=== PATIENT | male | born 1940 | race Caucasian/White ===

== ENCOUNTER → 2018-04-06 14:17 | Outpatient (CLI) | payer MEDICARE, OTHER, SELFPAY | PROVIDERS: Family Provider Family Medicine; PCP Family Medicine; Visit Provider Urology | DX: R31.9 Hematuria, unspecified (principal) | CPT/HCPCS: 87086 ==

== ENCOUNTER → 2020-08-03 12:08 | Outpatient (CLI) | payer MEDICARE, OTHER, SELFPAY ==
[2020-08-03 15:48] LABS: Ferritin 38 ng/mL (26-388); Iron 24 ug/dL (65-175); Iron Binding Capacity,Total 410 ug/dL (250-450); PERCENT IRON SATURATION 5.9 % (15.0-55.0)
== END ==
PROVIDERS: PCP Family Medicine
DX: D50.9 Iron deficiency anemia, unspecified (principal)
CPT/HCPCS: 36415; 82728; 83540; 83550

== ENCOUNTER → 2020-10-30 09:14 | Outpatient (CLI) | payer MEDICARE, OTHER, SELFPAY ==
[2020-10-30 10:48] LABS: Anion Gap 6 (5-15); BUN 46 mg/dL (7-18); BUN/Creat Ratio 19.5 RATIO (10-20); Calcium,Total 9.2 mg/dL (8.5-10.1); Chloride 98 mmol/L (98-107); Creatinine, Serum 2.36 mg/dL (0.70-1.30); EST Glomerular Filtration Rate 28 mL/min (>60); Est Glom Filt Rate - Afr Amer 34 mL/min (>60); Glucose 87 mg/dL (74-106); Potassium 3.7 mmol/L (3.5-5.1); Sodium Level 137 mmol/L (136-145)
== END ==
PROVIDERS: PCP Family Medicine
DX: I50.22 Chronic systolic (congestive) heart failure (principal); I26.99 Other pulmonary embolism without acute cor pulmonale; Z95.810 Presence of automatic (implantable) cardiac defibrillator
CPT/HCPCS: 36415; 80048

== ENCOUNTER → 2020-11-20 08:33 | Outpatient (CLI) | payer MEDICARE, OTHER, SELFPAY ==
[2020-11-20 10:14] LABS: Anion Gap 10 (5-15); BUN 50 mg/dL (7-18); BUN/Creat Ratio 16.3 RATIO (10-20); Calcium,Total 9.6 mg/dL (8.5-10.1); Chloride 94 mmol/L (98-107); Creatinine, Serum 3.07 mg/dL (0.70-1.30); EST Glomerular Filtration Rate 21 mL/min (>60); Est Glom Filt Rate - Afr Amer 25 mL/min (>60); Glucose 86 mg/dL (74-106); Potassium 3.3 mmol/L (3.5-5.1); Sodium Level 139 mmol/L (136-145)
== END ==
PROVIDERS: PCP Family Medicine
DX: I50.22 Chronic systolic (congestive) heart failure (principal)
CPT/HCPCS: 36415; 80048

== ENCOUNTER → 2020-12-15 13:48 | Outpatient (CLI) | payer MEDICARE, OTHER, SELFPAY ==
[2020-12-15 15:19] LABS: Absolute Lymphocyte Count 1.05 X10^3/uL (0.83-4.51); Absolute Neutrophil Count 2.5 X10^3/uL (2.0-7.7); Basophil# 0.03 X10^3/uL; Basophil% 0.7 % (0-1); Eosinophil# 0.36 X10^3/uL; Eosinophils% 8.4 % (0-5); Hematocrit 36.8 % (40-54); Lymphocyte # 1.05 X10^3/ul (0.83-4.51); Lymphocyte % 24.6 % (19-41); Mean Corp Hgb Conc 32.6 g/dL (32-36); Mean Corpuscular Hgb 29.8 pg (27.0-32.0); Mean Corpuscular Volume 91.3 fL (80-94); Mean Platelet Vol. 10.7 fl (6.2-12.0); Monocyte# 0.33 X10^3/uL; Monocyte% 7.7 % (0-10); NRBC Flagged by Analyzer 0 % (0-5); Neutrophil # 2.49 X10^3/uL (2.7-7.7); Neutrophil % 58.4 % (47-70); Platelet Count 230 K/mm3 (150-450); RBC Distribution Width CV 16.6 % (11.6-14.6); RBC Distribution Width SD 55.8 fl (35.1-43.9); Red Blood Count 4.03 M/mm3 (4.6-6.2); White Blood Count 4.3 K/mm3 (4.4-11.0)
[2020-12-15 15:28] LABS: Ammonia < 10.0 umol/L (11-32)
[2020-12-15 15:39] LABS: AST(SGOT) 19 U/L (15-37); Alanine Aminotransfer ALT/SGPT 22 U/L (16-61); Albumin, Serum 3.7 g/dL (3.2-5.0); Alkaline Phosphatase 158 U/L (45-117); Anion Gap 10 (5-15); BUN 57 mg/dL (7-18); BUN/Creat Ratio 22.1 RATIO (10-20); Calcium,Total 9.4 mg/dL (8.5-10.1); Chloride 97 mmol/L (98-107); Creatinine, Serum 2.58 mg/dL (0.70-1.30); EST Glomerular Filtration Rate 26 mL/min (>60); Est Glom Filt Rate - Afr Amer 31 mL/min (>60); Globulin 3.7 g/dL (2.2-4.2); Glucose 114 mg/dL (74-106); Lipase 185 U/L (73-393); Potassium 3.8 mmol/L (3.5-5.1); Protein, Total 7.4 g/dL (6.4-8.2); Sodium Level 138 mmol/L (136-145)
== END ==
PROVIDERS: PCP Family Medicine; Referring Provider Family Medicine; Visit Provider Family Medicine
DX: K81.9 Cholecystitis, unspecified (principal)
CPT/HCPCS: 36415; 80053; 82140; 83690; 85025

== ENCOUNTER → 2021-01-19 09:59 | Outpatient (CLI) | payer MEDICARE, OTHER, SELFPAY ==
[2021-01-19 12:56] LABS: ALB/GLOB Ratio 1.1 RATIO (0.9-2.4); AST(SGOT) 27 U/L (15-37); Alanine Aminotransfer ALT/SGPT 25 U/L (16-61); Albumin, Serum 3.8 g/dL (3.2-5.0); Alkaline Phosphatase 142 U/L (45-117); Anion Gap 11 (5-15); BUN 52 mg/dL (7-18); BUN/Creat Ratio 19.6 RATIO (10-20); Calcium,Total 8.8 mg/dL (8.5-10.1); Chloride 98 mmol/L (98-107); Creatinine, Serum 2.65 mg/dL (0.70-1.30); EST Glomerular Filtration Rate 25 mL/min (>60); Est Glom Filt Rate - Afr Amer 30 mL/min (>60); Globulin 3.6 g/dL (2.2-4.2); Glucose 119 mg/dL (74-106); Potassium 3.9 mmol/L (3.5-5.1); Protein, Total 7.4 g/dL (6.4-8.2); Sodium Level 138 mmol/L (136-145)
== END ==
PROVIDERS: PCP Family Medicine; Visit Provider Family Medicine
DX: L29.9 Pruritus, unspecified (principal)
CPT/HCPCS: 36415; 80053

== ENCOUNTER → 2021-05-28 15:02 | Outpatient (CLI) | payer MEDICARE, OTHER, SELFPAY ==
[2021-05-28 15:46] LABS: Anion Gap 9 (5-15); BUN 82 mg/dL (7-18); BUN/Creat Ratio 30.8 RATIO (10-20); Calcium,Total 9.2 mg/dL (8.5-10.1); Chloride 97 mmol/L (98-107); Creatinine, Serum 2.66 mg/dL (0.70-1.30); EST Glomerular Filtration Rate 25 mL/min (>60); Est Glom Filt Rate - Afr Amer 30 mL/min (>60); Glucose 96 mg/dL (74-106); Potassium 4.5 mmol/L (3.5-5.1); Sodium Level 136 mmol/L (136-145)
== END ==
PROVIDERS: PCP Family Medicine
DX: I13.0 Hypertensive heart and chronic kidney disease with heart failure and stage 1 through stage 4 chronic kidney disease, or unspecified chronic kidney disease (principal); N18.9 Chronic kidney disease, unspecified
CPT/HCPCS: 80048

== ENCOUNTER → 2021-05-30 18:32 | Outpatient (CLI) | payer MEDICARE, OTHER, SELFPAY ==
[2021-05-30 18:54] LABS: Anion Gap 10 (5-15); BUN 83 mg/dL (7-18); BUN/Creat Ratio 28.4 RATIO (10-20); Calcium,Total 9.4 mg/dL (8.5-10.1); Chloride 99 mmol/L (98-107); Creatinine, Serum 2.92 mg/dL (0.70-1.30); EST Glomerular Filtration Rate 22 mL/min (>60); Est Glom Filt Rate - Afr Amer 27 mL/min (>60); Glucose 114 mg/dL (74-106); Potassium 5.3 mmol/L (3.5-5.1); Sodium Level 136 mmol/L (136-145)
== END ==
PROVIDERS: PCP Family Medicine
DX: R22.43 Localized swelling, mass and lump, lower limb, bilateral (principal); I50.9 Heart failure, unspecified; Z48.812 Encounter for surgical aftercare following surgery on the circulatory system
CPT/HCPCS: 80048

== ENCOUNTER → 2021-06-04 15:15 | Outpatient (CLI) | payer MEDICARE, OTHER, SELFPAY ==
[2021-06-04 17:28] LABS: Hematocrit 29.6 % (40-54); Hemoglobin 9.6 g/dL (13.0-16.5); Mean Corp Hgb Conc 32.4 g/dL (32-36); Mean Corpuscular Hgb 29.7 pg (27.0-32.0); Mean Corpuscular Volume 91.6 fL (80-94); Mean Platelet Vol. 10.6 fl (6.2-12.0); Platelet Count 238 K/mm3 (150-450); RBC Distribution Width CV 18.4 % (11.6-14.6); RBC Distribution Width SD 61.6 fl (35.1-43.9); Red Blood Count 3.23 M/mm3 (4.6-6.2); White Blood Count 3.8 K/mm3 (4.4-11.0)
== END ==
PROVIDERS: PCP Family Medicine
DX: I13.0 Hypertensive heart and chronic kidney disease with heart failure and stage 1 through stage 4 chronic kidney disease, or unspecified chronic kidney disease (principal); I50.23 Acute on chronic systolic (congestive) heart failure; Z79.01 Long term (current) use of anticoagulants
CPT/HCPCS: 85027

== ENCOUNTER → 2021-06-22 11:40 | Outpatient (CLI) | payer MEDICARE, OTHER, SELFPAY ==
[2021-06-22 15:40] LABS: Hemoglobin A1c < 3.8 % (3.8-5.6)
[2021-06-22 15:46] LABS: AST(SGOT) 33 U/L (15-37); Alanine Aminotransfer ALT/SGPT 22 U/L (16-61); Albumin, Serum 3.2 g/dL (3.2-5.0); Alkaline Phosphatase 132 U/L (45-117); Anion Gap 12 (5-15); BUN 124 mg/dL (7-18); BUN/Creat Ratio 43.4 RATIO (10-20); Bilirubin, Direct 0.42 mg/dL (0.00-0.30); Calcium,Total 9.8 mg/dL (8.5-10.1); Chloride 92 mmol/L (98-107); Cholesterol 147 mg/dL (200); Creatinine, Serum 2.86 mg/dL (0.70-1.30); EST Glomerular Filtration Rate 23 mL/min (>60); Est Glom Filt Rate - Afr Amer 27 mL/min (>60); Free T3 1.3 pg/mL (2.18-3.98); Globulin 4.1 g/dL (2.2-4.2); Glucose 93 mg/dL (74-106); High Density Lipoprotein 40 mg/dL; Potassium 3.4 mmol/L (3.5-5.1); Protein, Total 7.3 g/dL (6.4-8.2); Sodium Level 135 mmol/L (136-145); T4 Free Direct 0.67 ng/dL (0.76-1.46); Triglycerides 105 mg/dL; Very Low Density Lipoprotein 21 mg/dL (5-40)
== END ==
PROVIDERS: PCP Family Medicine; Referring Provider Family Medicine; Visit Provider Family Medicine
DX: I10 Essential (primary) hypertension (principal); E78.5 Hyperlipidemia, unspecified; E11.9 Type 2 diabetes mellitus without complications; P61.0 Transient neonatal thrombocytopenia; E03.9 Hypothyroidism, unspecified
CPT/HCPCS: 36415; 80048; 80061; 80076; 83036; 83880; 84439; 84443; 84481

== ENCOUNTER 2021-06-28 09:42 | Inpatient (IN) | payer MEDICARE, OTHER, SELFPAY ==
[2021-06-28] VITALS (18 sets, daily range): BP systolic 82–133; BP diastolic 37–78; PULSE 60–75; RESP 12–20; TEMP 36.2–36.8; O2SAT 100; BMI 24.1; BMI 23.1
--- NOTE | 2021-06-28 10:05 | CT_ITS ---
STUDY: CT BRAIN WITHOUT CONTRAST REASON FOR EXAM: Male, 81 years old. Trauma RADIATION DOSAGE (If Supplied By Facility): CTDIvol = ( 44.99 ) mGy, DLP = ( 829.85 ) mGycm TECHNIQUE: Transaxial CT imaging of the brain was performed without administration of intravenous contrast material. Individualized dose optimization techniques were used for this CT. COMPARISON: None. FINDINGS: There is no acute bleed or infarct. There are chronic ischemic and atrophic changes. The ventricles are normal in configuration. There is no hydrocephalus. The visualized paranasal sinuses are clear. The mastoid air cells are well aerated. There is no skull fracture. CT/Brain/Head without Contrast IMPRESSION: No acute intracranial abnormality. Chronic ischemic and atrophic changes. Electronically Signed: Rogelio Matias MD at 12:05 EST Tel , Service support ,
--- NOTE | 2021-06-28 10:09 | EKG12_ITS ---
Test Reason : FALL Blood Pressure : / mmHG Vent. Rate : 060 BPM Atrial Rate : 060 BPM P-R Int : 260 ms QRS Dur : 190 ms QT Int : 556 ms P-R-T Axes : 000 172 -31 degrees QTc Int : 556 ms AV dual-paced rhythm with prolonged AV conduction Biventricular pacemaker detected Abnormal ECG Confirmed by ABDULLAHI BRYANT, RIGOBERTO ([id number]), web editor LUISA GUNTER ([id number]) on 06/29/2021 1:24:23 PM Referred By: PRADIP Confirmed By:RIGOBERTO FERNANDO MD
--- NOTE | 2021-06-28 10:11 | EDS_ITS ---
HPI History of Present Illness Chief Complaint: Hypotension Informant: patient, spouse/S.O. and other Onset/Context/Timing Onset: Days Context: Sudden Onset Timing: Intermittent Quality: Orthostatic symptoms Location: Generalized Current Severity: Mild Maximum Severity: Severe Worsened by: Upright position Relieved by: Nothing Associated Symptoms Associated Symptoms: Nausea and dizziness Narrative Narrative: Patient is an elderly male with multiple medical problems who went to Dr. Martins's office because of dizziness. He thought he had problems with his ear. states he did remove wax. His blood pressure was noted to be low. He reports dark-colored stool. He is on an anticoagulant. Apparently he fell yesterday. He did hit his head. He denies loss of consciousness. He denies headache. He denies double vision, blurred vision or loss of vision. He denies ringing in his ears. He denies rhinorrhea, congestion postnasal drainage. He denies sore throat. He denies shortness of breath or difficulty breathing. He denies chest discomfort. He denies abdominal pain. He does report dark-colored stools. He denies leg pain or discoloration. He does have swelling due to CHF. He denies increased orthopnea or PND. He denies dysuria, frequency, urgency or hematuria. Patient states he is not on anticoagulant. When arrived she had for me that he is on anticoagulant, Eliquis. Patient is not a good informant. Prior similar symptoms: No Recent Illness/Hospitalization: No [facility] Medical History (Updated 06/28/21 @ 11:[address] Fabiano Decker MD) Benign positional vertigo GI bleed Allergy/AdvReac Type Severity Reaction Status Date / Time No Known Allergies Allergy Verified 06/28/21 09:48 Surgical History unable to obtain unable to obtain Social History (Updated 06/28/21 @ 10:[address] Fabiano Decker MD) household members: spouse Smoking Status: Never smoker substance use type: does not use ROS ROS ED Constitutional Constitutional ED: Denies chills, fever(s), subjective, sweats or weight loss Eyes Eyes: Denies blurry vision, change in vision or diplopia ENT ENT ED: Denies ear pain, rhinorrhea or sore throat Cardiovascular Cardiovascular: Denies chest pain, orthopnea, palpitations, paroxysmal nocturnal dyspnea or racing heartbeat Respiratory/Chest Respiratory/Chest: Denies cough, dyspnea, dyspnea on exertion, orthopnea, paroxysmal nocturnal dyspnea or sputum Gastrointestinal Gastrointestinal: Denies abdominal pain, constipation, diarrhea, melena, nausea or vomiting Genitourinary Genitourinary ED: Denies dysuria, hematuria or urinary frequency Musculoskeletal Musculoskeletal: Denies arthralgias, myalgias or neck pain Integumentary Denies rash Neurologic Neurologic: Reports weakness; Denies headache(s) or paresthesias Endocrine Endocrinology: Denies polydipsia, polyphagia or polyuria Hematologic/Lymphatic Hematologic/Lymphatic: Denies anemia, easy bleeding or easy bruising EXAM Physical Exam Const Vital Signs: 06/28/21 09:43 06/28/21 11:07 06/28/21 12:03 Temperature 97.1 F L Temperature Source Temporal Pulse Rate 60 63 Respiratory Rate 16 15 Respiratory Effort Normal Non-Labored Respiratory Depth Normal Respiratory Pattern Normal Blood Pressure 82/37 L 114/51 L Blood Pressure Mean 52 72 Pulse Ox 100 Oxygen Delivery Method Room Air Nasal Cannula Oxygen Flow Rate (L/min) 2 Positive well nourished and well developed General Appearance ED: well developed, NAD and pallor HEENT Reports TM's clear and dry mucous membranes; Denies moist mucous membranes HEENT Narrative: Nares patent. trauma; Negative for tenderness Tympanic Membrane ED: Yes TM's clear Mouth ED: Yes dry mucous membranes Mouth: dry mucous membranes Eyes PERRL and EOMs intact bilaterally General Eye ED: Yes pale conjunctiva; Negative for scleral icterus Neck no lymphadenopathy, supple and no JVD Chest Wall inspection of chest normal and palpation of chest normal Resp normal respiratory effort and clear to auscultation bilaterally Cardio regular rate, regular rhythm, S1 normal heart sound, S2 normal heart sound and no murmurs GI normal to inspection, nondistended, normoactive bowel sounds, non-tender and non-distended GI Narrative: Rectal exam is unremarkable. There is no fissures, fistulas or hemorrhoids. Prostate normal size nontender with no nodules. Stool is very dark but not black and no blood noted Palpation: soft Back/Spine no CVA tenderness Cervical Spine: Negative for cervical spine tenderness Thoracic Spine / Upper Back: Negative for thoracic spinal tenderness or paraspinal muscle tenderness Lumbar Spine / Lower Back: Negative for lumbar spinal tenderness Extremity normal to inspection General Extremety ED: Yes edema; Negative for tenderness General Extremity: edema Neuro oriented x3 and CN's II-XII intact bilaterally Sensorium / Orientation: alert Psych mental status grossly normal Skin no rashes or lesions noted and No no wounds General Skin Exam: pallor; Negative for jaundice MDM MDM MDM Narrative Medical decision making narrative: Patient presents because of hypotension. Patient appears pale. Will assess for GI bleed. CBC was obtained to assess white count and hemoglobin. Basic metabolic panel was obtained to assess renal function, electrolytes and BUN to creatinine ratio. Clinically he appears dehydrated. Troponin was obtained to rule out atypical presentation for cardiac ischemia. Clinically he appears fluid overloaded. Since he is hypotensive and only 500 cc of normal saline was ordered as a bolus. Because he is on an anticoagulant hit his head will obtain CT of the head to rule out intracranial bleed. Case was discussed with hospitalist. He requested PCU admission. Discussed PCU stepdown versus ICU for intensity of service for nursing care. Since patient is not actively bleeding Lab Data Labs: Laboratory Results - last 24 hr 06/28/21 06/28/21 06/28/21 10:55 10:55 10:55 WBC 4.8 RBC 1.45 L Hgb 4.2 L* Hct 13.2 L MCV 91.0 MCH 29.0 MCHC 31.8 L RDW Std Deviation 56.2 H RDW Coeff of Anuradha 16.8 H Plt Count 236 MPV 10.2 Immature Gran % (Auto) 0.400 Neut % (Auto) 69.3 Lymph % (Auto) 16.1 L [place] % (Auto) 9.4 Eos % (Auto) 4.4 Baso % (Auto) 0.4 Absolute Neuts (auto) 3.3 Absolute Lymphs (auto) 0.77 L Nucleated RBC % 0 Differential Comment COMMENT Diff Path Review May foll Sodium 135 L Potassium 2.5 L* Chloride 88 L Carbon Dioxide 34.0 H Anion Gap 13 BUN 168 H* Creatinine 3.56 H Estim Creat Clear Calc 14.96 Est GFR (MDRD) Af Amer 21 L Est GFR (MDRD) Non-Af 18 L BUN/Creatinine Ratio 47.2 H Glucose 164 H Lactic Acid 2.0 Calcium 8.8 Total Bilirubin 0.50 AST 25 ALT 23 Alkaline Phosphatase 97 Troponin I High Sens 37 Total Protein 6.3 L Albumin 2.8 L Globulin 3.5 Albumin/Globulin Ratio 0.8 L Crossmatch 06/28/21 12:00 WBC RBC Hgb Hct MCV MCH MCHC RDW Std Deviation RDW Coeff of Anuradha Plt Count MPV Immature Gran % (Auto) Neut % (Auto) Lymph % (Auto) [place] % (Auto) Eos % (Auto) Baso % (Auto) Absolute Neuts (auto) Absolute Lymphs (auto) Nucleated RBC % Differential Comment Diff Path Review Sodium Potassium Chloride Carbon Dioxide Anion Gap BUN Creatinine Estim Creat Clear Calc Est GFR (MDRD) Af Amer Est GFR (MDRD) Non-Af BUN/Creatinine Ratio Glucose Lactic Acid Calcium Total Bilirubin AST ALT Alkaline Phosphatase Troponin I High Sens Total Protein Albumin Globulin Albumin/Globulin Ratio Crossmatch See Detail Radiography Chest X-Ray - ED: 1 View (Single view x-ray of the pelvis reveals no evidence of fracture. X-rays interpreted by me at 1154.) Diagnostic Testing: Clinical Impression(s) from Imaging Studies Brain CT 06/28/21 10:05 IMPRESSION: No acute intracranial abnormality. Chronic ischemic and atrophic changes. Electronically Signed: Rogelio Matias MD at 12:05 EST Tel , Service support , Pelvis X-Ray 06/28/21 11:35 IMPRESSION: No fracture or dislocation in the pelvis. Mild degenerative changes in the hips. Electronically Signed: Rogelio Matias MD at 12:07 EST Tel , Service support , EKG Initial EKG: Attestation: I personally reviewed and interpreted this EKG as follows: Interpretation: Paced (AV dual paced rhythm with prolonged AV conduction. Rate is 60. DE interval is 260 ms. QRS duration 90 ms. QT duration 556 ms.) Critical Care Time Critical Care Time: Yes Critical care time (excluding procedures): 30-74 minutes (36 minutes), Including time spent:, Discussing w/Patient &/or Family/It Risk Advisor (Need for blood transfusion and risks. Consent was obtained.), Discussing w/Consultants (Spoke with Dr. Merida cow tester who will see patient in consultation.) and Arranging Admission or Transfer Discharge Plan Dx/Rx/DC Orders Clinical Impression: Acute GI bleeding, Anemia due to acute blood loss, Acute hypotension, Acute on chronic kidney failure, Anticoagulant-induced bleeding, Blood transfusion during current hospitalisation Disposition Disposition: Acute Care Hospital [facility]
[2021-06-28 11:07] LABS: Absolute Lymphocyte Count 0.77 X10^3/uL (0.83-4.51); Absolute Neutrophil Count 3.3 X10^3/uL (2.0-7.7); Basophil# 0.02 X10^3/uL; Basophil% 0.4 % (0-1); Eosinophil# 0.21 X10^3/uL; Eosinophils% 4.4 % (0-5); Hematocrit 13.2 % (40-54); Lymphocyte # 0.77 X10^3/ul (0.83-4.51); Lymphocyte % 16.1 % (19-41); Mean Corp Hgb Conc 31.8 g/dL (32-36); Mean Platelet Vol. 10.2 fl (6.2-12.0); Monocyte# 0.45 X10^3/uL; Monocyte% 9.4 % (0-10); NRBC Flagged by Analyzer 0 % (0-5); Neutrophil # 3.32 X10^3/uL (2.7-7.7); Neutrophil % 69.3 % (47-70); POSITIVE COUNT YES; Platelet Count 236 K/mm3 (150-450); RBC Distribution Width CV 16.8 % (11.6-14.6); RBC Distribution Width SD 56.2 fl (35.1-43.9); Red Blood Count 1.45 M/mm3 (4.6-6.2); White Blood Count 4.8 K/mm3 (4.4-11.0)
[2021-06-28 11:16] LABS: Differential Indicated SCAN CRITERIA MET; Hemoglobin 4.2 g/dL (13.0-16.5)
--- NOTE | 2021-06-28 11:35 | RAD_ITS ---
STUDY: X-RAY - PELVIS REASON FOR EXAM: Male, 81 years old. Fall TECHNIQUE: One view of the pelvis was obtained. COMPARISON: None. FINDINGS: There is no evidence of fracture or dislocation. There are mild degenerative changes in the hips. There are vascular calcifications noted. There are no radiodense foreign bodies. RAD/Pelvis 1 or 2 Views IMPRESSION: No fracture or dislocation in the pelvis. Mild degenerative changes in the hips. Electronically Signed: Rogelio Matias MD at 12:07 EST Tel , Service support ,
[2021-06-28 11:39] LABS: ALB/GLOB Ratio 0.8 RATIO (0.9-2.4); AST(SGOT) 25 U/L (15-37); Alanine Aminotransfer ALT/SGPT 23 U/L (16-61); Albumin, Serum 2.8 g/dL (3.2-5.0); Alkaline Phosphatase 97 U/L (45-117); Anion Gap 13 (5-15); BUN 168 mg/dL (7-18); BUN/Creat Ratio 47.2 RATIO (10-20); Calcium,Total 8.8 mg/dL (8.5-10.1); Chloride 88 mmol/L (98-107); Creatinine, Serum 3.56 mg/dL (0.70-1.30); EST Glomerular Filtration Rate 18 mL/min (>60); Est Glom Filt Rate - Afr Amer 21 mL/min (>60); Estimated Creatinine Clearance 14.96 ml/min; Globulin 3.5 g/dL (2.2-4.2); Glucose 164 mg/dL (74-106); Potassium 2.5 mmol/L (3.5-5.1); Protein, Total 6.3 g/dL (6.4-8.2); Sodium Level 135 mmol/L (136-145); Troponin-I HS 37 pg/mL (3.0-78.0)
[2021-06-28 13:01] LABS: Bacteria 0 SEEN /hpf (None Seen); Mucous, Urine 0 SEEN /hpf (<or=2+); Red Blood Cells-Urine 0 SEEN /hpf (0-5); Squamous Epithelial Cells - UA 0 SEEN /hpf (0-5); White Blood Cells 0 SEEN /hpf (0-5)
[2021-06-28 13:07] LABS: Color, Urine Yellow (Yellow); Glucose, Dipstick Normal (Normal); Ketone-Dipstick Negative (Negative); Leukocyte Esterase-Dipstick Negative /ul (Negative); Nitrite-Dipstick Negative (Negative); Occult Blood-Urine Negative /ul (Negative); Protein-Dipstick Negative (Negative); Urine Bilirubin Dipstick Negative (Negative); Urine Clarity Clear (Clear); Urine Urobilinogen Normal (Normal)
[2021-06-28] MEDS: DiphenhydrAMINE 25 MG Capsule PO (14:19)
[2021-06-28] MEDS: Acetaminophen 325 MG Tablet 650 MG PO (14:19)
--- NOTE | 2021-06-28 14:28 | ED.RN ---
Addendum entered by Jackie Anderson 06/28/21 14:28: * 4 hours Original Note: Dr. Decker and Dr. Sterling in agreement to run each unit of blood over 4 overs.
[2021-06-28 15:03] LABS: Reflex Lactate? Y
--- NOTE | 2021-06-28 15:04 | PCM.HP.STD ---
[facility] - General General Date of Admission: 06/28/21 Date of Service: 06/28/21 Chief Complaint: dizziness. HPI Narrative MEGAN SANDHU, is a 81 M who presents with dizziness. Saw his primary care doctor directed patient to the emergency room. Patient was found to have a hemoglobin of 4.2. Gastroenterology was contacted and I will be seeing the patient in consultation. Patient was ordered from the emergency room 4 units of packed red blood cells. Patient has been noticing, over months, that he is having dark stools. This is changed. Patient is on apixaban for pulmonary embolism. He states that he is also been taking ibuprofen intermittently as well despite this. He states that he just feels dizzy when he stands up. Denies any new shortness of breath but he does have chronic dyspnea. Denies any hematemesis, epistaxis hemoptysis. [facility] Medical History Benign positional vertigo CKD (chronic kidney disease), stage IV GI bleed HFrEF (heart failure with reduced ejection fraction) Pulmonary embolism Home Medications apixaban [Eliquis] 2.5 mg PO BID 06/28/21 [History Last Taken Unknown] gabapentin 600 mg PO BID 06/28/21 [History Last Taken Unknown] levothyroxine 75 mcg PO DAILY 06/28/21 [History Last Taken Unknown] mecobalamin (vitamin B12) [B12 Active] 1,000 mcg PO DAILY 06/28/21 [History Last Taken Unknown] metolazone 5 mg PO MOWEFR 06/28/21 [History Last Taken Unknown] metoprolol succinate 100 mg PO DAILY 06/28/21 [History Last Taken Unknown] btiejnck-ngq-anjsu-vit K-lycop [Men's 50 Plus Multivitamin] 1 tab PO DAILY 06/28/21 [History Last Taken Unknown] pantoprazole 40 mg PO DAILY 06/28/21 [History Last Taken Unknown] potassium chloride [K-Dur] 20 meq PO BID 06/28/21 [History Last Taken Unknown] sacubitril-valsartan [Entresto] 1 tab PO BID 06/28/21 [History Last Taken Unknown] sertraline 25 mg PO DAILY 06/28/21 [History Last Taken Unknown] spironolactone 25 mg PO DAILY 06/28/21 [History Last Taken Unknown] tamsulosin 0.4 mg PO DAILY 06/28/21 [History Last Taken Unknown] torsemide 100 mg PO BID 06/28/21 [History Last Taken Unknown] Allergy/AdvReac Type Severity Reaction Status Date / Time No Known Allergies Allergy Verified 06/28/21 09:48 Surgical History unable to obtain Social History household members: spouse Smoking Status: Never smoker substance use type: does not use ROS ROS Narrative All review of systems were negative except as mentioned above in the history of present illness and the other review of systems. Vital Signs Vital Signs Vital Signs: 06/28/21 09:43 06/28/21 11:07 06/28/21 12:03 Temperature 36.2 C L Temperature Source Temporal Pulse Rate 60 63 Respiratory Rate 16 15 Respiratory Effort Normal Non-Labored Respiratory Depth Normal Respiratory Pattern Normal Blood Pressure 82/37 L 114/51 L Blood Pressure Mean 52 72 Blood Pressure Source Blood Pressure Position Blood Pressure Location Pulse Ox 100 Oxygen Delivery Method Room Air Nasal Cannula Oxygen Flow Rate (L/min) 2 06/28/21 13:35 06/28/21 14:18 06/28/21 14:26 Temperature 36.3 C L 36.3 C L 36.2 C L Temperature Source Oral Oral Temporal Pulse Rate 64 67 70 Respiratory Rate 14 17 12 Respiratory Effort Respiratory Depth Respiratory Pattern Blood Pressure 100/46 L 133/48 H 133/48 H Blood Pressure Mean 64 76 76 Blood Pressure Source Monitor Blood Pressure Position Semi-Fowlers Blood Pressure Location Left Arm Pulse Ox 100 100 100 Oxygen Delivery Method Nasal Cannula Nasal Cannula Nasal Cannula Oxygen Flow Rate (L/min) 2 2 2 06/28/21 14:33 Temperature 36.4 C L Temperature Source Temporal Pulse Rate 65 Respiratory Rate 20 H Respiratory Effort Respiratory Depth Respiratory Pattern Blood Pressure 117/52 L Blood Pressure Mean 73 Blood Pressure Source Monitor Blood Pressure Position Semi-Fowlers Blood Pressure Location Left Arm Pulse Ox 100 Oxygen Delivery Method Nasal Cannula Oxygen Flow Rate (L/min) 2 Weight Weight: 70 kg Body Mass Index (BMI) 24.1 Physical Exam Const alert and oriented x3 General Appearance: cooperative HEENT normocephalic, head/scalp atraumatic and hearing grossly normal bilaterally Resp normal respiratory effort, no retractions and no use of accessory muscles Cardio regular rate, regular rhythm, S1 normal heart sound and S2 normal heart sound GI normal to inspection, nondistended, normoactive bowel sounds, soft to palpation and non-tender Extremity normal to inspection and full ROM Skin no rashes or lesions noted and no wounds Neuro Sensorium / Orientation: awake Results Lab / Micro Data Attestation: I reviewed the patient's lab results. Result Diagrams: 06/28/21 10:55 06/28/21 10:55 Labs: Laboratory Results - last 24 hr 06/28/21 10:55: WBC 4.8, RBC 1.45 L, Hgb 4.2 L*, Hct 13.2 L, MCV 91.0, MCH 29.0, MCHC 31.8 L, RDW Std Deviation 56.2 H, RDW Coeff of Anuradha 16.8 H, Plt Count 236, MPV 10.2, Immature Gran % (Auto) 0.400, Neut % (Auto) 69.3, Lymph % (Auto) 16.1 L, [place] % (Auto) 9.4, Eos % (Auto) 4.4, Baso % (Auto) 0.4, Absolute Neuts (auto) 3.3, Absolute Lymphs (auto) 0.77 L, Nucleated RBC % 0, Differential Comment COMMENT, Diff Path Review November06/28/21 10:55: Sodium 135 L, Potassium 2.5 L*, Chloride 88 L, Carbon Dioxide 34.0 H, Anion Gap 13, BUN 168 H*, Creatinine 3.56 H, Estim Creat Clear Calc 14.96, Est GFR (MDRD) Af Amer 21 L, Est GFR (MDRD) Non-Af 18 L, BUN/Creatinine Ratio 47.2 H, Glucose 164 H, Calcium 8.8, Total Bilirubin 0.50, AST 25, ALT 23, Alkaline Phosphatase 97, Troponin I High Sens 37, Total Protein 6.3 L, Albumin 2.8 L, Globulin 3.5, Albumin/Globulin Ratio 0.8 L 06/28/21 10:55: Lactic Acid 2.0 06/28/21 12:00: Blood Type AB POSITIVE, Antibody Screen NEGATIVE, Crossmatch See Detail 06/28/21 12:45: Urine Color Yellow, Urine Clarity Clear, Urine pH 6.0, Ur Specific Carmi 1.010, Urine Protein Negative, Urine Glucose (UA) Normal, Urine Ketones Negative, Urine Occult Blood Negative, Urine Nitrite Negative, Urine Bilirubin Negative, Urine Urobilinogen Normal, Ur Leukocyte Esterase Negative, Urine RBC 0 SEEN, Urine WBC 0 SEEN, Ur Squamous Epith Cells 0 SEEN, Urine Bacteria 0 SEEN, Urine Mucus 0 SEEN Micro: Microbiology 06/28/21 10:15 Stool Stool Occult Blood (BRAD) - Final Occult Blood Positive Radiology Impression Brain CT 06/28/21 10:05 IMPRESSION: No acute intracranial abnormality. Chronic ischemic and atrophic changes. Electronically Signed: Rogelio Matias MD at 12:05 EST Tel , Service support , Pelvis X-Ray 06/28/21 11:35 IMPRESSION: No fracture or dislocation in the pelvis. Mild degenerative changes in the hips. Electronically Signed: Rogelio Matias MD at 12:07 EST Tel , Service support , Assessment & Plan Assessment/Plan (1) Acute blood loss anemia: (2) Acute GI bleeding: (3) Hypokalemia: PLAN: 1. Acute blood loss anemia Secondary to GI bleed Suspect is probably been chronic but cannot do to pinpoint where the patient became symptomatic with his dizziness Patient has been noticing dark stool over months and has been taking NSAIDs as well. Patient ordered 4 units in the emergency room. Hemoccult only advised 3 units be administered at this time. 2. GI bleed Etiology unclear at this time but could include PUD versus AVM versus other Complicated by the patient's use of apixaban but also NSAIDs GI on consultation Start PPI n.p.o. for now 3. Hypokalemia Replace Check magnesium 4. Heart failure with reduced ejection fraction Discussed with the patient's production corrugator, Dr. Roth, who states patient has an EF of 15% Avoid excess fluids at this time. Patient may need additional diuretics with IV fluids Discussed with his production corrugator, Dr. Roth, and his production corrugator is okay with the undergoing endoscopy if indicated. 5. Acute on Chronic kidney disease stage IV Creatinine was 2.86 back on June 22 now up to 3.56. Hold diuretics Patient will be receiving blood cells so we will monitor. Hold off on additional IV fluids given the patient's history of heart failure 6. History of PE On apixaban which is obviously being held Check records from [facility] 7. VTE prophylaxis: SCDs. Chemical prophylaxis contraindicated in light of the anemia and GI bleed 8. CODE STATUS: Addressed with the patient. Patient is full CODE STATUS 9. Code vaccination status: Patient has been vaccinated for COVID-19. He has received his influenza vaccine recently as well but has yet to receive his booster. LUIS pt's dtr at bedside Charges/Coding Visit Charges Inpatient E&M: 57699 Init Hosp L3
[2021-06-28 16:16] LABS: Lactic Acid 2.2 mmol/L (0.4-1.9)
[2021-06-28] MEDS: 0.9% Saline Lock 10 ML Syringe IV ×2 (16:40→22:09)
[2021-06-28] MEDS: Potassium Chloride Oral Tablet 20 MEQ 60 MEQ PO (17:26)
[2021-06-28] MEDS: Potassium Chloride Oral Tablet 20 MEQ PO (17:26)
[2021-06-28] MEDS: Potassium Chloride 10mEq/100mL 10 MEQ/100 ML IV.SOLN. 100 MEQ IV BOLUS (17:26)
[2021-06-28] MEDS: Potassium Chloride 10mEq/100mL 10 MEQ/100 ML IV.SOLN. 50 MEQ IV BOLUS ×3 (19:12→23:19)
--- NOTE | 2021-06-28 19:21 | CON.PCM.GI_ITS ---
HPI Consult Data Date of Consult: 06/28/21 HPI Narrative HPI Narrative: MEGAN SANDHU, is a 81 M who presents to the ER for the evaluation of dizziness. He has a history of atrial fibrillation with CHF, RVR, CKD, GI bleed secondary to gastric ulcer on Eliquis therapy for atrial fibrillation. Patient is not a good historian and does not give a good history so most of history is taken from patient's chart. Patient is an elderly male with multiple medical problems who went to Dr. Martins's office because of dizziness. He thought he had problems with his ear. states he did remove wax. His blood pressure was noted to be low. He reports dark-colored stool. He is on an anticoagulant. Apparently he fell yesterday. He did hit his head. He denies loss of consciousness. He denies headache. He denies double vision, blurred vision or loss of vision. He denies ringing in his ears. He denies rhinorrhea, congestion postnasal drainage. He denies sore throat. He denies shortness of breath or difficulty breathing. He denies chest discomfort. He denies abdominal pain. He does report dark-colored stools. He denies leg pain or discoloration. He does have swelling due to CHF. He denies increased orthopnea or PND. He denies dysuria, frequency, urgency or hematuria. . [facility] Medical History Benign positional vertigo CKD (chronic kidney disease), stage IV GI bleed HFrEF (heart failure with reduced ejection fraction) Pulmonary embolism Home Medications apixaban [Eliquis] 2.5 mg PO BID 06/28/21 [History Last Taken Unknown] gabapentin 600 mg PO BID 06/28/21 [History Last Taken Unknown] levothyroxine 75 mcg PO DAILY 06/28/21 [History Last Taken Unknown] mecobalamin (vitamin B12) [B12 Active] 1,000 mcg PO DAILY 06/28/21 [History Last Taken Unknown] metolazone 5 mg PO MOWEFR 06/28/21 [History Last Taken Unknown] metoprolol succinate 100 mg PO DAILY 06/28/21 [History Last Taken Unknown] lxvcfxvq-nhc-dsioa-vit K-lycop [Men's 50 Plus Multivitamin] 1 tab PO DAILY 06/28/21 [History Last Taken Unknown] pantoprazole 40 mg PO DAILY 06/28/21 [History Last Taken Unknown] potassium chloride [K-Dur] 20 meq PO BID 06/28/21 [History Last Taken Unknown] sacubitril-valsartan [Entresto] 1 tab PO BID 06/28/21 [History Last Taken Unknown] sertraline 25 mg PO DAILY 06/28/21 [History Last Taken Unknown] spironolactone 25 mg PO DAILY 06/28/21 [History Last Taken Unknown] tamsulosin 0.4 mg PO DAILY 06/28/21 [History Last Taken Unknown] torsemide 100 mg PO BID 06/28/21 [History Last Taken Unknown] Allergy/AdvReac Type Severity Reaction Status Date / Time No Known Allergies Allergy Verified 06/28/21 09:48 Surgical History unable to obtain Social History household members: spouse Smoking Status: Never smoker substance use type: does not use ROS Gastrointestinal Gastrointestinal: Reports hematochezia, loose stools and melena Physical Exam Const alert General Appearance: cooperative Orientation / Consciousness: oriented to person HEENT hearing grossly normal bilaterally Head and Scalp: normal to inspection Face and Sinus: face symmetric Nose: external nose normal Mouth: oral and palatal mucosa normal Eyes conjunctivae normal General Eye: normal appearance of both eyes Neck full ROM General: normal visual inspection Lymph Lymphatic: no lymphadenopathy noted Chest inspection of chest normal and palpation of chest normal Chest: symmetrical chest wall rise Resp normal respiratory effort Effort and Inspection: able to speak in complete sentences Cardio Cardio Narrative: irregularly irregular GI non-distended Percussion: normal to percussion Rectal Exam: deferred Neuro Speech: speech normal Gait (Neuro): normal gait Lab / Micro Data Result Diagrams: 06/28/21 10:55 06/28/21 10:55 Labs: Laboratory Results - last 24 hr 06/28/21 10:55: WBC 4.8, RBC 1.45 L, Hgb 4.2 L*, Hct 13.2 L, MCV 91.0, MCH 29.0, MCHC 31.8 L, RDW Std Deviation 56.2 H, RDW Coeff of Anuradha 16.8 H, Plt Count 236, MPV 10.2, Immature Gran % (Auto) 0.400, Neut % (Auto) 69.3, Lymph % (Auto) 16.1 L, [place] % (Auto) 9.4, Eos % (Auto) 4.4, Baso % (Auto) 0.4, Absolute Neuts (auto) 3.3, Absolute Lymphs (auto) 0.77 L, Nucleated RBC % 0, Differential Comment COMMENT, Diff Path Review November06/28/21 10:55: Sodium 135 L, Potassium 2.5 L*, Chloride 88 L, Carbon Dioxide 34.0 H, Anion Gap 13, BUN 168 H*, Creatinine 3.56 H, Estim Creat Clear Calc 14 .96, Est GFR (MDRD) Af Amer 21 L, Est GFR (MDRD) Non-Af 18 L, BUN/Creatinine Ratio 47.2 H, Glucose 164 H, Calcium 8.8, Total Bilirubin 0.50, AST 25, ALT 23, Alkaline Phosphatase 97, Troponin I High Sens 37, Total Protein 6.3 L, Albumin 2.8 L, Globulin 3.5, Albumin/Globulin Ratio 0.8 L 06/28/21 10:55: Lactic Acid 2.0 06/28/21 12:00: Blood Type AB POSITIVE, Antibody Screen NEGATIVE, Crossmatch See Detail 06/28/21 12:45: Urine Color Yellow, Urine Clarity Clear, Urine pH 6.0, Ur Specific [place] 1.010, Urine Protein Negative, Urine Glucose (UA) Normal, Urine Ketones Negative, Urine Occult Blood Negative, Urine Nitrite Negative, Urine Bilirubin Negative, Urine Urobilinogen Normal, Ur Leukocyte Esterase Negative, Urine RBC 0 SEEN, Urine WBC 0 SEEN, Ur Squamous Epith Cells 0 SEEN, Urine Bacteria 0 SEEN, Urine Mucus 0 SEEN 06/28/21 15:40: Lactic Acid 2.2 H* Micro: Microbiology 06/28/21 10:15 Stool Stool Occult Blood (BRAD) - Final Occult Blood Positive Radiology Impression Brain CT 06/28/21 10:05 IMPRESSION: No acute intracranial abnormality. Chronic ischemic and atrophic changes. Electronically Signed: Rogelio Matias MD at 12:05 EST Tel , Service support , Pelvis X-Ray 06/28/21 11:35 IMPRESSION: No fracture or dislocation in the pelvis. Mild degenerative changes in the hips. Electronically Signed: Rogelio Matias MD at 12:07 EST Tel , Service support , Assessment & Plan Assessment/Plan (1) Hyperuricemia: PLAN: Hyperuricemia in the setting of CKD and acute GI bleed. This would explain his severely low hemoglobin at 4. He will need to be transfused at least 3 units of packed red blood cells probably with Lasix. He will need to undergo an upper endoscopy to evaluate the upper GI tract. Recommend a PPI drip. His kidney function. Patient is very sick at this time. Prognosis is guarded. (2) Acute blood loss anemia: PLAN: I suspect that is secondary to upper GI source. That would be a peptic ulcer, AVM, telangiectasia, portal gastropathy. Hopefully will be able to identify a source in the morning. Charges/Coding Visit Charges Inpatient E&M: 85691 Init Hosp L3
[2021-06-28] MEDS: Gabapentin 600 MG Tablet PO (20:45)
[2021-06-28] MEDS: Furosemide 40 MG/4 ML Vial IV (22:09)
[2021-06-29] VITALS (15 sets, daily range): BP systolic 107–132; BP diastolic 51–70; PULSE 69–83; RESP 14–18; TEMP 36–36.9; O2SAT 96–100
[2021-06-29 02:48] LABS: Absolute Lymphocyte Count 0.88 X10^3/uL (0.83-4.51); Absolute Neutrophil Count 3.9 X10^3/uL (2.0-7.7); Basophil# 0.05 X10^3/uL; Basophil% 0.9 % (0-1); Eosinophil# 0.21 X10^3/uL; Eosinophils% 3.8 % (0-5); Hematocrit 22.4 % (40-54); Hemoglobin 7.5 g/dL (13.0-16.5); Lymphocyte # 0.88 X10^3/ul (0.83-4.51); Lymphocyte % 15.9 % (19-41); Mean Corp Hgb Conc 33.5 g/dL (32-36); Mean Corpuscular Hgb 29.2 pg (27.0-32.0); Mean Corpuscular Volume 87.2 fL (80-94); Monocyte# 0.46 X10^3/uL; Monocyte% 8.3 % (0-10); NRBC Flagged by Analyzer 0 % (0-5); Neutrophil % 70.7 % (47-70); Platelet Count 220 K/mm3 (150-450); RBC Distribution Width CV 15.6 % (11.6-14.6); RBC Distribution Width SD 49.5 fl (35.1-43.9); Red Blood Count 2.57 M/mm3 (4.6-6.2); White Blood Count 5.5 K/mm3 (4.4-11.0)
[2021-06-29 03:00] LABS: International Normalized Ratio 1.3; Prothrombin Time (Protime)PT. 15.9 SECONDS (11.7-14.9)
[2021-06-29 03:01] LABS: Partial Thromboplast Time 40.9 Seconds (24.1-36.2)
[2021-06-29 04:09] LABS: Albumin, Serum 2.8 g/dL (3.2-5.0); BUN 142 mg/dL (7-18); BUN/Creat Ratio 47.3 RATIO (10-20); EST Glomerular Filtration Rate 21 mL/min (>60); Est Glom Filt Rate - Afr Amer 26 mL/min (>60); Estimated Creatinine Clearance 17.75 ml/min; Glucose 118 mg/dL (74-106); Protein, Total 6.6 g/dL (6.4-8.2)
[2021-06-29 04:10] LABS: ALB/GLOB Ratio 0.7 RATIO (0.9-2.4); AST(SGOT) 30 U/L (15-37); Alanine Aminotransfer ALT/SGPT 22 U/L (16-61); Alkaline Phosphatase 82 U/L (45-117); Anion Gap 12 (5-15); Calcium,Total 8.9 mg/dL (8.5-10.1); Chloride 95 mmol/L (98-107); Globulin 3.8 g/dL (2.2-4.2); Magnesium 2.3 mg/dL (1.6-2.6); Potassium 3.3 mmol/L (3.5-5.1); Sodium Level 138 mmol/L (136-145)
[2021-06-29] MEDS: 0.9% Saline Lock 10 ML Syringe IV (05:19)
[2021-06-29] MEDS: Levothyroxine 75 MCG Tablet PO (05:21)
[2021-06-29] MEDS: Potassium Chloride 10mEq/100mL 10 MEQ/100 ML IV.SOLN. 75 MEQ IV BOLUS ×4 (05:51→13:35)
[2021-06-29] MEDS: Potassium Chloride Oral Tablet 20 MEQ PO ×2 (10:16→16:22)
[2021-06-29] MEDS: Tamsulosin HCl 0.4 MG Capsule PO (10:17)
[2021-06-29] MEDS: Gabapentin 600 MG Tablet PO ×2 (10:17→20:26)
[2021-06-29] MEDS: metOLazone 5 MG Tablet PO (10:17)
[2021-06-29] MEDS: Multivitamins,Ther W-Minerals Tablet 1 TABLET PO (10:17)
[2021-06-29] MEDS: Metoprolol(XL)Succ 100 MG Tablet PO (10:17)
[2021-06-29] MEDS: Sertraline 50 MG Tablet 25 MG PO (10:18)
--- NOTE | 2021-06-29 10:47 | CASEMGMT ---
JAIMIE CRENSHAW assessment: Face to face with pt for initial transition planning/care coordination assessment. RN FLOWER introduced self and role at [facility], pt voices understanding and consents to assessment. Pt is sitting up in chair in no distress on room air. Pt is A/Ox4 and answers questions appropriately. Care providers, pharmacy, and demographics verified. Presentation: Pt c/o fall yesterday, c/o dizziness and tailbone pain Admitting dx: GI bleed, anemia, hypotension PCP: [facility] Specialists: library media specialist in [place] Preferred Pharmacy: [facility] Insurance: [employer] A/B, AARP Prescription Benefit: MCR A/B, AARP Living Will/HPOA: Pt does not have LW/HPOA but declines AD info, stating 'I have all that info at home.' LNOK: Shaylee Bundy, daughter; Zuleyka Nascimento, ex- Living Arrangements: Pt lives alone in 1 story home with 1 step in and states no concerns at home. Pt states ex- assists with ADL's. Pt states ex- does not officially live in home but is there 'most of the time.' Transportation: Pt drives self and states no transportation concerns. DME/HHC: Pt states has the following DME: cane, walker, grab bars, bench in shower, and 2L nc at bedtime thru [employer]. Pt states no need for any DME. Pt states no hx of SNF but is active with [facility] for SN/PT/OT. [facility] order placed and clinicals faxed. Per therapy, pt was CGA. Pt states no concerns with going home at discharge. Pt is retired. Pt states does not smoke cigarettes but does occasionally drink ETOH. Pt states no further concerns/needs. CM to to follow for any further discharge planning/needs. Advised pt to ask for CM if any further questions/concerns/needs arise, voices understanding. Pt Goal: Home Plan: Home [place] JAIMIE CRENSHAW
--- NOTE | 2021-06-29 13:07 | PCM.PN.HOSP ---
Documented by User: Adam FORMAN 06/29/21 13:20 Subjective Subjective Patient is an 81-year-old male comfortably resting in a chair, alert and orient x3. Patient reports improvement in his dizziness and weakness from admission. Denies development of any new symptoms overnight. Does not appear in acute distress. Objective Data Objective Data Vital Signs: Vital Signs Temp Pulse Resp BP Pulse Ox 97.8 F 80 16 109/51 L 100 06/29/21 10:00 06/29/21 10:17 06/29/21 10:00 06/29/21 10:00 06/29/21 10:00 Oxygen Flow Rate (L/min) 2 Oxygen Delivery Method Room Air Weight: 147 lb 4.301 oz Body Mass Index (BMI) 23.1 Intake & Output: Intake and Output for Last 24 Hours 06/27/21 06/28/21 06/29/21 23:59 23:59 23:59 Intake Total 941 / 941 Output Total 950 / 950 1000 / 1000 Balance 1065.00 / 1065.00 -59 / -59 Lab / Micro Data Result Diagrams: 06/29/21 02:25 06/29/21 02:25 Labs: Laboratory Results - last 24 hr 06/28/21 12:00: Blood Type AB POSITIVE, Antibody Screen NEGATIVE, Crossmatch See Detail 06/28/21 12:45: Urine Color Yellow, Urine Clarity Clear, Urine pH 6.0, Ur Specific [place] 1.010, Urine Protein Negative, Urine Glucose (UA) Normal, Urine Ketones Negative, Urine Occult Blood Negative, Urine Nitrite Negative, Urine Bilirubin Negative, Urine Urobilinogen Normal, Ur Leukocyte Esterase Negative, Urine RBC 0 SEEN, Urine WBC 0 SEEN, Ur Squamous Epith Cells 0 SEEN, Urine Bacteria 0 SEEN, Urine Mucus 0 SEEN 06/28/21 15:40: Lactic Acid 2.2 H* 06/29/21 02:25: WBC 5.5, RBC 2.57 L, Hgb 7.5 L, Hct 22.4 L, MCV 87.2, MCH 29.2, MCHC 33.5 D, RDW Std Deviation 49.5 H, RDW Coeff of Anuradha 15.6 H, Plt Count 220, MPV 10.0, Immature Gran % (Auto) 0.400, Neut % (Auto) 70.7 H, Lymph % (Auto) 15.9 L, [place] % (Auto) 8.3, Eos % (Auto) 3.8, Baso % (Auto) 0.9, Absolute Neuts (auto) 3.9, Absolute Lymphs (auto) 0.88, Nucleated RBC % 0 06/29/21 02:25: Sodium 138, Potassium 3.3 L, Chloride 95 L, Carbon Dioxide 31.0, Anion Gap 12, BUN 142 H*, Creatinine 3.00 H, Estim Creat Clear Calc 17.75, Est GFR (MDRD) Af Amer 26 L, Est GFR (MDRD) Non-Af 21 L, BUN/Creatinine Ratio 47.3 H, Glucose 118 H, Calcium 8.9, Magnesium 2.3, Total Bilirubin 1.00, AST 30, ALT 22, Alkaline Phosphatase 82, Total Protein 6.6, Albumin 2.8 L, Globulin 3.8, Albumin/Globulin Ratio 0.7 L 06/29/21 02:25: PT 15.9 H, INR 1.3, APTT 40.9 H Micro: Microbiology 06/28/21 10:15 Stool Stool Occult Blood (BRAD) - Final Occult Blood Positive Physical Exam Const alert, oriented x3 and no apparent distress HEENT head/scalp atraumatic and moist oral mucous membranes Head and Scalp: normocephalic Eyes PERRL, EOMs intact bilaterally and conjunctivae normal Neck no lymphadenopathy, supple and no JVD Resp normal respiratory effort, no retractions, no use of accessory muscles and clear to auscultation bilaterally Cardio regular rate, regular rhythm, no murmurs and no JVD GI normal to inspection, nondistended, normoactive bowel sounds, soft to palpation and non-tender Extremity normal to inspection, full ROM and no clubbing, cyanosis or edema Skin no rashes or lesions noted, no wounds, skin turgor normal and no jaundice Neuro CN's II-XII intact bilaterally Psych affect normal Assessment & Plan Assessment/Plan (1) Acute GI bleeding: (2) Anemia due to acute blood loss: (3) Hypokalemia: PLAN: Day 1 Discharge planning: To be determined 1) acute blood loss anemia secondary to GI bleed Patient was transfused 3 units of blood on admission where hemoglobin was found to be 4.2. Currently 7.5 this morning. Suspect source of bleeding is an upper GI bleed that is somewhat chronic in nature, given patient's report of chronic dark stools as well as ingestion of NSAIDs. Patient is also chronically anticoagulated on Eliquis due to prior PE. GI consulted and will perform EGD later on today and assess for peptic ulcer disease, AVM or telangiectasias. We will continue to monitor patient's hemoglobin and continue PPI infusion. 2) hypokalemia Currently 3.3, magnesium within normal limits, will continue to replace potassium daily. Continue to monitor BMP. 3) HFrEF Not in acute exacerbation. It was noted on admission that patient had an EF of 15%. Patient's rehabilitation services counselor, Dr. Roth, was contacted by admitting physician who cleared patient for endoscopy. Continue metoprolol. 4) acute on chronic kidney disease stage IV Currently 3.0, was 3.56 on admission. Given patient's history of heart failure we will not administer fluids at this time, continue to monitor. 5) history of PE Hold home Eliquis due to #1. DVT prophylaxis - not indicated Patient seen by Adam Nicholas PA-C, under the supervision of Dr. Sterling. Documented by User: Dr. Harvinder Sterling, 06/29/21 14:06 Subjective Subjective Feels better overall after transfusions. No shortness of breath. Objective Data Lab / Micro Data Result Diagrams: 06/29/21 02:25 06/29/21 02:25 Physical Exam Const alert and no apparent distress HEENT head/scalp atraumatic Head and Scalp: normocephalic Resp normal respiratory effort, no retractions, no use of accessory muscles and clear to auscultation bilaterally Cardio regular rate, regular rhythm, S1 normal heart sound and S2 normal heart sound GI normal to inspection, nondistended, normoactive bowel sounds, soft to palpation, non-tender and non-distended Extremity normal to inspection Assessment & Plan Assessment/Plan (1) Acute GI bleeding: (2) Acute blood loss anemia: PLAN: Patient seen and examined independently. Data and vitals reviewed. I agree with the above note by the physician occupational therapy assistant. 1. Acute blood loss anemia improved after 3 units Secondary to GI bleed Suspect is probably been chronic but cannot do to pinpoint where the patient became symptomatic with his dizziness Patient has been noticing dark stool over months and has been taking NSAIDs as well. Patient ordered 4 units in the emergency room. Hemoccult only advised 3 units be administered at this time. 2. GI bleed Etiology unclear at this time but could include PUD versus AVM versus other Complicated by the patient's use of apixaban but also NSAIDs GI on consultation PPI gtt endoscopy pending. 3. Hypokalemia Replace Check magnesium 4. Heart failure with reduced ejection fraction Discussed with the patient's rehabilitation services counselor, Dr. Roth, who states patient has an EF of 15% Avoid excess fluids at this time. Patient may need additional diuretics with IV fluids Discussed with his rehabilitation services counselor, Dr. Roth, and his rehabilitation services counselor is okay with the undergoing endoscopy if indicated. 5. Acute on Chronic kidney disease stage IV Creatinine was 2.86 back on June 22 up to 3.56 on admission Hold diuretics Patient will be receiving blood cells so we will monitor. Hold off on additional IV fluids given the patient's history of heart failure 6. History of PE On apixaban which is obviously being held Check records from [facility] 7. VTE prophylaxis: SCDs. Chemical prophylaxis contraindicated in light of the anemia and GI bleed 8. CODE STATUS: Addressed with the patient. Patient is full CODE STATUS 9. Code vaccination status: Patient has been vaccinated for COVID-19. He has received his influenza vaccine recently as well but has yet to receive his booster. Charges/Coding Visit Charges Inpatient E&M: 14713 Subs Hosp L2
--- NOTE | 2021-06-29 13:11 | CASEMGMT ---
Green sheet on chart for [facility]. [place] RN CM
[2021-06-29] MEDS: Lactated Ringers 1,000 ML 15 ML IV (18:22)
--- NOTE | 2021-06-29 19:37 | OP.EGD_ITS ---
Patient Name: Jacques Nascimento Procedure Date: 06/29/2021 6:49 PM Date of : 1940 Age: 81 Procedure: Upper GI endoscopy Indications: Acute post hemorrhagic anemia, Iron deficiency anemia Providers: Saud Merida DO Medicines: See the Anesthesia note for documentation of the administered medications Complications: No immediate complications. Procedure: Pre-Anesthesia Assessment: - Prior to the procedure, a History and Physical was performed, and patient medications and allergies were reviewed. The patient is competent. The risks and benefits of the procedure and the sedation options and risks were discussed with the patient. All questions were answered and informed consent was obtained. Patient identification and proposed procedure were verified by the physician in the pre-procedure area. Mental Status Examination: alert and oriented. Airway Examination: normal oropharyngeal airway and neck mobility. Respiratory Examination: clear to auscultation. CV Examination: normal. Prophylactic Antibiotics: The patient does not require prophylactic antibiotics. Prior Anticoagulants: The patient has taken no previous anticoagulant or antiplatelet agents. After reviewing the risks and benefits, the patient was deemed in satisfactory condition to undergo the procedure. The anesthesia plan was to use moderate sedation / analgesia (conscious sedation). Immediately prior to administration of medications, the patient was re-assessed for adequacy to receive sedatives. The heart rate, respiratory rate, oxygen saturations, blood pressure, adequacy of pulmonary ventilation, and response to care were monitored throughout the procedure. The physical status of the patient was re-assessed after the procedure. After obtaining informed consent, the endoscope was passed under direct vision. Throughout the procedure, the patient's blood pressure, pulse, and oxygen saturations were monitored continuously. The Endoscope was introduced through the mouth, and advanced to the second part of duodenum. The upper GI endoscopy was accomplished without difficulty. The patient tolerated the procedure well. Moderate Sedation: Moderate (conscious) sedation was personally administered by an anesthesia professional. The following parameters were monitored: oxygen saturation, heart rate, blood pressure, respiratory rate, EKG, adequacy of pulmonary ventilation, and response to care. Total physician intraservice time was 15 minutes. Scope In: 7:13:51 PM Scope Out: 7:30:22 PM Total Procedure Duration Time 0 hours 16 minutes 31 seconds Findings: The examined esophagus was normal. A large hiatal hernia was present. Diffuse severe inflammation with hemorrhage characterized by erosions, erythema, friability, granularity, linear erosions and deep ulcerations was found in the entire examined stomach. Multiple 5 mm angiodysplastic lesions with bleeding were found in the second portion of the duodenum. Coagulation for hemostasis using argon beam at 0.3 liters/minute and 20 garcias was successful. To stop active bleeding, five hemostatic clips were successfully placed. There was no bleeding at the end of the procedure. Impression: - Normal esophagus. - Large hiatal hernia. - Mucosal changes suspicious for gastritis with hemorrhage. 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 Treated with argon beam coagulation. Clips were placed. - No specimens collected. Recommendation: - Return patient to [facility] for ongoing care. - NPO today. - Administer an IV bolus of 50 micrograms of octreotide followed by an infusion of 50 micrograms per hour today. - Give Protonix (pantoprazole): initiate therapy with 80 mg IV bolus, then 8 mg/hr IV by continuous infusion today. - The patient has taken no previous anticoagulant or antiplatelet agents. Procedure Code(s): --- Professional --- 47841, Esophagogastroduodenoscopy, flexible, transoral; with control of bleeding, any method CPT copyright 2017 [employer]. All rights reserved. The codes documented in this report are preliminary and upon cloth sander review may be revised to meet current compliance requirements. Saud Merida DO 06/29/2021 7:37:18 PM This report has been signed electronically. Number of Addenda: 1 Note Initiated On: 06/29/2021 6:49 PM Addendum Number: 1 Addendum Date: 03/27/2022 7:06:57 AM MAC was used instead of moderate sedation for the patient. Saud Merida DO 03/27/2022 7:07:03 AM This report has been signed electronically.
--- NOTE | 2021-06-29 19:38 | OP.CCLET_ITS ---
03/27/2022 Joseph Durand MD [address] [place] [address] Re : Upper GI endoscopy procedure for Jacques Nascimento Dear Dr. Durand This procedure was performed on Tuesday, June 29, 2021. My impressions and recommendations are as follows: Impressions : - Normal esophagus. - Large hiatal hernia. - Mucosal changes suspicious for gastritis with hemorrhage. 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 Treated with argon beam coagulation. Clips were placed. - No specimens collected. Recommendations : - Return patient to [facility] for ongoing care. - NPO today. - Administer an IV bolus of 50 micrograms of octreotide followed by an infusion of 50 micrograms per hour today. - Give Protonix (pantoprazole): initiate therapy with 80 mg IV bolus, then 8 mg/hr IV by continuous infusion today. - The patient has taken no previous anticoagulant or antiplatelet agents. My findings are described in the full procedure note, which is enclosed. If I can be of further assistance, please feel free to contact me at . Sincerely, Saud Merida, 06/29/2021 7:37:18 PM This report has been signed electronically.
[2021-06-29] MEDS: Sucralfate 1 GM Tablet PO (20:25)
[2021-06-30] VITALS (11 sets, daily range): BP systolic 95–126; BP diastolic 53–61; PULSE 59–78; RESP 14–18; TEMP 36.6–36.9; O2SAT 98–100
[2021-06-30 06:05] LABS: Absolute Lymphocyte Count 0.77 X10^3/uL (0.83-4.51); Basophil# 0.05 X10^3/uL; Basophil% 0.7 % (0-1); Eosinophil# 0.16 X10^3/uL; Eosinophils% 2.1 % (0-5); Hematocrit 23.8 % (40-54); Hemoglobin 7.7 g/dL (13.0-16.5); Lymphocyte # 0.77 X10^3/ul (0.83-4.51); Lymphocyte % 10.1 % (19-41); Mean Corp Hgb Conc 32.4 g/dL (32-36); Mean Corpuscular Hgb 28.8 pg (27.0-32.0); Mean Corpuscular Volume 89.1 fL (80-94); Mean Platelet Vol. 9.9 fl (6.2-12.0); Monocyte# 0.61 X10^3/uL; NRBC Flagged by Analyzer 0 % (0-5); Neutrophil # 6.04 X10^3/uL (2.7-7.7); Neutrophil % 78.8 % (47-70); Platelet Count 233 K/mm3 (150-450); RBC Distribution Width CV 16.4 % (11.6-14.6); RBC Distribution Width SD 53.8 fl (35.1-43.9); Red Blood Count 2.67 M/mm3 (4.6-6.2); White Blood Count 7.7 K/mm3 (4.4-11.0)
[2021-06-30] MEDS: Sucralfate 1 GM Tablet PO ×4 (06:19→23:00)
[2021-06-30] MEDS: Levothyroxine 75 MCG Tablet PO (06:19)
[2021-06-30] MEDS: 0.9% Saline Lock 10 ML Syringe IV (06:19)
[2021-06-30 06:44] LABS: Anion Gap 8 (5-15); BUN 131 mg/dL (7-18); BUN/Creat Ratio 47.3 RATIO (10-20); Calcium,Total 9.3 mg/dL (8.5-10.1); Chloride 96 mmol/L (98-107); Creatinine, Serum 2.77 mg/dL (0.70-1.30); EST Glomerular Filtration Rate 24 mL/min (>60); Est Glom Filt Rate - Afr Amer 28 mL/min (>60); Estimated Creatinine Clearance 19.22 ml/min; Glucose 191 mg/dL (74-106); Potassium 3.3 mmol/L (3.5-5.1); Sodium Level 136 mmol/L (136-145)
[2021-06-30] MEDS: Acetaminophen 325 MG Tablet 650 MG PO (08:12)
[2021-06-30] MEDS: Multivitamins,Ther W-Minerals Tablet 1 TABLET PO (08:12)
[2021-06-30] MEDS: Gabapentin 600 MG Tablet PO ×2 (08:13→23:00)
[2021-06-30] MEDS: Tamsulosin HCl 0.4 MG Capsule PO (08:13)
[2021-06-30] MEDS: Sertraline 50 MG Tablet 25 MG PO (08:14)
[2021-06-30] MEDS: Metoprolol(XL)Succ 100 MG Tablet PO (08:15)
[2021-06-30] MEDS: Potassium Chloride Oral Tablet 20 MEQ PO ×2 (08:16→16:40)
--- NOTE | 2021-06-30 10:22 | EX.PCM.PN.GI ---
Subjective Subjective Patient is status post EGD for an upper GI bleed. He had no signs of bleeding overnight. He has been maintained on octreotide and PPI drip overnight. Objective Data Objective Data Vital Signs: Vital Signs Temp Pulse Resp BP Pulse Ox 98.1 F 73 14 115/55 L 100 06/30/21 02:55 06/30/21 08:15 06/30/21 02:55 06/30/21 08:15 06/30/21 02:55 Oxygen Flow Rate (L/min) 2 Oxygen Delivery Method Room Air Weight: 147 lb 4.301 oz Body Mass Index (BMI) 23.1 Intake & Output: Intake and Output for Last 24 Hours 06/28/21 06/29/21 06/30/21 23:59 23:59 23:59 Intake Total 1191 / 1191 100 / 100 Output Total 950 / 950 1400 / 1400 400 / 400 Balance 1065.00 / 1065.00 -209 / -209 -300 / -300 Lab / Micro Data Result Diagrams: 06/30/21 05:56 06/30/21 05:56 Labs: Laboratory Results - last 24 hr 06/30/21 05:56: WBC 7.7, RBC 2.67 L, Hgb 7.7 L, Hct 23.8 L, MCV 89.1, MCH 28.8, MCHC 32.4, RDW Std Deviation 53.8 H, RDW Coeff of Anuradha 16.4 H, Plt Count 233, MPV 9.9, Immature Gran % (Auto) 0.300, Neut % (Auto) 78.8 H, Lymph % (Auto) 10.1 L, [place] % (Auto) 8.0, Eos % (Auto) 2.1, Baso % (Auto) 0.7, Absolute Neuts (auto) 6.0, Absolute Lymphs (auto) 0.77 L, Nucleated RBC % 0 06/30/21 05:56: Sodium 136, Potassium 3.3 L, Chloride 96 L, Carbon Dioxide 32.0, Anion Gap 8, BUN 131 H*, Creatinine 2.77 H, Estim Creat Clear Calc 19.22, Est GFR (MDRD) Af Amer 28 L, Est GFR (MDRD) Non-Af 24 L, BUN/Creatinine Ratio 47.3 H, Glucose 191 H, Calcium 9.3 Micro: Microbiology 06/28/21 10:15 Stool Stool Occult Blood (BRAD) - Final Occult Blood Positive Physical Exam Const alert General Appearance: cooperative Orientation / Consciousness: oriented to person HEENT hearing grossly normal bilaterally Head and Scalp: normal to inspection Face and Sinus: face symmetric Nose: external nose normal Mouth: oral and palatal mucosa normal Eyes conjunctivae normal General Eye: normal appearance of both eyes Neck full ROM General: normal visual inspection Lymph Lymphatic: no lymphadenopathy noted Chest inspection of chest normal and palpation of chest normal Chest: symmetrical chest wall rise Resp normal respiratory effort Effort and Inspection: able to speak in complete sentences Cardio regular rate GI non-distended Percussion: normal to percussion Rectal Exam: deferred Neuro Speech: speech normal Assessment & Plan Assessment/Plan (1) Acute blood loss anemia: PLAN: 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 We will continue to hold anticoagulation for the next 2 weeks. (2) Hiatal hernia: PLAN: He is not a candidate for any surgical intervention even though his hiatal hernia is contributing to some blood loss anemia secondary to Stevan's erosions. This may be able to be treated as an outpatient. (3) Acute GI bleeding: PLAN: He will need to be on PPI drip and octreotide for the next 24 hours. Charges/Coding Visit Charges Inpatient E&M: 84878 Subs Hosp L2
--- NOTE | 2021-06-30 11:01 | PCM.PN.HOSP ---
Documented by User: Adam FORMAN 06/30/21 11:19 Subjective Subjective Patient is a 81-year-old male comfortably resting in a chair, alert and orient x3. Patient reports significant improvement in his weakness/fatigue admission, reports being hungry as he is only on a clear liquid diet currently. Denies development of any new symptoms overnight. Does not appear in acute distress. Objective Data Objective Data Vital Signs: Vital Signs Temp Pulse Resp BP Pulse Ox 98.1 F 73 14 115/55 L 100 06/30/21 02:55 06/30/21 08:15 06/30/21 02:55 06/30/21 08:15 06/30/21 02:55 Oxygen Flow Rate (L/min) 2 Oxygen Delivery Method Room Air Weight: 147 lb 4.301 oz Body Mass Index (BMI) 23.1 Intake & Output: Intake and Output for Last 24 Hours 06/28/21 06/29/21 06/30/21 23:59 23:59 23:59 Intake Total 1191 / 1191 100 / 100 Output Total 950 / 950 1400 / 1400 400 / 400 Balance 1065.00 / 1065.00 -209 / -209 -300 / -300 Lab / Micro Data Result Diagrams: 06/30/21 05:56 06/30/21 05:56 Labs: Laboratory Results - last 24 hr 06/30/21 05:56: WBC 7.7, RBC 2.67 L, Hgb 7.7 L, Hct 23.8 L, MCV 89.1, MCH 28.8, MCHC 32.4, RDW Std Deviation 53.8 H, RDW Coeff of Anuradha 16.4 H, Plt Count 233, MPV 9.9, Immature Gran % (Auto) 0.300, Neut % (Auto) 78.8 H, Lymph % (Auto) 10.1 L, [place] % (Auto) 8.0, Eos % (Auto) 2.1, Baso % (Auto) 0.7, Absolute Neuts (auto) 6.0, Absolute Lymphs (auto) 0.77 L, Nucleated RBC % 0 06/30/21 05:56: Sodium 136, Potassium 3.3 L, Chloride 96 L, Carbon Dioxide 32.0, Anion Gap 8, BUN 131 H*, Creatinine 2.77 H, Estim Creat Clear Calc 19.22, Est GFR (MDRD) Af Amer 28 L, Est GFR (MDRD) Non-Af 24 L, BUN/Creatinine Ratio 47.3 H, Glucose 191 H, Calcium 9.3 Micro: Microbiology 06/28/21 10:15 Stool Stool Occult Blood (BRAD) - Final Occult Blood Positive Physical Exam Const alert, oriented x3 and no apparent distress HEENT head/scalp atraumatic and moist oral mucous membranes Head and Scalp: normocephalic Eyes PERRL, EOMs intact bilaterally and conjunctivae normal Neck no lymphadenopathy, supple and no JVD Resp normal respiratory effort, no retractions, no use of accessory muscles and clear to auscultation bilaterally Cardio regular rate, regular rhythm, no murmurs and no JVD GI normal to inspection, nondistended, normoactive bowel sounds, soft to palpation and non-tender Extremity normal to inspection, full ROM and no clubbing, cyanosis or edema Skin no rashes or lesions noted, no wounds, skin turgor normal and no jaundice Neuro CN's II-XII intact bilaterally Psych affect normal Assessment & Plan Assessment/Plan (1) Acute GI bleeding: (2) Anemia due to acute blood loss: (3) Hypokalemia: PLAN: Day 2 Discharge planning: To be determined 1) acute blood loss anemia secondary to GI bleed Hemoglobin stable at 7.7, after transfusion of 3 units of PRBCs on 06/28/2021. Evaluated by EGD yesterday which demonstrated a large hiatal hernia, mucosal changes suggestive of gastritis with hemorrhage, multiple bleeding lesions in the duodenum that were subsequently clipped and treated with argon plasma. Recommendations from GI are as follows: Continue PPI and octreotide for the next 24 hours, hold anticoagulation for the next 2 weeks. 2) hypokalemia Currently 3.3, magnesium within normal limits, will continue to replace potassium daily. Continue to monitor BMP. 3) HFrEF Not in acute exacerbation. It was noted on admission that patient had an EF of 15%. Patient's cat wagon operator, Dr. Roth, was contacted by admitting physician who cleared patient for endoscopy. Continue metoprolol. 4) acute on chronic kidney disease stage IV Currently 2.77, was 3.56 on admission. Given patient's history of heart failure we will not administer fluids at this time, continue to monitor. 5) history of PE Hold home Eliquis due to #1. DVT prophylaxis - not indicated Patient seen by Adam Nicholas PA-C, under the supervision of Dr. Sterling. Documented by User: Dr. Harvinder Sterling, DO 06/30/21 14:35 Subjective Subjective Feels well. Breathing well. Objective Data Lab / Micro Data Result Diagrams: 06/30/21 05:56 06/30/21 05:56 Physical Exam Const alert and no apparent distress Resp normal respiratory effort, no retractions and no use of accessory muscles Cardio regular rate, regular rhythm, S1 normal heart sound and S2 normal heart sound GI normal to inspection, nondistended, normoactive bowel sounds, soft to palpation, non-tender and non-distended Extremity normal to inspection Assessment & Plan Assessment/Plan (1) Acute GI bleeding: (2) Acute blood loss anemia: PLAN: Patient seen and examined independently. Data and vitals reviewed. I agree with the above note by the physician assisted living assistant. 1. Acute blood loss anemia improved after 3 units Secondary to GI bleed Suspect is probably been chronic but cannot do to pinpoint where the patient became symptomatic with his dizziness Patient has been noticing dark stool over months and has been taking NSAIDs as well. Patient ordered 4 units in the emergency room. Hemoccult only advised 3 units be administered at this time. 2. 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 S/P treatment w thermal therapy and clipping. LUIS Merida, no anticoagulation for 2 weeks. No further NSAIDs. Continue pantoprazole gtt 3. Hypokalemia Replace Check magnesium 4. Heart failure with reduced ejection fraction Discussed with the patient's cat wagon operator, Dr. Roth, who states patient has an EF of 15% Avoid excess fluids at this time. Patient may need additional diuretics with IV fluids Discussed with his cat wagon operator, Dr. Roth, and his cat wagon operator is okay with the undergoing endoscopy if indicated. 5. Acute on Chronic kidney disease stage IV Improving Creatinine was 2.86 back on June 22 up to 3.56 on admission Hold diuretics 6. History of PE apixaban on hold for 2 weeks (assuming no further bleeding) 7. VTE prophylaxis: SCDs. Chemical prophylaxis contraindicated in light of the anemia and GI bleed 8. CODE STATUS: Addressed with the patient. Patient is full CODE STATUS 9. Code vaccination status: Patient has been vaccinated for COVID-19. He has received his influenza vaccine recently as well but has yet to receive his booster. Charges/Coding Visit Charges Inpatient E&M: 79680 Subs Hosp L2
--- NOTE | 2021-06-30 17:25 | NURSING ---
MESSAGE WAS PASSED ON FROM IMPREGNATOR CHARGE NURSE THAT WAS TO HAVE PACER CHECK TODAY. CHARGE NURSE TODAY TRIED TO USE [facility] MACHINE TO CHECK IT & IT WOULD NOT CONNECT. THIS NURSE SPOKE TO Shamika CAPPS REGARDING SAME. EXPLAINED TO THAT THIS WAS VERBALLY PASSED ON BUT THERE WAS NO ACTUAL ORDER IN THE COMPUTER. STATES HE HADN'T BEEN TOLD ANY OF THIS & HE ALSO SPOKE TO DR HINDS ABOUT SAME. STATES PACER CHECK NOT NECESSARY.
[2021-07-01] VITALS (12 sets, daily range): BP systolic 95–122; BP diastolic 52–60; PULSE 58–65; RESP 18–20; TEMP 36.1–36.7; O2SAT 97–100
[2021-07-01 05:56] LABS: Absolute Lymphocyte Count 0.85 X10^3/uL (0.83-4.51); Absolute Neutrophil Count 2.3 X10^3/uL (2.0-7.7); Basophil# 0.03 X10^3/uL; Basophil% 0.7 % (0-1); Eosinophil# 0.37 X10^3/uL; Eosinophils% 9.2 % (0-5); Hematocrit 22.1 % (40-54); Hemoglobin 7.2 g/dL (13.0-16.5); Lymphocyte # 0.85 X10^3/ul (0.83-4.51); Mean Corp Hgb Conc 32.6 g/dL (32-36); Mean Corpuscular Hgb 29.3 pg (27.0-32.0); Mean Corpuscular Volume 89.8 fL (80-94); Monocyte# 0.46 X10^3/uL; Monocyte% 11.4 % (0-10); NRBC Flagged by Analyzer 0 % (0-5); Neutrophil # 2.31 X10^3/uL (2.7-7.7); Neutrophil % 57.2 % (47-70); Platelet Count 207 K/mm3 (150-450); RBC Distribution Width CV 16.2 % (11.6-14.6); RBC Distribution Width SD 53.3 fl (35.1-43.9); Red Blood Count 2.46 M/mm3 (4.6-6.2)
[2021-07-01 06:30] LABS: Anion Gap 10 (5-15); BUN 114 mg/dL (7-18); Calcium,Total 8.5 mg/dL (8.5-10.1); Chloride 94 mmol/L (98-107); Creatinine, Serum 2.59 mg/dL (0.70-1.30); EST Glomerular Filtration Rate 25 mL/min (>60); Est Glom Filt Rate - Afr Amer 31 mL/min (>60); Estimated Creatinine Clearance 20.56 ml/min; Glucose 137 mg/dL (74-106); Potassium 3.5 mmol/L (3.5-5.1); Sodium Level 135 mmol/L (136-145)
[2021-07-01] MEDS: Sucralfate 1 GM Tablet PO ×3 (06:45→16:48)
[2021-07-01] MEDS: Levothyroxine 75 MCG Tablet PO (06:45)
[2021-07-01] MEDS: Potassium Chloride Oral Tablet 20 MEQ PO ×2 (08:37→16:48)
[2021-07-01] MEDS: Multivitamins,Ther W-Minerals Tablet 1 TABLET PO (08:37)
--- NOTE | 2021-07-01 10:56 | PN.HOSP_ITS ---
Documented by User: Adam FORMAN 07/01/21 11:08 Subjective Subjective Patient is an 81-year-old male comfortably resting in a chair, alert and orient x3. Patient reports significant improvement in dizziness and lightheadedness from mission. Denies development of any new symptoms overnight. Does not appear in acute distress. Objective Data Objective Data Vital Signs: Vital Signs Temp Pulse Resp BP Pulse Ox 98 F 60 20 H 122/56 H 100 07/01/21 08:40 07/01/21 08:40 07/01/21 08:40 07/01/21 08:40 07/01/21 08:40 Oxygen Flow Rate (L/min) 2 Oxygen Delivery Method Room Air Weight: 147 lb 4.301 oz Body Mass Index (BMI) 23.1 Intake & Output: Intake and Output for Last 24 Hours 06/29/21 06/30/21 07/01/21 23:59 23:59 23:59 Intake Total 1191 / 1191 2227.67 / 2227.67 100 / 100 Output Total 1400 / 1400 400 / 700 400 / 400 Balance -209 / -209 1827.67 / 1527.67 -300 / -300 Lab / Micro Data Result Diagrams: 07/01/21 05:34 07/01/21 05:34 Labs: Laboratory Results - last 24 hr 06/28/21 12:00: Crossmatch See Detail 07/01/21 05:34: WBC 4.0 L, RBC 2.46 L, Hgb 7.2 L, Hct 22.1 L, MCV 89.8, MCH 29.3, MCHC 32.6, RDW Std Deviation 53.3 H, RDW Coeff of Anuradha 16.2 H, Plt Count 207, MPV 10.0, Immature Gran % (Auto) 0.500, Neut % (Auto) 57.2, Lymph % (Auto) 21.0, [place] % (Auto) 11.4 H, Eos % (Auto) 9.2 H, Baso % (Auto) 0.7, Absolute Neuts (auto) 2.3, Absolute Lymphs (auto) 0.85, Nucleated RBC % 0 07/01/21 05:34: Sodium 135 L, Potassium 3.5, Chloride 94 L, Carbon Dioxide 31.0, Anion Gap 10, BUN 114 H*, Creatinine 2.59 H, Estim Creat Clear Calc 20.56, Est GFR (MDRD) Af Amer 31 L, Est GFR (MDRD) Non-Af 25 L, BUN/Creatinine Ratio 44.0 H , Glucose 137 H, Calcium 8.5 Micro: Microbiology 06/28/21 10:15 Stool Stool Occult Blood (BRAD) - Final Occult Blood Positive Physical Exam Const alert, oriented x3 and no apparent distress HEENT head/scalp atraumatic and moist oral mucous membranes Head and Scalp: normocephalic Eyes PERRL, EOMs intact bilaterally and conjunctivae normal Neck no lymphadenopathy, supple and no JVD Resp normal respiratory effort, no retractions, no use of accessory muscles and clear to auscultation bilaterally Cardio regular rate, regular rhythm, no murmurs and no JVD GI normal to inspection, nondistended, normoactive bowel sounds, soft to palpation and non-tender Extremity normal to inspection, full ROM and no clubbing, cyanosis or edema Skin no rashes or lesions noted, no wounds and skin turgor normal Neuro CN's II-XII intact bilaterally Psych affect normal Assessment & Plan Assessment/Plan (1) Acute GI bleeding: (2) Acute blood loss anemia: (3) Hypokalemia: PLAN: Day 3 Discharge planning: Current plan is for home with home health care. 1) acute blood loss anemia secondary to GI bleed Hemoglobin currently 7.2, after transfusion of 3 units of PRBCs on 06/28/2021. Evaluated by EGD yesterday which demonstrated a large hiatal hernia, mucosal changes suggestive of gastritis with hemorrhage, multiple bleeding lesions in the duodenum that were subsequently clipped and treated with argon plasma. Recommendations from GI are as follows: Continue PPI and octreotide, hold anticoagulation for the next 2 weeks, iron supplementation initiated, diet advanced to cardiac diet as tolerated. 2) hypokalemia Currently 3.5, magnesium within normal limits, will continue to replace potassium daily. Continue to monitor BMP. 3) HFrEF Not in acute exacerbation. It was noted on admission that patient had an EF of 15%. Patient's manager of care, Dr. Roth, was contacted by admitting physician who cleared patient for endoscopy. Continue metoprolol. 4) acute on chronic kidney disease stage IV Currently 2.59, was 3.56 on admission. Given patient's history of heart failure we will not administer fluids at this time, continue to monitor. 5) history of PE Hold home Eliquis due to #1. DVT prophylaxis - not indicated Patient seen by Adam Nicholas PA-C, under the supervision of Dr. Sterling. Documented by User: Dr. Harvinder Sterling, DO 07/01/21 16:51 Subjective Subjective Feeling well. Tolerating diet. Objective Data Lab / Micro Data Result Diagrams: 07/01/21 05:34 07/01/21 05:34 Physical Exam Resp normal respiratory effort, no retractions, no use of accessory muscles and clear to auscultation bilaterally Cardio regular rate, regular rhythm, S1 normal heart sound and S2 normal heart sound GI normal to inspection, nondistended, normoactive bowel sounds, soft to palpation, non-tender and non-distended Assessment & Plan Assessment/Plan (1) Acute GI bleeding: (2) Acute blood loss anemia: PLAN: Patient seen and examined independently. Data and vitals reviewed. I agree with the above note by the physician talent assistant. 1. Acute blood loss anemia improved after 3 units Secondary to GI bleed Suspect is probably been chronic but cannot do to pinpoint where the patient became symptomatic with his dizziness Patient has been noticing dark stool over months and has been taking NSAIDs as well. 2. 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 S/P treatment w thermal therapy and clipping. LUIS Merida, no anticoagulation for 2 weeks. No further NSAIDs. Continue pantoprazole gtt 3. Hypokalemia Replace Check magnesium 4. Heart failure with reduced ejection fraction Discussed with the patient's manager of care, Dr. Roth, who states patient has an EF of 15% Previously, discussed with his manager of care, Dr. Roth, and his manager of care is okay with the undergoing endoscopy if indicated. 5. Acute on Chronic kidney disease stage IV Improving Creatinine was 2.86 back on June 22 up to 3.56 on admission Hold diuretics 6. History of PE apixaban on hold for 2 weeks (assuming no further bleeding) 7. VTE prophylaxis: SCDs. Chemical prophylaxis contraindicated in light of the anemia and GI bleed 8. CODE STATUS: Addressed with the patient. Patient is full CODE STATUS 9. Code vaccination status: Patient has been vaccinated for COVID-19. He has received his influenza vaccine recently as well but has yet to receive his booster. Charges/Coding Visit Charges Inpatient E&M: 16666 Subs Hosp L2
[2021-07-01] MEDS: Tamsulosin HCl 0.4 MG Capsule PO (11:40)
[2021-07-01] MEDS: Ferrous Sulfate 325 MG Tablet PO (11:40)
[2021-07-01] MEDS: Sertraline 50 MG Tablet 25 MG PO (11:41)
[2021-07-01] MEDS: Gabapentin 600 MG Tablet PO (11:41)
[2021-07-01] MEDS: Metoprolol(XL)Succ 100 MG Tablet PO (11:42)
--- NOTE | 2021-07-01 15:45 | EX.PCM.PN.GI ---
Subjective Subjective Patient is sitting in chair without any complaints. He denies any abdominal pain. He denies any black stools. He is tolerating a diet. Objective Data Objective Data Vital Signs: Vital Signs Temp Pulse Resp BP Pulse Ox 97.0 F L 58 L 18 116/54 L 97 07/01/21 14:29 07/01/21 14:29 07/01/21 14:29 07/01/21 14:29 07/01/21 14:29 Oxygen Flow Rate (L/min) 2 Oxygen Delivery Method Room Air Weight: 147 lb 4.301 oz Body Mass Index (BMI) 23.1 Intake & Output: Intake and Output for Last 24 Hours 06/29/21 06/30/21 07/01/21 23:59 23:59 23:59 Intake Total 1191 / 1191 2227.67 / 2227.67 851 / 851 Output Total 1400 / 1400 400 / 700 400 / 400 Balance -209 / -209 1827.67 / 1527.67 451 / 451 Lab / Micro Data Result Diagrams: 07/01/21 05:34 07/01/21 05:34 Labs: Laboratory Results - last 24 hr 06/28/21 12:00: Crossmatch See Detail 07/01/21 05:34: WBC 4.0 L, RBC 2.46 L, Hgb 7.2 L, Hct 22.1 L, MCV 89.8, MCH 29.3, MCHC 32.6, RDW Std Deviation 53.3 H, RDW Coeff of Anuradha 16.2 H, Plt Count 207, MPV 10.0, Immature Gran % (Auto) 0.500, Neut % (Auto) 57.2, Lymph % (Auto) 21.0, [place] % (Auto) 11.4 H, Eos % (Auto) 9.2 H, Baso % (Auto) 0.7, Absolute Neuts (auto) 2.3, Absolute Lymphs (auto) 0.85, Nucleated RBC % 0 07/01/21 05:34: Sodium 135 L, Potassium 3.5, Chloride 94 L, Carbon Dioxide 31.0, Anion Gap 10, BUN 114 H*, Creatinine 2.59 H, Estim Creat Clear Calc 20.56, Est GFR (MDRD) Af Amer 31 L, Est GFR (MDRD) Non-Af 25 L, BUN/Creatinine Ratio 44.0 H, Glucose 137 H, Calcium 8.5 Micro: Microbiology 06/28/21 10:15 Stool Stool Occult Blood (BRAD) - Final Occult Blood Positive Physical Exam Const alert General Appearance: cooperative Orientation / Consciousness: oriented to person HEENT hearing grossly normal bilaterally Head and Scalp: normal to inspection Face and Sinus: face symmetric Nose: external nose normal Mouth: oral and palatal mucosa normal Eyes conjunctivae normal General Eye: normal appearance of both eyes Neck full ROM General: normal visual inspection Lymph Lymphatic: no lymphadenopathy noted Chest inspection of chest normal and palpation of chest normal Chest: symmetrical chest wall rise Resp normal respiratory effort Effort and Inspection: able to speak in complete sentences Cardio regular rate GI non-distended Percussion: normal to percussion Rectal Exam: deferred Neuro Speech: speech normal Gait (Neuro): normal gait Assessment & Plan Assessment/Plan (1) Hiatal hernia: PLAN: Hiatal hernia contributing to chronic blood loss anemia secondary to Stevan's erosions. I [place] start in the post office today. He will need to be given IV iron. (2) Hyperuricemia: PLAN: Hyperuricemia possibly secondary to upper GI bleed in the setting of chronic renal failure. 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 This appears to be stable. His hemoglobin is slightly down at 7.2 from 7.7. If he does drift back down below 7 he will need a blood transfusion and in the interim I would recommend iron transfusions to keep his ferritin greater than 250. Charges/Coding Visit Charges Inpatient E&M: 64698 Subs Hosp L3
--- NOTE | 2021-07-01 16:50 | PCM.DC ---
Discharge Instructions Diet Discharge Diet: No restrictions Activity Discharge Activity: Return to Normal Activity Weight Bearing Status: Weight bearing as tolerated Dressing / Incision Call your doctor if you observe: Fever of 101 or Higher, Numbness or Tingling, Shortness of breath, Dizziness, Chest pain, Increased palpitations (irregular heartbeat) and Calf discomfort Follow Up Care Please Follow Up With: Primary care provider When: Within the next two weeks. Test Results: Test results from this visit will be discussed in further detail at your follow-up appointment, if applicable. Discharge Plan Admission Admit Date/Time: 06/28/21 14:55 Attending Provider: Harvinder Sterling Primary Care Provider: Joseph Durand Instructions Additional Instructions / Restrictions: * Hold Eliquis, resume on 07/14/21. * Avoid taking any Aleve, Motrin or other NSAIDs. * Avoid initiating any Aspirin, Plavix or any new blood thinners. Discharge Orders/Prescriptions Prescriptions: New ferrous sulfate 325 mg (65 mg iron) tablet 325 mg PO DAILY Qty: 30 RF: 0 sucralfate [Carafate] 1 gram tablet 1 g PO .QID 30 Days RF: 0 Continued gabapentin 600 mg Tablet 600 mg PO BID RF: 0 metoprolol succinate 100 mg Tablet Extended Release 24 Hr 100 mg PO DAILY RF: 0 metolazone 5 mg Tablet 5 mg PO MOWEFR RF: 0 spironolactone 25 mg Tablet 25 mg PO DAILY RF: 0 levothyroxine 75 mcg Tablet 75 mcg PO DAILY RF: 0 potassium chloride 20 mEq Tablet,Er Particles/Crystals 20 meq PO BID RF: 0 torsemide 100 mg Tablet 100 mg PO BID RF: 0 tamsulosin 0.4 mg Capsule 0.4 mg PO DAILY RF: 0 pantoprazole 40 mg Tablet,Delayed Release (Dr/Ec) 40 mg PO DAILY RF: 0 sertraline 25 mg Tablet 25 mg PO DAILY RF: 0 Men's 50 Plus Multivitamin 400-20-370 mcg Tablet 1 tab PO DAILY RF: 0 B12 Active 1,000 mcg Tablet,Chewable 1,000 mcg PO DAILY RF: 0 Entresto 49-51 mg Tablet 1 tab PO BID RF: 0 Held Eliquis 2.5 mg Tablet 2.5 mg PO BID RF: 0 Hold Instructions: Resume on 07/14/21. Resume Eliquis on 07/14/21. Referrals / Follow Up: Joesph Durand MD [Primary Care Provider] - Within 2 Weeks FriendSaud DO [STAFF PHYSICIAN] - Within 2 Weeks Disposition Disposition (needs filled in before D/C Order can be placed): Home, Self Care
--- NOTE | 2021-07-01 17:08 | PCM.DC.SUM ---
Documented by User: Adam FORMAN 07/01/21 17:14 Providers Date of Admission: 06/28/21 Primary Care Physician: Dr. Joseph Durand MD Consultations 06/28/21 15:29 Consult: Gastroenterology Routine Consulting Provider: [facility] Reason for Consult: GI bleed EMERGENT Consult: No MD Notified: Yes Date Notified: 06/28/21 Time Notified: 15:03 Method of Notification: Verbal Reason For Visit: ANEMIA / GI BLEED Diagnosis Discharge Diagnosis (1) Acute GI bleeding: Status: Acute Code(s): K92.2 - Gastrointestinal hemorrhage, unspecified (2) Acute blood loss anemia: Status: Acute Code(s): D62 - Acute posthemorrhagic anemia Medications at Discharge Home Medications B12 Active 1,000 mcg PO DAILY 06/28/21 Eliquis 2.5 mg PO BID 06/28/21 Entresto 1 tab PO BID 06/28/21 Men's 50 Plus Multivitamin 1 tab PO DAILY 06/28/21 gabapentin 600 mg PO BID 06/28/21 levothyroxine 75 mcg PO DAILY 06/28/21 metolazone 5 mg PO MOWEFR 06/28/21 metoprolol succinate 100 mg PO DAILY 06/28/21 pantoprazole 40 mg PO DAILY 06/28/21 potassium chloride 20 meq PO BID 06/28/21 sertraline 25 mg PO DAILY 06/28/21 spironolactone 25 mg PO DAILY 06/28/21 tamsulosin 0.4 mg PO DAILY 06/28/21 torsemide 100 mg PO BID 06/28/21 ferrous sulfate 325 mg PO DAILY #30 tab 07/01/21 sucralfate [Carafate] 1 g PO .QID 30 Days tab 07/01/21 Hospital Course Procedures EGD Summary of Care Provided Minutes Spent on Discharge: 35 Hospital Course: Disposition: Patient is to discharge home. 1) acute blood loss anemia secondary to GI bleed Hemoglobin currently 7.2, after transfusion of 3 units of PRBCs on 06/28/2021. 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 GI is of the opinion that patient is stable at this time. Recommendations from GI are as follows: Hold anticoagulation for the next 2 weeks, initiate iron supplementation as well as Carafate 4 times daily for 1 month, avoid taking any new blood thinners, avoid any NSAIDs and follow-up with Dr. Merida within the next 2 weeks. 2) hypokalemia Resolved. 3) HFrEF Not in acute exacerbation. It was noted on admission that patient had an EF of 15%. Patient's criminology professor, Dr. Roth, was contacted by admitting physician who cleared patient for endoscopy. Continue metoprolol. 4) acute on chronic kidney disease stage IV Stable, creatinine has continued to trend down since admission. Currently 2.59, was 3.56 on admission. 5) history of PE Hold home Eliquis as above. Resume taking Eliquis on 07/14/2021. Patient seen by Adam Nicholas PA-C, under the supervision of Dr. Sterling. Physical Exam Narrative Patient is an 81-year-old male comfortably resting in a chair, alert and orient x3. Patient reports significant improvement in dizziness and lightheadedness from mission. Denies development of any new symptoms overnight. Does not appear in acute distress. Const alert, oriented x3 and no apparent distress HEENT normocephalic, head/scalp atraumatic, hearing grossly normal bilaterally and moist oral mucous membranes Eyes PERRL, EOMs intact bilaterally and conjunctivae normal Neck no lymphadenopathy, supple and no JVD Resp normal respiratory effort, no retractions, no use of accessory muscles and clear to auscultation bilaterally Cardio regular rate, regular rhythm, no murmurs and no JVD GI normal to inspection, nondistended, normoactive bowel sounds, soft to palpation and non-tender Extremity normal to inspection, full ROM and no clubbing, cyanosis or edema Skin no rashes or lesions noted, no wounds and skin turgor normal Neuro CN's II-XII intact bilaterally Psych affect normal Weight / BMI Weight Weight: 147 lb 4.301 oz Body Mass Index (BMI) 23.1 ABG / Lab / Microbiology Data Result Diagrams: 07/01/21 05:34 07/01/21 05:34 Laboratory: Laboratory Results - last 24 hr 06/28/21 12:00: Crossmatch See Detail 07/01/21 05:34: WBC 4.0 L, RBC 2.46 L, Hgb 7.2 L, Hct 22.1 L, MCV 89.8, MCH 29.3, MCHC 32.6, RDW Std Deviation 53.3 H, RDW Coeff of Anuradha 16.2 H, Plt Count 207, MPV 10.0, Immature Gran % (Auto) 0.500, Neut % (Auto) 57.2, Lymph % (Auto) 21.0, [place] % (Auto) 11.4 H, Eos % (Auto) 9.2 H, Baso % (Auto) 0.7, Absolute Neuts (auto) 2.3, Absolute Lymphs (auto) 0.85, Nucleated RBC % 0 07/01/21 05:34: Sodium 135 L, Potassium 3.5, Chloride 94 L, Carbon Dioxide 31.0, Anion Gap 10, BUN 114 H*, Creatinine 2.59 H, Estim Creat Clear Calc 20.56, Est GFR (MDRD) Af Amer 31 L, Est GFR (MDRD) Non-Af 25 L, BUN/Creatinine Ratio 44.0 H, Glucose 137 H, Calcium 8.5 Microbiology: Microbiology 06/28/21 10:15 Stool Stool Occult Blood (BRAD) - Final Occult Blood Positive D/C Instructions Discharge Diet: No restrictions Weight Bearing Status: Weight bearing as tolerated Call your doctor if you observe: Fever of 101 or Higher, Numbness or Tingling, Shortness of breath, Dizziness, Chest pain, Increased palpitations (irregular heartbeat) and Calf discomfort Please Follow Up With: Primary care provider When: Within the next two weeks. Meaningful Use Info Meaningful Use Diagnoses (Choose all that apply): None applicable Discharge Plan Admission Admit Date/Time: 06/28/21 14:55 Attending Provider: Harvinder Sterling Primary Care Provider: Joseph Durand Instructions Additional Instructions / Restrictions: * Hold Eliquis, resume on 07/14/21. * Avoid taking any Aleve, Motrin or other NSAIDs. * Avoid initiating any Aspirin, Plavix or any new blood thinners. Discharge Orders/Prescriptions Prescriptions: New ferrous sulfate 325 mg (65 mg iron) tablet 325 mg PO DAILY Qty: 30 RF: 0 sucralfate [Carafate] 1 gram tablet 1 g PO .QID 30 Days RF: 0 Continued gabapentin 600 mg Tablet 600 mg PO BID RF: 0 metoprolol succinate 100 mg Tablet Extended Release 24 Hr 100 mg PO DAILY RF: 0 metolazone 5 mg Tablet 5 mg PO MOWEFR RF: 0 spironolactone 25 mg Tablet 25 mg PO DAILY RF: 0 levothyroxine 75 mcg Tablet 75 mcg PO DAILY RF: 0 potassium chloride 20 mEq Tablet,Er Particles/Crystals 20 meq PO BID RF: 0 torsemide 100 mg Tablet 100 mg PO BID RF: 0 tamsulosin 0.4 mg Capsule 0.4 mg PO DAILY RF: 0 pantoprazole 40 mg Tablet,Delayed Release (Dr/Ec) 40 mg PO DAILY RF: 0 sertraline 25 mg Tablet 25 mg PO DAILY RF: 0 Men's 50 Plus Multivitamin 400-20-370 mcg Tablet 1 tab PO DAILY RF: 0 B12 Active 1,000 mcg Tablet,Chewable 1,000 mcg PO DAILY RF: 0 Entresto 49-51 mg Tablet 1 tab PO BID RF: 0 Held Eliquis 2.5 mg Tablet 2.5 mg PO BID RF: 0 Hold Instructions: Resume on 07/14/21. Resume Eliquis on 07/14/21. Referrals / Follow Up: Joseph Durand MD [Primary Care Provider] - Within 2 Weeks FriendSaud DO [STAFF PHYSICIAN] - Within 2 Weeks Disposition Disposition (needs filled in before D/C Order can be placed): Home, Self Care Documented by User: Dr. Harvinder Sterling DO 07/01/21 19:23 Providers Date of Admission: 06/28/21 Reason For Visit: ANEMIA / GI BLEED Medications at Discharge Home Medications B12 Active 1,000 mcg PO DAILY 06/28/21 Eliquis 2.5 mg PO BID 06/28/21 Entresto 1 tab PO BID 06/28/21 Men's 50 Plus Multivitamin 1 tab PO DAILY 06/28/21 gabapentin 600 mg PO BID 06/28/21 levothyroxine 75 mcg PO DAILY 06/28/21 metolazone 5 mg PO MOWEFR 06/28/21 metoprolol succinate 100 mg PO DAILY 06/28/21 pantoprazole 40 mg PO DAILY 06/28/21 potassium chloride 20 meq PO BID 06/28/21 sertraline 25 mg PO DAILY 06/28/21 spironolactone 25 mg PO DAILY 06/28/21 tamsulosin 0.4 mg PO DAILY 06/28/21 torsemide 100 mg PO BID 06/28/21 ferrous sulfate 325 mg PO DAILY #30 tab 07/01/21 sucralfate [Carafate] 1 g PO .QID 30 Days tab 07/01/21 Hospital Course Procedures EGD Summary of Care Provided Minutes Spent on Discharge: 35 Hospital Course: Patient seen and examined independently. Data and vitals reviewed. I agree with the above note by the physician dietetic assistant. 1. Acute blood loss anemia improved after 3 units Secondary to GI bleed Suspect is probably been chronic but cannot do to pinpoint where the patient became symptomatic with his dizziness Patient has been noticing dark stool over months and has been taking NSAIDs as well. Ferrous sulfate. 2. 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 S/P treatment w thermal therapy and clipping. DW Friend, no anticoagulation for 2 weeks. No further NSAIDs. PPI follow up with GI 3. Hypokalemia Replace Check magnesium 4. Heart failure with reduced ejection fraction Discussed with the patient's criminology professor, Dr. Roth, who states patient has an EF of 15% Previously, discussed with his criminology professor, Dr. Roth, and his criminology professor is okay with the undergoing endoscopy if indicated. 5. Acute on Chronic kidney disease stage IV Improving Creatinine was 2.86 back on June 22 up to 3.56 on admission Hold diuretics 6. History of PE apixaban on hold for 2 weeks (assuming no further bleeding) ABG / Lab / Microbiology Data Result Diagrams: 07/01/21 05:34 07/01/21 05:34 Discharge Plan Admission Admit Date/Time: 06/28/21 14:55 Attending Provider: Harvindre Sterling Primary Care Provider: Joseph Durand Instructions Additional Instructions / Restrictions: * Hold Eliquis, resume on 07/14/21. * Avoid taking any Aleve, Motrin or other NSAIDs. * Avoid initiating any Aspirin, Plavix or any new blood thinners. Discharge Orders/Prescriptions Prescriptions: New ferrous sulfate 325 mg (65 mg iron) tablet 325 mg PO DAILY Qty: 30 RF: 0 sucralfate [Carafate] 1 gram tablet 1 g PO .QID 30 Days RF: 0 Continued gabapentin 600 mg Tablet 600 mg PO BID RF: 0 metoprolol succinate 100 mg Tablet Extended Release 24 Hr 100 mg PO DAILY RF: 0 metolazone 5 mg Tablet 5 mg PO MOWEFR RF: 0 spironolactone 25 mg Tablet 25 mg PO DAILY RF: 0 levothyroxine 75 mcg Tablet 75 mcg PO DAILY RF: 0 potassium chloride 20 mEq Tablet,Er Particles/Crystals 20 meq PO BID RF: 0 torsemide 100 mg Tablet 100 mg PO BID RF: 0 tamsulosin 0.4 mg Capsule 0.4 mg PO DAILY RF: 0 pantoprazole 40 mg Tablet,Delayed Release (Dr/Ec) 40 mg PO DAILY RF: 0 sertraline 25 mg Tablet 25 mg PO DAILY RF: 0 Men's 50 Plus Multivitamin 400-20-370 mcg Tablet 1 tab PO DAILY RF: 0 B12 Active 1,000 mcg Tablet,Chewable 1,000 mcg PO DAILY RF: 0 Entresto 49-51 mg Tablet 1 tab PO BID RF: 0 Held Eliquis 2.5 mg Tablet 2.5 mg PO BID RF: 0 Hold Instructions: Resume on 07/14/21. Resume Eliquis on 07/14/21. Referrals / Follow Up: Joseph Durand MD [Primary Care Provider] - Within 2 Weeks Saud Merida DO [STAFF PHYSICIAN] - Within 2 Weeks Disposition Disposition (needs filled in before D/C Order can be placed): Home, Self Care Charges/Coding Visit Charges Inpatient E&M: 17394 Disch Hosp
[2021-07-01] MEDS: miSOPROStol 200 MCG Tablet PO (19:11)
[2021-07-02 10:31] LABS: Pathologist Review Reviewed
== END 2021-07-01 19:29 | disposition home or self-care (01) | DRG 378 ==
LOC: ED 11:59 → PCU 15:20
PROVIDERS: Anesthesiology; Internal Medicine Gastroenterology; Physician Assistant; Emergency Provider Emergency Medicine; PCP Family Medicine
PROC: 0DJ08ZZ Inspection of Upper Intestinal Tract, Via Natural or Artificial Opening Endoscopic (ICD-10-PCS; CPT 43235; principal; 2021-06-29 13:40)
DX: K31.811 Angiodysplasia of stomach and duodenum with bleeding (principal); D62 Acute posthemorrhagic anemia; N18.4 Chronic kidney disease, stage 4 (severe); I50.20 Unspecified systolic (congestive) heart failure; N17.9 Acute kidney failure, unspecified; K25.9 Gastric ulcer, unspecified as acute or chronic, without hemorrhage or perforation; I95.9 Hypotension, unspecified; E87.6 Hypokalemia; D50.9 Iron deficiency anemia, unspecified; Z86.711 Personal history of pulmonary embolism; Z79.01 Long term (current) use of anticoagulants; I48.91 Unspecified atrial fibrillation; K44.9 Diaphragmatic hernia without obstruction or gangrene; W19.XXXA Unspecified fall, initial encounter; Z79.890 Hormone replacement therapy
CPT/HCPCS: 36415; 70450; 72170; 80048; 80053; 81001; 82274; 83605; 83735; 84484; 85025; 85610; 85730; 86850; 86900; 86901; 86920; 86922; 93005; 97110; 97116; 97162; 97166; 97530; 97535; 99285; J7040; J7120; P9016; A4216; J1940; J3490

== ENCOUNTER → 2021-07-09 15:16 | Outpatient (CLI) | payer MEDICARE, OTHER, SELFPAY ==
[2021-07-09 18:14] LABS: Absolute Lymphocyte Count 1.02 X10^3/uL (0.83-4.51); Absolute Neutrophil Count 3.1 X10^3/uL (2.0-7.7); Basophil# 0.05 X10^3/uL; Eosinophil# 0.56 X10^3/uL; Eosinophils% 10.9 % (0-5); Hematocrit 25.5 % (40-54); Lymphocyte # 1.02 X10^3/ul (0.83-4.51); Lymphocyte % 19.8 % (19-41); Mean Corp Hgb Conc 31.4 g/dL (32-36); Mean Corpuscular Hgb 29.1 pg (27.0-32.0); Mean Corpuscular Volume 92.7 fL (80-94); Mean Platelet Vol. 10.3 fl (6.2-12.0); Monocyte# 0.42 X10^3/uL; Monocyte% 8.2 % (0-10); NRBC Flagged by Analyzer 0 % (0-5); Neutrophil # 3.08 X10^3/uL (2.7-7.7); Neutrophil % 59.7 % (47-70); Platelet Count 276 K/mm3 (150-450); RBC Distribution Width CV 15.8 % (11.6-14.6); RBC Distribution Width SD 53.7 fl (35.1-43.9); Red Blood Count 2.75 M/mm3 (4.6-6.2); White Blood Count 5.2 K/mm3 (4.4-11.0)
== END ==
PROVIDERS: PCP Family Medicine; Visit Provider Family Medicine
DX: D64.9 Anemia, unspecified (principal)
CPT/HCPCS: 36415; 85025

== ENCOUNTER → 2021-08-09 07:54 | Outpatient (CLI) | payer MEDICARE, OTHER, SELFPAY ==
[2021-08-09 10:41] LABS: Anion Gap 10 (5-15); BUN 116 mg/dL (7-18); BUN/Creat Ratio 36.8 RATIO (10-20); Calcium,Total 9.6 mg/dL (8.5-10.1); Chloride 90 mmol/L (98-107); Creatinine, Serum 3.15 mg/dL (0.70-1.30); EST Glomerular Filtration Rate 20 mL/min (>60); Est Glom Filt Rate - Afr Amer 25 mL/min (>60); Glucose 120 mg/dL (74-106); Potassium 4.1 mmol/L (3.5-5.1); Sodium Level 131 mmol/L (136-145)
== END ==
PROVIDERS: PCP Family Medicine
DX: I10 Essential (primary) hypertension (principal)
CPT/HCPCS: 36415; 80048

== ENCOUNTER 2021-08-20 17:30 | Inpatient (IN) | payer OTHER, SELFPAY ==
[2021-08-20] VITALS (15 sets, daily range): BP systolic 56–114; BP diastolic 41–66; PULSE 68–83; RESP 13–23; TEMP 35.6–36.1; O2SAT 95–100; BMI 24.3; BMI 24.4
--- NOTE | 2021-08-20 18:35 | EKG12_ITS ---
Test Reason : WEAKNESS Blood Pressure : / mmHG Vent. Rate : 066 BPM Atrial Rate : 066 BPM P-R Int : 302 ms QRS Dur : 114 ms QT Int : 436 ms P-R-T Axes : 023 259 -13 degrees QTc Int : 457 ms Atrial-sensed ventricular-paced rhythm with prolonged AV conduction Abnormal ECG Confirmed by ZENA BRYANT, NANCY ([id number]), restaurant expeditor LUISA GUNTER ([id number]) on 08/21/2021 8:40:58 AM Referred By: GEOFF Confirmed By:NANCY FREITAS MD
--- NOTE | 2021-08-20 18:42 | RAD_ITS ---
HISTORY: weakness EXAMINATION/TECHNIQUE: XR Chest 1 View: Portable upright AP chest x-ray COMPARISON: 10/08/16 FINDINGS: LINES/DEVICES: Transvenous pacemaker. LUNGS: No consolidation, edema or effusion. No pneumothorax. MEDIASTINUM AND CARDIOVASCULAR STRUCTURES: Cardiac silhouette is enlarged. Central airways and mediastinal contour are unremarkable. BONES AND SOFT TISSUES: No acute bony abnormalities. RAD/Chest 1 View (Portable) IMPRESSION: Cardiomegaly without radiographic evidence of acute cardiopulmonary disease. at 1937 Reported and signed by: Benito Cedeño MD Electronically Signed: Benito Cedeño MD at 19:36 EST ,
[2021-08-20 19:05] LABS: Absolute Lymphocyte Count 0.91 X10^3/uL (0.83-4.51); Absolute Neutrophil Count 5.1 X10^3/uL (2.0-7.7); Basophil# 0.02 X10^3/uL; Basophil% 0.3 % (0-1); Eosinophil# 0.48 X10^3/uL; Eosinophils% 6.6 % (0-5); Hematocrit 14.5 % (40-54); Lymphocyte # 0.91 X10^3/ul (0.83-4.51); Lymphocyte % 12.5 % (19-41); Mean Corpuscular Hgb 29.6 pg (27.0-32.0); Mean Corpuscular Volume 95.4 fL (80-94); Mean Platelet Vol. 9.8 fl (6.2-12.0); Monocyte# 0.62 X10^3/uL; Monocyte% 8.5 % (0-10); NRBC Flagged by Analyzer 0 % (0-5); Neutrophil # 5.14 X10^3/uL (2.7-7.7); Neutrophil % 70.9 % (47-70); POSITIVE COUNT YES; Platelet Count 418 K/mm3 (150-450); RBC Distribution Width CV 16.7 % (11.6-14.6); RBC Distribution Width SD 57.2 fl (35.1-43.9); Red Blood Count 1.52 M/mm3 (4.6-6.2); White Blood Count 7.3 K/mm3 (4.4-11.0)
[2021-08-20 19:14] LABS: Bacteria 0 SEEN /hpf (None Seen); Mucous, Urine 0 SEEN /hpf (<or=2+); Red Blood Cells-Urine 0 SEEN /hpf (0-5); Squamous Epithelial Cells - UA 0 SEEN /hpf (0-5)
[2021-08-20 19:16] LABS: International Normalized Ratio 1.5; Prothrombin Time (Protime)PT. 17.6 SECONDS (11.7-14.9)
[2021-08-20 19:22] LABS: Color, Urine Yellow (Yellow); Glucose, Dipstick Normal (Normal); Ketone-Dipstick Negative (Negative); Leukocyte Esterase-Dipstick 25 /ul (Negative); Nitrite-Dipstick Negative (Negative); Occult Blood-Urine Negative /ul (Negative); Protein-Dipstick Negative (Negative); Urine Bilirubin Dipstick Negative (Negative); Urine Clarity Sl. Cloudy (Clear); Urine Urobilinogen Normal (Normal)
[2021-08-20 19:26] LABS: Differential Indicated SCAN CRITERIA MET
--- NOTE | 2021-08-20 19:30 | CON.PCM.GI_ITS ---
HPI Consult Data Date of Consult: 08/21/21 HPI Narrative HPI Narrative: MEGAN SANDHU, is a 81 M who presents with GI bleed. He presented to the ER with dizziness last month. He has a history of atrial fibrillation with CHF, RVR, CKD, GI bleed secondary to gastric ulcer on Eliquis therapy for atrial fibrillation. He underwent upper endoscopy and was discovere d to have a large hiatal hernia with Stevan's erosions, multiple AVMs in the small bowel with active bleeding status post epinephrine, cauterization and clipping. He presented back to the ED today with worsening fatigue, weakness and GI bleeding. He recently was started back on his Eliquis. In the ED, his hemoglobin along with BUN/creatinine ratio is extremely high. Overnight he had multiple episodes of black stools and bloody stools. Hemoglobin dropped all way down to 4.8. He received 2 units of packed red blood cells and scheduled to get 2 more. His latest hemoglobin is at 5.6. His Eliquis has been held. He is maintaining his blood pressure overnight. [facility] Medical History Anticoagulant-induced bleeding Benign positional vertigo Blood transfusion during current hospitalisation CKD (chronic kidney disease), stage IV GI bleed HFrEF (heart failure with reduced ejection fraction) Hiatal hernia MIAU (minor aphthous ulceration) Pulmonary embolism Home Medications B12 Active 1,000 mcg PO DAILY 06/28/21 [History Last Taken Unknown] Eliquis 2.5 mg PO BID 06/28/21 [History Last Taken Unknown] Entresto 1 tab PO BID 06/28/21 [History Last Taken Unknown] Men's 50 Plus Multivitamin 1 tab PO DAILY 06/28/21 [History Last Taken Unknown] gabapentin 600 mg PO BID 06/28/21 [History Last Taken Unknown] levothyroxine 75 mcg PO DAILY 06/28/21 [History Last Taken Unknown] metolazone 5 mg PO MOWEFR 06/28/21 [History Last Taken Unknown] metoprolol succinate 100 mg PO DAILY 06/28/21 [History Last Taken Unknown] pantoprazole 40 mg PO DAILY 06/28/21 [History Last Taken Unknown] potassium chloride 20 meq PO BID 06/28/21 [History Last Taken Unknown] sertraline 25 mg PO DAILY 06/28/21 [History Last Taken Unknown] spironolactone 25 mg PO DAILY 06/28/21 [History Last Taken Unknown] tamsulosin 0.4 mg PO DAILY 06/28/21 [History Last Taken Unknown] torsemide 100 mg PO BID 06/28/21 [History Last Taken Unknown] ferrous sulfate 325 mg PO DAILY #30 tab 07/01/21 [Rx Last Taken Unknown] sucralfate [Carafate] 1 g PO .QID 30 Days tab 07/01/21 [Rx Last Taken Unknown] metformin 500 mg PO DAILY 08/20/21 [History Last Taken Unknown] Allergy/AdvReac Type Severity Reaction Status Date / Time No Known Allergies Allergy Verified 08/20/21 17:30 Family History Other Hypertension Surgical History History of permanent cardiac pacemaker placement Social History household members: spouse Smoking Status: Never smoker substance use type: does not use ROS Gastrointestinal Gastrointestinal: Reports melena Physical Exam Const alert General Appearance: cooperative Orientation / Consciousness: oriented to person HEENT hearing grossly normal bilaterally Head and Scalp: normal to inspection Face and Sinus: face symmetric Nose: external nose normal Mouth: oral and palatal mucosa normal Eyes conjunctivae normal General Eye: normal appearance of both eyes Neck full ROM General: normal visual inspection Lymph Lymphatic: no lymphadenopathy noted Chest inspection of chest normal and palpation of chest normal Chest: symmetrical chest wall rise Resp normal respiratory effort Effort and Inspection: able to speak in complete sentences Cardio regular rate GI non-distended Percussion: normal to percussion Rectal Exam: deferred Neuro Speech: speech normal Gait (Neuro): normal gait Lab / Micro Data Result Diagrams: 08/21/21 03:10 08/21/21 03:10 Labs: Laboratory Results - last 24 hr 08/20/21 18:50: PT 17.6 H, INR 1.5 08/20/21 19:00: Urine Color Yellow, Urine Clarity Sl. Cloudy, Urine pH 5.0, Ur Specific Florien 1.010, Urine Protein Negative, Urine Glucose (UA) Normal, Urine Ketones Negative, Urine Occult Blood Negative, Urine Nitrite Negative, Urine Bilirubin Negative, Urine Urobilinogen Normal, Ur Leukocyte Esterase 25 H Assessment & Plan Assessment/Plan (1) GI bleed: QUALIFIERS: GI bleed type/associated pathology: melena Qualified Code(s): K92.1 - Melena PLAN: The differential diagnosis for his GI bleed could be a recurrent upper GI bleed above the ligament of Treitz secondary to the ministration of Eliquis therapy and renal failure. He however has not had a colonoscopy in multiple years and the fact that he had bright red blood along with melanotic stools indicates that it could be from the small bowel or colon. He should undergo an EGD and colonoscopy to evaluate his upper and lower GI tract. He may also need a capsule endoscopy. Recommend to transfuse 1 unit of packed red blood cells and prep him for colonoscopy. He was explained alternatives, risk, benefits including not withstanding bleeding, infection, sepsis, perforation, need for heart attack and . He will have an ASA of 3. Continue PPI as previously ordered. Charges/Coding Visit Charges Inpatient E&M: 34334 Init Hosp L2
[2021-08-20 19:32] LABS: ALB/GLOB Ratio 0.7 RATIO (0.9-2.4); AST(SGOT) 43 U/L (15-37); Alanine Aminotransfer ALT/SGPT 20 U/L (16-61); Albumin, Serum 2.8 g/dL (3.2-5.0); Alkaline Phosphatase 118 U/L (45-117); Anion Gap 13 (5-15); BUN 158 mg/dL (7-18); BUN/Creat Ratio 40.5 RATIO (10-20); Chloride 91 mmol/L (98-107); EST Glomerular Filtration Rate 16 mL/min (>60); Est Glom Filt Rate - Afr Amer 19 mL/min (>60); Estimated Creatinine Clearance 13.65 ml/min; Globulin 4.2 g/dL (2.2-4.2); Glucose 128 mg/dL (74-106); Hemoglobin 4.5 g/dL (13.0-16.5); Potassium 4.6 mmol/L (3.5-5.1); Sodium Level 130 mmol/L (136-145); Troponin-I HS 31 pg/mL (3.0-78.0)
[2021-08-20 19:34] LABS: Anisocytosis 1+; Burr Cells 1+; Platelet Estimate SLT INC (ADEQ); Polychromasia RARE; Red Cell Morphology N CHROM NORMAL (NORM C&C)
[2021-08-20 19:35] LABS: Hypochromasia 1+; Macrocytosis 1+; Ovalocyte RARE; Target Cells RARE
[2021-08-20 19:41] LABS: White Blood Cells 0-5 SEEN /hpf (0-5)
--- NOTE | 2021-08-20 20:38 | PCM.HP.STD ---
HPI - General General Date of Admission: 08/20/21 HPI Narrative MEGAN SANDHU, is a 81 M with a significant history of heart failure with reduced ejection fraction (reported last EF on September 10 2020 was 14%) ; and with a pacemaker and ICD; a GI bleed; PE on Eliquis who presents to the emergency department with a 5-day history of progressively worsening weakness. Reportedly patient is so weak that he is unable to raise his arms. He reports joint pain and back pain. His pain worsens with movements. He reports lightheadedness. While at emergency department he reported left leg pain and a feeling of swelling in his left leg. Also he reports melena in the setting of taking iron pills. Further, he has had multiple loose stools. ED doc reports black stools. Occult stools obtained at the ED returned positive for [facility] Medical History Anticoagulant-induced bleeding Benign positional vertigo Blood transfusion during current hospitalisation CKD (chronic kidney disease), stage IV GI bleed HFrEF (heart failure with reduced ejection fraction) Hiatal hernia MIAU (minor aphthous ulceration) Pulmonary embolism Home Medications B12 Active 1,000 mcg PO DAILY 06/28/21 [History Last Taken Unknown] Eliquis 2.5 mg PO BID 06/28/21 [History Last Taken Unknown] Entresto 1 tab PO BID 06/28/21 [History Last Taken Unknown] Men's 50 Plus Multivitamin 1 tab PO DAILY 06/28/21 [History Last Taken Unknown] gabapentin 600 mg PO BID 06/28/21 [History Last Taken Unknown] levothyroxine 75 mcg PO DAILY 06/28/21 [History Last Taken Unknown] metolazone 5 mg PO MOWEFR 06/28/21 [History Last Taken Unknown] metoprolol succinate 100 mg PO DAILY 06/28/21 [History Last Taken Unknown] pantoprazole 40 mg PO DAILY 06/28/21 [History Last Taken Unknown] potassium chloride 20 meq PO BID 06/28/21 [History Last Taken Unknown] sertraline 25 mg PO DAILY 06/28/21 [History Last Taken Unknown] spironolactone 25 mg PO DAILY 06/28/21 [History Last Taken Unknown] tamsulosin 0.4 mg PO DAILY 06/28/21 [History Last Taken Unknown] torsemide 100 mg PO BID 06/28/21 [History Last Taken Unknown] ferrous sulfate 325 mg PO DAILY #30 tab 07/01/21 [Rx Last Taken Unknown] sucralfate [Carafate] 1 g PO .QID 30 Days tab 07/01/21 [Rx Last Taken Unknown] metformin 500 mg PO DAILY 08/20/21 [History Last Taken Unknown] Allergy/AdvReac Type Severity Reaction Status Date / Time No Known Allergies Allergy Verified 08/20/21 17:30 Family History Other Hypertension Surgical History History of permanent cardiac pacemaker placement Social History household members: spouse Smoking Status: Never smoker substance use type: does not use ROS ROS Narrative Constitutional: Denies fever, chills, anorexia and change in weight Eyes: Denies blurry vision, change in eye color, change in vision, discharge from eye(s), double vision, erythema, eye pain, loss of vision or other HEENT: Denies abnormal hearing, dysphagia, ear pain, epistaxis, headache(s), hearing loss, nasal congestion, nasal discharge, post nasal drip, sinus pressure, sore throat or other Cardiovascular: Denies chest pain or palpitations. Report dyspnea on exertion Respiratory/Chest: Denies cough, excessive phlegm production. Gastrointestinal: Reports multiple loose stools. Reports melena. Denies constipation or dyspepsia. Denies coffee-ground emesis. Genitourinary: Denies burning urination, difficulty urinating, dysuria, hematuria, nocturia, urinary frequency, urinary hesitancy, urinary incontinence, urinary urgency or other Musculoskeletal: Reports arthralgias, and back pain. Neurologic: Reports lightheadedness. Denies abnormal gait, abnormal speech, confusion, focal weakness, headache(s), numbness, paresthesias, seizure-like activity, seizures, syncope, tingling, tremor(s) or other Psychiatric: Denies anxiety, depression, homicidal ideation, suicidal ideation or other Endocrinology: Denies change in body appearance, cold intolerance, excessive sweating, heat intolerance, polydipsia, polyuria or other Hematologic/Lymphatic: Denies easy bruising, lymphadenopathy or other Integumentary: Denies rashes Allergic/Immunologic: Denies rhinitis, hives, eczema, asthma or other Vital Signs Vital Signs Vital Signs: 08/20/21 17:31 08/20/21 18:23 08/20/21 19:08 Temperature 96.0 F L Temperature Source Temporal Pulse Rate 68 Pulse Rate [Sitting] 71 Pulse Rate [Standing] 79 Respiratory Rate 17 Respiratory Effort Normal Non-Labored Respiratory Pattern Normal Blood Pressure 101/44 L Blood Pressure [Sitting] 98/49 L Blood Pressure [Standing] 56/41 L Blood Pressure Mean 63 Blood Pressure Mean [Sitting] 65 Blood Pressure Mean [Standing] 46 Pulse Ox 100 Oxygen Delivery Method Room Air 08/20/21 19:30 08/20/21 20:03 08/20/21 20:25 Temperature Temperature Source Pulse Rate 68 Pulse Rate [Sitting] Pulse Rate [Standing] Respiratory Rate 15 Respiratory Effort Respiratory Pattern Blood Pressure 103/66 112/54 L 114/57 L Blood Pressure [Sitting] Blood Pressure [Standing] Blood Pressure Mean 78 73 76 Blood Pressure Mean [Sitting] Blood Pressure Mean [Standing] Pulse Ox 95 Oxygen Delivery Method Room Air Weight Weight: 70.307 kg Body Mass Index (BMI) 24.3 Physical Exam Narrative Physical exam: General: Well-nourished, well-developed. Head: Normocephalic, atraumatic, no tenderness Eyes: PERRLA, EOMI ENT, no trauma, moist mucous membranes, no rhinorrhea Neck: Nontender, full range of motion, no spinal tenderness, deformities, step-off CVS: Regular rate and rhythm. S1-S2 present. No murmur, gallop or rub. Respiratory : clear to auscultation bilaterally, chest wall nontender, no wheezing Abdomen: Soft, nontender, nondistended, normal bowel sounds, no masses : Deferred Extremities: Swelling of bilateral lower extremities left worse than right. Skin: Normal color, no trauma, abrasions Neuro: Alert, oriented, cranial nerves II through XII grossly intact. Psychiatry: Normal mood. Normal affect. Not depressed. Not anxious. Results Lab / Micro Data Result Diagrams: 08/20/21 18:50 08/20/21 18:50 Labs: Laboratory Results - last 24 hr 08/20/21 18:50: WBC 7.3, RBC 1.52 L, Hgb 4.5 L*, Hct 14.5 L, MCV 95.4 H, MCH 29.6, MCHC 31.0 L, RDW Std Deviation 57.2 H, RDW Coeff of Anuradha 16.7 H, Plt Count 418, MPV 9.8, Immature Gran % (Auto) 1.200 H, Neut % (Auto) 70.9 H, Lymph % (Auto) 12.5 L, [place] % (Auto) 8.5, Eos % (Auto) 6.6 H, Baso % (Auto) 0.3, Absolute Neuts (auto) 5.1, Absolute Lymphs (auto) 0.91, Nucleated RBC % 0, Diff Path Review May foll, Platelet Estimate SLT INC, RBC Morphology N CHROM, Polychromasia RARE, Hypochromasia 1+, Anisocytosis 1+, Macrocytosis 1+, Target Cells RARE, Ovalocytes RARE, [place] Cells 1+ 08/20/21 18:50: PT 17.6 H, INR 1.5 08/20/21 18:50: Sodium 130 L, Potassium 4.6, Chloride 91 L, Carbon Dioxide 26.0, Anion Gap 13, BUN 158 H*, Creatinine 3.90 H, Estim Creat Clear Calc 13.65, Est GFR (MDRD) Af Amer 19 L, Est GFR (MDRD) Non-Af 16 L, BUN/Creatinine Ratio 40.5 H, Glucose 128 H, Calcium 9.0, Total Bilirubin 0.40, AST 43 H, ALT 20, Alkaline Phosphatase 118 H, Troponin I High Sens 31, Total Protein 7.0, Albumin 2.8 L, Globulin 4.2, Albumin/Globulin Ratio 0.7 L 08/20/21 18:50: Blood Type AB POSITIVE, Antibody Screen NEGATIVE 08/20/21 18:50: Crossmatch See Detail 08/20/21 19:00: Urine Color Yellow, Urine Clarity Sl. Cloudy, Urine pH 5.0, Ur Specific [place] 1.010, Urine Protein Negative, Urine Glucose (UA) Normal, Urine Ketones Negative, Urine Occult Blood Negative, Urine Nitrite Negative, Urine Bilirubin Negative, Urine Urobilinogen Normal, Ur Leukocyte Esterase 25 H, Urine RBC 0 SEEN, Urine WBC 0-5 SEEN, Ur Squamous Epith Cells 0 SEEN, Urine Bacteria 0 SEEN, Urine Mucus 0 SEEN Micro: Microbiology 08/20/21 19:45 Stool Stool Occult Blood (BRAD) - Final Occult Blood Positive Radiology Impression Chest X-Ray 08/20/21 18:42 IMPRESSION: Cardiomegaly without radiographic evidence of acute cardiopulmonary disease. at 1937 Reported and signed by: Benito Cedeño MD Electronically Signed: Benito Cedeño MD at 19:36 EST , Assessment & Plan Assessment/Plan (1) GI bleed: QUALIFIERS: GI bleed type/associated pathology: melena Qualified Code(s): K92.1 - Melena (2) Orthostatic hypotension: PLAN: Acute blood loss anemia with orthostatic hypotension Occult stool returned positive. At the emergency department patient was orthostatic positive with systolic blood pressure in the 50s after positional change Review of labs showed hemoglobin of 4.5. Of note his last hemoglobin on 07/09/2021 was 8.0 and on 07/01/2021 was 7.2. Of note patient had an upper GI endoscopy with Dr. Merida on 06/29/2021. Impression of procedure notes was normal esophagus. Large hiatal hernia. Mucosa changes suspicious for gastritis with hemorrhage. 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 Treated with argon beam coagulation. Clips were placed. No specimen was collected. Normal saline bolus was ordered emergency department and 2 units of packed red blood cells was ordered to be transfused at the emergency department. Protonix drip was started emergency department We will continue Protonix drip. Hold off further normal saline bolus in view of patient's with ejection fraction of 15%. Will trend H&H. If H&H is below 7 transfuse additional PRBC and give Lasix in between transfusions. Of note because of GI bleed patient Eliquis was previously held and resumed recently. We will hold Eliquis at this time. Patient is familiar with scalp treatment specialist, Dr. Merida. Compressor House Operator was consulted at the emergency department. Inpatient gastroenterology consult. Will admit intensive care unit and will consult supervisor plastic sheets. Heart failure with reduced ejection fraction Appears stable. Chest x-ray independently visualized and interpreted showed cardiomegaly with a pacemaker/ICD with no acute cardiopulmonary process and I agree with radiologist interpretation. Bilateral leg edema upon physical examination. Telemetric rhythm reviewed showed a paced rhythm. Per patient's ex- who was at the bedside and patient, last echocardiogram showed ejection fraction of 14%. Per review of previous hospitalist notes patient cardiology is Dr. Roth and ejection fraction is a 15%. This is consistent with history taken from patient and ex-. Would hold off diuretics at this time except to give Lasix in between transfusion if more than 2 units of blood is required. We will continue home metoprolol. Trend blood pressures. 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 Creatinine on presentation was 3.9. Review of record shows creatinine baseline from 2.6-3.15. GABI likely secondary to acute blood loss anemia. Packed red blood cell transfusion as above. Hold home diuretics for now. Trend BMP. Generalized weakness Likely secondary to acute blood loss anemia. Transfuse as above. PT and OT to work with patient. Diabetes mellitus Patient with mild hyperglycemia on presentation Cardiac with calorie controlled diet and n.p.o. after midnight. Hold home Metformin. Accu-Chek QA CHS with correction scale insulin ordered. History of PE Review of records shows that patient Eliquis is for PE. Also seen documentation in chart that Eliquis is full A. fib. Patient is unsure why he takes Eliquis. Eliquis on hold at this time secondary to acute blood loss anemia. DVT prophylaxis: SCD ordered Charges/Coding Visit Charges Inpatient E&M: 41599 Init Hosp L3
--- NOTE | 2021-08-20 20:54 | EDS_ITS ---
HPI HPI - GI History of Present Illness Chief Complaint: Weakness Narrative Narrative: 81-year-old male presenting with generalized weakness and black stools which he states have been going on for a week. Patient has a history of GI bleed and is on Eliquis. He is currently on iron as well. Patient states he is having to walk the counters at his home and having difficulty reaching his microwave. He is having trouble caring for self has not fallen again. Patient denies chest pain or shortness of breath. He denies fever or chills. He denies abdominal pain. [facility] Medical History Anticoagulant-induced bleeding Benign positional vertigo Blood transfusion during current hospitalisation CKD (chronic kidney disease), stage IV GI bleed HFrEF (heart failure with reduced ejection fraction) Hiatal hernia MIAU (minor aphthous ulceration) Pulmonary embolism Home Medications B12 Active 1,000 mcg PO DAILY 06/28/21 [History Last Taken Unknown] Eliquis 2.5 mg PO BID 06/28/21 [History Last Taken Unknown] Entresto 1 tab PO BID 06/28/21 [History Last Taken Unknown] Men's 50 Plus Multivitamin 1 tab PO DAILY 06/28/21 [History Last Taken Unknown] gabapentin 600 mg PO BID 06/28/21 [History Last Taken Unknown] levothyroxine 75 mcg PO DAILY 06/28/21 [History Last Taken Unknown] metolazone 5 mg PO MOWEFR 06/28/21 [History Last Taken Unknown] metoprolol succinate 100 mg PO DAILY 06/28/21 [History Last Taken Unknown] pantoprazole 40 mg PO DAILY 06/28/21 [History Last Taken Unknown] potassium chloride 20 meq PO BID 06/28/21 [History Last Taken Unknown] sertraline 25 mg PO DAILY 06/28/21 [History Last Taken Unknown] spironolactone 25 mg PO DAILY 06/28/21 [History Last Taken Unknown] tamsulosin 0.4 mg PO DAILY 06/28/21 [History Last Taken Unknown] torsemide 100 mg PO BID 06/28/21 [History Last Taken Unknown] ferrous sulfate 325 mg PO DAILY #30 tab 07/01/21 [Rx Last Taken Unknown] sucralfate [Carafate] 1 g PO .QID 30 Days tab 07/01/21 [Rx Last Taken Unknown] metformin 500 mg PO DAILY 08/20/21 [History Last Taken Unknown] Allergy/AdvReac Type Severity Reaction Status Date / Time No Known Allergies Allergy Verified 08/20/21 17:30 Social History household members: spouse Smoking Status: Never smoker substance use type: does not use ROS ROS ED ROS Narrative Generalized weakness Constitutional Constitutional ED: Denies chills or fever(s) ENT ENT ED: Denies rhinorrhea Cardiovascular Cardiovascular: Denies chest pain or palpitations Respiratory/Chest Respiratory/Chest: Denies cough or dyspnea Gastrointestinal Gastrointestinal: Reports melena; Denies abdominal pain, nausea or vomiting Genitourinary Genitourinary ED: Denies dysuria or hematuria Musculoskeletal Musculoskeletal: Denies arthralgias, back pain, myalgias or neck pain Integumentary Denies rash Neurologic Neurologic: Denies headache(s) or paresthesias Psychiatric Psychiatric: Denies anxiety or depression EXAM Physical Exam Const Vital Signs: 08/20/21 17:31 08/20/21 18:23 08/20/21 19:08 Temperature 96.0 F L Temperature Source Temporal Pulse Rate 68 Pulse Rate [Sitting] 71 Pulse Rate [Standing] 79 Respiratory Rate 17 Respiratory Effort Normal Non-Labored Respiratory Pattern Normal Blood Pressure 101/44 L Blood Pressure [Sitting] 98/49 L Blood Pressure [Standing] 56/41 L Blood Pressure Mean 63 Blood Pressure Mean [Sitting] 65 Blood Pressure Mean [Standing] 46 Pulse Ox 100 Oxygen Delivery Method Room Air 08/20/21 19:30 08/20/21 20:03 08/20/21 20:25 Temperature Temperature Source Pulse Rate 68 Pulse Rate [Sitting] Pulse Rate [Standing] Respiratory Rate 15 Respiratory Effort Respiratory Pattern Blood Pressure 103/66 112/54 L 114/57 L Blood Pressure [Sitting] Blood Pressure [Standing] Blood Pressure Mean 78 73 76 Blood Pressure Mean [Sitting] Blood Pressure Mean [Standing] Pulse Ox 95 Oxygen Delivery Method Room Air Positive well nourished General Appearance ED: NAD; Negative for pallor HEENT Reports moist mucous membranes normocephalic and atraumatic Eyes PERRL and EOMs intact bilaterally General Eye ED: Negative for pale conjunctiva or scleral icterus Resp normal respiratory effort and clear to auscultation bilaterally Cardio regular rate and regular rhythm GI non-tender GI Narrative: Black stool on rectal exam. Palpation: soft Neuro Sensorium / Orientation: alert, oriented to person, oriented to place and oriented to time Psych mental status grossly normal and thought process normal Skin General Skin Exam: Negative for jaundice or pallor MDM MDM MDM Narrative Medical decision making narrative: Patient presenting with generalized weakness. He is also stating that he has dark stools. I obtained an EKG as part of the work-up and his EKG shows a paced rhythm with ventricular rate of 66 bpm without sign of ischemic change. Chest x-ray shows no acute cardiopulmonary process on my interpretation the radiologist does agree. Patient white blood count of 7.3. Hemoglobin 4.5. Hematocrit 14.5. PT is slightly prolonged at 17.6. INR is 1.5. Creatinine is elevated over baseline at 3.90. He is given a liter of IV fluids. BUN is also elevated 158. Occult stool came back positive. Patient typed and screened for 2 units of PRBCs. Prior to this I did check orthostatics and the patient does have orthostatic hypotension and drops into the 50s systolically when standing. Patient was discussed with Dr. Merida who recommended a Protonix drip as he recently had an upper endoscopy which showed gastritis and duodenal ulcer. Dr. Merida will see him in consult. Patient was admitted to the hospitalist in stable condition. Impression: 1. Lower GI bleed 2. Blood loss anemia?acute 3. Generalized weakness Lab Data Labs: Laboratory Results - last 24 hr 08/20/21 08/20/21 08/20/21 18:50 18:50 18:50 WBC 7.3 RBC 1.52 L Hgb 4.5 L* Hct 14.5 L MCV 95.4 H MCH 29.6 MCHC 31.0 L RDW Std Deviation 57.2 H RDW Coeff of Anuradha 16.7 H Plt Count 418 MPV 9.8 Immature Gran % (Auto) 1.200 H Neut % (Auto) 70.9 H Lymph % (Auto) 12.[address] [place] % (Auto) 8.5 Eos % (Auto) 6.6 H Baso % (Auto) 0.3 Absolute Neuts (auto) 5.1 Absolute Lymphs (auto) 0.91 Nucleated RBC % 0 Diff Path Review May foll Platelet Estimate SLT INC RBC Morphology N CHROM Polychromasia RARE Hypochromasia 1+ Anisocytosis 1+ Macrocytosis 1+ Target Cells RARE Ovalocytes RARE [place] Cells 1+ PT 17.6 H INR 1.5 Sodium 130 L Potassium 4.6 Chloride 91 L Carbon Dioxide 26.0 Anion Gap 13 BUN 158 H* Creatinine 3.90 H Estim Creat Clear Calc 13.65 Est GFR (MDRD) Af Amer 19 L Est GFR (MDRD) Non-Af 16 L BUN/Creatinine Ratio 40.5 H Glucose 128 H Calcium 9.0 Total Bilirubin 0.40 AST 43 H ALT 20 Alkaline Phosphatase 118 H Troponin I High Sens 31 Total Protein 7.0 Albumin 2.8 L Globulin 4.2 Albumin/Globulin Ratio 0.7 L Urine Color Urine Clarity Urine pH Ur Specific [place] Urine Protein Urine Glucose (UA) Urine Ketones Urine Occult Blood Urine Nitrite Urine Bilirubin Urine Urobilinogen Ur Leukocyte Esterase Urine RBC Urine WBC Ur Squamous Epith Cells Urine Bacteria Urine Mucus Blood Type Antibody Screen Crossmatch 08/20/21 08/20/21 08/20/21 18:50 18:50 18:50 WBC RBC Hgb Hct MCV MCH MCHC RDW Std Deviation RDW Coeff of Anuradha Plt Count MPV Immature Gran % (Auto) Neut % (Auto) Lymph % (Auto) [place] % (Auto) Eos % (Auto) Baso % (Auto) Absolute Neuts (auto) Absolute Lymphs (auto) Nucleated RBC % Diff Path Review Platelet Estimate RBC Morphology Polychromasia Hypochromasia Anisocytosis Macrocytosis Target Cells Ovalocytes [place] Cells PT INR Sodium Potassium Chloride Carbon Dioxide Anion Gap BUN Creatinine Estim Creat Clear Calc Est GFR (MDRD) Af Amer Est GFR (MDRD) Non-Af BUN/Creatinine Ratio Glucose Calcium Total Bilirubin AST ALT Alkaline Phosphatase Troponin I High Sens Total Protein Albumin Globulin Albumin/Globulin Ratio Urine Color Urine Clarity Urine pH Ur Specific [place] Urine Protein Urine Glucose (UA) Urine Ketones Urine Occult Blood Urine Nitrite Urine Bilirubin Urine Urobilinogen Ur Leukocyte Esterase Urine RBC Urine WBC Ur Squamous Epith Cells Urine Bacteria Urine Mucus Blood Type AB POSITIVE Antibody Screen NEGATIVE Crossmatch See Detail See Detail 08/20/21 19:00 WBC RBC Hgb Hct MCV MCH MCHC RDW Std Deviation RDW Coeff of Anuradha Plt Count MPV Immature Gran % (Auto) Neut % (Auto) Lymph % (Auto) [place] % (Auto) Eos % (Auto) Baso % (Auto) Absolute Neuts (auto) Absolute Lymphs (auto) Nucleated RBC % Diff Path Review Platelet Estimate RBC Morphology Polychromasia Hypochromasia Anisocytosis Macrocytosis Target Cells Ovalocytes [place] Cells PT INR Sodium Potassium Chloride Carbon Dioxide Anion Gap BUN Creatinine Estim Creat Clear Calc Est GFR (MDRD) Af Amer Est GFR (MDRD) Non-Af BUN/Creatinine Ratio Glucose Calcium Total Bilirubin AST ALT Alkaline Phosphatase Troponin I High Sens Total Protein Albumin Globulin Albumin/Globulin Ratio Urine Color Yellow Urine Clarity Sl. Cloudy Urine pH 5.0 Ur Specific [place] 1.010 Urine Protein Negative Urine Glucose (UA) Normal Urine Ketones Negative Urine Occult Blood Negative Urine Nitrite Negative Urine Bilirubin Negative Urine Urobilinogen Normal Ur Leukocyte Esterase 25 H Urine RBC 0 SEEN Urine WBC 0-5 SEEN Ur Squamous Epith Cells 0 SEEN Urine Bacteria 0 SEEN Urine Mucus 0 SEEN Blood Type Antibody Screen Crossmatch Radiography Diagnostic Testing: Clinical Impression(s) from Imaging Studies Chest X-Ray 08/20/21 18:42 IMPRESSION: Cardiomegaly without radiographic evidence of acute cardiopulmonary disease. at 1938 Reported and signed by: Benito Cedeño MD Electronically Signed: Benito Cedeño MD at 19:36 EST Reading Location ID and State: [facility] [place] / [place] Tel , Service support , Discharge Plan Triage Chief Complaint: Weakness ED Provider: Enrico Davenport Dx/Rx/DC Orders Prescriptions: No Action gabapentin 600 mg Tablet 600 mg PO BID RF: 0 metoprolol succinate 100 mg Tablet Extended Release 24 Hr 100 mg PO DAILY RF: 0 metolazone 5 mg Tablet 5 mg PO MOWEFR RF: 0 spironolactone 25 mg Tablet 25 mg PO DAILY RF: 0 levothyroxine 75 mcg Tablet 75 mcg PO DAILY RF: 0 potassium chloride 20 mEq Tablet,Er Particles/Crystals 20 meq PO BID RF: 0 torsemide 100 mg Tablet 100 mg PO BID RF: 0 tamsulosin 0.4 mg Capsule 0.4 mg PO DAILY RF: 0 pantoprazole 40 mg Tablet,Delayed Release (Dr/Ec) 40 mg PO DAILY RF: 0 sertraline 25 mg Tablet 25 mg PO DAILY RF: 0 Eliquis 2.5 mg Tablet 2.5 mg PO BID RF: 0 Hold Instructions: Resume on 07/14/21. Resume Eliquis on 07/14/21. Men's 50 Plus Multivitamin 400-20-370 mcg Tablet 1 tab PO DAILY RF: 0 B12 Active 1,000 mcg Tablet,Chewable 1,000 mcg PO DAILY RF: 0 Entresto 49-51 mg Tablet 1 tab PO BID RF: 0 ferrous sulfate 325 mg (65 mg iron) tablet 325 mg PO DAILY Qty: 30 RF: 0 sucralfate [Carafate] 1 gram tablet 1 g PO .QID 30 Days RF: 0 metformin 500 mg tablet extended release 24 hr 500 mg PO DAILY RF: 0 Primary Care Provider: Joseph Durand
[2021-08-20 22:08] LABS: Hematocrit 14.4 % (40-54); POSITIVE COUNT YES
[2021-08-20 22:14] LABS: Hemoglobin 4.3 g/dL (13.0-16.5)
[2021-08-20] MEDS: Acetaminophen 325 MG Tablet 650 MG PO (22:34)
[2021-08-21] VITALS (37 sets, daily range): BP systolic 90–124; BP diastolic 38–94; PULSE 66–82; RESP 13–27; TEMP 35.7–36.8; O2SAT 90–100
[2021-08-21] MEDS: Insulin Lispro 100 UNIT/ML INSULN.PEN SC ×2 (00:31→12:57)
[2021-08-21 02:16] LABS: Bedside Glucose 166 mg/dL (70-110)
[2021-08-21 03:27] LABS: Absolute Lymphocyte Count 0.82 X10^3/uL (0.83-4.51); Basophil# 0.05 X10^3/uL; Basophil% 0.7 % (0-1); Eosinophil# 0.35 X10^3/uL; Eosinophils% 5.2 % (0-5); Hematocrit 18.9 % (40-54); Hemoglobin 5.8 g/dL (13.0-16.5); Lymphocyte # 0.82 X10^3/ul (0.83-4.51); Lymphocyte % 12.1 % (19-41); Mean Corp Hgb Conc 30.7 g/dL (32-36); Mean Corpuscular Volume 94.5 fL (80-94); Mean Platelet Vol. 9.4 fl (6.2-12.0); Monocyte# 0.54 X10^3/uL; NRBC Flagged by Analyzer 0 % (0-5); Neutrophil # 4.98 X10^3/uL (2.7-7.7); Neutrophil % 73.3 % (47-70); POSITIVE COUNT YES; Platelet Count 317 K/mm3 (150-450); RBC Distribution Width CV 15.6 % (11.6-14.6); RBC Distribution Width SD 51.8 fl (35.1-43.9); White Blood Count 6.8 K/mm3 (4.4-11.0)
[2021-08-21 03:52] LABS: Differential Indicated SCAN CRITERIA MET
[2021-08-21 04:21] LABS: Differential Comment SCANNED; Hypochromasia 2+
[2021-08-21 04:24] LABS: Anion Gap 10 (5-15); BUN 146 mg/dL (7-18); BUN/Creat Ratio 40.7 RATIO (10-20); Calcium,Total 8.6 mg/dL (8.5-10.1); Chloride 95 mmol/L (98-107); Creatinine, Serum 3.59 mg/dL (0.70-1.30); EST Glomerular Filtration Rate 17 mL/min (>60); Est Glom Filt Rate - Afr Amer 21 mL/min (>60); Estimated Creatinine Clearance 14.83 ml/min; Glucose 144 mg/dL (74-106); Potassium 3.8 mmol/L (3.5-5.1); Sodium Level 133 mmol/L (136-145)
[2021-08-21] MEDS: Furosemide 40 MG/4 ML Vial IV (04:53)
[2021-08-21] MEDS: Levothyroxine 75 MCG Tablet PO (05:53)
--- NOTE | 2021-08-21 06:55 | CON.PCM.CC_ITS ---
Assessment & Plan Assessment/Plan (1) GI bleed: QUALIFIERS: GI bleed type/associated pathology: melena Qualified Code(s): K92.1 - Melena (2) Orthostatic hypotension: (3) Congestive heart failure: PLAN: RECOMMENDATIONS: 1. Continue transfusions as ordered. Hemoglobin goal of at least 7 2. Await recommendations by Dr. Merida 3. Dose with Lasix as clinically indicated by hypoxia/Rales 4. Continue Protonix drip for now 5. Check orthostatics for discharge IMPRESSIONS: 1. Hypotension secondary to acute blood loss anemia secondary to upper GI bleed Patient with significant anemia on presentation. Patient does have a recent endoscopy showing an ulcer with gastritis. Unclear if patient will have a repeat endoscopy. There is a critical blood shortage at this time, so will shoot for hemoglobin goal of at least 7 instead of 8. Patient is still having black bowel movements. Continue to monitor H&H between blood transfusions. No indication for pressors at this time. 2. Acute on chronic systolic congestive heart failure/history of PE/A. fib Patient with last known ejection fraction of approximately 15%. Patient has been showing signs of fluid overload associated with blood products, but has been responsive to Lasix therapy. Given repeated GI bleed, may need to discuss with cardiology about possible cessation of anticoagulation for short period of time to allow for healing. Defer to hospitalist. We will continue to dose Lasix as necessary during volume expansion. 3. CKD stage IV/diabetes mellitus type 2/advanced age/multiple hospitalizations Complicates care, management, recovery and prognosis. Patient does appear to be doing okay from a glycemic standpoint. Generalized weakness on presentation likely secondary to #1. Patient does have significant uremia, likely secondary to problem #1, but is not having any complications that would indicate renal replacement therapy. HPI Consult Data Date of Consult: 08/21/21 HPI Narrative HPI Narrative: MEGAN SANDHU is an 81 M, with past medical history listed below, who presents to [facility] on 08/20/2021 secondary to generalized weakness and black stools for the past week. Patient states that he was unclear if this was a GI bleed as he is on iron at baseline. Patient does take Eliquis secondary to a history of PE and A. fib. Patient states that he started to develop worsening shortness of breath on exertion and weakness. Tahir patel was concerned that he may have a fall, so came to the ER for evaluation. Patient had not reported any fever, chills or abdominal pain. Patient did not have any breathlessness at rest. In the ER, patient was afebrile and normotensive at rest. Patient was saturating well on room air. Patient was orthostatic positive. Laboratory work-up showed a white blood cell count of 7.3, hemoglobin of 4.5 and a platelet count of 418. INR was slightly elevated at 1.5 and BUN was 158 with a creatini ne of 3.9. Glucose was slightly elevated at 128 along with alkaline phosphatase at 118. UA was unremarkable. Patient was found to be unresponsive to fluid boluses and remained orthostatic, so was ultimately admitted to the intensive care unit for further evaluation. Patient was also initiated on a Protonix drip after phone conversation with Dr. Merida. I was asked to see the patient secondary to hypotension with orthostatic positive results. Patient also has an EF of 15% and chronic kidney disease with a need for anticoagulation. Patient overall feels subjectively slightly improved since admission to the hospital. Patient has not tried to get up, but feels that he has more strength compared to previous. Patient did have some slightly productive cough and rales develop after the second unit, so was given some Lasix overnight. Patient is denying any chest pain, abdominal pain, nausea or vomiting at this time. Patient denies any trauma. Patient is not on any NSAIDs. Patient is not reporting any epistaxis. Patient feels this is very similar to a recent hospitalization where he was found to have gastritis and a duodenal ulcer. Review of systems otherwise negative from a constitutional, HEENT, respiratory, cardiovascular, GI, genitourinary, musculoskeletal, skin, neurologic, psychiatric and hematologic system unless stated above. [facility] Medical History Anticoagulant-induced bleeding Benign positional vertigo Blood transfusion during current hospitalisation CKD (chronic kidney disease), stage IV GI bleed HFrEF (heart failure with reduced ejection fraction) Hiatal hernia MIAU (minor aphthous ulceration) Pulmonary embolism Home Medications B12 Active 1,000 mcg PO DAILY 06/28/21 [History Last Taken Unknown] Eliquis 2.5 mg PO BID 06/28/21 [History Last Taken Unknown] Entresto 1 tab PO BID 06/28/21 [History Last Taken Unknown] Men's 50 Plus Multivitamin 1 tab PO DAILY 06/28/21 [History Last Taken Unknown] gabapentin 600 mg PO BID 06/28/21 [History Last Taken Unknown] levothyroxine 75 mcg PO DAILY 06/28/21 [History Last Taken Unknown] metolazone 5 mg PO MOWEFR 06/28/21 [History Last Taken Unknown] metoprolol succinate 100 mg PO DAILY 06/28/21 [History Last Taken Unknown] pantoprazole 40 mg PO DAILY 06/28/21 [History Last Taken Unknown] potassium chloride 20 meq PO BID 06/28/21 [History Last Taken Unknown] sertraline 25 mg PO DAILY 06/28/21 [History Last Taken Unknown] spironolactone 25 mg PO DAILY 06/28/21 [History Last Taken Unknown] tamsulosin 0.4 mg PO DAILY 06/28/21 [History Last Taken Unknown] torsemide 100 mg PO BID 06/28/21 [History Last Taken Unknown] ferrous sulfate 325 mg PO DAILY #30 tab 07/01/21 [Rx Last Taken Unknown] sucralfate [Carafate] 1 g PO .QID 30 Days tab 07/01/21 [Rx Last Taken Unknown] metformin 500 mg PO DAILY 08/20/21 [History Last Taken Unknown] Allergy/AdvReac Type Severity Reaction Status Date / Time No Known Allergies Allergy Verified 08/20/21 17:30 Family History Other Hypertension Surgical History History of permanent cardiac pacemaker placement Social History household members: spouse Smoking Status: Never smoker substance use type: does not use ROS ROS Narrative See HPI Physical Exam Const alert, oriented x3 and no apparent distress Constitutional Narrative: No conversational dyspnea HEENT head/scalp atraumatic and moist oral mucous membranes HEENT Narrative: No epistaxis noted Head and Scalp: normocephalic Eyes PERRL, EOMs intact bilaterally and conjunctivae normal Neck no lymphadenopathy, supple and no JVD Resp normal respiratory effort, no retractions, no use of accessory muscles and clear to auscultation bilaterally Cardio regular rate, no murmurs, no rub, no gallops and no JVD Rhythm: abnormal rhythm irregularly irregular GI normal to inspection, nondistended, normoactive bowel sounds, soft to palpation and non-tender Extremity normal to inspection, full ROM and no clubbing, cyanosis or edema Skin no rashes or lesions noted, no wounds and skin turgor normal Neuro CN's II-XII intact bilaterally Psych affect normal Lab / Micro Data Result Diagrams: 08/21/21 03:10 08/21/21 03:10 Labs: Laboratory Results - last 24 hr 08/20/21 18:50: WBC 7.3, RBC 1.52 L, Hgb 4.5 L*, Hct 14.5 L, MCV 95.4 H, MCH 29.6, MCHC 31.0 L, RDW Std Deviation 57.2 H, RDW Coeff of Anuradha 16.7 H, Plt Count 418, MPV 9.8, Immature Gran % (Auto) 1.200 H, Neut % (Auto) 70.9 H, Lymph % (Auto) 12.5 L, [place] % (Auto) 8.5, Eos % (Auto) 6.6 H, Baso % (Auto) 0.3, Absolute Neuts (auto) 5.1, Absolute Lymphs (auto) 0.91, Nucleated RBC % 0, Diff Path Review May foll, Platelet Estimate [employer], RBC Morphology N CHROM, Polychromasia RARE, Hypochromasia 1+, Anisocytosis 1+, Macrocytosis 1+, Target Cells RARE, Ovalocytes RARE, Poth Cells 1+ 08/20/21 18:50: PT 17.6 H, INR 1.5 08/20/21 18:50: Sodium 130 L, Potassium 4.6, Chloride 91 L, Carbon Dioxide 26.0, Anion Gap 13, BUN 158 H*, Creatinine 3.90 H, Estim Creat Clear Calc 13.65, Est GFR (MDRD) Af Amer 19 L, Est GFR (MDRD) Non-Af 16 L, BUN/Creatinine Ratio 40.5 H , Glucose 128 H, Calcium 9.0, Total Bilirubin 0.40, AST 43 H, ALT 20, Alkaline Phosphatase 118 H, Troponin I High Sens 31, Total Protein 7.0, Albumin 2.8 L, Globulin 4.2, Albumin/Globulin Ratio 0.7 L 08/20/21 18:50: Blood Type AB POSITIVE, Antibody Screen NEGATIVE 08/20/21 18:50: Crossmatch See Detail 08/20/21 18:50: Crossmatch See Detail 08/20/21 19:00: Urine Color Yellow, Urine Clarity Sl. Cloudy, Urine pH 5.0, Ur Specific [place] 1.010, Urine Protein Negative, Urine Glucose (UA) Normal, Urine Ketones Negative, Urine Occult Blood Negative, Urine Nitrite Negative, Urine Bilirubin Negative, Urine Urobilinogen Normal, Ur Leukocyte Esterase 25 H, Urine RBC 0 SEEN, Urine WBC 0-5 SEEN, Ur Squamous Epith Cells 0 SEEN, Urine Bacteria 0 SEEN, Urine Mucus 0 SEEN 08/20/21 22:00: Hgb 4.3 L*, Hct 14.4 L 08/20/21 23:42: POC Glucose 166 H 08/21/21 03:10: Sodium 133 L, Potassium 3.8, Chloride 95 L, Carbon Dioxide 28.0, Anion Gap 10, BUN 146 H*, Creatinine 3.59 H, Estim Creat Clear Calc 14.83, Est GFR (MDRD) Af Amer 21 L, Est GFR (MDRD) Non-Af 17 L, BUN/Creatinine Ratio 40.7 H , Glucose 144 H, Calcium 8.6 08/21/21 03:10: WBC 6.8, RBC 2.00 L, Hgb 5.8 L*, Hct 18.9 L, MCV 94.5 H, MCH 29.0, MCHC 30.7 L, RDW Std Deviation 51.8 H, RDW Coeff of Anuradha 15.6 H, Plt Count 317, MPV 9.4, Immature Gran % (Auto) 0.700, Neut % (Auto) 73.3 H, Lymph % (Auto) 12.1 L, [place] % (Auto) 8.0, Eos % (Auto) 5.2 H, Baso % (Auto) 0.7, Absolute Neuts (auto) 5.0, Absolute Lymphs (auto) 0.82 L, Nucleated RBC % 0, Differential Comment SCANNED, Diff Path Review May foll, Hypochromasia 2+ Micro: Microbiology 08/20/21 19:45 Stool Stool Occult Blood (BRAD) - Final Occult Blood Positive Radiology Impression Chest X-Ray 08/20/21 18:42 IMPRESSION: Cardiomegaly without radiographic evidence of acute cardiopulmonary disease. at 1937 Reported and signed by: Benito Cedeño MD Electronically Signed: Benito Cedeño MD at 19:36 EST , Charges/Coding Visit Charges Inpatient E&M: 86251 Init Hosp L3
[2021-08-21] MEDS: Bisacodyl 5 MG Tablet 20 MG PO (08:55)
[2021-08-21] MEDS: 0.9% Saline Lock 10 ML Syringe IV (08:57)
[2021-08-21] MEDS: Electrolyte Solution/Peg's 4000 ML PO (10:11)
[2021-08-21] MEDS: Metoprolol(XL)Succ 100 MG Tablet PO (10:11)
[2021-08-21] MEDS: Tamsulosin HCl 0.4 MG Capsule PO (10:11)
[2021-08-21] MEDS: Sertraline 50 MG Tablet 25 MG PO (10:11)
--- NOTE | 2021-08-21 12:00 | CASEMGMT ---
RN FLOWER Face to Face with patient for initial transition planning/care coordination assessment. RN CM introduced self and role at [facility]. Patient lying in bed, alert and oriented. Patient willing to participate in assessment and is able to answer all questions appropriately. Care providers, pharmacy, and demographics verified. Patient wishes to discharge home with resumption of HHC through [facility]. Patient states he has no further needs or concerns at this time. CM to follow for discharge planning needs that may arise. PCP: Zenaida Specialists: Reji, industrial millwright Agueda Preferred Pharmacy: [facility], [facility] retail at discharge. Insurance: [place], [facility], [place] [facility] Prescription Benefit: yes Living Will/HPOA: yes, daughter Shayleesa Bundy LNOK: daughter, ex- Living Arrangements: Patient lives alone in a single story condo with no steps to enter the home. Patient states he is independent at home. Transportation: self, daughter, ex- DME/HHC: patient states he has shower bench, cane, rollator, grab bars, oxygen with portable concentrator through [facility] at 2lpm as needed. Patient states he has [facility] for nursing and therapy. Patient denies previous SNF. Disposition Plan: Patient to discharge home with resumption of HHC, family support, and follow-up plans in place. Marsha MAYER, RN, CM
[2021-08-21 12:41] LABS: Bedside Glucose 293 mg/dL (70-110)
[2021-08-21 14:00] LABS: Hemoglobin 8.2 g/dL (13.0-16.5); Mean Corp Hgb Conc 32.8 g/dL (32-36); Mean Corpuscular Hgb 29.4 pg (27.0-32.0); Mean Corpuscular Volume 89.6 fL (80-94); Mean Platelet Vol. 9.4 fl (6.2-12.0); Platelet Count 348 K/mm3 (150-450); RBC Distribution Width CV 16.8 % (11.6-14.6); RBC Distribution Width SD 54.1 fl (35.1-43.9); Red Blood Count 2.79 M/mm3 (4.6-6.2); White Blood Count 8.7 K/mm3 (4.4-11.0)
[2021-08-21 14:36] LABS: Anion Gap 11 (5-15); BUN 132 mg/dL (7-18); BUN/Creat Ratio 38.7 RATIO (10-20); Calcium,Total 8.3 mg/dL (8.5-10.1); Chloride 96 mmol/L (98-107); Creatinine, Serum 3.41 mg/dL (0.70-1.30); EST Glomerular Filtration Rate 18 mL/min (>60); Est Glom Filt Rate - Afr Amer 22 mL/min (>60); Estimated Creatinine Clearance 15.62 ml/min; Glucose 295 mg/dL (74-106); Potassium 3.3 mmol/L (3.5-5.1); Sodium Level 135 mmol/L (136-145)
[2021-08-21] MEDS: Potassium Chloride 10mEq/100mL 10 MEQ/100 ML IV.SOLN. 100 MEQ IV BOLUS ×2 (15:32→16:34)
--- NOTE | 2021-08-21 16:27 | PN.HOSP_ITS ---
Subjective Subjective Patient was seen and examined today in ICU, he is still having some liquid stools with some blood in them while he is prepping for his colonoscopy and EGD tomorrow. Patient's hemoglobin this afternoon was 8.2. Patient has no complaints of any abdominal pain, nausea or vomiting. Objective Data Objective Data Vital Signs: Vital Signs Temp Pulse Resp BP Pulse Ox 97.8 F 75 15 105/54 L 99 08/21/21 15:22 08/21/21 15:22 08/21/21 15:22 08/21/21 15:22 08/21/21 15:22 Oxygen Flow Rate (L/min) 2 Oxygen Delivery Method Room Air Weight: 71.3 kg Body Mass Index (BMI) 24.4 Intake & Output: Intake and Output for Last 24 Hours 08/19/21 08/20/21 08/21/21 23:59 23:59 23:59 Intake Total 500 / 560 2228 / 2228 Output Total 200 / 500 2000 / 2000 Balance 300 / 60 228 / 228 Lab / Micro Data Result Diagrams: 08/21/21 13:30 08/21/21 13:30 Labs: Laboratory Results - last 24 hr 08/20/21 18:50: WBC 7.3, RBC 1.52 L, Hgb 4.5 L*, Hct 14.5 L, MCV 95.4 H, MCH 29.6, MCHC 31.0 L, RDW Std Deviation 57.2 H, RDW Coeff of Anuradha 16.7 H, Plt Count 418, MPV 9.8, Immature Gran % (Auto) 1.200 H, Neut % (Auto) 70.9 H, Lymph % (Auto) 12.5 L, [place] % (Auto) 8.5, Eos % (Auto) 6.6 H, Baso % (Auto) 0.3, Absolute Neuts (auto) 5.1, Absolute Lymphs (auto) 0.91, Nucleated RBC % 0, Diff Path Review Jossy floyd, Platelet Estimate [facility], RBC Morphology N CHROM, Polychromasia RARE, Hypochromasia 1+, Anisocytosis 1+, Macrocytosis 1+, Target Cells RARE, Ovalocytes RARE, [place]ice Cells 1+ 08/20/21 18:50: PT 17.6 H, INR 1.5 08/20/21 18:50: Sodium 130 L, Potassium 4.6, Chloride 91 L, Carbon Dioxide 26.0, Anion Gap 13, BUN 158 H*, Creatinine 3.90 H, Estim Creat Clear Calc 13.65, Est GFR (MDRD) Af Amer 19 L, Est GFR (MDRD) Non-Af 16 L, BUN/Creatinine Ratio 40.5 H , Glucose 128 H, Calcium 9.0, Total Bilirubin 0.40, AST 43 H, ALT 20, Alkaline Phosphatase 118 H, Troponin I High Sens 31, Total Protein 7.0, Albumin 2.8 L, Globulin 4.2, Albumin/Globulin Ratio 0.7 L 08/20/21 18:50: Blood Type AB POSITIVE, Antibody Screen NEGATIVE 08/20/21 18:50: Crossmatch See Detail 08/20/21 18:50: Crossmatch See Detail 08/20/21 19:00: Urine Color Yellow, Urine Clarity Sl. Cloudy, Urine pH 5.0, Ur Specific [place] 1.010, Urine Protein Negative, Urine Glucose (UA) Normal, Urine Ketones Negative, Urine Occult Blood Negative, Urine Nitrite Negative, Urine Bilirubin Negative, Urine Urobilinogen Normal, Ur Leukocyte Esterase 25 H, Urine RBC 0 SEEN, Urine WBC 0-5 SEEN, Ur Squamous Epith Cells 0 SEEN, Urine Bacteria 0 SEEN, Urine Mucus 0 SEEN 08/20/21 22:00: Hgb 4.3 L*, Hct 14.4 L 08/20/21 23:42: POC Glucose 166 H 08/21/21 03:10: Sodium 133 L, Potassium 3.8, Chloride 95 L, Carbon Dioxide 28.0, Anion Gap 10, BUN 146 H*, Creatinine 3.59 H, Estim Creat Clear Calc 14.83, Est GFR (MDRD) Af Amer 21 L, Est GFR (MDRD) Non-Af 17 L, BUN/Creatinine Ratio 40.7 H , Glucose 144 H, Calcium 8.6 08/21/21 03:10: WBC 6.8, RBC 2.00 L, Hgb 5.8 L*, Hct 18.9 L, MCV 94.5 H, MCH 29.0, MCHC 30.7 L, RDW Std Deviation 51.8 H, RDW Coeff of Anuradha 15.6 H, Plt Count 317, MPV 9.4, Immature Gran % (Auto) 0.700, Neut % (Auto) 73.3 H, Lymph % (Auto) 12.1 L, Mcminn % (Auto) 8.0, Eos % (Auto) 5.2 H, Baso % (Auto) 0.7, Absolute Neuts (auto) 5.0, Absolute Lymphs (auto) 0.82 L, Nucleated RBC % 0, Differential Comment SCANNED, Diff Path Review May foll, Hypochromasia 2+ 08/21/21 12:34: POC Glucose 293 H 08/21/21 13:30: WBC 8.7, RBC 2.79 L, Hgb 8.2 L, Hct 25.0 L, MCV 89.6 D, MCH 29.4, MCHC 32.8 D, RDW Std Deviation 54.1 H, RDW Coeff of Anuradha 16.8 H, Plt Count 348, MPV 9.4 08/21/21 13:30: Sodium 135 L, Potassium 3.3 L, Chloride 96 L, Carbon Dioxide 28.0, Anion Gap 11, BUN 132 H*, Creatinine 3.41 H, Estim Creat Clear Calc 15.62, Est GFR (MDRD) Af Amer 22 L, Est GFR (MDRD) Non-Af 18 L, BUN/Creatinine Ratio 38.7 H, Glucose 295 H, Calcium 8.3 L Micro: Microbiology 08/21/21 10:31 Nasal Secretion SARS-CoV-2 Antigen (Rapid) - Final 08/20/21 19:45 Stool Stool Occult Blood (BRAD) - Final Occult Blood Positive Radiography Diagnostic Testing: Radiology Impression Chest X-Ray 08/20/21 18:42 IMPRESSION: Cardiomegaly without radiographic evidence of acute cardiopulmonary disease. at 1937 Reported and signed by: Benito Cedeño MD Electronically Signed: Benito Cedeño MD at 19:36 EST , Physical Exam Const alert, oriented x3, no apparent distress and healthy appearing General Appearance: cooperative, well kempt and well developed Orientation / Consciousness: awake, oriented to person, oriented to place and oriented to time HEENT normocephalic, head/scalp atraumatic and moist oral mucous membranes Head and Scalp: normocephalic Eyes PERRL, EOMs intact bilaterally and conjunctivae normal Neck nuchal rigidity, supple, no JVD, thyroid normal and no carotid bruits General: trachea midline Resp normal respiratory effort, no retractions, no use of accessory muscles and clear to auscultation bilaterally Auscultation: Negative for rales, rhonchi or wheezes Cardio regular rate, regular rhythm, S1 normal heart sound, S2 normal heart sound, no murmurs, no rub and no gallops GI normal to inspection, nondistended, normoactive bowel sounds, soft to palpation, non-tender and non-distended Extremity normal to inspection and no clubbing, cyanosis or edema Skin no rashes or lesions noted and skin turgor normal General Skin Exam: no breakdown Neuro oriented x3, CN's II-XII intact bilaterally, no focal motor deficits and no sensory deficits noted Sensorium / Orientation: awake and alert Speech: speech normal Psych affect normal Assessment & Plan Assessment/Plan (1) Upper GI bleed: PLAN: 1. Acute upper GI bleed with melanotic stool-patient will undergo an EGD and colonoscopy tomorrow, critical care is participating in his care while he is in the ICU, GI seeing patient #2 acute blood loss anemia secondary to #1-requiring blood transfusion-patient's hemoglobin this afternoon was 8.2, hemoglobin will continue to be monitored #3 chronic kidney disease stage IV-labs will be monitored #4 hypotension secondary to #1-patient was normotensive on his latest blood pressure, he was given blood due to his severe anemia. #5 hypokalemia-patient was given potassium replacement, labs will be monitored #6 Type 2 DM- blood sugars will be monitored, sliding scale insulin given #7 Hypothyroidism- patient on Synthroid #8 Chronic systolic heart failure-meds have been held due to hypotension, continue to monitor Charges/Coding Visit Charges Inpatient E&M: 62114 Subs Hosp L2
[2021-08-21 17:41] LABS: Bedside Glucose 92 mg/dL (70-110)
--- NOTE | 2021-08-21 18:01 | PN_ITS ---
Subjective Subjective Patient finished his prep but his stools were not clear. He is still prepping for a colonoscopy tomorrow. He receive 4 units of packed red blood cells. He has not seen any more bleeding.. His repeat H&H is 8.2 which is up from 4.8 Objective Data Objective Data Vital Signs: Vital Signs Temp Pulse Resp BP Pulse Ox 97.6 F L 73 16 97/53 L 94 08/21/21 16:38 08/21/21 17:07 08/21/21 16:38 08/21/21 16:38 08/21/21 16:38 Oxygen Flow Rate (L/min) 2 Oxygen Delivery Method Room Air Weight: 157 lb 3.033 oz Body Mass Index (BMI) 24.4 Intake & Output: Intake and Output for Last 24 Hours 08/19/21 08/20/21 08/21/21 23:59 23:59 23:59 Intake Total 500 / 560 2428 / 2428 Output Total 200 / 500 2200 / 2200 Balance 300 / 60 228 / 228 Lab / Micro Data Result Diagrams: 08/21/21 13:30 08/21/21 13:30 Labs: Laboratory Results - last 24 hr 08/20/21 18:50: WBC 7.3, RBC 1.52 L, Hgb 4.5 L*, Hct 14.5 L, MCV 95.4 H, MCH 29.6, MCHC 31.0 L, RDW Std Deviation 57.2 H, RDW Coeff of Anuradha 16.7 H, Plt Count 418, MPV 9.8, Immature Gran % (Auto) 1.200 H, Neut % (Auto) 70.9 H, Lymph % (Auto) 12.5 L, [place] % (Auto) 8.5, Eos % (Auto) 6.6 H, Baso % (Auto) 0.3, Absolut e Neuts (auto) 5.1, Absolute Lymphs (auto) 0.91, Nucleated RBC % 0, Diff Path Review Jossy floyd, Platelet Estimate [facility], RBC Morphology N CHROM, Polychromasia RARE, Hypochromasia 1+, Anisocytosis 1+, Macrocytosis 1+, Target Cells RARE, Ovalocytes RARE, [place] Cells 1+ 08/20/21 18:50: PT 17.6 H, INR 1.5 08/20/21 18:50: Sodium 130 L, Potassium 4.6, Chloride 91 L, Carbon Dioxide 26.0, Anion Gap 13, BUN 158 H*, Creatinine 3.90 H, Estim Creat Clear Calc 13.65, Est GFR (MDRD) Af Amer 19 L, Est GFR (MDRD) Non-Af 16 L, BUN/Creatinine Ratio 40.5 H , Glucose 128 H, Calcium 9.0, Total Bilirubin 0.40, AST 43 H, ALT 20, Alkaline Phosphatase 118 H, Troponin I High Sens 31, Total Protein 7.0, Albumin 2.8 L, Globulin 4.2, Albumin/Globulin Ratio 0.7 L 08/20/21 18:50: Blood Type AB POSITIVE, Antibody Screen NEGATIVE 08/20/21 18:50: Crossmatch See Detail 08/20/21 18:50: Crossmatch See Detail 08/20/21 19:00: Urine Color Yellow, Urine Clarity Sl. Cloudy, Urine pH 5.0, Ur Specific [place] 1.010, Urine Protein Negative, Urine Glucose (UA) Normal, Urine Ketones Negative, Urine Occult Blood Negative, Urine Nitrite Negative, Urine Bilirubin Negative, Urine Urobilinogen Normal, Ur Leukocyte Esterase 25 H, Urine RBC 0 SEEN, Urine WBC 0-5 SEEN, Ur Squamous Epith Cells 0 SEEN, Urine Bacteria 0 SEEN, Urine Mucus 0 SEEN 08/20/21 22:00: Hgb 4.3 L*, Hct 14.4 L 08/20/21 23:42: POC Glucose 166 H 08/21/21 03:10: Sodium 133 L, Potassium 3.8, Chloride 95 L, Carbon Dioxide 28.0, Anion Gap 10, BUN 146 H*, Creatinine 3.59 H, Estim Creat Clear Calc 14.83, Est GFR (MDRD) Af Amer 21 L, Est GFR (MDRD) Non-Af 17 L, BUN/Creatinine Ratio 40.7 H , Glucose 144 H, Calcium 8.6 08/21/21 03:10: WBC 6.8, RBC 2.00 L, Hgb 5.8 L*, Hct 18.9 L, MCV 94.5 H, MCH 29.0, MCHC 30.7 L, RDW Std Deviation 51.8 H, RDW Coeff of Anuradha 15.6 H, Plt Count 317, MPV 9.4, Immature Gran % (Auto) 0.700, Neut % (Auto) 73.3 H, Lymph % (Auto) 12.1 L, [place] % (Auto) 8.0, Eos % (Auto) 5.2 H, Baso % (Auto) 0.7, Absolute Neuts (auto) 5.0, Absolute Lymphs (auto) 0.82 L, Nucleated RBC % 0, Differential Comment SCANNED, Diff Path Review May foll, Hypochromasia 2+ 08/21/21 12:34: POC Glucose 293 H 08/21/21 13:30: WBC 8.7, RBC 2.79 L, Hgb 8.2 L, Hct 25.0 L, MCV 89.6 D, MCH 29.4, MCHC 32.8 D, RDW Std Deviation 54.1 H, RDW Coeff of Anuradha 16.8 H, Plt Count 348, MPV 9.4 08/21/21 13:30: Sodium 135 L, Potassium 3.3 L, Chloride 96 L, Carbon Dioxide 28.0, Anion Gap 11, BUN 132 H*, Creatinine 3.41 H, Estim Creat Clear Calc 15.62, Est GFR (MDRD) Af Amer 22 L, Est GFR (MDRD) Non-Af 18 L, BUN/Creatinine Ratio 38.7 H, Glucose 295 H, Calcium 8.3 L 08/21/21 17:36: POC Glucose 92 Micro: Microbiology 08/21/21 10:31 Nasal Secretion SARS-CoV-2 Antigen (Rapid) - Final 08/20/21 19:45 Stool Stool Occult Blood (BRAD) - Final Occult Blood Positive Radiography Diagnostic Testing: Radiology Impression Chest X-Ray 08/20/21 18:42 IMPRESSION: Cardiomegaly without radiographic evidence of acute cardiopulmonary disease. at 1937 Reported and signed by: Benito Cedeño MD Electronically Signed: Benito Cedeño MD at 19:36 EST , Physical Exam Const alert General Appearance: cooperative Orientation / Consciousness: oriented to person HEENT hearing grossly normal bilaterally Head and Scalp: normal to inspection Face and Sinus: face symmetric Nose: external nose normal Mouth: oral and palatal mucosa normal Eyes conjunctivae normal General Eye: normal appearance of both eyes Neck full ROM General: normal visual inspection Lymph Lymphatic: no lymphadenopathy noted Chest inspection of chest normal and palpation of chest normal Chest: symmetrical chest wall rise Resp normal respiratory effort Effort and Inspection: able to speak in complete sentences Cardio regular rate GI non-distended Percussion: normal to percussion Rectal Exam: deferred Neuro Speech: speech normal Gait (Neuro): normal gait Assessment & Plan Assessment/Plan (1) GI bleed: QUALIFIERS: GI bleed type/associated pathology: melena Qualified Code(s): K92.1 - Melena PLAN: Patient will undergo an upper and lower endoscopy tomorrow. Hopefully will be able to find out the etiology of his bleeding. Continue to monitor his hemoglobin. No anticoagulation or antiplatelet therapy. N.p.o. after midnight. Charges/Coding Visit Charges Inpatient E&M: 39724 Subs Hosp L2
--- NOTE | 2021-08-21 20:16 | NURSING ---
PANDEMIC DOCUMENTATION DATE: 08/20/21 TIME: 2100
[2021-08-21 20:44] LABS: Hematocrit 21.4 % (40-54); Hemoglobin 7.1 g/dL (13.0-16.5)
[2021-08-21 21:10] LABS: Bedside Glucose 124 mg/dL (70-110)
[2021-08-22] VITALS (28 sets, daily range): BP systolic 99–132; BP diastolic 47–101; PULSE 69–90; RESP 12–21; TEMP 36.4–36.8; O2SAT 93–100
[2021-08-22 00:35] LABS: Bedside Glucose 120 mg/dL (70-110)
[2021-08-22] MEDS: 0.9% Saline Lock 10 ML Syringe IV ×2 (04:03→13:06)
[2021-08-22] MEDS: Levothyroxine 75 MCG Tablet PO (04:04)
[2021-08-22 04:10] LABS: Absolute Neutrophil Count 6.2 X10^3/uL (2.0-7.7); Basophil# 0.05 X10^3/uL; Basophil% 0.6 % (0-1); Eosinophil# 0.17 X10^3/uL; Eosinophils% 2.1 % (0-5); Hematocrit 27.4 % (40-54); Hemoglobin 9.1 g/dL (13.0-16.5); Lymphocyte % 12.5 % (19-41); Mean Corp Hgb Conc 33.2 g/dL (32-36); Mean Corpuscular Hgb 29.4 pg (27.0-32.0); Mean Corpuscular Volume 88.4 fL (80-94); Mean Platelet Vol. 8.8 fl (6.2-12.0); Monocyte# 0.56 X10^3/uL; NRBC Flagged by Analyzer 0 % (0-5); Neutrophil # 6.16 X10^3/uL (2.7-7.7); Neutrophil % 77.2 % (47-70); Platelet Count 301 K/mm3 (150-450); RBC Distribution Width CV 16.7 % (11.6-14.6); RBC Distribution Width SD 52.3 fl (35.1-43.9)
[2021-08-22 04:48] LABS: Anion Gap 11 (5-15); BUN 122 mg/dL (7-18); BUN/Creat Ratio 40.1 RATIO (10-20); Calcium,Total 8.8 mg/dL (8.5-10.1); Chloride 96 mmol/L (98-107); Creatinine, Serum 3.04 mg/dL (0.70-1.30); EST Glomerular Filtration Rate 21 mL/min (>60); Est Glom Filt Rate - Afr Amer 26 mL/min (>60); Estimated Creatinine Clearance 17.52 ml/min; Glucose 106 mg/dL (74-106); Potassium 3.3 mmol/L (3.5-5.1); Sodium Level 136 mmol/L (136-145)
[2021-08-22] MEDS: Potassium Chloride 10mEq/100mL 10 MEQ/100 ML IV.SOLN. 100 MEQ IV BOLUS ×4 (06:21→09:17)
--- NOTE | 2021-08-22 06:55 | PN.CC_ITS ---
Assessment & Plan Assessment/Plan (1) GI bleed: QUALIFIERS: GI bleed type/associated pathology: melena Qualified Code(s): K92.1 - Melena (2) Orthostatic hypotension: (3) Congestive heart failure: PLAN: RECOMMENDATIONS: 1. Transition to daily H&H. Hemoglobin goal of at least 7 2. Await findings on endoscopies 3. Dose with Lasix as clinically indicated by hypoxia/Rales 4. Likely transition to twice daily Protonix after the current bag 5. Check orthostatics for discharge 6. Potential discharge versus transfer to PCU pending endoscopy findings 7. Will sign off from a critical care perspective if patient leaves the intensive care unit following endoscopy IMPRESSIONS: 1. Hypotension secondary to acute blood loss anemia secondary to upper GI bleed Patient with significant anemia on presentation. Patient does have a recent endoscopy showing an ulcer with gastritis. Unclear if patient will have a repeat endoscopy. There is a critical blood shortage at this time, so will shoot for hemoglobin goal of at least 7 instead of 8. Patient currently had a hemoglobin of 9. Will transition to daily H&H unless has clinical bleeding. No indication for pressors at this time. 2. Acute on chronic systolic congestive heart failure/history of PE/A. fib Patient with last known ejection fraction of approximately 15%. Patient has been showing signs of fluid overload associated with blood products, but has been responsive to Lasix therapy. Given repeated GI bleed, may need to discuss with cardiology about possible cessation of anticoagulation for short period of time to allow for healing. Defer to hospitalist. We will continue to dose Lasix as necessary during volume expansion. Would not schedule given his significant volume sensitivity. 3. CKD stage IV/diabetes mellitus type 2/advanced age/multiple hospitalizations Complicates care, management, recovery and prognosis. Patient does appear to be doing okay from a glycemic standpoint. Generalized weakness on presentation likely secondary to #1. Patient does have significant uremia, likely secondary to problem #1, but is not having any complications that would indicate renal replacement therapy. Subjective Subjective Patient with some hypotension overnight and an H&H on the lower side. Patient was transfused 1 unit of packed red blood cells. Patient has received a colon prep and tolerated this well. Patient is not reporting any abdominal pain, nausea or vomiting at this time. Patient is not reporting orthostatic symptoms, but has not been out of bed outside of bowel movements. Patient reportedly tentatively plan for colonoscopy and EGD at 11:15 AM Objective Data Objective Data Vital Signs: Vital Signs Temp Pulse Resp BP Pulse Ox 36.6 C 74 17 99/47 L 93 08/22/21 04:00 08/22/21 06:00 08/22/21 06:00 08/22/21 06:00 08/22/21 06:00 Oxygen Flow Rate (L/min) 2 Oxygen Delivery Method Room Air Weight: 70.7 kg Body Mass Index (BMI) 24.4 Intake & Output: Intake and Output for Last 24 Hours 08/20/21 08/21/21 08/22/21 23:59 23:59 23:59 Intake Total 500 / 560 2704 / 2704 534.83 / 534.83 Output Total 200 / 500 2425 / 2675 650 / 650 Balance 300 / 60 279 / 29 -115.17 / -115.17 Lab / Micro Data Result Diagrams: 08/22/21 04:00 08/22/21 04:00 Labs: Laboratory Results - last 24 hr 08/20/21 18:50: Crossmatch See Detail 08/21/21 05:51: POC Glucose 124 H 08/21/21 12:34: POC Glucose 293 H 08/21/21 13:30: WBC 8.7, RBC 2.79 L, Hgb 8.2 L, Hct 25.0 L, MCV 89.6 D, MCH 29.4, MCHC 32.8 D, RDW Std Deviation 54.1 H, RDW Coeff of Anuradha 16.8 H, Plt Count 348, MPV 9.4 08/21/21 13:30: Sodium 135 L, Potassium 3.3 L, Chloride 96 L, Carbon Dioxide 28.0, Anion Gap 11, BUN 132 H*, Creatinine 3.41 H, Estim Creat Clear Calc 15.62, Est GFR (MDRD) Af Amer 22 L, Est GFR (MDRD) Non-Af 18 L, BUN/Creatinine Ratio 38.7 H, Glucose 295 H, Calcium 8.3 L 08/21/21 17:36: POC Glucose 92 08/21/21 18:50: Crossmatch See Detail 08/21/21 20:35: Hgb 7.1 L, Hct 21.4 L 08/22/21 00:29: POC Glucose 120 H 08/22/21 04:00: WBC 8.0, RBC 3.10 L, Hgb 9.1 L, Hct 27.4 L, MCV 88.4, MCH 29.4, MCHC 33.2, RDW Std Deviation 52.3 H, RDW Coeff of Anuradha 16.7 H, Plt Count 301, MPV 8.8, Immature Gran % (Auto) 0.600, Neut % (Auto) 77.2 H, Lymph % (Auto) 12.5 L, [place] % (Auto) 7.0, Eos % (Auto) 2.1, Baso % (Auto) 0.6, Absolute Neuts (auto) 6.2, Absolute Lymphs (auto) 1.00, Nucleated RBC % 0 08/22/21 04:00: Sodium 136, Potassium 3.3 L, Chloride 96 L, Carbon Dioxide 29.0, Anion Gap 11, BUN 122 H*, Creatinine 3.04 H, Estim Creat Clear Calc 17.52, Est GFR (MDRD) Af Amer 26 L, Est GFR (MDRD) Non-Af 21 L, BUN/Creatinine Ratio 40.1 H , Glucose 106, Calcium 8.8 Micro: Microbiology 08/21/21 10:31 Nasal Secretion SARS-CoV-2 Antigen (Rapid) - Final 08/20/21 19:45 Stool Stool Occult Blood (BRAD) - Final Occult Blood Positive Physical Exam Const alert, oriented x3 and no apparent distress Constitutional Narrative: No conversational dyspnea HEENT head/scalp atraumatic and moist oral mucous membranes HEENT Narrative: No epistaxis noted Head and Scalp: normocephalic Eyes PERRL, EOMs intact bilaterally and conjunctivae normal Neck no lymphadenopathy, supple and no JVD Resp normal respiratory effort, no retractions, no use of accessory muscles and clear to auscultation bilaterally Cardio regular rate, no murmurs, no rub, no gallops and no JVD Rhythm: abnormal rhythm irregularly irregular GI normal to inspection, nondistended, normoactive bowel sounds, soft to palpation and non-tender Extremity normal to inspection, full ROM and no clubbing, cyanosis or edema Skin no rashes or lesions noted, no wounds and skin turgor normal Neuro CN's II-XII intact bilaterally Psych affect normal Charges/Coding Visit Charges Inpatient E&M: 10157 Subs Hosp L2
[2021-08-22 09:34] LABS: Pathologist Review Reviewed
[2021-08-22 09:47] LABS: Pathologist Review Reviewed
--- NOTE | 2021-08-22 10:30 | NURSING ---
off floor to endo at this time
--- NOTE | 2021-08-22 11:47 | OP.EGD_ITS ---
Patient Name: Jacques Nascimento Procedure Date: 08/22/2021 11:24 AM Date of : 1940 Age: 81 Procedure: Upper GI endoscopy Indications: Melena Providers: Saud Merida DO Medicines: See the Anesthesia note for documentation of the administered medications Patient Profile: This is an 81 year old male. Refer to note in patient chart for documentation of history and physical. Patient has symptoms. He is status post EGD for treatment of bleeding within the past three months. Complications: No immediate complications. Procedure: Pre-Anesthesia Assessment: - Prior to the procedure, a History and Physical was performed, and patient medications and allergies were reviewed. The patient is competent. The risks and benefits of the procedure and the sedation options and risks were discussed with the patient. All questions were answered and informed consent was obtained. Patient identification and proposed procedure were verified by the physician in the pre-procedure area. Mental Status Examination: alert and oriented. Airway Examination: normal oropharyngeal airway and neck mobility. Respiratory Examination: clear to auscultation. CV Examination: normal. Prophylactic Antibiotics: The patient does not require prophylactic antibiotics. Prior Anticoagulants: The patient has taken no previous anticoagulant or antiplatelet agents. ASA Grade Assessment: II - A patient with mild systemic disease. After reviewing the risks and benefits, the patient was deemed in satisfactory condition to undergo the procedure. The anesthesia plan was to use moderate sedation / analgesia (conscious sedation). Immediately prior to administration of medications, the patient was re-assessed for adequacy to receive sedatives. The heart rate, respiratory rate, oxygen saturations, blood pressure, adequacy of pulmonary ventilation, and response to care were monitored throughout the procedure. The physical status of the patient was re-assessed after the procedure. After obtaining informed consent, the endoscope was passed under direct vision. Throughout the procedure, the patient's blood pressure, pulse, and oxygen saturations were monitored continuously. The colonoscope was introduced through the mouth, and advanced to the proximal jejunum. The upper GI endoscopy was accomplished without difficulty. The patient tolerated the procedure well. Moderate Sedation: Moderate (conscious) sedation was administered by the endoscopy nurse and supervised by the endoscopist. The patient's oxygen saturation, heart rate, blood pressure and response to care were monitored. Total physician intraservice time was 15 minutes. Scope In: 11:29:22 AM Scope Out: 11:41:01 AM Total Procedure Duration Time 0 hours 11 minutes 39 seconds Findings: The examined esophagus was normal. A large hiatal hernia with a few Stevan ulcers was found. The proximal extent of the gastric folds (end of tubular esophagus) was 15 cm from the incisors. The hiatal narrowing was 40 cm from the incisors. Coagulation for hemostasis using argon plasma at 0.3 liters/minute and 20 garcias was successful. Estimated blood loss was minimal. Diffuse severely friable mucosa with contact bleeding was found in the entire examined stomach. Two 5 mm angiodysplastic lesions without bleeding were found in the second portion of the duodenum. Coagulation for bleeding prevention using argon plasma at 0.3 liters/minute and 20 garcias was successful. Estimated blood loss was minimal. Impression: - Normal esophagus. - Large hiatal hernia with a few Stevan ulcers. Treated with argon plasma coagulation (APC). - Friable gastric mucosa. 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 Treated with argon plasma coagulation (APC). - No specimens collected. Recommendation: - Return patient to [facility] for ongoing care. - Resume previous diet. - Continue present medications. Procedure Code(s): --- Professional --- 37156, Esophagogastroduodenoscopy, flexible, transoral; with control of bleeding, any method 06200, 59, Moderate sedation services provided by the same physician or other qualified health manager managed care performing the diagnostic or therapeutic service that the sedation supports, requiring the presence of an independent trained observer to assist in the monitoring of the patient's level of consciousness and physiological status; initial 15 minutes of intraservice time, patient age 5 years or older CPT copyright 2017 [employer]. All rights reserved. The codes documented in this report are preliminary and upon medical and scientific illustrator review may be revised to meet current compliance requirements. Saud Merida DO 08/22/2021 11:46:22 AM This report has been signed electronically. Number of Addenda: 1 Note Initiated On: 08/22/2021 11:24 AM Addendum Number: 1 Addendum Date: 04/08/2022 6:56:34 AM MAC was used for sedation during this procedure. Saud Merida DO 04/08/2022 6:56:38 AM This report has been signed electronically.
--- NOTE | 2021-08-22 11:47 | OP.CCLET_ITS ---
04/08/2022 Joseph Durand MD [address] [id number] Re : Upper GI endoscopy procedure for Jacques Nascimento Dear Dr. Durand This procedure was performed on Sunday, August 22, 2021. My impressions and recommendations are as follows: Impressions : - Normal esophagus. - Large hiatal hernia with a few Stevan ulcers. Treated with argon plasma coagulation (APC). - Friable gastric mucosa. 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 Treated with argon plasma coagulation (APC). - No specimens collected. Recommendations : - Return patient to [facility] for ongoing care. - Resume previous diet. - Continue present medications. My findings are described in the full procedure note, which is enclosed. If I can be of further assistance, please feel free to contact me at . Sincerely, Saud Merida, 08/22/2021 11:46:22 AM This report has been signed electronically.
--- NOTE | 2021-08-22 12:11 | OP.COLON_ITS ---
Patient Name: Jacques Nascimento Procedure Date: 08/22/2021 11:41 AM Date of : 1940 Age: 81 Procedure: Colonoscopy Indications: Hematochezia Providers: Saud Merida DO Medicines: See the Anesthesia note for documentation of the administered medications Patient Profile: This is an 81 year old male. Refer to note in patient chart for documentation of history and physical. Patient has symptoms. He is status post EGD for treatment of bleeding within the past three months. Last Colonoscopy: date unknown. Complications: No immediate complications. Procedure: Pre-Anesthesia Assessment: - Prior to the procedure, a History and Physical was performed, and patient medications and allergies were reviewed. The patient is competent. The risks and benefits of the procedure and the sedation options and risks were discussed with the patient. All questions were answered and informed consent was obtained. Patient identification and proposed procedure were verified by the physician in the pre-procedure area. Mental Status Examination: alert and oriented. Airway Examination: normal oropharyngeal airway and neck mobility. Respiratory Examination: clear to auscultation. CV Examination: normal. Prophylactic Antibiotics: The patient does not require prophylactic antibiotics. Prior Anticoagulants: The patient has taken no previous anticoagulant or antiplatelet agents. ASA Grade Assessment: II - A patient with mild systemic disease. After reviewing the risks and benefits, the patient was deemed in satisfactory condition to undergo the procedure. The anesthesia plan was to use moderate sedation / analgesia (conscious sedation). Immediately prior to administration of medications, the patient was re-assessed for adequacy to receive sedatives. The heart rate, respiratory rate, oxygen saturations, blood pressure, adequacy of pulmonary ventilation, and response to care were monitored throughout the procedure. The physical status of the patient was re-assessed after the procedure. After I obtained informed consent, the scope was passed under direct vision. Throughout the procedure, the patient's blood pressure, pulse, and oxygen saturations were monitored continuously. The colonoscope was introduced through the anus and advanced to the terminal ileum. The colonoscopy was performed without difficulty. The patient tolerated the procedure well. The quality of the bowel preparation was fair. Moderate Sedation: Moderate (conscious) sedation was administered by the endoscopy nurse and supervised by the endoscopist. The following parameters were monitored: oxygen saturation, heart rate, blood pressure, and response to care. Total physician intraservice time was 15 minutes. Scope In: 11:48:08 AM Scope Withdrawal Time 0 hours 9 minutes 3 seconds Scope Out: 12:05:46 PM Total Procedure Duration Time 0 hours 17 minutes 38 seconds Findings: The perianal and digital rectal examinations were normal. Multiple small and large-mouthed diverticula were found in the sigmoid colon and descending colon. There was no evidence of diverticular bleeding. A single medium-sized localized angiodysplastic lesion with bleeding was found in the ascending colon. Coagulation for hemostasis using argon plasma at 0.3 liters/minute and 20 garcias was successful. Estimated blood loss was minimal. The terminal ileum appeared normal. Impression: - Preparation of the colon was fair. - Moderate diverticulosis in the sigmoid colon and in the descending colon. There was no evidence of diverticular bleeding. - A single bleeding colonic angiodysplastic lesion. Treated with argon plasma coagulation (APC). - The examined portion of the ileum was normal. - No specimens collected. Recommendation: - Written discharge instructions were provided to the patient. - The signs and symptoms of potential delayed complications were discussed with the patient. - Patient has a contact number available for emergencies. - Return to normal activities tomorrow. - Resume previous diet. - Continue present medications. - No repeat colonoscopy due to age. Procedure Code(s): --- Professional --- 90986, Colonoscopy, flexible; with control of bleeding, any method 35269, 59, Moderate sedation services provided by the same physician or other qualified health morning caregiver performing the diagnostic or therapeutic service that the sedation supports, requiring the presence of an independent trained observer to assist in the monitoring of the patient's level of consciousness and physiological status; initial 15 minutes of intraservice time, patient age 5 years or older CPT copyright 2017 [employer]. All rights reserved. The codes documented in this report are preliminary and upon clerk cashier review may be revised to meet current compliance requirements. Saud Merida DO 08/22/2021 12:10:36 PM This report has been signed electronically. Number of Addenda: 1 Note Initiated On: 08/22/2021 11:41 AM Addendum Number: 1 Addendum Date: 04/08/2022 6:56:47 AM MAC was used for sedation during this procedure. Saud Merida DO 04/08/2022 6:56:51 AM This report has been signed electronically.
--- NOTE | 2021-08-22 12:11 | OP.CCLET_ITS ---
04/08/2022 Joseph Durand MD [address] [phone] Re : Colonoscopy procedure for Jacques Nascimento Dear Dr. Durand This procedure was performed on Sunday, August 22, 2021. My impressions and recommendations are as follows: Impressions : - Preparation of the colon was fair. - Moderate diverticulosis in the sigmoid colon and in the descending colon. There was no evidence of diverticular bleeding. - A single bleeding colonic angiodysplastic lesion. Treated with argon plasma coagulation (APC). - The examined portion of the ileum was normal. - No specimens collected. Recommendations : - Written discharge instructions were provided to the patient. - The signs and symptoms of potential delayed complications were discussed with the patient. - Patient has a contact number available for emergencies. - Return to normal activities tomorrow. - Resume previous diet. - Continue present medications. - No repeat colonoscopy due to age. My findings are described in the full procedure note, which is enclosed. If I can be of further assistance, please feel free to contact me at . Sincerely, Saud Merida, 08/22/2021 12:10:36 PM This report has been signed electronically.
[2021-08-22] MEDS: Metoprolol(XL)Succ 100 MG Tablet PO (13:02)
[2021-08-22] MEDS: Tamsulosin HCl 0.4 MG Capsule PO (13:02)
[2021-08-22] MEDS: Sertraline 50 MG Tablet 25 MG PO (13:02)
[2021-08-22 13:15] LABS: Bedside Glucose 119 mg/dL (70-110)
--- NOTE | 2021-08-22 13:21 | PCM.DC ---
Discharge Instructions Diet Discharge Diet: No restrictions Activity Discharge Activity: Return to Normal Activity Weight Bearing Status: Full weight bearing Follow Up Care Test Results: Test results from this visit will be discussed in further detail at your follow-up appointment, if applicable. Discharge Plan Admission Admit Date/Time: 08/20/21 20:24 Primary Reason for Your Visit: upper gi bleeding Attending Provider: Merlin Chance Primary Care Provider: Joseph Durand Consulting Providers: Carlos Barrientos ; Saud Merida Discharge Orders/Prescriptions Prescriptions: New torsemide 20 mg tablet 40 mg PO BID Qty: 120 RF: 0 pantoprazole [Protonix] 40 mg tablet,delayed release (DR/EC) 40 mg PO BID Qty: 60 RF: 0 Continued metoprolol succinate 100 mg Tablet Extended Release 24 Hr 100 mg PO DAILY RF: 0 spironolactone 25 mg Tablet 25 mg PO DAILY RF: 0 levothyroxine 75 mcg Tablet 75 mcg PO DAILY RF: 0 potassium chloride 20 mEq Tablet,Er Particles/Crystals 20 meq PO BID RF: 0 tamsulosin 0.4 mg Capsule 0.4 mg PO DAILY RF: 0 sertraline 25 mg Tablet 25 mg PO DAILY RF: 0 Men's 50 Plus Multivitamin 400-20-370 mcg Tablet 1 tab PO DAILY RF: 0 B12 Active 1,000 mcg Tablet,Chewable 1,000 mcg PO DAILY RF: 0 ferrous sulfate 325 mg (65 mg iron) tablet 325 mg PO DAILY Qty: 30 RF: 0 sucralfate [Carafate] 1 gram tablet 1 g PO .QID 30 Days RF: 0 gabapentin 600 mg Tablet 600 mg PO BID Qty: 0 RF: 0 Discontinued metolazone 5 mg Tablet 5 mg PO MOWEFR RF: 0 torsemide 100 mg Tablet 100 mg PO BID RF: 0 pantoprazole 40 mg Tablet,Delayed Release (Dr/Ec) 40 mg PO DAILY RF: 0 Eliquis 2.5 mg Tablet 2.5 mg PO BID RF: 0 Hold Instructions: Resume on 07/14/21. Resume Eliquis on 07/14/21. Entresto 49-51 mg Tablet 1 tab PO BID RF: 0 metformin 500 mg tablet extended release 24 hr 500 mg PO DAILY RF: 0 Referrals / Follow Up: Joseph Durand MD [Primary Care Provider] - Within 1 Week Friend,Saud, DO [STAFF PHYSICIAN] - See Referral Note (in two weeks) Disposition Disposition (needs filled in before D/C Order can be placed): Home Health Service
--- NOTE | 2021-08-22 15:00 | PCM.DC.SUM ---
Providers Date of Admission: 08/20/21 Date of Discharge: 08/22/21 Primary Care Physician: Dr. 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 Instructor / Pulmonary Medicine Routine Consulting Provider: Carlos Barrientos Reason for Consult: ABLA EMERGENT Consult: No Notified: Yes Date Notified: 08/20/21 Time Notified: 20:34 Method of Notification: Verbal Method of Consult:: In-Person Reason For Visit: ABLA Diagnosis Discharge Diagnosis (1) GI bleed: Status: Acute Code(s): K92.2 - Gastrointestinal hemorrhage, unspecified Qualifiers: GI bleed type/associated pathology: melena Qualified Code(s): K92.1 - Melena (2) Orthostatic hypotension: Status: Acute Code(s): I95.1 - Orthostatic hypotension (3) Congestive heart failure: Status: Acute Code(s): I50.9 - Heart failure, unspecified Plan: 1. 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 Medications at Discharge Home Medications B12 Active 1,000 mcg PO DAILY 06/28/21 Men's 50 Plus Multivitamin 1 tab PO DAILY 06/28/21 levothyroxine 75 mcg PO DAILY 06/28/21 metoprolol succinate 100 mg PO DAILY 06/28/21 potassium chloride 20 meq PO BID 06/28/21 sertraline 25 mg PO DAILY 06/28/21 spironolactone 25 mg PO DAILY 06/28/21 tamsulosin 0.4 mg PO DAILY 06/28/21 ferrous sulfate 325 mg PO DAILY #30 tab 07/01/21 sucralfate [Carafate] 1 g PO .QID 30 Days tab 07/01/21 gabapentin 600 mg PO BID #0 tab 08/22/21 pantoprazole [Protonix] 40 mg PO BID #60 tab 08/22/21 torsemide 40 mg PO BID #120 tab 08/22/21 Hospital Course Operations None Procedures Colonoscopy and EGD Summary of Care Provided Minutes Spent on Discharge: 32 Hospital Course: This 81-year-old white male was seen in the emergency room at [facility] with generalized weakness and black stools, he stated he had seen black stools for approximately a week. Patient was taking Eliquis as an outpatient. Work-up in the emergency room included labs which showed a hemoglobin of 4.5, patient's creatinine was elevated at 3.9, BUN was 158, sodium was 130. Patient was admitted to ICU, he was transfused packed red blood cells and underwent consultation by GI. Patient's hemoglobin was stabilized, initially he was hypotensive but with the administration of blood and fluids became normotensive. Patient underwent an EGD and a colonoscopy which showed evidence of diverticulosis in the colon without bleeding on his colonoscopy, EGD showed the presence of some ulcers in the distal esophagus, these were treated and there was also noted to be areas in the duodenum which appeared to be areas of angiodysplasia. Patient did well during his hospitalization. He was also seen by critical care during his stay in the ICU. On 08/22/2021, patient was seen and examined: On examination he appeared in good health and spirits. Vital signs as documented. Skin warm and dry and without overt rashes. Neck without JVD, neck was supple, trachea midline, thyroid was normal. Lungs clear bilaterally, normal air movement was noted. Heart exam notable for regular rhythm, normal sounds and absence of murmurs, rubs or gallops. Abdomen unremarkable and without evidence of organomegaly, masses, or abdominal aortic enlargement. Bowel sounds are present, abdomen is not distended. Extremities nonedematous, no cyanosis was noted, no clubbing was noted. Neuro: Cranial nerves II through XII are grossly intact, no focal motor deficits were noted, sensation to light touch and pinprick intact, motor exam 5/5 throughout. Psych: Patient is alert and oriented x3, he does not appear anxious or depressed, he does not appear agitated. On 08/22/2021, patient was seen and examined and felt to be stable for discharge home Weight / BMI Weight Weight: 70.7 kg Body Mass Index (BMI) 24.4 ABG / Lab / Microbiology Data Result Diagrams: 08/22/21 04:00 08/22/21 04:00 Laboratory: Laboratory Results - last 24 hr 08/20/21 18:50: Diff Path Review Reviewed 08/20/21 18:50: Crossmatch See Detail 08/21/21 03:10: Diff Path Review Reviewed 08/21/21 05:51: POC Glucose 124 H 08/21/21 17:36: POC Glucose 92 08/21/21 18:50: Crossmatch See Detail 08/21/21 20:35: Hgb 7.1 L, Hct 21.4 L 08/22/21 00:29: POC Glucose 120 H 08/22/21 04:00: WBC 8.0, RBC 3.10 L, Hgb 9.1 L, Hct 27.4 L, MCV 88.4, MCH 29.4, MCHC 33.2, RDW Std Deviation 52.3 H, RDW Coeff of Anuradha 16.7 H, Plt Count 301, MPV 8.8, Immature Gran % (Auto) 0.600, Neut % (Auto) 77.2 H, Lymph % (Auto) 12.5 L, Rice % (Auto) 7.0, Eos % (Auto) 2.1, Baso % (Auto) 0.6, Absolute Neuts (auto) 6.2, Absolute Lymphs (auto) 1.00, Nucleated RBC % 0 08/22/21 04:00: Sodium 136, Potassium 3.3 L, Chloride 96 L, Carbon Dioxide 29.0, Anion Gap 11, BUN 122 H*, Creatinine 3.04 H, Estim Creat Clear Calc 17.52, Est GFR (MDRD) Af Amer 26 L, Est GFR (MDRD) Non-Af 21 L, BUN/Creatinine Ratio 40.1 H, Glucose 106, Calcium 8.8 08/22/21 13:00: POC Glucose 119 H Microbiology: Microbiology 08/21/21 10:31 Nasal Secretion SARS-CoV-2 Antigen (Rapid) - Final 08/20/21 19:45 Stool Stool Occult Blood (BRAD) - Final Occult Blood Positive D/C Instructions Discharge Diet: No restrictions Weight Bearing Status: Full weight bearing Meaningful Use Info Meaningful Use Diagnoses (Choose all that apply): None applicable Discharge Plan Admission Admit Date/Time: 08/20/21 20:24 Primary Reason for Your Visit: upper gi bleeding Attending Provider: Merlin Chance Primary Care Provider: Joseph Durand Consulting Providers: Carlos Barrientos ; Saud Merida Discharge Orders/Prescriptions Prescriptions: New torsemide 20 mg tablet 40 mg PO BID Qty: 120 RF: 0 pantoprazole [Protonix] 40 mg tablet,delayed release (DR/EC) 40 mg PO BID Qty: 60 RF: 0 Continued metoprolol succinate 100 mg Tablet Extended Release 24 Hr 100 mg PO DAILY RF: 0 spironolactone 25 mg Tablet 25 mg PO DAILY RF: 0 levothyroxine 75 mcg Tablet 75 mcg PO DAILY RF: 0 potassium chloride 20 mEq Tablet,Er Particles/Crystals 20 meq PO BID RF: 0 tamsulosin 0.4 mg Capsule 0.4 mg PO DAILY RF: 0 sertraline 25 mg Tablet 25 mg PO DAILY RF: 0 Men's 50 Plus Multivitamin 400-20-370 mcg Tablet 1 tab PO DAILY RF: 0 B12 Active 1,000 mcg Tablet,Chewable 1,000 mcg PO DAILY RF: 0 ferrous sulfate 325 mg (65 mg iron) tablet 325 mg PO DAILY Qty: 30 RF: 0 sucralfate [Carafate] 1 gram tablet 1 g PO .QID 30 Days RF: 0 gabapentin 600 mg Tablet 600 mg PO BID Qty: 0 RF: 0 Discontinued metolazone 5 mg Tablet 5 mg PO MOWEFR RF: 0 torsemide 100 mg Tablet 100 mg PO BID RF: 0 pantoprazole 40 mg Tablet,Delayed Release (Dr/Ec) 40 mg PO DAILY RF: 0 Eliquis 2.5 mg Tablet 2.5 mg PO BID RF: 0 Hold Instructions: Resume on 07/14/21. Resume Eliquis on 07/14/21. Entresto 49-51 mg Tablet 1 tab PO BID RF: 0 metformin 500 mg tablet extended release 24 hr 500 mg PO DAILY RF: 0 Referrals / Follow Up: Joseph Durand MD [Primary Care Provider] - Within 1 Week Saud Merida DO [STAFF PHYSICIAN] - See Referral Note (in two weeks) Disposition Disposition (needs filled in before D/C Order can be placed): Home Health Service Charges/Coding Visit Charges Inpatient E&M: 81155 Disch Hosp
--- NOTE | 2021-08-22 15:49 | CASEMGMT ---
Addendum entered by Glenroy Elizabeth 08/22/21 15:54: Correction: JAIMIE CRENSHAW spoke w/Madison @ [facility] and informed her pt has been discharged home. Original Note: JAIMIE CRENSHAW NOTE: Pt has been discharged home. TC to [facility]. No answer. VM left to notify that pt has been discharged home today. TC also placed to [facility] main office and spoke w/Jamila to inform her of same. Discharge instructions and summary and GONZALO order faxed to [facility] at this time. Frankie MAYER RN, CM
== END 2021-08-22 14:50 | disposition home health service (06) | DRG 380 ==
LOC: ED 20:37 → ICU 08-21 03:06
PROVIDERS: Internal Medicine Critical Care Medicine; Internal Medicine Gastroenterology; Nurse Practitioner Family; Admitting Provider Hospitalist; Emergency Provider Student in an Organized Health Care Education/Training Program; PCP Family Medicine; Visit Provider Internal Medicine
PROC: 0DJD8ZZ Inspection of Lower Intestinal Tract, Via Natural or Artificial Opening Endoscopic (ICD-10-PCS; CPT 45378; principal; 2021-08-22 11:10)
DX: K22.11 Ulcer of esophagus with bleeding (principal); I50.23 Acute on chronic systolic (congestive) heart failure; N17.9 Acute kidney failure, unspecified; N18.4 Chronic kidney disease, stage 4 (severe); I13.0 Hypertensive heart and chronic kidney disease with heart failure and stage 1 through stage 4 chronic kidney disease, or unspecified chronic kidney disease; D62 Acute posthemorrhagic anemia; K29.71 Gastritis, unspecified, with bleeding; K31.811 Angiodysplasia of stomach and duodenum with bleeding; E11.21 Type 2 diabetes mellitus with diabetic nephropathy; E11.22 Type 2 diabetes mellitus with diabetic chronic kidney disease; I48.91 Unspecified atrial fibrillation; E11.65 Type 2 diabetes mellitus with hyperglycemia; D63.1 Anemia in chronic kidney disease; K44.9 Diaphragmatic hernia without obstruction or gangrene; I95.1 Orthostatic hypotension; E03.9 Hypothyroidism, unspecified; K57.30 Diverticulosis of large intestine without perforation or abscess without bleeding; E87.6 Hypokalemia; Z79.01 Long term (current) use of anticoagulants; Z95.810 Presence of automatic (implantable) cardiac defibrillator
CPT/HCPCS: 71045; 80048; 80053; 81001; 82274; 82962; 84484; 85014; 85018; 85025; 85027; 85610; 86850; 86900; 86901; 86920; 87426; 93005; 97162; 97166; 99285; J7040; P9016; A4216; J1940; J2405

== ENCOUNTER 2021-08-31 12:10 | Outpatient (CLI) | payer OTHER, MEDICARE, SELFPAY ==
[2021-08-31 15:14] LABS: Absolute Lymphocyte Count 1.08 X10^3/uL (0.83-4.51); Absolute Neutrophil Count 3.8 X10^3/uL (2.0-7.7); Basophil# 0.09 X10^3/uL; Basophil% 1.4 % (0-1); Eosinophil# 0.53 X10^3/uL; Eosinophils% 8.4 % (0-5); Hematocrit 31.8 % (40-54); Hemoglobin 10.1 g/dL (13.0-16.5); Lymphocyte # 1.08 X10^3/ul (0.83-4.51); Lymphocyte % 17.2 % (19-41); Mean Corp Hgb Conc 31.8 g/dL (32-36); Mean Corpuscular Hgb 29.4 pg (27.0-32.0); Mean Corpuscular Volume 92.4 fL (80-94); Mean Platelet Vol. 9.8 fl (6.2-12.0); Monocyte# 0.74 X10^3/uL; Monocyte% 11.8 % (0-10); NRBC Flagged by Analyzer 0 % (0-5); Neutrophil # 3.82 X10^3/uL (2.7-7.7); Neutrophil % 60.7 % (47-70); Platelet Count 320 K/mm3 (150-450); RBC Distribution Width CV 14.6 % (11.6-14.6); RBC Distribution Width SD 49.4 fl (35.1-43.9); Red Blood Count 3.44 M/mm3 (4.6-6.2); White Blood Count 6.3 K/mm3 (4.4-11.0)
== END 2021-08-31 23:59 | disposition home or self-care (01) ==
LOC: MFPLAB 12:19
PROVIDERS: PCP Family Medicine; Referring Provider Family Medicine; Visit Provider Family Medicine
DX: D64.9 Anemia, unspecified (principal)
CPT/HCPCS: 36415; 85025

== ENCOUNTER 2021-10-25 16:00 | Outpatient (CLI) | payer MEDICARE, OTHER, SELFPAY ==
[2021-10-25 17:55] LABS: ALB/GLOB Ratio 0.9 RATIO (0.9-2.4); AST(SGOT) 25 U/L (15-37); Alanine Aminotransfer ALT/SGPT 25 U/L (16-61); Albumin, Serum 3.6 g/dL (3.2-5.0); Alkaline Phosphatase 108 U/L (45-117); Anion Gap 6 (5-15); BUN 62 mg/dL (7-18); BUN/Creat Ratio 21.8 RATIO (10-20); Calcium,Total 8.7 mg/dL (8.5-10.1); Chloride 97 mmol/L (98-107); Cholesterol 219 mg/dL (200); Creatinine, Serum 2.84 mg/dL (0.70-1.30); EST Glomerular Filtration Rate 23 mL/min (>60); Est Glom Filt Rate - Afr Amer 28 mL/min (>60); Free T3 1.6 pg/mL (2.18-3.98); Glucose 140 mg/dL (74-106); High Density Lipoprotein 44 mg/dL; Potassium 3.8 mmol/L (3.5-5.1); Protein, Total 7.6 g/dL (6.4-8.2); Sodium Level 137 mmol/L (136-145); T4 Free Direct 0.88 ng/dL (0.76-1.46); Thyroid Stim Hormone (TSH) 2.36 uIU/mL (0.358-3.74); Triglycerides 190 mg/dL; Very Low Density Lipoprotein 38 mg/dL (5-40)
== END 2021-10-25 23:59 | disposition home or self-care (01) ==
LOC: MFPLAB 16:06
PROVIDERS: PCP Family Medicine; Referring Provider Family Medicine; Visit Provider Family Medicine
DX: E78.5 Hyperlipidemia, unspecified (principal); E03.9 Hypothyroidism, unspecified
CPT/HCPCS: 36415; 80053; 80061; 84439; 84443; 84481

== ENCOUNTER → 2022-01-30 | Outpatient (CLI) | payer MEDICARE, OTHER, SELFPAY ==
--- NOTE | 2022-01-30 12:36 | RAD_ITS ---
STUDY: X-RAY - LUMBAR SPINE REASON FOR EXAM: Male, 81 years old. PAIN TECHNIQUE: 3 view(s) of the lumbar spine were obtained. COMPARISON: 06/12/2014 CT abdomen and pelvis FINDINGS: Normal lumbar lordosis. Degenerative moderate levoscoliotic curve of the thoracic O lumbar spine is noted. There is a normal alignment of the vertebrae. There is generalized demineralization of the vertebral bodies. There is a compression deformity along the superior endplate of L4 which is likely chronic though age indeterminate. Multilevel disc degenerative changes are noted. Multilevel facet arthropathy present. There is atherosclerotic calcification of the abdominal aorta without a demonstrated aneurysm. RAD/Lumbar Spine 2 or 3 Views IMPRESSION: Diffuse degenerative changes with age indeterminate compression deformity along the superior endplate of L4, continued back pain recommend MRI imaging for further assessment. Electronically Signed: Tommy Christian DO at 18:13 EDT ,
== END | disposition home or self-care (01) ==
LOC: RAD 12:24
PROVIDERS: PCP Family Medicine; Referring Provider Anesthesiology Pain Medicine; Visit Provider Anesthesiology Pain Medicine
DX: M47.816 Spondylosis without myelopathy or radiculopathy, lumbar region (principal); I70.0 Atherosclerosis of aorta
CPT/HCPCS: 72100

== ENCOUNTER → 2022-03-05 | Outpatient (CLI) | payer MEDICARE, OTHER, SELFPAY ==
[2022-03-05 11:30] VITALS: BP 130/60; PULSE 85; RESP 14; O2SAT 99
--- NOTE | 2022-03-05 11:30 | MRI_ITS ---
STUDY: MRI LUMBAR SPINE WITHOUT CONTRAST REASON FOR EXAM: Male, 81 years old. RADICULOPATHY TECHNIQUE: Standardized fat and water weighted pulse sequences were obtained in the sagittal and axial planes. COMPARISON: None FINDINGS: STUDY: MRI LUMBAR SPINE WITH AND WITHOUT CONTRAST REASON FOR EXAM: Male, 81 years old. RADICULOPATHY TECHNIQUE: Standardized fat and water weighted pulse sequences were obtained in the sagittal and axial planes. was administered for the contrast portion of the examination. COMPARISON: None FINDINGS: Straightening of the normal alignment of the columns of the lumbar spine is visualized. Subtle retrolisthesis of L4 over L5 is seen. Depression of the superior endplate of the L4 vertebral body with linear bands of the low signal visualized in the upper L4 vertebral body. T2 prolongation visualized at this level consistent with acute compression fracture of the L4 vertebral body. Extension of the T2 prolongation is visualized into the left pedicle seen on axial series 4 image 4 and to a lesser extent into the right pedicle seen on sagittal series 4 image 11. The remaining lumbar vertebral bodies demonstrate no evidence of compression deformity, multilevel degenerative endplate changes visualized. No evidence of T2 prolongation is visualized visualized on the STIR sequence to suggest acute fracture, edema or infiltrative process. The cord terminates at the level of the L1-L2 intervertebral disc space, the terminal nerve roots demonstrate no evidence of thickening or clumping to suggest arachnoiditis. Disc desiccation visualized throughout the lumbar vertebral bodies with decreased intervertebral disc height seen most prominent at L5-S1 Normal visualized paraspinous soft tissue structures. Limited evaluation of the abdominal soft tissues is unremarkable. Simple cyst visualized in the anterior aspect of the midpole of the left kidney. L1-2: Degenerative disc changes with hypertrophic changes in the facet joints and ligamentum flavum, no significant narrowing of the spinal canal is visualized at this level, mild narrowing of bilateral neuroforamina seen at this level. L2-3: Right lateral disc bulge with hypertrophic changes in the facet joints and ligamentum flavum visualized at this level, mild narrowing of the spinal canal, moderate narrowing of the right neural foramina and mild narrowing of the left neuroforamina is seen at this level. L3-4: Circumferential disc bulges hypertrophic changes in the facet joints and ligamentum flavum, severe narrowing of the spinal canal with moderate to severe narrowing of the right neural foramina and moderate to severe narrowing of the left neuroforamina seen at this level. L4-5: Circumferential disc bulge with a left lateral component, hypertrophic changes visualized in the facet joints and ligamentum flavum, severe narrowing of the spinal canal with moderate narrowing of the right neural foramina and severe narrowing of the left neuroforamina suggested at this level. L5-S1: Circumferential disc bulges hypertrophic changes in the facet joints and ligamentum flavum visualized. Moderate narrowing of the spinal canal with severe narrowing of the right neural foramina and moderate narrowing of the left neuroforamina seen at this level. MRI/Spine Lumbar (Routine) IMPRESSION: Acute compression fracture of the L4 vertebral body extension of the fracture planes visualized into the left pedicle. Multilevel degenerative intervertebral disc disease visualized most prominent at L4-L5, L3-L4 and L5-S1.. Electronically Signed: Phu Lezama MD at 15:22 EDT ,
[2022-03-05 11:41] VITALS: BP 124/61; PULSE 85; RESP 14; O2SAT 100
[2022-03-05 11:55] VITALS: BP 117/62; PULSE 85; RESP 14; O2SAT 98
== END | disposition home or self-care (01) ==
LOC: MRI 10:54
PROVIDERS: PCP Family Medicine; Visit Provider Anesthesiology Pain Medicine
DX: M54.16 Radiculopathy, lumbar region (principal)
CPT/HCPCS: 72148

== ENCOUNTER → 2022-05-16 | Outpatient (CLI) | payer MEDICARE, OTHER, SELFPAY ==
[2022-05-16 18:27] LABS: Microalbumin:Creatinine Ratio 16.7 mg/g CRE (<30 mg/g CRE)
[2022-05-16 18:30] LABS: Anion Gap 10 (5-15); BUN 69 mg/dL (7-18); BUN/Creat Ratio 22.8 RATIO (10-20); Chloride 98 mmol/L (98-107); Cholesterol 149 mg/dL (200); Creatinine, Serum 3.03 mg/dL (0.70-1.30); EST Glomerular Filtration Rate 21 mL/min (>60); Est Glom Filt Rate - Afr Amer 26 mL/min (>60); Free T3 1.5 pg/mL (2.18-3.98); Glucose 147 mg/dL (74-106); High Density Lipoprotein 33 mg/dL; PSA,Total - Annual Screen 0.33 ng/mL (0.00-4.00); Potassium 3.8 mmol/L (3.5-5.1); Sodium Level 135 mmol/L (136-145); T4 Free Direct 0.98 ng/dL (0.76-1.46); Thyroid Stim Hormone (TSH) 1.79 uIU/mL (0.358-3.74); Triglycerides 271 mg/dL; Very Low Density Lipoprotein 54 mg/dL (5-40)
== END | disposition home or self-care (01) ==
LOC: MFPLAB 15:55
PROVIDERS: PCP Family Medicine; Referring Provider Family Medicine; Visit Provider Family Medicine
DX: E11.9 Type 2 diabetes mellitus without complications (principal); E03.9 Hypothyroidism, unspecified; Z12.5 Encounter for screening for malignant neoplasm of prostate
CPT/HCPCS: 36415; 80048; 80061; 82043; 82570; 84153; 84439; 84443; 84481; G0103

== ENCOUNTER → 2022-08-26 | Outpatient (CLI) | payer MEDICARE, OTHER, SELFPAY ==
[2022-08-26 18:21] LABS: Anion Gap 11 (5-15); BUN 55 mg/dL (7-18); BUN/Creat Ratio 18.5 RATIO (10-20); Calcium,Total 8.9 mg/dL (8.5-10.1); Chloride 99 mmol/L (98-107); Cholesterol 143 mg/dL (200); Creatinine, Serum 2.98 mg/dL (0.70-1.30); EST Glomerular Filtration Rate 22 mL/min (>60); Est Glom Filt Rate - Afr Amer 26 mL/min (>60); Glucose 156 mg/dL (74-106); High Density Lipoprotein 32 mg/dL; Potassium 3.7 mmol/L (3.5-5.1); Sodium Level 138 mmol/L (136-145); T3 Total - Triiodothyronine 0.52 ng/mL (0.6-1.81); T4 Free Direct 0.97 ng/dL (0.76-1.46); Thyroid Stim Hormone (TSH) 2.24 uIU/mL (0.358-3.74); Triglycerides 370 mg/dL; Very Low Density Lipoprotein 74 mg/dL (5-40)
[2022-08-27 16:25] LABS: Free T3 1.5 pg/mL (2.18-3.98)
== END | disposition home or self-care (01) ==
LOC: MFPLAB 16:59
PROVIDERS: PCP Family Medicine; Visit Provider Family Medicine
DX: E03.9 Hypothyroidism, unspecified (principal); I10 Essential (primary) hypertension
CPT/HCPCS: 36415; 80048; 80061; 84439; 84443; 84480; 84481

== ENCOUNTER → 2023-03-04 | Outpatient (CLI) | payer MEDICARE, OTHER, SELFPAY ==
[2023-03-04 10:44] LABS: Anion Gap 7 (5-15); BUN 35 mg/dL (7-18); BUN/Creat Ratio 14.5 RATIO (10-20); Calcium,Total 8.8 mg/dL (8.5-10.1); Chloride 101 mmol/L (98-107); Cholesterol 287 mg/dL (200); Creatinine, Serum 2.41 mg/dL (0.70-1.30); EST Glomerular Filtration Rate 27 mL/min (>60); Est Glom Filt Rate - Afr Amer 33 mL/min (>60); Glucose 173 mg/dL (74-106); High Density Lipoprotein 27 mg/dL; Potassium 3.6 mmol/L (3.5-5.1); Sodium Level 137 mmol/L (136-145); Triglycerides 576 mg/dL
== END | disposition home or self-care (01) ==
LOC: MFPLAB 09:19
PROVIDERS: PCP Family Medicine; Visit Provider Family Medicine
DX: E11.9 Type 2 diabetes mellitus without complications (principal)
CPT/HCPCS: 36415; 80048; 80061

== ENCOUNTER → 2023-06-02 | Outpatient (CLI) | payer MEDICARE, OTHER, SELFPAY ==
[2023-06-02 18:32] LABS: ALB/GLOB Ratio 1.1 RATIO (0.9-2.4); AST(SGOT) 17 U/L (15-37); Alanine Aminotransfer ALT/SGPT 30 U/L (16-61); Albumin, Serum 3.8 g/dL (3.2-5.0); Alkaline Phosphatase 136 U/L (45-117); Anion Gap 10 (5-15); BUN 50 mg/dL (7-18); BUN/Creat Ratio 19.8 RATIO (10-20); Calcium,Total 8.3 mg/dL (8.5-10.1); Chloride 101 mmol/L (98-107); Cholesterol 181 mg/dL (200); Creatinine, Serum 2.53 mg/dL (0.70-1.30); EST Glomerular Filtration Rate 26 mL/min (>60); Est Glom Filt Rate - Afr Amer 31 mL/min (>60); Globulin 3.5 g/dL (2.2-4.2); Glucose 162 mg/dL (74-106); High Density Lipoprotein 37 mg/dL; Potassium 3.8 mmol/L (3.5-5.1); Protein, Total 7.3 g/dL (6.4-8.2); Sodium Level 138 mmol/L (136-145); Triglycerides 265 mg/dL; Very Low Density Lipoprotein 53 mg/dL (5-40)
== END | disposition home or self-care (01) ==
LOC: MFPLAB 14:43
PROVIDERS: PCP Family Medicine; Visit Provider Family Medicine
DX: I10 Essential (primary) hypertension (principal); Z12.5 Encounter for screening for malignant neoplasm of prostate
CPT/HCPCS: 36415; 80053; 80061; 84153; G0103

== ENCOUNTER → 2023-08-29 | Outpatient (CLI) | payer MEDICARE, OTHER, SELFPAY ==
--- NOTE | 2023-08-29 14:09 | RAD_ITS ---
EXAM: XR RIGHT KNEE COMPLETE, 4 OR MORE VIEWS CLINICAL INDICATION: PAIN TECHNIQUE: Four or more views of the right knee. COMPARISON: No relevant prior studies available. FINDINGS: BONES/JOINTS: Tricompartmental marginal osteophytosis and weightbearing compartment joint space narrowing. Patellar enthesophytes. No acute fracture. No subluxation. Normal alignment. No sclerotic or destructive changes observed. SOFT TISSUES: No significant abnormality. No soft tissue swelling or gas. No radiopaque foreign body. VASCULATURE: Vascular calcifications. RAD/Knee 4 or More Views IMPRESSION: Tricompartmental degenerative changes and likely chronic posttraumatic change. No acute osseous findings. Electronically Signed: Sergio Orellana DO at 23:59 EST ,
--- NOTE | 2023-08-29 14:10 | RAD_ITS ---
EXAM: XR LEFT KNEE COMPLETE, 4 OR MORE VIEWS CLINICAL INDICATION: PAIN TECHNIQUE: Four or more views of the left knee. COMPARISON: No relevant prior studies available. FINDINGS: BONES/JOINTS: Tricompartmental marginal osteophytosis. Medial greater than lateral weightbearing compartment joint space narrowing with articular sclerosis. Patellar enthesophytes. No acute fracture. No subluxation. Normal alignment. SOFT TISSUES: No significant abnormality. No soft tissue swelling or gas. No radiopaque foreign body. VASCULATURE: Vascular calcifications. RAD/Knee 4 or More Views IMPRESSION: Tricompartmental degenerative changes. No acute osseous findings. Electronically Signed: Sergio Orellana DO at 23:59 EST ,
[2023-08-29 16:21] LABS: Anion Gap 6 (5-15); BUN 38 mg/dL (7-18); BUN/Creat Ratio 16.7 RATIO (10-20); Calcium,Total 9.1 mg/dL (8.5-10.1); Chloride 100 mmol/L (98-107); Creatinine, Serum 2.27 mg/dL (0.70-1.30); EST Glomerular Filtration Rate 29 mL/min (>60); Est Glom Filt Rate - Afr Amer 36 mL/min (>60); Free T3 1.8 pg/mL (2.18-3.98); Glucose 185 mg/dL (74-106); Potassium 3.6 mmol/L (3.5-5.1); Sodium Level 136 mmol/L (136-145); T4 Free Direct 1.12 ng/dL (0.76-1.46); Thyroid Stim Hormone (TSH) 2.06 uIU/mL (0.358-3.74)
== END | disposition home or self-care (01) ==
PROVIDERS: PCP Family Medicine; Referring Provider Family Medicine; Visit Provider Family Medicine
DX: E03.9 Hypothyroidism, unspecified (principal); N19 Unspecified kidney failure; M25.569 Pain in unspecified knee
CPT/HCPCS: 36415; 73564; 80048; 84439; 84443; 84481

== ENCOUNTER 2023-11-27 04:20 | Inpatient (IN) | payer MEDICARE, OTHER, SELFPAY ==
[2023-11-27] VITALS (11 sets, daily range): BP systolic 98–133; BP diastolic 44–60; PULSE 57–80; RESP 12–18; TEMP 36.1–37.9; O2SAT 94–100; BMI 31.1
--- NOTE | 2023-11-27 05:03 | RAD_ITS ---
INDICATION: weakness EXAMINATION/TECHNIQUE: X-RAY - AP view of chest COMPARISON: No comparison imaging received FINDINGS: LINES/DEVICES: Left AICD in place. LUNGS: Small curvy linear scarlike opacity versus calcification overlying left midlung. Retrocardiac opacity with central lucency compatible with moderate to large hiatal hernia. Mild right basilar atelectatic changes. No sizable pleural effusion. No detectable pneumothorax. MEDIASTINUM AND CARDIOVASCULAR STRUCTURES: Heart size within normal limits for imaging technique. Atherosclerotic calcifications along aorta. BONES AND SOFT TISSUES: Skeletal degenerative changes. RAD/Chest 1 View (Portable) IMPRESSION: Moderate to large hiatal hernia with no acute pulmonary airspace disease. Electronically Signed: Merlin Sumner MD at 5:58 EDT ,
[2023-11-27] MEDS: 0.9% Normal Saline (500mL Bag) 500 ML 999 ML IV (05:37)
[2023-11-27 05:44] LABS: Absolute Lymphocyte Count 0.54 X10^3/uL (0.83-4.51); Absolute Neutrophil Count 23.2 X10^3/uL (2.0-7.7); Basophil# 0.08 X10^3/uL; Basophil% 0.3 % (0-1); Eosinophils% 0.4 % (0-5); Hematocrit 34.6 % (40-54); Hemoglobin 11.1 g/dL (13.0-16.5); Lymphocyte # 0.54 X10^3/ul (0.83-4.51); Lymphocyte % 2.1 % (19-41); Mean Corp Hgb Conc 32.1 g/dL (32-36); Mean Corpuscular Hgb 29.1 pg (27.0-32.0); Mean Corpuscular Volume 90.6 fL (80-94); Mean Platelet Vol. 11.3 fl (6.2-12.0); Monocyte# 1.02 X10^3/uL; NRBC Flagged by Analyzer 0 % (0-5); Neutrophil # 23.19 X10^3/uL (2.7-7.7); Neutrophil % 90.4 % (47-70); POSITIVE DIFFERENTIAL YES; Platelet Count 226 K/mm3 (150-450); RBC Distribution Width CV 13.7 % (11.6-14.6); RBC Distribution Width SD 45.2 fl (35.1-43.9); Red Blood Count 3.82 M/mm3 (4.6-6.2); White Blood Count 25.7 K/mm3 (4.4-11.0)
[2023-11-27 06:05] LABS: Bacteria 0 SEEN /hpf (None Seen); Mucous, Urine 0 SEEN /hpf (<or=2+); Red Blood Cells-Urine 0 SEEN /hpf (0-5); Squamous Epithelial Cells - UA 0 SEEN /hpf (0-5); White Blood Cells 0 SEEN /hpf (0-5)
[2023-11-27 06:09] LABS: Color, Urine Yellow (Yellow); Glucose, Dipstick Normal (Normal); Ketone-Dipstick Negative (Negative); Leukocyte Esterase-Dipstick Negative /ul (Negative); Nitrite-Dipstick Negative (Negative); Occult Blood-Urine Negative /ul (Negative); Protein-Dipstick Negative (Negative); Specific Gravity, Urine 1.015 (1.002-1.030); Urine Bilirubin Dipstick Negative (Negative); Urine Clarity Clear (Clear); Urine Urobilinogen Normal (Normal)
[2023-11-27 06:31] LABS: Anion Gap 14 (5-15); BUN 69 mg/dL (7-18); BUN/Creat Ratio 17.9 RATIO (10-20); Calcium,Total 8.7 mg/dL (8.5-10.1); Chloride 95 mmol/L (98-107); Creatinine, Serum 3.86 mg/dL (0.70-1.30); EST Glomerular Filtration Rate 16 mL/min (>60); Est Glom Filt Rate - Afr Amer 19 mL/min (>60); Estimated Creatinine Clearance 15.27 ml/min; Glucose 214 mg/dL (74-106); Magnesium 1.8 mg/dL (1.6-2.6); Potassium 3.2 mmol/L (3.5-5.1); Sodium Level 132 mmol/L (136-145)
[2023-11-27 07:03] LABS: Differential Comment SCANNED; Differential Indicated SCAN CRITERIA MET
--- NOTE | 2023-11-27 07:21 | CT_ITS ---
STUDY: CT CHEST, ABDOMEN T PELVIS WITHOUT CONTRAST REASON FOR EXAM: Male, 83 years old. cough with abd pain WEAKNESS HX-CKD-4,DIAB,HTN,CHF,PACER RADIATION DOSAGE (If Supplied By Facility): CTDIvol = ( 15.89 ) mGy, DLP = ( 1306.51 ) mGycm TECHNIQUE: Transaxial imaging was performed without the administration of intravenous contrast material. Individualized dose optimization techniques were used for this CT. COMPARISON: Chest x-ray dated November 27, 2023 FINDINGS: CHEST Left chest cardiac device with right heart leads. Fibrotic opacity/scar tissue is present in the right middle lobe as well as the lingula. No consolidation or pleural effusion or pulmonary edema is present. No parenchymal nodules or malignant lesions are present. 3.8 mm nodular focus of fibrosis is present in the right middle lobe as seen on image 66/126 series 6. There is no demonstrated pleural abnormality. Normal trachea and bilateral mainstem bronchi. Unremarkable esophagus. Normal heart and pericardium. There are calcifications of the coronary arteries. Normal mediastinum. Normal hilar regions. Normal unenhanced pulmonary arteries. A 4.97 cm aneurysm of the ascending aorta is present. Atherosclerotic calcifications of the aortic arch and descending aorta are also present. There are multi-level degenerative changes of the thoracic spine. ABDOMEN Normal liver. There are multiple gallstones. Normal spleen. Normal pancreas. Normal bilateral adrenal glands. There is mild cortical atrophy of the right kidney, consistent with chronic medical renal disease. There is mild cortical atrophy of the left kidney, consistent with chronic medical renal disease. A large 7.82 cm anterolateral cortical cyst of the midpole of the left kidney is present. A small to moderate-sized anterior cortical simple cyst is also seen in the midpole of the left kidney measuring 4.49 cm. No hydronephrosis or radiopaque kidney stones are present. Mild chronic perinephric stranding is seen in both kidneys. No additional imaging of the left kidney cyst is required. There is a small hiatal hernia. Normal small intestine. There are multiple colonic diverticula consistent with diverticulosis. There is non-visualization of the appendix. There is diffuse atherosclerotic calcification of the abdominal aorta, without a demonstrated aneurysm. Normal inferior vena cava. Normal retroperitoneum. Normal abdominal wall. Normal osseous structures. PELVIS Normal urinary bladder. Normal visualized small intestine. Normal visualized colon. There is no pelvic fluid. There is no pelvic lymphadenopathy or mass lesion. There is diffuse atherosclerotic calcification of the pelvic arteries with elongation and tortuosity. Normal abdominal wall. There are diffuse degenerative changes of the visualized lumbar spine. Chronic compression deformity of the L4 vertebral body which was previously treated with kyphoplasty material. CT/CT Chest, Abd, Pelvis WO Cont IMPRESSION: 1. Chest: Fibrotic opacity/scar tissue is present in the right middle lobe as well as the lingula. No consolidation or pleural effusion or pulmonary edema is present. No parenchymal nodules or malignant lesions are present. 3.8 mm nodular focus of fibrosis is present in the right middle lobe as seen on image 66/126 series 6. 2. 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 Abdomen and pelvis: Gallstones 4. Colonic diverticulosis Electronically Signed: Alexi Eden MD at 8:32 EDT ,
--- NOTE | 2023-11-27 07:46 | EX.ED.DYSGE1 ---
HPI History of Present Illness Chief Complaint: Weakness Informant: patient, family and EMS Narrative Narrative: Patient is an 83-year-old male with past medical history of congestive heart failure chronic kidney disease hypertension and previous GI bleed requiring hospitalization and blood transfusion. He states that over the last 1 to 2 days he has had generalized malaise and muscle aches and weakness. He states that last night/this morning around 3 or 4 AM he got up to use the bathroom and as he tried to stand up out of bed felt so weak that he slid down from the bed onto the floor and could not stand. He denies striking his head or any loss of consciousness he denies any history of bleeding disorder or blood thinner use. However he lives with his and based on his severe weakness she could not help him up and therefore EMS was called and he was brought to the hospital for evaluation [facility] Medical History Anticoagulant-induced bleeding Benign positional vertigo Blood transfusion during current hospitalisation CKD (chronic kidney disease), stage IV Diabetes GI bleed HFrEF (heart failure with reduced ejection fraction) Hiatal hernia MIAU (minor aphthous ulceration) Pulmonary embolism Home Medications levothyroxine 75 mcg tablet 75 mcg PO DAILY 06/28/21 [History Last Taken Unknown] mecobalamin (vitamin B12) 1,000 mcg chewable tablet (B12 Active) 1,000 mcg PO DAILY 06/28/21 [History Last Taken Unknown] metoprolol succinate 100 mg tablet,extended release 24 hr 100 mg PO DAILY 06/28/21 [History Last Taken Unknown] nkeecwofcvnn-twf-nqfya acid-vit K-lycop 400 mcg-20 mcg-370 mcg tablet (Men's 50 Plus Multivitamin) 1 tab PO DAILY 06/28/21 [History Last Taken Unknown] potassium chloride 20 mEq tablet,extended release(part/cryst) 20 meq PO BID 06/28/21 [History Last Taken Unknown] sertraline 25 mg tablet 25 mg PO DAILY 06/28/21 [History Last Taken Unknown] spironolactone 25 mg tablet 25 mg PO DAILY 06/28/21 [History Last Taken Unknown] tamsulosin 0.4 mg capsule 0.4 mg PO DAILY 06/28/21 [History Last Taken Unknown] ferrous sulfate 325 mg (65 mg iron) tablet 325 mg PO DAILY #30 tabs 07/01/21 [Rx Last Taken Unknown] sucralfate 1 gram tablet (Carafate) 1 g PO .QID 30 days 07/01/21 [Rx Last Taken Unknown] gabapentin 600 mg tablet 600 mg PO BID #0 tabs 08/22/21 [Rx Last Taken Unknown] torsemide 20 mg tablet 40 mg (2 x 20 mg) PO BID #120 tabs 08/22/21 [Rx Last Taken Unknown] pantoprazole 40 mg tablet,delayed release 40 mg PO BID #120 tabs 09/21/21 [Rx Last Taken Unknown] sucralfate 100 mg/mL oral suspension 10 ml PO BID #1,000 mL 09/21/21 [Rx Last Taken Unknown] colestipol 1 gram tablet 0.5 g (1/2 x 1 gram) PO .every other day 30 days #30 tabs 11/19/21 [Rx Last Taken Unknown] Allergy/AdvReac Type Severity Reaction Status Date / Time No Known Allergies Allergy Verified 11/27/23 04:42 Family History Other Cancer Hypertension Surgical History History of permanent cardiac pacemaker placement Social History household members: spouse Smoking Status: Never smoker alcohol intake: never substance use type: does not use ROS ROS ED Constitutional Constitutional ED: Denies chills or fever(s) Eyes Eyes: Denies blurry vision, change in vision or diplopia ENT ENT ED: Denies rhinorrhea or sore throat Cardiovascular Cardiovascular: Denies chest pain Respiratory/Chest Respiratory/Chest: Denies cough or dyspnea Gastrointestinal Gastrointestinal: Denies abdominal pain, diarrhea, nausea or vomiting Genitourinary Genitourinary ED: Denies dysuria or hematuria Musculoskeletal Musculoskeletal: Reports myalgias Integumentary Denies rash Neurologic Neurologic: Reports weakness; Denies headache(s) or paresthesias Hematologic/Lymphatic Hematologic/Lymphatic: Reports easy bleeding and easy bruising EXAM Physical Exam Const Vital Signs: 11/27/23 04:20 11/27/23 06:20 11/27/23 07:59 Temperature 97.2 F L Temperature Source Temporal Pulse Rate 78 77 70 Respiratory Rate 18 18 14 Blood Pressure 124/49 H 126/60 H 122/56 H Blood Pressure Mean 74 82 78 Pulse Ox 95 99 99 Oxygen Delivery Method Room Air Room Air Room Air Positive well nourished and well developed General Appearance ED: well developed and pallor HEENT Reports dry mucous membranes HEENT Narrative: Mucous membranes are dry and tacky without tongue or lip swelling airway edema or compromise No secondary changes in the posterior pharynx to suggest infection Mouth ED: Yes dry mucous membranes Mouth: dry mucous membranes Eyes PERRL and EOMs intact bilaterally Eyes Narrative: Positive subconjunctival pallor noted General Eye ED: Yes pale conjunctiva; Negative for scleral icterus Neck supple and no JVD Neck Narrative: No bony deformity or step-off of the cervical spine no midline tenderness to palpation No nuchal rigidity or meningeal signs noted Chest Wall palpation of chest normal Chest Narrative: No bony deformity or crepitance Resp normal respiratory effort and clear to auscultation bilaterally Resp Narrative: No nasal flaring retractions tachypnea or accessory muscle use Cardio regular rate and regular rhythm Rate: other Other Details: Heart is regular rate and rhythm Radial and carotid pulses are equal and symmetric GI normal to inspection, nondistended, normoactive bowel sounds, non-tender, non-distended and no masses GI Narrative: No voluntary guarding or rigidity or pulsatile mass Auscultation: normoactive bowel sounds Palpation: soft Back/Spine Back/Spine Narrative: No bony deformity or step-off of the thoracic or lumbar spine no midline tenderness to palpation Extremity normal to inspection Extremity Narrative: Pelvis is stable there is no shortening or external rotation of either lower extremity Patient does have full active range of motion of all extremities Neuro oriented x3, CN's II-XII intact bilaterally and no sensory deficits noted Neuro Narrative: Cranial nerves II through XII are grossly intact there are no focal neurologic deficits NIH stroke scale score of 0 Sensorium / Orientation: alert Psych mental status grossly normal Skin no rashes or lesions noted, no wounds and No skin turgor normal Skin Narrative: Skin turgor is increased Skin is pale in color but capillary refills less than 3 seconds No areas of erythema or warmth No abrasions or ecchymosis noted General Skin Exam: pallor; Negative for jaundice MDM MDM MDM Narrative Medical decision making narrative: Patient arrived to the ER with stable vitals and a nonfocal neurologic exam. He reported generalized weakness and myalgias and had a stroke scale score of 0 going against the need to activate a acute stroke team. Differential diagnosis is for acute blood loss anemia versus electrolyte abnormality versus infectious process such as septicemia from pneumonia or UTI. There is also concern for potential acute on chronic kidney disease. There is also concern with his myalgias this could be due to a viral infection such as COVID influenza or RSV. Secondary to this basic labs were obtained. The patient's viral swab was negative chest x-ray revealed no obvious pneumonia urine sample revealed no sign of infection. However his white blood cell count is elevated approximately 26 and his kidney function has elevated from baseline of approximately 2.2-3.8 indicating acute on chronic kidney disease. At this time I do not have an obvious source of infection as his chest x-ray does not show pneumonia and his urine sample was clear as well as his viral swabs being negative. Therefore CTs of the chest abdomen and pelvis will be obtained. Imaging study revealed no obvious cause of infection. It did document gallstones but he does not have any pericholecystic changes or pain on palpation in the right upper quadrant. His CK level is elevated at 2300 consistent with rhabdomyolysis indicating he has been on the ground longer than reported. Therefore based on his generalized weakness acute on chronic kidney injury and now rhabdomyolysis medicine was contacted and they do agree to accept the patient for further care in the hospital History & Record Review Discussion w/independent historian: Patient and Family Lab Data Attestation: I reviewed the patient's lab results. Labs: Laboratory Results - last 24 hr 11/27/23 11/27/23 11/27/23 05:14 06:00 07:25 WBC 25.7 H RBC 3.82 L Hgb 11.1 L Hct 34.6 L MCV 90.6 MCH 29.1 MCHC 32.1 RDW Std Deviation 45.2 H RDW Coeff of Anuradha 13.7 Plt Count 226 MPV 11.3 Immature Gran % (Auto) 2.800 H Neut % (Auto) 90.4 H Lymph % (Auto) 2.1 L [place] % (Auto) 4.0 Eos % (Auto) 0.4 Baso % (Auto) 0.3 Absolute Neuts (auto) 23.2 H Absolute Lymphs (auto) 0.54 L Nucleated RBC % 0 Differential Comment SCANNED Sodium 132 L Potassium 3.2 L Chloride 95 L Carbon Dioxide 23.0 Anion Gap 14 BUN 69 H Creatinine 3.86 H Estim Creat Clear Calc 15.27 Est GFR (MDRD) Af Amer 19 L Est GFR (MDRD) Non-Af 16 L BUN/Creatinine Ratio 17.9 Glucose 214 H Lactic Acid 1.2 Calcium 8.7 Magnesium 1.8 Total Creatine Kinase 2351 H TSH 1.10 Urine Color Yellow Urine Clarity Clear Urine pH 5.0 Ur Specific [place] 1.015 Urine Protein Negative Urine Glucose (UA) Normal Urine Ketones Negative Urine Occult Blood Negative Urine Nitrite Negative Urine Bilirubin Negative Urine Urobilinogen Normal Ur Leukocyte Esterase Negative Urine RBC 0 SEEN Urine WBC 0 SEEN Ur Squamous Epith Cells 0 SEEN Urine Bacteria 0 SEEN Urine Mucus 0 SEEN Radiography Diagnostic Testing: Clinical Impression(s) from Imaging Studies Chest X-Ray 11/27/23 05:03 IMPRESSION: Moderate to large hiatal hernia with no acute pulmonary airspace disease. Electronically Signed: Merlin Sumner MD at 5:58 EDT , Chest/Abdomen/Pelvis CT 11/27/23 07:21 IMPRESSION: 1. Chest: Fibrotic opacity/scar tissue is present in the right middle lobe as well as the lingula. No consolidation or pleural effusion or pulmonary edema is present. No parenchymal nodules or malignant lesions are present. 3.8 mm nodular focus of fibrosis is present in the right middle lobe as seen on image 66/126 series 6. 2. 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 Abdomen and pelvis: Gallstones 4. Colonic diverticulosis Electronically Signed: Alexi Eden MD at 8:32 EDT , Chest x-ray as interpreted by the emergency medicine physician reveals a hiatal hernia which is chronic in nature without acute infiltrate pneumothorax or pleural effusion Management Discussion w/another healthcare provider: Hospitalist Discharge Plan Triage Chief Complaint: Weakness ED Provider: Shaun Taveras Dx/Rx/DC Orders Clinical Impression: Generalized weakness, Leukocytosis, Rhabdomyolysis, [id number] kidney injury Prescriptions: No Action sucralfate 100 mg/mL suspension 10 ml PO BID Qty: 1000 0RF pantoprazole 40 mg tablet,delayed release (DR/EC) 40 mg PO BID Qty: 120 3RF colestipol 1 gram tablet 0.5 g PO .every other day 30 Days Qty: 30 1RF metoprolol succinate 100 mg Tablet Extended Release 24 Hr 100 mg PO DAILY spironolactone 25 mg Tablet 25 mg PO DAILY levothyroxine 75 mcg Tablet 75 mcg PO DAILY potassium chloride 20 mEq Tablet,Er Particles/Crystals 20 meq PO BID tamsulosin 0.4 mg Capsule 0.4 mg PO DAILY sertraline 25 mg Tablet 25 mg PO DAILY Men's 50 Plus Multivitamin 400-20-370 mcg Tablet 1 tab PO DAILY B12 Active 1,000 mcg Tablet,Chewable 1,000 mcg PO DAILY ferrous sulfate 325 mg (65 mg iron) tablet 325 mg PO DAILY Qty: 30 0RF sucralfate [Carafate] 1 gram tablet 1 g PO .QID 30 Days 0RF torsemide 20 mg tablet 40 mg PO BID Qty: 120 0RF gabapentin 600 mg Tablet 600 mg PO BID Qty: 0 0RF Rx Instructions: 1/2 tab twice a day for 5 days, then 600mg twice a day thereafter Primary Care Provider: Joseph Durand Referrals: Joseph Durand MD [Primary Care Provider] - Disposition Disposition: Acute Care [facility]
[2023-11-27 08:33] LABS: Lactic Acid 1.2 mmol/L (0.4-1.9)
[2023-11-27 08:37] LABS: CPK Total, Creatine Kinase 2351 U/L (39-308)
[2023-11-27 09:21] LABS: BNP,B-Type NATRIURETIC PEPTIDE 610.2 pg/mL (0-100)
--- NOTE | 2023-11-27 09:25 | ED.RN ---
vitals late and normal saline not initated in ER d/t this RN with another pt that was a one to one.
[2023-11-27 09:32] LABS: Procalcitonin 18.17 ng/mL (0.00-0.09)
--- NOTE | 2023-11-27 09:36 | NURSING ---
pt arrived to floor. awaiting him to be put in his [id number] bed assignment via registration. vitals: 105/47 bp SUL HR 66 resps 16, spo2 96% on room air temp 98.4
--- NOTE | 2023-11-27 09:49 | NURSING ---
pt states he sees Dr. Walker at [facility] and his office should have an updated and correct med list.
[2023-11-27] MEDS: 0.9% Normal Saline (1000mL) 1,000 ML 150 ML IV (10:38)
[2023-11-27] MEDS: Pantoprazole Sodium 40 MG Tablet PO ×2 (10:38→21:25)
[2023-11-27] MEDS: 0.9% Saline Lock 10 ML Syringe IV (10:38)
[2023-11-27] MEDS: Sertraline 50 MG Tablet 25 MG PO (10:59)
[2023-11-27] MEDS: Tamsulosin HCl 0.4 MG Capsule PO ×2 (10:59→21:25)
[2023-11-27] MEDS: Levothyroxine 75 MCG Tablet PO (11:01)
[2023-11-27] MEDS: Acetaminophen 325 MG Tablet 650 MG PO ×2 (11:21→20:03)
--- NOTE | 2023-11-27 13:52 | PCM.HP.STD ---
HPI - General General Date of Admission: 11/27/23 Date of Service: 11/27/23 Chief Complaint: falls. HPI Narrative MEGAN SANDHU, is a 83 M who presents weakness and falls. He states that he has been sliding onto the floors. This morning, he got up to go to the bathroom, felt weak, then slid down. He was sent to the ED. Creatinine was noted to be 3.86, up from 2.27 on Aug 29. White count was elevated at 25.7. Infectious work up was performed and, thus far, negative. He was found to have rhabdomyolysis 2350. He received IVF in the ED. [facility] Medical History Anticoagulant-induced bleeding Benign positional vertigo Blood transfusion during current hospitalisation CKD (chronic kidney disease), stage IV Diabetes GI bleed HFrEF (heart failure with reduced ejection fraction) Hiatal hernia MIAU (minor aphthous ulceration) Pulmonary embolism Home Medications levothyroxine 75 mcg tablet 75 mcg PO DAILY thyroid 06/28/21 [History Last Taken Unknown] mecobalamin (vitamin B12) 1,000 mcg chewable tablet (B12 Active) 1,000 mcg PO DAILY anemia 06/28/21 [History Last Taken Unknown] metoprolol succinate 100 mg tablet,extended release 24 hr 100 mg PO DAILY heart 06/28/21 [History Last Taken Unknown] dcjjudzkebbx-hpm-ksxxr acid-vit K-lycop 400 mcg-20 mcg-370 mcg tablet (Men's 50 Plus Multivitamin) 1 tab PO DAILY not on pcp med list 06/28/21 [History Last Taken Unknown] potassium chloride 20 mEq tablet,extended release(part/cryst) 20 meq PO BID not on pcp med list 06/28/21 [History Last Taken Unknown] sertraline 25 mg tablet 25 mg PO DAILY mdoffice 06/28/21 [History Last Taken Unknown] spironolactone 25 mg tablet 25 mg PO DAILY not on pcp list 06/28/21 [History Last Taken Unknown] tamsulosin 0.4 mg capsule 0.4 mg PO DAILY per md office list 06/28/21 [History Last Taken Unknown] ferrous sulfate 325 mg (65 mg iron) tablet 325 mg PO DAILY #30 tabs 07/01/21 [Rx Last Taken Unknown] gabapentin 600 mg tablet 600 mg PO BID #0 tabs 08/22/21 [Rx Last Taken Unknown] pantoprazole 40 mg tablet,delayed release 40 mg PO BID #120 tabs 09/21/21 [Rx Last Taken Unknown] sucralfate 100 mg/mL oral suspension 10 ml PO BID md office #1,000 mL 09/21/21 [Rx Last Taken Unknown] colestipol 1 gram tablet 0.5 g (1/2 x 1 gram) PO .every other day 30 days #30 tabs 11/19/21 [Rx Last Taken Unknown] gabapentin 400 mg capsule 400 mg PO TID per md office list 11/27/23 [History Last Taken Unknown] glimepiride 1 mg tablet 1 mg PO DAILY per pcp med list 11/27/23 [History Last Taken Unknown] rosuvastatin 20 mg tablet 20 mg PO DAILY per pcp 11/27/23 [History Last Taken Unknown] sacubitril 24 mg-valsartan 26 mg tablet (Entresto) 1 tab PO BID per pcp med list 11/27/23 [History Last Taken Unknown] sertraline 50 mg tablet 50 mg PO DAILY per md office 11/27/23 [History Last Taken Unknown] sildenafil 100 mg tablet PO per pcp med list 11/27/23 [History Last Taken Unknown] sucralfate 1 gram tablet (Carafate) 1 g PO BID per MD office list 11/27/23 [History Last Taken Unknown] tadalafil 20 mg tablet (Cialis) 20 mg PO DAILY PRN sexual activity 11/27/23 [History Last Taken Unknown] torsemide 20 mg tablet 40 mg PO BID per md of 11/27/23 [History Last Taken Unknown] Allergy/AdvReac Type Severity Reaction Status Date / Time No Known Allergies Allergy Verified 11/27/23 04:42 Family History Other Cancer Hypertension Surgical History History of permanent cardiac pacemaker placement Social History household members: spouse Smoking Status: Never smoker alcohol intake: never substance use type: does not use ROS ROS Narrative Had some subjective chills and rhinitis. All review of systems were negative except as mentioned above in the history of present illness and the other review of systems. Vital Signs Vital Signs Vital Signs: 11/27/23 04:20 11/27/23 06:20 11/27/23 07:59 Temperature 36.2 C L Temperature Source Temporal Pulse Rate 78 77 70 Respiratory Rate 18 18 14 Respiratory Effort Respiratory Depth Respiratory Pattern Blood Pressure 124/49 H 126/60 H 122/56 H Blood Pressure Mean 74 82 78 Blood Pressure Source Blood Pressure Position Blood Pressure Location Pulse Ox 95 99 99 Oxygen Delivery Method Room Air Room Air Room Air 11/27/23 09:23 11/27/23 09:48 11/27/23 09:40 Temperature 36.1 C L 36.9 C Temperature Source Oral Pulse Rate 66 66 Respiratory Rate 12 16 Respiratory Effort Normal Non-Labored Respiratory Depth Normal Respiratory Pattern Normal Blood Pressure 133/59 H 105/47 L Blood Pressure Mean 83 66 Blood Pressure Source Monitor Blood Pressure Position Supine Blood Pressure Location Left Arm Pulse Ox 98 96 Oxygen Delivery Method Room Air Room Air 11/27/23 11:15 11/27/23 11:38 11/27/23 13:06 Temperature 36.7 C 36.8 C Temperature Source Oral Oral Pulse Rate 66 66 57 L Respiratory Rate 16 16 Respiratory Effort Respiratory Depth Respiratory Pattern Blood Pressure 98/44 L 98/44 L 102/48 L Blood Pressure Mean 62 66 Blood Pressure Source Monitor Monitor Blood Pressure Position Semi-Fowlers Semi-Fowlers Blood Pressure Location Left Arm Left Arm Pulse Ox 96 94 Oxygen Delivery Method Room Air Room Air Weight Weight: 90 kg Body Mass Index (BMI) 31.1 Physical Exam Const alert and no apparent distress HEENT normocephalic and head/scalp atraumatic Resp normal respiratory effort and no retractions Cardio regular rate, regular rhythm, S1 normal heart sound and S2 normal heart sound GI normal to inspection, nondistended, normoactive bowel sounds, soft to palpation, non-tender and non-distended Extremity normal to inspection and full ROM Neuro moves all extremities Sensorium / Orientation: awake and alert Psych affect normal Results Lab / Micro Data 11/27/23 05:14 11/27/23 05:14 Labs: Laboratory Results - last 24 hr 11/27/23 05:14: WBC 25.7 H, RBC 3.82 L, Hgb 11.1 L, Hct 34.6 L, MCV 90.6, MCH 29.1, MCHC 32.1, RDW Std Deviation 45.2 H, RDW Coeff of Anuradha 13.7, Plt Count 226, MPV 11.3, Immature Gran % (Auto) 2.800 H, Neut % (Auto) 90.4 H, Lymph % (Auto) 2.1 L, [place] % (Auto) 4.0, Eos % (Auto) 0.4, Baso % (Auto) 0.3, Absolute Neuts (auto) 23.2 H, Absolute Lymphs (auto) 0.54 L, Nucleated RBC % 0, Differential Comment SCANNED, Sodium 132 L, Potassium 3.2 L, Chloride 95 L, Carbon Dioxide 23.0, Anion Gap 14, BUN 69 H, Creatinine 3.86 H, Estim Creat Clear Calc 15.27, Est GFR (MDRD) Af Amer 19 L, Est GFR (MDRD) Non-Af 16 L, BUN/Creatinine Ratio 17.9, Glucose 214 H, Calcium 8.7, Magnesium 1.8, B-Natriuretic Peptide 610.2 H, TSH 1.10 11/27/23 06:00: Urine Color Yellow, Urine Clarity Clear, Urine pH 5.0, Ur Specific [place] 1.015, Urine Protein Negative, Urine Glucose (UA) Normal, Urine Ketones Negative, Urine Occult Blood Negative, Urine Nitrite Negative, Urine Bilirubin Negative, Urine Urobilinogen Normal, Ur Leukocyte Esterase Negative, Urine RBC 0 SEEN, Urine WBC 0 SEEN, Ur Squamous Epith Cells 0 SEEN, Urine Bacteria 0 SEEN, Urine Mucus 0 SEEN 11/27/23 07:25: Lactic Acid 1.2, Total Creatine Kinase 2351 H, Procalcitonin 18.17 H Micro: Microbiology 11/27/23 05:30 Mucosa - Nose SARS-CoV-2, Influenza & RSV (PCR) - Final Imaging Radiology Impression Chest X-Ray 11/27/23 05:03 IMPRESSION: Moderate to large hiatal hernia with no acute pulmonary airspace disease. Electronically Signed: Merlin Sumner MD at 5:58 EDT , Chest/Abdomen/Pelvis CT 11/27/23 07:21 IMPRESSION: 1. Chest: Fibrotic opacity/scar tissue is present in the right middle lobe as well as the lingula. No consolidation or pleural effusion or pulmonary edema is present. No parenchymal nodules or malignant lesions are present. 3.8 mm nodular focus of fibrosis is present in the right middle lobe as seen on image 66/126 series 6. 2. 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 Abdomen and pelvis: Gallstones 4. Colonic diverticulosis Electronically Signed: Alexi Eden MD at 8:32 EDT Reading Location ID and State: [facility] / [place] , Service support , Assessment & Plan Assessment/Plan (1) Uonol-ja-aljuhvd kidney injury: (2) Rhabdomyolysis: (3) Leukocytosis: (4) Generalized weakness: PLAN: Plan GABI On chronic kidney disease stage IV Continue with IV fluids cautiously. Hold diuretics: Holding spironolactone and torsemide. Additionally holding on sacubitril/valsartan. Follow-up. If felt worsening, consider renal ultrasound and or nephrology consult. Rhabdomyolysis Secondary to fall IV fluids Follow-up Leukocytosis Unclear significance. No clear sign infection at this time. Hold off on antibiotics at this point. He did have a hip injection that had steroids, but that was 2-months ago. Therefore, I do not feel that is a contributing factor. Monitor for now. Debility Likely multifactorial given advanced age, multiple medical comorbidities PT OT CM to evaluate for discharge disposition Hold gabapentin. Given advanced age, multiple medical comorbidities, GABI--too high risk at this time. Cannot determine if contributing to debility at this time. Chronic conditions: chronic HFrEF. Compensated at this time. 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 Hold Entresto, furosemide, spironolactone at this time given GABI. Continue metoprolol succinate. DM2: non-insulin dependent. Continue glimepiride. Add SSI. Depression: continue sertraline BPH: continue tamsulosin VTE prophylaxis: continue with enoxaparin. Code status: DW patient. DNRCCA, ok for short-term intubation. Charges/Coding Visit Charges Inpatient E&M: 61090 Init Hosp L3
[2023-11-27] MEDS: Sucralfate 1 GM Tablet PO (16:07)
[2023-11-27 16:41] LABS: Bedside Glucose 143 mg/dL (74-106)
[2023-11-27] MEDS: oxyCODONE 5 MG Tablet PO (20:03)
[2023-11-27 22:32] LABS: Bedside Glucose 174 mg/dL (74-106)
[2023-11-28] VITALS (7 sets, daily range): BP systolic 123–154; BP diastolic 52–62; PULSE 60–86; RESP 16–18; TEMP 36.2–37.9; O2SAT 96–99
[2023-11-28] MEDS: Enoxaparin 30 MG/0.3 ML Syringe SC (06:08)
[2023-11-28] MEDS: Sucralfate 1 GM Tablet PO ×2 (06:08→16:20)
[2023-11-28] MEDS: Levothyroxine 75 MCG Tablet PO (06:08)
[2023-11-28] MEDS: Acetaminophen 325 MG Tablet 650 MG PO ×2 (06:24→20:13)
[2023-11-28] MEDS: oxyCODONE 5 MG Tablet PO ×3 (06:24→20:13)
--- NOTE | 2023-11-28 06:30 | US_ITS ---
STUDY: ABDOMINAL ULTRASOUND - RIGHT UPPER QUADRANT REASON FOR VISIT: Male, 83 years old Cholelithiasic TECHNIQUE: Ultrasound evaluation of the right upper quadrant was performed with real-time and static marin-scale imaging. TECHNICAL QUALITY: Limited. Examination limited by bowel gas. COMPARISON: Comparison is made with prior sonogram dated February 23, 2013. FINDINGS: Liver: The liver measures 16.3 cm. There is increased echogenicity consistent with fatty infiltration. The bile ducts are within normal limits. There is hepatic color flow. The direction of portal flow is hepatopetal. There is no demonstrated mass lesion. Gallbladder: Normal distended gallbladder. The gallbladder wall measures 3.1 mm. There is a negative sonographic Kaplan''s sign. There is no pericholecystic fluid. There are no gallstones. Sludge is seen in the gallbladder lumen. Common Bile Duct (C.B.D.): The common bile duct measures 3.8 mm. Pancreas: Normal size of the head, body of the pancreas. The tail portion is obscured due to overlying bowel gas. There is normal echogenicity of the pancreas. There is no demonstrated pancreatic mass or cyst. Right Kidney: Normal size of the right kidney. The right kidney measures 10.4 cm x 3.8 cm x 5.9 cm. Normal renal cortex. The right cortex measures 1.1 cm. There is no demonstrated renal mass or cyst. There is no right hydronephrosis. US/Gallbladder IMPRESSION: Sludge is seen in the gallbladder lumen. Fatty infiltration of the liver. Electronically Signed: Kartik Gerber MD at 10:24 EDT ,
[2023-11-28 07:12] LABS: Bedside Glucose 140 mg/dL (74-106)
[2023-11-28 07:31] LABS: Absolute Lymphocyte Count 0.84 X10^3/uL (0.83-4.51); Absolute Neutrophil Count 15.6 X10^3/uL (2.0-7.7); Basophil# 0.05 X10^3/uL; Basophil% 0.3 % (0-1); Eosinophil# 0.08 X10^3/uL; Eosinophils% 0.4 % (0-5); Hematocrit 30.9 % (40-54); Hemoglobin 10.3 g/dL (13.0-16.5); Lymphocyte # 0.84 X10^3/ul (0.83-4.51); Lymphocyte % 4.7 % (19-41); Mean Corp Hgb Conc 33.3 g/dL (32-36); Mean Corpuscular Hgb 29.8 pg (27.0-32.0); Mean Corpuscular Volume 89.3 fL (80-94); Mean Platelet Vol. 10.8 fl (6.2-12.0); Monocyte# 0.65 X10^3/uL; Monocyte% 3.6 % (0-10); NRBC Flagged by Analyzer 0 % (0-5); Neutrophil # 15.59 X10^3/uL (2.7-7.7); Neutrophil % 87.5 % (47-70); Platelet Count 231 K/mm3 (150-450); RBC Distribution Width SD 45.5 fl (35.1-43.9); Red Blood Count 3.46 M/mm3 (4.6-6.2); White Blood Count 17.8 K/mm3 (4.4-11.0)
--- NOTE | 2023-11-28 07:42 | PN.HOSP_ITS ---
Reason for Visit Reason for Visit: Diagnoses Elevated white blood cell count, unspecified (11/27/23) Rhabdomyolysis (11/27/23) Acute kidney failure, unspecified (11/27/23) Chronic kidney disease, unspecified (11/27/23) Weakness (11/27/23) Subjective Subjective Complains of pain in his feet since getting his toenails cut. Objective Data Objective Data Vital Signs: Vital Signs Temp Pulse Resp BP Pulse Ox O2 Del Method 36.2 C L 62 16 123/55 H 99 Room Air 11/28/23 03:45 11/28/23 03:45 11/28/23 03:45 11/28/23 03:45 11/28/23 03:45 11/28/23 03:45 Oxygen Delivery Method Room Air Weight: 90 kg Body Mass Index (BMI) 31.1 Intake & Output: Intake and Output for Last 24 Hours 11/26/23 11/27/23 11/28/23 23:59 23:59 23:59 Intake Total 2467.5 / 2667.5 250 / 250 Output Total 250 / 800 750 / 750 Balance 2217.5 / 1867.5 -500 / -500 Lab / Micro Data 11/28/23 07:10 11/28/23 07:10 Labs: Laboratory Results - last 24 hr 11/27/23 05:14: B-Natriuretic Peptide 610.2 H 11/27/23 07:25: Lactic Acid 1.2, Total Creatine Kinase 2351 H, Procalcitonin 18.17 H 11/27/23 15:55: POC Glucose 143 H 11/27/23 21:38: POC Glucose 174 H 11/28/23 06:20: POC Glucose 140 H 11/28/23 07:10: WBC 17.8 H, RBC 3.46 L, Hgb 10.3 L, Hct 30.9 L, MCV 89.3, MCH 29.8, MCHC 33.3, RDW Std Deviation 45.5 H, RDW Coeff of Anuradha 14.0, Plt Count 231, MPV 10.8, Immature Gran % (Auto) 3.500 H, Neut % (Auto) 87.5 H, Lymph % (Auto) 4.7 L, [place] % (Auto) 3.6, Eos % (Auto) 0.4, Baso % (Auto) 0.3, Absolute Neuts (auto) 15.6 H, Absolute Lymphs (auto) 0.84, Nucleated RBC % 0 Micro: Microbiology 11/27/23 05:30 Mucosa - Nose SARS-CoV-2, Influenza & RSV (PCR) - Final Radiography Diagnostic Testing: Radiology Impression Chest/Abdomen/Pelvis CT 11/27/23 07:21 IMPRESSION: 1. Chest: Fibrotic opacity/scar tissue is present in the right middle lobe as well as the lingula. No consolidation or pleural effusion or pulmonary edema is present. No parenchymal nodules or malignant lesions are present. 3.8 mm nodular focus of fibrosis is present in the right middle lobe as seen on image 66/126 series 6. 2. 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 Abdomen and pelvis: Gallstones 4. Colonic diverticulosis Electronically Signed: Alexi Eden MD at 8:32 EDT Reading Location ID and State: [facility] / [place] , Service support , Physical Exam Const alert Constitutional Narrative: Anxious. HEENT head/scalp atraumatic and moist oral mucous membranes Resp normal respiratory effort, no retractions, no use of accessory muscles and clear to auscultation bilaterally Cardio regular rate, regular rhythm, S1 normal heart sound and S2 normal heart sound GI normal to inspection, nondistended, normoactive bowel sounds, soft to palpation, non-tender and non-distended Extremity Extremity Narrative: Toenails look good. Good pulses bilaterally. No cyanosis, no mottling in lower extremities nor on his feet. Neuro Sensorium / Orientation: awake Assessment & Plan Assessment/Plan (1) Gzvwp-ix-ihcumtw kidney injury: (2) Rhabdomyolysis: (3) Leukocytosis: (4) Generalized weakness: PLAN: Plan GABI * Improved * on chronic kidney disease stage IV * Continue with IV fluids cautiously. Hold diuretics: Holding spironolactone and torsemide. Additionally holding on sacubitril/valsartan. * Follow-up. If felt worsening, consider renal ultrasound and or nephrology consult. Rhabdomyolysis * Secondary to fall. I suspect pt was down for longer than he thinks. * No further IV fluids given the patient's history of heart failure * Trending down. Leukocytosis * [place]redning down. * Unclear significance. No clear sign infection at this time. COVID-19, influenza, RSV negative. BCx so far negative. * Contineu to hold off on antibiotics at this point. * He did have a hip injection that had steroids, but that was 2-months ago. Therefore, I do not feel that is a contributing factor. * Monitor for now. Debility * Likely multifactorial given advanced age, multiple medical comorbidities * PT OT * CM to evaluate for discharge disposition * Hold gabapentin. Given advanced age, multiple medical comorbidities, GABI--too high risk at this time. Cannot determine if contributing to debility at this time. Hypokalemia * Replace. Monitor. Check magnesium. Chronic conditions: * chronic HFrEF. Compensated at this time. No available records in [employer], but I spoke with his assistant in nursing in 06/28/21 and it was 15% at that time. Hold Entresto, furosemide, spironolactone at this time given GABI. Continue metoprolol succinate. * DM2: non-insulin dependent. Continue glimepiride. Add SSI. * Depression: continue sertraline * BPH: continue tamsulosin VTE prophylaxis: continue with enoxaparin. Code status: DW patient. DNRCCA, ok for short-term intubation. Disposition: plan on SNF when medically ready. Should be medically ready over the weekend Charges/Coding Visit Charges Inpatient E&M: 62785 Subs Hosp L2
[2023-11-28 08:04] LABS: ALB/GLOB Ratio 0.7 RATIO (0.9-2.4); AST(SGOT) 37 U/L (15-37); Alanine Aminotransfer ALT/SGPT 29 U/L (16-61); Albumin, Serum 2.5 g/dL (3.2-5.0); Alkaline Phosphatase 118 U/L (45-117); Anion Gap 9 (5-15); BUN 69 mg/dL (7-18); BUN/Creat Ratio 22.5 RATIO (10-20); Calcium,Total 8.8 mg/dL (8.5-10.1); Chloride 103 mmol/L (98-107); Creatinine, Serum 3.06 mg/dL (0.70-1.30); EST Glomerular Filtration Rate 21 mL/min (>60); Est Glom Filt Rate - Afr Amer 25 mL/min (>60); Estimated Creatinine Clearance 19.23 ml/min; Globulin 3.8 g/dL (2.2-4.2); Glucose 154 mg/dL (74-106); Potassium 2.9 mmol/L (3.5-5.1); Protein, Total 6.3 g/dL (6.4-8.2); Sodium Level 136 mmol/L (136-145)
[2023-11-28 08:57] LABS: CPK Total, Creatine Kinase 1106 U/L (39-308)
[2023-11-28] MEDS: Atorvastatin Calcium 40 MG Tablet PO (10:19)
[2023-11-28] MEDS: Ferrous Sulfate 325 MG Tablet PO (10:19)
[2023-11-28] MEDS: Glimepiride 1 MG Tablet PO (10:19)
[2023-11-28] MEDS: Metoprolol(XL)Succ 100 MG Tablet PO (10:19)
[2023-11-28] MEDS: Pantoprazole Sodium 40 MG Tablet PO ×2 (10:19→20:13)
[2023-11-28] MEDS: Sertraline 50 MG Tablet PO (10:20)
[2023-11-28] MEDS: Potassium Chloride Oral Tablet 20 MEQ 40 MEQ PO ×2 (11:27→16:22)
[2023-11-28] MEDS: Insulin Lispro 100 UNIT/ML INSULN.PEN SC (11:30)
--- NOTE | 2023-11-28 13:10 | CASEMGMT ---
JAIMIE CRENSHAW assessment: JAIMIE CRENSHAW to room to meet with patient for initial transition planning/care coordination assessment. JAIMIE CRENSHAW introduced self and role at [facility]. Patient sitting up in chair in room, alert and oriented. Patient willing to participate in assessment and is able to answer all questions appropriately. Care providers, pharmacy, and demographics verified. PCP: Zenaida Specialists: Reji, foreign clerk Agueda. Basali-pain mgnt. Pt also sees an EPS doctor in [place]--he does not remember name. Preferred Pharmacy: [facility]: yes Living Will/HPOA: Pt states he is not sure if he has done LW, but states has done HCPOA, who is his dtr, Shaylee LNOK: daughter, ex- Living Arrangements: Patient lives alone in a one-story condo with no steps to enter the home. Patient states he is normally independent at home w/ADL's, IADL's, and manages his own medications and appts. Transportation: self, daughter, ex- DME: patient states he has a built-in shower seat, cane, rollator, grab bars, and pulse ox. He used to have home O2, but has returned it. [facility]: [facility] Patient denies previous SNF. Discussed discharge planning. Pt states d/t left leg swelling and pain, that he was not able to walk today. He wants to discharge home and states that when he is ready for discharge that it will be better and I'll be able to get along alright at home. I'll be able to walk. Discussed possibility that he will be medically ready to discharge from the hospital before swelling and pain goes down enough that he can walk. He states, I'll be okay. I can stay with my ex-. She lives right next to me and she'll be able to help me. He states she also lives in a one-story condo w/no steps to enter. He also stated his kids live close and can assist. Upon further discussion, he states his kids do all work, although his daughter works from home and can help him. JAIMIE CRENSHAW inquired, if he is unable to walk @ discharge, if his ex- or other family would be available/willing/able to assist w/toileting, dressing, bathing, etc. He states that yes, they can help with that, and again stated, I'll be okay. He denies wanting/needing a W/C or BSC or other DME. He did state he would like [facility] again and declines wanting list of other HHC options. Kristyn BHATIA and Chasity, MS3 RN FLOWER, made aware of above. Pt Goal: Home w/HHC. Plan: TBD, by progress w/therapy Frankie MAYER RN, CM
--- NOTE | 2023-11-28 15:15 | CASEMGMT ---
JAIMIE CM into pt room, provided pt with medic alert information. Pt requested this be placed in his homegoing folder. Pt denies further needs at this time.
[2023-11-28 16:30] LABS: Bedside Glucose 175 mg/dL (74-106)
[2023-11-28 16:42] LABS: Bedside Glucose 133 mg/dL (74-106)
--- NOTE | 2023-11-28 16:50 | RAD_ITS ---
INDICATION: Left foot cellulitis EXAMINATION/TECHNIQUE: X-RAY - LEFT XR Foot 3 Views COMPARISON: FINDINGS: SOFT TISSUES: There is subcutaneous edema over the dorsum of the foot. No radiopaque foreign body. BONES/JOINTS: No acute fracture or subluxation.. Normal alignment. Calcaneal spurring. Preservation of the joint space.. No sclerotic or destructive changes observed. RAD/Foot min 3 Views IMPRESSION: Subcutaneous edema. No acute bony pathology. Electronically Signed: Tree Agosto DO at 17:13 EDT ,
[2023-11-28] MEDS: Vancomycin HCl 2,000 MG in 0.9% Normal Saline (500mL Bag) 500 ML 250 MG IV (17:21)
[2023-11-28] MEDS: 0.9% Saline Lock 10 ML Syringe IV (17:22)
--- NOTE | 2023-11-28 17:55 | PCM.RX.CS ---
Consult Antibiotic Management Pharmacy has been consulted to manage selected antibiotic: Vancomycin Type of Intervention Type of Consult: New start Suspected Infection Suspected Infection: Other (UNKNOWN) Prior Doses of Antibiotics Prior Doses of Antibiotics Received/Current Regimen: Vancomycin 2000 mg IV x 1 given 11/28/23 @ 1721 Labs Labs: Sodium 136 mmol/L (136-145) 11/28/23 07:10 Potassium 2.9 mmol/L (3.5-5.1) L 11/28/23 07:10 Chloride 103 mmol/L (98-107) 11/28/23 07:10 Carbon Dioxide 24.0 mmol/L (21.0-32.0) 11/28/23 07:10 Anion Gap 9 (5-15) 11/28/23 07:10 BUN 69 mg/dL (7-18) H 11/28/23 07:10 Creatinine 3.06 mg/dL (0.70-1.30) H 11/28/23 07:10 Est GFR (MDRD) Af Amer 25 mL/min (>60) L 11/28/23 07:10 Est GFR (MDRD) Non-Af 21 mL/min (>60) L 11/28/23 07:10 BUN/Creatinine Ratio 22.5 RATIO (10-20) H 11/28/23 07:10 Glucose 154 mg/dL (74-106) H 11/28/23 07:10 Microbiology Microbiology: Microbiology 11/27/23 05:30 Mucosa - Nose SARS-CoV-2, Influenza & RSV (PCR) - Final Dosing Weight Weight used for dosin kg Estimated Creatinine Clearance Estimated Creatinine Clearance: ~19 Goal Trough Goal Trough: 15-20 mcg/mL Pharmacy Plan for Drug Dosing Pharmacy Plan for Drug Dosing: Vancomycin 2000 mg IV x 1 given, will dose by level, random on 11/29 in the AM. Pharmacy Service will continue to monitor and adjust dosing as required. Follow-Up Labs Follow-Up Labs: Trough: Vancomycin Date/Time Labs Ordered Labs to be done on [date and time ordered]: 11/30/23 @ 0600
[2023-11-28] MEDS: Tamsulosin HCl 0.4 MG Capsule PO (20:13)
[2023-11-28] MEDS: Piperacil/Tazobactam 3.375 GM in 0.9% Normal Saline (50mL MB+) 50 ML IV (21:09)
[2023-11-28 21:35] LABS: Bedside Glucose 171 mg/dL (74-106)
[2023-11-29 02:10] VITALS: BP 129/61; PULSE 65; RESP 16; TEMP 36.8; O2SAT 97
[2023-11-29] MEDS: Sucralfate 1 GM Tablet PO ×2 (05:01→16:45)
[2023-11-29] MEDS: Levothyroxine 75 MCG Tablet PO ×2 (05:01)
[2023-11-29] MEDS: Acetaminophen 325 MG Tablet 650 MG PO ×2 (05:02→20:39)
[2023-11-29] MEDS: oxyCODONE 5 MG Tablet PO ×3 (05:02→20:38)
[2023-11-29] MEDS: Enoxaparin 30 MG/0.3 ML Syringe SC (05:02)
[2023-11-29 06:27] LABS: Bedside Glucose 137 mg/dL (74-106)
[2023-11-29 07:04] LABS: Absolute Lymphocyte Count 0.86 X10^3/uL (0.83-4.51); Absolute Neutrophil Count 14.9 X10^3/uL (2.0-7.7); Basophil# 0.04 X10^3/uL; Basophil% 0.2 % (0-1); Eosinophil# 0.09 X10^3/uL; Eosinophils% 0.5 % (0-5); Hematocrit 29.6 % (40-54); Hemoglobin 9.8 g/dL (13.0-16.5); Lymphocyte # 0.86 X10^3/ul (0.83-4.51); Mean Corp Hgb Conc 33.1 g/dL (32-36); Mean Corpuscular Hgb 29.6 pg (27.0-32.0); Mean Corpuscular Volume 89.4 fL (80-94); Mean Platelet Vol. 10.9 fl (6.2-12.0); Monocyte# 0.73 X10^3/uL; Monocyte% 4.3 % (0-10); NRBC Flagged by Analyzer 0 % (0-5); Neutrophil # 14.88 X10^3/uL (2.7-7.7); Platelet Count 259 K/mm3 (150-450); Red Blood Count 3.31 M/mm3 (4.6-6.2); White Blood Count 17.1 K/mm3 (4.4-11.0)
[2023-11-29 07:26] LABS: ALB/GLOB Ratio 0.6 RATIO (0.9-2.4); AST(SGOT) 22 U/L (15-37); Alanine Aminotransfer ALT/SGPT 26 U/L (16-61); Albumin, Serum 2.3 g/dL (3.2-5.0); Alkaline Phosphatase 129 U/L (45-117); Anion Gap 6 (5-15); BUN 63 mg/dL (7-18); BUN/Creat Ratio 22.2 RATIO (10-20); Calcium,Total 8.5 mg/dL (8.5-10.1); Chloride 106 mmol/L (98-107); Creatinine, Serum 2.84 mg/dL (0.70-1.30); EST Glomerular Filtration Rate 23 mL/min (>60); Est Glom Filt Rate - Afr Amer 27 mL/min (>60); Estimated Creatinine Clearance 20.72 ml/min; Globulin 3.7 g/dL (2.2-4.2); Glucose 133 mg/dL (74-106); Magnesium 1.9 mg/dL (1.6-2.6); Potassium 3.6 mmol/L (3.5-5.1); Sodium Level 137 mmol/L (136-145)
--- NOTE | 2023-11-29 07:43 | PN.HOSP_ITS ---
Reason for Visit Reason for Visit: Diagnoses Elevated white blood cell count, unspecified (11/27/23) Rhabdomyolysis (11/27/23) Acute kidney failure, unspecified (11/27/23) Chronic kidney disease, unspecified (11/27/23) Weakness (11/27/23) Subjective Subjective Still with pain in left foot. Difficulty walking due to pain. Objective Data Objective Data Vital Signs: Vital Signs Temp Pulse Resp BP Pulse Ox O2 Del Method 36.8 C 65 16 129/61 H 97 Room Air 11/29/23 02:10 11/29/23 02:10 11/29/23 02:10 11/29/23 02:10 11/29/23 02:10 11/29/23 02:10 Oxygen Delivery Method Room Air Weight: 90 kg Body Mass Index (BMI) 31.1 Intake & Output: Intake and Output for Last 24 Hours 11/27/23 11/28/23 11/29/23 23:59 23:59 23:59 Intake Total 2467.5 / 2667.5 790 / 790 50 / 50 Output Total 250 / 800 750 / 1000 750 / 750 Balance 2217.5 / 1867.5 40 / -210 -700 / -700 Lab / Micro Data 11/29/23 05:55 11/29/23 05:55 Labs: Laboratory Results - last 24 hr 11/28/23 07:10: Sodium 136, Potassium 2.9 L, Chloride 103, Carbon Dioxide 24.0, Anion Gap 9, BUN 69 H, Creatinine 3.06 H, Estim Creat Clear Calc 19.23, Est GFR (MDRD) Af Amer 25 L, Est GFR (MDRD) Non-Af 21 L, BUN/Creatinine Ratio 22.5 H, Glucose 154 H, Calcium 8.8, Total Bilirubin 0.80, AST 37, ALT 29, Alkaline Phosphatase 118 H, Total Creatine Kinase 1106 H, Total Protein 6.3 L, Albumin 2.5 L, Globulin 3.8, Albumin/Globulin Ratio 0.7 L 11/28/23 11:26: POC Glucose 175 H 11/28/23 16:09: POC Glucose 133 H 11/28/23 21:08: POC Glucose 171 H 11/29/23 05:55: WBC 17.1 H, RBC 3.31 L, Hgb 9.8 L, Hct 29.6 L, MCV 89.4, MCH 29.6, MCHC 33.1, RDW Std Deviation 46.0 H, RDW Coeff of Anuradha 14.0, Plt Count 259, MPV 10.9, Immature Gran % (Auto) 3.000 H, Neut % (Auto) 87.0 H, Lymph % (Auto) 5.0 L, [place] % (Auto) 4.3, Eos % (Auto) 0.5, Baso % (Auto) 0.2, Absolute Neuts (auto) 14.9 H, Absolute Lymphs (auto) 0.86, Nucleated RBC % 0, Sodium 137, Potassium 3.6, Chloride 106, Carbon Dioxide 25.0, Anion Gap 6, BUN 63 H, Creatinine 2.84 H, Estim Creat Clear Calc 20.72, Est GFR (MDRD) Af Amer 27 L, Est GFR (MDRD) Non-Af 23 L, BUN/Creatinine Ratio 22.2 H, Glucose 133 H, Calcium 8.5, Magnesium 1.9, Total Bilirubin 1.00, AST 22, ALT 26, Alkaline Phosphatase 129 H, Total Protein 6.0 L, Albumin 2.3 L, Globulin 3.7, Albumin/Globulin Ratio 0.6 L 11/29/23 06:06: POC Glucose 137 H Micro: Microbiology 11/27/23 05:30 Mucosa - Nose SARS-CoV-2, Influenza & RSV (PCR) - Final Radiography Diagnostic Testing: Radiology Impression Gallbladder Ultrasound 11/28/23 06:30 IMPRESSION: Sludge is seen in the gallbladder lumen. Fatty infiltration of the liver. Electronically Signed: Kartik Gerber MD at 10:24 EDT , Foot X-Ray 11/28/23 16:50 IMPRESSION: Subcutaneous edema. No acute bony pathology. Electronically Signed: Tree Agosto DO at 17:13 EDT , Physical Exam Const alert Constitutional Narrative: appears much more comfortable. Resp normal respiratory effort, no retractions, no use of accessory muscles and clear to auscultation bilaterally Cardio regular rate, regular rhythm, S1 normal heart sound and S2 normal heart sound GI normal to inspection, nondistended, normoactive bowel sounds, soft to palpation, non-tender and non-distended Extremity Extremity Narrative: improved erythema left foot. Neuro Sensorium / Orientation: awake and alert Assessment & Plan Assessment/Plan (1) Ibiwn-gm-qwhroyd kidney injury: (2) Rhabdomyolysis: (3) Leukocytosis: (4) Generalized weakness: PLAN: Plan GABI * Improved * on chronic kidney disease stage IV * Continue with IV fluids cautiously. Hold diuretics: Holding spironolactone and torsemide. Additionally holding on sacubitril/valsartan. Rhabdomyolysis * Secondary to fall. I suspect pt was down for longer than he thinks. * No further IV fluids given the patient's history of heart failure * Trending down. Left foot cellulitis * noted on 11/27 * xray showed SQ edema. * started on vanc and pip/tazo Leukocytosis * Trending down. * Likely due to Left foot cellulitis * COVID-19, influenza, RSV negative. BCx so far negative. * Continue to hold off on antibiotics at this point. * He did have a hip injection that had steroids, but that was 2-months ago. Therefore, I do not feel that is a contributing factor. * Monitor for now. Debility * Likely multifactorial given advanced age, multiple medical comorbidities * PT OT * CM to evaluate for discharge disposition * Hold gabapentin. Given advanced age, multiple medical comorbidities, GABI--too high risk at this time. Cannot determine if contributing to debility at this time. Hypokalemia * Improved after replacement. * Continue to monitor for now. Chronic conditions: * chronic HFrEF. Compensated at this time. No available records in [employer], but I spoke with his framing carpenter in 06/28/21 and it was 15% at that time. Hold Entresto, furosemide, spironolactone at this time given GABI. Continue metoprolol succinate. * DM2: non-insulin dependent. Continue glimepiride. Add SSI. * Depression: continue sertraline * BPH: continue tamsulosin VTE prophylaxis: continue with enoxaparin. Code status: DW patient. DNRCCA, ok for short-term intubation. Disposition: TBD Charges/Coding Visit Charges Inpatient E&M: 81303 Subs Hosp L2
[2023-11-29 07:59] VITALS: BP 121/52; PULSE 60; RESP 16; TEMP 36.7; O2SAT 97
[2023-11-29] MEDS: Glimepiride 1 MG Tablet PO (08:10)
[2023-11-29] MEDS: Ferrous Sulfate 325 MG Tablet PO (08:10)
[2023-11-29] MEDS: Piperacil/Tazobactam 3.375 GM in 0.9% Normal Saline (50mL MB+) 50 ML IV ×2 (09:40→20:38)
[2023-11-29] MEDS: Atorvastatin Calcium 40 MG Tablet PO (09:42)
[2023-11-29] MEDS: Pantoprazole Sodium 40 MG Tablet PO ×2 (09:46→20:40)
[2023-11-29 09:47] VITALS: PULSE 60
[2023-11-29] MEDS: Metoprolol(XL)Succ 100 MG Tablet PO (09:47)
[2023-11-29] MEDS: Colestipol 1 GM TABLET 0.5 GM PO (09:48)
[2023-11-29] MEDS: Sertraline 50 MG Tablet PO (09:48)
[2023-11-29] MEDS: Insulin Lispro 100 UNIT/ML INSULN.PEN SC (12:00)
[2023-11-29 12:39] LABS: Bedside Glucose 153 mg/dL (74-106)
--- NOTE | 2023-11-29 12:42 | CASEMGMT ---
Social Work SW met w/pt in room in regard to discharge plan. Pt states plans to go home from here. His ex- lives next door and is willing to help him. Pt states his foot is starting to feel better. SW spoke w/pt about the option of a senior care facility in the event that he cannot manage at home. Pt was agreeable to SW providing a list of facilities. SW gave pt a list from [facility] of senior care facilities, in network w/pt's insurance, in pt's preferred geographic area, and complete w/quality and resource use data. SW explained will check back on Friday to see how things go with therapy tomorrow. SW explained if going to a senior care facility for rehab is indicated, would ask pt to choose 2-3 facilities off of the list, and then SW will send referrals to see who has beds and who can take pt. Pt states understanding. Plan TBD, home v/SNF, SW/CM will follow up on Friday. JAQUAN Angulo
[2023-11-29 15:07] VITALS: BP 119/54; PULSE 61; RESP 16; TEMP 36.7; O2SAT 99
[2023-11-29 17:04] LABS: Bedside Glucose 82 mg/dL (74-106)
[2023-11-29] MEDS: Tamsulosin HCl 0.4 MG Capsule PO (20:40)
[2023-11-29 21:00] VITALS: BP 124/60; PULSE 68; RESP 18; TEMP 36.7; O2SAT 98
[2023-11-30 05:30] VITALS: BP 147/60; PULSE 68; RESP 18; TEMP 36.8; O2SAT 100
[2023-11-30] MEDS: Enoxaparin 30 MG/0.3 ML Syringe SC (05:42)
[2023-11-30] MEDS: Sucralfate 1 GM Tablet PO ×2 (05:42→16:28)
[2023-11-30 06:20] LABS: Hematocrit 32.4 % (40-54); Hemoglobin 10.8 g/dL (13.0-16.5); Mean Corp Hgb Conc 33.3 g/dL (32-36); Mean Corpuscular Hgb 30.2 pg (27.0-32.0); Mean Corpuscular Volume 90.5 fL (80-94); Mean Platelet Vol. 10.4 fl (6.2-12.0); POSITIVE COUNT YES; POSITIVE MORPHOLOGY YES; Platelet Count 291 K/mm3 (150-450); RBC Distribution Width CV 14.1 % (11.6-14.6); RBC Distribution Width SD 46.6 fl (35.1-43.9); Red Blood Count 3.58 M/mm3 (4.6-6.2); White Blood Count 14.2 K/mm3 (4.4-11.0)
[2023-11-30 06:27] LABS: Differential Indicated MANUAL DIFF
[2023-11-30 06:36] LABS: Anion Gap 8 (5-15); BUN 55 mg/dL (7-18); BUN/Creat Ratio 21.2 RATIO (10-20); Calcium,Total 8.9 mg/dL (8.5-10.1); Chloride 105 mmol/L (98-107); Creatinine, Serum 2.59 mg/dL (0.70-1.30); EST Glomerular Filtration Rate 25 mL/min (>60); Est Glom Filt Rate - Afr Amer 31 mL/min (>60); Estimated Creatinine Clearance 22.72 ml/min; Glucose 93 mg/dL (74-106); Potassium 3.5 mmol/L (3.5-5.1); Sodium Level 136 mmol/L (136-145); Vancomycin, Trough Level 14.7 ug/mL (5.0-15.0)
--- NOTE | 2023-11-30 06:42 | PCM.RX.CS ---
Consult Antibiotic Management Pharmacy has been consulted to manage selected antibiotic: Vancomycin Type of Intervention Type of Consult: Follow-up Suspected Infection Suspected Infection: Skin/Soft tissue Labs Labs: Sodium 136 mmol/L (136-145) 11/30/23 06:12 Potassium 3.5 mmol/L (3.5-5.1) 11/30/23 06:12 Chloride 105 mmol/L (98-107) 11/30/23 06:12 Carbon Dioxide 23.0 mmol/L (21.0-32.0) 11/30/23 06:12 Anion Gap 8 (5-15) 11/30/23 06:12 BUN 55 mg/dL (7-18) H 11/30/23 06:12 Creatinine 2.59 mg/dL (0.70-1.30) H 11/30/23 06:12 Est GFR (MDRD) Af Amer 31 mL/min (>60) L 11/30/23 06:12 Est GFR (MDRD) Non-Af 25 mL/min (>60) L 11/30/23 06:12 BUN/Creatinine Ratio 21.2 RATIO (10-20) H 11/30/23 06:12 Glucose 93 mg/dL (74-106) 11/30/23 06:12 Vancomycin Trough 14.7 ug/mL (5.0-15.0) 11/30/23 06:12 Microbiology Microbiology: Microbiology 11/27/23 07:45 Blood Culture (Wb) - Left Wrist Blood Culture - Preliminary No growth in 48 hours. 11/27/23 07:25 Blood Culture (Wb) - Anticubital Left Blood Culture - Preliminary No growth in 48 hours. 11/27/23 05:30 Mucosa - Nose SARS-CoV-2, Influenza & RSV (PCR) - Final Estimated Creatinine Clearance Estimated Creatinine Clearance: 22 Goal Trough Goal Trough: 15-20 mcg/mL Pharmacy Plan for Drug Dosing Pharmacy Plan for Drug Dosing: VANCOMYCIN LEVEL RECEIVED Current Vancomycin Dose: by drug level Number of Doses Received: 2000mg x1 Vancomycin Level: 14.7 Hours Since Last Dose: 37 Renal Function: sCr 2.59 (CrCl 22 ml/min) Renal Function Trend: stable (CKD) Vancomycin Plan/Comments: Vancomycin 750mg Q24H Pending Level: Vancomycin trough @ 07:00 12/02/23 Pharmacy Service will continue to monitor and adjust dosing as required. Follow-Up Labs Follow-Up Labs: Trough: Vancomycin (07:00 12/02/23)
[2023-11-30 07:02] LABS: Bedside Glucose 65 mg/dL (74-106)
[2023-11-30] MEDS: Vancomycin HCl 750 MG in 0.9% Normal Saline (250mL Bag) 250 ML 250 MG IV (08:21)
[2023-11-30] MEDS: Ferrous Sulfate 325 MG Tablet PO (08:35)
[2023-11-30] MEDS: Ondansetron 4 MG/2 ML Vial IV (08:35)
[2023-11-30] MEDS: Vancomycin Trough/Random Due 1 LAB MC (08:36)
[2023-11-30] MEDS: Glimepiride 1 MG Tablet PO (08:36)
[2023-11-30 08:47] VITALS: BP 140/60; PULSE 71; RESP 16; TEMP 36.6; O2SAT 98
[2023-11-30 09:12] LABS: Lymphocyte 15 % (19-41); Metamyelocyte 2 % (0-1); Monocyte 3 % (0-10); Neutrophil-Segmented 80 % (47-70); Platelet Estimate ADEQUATE (ADEQ); Red Cell Morphology NORM C+C NORMAL (NORM C&C); Total Cells Counted 100 (MANUAL DIFF)
[2023-11-30 09:13] LABS: Absolute Lymphocyte Count 2.13 X10^3/uL (0.83-4.51); Absolute Neutrophil Count 11.4 X10^3/uL (2.0-7.7); Lymphocyte # 2.13 X10^3/ul (0.83-4.51)
[2023-11-30] MEDS: Piperacil/Tazobactam 3.375 GM in 0.9% Normal Saline (50mL MB+) 50 ML IV ×2 (10:59→21:30)
[2023-11-30 11:03] VITALS: PULSE 71
[2023-11-30] MEDS: Atorvastatin Calcium 40 MG Tablet PO (11:03)
[2023-11-30] MEDS: Metoprolol(XL)Succ 100 MG Tablet PO (11:03)
[2023-11-30] MEDS: Pantoprazole Sodium 40 MG Tablet PO ×2 (11:03→21:19)
[2023-11-30] MEDS: Sertraline 50 MG Tablet PO (11:04)
[2023-11-30] MEDS: oxyCODONE 5 MG Tablet PO ×2 (11:08→21:18)
[2023-11-30] MEDS: Acetaminophen 325 MG Tablet 650 MG PO ×2 (12:07→21:18)
[2023-11-30 14:02] VITALS: BP 127/53; PULSE 67; RESP 16; TEMP 36.6; O2SAT 95
--- NOTE | 2023-11-30 15:38 | PN.HOSP_ITS ---
Reason for Visit Reason for Visit: Diagnoses Elevated white blood cell count, unspecified (11/27/23) Rhabdomyolysis (11/27/23) Acute kidney failure, unspecified (11/27/23) Chronic kidney disease, unspecified (11/27/23) Weakness (11/27/23) Objective Data Objective Data Vital Signs: Vital Signs Temp Pulse Resp BP Pulse Ox O2 Del Method 97.8 F 67 16 127/53 H 95 Room Air 11/30/23 14:02 11/30/23 14:02 11/30/23 14:02 11/30/23 14:02 11/30/23 14:02 11/30/23 14:02 Oxygen Delivery Method Room Air Weight: 198 lb 6.656 oz Body Mass Index (BMI) 31.1 Intake & Output: Intake and Output for Last 24 Hours 11/28/23 11/29/23 11/30/23 23:59 23:59 23:59 Intake Total 790 / 790 100 / 100 315 / 315 Output Total 750 / 1000 1350 / 1350 800 / 800 Balance 40 / -210 -1250 / -1250 -485 / -485 Lab / Micro Data 11/30/23 06:12 11/30/23 06:12 Labs: Laboratory Results - last 24 hr 11/29/23 16:43: POC Glucose 82 11/30/23 05:36: POC Glucose 65 L 11/30/23 06:12: WBC 14.2 H, RBC 3.58 L, Hgb 10.8 L, Hct 32.4 L, MCV 90.5, MCH 30.2, MCHC 33.3, RDW Std Deviation 46.6 H, RDW Coeff of Anuradha 14.1, Plt Count 291, MPV 10.4, Neut % (Auto) Not Reportable, Absolute Neuts (auto) 11.4 H, Absolute Lymphs (auto) 2.13, Total Counted 100, Neutrophils % (Manual) 80 H, Lymphocytes % (Manual) 15 L, Monocytes % (Manual) 3, Metamyelocytes % 2 H, Diff Path Review May foll, Platelet Estimate ADEQUATE, RBC Morphology NORM C+C, Sodium 136, Potassium 3.5, Chloride 105, Carbon Dioxide 23.0, Anion Gap 8, BUN 55 H, Creatinine 2.59 H, Estim Creat Clear Calc 22.72, Est GFR (MDRD) Af Amer 31 L, Est GFR (MDRD) Non-Af 25 L, BUN/Creatinine Ratio 21.2 H, Glucose 93, Calcium 8.9, Vancomycin Trough 14.7 Micro: Microbiology 11/27/23 07:45 Blood Culture (Wb) - Left Wrist Blood Culture - Preliminary No growth in 48 hours. 11/27/23 07:25 Blood Culture (Wb) - Anticubital Left Blood Culture - Preliminary No growth in 48 hours. 11/27/23 05:30 Mucosa - Nose SARS-CoV-2, Influenza & RSV (PCR) - Final Physical Exam Narrative Seen and examined. Patient admitted with fall and mild increase in creatinine kinase. Complain of left fifth toe and lateral foot margin painful and tender. Has seen Dr. Isra juarez breaking machine operator in the past as an office patient. No fever Physical exam General: Alert, Oriented x3, Cooperative HEENT: Atraumatic, PERRLA, EOMI, Normocephalic Oral: Oral mucosa moist. No Gingival or Mucosal Lesions/ Ulcerations Neck: Supple, No JVD, Negative Carotid Bruits Chest wall/Lungs: Air entry diminished in bilateral lung bases. No crepitation/rhonchi Cardiovascular: Regular rate, Regular Rhythm, Normal S1, Normal S2, No M/G/R Abdomen: Bowel Sounds Present, Soft, Non Tender, Non-Distended : No dysuria. No renal angle tenderness. No suprapubic tenderness. Extremities: No edema, Capillary Refill Less than 3 Seconds Skin: Erythematous rash over left lateral margin. Left inguinal tender lymphadenopathy. Musculoskeletal: Tenderness present over lateral margin of left foot including fifth toe with redness and swelling. Cellulitis. Neurological: Cranial nerves II-XII grossly intact, DTR 2+/4. No acute focal neurological deficit. Psych/Mental Status: Normal Affect, Appropriate. Assessment & Plan Assessment/Plan (1) Gfcji-ye-hlfzoad kidney injury: (2) Rhabdomyolysis: (3) Leukocytosis: (4) Generalized weakness: PLAN: Plan GABI * Improved * on chronic kidney disease stage IV * Continue with IV fluids cautiously. Hold diuretics: Holding spironolactone and torsemide. Additionally holding on sacubitril/valsartan. 11/29: Creatinine has improved from 3.86 to 2.59. Rhabdomyolysis * Secondary to fall. I suspect pt was down for longer than he thinks. * No further IV fluids given the patient's history of heart failure 11/29: CK improving. Repeat CK tomorrow morning. Left foot cellulitis * noted on 11/27 with subcutaneous edema along left lateral margin of toe, tender to left inguinal adenopathy. * xray showed SQ edema. * started on vanc and pip/tazo 11/29: Will consult breaking machine operator. Leukocytosis * Trending down. * Likely due to Left foot cellulitis * COVID-19, influenza, RSV negative. BCx so far negative. 11/29: Leukocytosis improving. Debility * Likely multifactorial given advanced age, multiple medical comorbidities * PT OT * CM to evaluate for discharge disposition * Hold gabapentin. Given advanced age, multiple medical comorbidities, GABI--too high risk at this time. Cannot determine if contributing to debility at this time. Hypokalemia * Improved after replacement. * Continue to monitor for now. Chronic conditions: * chronic HFrEF. Compensated at this time. No available records in [employer], but I spoke with his pig machine supervisor in 06/28/21 and it was 15% at that time. Hold Entresto, furosemide, spironolactone at this time given GABI. Continue metoprolol succinate. * DM2: non-insulin dependent. Continue glimepiride. Add SSI. * Depression: continue sertraline * BPH: continue tamsulosin VTE prophylaxis: continue with enoxaparin. Code status: DW patient. DNRCCA, ok for short-term intubation. Disposition: TBD Charges/Coding Visit Charges Inpatient E&M: 26691 Subs Hosp L2
[2023-11-30] MEDS: Miconazole Nitrate Cream 1 APPLIC TOPICAL ×2 (16:33→21:19)
[2023-11-30 16:59] LABS: Bedside Glucose 94 mg/dL (74-106)
[2023-11-30] MEDS: Tamsulosin HCl 0.4 MG Capsule PO (21:19)
[2023-11-30 21:28] LABS: Bedside Glucose 119 mg/dL (74-106)
[2023-11-30 21:48] VITALS: BP 148/78; PULSE 68; RESP 18; TEMP 36.7; O2SAT 98
[2023-12-01 05:00] VITALS: BP 152/63; PULSE 64; RESP 16; TEMP 36.7; O2SAT 98
[2023-12-01] MEDS: Levothyroxine 75 MCG Tablet PO (05:53)
[2023-12-01] MEDS: Sucralfate 1 GM Tablet PO ×2 (05:53→16:38)
[2023-12-01] MEDS: oxyCODONE 5 MG Tablet PO ×3 (06:01→20:31)
[2023-12-01] MEDS: Acetaminophen 325 MG Tablet 650 MG PO ×3 (06:01→22:01)
[2023-12-01] MEDS: Enoxaparin 30 MG/0.3 ML Syringe SC (06:04)
[2023-12-01 06:25] LABS: Bedside Glucose 66 mg/dL (74-106)
[2023-12-01] MEDS: Vancomycin HCl 750 MG in 0.9% Normal Saline (250mL Bag) 250 ML 250 MG IV (06:30)
[2023-12-01 06:45] LABS: Absolute Lymphocyte Count 0.81 X10^3/uL (0.83-4.51); Absolute Neutrophil Count 13.3 X10^3/uL (2.0-7.7); Basophil# 0.08 X10^3/uL; Basophil% 0.5 % (0-1); Eosinophil# 0.33 X10^3/uL; Eosinophils% 2.1 % (0-5); Hematocrit 30.4 % (40-54); Lymphocyte # 0.81 X10^3/ul (0.83-4.51); Mean Corp Hgb Conc 32.9 g/dL (32-36); Mean Corpuscular Hgb 29.7 pg (27.0-32.0); Mean Corpuscular Volume 90.2 fL (80-94); Mean Platelet Vol. 10.5 fl (6.2-12.0); Monocyte# 0.73 X10^3/uL; Monocyte% 4.5 % (0-10); NRBC Flagged by Analyzer 0 % (0-5); Neutrophil # 13.32 X10^3/uL (2.7-7.7); Platelet Count 327 K/mm3 (150-450); RBC Distribution Width CV 14.4 % (11.6-14.6); RBC Distribution Width SD 47.5 fl (35.1-43.9); Red Blood Count 3.37 M/mm3 (4.6-6.2); White Blood Count 16.1 K/mm3 (4.4-11.0)
[2023-12-01 07:05] LABS: Anion Gap 6 (5-15); BUN 49 mg/dL (7-18); BUN/Creat Ratio 21.1 RATIO (10-20); Calcium,Total 8.9 mg/dL (8.5-10.1); Chloride 109 mmol/L (98-107); Creatinine, Serum 2.32 mg/dL (0.70-1.30); EST Glomerular Filtration Rate 29 mL/min (>60); Est Glom Filt Rate - Afr Amer 35 mL/min (>60); Estimated Creatinine Clearance 25.36 ml/min; Glucose 66 mg/dL (74-106); Potassium 3.6 mmol/L (3.5-5.1); Sodium Level 139 mmol/L (136-145)
--- NOTE | 2023-12-01 07:43 | CON.PCM_ITS ---
Assessment & Plan Assessment/Plan (1) Displaced fracture of proximal phalanx of left lesser toe(s), initial encounter for closed fracture: (2) Chronic pain of toe of left foot: (3) Rhabdomyolysis: (4) Generalized weakness: (5) Hypertension: (6) Congestive heart failure: PLAN: Plan Patient seen and evaluated Patient stated that he usually sees Dr. Saenz and recently had appointment with him prior to his admission. I reviewed his prior workup for rhabdo and possible infectious ideology. WBC on admission 25.7 has trended down and currently 16; rhabdo is improving Patient has been started on vancomycin IV Patient thought to have cellulitis however there is no evidence of open wound, no evidence of ingrown toenail. On examination patient does have rubor with ecchymosis about the fifth digit with pain to palpation of the base of the proximal phalanx midshaft of the proximal phalanx and range of motion of the fifth metatarsal phalangeal joint. There is deformity/angulation of the fifth digit. Prior radiographs from 11/28/2023 reviewed and interpreted as negative for acute bony pathology. I however disagree with the radiology read and note there is a mildly displaced proximal phalanx fracture of the fifth digit left foot. Discussed with patient that he has a fracture of the fifth digit proximal phalanx of the left foot. Discussed protected ambulation in surgical shoe to the left foot. Discussed fracture healing with the patient today. Discussed he will need to ambulate in the surgical shoe at all times for the next 4 to 6 weeks with return to shoe pending radiographic healing. Discussed continued elevation of the left foot at times of rest for edema control. May take oxycodone-acetaminophen 5/325mg every 6 hours as needed pain. May alternate with Tylenol 650 mg every 4 hours as needed pain. Medicine team currently following for medical management, they are greatly appr eciated. At this time no surgical intervention is needed for mildly displaced fracture of the fifth proximal phalanx digit of the left foot. Will continue the conservative management plan as stated above. Patient will follow-up in office for continued fracture care. Please do not hesitate to reach out with any questions or concerns. Jr. Anson Hutson.P.M. [facility] [phone] HPI Consult Data Date of Consult: 05/13/24 HPI Narrative Reason for Consultation: Cellulitis fifth digit and left foot swelling HPI Narrative: MEGAN SANDHU, is a 83 M who presents to [facility] on 11/27/2023 with weakness and falls. Patient states that he had difficulty getting up from bed and slid down the bed and was unable to get back up. Denies hitting his head. States that he could not get back up from the ground and did roll around shifting positions and is unsure of how long he was down. Upon presentation to the ED WBC was 25.7. He did undergo infectious workup which was negative. CPK noted to be 2351, BNP 610.2, creatinine 3.86. He was admitted for rhabdo and received IVF in the ED. Radiographs were also obtained of the left foot on 11/28/2023 due to left foot pain and were interpreted as negative. Patient was seen in consultation for cellulitis of the left fifth digit. Patient denies N/V/F/chills. Patient does state he has pain in the fifth toe and around the outside of the foot. Denies further complaints. [facility] Medical History Anticoagulant-induced bleeding Benign positional vertigo Blood transfusion during current hospitalisation CKD (chronic kidney disease), stage IV Diabetes GI bleed HFrEF (heart failure with reduced ejection fraction) Hiatal hernia MIAU (minor aphthous ulceration) Pulmonary embolism Home Medications levothyroxine 75 mcg tablet 75 mcg PO DAILY thyroid 06/28/21 [History Last Taken Unknown] mecobalamin (vitamin B12) 1,000 mcg chewable tablet (B12 Active) 1,000 mcg PO DAILY anemia 06/28/21 [History Last Taken Unknown] metoprolol succinate 100 mg tablet,extended release 24 hr 100 mg PO DAILY heart 06/28/21 [History Last Taken Unknown] pwfirnqflszb-zld-xndbe acid-vit K-lycop 400 mcg-20 mcg-370 mcg tablet (Men's 50 Plus Multivitamin) 1 tab PO DAILY not on pcp med list 06/28/21 [History Last Taken Unknown] potassium chloride 20 mEq tablet,extended release(part/cryst) 20 meq PO BID not on pcp med list 06/28/21 [History Last Taken Unknown] sertraline 25 mg tablet 25 mg PO DAILY mdoffice 06/28/21 [History Last Taken Unknown] spironolactone 25 mg tablet 25 mg PO DAILY not on pcp list 06/28/21 [History Last Taken Unknown] tamsulosin 0.4 mg capsule 0.4 mg PO DAILY per md office list 06/28/21 [History Last Taken Unknown] ferrous sulfate 325 mg (65 mg iron) tablet 325 mg PO DAILY #30 tabs 07/01/21 [Rx Last Taken Unknown] gabapentin 600 mg tablet 600 mg PO BID #0 tabs 08/22/21 [Rx Last Taken Unknown] pantoprazole 40 mg tablet,delayed release 40 mg PO BID #120 tabs 09/21/21 [Rx Last Taken Unknown] sucralfate 100 mg/mL oral suspension 10 ml PO BID md office #1,000 mL 09/21/21 [Rx Last Taken Unknown] colestipol 1 gram tablet 0.5 g (1/2 x 1 gram) PO .every other day 30 days #30 tabs 11/19/21 [Rx Last Taken Unknown] gabapentin 400 mg capsule 400 mg PO TID per md office list 11/27/23 [History Last Taken Unknown] glimepiride 1 mg tablet 1 mg PO DAILY per pcp med list 11/27/23 [History Last Taken Unknown] rosuvastatin 20 mg tablet 20 mg PO DAILY per pcp 11/27/23 [History Last Taken Unknown] sacubitril 24 mg-valsartan 26 mg tablet (Entresto) 1 tab PO BID per pcp med list 11/27/23 [History Last Taken Unknown] sertraline 50 mg tablet 50 mg PO DAILY per md office 11/27/23 [History Last Taken Unknown] sildenafil 100 mg tablet PO per pcp med list 11/27/23 [History Last Taken Unknown] sucralfate 1 gram tablet (Carafate) 1 g PO BID per MD office list 11/27/23 [History Last Taken Unknown] tadalafil 20 mg tablet (Cialis) 20 mg PO DAILY PRN sexual activity 11/27/23 [Hi story Last Taken Unknown] torsemide 20 mg tablet 40 mg PO BID per md of 11/27/23 [History Last Taken Unknown] Allergy/AdvReac Type Severity Reaction Status Date / Time No Known Allergies Allergy Verified 11/27/23 04:42 Family History Other Cancer Hypertension Surgical History History of permanent cardiac pacemaker placement Social History household members: spouse Smoking Status: Never smoker alcohol intake: never substance use type: does not use ROS Constitutional Constitutional: Denies anorexia, body ache(s), fatigue or night sweats Eyes Eyes: Denies diplopia, erythema or loss of vision ENT HEENT: Denies dysphagia, rhinorrhea or sore throat Cardiovascular Cardiovascular: Denies chest pain, claudication or palpitations Respiratory/Chest Respiratory/Chest: Denies cough, dyspnea or shortness of breath at rest Gastrointestinal Gastrointestinal: Denies abdominal pain, constipation, diarrhea, dysphagia, nausea or vomiting Genitourinary Genitourinary: Denies dysuria, hematuria or urinary urgency Musculoskeletal Musculoskeletal: Denies joint pain, joint stiffness or joint swelling Integumentary Integumentary: Denies jaundice, lesions, pruritus or rash Neurologic Neurologic: Denies dizziness, numbness or seizures Psychiatric Psychiatric: Denies anxiety or depression Endocrine Endocrinology: Denies cold intolerance or heat intolerance Hematologic/Lymphatic Hematologic/Lymphatic: Denies easy bleeding or easy bruising Allergic/Immunologic Allergic/Immunologic: Denies wheezing Physical Exam Const alert, oriented x3 and no apparent distress General Appearance: cooperative HEENT normocephalic Eyes General Eye: normal appearance of both eyes Neck General: normal visual inspection Lymph Lymphatic: no lymphadenopathy noted and no lymphedema noted Resp normal respiratory effort Cardio regular rate and regular rhythm Extremity Extremity Narrative: Vascular: DP and PT pulses weakly palpable bilateral. Capillary fill time less than 5 seconds to digits bilateral. Normal temperature gradient bilateral. Hair growth is absent to digits bilateral. Neurologic: Gross sensation intact. Light touch sensation is diminished. Protective sensation is diminished to bilateral foot consistent with diabetic peripheral polyneuropathy. Dermatologic: There is rubor about the fifth digit and fifth metatarsal head in addition to ecchymosis plantar fifth digit of the left foot. There is soft tissue swelling about the fifth digit dorsal foot and lateral foot. No evidence of open wounds. Right foot demonstrates normal appearance. Musculoskeletal: Muscle strength 5 of 5 age-appropriate to the right foot and left foot. There is pain to palpation about the base of the fifth digit and fifth metatarsal head of the left foot and pain directly over the proximal phalanx of the fifth digit and pain with range of motion of the fifth metat arsophalangeal joint.. No pain along fifth metatarsal shaft or base. No pain to palpation along peroneal tendons. No pain to palpation along the fourth metatarsal or fourth digit. Skin no rashes or lesions noted, skin turgor normal and no jaundice Neuro moves all extremities Lab / Micro Data 12/01/23 05:41 12/01/23 05:41 Labs: Laboratory Results - last 24 hr 11/30/23 06:12: Absolute Neuts (auto) 11.4 H, Absolute Lymphs (auto) 2.13, Total Counted 100, Neutrophils % (Manual) 80 H, Lymphocytes % (Manual) 15 L, Monocytes % (Manual) 3, Metamyelocytes % 2 H, Diff Path Review November, Platelet Estimate ADEQUATE, RBC Morphology NORM C+C 11/30/23 11:58: POC Glucose 119 H 11/30/23 16:30: POC Glucose 94 12/01/23 05:41: WBC 16.1 H, RBC 3.37 L, Hgb 10.0 L, Hct 30.4 L, MCV 90.2, MCH 29.7, MCHC 32.9, RDW Std Deviation 47.5 H, RDW Coeff of Anuradha 14.4, Plt Count 327, MPV 10.5, Immature Gran % (Auto) 4.900 H, Neut % (Auto) 83.0 H, Lymph % (Auto) 5 .0 L, [place] % (Auto) 4.5, Eos % (Auto) 2.1, Baso % (Auto) 0.5, Absolute Neuts (auto) 13.3 H, Absolute Lymphs (auto) 0.81 L, Nucleated RBC % 0, Sodium 139, Potassium 3.6, Chloride 109 H, Carbon Dioxide 24.0, Anion Gap 6, BUN 49 H, Creatinine 2.32 H, Estim Creat Clear Calc 25.36, Est GFR (MDRD) Af Amer 35 L, Est GFR (MDRD) Non-Af 29 L, BUN/Creatinine Ratio 21.1 H, Glucose 66 L, Calcium 8.9 12/01/23 05:45: POC Glucose 66 L
[2023-12-01 08:11] VITALS: PULSE 60
[2023-12-01] MEDS: Pantoprazole Sodium 40 MG Tablet PO ×2 (08:11→22:03)
[2023-12-01] MEDS: Metoprolol(XL)Succ 100 MG Tablet PO (08:11)
--- NOTE | 2023-12-01 08:11 | WOUNDNOTE ---
Was asked to see patient for redness to the left foot. left foot is painful to touch. Dr Muñiz had been in this am to assess the foot. there are no open areas noted. some redness noted to the left 5th toe and dorsal foot. pt not really able to move the toe. Dr Muñiz states x-ray did not show a fracture but there was not a great visual of the 5th toe. will monitor. pt states the redness appears improved today. see skin photos.
[2023-12-01] MEDS: Ferrous Sulfate 325 MG Tablet PO (08:12)
[2023-12-01] MEDS: Glimepiride 1 MG Tablet PO (08:12)
[2023-12-01] MEDS: Colestipol 1 GM TABLET 0.5 GM PO (08:12)
[2023-12-01] MEDS: Miconazole Nitrate Cream 1 APPLIC TOPICAL ×2 (08:13→22:02)
[2023-12-01] MEDS: Atorvastatin Calcium 40 MG Tablet PO (08:13)
[2023-12-01] MEDS: Sertraline 50 MG Tablet PO (08:15)
--- NOTE | 2023-12-01 08:36 | WOUNDNOTE ---
skin photo: left foot
--- NOTE | 2023-12-01 08:37 | WOUNDNOTE ---
skin photo: left foot
[2023-12-01 09:01] VITALS: BP 130/49; PULSE 60; RESP 16; TEMP 36.7; O2SAT 96
--- NOTE | 2023-12-01 10:10 | CASEMGMT ---
Addendum entered by Chiquita Ochoa 12/01/23 11:52: Social Work Pt's daughter Shaylee called back, SW let her know that there are no beds in [facility]. SW asked her to review the list in pt's room and give SW additional choices once she speaks w/her family. Shaylee states understanding. JAQUAN Angulo Addendum entered by Chiquita Ochoa 12/01/23 11:50: Social Work TCU cannot take pt. SW called pt's daughter Shaylee to update her, message left. SW will continue to follow. JAQUAN Angulo Addendum entered by Chiquita Ochoa 12/01/23 11:10: Social Work Pt's daughter Issac called, she states that TCU is their first choice. SW explained will make referral. SRIRAM inquired who should be the main contact for the pt, she states it can still be Shaylee, but she wanted to call to let SW know that they would like pt to go to TCU. Referral made to TCU, SW will continue to follow. JAQUAN Angulo Original Note: Social Work SW met w/pt this morning in regard to discharge plan. Pt still stating wants to go home. SRIRAM explained that it appears by the PT notes pt would not manage at home, even with the assist of his exwife. Pt agreeable to have SW call his daughter Shaylee listed on the face sheet, he states his daughters do help w/decisions. SRIRAM called Shaylee, spoke w/her in regard to plan. SRIRAM explained to Shaylee that pt wants to go home but at this time does not look to be moving well enough w/PT to go home. Shaylee states they are getting pt's carpets cleaned today so they really do not want pt going home today. SRIRAM again explained that pt is not moving well, and does not seem going home after this hospitalization is the appropriate plan. SRIRAM explained pt has said his exwife Zuleyka can help pt, but he needs more help than she can likely provide. Shaylee states understanding, does seem in agreement w/this. She wants to speak w/pt's two other children about the best plan. SW let her know that there is a list of nursing homes in the room that pt did accept on Friday. SRIRAM asked Shaylee to review the list w/family and let SW know where they would like referrals sent. She states understanding. She will be here some time today,and will speak w/pt about this as well. SW will continue to follow, daughter to let SW know SNF choices after has a chance to speak w/pt and review w/family. JAQUAN Angulo
[2023-12-01] MEDS: Piperacil/Tazobactam 3.375 GM in 0.9% Normal Saline (50mL MB+) 50 ML IV ×2 (10:31→22:02)
[2023-12-01 10:40] VITALS: BP 134/55; PULSE 63; RESP 16; TEMP 36.6; O2SAT 98
[2023-12-01 11:33] LABS: Bedside Glucose 72 mg/dL (74-106)
[2023-12-01 16:19] VITALS: BP 134/49; PULSE 62; RESP 16; TEMP 36.4; O2SAT 96
[2023-12-01 16:33] LABS: Bedside Glucose 58 mg/dL (74-106)
--- NOTE | 2023-12-01 17:09 | PN.HOSP_ITS ---
Reason for Visit Reason for Visit: Diagnoses Elevated white blood cell count, unspecified (11/27/23) Other chronic pain (11/27/23) Essential (primary) hypertension (11/27/23) Heart failure, unspecified (11/27/23) Rhabdomyolysis (11/27/23) Pain in left toe(s) (11/27/23) Acute kidney failure, unspecified (11/27/23) Chronic kidney disease, unspecified (11/27/23) Weakness (11/27/23) Displaced fracture of proximal phalanx of left lesser toe(s), initial encounter for closed fracture (11/27/23) Objective Data Objective Data Vital Signs: Vital Signs Temp Pulse Resp BP Pulse Ox O2 Del Method 97.6 F L 62 16 134/49 H 96 Room Air 12/01/23 16:19 12/01/23 16:19 12/01/23 16:19 12/01/23 16:19 12/01/23 16:19 12/01/23 16:19 Oxygen Delivery Method Room Air Weight: 198 lb 6.656 oz Body Mass Index (BMI) 31.1 Intake & Output: Intake and Output for Last 24 Hours 11/29/23 11/30/23 12/01/23 23:59 23:59 23:59 Intake Total 100 / 100 365 / 365 715 / 715 Output Total 1350 / 1350 800 / 800 550 / 550 Balance -1250 / -1250 -435 / -435 165 / 165 Lab / Micro Data 12/01/23 05:41 12/01/23 05:41 Labs: Laboratory Results - last 24 hr 11/30/23 11:58: POC Glucose 119 H 12/01/23 05:41: WBC 16.1 H, RBC 3.37 L, Hgb 10.0 L, Hct 30.4 L, MCV 90.2, MCH 29.7, MCHC 32.9, RDW Std Deviation 47.5 H, RDW Coeff of Anuradha 14.4, Plt Count 327, MPV 10.5, Immature Gran % (Auto) 4.900 H, Neut % (Auto) 83.0 H, Lymph % (Auto) 5.0 L, [place] % (Auto) 4.5, Eos % (Auto) 2.1, Baso % (Auto) 0.5, Absolute Neuts (auto) 13.3 H, Absolute Lymphs (auto) 0.81 L, Nucleated RBC % 0, Sodium 139, Potassium 3.6, Chloride 109 H, Carbon Dioxide 24.0, Anion Gap 6, BUN 49 H, C reatinine 2.32 H, Estim Creat Clear Calc 25.36, Est GFR (MDRD) Af Amer 35 L, Est GFR (MDRD) Non-Af 29 L, BUN/Creatinine Ratio 21.1 H, Glucose 66 L, Calcium 8.9 12/01/23 05:45: POC Glucose 66 L 12/01/23 10:58: POC Glucose 72 L 12/01/23 15:49: POC Glucose 58 L Micro: Microbiology 11/27/23 07:45 Blood Culture (Wb) - Left Wrist Blood Culture - Preliminary No growth in 48 hours. 11/27/23 07:25 Blood Culture (Wb) - Anticubital Left Blood Culture - Preliminary No growth in 48 hours. 11/27/23 05:30 Mucosa - Nose SARS-CoV-2, Influenza & RSV (PCR) - Final Physical Exam Narrative Seen and examined. Patient admitted with fall and mild increase in creatinine kinase. Complain of left fifth toe and lateral foot margin painful and tender. No fever. Patient was seen by Dr. Muñiz. Physical exam General: Alert, Oriented x3, Cooperative HEENT: Atraumatic, PERRLA, EOMI, Normocephalic Oral: Oral mucosa moist. No Gingival or Mucosal Lesions/ Ulcerations Neck: Supple, No JVD, Negative Carotid Bruits Chest wall/Lungs: Air entry diminished in bilateral lung bases. No crepitation/rhonchi Cardiovascular: Regular rate, Regular Rhythm, Normal S1, Normal S2, No M/G/R Abdomen: Bowel Sounds Present, Soft, Non Tender, Non-Distended : No dysuria. No renal angle tenderness. No suprapubic tenderness. Extremities: No edema, Capillary Refill Less than 3 Seconds Skin: Erythematous rash over left lateral margin. Left inguinal tender lymphadenopathy. Musculoskeletal: Tenderness present over lateral margin of left foot including fifth toe with redness and swelling. Cellulitis. Still very tender and does not allow movement. Neurological: Cranial nerves II-XII grossly intact, DTR 2+/4. No acute focal neurological deficit. Psych/Mental Status: Normal Affect, Appropriate. Assessment & Plan Assessment/Plan (1) [id number] kidney injury: (2) Rhabdomyolysis: (3) Leukocytosis: (4) Generalized weakness: PLAN: Plan GABI * Improved * on chronic kidney disease stage IV * Continue with IV fluids cautiously. Hold diuretics: Holding spironolactone and torsemide. Additionally holding on sacubitril/valsartan. 11/29: Creatinine has improved from 3.86 to 2.59. 11/30: BUNs/creatinine 49/2.32. Creatinine improving. Rhabdomyolysis * Secondary to fall. I suspect pt was down for longer than he thinks. * No further IV fluids given the patient's history of heart failure 11/29: CK improving. Repeat CK tomorrow morning. Left foot cellulitis * noted on 11/27 with subcutaneous edema along left lateral margin of toe, tender to left inguinal adenopathy. * xray showed SQ edema. * started on vanc and pip/tazo 11/29: Will consult veneer splicer. 11/30: X-ray shows fracture of the fifth digit proximal phalanx of left foot. Protected ambulation surgical shoe of the left foot recommended. No surgical intervention by veneer splicer. Pain controlled. Blood cultures negative for more than 48 hours. Leukocytosis * Trending down. * Likely due to Left foot cellulitis * COVID-19, influenza, RSV negative. BCx so far negative. 11/29: Leukocytosis improving. 12/18 labs reviewed. Debility * Likely multifactorial given advanced age, multiple medical comorbidities * PT OT * CM to evaluate for discharge disposition * Hold gabapentin. Given advanced age, multiple medical comorbidities, GABI--too high risk at this time. Cannot determine if contributing to debility at this time. Hypokalemia * Improved after replacement. * Continue to monitor for now. Chronic conditions: * chronic HFrEF. Compensated at this time. No available records in [facility], but I spoke with his eap consultant in 06/28/21 and it was 15% at that time. Hold Entresto, furosemide, spironolactone at this time given GABI. Continue metoprolol succinate. * DM2: non-insulin dependent. Continue glimepiride. Add SSI. 11/30: Patient had hypoglycemic episode therefore is scheduled insulin and oral hypoglycemic agent discontinued. * Depression: continue sertraline * BPH: continue tamsulosin VTE prophylaxis: continue with enoxaparin. Code status: DW patient. DNRCCA, ok for short-term intubation. Disposition: TBD Charges/Coding Visit Charges Inpatient E&M: 80507 Subs Hosp L2
[2023-12-01 19:12] LABS: M R Staph aureus DNA By PCR Negative (Negative); Probe Check PASS; Specimen Processing Control PASS
[2023-12-01 20:18] VITALS: BP 140/52; PULSE 67; RESP 18; TEMP 36.9; O2SAT 97
[2023-12-01] MEDS: Tamsulosin HCl 0.4 MG Capsule PO (22:03)
[2023-12-01 22:26] LABS: Bedside Glucose 77 mg/dL (74-106)
[2023-12-02 03:00] VITALS: BP 151/61; PULSE 63; RESP 16; TEMP 36.6; O2SAT 99
[2023-12-02] MEDS: Acetaminophen 325 MG Tablet 650 MG PO ×2 (03:50→09:52)
[2023-12-02] MEDS: oxyCODONE 5 MG Tablet PO ×2 (03:50→09:51)
[2023-12-02] MEDS: Piperacil/Tazobactam 3.375 GM in 0.9% Normal Saline (50mL MB+) 50 ML IV (07:04)
[2023-12-02] MEDS: Levothyroxine 75 MCG Tablet PO (07:04)
[2023-12-02] MEDS: Enoxaparin 30 MG/0.3 ML Syringe SC (07:04)
[2023-12-02] MEDS: Sucralfate 1 GM Tablet PO (07:04)
--- NOTE | 2023-12-02 07:17 | PN.HOSP_ITS ---
Reason for Visit Reason for Visit: Diagnoses Elevated white blood cell count, unspecified (11/27/23) Other chronic pain (11/27/23) Essential (primary) hypertension (11/27/23) Heart failure, unspecified (11/27/23) Rhabdomyolysis (11/27/23) Pain in left toe(s) (11/27/23) Acute kidney failure, unspecified (11/27/23) Chronic kidney disease, unspecified (11/27/23) Weakness (11/27/23) Displaced fracture of proximal phalanx of left lesser toe(s), initial encounter for closed fracture (11/27/23) Objective Data Objective Data Vital Signs: Vital Signs Temp Pulse Resp BP Pulse Ox O2 Del Method 97.8 F 63 16 151/61 H 99 Room Air 12/02/23 03:00 12/02/23 03:00 12/02/23 03:00 12/02/23 03:00 12/02/23 03:00 12/02/23 03:00 Oxygen Delivery Method Room Air Weight: 198 lb 6.656 oz Body Mass Index (BMI) 31.1 Intake & Output: Intake and Output for Last 24 Hours 11/30/23 12/01/23 12/02/23 23:59 23:59 23:59 Intake Total 365 / 365 1165 / 1165 950 / 950 Output Total 800 / 800 550 / 550 900 / 900 Balance -435 / -435 615 / 615 50 / 50 Lab / Micro Data 12/01/23 05:41 12/01/23 05:41 Labs: Laboratory Results - last 24 hr 12/01/23 10:58: POC Glucose 72 L 12/01/23 15:49: POC Glucose 58 L 12/01/23 17:20: MRSA (PCR) Negative 12/01/23 22:00: POC Glucose 77 Micro: Microbiology 11/27/23 07:45 Blood Culture (Wb) - Left Wrist Blood Culture - Preliminary No growth in 48 hours. 11/27/23 07:25 Blood Culture (Wb) - Anticubital Left Blood Culture - Preliminary No growth in 48 hours. 11/27/23 05:30 Mucosa - Nose SARS-CoV-2, Influenza & RSV (PCR) - Final Physical Exam Narrative Seen and examined. Patient admitted with fall and mild increase in creatinine kinase. Complain of left fifth toe and lateral foot margin painful and tender. No fever. Patient was seen by Dr. Muñiz. Physical exam General: Alert, Oriented x3, Cooperative HEENT: Atraumatic, PERRLA, EOMI, Normocephalic Oral: Oral mucosa moist. No Gingival or Mucosal Lesions/ Ulcerations Neck: Supple, No JVD, Negative Carotid Bruits Chest wall/Lungs: Air entry diminished in bilateral lung bases. No crepitation/rhonchi Cardiovascular: Regular rate, Regular Rhythm, Normal S1, Normal S2, No M/G/R Abdomen: Bowel Sounds Present, Soft, Non Tender, Non-Distended : No dysuria. No renal angle tenderness. No suprapubic tenderness. Extremities: No edema, Capillary Refill Less than 3 Seconds Skin: Erythematous rash over left lateral margin. Left inguinal tender lymphadenopathy. Musculoskeletal: Tenderness present over lateral margin of left foot including fifth toe with redness and swelling. Cellulitis. Still very tender and does not allow movement. Neurological: Cranial nerves II-XII grossly intact, DTR 2+/4. No acute focal neurological deficit. Psych/Mental Status: Normal Affect, Appropriate. Assessment & Plan Assessment/Plan (1) Zhksa-qz-oarepfk kidney injury: (2) Rhabdomyolysis: (3) Leukocytosis: (4) Generalized weakness: PLAN: Plan No sepsis. Does not meet SIRS criteria. 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 Hold diuretics: Holding spironolactone and torsemide. Additionally holding on sacubitril/valsartan. 11/29: Creatinine has improved from 3.86 to 2.59. 11/30: BUNs/creatinine 49/2.32. Creatinine improving. Rhabdomyolysis * Secondary to fall. I suspect pt was down for longer than he thinks. * No further IV fluids given the patient's history of heart failure 11/29: CK improving. Repeat CK tomorrow morning. Left foot cellulitis * noted on 11/27 with subcutaneous edema along left lateral margin of toe, tender to left inguinal adenopathy. * xray showed SQ edema. * started on vanc and pip/tazo 11/29: Will consult machine operator transplanter. 11/30: X-ray shows fracture of the fifth digit proximal phalanx of left foot. Protected ambulation surgical shoe of the left foot recommended. No surgical intervention by machine operator transplanter. Pain controlled. Blood cultures negative for more than 48 hours. Leukocytosis * Trending down. * Likely due to Left foot cellulitis * COVID-19, influenza, RSV negative. BCx so far negative. 11/29: Leukocytosis improving. 12/18 labs reviewed. Debility * Likely multifactorial given advanced age, multiple medical comorbidities * PT OT * CM to evaluate for discharge disposition * Hold gabapentin. Given advanced age, multiple medical comorbidities, GABI--too high risk at this time. Cannot determine if contributing to debility at this time. Hypokalemia * Improved after replacement. * Continue to monitor for now. Chronic conditions: * chronic HFrEF. Compensated at this time. No available records in [employer], but I spoke with his electric blanket wirer in 06/28/21 and it was 15% at that time. Hold Entresto, furosemide, spironolactone at this time given GABI. Continue metoprolol succinate. * DM2: non-insulin dependent. Continue glimepiride. Add SSI. 11/30: Patient had hypoglycemic episode therefore is scheduled insulin and oral hypoglycemic agent discontinued. * Depression: continue sertraline * BPH: continue tamsulosin VTE prophylaxis: continue with enoxaparin. Code status: DW patient. DNRCCA, ok for short-term intubation. Disposition: TBD
[2023-12-02 07:19] LABS: Hematocrit 31.2 % (40-54); Hemoglobin 9.9 g/dL (13.0-16.5); Mean Corp Hgb Conc 31.7 g/dL (32-36); Mean Corpuscular Hgb 28.9 pg (27.0-32.0); Mean Platelet Vol. 10.3 fl (6.2-12.0); POSITIVE COUNT YES; POSITIVE MORPHOLOGY YES; Platelet Count 375 K/mm3 (150-450); RBC Distribution Width CV 14.5 % (11.6-14.6); RBC Distribution Width SD 48.2 fl (35.1-43.9); Red Blood Count 3.43 M/mm3 (4.6-6.2)
[2023-12-02 07:25] LABS: Bedside Glucose 50 mg/dL (74-106)
[2023-12-02 07:25] LABS: Differential Indicated MANUAL DIFF
[2023-12-02 07:45] LABS: Anion Gap 4 (5-15); BUN 39 mg/dL (7-18); BUN/Creat Ratio 16.8 RATIO (10-20); Calcium,Total 8.7 mg/dL (8.5-10.1); Chloride 111 mmol/L (98-107); Creatinine, Serum 2.32 mg/dL (0.70-1.30); EST Glomerular Filtration Rate 29 mL/min (>60); Est Glom Filt Rate - Afr Amer 35 mL/min (>60); Estimated Creatinine Clearance 25.36 ml/min; Glucose 56 mg/dL (74-106); Potassium 3.9 mmol/L (3.5-5.1); Sodium Level 141 mmol/L (136-145)
[2023-12-02 07:53] LABS: Vancomycin, Trough Level 17.2 ug/mL (5.0-15.0)
[2023-12-02 08:05] LABS: Bedside Glucose 72 mg/dL (74-106)
--- NOTE | 2023-12-02 08:11 | PCM.RX.CS ---
Consult Antibiotic Management Pharmacy has been consulted to manage selected antibiotic: Vancomycin Type of Intervention Type of Consult: Follow-up Prior Doses of Antibiotics Prior Doses of Antibiotics Received/Current Regimen: current dose is vanc 750mg IV q24h Labs Labs: Sodium 141 mmol/L (136-145) 12/02/23 07:00 Potassium 3.9 mmol/L (3.5-5.1) 12/02/23 07:00 Chloride 111 mmol/L (98-107) H 12/02/23 07:00 Carbon Dioxide 26.0 mmol/L (21.0-32.0) 12/02/23 07:00 Anion Gap 4 (5-15) L 12/02/23 07:00 BUN 39 mg/dL (7-18) H 12/02/23 07:00 Creatinine 2.32 mg/dL (0.70-1.30) H 12/02/23 07:00 Est GFR (MDRD) Af Amer 35 mL/min (>60) L 12/02/23 07:00 Est GFR (MDRD) Non-Af 29 mL/min (>60) L 12/02/23 07:00 BUN/Creatinine Ratio 16.8 RATIO (10-20) 12/02/23 07:00 Glucose 56 mg/dL (74-106) L 12/02/23 07:00 Vancomycin Trough 17.2 ug/mL (5.0-15.0) H 12/02/23 07:00 Microbiology Microbiology: Microbiology 11/27/23 07:45 Blood Culture (Wb) - Left Wrist Blood Culture - Preliminary No growth in 48 hours. 11/27/23 07:25 Blood Culture (Wb) - Anticubital Left Blood Culture - Preliminary No growth in 48 hours. 11/27/23 05:30 Mucosa - Nose SARS-CoV-2, Influenza & RSV (PCR) - Final Dosing Weight Weight used for dosin lb 6.656 oz Estimated Creatinine Clearance Estimated Creatinine Clearance: 25 ml/min Goal Trough Goal Trough: 15-20 mcg/mL Pharmacy Plan for Drug Dosing Pharmacy Plan for Drug Dosing: The vanc trough drawn at 07:00 today (approx 24.5 hours after the previous dose) was 17.2. This is within goal range so will keep same dose. Will adjust timing of dose to 11:00 per nursing request so that it can be given after the morning dose of Zosyn is completed. Patient only has one IV line. Repeat a trough in 2 days per protocol. Pharmacy Service will continue to monitor and adjust dosing as required. Follow-Up Labs Follow-Up Labs: Trough: Vancomycin Date/Time Labs Ordered Labs to be done on [date and time ordered]: 12/04/23 10:30
[2023-12-02 08:13] LABS: Eosinophil 5 % (0-5); Lymphocyte 11 % (19-41); Metamyelocyte 3 % (0-1); Monocyte 6 % (0-10); Myelocyte 3 % (0-0); Neutrophil-Band 1 % (0-5); Neutrophil-Segmented 71 % (47-70); Total Cells Counted 100 (MANUAL DIFF)
[2023-12-02 08:16] LABS: Red Cell Morphology NORM C+C NORMAL (NORM C&C)
[2023-12-02 08:17] LABS: Platelet Estimate ADEQUATE (ADEQ)
[2023-12-02 08:18] LABS: Absolute Neutrophil Count 10.1 X10^3/uL (2.0-7.7)
[2023-12-02 09:25] VITALS: PULSE 73
[2023-12-02] MEDS: Pantoprazole Sodium 40 MG Tablet PO (09:25)
[2023-12-02] MEDS: Sertraline 50 MG Tablet PO (09:25)
[2023-12-02] MEDS: Atorvastatin Calcium 40 MG Tablet PO (09:25)
[2023-12-02] MEDS: Ferrous Sulfate 325 MG Tablet PO (09:25)
[2023-12-02] MEDS: Metoprolol(XL)Succ 100 MG Tablet PO (09:25)
[2023-12-02] MEDS: Miconazole Nitrate Cream 1 APPLIC TOPICAL (09:29)
[2023-12-02 09:38] VITALS: BP 143/56; PULSE 73; RESP 18; TEMP 36.6; O2SAT 96
--- NOTE | 2023-12-02 10:03 | CASEMGMT ---
Social Work- called Shaylee, pt daughter, to further discuss d/c planning. Shaylee states that the next choice of facility for pt is [facility]. A referral will be started and pt/family updated as referral status is known. NATALYA Limon
--- NOTE | 2023-12-02 10:05 | CASEMGMT ---
Addendum entered by Marcela Huffman 12/02/23 13:13: Patient has been accepted by [facility]. SW updated. Marcela Huffman DC Planning Asst. Original Note: Discharge Planning Referral sent via [facility] to [facility]. Marcela Huffman, Discharge Planning Asst.
[2023-12-02 10:20] LABS: Pathologist Review Reviewed
[2023-12-02] MEDS: Doxycycline 100 MG CAPSULE PO (10:37)
[2023-12-02] MEDS: Amox/Clavulanate 500 MG Tablet PO (10:37)
[2023-12-02 11:56] LABS: Bedside Glucose 90 mg/dL (74-106)
--- NOTE | 2023-12-02 13:10 | TREXTCAR_ITS ---
Diet Diet Order/Speech Therapy: 11/28/23 10:04 Diet: Cardiac - Heart Healthy Is pt able to select menu?: Yes Routine Orders/Code Status Suppository Type: Dulcolax 10mg Suppository Frequency: Daily PRN Problem/Diagnosis (1) Eijok-hy-naptnft kidney injury: Status: Chronic Code(s): N17.9 - Acute kidney failure, unspecified; N18.9 - Chronic kidney disease, unspecified (2) Rhabdomyolysis: Status: Acute Code(s): M62.82 - Rhabdomyolysis (3) Leukocytosis: Status: Acute Code(s): D72.829 - Elevated white blood cell count, unspecified (4) Generalized weakness: Status: Acute Code(s): R53.1 - Weakness Plan No sepsis. Does not meet SIRS criteria. 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 Hold diuretics: Holding spironolactone and torsemide. Additionally holding on sacubitril/valsartan. 11/29: Creatinine has improved from 3.86 to 2.59. 11/30: BUNs/creatinine 49/2.32. Creatinine improving. Rhabdomyolysis * Secondary to fall. I suspect pt was down for longer than he thinks. * No further IV fluids given the patient's history of heart failure 11/29: CK improving. Repeat CK tomorrow morning. Left foot cellulitis * noted on 11/27 with subcutaneous edema along left lateral margin of toe, tender to left inguinal adenopathy. * xray showed SQ edema. * started on vanc and pip/tazo 11/29: Will consult braille coder. 11/30: X-ray shows fracture of the fifth digit proximal phalanx of left foot. Protected ambulation surgical shoe of the left foot recommended. No surgical intervention by braille coder. Pain controlled. Blood cultures negative for more than 48 hours. Leukocytosis * Trending down. * Likely due to Left foot cellulitis * COVID-19, influenza, RSV negative. BCx so far negative. 11/29: Leukocytosis improving. 12/18 labs reviewed. Debility * Likely multifactorial given advanced age, multiple medical comorbidities * PT OT * CM to evaluate for discharge disposition * Hold gabapentin. Given advanced age, multiple medical comorbidities, GABI--too high risk at this time. Cannot determine if contributing to debility at this time. Hypokalemia * Improved after replacement. * Continue to monitor for now. Chronic conditions: * chronic HFrEF. Compensated at this time. No available records in [employer], but I spoke with his reliability technician in 06/28/21 and it was 15% at that time. Hold Entresto, furosemide, spironolactone at this time given GABI. Continue metoprolol succinate. * DM2: non-insulin dependent. Continue glimepiride. Add SSI. 11/30: Patient had hypoglycemic episode therefore is scheduled insulin and oral hypoglycemic agent discontinued. * Depression: continue sertraline * BPH: continue tamsulosin VTE prophylaxis: continue with enoxaparin. Code status: DW patient. DNRCCA, ok for short-term intubation. Disposition: TBD Allergies/Procedures Done in Hospital Allergies No Known Allergies Allergy (Verified 11/27/23 04:42) Dietary and Speech Recommendations Dietitian Recommendations/Changes: continue cardiac diet; will monitor intake and adjust diet/add ONS at time of follow-up as indicated Discharge Plan Admission Admit Date/Time: 11/27/23 08:38 Primary Reason for Your Visit: Right distal fifth toe fracture with cellulitis Attending Provider: Jaden Cedillo Primary Care Provider: Joseph Durand Consulting Providers: Harvinder Sterling; Fausto Muñiz Discharge Orders/Prescriptions Prescriptions: No Action sucralfate 100 mg/mL suspension 10 ml PO BID Qty: 1000 0RF pantoprazole 40 mg tablet,delayed release (DR/EC) 40 mg PO BID Qty: 120 3RF colestipol 1 gram tablet 0.5 g PO .every other day 30 Days Qty: 30 1RF metoprolol succinate 100 mg Tablet Extended Release 24 Hr 100 mg PO DAILY spironolactone 25 mg Tablet 25 mg PO DAILY levothyroxine 75 mcg Tablet 75 mcg PO DAILY potassium chloride 20 mEq Tablet,Er Particles/Crystals 20 meq PO BID tamsulosin 0.4 mg Capsule 0.4 mg PO DAILY Rx Instructions: source is MD office not daughter in law sertraline 25 mg Tablet 25 mg PO DAILY Men's 50 Plus Multivitamin 400-20-370 mcg Tablet 1 tab PO DAILY mecobalamin (vitamin B12) [B12 Active] 1,000 mcg Tablet,Chewable 1,000 mcg PO DAILY ferrous sulfate 325 mg (65 mg iron) tablet 325 mg PO DAILY Qty: 30 0RF gabapentin 600 mg Tablet 600 mg PO BID Qty: 0 0RF Rx Instructions: 1/2 tab twice a day for 5 days, then 600mg twice a day thereafter sertraline 50 mg tablet 50 mg PO DAILY gabapentin 400 mg capsule 400 mg PO TID glimepiride 1 mg tablet 1 mg PO DAILY Rx Instructions: source is per pt PCP med list rosuvastatin 20 mg tablet 20 mg PO DAILY Rx Instructions: source is per pcp med list Entresto 24-26 mg tablet 1 tab PO BID Rx Instructions: source is from pcp office sildenafil 100 mg tablet PO Rx Instructions: source is per pcp med list tadalafil [Cialis] 20 mg tablet 20 mg PO DAILY PRN (Reason: sexual activity) Rx Instructions: administer approximately 30min before sexual activity; do not use more than 1 dose per 24hrs source is from pcp list torsemide 20 mg tablet 40 mg PO BID Rx Instructions: pt takes 40mg po BID sucralfate [Carafate] 1 gram tablet 1 g PO BID Rx Instructions: per md office list: #60 starting 11/04/23 with no refills. (source is not daughter in law however, it wont let me change the source) Referrals / Follow Up: Joseph Durand MD [Primary Care Provider] -
--- NOTE | 2023-12-02 13:10 | PCM.TXEXTCAR ---
Diet Diet Order/Speech Therapy: 11/28/23 10:04 Diet: Cardiac - Heart Healthy Is pt able to select menu?: Yes Routine Orders/Code Status Suppository Type: Dulcolax 10mg Suppository Frequency: Daily PRN Problem/Diagnosis (1) Hgula-zg-yyivwvw kidney injury: Status: Chronic Code(s): N17.9 - Acute kidney failure, unspecified; N18.9 - Chronic kidney disease, unspecified (2) Rhabdomyolysis: Status: Acute Code(s): M62.82 - Rhabdomyolysis (3) Leukocytosis: Status: Acute Code(s): D72.829 - Elevated white blood cell count, unspecified (4) Generalized weakness: Status: Acute Code(s): R53.1 - Weakness Plan No sepsis. Does not meet SIRS criteria. 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 Hold diuretics: Holding spironolactone and torsemide. Additionally holding on sacubitril/valsartan. 11/29: Creatinine has improved from 3.86 to 2.59. 11/30: BUNs/creatinine 49/2.32. Creatinine improving. Rhabdomyolysis Secondary to fall. I suspect pt was down for longer than he thinks. No further IV fluids given the patient's history of heart failure 11/29: CK improving. Repeat CK tomorrow morning. Left foot cellulitis noted on 11/27 with subcutaneous edema along left lateral margin of toe, tender to left inguinal adenopathy. xray showed SQ edema. started on vanc and pip/tazo 11/29: Will consult senior software developer. 11/30: X-ray shows fracture of the fifth digit proximal phalanx of left foot. Protected ambulation surgical shoe of the left foot recommended. No surgical intervention by senior software developer. Pain controlled. Blood cultures negative for more than 48 hours. Leukocytosis Trending down. Likely due to Left foot cellulitis COVID-19, influenza, RSV negative. BCx so far negative. 11/29: Leukocytosis improving. 12/18 labs reviewed. Debility Likely multifactorial given advanced age, multiple medical comorbidities PT OT CM to evaluate for discharge disposition Hold gabapentin. Given advanced age, multiple medical comorbidities, GABI--too high risk at this time. Cannot determine if contributing to debility at this time. Hypokalemia Improved after replacement. Continue to monitor for now. Chronic conditions: chronic HFrEF. Compensated at this time. No available records in [employer], but I spoke with his diesel technician in 06/28/21 and it was 15% at that time. Hold Entresto, furosemide, spironolactone at this time given GABI. Continue metoprolol succinate. DM2: non-insulin dependent. Continue glimepiride. Add SSI. 11/30: Patient had hypoglycemic episode therefore is scheduled insulin and oral hypoglycemic agent discontinued. Depression: continue sertraline BPH: continue tamsulosin VTE prophylaxis: continue with enoxaparin. Code status: DW patient. DNRCCA, ok for short-term intubation. Disposition: TBD Allergies/Procedures Done in Hospital Allergies No Known Allergies Allergy (Verified 11/27/23 04:42) Type of Care/Length of Stay Estimated LOS: Convalescent Care Less Than 30 days Type of Care Needed: Skilled Rehab Potential: Good Prognosis: Good Additional Orders/Day of Discharge Day of Discharge: 12/02/23 Dietary and Speech Recommendations Dietitian Recommendations/Changes: continue cardiac diet; will monitor intake and adjust diet/add ONS at time of follow-up as indicated Discharge Plan Admission Admit Date/Time: 11/27/23 08:38 Primary Reason for Your Visit: Right distal fifth toe fracture with cellulitis Attending Provider: Jaden Cedillo Primary Care Provider: Joseph Durand Consulting Providers: Harvinder Sterling; Fausto Muñiz Discharge Orders/Prescriptions Prescriptions: New doxycycline monohydrate 100 mg Capsule 100 mg PO BID 5 Days Qty: 10 0RF amoxicillin-pot clavulanate 500-125 mg Tablet 1 tab PO BIDCM 5 Days Qty: 10 0RF oxycodone 5 mg Tablet 2.5 - 5 mg PO Q4H PRN PRN (Reason: Pain Score 4-10) 3 Days Qty: 7 0RF miconazole nitrate 2 % Cream 1 applic topical BID Qty: 0 0RF Protocol: *Topical Application Instructions APPLICATION INSTRUCTIONS: left toe web spaces Rx Instructions: In the interdigital webspace in toes insulin lispro [Humalog KwikPen Insulin] 100 unit/mL Insulin Pen See Protocol subcut TIDAC Qty: 0 0RF Protocol: 3. Sliding Scale Insulin Med Dosing Condition: 150-189 mg/dl = 1 unit Condition: 190-229 mg/dl = 2 units Condition: 230-269 mg/dl = 3 units Condition: 270-309 mg/dl = 4 units Condition: 310-349 mg/dl = 5 units Condition: 350-399 mg/dl = 6 units Condition: 400-449 mg/dl = 7 units Condition: Greater than 449 call physician Protocol Text: - Use for Total Daily Dose of Insulin 37-55 units - Obsese, infected, or steroid patients MEDIUM DOSING ALGORITHIM acetaminophen 325 mg Tablet 650 mg PO Q6H PRN PRN (Reason: Pain 1-10 Or Fever >100.7) Qty: 0 0RF Continued sucralfate 100 mg/mL suspension 10 ml PO BID Qty: 1000 0RF pantoprazole 40 mg tablet,delayed release (DR/EC) 40 mg PO BID Qty: 120 3RF colestipol 1 gram tablet 0.5 g PO .every other day 30 Days Qty: 30 1RF metoprolol succinate 100 mg Tablet Extended Release 24 Hr 100 mg PO DAILY levothyroxine 75 mcg Tablet 75 mcg PO DAILY tamsulosin 0.4 mg Capsule 0.4 mg PO DAILY Rx Instructions: source is MD office not daughter in law sertraline 25 mg Tablet 25 mg PO DAILY Men's 50 Plus Multivitamin 400-20-370 mcg Tablet 1 tab PO DAILY mecobalamin (vitamin B12) [B12 Active] 1,000 mcg Tablet,Chewable 1,000 mcg PO DAILY ferrous sulfate 325 mg (65 mg iron) tablet 325 mg PO DAILY Qty: 30 0RF gabapentin 600 mg Tablet 600 mg PO BID Qty: 0 0RF Rx Instructions: 1/2 tab twice a day for 5 days, then 600mg twice a day thereafter sertraline 50 mg tablet 50 mg PO DAILY gabapentin 400 mg capsule 400 mg PO TID glimepiride 1 mg tablet 1 mg PO DAILY Rx Instructions: source is per pt PCP med list rosuvastatin 20 mg tablet 20 mg PO DAILY Rx Instructions: source is per pcp med list sildenafil 100 mg tablet PO Rx Instructions: source is per pcp med list tadalafil [Cialis] 20 mg tablet 20 mg PO DAILY PRN (Reason: sexual activity) Rx Instructions: administer approximately 30min before sexual activity; do not use more than 1 dose per 24hrs source is from pcp list sucralfate [Carafate] 1 gram tablet 1 g PO BID Rx Instructions: per md office list: #60 starting 11/04/23 with no refills. (source is not daughter in law however, it wont let me change the source) spironolactone 25 mg Tablet 25 mg PO DAILY 30 Days Qty: 0 0RF Changed torsemide 20 mg tablet 20 mg PO BID 30 Days Qty: 0 0RF Rx Instructions: pt takes 40mg po BID Held Entresto 24-26 mg tablet 1 tab PO BID Hold Instructions: Hold for at least 1 week. GABI on CKD. Rx Instructions: source is from pcp office Discontinued potassium chloride 20 mEq Tablet,Er Particles/Crystals 20 meq PO BID Referrals / Follow Up: Bushra Woodall MD [Med Staff - Consulting] - Within 2 Weeks (GABI resolved. CKD stage IV.) Fausto Muñiz DPM [Med Staff - Active Staff] - Within 2 Weeks Joseph Durand MD [Primary Care Provider] - Within 1 Week Disposition Disposition (needs filled in before D/C Order can be placed): [facility]
[2023-12-02 13:21] LABS: Pathologist Review Reviewed
--- NOTE | 2023-12-02 13:32 | DS.PCM_ITS ---
Providers Date of Admission: 11/27/23 Date of Discharge: 12/02/23 Primary Care Physician: Dr. Joseph Durand MD Consultations 11/30/23 15:43 Consult: Podiatry Routine Consulting Provider: Fausto Muñiz Reason for Consult: left foot tenderness, vivi little toe EMERGENT Consult: No MD Notified: Yes Date Notified: 11/30/23 Time Notified: 15:43 Method of Notification: Text Reason For Visit: RHABDOMYOLYSIS Diagnosis Discharge Diagnosis (1) Lgudd-hj-lffpman kidney injury: Status: Chronic Code(s): N17.9 - Acute kidney failure, unspecified; N18.9 - Chronic kidney disease, unspecified (2) Rhabdomyolysis: Status: Acute Code(s): M62.82 - Rhabdomyolysis (3) Leukocytosis: Status: Acute Code(s): D72.829 - Elevated white blood cell count, unspecified (4) Generalized weakness: Status: Acute Code(s): R53.1 - Weakness Plan 83-year-old gentleman was admitted with generalized weakness, muscle aches and pain and slid down while he was trying to stand up out of the bed on the floor. After that he could not stand again and therefore was brought to ED by EMS GABI on CKD stage IV * Improved * on chronic kidney disease stage IV * Continue with IV fluids cautiously. Hold diuretics: Holding spironolactone and torsemide. Additionally holding on sacubitril/valsartan. 11/29: Creatinine has improved from 3.86 to 2.59. 11/30: BUNs/creatinine 49/2.32. Creatinine improving. 12/01: GABI resolved. Lower dose of torsemide 20 mg twice daily resumed. Spironolactone continued for mild hypokalemia. Oral supplement potassium discontinued continue holding Entresto. Rhabdomyolysis * Secondary to fall. I suspect pt was down for longer than he thinks. * No further IV fluids given the patient's history of heart failure 11/29: CK improving. 12/01 leg pain has much improved. Left foot cellulitis * noted on 11/27 with subcutaneous edema along left lateral margin of toe, tender to left inguinal adenopathy. * xray showed SQ edema. * started on vanc and pip/tazo 11/29: Will consult gritting machine operator. 11/30: X-ray shows fracture of the fifth digit proximal phalanx of left foot. Protected ambulation surgical shoe of the left foot recommended. No surgical intervention by gritting machine operator. Pain controlled. Blood cultures negative for more than 48 hours. 12/01: Patient discharged on Augmentin and doxycycline for 5 more days. Leukocytosis * Trending down. * Likely due to Left foot cellulitis * COVID-19, influenza, RSV negative. BCx so far negative. 11/29: Leukocytosis improving. 12/01: Leukocytosis improving 14,000. Labs reviewed. Debility * Likely multifactorial given advanced age, multiple medical comorbidities * PT OT * CM to evaluate for discharge disposition * Hold gabapentin. Given advanced age, multiple medical comorbidities, GABI--too high risk at this time. Cannot determine if contributing to debility at this time. Hypokalemia * Improved after replacement. * Continue to monitor for now. 12/01 serum potassium normal range. Hypokalemia resolved. Chronic conditions: * chronic HFrEF. Compensated at this time. No available records in [facility], but I spoke with his transfusion nurse in 06/28/21 and it was 15% at that time. Hold Entresto, furosemide, spironolactone at this time given GABI. Continue metoprolol succinate. * DM2: non-insulin dependent. Continue glimepiride. Add SSI. 11/30: Patient had hypoglycemic episode therefore is scheduled insulin and oral hypoglycemic agent discontinued. 12/01 patient discharged on lower dose of insulin. * Depression: continue sertraline * BPH: continue tamsulosin VTE prophylaxis: continue with enoxaparin. Code status: DW patient. DNRCCA, ok for short-term intubation. Discharge medication reconciliation done. Discharge follow-up instructions completed. Discharge process discussed with the patient and all questions were answered to patient's satisfaction. Follow with PCP in 1 to 2 weeks. Discharged to SNF Total time spent, exact 35 minutes on discharge meds reconciliation, examination, coordination of care with nurses and ancillary staff, review of imaging and blood test and discussion with the patient on follow-up instructions. Medications at Discharge Home Medications levothyroxine 75 mcg tablet 75 mcg PO DAILY thyroid 06/28/21 mecobalamin (vitamin B12) 1,000 mcg chewable tablet (B12 Active) 1,000 mcg PO DAILY anemia 06/28/21 metoprolol succinate 100 mg tablet,extended release 24 hr 100 mg PO DAILY heart 06/28/21 ifepofqclnqb-roj-tipiq acid-vit K-lycop 400 mcg-20 mcg-370 mcg tablet (Men's 50 Plus Multivitamin) 1 tab PO DAILY not on pcp med list 06/28/21 sertraline 25 mg tablet 25 mg PO DAILY mdoffice 06/28/21 tamsulosin 0.4 mg capsule 0.4 mg PO DAILY per md office list 06/28/21 ferrous sulfate 325 mg (65 mg iron) tablet 325 mg PO DAILY #30 tabs 07/01/21 gabapentin 600 mg tablet 600 mg PO BID #0 tabs 08/22/21 pantoprazole 40 mg tablet,delayed release 40 mg PO BID #120 tabs 09/21/21 sucralfate 100 mg/mL oral suspension 10 ml PO BID md office #1,000 mL 09/21/21 colestipol 1 gram tablet 0.5 g (1/2 x 1 gram) PO .every other day 30 days #30 tabs 11/19/21 gabapentin 400 mg capsule 400 mg PO TID per md office list 11/27/23 glimepiride 1 mg tablet 1 mg PO DAILY per pcp med list 11/27/23 rosuvastatin 20 mg tablet 20 mg PO DAILY per pcp 11/27/23 sacubitril 24 mg-valsartan 26 mg tablet (Entresto) 1 tab PO BID per pcp med list 11/27/23 sertraline 50 mg tablet 50 mg PO DAILY per md office 11/27/23 sildenafil 100 mg tablet PO per pcp med list 11/27/23 sucralfate 1 gram tablet (Carafate) 1 g PO BID per MD office list 11/27/23 acetaminophen 325 mg tablet 650 mg (2 x 325 mg) PO Q6H PRN PRN Pain 1-10 Or Fever >100.7 #0 tabs 12/02/23 amoxicillin 500 mg-potassium clavulanate 125 mg tablet 1 tab PO BIDCM 5 days #10 tabs 12/02/23 doxycycline monohydrate 100 mg capsule 100 mg PO BID 5 days #10 caps 12/02/23 insulin lispro 100 unit/mL subcutaneous pen (Humalog KwikPen (U-100) Insulin) See Protocol subcut TIDAC #0 mL 12/02/23 miconazole nitrate 2 % topical cream 1 applic topical BID #0 grams 12/02/23 oxycodone 5 mg tablet 2.5 - 5 mg (0.5 - 1 x 5 mg) PO Q4H PRN PRN Pain Score 4-10 3 days #7 tabs 12/02/23 spironolactone 25 mg tablet 25 mg PO DAILY not on pcp list 30 days #0 tabs 12/02/23 torsemide 20 mg tablet 20 mg PO BID per md of 30 days #0 tabs 12/02/23 Physical Exam Narrative Seen and examined. Complain of left fifth toe and lateral foot margin painful and tender but has improved. No fever. Patient was seen by Dr. Muñiz. Physical exam General: Alert, Oriented x3, Cooperative HEENT: Atraumatic, PERRLA, EOMI, Normocephalic Oral: Oral mucosa moist. No Gingival or Mucosal Lesions/ Ulcerations Neck: Supple, No JVD, Negative Carotid Bruits Chest wall/Lungs: Air entry diminished in bilateral lung bases. No crepitation/rhonchi Cardiovascular: Regular rate, Regular Rhythm, Normal S1, Normal S2, No M/G/R Abdomen: Bowel Sounds Present, Soft, Non Tender, Non-Distended : No dysuria. No renal angle tenderness. No suprapubic tenderness. Extremities: No edema, Capillary Refill Less than 3 Seconds Skin: Erythematous rash over left lateral margin. Left inguinal tender lymphadenopathy. Musculoskeletal: Tenderness present over lateral margin of left foot including fifth toe with redness and swelling. Cellulitis and tenderness is improved Neurological: Cranial nerves II-XII grossly intact, DTR 2+/4. No acute focal neurological deficit. Psych/Mental Status: Normal Affect, Appropriate. Weight / BMI Weight Weight: 198 lb 6.656 oz Body Mass Index (BMI) 31.1 ABG / Lab / Microbiology Data 12/02/23 07:00 12/02/23 07:00 Laboratory: Laboratory Results - last 24 hr 11/30/23 06:12: Diff Path Review Reviewed 12/01/23 15:49: POC Glucose 58 L 12/01/23 17:20: MRSA (PCR) Negative 12/01/23 22:00: POC Glucose 77 12/02/23 06:56: POC Glucose 50 L 12/02/23 07:00: WBC 14.0 H, RBC 3.43 L, Hgb 9.9 L, Hct 31.2 L, MCV 91.0, MCH 28.9, MCHC 31.7 L, RDW Std Deviation 48.2 H, RDW Coeff of Anuradha 14.5, Plt Count 375, MPV 10.3, Neut % (Auto) Not Reportable, Absolute Neuts (auto) 10.1 H, Absolute Lymphs (auto) 1.50, Total Counted 100, Neutrophils % (Manual) 71 H, Band Neutrophils % 1, Lymphocytes % (Manual) 11 L, Monocytes % (Manual) 6, Eosinophils % (Manual) 5, Metamyelocytes % 3 H, Myelocytes % 3 H, Diff Path Review Reviewed, Platelet Estimate ADEQUATE, RBC Morphology NORM C+C, Sodium 141, Potassium 3.9, Chloride 111 H, Carbon Dioxide 26.0, Anion Gap 4 L, BUN 39 H , Creatinine 2.32 H, Estim Creat Clear Calc 25.36, Est GFR (MDRD) Af Amer 35 L, Est GFR (MDRD) Non-Af 29 L, BUN/Creatinine Ratio 16.8, Glucose 56 L, Calcium 8.7, Vancomycin Trough 17.2 H 12/02/23 07:40: POC Glucose 72 L 12/02/23 11:38: POC Glucose 90 Microbiology: Microbiology 11/27/23 07:45 Blood Culture (Wb) - Left Wrist Blood Culture - Final No growth in 5 days. 11/27/23 07:25 Blood Culture (Wb) - Anticubital Left Blood Culture - Final No growth in 5 days. 11/27/23 05:30 Mucosa - Nose SARS-CoV-2, Influenza & RSV (PCR) - Final Meaningful Use Info Meaningful Use Meaningful Use Diagnoses (Choose all that apply): None applicable Ischemic Stroke Statin Dosing Therapy Reference: STATIN DOSE THERAPY REFERENCE: * Patients > 75 years receive moderate or high dose statin therapy. * Patients 75 years or YOUNGER should receive HIGH intensity statin dose unless contraindicated. You will be required to document reason for non-treatment if statin daily dose does not meet guidelines. HIGH DOSE STATIN THERAPY DAILY Atorvastatin > than or = to 40 mg Rosuvastatin > than or = to 20 mg Amlodipine + Atorvastatin > than or = to 2.5/40 mg Ezetimibe + Simvastatin 10/80 mg Simvastatin 80mg Discharge Plan Admission Admit Date/Time: 11/27/23 08:38 Primary Reason for Your Visit: Right distal fifth toe fracture with cellulitis Attending Provider: Jaden Cedillo Primary Care Provider: Joseph Durand Consulting Providers: Harvinder Sterling; Fausto Muñiz Discharge Orders/Prescriptions Prescriptions: New doxycycline monohydrate 100 mg Capsule 100 mg PO BID 5 Days Qty: 10 0RF amoxicillin-pot clavulanate 500-125 mg Tablet 1 tab PO BIDCM 5 Days Qty: 10 0RF oxycodone 5 mg Tablet 2.5 - 5 mg PO Q4H PRN PRN (Reason: Pain Score 4-10) 3 Days Qty: 7 0RF miconazole nitrate 2 % Cream 1 applic topical BID Qty: 0 0RF Protocol: *Topical Application Instructions APPLICATION INSTRUCTIONS: left toe web spaces Rx Instructions: In the interdigital webspace in toes insulin lispro [Humalog KwikPen Insulin] 100 unit/mL Insulin Pen See Protocol subcut TIDAC Qty: 0 0RF Protocol: 3. Sliding Scale Insulin Med Dosing Condition: 150-189 mg/dl = 1 unit Condition: 190-229 mg/dl = 2 units Condition: 230-269 mg/dl = 3 units Condition: 270-309 mg/dl = 4 units Condition: 310-349 mg/dl = 5 units Condition: 350-399 mg/dl = 6 units Condition: 400-449 mg/dl = 7 units Condition: Greater than 449 call physician Protocol Text: - Use for Total Daily Dose of Insulin 37-55 units - Obsese, infected, or steroid patients MEDIUM DOSING ALGORITHIM acetaminophen 325 mg Tablet 650 mg PO Q6H PRN PRN (Reason: Pain 1-10 Or Fever >100.7) Qty: 0 0RF Continued sucralfate 100 mg/mL suspension 10 ml PO BID Qty: 1000 0RF pantoprazole 40 mg tablet,delayed release (DR/EC) 40 mg PO BID Qty: 120 3RF colestipol 1 gram tablet 0.5 g PO .every other day 30 Days Qty: 30 1RF metoprolol succinate 100 mg Tablet Extended Release 24 Hr 100 mg PO DAILY levothyroxine 75 mcg Tablet 75 mcg PO DAILY tamsulosin 0.4 mg Capsule 0.4 mg PO DAILY Rx Instructions: source is MD office not daughter in law sertraline 25 mg Tablet 25 mg PO DAILY Men's 50 Plus Multivitamin 400-20-370 mcg Tablet 1 tab PO DAILY mecobalamin (vitamin B12) [B12 Active] 1,000 mcg Tablet,Chewable 1,000 mcg PO DAILY ferrous sulfate 325 mg (65 mg iron) tablet 325 mg PO DAILY Qty: 30 0RF gabapentin 600 mg Tablet 600 mg PO BID Qty: 0 0RF Rx Instructions: 1/2 tab twice a day for 5 days, then 600mg twice a day thereafter sertraline 50 mg tablet 50 mg PO DAILY gabapentin 400 mg capsule 400 mg PO TID glimepiride 1 mg tablet 1 mg PO DAILY Rx Instructions: source is per pt PCP med list rosuvastatin 20 mg tablet 20 mg PO DAILY Rx Instructions: source is per pcp med list sildenafil 100 mg tablet PO Rx Instructions: source is per pcp med list sucralfate [Carafate] 1 gram tablet 1 g PO BID Rx Instructions: per md office list: #60 starting 11/04/23 with no refills. (source is not daughter in law however, it wont let me change the source) spironolactone 25 mg Tablet 25 mg PO DAILY 30 Days Qty: 0 0RF Changed torsemide 20 mg tablet 20 mg PO BID 30 Days Qty: 0 0RF Rx Instructions: pt takes 40mg po BID Held Entresto 24-26 mg tablet 1 tab PO BID Hold Instructions: Hold for at least 1 week. GABI on CKD. Rx Instructions: source is from pcp office Discontinued potassium chloride 20 mEq Tablet,Er Particles/Crystals 20 meq PO BID tadalafil [Cialis] 20 mg tablet 20 mg PO DAILY PRN (Reason: sexual activity) Rx Instructions: administer approximately 30min before sexual activity; do not use more than 1 dose per 24hrs source is from pcp list Referrals / Follow Up: Bushra Woodall MD [Med Staff - Consulting] - Within 2 Weeks (GABI resolved. CKD stage IV.) Fausto Muñiz DPM [Med Staff - Active Staff] - Within 2 Weeks Joseph Durand MD [Primary Care Provider] - Within 1 Week Disposition Disposition (needs filled in before D/C Order can be placed): [facility] Charges/Coding Visit Charges Inpatient E&M: 35106 Disch Hosp >30min
--- NOTE | 2023-12-02 14:02 | PHA.DC_ITS ---
Pharmacy CT Med Reconciliation Pharmacy Service has performed discharge medication reconciliation for this patient. The patient's discharge medication list was reviewed for discrepancies and discrepancies were resolved. Medications at Discharge Home Medications levothyroxine 75 mcg tablet 75 mcg PO DAILY thyroid 06/28/21 mecobalamin (vitamin B12) 1,000 mcg chewable tablet (B12 Active) 1,000 mcg PO DAILY anemia 06/28/21 metoprolol succinate 100 mg tablet,extended release 24 hr 100 mg PO DAILY heart 06/28/21 iatafarsssvn-yyq-cgwqc acid-vit K-lycop 400 mcg-20 mcg-370 mcg tablet (Men's 50 Plus Multivitamin) 1 tab PO DAILY not on pcp med list 06/28/21 tamsulosin 0.4 mg capsule 0.4 mg PO DAILY per md office list 06/28/21 ferrous sulfate 325 mg (65 mg iron) tablet 325 mg PO DAILY #30 tabs 07/01/21 pantoprazole 40 mg tablet,delayed release 40 mg PO BID #120 tabs 09/21/21 sucralfate 100 mg/mL oral suspension 10 ml PO BID md office #1,000 mL 09/21/21 colestipol 1 gram tablet 0.5 g (1/2 x 1 gram) PO .every other day 30 days #30 tabs 11/19/21 gabapentin 400 mg capsule 400 mg PO TID per md office list 11/27/23 glimepiride 1 mg tablet 1 mg PO DAILY per pcp med list 11/27/23 rosuvastatin 20 mg tablet 20 mg PO DAILY per pcp 11/27/23 sacubitril 24 mg-valsartan 26 mg tablet (Entresto) 1 tab PO BID per pcp med list 11/27/23 sertraline 50 mg tablet 50 mg PO DAILY per md office 11/27/23 sildenafil 100 mg tablet PO per pcp med list 11/27/23 sucralfate 1 gram tablet (Carafate) 1 g PO BID per MD office list 11/27/23 acetaminophen 325 mg tablet 650 mg (2 x 325 mg) PO Q6H PRN PRN Pain 1-10 Or Fever >100.7 #0 tabs 12/02/23 amoxicillin 500 mg-potassium clavulanate 125 mg tablet 1 tab PO BIDCM 5 days #10 tabs 12/02/23 doxycycline monohydrate 100 mg capsule 100 mg PO BID 5 days #10 caps 12/02/23 insulin lispro 100 unit/mL subcutaneous pen (Humalog KwikPen (U-100) Insulin) S ee Protocol subcut TIDAC #0 mL 12/02/23 miconazole nitrate 2 % topical cream 1 applic topical BID #0 grams 12/02/23 oxycodone 5 mg tablet 2.5 - 5 mg (0.5 - 1 x 5 mg) PO Q4H PRN PRN Pain Score 4-10 3 days #7 tabs 12/02/23 spironolactone 25 mg tablet 25 mg PO DAILY not on pcp list 30 days #0 tabs 12/02/23 torsemide 20 mg tablet 20 mg PO BID per md of 30 days #0 tabs 12/02/23
[2023-12-02 14:12] VITALS: BP 143/55; PULSE 65; RESP 18; TEMP 36.6; O2SAT 97
--- NOTE | 2023-12-02 14:37 | CASEMGMT ---
Social Work- Precert has been obtained.? Physician updated and pt is ready for discharge today.? 7000 convalescent form completed in [facility] and sent along with discharge orders to [facility] via [facility].? Transportation arranged with [facility] for 4:30pm pickup via ground ambualnce.? SW called pt daughter, Shaylee, and they are agreeable to discharge plan as stated above.?Pt daughter asked to tell pt. Bedside nurse notified of discharge time. Disposition:? [facility]??, skilled level of care under convalescent stay. NATALYA Limon
--- NOTE | 2023-12-02 14:51 | NURSING ---
Report called to Barbi at [facility] [phone]. Pt to be picked up today at 16:30.
--- NOTE | 2023-12-02 16:31 | CASEMGMT ---
Social Work SW received message that pt's dgt prefer to transport pt to the SNF. SW met with two dgts. Dgts are upset that discharge is happening today and feel pt needs more time to process discharge plan. SW offered support to dgts and explained rehab section at [place]. With dgts permission, SW met with pt and one daughter. SW spent time with pt explaining concerns with returning home at this time and reasoning for SNF. Also discussed reasoning for discharge today. SW explained SNF stay at a nursing facility and insurance coverage. Empathetic listening and emotional support provided to pt regarding need for SNF. SW provided time for pt and dgt to be alone and discuss discharge plan. Nursing made aware. Dgt came to front worker stating pt is now agreeable and ready to discharge to [place]. Dgt's plan to transport. Transportation cancelled with [facility]. [place] updated on dc plan. NATALYA Gilliland
--- NOTE | 2023-12-02 16:46 | NURSING ---
Once discharge order was in and daughters were informed that he was leaving today at 16:30 they both came in and asked to speak with the nurse. This RN went down to the room and spoke with both daughters outside of the room. They proceeded to yell at this nurse about the way he was treated and the condition of how the ER looked when the pt was first brought in here. Then they were asking why their father was not bathed and shaved today? He was not fit to go anywhere looking like that stated the one daughter. This RN informed her that the pt refused to be cleaned up this am. She then informed me that it was all in the way on how it was worded to the pt. I apologized for this and explained that we could not make him do it we could just ask again later. They then went on about how they wanted the ambulance ride canceled and the one sister was just going over to [place] to see if the room was going to be ok for her father. While she left the Soical worker Azul came into the room and talked with pt and the daughter. They decided to go ahead with taking him to [place]. Pt was dressed and this RN and PROTEIN CHEMIST took him down and loaded him into a private car. On the way to car one daughter apologized several times for how they acted they were just upset that it was a short notice to inform the dad that he was going to a long term.
== END 2023-12-02 16:41 | disposition skilled nursing facility (03) | DRG 565 ==
LOC: ED 08:41 → MS3 09:36
PROVIDERS: Emergency Provider Emergency Medicine; PCP Family Medicine; Visit Provider Internal Medicine
DX: T79.6XXA Traumatic ischemia of muscle, initial encounter (principal); N17.9 Acute kidney failure, unspecified; I13.0 Hypertensive heart and chronic kidney disease with heart failure and stage 1 through stage 4 chronic kidney disease, or unspecified chronic kidney disease; I50.22 Chronic systolic (congestive) heart failure; N18.4 Chronic kidney disease, stage 4 (severe); L03.116 Cellulitis of left lower limb; E11.22 Type 2 diabetes mellitus with diabetic chronic kidney disease; F32.A Depression, unspecified; E87.6 Hypokalemia; S92.512A Displaced fracture of proximal phalanx of left lesser toe(s), initial encounter for closed fracture; W19.XXXA Unspecified fall, initial encounter; Z79.01 Long term (current) use of anticoagulants; Z66 Do not resuscitate; R53.81 Other malaise; Z79.84 Long term (current) use of oral hypoglycemic drugs; G89.29 Other chronic pain; N40.0 Benign prostatic hyperplasia without lower urinary tract symptoms
CPT/HCPCS: 36415; 71045; 71250; 73630; 74176; 76705; 80048; 80053; 80202; 81001; 82550; 82962; 83605; 83735; 83880; 84145; 84443; 85025; 87040; 87426; 87631; 87641; 97110; 97162; 97166; 97530; 97802; 99283; J7030; J7040; J7050; A4216; J2405

== ENCOUNTER → 2024-04-16 | Outpatient (CLI) | payer MEDICARE, OTHER, SELFPAY ==
[2024-04-16 18:45] LABS: Anion Gap 10 (5-15); BUN 44 mg/dL (7-18); BUN/Creat Ratio 16.9 RATIO (10-20); Calcium,Total 8.7 mg/dL (8.5-10.1); Chloride 100 mmol/L (98-107); Cholesterol 274 mg/dL (200); Creatinine, Serum 2.61 mg/dL (0.70-1.30); EST Glomerular Filtration Rate 25 mL/min (>60); Est Glom Filt Rate - Afr Amer 30 mL/min (>60); Glucose 161 mg/dL (74-106); High Density Lipoprotein 28 mg/dL; Potassium 3.4 mmol/L (3.5-5.1); Sodium Level 136 mmol/L (136-145); Triglycerides 644 mg/dL
== END | disposition home or self-care (01) ==
LOC: MFPLAB 14:26
PROVIDERS: PCP Family Medicine; Visit Provider Family Medicine
DX: Z00.00 Encounter for general adult medical examination without abnormal findings (principal); E11.9 Type 2 diabetes mellitus without complications
CPT/HCPCS: 36415; 80048; 80061; 84443

== ENCOUNTER → 2024-09-27 | Outpatient (CLI) | payer MEDICARE, OTHER, SELFPAY ==
[2024-09-27 18:08] LABS: Hemoglobin A1c 6.5 % (<=5.6)
[2024-09-27 18:18] LABS: Anion Gap 17 (5-15); BUN 34 mg/dL (4-19); BUN/Creat Ratio 14.3 RATIO (10-20); Calcium,Total 8.9 mg/dL (7.6-11.0); Carbon Dioxide 19.8 mmol/L (21.0-32.0); Chloride 103 mmol/L (98-108); Cholesterol 152 mg/dL (<=200); Creatinine, Serum 2.36 mg/dL (0.70-1.20); EST Glomerular Filtration Rate 26 (>60); Glucose 142 mg/dL (70-99); High Density Lipoprotein 34 mg/dL; Low Density Lipoprotein Calc. 82 mg/dL; PSA,Total - Annual Screen 0.68 ng/mL (0.02-4.00); Sodium Level 140 mmol/L (133-145); Triglycerides 182 mg/dL; Very Low Density Lipoprotein 36 mg/dL (5-40); cholesterol:hdl ratio screen 4.51
[2024-09-27 19:03] LABS: Microalbumin,Random Urine < 12.0 mg/L (NO RANGE EST.); Microalbumin:Creatinine Ratio UNABLE TO CALCULATE mg/g CRE
== END | disposition home or self-care (01) ==
PROVIDERS: PCP Family Medicine; Visit Provider Family Medicine
DX: E11.9 Type 2 diabetes mellitus without complications (principal); Z12.5 Encounter for screening for malignant neoplasm of prostate
CPT/HCPCS: 36415; 80048; 80061; 82043; 82570; 83036; 84153; G0103

== ENCOUNTER 2024-12-12 10:31 | Emergency (ER) | payer OTHER, SELFPAY ==
[2024-12-12 10:32] VITALS: BP 142/85; PULSE 82; RESP 17; TEMP 36.4; O2SAT 100
--- NOTE | 2024-12-12 11:31 | EDS_ITS ---
HPI <DASIA Faye - Last Filed: 12/12/24 15:09> HPI - GI History of Present Illness Chief Complaint: Abd Pain Narrative Narrative: Patient presenting today with epigastric abdominal pain he has had intermittently over the past 2 to 3 weeks. He reports that his pain is worse at night and is somewhat improved when he lays on his left side. He reports that the pain occasionally radiates across his lower abdomen. He has a history of GERD and an upper GI bleed. He denies stool changes, fevers, chills, vomiting, and urinary symptoms. He has no previous history of abdominal surgery. He has a PMH of CHF, HTN, CKD, T2DM, and GERD. PFSH <DASIA Faye - Last Filed: 12/12/24 15:09> [facility] Medical History Chronic pain of toe of left foot Displaced fracture of proximal phalanx of left lesser toe(s), initial encounter for closed fracture Diabetes MIAU (minor aphthous ulceration) Hiatal hernia CKD (chronic kidney disease), stage IV Pulmonary embolism HFrEF (heart failure with reduced ejection fraction) Blood transfusion during current hospitalisation Anticoagulant-induced bleeding GI bleed Benign positional vertigo Home Medications ?Medication ?Instructions ?Recorded ?Last Taken ?Type levothyroxine 75 mcg tablet 75 mcg PO DAILY thyroid Unknown History mecobalamin (vitamin B12) 1,000 1,000 mcg PO DAILY ane erica 06/28/21 Unknown History mcg chewable tablet (B12 Active) metoprolol succinate 100 mg 100 mg PO DAILY heart 04/10 Unknown History tablet,extended release 24 hr vklhnxdolvst-pbc-vvobl acid-vit 1 tab PO DAILY not on pcp med list 06/28/21 Unknown History K-lycop 400 mcg-20 mcg-370 mcg tablet (Men's 50 Plus Multivitamin) tamsulosin 0.4 mg capsule 0.4 mg PO DAILY per md offic e list 06/28/21 Unknown History ferrous sulfate 325 mg (65 mg 325 mg PO DAILY #30 tabs 07/01/21 Unknown Rx iron) tablet pantoprazole 40 mg tablet,delayed 40 mg PO BID #120 ta bs 09/21/21 Unknown Rx release sucralfate 100 mg/mL oral 10 ml PO BID md office #1,00 0 mL 09/21/21 Unknown Rx suspension colestipol 1 gram tablet 0.5 g (1/2 x 1 gram) PO .brad ry 11/19/21 Unknown Rx other day 30 days #30 tabs gabapentin 400 mg capsule 400 mg PO TID per md office list 11/27/23 Unknown History glimepiride 1 mg tablet 1 mg PO DAILY per pcp med [facility] 11/27/23 Unknown History rosuvastatin 20 mg tablet 20 mg PO DAILY per pcp 11/26 Unknown History sacubitril 24 mg-valsartan 26 mg 1 tab PO BID per pcp med list 11/27/23 Unknown History tablet (Entresto) Held on 12/02/23. Instructions: Hold for at least 1 week. GABI on CKD. sertraline 50 mg tablet 50 mg PO DAILY per md office 11/27/23 Unknown History sildenafil 100 mg tablet PO per pcp med list 11/27/23 Unknown History sucralfate 1 gram tablet (Carafate) 1 g PO BID per MD office list 11/27/23 Unknown History acetaminophen 325 mg tablet 650 mg (2 x 325 mg) PO Q6H PRN PRN 12/02/23 Unknown Rx Pain 1-10 Or Fever >100.7 #0 tabs amoxicillin 500 mg-potassium 1 tab PO BIDCM 5 days #10 tabs 12/02/23 Unknown Rx clavulanate 125 mg tablet doxycycline monohydrate 100 mg 100 mg PO BID 5 days #1 0 caps 12/02/23 Unknown Rx capsule insulin lispro 100 unit/mL See Protocol subcut TIDAC # 0 mL 12/02/23 Unknown Rx subcutaneous pen (Humalog KwikPen (U-100) Insulin) miconazole nitrate 2 % topical 1 applic topical BID #0 grams 12/02/23 Unknown Rx cream oxycodone 5 mg tablet 2.5 - 5 mg (0.5 - 1 x 5 mg) PO Q4H 12/02/23 Unknown Rx PRN PRN Pain Score 4-10 3 days #7 tabs spironolactone 25 mg tablet 25 mg PO DAILY not on pcp list 30 12/02/23 Unknown Rx days #0 tabs torsemide 20 mg tablet 20 mg PO BID per md of 30 da ys #0 12/02/23 Unknown Rx tabs amoxicillin 875 mg-potassium 1 tab PO BID 10 days #19 tabs 12/12/24 Unknown Rx clavulanate 125 mg tablet hydrocodone-acetaminophen 5-325mg 1 tab PO Q6H PRN PRN Pain 2 days 12/12/24 Unknown Rx 5mg-325mg #8 TABLETS Allergy/AdvReac Type Severity Reaction Status Date / Time No Known Allergies Allergy Verified 12/12/24 10:32 Family History Other Cancer Hypertension Surgical History History of permanent cardiac pacemaker placement Social History household members: spouse Smoking Status: Never smoker alcohol intake: never substance use type: does not use ROS <DASIA Faye - Last Filed: 12/12/24 15:09> ROS ED Constitutional Constitutional ED: Denies chills or fever(s) Cardiovascular Cardiovascular: Denies chest pain Respiratory/Chest Respiratory/Chest: Denies dyspnea Gastrointestinal Gastrointestinal: Reports abdominal pain and nausea; Denies constipation, diarrhea, hematochezia, melena or vomiting Genitourinary Genitourinary ED: Denies dysuria, hematuria or urinary urgency Musculoskeletal Musculoskeletal: Denies arthralgias or myalgias Integumentary Denies rash Neurologic Neurologic: Denies weakness EXAM <DASIA Faye - Last Filed: 12/12/24 15:09> Physical Exam Const Vital Signs: 12/12/24 10:32 12/12/24 12:31 12/12/24 13:30 Temperature 97.6 F L Temperature Source Temporal Pulse Rate 82 77 Respiratory Rate 17 17 Blood Pressure 142/85 H 139/80 H Blood Pressure Mean 104 99 Pulse Ox 100 97 86 Oxygen Delivery Method Room Air Room Air Room Air 12/12/24 14:00 12/12/24 15:03 Temperature 98 F Temperature Source Pulse Rate 78 71 Respiratory Rate 18 19 H Blood Pressure 138/78 H 138/77 H Blood Pressure Mean 98 97 Pulse Ox 99 95 Oxygen Delivery Method Nasal Cannula Positive well nourished, well developed and no apparent distress General Appearance ED: well developed HEENT Reports normocephalic and head/scalp atraumatic Mouth ED: Yes moist mucous membranes normal Eyes PERRL and EOMs intact bilaterally Neck full ROM and supple Chest Wall inspection of chest normal Resp normal respiratory effort and clear to auscultation bilaterally Cardio regular rate and regular rhythm GI non-distended and no masses GI Narrative: Minimal epigastric tenderness to palpation, no right upper quadrant tenderness, negative McBurney's point tenderness, negative Kaplan sign, no rigidity or guarding Palpation: soft; Negative for pulsatile mass Back/Spine normal ROM and normal to inspection Extremity normal to inspection and full ROM Neuro oriented x3, CN's II-XII intact bilaterally, moves all extremities, no focal motor deficits and no sensory deficits noted Sensorium / Orientation: awake and alert Psych mental status grossly normal and thought process normal Skin no rashes or lesions noted and no wounds <Dr. Harvinder George DO - Last Filed: 12/12/24 15:53> Physical Exam Const Vital Signs: 12/12/24 10:32 12/12/24 12:31 12/12/24 13:30 Temperature 97.6 F L Temperature Source Temporal Pulse Rate 82 77 Respiratory Rate 17 17 Blood Pressure 142/85 H 139/80 H Blood Pressure Mean 104 99 Pulse Ox 100 97 86 Oxygen Delivery Method Room Air Room Air Room Air 12/12/24 14:00 12/12/24 15:03 Temperature 98 F Temperature Source Pulse Rate 78 71 Respiratory Rate 18 19 H Blood Pressure 138/78 H 138/77 H Blood Pressure Mean 98 97 Pulse Ox 99 95 Oxygen Delivery Method Nasal Cannula [facility] <DASIA Faye - Last Filed: 12/12/24 15:09> [employer] Narrative Medical decision making narrative: Patient presenting with epigastric abdominal pain he has had intermittently over the past 2 to 3 weeks. The pain occasionally radiates across his lower abdomen. He has minimal epigastric tenderness on exam. He will be given a GI cocktail and Pepcid and abdominal labs will be obtained. On reexamination he did report improvement of his pain. CT scan of the abdomen pelvis will be obtained. CBC is largely unremarkable. He has CKD, his creatinine is near baseline today. UA negative for UTI, lipase WNL. CT scan of the abdomen and pelvis shows inflammatory changes in the right lower quadrant consistent with diverticulitis. We will start him on a course of Augmentin with first dose here. He will be given a prescription for Ackley for pain. He feels stable going home. Diverticulitis diet discussed. Recommended he have close follow-up with his PCP. He will be discharged home in stable condition. Lab Data Attestation: I reviewed the patient's lab results. Labs: Laboratory Results - last 24 hr 12/12/24 12/12/24 11:30 12:29 WBC 6.3 RBC 4.46 L Hgb 12.9 L Hct 39.7 L MCV 89.0 MCH 28.9 MCHC 32.5 RDW Std Deviation 52.4 H RDW Coeff of Anuradha 16.2 H Plt Count 210 MPV 10.7 Immature Gran % (Auto) 0.500 Neut % (Auto) 72.8 H Lymph % (Auto) 16.7 L [place] % (Auto) 6.3 Eos % (Auto) 2.4 Baso % (Auto) 1.3 H Absolute Neuts (auto) 4.6 Absolute Lymphs (auto) 1.05 Nucleated RBC % 0 Sodium 140 Potassium 3.9 Chloride 104 Carbon Dioxide 19.6 L Anion Gap 17 H BUN 34 H Creatinine 2.39 H Est GFR (MDRD) Non-Af 26 L BUN/Creatinine Ratio 14.4 Glucose 144 H Calcium 9.4 Total Bilirubin 0.83 AST 25 ALT 15 Alkaline Phosphatase 108 Total Protein 7.1 Albumin 4.2 Globulin 2.9 Albumin/Globulin Ratio 1.5 Lipase 36 Urine Color Yellow Urine Clarity Clear Urine pH 6.0 Ur Specific [place] 1.010 Urine Protein 30 H Urine Glucose (UA) Normal Urine Ketones Negative Urine Occult Blood Negative Urine Nitrite Negative Urine Bilirubin Negative Urine Urobilinogen Normal Ur Leukocyte Esterase Negative Urine RBC 0 SEEN Urine WBC 0 SEEN Ur Squamous Epith Cells 0 SEEN Urine Bacteria 0 SEEN Urine Mucus 0 SEEN Radiography Diagnostic Testing: Clinical Impression(s) from Imaging Studies Abdomen/Pelvis CT 12/12/24 12:16 IMPRESSION: OVERALL FINAL ASSESSMENT: . LI-RADS is not meant to be used in patients <18 years or patients with cirrhosis due to congenital hepatic fibrosis or due to vascular disorders, because these patients have a lower chance of developing HCC. Reading Location: [facility] <Dr. Harvinder George, DO - Last Filed: 12/12/24 15:53> [facility] Lab Data Labs: Laboratory Results - last 24 hr 12/12/24 12/12/24 11:30 12:29 WBC 6.3 RBC 4.46 L Hgb 12.9 L Hct 39.7 L MCV 89.0 MCH 28.9 MCHC 32.5 RDW Std Deviation 52.4 H RDW Coeff of Anuradha 16.2 H Plt Count 210 MPV 10.7 Immature Gran % (Auto) 0.500 Neut % (Auto) 72.8 H Lymph % (Auto) 16.7 L [place] % (Auto) 6.3 Eos % (Auto) 2.4 Baso % (Auto) 1.3 H Absolute Neuts (auto) 4.6 Absolute Lymphs (auto) 1.05 Nucleated RBC % 0 Sodium 140 Potassium 3.9 Chloride 104 Carbon Dioxide 19.6 L Anion Gap 17 H BUN 34 H Creatinine 2.39 H Est GFR (MDRD) Non-Af 26 L BUN/Creatinine Ratio 14.4 Glucose 144 H Calcium 9.4 Total Bilirubin 0.83 AST 25 ALT 15 Alkaline Phosphatase 108 Total Protein 7.1 Albumin 4.2 Globulin 2.9 Albumin/Globulin Ratio 1.5 Lipase 36 Urine Color Yellow Urine Clarity Clear Urine pH 6.0 Ur Specific [place] 1.010 Urine Protein 30 H Urine Glucose (UA) Normal Urine Ketones Negative Urine Occult Blood Negative Urine Nitrite Negative Urine Bilirubin Negative Urine Urobilinogen Normal Ur Leukocyte Esterase Negative Urine RBC 0 SEEN Urine WBC 0 SEEN Ur Squamous Epith Cells 0 SEEN Urine Bacteria 0 SEEN Urine Mucus 0 SEEN Radiography Diagnostic Testing: Clinical Impression(s) from Imaging Studies Abdomen/Pelvis CT 12/12/24 12:16 IMPRESSION: OVERALL FINAL ASSESSMENT: . LI-RADS is not meant to be used in patients <18 years or patients with cirrhosis due to congenital hepatic fibrosis or due to vascular disorders, because these patients have a lower chance of developing HCC. Reading [facility] Treatment and Re-Evaluation :: I have personally performed a face to face assessment of the patient and have reviewed the OSCAR Note. I performed a substantive portion of the visit including all aspects of the following. My velazquez findings include: History: Patient with abdominal pain has been constant for the past 2 weeks. Patient states it is mainly over the epigastric area. Patient describes it as aching. Patient states he gets worse throughout the day. Patient states it is worse when he bends forward. Patient admits to some nausea but denies any vomiting. Patient denies any diarrhea, melena, or hematochezia. Patient denies any urinary complaints. Patient denies any fevers or chills. Exam: Vital signs are stable. Patient is afebrile. Patient is in no acute distress. Oral mucosa is pink and moist. Neck is supple. Trachea is midline. There is no JVD. Heart was regular rate and rhythm. Lungs are clear and equal bilaterally. Abdomen is soft bowel sounds are normal. There is epigastric tenderness. There is no rebound or guarding noted. Cranial nerves II through XII are intact. There are no focal motor or sensory deficits. Medical Decision Making: Differential diagnosis includes gastritis, gastroenteritis, pancreatitis, electrolyte abnormality, colitis, urinary tract infection, and pyelonephritis. CBC will be obtained to assess for leukocytosis and anemia. Comprehensive metabolic profile will be obtained to assess for hep atic function, renal function, and electrolyte abnormality. Lipase will be obtained to assess for pancreatitis. Urinalysis will be obtained to assess for urinary tract infection and hematuria. CT scan of the abdomen and pelvis will be obtained to assess for bowel obstruction and perforation. Patient was given IV fluids. Patient was given a dose of Zofran. Patient was given a GI cocktail. Patient was given dose of Pepcid. CBC was reviewed. There is a mild anemia with a hemoglobin of 12.9 and hematocrit 39.7. Comprehensive metabolic profile was reviewed. BUN was 34 and creatinine was 2 .39. These are consistent with previous results. Lipase was reviewed and was normal at 36. Urinalysis was reviewed. There is no evidence of urinary tract infection or hematuria. CT scan of the abdomen and pelvis was obtained. There is no evidence of diverticulitis with redundant sigmoid colon in the right lower quadrant. There is no evidence of any abscess or perforation. Patient was advised of his findings. Patient was given prescription for Augmentin. Patient was instructed to follow-up with his primary care physician in 5 to 7 days. Patient understood and was agreeable with the plan. All questions were answered. Discharge Plan Triage Chief Complaint: Abd Pain ED Midlevel Provider: Rena Franklin ED Provider: Harvinder George Dx/Rx/DC Orders Clinical Impression: Diverticulitis, Hypertension Instructions: ED Diverticulitis Prescriptions: New amoxicillin-pot clavulanate 875-125 mg tablet 1 tab PO BID 10 Days Qty: 19 0RF hydrocodone-acetaminophen 5-325 mg tablet 1 tab PO Q6H PRN PRN (Reason: Pain) 2 Days Qty: 8 0RF No Action sucralfate 100 mg/mL suspension 10 ml PO BID Qty: 1000 0RF pantoprazole 40 mg tablet,delayed release (DR/EC) 40 mg PO BID Qty: 120 3RF colestipol 1 gram tablet 0.5 g PO .every other day 30 Days Qty: 30 1RF metoprolol succinate 100 mg Tablet Extended Release 24 Hr 100 mg PO DAILY levothyroxine 75 mcg Tablet 75 mcg PO DAILY tamsulosin 0.4 mg Capsule 0.4 mg PO DAILY Rx Instructions: source is MD office not daughter in law Men's 50 Plus Multivitamin 400-20-370 mcg Tablet 1 tab PO DAILY mecobalamin (vitamin B12) [B12 Active] 1,000 mcg Tablet,Chewable 1,000 mcg PO DAILY ferrous sulfate 325 mg (65 mg iron) tablet 325 mg PO DAILY Qty: 30 0RF sertraline 50 mg tablet 50 mg PO DAILY gabapentin 400 mg capsule 400 mg PO TID glimepiride 1 mg tablet 1 mg PO DAILY Rx Instructions: source is per pt PCP med list rosuvastatin 20 mg tablet 20 mg PO DAILY Rx Instructions: source is per pcp med list Entresto 24-26 mg tablet 1 tab PO BID Rx Instructions: source is from pcp office sildenafil 100 mg tablet PO Rx Instructions: source is per pcp med list sucralfate [Carafate] 1 gram tablet 1 g PO BID Rx Instructions: per md office list: #60 starting 11/04/23 with no refills. (source is not daughter in law however, it wont let me change the source) doxycycline monohydrate 100 mg Capsule 100 mg PO BID 5 Days Qty: 10 0RF amoxicillin-pot clavulanate 500-125 mg Tablet 1 tab PO BIDCM 5 Days Qty: 10 0RF oxycodone 5 mg Tablet 2.5 - 5 mg PO Q4H PRN PRN (Reason: Pain Score 4-10) 3 Days Qty: 7 0RF miconazole nitrate 2 % Cream 1 applic topical BID Qty: 0 0RF Protocol: *Topical Application Instructions APPLICATION INSTRUCTIONS: left toe web spaces Rx Instructions: In the interdigital webspace in toes insulin lispro [Humalog KwikPen Insulin] 100 unit/mL Insulin Pen See Protocol subcut TIDAC Qty: 0 0RF Protocol: 3. Sliding Scale Insulin Med Dosing Condition: 150-189 mg/dl = 1 unit Condition: 190-229 mg/dl = 2 units Condition: 230-269 mg/dl = 3 units Condition: 270-309 mg/dl = 4 units Condition: 310-349 mg/dl = 5 units Condition: 350-399 mg/dl = 6 units Condition: 400-449 mg/dl = 7 units Condition: Greater than 449 call physician Protocol Text: - Use for Total Daily Dose of Insulin 37-55 units - Obsese, infected, or steroid patients MEDIUM DOSING ALGORITHIM acetaminophen 325 mg Tablet 650 mg PO Q6H PRN PRN (Reason: Pain 1-10 Or Fever >100.7) Qty: 0 0RF torsemide 20 mg tablet 20 mg PO BID 30 Days Qty: 0 0RF Rx Instructions: pt takes 40mg po BID spironolactone 25 mg Tablet 25 mg PO DAILY 30 Days Qty: 0 0RF Primary Care Provider: Joseph Durand Referrals: Joseph Durand MD [Primary Care Provider] - 5-7 Days Activity Restrictions/Additional Instructions: Follow-up with your PCP and return for any other concerns. Print Language: Romanian Disposition Disposition: Home, Self Care Discharge Date/Time: 12/12/24 15:18
[2024-12-12] MEDS: Ondansetron 4 MG/2 ML Vial IV (11:33)
[2024-12-12] MEDS: Famotidine 20 MG Tablet PO (11:34)
[2024-12-12] MEDS: Lidocaine 2% Viscous15 ML UDC 15 ML PO (11:34)
[2024-12-12] MEDS: Mag Hydrox/Al Hydrox/Simeth 30 ML UDC PO (11:34)
[2024-12-12 11:40] LABS: Absolute Lymphocyte Count 1.05 X10^3/uL (0.83-4.51); Absolute Neutrophil Count 4.6 X10^3/uL (2.0-7.7); Basophil# 0.08 X10^3/uL; Basophil% 1.3 % (0-1); Eosinophil# 0.15 X10^3/uL; Eosinophils% 2.4 % (0-5); Hematocrit 39.7 % (40-54); Hemoglobin 12.9 g/dL (13.0-16.5); Lymphocyte # 1.05 X10^3/ul (0.83-4.51); Lymphocyte % 16.7 % (19-41); Mean Corp Hgb Conc 32.5 g/dL (32-36); Mean Corpuscular Hgb 28.9 pg (27.0-32.0); Mean Platelet Vol. 10.7 fl (6.2-12.0); Monocyte% 6.3 % (0-10); NRBC Flagged by Analyzer 0 % (0-5); Neutrophil # 4.59 X10^3/uL (2.7-7.7); Neutrophil % 72.8 % (47-70); Platelet Count 210 K/mm3 (150-450); RBC Distribution Width CV 16.2 % (11.6-14.6); RBC Distribution Width SD 52.4 fl (35.1-43.9); Red Blood Count 4.46 M/mm3 (4.6-6.2); White Blood Count 6.3 K/mm3 (4.4-11.0)
[2024-12-12 12:05] LABS: ALB/GLOB Ratio 1.5 RATIO (0.9-2.4); AST(SGOT) 25 U/L (<=37); Alanine Aminotransfer ALT/SGPT 15 U/L (<=46); Albumin, Serum 4.2 g/dL (3.4-4.8); Alkaline Phosphatase 108 U/L (40-129); Anion Gap 17 (5-15); BUN 34 mg/dL (4-19); BUN/Creat Ratio 14.4 RATIO (10-20); Calcium,Total 9.4 mg/dL (7.6-11.0); Carbon Dioxide 19.6 mmol/L (21.0-32.0); Chloride 104 mmol/L (98-108); Creatinine, Serum 2.39 mg/dL (0.70-1.20); EST Glomerular Filtration Rate 26 (>60); Globulin 2.9 g/dL (2.2-4.2); Glucose 144 mg/dL (70-99); Lipase 36 U/L (13-75); Potassium 3.9 mmol/L (3.3-5.1); Protein, Total 7.1 g/dL (5.9-8.4); Sodium Level 140 mmol/L (133-145); Total Bilirubin 0.83 mg/dL (0.00-1.30)
--- NOTE | 2024-12-12 12:16 | CT_ITS ---
PROCEDURE: ABDOMEN/PELVIS WITHOUT CONT 12/12/2024 REASON FOR EXAM: ABDOMINAL PAIN TECHNIQUE: Abdomen and pelvis CT without intravenous contrast. Noncontrast technique limits evaluation of the abdominal and pelvic viscera. Coronal and Sagittal reconstruction series were provided. One or more dose reduction techniques were used (e.g., Automated exposure control, adjustment of the mA and/or kV according to patient size, use of iterative reconstruction technique). PATIENT PREPARATION: Per protocol ORAL CONTRAST TYPE: None. COMPARISON: None FINDINGS: Lung bases: Moderate right pleural effusion and small left pleural effusion. Lungs are clear. Hiatal hernia is present. Liver: Liver, spleen, pancreas, adrenal glands and right kidney are unremarkable. 2 cysts from the left renal cortex appear simple, Bosniak 1, requiring no follow-up. Gallbladder: Several small gallstones are present. No evidence of inflammatory process involving the gallbladder. Bladder, prostate and seminal vesicles: Unremarkable. Bowel: Possible mural thickening in the cecum. Diverticulosis of the descending and sigmoid colon. Appendix: Trace free fluid adjacent to the cecum. Periappendiceal inflammatory process is not seen, the appendix is not identified Lymph nodes: No lymph nodes that would be considered pathologic by size criteria Vasculature: densely calcified abdominal aorta with normal caliber Peritoneum / Retroperitoneum: Bones: CT/Abdomen/Pelvis without Cont IMPRESSION: OVERALL FINAL ASSESSMENT: . LI-RADS is not meant to be used in patients <18 years or patients with cirrhosi s due to congenital hepatic fibrosis or due to vascular disorders, because these patients have a lower chance of developing HC C. Reading [facility]
--- NOTE | 2024-12-12 12:25 | CM.ED ---
Social Work: Date of referral: 12/12/24 Reason for referral: No ACD's on file Referred by: Social Work identification Patient provided consent to social work visit. Laboratory Veterinarian requested patient to bring a copy of his advanced care directives to the ED next time patient is out and about in the community which patient stated he would do. No additional needs/follow up requested at this time. Sia Kimball, CONTENT ANALYST, SIGNAL PROCESSING ENGINEER
[2024-12-12 12:31] VITALS: BP 139/80; PULSE 77; RESP 17; O2SAT 97
[2024-12-12 12:33] LABS: Bacteria 0 SEEN /hpf (None Seen); Mucous, Urine 0 SEEN /hpf (<or=2+); Red Blood Cells-Urine 0 SEEN /hpf (0-5); Squamous Epithelial Cells - UA 0 SEEN /hpf (0-5); White Blood Cells 0 SEEN /hpf (0-5)
[2024-12-12 12:42] LABS: Color, Urine Yellow (Yellow); Glucose, Dipstick Normal (Normal); Ketone-Dipstick Negative (Negative); Leukocyte Esterase-Dipstick Negative /ul (Negative); Nitrite-Dipstick Negative (Negative); Occult Blood-Urine Negative /ul (Negative); Protein-Dipstick 30 mg/dl (Negative); Urine Bilirubin Dipstick Negative (Negative); Urine Clarity Clear (Clear); Urine Urobilinogen Normal (Normal)
[2024-12-12 13:30] VITALS: O2SAT 86
[2024-12-12 14:00] VITALS: BP 138/78; PULSE 78; RESP 18; O2SAT 99
[2024-12-12 15:03] VITALS: BP 138/77; PULSE 71; RESP 19; TEMP 36.6; O2SAT 95
== END 2024-12-12 15:18 | disposition home or self-care (01) ==
PROVIDERS: Physician Assistant; Emergency Provider Emergency Medicine; PCP Family Medicine; Visit Provider Emergency Medicine
DX: K57.92 Diverticulitis of intestine, part unspecified, without perforation or abscess without bleeding (principal); E11.22 Type 2 diabetes mellitus with diabetic chronic kidney disease; N18.9 Chronic kidney disease, unspecified; K21.9 Gastro-esophageal reflux disease without esophagitis; Z86.711 Personal history of pulmonary embolism; Z95.0 Presence of cardiac pacemaker; I12.9 Hypertensive chronic kidney disease with stage 1 through stage 4 chronic kidney disease, or unspecified chronic kidney disease
CPT/HCPCS: 74176; 80053; 81001; 83690; 85025; 96374; 99283; A4216; J2405

== ENCOUNTER 2025-04-01 12:30 | Emergency (ER) | payer OTHER, SELFPAY ==
[2025-04-01 12:34] VITALS: BP 135/80; PULSE 60; RESP 16; TEMP 36.4; O2SAT 99; BMI 30.7
--- NOTE | 2025-04-01 12:44 | EKG12_ITS ---
Test Reason : Blood Pressure : */* mmHG Vent. Rate : 70 BPM Atrial Rate : 70 BPM P-R Int : * ms QRS Dur : 116 ms QT Int : 494 ms P-R-T Axes : 88 161 63 degrees QTcB Int : 533 ms Ventricular-paced rhythm Biventricular pacemaker detected Abnormal ECG Confirmed by Fausto White ([id number]), art editor HALLE VILLEGAS ([id number]) on 04/04/2025 1:09:22 PM Referred By: LUCILLE Confirmed By: Fausto White
--- NOTE | 2025-04-01 12:45 | CT_ITS ---
PROCEDURE: CT CHEST, ABD, PEL W/CONTRAST 04/01/2025 REASON FOR EXAM: FALL, LEFT RIB PAIN, TECHNIQUE: Chest, abdomen and pelvis CT with intravenous contrast. Coronal and Sagittal reconstruction series were provided. One or more dose reduction techniques were used (e.g., Automated exposure control, adjustment of the mA and/or kV according to patient size, use of iterative reconstruction technique. PATIENT PREPARATION: Per protocol ORAL CONTRAST TYPE: None. CONTRAST: Isovue-300 VOLUME: 100mL Gauge IV RADIATION DOSE SUMMARY: CTDlvol: 16.4 mGy DLP: 2046.56 mGycm COMPARISON: Prior study dated November 27, 2023. FINDINGS: CT CHEST: Hardware: Left-sided pacemaker is seen. Lymph nodes: No enlarged lymph nodes are seen. Heart and Vasculature: Coronary artery calcification. Cardiomegaly. A dual- chamber pacemaker is seen. Lungs and Airways: Bilateral pleural effusions right greater than left with bibasilar compressive atelectasis. Mild increased markings in the posterior aspect of the right upper lobe abutting the right minor fissure suggestive of atelectasis and/or scarring. Bones: Degenerative changes of the thoracic spine. Hiatal hernia. CT ABDOMEN/PELVIS: Liver: Diffuse fatty infiltration.. Small amount of perihepatic fluid. Fluid is also seen in the right paracolic gutter in keeping with ascites. Small amount of fluid in the pelvis. Gallbladder: Unremarkable Spleen: Normal size. Pancreas: Diffuse fatty atrophy. Adrenals: Unremarkable Kidneys: Bilateral renal atrophy. Stable bilateral renal cysts more prominent on the left side. No evidence of hydronephrosis. Bladder: Unremarkable Small hiatal hernia. Bowel: Colonic diverticulosis without diverticulitis. Appendix: The appendix is not identified. There is no inflammatory process identified in the right lower quadrant to suggest appendicitis. Lymph nodes: Unremarkable. Vasculature: Mild diffuse atherosclerotic calcifications are noted. Increased markings in the anterior abdominal wall subcutaneous tissue. Bones: Degenerative changes of the spine. CT/CT Chest, Abd, Pel w/Contrast IMPRESSION: Bilateral pleural effusions right greater than left with bibasilar atelectasis. Ascites. Stable bilateral renal cysts more prominent on the left side. Fatty infiltration of the liver. Sigmoid diverticulosis. Reading Location: [id number]
--- NOTE | 2025-04-01 12:45 | CT_ITS ---
PROCEDURE: SPINE CERVICAL WITHOUT CONTRAS 04/01/2025 REASON FOR EXAM: TRAUMA TECHNIQUE: Procedure Code: CTSPC Modality: CT Procedure: SPINE CERVICAL WITHOUT CONTRAS Coronal and Sagittal reconstruction series were provided. One or more dose reduction techniques were used (e.g., Automated exposure control, adjustment of the mA and/or kV according to patient size, use of iterative reconstruction technique. RADIATION DOSE SUMMARY: CTDlvol: 23.38 mGy DLP: 509.35 mGycm COMPARISON: None FINDINGS: Alignment: Straightening of the normal cervical lordosis. Vertebrae: Multilevel spondylosis. Soft Tissues: No prevertebral soft tissue swelling. Other: C1-2: Degenerative changes at the atlantoaxial joint. C2-3: Mild degree of disc space narrowing. Facet joint osteoarthritis and hypertrophy worse on the right side. No significant stenosis seen. Minimal anterior listhesis of C2 on C3 most likely secondary to the facet joint osteoarthritis. C3-4: Marked degree of disc space narrowing. Spondylosis. Subchondral sclerosis. Moderate degree of bilateral neural foraminal and central canal stenosis. C4-5: Marked degree of disc space narrowing. Spondylosis. Uncovertebral arthrosis. Mild bilateral neural foraminal stenosis. C5-6: Marked degree of disc space narrowing. Spondylosis. Uncovertebral arthrosis. Mild degree of bilateral neural foraminal stenosis. C6-7: Marked degree of disc space narrowing. Facet joint osteoarthritis and hypertrophy. Mild bilateral neural foraminal stenosis. C7-T1: Mild degree of disc space narrowing. Facet joint osteoarthritis. CT/Spine Cervical without Contras IMPRESSION: Multilevel disc space narrowing and degeneration with the multilevel neural for aminal stenosis and facet joint osteoarthritis. Reading Location: [id number]
--- NOTE | 2025-04-01 12:45 | CT_ITS ---
PROCEDURE: BRAIN/HEAD WITHOUT CONTRAST 04/01/2025 REASON FOR EXAM: TRAUMA Laceration to the right side of the skull. TECHNIQUE: Procedure Code: CTBR Modality: CT Procedure: BRAIN/HEAD WITHOUT CONTRAST Coronal and Sagittal reconstruction series were provided. One or more dose reduction techniques were used (e.g., Automated exposure control, adjustment of the mA and/or kV according to patient size, use of iterative reconstruction technique. RADIATION DOSE SUMMARY: CTDlvol: 44.99 mGy DLP: 829.85 mGycm COMPARISON: Prior study dated June 28, 2021. FINDINGS: Brain: Low density in the periventricular white matter suggests mild chronic small vessel ischemic changes. CSF Spaces: Mild generalized cerebral atrophy Sinuses/Mastoids: Partial opacification at the base of the right maxillary sinus. Bones: No fracture is seen. CT/Brain/Head without Contrast IMPRESSION: CHRONIC CHANGES. NO ACUTE FINDINGS. Reading Location: [id number]
--- NOTE | 2025-04-01 12:46 | EDS_ITS ---
HPI History of Present Illness Chief Complaint: Fall Narrative Narrative: Patient is a 84-year-old male with past medical history of chronic kidney disease, heart failure with reduced ejection fraction, BPV, diabetes, PE who presents to the emergency department chief complaint of fall and left rib pain. According to the patient he was taking his morning medication and he dropped one of the pills and bent over to pick this up he states that he lost balance during this episode causing him to fall and hit a bookshelf. He states he did not pass out. He denies any blood thinning medications. 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 He states that over the last month he has had approximately 4 falls and states that ever since he had been diagnosed with diverticulitis. He does live alone. [facility] Medical History Chronic pain of toe of left foot Displaced fracture of proximal phalanx of left lesser toe(s), initial encounter for closed fracture Diabetes MIAU (minor aphthous ulceration) Hiatal hernia CKD (chronic kidney disease), stage IV Pulmonary embolism HFrEF (heart failure with reduced ejection fraction) Blood transfusion during current hospitalisation Anticoagulant-induced bleeding GI bleed Benign positional vertigo Home Medications ?Medication ?Instructions ?Recorded ?Last Taken ?Type levothyroxine 75 mcg tablet 75 mcg PO DAILY thyroid Unknown History mecobalamin (vitamin B12) 1,000 1,000 mcg PO DAILY ane erica 06/28/21 Unknown History mcg chewable tablet (B12 Active) metoprolol succinate 100 mg 100 mg PO DAILY heart 04/10 Unknown History tablet,extended release 24 hr [id number] acid-vit 1 tab PO DAILY not on pcp med list 06/28/21 Unknown History K-lycop 400 mcg-20 mcg-370 mcg tablet (Men's 50 Plus Multivitamin) tamsulosin 0.4 mg capsule 0.4 mg PO DAILY per md offic e list 06/28/21 Unknown History ferrous sulfate 325 mg (65 mg 325 mg PO DAILY #30 tabs 07/01/21 Unknown Rx iron) tablet pantoprazole 40 mg tablet,delayed 40 mg PO BID #120 ta bs 09/21/21 Unknown Rx release sucralfate 100 mg/mL oral 10 ml PO BID md office #1,00 0 mL 09/21/21 Unknown Rx suspension colestipol 1 gram tablet 0.5 g (1/2 x 1 gram) PO .brad ry 11/19/21 Unknown Rx other day 30 days #30 tabs gabapentin 400 mg capsule 400 mg PO TID per md office list 11/27/23 Unknown History glimepiride 1 mg tablet 1 mg PO DAILY per pcp med st 11/27/23 Unknown History rosuvastatin 20 mg tablet 20 mg PO DAILY per pcp 11/26 Unknown History sacubitril 24 mg-valsartan 26 mg 1 tab PO BID per pcp med list 11/27/23 Unknown History tablet (Entresto) Held on 12/02/23. Instructions: Hold for at least 1 week. GABI on CKD. sertraline 50 mg tablet 50 mg PO DAILY per md office 11/27/23 Unknown History sildenafil 100 mg tablet PO per pcp med list 11/27/23 Unknown History sucralfate 1 gram tablet (Carafate) 1 g PO BID per MD office list 11/27/23 Unknown History acetaminophen 325 mg tablet 650 mg (2 x 325 mg) PO Q6H PRN PRN 12/02/23 Unknown Rx Pain 1-10 Or Fever >100.7 #0 tabs amoxicillin 500 mg-potassium 1 tab PO BIDCM 5 days #10 tabs 12/02/23 Unknown Rx clavulanate 125 mg tablet doxycycline monohydrate 100 mg 100 mg PO BID 5 days #1 0 caps 12/02/23 Unknown Rx capsule insulin lispro 100 unit/mL See Protocol subcut TIDAC # 0 mL 12/02/23 Unknown Rx subcutaneous pen (Humalog KwikPen (U-100) Insulin) miconazole nitrate 2 % topical 1 applic topical BID #0 grams 12/02/23 Unknown Rx cream oxycodone 5 mg tablet 2.5 - 5 mg (0.5 - 1 x 5 mg) PO Q4H 12/02/23 Unknown Rx PRN PRN Pain Score 4-10 3 days #7 tabs spironolactone 25 mg tablet 25 mg PO DAILY not on pcp list 30 12/02/23 Unknown Rx days #0 tabs torsemide 20 mg tablet 20 mg PO BID per md of 30 da ys #0 12/02/23 Unknown Rx tabs amoxicillin 875 mg-potassium 1 tab PO BID 10 days #19 tabs 12/12/24 Unknown Rx clavulanate 125 mg tablet hydrocodone-acetaminophen 5-325mg 1 tab PO Q6H PRN PRN Pain 2 days 12/12/24 Unknown Rx 5mg-325mg #8 TABLETS Allergy/AdvReac Type Severity Reaction Status Date / Time No Known Allergies Allergy Verified 04/01/25 12:40 Family History Other Cancer Hypertension Surgical History History of permanent cardiac pacemaker placement Social History household members: spouse Smoking Status: Never smoker alcohol intake: never substance use type: does not use ROS ROS ED ROS Narrative Constitutional: Denies headache, lightness, denies confusion, chills Eyes: Denies double vision Cardiovascular: Denies chest pain Respiratory: Denies coughing wheezing shortness of breath Abdomen: Denies abdominal pain nausea vomit diarrhea : Denies urinary symptoms Neurological: Denies any numbness, weakness, tingling Musculoskeletal: Complains of left rib pain as noted above Skin: Complains to cut to the back of the head EXAM Physical Exam Narrative Exam Narrative: General: Patient was lying in bed rest comfortably did not appear to be in acute distress Head: Patient has a small approximately 1 cm laceration to the back of the right head, normocephalic Eyes: PERRL bilaterally, EOMI bilaterally, no conjunctival injection noted, no nasal septal hematomas noted bilaterally, no raccoon eyes no Cooney sign Neck: Soft, supple, trachea midline, no tenderness palpation midline of the cervical spine Cardiovascular: Regular rate and rhythm no murmurs gallops rubs noted Respiratory: Clear to auscultation bilaterally Abdomen: Soft, nondistended, no tenderness palpation Musculoskeletal: Patient has pain with palpation over the left lateral rib cage all the bony prominences palpated joints taken through full range of motion no pain elicited Extremities: Radial pulses +2/4 in the bilateral extremities, +4/5 strength noted in the bilateral upper and lower extremities Neurological: Patient following commands and that he was at [facility] the year is 2024 Skin: Warm, dry, see head Const Vital Signs: 04/01/25 12:34 04/01/25 13:07 04/01/25 14:31 Temperature 97.5 F L Temperature Source Oral Pulse Rate 60 62 Respiratory Rate 16 27 H Respiratory Effort Normal Non-Labored Respiratory Depth Normal Respiratory Pattern Normal Blood Pressure 135/80 H 138/76 H Blood Pressure Mean 98 96 Pulse Ox 99 98 97 Oxygen Delivery Method Room Air Room Air Room Air MDM MDM MDM Narrative Medical decision making narrative: Patient is a 84-year-old male who presents to the emergency department chief complaint of mechanical fall with a laceration to his head. He also is complaining of left rib pain. On the differential diagnose includes but not limited to rib fracture, pneumothorax, head laceration. Once workup is obtained reviewed he will be reevaluated. Patient states that his tetanus shot is up-to-date within the last 5 years. Patient CBC reviewed which showed no evidence leukocytosis white blood, 5.1, hemoglobin was 16.3, plate count was 203. Patient INR normal 0.6, PT of 19.3. P sodium normal 139, potassium of 3.9, creatinine was 2.19 he has underlying chronic kidney disease and this does appear to be around his baseline. Patient direct bilirubin was 1.42, total bilirubin 2.82, AST of 40.Patient CT head brain without contrast showed chronic changes no acute findings noted. Patient CT cervical spine showed multilevel disc space narrowing degeneration with multile jaswant neuroforaminal stenosis and facet joint osteoarthritis. Patient CT chest abdomen pelvis with IV contrast reviewed and showed bilateral pleural effusions right greater than the left with basilar atelectasis. Ascites noted. Stable bilateral renal cyst more prominent in the left side fatty infiltration of the liver, sigmoid diverticulosis. Patient ambulated here in the emergency department tolerated this well no hypoxia no tachycardia and felt at his baseline and would like to go home. His laceration was stapled see procedure note for separate details. He is advised to have his kota removed in approximately 5 days. He was given a hard copy of the CT result and was advised to take this to his doctor. He was encouraged to return with worsening symptoms or concerns. He is agreeable this plan all course concerns answered is discharged home in stable condition. Procedure note Procedure name: Laceration repair Indication: Reduce risk of infection Location: Head laceration 1 cm no active bleeding simple Preprocedure diagnosis: Laceration Postprocedure diagnosis: Repaired laceration Informed consent was obtained prior to procedure started. Procedure: The appropriate timeout was taken. The area was prepped and draped in usual sterile fashion. Local anesthesia was achieved using 3 cc of lidocaine 1% without epinephrine. Wound was copiously irrigated. 3 kota were placed. Estimated blood loss was less than 0.5 mL. Dressing was applied to the area and anticipatory guidance, as well as standard postprocedure care was explained. Return precautions are given. Patient tolerated procedure well without any complications. Follow-up visit for suture removal and evaluation of laceration. Lab Data Labs: Laboratory Results - last 24 hr 04/01/25 04/01/25 13:04 13:30 WBC 5.1 RBC 5.61 Hgb 16.3 Hct 49.1 MCV 87.5 MCH 29.1 MCHC 33.2 RDW Std Deviation 61.8 H RDW Coeff of Anuradha 20.3 H Plt Count 203 MPV 10.8 Immature Gran % (Auto) 0.800 Neut % (Auto) 66.1 Lymph % (Auto) 18.1 L [place] % (Auto) 10.6 H Eos % (Auto) 2.4 Baso % (Auto) 2.0 H Absolute Neuts (auto) 3.4 Absolute Lymphs (auto) 0.92 Nucleated RBC % 0 Platelet Estimate ADEQUATE Anisocytosis 1+ PT Cancelled 19.3 H INR Cancelled 1.6 APTT Cancelled 47.0 H Sodium 139 Potassium 3.9 Chloride 100 Carbon Dioxide 19.7 L Anion Gap 19 H BUN 38 H Creatinine 2.19 H Estim Creat Clear Calc 26.27 L Est GFR (MDRD) Non-Af 29 L BUN/Creatinine Ratio 17.4 Glucose 91 Calcium 9.2 Total Bilirubin 2.82 H Direct Bilirubin 1.42 H AST 40 H ALT 12 Alkaline Phosphatase 129 Total Protein 6.9 Albumin 3.8 Globulin 3.0 Radiography Diagnostic Testing: Clinical Impression(s) from Imaging Studies Brain CT 04/01/25 12:45 IMPRESSION: CHRONIC CHANGES. NO ACUTE FINDINGS. Reading Location: [id number] Cervical Spine CT 04/01/25 12:45 IMPRESSION: Multilevel disc space narrowing and degeneration with the multilevel neural foraminal stenosis and facet joint osteoarthritis. Reading Location: [id number] Chest/Abdomen/Pelvis CT 04/01/25 12:45 IMPRESSION: Bilateral pleural effusions right greater than left with bibasilar atelectasis. Ascites. Stable bilateral renal cysts more prominent on the left side. Fatty infiltration of the liver. Sigmoid diverticulosis. Reading Location: [id number] Discharge Plan Triage Chief Complaint: Fall ED Provider: Dax Romero Dx/Rx/DC Orders Clinical Impression: Congestive heart failure, Chronic kidney disease, Closed head injury without loss of consciousness, Laceration of head, Fall Prescriptions: No Action sucralfate 100 mg/mL suspension 10 ml PO BID Qty: 1000 0RF pantoprazole 40 mg tablet,delayed release (DR/EC) 40 mg PO BID Qty: 120 3RF colestipol 1 gram tablet 0.5 g PO .every other day 30 Days Qty: 30 1RF metoprolol succinate 100 mg Tablet Extended Release 24 Hr 100 mg PO DAILY levothyroxine 75 mcg Tablet 75 mcg PO DAILY tamsulosin 0.4 mg Capsule 0.4 mg PO DAILY Rx Instructions: source is MD office not daughter in law Men's 50 Plus Multivitamin 400-20-370 mcg Tablet 1 tab PO DAILY mecobalamin (vitamin B12) [B12 Active] 1,000 mcg Tablet,Chewable 1,000 mcg PO DAILY ferrous sulfate 325 mg (65 mg iron) tablet 325 mg PO DAILY Qty: 30 0RF amoxicillin-pot clavulanate 875-125 mg tablet 1 tab PO BID 10 Days Qty: 19 0RF hydrocodone-acetaminophen 5-325 mg tablet 1 tab PO Q6H PRN PRN (Reason: Pain) 2 Days Qty: 8 0RF sertraline 50 mg tablet 50 mg PO DAILY gabapentin 400 mg capsule 400 mg PO TID glimepiride 1 mg tablet 1 mg PO DAILY Rx Instructions: source is per pt PCP med list rosuvastatin 20 mg tablet 20 mg PO DAILY Rx Instructions: source is per pcp med list Entresto 24-26 mg tablet 1 tab PO BID Rx Instructions: source is from pcp office sildenafil 100 mg tablet PO Rx Instructions: source is per pcp med list sucralfate [Carafate] 1 gram tablet 1 g PO BID Rx Instructions: per md office list: #60 starting 11/04/23 with no refills. (source is not daughter in law however, it wont let me change the source) doxycycline monohydrate 100 mg Capsule 100 mg PO BID 5 Days Qty: 10 0RF amoxicillin-pot clavulanate 500-125 mg Tablet 1 tab PO BIDCM 5 Days Qty: 10 0RF oxycodone 5 mg Tablet 2.5 - 5 mg PO Q4H PRN PRN (Reason: Pain Score 4-10) 3 Days Qty: 7 0RF miconazole nitrate 2 % Cream 1 applic topical BID Qty: 0 0RF Protocol: *Topical Application Instructions APPLICATION INSTRUCTIONS: left toe web spaces Rx Instructions: In the interdigital webspace in toes insulin lispro [Humalog KwikPen Insulin] 100 unit/mL Insulin Pen See Protocol subcut TIDAC Qty: 0 0RF Protocol: 3. Sliding Scale Insulin Med Dosing Condition: 150-189 mg/dl = 1 unit Condition: 190-229 mg/dl = 2 units Condition: 230-269 mg/dl = 3 units Condition: 270-309 mg/dl = 4 units Condition: 310-349 mg/dl = 5 units Condition: 350-399 mg/dl = 6 units Condition: 400-449 mg/dl = 7 units Condition: Greater than 449 call physician Protocol Text: - Use for Total Daily Dose of Insulin 37-55 units - Obsese, infected, or steroid patients MEDIUM DOSING ALGORITHIM acetaminophen 325 mg Tablet 650 mg PO Q6H PRN PRN (Reason: Pain 1-10 Or Fever >100.7) Qty: 0 0RF torsemide 20 mg tablet 20 mg PO BID 30 Days Qty: 0 0RF Rx Instructions: pt takes 40mg po BID spironolactone 25 mg Tablet 25 mg PO DAILY 30 Days Qty: 0 0RF Primary Care Provider: Joseph Durand Referrals: Joseph Durand MD [Primary Care Provider] - Activity Restrictions/Additional Instructions: Follow-up with your doctors in outpatient setting. Return with worsening symptoms or any other concerns. Have your kota removed in approximately 5 days by your primary care physician. Showed them the CT results that were printed off for your records. Print Language: Omani Disposition Disposition: Home, Self Care
[2025-04-01] MEDS: 0.9% Normal Saline (1000mL) 1,000 ML 999 ML IV (13:06)
[2025-04-01 13:07] VITALS: O2SAT 98
[2025-04-01 13:15] LABS: Hematocrit 49.1 % (40-54); Hemoglobin 16.3 g/dL (13.0-16.5); Immature Granulocytes Count 0.040 X10^3/uL (0.0-0.0); Mean Corp Hgb Conc 33.2 g/dL (32-36); Mean Corpuscular Volume 87.5 fL (80-94); Mean Platelet Vol. 10.8 fl (6.2-12.0); NRBC Flagged by Analyzer 0 % (0-5); POSITIVE MORPHOLOGY YES; Platelet Count 203 K/mm3 (150-450); RBC Distribution Width CV 20.3 % (11.6-14.6); RBC Distribution Width SD 61.8 fl (35.1-43.9); Red Blood Count 5.61 M/mm3 (4.6-6.2); White Blood Count 5.1 K/mm3 (4.4-11.0)
[2025-04-01 13:18] LABS: Differential Indicated SCAN CRITERIA MET
[2025-04-01 13:52] LABS: AST(SGOT) 40 U/L (<=37); Alanine Aminotransfer ALT/SGPT 12 U/L (<=46); Albumin, Serum 3.8 g/dL (3.4-4.8); Alkaline Phosphatase 129 U/L (40-129); Anion Gap 19 (5-15); BUN 38 mg/dL (4-19); BUN/Creat Ratio 17.4 RATIO (10-20); Bilirubin, Direct 1.42 mg/dL (0.00-0.30); Calcium,Total 9.2 mg/dL (7.6-11.0); Carbon Dioxide 19.7 mmol/L (21.0-32.0); Chloride 100 mmol/L (98-108); Estimated Creatinine Clearance 26.27 ml/min (50-250); Globulin 3.0 g/dL (2.2-4.2); Glucose 91 mg/dL (70-99); Potassium 3.9 mmol/L (3.3-5.1)
[2025-04-01 13:54] LABS: Prothrombin Time (Protime)PT. 19.3 SECONDS (11.7-14.9)
[2025-04-01 13:55] LABS: Partial Thromboplast Time 47.0 Seconds (24.1-36.2)
[2025-04-01 13:58] LABS: Anisocytosis 1+
[2025-04-01 14:31] VITALS: BP 138/76; PULSE 62; RESP 27; O2SAT 97
[2025-04-01] MEDS: Lidocaine 1% (20 ml mdv) 20 ML Vial 10 ML INFILT (15:31)
[2025-04-01 15:32] VITALS: O2SAT 100
[2025-04-01 15:53] VITALS: BP 128/81; PULSE 63; RESP 21; TEMP 36.4; O2SAT 100
[2025-04-01 16:00] VITALS: BP 128/81; PULSE 60; O2SAT 95
--- NOTE | 2025-04-01 16:50 | CM.ED ---
Social work Reason for referral: resources Referral source: ED [place], Meseret Lonnie Carl, patient's daughter, Lisa, called in asking to speak with someone about SNF for patient. This SW called Lisa (ph: [phone]) and Lisa stated being in [place] on vacation with patient's other daughter, Shaylee. Lisa stated belief that patient's son, Samuel, would be helping care for patient while patient's daughters were out of state, but Samuel is reportedly also out of state currently. Lisa stated patient has fallen 4 times this week and Lisa stated the concern that this brings for patient's family members who are out of state. Lisa asked SW if there was anywhere that patient could go until patient's daughters get home on Friday. By the time of this SW call, patient's discharge orders were in, patient had reportedly ambulated well around the ED, patient's O2 was reportedly fine, and patient reportedly asked to discharge home. This information was passed on to Lisa who stated patient returning home was totally fine and Lisa stated patient's ex- would likely be able to help keep an eye on patient until Friday. Lisa expressed intent to reach out to patient's PCP Dr Brandt next week to see what suggestions Rikki had. No other needs identified by Lisa at this time. Darlene Coker, PRODUCT ENGINEERING MANAGER, THERAPEUTIC ACTIVITIES SERVICES WORKER
== END 2025-04-01 17:02 | disposition home or self-care (01) ==
PROVIDERS: Emergency Provider Emergency Medicine; PCP Family Medicine; Visit Provider Emergency Medicine
DX: S01.91XA Laceration without foreign body of unspecified part of head, initial encounter (principal); N18.4 Chronic kidney disease, stage 4 (severe); I50.22 Chronic systolic (congestive) heart failure; E11.22 Type 2 diabetes mellitus with diabetic chronic kidney disease; K57.30 Diverticulosis of large intestine without perforation or abscess without bleeding; K76.0 Fatty (change of) liver, not elsewhere classified; J90 Pleural effusion, not elsewhere classified; R07.81 Pleurodynia; J98.11 Atelectasis; R18.8 Other ascites; W19.XXXA Unspecified fall, initial encounter; Z95.0 Presence of cardiac pacemaker; S09.90XA Unspecified injury of head, initial encounter; Z87.19 Personal history of other diseases of the digestive system; R29.6 Repeated falls
CPT/HCPCS: 12011; 70450; 71260; 72125; 74177; 80048; 80076; 85025; 85610; 85730; 93005; 96360; 99285; Q9967; A4216

== ENCOUNTER 2025-04-04 23:51 | Inpatient (IN) | payer OTHER, SELFPAY ==
[2025-04-04 23:54] VITALS: BP 114/67; PULSE 62; RESP 18; TEMP 36.6; O2SAT 95; BMI 29.7
[2025-04-05] VITALS (10 sets, daily range): BP systolic 104–121; BP diastolic 66–74; PULSE 59–72; RESP 16–19; TEMP 36.4–36.9; O2SAT 92–100; BMI 28.8
--- NOTE | 2025-04-05 00:18 | EX.ED.DYSGE1 ---
HPI History of Present Illness Chief Complaint: Fall Informant: patient, family and EMS Narrative Narrative: Patient is an 84-year-old male with past medical history of congestive heart failure insulin-dependent type 2 diabetes hypothyroidism and hypertension. He lives at home alone. He states that today he fell like he had to use the restroom and therefore he went and sat on the toilet. He states he was there between 2 and 6 PM. He states he finally decided that he should get up and therefore he grabbed his rollator and stood up but then felt extremely weak once again and reportedly slid down onto the floor/shower. He states he did not strike his head or have loss of consciousness. He states he laid there until he was found and EMS was able to help him up and this was approximately another 5 hours or so. He denies any pain at this time but secondary to his persistent weakness inability to care for himself and concern for rhabdomyolysis based on his prolonged downtime he was brought in for evaluation [facility] Medical History Chronic pain of toe of left foot Displaced fracture of proximal phalanx of left lesser toe(s), initial encounter for closed fracture Diabetes MIAU (minor aphthous ulceration) Hiatal hernia CKD (chronic kidney disease), stage IV Pulmonary embolism HFrEF (heart failure with reduced ejection fraction) Blood transfusion during current hospitalisation Anticoagulant-induced bleeding GI bleed Benign positional vertigo Home Medications ?Medication ?Instructions ?Recorded ?Last Taken ?Type levothyroxine 75 mcg tablet 75 mcg PO DAILY thyroid 06/28/21 Unknown History mecobalamin (vitamin B12) 1,000 1,000 mcg PO DAILY anemia 06/28/21 Unknown History mcg chewable tablet (B12 Active) metoprolol succinate 100 mg 100 mg PO DAILY heart 06/28/21 Unknown History tablet,extended release 24 hr rqvopsfvhyfb-juq-kcesw acid-vit 1 tab PO DAILY not on pcp med list 06/28/21 Unknown History K-lycop 400 mcg-20 mcg-370 mcg tablet (Men's 50 Plus Multivitamin) tamsulosin 0.4 mg capsule 0.4 mg PO DAILY per md office list 06/28/21 Unknown History ferrous sulfate 325 mg (65 mg 325 mg PO DAILY #30 tabs 07/01/21 Unknown Rx iron) tablet pantoprazole 40 mg tablet,delayed 40 mg PO BID #120 tabs 09/21/21 Unknown Rx release sucralfate 100 mg/mL oral 10 ml PO BID md office #1,000 mL 09/21/21 Unknown Rx suspension colestipol 1 gram tablet 0.5 g (1/2 x 1 gram) PO .every 11/19/21 Unknown Rx other day 30 days #30 tabs gabapentin 400 mg capsule 400 mg PO TID per md office list 11/27/23 Unknown History glimepiride 1 mg tablet 1 mg PO DAILY per pcp med list 11/27/23 Unknown History rosuvastatin 20 mg tablet 20 mg PO DAILY per pcp 11/27/23 Unknown History sacubitril 24 mg-valsartan 26 mg 1 tab PO BID per pcp med list 11/27/23 Unknown History tablet (Entresto) Held on 12/02/23. Instructions: Hold for at least 1 week. GABI on CKD. sertraline 50 mg tablet 50 mg PO DAILY per md office 11/27/23 Unknown History sildenafil 100 mg tablet PO per pcp med list 11/27/23 Unknown History sucralfate 1 gram tablet (Carafate) 1 g PO BID per MD office list 11/27/23 Unknown History acetaminophen 325 mg tablet 650 mg (2 x 325 mg) PO Q6H PRN PRN 12/02/23 Unknown Rx Pain 1-10 Or Fever >100.7 #0 tabs doxycycline monohydrate 100 mg 100 mg PO BID 5 days #10 caps 12/02/23 Unknown Rx capsule insulin lispro 100 unit/mL See Protocol subcut TIDAC #0 mL 12/02/23 Unknown Rx subcutaneous pen (Humalog KwikPen (U-100) Insulin) miconazole nitrate 2 % topical 1 applic topical BID #0 grams 12/02/23 Unknown Rx cream oxycodone 5 mg tablet 2.5 - 5 mg (0.5 - 1 x 5 mg) PO Q4H 12/02/23 Unknown Rx PRN PRN Pain Score 4-10 3 days #7 tabs spironolactone 25 mg tablet 25 mg PO DAILY not on pcp list 30 12/02/23 Unknown Rx days #0 tabs torsemide 20 mg tablet 20 mg PO BID per md of 30 days #0 12/02/23 Unknown Rx tabs doxycycline hyclate 100 mg tablet 100 mg PO BID 04/05/25 Unknown History Allergy/AdvReac Type Severity Reaction Status Date / Time No Known Allergies Allergy Verified 04/05/25 00:00 Family History Other Cancer Hypertension Surgical History History of permanent cardiac pacemaker placement Social History household members: spouse Smoking Status: Never smoker alcohol intake: never substance use type: does not use ROS ROS ED Constitutional Constitutional ED: Denies chills or fever(s) Eyes Eyes: Denies blurry vision or change in vision ENT ENT ED: Denies sore throat Cardiovascular Cardiovascular: Reports other Details: Negative syncope ; Denies chest pain, palpitations or racing heartbeat Respiratory/Chest Respiratory/Chest: Denies cough or dyspnea Gastrointestinal Gastrointestinal: Denies abdominal pain, diarrhea, nausea or vomiting Genitourinary Genitourinary ED: Denies dysuria Musculoskeletal Musculoskeletal: Reports other Details: Positive leg swelling which is chronic in nature per patient ; Denies arthralgias, back pain or neck pain Integumentary Denies rash Neurologic Neurologic: Reports weakness; Denies headache(s) Hematologic/Lymphatic Hematologic/Lymphatic: Denies easy bleeding or easy bruising EXAM Physical Exam Const Vital Signs: 04/04/25 23:54 04/05/25 00:04 04/05/25 00:04 Temperature 97.9 F Temperature Source Oral Pulse Rate 62 61 Respiratory Rate 18 18 Respiratory Effort Normal Non-Labored Respiratory Depth Normal Respiratory Pattern Normal Blood Pressure 114/67 104/72 Blood Pressure Mean 82 82 Pulse Ox 95 92 Oxygen Delivery Method Room Air Room Air Room Air 04/05/25 01:49 Temperature 97.9 F Temperature Source Pulse Rate 62 Respiratory Rate 19 H Respiratory Effort Respiratory Depth Respiratory Pattern Blood Pressure 113/71 Blood Pressure Mean 85 Pulse Ox 97 Oxygen Delivery Method Positive well nourished and well developed General Appearance ED: well developed HEENT Reports dry mucous membranes HEENT Narrative: No signs of depressed or basilar skull fracture Mouth ED: Yes dry mucous membranes Mouth: dry mucous membranes Eyes PERRL and EOMs intact bilaterally General Eye ED: Negative for scleral icterus Neck supple Neck Narrative: No bony deformity or step-off of the cervical spine; no midline tenderness to palpation Mild JVD noted on the right Chest Wall palpation of chest normal Chest Narrative: No bony deformity or subcutaneous emphysema; no pain with palpation Resp normal respiratory effort Resp Narrative: Breath sounds are diminished throughout with crackles in the bilateral bases Cardio regular rate and regular rhythm GI non-tender, non-distended and no masses GI Narrative: Abdomen soft nontender nondistended with hypoactive bowel sounds. No voluntary guarding or rigidity or pulsatile mass. Auscultation: hypoactive bowel sounds Palpation: soft Back/Spine Back/Spine Narrative: No bony deformity or step-off of the thoracic or lumbar spine; no midline tenderness to palpation Extremity Extremity Narrative: There is +2 pitting edema to the bilateral lower extremities which is equal and symmetric Pelvis is stable there is no shortening or external rotation of either lower extremity No signs of long bone injury such as bony deformity or joint effusion Compartments are soft and compressible going against compartment syndrome Neuro oriented x3 and CN's II-XII intact bilaterally Neuro Narrative: Patient is awake and alert to person place and time Cranial nerves II through XII are grossly intact without focal neurologic deficit Patient is overall generalized weakness but no focal deficit is noted Sensorium / Orientation: alert Psych mental status grossly normal Skin No skin turgor normal Skin Narrative: Chronic stasis changes to the bilateral lower legs No secondary findings to suggest cellulitis or abscess No abrasions or ecchymosis noted Skin turgor is increased MDM MDM MDM Narrative Medical decision making narrative: Patient arrived to the ER with stable vitals. He reported he was sitting on the toilet for multiple hours and then he stood and did not have dizziness or syncope but simply felt too weak to hold himself up and slid down. There is no report of loss of consciousness and there is no signs of head injury or injury to other parts of the body. Therefore I have low concern for internal trauma or a subarachnoid or subdural hemorrhage and do not feel the need for head CT or long bone imaging. With the reported downtime there is high likelihood for rhabdomyolysis so CPK level was obtained. This was elevated at approximately 450 indicating mild rhabdomyolysis. Patient does have chronic kidney disease and his creatinine is at baseline. His TSH is elevated which could be contributing to his swelling and weakness but there is no alteration to his mental status and the value does not correlate with myxedema coma. The chest x-ray shows bilateral pleural effusions but based on patient's history and chart review this is most likely chronic in nature and as he is not in respiratory distress or hypoxic there is no need for BiPAP. At this time the patient is too weak to ambulate. He may need gentle fluid hydration based on his rhabdomyolysis and with his chronic kidney disease and congestive heart failure he would need to be monitored and to in order ensure he does not go into volume overload. Moreover as he is too weak to ambulate and he lives alone he is not able to care for himself. I do feel that his safest option will be admission to the hospital for continued monitoring as well as PT/OT evaluation with potential placement in rehab or [facility]cc. The family states the patient was in a rehab center roughly a year ago and did well. The patient states that he would prefer a rehab placement based on his progressive/recurrent weakness. Secondary to his I contacted the hospitalist who agrees to accept the patient for continued treatment and care with potential [facility]/rehab placement regarding his weakness and inability to care for self. History & Record Review Discussion w/independent historian: Patient and Family Lab Data Attestation: I reviewed the patient's lab results. Labs: Laboratory Results - last 24 hr 04/05/25 00:25 WBC 6.0 RBC 5.46 Hgb 16.2 Hct 46.9 MCV 85.9 MCH 29.7 MCHC 34.5 RDW Std Deviation 60.8 H RDW Coeff of Anuradha 20.6 H Plt Count 194 MPV 11.2 Immature Gran % (Auto) 0.500 Neut % (Auto) 70.4 H Lymph % (Auto) 14.4 L [place] % (Auto) 11.2 H Eos % (Auto) 2.2 Baso % (Auto) 1.3 H Absolute Neuts (auto) 4.2 Absolute Lymphs (auto) 0.86 Nucleated RBC % 0 Differential Comment SCANNED Plt Morphology Comment LARGE Anisocytosis 1+ Ovalocytes RARE Sodium 141 Potassium 3.7 Chloride 103 Carbon Dioxide 19.6 L Anion Gap 18 H BUN 36 H Creatinine 2.38 H Estim Creat Clear Calc 23.30 L Est GFR (MDRD) Non-Af 26 L BUN/Creatinine Ratio 15.0 Glucose 75 Calcium 9.4 Magnesium 2.0 Total Creatine Kinase 449 H NT pro BNP II > 52425 H TSH 13.700 H Radiography Diagnostic Testing: Clinical Impression(s) from Imaging Studies Chest X-Ray 04/05/25 00:36 IMPRESSION: Moderate bilateral pleural effusions. Passive atelectatic airspace disease of the lower lobes. Moderate central pulmonary venous congestion. Moderate interstitial pulmonary congestion. AICD is in good position. Enlarged cardiac silhouette. Reading Location: [place] [id number] Chest x-ray as interpreted by the emergency medicine physician reveals moderate bilateral pleural effusions with atelectasis without obvious infiltrate or pneumothorax Management Discussion w/another healthcare provider: Hospitalist Discharge Plan Triage Chief Complaint: Fall ED Provider: Shaun Taveras Dx/Rx/DC Orders Clinical Impression: Congestive heart failure, Generalized weakness, Rhabdomyolysis, Hypertension, Chronic kidney disease Prescriptions: No Action sucralfate 100 mg/mL suspension 10 ml PO BID Qty: 1000 0RF pantoprazole 40 mg tablet,delayed release (DR/EC) 40 mg PO BID Qty: 120 3RF colestipol 1 gram tablet 0.5 g PO .every other day 30 Days Qty: 30 1RF metoprolol succinate 100 mg Tablet Extended Release 24 Hr 100 mg PO DAILY levothyroxine 75 mcg Tablet 75 mcg PO DAILY tamsulosin 0.4 mg Capsule 0.4 mg PO DAILY Rx Instructions: source is MD office not daughter in law Men's 50 Plus Multivitamin 400-20-370 mcg Tablet 1 tab PO DAILY mecobalamin (vitamin B12) [B12 Active] 1,000 mcg Tablet,Chewable 1,000 mcg PO DAILY ferrous sulfate 325 mg (65 mg iron) tablet 325 mg PO DAILY Qty: 30 0RF sertraline 50 mg tablet 50 mg PO DAILY gabapentin 400 mg capsule 400 mg PO TID glimepiride 1 mg tablet 1 mg PO DAILY Rx Instructions: source is per pt PCP med list rosuvastatin 20 mg tablet 20 mg PO DAILY Rx Instructions: source is per pcp med list sacubitril-valsartan [Entresto] 24-26 mg tablet 1 tab PO BID Rx Instructions: source is from pcp office sildenafil 100 mg tablet PO Rx Instructions: source is per pcp med list sucralfate [Carafate] 1 gram tablet 1 g PO BID Rx Instructions: per md office list: #60 starting 11/04/23 with no refills. (source is not daughter in law however, it wont let me change the source) doxycycline monohydrate 100 mg Capsule 100 mg PO BID 5 Days Qty: 10 0RF oxycodone 5 mg Tablet 2.5 - 5 mg PO Q4H PRN PRN (Reason: Pain Score 4-10) 3 Days Qty: 7 0RF miconazole nitrate 2 % Cream 1 applic topical BID Qty: 0 0RF Protocol: *Topical Application Instructions APPLICATION INSTRUCTIONS: left toe web spaces Rx Instructions: In the interdigital webspace in toes insulin lispro [Humalog KwikPen Insulin] 100 unit/mL Insulin Pen See Protocol subcut TIDAC Qty: 0 0RF Protocol: 3. Sliding Scale Insulin Med Dosing Condition: 150-189 mg/dl = 1 unit Condition: 190-229 mg/dl = 2 units Condition: 230-269 mg/dl = 3 units Condition: 270-309 mg/dl = 4 units Condition: 310-349 mg/dl = 5 units Condition: 350-399 mg/dl = 6 units Condition: 400-449 mg/dl = 7 units Condition: Greater than 449 call physician Protocol Text: - Use for Total Daily Dose of Insulin 37-55 units - Obsese, infected, or steroid patients MEDIUM DOSING ALGORITHIM acetaminophen 325 mg Tablet 650 mg PO Q6H PRN PRN (Reason: Pain 1-10 Or Fever >100.7) Qty: 0 0RF torsemide 20 mg tablet 20 mg PO BID 30 Days Qty: 0 0RF Rx Instructions: pt takes 40mg po BID spironolactone 25 mg Tablet 25 mg PO DAILY 30 Days Qty: 0 0RF doxycycline hyclate 100 mg tablet 100 mg PO BID Primary Care Provider: Joseph Durand Referrals: Joseph Durand MD [Primary Care Provider] - Print Language: Mongolian Disposition Disposition: Acute Care Hospital [facility]
--- OUTSIDE RECORDS SUMMARY | 2025-04-05 00:25 | XMS RPT_ITS | CCD ---
Author Organization [facility] CliniSynv Care Team Providers Care Him Assistant Name Role Phone Rigoberto Durand Primary Care Provider [phone] Rigoberto Durand Primary Care Provider Dr. Rigoberto Durand Referring Provider Dr. Saud Merida Attending Provider [phone] Enrioc Davenport Emergency Provider [phone] Dr. Mauro Gusman Admit Provider Dr. Mauro Gusman Attending Provider Dr. Mauro Gusman Other Provider Dr. Carlos Barrientos Other Provider Dr. Mauro Gusman Referring Provider Dr. Carlos Barrientos Attending Provider Dr. Saud Merida Other Provider Dr. Les Chance Other Provider Dr. Les Chance Attending Provider Dr. Saud Merida Referring Provider [phone] Rigoberto Duradn Primary Care Provider Dr. Rigoberto Durand Referring Provider Dr. Saud Merida Attending Provider Rigoberto Durand MD Primary Care Provider Dr. Rigoberto Durand Primary Care Provider Dr. Rigoberto Durand Referring Provider Dr. Saud Merida Attending Provider Dr. Raphael Quispe Attending Provider [phone] [place], Gibson Primary Care Provider [phone] Rigoberto Durand MD Primary Care Provider Gibson Roth Primary Care Provider [phone] Dr. Rigoberto Durand MD Primary Care Provider Dr. Rigoberto Durand MD Attending Provider Dr. Harvinder George DO Emergency Provider [phone] Chad ETIENNE, Jany Unavailable Unavailable Pawel BRYANT, Brinda Klein Primary Care Provider Chad ETIENNE, Jany Unavailable Unavailable BRENDA, GIBSON Primary Care Unavailable LISA MUNIZ Attending Unavailable LISA MUNIZ Admitting Unavailable BRENDA, GIBSON Primary Care Unavailable ELIAN, MOISES Admitting Unavailable DEE JONES Attending Unavailable PETRA RENTERIA Attending Unavailable BRINDA BOURNE Primary Care Unavailable RALPH ROTH Attending Unavailable BRENDA, GIBSON Primary Care Unavailable RALPH ROTH Attending Unavailable BRENDA, GIBSON Primary Care Unavailable BRENDA, GIBSON Primary Care Unavailable BRENDA, GIBSON Primary Care Unavailable BRENDA, GIBSON Primary Care Unavailable Dr. Rigoberto Durand MD Primary Care Provider [phone] Dr. Harvinder George DO Attending Provider [phone] Dax Romero DO Emergency Provider [phone] Rigoberto Durand Primary Care Unavailable Rigoberto Durand Attending Unavailable Dax Romero Attending Unavailable Rigoberto Durand Primary Care Unavailable Harvinder George Attending Unavailable Rigoberto Durand Primary Care Unavailable Rigoberto Durand Primary Care Unavailable Rigoberto Durand Attending Unavailable Allergies Allergy Classification Reported Allergen(s) Allergy Type Date of Onset Reaction(s) Facility (9 sources) Seasonal allergy Propensity to adverse reactions to substance 10-24-2015 [facility] [place] (20 sources) Other Propensity to adverse reactions 10-24-2015 [facility] (20 sources) atorvastatin Drug Allergy 09-12-2015 [facility] (20 sources) latanoprost Drug Allergy 05-29-2015 [facility] (20 sources) Lovastatin Propensity to adverse reactions 11-25-2012 [facility] Medications Current Medications Medication Drug Class(es) Dates Sig (Normalized) Sig (Original) acetaminophen 325 mg / HYDROcodone bitartrate 5 mg oral tablet (2 sources) Opioid Agonist Start: 12-12-2024 take 1 tablet by mouth every six hours as needed for pain Hydrocodone-Acetamin ophen 5-325 mg tablet Active 1 {tbl} PO EVERY 6 HOURS NEEDED as needed for Pain 8 2 0 December 12, 2024 Diverticulitis albuterol 0.83 mg/ml inhalant solution (2 sources) beta2-Adrenergic Agonist Start: 09-22-2020 albuterol (PROVENTIL) nebulizer solution 1.25 mg Start: 08-15-2020 albuterol (PRO VENTIL) (2.5 MG/3ML) 0.083% nebulizer solution INHALE 1 VIAL VIA NEBULIZER 3-4 TIMES DIALY 0 08/15/2020 Active aluminum hydroxide 40 mg/ml / magnesium hydroxide 40 mg/ml / simethicone 4 mg/ml oral suspension (1 source) Start: 09-23-2020 aluminum & magnesium hydroxide-simethicone (MAALOX) 200-200-20 MG/5ML suspension 30 mL amoxicillin 875 mg / clavulanate 125 mg oral tablet (7 sources) Penicillin-class Antibacterial Start: 12-12-2024 End: 02-16-2025 take 1 tablet by mouth twice daily in the evening amoxicillin-clavulanate (Augmentin) 875-125 MG tablet Take 1 tablet by mouth 2 times daily for 1 day. 2 tablet 02/15/2025 3:28 PM EDT 02/15/2025 02/16/2025 Active Start: 12-02-2023 Amoxicillin-Po t Clavulanate 500-125 mg Tablet Active 1 {tbl} PO TWICE DAILY WITH MEALS 10 5 0 December 02, 2023 12:00am ascorbic acid 60 mg / beta carotene 5000 unt / copper sulfate 40 mg / dl-alpha tocopheryl acetate 30 unt / sodium selenite 0.04 mg / zinc oxide 40 mg oral tablet (2 sources) Vitamin C Start: 09-21-2020 therapeutic mu ltivitamin-minerals 1 tablet Start: 09-11-2020 take 1 tablet by mouth once da darryn 1 tablet, Oral, DAILY, First dose on Fri09/11/20 at 1815 aspirin 81 mg oral tablet (1 source) Platelet Aggregation Inhibitor, Nonsteroidal Anti-inflammatory Drug take 1 tablet by mouth once daily aspirin 81 MG tablet Take 81 mg by mouth daily 0 Active bismuth subsalicylate 17.5 mg/ml oral suspension (1 source) Bismuth Start: bismuth subsalicylate (PEPTO BISMOL) 262 MG/15ML suspension 30 mL coenzyme q10 30 mg oral capsule (1 source) Start: take 1 capsule by mouth once daily Coenzyme Q10 (COQ-10) 30 MG CAPS Take 1 capsule by mouth daily 30 capsule 0 09/26/2020 Active Start: 09-26-2020 take 1 capsule by mo meh once daily Coenzyme Q10 (COQ-10) 30 MG CAPS Take 1 capsule by mouth daily 30 capsule 0 09/26/2020 Active colestipol hydrochloride 1000 mg oral tablet (11 sources) Bile Acid Sequestrant Start: 11-19-2021 Colestip ol 1 gram tablet Active 0.5 g PO .every other day 30 30 November 19, 2021 12:00am Start: 11-19-2021 take 0.5 g by mouth every other day Colestipol Active 0.5 GM PO .every other day November 19, 2021 12:00am doxycycline monohydrate 100 mg oral capsule (3 sources) Tetracycline-class Drug Start: 12-02-2023 take 1 capsule by mouth twice daily Doxycycline Monohydrate 100 mg Capsule Active 100 mg PO TWICE A DAY 10 5 0 December 02, 2023 12:00am glimepiride 1 mg oral tablet (20 sources) Sulfonylurea Start: 11-27-2023 take 1 tablet by mouth once daily Glimepiride 1 mg tablet Active 1 mg PO DAILY November 27, 2023 12:00am per pcp med list source is per pt PCP med list 3 ml insulin lispro 100 unt/ml pen injector (3 sources) Insulin Analog Start: 12-02-2023 Insulin Lispro (Humalog Kwikpen Insulin) 100 unit/mL Insulin Pen Active 0 U SC THREE TIMES DAILY BEFORE MEALS 0 0 December 02, 2023 12:00am Please contact the information source for Protocol details. iopamidol (ISOVUE-370) 76 % injection 75 mL (1 source) Start: 09-05-2020 iopamidol (ISOVUE-370) 76 % injection 75 mL mecobalamin 1 mg chewable tablet (12 sources) Start: 06-28-2021 Mecobalamin (Vitamin B12) (B12 Active) 1,000 mcg Tablet,Chewable Active 1000 ug PO DAILY June 28, 2021 1:00am anemia miconazole nitrate 20 mg/ml topical cream (3 sources) Azole Antifungal Start: 12-02-2023 Miconazole Nitrate 2 % Cream Active 1 NMA TOPICAL TWICE A DAY 0 0 December 02, 2023 12:00am In the interdigital webspace in toes Please contact the information source for Protocol details. Multiple Vitamin (multivitamin) tablet (20 sources) take 1 tablet by mouth once daily Multiple Vitamin (multivitamin) tablet Take 1 tablet by mouth daily. Active take 1 tablet by mouth once leticia y Multiple Vitamin (multivitamin) tablet Take 1 tablet by mouth daily. 0 Active Multiple Vitamins-Minerals ( MULTIVITAMIN ADULTS PO) (9 sources) Multiple Vitamin s-Minerals (MULTIVITAMIN ADULTS PO) Take by mouth daily 0 Suspended Multiple Vitamin s-Minerals (MULTIVITAMIN ADULTS PO) Take by mouth daily 0 Active Kqgkvxsn-Mwp-Hbhzx-Vit K-Lycop (Men's 50 Plus Multivitamin) 400-20-370 mcg Tablet (12 sources) Start: 06-28-2021 take 50-400 tablets by mouth once daily Tdxtxkda-Elo-Ipknm-Vit K-Lycop (Men's 50 Plus Multivitamin) 400-20-370 mcg Tablet Active 1 TABLET PO DAILY June 28, 2021 2:13pm Start: 06-28-2021 take 50-400 tablets by mouth once daily Ptcyhrpb-Soi-Alwtj-Vit K-Lycop (Men's 50 Plus Multivitamin) 400-20-370 mcg Tablet Active 1 {tbl} PO DAILY June 28, 2021 1:00am not on pcp med list Start: 06-28-2021 take 50-400 tablets by mouth once daily Ootcykcu-Tpy-Kfuax-Vit K-Lycop (Men's 50 Plus Multivitamin) 400-20-370 mcg Tablet Active 1 {tbl} PO DAILY June 28, 2021 1:00am Start: 06-28-2021 take 50-400 tablets by mouth once daily Hjdysgjn-Cav-Jpbdt-Vit K-Lycop (Men's 50 Plus Multivitamin) 400-20-370 mcg Tablet Active 1 TABLET PO DAILY June 28, 2021 12:00am Start: 06-28-2021 take 50-400 tablets by mouth once daily Khvzkryp-Otf-Qbfed-Vit K-Lycop (Men's 50 Plus Multivitamin) 400-20-370 mcg Tablet Active 1 TABLET PO DAILY June 28, 2021 1:00am oxyCODONE hydrochloride 5 mg oral tablet (3 sources) Opioid Agonist Start: 12-02-2023 take 2.5-5 mg by mouth every four hours as needed for pain Oxycodone 5 mg Tablet Active 2.5 - 5 mg PO EVERY 4 HOURS NEEDED as needed for Pain Score 4-10 7 3 0 December 02, 2023 Chronic pain of toe of left foot Pain in left toe(s) Other chronic pain rosuvastatin calcium 20 mg oral tablet (20 sources) HMG-CoA Reductase Inhibitor Start: 11-27-2023 End: 03-03-2025 take 1 tablet by mouth once daily Rosuvastatin 20 mg tablet Active 20 mg PO DAILY November 27, 2023 12:00am per pcp source is per pcp med list End: 03-12-2023 take 1 tablet by mouth in the morning rosuvastatin (Crestor) 5 MG tablet Take 5 mg by mouth in the morning. 0 03/12/2023 Discontinued (Ineffective) sacubitril 24 mg / valsartan 26 mg oral tablet (20 sources) Angiotensin 2 Receptor Jody Start: 02-10-2025 End: 02-15-2025 1 tablet, Oral, 2 times daily, First dose on Fri02/10/25 at 0900, Contraindicated in combination with ROLO inhibitors. Ensure a minimum of 36 hours between any ROLO inhibitor dose and sacubitril-valsartan. Start: 11-27-2023 End: 02-01-2025 1 tablet, Oral, 2 times leticia y, First dose on Fri01/28/25 at 0900, Contraindicated in combination with ROLO inhibitors. Ensure a minimum of 36 hours between any ROLO inhibitor dose and sacubitril-valsartan. Start: 06-05-2022 End: 03-03-2025 take 1 tablet by mouth in the morning sacubitril-valsartan (Entresto) 24-26 MG tablet Indications: Acute HFrEF (heart failure with reduced ejection fraction) ([facility]) Take 1 tablet by mouth in the morning and 1 tablet before bedtime. 180 tablet 1 03/03/2025 Active Start: 02-26-2022 take 1 tablet by jm th in the morning, then take 1 tablet by mouth once at bedtime sacubitril-valsartan (ENTRESTO) 24-26 MG per tablet Take 1 tablet by mouth in the morning and 1 tablet before bedtime. 60 tablet 3 02/26/2022 Active Start: 06-28-2021 End: 08-22-2021 Sacubitril-Valsartan (Entres to) 49-51 mg Tablet Discontinued 1 {tbl} PO TWICE A DAY June 28, 2021 1:00am August 22, 2021 2:26pm Start: 09-21-2020 sacubitril-erika sartan (ENTRESTO) 24-26 MG per tablet 1 tablet Start: 09-15-2020 take 24-26 mg by mouth once sa cubitril-valsartan (ENTRESTO) 24-26 MG per tablet Take 1 tablet by mouth 2 times daily 60 tablet 3 09/15/2020 Active Start: 09-12-2020 sacubitril-erika sartan (ENTRESTO) 24-26 MG per tablet 1 tablet Start: 09-11-2020 End: 09-12-2020 take 1 tablet by mouth twice daily 1 tablet, Oral, 2 TIMES DAILY, First dose on Fri09/11/20 at 2100 Start: 08-25-2020 End: 09-15-2020 take 49-51 mg by mouth once sacubitril-valsartan (ENTR ESTO) 49- 51 MG per tablet Take 1 tablet by mouth 2 times daily 60 tablet 5 08/25/2020 09/15/2020 Discontinued (Stop Taking at Discharge) Start: 06-27-2020 take 97-103 mg by mo uth once sacubitril-valsartan (ENTRESTO) 97-103 MG per tablet Take 1 tablet by mouth 2 times daily 180 tablet 3 06/27/2020 Active sildenafil 100 mg oral tablet (20 sources) Phosphodiesterase 5 Inhibitor Start: 11-27-2023 Sildenafil 100 mg tablet Active PO November 27, 2023 12:00am per pcp med list source is per pcp med list Start: 12-19-2021 End: 03-20-2024 sildenafil (Viagra) 100 MG t ablet Indications: Erectile dysfunction, unspecified erectile dysfunction type TAKE 1 TABLET BY MOUTH NEEDED FOR ERECTILE DYSFUNCTION 10 tablet 5 08/21/2022 09/10/2022 Discontinued (Duplicate order) sildenafil (VIAG RA) 100 MG tablet Take 100 mg by mouth as needed for Erectile Dysfunction 0 Active 3 ml sodium chloride 9 mg/ml injection (4 sources) Start: 09-11-2020 sodium chlorid e flush 0.9 % injection 10 mL Start: 08-29-2020 End: 08-30-2020 0.9 % sodium chloride infusi on Start: 08-22-2020 End: 08-22-2020 0.9 % sodium chloride infusi on spironolactone 25 mg oral tablet (20 sources) Aldosterone Antagonist Start: 06-28-2021 End: 01-09-2024 take 1 tablet by mouth once daily Spironolactone 25 mg Tablet Active 25 mg PO DAILY 0 30 0 December 02, 2023 1:30pm not on pcp list tamsulosin hydrochloride 0.4 mg oral capsule (20 sources) alpha-Adrenergic Jody Start: 09-11-2020 End: 02-15-2025 take 1 capsule by mouth once daily in the evening tamsulosin (Flomax) 0.4 MG 24 hr capsule Take 1 capsule (0.4 mg) by mouth daily. 30 capsule 3 02/01/2025 4:02 PM EDT 02/01/2025 Active End: 02-01-2025 take 1 capsule by mouth every twenty-four hours in the morning tamsulosin (Flomax) 0.4 MG 24 hr capsule Take 0.4 mg by mouth in the morning. 02/01/2025 Discontinued torsemide 20 mg oral tablet (20 sources) Loop Diuretic Start: 02-10-2025 End: 02-15-2025 take 40 mg by mouth once daily 40 mg, Oral, Daily, First dose on Fri02/10/25 at 0900, On hold since Fri02/15/2025 at 0814 until manually unheld Start: 02-02-2025 End: 03-03-2026 take 2 tablets by mouth once daily torsemide (Demadex) 20 MG tablet Take 2 tablets (40 mg) by mouth daily. Patient reports that he takes 20mg twice daily (morning and evening). 200 tablet 1 03/03/2025 03/03/2026 Active Start: 02-02-2025 End: 02-01-2025 take 40 mg by mouth once daily 40 mg, Oral, Daily, Fir st dose (after last modification) on Fri02/02/25 at 0900 Start: 02-02-2025 End: 02-01-2025 take 40 mg by mouth once daily 40 mg, Oral, Daily, Fir st dose (after last modification) on Fri02/02/25 at 0900 Start: 03-18-2024 End: 03-18-2025 take 1 tablet by mouth in the morning torsemide (Demadex) 20 MG tablet Indications: Chronic HFrEF (heart failure with reduced ejection fraction) (HCC) Take 1 tablet (20 mg) by mouth in the morning and 1 tablet (20 mg) in the evening. 180 tablet 1 03/07/2025 Active Start: 06-05-2022 End: 12-18-2024 take 1 tablet by mouth twice daily torsemide (Demadex) 100 MG tablet Indications: Acute HFrEF (heart failure with reduced ejection fraction) (HCC) TAKE 1 TABLET BY MOUTH 2 TIMES DAILY 180 tablet 1 12/19/2023 01/09/2024 Discontinued (Dose adjustment) Start: 08-22-2021 End: 12-02-2023 take 2 tablets by mouth twice daily Torsemide 20 mg tablet Discontinued 40 mg PO TWICE A DAY November 27, 2023 12:00am December 02, 2023 1:30pm per md of pt takes 40mg po BID Start: 08-22-2021 take 40 mg by mouth twice leticia y Torsemide Active 40 MG PO TWICE A DAY August 22, 2021 1:00am Start: 05-25-2021 End: 08-22-2021 take 1 tablet by mouth twice daily Torsemide 100 mg Tablet Discontinued 100 mg PO TWICE A DAY June 28, 2021 1:00am August 22, 2021 2:34pm Start: 09-27-2020 take 1 tablet by jm once daily torsemide (DEMADEX) 100 MG tablet Take 1 tablet by mouth daily 30 tablet 3 09/27/2020 Active Start: 09-25-2020 torsemide (DEM ADEX) tablet 100 mg Start: 09-16-2020 End: 09-26-2020 take 4 tablets by mouth once daily torsemide (DEMADEX) 20 MG tablet Take 4 tablets by mouth daily 30 tablet 3 09/16/2020 09/26/2020 Discontinued (Stop Taking at Discharge) Start: 09-16-2020 torsemide (DEM ADEX) tablet 80 mg vitamin b12 1 mg oral tablet (20 sources) Vitamin B12 Start: 09-26-2020 End: 02-15-2025 take 1 tablet by mouth in the morning cyanocobalamin (Vitamin B-12) 1000 MCG tablet Take 1 tablet by mouth in the morning. 09/26/2020 Active Start: 09-21-2020 vitamin B-12 ( CYANOCOBALAMIN) tablet 1,000 mcg Start: 09-11-2020 End: 09-21-2020 take 1000 ug by mouth once daily 1,000 mcg, Oral, DAILY, First dose on Fri09/11/20 at 2100 Completed/Discontinued Medications Medication Drug Class(es) Dates Sig (Normalized) Sig (Original) Acetaminophen (7 sources) Start: 02-10-2025 End: 02-15-2025 take 1 tablet by mouth every six hours as needed for pain and fever acetaminophen (Tylenol) tablet 650 mg Start: 12-02-2023 Acetaminophen 325 mg Tablet Active 650 mg PO EVERY 6 HOURS NEEDED as needed for Pain 1-10 Or Fever >100.7 0 0 December 02, 2023 12:00am Start: 09-24-2020 acetaminophen (TYLENOL) tablet 650 mg Start: 09-12-2020 acetaminophen (TYLENOL) tablet 650 mg amLODIPine 10 mg / benazepril hydrochloride 40 mg oral capsule (2 sources) Dihydropyridine Calcium Channel Jody, Angiotensin Converting Enzyme Inhibitor Start: 03-23-2008 amlodipine besylate/benazepril(LOTREL 10 MG-40 MG CAP) Take one(1) tablet daily. 0 03/23/2008 Active Comment on above: Take one(1) tablet daily. apixaban 2.5 mg oral tablet (20 sources) Factor Xa Inhibitor Start: 06-28-2021 End: 08-22-2021 take 1 tablet by mouth twice daily Apixaban (Eliquis) 2.5 mg Tablet Discontinued 2.5 mg PO TWICE A DAY June 28, 2021 1:00am August 22, 2021 2:22pm On Hold: Resume on 07/14/21. Resume Eliquis on 07/14/21. Start: 08-25-2020 apixaban (ELIQ UIS) tablet 2.5 mg Start: 08-01-2020 take 1 tablet by jm th twice daily apixaban (ELIQUIS) 2.5 MG TABS tablet Take 1 tablet by mouth 2 times daily 180 tablet 3 08/01/2020 Active ascorbic acid 1000 mg oral tablet (2 sources) Vitamin C Start: 06-08-2011 take 1 tablet by mouth once daily Ascorbic Acid (VITAMIN C) 1,000 mg ORAL tablet Take 1 tablet by mouth once daily. 0 06/08/2011 Active Comment on above: Take 1 tablet by jm th once daily. ascorbic acid 100 mg / biotin 0.15 mg / calcium pantothenate 5 mg / folic acid 1 mg / niacin 20 mg / pyridoxine 10 mg / riboflavin 1.7 mg / thiamine mononitrate 1.5 mg / vitamin b12 0.006 mg oral capsule (2 sources) Nicotinic Acid, Vitamin B12, Vitamin C Start: 02-10-2025 End: 02-15-2025 take 1 capsule by mouth once daily 1 capsule, Oral, Daily, First dose on Fri02/10/25 at 0900 100 ml calcium gluconate 20 mg/ml injection (4 sources) Start: 01-31-2025 End: 01-31-2025 2,000 mg, IntraVENous, at 50 mL/hr, Administer over 2 Hours, Once, On Fri01/31/25 at 1400, For 1 dose, premix bag Start: 01-29-2025 End: 01-29-2025 2,000 mg, IntraVENous, at 50 mL/hr, Administer over 2 Hours, Once, On 01/29/25 at 1430, For 1 dose, premix bag carboxymethylcellulose sodiu m 5 mg/ml ophthalmic solution (2 sources) Start: 01-31-2025 End: 02-01-2025 1 drop, Both Eyes, As needed, dry eyes, Starting on Fri01/31/25 at 1227 cefepime (Maxipime) 2,000 mg in sodium chloride 0.9 % 50 mL IVPB Mini-Bag Plus (4 sources) Start: 02-10-2025 End: 02-15-2025 take 2000 mg intravenously every twelve hours 2,000 mg, IntraVENous, at 12.5 mL/hr, Administer over 4 Hours, Every 12 hours, First dose on Fri02/10/25 at 1600, Dose Optimization BRAD Start: 02-10-2025 End: 02-10-2025 take 2000 mg intravenously every eight hours 2,000 mg, IntraVENous, at 100 mL/hr, Administer over 30 Minutes, Every 8 hours, First dose on Fri02/10/25 at 0345, Mini-Bag Plus bag, Suspected Indication (Select all that apply): Skin and Soft Tissue Infection cholecalciferol 0.025 mg oral tablet (20 sources) Vitamin D Start: 02-10-2025 End: 02-15-2025 take 50 ug by mouth once daily 50 mcg, Oral, Daily, First dose on Fri02/10/25 at 0900 Start: 01-28-2025 End: 02-01-2025 take 25 ug by mouth once daily 25 mcg, Oral, Daily, First dose on Fri01/28/25 at 0900 Start: 09-21-2020 Vitamin D (CHO LECALCIFEROL) tablet 1,000 Units Start: 09-11-2020 take 1000 [IU] by mo ut once daily 1,000 Units, Oral, DAILY, First dose on Fri09/11/20 at 1815 cholecalciferol (Vitamin D-3) 25 MCG (1000 UT) capsule Take by mouth. Active Cholecalciferol (VITAMIN D3) 1000 UNITS CAPS Take by mouth 0 Active cholecalciferol 9.52 unt/ml / glucose 357 mg/ml oral gel (4 sources) Vitamin D Start: 02-10-2025 End: 02-15-2025 Start: 01-28-2025 End: 02-01-2025 clotrimazole 10 mg/ml topical cream (2 sources) Azole Antifungal Start: 01-29-2025 End: 02-01-2025 apply 1 dose topically twice daily Topical, 2 times daily, First dose on Fri01/29/25 at 1430, To inguinal folds in the groin Coenzyme Q10 (COQ-10 PO) (7 sources) End: 09-21-2020 Coenzyme Q10 (COQ-10 PO) Take by mouth daily 0 09/21/2020 Discontinued (LIST CLEANUP) Coenzyme Q10 (CO Q-10 PO) Take by mouth daily 0 Active COMPOUNDED PRESCRIPTION (2 sources) Start: 11-10-2008 COMPOUNDED PRESCRIPTION Resveratrol Antioxidant Support Take one(1) tablet daily. 0 11/10/2008 Active Comment on above: Resveratrol Antioxid ant Support Take one(1) tablet daily. 0.4 ml enoxaparin sodium 100 mg/ml prefilled syringe (2 sources) Low Molecular Weight Heparin Start: 02-10-2025 End: 02-15-2025 inject 40 mg by subcutaneous injection every twenty-four hours 40 mg, SubCUTAneous, Every 24 hours scheduled (Daily), First dose on Fri02/10/25 at 0900, Indication of Use: Prophylaxis-DVT/PE, Indications: Prophylaxis of Venous Thromboembolism ferric carboxymaltose (INJECTAFER) 750 mg in sodium chloride 0.9 % 250 mL IVPB (2 sources) Start: 08-29-2020 End: 08-29-2020 ferric carboxymaltose (INJECTAFER) 750 mg in sodium chloride 0.9 % 250 mL IVPB Start: 08-22-2020 End: 08-22-2020 ferric carboxymaltose (INJEC TAFER) 750 mg in sodium chloride 0.9 % 250 mL IVPB ferrous sulfate 325 mg oral tablet (20 sources) Start: 07-01-2021 End: 02-15-2025 take 325 mg by mouth once daily at breakfast 325 mg, Oral, Daily with breakfast, First dose on Fri02/10/25 at 0800 Start: 06-28-2020 ferrous sulfat e (IRON 325) tablet 325 mg 2 ml furosemide 10 mg/ml injection (17 sources) Loop Diuretic Start: 01-28-2025 End: 02-01-2025 80 mg, IntraVENous, 2 times daily, First dose (after last modification) on Fri02/01/25 at 0830 Start: 01-28-2025 End: 01-28-2025 40 mg, IntraVENous, Once, On Fri01/28/25 at 0220, For 1 dose Start: 09-21-2020 End: 09-21-2020 furosemide (LASIX) 10 MG/ML injection Start: 09-21-2020 End: 09-22-2020 furosemide (LASIX) injection 80 mg Start: 09-13-2020 End: 09-13-2020 furosemide (LASIX) injection 80 mg Start: 09-12-2020 End: 09-12-2020 furosemide (LASIX) injection 80 mg Start: 06-27-2020 End: 09-15-2020 take 80 mg by mouth twice daily 80 mg, Oral, 2 TIMES DAILY, First dose on Fri09/11/20 at 1800 furosemide (LASIX) 100 mg in dextrose 5 % 100 mL infusion (1 source) Start: 09-12-2020 End: 09-15-2020 furosemide (LASIX) 100 mg in dextrose 5 % 100 mL infusion furosemide (LASIX) 500 mg in dextrose 5 % 100 mL infusion (1 source) Start: 09-22-2020 End: 09-25-2020 furosemide (LASIX) 500 mg in dextrose 5 % 100 mL infusion gabapentin 100 mg oral capsule (20 sources) Anti-epileptic Agent Start: 02-10-2025 End: 02-15-2025 take 100 mg by mouth twice daily 100 mg, Oral, 2 times daily, First dose on Fri02/10/25 at 0900 Start: 01-28-2025 End: 02-01-2025 take 100 mg by mouth twice daily 100 mg, Oral, 2 times daily, First dose on Fri01/28/25 at 0900 Start: 11-27-2023 take 1 capsule by [facility] three times daily Gabapentin 400 mg capsule Active 400 mg PO THREE TIMES A DAY November 27, 2023 12:00am per md office list Start: 06-28-2021 End: 12-02-2023 take 1 tablet by mouth twice daily Gabapentin 600 mg Tablet Discontinued 600 mg PO TWICE A DAY 0 0 August 22, 2021 2:48pm December 02, 2023 2:02pm 1/2 tab twice a day for 5 days, then 600mg twice a day thereafter Start: 09-14-2020 End: 10-30-2020 take 1 capsule by mouth twice daily gabapentin (NEURONTIN) 400 MG capsule Take 1 capsule by mouth 2 times daily for 45 days. 90 capsule 0 09/15/2020 10/30/2020 Active Start: 09-11-2020 End: 09-14-2020 take 600 mg by mouth twice daily 600 mg, Oral, 2 TIMES DAILY, First dose on 09/11/20 at 2100 take 2 tablets by mo ut once daily at bedtime Gabapentin 300 mg Tab Take 600 mg by mouth daily at bedtime. 0 Active take 2 tablets by mo uth twice daily gabapentin (NEURONTIN) 100 MG capsule Take 100 mg by mouth. 2 tabs twice daily 0 Active End: 09-15-2020 take 1 tablet by mouth twice daily gabapentin (NEURONTIN) 600 MG tablet Take 600 mg by mouth 2 times daily. 0 09/15/2020 Discontinued (Stop Taking at Discharge) Comment on above: Take 600 mg by mouth daily at bedtime. glipiZIDE 5 mg oral tablet (4 sources) Sulfonylurea Start: 02-10-2025 End: 02-15-2025 2.5 mg, Oral, Daily before breakfast, First dose on Tracy 02/10/25 at 0700, Substituted for glimepiride (Amaryl). Start: 01-29-2025 End: 02-01-2025 2.5 mg, Oral, Daily before b reakfast, First dose on 01/29/25 at 0600, Substituted for glimepiride (Amaryl)., On hold since 01/29/2025 at 1333 until manually unheld glucagon (rdna) 1 mg injecti on (4 sources) Antihypoglycemic Agent Start: 02-10-2025 End: 02-15-2025 Start: 01-28-2025 End: 02-01-2025 50 ml glucose 50 mg/ml injec tion (8 sources) Start: 02-10-2025 End: 02-15-2025 Start: 02-10-2025 End: 02-15-2025 Start: 01-28-2025 End: 02-01-2025 Start: 01-28-2025 End: 02-01-2025 0.5 ml heparin sodium, porcine [id number] unt/ml prefilled syringe (2 sources) Unfractionated Heparin, Anti-coagulant Start: 01-29-2025 End: 02-01-2025 inject 1 dose by subcutaneous injection three times daily 5,000 Units, SubCUTAneous, Every 8 hours scheduled (3 times per day), First dose on 01/29/25 at 1400 Insulin Lispro (Humalog) injection 0-12 Units (4 sources) Start: 02-10-2025 End: 02-15-2025 Insulin Lispro (Humalog) injection 0-12 Units Start: 01-28-2025 End: 02-01-2025 Insulin Lispro (Humalog) inj ection 0-12 Units levothyroxine sodium 0.025 mg oral tablet (20 sources) l-Thyroxine Start: 01-28-2025 End: 02-01-2025 take 25 ug by mouth once daily 25 mcg, Oral, Daily, First dose on Fri01/28/25 at 0900, Tube feeding (TF) interaction, obtain physician order to manage, recommend holding TF for 30 minutes before and after dose. Start: 06-28-2021 take 1 tablet by jm th once daily Levothyroxine 75 mcg Tablet Active 75 ug PO DAILY June 28, 2021 1:00am thyroid Start: 12-07-2020 End: 02-15-2025 take 1 tablet by mouth in the morning levothyroxine (Synthroid, Levoxyl) 25 MCG tablet Take 25 mcg by mouth in the morning. 12/07/2020 Active loperamide hydrochloride 2 mg oral capsule (6 sources) Opioid Agonist Start: 02-10-2025 End: 02-15-2025 take 2 mg by mouth four times daily as needed for diarrhea 2 mg, Oral, 4 times daily PRN, diarrhea, Starting on 02/12/25 at 1414, After each loose stool Start: 01-29-2025 End: 02-01-2025 take 2 mg by mouth four times daily as needed for diarrhea 2 mg, Oral, 4 times daily PRN, diarrhea, Starting on 01/29/25 at 1610, After each loose stool lovastatin 40 mg oral tablet (2 sources) HMG-CoA Reductase Inhibitor Start: 03-23-2008 LOVASTATIN 40 MG TAB Take one(1) tablet daily. 0 03/23/2008 Active Comment on above: Take one(1) tablet d aily. 50 ml magnesium sulfate 40 mg/ml injection (7 sources) Start: 01-30-2025 End: 01-30-2025 2,000 mg, IntraVENous, at 25 mL/hr, Administer over 2 Hours, Once, On Fri01/30/25 at 1800, For 1 dose, Recommended infusion rate not to exceed 1,000 mg (milligrams) per hour. Start: 09-25-2020 End: 09-25-2020 magnesium sulfate 2000 mg in 50 mL IVPB premix Start: 09-22-2020 End: 09-22-2020 magnesium sulfate 2000 mg in 50 mL IVPB premix Start: 09-14-2020 End: 09-14-2020 magnesium sulfate 2000 mg in 50 mL IVPB premix magnesium sulfate IVPB premix 2,000 mg (2 sources) Start: 02-12-2025 End: 02-15-2025 magnesium sulfate IVPB premix 2,000 mg melatonin 5 mg disintegrating oral tablet (5 sources) Start: 02-11-2025 End: 02-15-2025 take 10 mg by mouth once daily as needed for sleep 10 mg, Oral, Nightly PRN, sleep, Starting on Fri02/11/25 at 2124 Start: 02-10-2025 End: 02-11-2025 take 5 mg by mouth once daily as needed for sleep 5 mg, Oral, Nightly PRN, sleep, Starting on Fri02/10/25 at 1951 Start: 09-15-2020 melatonin tabl et 3 mg 24 hr metFORMIN hydrochloride 500 mg extended release oral tablet (14 sources) Biguanide Start: 08-20-2021 End: 08-22-2021 take 1 tablet by mouth once daily Metformin 500 mg tablet extended release 24 hr Discontinued 500 mg PO DAILY August 20, 2021 1:00am August 22, 2021 2:26pm Start: 11-10-2008 metformin hcl( GLUCOPHAGE 500 MG TAB) Take one(1) tablet twice daily. 0 11/10/2008 Active Comment on above: Take one(1) tablet t wice daily. metOLazone 5 mg oral tablet (13 sources) Thiazide-like Diuretic Start: 06-28-2021 End: 08-22-2021 Metolazone 5 mg Tablet Discontinued 5 mg PO MOWEFR June 28, 2021 1:00am August 22, 2021 2:26pm Start: 09-22-2020 End: 09-25-2020 metOLazone (ZAROXOLYN) table t 5 mg 24 hr metoprolol succinate 100 mg extended release oral tablet (20 sources) beta-Adrenergic Jody Start: 02-10-2025 End: 02-15-2025 take 100 mg by mouth once daily 100 mg, Oral, Daily, First dose on Tracy 02/10/25 at 0900, Do not crush or chew. Start: 08-21-2015 take 1 tablet by jm th every twenty-four hours in the morning metoprolol succinate XL (Toprol-XL) 100 MG 24 hr tablet Take 100 mg by mouth in the morning. 08/21/2015 Active Start: 03-23-2008 End: 02-01-2025 take 100 mg by mouth once daily 100 mg, Oral, Daily, F irst dose on Fri01/28/25 at 0900, Do not crush or chew. Comment on above: Take one(1) tablet d aily. multivitamins(DAILY VITAMIN TAB) (2 sources) Start: 03-23-20 multivitamins(DAILY VITAMIN TAB) Take one(1) tablet daily. 0 03/23/2008 Active Comment on above: Take one(1) tablet d aily. omeprazole 20 mg delayed release oral capsule (2 sources) Proton Pump Inhibitor Start: 03-29-20 13 take 2 capsules by mouth twice daily omeprazole 20 mg capsule Take 2 capsules by mouth twice daily. 180 capsule 2 03/29/2013 Active Comment on above: Take 2 capsules by m outh twice daily. ondansetron ODT (Zofran-ODT) disintegrating tablet 4 mg (2 sources) Start: 02-11-20 End: 02-16-20 take 1 tablet by mouth every eight hours as needed for nausea and vomiting ondansetron ODT (Zofran-ODT) disintegrating tablet 4 mg pantoprazole 40 mg delayed release oral tablet (20 sources) Proton Pump Inhibitor Start: 08-22-19 End: 09-22-19 take 1 tablet by mouth twice daily Pantoprazole (Protonix) 40 mg tablet,delayed release (DR/EC) Discontinued 40 mg PO TWICE A DAY 60 0 September 21, 2021 11:42am September 21, 2021 11:44am Start: 02-03-2017 End: 03-03-2025 take 1 tablet by mouth once daily Pantoprazole 40 mg Tablet,Delayed Release (Dr/Ec) Discontinued 40 mg PO DAILY June 28, 2021 1:00am August 22, 2021 2:26pm Start: 03-18-2013 take 1 dose by mouth once daily before breakfast pantoprazole 40 mg GrPS Take 1 Packet by mouth daily before breakfast. 0 03/18/2013 Active Comment on above: Take 1 Packet by jm th daily before breakfast. perflutren lipid microspheres (DEFINITY) injection 1.65 mg (2 sources) Start: 03-20-2022 End: 03-20-2022 perflutren lipid microspheres (DEFINITY) injection 1.65 mg Start: 08-23-2020 End: 08-26-2020 perflutren lipid microsphere s (DEFINITY) injection 1.65 mg perflutren protein A microsp here (Optison) 3 mL in sodium chloride (PF) 0.9 % 10 mL IV (2 sources) Start: 01-31-2025 End: 01-31-2025 0-10 mL, IntraVENous, IMG on ce PRN, other, Suboptimal echo image, Starting on Fri01/31/25 at 1153, For 1 dose, CV Procedural Medications, Administer via slow IVP for suboptimal echocardiogram enhancement. May administer as divided doses to reach optimal image enhancement potassium bicarbonate 25 meq effervescent oral tablet (1 source) Start: 09-25-2020 End: 09-25-2020 potassium bicarbonate (K-LYT E) disintegrating tablet 50 mEq microencapsulated potassium chloride 10 meq extended release oral tablet (20 sources) Start: 02-12-2025 End: 02-12-2025 40 mEq, Oral, Once, On 02/12/25 at 2200, For 1 dose, Best given with food and plenty of water to minimize gastric irritation. Do not crush or chew. Start: 02-12-2025 End: 02-12-2025 40 mEq, Oral, Once, On Sat at 2200, For 1 dose, Best given with food and plenty of water to minimize gastric irritation. Do not crush or chew. Start: 02-12-2025 End: 02-13-2025 take 1 [oz_av] by mouth twice daily 40 mEq, Oral, 2 times daily, First dose on 02/12/25 at 0900, For 2 doses, Dissolve each packet in 4 ounces of water = 5 mEq per 1 oz fluid., Indications: Hypokalemia Start: 02-12-2025 End: 02-15-2025 potassium chloride CR (Klor- Con M10) ER tablet 40 mEq Start: 01-31-2025 End: 01-31-2025 40 mEq, Oral, Once, On Mon at 1400, For 1 dose, May give alternative linked oral order (ordered as effervescent, packet, or liquid solution) if patient unable to tolerate tablet. K Lab Replacement Action 3.1 to 3.5 40 mEq ORAL x 1 Under 3.1 Refer to IV replacement protocol Recheck K level in AM. Protocol not for use in patients with CrCl less than 30 mL/min. Do not crush or chew. Start: 01-29-2025 End: 01-30-2025 20 mEq, Oral, Once, On Sat at 1100, For 1 dose, Best given with food and plenty of water to minimize gastric irritation. Do not crush or chew. Start: 09-26-2020 take 1 tablet by jm three times daily at mealtime potassium chloride (KLOR-CON M) 20 MEQ extended release tablet Take 1 tablet by mouth 3 times daily (with meals) 90 tablet 1 09/26/2020 Active Start: 09-26-2020 End: 09-26-2020 take 1 tablet by mouth three times daily at mealtime potassium chloride (KLOR-CON M) 20 MEQ extended release tablet Take 1 tablet by mouth 3 times daily (with meals) 90 tablet 1 09/26/2020 09/26/2020 Discontinued Start: 09-23-2020 End: 01-09-2024 take 1 tablet by mouth twice daily Potassium Chloride 20 mEq Tablet,Er Particles/Crystals Discontinued 20 meq PO TWICE A DAY June 28, 2021 1:00am December 02, 2023 1:28pm not on pcp med list Start: 09-23-2020 potassium chlo ride (KLOR-CON M) extended release tablet 40 mEq Start: 09-15-2020 End: 09-15-2020 potassium chloride (KLOR-CON M) extended release tablet 40 mEq Start: 09-14-2020 End: 09-14-2020 potassium chloride (KLOR-CON M) extended release tablet 40 mEq promethazine hydrochloride 25 mg oral tablet (1 source) Phenothiazine Start: 09-12-2020 End: 09-12-2020 promethazine (PHENERGAN) tablet 12.5 mg Start: 09-12-2020 End: 09-12-2020 promethazine (PHENERGAN) tab let 12.5 mg sertraline 25 mg oral tablet (20 sources) Serotonin Reuptake Inhibitor Start: 02-10-2025 End: 02-15-2025 take 25 mg by mouth once daily 25 mg, Oral, Daily, First dose on Fri02/10/25 at 0900 Start: 01-28-2025 End: 02-01-2025 take 25 mg by mouth once daily 25 mg, Oral, Daily, Fir st dose on Fri01/28/25 at 0900 Start: 11-27-2023 take 1 tablet by jm th once daily Sertraline 50 mg tablet Active 50 mg PO DAILY November 27, 2023 12:00am per md office Start: 06-28-2021 End: 12-02-2023 take 1 tablet by mouth once daily Sertraline 25 mg Tablet Discontinued 25 mg PO DAILY June 28, 2021 1:00am December 02, 2023 2:03pm mdoffice sucralfate 1000 mg oral tablet (20 sources) Aluminum Complex Start: 11-27-2023 End: 02-15-2025 1 g, Oral, 2 times daily before meals, First dose on Fri02/10/25 at 0700, Give on an empty stomach (1 hr before meals, at bedtime). Separate all other meds by at least 2 hours (exception: antacids may be given only 30 minutes apart). Start: 09-21-2021 take 1 mL by mouth twice daily Sucralfate 100 mg/mL suspension Active 10 mL PO TWICE A DAY 1000 0 September 21, 2021 1:00am md office Start: 07-01-2021 End: 11-27-2023 take 1 tablet by mouth four times daily Sucralfate (Carafate) 1 gram tablet Discontinued 1 g PO .QID 30 0 July 01, 2021 1:00am November 27, 2023 11:03am tadalafil 20 mg oral tablet (17 sources) Phosphodiesterase 5 Inhibitor Start: 03-20-2024 End: 02-01-2025 take 1 tablet by mouth every twenty-four hours as needed tadalafil (Cialis) 20 MG tablet Take 1 tablet (20 mg) by mouth Daily as needed for erectile dysfunction. 10 tablet 09/17/2024 3:41 PM EST 07/20/2024 02/01/2025 Discontinued (Stop taking at discharge) Start: 11-27-2023 End: 12-02-2023 take 1 tablet by mouth every twenty-four hours Tadalafil (Cialis) 20 mg tablet Discontinued 20 mg PO DAILY as needed for sexual activity November 27, 2023 12:00am December 02, 2023 1:40pm administer approximately 30min before sexual activity; do not use more than 1 dose per 24hrs source is from pcp list 1250 mg testosterone 0.0162 mg/mg topical gel (20 sources) Androgen End: 09-22-2024 Testosterone 20.25 MG/1.25GM (1.62%) gel Place on the skin. 09/22/2024 Discontinued (Med list cleanup) therapeutic multivitamin-minera ls (Theragran-M) tablet (2 sources) Start: 01-28-2025 End: 02-01-2025 take 1 tablet by mouth once daily 1 tablet, Oral, Daily, First dose on Fri01/28/25 at 0900 Vancomycin (2 sources) Glycopeptide Antibacterial Start: 02-10-2025 End: 02-10-2025 1,500 mg, IntraVENous, at 125 mL/hr, Administer over 120 Minutes, Once, On Tracy 02/10/25 at 0345, For 1 dose, premix bag, Suspected Indication (Select all that apply): Skin and Soft Tissue Infection vancomycin (VANCOCIN) 1,000 mg in dextrose 5 % 250 mL IVPB (1 source) Start: 09-11-2020 End: 09-11-2020 vancomycin (VANCOCIN) 1,000 mg in dextrose 5 % 250 mL IVPB vitamin b6 100 mg oral tablet (2 sources) Start: 11-10-2008 pyridoxine hcl(VITAMIN B-6 100 MG TAB) Take one(1) tablet two(2) times daily. 0 11/10/2008 Active Comment on above: Take one(1) tablet t wo(2) times daily. Problems Active Problems Problem Classification Problem Date Documented Da te Episodic/Chronic Acute and unspecified renal failure (16 sources) [id number] renal failure; Translations: [Acute kidney failure, unspecified] 07-09-2021 Episodic Acute posthemorrhagic anemia (20 sources) Acute posthemorrhagic anemia; Translations: [Acute posthemorrhagic anemia] 07-09-2021 Episodic Cancer of bladder (20 sources) Malignant neoplasm, overlapping lesion of bladder; Translations: [Malignant neoplasm of overlapping sites of bladder] Onset: 6 10-20-2015 Chronic Chronic kidney disease (20 sources) Chronic kidney disease stage 3B ; Translations: [Stage 3b chronic kidney disease] Onset: 1 09-21-2020 Chronic Conduction disorders (20 sources) Left bundle branch block; Translations: [Cardiac defibrillator in situ] Onset: 1 08-24-2020 Chronic Congestive heart failure; nonhypertensive (20 sources) Chronic systolic heart failure; Translations: [Acute on chronic systolic heart failure] Onset: 1 08-24-2020 Chronic Diabetes mellitus without complication (1 source) Type 2 diabetes mellitus without complications; Translations: [Type 2 diabetes mellitus without complications] Onset: 5 Chronic Diseases of mouth; excluding dental (13 sources) Minor oral aphthous ulceration; Translations: [Recurrent oral aphthae] Episodic Diseases of white blood cells (4 sources) Leukocytosis; Translations: [Elevated white blood cell count, unspecified] 11-27-2023 Chronic Disorders of lipid metabolism (20 sources) Hyperlipidemia; Translations: [Hyperlipidemia, unspecified] Onset: 1 08-01-2020 Chronic Diverticulosis and diverticulitis (2 sources) Diverticulitis; Translations: [Diverticulitis of intestine, part unspecified, without perforation or abscess without bleeding] 12-12-2024 Chronic E Codes: Fall (1 source) Fall; Translations: [Unspecified fall, initial encounter] 04-01-2025 Episodic Esophageal disorders (19 sources) Gastroesophageal reflux disease; Translations: [Gastro-esophageal reflux disease without esophagitis] Onset: 3 Chronic Essential hypertension (20 sources) Hypertensive disorder; Translations: [Essential hypertension] Onset: 1 08-01-2020 Chronic Fluid and electrolyte disorders (12 sources) Hypokalemia; Translations: [Hypokalemia] 07-09-2021 Episodic Fracture of lower limb (3 sources) Closed fracture proximal phalanx, toe ; Translations: [Displaced fracture of proximal phalanx of left lesser toe(s), initial encounter for closed fracture] 12-10-2023 Episodic Gastrointestinal hemorrhage (20 sources) Gastrointestinal hemorrhage; Translations: [Gastrointestinal hemorrhage, unspecified] Episodic Malaise and fatigue (4 sources) Asthenia; Translations: [Weakness] 11-27-2023 Episodic Non-Hodgkin`s lymphoma (20 sources) Follicular non-Hodgkin's lymphoma; Translations: [Follicular lymphoma, unspecified, unspecified site] Onset: 8 10-20-2015 Chronic Open wounds of head; neck; and trunk (1 source) Laceration of head; Translations: [Laceration without foreign body of unspecified part of head, initial encounter] 04-01-2025 Episodic Other circulatory disease (12 sources) Low blood pressure; Translations: [Hypotension, unspecified] 07-09-2021 Episodic Other circulatory disease (12 sources) Orthostatic hypotension; Translations: [Orthostatic hypotension] 08-30-2021 Episodic Other circulatory disease (1 source) Orthostatic hypotension; Translations: [Orthostatic hypotension] Episodic Other connective tissue disease (4 sources) Rhabdomyolysis; Translations: [Rhabdomyolysis] 11-27-2023 Episodic Other connective tissue disease (3 sources) Chronic pain of left foot; Translations: [Pain in left toe(s)] 12-10-2023 Episodic Other gastrointestinal disorders (20 sources) Malabsorption - iron; Translations: [Intestinal malabsorption, unspecified] Onset: 1 08-15-2020 Chronic Other gastrointestinal disorders (12 sources) Constipation; Translations: [Constipation, unspecified] 02-18-2022 Episodic Other gastrointestinal disorders (5 sources) Constipation, unspecified; Translations: [Constipation, unspecified] Episodic Other injuries and conditions due to external causes (1 source) Closed injury of head; Translations: [Unspecified injury of head, initial encounter] 04-01-2025 Episodic Other male genital disorders (2 sources) Male erectile dysfunction, unspecified; Translations: [Impotence of organic origin] 12-22-2023 Chronic Other nutritional; endocrine; and metabolic disorders (12 sources) Hyperuricemia; Translations: [Hyperuricemia without signs of inflammatory arthritis and tophaceous disease] 07-09-2021 Episodic Belen-; endo-; and myocarditis; cardiomyopathy (except that caused by tuberculosis or sexually transmitted disease) (20 sources) Cardiomyopathy; Translations: [Other cardiomyopathies] Onset: 1 08-01-2020 Chronic Residual codes; unclassified (2 sources) Bilateral lower limb edema; Translations: [Localized edema] 01-28-2025 Episodic Residual codes; unclassified (2 sources) Localized edema; Translations: [Localized edema] Onset: 5 Episodic Skin and subcutaneous tissue infections (20 sources) Cellulitis of lower limb; Translations: [Cellulitis of unspecified part of limb] Onset: 5 02-10-2025 Episodic Spondylosis; intervertebral disc disorders; other back problems (10 sources) Spinal stenosis of lumbar region; Translations: [Spinal stenosis, lumbar region without neurogenic claudication] Episodic Unclassified (2 sources) 1 Year Follow-up; Translations: [1 Year Follow-up] Onset: 5 Past or Other Problems Problem Classification Problem Date Documented Da te Episodic/Chronic Abdominal pain (20 sources) Right upper quadrant pain; Translations: [Epigastric pain] Onset: 03-11-2013 09-18-2020 Episodic Biliary tract disease (20 sources) Cholelithiasis without obstruction; Translations: [Calculus of gallbladder without cholecystitis without obstruction] Onset: 03-11-2013 09-18-2020 Episodic Deficiency and other anemia (20 sources) Iron deficiency anemia; Translations: [Iron deficiency anemia, unspecified] Onset: 08-15-2020 08-15-2020 Episodic Gastroduodenal ulcer (except hemorrhage) (20 sources) H/O: peptic ulcer; Translations: [Personal history of peptic ulcer disease] Onset: 09-18-2020 09-18-2020 Episodic Lymphadenitis (2 sources) Lymphadenopathy; Translations: [Enlarged lymph nodes, unspecified] Onset: 03-23-2008 03-23-2008 Episodic Other and unspecified benign neoplasm (2 sources) History of polyp of colon; Translations: [Personal history of colonic polyps] Onset: 03-11-2013 03-11-2013 Episodic Other and unspecified benign neoplasm (2 sources) Polyp of colon; Translations: [Polyp of colon] Onset: 03-29-2013 03-29-2013 Episodic Other lower respiratory disease (2 sources) Rib pain; Translations: [Pleurodynia] Onset: 03-11-2013 03-11-2013 Episodic Phlebitis; thrombophlebitis and thromboembolism (20 sources) Deep venous thrombosis; Translations: [Deep venous thrombosis of peroneal vein] Onset: 08-01-2020 08-01-2020 Episodic Pulmonary heart disease (20 sources) Pulmonary embolism; Translations: [Other pulmonary embolism without acute cor pulmonale] Onset: 08-01-2020 08-01-2020 Episodic Results Test Name Value Interpretation Reference Range Facility Absolute lymphocyte countOrd ered By: Dax Romero on 04-01-2025 Lymphocytes Auto (Unsp spec) [#/Vol] 0.92 10*3/uL 0.83-4.51 [facility] Absolute neutrophil countOrd ered By: Dax Romero on 04-01-2025 Neutrophils (Bld) [#/Vol] 3.4 10*3/uL 2.0-7.7 [facility] Activated partial thrombopla stin time (aPTT) in platelet poor plasma by coagulation aOrdered By: Dax Romero on 04-01-2025 aPTT Coag (PPP) [Time] 47.0 s High 24.1-36.2 [facility] Anion gap in Serum or Plasma Ordered By: Dax Romero on 04-01-2025 Anion gap [Moles/Vol] 19 mmol/L High 5-15 [facility] Automated lymphocyte count a s percentage of total leukocytesOrdered By: Dxa Romero on 04-01-2025 Lymphocytes/100 WBC Auto (Unsp spec) 18.1 % Low 19-41 [facility] BUN/creatinine ratioOrdered By: Daxwillam Romero on 04-01-2025 Urea nitrogen/Creatinine [Mass ratio] 17.4 mg/mg 05-09 [facility] Basic Metabolic Profile (BMP )on 04-01-2025 BUN/CRE 17.4 RATIO Normal 05-09 [facility] Comment on above: Performed By: #### L 500.2500, L500.3400, L100.0100 #### [facility] Laboratory [facility] [place], [address] Calcium [Mass/Vol] 9.2 mg/dL Normal 7.6-11.0 [facility] Comment on above: Performed By: #### L 500.2500, [id number], L100.0100 #### [facility] [address] [place], [address] Chloride [Moles/Vol] 100 mmol/L Normal 98-108 [facility] Comment on above: Performed By: #### L 500.2500, [id number], [id number] #### [facility] [address] [place], [address] CO2 [Moles/Vol] 19.7 mmol/L Low 21.0-32.0 [facility] Comment on above: Performed By: #### L 500.2500, [id number], [id number] #### [facility] [address] [place], [address] Creatinine [Mass/Vol] 2.19 mg/dL High 0.70-1.20 [facility] Comment on above: Performed By: #### L 500.2500, [id number], [id number] #### [facility] [address] [place], [address] ECRCL 26.27 ml/min Low 50-250 [facility] Comment on above: Performed By: #### L 500.2500, [id number], [id number] #### [facility] [address] [place], [address] GAP 19 High 5-15 [facility] Comment on above: Performed By: #### L 500.2500, [id number], [id number] #### [facility] [address] [place], [address] GFR/1.73 sq M.predicted among non-blacks MDRD (S/P/Bld) [Vol rate/Area] 29 mL/min/{1.73_m2} Low >60 [facility] Comment on above: Result Comment: mL/m in/1.73m2 CKD-EPI Creatinine Equation (2020) Performed By: #### L 500.2500, [id number], [id number] #### [facility] [address] [place], [address] Glucose [Mass/Vol] 91 mg/dL Normal 70-99 [facility] Comment on above: Performed By: #### L 500.2500, [id number], [id number] #### [facility] [address] [place], [address] Potassium [Moles/Vol] 3.9 mmol/L Normal 3.3-5.1 [facility] Comment on above: Result Comment: Hemo lysis present, Results??could be affected. ?? Performed By: #### L 500.2500, [id number], [id number] #### [facility] [address] [place], [address] Sodium [Moles/Vol] 139 mmol/L Normal 133-145 [facility] Comment on above: Performed By: #### L 500.2500, [id number], [id number] #### [facility] [address] [place], [address] Urea nitrogen [Mass/Vol] 38 mg/dL High 4-19 [facility] Comment on above: Performed By: #### L 500.2500, L500.3400, L100.0100 #### [facility] Laboratory [address] [place], [address] Basophil percentageOrdered B y: Dax Romero on 04-01-2025 Basophils/100 WBC (Bld) 2.0 % High 0-1 [facility] Bilirubin directOrdered By: Dax Romero on 04-01-2025 Bilirubin.direct [Mass/Vol] 1.42 mg/dL High 0.00-0.30 [facility] Comment on above: Hemolysis present, R esults could be affected. Bilirubin, totalOrdered By: Dax Romero on 04-01-2025 Bilirubin [Mass/Vol] 2.82 mg/dL High 0.00-1.30 [facility] Brain/Head without Contrasto n 04-01-2025 Brain/Head without Contrast [facility] Imaging Services [address] [place], [place] [address] Brain/Head without Contrast MR#: [id number] Acct: [id number] Name: MEGAN NASCIMENTO Rep #: [id number] : 1940 M 84 From: Kartik de la rosa MD PCP: Dr. Rigoberto Durand MD Status: REG ER Study: Brain/Head without Contrast Date of Exam: 03/21 09/14 Exam# [id number] Ordering Dr: Dax Romero DO PROCEDURE: BRAIN/HEAD WITHOUT CONTRAST 04/01/2025 REASON FOR EXAM: TRAUMA Laceration to the right side of the skull. TECHNIQUE: Procedure Code: CTBR Modality: CT Procedure: BRAIN/HEAD WITHOUT CONTRAST Coronal and Sagittal reconstruction series were provided. One or more dose reduction techniques were used (e.g., Automated exposure control, adjustment of the mA and/or kV according to patient size, use of iterative reconstruction technique. RADIATION DOSE SUMMARY: CTDlvol: 44.99 mGy DLP: 829.85 mGycm COMPARISON: Prior study dated June 28, 2021. FINDINGS: Brain: Low density in the periventricular white matter suggests mild chronic small vessel ischemic changes. CSF Spaces: Mild generalized cerebral atrophy Sinuses/Mastoids: Partial opacification at the base of the right maxillary sinus. Bones: No fracture is seen. CT/Brain/Head without Contrast IMPRESSION: CHRONIC CHANGES. NO ACUTE FINDINGS. Reading Location: [id number] CC: Dr. Rigoberto Durand MD; Dr. Dax Romero DO Vice President Sales And Marketing: Signed Normal [facility] CBC W/Diff, Automatedon 03-21 Anisocytosis Ql (Bld) 1+ Normal [facility] Comment on above: Performed By: #### L 500.2500, L500.3400, L100.0100 #### [facility] Laboratory [address] [place], [address] PLT EST ADEQUATE Normal ADEQ [facility] Comment on above: Performed By: #### L 500.2500, L500.3400, L100.0100 #### [facility] Laboratory [address] [place], [address] CT Chest, Abd, Pel w/Contras ton 04-01-2025 CT Chest, Abd, Pel w/Contrast [facility] Imaging Services [address] [facility] [place] [address] CT Chest, Abd, Pel w/Contrast MR#: [id number] Acct: [id number] Name: MEGAN NASCIMENTO Rep #: [id number] : 1940 M 84 From: Kartik de la rosa MD PCP: Dr. Rigoberto Durand MD Status: [facility] ER Study: CT Chest, Abd, Pel w/Contrast Date of Exam: Exam# [id number] Ordering Dr: Dax Romero DO PROCEDURE: CT CHEST, ABD, PEL W/CONTRAST 04/01/2025 REASON FOR EXAM: FALL, LEFT RIB PAIN, TECHNIQUE: Chest, abdomen and pelvis CT with intravenous contrast. Coronal and Sagittal reconstruction series were provided. One or more dose reduction techniques were used (e.g., Automated exposure control, adjustment of the mA and/or kV according to patient size, use of iterative reconstruction technique. PATIENT PREPARATION: Per protocol ORAL CONTRAST TYPE: None. CONTRAST: Isovue-300 VOLUME: 100mL Gauge IV RADIATION DOSE SUMMARY: CTDlvol: 16.4 mGy DLP: 2046.56 mGycm COMPARISON: Prior study dated November 27, 2023. FINDINGS: CT CHEST: Hardware: Left-sided pacemaker is seen. Lymph nodes: No enlarged lymph nodes are seen. Heart and Vasculature: Coronary artery calcification. Cardiomegaly. A dual-chamber pacemaker is seen. Lungs and Airways: Bilateral pleural effusions right greater than left with bibasilar compressive atelectasis. Mild increased markings in the posterior aspect of the right upper lobe abutting the right minor fissure suggestive of atelectasis and/or scarring. Bones: Degenerative changes of the thoracic spine. Hiatal hernia. CT ABDOMEN/PELVIS: Liver: Diffuse fatty infiltration.. Small amount of perihepatic fluid. Fluid is also seen in the right paracolic gutter in keeping with ascites. Small amount of fluid in the pelvis. Gallbladder: Unremarkable Spleen: Normal size. Pancreas: Diffuse fatty atrophy. Adrenals: Unremarkable Kidneys: Bilateral renal atrophy. Stable bilateral renal cysts more prominent on the left side. No evidence of hydronephrosis. Bladder: Unremarkable Small hiatal hernia. Bowel: Colonic diverticulosis without diverticulitis. Appendix: The appendix is not identified. There is no inflammatory process identified in the right lower quadrant to suggest appendicitis. Lymph nodes: Unremarkable. Vasculature: Mild diffuse atherosclerotic calcifications are noted. Increased markings in the anterior abdominal wall subcutaneous tissue. Bones: Degenerative changes of the spine. CT/CT Chest, Abd, Pel w/Contrast IMPRESSION: Bilateral pleural effusions right greater than left with bibasilar atelectasis. Ascites. Stable bilateral renal cysts more prominent on the left side. Fatty infiltration of the liver. Sigmoid diverticulosis. Reading Location: [facility] CC: Dr. Rigoberto Durand MD; Dr. Dax Romero DO Vice President Sales And Marketing: Signed Normal [facility] Carbon dioxide, total [Moles /volume] in Central venous bloodOrdered By: Dax Romero on 04-01-2025 CO2 [Moles/Vol] 19.7 mmol/L Low 21.0-32.0 [facility] Chloride assayOrdered By: Presley Romero on 04-01-2025 Chloride [Moles/Vol] 100 mmol/L 98-108 [facility] Emergency Department Summary on 04-01-2025 Emergency Department Summary [facility] Medical Records Department [address] [place] [address] Emergency Department Summary 04/01/25 MR#: [id number] Acct: [id number] Name: AZAMMEGAN VO Rep #: [id number] : 1940 84 From: Dax Romero DO PCP: Dr. Rigoberto Durand MD Status:REG ER Location: ED ADDENDUM by Dr. Dax Romero DO on 04/01/25 at 1555 Patient's EKG reviewed showed ventricular paced rhythm at a rate of 70 bpm no Sgarbossa criteria met. 04/01/25 1555 Cosigner Signature (if applicable): cc: Dr. Rigoberto Durand MD * Signed HPI History of Present Illness Chief Complaint: Fall Narrative Narrative: Patient is a 84-year-old male with past medical history of chronic kidney disease, heart failure with reduced ejection fraction, BPV, diabetes, PE who presents to the emergency department chief complaint of fall and left rib pain. According to the patient he was taking his morning medication and he dropped one of the pills and bent over to pick this up he states that he lost balance during this episode causing him to fall and hit a bookshelf. He states he did not pass out. He denies any blood thinning medications. Patient states that he did not have any chest pain, shortness of breath, lightness, dizziness prior to the fall he simply lost his balance while trying to picker / packer a pill. He states that over the last month he has had approximately 4 falls and states that ever since he had been diagnosed with diverticulitis. He does live alone. [facility] Medical History Chronic pain of toe of left foot Displaced fracture of proximal phalanx of left lesser toe(s), initial encounter for closed fracture Diabetes MIAU (minor aphthous ulceration) Hiatal hernia CKD (chronic kidney disease), stage IV Pulmonary embolism HFrEF (heart failure with reduced ejection fraction) Blood transfusion during current hospitalisation Anticoagulant-induce d bleeding GI bleed Benign positional vertigo Home Medications ???Medication ???Instructions ???Recorded ???Last Taken ???Type levothyroxine 75 mcg tablet 75 mcg PO DAILY thyroid 06/28/21 U nknown History mecobalamin (vitamin B12) 1,000 1,000 mcg PO DAILY anemia 06/28/21 Unknown History mcg chewable tablet (B12 Active) metoprolol succinate 100 mg 100 mg PO DAILY heart 06/28/21 Unk nown History tablet,extended release 24 hr rulcxczxdskb-dar-iex ic acid-vit 1 tab PO DAILY not on pcp med list 06/28/21 Unknown History K-lycop 400 mcg-20 mcg-370 mcg tablet (Men's 50 Plus Multivitamin) tamsulosin 0.4 mg capsule 0.4 mg PO DAILY per md office list 06/28/21 Unknown History ferrous sulfate 325 mg (65 mg 325 mg PO DAILY #30 tabs 07/01/21 Unknown Rx iron) tablet pantoprazole 40 mg tablet,delayed 40 mg PO BID #120 tabs 09/21/21 U nknown Rx release sucralfate 100 mg/mL oral 10 ml PO BID md office #1,000 mL 0 09/21/21 Unknown Rx suspension colestipol 1 gram tablet 0.5 g (1/2 x 1 gram) PO .every 09/11 Unknown Rx other day 30 days #30 tabs gabapentin 400 mg capsule 400 mg PO TID per md office list 0 11/27/23 Unknown History glimepiride 1 mg tablet 1 mg PO DAILY per pcp med list 04/13 Unknown History rosuvastatin 20 mg tablet 20 mg PO DAILY per pcp 11/27/23 Un known History sacubitril 24 mg-valsartan 26 mg 1 tab PO BID per pcp med list 04/13 Unknown History tablet (Entresto) Held on 12/02/23. Instructions: Hold for at least 1 week. GABI on CKD. sertraline 50 mg tablet 50 mg PO DAILY per md office 11/26 Unknown History sildenafil 100 mg tablet PO per pcp med list 11/27/23 Unkno wn History sucralfate 1 gram tablet (Carafate) 1 g PO BID per MD office list 0 11/27/23 Unknown History acetaminophen 325 mg tablet 650 mg (2 x 325 mg) PO Q6H PRN PRN 12/02/23 Unknown Rx Pain 1-10 Or Fever >100.7 #0 tabs amoxicillin 500 mg-potassium 1 tab PO BIDCM 5 days #10 tabs Unknown Rx clavulanate 125 mg tablet doxycycline monohydrate 100 mg 100 mg PO BID 5 days #10 caps 11/18 11/11 Unknown Rx capsule insulin lispro 100 unit/mL See Protocol subcut TIDAC #0 mL Unknown Rx subcutaneous pen (Humalog KwikPen (U-100) Insulin) miconazole nitrate 2 % topical 1 applic topical BID #0 grams 11/18 11/11 Unknown Rx cream oxycodone 5 mg tablet 2.5 - 5 mg (0.5 - 1 x 5 mg) PO Q4H 12/02/23 Unknown Rx PRN PRN Pain Score 4-10 3 days #7 tabs spironolactone 25 mg tablet 25 mg PO DAILY not on pcp list 30 12/02/23 Unknown Rx days #0 tabs torsemide 20 mg tablet 20 mg PO BID per md of 30 days #0 12/02/23 Unknown Rx tabs amoxicillin 875 mg-potassium 1 tab PO BID 10 days #19 tabs 11/19 12/12 Unknown Rx clavulanate 125 mg tablet hydrocodone-acetamin ophen 5-325mg 1 tab PO Q6H PRN PRN P (more content not included)... Normal [facility] Eosinophil percentageOrdered By: Dax Romero on 04-01-2025 Eosinophils/100 WBC (Bld) 2.4 % 0-5 [facility] Erythrocyte distribution wid th ratioOrdered By: Dax Romero on 04-01-2025 Erythrocyte distribution width (RBC) [Ratio] 20.3 % High 11.6-14.6 [facility] Erythrocyte distribution wid th standard deviationOrdered By: Dax Romero on 04-01-2025 Erythrocyte distribution width (RBC) [Ratio] 61.8 fl High 35.1-43.9 [facility] Glomerular filtration rate ( GFR) estimation/1.73 sq m using serum, plasma, or whole bOrdered By: Dax Romero on 04-01-2025 GFR/1.73 sq M.predicted among non-blacks MDRD (S/P/Bld) [Vol rate/Area] 29 mL/min/{1.73_m2} Low >60 [facility] Comment on above: mL/min/1.73m2 CKD-EP I Creatinine Equation (2020) Hematocrit Auto (Bld) [Volum e fraction]Ordered By: Dax Romero on 04-01-2025 Hematocrit (Bld) [Volume fraction] 49.1 % 40-54 [facility] Hemoglobin measurementOrdere d By: Dax Romero on 04-01-2025 Hemoglobin (Bld) [Mass/Vol] 16.3 g/dL 13.0-16.5 [facility] Immature granulocytes/100 WB C Auto (Bld)Ordered By: Dax Romero on 04-01-2025 Immature granulocytes/100 WBC (Bld) 0.800 % 0.0-0.9 [facility] Comment on above: IG% - Immature Granu locytes (promyelocytes, myelocytes and metamyelocytes) > 1% indicates that a LEFT SHIFT is Present. International normalized rat io (INR) calculationOrdered By: Dax Romero on 04-01-2025 INR Coag (Bld) [Relative time] 1.6 {INR} [facility] Laboratory - Chemistry and C hemistry - challengeOrdered By: Dax Romero on 04-01-2025 AST [Catalytic activity/Vol] 40 U/L High <38 [facility] Comment on above: Hemolysis present, R esults could be affected. Laboratory - Hematology and Cell countsOrdered By: Dax Romero on 04-01-2025 Anisocytosis Ql (Bld) 1+ [facility] Liver Profileon 04-01-2025 Albumin [Mass/Vol] 3.8 g/dL Normal 3.4-4.8 [facility] Comment on above: Performed By: #### L 500.2500, L500.3400, L100.0100 #### [facility] Laboratory [address] [place], [address] ALK PHOS 129 U/L Normal 40-129 [facility] Comment on above: Performed By: #### L 500.2500, L500.3400, L100.0100 #### [facility] Laboratory [address] [place], [address] ALT [Catalytic activity/Vol] 12 U/L Normal <=46 [facility] Comment on above: Performed By: #### L 500.2500, L500.3400, L100.0100 #### [facility] Laboratory [address] [place], [address] AST [Catalytic activity/Vol] 40 U/L High <=37 [facility] Comment on above: Result Comment: Hemo lysis present, Results??could be affected. ?? Performed By: #### L 500.2500, L500.3400, L100.0100 #### [facility] Laboratory [address] [place], [address] Bilirubin [Mass/Vol] 2.82 mg/dL High 0.00-1.30 [facility] Comment on above: Performed By: #### L 500.2500, L500.3400, L100.0100 #### [facility] Laboratory [address] [place], [address] Bilirubin.direct [Mass/Vol] 1.42 mg/dL High 0.00-0.30 [facility] Comment on above: Result Comment: Hemo lysis present, Results??could be affected. ?? Performed By: #### L 500.2500, L500.3400, L100.0100 #### [facility] Laboratory [address] [place], [address] Globulin (S) [Mass/Vol] 3.0 g/dL Normal 2.2-4.2 [facility] Comment on above: Performed By: #### L 500.2500, L500.3400, L100.0100 #### [facility] Laboratory [address] [place], [address] T PROT 6.9 g/dL Normal 5.9-8.4 [facility] Comment on above: Performed By: #### L 500.2500, L500.3400, L100.0100 #### [facility] Laboratory [address] [place], [address] MCV (mean corpuscular volume ) determinationOrdered By: Dax Romero on 04-01-2025 MCV (RBC) [Entitic vol] 87.5 fL 80-94 [facility] Mean corpuscular hemoglobin (MCH) determinationOrdered By: Dax Romero on 04-01-2025 MCH (RBC) [Entitic mass] 29.1 pg 27.0-32.0 [facility] Mean corpuscular hemoglobin concentration (MCHC) determinationOrdered By: Dax Romero on 04-01-2025 MCHC (RBC) [Mass/Vol] 33.2 g/dL 32-36 [facility] Mean platelet volume determi nationOrdered By: Dax Romero on 04-01-2025 Platelet mean volume (Bld) [Entitic vol] 10.8 fL 6.2-12.0 [facility] Monocyte percentageOrdered B y: Dax Romero on 04-01-2025 Monocytes/100 WBC (Bld) 10.6 % High 0-10 [facility] Neutrophil percentageOrdered By: Dax Romero on 04-01-2025 Neutrophils/100 WBC (Bld) 66.1 % 47-70 [facility] Nucleated red blood cell per centageOrdered By: Dax Romero on 04-01-2025 Nucleated RBC/100 WBC (Bld) [Ratio] 0 % 0-5 [facility] Partial Thromboplast Timeon 04-01-2025 aPTT Coag (Bld) [Time] 47.0 s High 24.1-36.2 [facility] Comment on above: Performed By: #### L 300.3900, L300.4310 ####[facility] [id number] [place], [address] Platelet countOrdered By: Presley Romero on 04-01-2025 Platelets (Bld) [#/Vol] 203 10*3/uL 150-450 [facility] Platelet estimateOrdered By: Dax Romero on 04-01-2025 Platelets LM Ql (Bld) ADEQUATE ADEQ [facility] Potassium measurement (mass/ volume)Ordered By: Dax Romero on 04-01-2025 Potassium (Unsp spec) [Mass/Vol] 3.9 mmol/L 3.3-5.1 [facility] Comment on above: Hemolysis present, R esults could be affected. Prothrombin Time w/INRon INR Coag (PPP) [Relative time] 1.6 {INR} Normal [facility] Comment on above: Performed By: #### L 300.3900, L300.4310 ####[facility] [address] [place], [address] PT Coag (PPP) [Time] 19.3 s High 11.7-14.9 [facility] Comment on above: Performed By: #### L 300.3900, L300.4310 ####[facility] [address] [place], [address] INR Normal [facility] Comment on above: Result Comment: JAZZMINE, SPOKE WITH MARK Performed By: #### L 300.3900 ####[facility] [address] [place], [address] PROTIME Normal 11.7-14.9 [facility] Comment on above: Result Comment: JAZZMINE, SPOKE WITH MARK Performed By: #### L 300.3900 ####[facility] [address] [place], [address] Prothrombin timeOrdered By: Dax Romero on 04-01-2025 PT Coag (PPP) [Time] 19.3 s High 11.7-14.9 [facility] RBC Auto (Bld) [#/Vol]Ordere d By: Dax Romero on 04-01-2025 RBC (Bld) [#/Vol] 5.61 10*6/uL 4.6-6.2 [facility] Serum creatinine measurement (mass/volume)Ordered By: Dax Romero on 04-01-2025 Creatinine [Mass/Vol] 2.19 mg/dL High 0.70-1.20 [facility] Serum globulin measurementOr dered By: Dax Romero on 04-01-2025 Globulin (S) [Mass/Vol] 3.0 g/dL 2.2-4.2 [facility] Serum glucose measurement (m ass/volume)Ordered By: Dax Romero on 04-01-2025 Glucose [Mass/Vol] 91 mg/dL 70-99 [facility] Serum or plasma alanine clay otransferase (ALT) measurementOrdered By: Dax Romero on 04-01-2025 ALT [Catalytic activity/Vol] 12 U/L <47 [facility] Serum or plasma albumin geena urement (mass/volume)Ordered By: Dax Romero on 04-01-2025 Albumin [Mass/Vol] 3.8 g/dL 3.4-4.8 [facility] Serum or plasma alkaline camila sphatase measurementOrdered By: Dax Romero on 04-01-2025 ALP [Catalytic activity/Vol] 129 U/L 40-129 [facility] Serum or plasma calcium geena urement (mass/volume)Ordered By: Dax Romero on 04-01-2025 Calcium [Mass/Vol] 9.2 mg/dL 7.6-11.0 [facility] Serum or plasma urea nitroge n measurement (mass/volume)Ordered By: Dax Romero on 04-01-2025 Urea nitrogen [Mass/Vol] 38 mg/dL High 4-19 [facility] Sodium levelOrdered By: Darrin Romero on 04-01-2025 Sodium [Moles/Vol] 139 mmol/L 133-145 [facility] Spine Cervical without Contr ason 04-01-2025 Spine Cervical without Contras [facility] Imaging Services [address] [place], [place] [address] Spine Cervical without Contras MR#: [id number] Acct: [id number] Name: MEGAN NASCIMENTO Rep #: [id number] : 1940 M 84 From: Kartik de la rosa MD PCP: Dr. Rigoberto Durand MD Status: REG ER Study: Spine Cervical without Contras Date of Exam: 0 04/01/25 Exam# [id number] Ordering Dr: Dax Romero DO PROCEDURE: SPINE CERVICAL WITHOUT CONTRAS 04/01/2025 REASON FOR EXAM: TRAUMA TECHNIQUE: Procedure Code: CTSPC Modality: CT Procedure: SPINE CERVICAL WITHOUT CONTRAS Coronal and Sagittal reconstruction series were provided. One or more dose reduction techniques were used (e.g., Automated exposure control, adjustment of the mA and/or kV according to patient size, use of iterative reconstruction technique. RADIATION DOSE SUMMARY: CTDlvol: 23.38 mGy DLP: 509.35 mGycm COMPARISON: None FINDINGS: Alignment: Straightening of the normal cervical lordosis. Vertebrae: Multilevel spondylosis. Soft Tissues: No prevertebral soft tissue swelling. Other: C1-2: Degenerative changes at the atlantoaxial joint. C2-3: Mild degree of disc space narrowing. Facet joint osteoarthritis and hypertrophy worse on the right side. No significant stenosis seen. Minimal anterior listhesis of C2 on C3 most likely secondary to the facet joint osteoarthritis. C3-4: Marked degree of disc space narrowing. Spondylosis. Subchondral sclerosis. Moderate degree of bilateral neural foraminal and central canal stenosis. C4-5: Marked degree of disc space narrowing. Spondylosis. Uncovertebral arthrosis. Mild bilateral neural foraminal stenosis. C5-6: Marked degree of disc space narrowing. Spondylosis. Uncovertebral arthrosis. Mild degree of bilateral neural foraminal stenosis. C6-7: Marked degree of disc space narrowing. Facet joint osteoarthritis and hypertrophy. Mild bilateral neural foraminal stenosis. C7-T1: Mild degree of disc space narrowing. Facet joint osteoarthritis. CT/Spine Cervical without Contras IMPRESSION: Multilevel disc space narrowing and degeneration with the multilevel neural foraminal stenosis and facet joint osteoarthritis. Reading Location: [facility] CC: Dr. Rigoberto Durand MD; Dr. Dax Romero DO Vice President Sales And Marketing: Signed Normal [facility] Total proteinOrdered By: Aye Romero on 04-01-2025 Protein [Mass/Vol] 6.9 g/dL 5.9-8.4 [facility] White blood cell (WBC) count Ordered By: Dax Romero on 04-01-2025 WBC (Bld) [#/Vol] 5.1 10*3/uL 4.4-11.0 [facility] Progress Noteon 03-16-2025 Progress Note Chart reviewed. Attempted to contact patient for transitional follow up. No answer. Unable to leave a , as box is full. Patient's 30 day transitional period ends tomorrow. Will plan for transitional program closure tomorrow (03/17). [facility] 36on 03-15-2025 36 Noted. In reviewing pts dispense report. He is filling medication through [facility] retail pharmacy. With current dosing of 20 mg BID. [facility] 36 It is per pt's preference if Demadex taken a total of 40 mg once daily, vs 20 mg twice daily. [facility] 36on 03-11-2025 36 Name of caller: aYnna Contact phone number: [phone] Relationship to Patient: [facility] Pharm[facility] Provider: Petra Renteria Practice: [facility] Chief Complaint/Reason for Call: Delroy is calling for clarification on directions for medication: torsemide (Demadex) 20 MG tablet- directions state: Take 2 tablets (40 mg) by mouth daily. Patient reports that he takes 20mg twice daily (morning and evening). She is wanting to know if patient should take the 40MG at the same time or one in the morning one in the evening. Yanna stated this is not a urgent request as patient should have some medication left. Please advise [facility] 36on 03-04-2025 36 ----- Message from CHLOE Suarez CNP sent at 03/04/2025 1:06 PM EDT ----- Pt has continued renal insuffiencey in the setting of severe LV dysfunction. I would recommend he continue his present diuretics, including Demadex 40 mg daily. Please ask he have a repeat BMP in 1 week to document stability. ----- Message ----- From: Destin Avery [facility] Results In Sent: 03/04/2025 2:06 AM EDT To: CHLOE Ch CNP I attempted to call Megan. His phone went to [facility]. The Mailbox is full. Will try again later. Second attempt. Not available mailbox is full. Third attempt still not available. I also tried the caregiver number and their voice mailbox has not been set up. I finally reached Megan and relayed the above note to him. He verbalized understanding. He asked that the lab order be sent to PCP as he has an appointment with his PCP on 03/10/25. [facility] Progress Noteon 03-04-2025 Progress Note Pt has continued renal insuffiencey in the setting of severe LV dysfunction. I would recommend he continue his present diuretics, including Demadex 40 mg daily. Please ask he have a repeat BMP in 1 week to document stability. [facility] Office Visiton 03-03-2025 Follow-up visit [id number] Megan Nascimento 1940 M Date Provider Department Center 03/03/2025 [id number] RENTERIA SHMG SB[facility] VARUN SHMG CV Susan Family History Problem Relation Age of Onset High Blood Pressure Father High Blood Pressure Mother Family Status - Relation Status Age at Father Mother Level of Service:60774 [place] OFFICE/OUTPATIENT ESTABLISHED MOD MDM 30 MIN Reason for Visit and Comments: Hospital Follow-up [832] [facility] Progress Noteon 03-03-2025 Progress Note [facility] Cardiology Office Note DATE of SERVICE: 03/03/25 TIME of SERVICE: 2:43 PM Reason for Visit: Chief Complaint Patient presents with Hospital Follow-up History ofPresent Illness: Megan Nascimento is a 84 y.o. male who is known to Dr. Roth. He has a history of nonischemic cardiomyopathy with severe LV dysfunction, EF was 20%, increased to 41% after cardiac resynchronization therapy and defibrillator placement. He was recently admitted to [facility] 01/28/2025-02/01/2025 and treated for heart failure exacerbation, diuresed with IV Lasix. Inpatient transthoracic echo 01/31/2025-noted severe LV dysfunction, EF-12%. He was discharged on Demadex 40 mg daily. It was noted after his discharge he had a readmission 02/10/2025-02/15/2025 in which she was treated for lower extremity cellulitis, and was given IV antibiotics. Today in office he states his weight is stable, he is very cognizant of his daily weights at home. He is down 11 pounds compared to his office visit prior to his admission January 26, 2025. He continues to tolerate his guideline directed therapy including metoprolol succinate 100 mg daily, Entresto 24/26 mg twice daily, continues on Demadex 40 mg daily. He states he continues to have mild swelling and redness of his lower extremities, however much improved overall. Denies any significant symptoms of shortness of breath. He is also treated for stage IV chronic kidney disease, with a GFR in the 20s at baseline, baseline creatinine 2.4. Past Medical History: Medical History[1] Past Surgical History Surgical History[2] Family History Family History[3] Social History Social History[4] Allergies: Allergies[5] Medications: Current Medications[6] Review of Systems: Review of Systems Constitutional: Negative for activity change, chills, diaphoresis, fatigue and fever. Pt states feeling well HENT: Negative for nosebleeds and trouble swallowing. Eyes: Negative for discharge and visual disturbance. Respiratory: Negative for apnea, cough, chest tightness, shortness of breath and wheezing. Denies SOB, states breathing improved Cardiovascular: Negative for chest pain, palpitations and leg swelling. Denies chest pain or palpitations Gastrointestinal: Negative for abdominal distention, abdominal pain, blood in stool, diarrhea, nausea and vomiting. Endocrine: Negative for cold intolerance and heat intolerance. Genitourinary: Negative for hematuria. Musculoskeletal: Negative for gait problem and myalgias. Ambulates with a walker Skin: Negative for color change and rash. Neurological: Negative for dizziness, seizures, syncope, facial asymmetry, speech difficulty, weakness, light-headedness, numbness and headaches. Denies dizziness or light headedness Hematological: Does not bruise/bleed easily. Psychiatric/Behavior al: Negative for dysphoric mood. Physical Examination: Vitals: BP 92/64 (BP Location: Right arm, Patient Position: Sitting, BP Cuff Size: Adult) Pulse 60 Ht 5' 7 (1.702 m) Wt 183 lb (83 kg) SpO2 100% BMI 28.66 kg/m? Body mass index is 28.66 kg/m?. Physical Exam Constitutional: Appearance: Normal appearance. Comments: Elderly, somewhat frail appearing HENT: Head: Normocephalic. Eyes: General: Right eye: No discharge. Left eye: No discharge. Neck: Comments: + JVD Cardiovascular: Rate and Rhythm: Normal rate and regular rhythm. Heart sounds: No murmur heard. Comments: Regular, rate controlled, heart tones are distant Pulmonary: Effort: Pulmonary effort is normal. Breath sounds: Normal breath sounds. No wheezing or rales. Comments: clear Abdominal: General: Bowel sounds are normal. There is no distension. Palpations: Abdomen is soft. Musculoskeletal: Cervical back: Neck supple. Right lower leg: No edema. Left lower leg: No edema. Comments: Mild generalized edema, skin red knees/calves down. Pt states improved, weight stable Skin: General: Skin is warm. Findings: No erythema or rash. Neurological: Mental Status: He is alert and oriented to person, place, and time. Psychiatric: Behavior: Behavior normal. Laboratory Tests: Lab Results Component Value Date GLUCOSE 101 02/15/2025 CALCIUM 8.8 02/15/2025 NA 141 02/15/2025 K 3.5 02/15/2025 CO2 22 (L) 02/15/2025 CL 107 02/15/2025 BUN 24 (H) 02/15/2025 CREATININE 1.94 (H) 02/15/2025 @LASTCMP@ Lab Results Component Value Date CHOL 166 05/14/2021 Lab Results Component Value Date TRIG 109 05/14/2021 Lab Results Component Value Date HDL 34 (L) 05/14/2021 No results found for: LDLCALC No results found for: VLDL Lab Results Component Value Date CHOLHDLRATIO 5 05/14/2021 Other Testing: Cardiac Tests: Echo (date: 01/31/2025): Left Ventricle: Left ventricle size is normal. Mildly increased wall thickness. Severely reduced left ventricular systolic function. EF by 2D [employer] is 1 (more content not included)... [facility] Progress Noteon 03-02-2025 Progress Note 03/02/25 1204 Transitions Post-Discharge Call - Follow-Up Were there any changes to medications since previously reviewed/any questions? No Reason for admission is resolving? Yes Are you experiencing any new symptoms? Yes (Patient reports weight gain. See note below. Will route update to cardiology. He is scheduled to see (Everton Renteria CNP) tomorrow.) Was HHC initiated if ordered? Yes ([facility]/PT) Does patient have all necessary follow up appointments scheduled? Yes;Other information (03/03 Cardiology (Everton Renteria CNP)) Other information for follow-up appointments Patient reports that he thought he had a PCP visit with Dr. Bourne tomorrow and a cardiology visit on Friday. Made him aware of cardiology visit tomorrow and reviewed appointment details.He notes that he will contact Dr. Bourne's office to confirm when his appointment is scheduled for and will reschedule if it is tomorrow. He notes that he plans to attend the cardiology visit. Does the patient have any questions/concerns at this time? 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 Re-introduced myself and my role on [facility]'s transitional team. He reports that the [facility] SN was out to see him this morning and all of his vitals were good. He reports that his weight was 185 lbs this morning, but he had already eaten breakfast and had his shoes on. He mentioned that had been running 177.7 lbs and 176 lbs. Inquired when those weights were from. He notes that one was from over the weekend and the other was on Friday. He notes that he normally weighs himself first thing in the morning before he eats and without shoes on, but his routine was thrown off this morning since the [facility] nurse was out. He denies any swelling in his legs. He reports that he is breathing well on room air. He reports some SOB if he exerts himself too much, but he recovers easily with rest. He has not needed to use his home oxygen recently. He notes that he does have a portable oxygen concentrator if needed at home. He mentioned that he has been using his Torsemide 20mg tabs twice daily (morning and evening) rather than 40mg all at once. He plans to discuss during his cardiology visit tomorrow to see if he should begin taking both tablets at the same time. We reviewed s/s of CHF exacerbation to monitor for (weight gain of 2-3+ lbs overnight and/or 5+ lbs in a week, increased swelling, increased SOB), the importance of daily weights, and the importance of contacting cardiology immediately to report any symptoms or concerns. He states understanding. Let him know that I would send a message over to cardiology to report his weight gain and encouraged him to attend his follow up visit with cardiology tomorrow. Patient notes that he plans to attend. Patient reports that his legs are looking and feeling much better. He notes that the redness is clearing up and his legs look almost normal now. He denies any ongoing heat or pain in his legs. He does report some pain in his knees/shoulders d/t arthritis. Reviewed s/s of cellulitis to monitor for (redness, heat, pain, swelling) and the importance of contacting his PCP immediately with any symptoms or concerns. He states understanding. He notes that he lives home alone and his kids and ex- check in on him. He notes that they also provide transportation to appointments if he does not drive himself. He has not driven since discharge home. He looks forward to getting out of the house for his appointment tomorrow, as he reports cabin fever. He denies any other questions, concerns, or needs at this time. Will route to CHW, Jamila, to complete transitional follow up call next week, as well as complete SDOH assessment. Future transitional outreach scheduled (Any s/s of CHF exacerbation? Has he seen his PCP yet? How are his legs looking? Any s/s of cellulitis?). [facility] Progress Noteon 02-24-2025 Progress Note Chart reviewed. Noted that patient is now scheduled to see cardiology (Everton Renteria CNP) on 03/03. Attempted to contact patient for transitional follow up. No answer. Left VM requesting a return call back. Future transitional outreach scheduled. [facility] [id number] 02-22-2025 [id number] Patient Choice Patient Name: MEGAN NASCIMENTO Date of : 1940 [facility] Progress Noteon 02-17-2025 Progress Note 02/17/25 1332 Transitions Post-Discharge Call - Initial Reviewed patients discharge instructions? Yes (AVS from hospital discharge reviewed.) Was patient able to picker / packer new prescriptions? Yes Medication reconciliation complete? Partially Reviewed (Confirmed that patient picked up his Augmentin and completed the full course. He declined to review a complete med rec at this time, as it was just updated.) Does patient have any questions about medications? No Verified that new DME was delivered? N/A - No DME Ordered (Patient reports that he uses a cane when going out and a walker in the house. He notes that he also has home O2 for nightly use if needed, but he has not needed to use it since discharge home.) Was HHC ordered? Yes If yes, which agency? [facility] Was [facility] initiated if ordered? Yes (Patient reports that [facility] PT was out this morning and SN is supposed to call him tonight to schedule.) Does patient have all necessary follow up appointments scheduled? Plans to schedule (Patient missed his cardiology follow up visit this morning. Encouraged him to reschedule JESSI and offered to provide the contact number for cardiology. He notes that he already has cardiology's phone #. Encouraged him to schedule with his PCP as well.) List upcoming appointments: 05/04 Device Check Does patient have transportation to and from appointments? Yes (Patient reports that he normally drives himself, but will have some take him right now d/t his legs.) Does the patient have any questions/concerns at this time? 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 To Be Determined At Next Outreach (No SW/CHW needs identified at this time.) Are you able to complete routine daily activities? Yes Any ED, urgent care, or admissions since D/C? No (None since discharge on 02/15.) Call to patient for transitional outreach. Spoke with patient and his daughter, , on speaker phone. He reports that he is doing okay and getting around as usual. He notes that he lives alone, but his ex- and 2 daughters check in on him. He notes that [facility] was out to see him this morning; therefore, he did not attend his cardiology follow up visit that was scheduled for 9:00 this morning. Encouraged him to reschedule with cardiology as soon as possible. He notes that he will call them to reschedule either later today or tomorrow and confirmed that he has their phone number. Encouraged him to schedule a follow up visit with his PCP as well. Noted that his PCP was listed incorrectly in [employer]. PCP updated in [employer]. Patient reports that he sees Dr. Bourne. Encouraged him to contact Dr. Bourne immediately with any worsening redness, heat, and/or swelling to his BLE. He states understanding. He reports that he completed his course of Augmentin. He denies much swelling in his legs now. He reports that his legs are reddened and daughter notes that they are maybe a smidge warmer than his other skin, but not hot. Daughter reports that his legs are dry and shiny, like a sunburn. Shedenies any open wounds on his legs or drainage. Encouraged them to keep a close eye on his legs and to contact his PCP immediately with any worsening/spreading redness, heat, or other concerns. They state understanding. Reviewed s/s of CHF exacerbation to monitor for (weight gain of 2-3+ lbs overnight and/or 5+ lbs in a week, increased swelling, increased SOB), the importance of monitoring his daily weights, and the importance of contacting cardiology immediately with any symptoms. He notes that he usually weighs himself, but forgot this morning. He notes that his weight has been consistent and is fluctuating within 2-3 lbs. He reports that his breathing has been pretty good. He has home O2 for bedtime if needed, though he has not needed to use it since discharge home. Patient denies any other questions, concerns, or needs at this time. He is agreeable to further transitional follow up next week. Future transitional outreach scheduled (Did he see/schedule with cardiology/PCP?). [facility] BASIC METABOLIC PANELon 07-2 Anion gap [Moles/Vol] 12 mmol/L Normal 3-[address] [facility] Comment on above: Performed By: #### L AB15 ####Volunteer Services Assistant: DIGNA MORALES ([phone])[facility] ([facility])[address] Calcium [Mass/Vol] 8.8 mg/dL Normal 8.8-10.0 [facility] Comment on above: Performed By: #### L AB15 ####Volunteer Services Assistant: DIGNA MORALES ([phone])[facility] ([facility])[address] Chloride [Moles/Vol] 107 mmol/L Normal 98-107 [facility] Comment on above: Performed By: #### L AB15 ####Volunteer Services Assistant: DIGNA MORALES ([phone])[facility] ([facility])[address] [place] [address] [place] CO2 [Moles/Vol] 22 mmol/L Low 23-31 [facility] Comment on above: Performed By: #### L AB15 ####Volunteer Services Assistant: DIGNA MORALES ([phone])[facility] [place] ([facility])[address] Creatinine [Mass/Vol] 1.94 mg/dL High 0.72-1.[address] [facility] Comment on above: Performed By: #### L AB15 ####Volunteer Services Assistant: DIGNA MORALES ([phone])[facility] [place] [address] [place] GLOMERULAR FILTRATION RATE ML/MIN/1.73 SQ M.PREDICTED 33.3 mL/min/1.73m*2 Low >60.0 [facility] Comment on above: Result Comment: Calc ulation based on the Chronic Kidney Disease Epidemiology Collaboration (CKD-EPI) equation refit without adjustment for race Performed By: #### L AB15 ####Volunteer Services Assistant: DIGNA MORALES ([phone])[facility] Glucose [Mass/Vol] 101 mg/dL Normal 82-115 [facility] Comment on above: Performed By: #### L AB15 ####Volunteer Services Assistant: DIGNA MORALES ([id number])[facility] [place] [address] [place] Potassium [Moles/Vol] 3.5 mmol/L Normal 3.5-5.[address] [facility] Comment on above: Result Comment: [facility] potassium values may be up to 0.5 mmol/L lower than serum values. Performed By: #### L AB15 ####Volunteer Services Assistant: DIGNA MORALES ([phone])[facility] Sodium [Moles/Vol] 141 mmol/L Normal 136-145 [facility] Comment on above: Performed By: #### L AB15 ####Volunteer Services Assistant: DIGNA MORALES ([id number])[facility] ([facility])[address] Urea nitrogen [Mass/Vol] 24 mg/dL High 9-23 [facility] Comment on above: Performed By: #### L AB15 ####Volunteer Services Assistant: DIGNA MORALES ([phone])[facility] ([facility])[address] Basic metabolic 1998 panelon 02-15-2025 Anion gap [Moles/Vol] 12 mmol/L 3 - 13 mmol/L [facility] Calcium [Mass/Vol] 8.8 mg/dL 8.8 - 10. 0 mg/dL [facility] Chloride [Moles/Vol] 107 mmol/L 98 - 10 7 mmol/L [facility] CO2 [Moles/Vol] 22 mmol/L Low 23 - 31 mmol/L [facility] Creatinine [Mass/Vol] 1.94 mg/dL High 0.72 - 1.25 mg/dL [facility] GFR/1.73 sq M.predicted (S/P/Bld) [Vol rate/Area] 33.3 mL/min Low - PINF [facility] Comment on above: Calculation based on the Chronic Kidney Disease Epidemiology Collaboration (CKD-EPI) equation refit without adjustment for race Glucose [Mass/Vol] 101 mg/dL 82 - 115 mg/dL [facility] Interpretation and review of laboratory results Abnormal [facility] Potassium [Moles/Vol] 3.5 mmol/L 3.5 - 5.1 mmol/L [facility] Comment on above: Plasma potassium erika ues may be up to 0.5 mmol/L lower than serum values. Sodium [Moles/Vol] 141 mmol/L 136 - 145 mmol/L [facility] Urea nitrogen [Mass/Vol] 24 mg/dL High 9 - 23 mg/d L [facility] CBC (HEMOGRAM)on 02-15-2025 Erythrocyte distribution width (RBC) [Ratio] 19.1 % High 11.5-15.0 [facility] Comment on above: Performed By: #### L AB294 ####Volunteer Services Assistant: DIGNA MORALES ([phone])[facility] ([facility])[address] Hematocrit (Bld) [Volume fraction] 45.9 % Normal 40.0-52.0 [facility] Comment on above: Performed By: #### L AB294 ####Volunteer Services Assistant: DIGNA MORALES ([id number])[facility]AIA[facility] ([facility])[address] Hemoglobin (Bld) [Mass/Vol] 15.2 g/dL Normal 13.0-18.0 [facility] Comment on above: Performed By: #### L AB294 ####Volunteer Services Assistant: DIGNA MORALES ([phone])[facility]ITAL[facility] ([facility])[address] MCH (RBC) [Entitic mass] 28.7 pg Normal 26.0-34.0 [facility] Comment on above: Performed By: #### L AB294 ####Volunteer Services Assistant: DIGNA MORALES ([id number])[facility]ITAL[facility] PILLAIAaron ([facility])[address] MCHC 33.1 % Normal 30.5-36.0 [facility] Comment on above: Performed By: #### L AB294 ####Volunteer Services Assistant: DIGNA MORALES ([id number])[facility] ([facility])[address] MCV (RBC) [Entitic vol] 86.8 fL Normal 77.0-99.0 [facility] Comment on above: Performed By: #### L AB294 ####Volunteer Services Assistant: DIGNA MOARLES ([id number])[facility] ([facility])[address] Platelet mean volume (Bld) [Entitic vol] 11.0 fL Normal 9.0-12.7 [facility] Comment on above: Performed By: #### L AB294 ####Volunteer Services Assistant: DIGNA MORALES ([phone])[facility] AGU[facility]A ([facility])[address] Platelets (Bld) [#/Vol] 205 10*3/uL Normal 140-440 [facility] Comment on above: Performed By: #### L AB294 ####Volunteer Services Assistant: DIGNA MORALES ([id number])[facility] R[facility] ([facility])[address] RBC (Bld) [#/Vol] 5.29 10*6/uL Normal 4.40-5.90 [facility] Comment on above: Performed By: #### L AB294 ####Volunteer Services Assistant: DIGNA MORALES ([phone])[facility] ([facility] [place] [address] WBC (Bld) [#/Vol] 4.0 10*3/uL Normal 3.6-10.7 [facility] Comment on above: Performed By: #### L AB294 ####Volunteer Services Assistant: DIGNA MORALES ([id number])[facility] ([facility] [place] [address] CBC panel Auto (Bld)on 02-15 Erythrocyte distribution width (RBC) [Ratio] 19.1 % High 11.5 - 15.0 % [facility] Hematocrit (Bld) [Volume fraction] 45.9 % 40.0 - 52.0 % [facility] Hemoglobin (Bld) [Mass/Vol] 15.2 g/dL 13.0 - 18.0 g/dL [facility] Interpretation and review of laboratory results Abnormal [facility] MCH (RBC) [Entitic mass] 28.7 pg 26. 0 - 34.0 pg [facility] MCHC (RBC) [Mass/Vol] 33.1 % 30.5 - 36.0 % [facility] MCV (RBC) [Entitic vol] 86.8 fL 77.0 - 99.0 fL [facility] Platelet mean volume (Bld) [Entitic vol] 11 fL 9.0 - 12.7 fL [facility] Platelets (Bld) [#/Vol] 205 10*3/uL 140 - 440 10*3/uL [facility] RBC (Bld) [#/Vol] 5.29 10*6/uL 4.40 - 5.9 0 10*6/uL [facility] WBC (Bld) [#/Vol] 4 10*3/uL 3.6 - 10.7 10*3/uL [facility] Laboratory - Chemistry and C hemistry - challengeon 02-15-2025 Glucose [Mass/Vol] 118 mg/dL High 70 - 100 mg/dL [facility] Glucose [Mass/Vol] 89 mg/dL 70 - 100 mg/dL [facility] Glucose [Mass/Vol] 69 mg/dL Low 70 - 100 mg/dL [facility] No Panel Informationon 02-15 Interpretation and review of laboratory results Abnormal [facility] Performed by: [facility] [address] [place] [id number] CLIA ID: [id number] [facility] Interpretation and review of laboratory results Normal [facility] Performed by: [facility] [address] [place] [id number] CLIA ID: [id number] [facility] Interpretation and review of laboratory results Abnormal [facility] Performed by: [facility], [address] [place] [id number] CLIA ID: [id number] [facility] Nursing Noteon 02-15-2025 Nursing Note Pt ok to discharge home per , juan alberto wnrussell. Pt understood discharge instructions. Son to transport pt home. IV removed prior to pt leaving hospital. Pt received meds to bed. [facility] [id number] 02-14-2025 [id number] SRIRAM met with pt at [facility] to complete the 30 day Readmission questionnaire. SW asked for pt's consent and pt agreed. Pt was cooperative and answered all questions. SW will email questionnaire at the end of the week to [email or web address] [facility] BASIC METABOLIC PANELon 01-19 Anion gap [Moles/Vol] 13 mmol/L Normal 3-[address] [facility] Comment on above: Performed By: #### L AB15 ####Volunteer Services Assistant: DIGNA MORALES ([phone])[facility]ITAL[facility] [place] (SBHLAB)[address] Calcium [Mass/Vol] 8.9 mg/dL Normal 8.8-10.0 [facility] Comment on above: Performed By: #### L AB15 ####Volunteer Services Assistant: DIGNA MORALES ([phone])[facility] [place] (SBHLAB)[address] Chloride [Moles/Vol] 107 mmol/L Normal 98-107 [facility] Comment on above: Performed By: #### L AB15 ####Volunteer Services Assistant: DIGNA MORALES ([phone])[facility] [place] (SBHLAB)[address] CO2 [Moles/Vol] 21 mmol/L Low 23-31 [facility] Comment on above: Performed By: #### L AB15 ####Volunteer Services Assistant: DIGNA MORALES ([phone])[facility] [place] (SBHLAB)[address] Creatinine [Mass/Vol] 1.77 mg/dL High 0.72-1.[address] [facility] Comment on above: Performed By: #### L AB15 ####Volunteer Services Assistant: DIGNA MORALES ([phone])[facility] [place] (SBHLAB)[address] [place] [address] [place] GLOMERULAR FILTRATION RATE ML/MIN/1.73 SQ M.PREDICTED 37.2 mL/min/1.73m*2 Low >60.0 [facility] Comment on above: Result Comment: Calc ulation based on the Chronic Kidney Disease Epidemiology Collaboration (CKD-EPI) equation refit without adjustment for race Performed By: #### L AB15 ####Volunteer Services Assistant: DIGNA MORALES ([phone])[facility] [place] (SBHLAB)[address] [place] [address] [place] Glucose [Mass/Vol] 96 mg/dL Normal 82-115 [facility] Comment on above: Performed By: #### L AB15 ####Volunteer Services Assistant: DIGNA TAPIACER ([phone])[facility]A [facility] (SBHLAB)[address] Potassium [Moles/Vol] 3.5 mmol/L Normal 3.5-5.[address] [facility] Comment on above: Result Comment: [facility] potassium values may be up to 0.5 mmol/L lower than serum values. Performed By: #### L AB15 ####Volunteer Services Assistant: DIGNA MORALES ([phone])[facility]A [facility]BCARRI[facility]ITALN (SBHLAB)[address] Sodium [Moles/Vol] 141 mmol/L Normal 136-145 [facility] Comment on above: Performed By: #### L AB15 ####Volunteer Services Assistant: DIGNA MORALES ([phone])[facility] (SBHLAB)[address] [place] [address] Urea nitrogen [Mass/Vol] 22 mg/dL Normal 9-23 [facility] Comment on above: Performed By: #### L AB15 ####Volunteer Services Assistant: DIGNA MORALES ([phone])[facility] (SBHLAB)[address] [place] [address] Basic metabolic 1998 panelon 02-14-2025 Anion gap [Moles/Vol] 13 mmol/L 3 - 13 mmol/L [facility] Calcium [Mass/Vol] 8.9 mg/dL 8.8 - 10. 0 mg/dL [facility] Chloride [Moles/Vol] 107 mmol/L 98 - 10 7 mmol/L [facility] CO2 [Moles/Vol] 21 mmol/L Low 23 - 31 mmol/L [facility] Creatinine [Mass/Vol] 1.77 mg/dL High 0.72 - 1.25 mg/dL [facility] GFR/1.73 sq M.predicted (S/P/Bld) [Vol rate/Area] 37.2 mL/min Low - PINF [facility] Comment on above: Calculation based on the Chronic Kidney Disease Epidemiology Collaboration (CKD-EPI) equation refit without adjustment for race Glucose [Mass/Vol] 96 mg/dL 82 - 115 mg/dL [facility] Interpretation and review of laboratory results Abnormal [facility] Potassium [Moles/Vol] 3.5 mmol/L 3.5 - 5.1 mmol/L [facility] Comment on above: Plasma potassium erika ues may be up to 0.5 mmol/L lower than serum values. Sodium [Moles/Vol] 141 mmol/L 136 - 145 mmol/L [facility] Urea nitrogen [Mass/Vol] 22 mg/dL 9 - 23 mg/d L [facility] CBC (HEMOGRAM)on 02-14-2025 Erythrocyte distribution width (RBC) [Ratio] 19.2 % High 11.5-15.0 [facility] Comment on above: Performed By: #### L [id number] ####Volunteer Services Assistant: DIGNA MORALES ([phone])[facility] [place] [address] Hematocrit (Bld) [Volume fraction] 46.2 % Normal 40.0-52.0 [facility] Comment on above: Performed By: #### L AB294 ####Volunteer Services Assistant: DIGNA MORALES ([phone])[facility] ([facility])[address] [place] [address] Hemoglobin (Bld) [Mass/Vol] 15.3 g/dL Normal 13.0-18.0 [facility] Comment on above: Performed By: #### L [id number] ####Volunteer Services Assistant: DIGNA MORALES ([phone])[facility] [place] [address] MCH (RBC) [Entitic mass] 28.5 pg Normal 26.0-34.0 [facility] Comment on above: Performed By: #### L AB294 ####Volunteer Services Assistant: DIGNA MORALES ([phone])[facility] [place] [address] MCHC 33.1 % Normal 30.5-36.0 [facility] Comment on above: Performed By: #### L AB294 ####Volunteer Services Assistant: DIGNA TAPIACER ([phone])[facility] (SBHLAB)[address] MCV (RBC) [Entitic vol] 86.2 fL Normal 77.0-99.0 S [facility] Comment on above: Performed By: #### L AB294 ####Volunteer Services Assistant: DIGNA CARMEN ([phone])[facility]ITALCarl[facility] (SBHLAB)[address] Platelet mean volume (Bld) [Entitic vol] 10.9 fL Normal 9.0-12.7 [facility] Comment on above: Performed By: #### L AB294 ####Volunteer Services Assistant: DIGNA ARANAILYA ([phone])[facility]ITALCarlos [facility]ISCARRI[facility] HOSPITALN (SBHLAB)[address] Platelets (Bld) [#/Vol] 209 10*3/uL Normal 140-440 [facility] Comment on above: Performed By: #### L AB294 ####Volunteer Services Assistant: DIGNA ROJASREX ([phone])[facility] (SBHLAB)[address] RBC (Bld) [#/Vol] 5.36 10*6/uL Normal 4.40-5.90 [facility] Comment on above: Performed By: #### L AB294 ####Volunteer Services Assistant: DIGNA MORALES ([phone])[facility]ITALCarl[facility] (SBHLAB)[address] WBC (Bld) [#/Vol] 4.5 10*3/uL Normal 3.6-10.7 [facility] Comment on above: Performed By: #### L AB294 ####Volunteer Services Assistant: DIGNA MORALES ([phone])[facility] (SB[facility]AB)[address] CBC panel Auto (Bld)on 02-14 Erythrocyte distribution width (RBC) [Ratio] 19.2 % High 11.5 - 15.0 % [facility] Hematocrit (Bld) [Volume fraction] 46.2 % 40.0 - 52.0 % [facility] Hemoglobin (Bld) [Mass/Vol] 15.3 g/dL 13.0 - 18.0 g/dL [facility] Interpretation and review of laboratory results Abnormal [facility] MCH (RBC) [Entitic mass] 28.5 pg 26. 0 - 34.0 pg [facility] MCHC (RBC) [Mass/Vol] 33.1 % 30.5 - 36.0 % [facility] MCV (RBC) [Entitic vol] 86.2 fL 77.0 - 99.0 fL [facility] Platelet mean volume (Bld) [Entitic vol] 10.9 fL 9.0 - 12.7 fL [facility] Platelets (Bld) [#/Vol] 209 10*3/uL 140 - 440 10*3/uL [facility] RBC (Bld) [#/Vol] 5.36 10*6/uL 4.40 - 5.9 0 10*6/uL [facility] WBC (Bld) [#/Vol] 4.5 10*3/uL 3.6 - 10.7 10*3/uL [facility] Laboratory - Chemistry and C hemistry - challengeon 02-14-2025 Glucose [Mass/Vol] 103 mg/dL High 70 - 100 mg/dL [facility] Glucose [Mass/Vol] 85 mg/dL 70 - 100 mg/dL [facility] Glucose [Mass/Vol] 94 mg/dL 70 - 100 mg/dL [facility] Glucose [Mass/Vol] 83 mg/dL 70 - 100 mg/dL [facility] No Panel Informationon 02-14 Interpretation and review of laboratory results Abnormal [facility] Performed by: Jacques Lin [facility], [facility] [address] CLIA ID: [id number] [facility] Interpretation and review of laboratory results Normal [facility] Performed by: Jacques Lin [facility], [facility] [address] CLIA ID: [id number] [facility] Interpretation and review of laboratory results Normal [facility] Performed by: Jacques Lin [facility], [facility] [address] CLIA ID: [id number] [facility] Interpretation and review of laboratory results Normal [facility] Performed by: [facility] [place]Daw[place], [address] [address] CLIA ID: [id number] [facility] Nursing Noteon 02-14-2025 Nursing Note Wound Care consulted for Pressure Injury Prevention. Pt's Simon score= 18 on 02/14 Pt's pressure points assessed. Pt turned independently in the bed for posterior assessment. Pt's Heels, Buttocks/coccyx, Back, Elbows, Occiput and ears all intact. [place] and blanchable tissues noted to coccyx. Instructed pt on pressure injury prevention and importance of turning/postioning every 2hrs while in bed and every 15 min while sitting in chair. Verbalized understanding. Prevention Measures in place, including: Pillows/wedges, Heels elevated off bed on pillows, Sacral foam (in place, intact), Zinc/Moisture Barrier ointment, Waffle chair cushion (obtain for pt once getting out of bed to chair). Skin Care precaution order set in place. Dietitian consult in place. PT consult N/A, activity/mobility subscores of 3. D/W nursing staff. Will continue to follow pt. Please secure chat for any questions or concerns. Lavonne Grace RN Normal [facility] BASIC METABOLIC PANELon 01-19 Anion gap [Moles/Vol] 14 mmol/L High 3-[address] [facility] Comment on above: Performed By: #### L AB15 ####Volunteer Services Assistant: DIGNA MORALES ([phone])[facility] (SBHLAB)[address] Calcium [Mass/Vol] 8.8 mg/dL Normal 8.8-10.0 [facility] Comment on above: Performed By: #### L AB15 ####Volunteer Services Assistant: DIGNA MORALES ([phone])[facility] (SBHLAB)[address] Chloride [Moles/Vol] 107 mmol/L Normal 98-107 [facility] Comment on above: Performed By: #### L AB15 ####Volunteer Services Assistant: DIGNA MORALES ([phone])[facility] [place] (SBHLAB)[address] CO2 [Moles/Vol] 21 mmol/L Low 23-31 [facility] Comment on above: Performed By: #### L AB15 ####Volunteer Services Assistant: DIGNA MORALES ([phone])[facility]A BARBCARRI[facility]OSPITALN (SBHLAB)[address] Creatinine [Mass/Vol] 1.85 mg/dL High 0.72-1.[address] [facility] Comment on above: Performed By: #### L AB15 ####Volunteer Services Assistant: DIGNA MORALES ([phone])[facility]A BARBCARRI[facility]OSPITALN (SBHLAB)[address] GLOMERULAR FILTRATION RATE ML/MIN/1.73 SQ M.PREDICTED 35.3 mL/min/1.73m*2 Low >60.0 [facility] Comment on above: Result Comment: Calc ulation based on the Chronic Kidney Disease Epidemiology Collaboration (CKD-EPI) equation refit without adjustment for race Performed By: #### L AB15 ####Volunteer Services Assistant: DIGNA MORALES ([phone])[facility]BCAR[facility]OSPITALN (SBHLAB)[address] Glucose [Mass/Vol] 84 mg/dL Normal 82-115 [facility] Comment on above: Performed By: #### L AB15 ####Volunteer Services Assistant: DIGNA MORALES ([phone])[facility]BCAR[facility]OSPITALN (SBHLAB)[address] Potassium [Moles/Vol] 3.8 mmol/L Normal 3.5-5.[address] [facility] Comment on above: Result Comment: [facility] potassium values may be up to 0.5 mmol/L lower than serum values. Performed By: #### L AB15 ####Volunteer Services Assistant: DIGNA MORALES ([phone])[facility]A [facility] [place] (SBHLAB)[address] Sodium [Moles/Vol] 142 mmol/L Normal 136-145 [facility] Comment on above: Performed By: #### L AB15 ####Volunteer Services Assistant: DIGNAVIRI ARANANicholasREX ([phone])[facility] (SBHLAB)[address] Urea nitrogen [Mass/Vol] 21 mg/dL Normal 9-23 [facility] Comment on above: Performed By: #### L AB15 ####Volunteer Services Assistant: DIGNA CARMEN ([phone])[facility] (SBHLAB)[address] Basic metabolic 1998 panelOr dered By: Shaun Topete on 02-13-2025 Anion gap [Moles/Vol] 14 mmol/L High 3 - 13 mmol/L [facility] Calcium [Mass/Vol] 8.8 mg/dL 8.8 - 10. 0 mg/dL [facility] Chloride [Moles/Vol] 107 mmol/L 98 - 10 7 mmol/L [facility] CO2 [Moles/Vol] 21 mmol/L Low 23 - 31 mmol/L [facility] Creatinine [Mass/Vol] 1.85 mg/dL High 0.72 - 1.25 mg/dL [facility] GFR/1.73 sq M.predicted (S/P/Bld) [Vol rate/Area] 35.3 mL/min Low - PINF [facility] Comment on above: Calculation based on the Chronic Kidney Disease Epidemiology Collaboration (CKD-EPI) equation refit without adjustment for race Glucose [Mass/Vol] 84 mg/dL 82 - 115 mg/dL [facility] Interpretation and review of laboratory results Abnormal [facility] Potassium [Moles/Vol] 3.8 mmol/L 3.5 - 5.1 mmol/L [facility] Comment on above: Plasma potassium erika ues may be up to 0.5 mmol/L lower than serum values. Sodium [Moles/Vol] 142 mmol/L 136 - 145 mmol/L [facility] Urea nitrogen [Mass/Vol] 21 mg/dL 9 - 23 mg/d L [facility] CBC (HEMOGRAM)on 02-13-2025 Erythrocyte distribution width (RBC) [Ratio] 19.2 % High 11.5-15.0 [facility] Comment on above: Performed By: #### L [id number] ####Volunteer Services Assistant: DIGNA MORALES ([phone])[facility]OS[facility]ITALCarlos DAVISCARRIE T[facility]LEY HOSPITALAaron ([facility])[address] [place] [address] Hematocrit (Bld) [Volume fraction] 48.4 % Normal 40.0-52.0 [facility] Comment on above: Performed By: #### L AB294 ####Volunteer Services Assistant: DIGNA MORALES ([phone])[facility] ([facility])[address] [place] [address] Hemoglobin (Bld) [Mass/Vol] 15.6 g/dL Normal 13.0-18.0 [facility] Comment on above: Performed By: #### L AB294 ####Volunteer Services Assistant: DIGNA ROJASREX ([phone])[facility] ([facility])[address] [place] [address] MCH (RBC) [Entitic mass] 28.3 pg Normal 26.0-34.0 [facility] Comment on above: Performed By: #### L [id number] ####Volunteer Services Assistant: DIGNA MORALES ([phone])[facility]ITALCarl[facility] [place] ([facility])[address] [place] [address] MCHC 32.2 % Normal 30.5-36.0 [facility] Comment on above: Performed By: #### L AB294 ####Volunteer Services Assistant: DIGNA MORALES ([phone])[facility] ([facility])[address] [place] [address] MCV (RBC) [Entitic vol] 87.7 fL Normal 77.0-99.0 S [facility] Comment on above: Performed By: #### L AB294 ####Volunteer Services Assistant: DIGNA MORALES ([phone])[facility] ([facility])[address] [place] [address] Platelet mean volume (Bld) [Entitic vol] 10.8 fL Normal 9.0-12.7 [facility] Comment on above: Performed By: #### L AB294 ####Volunteer Services Assistant: DIGNA MORALES ([phone])[facility]ITALCarlos [facility]CAR[facility] HOSPITALAaron (SBHLAB)[address] Platelets (Bld) [#/Vol] 224 10*3/uL Normal 140-440 [facility] Comment on above: Performed By: #### L AB294 ####Volunteer Services Assistant: DIGNA MORALES ([phone])[facility]ITALCarlos [facility] [place] (SBHLAB)[address] RBC (Bld) [#/Vol] 5.52 10*6/uL Normal 4.40-5.90 [facility] Comment on above: Performed By: #### L AB294 ####Volunteer Services Assistant: DIGNA MORALES ([phone])[facility] (SBHLAB)[address] WBC (Bld) [#/Vol] 4.4 10*3/uL Normal 3.6-10.7 [facility] Comment on above: Performed By: #### L [id number] ####Volunteer Services Assistant: DIGNA MORALES ([phone])[facility] ([facility])[address] CBC panel Auto (Bld)on 02-13 Erythrocyte distribution width (RBC) [Ratio] 19.2 % High 11.5 - 15.0 % [facility] Hematocrit (Bld) [Volume fraction] 48.4 % 40.0 - 52.0 % [facility] Hemoglobin (Bld) [Mass/Vol] 15.6 g/dL 13.0 - 18.0 g/dL [facility] Interpretation and review of laboratory results Abnormal [facility] MCH (RBC) [Entitic mass] 28.3 pg 26. 0 - 34.0 pg [facility] MCHC (RBC) [Mass/Vol] 32.2 % 30.5 - 36.0 % [facility] MCV (RBC) [Entitic vol] 87.7 fL 77.0 - 99.0 fL [facility] Platelet mean volume (Bld) [Entitic vol] 10.8 fL 9.0 - 12.7 fL [facility] Platelets (Bld) [#/Vol] 224 10*3/uL 140 - 440 10*3/uL [facility] RBC (Bld) [#/Vol] 5.52 10*6/uL 4.40 - 5.9 0 10*6/uL [facility] WBC (Bld) [#/Vol] 4.4 10*3/uL 3.6 - 10.7 10*3/uL [facility] Laboratory - Chemistry and C hemistry - challengeon 02-13-2025 Glucose [Mass/Vol] 100 mg/dL 70 - 100 mg/dL [facility] Glucose [Mass/Vol] 112 mg/dL High 70 - 100 mg/dL [facility] Glucose [Mass/Vol] 133 mg/dL High 70 - 100 mg/dL [facility] Glucose [Mass/Vol] 85 mg/dL 70 - 100 mg/dL [facility] No Panel Informationon 02-13 Interpretation and review of laboratory results Normal [facility] Performed by: Tutu Romeo [address] [place] [address] CLIA ID: [id number] [facility] Interpretation and review of laboratory results Abnormal [facility] Performed by: Tutu Romeo [address] [place] [address] CLIA ID: [id number] [facility] Interpretation and review of laboratory results Abnormal [facility] Performed by: Tutu Romeo [address] [place] [address] CLIA ID: [id number] [facility] Interpretation and review of laboratory results Normal [facility] Performed by: Tutu Romeo [address] [place] [address] CLIA ID: [id number] [facility] BASIC METABOLIC PANELon 01-19 Anion gap [Moles/Vol] 14 mmol/L High 3-[address] [facility] Comment on above: Performed By: #### L AB15, [id number] ####Volunteer Services Assistant: DIGNA MORALES ([phone])[facility] (SBHLAB)[address] [place] [address] Calcium [Mass/Vol] 8.4 mg/dL Low 8.8-10.0 [facility] Comment on above: Performed By: #### L AB15, [id number] ####Volunteer Services Assistant: DIGNA MORALES ([phone])[facility] (HLAB)[address] Chloride [Moles/Vol] 106 mmol/L Normal 98-107 [facility] Comment on above: Performed By: #### L AB15, [id number] ####Volunteer Services Assistant: DIGNA MORALES ([phone])[facility] ([facility])[address] CO2 [Moles/Vol] 21 mmol/L Low 23-31 [facility] Comment on above: Performed By: #### L AB15, [id number] ####Volunteer Services Assistant: DIGNA MORALES ([phone])[facility] ([facility])[address] Creatinine [Mass/Vol] 1.73 mg/dL High 0.72-1.[address] [facility] Comment on above: Performed By: #### L AB15, [id number] ####Volunteer Services Assistant: DIGNA MORALES ([phone])[facility] ([facility])[address] [place] [address] [place] GLOMERULAR FILTRATION RATE ML/MIN/1.73 SQ M.PREDICTED 38.2 mL/min/1.73m*2 Low >60.0 [facility] Comment on above: Result Comment: Calc ulation based on the Chronic Kidney Disease Epidemiology Collaboration (CKD-EPI) equation refit without adjustment for race Performed By: #### L AB15, [id number] ####Volunteer Services Assistant: DIGNA MORALES ([phone])[facility] ([facility] [place] [address] [place] Glucose [Mass/Vol] 82 mg/dL Normal 82-115 [facility] Comment on above: Performed By: #### L AB15, [id number] ####Volunteer Services Assistant: DIGNA MORALES ([phone])[facility] [place] (SBHLAB)[address] Potassium [Moles/Vol] 2.8 mmol/L Low 3.5-5.[address] [facility] Comment on above: Result Comment: [facility] potassium values may be up to 0.5 mmol/L lower than serum values. Performed By: #### L AB15, [id number] ####Volunteer Services Assistant: DIGNA MORALES ([phone])[facility]OSPITALCarlos [facility]ITALN (SBHLAB)[address] Sodium [Moles/Vol] 141 mmol/L Normal 136-145 [facility] Comment on above: Performed By: #### L AB15, [id number] ####Volunteer Services Assistant: DIGNA MORALES ([phone])[facility]ITALCarl[facility] (SBHLAB)[address] Urea nitrogen [Mass/Vol] 22 mg/dL Normal 9-23 [facility] Comment on above: Performed By: #### L AB15, [id number] ####Volunteer Services Assistant: DIGNA MORALES ([phone])[facility] (SBHLAB)[address] Basic metabolic 1998 panelOr dered By: Jamila Acosta on 02-12-2025 Anion gap [Moles/Vol] 14 mmol/L High 3 - 13 mmol/L [facility] Calcium [Mass/Vol] 8.4 mg/dL Low 8.8 - 10. 0 mg/dL [facility] Chloride [Moles/Vol] 106 mmol/L 98 - 10 7 mmol/L [facility] CO2 [Moles/Vol] 21 mmol/L Low 23 - 31 mmol/L [facility] Creatinine [Mass/Vol] 1.73 mg/dL High 0.72 - 1.25 mg/dL [facility] GFR/1.73 sq M.predicted (S/P/Bld) [Vol rate/Area] 38.2 mL/min Low - PINF [facility] Comment on above: Calculation based on the Chronic Kidney Disease Epidemiology Collaboration (CKD-EPI) equation refit without adjustment for race Glucose [Mass/Vol] 82 mg/dL 82 - 115 mg/dL [facility] Interpretation and review of laboratory results Abnormal [facility] Potassium [Moles/Vol] 2.8 mmol/L Low 3.5 - 5.1 mmol/L [facility] Comment on above: Plasma potassium erika ues may be up to 0.5 mmol/L lower than serum values. Sodium [Moles/Vol] 141 mmol/L 136 - 145 mmol/L [facility] Urea nitrogen [Mass/Vol] 22 mg/dL 9 - 23 mg/d L [facility] CBC (HEMOGRAM)on 02-12-2025 Erythrocyte distribution width (RBC) [Ratio] 18.5 % High 11.5-15.0 [facility] Comment on above: Performed By: #### L [id number] ####Volunteer Services Assistant: DIGNA MORALES ([phone])[facility] ([facility] [place] [address] Hematocrit (Bld) [Volume fraction] 44.7 % Normal 40.0-52.0 [facility] Comment on above: Performed By: #### L AB294 ####Volunteer Services Assistant: DIGNA MORALES ([phone])[facility] ([facility] [place] [address] Hemoglobin (Bld) [Mass/Vol] 15.1 g/dL Normal 13.0-18.0 [facility] Comment on above: Performed By: #### L [id number] ####Volunteer Services Assistant: DIGNA MORALES ([phone])[facility] ([facility])[address] [place] [address] [facility] (RBC) [Entitic mass] 29.3 pg Normal 26.0-34.0 [facility] Comment on above: Performed By: #### L [id number] ####Volunteer Services Assistant: DIGNA MORALES ([phone])[facility] (SB[facility])[address] [place] [address] MCHC 33.8 % Normal 30.5-36.0 [facility] Comment on above: Performed By: #### L [id number] ####Volunteer Services Assistant: DIGNA ROJASERX ([phone])[facility] (SBHLAB)[address] MCV (RBC) [Entitic vol] 86.6 fL Normal 77.0-99.0 S [facility] Comment on above: Performed By: #### L AB294 ####Volunteer Services Assistant: DIGNA CARMEN ([phone])[facility] (SBHLAB)[address] Platelet mean volume (Bld) [Entitic vol] 10.6 fL Normal 9.0-12.7 [facility] Comment on above: Performed By: #### L [id number] ####Volunteer Services Assistant: DIGNA CARMEN ([phone])[facility] (SBHLAB)[address] Platelets (Bld) [#/Vol] 205 10*3/uL Normal 140-440 [facility] Comment on above: Performed By: #### L [id number] ####Volunteer Services Assistant: DIGNA ROJASREX ([phone])[facility] (SBHLAB)[address] RBC (Bld) [#/Vol] 5.16 10*6/uL Normal 4.40-5.90 [facility] Comment on above: Performed By: #### L AB294 ####Volunteer Services Assistant: DIGNA ROJASREX ([phone])[facility]ITAL[facility] (SBHLAB)[address] WBC (Bld) [#/Vol] 3.7 10*3/uL Normal 3.6-10.7 [facility] Comment on above: Performed By: #### L [id number] ####Volunteer Services Assistant: DIGNA ROJASREX ([phone])[facility] (SBHLAB)[address] CBC panel Auto (Bld)on 02-12 Erythrocyte distribution width (RBC) [Ratio] 18.5 % High 11.5 - 15.0 % [facility] Hematocrit (Bld) [Volume fraction] 44.7 % 40.0 - 52.0 % [facility] Hemoglobin (Bld) [Mass/Vol] 15.1 g/dL 13.0 - 18.0 g/dL [facility] Interpretation and review of laboratory results Abnormal [facility] MCH (RBC) [Entitic mass] 29.3 pg 26. 0 - 34.0 pg [facility] MCHC (RBC) [Mass/Vol] 33.8 % 30.5 - 36.0 % [facility] MCV (RBC) [Entitic vol] 86.6 fL 77.0 - 99.0 fL [facility] Platelet mean volume (Bld) [Entitic vol] 10.6 fL 9.0 - 12.7 fL [facility] Platelets (Bld) [#/Vol] 205 10*3/uL 140 - 440 10*3/uL [facility] RBC (Bld) [#/Vol] 5.16 10*6/uL 4.40 - 5.9 0 10*6/uL [facility] WBC (Bld) [#/Vol] 3.7 10*3/uL 3.6 - 10.7 10*3/uL [facility] Laboratory - Chemistry and C hemistry - challengeon 02-12-2025 Glucose [Mass/Vol] 155 mg/dL High 70 - 100 mg/dL [facility] Glucose [Mass/Vol] 135 mg/dL High 70 - 100 mg/dL [facility] Glucose [Mass/Vol] 126 mg/dL High 70 - 100 mg/dL [facility] Glucose [Mass/Vol] 92 mg/dL 70 - 100 mg/dL [facility] Glucose [Mass/Vol] 60 mg/dL Low 70 - 100 mg/dL [facility] Procalcitonin [Mass/Vol] 0.08 ng/mL High LISANDRO F - 0.07 ng/mL [facility] No Panel Informationon 02-12 Interpretation and review of laboratory results Abnormal [facility] Performed by: Tutu Romeo [address] [place] [id number] CLIA ID: [id number] [facility] Interpretation and review of laboratory results Abnormal [facility] Performed by: Jacques Lin [facility] [place] [address] CLIA ID: [id number] [facility] Interpretation and review of laboratory results Abnormal [facility] Performed by: Nelliecarlos [place], [address] [place] [id number] CLIA ID: [id number] [facility] Interpretation and review of laboratory results Normal [facility] Performed by: Nelliecarlos Romeo, [address] [place] [address], [facility] [address] CLIA ID: [id number] [facility] Interpretation and review of laboratory results Abnormal [facility] Performed by: Nelliecarlos Romeo, [address] [place] [address], [facility] [address] CLIA ID: [id number] [facility] PROCALCITONIN TESTon 025 PROCALCITONIN 0.08 ng/mL High <0.07 [facility] h System [facility] Comment on above: Result Comment: MIO Klein COMMENTS: PCT <0.50 = Low risk of severe sepsis and/or septic shock. PCT >2.00 = High risk of severe sepsis and/or septic shock. Performed By: #### L [id number], [id number] ####Volunteer Services Assistant: DIGNA MORALES ([phone])[facility]ITALCarl[facility] [place] (SBHLAB)[address] [place] [address] Procalcitonin [Mass/Vol]on 0 02-12-2025 Interpretation and review of laboratory results Abnormal [facility] PCT <0.50 = Low risk of severe sepsis and/or septic shock. PCT >2.00 = High risk of severe sepsis and/or septic shock. [facility] Progress Noteon 02-12-2025 Progress Note Nutrition Assessment Type and Reason for Visit: Initial, Wound Nutrition Recommendations/Plan : Per MNT protocol, liberalized diet to: Regular; No Added Salt (3-4 gm); 5 carb choices (75 gm/meal) diet Please assist and encourage patient to participate in room service and order well balanced meals Please document all oral intake in EMR for most accurate nutrient intake assessment As able, please obtain weekly standing scale weights for most accurate anthropometric data and calculation of macronutrient and fluid needs RDN to continue to monitor weekly: fluid accumulation, weight, skin integrity, trends in lab values, tolerance of PO, clinical status, discharge planning. Malnutrition Assessment: Malnutrition Status: At risk for malnutrition (Comment) (monitro intake) Context: Chronic Illness Findings of the 6 clinical characteristics of malnutrition: Energy Intake: No significant decrease in energy intake (eats two meals daily at home) Weight Loss: Unable to assess (+CHF and fluid shifts) Body Fat Loss: Mild body fat loss (observed) Buccal region, Orbital Muscle Mass Loss: Unable to assess Fluid Accumulation: Severe Extremities Bag Builder Strength: Not Performed Nutrition Assessment: 84 year old man with PMHx: DMII, CKD stage IIIb, CHF(EF rate ~12% 01/30/25), DVT, bladder cancer, HTN, HLD, PUD. Recent admit 01/28-02/01/25 to [facility] with volume overload and CHF Exacerbation. 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 Treated with IV Lasix and transitioned to 40 mG Torsemide prior to discharge. On day of discharge with weight of 186.6#, and he was discharged home in improved condition. He currently presents to [facility] with worsening swelling, redness, and pain in bilateral lower extremities- presumed cellulitis. Noted weight of 182.4# on evening of 02/09/25. Significant labs on admit: Gap(17), Creatinine(1.94), AST(39), bilirubin(1.8),BNP(> 57246). Negative venous duplex imaging. ID consulted and following with plans to transition form IV cefetpime to PO antibiotics. Pleasant and interactive, resting in bed at time of assessment with bed scale weight of 80.7 kg or 177.9# obtained. Noted patient ate ~75% breakfast tray (observed by this RDN). Cites appetite is ?okay?, +diarrhea and early satiety. 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 While he has used ONS in the past- declined a this time due to loose stooling. Requested A brownie and milk, liberlized diet. Estimated Daily Nutrient Needs: Energy Requirements Based On: Kcal/kg Weight Used for Energy Requirements: [place] Weight for Energy Calculation (kg): 67 kg Total Energy Requirements (kcals/day): 1183-2975 (25-30 kcal/kg IBW) Weight Used for Protein Requirements: [place] Weight in Kg Used for Protein Requirements: 67 kg Estimated Total Protein (g/day): 67-101 (1.0-1.5 g protein/kg IBW) Estimated Daily Total Fluid (ml/day): per MD Nutrition Related Findings: -I/O balance. +3 BLE edema noted. Simon score=18 +cellulitis. Meds reviewed: +insulin, Synthroid. Nephrocaps, maxipime, D3 and B12. Labs: BGL(67->16->131->100 ->111), K+(2.8), creatinine(1.73), Gap(14). Wound Type: (BLE cellulitis) Current Nutrition Therapies: Adult diet Regular; No Added Salt (3-4 gm); 5 carb choices (75 gm/meal) Current Oral Intake Average Meal Intake: 51-75%, 76-100% Average Supplements Intake: None Ordered, Refusing to take Anthropometric Measures: Height: 170.2 cm (5' 7) Current Body Weight: 80.7 kg (177 lb 14.6 oz) Weight Source: Bed Scale Admission Body Weight: 82.7 kg (182 lb 6.4 oz) Usual Body Weight: 84.6 kg (186 lb 9.6 oz) (Per EMR--> 179# 01/09/24; 180# 09/22/24; 194.6# 01/26/25; 186.6# 02/01/25) % Weight Change (Calculated): -4.7 [place] Body Weight (lbs) (Calculated): 148 lbs [place] Body Weight (Kg) (Calculated): 67 kg % [place] Body Weight (Calculated): 120.2 % BMI (kg/m2) (Calculated): 27.9 Weight Adjustment For: No Adjustment BMI Categories: Overweight (BMI 25.0-29.9) Nutrition Diagnosis: Altered nutrition-related lab values related to cardiac dysfunction as evidenced by localized or generalized fluid accumulation, lab values Nutrition Interventions: Nutrition Education/Counseling : Education not indicated Coordination of Nutrition Care: Continue to monitor while inpatient Plan of Care discussed with: patient and [employer]MER Goals: Previous Goal Met: Progressing toward Goal(s) Goals: PO intake 50% or greater Nutrition Monitoring and Evaluation: Behavioral-Environme ntal Outcomes: None Identified Food/Nutrient Intake Outcomes: Food and Nutrient Intake Physical Signs/Symptoms Outcomes: Biochemical Data, Chewing or Swallowing, Diarrhea, Nutrition Focused Physical Findings, Skin, Weight, Meal Time Behavior, Hemodynamic Status, Fluid Status or Edema Discharge Planning: Continue current diet Pari Morales, ADRIAN, LDN, Contact: *[phone] Normal [facility] [id number] 02-11-2025 [id number] Patient is currently active with [employer] [facility]. The patients current certification period will on 04/04/2025. The patient is currently receiving SN, PT services through the agency. [employer] to continue to follow. [facility] Laboratory - Chemistry and C hemistry - challengeon 02-11-2025 Glucose [Mass/Vol] 111 mg/dL High 70 - 100 mg/dL [facility] Glucose [Mass/Vol] 100 mg/dL 70 - 100 mg/dL [facility] Glucose [Mass/Vol] 131 mg/dL High 70 - 100 mg/dL [facility] Glucose [Mass/Vol] 116 mg/dL High 70 - 100 mg/dL [facility] Glucose [Mass/Vol] 67 mg/dL Low 70 - 100 mg/dL [facility] No Panel Informationon 02-11 Interpretation and review of laboratory results Abnormal [facility] Performed by: Tutu Romeo, [address] [place] [address] CLIA ID: [id number] [facility] Interpretation and review of laboratory results Normal [facility] Performed by: Tutu Romeo [address] [place] [address] CLIA ID: [id number] [facility] Interpretation and review of laboratory results Abnormal [facility] Performed by: Tutu Romeo [address] [place] [address] CLIA ID: [id number] [facility] Interpretation and review of laboratory results Abnormal [facility] Performed by: [facility] [address] [place] [address] CLIA ID: [id number] [facility] Interpretation and review of laboratory results Abnormal [facility] Performed by: Tutu Romeo [address] [place] [address] CLIA ID: [id number] [facility] Nursing Noteon 02-11-2025 Nursing Note ROLO wrap applied to both feet. Normal [facility] US Lower extremity vein - bi lateralon 02-11-2025 No evidence of deep vein or superficial vein thrombosis in the right lower extremity. Vessels demonstrate normal compressibility, color filling, and phasic and spontaneous flow. No evidence of deep vein or superficial vein thrombosis in the left lower extremity. Vessels demonstrate normal compressibility, color filling, and phasic and spontaneous flow. Exam performed with the assistance of Tri - C student Ben Rae Study Details A marin scale, color Doppler imaging and spectral Doppler analysis ultrasound was performed. During the study longitudinal and transverse views were obtained. Pulsed wave doppler was performed. The exam was performed with the patient in the supine position. Overall the study quality was good. Study was technically difficult due to: bedside exam and diffuse subcutaneous edema. Right Lower Venous No evidence of deep vein or superficial vein thrombosis. The common femoral, saphenofemoral junction, femoral, popliteal, gastrocnemius, soleal, greater saphenous, posterior tibial, and peroneal veins were imaged in the transverse view and showed normal compressibility. The common femoral, middle femoral, and popliteal veins were imaged in the longitudinal view and showed normal color filling and normal phasic and spontaneous flow. Left Lower Venous No evidence of deep vein or superficial vein thrombosis. The common femoral, saphenofemoral junction, femoral, popliteal, gastrocnemius, soleal, greater saphenous, posterior tibial, and peroneal veins were imaged in the transverse view and showed normal compressibility. The common femoral, middle femoral, and popliteal veins were imaged in the longitudinal view and showed normal color filling and normal phasic and spontaneous flow. CV CPACS CBC (HEMOGRAM)on 02-10-2025 Erythrocyte distribution width (RBC) [Ratio] 18.6 % High 11.5-15.0 [facility] Comment on above: Performed By: #### L [id number] ####Volunteer Services Assistant: DIGNA MORALES ([phone])[facility] ([facility])[address] [place] [address] Hematocrit (Bld) [Volume fraction] 45.8 % Normal 40.0-52.0 [facility] Comment on above: Performed By: #### L AB294 ####Volunteer Services Assistant: DIGNA MORALES ([phone])[facility] [place] [address] Hemoglobin (Bld) [Mass/Vol] 14.8 g/dL Normal 13.0-18.0 [facility] Comment on above: Performed By: #### L AB294 ####Volunteer Services Assistant: DIGNA MORALES ([phone])[facility] SUSANK[facility] (SBHLAB)[address] MCH (RBC) [Entitic mass] 28.1 pg Normal 26.0-34.0 [facility] Comment on above: Performed By: #### L AB294 ####Volunteer Services Assistant: DIGNA MORALES ([phone])[facility]ITAL[facility] [place] (SBHLAB)[address] MCHC 32.3 % Normal 30.5-36.0 [facility] Comment on above: Performed By: #### L AB294 ####Volunteer Services Assistant: DIGNA MORALES ([phone])[facility]ITAL[facility] [place] (SBHLAB)[address] MCV (RBC) [Entitic vol] 87.1 fL Normal 77.0-99.0 S [facility] Comment on above: Performed By: #### L AB294 ####Volunteer Services Assistant: DIGNA MORALES ([phone])[facility]ITAL[facility] [place] (SBHLAB)[address] Platelet mean volume (Bld) [Entitic vol] 10.7 fL Normal 9.0-12.7 [facility] Comment on above: Performed By: #### L AB294 ####Volunteer Services Assistant: DIGNA MORALES ([phone])[facility]ITAL[facility] [place] (SBHLAB)[address] [place] [address] [place] Platelets (Bld) [#/Vol] 198 10*3/uL Normal 140-440 [facility] Comment on above: Performed By: #### L AB294 ####Volunteer Services Assistant: DIGNA MORALES ([phone])[facility]ITALCarl[facility] [place] (SBHLAB)[address] [place] [address] [place] RBC (Bld) [#/Vol] 5.26 10*6/uL Normal 4.40-5.90 [facility] Comment on above: Performed By: #### L AB294 ####Volunteer Services Assistant: DIGNA MORALES ([phone])[facility] (SBHLAB)[address] WBC (Bld) [#/Vol] 5.1 10*3/uL Normal 3.6-10.7 [facility] Comment on above: Performed By: #### L AB294 ####Volunteer Services Assistant: DIGNA MORALES ([phone])[facility] (SBHLAB)[address] CBC panel Auto (Bld)on 02-10 Erythrocyte distribution width (RBC) [Ratio] 18.6 % High 11.5 - 15.0 % [facility] Hematocrit (Bld) [Volume fraction] 45.8 % 40.0 - 52.0 % [facility] Hemoglobin (Bld) [Mass/Vol] 14.8 g/dL 13.0 - 18.0 g/dL [facility] Interpretation and review of laboratory results Abnormal [facility] MCH (RBC) [Entitic mass] 28.1 pg 26. 0 - 34.0 pg [facility] MCHC (RBC) [Mass/Vol] 32.3 % 30.5 - 36.0 % [facility] MCV (RBC) [Entitic vol] 87.1 fL 77.0 - 99.0 fL [facility] Platelet mean volume (Bld) [Entitic vol] 10.7 fL 9.0 - 12.7 fL [facility] Platelets (Bld) [#/Vol] 198 10*3/uL 140 - 440 10*3/uL [facility] RBC (Bld) [#/Vol] 5.26 10*6/uL 4.40 - 5.9 0 10*6/uL [facility] WBC (Bld) [#/Vol] 5.1 10*3/uL 3.6 - 10.7 10*3/uL [facility] COMPREHENSIVE METABOLIC PANE Greg 02-10-2025 Albumin [Mass/Vol] 3.4 g/dL Normal 3.4-4.8 [facility] Comment on above: Performed By: #### L AB106, LAB17 ####Volunteer Services Assistant: DIGNA MORALES ([phone])[facility]ITAL[facility] (SBHLAB)[address] ALP [Catalytic activity/Vol] 94 U/L Normal 40-150 [facility] Comment on above: Performed By: #### L AB106, LAB17 ####Volunteer Services Assistant: DIGNA MORALES ([phone])[facility] (SB[facility]AB)[address] ALT [Catalytic activity/Vol] 10 U/L Normal <40 [facility] Comment on above: Performed By: #### L AB106, LAB17 ####Volunteer Services Assistant: DIGNA MORALES ([phone])[facility] (SBHLAB)[address] Anion gap [Moles/Vol] 17 mmol/L High 3-13 [facility] Comment on above: Performed By: #### L AB106, LAB17 ####Volunteer Services Assistant: DIGNA MORALES ([phone])[facility] (SBHLAB)[address] AST [Catalytic activity/Vol] 39 U/L High <34 [facility] Comment on above: Result Comment: TC Potential interference from hemolysis Performed By: #### L AB106, LAB17 ####Volunteer Services Assistant: DIGNA MORALES ([phone])[facility] (SBHLAB)[address] Bilirubin [Mass/Vol] 1.8 mg/dL High <1.2 [facility] Comment on above: Performed By: #### L AB106, LAB17 ####Volunteer Services Assistant: DIGNA MORALES ([phone])[facility] (SBHLAB)[address] Calcium [Mass/Vol] 8.7 mg/dL Low 8.8-10.0 [facility] Comment on above: Performed By: #### L AB106, LAB17 ####Volunteer Services Assistant: DIGNA MORALES ([phone])[facility] BARBHARSHN (SBHLAB)[address] Chloride [Moles/Vol] 102 mmol/L Normal 98-107 [facility] Comment on above: Performed By: #### L AB106, LAB17 ####Volunteer Services Assistant: DIGNA MORALES ([phone])[facility] [place] (SBHLAB)[address] CO2 [Moles/Vol] 22 mmol/L Low 23-31 [facility] Comment on above: Performed By: #### L AB106, LAB17 ####Volunteer Services Assistant: DIGNA MORALES ([phone])[facility]ITALCarl[facility] [place] (SBHLAB)[address] Creatinine [Mass/Vol] 1.94 mg/dL High 0.72-1.[address] [facility] Comment on above: Performed By: #### L AB106, LAB17 ####Volunteer Services Assistant: DIGNA MORALES ([phone])[facility] [place] (SBHLAB)[address] GLOMERULAR FILTRATION RATE ML/MIN/1.73 SQ M.PREDICTED 33.3 mL/min/1.73m*2 Low >60.0 [facility] Comment on above: Result Comment: Calc ulation based on the Chronic Kidney Disease Epidemiology Collaboration (CKD-EPI) equation refit without adjustment for race Performed By: #### L AB106, LAB17 ####Volunteer Services Assistant: DIGNA MORALES ([phone])[facility] [place] (SBHLAB)[address] [place] [address] [place] Glucose [Mass/Vol] 89 mg/dL Normal 82-115 [facility] Comment on above: Performed By: #### L AB106, LAB17 ####Volunteer Services Assistant: DIGNA MORALES ([phone])[facility] [place] (SBHLAB)[address] [place] [address] [place] Potassium [Moles/Vol] 3.9 mmol/L Normal 3.5-5.[address] [facility] Comment on above: Result Comment: [facility] potassium values may be up to 0.5 mmol/L lower than serum values. Performed By: #### L AB106, LAB17 ####Volunteer Services Assistant: DIGNA MORALES ([phone])[facility] (SBHLAB)[address] Protein [Mass/Vol] 6.6 g/dL Normal 6.4-8.3 [facility] Comment on above: Performed By: #### L AB106, LAB17 ####Volunteer Services Assistant: DIGNA MORALES ([phone])[facility] (SBHLAB)[address] Sodium [Moles/Vol] 141 mmol/L Normal 136-145 [facility] Comment on above: Performed By: #### L AB106, LAB17 ####Volunteer Services Assistant: DIGNA MORALES ([phone])[facility] (SBHLAB)[address] Urea nitrogen [Mass/Vol] 23 mg/dL Normal 9-23 [facility] Comment on above: Performed By: #### L AB106, LAB17 ####Volunteer Services Assistant: DIGNA MORALES ([phone])[facility] ([facility])[address] [place] [address] Comprehensive metabolic 1998 panelon 02-10-2025 Albumin [Mass/Vol] 3.4 g/dL 3.4 - 4.8 g/dL [facility] ALP [Catalytic activity/Vol] 94 U/L 40 - 150 U/L [facility] ALT [Catalytic activity/Vol] 10 U/L NINF - 40 U/L [facility] Anion gap [Moles/Vol] 17 mmol/L High 3 - 13 mmol/L [facility] AST [Catalytic activity/Vol] 39 U/L High NINF - 34 U/L [facility] Comment on above: TC Potential interference from hemolysis Bilirubin [Mass/Vol] 1.8 mg/dL High NINF - 1.2 mg/dL [facility] Calcium [Mass/Vol] 8.7 mg/dL Low 8.8 - 10. 0 mg/dL [facility] Chloride [Moles/Vol] 102 mmol/L 98 - 10 7 mmol/L [facility] CO2 [Moles/Vol] 22 mmol/L Low 23 - 31 mmol/L [facility] Creatinine [Mass/Vol] 1.94 mg/dL High 0.72 - 1.25 mg/dL [facility] GFR/1.73 sq M.predicted (S/P/Bld) [Vol rate/Area] 33.3 mL/min Low - PINF [facility] Comment on above: Calculation based on the Chronic Kidney Disease Epidemiology Collaboration (CKD-EPI) equation refit without adjustment for race Glucose [Mass/Vol] 89 mg/dL 82 - 115 mg/dL [facility] Interpretation and review of laboratory results Abnormal [facility] Potassium [Moles/Vol] 3.9 mmol/L 3.5 - 5.1 mmol/L [facility] Comment on above: Plasma potassium erika ues may be up to 0.5 mmol/L lower than serum values. 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 Tylenold did not help. He was just discharged on 02/01 for CHF exacerbation and diruetics were optimized for homegoing, which he claims he has remained compliant with. He reports less CP/SOB and has lost >10 # already, with overall improvement in swelling to his legs and scrotum. Denies stubbing his toes or any injuries or falls. On intake, afebrile, VSS, and labs WNL, essentially unchanged form 02/01. BNP is still up to 30K. Patient started on broad spectrum antibiotics and ID consulted. 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 Past Medical History: Medical History[1] Past Surgical History: Surgical History[2] Current Medications: Current Medications[3] Allergies: Allergies[4] Social History: Social History Socioeconomic History Marital status: Spouse name: Not on file Number of children: Not on file Years of education: Not on file Highest education level: Not on file Occupational History Not on file Tobacco Use Smoking status: Former Current packs/day: 0.00 Types: Cigarettes Quit date: 11/08/1999 Years since quittin.2 Smokeless tobacco: Never Substance and Sexual Activity Alcohol use: Yes Comment: occasionally Drug use: No Comment: caffeine:1-2 cups of coffee a day Sexual activity: Not on file Other Topics Concern Not on file Social History Narrative Not on file Social Drivers of Health Financial Resource Strain: Not on file Food Insecurity: Not on file Transportation Needs: Not on file Physical Activity: Not on file Stress: Not on file Social Connections: Not on file Intimate Partner Violence: Not At Risk (01/28/2025) Humiliation, Afraid, Rape, and Kick questionnaire Fear of Current or Ex-Partner: No Emotionally Abused: No Physically Abused: No Sexually Abused: No Housing Stability: Not on file Family History: Family History[5] Review of Systems: Review of Systems Constitutional: Negative for chills, fatigue and fever. Respiratory: Negative for cough and shortness of breath (platypnea, but better since treated for CHF 2 weeks ago). Cardiovascular: Positive for leg swelling (chornic, but redness andpain worsened 2 days ago). Negative for chest pain. Gastrointestinal: Negative. Genitourinary: Positive for scrotal swelling (much better form last admission). Skin: Positive for color change (to both pretibia). Negative for rash. Neurological: Negative for weakness and headaches. Hematological: Does not bruise/bleed easily. Psychiatric/Behavior al: Negative for agitation and confusion. Vitals: Patient Vitals for the past 24 hrs: BP Temp Temp src Pulse Resp SpO2 Weight 02/10/25 1206 (!) 157/89 36.6 ?C (97.8 ?F) Temporal 87 20 98 % 82.6 kg (182 lb) 02/10/25 0647 (!) 156/85 -- -- 79 16 98 % -- 02/10/25 0134 133/74 36.6 ?C (97.8 ?F) Temporal 85 17 98 % -- Physical Exam: Physical Exam Labs: Recent Labs 02/10/25223 NA 141 K 3.9 CL 102 CO2 22* BUN 23 CREATININE 1.94* GLUCOSE 89 CALCIUM 8.7* PROT 6.6 BILITOT 1.8* ALKPHOS 94 AST 39* ALT 10 Recent Labs 02/10/25223 WBC 5.1 HGB 14.8 HCT 45.8 PLT 198 LA 2 Micro: No results for input(s): COVID19 in the last 72 hours. No recent studies Lines: PIV Radiography/Echo/Oth er: reviewed No recent US to r/o DVT Antimicrobials,Start /End Dates: Vancomycin Cefepime Impression: 84 M with multiple comorbidities, admitted with bilateral leg edema and erythema, acute on chronic: Presumed cellulitis- but not impressed, on elevation, some blanching happens, and no calor. More like dependent rubor. Recent CHF exacerbation- seems improved form 2 weeks ago. Overall nontoxic. Plan: Check PCT, US LE for DVT. But if labs unrevealing, favor monitoring off antibiotic. Recommend leg elevation and start using compression hose. Nailcare with podiatry. Dr. Muniz assumes coverage tomorrow for ID. Total time of 60 minutes on this day of encounter spent on, but not limited to review of tests, medical records , complex history , counseling and education (patient, family member, caregiver), and ordering medications, tests, and procedures. [1] Past Medical History: Diagnosis Date Acute HFrEF (heart failure with reduced ejection fraction) (HCC) 09/22/2020 Bladder cancer (HCC) CHF (congestive heart failure) (HCC) Chronic HFrEF (heart failure with reduced ejection fraction) (HCC) 09/21/2020 Chronic kidney disease DM (diabetes mellitus) (HCC) DM (diabetes mellitus) (HCC) DVT (deep venous thrombosis) (HCC) ED (erectile d (more content not included)... [facility] ED Provider Noteon 5 ED Provider Note EMERGENCY DEPARTMENT ENCOUNTER Pt Name: Megan Nascimento Birthdate 1940 Date of evaluation: 02/10/2025 ED Provider: Latricia Landa DO CHIEF COMPLAINT Chief Complaint Patient presents with Leg Swelling Pt coming in for BLE swelling & redness since being discharged from inpatient for CHF exacerbation about 1 week ago HISTORY OF PRESENT ILLNESS (Location/Symptom, Timing/Onset, Context/Setting, Quality, Duration, Modifying Factors, Severity) Note limiting factors. I wore appropriate PPE for the entirety of this encounter. HPI Megan Nascimento is a 84 y.o. male CHF (12% ) status post AICD, PE/DVT, CKD 3, hypertension, hyperlipidemia, diabetes who presents to the emergency department complaint of progressively enlarging burning bilateral anterior claros redness over the last several days. Recent admission for CHF exacerbation 01/28 through , discharged on Torsemide 40 mg. Ports compliance with prescribed medications. Reports that lower extremity swelling continues to improve. States that he is losing weight every day when he weighs himself on scale. Weight 182.4 last night. Denies fevers or chills, nausea/vomiting, chest pain, shortness of breath, peripheral numbness/tingling/we akness. Nursing Notes were reviewed. Limitations to history: None Outside historians: None and Family daughter REVIEW OF SYSTEMS Review of Systems Negative except per HPI PAST MEDICAL HISTORY Medical History[1] SURGICAL HISTORY Surgical History[2] CURRENT MEDICATIONS Previous Medications CHOLECALCIFEROL (VITAMIN D-3) 25 MCG (1000 UT) CAPSULE Take by mouth. CYANOCOBALAMIN (VITAMIN B-12) 1000 MCG TABLET Take 1 tablet by mouth in the morning. FERROUS SULFATE 325 (65 FE) MG TABLET Take 325 mg by mouth. GABAPENTIN (NEURONTIN) 100 MG CAPSULE Take 100 mg by mouth. GLIMEPIRIDE (AMARYL) 1 MG TABLET Take 1 mg by mouth daily (with breakfast). LEVOTHYROXINE (SYNTHROID, LEVOXYL) 25 MCG TABLET Take 25 mcg by mouth in the morning. METOPROLOL SUCCINATE XL (TOPROL-XL) 100 MG 24 HR TABLET Take 100 mg by mouth in the morning. MULTIPLE VITAMIN (MULTIVITAMIN) TABLET Take 1 tablet by mouth daily. PANTOPRAZOLE (PROTONIX) 40 MG EC TABLET daily ROSUVASTATIN (CRESTOR) 20 MG TABLET Take 20 mg by mouth daily. SACUBITRIL-VALSARTAN (ENTRESTO) 24-26 MG TABLET Take 1 tablet by mouth in the morning and 1 tablet before bedtime. SERTRALINE (ZOLOFT) 25 MG TABLET Take 25 mg by mouth in the morning. SUCRALFATE (CARAFATE) 1 G TABLET Take 1 g by mouth. TAMSULOSIN (FLOMAX) 0.4 MG 24 HR CAPSULE Take 1 capsule (0.4 mg) by mouth daily. TORSEMIDE (DEMADEX) 20 MG TABLET Take 2 tablets (40 mg) by mouth daily. Do not start before February 02, 2025. ALLERGIES Atorvastatin, Latanoprost, Lovastatin, and Other FAMILY HISTORY Family History[3] SOCIAL HISTORY Social History[4] SCREENINGS PHYSICAL EXAM ED Triage Vitals [02/10/25 0134] Temp Heart Rate Resp BP 36.6 ?C (97.8 ?F) 85 17 133/74 SpO2 Temp Source Heart Rate Source Patient Position 98 % Temporal Monitor -- BP Location FiO2 (%) -- -- Physical Exam BP 133/74 Pulse 85 Temp 36.6 ?C (97.8 ?F) (Temporal) Resp 17 SpO2 98% Lower Extremity Exam: Sharply demarcated ragged bordered warm cellulitic changes noted bilateral anterior shins. No fluctuance to suggest abscess. No crepitus. No obvious deformity. 1+ pitting edema bilateral lower extremities. ROM is intact. 5/5 strength to hip flexors, hip extensors, knee flexion, knee extension, dorsiflexion, plantarflexion, EHL of great toe. Distal capillary refill takes less than 2 seconds. DP, PT pulses are 2+ bilaterally. Distal sensation and motor intact. DIAGNOSTIC RESULTS LABS: Labs Reviewed CBC (HEMOGRAM) - Abnormal Result Value Auto WBC 5.1 RBC 5.26 Hemoglobin 14.8 Hematocrit 45.8 MCV 87.1 MCH 28.1 MCHC 32.3 RDW 18.6 (*) Platelets 198 MPV 10.7 COMPREHENSIVE METABOLIC PANEL - Abnormal SODIUM 141 POTASSIUM 3.9 CHLORIDE 102 CARBON DIOXIDE 22 (*) ANION GAP 17 (*) UREA NITROGEN 23 CREATININE 1.94 (*) GLUCOSE 89 CALCIUM 8.7 (*) AST (SGOT) 39 (*) ALT 10 ALKALINE PHOSPHATASE 94 ALBUMIN 3.4 BILIRUBIN, TOTAL 1.8 (*) TOTAL PROTEIN 6.6 eGFR 33.3 (*) NT PRO BNP - Abnormal NT PRO BNP >30,000 (*) LACTIC ACID WITH REFLEX - Normal LACTIC ACID 2.0 All other labs were within normal range or not returned as of this dictation. EMERGENCY DEPARTMENT COURSE and DIFFERENTIAL DIAGNOSIS/MDM: Vitals: Vitals: 02/10/25 0134 BP: 133/74 Pulse: 85 Resp: 17 Temp: 36.6 ?C (97.8 ?F) TempSrc: Temporal SpO2: 98% 84 y.o. male CHF (12% ) status post AICD, PE/DVT, CKD 3, hypertension, hyperlipidemia, diabetes who presents to the emergency department complaint of progressively enlarging burning bilateral anterior claros redness over the last several days. Recent admission for CHF exacerbation 01/28 through , discharged on Torsemide 40 mg. Repor (more content not included)... Normal [facility] LACTIC ACID WITH REFLEXon Lactate [Moles/Vol] 2.0 mmol/L Normal 0.5-2.2 [facility] Comment on above: Performed By: #### L [id number] ####Volunteer Services Assistant: DIGNA MORALES ([id number])[facility] ([facility])[address] [place] [address] Laboratory - Chemistry and C hemistry - challengeon 02-10-2025 Glucose [Mass/Vol] 98 mg/dL 70 - 100 mg/dL [facility] Glucose [Mass/Vol] 80 mg/dL 70 - 100 mg/dL [facility] Glucose [Mass/Vol] 83 mg/dL 70 - 100 mg/dL [facility] Lactate [Moles/Vol] 2 mmol/L 0.5 - 2. 2 mmol/L [facility] NT PRO BNPon 02-10-2025 NT PRO BNP >55134 High <450 [facility] Comment on above: Performed By: #### L [id number], LAB17 ####Volunteer Services Assistant: DIGNA MORALES ([id number])[facility] ([facility])[address] [place] [address] Natriuretic peptide B [Mass/ Vol]on 02-10-2025 Interpretation and review of laboratory results Abnormal [facility] Natriuretic peptide B (Bld) [Mass/Vol] pg/mL High NINF - 450 pg/mL [facility] No Panel Informationon 02-10 Interpretation and review of laboratory results Normal [facility] Performed by: Tutu Daviserton, [address] [facility], [facility] [address] CLIA ID: [id number] [facility] Interpretation and review of laboratory results Normal [facility] Performed by: Tutu Romeo, [address] [facility], [facility] [address] CLIA ID: [id number] [facility] Interpretation and review of laboratory results Normal [facility] Performed by: Tutu Pillain, [address] [facility], [facility] [address] CLIA ID: [id number] [facility] Interpretation and review of laboratory results Normal [facility] 36on 02-07-2025 36 TC to Pt No answer LVM [facility] 36 Patient left message saying he had a question about meds [facility] 36 Per Marcela Rosado Pt can continue the Dupixent No answer LVM explaining this as VM states full name [place] [id number] 02-04-2025 36 Heart Failure Clinic Discharge Call Discharge Date 02/01/25 Patient was called today as a hospital discharge follow up phone call. The following represents a summary of the call. Do you feel as good as you did when you left the hospital? Are you able to do some activities of daily living? yes, yes Have you had any healthcare appointments since discharge? If yes, did they change any medications? no Have you missed any of your pills since discharge? Medication list reviewed and consistent with discharge EMR. no, consistent Do you have a scale/Are you doing daily weights/Any changes in weight? Yes today Pt #185 yesterday 185.2# Do you have any symptoms of volume overload? (SOB, abdominal bloating/fullness, ankle/leg swelling/orthopnea) or dehydration? A little SOB, a little BLE swelling- comes and goes but has been rushing around. No other s/s How are you doing on your low sodium/salt diet? yes Do you have any questions;concerns? Pt is wondering is he is allow to continue his Dupixent Confirm next OV or when you will call again. RP 02/15/25 1430 Pt verbalizes understanding. [facility] 36 Patient called and was returning your phone call [facility] 36 TC to Pt no answer LVM [facility] 36 Discharged with heart failure. Needs 72 hour post discharge phone call. [facility] [id number] 02-01-2025 [id number] Confirmed with Valerie at PCP's office that patient is active with Dr. Durand for PCP and he will follow for home care orders. [facility] [id number] 02-01-2025 [id number] Home Health Care Services - [facility] [address] [place] [id number] Patient/Family Choice [facility] [phone] Next Site of Care Admission Date: 01/28/2025 01:43 AM Patient Name: MEGAN NASCIMENTO Location: [address] CARDIAC [place] [address] Date of : 1940 Placement Information Referral Type:Home Health Care Services - New Referral ID:[id number] Provider Name:[facility] Address 1:[address] Address 2: City:[place] Selection Factors:Patient/Fami ly Choice State:[place] Normal [facility] CALCIUM, IONIZEDon CALCIUM IONIZED 4.40 mg/dL Normal 4.30-5.20 [facility] Comment on above: Performed By: #### L AB54 ####Volunteer Services Assistant: JORGE A MALDONADO ([phone])[facility])[address] [place] [address] PH, IONIZED CALCIUM 7.33 Normal 7.31-7.46 [facility] Comment on above: Performed By: #### L AB54 ####Volunteer Services Assistant: JORGE A MALDONADO ([phone])[facility])[address] [place] [address] CBC (HEMOGRAM)on 02-01-2025 Erythrocyte distribution width (RBC) [Ratio] 19.1 % High 11.5-15.0 [facility] Comment on above: Performed By: #### L AB294 #### Volunteer Services Assistant: JORGE A MALDONADO ([phone]) [facility]) [address] [place] [address] Hematocrit (Bld) [Volume fraction] 44.6 % Normal 40.0-52.0 [facility] Comment on above: Performed By: #### L AB294 #### Volunteer Services Assistant: JORGE A MALDONADO ([id number]) [facility]) [address] [place] [address] Hemoglobin (Bld) [Mass/Vol] 14.4 g/dL Normal 13.0-18.0 [facility] Comment on above: Performed By: #### L AB294 #### Volunteer Services Assistant: JORGE A MALDONADO ([id number]) [facility] [address] [place] [address] MCH (RBC) [Entitic mass] 28.2 pg Normal 26.0-34.0 [facility] Comment on above: Performed By: #### L [id number] #### Volunteer Services Assistant: JORGE A MALDONADO ([id number]) [facility] ([facility]) [address] [place] [address] MCHC 32.3 % Normal 30.5-36.0 [facility] Comment on above: Performed By: #### L AB294 #### Volunteer Services Assistant: JORGE A MALDONADO ([phone]) [facility] ([facility]) [address] [place] [address] MCV (RBC) [Entitic vol] 87.5 fL Normal 77.0-99.0 [facility] Comment on above: Performed By: #### L AB294 #### Volunteer Services Assistant: JORGE A MALDONADO ([phone]) [facility] ([facility]) [address] [place] [address] Platelet mean volume (Bld) [Entitic vol] 10.3 fL Normal 9.0-12.7 [facility] Comment on above: Performed By: #### L AB294 #### Volunteer Services Assistant: JORGE A MALDONADO ([id number]) [facility] ([facility]) [address] [place] [address] Platelets (Bld) [#/Vol] 194 10*3/uL Normal 140-440 [facility] Comment on above: Performed By: #### L [id number] #### Volunteer Services Assistant: JORGE A MALDONADO ([phone]) [facility] ([facility]) [address] [place] [address] RBC (Bld) [#/Vol] 5.10 10*6/uL Normal 4.40-5.90 [facility] Comment on above: Performed By: #### L AB294 #### Volunteer Services Assistant: JORGE A MALDONADO ([phone]) [facility] ([facility]) [address] [place] [address] WBC (Bld) [#/Vol] 4.2 10*3/uL Normal 3.6-10.7 [facility] Comment on above: Performed By: #### L AB294 #### Volunteer Services Assistant: JORGE A MALDONADO ([id number]) [facility] ([facility]) [address] [place] [address] CBC panel Auto (Bld)on 02-01 Erythrocyte distribution width (RBC) [Ratio] 19.1 % High 11.5 - 15.0 % [facility] Hematocrit (Bld) [Volume fraction] 44.6 % 40.0 - 52.0 % [facility] Hemoglobin (Bld) [Mass/Vol] 14.4 g/dL 13.0 - 18.0 g/dL [facility] Interpretation and review of laboratory results Abnormal [facility] MCH (RBC) [Entitic mass] 28.2 pg 26. 0 - 34.0 pg [facility] MCHC (RBC) [Mass/Vol] 32.3 % 30.5 - 36.0 % [facility] MCV (RBC) [Entitic vol] 87.5 fL 77.0 - 99.0 fL [facility] Platelet mean volume (Bld) [Entitic vol] 10.3 fL 9.0 - 12.7 fL [facility] Platelets (Bld) [#/Vol] 194 10*3/uL 140 - 440 10*3/uL [facility] RBC (Bld) [#/Vol] 5.1 10*6/uL 4.40 - 5.9 0 10*6/uL [facility] WBC (Bld) [#/Vol] 4.2 10*3/uL 3.6 - 10.7 10*3/uL [facility] COMPREHENSIVE METABOLIC PANE Greg 02-01-2025 Albumin [Mass/Vol] 3.7 g/dL Normal 3.4-4.8 [facility] Comment on above: Performed By: #### L AB113, LAB17, [id number] ####Volunteer Services Assistant: JROGE A MALDONADO ([id number])[facility] ([facility])[address] [place] [address] ALP [Catalytic activity/Vol] 106 U/L Normal 40-150 [facility] Comment on above: Performed By: #### L AB113, LAB17, [id number] ####Volunteer Services Assistant: JORGE A MALDONADO ([id number])[facility] ([facility])[address] [place] [address] ALT [Catalytic activity/Vol] 14 U/L Normal <40 [facility] Comment on above: Performed By: #### L AB113, LAB17, [id number] ####Volunteer Services Assistant: JORGE A MALDONADO ([phone])[facility] ([facility])[address] [place] [address] Anion gap [Moles/Vol] 10 mmol/L Normal 3-13 [facility] Comment on above: Performed By: #### Russell AB113, LAB17, [id number] ####Volunteer Services Assistant: JORGE A MALDONADO ([phone])[facility] ([facility])[address] [place] [address] AST [Catalytic activity/Vol] 30 U/L Normal <34 [facility] Comment on above: Performed By: #### L AB113, LAB17, [id number] ####Volunteer Services Assistant: JORGE A MALDONADO ([phone])[facility] ([facility])[address] [place] [address] Bilirubin [Mass/Vol] 1.7 mg/dL High <1.2 [facility] Comment on above: Performed By: #### L ABNakul, LAB17, [id number] ####Volunteer Services Assistant: JORGE A MALDONADO ([id number])[facility] ([facility])[address] [place] [address] Calcium [Mass/Vol] 9.6 mg/dL Normal 8.8-10.0 [facility] Comment on above: Performed By: #### L AB113, LAB17, [id number] ####Volunteer Services Assistant: JORGE A MALDONADO ([id number])[facility])[address] [place] [address] Chloride [Moles/Vol] 104 mmol/L Normal 98-107 [facility] Comment on above: Performed By: #### L AB113, LAB17, [id number] ####Volunteer Services Assistant: JORGEA MALDONADO ([id number])[facility] ([facility])[address] [place] [address] [place] CO2 [Moles/Vol] 25 mmol/L Normal 23-31 [facility] Comment on above: Performed By: #### L AB113, LAB17, [id number] ####Volunteer Services Assistant: JORGE A MALDONADO ([id number])[facility] ([facility])[address] [place] [address] Creatinine [Mass/Vol] 1.90 mg/dL High 0.72-1.[address] [facility] Comment on above: Performed By: #### L ABNakul, LAB17, [id number] ####Volunteer Services Assistant: JORGE A MALDONADO ([phone])[facility])[address] [place] [address] GLOMERULAR FILTRATION RATE ML/MIN/1.73 SQ M.PREDICTED 34.1 mL/min/1.73m*2 Low >60.0 [facility] Comment on above: Result Comment: Calc ulation based on the Chronic Kidney Disease Epidemiology Collaboration (CKD-EPI) equation refit without adjustment for race Performed By: #### Russell ABNakul, LAB17, [id number] ####Volunteer Services Assistant: JORGE A MALDONADO ([id number])[facility] ([facility])[address] [place] [address] Glucose [Mass/Vol] 121 mg/dL High 82-115 [facility] Comment on above: Performed By: #### L AB113, LAB17, [id number] ####Volunteer Services Assistant: JORGE A MALDONADO ([phone])[facility] ([facility])[address] [place] [address] [place] Potassium [Moles/Vol] 3.7 mmol/L Normal 3.5-5.[address] [facility] Comment on above: Result Comment: [facility] potassium values may be up to 0.5 mmol/L lower than serum values. Performed By: #### L AB113, LAB17, [id number] ####Volunteer Services Assistant: JORGE A MALDONADO ([id number])[facility] ([facility])[address] [place] [address] [place] Protein [Mass/Vol] 7.1 g/dL Normal 6.4-8.3 [facility] Comment on above: Performed By: #### L AB113, LAB17, [id number] ####Volunteer Services Assistant: JORGE A MALDONADO ([phone])[facility] ([facility])[address] [place] [address] Sodium [Moles/Vol] 139 mmol/L Normal 136-145 [facility] Comment on above: Performed By: #### L AB113, LAB17, [id number] ####Volunteer Services Assistant: JORGE A MALDONADO ([phone])[facility] ([facility])[address] [place] [address] Urea nitrogen [Mass/Vol] 28 mg/dL High 9-23 [facility] Comment on above: Performed By: #### L AB113, LAB17, [id number] ####Volunteer Services Assistant: JORGE A MALDONADO ([id number])[facility] ([facility])[address] [place] [address] Calcium.ionized [Moles/Vol]O rdered By: Manuel Chow on 02-01-2025 Calcium.ionized (Bld) [Moles/Vol] 4.4 mg/dL 4.30 - 5.20 mg/dL [facility] Interpretation and review of laboratory results Normal [facility] PH, IONIZED CALCIUM 7.33 7.31 - 7.46 [facility] Comprehensive metabolic 1998 panelon 02-01-2025 Albumin [Mass/Vol] 3.7 g/dL 3.4 - 4.8 g/dL [facility] ALP [Catalytic activity/Vol] 106 U/L 40 - 150 U/L [facility] ALT [Catalytic activity/Vol] 14 U/L NINF - 40 U/L [facility] Anion gap [Moles/Vol] 10 mmol/L 3 - 13 mmol/L [facility] AST [Catalytic activity/Vol] 30 U/L NINF - 34 U/L [facility] Bilirubin [Mass/Vol] 1.7 mg/dL High NINF - 1.2 mg/dL [facility] Calcium [Mass/Vol] 9.6 mg/dL 8.8 - 10. 0 mg/dL [facility] Chloride [Moles/Vol] 104 mmol/L 98 - 10 7 mmol/L [facility] CO2 [Moles/Vol] 25 mmol/L 23 - 31 mmol/L [facility] Creatinine [Mass/Vol] 1.9 mg/dL High 0.72 - 1.25 mg/dL [facility] GFR/1.73 sq M.predicted (S/P/Bld) [Vol rate/Area] 34.1 mL/min Low - PINF [facility] Comment on above: Calculation based on the Chronic Kidney Disease Epidemiology Collaboration (CKD-EPI) equation refit without adjustment for race Glucose [Mass/Vol] 121 mg/dL High 82 - 115 mg/dL [facility] Interpretation and review of laboratory results Abnormal [facility] Potassium [Moles/Vol] 3.7 mmol/L 3.5 - 5.1 mmol/L [facility] Comment on above: Plasma potassium erika ues may be up to 0.5 mmol/L lower than serum values. Protein [Mass/Vol] 7.1 g/dL 6.4 - 8.3 g/dL [facility] Sodium [Moles/Vol] 139 mmol/L 136 - 145 mmol/L [facility] Urea nitrogen [Mass/Vol] 28 mg/dL High 9 - 23 mg/d L [facility] Laboratory - Chemistry and C hemistry - challengeon 02-01-2025 Magnesium [Mass/Vol] 2.1 mg/dL 1.6 - 2 .6 mg/dL [facility] Glucose [Mass/Vol] 129 mg/dL High 70 - 100 mg/dL [facility] Glucose [Mass/Vol] 101 mg/dL High 70 - 100 mg/dL [facility] MAGNESIUMon 02-01-2025 Magnesium [Mass/Vol] 2.1 mg/dL Normal 1.6-2.6 [facility] Comment on above: Result Comment: MIO R COMMENTS: Higher values can be expected in females during menses. Performed By: #### L AB113, LAB17, [id number] ####Volunteer Services Assistant: JORGE A MALDONADO ([phone])[facility] ([facility])[address] [place] [address] Magnesium [Mass/Vol]on 02-01 Higher values can be expected in females during menses. [facility] No Panel Informationon 02-01 Interpretation and review of laboratory results Normal [facility] Interpretation and review of laboratory results Abnormal [facility] Performed by: [facility], [address] [place] [id number] CLIA ID: [id number] [facility] Interpretation and review of laboratory results Abnormal [facility] Performed by: [facility], [address] [place] [id number] CLIA ID: [id number] [facility] Nursing Noteon 02-01-2025 Nursing Note AVS instructions given. Meds to bed delivered. IV's removed. awake overnight monitor removed, cleaned and placed at corresponding location nurses station. Patient has no questions or concerns at this time. Returning home via family. Normal [facility] PHOSPHORUSon 02-01-2025 Phosphate [Mass/Vol] 2.3 mg/dL Normal 2.3-4.7 [facility] Comment on above: Performed By: #### L AB113, LAB17, [id number] ####Volunteer Services Assistant: JORGE A MALDONADO ([phone])[facility] ([facility])[address] [place] [address] Phosphate [Moles/Vol]on 01-18 Phosphate [Mass/Vol] 2.3 mg/dL 2.3 - 4 .7 mg/dL [facility] 30on 01-31-2025 30 Problem: Knowledge Deficit Goal: Patient/family/careg iver demonstrates understanding of disease process, treatment plan, medications, and discharge instructions Outcome: Progressing Problem: Hemodynamic Status Goal: Patient's vitals signs are stable Outcome: Progressing Problem: Excessive Fluid Volume Goal: Fluid and electrolyte balance are achieved/maintained Outcome: Progressing Problem: Inadequate Gas Exchange Goal: Patient is adequately oxygenated and ventilation is improved Outcome: Progressing Goal: Nutritional status is improving Outcome: Progressing Problem: Activity Intolerance/Impaired Mobility Goal: Mobility/activity is maintained at optimum level for patient Outcome: Progressing Problem: Nutrition Goal: Nutritional status is improving Outcome: Progressing Problem: Pain - Adult Goal: Verbalizes/displays adequate comfort level or baseline comfort level Outcome: Progressing Problem: Safety - Adult Goal: Free from fall injury Outcome: Progressing Problem: Problem Interventions Goal: Promote nutritional intake Outcome: Progressing Normal [facility] 30 Problem: Knowledge Deficit Goal: Patient/family/careg iver demonstrates understanding of disease process, treatment plan, medications, and discharge instructions Outcome: Progressing Problem: Hemodynamic Status Goal: Patient's vitals signs are stable Outcome: Progressing Problem: Excessive Fluid Volume Goal: Fluid and electrolyte balance are achieved/maintained Outcome: Progressing Problem: Inadequate Gas Exchange Goal: Patient is adequately oxygenated and ventilation is improved Outcome: Progressing Goal: Nutritional status is improving Outcome: Progressing Problem: Activity Intolerance/Impaired Mobility Goal: Mobility/activity is maintained at optimum level for patient Outcome: Progressing Problem: Nutrition Goal: Nutritional status is improving Outcome: Progressing Problem: Pain - Adult Goal: Verbalizes/displays adequate comfort level or baseline comfort level Outcome: Progressing Problem: Safety - Adult Goal: Free from fall injury Outcome: Progressing Problem: Problem Interventions Goal: Promote nutritional intake Outcome: Progressing Normal [facility] [id number] 01-31-2025 [id number] Care Managment Initial Assessment Date: 01/31/2025 Patient Name: Megan Nascimento : 1940 Patient Information Source of Information: Patient Cognition/Language: WFL - Within Functional Limits Permission given to speak with patient food service representative/careg iver as indicated: Yes Confirmation of Payer with patient/family: Yes Payer Name: [employer] Medicare advantage : No Confirmation of Primary Care Physician: Confirmed PCP Name: Dr Adonis Roth Seen in last 2 years?: Yes Primary Caregiver: Self If assistance needed, confirmed caregiver ready, willing and able to care for patient at discharge: Confirmed with: Living Arrangements Current Residence: Apartment Number of Floors 1 Number of Entry Steps: Bed/Bath Levels: Both first floor Facility: Facility Name: Plan to Return: Lives with: Alone Support Systems: Children, Family members, Friends/neighbors, export sales manager/social science teacher, Home care staff Activities of Daily Living Ambulation: Independent Bathing/Dressing: Independent Elimination/Continen ce/Toileting: Independent Feeding: Independent Who Assists with Activities of Daily Living: Instrumental Activities of Daily Living Prescription Coverage: Yes Pharmacy Used: [facility] Medication Management: Independent Transportation/Shopp ing: Independent Transportation Mode: Car Needs Assistance with Transportation at Discharge: No Meal Preparation: Independent Laundry/Cleaning: Independent Finances/Bill Paying: Independent Communication: Independent Types of Care Services/Equipment Utilized Care Services: (n/a) Dialysis Type: NA Durable Medical Equipment: Cane, Walker DME Provider: His daughter is his critical care registered nurse Patient's Goal/Discharge Plan Patient expects to be discharged to: home Discharge Planning Actions: Continue to follow Patient's Choice Rights and [employer] and Collaborative Relationships Disclosed as Indicated for Post-Acute Care: Interdisciplinary Team Engagement: Social Work Referral for: Additional Information: Went into room introduced self an role to pt. He appears to be A 0x 3. He came to ER with c/o retaining fluid. Found to be in CHF. Cardiology consulted. Started on IV lasix. Needs an echo. Wants to go home when stable, will follow for needs. . Nelly Pisano RN Normal [facility] CALCIUM, IONIZEDon CALCIUM IONIZED 4.60 mg/dL Normal 4.30-5.20 [facility] Comment on above: Performed By: #### L AB54 ####Volunteer Services Assistant: JORGE A MALDONADO ([phone])[facility])[address] [place] [address] PH, IONIZED CALCIUM 7.37 Normal 7.31-7.46 [facility] Comment on above: Performed By: #### L AB54 ####Volunteer Services Assistant: JORGE A MALDONADO ([phone])[facility])[address] [place] [address] CALCIUM IONIZED 4.10 mg/dL Low 4.30-5.20 [facility] Comment on above: Performed By: #### L AB54 ####Volunteer Services Assistant: JORGE A MALDONADO ([phone])[facility])[address] [place] [address] PH, IONIZED CALCIUM 7.43 Normal 7.31-7.46 [facility] Comment on above: Performed By: #### L AB54 ####Volunteer Services Assistant: JORGE A MALDONADO ([phone])[facility])[address] [place] [address] CBC (HEMOGRAM)on 01-31-2025 Erythrocyte distribution width (RBC) [Ratio] 19.4 % High 11.5-15.0 [facility] Comment on above: Performed By: #### L AB294 ####Volunteer Services Assistant: JORGE A MALDONADO ([phone])[address] Hematocrit (Bld) [Volume fraction] 45.5 % Normal 40.0-52.0 [facility] Comment on above: Performed By: #### L AB294 ####Volunteer Services Assistant: JORGE A MALDONADO ([phone])[facility])[address] [place] [address] Hemoglobin (Bld) [Mass/Vol] 14.6 g/dL Normal 13.0-18.0 [facility] Comment on above: Performed By: #### L AB294 ####Volunteer Services Assistant: JORGE A MALDONADO ([phone])[address] MCH (RBC) [Entitic mass] 28.5 pg Normal 26.0-34.0 [facility] Comment on above: Performed By: #### L AB294 ####Volunteer Services Assistant: JORGE A MALDONADO ([phone])[facility])[address] [place] [address] MCHC 32.1 % Normal 30.5-36.0 [facility] Comment on above: Performed By: #### L AB294 ####Volunteer Services Assistant: JORGE A MALDONADO ([phone])[address] MCV (RBC) [Entitic vol] 88.9 fL Normal 77.0-99.0 [facility] Comment on above: Performed By: #### L AB294 ####Volunteer Services Assistant: JORGE A MALDONADO ([phone])[address] Platelet mean volume (Bld) [Entitic vol] 9.8 fL Normal 9.0-12.7 [facility] Comment on above: Performed By: #### L AB294 ####Volunteer Services Assistant: JORGE A MALDONADO ([phone])[facility] ([facility])[address] [place] [address] Platelets (Bld) [#/Vol] 180 10*3/uL Normal 140-440 [facility] Comment on above: Performed By: #### L AB294 ####Volunteer Services Assistant: JORGE A MALDONADO ([phone])[facility])[address] [place] [address] RBC (Bld) [#/Vol] 5.12 10*6/uL Normal 4.40-5.90 [facility] Comment on above: Performed By: #### L AB294 ####Volunteer Services Assistant: JORGE A MALDONADO ([phone])[facility])[address] [place] [address] WBC (Bld) [#/Vol] 4.4 10*3/uL Normal 3.6-10.7 [facility] Comment on above: Performed By: #### L AB294 ####Volunteer Services Assistant: JORGE A MALDONADO ([phone])[facility] ([facility])[address] [place] [address] CBC panel Auto (Bld)on 01-31 Erythrocyte distribution width (RBC) [Ratio] 19.4 % High 11.5 - 15.0 % [facility] Hematocrit (Bld) [Volume fraction] 45.5 % 40.0 - 52.0 % [facility] Hemoglobin (Bld) [Mass/Vol] 14.6 g/dL 13.0 - 18.0 g/dL [facility] Interpretation and review of laboratory results Abnormal [facility] MCH (RBC) [Entitic mass] 28.5 pg 26. 0 - 34.0 pg [facility] MCHC (RBC) [Mass/Vol] 32.1 % 30.5 - 36.0 % [facility] MCV (RBC) [Entitic vol] 88.9 fL 77.0 - 99.0 fL [facility] Platelet mean volume (Bld) [Entitic vol] 9.8 fL 9.0 - 12.7 fL [facility] Platelets (Bld) [#/Vol] 180 10*3/uL 140 - 440 10*3/uL [facility] RBC (Bld) [#/Vol] 5.12 10*6/uL 4.40 - 5.9 0 10*6/uL [facility] WBC (Bld) [#/Vol] 4.4 10*3/uL 3.6 - 10.7 10*3/uL [facility] COMPREHENSIVE METABOLIC PANE Greg 01-31-2025 Albumin [Mass/Vol] 3.5 g/dL Normal 3.4-4.8 [facility] Comment on above: Performed By: #### L AB17, [id number], [id number] ####Volunteer Services Assistant: JORGE A MALDONADO ([phone])[facility] ([facility])[address] [place] [address] ALP [Catalytic activity/Vol] 106 U/L Normal 40-150 [facility] Comment on above: Performed By: #### L AB17, [id number], [id number] ####Volunteer Services Assistant: JORGE A MALDONADO ([phone])[facility] ([facility])[address] [place] [address] ALT [Catalytic activity/Vol] 14 U/L Normal <40 [facility] Comment on above: Performed By: #### Russell AB17, QPO040, [id number] ####Volunteer Services Assistant: JORGE A MALDONADO ([phone])[facility] ([facility])[address] [place] [address] Anion gap [Moles/Vol] 14 mmol/L High 3-13 [facility] Comment on above: Performed By: #### L AB17, [id number], VBK169 ####Volunteer Services Assistant: JORGE A MALDONADO ([phone])[facility] ([facility])[address] [place] [address] AST [Catalytic activity/Vol] 28 U/L Normal <34 [facility] Comment on above: Performed By: #### L AB17, GYY534, PER602 ####Volunteer Services Assistant: JORGE A MALDONADO ([phone])[facility] ([facility])[address] [place] [address] Bilirubin [Mass/Vol] 1.6 mg/dL High <1.2 [facility] Comment on above: Performed By: #### L AB17, OFY957, OBM326 ####Volunteer Services Assistant: JORGE A MALDONADO ([phone])[facility])[address] [place] [address] Calcium [Mass/Vol] 9.6 mg/dL Normal 8.8-10.0 [facility] Comment on above: Performed By: #### L AB17, FJX009, QJH786 ####Volunteer Services Assistant: JORGE A MALDONADO ([phone])[facility] ([facility])[address] [place] [address] Chloride [Moles/Vol] 103 mmol/L Normal 98-107 [facility] Comment on above: Performed By: #### Russell AB17, RIQ526, ZGL323 ####Volunteer Services Assistant: JORGE A MALDONADO ([phone])[facility])[address] [place] [address] CO2 [Moles/Vol] 23 mmol/L Normal 23-31 [facility] Comment on above: Performed By: #### Russell AB17, OUD820, QBL745 ####Volunteer Services Assistant: JORGE A MALDONADO ([phone])[facility])[address] [place] [address] Creatinine [Mass/Vol] 1.88 mg/dL High 0.72-1.[address] [facility] Comment on above: Performed By: #### Russell AB17, SYE108, YCY813 ####Volunteer Services Assistant: JORGE A MALDONADO ([phone])[facility])[address] [place] [address] [place] GLOMERULAR FILTRATION RATE ML/MIN/1.73 SQ M.PREDICTED 34.6 mL/min/1.73m*2 Low >60.0 [facility] Comment on above: Result Comment: Calc ulation based on the Chronic Kidney Disease Epidemiology Collaboration (CKD-EPI) equation refit without adjustment for race Performed By: #### L AB17, JEP084, JHQ022 ####Volunteer Services Assistant: JORGE A MALDONADO ([phone])[facility])[address] [place] [address] Glucose [Mass/Vol] 121 mg/dL High 82-115 [facility] Comment on above: Performed By: #### L AB17, ZGY921, PMG793 ####Volunteer Services Assistant: JORGE A MALDONADO ([phone])[facility] [place] [address] Potassium [Moles/Vol] 4.0 mmol/L Normal 3.5-5.[address] [facility] Comment on above: Result Comment: [facility] potassium values may be up to 0.5 mmol/L lower than serum values. Performed By: #### L AB17, GKT763, CHO234 ####Volunteer Services Assistant: JORGE A MALDONADO ([phone])[facility] ([facility])[address] [place] [address] Protein [Mass/Vol] 6.6 g/dL Normal 6.4-8.3 [facility] Comment on above: Performed By: #### L AB17, LEQ522, AID813 ####Volunteer Services Assistant: JORGE A MALDONADO ([phone])[facility] [place] [address] [place] Sodium [Moles/Vol] 140 mmol/L Normal 136-145 [facility] Comment on above: Performed By: #### L AB17, MJN962, [id number] ####Volunteer Services Assistant: JORGE A MALDONADO ([phone])[facility] [place] [address] [place] Urea nitrogen [Mass/Vol] 31 mg/dL High 9-23 [facility] Comment on above: Performed By: #### L AB17, KCL862, WWO651 ####Volunteer Services Assistant: JORGE A MALDONADO ([phone])[facility] ([facility])[address] [place] [address] [place] Albumin [Mass/Vol] 3.3 g/dL Low 3.4-4.8 [facility] Comment on above: Performed By: #### L AB113, LAB17, [id number] ####Volunteer Services Assistant: JORGE A MALDONADO ([phone])[facility])[address] [place] [address] ALP [Catalytic activity/Vol] 97 U/L Normal 40-150 [facility] Comment on above: Performed By: #### Russell ABNakul, LAB17, MHD302 ####Volunteer Services Assistant: JORGE A MALDONADO ([phone])[facility] [place] [address] ALT [Catalytic activity/Vol] 11 U/L Normal <40 [facility] Comment on above: Performed By: #### L AB113, LAB17, QTI328 ####Volunteer Services Assistant: JORGE A MALDONADO ([phone])[facility] ([facility])[address] [place] [address] Anion gap [Moles/Vol] 8 mmol/L Normal 3-13 [facility] Comment on above: Performed By: #### Russell ABNakul, LAB17, YKR202 ####Volunteer Services Assistant: JORGE A MALDONADO ([phone])[facility] ([facility])[address] [place] [address] AST [Catalytic activity/Vol] 30 U/L Normal <34 [facility] Comment on above: Performed By: #### Russell ABNakul, LAB17, FTI633 ####Volunteer Services Assistant: JORGE A MALDONADO ([id number])[facility] ([facility])[address] [place] [address] Bilirubin [Mass/Vol] 1.5 mg/dL High <1.2 [facility] Comment on above: Performed By: #### Russell ABNakul, LAB17, NMF617 ####Volunteer Services Assistant: JORGE A MALDONADO ([phone])[facility] ([facility])[address] [place] [address] [place] Calcium [Mass/Vol] 9.0 mg/dL Normal 8.8-10.0 [facility] Comment on above: Performed By: #### L AB113, LAB17, VNW027 ####Volunteer Services Assistant: JORGE A MALDONADO ([phone])[facility] ([facility])[address] [place] [address] [place] Chloride [Moles/Vol] 105 mmol/L Normal 98-107 [facility] Comment on above: Performed By: #### L AB113, LAB17, KMQ202 ####Volunteer Services Assistant: JORGE A MALDONADO ([phone])[facility])[address] [place] [address] CO2 [Moles/Vol] 27 mmol/L Normal 23-31 [facility] Comment on above: Performed By: #### L AB113, LAB17, KMW640 ####Volunteer Services Assistant: JORGE A MALDONADO ([phone])[facility])[address] [place] [address] Creatinine [Mass/Vol] 1.94 mg/dL High 0.72-1.[address] [facility] Comment on above: Performed By: #### L AB113, LAB17, FWX733 ####Volunteer Services Assistant: JORGE A MALDONADO ([phone])[facility])[address] [place] [address] GLOMERULAR FILTRATION RATE ML/MIN/1.73 SQ M.PREDICTED 33.3 mL/min/1.73m*2 Low >60.0 [facility] Comment on above: Result Comment: Calc ulation based on the Chronic Kidney Disease Epidemiology Collaboration (CKD-EPI) equation refit without adjustment for race Performed By: #### L AB113, LAB17, [id number] ####Volunteer Services Assistant: JORGE A MALDONADO ([phone])[facility])[address] [place] [address] Glucose [Mass/Vol] 130 mg/dL High 82-115 [facility] Comment on above: Performed By: #### L AB113, LAB17, VAN137 ####Volunteer Services Assistant: JORGE A MALDONADO ([phone])[facility])[address] [place] [address] Potassium [Moles/Vol] 3.6 mmol/L Normal 3.5-5.[address] [facility] Comment on above: Result Comment: [facility] potassium values may be up to 0.5 mmol/L lower than serum values. Performed By: #### L AB113, LAB17, [id number] ####Volunteer Services Assistant: JORGE A MALDONADO ([phone])[facility] ([facility])[address] [place] [address] Protein [Mass/Vol] 6.5 g/dL Normal 6.4-8.3 [facility] Comment on above: Performed By: #### L AB113, LAB17, [id number] ####Volunteer Services Assistant: JORGE A MALDONADO ([phone])[facility] ([facility])[address] [place] [address] Sodium [Moles/Vol] 140 mmol/L Normal 136-145 [facility] Comment on above: Performed By: #### L AB113, LAB17, DOF689 ####Volunteer Services Assistant: JORGE A MALDONADO ([phone])[facility] ([facility])[address] [place] [address] Urea nitrogen [Mass/Vol] 30 mg/dL High 9-23 [facility] Comment on above: Performed By: #### L AB113, LAB17, [id number] ####Volunteer Services Assistant: JORGE A MALDONADO ([phone])[facility] ([facility])[address] [place] [address] Calcium.ionized [Moles/Vol]o n 01-31-2025 Calcium.ionized (Bld) [Moles/Vol] 4.6 mg/dL 4.30 - 5.20 mg/dL [facility] Interpretation and review of laboratory results Normal [facility] PH, IONIZED CALCIUM 7.37 7.31 - 7.46 [facility] Calcium.ionized [Moles/Vol]O rdered By: Lev Milian on 01-31-2025 Calcium.ionized (Bld) [Moles/Vol] 4.1 mg/dL Low 4.30 - 5.20 mg/dL [facility] Interpretation and review of laboratory results Abnormal [facility] PH, IONIZED CALCIUM 7.43 7.31 - 7.46 [facility] Comprehensive metabolic 1998 panelon 01-31-2025 Albumin [Mass/Vol] 3.5 g/dL 3.4 - 4.8 g/dL [facility] ALP [Catalytic activity/Vol] 106 U/L 40 - 150 U/L [facility] ALT [Catalytic activity/Vol] 14 U/L NINF - 40 U/L [facility] Anion gap [Moles/Vol] 14 mmol/L High 3 - 13 mmol/L [facility] AST [Catalytic activity/Vol] 28 U/L NINF - 34 U/L [facility] Bilirubin [Mass/Vol] 1.6 mg/dL High NINF - 1.2 mg/dL [facility] Calcium [Mass/Vol] 9.6 mg/dL 8.8 - 10. 0 mg/dL [facility] Chloride [Moles/Vol] 103 mmol/L 98 - 10 7 mmol/L [facility] CO2 [Moles/Vol] 23 mmol/L 23 - 31 mmol/L [facility] Creatinine [Mass/Vol] 1.88 mg/dL High 0.72 - 1.25 mg/dL [facility] GFR/1.73 sq M.predicted (S/P/Bld) [Vol rate/Area] 34.6 mL/min Low - PINF [facility] Comment on above: Calculation based on the Chronic Kidney Disease Epidemiology Collaboration (CKD-EPI) equation refit without adjustment for race Glucose [Mass/Vol] 121 mg/dL High 82 - 115 mg/dL [facility] Interpretation and review of laboratory results Abnormal [facility] Potassium [Moles/Vol] 4 mmol/L 3.5 - 5.1 mmol/L [facility] Comment on above: Plasma potassium erika ues may be up to 0.5 mmol/L lower than serum values. Protein [Mass/Vol] 6.6 g/dL 6.4 - 8.3 g/dL [facility] Sodium [Moles/Vol] 140 mmol/L 136 - 145 mmol/L [facility] Urea nitrogen [Mass/Vol] 31 mg/dL High 9 - 23 mg/d L [facility] Center Albumin [Mass/Vol] 3.3 g/dL Low 3.4 - 4.8 g/dL [facility] ALP [Catalytic activity/Vol] 97 U/L 40 - 150 U/L [facility] ALT [Catalytic activity/Vol] 11 U/L NINF - 40 U/L [facility] Anion gap [Moles/Vol] 8 mmol/L 3 - 13 mmol/L [facility] AST [Catalytic activity/Vol] 30 U/L NINF - 34 U/L [facility] Bilirubin [Mass/Vol] 1.5 mg/dL High NINF - 1.2 mg/dL [facility] Calcium [Mass/Vol] 9 mg/dL 8.8 - 10. 0 mg/dL [facility] Chloride [Moles/Vol] 105 mmol/L 98 - 10 7 mmol/L [facility] CO2 [Moles/Vol] 27 mmol/L 23 - 31 mmol/L [facility] Creatinine [Mass/Vol] 1.94 mg/dL High 0.72 - 1.25 mg/dL [facility] GFR/1.73 sq M.predicted (S/P/Bld) [Vol rate/Area] 33.3 mL/min Low - PINF [facility] Comment on above: Calculation based on the Chronic Kidney Disease Epidemiology Collaboration (CKD-EPI) equation refit without adjustment for race Glucose [Mass/Vol] 130 mg/dL High 82 - 115 mg/dL [facility] Potassium [Moles/Vol] 3.6 mmol/L 3.5 - 5.1 mmol/L [facility] Comment on above: Plasma potassium erika ues may be up to 0.5 mmol/L lower than serum values. Protein [Mass/Vol] 6.5 g/dL 6.4 - 8.3 g/dL [facility] Sodium [Moles/Vol] 140 mmol/L 136 - 145 mmol/L [facility] Urea nitrogen [Mass/Vol] 30 mg/dL High 9 - 23 mg/d L [facility] Laboratory - Chemistry and C hemistry - challengeon 01-31-2025 Glucose [Mass/Vol] 114 mg/dL High 70 - 100 mg/dL [facility] Magnesium [Mass/Vol] 2.2 mg/dL 1.6 - 2 .6 mg/dL [facility] Glucose [Mass/Vol] 121 mg/dL High 70 - 100 mg/dL [facility] Magnesium [Mass/Vol] 2.2 mg/dL 1.6 - 2 .6 mg/dL [facility] Glucose [Mass/Vol] 124 mg/dL High 70 - 100 mg/dL [facility] Glucose [Mass/Vol] 141 mg/dL High 70 - 100 mg/dL [facility] MAGNESIUMon 01-31-2025 Magnesium [Mass/Vol] 2.2 mg/dL Normal 1.6-2.6 [facility] Comment on above: Result Comment: MIO R COMMENTS: Higher values can be expected in females during menses. Performed By: #### L AB17, [id number], [id number] ####Volunteer Services Assistant: JORGE A MALDONADO ([phone])[facility] ([facility])[address] [place] [address] Magnesium [Mass/Vol] 2.2 mg/dL Normal 1.6-2.6 [facility] Comment on above: Result Comment: MIO Klein COMMENTS: Higher values can be expected in females during menses. Performed By: #### L AB113, [id number], [id number] ####Volunteer Services Assistant: JORGE A MALDONADO ([phone])[facility] ([facility])[address] [place] [address] Magnesium [Mass/Vol]on 01-31 Higher values can be expected in females during menses. [facility] Interpretation and review of laboratory results Normal [facility] Higher values can be expected in females during menses. [facility] [employer] No Panel Informationon 01-31 Interpretation and review of laboratory results Abnormal [facility] Performed by: [place] [address] CLIA ID: [id number] [facility] Interpretation and review of laboratory results Normal [facility] Interpretation and review of laboratory results Abnormal [facility] Performed by: [place] [address] CLIA ID: [id number] [facility] Interpretation and review of laboratory results Abnormal [facility] Interpretation and review of laboratory results Abnormal [facility] Performed by: [place] [address] CLIA ID: [id number] [facility] Interpretation and review of laboratory results Abnormal [facility] Performed by: [address] [address] CLIA ID: [id number] [facility] Nursing Noteon 01-31-2025 Nursing Note Wound Care consulted for Pressure Injury Prevention. Pt's Simon score = 21 on 01/30/2025 at this time the pt is no longer at risk per Simon Scale. Pt in bed for assessment, turned for posterior assessment independently. Pt's pressure points assessed: Pt's Heels, Buttocks/Sacrum/Cocc yx, Back, Elbows, Occiput and Ears are all blanching and intact. Bilateral Heels (edema noted) and Coccyx see media image. Pt denies pain. Instructed pt on pressure injury prevention and importance of turning/postioning every 2 hrs while in bed and every 15 min while sitting in chair. Pt verbalized understanding. Assisted pt to restroom with wheeled walker and returned to bed (see below for additional care given). Prevention Measures in place, including: [place] sheet with pillows (in place), Pt declined Bilateral foam heel protectors, off loading heels on pillows, Sacral foam and, Zinc/Moisture Barrier ointment. Moisture absorbant pad (in place), Bed Alarm On. Skin Care precaution order set in place d/t Simon score 18 on 01/28/2025. Dietitian consult in place. PT consult NA Simon > 3. D/W stack yield engineer skin assessment, preventions, and interventions implemented. Will continue to follow pt. Please Voicera for any questions or concerns. Saundra Vinson, RN, BSN Normal [facility] PHOSPHORUSon 01-31-2025 Phosphate [Mass/Vol] 2.3 mg/dL Normal 2.3-4.7 [facility] Comment on above: Performed By: #### L AB17, [id number], [id number] ####Volunteer Services Assistant: JORGE A MALDONADO ([phone])[address] Phosphate [Mass/Vol] 2.2 mg/dL Low 2.3-4.7 [facility] Comment on above: Performed By: #### L AB113, [id number], [id number] ####Volunteer Services Assistant: JORGE A MALDONADO ([phone])[facility])[address] [place] [address] Phosphate [Moles/Vol]on 01-18 Phosphate [Mass/Vol] 2.3 mg/dL 2.3 - 4 .7 mg/dL [facility] Phosphate [Mass/Vol] 2.2 mg/dL Low 2.3 - 4 .7 mg/dL [facility] US Heart TransthoracicOrdere d By: Jarret Weldon on 01-31-2025 Aortic Sinus Valsalva 3.8 cm [facility] Work Phone: Aortic Sinus Valsalva Index 1.93 cm/m2 [facility] Work Phone: Aortic valve Mean systole pressure gradient by US.doppler derived full Bernoulli 3 mmHg [facility] Work Phone: Aortic valve Orifice area by US 4.5 cm2 [facility] Work Phone: Aortic valve Peak systolic flow by US.doppler 0.8 m/s [facility] Work Phone: AR Max Velocity PISA 3.6 m/s [facility] Work Phone: AR PHT 483.6 ms [facility] Work Phone: Ascending Aorta 4.3 cm [facility] Work Phone: Ascending Aorta Index 2.18 cm/m2 [facility] Work Phone: AV Area by Peak Velocity 1.5 cm2 [facility] Work Phone: AV Area by Planimetry 1.7 cm2 [facility] Work Phone: AV Area by VTI 1.4 cm2 [facility] Work Phone: AV Peak Gradient 6 mmHg [facility] Work Phone: AV Peak Velocity 1.2 m/s [facility] Work Phone: AV Velocity Ratio 0.33 [facility] Work Phone: AV VTI 26.1 cm [facility] Work Phone: BRITTA/BSA 0.86 cm2/m2 [facility] Work Phone: BRITTA/BSA Peak Velocity 0.8 cm2/m2 [facility] Work Phone: BRITTA/BSA VTI 0.7 cm2/m2 [facility] Work Phone: E/E' Septal 18.6 [facility] Work Phone: Est. RA Pressure 15 mmHg [facility] Work Phone: [phone] Fractional Shortening 2D 6 % 28 - 44 % [facility] [employer] Work Phone: Interpretation and review of laboratory results Abnormal [facility] Work Phone: IVC Diameter 2.7 cm [facility] Work Phone: [phone] IVSd 1.1 cm Abnormal 0.6 - 1.0 cm [facility] Work Phone: [phone] LA Diameter 5.6 cm [facility] Work Phone: [phone] LA Size Index 2.84 cm/m2 [facility] [employer] Work Phone: [phone] LA Volume 2C 97 mL Abnormal 18 - 58 mL [facility] Work Phone: [phone] LA Volume 4C 110 mL Abnormal 18 - 58 mL [facility] [employer] Phone: LA Volume A/L [address] [facility] Work Phone: LA Volume BP 109 mL Abnormal 18 - 58 mL [facility] [employer] Work Phone: LA Volume Index 2C 49 mL/m2 Abnormal 16 - 34 mL/m2 [facility] [employer] Work Phone: [phone] LA Volume Index 4C 56 mL/m2 Abnormal 16 - 34 mL/m2 [facility] [employer] Work Phone: LA Volume Index A/L 58 mL/m2 16 - 34 mL/m2 [facility] [employer] Phone: LA Volume Index BP 55 ml/m2 Abnormal 16 - 34 ml/m2 [facility] [employer] Work Phone: Left ventricular Ejection fraction by US.2D+Calculated by biplane method of disks 12 % Abnormal 55 - 100 % [facility] Work Phone: [phone] LV E' Septal Velocity 5 cm/s [facility] [employer] Work Phone: [phone] LV EDV A2C 212 mL [facility] [employer] Work Phone: [phone] LV EDV A4C 181 mL [facility] [employer] Work Phone: [phone] LV EDV BP 197 mL Abnormal 67 - 155 mL [facility] [employer] Work Phone: LV EDV Index A2C 108 mL/m2 [facility]th Work Phone: LV EDV Index A4C 92 mL/m2 [facility] Work Phone: LV EDV Index BP 100 mL/m2 [facility] Work Phone: LV Ejection Fraction A2C 16 % [facility] Work Phone: LV Ejection Fraction A4C 9 % [facility] Work Phone: LV ESV A2C 178 mL [facility] Work Phone: LV ESV A4C 165 mL [facility] Work Phone: LV ESV BP 173 mL Abnormal 22 - 58 mL [facility] Work Phone: LV ESV Index A2C 90 mL/m2 [facility] Work Phone: LV ESV Index A4C 84 mL/m2 [facility] Work Phone: LV ESV Index BP 88 mL/m2 [facility] Work Phone: LV Mass 2D 234.8 g Abnormal 88 - 224 g [facility] Work Phone: LV Mass 2D Index 119.2 g/m2 Abnormal 49 - 115 g/m2 [facility] Work Phone: LV RWT Ratio 0.41 [facility] Work Phone: LVIDd 5.4 cm 4.2 - 5.9 cm [facility] Work Phone: LVIDd Index 2.74 cm/m2 [facility] Work Phone: LVIDs 5.1 cm [facility] Work Phone: LVIDs Index 2.59 cm/m2 [facility] Work Phone: LVOT Cardiac Output 2.7 liter/minute [facility] Work Phone: LVOT Diameter 2.[address] [facility] Work Phone: LVOT Mean Gradient 0 mmHg [facility] Work Phone: LVOT Peak Gradient 1 mmHg [facility] [employer] Work Phone: LVOT Peak Velocity 0.4 m/s [facility] Work Phone: LVOT Stroke Volume Index 19.5 mL/m2 [facility] Work Phone: LVOT SV 38.4 ml [facility] Work Phone: LVOT VTI 8.5 cm [facility] Work Phone: LVOT:AV VTI Index 0.33 [facility] ealth Work Phone: LVPWd 1.1 cm Abnormal 0.6 - 1.0 cm [facility] Work Phone: MV A Velocity 0.36 m[facility] Work Phone: MV E Velocity 0.93 m[facility] Work Phone: MV E Wave Deceleration Time 185.6 ms [facility] [employer] Work Phone: MV E/A 2.58 [facility] [employer] Work Phone: RA Area 4C 144.7 mL [facility] [employer] Work Phone: RV Basal Dimension 4.9 cm [facility] [employer] Work Phone: RV Free Wall Peak S' 11 cm/s [facility] [employer] Work Phone: RV Longitudinal Dimension 7.3 cm [facility] Work Phone: RV Mid Dimension 3.2 cm [facility] Work Phone: RVSP 50 mmHg [facility] Work Phone: TAPSE 2 cm 1.7 cm [facility] Work Phone: TR Max Velocity 2.94 m[facility]s [facility] Work Phone: TR Peak Gradient 35 mmHg [facility] Work Phone: TR Peak Velocity PISA 2.5 m/s [facility] Work Phone: TR VTI 82.7 cm [facility] [employer] Work Phone: TV EROA 0.4 cm2 [employer] Work Phone: TV Nyquist Velocity 42 cm/s [employer] Work Phone: [employer] Work Phone: [facility] Transthoracicon Left Ventricle: Left ventricle size is normal. Mildly increased wall thickness. Severely reduced left ventricular systolic function. EF by 2D Simpsons Biplane is 12%. Severe global hypokinesis present. See diagram for wall motion findings. Abnormal dyskinetic wall motion may be due to RV pacing. Septal motion is consistent with pacing. Right Ventricle: Right ventricle is mildly dilated. Lead present in the right ventricle. Low normal systolic function. Aortic Valve: Mild to moderate (1-2+) regurgitation with an eccentrically directed jet. Mild stenosis of the aortic valve. AV mean gradient is 3 mmHg. AV peak velocity is 1.2 m/s. LVOT:AV VTI Index is 0.33. AV area by continuity VTI is 1.4 cm2. AV Area by Planimetry is 1.7 cm2. Mitral Valve: Mildly thickened leaflets. Mild (1+) regurgitation. Tricuspid Valve: Moderate (2+) regurgitation with an eccentrically directed jet. Both central and toward septum. Moderately elevated RVSP. Est RA pressure is 15 mmHg. RVSP is 50 mmHg. Left Atrium: Left atrium is severely dilated. LA Vol Index A/L is 58 mL/m2. Right Atrium: Right atrium is severely dilated. Lead present in the right atrium. Aorta: Normal sized sinuses of Valsalva. Moderately dilated ascending aorta. Ao ascending diameter is 4.3 cm. Compared to report of 02/2022 the LVEF has decreased from 30-35% to about 10%. Left Ventricle Left ventricle size is normal. Mildly increased wall thickness. Severely reduced left ventricular systolic function. EF by 2D Simpsons Biplane is 12%. Severe global hypokinesis present. See diagram for wall motion findings. Abnormal dyskinetic wall motion may be due to RV pacing. Indeterminate diastolic function due to atrial fibrillation. Septal motion is consistent with pacing. Right Ventricle Right ventricle is mildly dilated. Lead present in the right ventricle.Low normal systolic function. Left Atrium Left atrium is severely dilated. LA Vol Index A/L is 58 mL/m2. Right Atrium Right atrium is severely dilated. Lead present in the right atrium. IVC/SVC IVC diameter is dilated and decreases less than 50% during inspiration; therefore the estimated right atrial pressure is elevated (~15 mmHg). Mitral Valve Mildly thickened leaflets. Mild (1+) regurgitation. No stenosis noted. Tricuspid Valve Valve structure is normal. Moderate (2+) regurgitation with an eccentrically directed jet. Both central and toward septum. Moderately elevated RVSP. Est RA pressure is 15 mmHg. RVSP is 50 mmHg. Aortic Valve Trileaflet. Thickened cusps. Calcified cusps. Mild to moderate (1-2+) regurgitation with an eccentrically directed jet. Mild stenosis of the aortic valve. AV mean gradient is 3 mmHg. AV peak velocity is 1.2 m/s. LVOT:AV VTI Index is 0.33. AV area by continuity VTI is 1.4 cm2. AV Area by Planimetry is 1.7 cm2. Restricted opening. Pulmonic Valve Valve structure is normal. Trace regurgitation. Ascending Aorta Normal sized sinuses of Valsalva. Moderately dilated ascending aorta. Ao ascending diameter is 4.3 cm. Pericardium No pericardial effusion. Septum No interatrial shunt visualized on color Doppler. Study Details Image quality: good. Blood pressure: 132/85 mmHg. The underlying ECG rhythm was atrial fibrillation. Cardiac history: PPM/AICD. Ultrasound enhancement agent was given to enhance imaging. Wall Scoring Baseline Score Index: 2.65 The following segments are dyskinetic: basal inferoseptal, mid anteroseptal, mid inferoseptal and apical lateral. The following segments are akinetic: mid inferolateral, mid anterolateral and apex. The following segments are hypokinetic: basal anterior, basal anteroseptal, basal inferior, basal inferolateral, basal anterolateral, mid anterior, mid inferior, apical anterior, apical septal and apical inferior. [facility]-2025 30 Problem: Hemodynamic Status Goal: Patient's vitals signs are stable Flowsheets (Taken 01/30/2025 105) Patient's vital signs are stable: Assess and monitor patient's heart rate, rhythm, respiratory rate, peripheral pulses, capillary refill, color, body temperature, intake and output, labs and physical activity tolerance Observe for signs of chest pain (note location, duration, severity, radiation and associated symptoms such as diaphoresis, nausea, indigestion) Monitor for signs and symptoms of heart failure (e.g. shortness of breath, edema of feet/ankles/legs, rapid irregular heart rate, coughing, wheezing, white/pink blood tinged sputum, sudden weight gain, chest pain) Collaborate with interdisciplinary team and initiate plan and interventions as ordered Position patient for maximum circulation/cardiac output Monitor fluid intake Problem: Safety - Adult Goal: Free from fall injury Outcome: Progressing Note: Side rails upx2, bed low, brakes on, call light in reach. Normal [facility] CALCIUM, IONIZEDon CALCIUM IONIZED 4.30 mg/dL Normal 4.30-5.20 [facility] Comment on above: Performed By: #### L AB54 ####Volunteer Services Assistant: JORGE A MALDONADO ([phone])[address] PH, IONIZED CALCIUM 7.39 Normal 7.31-7.46 [facility] Comment on above: Performed By: #### L AB54 ####Volunteer Services Assistant: JORGE A MALDONADO ([phone])[facility])[address] [place] [address] CALCIUM IONIZED 4.50 mg/dL Normal 4.30-5.20 [facility] Comment on above: Performed By: #### L AB54 ####Volunteer Services Assistant: JORGE A MALDONADO ([phone])[address] PH, IONIZED CALCIUM 7.35 Normal 7.31-7.46 [facility] Comment on above: Performed By: #### L AB54 ####Volunteer Services Assistant: JORGE A MALDONADO ([phone])[address] CBC (HEMOGRAM)on 01-30-2025 Erythrocyte distribution width (RBC) [Ratio] 19.5 % High 11.5-15.0 [facility] Comment on above: Performed By: #### L AB294 ####Volunteer Services Assistant: JORGE A MALDONADO ([phone])[place] [address] [place] Hematocrit (Bld) [Volume fraction] 45.8 % Normal 40.0-52.0 [facility] Comment on above: Performed By: #### L AB294 ####Volunteer Services Assistant: JORGE A MALDONADO ([phone])[facility])[address] [place] [address] Hemoglobin (Bld) [Mass/Vol] 14.9 g/dL Normal 13.0-18.0 [facility] Comment on above: Performed By: #### L AB294 ####Volunteer Services Assistant: JORGE A MALDONADO ([phone])[facility])[address] [place] [address] MCH (RBC) [Entitic mass] 28.9 pg Normal 26.0-34.0 [facility] Comment on above: Performed By: #### L AB294 ####Volunteer Services Assistant: JORGE A MALDONADO ([phone])[facility])[address] [place] [address] MCHC 32.5 % Normal 30.5-36.0 [facility] Comment on above: Performed By: #### L AB294 ####Volunteer Services Assistant: JORGE A MALDONADO ([phone])[facility] ([facility])[address] [place] [address] MCV (RBC) [Entitic vol] 88.8 fL Normal 77.0-99.0 S [facility] Comment on above: Performed By: #### L AB294 ####Volunteer Services Assistant: JORGE A MALDONADO ([phone])[facility])[address] [place] [address] Platelet mean volume (Bld) [Entitic vol] 10.6 fL Normal 9.0-12.7 [facility] Comment on above: Performed By: #### L AB294 ####Volunteer Services Assistant: JORGE A MALDONADO ([id number])[facility])[address] [place] [address] Platelets (Bld) [#/Vol] 205 10*3/uL Normal 140-440 [facility] Comment on above: Performed By: #### L AB294 ####Volunteer Services Assistant: JORGE A MALDONADO ([phone])[address] RBC (Bld) [#/Vol] 5.16 10*6/uL Normal 4.40-5.90 [facility] Comment on above: Performed By: #### L AB294 ####Volunteer Services Assistant: JORGE A MALDONADO ([phone])[facility])[address] [place] [address] WBC (Bld) [#/Vol] 5.0 10*3/uL Normal 3.6-10.7 [facility] Comment on above: Performed By: #### L AB294 ####Volunteer Services Assistant: JORGE A MALDONADO ([phone])[address] CBC panel Auto (Bld)on 01-30 Erythrocyte distribution width (RBC) [Ratio] 19.5 % High 11.5 - 15.0 % [facility] Hematocrit (Bld) [Volume fraction] 45.8 % 40.0 - 52.0 % [facility] Hemoglobin (Bld) [Mass/Vol] 14.9 g/dL 13.0 - 18.0 g/dL [facility] Interpretation and review of laboratory results Abnormal [facility] MCH (RBC) [Entitic mass] 28.9 pg 26. 0 - 34.0 pg [facility] MCHC (RBC) [Mass/Vol] 32.5 % 30.5 - 36.0 % [facility] MCV (RBC) [Entitic vol] 88.8 fL 77.0 - 99.0 fL [facility] Platelet mean volume (Bld) [Entitic vol] 10.6 fL 9.0 - 12.7 fL [facility] Platelets (Bld) [#/Vol] 205 10*3/uL 140 - 440 10*3/uL [facility] RBC (Bld) [#/Vol] 5.16 10*6/uL 4.40 - 5.9 0 10*6/uL [facility] WBC (Bld) [#/Vol] 5 10*3/uL 3.6 - 10.7 10*3/uL [facility] METABOLIC PANE Greg 01-30-2025 Albumin [Mass/Vol] 3.5 g/dL Normal 3.4-4.8 [facility] Comment on above: Performed By: #### L AB17, [id number], [id number] ####Volunteer Services Assistant: JORGE A MALDONADO ([phone])[facility] ([facility])[address] [place] [address] ALP [Catalytic activity/Vol] 103 U/L Normal 40-150 [facility] Comment on above: Performed By: #### L AB17, [id number], [id number] ####Volunteer Services Assistant: JORGE A MALDONADO ([id number])[facility] ([facility])[address] [place] [address] ALT [Catalytic activity/Vol] 12 U/L Normal <40 [facility] Comment on above: Performed By: #### L AB17, [id number], [id number] ####Volunteer Services Assistant: JORGE A MALDONADO ([phone])[facility] ([facility])[address] [place] [address] Anion gap [Moles/Vol] 14 mmol/L High 3-13 [facility] Comment on above: Performed By: #### L AB17, [id number], [id number] ####Volunteer Services Assistant: JORGE A MALDONADO ([id number])[facility] ([facility])[address] [place] [address] AST [Catalytic activity/Vol] 27 U/L Normal <34 [facility] Comment on above: Performed By: #### L AB17, [id number], [id number] ####Volunteer Services Assistant: JORGE A MALDONADO ([phone])[facility] ([facility])[address] [place] [address] Bilirubin [Mass/Vol] 1.5 mg/dL High <1.2 [facility] Comment on above: Performed By: #### L AB17, [id number], [id number] ####Volunteer Services Assistant: JORGE A MALDONADO ([phone])[facility] ([facility])[address] [place] [address] Calcium [Mass/Vol] 9.1 mg/dL Normal 8.8-10.0 [facility] Comment on above: Performed By: #### L AB17, [id number], [id number] ####Volunteer Services Assistant: JORGE A MALDONADO ([id number])[facility] [place] [address] Chloride [Moles/Vol] 106 mmol/L Normal 98-107 [facility] Comment on above: Performed By: #### L AB17, [id number], [id number] ####Volunteer Services Assistant: JORGE A MALDONADO ([phone])[facility] ([facility])[address] [place] [address] CO2 [Moles/Vol] 21 mmol/L Low 23-31 [facility] Comment on above: Performed By: #### Russell AB17, [id number], [id number] ####Volunteer Services Assistant: JORGE A MALDONADO ([phone])[facility] ([facility])[address] [place] [address] Creatinine [Mass/Vol] 1.95 mg/dL High 0.72-1.25 [facility] Comment on above: Performed By: #### Russell AB17, [id number], [id number] ####Volunteer Services Assistant: JORGE A MALDONADO ([phone])[facility] ([facility])[address] [place] [address] [place] GLOMERULAR FILTRATION RATE ML/MIN/1.73 SQ M.PREDICTED 33.1 mL/min/1.73m*2 Low >60.0 [facility] Comment on above: Result Comment: Calc ulation based on the Chronic Kidney Disease Epidemiology Collaboration (CKD-EPI) equation refit without adjustment for race Performed By: #### L AB17, [id number], [id number] ####Volunteer Services Assistant: JORGE A MALDONADO ([phone])[facility] ([facility])[address] [place] [address] [place] Glucose [Mass/Vol] 144 mg/dL High 82-115 [facility] Comment on above: Performed By: #### L AB17, [id number], [id number] ####Volunteer Services Assistant: JORGE A [phone])[facility] ([facility])[address] [place] [address] Potassium [Moles/Vol] 3.6 mmol/L Normal 3.5-5.[address] [facility] Comment on above: Result Comment: [facility] potassium values may be up to 0.5 mmol/L lower than serum values. Performed By: #### L AB17, [id number], [id number] ####Volunteer Services Assistant: JORGE A MALDONADO ([phone])[facility] ([facility])[address] [place] [address] Protein [Mass/Vol] 6.7 g/dL Normal 6.4-8.3 [facility] Comment on above: Performed By: #### L AB17, [id number], [id number] ####Volunteer Services Assistant: JORGE A MALDONADO ([phone])[facility] ([facility])[address] [place] [address] Sodium [Moles/Vol] 141 mmol/L Normal 136-145 [facility] Comment on above: Performed By: #### L AB17, [id number], [id number] ####Volunteer Services Assistant: JORGE A MALDONADO ([phone])[facility] ([facility])[address] [place] [address] Urea nitrogen [Mass/Vol] 32 mg/dL High 9-23 [facility] Comment on above: Performed By: #### L AB17, [id number], [id number] ####Volunteer Services Assistant: JORGE A MALDONADO ([phone])[facility])[address] [place] [address] Albumin [Mass/Vol] 3.6 g/dL Normal 3.4-4.8 [facility] Comment on above: Performed By: #### L AB103, LAB17, [id number] ####Volunteer Services Assistant: JORGE A MALDONADO ([phone])[facility])[address] [place] [address] ALP [Catalytic activity/Vol] 105 U/L Normal 40-150 [facility] Comment on above: Performed By: #### L AB103, LAB17, [id number] ####Volunteer Services Assistant: JORGE A MALDONADO ([phone])[facility] ([facility])[address] [place] [address] ALT [Catalytic activity/Vol] 13 U/L Normal <40 [facility] Comment on above: Performed By: #### L AB103, LAB17, [id number] ####Volunteer Services Assistant: JORGE A MALDONADO ([phone])[facility] ([facility])[address] [place] [address] Anion gap [Moles/Vol] 14 mmol/L High 3-13 [facility] Comment on above: Performed By: #### L AB103, LAB17, [id number] ####Volunteer Services Assistant: JORGE A MALDONADO ([phone])[facility] ([facility])[address] [place] [address] AST [Catalytic activity/Vol] 26 U/L Normal <34 [facility] Comment on above: Performed By: #### Russell AB103, LAB17, [id number] ####Volunteer Services Assistant: JORGE A MALDONADO ([phone])[facility] ([facility])[address] [place] [address] Bilirubin [Mass/Vol] 1.6 mg/dL High <1.2 [facility] Comment on above: Performed By: #### L AB103, LAB17, KWA100 ####Volunteer Services Assistant: JORGE A MALDONADO ([phone])[facility] ([facility])[address] [place] [address] Calcium [Mass/Vol] 9.4 mg/dL Normal 8.8-10.0 [facility] Comment on above: Performed By: #### L AB103, LAB17, KPR350 ####Volunteer Services Assistant: JORGE A MALDONADO ([phone])[facility] ([facility])[address] [place] [address] [place] Chloride [Moles/Vol] 106 mmol/L Normal 98-107 [facility] Comment on above: Performed By: #### L AB103, LAB17, ZCA707 ####Volunteer Services Assistant: JORGE A MALDONADO ([phone])[facility] ([facility])[address] [place] [address] [place] CO2 [Moles/Vol] 21 mmol/L Low 23-31 [facility] Comment on above: Performed By: #### L AB103, LAB17, [id number] ####Volunteer Services Assistant: JORGE A MALDONADO ([phone])[facility])[address] [place] [address] Creatinine [Mass/Vol] 1.78 mg/dL High 0.72-1.[address] [facility] Comment on above: Performed By: #### L AB103, LAB17, [id number] ####Volunteer Services Assistant: JORGE A MALDONADO ([phone])[facility])[address] [place] [address] GLOMERULAR FILTRATION RATE ML/MIN/1.73 SQ M.PREDICTED 36.9 mL/min/1.73m*2 Low >60.0 [facility] Comment on above: Result Comment: Calc ulation based on the Chronic Kidney Disease Epidemiology Collaboration (CKD-EPI) equation refit without adjustment for race Performed By: #### L AB103, LAB17, [id number] ####Volunteer Services Assistant: JORGE A MALDONADO ([phone])[facility])[address] [place] [address] Glucose [Mass/Vol] 128 mg/dL High 82-115 [facility] Comment on above: Performed By: #### L AB103, LAB17, WHH564 ####Volunteer Services Assistant: JORGE A MALDONADO ([phone])[facility])[address] [place] [address] [place] Potassium [Moles/Vol] 3.6 mmol/L Normal 3.5-5.[address] [facility] Comment on above: Result Comment: [facility] potassium values may be up to 0.5 mmol/L lower than serum values. Performed By: #### L AB103, LAB17, NIL924 ####Volunteer Services Assistant: JORGE A MALDONADO ([phone])[facility])[address] [place] [address] Protein [Mass/Vol] 6.9 g/dL Normal 6.4-8.3 [facility] Comment on above: Performed By: #### L AB103, LAB17, [id number] ####Volunteer Services Assistant: JORGE A MALDONADO ([phone])[facility] ([facility])[address] [place] [address] Sodium [Moles/Vol] 141 mmol/L Normal 136-145 [facility] Comment on above: Performed By: #### L AB103, LAB17, IBD733 ####Volunteer Services Assistant: JORGE A MALDONADO ([phone])[facility] ([facility])[address] [place] [address] Urea nitrogen [Mass/Vol] 32 mg/dL High 9-23 [facility] Comment on above: Performed By: #### Russell AB103, LAB17, [id number] ####Volunteer Services Assistant: JORGE A MALDONADO ([phone])[facility] ([facility])[address] [place] [address] Calcium.ionized [Moles/Vol]o n 01-30-2025 Calcium.ionized (Bld) [Moles/Vol] 4.3 mg/dL 4.30 - 5.20 mg/dL [facility] Interpretation and review of laboratory results Normal [facility] PH, IONIZED CALCIUM 7.39 7.31 - 7.46 [facility] Calcium.ionized (Bld) [Moles/Vol] 4.5 mg/dL 4.30 - 5.20 mg/dL [facility] Interpretation and review of laboratory results Normal [facility] PH, IONIZED CALCIUM 7.35 7.31 - 7.46 [facility] Comprehensive metabolic 1998 panelon 01-30-2025 Albumin [Mass/Vol] 3.5 g/dL 3.4 - 4.8 g/dL [facility] ALP [Catalytic activity/Vol] 103 U/L 40 - 150 U/L [facility] ALT [Catalytic activity/Vol] 12 U/L NINF - 40 U/L [facility] Anion gap [Moles/Vol] 14 mmol/L High 3 - 13 mmol/L [facility] AST [Catalytic activity/Vol] 27 U/L NINF - 34 U/L [facility] Bilirubin [Mass/Vol] 1.5 mg/dL High NINF - 1.2 mg/dL [facility] Calcium [Mass/Vol] 9.1 mg/dL 8.8 - 10. 0 mg/dL [facility] Chloride [Moles/Vol] 106 mmol/L 98 - 10 7 mmol/L [facility] CO2 [Moles/Vol] 21 mmol/L Low 23 - 31 mmol/L [facility] Creatinine [Mass/Vol] 1.95 mg/dL High 0.72 - 1.25 mg/dL [facility] GFR/1.73 sq M.predicted (S/P/Bld) [Vol rate/Area] 33.1 mL/min Low - PINF [facility] Comment on above: Calculation based on the Chronic Kidney Disease Epidemiology Collaboration (CKD-EPI) equation refit without adjustment for race Glucose [Mass/Vol] 144 mg/dL High 82 - 115 mg/dL [facility] Interpretation and review of laboratory results Abnormal [facility] Potassium [Moles/Vol] 3.6 mmol/L 3.5 - 5.1 mmol/L [facility] Comment on above: Plasma potassium erika ues may be up to 0.5 mmol/L lower than serum values. Protein [Mass/Vol] 6.7 g/dL 6.4 - 8.3 g/dL [facility] Sodium [Moles/Vol] 141 mmol/L 136 - 145 mmol/L [facility] Urea nitrogen [Mass/Vol] 32 mg/dL High 9 - 23 mg/d L [facility] Albumin [Mass/Vol] 3.6 g/dL 3.4 - 4.8 g/dL [facility] ALP [Catalytic activity/Vol] 105 U/L 40 - 150 U/L [facility] ALT [Catalytic activity/Vol] 13 U/L NINF - 40 U/L [facility] Anion gap [Moles/Vol] 14 mmol/L High 3 - 13 mmol/L [facility] AST [Catalytic activity/Vol] 26 U/L NINF - 34 U/L [facility] Bilirubin [Mass/Vol] 1.6 mg/dL High NINF - 1.2 mg/dL [facility] Calcium [Mass/Vol] 9.4 mg/dL 8.8 - 10. 0 mg/dL [facility] Chloride [Moles/Vol] 106 mmol/L 98 - 10 7 mmol/L [facility] CO2 [Moles/Vol] 21 mmol/L Low 23 - 31 mmol/L [facility] Creatinine [Mass/Vol] 1.78 mg/dL High 0.72 - 1.25 mg/dL [facility] GFR/1.73 sq M.predicted (S/P/Bld) [Vol rate/Area] 36.9 mL/min Low - PINF [facility] Comment on above: Calculation based on the Chronic Kidney Disease Epidemiology Collaboration (CKD-EPI) equation refit without adjustment for race Glucose [Mass/Vol] 128 mg/dL High 82 - 115 mg/dL [facility] Interpretation and review of laboratory results Abnormal [facility] Potassium [Moles/Vol] 3.6 mmol/L 3.5 - 5.1 mmol/L [facility] Comment on above: Plasma potassium erika ues may be up to 0.5 mmol/L lower than serum values. Protein [Mass/Vol] 6.9 g/dL 6.4 - 8.3 g/dL [facility] Sodium [Moles/Vol] 141 mmol/L 136 - 145 mmol/L [facility] Urea nitrogen [Mass/Vol] 32 mg/dL High 9 - 23 mg/d L [facility] Laboratory - Chemistry and C hemistry - challengeon 01-30-2025 Glucose [Mass/Vol] 145 mg/dL High 70 - 100 mg/dL [facility] Glucose [Mass/Vol] 156 mg/dL High 70 - 100 mg/dL [facility] Magnesium [Mass/Vol] 2 mg/dL 1.6 - 2 .6 mg/dL [facility] Magnesium [Mass/Vol] 2.1 mg/dL 1.6 - 2 .6 mg/dL [facility] Glucose [Mass/Vol] 119 mg/dL High 70 - 100 mg/dL [facility] Glucose [Mass/Vol] 92 mg/dL 70 - 100 mg/dL [facility] MAGNESIUMon 01-30-2025 Magnesium [Mass/Vol] 2.0 mg/dL Normal 1.6-2.6 [facility] Comment on above: Result Comment: MIO Klein COMMENTS: Higher values can be expected in females during menses. Performed By: #### L AB17, [id number], [id number] ####Volunteer Services Assistant: JORGE A MALDONADO ([phone])[facility] ([address] Magnesium [Mass/Vol] 2.1 mg/dL Normal 1.6-2.6 [facility] Comment on above: Result Comment: ORDE R COMMENTS: Higher values can be expected in females during menses. Performed By: #### L AB103, LAB17, [id number] ####Volunteer Services Assistant: JORGE A MALDONADO ([phone])[facility] [place] [address] Magnesium [Mass/Vol]on 01-30 Higher values can be expected in females during menses. [facility] Higher values can be expected in females during menses. [facility] No Panel Informationon 01-30 Interpretation and review of laboratory results Abnormal [facility] Performed by: [address] [address] CLIA ID: [id number] [facility] Interpretation and review of laboratory results Abnormal [facility] Performed by: [address] [address] CLIA ID: [id number] [facility] Interpretation and review of laboratory results Normal [facility] Interpretation and review of laboratory results Normal [facility] Interpretation and review of laboratory results Abnormal [facility] Performed by: [address] [address] CLIA ID: [id number] [facility] Interpretation and review of laboratory results Normal [facility] Performed by: [address] [address] CLIA ID: [id number] [facility] PHOSPHORUSon 01-30-2025 Phosphate [Mass/Vol] 2.5 mg/dL Normal 2.3-4.7 [facility] Comment on above: Performed By: #### L AB17, [id number], [id number] ####Volunteer Services Assistant: JORGE A MALDONADO ([phone])[facility] [place] [address] Phosphate [Mass/Vol] 2.5 mg/dL Normal 2.3-4.7 [facility] Comment on above: Performed By: #### L AB103, LAB17, NFS961 ####Volunteer Services Assistant: JORGE A MALDONADO ([phone])[facility] ([facility])[address] [place] [address] Phosphate [Moles/Vol]on 01-18 Phosphate [Mass/Vol] 2.5 mg/dL 2.3 - 4 .7 mg/dL [facility] Phosphate [Mass/Vol] 2.5 mg/dL 2.3 - 4 .7 mg/dL [facility] Progress Noteon 01-30-2025 Progress Note Nutrition Assessment Type and Reason for Visit: Initial, Positive Nutrition Screen (wound) Nutrition Recommendations/Plan : Per MNT: liberalize diet to Regular/5 carb choices/2gm Sodium to allow for add'l meal options and promote po intake. Add Magic Cup daily (4oz, 290kcal, 9gm protein). Recommend record po intake in I/O flowsheet to monitor. RD will follow weekly. Malnutrition Assessment: Malnutrition Status: No malnutrition Nutrition Assessment: 84yo male admitted 01/28 with CHF. PMH includes HF, CKD3, DM, non-Hodgkin's lymphoma, GERD, HTN, HLD, PUD, pulmonary fibrosis. Labs (01/29) K+ low 3.4, BUN elevated 36, Cr elevated 2.08, Glucose elevated 107/138. Medications reviewed. Regular/5 carb choices/Cardiac diet. Per chart, dry target weight is 180#. Pt reports variable appetite/intake. Reports eating half a bagel with cream cheese for bfst today. Denies N/V/abd pain. Denies chew/swallow difficulty. +BM. Pt follow low sodium diet at home: makes most of own food, uses Mrs. Camacho, uses mostly frozen vegetables, rinses occasional canned vegetables. Pt reports UBW to be 180-185# and this has been stable aside from fluid retention recently. RD reviewed/encouraged high protein foods with meals. Pt willing to receive Magic Cup. Estimated Daily Nutrient Needs: Energy Requirements Based On: Kcal/kg Weight Used for Energy Requirements: [place] Weight for Energy Calculation (kg): 67 kg Total Energy Requirements (kcals/day): 25-28 kcal/kg = 3540-8512 kcal Weight Used for Protein Requirements: [place] Weight in Kg Used for Protein Requirements: 67 kg Estimated Total Protein (g/day): 1-1.2 gm/kg = 67-80 gm Estimated Daily Total Fluid (ml/day): per MD recommendations Nutrition Related Findings: -4.4# of fluid since 01/28, -I/O, +3 BLE edema, Simon 21, missing teeth, GI WDL, BM 01/28 Wound Type: Pressure Injury, Wound Consult Pending (coccyx) Current Nutrition Therapies: Adult diet Regular; 5 carb choices (75 gm/meal); Low Fat/Low Chol/High Fiber/2 gm Na Current Oral Intake Average Meal Intake: 51-75%, 76-100% (x 2 recorded meals 01/29) Average Supplements Intake: None Ordered Anthropometric Measures: Height: 170.2 cm (5' 7) Current Body Weight: 85.8 kg (189 lb 3.2 oz) Weight Source: Standing Scale Admission Body Weight: 87.8 kg (193 lb 9.6 oz) (standing 01/28) [place] Body Weight (lbs) (Calculated): 148 lbs [place] Body Weight (Kg) (Calculated): 67 kg % [place] Body Weight (Calculated): 127.8 % BMI (kg/m2) (Calculated): 29.6 Nutrition Diagnosis: Increased nutrient needs related to increase demand for energy/nutrients as evidenced by wounds Nutrition Interventions: Nutrition Education/Counseling : No recommendation at this time Coordination of Nutrition Care: Continue to monitor while inpatient Goals: Goals: PO intake 75% or greater Nutrition Monitoring and Evaluation: Behavioral-Environme ntal Outcomes: None Identified Food/Nutrient Intake Outcomes: Food and Nutrient Intake, Supplement Intake Physical Signs/Symptoms Outcomes: Biochemical Data, GI Status, Fluid Status or Edema, Nutrition Focused Physical Findings, Skin, Weight Discharge Planning: Too soon to determine Aleksandra Pak RD Contact: Actifio chat or *[phone] [facility] 30on 01-29-2025 30 Problem: Knowledge Deficit Goal: Patient/family/careg iver demonstrates understanding of disease process, treatment plan, medications, and discharge instructions Outcome: Progressing Problem: Hemodynamic Status Goal: Patient's vitals signs are stable Outcome: Progressing Problem: Excessive Fluid Volume Goal: Fluid and electrolyte balance are achieved/maintained Outcome: Progressing Problem: Inadequate Gas Exchange Goal: Patient is adequately oxygenated and ventilation is improved Outcome: Progressing Goal: Nutritional status is improving Outcome: Progressing Problem: Activity Intolerance/Impaired Mobility Goal: Mobility/activity is maintained at optimum level for patient Outcome: Progressing Problem: Nutrition Goal: Nutritional status is improving Outcome: Progressing Problem: Pain - Adult Goal: Verbalizes/displays adequate comfort level or baseline comfort level Outcome: Progressing Problem: Safety - Adult Goal: Free from fall injury Outcome: Progressing Normal [facility] 30 Problem: Knowledge Deficit Goal: Patient/family/careg iver demonstrates understanding of disease process, treatment plan, medications, and discharge instructions Outcome: Progressing Problem: Hemodynamic Status Goal: Patient's vitals signs are stable Outcome: Progressing Problem: Excessive Fluid Volume Goal: Fluid and electrolyte balance are achieved/maintained Outcome: Progressing Problem: Inadequate Gas Exchange Goal: Patient is adequately oxygenated and ventilation is improved Outcome: Progressing Goal: Nutritional status is improving Outcome: Progressing Problem: Activity Intolerance/Impaired Mobility Goal: Mobility/activity is maintained at optimum level for patient Outcome: Progressing Problem: Nutrition Goal: Nutritional status is improving Outcome: Progressing Problem: Pain - Adult Goal: Verbalizes/displays adequate comfort level or baseline comfort level Outcome: Progressing Problem: Safety - Adult Goal: Free from fall injury Outcome: Progressing Normal [facility] BASIC METABOLIC PANELon 01-18 Anion gap [Moles/Vol] 10 mmol/L Normal 3-[address] [facility] Comment on above: Performed By: #### L AB113, [id number], LAB15 ####Volunteer Services Assistant: JORGE A MALDONADO ([phone])[facility])[address] [place] [address] Calcium [Mass/Vol] 8.6 mg/dL Low 8.8-10.0 [facility] Comment on above: Performed By: #### L AB113, [id number], LAB15 ####Volunteer Services Assistant: JORGE A MALDONADO ([phone])[facility] ([facility])[address] [place] [address] Chloride [Moles/Vol] 109 mmol/L High 98-107 [facility] Comment on above: Performed By: #### L AB113, [id number], LAB15 ####Volunteer Services Assistant: JORGE A MALDONADO ([phone])[facility])[address] [place] [address] CO2 [Moles/Vol] 22 mmol/L Low 23-31 [facility] Comment on above: Performed By: #### L AB113, [id number], LAB15 ####Volunteer Services Assistant: JORGE A MALDONADO ([phone])[facility])[address] [place] [address] Creatinine [Mass/Vol] 1.84 mg/dL High 0.72-1.[address] [facility] Comment on above: Performed By: #### L AB113, EHC004, LAB15 ####Volunteer Services Assistant: JORGE A MALDONADO ([phone])[facility])[address] [place] [address] GLOMERULAR FILTRATION RATE ML/MIN/1.73 SQ M.PREDICTED 35.5 mL/min/1.73m*2 Low >60.0 [facility] Comment on above: Result Comment: Calc ulation based on the Chronic Kidney Disease Epidemiology Collaboration (CKD-EPI) equation refit without adjustment for race Performed By: #### L AB113, [id number], LAB15 ####Volunteer Services Assistant: JORGE A MALDONADO ([phone])[facility])[address] [place] [address] Glucose [Mass/Vol] 74 mg/dL Low 82-115 [facility] Comment on above: Performed By: #### L AB113, [id number], LAB15 ####Volunteer Services Assistant: JORGE A MALDONADO ([phone])[facility])[address] [place] [address] Potassium [Moles/Vol] 2.8 mmol/L Low 3.5-5.[address] [facility] Comment on above: Result Comment: [facility] potassium values may be up to 0.5 mmol/L lower than serum values. Performed By: #### L AB113, [id number], LAB15 ####Volunteer Services Assistant: JORGE A MALDONADO ([phone])[facility])[address] [place] [address] Sodium [Moles/Vol] 141 mmol/L Normal 136-145 [facility] Comment on above: Performed By: #### L AB113, [id number], LAB15 ####Volunteer Services Assistant: JORGE A MALDONADO ([phone])[facility])[address] [place] [address] Urea nitrogen [Mass/Vol] 36 mg/dL High 9-23 [facility] Comment on above: Performed By: #### L AB113, [id number], LAB15 ####Volunteer Services Assistant: JORGE A MALDONADO ([phone])[facility] ([facility])[address] [place] [address] Basic metabolic 1998 panelOr dered By: Sol Adams on 01-29-2025 Anion gap [Moles/Vol] 10 mmol/L 3 - 13 mmol/L [facility] Calcium [Mass/Vol] 8.6 mg/dL Low 8.8 - 10. 0 mg/dL [facility] Chloride [Moles/Vol] 109 mmol/L High 98 - 10 7 mmol/L [facility] CO2 [Moles/Vol] 22 mmol/L Low 23 - 31 mmol/L [facility] Creatinine [Mass/Vol] 1.84 mg/dL High 0.72 - 1.25 mg/dL [facility] GFR/1.73 sq M.predicted (S/P/Bld) [Vol rate/Area] 35.5 mL/min Low - PINF [facility] Comment on above: Calculation based on the Chronic Kidney Disease Epidemiology Collaboration (CKD-EPI) equation refit without adjustment for race Glucose [Mass/Vol] 74 mg/dL Low 82 - 115 mg/dL [facility] Interpretation and review of laboratory results Abnormal [facility] Potassium [Moles/Vol] 2.8 mmol/L Low 3.5 - 5.1 mmol/L [facility] Comment on above: Plasma potassium erika ues may be up to 0.5 mmol/L lower than serum values. Sodium [Moles/Vol] 141 mmol/L 136 - 145 mmol/L [facility] Urea nitrogen [Mass/Vol] 36 mg/dL High 9 - 23 mg/d L [facility] [facility] CALCIUM, IONIZEDon CALCIUM IONIZED 4.30 mg/dL Normal 4.30-5.20 [facility] Comment on above: Performed By: #### L AB54 ####Volunteer Services Assistant: JORGE A MALDONADO ([phone])[facility] ([facility])[address] [place] [address] PH, IONIZED CALCIUM 7.38 Normal 7.31-7.46 [facility] Comment on above: Performed By: #### L AB54 ####Volunteer Services Assistant: JORGE A MALDONADO ([phone])[facility])[address] [place] [address] CALCIUM IONIZED 4.20 mg/dL Low 4.30-5.20 [facility] Comment on above: Performed By: #### L AB54 ####Volunteer Services Assistant: JORGE A MALDONADO ([phone])[facility])[address] [place] [address] PH, IONIZED CALCIUM 7.38 Normal 7.31-7.46 [facility] Comment on above: Performed By: #### L AB54 ####Volunteer Services Assistant: JORGE A MALDONADO ([phone])[facility])[address] [place] [address] CBC (HEMOGRAM)on 01-29-2025 Erythrocyte distribution width (RBC) [Ratio] 19.6 % High 11.5-15.0 [facility] Comment on above: Performed By: #### L [id number] ####Volunteer Services Assistant: JORGE A MALDONADO ([phone])[address] Hematocrit (Bld) [Volume fraction] 46.3 % Normal 40.0-52.0 [facility] Comment on above: Performed By: #### L [id number] ####Volunteer Services Assistant: JORGE A MALDONADO ([phone])[address] Hemoglobin (Bld) [Mass/Vol] 15.1 g/dL Normal 13.0-18.0 [facility] Comment on above: Performed By: #### L [id number] ####Volunteer Services Assistant: JORGE A MALDONADO ([phone])[address] MCH (RBC) [Entitic mass] 28.7 pg Normal 26.0-34.0 [facility] Comment on above: Performed By: #### L [id number] ####Volunteer Services Assistant: JORGE A MALDONADO ([phone])[facility] ([facility])[address] [place] [address] MCHC 32.6 % Normal 30.5-36.0 [facility] Comment on above: Performed By: #### L [id number] ####Volunteer Services Assistant: JORGE A MALDONADO ([phone])[facility] ([facility])[address] [place] [address] MCV (RBC) [Entitic vol] 87.9 fL Normal 77.0-99.0 [facility] Comment on above: Performed By: #### L [id number] ####Volunteer Services Assistant: JORGE A MALDONADO ([phone])[facility])[address] [place] [address] Platelet mean volume (Bld) [Entitic vol] 10.3 fL Normal 9.0-12.7 [facility] Comment on above: Performed By: #### L [id number] ####Volunteer Services Assistant: JORGE A MALDONADO ([phone])[facility] ([facility])[address] [place] [address] Platelets (Bld) [#/Vol] 199 10*3/uL Normal 140-440 [facility] Comment on above: Performed By: #### L [id number] ####Volunteer Services Assistant: JORGE A MALDONADO ([phone])[facility])[address] [place] [address] RBC (Bld) [#/Vol] 5.27 10*6/uL Normal 4.40-5.90 [facility] Comment on above: Performed By: #### L [id number] ####Volunteer Services Assistant: JORGE A MALDONADO ([phone])[facility])[address] [place] [address] WBC (Bld) [#/Vol] 5.3 10*3/uL Normal 3.6-10.7 [facility] Comment on above: Performed By: #### L [id number] ####Volunteer Services Assistant: JORGE A MALDONADO ([phone])[facility] ([facility])[address] [place] [address] CBC W Auto Differential pane l (Bld)on 01-29-2025 Basophils (Bld) [#/Vol] 0.1 10*3/uL 0.0 - 0.2 10*3/uL [facility] Basophils/100 WBC (Bld) 1.5 % 0.0 - 2.0 % [facility] Eosinophils (Bld) [#/Vol] 0.2 10*3/uL 0.0 - 0.5 10*3/uL [facility] Eosinophils/100 WBC (Bld) 3.2 % 0.0 - 6.0 % [facility] Erythrocyte distribution width (RBC) [Ratio] 19 % High 11.5 - 15.0 % [facility] Hematocrit (Bld) [Volume fraction] 42.1 % 40.0 - 52.0 % [facility] Hemoglobin (Bld) [Mass/Vol] 13.7 g/dL 13.0 - 18.0 g/dL [facility] Immature granulocytes (Bld) [#/Vol] 0 10*3/uL NINF - 0.1 10*3/uL [facility] Immature granulocytes/100 WBC (Bld) 0.2 % 0.0 - 2.0 % [facility] Interpretation and review of laboratory results Abnormal [facility] Lymphocytes (Bld) [#/Vol] 1 10*3/uL 1.0 - 4.3 10*3/uL [facility] Lymphocytes/100 WBC (Bld) 20.6 % 15.0 - 45.0 % [facility] MCH (RBC) [Entitic mass] 28.5 pg 26. 0 - 34.0 pg [facility] MCHC (RBC) [Mass/Vol] 32.5 % 30.5 - 36.0 % [facility] MCV (RBC) [Entitic vol] 87.5 fL 77.0 - 99.0 fL [facility] Monocytes (Bld) [#/Vol] 0.4 10*3/uL 0.0 - 0.9 10*3/uL [facility] Monocytes/100 WBC (Bld) 8 % 5.0 - 13.0 % [facility] Neutrophils (Bld) [#/Vol] 3.2 10*3/uL 1.8 - 7.5 10*3/uL [facility] Neutrophils/100 WBC (Bld) 66.5 % 38.0 - 82.0 % [facility] Nucleated RBC/100 WBC (Bld) [Ratio] 0 % [facility] Platelet mean volume (Bld) [Entitic vol] 10.8 fL 9.0 - 12.7 fL [facility] Platelets (Bld) [#/Vol] 206 10*3/uL 140 - 440 10*3/uL [facility] RBC (Bld) [#/Vol] 4.81 10*6/uL 4.40 - 5.9 0 10*6/uL [facility] WBC (Bld) [#/Vol] 4.8 10*3/uL 3.6 - 10.7 10*3/uL [facility] CBC WITH AUTO DIFFERENTIALon 01-29-2025 Basophils (Bld) [#/Vol] 0.1 10*3/uL Normal 0.0-0.2 [facility] Comment on above: Performed By: #### L [id number] ####Volunteer Services Assistant: JORGE A MALDONADO ([phone])[facility])[address] [place] [address] Basophils/100 WBC (Bld) 1.5 % Normal 0.0-2.0 [facility] Comment on above: Performed By: #### L [id number] ####Volunteer Services Assistant: JORGE A MALDONADO ([phone])[facility])[address] [place] [address] Eosinophils (Bld) [#/Vol] 0.2 10*3/uL Normal 0.0-0.5 [facility] Comment on above: Performed By: #### L [id number] ####Volunteer Services Assistant: JORGE A MALDONADO ([phone])[facility])[address] [place] [address] Eosinophils/100 WBC (Bld) 3.2 % Normal 0.0-6.0 [facility] Comment on above: Performed By: #### L [id number] ####Volunteer Services Assistant: JORGE A [phone])[facility])[address] [place] [address] Erythrocyte distribution width (RBC) [Ratio] 19.0 % High 11.5-15.0 [facility] Comment on above: Performed By: #### L [id number] ####Volunteer Services Assistant: JORGE A MALDONADO ([phone])[facility])[address] [place] [address] Hematocrit (Bld) [Volume fraction] 42.1 % Normal 40.0-52.0 [facility] Comment on above: Performed By: #### L [id number] ####Volunteer Services Assistant: JORGE A MALDONADO ([phone])[facility])[address] [place] [address] Hemoglobin (Bld) [Mass/Vol] 13.7 g/dL Normal 13.0-18.0 [facility] Comment on above: Performed By: #### L [id number] ####Volunteer Services Assistant: JORGE A MALDONADO ([phone])[facility])[address] [place] [address] IMMATURE GRANS % 0.2 % Normal 0.0-2.0 [facility] Comment on above: Performed By: #### L [id number] ####Volunteer Services Assistant: JORGE A MALDONADO ([phone])[facility])[address] [place] [address] IMMATURE GRANS ABSOLUTE 0.0 10*3/uL Normal <0.1 [facility] Comment on above: Performed By: #### L [id number] ####Volunteer Services Assistant: JORGE A MALDONADO ([phone])[facility])[address] [place] [address] Lymphocytes (Bld) [#/Vol] 1.0 10*3/uL Normal 1.0-4.3 [facility] Comment on above: Performed By: #### L [id number] ####Volunteer Services Assistant: JORGE A MALDONADO ([phone])[facility])[address] [place] [address] Lymphocytes/100 WBC (Bld) 20.6 % Normal 15.0-45.0 [facility] Comment on above: Performed By: #### L [id number] ####Volunteer Services Assistant: JORGEA MALDONADO ([phone])[facility])[address] [place] [address] MCH (RBC) [Entitic mass] 28.5 pg Normal 26.0-34.0 [facility] Comment on above: Performed By: #### L [id number] ####Volunteer Services Assistant: JORGE A MALDONADO ([phone])[facility])[address] [place] [address] MCHC 32.5 % Normal 30.5-36.0 [facility] Comment on above: Performed By: #### L [id number] ####Volunteer Services Assistant: JORGE A MALDONADO ([phone])[address] MCV (RBC) [Entitic vol] 87.5 fL Normal 77.0-99.0 [facility] Comment on above: Performed By: #### L [id number] ####Volunteer Services Assistant: JORGE A MALDONADO ([phone])[address] Monocytes (Bld) [#/Vol] 0.4 10*3/uL Normal 0.0-0.9 [facility] Comment on above: Performed By: #### L [id number] ####Volunteer Services Assistant: JORGE A MALDONADO ([phone])[address] Monocytes/100 WBC (Bld) 8.0 % Normal 5.0-13.0 [facility] Comment on above: Performed By: #### L [id number] ####Volunteer Services Assistant: JORGE A MALDONADO ([phone])[address] NEUTROPHILS ABSOLUTE 3.2 10*3/uL Normal 1.8-7.5 [facility] Comment on above: Performed By: #### L [id number] ####Volunteer Services Assistant: JORGE A MALDONADO ([phone])[facility] [place] [address] Neutrophils/100 WBC (Bld) 66.5 % Normal 38.0-82.0 [facility] Comment on above: Performed By: #### L [id number] ####Volunteer Services Assistant: JORGE A MALDONADO ([phone])[facility] ([facility])[address] [place] [address] NRBC 0.0 /100 WBCs Normal 0.0-2.0 [facility] Comment on above: Performed By: #### L [id number] ####Volunteer Services Assistant: JORGE A MALDONADO ([phone])[facility] ([facility])[address] [place] [address] Platelet mean volume (Bld) [Entitic vol] 10.8 fL Normal 9.0-12.7 [facility] Comment on above: Performed By: #### L [id number] ####Volunteer Services Assistant: JORGE A MALDONADO ([phone])[facility] ([facility])[address] [place] [address] Platelets (Bld) [#/Vol] 206 10*3/uL Normal 140-440 [facility] Comment on above: Performed By: #### L [id number] ####Volunteer Services Assistant: JORGE A MALDONADO ([phone])[facility] ([facility])[address] [place] [address] RBC (Bld) [#/Vol] 4.81 10*6/uL Normal 4.40-5.90 [facility] Comment on above: Performed By: #### L [id number] ####Volunteer Services Assistant: JORGE A MALDONADO ([phone])[facility] ([facility])[address] [place] [address] [place] WBC (Bld) [#/Vol] 4.8 10*3/uL Normal 3.6-10.7 [facility] Comment on above: Performed By: #### L [id number] ####Volunteer Services Assistant: JORGE A MALDONADO ([phone])[facility] ([facility])[address] [place] [address] CBC panel Auto (Bld)on 01-29 Erythrocyte distribution width (RBC) [Ratio] 19.6 % High 11.5 - 15.0 % [facility] Hematocrit (Bld) [Volume fraction] 46.3 % 40.0 - 52.0 % [facility] Hemoglobin (Bld) [Mass/Vol] 15.1 g/dL 13.0 - 18.0 g/dL [facility] Interpretation and review of laboratory results Abnormal [facility] MCH (RBC) [Entitic mass] 28.7 pg 26. 0 - 34.0 pg [facility] MCHC (RBC) [Mass/Vol] 32.6 % 30.5 - 36.0 % [facility] MCV (RBC) [Entitic vol] 87.9 fL 77.0 - 99.0 fL [facility] Platelet mean volume (Bld) [Entitic vol] 10.3 fL 9.0 - 12.7 fL [facility] Platelets (Bld) [#/Vol] 199 10*3/uL 140 - 440 10*3/uL [facility] RBC (Bld) [#/Vol] 5.27 10*6/uL 4.40 - 5.9 0 10*6/uL [facility] WBC (Bld) [#/Vol] 5.3 10*3/uL 3.6 - 10.7 10*3/uL [facility] COMPREHENSIVE METABOLIC PANE Greg 01-29-2025 Albumin [Mass/Vol] 3.6 g/dL Normal 3.4-4.8 [facility] Comment on above: Performed By: #### L AB113, LAB17, [id number] ####Volunteer Services Assistant: JORGE A MALDONADO ([phone])[facility] [place] [address] ALP [Catalytic activity/Vol] 118 U/L Normal 40-150 [facility] Comment on above: Performed By: #### L AB113, LAB17, [id number] ####Volunteer Services Assistant: JORGE A MALDONADO ([phone])[facility] [place] [address] ALT [Catalytic activity/Vol] 13 U/L Normal <40 [facility] Comment on above: Performed By: #### L AB113, LAB17, [id number] ####Volunteer Services Assistant: JORGE A MALDONADO ([phone])[facility] ([facility])[address] [place] [address] Anion gap [Moles/Vol] 11 mmol/L Normal 3-13 [facility] Comment on above: Performed By: #### L ABNakul, LAB17, [id number] ####Volunteer Services Assistant: JORGE A MALDONADO ([phone])[facility] ([facility])[address] [place] [address] AST [Catalytic activity/Vol] 27 U/L Normal <34 [facility] Comment on above: Performed By: #### Russell ABNakul, LAB17, [id number] ####Volunteer Services Assistant: JORGE A MALDONADO ([phone])[facility] ([facility])[address] [place] [address] Bilirubin [Mass/Vol] 1.4 mg/dL High <1.2 [facility] Comment on above: Performed By: #### Russell ABNakul, LAB17, [id number] ####Volunteer Services Assistant: JORGE A MALDONADO ([phone])[facility] ([facility])[address] [place] [address] Calcium [Mass/Vol] 9.6 mg/dL Normal 8.8-10.0 [facility] Comment on above: Performed By: #### Russell ABNakul, LAB17, [id number] ####Volunteer Services Assistant: JORGE A MALDONADO ([phone])[facility] ([facility])[address] [place] [address] [place] Chloride [Moles/Vol] 106 mmol/L Normal 98-107 [facility] Comment on above: Performed By: #### L AB113, LAB17, HFH112 ####Volunteer Services Assistant: JORGE A MALDONADO ([phone])[facility])[address] [place] [address] [place] CO2 [Moles/Vol] 24 mmol/L Normal 23-31 [facility] Comment on above: Performed By: #### L AB113, LAB17, DPH126 ####Volunteer Services Assistant: JORGE A MALDONADO ([phone])[facility])[address] [place] [address] Creatinine [Mass/Vol] 2.08 mg/dL High 0.72-1.[address] [facility] Comment on above: Performed By: #### L AB113, LAB17, [id number] ####Volunteer Services Assistant: JORGE A MALDONADO ([phone])[facility])[address] [place] [address] GLOMERULAR FILTRATION RATE ML/MIN/1.73 SQ M.PREDICTED 30.6 mL/min/1.73m*2 Low >60.0 [facility] Comment on above: Result Comment: Calc ulation based on the Chronic Kidney Disease Epidemiology Collaboration (CKD-EPI) equation refit without adjustment for race Performed By: #### L AB113, LAB17, [id number] ####Volunteer Services Assistant: JORGE A MALDONADO ([phone])[facility])[address] [place] [address] Glucose [Mass/Vol] 107 mg/dL Normal 82-115 [facility] Comment on above: Performed By: #### L AB113, LAB17, [id number] ####Volunteer Services Assistant: JORGE A MALDONADO ([phone])[address] Potassium [Moles/Vol] 3.4 mmol/L Low 3.5-5.[address] [facility] Comment on above: Result Comment: [facility] potassium values may be up to 0.5 mmol/L lower than serum values. Performed By: #### L AB113, LAB17, [id number] ####Volunteer Services Assistant: JORGE A MALDONADO ([phone])[facility])[address] [place] [address] Protein [Mass/Vol] 7.1 g/dL Normal 6.4-8.3 [facility] Comment on above: Performed By: #### L AB113, LAB17, [id number] ####Volunteer Services Assistant: JORGE A MALDONADO ([phone])[place] [address] [place] Sodium [Moles/Vol] 141 mmol/L Normal 136-145 [facility] Comment on above: Performed By: #### L AB113, LAB17, [id number] ####Volunteer Services Assistant: JORGE A MALDONADO ([phone])[facility] ([facility])[address] [place] [address] Urea nitrogen [Mass/Vol] 36 mg/dL High 9-23 [facility] Comment on above: Performed By: #### L AB113, LAB17, [id number] ####Volunteer Services Assistant: JORGE A MALDONADO ([phone])[facility] ([facility])[address] [place] [address] Calcium.ionized [Moles/Vol]o n 01-29-2025 Calcium.ionized (Bld) [Moles/Vol] 4.3 mg/dL 4.30 - 5.20 mg/dL [facility] Interpretation and review of laboratory results Normal [facility] PH, IONIZED CALCIUM 7.38 7.31 - 7.46 [facility] Calcium.ionized [Moles/Vol]O rdered By: Katie Huizar on 01-29-2025 Calcium.ionized (Bld) [Moles/Vol] 4.2 mg/dL Low 4.30 - 5.20 mg/dL [facility] Interpretation and review of laboratory results Abnormal [facility] PH, IONIZED CALCIUM 7.38 7.31 - 7.46 [facility] Comprehensive metabolic 1998 panelon 01-29-2025 Albumin [Mass/Vol] 3.6 g/dL 3.4 - 4.8 g/dL [facility] ALP [Catalytic activity/Vol] 118 U/L 40 - 150 U/L [facility] ALT [Catalytic activity/Vol] 13 U/L NINF - 40 U/L [facility] Anion gap [Moles/Vol] 11 mmol/L 3 - 13 mmol/L [facility] AST [Catalytic activity/Vol] 27 U/L NINF - 34 U/L [facility] Bilirubin [Mass/Vol] 1.4 mg/dL High NINF - 1.2 mg/dL [facility] Calcium [Mass/Vol] 9.6 mg/dL 8.8 - 10. 0 mg/dL [facility] Chloride [Moles/Vol] 106 mmol/L 98 - 10 7 mmol/L [facility] CO2 [Moles/Vol] 24 mmol/L 23 - 31 mmol/L [facility] Creatinine [Mass/Vol] 2.08 mg/dL High 0.72 - 1.25 mg/dL [facility] GFR/1.73 sq M.predicted (S/P/Bld) [Vol rate/Area] 30.6 mL/min Low - PINF [facility] Comment on above: Calculation based on the Chronic Kidney Disease Epidemiology Collaboration (CKD-EPI) equation refit without adjustment for race Glucose [Mass/Vol] 107 mg/dL 82 - 115 mg/dL [facility] Interpretation and review of laboratory results Abnormal [facility] Potassium [Moles/Vol] 3.4 mmol/L Low 3.5 - 5.1 mmol/L [facility] Comment on above: Plasma potassium erika ues may be up to 0.5 mmol/L lower than serum values. Protein [Mass/Vol] 7.1 g/dL 6.4 - 8.3 g/dL [facility] Sodium [Moles/Vol] 141 mmol/L 136 - 145 mmol/L [facility] Urea nitrogen [Mass/Vol] 36 mg/dL High 9 - 23 mg/d L [facility] Consulton 01-29-2025 Consult Attestation signed by Donovan Hoffman MD at 01/29/2025 1:12 PM I, Dr. Donovan Hoffman, saw and evaluated the patient in / B. I personally obtained the velazquez and critical portions of the history and physical exam. I reviewed the chart, the fellow's documentation, and discussed the patient with the fellow. I agree with the fellow's medical decision making and have edited the note to reflect my clinical findings and my assessment and plan. In summary, Mr. Nascimento is an 84-year-old man with a history of CKD stage IV, history of PE, heart failure with reduced ejection fraction, hypertension who who presented to [facility] with a chief complaint of shortness of breath and volume overload. He was seen by Dr. Lund yesterday and transferred here to [facility] due to lack of beds. IV diuresis was started. Last transthoracic echocardiogram was from 2021 and showed left ventricular ejection fraction 40%. Urine output is not being collected completely, and creatinine is improved from 2.3-1.8. On exam he remains massively volume overloaded. His current medications include Entresto low-dose twice daily, metoprolol succinate 100 mg/day, and he is receiving furosemide 80 mg IV twice daily. Today we will continue IV diuresis and we will continue to monitor. Donovan Hoffman MD, PhD Advanced Heart Failure Cardiology [facility] [place] 1:12 PM 01/29/25 [facility] Cardiology /Electrophysiology Consult Note Reason for Consult/Chief Complaint: Dyspnea Referring provider: Dr. Hall Established inside technical sales representative: Dr. Roth History of Present Illness: Megan Nascimento is a 84 y.o. 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 He endorses exertional dyspnea and orthopnea as well. When his symptoms initially started, he was seen at Dr. Roth's office where his home torsemide dose was increased from 20 mg twice daily to 60 mg, as it was presumed that he had gained about 20 pounds in this time period. However his symptoms did not significantly improve and he decided to seek medical attention. BNP on admission was 23,000. Initially presented at [facility] but transferred here for further management. This morning, he is doing well, denies any ongoing symptoms except orthopnea and pedal edema. Continues to be hypervolemic on exam. Denies any ongoing chest pain, nausea, vomiting, palpitations, presyncope or syncope symptoms. I's and O's reveal a net negative of -350 mL since admission. Labs, vitals and telemetry reviewed. 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 He was taken off MRA due to worsening renal dysfunction and hyperkalemia. - Home dose torsemide 20 mg twice daily GABI on CKD stage IV - Baseline thought to be around 2.3, however his renal function improved with diuresis. Creatinine at 1.8 this a.m. Hypokalemia - Replete as needed Heart failure team will continue to follow Medications: Scheduled Meds[1] Infusion Medications: Continuous Meds[2] Physical Examination: Vitals: 01/29/25 0054 01/29/25 0300 01/29/25 0447 01/29/25 0808 BP: 115/59 123/67 128/71 BP Location: Right arm Right arm Right arm Patient Position: Lying Lying Lying Pulse: 71 67 76 Resp: 14 14 18 Temp: 36.1 ?C (97 ?F) 36 ?C (96.8 ?F) (!) 35.9 ?C (96.7 ?F) TempSrc: Temporal Temporal Temporal SpO2: 96% 95% 96% Weight: 192 lb 8 oz (87.3 kg) Height: Intake/Output Summary (Last 24 hours) at 01/29/2025 0816 Last data filed at 01/29/2025 0808 Gross per 24 hour Intake 1260 ml Output 950 ml Net 310 ml Wt Readings from Last 3 Encounters: 01/29/25 192 lb 8 oz (87.3 kg) 01/26/25 194 lb 9.6 oz (88.3 kg) 09/22/24 180 lb (81.6 kg) Physical Exam Constitutional: Appearance: Normal appearance. Cardiovascular: Rate and Rhythm: Normal rate and regular rhythm. Pulses: Normal pulses. Heart sounds: Normal heart sounds. Pulmonary: Effort: Pulmonary effort is normal. Breath sounds: Normal breath sounds. Neurological: Mental Status: He is alert and oriented to person, place, and time. Laboratory Tests: TROPONIN I, CONVENTIONAL SENSITIVITY TROPONIN I Date Value Ref Range Status 05/14/2021 0.029 0.000 - 0.034 ng/mL Final Comment: . 05/14/2021 0.029 0.000 - (more content not included)... Normal [facility] - Chemistry and C hemistry - challengeon 01-29-2025 Glucose [Mass/Vol] 138 mg/dL High 70 - 100 mg/dL [facility] Magnesium [Mass/Vol] 1.7 mg/dL 1.6 - 2 .6 mg/dL [facility] Glucose [Mass/Vol] 106 mg/dL High 70 - 100 mg/dL [facility] Glucose [Mass/Vol] 114 mg/dL High 70 - 100 mg/dL [facility] Magnesium [Mass/Vol] 1.7 mg/dL 1.6 - 2 .6 mg/dL [facility] Glucose [Mass/Vol] 139 mg/dL High 70 - 100 mg/dL [facility] MAGNESIUMon 01-29-2025 Magnesium [Mass/Vol] 1.7 mg/dL Normal 1.6-2.6 [facility] Comment on above: Result Comment: MIO Klein COMMENTS: Higher values can be expected in females during menses. Performed By: #### L [id number], LAB17, [id number] ####Volunteer Services Assistant: JORGE A MALDONADO ([phone])[address] Magnesium [Mass/Vol] 1.7 mg/dL Normal 1.6-2.6 [facility] Comment on above: Result Comment: MIO R COMMENTS: Higher values can be expected in females during menses. Performed By: #### L [id number], [id number], LAB15 ####Volunteer Services Assistant: JORGE A MALDONADO ([phone])[facility] ([facility])[address] [place] [address] Magnesium [Mass/Vol]on 01-29 Higher values can be expected in females during menses. [facility] Interpretation and review of laboratory results Normal [facility] Higher values can be expected in females during menses. [facility] No Panel Informationon 01-29 Interpretation and review of laboratory results Abnormal [facility] Performed by: [facility], [address] [place] [address] CLIA ID: [id number] [facility] Interpretation and review of laboratory results Normal [facility] Interpretation and review of laboratory results Abnormal [facility] Performed by: [facility], [address] [place] [address] CLIA ID: [id number] [facility] Interpretation and review of laboratory results Abnormal [facility] Performed by: [facility], [address] [place] [address] CLIA ID: [id number] [facility] Interpretation and review of laboratory results Abnormal [facility] Performed by: [facility], [address] [place] [address] CLIA ID: [id number] [facility] PHOSPHORUSon 01-29-2025 Phosphate [Mass/Vol] 2.4 mg/dL Normal 2.3-4.7 [facility] Comment on above: Performed By: #### L [id number], LAB17, [id number] ####Volunteer Services Assistant: JORGE A MALDONADO ([phone])[facility] ([facility])[address] [place] [address] [place] Phosphate [Mass/Vol] 2.7 mg/dL Normal 2.3-4.7 [facility] Comment on above: Performed By: #### L [id number], [id number], LAB15 ####Volunteer Services Assistant: JORGE A MALDONADO ([phone])[facility] ([facility])[address] [place] [address] [place] Phosphate [Moles/Vol]on 01-18 Phosphate [Mass/Vol] 2.4 mg/dL 2.3 - 4 .7 mg/dL [facility] Interpretation and review of laboratory results Normal [facility] Phosphate [Mass/Vol] 2.7 mg/dL 2.3 - 4 .7 mg/dL [facility] 36on 01-28-2025 36 ----- Message from Ralph Roth MD sent at 01/26/2025 5:16 PM EDT ----- Please call Friday for update, thank you Normal [facility] BASIC METABOLIC PANELon 01-18 Anion gap [Moles/Vol] 14 mmol/L High 3-[address] [facility] Comment on above: Performed By: #### L [id number], LAB15, [id number] ####Volunteer Services Assistant: DIGNA MORALES ([phone])[facility] [place] ([facility])[address] Calcium [Mass/Vol] 8.7 mg/dL Low 8.8-10.0 [facility] Comment on above: Performed By: #### L [id number], LAB15, [id number] ####Volunteer Services Assistant: DIGNA MORALES ([phone])[facility] [place] ([facility])[address] Chloride [Moles/Vol] 106 mmol/L Normal 98-107 [facility] Comment on above: Performed By: #### Russell [id number], LAB15, [id number] ####Volunteer Services Assistant: DIGNA MORALES ([phone])[facility] [place] ([facility])[address] CO2 [Moles/Vol] 21 mmol/L Low 23-31 [facility] Comment on above: Performed By: #### Russell [id number], LAB15, [id number] ####Volunteer Services Assistant: DIGNA MORALES ([phone])[facility] [place] ([facility])[address] Creatinine [Mass/Vol] 2.37 mg/dL High 0.72-1.[address] [facility] Comment on above: Performed By: #### L [id number], LAB15, [id number] ####Volunteer Services Assistant: DIGNA MORALES ([phone])[facility] [place] ([facility])[address] [place] [address] [place] GLOMERULAR FILTRATION RATE ML/MIN/1.73 SQ M.PREDICTED 26.2 mL/min/1.73m*2 Low >60.0 [facility] Comment on above: Result Comment: Calc ulation based on the Chronic Kidney Disease Epidemiology Collaboration (CKD-EPI) equation refit without adjustment for race ORDER COMMENTS: Slightly Hemolyzed Performed By: #### L [id number], LAB15, [id number] ####Volunteer Services Assistant: DIGNA MORALES ([phone])[facility] Glucose [Mass/Vol] 79 mg/dL Low 82-115 [facility] Comment on above: Performed By: #### L [id number], LAB15, [id number] ####Volunteer Services Assistant: DIGNA MORALES ([phone])[facility] ([facility])[address] [place] [address] Potassium [Moles/Vol] 4.2 mmol/L Normal 3.5-5.[address] [facility] Comment on above: Result Comment: TC Significant interference from hemolysis. Result integrity compromised. Interpret with caution. Performed By: #### L [id number], LAB15, [id number] ####Volunteer Services Assistant: DIGNA MORALES ([phone])[facility] ([facility])[address] [place] [address] Sodium [Moles/Vol] 141 mmol/L Normal 136-145 [facility] Comment on above: Performed By: #### L [id number], LAB15, [id number] ####Volunteer Services Assistant: DIGNA MORALES ([phone])[facility] Urea nitrogen [Mass/Vol] 40 mg/dL High 9-23 [facility] Comment on above: Performed By: #### L [id number], LAB15, [id number] ####Volunteer Services Assistant: DIGNA MORALES ([phone])[facility] ([facility])[address] Basic metabolic 1998 panelon 01-28-2025 Anion gap [Moles/Vol] 14 mmol/L High 3 - 13 mmol/L [facility] Calcium [Mass/Vol] 8.7 mg/dL Low 8.8 - 10. 0 mg/dL [facility] Chloride [Moles/Vol] 106 mmol/L 98 - 10 7 mmol/L [facility] CO2 [Moles/Vol] 21 mmol/L Low 23 - 31 mmol/L [facility] Creatinine [Mass/Vol] 2.37 mg/dL High 0.72 - 1.25 mg/dL [facility] GFR/1.73 sq M.predicted (S/P/Bld) [Vol rate/Area] 26.2 mL/min Low - PINF [facility] Comment on above: Calculation based on the Chronic Kidney Disease Epidemiology Collaboration (CKD-EPI) equation refit without adjustment for race Glucose [Mass/Vol] 79 mg/dL Low 82 - 115 mg/dL [facility] Interpretation and review of laboratory results Abnormal [facility] Potassium [Moles/Vol] 4.2 mmol/L 3.5 - 5.1 mmol/L [facility] Comment on above: TC Significant interference from hemolysis. Result integrity compromised. Interpret with caution. Sodium [Moles/Vol] 141 mmol/L 136 - 145 mmol/L [facility] Urea nitrogen [Mass/Vol] 40 mg/dL High 9 - 23 mg/d L [facility] Slightly Hemolyzed [facility] CBC W Auto Differential pane l (Bld)on 01-28-2025 Basophils (Bld) [#/Vol] 0.1 10*3/uL 0.0 - 0.2 10*3/uL [facility] Basophils/100 WBC (Bld) 1.7 % 0.0 - 2.0 % [facility] Eosinophils (Bld) [#/Vol] 0.2 10*3/uL 0.0 - 0.5 10*3/uL [facility] Eosinophils/100 WBC (Bld) 2.9 % 0.0 - 6.0 % [facility] Erythrocyte distribution width (RBC) [Ratio] 19.5 % High 11.5 - 15.0 % [facility] Hematocrit (Bld) [Volume fraction] 46 % 40.0 - 52.0 % [facility] Hemoglobin (Bld) [Mass/Vol] 15.2 g/dL 13.0 - 18.0 g/dL [facility] Immature granulocytes (Bld) [#/Vol] 0 10*3/uL NINF - 0.1 10*3/uL [facility] Immature granulocytes/100 WBC (Bld) 0.3 % 0.0 - 2.0 % [facility] Interpretation and review of laboratory results Abnormal [facility] Lymphocytes (Bld) [#/Vol] 1.3 10*3/uL 1.0 - 4.3 10*3/uL [facility] Lymphocytes/100 WBC (Bld) 22.5 % 15.0 - 45.0 % [facility] MCH (RBC) [Entitic mass] 28.8 pg 26. 0 - 34.0 pg [facility] MCHC (RBC) [Mass/Vol] 33 % 30.5 - 36.0 % [facility] MCV (RBC) [Entitic vol] 87.3 fL 77.0 - 99.0 fL [facility] Monocytes (Bld) [#/Vol] 0.5 10*3/uL 0.0 - 0.9 10*3/uL [facility] Monocytes/100 WBC (Bld) 8.7 % 5.0 - 13.0 % [facility] Neutrophils (Bld) [#/Vol] 3.8 10*3/uL 1.8 - 7.5 10*3/uL [facility] Neutrophils/100 WBC (Bld) 63.9 % 38.0 - 82.0 % [facility] Nucleated RBC/100 WBC (Bld) [Ratio] 0 % [facility] Platelet mean volume (Bld) [Entitic vol] 10.4 fL 9.0 - 12.7 fL [facility] Platelets (Bld) [#/Vol] 230 10*3/uL 140 - 440 10*3/uL [facility] RBC (Bld) [#/Vol] 5.27 10*6/uL 4.40 - 5.9 0 10*6/uL [facility] WBC (Bld) [#/Vol] 5.9 10*3/uL 3.6 - 10.7 10*3/uL [facility] CBC WITH AUTO DIFFERENTIALon 01-28-2025 Basophils (Bld) [#/Vol] 0.1 10*3/uL Normal 0.0-0.2 [facility] Comment on above: Performed By: #### L [id number] ####Volunteer Services Assistant: DIGNA ROJASREX ([phone])[facility] [place] ([facility])[address] Basophils/100 WBC (Bld) 1.7 % Normal 0.0-2.0 [facility] Comment on above: Performed By: #### L [id number] ####Volunteer Services Assistant: DIGNA ROJASREX ([id number])[facility] [place] ([facility])[address] Eosinophils (Bld) [#/Vol] 0.2 10*3/uL Normal 0.0-0.5 [facility] Comment on above: Performed By: #### L [id number] ####Volunteer Services Assistant: DIGNA ARANAILYA ([phone])[facility] [place] ([facility])[address] Eosinophils/100 WBC (Bld) 2.9 % Normal 0.0-6.0 [facility] Comment on above: Performed By: #### L [id number] ####Volunteer Services Assistant: DIGNA ARANAILYA ([phone])[facility] [place] ([facility])[address] Erythrocyte distribution width (RBC) [Ratio] 19.5 % High 11.5-15.0 [facility] Comment on above: Performed By: #### L [id number] ####Volunteer Services Assistant: DIGNA MORALES ([phone])[facility] [place] ([facility])[address] Hematocrit (Bld) [Volume fraction] 46.0 % Normal 40.0-52.0 [facility] Comment on above: Performed By: #### L [id number] ####Volunteer Services Assistant: DIGNA ROJASREX ([id number])[facility] [place] ([facility])[address] Hemoglobin (Bld) [Mass/Vol] 15.2 g/dL Normal 13.0-18.0 [facility] Comment on above: Performed By: #### L [id number] ####Volunteer Services Assistant: DIGNA MORALES ([phone])[facility] ([facility])[address] IMMATURE GRANS % 0.3 % Normal 0.0-2.0 [facility] Comment on above: Performed By: #### L [id number] ####Volunteer Services Assistant: DIGNA MORALES ([phone])[facility] ([facility])[address] IMMATURE GRANS ABSOLUTE 0.0 10*3/uL Normal <0.1 [facility] Comment on above: Performed By: #### L [id number] ####Volunteer Services Assistant: DIGNA MORALES ([phone])[facility] [place] ([facility])[address] [place] [address] Lymphocytes (Bld) [#/Vol] 1.3 10*3/uL Normal 1.0-4.3 [facility] Comment on above: Performed By: #### L [id number] ####Volunteer Services Assistant: DIGNA MORALES ([id number])[facility] ([facility])[address] [place] [address] Lymphocytes/100 WBC (Bld) 22.5 % Normal 15.0-45.0 [facility] Comment on above: Performed By: #### L [id number] ####Volunteer Services Assistant: DIGNA MORALES ([phone])[facility] ([facility])[address] [place] [address] MCH (RBC) [Entitic mass] 28.8 pg Normal 26.0-34.0 [facility] Comment on above: Performed By: #### L [id number] ####Volunteer Services Assistant: DIGNA MORALES ([phone])[facility] ([facility])[address] MCHC 33.0 % Normal 30.5-36.0 [facility] Comment on above: Performed By: #### L [id number] ####Volunteer Services Assistant: DIGNA MORALES ([phone])[facility] [place] ([facility])[address] MCV (RBC) [Entitic vol] 87.3 fL Normal 77.0-99.0 [facility] Comment on above: Performed By: #### L [id number] ####Volunteer Services Assistant: DIGNA MORALES ([phone])[facility] [place] ([facility])[address] Monocytes (Bld) [#/Vol] 0.5 10*3/uL Normal 0.0-0.9 [facility] Comment on above: Performed By: #### L [id number] ####Volunteer Services Assistant: DIGNA MORALES ([phone])[facility] [place] ([facility])[address] Monocytes/100 WBC (Bld) 8.7 % Normal 5.0-13.0 [facility] Comment on above: Performed By: #### L [id number] ####Volunteer Services Assistant: DIGNA MORALES ([phone])[facility] [place] ([facility])[address] NEUTROPHILS ABSOLUTE 3.8 10*3/uL Normal 1.8-7.5 [facility] Comment on above: Performed By: #### L [id number] ####Volunteer Services Assistant: DIGNA MORALES ([phone])[facility] [place] ([facility])[address] Neutrophils/100 WBC (Bld) 63.9 % Normal 38.0-82.0 [facility] Comment on above: Performed By: #### L [id number] ####Volunteer Services Assistant: DIGNA MORALES ([phone])[facility] [place] ([facility])[address] NRBC 0.0 /100 WBCs Normal 0.0-2.0 [facility] Comment on above: Performed By: #### L [id number] ####Volunteer Services Assistant: DIGNA MORALES ([id number])[facility]ITAL[facility] [place] ([facility])[address] Platelet mean volume (Bld) [Entitic vol] 10.4 fL Normal 9.0-12.7 [facility] Comment on above: Performed By: #### L [id number] ####Volunteer Services Assistant: DIGNA MORALES ([phone])[facility]ITALCarl[facility] ([facility])[address] Platelets (Bld) [#/Vol] 230 10*3/uL Normal 140-440 [facility] Comment on above: Performed By: #### L [id number] ####Volunteer Services Assistant: DIGNA MORALES ([phone])[facility]ITAL[facility] ([facility])[address] RBC (Bld) [#/Vol] 5.27 10*6/uL Normal 4.40-5.90 [facility] Comment on above: Performed By: #### L [id number] ####Volunteer Services Assistant: DIGNA MORALES ([phone])[facility]ITAL[facility] ([facility])[address] WBC (Bld) [#/Vol] 5.9 10*3/uL Normal 3.6-10.7 [facility] Comment on above: Performed By: #### L [id number] ####Volunteer Services Assistant: DIGNA MORALES ([phone])[facility] ([facility])[address] ECG 12-LEADon 01-28-2025 ECG 12-LEAD IMPRESSION: Ventricular-paced rhythm No further analysis attempted due to paced rhythm Electronically Signed On 01-28-2025 17:24:48 EDT by Eduardo Feliciano [facility] ED Nursing Noteon 01-28-2025 ED Nursing Note Report given to Amos Crooks for transfer to [facility] ED Nursing Note Report called to Ca Mojica RN Normal [facility] ED Nursing Note 250 cc of urine empted this am, pt wheeled to restroom, voided and stooled. Normal [facility] ED Nursing Note No cardiac monitoring available at this time. Provider aware Normal [facility] ED Provider Noteon ED Provider Note EMERGENCY DEPARTMENT ENCOUNTER Pt Name: Megan Nascimento Birthdate 1940 Date of evaluation: 01/28/2025 ED Provider: Latricia Landa DO CHIEF COMPLAINT Chief Complaint Patient presents with Congestive Heart Failure Retaining fluid, incomplete urination. Increased lasix yesterday at PMD HISTORY OF PRESENT ILLNESS (Location/Symptom, Timing/Onset, Context/Setting, Quality, Duration, Modifying Factors, Severity) Note limiting factors. I wore appropriate PPE for the entirety of this encounter. HPI Megan Nascimento is a 84 y.o. male medical history of CHF with reduced ejection fraction (41% 2021), AICD, CKD 3, history of DVT/PE, hypertension, hyperlipidemia, diabetes, hypothyroidism, non-Hodgkin's lymphoma, bladder cancer who presents to the emergency department with fluid overload/CHF exacerbation. Endorsing progressively worsening lower extremity edema over the last 3 weeks. Endorses scrotal edema over the last few days. Additionally endorsing 100 foot exertional dyspnea and orthopnea. Asymptomatic while at rest. Denies chest pain. 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 Diuretic dosing increased. Despite increased dosing of diuretic and taking 3 doses of increased diuretic, continuing to gain weight. States that he is up 1 pound from yesterday. Nursing Notes were reviewed. Limitations to history: None Outside historians: Family daughters REVIEW OF SYSTEMS Review of Systems Negative except per HPI PAST MEDICAL HISTORY Medical History[1] SURGICAL HISTORY Surgical History[2] CURRENT MEDICATIONS Previous Medications CHOLECALCIFEROL (VITAMIN D-3) 25 MCG (1000 UT) CAPSULE Take by mouth. CYANOCOBALAMIN (VITAMIN B-12) 1000 MCG TABLET Take 1 tablet by mouth in the morning. FERROUS SULFATE 325 (65 FE) MG TABLET Take 325 mg by mouth. GABAPENTIN (NEURONTIN) 100 MG CAPSULE Take 100 mg by mouth. GLIMEPIRIDE (AMARYL) 1 MG TABLET Take 1 mg by mouth daily (with breakfast). LEVOTHYROXINE (SYNTHROID, LEVOXYL) 25 MCG TABLET Take 25 mcg by mouth in the morning. METOPROLOL SUCCINATE XL (TOPROL-XL) 100 MG 24 HR TABLET Take 100 mg by mouth in the morning. MULTIPLE VITAMIN (MULTIVITAMIN) TABLET Take 1 tablet by mouth daily. PANTOPRAZOLE (PROTONIX) 40 MG EC TABLET daily ROSUVASTATIN (CRESTOR) 20 MG TABLET Take 20 mg by mouth daily. SACUBITRIL-VALSARTAN (ENTRESTO) 24-26 MG TABLET Take 1 tablet by mouth in the morning and 1 tablet before bedtime. SERTRALINE (ZOLOFT) 25 MG TABLET Take 25 mg by mouth in the morning. SUCRALFATE (CARAFATE) 1 G TABLET Take 1 g by mouth. TADALAFIL (CIALIS) 20 MG TABLET Take 1 tablet (20 mg) by mouth Daily as needed for erectile dysfunction. TAMSULOSIN (FLOMAX) 0.4 MG 24 HR CAPSULE Take 0.4 mg by mouth in the morning. TORSEMIDE (DEMADEX) 20 MG TABLET Take 1 tablet (20 mg) by mouth in the morning and 1 tablet (20 mg) in the evening. ALLERGIES Atorvastatin, Latanoprost, Lovastatin, and Other FAMILY HISTORY Family History[3] SOCIAL HISTORY Social History[4] SCREENINGS PHYSICAL EXAM ED Triage Vitals [01/28/25 0145] Temp Heart Rate Resp BP 36.6 ?C (97.9 ?F) 76 24 123/73 SpO2 Temp Source Heart Rate Source Patient Position 99 % Temporal Monitor -- BP Location FiO2 (%) -- -- Physical Exam BP 123/73 Pulse 76 Temp 36.6 ?C (97.9 ?F) (Temporal) Resp 24 Ht 1.702 m (5' 7) Wt 88.7 kg (195 lb 8 oz) SpO2 99% BMI 30.62 kg/m? Constitutional: Alert, awake Lungs: CTABL, no wheezing, no rales. Conversational Heart: RRR , no murmurs, equal distal pulses to extremities, 3+ pitting edema bilateral lower extremities : Nonerythematous nontender edema scrotum. No scrotal or penile lesions. Normal testicular lie. No scrotal, testicular or epididymal tenderness or edema. Bilateral inguinal fold Geovanna infection DIAGNOSTIC RESULTS RADIOLOGY (Per Emergency Physician): Chest x-ray Cardiomegaly with pulmonary edema and small pleural effusions Interpretation per the Radiologist below, if available at the time of this note: XR chest 1 view Final Result See findings. Report Dictated on Electronically Signed By: David Preston MD Electronically Signed Date/Time: 01/28/2025 2:33 AM EDT LABS: Labs Reviewed BASIC METABOLIC PANEL - Abnormal Result Value SODIUM 141 POTASSIUM 4.2 CHLORIDE 106 CARBON DIOXIDE 21 (*) UREA NITROGEN 40 (*) CREATININE 2.37 (*) GLUCOSE 79 (*) CALCIUM 8.7 (*) ANION GAP 14 (*) eGFR 26.2 (*) Narrative: Slightly Hemolyzed CBC WITH AUTO DIFFERENTIAL - Abnormal Auto WBC 5.9 RBC 5.27 Hemoglobin 15.2 Hematocrit 46.0 MCV 87.3 MCH 28.8 MCHC 33.0 RDW 19.5 (*) Platelets 230 MPV 10.4 nRBC 0.0 Neutrophils Relative 63.9 Lymphocytes Relative 22.5 Monocytes Relative 8.7 Eosinophils Relative 2.9 Basophils Relative 1.7 Immature Grans % 0.3 Neutrophils Absolute 3.8 Lymphocytes Absolute 1.3 Mon (more content not included)... Normal [facility] HIGH SENSITIVITY TROPONIN, S ERIAL BASELINEon 01-28-2025 TROPONIN HS SERIAL BASELINE 32 ng/L Normal <=35 [facility] Comment on above: Result Comment: In i ndividuals presenting with symptoms > 2h, a baseline troponin <= 5 ng/L suggests acute cardiac injury is unlikely and further serial testing is generally not indicated. Performed By: #### L [id number], LAB15, [id number] ####Volunteer Services Assistant: DIGNA MORALES ([phone])[facility] ([facility])[address] [place] [address] Laboratory - Chemistry and C hemistry - challengeon 01-28-2025 Glucose [Mass/Vol] 167 mg/dL High 70 - 100 mg/dL [facility] Glucose [Mass/Vol] 113 mg/dL High 70 - 100 mg/dL [facility] Glucose [Mass/Vol] 89 mg/dL 70 - 100 mg/dL [facility] Glucose [Mass/Vol] 74 mg/dL 70 - 100 mg/dL [facility] Glucose [Mass/Vol] 124 mg/dL High 70 - 100 mg/dL [facility] NT PRO BNPon 01-28-2025 Natriuretic peptide B (Bld) [Mass/Vol] 50794 pg/mL High <450 [facility] Comment on above: Performed By: #### L [id number], LAB15, [id number] ####Volunteer Services Assistant: DIGNA MORALES ([phone])[facility] ([facility])[address] [place] [address] [place] Natriuretic peptide B [Mass/ Vol]on 01-28-2025 Interpretation and review of laboratory results Abnormal [facility] Natriuretic peptide B (Bld) [Mass/Vol] 49762 pg/mL High NINF - 450 pg/mL [facility] No Panel Informationon 01-28 Interpretation and review of laboratory results Abnormal [facility] Performed by: [address] [address] CLIA ID: [id number] [facility] Interpretation and review of laboratory results Abnormal [facility] Performed by: [address] [address] CLIA ID: [id number] [facility] Ventricular-paced rhythm No further analysis attempted due to paced rhythm Electronically Signed On 01-28-2025 17:24:48 EDT by Eduardo Feliciano CV Eduardo Drake MD - 01/28/2025 IMPRESSION: Ventricular-paced rhythm No further analysis attempted due to paced rhythm Electronically Signed On 01-28-2025 17:24:48 EDT by Eduardo Feliciano [facility] Interpretation and review of laboratory results Normal [facility] Performed by: Tutu Romeo [address] [place] [id number] CLIA ID: [id number] [facility] Interpretation and review of laboratory results Normal [facility] Performed by: Tutu Romeo [address] [place] [id number] CLIA ID: [id number] [facility] Interpretation and review of laboratory results Abnormal [facility] Performed by: Tutu Romeo [address] [place] [address] CLIA ID: [id number] [facility] Interpretation and review of laboratory results Normal [facility] Troponin HS Serial Baseline 32 ng/L NINF - 35 ng/L [employer] Comment on above: In individuals prese nting with symptoms > 2h, a baseline troponin <= 5 ng/L suggests acute cardiac injury is unlikely and further serial testing is generally not indicated. [employer] No Panel InformationOrdered By: Eduardo Feliciano on 01-28-2025 P [place] 55 degrees [employer] Work Phone: TN Interval 264 ms [employer] Work Phone: QRS [place] 223 degrees [employer] Work Phone: QRSD Interval 144 ms [employer] Work Phone: QT Interval 469 ms [employer] Work Phone: QTC Interval 507 ms [employer] Work Phone: T Wave [place] 37 degrees [employer] Phone: [employer] Work Phone: Vital signsOrdered By: Eduardo Feliciano on 01-28-2025 Heart rate 70 /min bpm [employer] Work Phone: XR Chest Single viewon 01-28 See findings. Report Dictated on Electronically Signed By: David Preston MD Electronically Signed Date/Time: 01/28/2025 2:33 AM [facility] RAD[facility]OLOGY [facility] Patient Name: MEGAN NASCIMENTO : 1940 [facility]#: [id number] Exam Date/Time: 01/28/2025 02:17 Procedure: XR CHEST 1 VIEW Ordering Provider: LANDA KATHRYN Reason For Exam: CHEST PAIN; Chest Pain CHEST X-RAY CLINICAL INDICATION: CHEST PAIN; Chest Pain TECHNIQUE: AP COMPARISON: 05/13/2021 FINDINGS: Quality: Unremarkable. Lines: None Cardiomediastinal Silhouette: The cardiac silhouette is enlarged. Calcification of the thoracic aortic is noted. A left sided permanent pacemaker is noted with tips extending to the region of the right atrium and right and left ventricle. Lungs: Perihilar vascular congestion is noted with interstitial opacities, compatible with pulmonary edema.. Blunting of the costophrenic angles corresponds to pleural fluid. Soft tissue: The soft tissue structures appear unremarkable. Bones: Degenerative change of the thoracic spine is noted. [facility] RADIOLOGY SYSTEM David Preston MD - 01/28/2025 [facility] 1940 [id number] Exam Date/Time: 01/28/2025 02:17 Procedure: XR CHEST 1 VIEW Ordering Provider: LANDA KATHRYN Reason For Exam: CHEST PAIN; Chest Pain CHEST X-RAY CLINICAL INDICATION: CHEST PAIN; Chest Pain TECHNIQUE: AP COMPARISON: 05/13/2021 FINDINGS: Quality: Unremarkable. Lines: None Cardiomediastinal Silhouette: The cardiac silhouette is enlarged. Calcification of the thoracic aortic is noted. A left sided permanent pacemaker is noted with tips extending to the region of the right atrium and right and left ventricle. Lungs: Perihilar vascular congestion is noted with interstitial opacities, compatible with pulmonary edema.. Blunting of the costophrenic angles corresponds to pleural fluid. Soft tissue: The soft tissue structures appear unremarkable. Bones: Degenerative change of the thoracic spine is noted. IMPRESSION: See findings. Report Dictated on Electronically Signed By: David Preston MD Electronically Signed Date/Time: 01/28/2025 2:33 AM EDT [facility] Radiology Study observation (narrative) [facility] alth XR Chest Single viewOrdered By: David Preston on 01-28-2025 [facility] [employer] Work Phone: No Panel Informationon 01-26 Sinus Rhythm -First degree A-V block -A sesi, V pacing ABNORMAL [facility] Office Visiton 01-26-2025 Follow-up visit [id number] Megan Nascimento 1940 M Date Provider Department Center 01/26/2025 [id number] ROTH SH[facility] VARUN [facility] CV Susan Family History Problem Relation Age of Onset High Blood Pressure Father High Blood Pressure Mother Family Status - Relation Status Age at Father Mother Level of Service:11288 [place] OFFICE/OUTPATIENT ESTABLISHED MOD MDM 30 MIN Reason for Visit and Comments: Follow-up [392238] Normal [facility] Progress Noteon 01-26-2025 Progress Note [facility] [place] [address] [place] [address] [facility] [address] Dept: [phone] Dept Loc: [phone] DATE of SERVICE:01/26/25 TIME of SERVICE: 3:59 PM : 1940 Chief Complaint: Chief Complaint Patient presents with Follow-up History of PresentIllness: Megan Nascimento is a 84 y.o. male here for a semiurgent visit. His history includes Nonischemic cardiomyopathy, left ventricular ejection fraction 20% increased to 41% after cardiac resynchronization therapy and defibrillator placement. Heart failure with reduced left ventricular ejection fraction Stage IV chronic kidney disease, glomerular filtration rates in the 20s, last 126, creatinine 2.4 History of gastrointestinal bleeding and venous thromboembolic disease with pulmonary embolism. Cholecystitis, status post tube drainage due to his age and medical problems, did not have a cholecystectomy He was in his usual state of pretty good health until about 6 to 8 weeks ago when he had some epigastric discomfort, orthopnea, weight gain, and edema. He is also developed worsening shortness of breath. He thought he might be having gallbladder problems so he went to the hospital in [place]. Before he might have diverticulitis. His creatinine at that time was 2.4, GFR 26, hemoglobin 12.9. He continued to have symptoms and is here today with worsening edema, dyspnea, orthopnea. Past Medical History: Medical History[1] Past Surgical History Surgical History[2] Family History Family History[3] Social History Social History[4] Allergies: Allergies[5] Medications: Current Medications[6] Review of Systems: Review of Systems Constitutional: Negative for activity change, chills, diaphoresis, fatigue and fever. HENT: Negative for nosebleeds and trouble swallowing. Eyes: Negative for discharge and visual disturbance. Respiratory: Positive for shortness of breath. Negative for apnea, cough, chest tightness and wheezing. Cardiovascular: Positive for leg swelling. Negative for chest pain and palpitations. Gastrointestinal: Negative for abdominal distention, abdominal pain, blood in stool, diarrhea, nausea and vomiting. Endocrine: Negative for cold intolerance and heat intolerance. Genitourinary: Negative for hematuria. Musculoskeletal: Negative for gait problem and myalgias. Skin: Negative for color change and rash. Neurological: Negative for dizziness, seizures, syncope, facial asymmetry, speech difficulty, weakness, light-headedness, numbness and headaches. Hematological: Does not bruise/bleed easily. Psychiatric/Behavior al: Negative for dysphoric mood. Physical Examination: Vitals: Vitals: 01/26/25 1546 BP: 124/80 BP Location: Right arm Patient Position: Sitting BP Cuff Size: Large adult Pulse: 79 SpO2: 100% Weight: 194 lb 9.6 oz (88.3 kg) Height: 5' 7 (1.702 m) Body mass index is 30.48 kg/m?. Physical Exam He appears frail but in no acute distress. He has jugular venous distention, soft heart sounds, clear lungs, and severe bilateral pitting pretibial edema. Laboratory Tests: Lab Results Component Value Date WBC 9.4 01/09/2024 HGB 12.6 (L) 01/09/2024 HCT 38.0 (L) 01/09/2024 MCV 88.8 01/09/2024 PLT 258 01/09/2024 Lab Results Component Value Date GLUCOSE 137 (H) 01/09/2024 CALCIUM 9.5 01/09/2024 NA 136 06/05/2022 K 5.1 06/05/2022 CO2 25 01/09/2024 CL 96 (L) 06/05/2022 BUN 51 (H) 01/09/2024 CREATININE 2.34 (H) 01/09/2024 @LASTP@ Lab Results Component Value Date CHOL 166 05/14/2021 Lab Results Component Value Date TRIG 109 05/14/2021 Lab Results Component Value Date HDL 34 (L) 05/14/2021 No results found for: LDLCALC NT PRO BNP Date Value Ref Range Status 05/19/2021 25,350 (H) 0 - 450 pg/mL Final Cardiac Tests: ECG: Sinus rhythm, atrial sensing, first-degree AV block, ventricular pacing Focused cardiac ultrasound: Not done Electrophysiology Tech present for focused cardiac ultrasound: Not applicable Assessment and Plan: 1. Primary hypertension Medical decision making My assessment is that he has acute on chronic systolic heart failure in the setting of advanced renal failure. He has had a history of pulmonary embolism and venous thromboembolic disease (probably not active) and advanced renal failure. Diagnostically, I sent a follow-up CBC, comprehensive metabolic panel therapeutically, increased his torsemide from 20 mg twice a day to 60 mg once a day. Educationally, explained this to him, his daughter, and his ex-. We will call him Friday for progress report. He probably has about 15 to 20 pounds to lose. If we cannot improve things we will bring him in the hospital for IV diuretics. Will also get him back in a month. I, Ralph Roth MD, furnished ongoing care related to heart failure for their management, a serious and complex condition. I assum (more content not included)... Normal [facility] 01-25-2025 36 PC to patient. Reviewed RBC recommendations. Reminded of appt tomorrow. He verbalized understanding. Normal [facility] 36 PC to patient. LMOM to call office Normal [facility] 36 PC to patient. LMOM he can take an extra torsemide 20 mg today. He is to call me back to confirm he received message. Normal [facility] 3601-24-2025 36 PC to patient. Leg swelling started last week after he went on a road trip to [place]. They did stop and get out of the car to walk around but not too often. He denies redness, pain or warmth in his legs. His swelling does go down overnight. He also notes some SOB that comes and goes. He states when that happens, he will put his oxygen on. His weight has been stable at 184 lbs. Denies any abdominal bloating, dizziness or lightheadedness. He also notes he is not urinating as much and that his urine is dark. He is not drinking enough water, he states he will go up to 3 bottles of water a day. I asked him to try to drink about 4. He does check BP at home right around 130/60. He had lab work done in late November that is in [facility]. He is asking if he should take extra torsemide. Will send to [facility]. He is due for appt. Scheduled him for this Friday at 3:20. He verbalized understanding. Normal [facility] 36 Pt stating having sob and leg swelling Normal [facility] Abdomen/Pelvis without Conto n 12-12-2024 Abdomen/Pelvis without Cont [facility] Imaging Services [address] [place] [address] Abdomen/Pelvis without Cont MR#: [id number] Acct: [id number] Name: MEGAN NASCIMENTO Rep #: [id number] : 1940 M 84 From: [place] Mccoy DO PCP: Dr. Rigoberto Durand MD Status: REG ER Study: Abdomen/Pelvis without Cont Date of Exam: 11/19 12/12 Exam# [id number] Ordering Dr: Rena Franklin ADDENDUM by Dr. [place] Mccoy DO on 12/12/24 at 1435 Addendum created to complete C3-4 Bones: L4 compression fracture treated with vertebroplasty. No aggressive lytic or blastic bone lesions Impression Inflammatory process in the right lower quadrant, likely diverticulitis, with small volume free fluid, a bit more than trace, likely in the sigmoid colon which traverses across the pelvis to the right lower quadrant. Reading Location: [facility] 12/12/241434 Date cc: Dr. Rigoberto Durand MD; DASIA Faye * Signed PROCEDURE: ABDOMEN/PELVIS WITHOUT CONT 12/12/2024 REASON FOR EXAM: ABDOMINAL PAIN TECHNIQUE: Abdomen and pelvis CT without intravenous contrast. Noncontrast technique limits evaluation of the abdominal and pelvic viscera. Coronal and Sagittal reconstruction series were provided. One or more dose reduction techniques were used (e.g., Automated exposure control, adjustment of the mA and/or kV according to patient size, use of iterative reconstruction technique). PATIENT PREPARATION: Per protocol ORAL CONTRAST TYPE: None. COMPARISON: None FINDINGS: Lung bases: Moderate right pleural effusion and small left pleural effusion. Lungs are clear. Hiatal hernia is present. Liver: Liver, spleen, pancreas, adrenal glands and right kidney are unremarkable. 2 cysts from the left renal cortex appear simple, Bosniak 1, requiring no follow-up. Gallbladder: Several small gallstones are present. No evidence of inflammatory process involving the gallbladder. Bladder, prostate and seminal vesicles: Unremarkable. Bowel: Possible mural thickening in the cecum. Diverticulosis of the descending and sigmoid colon. Appendix: Trace free fluid adjacent to the cecum. Periappendiceal inflammatory process is not seen, the appendix is not identified Lymph nodes: No lymph nodes that would be considered pathologic by size criteria Vasculature: densely calcified abdominal aorta with normal caliber Peritoneum / Retroperitoneum: Bones: CT/Abdomen/Pelvis without Cont IMPRESSION: OVERALL FINAL ASSESSMENT: . LI-RADS is not meant to be used in patients <18 years or patients with cirrhosis due to congenital hepatic fibrosis or due to vascular disorders, because these patients have a lower chance of developing HCC. Reading Location: [facility] CC: Dr. Rigoberto Durand MD; DASIA Faye Vice President Sales And Marketing: Signed Normal [facility] Absolute lymphocyte countOrd ered By: Rena Franklin on 12-12-2024 Lymphocytes Auto (Unsp spec) [#/Vol] 1.05 10*3/uL 0.83-4.51 [facility] Absolute neutrophil countOrd ered By: Rena Franklin on 12-12-2024 Neutrophils (Bld) [#/Vol] 4.6 10*3/uL 2.0-7.7 [facility] Anion gap in Serum or Plasma Ordered By: Rena Franklin on 12-12-2024 Anion gap [Moles/Vol] 17 mmol/L High 5-15 [facility] Automated lymphocyte count a s percentage of total leukocytesOrdered By: Rena Franklin on 12-12-2024 Lymphocytes/100 WBC Auto (Unsp spec) 16.7 % Low 19-41 [facility] BUN/creatinine ratioOrdered By: Rena Franklin on 12-12-2024 Urea nitrogen/Creatinine [Mass ratio] 14.4 mg/mg 10-20 [facility] Basophil percentageOrdered B y: Rena Franklin on 12-12-2024 Basophils/100 WBC (Bld) 1.3 % High 0-1 [facility] Bilirubin Test strip Ql (U)O rdered By: Rena Franklin on 12-12-2024 Bilirubin Ql (U) Negative Negative [facility] Bilirubin, totalOrdered By: Rena Franklin on 12-12-2024 Bilirubin [Mass/Vol] 0.83 mg/dL 0.00-1.30 [facility] CBC W/Diff, Automatedon 11-19 Absolute Lymph 1.05 X10 3/uL Normal 0.83-4.51 [facility] Comment on above: Performed By: #### L 501.2450, L500.4050, L100.0100 ####[facility] [address] [place], [address] Absolute Neut 4.6 X10 3/uL Normal 2.0-7.7 [facility] Comment on above: Performed By: #### L 501.2450, L500.4050, L100.0100 ####[facility] [address] [place], [address] Basophils/100 WBC (Bld) 1.3 % High 0-1 [facility] Comment on above: Performed By: #### L 501.2450, L500.4050, L100.0100 ####[facility] [address] [place], [address] Eosinophils/100 WBC (Bld) 2.4 % Normal 0-5 [facility] Comment on above: Performed By: #### L 501.2450, L500.4050, L100.0100 ####[facility] [address] [place], [address] Erythrocyte distribution width (RBC) [Ratio] 16.2 % High 11.6-14.6 [facility] Comment on above: Performed By: #### L 501.2450, L500.4050, L100.0100 ####[facility] [address] [place], [address] Hematocrit (Bld) [Volume fraction] 39.7 % Low 40-54 [facility] Comment on above: Performed By: #### L 501.2450, L500.4050, L100.0100 ####[facility] [address] [place], [address] Hemoglobin (Bld) [Mass/Vol] 12.9 g/dL Low 13.0-16.5 [facility] Comment on above: Performed By: #### L 501.2450, L500.4050, L100.0100 ####[facility] [address] [place], [address] IG% 0.500 Normal 0.0-0.9 [facility] Comment on above: Result Comment: IG% - Immature Granulocytes (promyelocytes, myelocytes and metamyelocytes) > 1% indicates that a LEFT SHIFT is Present. Performed By: #### L 501.2450, L500.4050, L100.0100 ####[facility] [address] [place], [address] Lymphocytes/100 WBC (Bld) 16.7 % Low 19-41 [facility] Comment on above: Performed By: #### L 501.2450, L500.4050, L100.0100 ####[facility] [address] [place], [address] MCH (RBC) [Entitic mass] 28.9 pg Normal 27.0-32.0 [facility] Comment on above: Performed By: #### L 501.2450, L500.4050, L100.0100 ####[facility] [address] [place], [address] MCHC (RBC) [Mass/Vol] 32.5 g/dL Normal 32-36 [facility] Comment on above: Performed By: #### L 501.2450, L500.4050, L100.0100 ####[facility] [address] [place], [address] MCV (RBC) [Entitic vol] 89.0 fL Normal 80-94 [facility] Comment on above: Performed By: #### L 501.2450, L500.4050, L100.0100 ####[facility] [address] [place], [address] Monocytes/100 WBC (Bld) 6.3 % Normal 0-10 [facility] Comment on above: Performed By: #### L 501.2450, L500.4050, L100.0100 ####[facility] [address] [place], [address] Neutrophils/100 WBC (Bld) 72.8 % High 47-70 [facility] Comment on above: Performed By: #### L 501.2450, L500.4050, L100.0100 ####[facility] [address] [place], [address] Nucleated RBC (Bld) [#/Vol] 0 10*3/uL Normal 0-5 [facility] Comment on above: Performed By: #### L 501.2450, L500.4050, L100.0100 ####[facility] [address] [place], [address] Platelet mean volume (Bld) [Entitic vol] 10.7 fL Normal 6.2-12.0 [facility] Comment on above: Performed By: #### L 501.2450, L500.4050, L100.0100 ####[facility] [address] [place], [address] Platelets (Bld) [#/Vol] 210 10*3/uL Normal 150-450 [facility] Comment on above: Performed By: #### L 501.2450, L500.4050, L100.0100 ####[facility] [address] [place], [address] RBC (Bld) [#/Vol] 4.46 10*6/uL Low 4.6-6.2 [facility] Comment on above: Performed By: #### L 501.2450, L500.4050, L100.0100 ####[facility] [address] [place], [address] RDW SD 52.4 fl High 35.1-43.9 [facility] Comment on above: Performed By: #### L 501.2450, L500.4050, L100.0100 ####[facility] [address] [place], [address] WBC (Bld) [#/Vol] 6.3 10*3/uL Normal 4.4-11.0 [facility] Comment on above: Performed By: #### L 501.2450, L500.4050, L100.0100 ####[facility] [address] [place], [address] Carbon dioxide, total [Moles /volume] in Central venous bloodOrdered By: Rena Franklin on 12-12-2024 CO2 [Moles/Vol] 19.6 mmol/L Low 21.0-32.0 [facility] Chloride assayOrdered By: Debbie Franklin on 12-12-2024 Chloride [Moles/Vol] 104 mmol/L 98-108 [facility] Comprehensive Metabolic Prof ilon 12-12-2024 Albumin [Mass/Vol] 4.2 g/dL Normal 3.4-4.8 [facility] Comment on above: Performed By: #### L 501.2450, L500.4050, L100.0100 ####[facility] [address] [place], [address] Albumin/Globulin [Mass ratio] 1.5 {ratio} Normal 0.9-2.4 [facility] Comment on above: Performed By: #### L 501.2450, L500.4050, L100.0100 ####[facility] [address] [place], [address] ALK PHOS 108 U/L Normal 40-129 [facility] Comment on above: Performed By: #### L 501.2450, L500.4050, L100.0100 ####[facility] [address] [place], [address] ALT [Catalytic activity/Vol] 15 U/L Normal <=46 [facility] Comment on above: Performed By: #### L 501.2450, L500.4050, L100.0100 ####[facility] [address] [place], [address] AST [Catalytic activity/Vol] 25 U/L Normal <=37 [facility] Comment on above: Performed By: #### L 501.2450, L500.4050, L100.0100 ####[facility] [address] [place], [address] Bilirubin [Mass/Vol] 0.83 mg/dL Normal 0.00-1.30 [facility] Comment on above: Performed By: #### L 501.2450, L500.4050, L100.0100 ####[facility] [address] [place], [address] BUN/CRE 14.4 RATIO Normal 10-20 [facility] Comment on above: Performed By: #### L 501.2450, L500.4050, L100.0100 ####[facility] [address] [place], [address] Calcium [Mass/Vol] 9.4 mg/dL Normal 7.6-11.0 [facility] Comment on above: Performed By: #### L 501.2450, L500.4050, L100.0100 ####[facility] [address] [place], [address] Chloride [Moles/Vol] 104 mmol/L Normal 98-108 [facility] Comment on above: Performed By: #### L 501.2450, L500.4050, L100.0100 ####[facility] [address] [place], [address] CO2 [Moles/Vol] 19.6 mmol/L Low 21.0-32.0 [facility] Comment on above: Performed By: #### L 501.2450, L500.4050, L100.0100 ####[facility] [address] [place], [address] Creatinine [Mass/Vol] 2.39 mg/dL High 0.70-1.20 [facility] Comment on above: Performed By: #### L 501.2450, L500.4050, L100.0100 ####[facility] [address] [place], [address] GAP 17 High 5-15 [facility] Comment on above: Performed By: #### L 501.2450, L500.4050, L100.0100 ####[facility] [address] [place], [address] GFR/1.73 sq M.predicted among non-blacks MDRD (S/P/Bld) [Vol rate/Area] 26 mL/min/{1.73_m2} Low >60 [facility] Comment on above: Result Comment: mL/m in/1.73m2 CKD-EPI Creatinine Equation (2020) Performed By: #### L 501.2450, L500.4050, L100.0100 ####[facility] [address] [place], [address] Globulin (S) [Mass/Vol] 2.9 g/dL Normal 2.2-4.2 [facility] Comment on above: Performed By: #### L 501.2450, L500.4050, L100.0100 ####[facility] [address] [place], [address] Glucose [Mass/Vol] 144 mg/dL High 70-99 [facility] Comment on above: Performed By: #### L 501.2450, L500.4050, L100.0100 ####[facility] [address] [place], [address] Potassium [Moles/Vol] 3.9 mmol/L Normal 3.3-5.1 [facility] Comment on above: Performed By: #### L 501.2450, L500.4050, L100.0100 ####[facility] [address] [place], [address] Sodium [Moles/Vol] 140 mmol/L Normal 133-145 [facility] Comment on above: Performed By: #### L 501.2450, L500.4050, L100.0100 ####[facility] [address] [place], [address] T PROT 7.1 g/dL Normal 5.9-8.4 [facility] Comment on above: Performed By: #### L 501.2450, L500.4050, L100.0100 ####[facility] [address] [place], [address] Urea nitrogen [Mass/Vol] 34 mg/dL High 4-19 [facility] Comment on above: Performed By: #### L 501.2450, L500.4050, L100.0100 ####[facility] [address] [place], [address] Emergency Department Summary on 12-12-2024 Emergency Department Summary [facility] Medical Records Department [address] [place] [address] Emergency Department Summary 12/12/24 MR#: [id number] Acct: [id number] Name: MEGAN NASCIMENTO Rep #: [id number] : 1940 84 From: Rena FORMAN PCP: Dr. Rigoberto Durand MD Status:DEP ER Location: ED HPI HPI - GI History of Present Illness Chief Complaint: Abd Pain Narrative Narrative: Patient presenting today with epigastric abdominal pain he has had intermittently over the past 2 to 3 weeks. He reports that his pain is worse at night and is somewhat improved when he lays on his left side. He reports that the pain occasionally radiates across his lower abdomen. He has a history of GERD and an upper GI bleed. He denies stool changes, fevers, chills, vomiting, and urinary symptoms. He has no previous history of abdominal surgery. He has a PMH of CHF, HTN, CKD, T2DM, and GERD. [facility] Medical History Chronic pain of toe of left foot Displaced fracture of proximal phalanx of left lesser toe(s), initial encounter for closed fracture Diabetes MIAU (minor aphthous ulceration) Hiatal hernia CKD (chronic kidney disease), stage IV Pulmonary embolism HFrEF (heart failure with reduced ejection fraction) Blood transfusion during current hospitalisation Anticoagulant-induce d bleeding GI bleed Benign positional vertigo Home Medications ???Medication ???Instructions ???Recorded ???Last Taken ???Type levothyroxine 75 mcg tablet 75 mcg PO DAILY thyroid 06/28/21 U nknown History mecobalamin (vitamin B12) 1,000 1,000 mcg PO DAILY anemia 06/28/21 Unknown History mcg chewable tablet (B12 Active) metoprolol succinate 100 mg 100 mg PO DAILY heart 06/28/21 Unk nown History tablet,extended release 24 hr jgokocuivypr-vlt-lty ic acid-vit 1 tab PO DAILY not on pcp med list 06/28/21 Unknown History K-lycop 400 mcg-20 mcg-370 mcg tablet (Men's 50 Plus Multivitamin) tamsulosin 0.4 mg capsule 0.4 mg PO DAILY per md office list 06/28/21 Unknown History ferrous sulfate 325 mg (65 mg 325 mg PO DAILY #30 tabs 07/01/21 Unknown Rx iron) tablet pantoprazole 40 mg tablet,delayed 40 mg PO BID #120 tabs 09/21/21 U nknown Rx release sucralfate 100 mg/mL oral 10 ml PO BID md office #1,000 mL 0 09/21/21 Unknown Rx suspension colestipol 1 gram tablet 0.5 g (1/2 x 1 gram) PO .every 09/11 Unknown Rx other day 30 days #30 tabs gabapentin 400 mg capsule 400 mg PO TID per md office list 0 11/27/23 Unknown History glimepiride 1 mg tablet 1 mg PO DAILY per pcp med list 04/13 Unknown History rosuvastatin 20 mg tablet 20 mg PO DAILY per pcp 11/27/23 Un known History sacubitril 24 mg-valsartan 26 mg 1 tab PO BID per pcp med list 04/13 Unknown History tablet (Entresto) Held on 12/02/23. Instructions: Hold for at least 1 week. GABI on CKD. sertraline 50 mg tablet 50 mg PO DAILY per md office 11/26 Unknown History sildenafil 100 mg tablet PO per pcp med list 11/27/23 Unkno wn History sucralfate 1 gram tablet (Carafate) 1 g PO BID per MD office list 0 11/27/23 Unknown History acetaminophen 325 mg tablet 650 mg (2 x 325 mg) PO Q6H PRN PRN 12/02/23 Unknown Rx Pain 1-10 Or Fever >100.7 #0 tabs amoxicillin 500 mg-potassium 1 tab PO BIDCM 5 days #10 tabs Unknown Rx clavulanate 125 mg tablet doxycycline monohydrate 100 mg 100 mg PO BID 5 days #10 caps 11/18 11/11 Unknown Rx capsule insulin lispro 100 unit/mL See Protocol subcut TIDAC #0 mL Unknown Rx subcutaneous pen (Humalog KwikPen (U-100) Insulin) miconazole nitrate 2 % topical 1 applic topical BID #0 grams 11/18 11/11 Unknown Rx cream oxycodone 5 mg tablet 2.5 - 5 mg (0.5 - 1 x 5 mg) PO Q4H 12/02/23 Unknown Rx PRN PRN Pain Score 4-10 3 days #7 tabs spironolactone 25 mg tablet 25 mg PO DAILY not on pcp list 30 12/02/23 Unknown Rx days #0 tabs torsemide 20 mg tablet 20 mg PO BID per md of 30 days #0 12/02/23 Unknown Rx tabs amoxicillin 875 mg-potassium 1 tab PO BID 10 days #19 tabs 11/19 12/12 Unknown Rx clavulanate 125 mg tablet hydrocodone-acetamin ophen 5-325mg 1 tab PO Q6H PRN PRN Pain 2 days 12/12/24 Unknown Rx 5mg-325mg #8 TABLETS Allergy/AdvReac Type Severity Reaction Status Date / Time No Known Allergies Allergy Verified 12/12/24 10:32 Family History Other Cancer Hypertension Surgical History History of permanent cardiac pacemaker placement Social History household members: spouse Smoking Status: Never smoker alcohol intake: never substance use (more content not included)... Normal [facility] Eosinophil percentageOrdered By: Rena Franklin on 12-12-2024 Eosinophils/100 WBC (Bld) 2.4 % 0-5 [facility] Erythrocyte distribution wid th ratioOrdered By: Rena Franklin on 12-12-2024 Erythrocyte distribution width (RBC) [Ratio] 16.2 % High 11.6-14.6 [facility] Erythrocyte distribution wid th standard deviationOrdered By: Rena Franklin on 12-12-2024 Erythrocyte distribution width (RBC) [Ratio] 52.4 fl High 35.1-43.9 [facility] Glomerular filtration rate ( GFR) estimation/1.73 sq m using serum, plasma, or whole bOrdered By: Rena Franklin on 12-12-2024 GFR/1.73 sq M.predicted among non-blacks MDRD (S/P/Bld) [Vol rate/Area] 26 mL/min/{1.73_m2} Low >60 [facility] Comment on above: mL/min/1.73m2 CKD-EP I Creatinine Equation (2020) Hematocrit Auto (Bld) [Volum e fraction]Ordered By: Rena Franklin on 12-12-2024 Hematocrit (Bld) [Volume fraction] 39.7 % Low 40-54 [facility] Hemoglobin measurementOrdere d By: Rena Franklin on 12-12-2024 Hemoglobin (Bld) [Mass/Vol] 12.9 g/dL Low 13.0-16.5 [facility] Immature granulocytes/100 WB C Auto (Bld)Ordered By: Rena Franklin on 12-12-2024 Immature granulocytes/100 WBC (Bld) 0.500 % 0.0-0.9 [facility] Comment on above: IG% - Immature Granu locytes (promyelocytes, myelocytes and metamyelocytes) > 1% indicates that a LEFT SHIFT is Present. Ketones Test strip Ql (U)Ord ered By: Rena Franklin on 12-12-2024 Ketones Ql (U) Negative Negative [facility] Laboratory - Chemistry and C hemistry - challengeOrdered By: Rena Franklin on 12-12-2024 AST [Catalytic activity/Vol] 25 U/L <38 [facility] Lipaseon 12-12-2024 Lipase [Catalytic activity/Vol] 36 U/L Normal 13-75 [facility] Comment on above: Result Comment: Plea se note: LIPASE revised reference range effective 22. New Lipase methodology. Expected to produce lower values than the previous assay method. NEW Reference Range: 13 - 75 U/L Performed By: #### L 501.2450, L500.4050, L100.0100 ####[facility] [address] [place], [address] Lipase measurementOrdered By : Rena Franklin on 12-12-2024 Lipase [Catalytic activity/Vol] 36 U/L 13-75 [facility] Comment on above: Please note:LIPASE r evised reference range effective 22. New Lipase methodology. Expected to produce lower values than the previous assay method. NEW Reference Range: 13 - 75 U/L MCV (mean corpuscular volume ) determinationOrdered By: Rena Franklin on 12-12-2024 MCV (RBC) [Entitic vol] 89.0 fL 80-94 [facility] Mean corpuscular hemoglobin (MCH) determinationOrdered By: Rena Franklin on 12-12-2024 MCH (RBC) [Entitic mass] 28.9 pg 27.0-32.0 [facility] Mean corpuscular hemoglobin concentration (MCHC) determinationOrdered By: Rena Franklin on 12-12-2024 MCHC (RBC) [Mass/Vol] 32.5 g/dL 32-36 [facility] Mean platelet volume determi nationOrdered By: Rena Franklin on 12-12-2024 Platelet mean volume (Bld) [Entitic vol] 10.7 fL 6.2-12.0 [facility] Microscopic analysis of urin e for red blood cells (RBC)Ordered By: Rena Franklin on 12-12-2024 Microscopic analysis of urine for red blood cells (RBC) 0 SEEN /hpf 0-5 [facility] Monocyte percentageOrdered B y: Rena Franklin on 12-12-2024 Monocytes/100 WBC (Bld) 6.3 % 0-10 [facility] Mucus LM Ql (Urine sed)Order ed By: Rena Franklin on 12-12-2024 Mucus Ql (Urine sed) 0 SEEN /hpf [facility] Neutrophil percentageOrdered By: Rena Franklin on 12-12-2024 Neutrophils/100 WBC (Bld) 72.8 % High 47-70 [facility] Nitrite Test strip Ql (U)Ord ered By: Rena [place] on 12-12-2024 Nitrite Ql (U) Negative Negative [facility] Nucleated red blood cell per centageOrdered By: Rena Franklin on 12-12-2024 Nucleated RBC/100 WBC (Bld) [Ratio] 0 % 0-5 [facility] Platelet countOrdered By: Debbie Franklin on 12-12-2024 Platelets (Bld) [#/Vol] 210 10*3/uL 150-450 [facility] Potassium measurement (mass/ volume)Ordered By: Rena Franklin on 12-12-2024 Potassium (Unsp spec) [Mass/Vol] 3.9 mmol/L 3.3-5.1 [facility] Protein Test strip Ql (U)Ord ered By: Rena Franklin on 12-12-2024 Protein Ql (U) 30 mg/dl High Negative [facility] RBC Auto (Bld) [#/Vol]Ordere d By: Rena Franklin on 12-12-2024 RBC (Bld) [#/Vol] 4.46 10*6/uL Low 4.6-6.2 [facility] Serum creatinine measurement (mass/volume)Ordered By: Rena Franklin on 12-12-2024 Creatinine [Mass/Vol] 2.39 mg/dL High 0.70-1.20 [facility] Serum globulin measurementOr dered By: Rena Franklin on 12-12-2024 Globulin (S) [Mass/Vol] 2.9 g/dL 2.2-4.2 [facility] Serum glucose measurement (m ass/volume)Ordered By: Rena Franklin on 12-12-2024 Glucose [Mass/Vol] 144 mg/dL High 70-99 [facility] Serum or plasma alanine clay otransferase (ALT) measurementOrdered By: Rena Franklin on 12-12-2024 ALT [Catalytic activity/Vol] 15 U/L <47 [facility] Serum or plasma albumin geena urement (mass/volume)Ordered By: Rena Franklin on 12-12-2024 Albumin [Mass/Vol] 4.2 g/dL 3.4-4.8 [facility] Serum or plasma albumin/glob ulin mass ratioOrdered By: Rena Franklin on 12-12-2024 Albumin/Globulin [Mass ratio] 1.5 {ratio} 0.9-2.4 [facility] Serum or plasma alkaline camila sphatase measurementOrdered By: Rena Franklin on 12-12-2024 ALP [Catalytic activity/Vol] 108 U/L 40-129 [facility] Serum or plasma calcium geena urement (mass/volume)Ordered By: Rena Franklin on 12-12-2024 Calcium [Mass/Vol] 9.4 mg/dL 7.6-11.0 [facility] Serum or plasma urea nitroge n measurement (mass/volume)Ordered By: Rena Franklin on 12-12-2024 Urea nitrogen [Mass/Vol] 34 mg/dL High 4-19 [facility] Sodium levelOrdered By: Kash Franklin on 12-12-2024 Sodium [Moles/Vol] 140 mmol/L 133-145 [facility] Squamous epithelial cells de tection in urine sediment by light microscopyOrdered By: Rena Franklin on 12-12-2024 Epithelial cells.squamous LM Ql (Urine sed) 0 SEEN /hpf 0-5 [facility] Total proteinOrdered By: Erick Franklin on 12-12-2024 Protein [Mass/Vol] 7.1 g/dL 5.9-8.4 [facility] Urinalysis, Completeon 12-12 BACTERIA 0 SEEN Normal None Seen [facility] Comment on above: Order Comment: CLEAN CATCH Performed By: #### L 400.0001 ####[facility] [address] [place], [address] EPI,SQUAMOUS 0 SEEN Normal 0-5 [facility] Comment on above: Order Comment: CLEAN CATCH Performed By: #### L 400.0001 ####[facility] [address] [place], [address] Mucus Ql (Urine sed) 0 SEEN Normal [facility] Comment on above: Order Comment: CLEAN CATCH Performed By: #### L 400.0001 ####[facility] [address] [place], [address] RBC 0 SEEN Normal 0-5 [facility] Comment on above: Order Comment: CLEAN CATCH Performed By: #### L 400.0001 ####[facility] [address] [place], [address] WBC 0 SEEN Normal 0-5 [facility] Comment on above: Order Comment: CLEAN CATCH Performed By: #### L 400.0001 ####[facility] [address] [place], [address] Urine clarityOrdered By: Erick [place] on 12-12-2024 Clarity (U) Clear Clear [facility] Urine color determinationOrd ered By: Rena Franklin on 12-12-2024 Color (U) Yellow Yellow [facility] Urine glucose detectionOrder ed By: Rena Franklin on 12-12-2024 Glucose Ql (U) Normal mg/dl Normal [facility] Urine leukocyte esterase det ection by dipstickOrdered By: Rena Franklin on 12-12-2024 Leukocyte esterase Test strip Ql (U) Negative Negative [facility] Urine pHOrdered By: Ranjit Franklin on 12-12-2024 pH (U) 6.0 [pH] 5.0 - 8.0 [facility] Urine sediment bacteria coun t by microscopy (number/high power field)Ordered By: Rena Franklin on 12-12-2024 Bacteria LM.HPF (Urine sed) [#/Area] 0 /[HPF] None Seen [facility] Urine specific gravity measu rementOrdered By: Rena Franklin on 12-12-2024 Specific gravity (U) [Rel density] 1.010 1.002-1.030 [facility] Urine urobilinogen measureme ntOrdered By: Rena Franklin on 12-12-2024 Urobilinogen Ql (U) Normal mg/dl Normal [facility] White blood cell (WBC) count Ordered By: Rena Franklin on 12-12-2024 WBC (Bld) [#/Vol] 6.3 10*3/uL 4.4-11.0 [facility] White blood cell countOrdere d By: Rena Franklin on 12-12-2024 White blood cell count 0 SEEN /hpf 0-5 [facility] Albumin DL <= 20 mg/L (U) [M ass/Vol]Ordered By: Rigoberto Durand on 09-27-2024 Urine Random Microalbumin < 12.0 mg/L NO RANGE EST. [facility] Anion gap in Serum or Plasma Ordered By: Rigoberto Durand on 09-27-2024 Anion gap [Moles/Vol] 17 mmol/L High - [facility] BUN/creatinine ratioOrdered By: Rigoberto Durand on 09-27-2024 Urea nitrogen/Creatinine [Mass ratio] 14.3 mg/mg 05-09 [facility] Basic Metabolic Profile (BMP )on 09-27-2024 BUN/CRE 14.3 RATIO Normal 05-09 [facility] Comment on above: Performed By: #### L 501.9985, L501.9910, L500.2500, L502.0250, L500.4100 ####[facility] [address] [place], [address] Calcium [Mass/Vol] 8.9 mg/dL Normal 7.6-11.0 [facility] Comment on above: Performed By: #### L 501.9985, L501.9910, L500.2500, L502.0250, L500.4100 ####[facility] [address] [place], [address] Chloride [Moles/Vol] 103 mmol/L Normal 98-108 [facility] Comment on above: Performed By: #### L 501.9985, L501.9910, L500.2500, L502.0250, L500.4100 ####[facility] [address] [place], [address] CO2 [Moles/Vol] 19.8 mmol/L Low 21.0-32.0 [facility] Comment on above: Performed By: #### L 501.9985, L501.9910, L500.2500, L502.0250, L500.4100 ####[facility] [address] [place], [address] Creatinine [Mass/Vol] 2.36 mg/dL High 0.70-1.20 [facility] Comment on above: Performed By: #### L 501.9985, L501.9910, L500.2500, L502.0250, L500.4100 ####[facility] [address] [place], [address] GAP 17 High 5-15 [facility] Comment on above: Performed By: #### L 501.9985, L501.9910, L500.2500, L502.0250, L500.4100 ####[facility] [address] [place], [address] GFR/1.73 sq M.predicted among non-blacks MDRD (S/P/Bld) [Vol rate/Area] 26 mL/min/{1.73_m2} Low >60 [facility] Comment on above: Result Comment: mL/m in/1.73m2 CKD-EPI Creatinine Equation (2020) Performed By: #### L 501.9985, L501.9910, L500.2500, L502.0250, L500.4100 ####[facility] [address] [place], [address] Glucose [Mass/Vol] 142 mg/dL High 70-99 [facility] Comment on above: Performed By: #### L 501.9985, L501.9910, L500.2500, L502.0250, L500.4100 ####[facility] [address] [place], [address] Potassium [Moles/Vol] 4.0 mmol/L Normal 3.3-5.1 [facility] Comment on above: Performed By: #### L 501.9985, L501.9910, L500.2500, L502.0250, L500.4100 ####[facility] [address] [place], [address] Sodium [Moles/Vol] 140 mmol/L Normal 133-145 [facility] Comment on above: Performed By: #### L 501.9985, L501.9910, L500.2500, L502.0250, L500.4100 ####[facility] [address] [place], [address] Urea nitrogen [Mass/Vol] 34 mg/dL High 4-19 [facility] Comment on above: Performed By: #### L 501.9985, L501.9910, L500.2500, L502.0250, L500.4100 ####[facility] [address] [place], [address] Calculated very low density lipoprotein (VLDL) cholesterol measurementOrdered By: Rigoberto Durand on 09-27-2024 Calculated very low density lipoprotein (VLDL) cholesterol measurement 36 mg/dL 5-40 [facility] VLDL Cholesterol 36 mg/dL 5-40 [facility] Carbon dioxide, total [Moles /volume] in Central venous bloodOrdered By: Rigoberto Durand on 09-27-2024 CO2 [Moles/Vol] 19.8 mmol/L Low 21.0-32.0 [facility] Chloride assayOrdered By: Dasia Durand on 09-27-2024 Chloride [Moles/Vol] 103 mmol/L 98-108 [facility] Creatinine Unsp time (U) [Ma ss/Vol]Ordered By: Rigoberto Durand on 09-27-2024 Creatinine (U) [Mass/Vol] 42.10 mg/dL 39-259 [facility] GFR/1.73 sq M.predicted [place] g non-blacks MDRD (S/P/Bld) [Vol rate/Area]Ordered By: Rigoberto Durand on 09-27-2024 Estimated GFR (MDRD) Non-Af Amer 26 Low >60 [facility] Comment on above: mL/min/1.73m2 CKD-EP I Creatinine Equation (2020) Glomerular filtration rate ( GFR) estimation/1.73 sq m using serum, plasma, or whole bOrdered By: Rigoberto Durand on 09-27-2024 GFR/1.73 sq M.predicted among non-blacks MDRD (S/P/Bld) [Vol rate/Area] 26 mL/min/{1.73_m2} Low >60 [facility] Comment on above: mL/min/1.73m2 CKD-EP I Creatinine Equation (2020) Hemoglobin A1con 09-27-2024 HbA1c (Bld) [Mass fraction] 6.5 % Normal <=5.6 [facility] Comment on above: Performed By: #### L 501.9985, L501.9910, L500.2500, L502.0250, L500.4100 ####[facility] [address] [place], [address] Hemoglobin A1c percentageOrd ered By: Rigoberto Durand on 09-27-2024 HbA1c (Bld) [Mass fraction] 6.5 % >5.7 [facility] LDL calc ser/plasOrdered By: Rigoberto Duradn on 09-27-2024 Cholesterol in LDL [Mass/Vol] 82 mg/dL [facility] Comment on above: Whjhvnjymn=663-380 m g/dL & Higher Lxgl=808 mg/dL or greater LDL Cholesterol, Calculated 82 mg/dL [facility] Comment on above: Pitpzbnyzd=571-345 m g/dL & Higher Gkgm=085 mg/dL or greater Lipid Profileon 09-27-2024 CHOL:HDL 4.51 Normal [facility] Comment on above: Performed By: #### L 501.9985, L501.9910, L500.2500, L502.0250, L500.4100 ####[facility] [address] [place], [address] Cholesterol [Mass/Vol] 152 mg/dL Normal <=200 [facility] Comment on above: Result Comment: Chol esterol level, Desirable <200 mg/dL Borderline high cholesterol 200-239 mg/dL High cholesterol >=240 mg/dL Recommendations of the NCEP Adult Treatment Panel for the following risk-cutoff thresholds for the [place] population. Performed By: #### L 501.9985, L501.9910, L500.2500, L502.0250, L500.4100 ####[facility] [address] [place], [address] Cholesterol in HDL [Mass/Vol] 34 mg/dL Low [facility] Comment on above: Result Comment: [place]y onal Cholesterol Education Program (NCEP) guidelines: <40 mg/dL: Low HDL-cholesterol (major risk factor for CHD) >= 60 mg/dL: High HDL-cholesterol (negative risk factor for CHD) HDL-cholesterol is affected by a number of factors, e.g. smoking, exercise, hormones, sex and age. Performed By: #### L 501.9985, L501.9910, L500.2500, L502.0250, L500.4100 ####[facility] [address] [place], [address] Cholesterol in LDL [Mass/Vol] 82 mg/dL Normal [facility] Comment on above: Result Comment: Bord znriez=777-268 mg/dL Higher Xxey=148 mg/dL or greater Performed By: #### L 501.9985, L501.9910, L500.2500, L502.0250, L500.4100 ####[facility] [address] [place], [place], [id number]) Cholesterol in VLDL [Mass/Vol] 36 mg/dL Normal 5-40 [facility] Comment on above: Performed By: #### L 501.9985, L501.9910, L500.2500, L502.0250, L500.4100 ####[facility] [address] [place], [address] Triglyceride [Mass/Vol] 182 mg/dL Normal [facility] Comment on above: Result Comment: The drugs N-Acetylcysteine and Metamizole may falsely depress this assay. Normal range: <150 mg/dL Borderline High: 150-199 mg/dL High: 200-499 mg/dL Very High: >500 mg/dL Performed By: #### L 501.9985, L501.9910, L500.2500, L502.0250, L500.4100 ####[facility] [facility] [address] [place], [place], [phone]) Microalb:Creat Ratio,Random URon 09-27-2024 Creatinine [Mass/Vol] 42.10 mg/dL Normal 39-259 [facility] Comment on above: Performed By: #### L 501.9985, L501.9910, L500.2500, L502.0250, L500.4100 ####[facility] [address] [place], [address] MALB:CREAT UNABLE TO CALCULATE Normal [facility] Comment on above: Performed By: #### L [id number], L501.9910, L500.2500, L502.0250, L500.4100 ####[facility] [address] [place], [address] MICROALBUMIN,UR < 12.0 Normal NO RANGE EST. [facility] Comment on above: Performed By: #### L [id number], L501.9910, L500.2500, L502.0250, L500.4100 ####[facility] [address] [place], [address] Microalbumin/creat ratio urO rdered By: Rigoberto Durand on 09-27-2024 Urine Microalbumin/Creatinine Ratio UNABLE TO CALCULATE mg/g CRE [facility] Urine microalbumin/creatinine ratio measurement UNABLE TO CALCULATE mg/g CRE [facility] PSA, total screeningOrdered By: Rigoberto Durand on 09-27-2024 Prostate Specific Antigen Screen 0.68 ng/mL 0.02-4.00 [facility] Comment on above: This test was perfor med using the [employer] tPSA method. Measured values of a patient sample can vary depending on the testing procedure used. PSA values determined on patient samples by different testing procedures cannot be used interchangeably. If there is a change in PSA assays while monitoring therapy, sequential testing should be performed to confirm baseline values. PSA,Total - Annual Screenon 09-27-2024 PSA,TOT SCREEN 0.68 ng/mL Normal 0.02-4.00 [facility] Comment on above: Result Comment: This test was performed using the [employer] tPSA method. Measured values of a patient??sample can vary depending on the testing procedure used. PSA values determined on patient samples by different testing procedures cannot be used interchangeably. If there is a change in PSA assays while monitoring therapy, sequential testing should be performed to confirm baseline values. Performed By: #### L 501.9985, L501.9910, L500.2500, L502.0250, L500.4100 ####[facility] [address] [place], [address] Potassium (Unsp spec) [Mass/ Vol]Ordered By: Rigoberto Durand on 09-27-2024 Potassium [Moles/Vol] 4.0 mmol/L 3.3-5.1 [facility] Potassium measurement (mass/ volume)Ordered By: Rigoberto Durand on 09-27-2024 Potassium (Unsp spec) [Mass/Vol] 4.0 mmol/L 3.3-5.1 [facility] Random urine creatinine geena urement (mass/volume)Ordered By: Rigoberto Durand on 09-27-2024 Creatinine Unsp time (U) [Mass/Vol] 42.10 mg/dL 39-259 [facility] Screening total cholesterol/ high density lipoprotein (HDL) cholesterol ratioOrdered By: Rigoberto Durand on 09-27-2024 Cholesterol.total/Choles terol in HDL [Mass ratio] 4.51 {ratio} [facility] Serum creatinine measurement (mass/volume)Ordered By: Rigoberto Durand on 09-27-2024 Creatinine [Mass/Vol] 2.36 mg/dL High 0.70-1.20 [facility] Serum glucose measurement (m ass/volume)Ordered By: Rigoberto Durand on 09-27-2024 Glucose [Mass/Vol] 142 mg/dL High 70-99 [facility] Serum or plasma calcium geena urement (mass/volume)Ordered By: Rigoberto Durand on 09-27-2024 Calcium [Mass/Vol] 8.9 mg/dL 7.6-11.0 [facility] Serum or plasma cholesterol in HDL measurement (mass/volume)Ordered By: Rigoberto Durand on 09-27-2024 Cholesterol in HDL [Mass/Vol] 34 mg/dL Low >40 [facility] Comment on above: National Cholesterol Education Program (NCEP) guidelines:<40 mg/dL: Low HDL-cholesterol (major risk factor for CHD)>= 60 mg/dL: High HDL-cholesterol (negative risk factor for CHD)HDL-cholesterol is affected by a number of factors, e.g. smoking, exercise, hormones, sex and age. Serum or plasma cholesterol measurement (mass/volume)Ordered By: Rigoberto Durand on 09-27-2024 Cholesterol [Mass/Vol] 152 mg/dL <201 [facility] Comment on above: Cholesterol level, D esirable <200 mg/dLBorderline high cholesterol 200-239 mg/dLHigh cholesterol >=240 mg/dLRecommendations of the NCEP Adult Treatment Panel for the following risk-cutoff thresholds for the [place] population. Serum or plasma urea nitroge n measurement (mass/volume)Ordered By: Rigoberto Durand on 09-27-2024 Urea nitrogen [Mass/Vol] 34 mg/dL High 4-19 [facility] Sodium levelOrdered By: Rigoberto Durand on 09-27-2024 Sodium [Moles/Vol] 140 mmol/L 133-145 [facility] Triglycerides measurementOrd ered By: Rigoberto Durand on 09-27-2024 Triglyceride [Mass/Vol] 182 mg/dL <199 [facility] Comment on above: The drugs N-Acetylcy steine and Metamizole may falsely depress this assay. Normal range: <150 mg/dLBorderline High: 150-199 mg/dLHigh: 200-499 mg/dLVery High: >500 mg/dL Urine albumin measurement wi th detection limit of 20 mg/L or less (mass/volume)Ordered By: Rigoberto Durand on 09-27-2024 Albumin DL <= 20 mg/L (U) [Mass/Vol] < 12.0 mg/L NO RANGE EST. [facility] Progress Noteon 09-22-2024 Progress Note [facility] Telehealth Cardiology Note DATE of SERVICE: 09/22/24 TIME of SERVICE: 3:13 PM Chief Complaint: Chief Complaint Patient presents with 1 Year Follow-up History of Present Illness: Megan Nascimento is a 84 y.o. male called for routine follow-up. Did not come in because of subacute shingles or herpes zoster involving his left cheek, left ear, left forehead. His history includes Nonischemic cardiomyopathy, heart failure with reduced ejection fraction, status post cardiac resynchronization therapy and ICD. His left ventricular ejection fraction is about 35 to 40% Chronic kidney disease, glomerular filtration rate in the 20s as of December 2023. His local physician has done follow-up blood test and he tells me that its about the same. Pulmonary embolism, remote Gastrointestinal bleeding, resolved Cholecystitis, status post tube drainage. Interestingly, he says that he is most limited by arthralgias in his knees. He did put himself on coenzyme every 10 and is noted some improvement in some muscle aches. That is not a problem. He is having no shortness of breath or chest pain or palpitations or edema. He has been getting care through a local physician for his zoster and will be seeing him in follow-up on Friday of this week. I met him in February 2020 when he was in severe decompensated heart failure with a very low left ventricular ejection fraction. His initial left ventricular ejection fraction was about 10 to 20%. I was able to find his cardiac catheterization which was done April 21, 2019 which showed minimal luminal narrowing in the left main, minimal luminal narrowing in the LAD, 90% third diagonal lesion, minimal disease in the circumflex and a mid right coronary lesion that is 80% stenosed. At that time his ejection fraction was 35 to 40%. Participants on telehealth call: Megan Nascimento Past Medical History: Past Medical History: Diagnosis Date Acute HFrEF (heart failure with reduced ejection fraction) ([facility]) 09/22/2020 Bladder cancer ([facility]) CHF (congestive heart failure) ([facility]) Chronic HFrEF (heart failure with reduced ejection fraction) ([facility]) 09/21/2020 Chronic kidney disease DM (diabetes mellitus) ([facility]) DM (diabetes mellitus) ([facility]) DVT (deep venous thrombosis) ([facility]) ED (erectile dysfunction) Follicular non-Hodgkin's lymphoma ([facility]) GERD (gastroesophageal reflux disease) GERD (gastroesophageal reflux disease) HTN (hypertension) HTN (hypertension) Hyperlipidemia Left bundle branch block 09/11/2020 Non-ischemic cardiomyopathy (CMS/HCC) ([facility]) Presence of cardiac resynchronization therapy defibrillator (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) 01/17/2022 PUD (peptic ulcer disease) Pulmonary embolism ([facility]) Pulmonary fibrosis ([facility]) Rosacea Stage 3b chronic kidney disease ([facility]) 09/21/2020 Tachycardia Past Surgical History Past Surgical History: Procedure Laterality Date BONE MARROW BIOPSY CARDIAC PACEMAKER PLACEMENT COLONOSCOPY COLONOSCOPY COSMETIC SURGERY face lift, rhinoplasty EYE SURGERY cataract removal FACIAL COSMETIC SURGERY LYMPH NODE BIOPSY SEPTOPLASTY SKIN BIOPSY VENTRICULAR CARDIAC PACEMAKER INSERTION 09/11/2020 Bi-V ICD Family History Family History Problem Relation Name Age of Onset High Blood Pressure Father High Blood Pressure Mother Social History Social History Tobacco Use Smoking status: Former Current packs/day: 0.00 Types: Cigarettes Quit date: 11/08/1999 Years since quittin.8 Smokeless tobacco: Never Substance Use Topics Alcohol use: Yes Comment: occasionally Drug use: No Comment: caffeine:1-2 cups of coffee a day Allergies: Allergies Allergen Reactions Atorvastatin Other reaction(s): Myalgia Latanoprost Other reaction(s): Blurring of visual image, Excessive tear production, Red eye Lovastatin Other reaction(s): Myalgia Other Medications: Current Outpatient Medications: cholecalciferol (Vitamin D-3) 25 MCG (1000 UT) capsule, Take by mouth., Disp: , Rfl: cyanocobalamin (Vitamin B-12) 1000 MCG tablet, Take 1 tablet by mouth in the morning., Disp: , Rfl: ferrous sulfate 325 (65 Fe) MG tablet, Take 325 mg by mouth., Disp: , Rfl: gabapentin (Neurontin) 100 MG capsule, Take 100 mg by mouth., Disp: , Rfl: glimepiride (Amaryl) 1 MG tablet, Take 1 mg by mouth daily (with breakfast)., Disp: , Rfl: levothyroxine (Synthroid, Levoxyl) 25 MCG tablet, Take 25 mcg by mouth in the morning., Disp: , Rfl: metoprolol succinate XL (Toprol-XL) 100 MG 24 hr tablet, Take 100 mg by mouth in the morning., Disp: , Rfl: Multiple Vitamin (multivitamin) tablet, Take 1 tablet by mouth daily., Disp: , Rfl: pantoprazole (ProtoNix) 40 MG EC tablet, daily, Disp: , Rfl: rosuvastatin (Crestor) 20 MG tablet, Take 20 mg by mouth daily., Disp: , Rfl: sacubitril-valsartan (Entresto) 24-26 MG tablet, Take 1 tablet by mouth in the morning and 1 tablet before bedtime., Disp: 180 tablet, Rfl: 1 (more content not included)... [facility] 36on 07-28-2024 36 ----- Message from Gibson Lamb sent at 07/28/2024 8:57 AM EST ----- Regarding: RE: Clinic check Called and spoke with the patient regarding both appointments (dates/time) for 09-22-2024 at the [facility]. ----- Message ----- From: Di Hernández RN Sent: 07/28/2024 8:40 AM EST To: Gibson Moore CMA Subject: RE: Clinic check Thanks Gibson His remote is not due till October . I moved clinic to September 22 at 2:30pm. Before Dr. Roth. If you could let patient know. Thank you ----- Message ----- From: Gibson Moore CMA Sent: 07/28/2024 8:35 AM EST To: Di Hernández RN Subject: Clinic check Hello. Mr. Nascimento called this morning to R/S his in office device check appointment due to the weather, which was scheduled with you this morning. He was also seeing Dr. Roth. He R/S Brenda's appointment for early September 2024. Do you want him to just send a remote? And or I can R/S him with you at the [place] office on 08-04-2024 @ 10:30. [place] [id number] 07-20-2024 36 JAYMIE Everton Renteria [employer] 01/09/24, labs 01/09/24. Rx pended. [place] [id number] 06-16-2024 36 Last OV with Everton Renteria on 01/09/[address] 06-15-2024 36 Patient called [facility] and wanted to see if he could fill his cialis through our pharmacy, He does not have refills at [facility] pharmacy for this and It the last prescription that was sent to [facility] has no refills on it. Patient requested that we ask the cardio provider that prescribed it last time for refills. If appropriate please send prescription to [facility] pharmacy, Rx pended for review, Thank you! [facility] 36 Last OV with Everton Renteria on 01/09/24 BMP 01/09/24 [facility] Basic Metabolic Profile (BMP )on 04-16-2024 BUN/CRE 16.9 RATIO Normal 10- [facility] Comment on above: Performed By: #### L 501.9520, L500.4100, L500.2500 #### [facility] [address] [place], [place], [id number] [place],Total 8.7 mg/dL Normal 8.5-10.1 [facility] Comment on above: Result Comment: Slig ht Lipemia, Result may be falsely increased. Performed By: #### L 501.9520, L500.4100, L500.2500 #### [facility] [address] [place], [address] Chloride [Moles/Vol] 100 mmol/L Normal 98-107 [facility] Comment on above: Performed By: #### L [id number], L500.4100, L500.2500 #### [facility] [address] [place], [address] CO2 [Moles/Vol] 27.0 mmol/L Normal 21.0-32.0 [facility] Comment on above: Result Comment: Slig ht Lipemia, Result may be falsely increased. Performed By: #### L 501.9520, L500.4100, L500.2500 #### [facility] [address] [place], [address] Creatinine [Mass/Vol] 2.61 mg/dL High 0.70-1.30 [facility] Comment on above: Result Comment: Slig ht Lipemia, Result may be falsely increased. The validity of the calculated GFR GFRAA in patients over 70 years has not been determined. Clinical correlation is essential. Performed By: #### L 501.9520, L500.4100, L500.2500 #### [facility] [address] [place], [address] EST GFR - AA 30 mL/min Low >60 [facility] Comment on above: Result Comment: Afri can [place] GFR Calc Performed By: #### L 501.9520, L500.4100, L500.2500 #### [facility] [address] [place], [address] GAP 10 Normal 5-15 [facility] Comment on above: Performed By: #### L 501.9520, L500.4100, L500.2500 #### [facility] [address] [place], [address] GFR/1.73 sq M.predicted among non-blacks MDRD (S/P/Bld) [Vol rate/Area] 25 mL/min/{1.73_m2} Low >60 [facility] Comment on above: Result Comment: Non- GFR Calc Performed By: #### L 501.9520, L500.4100, L500.2500 #### [facility] [address] [place], [address] Glucose [Mass/Vol] 161 mg/dL High 74-106 [facility] Comment on above: Result Comment: Slig ht Lipemia, Result may be falsely increased. Fasting Glucose result greater than or equal to 126 mg/dL suggests DIABETES MELLITUS per A.D.A. criteria. Performed By: #### L 501.9520, L500.4100, L500.2500 #### [facility] [address] [place], [address] Potassium [Moles/Vol] 3.4 mmol/L Low 3.5-5.1 [facility] Comment on above: Result Comment: Slig ht Lipemia, Result may be falsely increased. Performed By: #### L 501.9520, L500.4100, L500.2500 #### [facility] [address] [place], [address] Sodium [Moles/Vol] 136 mmol/L Normal 136-145 [facility] Comment on above: Performed By: #### L 501.9520, L500.4100, L500.2500 #### [facility] [address] [place], [address] Urea nitrogen [Mass/Vol] 44 mg/dL High 7-18 [facility] Comment on above: Result Comment: Slig ht Lipemia, Result may be falsely increased. Performed By: #### L 501.9520, L500.4100, L500.2500 #### [facility] [address] [place], [address] Lipid Profileon 04-16-2024 Cholesterol [Mass/Vol] 274 mg/dL High 200 [facility] Comment on above: Result Comment: Slig ht Lipemia, Result may be falsely increased. <200 mg/dL Desirable 200-240 mg/dL Borderline >240 mg/dL High Risk Performed By: #### L 501.9520, L500.4100, L500.2500 #### [facility] [address] [place], [address] Cholesterol in HDL [Mass/Vol] 28 mg/dL Low [facility] Comment on above: Result Comment: The drugs N-Acetylcysteine and Metamizole may falsely depress this assay. Reference Range HDL <40 mg/dL Low HDL Cholesterol HDL >or= 60 mg/dL High HDL Cholesterol Performed By: #### L 501.9520, L500.4100, L500.2500 #### [facility] [address] [place], [address] LDL TNP Normal 0-130 [facility] Comment on above: Performed By: #### L 501.9520, L500.4100, L500.2500 #### [facility] [address] [place], [address] Triglyceride [Mass/Vol] 644 mg/dL High [facility] Comment on above: Result Comment: The drugs N-Acetylcysteine and Metamizole may falsely depress this assay. Slight Lipemia, Result may be falsely increased. TRIGLYCERIDE IS GREATER THAN 400 mg/dL. LDL RESULT IS INVALID AND WILL NOT BE REPORTED. Serum Triglycerides Reference Interval Normal <150 mg/dL Borderline high 150 - 199 mg/dL High 200 - 499 mg/dL Very High > or = 500 mg/dL Performed By: #### L 501.9520, L500.4100, L500.2500 #### [facility] [address] [place], [address] VLDL TNP Normal 5-40 [facility] Comment on above: Performed By: #### L 501.9520, L500.4100, L500.2500 #### [facility] [address] [place], [address] Thyroid Stim Hormone (TSH)on 04-16-2024 TSH 1.380 uIU/mL Normal 0.358-3.740 [facility] Comment on above: Performed By: #### L 501.9520, L500.4100, L500.2500 ####[facility] [address] [place], [address] 36on 03-20-2024 36 There is very little difference between the vasodilators sildenafil and tadalafil. I will make the switch and discuss it with him at my next visit. [facility] 36on 03-19-2024 36 [facility] spoke with patient today; he stated he would like his sildenafil changed to tadalafil. Sildenafil was last prescribed by Dr. Roth in December. I told the patient I would ask the office but I told him it was likely that the office would need to speak with him first since he would not tell me why he would like it switched. If therapy change appropriate please send prescription to [facility] pharmacy, Thank you so much! [facility] 36on 03-18-2024 36 Last OV with Everton Renteria on 01/09/24 BMP 01/09/24 [facility] 36 Refill requested. RX pended. Thanks! [facility] Absolute lymphocyte countOrd ered By: Shaun Taveras on 11-27-2023 Lymphocytes Auto (Unsp spec) [#/Vol] 0.54 10*3/uL 0.83-4.51 [facility] Automated lymphocyte count a s percentage of total leukocytesOrdered By: Shaun Taveras on 11-27-2023 Lymphocytes/100 WBC Auto (Unsp spec) 2.1 % 19-41 [facility] Basophil percentageOrdered B y: Shaun Taveras on 11-27-2023 Lactate [Moles/Vol] 1.2 mmol/L 0.4-2.0 [facility] Basophil percentage 0 SEEN /hpf 0-5 [facility] Basophils/100 WBC (Bld) 0.3 % 0-1 [facility] Chloride [Moles/Vol] 95 mmol/L 98-107 [facility] Eosinophils/100 WBC (Bld) 0.4 % 0-5 [facility] Glucose [Mass/Vol] 214 mg/dL 74-106 [facility] Comment on above: Glucose result great er than or equal to 200 mg/dLsuggests DIABETES MELLITUS per A.D.A. criteria. Hemoglobin (Bld) [Mass/Vol] 11.1 g/dL 13.0-16.5 [facility] Monocytes/100 WBC (Bld) 4.0 % 0-10 [facility] Neutrophils (Bld) [#/Vol] 23.2 10*3/uL 2.0-7.7 [facility] Neutrophils/100 WBC (Bld) 90.4 % 47-70 [facility] Potassium [Moles/Vol] 3.2 mmol/L 3.5-5.1 [facility] Sodium [Moles/Vol] 132 mmol/L 136-145 [facility] WBC (Bld) [#/Vol] 25.7 10*3/uL 4.4-11.0 [facility] Bilirubin Test strip Ql (U)O rdered By: Shaun Taveras on 11-27-2023 Bilirubin Ql (U) Negative Negative [facility] Blood manual differential co mment interpretation (narrative result)Ordered By: Shaun Taveras on 11-27-2023 Manual differential comment Raymond (Bld) [Interp] SCANNED [facility] Determination of erythrocyte mean corpuscular volume (MCV)Ordered By: Shaun Taveras on 11-27-2023 MCV (RBC) [Entitic vol] 90.6 fL 80-94 [facility] Erythrocyte distribution wid th ratioOrdered By: Shaun Taveras on 11-27-2023 Erythrocyte distribution width (RBC) [Ratio] 13.7 % 11.6-14.6 [facility] Erythrocyte distribution wid th standard deviationOrdered By: Shaun Taveras on 11-27-2023 Erythrocyte distribution width (RBC) [Entitic vol] 45.2 fL 35.1-43.9 [facility] Hematocrit Auto (Bld) [Volum e fraction]Ordered By: Shaun Taveras on 11-27-2023 Hematocrit (Bld) [Volume fraction] 34.6 % 40-54 [facility] Immature granulocytes/100 WB C Auto (Bld)Ordered By: Shaun Taveras on 11-27-2023 Immature granulocytes/100 WBC (Bld) 2.800 % 0.0-0.9 [facility] Comment on above: IG% - Immature Granu locytes (promyelocytes, myelocytes and metamyelocytes) > 1% indicates that a LEFT SHIFT is Present. Ketones Test strip Ql (U)Ord ered By: Shaun Taveras on 11-27-2023 Ketones Ql (U) Negative Negative [facility] Laboratory - Chemistry and C hemistry - challengeOrdered By: Shaun Taveras on 11-27-2023 CK [Catalytic activity/Vol] 2351 U/L 39-308 [facility] CO2 [Moles/Vol] 23.0 mmol/L 21.0-32.0 [facility] Magnesium [Mass/Vol] 1.8 mg/dL 1.6-2.6 [facility] Natriuretic peptide B (Bld) [Mass/Vol] 610.2 pg/mL 0-100 [facility] Urea nitrogen/Creatinine [Mass ratio] 17.9 mg/mg 10-20 [facility] Laboratory - Hematology and Cell countsOrdered By: Shaun Taveras on 11-27-2023 MCH (RBC) [Entitic mass] 29.1 pg 27.0-32.0 [facility] MCHC (RBC) [Mass/Vol] 32.1 g/dL 32-36 [facility] Nucleated RBC/100 WBC (Bld) [Ratio] 0 % 0-5 [facility] Platelet mean volume (Bld) [Entitic vol] 11.3 fL 6.2-12.0 [facility] Platelets (Bld) [#/Vol] 226 10*3/uL 150-450 [facility] - Microbiology an d Antimicrobial susceptibilityOrdered By: Shaun Taveras on 11-27-2023 SARS-CoV-2 (COVID-19) RNA SUDEEP+probe Ql (Unsp spec) [facility] Mucus LM Ql (Urine sed)Order ed By: Shaun Taveras on 11-27-2023 Mucus Ql (Urine sed) 0 SEEN /hpf [facility] Nitrite Test strip Ql (U)Ord ered By: Shaun Taveras on 11-27-2023 Nitrite Ql (U) Negative Negative [facility] No Panel InformationOrdered By: Shaun Taveras on 11-27-2023 Urine RBC 0 SEEN /hpf 0-5 [facility] Estimated Creatinine Clearance Calc 15.27 ml/min [facility] Estimated GFR (MDRD) Amer 19 mL/min >60 [facility] Comment on above: GFR Calc Estimated GFR (MDRD) Non-Af Amer 16 mL/min >60 [facility] Comment on above: Non- GFR Calc Protein Test strip Ql (U)Ord ered By: Shaun Taveras on 11-27-2023 Protein Ql (U) Negative Negative [facility] RBC Auto (Bld) [#/Vol]Ordere d By: Shaun Taveras on 11-27-2023 RBC (Bld) [#/Vol] 3.82 10*6/uL 4.6-6.2 [facility] Serum or plasma calcium geena urement (mass/volume)Ordered By: Shaun Taveras on 11-27-2023 Calcium [Mass/Vol] 8.7 mg/dL 8.5-10.1 [facility] Serum or plasma creatinine m easurement (mass/volume)Ordered By: Shaun Taveras on 11-27-2023 Creatinine [Mass/Vol] 3.86 mg/dL 0.70-1.30 [facility] Comment on above: The validity of the calculated GFR & GFRAA in patients over 70 years has not been determined. Clinical correlation is essential. Serum or plasma thyroid stim ulating hormone (TSH) measurement (units/volume)Ordered By: Shaun Taveras on 11-27-2023 TSH Qn 1.10 uIU/mL 0.358-3.74 [facility] Serum or plasma urea nitroge n measurement (mass/volume)Ordered By: Shaun Taveras on 11-27-2023 Urea nitrogen [Mass/Vol] 69 mg/dL 7-18 [facility] Squamous epithelial cells de tection in urine sediment by light microscopyOrdered By: Shaun Taveras on 11-27-2023 Epithelial cells.squamous LM Ql (Urine sed) 0 SEEN /hpf 0-5 [facility] Thin prep Papanicolaou smear with manual screeningOrdered By: Shaun Taveras on 11-27-2023 Thin prep Papanicolaou smear with manual screening 14 5-15 [facility] Urine blood detectionOrdered By: Shaun Taveras on 11-27-2023 RBC Ql (U) Negative Negative [facility] Urine clarityOrdered By: Doug Taveras on 11-27-2023 Clarity (U) Clear Clear [facility] Urine color determinationOrd ered By: Shaun Taveras on 11-27-2023 Color (U) Yellow Yellow [facility] Urine glucose detectionOrder ed By: Shaun Taveras on 11-27-2023 Glucose Ql (U) Normal mg/dl Normal [facility] Urine leukocyte esterase det ection by dipstickOrdered By: Shaun Taveras on 11-27-2023 Leukocyte esterase Test strip Ql (U) Negative Negative [facility] Urine pHOrdered By: Shaun gregg on 11-27-2023 pH (U) 5.0 [pH] 5.0 - 8.0 [facility] Urine sediment bacteria coun t by microscopy (number/high power field)Ordered By: Shaun Taveras on 11-27-2023 Bacteria LM.HPF (Urine sed) [#/Area] 0 /[HPF] None Seen [facility] Urine specific gravity measu rementOrdered By: Shaun Taveras on 11-27-2023 Specific gravity (U) [Rel density] 1.015 1.002-1.030 [facility] Urine urobilinogen measureme ntOrdered By: Shaun Taveras on 11-27-2023 Urobilinogen Ql (U) Normal mg/dl Normal [facility] Basophil percentageOrdered B y: Rigoberto Durand on 08-29-2023 Chloride [Moles/Vol] 100 mmol/L 98-107 [facility] Glucose [Mass/Vol] 185 mg/dL 74-106 [facility] Comment on above: Fasting Glucose resu lt greater than or equal to 126 mg/dL suggests DIABETES MELLITUS per A.D.A. criteria. Potassium [Moles/Vol] 3.6 mmol/L 3.5-5.1 [facility] Sodium [Moles/Vol] 136 mmol/L 136-145 [facility] Laboratory - Chemistry and C hemistry - challengeOrdered By: Rigoberto Durand on 08-29-2023 CO2 [Moles/Vol] 30.0 mmol/L 21.0-32.0 [facility] Urea nitrogen/Creatinine [Mass ratio] 16.7 mg/mg 10-20 [facility] No Panel InformationOrdered By: Rigoberto Durand on 08-29-2023 Estimated GFR (MDRD) Amer 36 mL/min >60 [facility] Comment on above: GFR Calc Estimated GFR (MDRD) Non-Af Amer 29 mL/min >60 [facility] Comment on above: Non- GFR Calc Free Triiodothyronine (T3) pg/dL 1.8 pg/mL 2.18-3.98 [facility] Serum or plasma calcium geena urement (mass/volume)Ordered By: Rigoberto Durand on 08-29-2023 Calcium [Mass/Vol] 9.1 mg/dL 8.5-10.1 [facility] Serum or plasma creatinine m easurement (mass/volume)Ordered By: Rigoberto Durand on 08-29-2023 Creatinine [Mass/Vol] 2.27 mg/dL 0.70-1.30 [facility] Comment on above: The validity of the calculated GFR & GFRAA in patients over 70 years has not been determined. Clinical correlation is essential. Serum or plasma thyroid stim ulating hormone (TSH) measurement (units/volume)Ordered By: Rigoberto Durand on 08-29-2023 TSH Qn 2.06 uIU/mL 0.358-3.74 [facility] Serum or plasma urea nitroge n measurement (mass/volume)Ordered By: Rigoberto Durand on 08-29-2023 Urea nitrogen [Mass/Vol] 38 mg/dL 7-18 [facility] Thin prep Papanicolaou smear with manual screeningOrdered By: Rigoberto Durand on 08-29-2023 Thin prep Papanicolaou smear with manual screening 6 5-15 [facility] Thin prep Papanicolaou smear with manual screening 1.12 ng/dL 0.76-1.46 [facility] Basophil percentageOrdered B y: Rigobreto Durand on 06-02-2023 Bilirubin [Mass/Vol] 0.70 mg/dL 0.20-1.00 [facility] Comment on above: For patients on eltr ombopag therapy, use of Dimension [place] TBIL is not recommended. Chloride [Moles/Vol] 101 mmol/L 98-107 [facility] Cholesterol [Mass/Vol] 181 mg/dL <200 [facility] Comment on above: <200 mg/dL Desirable 200-240 mg/dL Borderline >240 mg/dL High Risk Glucose [Mass/Vol] 162 mg/dL 74-106 [facility] Comment on above: Fasting Glucose resu lt greater than or equal to 126 mg/dL suggests DIABETES MELLITUS per A.D.A. criteria. Potassium [Moles/Vol] 3.8 mmol/L 3.5-5.1 [facility] Protein [Mass/Vol] 7.3 g/dL 6.4-8.2 [facility] Sodium [Moles/Vol] 138 mmol/L 136-145 [facility] Triglyceride [Mass/Vol] 265 mg/dL <199 [facility] Comment on above: The drugs N-Acetylcy steine and Metamizole may falsely depress this assay.Serum Triglycerides Reference Interval Normal <150 mg/dL Borderline high 150 - 199 mg/dL High 200 - 499 mg/dL Very High > or = 500 mg/dL Laboratory - Chemistry and C hemistry - challengeOrdered By: Rigoberto Durand on 06-02-2023 ALP [Catalytic activity/Vol] 136 U/L 45-117 [facility] ALT [Catalytic activity/Vol] 30 U/L 16-61 [facility] CO2 [Moles/Vol] 27.0 mmol/L 21.0-32.0 [facility] Globulin (S) [Mass/Vol] 3.5 g/dL 2.2-4.2 [facility] Urea nitrogen/Creatinine [Mass ratio] 19.8 mg/mg 10-20 [facility] No Panel InformationOrdered By: Rigoberto Durand on 06-02-2023 Estimated GFR (MDRD) Amer 31 mL/min >60 [facility] Comment on above: GFR Calc Estimated GFR (MDRD) Non-Af Amer 26 mL/min >60 [facility] Comment on above: Non- GFR Calc Prostate Specific Antigen Screen 0.50 ng/mL 0.00-4.00 [facility] Comment on above: This test was perfor med using the TPSA assay method [facility]. Values obtained with differentassay methods cannot be used interchangably.When changing PSA assays in the course of monitoring apatient, additional sequential testing should be carriedout to confirm baseline values. Serum or plasma albumin geena urement (mass/volume)Ordered By: Rigoberto Durand on 06-02-2023 Albumin [Mass/Vol] 3.8 g/dL 3.2-5.0 [facility] Serum or plasma albumin/glob ulin mass ratioOrdered By: Rigoberto Durand on 06-02-2023 Albumin/Globulin [Mass ratio] 1.1 {ratio} 0.9-2.4 [facility] Serum or plasma calcium geena urement (mass/volume)Ordered By: Rigoberto Durand on 06-02-2023 Calcium [Mass/Vol] 8.3 mg/dL 8.5-10.1 [facility] Serum or plasma cholesterol in HDL measurement (mass/volume)Ordered By: Rigoberto Durand on 06-02-2023 Cholesterol in HDL [Mass/Vol] 37 mg/dL >40 [facility] Comment on above: The drugs N-Acetylcy steine and Metamizole may falsely depress this assay. Reference Range HDL <40 mg/dL Low HDL Cholesterol HDL >or= 60 mg/dL High HDL Cholesterol Serum or plasma cholesterol in VLDL measurement (mass/volume)Ordered By: Rigoberto Durand on 06-02-2023 Cholesterol in VLDL [Mass/Vol] 53 mg/dL 5-40 [facility] Serum or plasma creatinine m easurement (mass/volume)Ordered By: Rigoberto Durand on 06-02-2023 Creatinine [Mass/Vol] 2.53 mg/dL 0.70-1.30 [facility] Comment on above: The validity of the calculated GFR & GFRAA in patients over 70 years has not been determined. Clinical correlation is essential. Serum or plasma low density lipoprotein (LDL) cholesterol measurement (mass/volume)Ordered By: Rigoberto Durand on 06-02-2023 Cholesterol in LDL [Mass/Vol] 91 mg/dL 0-130 [facility] Serum or plasma urea nitroge n measurement (mass/volume)Ordered By: Rigoberto Durand on 06-02-2023 Urea nitrogen [Mass/Vol] 50 mg/dL 7-18 [facility] Thin prep Papanicolaou smear with manual screeningOrdered By: Rigoberto Durand on 06-02-2023 Thin prep Papanicolaou smear with manual screening 17 U/L 15-37 [facility] Thin prep Papanicolaou smear with manual screening 10 5-15 [facility] Basophil percentageOrdered B y: Rigoberto Durand on 03-04-2023 Chloride [Moles/Vol] 101 mmol/L 98-107 [facility] Cholesterol [Mass/Vol] 287 mg/dL <200 [facility] Comment on above: <200 mg/dL Desirable 200-240 mg/dL Borderline >240 mg/dL High Risk Glucose [Mass/Vol] 173 mg/dL 74-106 [facility] Comment on above: Fasting Glucose resu lt greater than or equal to 126 mg/dL suggests DIABETES MELLITUS per A.D.A. criteria. Potassium [Moles/Vol] 3.6 mmol/L 3.5-5.1 [facility] Sodium [Moles/Vol] 137 mmol/L 136-145 [facility] Triglyceride [Mass/Vol] 576 mg/dL <199 [facility] Comment on above: The drugs N-Acetylcy steine and Metamizole may falsely depress this assay. TRIGLYCERIDE IS GREATER THAN 400 mg/dL. LDL RESULT IS INVALID AND WILL NOT BE REPORTED.Serum Triglycerides Reference Interval Normal <150 mg/dL Borderline high 150 - 199 mg/dL High 200 - 499 mg/dL Very High > or = 500 mg/dL Laboratory - Chemistry and C hemistry - challengeOrdered By: Rigoberto Durand on 03-04-2023 CO2 [Moles/Vol] 29.0 mmol/L 21.0-32.0 [facility] Urea nitrogen/Creatinine [Mass ratio] 14.5 mg/mg 10-20 [facility] No Panel InformationOrdered By: Rigoberto Durand on 03-04-2023 Estimated GFR (MDRD) Amer 33 mL/min >60 [facility] Comment on above: GFR Calc Estimated GFR (MDRD) Non-Af Amer 27 mL/min >60 [facility] Comment on above: Non- GFR Calc Serum or plasma calcium geena urement (mass/volume)Ordered By: Rigoberto Durand on 03-04-2023 Calcium [Mass/Vol] 8.8 mg/dL 8.5-10.1 [facility] Serum or plasma cholesterol in HDL measurement (mass/volume)Ordered By: Rigoberto Durand on 03-04-2023 Cholesterol in HDL [Mass/Vol] 27 mg/dL >40 [facility] Comment on above: The drugs N-Acetylcy steine and Metamizole may falsely depress this assay. Reference Range HDL <40 mg/dL Low HDL Cholesterol HDL >or= 60 mg/dL High HDL Cholesterol Serum or plasma cholesterol in VLDL measurement (mass/volume)Ordered By: Rigoberto Durand on 03-04-2023 Cholesterol in VLDL [Mass/Vol] [facility] Comment on above: Test not performed Serum or plasma creatinine m easurement (mass/volume)Ordered By: Rigoberto Durand on 03-04-2023 Creatinine [Mass/Vol] 2.41 mg/dL 0.70-1.30 [facility] Comment on above: The validity of the calculated GFR & GFRAA in patients over 70 years has not been determined. Clinical correlation is essential. Serum or plasma low density lipoprotein (LDL) cholesterol measurement (mass/volume)Ordered By: Rigoberto Durand on 03-04-2023 Cholesterol in LDL [Mass/Vol] [facility] Comment on above: Test not performed Serum or plasma urea nitroge n measurement (mass/volume)Ordered By: Rigoberto Durand on 03-04-2023 Urea nitrogen [Mass/Vol] 35 mg/dL 02-04 [facility] Thin prep Papanicolaou smear with manual screeningOrdered By: Rigoberto Durand on 03-04-2023 Thin prep Papanicolaou smear with manual screening 12-02 [facility] Basophil percentageOrdered B y: Dr. Durand on 08-26-2022 Chloride [Moles/Vol] 99 mmol/L 98-107 [facility] Cholesterol [Mass/Vol] 143 mg/dL <200 [facility] Comment on above: <200 mg/dL Desirable 200-240 mg/dL Borderline >240 mg/dL High Risk Glucose [Mass/Vol] 156 mg/dL 74-106 [facility] Comment on above: Fasting Glucose resu lt greater than or equal to 126 mg/dL suggests DIABETES MELLITUS per A.D.A. criteria. Potassium [Moles/Vol] 3.7 mmol/L 3.5-5.1 [facility] Sodium [Moles/Vol] 138 mmol/L 136-145 [facility] Triglyceride [Mass/Vol] 370 mg/dL <199 [facility] Comment on above: The drugs N-Acetylcy steine and Metamizole may falsely depress this assay.Serum Triglycerides Reference Interval Normal <150 mg/dL Borderline high 150 - 199 mg/dL High 200 - 499 mg/dL Very High > or = 500 mg/dL Laboratory - Chemistry and C hemistry - challengeOrdered By: Dr. Duradn on 08-26-2022 CO2 [Moles/Vol] 28.0 mmol/L 21.0-32.0 [facility] Free T4 [Mass/Vol] 0.97 ng/dL 0.76-1.46 [facility] Urea nitrogen/Creatinine [Mass ratio] 18.5 mg/mg 10-20 [facility] No Panel InformationOrdered By: Dr. Durand on 08-26-2022 Estimated GFR (MDRD) Amer 26 mL/min >60 [facility] Comment on above: GFR Calc Estimated GFR (MDRD) Non-Af Amer 22 mL/min >60 [facility] Comment on above: Non- GFR Calc Free Triiodothyronine (T3) pg/dL 1.5 pg/mL 2.18-3.98 [facility] Thyroid Stimulating Hormone (TSH) 2.24 uIU/mL 0.358-3.74 [facility] Total Triiodothyronine 0.52 ng/mL 0.6-1.81 [facility] Serum or plasma calcium geena urement (mass/volume)Ordered By: Dr. Durand on 08-26-2022 Calcium [Mass/Vol] 8.9 mg/dL 8.5-10.1 [facility] Serum or plasma cholesterol in HDL measurement (mass/volume)Ordered By: Dr. Durand on 08-26-2022 Cholesterol in HDL [Mass/Vol] 32 mg/dL >40 [facility] Comment on above: The drugs N-Acetylcy steine and Metamizole may falsely depress this assay. Reference Range HDL <40 mg/dL Low HDL Cholesterol HDL >or= 60 mg/dL High HDL Cholesterol Serum or plasma cholesterol in VLDL measurement (mass/volume)Ordered By: Dr. Durand on 08-26-2022 Cholesterol in VLDL [Mass/Vol] 74 mg/dL 5-40 [facility] Serum or plasma creatinine m easurement (mass/volume)Ordered By: Dr. Durand on 08-26-2022 Creatinine [Mass/Vol] 2.98 mg/dL 0.70-1.30 [facility] Comment on above: The validity of the calculated GFR & GFRAA in patients over 70 years has not been determined. Clinical correlation is essential. Serum or plasma low density lipoprotein (LDL) cholesterol measurement (mass/volume)Ordered By: Dr. Durand on 08-26-2022 Cholesterol in LDL [Mass/Vol] 37 mg/dL 0-130 [facility] Serum or plasma urea nitroge n measurement (mass/volume)Ordered By: Dr. Durand on 08-26-2022 Urea nitrogen [Mass/Vol] 55 mg/dL 7-18 [facility] Thin prep Papanicolaou smear with manual screeningOrdered By: Dr. Durand on 08-26-2022 Thin prep Papanicolaou smear with manual screening 11 5-15 [facility] Basophil percentageOrdered B y: Dr. Durand on 05-16-2022 Chloride [Moles/Vol] 98 mmol/L 98-107 [facility] Cholesterol [Mass/Vol] 149 mg/dL <200 [facility] Comment on above: <200 mg/dL Desirable 200-240 mg/dL Borderline >240 mg/dL High Risk Glucose [Mass/Vol] 147 mg/dL 74-106 [facility] Comment on above: Fasting Glucose resu lt greater than or equal to 126 mg/dL suggests DIABETES MELLITUS per A.D.A. criteria. Potassium [Moles/Vol] 3.8 mmol/L 3.5-5.1 [facility] Sodium [Moles/Vol] 135 mmol/L 136-145 [facility] Triglyceride [Mass/Vol] 271 mg/dL <199 [facility] Comment on above: The drugs N-Acetylcy steine and Metamizole may falsely depress this assay.Serum Triglycerides Reference Interval Normal <150 mg/dL Borderline high 150 - 199 mg/dL High 200 - 499 mg/dL Very High > or = 500 mg/dL Laboratory - Chemistry and C hemistry - challengeOrdered By: Dr. Durand on 05-16-2022 CO2 [Moles/Vol] 27.0 mmol/L 21.0-32.0 [facility] Free T4 [Mass/Vol] 0.98 ng/dL 0.76-1.46 [facility] Urea nitrogen/Creatinine [Mass ratio] 22.8 mg/mg 10-20 [facility] No Panel InformationOrdered By: Dr. Durand on 05-16-2022 Estimated GFR (MDRD) Amer 26 mL/min >60 [facility] Comment on above: GFR Calc Estimated GFR (MDRD) Non-Af Amer 21 mL/min >60 [facility] Comment on above: Non- GFR Calc Free Triiodothyronine (T3) pg/dL 1.5 pg/mL 2.18-3.98 [facility] Prostate Specific Antigen Screen 0.33 ng/mL 0.00-4.00 [facility] Comment on above: This test was perfor med using the TPSA assay method for the[employer] chemistry system. Values obtained with differentassay methods cannot be used interchangably.When changing PSA assays in the course of monitoring apatient, additional sequential testing should be carriedout to confirm baseline values. Thyroid Stimulating Hormone (TSH) 1.79 uIU/mL 0.358-3.74 [facility] Urine Microalbumin/Creatinine Ratio 16.7 mg/g CRE <30 [facility] Serum or plasma calcium geena urement (mass/volume)Ordered By: Dr. Durand on 05-16-2022 Calcium [Mass/Vol] 9.0 mg/dL 8.5-10.1 [facility] Serum or plasma cholesterol in HDL measurement (mass/volume)Ordered By: Dr. Durand on 05-16-2022 Cholesterol in HDL [Mass/Vol] 33 mg/dL >40 [facility] Comment on above: The drugs N-Acetylcy steine and Metamizole may falsely depress this assay. Reference Range HDL <40 mg/dL Low HDL Cholesterol HDL >or= 60 mg/dL High HDL Cholesterol Serum or plasma cholesterol in VLDL measurement (mass/volume)Ordered By: Dr. Durand on 05-16-2022 Cholesterol in VLDL [Mass/Vol] 54 mg/dL 5-40 [facility] Serum or plasma creatinine m easurement (mass/volume)Ordered By: Dr. Durand on 05-16-2022 Creatinine [Mass/Vol] 3.03 mg/dL 0.70-1.30 [facility] Comment on above: The validity of the calculated GFR & GFRAA in patients over 70 years has not been determined. Clinical correlation is essential. Serum or plasma low density lipoprotein (LDL) cholesterol measurement (mass/volume)Ordered By: Dr. Durand on 05-16-2022 Cholesterol in LDL [Mass/Vol] 62 mg/dL 0-130 [facility] Serum or plasma urea nitroge n measurement (mass/volume)Ordered By: Dr. Durand on 05-16-2022 Urea nitrogen [Mass/Vol] 69 mg/dL 7-18 [facility] Thin prep Papanicolaou smear with manual screeningOrdered By: Dr. Durand on 05-16-2022 Thin prep Papanicolaou smear with manual screening 10 5-15 [facility] Thin prep Papanicolaou smear with manual screening 11.0 mg/L NO RANGE EST. [facility] Urine creatinine measurement (mass/volume)Ordered By: Dr. Durand on 05-16-2022 Creatinine (U) [Mass/Vol] 65.70 mg/dL NO RANGE EST. [facility] Echo 2D Doppler Coloron 08-3 TRANSTHORACIC ECHOCARDIOGRAM PATIENT: Megan Nascimento STUDY DATE: 03/20/2022 : 1940 AGE: 81 HT/WT: 170.2 cm (67 77.1 kg in) (169.6 lb) GENDER: M BP: 116 / 64 LOCATION: [facility] STATUS: *ORDERING PHYSICIAN: * Ruddy Gates *READING PHYSICIAN: * Cassia, *INFORMATION TECHNOLOGY ANALYST: * Tena Russo [facility] INDICATIONS: CHF. CONCLUSIONS SUMMARY: 1. Left ventricle: Systolic function is moderately decreased by the biplane method of disks. The estimated ejection fraction is 41%. However visually it seems to be lower more in the range of 30-35%. Features are consistent with a pseudonormal left ventricular filling pattern, with concomitant abnormal relaxation and increased filling pressure (grade 2 diastolic dysfunction). 2. Right ventricle: The cavity size is mildly dilated. Pacer wire noted in the right ventricle. Systolic function is normal. Right ventricular systolic pressure is at the upper limits of normal. The RV pressure during systole by Doppler is 34 mm Hg. 3. Aortic valve: There is mild-moderate, 1-2+ regurgitation. STUDY DATA: Complete transthoracic echocardiogram. Procedure: Image quality was suboptimal. The study was technically limited due to poor acoustic window availability and body habitus. Intravenous imaging enhancement (Definity) was administered to opacify the chamber. Definity lot #: [id number]. M-mode, complete 2D, complete spectral Doppler, and color flow Doppler images were acquired and archived for permanent storage and are available for subsequent review. Study status: Routine. Patient status: Outpatient. FINDINGS LEFT VENTRICLE: The cavity size is moderately dilated. Wall thickness is normal. Systolic function is moderately decreased by the biplane method of disks. The estimated ejection fraction is 41%. However visually it seems to be lower more in the range of 30-35%. LV global hypokinesis, with regional wal motion. Features are consistent with a pseudonormal left ventricular filling pattern, with concomitant abnormal relaxation and increased filling pressure (grade 2 diastolic dysfunction). E/e' average: 17 This value generally correlates with a high (>15) wedge pressure. RIGHT VENTRICLE: The cavity size is mildly dilated. Pacer wire noted in the right ventricle. Systolic function is normal. Right ventricular systolic pressure is at the upper limits of normal. VENTRICULAR SEPTUM: There is no evidence of a ventricular septal defect. LEFT ATRIUM: The atrium is severely dilated. RIGHT ATRIUM: The atrium is mildly dilated. Pacer wire noted in right atrium. ATRIAL SEPTUM: Color Doppler shows no shunt. MITRAL VALVE: Mildly calcified annulus. Doppler: There is trivial, less than 1+ regurgitation. AORTIC VALVE: Trileaflet; mildly thickened, mildly calcified leaflets. Thickening, consistent with sclerosis. Doppler: There is no stenosis. There is mild-moderate, 1-2+ regurgitation. Dimensionless index: 0.45. The valve area by the velocity-time integral method is 1.7 cm^2. The valve area index by the velocity-time integral method is 0.9 cm^2/m^2. The mean systolic gradient is 5 mm Hg. The peak systolic gradient is 11 mm Hg. The peak systolic velocity is 1.7 m/sec. TRICUSPID VALVE: Structurally normal valve. Doppler: There is mild-moderate, 1-2+ regurgitation. PULMONIC VALVE: Not well visualized. Doppler: There is trivial, less than 1+ regurgitation. AORTA: The aorta is well visualized and mildly dilated. PULMONARY ARTERY: Main pulmonary artery: Normal. PERICARDIUM: There is no pericardial effusion. SYSTEMIC VEINS: Well visualized. Inferior vena cava: The vessel is normal. The IVC collapses by greater than 50% with inspiration. Measurements Value Reference Aortic root ID 3.8 cm <4.1 Aortic root ID, STJ, ED 3.2 cm 2.3 - 3.5 Aortic root ID/bsa, STJ, ED 1.7 cm/m^2 1.1 - 1.9 Value Reference Ascending aorta ID (H) 4.2 cm 2.2 - 3.8 Ascending aorta ID/bsa, A-P (H) 2.2 cm/m^2 1.1 - 1.9 Left ventricle Value Reference LV ID, ED 5.4 cm 4.2 (more content not included)... [facility] Karan Antony MD - 03/20/2022 TRANSTHORACIC ECHOCARDIOGRAM PATIENT: Megan Nascimento STUDY DATE: 03/20/2022 : 1940 AGE: 81 HT/WT: 170.2 cm (67 77.1 kg in) (169.6 lb) GENDER: M BP: 116 / 64 LOCATION: [facility] STATUS: *ORDERING PHYSICIAN: * Ruddy Gates *READING PHYSICIAN: * Cassia, *INFORMATION TECHNOLOGY ANALYST: * Tena Russo [facility] INDICATIONS: CHF. CONCLUSIONS SUMMARY: 1. Left ventricle: Systolic function is moderately decreased by the biplane method of disks. The estimated ejection fraction is 41%. However visually it seems to be lower more in the range of 30-35%. Features are consistent with a pseudonormal left ventricular filling pattern, with concomitant abnormal relaxation and increased filling pressure (grade 2 diastolic dysfunction). 2. Right ventricle: The cavity size is mildly dilated. Pacer wire noted in the right ventricle. Systolic function is normal. Right ventricular systolic pressure is at the upper limits of normal. The RV pressure during systole by Doppler is 34 mm Hg. 3. Aortic valve: There is mild-moderate, 1-2+ regurgitation. STUDY DATA: Complete transthoracic echocardiogram. Procedure: Image quality was suboptimal. The study was technically limited due to poor acoustic window availability and body habitus. Intravenous imaging enhancement (Definity) was administered to opacify the chamber. Definity lot #: [id number]. M-mode, complete 2D, complete spectral Doppler, and color flow Doppler images were acquired and archived for permanent storage and are available for subsequent review. Study status: Routine. Patient status: Outpatient. FINDINGS LEFT VENTRICLE: The cavity size is moderately dilated. Wall thickness is normal. Systolic function is moderately decreased by the biplane method of disks. The estimated ejection fraction is 41%. However visually it seems to be lower more in the range of 30-35%. LV global hypokinesis, with regional wal motion. Features are consistent with a pseudonormal left ventricular filling pattern, with concomitant abnormal relaxation and increased filling pressure (grade 2 diastolic dysfunction). E/e' average: 17 This value generally correlates with a high (>15) wedge pressure. RIGHT VENTRICLE: The cavity size is mildly dilated. Pacer wire noted in the right ventricle. Systolic function is normal. Right ventricular systolic pressure is at the upper limits of normal. VENTRICULAR SEPTUM: There is no evidence of a ventricular septal defect. LEFT ATRIUM: The atrium is severely dilated. RIGHT ATRIUM: The atrium is mildly dilated. Pacer wire noted in right atrium. ATRIAL SEPTUM: Color Doppler shows no shunt. MITRAL VALVE: Mildly calcified annulus. Doppler: There is trivial, less than 1+ regurgitation. AORTIC VALVE: Trileaflet; mildly thickened, mildly calcified leaflets. Thickening, consistent with sclerosis. Doppler: There is no stenosis. There is mild-moderate, 1-2+ regurgitation. Dimensionless index: 0.45. The valve area by the velocity-time integral method is 1.7 cm^2. The valve area index by the velocity-time integral method is 0.9 cm^2/m^2. The mean systolic gradient is 5 mm Hg. The peak systolic gradient is 11 mm Hg. The peak systolic velocity is 1.7 m/sec. TRICUSPID VALVE: Structurally normal valve. Doppler: There is mild-moderate, 1-2+ regurgitation. PULMONIC VALVE: Not well visualized. Doppler: There is trivial, less than 1+ regurgitation. AORTA: The aorta is well visualized and mildly dilated. PULMONARY ARTERY: Main pulmonary artery: Normal. PERICARDIUM: There is no pericardial effusion. SYSTEMIC VEINS: Well visualized. Inferior vena cava: The vessel is normal. The IVC collapses by greater than 50% with inspiration. Measurements Value Reference Aortic root ID 3.8 cm <4.1 Aortic root ID, STJ, ED 3.2 cm 2.3 - 3.5 Aortic root ID/bsa, STJ, ED 1.7 cm/m^2 1.1 - 1.9 Value Reference Ascending aorta ID (H) 4.2 cm 2.2 - 3.8 Ascending aorta ID/bsa, A-P (H) 2.2 cm/m^2 1.1 - 1.9 Left ventricle Value Reference LV ID, ED 5.4 cm 4.2 - 5.8 LV ID, ES (H) 5.1 cm 2.5 - 4.0 LV ID/bsa, ED 2.8 cm/m^2 2.2 - 3.0 LV ID/bsa, ES (H) 2.7 cm/m^2 1.3 - 2.1 LV PW thickness, ED 0.9 cm 0.6 - 1.0 LV PW/LV ID ratio, ED 0.16 LV wall mass 177 g 96 - 200 LV wall mass/bsa 92 g/m^2 50 - 102 Stroke volume/bsa, 1-p A2C 30.7 ml/m^2 LV end-diastolic volu (more content not included)... [employer] Work Phone: Echo 2D Doppler ColorOrdered By: Karan Antony on 03-20-2022 [employer] Work Phone: Echo Complete w/wo Contrasto n 03-20-2022 Echo Complete w/wo Contrast Patient Name: MEGAN NASCIMENTO Ultrasound ACCESSION EXAM DATE/TIME PROCEDURE ORDERING PROVIDER [id number] 03/20/2022 11:41 EDT Echo Complete w/wo MD ANNA, RUDDY Gonzalez Contrast Reason For Exam (Echo Complete w/wo Contrast) chf Report TRANSTHORACIC ECHOCARDIOGRAM PATIENT: Megan Nascimento STUDY DATE: 03/20/2022 : 1940 AGE: 81 HT/WT: 170.2 cm (67 77.1 kg in) (169.6 lb) GENDER: M BP: 116 / 64 LOCATION: [facility] PATIENT Outpatient [facility] STATUS: *ORDERING PHYSICIAN: * Ruddy Gates *READING PHYSICIAN: * Cassia, *INFORMATION TECHNOLOGY ANALYST: * Tena MAYORGA INDICATIONS: CHF. CONCLUSIONS SUMMARY: 1. Left ventricle: Systolic function is moderately decreased by the biplane method of disks. The estimated ejection fraction is 41%. However visually it seems to be lower more in the range of 30-35%. Features are consistent with a pseudonormal left ventricular filling pattern, with concomitant abnormal relaxation and increased filling pressure (grade 2 diastolic dysfunction). 2. Right ventricle: The cavity size is mildly dilated. Pacer wire noted in the right ventricle. Systolic function is normal. Right ventricular systolic pressure is at the upper limits of normal. The RV pressure during systole by Doppler is 34 mm Hg. 3. Aortic valve: There is mild-moderate, 1-2+ regurgitation. STUDY DATA: Complete transthoracic echocardiogram. Procedure: Image quality was suboptimal. The study was technically limited due to poor acoustic window availability and body habitus. Intravenous imaging enhancement (Definity) was administered to opacify the chamber. Definity lot #: [id number]. M-mode, complete 2D, complete spectral Doppler, and color flow Doppler images were acquired and archived for permanent storage and are available for subsequent review. Study status: Routine. Patient status: Outpatient. Ultrasound Report FINDINGS LEFT VENTRICLE: The cavity size is moderately dilated. Wall thickness is normal. Systolic function is moderately decreased by the biplane method of disks. The estimated ejection fraction is 41%. However visually it seems to be lower more in the range of 30-35%. LV global hypokinesis, with regional wal motion. Features are consistent with a pseudonormal left ventricular filling pattern, with concomitant abnormal relaxation and increased filling pressure (grade 2 diastolic dysfunction). E/e' average: 17 This value generally correlates with a high (>15) wedge pressure. RIGHT VENTRICLE: The cavity size is mildly dilated. Pacer wire noted in the right ventricle. Systolic function is normal. Right ventricular systolic pressure is at the upper limits of normal. VENTRICULAR SEPTUM: There is no evidence of a ventricular septal defect. LEFT ATRIUM: The atrium is severely dilated. RIGHT ATRIUM: The atrium is mildly dilated. Pacer wire noted in right atrium. ATRIAL SEPTUM: Color Doppler shows no shunt. MITRAL VALVE: Mildly calcified annulus. Doppler: There is trivial, less than 1+ regurgitation. AORTIC VALVE: Trileaflet; mildly thickened, mildly calcified leaflets. Thickening, consistent with sclerosis. Doppler: There is no stenosis. There is mild-moderate, 1-2+ regurgitation. Dimensionless index: 0.45. The valve area by the velocity-time integral method is 1.7 cm^2. The valve area index by the velocity-time integral method is 0.9 cm^2/m^2. The mean systolic gradient is 5 mm Hg. The peak systolic gradient is 11 mm Hg. The peak systolic velocity is 1.7 m/sec. TRICUSPID VALVE: Structurally normal valve. Doppler: There is mild-moderate, 1-2+ regurgitation. PULMONIC VALVE: Not well visualized. Doppler: There is trivial, less than 1+ regurgitation. AORTA: The aorta is well visualized and mildly dilated. PULMONARY ARTERY: Main pulmonary artery: Normal. PERICARDIUM: There is no pericardial effusion. SYSTEMIC VEINS: Well visualized. Inferior vena cava: The vessel is normal. The IVC collapses by greater than 50% with inspiration. Measurements Value Reference Aortic root ID 3.8 cm <4.1 Aortic root ID, STJ, ED 3.2 cm 2.3 - 3.5 Aortic root ID/bsa, STJ, ED 1.7 cm/m^2 1.1 - 1.9 Value Reference Ascending aorta ID (H) 4.2 cm 2.2 - 3.8 Ascending aorta ID/bsa, A-P (H) 2.2 cm/m^2 1.1 - 1.9 Left ventricle Value Reference LV ID, ED 5.4 cm 4.2 - 5.8 LV ID, ES (H) 5.1 cm 2.5 - 4.0 LV ID/bsa, ED 2.8 cm/m^2 2.2 - 3.0 LV ID/bsa, ES (H) 2.7 cm/m^2 1.3 - 2.1 LV PW th (more content not included)... Normal [facility] Basophil percentageon 2021 Bilirubin [Mass/Vol] 0.40 mg/dL 0.20-1.00 [facility] Work Phone: Comment on above: For patients on eltr ombopag therapy, use of Dimension [place] TBIL is not recommended. Chloride [Moles/Vol] 97 mmol/L 98-107 [facility] Work Phone: Cholesterol [Mass/Vol] 219 mg/dL <200 [facility] Work Phone: Comment on above: <200 mg/dL Desirable 200-240 mg/dL Borderline >240 mg/dL High Risk Glucose [Mass/Vol] 140 mg/dL 74-106 [facility] Work Phone: Comment on above: Fasting Glucose resu lt greater than or equal to 126 mg/dL suggests DIABETES MELLITUS per A.D.A. criteria. Potassium [Moles/Vol] 3.8 mmol/L 3.5-5.1 [facility] Work Phone: Protein [Mass/Vol] 7.6 g/dL 6.4-8.2 [facility] Work Phone: Sodium [Moles/Vol] 137 mmol/L 136-145 [facility] Work Phone: Triglyceride [Mass/Vol] 190 mg/dL <199 [facility] Work Phone: Comment on above: The drugs N-Acetylcy steine and Metamizole may falsely depress this assay.Serum Triglycerides Reference Interval Normal <150 mg/dL Borderline high 150 - 199 mg/dL High 200 - 499 mg/dL Very High > or = 500 mg/dL Laboratory - Chemistry and C hemistry - challengeon 10-25-2021 ALP [Catalytic activity/Vol] 108 U/L 45-117 [facility] Work Phone: ALT [Catalytic activity/Vol] 25 U/L 16-61 [facility] Work Phone: CO2 [Moles/Vol] 34.0 mmol/L 21.0-32.0 [facility] Work Phone: Free T4 [Mass/Vol] 0.88 ng/dL 0.76-1.46 [facility] Work Phone: Globulin (S) [Mass/Vol] 4.0 g/dL 2.2-4.2 [facility] Work Phone: Urea nitrogen/Creatinine [Mass ratio] 21.8 mg/mg 10-20 [facility] Work Phone: No Panel Informationon 10-25 Estimated GFR (MDRD) Amer 28 mL/min >60 [facility] Work Phone: Comment on above: GFR Calc Estimated GFR (MDRD) Non-Af Amer 23 mL/min >60 [facility] Work Phone: Comment on above: Non- GFR Calc Free Triiodothyronine (T3) pg/dL 1.6 pg/mL 2.18-3.98 [facility] Work Phone: Thyroid Stimulating Hormone (TSH) 2.36 uIU/mL 0.358-3.74 [facility] Work Phone: Serum or plasma albumin geena urement (mass/volume)on 10-25-2021 Albumin [Mass/Vol] 3.6 g/dL 3.2-5.0 [facility] Work Phone: Serum or plasma albumin/glob ulin mass ratioon 10-25-2021 Albumin/Globulin [Mass ratio] 0.9 {ratio} 0.9-2.4 [facility] Work Phone: Serum or plasma calcium geena urement (mass/volume)on 10-25-2021 Calcium [Mass/Vol] 8.7 mg/dL 8.5-10.1 [facility] Work Phone: Serum or plasma cholesterol in HDL measurement (mass/volume)on 10-25-2021 Cholesterol in HDL [Mass/Vol] 44 mg/dL >40 [facility] Work Phone: Comment on above: The drugs N-Acetylcy steine and Metamizole may falsely depress this assay. Reference Range HDL <40 mg/dL Low HDL Cholesterol HDL >or= 60 mg/dL High HDL Cholesterol Serum or plasma cholesterol in VLDL measurement (mass/volume)on 10-25-2021 Cholesterol in VLDL [Mass/Vol] 38 mg/dL 5-40 [facility] Work Phone: Serum or plasma creatinine m easurement (mass/volume)on 10-25-2021 Creatinine [Mass/Vol] 2.84 mg/dL 0.70-1.30 [facility] Work Phone: Comment on above: The validity of the calculated GFR & GFRAA in patients over 70 years has not been determined. Clinical correlation is essential. Serum or plasma low density lipoprotein (LDL) cholesterol measurement (mass/volume)on 10-25-2021 Cholesterol in LDL [Mass/Vol] 137 mg/dL 0-130 [facility] Work Phone: Serum or plasma urea nitroge n measurement (mass/volume)on 10-25-2021 Urea nitrogen [Mass/Vol] 62 mg/dL 7-18 [facility] Work Phone: Thin prep Papanicolaou smear with manual screeningon 10-25-2021 Thin prep Papanicolaou smear with manual screening 25 U/L 15-37 [facility] Work Phone: Thin prep Papanicolaou smear with manual screening 6 5-15 [facility] Work Phone: Absolute lymphocyte counton 08-31-2021 Lymphocytes Auto (Unsp spec) [#/Vol] 1.08 10*3/uL 0.83-4.51 [facility] Work Phone: Basophil percentageon 2021 Basophils/100 WBC (Bld) 1.4 % 0-1 [facility] Work Phone: Eosinophils/100 WBC (Bld) 8.4 % 0-5 [facility] Work Phone: Neutrophils (Bld) [#/Vol] 3.8 10*3/uL 2.0-7.7 [facility] Work Phone: Neutrophils/100 WBC (Bld) 60.7 % 47-70 [facility] Work Phone: WBC (Bld) [#/Vol] 6.3 10*3/uL 4.4-11.0 [facility] Work Phone: Blood erythrocytes count (nu mber/volume)on 08-31-2021 RBC (Bld) [#/Vol] 3.44 10*6/uL 4.6-6.2 [facility] Work [facility]: Blood hemoglobin measurement (mass/volume)on 08-31-2021 Hemoglobin (Bld) [Mass/Vol] 10.1 g/dL 13.0-16.5 [facility] Work Phone: Blood lymphocytes/100 leukoc yteson 08-31-2021 Lymphocytes/100 WBC (Bld) 17.2 % 19-41 [facility] Work Phone: Blood monocytes/100 leukocyt eson 08-31-2021 Monocytes/100 WBC (Bld) 11.8 % 0-10 [facility] Work Phone: [phone] Blood platelet mean volumeon 08-31-2021 Platelet mean volume (Bld) [Entitic vol] 9.8 fL 6.2-12.0 [facility] Work Phone: Determination of erythrocyte mean corpuscular volume (MCV)on 08-31-2021 MCV (RBC) [Entitic vol] 92.4 fL 80-94 [facility] Work Phone: Hematocrit Auto (Bld) [Volum e fraction]on 08-31-2021 Hematocrit (Bld) [Volume fraction] 31.8 % 40-54 [facility] Work Phone: Laboratory - Hematology and Cell countson 08-31-2021 Erythrocyte distribution width (RBC) [Entitic vol] 49.4 fL 35.1-43.9 [facility] Work Phone: Erythrocyte distribution width (RBC) [Ratio] 14.6 % 11.6-14.6 [facility] Work Phone: Immature granulocytes/100 WBC (Bld) 0.500 % 0.0-0.9 [facility] Work Phone: Comment on above: IG% - Immature Granu locytes (promyelocytes, myelocytes and metamyelocytes) > 1% indicates that a LEFT SHIFT is Present. MCH (RBC) [Entitic mass] 29.4 pg 27.0-32.0 [facility] Work Phone: Nucleated RBC/100 WBC (Bld) [Ratio] 0 % 0-5 [facility] Work Phone: [phone] MCHC Auto (RBC) [Mass/Vol]on 08-31-2021 MCHC (RBC) [Mass/Vol] 31.8 g/dL 32-36 [facility] Work Phone: Platelets bldon 08-31-2021 Platelets (Bld) [#/Vol] 320 10*3/uL 150-450 [facility] Work Phone: Absolute lymphocyte counton 08-22-2021 Lymphocytes Auto (Unsp spec) [#/Vol] 1.00 10*3/uL 0.83-4.51 [facility] Work Phone: Basophil percentageon 2021 Basophils/100 WBC (Bld) 0.6 % 0-1 [facility] Work Phone: [phone] Chloride [Moles/Vol] 96 mmol/L 98-107 [facility] Work Phone: Eosinophils/100 WBC (Bld) 2.1 % 0-5 [facility] Work Phone: Glucose [Mass/Vol] 106 mg/dL 74-106 [facility] Work Phone: [phone] Comment on above: Fasting Glucose resu lt from 100 to 125 mg/dL suggests IMPAIRED HOMEOSTASIS per A.D.A. criteria. Neutrophils (Bld) [#/Vol] 6.2 10*3/uL 2.0-7.7 [facility] Work Phone: Neutrophils/100 WBC (Bld) 77.2 % 47-70 [facility] Work Phone: Potassium [Moles/Vol] 3.3 mmol/L 3.5-5.1 [facility] Work Phone: Sodium [Moles/Vol] 136 mmol/L 136-145 [facility] Work Phone: WBC (Bld) [#/Vol] 8.0 10*3/uL 4.4-11.0 [facility] Work Phone: Blood erythrocytes count (nu mber/volume)on 08-22-2021 RBC (Bld) [#/Vol] 3.10 10*6/uL 4.6-6.2 [facility] Work Phone: Blood hemoglobin measurement (mass/volume)on 08-22-2021 Hemoglobin (Bld) [Mass/Vol] 9.1 g/dL 13.0-16.5 [facility] Work Phone: Blood lymphocytes/100 leukoc yteson 08-22-2021 Lymphocytes/100 WBC (Bld) 12.5 % 19-41 [facility] Work Phone: Blood monocytes/100 leukocyt eson 08-22-2021 Monocytes/100 WBC (Bld) 7.0 % 0-10 [facility] Work Phone: [phone] Blood platelet mean volumeon 08-22-2021 Platelet mean volume (Bld) [Entitic vol] 8.8 fL 6.2-12.0 [facility] Work Phone: Determination of erythrocyte mean corpuscular volume (MCV)on 08-22-2021 MCV (RBC) [Entitic vol] 88.4 fL 80-94 [facility] Work Phone: Glucose Glucometer (BldC) [M ass/Vol]on 08-22-2021 Glucose [Mass/Vol] 119 mg/dL 70-110 [facility] Work [facility]: Comment on above: MANAGEMENT OF PATIEN T CARE PER NURSING PROTOCOL Hematocrit Auto (Bld) [Volum e fraction]on 08-22-2021 Hematocrit (Bld) [Volume fraction] 27.4 % 40-54 [facility] Work Phone: Laboratory - Chemistry and C hemistry - challengeon 08-22-2021 CO2 [Moles/Vol] 29.0 mmol/L 21.0-32.0 [facility] Work Phone: Urea nitrogen/Creatinine [Mass ratio] 40.1 mg/mg 10-20 [facility] Work Phone: Laboratory - Hematology and Cell countson 08-22-2021 Erythrocyte distribution width (RBC) [Entitic vol] 52.3 fL 35.1-43.9 [facility] Work Phone: Erythrocyte distribution width (RBC) [Ratio] 16.7 % 11.6-14.6 [facility] Work Phone: Immature granulocytes/100 WBC (Bld) 0.600 % 0.0-0.9 [facility] Work Phone: Comment on above: IG% - Immature Granu locytes (promyelocytes, myelocytes and metamyelocytes) > 1% indicates that a LEFT SHIFT is Present. MCH (RBC) [Entitic mass] 29.4 pg 27.0-32.0 [facility] Work Phone: Nucleated RBC/100 WBC (Bld) [Ratio] 0 % 0-5 [facility] Work Phone: MCHC Auto (RBC) [Mass/Vol]on 08-22-2021 MCHC (RBC) [Mass/Vol] 33.2 g/dL 32-36 [facility] Work Phone: No Panel Informationon 08-22 Estimated Creatinine Clearance Calc 17.52 ml/min [facility] Work Phone: Estimated GFR (MDRD) Amer 26 mL/min >60 [facility] Work Phone: Comment on above: GFR Calc Estimated GFR (MDRD) Non-Af Amer 21 mL/min >60 [facility] Work Phone: Comment on above: Non- GFR Calc Platelets bldon 08-22-2021 Platelets (Bld) [#/Vol] 301 10*3/uL 150-450 [facility] Work Phone: Serum or plasma calcium geena urement (mass/volume)on 08-22-2021 Calcium [Mass/Vol] 8.8 mg/dL 8.5-10.1 [facility] Work Phone: Serum or plasma creatinine m easurement (mass/volume)on 08-22-2021 Creatinine [Mass/Vol] 3.04 mg/dL 0.70-1.30 [facility] Work Phone: Comment on above: The validity of the calculated GFR & GFRAA in patients over 70 years has not been determined. Clinical correlation is essential. Serum or plasma urea nitroge n measurement (mass/volume)on 08-22-2021 Urea nitrogen [Mass/Vol] 122 mg/dL 7-18 [facility] Work Phone: Comment on above: Critical Result(s) C alled at: 04:54:27 08/22/2021 by: rPem Pitt TO Tabatha ISLAS RN (ICU) Results read back by same. Thin prep Papanicolaou smear with manual screeningon 08-22-2021 Thin prep Papanicolaou smear with manual screening 11 5-15 [facility] Work Phone: Blood manual differential co mment interpretation (narrative result)on 08-21-2021 Manual differential comment Raymond (Bld) [Interp] SCANNED [facility] Work Phone: Hypochromatic red blood cell detectionon 08-21-2021 Hypochromia Ql (Bld) 2+ [facility] Work Phone: No Panel Informationon 08-21 SARS-CoV-2 Antigen (Rapid) [facility] Work Phone: Review by pathologiston Pathologist review Raymond (Unsp spec) [Interp] Reviewed [facility] Work Phone: Comment on above: Previous reported re sult: Jossy floyd Edited by: PILLO on 08/22/21:0934Macrocytic anemia.Lymphopenia, relativeClinical correlation suggested.Art Bal D.O. 08/22/21 AMENDED REPORT 08/22/21 0934 PATH REV previously reported as: Jossy floyd Basophil percentageon 2021 Basophil percentage 0-5 SEEN /hpf [facility] Work Phone: Bilirubin [Mass/Vol] 0.40 mg/dL 0.20-1.00 [facility] Work Phone: Comment on above: For patients on eltr ombopag therapy, use of Dimension [place] TBIL is not recommended. Protein [Mass/Vol] 7.0 g/dL 6.4-8.2 [facility] Work Phone: Bilirubin Test strip Ql (U)o n 08-20-2021 Bilirubin Ql (U) Negative Negative [facility] Work Phone: Blood naomi cells detection b y light microscopyon 08-20-2021 Naomi cells LM Ql (Bld) 1+ [facility] Work Phone: Blood platelet adequacy dete ction by light microscopyon 08-20-2021 Platelets LM Ql (Bld) SLT INC ADEQ [facility] Work Phone: Blood polychromasia detectio n by light microscopyon 08-20-2021 Polychromasia LM Ql (Bld) RARE [facility] Work Phone: INR in Blood by Coagulation assayon 08-20-2021 INR Coag (Bld) [Relative time] 1.5 {INR} [facility] Work Phone: Ketones Test strip Ql (U)on 08-20-2021 Ketones Ql (U) Negative Negative [facility] Work Phone: Laboratory - Chemistry and C hemistry - challengeon 08-20-2021 ALP [Catalytic activity/Vol] 118 U/L 45-117 [facility] Work Phone: ALT [Catalytic activity/Vol] 20 U/L 16-61 [facility] Work Phone: Globulin (S) [Mass/Vol] 4.2 g/dL 2.2-4.2 [facility] Work Phone: Laboratory - Coagulationon 0 08-20-2021 PT Coag (PPP) [Time] 17.6 s 11.7-14.9 [facility] Work Phone: Laboratory - Hematology and Cell countson 08-20-2021 Anisocytosis Ql (Bld) 1+ [facility] Work Phone: Lower GI hemoglobin IA Ql (S tl)on 08-20-2021 Stool Occult Blood (BRAD) Positive [facility] Work Phone: Macrocytes detectionon 08-20 Macrocytes Ql (Bld) 1+ [facility] Work Phone: Mucus LM Ql (Urine sed)on Mucus Ql (Urine sed) 0 SEEN /hpf [facility] Work Phone: Nitrite Test strip Ql (U)on 08-20-2021 Nitrite Ql (U) Negative Negative [facility] Work Phone: No Panel Informationon 08-20 Troponin I High Sensitivity 31 pg/mL 3.0-78.0 [facility] Work Phone: Comment on above: Please Note: [place] t Units and Gender Specific Reference Ranges. For more information see Policy Stat Procedure [place] High Sensitivity Troponin (TNIH) and attachments. Ovalocyte detectionon 2021 Ovalocytes LM Ql (Bld) RARE [facility] Work Phone: Protein Test strip Ql (U)on 08-20-2021 Protein Ql (U) Negative Negative [facility] Work Phone: RBC morphologyon 08-20-2021 RBC morphology finding Nom (Bld) N CHROM NORMAL NORM C&C [facility] Work Phone: Serum or plasma albumin geena urement (mass/volume)on 08-20-2021 Albumin [Mass/Vol] 2.8 g/dL 3.2-5.0 [facility] Work Phone: Serum or plasma albumin/glob ulin mass ratioon 08-20-2021 Albumin/Globulin [Mass ratio] 0.7 {ratio} 0.9-2.4 [facility] Work Phone: Squamous epithelial cells de tection in urine sediment by light microscopyon 08-20-2021 Epithelial cells.squamous LM Ql (Urine sed) 0 SEEN /hpf [facility] Work Phone: Target cell detectionon 07-23 Target cells LM Ql (Bld) RARE [facility] Work Phone: Thin prep Papanicolaou smear with manual screeningon 08-20-2021 Thin prep Papanicolaou smear with manual screening 43 U/L 15-37 [facility] Work Phone: Comment on above: Moderate Hemolysis, Result may be falsely increased. Urine blood detectionon 07-23 RBC Ql (U) Negative Negative [facility] Work Phone: RBC Ql (U) 0 SEEN /hpf [facility] Work Phone: Urine clarityon 08-20-2021 Clarity (U) Sl. Cloudy Clear [facility] Work Phone: Urine color determinationon 08-20-2021 Color (U) Yellow Yellow [facility] Work Phone: Urine glucose detectionon Glucose Ql (U) Normal mg/dl Normal [facility] Work Phone: Urine leukocyte esterase det ection by dipstickon 08-20-2021 Leukocyte esterase Test strip Ql (U) 25 /ul Negative [facility] Work Phone: Urine pHon 08-20-2021 pH (U) 5.0 [pH] [facility] Work Phone: Urine sediment bacteria coun t by microscopy (number/high power field)on 08-20-2021 Bacteria LM.HPF (Urine sed) [#/Area] 0 /[HPF] None Seen [facility] Work Phone: Urine specific gravity measu rementon 08-20-2021 Specific gravity (U) [Rel density] 1.010 [facility] Work Phone: Urobilinogen Auto test strip Ql (U)on 08-20-2021 Urobilinogen Ql (U) Normal mg/dl Normal [facility] Work Phone: Basophil percentageon 2021 Chloride [Moles/Vol] 90 mmol/L 98-107 [facility] Work Phone: Glucose [Mass/Vol] 120 mg/dL 74-106 [facility] Work Phone: Comment on above: Fasting Glucose resu lt from 100 to 125 mg/dL suggests IMPAIRED HOMEOSTASIS per A.D.A. criteria. Potassium [Moles/Vol] 4.1 mmol/L 3.5-5.1 [facility] Work Phone: Sodium [Moles/Vol] 131 mmol/L 136-145 [facility] Work Phone: Laboratory - Chemistry and C hemistry - challengeon 08-09-2021 CO2 [Moles/Vol] 31.0 mmol/L 21.0-32.0 [facility] Work Phone: Urea nitrogen/Creatinine [Mass ratio] 36.8 mg/mg 05-09 [facility] Work Phone: No Panel Informationon 08-09 Estimated GFR (MDRD) Amer 25 mL/min >60 [facility] Work Phone: Comment on above: GFR Calc Estimated GFR (MDRD) Non-Af Amer 20 mL/min >60 [facility] Work Phone: Comment on above: Non- GFR Calc Serum or plasma calcium geena urement (mass/volume)on 08-09-2021 Calcium [Mass/Vol] 9.6 mg/dL 8.5-10.1 [facility] Work Phone: Serum or plasma creatinine m easurement (mass/volume)on 08-09-2021 Creatinine [Mass/Vol] 3.15 mg/dL 0.70-1.30 [facility] Work Phone: Comment on above: The validity of the calculated GFR & GFRAA in patients over 70 years has not been determined. Clinical correlation is essential. Serum or plasma urea nitroge n measurement (mass/volume)on 08-09-2021 Urea nitrogen [Mass/Vol] 116 mg/dL 7-18 [facility] Work Phone: Comment on above: Critical Result(s) C alled at: 10:47:15 08/09/2021 by: Claudine King. Results read back by same. Thin prep Papanicolaou smear with manual screeningon 08-09-2021 Thin prep Papanicolaou smear with manual screening 10 5-15 [facility] Work Phone: Absolute lymphocyte counton 07-09-2021 Lymphocytes Auto (Unsp spec) [#/Vol] 1.02 10*3/uL 0.83-4.51 [facility] Work Phone: Basophil percentageon 2020 Eosinophils/100 WBC (Bld) 10.9 % 0-5 [facility] Work Phone: Neutrophils (Bld) [#/Vol] 3.1 10*3/uL 2.0-7.7 [facility] Work Phone: WBC (Bld) [#/Vol] 5.2 10*3/uL 4.4-11.0 [facility] Blood erythrocytes count (nu mber/volume)on 07-09-2021 RBC (Bld) [#/Vol] 2.75 10*6/uL 4.6-6.2 [facility]: Blood hemoglobin measurement (mass/volume)on 07-09-2021 Hemoglobin (Bld) [Mass/Vol] 8.0 g/dL 13.0-16.5 [facility] Work Phone: Blood lymphocytes/100 leukoc yteson 07-09-2021 Lymphocytes/100 WBC (Bld) 19.8 % 19-41 [facility] Work Phone: Blood monocytes/100 leukocyt eson 07-09-2021 Monocytes/100 WBC (Bld) 8.2 % 0-10 [facility] Work Phone: Blood platelet mean volumeon 07-09-2021 Platelet mean volume (Bld) [Entitic vol] 10.3 fL 6.2-12.0 [facility] Work Phone: Determination of erythrocyte mean corpuscular volume (MCV)on 07-09-2021 MCV (RBC) [Entitic vol] 92.7 fL 80-94 [facility] Work Phone: Hematocrit Auto (Bld) [Volum e fraction]on 07-09-2021 Hematocrit (Bld) [Volume fraction] 25.5 % 40-54 [facility] Work Phone: Laboratory - Hematology and Cell countson 07-09-2021 Basophils/100 WBC (Unsp spec) 1.0 % 0-1 [facility] Work Phone: Erythrocyte distribution width (RBC) [Entitic vol] 53.7 fL 35.1-43.9 [facility] Work Phone: Erythrocyte distribution width (RBC) [Ratio] 15.8 % 11.6-14.6 [facility] Work Phone: Immature granulocytes/100 WBC (Bld) 0.400 % 0.0-0.9 [facility] Work Phone: Comment on above: IG% - Immature Granu locytes (promyelocytes, myelocytes and metamyelocytes) > 1% indicates that a LEFT SHIFT is Present. MCH (RBC) [Entitic mass] 29.1 pg 27.0-32.0 [facility] Work Phone: Neutrophils/100 WBC (Bld) 59.7 % 47-70 [facility] Work Phone: Nucleated RBC/100 WBC (Bld) [Ratio] 0 % 0-5 [facility] Work Phone: MCHC Auto (RBC) [Mass/Vol]on 07-09-2021 MCHC (RBC) [Mass/Vol] 31.4 g/dL 32-36 [facility] Work Phone: Platelets bldon 07-09-2021 Platelets (Bld) [#/Vol] 276 10*3/uL 150-450 [facility] Work Phone: Basic Metabolic Panelon 11-0 -2020 Anion gap [Moles/Vol] 5 mmol/L Normal 3-13 [facility] Comment on above: Order Comment: SLIGH T HEMOLYSIS Performed By: #### L IPD2, BMP3, MG3 #### [facility] [address] [place] [address] Calcium [Mass/Vol] 9.4 mg/dL Normal 8.4-10.4 [facility] Comment on above: Order Comment: SLIGH T HEMOLYSIS Performed By: #### L IPD2, BMP3, MG3 #### [facility] [address] [place] [address] CO2 [Moles/Vol] 36 mmol/L High 22-30 [facility] Comment on above: Order Comment: SLIGH T HEMOLYSIS Performed By: #### L IPD2, BMP3, MG3 #### [facility] [address] [place] [address] Creatinine [Mass/Vol] 2.03 mg/dL High 0.52-1.25 [facility] Comment on above: Order Comment: SLIGH T HEMOLYSIS Performed By: #### L IPD2, BMP3, MG3 #### [facility] [address] [place] [address] GFR/1.73 sq M.predicted among blacks MDRD (S/P/Bld) [Vol rate/Area] 34.4 mL/min/{1.73_m2} Abnormal >60 [facility] Comment on above: Order Comment: SLIGH T HEMOLYSIS Performed By: #### L IPD2, BMP3, MG3 #### [facility] [address] [place] [address] GFR/1.73 sq M.predicted among non-blacks MDRD (S/P/Bld) [Vol rate/Area] 29.7 mL/min/{1.73_m2} Abnormal >60 [facility] Comment on above: Order Comment: SLIGH T HEMOLYSIS Result Comment: KDIG O guidelines provide the following GFR categories: Stage GFR(ml/min/1.73 m2) Terms G1 >=90 Normal or high G2 60-89 Mildly decreased* G3a 45-59 Mildly to moderately decreased G3b 30-44 Moderately to severely decreased G4 15-29 Severely decreased G5 <15 Kidney failure *Relative to young adult level. In the absence of evidence of kidney damage, neither GFR category G1 nor G2 fulfill the criteria for CKD. The CKD-EPI equation is validated in individuals 18 years of age and older. Currently the best equation for estimating glomerular filtration rate (GFR) from serum creatinine in children is the Bedside Robertson equation. It is less accurate in patients with extremes of muscle mass, restriction of dietary protein, ingestion of creatine, extra-renal metabolism of creatinine, or treatment with medications that affect renal tubular creatinine secretion. Performed By: #### L IPD2, BMP3, MG3 #### [facility] [address] [place] [address] Glucose [Mass/Vol] 97 mg/dL Normal 70-100 [facility] Comment on above: Order Comment: SLIGH T HEMOLYSIS Performed By: #### L IPD2, BMP3, MG3 #### [facility] [address] [place] [address] Urea nitrogen [Mass/Vol] 80 mg/dL High 7-17 [facility] Comment on above: Order Comment: SLIGH T HEMOLYSIS Performed By: #### L IPD2, BMP3, MG3 #### [facility] [address] [place] [address] Chloride [Moles/Vol] 98 mmol/L Normal 98-107 [facility] Comment on above: Order Comment: SLIGH T HEMOLYSIS Performed By: #### L IPD2, BMP3, MG3 #### [facility] [address] [place] [address] Potassium [Moles/Vol] 4.0 mmol/L Normal 3.5-5.1 [facility] Comment on above: Order Comment: SLIGH T HEMOLYSIS Performed By: #### L IPD2, BMP3, MG3 #### [facility] [address] [place] [address] Sodium [Moles/Vol] 139 mmol/L Normal 135-145 [facility] Comment on above: Order Comment: SLIGH T HEMOLYSIS Performed By: #### L IPD2, BMP3, MG3 #### [facility] [address] [place] [address] Glucose,Bedsideon 05-21-2021 Glucose [Mass/Vol] 154 mg/dL High 70-100 [facility] Comment on above: Result Comment: Test performed by glucose meter. Results may be 10%-15% lower than serum/plasma values. (CLIA ID [id number]) Performed By: #### L IPD2, BMP3, MG3 #### [facility] [address] [place] [address] Glucose [Mass/Vol] 96 mg/dL Normal 70-100 [facility] Comment on above: Result Comment: Test performed by glucose meter. Results may be 10%-15% lower than serum/plasma values. (CLIA ID [id number]) Performed By: #### B GLU #### [facility] [address] [place] [address] Hemogram w/ Autodiffon 05-21 Abs Baso Cnt 0.0 10*3/uL Normal 0.0-0.2 [facility] Comment on above: Performed By: #### B NP3, TROPN, BMP3, HEMDF #### [facility] [address] [place] [address] Abs Neutrophile Cnt 2.1 10*3/uL Normal 1.8-7.0 [facility] Comment on above: Performed By: #### B NP3, TROPN, BMP3, HEMDF #### [facility] [address] [place] [address] Basophils/100 WBC (Bld) 0.5 % Normal 0.0-2.0 [facility] Comment on above: Performed By: #### B NP3, TROPN, BMP3, HEMDF #### [facility] [address] [place] [address] Eosinophils (Bld) [#/Vol] 0.4 10*3/uL Normal 0.0-0.5 [facility] Comment on above: Performed By: #### B NP3, TROPN, BMP3, HEMDF #### [facility] [address] [place] [address] Eosinophils/100 WBC (Bld) 11.8 % High 1.0-6.0 [facility] Comment on above: Performed By: #### B NP3, TROPN, BMP3, HEMDF #### [facility] [address] [place] [address] Erythrocyte distribution width (RBC) [Ratio] 18.6 % High 11.5-14.5 [facility] Comment on above: Performed By: #### B NP3, TROPN, BMP3, HEMDF #### [facility] [address] [place] [address] Granulocytes/100 WBC (Bld) 57.5 % Normal 40.0-80.0 [facility] Comment on above: Performed By: #### B NP3, TROPN, BMP3, HEMDF #### [facility] [address] [place] [address] Hematocrit (Bld) [Volume fraction] 32.7 % Low 40.0-52.0 [facility] Comment on above: Performed By: #### B NP3, TROPN, BMP3, HEMDF #### [facility] [address] [place] [address] Hemoglobin (Bld) [Mass/Vol] 10.9 g/dL Low 13.0-18.0 [facility] Comment on above: Performed By: #### B NP3, TROPN, BMP3, HEMDF #### [facility] [address] [place] [address] Lymphocytes (Bld) [#/Vol] 0.7 10*3/uL Low 1.0-4.3 [facility] Comment on above: Performed By: #### B NP3, TROPN, BMP3, HEMDF #### [facility] [address] [place] [address] Lymphocytes/100 WBC (Bld) 19.1 % Low 20.0-40.0 [facility] Comment on above: Performed By: #### B NP3, TROPN, BMP3, HEMDF #### [facility] [address] [place] [address] MCH (RBC) [Entitic mass] 30.0 pg Normal 26.0-34.0 [facility] Comment on above: Performed By: #### B NP3, TROPN, BMP3, HEMDF #### [facility] [address] [place] [address] MCHC 33.2 % Normal 32.0-36.0 [facility] Comment on above: Performed By: #### B NP3, TROPN, BMP3, HEMDF #### [facility] [address] [place] [address] MCV (RBC) [Entitic vol] 90.4 fL Normal 80.0-98.0 [facility] Comment on above: Performed By: #### B NP3, TROPN, BMP3, HEMDF #### [facility] [address] [place] [address] Monocytes (Bld) [#/Vol] 0.4 10*3/uL Normal 0.0-0.8 [facility] Comment on above: Performed By: #### B NP3, TROPN, BMP3, HEMDF #### [facility] [address] [place] [address] Monocytes/100 WBC (Bld) 11.1 % High 2.0-10.0 [facility] Comment on above: Performed By: #### B NP3, TROPN, BMP3, HEMDF #### [facility] [address] [place] [address] Platelet mean volume (Bld) [Entitic vol] 10.0 fL Normal 7.4-10.4 [facility] Comment on above: Performed By: #### B NP3, TROPN, BMP3, HEMDF #### [facility] [address] [place] [address] Platelets (Bld) [#/Vol] 295 10*3/uL Normal 140-440 [facility] Comment on above: Performed By: #### B NP3, TROPN, BMP3, HEMDF #### [facility] [address] [place] [address] RBC (Bld) [#/Vol] 3.62 10*6/uL Low 4.40-5.90 [facility] Comment on above: Performed By: #### B NP3, TROPN, BMP3, HEMDF #### [facility] [address] [place] [address] WBC (Bld) [#/Vol] 3.7 10*3/uL Normal 3.6-10.7 [facility] Comment on above: Performed By: #### B NP3, TROPN, BMP3, HEMDF #### [facility] [address] [place] [address] Basic Metabolic Panelon 10-3 Anion gap [Moles/Vol] 9 mmol/L Normal 3-13 [facility] Comment on above: Performed By: #### B GLU #### [facility] [address] [place] [address] Calcium [Mass/Vol] 9.4 mg/dL Normal 8.4-10.4 [facility] Comment on above: Performed By: #### B GLU #### [facility] [address] [place] [address] CO2 [Moles/Vol] 33 mmol/L High 22-30 [facility] Comment on above: Performed By: #### B GLU #### [facility] [address] [place] [address] Creatinine [Mass/Vol] 2.21 mg/dL High 0.52-1.25 [facility] Comment on above: Performed By: #### B GLU #### [facility] [address] [place] [address] GFR/1.73 sq M.predicted among blacks MDRD (S/P/Bld) [Vol rate/Area] 31.0 mL/min/{1.73_m2} Abnormal >60 [facility] Comment on above: Performed By: #### B GLU #### [facility] [address] [place] [address] GFR/1.73 sq M.predicted among non-blacks MDRD (S/P/Bld) [Vol rate/Area] 26.8 mL/min/{1.73_m2} Abnormal >60 [facility] Comment on above: Result Comment: KDIG O guidelines provide the following GFR categories: Stage GFR(ml/min/1.73 m2) Terms G1 >=90 Normal or high G2 60-89 Mildly decreased* G3a 45-59 Mildly to moderately decreased G3b 30-44 Moderately to severely decreased G4 15-29 Severely decreased G5 <15 Kidney failure *Relative to young adult level. In the absence of evidence of kidney damage, neither GFR category G1 nor G2 fulfill the criteria for CKD. The CKD-EPI equation is validated in individuals 18 years of age and older. Currently the best equation for estimating glomerular filtration rate (GFR) from serum creatinine in children is the Bedside Robertson equation. It is less accurate in patients with extremes of muscle mass, restriction of dietary protein, ingestion of creatine, extra-renal metabolism of creatinine, or treatment with medications that affect renal tubular creatinine secretion. Performed By: #### B GLU #### [facility] [address] [place] [address] Glucose [Mass/Vol] 101 mg/dL High 70-100 [facility] Comment on above: Performed By: #### B GLU #### [facility] [address] [place] [address] Urea nitrogen [Mass/Vol] 72 mg/dL High 7-17 [facility] Comment on above: Performed By: #### B GLU #### [facility] [address] [place] [address] Chloride [Moles/Vol] 97 mmol/L Low 98-107 [facility] Comment on above: Performed By: #### B GLU #### [facility] [address] [place] [address] Potassium [Moles/Vol] 3.9 mmol/L Normal 3.5-5.1 [facility] Comment on above: Performed By: #### B GLU #### [facility] [address] [place] [address] Sodium [Moles/Vol] 140 mmol/L Normal 135-145 [facility] Comment on above: Performed By: #### B GLU #### [facility] [address] [place] [address] Glucose,Bedsideon 05-20-2021 Glucose [Mass/Vol] 153 mg/dL High 70-100 [facility] Comment on above: Result Comment: Test performed by glucose meter. Results may be 10%-15% lower than serum/plasma values. (CLIA ID [id number]) Performed By: #### L IPD2, BMP3, MG3 #### [facility] [address] [place] [address] Glucose [Mass/Vol] 148 mg/dL High 70-100 [facility] Comment on above: Result Comment: Test performed by glucose meter. Results may be 10%-15% lower than serum/plasma values. (CLIA ID [id number]) Performed By: #### B GLU #### [facility] [address] [place] [address] Glucose [Mass/Vol] 125 mg/dL High 70-100 [facility] Comment on above: Result Comment: Test performed by glucose meter. Results may be 10%-15% lower than serum/plasma values. (CLIA ID [id number]) Performed By: #### B GLU #### [facility] [address] [place] [address] Glucose [Mass/Vol] 99 mg/dL Normal 70-100 [facility] Comment on above: Result Comment: Test performed by glucose meter. Results may be 10%-15% lower than serum/plasma values. (CLIA ID [id number]) Performed By: #### L IPD2, BMP3, MG3 #### [facility] [address] [place] [address] Hemogram w/ Autodiffon 05-20 Abs Baso Cnt 0.1 10*3/uL Normal 0.0-0.2 [facility] Comment on above: Performed By: #### B GLU #### [facility] [address] [place] [address] Abs Neutrophile Cnt 2.5 10*3/uL Normal 1.8-7.0 [facility] Comment on above: Performed By: #### B GLU #### [facility] [address] [place] [address] Basophils/100 WBC (Bld) 1.7 % Normal 0.0-2.0 [facility] Comment on above: Performed By: #### B GLU #### [facility] [address] [place] [address] Eosinophils (Bld) [#/Vol] 0.5 10*3/uL Normal 0.0-0.5 [facility] Comment on above: Performed By: #### B GLU #### [facility] [address] [place] [address] Eosinophils/100 WBC (Bld) 11.1 % High 1.0-6.0 [facility] Comment on above: Performed By: #### B GLU #### [facility] [address] [place] [address] Erythrocyte distribution width (RBC) [Ratio] 18.1 % High 11.5-14.5 [facility] Comment on above: Performed By: #### B GLU #### [facility] [address] [place] [address] Granulocytes/100 WBC (Bld) 55.7 % Normal 40.0-80.0 [facility] Comment on above: Performed By: #### B GLU #### [facility] [address] [place] [address] Hematocrit (Bld) [Volume fraction] 35.8 % Low 40.0-52.0 [facility] Comment on above: Performed By: #### B GLU #### [facility] [address] [place] [address] Hemoglobin (Bld) [Mass/Vol] 11.5 g/dL Low 13.0-18.0 [facility] Comment on above: Performed By: #### B GLU #### [facility] [address] [place] [address] Lymphocytes (Bld) [#/Vol] 0.9 10*3/uL Low 1.0-4.3 [facility] Comment on above: Performed By: #### B GLU #### [facility] [address] [place] [address] Lymphocytes/100 WBC (Bld) 19.8 % Low 20.0-40.0 [facility] [facility] Comment on above: Performed By: #### B GLU #### [facility] [address] [place] [address] MCH (RBC) [Entitic mass] 29.4 pg Normal 26.0-34.0 [facility] Comment on above: Performed By: #### B GLU #### [facility] [address] [place] [address] MCHC 32.1 % Normal 32.0-36.0 [facility] Comment on above: Performed By: #### B GLU #### [facility] [address] [place] [address] MCV (RBC) [Entitic vol] 91.5 fL Normal 80.0-98.0 [facility] Comment on above: Performed By: #### B GLU #### [facility] [address] [place] [address] Monocytes (Bld) [#/Vol] 0.5 10*3/uL Normal 0.0-0.8 [facility] Comment on above: Performed By: #### B GLU #### [facility] [address] [place] [address] Monocytes/100 WBC (Bld) 11.7 % High 2.0-10.0 [facility] Comment on above: Performed By: #### B GLU #### [facility] [address] [place] [address] Platelet mean volume (Bld) [Entitic vol] 8.5 fL Normal 7.4-10.4 [facility] Comment on above: Performed By: #### B GLU #### [facility] [address] [place] [address] Platelets (Bld) [#/Vol] 221 10*3/uL Normal 140-440 [facility] Comment on above: Performed By: #### B GLU #### [facility] [address] [place] [address] RBC (Bld) [#/Vol] 3.91 10*6/uL Low 4.40-5.90 [facility] Comment on above: Performed By: #### B GLU #### [facility] [address] [place] [address] WBC (Bld) [#/Vol] 4.4 10*3/uL Normal 3.6-10.7 [facility] Comment on above: Performed By: #### B GLU #### [facility] [address] [place] [address] Basic Metabolic Panelon 10-3 0-2020 Calcium [Mass/Vol] 9.6 mg/dL Normal 8.4-10.4 [facility] Comment on above: Performed By: #### B NP3, TROPN, BMP3, HEMDF #### [facility] [address] [place] [address] Glucose [Mass/Vol] 99 mg/dL Normal 70-100 [facility] Comment on above: Performed By: #### B NP3, TROPN, BMP3, HEMDF #### [facility] [address] [place] [address] Anion gap [Moles/Vol] 7 mmol/L Normal 3-13 [facility] Comment on above: Performed By: #### B NP3, TROPN, BMP3, HEMDF #### [facility] [address] [place] [address] CO2 [Moles/Vol] 32 mmol/L High 22-30 [facility] Comment on above: Performed By: #### B NP3, TROPN, BMP3, HEMDF #### [facility] [address] [place] [address] Creatinine [Mass/Vol] 2.35 mg/dL High 0.52-1.25 [facility] Comment on above: Performed By: #### B NP3, TROPN, BMP3, HEMDF #### [facility] [address] [place] [address] GFR/1.73 sq M.predicted among blacks MDRD (S/P/Bld) [Vol rate/Area] 28.8 mL/min/{1.73_m2} Abnormal >60 [facility] Comment on above: Performed By: #### B NP3, TROPN, BMP3, HEMDF #### [facility] [address] [place] [address] GFR/1.73 sq M.predicted among non-blacks MDRD (S/P/Bld) [Vol rate/Area] 24.8 mL/min/{1.73_m2} Abnormal >60 [facility] Comment on above: Result Comment: KDIG O guidelines provide the following GFR categories: Stage GFR(ml/min/1.73 m2) Terms G1 >=90 Normal or high G2 60-89 Mildly decreased* G3a 45-59 Mildly to moderately decreased G3b 30-44 Moderately to severely decreased G4 15-29 Severely decreased G5 <15 Kidney failure *Relative to young adult level. In the absence of evidence of kidney damage, neither GFR category G1 nor G2 fulfill the criteria for CKD. The CKD-EPI equation is validated in individuals 18 years of age and older. Currently the best equation for estimating glomerular filtration rate (GFR) from serum creatinine in children is the Bedside Robertson equation. It is less accurate in patients with extremes of muscle mass, restriction of dietary protein, ingestion of creatine, extra-renal metabolism of creatinine, or treatment with medications that affect renal tubular creatinine secretion. Performed By: #### B NP3, TROPN, BMP3, HEMDF #### [facility] [address] [place] [address] Urea nitrogen [Mass/Vol] 69 mg/dL High 7-17 [facility] Comment on above: Performed By: #### B NP3, TROPN, BMP3, HEMDF #### [facility] [address] [place] [address] Chloride [Moles/Vol] 98 mmol/L Normal 98-107 [facility] Comment on above: Performed By: #### B NP3, TROPN, BMP3, HEMDF #### [facility] [address] [place] [address] Potassium [Moles/Vol] 3.8 mmol/L Normal 3.5-5.1 [facility] Comment on above: Performed By: #### B NP3, TROPN, BMP3, HEMDF #### [facility] [address] [place] [address] Sodium [Moles/Vol] 138 mmol/L Normal 135-145 [facility] Comment on above: Performed By: #### B NP3, TROPN, BMP3, HEMDF #### [facility] [address] [place] [address] Glucose,Bedsideon 05-19-2021 Glucose [Mass/Vol] 124 mg/dL [facility] 70-100 [facility] Comment on above: Result Comment: Test performed by glucose meter. Results may be 10%-15% lower than serum/plasma values. (CLIA ID [id number]) Performed By: #### B GLU #### [facility] [address] [place] [address] Glucose [Mass/Vol] 126 mg/dL High 70-100 [facility] Comment on above: Result Comment: Test performed by glucose meter. Results may be 10%-15% lower than serum/plasma values. (CLIA ID [id number]) Performed By: #### B NP3, TROPN, BMP3, HEMDF #### [facility] [address] [place] [address] Glucose [Mass/Vol] 153 mg/dL [facility] 70-100 [facility] Comment on above: Result Comment: Test performed by glucose meter. Results may be 10%-15% lower than serum/plasma values. (CLIA ID [id number]) Performed By: #### L IPD2, BMP3, MG3 #### [facility] [address] [place] [address] Glucose [Mass/Vol] 87 mg/dL Normal 70-100 [facility] Comment on above: Result Comment: Test performed by glucose meter. Results may be 10%-15% lower than serum/plasma values. (CLIA ID [id number]) Performed By: #### B GLU #### [facility] [address] [place] [address] Hemogram w/ Autodiffon 05-19 Abs Baso Cnt 0.1 10*3/uL Normal 0.0-0.2 [facility] Comment on above: Performed By: #### B NP3, TROPN, BMP3, HEMDF #### [facility] [address] [place] [address] Abs Neutrophile Cnt 2.1 10*3/uL Normal 1.8-7.0 [facility] Comment on above: Performed By: #### B NP3, TROPN, BMP3, HEMDF #### [facility] [address] [place] [address] Basophils/100 WBC (Bld) 1.5 % Normal 0.0-2.0 [facility] Comment on above: Performed By: #### B NP3, TROPN, BMP3, HEMDF #### [facility] [address] [place] [address] Eosinophils (Bld) [#/Vol] 0.4 10*3/uL Normal 0.0-0.5 [facility] Comment on above: Performed By: #### B NP3, TROPN, BMP3, HEMDF #### [facility] [address] [place] [address] Eosinophils/100 WBC (Bld) 10.0 % High 1.0-6.0 [facility] Comment on above: Performed By: #### B NP3, TROPN, BMP3, HEMDF #### [facility] [address] [place] [address] Erythrocyte distribution width (RBC) [Ratio] 18.2 % High 11.5-14.5 [facility] Comment on above: Performed By: #### B NP3, TROPN, BMP3, HEMDF #### [facility] [address] [place] [address] Granulocytes/100 WBC (Bld) 54.0 % Normal 40.0-80.0 [facility] Comment on above: Performed By: #### B NP3, TROPN, BMP3, HEMDF #### [facility] [address] [place] [address] Hematocrit (Bld) [Volume fraction] 34.6 % Low 40.0-52.0 [facility] Comment on above: Performed By: #### B NP3, TROPN, BMP3, HEMDF #### [facility] [address] [place] [address] Hemoglobin (Bld) [Mass/Vol] 11.4 g/dL Low 13.0-18.0 [facility] Comment on above: Performed By: #### B NP3, TROPN, BMP3, HEMDF #### [facility] [address] [place] [address] Lymphocytes (Bld) [#/Vol] 0.9 10*3/uL Low 1.0-4.3 [facility] Comment on above: Performed By: #### B NP3, TROPN, BMP3, HEMDF #### [facility] [address] [place] [address] Lymphocytes/100 WBC (Bld) 23.0 % Normal 20.0-40.0 [facility] Comment on above: Performed By: #### B NP3, TROPN, BMP3, HEMDF #### [facility] [address] [place] [address] MCH (RBC) [Entitic mass] 29.5 pg Normal 26.0-34.0 [facility] Comment on above: Performed By: #### B NP3, TROPN, BMP3, HEMDF #### [facility] [address] [place] [address] MCHC 33.0 % Normal 32.0-36.0 [facility] Comment on above: Performed By: #### B NP3, TROPN, BMP3, HEMDF #### [facility] [address] [place] [address] MCV (RBC) [Entitic vol] 89.5 fL Normal 80.0-98.0 [facility] Comment on above: Performed By: #### B NP3, TROPN, BMP3, HEMDF #### [facility] [address] [place] [address] Monocytes (Bld) [#/Vol] 0.4 10*3/uL Normal 0.0-0.8 [facility] Comment on above: Performed By: #### B NP3, TROPN, BMP3, HEMDF #### [facility] [address] [place] [address] Monocytes/100 WBC (Bld) 11.5 % High 2.0-10.0 [facility] Comment on above: Performed By: #### B NP3, TROPN, BMP3, HEMDF #### [facility] [address] [place] [address] Platelet mean volume (Bld) [Entitic vol] 8.3 fL Normal 7.4-10.4 [facility] Comment on above: Performed By: #### B NP3, TROPN, BMP3, HEMDF #### [facility] [address] [place] [address] Platelets (Bld) [#/Vol] 192 10*3/uL Normal 140-440 [facility] Comment on above: Performed By: #### B NP3, TROPN, BMP3, HEMDF #### [facility] [address] [place] [address] RBC (Bld) [#/Vol] 3.87 10*6/uL Low 4.40-5.90 [facility] Comment on above: Performed By: #### B NP3, TROPN, BMP3, HEMDF #### [facility] [address] [place] [address] WBC (Bld) [#/Vol] 3.8 10*3/uL Normal 3.6-10.7 [facility] Comment on above: Performed By: #### B NP3, TROPN, BMP3, HEMDF #### [facility] [address] [place] [address] Magnesiumon 05-19-2021 Magnesium [Mass/Vol] 1.7 mg/dL Normal 1.6-2.3 [facility] Comment on above: Performed By: #### B NP3, TROPN, BMP3, HEMDF #### [facility] [address] [place] [address] NT pro BNPon 05-19-2021 Natriuretic peptide B (Bld) [Mass/Vol] 286[address] pg/mL High 0-450 [facility] Comment on above: Performed By: #### B NP3, TROPN, BMP3, HEMDF #### [facility] [address] [place] [address] Comp Metabolic Panelon 05-18 ALP [Catalytic activity/Vol] 111 U/L Normal 38-126 [facility] Comment on above: Performed By: #### L IPD2, BMP3, MG3 #### [facility] [address] [place] [address] ALT [Catalytic activity/Vol] 19 U/L Normal 0-49 [facility] Comment on above: Result Comment: The ALT test is performed by an updated assay method. Please note that the reference intervals have been changed and are now sex specific. Performed By: #### L IPD2, BMP3, MG3 #### [facility] [address] [place] [address] Anion gap [Moles/Vol] 9 mmol/L Normal 3-13 [facility] Comment on above: Performed By: #### L IPD2, BMP3, MG3 #### [facility] [address] [place] [address] AST [Catalytic activity/Vol] 45 U/L Normal 15-46 [facility] Comment on above: Performed By: #### L IPD2, BMP3, MG3 #### [facility] [address] [place] [address] Bilirubin [Mass/Vol] 1.2 mg/dL Normal 0.2-1.3 [facility] Comment on above: Performed By: #### L IPD2, BMP3, MG3 #### [facility] [address] [place] [address] Calcium [Mass/Vol] 8.8 mg/dL Normal 8.4-10.4 [facility] Comment on above: Performed By: #### L IPD2, BMP3, MG3 #### [facility] [address] [place] [address] CO2 [Moles/Vol] 29 mmol/L Normal 22-30 [facility] Comment on above: Performed By: #### L IPD2, BMP3, MG3 #### [facility] [address] [place] [address] Glucose [Mass/Vol] 100 mg/dL Normal 70-100 [facility] Comment on above: Performed By: #### L IPD2, BMP3, MG3 #### [facility] [address] [place] [address] Protein [Mass/Vol] 6.5 g/dL Normal 6.3-8.2 [facility] Comment on above: Performed By: #### L IPD2, BMP3, MG3 #### [facility] [address] [place] [address] Urea nitrogen [Mass/Vol] 65 mg/dL High 7-17 [facility] Comment on above: Performed By: #### L IPD2, BMP3, MG3 #### [facility] [address] [place] [address] Creatinine [Mass/Vol] 2.34 mg/dL High 0.52-1.25 [facility] Comment on above: Performed By: #### L IPD2, BMP3, MG3 #### [facility] [address] [place] [address] GFR/1.73 sq M.predicted among blacks MDRD (S/P/Bld) [Vol rate/Area] 28.9 mL/min/{1.73_m2} Abnormal >60 [facility] Comment on above: Performed By: #### L IPD2, BMP3, MG3 #### [facility] [address] [place] [address] GFR/1.73 sq M.predicted among non-blacks MDRD (S/P/Bld) [Vol rate/Area] 25.0 mL/min/{1.73_m2} Abnormal >60 [facility] Comment on above: Result Comment: KDIG O guidelines provide the following GFR categories: Stage GFR(ml/min/1.73 m2) Terms G1 >=90 Normal or high G2 60-89 Mildly decreased* G3a 45-59 Mildly to moderately decreased G3b 30-44 Moderately to severely decreased G4 15-29 Severely decreased G5 <15 Kidney failure *Relative to young adult level. In the absence of evidence of kidney damage, neither GFR category G1 nor G2 fulfill the criteria for CKD. The CKD-EPI equation is validated in individuals 18 years of age and older. Currently the best equation for estimating glomerular filtration rate (GFR) from serum creatinine in children is the Bedside Robertson equation. It is less accurate in patients with extremes of muscle mass, restriction of dietary protein, ingestion of creatine, extra-renal metabolism of creatinine, or treatment with medications that affect renal tubular creatinine secretion. Performed By: #### L IPD2, BMP3, MG3 #### [facility] [address] [place] [address] Albumin [Mass/Vol] 3.6 g/dL Normal 3.5-5.0 [facility] Comment on above: Performed By: #### L IPD2, BMP3, MG3 #### [facility] [address] [place] [address] Chloride [Moles/Vol] 101 mmol/L Normal 98-107 [facility] Comment on above: Performed By: #### L IPD2, BMP3, MG3 #### [facility] [address] [place] [address] Potassium [Moles/Vol] 3.7 mmol/L Normal 3.5-5.1 [facility] Comment on above: Performed By: #### L IPD2, BMP3, MG3 #### [facility] [address] [place] [address] Sodium [Moles/Vol] 140 mmol/L Normal 135-145 [facility] Comment on above: Performed By: #### L IPD2, BMP3, MG3 #### [facility] [address] [place] [address] Glucose,Bedsideon 05-18-2021 Glucose [Mass/Vol] 145 mg/dL [facility] [address] [facility] Comment on above: Result Comment: Test performed by glucose meter. Results may be 10%-15% lower than serum/plasma values. (CLIA ID [id number]) Performed By: #### L IPD2, BMP3, MG3 #### [facility] [address] [place] [address] Glucose [Mass/Vol] 116 mg/dL [address] [facility] Comment on above: Result Comment: Test performed by glucose meter. Results may be 10%-15% lower than serum/plasma values. (CLIA ID [id number]) Performed By: #### L IPD2, BMP3, MG3 #### [facility] [address] [place] [address] Glucose [Mass/Vol] 165 mg/dL [address] Comment on above: Result Comment: Test performed by glucose meter. Results may be 10%-15% lower than serum/plasma values. (CLIA ID [id number]) Performed By: #### B GLU #### [facility] [address] [place] [address] Glucose [Mass/Vol] 155 mg/dL [address] Comment on above: Result Comment: Test performed by glucose meter. Results may be 10%-15% lower than serum/plasma values. (CLIA ID [id number]) Performed By: #### T ROPN, LACT3 #### [facility] [address] [place] [address] Hemogram w/ Autodiffon 05-18 Abs Baso Cnt 0.1 10*3/uL Normal 0.0-0.2 [facility] Comment on above: Performed By: #### L IPD2, BMP3, MG3 #### [facility] [address] [place] [address] Abs Neutrophile Cnt 2.2 10*3/uL Normal 1.8-7.0 [facility] Comment on above: Performed By: #### L IPD2, BMP3, MG3 #### [facility] [address] [place] [address] Basophils/100 WBC (Bld) 1.4 % Normal 0.0-2.0 [facility] Comment on above: Performed By: #### L IPD2, BMP3, MG3 #### [facility] [address] [place] [address] Eosinophils (Bld) [#/Vol] 0.3 10*3/uL Normal 0.0-0.5 [facility] Comment on above: Performed By: #### L IPD2, BMP3, MG3 #### [facility] [address] [place] [address] Eosinophils/100 WBC (Bld) 7.3 % High 1.0-6.0 [facility] Comment on above: Performed By: #### L IPD2, BMP3, MG3 #### [facility] [address] [place] [address] Erythrocyte distribution width (RBC) [Ratio] 18.4 % High 11.5-14.5 [facility] Comment on above: Performed By: #### L IPD2, BMP3, MG3 #### [facility] [address] [place] [address] Granulocytes/100 WBC (Bld) 57.1 % Normal 40.0-80.0 [facility] Comment on above: Performed By: #### L IPD2, BMP3, MG3 #### [facility] [address] [place] [address] Hematocrit (Bld) [Volume fraction] 34.2 % Low 40.0-52.0 [facility] Comment on above: Performed By: #### L IPD2, BMP3, MG3 #### [facility] [address] [place] [address] Hemoglobin (Bld) [Mass/Vol] 10.9 g/dL Low 13.0-18.0 [facility] Comment on above: Performed By: #### L IPD2, BMP3, MG3 #### [facility] [address] [place] [address] Lymphocytes (Bld) [#/Vol] 0.8 10*3/uL Low 1.0-4.3 [facility] Comment on above: Performed By: #### L IPD2, BMP3, MG3 #### [facility] [address] [place] [address] Lymphocytes/100 WBC (Bld) 21.4 % Normal 20.0-40.0 [facility] Comment on above: Performed By: #### L IPD2, BMP3, MG3 #### [facility] [address] [place] [address] MCH (RBC) [Entitic mass] 29.6 pg Normal 26.0-34.0 [facility] Comment on above: Performed By: #### L IPD2, BMP3, MG3 #### [facility] [address] [place] [address] MCHC 31.8 % Low 32.0-36.0 [facility] Comment on above: Performed By: #### L IPD2, BMP3, MG3 #### [facility] [address] [place] [address] MCV (RBC) [Entitic vol] 92.9 fL Normal 80.0-98.0 [facility] Comment on above: Performed By: #### L IPD2, BMP3, MG3 #### [facility] [address] [place] [address] Monocytes (Bld) [#/Vol] 0.5 10*3/uL Normal 0.0-0.8 [facility] Comment on above: Performed By: #### L IPD2, BMP3, MG3 #### [facility] [address] [place] [address] Monocytes/100 WBC (Bld) 12.8 % High 2.0-10.0 [facility] Comment on above: Performed By: #### L IPD2, BMP3, MG3 #### [facility] [address] [place] [address] Platelet mean volume (Bld) [Entitic vol] 8.6 fL Normal 7.4-10.4 [facility] Comment on above: Performed By: #### L IPD2, BMP3, MG3 #### [facility] [address] [place] [address] Platelets (Bld) [#/Vol] 189 10*3/uL Normal 140-440 [facility] Comment on above: Performed By: #### L IPD2, BMP3, MG3 #### [facility] [address] [place] [address] RBC (Bld) [#/Vol] 3.68 10*6/uL Low 4.40-5.90 [facility] Comment on above: Performed By: #### L IPD2, BMP3, MG3 #### [facility] [address] [place] [address] WBC (Bld) [#/Vol] 3.8 10*3/uL Normal 3.6-10.7 [facility] Comment on above: Performed By: #### L IPD2, BMP3, MG3 #### [facility] [address] [place] [address] Magnesiumon 05-18-2021 Magnesium [Mass/Vol] 1.6 mg/dL Normal 1.6-2.3 [facility] Comment on above: Performed By: #### L IPD2, BMP3, MG3 #### [facility] [address] [place] [address] Comp Metabolic Panelon 05-17 ALP [Catalytic activity/Vol] 103 U/L Normal 38-126 [facility] Comment on above: Performed By: #### B NP3, TROPN, BMP3, HEMDF #### [facility] [address] [place] [address] ALT [Catalytic activity/Vol] 18 U/L Normal 0-49 [facility] Comment on above: Result Comment: The ALT test is performed by an updated assay method. Please note that the reference intervals have been changed and are now sex specific. Performed By: #### B NP3, TROPN, BMP3, HEMDF #### [facility] [address] [place] [address] Calcium [Mass/Vol] 9.0 mg/dL Normal 8.4-10.4 [facility] Comment on above: Performed By: #### B NP3, TROPN, BMP3, HEMDF #### [facility] [address] [place] [address] Glucose [Mass/Vol] 105 mg/dL High 70-100 [facility] Comment on above: Performed By: #### B NP3, TROPN, BMP3, HEMDF #### [facility] [address] [place] [address] Urea nitrogen [Mass/Vol] 68 mg/dL High 7-17 [facility] Comment on above: Performed By: #### B NP3, TROPN, BMP3, HEMDF #### [facility] [address] [place] [address] Anion gap [Moles/Vol] 8 mmol/L Normal 3-13 [facility] Comment on above: Performed By: #### B NP3, TROPN, BMP3, HEMDF #### [facility] [address] [place] [address] AST [Catalytic activity/Vol] 44 U/L Normal 15-46 [facility] Comment on above: Performed By: #### B NP3, TROPN, BMP3, HEMDF #### [facility] [address] [place] [address] Bilirubin [Mass/Vol] 1.1 mg/dL Normal 0.2-1.3 [facility] Comment on above: Performed By: #### B NP3, TROPN, BMP3, HEMDF #### [facility] [address] [place] [address] CO2 [Moles/Vol] 29 mmol/L Normal 22-30 [facility] Comment on above: Performed By: #### B NP3, TROPN, BMP3, HEMDF #### [facility] [address] [place] [address] Creatinine [Mass/Vol] 2.50 mg/dL High 0.52-1.25 [facility] Comment on above: Performed By: #### B NP3, TROPN, BMP3, HEMDF #### [facility] [address] [place] [address] GFR/1.73 sq M.predicted among blacks MDRD (S/P/Bld) [Vol rate/Area] 26.7 mL/min/{1.73_m2} Abnormal >60 [facility] Comment on above: Performed By: #### B NP3, TROPN, BMP3, HEMDF #### [facility] [address] [place] [address] GFR/1.73 sq M.predicted among non-blacks MDRD (S/P/Bld) [Vol rate/Area] 23.1 mL/min/{1.73_m2} Abnormal >60 [facility] Comment on above: Result Comment: KDIG O guidelines provide the following GFR categories: Stage GFR(ml/min/1.73 m2) Terms G1 >=90 Normal or high G2 60-89 Mildly decreased* G3a 45-59 Mildly to moderately decreased G3b 30-44 Moderately to severely decreased G4 15-29 Severely decreased G5 <15 Kidney failure *Relative to young adult level. In the absence of evidence of kidney damage, neither GFR category G1 nor G2 fulfill the criteria for CKD. The CKD-EPI equation is validated in individuals 18 years of age and older. Currently the best equation for estimating glomerular filtration rate (GFR) from serum creatinine in children is the Bedside Robertson equation. It is less accurate in patients with extremes of muscle mass, restriction of dietary protein, ingestion of creatine, extra-renal metabolism of creatinine, or treatment with medications that affect renal tubular creatinine secretion. Performed By: #### B NP3, TROPN, BMP3, HEMDF #### [facility] [address] [place] [address] Protein [Mass/Vol] 6.3 g/dL Normal 6.3-8.2 [facility] Comment on above: Performed By: #### B NP3, TROPN, BMP3, HEMDF #### [facility] [address] [place] [address] Chloride [Moles/Vol] 101 mmol/L Normal 98-107 [facility] Comment on above: Performed By: #### B NP3, TROPN, BMP3, HEMDF #### [facility] [address] [place] [address] Potassium [Moles/Vol] 4.0 mmol/L Normal 3.5-5.1 [facility] Comment on above: Performed By: #### B NP3, TROPN, BMP3, HEMDF #### [facility] [address] [place] [address] Sodium [Moles/Vol] 138 mmol/L Normal 135-145 [facility] Comment on above: Performed By: #### B NP3, TROPN, BMP3, HEMDF #### [facility] [address] [place] [address] Albumin [Mass/Vol] 3.4 g/dL Low 3.5-5.0 [facility] Comment on above: Performed By: #### B NP3, TROPN, BMP3, HEMDF #### [facility] [address] [place] [address] Glucose,Bedsideon 05-17-2021 Glucose [Mass/Vol] 157 mg/dL High 70-100 [facility] Comment on above: Result Comment: Test performed by glucose meter. Results may be 10%-15% lower than serum/plasma values. (CLIA ID [id number]) Performed By: #### T ROPN, LACT3 #### [facility] [address] [place] [address] Glucose [Mass/Vol] 103 mg/dL High 70-100 [facility] Comment on above: Result Comment: Test performed by glucose meter. Results may be 10%-15% lower than serum/plasma values. (CLIA ID [id number]) Performed By: #### B GLU #### [facility] [address] [place] [address] Glucose [Mass/Vol] 124 mg/dL High 70-100 [facility] Comment on above: Result Comment: Test performed by glucose meter. Results may be 10%-15% lower than serum/plasma values. (CLIA ID [id number]) Performed By: #### L IPD2, BMP3, MG3 #### [facility] [address] [place] [address] Glucose [Mass/Vol] 112 mg/dL High 70-100 [facility] Comment on above: Result Comment: Test performed by glucose meter. Results may be 10%-15% lower than serum/plasma values. (CLIA ID [id number]) Performed By: #### B NP3, TROPN, BMP3, HEMDF #### [facility] [address] [place] [address] Hemogram w/ Autodiffon 05-17 Erythrocyte distribution width (RBC) [Ratio] 18.7 % High 11.5-14.5 [facility] Comment on above: Performed By: #### B NP3, TROPN, BMP3, HEMDF #### [facility] [address] [place] [address] Hematocrit (Bld) [Volume fraction] 33.4 % Low 40.0-52.0 [facility] Comment on above: Performed By: #### B NP3, TROPN, BMP3, HEMDF #### [facility] [address] [place] [address] Hemoglobin (Bld) [Mass/Vol] 10.8 g/dL Low 13.0-18.0 [facility] Comment on above: Performed By: #### B NP3, TROPN, BMP3, HEMDF #### [facility] [address] [place] [address] MCH (RBC) [Entitic mass] 29.8 pg Normal 26.0-34.0 [facility] Comment on above: Performed By: #### B NP3, TROPN, BMP3, HEMDF #### [facility] [address] [place] [address] MCHC 32.5 % Normal 32.0-36.0 [facility] Comment on above: Performed By: #### B NP3, TROPN, BMP3, HEMDF #### [facility] [address] [place] [address] MCV (RBC) [Entitic vol] 91.7 fL Normal 80.0-98.0 [facility] Comment on above: Performed By: #### B NP3, TROPN, BMP3, HEMDF #### [facility] [address] [place] [address] Platelet mean volume (Bld) [Entitic vol] 9.1 fL Normal 7.4-10.4 [facility] Comment on above: Performed By: #### B NP3, TROPN, BMP3, HEMDF #### [facility] [address] [place] [address] Platelets (Bld) [#/Vol] 206 10*3/uL Normal 140-440 [facility] Comment on above: Performed By: #### B NP3, TROPN, BMP3, HEMDF #### [facility] [address] [place] [address] RBC (Bld) [#/Vol] 3.64 10*6/uL Low 4.40-5.90 [facility] Comment on above: Performed By: #### B NP3, TROPN, BMP3, HEMDF #### [facility] [address] [place] [address] WBC (Bld) [#/Vol] 4.0 10*3/uL Normal 3.6-10.7 [facility] Comment on above: Performed By: #### B NP3, TROPN, BMP3, HEMDF #### [facility] [address] [place] [address] Magnesiumon 05-17-2021 Magnesium [Mass/Vol] 1.7 mg/dL Normal 1.6-2.3 [facility] Comment on above: Performed By: #### B NP3, TROPN, BMP3, HEMDF #### [facility] [address] [place] [address] Manual Diffon 05-17-2021 Abs Baso Cnt 0.1 10*3/uL Normal 0.0-0.2 [facility] Comment on above: Performed By: #### B NP3, TROPN, BMP3, HEMDF #### [facility] [address] [place] [address] Abs Eosin Cnt 0.2 10*3/uL Normal 0.0-0.5 [facility] Comment on above: Performed By: #### B NP3, TROPN, BMP3, HEMDF #### [facility] [address] [place] [address] Abs Lymph Cnt 0.7 10*3/uL Low 1.1-4.5 [facility] Comment on above: Performed By: #### B NP3, TROPN, BMP3, HEMDF #### [facility] [address] [place] [address] Abs Monocyte Cnt 0.1 10*3/uL Low 0.2-1.1 [facility] Comment on above: Performed By: #### B NP3, TROPN, BMP3, HEMDF #### [facility] [address] [place] [address] Abs Neutrophile Cnt 2.9 10*3/uL Normal 2.2-8.2 [facility] Comment on above: Performed By: #### B NP3, TROPN, BMP3, HEMDF #### [facility] [address] [place] [address] Acanthocytes Slight Normal [facility] Comment on above: Performed By: #### B NP3, TROPN, BMP3, HEMDF #### [facility] [address] [place] [address] Anisocytosis Slight Normal [facility] Comment on above: Performed By: #### B NP3, TROPN, BMP3, HEMDF #### [facility] [address] [place] [address] Bands 0 % Normal 0-3 [facility] Comment on above: Performed By: #### B NP3, TROPN, BMP3, HEMDF #### [facility] [address] [place] [address] Basophils 3 % High 0-2 [facility] Comment on above: Performed By: #### B NP3, TROPN, BMP3, HEMDF #### [facility] [address] [place] [address] Pawlet Cells Slight Normal [facility] Comment on above: Performed By: #### B NP3, TROPN, BMP3, HEMDF #### [facility] [address] [place] [address] Cells counted [address] [facility] Comment on above: Performed By: #### B NP3, TROPN, BMP3, HEMDF #### [facility] [address] [place] [address] Eosinophils 5 % Normal 1-6 [facility] Comment on above: Performed By: #### B NP3, TROPN, BMP3, HEMDF #### [facility] [address] [place] [address] Hypochromia Slight Normal [facility] Comment on above: Performed By: #### B NP3, TROPN, BMP3, HEMDF #### [facility] [address] [place] [address] Lymphocytes 17 % Low 20-40 [facility] Comment on above: Performed By: #### B NP3, TROPN, BMP3, HEMDF #### [facility] [address] [place] [address] Monocytes 3 % Normal 2-10 [facility] Comment on above: Performed By: #### B NP3, TROPN, BMP3, HEMDF #### [facility] [address] [place] [address] Ovalocytes Slight Normal [facility] Comment on above: Performed By: #### B NP3, TROPN, BMP3, HEMDF #### [facility] [address] [place] [address] Poikilocytosis Slight Normal [facility] Comment on above: Performed By: #### B NP3, TROPN, BMP3, HEMDF #### [facility] [address] [place] [address] Polychromasia Slight Normal [facility] Comment on above: Performed By: #### B NP3, TROPN, BMP3, HEMDF #### [facility] [address] [place] [address] RBC Morphology ABNORMAL Normal [facility] Comment on above: Performed By: #### B NP3, TROPN, BMP3, HEMDF #### [facility] [address] [place] [address] Seg Neutrophils 72 % Normal 40-80 [facility] Comment on above: Performed By: #### B NP3, TROPN, BMP3, HEMDF #### [facility] [address] [place] [address] Tear Drop Forms Slight Normal [facility] Comment on above: Performed By: #### B NP3, TROPN, BMP3, HEMDF #### [facility] [address] [place] [address] Basic Metabolic Panelon 10-2 Calcium [Mass/Vol] 9.8 mg/dL Normal 8.4-10.4 [facility] Comment on above: Performed By: #### T CHELEN, LACT3 #### [facility] [address] [place] [address] Anion gap [Moles/Vol] 12 mmol/L Normal 3-13 [facility] Comment on above: Performed By: #### T ROPN, LACT3 #### [facility] [address] [place] [address] CO2 [Moles/Vol] 27 mmol/L Normal 22-30 [facility] Comment on above: Performed By: #### T CHELEN, LACT3 #### [facility] [address] [place] [address] Creatinine [Mass/Vol] 2.67 mg/dL High 0.52-1.25 [facility] Comment on above: Performed By: #### T CHELEN, LACT3 #### [facility] [address] [place] [address] GFR/1.73 sq M.predicted among blacks MDRD (S/P/Bld) [Vol rate/Area] 24.7 mL/min/{1.73_m2} Abnormal >60 [facility] Comment on above: Performed By: #### T ROPN, LACT3 #### [facility] [address] [place] [address] GFR/1.73 sq M.predicted among non-blacks MDRD (S/P/Bld) [Vol rate/Area] 21.3 mL/min/{1.73_m2} Abnormal >60 [facility] Comment on above: Result Comment: KDIG O guidelines provide the following GFR categories: Stage GFR(ml/min/1.73 m2) Terms G1 >=90 Normal or high G2 60-89 Mildly decreased* G3a 45-59 Mildly to moderately decreased G3b 30-44 Moderately to severely decreased G4 15-29 Severely decreased G5 <15 Kidney failure *Relative to young adult level. In the absence of evidence of kidney damage, neither GFR category G1 nor G2 fulfill the criteria for CKD. The CKD-EPI equation is validated in individuals 18 years of age and older. Currently the best equation for estimating glomerular filtration rate (GFR) from serum creatinine in children is the Bedside Robertson equation. It is less accurate in patients with extremes of muscle mass, restriction of dietary protein, ingestion of creatine, extra-renal metabolism of creatinine, or treatment with medications that affect renal tubular creatinine secretion. Performed By: #### T CASSY LACT3 #### [facility] [address] [place] [address] Glucose [Mass/Vol] 91 mg/dL Normal 70-100 [facility] Comment on above: Performed By: #### T CASSY, LACT3 #### [facility] [address] [place] [address] Urea nitrogen [Mass/Vol] 70 mg/dL High 7-17 [facility] Comment on above: Performed By: #### T CASSY, LACT3 #### [facility] [address] [place] [address] Chloride [Moles/Vol] 102 mmol/L Normal 98-107 [facility] Comment on above: Performed By: #### T CASSY LACT3 #### [facility] [address] [place] [address] Potassium [Moles/Vol] 4.4 mmol/L Normal 3.5-5.1 [facility] Comment on above: Performed By: #### T CASSY, LACT3 #### [facility] [address] [place] [address] Sodium [Moles/Vol] 140 mmol/L Normal 135-145 [facility] Comment on above: Performed By: #### T CASSY LACT3 #### [facility] [address] [place] [address] Glucose,Bedsideon 05-16-2021 Glucose [Mass/Vol] 88 mg/dL Normal 70-100 [facility] Comment on above: Result Comment: Test performed by glucose meter. Results may be 10%-15% lower than serum/plasma values. (CLIA ID [id number]) Performed By: #### B GLU #### [facility] [address] [place] [address] Glucose [Mass/Vol] 145 mg/dL High 70-100 [facility] Comment on above: Result Comment: Test performed by glucose meter. Results may be 10%-15% lower than serum/plasma values. (CLIA ID [id number]) Performed By: #### Larissa MADERA LACT3 #### [facility] [address] [place] [address] Glucose [Mass/Vol] 83 mg/dL Normal 70-100 [facility] Comment on above: Result Comment: Test performed by glucose meter. Results may be 10%-15% lower than serum/plasma values. (CLIA ID [id number]) Performed By: #### Larissa MADERA LACT3 #### [facility] [address] [place] [address] Hemogram w/ Autodiffon 05-16 Abs Baso Cnt 0.1 10*3/uL Normal 0.0-0.2 [facility] Comment on above: Performed By: #### Larissa MADERA LACT3 #### [facility] [address] [place] [address] Abs Neutrophile Cnt 2.6 10*3/uL Normal 1.8-7.0 [facility] Comment on above: Performed By: #### Larissa MADERA LACT3 #### [facility] [address] [place] [address] Basophils/100 WBC (Bld) 1.8 % Normal 0.0-2.0 [facility] Comment on above: Performed By: #### Larissa MADERA LACT3 #### [facility] [address] [place] [address] Eosinophils (Bld) [#/Vol] 0.3 10*3/uL Normal 0.0-0.5 [facility] Comment on above: Performed By: #### Larissa MADERA LACT3 #### [facility] [address] [place] [address] Eosinophils/100 WBC (Bld) 6.2 % High 1.0-6.0 [facility] Comment on above: Performed By: #### Larissa MADERA LACT3 #### [facility] [address] [place] [address] Erythrocyte distribution width (RBC) [Ratio] 18.8 % High 11.5-14.5 [facility] Comment on above: Performed By: #### T CASSY LACT3 #### [facility] [address] [place] [address] Granulocytes/100 WBC (Bld) 62.7 % Normal 40.0-80.0 [facility] Comment on above: Performed By: #### T CASSY, LACT3 #### [facility] [address] [place] [address] Hematocrit (Bld) [Volume fraction] 38.4 % Low 40.0-52.0 [facility] Comment on above: Performed By: #### Larissa MADERA LACT3 #### [facility] [address] [place] [address] Hemoglobin (Bld) [Mass/Vol] 12.7 g/dL Low 13.0-18.0 [facility] Comment on above: Performed By: #### Larissa MADERA LACT3 #### [facility] [address] [place] [address] Lymphocytes (Bld) [#/Vol] 0.7 10*3/uL Low 1.0-4.3 [facility] Comment on above: Performed By: #### Larissa MADERA LACT3 #### [facility] [address] [place] [address] Lymphocytes/100 WBC (Bld) 17.9 % Low 20.0-40.0 [facility] Comment on above: Performed By: #### T CASSY LACT3 #### [facility] [address] [place] [address] MCH (RBC) [Entitic mass] 30.3 pg Normal 26.0-34.0 [facility] Comment on above: Performed By: #### T CASSY LACT3 #### [facility] [address] [place] [address] MCHC 33.1 % Normal 32.0-36.0 [facility] Comment on above: Performed By: #### T CASSY, LACT3 #### [facility] [address] [place] [address] MCV (RBC) [Entitic vol] 91.5 fL Normal 80.0-98.0 [facility] Comment on above: Performed By: #### Larissa MADERA, LACT3 #### [facility] [address] [place] [address] Monocytes (Bld) [#/Vol] 0.5 10*3/uL Normal 0.0-0.8 [facility] Comment on above: Performed By: #### Larissa MADERA LACT3 #### [facility] [address] [place] [address] Monocytes/100 WBC (Bld) 11.4 % High 2.0-10.0 [facility] Comment on above: Performed By: #### Larissa MADERA LACT3 #### [facility] [address] [place] [address] Platelet mean volume (Bld) [Entitic vol] 8.6 fL Normal 7.4-10.4 [facility] Comment on above: Performed By: #### Larissa MADERA LACT3 #### [facility] [address] [place] [address] Platelets (Bld) [#/Vol] 204 10*3/uL Normal 140-440 [facility] Comment on above: Performed By: #### Larissa MADERA LACT3 #### [facility] [address] [place] [address] RBC (Bld) [#/Vol] 4.20 10*6/uL Low 4.40-5.90 [facility] Comment on above: Performed By: #### Larissa MADERA LACT3 #### [facility] [address] [place] [address] WBC (Bld) [#/Vol] 4.2 10*3/uL Normal 3.6-10.7 [facility] Comment on above: Performed By: #### Larissa MADERA LACT3 #### [facility] [address] [place] [address] Magnesiumon 05-16-2021 Magnesium [Mass/Vol] 1.7 mg/dL Normal 1.6-2.3 [facility] Comment on above: Performed By: #### Larissa MADERA LACT3 #### [facility] [address] [place] [address] NT pro BNPon 05-16-2021 Natriuretic peptide B (Bld) [Mass/Vol] 88605 pg/mL High 0-450 [facility] Comment on above: Performed By: #### T ROPN, LACT3 #### [facility] [address] [place] [address] Basic Metabolic Panelon 04-21 Calcium [Mass/Vol] 9.7 mg/dL Normal 8.4-10.4 [facility] Comment on above: Performed By: #### B GLU #### [facility] [address] [place] [address] Glucose [Mass/Vol] 84 mg/dL Normal 70-100 [facility] Comment on above: Performed By: #### B GLU #### [facility] [address] [place] [address] Urea nitrogen [Mass/Vol] 67 mg/dL High 7-17 [facility] Comment on above: Performed By: #### B GLU #### [facility] [address] [place] [address] Anion gap [Moles/Vol] 15 mmol/L High 3-13 [facility] Comment on above: Performed By: #### B GLU #### [facility] [address] [place] [address] CO2 [Moles/Vol] 25 mmol/L Normal 22-30 [facility] Comment on above: Performed By: #### B GLU #### [facility] [address] [place] [address] Creatinine [Mass/Vol] 2.84 mg/dL High 0.52-1.25 [facility] Comment on above: Performed By: #### B GLU #### [facility] [address] [place] [address] GFR/1.73 sq M.predicted among blacks MDRD (S/P/Bld) [Vol rate/Area] 22.9 mL/min/{1.73_m2} Abnormal >60 [facility] Comment on above: Performed By: #### B GLU #### [facility] [address] [place] [address] GFR/1.73 sq M.predicted among non-blacks MDRD (S/P/Bld) [Vol rate/Area] 19.8 mL/min/{1.73_m2} Abnormal >60 [facility] Comment on above: Result Comment: KDIG O guidelines provide the following GFR categories: Stage GFR(ml/min/1.73 m2) Terms G1 >=90 Normal or high G2 60-89 Mildly decreased* G3a 45-59 Mildly to moderately decreased G3b 30-44 Moderately to severely decreased G4 15-29 Severely decreased G5 <15 Kidney failure *Relative to young adult level. In the absence of evidence of kidney damage, neither GFR category G1 nor G2 fulfill the criteria for CKD. The CKD-EPI equation is validated in individuals 18 years of age and older. Currently the best equation for estimating glomerular filtration rate (GFR) from serum creatinine in children is the Bedside Robertson equation. It is less accurate in patients with extremes of muscle mass, restriction of dietary protein, ingestion of creatine, extra-renal metabolism of creatinine, or treatment with medications that affect renal tubular creatinine secretion. Performed By: #### B GLU #### [facility] [address] [place] [address] Potassium [Moles/Vol] 4.6 mmol/L Normal 3.5-5.1 [facility] Comment on above: Performed By: #### B GLU #### [facility] [address] [facility] [place] [address] Chloride [Moles/Vol] 99 mmol/L Normal 98-107 [facility] Comment on above: Performed By: #### B GLU #### [facility] [address] [facility] [place] [address] Sodium [Moles/Vol] 139 mmol/L Normal 135-145 [facility] Comment on above: Performed By: #### B GLU #### [facility] [address] [place] [address] Glucose,Bedsideon 05-15-2021 Glucose [Mass/Vol] 81 mg/dL Normal 70-100 [facility] Comment on above: Result Comment: Test performed by glucose meter. Results may be 10%-15% lower than serum/plasma values. (CLIA ID [id number]) Performed By: #### B GLU #### [facility] [address] [place] [address] Glucose [Mass/Vol] 83 mg/dL Normal 70-100 [facility] Comment on above: Result Comment: Test performed by glucose meter. Results may be 10%-15% lower than serum/plasma values. (CLIA ID [id number]) Performed By: #### L IPD2, BMP3, MG3 #### [facility] [address] [place] [address] Glucose [Mass/Vol] 88 mg/dL Normal 70-100 [facility] Comment on above: Result Comment: Test performed by glucose meter. Results may be 10%-15% lower than serum/plasma values. (CLIA ID [id number]) Performed By: #### T ROPN, LACT3 #### [facility] [address] [place] [address] Glucose [Mass/Vol] 70 mg/dL Normal 70-100 [facility] Comment on above: Result Comment: Test performed by glucose meter. Results may be 10%-15% lower than serum/plasma values. (CLIA ID [id number]) Performed By: #### T ROPN, LACT3 #### [facility] [address] [place] [address] Hemogram w/ Autodiffon 05-15 Abs Baso Cnt 0.1 10*3/uL Normal 0.0-0.2 [facility] Comment on above: Performed By: #### B GLU #### [facility] [address] [place] [address] Abs Neutrophile Cnt 2.7 10*3/uL Normal 1.8-7.0 [facility] Comment on above: Performed By: #### B GLU #### [facility] [address] [place] [address] Basophils/100 WBC (Bld) 1.7 % Normal 0.0-2.0 [facility] Comment on above: Performed By: #### B GLU #### [facility] [address] [place] [address] Eosinophils (Bld) [#/Vol] 0.2 10*3/uL Normal 0.0-0.5 [facility] Comment on above: Performed By: #### B GLU #### [facility] [address] [place] [address] Eosinophils/100 WBC (Bld) 3.5 % Normal 1.0-6.0 [facility] Comment on above: Performed By: #### B GLU #### [facility] [address] [place] [address] Erythrocyte distribution width (RBC) [Ratio] 18.8 % High 11.5-14.5 [facility] Comment on above: Performed By: #### B GLU #### [facility] [address] [place] [address] Granulocytes/100 WBC (Bld) 59.1 % Normal 40.0-80.0 [facility] Comment on above: Performed By: #### B GLU #### [facility] [address] [place] [address] Hematocrit (Bld) [Volume fraction] 40.7 % Normal 40.0-52.0 [facility] Comment on above: Performed By: #### B GLU #### [facility] [address] [place] [place] [address] Hemoglobin (Bld) [Mass/Vol] 13.0 g/dL Normal 13.0-18.0 [facility] Comment on above: Performed By: #### B GLU #### [facility] [address] [place] [address] Lymphocytes (Bld) [#/Vol] 1.0 10*3/uL Normal 1.0-4.3 [facility] Comment on above: Performed By: #### B GLU #### [facility] [address] [place] [address] Lymphocytes/100 WBC (Bld) 21.9 % Normal 20.0-40.0 [facility] Comment on above: Performed By: #### B GLU #### [facility] [address] [place] [address] MCH (RBC) [Entitic mass] 29.8 pg Normal 26.0-34.0 [facility] Comment on above: Performed By: #### B GLU #### [facility] [address] [place] [address] MCHC 31.9 % Low 32.0-36.0 [facility] Comment on above: Performed By: #### B GLU #### [facility] [address] [place] [address] MCV (RBC) [Entitic vol] 93.2 fL Normal 80.0-98.0 [facility] Comment on above: Performed By: #### B GLU #### [facility] [address] [place] [address] Monocytes (Bld) [#/Vol] 0.6 10*3/uL Normal 0.0-0.8 [facility] Comment on above: Performed By: #### B GLU #### [facility] [address] [place] [address] Monocytes/100 WBC (Bld) 13.8 % High 2.0-10.0 [facility] Comment on above: Performed By: #### B GLU #### [facility] [address] [place] [address] Platelet mean volume (Bld) [Entitic vol] 8.7 fL Normal 7.4-10.4 [facility] Comment on above: Performed By: #### B GLU #### [facility] [address] [place] [address] Platelets (Bld) [#/Vol] 227 10*3/uL Normal 140-440 [facility] Comment on above: Performed By: #### B GLU #### [facility] [address] [place] [address] RBC (Bld) [#/Vol] 4.37 10*6/uL Low 4.40-5.90 [facility] Comment on above: Performed By: #### B GLU #### [facility] [address] [place] [address] WBC (Bld) [#/Vol] 4.6 10*3/uL Normal 3.6-10.7 [facility] Comment on above: Performed By: #### B GLU #### [facility] [address] [place] [address] Magnesiumon 05-15-2021 Magnesium [Mass/Vol] 1.6 mg/dL Normal 1.6-2.3 [facility] Comment on above: Performed By: #### B GLU #### [facility] [address] [place] [address] Basic Metabolic Panelon 10-2 Calcium [Mass/Vol] 9.7 mg/dL Normal 8.4-10.4 [facility] Comment on above: Performed By: #### L IPD2, BMP3, MG3 #### [facility] [address] [place] [address] Glucose [Mass/Vol] 111 mg/dL High 70-100 [facility] Comment on above: Performed By: #### L IPD2, BMP3, MG3 #### [facility] [address] [place] [address] Urea nitrogen [Mass/Vol] 64 mg/dL High 7-17 [facility] Comment on above: Performed By: #### L IPD2, BMP3, MG3 #### [facility] [address] [place] [address] Anion gap [Moles/Vol] 14 mmol/L High 3-13 [facility] Comment on above: Performed By: #### L IPD2, BMP3, MG3 #### [facility] [address] [place] [address] CO2 [Moles/Vol] 25 mmol/L Normal 22-30 [facility] Comment on above: Performed By: #### L IPD2, BMP3, MG3 #### [facility] [address] [place] [address] Creatinine [Mass/Vol] 2.95 mg/dL High 0.52-1.25 [facility] Comment on above: Performed By: #### L IPD2, BMP3, MG3 #### [facility] [address] [place] [address] GFR/1.73 sq M.predicted among blacks MDRD (S/P/Bld) [Vol rate/Area] 21.9 mL/min/{1.73_m2} Abnormal >60 [facility] Comment on above: Performed By: #### L IPD2, BMP3, MG3 #### [facility] [address] [place] [address] GFR/1.73 sq M.predicted among non-blacks MDRD (S/P/Bld) [Vol rate/Area] 18.9 mL/min/{1.73_m2} Abnormal >60 [facility] Comment on above: Result Comment: KDIG O guidelines provide the following GFR categories: Stage GFR(ml/min/1.73 m2) Terms G1 >=90 Normal or high G2 60-89 Mildly decreased* G3a 45-59 Mildly to moderately decreased G3b 30-44 Moderately to severely decreased G4 15-29 Severely decreased G5 <15 Kidney failure *Relative to young adult level. In the absence of evidence of kidney damage, neither GFR category G1 nor G2 fulfill the criteria for CKD. The CKD-EPI equation is validated in individuals 18 years of age and older. Currently the best equation for estimating glomerular filtration rate (GFR) from serum creatinine in children is the Bedside Robertson equation. It is less accurate in patients with extremes of muscle mass, restriction of dietary protein, ingestion of creatine, extra-renal metabolism of creatinine, or treatment with medications that affect renal tubular creatinine secretion. Performed By: #### L IPD2, BMP3, MG3 #### [facility] [address] [place] [address] Potassium [Moles/Vol] 4.1 mmol/L Normal 3.5-5.1 [facility] Comment on above: Performed By: #### L IPD2, BMP3, MG3 #### [facility] [address] [place] [address] Chloride [Moles/Vol] 103 mmol/L Normal 98-107 [facility] Comment on above: Performed By: #### L IPD2, BMP3, MG3 #### [facility] [address] [place], [place] [address] Sodium [Moles/Vol] 142 mmol/L Normal 135-145 [facility] Comment on above: Performed By: #### L IPD2, BMP3, MG3 #### [facility] [address] [place] [address] Glucose,Bedsideon 05-14-2021 Glucose [Mass/Vol] 115 mg/dL High 70-100 [facility] Comment on above: Result Comment: Test performed by glucose meter. Results may be 10%-15% lower than serum/plasma values. (CLIA ID [id number]) Performed By: #### B GLU #### [facility] [address] [place] [address] Glucose [Mass/Vol] 93 mg/dL Normal 70-100 [facility] Comment on above: Result Comment: Test performed by glucose meter. Results may be 10%-15% lower than serum/plasma values. (CLIA ID [id number]) Performed By: #### L IPD2, BMP3, MG3 #### [facility] [address] [place] [address] Glucose [Mass/Vol] 141 mg/dL High 70-100 [facility] Comment on above: Result Comment: Test performed by glucose meter. Results may be 10%-15% lower than serum/plasma values. (CLIA ID [id number]) Performed By: #### B GLU #### [facility] [address] [place] [address] Glucose [Mass/Vol] 114 mg/dL High 70-100 [facility] Comment on above: Result Comment: Test performed by glucose meter. Results may be 10%-15% lower than serum/plasma values. (CLIA ID [id number]) Performed By: #### B GLU #### [facility] [address] [place] [address] Glucose [Mass/Vol] 96 mg/dL Normal 70-100 [facility] Comment on above: Result Comment: Test performed by glucose meter. Results may be 10%-15% lower than serum/plasma values. (CLIA ID [id number]) Performed By: #### B NP3, TROPN, BMP3, HEMDF #### [facility] [address] [place] [address] Glucose [Mass/Vol] 62 mg/dL Low 70-100 [facility] Comment on above: Result Comment: Test performed by glucose meter. Results may be 10%-15% lower than serum/plasma values. (CLIA ID [id number]) Performed By: #### L IPD2, BMP3, MG3 #### [facility] [address] [place] [address] Lipid Panelon 05-14-2021 Chol/HDL 5 Normal [facility] Comment on above: Result Comment: Ref Range: < 3 Low Risk for CHD 3-6 Mod Risk for CHD > 6 High Risk for CHD Performed By: #### L IPD2, BMP3, MG3 #### [facility] [address] [place] [address] Cholesterol in HDL [Mass/Vol] 34 mg/dL Low 40-60 [facility] Comment on above: Performed By: #### L IPD2, BMP3, MG3 #### [facility] [address] [place] [address] Low Density Lipoprotein 110 mg/dL Abnormal <100 [facility] Comment on above: Performed By: #### L IPD2, BMP3, MG3 #### [facility] [address] [place] [address] Triglyceride [Mass/Vol] 109 mg/dL Normal <150 [facility] Comment on above: Performed By: #### L IPD2, BMP3, MG3 #### [facility] [address] [place] [address] Cholesterol [Mass/Vol] 166 mg/dL Normal < 200 [facility] Comment on above: Performed By: #### L IPD2, BMP3, MG3 #### [facility] [address] [place] [address] Magnesiumon 05-14-2021 Magnesium [Mass/Vol] 1.5 mg/dL Low 1.6-2.3 [facility] Comment on above: Performed By: #### L IPD2, BMP3, MG3 #### [facility] [address] [place] [address] Troponin Ion 05-14-2021 Troponin I.cardiac [Mass/Vol] 0.029 ng/mL Normal 0.000-0.034 [facility] Comment on above: Result Comment: . Performed By: #### B GLU #### [facility] [address] [place] [address] Troponin I.cardiac [Mass/Vol] 0.029 ng/mL Normal 0.000-0.034 [facility] Comment on above: Result Comment: . Performed By: #### L IPD2, BMP3, MG3 #### [facility] [address] [place] [address] Troponin I.cardiac [Mass/Vol] 0.033 ng/mL Normal 0.000-0.034 [facility] Comment on above: Result Comment: . Performed By: #### B NP3, TROPN, BMP3, HEMDF #### [facility] [address] [place] [address] VL Venous Duplex US Lower Ex t Bilateralon 05-14-2021 VL Venous Duplex US Lower Ext Bilateral Patient Name: MEGAN NASCIMENTO Ultrasound ACCESSION EXAM DATE/TIME PROCEDURE ORDERING PROVIDER [id number] 05/14/2021 09:25 EDT VL Venous Duplex US MD HARLEY PRAMOD Lower Ext Bilateral CPT code 66380 Reason For Exam (VL Venous Duplex US Lower Ext Bilateral) LE edema Report [facility] Lower Extremity Venous Duplex Report Patient Azam : 1940 Study 05/14/2021 Name: Megan Higuera (80yrs) Date: Patient [id number] Age: 80 Account: [id number] ID: Gender: M Loc: 444 BP: Ordering Physician: Gregg Harley Retail Office Manager: Nohemi Davenport RDMS, RVT Interpreting Physician: Paz Nielson MD Location: [facility] Indications: Edema of the bilateral lower legs. Conclusions 1. There is no evidence of acute deep or superficial venous thrombosis noted in the right lower extremity. 2. There is no evidence of acute deep or superficial venous thrombosis noted in the left lower extremity. History: Risk factors: Hypercoagulable state. Immobility. Age over 75 years. Study data: Complete lower extremity venous duplex evaluation. Grayscale 2D imaging, color Doppler imaging, and spectral Doppler analysis. Location: Bedside. Procedure: A vascular evaluation was performed with the patient in the supine position. Images were obtained using a [employer]rate E9 vascular ultrasound machine. Ultrasound Report Venous flow and imaging: + ------+-------+----- + +Location +Overall+Properties + + ------+-------+----- + +R CFV +Patent +Normal phasicity; spontaneous; + + + +normal augmentation; compressible + + ------+-------+----- + +R saphenofemoral junction+Patent +Compressible + + ------+-------+----- + +R profunda femoral +Patent +Normal phasicity; spontaneous; + + + +normal augmentation + + ------+-------+----- + +R FV - prox. +Patent +Compressible + + ------+-------+----- + +R FV - mid +Patent +Normal phasicity; spontaneous; + + + +normal augmentation; compressible + + ------+-------+----- + +R FV - distal +Patent +Compressible + + ------+-------+----- + +R popliteal +Patent +Normal phasicity; spontaneous; + + + +normal augmentation; compressible + + ------+-------+----- + +R gastrocnemius +Patent +Compressible + + ------+-------+----- + +R PTV +Patent +Compressible + + ------+-------+----- + +R peroneal +Patent +Compressible + + ------+-------+----- + +R soleal +Patent +Compressible + + ------+-------+----- + +R GSV +Patent +Compressible + + ------+-------+----- + +L CFV +Patent +Normal phasicity; spontaneous; + + + +normal augmentation; compressible + + ------+-------+----- + +L saphenofemoral junction+Patent +Compressible + + ------+-------+----- + +L profunda femoral +Patent +Normal phasicity; spontaneous; + + + +normal augmentation + + ------+-------+----- + +L FV - prox. +Patent +Compressible + + ------+-------+----- + +L FV - mid +Patent +Normal phasicity; spontaneous; + + + +normal augmentation; compressible + + ------+-------+----- + +L FV - distal +Patent +Compressible + + ------+-------+----- + +L popliteal +Patent +Normal phasicity; spontaneous; + + + +normal augmentation; compressible + + ------+-------+----- + +L gastrocnemius +Patent +Compressible + + ------+-------+----- + +L PTV +Patent +Compressible + + (more content not included)... Normal [facility] Basic Metabolic Panelon 10-2 Anion gap [Moles/Vol] 14 mmol/L High 3-13 [facility] Comment on above: Performed By: #### B NP3, TROPN, BMP3, HEMDF #### [facility] [employer] [address] [place] [address] Calcium [Mass/Vol] 9.6 mg/dL Normal 8.4-10.4 [facility] Comment on above: Performed By: #### B NP3, TROPN, BMP3, HEMDF #### [facility] [address] [place] [address] CO2 [Moles/Vol] 27 mmol/L Normal 22-30 [facility] Comment on above: Performed By: #### B NP3, TROPN, BMP3, HEMDF #### [facility] [address] [place] [address] Glucose [Mass/Vol] 105 mg/dL High 70-100 [facility] Comment on above: Performed By: #### B NP3, TROPN, BMP3, HEMDF #### [facility] [address] [place] [address] Urea nitrogen [Mass/Vol] 65 mg/dL High 7-17 [facility] Comment on above: Performed By: #### B NP3, TROPN, BMP3, HEMDF #### [facility] [address] [place] [address] Creatinine [Mass/Vol] 2.93 mg/dL High 0.52-1.25 [facility] Comment on above: Performed By: #### B NP3, TROPN, BMP3, HEMDF #### [facility] [address] [place] [address] GFR/1.73 sq M.predicted among blacks MDRD (S/P/Bld) [Vol rate/Area] 22.1 mL/min/{1.73_m2} Abnormal >60 [facility] Comment on above: Performed By: #### B NP3, TROPN, BMP3, HEMDF #### [facility] [address] [place] [address] GFR/1.73 sq M.predicted among non-blacks MDRD (S/P/Bld) [Vol rate/Area] 19.0 mL/min/{1.73_m2} Abnormal >60 [facility] Comment on above: Result Comment: KDIG O guidelines provide the following GFR categories: Stage GFR(ml/min/1.73 m2) Terms G1 >=90 Normal or high G2 60-89 Mildly decreased* G3a 45-59 Mildly to moderately decreased G3b 30-44 Moderately to severely decreased G4 15-29 Severely decreased G5 <15 Kidney failure *Relative to young adult level. In the absence of evidence of kidney damage, neither GFR category G1 nor G2 fulfill the criteria for CKD. The CKD-EPI equation is validated in individuals 18 years of age and older. Currently the best equation for estimating glomerular filtration rate (GFR) from serum creatinine in children is the Bedside Robertson equation. It is less accurate in patients with extremes of muscle mass, restriction of dietary protein, ingestion of creatine, extra-renal metabolism of creatinine, or treatment with medications that affect renal tubular creatinine secretion. Performed By: #### B NP3, TROPN, BMP3, HEMDF #### [facility] [address] [place] [address] Potassium [Moles/Vol] 4.2 mmol/L Normal 3.5-5.1 [facility] Comment on above: Performed By: #### B NP3, TROPN, BMP3, HEMDF #### [facility] [address] [place] [address] Chloride [Moles/Vol] 102 mmol/L Normal 98-107 [facility] Comment on above: Performed By: #### B NP3, TROPN, BMP3, HEMDF #### [facility] [address] [place] [address] Sodium [Moles/Vol] 144 mmol/L Normal 135-145 [facility] Comment on above: Performed By: #### B NP3, TROPN, BMP3, HEMDF #### [facility] [address] [place] [address] CR Chest Portableon 05-13-20 21 CR Chest Portable Patient Name: MEGAN NASCIMENOT Diagnostic Radiology ACCESSION EXAM DATE/TIME PROCEDURE ORDERING PROVIDER [id number] 05/13/2021 18:14 EDT CR Chest Portable [id number] PEREZ CPT code 66249 Reason For Exam (CR Chest Portable) SOB Report Portable chest 05/13/2021: Clinical Information: Shortness of breath. Findings: A single AP portable view of the chest was obtained at 1814 hours. Comparison was made to the prior study 01/30/2021. 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 The trachea is midline. The heart is not enlarged. There is atelectasis in the right lung base and a probable right pleural effusion. The lung liu are otherwise clear. Report Dictated on Final Dictating Physician: MD LAN RISA Signed Date and Time: 05/13/2021 6:41 pm Signed by: MD LAN RISA Transcribed Date and Time: 05/13/2021 6:42 Normal [facility] Complete Urinalysison 2020 Appearance (U) Clear Normal Clear [facility] Comment on above: Result Comment: . Performed By: #### B NP3, TROPN, BMP3, HEMDF #### [facility] [address] [place] [address] Bilirubin,Urine Negative Normal Negative [facility] Comment on above: Result Comment: . Performed By: #### B NP3, TROPN, BMP3, HEMDF #### [facility] [address] [place] [address] Color (U) Yellow Normal Lt. Yellow [facility] Comment on above: Result Comment: . Performed By: #### B NP3, TROPN, BMP3, HEMDF #### [facility] [address] [place] [address] Glucose Ql (U) Normal Normal Normal (<70) [facility] Comment on above: Result Comment: . Performed By: #### B NP3, TROPN, BMP3, HEMDF #### [facility] [address] [place] [address] Ketone,Urine Negative Normal Negative [facility] Comment on above: Result Comment: . Performed By: #### B NP3, TROPN, BMP3, HEMDF #### [facility] [address] [place] [address] Leukocytes,Urine Negative Normal Negative [facility] Comment on above: Result Comment: . Performed By: #### B NP3, TROPN, BMP3, HEMDF #### [facility] [address] [place] [address] Nitrites,Urine Negative Normal Negative [facility] Comment on above: Result Comment: . Performed By: #### B NP3, TROPN, BMP3, HEMDF #### [facility] [address] [place] [address] Occult Blood,Urine Negative Normal Negative [facility] Comment on above: Result Comment: . Performed By: #### B NP3, TROPN, BMP3, HEMDF #### [facility] [address] [place] [address] pH,Urine 5.0 Normal 5.0-8.0 [facility] Comment on above: Result Comment: . Performed By: #### B NP3, TROPN, BMP3, HEMDF #### [facility] [address] [place] [address] Specific [place],Urine 1.012 Normal 1.005 - 1.030 [facility] Comment on above: Result Comment: . Performed By: #### B NP3, TROPN, BMP3, HEMDF #### [facility] [address] [place] [address] Total Protein,Urine Negative Normal Negative [facility] Comment on above: Result Comment: . Performed By: #### B NP3, TROPN, BMP3, HEMDF #### [facility] [address] [place] [address] Urobilinogen,Urine Normal Normal Normal (0-1) [facility] Comment on above: Result Comment: . Performed By: #### B NP3, TROPN, BMP3, HEMDF #### [facility] [address] [place] [address] ED Provider Noteon 1 ED Provider Note Patient, Megan Nascimento, is seen and examined in conjunction with advanced practice practitioner. I independently performed history, physical exam, admitted all diagnostic treatment and disposition decisions. I wore a surgical mask for the entirety of this encounter. In brief their history revealed 80-year-old male with history of CHF, CKD presenting for fluid retention, shortness of breath. He has been having worsening CHF symptoms despite taking torsemide at home. Today noticed that his legs are swelling up. He has moved to a recliner because he cannot lie flat at night. He intermittently uses oxygen at home and has been using it more frequently. He does have shortness of breath when he lays flat or when he tries to walk around. Denies any chest pain.. Their focused exam: GENERAL: Awake, alert, no apparent distress HEENT: Atraumatic, normocephalic. PERRL. EOMI. NECK: Trachea midline. Supple. CV: Regular rate and rhythm, no murmurs, rubs or gallops RESPIRATORY: Clear breath sounds bilaterally. No respiratory distress. No accessory muscle use. GI: Distended abdomen. Abdomen soft, nontender throughout. No rigidity, rebound or guarding. NEURO: Alert and oriented x 3. Follows commands. Normal motor and sensation throughout. No focal deficits. EXTREMITIES: Bilateral lower extremity pitting edema to the mid thigh. 2+. SKIN: Warm, dry, no lesions noted PSYCH: Normal mood and affect ED course: 80-year-old male presenting for worsening shortness of breath, leg swelling. Vital signs within normal limits. Patient saturating well on nasal cannula. He does have lower extremity edema to the mid thigh. He also complains of abdominal distention and has been sleeping in recliner with nocturnal dyspnea and orthopnea. Plan order cardiac work-up and will admit for diuresis of CHF exacerbation EKG: Atrially sensed ventricularly paced rhythm at 74 bpm. Appropriately widened QRS with an otherwise normal intervals. No T wave inversions. No ST elevations or depressions. No STEMI. All diagnostic, treatment, and disposition decisions were made by myself in conjunction with the mid-level provider. For all further details of the patient's emergency department visit, please see the advance practice provider's documentation. Jadon Lora DO 05/15/21 0410 [facility] ED Provider Note Emergency Department Encounter [facility] ED Patient: Megan Nascimento : 1940 Date of Evaluation: 05/13/2021 ED Provider: DASIA Droado EDcare was supervised by Dr. Lora who independently examined and evaluated the patient. Please see their attestation note for further details. Chief Complaint Chief Complaint Patient presents with ? Urinary Retention ? Leg Swelling [place] (Location/Symptom, Timing/Onset, Context/Setting, Quality, Duration, Modifying Factors, Severity) Note limiting factors. Megan Nascimento is a 80 y.o. male who presents to the emergency department complaining of lower extremity swelling has been going on for the last 2 weeks, as well as difficulty urinating. And shortness of breath. Patient states that he has chronic kidney disease, as well as heart failure is on a water pill, saw his inside technical sales representative 2 weeks ago, and he was 15 pounds up, but his inside technical sales representative Dr. Lucas was okay with that because of his kidney disease. Since then, patient has gained even more weight, and is now extremely short of breath when laying on any incline, has been having to sleep in a chair upright. Patient states that he feels like whenever he urinates is not urinating everything out, patient is been taking all his medications as prescribed, has not missed any doses of his torsemide. Patient denies any chest pain, lightheadedness, dizziness, abdominal pain, dysuria, hematuria, diarrhea, fevers or chills. ROS: Review of Systems 14 systems reviewed and otherwise acutely negative except as in the [place]. Past History Past Medical History: Diagnosis Date ? Bladder cancer (HCC) ? CHF (congestive heart failure) (HCC) ? Chronic kidney disease ? DM (diabetes mellitus) (HCC) ? DM (diabetes mellitus) (HCC) ? DVT (deep venous thrombosis) (HCC) ? ED (erectile dysfunction) ? Follicular non-Hodgkin's lymphoma (HCC) ? GERD (gastroesophageal reflux disease) ? GERD (gastroesophageal reflux disease) ? HTN (hypertension) ? HTN (hypertension) ? Hyperlipidemia ? Non-ischemic cardiomyopathy (HCC) ? PUD (peptic ulcer disease) ? Pulmonary embolism (HCC) ? Pulmonary fibrosis (HCC) ? Rosacea ? Tachycardia Past Surgical History: Procedure Laterality Date ? BONE MARROW BIOPSY ? COLONOSCOPY ? COSMETIC SURGERY face lift, rhinoplasty ? ENDOSCOPY, COLON, DIAGNOSTIC ? EYE SURGERY cataract removal ? FACIAL COSMETIC SURGERY ? LYMPH NODE BIOPSY ? PACEMAKER PLACEMENT ? SEPTOPLASTY ? SKIN BIOPSY ? VENTRICULAR CARDIAC PACEMAKER INSERTION 09/11/2020 Bi-V ICD Social History Socioeconomic History ? Marital status: Spouse name: None ? Number of children: None ? Years of education: None ? Highest education level: None Occupational History ? None Tobacco Use ? Smoking status: Former Smoker Packs/day: 1.00 Years: 40.00 Pack years: 40.00 Quit date: 11/08/1999 Years since quittin.5 ? Smokeless tobacco: Never Used Vaping Use ? Vaping Use: Never used Substance and Sexual Activity ? Alcohol use: Yes Comment: occasional ? Drug use: No Comment: 1 cup of coffee 1/2 bottle of cola ? Sexual activity: None Other Topics Concern ? None Social History Narrative ? None Social Determinants of Health Financial Resource Strain: ? Difficulty of Paying Living Expenses: Food Insecurity: ? Worried About Running Out of Food in the Last Year: ? Ran Out of Food in the Last Year: Transportation Needs: ? Lack of Transportation (Medical): ? Lack of Transportation (Non-Medical): Physical Activity: ? Days of Exercise per Week: ? Minutes of Exercise per Session: Stress: ? Feeling of Stress : Social Connections: ? Frequency of Communication with Friends and Family: ? Frequency of Social Gatherings with Friends and Family: ? Attends Sikh Services: ? Active Member of Clubs or Organizations: ? Attends Club or Organization Meetings: ? Marital Status: Intimate Partner Violence: ? Fear of Current or Ex-Partner: ? Emotionally Abused: ? Physically Abused: ? Sexually Abused: Medications/Allergie s Previous Medications ALBUTEROL (PROVENTIL) (2.5 MG/3ML) 0.083% NEBULIZER SOLUTION INHALE 1 VIAL VIA NEBULIZER 3-4 TIMES DIALY APIXABAN (ELIQUIS) 2.5 MG TABS TABLET Take 1 tablet by mouth 2 times daily CHOLECALCIFEROL (VITAMIN D3) 1000 UNITS CAPS Take by mouth ENTRESTO 24-26 MG PER TABLET TAKE 1 TABLET BY MOUTH 2 TIMES DAILY FERROUS SULFATE (IRON 325) 325 (65 FE) MG TABLET Take 1 tablet by mouth 2 times daily GABAPENTIN (NEURONTIN) 600 MG TABLET Take 600 mg by mouth 2 times daily. LEVOTHYROXINE (SYNTHROID) 25 MCG TABLET Take 25 mcg by mouth daily METFORMIN (GLUCOPHAGE-XR) 500 MG EXTENDED RELEASE TABLET Take 500 mg by mouth 2 times daily METOPROLOL (TOPROL-XL) 100 MG XL TABLET Take 100 mg by mouth daily MULTIPLE VITAMINS-MINERALS (MULTIVITAMIN ADULTS PO) Take by mouth daily OXYGEN Inhale 2 (more content not included)... Normal [facility] Hemogram w/ Autodiffon 05-13 Abs Baso Cnt 0.0 10*3/uL Normal 0.0-0.2 [facility] Comment on above: Performed By: #### B NP3, TROPN, BMP3, HEMDF #### [facility] [address] [place] [address] Abs Neutrophile Cnt 3.5 10*3/uL Normal 1.8-7.0 [facility] Comment on above: Performed By: #### B NP3, TROPN, BMP3, HEMDF #### [facility] [address] [place] [address] Basophils/100 WBC (Bld) 0.8 % Normal 0.0-2.0 [facility] Comment on above: Performed By: #### B NP3, TROPN, BMP3, HEMDF #### [facility] [address] [place] [address] Eosinophils (Bld) [#/Vol] 0.3 10*3/uL Normal 0.0-0.5 [facility] Comment on above: Performed By: #### B NP3, TROPN, BMP3, HEMDF #### [facility] [address] [place] [address] Eosinophils/100 WBC (Bld) 5.9 % Normal 1.0-6.0 [facility] Comment on above: Performed By: #### B NP3, TROPN, BMP3, HEMDF #### [facility] [address] [place] [address] Erythrocyte distribution width (RBC) [Ratio] 18.3 % High 11.5-14.5 [facility] Comment on above: Performed By: #### B NP3, TROPN, BMP3, HEMDF #### [facility] [address] [place] [address] Granulocytes/100 WBC (Bld) 69.0 % Normal 40.0-80.0 [facility] Comment on above: Performed By: #### B NP3, TROPN, BMP3, HEMDF #### [facility] [address] [place] [address] Hematocrit (Bld) [Volume fraction] 37.8 % Low 40.0-52.0 [facility] Comment on above: Performed By: #### B NP3, TROPN, BMP3, HEMDF #### [facility] [address] [place] [address] Hemoglobin (Bld) [Mass/Vol] 12.2 g/dL Low 13.0-18.0 [facility] Comment on above: Performed By: #### B NP3, TROPN, BMP3, HEMDF #### [facility] [address] [place] [address] Lymphocytes (Bld) [#/Vol] 0.8 10*3/uL Low 1.0-4.3 [facility] Comment on above: Performed By: #### B NP3, TROPN, BMP3, HEMDF #### [facility] [address] [place] [address] Lymphocytes/100 WBC (Bld) 14.9 % Low 20.0-40.0 [facility] Comment on above: Performed By: #### B NP3, TROPN, BMP3, HEMDF #### [facility] [address] [place] [address] MCH (RBC) [Entitic mass] 29.7 pg Normal 26.0-34.0 [facility] Comment on above: Performed By: #### B NP3, TROPN, BMP3, HEMDF #### [facility] [address] [place] [address] MCHC 32.3 % Normal 32.0-36.0 [facility] Comment on above: Performed By: #### B NP3, TROPN, BMP3, HEMDF #### [facility] [address] [place] [address] MCV (RBC) [Entitic vol] 92.1 fL Normal 80.0-98.0 [facility] Comment on above: Performed By: #### B NP3, TROPN, BMP3, HEMDF #### [facility] [address] [place] [address] Monocytes (Bld) [#/Vol] 0.5 10*3/uL Normal 0.0-0.8 [facility] Comment on above: Performed By: #### B NP3, TROPN, BMP3, HEMDF #### [facility] [address] [place] [address] Monocytes/100 WBC (Bld) 9.4 % Normal 2.0-10.0 [facility] Comment on above: Performed By: #### B NP3, TROPN, BMP3, HEMDF #### [facility] [address] [place] [address] Platelet mean volume (Bld) [Entitic vol] 9.1 fL Normal 7.4-10.4 [facility] Comment on above: Performed By: #### B NP3, TROPN, BMP3, HEMDF #### [facility] [address] [place] [address] Platelets (Bld) [#/Vol] 252 10*3/uL Normal 140-440 [facility] Comment on above: Performed By: #### B NP3, TROPN, BMP3, HEMDF #### [facility] [address] [place] [address] RBC (Bld) [#/Vol] 4.11 10*6/uL Low 4.40-5.90 [facility] Comment on above: Performed By: #### B NP3, TROPN, BMP3, HEMDF #### [facility] [address] [place] [address] WBC (Bld) [#/Vol] 5.1 10*3/uL Normal 3.6-10.7 [facility] Comment on above: Performed By: #### B NP3, TROPN, BMP3, HEMDF #### [facility] [address] [place] [address] NT pro BNPon 05-13-2021 Natriuretic peptide B (Bld) [Mass/Vol] 96747 pg/mL High 0-450 [facility] Comment on above: Performed By: #### B NP3, TROPN, BMP3, HEMDF #### [facility] [address] [place] [address] Troponin Ion 05-13-2021 Troponin I.cardiac [Mass/Vol] 0.035 ng/mL High 0.000-0.034 [facility] Comment on above: Result Comment: . Performed By: #### B NP3, TROPN, BMP3, HEMDF #### [facility] [address] [place] [address] CULTURE BLOODon 02-04-2021 Microscopic examination of blood, culture CULTURE BLOOD --> Status: F No growth at 5 days. Normal [facility] Comment on above: Performed By: #### B NP3, TROPN, BMP3, HEMDF #### [facility] [address] [place] [address] CULTURE BLOOD (Two)on 2020 Microscopic examination of blood, culture CULTURE BLOOD (Two) --> Status: F No growth at 5 days. Normal [facility] Comment on above: Performed By: #### B GLU #### [facility] [address] [place] [address] Basic Metabolic Panelon 01-18 Anion gap [Moles/Vol] 6 mmol/L Normal 3-13 [facility] Comment on above: Performed By: #### B GLU #### [facility] [address] [place] [address] Calcium [Mass/Vol] 9.2 mg/dL Normal 8.4-10.4 [facility] Comment on above: Performed By: #### B GLU #### [facility] [address] [place] [address] CO2 [Moles/Vol] 34 mmol/L High 22-30 [facility] Comment on above: Performed By: #### B GLU #### [facility] [address] [place] [address] Glucose [Mass/Vol] 84 mg/dL Normal 70-100 [facility] Comment on above: Performed By: #### B GLU #### [facility] [address] [place] [address] Urea nitrogen [Mass/Vol] 49 mg/dL High 7-20 [facility] Comment on above: Performed By: #### B GLU #### [facility] [address] [place] [address] Creatinine [Mass/Vol] 2.60 mg/dL High 0.52-1.25 [facility] Comment on above: Performed By: #### B GLU #### [facility] [address] [place] [address] GFR/1.73 sq M.predicted among blacks MDRD (S/P/Bld) [Vol rate/Area] 25.5 mL/min/{1.73_m2} Abnormal >60 [facility] Comment on above: Performed By: #### B GLU #### [facility] [address] [place] [address] GFR/1.73 sq M.predicted among non-blacks MDRD (S/P/Bld) [Vol rate/Area] 22.0 mL/min/{1.73_m2} Abnormal >60 [facility] Comment on above: Result Comment: KDIG O guidelines provide the following GFR categories: Stage GFR(ml/min/1.73 m2) Terms G1 >=90 Normal or high G2 60-89 Mildly decreased* G3a 45-59 Mildly to moderately decreased G3b 30-44 Moderately to severely decreased G4 15-29 Severely decreased G5 <15 Kidney failure *Relative to young adult level. In the absence of evidence of kidney damage, neither GFR category G1 nor G2 fulfill the criteria for CKD. The CKD-EPI equation is validated in individuals 18 years of age and older. Currently the best equation for estimating glomerular filtration rate (GFR) from serum creatinine in children is the Bedside Robertson equation. It is less accurate in patients with extremes of muscle mass, restriction of dietary protein, ingestion of creatine, extra-renal metabolism of creatinine, or treatment with medications that affect renal tubular creatinine secretion. Performed By: #### B GLU #### [facility] [address] [place] [address] Potassium [Moles/Vol] 3.1 mmol/L Low 3.5-5.1 [facility] Comment on above: Performed By: #### B GLU #### [facility] [address] [place] [address] Sodium [Moles/Vol] 135 mmol/L Normal 135-145 [facility] Comment on above: Performed By: #### B GLU #### [facility] [address] [place] [address] Chloride [Moles/Vol] 95 mmol/L Low 98-107 [facility] Comment on above: Performed By: #### B GLU #### [facility] [address] [place] [address] Hemogram w/ Autodiffon 02-01 Abs Baso Cnt 0.1 10*3/uL Normal 0.0-0.2 [facility] Comment on above: Performed By: #### B GLU #### [facility] [address] [place] [address] Abs Neutrophile Cnt 2.8 10*3/uL Normal 1.8-7.0 [facility] Comment on above: Performed By: #### B GLU #### [facility] [address] [place] [address] Basophils/100 WBC (Bld) 2.0 % Normal 0.0-2.0 [facility] Comment on above: Performed By: #### B GLU #### [facility] [address] [place] [address] Eosinophils (Bld) [#/Vol] 0.4 10*3/uL Normal 0.0-0.5 [facility] Comment on above: Performed By: #### B GLU #### [facility] [address] [place] [address] Eosinophils/100 WBC (Bld) 9.1 % High 1.0-6.0 [facility] Comment on above: Performed By: #### B GLU #### [facility] [address] [place] [address] Erythrocyte distribution width (RBC) [Ratio] 17.4 % High 11.5-14.5 [facility] Comment on above: Performed By: #### B GLU #### [facility] [address] [place] [address] Granulocytes/100 WBC (Bld) 61.3 % Normal 40.0-80.0 [facility] Comment on above: Performed By: #### B GLU #### [facility] [address] [place] [address] Hematocrit (Bld) [Volume fraction] 35.8 % Low 40.0-52.0 [facility] Comment on above: Performed By: #### B GLU #### [facility] [address] [place] [address] Hemoglobin (Bld) [Mass/Vol] 12.1 g/dL Low 13.0-18.0 [facility] Comment on above: Performed By: #### B GLU #### [place] [address] [place] [address] Lymphocytes (Bld) [#/Vol] 0.8 10*3/uL Low 1.0-4.3 [facility] Comment on above: Performed By: #### B GLU #### [facility] [address] [place] [address] Lymphocytes/100 WBC (Bld) 18.4 % Low 20.0-40.0 [facility] Comment on above: Performed By: #### B GLU #### [facility] [address] [place] [address] MCH (RBC) [Entitic mass] 30.9 pg Normal 26.0-34.0 [facility] Comment on above: Performed By: #### B GLU #### [facility] [address] [place] [address] MCHC 33.8 % Normal 32.0-36.0 [facility] Comment on above: Performed By: #### B GLU #### [facility] [address] [place] [address] MCV (RBC) [Entitic vol] 91.6 fL Normal 80.0-98.0 [facility] Comment on above: Performed By: #### B GLU #### [facility] [address] [place] [address] Monocytes (Bld) [#/Vol] 0.4 10*3/uL Normal 0.0-0.8 [facility] Comment on above: Performed By: #### B GLU #### [facility] [address] [place] [address] Monocytes/100 WBC (Bld) 9.2 % Normal 2.0-10.0 [facility] Comment on above: Performed By: #### B GLU #### [facility] [address] [place] [address] Platelet mean volume (Bld) [Entitic vol] 8.9 fL Normal 7.4-10.4 [facility] Comment on above: Performed By: #### B GLU #### [facility] [address] [place] [address] Platelets (Bld) [#/Vol] 193 10*3/uL Normal 140-440 [facility] Comment on above: Performed By: #### B GLU #### [facility] [address] [place] [address] RBC (Bld) [#/Vol] 3.91 10*6/uL Low 4.40-5.90 [facility] Comment on above: Performed By: #### B GLU #### [facility] [address] [place] [address] WBC (Bld) [#/Vol] 4.5 10*3/uL Normal 3.6-10.7 [facility] Comment on above: Performed By: #### B GLU #### [facility] [address] [place] [address] Basic Metabolic Panelon 01-18-2020 Calcium [Mass/Vol] 9.4 mg/dL Normal 8.4-10.4 [facility] Comment on above: Performed By: #### B NP3, TROPN, BMP3, HEMDF #### [facility] [address] [place] [address] Glucose [Mass/Vol] 95 mg/dL Normal 70-100 [facility] Comment on above: Performed By: #### B NP3, TROPN, BMP3, HEMDF #### [facility] [address] [place] [address] Urea nitrogen [Mass/Vol] 51 mg/dL High 7-20 [facility] Comment on above: Performed By: #### B NP3, TROPN, BMP3, HEMDF #### [facility] [address] [place] [address] Anion gap [Moles/Vol] 9 mmol/L Normal 3-13 [facility] Comment on above: Performed By: #### B NP3, TROPN, BMP3, HEMDF #### [facility] [address] [place] [address] CO2 [Moles/Vol] 30 mmol/L Normal 22-30 [facility] Comment on above: Performed By: #### B NP3, TROPN, BMP3, HEMDF #### [facility] [address] [place] [address] Creatinine [Mass/Vol] 2.58 mg/dL High 0.52-1.25 [facility] Comment on above: Performed By: #### B NP3, TROPN, BMP3, HEMDF #### [facility] [address] [place] [address] GFR/1.73 sq M.predicted among blacks MDRD (S/P/Bld) [Vol rate/Area] 25.8 mL/min/{1.73_m2} Abnormal >60 [facility] Comment on above: Performed By: #### B NP3, TROPN, BMP3, HEMDF #### [facility] [address] [place] [address] GFR/1.73 sq M.predicted among non-blacks MDRD (S/P/Bld) [Vol rate/Area] 22.2 mL/min/{1.73_m2} Abnormal >60 [facility] Comment on above: Result Comment: KDIG O guidelines provide the following GFR categories: Stage GFR(ml/min/1.73 m2) Terms G1 >=90 Normal or high G2 60-89 Mildly decreased* G3a 45-59 Mildly to moderately decreased G3b 30-44 Moderately to severely decreased G4 15-29 Severely decreased G5 <15 Kidney failure *Relative to young adult level. In the absence of evidence of kidney damage, neither GFR category G1 nor G2 fulfill the criteria for CKD. The CKD-EPI equation is validated in individuals 18 years of age and older. Currently the best equation for estimating glomerular filtration rate (GFR) from serum creatinine in children is the Bedside Robertson equation. It is less accurate in patients with extremes of muscle mass, restriction of dietary protein, ingestion of creatine, extra-renal metabolism of creatinine, or treatment with medications that affect renal tubular creatinine secretion. Performed By: #### B NP3, TROPN, BMP3, HEMDF #### [facility] [address] [place] [address] Chloride [Moles/Vol] 99 mmol/L Normal 98-107 [facility] Comment on above: Performed By: #### B NP3, TROPN, BMP3, HEMDF #### [facility] [address] [place] [address] Potassium [Moles/Vol] 4.0 mmol/L Normal 3.5-5.1 [facility] Comment on above: Performed By: #### B NP3, TROPN, BMP3, HEMDF #### [facility] [address] [place] [address] Sodium [Moles/Vol] 138 mmol/L Normal 135-145 [facility] Comment on above: Performed By: #### B NP3, TROPN, BMP3, HEMDF #### [facility] [address] [place] [address] Hemogram w/ Autodiffon 01-31 Abs Baso Cnt 0.0 10*3/uL Normal 0.0-0.2 [facility] Comment on above: Performed By: #### B NP3, TROPN, BMP3, HEMDF #### [facility] [address] [place] [address] Abs Neutrophile Cnt 2.5 10*3/uL Normal 1.8-7.0 [facility] Comment on above: Performed By: #### B NP3, TROPN, BMP3, HEMDF #### [facility] [address] [place] [address] Basophils/100 WBC (Bld) 0.7 % Normal 0.0-2.0 [facility] Comment on above: Performed By: #### B NP3, TROPN, BMP3, HEMDF #### [facility] [address] [place] [address] Eosinophils (Bld) [#/Vol] 0.3 10*3/uL Normal 0.0-0.5 [facility] Comment on above: Performed By: #### B NP3, TROPN, BMP3, HEMDF #### [facility] [address] [place] [address] Eosinophils/100 WBC (Bld) 6.5 % High 1.0-6.0 [facility] Comment on above: Performed By: #### B NP3, TROPN, BMP3, HEMDF #### [facility] [address] [place] [address] Erythrocyte distribution width (RBC) [Ratio] 17.8 % High 11.5-14.5 [facility] Comment on above: Performed By: #### B NP3, TROPN, BMP3, HEMDF #### [facility] [address] [place] [address] Granulocytes/100 WBC (Bld) 63.7 % Normal 40.0-80.0 [facility] Comment on above: Performed By: #### B NP3, TROPN, BMP3, HEMDF #### [facility] [address] [place] [address] Hematocrit (Bld) [Volume fraction] 37.5 % Low 40.0-52.0 [facility] Comment on above: Performed By: #### B NP3, TROPN, BMP3, HEMDF #### [facility] [address] [place] [address] Hemoglobin (Bld) [Mass/Vol] 12.7 g/dL Low 13.0-18.0 [facility] Comment on above: Performed By: #### B NP3, TROPN, BMP3, HEMDF #### [facility] [address] [place] [address] Lymphocytes (Bld) [#/Vol] 0.7 10*3/uL Low 1.0-4.3 [facility] Comment on above: Performed By: #### B NP3, TROPN, BMP3, HEMDF #### [facility] [address] [place] [address] Lymphocytes/100 WBC (Bld) 18.0 % Low 20.0-40.0 [facility] Comment on above: Performed By: #### B NP3, TROPN, BMP3, HEMDF #### [facility] [address] [place] [address] MCH (RBC) [Entitic mass] 31.3 pg Normal 26.0-34.0 [facility] Comment on above: Performed By: #### B NP3, TROPN, BMP3, HEMDF #### [facility] [address] [place] [address] MCHC 33.8 % Normal 32.0-36.0 [facility] Comment on above: Performed By: #### B NP3, TROPN, BMP3, HEMDF #### [facility] [address] [place] [address] MCV (RBC) [Entitic vol] 92.7 fL Normal 80.0-98.0 [facility] Comment on above: Performed By: #### B NP3, TROPN, BMP3, HEMDF #### [facility] [address] [place] [address] Monocytes (Bld) [#/Vol] 0.4 10*3/uL Normal 0.0-0.8 [facility] Comment on above: Performed By: #### B NP3, TROPN, BMP3, HEMDF #### [facility] [address] [place] [address] Monocytes/100 WBC (Bld) 11.1 % High 2.0-10.0 [facility] Comment on above: Performed By: #### B NP3, TROPN, BMP3, HEMDF #### [facility] [address] [place] [address] Platelet mean volume (Bld) [Entitic vol] 8.9 fL Normal 7.4-10.4 [facility] Comment on above: Performed By: #### B NP3, TROPN, BMP3, HEMDF #### [facility] [address] [place] [address] Platelets (Bld) [#/Vol] 182 10*3/uL Normal 140-440 [facility] Comment on above: Performed By: #### B NP3, TROPN, BMP3, HEMDF #### [facility] [address] [place] [address] RBC (Bld) [#/Vol] 4.04 10*6/uL Low 4.40-5.90 [facility] Comment on above: Performed By: #### B NP3, TROPN, BMP3, HEMDF #### [facility] [address] [place] [address] WBC (Bld) [#/Vol] 3.9 10*3/uL Normal 3.6-10.7 [facility] Comment on above: Performed By: #### B NP3, TROPN, BMP3, HEMDF #### [facility] [address] [place] [address] Hepatic Functionon 1 ALP [Catalytic activity/Vol] 85 U/L Normal 38-126 [facility] Comment on above: Performed By: #### B NP3, TROPN, BMP3, HEMDF #### [facility] [address] [place] [address] ALT [Catalytic activity/Vol] 16 U/L Normal 0-49 [facility] Comment on above: Result Comment: The ALT test is performed by an updated assay method. Please note that the reference intervals have been changed and are now sex specific. Performed By: #### B NP3, TROPN, BMP3, HEMDF #### [facility] [address] [place] [address] AST [Catalytic activity/Vol] 29 U/L Normal 15-46 [facility] Comment on above: Performed By: #### B NP3, TROPN, BMP3, HEMDF #### [facility] [address] [place] [address] Bilirubin [Mass/Vol] 2.0 mg/dL High 0.2-1.3 [facility] Comment on above: Performed By: #### B NP3, TROPN, BMP3, HEMDF #### [facility] [address] [place] [address] Bilirubin.indirect [Mass/Vol] 0.0 mg/dL Normal 0.0-0.3 [facility] Comment on above: Performed By: #### B NP3, TROPN, BMP3, HEMDF #### [facility] [address] [place] [address] Protein [Mass/Vol] 6.9 g/dL Normal 6.3-8.2 [facility] Comment on above: Performed By: #### B NP3, TROPN, BMP3, HEMDF #### [facility] [address] [place] [address] Albumin [Mass/Vol] 3.9 g/dL Normal 3.5-5.0 [facility] Comment on above: Performed By: #### B NP3, TROPN, BMP3, HEMDF #### [facility] [address] [place] [address] Lactic Acidon 01-31-2021 Lactate [Moles/Vol] 2.2 mmol/L Critically high 0.7-2.0 [facility] Comment on above: Performed By: #### T ROPN, LACT3 #### [facility] [address] [place] [address] Troponin Ion 01-31-2021 Troponin I.cardiac [Mass/Vol] 0.027 ng/mL Normal 0.000-0.034 [facility] Comment on above: Result Comment: . Performed By: #### B GLU #### [facility] [address] [place] [address] CR Chest Portableon 01-31-20 CR Chest Portable Patient Name: MEGAN NASCIMENTO Diagnostic Radiology ACCESSION EXAM DATE/TIME PROCEDURE ORDERING PROVIDER [id number] 01/30/2021 07:12 EDT CR Chest Portable MD CHRIS, FRANCI [place] CPT code 65035 Reason For Exam (CR Chest Portable) n/v Report Indication: Nausea and vomiting. A frontal view of the chest timed 06 is compared to the study dated 09/22/2020. Again identified is a left-sided ICD. There is stable mild cardiomegaly. Atherosclerotic calcifications of the thoracic aorta are again visualized. The mediastinum is unchanged. There is mild pulmonary vascular congestion and bilateral pulmonary interstitial edema. Right basilar infiltrate or atelectatic changes visualized. There is a right pleural effusion. The left lung is clear. There are degenerative changes of the spine and shoulders. IMPRESSION: 1. Mild CHF. 2. Right basilar infiltrate/atelectat ic change and right pleural effusion. Report Dictated on Final Dictating Physician: DO WING ANTHONY Signed Date and Time: 01/30/2021 7:20 am Signed by: DO WING ANTHONY Transcribed Date and Time: 01/30/2021 7:21 Normal [facility] CT Abdomen/Pelvis w/o Contra ston 01-30-2021 CT Abdomen/Pelvis w/o Contrast Patient Name: MEGAN NASCIMENTO Computed Tomography ACCESSION EXAM DATE/TIME PROCEDURE ORDERING PROVIDER [id number] 01/30/2021 06:[address] Abdomen/Pelvis (Dinora MENDOZA MD, [facility] [place] PO, No IV) CPT code 20323 Reason For Exam (CT Abdomen/Pelvis (No PO, No IV)) abdominal pain Report EXAM: CT Abdomen and pelvis INDICATION: Abdominal pain COMPARISON: 09/05/2020 TECHNIQUE: CT of the abdomen and pelvis was performed without intravenous contrast. Coronal and sagittal reformats were obtained. FINDINGS: LOWER CHEST: Large right pleural effusion right basilar atelectasis. Trace pericardial effusion. ABDOMEN: LIVER: There is atrophy of the medial segment of the left hepatic lobe with prominent fissure for the falciform ligament and a mildly nodular contour, consistent with cirrhosis. BILE DUCTS: normal caliber. GALLBLADDER: Few layering calcified gallstones. No gallbladder wall thickening. PANCREAS: within normal limits. SPLEEN: within normal limits. ADRENALS: within normal limits. KIDNEYS: Large left exophytic cyst measuring up to 8.6 cm. Additional cyst noted anteriorly measuring up to 2.9 cm. Punctate right renal calculi. No hydronephrosis. PELVIS: REPRODUCTIVE ORGANS: no pelvic masses. URETERS: within normal limits. BLADDER: within normal limits. BOWEL: Normal caliber. Sigmoid colonic diverticulosis. No evidence of acute diverticulitis. No enlarged mesenteric lymph nodes. PERITONEUM: Small volume ascites. VESSELS: Atherosclerotic changes in the aortoiliac vessels. LYMPH NODES: No enlarged nodes. RETROPERITONEUM: within normal limits. ABDOMINAL WALL: within normal limits. BONES: Multilevel degenerative changes of the imaged spine. IMPRESSION: Computed Tomography Report 1. Findings suggesting cirrhosis with small volume ascites. 2. Large right pleural effusion with right basilar atelectasis, partially imaged. 3. Sigmoid colonic diverticulosis. No evidence of acute diverticulitis. 4. Cholelithiasis. 5. Large left renal cysts measuring up to 3.4 cm. Likely benign cyst. No routine follow-up is required. 6. Punctate right renal calculi. No hydronephrosis. Recommendations based on Management of the Incidental Renal Mass on CT: A White Paper of the ACR Incidental Findings Committee. J Am Vivienne Radiol 2018;15(2):264-273 Report Dictated on Workstation: [facility] Final Dictating Physician: MD JO KEVIN Signed Date and Time: 01/30/2021 6:58 am Signed by: MD JO KEVIN Transcribed Date and Time: 01/30/2021 6:59 Normal [facility] Comp Metabolic Panelon 01-30 Calcium [Mass/Vol] 10.5 mg/dL High 8.4-10.4 [facility] Comment on above: Performed By: #### B GLU #### [facility] [address] [place] [address] ALP [Catalytic activity/Vol] 137 U/L High 38-126 [facility] Comment on above: Performed By: #### B GLU #### [facility] [address] [place] [address] ALT [Catalytic activity/Vol] 21 U/L Normal 0-49 [facility] Comment on above: Result Comment: The ALT test is performed by an updated assay method. Please note that the reference intervals have been changed and are now sex specific. Performed By: #### B GLU #### [facility] [address] [place] [address] Anion gap [Moles/Vol] 16 mmol/L High 3-13 [facility] Comment on above: Performed By: #### B GLU #### [facility] [address] [place] [address] AST [Catalytic activity/Vol] 46 U/L Normal 15-46 [facility] Comment on above: Performed By: #### B GLU #### [facility] [address] [place] [address] Bilirubin [Mass/Vol] 3.1 mg/dL High 0.2-1.3 [facility] Comment on above: Performed By: #### B GLU #### [facility] [address] [place] [address] CO2 [Moles/Vol] 26 mmol/L Normal 22-30 [facility] Comment on above: Performed By: #### B GLU #### [facility] [address] [place] [address] Creatinine [Mass/Vol] 2.52 mg/dL High 0.52-1.25 [facility] Comment on above: Performed By: #### B GLU #### [facility] [address] [place] [address] GFR/1.73 sq M.predicted among blacks MDRD (S/P/Bld) [Vol rate/Area] 26.5 mL/min/{1.73_m2} Abnormal >60 [facility] Comment on above: Performed By: #### B GLU #### [facility] [address] [place] [address] GFR/1.73 sq M.predicted among non-blacks MDRD (S/P/Bld) [Vol rate/Area] 22.9 mL/min/{1.73_m2} Abnormal >60 [facility] Comment on above: Result Comment: KDIG O guidelines provide the following GFR categories: Stage GFR(ml/min/1.73 m2) Terms G1 >=90 Normal or high G2 60-89 Mildly decreased* G3a 45-59 Mildly to moderately decreased G3b 30-44 Moderately to severely decreased G4 15-29 Severely decreased G5 <15 Kidney failure *Relative to young adult level. In the absence of evidence of kidney damage, neither GFR category G1 nor G2 fulfill the criteria for CKD. The CKD-EPI equation is validated in individuals 18 years of age and older. Currently the best equation for estimating glomerular filtration rate (GFR) from serum creatinine in children is the Bedside Robertson equation. It is less accurate in patients with extremes of muscle mass, restriction of dietary protein, ingestion of creatine, extra-renal metabolism of creatinine, or treatment with medications that affect renal tubular creatinine secretion. Performed By: #### B GLU #### [facility] [address] [place] [address] Glucose [Mass/Vol] 99 mg/dL Normal 70-100 [facility] Comment on above: Performed By: #### B GLU #### [facility] [address] [place] [address] Protein [Mass/Vol] 8.9 g/dL High 6.3-8.2 [facility] Comment on above: Performed By: #### B GLU #### [facility] [address] [place] [address] Urea nitrogen [Mass/Vol] 50 mg/dL High 7-20 [facility] Comment on above: Performed By: #### B GLU #### [facility] [address] [place] [address] Albumin [Mass/Vol] 4.9 g/dL Normal 3.5-5.0 [facility] Comment on above: Performed By: #### B GLU #### [facility] [address] [place] [address] Chloride [Moles/Vol] 96 mmol/L Low 98-107 [facility] Comment on above: Performed By: #### B GLU #### [facility] [address] [place] [address] Potassium [Moles/Vol] 4.6 mmol/L Normal 3.5-5.1 [facility] Comment on above: Performed By: #### B GLU #### [facility] [address] [place] [address] Sodium [Moles/Vol] 138 mmol/L Normal 135-145 [facility] Comment on above: Performed By: #### B GLU #### [facility] [address] [place] [address] ED Provider Noteon 1 ED Provider Note Emergency Department Encounter [facility] [place] [facility] Patient Identification Pt Name: Megan Nascimento Birthdate: 1940 Age: 80 y.o. Sex: male Date of evaluation: 01/30/2021 Provider: Franci Mendoza MD PCP: RIGOBERTO DURAND MD Chief Complaint Abdominal Pain History of Present Illness: Patient presents for evaluation abdominal pain. Is been ongoing and more and more severe since Friday. Describes a lower abdominal aching and sharp pain. There is now associated nausea vomiting overnight. Vomit is yellow in appearance. There is no associated fevers, chest pain, sick contact, dysuria, rash or swelling. With the pain is severe he has difficulty breathing. Patient has had some similar pains before in the past and was told that he had a bad gallbladder. The gallbladder was not taking care of because he had some cardiac issues at the time and it was put off to a later date. Review of Systems: Constitutional: Denies fever Eyes: Denies loss of vision Ears, Nose, Mouth, Throat: Denies difficulty swallowing Cardiovascular: Denies chest pain Respiratory: difficulty breathing Gastroinestinal: Abdominal pain nausea vomiting Genitourinary: Denies dysuria Musculoskeletal: Denies extremity swelling Integumentary: Denies rash Neurologic: Denies headache History: I have reviewed the following nursing documentation: Past Medical History: Diagnosis Date ? Bladder cancer (HCC) ? DM (diabetes mellitus) (HCC) ? DM (diabetes mellitus) (HCC) ? DVT (deep venous thrombosis) (HCC) ? ED (erectile dysfunction) ? Follicular non-Hodgkin's lymphoma (HCC) ? GERD (gastroesophageal reflux disease) ? GERD (gastroesophageal reflux disease) ? HTN (hypertension) ? HTN (hypertension) ? Hyperlipidemia ? Non-ischemic cardiomyopathy (HCC) ? PUD (peptic ulcer disease) ? Pulmonary embolism (HCC) ? Pulmonary fibrosis (HCC) ? Rosacea ? Tachycardia Past Surgical History: Procedure Laterality Date ? BONE MARROW BIOPSY ? FACIAL COSMETIC SURGERY ? LYMPH NODE BIOPSY ? SEPTOPLASTY ? VENTRICULAR CARDIAC PACEMAKER INSERTION 09/11/2020 Bi-V ICD Previous Medications ALBUTEROL (PROVENTIL) (2.5 MG/3ML) 0.083% NEBULIZER SOLUTION INHALE 1 VIAL VIA NEBULIZER 3-4 TIMES DIALY APIXABAN (ELIQUIS) 2.5 MG TABS TABLET Take 1 tablet by mouth 2 times daily CHOLECALCIFEROL (VITAMIN D3) 1000 UNITS CAPS Take by mouth FERROUS SULFATE (IRON 325) 325 (65 FE) MG TABLET Take 1 tablet by mouth 2 times daily GABAPENTIN (NEURONTIN) 600 MG TABLET Take 600 mg by mouth 2 times daily. METOLAZONE (ZAROXOLYN) 5 MG TABLET Take 1 tablet by mouth daily X 3 days METOPROLOL (TOPROL-XL) 100 MG XL TABLET Take 100 mg by mouth daily MULTIPLE VITAMINS-MINERALS (MULTIVITAMIN ADULTS PO) Take by mouth daily OXYGEN Inhale 2 L into the lungs nightly as needed PANTOPRAZOLE (PROTONIX) 40 MG TABLET daily POTASSIUM CHLORIDE (KLOR-CON M) 20 MEQ EXTENDED RELEASE TABLET Take 1 tablet by mouth 2 times daily SACUBITRIL-VALSARTAN (ENTRESTO) 24-26 MG PER TABLET Take 1 tablet by mouth 2 times daily SERTRALINE (ZOLOFT) 25 MG TABLET Take 25 mg by mouth daily SILDENAFIL (VIAGRA) 100 MG TABLET Take 100 mg by mouth as needed for Erectile Dysfunction TAMSULOSIN (FLOMAX) 0.4 MG CAPSULE Take 0.4 mg by mouth daily TESTOSTERONE 20.25 MG/1.25GM (1.62%) GEL Place onto the skin TORSEMIDE (DEMADEX) 100 MG TABLET Take 1 tablet by mouth 2 times daily VITAMIN B-12 (CYANOCOBALAMIN) 1000 MCG TABLET Take 1 tablet by mouth daily Seasonal Family History Problem Relation Age of Onset ? High Blood Pressure Mother ? High Blood Pressure Father Social History Socioeconomic History ? Marital status: Spouse name: None ? Number of children: None ? Years of education: None ? Highest education level: None Occupational History ? None Tobacco Use ? Smoking status: Former Smoker Packs/day: 1.00 Years: 40.00 Pack years: 40.00 Quit date: 11/08/1999 Years since quittin.2 ? Smokeless tobacco: Never Used Substance and Sexual Activity ? Alcohol use: Not Currently Comment: occasional ? Drug use: No Comment: 1 cup of coffee 1/2 bottle of cola ? Sexual activity: None Other Topics Concern ? None Social History Narrative ? None Social Determinants of Health Financial Resource Strain: ? Difficulty of Paying Living Expenses: Food Insecurity: ? Worried About Running Out of Food in the Last Year: ? Ran Out of Food in the Last Year: Transportation Needs: ? Lack of Transportation (Medical): ? Lack of Transportation (Non-Medical): Physical Activity: ? Days of Exercise per Week: ? Minutes of Exercise per Session: Stress: ? Feeling of Stress : Social Connections: ? Frequency of Communication with Friends and Family: ? Frequency of Social Gatherings with Friends and Family: ? Attends Sikh Services: ? Active Member of Clubs or Organizations: ? Attends Club or Organization Meetings: (more content not included)... Normal [facility] Hemogram w/ Autodiffon 01-30 Abs Baso Cnt 0.1 10*3/uL Normal 0.0-0.2 [facility] Comment on above: Performed By: #### B GLU #### [facility] [address] [place] [address] Abs Neutrophile Cnt 3.6 10*3/uL Normal 1.8-7.0 [facility] Comment on above: Performed By: #### B GLU #### [facility] [address] [place] [address] Basophils/100 WBC (Bld) 1.4 % Normal 0.0-2.0 [facility] Comment on above: Performed By: #### B GLU #### [facility] [address] [place] [address] Eosinophils (Bld) [#/Vol] 0.2 10*3/uL Normal 0.0-0.5 [facility] Comment on above: Performed By: #### B GLU #### [facility] [address] [place] [address] Eosinophils/100 WBC (Bld) 3.7 % Normal 1.0-6.0 [facility] Comment on above: Performed By: #### B GLU #### [facility] [address] [place] [address] Erythrocyte distribution width (RBC) [Ratio] 17.8 % High 11.5-14.5 [facility] Comment on above: Performed By: #### B GLU #### [facility] [address] [place] [address] Granulocytes/100 WBC (Bld) 65.9 % Normal 40.0-80.0 [facility] Comment on above: Performed By: #### B GLU #### [facility] [address] [place] [address] Hematocrit (Bld) [Volume fraction] 43.9 % Normal 40.0-52.0 [facility] Comment on above: Performed By: #### B GLU #### [facility] [address] [place] [address] Hemoglobin (Bld) [Mass/Vol] 14.6 g/dL Normal 13.0-18.0 [facility] Comment on above: Performed By: #### B GLU #### [facility] [address] [place] [address] Lymphocytes (Bld) [#/Vol] 1.0 10*3/uL Normal 1.0-4.3 [facility] Comment on above: Performed By: #### B GLU #### [facility] [address] [place] [address] Lymphocytes/100 WBC (Bld) 19.2 % Low 20.0-40.0 [facility] Comment on above: Performed By: #### B GLU #### [facility] [address] [place] [address] MCH (RBC) [Entitic mass] 30.6 pg Normal 26.0-34.0 [facility] Comment on above: Performed By: #### B GLU #### [facility] [address] [place] [address] MCHC 33.2 % Normal 32.0-36.0 [facility] Comment on above: Performed By: #### B GLU #### [facility] [address] [place] [address] MCV (RBC) [Entitic vol] 92.2 fL Normal 80.0-98.0 [facility] Comment on above: Performed By: #### B GLU #### [facility] [address] [place] [address] Monocytes (Bld) [#/Vol] 0.5 10*3/uL Normal 0.0-0.8 [facility] Comment on above: Performed By: #### B GLU #### [facility] [address] [place] [address] Monocytes/100 WBC (Bld) 9.8 % Normal 2.0-10.0 [facility] Comment on above: Performed By: #### B GLU #### [facility] [address] [place] [address] Platelet mean volume (Bld) [Entitic vol] 9.1 fL Normal 7.4-10.4 [facility] Comment on above: Performed By: #### B GLU #### [facility] [address] [place] [address] Platelets (Bld) [#/Vol] 226 10*3/uL Normal 140-440 [facility] Comment on above: Performed By: #### B GLU #### [facility] [address] [place] [address] RBC (Bld) [#/Vol] 4.77 10*6/uL Normal 4.40-5.90 [facility] Comment on above: Performed By: #### B GLU #### [facility] [address] [place] [address] WBC (Bld) [#/Vol] 5.4 10*3/uL Normal 3.6-10.7 [facility] Comment on above: Performed By: #### B GLU #### [facility] [address] [place] [address] Lactic Acidon 01-30-2021 Lactate [Moles/Vol] 3.3 mmol/L Critically high 0.7-2.0 [facility] Comment on above: Performed By: #### B GLU #### [facility] [address] [place] [address] Lactic Acid, Sepsison 2020 Lactate [Moles/Vol] 2.4 mmol/L Critically high 0.7-2.0 [facility] Comment on above: Performed By: #### L IPD2, BMP3, MG3 #### [facility] [address] [place] [address] Lactate [Moles/Vol] 2.8 mmol/L Critically high 0.7-2.0 [facility] Comment on above: Performed By: #### B GLU #### [facility] [address] [place] [address] Lipaseon 01-30-2021 Lipase [Catalytic activity/Vol] 179 U/L Normal 23-300 [facility] Comment on above: Performed By: #### B GLU #### [facility] [address] [place] [address] Troponin Ion 01-30-2021 Troponin I.cardiac [Mass/Vol] 0.039 ng/mL High 0.000-0.034 [facility] Comment on above: Result Comment: . Performed By: #### B GLU #### [facility] [address] [place] [address] US Abdomen Limitedon 021 US Abdomen Limited Patient Name: MEGAN NASCIMENTO Ultrasound ACCESSION EXAM DATE/TIME PROCEDURE ORDERING PROVIDER [id number] 01/30/2021 07:25 EDT US Abdomen Limited MD MENDOZA KEVIN G CPT code 43383 Reason For Exam (US Abdomen Limited) right sided ab pain Report Indication: Right-sided abdominal pain.. Ultrasound of the right upper quadrant was performed. The study was correlated with the CT scans of the abdomen and pelvis performed earlier today. The liver is decreased in size. There is mild heterogeneity of the hepatic echotexture. A moderate amount of perihepatic ascites is visualized. There are no focal intrahepatic masses. The gallbladder is visualized and contains a 1.2 cm shadowing stone. There is nonspecific mild diffuse gallbladder wall thickening. There is no intra or extrahepatic biliary ductal dilatation. The common bile duct measures 4.6 mm. The pancreas is nonvisualized due to overlying bowel gas. Cursory evaluation of the right kidney shows no evidence of hydronephrosis. A 2.4 x 1.5 x 2.1 cm simple cyst is identified within the right kidney. Note is made of a large right pleural effusion. Impression: 1. Probable cirrhotic changes of the liver. No evidence of an intrahepatic mass or biliary ductal dilatation. 2. Cholelithiasis. Nonspecific mild diffuse gallbladder wall thickening. 3. 2.4 cm right renal cyst. 4. Nonvisualization of pancreas due to overlying bowel gas. 5. Moderate amount of perihepatic ascites. 6. Large right pleural effusion. Report Dictated on Final Dictating Physician: DO WING ANTHONY Signed Date and Time: 01/30/2021 7:37 am Signed by: DO WING ANTHONY Transcribed Date and Time: 01/30/2021 7:38 Normal [facility] Basic Metabolic Panelon 03-0 Calcium [Mass/Vol] 9.5 mg/dL Normal 8.4-10.4 [facility] Comment on above: Performed By: #### L IPD2, BMP3, MG3 #### [facility] [address] [place] [address] Anion gap [Moles/Vol] 11 mmol/L Normal 3-13 [facility] Comment on above: Performed By: #### L IPD2, BMP3, MG3 #### [facility] [address] [place] [address] CO2 [Moles/Vol] 35 mmol/L High 22-30 [facility] Comment on above: Performed By: #### L IPD2, BMP3, MG3 #### [facility] [address] [place] [address] Creatinine [Mass/Vol] 2.14 mg/dL High 0.52-1.25 [facility] Comment on above: Performed By: #### L IPD2, BMP3, MG3 #### [facility] [employer] [address] [place] [address] GFR/1.73 sq M.predicted among blacks MDRD (S/P/Bld) [Vol rate/Area] 32.4 mL/min/{1.73_m2} Abnormal >60 [facility] Comment on above: Performed By: #### L IPD2, BMP3, MG3 #### [facility] [employer] [facility] [address] [place] [address] GFR/1.73 sq M.predicted among non-blacks MDRD (S/P/Bld) [Vol rate/Area] 27.9 mL/min/{1.73_m2} Abnormal >60 [facility] Comment on above: Result Comment: KDIG O guidelines provide the following GFR categories: Stage GFR(ml/min/1.73 m2) Terms G1 >=90 Normal or high G2 60-89 Mildly decreased* G3a 45-59 Mildly to moderately decreased G3b 30-44 Moderately to severely decreased G4 15-29 Severely decreased G5 <15 Kidney failure *Relative to young adult level. In the absence of evidence of kidney damage, neither GFR category G1 nor G2 fulfill the criteria for CKD. The CKD-EPI equation is validated in individuals 18 years of age and older. Currently the best equation for estimating glomerular filtration rate (GFR) from serum creatinine in children is the Bedside Robertson equation. It is less accurate in patients with extremes of muscle mass, restriction of dietary protein, ingestion of creatine, extra-renal metabolism of creatinine, or treatment with medications that affect renal tubular creatinine secretion. Performed By: #### L IPD2, BMP3, MG3 #### [facility] [employer] [facility] [address] [place] [address] Glucose [Mass/Vol] 115 mg/dL High 70-100 [facility] Comment on above: Performed By: #### L IPD2, BMP3, MG3 #### [facility] [address] [place] [address] Urea nitrogen [Mass/Vol] 41 mg/dL High 7-20 [facility] Comment on above: Performed By: #### L IPD2, BMP3, MG3 #### [facility] [employer] [facility] [address] [place] [address] Chloride [Moles/Vol] 94 mmol/L Low 98-107 [facility] Comment on above: Performed By: #### L IPD2, BMP3, MG3 #### [facility] [address] [place] [address] Potassium [Moles/Vol] 4.3 mmol/L Normal 3.5-5.1 [facility] Comment on above: Performed By: #### L IPD2, BMP3, MG3 #### [facility] [address] [place] [address] Sodium [Moles/Vol] 139 mmol/L Normal 135-145 [facility] Comment on above: Performed By: #### L IPD2, BMP3, MG3 #### [facility] [address] [place] [address] Anion gap [Moles/Vol] 11 mmol/L 3 - 13 mmol/L [facility] Work Phone: Calcium [Mass/Vol] 9.5 mg/dL 8.4 - 10. 4 mg/dL [facility] Work Phone: Chloride [Moles/Vol] 94 mmol/L Low 98 - 10 7 mmol/L [facility] Work Phone: CO2 [Moles/Vol] 35 mmol/L High 22 - 30 mmol/L [facility] Work Phone: Creatinine [Mass/Vol] 2.14 mg/dL High 0.52 - 1.25 mg/dL [facility] Work Phone: EGFR IF NonAfrican Greenlandic 27.9 mL/min Abnormal >60 [facility] Work Phone: Comment on above: KDIGO guidelines pro vide the following GFR categories: Stage GFR(ml/min/1.73 m2) Terms G1 >=90 Normal or high G2 60-89 Mildly decreased* G3a 45-59 Mildly to moderately decreased G3b 30-44 Moderately to severely decreased G4 15-29 Severely decreased G5 <15 Kidney failure *Relative to young adult level. In the absence of evidence of kidney damage, neither GFR category G1 nor G2 fulfill the criteria for CKD. The CKD-EPI equation is validated in individuals 18 years of age and older. Currently the best equation for estimating glomerular filtration rate (GFR) from serum creatinine in children is the Bedside Robertson equation. It is less accurate in patients with extremes of muscle mass, restriction of dietary protein, ingestion of creatine, extra-renal metabolism of creatinine, or treatment with medications that affect renal tubular creatinine secretion. GFR/1.73 sq M predicted among blacks MDRD (S/P/Bld) [Vol rate/Area] 32.4 mL/min/{1.73_m2} Abnormal >60 [facility] Work Phone: Glucose [Mass/Vol] 115 mg/dL High 70 - 100 mg/dL [facility] Work Phone: Interpretation and review of laboratory results Abnormal [facility] Work Phone: Potassium [Moles/Vol] 4.3 mmol/L 3.5 - 5.1 mmol/L [facility] Work Phone: Sodium [Moles/Vol] 139 mmol/L 135 - 145 mmol/L [facility] Work Phone: Urea nitrogen [Mass/Vol] 41 mg/dL High 7 - 20 mg/d L [facility] Work Phone: CBC Auto Differentialon 03-0 Absolute Baso # 0.1 10*3/uL 0.0 - 0.2 10*3/uL [facility] Work Phone: Absolute Neut # 4.2 10*3/uL 1.8 - 7.0 10*3/uL [facility] Work Phone: Basophils/100 WBC (Bld) 0.8 % 0.0 - 2.0 % [facility] Work Phone: Eosinophils (Bld) [#/Vol] 0.3 10*3/uL 0.0 - 0.5 10*3/uL [facility] Work Phone: Eosinophils/100 WBC (Bld) 5.5 % 1.0 - 6.0 % [facility] Work Phone: Erythrocyte distribution width (RBC) [Ratio] 33.6 % High 11.5 - 14.5 % [facility] Work Phone: Granulocytes/100 WBC (Bld) 67.3 % 40.0 - 80.0 % [employer] Work Phone: Hematocrit (Bld) [Volume fraction] 36.4 % Low 40.0 - 52.0 % [employer] Work Phone: Hemoglobin (Bld) [Mass/Vol] 11.6 g/dL Low 13.0 - 18.0 g/dL [employer] Work Phone: Interpretation and review of laboratory results Abnormal [employer] Work Phone: Lymphocytes (Bld) [#/Vol] 1.2 10*3/uL 1.0 - 4.3 10*3/uL [employer] Work Phone: Lymphocytes/100 WBC (Bld) 19.9 % Low 20.0 - 40.0 % [employer] Work Phone: MCH (RBC) [Entitic mass] 26.7 pg 26. 0 - 34.0 pg [employer] Work Phone: MCHC (RBC) [Mass/Vol] 31.9 % Low 32.0 - 36.0 % [employer] Work Phone: MCV (RBC) [Entitic vol] 83.5 fL 80.0 - 98.0 fL [employer] Work Phone: Monocytes (Bld) [#/Vol] 0.4 10*3/uL 0.0 - 0.8 10*3/uL [employer] Work Phone: Monocytes/100 WBC (Bld) 6.5 % 2.0 - 10.0 % [employer] Work Phone: Platelet mean volume (Bld) [Entitic vol] 8.6 fL 7.4 - 10.4 fL [employer] Work Phone: Platelets (Bld) [#/Vol] 261 10*3/uL 140 - 440 10*3/uL [employer] Work Phone: RBC (Bld) [#/Vol] 4.36 10*6/uL Low 4.40 - 5.9 0 10*6/uL [employer] Work Phone: WBC (Bld) [#/Vol] 6.2 10*3/uL 3.6 - 10.7 10*3/uL [facility] Work Phone: Test Performed by [facility] [employer], [address] [place] [address] [facility] Work Phone: Hemogram w/ Autodiffon 09-26 Abs Baso Cnt 0.1 10*3/uL Normal 0.0-0.2 [facility] Comment on above: Performed By: #### L IPD2, BMP3, MG3 #### [facility] [employer] [address] [place] [address] Abs Neutrophile Cnt 4.2 10*3/uL Normal 1.8-7.0 [facility] Comment on above: Performed By: #### L IPD2, BMP3, MG3 #### [facility] [employer] [address] [place] [address] Basophils/100 WBC (Bld) 0.8 % Normal 0.0-2.0 [facility] Comment on above: Performed By: #### L IPD2, BMP3, MG3 #### [facility] [employer] [address] [place] [address] Eosinophils (Bld) [#/Vol] 0.3 10*3/uL Normal 0.0-0.5 [facility] Comment on above: Performed By: #### L IPD2, BMP3, MG3 #### [facility] [employer] [address] [place] [address] Eosinophils/100 WBC (Bld) 5.5 % Normal 1.0-6.0 [facility] Comment on above: Performed By: #### L IPD2, BMP3, MG3 #### [facility] [employer] [address] [place] [address] Erythrocyte distribution width (RBC) [Ratio] 33.6 % High 11.5-14.5 [facility] Comment on above: Performed By: #### L IPD2, BMP3, MG3 #### [facility] [employer] [facility] [address] [place] [address] Granulocytes/100 WBC (Bld) 67.3 % Normal 40.0-80.0 [facility] Comment on above: Performed By: #### L IPD2, BMP3, MG3 #### [facility] [address] [place] [address] Hematocrit (Bld) [Volume fraction] 36.4 % Low 40.0-52.0 [facility] Comment on above: Performed By: #### L IPD2, BMP3, MG3 #### [facility] [address] [place] [address] Hemoglobin (Bld) [Mass/Vol] 11.6 g/dL Low 13.0-18.0 [facility] Comment on above: Performed By: #### L IPD2, BMP3, MG3 #### [facility] [address] [place] [address] Lymphocytes (Bld) [#/Vol] 1.2 10*3/uL Normal 1.0-4.3 [facility] Comment on above: Performed By: #### L IPD2, BMP3, MG3 #### [facility] [address] [place] [address] Lymphocytes/100 WBC (Bld) 19.9 % Low 20.0-40.0 [facility] Comment on above: Performed By: #### L IPD2, BMP3, MG3 #### [facility] [address] [place] [address] MCH (RBC) [Entitic mass] 26.7 pg Normal 26.0-34.0 [facility] Comment on above: Performed By: #### L IPD2, BMP3, MG3 #### [facility] [address] [place] [address] MCHC 31.9 % Low 32.0-36.0 [facility] Comment on above: Performed By: #### L IPD2, BMP3, MG3 #### [facility] [address] [place] [address] MCV (RBC) [Entitic vol] 83.5 fL Normal 80.0-98.0 [facility] Comment on above: Performed By: #### L IPD2, BMP3, MG3 #### [facility] [address] [place] [address] Monocytes (Bld) [#/Vol] 0.4 10*3/uL Normal 0.0-0.8 [facility] Comment on above: Performed By: #### L IPD2, BMP3, MG3 #### [facility] [address] [place] [address] Monocytes/100 WBC (Bld) 6.5 % Normal 2.0-10.0 [facility] Comment on above: Performed By: #### L IPD2, BMP3, MG3 #### [facility] [address] [place] [address] Platelet mean volume (Bld) [Entitic vol] 8.6 fL Normal 7.4-10.4 [facility] Comment on above: Performed By: #### L IPD2, BMP3, MG3 #### [facility] [address] [place] [address] Platelets (Bld) [#/Vol] 261 10*3/uL Normal 140-440 [facility] Comment on above: Performed By: #### L IPD2, BMP3, MG3 #### [facility] [address] [place] [address] RBC (Bld) [#/Vol] 4.36 10*6/uL Low 4.40-5.90 [facility] Comment on above: Performed By: #### L IPD2, BMP3, MG3 #### [facility] [address] [place] [address] WBC (Bld) [#/Vol] 6.2 10*3/uL Normal 3.6-10.7 [facility] Comment on above: Performed By: #### L IPD2, BMP3, MG3 #### [facility] [address] [place] [address] Magnesiumon 09-26-2020 Magnesium [Mass/Vol] 1.9 mg/dL Normal 1.6-2.3 [facility] Comment on above: Performed By: #### L IPD2, BMP3, MG3 #### [facility] [address] [place] [address] Magnesium [Mass/Vol] 1.9 mg/dL 1.6 - 2 .3 mg/dL [facility] Work Phone: Metabolic Panelon 09-26-2020 Sodium [Moles/Vol] Slight [facility] Work Phone: Otheron 09-26-2020 Test Performed by [employer], [address] [place] [address] [facility] Work Phone: RBC MORPHOLOGYon 09-26-2020 Anisocytosis Ql (Bld) Marked [facility] Work Phone: RBC morphology finding Nom (Bld) ABNORMAL [facility] Work Phone: Sodium [Moles/Vol] Moderate [facility] Work Phone: Test Performed by [employer], [address] [place], [place] [address] [facility] Work Phone: RBC Morphologyon 09-26-2020 Anisocytosis Ql (Bld) Marked Normal [facility] Comment on above: Performed By: #### L IPD2, BMP3, MG3 #### [employer] [address] [place] [address] Elliptocytes Slight Normal [facility] Comment on above: Performed By: #### L IPD2, BMP3, MG3 #### [facility] [facility] [address] [place] [address] Hypochromia Slight Normal [facility] Comment on above: Performed By: #### L IPD2, BMP3, MG3 #### [facility] [facility] [address] [place] [address] Ovalocytes Slight Normal [facility] Comment on above: Performed By: #### L IPD2, BMP3, MG3 #### [facility] [facility] [address] [place] [address] Poikilocytosis Moderate Normal [facility] Comment on above: Performed By: #### L IPD2, BMP3, MG3 #### [facility] [facility] [address] [place] [address] Polychromasia Slight Normal [facility] Comment on above: Performed By: #### L IPD2, BMP3, MG3 #### [facility] [address] [place] [address] RBC morphology finding Nom (Bld) ABNORMAL Normal [facility] Comment on above: Performed By: #### L IPD2, BMP3, MG3 #### [facility] [address] [place] [address] Schistocytes Slight Normal [facility] Comment on above: Performed By: #### L IPD2, BMP3, MG3 #### [facility] [address] [place] [address] Target Cells Slight Normal [facility] Comment on above: Performed By: #### L IPD2, BMP3, MG3 #### [facility] [address] [place] [address] Basic Metabolic Panelon 03-0 -2020 Calcium [Mass/Vol] 9.0 mg/dL Normal 8.4-10.4 [facility] Comment on above: Performed By: #### L IPD2, BMP3, MG3 #### [facility] [address] [place] [address] Anion gap [Moles/Vol] 7 mmol/L Normal 3-13 [facility] Comment on above: Performed By: #### L IPD2, BMP3, MG3 #### [facility] [address] [place] [address] CO2 [Moles/Vol] 34 mmol/L High 22-30 [facility] Comment on above: Performed By: #### L IPD2, BMP3, MG3 #### [facility] [address] [place] [address] Creatinine [Mass/Vol] 2.12 mg/dL High 0.52-1.25 [facility] Comment on above: Performed By: #### L IPD2, BMP3, MG3 #### [facility] [address] [place] [address] GFR/1.73 sq M.predicted among blacks MDRD (S/P/Bld) [Vol rate/Area] 32.8 mL/min/{1.73_m2} Abnormal >60 [facility] Comment on above: Performed By: #### L IPD2, BMP3, MG3 #### [facility] [address] [place] [address] GFR/1.73 sq M.predicted among non-blacks MDRD (S/P/Bld) [Vol rate/Area] 28.3 mL/min/{1.73_m2} Abnormal >60 [facility] Comment on above: Result Comment: KDIG O guidelines provide the following GFR categories: Stage GFR(ml/min/1.73 m2) Terms G1 >=90 Normal or high G2 60-89 Mildly decreased* G3a 45-59 Mildly to moderately decreased G3b 30-44 Moderately to severely decreased G4 15-29 Severely decreased G5 <15 Kidney failure *Relative to young adult level. In the absence of evidence of kidney damage, neither GFR category G1 nor G2 fulfill the criteria for CKD. The CKD-EPI equation is validated in individuals 18 years of age and older. Currently the best equation for estimating glomerular filtration rate (GFR) from serum creatinine in children is the Bedside Robertson equation. It is less accurate in patients with extremes of muscle mass, restriction of dietary protein, ingestion of creatine, extra-renal metabolism of creatinine, or treatment with medications that affect renal tubular creatinine secretion. Performed By: #### L IPD2, BMP3, MG3 #### [facility] [address] [place] [address] Glucose [Mass/Vol] 126 mg/dL High 70-100 [facility] Comment on above: Performed By: #### L IPD2, BMP3, MG3 #### [facility] [address] [place] [address] Urea nitrogen [Mass/Vol] 38 mg/dL High 7-20 [facility] Comment on above: Performed By: #### L IPD2, BMP3, MG3 #### [facility] [address] [place] [address] Chloride [Moles/Vol] 95 mmol/L Low 98-107 [facility] Comment on above: Performed By: #### L IPD2, BMP3, MG3 #### [facility] [address] [place] [address] Potassium [Moles/Vol] 3.2 mmol/L Low 3.5-5.1 [facility] Comment on above: Performed By: #### L IPD2, BMP3, MG3 #### [facility] [address] [place] [address] Sodium [Moles/Vol] 136 mmol/L Normal 135-145 [facility] Comment on above: Performed By: #### L IPD2, BMP3, MG3 #### [facility] [address] [place] [address] Anion gap [Moles/Vol] 7 mmol/L 3 - 13 mmol/L [facility] Work Phone: Calcium [Mass/Vol] 9.0 mg/dL 8.4 - 10. 4 mg/dL [facility] Work Phone: Chloride [Moles/Vol] 95 mmol/L Low 98 - 10 7 mmol/L [facility] Work Phone: CO2 [Moles/Vol] 34 mmol/L High 22 - 30 mmol/L [facility] Work Phone: Creatinine [Mass/Vol] 2.12 mg/dL High 0.52 - 1.25 mg/dL [facility] Work Phone: EGFR IF NonAfrican Greenlandic 28.3 mL/min Abnormal >60 [facility] Work Phone: Comment on above: KDIGO guidelines pro vide the following GFR categories: Stage GFR(ml/min/1.73 m2) Terms G1 >=90 Normal or high G2 60-89 Mildly decreased* G3a 45-59 Mildly to moderately decreased G3b 30-44 Moderately to severely decreased G4 15-29 Severely decreased G5 <15 Kidney failure *Relative to young adult level. In the absence of evidence of kidney damage, neither GFR category G1 nor G2 fulfill the criteria for CKD. The CKD-EPI equation is validated in individuals 18 years of age and older. Currently the best equation for estimating glomerular filtration rate (GFR) from serum creatinine in children is the Bedside Robertson equation. It is less accurate in patients with extremes of muscle mass, restriction of dietary protein, ingestion of creatine, extra-renal metabolism of creatinine, or treatment with medications that affect renal tubular creatinine secretion. GFR/1.73 sq M predicted among blacks MDRD (S/P/Bld) [Vol rate/Area] 32.8 mL/min/{1.73_m2} Abnormal >60 [facility] Work Phone: Glucose [Mass/Vol] 126 mg/dL High 70 - 100 mg/dL [employer] Work Phone: Interpretation and review of laboratory results Abnormal [employer] Work Phone: Potassium [Moles/Vol] 3.2 mmol/L Low 3.5 - 5.1 mmol/L [facility] Work Phone: Sodium [Moles/Vol] 136 mmol/L 135 - 145 mmol/L [facility] Work Phone: Urea nitrogen [Mass/Vol] 38 mg/dL High 7 - 20 mg/d L [employer] Work Phone: CBC Auto Differentialon 03-0 Absolute Baso # 0.1 10*3/uL 0.0 - 0.2 10*3/uL [employer] Work Phone: Absolute Neut # 3.6 10*3/uL 1.8 - 7.0 10*3/uL [employer] Work Phone: Basophils/100 WBC (Bld) 2.4 % High 0.0 - 2.0 % [employer] Work Phone: Eosinophils (Bld) [#/Vol] 0.3 10*3/uL 0.0 - 0.5 10*3/uL [employer] Work Phone: Eosinophils/100 WBC (Bld) 4.9 % 1.0 - 6.0 % [employer] Work Phone: Erythrocyte distribution width (RBC) [Ratio] 33.5 % High 11.5 - 14.5 % [employer] Work Phone: Granulocytes/100 WBC (Bld) 67.9 % 40.0 - 80.0 % [employer] Work Phone: Hematocrit (Bld) [Volume fraction] 35.0 % Low 40.0 - 52.0 % [employer] Work Phone: Hemoglobin (Bld) [Mass/Vol] 11.1 g/dL Low 13.0 - 18.0 g/dL [employer] Work Phone: Interpretation and review of laboratory results Abnormal [employer] Work Phone: [phone] Lymphocytes (Bld) [#/Vol] 1.0 10*3/uL 1.0 - 4.3 10*3/uL [employer] Work Phone: [phone] Lymphocytes/100 WBC (Bld) 18.0 % Low 20.0 - 40.0 % [employer] Work Phone: MCH (RBC) [Entitic mass] 26.7 pg 26. 0 - 34.0 pg [employer] Work Phone: MCHC (RBC) [Mass/Vol] 31.7 % Low 32.0 - 36.0 % [employer] Work Phone: MCV (RBC) [Entitic vol] 84.2 fL 80.0 - 98.0 fL [employer] Work Phone: [phone] Monocytes (Bld) [#/Vol] 0.4 10*3/uL 0.0 - 0.8 10*3/uL [employer] Work Phone: Monocytes/100 WBC (Bld) 6.8 % 2.0 - 10.0 % [employer] Work Phone: Platelet mean volume (Bld) [Entitic vol] 8.9 fL 7.4 - 10.4 fL [employer] Work Phone: [phone] Platelets (Bld) [#/Vol] 223 10*3/uL 140 - 440 10*3/uL [employer] Work Phone: RBC (Bld) [#/Vol] 4.16 10*6/uL Low 4.40 - 5.9 0 10*6/uL [employer] Work Phone: WBC (Bld) [#/Vol] 5.3 10*3/uL 3.6 - 10.7 10*3/uL [employer] Work Phone: Test Performed by [employer] [facility], [address] [place] [address] [facility] Work Phone: Hemogram w/ Autodiffon 09-25 Abs Baso Cnt 0.1 10*3/uL Normal 0.0-0.2 [facility] Comment on above: Performed By: #### L IPD2, BMP3, MG3 #### [facility] [address] [place] [address] Abs Neutrophile Cnt 3.6 10*3/uL Normal 1.8-7.0 [facility] Comment on above: Performed By: #### L IPD2, BMP3, MG3 #### [facility] [address] [place] [address] Basophils/100 WBC (Bld) 2.4 % High 0.0-2.0 [facility] Comment on above: Performed By: #### L IPD2, BMP3, MG3 #### [facility] [address] [place] [address] Eosinophils (Bld) [#/Vol] 0.3 10*3/uL Normal 0.0-0.5 [facility] Comment on above: Performed By: #### L IPD2, BMP3, MG3 #### [facility] [employer] [facility] [address] [place] [address] Eosinophils/100 WBC (Bld) 4.9 % Normal 1.0-6.0 [facility] Comment on above: Performed By: #### L IPD2, BMP3, MG3 #### [facility] [address] [place] [address] Erythrocyte distribution width (RBC) [Ratio] 33.5 % High 11.5-14.5 [facility] Comment on above: Performed By: #### L IPD2, BMP3, MG3 #### [facility] [employer] [facility] [address] [place] [address] Granulocytes/100 WBC (Bld) 67.9 % Normal 40.0-80.0 [facility] Comment on above: Performed By: #### L IPD2, BMP3, MG3 #### [facility] [employer] [facility] [address] [place] [address] Hematocrit (Bld) [Volume fraction] 35.0 % Low 40.0-52.0 [facility] Comment on above: Performed By: #### L IPD2, BMP3, MG3 #### [facility] [address] [place] [address] Hemoglobin (Bld) [Mass/Vol] 11.1 g/dL Low 13.0-18.0 [facility] Comment on above: Performed By: #### L IPD2, BMP3, MG3 #### [facility] [address] [place] [address] Lymphocytes (Bld) [#/Vol] 1.0 10*3/uL Normal 1.0-4.3 [facility] Comment on above: Performed By: #### L IPD2, BMP3, MG3 #### [facility] [address] [place] [address] Lymphocytes/100 WBC (Bld) 18.0 % Low 20.0-40.0 [facility] Comment on above: Performed By: #### L IPD2, BMP3, MG3 #### [facility] [address] [place] [address] MCH (RBC) [Entitic mass] 26.7 pg Normal 26.0-34.0 [facility] Comment on above: Performed By: #### L IPD2, BMP3, MG3 #### [facility] [address] [place] [address] MCHC 31.7 % Low 32.0-36.0 [facility] Comment on above: Performed By: #### L IPD2, BMP3, MG3 #### [facility] [address] [place] [address] MCV (RBC) [Entitic vol] 84.2 fL Normal 80.0-98.0 [facility] Comment on above: Performed By: #### L IPD2, BMP3, MG3 #### [facility] [address] [place] [address] Monocytes (Bld) [#/Vol] 0.4 10*3/uL Normal 0.0-0.8 [facility] Comment on above: Performed By: #### L IPD2, BMP3, MG3 #### [facility] [address] [place] [address] Monocytes/100 WBC (Bld) 6.8 % Normal 2.0-10.0 [facility] Comment on above: Performed By: #### L IPD2, BMP3, MG3 #### [facility] [address] [place] [address] Platelet mean volume (Bld) [Entitic vol] 8.9 fL Normal 7.4-10.4 [facility] Comment on above: Performed By: #### L IPD2, BMP3, MG3 #### [facility] [address] [place] [address] Platelets (Bld) [#/Vol] 223 10*3/uL Normal 140-440 [facility] Comment on above: Performed By: #### L IPD2, BMP3, MG3 #### [facility] [address] [place] [address] RBC (Bld) [#/Vol] 4.16 10*6/uL Low 4.40-5.90 [facility] Comment on above: Performed By: #### L IPD2, BMP3, MG3 #### [facility] [address] [place] [address] WBC (Bld) [#/Vol] 5.3 10*3/uL Normal 3.6-10.7 [facility] Comment on above: Performed By: #### L IPD2, BMP3, MG3 #### [facility] [address] [place] [address] Magnesiumon 09-25-2020 Magnesium [Mass/Vol] 1.7 mg/dL Normal 1.6-2.3 [facility] Comment on above: Performed By: #### L IPD2, BMP3, MG3 #### [facility] [address] [place] [address] Magnesium [Mass/Vol] 1.7 mg/dL 1.6 - 2 .3 mg/dL [facility] Work Phone: Metabolic Panelon 09-25-2020 Sodium [Moles/Vol] Slight [facility] Work Phone: Sodium [Moles/Vol] Moderate [facility] Work Phone: Otheron 09-25-2020 Test Performed by [employer], [address] [place], [place] [address] [facility] Work Phone: RBC MORPHOLOGYon 09-25-2020 Anisocytosis Ql (Bld) Marked [facility] Work Phone: RBC morphology finding Nom (Bld) ABNORMAL [facility] Work Phone: Test Performed by [employer], [address] [place], [place] [address] [facility] Work Phone: RBC Morphologyon 09-25-2020 Anisocytosis Ql (Bld) Marked Normal [facility] Comment on above: Performed By: #### L IPD2, BMP3, MG3 #### [employer] [facility] [address] [place] [address] Elliptocytes Slight Normal [facility] Comment on above: Performed By: #### L IPD2, BMP3, MG3 #### [employer] [facility] [address] [place] [address] Hypochromia Moderate Normal [facility] Comment on above: Performed By: #### L IPD2, BMP3, MG3 #### [employer] [facility] [address] [place] [address] Microcytosis Slight Normal [facility] Comment on above: Performed By: #### L IPD2, BMP3, MG3 #### [employer] [facility] [address] [place] [address] Ovalocytes Slight Normal [facility] Comment on above: Performed By: #### L IPD2, BMP3, MG3 #### [employer] [facility] [address] [place] [address] Poikilocytosis Moderate Normal [facility] Comment on above: Performed By: #### L IPD2, BMP3, MG3 #### [employer] [facility] [address] [place] [address] Polychromasia Slight Normal [facility] Comment on above: Performed By: #### L IPD2, BMP3, MG3 #### [facility] [address] [place] [address] RBC morphology finding Nom (Bld) ABNORMAL Normal [facility] Comment on above: Performed By: #### L IPD2, BMP3, MG3 #### [facility] [address] [place] [address] Target Cells Slight Normal [facility] Comment on above: Performed By: #### L IPD2, BMP3, MG3 #### [facility] [address] [place] [address] Tear Drop Forms Slight Normal [facility] Comment on above: Performed By: #### L IPD2, BMP3, MG3 #### [facility] [address] [place] [address] Basic Metabolic Panelon 03-0 -2020 Anion gap [Moles/Vol] 8 mmol/L Normal 3-13 [facility] Comment on above: Performed By: #### B GLU #### [facility] [address] [place] [address] Calcium [Mass/Vol] 8.9 mg/dL Normal 8.4-10.4 [facility] Comment on above: Performed By: #### B GLU #### [facility] [address] [place] [address] CO2 [Moles/Vol] 34 mmol/L High 22-30 [facility] Comment on above: Performed By: #### B GLU #### [facility] [address] [place] [address] Glucose [Mass/Vol] 111 mg/dL High 70-100 [facility] Comment on above: Performed By: #### B GLU #### [facility] [address] [place] [address] Urea nitrogen [Mass/Vol] 42 mg/dL High 7-20 [facility] Comment on above: Performed By: #### B GLU #### [facility] [address] [place] [address] Creatinine [Mass/Vol] 2.23 mg/dL High 0.52-1.25 [facility] Comment on above: Performed By: #### B GLU #### [facility] [address] [place] [address] GFR/1.73 sq M.predicted among blacks MDRD (S/P/Bld) [Vol rate/Area] 30.8 mL/min/{1.73_m2} Abnormal >60 [facility] Comment on above: Performed By: #### B GLU #### [facility] [address] [place] [address] GFR/1.73 sq M.predicted among non-blacks MDRD (S/P/Bld) [Vol rate/Area] 26.6 mL/min/{1.73_m2} Abnormal >60 [facility] Comment on above: Result Comment: KDIG O guidelines provide the following GFR categories: Stage GFR(ml/min/1.73 m2) Terms G1 >=90 Normal or high G2 60-89 Mildly decreased* G3a 45-59 Mildly to moderately decreased G3b 30-44 Moderately to severely decreased G4 15-29 Severely decreased G5 <15 Kidney failure *Relative to young adult level. In the absence of evidence of kidney damage, neither GFR category G1 nor G2 fulfill the criteria for CKD. The CKD-EPI equation is validated in individuals 18 years of age and older. Currently the best equation for estimating glomerular filtration rate (GFR) from serum creatinine in children is the Bedside Robertson equation. It is less accurate in patients with extremes of muscle mass, restriction of dietary protein, ingestion of creatine, extra-renal metabolism of creatinine, or treatment with medications that affect renal tubular creatinine secretion. Performed By: #### B GLU #### [facility] [address] [place] [address] Chloride [Moles/Vol] 94 mmol/L Low 98-107 [facility] Comment on above: Performed By: #### B GLU #### [facility] [address] [place] [address] Potassium [Moles/Vol] 3.2 mmol/L Low 3.5-5.1 [facility] Comment on above: Performed By: #### B GLU #### [facility] [address] [place] [address] Sodium [Moles/Vol] 136 mmol/L Normal 135-145 [facility] Comment on above: Performed By: #### B GLU #### [facility] [address] [place] [address] Anion gap [Moles/Vol] 8 mmol/L 3 - 13 mmol/L [facility] Work Phone: Calcium [Mass/Vol] 8.9 mg/dL 8.4 - 10. 4 mg/dL [facility] Work Phone: Chloride [Moles/Vol] 94 mmol/L Low 98 - 10 7 mmol/L [facility] Work Phone: CO2 [Moles/Vol] 34 mmol/L High 22 - 30 mmol/L [facility] Work Phone: Creatinine [Mass/Vol] 2.23 mg/dL High 0.52 - 1.25 mg/dL [facility] Work Phone: EGFR IF NonAfrican Greenlandic 26.6 mL/min Abnormal >60 [facility] Work Phone: Comment on above: KDIGO guidelines pro vide the following GFR categories: Stage GFR(ml/min/1.73 m2) Terms G1 >=90 Normal or high G2 60-89 Mildly decreased* G3a 45-59 Mildly to moderately decreased G3b 30-44 Moderately to severely decreased G4 15-29 Severely decreased G5 <15 Kidney failure *Relative to young adult level. In the absence of evidence of kidney damage, neither GFR category G1 nor G2 fulfill the criteria for CKD. The CKD-EPI equation is validated in individuals 18 years of age and older. Currently the best equation for estimating glomerular filtration rate (GFR) from serum creatinine in children is the Bedside Robertson equation. It is less accurate in patients with extremes of muscle mass, restriction of dietary protein, ingestion of creatine, extra-renal metabolism of creatinine, or treatment with medications that affect renal tubular creatinine secretion. GFR/1.73 sq M predicted among blacks MDRD (S/P/Bld) [Vol rate/Area] 30.8 mL/min/{1.73_m2} Abnormal >60 [facility] Work Phone: Glucose [Mass/Vol] 111 mg/dL High 70 - 100 mg/dL [facility] Work Phone: Interpretation and review of laboratory results Abnormal [facility] Work Phone: Potassium [Moles/Vol] 3.2 mmol/L Low 3.5 - 5.1 mmol/L [employer] Work Phone: Sodium [Moles/Vol] 136 mmol/L 135 - 145 mmol/L [employer] Work Phone: Urea nitrogen [Mass/Vol] 42 mg/dL High 7 - 20 mg/d L [employer] Work Phone: Brain Natriuretic Peptideon 09-24-2020 Interpretation and review of laboratory results Abnormal [employer] Work Phone: Natriuretic peptide B (Bld) [Mass/Vol] 62506 pg/mL High 0 - 450 pg/mL [employer] Work Phone: Test Performed by [employer], [address] [place] [id number] [employer] Work Phone: CBC Auto Differentialon 03-0 Absolute Baso # 0.2 10*3/uL 0.0 - 0.2 10*3/uL [employer] Work Phone: Absolute Neut # 3.9 10*3/uL 1.8 - 7.0 10*3/uL [employer] Work Phone: Basophils/100 WBC (Bld) 3.1 % High 0.0 - 2.0 % [employer] Work Phone: Eosinophils (Bld) [#/Vol] 0.3 10*3/uL 0.0 - 0.5 10*3/uL [employer] Work Phone: Eosinophils/100 WBC (Bld) 4.9 % 1.0 - 6.0 % [employer] Work Phone: Erythrocyte distribution width (RBC) [Ratio] 33.7 % High 11.5 - 14.5 % [employer] Work Phone: Granulocytes/100 WBC (Bld) 68.1 % 40.0 - 80.0 % [employer] Work Phone: Hematocrit (Bld) [Volume fraction] 32.6 % Low 40.0 - 52.0 % [employer] Work Phone: Hemoglobin (Bld) [Mass/Vol] 10.3 g/dL Low 13.0 - 18.0 g/dL [employer] Work Phone: Interpretation and review of laboratory results Abnormal [employer] Work Phone: Lymphocytes (Bld) [#/Vol] 1.0 10*3/uL 1.0 - 4.3 10*3/uL [employer] Work Phone: Lymphocytes/100 WBC (Bld) 17.7 % Low 20.0 - 40.0 % [employer] Work Phone: MCH (RBC) [Entitic mass] 26.4 pg 26. 0 - 34.0 pg [employer] Work Phone: MCHC (RBC) [Mass/Vol] 31.7 % Low 32.0 - 36.0 % [employer] Work Phone: MCV (RBC) [Entitic vol] 83.4 fL 80.0 - 98.0 fL [employer] Work Phone: Monocytes (Bld) [#/Vol] 0.4 10*3/uL 0.0 - 0.8 10*3/uL [employer] Work Phone: Monocytes/100 WBC (Bld) 6.2 % 2.0 - 10.0 % [employer] Work Phone: Platelet mean volume (Bld) [Entitic vol] 9.0 fL 7.4 - 10.4 fL [employer] Work Phone: Platelets (Bld) [#/Vol] 230 10*3/uL 140 - 440 10*3/uL [employer] Work Phone: RBC (Bld) [#/Vol] 3.91 10*6/uL Low 4.40 - 5.9 0 10*6/uL [employer] Work Phone: WBC (Bld) [#/Vol] 5.7 10*3/uL 3.6 - 10.7 10*3/uL [employer] Work Phone: Test Performed by [facility], [address] [place] [address] [facility] Work Phone: Hemogram w/ Autodiffon 09-24 Abs Baso Cnt 0.2 10*3/uL Normal 0.0-0.2 [facility] Comment on above: Performed By: #### B GLU #### [facility] [address] [place] [address] Abs Neutrophile Cnt 3.9 10*3/uL Normal 1.8-7.0 [facility] Comment on above: Performed By: #### B GLU #### [facility] [address] [place] [address] Basophils/100 WBC (Bld) 3.1 % High 0.0-2.0 [facility] Comment on above: Performed By: #### B GLU #### [facility] [address] [place] [address] Eosinophils (Bld) [#/Vol] 0.3 10*3/uL Normal 0.0-0.5 [facility] Comment on above: Performed By: #### B GLU #### [facility] [address] [place] [address] Eosinophils/100 WBC (Bld) 4.9 % Normal 1.0-6.0 [facility] Comment on above: Performed By: #### B GLU #### [facility] [address] [place] [address] Erythrocyte distribution width (RBC) [Ratio] 33.7 % High 11.5-14.5 [facility] Comment on above: Performed By: #### B GLU #### [facility] [address] [place] [address] Granulocytes/100 WBC (Bld) 68.1 % Normal 40.0-80.0 [facility] Comment on above: Performed By: #### B GLU #### [facility] [address] [place] [address] Hematocrit (Bld) [Volume fraction] 32.6 % Low 40.0-52.0 [facility] Comment on above: Performed By: #### B GLU #### [facility] [address] [place] [address] Hemoglobin (Bld) [Mass/Vol] 10.3 g/dL Low 13.0-18.0 [facility] Comment on above: Performed By: #### B GLU #### [facility] [address] [place] [address] Lymphocytes (Bld) [#/Vol] 1.0 10*3/uL Normal 1.0-4.3 [facility] Comment on above: Performed By: #### B GLU #### [facility] [address] [place] [address] Lymphocytes/100 WBC (Bld) 17.7 % Low 20.0-40.0 [facility] Comment on above: Performed By: #### B GLU #### [facility] [address] [place] [address] MCH (RBC) [Entitic mass] 26.4 pg Normal 26.0-34.0 [facility] Comment on above: Performed By: #### B GLU #### [facility] [address] [place] [address] MCHC 31.7 % Low 32.0-36.0 [facility] Comment on above: Performed By: #### B GLU #### [facility] [address] [place] [address] MCV (RBC) [Entitic vol] 83.4 fL Normal 80.0-98.0 [facility] Comment on above: Performed By: #### B GLU #### [facility] [address] [place] [address] Monocytes (Bld) [#/Vol] 0.4 10*3/uL Normal 0.0-0.8 [facility] Comment on above: Performed By: #### B GLU #### [facility] [address] [place] [address] Monocytes/100 WBC (Bld) 6.2 % Normal 2.0-10.0 [facility] Comment on above: Performed By: #### B GLU #### [facility] [address] [place] [address] Platelet mean volume (Bld) [Entitic vol] 9.0 fL Normal 7.4-10.4 [facility] Comment on above: Performed By: #### B GLU #### [facility] [address] [place] [address] Platelets (Bld) [#/Vol] 230 10*3/uL Normal 140-440 [facility] Comment on above: Performed By: #### B GLU #### [facility] [address] [place] [address] RBC (Bld) [#/Vol] 3.91 10*6/uL Low 4.40-5.90 [facility] Comment on above: Performed By: #### B GLU #### [facility] [address] [place] [address] WBC (Bld) [#/Vol] 5.7 10*3/uL Normal 3.6-10.7 [facility] Comment on above: Performed By: #### B GLU #### [facility] [address] [place] [address] Magnesiumon 09-24-2020 Magnesium [Mass/Vol] 1.8 mg/dL Normal 1.6-2.3 [facility] Comment on above: Performed By: #### B GLU #### [facility] [address] [place] [address] Magnesium [Mass/Vol] 1.8 mg/dL 1.6 - 2 .3 mg/dL [facility] Work Phone: Metabolic Panelon 09-24-2020 Sodium [Moles/Vol] Slight [facility] Work Phone: NT pro BNPon 09-24-2020 Natriuretic peptide B (Bld) [Mass/Vol] 37746 pg/mL High 0-450 [facility] Comment on above: Performed By: #### B GLU #### [facility] [address] [place] [address] Otheron 09-24-2020 Test Performed by [facility], [address] [place] [address] [facility] Work Phone: RBC MORPHOLOGYon 09-24-2020 Anisocytosis Ql (Bld) Slight [facility] Work Phone: RBC morphology finding Nom (Bld) ABNORMAL [facility] Work Phone: Sodium [Moles/Vol] Moderate [facility] Work Phone: Test Performed by [facility] [employer] [facility], [address] [place] [address] [facility] Work Phone: RBC Morphologyon 09-24-2020 Acanthocytes Slight Normal [facility] Comment on above: Performed By: #### B GLU #### [facility] [address] [place] [address] Anisocytosis Ql (Bld) Slight Normal [facility] Comment on above: Performed By: #### B GLU #### [facility] [address] [place] [address] Elliptocytes Slight Normal [facility] Comment on above: Performed By: #### B GLU #### [facility] [address] [place] [address] Hypochromia Moderate Normal [facility] Comment on above: Performed By: #### B GLU #### [facility] [address] [place] [address] Macrocytosis Slight Normal [facility] Comment on above: Performed By: #### B GLU #### [facility] [address] [place] [address] Poikilocytosis Slight Normal [facility] Comment on above: Performed By: #### B GLU #### [facility] [address] [place] [address] [facility] Comment on above: Performed By: #### B GLU #### [facility] [address] [place] [address] RBC morphology finding Nom (Bld) ABNORMAL Normal [facility] Comment on above: Performed By: #### B GLU #### [facility] [address] [place] [address] Basic Metabolic Panelon Anion gap [Moles/Vol] 10 mmol/L Normal 3-13 [facility] Comment on above: Performed By: #### L IPD2, BMP3, MG3 #### [facility] [address] [place] [address] Calcium [Mass/Vol] 9.0 mg/dL Normal 8.4-10.4 [facility] Comment on above: Performed By: #### L IPD2, BMP3, MG3 #### [facility] [address] [place] [address] CO2 [Moles/Vol] 30 mmol/L Normal 22-30 [facility] Comment on above: Performed By: #### L IPD2, BMP3, MG3 #### [facility] [address] [place] [address] Glucose [Mass/Vol] 110 mg/dL High 70-100 [facility] Comment on above: Performed By: #### L IPD2, BMP3, MG3 #### [facility] [address] [place] [address] Urea nitrogen [Mass/Vol] 42 mg/dL High 7-20 [facility] Comment on above: Performed By: #### L IPD2, BMP3, MG3 #### [facility] [address] [place] [address] Creatinine [Mass/Vol] 2.38 mg/dL High 0.52-1.25 [facility] Comment on above: Performed By: #### L IPD2, BMP3, MG3 #### [facility] [address] [place] [address] GFR/1.73 sq M.predicted among blacks MDRD (S/P/Bld) [Vol rate/Area] 28.5 mL/min/{1.73_m2} Abnormal >60 [facility] Comment on above: Performed By: #### L IPD2, BMP3, MG3 #### [facility] [address] [place] [address] GFR/1.73 sq M.predicted among non-blacks MDRD (S/P/Bld) [Vol rate/Area] 24.6 mL/min/{1.73_m2} Abnormal >60 [facility] Comment on above: Result Comment: KDIG O guidelines provide the following GFR categories: Stage GFR(ml/min/1.73 m2) Terms G1 >=90 Normal or high G2 60-89 Mildly decreased* G3a 45-59 Mildly to moderately decreased G3b 30-44 Moderately to severely decreased G4 15-29 Severely decreased G5 <15 Kidney failure *Relative to young adult level. In the absence of evidence of kidney damage, neither GFR category G1 nor G2 fulfill the criteria for CKD. The CKD-EPI equation is validated in individuals 18 years of age and older. Currently the best equation for estimating glomerular filtration rate (GFR) from serum creatinine in children is the Bedside Robertson equation. It is less accurate in patients with extremes of muscle mass, restriction of dietary protein, ingestion of creatine, extra-renal metabolism of creatinine, or treatment with medications that affect renal tubular creatinine secretion. Performed By: #### L IPD2, BMP3, MG3 #### [facility] [address] [place] [address] Potassium [Moles/Vol] 3.5 mmol/L Normal 3.5-5.1 [facility] Comment on above: Result Comment: Slig htly hemolysed, interpret with caution. Performed By: #### L IPD2, BMP3, MG3 #### [facility] [address] [place] [address] Sodium [Moles/Vol] 137 mmol/L Normal 135-145 [facility] Comment on above: Performed By: #### L IPD2, BMP3, MG3 #### [facility] [address] [place] [address] Chloride [Moles/Vol] 97 mmol/L Low 98-107 [facility] Comment on above: Performed By: #### L IPD2, BMP3, MG3 #### [facility] [address] [place] [address] Anion gap [Moles/Vol] 10 mmol/L 3 - 13 mmol/L [facility] Work Phone: Calcium [Mass/Vol] 9.0 mg/dL 8.4 - 10. 4 mg/dL [employer] Work Phone: Chloride [Moles/Vol] 97 mmol/L Low 98 - 10 7 mmol/L [facility] Work Phone: CO2 [Moles/Vol] 30 mmol/L 22 - 30 mmol/L [facility] Work Phone: Creatinine [Mass/Vol] 2.38 mg/dL High 0.52 - 1.25 mg/dL [employer] Work Phone: EGFR IF NonAfrican Green[place]ic 24.6 mL/min Abnormal >60 [employer] Work Phone: Comment on above: KDIGO guidelines pro vide the following GFR categories: Stage GFR(ml/min/1.73 m2) Terms G1 >=90 Normal or high G2 60-89 Mildly decreased* G3a 45-59 Mildly to moderately decreased G3b 30-44 Moderately to severely decreased G4 15-29 Severely decreased G5 <15 Kidney failure *Relative to young adult level. In the absence of evidence of kidney damage, neither GFR category G1 nor G2 fulfill the criteria for CKD. The CKD-EPI equation is validated in individuals 18 years of age and older. Currently the best equation for estimating glomerular filtration rate (GFR) from serum creatinine in children is the Bedside Robertson equation. It is less accurate in patients with extremes of muscle mass, restriction of dietary protein, ingestion of creatine, extra-renal metabolism of creatinine, or treatment with medications that affect renal tubular creatinine secretion. GFR/1.73 sq M predicted among blacks MDRD (S/P/Bld) [Vol rate/Area] 28.5 mL/min/{1.73_m2} Abnormal >60 [facility] Work Phone: Glucose [Mass/Vol] 110 mg/dL High 70 - 100 mg/dL [employer] Work Phone: Interpretation and review of laboratory results Abnormal [employer] Work Phone: Potassium [Moles/Vol] 3.5 mmol/L 3.5 - 5.1 mmol/L [employer] Work Phone: Comment on above: Slightly hemolysed, interpret with caution. Sodium [Moles/Vol] 137 mmol/L 135 - 145 mmol/L [employer] Work Phone: Urea nitrogen [Mass/Vol] 42 mg/dL High 7 - 20 mg/d L [employer] Work Phone: CBC Auto Differentialon 03-0 Absolute Baso # 0.2 10*3/uL 0.0 - 0.2 10*3/uL [employer] Work Phone: Absolute Neut # 4.0 10*3/uL 1.8 - 7.0 10*3/uL [facility] Work Phone: Basophils/100 WBC (Bld) 2.6 % High 0.0 - 2.0 % [employer] Work Phone: Eosinophils (Bld) [#/Vol] 0.2 10*3/uL 0.0 - 0.5 10*3/uL [facility] Work Phone: Eosinophils/100 WBC (Bld) 3.5 % 1.0 - 6.0 % [employer] Work Phone: Erythrocyte distribution width (RBC) [Ratio] 33.2 % High 11.5 - 14.5 % [employer] Work Phone: Granulocytes/100 WBC (Bld) 67.9 % 40.0 - 80.0 % [employer] Work Phone: Hematocrit (Bld) [Volume fraction] 34.2 % Low 40.0 - 52.0 % [employer] Work Phone: Hemoglobin (Bld) [Mass/Vol] 11.0 g/dL Low 13.0 - 18.0 g/dL [employer] Work Phone: Interpretation and review of laboratory results Abnormal [employer] Work Phone: Lymphocytes (Bld) [#/Vol] 1.2 10*3/uL 1.0 - 4.3 10*3/uL [facility] Work Phone: Lymphocytes/100 WBC (Bld) 19.7 % Low 20.0 - 40.0 % [employer] Work Phone: MCH (RBC) [Entitic mass] 26.6 pg 26. 0 - 34.0 pg [facility] Work Phone: MCHC (RBC) [Mass/Vol] 32.1 % 32.0 - 36.0 % [employer] Work Phone: MCV (RBC) [Entitic vol] 82.6 fL 80.0 - 98.0 fL [facility] Work Phone: Monocytes (Bld) [#/Vol] 0.4 10*3/uL 0.0 - 0.8 10*3/uL [employer] Work Phone: Monocytes/100 WBC (Bld) 6.3 % 2.0 - 10.0 % [employer] Work Phone: Platelet mean volume (Bld) [Entitic vol] 8.5 fL 7.4 - 10.4 fL [employer] Work Phone: Platelets (Bld) [#/Vol] 245 10*3/uL 140 - 440 10*3/uL [employer] Work Phone: Comment on above: Clumped Platelets Revised: Comment was added, verified by TNM at 05:20 on 09/23/20 RBC (Bld) [#/Vol] 4.14 10*6/uL Low 4.40 - 5.9 0 10*6/uL [employer] Work Phone: WBC (Bld) [#/Vol] 5.9 10*3/uL 3.6 - 10.7 10*3/uL [employer] Work Phone: Test Performed by [employer], [address] [place], [place] [address] [employer] Work Phone: Hemogram w/ Autodiffon 09-23 Platelets (Bld) [#/Vol] 245 10*3/uL Normal 140-440 [facility] Comment on above: Result Comment: Clum ped Platelets Revised: Comment was added, verified by TNM at 05:20 on 09/23/20 Performed By: #### B NP3, TROPN, BMP3, HEMDF #### [employer] [address] [place] [address] Abs Baso Cnt 0.2 10*3/uL Normal 0.0-0.2 [email or web address] Comment on above: Performed By: #### B NP3, TROPN, BMP3, HEMDF #### [employer] [address] [place] [address] Abs Neutrophile Cnt 4.0 10*3/uL Normal 1.8-7.0 [facility] Comment on above: Performed By: #### B NP3, TROPN, BMP3, HEMDF #### [facility] [address] [place] [address] Basophils/100 WBC (Bld) 2.6 % High 0.0-2.0 [facility] Comment on above: Performed By: #### B NP3, TROPN, BMP3, HEMDF #### [facility] [address] [place] [address] Eosinophils (Bld) [#/Vol] 0.2 10*3/uL Normal 0.0-0.5 [facility] Comment on above: Performed By: #### B NP3, TROPN, BMP3, HEMDF #### [facility] [address] [place] [address] Eosinophils/100 WBC (Bld) 3.5 % Normal 1.0-6.0 [facility] Comment on above: Performed By: #### B NP3, TROPN, BMP3, HEMDF #### [facility] [address] [place] [address] Erythrocyte distribution width (RBC) [Ratio] 33.2 % High 11.5-14.5 [facility] Comment on above: Performed By: #### B NP3, TROPN, BMP3, HEMDF #### [facility] [address] [place] [address] Granulocytes/100 WBC (Bld) 67.9 % Normal 40.0-80.0 [facility] Comment on above: Performed By: #### B NP3, TROPN, BMP3, HEMDF #### [facility] [address] [place] [address] Hematocrit (Bld) [Volume fraction] 34.2 % Low 40.0-52.0 [facility] Comment on above: Performed By: #### B NP3, TROPN, BMP3, HEMDF #### [facility] [address] [place] [address] Hemoglobin (Bld) [Mass/Vol] 11.0 g/dL Low 13.0-18.0 [facility] Comment on above: Performed By: #### B NP3, TROPN, BMP3, HEMDF #### [facility] [address] [place] [address] Lymphocytes (Bld) [#/Vol] 1.2 10*3/uL Normal 1.0-4.3 [facility] Comment on above: Performed By: #### B NP3, TROPN, BMP3, HEMDF #### [facility] [address] [place] [address] Lymphocytes/100 WBC (Bld) 19.7 % Low 20.0-40.0 [facility] Comment on above: Performed By: #### B NP3, TROPN, BMP3, HEMDF #### [facility] [address] [place] [address] MCH (RBC) [Entitic mass] 26.6 pg Normal 26.0-34.0 [facility] Comment on above: Performed By: #### B NP3, TROPN, BMP3, HEMDF #### [facility] [address] [place] [address] MCHC 32.1 % Normal 32.0-36.0 [facility] Comment on above: Performed By: #### B NP3, TROPN, BMP3, HEMDF #### [facility] [address] [place] [address] MCV (RBC) [Entitic vol] 82.6 fL Normal 80.0-98.0 [facility] Comment on above: Performed By: #### B NP3, TROPN, BMP3, HEMDF #### [facility] [address] [place] [address] Monocytes (Bld) [#/Vol] 0.4 10*3/uL Normal 0.0-0.8 [facility] Comment on above: Performed By: #### B NP3, TROPN, BMP3, HEMDF #### [facility] [address] [place] [address] Monocytes/100 WBC (Bld) 6.3 % Normal 2.0-10.0 [facility] Comment on above: Performed By: #### B NP3, TROPN, BMP3, HEMDF #### [facility] [address] [place] [address] Platelet mean volume (Bld) [Entitic vol] 8.5 fL Normal 7.4-10.4 [facility] Comment on above: Performed By: #### B NP3, TROPN, BMP3, HEMDF #### [facility] [address] [place] [address] RBC (Bld) [#/Vol] 4.14 10*6/uL Low 4.40-5.90 [facility] Comment on above: Performed By: #### B NP3, TROPN, BMP3, HEMDF #### [facility] [address] [place] [address] WBC (Bld) [#/Vol] 5.9 10*3/uL Normal 3.6-10.7 [facility] Comment on above: Performed By: #### B NP3, TROPN, BMP3, HEMDF #### [facility] [address] [place] [address] Hepatic Functionon 1 ALP [Catalytic activity/Vol] 104 U/L Normal 38-126 [facility] Comment on above: Result Comment: Slig htly hemolysed, interpret with caution. Performed By: #### B NP3, TROPN, BMP3, HEMDF #### [facility] [address] [place] [address] ALT [Catalytic activity/Vol] 27 U/L Normal 0-49 [facility] Comment on above: Result Comment: The ALT test is performed by an updated assay method. Please note that the reference intervals have been changed and are now sex specific. Performed By: #### B NP3, TROPN, BMP3, HEMDF #### [facility] [address] [place] [address] AST [Catalytic activity/Vol] 56 U/L High 15-46 [facility] Comment on above: Performed By: #### B NP3, TROPN, BMP3, HEMDF #### [facility] [address] [place] [address] Bilirubin [Mass/Vol] 1.9 mg/dL High 0.2-1.3 [facility] Comment on above: Performed By: #### B NP3, TROPN, BMP3, HEMDF #### [facility] [address] [place] [address] Bilirubin.indirect [Mass/Vol] 0.0 mg/dL Normal 0.0-0.3 [facility] Comment on above: Performed By: #### B NP3, TROPN, BMP3, HEMDF #### [facility] [address] [place] [address] Protein [Mass/Vol] 6.6 g/dL Normal 6.3-8.2 [facility] Comment on above: Performed By: #### B NP3, TROPN, BMP3, HEMDF #### [facility] [address] [place] [address] Albumin [Mass/Vol] 3.6 g/dL Normal 3.5-5.0 [facility] Comment on above: Performed By: #### B NP3, TROPN, BMP3, HEMDF #### [facility] [address] [place] [address] Hepatic Function Panelon Albumin [Mass/Vol] 3.6 g/dL 3.5 - 5.0 g/dL [facility] Work Phone: ALP [Catalytic activity/Vol] 104 U/L 38 - 126 U/L [facility] Work Phone: Comment on above: Slightly hemolysed, interpret with caution. ALT [Catalytic activity/Vol] 27 U/L 0 - 49 U/L [facility] Work Phone: Comment on above: The ALT test is perf ormed by an updated assay method. Please note that the reference intervals have been changed and are now sex specific. AST [Catalytic activity/Vol] 56 U/L High 15 - 46 U/L [facility] Work Phone: Bilirubin Ql (U) 1.9 mg/dL High 0.2 - 1.3 mg/dL [facility] Work Phone: Bilirubin.direct [Mass/Vol] 0.0 mg/dL 0.0 - 0.3 mg/dL [facility] Work Phone: Interpretation and review of laboratory results Abnormal [facility] Work Phone: [phone] Protein [Mass/Vol] 6.6 g/dL 6.3 - 8.2 g/dL [facility] Work Phone: [phone] Test Performed by [employer], [address] [place], [place] [address] [facility] Work Phone: [phone] Magnesiumon 09-23-2020 Magnesium [Mass/Vol] 2.0 mg/dL Normal 1.6-2.3 [facility] [employer] Comment on above: Performed By: #### L IPD2, BMP3, MG3 #### [employer] [address] [place] [address] Magnesium [Mass/Vol] 2.0 mg/dL 1.6 - 2 .3 mg/dL [facility] Work Phone: [phone] Metabolic Panelon 09-23-2020 Sodium [Moles/Vol] Slight [facility] Work Phone: [phone] Sodium [Moles/Vol] Moderate [facility] Work Phone: [phone] Otheron 09-23-2020 Test Performed by [employer], [address] [place], [place] [address] [facility] Work Phone: [phone] RBC MORPHOLOGYon 09-23-2020 Anisocytosis Ql (Bld) Marked [facility] Work Phone: [phone] RBC morphology finding Nom (Bld) ABNORMAL [facility] Work Phone: [phone] Sodium [Moles/Vol] Present [facility] Work Phone: [phone] Test Performed by [employer], [address] [place], [place] [address] [facility] Work Phone: [phone] RBC Morphologyon 09-23-2020 Acanthocytes Slight Normal [facility] [employer] Comment on above: Performed By: #### B NP3, TROPN, BMP3, HEMDF #### [employer] [address] [place] [address] Anisocytosis Ql (Bld) Marked Normal [facility] Comment on above: Performed By: #### B NP3, TROPN, BMP3, HEMDF #### [facility] [address] [place] [address] Pawlet Cells Slight Normal [facility] Comment on above: Performed By: #### B NP3, TROPN, BMP3, HEMDF #### [facility] [address] [place] [address] Dimorphic RBCs Present Normal [facility] Comment on above: Performed By: #### B NP3, TROPN, BMP3, HEMDF #### [facility] [address] [place] [address] Elliptocytes Slight Normal [facility] Comment on above: Performed By: #### B NP3, TROPN, BMP3, HEMDF #### [facility] [address] [place] [address] Hypochromia Moderate Normal [facility] Comment on above: Performed By: #### B NP3, TROPN, BMP3, HEMDF #### [facility] [address] [place] [address] Ovalocytes Slight Normal [facility] Comment on above: Performed By: #### B NP3, TROPN, BMP3, HEMDF #### [facility] [address] [place] [address] Poikilocytosis Moderate Normal [facility] Comment on above: Performed By: #### B NP3, TROPN, BMP3, HEMDF #### [facility] [address] [place] [address] Polychromasia Slight Normal [facility] Comment on above: Performed By: #### B NP3, TROPN, BMP3, HEMDF #### [facility] [address] [place] [address] RBC morphology finding Nom (Bld) ABNORMAL Normal [facility] Comment on above: Performed By: #### B NP3, TROPN, BMP3, HEMDF #### [facility] [address] [place] [address] Schistocytes Slight Normal [facility] Comment on above: Performed By: #### B NP3, TROPN, BMP3, HEMDF #### [facility] [address] [place] [address] Target Cells Slight Normal [facility] Comment on above: Performed By: #### B NP3, TROPN, BMP3, HEMDF #### [facility] [address] [place] [address] Add On Lab Teston 09-22-2020 Sodium [Moles/Vol] Accepted [facility] Work Phone: Comment on above: Specimen available & acceptable for analysis. Test Performed by [facility], [address] [place] [address] [facility] Work Phone: Add on test from HISon 09-22 Add on test from HIS Accepted Normal [facility] Comment on above: Result Comment: Spec imen available & acceptable for analysis. Performed By: #### B NP3, TROPN, BMP3, HEMDF #### [facility] [address] [place] [address] Basic Metabolic Panelon Anion gap [Moles/Vol] 10 mmol/L Normal 3-13 [facility] Comment on above: Order Comment: SLIGH T HEMOLYSIS Performed By: #### B GLU #### [facility] [address] [place] [address] Calcium [Mass/Vol] 8.1 mg/dL Low 8.4-10.4 [facility] Comment on above: Order Comment: SLIGH T HEMOLYSIS Performed By: #### B GLU #### [facility] [address] [place] [address] CO2 [Moles/Vol] 26 mmol/L Normal 22-30 [facility] Comment on above: Order Comment: SLIGH T HEMOLYSIS Performed By: #### B GLU #### [facility] [address] [place] [address] Glucose [Mass/Vol] 99 mg/dL Normal 70-100 [facility] Comment on above: Order Comment: SLIGH T HEMOLYSIS Performed By: #### B GLU #### [facility] [address] [place] [address] Urea nitrogen [Mass/Vol] 38 mg/dL High 7-20 [facility] Comment on above: Order Comment: SLIGH T HEMOLYSIS Performed By: #### B GLU #### [facility] [employer] [facility] [address] [place] [address] Creatinine [Mass/Vol] 2.24 mg/dL High 0.52-1.25 [facility] Comment on above: Order Comment: SLIGH T HEMOLYSIS Performed By: #### B GLU #### [facility] [address] [place] [address] GFR/1.73 sq M.predicted among blacks MDRD (S/P/Bld) [Vol rate/Area] 30.7 mL/min/{1.73_m2} Abnormal >60 [facility] Comment on above: Order Comment: SLIGH T HEMOLYSIS Performed By: #### B GLU #### [facility] [address] [place] [address] GFR/1.73 sq M.predicted among non-blacks MDRD (S/P/Bld) [Vol rate/Area] 26.4 mL/min/{1.73_m2} Abnormal >60 [facility] Comment on above: Order Comment: SLIGH T HEMOLYSIS Result Comment: KDIG O guidelines provide the following GFR categories: Stage GFR(ml/min/1.73 m2) Terms G1 >=90 Normal or high G2 60-89 Mildly decreased* G3a 45-59 Mildly to moderately decreased G3b 30-44 Moderately to severely decreased G4 15-29 Severely decreased G5 <15 Kidney failure *Relative to young adult level. In the absence of evidence of kidney damage, neither GFR category G1 nor G2 fulfill the criteria for CKD. The CKD-EPI equation is validated in individuals 18 years of age and older. Currently the best equation for estimating glomerular filtration rate (GFR) from serum creatinine in children is the Bedside Robertson equation. It is less accurate in patients with extremes of muscle mass, restriction of dietary protein, ingestion of creatine, extra-renal metabolism of creatinine, or treatment with medications that affect renal tubular creatinine secretion. Performed By: #### B GLU #### [facility] [employer] [facility] [address] [place] [address] Potassium [Moles/Vol] 3.8 mmol/L Normal 3.5-5.1 [facility] Comment on above: Order Comment: SLIGH T HEMOLYSIS Performed By: #### B GLU #### [facility] [address] [place] [address] Chloride [Moles/Vol] 102 mmol/L Normal 98-107 [facility] Comment on above: Order Comment: SLIGH T HEMOLYSIS Performed By: #### B GLU #### [facility] [address] [place] [address] Sodium [Moles/Vol] 139 mmol/L Normal 135-145 [facility] Comment on above: Order Comment: SLIGH T HEMOLYSIS Performed By: #### B GLU #### [facility] [address] [place] [address] Anion gap [Moles/Vol] 10 mmol/L 3 - 13 mmol/L [facility] Work Phone: Calcium [Mass/Vol] 8.1 mg/dL Low 8.4 - 10. 4 mg/dL [facility] Work Phone: Chloride [Moles/Vol] 102 mmol/L 98 - 10 7 mmol/L [facility] Work Phone: CO2 [Moles/Vol] 26 mmol/L 22 - 30 mmol/L [facility] Work Phone: Creatinine [Mass/Vol] 2.24 mg/dL High 0.52 - 1.25 mg/dL [facility] Work Phone: EGFR IF NonAfrican Greenlandic 26.4 mL/min Abnormal >60 [facility] Work Phone: Comment on above: KDIGO guidelines pro vide the following GFR categories: Stage GFR(ml/min/1.73 m2) Terms G1 >=90 Normal or high G2 60-89 Mildly decreased* G3a 45-59 Mildly to moderately decreased G3b 30-44 Moderately to severely decreased G4 15-29 Severely decreased G5 <15 Kidney failure *Relative to young adult level. In the absence of evidence of kidney damage, neither GFR category G1 nor G2 fulfill the criteria for CKD. The CKD-EPI equation is validated in individuals 18 years of age and older. Currently the best equation for estimating glomerular filtration rate (GFR) from serum creatinine in children is the Bedside Robertson equation. It is less accurate in patients with extremes of muscle mass, restriction of dietary protein, ingestion of creatine, extra-renal metabolism of creatinine, or treatment with medications that affect renal tubular creatinine secretion. GFR/1.73 sq M predicted among blacks MDRD (S/P/Bld) [Vol rate/Area] 30.7 mL/min/{1.73_m2} Abnormal >60 [employer] Work Phone: Glucose [Mass/Vol] 99 mg/dL 70 - 100 mg/dL [employer] Work Phone: Potassium [Moles/Vol] 3.8 mmol/L 3.5 - 5.1 mmol/L [employer] Work Phone: Sodium [Moles/Vol] 139 mmol/L 135 - 145 mmol/L [employer] Work Phone: Urea nitrogen [Mass/Vol] 38 mg/dL High 7 - 20 mg/d L [employer] Work Phone: CBCon 09-22-2020 Erythrocyte distribution width (RBC) [Ratio] 34.1 % High 11.5 - 14.5 % [employer] Work Phone: Hematocrit (Bld) [Volume fraction] 33.6 % Low 40.0 - 52.0 % [employer] Work Phone: Hemoglobin (Bld) [Mass/Vol] 10.6 g/dL Low 13.0 - 18.0 g/dL [employer] Work Phone: Interpretation and review of laboratory results Abnormal [employer] Work Phone: MCH (RBC) [Entitic mass] 26.2 pg 26. 0 - 34.0 pg [employer] Work Phone: MCHC (RBC) [Mass/Vol] 31.6 % Low 32.0 - 36.0 % [employer] Work Phone: MCV (RBC) [Entitic vol] 82.9 fL 80.0 - 98.0 fL [employer] Work Phone: Platelet mean volume (Bld) [Entitic vol] 8.5 fL 7.4 - 10.4 fL [employer] Work Phone: Platelets (Bld) [#/Vol] 207 10*3/uL 140 - 440 10*3/uL [employer] Work Phone: RBC (Bld) [#/Vol] 4.05 10*6/uL Low 4.40 - 5.9 0 10*6/uL [employer] Work Phone: WBC (Bld) [#/Vol] 4.8 10*3/uL 3.6 - 10.7 10*3/uL [employer] Work Phone: Test Performed by [employer], [address] [place] [address] [employer] Work Phone: CR Chest Portableon 09-23-19 21 CR Chest Portable Patient Name: MEGAN NASCIMENTO Diagnostic Radiology ACCESSION EXAM DATE/TIME PROCEDURE ORDERING PROVIDER [id number] 09/22/2020 09:20 EST CR Chest Portable MAURO PADGETT CPT code 97588 Reason For Exam (CR Chest Portable) chf Report PORTABLE CHEST (Frontal View) History: CHF, cough, dyspnea Comparison: 09/12/2020 Findings: Frontal portable chest view shows diminished lung volume with CHF and mild interstitial edema. There is right basilar atelectasis/infiltra te and probably small bilateral pleural effusion. 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 There is no mediastinal widening or other significant interval change. 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 : 1940 Requested By: MAURO PADGETT Order Number: [id number] Reading MD: Camden Pepper Measurements Intervals [place] Rate: 109 P: 0 TN: QRS: -72 QRSD: 122 T: 124 QT: 388 QTc: 523 Interpretive Statements SINUS TACHYCARDIA VENTRICULAR-PACED COMPLEXES Ventricular premature beats NO FURTHER RHYTHM ANALYSIS ATTEMPTED DUE TO PACED RHYTHM NONSPECIFIC IVCD WITH LAD BASELINE WANDER IN LEAD(S) I,aVR Compared to ECG 09/05/2020 19:19:45 Intraventricular conduction delay now present Sinus tachycardia no longer present Myocardial infarct finding no longer present Electronically Signed On 09-22-2020 10:23:20 EST by Camden Pepper [employer] Work Phone: [facility] Test Date: 2020-09-21 Pat Name: Megan Nascimento [facility]: [facility] Gender: M Glass Artist: DONATO : 1940 Requested By: MAURO PADGETT Order Number: [id number] Reading MD: Camden Pepper Measurements Intervals [place] Rate: 109 P: 0 TN: QRS: -72 QRSD: 122 T: 124 QT: 388 QTc: 523 Interpretive Statements SINUS TACHYCARDIA VENTRICULAR-PACED COMPLEXES Ventricular premature beats NO FURTHER RHYTHM ANALYSIS ATTEMPTED DUE TO PACED RHYTHM NONSPECIFIC IVCD WITH LAD BASELINE WANDER IN LEAD(S) I,aVR Compared to ECG 09/05/2020 19:19:45 Intraventricular conduction delay now present Sinus tachycardia no longer present Myocardial infarct finding no longer present Electronically Signed On 09-22-2020 10:23:20 EST by Camdennargis [facility] Work Phone: Hemogramon 09-22-2020 Erythrocyte distribution width (RBC) [Ratio] 34.1 % High 11.5-14.5 [facility] Comment on above: Performed By: #### B GLU #### [employer] [address] [place] [address] Hematocrit (Bld) [Volume fraction] 33.6 % Low 40.0-52.0 [facility] Comment on above: Performed By: #### B GLU #### [facility] [address] [place] [address] Hemoglobin (Bld) [Mass/Vol] 10.6 g/dL Low 13.0-18.0 [facility] Comment on above: Performed By: #### B GLU #### [facility] [address] [place] [address] MCH (RBC) [Entitic mass] 26.2 pg Normal 26.0-34.0 [facility] Comment on above: Performed By: #### B GLU #### [facility] [address] [place] [address] MCHC 31.6 % Low 32.0-36.0 [facility] Comment on above: Performed By: #### B GLU #### [facility] [address] [place] [address] MCV (RBC) [Entitic vol] 82.9 fL Normal 80.0-98.0 [facility] Comment on above: Performed By: #### B GLU #### [facility] [address] [place] [address] Platelet mean volume (Bld) [Entitic vol] 8.5 fL Normal 7.4-10.4 [facility] Comment on above: Performed By: #### B GLU #### [facility] [address] [place] [address] Platelets (Bld) [#/Vol] 207 10*3/uL Normal 140-440 [facility] Comment on above: Performed By: #### B GLU #### [facility] [address] [place] [address] RBC (Bld) [#/Vol] 4.05 10*6/uL Low 4.40-5.90 [facility] Comment on above: Performed By: #### B GLU #### [facility] [address] [place] [address] WBC (Bld) [#/Vol] 4.8 10*3/uL Normal 3.6-10.7 [facility] Comment on above: Performed By: #### B GLU #### [facility] [address] [place] [address] Hepatic Functionon 1 ALP [Catalytic activity/Vol] 100 U/L Normal 38-126 [facility] Comment on above: Order Comment: SLIGH T HEMOLYSIS Performed By: #### B GLU #### [facility] [address] [place] [address] ALT [Catalytic activity/Vol] 25 U/L Normal 0-49 [facility] Comment on above: Order Comment: SLIGH T HEMOLYSIS Result Comment: The ALT test is performed by an updated assay method. Please note that the reference intervals have been changed and are now sex specific. Performed By: #### B GLU #### [facility] [address] [place] [address] AST [Catalytic activity/Vol] 66 U/L High 15-46 [facility] Comment on above: Order Comment: SLIGH T HEMOLYSIS Performed By: #### B GLU #### [facility] [address] [place] [address] Bilirubin [Mass/Vol] 1.9 mg/dL High 0.2-1.3 [facility] Comment on above: Order Comment: SLIGH T HEMOLYSIS Performed By: #### B GLU #### [facility] [address] [place] [address] Protein [Mass/Vol] 6.0 g/dL Low 6.3-8.2 [facility] Comment on above: Order Comment: SLIGH T HEMOLYSIS Performed By: #### B GLU #### [facility] [address] [place] [address] Bilirubin.indirect [Mass/Vol] 0.0 mg/dL Normal 0.0-0.3 [facility] Comment on above: Order Comment: SLIGH T HEMOLYSIS Performed By: #### B GLU #### [facility] [address] [place] [address] Albumin [Mass/Vol] 3.2 g/dL Low 3.5-5.0 [facility] Comment on above: Order Comment: SLIGH T HEMOLYSIS Performed By: #### B GLU #### [facility] [employer] [facility] [address] [place] [address] Hepatic Function Panelon Albumin [Mass/Vol] 3.2 g/dL Low 3.5 - 5.0 g/dL [facility] Work Phone: ALP [Catalytic activity/Vol] 100 U/L 38 - 126 U/L [facility] Work Phone: ALT [Catalytic activity/Vol] 25 U/L 0 - 49 U/L [employer] Work Phone: Comment on above: The ALT test is perf ormed by an updated assay method. Please note that the reference intervals have been changed and are now sex specific. AST [Catalytic activity/Vol] 66 U/L High 15 - 46 U/L [facility] Work Phone: Bilirubin Ql (U) 1.9 mg/dL High 0.2 - 1.3 mg/dL [facility] Work Phone: Bilirubin.direct [Mass/Vol] 0.0 mg/dL 0.0 - 0.3 mg/dL [facility] Work Phone: Interpretation and review of laboratory results Abnormal [facility] Work Phone: Protein [Mass/Vol] 6.0 g/dL Low 6.3 - 8.2 g/dL [facility] Work Phone: Test Performed by [employer], [address] [place], [place] [address] SLIGHT HEMOLYSIS [facility] Work Phone: Magnesiumon 09-22-2020 Magnesium [Mass/Vol] 1.5 mg/dL Low 1.6-2.3 [facility] [employer] Comment on above: Order Comment: SLIGH T HEMOLYSIS Performed By: #### B GLU #### [employer] [facility] [address] [place] [address] Magnesium [Mass/Vol] 1.5 mg/dL Low 1.6 - 2 .3 mg/dL [facility] Work Phone: Otheron 09-22-2020 Interpretation and review of laboratory results Abnormal [facility] Work Phone: Test Performed by [employer], [address] [place], [place] [address] SLIGHT HEMOLYSIS [facility] Work Phone: XR CHEST PORTABLEon 09-23-19 21 Chaim, [facility] Incoming Radiology Results From [facility] - 09/22/2020 9:32 AM EST Patient Name: MEGAN NASCIMENTO Diagnostic Radiology ACCESSION EXAM DATE/TIME PROCEDURE ORDERING PROVIDER [id number] 09/22/2020 09:20 EST CR Chest Portable MAURO PADGETT CPT code 56866 Reason For Exam (CR Chest Portable) chf Report PORTABLE CHEST (Frontal View) History: CHF, cough, dyspnea Comparison: 09/12/2020 Findings: Frontal portable chest view shows diminished lung volume with CHF and mild interstitial edema. There is right basilar atelectasis/infiltra te and probably small bilateral pleural effusion. 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 There is no mediastinal widening or other significant interval change. Report Dictated on --- Final --- Dictating Physician: MD PENA AHMAD Signed Date and Time: 09/22/2020 9:30 am Signed by: MD PENA AHMAD Transcribed Date and Time: 09/22/2020 9:31 [employer] Work Phone: Patient Name: MEGAN NASCIMENTO Diagnostic Radiology ACCESSION EXAM DATE/TIME PROCEDURE ORDERING PROVIDER [id number] 09/22/2020 09:20 EST CR Chest Portable MAURO PADGETT CPT code 23126 Reason For Exam (CR Chest Portable) chf Report PORTABLE CHEST (Frontal View) History: CHF, cough, dyspnea Comparison: 09/12/2020 Findings: Frontal portable chest view shows diminished lung volume with CHF and mild interstitial edema. There is right basilar atelectasis/infiltra te and probably small bilateral pleural effusion. 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 There is no mediastinal widening or other significant interval change. Report Dictated on --- Final --- Dictating Physician: MD PENA AHMAD Signed Date and Time: 09/22/2020 9:30 am Signed by: MD PENA AHMAD Transcribed Date and Time: 09/22/2020 9:31 [employer] Work Phone: Basic Metabolic Panelon -0 Calcium [Mass/Vol] 9.3 mg/dL Normal 8.4-10.4 [facility] [employer] [facility] Comment on above: Performed By: #### L IPD2, BMP3, MG3 #### [facility] [address] [place] [address] Anion gap [Moles/Vol] 13 mmol/L Normal 3-13 [facility] Comment on above: Performed By: #### L IPD2, BMP3, MG3 #### [facility] [address] [place] [address] CO2 [Moles/Vol] 30 mmol/L Normal 22-30 [facility] Comment on above: Performed By: #### L IPD2, BMP3, MG3 #### [facility] [address] [place] [address] Glucose [Mass/Vol] 127 mg/dL High 70-100 [facility] Comment on above: Performed By: #### L IPD2, BMP3, MG3 #### [facility] [address] [place] [address] Urea nitrogen [Mass/Vol] 41 mg/dL High 7-20 [facility] Comment on above: Performed By: #### L IPD2, BMP3, MG3 #### [facility] [address] [place] [address] Creatinine [Mass/Vol] 2.57 mg/dL High 0.52-1.25 [facility] Comment on above: Performed By: #### L IPD2, BMP3, MG3 #### [facility] [address] [place] [address] GFR/1.73 sq M.predicted among blacks MDRD (S/P/Bld) [Vol rate/Area] 26.0 mL/min/{1.73_m2} Abnormal >60 [facility] Comment on above: Performed By: #### L IPD2, BMP3, MG3 #### [facility] [address] [place] [address] GFR/1.73 sq M.predicted among non-blacks MDRD (S/P/Bld) [Vol rate/Area] 22.4 mL/min/{1.73_m2} Abnormal >60 [facility] Comment on above: Result Comment: KDIG O guidelines provide the following GFR categories: Stage GFR(ml/min/1.73 m2) Terms G1 >=90 Normal or high G2 60-89 Mildly decreased* G3a 45-59 Mildly to moderately decreased G3b 30-44 Moderately to severely decreased G4 15-29 Severely decreased G5 <15 Kidney failure *Relative to young adult level. In the absence of evidence of kidney damage, neither GFR category G1 nor G2 fulfill the criteria for CKD. The CKD-EPI equation is validated in individuals 18 years of age and older. Currently the best equation for estimating glomerular filtration rate (GFR) from serum creatinine in children is the Bedside Robertson equation. It is less accurate in patients with extremes of muscle mass, restriction of dietary protein, ingestion of creatine, extra-renal metabolism of creatinine, or treatment with medications that affect renal tubular creatinine secretion. Performed By: #### L IPD2, BMP3, MG3 #### [facility] [address] [place] [address] Chloride [Moles/Vol] 97 mmol/L Low 98-107 [facility] Comment on above: Performed By: #### L IPD2, BMP3, MG3 #### [facility] [address] [place] [address] Potassium [Moles/Vol] 3.8 mmol/L Normal 3.5-5.1 [facility] Comment on above: Performed By: #### L IPD2, BMP3, MG3 #### [facility] [address] [place] [address] Sodium [Moles/Vol] 141 mmol/L Normal 135-145 [facility] Comment on above: Performed By: #### L IPD2, BMP3, MG3 #### [facility] [address] [place] [address] Anion gap [Moles/Vol] 13 mmol/L 3 - 13 mmol/L [facility] Work Phone: Calcium [Mass/Vol] 9.3 mg/dL 8.4 - 10. 4 mg/dL [facility] Work Phone: Chloride [Moles/Vol] 97 mmol/L Low 98 - 10 7 mmol/L [facility] Work Phone: CO2 [Moles/Vol] 30 mmol/L 22 - 30 mmol/L [facility] Work Phone: Creatinine [Mass/Vol] 2.57 mg/dL High 0.52 - 1.25 mg/dL [employer] Work Phone: EGFR IF NonAfrican Greenlandic 22.4 mL/min Abnormal >60 [employer] Work Phone: Comment on above: KDIGO guidelines pro vide the following GFR categories: Stage GFR(ml/min/1.73 m2) Terms G1 >=90 Normal or high G2 60-89 Mildly decreased* G3a 45-59 Mildly to moderately decreased G3b 30-44 Moderately to severely decreased G4 15-29 Severely decreased G5 <15 Kidney failure *Relative to young adult level. In the absence of evidence of kidney damage, neither GFR category G1 nor G2 fulfill the criteria for CKD. The CKD-EPI equation is validated in individuals 18 years of age and older. Currently the best equation for estimating glomerular filtration rate (GFR) from serum creatinine in children is the Bedside Robertson equation. It is less accurate in patients with extremes of muscle mass, restriction of dietary protein, ingestion of creatine, extra-renal metabolism of creatinine, or treatment with medications that affect renal tubular creatinine secretion. GFR/1.73 sq M predicted among blacks MDRD (S/P/Bld) [Vol rate/Area] 26.0 mL/min/{1.73_m2} Abnormal >60 [employer] Work Phone: Glucose [Mass/Vol] 127 mg/dL High 70 - 100 mg/dL [employer] Work Phone: Interpretation and review of laboratory results Abnormal [employer] Work Phone: Potassium [Moles/Vol] 3.8 mmol/L 3.5 - 5.1 mmol/L [employer] Work Phone: Sodium [Moles/Vol] 141 mmol/L 135 - 145 mmol/L [employer] Work Phone: Urea nitrogen [Mass/Vol] 41 mg/dL High 7 - 20 mg/d L [employer] Work Phone: Test Performed by [employer], [address] [place] [address] [employer] Work Phone: Anion gap [Moles/Vol] 15 mmol/L High 3 - 13 mmol/L [facility] Work Phone: Calcium [Mass/Vol] 9.2 mg/dL 8.4 - 10. 4 mg/dL [facility] Work Phone: Chloride [Moles/Vol] 96 mmol/L Low 98 - 10 7 mmol/L [facility] Work Phone: CO2 [Moles/Vol] 29 mmol/L 22 - 30 mmol/L [facility] Work Phone: Creatinine [Mass/Vol] 2.48 mg/dL High 0.52 - 1.25 mg/dL [facility] Work Phone: EGFR IF NonAfrican Greenlandic 23.4 mL/min Abnormal >60 [facility] Work Phone: Comment on above: KDIGO guidelines pro vide the following GFR categories: Stage GFR(ml/min/1.73 m2) Terms G1 >=90 Normal or high G2 60-89 Mildly decreased* G3a 45-59 Mildly to moderately decreased G3b 30-44 Moderately to severely decreased G4 15-29 Severely decreased G5 <15 Kidney failure *Relative to young adult level. In the absence of evidence of kidney damage, neither GFR category G1 nor G2 fulfill the criteria for CKD. The CKD-EPI equation is validated in individuals 18 years of age and older. Currently the best equation for estimating glomerular filtration rate (GFR) from serum creatinine in children is the Bedside Robertson equation. It is less accurate in patients with extremes of muscle mass, restriction of dietary protein, ingestion of creatine, extra-renal metabolism of creatinine, or treatment with medications that affect renal tubular creatinine secretion. GFR/1.73 sq M predicted among blacks MDRD (S/P/Bld) [Vol rate/Area] 27.1 mL/min/{1.73_m2} Abnormal >60 [facility] Work Phone: Glucose [Mass/Vol] 128 mg/dL High 70 - 100 mg/dL [facility] Work Phone: Interpretation and review of laboratory results Abnormal [facility] Work Phone: Potassium [Moles/Vol] 4.1 mmol/L 3.5 - 5.1 mmol/L [facility] Work Phone: Sodium [Moles/Vol] 140 mmol/L 135 - 145 mmol/L [employer] Work Phone: Urea nitrogen [Mass/Vol] 38 mg/dL High 7 - 20 mg/d L [facility] Work Phone: Test Performed by [employer], [facility] [employer] [employer] [place] [address] [employer] Work Phone: Brain Natriuretic Peptideon 09-21-2020 Interpretation and review of laboratory results Abnormal [employer] Work Phone: Natriuretic peptide B (Bld) [Mass/Vol] 65291 pg/mL High 0 - 450 pg/mL [employer] Work Phone: Test Performed by [employer], [address] [place] [address] [employer] Work Phone: Interpretation and review of laboratory results Abnormal [employer] Work Phone: Natriuretic peptide B (Bld) [Mass/Vol] 63695 pg/mL High 0 - 450 pg/mL [employer] Work Phone: Test Performed by [employer], [facility] [place] [address] [employer] Work Phone: CBC Auto Differentialon 03-0 Absolute Baso # 0.1 10*3/uL 0.0 - 0.2 10*3/uL [employer] Work Phone: Absolute Neut # 3.9 10*3/uL 1.8 - 7.0 10*3/uL [employer] Work Phone: Basophils/100 WBC (Bld) 1.7 % 0.0 - 2.0 % [employer] Work Phone: Eosinophils (Bld) [#/Vol] 0.1 10*3/uL 0.0 - 0.5 10*3/uL [employer] Work Phone: Eosinophils/100 WBC (Bld) 2.0 % 1.0 - 6.0 % [employer] Work Phone: Erythrocyte distribution width (RBC) [Ratio] 34.0 % High 11.5 - 14.5 % [employer] Work Phone: Granulocytes/100 WBC (Bld) 71.9 % 40.0 - 80.0 % [employer] Work Phone: Hematocrit (Bld) [Volume fraction] 37.4 % Low 40.0 - 52.0 % [employer] Work Phone: Hemoglobin (Bld) [Mass/Vol] 11.7 g/dL Low 13.0 - 18.0 g/dL [employer] Work Phone: Interpretation and review of laboratory results Abnormal [employer] Work Phone: Lymphocytes (Bld) [#/Vol] 1.0 10*3/uL 1.0 - 4.3 10*3/uL [employer] Work Phone: Lymphocytes/100 WBC (Bld) 17.5 % Low 20.0 - 40.0 % [employer] Work Phone: MCH (RBC) [Entitic mass] 26.2 pg 26. 0 - 34.0 pg [employer] Work Phone: MCHC (RBC) [Mass/Vol] 31.4 % Low 32.0 - 36.0 % [employer] Work Phone: MCV (RBC) [Entitic vol] 83.6 fL 80.0 - 98.0 fL [employer] Work Phone: Monocytes (Bld) [#/Vol] 0.4 10*3/uL 0.0 - 0.8 10*3/uL [employer] Work Phone: Monocytes/100 WBC (Bld) 6.9 % 2.0 - 10.0 % [employer] Work Phone: Platelet mean volume (Bld) [Entitic vol] 8.9 fL 7.4 - 10.4 fL [employer] Work Phone: Platelets (Bld) [#/Vol] 237 10*3/uL 140 - 440 10*3/uL [facility] Work Phone: RBC (Bld) [#/Vol] 4.48 10*6/uL 4.40 - 5.9 0 10*6/uL [employer] Work Phone: WBC (Bld) [#/Vol] 5.5 10*3/uL 3.6 - 10.7 10*3/uL [facility] Work Phone: Test Performed by [facility], [address] [place] [address] [facility] Work Phone: Hemogram w/ Autodiffon 09-21 Abs Baso Cnt 0.1 10*3/uL Normal 0.0-0.2 [facility] Comment on above: Performed By: #### L IPD2, BMP3, MG3 #### [facility] [address] [place] [address] Abs Neutrophile Cnt 3.9 10*3/uL Normal 1.8-7.0 [facility] [employer] Comment on above: Performed By: #### L IPD2, BMP3, MG3 #### [employer] [address] [place] [address] Basophils/100 WBC (Bld) 1.7 % Normal 0.0-2.0 [facility] Comment on above: Performed By: #### L IPD2, BMP3, MG3 #### [facility] [address] [place] [address] Eosinophils (Bld) [#/Vol] 0.1 10*3/uL Normal 0.0-0.5 [facility] Comment on above: Performed By: #### L IPD2, BMP3, MG3 #### [employer] [address] [place] [address] Eosinophils/100 WBC (Bld) 2.0 % Normal 1.0-6.0 [facility] Comment on above: Performed By: #### L IPD2, BMP3, MG3 #### [facility] [address] [place] [address] Erythrocyte distribution width (RBC) [Ratio] 34.0 % High 11.5-14.5 [facility] Comment on above: Performed By: #### L IPD2, BMP3, MG3 #### [facility] [address] [place] [address] Granulocytes/100 WBC (Bld) 71.9 % Normal 40.0-80.0 [facility] Comment on above: Performed By: #### L IPD2, BMP3, MG3 #### [facility] [address] [place] [address] Hematocrit (Bld) [Volume fraction] 37.4 % Low 40.0-52.0 [facility] Comment on above: Performed By: #### L IPD2, BMP3, MG3 #### [facility] [address] [place] [address] Hemoglobin (Bld) [Mass/Vol] 11.7 g/dL Low 13.0-18.0 [facility] Comment on above: Performed By: #### L IPD2, BMP3, MG3 #### [facility] [address] [place] [address] Lymphocytes (Bld) [#/Vol] 1.0 10*3/uL Normal 1.0-4.3 [facility] Comment on above: Performed By: #### L IPD2, BMP3, MG3 #### [facility] [address] [place] [address] Lymphocytes/100 WBC (Bld) 17.5 % Low 20.0-40.0 [facility] Comment on above: Performed By: #### L IPD2, BMP3, MG3 #### [facility] [address] [place] [address] MCH (RBC) [Entitic mass] 26.2 pg Normal 26.0-34.0 [facility] Comment on above: Performed By: #### L IPD2, BMP3, MG3 #### [facility] [address] [place] [address] MCHC 31.4 % Low 32.0-36.0 [facility] Comment on above: Performed By: #### L IPD2, BMP3, MG3 #### [facility] [address] [place] [address] MCV (RBC) [Entitic vol] 83.6 fL Normal 80.0-98.0 [facility] Comment on above: Performed By: #### L IPD2, BMP3, MG3 #### [facility] [address] [place] [address] Monocytes (Bld) [#/Vol] 0.4 10*3/uL Normal 0.0-0.8 [facility] Comment on above: Performed By: #### L IPD2, BMP3, MG3 #### [facility] [address] [place] [address] Monocytes/100 WBC (Bld) 6.9 % Normal 2.0-10.0 [facility] Comment on above: Performed By: #### L IPD2, BMP3, MG3 #### [facility] [address] [place] [address] Platelet mean volume (Bld) [Entitic vol] 8.9 fL Normal 7.4-10.4 [facility] Comment on above: Performed By: #### L IPD2, BMP3, MG3 #### [facility] [address] [place] [address] Platelets (Bld) [#/Vol] 237 10*3/uL Normal 140-440 [facility] Comment on above: Performed By: #### L IPD2, BMP3, MG3 #### [facility] [address] [place] [address] RBC (Bld) [#/Vol] 4.48 10*6/uL Normal 4.40-5.90 [facility] Comment on above: Performed By: #### L IPD2, BMP3, MG3 #### [facility] [address] [place] [address] WBC (Bld) [#/Vol] 5.5 10*3/uL Normal 3.6-10.7 [facility] Comment on above: Performed By: #### L IPD2, BMP3, MG3 #### [facility] [address] [place] [address] Metabolic Panelon 09-21-2020 Sodium [Moles/Vol] Slight [facility] Work Phone: NT pro BNPon 09-21-2020 Natriuretic peptide B (Bld) [Mass/Vol] 76265 pg/mL High 0-450 [facility] Comment on above: Performed By: #### L IPD2, BMP3, MG3 #### [facility] [address] [place] [address] RBC MORPHOLOGYon 09-21-2020 Anisocytosis Ql (Bld) Moderate [facility] Work Phone: RBC morphology finding Nom (Bld) ABNORMAL [facility] Work Phone: Test Performed by [facility], [address] [place] [address] [facility] Work Phone: RBC Morphologyon 09-21-2020 Acanthocytes Slight Normal [facility] Comment on above: Performed By: #### L IPD2, BMP3, MG3 #### [facility] [address] [place] [address] Anisocytosis Ql (Bld) Moderate Normal [facility] Comment on above: Performed By: #### L IPD2, BMP3, MG3 #### [facility] [address] [place] [address] Pawlet Cells Slight Normal [facility] Comment on above: Performed By: #### L IPD2, BMP3, MG3 #### [facility] [address] [place] [address] Hypochromia Slight Normal [facility] Comment on above: Performed By: #### L IPD2, BMP3, MG3 #### [facility] [address] [place] [address] Poikilocytosis Slight Normal [facility] Comment on above: Performed By: #### L IPD2, BMP3, MG3 #### [facility] [address] [place] [address] RBC morphology finding Nom (Bld) ABNORMAL Normal [facility] Comment on above: Performed By: #### L IPD2, BMP3, MG3 #### [facility] [address] [place] [address] Schistocytes Slight Normal [facility] Comment on above: Performed By: #### L IPD2, BMP3, MG3 #### [facility] [address] [place] [address] Basic Metabolic Panel w/ Ref taz to MG 09-15-2020 Anion gap [Moles/Vol] 12 mmol/L 3 - 13 mmol/L [employer] Work Phone: Calcium [Mass/Vol] 8.7 mg/dL 8.4 - 10. 4 mg/dL [facility] Work Phone: Chloride [Moles/Vol] 96 mmol/L Low 98 - 10 7 mmol/L [facility] Work Phone: CO2 [Moles/Vol] 29 mmol/L 22 - 30 mmol/L [facility] Work Phone: Creatinine [Mass/Vol] 2.21 mg/dL High 0.52 - 1.25 mg/dL [employer] Work Phone: EGFR IF NonAfrican Greenlandic 26.9 mL/min Abnormal >60 [facility] Work Phone: Comment on above: KDIGO guidelines pro vide the following GFR categories: Stage GFR(ml/min/1.73 m2) Terms G1 >=90 Normal or high G2 60-89 Mildly decreased* G3a 45-59 Mildly to moderately decreased G3b 30-44 Moderately to severely decreased G4 15-29 Severely decreased G5 <15 Kidney failure *Relative to young adult level. In the absence of evidence of kidney damage, neither GFR category G1 nor G2 fulfill the criteria for CKD. The CKD-EPI equation is validated in individuals 18 years of age and older. Currently the best equation for estimating glomerular filtration rate (GFR) from serum creatinine in children is the Bedside Robertson equation. It is less accurate in patients with extremes of muscle mass, restriction of dietary protein, ingestion of creatine, extra-renal metabolism of creatinine, or treatment with medications that affect renal tubular creatinine secretion. GFR/1.73 sq M predicted among blacks MDRD (S/P/Bld) [Vol rate/Area] 31.2 mL/min/{1.73_m2} Abnormal >60 [facility] Work Phone: Glucose [Mass/Vol] 116 mg/dL High 70 - 100 mg/dL [facility] Work Phone: Interpretation and review of laboratory results Abnormal [facility] Work Phone: Potassium [Moles/Vol] 3.1 mmol/L Low 3.5 - 5.1 mmol/L [facility] Work Phone: Sodium [Moles/Vol] 138 mmol/L 135 - 145 mmol/L [facility] Work Phone: Urea nitrogen [Mass/Vol] 41 mg/dL High 7 - 20 mg/d L [facility] Work Phone: Test Performed by [employer], [facility] [place] [address] [facility] Work Phone: Magnesiumon 09-15-2020 Magnesium [Mass/Vol] 1.7 mg/dL 1.6 - 2 .3 mg/dL [employer] Work Phone: Test Performed by [employer], [facility] [employer] [place] [address] [facility] Work Phone: Basic Metabolic Panel w/ Ref taz to MGon 09-14-2020 Anion gap [Moles/Vol] 11 mmol/L 3 - 13 mmol/L [facility] Work Phone: Calcium [Mass/Vol] 8.5 mg/dL 8.4 - 10. 4 mg/dL [facility] Work Phone: Chloride [Moles/Vol] 95 mmol/L Low 98 - 10 7 mmol/L [facility] Work Phone: CO2 [Moles/Vol] 29 mmol/L 22 - 30 mmol/L [facility] Work Phone: Creatinine [Mass/Vol] 2.12 mg/dL High 0.52 - 1.25 mg/dL [facility] Work Phone: EGFR IF NonAfrican [place]ic 28.3 mL/min Abnormal >60 [facility] Work Phone: Comment on above: KDIGO guidelines pro vide the following GFR categories: Stage GFR(ml/min/1.73 m2) Terms G1 >=90 Normal or high G2 60-89 Mildly decreased* G3a 45-59 Mildly to moderately decreased G3b 30-44 Moderately to severely decreased G4 15-29 Severely decreased G5 <15 Kidney failure *Relative to young adult level. In the absence of evidence of kidney damage, neither GFR category G1 nor G2 fulfill the criteria for CKD. The CKD-EPI equation is validated in individuals 18 years of age and older. Currently the best equation for estimating glomerular filtration rate (GFR) from serum creatinine in children is the Bedside Robertson equation. It is less accurate in patients with extremes of muscle mass, restriction of dietary protein, ingestion of creatine, extra-renal metabolism of creatinine, or treatment with medications that affect renal tubular creatinine secretion. GFR/1.73 sq M predicted among blacks MDRD (S/P/Bld) [Vol rate/Area] 32.8 mL/min/{1.73_m2} Abnormal >60 [employer] Work Phone: Glucose [Mass/Vol] 120 mg/dL High 70 - 100 mg/dL [employer] Work Phone: Interpretation and review of laboratory results Abnormal [employer] Work Phone: Potassium [Moles/Vol] 5.0 mmol/L 3.5 - 5.1 mmol/L [employer] Work Phone: Comment on above: Moderately hemolysed , interpret with caution. Sodium [Moles/Vol] 135 mmol/L 135 - 145 mmol/L [employer] Work Phone: Urea nitrogen [Mass/Vol] 43 mg/dL High 7 - 20 mg/d L [employer] Work Phone: Test Performed by [employer], [address] [place] [address] [employer] Work Phone: Anion gap [Moles/Vol] 9 mmol/L 3 - 13 mmol/L [employer] Work Phone: Calcium [Mass/Vol] 8.6 mg/dL 8.4 - 10. 4 mg/dL [employer] Work Phone: Chloride [Moles/Vol] 96 mmol/L Low 98 - 10 7 mmol/L [employer] Work Phone: CO2 [Moles/Vol] 29 mmol/L 22 - 30 mmol/L [employer] Work Phone: Creatinine [Mass/Vol] 2.53 mg/dL High 0.52 - 1.25 mg/dL [employer] Work Phone: EGFR IF NonAfrican [place]ic 22.8 mL/min Abnormal >60 [employer] Work Phone: Comment on above: KDIGO guidelines pro vide the following GFR categories: Stage GFR(ml/min/1.73 m2) Terms G1 >=90 Normal or high G2 60-89 Mildly decreased* G3a 45-59 Mildly to moderately decreased G3b 30-44 Moderately to severely decreased G4 15-29 Severely decreased G5 <15 Kidney failure *Relative to young adult level. In the absence of evidence of kidney damage, neither GFR category G1 nor G2 fulfill the criteria for CKD. The CKD-EPI equation is validated in individuals 18 years of age and older. Currently the best equation for estimating glomerular filtration rate (GFR) from serum creatinine in children is the Bedside Robertson equation. It is less accurate in patients with extremes of muscle mass, restriction of dietary protein, ingestion of creatine, extra-renal metabolism of creatinine, or treatment with medications that affect renal tubular creatinine secretion. GFR/1.73 sq M predicted among blacks MDRD (S/P/Bld) [Vol rate/Area] 26.5 mL/min/{1.73_m2} Abnormal >60 [employer] Work Phone: Glucose [Mass/Vol] 130 mg/dL High 70 - 100 mg/dL [employer] Work Phone: Interpretation and review of laboratory results Abnormal [employer] Work Phone: Potassium [Moles/Vol] 3.3 mmol/L Low 3.5 - 5.1 mmol/L [employer] Work Phone: Sodium [Moles/Vol] 135 mmol/L 135 - 145 mmol/L [employer] Work Phone: Urea nitrogen [Mass/Vol] 48 mg/dL High 7 - 20 mg/d L [employer] Work Phone: Test Performed by [employer], [address] [place] [address] [employer] Work Phone: CBCon 09-14-2020 Erythrocyte distribution width (RBC) [Ratio] 34.1 % High 11.5 - 14.5 % [facility] Work Phone: Hematocrit (Bld) [Volume fraction] 33.9 % Low 40 - 52 % [facility] Work Phone: Hemoglobin (Bld) [Mass/Vol] 10.6 g/dL Low 13 - 18 g/dL [facility] Work Phone: Interpretation and review of laboratory results Abnormal [facility] Work Phone: MCH (RBC) [Entitic mass] 25.0 pg Low 26 - 34 pg [facility] Work Phone: MCHC (RBC) [Mass/Vol] 31.4 % Low 32 - 36 % [facility] Work Phone: MCV (RBC) [Entitic vol] 79.8 fL Low 80 - 98 fL [facility] Work Phone: Platelet mean volume (Bld) [Entitic vol] 8.3 fL 7.4 - 10.4 fL [facility] Work Phone: Platelets (Bld) [#/Vol] 225 10*3/uL 140 - 440 10*3/uL [facility] Work Phone: RBC (Bld) [#/Vol] 4.24 10*6/uL Low 4.4 - 5.9 10*6/uL [facility] Work Phone: WBC (Bld) [#/Vol] 5.4 10*3/uL 3.6 - 10.7 10*3/uL [facility] Work Phone: Test Performed by [employer] [address] [facility] Work Phone: Erythrocyte distribution width (RBC) [Ratio] 34.2 % High 11.5 - 14.5 % [facility] Work Phone: Hematocrit (Bld) [Volume fraction] 32.3 % Low 40 - 52 % [facility] Work Phone: Hemoglobin (Bld) [Mass/Vol] 10.1 g/dL Low 13 - 18 g/dL [facility] Work Phone: Interpretation and review of laboratory results Abnormal [facility] Work Phone: MCH (RBC) [Entitic mass] 25.1 pg Low 26 - 34 pg [facility] Work Phone: MCHC (RBC) [Mass/Vol] 31.1 % Low 32 - 36 % [facility] Work Phone: MCV (RBC) [Entitic vol] 80.7 fL 80 - 98 fL [facility] Work Phone: Platelet mean volume (Bld) [Entitic vol] 8.8 fL 7.4 - 10.4 fL [facility] Work Phone: Platelets (Bld) [#/Vol] 230 10*3/uL 140 - 440 10*3/uL [facility] Work Phone: RBC (Bld) [#/Vol] 4.00 10*6/uL Low 4.4 - 5.9 10*6/uL [facility] Work Phone: WBC (Bld) [#/Vol] 6.0 10*3/uL 3.6 - 10.7 10*3/uL [facility] Work Phone: Test Performed by [employer], [facility] [employer] [place] [address] [facility] Work Phone: Magnesiumon 09-14-2020 Magnesium [Mass/Vol] 1.9 mg/dL 1.6 - 2 .3 mg/dL [facility] Work Phone: Comment on above: Moderately hemolysed , interpret with caution. Test Performed by [employer], [place] [address] [facility] Work Phone: Magnesium [Mass/Vol] 1.6 mg/dL 1.6 - 2 .3 mg/dL [facility] Work Phone: Test Performed by [facility], [address] [place] [address] [facility] Work Phone: US RETROPERITONEAL COMPLETEo n 09-14-2020 [place], [facility] Incoming Radiology Results From [employer] - 09/14/2020 2:49 PM EST Patient Name: MEGAN NASCIMENTO Ultrasound ACCESSION EXAM DATE/TIME PROCEDURE ORDERING PROVIDER [id number] 09/14/2020 12:50 EST US Retroperitoneal LENKA, CROWNING INSPECTOR, CINDY LEIJA CPT code 77194 Reason For Exam (US Retroperitoneal Complete) r/o hydronephrosis Report Renal ultrasound: 09/14/2020. CLINICAL INFORMATION: Decreased urine output. FINDINGS: Sonographic examination of the kidneys was performed. No prior studies for comparison. The echogenicity of the kidney cortices is within normal limits. There is no evidence of hydronephrosis on either side. Both kidneys are within normal limits in size. The right kidney measures approximately 9.8 x 5.4 x 6.1 cm. The left kidney measures approximately 10.3 x 5.6 x 5.9 cm. There are cysts from each kidney. No other contour abnormalities are identified. There is a punctate high-level echo from the right kidney with acoustic shadowing consistent with a nonobstructing pelvicalyceal calculus. Cursory examination of the urinary bladder reveals the bladder to be collapsed around a Cortés catheter. Of incidental note is a moderate amount of ascites. IMPRESSION: No acute process. Ascites. Report Dictated on --- Final --- Dictated: 09/14/2020 2:45 pm Dictating Physician: MD LAN RISA Signed Date and Time: 09/14/2020 2:48 pm Signed by: MD LAN RISA Transcribed Date and Time: 09/14/2020 2:45 [facility] Work Phone: Patient Name: MEGAN NASCIMENTO Ultrasound ACCESSION EXAM DATE/TIME PROCEDURE ORDERING PROVIDER [id number] 09/14/2020 12:50 EST US Retroperitoneal LENKA, DIANA, CINDY LEIJA CPT code 96391 Reason For Exam (US Retroperitoneal Complete) r/o hydronephrosis Report Renal ultrasound: 09/14/2020. CLINICAL INFORMATION: Decreased urine output. FINDINGS: Sonographic examination of the kidneys was performed. No prior studies for comparison. The echogenicity of the kidney cortices is within normal limits. There is no evidence of hydronephrosis on either side. Both kidneys are within normal limits in size. The right kidney measures approximately 9.8 x 5.4 x 6.1 cm. The left kidney measures approximately 10.3 x 5.6 x 5.9 cm. There are cysts from each kidney. No other contour abnormalities are identified. There is a punctate high-level echo from the right kidney with acoustic shadowing consistent with a nonobstructing pelvicalyceal calculus. Cursory examination of the urinary bladder reveals the bladder to be collapsed around a Cortés catheter. Of incidental note is a moderate amount of ascites. IMPRESSION: No acute process. Ascites. Report Dictated on --- Final --- Dictated: 09/14/2020 2:45 pm Dictating Physician: MD LAN RISA Signed Date and Time: 09/14/2020 2:48 pm Signed by: MD LAN RISA Transcribed Date and Time: 09/14/2020 2:45 [employer] Work Phone: BASIC METABOLIC PANELon - Anion gap [Moles/Vol] 13 mmol/L 3 - 13 mmol/L [employer] Work Phone: Calcium [Mass/Vol] 8.7 mg/dL 8.4 - 10. 4 mg/dL [facility] Work Phone: Chloride [Moles/Vol] 95 mmol/L Low 98 - 10 7 mmol/L [facility] Work Phone: CO2 [Moles/Vol] 27 mmol/L 22 - 30 mmol/L [employer] Work Phone: Creatinine [Mass/Vol] 3.08 mg/dL High 0.52 - 1.25 mg/dL [employer] Work Phone: EGFR IF NonAfrican Greenlandic 18.0 mL/min Abnormal >60 [facility] Work Phone: Comment on above: KDIGO guidelines pro vide the following GFR categories: Stage GFR(ml/min/1.73 m2) Terms G1 >=90 Normal or high G2 60-89 Mildly decreased* G3a 45-59 Mildly to moderately decreased G3b 30-44 Moderately to severely decreased G4 15-29 Severely decreased G5 <15 Kidney failure *Relative to young adult level. In the absence of evidence of kidney damage, neither GFR category G1 nor G2 fulfill the criteria for CKD. The CKD-EPI equation is validated in individuals 18 years of age and older. Currently the best equation for estimating glomerular filtration rate (GFR) from serum creatinine in children is the Bedside Robertson equation. It is less accurate in patients with extremes of muscle mass, restriction of dietary protein, ingestion of creatine, extra-renal metabolism of creatinine, or treatment with medications that affect renal tubular creatinine secretion. GFR/1.73 sq M predicted among blacks MDRD (S/P/Bld) [Vol rate/Area] 20.9 mL/min/{1.73_m2} Abnormal >60 [employer] Work Phone: Glucose [Mass/Vol] 146 mg/dL High 70 - 100 mg/dL [employer] Work Phone: Interpretation and review of laboratory results Abnormal [employer] Work Phone: Potassium [Moles/Vol] 4.1 mmol/L 3.5 - 5.1 mmol/L [employer] Work Phone: Sodium [Moles/Vol] 134 mmol/L Low 135 - 145 mmol/L [employer] Work Phone: Urea nitrogen [Mass/Vol] 47 mg/dL High 7 - 20 mg/d L [employer] Work Phone: EKG 12 Leadon 09-13-2020 [place], [facility] Incoming Cardiology Results From [facility] - 09/13/2020 10:50 AM EST [facility] Date: 2020-09-12 Pat Name: Megan Nascimento Department: 1A1C Room: [facility] Gender: M 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 : 1940 Requested By: GIBSON DUGAN Order Number: [id number] Reading MD: Judith Diaz Measurements Intervals [place] Rate: 79 P: 18 TN: 167 QRS: 171 QRSD: 130 T: -23 QT: 470 QTc: 539 Interpretive Statements Atrial-sensed ventricular-paced rhythm Electronically Signed On 09-13-2020 10:49:15 EST by Judith Diaz [employer] Work Phone: [employer] Test Date: 2020-09-12 Pat Name: Megan Nascimento Department: [facility] Room: [facility] Gender: M 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 : 1940 Requested By: GIBSON DUGAN Order Number: [id number] Reading MD: Judith Diaz Measurements Intervals [place] Rate: 79 P: 18 TN: 167 QRS: 171 QRSD: 130 T: -23 QT: 470 QTc: 539 Interpretive Statements Atrial-sensed ventricular-paced rhythm Electronically Signed On 09-13-2020 10:49:15 EST by Judith Emily [employer] Work Phone: Magnesiumon 09-13-2020 Magnesium [Mass/Vol] 1.6 mg/dL 1.6 - 2 .3 mg/dL [employer] Work Phone: Otheron 09-13-2020 Test Performed by [employer] [place] [address] [employer] Work Phone: Add On Lab Teston 09-12-2020 Sodium [Moles/Vol] Accepted [employer] Work Phone: Comment on above: Specimen available & acceptable for analysis. Test Performed by [employer], [place] [address] [employer] Work Phone: BASIC METABOLIC PANELon 08-22 Anion gap [Moles/Vol] 14 mmol/L High 3 - 13 mmol/L [employer] Work Phone: Calcium [Mass/Vol] 8.4 mg/dL 8.4 - 10. 4 mg/dL [employer] Work Phone: Chloride [Moles/Vol] 97 mmol/L Low 98 - 10 7 mmol/L [employer] Work Phone: CO2 [Moles/Vol] 26 mmol/L 22 - 30 mmol/L [employer] Work Phone: Creatinine [Mass/Vol] 2.56 mg/dL High 0.52 - 1.25 mg/dL [employer] Work Phone: EGFR IF NonAfrican Greenlandic 22.5 mL/min Abnormal >60 [employer] Work Phone: Comment on above: KDIGO guidelines pro vide the following GFR categories: Stage GFR(ml/min/1.73 m2) Terms G1 >=90 Normal or high G2 60-89 Mildly decreased* G3a 45-59 Mildly to moderately decreased G3b 30-44 Moderately to severely decreased G4 15-29 Severely decreased G5 <15 Kidney failure *Relative to young adult level. In the absence of evidence of kidney damage, neither GFR category G1 nor G2 fulfill the criteria for CKD. The CKD-EPI equation is validated in individuals 18 years of age and older. Currently the best equation for estimating glomerular filtration rate (GFR) from serum creatinine in children is the Bedside Robertson equation. It is less accurate in patients with extremes of muscle mass, restriction of dietary protein, ingestion of creatine, extra-renal metabolism of creatinine, or treatment with medications that affect renal tubular creatinine secretion. GFR/1.73 sq M predicted among blacks MDRD (S/P/Bld) [Vol rate/Area] 26.1 mL/min/{1.73_m2} Abnormal >60 [employer] Work Phone: Glucose [Mass/Vol] 160 mg/dL High 70 - 100 mg/dL [employer] Work Phone: Interpretation and review of laboratory results Abnormal [employer] Work Phone: Potassium [Moles/Vol] 3.6 mmol/L 3.5 - 5.1 mmol/L [employer] Work Phone: Sodium [Moles/Vol] 137 mmol/L 135 - 145 mmol/L [employer] Work Phone: Urea nitrogen [Mass/Vol] 40 mg/dL High 7 - 20 mg/d L [employer] Work Phone: Test Performed by [employer] [address] [employer] Work Phone: Brain Natriuretic Peptideon 09-12-2020 Interpretation and review of laboratory results Abnormal [employer] Work Phone: Natriuretic peptide B (Bld) [Mass/Vol] 91542 pg/mL High 0 - 450 pg/mL [employer] Work Phone: Test Performed by [employer], [place] [address] [employer] Work Phone: CBC Auto Differentialon 08-22 Absolute Baso # 0.0 10*3/uL 0 - 0.2 10*3/uL [employer] Work Phone: Absolute Neut # 3.0 10*3/uL 1.8 - 7 10*3/uL [employer] Work Phone: Basophils/100 WBC (Bld) 0.5 % 0 - 2 % [facility] Work Phone: Eosinophils (Bld) [#/Vol] 0.0 10*3/uL 0 - 0.5 10*3/uL [employer] Work Phone: Eosinophils/100 WBC (Bld) 0.0 % Low 1 - 6 % [employer] Work Phone: Erythrocyte distribution width (RBC) [Ratio] 34.0 % High 11.5 - 14.5 % [employer] Work Phone: Granulocytes/100 WBC (Bld) 77.3 % 40 - 80 % [employer] Work Phone: Hematocrit (Bld) [Volume fraction] 33.1 % Low 40 - 52 % [employer] Work Phone: Hemoglobin (Bld) [Mass/Vol] 10.2 g/dL Low 13 - 18 g/dL [employer] Work Phone: Interpretation and review of laboratory results Abnormal [employer] Work Phone: Lymphocytes (Bld) [#/Vol] 0.7 10*3/uL Low 1 - 4.3 10*3/uL [facility] Work Phone: Lymphocytes/100 WBC (Bld) 17.3 % Low 20 - 40 % [facility] Work Phone: [phone] MCH (RBC) [Entitic mass] 24.8 pg Low 26 - 34 pg [facility] Work Phone: [phone] MCHC (RBC) [Mass/Vol] 30.8 % Low 32 - 36 % [facility] Work Phone: [phone] MCV (RBC) [Entitic vol] 80.5 fL 80 - 98 fL [facility] Work Phone: [phone] Monocytes (Bld) [#/Vol] 0.2 10*3/uL 0 - 0.8 10*3/uL [facility] Work Phone: [phone] Monocytes/100 WBC (Bld) 4.9 % 2 - 10 % [facility] Work Phone: [phone] Platelet mean volume (Bld) [Entitic vol] 8.9 fL 7.4 - 10.4 fL [facility] Work Phone: [phone] Platelets (Bld) [#/Vol] 276 10*3/uL 140 - 440 10*3/uL [facility] Work Phone: [phone] RBC (Bld) [#/Vol] 4.11 10*6/uL Low 4.4 - 5.9 10*6/uL [facility] Work Phone: [phone] WBC (Bld) [#/Vol] 3.9 10*3/uL 3.6 - 10.7 10*3/uL [facility] Work Phone: [phone] Test Performed by [employer], [facility] [employer] [place] [address] [facility] Work Phone: [phone] Lactic Acid, Plasmaon 2020 Lactate [Moles/Vol] 1.8 mmol/L 0.7 - 2 mmol/L [facility] Work Phone: Test Performed by [employer], [facility] [employer] [place] [address] [facility] Work Phone: [phone] Interpretation and review of laboratory results Abnormal [facility] Work Phone: Lactate [Moles/Vol] 2.6 mmol/L Critically high 0.7 - 2 mmol/L [facility] Work Phone: Test Performed by [employer], [facility] [place] [address] [facility] Work Phone: Interpretation and review of laboratory results Abnormal [facility] Work Phone: Lactate [Moles/Vol] 2.8 mmol/L Critically high 0.7 - 2 mmol/L [facility] Work Phone: Test Performed by [employer], [facility] [place] [address] [facility] Work Phone: Metabolic Panelon 09-12-2020 Sodium [Moles/Vol] Slight [facility] Work Phone: RBC MORPHOLOGYon 09-12-2020 Anisocytosis Ql (Bld) Slight [facility] Work Phone: RBC morphology finding Nom (Bld) ABNORMAL [facility] Work Phone: Test Performed by [employer], [place] [address] [facility] Work Phone: XR CHEST (2 VW)on 09-12-2020 Patient Name: MEGAN NASCIMENTO Diagnostic Radiology ACCESSION EXAM DATE/TIME PROCEDURE ORDERING PROVIDER [id number] 09/12/2020 09:53 EST CR Chest PA & LAT MD LUIS, MARCELA CPT code 05487 Reason For Exam (CR Chest PA & LAT) new device implant, please overpenetrate films Report CLINICAL INDICATION: New cardiac device Frontal and lateral plain films of the chest were obtained. COMPARISON: None FINDINGS: One findings are shallow. Bipolar cardiac pacemaker/ACD leads in satisfactory position. No pneumothorax. Mild right lower lung atelectasis. Heart size appears borderline to mildly prominent, although is accentuated by the shallow lung volumes. IMPRESSION: Placement of a ACD/pacemaker leads in satisfactory position. No pneumothorax. Mild right lower lung atelectasis. Report Dictated on --- Final --- Dictated: 09/12/2020 10:00 am Dictating Physician: MD BETTS LAURA Signed Date and Time: 09/12/2020 10:02 am Signed by: MD BETTS LAURA Transcribed Date and Time: 09/12/2020 10:00 [employer] Work Phone: [place], [facility] Incoming Radiology Results From [facility] - 09/12/2020 10:03 AM EST Patient Name: MEGAN NASCIMENTO Diagnostic Radiology ACCESSION EXAM DATE/TIME PROCEDURE ORDERING PROVIDER [id number] 09/12/2020 09:53 EST CR Chest PA & LAT MD LUIS, MARCELA CPT code 28141 Reason For Exam (CR Chest PA & LAT) new device implant, please overpenetrate films Report CLINICAL INDICATION: New cardiac device Frontal and lateral plain films of the chest were obtained. COMPARISON: None FINDINGS: One findings are shallow. Bipolar cardiac pacemaker/ACD leads in satisfactory position. No pneumothorax. Mild right lower lung atelectasis. Heart size appears borderline to mildly prominent, although is accentuated by the shallow lung volumes. IMPRESSION: Placement of a ACD/pacemaker leads in satisfactory position. No pneumothorax. Mild right lower lung atelectasis. Report Dictated on --- Final --- Dictated: 09/12/2020 10:00 am Dictating Physician: MD BETTS LAURA Signed Date and Time: 09/12/2020 10:02 am Signed by: MD BETTS LAURA Transcribed Date and Time: 09/12/2020 10:00 [employer] Work Phone: CT Abdomen Pelvis Wo Contras ton 09-05-2020 Patient Name: MEGAN NASCIMENTO Computed Tomography ACCESSION EXAM DATE/TIME PROCEDURE ORDERING PROVIDER [id number] 09/05/2020 22:[address] Abdomen/Pelvis (No [id number] -MORAH, J PO, No IV) CPT code 21308 Reason For Exam (CT Abdomen/Pelvis (No PO, No IV)) ruq abd pain Report CT ABDOMEN AND PELVIS WITHOUT CONTRAST CLINICAL INDICATION: ruq abd pain TECHNIQUE: CT scan of the abdomen and pelvis without IV/oral contrast. Multiplanar reformations. COMPARISON: None FINDINGS: Solid organ evaluation limited from lack of IV contrast. Large right and small left pleural effusions. Moderate sized hiatal hernia. Minor infiltrates or edema left lower lobe. No focal hepatic lesion seen. Several small gallstones noted. Spleen shows no significant abnormality. Adrenal glands show no significant abnormality. Large renal cyst on the left along lateral margin of left kidney measures about 8 cm in size. Smaller bilateral cysts. Several tiny right renal calculi. Pancreas shows no significant abnormality. Abdominal aorta is nonaneurysmal. Moderate ascites. Extensive sigmoid diverticulosis. Extensive descending colon diverticulosis. Appendix not seen with certainty. No bowel obstruction or free air seen. IMPRESSION: 1. Pleural effusions, right much larger than left. Minor infiltrates or edema left lower lobe. 2. Gallstones. A few tiny right renal calculi. Bilateral renal cysts. 3. Diverticulosis. 4. Moderate ascites. 5. Hiatal hernia. Computed Tomography Report Report Dictated on --- Final --- Dictating Physician: MD RAMIREZ JOHN R Signed Date and Time: 09/05/2020 10:41 pm Signed by: MD RAMIREZ JOHN R Transcribed Date and Time: 09/05/2020 10:43 [facility] Work Phone: [facility], [facility] Incoming Radiology Results From [facility] - 09/05/2020 10:43 PM EST [facility]: [id number] Tomography ACCESSION EXAM DATE/TIME PROCEDURE ORDERING PROVIDER [id number] 09/05/2020 22:[address] Abdomen/Pelvis (No [id number] -Shamika GLASGOW PO, No IV) CPT code 66852 Reason For Exam (CT Abdomen/Pelvis (No PO, No IV)) ruq abd pain Report CT ABDOMEN AND PELVIS WITHOUT CONTRAST CLINICAL INDICATION: ruq abd pain TECHNIQUE: CT scan of the abdomen and pelvis without IV/oral contrast. Multiplanar reformations. COMPARISON: None FINDINGS: Solid organ evaluation limited from lack of IV contrast. Large right and small left pleural effusions. Moderate sized hiatal hernia. Minor infiltrates or edema left lower lobe. No focal hepatic lesion seen. Several small gallstones noted. Spleen shows no significant abnormality. Adrenal glands show no significant abnormality. Large renal cyst on the left along lateral margin of left kidney measures about 8 cm in size. Smaller bilateral cysts. Several tiny right renal calculi. Pancreas shows no significant abnormality. Abdominal aorta is nonaneurysmal. Moderate ascites. Extensive sigmoid diverticulosis. Extensive descending colon diverticulosis. Appendix not seen with certainty. No bowel obstruction or free air seen. IMPRESSION: 1. Pleural effusions, right much larger than left. Minor infiltrates or edema left lower lobe. 2. Gallstones. A few tiny right renal calculi. Bilateral renal cysts. 3. Diverticulosis. 4. Moderate ascites. 5. Hiatal hernia. Computed Tomography Report Report Dictated on --- Final --- Dictating Physician: MD RAMIREZ JOHN R Signed Date and Time: 09/05/2020 10:41 pm Signed by: MD RAMIREZ JOHN R Transcribed Date and Time: 09/05/2020 10:43 [facility] Work Phone: CT Abdomen/Pelvis w/o Contra ston 09-05-2020 CT Abdomen/Pelvis w/o Contrast Patient Name: MEGAN NASCIMENTO Computed Tomography ACCESSION EXAM DATE/TIME PROCEDURE ORDERING PROVIDER [id number] 09/05/2020 22:[address] Abdomen/Pelvis (No [id number] -Shamika GLASGOW PO, No IV) CPT code 01116 Reason For Exam (CT Abdomen/Pelvis (No PO, No IV)) ruq abd pain Report CT ABDOMEN AND PELVIS WITHOUT CONTRAST CLINICAL INDICATION: ruq abd pain TECHNIQUE: CT scan of the abdomen and pelvis without IV/oral contrast. Multiplanar reformations. COMPARISON: None FINDINGS: Solid organ evaluation limited from lack of IV contrast. Large right and small left pleural effusions. Moderate sized hiatal hernia. Minor infiltrates or edema left lower lobe. No focal hepatic lesion seen. Several small gallstones noted. Spleen shows no significant abnormality. Adrenal glands show no significant abnormality. Large renal cyst on the left along lateral margin of left kidney measures about 8 cm in size. Smaller bilateral cysts. Several tiny right renal calculi. Pancreas shows no significant abnormality. Abdominal aorta is nonaneurysmal. Moderate ascites. Extensive sigmoid diverticulosis. Extensive descending colon diverticulosis. Appendix not seen with certainty. No bowel obstruction or free air seen. IMPRESSION: 1. Pleural effusions, right much larger than left. Minor infiltrates or edema left lower lobe. 2. Gallstones. A few tiny right renal calculi. Bilateral renal cysts. 3. Diverticulosis. 4. Moderate ascites. 5. Hiatal hernia. Computed Tomography Report Report Dictated on Final Dictating Physician: MD JAMES, DAGMAR Klein Signed Date and Time: 09/05/2020 10:41 pm Signed by: MD RAMIREZ JOHN R Transcribed Date and Time: 09/05/2020 10:43 Normal [facility] Comp Metabolic Panelon 09-05 ALP [Catalytic activity/Vol] 107 U/L Normal 38-126 [facility] Comment on above: Performed By: #### B NP3, TROPN, BMP3, HEMDF #### [facility] [address] [place] [address] ALT [Catalytic activity/Vol] 43 U/L Normal 0-49 [facility] Comment on above: Result Comment: The ALT test is performed by an updated assay method. Please note that the reference intervals have been changed and are now sex specific. Performed By: #### B NP3, TROPN, BMP3, HEMDF #### [facility] [address] [place] [address] Calcium [Mass/Vol] 8.9 mg/dL Normal 8.4-10.4 [facility] Comment on above: Performed By: #### B NP3, TROPN, BMP3, HEMDF #### [facility] [address] [place] [address] Glucose [Mass/Vol] 130 mg/dL High 70-100 [facility] Comment on above: Performed By: #### B NP3, TROPN, BMP3, HEMDF #### [facility] [address] [place] [address] Protein [Mass/Vol] 7.1 g/dL Normal 6.3-8.2 [facility] Comment on above: Performed By: #### B NP3, TROPN, BMP3, HEMDF #### [facility] [address] [place] [address] Urea nitrogen [Mass/Vol] 39 mg/dL High 7-20 [facility] Comment on above: Performed By: #### B NP3, TROPN, BMP3, HEMDF #### [facility] [address] [place] [address] Anion gap [Moles/Vol] 15 mmol/L High 3-13 [facility] Comment on above: Performed By: #### B NP3, TROPN, BMP3, HEMDF #### [facility] [address] [place] [address] AST [Catalytic activity/Vol] 84 U/L High 15-46 [facility] Comment on above: Performed By: #### B NP3, TROPN, BMP3, HEMDF #### [facility] [address] [place] [address] Bilirubin [Mass/Vol] 1.9 mg/dL High 0.2-1.3 [facility] Comment on above: Performed By: #### B NP3, TROPN, BMP3, HEMDF #### [facility] [address] [place] [address] CO2 [Moles/Vol] 30 mmol/L Normal 22-30 [facility] Comment on above: Performed By: #### B NP3, TROPN, BMP3, HEMDF #### [facility] [address] [place] [address] Creatinine [Mass/Vol] 2.73 mg/dL High 0.52-1.25 [facility] Comment on above: Performed By: #### B NP3, TROPN, BMP3, HEMDF #### [facility] [address] [place] [address] GFR/1.73 sq M.predicted among blacks MDRD (S/P/Bld) [Vol rate/Area] 24.1 mL/min/{1.73_m2} Abnormal >60 [facility] Comment on above: Performed By: #### B NP3, TROPN, BMP3, HEMDF #### [facility] [address] [place] [address] GFR/1.73 sq M.predicted among non-blacks MDRD (S/P/Bld) [Vol rate/Area] 20.8 mL/min/{1.73_m2} Abnormal >60 [facility] Comment on above: Result Comment: KDIG O guidelines provide the following GFR categories: Stage GFR(ml/min/1.73 m2) Terms G1 >=90 Normal or high G2 60-89 Mildly decreased* G3a 45-59 Mildly to moderately decreased G3b 30-44 Moderately to severely decreased G4 15-29 Severely decreased G5 <15 Kidney failure *Relative to young adult level. In the absence of evidence of kidney damage, neither GFR category G1 nor G2 fulfill the criteria for CKD. The CKD-EPI equation is validated in individuals 18 years of age and older. Currently the best equation for estimating glomerular filtration rate (GFR) from serum creatinine in children is the Bedside Robertson equation. It is less accurate in patients with extremes of muscle mass, restriction of dietary protein, ingestion of creatine, extra-renal metabolism of creatinine, or treatment with medications that affect renal tubular creatinine secretion. Performed By: #### B NP3, TROPN, BMP3, HEMDF #### [facility] [address] [place] [address] Chloride [Moles/Vol] 97 mmol/L Low 98-107 [facility] Comment on above: Performed By: #### B NP3, TROPN, BMP3, HEMDF #### [facility] [address] [place] [address] Potassium [Moles/Vol] 3.9 mmol/L Normal 3.5-5.1 [facility] Comment on above: Performed By: #### B NP3, TROPN, BMP3, HEMDF #### [facility] [address] [place] [address] Sodium [Moles/Vol] 141 mmol/L Normal 135-145 [facility] Comment on above: Performed By: #### B NP3, TROPN, BMP3, HEMDF #### [facility] [address] [place] [address] Albumin [Mass/Vol] 4.3 g/dL Normal 3.5-5.0 [facility] Comment on above: Performed By: #### B NP3, TROPN, BMP3, HEMDF #### [facility] [address] [place] [address] Complete Urinalysison 2020 Appearance (U) Clear Normal Clear [facility] Comment on above: Result Comment: . Performed By: #### B NP3, TROPN, BMP3, HEMDF #### [facility] [address] [place] [address] Bacteria Few Abnormal Negative [facility] Comment on above: Result Comment: . Performed By: #### B NP3, TROPN, BMP3, HEMDF #### [facility] [address] [place] [address] Bilirubin,Urine Negative Normal Negative [facility] Comment on above: Result Comment: . Performed By: #### B NP3, TROPN, BMP3, HEMDF #### [facility] [address] [place] [address] Cast, Hyaline 26 - [address] [facility] Comment on above: Result Comment: . Performed By: #### B NP3, TROPN, BMP3, HEMDF #### [facility] [address] [place] [address] Color (U) Dark-Yellow Abnormal Lt. Yellow [facility] Comment on above: Result Comment: . Performed By: #### B NP3, TROPN, BMP3, HEMDF #### [facility] [address] [place] [address] Glucose Ql (U) Normal Normal Normal (<70) [facility] Comment on above: Result Comment: . Performed By: #### B NP3, TROPN, BMP3, HEMDF #### [facility] [address] [place] [address] Ketone,Urine Negative Normal Negative [facility] Comment on above: Result Comment: . Performed By: #### B NP3, TROPN, BMP3, HEMDF #### [facility] [address] [place] [address] Leukocytes,Urine Negative Normal Negative [facility] Comment on above: Result Comment: . Performed By: #### B NP3, TROPN, BMP3, HEMDF #### [facility] [address] [place] [address] Mucous Threads Few Normal Negative [facility] Comment on above: Result Comment: . Performed By: #### B NP3, TROPN, BMP3, HEMDF #### [facility] [address] [place] [address] Nitrites,Urine Negative Normal Negative [facility] Comment on above: Result Comment: . Performed By: #### B NP3, TROPN, BMP3, HEMDF #### [facility] [address] [place] [address] Non-Squamous Epithelial < 1 Abnormal Negative [facility] Comment on above: Result Comment: . Performed By: #### B NP3, TROPN, BMP3, HEMDF #### [facility] [address] [place] [address] Occult Blood,Urine Negative Normal Negative [facility] Comment on above: Result Comment: . Performed By: #### B NP3, TROPN, BMP3, HEMDF #### [facility] [address] [place] [address] pH,Urine 5.0 Normal 5.0-8.0 [facility] Comment on above: Result Comment: . Performed By: #### B NP3, TROPN, BMP3, HEMDF #### [facility] [address] [place] [address] Protein (U) [Mass/Vol] 30 mg/dL Abnormal Negative [facility] Comment on above: Result Comment: . Performed By: #### B NP3, TROPN, BMP3, HEMDF #### [facility] [address] [place] [address] RBC, Urine 0 - 2 Normal 0-2 [facility] Comment on above: Result Comment: . Performed By: #### B NP3, TROPN, BMP3, HEMDF #### [facility] [address] [place] [address] Specific [place],Urine 1.018 Normal 1.005 - 1.030 [facility] Comment on above: Result Comment: . Performed By: #### B NP3, TROPN, BMP3, HEMDF #### [facility] [address] [place] [address] Squamous Epithelial 0 - 2 Normal 3-5 [facility] Comment on above: Result Comment: . Performed By: #### B NP3, TROPN, BMP3, HEMDF #### [facility] [address] [place] [address] Urobilinogen,Urine 2 mg/dL Abnormal Normal (0-1) [facility] Comment on above: Result Comment: . Performed By: #### B NP3, TROPN, BMP3, HEMDF #### [facility] [address] [place] [address] WBC, Urine 3 - 5 Normal 0-5 [facility] Comment on above: Result Comment: Conf irmed by light microscopy. . Performed By: #### B NP3, TROPN, BMP3, HEMDF #### [facility] [address] [place] [address] Comprehensive Metabolic Pane greg 09-05-2020 Albumin [Mass/Vol] 4.3 g/dL 3.5 - 5 g/dL [facility] Work Phone: ALP [Catalytic activity/Vol] 107 U/L 38 - 126 U/L [facility] Work Phone: ALT [Catalytic activity/Vol] 43 U/L 0 - 49 U/L [facility] Work Phone: Comment on above: The ALT test is perf ormed by an updated assay method. Please note that the reference intervals have been changed and are now sex specific. Anion gap [Moles/Vol] 15 mmol/L High 3 - 13 mmol/L [facility] Work Phone: AST [Catalytic activity/Vol] 84 U/L High 15 - 46 U/L [facility] Work Phone: Bilirubin Ql (U) 1.9 mg/dL High 0.2 - 1.3 mg/dL [facility] Work Phone: Calcium [Mass/Vol] 8.9 mg/dL 8.4 - 10. 4 mg/dL [facility] Work Phone: Chloride [Moles/Vol] 97 mmol/L Low 98 - 10 7 mmol/L [facility] Work Phone: CO2 [Moles/Vol] 30 mmol/L 22 - 30 mmol/L [facility] Work Phone: Creatinine [Mass/Vol] 2.73 mg/dL High 0.52 - 1.25 mg/dL [facility] Work Phone: EGFR IF NonAfrican Greenlandic 20.8 mL/min Abnormal >60 [facility] Work Phone: Comment on above: KDIGO guidelines pro vide the following GFR categories: Stage GFR(ml/min/1.73 m2) Terms G1 >=90 Normal or high G2 60-89 Mildly decreased* G3a 45-59 Mildly to moderately decreased G3b 30-44 Moderately to severely decreased G4 15-29 Severely decreased G5 <15 Kidney failure *Relative to young adult level. In the absence of evidence of kidney damage, neither GFR category G1 nor G2 fulfill the criteria for CKD. The CKD-EPI equation is validated in individuals 18 years of age and older. Currently the best equation for estimating glomerular filtration rate (GFR) from serum creatinine in children is the Bedside Robertson equation. It is less accurate in patients with extremes of muscle mass, restriction of dietary protein, ingestion of creatine, extra-renal metabolism of creatinine, or treatment with medications that affect renal tubular creatinine secretion. GFR/1.73 sq M predicted among blacks MDRD (S/P/Bld) [Vol rate/Area] 24.1 mL/min/{1.73_m2} Abnormal >60 [facility] Work Phone: Glucose [Mass/Vol] 130 mg/dL High 70 - 100 mg/dL [facility] Work Phone: Interpretation and review of laboratory results Abnormal [facility] Work Phone: Potassium [Moles/Vol] 3.9 mmol/L 3.5 - 5.1 mmol/L [facility] Work Phone: Protein [Mass/Vol] 7.1 g/dL 6.3 - 8.2 g/dL [facility] Work Phone: Sodium [Moles/Vol] 141 mmol/L 135 - 145 mmol/L [facility] Work Phone: Urea nitrogen [Mass/Vol] 39 mg/dL High 7 - 20 mg/d L [facility] Work Phone: ED Provider Noteon 1 ED Provider Note [facility] ENCOUNTER Pt Name: Megan Nascimento Birthdate 1940 Date of evaluation: 09/05/2020 Provider: Shamika Glasgow MD CHIEF COMPLAINT Chief Complaint Patient presents with ? Fatigue ? Abdominal Pain HISTORY OF PRESENT ILLNESS (Location/Symptom, Timing/Onset, Context/Setting, Quality, Duration, Modifying Factors, Severity) Note limiting factors. I wore an N95 mask for the entirety of this encounter. Does this patient come from an ECF, SNF, Rehab, Long-Term or other Congregate setting: no (If yes to above patient needs a Covid-19 test) HPI Megan Nascimento is a 80 y.o. male who presents to the emergency department with a past medical history of cholecystitis who states that he has been delaying his cholecystectomy secondary to need for pacemaker placement early next week, presenting with worsening generalize weakness, fatigue, and right upper quadrant abdominal pain. Denies chest pain. States that he has been short of breath for the past one year. Nursing Notes were reviewed. REVIEW OF SYSTEMS (2+ for level 4; 10+ for level 5) Review of Systems Pertinent positives and negatives as per history of present illness. All other systems have been reviewed and are negative. PAST MEDICAL HISTORY Past Medical History: Diagnosis Date ? Bladder cancer (HCC) ? DM (diabetes mellitus) (HCC) ? DM (diabetes mellitus) (HCC) ? DVT (deep venous thrombosis) (HCC) ? ED (erectile dysfunction) ? Follicular non-Hodgkin's lymphoma (HCC) ? GERD (gastroesophageal reflux disease) ? GERD (gastroesophageal reflux disease) ? HTN (hypertension) ? HTN (hypertension) ? Hyperlipidemia ? Non-ischemic cardiomyopathy (HCC) ? PUD (peptic ulcer disease) ? Pulmonary embolism (HCC) ? Pulmonary fibrosis (HCC) ? Rosacea ? Tachycardia SURGICAL HISTORY Past Surgical History: Procedure Laterality Date ? BONE MARROW BIOPSY ? FACIAL COSMETIC SURGERY ? LYMPH NODE BIOPSY ? SEPTOPLASTY CURRENT MEDICATIONS Discharge Medication List as of 09/05/2020 10:54 PM CONTINUE these medications which have NOT CHANGED Details sacubitril-valsartan (ENTRESTO) 49-51 MG per tablet Take 1 tablet by mouth 2 times daily, Disp-60 tablet, R-5Normal apixaban (ELIQUIS) 2.5 MG TABS tablet Take 1 tablet by mouth 2 times daily, Disp-60 tablet, R-5Normal ferrous sulfate (IRON 325) 325 (65 Fe) MG tablet Take 1 tablet by mouth 2 times daily, Disp-180 tablet,R-1Normal furosemide (LASIX) 80 MG tablet Take 1 tablet by mouth 2 times daily, Disp-180 tablet,R-3Normal gabapentin (NEURONTIN) 600 MG tablet Take 600 mg by mouth 2 times daily.Historical Med tamsulosin (FLOMAX) 0.4 MG capsule Take 0.4 mg by mouth dailyHistorical Med sildenafil (VIAGRA) 100 MG tablet Take 100 mg by mouth as needed for Erectile DysfunctionHistorica l Med pantoprazole (PROTONIX) 40 MG tablet dailyHistorical Med Multiple Vitamins-Minerals (MULTIVITAMIN ADULTS PO) Take by mouth dailyHistorical Med vitamin B-12 (CYANOCOBALAMIN) 1000 MCG tablet Take 1,000 mcg by mouth dailyHistorical Med metoprolol (TOPROL-XL) 100 MG XL tablet Take 100 mg by mouth daily Historical Med Testosterone 20.25 MG/1.25GM (1.62%) GEL Place onto the skin Coenzyme Q10 (COQ-10 PO) Take by mouth daily Cholecalciferol (VITAMIN D3) 1000 UNITS CAPS Take by mouth ALLERGIES Seasonal FAMILY HISTORY Family History Problem Relation Age of Onset ? High Blood Pressure Mother ? High Blood Pressure Father SOCIAL HISTORY Social History Socioeconomic History ? Marital status: Spouse name: None ? Number of children: None ? Years of education: None ? Highest education level: None Occupational History ? None Social Needs ? Financial resource strain: None ? Food insecurity Worry: None Inability: None ? Transportation needs Medical: None Non-medical: None Tobacco Use ? Smoking status: Former Smoker Packs/day: 1.00 Years: 40.00 Pack years: 40.00 Quit date: 11/08/1999 Years since quittin.8 ? Smokeless tobacco: Never Used Substance and Sexual Activity ? Alcohol use: Yes Comment: occationally ? Drug use: No Comment: caffeine ? Sexual activity: None Lifestyle ? Physical activity Days per week: None Minutes per session: None ? Stress: None Relationships ? Social connections Talks on phone: None Gets together: None Attends mandaeism service: None Active member of club or organization: None Attends meetings of clubs or organizations: None Relationship status: None ? Intimate partner violence Fear of current or ex partner: None Emotionally abused: None Physically abused: None Forced sexual activity: None Other Topics Concern ? None Social History Narrative ? None SCREENINGS PHYSICAL EXAM (up to 7 for level 4, 8 or more for level 5) ED Triage Vitals [09/05/20 1905] BP Temp Temp Source Pulse Resp SpO2 Height Weight 114/75 97.3 (more content not included)... Normal [facility] Hemogramon 09-05-2020 Erythrocyte distribution width (RBC) [Ratio] 32.9 % High 11.5-14.5 [facility] Comment on above: Performed By: #### B NP3, TROPN, BMP3, HEMDF #### [facility] [address] [place] [address] Hematocrit (Bld) [Volume fraction] 34.6 % Low 40.0-52.0 [facility] Comment on above: Performed By: #### B NP3, TROPN, BMP3, HEMDF #### [facility] [address] [place] [address] Hemoglobin (Bld) [Mass/Vol] 10.8 g/dL Low 13.0-18.0 [facility] Comment on above: Performed By: #### B NP3, TROPN, BMP3, HEMDF #### [facility] [address] [place] [address] MCH (RBC) [Entitic mass] 23.7 pg Low 26.0-34.0 [facility] Comment on above: Performed By: #### B NP3, TROPN, BMP3, HEMDF #### [facility] [address] [place] [address] MCHC 31.1 % Low 32.0-36.0 [facility] Comment on above: Performed By: #### B NP3, TROPN, BMP3, HEMDF #### [facility] [address] [place] [address] MCV (RBC) [Entitic vol] 76.2 fL Low 80.0-98.0 [facility] Comment on above: Performed By: #### B NP3, TROPN, BMP3, HEMDF #### [facility] [address] [place] [address] Platelet mean volume (Bld) [Entitic vol] 8.5 fL Normal 7.4-10.4 [facility] Comment on above: Performed By: #### B NP3, TROPN, BMP3, HEMDF #### [facility] [address] [place] [address] Platelets (Bld) [#/Vol] 359 10*3/uL Normal 140-440 [facility] Comment on above: Performed By: #### B NP3, TROPN, BMP3, HEMDF #### [facility] [address] [place] [address] RBC (Bld) [#/Vol] 4.54 10*6/uL Normal 4.40-5.90 [facility] Comment on above: Performed By: #### B NP3, TROPN, BMP3, HEMDF #### [facility] [address] [place] [address] WBC (Bld) [#/Vol] 6.5 10*3/uL Normal 3.6-10.7 [facility] Comment on above: Performed By: #### B NP3, TROPN, BMP3, HEMDF #### [facility] [address] [place] [address] Hemogram (CBC)on 09-05-2020 Erythrocyte distribution width (RBC) [Ratio] 32.9 % High 11.5 - 14.5 % [facility] Work Phone: Hematocrit (Bld) [Volume fraction] 34.6 % Low 40 - 52 % [facility] Work Phone: Hemoglobin (Bld) [Mass/Vol] 10.8 g/dL Low 13 - 18 g/dL [facility] Work Phone: Interpretation and review of laboratory results Abnormal [facility] Work Phone: MCH (RBC) [Entitic mass] 23.7 pg Low 26 - 34 pg [facility] Work Phone: MCHC (RBC) [Mass/Vol] 31.1 % Low 32 - 36 % [facility] Work Phone: MCV (RBC) [Entitic vol] 76.2 fL Low 80 - 98 fL [facility] Work Phone: Platelet mean volume (Bld) [Entitic vol] 8.5 fL 7.4 - 10.4 fL [facility] Work Phone: Platelets (Bld) [#/Vol] 359 10*3/uL 140 - 440 10*3/uL [facility] Work Phone: RBC (Bld) [#/Vol] 4.54 10*6/uL 4.4 - 5.9 10*6/uL [facility] Work Phone: WBC (Bld) [#/Vol] 6.5 10*3/uL 3.6 - 10.7 10*3/uL [facility] Work Phone: Test Performed by [employer], [address] [place], [place] [address] [facility] Work Phone: Lipaseon 09-05-2020 Lipase [Catalytic activity/Vol] 117 U/L Normal 23-300 [facility] [employer] Comment on above: Performed By: #### B NP3, TROPN, BMP3, HEMDF #### [facility] [address] [place] [address] Lipase [Catalytic activity/Vol] 117 U/L 23 - 300 U/L [facility] Work Phone: Otheron 09-05-2020 Test Performed by [employer], [address] [place], [place] [address] [facility] Work Phone: US ABDOMEN LIMITED Specify o rgan? GALLBLADDERon 09-05-2020 Patient Name: MEGAN NASCIMENTO Ultrasound ACCESSION EXAM DATE/TIME PROCEDURE ORDERING PROVIDER [id number] 09/05/2020 22:05 EST US Abdomen Limited [id number] SANDOVAL CPT code 54172 Reason For Exam (US Abdomen Limited) RUQ abdomen Report ULTRASOUND OF THE RIGHT UPPER QUADRANT CLINICAL INDICATION: RUQ abdomen TECHNIQUE: Real-time ultrasound of the right upper quadrant of the abdomen. COMPARISON: CT scan from the same day FINDINGS: Liver shows coarse echotexture which could be related to intrinsic hepatocellular disease, and given some marginal nodularity cirrhosis is likely. No focal lesion seen. No biliary tree dilatation. Gallbladder wall slightly thickened at 4 mm, sludge and stones noted. Positive sonographic Kaplan sign. Common bile duct is 4 mm. Pancreas cannot be seen. Right kidney measures 9.8 x 6.1 x 5.7 cm with no evidence of hydronephrosis. Tiny right renal calculus measures 6 mm. Several right renal cysts. Segments visualized of aorta and IVC appear unremarkable, overlying bowel gas limits evaluation. Small amount of ascites. Large right pleural effusion. IMPRESSION: 1. Slight gallbladder wall thickening, stones and sludge in the gallbladder. Positive sonographic Kaplan sign raises possibility of acute cholecystitis. 2. Coarse hepatic echotexture with nodular hepatic contour likely related to cirrhosis. 3. Right renal calculus. Ascites. Right pleural effusion. Report Dictated on --- Final --- Dictating Physician: MD RAMIREZ JOHN R Signed Date and Time: 09/05/2020 10:45 pm Signed by: MD RAMIREZ JOHN R Transcribed Date and Time: 09/05/2020 10:46 [facility] Work Phone: [facility] From [facility] - 09/05/2020 10:46 PM EST [facility]: [id number] Ul[facility]ound ACCESSION EXAM DATE/TIME PROCEDURE ORDERING PROVIDER [id number] 09/05/2020 22:05 EST US Abdomen Limited [id number] -Shamika GLASGOW CPT code 60373 Reason For Exam (US Abdomen Limited) RUQ abdomen Report ULTRASOUND OF THE RIGHT UPPER QUADRANT CLINICAL INDICATION: RUQ abdomen TECHNIQUE: Real-time ultrasound of the right upper quadrant of the abdomen. COMPARISON: CT scan from the same day FINDINGS: Liver shows coarse echotexture which could be related to intrinsic hepatocellular disease, and given some marginal nodularity cirrhosis is likely. No focal lesion seen. No biliary tree dilatation. Gallbladder wall slightly thickened at 4 mm, sludge and stones noted. Positive sonographic Kaplan sign. Common bile duct is 4 mm. Pancreas cannot be seen. Right kidney measures 9.8 x 6.1 x 5.7 cm with no evidence of hydronephrosis. Tiny right renal calculus measures 6 mm. Several right renal cysts. Segments visualized of aorta and IVC appear unremarkable, overlying bowel gas limits evaluation. Small amount of ascites. Large right pleural effusion. IMPRESSION: 1. Slight gallbladder wall thickening, stones and sludge in the gallbladder. Positive sonographic Kaplan sign raises possibility of acute cholecystitis. 2. Coarse hepatic echotexture with nodular hepatic contour likely related to cirrhosis. 3. Right renal calculus. Ascites. Right pleural effusion. Report Dictated on --- Final --- Dictating Physician: MD RAMIREZ JOHN R Signed Date and Time: 09/05/2020 10:45 pm Signed by: MD RAMIREZ JOHN R Transcribed Date and Time: 09/05/2020 10:46 [facility] Work Phone: US Abdomen Limitedon 021 US Abdomen Limited Patient Name: MEGAN NASCIMENTO Ultrasound ACCESSION EXAM DATE/TIME PROCEDURE ORDERING PROVIDER [id number] 09/05/2020 22:05 EST US Abdomen Limited [id number] Shamika NAGY CPT code 57039 Reason For Exam (US Abdomen Limited) RUQ abdomen Report ULTRASOUND OF THE RIGHT UPPER QUADRANT CLINICAL INDICATION: RUQ abdomen TECHNIQUE: Real-time ultrasound of the right upper quadrant of the abdomen. COMPARISON: CT scan from the same day FINDINGS: Liver shows coarse echotexture which could be related to intrinsic hepatocellular disease, and given some marginal nodularity cirrhosis is likely. No focal lesion seen. No biliary tree dilatation. Gallbladder wall slightly thickened at 4 mm, sludge and stones noted. Positive sonographic Kaplan sign. Common bile duct is 4 mm. Pancreas cannot be seen. Right kidney measures 9.8 x 6.1 x 5.7 cm with no evidence of hydronephrosis. Tiny right renal calculus measures 6 mm. Several right renal cysts. Segments visualized of aorta and IVC appear unremarkable, overlying bowel gas limits evaluation. Small amount of ascites. Large right pleural effusion. IMPRESSION: 1. Slight gallbladder wall thickening, stones and sludge in the gallbladder. Positive sonographic Kaplan sign raises possibility of acute cholecystitis. 2. Coarse hepatic echotexture with nodular hepatic contour likely related to cirrhosis. 3. Right renal calculus. Ascites. Right pleural effusion. Report Dictated on Final Dictating Physician: MD RAMIREZ JOHN R Signed Date and Time: 09/05/2020 10:45 pm Signed by: MD RAMIREZ JOHN R Transcribed Date and Time: 09/05/2020 10:46 Normal [facility] [facility] Urinalysison 09-05-2020 Appearance (U) Clear Clear NA [employer] Work Phone: Comment on above: . Bacteria, UA Few Abnormal Negative /[HPF] [facility] Work Phone: Comment on above: . Bilirubin Urine Negative Negative mg/dL [facility] Work Phone: Comment on above: . Color (U) Dark-Yellow Abnormal Lt. Yellow NA [employer] Work Phone: Comment on above: . Glucose, Ur Normal Normal (<70) mg/dL [employer] Work Phone: Comment on above: . Hyaline Casts, UA 26-50 Abnormal Negative /[LPF] [facility] Work Phone: Comment on above: . Interpretation and review of laboratory results Abnormal [facility] Work Phone: Ketones Ql (U) Negative Negative mg/dL [facility] Work Phone: Comment on above: . LEUKOCYTES, UA Negative Negative Sp/uL [facility] Work Phone: Comment on above: . Mucous Threads Few Negative /[LPF] [facility] Work Phone: Comment on above: . Nitrite, Urine Negative Negative NA [facility] Work Phone: Comment on above: . Non-Squamous Epithelial <1 Abnormal Nega tive /[HPF] [employer] Work Phone: Comment on above: . Occult Blood,Urine Negative Negative mg/dL [facility] Work Phone: Comment on above: . pH (U) 5.0 [pH] [facility] Work Phone: Comment on above: . Protein (U) [Mass/Vol] 30 mg/dL Abnormal Negative [facility] Work Phone: Comment on above: . RBC (U) [#/Vol] 0-2 0 - 2 /[HPF] [facility] Work Phone: Comment on above: . Specific [place], Urine 1.018 [facility] Work Phone: Comment on above: . Squam Epithel, UA 0-2 3 - 5 /[HPF] [facility] Work Phone: Comment on above: . Urobilinogen, Urine 2 mg/dL Abnormal Normal (0-1) [facility] Work Phone: Comment on above: . WBC, UA 3-5 0 - 5 /[HPF] [facility] Work Phone: Comment on above: Confirmed by light m icroscopy. . Test Performed by [employer], [address] [place] [id number] [place] [address] Work Phone: Echo 2D Doppler Coloron 02-0 TRANSTHORACIC ECHOCARDIOGRAM PATIENT: Megan Nascimento STUDY DATE: 08/23/2020 : 1940 AGE: 80 HT/WT: 172.7 cm (68 85.7 kg in) (188.6 lb) GENDER: M BP: 103 / 48 LOCATION: [facility] PATIENT Outpatient [facility] STATUS: *ORDERING PHYSICIAN: * Ralph Roth MD *READING PHYSICIAN: * Zoë, *INFORMATION TECHNOLOGY ANALYST: * Shirin Sim RDCS,AE, PE, RVT INDICATIONS: SOB. CONCLUSIONS SUMMARY: 1. Left ventricle: Systolic function is by the biplane method of disks. The estimated ejection fraction is 14%. Severe diffuse hypokinesis with regional variations. Unable to assess LV diastolic function due to severe mitral regurgitation 2. Right ventricle: The cavity size is moderately dilated. Systolic function is mildly decreased by visual assessment. 3. Left atrium: The atrium is severely dilated. 4. Right atrium: The atrium is severely dilated. 5. Mitral valve: There is moderate-severe, 3+ regurgitation, directed eccentrically and toward the septum. ERO: 0.06 cm^2. 6. Aortic valve: Mildly thickened, mildly calcified leaflets. There is mild-moderate, 1-2+ regurgitation. 7. Tricuspid valve: There is moderate-severe, 3+ regurgitation. The effective regurgitant orifice (PISA) is 0.2 cm^2. 8. Aorta: The aorta is poorly visualized and moderately dilated. The ascending aorta maximal dimension is 4.2 cm. 9. Pericardium, extracardiac: There is no pericardial effusion. There is a right pleural effusion. 10. Pulmonary arteries: Systolic pressure is moderately increased, estimated to be 55 mm Hg. 11. Inferior vena cava: The vessel is dilated. The IVC collapses by less than 50% with inspiration. STUDY DATA: Complete transthoracic echocardiogram. Procedure: Image quality was adequate. Intravenous imaging enhancement (Definity) was administered to opacify the chamber. Definity lot #: [id number]. M-mode, complete 2D, complete spectral Doppler, and color flow Doppler images were acquired and archived for permanent storage and are available for subsequent review. Study status: Routine. Patient status: Outpatient. FINDINGS LEFT VENTRICLE: The cavity size is normal. Wall thickness is normal. Systolic function is by the biplane method of disks. The estimated ejection fraction is 14%. Severe diffuse hypokinesis with regional variations. Unable to assess LV diastolic function due to severe mitral regurgitation RIGHT VENTRICLE: The cavity size is moderately dilated. Systolic function is mildly decreased by visual assessment. VENTRICULAR SEPTUM: There is no evidence of a ventricular septal defect. LEFT ATRIUM: The atrium is severely dilated. RIGHT ATRIUM: The atrium is severely dilated. ATRIAL SEPTUM: Color Doppler shows no shunt. MITRAL VALVE: Structurally normal valve. Doppler: There is moderate-severe, 3+ regurgitation, directed eccentrically and toward the septum. ERO: 0.06 cm^2. AORTIC VALVE: Mildly thickened, mildly calcified leaflets. Doppler: There is mild-moderate, 1-2+ regurgitation. TRICUSPID VALVE: Structurally normal valve. Doppler: There is moderate-severe, 3+ regurgitation. The effective regurgitant orifice (PISA) is 0.2 cm^2. PULMONIC VALVE: Structurally normal valve. Doppler: There is trivial, less than 1+ regurgitation. AORTA: The aorta is poorly visualized and moderately dilated. PULMONARY ARTERY: Systolic pressure is moderately increased, estimated to be 55 mm Hg. Main pulmonary artery: Normal. PERICARDIUM: There is no pericardial effusion. There is a right pleural effusion. SYSTEMIC VEINS: Inferior vena cava: The vessel is dilated. The IVC collapses by less than 50% with inspiration. Measurements Value Reference Ascending aorta ID, max (H) 4.2 cm 2.2 - 3.8 Ascending aorta ID/bsa, max (H) 2.0 cm/m^2 1.1 - 1.9 Ascending aorta ID, A-P, S 4.2 cm Ascending aorta ID/bsa, A-P, S 2.1 cm/m^2 Left ventricle Value Reference LV ID, ED 5.4 cm 4.2 - 5.8 LV ID, ES (H) 5.1 cm 2.5 - 4.0 LV ID/bsa, ED 2.6 cm/m^2 2.2 - 3.0 LV ID/bsa, ES (H) 2.5 cm/m^2 1.3 - 2.1 LV PW thickness, ED 1.0 cm 0.6 - 1.0 LV PW/LV ID ratio, ED 0.19 LV wall mass 184 g 96 - 200 LV wall mass/bsa 90 g/m^2 50 - 102 Stroke volume/bsa, 1-p A2C 19.9 ml/m^2 LV end-diastolic volume, 1-p A4C (H) 249 ml 69 - 185 LV end-systolic volume, 1-p A4C (H) 213 ml 22 - 78 LV end-diastolic volume, 2-p (H) 267 ml 62 - 150 LV end-systolic volume, 2-p (H) 229 ml 21 - 61 LV ejection fraction, 2-p (L) 14 % 52 - 72 Ventricular septum Value Reference IVS thickness, ED 0.8 cm 0.6 - 1.0 LVOT Value Reference LVOT ID, A-P 2.0 cm LVOT mean velocity, S 0.3 m/sec LVOT peak gradient, S 1 mm Hg Stroke volume (SV), LVOT DP 20 ml Stroke index (SV/bsa), LVOT DP 10 ml/m^2 Aortic valve Value Reference Aortic regurg pressure half-time 265 ms Left atrium Value Reference LA volume/bsa, ES, 2-p (H) 65 ml/m^2 16 - 34 Mitral valve Value Reference ERO 0.0 cm^2 Tricuspid valve Value Reference Tricuspid regurg peak velocity (H) 3.2 m/sec <=2.8 Tricuspid peak RV-RA gradient 40 mm Hg Tricuspid ERO, PISA 0.2 cm^2 Right atrium Value Reference RA area, ES, A4C (H) 35 cm^2 10 - 18 Right ventricle Value Reference RV ID, minor axis, ED, A4C base (H) 4.2 cm 2.5 - 4.1 RV ID, minor axis, ED, A4C mid (H) 4.0 cm 1.9 - 3.5 TAPSE, 2D 2.0 cm 1.7 - 3.1 RV s', lateral 12.9 cm/sec 6.0 - 13.4 Legend: (L) and (H) les values outside specified reference range. Electronically signed by Chiquis Camp 08/23/2020 17:30 Prior Signatures: [facility] Incoming Cardiology Results From [facility] - 08/23/2020 5:31 PM EST TRANSTHORACIC ECHOCARDIOGRAM PATIENT: Megan Nascimento STUDY DATE: 08/23/2020 : 1940 AGE: 80 HT/WT: 172.7 cm (68 85.7 kg in) (188.6 lb) GENDER: M BP: 103 / 48 LOCATION: [facility] PATIENT Outpatient [facility] STATUS: *ORDERING PHYSICIAN: * Ralph Roth MD *READING PHYSICIAN: * Zoë, *INFORMATION TECHNOLOGY ANALYST: * Shirin Sim RDCS,AE, PE, RVT INDICATIONS: SOB. CONCLUSIONS SUMMARY: 1. Left ventricle: Systolic function is by the biplane method of disks. The estimated ejection fraction is 14%. Severe diffuse hypokinesis with regional variations. Unable to assess LV diastolic function due to severe mitral regurgitation 2. Right ventricle: The cavity size is moderately dilated. Systolic function is mildly decreased by visual assessment. 3. Left atrium: The atrium is severely dilated. 4. Right atrium: The atrium is severely dilated. 5. Mitral valve: There is moderate-severe, 3+ regurgitation, directed eccentrically and toward the septum. ERO: 0.06 cm^2. 6. Aortic valve: Mildly thickened, mildly calcified leaflets. There is mild-moderate, 1-2+ regurgitation. 7. Tricuspid valve: There is moderate-severe, 3+ regurgitation. The effective regurgitant orifice (PISA) is 0.2 cm^2. 8. Aorta: The aorta is poorly visualized and moderately dilated. The ascending aorta maximal dimension is 4.2 cm. 9. Pericardium, extracardiac: There is no pericardial effusion. There is a right pleural effusion. 10. Pulmonary arteries: Systolic pressure is moderately increased, estimated to be 55 mm Hg. 11. Inferior vena cava: The vessel is dilated. The IVC collapses by less than 50% with inspiration. STUDY DATA: Complete transthoracic echocardiogram. Procedure: Image quality was adequate. Intravenous imaging enhancement (Definity) was administered to opacify the chamber. Definity lot #: [id number]. M-mode, complete 2D, complete spectral Doppler, and color flow Doppler images were acquired and archived for permanent storage and are available for subsequent review. Study status: Routine. Patient status: Outpatient. FINDINGS LEFT VENTRICLE: The cavity size is normal. Wall thickness is normal. Systolic function is by the biplane method of disks. The estimated ejection fraction is 14%. Severe diffuse hypokinesis with regional variations. Unable to assess LV diastolic function due to severe mitral regurgitation RIGHT VENTRICLE: The cavity size is moderately dilated. Systolic function is mildly decreased by visual assessment. VENTRICULAR SEPTUM: There is no evidence of a ventricular septal defect. LEFT ATRIUM: The atrium is severely dilated. RIGHT ATRIUM: The atrium is severely dilated. ATRIAL SEPTUM: Color Doppler shows no shunt. MITRAL VALVE: Structurally normal valve. Doppler: There is moderate-severe, 3+ regurgitation, directed eccentrically and toward the septum. ERO: 0.06 cm^2. AORTIC VALVE: Mildly thickened, mildly calcified leaflets. Doppler: There is mild-moderate, 1-2+ regurgitation. TRICUSPID VALVE: Structurally normal valve. Doppler: There is moderate-severe, 3+ regurgitation. The effective regurgitant orifice (PISA) is 0.2 cm^2. PULMONIC VALVE: Structurally normal valve. Doppler: There is trivial, less than 1+ regurgitation. AORTA: The aorta is poorly visualized and moderately dilated. PULMONARY ARTERY: Systolic pressure is moderately increased, estimated to be 55 mm Hg. Main pulmonary artery: Normal. PERICARDIUM: There is no pericardial effusion. There is a right pleural effusion. SYSTEMIC VEINS: Inferior vena cava: The vessel is dilated. The IVC collapses by less than 50% with inspiration. Measurements Value Reference Ascending aorta ID, max (H) 4.2 cm 2.2 - 3.8 Ascending aorta ID/bsa, max (H) 2.0 cm/m^2 1.1 - 1.9 Ascending aorta ID, A-P, S 4.2 cm Ascending aorta ID/bsa, A-P, S 2.1 cm/m^2 Left ventricle Value Reference LV ID, ED 5.4 cm 4.2 - 5.8 LV ID, ES (H) 5.1 cm 2.5 - 4.0 LV ID/bsa, ED 2.6 cm/m^2 2.2 - 3.0 LV ID/bsa, ES (H) 2.5 cm/m^2 1.3 - 2.1 LV PW thickness, ED 1.0 cm 0.6 - 1.0 LV PW/LV ID ratio, ED 0.19 LV wall mass 184 g 96 - 200 LV wall mass/bsa 90 g/m^2 50 - 102 Stroke volume/bsa, 1-p A2C 19.9 ml/m^2 LV end-diastolic volume, 1-p A4C (H) 249 ml 69 - 185 LV end-systolic volume, 1-p A4C (H) 213 ml 22 - 78 LV end-diastolic volume, 2-p (H) 267 ml 62 - 150 LV end-systolic volume, 2-p (H) 229 ml 21 - 61 LV ejection fraction, 2-p (L) 14 % 52 - 72 Ventricular septum Value Reference IVS thickness, ED 0.8 cm 0.6 - 1.0 LVOT Value Reference LVOT ID, A-P 2.0 cm LVOT mean velocity, S 0.3 m/sec LVOT peak gradient, S 1 mm Hg Stroke volume (SV), LVOT DP 20 ml Stroke index (SV/bsa), LVOT DP 10 ml/m^2 Aortic valve Value Reference Aortic regurg pressure half-time 265 ms Left atrium Value Reference LA volume/bsa, ES, 2-p (H) 65 ml/m^2 16 - 34 Mitral valve Value Reference ERO 0.0 cm^2 Tricuspid valve Value Reference Tricuspid regurg peak velocity (H) 3.2 m/sec <=2.8 Tricuspid peak RV-RA gradient 40 mm Hg Tricuspid ERO, PISA 0.2 cm^2 Right atrium Value Reference RA area, ES, A4C (H) 35 cm^2 10 - 18 Right ventricle Value Reference RV ID, minor axis, ED, A4C base (H) 4.2 cm 2.5 - 4.1 RV ID, minor axis, ED, A4C mid (H) 4.0 cm 1.9 - 3.5 TAPSE, 2D 2.0 cm 1.7 - 3.1 RV s', lateral 12.9 cm/sec 6.0 - 13.4 Legend: (L) and (H) les values outside specified reference range. Electronically signed by Chiquis Camp 08/23/2020 17:30 Prior Signatures[facility] Echo Complete w/wo Contrasto n 08-23-2020 Echo Complete w/wo Contrast Patient Name: MEGAN NASCIMENTO Ultrasound ACCESSION EXAM DATE/TIME PROCEDURE ORDERING PROVIDER [id number] 08/23/2020 15:09 EST Echo Complete w/wo RALPH ROTH Reason For Exam (Echo Complete w/wo Contrast) sob Report TRANSTHORACIC ECHOCARDIOGRAM PATIENT: Megan Nascimento STUDY DATE: 08/23/2020 : 1940 AGE: 80 HT/WT: 172.7 cm (68 85.7 kg in) (188.6 lb) GENDER: M BP: 103 / 48 LOCATION: [facility] PATIENT Outpatient [facility] STATUS: *ORDERING PHYSICIAN: * Ralph Roth MD *READING PHYSICIAN: * Zoë, *INFORMATION TECHNOLOGY ANALYST: * Shirin Sim RDCS,AE, PE, RVT INDICATIONS: SOB. CONCLUSIONS SUMMARY: 1. Left ventricle: Systolic function is by the biplane method of disks. The estimated ejection fraction is 14%. Severe diffuse hypokinesis with regional variations. Unable to assess LV diastolic function due to severe mitral regurgitation 2. Right ventricle: The cavity size is moderately dilated. Systolic function is mildly decreased by visual assessment. 3. Left atrium: The atrium is severely dilated. 4. Right atrium: The atrium is severely dilated. 5. Mitral valve: There is moderate-severe, 3+ regurgitation, directed eccentrically and toward the septum. ERO: 0.06 cm^2. 6. Aortic valve: Mildly thickened, mildly calcified leaflets. There is mild-moderate, 1-2+ regurgitation. 7. Tricuspid valve: There is moderate-severe, 3+ regurgitation. The effective regurgitant orifice (PISA) is 0.2 cm^2. 8. Aorta: The aorta is poorly visualized and moderately dilated. The ascending aorta maximal dimension is 4.2 cm. 9. Pericardium, extracardiac: There is no pericardial effusion. There is a right pleural effusion. 10. Pulmonary arteries: Systolic pressure is moderately increased, estimated to be 55 mm Hg. 11. Inferior vena cava: The vessel is dilated. The IVC collapses by less than 50% with inspiration. Ultrasound Report STUDY DATA: Complete transthoracic echocardiogram. Procedure: Image quality was adequate. Intravenous imaging enhancement (Definity) was administered to opacify the chamber. Definity lot #: [id number]. M-mode, complete 2D, complete spectral Doppler, and color flow Doppler images were acquired and archived for permanent storage and are available for subsequent review. Study status: Routine. Patient status: Outpatient. FINDINGS LEFT VENTRICLE: The cavity size is normal. Wall thickness is normal. Systolic function is by the biplane method of disks. The estimated ejection fraction is 14%. Severe diffuse hypokinesis with regional variations. Unable to assess LV diastolic function due to severe mitral regurgitation RIGHT VENTRICLE: The cavity size is moderately dilated. Systolic function is mildly decreased by visual assessment. VENTRICULAR SEPTUM: There is no evidence of a ventricular septal defect. LEFT ATRIUM: The atrium is severely dilated. RIGHT ATRIUM: The atrium is severely dilated. ATRIAL SEPTUM: Color Doppler shows no shunt. MITRAL VALVE: Structurally normal valve. Doppler: There is moderate-severe, 3+ regurgitation, directed eccentrically and toward the septum. ERO: 0.06 cm^2. AORTIC VALVE: Mildly thickened, mildly calcified leaflets. Doppler: There is mild-moderate, 1-2+ regurgitation. TRICUSPID VALVE: Structurally normal valve. Doppler: There is moderate-severe, 3+ regurgitation. The effective regurgitant orifice (PISA) is 0.2 cm^2. PULMONIC VALVE: Structurally normal valve. Doppler: There is trivial, less than 1+ regurgitation. AORTA: The aorta is poorly visualized and moderately dilated. PULMONARY ARTERY: Systolic pressure is moderately increased, estimated to be 55 mm Hg. Main pulmonary artery: Normal. PERICARDIUM: There is no pericardial effusion. There is a right pleural effusion. SYSTEMIC VEINS: Inferior vena cava: The vessel is dilated. The IVC collapses by less than 50% with inspiration. Measurements Value Reference Ascending aorta ID, max (H) 4.2 cm 2.2 - 3.8 Ascending aorta ID/bsa, max (H) 2.0 cm/m^2 1.1 - 1.9 Ascending aorta ID, A-P, S 4.2 cm Ascending aorta ID/bsa, A-P, S 2.1 cm/m^2 Left ventricle Value Reference LV ID, ED 5.4 cm 4.2 - 5.8 LV ID, ES (H) 5.1 cm 2.5 - 4.0 LV ID/bsa, ED 2.6 cm/m^2 2.2 - 3.0 LV ID/bsa, ES (H) 2.5 cm/m^2 1.3 - 2.1 LV PW thickness, ED 1.0 cm 0.6 - 1.0 LV PW/LV ID ratio, ED 0.19 LV wall mass 184 g 96 - 200 LV wall mass/bsa 90 g/m^2 50 - 102 St (more content not included)... Normal [email or web address] Basic Metabolic Panelon 12-0 Anion gap [Moles/Vol] 10 mmol/L [place], [place] Calcium [Mass/Vol] 8.9 mg/dL 8.4 - 10. 4 mg/dL [place] Chloride [Moles/Vol] 96 mmol/L Low 98 - 10 7 mmol/L [place] CO2 [Moles/Vol] 30 mmol/L 22 - 30 mmol/L [place] Creatinine [Mass/Vol] 1.51 mg/dL High 0.52 - 1.25 mg/dL [place] EGFR IF NonAfrican [place]ic 42.7 mL/min Abnormal >60 [place] Comment on above: KDIGO guidelines pro vide the following GFR categories: Stage GFR(ml/min/1.73 m2) Terms G1 >=90 Normal or high G2 60-89 Mildly decreased* G3a 45-59 Mildly to moderately decreased G3b 30-44 Moderately to severely decreased G4 15-29 Severely decreased G5 <15 Kidney failure *Relative to young adult level. In the absence of evidence of kidney damage, neither GFR category G1 nor G2 fulfill the criteria for CKD. The CKD-EPI equation is validated in individuals 18 years of age and older. Currently the best equation for estimating glomerular filtration rate (GFR) from serum creatinine in children is the Bedside Robertson equation. It is less accurate in patients with extremes of muscle mass, restriction of dietary protein, ingestion of creatine, extra-renal metabolism of creatinine, or treatment with medications that affect renal tubular creatinine secretion. GFR/1.73 sq M predicted among blacks MDRD (S/P/Bld) [Vol rate/Area] 49.5 mL/min/{1.73_m2} Abnormal >60 [place] Glucose [Mass/Vol] 111 mg/dL High 70 - 100 mg/dL [place] Interpretation and review of laboratory results Abnormal [place] Potassium [Moles/Vol] 3.7 mmol/L 3.5 - 5.1 mmol/L [place] Sodium [Moles/Vol] 136 mmol/L 135 - 145 mmol/L [place] Urea nitrogen [Mass/Vol] 39 mg/dL High 7 - 20 mg/d L [place] Test Performed by [facility], [address] [place] [id number] [place] [facility]Con 06-27-2020 Erythrocyte distribution width (RBC) [Ratio] 18.5 % High 11.5 - 14.5 % [place] Hematocrit (Bld) [Volume fraction] 31.1 % Low 40 - 52 % [place] Hemoglobin (Bld) [Mass/Vol] 9.6 g/dL Low 13 - 18 g/dL [place] Interpretation and review of laboratory results Abnormal [place] MCH (RBC) [Entitic mass] 23.2 pg Low 26 - 34 pg [place] MCHC (RBC) [Mass/Vol] 30.7 % Low 32 - 36 % [place] MCV (RBC) [Entitic vol] 75.4 fL Low 80 - 98 fL M [place], [place] Platelet mean volume (Bld) [Entitic vol] 8.1 fL 7.4 - 10.4 fL [place] Platelets (Bld) [#/Vol] 317 10*3/uL 140 - 440 10*3/uL [place] RBC (Bld) [#/Vol] 4.13 10*6/uL Low 4.4 - 5.9 10*6/uL [place] WBC (Bld) [#/Vol] 8.0 10*3/uL 3.6 - 10.7 10*3/uL [place] Test Performed by [address] [address] [place] Vital Signs Date Time Vital Sign Value Performing Clinician Facility 04-01-2025 16:00-0400 Diastolic blood pressure 81 mm[Hg] Dr. Rigoberto Durand MD Work Phone: [facility] 04-01-2025 16:00-0400 Heart rate 60 /min Dr. Rigoberto Durand MD Work Phone: [phone] [address] 04-01-2025 16:00-0400 SaO2% (BldA) [Mass fraction] 95 % Dr. Rigoberto Durand MD Work Phone: [phone] [address] 04-01-2025 16:00-0400 Systolic blood pressure 128 mm[Hg] Dr. Rigoberto Durand MD Work Phone: [facility] 04-01-2025 15:53-0400 Body temperature 97.5 [degF] Dr. Rigoberto Durand MD Work Phone: [phone] [address] 04-01-2025 15:53-0400 Respiratory rate 21 /min Dr. Rigoberto Durand MD Work Phone: [phone] [address] 04-01-2025 12:34-0400 Body height 170.[address] Rigoberto Durand MD Work Phone: [phone] [address] 04-01-2025 12:34-0400 Body mass index (BMI) [Ratio] 30.7 kg/m2 Dr. Rigoberto Durand MD Work Phone: [phone])[phone] [place] [address] 04-01-2025 12:34-0400 Body weight 89.[address] Rigoberto Durand MD Work Phone: [facility] 03-03-2025 14:19-0400 Body height 170.2 cm Petra Peterson CNP Work Phone: [facility] 03-03-2025 14:19-0400 Body mass index (BMI) [Ratio] 28.66 kg/m2 Petra Renteria [employer]S ENGINEER - [employer] Work Phone: [email or web address] 03-03-2025 14:19-0400 Body weight 83.01 kg Petra Renteria [employer] SEC[employer]ITY SYSTEMS ENGINEER - [employer] Work Phone: [email or web address] 03-03-2025 14:19-0400 Diastolic blood pressure 64 mm[Hg] Petra Renteria [employer] SEC[employer]ITY SYSTEMS ENGINEER - [employer] Work Phone: [email or web address] 03-03-2025 14:19-0400 Heart rate 60 /min Petra Renteria [employer] SEC[employer]ITY SYSTEMS ENGINEER - [employer] Work Phone: [email or web address] 03-03-2025 14:19-0400 SaO2% (BldA) [Mass fraction] 100 % Petra Renteria [employer]ITY SYSTEMS ENGINEER - [employer] Work Phone: [email or web address] 03-03-2025 14:19-0400 Systolic blood pressure 92 mm[Hg] Petra Renteria APRN - [employer] Work Phone: [email or web address] 02-15-2025 08:08-0400 Body temperature 96.3 [degF] Latricia Landa DO Work Phone: [email or web address] 02-15-2025 08:08-0400 Diastolic blood pressure 76 mm[Hg] Latricia Landa DO Work Phone: [email or web address] 02-15-2025 08:08-0400 Heart rate 83 /min Latricia Landa DO Work Phone: [facility] 02-15-2025 08:08-0400 Respiratory rate 18 /min Latricia Landa DO Work Phone: [facility] 02-15-2025 08:08-0400 SaO2% (BldA) [Mass fraction] 97 % Latricia Landa DO Work Phone: [email or web address] 02-15-2025 08:08-0400 Systolic blood pressure 137 mm[Hg] Latricia Landa DO Work Phone: [email or web address] 02-12-2025 08:18-0400 Body height 170.2 cm Latricia Landa DO Work Phone: [email or web address] 02-10-2025 12:06-0400 Body mass index (BMI) [Ratio] 28.51 kg/m2 Latricia Landa DO Work Phone: [facility] 02-10-2025 12:06-0400 Body weight 82.56 kg Latricia Landa DO Work Phone: [facility] 02-01-2025 15:24-0400 Body temperature 97 [degF] Latricia Landa DO Work Phone: [facility] 02-01-2025 15:24-0400 Diastolic blood pressure 75 mm[Hg] Latricia Landa DO Work Phone: [facility] 02-01-2025 15:24-0400 Heart rate 79 /min Latricia Landa DO Work Phone: [facility] 02-01-2025 15:24-0400 Respiratory rate 18 /min Latricia Landa DO Work Phone: [facility] 02-01-2025 15:24-0400 SaO2% (BldA) [Mass fraction] 97 % Latricia Landa DO Work Phone: [facility] 02-01-2025 15:24-0400 Systolic blood pressure 122 mm[Hg] Latricia Landa DO Work Phone: [email or web address] 02-01-2025 02:16-0400 Body mass index (BMI) [Ratio] 29.23 kg/m2 Latricia Landa DO Work Phone: [facility] 02-01-2025 02:16-0400 Body weight 84.64 kg Latricia Landa DO Work Phone: [email or web address] 01-31-2025 11:14-0400 Body height 170.2 cm Latricia Landa DO Work Phone: [facility] 01-26-2025 15:46-0400 Body height 170.2 cm Ralph Roth MD Work Phone: [facility] 01-26-2025 15:46-0400 Body mass index (BMI) [Ratio] 30.48 kg/m2 Ralph Roth MD Work Phone: [facility] 01-26-2025 15:46-0400 Body weight 88.27 kg Ralph Roth MD Work Phone: [facility] 01-26-2025 15:46-0400 Diastolic blood pressure 80 mm[Hg] Ralph Roth MD Work Phone: [facility] 01-26-2025 15:46-0400 Heart rate 79 /min Ralph Roth MD Work Phone: [facility] 01-26-2025 15:46-0400 SaO2% (BldA) [Mass fraction] 100 % Ralph Roth MD Work Phone: [facility] 01-26-2025 15:46-0400 Systolic blood pressure 124 mm[Hg] Ralph Roth MD Work Phone: [facility] 12-12-2024 15:03-0400 Body temperature 98 [degF] Dr. Rigoberto Durand MD Work Phone: [facility] 12-12-2024 15:03-0400 Diastolic blood pressure 77 mm[Hg] Dr. Rigoberto Durand MD Work Phone: [facility] 12-12-2024 15:03-0400 Heart rate 71 /min Dr. Rigoberto Durand MD Work Phone: [facility] 12-12-2024 15:03-0400 Respiratory rate 19 /min Dr. Rigoberto Durand MD Work Phone: [facility] 12-12-2024 15:03-0400 SaO2% (BldA) [Mass fraction] 95 % Dr. Rigoberto Durand MD Work Phone: [facility] 12-12-2024 15:03-0400 Systolic blood pressure 138 mm[Hg] Dr. Rigoberto Durand MD Work Phone: [facility] 12-12-2024 10:32-0400 Body height 170.[address] Rigoberto Durand MD Work Phone: [facility] 09-22-2024 15:10-0500 Body height 170.2 cm Ralph Roth MD Work Phone: [facility] 09-22-2024 15:10-0500 Body mass index (BMI) [Ratio] 28.19 kg/m2 Ralph Roth MD Work Phone: [facility] 09-22-2024 15:10-0500 Body weight 81.65 kg Ralph Roth MD Work Phone: [facility] 09-22-2024 15:10-0500 Diastolic blood pressure 68 mm[Hg] Ralph Roth MD Work Phone: [facility] 09-22-2024 15:10-0500 Systolic blood pressure 136 mm[Hg] Ralph Roth MD Work Phone: [facility] 01-09-2024 11:03-0400 Body height 170.2 cm Petra Dexter [employer]S ENGINEER - [employer] Work Phone: [email or web address] 01-09-2024 11:03-0400 Body mass index (BMI) [Ratio] 28.04 kg/m2 Petra Dexter [employer] SYSTEMS ENGINEER - [employer] Work Phone: [email or web address] 01-09-2024 11:03-0400 Body weight 81.19 kg Petra Dexter [employer] SYSTEMS ENGINEER - [employer] Work Phone: [email or web address] 01-09-2024 11:03-0400 Diastolic blood pressure 78 mm[Hg] Petra Dexter [employer] SYSTEMS ENGINEER - [employer] Work Phone: [email or web address] 01-09-2024 11:03-0400 Heart rate 88 /min Petra Friedmanlak [employer] SYSTEMS ENGINEER - [employer] Work Phone: [email or web address] 01-09-2024 11:03-0400 SaO2% (BldA) [Mass fraction] 97 % Petra Renteria [employer] SYSTEMS ENGINEER - [employer] Work Phone: [facility] 01-09-2024 11:03-0400 Systolic blood pressure 120 mm[Hg] Petra Renteria [employer] SYSTEMS ENGINEER - [employer] Work Phone: [facility] 11-27-2023 09:23-0400 Body temperature 97 [degF] [facility] 11-27-2023 09:23-0400 Diastolic blood pressure 59 mm[Hg] [facility] 11-27-2023 09:23-0400 Heart rate 66 /min [facility] 11-27-2023 09:23-0400 Respiratory rate 12 /min [facility] 11-27-2023 09:23-0400 SaO2% (BldA) [Mass fraction] 98 % [facility] 11-27-2023 09:23-0400 Systolic blood pressure 133 mm[Hg] [facility] [facility] 11-27-2023 04:20-0400 Body height 170.18 cm [facility] 11-27-2023 04:20-0400 Body mass index (BMI) [Ratio] 31.1 kg/m2 [facility] 11-27-2023 04:20-0400 Body weight 90.3 kg [facility] 03-12-2023 08:32-0400 Body height 170.2 cm Ralph Roth MD Work Phone: [facility] 03-12-2023 08:32-0400 Body mass index (BMI) [Ratio] 28.66 kg/m2 Ralph Roth MD Work Phone: [facility] 03-12-2023 08:32-0400 Body weight 83.01 kg Ralph Roth MD Work Phone: [facility] 03-12-2023 08:32-0400 Diastolic blood pressure 76 mm[Hg] Ralph Roth MD Work Phone: [facility] 03-12-2023 08:32-0400 Heart rate 77 /min Ralph Roth MD Work Phone: [facility] 03-12-2023 08:32-0400 Respiratory rate 16 /min Ralph Roth MD Work Phone: [facility] [email or web address] 03-12-2023 08:32-0400 SaO2% (BldA) [Mass fraction] 96 % Ralph Roth MD Work Phone: [facility] [email or web address] 03-12-2023 08:32-0400 Systolic blood pressure 120 mm[Hg] Ralph Roth MD Work Phone: [facility] [email or web address] 09-10-2022 09:10-0500 Body height 170.2 cm Petra Dexter [employer]ITY SYSTEMS ENGINEER - MARINE OILER Work Phone: [email or web address] 09-10-2022 09:10-0500 Body mass index (BMI) [Ratio] 28.85 kg/m2 Petra Dexter [employer] SEC[employer]ITY SYSTEMS ENGINEER - MARINE OILER Work Phone: [email or web address] 09-10-2022 09:10-0500 Body weight 83.55 kg Petra Dexter [employer] SEC[employer]ITY SYSTEMS ENGINEER - MARINE OILER Work Phone: [email or web address] 09-10-2022 09:10-0500 Diastolic blood pressure 52 mm[Hg] Petra Dexter [employer]BER SEC[employer]ITY SYSTEMS ENGINEER - MARINE OILER Work Phone: [email or web address] 09-10-2022 09:10-0500 Heart rate 91 /min Petra Dexter [employer] SEC[employer]ITY SYSTEMS ENGINEER - MARINE OILER Work Phone: [email or web address] 09-10-2022 09:10-0500 Respiratory rate 16 /min Petra Dexter [employer] SEC[employer]ITY SYSTEMS ENGINEER - MARINE OILER Work Phone: [email or web address] 09-10-2022 09:10-0500 SaO2% (BldA) [Mass fraction] 96 % Petra Dexter [employer] SEC[employer]ITY SYSTEMS ENGINEER - MARINE OILER Work Phone: [email or web address] 09-10-2022 09:10-0500 Systolic blood pressure 102 mm[Hg] Petra Dexter [employer] SEC[employer]ITY SYSTEMS ENGINEER - MARINE OILER Work Phone: [facility] [email or web address] 03-27-2022 13:36-0400 Body height 170.[address] Rigoberto Durand Work Phone: [facility] Work Phone: 03-27-2022 13:36-0400 Body mass index (BMI) [Ratio] 26.6 kg/m2 Dr. Rigoberto Durand Work Phone: [facility] Work Phone: 03-27-2022 13:36-0400 Body weight 77.[address] Rigoberto Durand Work Phone: [facility] Work Phone: 03-05-2022 11:55-0400 Diastolic blood pressure 62 mm[Hg] Dr. Rigoberto Durand Work Phone: [facility] Work Phone: 03-05-2022 11:55-0400 Heart rate 85 /min Dr. Rigoberto Durand Work Phone: [facility] Work Phone: 03-05-2022 11:55-0400 Respiratory rate 14 /min Dr. Rigoberto Durand Work Phone: [facility] Work Phone: 03-05-2022 11:55-0400 SaO2% (BldA) [Mass fraction] 98 % Dr. Rigoberto Durand Work Phone: [facility] Work Phone: 03-05-2022 11:55-0400 Systolic blood pressure 117 mm[Hg] Dr. Rigoberto Durand Work Phone: [facility] Work Phone: 08-22-2021 13:00-0500 Body temperature 97.8 [degF] Dr. Rigoberto Durand Work Phone: [facility] Work Phone: 08-22-2021 13:00-0500 Diastolic blood pressure 62 mm[Hg] Dr. Rigoberto Durand Work Phone: [facility] Work Phone: 08-22-2021 13:00-0500 Heart rate 76 /min Dr. Rigoberto Durand Work Phone: [facility] Work Phone: 08-22-2021 13:00-0500 Respiratory rate 20 /min Dr. Rigoberto Durand Work Phone: [facility] Work Phone: 08-22-2021 13:00-0500 SaO2% (BldA) [Mass fraction] 97 % Dr. Rigoberto Durand Work Phone: [facility] Work Phone: 08-22-2021 13:00-0500 Systolic blood pressure 120 mm[Hg] Dr. Rigoberto Durand Work Phone: [facility] Work Phone: 08-22-2021 09:02-0500 Body height 170.[address] Rigoberto Durand Work Phone: [facility] Work Phone: 08-22-2021 09:02-0500 Body weight 70.[address] Rigoberto Durand Work Phone: [facility] Work Phone: 08-21-2021 03:00-0500 Inhaled oxygen concentration 100 % Dr. Rigoberto Durand Work Phone: [facility] Work Phone: 08-20-2021 20:36-0500 Body mass index (BMI) [Ratio] 24.4 kg/m2 Dr. Rigoberto Durand Work Phone: [facility] Work Phone: 09-26-2020 07:04-0500 Body Temperature 98.01 [degF] Mauro CAM Work Phone: 09-26-2020 07:04-0500 BP Diastolic 55 mm[Hg] Mauro TAYLORA Work Phone: 09-26-2020 07:04-0500 BP Systolic 116 mm[Hg] Mauro TAYLORA Work Phone: 09-26-2020 07:04-0500 Pulse (Heart Rate) 99 /min Mauro CAM Work Phone: 09-26-2020 07:04-0500 Pulse Oximetry 99 % Mauro CAM Work Phone: 09-26-2020 07:04-0500 Respiratory Rate 18 /min Mauro CAM Work Phone: 09-26-2020 03:56-0500 BMI (Body Mass Index) 27.06 kg/m2 Mauro CAM Work Phone: 09-26-2020 03:56-0500 Body weight 78.38 kg Mauro CAM Work Phone: 09-25-2020 15:26-0500 Height 170.2 cm Mauro CAM Work Phone: 09-15-2020 11:45-0500 Body Temperature 96.21 [degF] Ruddy CAM Work Phone: 09-15-2020 11:45-0500 BP Diastolic 80 mm[Hg] Ruddy CAM Work Phone: 09-15-2020 11:45-0500 BP Systolic 113 mm[Hg] Ruddy CAM Work Phone: 09-15-2020 11:45-0500 Pulse (Heart Rate) 94 /min Ruddy CAM Work Phone: 09-15-2020 11:45-0500 Pulse Oximetry 99 % Ruddy CAM Work Phone: 09-15-2020 11:45-0500 Respiratory Rate 16 /min Ruddy CAM Work Phone: 09-15-2020 06:00-0500 BMI (Body Mass Index) 29.35 kg/m2 Ruddy CAM Work Phone: 09-15-2020 06:00-0500 Body weight 85 kg Ruddy CAM Work Phone: 09-15-2020 06:00-0500 Height 170.2 cm Ruddy CAM Work Phone: 09-05-2020 22:30-0500 BP Diastolic 79 mm[Hg] RON CAM Work Phone: 09-05-2020 22:30-0500 BP Systolic 119 mm[Hg] RON CAM Work Phone: 09-05-2020 22:30-0500 Pulse (Heart Rate) 105 /min RON CAM Work Phone: 09-05-2020 22:30-0500 Pulse Oximetry 100 % RON CAM Work Phone: 09-05-2020 22:30-0500 Respiratory Rate 18 /min RON CAM Work Phone: 09-05-2020 19:05-0500 BMI (Body Mass Index) 29.29 kg/m2 RON CAM Work Phone: 09-05-2020 19:05-0500 Body Temperature 97.3 [degF] RON CAM Work Phone: 09-05-2020 19:05-0500 Body weight 84.82 kg RON CAM Work Phone: 08-29-2020 14:51-0500 BMI (Body Mass Index) 29.49 kg/m2 Ralphwillam NassarEbro [facility], [place] 08-29-2020 14:51-0500 Body Temperature 97.2 [degF] [facility] [place] 08-29-2020 14:51-0500 Body weight 85.41 kg [facility] [place] 08-29-2020 14:51-0500 BP Diastolic 72 mm[Hg] Ralph [facility] , [place] 08-29-2020 14:51-0500 BP Systolic 115 mm[Hg[facility] [place] 08-29-2020 14:51-0500 Height 170.2 cm Ralph [facility] , [place] 08-29-2020 14:51-0500 Pulse (Heart Rate) 98 /min Ralph Roth [facility], [place] 08-29-2020 14:51-0500 Respiratory Rate 18 /min [facility] [place] 08-22-2020 12:24-0500 BP Diastolic 78 mm[Hg] Ralph Roth [facility] , [place] 08-22-2020 12:24-0500 BP Systolic 122 mm[Hg] Ralph Roth [facility] , [place] 08-22-2020 12:24-0500 Pulse (Heart Rate) 86 /min Ralph Roth [facility], [place] 08-22-2020 10:53-0500 BMI (Body Mass Index) 28.98 kg/m2 Ralph Cabrera [facility], [place] 08-22-2020 10:53-0500 Body Temperature 97.11 [degF] Ralph Roth [facility], [place] 08-22-2020 10:53-0500 Body weight 83.92 kg Ralph Roth [facility] , [place] 08-22-2020 10:53-0500 Respiratory Rate 18 /min Ralph Roth [place], [place] Encounters Encounter Date Encounter Type Care Provider Facility Start: 04-01-2025 End: 04-01-2025 Emergency department patient visit Dr. Rigoberto Durand MD Work Phone: -Emergency Department Work Phone: Start: 03-07-2025 End: 03-07-2025 Refill Petra Renteria APRN [email or web address] Work Phone: [facility] Comment on above: Chronic HFrEF (heart failure with reduced ejection fraction) (HCC) Start: 03-03-2025 End: 03-03-2025 Office outpatient visit 25 minutes Petra Renteria APRN - Niko Niko Work Phone: [facility] Comment on above: Non-ischemic cardiom yopathy (CMS/HCC) (HCC) (Primary Dx); Acute HFrEF (heart failure with reduced ejection fraction) (HCC); ICD (implantable cardioverter-defibrillator), biventricular, in situ Start: 03-03-2025 End: 03-03-2025 ambulatory PETRA RENTERIA [facility] Start: 03-02-2025 End: 03-02-2025 ambulatory Jany Bonilla RN [facility] Start: 02-17-2025 End: 02-17-2025 ambulatory [facility] Start: 02-10-2025 End: 02-15-2025 ambulatory GIBSON ROTH [facility] Start: 02-10-2025 End: 02-15-2025 Evaluation and management of inpatient Latricia Landa DO Work Phone: [facility] 4S Comment on above: Cellulitis of lower extremity, unspecified laterality (Primary Dx); Acute HFrEF (heart failure with reduced ejection fraction) (HCC) Start: 02-04-2025 End: 02-04-2025 Telephone encounter Cindy Peterson CNP Work Phone: [facility] Comment on above: Other (HFdEF) Start: 01-28-2025 End: 01-28-2025 Telephone encounter Ralph Roth MD Work Phone: [facility] Start: 01-28-2025 End: 02-01-2025 Evaluation and management of inpatient Latricia Landa DO Work Phone: [facility] Cardiac Progressive Care Unit PCU 5W Comment on above: Acute systolic conge stive heart failure (HCC) (Primary Dx); Bilateral leg edema; Chronic kidney disease, unspecified CKD stage; AICD (automatic cardioverter/defibrillator) present Start: 01-26-2025 End: 01-26-2025 ambulatory RALPH ROTH [facility] Start: 01-26-2025 End: 01-26-2025 Office outpatient visit 25 minutes Ralph Roth MD Work Phone: [facility] Comment on above: Primary hypertension (Primary Dx); Acute systolic heart failure (HCC); Acute on chronic clinical systolic heart failure (HCC) Start: 01-12-2025 End: 01-12-2025 ambulatory GIBSON [facility] Start: 12-12-2024 End: 12-12-2024 Emergency department patient visit Dr. Rigoberto Durand MD Work Phone: -Emergency Department Work Phone: Start: 12-08-2024 End: 12-08-2024 Refill Petra Renteria [employer]ITY SYSTEMS ENGINEER - [employer]INE O[employer]ER Work Phone: [facility] Comment on above: Acute HFrEF (heart f ailure with reduced ejection fraction) (HCC) Start: 10-06-2024 End: 10-06-2024 [facility] Start: 09-27-2024 End: 09-27-[address] Rigoberto Durand MD Work Phone: [facility] Work Phone: Start: 09-27-2024 End: 09-27-[address] Rigoberto Durand MD -Laboratory, [facility] Start: 09-27-2024 End: 09-27-2024 ambulatory Rigoberto Durand Facility:[facility] Start: 09-22-2024 End: 09-22-2024 Office outpatient visit 15 minutes Ralph Roth MD Work Phone: [facility] Comment on above: Chronic HFrEF (heart failure with reduced ejection fraction) (HCC) (Primary Dx) Start: 09-22-2024 End: 09-22-2024 ambulatory RALPH ROTH [facility] Start: 07-28-2024 End: 07-28-2024 Telephone encounter Di Hernández RN [facility] Start: 07-20-2024 End: 07-20-2024 Refmonica Roth MD Work Phone: [facility] Start: 06-15-2024 End: 06-16-2024 Refill Radha Delgado [employer]ITY SYSTEMS ENGINEER - [employer]INE O[employer]ER Work Phone: [facility] Comment on above: Acute HFrEF (heart f ailure with reduced ejection fraction) ([facility]) Start: 05-26-2024 End: 05-26-2024 ambulatory GIBSONJACOB ROTH [facility] Start: 05-10-2024 Encounter for vanesa l adult medical examination without abnormal findings Rigoberto Durand [facility] Start: 04-16-2024 End: 04-16-2024 ambulatory [facility] Facility:[facility] Start: 03-19-2024 End: 04-21-2024 Telephone encounter Ralph Roth MD Work Phone: [facility] Comment on above: Med Management Start: 03-18-2024 End: 03-18-2024 Refill Petra Renteria [employer] SECURITY SYSTEMS ENGINEER - MARINE OILER Work Phone: [facility] Comment on above: Chronic HFrEF (heart failure with reduced ejection fraction) ([facility]) Start: 01-09-2024 End: 01-09-2024 Office outpatient visit 25 minutes Petra Renteria [employer] SEC[employer]ITY SYSTEMS ENGINEER - MARINE OILER Work Phone: [facility] Comment on above: Non-ischemic cardiom yopathy (CMS/HCC) ([facility]) (Primary Dx); Primary hypertension; Acute HFrEF (heart failure with reduced ejection fraction) ([facility]); ICD (implantable cardioverter-defibrillator), biventricular, in situ; Other iron deficiency anemia Start: 12-22-2023 Refill Ralph ravi MD Work Phone: [facility] Comment on above: Erectile dysfunction , unspecified erectile dysfunction type Start: 12-18-2023 Refill Lance martinez CY[employer] SECURITY SYSTEMS ENGINEER - MARINE OILER Work Phone: [facility] Comment on above: Acute HFrEF (heart f ailure with reduced ejection fraction) ([facility]) Start: 11-27-2023 End: 11-27-2023 Emergency department patient visit [facility]-Emergency Department Work Phone: Start: 08-29-2023 End: 08-29-2023 ambulatory [facility] Work Phone: Start: 08-29-2023 End: 08-29-2023 Patient encounter procedure [facility] Start: 06-11-2023 Refill Ralph ravi MD Work Phone: [facility] Comment on above: Acute HFrEF (heart f ailure with reduced ejection fraction) (HCC) Start: 06-02-2023 End: 06-02-2023 ambulatory [facility] Work Phone: Start: 06-02-2023 End: 06-02-2023 Patient encounter procedure [facility] Start: 05-12-2023 Refill Brinda Bourne APRN.MARINE [employer] Work Phone: [facility] Comment on above: Refill Request Start: 03-12-2023 End: 03-12-2023 Office outpatient visit 25 minutes Ralph Roth MD Work Phone: [facility] Comment on above: Hyperlipidemia, unsp ecified hyperlipidemia type Start: 03-08-2023 Refill Birnda Bourne CY[employer] SECURITY SYSTEMS ENGINEER.MARINE OILER Work Phone: [facility] Comment on above: Refill Request (Sucr alfate ) Start: 03-04-2023 End: 03-04-[address] [facility] Work Phone: Start: 03-04-2023 End: 03-04-2023 Patient encounter procedure [facility] Start: 09-10-2022 End: 09-10-2022 Office outpatient visit 25 minutes Petra Renteria [employer] SEC[employer]ITY SYSTEMS ENGINEER - [employer]INE OILER Work Phone: [facility] Comment on above: Acute HFrEF (heart f ailure with reduced ejection fraction) (CMS/HCC) (HCC) (Primary Dx); Presence of cardiac resynchronization therapy defibrillator (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); Non-ischemic cardiomyopathy (CMS/HCC) (HCC) Start: 08-26-2022 End: 08-26-[address] [facility] Work Phone: Start: 08-26-2022 End: 08-26-2022 Patient encounter procedure [facility] Start: 08-21-2022 Telephone encounter Ralph lloyd MD Work Phone: [facility] Comment on above: Med Management Erectile dysfunction , unspecified erectile dysfunction type Start: 07-11-2022 Telephone encounter Ralph lloyd MD Work Phone: [facility] Comment on above: Med Management Start: 05-16-2022 End: 05-16-[address] Rigoberto Durand Work Phone: [facility] Work Phone: Start: 05-16-2022 End: 05-16-[address] Rigoberto Durand Work Phone: [facility] Start: 03-27-2022 End: 03-27-[address] Rigoberto Durand Work Phone: [facility] Start: 03-20-2022 End: 03-20-2022 Subsequent hospital visit by physician Ruddy Gates MD Work Phone: [facility] Comment on above: Chronic systolic (co ngestive) heart failure (HCC); Chronic HFrEF (heart failure with reduced ejection fraction) (HCC) Start: 03-05-2022 End: 03-05-[address] Rigoberto Durand Work Phone: [facility]-MRI - [facility] Start: 02-18-2022 End: 02-18-[address] Rigoberto Durand Work Phone: [facility] Start: 01-30-2022 End: 01-30-[address] Rigoberto Durand Work Phone: [facility]-Radiology, [facility] Start: 11-19-2021 End: 11-19-[address] Rigoberto Durand Work Phone: [facility] Start: 10-25-2021 End: 10-25-[address] Rigoberto Durand Work Phone: [facility] Start: 09-21-2021 End: 09-21-[address] Rigoberto Durand Work Phone: [facility] Start: 08-31-2021 End: 08-31-[address] Rigoberto Durand Work Phone: [facility] Start: 08-22-2021 Non-patient / Non-visit Dr. Dasia Durand Work Phone: [facility] Start: 08-22-2021 Non-patient / Non-visit Dr. Dasia Durand Work Phone: [facility] Start: 08-22-2021 Non-patient / Non-visit Dr. Dasia Durand Work Phone: [facility] Start: 08-21-2021 Non-patient / Non-visit Dr. Dasia Durand Work Phone: [facility] Start: 08-21-2021 Non-patient / Non-visit Dr. Dasia Durand Work Phone: [facility] Start: 08-21-2021 Non-patient / Non-[facility] Start: 08-20-2021 Non-patient / Non-visit Dr. Dasia Durand Work Phone: [facility] Start: 08-20-2021 End: 08-22-2021 Evaluation and management of inpatient Dr. Rigoberto Durand Work Phone: [facility]-Intensive Care Unit Start: 08-09-[address] Rigoberto Durand Work Phone: [facility] Start: 07-23-2021 End: 07-23-[address] Rigoberto Durand Work Phone: [facility] Start: 07-09-[address] Rigoberto Durand Work Phone: [facility] Start: 09-21-2020 End: 09-26-2020 Evaluation and management of inpatient Mauro Padgett Work Phone: [facility] Start: 09-21-2020 End: 09-21-2020 Subsequent hospital visit by physician Cindy Recinos Work Phone: [address] [facility] Comment on above: Acute on chronic HFr EF (heart failure with reduced ejection fraction) (HCC) Start: 09-11-2020 End: 09-15-2020 Evaluation and management of inpatient Ruddy Gates Work Phone: [facility] 3W TELEMETRY Comment on above: Acute on chronic HFr EF (heart failure with reduced ejection fraction) (HCC) (Primary Dx) Start: 09-05-2020 End: 09-05-2020 Emergency department patient visit Shamika Glasgow Work Phone: [facility] Comment on above: Abdominal pain, righ t upper quadrant (Primary Dx) Start: 08-29-2020 End: 08-29-2020 Subsequent hospital visit by physician Ralph Roth Work Phone: [facility] Comment on above: Iron deficiency anem ia, unspecified iron deficiency anemia type (Primary Dx); Iron malabsorption Start: 08-23-2020 End: 08-23-2020 Subsequent hospital visit by physician Ralph Roth Work Phone: [facility] Comment on above: Chronic systolic (co ngestive) heart failure (HCC); Other pulmonary embolism without acute cor pulmonale (HCC); Chronic systolic heart failure (HCC); Pulmonary embolism, unspecified chronicity, unspecified pulmonary embolism type, unspecified whether acute cor pulmonale present (HCC); Deep venous thrombosis (DVT) of right peroneal vein, unspecified chronicity (HCC); Essential hypertension; Hyperlipidemia, unspecified hyperlipidemia type; Non-ischemic cardiomyopathy (HCC) Start: 08-22-2020 End: 08-22-2020 Subsequent hospital visit by physician Ralph Roth Work Phone: [facility] Comment on above: Iron deficiency anem ia, unspecified iron deficiency anemia type (Primary Dx); Iron malabsorption Start: 06-27-2020 End: 06-27-2020 Subsequent hospital visit by physician Ralph Roth Work Phone: [facility] [address] [facility] Comment on above: Chronic systolic hea rt failure (HCC) Procedures Date Procedure Procedure Detail Performing Clinician Start: 04-01-[address] Rigoberto Durand MD Work Phone: Start: 04-01-2025 CT cervical spine wi thout contrast Dr. Rigoberto Durand MD Work Phone: Start: 04-01-2025 CT of head without contrast Dr. Rigoberto Durand MD Work Phone: Start: 04-01-2025 CT of thorax, abdome n and pelvis with contrast Dr. Rigoberto Durand MD Work Phone: Start: 02-15-2025 Glucose quantitative blood xcpt reagent strip Lisa Muniz DO Work Phone: Start: 02-15-2025 End: 02-15-2025 Glucose quantitative blood xcpt reagent strip Lisa Muniz DO Work Phone: Start: 02-15-2025 Basic metabolic pane l calcium total Melvin Mei MD Work Phone: Start: 02-14-2025 Glucose quantitative blood xcpt reagent strip Melvin Mei MD Work Phone: Start: 02-14-2025 Glucose quantitative blood xcpt reagent strip Melvin Mei MD Work Phone: Start: 02-14-2025 Glucose quantitative blood xcpt reagent strip Melvin Mei MD Work Phone: Start: 02-14-2025 Glucose quantitative blood xcpt reagent strip Melvin Mei MD Work Phone: Start: 02-14-2025 Basic metabolic pane l calcium total Melvin Mei MD Work Phone: Start: 02-13-2025 Glucose quantitative blood xcpt reagent strip Melvin Mei MD Work Phone: Start: 02-13-2025 Glucose quantitative blood xcpt reagent strip Melvin Mei MD Work Phone: Start: 02-13-2025 Glucose quantitative blood xcpt reagent strip Melvin Mei MD Work Phone: Start: 02-13-2025 Glucose quantitative blood xcpt reagent strip Melvin Mei MD Work Phone: Start: 02-13-2025 Basic metabolic pane l calcium total Melvin Mei MD Work Phone: Start: 02-12-2025 Glucose quantitative blood xcpt reagent strip Melvin Mei MD Work Phone: Start: 02-12-2025 Glucose quantitative blood xcpt reagent strip Melvin Mei MD Work Phone: Start: 02-12-2025 Glucose quantitative blood xcpt reagent strip Melvin Mei MD Work Phone: Start: 02-12-2025 End: 02-12-2025 Glucose quantitative blood xcpt reagent strip Melvin Mei MD Work Phone: Start: 02-12-2025 Basic metabolic pane l calcium total Melvin Mei MD Work Phone: Start: 02-11-2025 Glucose quantitative blood xcpt reagent strip Melvin Mei MD Work Phone: Start: 02-11-2025 Glucose quantitative blood xcpt reagent strip Melvin Mei MD Work Phone: Start: 02-11-2025 Glucose quantitative blood xcpt reagent strip Melvin Mei MD Work Phone: Start: 02-11-2025 Glucose quantitative blood xcpt reagent strip Melvin Mei MD Work Phone: Start: 02-11-2025 Glucose quantitative blood xcpt reagent strip Melvin Mei MD Work Phone: Start: 02-11-2025 Dup-scan xtr veins c omplete bilateral study Mannie Samuel MD Work Phone: Start: 02-10-2025 Glucose quantitative blood xcpt reagent strip Melvin Mei MD Work Phone: Start: 02-10-2025 Glucose quantitative blood xcpt reagent strip Latricia Landa DO Work Phone: Start: 02-10-2025 End: 02-10-2025 Comprehensive metabolic panel Latricia Landa DO Work Phone: Start: 02-01-2025 Comprehensive metabo lic panel Dena Curtis [employer] SYSTEMS ENGINEER - [employer] Work Phone: Start: 02-01-2025 Glucose quantitative blood xcpt reagent strip Dee Jones MD Work Phone: Start: 02-01-2025 Glucose quantitative blood xcpt reagent strip Dee Jones MD Work Phone: Start: 02-01-2025 Blood count complete automated Reeya Laura DO Work Phone: Start: 01-31-2025 Glucose quantitative blood xcpt reagent strip Marco Antonio Hall DO Work Phone: Start: 01-31-2025 End: 01-31-2025 Comprehensive metabolic panel Dena Curtis [employer] SYSTEMS ENGINEER - [employer] Work Phone: Start: 01-31-2025 End: 01-31-2025 Comprehensive metabolic panel Reeya Laura DO Work Phone: Start: 01-31-2025 TTE w or wo fol wcon,Doppler Jabari Jacqui PA-C Work Phone: Start: 01-31-2025 Glucose quantitative blood xcpt reagent strip Marco Antonio Hall DO Work Phone: Start: 01-30-2025 Glucose quantitative blood xcpt reagent strip Marco Antonio Hall DO Work Phone: Start: 01-30-2025 Glucose quantitative blood xcpt reagent strip Marco Antonio Hall DO Work Phone: Start: 01-30-2025 Comprehensive metabo lic panel Reeya Laura DO Work Phone: Start: 01-30-2025 End: 01-30-2025 Comprehensive metabolic panel Reeya Laura DO Work Phone: Start: 01-30-2025 Glucose quantitative blood xcpt reagent strip Marco Antonio Hall DO Work Phone: Start: 01-29-2025 Glucose quantitative blood xcpt reagent strip Marco Antonio Hall DO Work Phone: Start: 01-29-2025 End: 01-29-2025 Basic metabolic panel calcium total Reeya Laura DO Work Phone: Start: 01-29-2025 Glucose quantitative blood xcpt reagent strip Marco Antonio Hall DO Work Phone: Start: 01-29-2025 End: 01-29-2025 Calcium ionized Reeya Laura DO Work Phone: Start: 01-29-2025 Comprehensive metabo lic panel Moises Adan MD Work Phone: Start: 01-28-2025 Glucose quantitative blood xcpt reagent strip Rogelio Adams MD Work Phone: Start: 01-28-2025 Glucose quantitative blood xcpt reagent strip Rogelio Adams MD Work Phone: Start: 01-28-2025 Glucose quantitative blood xcpt reagent strip Latricia Landa DO Work Phone: Start: 01-28-2025 Glucose quantitative blood xcpt reagent strip Latricia Landa DO Work Phone: Start: 01-28-2025 Glucose quantitative blood xcpt reagent strip Latricia Landa DO Work Phone: Start: 01-28-2025 Basic metabolic pane l calcium total Latricia Landa DO Work Phone: Start: 01-28-2025 Radiologic exam ches t single view Latricia Landa DO Work Phone: Start: 01-28-2025 Ecg routine ecg w/le ast 12 lds trcg only w/o i&r Latricia Landa DO Work Phone: Start: 01-26-2025 Ecg routine ecg w/le ast 12 lds w/i&r Ralph Roth MD Work Phone: Start: 12-12-2024 Urnls dip stick/tabl et reagent auto microscopy Dr. Rigoberto Durand MD Work Phone: Start: 12-12-2024 CT of abdomen and pe lvis without contrast Dr. Rigoberto Durand MD Work Phone: Start: 09-27-2024 Prostate specific an tigen measurement Dr. Rigoberto Durand MD Work Phone: Comment on above: This test was perfor med using the [employer] tPSA method. Measured values of a patient sample can vary depending on the testing procedure used. PSA values determined on patient samples by different testing procedures cannot be used interchangeably. If there is a change in PSA assays while monitoring therapy, sequential testing should be performed to confirm baseline values. Start: 11-27-2023 SARS-CoV-2, Influenz a & RSV (PCR) Start: 11-27-2023 CT of chest, abdomen and pelvis without contrast Start: 11-27-2023 Plain chest X-ray Start: 08-29-2023 End: 08-29-2023 Radiologic examination of knee Start: 03-20-2022 Echo tthrc r-t 2d w/ wom-mode compl spec&colr d Ruddy Gates MD Work Phone: Start: 03-05-2022 MRI of lumbar spine Dr. Rigoberto Durand Work Phone: Start: 01-30-2022 X-ray of lumbar spin e, two or three views Dr. Rigoberto Durand Work Phone: Start: 08-22-[address] Rigoberto rodriguez Work Phone: Start: 08-21-2021 SARS-CoV-2 Antigen (Rapid) Dr. Rigoberto Durand Work Phone: Start: 08-20-2021 Plain chest X-ray Dr. Fabiana Durand Work Phone: Start: 08-20-2021 Measurement of occul t blood in stool specimen using immunoassay Dr. Rigoberto Durand Work Phone: Start: 05-14-2021 Lipid 1996 panel - S randa or Plasma Ralph Roth MD Work Phone: Start: 09-26-2020 Assay of magnesium Tram nely J Dexter Work Phone: Start: 09-26-2020 Basic metabolic pane l calcium total Petra J Dexter Work Phone: Start: 09-26-2020 Blood count complete auto&auto difrntl wbc aDt [employer] Work Phone: Start: 09-26-2020 RBC morphology findi ng Nom (Bld) Petra J Dexter Work Phone: Start: 09-25-2020 Assay of magnesium Tram nely J Dexter Work Phone: Start: 09-25-2020 Basic metabolic pane l calcium total Petra J Dexter Work Phone: Start: 09-25-2020 Blood count complete auto&auto difrntl wbc Dat [employer] Work Phone: Start: 09-25-2020 RBC morphology findi ng Nom (Bld) Petra J Dexter Work Phone: Start: 09-24-2020 PULSE OXIMETRY, NOCT URNAL SATURATION STUDY Aftab Anna Work Phone: Start: 09-24-2020 Assay of magnesium Tram nely J Dexter Work Phone: Start: 09-24-2020 Basic metabolic pane l calcium total Petra J Dexter Work Phone: Start: 09-24-2020 Blood count complete auto&auto difrntl wbc [employer] Work Phone: Start: 09-24-2020 Natriuretic peptide Ros vasiliy Renteria Work Phone: Start: 09-24-2020 RBC morphology findi ng Nom (Bld) Petra Renteria Work Phone: Start: 09-23-2020 Assay of magnesium Tram nely Shamika Renteria Work Phone: Start: 09-23-2020 Basic metabolic pane l calcium total Petra Renteria Work Phone: Start: 09-23-2020 Blood count complete auto&auto difrntl wbc [employer] Work Phone: Start: 09-23-2020 Hepatic function panel Perta Renteria Work Phone: Start: 09-23-2020 RBC morphology findi ng Nom (Bld) Petra Renteria Work Phone: Start: 09-22-2020 ADD ON LAB TEST Mauro Padgett Work Phone: Start: 09-22-2020 Radiologic exam ches t single view Mauro Griggs Redtommy Work Phone: Start: 09-22-2020 Assay of magnesium Tram nely Shamika Renteria Work Phone: Start: 09-22-2020 Basic metabolic pane l calcium total Petra Renteria Work Phone: Start: 09-22-2020 Blood count complete automated Petra Shamika Renteria Work Phone: Start: 09-22-2020 Hepatic function panel Petra Shamika Durank Work Phone: Start: 09-21-2020 Ecg routine ecg w/le ast 12 lds w/i&r Mauro Griggs [employer] Work Phone: Start: 09-21-2020 Basic metabolic pane l calcium total Mauro aPdgett Work Phone: Start: 09-21-2020 Blood count complete auto&auto difrntl wbc Mauro Padgett Work Phone: Start: 09-21-2020 Natriuretic peptide Héctor sarwat Padgett Work Phone: Start: 09-21-2020 RBC morphology findi ng Nom (Bld) Mauro Padgett Work Phone: Start: 09-21-2020 Basic metabolic pane l calcium total Cindy Recinos Work Phone: Start: 09-21-2020 Natriuretic peptide Bentley Recinos Work Phone: Start: 09-15-2020 Assay of magnesium Sema an Cyrus Work Phone: Start: 09-15-2020 BASIC METABOLIC PANE L W/ REFLEX TO MG FOR LOW K Mackenzie Gregoryi Work Phone: Start: 09-14-2020 Assay of magnesium Sema an Verorossi Work Phone: Start: 09-14-2020 BASIC METABOLIC PANE L W/ REFLEX TO MG FOR LOW K Mackenzie Kobrossi Work Phone: Start: 09-14-2020 Blood count complete automated Mackenzie Verorossi Work Phone: Start: 09-14-2020 Us retroperitoneal r eal time w/image complete Cindy Recinos Work Phone: Start: 09-14-2020 Assay of magnesium Sema an Verorossi Work Phone: Start: 09-14-2020 BASIC METABOLIC PANE L W/ REFLEX TO MG FOR LOW K Mackenzie Kobrossi Work Phone: Start: 09-14-2020 Blood count complete automated Mackenzie Vreorossi Work Phone: Start: 09-13-2020 Assay of magnesium Violette v Gura Work Phone: Start: 09-13-2020 Basic metabolic pane l calcium total Natan Gura Work Phone: Start: 09-12-2020 Ecg routine ecg w/le ast 12 lds w/i&r Gibson Austin Flaquitocorby Work Phone: Start: 09-12-2020 ADD ON LAB TEST Natan rodriguez Work Phone: Start: 09-12-2020 Radiologic exam ches t 2 views Marcela O'Shell Work Phone: Start: 09-12-2020 Assay of lactate Mackenzie Bridges Work Phone: Start: 09-12-2020 Assay of lactate Mackenzie Bridges Work Phone: Start: 09-12-2020 Assay of lactate Mackenzie Bridges Work Phone: Start: 09-12-2020 Basic metabolic pane l calcium total Mackenzie Bridges Work Phone: Start: 09-12-2020 Blood count complete auto&auto difrntl wbc Mackenzie Bridges Work Phone: Start: 09-12-2020 Natriuretic peptide Anjelica aan Cyrus Work Phone: Start: 09-12-2020 RBC morphology findi ng Nom (Bld) Mackenzie Bridges Work Phone: Start: 09-11-2020 OPERATIVE REPORT 3m Sca nning Start: 09-11-2020 EP NURSE PROCEDURE REPORT 3m Scanning Start: 09-11-2020 ELECTROPHYSIOLOGY DEVICE Ruddy Gates Work Phone: Start: 09-05-2020 Ct abdomen & pelvis w/o contrast material Shamika Glasgow Work Phone: Start: 09-05-2020 Us abdominal real ti me w/image limited Shamika Glasgow Work Phone: Start: 09-05-2020 Assay of lipase Shamika Glasgow Work Phone: Start: 09-05-2020 Blood count complete automated Shamika Glasgow Work Phone: Start: 09-05-2020 Comprehensive metabo lic panel J Tammi Glasgow Work Phone: Start: 09-05-2020 Urnls dip stick/tabl et rgnt auto w/o microscopy J Tammi Glasgow Work Phone: Start: 09-05-2020 Ecg routine ecg w/le ast 12 lds w/i&r J Tammi Glasgow Work Phone: Start: 08-23-2020 Echo tthrc r-t 2d w/ wom-mode compl spec&colr d Ralph Roth Work Phone: Start: 06-27-2020 Basic metabolic pane l calcium total Ralph Roth Work Phone: Start: 06-27-2020 Blood count complete automated Ralph Roth Work Phone: Start: 03-16-2013 Colonoscopy Brinda Santoyo on [employer] ENGINEER.[employer] Work Phone: Plan of Treatment Date Care Activity Detail Author Start: 08-24-2030 DTaP/Tdap/Td vaccine (2 - Td or Tdap) DTaP/Tdap/Td vaccine (2 - Td or Tdap) [facility] Start: 08-24-2030 DTaP/Tdap/Td vaccine (2 - Td) DTaP/Tdap/Td vaccine (2 - Td) [place] Start: 08-24-2030 DTaP/Tdap/Td Vaccines (2 - Td or Tdap) DTaP/Tdap/Td Vaccines (2 - Td or Tdap) [facility] Start: 03-03-2026 Creatinine measurement Creatinine Level [facility] Start: 03-03-2026 Diabetes: Estimated Glomerular Filtration Rate for Kidney Health Diabetes: Estimated Glomerular Filtration Rate for Kidney Health [facility] Start: 03-03-2026 Potassium measurement Potassium Level [facility] Start: 02-15-2026 Creatinine measurement Creatinine Level [facility] Start: 02-15-2026 Diabetes: Estimated Glomerular Filtration Rate for Kidney Health Diabetes: Estimated Glomerular Filtration Rate for Kidney Health [facility] Start: 02-15-2026 Potassium measurement Potassium Level [facility] Start: 02-01-2026 Creatinine measurement Creatinine Level [facility] Start: 02-01-2026 Diabetes: Estimated Glomerular Filtration Rate for Kidney Health Diabetes: Estimated Glomerular Filtration Rate for Kidney Health [facility] Start: 02-01-2026 Potassium measurement Potassium Level [facility] Start: 01-31-2026 Echocardiography Echocardiogram [facility] Start: 2025 End: 2025 Patient encounter procedure 2025 3:00 PM EST Office Visit [facility] [address] [facility] [address] [place] [phone] Petra Renteria, [employer] SYSTEMS ENGINEER - [employer]INE [employer]ER [address] [facility], [address] [place] [address] [facility] Start: 05-04-2025 End: 05-04-2025 Professional / ancillary services management 05/04/2025 2:30 PM EDT Ancillary Procedure [facility] [address] [facility] [address] [place] [phone] [facility] Start: 04-01-2025 [facility] Start: 03-21-2025 Influenza vaccination [facility] Start: 03-10-2025 End: 03-03-2026 CBC panel - Blood by Automated count CBC Lab Routine Non-ischemic cardiomyopathy (CMS/HCC) (HCC) Expected: 03/10/2025 (Approximate), Expires: 03/03/2026 [facility] Comment on above: Expected: 03/10/2025 (Approximate), Expi res: 03/03/2026 Start: 03-04-2025 End: 03-04-2025 Patient encounter procedure 03/04/2025 8:00 AM EDT Office Visit [facility] [address] [facility] [address] [place] [phone] Petra Renteria, [employer] SYSTEMS ENGINEER - [employer]INE [employer]ER [address], [address] [place] [address] [facility] Start: 03-03-2025 End: 03-03-2026 Basic metabolic 1998 panel - Serum or Plasma Basic metabolic panel Lab Routine Non-ischemic cardiomyopathy (CMS/HCC) (HCC) Expected: 03/03/2025 (Approximate), Expires: 03/03/2026 [facility] Work Phone: Comment on above: Expected: 03/03/2025 (Approximate), Expi res: 03/03/2026 Start: 02-17-2025 End: 02-17-2025 Patient encounter procedure 02/17/2025 9:00 AM EDT Office Visit [facility] [address] [phone] Petra Renteria, [employer] SYSTEMS ENGINEER - [employer]ER [address] [facility], [address] [phone] [facility] Start: 02-15-2025 End: 02-15-2025 Patient encounter procedure 02/15/2025 2:30 PM EDT Office Visit [facility] [address] [phone] Petra Renteria, [employer] SYSTEMS ENGINEER - [employer]ER [address] [facility], [address] [place] [phone] [facility] Start: 01-26-2025 End: 01-26-2026 CBC panel - Blood by Automated count CBC Lab Routine Primary hypertension Acute systolic heart failure (HCC) Expected: 01/26/2025 (Approximate), Expires: 01/26/2026 [facility] Comment on above: Expected: 01/26/2025 (Approximate), Expi res: 01/26/2026 Start: 01-26-2025 End: 01-26-2026 Comprehensive metabolic 1998 panel - Serum or Plasma Comprehensive metabolic panel Lab Routine Primary hypertension Acute systolic heart failure (HCC) Expected: 01/26/2025 (Approximate), Expires: 01/26/2026 [facility] Work Phone: Comment on above: Expected: 01/26/2025 (Approximate), Expi res: 01/26/2026 Start: 01-12-2025 End: 01-12-2025 Professional / ancillary services management 01/12/2025 3:00 PM EDT Ancillary Procedure [facility] [address] [facility] [place] [address] [facility] Start: 01-08-2025 Creatinine measurement Creatinine Level [facility] Start: 01-08-2025 Diabetes: Estimated Glomerular Filtration Rate for Kidney Health Diabetes: Estimated Glomerular Filtration Rate for Kidney Health [facility] Start: 01-08-2025 Potassium measurement Potassium Level [facility] Start: 12-12-2024 [facility] Start: 12-12-2024 [facility] Start: 10-06-2024 End: 10-06-2024 Professional / ancillary services management 10/06/2024 7:30 AM EDT Ancillary Procedure [facility] [address] [place] [address] [facility] Start: 09-22-2024 End: 09-22-2024 Patient encounter procedure 09/22/2024 3:00 PM EST Office Visit [facility] [address] [place] [address] Ralph Roth MD [address] [place] [id number] [facility] Start: 09-22-2024 End: 09-22-2024 Professional / ancillary services management 09/22/2024 2:30 PM EST Ancillary Procedure [facility] [address] [place] [address] [facility] Start: 07-28-2024 End: 07-28-2024 Patient encounter procedure [facility] Start: 07-28-2024 End: 07-28-2024 Professional / ancillary services management [facility] Start: 07-21-2024 Medicare Advantage Annual Wellness Visit Medicare Advantage Annual Wellness Visit [facility] Start: 05-26-2024 End: 05-26-2024 Professional / ancillary services management [facility] Start: 03-21-2024 COVID-19 Vaccine () COVID-19 Vaccine () [facility] Start: 03-21-2024 COVID-19 Vaccine () COVID-19 Vaccine () [facility] Start: 03-21-2024 Influenza vaccination [facility] Start: 02-11-2024 End: 02-11-2024 Professional / ancillary services management [facility] Start: 01-09-2024 End: 01-08-2025 Basic metabolic 1998 panel - Serum or Plasma Basic metabolic panel Lab Routine Non-ischemic cardiomyopathy (CMS/HCC) (HCC) Primary hypertension Expected: 01/09/2024 (Approximate), Expires: 01/08/2025 [facility] Work Phone: Comment on above: Expected: 01/09/2024 (Approximate), Expi res: 01/08/2025 Start: 01-09-2024 End: 01-08-2025 CBC panel - Blood by Automated count CBC Lab Routine Non-ischemic cardiomyopathy (CMS/HCC) (HCC) Primary hypertension Expected: 01/09/2024 (Approximate), Expires: 01/08/2025 [facility] Comment on above: Expected: 01/09/2024 (Approximate), Expi res: 01/08/2025 Start: 01-09-2024 End: 01-09-2024 Patient encounter procedure 01/09/2024 10:30 AM EDT Office Visit [facility] [address] [facility] [address] [place] [phone] Petra Renteria, [employer] SYSTEMS ENGINEER - [employer]INE O[employer]ER [address] [facility], [address] [place] [address] [facility] Start: 11-27-2023 Bacteria identified in Blood by Culture Blood Culture [facility] Start: 11-27-2023 Hospital admission, emergency, from emergency room, medical nature [facility] Start: 11-27-2023 Admission procedure [facility] Start: 11-27-2023 US scan of gallbladder Gallbladder [facility] Start: 11-27-2023 End: 11-27-2023 Blood culture [facility] Start: 09-10-2023 Creatinine measurement Creatinine Level [facility] Start: 09-10-2023 Potassium measurement Potassium Level [facility] Start: 06-25-2023 End: 06-25-2023 Professional / ancillary services management 06/25/2023 7:00 AM EST Ancillary Procedure [facility] [address] [place] [phone] [facility] Start: 06-05-2023 Creatinine measurement Creatinine Level [facility] Start: 06-05-2023 Potassium measurement Potassium Level [facility] Start: 03-21-2023 COVID-19 Vaccine () COVID-19 Vaccine () [facility] Start: 03-21-2023 Influenza vaccination [facility] Start: 03-12-2023 End: 03-12-2023 Patient encounter procedure [facility] Start: 03-12-2023 End: 03-12-2023 Professional / ancillary services management 03/12/2023 8:30 AM EDT Ancillary Procedure [facility] [address] [place] [address] [facility] Start: 11-20-2022 End: 11-20-2022 Professional / ancillary services management 11/20/2022 Ancillary Procedure Cardiology [facility] Start: 09-10-2022 End: 09-10-2023 Basic metabolic 1998 panel - Serum or Plasma Basic metabolic panel Lab Routine Acute HFrEF (heart failure with reduced ejection fraction) (CMS/HCC) (HCC) Expected: 09/10/2022 (Approximate), Expires: 09/10/2023 [facility] [employer] Work Phone: Comment on above: Expected: 09/10/2022 (Approximate), Expi res: 09/10/2023 Start: 09-10-2022 End: 09-10-2023 CBC panel - Blood by Automated count CBC Lab Routine Acute HFrEF (heart failure with reduced ejection fraction) (CMS/HCC) (HCC) Expected: 09/10/2022 (Approximate), Expires: 09/10/2023 [facility] [email or web address] Comment on above: Expected: 09/10/2022 (Approximate), Expi res: 09/10/2023 Start: 09-10-2022 End: 09-10-2022 Patient encounter procedure 09/10/2022 Office Visit Cardiology Petra Renteria, [employer]S ENGINEER - [employer]ER [address] [facility], [address] [place], [place] [id number] [facility] Start: 07-21-2022 ADVANCE DIRECTIVE DISCUSSION ADVANCE DIRECTIVE DISCUSSION [facility] Start: 07-21-2022 DEPRESSION ASSESSMENT DEPRESSION ASSESSMENT [facility] Start: 05-14-2022 Lipid panel [facility] Start: 05-08-2022 End: 05-08-2022 Nursing evaluation of patient and report 05/08/2022 Nurse Only Cardiology Leslie Gloria RN [facility] Start: 03-21-2022 Influenza vaccination Flu vaccine (#1) [facility] Start: 09-26-2021 Creatinine measurement Creatinine monitoring [employer] Work Phone: Start: 09-26-2021 Potassium monitoring Potassium monitoring [employer] Work Phone: Start: 09-21-2021 Creatinine measurement Creatinine monitoring [employer] Work Phone: Start: 09-21-2021 Potassium monitoring Potassium monitoring [employer] Work Phone: Start: 09-15-2021 Creatinine measurement Creatinine monitoring [employer] Work Phone: Start: 09-15-2021 Potassium monitoring Potassium monitoring [employer] Work Phone: Start: 09-05-2021 Creatinine measurement Creatinine monitoring [employer] Work Phone: Start: 09-05-2021 Potassium monitoring [facility] Work Phone: Start: 08-01-2021 Creatinine measurement Creatinine monitoring [facility] [place] Start: 08-01-2021 Potassium monitoring Potassium monitoring [facility] [place] Start: 05-01-2021 Creatinine measurement Creatinine monitoring [facility] [place] Start: 05-01-2021 Potassium monitoring Potassium monitoring [facility] [place], [place] Start: 04-21-2021 Medicare Annual Wellness (AWV) Medicare Annual Wellness (AWV) [facility] [email or web address] Start: 12-21-2020 End: 12-21-2020 Office Visit 12/21/2020 Office Visit Cardiology Ruddy Gates MD [address] [place] [address] [phone] [facility] Start: 10-24-2020 End: 10-24-2020 Office Visit 10/24/2020 Office Visit Cardiology Ralph Roth MD [address] [place], [place] [id number] [facility] Start: 10-05-2020 End: 10-05-2020 Office Visit 10/05/2020 Office Visit Cardiology Petra Renteria [employer] SYSTEMS ENGINEER - [employer]ER [address] [facility], [address] [place] [address] [phone] [facility] Start: 10-02-2020 End: 10-02-2020 Nurse Only 10/02/2020 Nurse Only Cardiology Leslie Gloria, JAIMIE [facility] Start: 09-21-2020 End: 09-21-2020 Office Visit 09/21/2020 Office Visit Cardiology Shawna Sethi APRN - NP [address] [place] [address] [phone] [facility] Start: 09-21-2020 End: 09-15-2021 Basic metabolic 2000 panel Basic Metabolic Panel Lab Routine Acute on chronic HFrEF (heart failure with reduced ejection fraction) ([facility]) Expected: 09/21/2020, Expires: 09/15/2021 [facility] Work Phone: Comment on above: Expected: 09/21/2020, Expires: Start: 09-18-2020 End: 09-18-2020 Virtual Visit 09/18/2020 Virtual Visit Gastroenterology Sia Daniels [employer]S ENGINEER - [employer] [address] [place] [address] [phone] [facility] Start: 09-11-2020 End: 09-11-2020 Appointment 09/11/2020 Appointment Stress Lab Ruddy Gates MD [address] [place] [address] [phone] [facility] Start: 08-29-2020 End: 08-29-2020 Appointment 08/29/2020 Appointment Infusion Therapy [facility] Start: 08-24-2020 End: 08-24-2020 Office Visit 08/24/2020 Office Visit Cardiology Ruddy Gates MD [address] [place] [address] [phone] [facility] Start: 08-23-2020 End: 08-23-2020 Appointment 08/23/2020 Appointment Echocardiography Ralph Roth MD [address] [place] [address] [phone] [facility] Start: 08-01-2020 End: 08-01-2020 Office Visit 08/01/2020 Office Visit Cardiology Ralph Roth MD [address] [place] [address] [phone] [facility] Start: 03-21-2020 Influenza vaccination Flu vaccine (#1) [place] Start: 01-10-2019 Annual Wellness Visit (AWV) Annual Wellness Visit (AWV) [place] Start: 2014 RSV Immunization for Adults (1 - 1-dose 75+ series) RSV Immunization for Adults (1 - 1-dose 75+ series) [facility] Start: 03-16-2014 Colonoscopy COLONOSCOPY [facility] Start: 06-08-2013 Pneumococcal Vaccine: 65+ Years (2 - PCV) Pneumococcal Vaccine: 65+ Years (2 - PCV) [facility] Start: 2004 Pneumococcal Vaccine: 65+ (1 - PCV) Pneumococcal Vaccine: 65+ (1 - PCV) [facility] Start: 2004 PNEUMOCOCCAL: 65+ (1 - PCV) PNEUMOCOCCAL: 65+ (1 - PCV) [facility] Start: 1999 RSV Immunization aged 60 or older (1 - 1-dose 60+ series) RSV Immunization aged 60 or older (1 - 1-dose 60+ series) [facility] Start: 1999 RSV Vaccine (1 - 1-dose 60+ series) RSV Vaccine (1 - 1-dose 60+ series) [facility] Start: 1989 Shingles Vaccine (1 of 2) Shingles Vaccine (1 of 2) [place] Start: 1989 SHINGRIX VACCINE (1 of 2) SHINGRIX VACCINE (1 of 2) [facility] Start: 1984 DIABETES SCREEN DIABETES SCREEN [facility] Start: 1984 Diabetes Screening Diabetes Screening [facility] Start: 1958 DTaP/Tdap/Td vaccine (1 - Tdap) DTaP/Tdap/Td vaccine (1 - Tdap) [place] Start: 1958 Shingles vaccine (1 of 2) Shingles vaccine (1 of 2) [facility] Start: 1958 Urine microalbumin profile [facility] Start: 1958 Urine screening for protein Diabetes: Urine Protein Screening [facility] Start: 1958 Zoster Vaccines (1 of 2) Zoster Vaccines (1 of 2) [facility] Start: 1957 Diabetes: Urine Albumin-Creatinine Ratio for Kidney Health Diabetes: Urine Albumin-Creatinine Ratio for Kidney Health [facility] Start: 1955 COVID-19 Vaccine (1 of 2) COVID-19 Vaccine (1 of 2) [place] Start: 1951 Depression Screen Depression Screen [facility] Start: 1951 Depression Screening Depression Screening [facility] Start: 1949 Diabetic foot examination Diabetes: Foot Exam [facility] Start: 1949 Glaucoma screening Diabetes: Retinopathy Screening [facility] Start: 1949 Preventive dental service Diabetes: Dental Exam [facility] Start: 1939 COVID-19 VACCINE (#1) COVID-19 VACCINE (#1) [facility] Start: 1939 Annual Wellness Visit (AWV) Annual Wellness Visit (AWV) [facility] Start: 1939 Echocardiography Echocardiogram [facility] Start: 1939 Hemoglobin A1c measurement Diabetes: Hemoglobin A1C [facility] Start: 1939 Hepatitis B Vaccines (1 of 3 - 3-dose series) Hepatitis B Vaccines (1 of 3 - 3-dose series) [facility] Start: 1939 Medicare Annual Wellness (AWV) Medicare Annual Wellness (AWV) [facility] Start: 1939 Thyroid stimulating hormone measurement TSH Level [facility] Basic Metabolic Pane l w/ Reflex to MG [employer] Work Phone: Comment on above: Daily until discontinued starting 2020, 2 completed End: 09-30-2020 Brain Natriuretic Peptide Brain Natriuretic Peptide Lab Routine Every Third Day for 3 Occurrences starting 09/24/2020 until 09/30/2020, 1 completed [employer] Work Phone: Comment on above: Every Third Day for 3 Occurrences starti ng 09/24/2020 until 09/30/2020, 1 completed End: 09-11-2020 Catheterization and angiography procedure details panel Diagnostic Cardiac Bakelite Molder Procedure Cardiac Cath Routine One Time for 1 Occurrences starting 09/11/2020 until 09/11/2020 [employer] Work Phone: Comment on above: One Time for 1 Occurrences starting 08/22 until 09/11/2020 CBC Auto Differential CBC Auto D ifferential Lab Routine Daily until discontinued starting 09/23/2020, 4 completed [employer] Work Phone: Comment on above: Daily until discontinued starting 2020, 4 completed EKG 12 Lead EKG 12 Lead ECG Routine 09/05/2020 7:19 PM EST [employer] Work Phone: End: 09-26-2020 Home O2 eval (desaturation screen) Home O2 eval (desaturation screen) Respiratory Care Routine One Time for 1 Occurrences starting 09/26/2020 until 09/26/2020 [facility] Phone: Comment on above: One Time for 1 Occurrences starting 03/2021 until 09/26/2020 End: 09-14-2020 Magnesium [Mass/Vol] Magnesium Lab Add-On One Time for 1 Occurrences starting 09/14/2020 until 09/14/2020 [facility] Work Phone: Comment on above: One Time for 1 Occurrences starting 08/22 until 09/14/2020 Oxygen therapy [[facility] Data Set] Initiate Oxygen Therapy Protocol Respiratory Care Routine Daily until discontinued starting 09/11/2020 [facility] Work Phone: Comment on above: Daily until discontinued starting 2020 Patient Education ED Diverticulitis [facility] Work Phone: Patient referral [facility] Work Phone: Procalcitonin [Mass/volume] in Serum or Plasma [facility] Immunizations Immunization Date Immunization Notes Care Provider Fa [facility] 05-16-2022 influenza virus vaccine, unspecified formulation Ralph Roth MD Work Phone: [facility] [employer] 06-22-[address] Rigoberto Durand Work Phone: [facility] 11-10-2020 Covid (Moderna) Dr. Rigoberto shaver Work Phone: [facility] 10-13-2020 Covid (Moderna) Dr. Rigoberto shaver Work Phone: [facility] 08-24-2020 tetanus toxoid, redu fernando diphtheria toxoid, and acellular pertussis vaccine, adsorbed Ralph Roth [facility] Work Phone: Payers Date Payer Category Payer Self-pay [id number] 2024 Unknown [id number] 2024 Medicare HMO [employer] MEDICARE [id number] 2024 Private Health Insurance [id number] 2024 Self-pay [id number] 2021 Medicare supplementa l policy (as second payer) AARP [id number] 2021 Unknown AARP AARP xxxxxx [id number] 2021-Present [address] [place] [address] Supplement [id number] 2015 Private Health Insurance [facility] [id number] 2004 Medicare [id number] 2004 Medicare [id number] Unknown [id number] Unknown [id number] Unknown [id number] Unknown [id number] Social History Date Type Detail Facility Start: 08-01-2020 End: 02-11-2025 Tobacco smoking status NHIS Former smoker [place] End: 11-08-1999 History of tobacco use Current smoker [place] Start: 08-01-2020 End: 02-15-2025 Cigarettes smoked current (pack per day) - Reported [facility] Start: 08-01-2020 End: 02-11-2025 Tobacco use and exposure Never used [place] Start: 08-01-2020 End: 02-11-2025 Alcohol intake Current drinker of alcohol (finding) [place] Start: 1940 Sex Assigned At Not on file M [place] Start: 08-31-2022 End: 03-12-2023 Exposure to SARS-CoV-2 (event) Not sure [place] Start: 09-05-2020 Alcohol Comment occationally [employer] Work Phone: Start: 09-21-2020 Alcohol Comment occasional [employer] Work Phone: Start: 09-21-2021 End: 11-27-2023 Tobacco smoking status NHIS Unknown if ever smoked [facility] Start: 1940 Sex Assigned At Male [facility] End: 11-08-1999 History of tobacco use Cigarette Smoker [employer] Work Phone: Start: 12-19-2021 History SDOH Alcohol Comment occasional wine [employer] Work Phone: Start: 09-10-2022 End: 02-15-2025 Tobacco use panel [facility] Start: 06-08-2011 End: 04-01-2025 Tobacco smoking status NHIS Never smoked tobacco [facility] Work Phone: Start: 03-16-2013 Alcohol intake 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 No [facility] How often to you hav e a drink containing alcohol? Monthly or less [facility] How many standard drinks containing alcohol do you have on a typical day? 1 or 2 [facility] How often do you hav e 6 or more drinks on 1 occasion? Never [facility] History of tobacco use Passive smoker [facility] How many standard drinks containing alcohol do you have on a typical day? Patient does not drink [facility] The food that (I/we) bought just didn't last, and (I/we) didn't have money to get more. Never true [facility] Start: 02-11-2025 Tobacco Comment Patient states he quit smoking in 1999, no history of vaping or smokeless tobacco. Smoking cessation counseling no indicated. [facility] Medical Equipment Procedure Code Equipment Code Equipment Origin al Text Equipment Identifier Dates EGD, with monitored anesthesia care RESOLUTION 360 CLIP 235 CM FDA Start: 06-29-2021 EGD, with monitored anesthesia care RESOLUTION 360 CLIP 235 CM FDA Start: 06-29-2021 EGD, with monitored anesthesia care RESOLUTION 360 CLIP 235 CM FDA Start: 06-29-2021 EGD, with monitored anesthesia care RESOLUTION 360 CLIP 235 CM FDA Start: 06-29-2021 EGD, with monitored anesthesia care RESOLUTION 360 CLIP 235 CM FDA Start: 06-29-2021 EGD, with monitored anesthesia care RESOLUTION 360 CLIP 235 CM FDA Start: 06-29-2021 EGD, with monitored anesthesia care RESOLUTION 360 CLIP 235 CM FDA Start: 06-29-2021 EGD, with monitored anesthesia care RESOLUTION 360 CLIP 235 CM FDA Start: 06-29-2021 EGD, with monitored anesthesia care RESOLUTION 360 CLIP 235 CM FDA Start: 06-29-2021 EGD, with monitored anesthesia care RESOLUTION 360 CLIP 235 CM FDA Start: 06-29-2021 EGD, with monitored anesthesia care RESOLUTION 360 CLIP 235 CM FDA Start: 06-29-2021 EGD, with monitored anesthesia care RESOLUTION 360 CLIP 235 CM FDA Start: 06-29-2021 EGD, with monitored anesthesia care RESOLUTION 360 CLIP 235 CM FDA Start: 06-29-2021 EGD, with monitored anesthesia care RESOLUTION 360 CLIP 235 CM FDA Start: 06-29-2021 EGD, with monitored anesthesia care RESOLUTION 360 CLIP 235 CM FDA Start: 06-29-2021 EGD, with monitored anesthesia care RESOLUTION 360 CLIP 235 CM FDA Start: 06-29-2021 EGD, with monitored anesthesia care RESOLUTION 360 CLIP 235 CM FDA Start: 06-29-2021 EGD, with monitored anesthesia care RESOLUTION 360 CLIP 235 CM FDA Start: 06-29-2021 EGD, with monitored anesthesia care RESOLUTION 360 CLIP 235 CM FDA Start: 06-29-2021 EGD, with monitored anesthesia care RESOLUTION 360 CLIP 235 CM FDA Start: 06-29-2021 EGD, with monitored anesthesia care RESOLUTION 360 CLIP 235 CM FDA Start: 06-29-2021 EGD, with monitored anesthesia care RESOLUTION 360 CLIP 235 CM FDA Start: 06-29-2021 EGD, with monitored anesthesia care RESOLUTION 360 CLIP 235 CM FDA Start: 06-29-2021 EGD, with monitored anesthesia care RESOLUTION 360 CLIP 235 CM FDA Start: 06-29-2021 EGD, with monitored anesthesia care RESOLUTION 360 CLIP 235 CM FDA Start: 06-29-2021 EGD, with monitored anesthesia care RESOLUTION 360 CLIP 235 CM FDA Start: 06-29-2021 EGD, with monitored anesthesia care RESOLUTION 360 CLIP 235 CM FDA Start: 06-29-2021 EGD, with monitored anesthesia care RESOLUTION 360 CLIP 235 CM FDA Start: 06-29-2021 EGD, with monitored anesthesia care RESOLUTION 360 CLIP 235 CM FDA Start: 06-29-2021 EGD, with monitored anesthesia care RESOLUTION 360 CLIP 235 CM FDA Start: 06-29-2021 EGD, with monitored anesthesia care RESOLUTION 360 CLIP 235 CM FDA Start: 06-29-2021 EGD, with monitored anesthesia care RESOLUTION 360 CLIP 235 CM FDA Start: 06-29-2021 EGD, with monitored anesthesia care RESOLUTION 360 CLIP 235 CM FDA Start: 06-29-2021 EGD, with monitored anesthesia care RESOLUTION 360 CLIP 235 CM FDA Start: 06-29-2021 EGD, with monitored anesthesia care RESOLUTION 360 CLIP 235 CM FDA Start: 06-29-2021 EGD, with monitored anesthesia care RESOLUTION 360 CLIP 235 CM FDA Start: 06-29-2021 EGD, with monitored anesthesia care RESOLUTION 360 CLIP 235 CM FDA Start: 06-29-2021 EGD, with monitored anesthesia care RESOLUTION 360 CLIP 235 CM FDA Start: 06-29-2021 EGD, with monitored anesthesia care RESOLUTION 360 CLIP 235 CM FDA Start: 06-29-2021 EGD, with monitored anesthesia care RESOLUTION 360 CLIP 235 CM FDA Start: 06-29-2021 EGD, with monitored anesthesia care RESOLUTION 360 CLIP 235 CM FDA Start: 06-29-2021 EGD, with monitored anesthesia care RESOLUTION 360 CLIP 235 CM FDA Start: 06-29-2021 EGD, with monitored anesthesia care RESOLUTION 360 CLIP 235 CM FDA Start: 06-29-2021 EGD, with monitored anesthesia care RESOLUTION 360 CLIP 235 CM FDA Start: 06-29-2021 EGD, with monitored anesthesia care RESOLUTION 360 CLIP 235 CM FDA Start: 06-29-2021 EGD, with monitored anesthesia care RESOLUTION 360 CLIP 235 CM FDA Start: 06-29-2021 EGD, with monitored anesthesia care RESOLUTION 360 CLIP 235 CM FDA Start: 06-29-2021 EGD, with monitored anesthesia care RESOLUTION 360 CLIP 235 CM FDA Start: 06-29-2021 ST MATT/NGUYEN Q UADRA ASSURA MP DEFIBRILLATOR (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) FDA Start: 09-11-2020 ST MATT/NGUYEN Q UADRA ASSURA MP DEFIBRILLATOR (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) FDA Start: 09-11-2020 ST MATT/NGUYEN Q UADRA ASSURA MP DEFIBRILLATOR (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) FDA Start: 09-11-2020 ST MATT/NGUYEN Q UADRA ASSURA MP DEFIBRILLATOR (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) FDA Start: 09-11-2020 ST MATT/NGUYEN Q UADRA ASSURA MP DEFIBRILLATOR (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) FDA Start: 09-11-2020 ST MATT/NGUYEN Q UADRA ASSURA MP DEFIBRILLATOR (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) FDA Start: 09-11-2020 ST MATT/NGUYEN Q UADRA ASSURA MP DEFIBRILLATOR (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) FDA Start: 09-11-2020 ST MATT/NGUYEN Q UADRA ASSURA MP DEFIBRILLATOR (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) FDA Start: 09-11-2020 ST MATT/NGUYEN Q UADRA ASSURA MP DEFIBRILLATOR (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) FDA Start: 09-11-2020 ST MATT/NGUYEN Q UADRA ASSURA MP DEFIBRILLATOR (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) FDA Start: 09-11-2020 ST MATT/NGUYEN Q UADRA ASSURA MP DEFIBRILLATOR (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) FDA Start: 09-11-2020 ST MATT/NGUYEN Q UADRA ASSURA MP DEFIBRILLATOR (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) FDA Start: 09-11-2020 [employer] 3369-4 0q Quadra Assura Mp [id number] Start: 09-10-2020 [employer] 7122 D urata [id number] Start: 09-10-2020 ST MATT/NGUYEN Q UADRA ASSURA MP DEFIBRILLATOR (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) FDA Start: 09-11-2020 ST MATT/NGUYEN Q UADRA ASSURA MP DEFIBRILLATOR (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) FDA Start: 09-11-2020 ST MATT/NGUYEN Q UADRA ASSURA MP DEFIBRILLATOR (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) FDA Start: 09-11-2020 ST MATT/NGUYEN Q UADRA ASSURA MP DEFIBRILLATOR (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) FDA Start: 09-11-2020 ST MATT/NGUYEN Q UADRA ASSURA MP DEFIBRILLATOR (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) FDA Start: 09-11-2020 ST MATT/NGUYEN Q UADRA ASSURA MP DEFIBRILLATOR (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) FDA Start: 09-11-2020 ST MATT/NGUYEN Q UADRA ASSURA MP DEFIBRILLATOR (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) FDA Start: 09-11-2020 ST MATT/NGUYEN Q UADRA ASSURA MP DEFIBRILLATOR (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) FDA Start: 09-11-2020 ST MATT/NGUYEN Q UADRA ASSURA MP DEFIBRILLATOR (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) FDA Start: 09-11-2020 ST MATT/NGUYEN Q UADRA ASSURA MP DEFIBRILLATOR (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) FDA Start: 09-11-2020 ST MATT/NGUYEN Q UADRA ASSURA MP DEFIBRILLATOR (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) FDA Start: 09-11-2020 ST MATT/NGUYEN Q UADRA ASSURA MP DEFIBRILLATOR (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) FDA Start: 09-11-2020 ST MATT/NGUYEN Q UADRA ASSURA MP DEFIBRILLATOR (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) FDA Start: 09-11-2020 ST MATT/NGUYEN Q UADRA ASSURA MP DEFIBRILLATOR (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) FDA Start: 09-11-2020 ST MATT/NGUYEN Q UADRA ASSURA MP DEFIBRILLATOR (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) FDA Start: 09-11-2020 ST MATT/NGUYEN Q UADRA ASSURA MP DEFIBRILLATOR (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) FDA Start: 09-11-2020 [employer] 1457q Quartet [id number] Start: 09-10-2020 [employer] 2088tc Tendril Sts [id number] Start: 09-10-2020 ST MATT/NGUYEN Q UADRA ASSURA MP DEFIBRILLATOR (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) FDA Start: 09-11-2020 ST MATT/NGUYEN Q UADRA ASSURA MP DEFIBRILLATOR (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) FDA Start: 09-11-2020 ST MATT/NGUYEN Q UADRA ASSURA MP DEFIBRILLATOR (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) FDA Start: 09-11-2020 ST MATT/NGUYEN Q UADRA ASSURA MP DEFIBRILLATOR (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) FDA Start: 09-11-2020 ST MATT/NGUYEN Q UADRA ASSURA MP DEFIBRILLATOR (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) FDA Start: 09-11-2020 ST MATT/NGUYEN Q UADRA ASSURA MP DEFIBRILLATOR (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) FDA Start: 09-11-2020 ST MATT/NGUYEN Q UADRA ASSURA MP DEFIBRILLATOR (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) FDA Start: 09-11-2020 ST MATT/NGUYEN Q UADRA ASSURA MP DEFIBRILLATOR (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) FDA Start: 09-11-2020 ST MATT/NGUYEN Q UADRA ASSURA MP DEFIBRILLATOR (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) FDA Start: 09-11-2020 ST MATT/NGUYEN Q UADRA ASSURA MP DEFIBRILLATOR (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) FDA Start: 09-11-2020 ST MATT/NGUYEN Q UADRA ASSURA MP DEFIBRILLATOR (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) FDA Start: 09-11-2020 ST MATT/NGUYEN Q UADRA ASSURA MP DEFIBRILLATOR (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) FDA Start: 09-11-2020 Functional Status Date Assessment Result Facility 02-15-2025 Are you deaf, or do you have serious difficulty hearing Yes 02/15/2025 3:03 PM EDT Micah Devries, JAIMIE Yes [facility] 02-15-2025 Are you blind, or do you have serious difficulty seeing, even when wearing glasses No 02/15/2025 3:03 PM EDT Micah Devries, JAIMIE No [facility] 02-15-2025 Do you have serious difficulty walking or climbing stairs Yes 02/15/2025 3:03 PM EDT Micah Devries, JAIMIE Yes [facility] 02-15-2025 Do you have difficul ty dressing or bathing No 02/15/2025 3:03 PM EDT Micah Devries, JAIMIE No [facility] 02-15-2025 Because of a physica l, mental, or emotional condition, do you have difficulty doing errands alone such as visiting a physician's office or shopping Yes 02/15/2025 3:03 PM EDT Micah Devries, JAIMIE Yes [facility] 02-10-2025 Total score [AUDIT-C] 0 02/11/20 25 6:44 PM EDT Katie Hernández RN [facility] 08-22-2021 Functional status Dangle Feet;Chair [facility] Work Phone: [facility] Mental Status Date Assessment Result Facility 02-15-2025 Because of a physica l, mental, or emotional condition, do you have serious difficulty concentrating, remembering, or making decisions No 02/15/2025 3:03 PM EDT Micah Devries, JAIMIE No [facility] 11-27-2023 Cognitive function Level Of Cons ciousness Awake;Alert;Appropriate [facility] Work Phone: 08-22-2021 Cognitive function Voice/Name [facility] Work Phone: Clinical Notes 09-26-2020 to 04-01-2025 Note Date & Type Note Facility 04-01-2025 Discharge summary [facility] 04-01-2025 Radiology Diagnostic study note [facility] Imaging Services [address] [place] [address] CT Chest, Abd, Pel w/Contrast MR#: [id number] Acct: [id number] Name: MEGAN NASCIMENTO Rep #: [id number] : 1940 M 84 From: Can Gerber MD PCP: Dr. Rigoberto Durand MD Status: REG E R Study:CT Chest, Abd, Pel w/Contrast Date of E xam: 04/01/25 Exam# [id number] Ordering Dr: Larissa Romero DO PROCEDURE: CT CHEST, ABD, PEL W/CONTRAST 04/01/2025 REASON FOR EXAM: FALL, LEFT RIB PAIN, TECHNIQUE: Chest, abdomen and pelvis CT with intravenous contrast. Coronal and Sagittal reconstruction series were provided. One or more dose reduction techniques were used (e.g., Automated exposure control, adjustment of the mA and/or kV according to patient size, use of iterative reconstruction technique. PATIENT PREPARATION: Per protocol ORAL CONTRAST TYPE: None. CONTRAST: Isovue-300 VOLUME: 100mL Gauge IV RADIATION DOSE SUMMARY: CTDlvol: 16.4 mGy DLP: 2046.56 mGycm COMPARISON: Prior study dated November 27, 2023. FINDINGS: CT CHEST: Hardware: Left-sided pacemaker is seen. Lymph nodes: No enlarged lymph nodes are seen. Heart and Vasculature: Coronary artery calcification. Cardiomegaly. A dual-chamber pacemaker is seen. Lungs and Airways: Bilateral pleural effusions right greater than left with bibasilar compressive atelectasis. Mild increased markings in the posterior aspect of the right upper lobe abutting the right minor fissure suggestive of atelectasis and/or scarring. Bones: Degenerative changes of the thoracic spine. Hiatal hernia. CT ABDOMEN/PELVIS: Liver: Diffuse fatty infiltration.. Small amount of perihepatic fluid. Fluid is also seen in the right paracolic gutter in keeping with ascites. Small amount of fluid in the pelvis. Gallbladder: Unremarkable Spleen: Normal size. Pancreas: Diffuse fatty atrophy. Adrenals: Unremarkable Kidneys: Bilateral renal atrophy. Stable bilateral renal cysts more prominent on the left side. No evidence of hydronephrosis. Bladder: Unremarkable Small hiatal hernia. Bowel: Colonic diverticulosis without diverticulitis. Appendix: The appendix is not identified. There is no inflammatory process identified in the right lower quadrant to suggest appendicitis. Lymph nodes: Unremarkable. Vasculature: Mild diffuse atherosclerotic calcifications are noted. Increased markings in the anterior abdominal wall subcutaneous tissue. Bones: Degenerative changes of the spine. CT/CT Chest, Abd, Pel w/Contrast IMPRESSION: Bilateral pleural effusions right greater than left with bibasilar atelectasis. Ascites. Stable bilateral renal cysts more prominent on the left side. Fatty infiltration of the liver. Sigmoid diverticulosis. Reading Location: [id number] CC: Dr. Rigoberto Durand MD; Dr. Dax Romero DO ~ Vice President Sales And Marketing: Signed [facility] 04-01-2025 Discharge summary Note Date/Time April 01, 2025 3:55pm [facility] Medical Records Department [address] [place] [address] Emergency Department Summary 04/01/25 MR#: [id number] Acct: [id number] Name: MEGAN NASCIMENTO Rep #:[id number] : 1940 84 From: Dax Romero DO PCP: Dr. Rigoberto Durand MD Status:REG E R Location: ED ADDENDUM by Dr. Dax Romero DO on 04/01/25 at 1555 Patient's EKG reviewed showed ventricular paced rhythm at a rate of 70 bpm no Sgarbossa criteria met. 04/01/25 1555<Electronically signed by Dax Romero DO> Cosigner Signature (if applicable): cc: Dr. Rigoberto Durand MD ~* Signed HPI History of Present Illness Chief Complaint: Fall Narrative Narrative: Patient is a 84-year-old male with past medical history of chronic kidney disease, heart failure with reduced ejection fraction, BPV, diabetes, PE who presents to the emergency department chief complaint of fall and left rib pain. According to the patient he was taking his morning medication and he dropped oneof the pills and bent over to pick this up he states that he lost balance duringthis episode causing him to fall and hit a bookshelf. He states he did not passout. He denies any blood thinning medications. 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 He states that over the last month he has had approximately 4 falls and states that ever since he had been diagnosed with diverticulitis. He does live alone. [facility] Medical History Chronic pain of toe of left foot Displaced fracture of proximal phalanx of left lesser toe(s), initial encounter for closed fracture Diabetes MIAU (minor aphthous ulceration) Hiatal hernia CKD (chronic kidney disease), stage IV Pulmonary embolism HFrEF (heart failure with reduced ejection fraction) Blood transfusion during current hospitalisation Anticoagulant-induced bleeding GI bleed Benign positional vertigo Home Medications ?Medication ?Instructions ?Recorded ?Last Taken ?Type levothyroxine 75 mcg tablet 75 mcg PO DAILY thyroid Unknown History mecobalamin (vitamin B12) 1,000 1,000 mcg PO DAILY ane erica 06/28/21 Unknown History mcg chewable tablet (B12 Active) metoprolol succinate 100 mg 100 mg PO DAILY heart 04/10 Unknown History tablet,extended release 24 hr fexiebcqseti-ukr-hsaae acid-vit 1 tab PO DAILY not on pcp med list 06/28/21 Unknown History K-lycop 400 mcg-20 mcg-370 mcg tablet (Men's 50 Plus Multivitamin) tamsulosin 0.4 mg capsule 0.4 mg PO DAILY per md offic e list 06/28/21 Unknown History ferrous sulfate 325 mg (65 mg 325 mg PO DAILY #30 tabs 07/01/21 Unknown Rx iron) tablet pantoprazole 40 mg tablet,delayed 40 mg PO BID #120 ta bs 09/21/21 Unknown Rx release sucralfate 100 mg/mL oral 10 ml PO BID md office #1,00 0 mL 09/21/21 Unknown Rx suspension colestipol 1 gram tablet 0.5 g (1/2 x 1 gram) PO .brad ry 11/19/21 Unknown Rx other day 30 days #30 tabs gabapentin 400 mg capsule 400 mg PO TID per md office list 11/27/23 Unknown History glimepiride 1 mg tablet 1 mg PO DAILY per pcp med [facility] 11/27/23 Unknown History rosuvastatin 20 mg tablet 20 mg PO DAILY per pcp 11/26 Unknown History sacubitril 24 mg-valsartan 26 mg 1 tab PO BID per pcp med list 11/27/23 Unknown History tablet (Entresto) Held on 12/02/23. Instructions: Hold for at least 1 week. GABI on CKD. sertraline 50 mg tablet 50 mg PO DAILY per md office 11/27/23 Unknown History sildenafil 100 mg tablet PO per pcp med list 11/27/23 Unknown History sucralfate 1 gram tablet (Carafate) 1 g PO BID per MD office list 11/27/23 Unknown History acetaminophen 325 mg tablet 650 mg (2 x 325 mg) PO Q6H PRN PRN 12/02/23 Unknown Rx Pain 1-10 Or Fever >100.7 #0 tabs amoxicillin 500 mg-potassium 1 tab PO BIDCM 5 days #10 tabs 12/02/23 Unknown Rx clavulanate 125 mg tablet doxycycline monohydrate 100 mg 100 mg PO BID 5 days #1 0 caps 12/02/23 Unknown Rx capsule insulin lispro 100 unit/mL See Protocol subcut TIDAC # 0 mL 12/02/23 Unknown Rx subcutaneous pen (Humalog KwikPen (U-100) Insulin) miconazole nitrate 2 % topical 1 applic topical BID #0 grams 12/02/23 Unknown Rx cream oxycodone 5 mg tablet 2.5 - 5 mg (0.5 - 1 x 5 mg) PO Q4H 12/02/23 Unknown Rx PRN PRN Pain Score 4-10 3 days #7 tabs spironolactone 25 mg tablet 25 mg PO DAILY not on pcp list 30 12/02/23 Unknown Rx days #0 tabs torsemide 20 mg tablet 20 mg PO BID per md of 30 da ys #0 12/02/23 Unknown Rx tabs amoxicillin 875 mg-potassium 1 tab PO BID 10 days #19 tabs 12/12/24 Unknown Rx clavulanate 125 mg tablet hydrocodone-acetaminophen 5-325mg 1 tab PO Q6H PRN PRN Pain 2 days 12/12/24 Unknown Rx 5mg-325mg #8 TABLETS Allergy/AdvReac Type Severity Reaction Status Date / Time No Known Allergies Allergy Verified 04/01/25 12:40 Family History Other Cancer Hypertension Surgical History History of permanent cardiac pacemaker placement Social History household members: spouse Smoking Status: Never smoker alcohol intake: never substance use type: does not use ROS ROS ED ROS Narrative Constitutional: Denies headache, lightness, denies confusion, chills Eyes: Denies double vision Cardiovascular: Denies chest pain Respiratory: Denies coughing wheezing shortness of breath Abdomen: Denies abdominal pain nausea vomit diarrhea : Denies urinary symptoms Neurological: Denies any numbness, weakness, tingling Musculoskeletal: Complains of left rib pain as noted above Skin: Complains to cut to the back of the head EXAM Physical Exam Narrative Exam Narrative: General: Patient was lying in bed rest comfortably did not appear to be in acutedistress Head: Patient has a small approximately 1 cm laceration to the back of the righthead, normocephalic Eyes: PERRL bilaterally, EOMI bilaterally, no conjunctival injection noted, no nasal septal hematomas noted bilaterally, no raccoon eyes no Cooney sign Neck: Soft, supple, trachea midline, no tenderness palpation midline of the cervical spine Cardiovascular: Regular rate and rhythm no murmurs gallops rubs noted Respiratory: Clear to auscultation bilaterally Abdomen: Soft, nondistended, no tenderness palpation Musculoskeletal: Patient has pain with palpation over the left lateral rib cage all the bony prominences palpated joints taken through full range of motion no pain elicited Extremities: Radial pulses +2/4 in the bilateral extremities, +4/5 strength noted in the bilateral upper and lower extremities Neurological: Patient following commands and that he was at [facility] theyear is 2024 Skin: Warm, dry, see head Const Vital Signs: 04/01/25 12:34 04/01/25 13:07 04/01/25 14:31 Temperature 97.5 F L Temperature Source Oral Pulse Rate 60 62 Respiratory Rate 16 27 H Respiratory Effort Normal Non-Labored Respiratory Depth Normal Respiratory Pattern Normal Blood Pressure 135/80 H 138/76 H Blood Pressure Mean 98 96 Pulse Ox 99 98 97 Oxygen Delivery Method Room Air Room Air Room Air MDM MDM MDM Narrative Medical decision making narrative: Patient is a 84-year-old male who presents to the emergency department chief complaint of mechanical fall with a laceration to his head. He also is complaining of left rib pain. On the differential diagnose includes but not limited to rib fracture, pneumothorax, head laceration. Once workup is obtainedreviewed he will be reevaluated. Patient states that his tetanus shot is up-to-date within the last 5 years. Patient CBC reviewed which showed no evidence leukocytosis white blood, 5.1, hemoglobin was 16.3, plate count was 203. Patient INR normal 0.6, PT of 19.3. P sodium normal 139, potassium of 3.9, creatinine was 2.19 he has underlying chronic kidney disease and this does appear to be around his baseline. Patient direct bilirubin was 1.42, total bilirubin 2.82, AST of 40.Patient CT head brainwithout contrast showed chronic changes no acute findings noted. Patient CT cervical spine showed multilevel disc space narrowing degeneration with multilevel neuroforaminal stenosis and facet joint osteoarthritis. Patient CT chest abdomen pelvis with IV contrast reviewed and showed bilateral pleural effusions right greater than the left with basilar atelectasis. Ascites noted. Stable bilateral renal cyst more prominent in the left side fatty infiltration of the liver, sigmoid diverticulosis. Patient ambulated here in the emergency department tolerated this well no hypoxia no tachycardia and felt at his baseline and would like to go home. His laceration was stapled see procedure note for separate details. He is advised to have his kota removed in approximately 5 days. He was given a hard copy of the CT result and was advised to take this to his doctor. He was encouraged to return with worsening symptoms or concerns. He is agreeable this plan all course concerns answered is discharged home in stable condition. Procedure note Procedure name: Laceration repair Indication: Reduce risk of infection Location: Head laceration 1 cm no active bleeding simple Preprocedure diagnosis: Laceration Postprocedure diagnosis: Repaired laceration Informed consent was obtained prior to procedure started. Procedure: The appropriate timeout was taken. The area was prepped and draped in usual sterile fashion. Local anesthesia was achieved using 3 cc of lidocaine 1% without epinephrine. Wound was copiously irrigated. 3 kota were placed. Estimated blood loss was less than 0.5 mL. Dressing was applied to the area andanticipatory guidance, as well as standard postprocedure care was explained. Return precautions are given. Patient tolerated procedure well without any complications. Follow-up visit for suture removal and evaluation of laceration. Lab Data Labs: Laboratory Results - last 24 hr 04/01/25 04/01/25 13:04 13:30 WBC 5.1 RBC 5.61 Hgb 16.3 Hct 49.1 MCV 87.5 MCH 29.1 MCHC 33.2 RDW Std Deviation 61.8 H RDW Coeff of Anuradha 20.3 H Plt Count 203 MPV 10.8 Immature Gran % (Auto) 0.800 Neut % (Auto) 66.1 Lymph % (Auto) 18.1 L Haskell % (Auto) 10.6 H Eos % (Auto) 2.4 Baso % (Auto) 2.0 H Absolute Neuts (auto) 3.4 Absolute Lymphs (auto) 0.92 Nucleated RBC % 0 Platelet Estimate ADEQUATE Anisocytosis 1+ PT Cancelled 19.3 H INR Cancelled 1.6 APTT Cancelled 47.0 H Sodium 139 Potassium 3.9 Chloride 100 Carbon Dioxide 19.7 L Anion Gap 19 H BUN 38 H Creatinine 2.19 H Estim Creat Clear Calc 26.27 L Est GFR (MDRD) Non-Af 29 L BUN/Creatinine Ratio 17.4 Glucose 91 Calcium 9.2 Total Bilirubin 2.82 H Direct Bilirubin 1.42 H AST 40 H ALT 12 Alkaline Phosphatase 129 Total Protein 6.9 Albumin 3.8 Globulin 3.0 Radiography Diagnostic Testing: Clinical Impression(s) from Imaging Studies Brain CT 04/01/25 12:45 IMPRESSION: CHRONIC CHANGES. NO ACUTE FINDINGS. Reading Location: [id number] Cervical Spine CT 04/01/25 12:45 IMPRESSION: Multilevel disc space narrowing and degeneration with the multilevel neural foraminal stenosis and facet joint osteoarthritis. Reading Location: [id number] Chest/Abdomen/Pelvis CT 04/01/25 12:45 IMPRESSION: Bilateral pleural effusions right greater than left with bibasilar atelectasis. Ascites. Stable bilateral renal cysts more prominent on the left side. Fatty infiltration of the liver. Sigmoid diverticulosis. Reading Location: [facility] Discharge Plan Triage Chief Complaint: Fall ED Provider: Dax Romero Dx/Rx/DC Orders Clinical Impression: Congestive heart failure, Chronic kidney disease, Closed head injury without loss of consciousness, Laceration of head, Fall Prescriptions: No Action sucralfate 100 mg/mL suspension 10 ml PO BID Qty: 1000 0RF pantoprazole 40 mg tablet,delayed release (DR/EC) 40 mg PO BID Qty: 120 3RF colestipol 1 gram tablet 0.5 g PO .every other day 30 Days Qty: 30 1RF metoprolol succinate 100 mg Tablet Extended Release 24 Hr 100 mg PO DAILY levothyroxine 75 mcg Tablet 75 mcg PO DAILY tamsulosin 0.4 mg Capsule 0.4 mg PO DAILY Rx Instructions: source is MD office not daughter in law Men's 50 Plus Multivitamin 400-20-370 mcg Tablet 1 tab PO DAILY mecobalamin (vitamin B12) [B12 Active] 1,000 mcg Tablet,Chewable 1,000 mcg PO DAILY ferrous sulfate 325 mg (65 mg iron) tablet 325 mg PO DAILY Qty: 30 0RF amoxicillin-pot clavulanate 875-125 mg tablet 1 tab PO BID 10 Days Qty: 19 0RF hydrocodone-acetaminophen 5-325 mg tablet 1 tab PO Q6H PRN PRN (Reason: Pain) 2 Days Qty: 8 0RF sertraline 50 mg tablet 50 mg PO DAILY gabapentin 400 mg capsule 400 mg PO TID glimepiride 1 mg tablet 1 mg PO DAILY Rx Instructions: source is per pt PCP med list rosuvastatin 20 mg tablet 20 mg PO DAILY Rx Instructions: source is per pcp med list Entresto 24-26 mg tablet 1 tab PO BID Rx Instructions: source is from pcp office sildenafil 100 mg tablet PO Rx Instructions: source is per pcp med list sucralfate [Carafate] 1 gram tablet 1 g PO BID Rx Instructions: per md office list: #60 starting 11/04/23 with no refills. (source is not daughter in law however, it wont let me change the source) doxycycline monohydrate 100 mg Capsule 100 mg PO BID 5 Days Qty: 10 0RF amoxicillin-pot clavulanate 500-125 mg Tablet 1 tab PO BIDCM 5 Days Qty: 10 0RF oxycodone 5 mg Tablet 2.5 - 5 mg PO Q4H PRN PRN (Reason: Pain Score 4-10) 3 Days Qty: 7 0RF miconazole nitrate 2 % Cream 1 applic topical BID Qty: 0 0RF Protocol: *Topical Application Instructions APPLICATION INSTRUCTIONS: left toe web spaces Rx Instructions: In the interdigital webspace in toes insulin lispro [Humalog KwikPen Insulin] 100 unit/mL Insulin Pen See Protocol subcut TIDAC Qty: 0 0RF Protocol: 3. Sliding Scale Insulin Med Dosing Condition: 150-189 mg/dl = 1 unit Condition: 190-229 mg/dl = 2 units Condition: 230-269 mg/dl = 3 units Condition: 270-309 mg/dl = 4 units Condition: 310-349 mg/dl = 5 units Condition: 350-399 mg/dl = 6 units Condition: 400-449 mg/dl = 7 units Condition: Greater than 449 call physician Protocol Text: - Use for Total Daily Dose of Insulin 37-55 units - Obsese, infected, or steroid patients MEDIUM DOSING ALGORITHIM acetaminophen 325 mg Tablet 650 mg PO Q6H PRN PRN (Reason: Pain 1-10 Or Fever >100.7) Qty: 0 0RF torsemide 20 mg tablet 20 mg PO BID 30 Days Qty: 0 0RF Rx Instructions: pt takes 40mg po BID spironolactone 25 mg Tablet 25 mg PO DAILY 30 Days Qty: 0 0RF Primary Care Provider: Rigoberto Durand Referrals: Rigoberto Durand MD [Primary Care Provider] - Activity Restrictions/Additional Instructions: Follow-up with your doctors in outpatient setting. Return with worsening symptoms or any other concerns. Have your kota removed in approximately 5 days by your primary care physician. Showed them the CT results that were printed off for your records. Print Language: Macedonian Disposition Disposition: Home, Self Care What to do if you have Problems For any increased pain, shortness of breath, bleeding, nausea or vomiting, chestpain, or any unexpected problems, contact your Primary Care Provider. Call [facility] ([phone]) or report to the closest Emergency Room. Call 911 if necessary. 04/01/25 [id number] <Electronically signed by Dax Romero DO> Cosigner Signature (if applicable): CC: Dr. Rigoberto Durand MD ~ Signed [facility] Work Phone: [phone]) 795-701409-12-2025 Radiology Diagnostic study note [facility] Imaging Services [address] [place] [address] [id number] Spine Cervical without Contras MR#: [id number] Acct: [id number] Name: MEGAN NASCIMENTO Rep #: [id number] : 1940 M 84 From: Can Gerber MD PCP: Dr. Rigoberto Durand MD Status: REG E R Study:Spine Cervical without Contras Date of Exam: 04/01/25 Exam# [id number] Ordering Dr: Larissa Romero DO PROCEDURE: SPINE CERVICAL WITHOUT CONTRAS 04/01/2025 REASON FOR EXAM: TRAUMA TECHNIQUE: Procedure Code: CTSPC Modality: CT Procedure: SPINE CERVICAL WITHOUT CONTRAS Coronal and Sagittal reconstruction series were provided. One or more dose reduction techniques were used (e.g., Automated exposure control, adjustment of the mA and/or kV according to patient size, use of iterative reconstruction technique. RADIATION DOSE SUMMARY: CTDlvol: 23.38 mGy DLP: 509.35 mGycm COMPARISON: None FINDINGS: Alignment: Straightening of the normal cervical lordosis. Vertebrae: Multilevel spondylosis. Soft Tissues: No prevertebral soft tissue swelling. Other: C1-2: Degenerative changes at the atlantoaxial joint. C2-3: Mild degree of disc space narrowing. Facet joint osteoarthritis and hypertrophy worse on the right side. No significant stenosis seen. Minimal anterior listhesis of C2 on C3 most likely secondary to the facet joint osteoarthritis. C3-4: Marked degree of disc space narrowing. Spondylosis. Subchondral sclerosis. Moderate degree ofbilateral neural foraminal and central canal stenosis. C4-5: Marked degree of disc space narrowing. Spondylosis. Uncovertebral arthrosis. Mild bilateral neural foraminal stenosis. C5-6: Marked degree of disc space narrowing. Spondylosis. Uncovertebral arthrosis. Mild degree of bilateral neural foraminal stenosis. C6-7: Marked degree of disc space narrowing. Facet joint osteoarthritis and hypertrophy. Mild bilateral neural foraminal stenosis. C7-T1: Mild degree of disc space narrowing. Facet joint osteoarthritis. CT/Spine Cervical without Contras IMPRESSION: Multilevel disc space narrowing and degeneration with the multilevel neural foraminal stenosis and facet joint osteoarthritis. Reading Location: [facility] CC: Dr. Rigoberto Durand MD; Dr. Dax Romero DO ~ Vice President Sales And Marketing: Signed [facility]09-12-2025 Radiology Diagnostic study note [facility] Imaging Services [address] [place] [address] Brain/Head without Contrast MR#: [id number] Acct: [id number] Name: MEGAN NASCIMENTO Rep #: [id number] : 1940 M 84 From: Can Gerber MD PCP: Dr. Rigoberto Durand MD Status: REG E R Study:Brain/Head without Contrast Date of Exa m: 04/01/25 Exam# [id number] Ordering Dr: Larissa Romero DO PROCEDURE: BRAIN/HEAD WITHOUT CONTRAST 04/01/2025 REASON FOR EXAM: TRAUMA Laceration to the right side of the skull. TECHNIQUE: Procedure Code: CTBR Modality: CT Procedure: BRAIN/HEAD WITHOUT CONTRAST Coronal and Sagittal reconstruction series were provided. One or more dose reduction techniques were used (e.g., Automated exposure control, adjustment of the mA and/or kV according to patient size, use of iterative reconstruction technique. RADIATION DOSE SUMMARY: CTDlvol: 44.99 mGy DLP: 829.85 mGycm COMPARISON: Prior study dated June 28, 2021. FINDINGS: Brain: Low density in the periventricular white matter suggests mild chronic small vessel ischemic changes. CSF Spaces: Mild generalized cerebral atrophy Sinuses/Mastoids: Partial opacification at the base of the right maxillary sinus. Bones: No fracture is seen. CT/Brain/Head without Contrast IMPRESSION: CHRONIC CHANGES. NO ACUTE FINDINGS. Reading Location: [facility] CC: Dr. Rigoberto Durand MD; Dr. Dax Romero DO ~ Vice President Sales And Marketing: Signed [facility]08-20-2025 Note03/09/25 CHW Transitions Outreach in regards to 02/10/2025 ED Visit. Community Health Worker Note: -Patient active with Transitions CM RN EPIC review completed. Per CHW: -Patient outreach due to leg swelling. Per Patient: 03/09/25 1032 Physical Activity On average, how many days per week do you engage in moderate to strenuous exercise (like a brisk walk)? 0 days On average, how many minutes do you engage in exercise at this level? 0 min Financial Resource Strain How hard is it for you to pay for the very basics like food, housing, medical care, and heating? Not hard Housing Stability In the last 12 months, was there a time when you were not able to pay the mortgage or rent on time? N In the past 12 months, how many times have you moved where you were living? 0 At any time in the past 12 months, were you homeless or living in a detention (including now)? N Transportation Needs In the past 12 months, has lack of transportation kept you from medical appointments or from getting medications? no In the past 12 months, has lack of transportation kept you from meetings, work, or from getting things needed for daily living? No Food Insecurity Within the past 12 months, you worried that your food would run out before you got the money to buy more. Never true Within the past 12 months, the food you bought just didn't last and you didn't have money to get more. Never true Stress Do you feel stress - tense, restless, nervous, or anxious, or unable to sleep at night because your mind is troubled all the time - these days? Not at all Social Connections In a typical week, how many times do you talk on the phone with family, friends, or neighbors? More than 3 How often do you get together with friends or relatives? More than 3 How often do you attend gnosticism or mandaeism services? Pt Declined Do you belong to any clubs or organizations such as gnosticism groups, unions, fraternal or athletic groups, or school groups? Pt Declined How often do you attend meetings of the clubs or organizations you belong to? Pt Declined Are you , , , , never , or living with a partner? Intimate Partner Violence Within the last year, have you been afraid of your partner or ex-partner? No Within the last year, have you been humiliated or emotionally abused in other ways by your partner or ex-partner? No Within the last year, have you been kicked, hit, slapped, or otherwise physically hurt by your partner or ex-partner? No Within the last year, have you been raped or forced to have any kind of sexual activity by your partner or ex-partner? No Alcohol Use Q1: How often do you have a drink containing alcohol? Never Q2: How many drinks containing alcohol do you have on a typical day when you are drinking? None Q3: How often do you have six or more drinks on one occasion? Never Utilities In the past 12 months has the [employer], [employer], [employer], or [employer] threatened to shut off services in your home? No Health Literacy How often do you need to have someone help you when you read instructions, pamphlets, or other written material from your doctor or pharmacy? Patient declines to respond --- -Feeling very good. -[facility] PT/OT was supposed to be out a day or so ago but hasn't come. -Weight is good, down to 177 lb. Reports on leg swelling or SOB. -Aware of upcoming [facility] appointments. -Taking all medications as prescribed. -Does not need any financial, transportation, or food assistance, he's doing just fine. -Community health worker assistance is not needed at this time. Transitions Follow-up: -CHW avail for follow up calls. -RN continue to follow. -#3 transition outreach call complete. [facility] upcoming appointments: -05/04 Cardiology -06/03 Cardiology JANKI Tian [phone]08-14-2025 History of Present illness Narrative* Petra Renteria, CHLOE - [facility]ER - 03/03/2025 2:30 PM EDT Images from the original note were not included. [facility] Cardiology Office Note DATE of SERVICE: 03/03/25 TIME of SERVICE: 2:43 PM Reason for Visit: Chief Complaint Patient presents with Hospital Follow-up History ofPresent Illness: Megan Nascimento is a 84 y.o. male who is known to Dr. Roth. He has a history of nonischemic cardiomyopathy with severe LV dysfunction, EF was 20%, increased to 41% after cardiac resynchronizationtherapy and defibrillator placement. He was recently admitted to [facility] 01/28/2025-02/01/2025 and treated for heart failure exacerbation, diuresed with IV Lasix. Inpatient transthoracic echo 01/31/2025-noted severe LV dysfunction, EF-12%. He was discharged on Demadex 40 mg daily. It was noted after his discharge he had a readmission 02/10/2025- 02/15/2025 in which she was treated for lower extremity cellulitis, and was given IV antibiotics. Today in office he states his weight is stable, he is very cognizant of his daily weights at home. He is down 11 pounds compared to his office visit prior to his admission January 26, 2025. He continues to tolerate his guideline directed therapy including metoprolol succinate 100 mg daily, Entresto 24/26 mg twice daily, continues on Demadex 40 mg daily. He states he continues to have mild swelling and redness of his lower extremities, however much improved overall. Denies any significant symptoms of shortness of breath. He is also treated for stage IV chronic kidney disease, with a GFR in the 20s at baseline, baselinecreatinine 2.4. Past Medical History: Medical History[1] Past Surgical History Surgical History[2] Family History Family History[3] Social History Social History[4] Allergies: Allergies[5] Medications: Current Medications[6] Review of Systems: Review of Systems Constitutional: Negative for activity change, chills, diaphoresis, fatigue and fever. Pt states feeling well HENT: Negative for nosebleeds and trouble swallowing. Eyes: Negative for discharge and visual disturbance. Respiratory: Negative for apnea, cough, chest tightness, shortness of breath and wheezing. Denies SOB, states breathing improved Cardiovascular: Negative for chest pain, palpitations and leg swelling. Denies chest pain or palpitations Gastrointestinal: Negative for abdominal distention, abdominal pain, blood in stool, diarrhea, nausea and vomiting. Endocrine: Negative for cold intolerance and heat intolerance. Genitourinary: Negative for hematuria. Musculoskeletal: Negative for gait problem and myalgias. Ambulates with a walker Skin: Negative for color change and rash. Neurological: Negative for dizziness, seizures, syncope, facial asymmetry, speech difficulty, weakness, light-headedness, numbness and headaches. Denies dizziness or light headedness Hematological: Does not bruise/bleed easily. Psychiatric/Behavioral: Negative for dysphoric mood. Physical Examination: Vitals: BP 92/64 (BP Location: Right arm, Patient Position: Sitting, BP Cuff Size: Adult) Pulse 60 Ht 5' 7 (1.702 m) Wt 183 lb (83 kg) SpO2 100% BMI 28.66 kg/m Body mass index is 28.66 kg/m . Physical Exam Constitutional: Appearance: Normal appearance. Comments: Elderly, somewhat frail appearing HENT: Head: Normocephalic. Eyes: General: Right eye: No discharge. Left eye: No discharge. Neck: Comments: + JVD Cardiovascular: Rate and Rhythm: Normal rate and regular rhythm. Heart sounds: No murmur heard. Comments: Regular, rate controlled, heart tones are distant Pulmonary: Effort: Pulmonary effort is normal. Breath sounds: Normal breath sounds. No wheezing or rales. Comments: clear Abdominal: General: Bowel sounds are normal. There is no distension. Palpations: Abdomen is soft. Musculoskeletal: Cervical back: Neck supple. Right lower leg: No edema. Left lower leg: No edema. Comments: Mild generalized edema, skin red knees/calves down. Pt states improved, weight stable Skin: General: Skin is warm. Findings: No erythema or rash. Neurological: Mental Status: He is alert and oriented to person, place, and time. Psychiatric: Behavior: Behavior normal. Laboratory Tests: Lab Results Component Value Date GLUCOSE 101 02/15/2025 CALCIUM 8.8 02/15/2025 NA 141 02/15/2025 K 3.5 02/15/2025 CO2 22 (L) 02/15/2025 CL 107 02/15/2025 BUN 24 (H) 02/15/2025 CREATININE 1.94 (H) 02/15/2025 @LASTCMP@ Lab Results Component Value Date CHOL 166 05/14/2021 Lab Results Component Value Date TRIG 109 05/14/2021 Lab Results Component Value Date HDL 34 (L) 05/14/2021 No results found for: LDLCALC No results found for: VLDL Lab Results Component Value Date CHOLHDLRATIO 5 05/14/2021 Other Testing: Cardiac Tests: Echo (date: 01/31/2025): Left Ventricle: Left ventricle size is normal. Mildly increased wall thickness. Severely reduced left ventricular systolic function. EF by 2D Simpsons Biplane is 12%. Severe global hypokinesis present. See diagram for wall motion findings. Abnormal dyskinetic wall motion may be due to RV pacing. Septal motion is consistent with pacing. Right Ventricle: Right ventricle is mildly dilated. Lead present in the right ventricle. Low normalsystolic function. Aortic Valve: Mild to moderate (1-2+) regurgitation with an eccentrically directed jet. Mild stenosis of the aortic valve. AV mean gradient is 3 mmHg. AV peak velocity is 1.2 m/s. LVOT:AV VTI Index is 0.33. AV area by continuity VTI is 1.4 cm2. AV Area by Planimetry is 1.7 cm2. Mitral Valve: Mildly thickened leaflets. Mild (1+) regurgitation. Tricuspid Valve: Moderate (2+) regurgitation with an eccentrically directed jet. Both central and toward septum. Moderately elevated RVSP. Est RA pressure is 15 mmHg. RVSP is 50 mmHg. Left Atrium: Left atrium is severely dilated. LA Vol Index A/L is 58 mL/m2. Right Atrium: Right atrium is severely dilated. Lead present in the right atrium. Aorta: Normal sized sinuses of Valsalva. Moderately dilated ascending aorta. Ao ascending diameter is 4.3 cm. Compared to report of 02/2022 the LVEF has decreased from 30-35% to about 10%. Assessment and Plan: 1. Nonischemic cardiomyopathy with severe LV dysfunction-EF found to be worse per most recent transthoracic echo January 31, 2025-EF 12% -Overall patient appears compensated, breathing and swelling stable -Continues on Demadex 40 mg daily, Entresto 24/26 mg twice daily, metoprolol succinate 100 mg daily. -He is very cognizant of his daily weights, he understands how to recognize early signs symptoms ofheart failure, and when it is important to call the office. 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 History of stage IV chronic kidney disease-GFR baseline in the 20s, creatinine approximately 2.4. I did provide orders for repeat BMP and CBC to document stability. 4. History of chronic anemia-history of prior PE with no recurrence. He has been off oral anticoagulation due to history of GI bleed and chronic anemia since February 2023 5. Follow-up-3 months and as needed, I will be looking for results of his blood work and be back incontact with Megan once available. 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 [1] Past Medical History: Diagnosis Date Acute HFrEF (heart failure with reduced ejection fraction) ([facility]) 09/22/2020 Bladder cancer (HCC) CHF (congestive heart failure) (HCC) Chronic HFrEF (heart failure with reduced ejection fraction) ([facility]) 09/21/2020 Chronic kidney disease DM (diabetes mellitus) (HCC) DM (diabetes mellitus) (HCC) DVT (deep venous thrombosis) (HCC) ED (erectile dysfunction) Follicular non-Hodgkin's lymphoma (HCC) GERD (gastroesophageal reflux disease) GERD (gastroesophageal reflux disease) HTN (hypertension) HTN (hypertension) Hyperlipidemia Left bundle branch block 09/11/2020 Non-ischemic cardiomyopathy (CMS/HCC) ([facility]) Presence of cardiac resynchronization therapy defibrillator (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) 01/17/2022 PUD (peptic ulcer disease) Pulmonary embolism (HCC) Pulmonary fibrosis (HCC) Rosacea Stage 3b chronic kidney disease ([facility]) 09/21/2020 Tachycardia [2] Past Surgical History: Procedure Laterality Date BONE MARROW BIOPSY CARDIAC PACEMAKER PLACEMENT COLONOSCOPY COLONOSCOPY COSMETIC SURGERY face lift, rhinoplasty EYE SURGERY cataract removal FACIAL COSMETIC SURGERY LYMPH NODE BIOPSY SEPTOPLASTY SKIN BIOPSY VENTRICULAR CARDIAC PACEMAKER INSERTION 09/11/2020 Bi-V ICD [3] Family History Problem Relation Name Age of Onset High Blood Pressure Father High Blood Pressure Mother [4] Social History Tobacco Use Smoking status: Former Current packs/day: 0.00 Types: Cigarettes Quit date: 11/08/1999 Years since quittin.3 Passive exposure: Past Smokeless tobacco: Never Tobacco comments: Patient states he quit smoking in 1999, no history of vaping or smokeless tobacco. Smoking cessation counseling no indicated. Vaping Use Vaping status: Never Used Substance Use Topics Alcohol use: Yes Comment: occasionally Drug use: No Comment: caffeine:1-2 cups of coffee a day [5] Allergies Allergen Reactions Atorvastatin Other reaction(s): Myalgia Latanoprost Other reaction(s): Blurring of visual image, Excessive tear production, Red eye Lovastatin Other reaction(s): Myalgia [6] Current Outpatient Medications: cholecalciferol (Vitamin D-3) 25 MCG (1000 UT) capsule, Take by mouth., Disp: , Rfl: cyanocobalamin (Vitamin B-12) 1000 MCG tablet, Take 1 tablet by mouth in the morning., Disp: , Rfl: ferrous sulfate 325 (65 Fe) MG tablet, Take 325 mg by mouth., Disp: , Rfl: gabapentin (Neurontin) 100 MG capsule, Take 100 mg by mouth., Disp: , Rfl: glimepiride (Amaryl) 1 MG tablet, Take 1 mg by mouth daily (with breakfast)., Disp: , Rfl: levothyroxine (Synthroid, Levoxyl) 25 MCG tablet, Take 25 mcg by mouth in the morning., Disp: , Rfl: metoprolol succinate XL (Toprol-XL) 100 MG 24 hr tablet, Take 100 mg by mouth in the morning., Disp: , Rfl: Multiple Vitamin (multivitamin) tablet, Take 1 tablet by mouth daily., Disp: , Rfl: sertraline (Zoloft) 25 MG tablet, Take 25 mg by mouth in the morning., Disp: , Rfl: sucralfate (Carafate) 1 g tablet, Take 1 g by mouth., Disp: , Rfl: tamsulosin (Flomax) 0.4 MG 24 hr capsule, Take 1 capsule (0.4 mg) by mouth daily., Disp: 30 capsule, Rfl: 3 pantoprazole (ProtoNix) 40 MG EC tablet, Take 1 tablet (40 mg) by mouth every morning (before breakfast). Do not crush, chew, or split., Disp: 90 tablet, Rfl: 3 rosuvastatin (Crestor) 20 MG tablet, Take 1 tablet (20 mg) by mouth daily., Disp: 90 tablet, Rfl: 3 sacubitril-valsartan (Entresto) 24-26 MG tablet, Take 1 tablet by mouth in the morning and 1 tabletbefore bedtime., Disp: 180 tablet, Rfl: 1 torsemide (Demadex) 20 MG tablet, Take 2 tablets (40 mg) by mouth daily. Patient reports that he takes 20mg twice daily (morning and evening)., Disp: 200 tablet, Rfl: 1 documented in this [facility]08-13-2025 History of Present illness Narrative* Jany Bonilla RN - 03/02/2025 12:24 PM EDT 03/02/25 1204 Transitions Post-Discharge Call - Follow-Up Were there any changes to medications since previously reviewed/any questions? No Reason for admission is resolving? Yes Are you experiencing any new symptoms? Yes (Patient reports weight gain. See note below. Will route update to cardiology. He is scheduled to see (Everton Renteria CNP) tomorrow.) Was [facility] initiated if ordered? Yes (MIRI-/PT) Does patient have all necessary follow up appointments scheduled? Yes;Other information (03/03 Cardiology (Everton Renteria CNP)) Other information for follow-up appointments Patient reports that he thought he had a PCP visit with Dr. Bourne tomorrow and a cardiology visit on Friday. Made him aware of cardiology visit tomorrow and reviewed appointment details.He notes that he will contact Dr. Bourne's office to confirm when his appointment is scheduled for and will reschedule if it is tomorrow. He notes that he plans to attend the cardiology visit. Does the patient have any questions/concerns at this time? 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 Re-introduced myself and my role on [facility]'s transitional team. He reports that the MIRI JALLOH was out to see him this morning and all of his vitals were good. He reports that his weight was 185 lbs this morning, but he had already eaten breakfast and had his shoes on. He mentioned that had been running 177.7 lbs and 176 lbs. Inquired when those weights were from. He notes that one was from over the weekend and the other was on Friday. He notes that he normally weighs himself first thing in the morning before he eats and without shoes on, but his routine was thrown off this morning since the [facility] nurse was out. He denies any swelling in his legs. He reports that he is breathing well on room air. He reports some SOB if he exerts himself too much, but he recovers easily with rest. He has not needed to use his home oxygen recently. He notes that he does have a portable oxygen concentrator if needed at home. He mentioned that he has been using his Torsemide 20mg tabs twice daily (morning and evening) rather than 40mg all at once. He plans to discuss during his cardiology visit tomorrow to see if he should begin taking both tablets at the same time. We reviewed s/s of CHF exacerbation to monitor for (weight gain of 2-3+ lbs overnight and/or 5+ lbs in a week, increased swelling, increased SOB), the importance of daily weights, and the importance of contacting cardiology immediately to report any symptoms or concerns. He states understanding. Let him know that I would send a message over to cardiology to report his weight gain and encouraged him to attend his follow up visit with cardiology tomorrow. Patient notes that he plans to attend. Patient reports that his legs are looking and feeling much better. He notes that the redness is clearing up and his legs look almost normal now. He denies any ongoing heat or pain in his legs. He does report some pain in his knees/shoulders d/t arthritis. Reviewed s/s of cellulitis to monitor for (r edness, heat, pain, swelling) and the importance of contacting his PCP immediately with any symptoms or concerns. He states understanding. He notes that he lives home alone and his kids and ex- check in on him. He notes that they alsoprovide transportation to appointments if he does not drive himself. He has not driven since discharge home. He looks forward to getting out of the house for his appointment tomorrow, as he reports cabin fever. He denies any other questions, concerns, or needs at this time. Will route to W, Jamila, to complete transitional follow up call next week, as well as complete SDOH assessment. Future transitionaloutreach scheduled (Any s/s of CHF exacerbation? Has he seen his PCP yet? How are his legs looking?Any s/s of cellulitis?). documented in this [facility]07-31-2025 History of Present illness Narrative* Jany Bonilla RN - 02/17/2025 1:44 PM EDT 02/17/25 1332 Transitions Post-Discharge Call - Initial Reviewed patients discharge instructions? Yes (AVS from hospital discharge reviewed.) Was patient able to picker / packer new prescriptions? Yes Medication reconciliation complete? Partially Reviewed (Confirmed that patient picked up his Augmentin and completed the full course. He declined to review a complete med rec at this time, as it was just updated.) Does patient have any questions about medications? No Verified that new DME was delivered? N/A - No DME Ordered (Patient reports that he uses a cane when going out and a walker in the house. He notes that he also has home O2 for nightly use if needed, but he has not needed to use it since discharge home.) Was HHC ordered? Yes If yes, which agency? [facility] Was HHC initiated if ordered? Yes (Patient reports that MIRI MOORE was out this morning and SN is supposed to call him tonight to schedule.) Does patient have all necessary follow up appointments scheduled? Plans to schedule (Patient missed his cardiology follow up visit this morning. Encouraged him to reschedule JESSI and offered to provide the contact number for cardiology. He notes that he already has cardiology's phone #. Encouraged him to schedule with his PCP as well.) List upcoming appointments: 05/04 Device Check Does patient have transportation to and from appointments? Yes (Patient reports that he normally drives himself, but will have some take him right now d/t his legs.) Does the patient have any questions/concerns at this time? 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 To Be Determined At Next Outreach (No SW/CHW needs identified at this time.) Are you able to complete routine daily activities? Yes Any ED, urgent care, or admissions since D/C? No (None since discharge on 02/15.) Call to patient for transitional outreach. Spoke with patient and his daughter, , on speaker phone. He reports that he is doing okay and getting around as usual. He notes that he lives alone, but his ex- and 2 daughters check in on him. He notes that MIRI MOORE was out to see him this morning; therefore, he did not attend his cardiology follow up visit that was scheduled for 9:00 this morning. Encouraged him to reschedule with cardiology as soon as possible. He notes that he will call them to reschedule either later today or tomorrow and confirmed that he has their phone number. Encouraged him to schedule a follow up visit with his PCP as well. Noted that his PCP was listed incorrectly in Epic. PCP updated in [facility]. Patient reports that he sees Dr. Bourne. Encouraged him to contact Dr. Bourne immediately with any worsening redness, heat, and/or swelling to his BLE. He states understanding. He reports that he completed his course of Augmentin. He denies much swelling in his legs now. He reports that his legs are reddened and daughter notes that they are maybe a smidge warmer than his other skin, but not hot. Daughter reports that his legs are dry and shiny, like a sunburn. She denies any open wounds on his legs or drainage. Encouraged them to keep a close eye on his legs and to contact his PCP immediately with any worsening/spreading redness, heat, or other concerns. They state understanding. Reviewed s/s of CHF exacerbation to monitor for (weight gain of 2-3+ lbs overnight and/or 5+ lbs jaron week, increased swelling, increased SOB), the importance of monitoring his daily weights, and theimportance of contacting cardiology immediately with any symptoms. He notes that he usually weighs h imself, but forgot this morning. He notes that his weight has been consistent and is fluctuating within 2-3 lbs. He reports that his breathing has been pretty good. He has home O2 for bedtime if needed, though he has not needed to use it since discharge home. Patient denies any other questions, concerns, or needs at this time. He is agreeable to further transitional follow up next week. Future transitional outreach scheduled (Did he see/schedule with cardiology/PCP?). documented in this [facility]07-29-2025 NoteStart PACC Note Home Health Referral Educated patient and son on Home Care and services available. Patient offered choice of available HHC and agreeable to SN, PT services with [facility]. Care Types: None Isolation Precautions: No active isolations Social Determinates of Health: Tobacco Use: Medium Risk (02/11/2025) Patient History Smoking Tobacco Use: Former Smokeless Tobacco Use: Never Passive Exposure: Past Social History Substance and Sexual Activity Alcohol Use Yes Comment: occasionally Social History Substance and Sexual Activity Drug Use No Comment: caffeine:1-2 cups of coffee a day Does the patient have any financial resource strain? No Does the patient have any food insecurities? No Does the patient have any housing instabilities? No If any of the above is noted as yes - consider a MATERIAL SPREADER evaluation once the patient returns home. START PATIENT REGISTRATION INFORMATION Order Information Order Signing Physician: Lisa Muniz, DO Service Ordered RN ?: Yes Service Ordered PT ?: Yes Service Ordered OT ?: No Service Ordered ST ?: No Service Ordered MATERIAL SPREADER?:No Service Ordered RATE SUPERVISOR?: No Following Physician: Dr Rigoberto Durand Following Physician Overseeing Physician: Dr Rigoberto Durand (Required for Residents only) Agreeable to Follow? Yes Date/Time of Call 02/15/25 4:05 PM, Spoke with: GONZALO Care Coordination Same Day SOC?: No Primary Care Physician: Dr Rigoberto Durand Primary Care Physician Primary Care Physician Address: [address] [place] [id number] Visit Instructions: N/A Service Discharge Location Type: Home with Home Care Service Facility Name: N/A Service Floor Facility: N/A Service Room No: N/A Demographics Patient Last Name: Azam Patient First Name: Megan Language/Communication Barrier: NA Service Address: [address] [place] [address] Service City: [facility] [place] ST: [place] Service ZIP: [address] [facility] (home) Other phone numbers: Telephone Information: Emergency Contact: Extended Emergency Contact Information Primary Emergency Contact: AzamZuleyka Mobile Relation: Meter/Relay Craftsman Secondary Emergency Contact: Negrito Nascimentosa Relation: Child Admission Information Admit Date: 02/10/2025 Patient status at discharge: Observation Admitting Diagnosis: Cellulitis [L03.90] Cellulitis of lower extremity, unspecified laterality [L03.119] Caregiver Information Caregiver First Name: Zuleyka Caregiver Last Name: Azam Caregiver Relationship to Patient CG Caregiver Caregiver Notes: N/A [employer] List No END PATIENT REGISTRATION INFORMATION Pt Home Health goal home COVID Status 1. Do you have any upper respiratory symptoms (cough, SOB, Fever)? No 2. Have you been exposed to anyone with COVID-19 Virus? No Answer only if pending or positive for COVID-19? 1. Agreeable to wear PPE at each visit? NA 2. Is the hospital supplying them with PPE upon Discharge? NA Start PACC Summary General Report/ Additional Comments GONZALO Discharge Date: 02/15/25 Referral Source-PACC: (Hospital/Unit): [facility] / [id number] B End PACC [facility]07-29-2025 Patient's home Note* Home Care - Maria Antonia Mcmullen RN - 02/15/2025 4:05 PM EDT Start PACC Note Home Health Referral Educated patient and son on Home Care and services available. Patient offered choice of available HHC and agreeable to SN, PT services with [facility]. Care Types: None Isolation Precautions: No active isolations Social Determinates of Health: Tobacco Use: Medium Risk (02/11/2025) Patient History Smoking Tobacco Use: Former Smokeless Tobacco Use: Never Passive Exposure: Past Social History Substance and Sexual Activity Alcohol Use Yes Comment: occasionally Social History Substance and Sexual Activity Drug Use No Comment: caffeine:1-2 cups of coffee a day Does the patient have any financial resource strain? No Does the patient have any food insecurities? No Does the patient have any housing instabilities? No If any of the above is noted as yes - consider a MATERIAL SPREADER evaluation once the patient returns home. START PATIENT REGISTRATION INFORMATION Order Information Order Signing Physician: Lisa Muniz, DO Service Ordered RN ?: Yes Service Ordered PT ?: Yes Service Ordered OT ?: No Service Ordered ST ?: No Service Ordered MATERIAL SPREADER?:No Service Ordered RATE SUPERVISOR?: No Following Physician: Dr Rigoberto Durand Following Physician Overseeing Physician: Dr Rigoberto Durand (Required for Residents only) Agreeable to Follow? Yes Date/Time of Call 02/15/25 4:05 PM, Spoke with: GONZALO Care Coordination Same Day SOC?: No Primary Care Physician: Dr Rigoberto Durand Primary Care Physician Primary Care Physician Address: [address] [place], [place] [id number] Visit Instructions: N/A Service Discharge Location Type: Home with Home Care Service Facility Name: N/A Service Floor Facility: N/A Service Room No: N/A Demographics Patient Last Name: Azam Patient First Name: Megan Language/Communication Barrier: RON Service Address: [address] Service City: [facility] [place] ST: [place] Service ZIP: [address] Service (home) Other phone numbers: Telephone Information: Emergency Contact: Extended Emergency Contact Information Primary Emergency Contact: Zuleyka Nascimento Mobile Relation: Meter/Relay Craftsman Secondary Emergency Contact: Shaylee Nascimento Relation: Child Admission Information Admit Date: 02/10/2025 Patient status at discharge: Observation Admitting Diagnosis: Cellulitis [L03.90] Cellulitis of lower extremity, unspecified laterality [L03.119] Caregiver Information Caregiver First Name: Zuleyka Caregiver Last Name: Azam Caregiver Relationship to Patient CG Caregiver Caregiver Notes: N/A [employer] List No END PATIENT REGISTRATION INFORMATION Pt Home Health goal home COVID Status 1. Do you have any upper respiratory symptoms (cough, SOB, Fever)? No 2. Have you been exposed to anyone with COVID-19 Virus? No Answer only if pending or positive for COVID-19? 1. Agreeable to wear PPE at each visit? NA 2. Is the hospital supplying them with PPE upon Discharge? NA Start PACC Summary General Report/ Additional Comments GONZALO Discharge Date: 02/15/25 Referral Source-PACC: (Hospital/Unit): [facility] / [id number] B [id number]* Home Care - Maria Antonia Mcmullen RN - 02/15/2025 4:05 PM EDT Start PACC Note Home Health Referral Educated patient and son on Home Care and services available. Patient offered choice of available HHC and agreeable to SN[facility] [facility] Care Types: None Isolation Precautions: No active isolations Social Determinates of Health: Tobacco Use: Medium Risk (02/11/2025) Patient History Smoking Tobacco Use: Former Smokeless Tobacco Use: Never Passive Exposure: Past Social History Substance and Sexual Activity Alcohol Use Yes Comment: occasionally Social History Substance and Sexual Activity Drug Use No Comment: caffeine:1-2 cups of coffee a day Does the patient have any financial resource strain? No Does the patient have any food insecurities? No Does the patient have any housing instabilities? No If any of the above is noted as yes - consider a MATERIAL SPREADER evaluation once the patient returns home. START PATIENT REGISTRATION INFORMATION Order Information Order Signing Physician: Lisa Muniz, DO Service Ordered RN ?: Yes Service Ordered PT ?: Yes Service Ordered OT ?: No Service Ordered ST ?: No Service Ordered MATERIAL SPREADER?:No Service Ordered RATE SUPERVISOR?: No Following Physician: Dr Rigoberto Durand Following Physician Overseeing Physician: Dr Rigoberto Durand (Required for Residents only) Agreeable to Follow? Yes Date/Time of Call 02/15/25 4:05 PM, Spoke with: GONZALO Care Coordination Same Day SOC?: No Primary Care Physician: Dr Rigoberto Durand Primary Care Physician Primary Care Physician Address: [address] [place] [id number] Visit Instructions: N/A Service Discharge Location Type: Home with Home Care Service Facility Name: N/A Service Floor Facility: N/A Service Room No: N/A Demographics Patient Last Name: Azam Patient First Name: Megan Language/Communication Barrier: NA Service Address: [address] [place] [address] Apt Service City: [facility] [place] ST: [place] Service ZIP: [address] Service (home) Other phone numbers: Telephone Information: Emergency Contact: Extended Emergency Contact Information Primary Emergency Contact: AzamZuleyka Mobile Relation: Meter/Relay Craftsman Secondary Emergency Contact: AzamShaylee Relation: Child Admission Information Admit Date: 02/10/2025 Patient status at discharge: Observation Admitting Diagnosis: Cellulitis [L03.90] Cellulitis of lower extremity, unspecified laterality [L03.119] Caregiver Information Caregiver First Name: Zuleyka Caregiver Last Name: Azam Caregiver Relationship to Patient CG Caregiver Caregiver Notes: N/A [employer] List No END PATIENT REGISTRATION INFORMATION Pt Home Health goal home COVID Status 1. Do you have any upper respiratory symptoms (cough, SOB, Fever)? No 2. Have you been exposed to anyone with COVID-19 Virus? No Answer only if pending or positive for COVID-19? 1. Agreeable to wear PPE at each visit? NA 2. Is the hospital supplying them with PPE upon Discharge? NA Start PACC Summary General Report/ Additional Comments GONZALO Discharge Date: 02/15/25 Referral Source-PACC: (Hospital/Unit): [facility] / [id number]/B4-454 B End PACC Note * Care Coordination - NATALYA Petersen - 02/14/2025 4:08 PM EDT SRIRAM met with pt at [facility] to complete the 30 day Readmission questionnaire. SW asked for pt's consent and pt agreed. Pt was cooperative and answered all questions. SRIRAM will email questionnaire at the end of the week to [email or web address] Trove * Care Coordination - Jewels Ortiz RN - 02/14/2025 2:16 PM EDT Care Management Progress Note Short Medical why still here: Patient remains on 4S today for BLE cellulitis. IV ATBX coverage continued. Complaints of continued lower extremity pain/erythema. Pain control prn. CHF, diuresis continued po. ID following. Monitoring labs/lytes. VSS, on RA. Planned Discharge Disposition: Home Health Services, active with [facility] through 04/04. Barriers/Today we still Wait: Clinical stability, Seismology Teacher recommendations (ID), Symptomatic control Length of Stay (Days): 4 GMLOS: 3.1 * Care Coordination - Jewels Ortiz RN - 02/11/2025 2:51 PM EDT Care Management Progress Note Short Medical why still here: Patient remains on 4S today for BLE cellulitis, IV ATBX through the weekend. CHF, diuresis continued. ID consulted and seen. Wound following. Monitoring labs/lytes. No indications for therapy at this time. Planned Discharge Disposition: From home, possible need for therapy to eval. [facility] to follow. Barriers/Today we still Wait: IV ATBX, ID final recs. Clinical stability. Length of Stay (Days): 1 GMLOS: No GMLOS Documented * Home Care - Maria Antonia Mcmullen RN - 02/11/2025 8:39 AM EDT Patient is currently active with [facility]. The patients current certification period will on 04/04/2025. The patient is currently receiving SN, PT services through the agency. [employer] to continue to follow. documented in this [facility]07-29-2025 Nurse Note* Micah Devries RN - 02/15/2025 3:25 PM EDT Pt ok to discharge home per , vs wnl. Pt understood discharge instructions. Son to transport pt home. IV removed prior to pt leaving hospital. Pt received meds to bed. [id number]* Micah Devries RN - 02/15/2025 3:25 PM EDT Pt ok to discharge home per MD, vs wnl. Pt understood discharge instructions. Son to transport pt home. IV removed prior to pt leaving hospital. Pt received meds to bed. * Lavonne Grace RN - 02/14/2025 8:45 AM EDT Wound Care consulted for Pressure Injury Prevention. Pt's Simon score= 18 on 02/14 Pt's pressure points assessed. Pt turned independently in the bed for posterior assessment. Pt's Heels, Buttocks/coccyx, Back, Elbows, Occiput and ears all intact. [place] and blanchable tissues noted to coccyx. Instructed pt on pressure injury prevention and importance of turning/postioning every 2hrs while in bed and every 15 min while sitting in chair. Verbalized understanding. Prevention Measures in place, including: Pillows/wedges, Heels elevated off bed on pillows, Sacral foam (in place, intact), Zinc/Moisture Barrier ointment, Waffle chair cushion (obtain for pt once getting out of bed to chair). Skin Care precaution order set in place. Dietitian consult in place. PT consult N/A, activity/mobility subscores of 3. D/W nursing staff. Will continue to follow pt. Please secure chat for any questions or concerns. Lavonne Grace RN * Carmen Kraft RN - 02/11/2025 7:45 PM EDT ROLO wrap applied to both feet. documented in this [facility]07-29-2025 NoteHospitalist Discharge Summary Megan Nascimento : 1940 Admit date: 02/10/2025 Discharge date: 02/15/2025 Admitting Physician: Lisa Muniz DO Primary Care Physician: Gibson Roth (Inactive) Visit Status: admission. Code Status: Full Code Discharge Diagnoses: Acute BL LE cellulitis Bilateral LE edema and redness CKD Stage 3 HFrEF, chronic, no acute exacerbation IDDM type 2 HTN HLD Follicular non-hodgkin's lymphoma Hypothyroidism Bladder cancer GERD BPH Anxiety and depression Hospital Course: recent admission for acute CHF exacerbation. Had worsening redness in BL LE at home, treated with IV abx per ID recommendations on consult. Swelling and redness improved, patient euvolemic, resumed on home cardiac medications. Cr near baseline during hospital course. Negative for DVT on BL LE doppler. Gradual improvement. He is to follow up with PCP and primary cardiology outpatient in 1-2 weeks. He is discharged to home in improved and stable condition on 02/15/25. Consults: IP CONSULT TO INFECTIOUS DISEASES IP CONSULT TO WOUND PREVENTION Discharge Instructions: Diet: Adult diet Regular; No Added Salt (3-4 gm); 5 carb choices (75 gm/meal) Activity: as tolerated Recommended Outpatient Tests: Disposition: Patient discharged in stable condition to home. LABS: CBC: Recent Labs 02/13/25 0531 02/14/250 02/15/25 0018 WBC 4.4 4.5 4.0 RBC 5.52 5.36 5.29 HGB 15.6 15.3 15.2 HCT 48.4 46.2 45.9 MCV 87.7 86.2 86.8 RDW 19.2* 19.2* 19.1* PLT 224 209 205 BMP: Recent Labs 02/13/25 0531 02/14/25 0220 02/15/25 0018 NA 142 141 141 K 3.8 3.5 3.5 CL 107 107 107 CO2 21* 21* 22* BUN 21 22 24* CREATININE 1.85* 1.77* 1.94* GLUCOSE 84 96 101 CALCIUM 8.8 8.9 8.8 ANIONGAP 14* 13 12 LIVER PROFILE:No results for input(s): AST, ALT, BILITOT, ALKPHOS, PROT in the last 72 hours. No lab exists for component: LABALBU PT/INR: No results for input(s): PROTIME, INR in the last 72 hours. CARDIAC ENZYMES: No results for input(s): TROPONINI in the last 72 hours. Procalcitonin: No results found for: PROCAL COVID-19 PCR: No results for input(s): COVID19 in the last 72 hours. Vitals: BP 137/76 (BP Location: Left arm, Patient Position: Lying) Pulse 83 Temp (!) 35.7 ?C (96.3 ?F) (Temporal) Resp 18 Ht 5' 7 (1.702 m) Wt 182 lb (82.6 kg) SpO2 97% BMI 28.51 kg/m? Pulse Ox: SpO2 Av % Min: 93 % Max: 97 % Supplemental O2: General appearance: No apparent distress, appears stated age and cooperative with exam, elderly male in NAD Respiratory: CTA BL Cardiovascular: Regular rate and rhythm with no murmur Abdomen: Soft, non-tender, non-distended Skin: BL LE edema 1+ with Redness improving. Distal pulses intact in BL LE. Neurologic: grossly non-focal. Discharge Medications: Medication List START taking these medications amoxicillin-clavulanate 875-125 MG tablet Commonly known as: Augmentin Take 1 tablet by mouth 2 times daily for 1 day. CONTINUE taking these medications cholecalciferol 25 MCG (1000 UT) capsule Commonly known as: Vitamin D-3 cyanocobalamin 1000 MCG tablet Commonly known as: Vitamin B-12 Entresto 24-26 MG tablet Generic drug: sacubitril-valsartan Take 1 tablet by mouth in the morning and 1 tablet before bedtime. ferrous sulfate 325 (65 Fe) MG tablet gabapentin 100 MG capsule Commonly known as: Neurontin glimepiride 1 MG tablet Commonly known as: Amaryl levothyroxine 25 MCG tablet Commonly known as: Synthroid, Levoxyl metoprolol succinate XL 100 MG 24 hr tablet Commonly known as: Toprol-XL multivitamin tablet pantoprazole 40 MG EC tablet Commonly known as: ProtoNix rosuvastatin 20 MG tablet Commonly known as: Crestor sertraline 25 MG tablet Commonly known as: Zoloft sucralfate 1 g tablet Commonly known as: Carafate tamsulosin 0.4 MG 24 hr capsule Commonly known as: Flomax Take 1 capsule (0.4 mg) by mouth daily. torsemide 20 MG tablet Commonly known as: Demadex Take 2 tablets (40 mg) by mouth daily. Do not start before February 02, 2025. Where to Get Your Medications These medications were sent to [facility] [address] [facility] [place] [address] Hours: Friday to Friday 10 am to 6 pm amoxicillin-clavulanate 875-125 MG tablet Recommended Follow-up: PCP outpatient in 1-2 weeks. @[email or web address]@ Complexity of Follow up: [] Moderate Complexity: follow up within 7-14 calendar days (76800) [x] Severe Complexity: follow up within 7 calendar days (26093) Follow up Testing, Pending results or Referrals at Transitional Care Visit: [x] yes [] no Instructions to MA: Please call patient on day after discharge (must document patient contacted within 2 business days of discharge). Follow up questions for MA: 1. Did you get medications filled and taking them as instructed from discharge? 2. Are you following your d (more content not included)...[facility]07-29-2025 Hospital course Narrative* Lisa Muniz DO - 02/15/2025 2:51 PM EDT Hospitalist Discharge Summary Megan Nascimento : 1940 Admit date: 02/10/2025 Discharge date: 02/15/2025 Admitting Physician: Lisa Muniz DO Primary Care Physician: Gibson Roth (Inactive) Visit Status: admission. Code Status: Full Code Discharge Diagnoses: Acute BL LE cellulitis Bilateral LE edema and redness CKD Stage 3 HFrEF, chronic, no acute exacerbation IDDM type 2 HTN HLD Follicular non-hodgkin's lymphoma Hypothyroidism Bladder cancer GERD BPH Anxiety and depression Hospital Course: recent admission for acute CHF exacerbation. Had worsening redness in BL LE at home, treated with IV abx per ID recommendations on consult. Swelling and redness improved, patient euvolemic, resumed on home cardiac medications. Cr near baseline during hospital course. Negative for DVT on BL LE doppler. Gradual improvement. He is to follow up with PCP and primary cardiology outpatient in 1-2 weeks. He is discharged to home in improved and stable condition on 02/15/25. Consults: IP CONSULT TO INFECTIOUS DISEASES IP CONSULT TO WOUND PREVENTION Discharge Instructions: Diet: Adult diet Regular; No Added Salt (3-4 gm); 5 carb choices (75 gm/meal) Activity: as tolerated Recommended Outpatient Tests: Disposition: Patient discharged in stable condition to home. LABS: CBC: Recent Labs 02/13/25 0531 02/14/2521902/15/25 0018 WBC 4.4 4.5 4.0 RBC 5.52 5.36 5.29 HGB 15.6 15.3 15.2 HCT 48.4 46.2 45.9 MCV 87.7 86.2 86.8 RDW 19.2* 19.2* 19.1* PLT 224 209 205 BMP: Recent Labs 02/13/2553002/14/2521902/15/2517 NA 142 141 141 K 3.8 3.5 3.5 CL 107 107 107 CO2 21* 21* 22* BUN 21 22 24* CREATININE 1.85* 1.77* 1.94* GLUCOSE 84 96 101 CALCIUM 8.8 8.9 8.8 ANIONGAP 14* 13 12 LIVER PROFILE:No results for input(s): AST, ALT, BILITOT, ALKPHOS, PROT in the last 72 hours. No lab exists for component: LABALBU PT/INR: No results for input(s): PROTIME, INR in the last 72 hours. CARDIAC ENZYMES: No results for input(s): TROPONINI in the last 72 hours. Procalcitonin: No results found for: PROCAL COVID-19 PCR: No results for input(s): COVID19 in the last 72 hours. Vitals: BP 137/76 (BP Location: Left arm, Patient Position: Lying) Pulse 83 Temp (!) 35.7 C (96.3 F) (Temporal) Resp 18 Ht 5' 7 (1.702 m) Wt 182 lb (82.6 kg) SpO2 97% BMI 28.51 kg/m Pulse Ox: SpO2 Av % Min: 93 % Max: 97 % Supplemental O2: General appearance: No apparent distress, appears stated age and cooperative with exam, elderly male in NAD Respiratory: CTA BL Cardiovascular: Regular rate and rhythm with no murmur Abdomen: Soft, non-tender, non-distended Skin: BL LE edema 1+ with Redness improving. Distal pulses intact in BL LE. Neurologic: grossly non-focal. Discharge Medications: Medication List START taking these medications amoxicillin-clavulanate 875-125 MG tablet Commonly known as: Augmentin Take 1 tablet by mouth 2 times daily for 1 day. CONTINUE taking these medications cholecalciferol 25 MCG (1000 UT) capsule Commonly known as: Vitamin D-3 cyanocobalamin 1000 MCG tablet Commonly known as: Vitamin B-12 Entresto 24-26 MG tablet Generic drug: sacubitril-valsartan Take 1 tablet by mouth in the morning and 1 tablet before bedtime. ferrous sulfate 325 (65 Fe) MG tablet gabapentin 100 MG capsule Commonly known as: Neurontin glimepiride 1 MG tablet Commonly known as: Amaryl levothyroxine 25 MCG tablet Commonly known as: Synthroid, Levoxyl metoprolol succinate XL 100 MG 24 hr tablet Commonly known as: Toprol-XL multivitamin tablet pantoprazole 40 MG EC tablet Commonly known as: ProtoNix rosuvastatin 20 MG tablet Commonly known as: Crestor sertraline 25 MG tablet Commonly known as: Zoloft sucralfate 1 g tablet Commonly known as: Carafate tamsulosin 0.4 MG 24 hr capsule Commonly known as: Flomax Take 1 capsule (0.4 mg) by mouth daily. torsemide 20 MG tablet Commonly known as: Demadex Take 2 tablets (40 mg) by mouth daily. Do not start before February 02, 2025. Where to Get Your Medications These medications were sent to [facility] [address] [place] [address] Hours: Friday to Friday 10 am to 6 pm amoxicillin-clavulanate 875-125 MG tablet Recommended Follow-up: PCP outpatient in 1-2 weeks. @[email or web address]@ Complexity of Follow up: [] Moderate Complexity: follow up within 7-14 calendar days (28054) [x] Severe Complexity: follow up within 7 calendar days (83488) Follow up Testing, Pending results or Referrals at Transitional Care Visit: [x] yes [] no Instructions to MA: Please call patient on day after discharge (must document patient contacted within 2 business days of discharge). Follow up questions for MA: 1. Did you get medications filled and taking them as instructed from discharge? 2. Are you following your discharge instructions from your hospital stay? 3. Please confirm patient is scheduled for a follow up appointment within the above time frame. Signed: Lisa Muniz DO Division of Hospitalist Medicine Inpatient Medical Services[place] 02/15/2025, 2:51 PM Total time Spent on Discharge: 32 minutes documented in this [facility]07-28-2025 Progress note* Care Coordination - NATALYA Petersen - 02/14/2025 4:08 PM EDT SRIRAM met with pt at [facility] to complete the 30 day Readmission questionnaire. SW asked for pt's consent and pt agreed. Pt was cooperative and answered all questions. SRIRAM will email questionnaire at the end of the week to [email or web address] [facility] CenterPgppmo11-19-3296 NoteCare Management Progress Note Short Medical why still here: Patient remains on 4S today for BLE cellulitis. IV ATBX coverage continued. Complaints of continued lower extremity pain/erythema. Pain control prn. CHF, diuresis continued po. ID following. Monitoring labs/lytes. VSS, on RA. Planned Discharge Disposition: Home Health Services, active with [facility] through 04/04. Barriers/Today we still Wait: Clinical stability, Seismology Teacher recommendations (ID), Symptomatic control Length of Stay (Days): 4 GMLOS: 3.1 [facility]07-28-2025 Progress note* Care Coordination - Jewels Ortiz RN - 02/14/2025 2:16 PM EDT Care Management Progress Note Short Medical why still here: Patient remains on 4S today for BLE cellulitis. IV ATBX coverage continued. Complaints of continued lower extremity pain/erythema. Pain control prn. CHF, diuresis continued po. ID following. Monitoring labs/lytes. VSS, on RA. Planned Discharge Disposition: Home Health Services, active with [facility] through 04/04. Barriers/Today we still Wait: Clinical stability, Seismology Teacher recommendations (ID), Symptomatic control Length of Stay (Days): 4 GMLOS: 3.1 [facility] [id number] [facility] - Infectious Diseases Attending Progress Note Subjective: Alina cute events-a febrile and feels much improved, able to ambulat now and noted redness and pin >50 % better too. Mild diarrhea now. Objective: Vitals: Patient Vitals for the past 24 hrs: BP Temp Temp src Pulse Resp SpO2 02/14/25725 144/83 36.5 ?C (97.7 ?F) Temporal 82 18 98 % 02/13/252036 133/85 36 ?C (96.8 ?F) Temporal 85 18 97 % Physical Exam Vitals reviewed. Constitutional: General: He is not in acute distress. Appearance: Normal appearance. He is not ill-appearing or toxic-appearing. Pulmonary: Effort: Pulmonary effort is normal. Musculoskeletal: General: No tenderness. Right lower leg: Edema present. Left lower leg: Edema present. Skin: Findings: Erythema (less than demarcation, restricted to pretibia now, <50% distribution) present. Neurological: Mental Status: He is oriented to person, place, and time. Psychiatric: Thought Content: Thought content normal. Labs: Lab Results Component Value Date/Time NA 141 02/14/2025219 K 3.5 02/14/2025219 CL 107 02/14/2025 022 CO2 21 (L) 02/14/2025 022 CO2 25 01/09/2024 1206 BUN 22 02/14/2025 022 BUN 51 (H) 01/09/2024 1206 CREATININE 1.77 (H) 02/14/2025219 CREATININE 2.34 (H) 01/09/2024 1206 GLUCOSE 96 02/14/2025 0220 GLUCOSE 137 (H) 01/09/2024 1206 CALCIUM 8.9 02/14/2025 0220 CALCIUM 9.5 01/09/2024 1206 PROT 6.6 02/10/2025 0224 BILITOT 1.8 (H) 02/10/2025 022 ALKPHOS 94 02/10/2025 0224 AST 39 (H) 02/10/2025223 ALT 10 02/10/2025 022 PROCAL 0.08 (H) 02/12/2025 0519 Lab Results Component Value Date/Time WBC 4.5 02/14/2025 022 WBC 9.4 01/09/2024 1206 HGB 15.3 02/14/2025 0220 HGB 12.6 (L) 01/09/2024 1206 HCT 46.2 02/14/2025 0220 HCT 38.0 (L) 01/09/2024 1206 PLT 209 02/14/2025 0220 GRANULOCYTES 57.5 05/21/2021 0523 LYMPHOPCT 20.6 01/29/2025 0606 MONOPCT 8.0 01/29/2025 0606 LABEOS 11.8 (H) 05/21/2021 0523 BASOPCT 1.5 01/29/2025 0606 NEUTROABS 3.2 01/29/2025 0606 PCT 0.08 Micro: reviewed Lines: PIV Radiography/Echo/Other: Reviewed US LE neg for DVT Antimicrobials, Start/End Dates: Vancomycin x1 Cefepime02/09 Impression: 84 M with multiple comorbidities, admitted with bilateral leg edema and erythema, acute on chronic: Presumed cellulitis- but not impressed, on elevation, some blanching happens, and no calor. More like dependent rubor. Recent CHF exacerbation- seems improved form 2 weeks ago. Overall nontoxic. Plan: Reasonable to complete course on 02/16. IF DC tomorrow, can empirically switch to amox-clav bid. Compression hose. Podiatry in outpt for nail care.[facility]07-28-2025 History of Present illness Narrative* Mannie Samuel MD - 02/14/2025 11:14 AM EDT [facility] - Infectious Diseases Attending Progress Note Subjective: Alina cute events-a febrile and feels much improved, able to ambulat now and noted redness and pin >50 % better too. Mild diarrhea now. Objective: Vitals: Patient Vitals for the past 24 hrs: BP Temp Temp src Pulse Resp SpO2 02/14/25725 144/83 36.5 C (97.7 F) Temporal 82 18 98 % 02/13/252036 133/85 36 C (96.8 F) Temporal 85 18 97 % Physical Exam Vitals reviewed. Constitutional: General: He is not in acute distress. Appearance: Normal appearance. He is not ill-appearing or toxic-appearing. Pulmonary: Effort: Pulmonary effort is normal. Musculoskeletal: General: No tenderness. Right lower leg: Edema present. Left lower leg: Edema present. Skin: Findings: Erythema (less than demarcation, restricted to pretibia now, <50% distribution) present. Neurological: Mental Status: He is oriented to person, place, and time. Psychiatric: Thought Content: Thought content normal. Labs: Lab Results Component Value Date/Time NA 141 02/14/2025219 K 3.5 02/14/2025219 CL 107 02/14/2025219 CO2 21 (L) 02/14/2025 022 CO2 25 01/09/2024 1206 BUN 22 02/14/2025219 BUN 51 (H) 01/09/2024 1206 CREATININE 1.77 (H) 02/14/2025219 CREATININE 2.34 (H) 01/09/2024 1206 GLUCOSE 96 02/14/2025219 GLUCOSE 137 (H) 01/09/2024 1206 CALCIUM 8.9 02/14/2025219 CALCIUM 9.5 01/09/2024 1206 PROT 6.6 02/10/2025223 BILITOT 1.8 (H) 02/10/2025223 ALKPHOS 94 02/10/2025223 AST 39 (H) 02/10/2025223 ALT 10 02/10/2025223 PROCAL 0.08 (H) 02/12/2025 0519 Lab Results Component Value Date/Time WBC 4.5 02/14/2025 0220 WBC 9.4 01/09/2024 1206 HGB 15.3 02/14/2025 0220 HGB 12.6 (L) 01/09/2024 1206 HCT 46.2 02/14/2025 0220 HCT 38.0 (L) 01/09/2024 1206 PLT 209 02/14/2025 0220 GRANULOCYTES 57.5 05/21/2021 0523 LYMPHOPCT 20.6 01/29/2025 0606 MONOPCT 8.0 01/29/2025 0606 LABEOS 11.8 (H) 05/21/2021 0523 BASOPCT 1.5 01/29/2025 0606 NEUTROABS 3.2 01/29/2025 0606 PCT 0.08 Micro: reviewed Lines: PIV Radiography/Echo/Other: Reviewed US LE neg for DVT Antimicrobials, Start/End Dates: Vancomycin x1 Cefepime02/09 Impression: 84 M with multiple comorbidities, admitted with bilateral leg edema and erythema, acute on chronic: Presumed cellulitis- but not impressed, on elevation, some blanching happens, and no calor. More like dependent rubor. Recent CHF exacerbation- seems improved form 2 weeks ago. Overall nontoxic. Plan: Reasonable to complete course on 02/16. IF DC tomorrow, can empirically switch to amox-clav bid. Compression hose. Podiatry in outpt for nail care. * Melvin Mei MD - 02/14/2025 10:39 AM EDT Images from the original note were not included. Hospitalist Progress Note 02/14/[phone]: Please page me ([phone]) for patient care issues. [phone]: Please page IMS night Hospitalist for any issues. Subjective: Admit Date: 02/10/2025 PCP: Gibson Roth (Inactive) Room#: V0-155/U4-402 B Interval History: Patient is sitting on the bed, lower extremity pain improving. Denies any chest pain shortness of breath or palpitations. Adult diet Regular; No Added Salt (3-4 gm); 5 carb choices (75 gm/meal) @[id number]@ 24HR INTAKE/OUTPUT: Intake/Output Summary (Last 24 hours) at 02/14/2025 1039 Last data filed at 02/14/2025 0500 Gross per 24 hour Intake 480 ml Output 1100 ml Net -620 ml Past Medical History: Medical History[1] LABS: CBC: Recent Labs 02/12/2551802/13/25 0502/14/25 0220 WBC 3.7 4.4 4.5 RBC 5.16 5.52 5.36 HGB 15.1 15.6 15.3 HCT 44.7 48.4 46.2 MCV 86.6 87.7 86.2 RDW 18.5* 19.2* 19.2* PLT 205 224 209 BMP: Recent Labs 02/12/2551802/13/25 0502/14/25219 NA 141 142 141 K 2.8* 3.8 3.5 CL 106 107 107 CO2 21* 21* 21* BUN 22 21 22 CREATININE 1.73* 1.85* 1.77* GLUCOSE 82 84 96 CALCIUM 8.4* 8.8 8.9 ANIONGAP 14* 14* 13 LIVER PROFILE: No results for input(s): AST, ALT, BILITOT, ALKPHOS, PROT in the last 72 hours. No lab exists for component: LABALBU PT/INR: No results for input(s): PROTIME, INR in the last 72 hours. CARDIAC ENZYMES: No results for input(s): TROPONINI in the last 72 hours. Procalcitonin: Lab Results Component Value Date PROCAL 0.08 (H) 02/12/2025 COVID-19 PCR: No results for input(s): COVID19 in the last 72 hours. Objective: Vitals: BP 144/83 (BP Location: Left arm, Patient Position: Lying) Pulse 82 Temp 36.5 C (97.7 F) (Temporal) Resp 18 Ht 5' 7 (1.702 m) Wt 182 lb (82.6 kg) SpO2 98% BMI 28.51 kg/m Pulse Ox: SpO2 Av.5 % Min: 97 % Max: 98 % Supplemental O2: General appearance: No apparent distress, appears stated age and cooperative with exam HEENT: Normal cephalic, atraumatic without obvious deformity. Pupils equal, round, and reactive to light. Extra ocular muscles intact. Conjunctivae/corneas clear. Neck: Supple, with full range of motion. No jugular venous distention. Trachea midline. No lymphadenopathy. Respiratory: Normal respiratory effort. Clear to auscultation, bilaterally without Rales/Wheezes/Rhonchi. Cardiovascular: Regular rate and rhythm with normal S1/S2 without murmurs, rubs or gallops. Abdomen: Soft, non-tender, non-distended with normal bowel sounds. No rebound or guarding. Musculoskeletal: Medications: Continuous Meds[2] Scheduled Meds[3] Assessment Acute on chronic bilateral lower extremity cellulitis. Bilateral lower extremity edema, redness Acute on chronic kidney disease Chronic congestive heart failure with reduced ejection fraction-euvolemic History of: Recently discharged on 02/01 after treating for congestive heart failure exacerbation Insulin-dependent diabetes mellitus Hypertension Hyperlipidemia. 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 Hypothyroidism. Bladder cancer Gastroesophageal reflux disease BPH-on tamsulosin Anxiety/depression-on Zoloft. Plan: Significant redness and swelling noticed bilateral lower extremities concern for cellulitis Continue IV antibiotics with cefepime, infectious disease evaluated the patient recommended to continue antibiotics. Creatinine is close to baseline-continue to monitor. Patient looks euvolemic, resumed CHF medications, tolerating well. Bilateral lower extremity venous Dopplers-ruled out DVT Other home medications reviewed and resumed appropriately Follow-up CBC BMP ordered PT OT evaluation. DVT prophylaxis: Lovenox subcu daily. Disposition: Pending transition to oral antibiotics Pending ID clearance Possible discharge in next 2 to 3 days. -am labs, replace lytes prn -increase activity -DVT prophylaxis: [] Lovenox [] Heparin [] SCDs [x] Encourage ambulation [] Already on Anticoagulation Advance Directive: Full Code Discharge planning: GRADY Mei MD Division of Hospitalist Medicine Inpatient Medical Services/[facility]: [phone] [1] Past Medical History: Diagnosis Date Acute HFrEF (heart failure with reduced ejection fraction) ([facility]) 09/22/2020 Bladder cancer (HCC) CHF (congestive heart failure) ([facility]) Chronic HFrEF (heart failure with reduced ejection fraction) ([facility]) 09/21/2020 Chronic kidney disease DM (diabetes mellitus) (HCC) DM (diabetes mellitus) (HCC) DVT (deep venous thrombosis) (HCC) ED (erectile dysfunction) Follicular non-Hodgkin's lymphoma (HCC) GERD (gastroesophageal reflux disease) GERD (gastroesophageal reflux disease) HTN (hypertension) HTN (hypertension) Hyperlipidemia Left bundle branch block 09/11/2020 Non-ischemic cardiomyopathy (CMS/HCC) (HCC) Presence of cardiac resynchronization therapy defibrillator (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) 01/17/2022 PUD (peptic ulcer disease) Pulmonary embolism (HCC) Pulmonary fibrosis (HCC) Rosacea Stage 3b chronic kidney disease (HCC) 09/21/2020 Tachycardia [2] [3] B complex-vitamin C-folic acid, 1 capsule, Oral, Daily cefepime, 2,000 mg, IntraVENous, q12h cholecalciferol, 50 mcg, Oral, Daily cyanocobalamin, 1,000 mcg, Oral, Daily enoxaparin, 40 mg, SubCUTAneous, Daily ferrous sulfate, 325 mg, Oral, Daily with breakfast gabapentin, 100 mg, Oral, BID glipiZIDE, 2.5 mg, Oral, qAM AC insulin lispro, 0-12 Units, SubCUTAneous, TID WC And insulin lispro, 0-12 Units, SubCUTAneous, Nightly levothyroxine, 25 mcg, Oral, Daily metoprolol succinate XL, 100 mg, Oral, Daily pantoprazole, 40 mg, Oral, qAM AC rosuvastatin, 20 mg, Oral, Daily sacubitril-valsartan, 1 tablet, Oral, BID sertraline, 25 mg, Oral, Daily sucralfate, 1 g, Oral, BID AC tamsulosin, 0.4 mg, Oral, Daily torsemide, 40 mg, Oral, Daily * Melvin Mei MD - 02/13/2025 3:10 PM EDT Images from the original note were not included. Hospitalist Progress Note 02/13/[id number]: Please page me ([phone]) for patient care issues. [phone]: Please page [facility] night Hospitalist for any issues. Subjective: Admit Date: 02/10/2025 PCP: Gibson Roth (Inactive) Room#: B4-454/[id number] B Interval History: Patient is lying on the bed, complaining of pain in the lower extremities Denies any chest pain shortness of breath or palpitations No other significant overnight issues. Adult diet Regular; No Added Salt (3-4 gm); 5 carb choices (75 gm/meal) @[id number]@ 24HR INTAKE/OUTPUT: Intake/Output Summary (Last 24 hours) at 02/13/2025 1510 Last data filed at 02/12/2025 195 Gross per 24 hour Intake 240 ml Output 600 ml Net -360 ml Past Medical History: Medical History[1] LABS: CBC: Recent Labs 02/12/2551802/13/25 05 WBC 3.7 4.4 RBC 5.16 5.52 HGB 15.1 15.6 HCT 44.7 48.4 MCV 86.6 87.7 RDW 18.5* 19.2* PLT 205 224 BMP: Recent Labs 02/12/2551802/13/25 0531 NA 141 142 K 2.8* 3.8 CL 106 107 CO2 21* 21* BUN 22 21 CREATININE 1.73* 1.85* GLUCOSE 82 84 CALCIUM 8.4* 8.8 ANIONGAP 14* 14* LIVER PROFILE: No results for input(s): AST, ALT, BILITOT, ALKPHOS, PROT in the last 72 hours. No lab exists for component: LABALBU PT/INR: No results for input(s): PROTIME, INR in the last 72 hours. CARDIAC ENZYMES: No results for input(s): TROPONINI in the last 72 hours. Procalcitonin: Lab Results Component Value Date PROCAL 0.08 (H) 02/12/2025 COVID-19 PCR: No results for input(s): COVID19 in the last 72 hours. Objective: Vitals: BP 138/74 (BP Location: Left arm, Patient Position: Lying) Pulse 66 Temp (!) 35.7 C (96.3 F) (Temporal) Resp 18 Ht 5' 7 (1.702 m) Wt 182 lb (82.6 kg) SpO2 95% BMI 28.51 kg/m Pulse Ox: SpO2 Av % Min: 95 % Max: 97 % Supplemental O2: General appearance: No apparent distress, appears stated age and cooperative with exam HEENT: Normal cephalic, atraumatic without obvious deformity. Pupils equal, round, and reactive to light. Extra ocular muscles intact. Conjunctivae/corneas clear. Neck: Supple, with full range of motion. No jugular venous distention. Trachea midline. No lymphadenopathy. Respiratory: Normal respiratory effort. Clear to auscultation, bilaterally without Rales/Wheezes/Rhonchi. Cardiovascular: Regular rate and rhythm with normal S1/S2 without murmurs, rubs or gallops. Abdomen: Soft, non-tender, non-distended with normal bowel sounds. No rebound or guarding. Musculoskeletal: Medications: Continuous Meds[2] Scheduled Meds[3] Assessment Acute on chronic bilateral lower extremity cellulitis. Bilateral lower extremity edema, redness Acute on chronic kidney disease Chronic congestive heart failure with reduced ejection fraction-euvolemic History of: Recently discharged on 02/01 after treating for congestive heart failure exacerbation Insulin-dependent diabetes mellitus Hypertension Hyperlipidemia. 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 Hypothyroidism. Bladder cancer Gastroesophageal reflux disease BPH-on tamsulosin Anxiety/depression-on Zoloft. Plan: Significant redness and swelling noticed bilateral lower extremities concern for cellulitis Continue IV antibiotics with cefepime, infectious disease evaluated the patient recommended to continue antibiotics. Creatinine is close to baseline-continue to monitor. Patient looks euvolemic, resumed CHF medications, tolerating well. Bilateral lower extremity venous Dopplers-ruled out DVT Other home medications reviewed and resumed appropriately Follow-up CBC BMP ordered PT OT evaluation. DVT prophylaxis: Lovenox subcu daily. Disposition: Pending transition to oral antibiotics Pending ID clearance Possible discharge in next 2 to 3 days. -am labs, replace lytes prn -increase activity -DVT prophylaxis: [] Lovenox [] Heparin [] SCDs [x] Encourage ambulation [] Already on Anticoagulation Advance Directive: Full Code Discharge planning: TBD Melvin Mei MD Division of Hospitalist Medicine Inpatient Medical Services/[facility]: [phone] [1] Past Medical History: Diagnosis Date Acute HFrEF (heart failure with reduced ejection fraction) ([facility]) 09/22/2020 Bladder cancer (HCC) CHF (congestive heart failure) (HCC) Chronic HFrEF (heart failure with reduced ejection fraction) (HCC) 09/21/2020 Chronic kidney disease DM (diabetes mellitus) (HCC) DM (diabetes mellitus) (HCC) DVT (deep venous thrombosis) (HCC) ED (erectile dysfunction) Follicular non-Hodgkin's lymphoma (HCC) GERD (gastroesophageal reflux disease) GERD (gastroesophageal reflux disease) HTN (hypertension) HTN (hypertension) Hyperlipidemia Left bundle branch block 09/11/2020 Non-ischemic cardiomyopathy (CMS/HCC) (HCC) Presence of cardiac resynchronization therapy defibrillator (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) 01/17/2022 PUD (peptic ulcer disease) Pulmonary embolism (HCC) Pulmonary fibrosis (HCC) Rosacea Stage 3b chronic kidney disease (HCC) 09/21/2020 Tachycardia [2] [3] B complex-vitamin C-folic acid, 1 capsule, Oral, Daily cefepime, 2,000 mg, IntraVENous, q12h cholecalciferol, 50 mcg, Oral, Daily cyanocobalamin, 1,000 mcg, Oral, Daily enoxaparin, 40 mg, SubCUTAneous, Daily ferrous sulfate, 325 mg, Oral, Daily with breakfast gabapentin, 100 mg, Oral, BID glipiZIDE, 2.5 mg, Oral, qAM AC insulin lispro, 0-12 Units, SubCUTAneous, TID WC And insulin lispro, 0-12 Units, SubCUTAneous, Nightly levothyroxine, 25 mcg, Oral, Daily metoprolol succinate XL, 100 mg, Oral, Daily pantoprazole, 40 mg, Oral, qAM AC rosuvastatin, 20 mg, Oral, Daily sacubitril-valsartan, 1 tablet, Oral, BID sertraline, 25 mg, Oral, Daily sucralfate, 1 g, Oral, BID AC tamsulosin, 0.4 mg, Oral, Daily torsemide, 40 mg, Oral, Daily * Pari Morales RD - 02/12/2025 11:32 AM EDT Nutrition Assessment Type and Reason for Visit: Initial, Wound Nutrition Recommendations/Plan: Per MNT protocol, liberalized diet to: Regular; No Added Salt (3-4 gm); 5 carb choices (75 gm/meal)diet Please assist and encourage patient to participate in room service and order well balanced meals Please document all oral intake in EMR for most accurate nutrient intake assessment As able, please obtain weekly standing scale weights for most accurate anthropometric data and calculation of macronutrient and fluid needs RDN to continue to monitor weekly: fluid accumulation, weight, skin integrity, trends in lab values, tolerance of PO, clinical status, discharge planning. Malnutrition Assessment: Malnutrition Status: At risk for malnutrition (Comment) (monitro intake) Context: Chronic Illness Findings of the 6 clinical characteristics of malnutrition: Energy Intake: No significant decrease in energy intake (eats two meals daily at home) Weight Loss: Unable to assess (+CHF and fluid shifts) Body Fat Loss: Mild body fat loss (observed) Buccal region, Orbital Muscle Mass Loss: Unable to assess Fluid Accumulation: Severe Extremities Bag Builder Strength: Not Performed Nutrition Assessment: 84 year old man with PMHx: DMII, CKD stage IIIb, CHF(EF rate ~12% 01/30/25), DVT, bladder cancer, HTN, HLD, PUD. Recent admit 01/28-02/01/25 to [facility] with volume overload and CHF Exacerbation. 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 Treated with IV Lasix and transitioned to 40 mG Torsemide prior to discharge. On day of discharge with weight of 186.6#, and he was discharged home in improved condition. He currently presents to [facility] with worsening swelling, redness, and pain in bilaterallower extremities- presumed cellulitis. Noted weight of 182.4# on evening of 02/09/25. Significant labs on admit: Gap(17), Creatinine(1.94), AST(39), bilirubin(1.8),BNP(>48655). Negative venous duplex imaging. ID consulted and following with plans to transition form IV cefetpime to PO antibiotics. Pleasant and interactive, resting in bed at time of assessment with bed scale weight of 80.7 kg or177.9# obtained. Noted patient ate ~75% breakfast tray (observed by this RDN). Cites appetite is okay , +diarrhea and early satiety. 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 While he has used ONS in thepast- declined a this time due to loose stooling. Requested A brownie and milk, liberlized diet. Estimated Daily Nutrient Needs: Energy Requirements Based On: Kcal/kg Weight Used for Energy Requirements: [place] Weight for Energy Calculation (kg): 67 kg Total Energy Requirements (kcals/day): 7048-8327 (25-30 kcal/kg IBW) Weight Used for Protein Requirements: [place] Weight in Kg Used for Protein Requirements: 67 kg Estimated Total Protein (g/day): 67-101 (1.0-1.5 g protein/kg IBW) Estimated Daily Total Fluid (ml/day): per MD Nutrition Related Findings: -I/O balance. +3 BLE edema noted. Simon score=18 +cellulitis. Meds reviewed: +insulin, Synthroid. Nephrocaps, maxipime, D3 and B12. Labs: BGL(67->16->131->100->111), K+(2.8), creatinine(1.73), Gap(14). Wound Type: (BLE cellulitis) Current Nutrition Therapies: Adult diet Regular; No Added Salt (3-4 gm); 5 carb choices (75 gm/meal) Current Oral Intake Average Meal Intake: 51-75%, 76-100% Average Supplements Intake: None Ordered, Refusing to take Anthropometric Measures: Height: 170.2 cm (5' 7) Current Body Weight: 80.7 kg (177 lb 14.6 oz) Weight Source: Bed Scale Admission Body Weight: 82.7 kg (182 lb 6.4 oz) Usual Body Weight: 84.6 kg (186 lb 9.6 oz) (Per EMR--> 179# 01/09/24; 180# 09/22/24; 194.6# 01/26/25;186.6# 02/01/25) % Weight Change (Calculated): -4.7 [place] Body Weight (lbs) (Calculated): 148 lbs [place] Body Weight (Kg) (Calculated): 67 kg % [place] Body Weight (Calculated): 120.2 % BMI (kg/m2) (Calculated): 27.9 Weight Adjustment For: No Adjustment BMI Categories: Overweight (BMI 25.0-29.9) Nutrition Diagnosis: Altered nutrition-related lab values related to cardiac dysfunction as evidenced by localized or generalized fluid accumulation, lab values Nutrition Interventions: Nutrition Education/Counseling: Education not indicated Coordination of Nutrition Care: Continue to monitor while inpatient Plan of Care discussed with: patient and [employer] FORMER Goals: Previous Goal Met: Progressing toward Goal(s) Goals: PO intake 50% or greater Nutrition Monitoring and Evaluation: Behavioral-Environmental Outcomes: None Identified Food/Nutrient Intake Outcomes: Food and Nutrient Intake Physical Signs/Symptoms Outcomes: Biochemical Data, Chewing or Swallowing, Diarrhea, Nutrition Focused Physical Findings, Skin, Weight, Meal Time Behavior, Hemodynamic Status, Fluid Status or Edema Discharge Planning: Continue current diet Pari Morales RDN, LDN, Contact: *[phone] * Melvin Mei MD - 02/12/2025 10:20 AM EDT Images from the original note were not included. Hospitalist Progress Note 02/12/[id number]: Please page me ([phone]) for patient care issues. [phone]: Please page [facility] night Hospitalist for any issues. Subjective: Admit Date: 02/10/2025 PCP: Gibson Roth (Inactive) Room#: B4-467/B4-540 B Interval History: Patient is lying on the bed, complaining of pain in the lower extremities Denies any chest pain shortness of breath or palpitations No other significant overnight issues. Adult diet Regular; 4 carb choices (60 gm/meal); Low Fat/Low Chol/High Fiber/2 gm Na @[id number]@ 24HR INTAKE/OUTPUT: Intake/Output Summary (Last 24 hours) at 02/12/2025 1020 Last data filed at 02/11/2025 1747 Gross per 24 hour Intake -- Output 500 ml Net -500 ml Past Medical History: Medical History[1] LABS: CBC: Recent Labs 02/10/25 0224 02/12/25 0519 WBC 5.1 3.7 RBC 5.26 5.16 HGB 14.8 15.1 HCT 45.8 44.7 MCV 87.1 86.6 RDW 18.6* 18.5* PLT 198 205 BMP: Recent Labs 02/10/25 0224 02/12/25 0519 NA 141 141 K 3.9 2.8* CL 102 106 CO2 22* 21* BUN 23 22 CREATININE 1.94* 1.73* GLUCOSE 89 82 CALCIUM 8.7* 8.4* ANIONGAP 17* 14* LIVER PROFILE: Recent Labs 02/10/25 0224 AST 39* ALT 10 BILITOT 1.8* ALKPHOS 94 PROT 6.6 PT/INR: No results for input(s): PROTIME, INR in the last 72 hours. CARDIAC ENZYMES: No results for input(s): TROPONINI in the last 72 hours. Procalcitonin: Lab Results Component Value Date PROCAL 0.08 (H) 02/12/2025 COVID-19 PCR: No results for input(s): COVID19 in the last 72 hours. Objective: Vitals: BP 132/80 (BP Location: Left arm, Patient Position: Lying) Pulse 73 Temp (!) 35.8 C (96.5 F) (Temporal) Resp 17 Ht 5' 7 (1.702 m) Wt 182 lb (82.6 kg) SpO2 97% BMI 28.51 kg/m Pulse Ox: SpO2 Av.5 % Min: 94 % Max: 97 % Supplemental O2: General appearance: No apparent distress, appears stated age and cooperative with exam HEENT: Normal cephalic, atraumatic without obvious deformity. Pupils equal, round, and reactive to light. Extra ocular muscles intact. Conjunctivae/corneas clear. Neck: Supple, with full range of motion. No jugular venous distention. Trachea midline. No lymphadenopathy. Respiratory: Normal respiratory effort. Clear to auscultation, bilaterally without Rales/Wheezes/Rhonchi. Cardiovascular: Regular rate and rhythm with normal S1/S2 without murmurs, rubs or gallops. Abdomen: Soft, non-tender, non-distended with normal bowel sounds. No rebound or guarding. Musculoskeletal: Medications: Continuous Meds[2] Scheduled Meds[3] Assessment Acute on chronic bilateral lower extremity cellulitis. Bilateral lower extremity edema, redness Acute on chronic kidney disease Chronic congestive heart failure with reduced ejection fraction-euvolemic History of: Recently discharged on 02/01 after treating for congestive heart failure exacerbation Insulin-dependent diabetes mellitus Hypertension Hyperlipidemia. 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 Hypothyroidism. Bladder cancer Gastroesophageal reflux disease BPH-on tamsulosin Anxiety/depression-on Zoloft. Plan: Significant redness and swelling noticed bilateral lower extremities concern for cellulitis Continue IV antibiotics with cefepime, infectious disease evaluated the patient recommended to continue antibiotics. Creatinine is close to baseline-continue to monitor. Patient looks euvolemic, resumed CHF medications, tolerating well. Bilateral lower extremity venous Dopplers-ruled out DVT Other home medications reviewed and resumed appropriately Follow-up CBC BMP ordered PT OT evaluation. DVT prophylaxis: Lovenox subcu daily. Disposition: Pending transition to oral antibiotics Pending ID clearance Possible discharge in next 2 to 3 days. -am labs, replace lytes prn -increase activity -DVT prophylaxis: [] Lovenox [] Heparin [] SCDs [x] Encourage ambulation [] Already on Anticoagulation Advance Directive: Full Code Discharge planning: TBD Melvin Mei MD Division of Hospitalist Medicine Inpatient Medical Services/[facility]: [phone] [1] Past Medical History: Diagnosis Date Acute HFrEF (heart failure with reduced ejection fraction) ([facility]) 09/22/2020 Bladder cancer ([facility]) CHF (congestive heart failure) ([facility]) Chronic HFrEF (heart failure with reduced ejection fraction) ([facility]) 09/21/2020 Chronic kidney disease DM (diabetes mellitus) (HCC) DM (diabetes mellitus) (HCC) DVT (deep venous thrombosis) ([facility]) ED (erectile dysfunction) Follicular non-Hodgkin's lymphoma (HCC) GERD (gastroesophageal reflux disease) GERD (gastroesophageal reflux disease) HTN (hypertension) HTN (hypertension) Hyperlipidemia Left bundle branch block 09/11/2020 Non-ischemic cardiomyopathy (CMS/HCC) ([facility]) Presence of cardiac resynchronization therapy defibrillator (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) 01/17/2022 PUD (peptic ulcer disease) Pulmonary embolism (HCC) Pulmonary fibrosis ([facility]) Rosacea Stage 3b chronic kidney disease ([facility]) 09/21/2020 Tachycardia [2] [3] B complex-vitamin C-folic acid, 1 capsule, Oral, Daily cefepime, 2,000 mg, IntraVENous, q12h cholecalciferol, 50 mcg, Oral, Daily cyanocobalamin, 1,000 mcg, Oral, Daily enoxaparin, 40 mg, SubCUTAneous, Daily ferrous sulfate, 325 mg, Oral, Daily with breakfast gabapentin, 100 mg, Oral, BID glipiZIDE, 2.5 mg, Oral, qAM AC insulin lispro, 0-12 Units, SubCUTAneous, TID WC And insulin lispro, 0-12 Units, SubCUTAneous, Nightly levothyroxine, 25 mcg, Oral, Daily metoprolol succinate XL, 100 mg, Oral, Daily pantoprazole, 40 mg, Oral, qAM AC potassium chloride, 40 mEq, Oral, BID rosuvastatin, 20 mg, Oral, Daily sacubitril-valsartan, 1 tablet, Oral, BID sertraline, 25 mg, Oral, Daily sucralfate, 1 g, Oral, BID AC tamsulosin, 0.4 mg, Oral, Daily torsemide, 40 mg, Oral, Daily * Melvin Mei MD - 02/11/2025 5:28 PM EDT Images from the original note were not included. Hospitalist Progress Note 02/11/[id number]: Please page me ([phone]) for patient care issues. [phone]: Please page [facility] night Hospitalist for any issues. Subjective: Admit Date: 02/10/2025 PCP: Gibson Roth (Inactive) Room#: I4-011/[id number] B Interval History: Patient is lying on the bed, complaining of pain in the lower extremities Denies any chest pain shortness of breath or palpitations No other significant overnight issues. Adult diet Regular; 4 carb choices (60 gm/meal); Low Fat/Low Chol/High Fiber/2 gm Na @[id number]@ 24HR INTAKE/OUTPUT: Intake/Output Summary (Last 24 hours) at 02/11/2025 1729 Last data filed at 02/11/2025 0840 Gross per 24 hour Intake 240 ml Output 300 ml Net -60 ml Past Medical History: Medical History[1] LABS: CBC: Recent Labs 02/10/25223 WBC 5.1 RBC 5.26 HGB 14.8 HCT 45.8 MCV 87.1 RDW 18.6* PLT 198 BMP: Recent Labs 02/10/25223 NA 141 K 3.9 CL 102 CO2 22* BUN 23 CREATININE 1.94* GLUCOSE 89 CALCIUM 8.7* ANIONGAP 17* LIVER PROFILE: Recent Labs 02/10/25 0224 AST 39* ALT 10 BILITOT 1.8* ALKPHOS 94 PROT 6.6 PT/INR: No results for input(s): PROTIME, INR in the last 72 hours. CARDIAC ENZYMES: No results for input(s): TROPONINI in the last 72 hours. Procalcitonin: No results found for: PROCAL COVID-19 PCR: No results for input(s): COVID19 in the last 72 hours. Objective: Vitals: BP 138/69 (BP Location: Left arm, Patient Position: Lying) Pulse 69 Temp 36 C (96.8 F) (Temporal) Resp 16 Wt 182 lb (82.6 kg) SpO2 97% BMI 28.51 kg/m Pulse Ox: SpO2 Av.7 % Min: 96 % Max: 97 % Supplemental O2: General appearance: No apparent distress, appears stated age and cooperative with exam HEENT: Normal cephalic, atraumatic without obvious deformity. Pupils equal, round, and reactive to light. Extra ocular muscles intact. Conjunctivae/corneas clear. Neck: Supple, with full range of motion. No jugular venous distention. Trachea midline. No lymphadenopathy. Respiratory: Normal respiratory effort. Clear to auscultation, bilaterally without Rales/Wheezes/Rhonchi. Cardiovascular: Regular rate and rhythm with normal S1/S2 without murmurs, rubs or gallops. Abdomen: Soft, non-tender, non-distended with normal bowel sounds. No rebound or guarding. Musculoskeletal: Medications: Continuous Meds[2] Scheduled Meds[3] Assessment Acute on chronic bilateral lower extremity cellulitis. Bilateral lower extremity edema, redness Acute on chronic kidney disease Chronic congestive heart failure with reduced ejection fraction-euvolemic History of: Recently discharged on 02/01 after treating for congestive heart failure exacerbation Insulin-dependent diabetes mellitus Hypertension Hyperlipidemia. 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 Hypothyroidism. Bladder cancer Gastroesophageal reflux disease BPH-on tamsulosin Anxiety/depression-on Zoloft. Plan: Significant redness and swelling noticed bilateral lower extremities concern for cellulitis Continue IV antibiotics with cefepime, infectious disease evaluated the patient recommended to continue antibiotics. Creatinine is close to baseline-continue to monitor. Patient looks euvolemic, resumed CHF medications, tolerating well. Bilateral lower extremity venous Dopplers-ruled out DVT Other home medications reviewed and resumed appropriately Follow-up CBC BMP ordered PT OT evaluation. DVT prophylaxis: Lovenox subcu daily. Disposition: Pending transition to oral antibiotics Pending ID clearance Possible discharge in next 2 to 3 days. -am labs, replace lytes prn -increase activity -DVT prophylaxis: [] Lovenox [] Heparin [] SCDs [x] Encourage ambulation [] Already on Anticoagulation Advance Directive: Full Code Discharge planning: TBD Melvin Mei MD Division of Hospitalist Medicine Inpatient Medical Services/[facility]: [phone] [1] Past Medical History: Diagnosis Date Acute HFrEF (heart failure with reduced ejection fraction) (HCC) 09/22/2020 Bladder cancer (HCC) CHF (congestive heart failure) (HCC) Chronic HFrEF (heart failure with reduced ejection fraction) (HCC) 09/21/2020 Chronic kidney disease DM (diabetes mellitus) (HCC) DM (diabetes mellitus) (HCC) DVT (deep venous thrombosis) (HCC) ED (erectile dysfunction) Follicular non-Hodgkin's lymphoma (HCC) GERD (gastroesophageal reflux disease) GERD (gastroesophageal reflux disease) HTN (hypertension) HTN (hypertension) Hyperlipidemia Left bundle branch block 09/11/2020 Non-ischemic cardiomyopathy (CMS/HCC) (HCC) Presence of cardiac resynchronization therapy defibrillator (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) 01/17/2022 PUD (peptic ulcer disease) Pulmonary embolism (HCC) Pulmonary fibrosis (HCC) Rosacea Stage 3b chronic kidney disease (HCC) 09/21/2020 Tachycardia [2] [3] B complex-vitamin C-folic acid, 1 capsule, Oral, Daily cefepime, 2,000 mg, IntraVENous, q12h cholecalciferol, 50 mcg, Oral, Daily cyanocobalamin, 1,000 mcg, Oral, Daily enoxaparin, 40 mg, SubCUTAneous, Daily ferrous sulfate, 325 mg, Oral, Daily with breakfast gabapentin, 100 mg, Oral, BID glipiZIDE, 2.5 mg, Oral, qAM AC insulin lispro, 0-12 Units, SubCUTAneous, TID WC And insulin lispro, 0-12 Units, SubCUTAneous, Nightly levothyroxine, 25 mcg, Oral, Daily metoprolol succinate XL, 100 mg, Oral, Daily pantoprazole, 40 mg, Oral, qAM AC rosuvastatin, 20 mg, Oral, Daily sacubitril-valsartan, 1 tablet, Oral, BID sertraline, 25 mg, Oral, Daily sucralfate, 1 g, Oral, BID AC tamsulosin, 0.4 mg, Oral, Daily torsemide, 40 mg, Oral, Daily * Buzz Herrera RRT - 02/11/2025 12:58 PM EDT Patient states he quit smoking in 1999, no history of vaping or smokeless tobacco. Smoking cessation counseling no indicated. * Carolin Muniz MD - 02/11/2025 12:25 PM EDT Images from the original note were not included. [facility] - Infectious Diseases Attending Progress Note Patient seen and examined Chart reviewed Following for bilateral LE edema/redness, here for CHF exacerbation No fevers noted overnight Redness of bilateral LE slightly improved. Past Medical History: Medical History[1] Past Surgical History: Surgical History[2] Current Medications: Current Medications[3] Allergies: Allergies[4] Social History: Social History Socioeconomic History Marital status: Spouse name: Not on file Number of children: Not on file Years of education: Not on file Highest education level: Not on file Occupational History Not on file Tobacco Use Smoking status: Former Current packs/day: 0.00 Types: Cigarettes Quit date: 11/08/1999 Years since quittin.2 Smokeless tobacco: Never Substance and Sexual Activity Alcohol use: Yes Comment: occasionally Drug use: No Comment: caffeine:1-2 cups of coffee a day Sexual activity: Not on file Other Topics Concern Not on file Social History Narrative Not on file Social Drivers of Health Financial Resource Strain: Not on file Food Insecurity: Unknown (02/10/2025) Hunger Vital Sign Worried About Running Out of Food in the Last Year: Not on file Ran Out of Food in the Last Year: Never true Transportation Needs: No Transportation Needs (02/10/2025) PRAPARE - Transportation Lack of Transportation (Medical): No Lack of Transportation (Non-Medical): No Physical Activity: Not on file Stress: Not on file Social Connections: Not on file Intimate Partner Violence: Not At Risk (02/10/2025) Humiliation, Afraid, Rape, and Kick questionnaire Fear of Current or Ex-Partner: No Emotionally Abused: No Physically Abused: No Sexually Abused: No Housing Stability: Low Risk (02/10/2025) Housing Stability Vital Sign Unable to Pay for Housing in the Last Year: No Number of Times Moved in the Last Year: 0 Homeless in the Last Year: No Family History: Family History[5] Vitals: Patient Vitals for the past 24 hrs: BP Temp Temp src Pulse Resp SpO2 02/11/25 0818 138/69 36 C (96.8 F) Temporal 69 16 97 % 02/10/25 1935 136/79 36.3 C (97.3 F) Temporal 77 17 97 % 02/10/25 1739 140/81 36.2 C (97.2 F) Temporal 78 18 96 % 02/10/25 1542 (!) 141/81 -- -- 71 18 97 % Physical Exam: Physical Exam Patient lying in bed NAD, pleasant male EOMI, PERRLA CV - RRR + murmur noted Abdomen - soft positive BS, nontender nondistended Bilateral LE with rubra +/- superimposed cellulitis, bilateral edema noted as well. Labs: Recent Labs 02/10/25 0224 NA 141 K 3.9 CL 102 CO2 22* BUN 23 CREATININE 1.94* GLUCOSE 89 CALCIUM 8.7* PROT 6.6 BILITOT 1.8* ALKPHOS 94 AST 39* ALT 10 Recent Labs 02/10/25 0224 WBC 5.1 HGB 14.8 HCT 45.8 PLT 198 LA 2 Micro: None Lines: PIV Radiography/Echo/Other: reviewed No recent US to r/o DVT Antimicrobials,Start/End Dates: Cefepime IV Impression: 84 M with multiple comorbidities, admitted with bilateral leg edema and erythema, acute on chronic: Presumed cellulitis- but not impressed, on elevation, some blanching happens, and no calor. More like dependent rubor. Recent CHF exacerbation- seems improved form 2 weeks ago. Overall nontoxic. Plan: Ordered duplex ultrasound Recommend leg elevation and start using compression hose. Nailcare with podiatry. Continue IV cefepime thru weekend, needs aggressive leg elevation Total time of 35 minutes on this day of encounter spent on, but not limited to review of tests, medical records , complex history , counseling and education (patient, family member, caregiver), and ordering medications, tests, and procedures. [1] Past Medical History: Diagnosis Date Acute HFrEF (heart failure with reduced ejection fraction) ([facility]) 09/22/2020 Bladder cancer (HCC) CHF (congestive heart failure) (HCC) Chronic HFrEF (heart failure with reduced ejection fraction) ([facility]) 09/21/2020 Chronic kidney disease DM (diabetes mellitus) (HCC) DM (diabetes mellitus) (HCC) DVT (deep venous thrombosis) ([facility]) ED (erectile dysfunction) Follicular non-Hodgkin's lymphoma (HCC) GERD (gastroesophageal reflux disease) GERD (gastroesophageal reflux disease) HTN (hypertension) HTN (hypertension) Hyperlipidemia Left bundle branch block 09/11/2020 Non-ischemic cardiomyopathy (CMS/HCC) ([facility]) Presence of cardiac resynchronization therapy defibrillator (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) 01/17/2022 PUD (peptic ulcer disease) Pulmonary embolism ([facility]) Pulmonary fibrosis ([facility]) Rosacea Stage 3b chronic kidney disease ([facility]) 09/21/2020 Tachycardia [2] Past Surgical History: Procedure Laterality Date BONE MARROW BIOPSY CARDIAC PACEMAKER PLACEMENT COLONOSCOPY COLONOSCOPY COSMETIC SURGERY face lift, rhinoplasty EYE SURGERY cataract removal FACIAL COSMETIC SURGERY LYMPH NODE BIOPSY SEPTOPLASTY SKIN BIOPSY VENTRICULAR CARDIAC PACEMAKER INSERTION 09/11/2020 Bi-V ICD [3] Current Facility-Administered Medications Medication Dose Route Frequency Provider Last Rate Last Admin acetaminophen (Tylenol) tablet 650 mg 650 mg Oral q6h PRN Moises Adan MD Or acetaminophen (Tylenol) suppository 650 mg 650 mg Rectal q6h PRN Moises Adan MD B complex-vitamin C-folic acid (Nephrocaps) capsule 1 capsule 1 capsule Oral Daily Moises Adan MD 1 capsule at 02/11/25 0935 cefepime (Maxipime) 2,000 mg in sodium chloride 0.9 % 50 mL IVPB Mini-Bag Plus 2,000 mg [id number] Moises Adan MD Stopped at 02/11/25 0937 cholecalciferol (Vitamin D-3) tablet 50 mcg 50 mcg Oral Daily Moises Adan MD 50 mcg at 02/11/25934 cyanocobalamin (Vitamin B-12) tablet 1,000 mcg 1,000 mcg Oral Daily Moises Adan MD 1,000 mcg at 02/11/25933 dextrose 5 % infusion 100 mL/hr IntraVENous PRN Moises Adan MD dextrose 50 % solution 12.5 g 12.5 g IntraVENous PRN Moises Adan MD enoxaparin (Lovenox) syringe 40 mg 40 mg SubCUTAneous Daily Moises Adan MD 40 mg at 02/11/25934 ferrous sulfate tablet 325 mg 325 mg Oral Daily with breakfast Moises Adan MD 325 mg at 02/11/25933 gabapentin (Neurontin) capsule 100 mg 100 mg Oral BID Moises Adan MD 100 mg at 02/11/25934 glipiZIDE (Glucotrol) tablet 2.5 mg 2.5 mg Oral qAM AC Moises Adan MD 2.5 mg at 02/11/25 05 glucagon (human recombinant) injection 1 mg 1 mg IntraMUSCular PRN Moises Adan MD glucose oral gel 15 g 15 g Oral PRN Moises Adan MD Insulin Lispro (Humalog) injection 0-12 Units 0-12 Units SubCUTAneous TID WC Moises Adan MD And Insulin Lispro (Humalog) injection 0-12 Units 0-12 Units SubCUTAneous Nightly Moises Adan MD levothyroxine (Synthroid, Levoxyl) tablet 25 mcg 25 mcg Oral Daily Moises Adan MD 25 mcg at loperamide (Imodium) capsule 2 mg 2 mg Oral 4x daily PRN Melvin Mei MD 2 mg at 02/10/25 154 Melatonin disintegrating tablet 5 mg 5 mg Oral Nightly PRN Moises Adan MD 5 mg at 02/10/252103 metoprolol succinate XL (Toprol-XL) 24 hr tablet 100 mg 100 mg Oral Daily Moises Adan MD 100 mg at 02/11/25934 ondansetron ODT (Zofran-ODT) disintegrating tablet 4 mg 4 mg Oral q8h PRN Moises Adan MD Or ondansetron (Zofran) injection 4 mg 4 mg IntraVENous q6h PRN Moises Adan MD pantoprazole (ProtoNix) EC tablet 40 mg 40 mg Oral qAM AC Moises Adan MD 40 mg at 02/11/25 0522 rosuvastatin (Crestor) tablet 20 mg 20 mg Oral Daily Moises Adan MD 20 mg at 02/11/25 0935 sacubitril-valsartan (Entresto) 24-26 MG per tablet 1 tablet 1 tablet Oral BID Moises Adan MD 1 tablet at 02/11/25 0935 sertraline (Zoloft) tablet 25 mg 25 mg Oral Daily Moises Adan MD 25 mg at 02/11/25 0935 sucralfate (Carafate) tablet 1 g 1 g Oral BID AC Moises Adan MD 1 g at 02/11/25 0523 tamsulosin (Flomax) 24 hr capsule 0.4 mg 0.4 mg Oral Daily Moises Adan MD 0.4 mg at 02/11/25 0935 torsemide (Demadex) tablet 40 mg 40 mg Oral Daily Moises Adan MD 40 mg at 02/11/25 0935 [4] Allergies Allergen Reactions Atorvastatin Other reaction(s): Myalgia Latanoprost Other reaction(s): Blurring of visual image, Excessive tear production, Red eye Lovastatin Other reaction(s): Myalgia Other [5] Family History Problem Relation Name Age of Onset High Blood Pressure Father High Blood Pressure Mother documented in this [facility]07-28-2025 NoteHospitalist Progress Note 02/14/2025 [phone]: Please page nh ([phone]) for patient care issues. [phone]: Please page [facility] night Hospitalist for any issues. Subjective: Admit Date: 02/10/2025 PCP: Gibson Roth (Inactive) Room#: [id number] B Interval History: Patient is sitting on the bed, lower extremity pain improving. Denies any chest pain shortness of breath or palpitations. Adult diet Regular; No Added Salt (3-4 gm); 5 carb choices (75 gm/meal) @[id number]@ 24HR INTAKE/OUTPUT: Intake/Output Summary (Last 24 hours) at 02/14/2025 1039 Last data filed at 02/14/2025 0500 Gross per 24 hour Intake 480 ml Output 1100 ml Net -620 ml Past Medical History: Medical History[1] LABS: CBC: Recent Labs 02/12/25 0519 02/13/25 0531 02/14/25 0220 WBC 3.7 4.4 4.5 RBC 5.16 5.52 5.36 HGB 15.1 15.6 15.3 HCT 44.7 48.4 46.2 MCV 86.6 87.7 86.2 RDW 18.5* 19.2* 19.2* PLT 205 224 209 BMP: Recent Labs 02/12/25 0519 02/13/25 0531 02/14/25 0220 NA 141 142 141 K 2.8* 3.8 3.5 CL 106 107 107 CO2 21* 21* 21* BUN 22 21 22 CREATININE 1.73* 1.85* 1.77* GLUCOSE 82 84 96 CALCIUM 8.4* 8.8 8.9 ANIONGAP 14* 14* 13 LIVER PROFILE: No results for input(s): AST, ALT, BILITOT, ALKPHOS, PROT in the last 72 hours. No lab exists for component: LABALBU PT/INR: No results for input(s): PROTIME, INR in the last 72 hours. CARDIAC ENZYMES: No results for input(s): TROPONINI in the last 72 hours. Procalcitonin: Lab Results Component Value Date PROCAL 0.08 (H) 02/12/2025 COVID-19 PCR: No results for input(s): COVID19 in the last 72 hours. Objective: Vitals: BP 144/83 (BP Location: Left arm, Patient Position: Lying) Pulse 82 Temp 36.5 ?C (97.7 ?F) (Temporal) Resp 18 Ht 5' 7 (1.702 m) Wt 182 lb (82.6 kg) SpO2 98% BMI 28.51 kg/m? Pulse Ox: SpO2 Av.5 % Min: 97 % Max: 98 % Supplemental O2: General appearance: No apparent distress, appears stated age and cooperative with exam HEENT: Normal cephalic, atraumatic without obvious deformity. Pupils equal, round, and reactive to light. Extra ocular muscles intact. Conjunctivae/corneas clear. Neck: Supple, with full range of motion. No jugular venous distention. Trachea midline. No lymphadenopathy. Respiratory: Normal respiratory effort. Clear to auscultation, bilaterally without Rales/Wheezes/Rhonchi. Cardiovascular: Regular rate and rhythm with normal S1/S2 without murmurs, rubs or gallops. Abdomen: Soft, non-tender, non-distended with normal bowel sounds. No rebound or guarding. Musculoskeletal: Medications: Continuous Meds[2] Scheduled Meds[3] Assessment Acute on chronic bilateral lower extremity cellulitis. Bilateral lower extremity edema, redness Acute on chronic kidney disease Chronic congestive heart failure with reduced ejection fraction-euvolemic History of: Recently discharged on 02/01 after treating for congestive heart failure exacerbation Insulin-dependent diabetes mellitus Hypertension Hyperlipidemia. 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 Hypothyroidism. Bladder cancer Gastroesophageal reflux disease BPH-on tamsulosin Anxiety/depression-on Zoloft. Plan: Significant redness and swelling noticed bilateral lower extremities concern for cellulitis Continue IV antibiotics with cefepime, infectious disease evaluated the patient recommended to continue antibiotics. Creatinine is close to baseline-continue to monitor. Patient looks euvolemic, resumed CHF medications, tolerating well. Bilateral lower extremity venous Dopplers-ruled out DVT Other home medications reviewed and resumed appropriately Follow-up CBC BMP ordered PT OT evaluation. DVT prophylaxis: Lovenox subcu daily. Disposition: Pending transition to oral antibiotics Pending ID clearance Possible discharge in next 2 to 3 days. -am labs, replace lytes prn -increase activity -DVT prophylaxis: [] Lovenox [] Heparin [] SCDs [x] Encourage ambulation [] Already on Anticoagulation Advance Directive: Full Code Discharge planning: TBAnson Mei MD Division of Hospitalist Medicine Inpatient Medical Services/[facility]: [phone] [1] Past Medical History: Diagnosis Date Acute HFrEF (heart failure with reduced ejection fraction) ([facility]) 09/22/2020 Bladder cancer (HCC) CHF (congestive heart failure) (HCC) Chronic HFrEF (heart failure with reduced ejection fraction) (HCC) 09/21/2020 Chronic kidney disease DM (diabetes mellitus) (HCC) DM (diabetes mellitus) (HCC) DVT (deep venous thrombosis) (HCC) ED (erectile dysfunction) Follicular non-Hodgkin's lymphoma (HCC) GERD (gastroesophageal reflux disease) GERD (gastroesophageal reflux disease) HTN (hypertension) HTN (hypertension) Hyperlipidemia Left bundle branch block 09/11/2020 No (more content not included)...[facility]07-28-2025 Nurse Note* Lavonne Grace RN - 02/14/2025 8:45 AM EDT Wound Care consulted for Pressure Injury Prevention. Pt's Simon score= 18 on 02/14 Pt's pressure points assessed. Pt turned independently in the bed for posterior assessment. Pt's Heels, Buttocks/coccyx, Back, Elbows, Occiput and ears all intact. [place] and blanchable tissues noted to coccyx. Instructed pt on pressure injury prevention and importance of turning/postioning every 2hrs while in bed and every 15 min while sitting in chair. Verbalized understanding. Prevention Measures in place, including: Pillows/wedges, Heels elevated off bed on pillows, Sacral foam (in place, intact), Zinc/Moisture Barrier ointment, Waffle chair cushion (obtain for pt once getting out of bed to chair). Skin Care precaution order set in place. Dietitian consult in place. PT consult N/A, activity/mobility subscores of 3. D/W nursing staff. Will continue to follow pt. Please secure chat for any questions or concerns. Lavonne Grace RN [id number] NoteHospitalist Progress Note 02/13/2025 [phone]: Please page me ([phone]) for patient care issues. [phone]: Please page [facility] night Hospitalist for any issues. Subjective: Admit Date: 02/10/2025 PCP: Gibson Roth (Inactive) Room#: [id number] B Interval History: Patient is lying on the bed, complaining of pain in the lower extremities Denies any chest pain shortness of breath or palpitations No other significant overnight issues. Adult diet Regular; No Added Salt (3-4 gm); 5 carb choices (75 gm/meal) @[id number]@ 24HR INTAKE/OUTPUT: Intake/Output Summary (Last 24 hours) at 02/13/2025 1510 Last data filed at 02/12/2025 1958 Gross per 24 hour Intake 240 ml Output 600 ml Net -360 ml Past Medical History: Medical History[1] LABS: CBC: Recent Labs 02/12/25 0519 02/13/25 05 WBC 3.7 4.4 RBC 5.16 5.52 HGB 15.1 15.6 HCT 44.7 48.4 MCV 86.6 87.7 RDW 18.5* 19.2* PLT 205 224 BMP: Recent Labs 02/12/2519 02/13/25 05 NA 141 142 K 2.8* 3.8 CL 106 107 CO2 21* 21* BUN 22 21 CREATININE 1.73* 1.85* GLUCOSE 82 84 CALCIUM 8.4* 8.8 ANIONGAP 14* 14* LIVER PROFILE: No results for input(s): AST, ALT, BILITOT, ALKPHOS, PROT in the last 72 hours. No lab exists for component: LABALBU PT/INR: No results for input(s): PROTIME, INR in the last 72 hours. CARDIAC ENZYMES: No results for input(s): TROPONINI in the last 72 hours. Procalcitonin: Lab Results Component Value Date PROCAL 0.08 (H) 02/12/2025 COVID-19 PCR: No results for input(s): COVID19 in the last 72 hours. Objective: Vitals: BP 138/74 (BP Location: Left arm, Patient Position: Lying) Pulse 66 Temp (!) 35.7 ?C (96.3 ?F) (Temporal) Resp 18 Ht 5' 7 (1.702 m) Wt 182 lb (82.6 kg) SpO2 95% BMI 28.51 kg/m? Pulse Ox: SpO2 Av % Min: 95 % Max: 97 % Supplemental O2: General appearance: No apparent distress, appears stated age and cooperative with exam HEENT: Normal cephalic, atraumatic without obvious deformity. Pupils equal, round, and reactive to light. Extra ocular muscles intact. Conjunctivae/corneas clear. Neck: Supple, with full range of motion. No jugular venous distention. Trachea midline. No lymphadenopathy. Respiratory: Normal respiratory effort. Clear to auscultation, bilaterally without Rales/Wheezes/Rhonchi. Cardiovascular: Regular rate and rhythm with normal S1/S2 without murmurs, rubs or gallops. Abdomen: Soft, non-tender, non-distended with normal bowel sounds. No rebound or guarding. Musculoskeletal: Medications: Continuous Meds[2] Scheduled Meds[3] Assessment Acute on chronic bilateral lower extremity cellulitis. Bilateral lower extremity edema, redness Acute on chronic kidney disease Chronic congestive heart failure with reduced ejection fraction-euvolemic History of: Recently discharged on 02/01 after treating for congestive heart failure exacerbation Insulin-dependent diabetes mellitus Hypertension Hyperlipidemia. 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 Hypothyroidism. Bladder cancer Gastroesophageal reflux disease BPH-on tamsulosin Anxiety/depression-on Zoloft. Plan: Significant redness and swelling noticed bilateral lower extremities concern for cellulitis Continue IV antibiotics with cefepime, infectious disease evaluated the patient recommended to continue antibiotics. Creatinine is close to baseline-continue to monitor. Patient looks euvolemic, resumed CHF medications, tolerating well. Bilateral lower extremity venous Dopplers-ruled out DVT Other home medications reviewed and resumed appropriately Follow-up CBC BMP ordered PT OT evaluation. DVT prophylaxis: Lovenox subcu daily. Disposition: Pending transition to oral antibiotics Pending ID clearance Possible discharge in next 2 to 3 days. -am labs, replace lytes prn -increase activity -DVT prophylaxis: [] Lovenox [] Heparin [] SCDs [x] Encourage ambulation [] Already on Anticoagulation Advance Directive: Full Code Discharge planning: GRADY Mei MD Division of Hospitalist Medicine Inpatient Medical Services/[facility]: [phone] [1] Past Medical History: Diagnosis Date Acute HFrEF (heart failure with reduced ejection fraction) ([facility]) 09/22/2020 Bladder cancer (HCC) CHF (congestive heart failure) (HCC) Chronic HFrEF (heart failure with reduced ejection fraction) (HCC) 09/21/2020 Chronic kidney disease DM (diabetes mellitus) (HCC) DM (diabetes mellitus) (HCC) DVT (deep venous thrombosis) (HCC) ED (erectile dysfunction) Follicular non-Hodgkin's lymphoma (HCC) GERD (gastroesophageal reflux disease) GERD (gastroesophageal reflux disease) HTN (hypertension) HTN (hypertension) Hyperlipidemia Left bundle branch block 09/11/2020 Non-ischemic cardiomyopathy (CMS/HCC) (HCC) Prese (more content not included)...[facility]07-26-2025 Note Hospitalist Progress Note 02/12/[id number]: Please page me ([phone]) for patient care issues. [phone]: Please page [facility] night Hospitalist for any issues. Subjective: Admit Date: 02/10/2025 PCP: Gibson Roth (Inactive) Room#: [id number] B Interval History: Patient is lying on the bed, complaining of pain in the lower extremities Denies any chest pain shortness of breath or palpitations No other significant overnight issues. Adult diet Regular; 4 carb choices (60 gm/meal); Low Fat/Low Chol/High Fiber/2 gm Na @[id number]@ 24HR INTAKE/OUTPUT: Intake/Output Summary (Last 24 hours) at 02/12/2025 1020 Last data filed at 02/11/2025 1747 Gross per 24 hour Intake -- Output 500 ml Net -500 ml Past Medical History: Medical History[1] LABS: CBC: Recent Labs 02/10/25 0224 02/12/25 0519 WBC 5.1 3.7 RBC 5.26 5.16 HGB 14.8 15.1 HCT 45.8 44.7 MCV 87.1 86.6 RDW 18.6* 18.5* PLT 198 205 BMP: Recent Labs 02/10/25 0224 02/12/25 0519 NA 141 141 K 3.9 2.8* CL 102 106 CO2 22* 21* BUN 23 22 CREATININE 1.94* 1.73* GLUCOSE 89 82 CALCIUM 8.7* 8.4* ANIONGAP 17* 14* LIVER PROFILE: Recent Labs 02/10/25 0224 AST 39* ALT 10 BILITOT 1.8* ALKPHOS 94 PROT 6.6 PT/INR: No results for input(s): PROTIME, INR in the last 72 hours. CARDIAC ENZYMES: No results for input(s): TROPONINI in the last 72 hours. Procalcitonin: Lab Results Component Value Date PROCAL 0.08 (H) 02/12/2025 COVID-19 PCR: No results for input(s): COVID19 in the last 72 hours. Objective: Vitals: BP 132/80 (BP Location: Left arm, Patient Position: Lying) Pulse 73 Temp (!) 35.8 ?C (96.5 ?F) (Temporal) Resp 17 Ht 5' 7 (1.702 m) Wt 182 lb (82.6 kg) SpO2 97% BMI 28.51 kg/m? Pulse Ox: SpO2 Av.5 % Min: 94 % Max: 97 % Supplemental O2: General appearance: No apparent distress, appears stated age and cooperative with exam HEENT: Normal cephalic, atraumatic without obvious deformity. Pupils equal, round, and reactive to light. Extra ocular muscles intact. Conjunctivae/corneas clear. Neck: Supple, with full range of motion. No jugular venous distention. Trachea midline. No lymphadenopathy. Respiratory: Normal respiratory effort. Clear to auscultation, bilaterally without Rales/Wheezes/Rhonchi. Cardiovascular: Regular rate and rhythm with normal S1/S2 without murmurs, rubs or gallops. Abdomen: Soft, non-tender, non-distended with normal bowel sounds. No rebound or guarding. Musculoskeletal: Medications: Continuous Meds[2] Scheduled Meds[3] Assessment Acute on chronic bilateral lower extremity cellulitis. Bilateral lower extremity edema, redness Acute on chronic kidney disease Chronic congestive heart failure with reduced ejection fraction-euvolemic History of: Recently discharged on 02/01 after treating for congestive heart failure exacerbation Insulin-dependent diabetes mellitus Hypertension Hyperlipidemia. 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 Hypothyroidism. Bladder cancer Gastroesophageal reflux disease BPH-on tamsulosin Anxiety/depression-on Zoloft. Plan: Significant redness and swelling noticed bilateral lower extremities concern for cellulitis Continue IV antibiotics with cefepime, infectious disease evaluated the patient recommended to continue antibiotics. Creatinine is close to baseline-continue to monitor. Patient looks euvolemic, resumed CHF medications, tolerating well. Bilateral lower extremity venous Dopplers-ruled out DVT Other home medications reviewed and resumed appropriately Follow-up CBC BMP ordered PT OT evaluation. DVT prophylaxis: Lovenox subcu daily. Disposition: Pending transition to oral antibiotics Pending ID clearance Possible discharge in next 2 to 3 days. -am labs, replace lytes prn -increase activity -DVT prophylaxis: [] Lovenox [] Heparin [] SCDs [x] Encourage ambulation [] Already on Anticoagulation Advance Directive: Full Code Discharge planning: TBD Melvin Mei MD Division of Hospitalist Medicine Inpatient Medical Services/[facility]: [phone] [1] Past Medical History: Diagnosis Date Acute HFrEF (heart failure with reduced ejection fraction) (HCC) 09/22/2020 Bladder cancer (HCC) CHF (congestive heart failure) (HCC) Chronic HFrEF (heart failure with reduced ejection fraction) (HCC) 09/21/2020 Chronic kidney disease DM (diabetes mellitus) (HCC) DM (diabetes mellitus) (HCC) DVT (deep venous thrombosis) (HCC) ED (erectile dysfunction) Follicular non-Hodgkin's lymphoma (HCC) GERD (gastroesophageal reflux disease) GERD (gastroesophageal reflux disease) HTN (hypertension) HTN (hypertension) Hyperlipidemia Left bundle branch block 09/11/2020 Non-ischemic cardiomyopathy (CMS/HCC) (HCC) Presence of cardiac resynchronizatio (more content not included)...[facility]07-25-2025 Nurse Note* Carmen Kraft RN - 02/11/2025 7:45 PM EDT ROLO wrap applied to both feet. [id number] NoteHospitalist Progress Note 02/11/2025 [phone]: Please page me ([phone]) for patient care issues. [phone]: Please page [facility] night Hospitalist for any issues. Subjective: Admit Date: 02/10/2025 PCP: Gibson Roth (Inactive) Room#: K6-472/[id number] B Interval History: Patient is lying on the bed, complaining of pain in the lower extremities Denies any chest pain shortness of breath or palpitations No other significant overnight issues. Adult diet Regular; 4 carb choices (60 gm/meal); Low Fat/Low Chol/High Fiber/2 gm Na @BTFY0VEOMAT@ 24HR INTAKE/OUTPUT: Intake/Output Summary (Last 24 hours) at 02/11/2025 1729 Last data filed at 02/11/2025 0840 Gross per 24 hour Intake 240 ml Output 300 ml Net -60 ml Past Medical History: Medical History[1] LABS: CBC: Recent Labs 02/10/25223 WBC 5.1 RBC 5.26 HGB 14.8 HCT 45.8 MCV 87.1 RDW 18.6* PLT 198 BMP: Recent Labs 02/10/25223 NA 141 K 3.9 CL 102 CO2 22* BUN 23 CREATININE 1.94* GLUCOSE 89 CALCIUM 8.7* ANIONGAP 17* LIVER PROFILE: Recent Labs 02/10/25223 AST 39* ALT 10 BILITOT 1.8* ALKPHOS 94 PROT 6.6 PT/INR: No results for input(s): PROTIME, INR in the last 72 hours. CARDIAC ENZYMES: No results for input(s): TROPONINI in the last 72 hours. Procalcitonin: No results found for: PROCAL COVID-19 PCR: No results for input(s): COVID19 in the last 72 hours. Objective: Vitals: BP 138/69 (BP Location: Left arm, Patient Position: Lying) Pulse 69 Temp 36 ?C (96.8 ?F) (Temporal) Resp 16 Wt 182 lb (82.6 kg) SpO2 97% BMI 28.51 kg/m? Pulse Ox: SpO2 Av.7 % Min: 96 % Max: 97 % Supplemental O2: General appearance: No apparent distress, appears stated age and cooperative with exam HEENT: Normal cephalic, atraumatic without obvious deformity. Pupils equal, round, and reactive to light. Extra ocular muscles intact. Conjunctivae/corneas clear. Neck: Supple, with full range of motion. No jugular venous distention. Trachea midline. No lymphadenopathy. Respiratory: Normal respiratory effort. Clear to auscultation, bilaterally without Rales/Wheezes/Rhonchi. Cardiovascular: Regular rate and rhythm with normal S1/S2 without murmurs, rubs or gallops. Abdomen: Soft, non-tender, non-distended with normal bowel sounds. No rebound or guarding. Musculoskeletal: Medications: Continuous Meds[2] Scheduled Meds[3] Assessment Acute on chronic bilateral lower extremity cellulitis. Bilateral lower extremity edema, redness Acute on chronic kidney disease Chronic congestive heart failure with reduced ejection fraction-euvolemic History of: Recently discharged on 02/01 after treating for congestive heart failure exacerbation Insulin-dependent diabetes mellitus Hypertension Hyperlipidemia. 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 Hypothyroidism. Bladder cancer Gastroesophageal reflux disease BPH-on tamsulosin Anxiety/depression-on Zoloft. Plan: Significant redness and swelling noticed bilateral lower extremities concern for cellulitis Continue IV antibiotics with cefepime, infectious disease evaluated the patient recommended to continue antibiotics. Creatinine is close to baseline-continue to monitor. Patient looks euvolemic, resumed CHF medications, tolerating well. Bilateral lower extremity venous Dopplers-ruled out DVT Other home medications reviewed and resumed appropriately Follow-up CBC BMP ordered PT OT evaluation. DVT prophylaxis: Lovenox subcu daily. Disposition: Pending transition to oral antibiotics Pending ID clearance Possible discharge in next 2 to 3 days. -am labs, replace lytes prn -increase activity -DVT prophylaxis: [] Lovenox [] Heparin [] SCDs [x] Encourage ambulation [] Already on Anticoagulation Advance Directive: Full Code Discharge planning: TBAnson Mei MD Division of Hospitalist Medicine Inpatient Medical Services/[facility]: [phone] [1] Past Medical History: Diagnosis Date Acute HFrEF (heart failure with reduced ejection fraction) ([facility]) 09/22/2020 Bladder cancer (HCC) CHF (congestive heart failure) (HCC) Chronic HFrEF (heart failure with reduced ejection fraction) ([facility]) 09/21/2020 Chronic kidney disease DM (diabetes mellitus) (HCC) DM (diabetes mellitus) (HCC) DVT (deep venous thrombosis) (HCC) ED (erectile dysfunction) Follicular non-Hodgkin's lymphoma (HCC) GERD (gastroesophageal reflux disease) GERD (gastroesophageal reflux disease) HTN (hypertension) HTN (hypertension) Hyperlipidemia Left bundle branch block 09/11/2020 Non-ischemic cardiomyopathy (CMS/HCC) (HCC) Presence of cardiac resynchronization therapy defibrillator (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) 01/17/2022 PUD (peptic ulcer disease) Pulmonary embolism (HCC) Pulmonary fibrosis (HCC) Rosacea Stage 3b chronic kidney di (more content not included)...[facility] 02-11-2025 NoteCare Management Progress Note Short Medical why still here: Patient remains on 4S today for BLE cellulitis, IV ATBX through the weekend. CHF, diuresis continued. ID consulted and seen. Wound following. Monitoring labs/lytes. No indications for therapy at this time. Planned Discharge Disposition: From home, possible need for therapy to eval. [facility] to follow. Barriers/Today we still Wait: IV ATBX, ID final recs. Clinical stability. Length of Stay (Days): 1 GMLOS: No GMLOS Documented [facility]07-25-2025 Progress note* Care Coordination - Jewels Ortiz RN - 02/11/2025 2:51 PM EDT Care Management Progress Note Short Medical why still here: Patient remains on 4S today for BLE cellulitis, IV ATBX through the weekend. CHF, diuresis continued. ID consulted and seen. Wound following. Monitoring labs/lytes. No indications for therapy at this time. Planned Discharge Disposition: From home, possible need for therapy to eval. [facility] to follow. Barriers/Today we still Wait: IV ATBX, ID final recs. Clinical stability. Length of Stay (Days): 1 GMLOS: No GMLOS Documented [id number] Discharge instructions* Discharge Instr - MICHELE* Maria Antonia Mcmullen RN - 02/11/2025 1:56 PM EDT Images from the original note were not included. 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 Secondary Emergency Contact: Shaylee Nascimento Relation: Child Past Surgical History: Past Surgical History: Procedure Laterality Date BONE MARROW BIOPSY CARDIAC PACEMAKER PLACEMENT COLONOSCOPY COLONOSCOPY COSMETIC SURGERY face lift, rhinoplasty EYE SURGERY cataract removal FACIAL COSMETIC SURGERY LYMPH NODE BIOPSY SEPTOPLASTY SKIN BIOPSY VENTRICULAR CARDIAC PACEMAKER INSERTION 09/11/2020 Bi-V ICD Immunization History: Immunization History Administered Date(s) Administered Moderna SARS-CoV-2 Vaccination 10/13/2020, 11/10/2020, 09/11/2021 Tdap 08/24/2020 Active Problems: Medical Problems Problem List * (Principal) Cellulitis Acute HFrEF (heart failure with reduced ejection fraction) (HCC) Presence of cardiac resynchronization therapy defibrillator (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) Acute systolic congestive heart failure (HCC) Cellulitis of lower extremity, unspecified laterality Pulmonary embolism (HCC) Left bundle branch block Iron deficiency anemia, unspecified ICD (implantable cardioverter-defibrillator), biventricular, 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) DVT (deep venous thrombosis) (HCC) Iron malabsorption Chronic HFrEF (heart failure with reduced ejection fraction) (HCC) HTN (hypertension) Hyperlipidemia Acute on chronic clinical systolic heart failure (HCC) History of peptic ulcer disease Epigastric pain Calculus of gallbladder without cholecystitis without obstruction Non-ischemic cardiomyopathy (CMS/HCC) (HCC) CHF (congestive heart failure) (HCC) 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) Abdominal pain Isolation/Infection: No active isolations No active infections Nurse Assessment: Last Vital Signs: BP 138/69 (BP Location: Left arm, Patient Position: Lying) Pulse 69 Temp 36 C(96.8 F) (Temporal) Resp 16 Wt 82.6 kg (182 lb) SpO2 97% BMI 28.51 kg/m Last documented pain score (0-10 scale): Last Weight: Wt Readings from Last 1 Encounters: 02/10/25 82.6 kg (182 lb) Mental Status: {MICHELE Patient Mental Status:44863} IV Access: {MICHELE IV Access:15021} Nursing Mobility/ADLs: Walking {SUDHAKAR ADL:95358::Independent} Transfer {SUDHAKAR ADL:18835::Independent} Bathing {SUDHAKAR ADL:81809::Independent} Dressing {SUDHAKAR ADL:::Independent} Toileting {SUDHAKAR ADL:::Independent} Feeding {SUDHAKAR ADL:::Independent} Market Survey Representative {SUDHAKAR ADL:::Independent} Med Delivery {yes/no:39994} Wound Care Documentation and Therapy: Elimination: Continence: Bowel: {yes/no:93745} Bladder: {yes/no:38726} Urinary Catheter: {MICHELE Urinary Catheter:47035} Colostomy/Ileostomy/Ileal Conduit: {YES / NO:} Date of Last BM: Intake/Output Summary (Last 24 hours) at 02/11/2025 1356 Last data filed at 02/11/2025 0840 Gross per 24 hour Intake 240 ml Output 300 ml Net -60 ml I/O last 3 completed shifts: In: 50 (0.6 mL/kg) [IV Piggyback:50] Out: - (0 mL/kg) Weight: 82.6 kg Safety Concerns: {MICHELE Safety Concerns:93520} Impairments/Disabilities: {MICHELE Impairments/Disabilities:73051} Nutrition Therapy: Current Nutrition Therapy: {MICHELE Diet List:65820} Routes of Feeding: {routes of feedin} Liquids: {liquid consistency:62494} Daily Fluid Restriction: {daily fluid restriction:43209} Last Modified Barium Swallow with Video (Video Swallowing Test): {done not done:44499} Treatments at the Time of Hospital Discharge: Respiratory Treatments: Oxygen Therapy: {Therapy; copd oxygen:38511} Ventilator: {MICHELE Ventilator:59140} Rehab Therapies: {GEN THERAPY DISCIPLINE SCAL:7315003} Weight Bearing Status/Restrictions: {POD WEIGHT BEARIN} Other Medical Equipment (for information only, NOT a DME order): {Assistive Devices DME:76540} Other Treatments: Patient's personal belongings (please select all that are sent with patient): {MICHELE Patient Belongings:04382} RN SIGNATURE: {E-signature:55589} CASE MANAGEMENT/SOCIAL WORK SECTION Inpatient Status Date: Discharging to Facility/ Agency Name: [facility] Address: [address] [place] [address] Dialysis Facility (if applicable) Name: Address: Dialysis Schedule: Phone: Fax: Business Solutions Architect/Balance Bridge Inspector signature: {E-signature:89446} PHYSICIAN SECTION Name: Megan Nascimento Prognosis: {Rehab Prognosis:81443} Condition at Discharge: {Patient Condition:36702} Rehab Potential (if transferring to Rehab): {Rehab Prognosis:39366} Recommended Labs or Other Treatments After Discharge: The individual is being admitted to a nursing facility directly from an [facility] or a unit of a [facility] that is not operated by or licensed by [facility] under section 5119.14 or 5160-3-15.1 5 The individual requires the level of services provided by a nursing facility for the condition for which he or she was treated in the hospital and, Physician Certification: I certify the above information and transfer of Megan Nascimento is necessary for the continuing treatment of the diagnosis listed and that he requires {MICHELE Level of Care:58708} for {greater less than:80572} 30 days. Update Admission H&P: {MICHELE Changes in H&P:50916} PHYSICIAN SIGNATURE: {E-signature:12029} documented in this [facility]07-25-2025 NotePatient states he quit smoking in 1999, no history of vaping or smokeless tobacco. Smoking cessation counseling no indicated.[facility] 02-11-2025 [facility] - Infectious Diseases Attending Progress Note Patient seen and examined Chart reviewed Following for bilateral LE edema/redness, here for CHF exacerbation No fevers noted overnight Redness of bilateral LE slightly improved. Past Medical History: Medical History[1] Past Surgical History: Surgical History[2] Current Medications: Current Medications[3] Allergies: Allergies[4] Social History: Social History Socioeconomic History Marital status: Spouse name: Not on file Number of children: Not on file Years of education: Not on file Highest education level: Not on file Occupational History Not on file Tobacco Use Smoking status: Former Current packs/day: 0.00 Types: Cigarettes Quit date: 11/08/1999 Years since quittin.2 Smokeless tobacco: Never Substance and Sexual Activity Alcohol use: Yes Comment: occasionally Drug use: No Comment: caffeine:1-2 cups of coffee a day Sexual activity: Not on file Other Topics Concern Not on file Social History Narrative Not on file Social Drivers of Health Financial Resource Strain: Not on file Food Insecurity: Unknown (02/10/2025) Hunger Vital Sign Worried About Running Out of Food in the Last Year: Not on file Ran Out of Food in the Last Year: Never true Transportation Needs: No Transportation Needs (02/10/2025) PRAPARE - Transportation Lack of Transportation (Medical): No Lack of Transportation (Non-Medical): No Physical Activity: Not on file Stress: Not on file Social Connections: Not on file Intimate Partner Violence: Not At Risk (02/10/2025) Humiliation, Afraid, Rape, and Kick questionnaire Fear of Current or Ex-Partner: No Emotionally Abused: No Physically Abused: No Sexually Abused: No Housing Stability: Low Risk (02/10/2025) Housing Stability Vital Sign Unable to Pay for Housing in the Last Year: No Number of Times Moved in the Last Year: 0 Homeless in the Last Year: No Family History: Family History[5] Vitals: Patient Vitals for the past 24 hrs: BP Temp Temp src Pulse Resp SpO2 02/11/25 0818 138/69 36 ?C (96.8 ?F) Temporal 69 16 97 % 02/10/25 1935 136/79 36.3 ?C (97.3 ?F) Temporal 77 17 97 % 02/10/25 1739 140/81 36.2 ?C (97.2 ?F) Temporal 78 18 96 % 02/10/25 1542 (!) 141/81 -- -- 71 18 97 % Physical Exam: Physical Exam Patient lying in bed NAD, pleasant male EOMI, PERRLA CV - RRR + murmur noted Abdomen - soft positive BS, nontender nondistended Bilateral LE with rubra +/- superimposed cellulitis, bilateral edema noted as well. Labs: Recent Labs 02/10/25223 NA 141 K 3.9 CL 102 CO2 22* BUN 23 CREATININE 1.94* GLUCOSE 89 CALCIUM 8.7* PROT 6.6 BILITOT 1.8* ALKPHOS 94 AST 39* ALT 10 Recent Labs 02/10/25223 WBC 5.1 HGB 14.8 HCT 45.8 PLT 198 LA 2 Micro: None Lines: PIV Radiography/Echo/Other: reviewed No recent US to r/o DVT Antimicrobials,Start/End Dates: Cefepime IV Impression: 84 M with multiple comorbidities, admitted with bilateral leg edema and erythema, acute on chronic: Presumed cellulitis- but not impressed, on elevation, some blanching happens, and no calor. More like dependent rubor. Recent CHF exacerbation- seems improved form 2 weeks ago. Overall nontoxic. Plan: Ordered duplex ultrasound Recommend leg elevation and start using compression hose. Nailcare with podiatry. Continue IV cefepime thru weekend, needs aggressive leg elevation Total time of 35 minutes on this day of encounter spent on, but not limited to review of tests, medical records , complex history , counseling and education (patient, family member, caregiver), and ordering medications, tests, and procedures. [1] Past Medical History: Diagnosis Date Acute HFrEF (heart failure with reduced ejection fraction) ([facility]) 09/22/2020 Bladder cancer ([facility]) CHF (congestive heart failure) ([facility]) Chronic HFrEF (heart failure with reduced ejection fraction) ([facility]) 09/21/2020 Chronic kidney disease DM (diabetes mellitus) (HCC) DM (diabetes mellitus) (HCC) DVT (deep venous thrombosis) ([facility]) ED (erectile dysfunction) Follicular non-Hodgkin's lymphoma (HCC) GERD (gastroesophageal reflux disease) GERD (gastroesophageal reflux disease) HTN (hypertension) HTN (hypertension) Hyperlipidemia Left bundle branch block 09/11/2020 Non-ischemic cardiomyopathy (CMS/HCC) ([facility]) Presence of cardiac resynchronization therapy defibrillator (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) 01/17/2022 PUD (peptic ulcer disease) Pulmonary embolism (HCC) Pulmonary fibrosis ([facility]) Rosacea Stage 3b chronic kidney disease ([facility]) 09/21/2020 Tachycardia [2] Past Surgical History: Procedure Laterality Date BONE MARROW BIOPSY CARDIAC PACEMAKER PLACEMENT COLONOSCOPY COLONOSCOPY COSMETIC SURGERY face lift, rhinoplasty EYE SURGERY cataract removal FACIAL COSMETIC SURGERY LYMPH NODE BIOPSY SEPTOPLASTY SKIN BIOPSY VENTRICULA (more content not included)...[facility] [id number] Patient's home Note* Home Care - Maria Antonia Mcmullen RN - 02/11/2025 8:39 AM EDT Patient is currently active with [facility]. The patients current certification period will on 04/04/2025. The patient is currently receiving SN, PT services through the agency. [employer] to continue to follow. [facility] [id number] Consult note* Mannie Samuel MD - 02/10/2025 2:43 PM EDT Associated Order(s): IP CONSULT TO INFECTIOUS DISEASES Images from the original note were not included. [facility] - Infectious Diseases Attending Consult Note Reason for Consult: Bilateral leg cellulitis, recent admission for CHF exacerbation History of Present Illness: 84 M with DM , CHF, GERD, DVT/PE, HTN Bladder CA, NHL(in remission 15 years), presented with acute on chornic leg edema with sharp pain to both legs along with worse erythema for past 2 days. Tylenold did not help. He was just discharged on 02/01 for CHF exacerbation and diruetics were optimized for homegoing, which he claims he has remained compliant with. He reports less CP/SOB and has lost >10 # already, with overall improvement in swelling to his legs and scrotum. Denies stubbing his toesor any injuries or falls. On intake, afebrile, VSS, and labs WNL, essentially unchanged form 02/01. BNP is still up to 30K. Patient started on broad spectrum antibiotics and ID consulted. 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 Past Medical History: Medical History[1] Past Surgical History: Surgical History[2] Current Medications: Current Medications[3] Allergies: Allergies[4] Social History: Social History Socioeconomic History Marital status: Spouse name: Not on file Number of children: Not on file Years of education: Not on file Highest education level: Not on file Occupational History Not on file Tobacco Use Smoking status: Former Current packs/day: 0.00 Types: Cigarettes Quit date: 11/08/1999 Years since quittin.2 Smokeless tobacco: Never Substance and Sexual Activity Alcohol use: Yes Comment: occasionally Drug use: No Comment: caffeine:1-2 cups of coffee a day Sexual activity: Not on file Other Topics Concern Not on file Social History Narrative Not on file Social Drivers of Health Financial Resource Strain: Not on file Food Insecurity: Not on file Transportation Needs: Not on file Physical Activity: Not on file Stress: Not on file Social Connections: Not on file Intimate Partner Violence: Not At Risk (01/28/2025) Humiliation, Afraid, Rape, and Kick questionnaire Fear of Current or Ex-Partner: No Emotionally Abused: No Physically Abused: No Sexually Abused: No Housing Stability: Not on file Family History: Family History[5] Review of Systems: Review of Systems Constitutional: Negative for chills, fatigue and fever. Respiratory: Negative for cough and shortness of breath (platypnea, but better since treated for CHF 2 weeks ago). Cardiovascular: Positive for leg swelling (chornic, but redness andpain worsened 2 days ago). Negative for chest pain. Gastrointestinal: Negative. Genitourinary: Positive for scrotal swelling (much better form last admission). Skin: Positive for color change (to both pretibia). Negative for rash. Neurological: Negative for weakness and headaches. Hematological: Does not bruise/bleed easily. Psychiatric/Behavioral: Negative for agitation and confusion. Vitals: Patient Vitals for the past 24 hrs: BP Temp Temp src Pulse Resp SpO2 Weight 02/10/25 1206 (!) 157/89 36.6 C (97.8 F) Temporal 87 20 98 % 82.6 kg (182 lb) 02/10/25 0647 (!) 156/85 -- -- 79 16 98 % -- 02/10/25 0134 133/74 36.6 C (97.8 F) Temporal 85 17 98 % -- Physical Exam: Physical Exam Labs: Recent Labs 02/10/25223 NA 141 K 3.9 CL 102 CO2 22* BUN 23 CREATININE 1.94* GLUCOSE 89 CALCIUM 8.7* PROT 6.6 BILITOT 1.8* ALKPHOS 94 AST 39* ALT 10 Recent Labs 02/10/25223 WBC 5.1 HGB 14.8 HCT 45.8 PLT 198 LA 2 Micro: No results for input(s): COVID19 in the last 72 hours. No recent studies Lines: PIV Radiography/Echo/Other: reviewed No recent US to r/o DVT Antimicrobials,Start/End Dates: Vancomycin Cefepime Impression: 84 M with multiple comorbidities, admitted with bilateral leg edema and erythema, acute on chronic: Presumed cellulitis- but not impressed, on elevation, some blanching happens, and no calor. More like dependent rubor. Recent CHF exacerbation- seems improved form 2 weeks ago. Overall nontoxic. Plan: Check PCT, US LE for DVT. But if labs unrevealing, favor monitoring off antibiotic. Recommend leg elevation and start using compression hose. Nailcare with podiatry. Dr. Muniz assumes coverage tomorrow for ID. Total time of 60 minutes on this day of encounter spent on, but not limited to review of tests, medical records , complex history , counseling and education (patient, family member, caregiver), and ordering medications, tests, and procedures. [1] Past Medical History: Diagnosis Date Acute HFrEF (heart failure with reduced ejection fraction) ([facility]) 09/22/2020 Bladder cancer ([facility]) CHF (congestive heart failure) ([facility]) Chronic HFrEF (heart failure with reduced ejection fraction) ([facility]) 09/21/2020 Chronic kidney disease DM (diabetes mellitus) (HCC) DM (diabetes mellitus) (HCC) DVT (deep venous thrombosis) ([facility]) ED (erectile dysfunction) Follicular non-Hodgkin's lymphoma (HCC) GERD (gastroesophageal reflux disease) GERD (gastroesophageal reflux disease) HTN (hypertension) HTN (hypertension) Hyperlipidemia Left bundle branch block 09/11/2020 Non-ischemic cardiomyopathy (CMS/HCC) ([facility]) Presence of cardiac resynchronization therapy defibrillator (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) 01/17/2022 PUD (peptic ulcer disease) Pulmonary embolism ([facility]) Pulmonary fibrosis ([facility]) Rosacea Stage 3b chronic kidney disease ([facility]) 09/21/2020 Tachycardia [2] Past Surgical History: Procedure Laterality Date BONE MARROW BIOPSY CARDIAC PACEMAKER PLACEMENT COLONOSCOPY COLONOSCOPY COSMETIC SURGERY face lift, rhinoplasty EYE SURGERY cataract removal FACIAL COSMETIC SURGERY LYMPH NODE BIOPSY SEPTOPLASTY SKIN BIOPSY VENTRICULAR CARDIAC PACEMAKER INSERTION 09/11/2020 Bi-V ICD [3] Current Facility-Administered Medications Medication Dose Route Frequency Provider Last Rate Last Admin acetaminophen (Tylenol) tablet 650 mg 650 mg Oral q6h PRN Moises Adan MD Or acetaminophen (Tylenol) suppository 650 mg 650 mg Rectal q6h PRN Moises Adan MD B complex-vitamin C-folic acid (Nephrocaps) capsule 1 capsule 1 capsule Oral Daily Moises Adan MD cefepime (Maxipime) 2,000 mg in sodium chloride 0.9 % 50 mL IVPB Mini-Bag Plus 2,000 mg [id number] Moises Adan MD cholecalciferol (Vitamin D-3) tablet 50 mcg 50 mcg Oral Daily Moiess Adan MD 50 mcg at 02/10/25 1213 cyanocobalamin (Vitamin B-12) tablet 1,000 mcg 1,000 mcg Oral Daily Moises Adan MD dextrose 5 % infusion 100 mL/hr IntraVENous PRN Moises Adan MD dextrose 50 % solution 12.5 g 12.5 g IntraVENous PRN Moises Adan MD enoxaparin (Lovenox) syringe 40 mg 40 mg SubCUTAneous Daily Moises Adan MD ferrous sulfate tablet 325 mg 325 mg Oral Daily with breakfast Moises Adan MD gabapentin (Neurontin) capsule 100 mg 100 mg Oral BID Moises Adan MD 100 mg at 02/10/25 1213 glipiZIDE (Glucotrol) tablet 2.5 mg 2.5 mg Oral qAM AC Moises Adan MD glucagon (human recombinant) injection 1 mg 1 mg IntraMUSCular PRN Moises Adan MD glucose oral gel 15 g 15 g Oral PRN Moises Adan MD Insulin Lispro (Humalog) injection 0-12 Units 0-12 Units SubCUTAneous TID WC Moises Adan MD And Insulin Lispro (Humalog) injection 0-12 Units 0-12 Units SubCUTAneous Nightly Moises Adan MD levothyroxine (Synthroid, Levoxyl) tablet 25 mcg 25 mcg Oral Daily Moises Adan MD metoprolol succinate XL (Toprol-XL) 24 hr tablet 100 mg 100 mg Oral Daily Moises Adan MD 100 mg at 02/10/25 1213 ondansetron ODT (Zofran-ODT) disintegrating tablet 4 mg 4 mg Oral q8h PRN Moises Adan MD Or ondansetron (Zofran) injection 4 mg 4 mg IntraVENous q6h PRN Moises Adan MD pantoprazole (ProtoNix) EC tablet 40 mg 40 mg Oral qAM AC Moises Adan MD rosuvastatin (Crestor) tablet 20 mg 20 mg Oral Daily Moises Adan MD 20 mg at 02/10/25 1213 sacubitril-valsartan (Entresto) 24-26 MG per tablet 1 tablet 1 tablet Oral BID Moises Adan MD 1 tablet at 02/10/25 1213 sertraline (Zoloft) tablet 25 mg 25 mg Oral Daily Moises Adan MD sucralfate (Carafate) tablet 1 g 1 g Oral BID AC Moises Adan MD tamsulosin (Flomax) 24 hr capsule 0.4 mg 0.4 mg Oral Daily Moises Adan MD 0.4 mg at 02/10/25 1225 torsemide (Demadex) tablet 40 mg 40 mg Oral Daily Moises Adan MD 40 mg at 02/10/25 1212 Current Outpatient Medications Medication Sig Dispense Refill cholecalciferol (Vitamin D-3) 25 MCG (1000 UT) capsule Take by mouth. cyanocobalamin (Vitamin B-12) 1000 MCG tablet Take 1 tablet by mouth in the morning. ferrous sulfate 325 (65 Fe) MG tablet Take 325 mg by mouth. gabapentin (Neurontin) 100 MG capsule Take 100 mg by mouth. glimepiride (Amaryl) 1 MG tablet Take 1 mg by mouth daily (with breakfast). levothyroxine (Synthroid, Levoxyl) 25 MCG tablet Take 25 mcg by mouth in the morning. metoprolol succinate XL (Toprol-XL) 100 MG 24 hr tablet Take 100 mg by mouth in the morning. Multiple Vitamin (multivitamin) tablet Take 1 tablet by mouth daily. pantoprazole (ProtoNix) 40 MG EC tablet daily rosuvastatin (Crestor) 20 MG tablet Take 20 mg by mouth daily. sacubitril-valsartan (Entresto) 24-26 MG tablet Take 1 tablet by mouth in the morning and 1 tablet before bedtime. 180 tablet 1 sertraline (Zoloft) 25 MG tablet Take 25 mg by mouth in the morning. sucralfate (Carafate) 1 g tablet Take 1 g by mouth. tamsulosin (Flomax) 0.4 MG 24 hr capsule Take 1 capsule (0.4 mg) by mouth daily. 30 capsule 3 torsemide (Demadex) 20 MG tablet Take 2 tablets (40 mg) by mouth daily. Do not start before February 02, 2025. 60 tablet 3 [4] Allergies Allergen Reactions Atorvastatin Other reaction(s): Myalgia Latanoprost Other reaction(s): Blurring of visual image, Excessive tear production, Red eye Lovastatin Other reaction(s): Myalgia Other [5] Family History Problem Relation Name Age of Onset High Blood Pressure Father High Blood Pressure [id number]* Mannie Samuel MD - 02/10/2025 2:43 PM EDT Associated Order(s): IP CONSULT TO INFECTIOUS DISEASES Images from the original note were not included. [facility] - Infectious Diseases Attending Consult Note Reason for Consult: Bilateral leg cellulitis, recent admission for CHF exacerbation History of Present Illness: 84 M with DM , CHF, GERD, DVT/PE, HTN Bladder CA, NHL(in remission 15 years), presented with acute on chornic leg edema with sharp pain to both legs along with worse erythema for past 2 days. Tylenold did not help. He was just discharged on 02/01 for CHF exacerbation and diruetics were optimized for homegoing, which he claims he has remained compliant with. He reports less CP/SOB and has lost >10 # already, with overall improvement in swelling to his legs and scrotum. Denies stubbing his toesor any injuries or falls. On intake, afebrile, VSS, and labs WNL, essentially unchanged form 02/01. BNP is still up to 30K. Patient started on broad spectrum antibiotics and ID consulted. 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 Past Medical History: Medical History[1] Past Surgical History: Surgical History[2] Current Medications: Current Medications[3] Allergies: Allergies[4] Social History: Social History Socioeconomic History Marital status: Spouse name: Not on file Number of children: Not on file Years of education: Not on file Highest education level: Not on file Occupational History Not on file Tobacco Use Smoking status: Former Current packs/day: 0.00 Types: Cigarettes Quit date: 11/08/1999 Years since quittin.2 Smokeless tobacco: Never Substance and Sexual Activity Alcohol use: Yes Comment: occasionally Drug use: No Comment: caffeine:1-2 cups of coffee a day Sexual activity: Not on file Other Topics Concern Not on file Social History Narrative Not on file Social Drivers of Health Financial Resource Strain: Not on file Food Insecurity: Not on file Transportation Needs: Not on file Physical Activity: Not on file Stress: Not on file Social Connections: Not on file Intimate Partner Violence: Not At Risk (01/28/2025) Humiliation, Afraid, Rape, and Kick questionnaire Fear of Current or Ex-Partner: No Emotionally Abused: No Physically Abused: No Sexually Abused: No Housing Stability: Not on file Family History: Family History[5] Review of Systems: Review of Systems Constitutional: Negative for chills, fatigue and fever. Respiratory: Negative for cough and shortness of breath (platypnea, but better since treated for CHF 2 weeks ago). Cardiovascular: Positive for leg swelling (chornic, but redness andpain worsened 2 days ago). Negative for chest pain. Gastrointestinal: Negative. Genitourinary: Positive for scrotal swelling (much better form last admission). Skin: Positive for color change (to both pretibia). Negative for rash. Neurological: Negative for weakness and headaches. Hematological: Does not bruise/bleed easily. Psychiatric/Behavioral: Negative for agitation and confusion. Vitals: Patient Vitals for the past 24 hrs: BP Temp Temp src Pulse Resp SpO2 Weight 02/10/25 1206 (!) 157/89 36.6 C (97.8 F) Temporal 87 20 98 % 82.6 kg (182 lb) 02/10/25 0647 (!) 156/85 -- -- 79 16 98 % -- 02/10/25 0134 133/74 36.6 C (97.8 F) Temporal 85 17 98 % -- Physical Exam: Physical Exam Labs: Recent Labs 02/10/25223 NA 141 K 3.9 CL 102 CO2 22* BUN 23 CREATININE 1.94* GLUCOSE 89 CALCIUM 8.7* PROT 6.6 BILITOT 1.8* ALKPHOS 94 AST 39* ALT 10 Recent Labs 02/10/25223 WBC 5.1 HGB 14.8 HCT 45.8 PLT 198 LA 2 Micro: No results for input(s): COVID19 in the last 72 hours. No recent studies Lines: PIV Radiography/Echo/Other: reviewed No recent US to r/o DVT Antimicrobials,Start/End Dates: Vancomycin Cefepime Impression: 84 M with multiple comorbidities, admitted with bilateral leg edema and erythema, acute on chronic: Presumed cellulitis- but not impressed, on elevation, some blanching happens, and no calor. More like dependent rubor. Recent CHF exacerbation- seems improved form 2 weeks ago. Overall nontoxic. Plan: Check PCT, US LE for DVT. But if labs unrevealing, favor monitoring off antibiotic. Recommend leg elevation and start using compression hose. Nailcare with podiatry. Dr. Muniz assumes coverage tomorrow for ID. Total time of 60 minutes on this day of encounter spent on, but not limited to review of tests, medical records , complex history , counseling and education (patient, family member, caregiver), and ordering medications, tests, and procedures. [1] Past Medical History: Diagnosis Date Acute HFrEF (heart failure with reduced ejection fraction) ([facility]) 09/22/2020 Bladder cancer (HCC) CHF (congestive heart failure) ([facility]) Chronic HFrEF (heart failure with reduced ejection fraction) ([facility]) 09/21/2020 Chronic kidney disease DM (diabetes mellitus) (HCC) DM (diabetes mellitus) (HCC) DVT (deep venous thrombosis) ([facility]) ED (erectile dysfunction) Follicular non-Hodgkin's lymphoma (HCC) GERD (gastroesophageal reflux disease) GERD (gastroesophageal reflux disease) HTN (hypertension) HTN (hypertension) Hyperlipidemia Left bundle branch block 09/11/2020 Non-ischemic cardiomyopathy (CMS/HCC) ([facility]) Presence of cardiac resynchronization therapy defibrillator (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) 01/17/2022 PUD (peptic ulcer disease) Pulmonary embolism (HCC) Pulmonary fibrosis (HCC) Rosacea Stage 3b chronic kidney disease ([facility]) 09/21/2020 Tachycardia [2] Past Surgical History: Procedure Laterality Date BONE MARROW BIOPSY CARDIAC PACEMAKER PLACEMENT COLONOSCOPY COLONOSCOPY COSMETIC SURGERY face lift, rhinoplasty EYE SURGERY cataract removal FACIAL COSMETIC SURGERY LYMPH NODE BIOPSY SEPTOPLASTY SKIN BIOPSY VENTRICULAR CARDIAC PACEMAKER INSERTION 09/11/2020 Bi-V ICD [3] Current Facility-Administered Medications Medication Dose Route Frequency Provider Last Rate Last Admin acetaminophen (Tylenol) tablet 650 mg 650 mg Oral q6h PRN Moises Adan MD Or acetaminophen (Tylenol) suppository 650 mg 650 mg Rectal q6h PRN Moises Adan MD B complex-vitamin C-folic acid (Nephrocaps) capsule 1 capsule 1 capsule Oral Daily Moises Adan MD cefepime (Maxipime) 2,000 mg in sodium chloride 0.9 % 50 mL IVPB Mini-Bag Plus 2,000 mg [id number] Moises Adan MD cholecalciferol (Vitamin D-3) tablet 50 mcg 50 mcg Oral Daily Moises Adan MD 50 mcg at 02/10/25 1213 cyanocobalamin (Vitamin B-12) tablet 1,000 mcg 1,000 mcg Oral Daily Moises Adan MD dextrose 5 % infusion 100 mL/hr IntraVENous PRN Moises Adan MD dextrose 50 % solution 12.5 g 12.5 g IntraVENous PRN Moises Adan MD enoxaparin (Lovenox) syringe 40 mg 40 mg SubCUTAneous Daily Moises Adan MD ferrous sulfate tablet 325 mg 325 mg Oral Daily with breakfast Moises Adan MD gabapentin (Neurontin) capsule 100 mg 100 mg Oral BID Moises Adan MD 100 mg at 02/10/25 1213 glipiZIDE (Glucotrol) tablet 2.5 mg 2.5 mg Oral qAM AC Moises Adan MD glucagon (human recombinant) injection 1 mg 1 mg IntraMUSCular PRN Moises Adan MD glucose oral gel 15 g 15 g Oral PRN Moises Adan MD Insulin Lispro (Humalog) injection 0-12 Units 0-12 Units SubCUTAneous TID WC Moises Adan MD And Insulin Lispro (Humalog) injection 0-12 Units 0-12 Units SubCUTAneous Nightly Moises Adan MD levothyroxine (Synthroid, Levoxyl) tablet 25 mcg 25 mcg Oral Daily Moises Adan MD metoprolol succinate XL (Toprol-XL) 24 hr tablet 100 mg 100 mg Oral Daily Moises Adan MD 100 mg at 02/10/25 1213 ondansetron ODT (Zofran-ODT) disintegrating tablet 4 mg 4 mg Oral q8h PRN Moisse Adan MD Or ondansetron (Zofran) injection 4 mg 4 mg IntraVENous q6h PRN Moises Adan MD pantoprazole (ProtoNix) EC tablet 40 mg 40 mg Oral qAM AC Moises Adan MD rosuvastatin (Crestor) tablet 20 mg 20 mg Oral Daily Moises Adan MD 20 mg at 02/10/25 1213 sacubitril-valsartan (Entresto) 24-26 MG per tablet 1 tablet 1 tablet Oral BID Moises Adan MD 1 tablet at 02/10/25 1213 sertraline (Zoloft) tablet 25 mg 25 mg Oral Daily Moises Adan MD sucralfate (Carafate) tablet 1 g 1 g Oral BID AC Moises Adan MD tamsulosin (Flomax) 24 hr capsule 0.4 mg 0.4 mg Oral Daily Moises Adan MD 0.4 mg at 02/10/25 1225 torsemide (Demadex) tablet 40 mg 40 mg Oral Daily Moises Adan MD 40 mg at 02/10/25 1212 Current Outpatient Medications Medication Sig Dispense Refill cholecalciferol (Vitamin D-3) 25 MCG (1000 UT) capsule Take by mouth. cyanocobalamin (Vitamin B-12) 1000 MCG tablet Take 1 tablet by mouth in the morning. ferrous sulfate 325 (65 Fe) MG tablet Take 325 mg by mouth. gabapentin (Neurontin) 100 MG capsule Take 100 mg by mouth. glimepiride (Amaryl) 1 MG tablet Take 1 mg by mouth daily (with breakfast). levothyroxine (Synthroid, Levoxyl) 25 MCG tablet Take 25 mcg by mouth in the morning. metoprolol succinate XL (Toprol-XL) 100 MG 24 hr tablet Take 100 mg by mouth in the morning. Multiple Vitamin (multivitamin) tablet Take 1 tablet by mouth daily. pantoprazole (ProtoNix) 40 MG EC tablet daily rosuvastatin (Crestor) 20 MG tablet Take 20 mg by mouth daily. sacubitril-valsartan (Entresto) 24-26 MG tablet Take 1 tablet by mouth in the morning and 1 tablet before bedtime. 180 tablet 1 sertraline (Zoloft) 25 MG tablet Take 25 mg by mouth in the morning. sucralfate (Carafate) 1 g tablet Take 1 g by mouth. tamsulosin (Flomax) 0.4 MG 24 hr capsule Take 1 capsule (0.4 mg) by mouth daily. 30 capsule 3 torsemide (Demadex) 20 MG tablet Take 2 tablets (40 mg) by mouth daily. Do not start before February 02, 2025. 60 tablet 3 [4] Allergies Allergen Reactions Atorvastatin Other reaction(s): Myalgia Latanoprost Other reaction(s): Blurring of visual image, Excessive tear production, Red eye Lovastatin Other reaction(s): Myalgia Other [5] Family History Problem Relation Name Age of Onset High Blood Pressure Father High Blood Pressure Mother documented in this [id number] History and physical note* Moises Adan MD - 02/10/2025 6:14 AM EDT Attending History and Physical Admit Date: 02/10/2025 PCP: Gibson Roth (Inactive) CHIEF COMPLAINT: Leg swelling Reason for Admission: Cellulitis lower extremity History Obtained From: patient, ER provider HISTORY OF PRESENT ILLNESS: Megan is a 84 y.o. male with past medical history significant for chronic congestive heart failure, diabetes, chronic kidney disease, GERD. Patient presented to the emergency room with complaint ofswelling and pain of the lower extremities. Patient has been noticing worsening redness over the course of the last several days. Patient denies any fever or chills. Patient recently was discharged from the hospital after he had treated for CHF exacerbation. Patient has been taking torsemide regularly. He denies any recent fall or injury. No fever no chills. Patient does have difficulty ambulating. Past Medical History: Medical History[1] Past Surgical History: Surgical History[2] Social History: Social History Socioeconomic History Marital status: Spouse name: Not on file Number of children: Not on file Years of education: Not on file Highest education level: Not on file Occupational History Not on file Tobacco Use Smoking status: Former Current packs/day: 0.00 Types: Cigarettes Quit date: 11/08/1999 Years since quittin.2 Smokeless tobacco: Never Substance and Sexual Activity Alcohol use: Yes Comment: occasionally Drug use: No Comment: caffeine:1-2 cups of coffee a day Sexual activity: Not on file Other Topics Concern Not on file Social History Narrative Not on file Social Drivers of Health Financial Resource Strain: Not on file Food Insecurity: Not on file Transportation Needs: Not on file Physical Activity: Not on file Stress: Not on file Social Connections: Not on file Intimate Partner Violence: Not At Risk (01/28/2025) Humiliation, Afraid, Rape, and Kick questionnaire Fear of Current or Ex-Partner: No Emotionally Abused: No Physically Abused: No Sexually Abused: No Housing Stability: Not on file Family History: Family History[3] Medications Prior to Admission: Current Medications[4] - Medications Reconciliation: Medication were reviewed and verified as accurate with patient. Allergies: Allergies[5] REVIEW OF SYSTEMS: Constitutional: Negative for fever, chills, activity change and unexpected weight change. HEENT: Negative for congestion, postnasal drip and sneezing. Eyes: Negative for itching and visual disturbance. Respiratory: Negative for apnea, cough, choking, chest tightness, shortness of breath, wheezing andstridor. Cardiovascular: Negative for chest pain. Gastrointestinal: Negative for nausea, vomiting, abdominal pain, diarrhea and blood in stool. Genitourinary: Negative for dysuria, frequency and flank pain. Musculoskeletal: Positive for pain and swelling of the legs Skin: Positive for redness in the lower extremities Neurological: Negative for dizziness, tremors, seizures, syncope, facial asymmetry, speech difficulty, weakness, numbness and headaches. Hematological: Negative for adenopathy. Psychiatric/Behavioral: Negative for suicidal ideas, behavioral problems, self- injury and dysphoricmood. Vitals: BP 133/74 Pulse 85 Temp 36.6 C (97.8 F) (Temporal) Resp 17 SpO2 98% BMI Classification: Pulse Ox: SpO2 Av % Min: 98 % Max: 98 % Supplemental O2: PHYSICAL EXAM: Constitutional: General: Patient is not in acute distress. Appearance: Normal appearance. HENT: Head: Normocephalic and atraumatic. Right Ear: External ear normal. Left Ear: External ear normal. Mouth/Throat: Mouth: Mucous membranes are moist. Pharynx: Oropharynx is clear. Eyes: Extraocular Movements: Extraocular movements intact. Conjunctiva/sclera: Conjunctivae normal. Pupils: Pupils are equal, round, and reactive to light. Cardiovascular: Comments: Regular rate and rhythm, normal S1-S2, no murmurs noted. Radial pulses 2+ and symmetric. Pulmonary: Effort: Pulmonary effort is normal. No respiratory distress. Breath sounds: Normal breath sounds. No stridor. No wheezing or rhonchi. Abdominal: Comments: The abdomen is soft, nondistended and nontender. There is no rebound tenderness or guarding. Bowel sounds are normal. Skin: General: Skin is warm and dry. Capillary Refill: Capillary refill takes less than 2 seconds. Coloration: Skin is not jaundiced or pale. Findings: Diffuse erythema anterolateral area bilateral lower extremity. Warmth is felt no crepitus Neurological: General: No focal deficit present. Mental Status: Patient is alert and oriented to person, place, and time. Mental status is at baseline. Cranial Nerves: No cranial nerve deficit. Sensory: No sensory deficit. Motor: No weakness. Coordination: Coordination normal. Psychiatric: Mood and Affect: Mood normal. Musculoskeletal: 1-2+ pitting edema bilateral lower extremities DATA: CBC: Recent Labs 02/10/25223 WBC 5.1 RBC 5.26 HGB 14.8 HCT 45.8 MCV 87.1 RDW 18.6* PLT 198 BMP: Recent Labs 02/10/25223 NA 141 K 3.9 CL 102 CO2 22* BUN 23 CREATININE 1.94* GLUCOSE 89 CALCIUM 8.7* ANIONGAP 17* LIVER PROFILE: Recent Labs 02/10/25223 AST 39* ALT 10 BILITOT 1.8* ALKPHOS 94 PROT 6.6 PT/INR: No results for input(s): PROTIME, INR in the last 72 hours. CARDIAC ENZYMES: No results for input(s): TROPONINI in the last 72 hours. Procalcitonin: No results found for: PROCAL Urine Culture: No results found for this or any previous visit. COVID-19 PCR: No results for input(s): COVID19 in the last 72 hours. I reviewed: [x] laboratory results [x] radiographic results At the time of today's encounter. Pt was advised of the results. Data: (CAT1) Reviewed 3 or more labs/studies ordered by another provider not previously counted (each=1, panels count as 1). (LOW: 2x CAT1 or independent historian MOD: 3x CAT1 or 1x CAT3 EXTENSIVE: 3x CAT1 and 1x CAT3) Assessment Discussed management with the ED provider and agree with hospitalization. Acute, acute on chronic, unstable/uncontrolled chronic problems/diagnoses: Cellulitis bilateral lower extremity Leg edema Leg pain Stable chronic problems affecting care, new non-acute diagnoses: Chronic congestive heart failure Chronic kidney disease Diabetes Gait disturbance Plan As a result of the above findings & factors, the following mgmt was pursued: - Plan to admit the patient to the medical floor Start the patient on cefepime 1 g IV every 8 Consult infectious disease specialist Resume medications from home Will do Rolo bandage wrap to the lower extremity which will help compression and hopefully elevate the leg swelling and promote the blood flow - am labs, replace lytes prn - PT/OT/CM/SW - delirium precautions: increase activity and limit nighttime disturbances - DVT prophylaxis: enoxaparin and encourage ambulation Complexity: Acute illness with systemic symptoms (MOD). Risk: Admission to hospital-level care was considered or occurred (HIGH). Advance Directive: Prior Anticipated Discharge - Date - 02/11/2025 - Location - Home - Pending the following -treatment for leg cellulitis Total time spent (which include face to face and non face to face encounters) : 60 minutes. Toxic drug monitoring/narrow therapeutic index drug monitoring : # Drug name : Lovenox # Route administered : Subcutaneous # Method of monitoring : CBC Extended Emergency Contact Information Primary Emergency Contact: AzamZuleyka Mobile Relation: Meter/Relay Craftsman Secondary Emergency Contact: Shaylee Nascimento Relation: Child [employer] Megan Nascimento : 1940 Primary Care Physician: Gibson Roth (Inactive) The patient and/or family/surrogate voluntarily agreed to participate in ACP services. Patient s cognitive capacity: Alert, Orientedx3 Code Status: [x_] [FULL CODE - Continue all advanced life support: CPR,intubation,invasive procedures] [_] [DNR-CCA - DO NOT do CPR, intubation] [_] [DNR-DATA CENTER SOLUTIONS ARCHITECT - Comfort care only] [_] DNR form [was/was not] signed Moises Adan MD Division of Hospitalist Medicine [facility] [1] Past Medical History: Diagnosis Date Acute HFrEF (heart failure with reduced ejection fraction) ([facility]) 09/22/2020 Bladder cancer (HCC) CHF (congestive heart failure) ([facility]) Chronic HFrEF (heart failure with reduced ejection fraction) ([facility]) 09/21/2020 Chronic kidney disease DM (diabetes mellitus) ([facility]) DM (diabetes mellitus) ([facility]) DVT (deep venous thrombosis) (HCC) ED (erectile dysfunction) Follicular non-Hodgkin's lymphoma (HCC) GERD (gastroesophageal reflux disease) GERD (gastroesophageal reflux disease) HTN (hypertension) HTN (hypertension) Hyperlipidemia Left bundle branch block 09/11/2020 Non-ischemic cardiomyopathy (CMS/HCC) (HCC) Presence of cardiac resynchronization therapy defibrillator (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) 01/17/2022 PUD (peptic ulcer disease) Pulmonary embolism (HCC) Pulmonary fibrosis (HCC) Rosacea Stage 3b chronic kidney disease (HCC) 09/21/2020 Tachycardia [2] Past Surgical History: Procedure Laterality Date BONE MARROW BIOPSY CARDIAC PACEMAKER PLACEMENT COLONOSCOPY COLONOSCOPY COSMETIC SURGERY face lift, rhinoplasty EYE SURGERY cataract removal FACIAL COSMETIC SURGERY LYMPH NODE BIOPSY SEPTOPLASTY SKIN BIOPSY VENTRICULAR CARDIAC PACEMAKER INSERTION 09/11/2020 Bi-V ICD [3] Family History Problem Relation Name Age of Onset High Blood Pressure Father High Blood Pressure Mother [4] Current Facility-Administered Medications: cefepime (Maxipime) 2,000 mg in sodium chloride 0.9 % 50 mL IVPB Mini-Bag Plus, 2,000 mg, IntraVENous, q8h, Latricia Landa DO, Stopped at 02/10/25 0421 vancomycin IVPB 1500 mg in 250 mL NS (premix), 1,500 mg, IntraVENous, Once, Latricia Landa DO, LastRate: 125 mL/hr at 02/10/25 0442, 1,500 mg at 02/10/25 0442 Current Outpatient Medications: cholecalciferol (Vitamin D-3) 25 MCG (1000 UT) capsule, Take by mouth., Disp: , Rfl: cyanocobalamin (Vitamin B-12) 1000 MCG tablet, Take 1 tablet by mouth in the morning., Disp: , Rfl: ferrous sulfate 325 (65 Fe) MG tablet, Take 325 mg by mouth., Disp: , Rfl: gabapentin (Neurontin) 100 MG capsule, Take 100 mg by mouth., Disp: , Rfl: glimepiride (Amaryl) 1 MG tablet, Take 1 mg by mouth daily (with breakfast)., Disp: , Rfl: levothyroxine (Synthroid, Levoxyl) 25 MCG tablet, Take 25 mcg by mouth in the morning., Disp: , Rfl: metoprolol succinate XL (Toprol-XL) 100 MG 24 hr tablet, Take 100 mg by mouth in the morning., Disp: , Rfl: Multiple Vitamin (multivitamin) tablet, Take 1 tablet by mouth daily., Disp: , Rfl: pantoprazole (ProtoNix) 40 MG EC tablet, daily, Disp: , Rfl: rosuvastatin (Crestor) 20 MG tablet, Take 20 mg by mouth daily., Disp: , Rfl: sacubitril-valsartan (Entresto) 24-26 MG tablet, Take 1 tablet by mouth in the morning and 1 tabletbefore bedtime., Disp: 180 tablet, Rfl: 1 sertraline (Zoloft) 25 MG tablet, Take 25 mg by mouth in the morning., Disp: , Rfl: sucralfate (Carafate) 1 g tablet, Take 1 g by mouth., Disp: , Rfl: tamsulosin (Flomax) 0.4 MG 24 hr capsule, Take 1 capsule (0.4 mg) by mouth daily., Disp: 30 capsule, Rfl: 3 torsemide (Demadex) 20 MG tablet, Take 2 tablets (40 mg) by mouth daily. Do not start before February 02, 2025., Disp: 60 tablet, Rfl: 3 [5] Allergies Allergen Reactions Atorvastatin Other reaction(s): Myalgia Latanoprost Other reaction(s): Blurring of visual image, Excessive tear production, Red eye Lovastatin Other reaction(s): Myalgia [id number] NoteAttending History and Physical Admit Date: 02/10/2025 PCP: Gibson Roth (Inactive) CHIEF COMPLAINT: Leg swelling Reason for Admission: Cellulitis lower extremity History Obtained From: patient, ER provider HISTORY OF PRESENT ILLNESS: Megan is a 84 y.o. male with past medical history significant for chronic congestive heart failure, diabetes, chronic kidney disease, GERD. Patient presented to the emergency room with complaint of swelling and pain of the lower extremities. Patient has been noticing worsening redness over the course of the last several days. Patient denies any fever or chills. Patient recently was discharged from the hospital after he had treated for CHF exacerbation. Patient has been taking torsemide regularly. He denies any recent fall or injury. No fever no chills. Patient does have difficulty ambulating. Past Medical History: Medical History[1] Past Surgical History: Surgical History[2] Social History: Social History Socioeconomic History Marital status: Spouse name: Not on file Number of children: Not on file Years of education: Not on file Highest education level: Not on file Occupational History Not on file Tobacco Use Smoking status: Former Current packs/day: 0.00 Types: Cigarettes Quit date: 11/08/1999 Years since quittin.2 Smokeless tobacco: Never Substance and Sexual Activity Alcohol use: Yes Comment: occasionally Drug use: No Comment: caffeine:1-2 cups of coffee a day Sexual activity: Not on file Other Topics Concern Not on file Social History Narrative Not on file Social Drivers of Health Financial Resource Strain: Not on file Food Insecurity: Not on file Transportation Needs: Not on file Physical Activity: Not on file Stress: Not on file Social Connections: Not on file Intimate Partner Violence: Not At Risk (01/28/2025) Humiliation, Afraid, Rape, and Kick questionnaire Fear of Current or Ex-Partner: No Emotionally Abused: No Physically Abused: No Sexually Abused: No Housing Stability: Not on file Family History: Family History[3] Medications Prior to Admission: Current Medications[4] - Medications Reconciliation: Medication were reviewed and verified as accurate with patient. Allergies: Allergies[5] REVIEW OF SYSTEMS: Constitutional: Negative for fever, chills, activity change and unexpected weight change. HEENT: Negative for congestion, postnasal drip and sneezing. Eyes: Negative for itching and visual disturbance. Respiratory: Negative for apnea, cough, choking, chest tightness, shortness of breath, wheezing and stridor. Cardiovascular: Negative for chest pain. Gastrointestinal: Negative for nausea, vomiting, abdominal pain, diarrhea and blood in stool. Genitourinary: Negative for dysuria, frequency and flank pain. Musculoskeletal: Positive for pain and swelling of the legs Skin: Positive for redness in the lower extremities Neurological: Negative for dizziness, tremors, seizures, syncope, facial asymmetry, speech difficulty, weakness, numbness and headaches. Hematological: Negative for adenopathy. Psychiatric/Behavioral: Negative for suicidal ideas, behavioral problems, self-injury and dysphoric mood. Vitals: BP 133/74 Pulse 85 Temp 36.6 ?C (97.8 ?F) (Temporal) Resp 17 SpO2 98% BMI Classification: Pulse Ox: SpO2 Av % Min: 98 % Max: 98 % Supplemental O2: PHYSICAL EXAM: Constitutional: General: Patient is not in acute distress. Appearance: Normal appearance. HENT: Head: Normocephalic and atraumatic. Right Ear: External ear normal. Left Ear: External ear normal. Mouth/Throat: Mouth: Mucous membranes are moist. Pharynx: Oropharynx is clear. Eyes: Extraocular Movements: Extraocular movements intact. Conjunctiva/sclera: Conjunctivae normal. Pupils: Pupils are equal, round, and reactive to light. Cardiovascular: Comments: Regular rate and rhythm, normal S1-S2, no murmurs noted. Radial pulses 2+ and symmetric. Pulmonary: Effort: Pulmonary effort is normal. No respiratory distress. Breath sounds: Normal breath sounds. No stridor. No wheezing or rhonchi. Abdominal: Comments: The abdomen is soft, nondistended and nontender. There is no rebound tenderness or guarding. Bowel sounds are normal. Skin: General: Skin is warm and dry. Capillary Refill: Capillary refill takes less than 2 seconds. Coloration: Skin is not jaundiced or pale. Findings: Diffuse erythema anterolateral area bilateral lower extremity. Warmth is felt no crepitus Neurological: General: No focal deficit present. Mental Status: Patient is alert and oriented to person, place, and time. Mental status is at baseline. Cranial Nerves: No cranial nerve deficit. Sensory: No sensory deficit. Motor: No weakness. Coordination: Coordination normal. Psychiatric: Mood and Affect: Mood normal. Musculoskeletal: 1-2+ pitting edema bilateral lower extremit (more content not included)...[facility]07-24-2025 History and physical note* Moises Adan MD - 02/10/2025 6:14 AM EDT Attending History and Physical Admit Date: 02/10/2025 PCP: Gibson Roth (Inactive) CHIEF COMPLAINT: Leg swelling Reason for Admission: Cellulitis lower extremity History Obtained From: patient, ER provider HISTORY OF PRESENT ILLNESS: Megan is a 84 y.o. male with past medical history significant for chronic congestive heart failure, diabetes, chronic kidney disease, GERD. Patient presented to the emergency room with complaint ofswelling and pain of the lower extremities. Patient has been noticing worsening redness over the course of the last several days. Patient denies any fever or chills. Patient recently was discharged from the hospital after he had treated for CHF exacerbation. Patient has been taking torsemide regularly. He denies any recent fall or injury. No fever no chills. Patient does have difficulty ambulating. Past Medical History: Medical History[1] Past Surgical History: Surgical History[2] Social History: Social History Socioeconomic History Marital status: Spouse name: Not on file Number of children: Not on file Years of education: Not on file Highest education level: Not on file Occupational History Not on file Tobacco Use Smoking status: Former Current packs/day: 0.00 Types: Cigarettes Quit date: 11/08/1999 Years since quittin.2 Smokeless tobacco: Never Substance and Sexual Activity Alcohol use: Yes Comment: occasionally Drug use: No Comment: caffeine:1-2 cups of coffee a day Sexual activity: Not on file Other Topics Concern Not on file Social History Narrative Not on file Social Drivers of Health Financial Resource Strain: Not on file Food Insecurity: Not on file Transportation Needs: Not on file Physical Activity: Not on file Stress: Not on file Social Connections: Not on file Intimate Partner Violence: Not At Risk (01/28/2025) Humiliation, Afraid, Rape, and Kick questionnaire Fear of Current or Ex-Partner: No Emotionally Abused: No Physically Abused: No Sexually Abused: No Housing Stability: Not on file Family History: Family History[3] Medications Prior to Admission: Current Medications[4] - Medications Reconciliation: Medication were reviewed and verified as accurate with patient. Allergies: Allergies[5] REVIEW OF SYSTEMS: Constitutional: Negative for fever, chills, activity change and unexpected weight change. HEENT: Negative for congestion, postnasal drip and sneezing. Eyes: Negative for itching and visual disturbance. Respiratory: Negative for apnea, cough, choking, chest tightness, shortness of breath, wheezing andstridor. Cardiovascular: Negative for chest pain. Gastrointestinal: Negative for nausea, vomiting, abdominal pain, diarrhea and blood in stool. Genitourinary: Negative for dysuria, frequency and flank pain. Musculoskeletal: Positive for pain and swelling of the legs Skin: Positive for redness in the lower extremities Neurological: Negative for dizziness, tremors, seizures, syncope, facial asymmetry, speech difficulty, weakness, numbness and headaches. Hematological: Negative for adenopathy. Psychiatric/Behavioral: Negative for suicidal ideas, behavioral problems, self- injury and dysphoricmood. Vitals: BP 133/74 Pulse 85 Temp 36.6 C (97.8 F) (Temporal) Resp 17 SpO2 98% BMI Classification: Pulse Ox: SpO2 Av % Min: 98 % Max: 98 % Supplemental O2: PHYSICAL EXAM: Constitutional: General: Patient is not in acute distress. Appearance: Normal appearance. HENT: Head: Normocephalic and atraumatic. Right Ear: External ear normal. Left Ear: External ear normal. Mouth/Throat: Mouth: Mucous membranes are moist. Pharynx: Oropharynx is clear. Eyes: Extraocular Movements: Extraocular movements intact. Conjunctiva/sclera: Conjunctivae normal. Pupils: Pupils are equal, round, and reactive to light. Cardiovascular: Comments: Regular rate and rhythm, normal S1-S2, no murmurs noted. Radial pulses 2+ and symmetric. Pulmonary: Effort: Pulmonary effort is normal. No respiratory distress. Breath sounds: Normal breath sounds. No stridor. No wheezing or rhonchi. Abdominal: Comments: The abdomen is soft, nondistended and nontender. There is no rebound tenderness or guarding. Bowel sounds are normal. Skin: General: Skin is warm and dry. Capillary Refill: Capillary refill takes less than 2 seconds. Coloration: Skin is not jaundiced or pale. Findings: Diffuse erythema anterolateral area bilateral lower extremity. Warmth is felt no crepitus Neurological: General: No focal deficit present. Mental Status: Patient is alert and oriented to person, place, and time. Mental status is at baseline. Cranial Nerves: No cranial nerve deficit. Sensory: No sensory deficit. Motor: No weakness. Coordination: Coordination normal. Psychiatric: Mood and Affect: Mood normal. Musculoskeletal: 1-2+ pitting edema bilateral lower extremities DATA: CBC: Recent Labs 02/10/25223 WBC 5.1 RBC 5.26 HGB 14.8 HCT 45.8 MCV 87.1 RDW 18.6* PLT 198 BMP: Recent Labs 02/10/25223 NA 141 K 3.9 CL 102 CO2 22* BUN 23 CREATININE 1.94* GLUCOSE 89 CALCIUM 8.7* ANIONGAP 17* LIVER PROFILE: Recent Labs 07/24/25 0224 AST 39* ALT 10 BILITOT 1.8* ALKPHOS 94 PROT 6.6 PT/INR: No results for input(s): PROTIME, INR in the last 72 hours. CARDIAC ENZYMES: No results for input(s): TROPONINI in the last 72 hours. Procalcitonin: No results found for: PROCAL Urine Culture: No results found for this or any previous visit. COVID-19 PCR: No results for input(s): COVID19 in the last 72 hours. I reviewed: [x] laboratory results [x] radiographic results At the time of today's encounter. Pt was advised of the results. Data: (CAT1) Reviewed 3 or more labs/studies ordered by another provider not previously counted (each=1, panels count as 1). (LOW: 2x CAT1 or independent historian MOD: 3x CAT1 or 1x CAT3 EXTENSIVE: 3x CAT1 and 1x CAT3) Assessment Discussed management with the ED provider and agree with hospitalization. Acute, acute on chronic, unstable/uncontrolled chronic problems/diagnoses: Cellulitis bilateral lower extremity Leg edema Leg pain Stable chronic problems affecting care, new non-acute diagnoses: Chronic congestive heart failure Chronic kidney disease Diabetes Gait disturbance Plan As a result of the above findings & factors, the following mgmt was pursued: - Plan to admit the patient to the medical floor Start the patient on cefepime 1 g IV every 8 Consult infectious disease specialist Resume medications from home Will do Rolo bandage wrap to the lower extremity which will help compression and hopefully elevate the leg swelling and promote the blood flow - am labs, replace lytes prn - PT/OT/CM/SW - delirium precautions: increase activity and limit nighttime disturbances - DVT prophylaxis: enoxaparin and encourage ambulation Complexity: Acute illness with systemic symptoms (MOD). Risk: Admission to hospital-level care was considered or occurred (HIGH). Advance Directive: Prior Anticipated Discharge - Date - 02/11/2025 - Location - Home - Pending the following -treatment for leg cellulitis Total time spent (which include face to face and non face to face encounters) : 60 minutes. Toxic drug monitoring/narrow therapeutic index drug monitoring : # Drug name : Lovenox # Route administered : Subcutaneous # Method of monitoring : CBC Extended Emergency Contact Information Primary Emergency Contact: AzamZuleyka Mobile Relation: Meter/Relay Craftsman Secondary Emergency Contact: Shaylee Nascimento Relation: Child [employer] Megan Nascimento : 1940 Primary Care Physician: Gibson Roth (Inactive) The patient and/or family/surrogate voluntarily agreed to participate in ACP services. Patient s cognitive capacity: Alert, Orientedx3 Code Status: [x_] [FULL CODE - Continue all advanced life support: CPR,intubation,invasive procedures] [_] [DNR-CCA - DO NOT do CPR, intubation] [_] [DNR-DATA CENTER SOLUTIONS ARCHITECT - Comfort care only] [_] DNR form [was/was not] signed Moises Adan MD [facility] Medicine [facility] [1] Past Medical History: Diagnosis Date Acute HFrEF (heart failure with reduced ejection fraction) (HCC) 09/22/2020 Bladder cancer (HCC) CHF (congestive heart failure) (HCC) Chronic HFrEF (heart failure with reduced ejection fraction) ([facility]) 09/21/2020 Chronic kidney disease DM (diabetes mellitus) (HCC) DM (diabetes mellitus) (HCC) DVT (deep venous thrombosis) (HCC) ED (erectile dysfunction) Follicular non-Hodgkin's lymphoma (HCC) GERD (gastroesophageal reflux disease) GERD (gastroesophageal reflux disease) HTN (hypertension) HTN (hypertension) Hyperlipidemia Left bundle branch block 09/11/2020 Non-ischemic cardiomyopathy (CMS/HCC) (HCC) Presence of cardiac resynchronization therapy defibrillator (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) 01/17/2022 PUD (peptic ulcer disease) Pulmonary embolism (HCC) Pulmonary fibrosis (HCC) Rosacea Stage 3b chronic kidney disease (HCC) 09/21/2020 Tachycardia [2] Past Surgical History: Procedure Laterality Date BONE MARROW BIOPSY CARDIAC PACEMAKER PLACEMENT COLONOSCOPY COLONOSCOPY COSMETIC SURGERY face lift, rhinoplasty EYE SURGERY cataract removal FACIAL COSMETIC SURGERY LYMPH NODE BIOPSY SEPTOPLASTY SKIN BIOPSY VENTRICULAR CARDIAC PACEMAKER INSERTION 09/11/2020 Bi-V ICD [3] Family History Problem Relation Name Age of Onset High Blood Pressure Father High Blood Pressure Mother [4] Current Facility-Administered Medications: cefepime (Maxipime) 2,000 mg in sodium chloride 0.9 % 50 mL IVPB Mini-Bag Plus, 2,000 mg, IntraVENous, q8h, Latricia Landa DO, Stopped at 02/10/25 042 vancomycin IVPB 1500 mg in 250 mL NS (premix), 1,500 mg, IntraVENous, Once, Latricia Landa DO, LastRate: 125 mL/hr at 02/10/25441, 1,500 mg at 02/10/25441 Current Outpatient Medications: cholecalciferol (Vitamin D-3) 25 MCG (1000 UT) capsule, Take by mouth., Disp: , Rfl: cyanocobalamin (Vitamin B-12) 1000 MCG tablet, Take 1 tablet by mouth in the morning., Disp: , Rfl: ferrous sulfate 325 (65 Fe) MG tablet, Take 325 mg by mouth., Disp: , Rfl: gabapentin (Neurontin) 100 MG capsule, Take 100 mg by mouth., Disp: , Rfl: glimepiride (Amaryl) 1 MG tablet, Take 1 mg by mouth daily (with breakfast)., Disp: , Rfl: levothyroxine (Synthroid, Levoxyl) 25 MCG tablet, Take 25 mcg by mouth in the morning., Disp: , Rfl: metoprolol succinate XL (Toprol-XL) 100 MG 24 hr tablet, Take 100 mg by mouth in the morning., Disp: , Rfl: Multiple Vitamin (multivitamin) tablet, Take 1 tablet by mouth daily., Disp: , Rfl: pantoprazole (ProtoNix) 40 MG EC tablet, daily, Disp: , Rfl: rosuvastatin (Crestor) 20 MG tablet, Take 20 mg by mouth daily., Disp: , Rfl: sacubitril-valsartan (Entresto) 24-26 MG tablet, Take 1 tablet by mouth in the morning and 1 tabletbefore bedtime., Disp: 180 tablet, Rfl: 1 sertraline (Zoloft) 25 MG tablet, Take 25 mg by mouth in the morning., Disp: , Rfl: sucralfate (Carafate) 1 g tablet, Take 1 g by mouth., Disp: , Rfl: tamsulosin (Flomax) 0.4 MG 24 hr capsule, Take 1 capsule (0.4 mg) by mouth daily., Disp: 30 capsule, Rfl: 3 torsemide (Demadex) 20 MG tablet, Take 2 tablets (40 mg) by mouth daily. Do not start before February 02, 2025., Disp: 60 tablet, Rfl: 3 [5] Allergies Allergen Reactions Atorvastatin Other reaction(s): Myalgia Latanoprost Other reaction(s): Blurring of visual image, Excessive tear production, Red eye Lovastatin Other reaction(s): Myalgia Other documented in this [facility]07-24-2025 Emergency department Note* Latricia Landa DO - 02/10/2025 1:31 AM EDT EMERGENCY DEPARTMENT ENCOUNTER Pt Name: Megan Nascimento Birthdate 1940 Date of evaluation: 02/10/2025 ED Provider: Latricia Landa DO CHIEF COMPLAINT Chief Complaint Patient presents with Leg Swelling Pt coming in for BLE swelling & redness since being discharged from inpatient for CHF exacerbation about 1 week ago HISTORY OF PRESENT ILLNESS (Location/Symptom, Timing/Onset, Context/Setting, Quality, Duration, Modifying Factors, Severity) Note limiting factors. I wore appropriate PPE for the entirety of this encounter. HPI Megan Nascimento is a 84 y.o. male CHF (12% ) status post AICD, PE/DVT, CKD 3, hypertension, hyperlipidemia, diabetes who presents to the emergency department complaint of progressively enlarging burning bilateral anterior claros redness over the last several days. Recent admission for CHF exacerbation 01/28 through , discharged on Torsemide 40 mg. Ports compliance with prescribed medications. Reports that lower extremity swelling continues to improve. States that he is losing weight every day when he weighs himself on scale. Weight 182.4 last night. Denies fevers or chills, nausea/vomiting, chest pain, shortness of breath, peripheral numbness /tingling/weakness. Nursing Notes were reviewed. Limitations to history: None Outside historians: None and Family daughter REVIEW OF SYSTEMS Review of Systems Negative except per HPI PAST MEDICAL HISTORY Medical History[1] SURGICAL HISTORY Surgical History[2] CURRENT MEDICATIONS Previous Medications CHOLECALCIFEROL (VITAMIN D-3) 25 MCG (1000 UT) CAPSULE Take by mouth. CYANOCOBALAMIN (VITAMIN B-12) 1000 MCG TABLET Take 1 tablet by mouth in the morning. FERROUS SULFATE 325 (65 FE) MG TABLET Take 325 mg by mouth. GABAPENTIN (NEURONTIN) 100 MG CAPSULE Take 100 mg by mouth. GLIMEPIRIDE (AMARYL) 1 MG TABLET Take 1 mg by mouth daily (with breakfast). LEVOTHYROXINE (SYNTHROID, LEVOXYL) 25 MCG TABLET Take 25 mcg by mouth in the morning. METOPROLOL SUCCINATE XL (TOPROL-XL) 100 MG 24 HR TABLET Take 100 mg by mouth in the morning. MULTIPLE VITAMIN (MULTIVITAMIN) TABLET Take 1 tablet by mouth daily. PANTOPRAZOLE (PROTONIX) 40 MG EC TABLET daily ROSUVASTATIN (CRESTOR) 20 MG TABLET Take 20 mg by mouth daily. SACUBITRIL-VALSARTAN (ENTRESTO) 24-26 MG TABLET Take 1 tablet by mouth in the morning and 1 tablet before bedtime. SERTRALINE (ZOLOFT) 25 MG TABLET Take 25 mg by mouth in the morning. SUCRALFATE (CARAFATE) 1 G TABLET Take 1 g by mouth. TAMSULOSIN (FLOMAX) 0.4 MG 24 HR CAPSULE Take 1 capsule (0.4 mg) by mouth daily. TORSEMIDE (DEMADEX) 20 MG TABLET Take 2 tablets (40 mg) by mouth daily. Do not start before February 02, 2025. ALLERGIES Atorvastatin, Latanoprost, Lovastatin, and Other FAMILY HISTORY Family History[3] SOCIAL HISTORY Social History[4] SCREENINGS PHYSICAL EXAM ED Triage Vitals [02/10/25 0134] Temp Heart Rate Resp BP 36.6 C (97.8 F) 85 17 133/74 SpO2 Temp Source Heart Rate Source Patient Position 98 % Temporal Monitor -- BP Location FiO2 (%) -- -- Physical Exam BP 133/74 Pulse 85 Temp 36.6 C (97.8 F) (Temporal) Resp 17 SpO2 98% Lower Extremity Exam: Sharply demarcated ragged bordered warm cellulitic changes noted bilateral anterior shins. No fluctuance to suggest abscess. No crepitus. No obvious deformity. 1+ pitting edema bilateral lower extremities. ROM is intact. 5/5 strength to hip flexors, hip extensors, knee flexion, knee extension, dorsiflexion, plantarflexion, EHL of great toe. Distal capillary refill takes lessthan 2 seconds. DP, PT pulses are 2+ bilaterally. Distal sensation and motor intact. DIAGNOSTIC RESULTS LABS: Labs Reviewed CBC (HEMOGRAM) - Abnormal Result Value Auto WBC 5.1 RBC 5.26 Hemoglobin 14.8 Hematocrit 45.8 MCV 87.1 MCH 28.1 MCHC 32.3 RDW 18.6 (*) Platelets 198 MPV 10.7 COMPREHENSIVE METABOLIC PANEL - Abnormal SODIUM 141 POTASSIUM 3.9 CHLORIDE 102 CARBON DIOXIDE 22 (*) ANION GAP 17 (*) UREA NITROGEN 23 CREATININE 1.94 (*) GLUCOSE 89 CALCIUM 8.7 (*) AST (SGOT) 39 (*) ALT 10 ALKALINE PHOSPHATASE 94 ALBUMIN 3.4 BILIRUBIN, TOTAL 1.8 (*) TOTAL PROTEIN 6.6 eGFR 33.3 (*) NT PRO BNP - Abnormal NT PRO BNP >30,000 (*) LACTIC ACID WITH REFLEX - Normal LACTIC ACID 2.0 All other labs were within normal range or not returned as of this dictation. EMERGENCY DEPARTMENT COURSE and DIFFERENTIAL DIAGNOSIS/MDM: Vitals: Vitals: 02/10/25 0134 BP: 133/74 Pulse: 85 Resp: 17 Temp: 36.6 C (97.8 F) TempSrc: Temporal SpO2: 98% 84 y.o. male CHF (12% ) status post AICD, PE/DVT, CKD 3, hypertension, hyperlipidemia, diabetes whopresents to the emergency department complaint of progressively enlarging burning bilateral anterior claros redness over the last several days. Recent admission for CHF exacerbation 01/28 through , discharged on Torsemide 40 mg. Reports compliance with prescribed medications. Reports that lower extremity swelling continues to improve. States that he is losing weight every day when he weighs himself on scale. Weight 182.4 last night. Denies fevers or chills, nausea/vomiting, chest pain, shortness of breath, peripheral numbne ss/tingling/weakness. Lower extremity exam consistent with cellulitis. Sharply demarcated indurated ragged bordered erythema bilateral anterior shins without extension into posterior lower leg. Cellulitic changes do not overlie joint. No joint swelling or redness to suggest septic arthritis. Bilateral lower extremities n eurovascularly intact. Labs without leukocytosis but lactic acid mildly elevated (2). BNP elevated at hospital discharge despite patient reporting fluid overload symptoms improved. Vancomycin and cefepime ordered for cellulitis. Patient admitted for continued IV antibiotics. ED Medications managed: Medications vancomycin IVPB 1500 mg in 250 mL NS (premix) (1,500 mg IntraVENous New Bag 02/10/25 5892) cefepime (Maxipime) 2,000 mg in sodium chloride 0.9 % 50 mL IVPB Mini-Bag Plus (0 mg IntraVENous Stopped 02/10/25 0421) FINAL IMPRESSION 1. Cellulitis of lower extremity, unspecified laterality DISPOSITION Observation 02/10/2025 03:50:47 AM PATIENT REFERRED TO: No follow-up provider specified. DISCHARGE MEDICATIONS: New Prescriptions No medications on file (Comment: Please note this report has been produced using speech recognition software and may contain errors related to that system including errors in grammar, punctuation, and spelling, as well as words and phrases that may be inappropriate. If there are any questions or concerns please feel freeto contact the dictating provider for clarification.) Latricia Landa DO (electronically signed) Emergency Medicine Provider [1] Past Medical History: Diagnosis Date Acute HFrEF (heart failure with reduced ejection fraction) ([facility]) 09/22/2020 Bladder cancer ([facility]) CHF (congestive heart failure) ([facility]) Chronic HFrEF (heart failure with reduced ejection fraction) ([facility]) 09/21/2020 Chronic kidney disease DM (diabetes mellitus) ([facility]) DM (diabetes mellitus) ([facility]) DVT (deep venous thrombosis) ([facility]) ED (erectile dysfunction) Follicular non-Hodgkin's lymphoma ([facility]) GERD (gastroesophageal reflux disease) GERD (gastroesophageal reflux disease) HTN (hypertension) HTN (hypertension) Hyperlipidemia Left bundle branch block 09/11/2020 Non-ischemic cardiomyopathy (CMS/HCC) ([facility]) Presence of cardiac resynchronization therapy defibrillator (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) 01/17/2022 PUD (peptic ulcer disease) Pulmonary embolism ([facility]) Pulmonary fibrosis ([facility]) Rosacea Stage 3b chronic kidney disease ([facility]) 09/21/2020 Tachycardia [2] Past Surgical History: Procedure Laterality Date BONE MARROW BIOPSY CARDIAC PACEMAKER PLACEMENT COLONOSCOPY COLONOSCOPY COSMETIC SURGERY face lift, rhinoplasty EYE SURGERY cataract removal FACIAL COSMETIC SURGERY LYMPH NODE BIOPSY SEPTOPLASTY SKIN BIOPSY VENTRICULAR CARDIAC PACEMAKER INSERTION 09/11/2020 Bi-V ICD [3] Family History Problem Relation Name Age of Onset High Blood Pressure Father High Blood Pressure Mother [4] Social History Socioeconomic History Marital status: Tobacco Use Smoking status: Former Current packs/day: 0.00 Types: Cigarettes Quit date: 11/08/1999 Years since quittin.2 Smokeless tobacco: Never Substance and Sexual Activity Alcohol use: Yes Comment: occasionally Drug use: No Comment: caffeine:1-2 cups of coffee a day Social Drivers of Health Intimate Partner Violence: Not At Risk (01/28/2025) Humiliation, Afraid, Rape, and Kick questionnaire Fear of Current or Ex-Partner: No Emotionally Abused: No Physically Abused: No Sexually Abused: No Latricia Landa DO 02/10/25 0551 documented in this [facility]07-24-2025 Physician Emergency department Note* Latricia Landa DO - 02/10/2025 1:31 AM EDT EMERGENCY DEPARTMENT ENCOUNTER Pt Name: Megan Nascimento Birthdate 1940 Date of evaluation: 02/10/2025 ED Provider: Latricia Landa DO CHIEF COMPLAINT Chief Complaint Patient presents with Leg Swelling Pt coming in for BLE swelling & redness since being discharged from inpatient for CHF exacerbation about 1 week ago HISTORY OF PRESENT ILLNESS (Location/Symptom, Timing/Onset, Context/Setting, Quality, Duration, Modifying Factors, Severity) Note limiting factors. I wore appropriate PPE for the entirety of this encounter. HPI Megan Nascimento is a 84 y.o. male CHF (12% ) status post AICD, PE/DVT, CKD 3, hypertension, hyperlipidemia, diabetes who presents to the emergency department complaint of progressively enlarging burning bilateral anterior claros redness over the last several days. Recent admission for CHF exacerbation 01/28 through , discharged on Torsemide 40 mg. Ports compliance with prescribed medications. Reports that lower extremity swelling continues to improve. States that he is losing weight every day when he weighs himself on scale. Weight 182.4 last night. Denies fevers or chills, nausea/vomiting, chest pain, shortness of breath, peripheral numbness /tingling/weakness. Nursing Notes were reviewed. Limitations to history: None Outside historians: None and Family daughter REVIEW OF SYSTEMS Review of Systems Negative except per HPI PAST MEDICAL HISTORY Medical History[1] SURGICAL HISTORY Surgical History[2] CURRENT MEDICATIONS Previous Medications CHOLECALCIFEROL (VITAMIN D-3) 25 MCG (1000 UT) CAPSULE Take by mouth. CYANOCOBALAMIN (VITAMIN B-12) 1000 MCG TABLET Take 1 tablet by mouth in the morning. FERROUS SULFATE 325 (65 FE) MG TABLET Take 325 mg by mouth. GABAPENTIN (NEURONTIN) 100 MG CAPSULE Take 100 mg by mouth. GLIMEPIRIDE (AMARYL) 1 MG TABLET Take 1 mg by mouth daily (with breakfast). LEVOTHYROXINE (SYNTHROID, LEVOXYL) 25 MCG TABLET Take 25 mcg by mouth in the morning. METOPROLOL SUCCINATE XL (TOPROL-XL) 100 MG 24 HR TABLET Take 100 mg by mouth in the morning. MULTIPLE VITAMIN (MULTIVITAMIN) TABLET Take 1 tablet by mouth daily. PANTOPRAZOLE (PROTONIX) 40 MG EC TABLET daily ROSUVASTATIN (CRESTOR) 20 MG TABLET Take 20 mg by mouth daily. SACUBITRIL-VALSARTAN (ENTRESTO) 24-26 MG TABLET Take 1 tablet by mouth in the morning and 1 tablet before bedtime. SERTRALINE (ZOLOFT) 25 MG TABLET Take 25 mg by mouth in the morning. SUCRALFATE (CARAFATE) 1 G TABLET Take 1 g by mouth. TAMSULOSIN (FLOMAX) 0.4 MG 24 HR CAPSULE Take 1 capsule (0.4 mg) by mouth daily. TORSEMIDE (DEMADEX) 20 MG TABLET Take 2 tablets (40 mg) by mouth daily. Do not start before February 02, 2025. ALLERGIES Atorvastatin, Latanoprost, Lovastatin, and Other FAMILY HISTORY Family History[3] SOCIAL HISTORY Social History[4] SCREENINGS PHYSICAL EXAM ED Triage Vitals [02/10/25 0134] Temp Heart Rate Resp BP 36.6 C (97.8 F) 85 17 133/74 SpO2 Temp Source Heart Rate Source Patient Position 98 % Temporal Monitor -- BP Location FiO2 (%) -- -- Physical Exam BP 133/74 Pulse 85 Temp 36.6 C (97.8 F) (Temporal) Resp 17 SpO2 98% Lower Extremity Exam: Sharply demarcated ragged bordered warm cellulitic changes noted bilateral anterior shins. No fluctuance to suggest abscess. No crepitus. No obvious deformity. 1+ pitting edema bilateral lower extremities. ROM is intact. 5/5 strength to hip flexors, hip extensors, knee flexion, knee extension, dorsiflexion, plantarflexion, EHL of great toe. Distal capillary refill takes lessthan 2 seconds. DP, PT pulses are 2+ bilaterally. Distal sensation and motor intact. DIAGNOSTIC RESULTS LABS: Labs Reviewed CBC (HEMOGRAM) - Abnormal Result Value Auto WBC 5.1 RBC 5.26 Hemoglobin 14.8 Hematocrit 45.8 MCV 87.1 MCH 28.1 MCHC 32.3 RDW 18.6 (*) Platelets 198 MPV 10.7 COMPREHENSIVE METABOLIC PANEL - Abnormal SODIUM 141 POTASSIUM 3.9 CHLORIDE 102 CARBON DIOXIDE 22 (*) ANION GAP 17 (*) UREA NITROGEN 23 CREATININE 1.94 (*) GLUCOSE 89 CALCIUM 8.7 (*) AST (SGOT) 39 (*) ALT 10 ALKALINE PHOSPHATASE 94 ALBUMIN 3.4 BILIRUBIN, TOTAL 1.8 (*) TOTAL PROTEIN 6.6 eGFR 33.3 (*) NT PRO BNP - Abnormal NT PRO BNP >30,000 (*) LACTIC ACID WITH REFLEX - Normal LACTIC ACID 2.0 All other labs were within normal range or not returned as of this dictation. EMERGENCY DEPARTMENT COURSE and DIFFERENTIAL DIAGNOSIS/MDM: Vitals: Vitals: 02/10/25 0134 BP: 133/74 Pulse: 85 Resp: 17 Temp: 36.6 C (97.8 F) TempSrc: Temporal SpO2: 98% 84 y.o. male CHF (12% ) status post AICD, PE/DVT, CKD 3, hypertension, hyperlipidemia, diabetes whopresents to the emergency department complaint of progressively enlarging burning bilateral anterior claros redness over the last several days. Recent admission for CHF exacerbation 01/28 through , discharged on Torsemide 40 mg. Reports compliance with prescribed medications. Reports that lower extremity swelling continues to improve. States that he is losing weight every day when he weighs himself on scale. Weight 182.4 last night. Denies fevers or chills, nausea/vomiting, chest pain, shortness of breath, peripheral numbne ss/tingling/weakness. Lower extremity exam consistent with cellulitis. Sharply demarcated indurated ragged bordered erythema bilateral anterior shins without extension into posterior lower leg. Cellulitic changes do not overlie joint. No joint swelling or redness to suggest septic arthritis. Bilateral lower extremities n eurovascularly intact. Labs without leukocytosis but lactic acid mildly elevated (2). BNP elevated at hospital discharge despite patient reporting fluid overload symptoms improved. Vancomycin and cefepime ordered for cellulitis. Patient admitted for continued IV antibiotics. ED Medications managed: Medications vancomycin IVPB 1500 mg in 250 mL NS (premix) (1,500 mg IntraVENous New Bag 02/10/25 4892) cefepime (Maxipime) 2,000 mg in sodium chloride 0.9 % 50 mL IVPB Mini-Bag Plus (0 mg IntraVENous Stopped 02/10/25 0421) FINAL IMPRESSION 1. Cellulitis of lower extremity, unspecified laterality DISPOSITION Observation 02/10/2025 03:50:47 AM PATIENT REFERRED TO: No follow-up provider specified. DISCHARGE MEDICATIONS: New Prescriptions No medications on file (Comment: Please note this report has been produced using speech recognition software and may contain errors related to that system including errors in grammar, punctuation, and spelling, as well as words and phrases that may be inappropriate. If there are any questions or concerns please feel freeto contact the dictating provider for clarification.) Latricia Landa DO (electronically signed) Emergency Medicine Provider [1] Past Medical History: Diagnosis Date Acute HFrEF (heart failure with reduced ejection fraction) ([facility]) 09/22/2020 Bladder cancer ([facility]) CHF (congestive heart failure) ([facility]) Chronic HFrEF (heart failure with reduced ejection fraction) ([facility]) 09/21/2020 Chronic kidney disease DM (diabetes mellitus) ([facility]) DM (diabetes mellitus) ([facility]) DVT (deep venous thrombosis) ([facility]) ED (erectile dysfunction) Follicular non-Hodgkin's lymphoma ([facility]) GERD (gastroesophageal reflux disease) GERD (gastroesophageal reflux disease) HTN (hypertension) HTN (hypertension) Hyperlipidemia Left bundle branch block 09/11/2020 Non-ischemic cardiomyopathy (CMS/HCC) ([facility]) Presence of cardiac resynchronization therapy defibrillator (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) 01/17/2022 PUD (peptic ulcer disease) Pulmonary embolism ([facility]) Pulmonary fibrosis ([facility]) Rosacea Stage 3b chronic kidney disease ([facility]) 09/21/2020 Tachycardia [2] Past Surgical History: Procedure Laterality Date BONE MARROW BIOPSY CARDIAC PACEMAKER PLACEMENT COLONOSCOPY COLONOSCOPY COSMETIC SURGERY face lift, rhinoplasty EYE SURGERY cataract removal FACIAL COSMETIC SURGERY LYMPH NODE BIOPSY SEPTOPLASTY SKIN BIOPSY VENTRICULAR CARDIAC PACEMAKER INSERTION 09/11/2020 Bi-V ICD [3] Family History Problem Relation Name Age of Onset High Blood Pressure Father High Blood Pressure Mother [4] Social History Socioeconomic History Marital status: Tobacco Use Smoking status: Former Current packs/day: 0.00 Types: Cigarettes Quit date: 11/08/1999 Years since quittin.2 Smokeless tobacco: Never Substance and Sexual Activity Alcohol use: Yes Comment: occasionally Drug use: No Comment: caffeine:1-2 cups of coffee a day Social Drivers of Health Intimate Partner Violence: Not At Risk (01/28/2025) Humiliation, Afraid, Rape, and Kick questionnaire Fear of Current or Ex-Partner: No Emotionally Abused: No Physically Abused: No Sexually Abused: No Latricia Landa DO 02/10/25 0551 [id number] Telephone encounter Note* Telephone Encounter - Bipin Givens RN - 02/07/2025 1:50 PM EDT TC to Pt No answer LVM [facility] [id number] Miscellaneous Notes* Telephone Encounter - Bipin Givens RN - 02/07/2025 1:50 PM EDT TC to Pt No answer LVM * Telephone Encounter - Marisol Kim - 02/07/2025 1:32 PM EDT Patient left message saying he had a question about meds * Telephone Encounter - Bipin Givens RN - 02/07/2025 8:35 AM EDT Per Marcela Rosado Pt can continue the Dupixent No answer LVM explaining this as VM states full name * Telephone Encounter - Bipin Givens RN - 02/04/2025 2:28 PM EDT Heart Failure Clinic Discharge Call Discharge Date 02/01/25 Patient was called today as a hospital discharge follow up phone call. The following represents a summary of the call. Do you feel as good as you did when you left the hospital? Are you able to do some activities of daily living? yes, yes Have you had any healthcare appointments since discharge? If yes, did they change any medications? no Have you missed any of your pills since discharge? Medication list reviewed and consistent with discharge EMR. no, consistent Do you have a scale/Are you doing daily weights/Any changes in weight? Yes today Pt #185 yesterday 185.2# Do you have any symptoms of volume overload? (SOB, abdominal bloating/fullness, ankle/leg swelling/orthopnea) or dehydration? A little SOB, a little BLE swelling- comes and goes but has been rushing around. No other s/s How are you doing on your low sodium/salt diet? yes Do you have any questions;concerns? Pt is wondering is he is allow to continue his Dupixent Confirm next OV or when you will call again. RP 02/15/25 1430 Pt verbalizes understanding. * Telephone Encounter - Nidia Garcia - 02/04/2025 2:14 PM EDT Patient called and was returning your phone call * Telephone Encounter - Bipin Givens RN - 02/04/2025 2:02 PM EDT TC to Pt no answer LVM * Telephone Encounter - CHLOE Manuel CNP - 02/04/2025 8:35 AM EDT Discharged with heart failure. Needs 72 hour post discharge phone call. documented in this [facility]07-21-2025 Telephone encounter Note* Telephone Encounter - Marisol Kim - 02/07/2025 1:32 PM EDT Patient left message saying he had a question about meds [facility] [id number] Telephone encounter Note* Telephone Encounter - Bipin Givens RN - 02/07/2025 8:35 AM EDT Per Marcela Rosado Pt can continue the Dupixent No answer LVM explaining this as VM states full name [facility] [id number] Telephone encounter Note* Telephone Encounter - Bipin Givens RN - 02/04/2025 2:28 PM EDT Heart Failure Clinic Discharge Call Discharge Date 02/01/25 Patient was called today as a hospital discharge follow up phone call. The following represents a summary of the call. Do you feel as good as you did when you left the hospital? Are you able to do some activities of daily living? yes, yes Have you had any healthcare appointments since discharge? If yes, did they change any medications? no Have you missed any of your pills since discharge? Medication list reviewed and consistent with discharge EMR. no, consistent Do you have a scale/Are you doing daily weights/Any changes in weight? Yes today Pt #185 yesterday 185.2# Do you have any symptoms of volume overload? (SOB, abdominal bloating/fullness, ankle/leg swelling/orthopnea) or dehydration? A little SOB, a little BLE swelling- comes and goes but has been rushing around. No other s/s How are you doing on your low sodium/salt diet? yes Do you have any questions;concerns? Pt is wondering is he is allow to continue his Dupixent Confirm next OV or when you will call again. 02/15/25 1430 Pt verbalizes understanding. [place] [id number] Miscellaneous Notes* Telephone Encounter - Bipin Givens RN - 02/04/2025 2:28 PM EDT Heart Failure Clinic Discharge Call Discharge Date 02/01/25 Patient was called today as a hospital discharge follow up phone call. The following represents a summary of the call. Do you feel as good as you did when you left the hospital? Are you able to do some activities of daily living? yes, yes Have you had any healthcare appointments since discharge? If yes, did they change any medications? no Have you missed any of your pills since discharge? Medication list reviewed and consistent with discharge EMR. no, consistent Do you have a scale/Are you doing daily weights/Any changes in weight? Yes today Pt #185 yesterday 185.2# Do you have any symptoms of volume overload? (SOB, abdominal bloating/fullness, ankle/leg swelling/orthopnea) or dehydration? A little SOB, a little BLE swelling- comes and goes but has been rushing around. No other s/s How are you doing on your low sodium/salt diet? yes Do you have any questions;concerns? Pt is wondering is he is allow to continue his Dupixent Confirm next OV or when you will call again. RP 02/15/25 1430 Pt verbalizes understanding. * Telephone Encounter - Nidia Garcia - 02/04/2025 2:14 PM EDT Patient called and was returning your phone call * Telephone Encounter - Bipin Givens RN - 02/04/2025 2:02 PM EDT TC to Pt no answer LVM * Telephone Encounter - CHLOE Manuel CNP - 02/04/2025 8:35 AM EDT Discharged with heart failure. Needs 72 hour post discharge phone call. documented in this [facility]SK[facility] [id number] Telephone encounter Note* Telephone Encounter - Nidia Garcia - 02/04/2025 2:14 PM EDT Patient called and was returning your phone call [id number] Telephone encounter Note* Telephone Encounter - Bipin Givens RN - 02/04/2025 2:02 PM EDT TC to Pt no answer LVM [address] [id number] NoteChart reviewed. Attempted to contact patient for transitional outreach. No answer. Left VM requesting a return call back. Future outreach scheduled.[facility]07-18-2025 Telephone encounter Note* Telephone Encounter - CHLOE Manuel CNP - 02/04/2025 8:35 AM EDT Discharged with heart failure. Needs 72 hour post discharge phone call. [facility] [employer] Phone: [phone] 723-656807-16-2025 NoteFollowing patient for transitions. Received notification of patient's discharge home on 02/01 with MIRI via discharge report in [facility]. Future transitional outreach scheduled.[facility]07-15-2025 Nurse Note* Randy Cornelius RN - 02/01/2025 6:15 PM EDT AVS instructions given. Meds to bed delivered. IV's removed. awake overnight monitor removed, cleaned and placed at corresponding location nurses station. Patient has no questions or concerns at this time. Returning home via family. [id number] Nurse Note* Randy Corenlius RN - 02/01/2025 6:15 PM EDT AVS instructions given. Meds to bed delivered. IV's removed. awake overnight monitor removed, cleaned and placed at corresponding location nurses station. Patient has no questions or concerns at this time. Returning home via family. * Saundra Vinson RN - 01/31/2025 10:00 AM EDT Wound Care consulted for Pressure Injury Prevention. Pt's Simon score = 21 on 01/30/2025 at this time the pt is no longer at risk per Simon Scale. Pt in bed for assessment, turned for posterior assessment independently. Pt's pressure points assessed: Pt's Heels, Buttocks/Sacrum/Coccyx, Back, Elbows, Occiput and Ears are all blanching and intact. Bilateral Heels (edema noted) and Coccyx see media image. Pt denies pain. Instructed pt on pressure injury prevention and importance of turning/postioning every 2 hrs while in bed and every 15 min while sitting in chair. Pt verbalized understanding. Assisted pt to restroom with wheeled walker and returned to bed (see below for additional care given). Prevention Measures in place, including: [place] sheet with pillows (in place), Pt declined Bilateralfoam heel protectors, off loading heels on pillows, Sacral foam and, Zinc/Moisture Barrier ointment. Moisture absorbant pad (in place), Bed Alarm On. Skin Care precaution order set in place d/t Simon score 18 on 01/28/2025. Dietitian consult in place. PT consult NA Simon > 3. D/W stack yield engineer skin assessment, preventions, and interventions implemented. Will continue to follow pt. Please Voicera for any questions or concerns. Saundra Vinson RN, BSN documented in this [facility]07-15-2025 Miscellaneous Notes* Care Coordination - Unknown Case Management - 02/01/2025 4:05 PM EDT Patient Choice Patient Name: MEGAN NASCIMENTO Date of : 1940 All Providers Sent Referral Name: [facility] Phone: [phone] Address: [address] [place] [address] * Home Care - Rachid Mc RN - 02/01/2025 2:05 PM EDT Confirmed with Valerie at PCP's office that patient is active with Dr. Durand for PCP and he will follow for home care orders. * Care Coordination - Nelly Pisano RN - 02/01/2025 10:59 AM EDT Care Management Progress Note Short Medical why still here: Echo complete, EF 12%. Cardiology following, going to treat medically. Meds being changed Planned Discharge Disposition: Home or Self Care Barriers/Today we still Wait: Administering IV medications, Clinical stability Length of Stay (Days): 4 GMLOS: 3.9 * Home Care - Rachid Mc RN - 02/01/2025 10:21 AM EDT Start PACC Note Home Health Referral Educated patient on Home Care and services available. Patient offered choice of available HHC and agreeable to SN services with [facility]. Care Types: None Isolation Precautions: No active isolations Social Determinates of Health: Tobacco Use: Medium Risk (01/30/2025) Patient History Smoking Tobacco Use: Former Smokeless Tobacco Use: Never Passive Exposure: Not on file Social History Substance and Sexual Activity Alcohol Use Yes Comment: occasionally Social History Substance and Sexual Activity Drug Use No Comment: caffeine:1-2 cups of coffee a day Does the patient have any financial resource strain? No Does the patient have any food insecurities? No Does the patient have any housing instabilities? No If any of the above is noted as yes - consider a MATERIAL SPREADER evaluation once the patient returns home. START PATIENT REGISTRATION INFORMATION Order Information Order Signing Physician: Dee Jones MD Service Ordered RN ?: Yes Service Ordered PT ?: No Service Ordered OT ?: No Service Ordered ST ?: No Service Ordered MATERIAL SPREADER?:No Service Ordered RATE SUPERVISOR?: No Following Physician: Dr. Rigoberto Durand Following Physician Overseeing Physician: Dr. Durand (Required for Residents only) Agreeable to Follow? Yes Date/Time of Call 02/01/25 10:23 AM, Spoke with: pending response from PCP Care Coordination Same Day SOC?: No Primary Care Physician: Dr. Rigoberto Durand Primary Care Physician Primary Care Physician Address: [address] [place] [address] [address], [place] [address] Visit Instructions: N/A Service Discharge Location Type: Home with Home Care Service Facility Name: N/A Service Floor Facility: N/A Service Room No: N/A Demographics Patient Last Name: Azam Patient First Name: Megan Language/Communication Barrier: none Service Address: [address] [place] [address] [address] Service City: [facility] [place] ST: [place] Service ZIP: [address] Service (home) Other phone numbers: Telephone Information: Emergency Contact: Extended Emergency Contact Information Primary Emergency Contact: AzamZuleyka Mobile Relation: Meter/Relay Craftsman Secondary Emergency Contact: Negrito Nascimentosa Relation: Child Admission Information Admit Date: 01/28/2025 Patient status at discharge: Inpatient Admitting Diagnosis: AICD (automatic cardioverter/defibrillator) present [Z95.810] Bilateral leg edema [R60.0] Acute systolic congestive heart failure (HCC) [I50.21] Chronic kidney disease, unspecified CKD stage [N18.9] Caregiver Information Caregiver First Name: ron Caregiver Last Name: na Caregiver Relationship to Patient na Caregiver Phone Number: na Caregiver Notes: N/A [employer] List HIGHTECH: HI TECH - NEXT DAY REQUEST Requests Next Available SOC/GONZALO END PATIENT REGISTRATION INFORMATION Pt Home Health goal return home and prevent readmission COVID Status 1. Do you have any upper respiratory symptoms (cough, SOB, Fever)? No 2. Have you been exposed to anyone with COVID-19 Virus? No Answer only if pending or positive for COVID-19? 1. Agreeable to wear PPE at each visit? No 2. Is the hospital supplying them with PPE upon Discharge? 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 NT Pro BNP 23,300, troponin negative, CXR with pulmonary vascular congestion, bilateral pleural effusions, EKG paced. Cardiology consulted and Pt found to be massively hypervolemic, started on IV diuresis. Discharge Date: pending Referral Source-PACC: (Hospital/Unit): [facility] / [id number] B End PACC Note * Care Plan - Marshall Glez RN - 01/31/2025 9:20 PM EDT Problem: Knowledge Deficit Goal: Patient/family/caregiver demonstrates understanding of disease process, treatment plan, medications, and discharge instructions Outcome: Progressing Problem: Hemodynamic Status Goal: Patient's vitals signs are stable Outcome: Progressing Problem: Excessive Fluid Volume Goal: Fluid and electrolyte balance are achieved/maintained Outcome: Progressing Problem: Inadequate Gas Exchange Goal: Patient is adequately oxygenated and ventilation is improved Outcome: Progressing Goal: Nutritional status is improving Outcome: Progressing Problem: Activity Intolerance/Impaired Mobility Goal: Mobility/activity is maintained at optimum level for patient Outcome: Progressing Problem: Nutrition Goal: Nutritional status is improving Outcome: Progressing Problem: Pain - Adult Goal: Verbalizes/displays adequate comfort level or baseline comfort level Outcome: Progressing Problem: Safety - Adult Goal: Free from fall injury Outcome: Progressing Problem: Problem Interventions Goal: Promote nutritional intake Outcome: Progressing * Care Coordination - Nelly Pisano RN - 01/31/2025 11:55 AM EDT Care Managment Initial Assessment Date: 01/31/2025 Patient Name: Megan Nascimento : 1940 Patient Information Source of Information: Patient Cognition/Language: WFL - Within Functional Limits Permission given to speak with patient food service representative/caregiver as indicated: Yes Confirmation of Payer with patient/family: Yes Payer Name: [employer] Medicare advantage : No Confirmation of Primary Care Physician: Confirmed PCP Name: Dr Adonis Roth Seen in last 2 years?: Yes Primary Caregiver: Self If assistance needed, confirmed caregiver ready, willing and able to care for patient at discharge: Confirmed with: Living Arrangements Current Residence: Apartment Number of Floors 1 Number of Entry Steps: Bed/Bath Levels: Both first floor Facility: Facility Name: Plan to Return: Lives with: Alone Support Systems: Children, Family members, Friends/neighbors, export sales manager/social science teacher, Home carestaff Activities of Daily Living Ambulation: Independent Bathing/Dressing: Independent Elimination/Continence/Toileting: Independent Feeding: Independent Who Assists with Activities of Daily Living: Instrumental Activities of Daily Living Prescription Coverage: Yes Pharmacy Used: [facility] Medication Management: Independent Transportation/Shopping: Independent Transportation Mode: Car Needs Assistance with Transportation at Discharge: No Meal Preparation: Independent Laundry/Cleaning: Independent Finances/Bill Paying: Independent Communication: Independent Types of Care Services/Equipment Utilized Care Services: (n/a) Dialysis Type: NA Durable Medical Equipment: Cane, Walker DME Provider: His daughter is his critical care registered nurse Patient's Goal/Discharge Plan Patient expects to be discharged to: home Discharge Planning Actions: Continue to follow Patient's Choice Rights and [employer] and Collaborative Relationships Disclosed as Indicated for Post-Acute Care: Interdisciplinary Team Engagement: Social Work Referral for: Additional Information: Went into room introduced self an role to pt. He appears to be A 0x 3. He came to ER with c/o retaining fluid. Found to be in CHF. Cardiology consulted. Started on IV lasix. Needs an echo. Wants to go home when stable, will follow for needs. . Nelly Pisano RN * Care Plan - Charisma Kaminski RN - 01/31/2025 4:19 AM EDT Problem: Knowledge Deficit Goal: Patient/family/caregiver demonstrates understanding of disease process, treatment plan, medications, and discharge instructions Outcome: Progressing Problem: Hemodynamic Status Goal: Patient's vitals signs are stable Outcome: Progressing Problem: Excessive Fluid Volume Goal: Fluid and electrolyte balance are achieved/maintained Outcome: Progressing Problem: Inadequate Gas Exchange Goal: Patient is adequately oxygenated and ventilation is improved Outcome: Progressing Goal: Nutritional status is improving Outcome: Progressing Problem: Activity Intolerance/Impaired Mobility Goal: Mobility/activity is maintained at optimum level for patient Outcome: Progressing Problem: Nutrition Goal: Nutritional status is improving Outcome: Progressing Problem: Pain - Adult Goal: Verbalizes/displays adequate comfort level or baseline comfort level Outcome: Progressing Problem: Safety - Adult Goal: Free from fall injury Outcome: Progressing Problem: Problem Interventions Goal: Promote nutritional intake Outcome: Progressing * Care Plan - Dania Ledesma RN - 01/30/2025 10:59 AM EDT Problem: Hemodynamic Status Goal: Patient's vitals signs are stable Flowsheets (Taken 01/30/2025 1059) Patient's vital signs are stable: Assess and monitor patient's heart rate, rhythm, respiratory rate, peripheral pulses, capillary refill, color, body temperature, intake and output, labs and physical activity tolerance Observe for signs of chest pain (note location, duration, severity, radiation and associated symptoms such as diaphoresis, nausea, indigestion) Monitor for signs and symptoms of heart failure (e.g. shortness of breath, edema of feet/ankles/legs, rapid irregular heart rate, coughing, wheezing, white/pink blood tinged sputum, sudden weight gain, chest pain) Collaborate with interdisciplinary team and initiate plan and interventions as ordered Position patient for maximum circulation/cardiac output Monitor fluid intake Problem: Safety - Adult Goal: Free from fall injury Outcome: Progressing Note: Side rails upx2, bed low, brakes on, call light in reach. * Care Plan - Jesse Foster RN - 01/29/2025 10:38 AM EDT Problem: Knowledge Deficit Goal: Patient/family/caregiver demonstrates understanding of disease process, treatment plan, medications, and discharge instructions Outcome: Progressing Problem: Hemodynamic Status Goal: Patient's vitals signs are stable Outcome: Progressing Problem: Excessive Fluid Volume Goal: Fluid and electrolyte balance are achieved/maintained Outcome: Progressing Problem: Inadequate Gas Exchange Goal: Patient is adequately oxygenated and ventilation is improved Outcome: Progressing Goal: Nutritional status is improving Outcome: Progressing Problem: Activity Intolerance/Impaired Mobility Goal: Mobility/activity is maintained at optimum level for patient Outcome: Progressing Problem: Nutrition Goal: Nutritional status is improving Outcome: Progressing Problem: Pain - Adult Goal: Verbalizes/displays adequate comfort level or baseline comfort level Outcome: Progressing Problem: Safety - Adult Goal: Free from fall injury Outcome: Progressing * Care Plan - Ana M Flores RN - 01/29/2025 4:19 AM EDT Problem: Knowledge Deficit Goal: Patient/family/caregiver demonstrates understanding of disease process, treatment plan, medications, and discharge instructions Outcome: Progressing Problem: Hemodynamic Status Goal: Patient's vitals signs are stable Outcome: Progressing Problem: Excessive Fluid Volume Goal: Fluid and electrolyte balance are achieved/maintained Outcome: Progressing Problem: Inadequate Gas Exchange Goal: Patient is adequately oxygenated and ventilation is improved Outcome: Progressing Goal: Nutritional status is improving Outcome: Progressing Problem: Activity Intolerance/Impaired Mobility Goal: Mobility/activity is maintained at optimum level for patient Outcome: Progressing Problem: Nutrition Goal: Nutritional status is improving Outcome: Progressing Problem: Pain - Adult Goal: Verbalizes/displays adequate comfort level or baseline comfort level Outcome: Progressing Problem: Safety - Adult Goal: Free from fall injury Outcome: Progressing documented in this [facility]07-15-2025 Note* Care Coordination - Unknown Case Management - 02/01/2025 4:05 PM EDT Patient Choice Patient Name: MEGAN NASCIMENTO Date of : 1940 All Providers Sent Referral Name: [facility] Phone: [phone] Address: [address] [place] [address] [id number] Note* Care Coordination - Unknown Case Management - 02/01/2025 4:05 PM EDT Patient Choice Patient Name: MEGAN NASCIMENTO Date of : 1940 All Providers Sent Referral Name: [facility] Phone: [phone] Address: [address] [place] [address] [id number] Note* Home Care - Rachid Mc RN - 02/01/2025 2:05 PM EDT Confirmed with Valerie at PCP's office that patient is active with Dr. Durand for PCP and he will follow for home care orders. [facility] [id number] Note* Home Care - Rachid Mc RN - 02/01/2025 2:05 PM EDT Confirmed with Valerie at PCP's office that patient is active with Dr. Durand for PCP and he will follow for home care orders. [facility] [id number] NoteDischarge Summary Megan Nascimento : 1940 ADMIT DATE: 01/28/2025 DISCHARGE DATE: 02/01/2025 PRIMARY CARE PHYSICIAN: Gibson Roth (Inactive) VISIT STATUS: Admission CODE STATUS: Full Code DISCHARGE DIAGNOSES: Principal Problem: Acute systolic congestive heart failure (HCC) Active Problems: Presence of cardiac resynchronization therapy defibrillator (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) HTN (hypertension) Follicular non-Hodgkin's lymphoma (HCC) HOSPITAL COURSE: Megan Nascimento is a 84 y.o. male medical history of CHF with reduced ejection fraction (41% 2021), AICD, CKD 3, history of DVT/PE, hypertension, hyperlipidemia, diabetes, hypothyroidism, non-Hodgkin's lymphoma, bladder cancer who presents to the emergency department with fluid overload/CHF exacerbation. Endorsed progressively worsening lower extremity edema over the last 3 weeks. Endorses scrotal edema over the last few days. Seen in Ed by cardiology and diuresed. The following is a summary of his diagnosis/management during his stay here at [facility]: Acute, acute on chronic, unstable/uncontrolled chronic problems/diagnoses: Acute on chronic HFrEF EF now 12% 2/2 NICM. 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 Stage C - Presented decompensated with volume overload. Repeat ECHO now shows worsening LVEF to 12% from 41%. - He is s/p 9 doses of IV lasix. On exam today he is close to euvolemic. He is down to 186lbs today which he states is close to his good wt. Cardiology discontinued IV lasix and started torsemide 40mg daily (previously on 20mg BID) - He is an NYHA class III per cardiology - For GDMT: continue LD entresto, Toprol Xl 100mg daily per cardiology - No MRA or SGLT-2 d/t CKD per cardiology - Cardiology reviewed the ECHO findings with Megan. Otherwise they cleared him for discharge today. Stable chronic problems affecting care, new non-acute diagnoses: CKD IV history of DVT/PE, not on anticoagulation Chronic hypertension, hyperlipidemia, Diabetes type 2 Gabapentin 100 twice daily Glipizide 2.5 oral daily before breakfast Low-dose sliding scale Hypothyroidism -Synthroid 25 mcg daily non-Hodgkin's lymphoma, bladder cancer GERD-on sucralfate 1 g twice daily, Protonix 40 daily BPH-tamsulosin 0.4 mg oral Hx of Anxiety/depression-Zoloft 25 daily Physical exam: Heart S1 S2 heard RRR Lungs: CTAB Abdomen: soft NT ND BS+ Skin: no visible rashes Addendum: The patient is documented to have the diagnosis of GABI on CKD4 with baseline creatinine thought to be around 2.3 documented. The patient's creatinine was 2.37 - 1.78 during admit. After study, I do NOT feel the diagnosis of GABI was diagnostically supported during this admission and patient had CKD4 only, GABI ruled out Addendum: ICD-10 classification presumes a causal relationship between hypertension and heart involvement unless the provider documents that the conditions are unrelated. Patient documented to have acute on chronic HFrEF 2/2 NICM, Per [facility], echo done 01-31-25 shows left ventricle with mildly increased wall thickness. After study, the etiology of the heart failure can be further specified as: Related to hypertension and NICM SIGNIFICANT DIAGNOSTIC STUDIES: As above CONSULTANTS: Cardiology RECOMMENDED NEXT STEPS: DISCHARGE MEDICATIONS: Medication List CHANGE how you take these medications Torsemide 40 MG tablet Take 40 mg by mouth daily. Do not start before February 02, 2025. Start taking on: February 02, 2025 What changed: medication strength how much to take when to take this CONTINUE taking these medications cholecalciferol 25 MCG (1000 UT) capsule Commonly known as: Vitamin D-3 cyanocobalamin 1000 MCG tablet Commonly known as: Vitamin B-12 Entresto 24-26 MG tablet Generic drug: sacubitril-valsartan Take 1 tablet by mouth in the morning and 1 tablet before bedtime. ferrous sulfate 325 (65 Fe) MG tablet gabapentin 100 MG capsule Commonly known as: Neurontin glimepiride 1 MG tablet Commonly known as: Amaryl levothyroxine 25 MCG tablet Commonly known as: Synthroid, Levoxyl metoprolol succinate XL 100 MG 24 hr tablet Commonly known as: Toprol-XL multivitamin tablet pantoprazole 40 MG EC tablet Commonly known as: ProtoNix rosuvastatin 20 MG tablet Commonly known as: Crestor sertraline 25 MG tablet Commonly known as: Zoloft sucralfate 1 g tablet Commonly known as: Carafate tamsulosin 0.4 MG 24 hr capsule Commonly known as: Flomax Take 1 capsule (0.4 mg) by mouth daily. STOP taking these medications tadalafil 20 MG tablet Commonly known as: Cialis Where to Get Your Medications These medications were sent to [facility] [address] [place] [address] [place] [id number] Hours: Friday to Friday 10 am to 6 pm tamsulosin 0.4 MG 24 hr capsule Torsemide 40 MG tablet DIET: Adult diet Regular; Low Sodium (2 gm); 5 carb choices (75 gm/meal) ACTIVITY: No restriction. (more content not included)...[facility]07-15-2025 Hospital course Narrative* Dee Jones MD - 02/01/2025 11:58 AM EDT Discharge Summary Megan Nascimento : 1940 ADMIT DATE: 01/28/2025 DISCHARGE DATE: 02/01/2025 PRIMARY CARE PHYSICIAN: Gibson Roth (Inactive) VISIT STATUS: Admission CODE STATUS: Full Code DISCHARGE DIAGNOSES: Principal Problem: Acute systolic congestive heart failure (HCC) Active Problems: Presence of cardiac resynchronization therapy defibrillator (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) HTN (hypertension) Follicular non-Hodgkin's lymphoma (HCC) HOSPITAL COURSE: Megan Nascimento is a 84 y.o. male medical history of CHF with reduced ejection fraction (41% 2021), AICD, CKD 3, history of DVT/PE, hypertension, hyperlipidemia, diabetes, hypothyroidism, non-Hodgkin's lymphoma, bladder cancer who presents to the emergency department with fluid overload/CHF exacerbation. Endorsed progressively worsening lower extremity edema over the last 3 weeks. Endorses scrotal edema over the last few days. Seen in Ed by cardiology and diuresed. The following is a summary of his diagnosis/management during his stay here at [facility]: Acute, acute on chronic, unstable/uncontrolled chronic problems/diagnoses: Acute on chronic HFrEF EF now 12% 2/2 NICM. 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 Stage C - Presented decompensated with volume overload. Repeat ECHO now shows worsening LVEF to 12% from 41%. - He is s/p 9 doses of IV lasix. On exam today he is close to euvolemic. He is down to 186lbs todaywhich he states is close to his good wt. Cardiology discontinued IV lasix and started torsemide 40mg daily (previously on 20mg BID) - He is an NYHA class III per cardiology - For GDMT: continue LD entresto, Toprol Xl 100mg daily per cardiology - No MRA or SGLT-2 d/t CKD per cardiology - Cardiology reviewed the ECHO findings with Megan. Otherwise they cleared him for discharge today. Stable chronic problems affecting care, new non-acute diagnoses: CKD IV history of DVT/PE, not on anticoagulation Chronic hypertension, hyperlipidemia, Diabetes type 2 Gabapentin 100 twice daily Glipizide 2.5 oral daily before breakfast Low-dose sliding scale Hypothyroidism -Synthroid 25 mcg daily non-Hodgkin's lymphoma, bladder cancer GERD-on sucralfate 1 g twice daily, Protonix 40 daily BPH-tamsulosin 0.4 mg oral Hx of Anxiety/depression-Zoloft 25 daily Physical exam: Heart S1 S2 heard RRR Lungs: CTAB Abdomen: soft NT ND BS+ Skin: no visible rashes SIGNIFICANT DIAGNOSTIC STUDIES: As above CONSULTANTS: Cardiology RECOMMENDED NEXT STEPS: DISCHARGE MEDICATIONS: Medication List CHANGE how you take these medications Torsemide 40 MG tablet Take 40 mg by mouth daily. Do not start before February 02, 2025. Start taking on: February 02, 2025 What changed: medication strength how much to take when to take this CONTINUE taking these medications cholecalciferol 25 MCG (1000 UT) capsule Commonly known as: Vitamin D-3 cyanocobalamin 1000 MCG tablet Commonly known as: Vitamin B-12 Entresto 24-26 MG tablet Generic drug: sacubitril-valsartan Take 1 tablet by mouth in the morning and 1 tablet before bedtime. ferrous sulfate 325 (65 Fe) MG tablet gabapentin 100 MG capsule Commonly known as: Neurontin glimepiride 1 MG tablet Commonly known as: Amaryl levothyroxine 25 MCG tablet Commonly known as: Synthroid, Levoxyl metoprolol succinate XL 100 MG 24 hr tablet Commonly known as: Toprol-XL multivitamin tablet pantoprazole 40 MG EC tablet Commonly known as: ProtoNix rosuvastatin 20 MG tablet Commonly known as: Crestor sertraline 25 MG tablet Commonly known as: Zoloft sucralfate 1 g tablet Commonly known as: Carafate tamsulosin 0.4 MG 24 hr capsule Commonly known as: Flomax Take 1 capsule (0.4 mg) by mouth daily. STOP taking these medications tadalafil 20 MG tablet Commonly known as: Cialis Where to Get Your Medications These medications were sent to [facility] [address] [place] [id number] Hours: Friday to Friday 10 am to 6 pm tamsulosin 0.4 MG 24 hr capsule Torsemide 40 MG tablet DIET: Adult diet Regular; Low Sodium (2 gm); 5 carb choices (75 gm/meal) ACTIVITY: No restriction. COMPLEXITY OF FOLLOW UP: [] Moderate Complexity: follow up within 7-14 calendar days (61312) [] Severe Complexity: follow up within 7 calendar days (08495) FOLLOW UP TESTING, PENDING RESULTS OR REFERRALS AT TRANSITIONAL CARE VISIT: [] Yes [] No PENDING STUDIES: DISPOSITION: Home with Home Health Care FACILITY/HOME CARE AGENCY NAME: Follow up with Petra Renteria APRN - [address], [address] [facility] [address] Go on 02/15/2025 appointment time 2:30pm INSTRUCTIONS TO MA/SW: Please call patient on day after discharge (must document patient contacted within 2 business days of discharge). FOLLOW UP QUESTIONS FOR MA/SW: 1. Did you get medications filled and taking them as instructed from discharge? 2. Are you following your discharge instructions from your hospital stay? 3. Please confirm patient is scheduled for a follow up appointment within the above time frame. DISCHARGE TIME: > 31 minutes SIGNED: Dee Jones MD 02/01/2025, 11:58 AM documented in this [facility]07-15-2025 Note* Care Coordination - Nelly Pisano RN - 02/01/2025 10:59 AM EDT Care Management Progress Note Short Medical why still here: Echo complete, EF 12%. Cardiology following, going to treat medically. Meds being changed Planned Discharge Disposition: Home or Self Care Barriers/Today we still Wait: Administering IV medications, Clinical stability Length of Stay (Days): 4 GMLOS: 3.9 [id number] Note* Care Coordination - Nelly Pisano RN - 02/01/2025 10:59 AM EDT Care Management Progress Note Short Medical why still here: Echo complete, EF 12%. Cardiology following, going to treat medically. Meds being changed Planned Discharge Disposition: Home or Self Care Barriers/Today we still Wait: Administering IV medications, Clinical stability Length of Stay (Days): 4 GMLOS: 3.9 [place] [id number] NoteCare Management Progress Note Short Medical why still here: Echo complete, EF 12%. Cardiology following, going to treat medically. Meds being changed Planned Discharge Disposition: Home or Self Care Barriers/Today we still Wait: Administering IV medications, Clinical stability Length of Stay (Days): 4 GMLOS: 3.9 [facility] [id number] Note* Home Care - Rachid Mc RN - 02/01/2025 10:21 AM EDT Start PACC Note Home Health Referral Educated patient on Home Care and services available. Patient offered choice of available HHC and agreeable to SN services with [facility]. Care Types: None Isolation Precautions: No active isolations Social Determinates of Health: Tobacco Use: Medium Risk (01/30/2025) Patient History Smoking Tobacco Use: Former Smokeless Tobacco Use: Never Passive Exposure: Not on file Social History Substance and Sexual Activity Alcohol Use Yes Comment: occasionally Social History Substance and Sexual Activity Drug Use No Comment: caffeine:1-2 cups of coffee a day Does the patient have any financial resource strain? No Does the patient have any food insecurities? No Does the patient have any housing instabilities? No If any of the above is noted as yes - consider a MATERIAL SPREADER evaluation once the patient returns home. START PATIENT REGISTRATION INFORMATION Order Information Order Signing Physician: Dee Jones MD Service Ordered RN ?: Yes Service Ordered PT ?: No Service Ordered OT ?: No Service Ordered ST ?: No Service Ordered MATERIAL SPREADER?:No Service Ordered RATE SUPERVISOR?: No Following Physician: Dr. Rigoberto Durand Following Physician Overseeing Physician: Dr. Durand (Required for Residents only) Agreeable to Follow? Yes Date/Time of Call 02/01/25 10:23 AM, Spoke with: pending response from PCP Care Coordination Same Day SOC?: No Primary Care Physician: Dr. Rigoberto Durand Primary Care Physician Primary Care Physician Address: [address] [place] [address] [address], [place] [address] Visit Instructions: N/A Service Discharge Location Type: Home with Home Care Service Facility Name: N/A Service Floor Facility: N/A Service Room No: N/A Demographics Patient Last Name: Azam Patient First Name: Megan Language/Communication Barrier: none Service Address: [address] [place] [address] [address] Service City: [place] Service ST: [place] Service ZIP: [address] Service (home) Other phone numbers: Telephone Information: Emergency Contact: Extended Emergency Contact Information Primary Emergency Contact: Zuleyka Nascimento Mobile Relation: Meter/Relay Craftsman Secondary Emergency Contact: Shaylee Nascimento Relation: Child Admission Information Admit Date: 01/28/2025 Patient status at discharge: Inpatient Admitting Diagnosis: AICD (automatic cardioverter/defibrillator) present [Z95.810] Bilateral leg edema [R60.0] Acute systolic congestive heart failure (HCC) [I50.21] Chronic kidney disease, unspecified CKD stage [N18.9] Caregiver Information Caregiver First Name: na Caregiver Last Name: na Caregiver Relationship to Patient na Caregiver Phone Number: na Caregiver Notes: N/A [employer] List HIGHTECH: [facility] - NEXT DAY REQUEST Requests Next Available SOC/GONZALO END PATIENT REGISTRATION INFORMATION Pt Home Health goal return home and prevent readmission COVID Status 1. Do you have any upper respiratory symptoms (cough, SOB, Fever)? No 2. Have you been exposed to anyone with COVID-19 Virus? No Answer only if pending or positive for COVID-19? 1. Agreeable to wear PPE at each visit? No 2. Is the hospital supplying them with PPE upon Discharge? 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 NT Pro BNP 23,300, troponin negative, CXR with pulmonary vascular congestion, bilateral pleural effusions, EKG paced. Cardiology consulted and Pt found to be massively hypervolemic, started on IV diuresis. Discharge Date: pending Referral Source-PACC: (Hospital/Unit): [facility] / [id number]/[id number] B End [id number] Care - Rachid Mc RN - 02/01/2025 10:21 AM EDT Start PACC Note Home Health Referral Educated patient on Home Care and services available. Patient offered choice of available HHC and agreeable to SN services with [facility]. Care Types: None Isolation Precautions: No active isolations Social Determinates of Health: Tobacco Use: Medium Risk (01/30/2025) Patient History Smoking Tobacco Use: Former Smokeless Tobacco Use: Never Passive Exposure: Not on file Social History Substance and Sexual Activity Alcohol Use Yes Comment: occasionally Social History Substance and Sexual Activity Drug Use No Comment: caffeine:1-2 cups of coffee a day Does the patient have any financial resource strain? No Does the patient have any food insecurities? No Does the patient have any housing instabilities? No If any of the above is noted as yes - consider a MATERIAL SPREADER evaluation once the patient returns home. [place] PATIENT REGISTRATION INFORMATION Order Information Order Signing Physician: Dee Jones MD Service Ordered RN ?: Yes Service Ordered PT ?: No Service Ordered OT ?: No Service Ordered ST ?: No Service Ordered MATERIAL SPREADER?:No Service Ordered RATE SUPERVISOR?: No Following Physician: Dr. Rigoberto Durand Following Physician Overseeing Physician: Dr. Durand (Required for Residents only) Agreeable to Follow? Yes Date/Time of Call 02/01/25 10:23 AM, Spoke with: pending response from PCP Care Coordination Same Day SOC?: No Primary Care Physician: Dr. Rigoberto Durand Primary Care Physician Primary Care Physician Address: [address] [place] [address] [address], [place] [address] Visit Instructions: N/A Service Discharge Location Type: Home with Home Care Service Facility Name: N/A Service Floor Facility: N/A Service Room No: N/A Demographics Patient Last Name: Azam Patient First Name: Megan Language/Communication Barrier: none Service Address: [address] [place] [address] [address] Service City: [facility] [place] ST: [place] Service ZIP: [address] Service (home) Other phone numbers: Telephone Information: Emergency Contact: Extended Emergency Contact Information Primary Emergency Contact: AzamZuleyka Mobile Relation: Meter/Relay Craftsman Secondary Emergency Contact: Shaylee Nascimento Relation: Child Admission Information Admit Date: 01/28/2025 Patient status at discharge: Inpatient Admitting Diagnosis: AICD (automatic cardioverter/defibrillator) present [Z95.810] Bilateral leg edema [R60.0] Acute systolic congestive heart failure (HCC) [I50.21] Chronic kidney disease, unspecified CKD stage [N18.9] Caregiver Information Caregiver First Name: na Caregiver Last Name: na Caregiver Relationship to Patient na Caregiver Phone Number: na Caregiver Notes: N/A [employer] List HIGHTECH: [facility] TECH - NEXT DAY REQUEST Requests Next Available SOC/GONZALO END PATIENT REGISTRATION INFORMATION Pt Home Health goal return home and prevent readmission COVID Status 1. Do you have any upper respiratory symptoms (cough, SOB, Fever)? No 2. Have you been exposed to anyone with COVID-19 Virus? No Answer only if pending or positive for COVID-19? 1. Agreeable to wear PPE at each visit? No 2. Is the hospital supplying them with PPE upon Discharge? 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 NT Pro BNP 23,300, troponin negative, CXR with pulmonary vascular congestion, bilateral pleural effusions, EKG paced. Cardiology consulted and Pt found to be massively hypervolemic, started on IV diuresis. Discharge Date: pending Referral Source-PACC: (Hospital/Unit): [facility] / W5-541/W5-541 B End PACC [id number] NoteStart PACC Note Home Health Referral Educated patient on Home Care and services available. Patient offered choice of available HHC and agreeable to SN services with [facility]. Care Types: None Isolation Precautions: No active isolations Social Determinates of Health: Tobacco Use: Medium Risk (01/30/2025) Patient History Smoking Tobacco Use: Former Smokeless Tobacco Use: Never Passive Exposure: Not on file Social History Substance and Sexual Activity Alcohol Use Yes Comment: occasionally Social History Substance and Sexual Activity Drug Use No Comment: caffeine:1-2 cups of coffee a day Does the patient have any financial resource strain? No Does the patient have any food insecurities? No Does the patient have any housing instabilities? No If any of the above is noted as yes - consider a MATERIAL SPREADER evaluation once the patient returns home. START PATIENT REGISTRATION INFORMATION Order Information Order Signing Physician: Dee Jones MD Service Ordered RN ?: Yes Service Ordered PT ?: No Service Ordered OT ?: No Service Ordered ST ?: No Service Ordered MATERIAL SPREADER?:No Service Ordered RATE SUPERVISOR?: No Following Physician: Dr. Rigoberto Durand Following Physician Overseeing Physician: Dr. Durand (Required for Residents only) Agreeable to Follow? Yes Date/Time of Call 02/01/25 10:23 AM, Spoke with: pending response from PCP Care Coordination Same Day SOC?: No Primary Care Physician: Dr. Rigoberto Durand Primary Care Physician Primary Care Physician Address: [address] [place] [address] [address], [place] [address] Visit Instructions: N/A Service Discharge Location Type: Home with Home Care Service Facility Name: N/A Service Floor Facility: N/A Service Room No: N/A Demographics Patient Last Name: Azam Patient First Name: Megan Language/Communication Barrier: none Service Address: [address] [place] [address] [address] Service City: [facility] [place] ST: [place] Service ZIP: [address] Service (home) Other phone numbers: Telephone Information: Emergency Contact: Extended Emergency Contact Information Primary Emergency Contact: AzamZuleyka Mobile Relation: Meter/Relay Craftsman Secondary Emergency Contact: AzamShaylee Relation: Child Admission Information Admit Date: 01/28/2025 Patient status at discharge: Inpatient Admitting Diagnosis: AICD (automatic cardioverter/defibrillator) present [Z95.810] Bilateral leg edema [R60.0] Acute systolic congestive heart failure (HCC) [I50.21] Chronic kidney disease, unspecified CKD stage [N18.9] Caregiver Information Caregiver First Name: ron Caregiver Last Name: na Caregiver Relationship to Patient na Caregiver Phone Number: na Caregiver Notes: N/A [employer] List HIGHTECH: [place] TECH - NEXT DAY REQUEST Requests Next Available SOC/GONZALO END PATIENT REGISTRATION INFORMATION Pt Home Health goal return home and prevent readmission COVID Status 1. Do you have any upper respiratory symptoms (cough, SOB, Fever)? No 2. Have you been exposed to anyone with COVID-19 Virus? No Answer only if pending or positive for COVID-19? 1. Agreeable to wear PPE at each visit? No 2. Is the hospital supplying them with PPE upon Discharge? 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 NT Pro BNP 23,300, troponin negative, CXR with pulmonary vascular congestion, bilateral pleural effusions, EKG paced. Cardiology consulted and Pt found to be massively hypervolemic, started on IV diuresis. Discharge Date: pending Referral Source-PACC: (Hospital/Unit): [facility] / [id number]/W5-541 B End PACC [facility]07-15-2025 Hospital Discharge instructions* Discharge Instr - Other Orders* Rachid Mc RN - 02/01/2025 10:18 AM EDT Discharging to Facility/ Agency Name: [facility] Address: [address] [place] [address] * Attachments The following attachments cannot be sent through Care Everywhere. * [facility] documented in this [facility]07-15-2025 [place] and [facility] Cardiology /Electrophysiology Progress Note HPI / Interval History: Megan Nascimento is a 84 year old male with a PMH of chronic HFrEF, NICM, 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 NT Pro BNP 23,300, troponin negative, CXR with pulmonary vascular congestion, bilateral pleural effusions, EKG paced. Cardiology consulted and Pt found to be massively hypervolemic, started on IV diuresis. Repeat ECHO this admission showed LVEF 12%, down from 30-35%. Low normal RV function, +2 TR, RVSP 50mmHg. Last Device check showed 98% BiV paced Today, Megan states he's feeling much better and asking if he can go home. He denies any SOB at rest, HILLMAN, dizziness or feeling lightheaded. Notes his scrotal swelling has gone down. Assessment/Plan Acute on chronic HFrEF EF now 12% 2/2 NICM. 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 Stage C - Presented decompensated with volume overload. Repeat ECHO now shows worsening LVEF to 12% from 41%. - He is s/p 9 doses of IV lasix. On exam today he is close to euvolemic. He is down to 186lbs today which he states is close to his good wt. I will discontinue IV lasix and start torsemide 40mg daily (previously on 20mg BID) - He is an NYHA class III - For GDMT: continue LD entresto, Toprol Xl 100mg daily - No MRA or SGLT-2 d/t CKD - I reviewed the ECHO findings with Megan. - I reviewed importance of daily weights, 2L fluid restriction and low sodium diet. - It would be appropriate to review [facility] at first follow up considering worsening LVEF. He is currently a Full code CKDIV - Appears baseline is mid 2.0's. on arrival he was 2.3 now improved to 1.8 with IV diuresis. HTN - Controlled on above GDMT History of PE/DVT - Not on anticoagulation HF ok with discharge. Cardiology Discharge/Sign-off Recommendations Cardiology medications to continue: [x] All cardiac medications as ordered currently Followup testing recommended as an outpatient: [x] Will be arranged by Cardiology NA Cardiology followup: [x] Arranged as follows: Everton Renteria, 02/15 at 2:30pm If there are any questions/concerns, please contact the covering provider. If no answer by Secure Chat, please call the cardiology office to obtain appropriate covering PHARMACY AIDE/physician. Medications: Scheduled Meds[1] Infusion Medications: Continuous Meds[2] Physical Examination: Vitals: 02/01/25 0216 02/01/25 0358 02/01/25 0754 02/01/25 1122 BP: 138/89 138/84 137/86 BP Location: Right arm Right arm Right arm Patient Position: Lying Sitting Lying Pulse: 78 80 77 Resp: 16 18 16 Temp: 36.6 ?C (97.8 ?F) 36.1 ?C (97 ?F) 36.1 ?C (97 ?F) TempSrc: Temporal Temporal Temporal SpO2: 95% 93% 95% Weight: 186 lb 9.6 oz (84.6 kg) Height: Intake/Output Summary (Last 24 hours) at 02/01/2025 1204 Last data filed at 02/01/2025 0941 Gross per 24 hour Intake 534.17 ml Output 800 ml Net -265.83 ml Patient Vitals for the past 168 hrs: Weight Weight Method 02/01/25 0216 186 lb 9.6 oz (84.6 kg) Standing scale 01/31/25 1114 188 lb (85.3 kg) -- 01/31/25 0522 188 lb (85.3 kg) Standing scale 01/30/25 0143 189 lb 3.2 oz (85.8 kg) Standing scale 01/29/25 0300 192 lb 8 oz (87.3 kg) Bed scale 01/28/25 1719 193 lb 9.6 oz (87.8 kg) Standing scale 01/28/25 0157 195 lb 8 oz (88.7 kg) Bed scale Physical Exam Constitutional: Appearance: Normal appearance. Neck: Vascular: No JVD. Cardiovascular: Pulses: Normal pulses. Heart sounds: Normal heart sounds. Comments: paced Pulmonary: Effort: Pulmonary effort is normal. Breath sounds: Normal breath sounds. Abdominal: General: Bowel sounds are normal. Palpations: Abdomen is soft. Musculoskeletal: Right lower leg: Edema present. Left lower leg: Edema present. Skin: General: Skin is cool and dry. Neurological: General: No focal deficit present. Mental Status: He is alert and oriented to person, place, and time. Laboratory Tests: TROPONIN I, CONVENTIONAL SENSITIVITY TROPONIN I Date Value Ref Range Status 05/14/2021 0.029 0.000 - 0.034 ng/mL Final Comment: . 05/14/2021 0.029 0.000 - 0.034 ng/mL Final Comment: . 05/13/2021 0.033 0.000 - 0.034 ng/mL Final Comment: . 05/13/2021 0.035 (H) 0.000 - 0.034 ng/mL Final Comment: . 01/31/2021 0.027 0.000 - 0.034 ng/mL Final Comment: . TROPONIN I, HIGH SENSITIVITY Troponin HS Serial Baseline Date Value Ref Range Status 01/28/2025 32 <=35 ng/L Final Comment: In individuals presenting with symptoms > 2h, a baseline troponin <= 5 ng/L suggests acute cardiac injury is unlikely and further serial testing is generally not indicated. No results found for: TROPHS2 No results found for: TROPDELTBASE No results found for: TROPHS3 No results found for: TROPDELTSEC Recent Labs 01/29/25 1710 01/30/25 1130 01/30/25 1539 01/31/25 1211 01/31/25 1728 NA 141 141 141 140 140 K 3 (more content not included)...[facility]07-15-2025 History of Present illness Narrative* Cindy Recinos, CHLOE - MARINE OILER - 02/01/2025 8:15 AM EDT [facility] Cardiology /Electrophysiology Progress Note HPI / Interval History: Megan Nascimento is a 84 year old male with a PMH of chronic HFrEF, NICM, 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 NT Pro BNP 23,300, troponin negative, CXR with pulmonary vascular congestion, bilateral pleural effusions, EKG paced. Cardiology consulted and Pt found to be massively hypervolemic, started on IV diuresis. Repeat ECHO this admission showed LVEF 12%, down from 30-35%. Low normal RV function, +2 TR, RVSP 50mmHg. Last Device check showed 98% BiV paced Today, Megan states he's feeling much better and asking if he can go home. He denies any SOB at rest, HILLMAN, dizziness or feeling lightheaded. Notes his scrotal swelling has gone down. Assessment/Plan Acute on chronic HFrEF EF now 12% 2/2 NICM. 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 Stage C - Presented decompensated with volume overload. Repeat ECHO now shows worsening LVEF to 12% from 41%. - He is s/p 9 doses of IV lasix. On exam today he is close to euvolemic. He is down to 186lbs todaywhich he states is close to his good wt. I will discontinue IV lasix and start torsemide 40mg daily(previously on 20mg BID) - He is an NYHA class III - For GDMT: continue LD entresto, Toprol Xl 100mg daily - No MRA or SGLT-2 d/t CKD - I reviewed the ECHO findings with Megan. - I reviewed importance of daily weights, 2L fluid restriction and low sodium diet. - It would be appropriate to review [facility] at first follow up considering worsening LVEF. He is currently a Full code CKDIV - Appears baseline is mid 2.0's. on arrival he was 2.3 now improved to 1.8 with IV diuresis. HTN - Controlled on above GDMT History of PE/DVT - Not on anticoagulation HF ok with discharge. Cardiology Discharge/Sign-off Recommendations Cardiology medications to continue: [x] All cardiac medications as ordered currently Followup testing recommended as an outpatient: [x] Will be arranged by Cardiology NA Cardiology followup: [x] Arranged as follows: Everton Renteria, 02/15 at 2:30pm If there are any questions/concerns, please contact the covering provider. If no answer by Secure Chat, please call the cardiology office to obtain appropriate covering PHARMACY AIDE/physician. Medications: Scheduled Meds[1] Infusion Medications: Continuous Meds[2] Physical Examination: Vitals: 02/01/25 0216 02/01/25 0358 02/01/25 0754 02/01/25 1122 BP: 138/89 138/84 137/86 BP Location: Right arm Right arm Right arm Patient Position: Lying Sitting Lying Pulse: 78 80 77 Resp: 16 18 16 Temp: 36.6 C (97.8 F) 36.1 C (97 F) 36.1 C (97 F) TempSrc: Temporal Temporal Temporal SpO2: 95% 93% 95% Weight: 186 lb 9.6 oz (84.6 kg) Height: Intake/Output Summary (Last 24 hours) at 02/01/2025 1204 Last data filed at 02/01/2025 0941 Gross per 24 hour Intake 534.17 ml Output 800 ml Net -265.83 ml Patient Vitals for the past 168 hrs: Weight Weight Method 02/01/25 0216 186 lb 9.6 oz (84.6 kg) Standing scale 01/31/25 1114 188 lb (85.3 kg) -- 01/31/25 0522 188 lb (85.3 kg) Standing scale 01/30/25 0143 189 lb 3.2 oz (85.8 kg) Standing scale 01/29/25 0300 192 lb 8 oz (87.3 kg) Bed scale 01/28/25 1719 193 lb 9.6 oz (87.8 kg) Standing scale 01/28/25 0157 195 lb 8 oz (88.7 kg) Bed scale Physical Exam Constitutional: Appearance: Normal appearance. Neck: Vascular: No JVD. Cardiovascular: Pulses: Normal pulses. Heart sounds: Normal heart sounds. Comments: paced Pulmonary: Effort: Pulmonary effort is normal. Breath sounds: Normal breath sounds. Abdominal: General: Bowel sounds are normal. Palpations: Abdomen is soft. Musculoskeletal: Right lower leg: Edema present. Left lower leg: Edema present. Skin: General: Skin is cool and dry. Neurological: General: No focal deficit present. Mental Status: He is alert and oriented to person, place, and time. Laboratory Tests: TROPONIN I, CONVENTIONAL SENSITIVITY TROPONIN I Date Value Ref Range Status 05/14/2021 0.029 0.000 - 0.034 ng/mL Final Comment: . 05/14/2021 0.029 0.000 - 0.034 ng/mL Final Comment: . 05/13/2021 0.033 0.000 - 0.034 ng/mL Final Comment: . 05/13/2021 0.035 (H) 0.000 - 0.034 ng/mL Final Comment: . 01/31/2021 0.027 0.000 - 0.034 ng/mL Final Comment: . TROPONIN I, HIGH SENSITIVITY Troponin HS Serial Baseline Date Value Ref Range Status 01/28/2025 32 <=35 ng/L Final Comment: In individuals presenting with symptoms > 2h, a baseline troponin <= 5 ng/L suggests acute cardiac injury is unlikely and further serial testing is generally not indicated. No results found for: TROPHS2 No results found for: TROPDELTBASE No results found for: TROPHS3 No results found for: TROPDELTSEC Recent Labs 01/29/25 1710 01/30/25 1130 01/30/25 1539 01/31/25 1211 01/31/25 1728 NA 141 141 141 140 140 K 3.4* 3.6 3.6 3.6 4.0 CL 106 106 106 105 103 CO2 24 21* 21* 27 23 BUN 36* 32* 32* 30* 31* CREATININE 2.08* 1.78* 1.95* 1.94* 1.88* Recent Labs 01/29/25 1710 01/30/25 1539 01/31/25 12102/01/25 0326 WBC 5.3 5.0 4.4 4.2 HGB 15.1 14.9 14.6 14.4 HCT 46.3 45.8 45.5 44.6 MCV 87.9 88.8 88.9 87.5 PLT 199 205 180 194 No results for input(s): BNP in the last 72 hours. No results for input(s): TRIG, HDL, LDLCALC, CHOL in the last 72 hours. No results found for: LDLCHOLESTER No results found for: TSH EF BP Date Value Ref Range Status 01/31/2025 12 (A) 55 - 100 % Final 01/28/25 TRANSTHORACIC ECHOCARDIOGRAM (TTE) COMPLETE (CONTRAST/BUBBLE/3D PRN) 01/31/2025 4:10 PM (Final) Interpretation Summary Left Ventricle: Left ventricle size is normal. Mildly increased wall thickness. Severely reduced left ventricular systolic function. EF by 2D Simpsons Biplane is 12%. Severe global hypokinesis present. See diagram for wall motion findings. Abnormal dyskinetic wall motion may be due to RV pacing. Septal motion is consistent with pacing. Right Ventricle: Right ventricle is mildly dilated. Lead present in the right ventricle. Low normalsystolic function. Aortic Valve: Mild to moderate (1-2+) regurgitation with an eccentrically directed jet. Mild stenosis of the aortic valve. AV mean gradient is 3 mmHg. AV peak velocity is 1.2 m/s. LVOT:AV VTI Index is 0.33. AV area by continuity VTI is 1.4 cm2. AV Area by Planimetry is 1.7 cm2. Mitral Valve: Mildly thickened leaflets. Mild (1+) regurgitation. Tricuspid Valve: Moderate (2+) regurgitation with an eccentrically directed jet. Both central and toward septum. Moderately elevated RVSP. Est RA pressure is 15 mmHg. RVSP is 50 mmHg. Left Atrium: Left atrium is severely dilated. LA Vol Index A/L is 58 mL/m2. Right Atrium: Right atrium is severely dilated. Lead present in the right atrium. Aorta: Normal sized sinuses of Valsalva. Moderately dilated ascending aorta. Ao ascending diameter is 4.3 cm. Compared to report of 02/2022 the LVEF has decreased from 30-35% to about 10%. Signed by: Jarret Weldon MD on 01/31/2025 4:10 PM Other reports reviewed: Cardiac Tests: Telemetry findings reviewed: BiV paced EF BP Date Value Ref Range Status 01/31/2025 12 (A) 55 - 100 % Final CHLOE Boudreaux CNP Date Of Service 02/01/2025 [1] cholecalciferol, 25 mcg, Oral, Daily clotrimazole, , Topical, BID cyanocobalamin, 1,000 mcg, Oral, Daily ferrous sulfate, 325 mg, Oral, Daily with breakfast gabapentin, 100 mg, Oral, BID [Held by provider] glipiZIDE, 2.5 mg, Oral, qAM AC heparin, 5,000 Units, SubCUTAneous, 3 times per day insulin lispro, 0-12 Units, SubCUTAneous, TID WC And insulin lispro, 0-12 Units, SubCUTAneous, Nightly levothyroxine, 25 mcg, Oral, Daily metoprolol succinate XL, 100 mg, Oral, Daily pantoprazole, 40 mg, Oral, qAM AC sacubitril-valsartan, 1 tablet, Oral, BID sertraline, 25 mg, Oral, Daily sucralfate, 1 g, Oral, BID AC tamsulosin, 0.4 mg, Oral, Daily therapeutic multivitamin-minerals, 1 tablet, Oral, Daily [START ON 02/02/2025] torsemide, 40 mg, Oral, Daily [2] * CHLOE dHz CNP - 01/31/2025 9:34 AM EDT [facility] Cardiology /Electrophysiology Progress Note HPI / Interval History: Pt is a 84 year old male with a PMH significant for chronic HFrEF, NICM, 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 NT Pro BNP 23,300, troponin negative, CXR with pulmonary vascular congestion, bilateral pleural effusions, EKG paced. Cardiology consulted and Pt found to be massively hypervolemic, started on IV diuresis. Last echocardiogram in 2021 with LVEF=41%, normal RV systolic function Today, Mr. Nascimento states he is feeling much better. He no longer feels as bloated in his abdomen, still has alessio lower extremity edema but not as tight. Continues to urinate briskly. He just ambulatedto the restroom and did not feel SOB. Denies any orthopnea or chest pain overnight. Assessment/Plan #Acute on chronic HFrEF, NICM, stage C. NYHA - unable to assess as Pt not OOB -He remains warm and hypervolemic with JVP to at least mid neck. UOP 2L ovenrihgt with great improvement in symptoms. Will continue Lasix 80mg IV BID. -He is on low dose Entresto, Toprol-XL 100 mg daily-> continue - labs need competed today. Will monitor for results, and replace electrolytes as needed -No MRA/SGL2i 2/2 CKD IV -TTE pending -Strict I&Os, daily standing weights, 1.8 g Na diet, and 64 oz fluid restriction #HTN -SBP 120-130s. Continue GDMT #S/p 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 -Following in our device clinic, last cardiac device check with SUBWAY TRAIN DRIVER=98%, no events Addendum 1350: labs reviewed for stable renal function (scr 1.9) on IV diuresis. K+ repleted Medications: Scheduled Meds[1] Infusion Medications: Continuous Meds[2] Physical Examination: Vitals: 01/30/25 2325 01/31/25 0348 01/31/25 0522 01/31/25 0816 BP: 118/64 134/80 125/68 BP Location: Left arm Patient Position: Lying Pulse: 74 84 76 Resp: 16 20 18 Temp: 36 C (96.8 F) 36.1 C (97 F) 36.1 C (97 F) TempSrc: Temporal Temporal Temporal SpO2: 98% 95% 95% Weight: 188 lb (85.3 kg) Height: Intake/Output Summary (Last 24 hours) at 01/31/2025 0934 Last data filed at 01/31/2025 0816 Gross per 24 hour Intake 1120 ml Output 1250 ml Net -130 ml Patient Vitals for the past 168 hrs: Weight Weight Method 01/31/25 0522 188 lb (85.3 kg) Standing scale 01/30/25 0143 189 lb 3.2 oz (85.8 kg) Standing scale 01/29/25 0300 192 lb 8 oz (87.3 kg) Bed scale 01/28/25 1719 193 lb 9.6 oz (87.8 kg) Standing scale 01/28/25 0157 195 lb 8 oz (88.7 kg) Bed scale Physical Exam Vitals reviewed. Constitutional: Appearance: He is obese. Neck: Vascular: JVD present. Cardiovascular: Rate and Rhythm: Normal rate and regular rhythm. Heart sounds: No murmur heard. Pulmonary: Effort: Pulmonary effort is normal. Breath sounds: Normal breath sounds. No wheezing or rales. Abdominal: General: There is no distension. Musculoskeletal: Right lower le+ Pitting Edema present. Left lower le+ Pitting Edema present. Skin: General: Skin is warm and dry. Neurological: Mental Status: He is alert. Laboratory Tests: TROPONIN I, CONVENTIONAL SENSITIVITY TROPONIN I Date Value Ref Range Status 05/14/2021 0.029 0.000 - 0.034 ng/mL Final Comment: . 05/14/2021 0.029 0.000 - 0.034 ng/mL Final Comment: . 05/13/2021 0.033 0.000 - 0.034 ng/mL Final Comment: . 05/13/2021 0.035 (H) 0.000 - 0.034 ng/mL Final Comment: . 01/31/2021 0.027 0.000 - 0.034 ng/mL Final Comment: . TROPONIN I, HIGH SENSITIVITY Troponin HS Serial Baseline Date Value Ref Range Status 01/28/2025 32 <=35 ng/L Final Comment: In individuals presenting with symptoms > 2h, a baseline troponin <= 5 ng/L suggests acute cardiac injury is unlikely and further serial testing is generally not indicated. No results found for: TROPHS2 No results found for: TROPDELTBASE No results found for: TROPHS3 No results found for: TROPDELTSEC Recent Labs 01/29/25 0606 01/29/25 1710 01/30/25 1130 01/30/25 1539 NA 141 141 141 141 K 2.8* 3.4* 3.6 3.6 CL 109* 106 106 106 CO2 22* 24 21* 21* BUN 36* 36* 32* 32* CREATININE 1.84* 2.08* 1.78* 1.95* Recent Labs 01/29/25 0606 01/29/25 1710 01/30/25 1539 WBC 4.8 5.3 5.0 HGB 13.7 15.1 14.9 HCT 42.1 46.3 45.8 MCV 87.5 87.9 88.8 PLT 206 199 205 No results for input(s): BNP in the last 72 hours. No results for input(s): TRIG, HDL, LDLCALC, CHOL in the last 72 hours. No results found for: LDLCHOLESTER No results found for: TSH No results found for: EFBP, PLVEF, LVEFPHYS, LVEF2D, EF 03/20/22 (Final) Narrative Ordered by an unspecified provider. Other reports reviewed: Cardiac Tests: ECG: Tracing reviewed. Telemetry findings reviewed: paced No results found for: EFBP, PLVEF, LVEFPHYS, LVEF2D, EF Dena Curtis APRN - [facility] Date Of Service 01/31/2025 [1] cholecalciferol, 25 mcg, Oral, Daily clotrimazole, , Topical, BID cyanocobalamin, 1,000 mcg, Oral, Daily ferrous sulfate, 325 mg, Oral, Daily with breakfast furosemide, 80 mg, IntraVENous, BID gabapentin, 100 mg, Oral, BID [Held by provider] glipiZIDE, 2.5 mg, Oral, qAM AC heparin, 5,000 Units, SubCUTAneous, 3 times per day insulin lispro, 0-12 Units, SubCUTAneous, TID WC And insulin lispro, 0-12 Units, SubCUTAneous, Nightly levothyroxine, 25 mcg, Oral, Daily metoprolol succinate XL, 100 mg, Oral, Daily pantoprazole, 40 mg, Oral, qAM AC sacubitril-valsartan, 1 tablet, Oral, BID sertraline, 25 mg, Oral, Daily sucralfate, 1 g, Oral, BID AC tamsulosin, 0.4 mg, Oral, Daily therapeutic multivitamin-minerals, 1 tablet, Oral, Daily [Held by provider] torsemide, 20 mg, Oral, BID [2] * Marco Antonio Hall Jr., DO - 01/31/2025 6:56 AM EDT Attending Supervising Physician's Attestation Statement for Progress Note I have discussed the care of Megan Nascimento with the medical student and/or resident. I have personally taken a history, examined the patient, and performed the associated medical decision making activities. I have reviewed & verified the attested documentation. Unless otherwise noted below, this documentation reflects the history, physical exam, and medical decision making that I performedmyself. Please see below for my personal highlights or additions to the note in BOLD. Hospitalist Progress Note 01/31/2025 Subjective: Admit Date: 01/28/2025 PCP: Gibson Roth (Inactive) Room#: [id number] B BRIEF HOSPITAL COURSE: 84-year-old male presented worsening lower extremity edema over the last 3 weeks, scrotal edema in the last few days. Failed outpatient trial of increased oral diuretics. Admitted for CHF exacerbation. Seen by cardiology in the ED, received IV diuresis. Of note patient has had issues with urinary retention lately. Past medical history of HFrEF EF 41% 2021, AICD, CKD 3, history of DVT/PE, hypertension, hyperlipidemia, diabetes, hypothyroidism, non-Hodgkin's lymphoma, bladder cancer. Interval History: Overnight events - none Nursing concerns - none Subjectively, no physical complaints. Questions about general course of therapy answered. Objectively, Vitals stable, on room air K 2.8 - 3.4 - 3.6 BUN - 36-36 - 32 Cr 1.84 - 2.08 - 1.78 - 1.95 Ical 4.30 Mag 1.7 - 2.0 Phos - 2.4 CBC stable Urine 1.3 L last 2h Stool 1x Adult diet Regular; Low Sodium (2 gm); 5 carb choices (75 gm/meal) 24HR INTAKE/OUTPUT: Intake/Output Summary (Last 24 hours) at 01/31/2025 0656 Last data filed at 01/31/2025 0535 Gross per 24 hour Intake 1240 ml Output 1350 ml Net -110 ml Past Medical History: Medical History[1] LABS: CBC: Recent Labs 01/29/25 0601/29/25 17101/30/25 1539 WBC 4.8 5.3 5.0 RBC 4.81 5.27 5.16 HGB 13.7 15.1 14.9 HCT 42.1 46.3 45.8 MCV 87.5 87.9 88.8 RDW 19.0* 19.6* 19.5* PLT 206 199 205 BMP: Recent Labs 01/29/25 1710 01/30/25 1130 01/30/25 1539 NA 141 141 141 K 3.4* 3.6 3.6 CL 106 106 106 CO2 24 21* 21* BUN 36* 32* 32* CREATININE 2.08* 1.78* 1.95* GLUCOSE 107 128* 144* CALCIUM 9.6 9.4 9.1 ANIONGAP 11 14* 14* Objective: Vitals: BP 134/80 Pulse 84 Temp 36.1 C (97 F) (Temporal) Resp 20 Ht 5' 7 (1.702 m) Wt 188 lb (85.3 kg) SpO2 95% BMI 29.44 kg/m Pulse Ox: SpO2 Av.6 % Min: 95 % Max: 98 % Supplemental O2: Physical Exam Vitals reviewed. Constitutional: General: He is not in acute distress. Appearance: Normal appearance. He is not toxic-appearing. Eyes: Extraocular Movements: Extraocular movements intact. Cardiovascular: Rate and Rhythm: Normal rate and regular rhythm. Heart sounds: No murmur heard. No gallop. Pulmonary: Effort: Pulmonary effort is normal. No respiratory distress. Breath sounds: Normal breath sounds. No wheezing or rales. Comments: Mild crackles mid and lower lung liu, sounds more open than yesterday Abdominal: Palpations: Abdomen is soft. Tenderness: There is no abdominal tenderness. There is no guarding. Musculoskeletal: Right lower leg: Edema present. Left lower leg: Edema present. Comments: Piting edema upto the thighs Skin: General: Skin is warm and dry. Neurological: Mental Status: He is alert and oriented to person, place, and time. Psychiatric: Mood and Affect: Mood normal. Behavior: Behavior normal. Thought Content: Thought content normal. Judgment: Judgment normal. Medications: Scheduled PRN Scheduled Meds[2] PRN Meds[3] Continuous Continuous Meds[4] Assessment Data: (CAT1) Reviewed 3 or more notes from different specialty or health system (each=1). (LOW: 2x CAT1 or independent historian MOD: 3x CAT1 or 1x CAT3 EXTENSIVE: 3x CAT1 and 1x CAT3) Acute, acute on chronic, unstable/uncontrolled chronic problems/diagnoses: Acute exacerbation of HFrEF Metoprolol 100 twice daily Entresto low-dose twice daily IV lasix 80 BID per cards Stable chronic problems affecting care, new non-acute diagnoses: CKD 3, history of DVT/PE, not on anticoagulation hypertension, hyperlipidemia, Diabetes Gabapentin 100 twice daily Glipizide 2.5 oral daily before breakfast Low-dose sliding scale Hypothyroidism -Synthroid 25 mcg daily non-Hodgkin's lymphoma, bladder cancer GERD-on sucralfate 1 g twice daily, Protonix 40 daily BPH-tamsulosin 0.4 mg oral Anxiety/depression-Zoloft 25 daily Plan As a result of the above findings & factors, the following mgmt was pursued: Acute exacerbation of HFrEF HF following Current diuresis IV furosemide 80 mg twice daily, continue BID labs Rest meds as above Previously taken off Spirolactone due to renal dysfunction and potassium abnormalities 2. Inguinal rash Clotrimazole, bid - am labs, replace lytes prn - PT/OT/CM/SW - delirium precautions: increase activity - DVT prophylaxis: heparin Complexity: Chronic illness with severe exacerbation, progression, or side effect of tx (HIGH). Risk: Prescription drug/IVF/colloid was initiated, discontinued, adjusted; or reviewed with decision to maintain current orders (MOD). Advance Directive: Full Code Anticipated Discharge - Date - 3- 4 days - Location - Home - Pending the following - resolution of volume overload and clinical stability Total time spent (which include face to face and non face to face encounters) : 41 minutes Toxic drug monitoring/narrow therapeutic index drug monitoring : # Drug name : lasix 80 BID # Route administered : IV # Method of monitoring : BID labs Extended Emergency Contact Information Primary Emergency Contact: Zuleyka Nascimento Mobile Relation: Meter/Relay Craftsman Secondary Emergency Contact: Shaylee Nascimento Relation: Child Elarl Sanchez DO Division of Hospitalist Medicine [facility] [1] Past Medical History: Diagnosis Date Acute HFrEF (heart failure with reduced ejection fraction) ([facility]) 09/22/2020 Bladder cancer ([facility]) CHF (congestive heart failure) ([facility]) Chronic HFrEF (heart failure with reduced ejection fraction) ([facility]) 09/21/2020 Chronic kidney disease DM (diabetes mellitus) (HCC) DM (diabetes mellitus) ([facility]) DVT (deep venous thrombosis) ([facility]) ED (erectile dysfunction) Follicular non-Hodgkin's lymphoma ([facility]) GERD (gastroesophageal reflux disease) GERD (gastroesophageal reflux disease) HTN (hypertension) HTN (hypertension) Hyperlipidemia Left bundle branch block 09/11/2020 Non-ischemic cardiomyopathy (CMS/HCC) ([facility]) Presence of cardiac resynchronization therapy defibrillator (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) 01/17/2022 PUD (peptic ulcer disease) Pulmonary embolism ([facility]) Pulmonary fibrosis ([facility]) Rosacea Stage 3b chronic kidney disease ([facility]) 09/21/2020 Tachycardia [2] cholecalciferol, 25 mcg, Oral, Daily clotrimazole, , Topical, BID cyanocobalamin, 1,000 mcg, Oral, Daily ferrous sulfate, 325 mg, Oral, Daily with breakfast furosemide, 80 mg, IntraVENous, BID gabapentin, 100 mg, Oral, BID [Held by provider] glipiZIDE, 2.5 mg, Oral, qAM AC heparin, 5,000 Units, SubCUTAneous, 3 times per day insulin lispro, 0-12 Units, SubCUTAneous, TID WC And insulin lispro, 0-12 Units, SubCUTAneous, Nightly levothyroxine, 25 mcg, Oral, Daily metoprolol succinate XL, 100 mg, Oral, Daily pantoprazole, 40 mg, Oral, qAM AC sacubitril-valsartan, 1 tablet, Oral, BID sertraline, 25 mg, Oral, Daily sucralfate, 1 g, Oral, BID AC tamsulosin, 0.4 mg, Oral, Daily therapeutic multivitamin-minerals, 1 tablet, Oral, Daily [Held by provider] torsemide, 20 mg, Oral, BID [3] PRN medications: dextrose, dextrose, glucagon (rDNA), glucose, loperamide [4] * Aleksandra Pak RD - 01/30/2025 10:10 AM EDT Nutrition Assessment Type and Reason for Visit: Initial, Positive Nutrition Screen (wound) Nutrition Recommendations/Plan: Per MNT: liberalize diet to Regular/5 carb choices/2gm Sodium to allow for add'l meal options and promote po intake. Add Magic Cup daily (4oz, 290kcal, 9gm protein). Recommend record po intake in I/O flowsheet to monitor. RD will follow weekly. Malnutrition Assessment: Malnutrition Status: No malnutrition Nutrition Assessment: 84yo male admitted 01/28 with CHF. PMH includes HF, CKD3, DM, non-Hodgkin's lymphoma, GERD, HTN, HLD, PUD, pulmonary fibrosis. Labs (01/29) K+ low 3.4, BUN elevated 36, Cr elevated 2.08, Glucose elevated 107/138. Medications reviewed. Regular/5 carb choices/Cardiac diet. Per chart, dry target weight is 180#. Pt reports variable appetite/intake. Reports eating half a bagel with cream cheese for bfst today. Denies N/V/abd pain. Denies chew/swallow difficulty. +BM. Pt follow low sodium diet at home: makes most of own food, uses Mrs. Camacho, uses mostly frozen vegetables, rinses occasional canned vegetables.Pt reports UBW to be 180-185# and this has been stable aside from fluid retention recently. RD reviewed/encouraged high protein foods with meals. Pt willing to receive Magic Cup. Estimated Daily Nutrient Needs: Energy Requirements Based On: Kcal/kg Weight Used for Energy Requirements: [place] Weight for Energy Calculation (kg): 67 kg Total Energy Requirements (kcals/day): 25-28 kcal/kg = 3886-9253 kcal Weight Used for Protein Requirements: [place] Weight in Kg Used for Protein Requirements: 67 kg Estimated Total Protein (g/day): 1-1.2 gm/kg = 67-80 gm Estimated Daily Total Fluid (ml/day): per MD recommendations Nutrition Related Findings: -4.4# of fluid since 01/28, -I/O, +3 BLE edema, Simon 21, missing teeth, GI WDL, BM 01/28 Wound Type: Pressure Injury, Wound Consult Pending (coccyx) Current Nutrition Therapies: Adult diet Regular; 5 carb choices (75 gm/meal); Low Fat/Low Chol/High Fiber/2 gm Na Current Oral Intake Average Meal Intake: 51-75%, 76-100% (x 2 recorded meals 01/29) Average Supplements Intake: None Ordered Anthropometric Measures: Height: 170.2 cm (5' 7) Current Body Weight: 85.8 kg (189 lb 3.2 oz) Weight Source: Standing Scale Admission Body Weight: 87.8 kg (193 lb 9.6 oz) (standing 01/28) [place] Body Weight (lbs) (Calculated): 148 lbs [place] Body Weight (Kg) (Calculated): 67 kg % [place] Body Weight (Calculated): 127.8 % BMI (kg/m2) (Calculated): 29.6 Nutrition Diagnosis: Increased nutrient needs related to increase demand for energy/nutrients as evidenced by wounds Nutrition Interventions: Nutrition Education/Counseling: No recommendation at this time Coordination of Nutrition Care: Continue to monitor while inpatient Goals: Goals: PO intake 75% or greater Nutrition Monitoring and Evaluation: Behavioral-Environmental Outcomes: None Identified Food/Nutrient Intake Outcomes: Food and Nutrient Intake, Supplement Intake Physical Signs/Symptoms Outcomes: Biochemical Data, GI Status, Fluid Status or Edema, Nutrition Focused Physical Findings, Skin, Weight Discharge Planning: Too soon to determine Aleksandra Pak RD Contact: Actif[employer] chat or *[phone] * Jabrai Osman PA-C - 01/30/2025 8:05 AM EDT [facility] Cardiology /Electrophysiology Progress Note HPI / Interval History: Pt is a 84 year old male with a PMH significant for chronic HFrEF, NICM, 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 NT Pro BNP 23,300, troponin negative, CXR with pulmonary vascular congestion, bilateral pleural effusions, EKG paced. Cardiology consulted and Pt found to be massively hypervolemic, started on IV diuresis. Last echocardiogram in 2021 with LVEF=41%, normal RV systolic function. Today he reports he had a lot of UOP yesterday. He has ongoing leg swelling but states this is improved from previous. He denies chest pain, light-headedness, dizziness, syncope. Assessment/Plan HF NYHA Class [] I [] II [] III [] IV []Unable to assess [] N/A #Acute on chronic HFrEF, NICM, stage C. NYHA - unable to assess as Pt not OOB -VSS. He is warm and massively hypervolemic on exam, + JVD, he is currently on furosemide 80 mg IV BID with good response, -3.4 L UOP yesterday, continue for now -He is on low dose Entresto, Toprol-XL 100 mg daily-> continue -Repeat labs remain pending, this should be completed today, closely monitor K+/Mg on IV diuretic and replace electrolytes as needed -No MRA/SGL2i 2/2 CKD IV -Update echocardiogram given Pt presenting with ADHF -Strict I&Os, daily standing weights, 1.8 g Na diet, and 64 oz fluid restriction #HTN -BP at goal on low dose Entresto, pending renal function/ electrolytes consider increase in dose tomorrow #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 Medications: Scheduled Meds[1] Infusion Medications: Continuous Meds[2] Physical Examination: Vitals: 01/30/25 0143 01/30/25 0612 01/30/25 1000 01/30/25 1038 BP: 129/66 144/73 120/68 BP Location: Right arm Right arm Patient Position: Lying Pulse: 79 77 69 Resp: 16 18 Temp: (!) 35.8 C (96.5 F) (!) 35.7 C (96.2 F) 36.2 C (97.2 F) TempSrc: Temporal Temporal Temporal SpO2: 98% 98% 95% Weight: 189 lb 3.2 oz (85.8 kg) Height: 5' 7 (1.702 m) Intake/Output Summary (Last 24 hours) at 01/30/2025 1059 Last data filed at 01/30/2025 0900 Gross per 24 hour Intake 240 ml Output 2850 ml Net -2610 ml Patient Vitals for the past 168 hrs: Weight Weight Method 01/30/25 0143 189 lb 3.2 oz (85.8 kg) Standing scale 01/29/25 0300 192 lb 8 oz (87.3 kg) Bed scale 01/28/25 1719 193 lb 9.6 oz (87.8 kg) Standing scale 01/28/25 0157 195 lb 8 oz (88.7 kg) Bed scale Physical Exam Vitals reviewed. Constitutional: General: He is not in acute distress. Appearance: He is not ill-appearing. Neck: Vascular: JVD present. Comments: + JVD Cardiovascular: Rate and Rhythm: Normal rate and regular rhythm. Pulmonary: Breath sounds: Rales (bilateral lower lobes) present. No wheezing or rhonchi. Musculoskeletal: Right lower leg: Edema (2+ edema) present. Left lower leg: Edema (2+ edema) present. Skin: General: Skin is warm. Neurological: Mental Status: He is alert. Mental status is at baseline. Psychiatric: Mood and Affect: Mood normal. Laboratory Tests: TROPONIN I, CONVENTIONAL SENSITIVITY TROPONIN I Date Value Ref Range Status 05/14/2021 0.029 0.000 - 0.034 ng/mL Final Comment: . 05/14/2021 0.029 0.000 - 0.034 ng/mL Final Comment: . 05/13/2021 0.033 0.000 - 0.034 ng/mL Final Comment: . 05/13/2021 0.035 (H) 0.000 - 0.034 ng/mL Final Comment: . 01/31/2021 0.027 0.000 - 0.034 ng/mL Final Comment: . TROPONIN I, HIGH SENSITIVITY Troponin HS Serial Baseline Date Value Ref Range Status 01/28/2025 32 <=35 ng/L Final Comment: In individuals presenting with symptoms > 2h, a baseline troponin <= 5 ng/L suggests acute cardiac injury is unlikely and further serial testing is generally not indicated. No results found for: TROPHS2 No results found for: TROPDELTBASE No results found for: TROPHS3 No results found for: TROPDELTSEC Recent Labs 01/28/25 0238 01/29/25 0606 01/29/25 1710 NA 141 141 141 K 4.2 2.8* 3.4* CL 106 109* 106 CO2 21* 22* 24 BUN 40* 36* 36* CREATININE 2.37* 1.84* 2.08* Recent Labs 01/28/25 0238 01/29/25 0601/29/25 1710 WBC 5.9 4.8 5.3 HGB 15.2 13.7 15.1 HCT 46.0 42.1 46.3 MCV 87.3 87.5 87.9 PLT 230 206 199 Recent Labs 01/28/25237 BNP 23,300* No results for input(s): TRIG, HDL, LDLCALC, CHOL in the last 72 hours. No results found for: LDLCHOLESTER No results found for: TSH No results found for: EFBP, PLVEF, LVEFPHYS, LVEF2D, EF 03/20/22 (Final) Narrative Ordered by an unspecified provider. Other reports reviewed: Cardiac Tests: Telemetry findings reviewed: Paced No results found for: EFBP, PLVEF, LVEFPHYS, LVEF2D, EF Jabari Osman PA-C Date Of Service 01/30/2025 [1] cholecalciferol, 25 mcg, Oral, Daily clotrimazole, , Topical, BID cyanocobalamin, 1,000 mcg, Oral, Daily ferrous sulfate, 325 mg, Oral, Daily with breakfast furosemide, 80 mg, IntraVENous, BID gabapentin, 100 mg, Oral, BID [Held by provider] glipiZIDE, 2.5 mg, Oral, qAM AC heparin, 5,000 Units, SubCUTAneous, 3 times per day insulin lispro, 0-12 Units, SubCUTAneous, TID WC And insulin lispro, 0-12 Units, SubCUTAneous, Nightly levothyroxine, 25 mcg, Oral, Daily metoprolol succinate XL, 100 mg, Oral, Daily pantoprazole, 40 mg, Oral, qAM AC sacubitril-valsartan, 1 tablet, Oral, BID sertraline, 25 mg, Oral, Daily sucralfate, 1 g, Oral, BID AC tamsulosin, 0.4 mg, Oral, Daily therapeutic multivitamin-minerals, 1 tablet, Oral, Daily [Held by provider] torsemide, 20 mg, Oral, BID [2] * Marco Antonio Hall Jr., DO - 01/30/2025 7:14 AM EDT Attending Supervising Physician's Attestation Statement for Progress Note I have discussed the care of Megan Nascimento with the medical student and/or resident. I have personally taken a history, examined the patient, and performed the associated medical decision making activities. I have reviewed & verified the attested documentation. Unless otherwise noted below, this documentation reflects the history, physical exam, and medical decision making that I performedmyself. Please see below for my personal highlights or additions to the note in BOLD. Hospitalist Progress Note 01/30/2025 Subjective: Admit Date: 01/28/2025 PCP: Gibson Roth (Inactive) Room#: [id number] B BRIEF HOSPITAL COURSE: 84-year-old male presented worsening lower extremity edema over the last 3 weeks, scrotal edema in the last few days. Failed outpatient trial of increased oral diuretics. Admitted for CHF exacerbation. Seen by cardiology in the ED, received IV diuresis. Of note patient has had issues with urinary retention lately. Past medical history of HFrEF EF 41% 2021, AICD, CKD 3, history of DVT/PE, hypertension, hyperlipidemia, diabetes, hypothyroidism, non-Hodgkin's lymphoma, bladder cancer. Interval History: Overnight events Nursing concerns Subjectively, no questions or concerns. In general feels better. Objectively, Vitals stable, on room air, no acute distress. Piting edema upto thigh. K 2.8 - 3.4 (rep) BUN - 36-36 Cr 1.84 - 2.08 Ical 4.30 Mag 1.7 rep Phos - 2.4 Bili 1.? CBC stable Urine 2. L last 24h Adult diet Regular; 5 carb choices (75 gm/meal); Low Fat/Low Chol/High Fiber/2 gm Na 24HR INTAKE/OUTPUT: Intake/Output Summary (Last 24 hours) at 01/30/2025 0714 Last data filed at 01/30/2025 0612 Gross per 24 hour Intake 660 ml Output 3450 ml Net -2790 ml Past Medical History: Medical History[1] LABS: CBC: Recent Labs 01/28/2523701/29/25 0601/29/25 1710 WBC 5.9 4.8 5.3 RBC 5.27 4.81 5.27 HGB 15.2 13.7 15.1 HCT 46.0 42.1 46.3 MCV 87.3 87.5 87.9 RDW 19.5* 19.0* 19.6* PLT 230 206 199 BMP: Recent Labs 01/28/2523701/29/25 0601/29/25 1710 NA 141 141 141 K 4.2 2.8* 3.4* CL 106 109* 106 CO2 21* 22* 24 BUN 40* 36* 36* CREATININE 2.37* 1.84* 2.08* GLUCOSE 79* 74* 107 CALCIUM 8.7* 8.6* 9.6 ANIONGAP 14* 10 11 Objective: Vitals: BP 144/73 (BP Location: Right arm) Pulse 77 Temp (!) 35.7 C (96.2 F) (Temporal) Resp 16 Ht 5' 7 (1.702 m) Wt 189 lb 3.2 oz (85.8 kg) SpO2 98% BMI 29.63 kg/m Pulse Ox: SpO2 Av.5 % Min: 94 % Max: 98 % Supplemental O2: Physical Exam Vitals reviewed. Constitutional: General: He is not in acute distress. Appearance: Normal appearance. He is not toxic-appearing. Eyes: Extraocular Movements: Extraocular movements intact. Cardiovascular: Rate and Rhythm: Normal rate and regular rhythm. Heart sounds: No murmur heard. No gallop. Pulmonary: Effort: Pulmonary effort is normal. No respiratory distress. Breath sounds: Normal breath sounds. No wheezing or rales. Comments: Crackles throughout all lung liu No wheezes Abdominal: Palpations: Abdomen is soft. Tenderness: There is no abdominal tenderness. There is no guarding. Musculoskeletal: Right lower leg: Edema present. Left lower leg: Edema present. Comments: Piting edema upto the thighs Skin: General: Skin is warm and dry. Neurological: Mental Status: He is alert and oriented to person, place, and time. Psychiatric: Mood and Affect: Mood normal. Behavior: Behavior normal. Thought Content: Thought content normal. Judgment: Judgment normal. Medications: Scheduled PRN Scheduled Meds[2] PRN Meds[3] Continuous Continuous Meds[4] Assessment Data: (CAT1) Reviewed 3 or more notes from different specialty or health system (each=1). (LOW: 2x CAT1 or independent historian MOD: 3x CAT1 or 1x CAT3 EXTENSIVE: 3x CAT1 and 1x CAT3) Acute, acute on chronic, unstable/uncontrolled chronic problems/diagnoses: Acute exacerbation of HFrEF Metoprolol 100 twice daily Entresto low-dose twice daily IV lasix 80 BID per cards Stable chronic problems affecting care, new non-acute diagnoses: CKD 3, history of DVT/PE, not on anticoagulation hypertension, hyperlipidemia, Diabetes Gabapentin 100 twice daily Glipizide 2.5 oral daily before breakfast Low-dose sliding scale Hypothyroidism -Synthroid 25 mcg daily non-Hodgkin's lymphoma, bladder cancer GERD-on sucralfate 1 g twice daily, Protonix 40 daily BPH-tamsulosin 0.4 mg oral Anxiety/depression-Zoloft 25 daily Plan As a result of the above findings & factors, the following mgmt was pursued: Acute exacerbation of HFrEF HF following Current diuresis IV furosemide 80 mg twice daily, continue BID labs Rest meds as above Previously taken off Spirolactone due to renal dysfunction and potassium abnormalities 2. Inguinal rash Clotrimazole, bid - am labs, replace lytes prn - PT/OT/CM/SW - delirium precautions: increase activity - DVT prophylaxis: heparin Complexity: Chronic illness with severe exacerbation, progression, or side effect of tx (HIGH). Risk: Prescription drug/IVF/colloid was initiated, discontinued, adjusted; or reviewed with decision to maintain current orders (MOD). Advance Directive: Full Code Anticipated Discharge - Date - 3- 4 days - Location - Home - Pending the following - resolution of volume overload and clinical stability Total time spent (which include face to face and non face to face encounters) : 40 minutes Toxic drug monitoring/narrow therapeutic index drug monitoring : # Drug name : lasix 80 BID # Route administered : IV # Method of monitoring : BID labs Extended Emergency Contact Information Primary Emergency Contact: Zuleyka Nascimento Mobile Relation: Meter/Relay Craftsman Secondary Emergency Contact: Shaylee Nascimento Relation: Child Jeremy Sanchez DO Division of Hospitalist Medicine [facility] [1] Past Medical History: Diagnosis Date Acute HFrEF (heart failure with reduced ejection fraction) ([facility]) 09/22/2020 Bladder cancer (HCC) CHF (congestive heart failure) (HCC) Chronic HFrEF (heart failure with reduced ejection fraction) ([facility]) 09/21/2020 Chronic kidney disease DM (diabetes mellitus) (HCC) DM (diabetes mellitus) (HCC) DVT (deep venous thrombosis) ([facility]) ED (erectile dysfunction) Follicular non-Hodgkin's lymphoma (HCC) GERD (gastroesophageal reflux disease) GERD (gastroesophageal reflux disease) HTN (hypertension) HTN (hypertension) Hyperlipidemia Left bundle branch block 09/11/2020 Non-ischemic cardiomyopathy (CMS/HCC) ([facility]) Presence of cardiac resynchronization therapy defibrillator (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) 01/17/2022 PUD (peptic ulcer disease) Pulmonary embolism (HCC) Pulmonary fibrosis ([facility]) Rosacea Stage 3b chronic kidney disease ([facility]) 09/21/2020 Tachycardia [2] cholecalciferol, 25 mcg, Oral, Daily clotrimazole, , Topical, BID cyanocobalamin, 1,000 mcg, Oral, Daily ferrous sulfate, 325 mg, Oral, Daily with breakfast furosemide, 80 mg, IntraVENous, BID gabapentin, 100 mg, Oral, BID [Held by provider] glipiZIDE, 2.5 mg, Oral, qAM AC heparin, 5,000 Units, SubCUTAneous, 3 times per day insulin lispro, 0-12 Units, SubCUTAneous, TID WC And insulin lispro, 0-12 Units, SubCUTAneous, Nightly levothyroxine, 25 mcg, Oral, Daily metoprolol succinate XL, 100 mg, Oral, Daily pantoprazole, 40 mg, Oral, qAM AC sacubitril-valsartan, 1 tablet, Oral, BID sertraline, 25 mg, Oral, Daily sucralfate, 1 g, Oral, BID AC tamsulosin, 0.4 mg, Oral, Daily therapeutic multivitamin-minerals, 1 tablet, Oral, Daily [Held by provider] torsemide, 20 mg, Oral, BID [3] PRN medications: dextrose, dextrose, glucagon (rDNA), glucose, loperamide [4] * Marco Antonio Hall Jr., DO - 01/29/2025 7:45 AM EDT Attending Supervising Physician's Attestation Statement for Progress Note I have discussed the care of Megan Nascimento with the medical student and/or resident. I have personally taken a history, examined the patient, and performed the associated medical decision making activities. I have reviewed & verified the attested documentation. Unless otherwise noted below, this documentation reflects the history, physical exam, and medical decision making that I performedmyself. Please see below for my personal highlights or additions to the note in BOLD. Hospitalist Progress Note 01/29/2025 Subjective: Admit Date: 01/28/2025 PCP: Gibson Roth (Inactive) Room#: W5-351/W5-096 B BRIEF HOSPITAL COURSE: 84-year-old male presented worsening lower extremity edema over the last 3 weeks, scrotal edema in the last few days. Failed outpatient trial of increased oral diuretics. Admitted for CHF exacerbation. Seen by cardiology in the ED, received IV diuresis. Of note patient has had issues with urinary retention lately. Past medical history of HFrEF EF 41% 2021, AICD, CKD 3, history of DVT/PE, hypertension, hyperlipidemia, diabetes, hypothyroidism, non-Hodgkin's lymphoma, bladder cancer. Interval History: No overnight issues. Case and plan discussed with patient and bedside nurse. All questions answered. Seen and examined bedside. Awake, alert, oriented x4. Daugther bedside. States he had a trip to [place] couple days ago. Denies any cough, congestion, GI, issues. Cannot tell why he thinks he may be accumulating fluid in the last few weeks. Does tell me that he feels much better. Sob is better, has no more orthopnea, weakess, he feels like he has more energy, and his abdominal pain is gone. Agree. Adult diet Regular; 5 carb choices (75 gm/meal); Low Fat/Low Chol/High Fiber/2 gm Na 24HR INTAKE/OUTPUT: Intake/Output Summary (Last 24 hours) at 01/29/2025 0745 Last data filed at 01/29/2025 0054 Gross per 24 hour Intake 600 ml Output 950 ml Net -350 ml Past Medical History: Medical History[1] LABS: CBC: Recent Labs 01/28/25 0238 01/29/25 0606 WBC 5.9 4.8 RBC 5.27 4.81 HGB 15.2 13.7 HCT 46.0 42.1 MCV 87.3 87.5 RDW 19.5* 19.0* PLT 230 206 BMP: Recent Labs 01/28/258 01/29/25 0606 NA 141 141 K 4.2 2.8* CL 106 109* CO2 21* 22* BUN 40* 36* CREATININE 2.37* 1.84* GLUCOSE 79* 74* CALCIUM 8.7* 8.6* ANIONGAP 14* 10 Objective: Vitals: BP 123/67 (BP Location: Right arm, Patient Position: Lying) Pulse 67 Temp 36 C (96.8 F)(Temporal) Resp 14 Ht 5' 7 (1.702 m) Wt 192 lb 8 oz (87.3 kg) SpO2 95% BMI 30.15 kg/m Pulse Ox: SpO2 Av.6 % Min: 95 % Max: 99 % Supplemental O2: Physical Exam Vitals reviewed. Constitutional: General: He is not in acute distress. Appearance: Normal appearance. He is not toxic-appearing. Eyes: Extraocular Movements: Extraocular movements intact. Cardiovascular: Rate and Rhythm: Normal rate and regular rhythm. Heart sounds: No murmur heard. No gallop. Pulmonary: Effort: Pulmonary effort is normal. No respiratory distress. Breath sounds: Normal breath sounds. No wheezing or rales. Comments: Crackles throughout all lung liu No wheezes Abdominal: Palpations: Abdomen is soft. Tenderness: There is no abdominal tenderness. There is no guarding. Musculoskeletal: Right lower leg: Edema present. Left lower leg: Edema present. Comments: Piting edema upto the thighs Skin: General: Skin is warm and dry. Neurological: Mental Status: He is alert and oriented to person, place, and time. Psychiatric: Mood and Affect: Mood normal. Behavior: Behavior normal. Thought Content: Thought content normal. Judgment: Judgment normal. Medications: Scheduled PRN Scheduled Meds[2] PRN Meds[3] Continuous Continuous Meds[4] Assessment Data: (CAT1) Reviewed 3 or more notes from different specialty or health system (each=1). (LOW: 2x CAT1 or independent historian MOD: 3x CAT1 or 1x CAT3 EXTENSIVE: 3x CAT1 and 1x CAT3) Acute, acute on chronic, unstable/uncontrolled chronic problems/diagnoses: Acute exacerbation of HFrEF Metoprolol 100 twice daily Entresto low-dose twice daily IV lasix 80 BID per cards Stable chronic problems affecting care, new non-acute diagnoses: CKD 3, history of DVT/PE, not on anticoagulation hypertension, hyperlipidemia, Diabetes Gabapentin 100 twice daily Glipizide 2.5 oral daily before breakfast Low-dose sliding scale Hypothyroidism -Synthroid 25 mcg daily non-Hodgkin's lymphoma, bladder cancer GERD-on sucralfate 1 g twice daily, Protonix 40 daily BPH-tamsulosin 0.4 mg oral Anxiety/depression-Zoloft 25 daily Plan As a result of the above findings & factors, the following mgmt was pursued: Acute exacerbation of HFrEF HF following Current diuresis IV furosemide 80 mg twice daily, continue BID labs Rest meds as above Previously taken off Spirolactone due to renal dysfunction and potassium abnormalities - am labs, replace lytes prn - PT/OT/CM/SW - delirium precautions: increase activity - DVT prophylaxis: heparin Complexity: Chronic illness with severe exacerbation, progression, or side effect of tx (HIGH). Risk: Prescription drug/IVF/colloid was initiated, discontinued, adjusted; or reviewed with decision to maintain current orders (MOD). Advance Directive: No Order Anticipated Discharge - Date - 3- 4 days - Location - Home - Pending the following - resolution of volume overload and clinical stability Total time spent (which include face to face and non face to face encounters) : 43 minutes Toxic drug monitoring/narrow therapeutic index drug monitoring : # Drug name : lasix 80 BID # Route administered : IV # Method of monitoring : BID labs Extended Emergency Contact Information Primary Emergency Contact: Zuleyka Nascimento Mobile Relation: Meter/Relay Craftsman Secondary Emergency Contact: Shaylee Nascimento Relation: Child Jeremy Sanchez DO Division of Hospitalist Medicine [facility] [1] Past Medical History: Diagnosis Date Acute HFrEF (heart failure with reduced ejection fraction) ([facility]) 09/22/2020 Bladder cancer (HCC) CHF (congestive heart failure) (HCC) Chronic HFrEF (heart failure with reduced ejection fraction) ([facility]) 09/21/2020 Chronic kidney disease DM (diabetes mellitus) (HCC) DM (diabetes mellitus) (HCC) DVT (deep venous thrombosis) (HCC) ED (erectile dysfunction) Follicular non-Hodgkin's lymphoma (HCC) GERD (gastroesophageal reflux disease) GERD (gastroesophageal reflux disease) HTN (hypertension) HTN (hypertension) Hyperlipidemia Left bundle branch block 09/11/2020 Non-ischemic cardiomyopathy (CMS/HCC) ([facility]) Presence of cardiac resynchronization therapy defibrillator (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) 01/17/2022 PUD (peptic ulcer disease) Pulmonary embolism (HCC) Pulmonary fibrosis (HCC) Rosacea Stage 3b chronic kidney disease ([facility]) 09/21/2020 Tachycardia [2] cholecalciferol, 25 mcg, Oral, Daily cyanocobalamin, 1,000 mcg, Oral, Daily ferrous sulfate, 325 mg, Oral, Daily with breakfast furosemide, 80 mg, IntraVENous, BID gabapentin, 100 mg, Oral, BID glipiZIDE, 2.5 mg, Oral, qAM AC insulin lispro, 0-12 Units, SubCUTAneous, TID WC And insulin lispro, 0-12 Units, SubCUTAneous, Nightly levothyroxine, 25 mcg, Oral, Daily metoprolol succinate XL, 100 mg, Oral, Daily pantoprazole, 40 mg, Oral, qAM AC sacubitril-valsartan, 1 tablet, Oral, BID sertraline, 25 mg, Oral, Daily sucralfate, 1 g, Oral, BID AC tamsulosin, 0.4 mg, Oral, Daily therapeutic multivitamin-minerals, 1 tablet, Oral, Daily [Held by provider] torsemide, 20 mg, Oral, BID [3] PRN medications: dextrose, dextrose, glucagon (rDNA), glucose [4] * CHLOE Tan CNP - 01/28/2025 12:50 PM EDT CARE PROGRESSION NOTE Diet order placed while pending transfer to [facility]. This patient was seen as a hospital courtesy for improved patient care and care progression. Thank you for allowing me to participate in the medical care of your patient. OSCAR INTERVENTIONS [x] Care Coordination & Progression [] Nursing Function [x] Orders Placed [] Symptom Assessment [] Patient Experience [] Patient / Caregiver Conversation documented in this [facility]07-14-2025 Plan of care note* Care Plan - Marshall Glez RN - 01/31/2025 9:20 PM EDT Problem: Knowledge Deficit Goal: Patient/family/caregiver demonstrates understanding of disease process, treatment plan, medications, and discharge instructions Outcome: Progressing Problem: Hemodynamic Status Goal: Patient's vitals signs are stable Outcome: Progressing Problem: Excessive Fluid Volume Goal: Fluid and electrolyte balance are achieved/maintained Outcome: Progressing Problem: Inadequate Gas Exchange Goal: Patient is adequately oxygenated and ventilation is improved Outcome: Progressing Goal: Nutritional status is improving Outcome: Progressing Problem: Activity Intolerance/Impaired Mobility Goal: Mobility/activity is maintained at optimum level for patient Outcome: Progressing Problem: Nutrition Goal: Nutritional status is improving Outcome: Progressing Problem: Pain - Adult Goal: Verbalizes/displays adequate comfort level or baseline comfort level Outcome: Progressing Problem: Safety - Adult Goal: Free from fall injury Outcome: Progressing Problem: Problem Interventions Goal: Promote nutritional intake Outcome: Progressing [id number]* Care Coordination - Nelly Pisano RN - 01/31/2025 11:55 AM EDT Care Managment Initial Assessment Date: 01/31/2025 Patient Name: Megan Nascimento : 1940 Patient Information Source of Information: Patient Cognition/Language: WFL - Within Functional Limits Permission given to speak with patient food service representative/caregiver as indicated: Yes Confirmation of Payer with patient/family: Yes Payer Name: [facility] Medicare advantage : No Confirmation of Primary Care Physician: Confirmed PCP Name: Dr Adonis Roth Seen in last 2 years?: Yes Primary Caregiver: Self If assistance needed, confirmed caregiver ready, willing and able to care for patient at discharge: Confirmed with: Living Arrangements Current Residence: Apartment Number of Floors 1 Number of Entry Steps: Bed/Bath Levels: Both first floor Facility: Facility Name: Plan to Return: Lives with: Alone Support Systems: Children, Family members, Friends/neighbors, export sales manager/social science teacher, Home carestaff Activities of Daily Living Ambulation: Independent Bathing/Dressing: Independent Elimination/Continence/Toileting: Independent Feeding: Independent Who Assists with Activities of Daily Living: Instrumental Activities of Daily Living Prescription Coverage: Yes Pharmacy Used: [facility] Medication Management: Independent Transportation/Shopping: Independent Transportation Mode: Car Needs Assistance with Transportation at Discharge: No Meal Preparation: Independent Laundry/Cleaning: Independent Finances/Bill Paying: Independent Communication: Independent Types of Care Services/Equipment Utilized Care Services: (n/a) Dialysis Type: NA Durable Medical Equipment: Cane, Walker DME Provider: His daughter is his critical care registered nurse Patient's Goal/Discharge Plan Patient expects to be discharged to: home Discharge Planning Actions: Continue to follow Patient's Choice Rights and [employer] and Collaborative Relationships Disclosed as Indicated for Post-Acute Care: Interdisciplinary Team Engagement: Social Work Referral for: Additional Information: Went into room introduced self an role to pt. He appears to be A 0x 3. He came to ER with c/o retaining fluid. Found to be in CHF. Cardiology consulted. Started on IV lasix. Needs an echo. Wants to go home when stable, will follow for needs. . Nelly Pisano RN [facility]07-14-2025 Note* Care Coordination - Nelly Pisano RN - 01/31/2025 11:55 AM EDT Care Managment Initial Assessment Date: 01/31/2025 Patient Name: Megan Nascimento : 1940 Patient Information Source of Information: Patient Cognition/Language: WFL - Within Functional Limits Permission given to speak with patient food service representative/caregiver as indicated: Yes Confirmation of Payer with patient/family: Yes Payer Name: [employer] Medicare advantage [place]: No Confirmation of Primary Care Physician: Confirmed PCP Name: Dr Adonis Roth Seen in last 2 years?: Yes Primary Caregiver: Self If assistance needed, confirmed caregiver ready, willing and able to care for patient at discharge: Confirmed with: Living Arrangements Current Residence: Apartment Number of Floors 1 Number of Entry Steps: Bed/Bath Levels: Both first floor Facility: Facility Name: Plan to Return: Lives with: Alone Support Systems: Children, Family members, Friends/neighbors, export sales manager/social science teacher, Home carestaff Activities of Daily Living Ambulation: Independent Bathing/Dressing: Independent Elimination/Continence/Toileting: Independent Feeding: Independent Who Assists with Activities of Daily Living: Instrumental Activities of Daily Living Prescription Coverage: Yes Pharmacy Used: [facility] Medication Management: Independent Transportation/Shopping: Independent Transportation Mode: Car Needs Assistance with Transportation at Discharge: No Meal Preparation: Independent Laundry/Cleaning: Independent Finances/Bill Paying: Independent Communication: Independent Types of Care Services/Equipment Utilized Care Services: (n/a) Dialysis Type: NA Durable Medical Equipment: Cane, Walker DME Provider: His daughter is his critical care registered nurse Patient's Goal/Discharge Plan Patient expects to be discharged to: home Discharge Planning Actions: Continue to follow Patient's Choice Rights and [employer] and Collaborative Relationships Disclosed as Indicated for Post-Acute Care: Interdisciplinary Team Engagement: Social Work Referral for: Additional Information: Went into room introduced self an role to pt. He appears to be A 0x 3. He came to ER with c/o retaining fluid. Found to be in CHF. Cardiology consulted. Started on IV lasix. Needs an echo. Wants to go home when stable, will follow for needs. . Nelly Pisano RN [id number] Nurse Note* Saundra Vinson RN - 01/31/2025 10:00 AM EDT Wound Care consulted for Pressure Injury Prevention. Pt's Simon score = 21 on 01/30/2025 at this time the pt is no longer at risk per Simon Scale. Pt in bed for assessment, turned for posterior assessment independently. Pt's pressure points assessed: Pt's Heels, Buttocks/Sacrum/Coccyx, Back, Elbows, Occiput and Ears are all blanching and intact. Bilateral Heels (edema noted) and Coccyx see media image. Pt denies pain. Instructed pt on pressure injury prevention and importance of turning/postioning every 2 hrs while in bed and every 15 min while sitting in chair. Pt verbalized understanding. Assisted pt to restroom with wheeled walker and returned to bed (see below for additional care given). Prevention Measures in place, including: [place] sheet with pillows (in place), Pt declined Bilateralfoam heel protectors, off loading heels on pillows, Sacral foam and, Zinc/Moisture Barrier ointment. Moisture absorbant pad (in place), Bed Alarm On. Skin Care precaution order set in place d/t Simon score 18 on 01/28/2025. Dietitian consult in place. PT consult NA Simon > 3. D/W stack yield engineer skin assessment, preventions, and interventions implemented. Will continue to follow pt. Please Voicera for any questions or concerns. 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 NT Pro BNP 23,300, troponin negative, CXR with pulmonary vascular congestion, bilateral pleural effusions, EKG paced. Cardiology consulted and Pt found to be massively hypervolemic, started on IV diuresis. Last echocardiogram in 2021 with LVEF=41%, normal RV systolic function Today, Mr. Nascimento states he is feeling much better. He no longer feels as bloated in his abdomen, still has alessio lower extremity edema but not as tight. Continues to urinate briskly. He just ambulated to the restroom and did not feel SOB. Denies any orthopnea or chest pain overnight. Assessment/Plan #Acute on chronic HFrEF, NICM, stage C. NYHA - unable to assess as Pt not OOB -He remains warm and hypervolemic with JVP to at least mid neck. UOP 2L ovenrihgt with great improvement in symptoms. Will continue Lasix 80mg IV BID. -He is on low dose Entresto, Toprol-XL 100 mg daily-> continue - labs need competed today. Will monitor for results, and replace electrolytes as needed -No MRA/SGL2i 2/2 CKD IV -TTE pending -Strict I&Os, daily standing weights, 1.8 g Na diet, and 64 oz fluid restriction #HTN -SBP 120-130s. Continue GDMT #S/p 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 -Following in our device clinic, last cardiac device check with SUBWAY TRAIN DRIVER=98%, no events Addendum 1350: labs reviewed for stable renal function (scr 1.9) on IV diuresis. K+ repleted Medications: Scheduled Meds[1] Infusion Medications: Continuous Meds[2] Physical Examination: Vitals: 01/30/25 2325 01/31/25 0348 01/31/25 0522 01/31/25 0816 BP: 118/64 134/80 125/68 BP Location: Left arm Patient Position: Lying Pulse: 74 84 76 Resp: 16 20 18 Temp: 36 ?C (96.8 ?F) 36.1 ?C (97 ?F) 36.1 ?C (97 ?F) TempSrc: Temporal Temporal Temporal SpO2: 98% 95% 95% Weight: 188 lb (85.3 kg) Height: Intake/Output Summary (Last 24 hours) at 01/31/2025 0934 Last data filed at 01/31/2025 0816 Gross per 24 hour Intake 1120 ml Output 1250 ml Net -130 ml Patient Vitals for the past 168 hrs: Weight Weight Method 01/31/25 0522 188 lb (85.3 kg) Standing scale 01/30/25 0143 189 lb 3.2 oz (85.8 kg) Standing scale 01/29/25 0300 192 lb 8 oz (87.3 kg) Bed scale 01/28/25 1719 193 lb 9.6 oz (87.8 kg) Standing scale 01/28/25 0157 195 lb 8 oz (88.7 kg) Bed scale Physical Exam Vitals reviewed. Constitutional: Appearance: He is obese. Neck: Vascular: JVD present. Cardiovascular: Rate and Rhythm: Normal rate and regular rhythm. Heart sounds: No murmur heard. Pulmonary: Effort: Pulmonary effort is normal. Breath sounds: Normal breath sounds. No wheezing or rales. Abdominal: General: There is no distension. Musculoskeletal: Right lower le+ Pitting Edema present. Left lower le+ Pitting Edema present. Skin: General: Skin is warm and dry. Neurological: Mental Status: He is alert. Laboratory Tests: TROPONIN I, CONVENTIONAL SENSITIVITY TROPONIN I Date Value Ref Range Status 05/14/2021 0.029 0.000 - 0.034 ng/mL Final Comment: . 05/14/2021 0.029 0.000 - 0.034 ng/mL Final Comment: . 05/13/2021 0.033 0.000 - 0.034 ng/mL Final Comment: . 05/13/2021 0.035 (H) 0.000 - 0.034 ng/mL Final Comment: . 01/31/2021 0.027 0.000 - 0.034 ng/mL Final Comment: . TROPONIN I, HIGH SENSITIVITY Troponin HS Serial Baseline Date Value Ref Range Status 01/28/2025 32 <=35 ng/L Final Comment: In individuals presenting with symptoms > 2h, a baseline troponin <= 5 ng/L suggests acute cardiac injury is unlikely and further serial testing is generally not indicated. No results found for: TROPHS2 No results found for: TROPDELTBASE No results found for: TROPHS3 No results found for: TROPDELTSEC Recent Labs 01/29/25 0606 01/29/25 1710 01/30/25 1130 01/30/25 1539 NA 141 141 141 141 K 2.8* 3.4* 3.6 3.6 CL 109* 106 106 106 CO2 22* 24 21* 21* BUN 36* 36* 32* 32* CREATININE 1.84* 2.08* 1.78* 1.95* Recent Labs 01/29/25 0606 01/29/25 1710 01/30/25 1539 WBC 4.8 5.3 5.0 HGB 13.7 15.1 14.9 HCT 42.1 46.3 45.8 MCV 87.5 87.9 88.8 PLT 206 199 205 No results for input(s): BNP in the last 72 hours. No results for input(s): TRIG, HDL, LDLCALC, CHOL in the last 72 hours. No results found for: LDLCHOLESTER No results found for: TSH No results found for: EFBP, PLVEF, LVEFPHYS, LVEF2D, EF 03/20/22 (Final) Narrative Ordered by an unspecified provider. Other reports reviewed: Cardiac Tests: ECG: Tracing reviewed. Telemetry findings reviewed: paced No results found for: EFBP, PLVEF, LVEFPHYS, LVEF2D, EF Dena Curtis, [employer] ENGINEER - [employer] Date Of Service 01/31/2025 [1] cholecalciferol, 25 mcg, Oral, Ngoc (more content not included)...[facility] [id number] NoteAttending Supervising Physician's Attestation Statement for Progress Note I have discussed the care of Megan Nascimento with the medical student and/or resident. I have personally taken a history, examined the patient, and performed the associated medical decision making activities. I have reviewed & verified the attested documentation. Unless otherwise noted below, this documentation reflects the history, physical exam, and medical decision making that I performed myself. Please see below for my personal highlights or additions to the note in BOLD. Hospitalist Progress Note 01/31/2025 Subjective: Admit Date: 01/28/2025 PCP: Gibson Roth (Inactive) Room#: [id number] B BRIEF HOSPITAL COURSE: 84-year-old male presented worsening lower extremity edema over the last 3 weeks, scrotal edema in the last few days. Failed outpatient trial of increased oral diuretics. Admitted for CHF exacerbation. Seen by cardiology in the ED, received IV diuresis. Of note patient has had issues with urinary retention lately. Past medical history of HFrEF EF 41% 2021, AICD, CKD 3, history of DVT/PE, hypertension, hyperlipidemia, diabetes, hypothyroidism, non-Hodgkin's lymphoma, bladder cancer. Interval History: Overnight events - none Nursing concerns - none Subjectively, no physical complaints. Questions about general course of therapy answered. Objectively, Vitals stable, on room air K 2.8 - 3.4 - 3.6 BUN - 36-36 - 32 Cr 1.84 - 2.08 - 1.78 - 1.95 Ical 4.30 Mag 1.7 - 2.0 Phos - 2.4 CBC stable Urine 1.3 L last 2h Stool 1x Adult diet Regular; Low Sodium (2 gm); 5 carb choices (75 gm/meal) 24HR INTAKE/OUTPUT: Intake/Output Summary (Last 24 hours) at 01/31/2025 0656 Last data filed at 01/31/2025 0535 Gross per 24 hour Intake 1240 ml Output 1350 ml Net -110 ml Past Medical History: Medical History[1] LABS: CBC: Recent Labs 01/29/25 0606 01/29/25 1710 01/30/25 1539 WBC 4.8 5.3 5.0 RBC 4.81 5.27 5.16 HGB 13.7 15.1 14.9 HCT 42.1 46.3 45.8 MCV 87.5 87.9 88.8 RDW 19.0* 19.6* 19.5* PLT 206 199 205 BMP: Recent Labs 01/29/25 1710 01/30/25 1130 01/30/25 1539 NA 141 141 141 K 3.4* 3.6 3.6 CL 106 106 106 CO2 24 21* 21* BUN 36* 32* 32* CREATININE 2.08* 1.78* 1.95* GLUCOSE 107 128* 144* CALCIUM 9.6 9.4 9.1 ANIONGAP 11 14* 14* Objective: Vitals: BP 134/80 Pulse 84 Temp 36.1 ?C (97 ?F) (Temporal) Resp 20 Ht 5' 7 (1.702 m) Wt 188 lb (85.3 kg) SpO2 95% BMI 29.44 kg/m? Pulse Ox: SpO2 Av.6 % Min: 95 % Max: 98 % Supplemental O2: Physical Exam Vitals reviewed. Constitutional: General: He is not in acute distress. Appearance: Normal appearance. He is not toxic-appearing. Eyes: Extraocular Movements: Extraocular movements intact. Cardiovascular: Rate and Rhythm: Normal rate and regular rhythm. Heart sounds: No murmur heard. No gallop. Pulmonary: Effort: Pulmonary effort is normal. No respiratory distress. Breath sounds: Normal breath sounds. No wheezing or rales. Comments: Mild crackles mid and lower lung liu, sounds more open than yesterday Abdominal: Palpations: Abdomen is soft. Tenderness: There is no abdominal tenderness. There is no guarding. Musculoskeletal: Right lower leg: Edema present. Left lower leg: Edema present. Comments: Piting edema upto the thighs Skin: General: Skin is warm and dry. Neurological: Mental Status: He is alert and oriented to person, place, and time. Psychiatric: Mood and Affect: Mood normal. Behavior: Behavior normal. Thought Content: Thought content normal. Judgment: Judgment normal. Medications: Scheduled PRN Scheduled Meds[2] PRN Meds[3] Continuous Continuous Meds[4] Assessment Data: (CAT1) Reviewed 3 or more notes from different specialty or health system (each=1). (LOW: 2x CAT1 or independent historian MOD: 3x CAT1 or 1x CAT3 EXTENSIVE: 3x CAT1 and 1x CAT3) Acute, acute on chronic, unstable/uncontrolled chronic problems/diagnoses: Acute exacerbation of HFrEF Metoprolol 100 twice daily Entresto low-dose twice daily IV lasix 80 BID per cards Stable chronic problems affecting care, new non-acute diagnoses: CKD 3, history of DVT/PE, not on anticoagulation hypertension, hyperlipidemia, Diabetes Gabapentin 100 twice daily Glipizide 2.5 oral daily before breakfast Low-dose sliding scale Hypothyroidism -Synthroid 25 mcg daily non-Hodgkin's lymphoma, bladder cancer GERD-on sucralfate 1 g twice daily, Protonix 40 daily BPH-tamsulosin 0.4 mg oral Anxiety/depression-Zoloft 25 daily Plan As a result of the above findings & factors, the following mgmt was pursued: Acute exacerbation of HFrEF HF following Current diuresis IV furosemide 80 mg twice daily, continue BID labs Rest meds as above Previously taken off Spirolactone due to renal dysfun (more content not included)...[facility]07-14-2025 Plan of care note* Care Plan - Charisma Kaminski RN - 01/31/2025 4:19 AM EDT Problem: Knowledge Deficit Goal: Patient/family/caregiver demonstrates understanding of disease process, treatment plan, medications, and discharge instructions Outcome: Progressing Problem: Hemodynamic Status Goal: Patient's vitals signs are stable Outcome: Progressing Problem: Excessive Fluid Volume Goal: Fluid and electrolyte balance are achieved/maintained Outcome: Progressing Problem: Inadequate Gas Exchange Goal: Patient is adequately oxygenated and ventilation is improved Outcome: Progressing Goal: Nutritional status is improving Outcome: Progressing Problem: Activity Intolerance/Impaired Mobility Goal: Mobility/activity is maintained at optimum level for patient Outcome: Progressing Problem: Nutrition Goal: Nutritional status is improving Outcome: Progressing Problem: Pain - Adult Goal: Verbalizes/displays adequate comfort level or baseline comfort level Outcome: Progressing Problem: Safety - Adult Goal: Free from fall injury Outcome: Progressing Problem: Problem Interventions Goal: Promote nutritional intake Outcome: Progressing T [id number] Plan of care note* Care Plan - Dania Ledesma RN - 01/30/2025 10:59 AM EDT Problem: Hemodynamic Status Goal: Patient's vitals signs are stable Flowsheets (Taken 01/30/2025 1059) Patient's vital signs are stable: Assess and monitor patient's heart rate, rhythm, respiratory rate, peripheral pulses, capillary refill, color, body temperature, intake and output, labs and physical activity tolerance Observe for signs of chest pain (note location, duration, severity, radiation and associated symptoms such as diaphoresis, nausea, indigestion) Monitor for signs and symptoms of heart failure (e.g. shortness of breath, edema of feet/ankles/legs, rapid irregular heart rate, coughing, wheezing, white/pink blood tinged sputum, sudden weight gain, chest pain) Collaborate with interdisciplinary team and initiate plan and interventions as ordered Position patient for maximum circulation/cardiac output Monitor fluid intake Problem: Safety - Adult Goal: Free from fall injury Outcome: Progressing Note: Side rails upx2, bed low, brakes on, call light in reach. [facility] [id number] [place] [facility] Cardiology /Electrophysiology Progress Note HPI / Interval History: Pt is a 84 year old male with a PMH significant for chronic HFrEF, NICM, 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 NT Pro BNP 23,300, troponin negative, CXR with pulmonary vascular congestion, bilateral pleural effusions, EKG paced. Cardiology consulted and Pt found to be massively hypervolemic, started on IV diuresis. Last echocardiogram in 2021 with LVEF=41%, normal RV systolic function. Today he reports he had a lot of UOP yesterday. He has ongoing leg swelling but states this is improved from previous. He denies chest pain, light-headedness, dizziness, syncope. Assessment/Plan HF NYHA Class [] I [] II [] III [] IV []Unable to assess [] N/A #Acute on chronic HFrEF, NICM, stage C. NYHA - unable to assess as Pt not OOB -VSS. He is warm and massively hypervolemic on exam, + JVD, he is currently on furosemide 80 mg IV BID with good response, -3.4 L UOP yesterday, continue for now -He is on low dose Entresto, Toprol-XL 100 mg daily-> continue -Repeat labs remain pending, this should be completed today, closely monitor K+/Mg on IV diuretic and replace electrolytes as needed -No MRA/SGL2i 2/2 CKD IV -Update echocardiogram given Pt presenting with ADHF -Strict I&Os, daily standing weights, 1.8 g Na diet, and 64 oz fluid restriction #HTN -BP at goal on low dose Entresto, pending renal function/ electrolytes consider increase in dose tomorrow #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 Medications: Scheduled Meds[1] Infusion Medications: Continuous Meds[2] Physical Examination: Vitals: 01/30/25 0143 01/30/25 0612 01/30/25 1000 01/30/25 1038 BP: 129/66 144/73 120/68 BP Location: Right arm Right arm Patient Position: Lying Pulse: 79 77 69 Resp: 16 18 Temp: (!) 35.8 ?C (96.5 ?F) (!) 35.7 ?C (96.2 ?F) 36.2 ?C (97.2 ?F) TempSrc: Temporal Temporal Temporal SpO2: 98% 98% 95% Weight: 189 lb 3.2 oz (85.8 kg) Height: 5' 7 (1.702 m) Intake/Output Summary (Last 24 hours) at 01/30/2025 1059 Last data filed at 01/30/2025 0900 Gross per 24 hour Intake 240 ml Output 2850 ml Net -2610 ml Patient Vitals for the past 168 hrs: Weight Weight Method 01/30/25 0143 189 lb 3.2 oz (85.8 kg) Standing scale 01/29/25 0300 192 lb 8 oz (87.3 kg) Bed scale 01/28/25 1719 193 lb 9.6 oz (87.8 kg) Standing scale 01/28/25 0157 195 lb 8 oz (88.7 kg) Bed scale Physical Exam Vitals reviewed. Constitutional: General: He is not in acute distress. Appearance: He is not ill-appearing. Neck: Vascular: JVD present. Comments: + JVD Cardiovascular: Rate and Rhythm: Normal rate and regular rhythm. Pulmonary: Breath sounds: Rales (bilateral lower lobes) present. No wheezing or rhonchi. Musculoskeletal: Right lower leg: Edema (2+ edema) present. Left lower leg: Edema (2+ edema) present. Skin: General: Skin is warm. Neurological: Mental Status: He is alert. Mental status is at baseline. Psychiatric: Mood and Affect: Mood normal. Laboratory Tests: TROPONIN I, CONVENTIONAL SENSITIVITY TROPONIN I Date Value Ref Range Status 05/14/2021 0.029 0.000 - 0.034 ng/mL Final Comment: . 05/14/2021 0.029 0.000 - 0.034 ng/mL Final Comment: . 05/13/2021 0.033 0.000 - 0.034 ng/mL Final Comment: . 05/13/2021 0.035 (H) 0.000 - 0.034 ng/mL Final Comment: . 01/31/2021 0.027 0.000 - 0.034 ng/mL Final Comment: . TROPONIN I, HIGH SENSITIVITY Troponin HS Serial Baseline Date Value Ref Range Status 01/28/2025 32 <=35 ng/L Final Comment: In individuals presenting with symptoms > 2h, a baseline troponin <= 5 ng/L suggests acute cardiac injury is unlikely and further serial testing is generally not indicated. No results found for: TROPHS2 No results found for: TROPDELTBASE No results found for: TROPHS3 No results found for: TROPDELTSEC Recent Labs 01/28/258 01/29/2560501/29/25 1710 NA 141 141 141 K 4.2 2.8* 3.4* CL 106 109* 106 CO2 21* 22* 24 BUN 40* 36* 36* CREATININE 2.37* 1.84* 2.08* Recent Labs 01/28/25 0238 01/29/25 0601/29/25 1710 WBC 5.9 4.8 5.3 HGB 15.2 13.7 15.1 HCT 46.0 42.1 46.3 MCV 87.3 87.5 87.9 PLT 230 206 199 Recent Labs 01/28/25237 BNP 23,300* No results for input(s): TRIG, HDL, LDLCALC, CHOL in the last 72 hours. No results found for: LDLCHOLESTER No results found for: TSH No results found for: EFBP, PLVEF, LVEFPHYS, LVEF2D, EF 03/20/22 (Final) Narrative Ordered by an unspecified provider. Other reports reviewed: Cardiac Tests: Telemetry findings reviewed: Paced No results found for: EFBP, PLVEF, LVEFPHYS, LVEF2D, EF Jabari Osman PA-C Date Of Service 01/30/2025 [1 (more content not included)...[facility] [id number] NoteAttending Supervising Physician's Attestation Statement for Progress Note I have discussed the care of Megan Kalen Nascimento with the medical student and/or resident. I have personally taken a history, examined the patient, and performed the associated medical decision making activities. I have reviewed & verified the attested documentation. Unless otherwise noted below, this documentation reflects the history, physical exam, and medical decision making that I performed myself. Please see below for my personal highlights or additions to the note in BOLD. Hospitalist Progress Note 01/30/2025 Subjective: Admit Date: 01/28/2025 PCP: Gibson Roth (Inactive) Room#: [id number]/[id number] B BRIEF HOSPITAL COURSE: 84-year-old male presented worsening lower extremity edema over the last 3 weeks, scrotal edema in the last few days. Failed outpatient trial of increased oral diuretics. Admitted for CHF exacerbation. Seen by cardiology in the ED, received IV diuresis. Of note patient has had issues with urinary retention lately. Past medical history of HFrEF EF 41% 2021, AICD, CKD 3, history of DVT/PE, hypertension, hyperlipidemia, diabetes, hypothyroidism, non-Hodgkin's lymphoma, bladder cancer. Interval History: Overnight events Nursing concerns Subjectively, no questions or concerns. In general feels better. Objectively, Vitals stable, on room air, no acute distress. Piting edema upto thigh. K 2.8 - 3.4 (rep) BUN - 36-36 Cr 1.84 - 2.08 Ical 4.30 Mag 1.7 rep Phos - 2.4 Bili 1.? CBC stable Urine 2. L last 24h Adult diet Regular; 5 carb choices (75 gm/meal); Low Fat/Low Chol/High Fiber/2 gm Na 24HR INTAKE/OUTPUT: Intake/Output Summary (Last 24 hours) at 01/30/2025 0714 Last data filed at 01/30/2025 0612 Gross per 24 hour Intake 660 ml Output 3450 ml Net -2790 ml Past Medical History: Medical History[1] LABS: CBC: Recent Labs 01/28/25 0238 01/29/25 0606 01/29/25 1710 WBC 5.9 4.8 5.3 RBC 5.27 4.81 5.27 HGB 15.2 13.7 15.1 HCT 46.0 42.1 46.3 MCV 87.3 87.5 87.9 RDW 19.5* 19.0* 19.6* PLT 230 206 199 BMP: Recent Labs 01/28/25 0238 01/29/25 0606 01/29/25 1710 NA 141 141 141 K 4.2 2.8* 3.4* CL 106 109* 106 CO2 21* 22* 24 BUN 40* 36* 36* CREATININE 2.37* 1.84* 2.08* GLUCOSE 79* 74* 107 CALCIUM 8.7* 8.6* 9.6 ANIONGAP 14* 10 11 Objective: Vitals: BP 144/73 (BP Location: Right arm) Pulse 77 Temp (!) 35.7 ?C (96.2 ?F) (Temporal) Resp 16 Ht 5' 7 (1.702 m) Wt 189 lb 3.2 oz (85.8 kg) SpO2 98% BMI 29.63 kg/m? Pulse Ox: SpO2 Av.5 % Min: 94 % Max: 98 % Supplemental O2: Physical Exam Vitals reviewed. Constitutional: General: He is not in acute distress. Appearance: Normal appearance. He is not toxic-appearing. Eyes: Extraocular Movements: Extraocular movements intact. Cardiovascular: Rate and Rhythm: Normal rate and regular rhythm. Heart sounds: No murmur heard. No gallop. Pulmonary: Effort: Pulmonary effort is normal. No respiratory distress. Breath sounds: Normal breath sounds. No wheezing or rales. Comments: Crackles throughout all lung liu No wheezes Abdominal: Palpations: Abdomen is soft. Tenderness: There is no abdominal tenderness. There is no guarding. Musculoskeletal: Right lower leg: Edema present. Left lower leg: Edema present. Comments: Piting edema upto the thighs Skin: General: Skin is warm and dry. Neurological: Mental Status: He is alert and oriented to person, place, and time. Psychiatric: Mood and Affect: Mood normal. Behavior: Behavior normal. Thought Content: Thought content normal. Judgment: Judgment normal. Medications: Scheduled PRN Scheduled Meds[2] PRN Meds[3] Continuous Continuous Meds[4] Assessment Data: (CAT1) Reviewed 3 or more notes from different specialty or health system (each=1). (LOW: 2x CAT1 or independent historian MOD: 3x CAT1 or 1x CAT3 EXTENSIVE: 3x CAT1 and 1x CAT3) Acute, acute on chronic, unstable/uncontrolled chronic problems/diagnoses: Acute exacerbation of HFrEF Metoprolol 100 twice daily Entresto low-dose twice daily IV lasix 80 BID per cards Stable chronic problems affecting care, new non-acute diagnoses: CKD 3, history of DVT/PE, not on anticoagulation hypertension, hyperlipidemia, Diabetes Gabapentin 100 twice daily Glipizide 2.5 oral daily before breakfast Low-dose sliding scale Hypothyroidism -Synthroid 25 mcg daily non-Hodgkin's lymphoma, bladder cancer GERD-on sucralfate 1 g twice daily, Protonix 40 daily BPH-tamsulosin 0.4 mg oral Anxiety/depression-Zoloft 25 daily Plan As a result of the above findings & factors, the following mgmt was pursued: Acute exacerbation of HFrEF HF following Current diuresis IV furosemide 80 mg twice daily, continue BID labs Rest meds as above Previously taken off Spirolactone d (more content not included)...[facility]07-12-2025 Plan of care note* Care Plan - Jesse Foster RN - 01/29/2025 10:38 AM EDT Problem: Knowledge Deficit Goal: Patient/family/caregiver demonstrates understanding of disease process, treatment plan, medications, and discharge instructions Outcome: Progressing Problem: Hemodynamic Status Goal: Patient's vitals signs are stable Outcome: Progressing Problem: Excessive Fluid Volume Goal: Fluid and electrolyte balance are achieved/maintained Outcome: Progressing Problem: Inadequate Gas Exchange Goal: Patient is adequately oxygenated and ventilation is improved Outcome: Progressing Goal: Nutritional status is improving Outcome: Progressing Problem: Activity Intolerance/Impaired Mobility Goal: Mobility/activity is maintained at optimum level for patient Outcome: Progressing Problem: Nutrition Goal: Nutritional status is improving Outcome: Progressing Problem: Pain - Adult Goal: Verbalizes/displays adequate comfort level or baseline comfort level Outcome: Progressing Problem: Safety - Adult Goal: Free from fall injury Outcome: Progressing [facility] [id number] Consult note* Triston Garduno MD - 01/29/2025 8:15 AM EDTAssociated Order(s): IP CONSULT TO CARDIOLOGY [facility] Cardiology /Electrophysiology Consult Note Reason for Consult/Chief Complaint: Dyspnea Referring provider: Dr. Hall Established inside technical sales representative: Dr. Roth History of Present Illness: Megan Nascimento is a 84 y.o. 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 He endorses exe rtional dyspnea and orthopnea as well. When his symptoms initially started, he was seen at Dr. Roth's office where his home torsemide dose was increased from 20 mg twice daily to 60 mg, as it was presumed that he had gained about 20 pounds in this time period. However his symptoms did not significantly improve and he decided to seek medical attention. BNP on admission was 23,000. Initially presented at [facility] but transferred here for further management. This morning, he is doing well, denies any ongoing symptoms except orthopnea and pedal edema. Continues to be hypervolemic on exam. Denies any ongoing chest pain, nausea, vomiting, palpitations, presyncope or syncope symptoms. I's and O's reveal a net negative of -350 mL since admission. Labs, vitals and telemetry reviewed. 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 He was taken off MRA due to worsening renal dysfunction and hyperkalemia. - Home dose torsemide 20 mg twice daily GABI on CKD stage IV - Baseline thought to be around 2.3, however his renal function improved with diuresis. Creatinine at 1.8 this a.m. Hypokalemia - Replete as needed Heart failure team will continue to follow Medications: Scheduled Meds[1] Infusion Medications: Continuous Meds[2] Physical Examination: Vitals: 01/29/25 0054 01/29/25 0300 01/29/25 0447 01/29/25 0808 BP: 115/59 123/67 128/71 BP Location: Right arm Right arm Right arm Patient Position: Lying Lying Lying Pulse: 71 67 76 Resp: 14 14 18 Temp: 36.1 C (97 F) 36 C (96.8 F) (!) 35.9 C (96.7 F) TempSrc: Temporal Temporal Temporal SpO2: 96% 95% 96% Weight: 192 lb 8 oz (87.3 kg) Height: Intake/Output Summary (Last 24 hours) at 01/29/2025 0816 Last data filed at 01/29/2025 0808 Gross per 24 hour Intake 1260 ml Output 950 ml Net 310 ml Wt Readings from Last 3 Encounters: 01/29/25 192 lb 8 oz (87.3 kg) 01/26/25 194 lb 9.6 oz (88.3 kg) 09/22/24 180 lb (81.6 kg) Physical Exam Constitutional: Appearance: Normal appearance. Cardiovascular: Rate and Rhythm: Normal rate and regular rhythm. Pulses: Normal pulses. Heart sounds: Normal heart sounds. Pulmonary: Effort: Pulmonary effort is normal. Breath sounds: Normal breath sounds. Neurological: Mental Status: He is alert and oriented to person, place, and time. Laboratory Tests: TROPONIN I, CONVENTIONAL SENSITIVITY TROPONIN I Date Value Ref Range Status 05/14/2021 0.029 0.000 - 0.034 ng/mL Final Comment: . 05/14/2021 0.029 0.000 - 0.034 ng/mL Final Comment: . 05/13/2021 0.033 0.000 - 0.034 ng/mL Final Comment: . 05/13/2021 0.035 (H) 0.000 - 0.034 ng/mL Final Comment: . 01/31/2021 0.027 0.000 - 0.034 ng/mL Final Comment: . TROPONIN I, HIGH SENSITIVITY Troponin HS Serial Baseline Date Value Ref Range Status 01/28/2025 32 <=35 ng/L Final Comment: In individuals presenting with symptoms > 2h, a baseline troponin <= 5 ng/L suggests acute cardiac injury is unlikely and further serial testing is generally not indicated. No results found for: TROPHS2 No results found for: TROPDELTBASE No results found for: TROPHS3 No results found for: TROPDELTSEC Recent Labs 01/28/2523701/29/25605 NA 141 141 K 4.2 2.8* CL 106 109* CO2 21* 22* BUN 40* 36* CREATININE 2.37* 1.84* EGFR 26.2* 35.5* Recent Labs 01/28/2523701/29/25605 WBC 5.9 4.8 HGB 15.2 13.7 HCT 46.0 42.1 MCV 87.3 87.5 PLT 230 206 No results found for: HGBA1C No results found for: TSH Lab Results Component Value Date CHOL 166 05/14/2021 Lab Results Component Value Date HDL 34 (L) 05/14/2021 No results found for: LDLCALC Lab Results Component Value Date TRIG 109 05/14/2021 No results found for: CHOLHDL No results found for: LDLCHOLESTER Recent Labs 01/28/25237 BNP 23,300* No results for input(s): INR in the last 72 hours. Lab Results Component Value Date FERRITIN 27 07/25/2020 Radiology: CXR: personally reviewed: Cardiac Tests Personally Reviewed: Last EKG 01/28/25 ECG 12-LEAD 01/28/2025 5:24 PM (Final) Impression Ventricular-paced rhythm No further analysis attempted due to paced rhythm Electronically Signed On 01-28-2025 17:24:48 EDT by Eduardo Feliciano Signed by: Eduardo Feliciano MD on 01/28/2025 5:24 PM Telemetry findings: V paced rhythm Reports reviewed: Last Echo 03/20/22 (Final) Narrative Ordered by an unspecified provider. Last Cath No results found for this or any previous visit. Last Stress Test No results found for this or any previous visit. Last EP study No results found for this or any previous visit. No results found for: EFBP, PLVEF, LVEFPHYS, LVEF2D, EF Triston Garduno MD DATE of SERVICE: 01/29/2025 [1] cholecalciferol, 25 mcg, Oral, Daily cyanocobalamin, 1,000 mcg, Oral, Daily ferrous sulfate, 325 mg, Oral, Daily with breakfast furosemide, 80 mg, IntraVENous, BID gabapentin, 100 mg, Oral, BID glipiZIDE, 2.5 mg, Oral, qAM AC insulin lispro, 0-12 Units, SubCUTAneous, TID WC And insulin lispro, 0-12 Units, SubCUTAneous, Nightly levothyroxine, 25 mcg, Oral, Daily metoprolol succinate XL, 100 mg, Oral, Daily pantoprazole, 40 mg, Oral, qAM AC potassium chloride CR, 20 mEq, Oral, Once potassium chloride CR, 40 mEq, Oral, Once sacubitril-valsartan, 1 tablet, Oral, BID sertraline, 25 mg, Oral, Daily sucralfate, 1 g, Oral, BID AC tamsulosin, 0.4 mg, Oral, Daily therapeutic multivitamin-minerals, 1 tablet, Oral, Daily [Held by provider] torsemide, 20 mg, Oral, BID [2] Cosigned by Donovan Hoffman MD at 01/29/2025 1:12 PM EDT Associated attestation - Donovan Hoffman MD - 01/29/2025 1:12 PM EDT I, Dr. Donovan Hoffman, saw and evaluated the patient in 5-1/W5 B. I personally obtained the velazquez and critical portions of the history and physical exam. I reviewed the chart, the fellow's documentation, and discussed the patient with the fellow. I agree with the fellow's medical decision making and have edited the note to reflect my clinical findings and my assessment and plan. In summary, Mr. Nascimento is an 84-year-old man with a history of CKD stage IV, history of PE, heart failure with reduced ejection fraction, hypertension who who presented to [facility] with a chief complaint of shortness of breath and volume overload. He was seen by Dr. Lund yesterday and transferred here to [facility] due to lack of beds. IV diuresis was started. Last transthoracic echocardiogram was from 2021 and showed left ventricular ejection fraction 40%. Urine output is not being collected completely, and creatinine is improved from 2.3-1.8. On exam he remains massively volume overloaded. His current medications include Entresto low-dose twice daily, metoprolol succinate 100 mg/day, andhe is receiving furosemide 80 mg IV twice daily. Today we will continue IV diuresis and we will continue to monitor. Donovan Hoffman MD, PhD Advanced Heart Failure Cardiology [facility]. [facility] [place] 1:12 PM 01/29/25 [facility] [employer] Work Phone: [phone] 360-575007-12-2025 Consult note* Triston Garduno MD - 01/29/2025 8:15 AM EDTAssociated Order(s): IP CONSULT TO CARDIOLOGY [facility] Cardiology /Electrophysiology Consult Note Reason for Consult/Chief Complaint: Dyspnea Referring provider: Dr. Hall Established inside technical sales representative: Dr. Roth History of Present Illness: Megan Nascimento is a 84 y.o. 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 He endorses exe rtional dyspnea and orthopnea as well. When his symptoms initially started, he was seen at Dr. Roth's office where his home torsemide dose was increased from 20 mg twice daily to 60 mg, as it was presumed that he had gained about 20 pounds in this time period. However his symptoms did not significantly improve and he decided to seek medical attention. BNP on admission was 23,000. Initially presented at [facility] but transferred here for further management. This morning, he is doing well, denies any ongoing symptoms except orthopnea and pedal edema. Continues to be hypervolemic on exam. Denies any ongoing chest pain, nausea, vomiting, palpitations, presyncope or syncope symptoms. I's and O's reveal a net negative of -350 mL since admission. Labs, vitals and telemetry reviewed. 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 He was taken off MRA due to worsening renal dysfunction and hyperkalemia. - Home dose torsemide 20 mg twice daily GABI on CKD stage IV - Baseline thought to be around 2.3, however his renal function improved with diuresis. Creatinine at 1.8 this a.m. Hypokalemia - Replete as needed Heart failure team will continue to follow Medications: Scheduled Meds[1] Infusion Medications: Continuous Meds[2] Physical Examination: Vitals: 01/29/25 0054 01/29/25 0300 01/29/25 0447 01/29/25 0808 BP: 115/59 123/67 128/71 BP Location: Right arm Right arm Right arm Patient Position: Lying Lying Lying Pulse: 71 67 76 Resp: 14 14 18 Temp: 36.1 C (97 F) 36 C (96.8 F) (!) 35.9 C (96.7 F) TempSrc: Temporal Temporal Temporal SpO2: 96% 95% 96% Weight: 192 lb 8 oz (87.3 kg) Height: Intake/Output Summary (Last 24 hours) at 01/29/2025 0816 Last data filed at 01/29/2025 0808 Gross per 24 hour Intake 1260 ml Output 950 ml Net 310 ml Wt Readings from Last 3 Encounters: 01/29/25 192 lb 8 oz (87.3 kg) 01/26/25 194 lb 9.6 oz (88.3 kg) 09/22/24 180 lb (81.6 kg) Physical Exam Constitutional: Appearance: Normal appearance. Cardiovascular: Rate and Rhythm: Normal rate and regular rhythm. Pulses: Normal pulses. Heart sounds: Normal heart sounds. Pulmonary: Effort: Pulmonary effort is normal. Breath sounds: Normal breath sounds. Neurological: Mental Status: He is alert and oriented to person, place, and time. Laboratory Tests: TROPONIN I, CONVENTIONAL SENSITIVITY TROPONIN I Date Value Ref Range Status 05/14/2021 0.029 0.000 - 0.034 ng/mL Final Comment: . 05/14/2021 0.029 0.000 - 0.034 ng/mL Final Comment: . 05/13/2021 0.033 0.000 - 0.034 ng/mL Final Comment: . 05/13/2021 0.035 (H) 0.000 - 0.034 ng/mL Final Comment: . 01/31/2021 0.027 0.000 - 0.034 ng/mL Final Comment: . TROPONIN I, HIGH SENSITIVITY Troponin HS Serial Baseline Date Value Ref Range Status 01/28/2025 32 <=35 ng/L Final Comment: In individuals presenting with symptoms > 2h, a baseline troponin <= 5 ng/L suggests acute cardiac injury is unlikely and further serial testing is generally not indicated. No results found for: TROPHS2 No results found for: TROPDELTBASE No results found for: TROPHS3 No results found for: TROPDELTSEC Recent Labs 01/28/25 0238 01/29/25 0606 NA 141 141 K 4.2 2.8* CL 106 109* CO2 21* 22* BUN 40* 36* CREATININE 2.37* 1.84* EGFR 26.2* 35.5* Recent Labs 01/28/25 0238 01/29/25 0606 WBC 5.9 4.8 HGB 15.2 13.7 HCT 46.0 42.1 MCV 87.3 87.5 PLT 230 206 No results found for: HGBA1C No results found for: TSH Lab Results Component Value Date CHOL 166 05/14/2021 Lab Results Component Value Date HDL 34 (L) 05/14/2021 No results found for: LDLCALC Lab Results Component Value Date TRIG 109 05/14/2021 No results found for: CHOLHDL No results found for: LDLCHOLESTER Recent Labs 01/28/25 0238 BNP 23,300* No results for input(s): INR in the last 72 hours. Lab Results Component Value Date FERRITIN 27 07/25/2020 Radiology: CXR: personally reviewed: Cardiac Tests Personally Reviewed: Last EKG 01/28/25 ECG 12-LEAD 01/28/2025 5:24 PM (Final) Impression Ventricular-paced rhythm No further analysis attempted due to paced rhythm Electronically Signed On 01-28-2025 17:24:48 EDT by Eduardo Feliciano Signed by: Eduardo Feliciano MD on 01/28/2025 5:24 PM Telemetry findings: V paced rhythm Reports reviewed: Last Echo 03/20/22 (Final) Narrative Ordered by an unspecified provider. Last Cath No results found for this or any previous visit. Last Stress Test No results found for this or any previous visit. Last EP study No results found for this or any previous visit. No results found for: EFBP, PLVEF, LVEFPHYS, LVEF2D, EF Triston Garduno MD DATE of SERVICE: 01/29/2025 [1] cholecalciferol, 25 mcg, Oral, Daily cyanocobalamin, 1,000 mcg, Oral, Daily ferrous sulfate, 325 mg, Oral, Daily with breakfast furosemide, 80 mg, IntraVENous, BID gabapentin, 100 mg, Oral, BID glipiZIDE, 2.5 mg, Oral, qAM AC insulin lispro, 0-12 Units, SubCUTAneous, TID WC And insulin lispro, 0-12 Units, SubCUTAneous, Nightly levothyroxine, 25 mcg, Oral, Daily metoprolol succinate XL, 100 mg, Oral, Daily pantoprazole, 40 mg, Oral, qAM AC potassium chloride CR, 20 mEq, Oral, Once potassium chloride CR, 40 mEq, Oral, Once sacubitril-valsartan, 1 tablet, Oral, BID sertraline, 25 mg, Oral, Daily sucralfate, 1 g, Oral, BID AC tamsulosin, 0.4 mg, Oral, Daily therapeutic multivitamin-minerals, 1 tablet, Oral, Daily [Held by provider] torsemide, 20 mg, Oral, BID [2] Cosigned by Donovan Hoffman MD at 01/29/2025 1:12 PM EDT Associated attestation - Donovan Hoffman MD - 01/29/2025 1:12 PM EDT I, Dr. Donovan Hoffman, saw and evaluated the patient in / B. I personally obtained the velazquez and critical portions of the history and physical exam. I reviewed the chart, the fellow's documentation, and discussed the patient with the fellow. I agree with the fellow's medical decision making and have edited the note to reflect my clinical findings and my assessment and plan. In summary, Mr. Nascimento is an 84-year-old man with a history of CKD stage IV, history of PE, heart failure with reduced ejection fraction, hypertension who who presented to [facility] with a chief complaint of shortness of breath and volume overload. He was seen by Dr. Lund yesterday and transferred here to [facility] due to lack of beds. IV diuresis was started. Last transthoracic echocardiogram was from 2021 and showed left ventricular ejection fraction 40%. Urine output is not being collected completely, and creatinine is improved from 2.3-1.8. On exam he remains massively volume overloaded. His current medications include Entresto low-dose twice daily, metoprolol succinate 100 mg/day, andhe is receiving furosemide 80 mg IV twice daily. Today we will continue IV diuresis and we will continue to monitor. Donovan Hoffman MD, PhD Advanced Heart Failure Cardiology [facility]. [facility] [place] 1:12 PM 01/29/25 * Wm Lund MD - 01/28/2025 9:09 AM EDTAssociated Order(s): IP CONSULT TO CARDIOLOGY CARDIOLOGY CONSULTATION Assessment/Plan: Cardiovascular Diagnoses # Acute on chronic heart failure with reduced ejection fraction: Nonischemic cardiomyopathy. BNP 23.3k. Dry weight in chart review is roughly 180lbs, presenting at 195lbs, target for diuresis is thus15 lbs. S/p 40mg IV furosemide at 0257. Cath 2018 with no significant disease, thus felt NICM. LastEF 41% from 2021. He is warm and mentating well. # Stage 4 CKD: Renal function is at baseline # History of PE: Not chronically maintained on OAC Recommendations: - IV furosemide 80mg BID - Strict I/O and BID BMP while IV diuresing - Dry weight target is 180lbs - Patient will be transferring to [facility], will put on the follow-up HF list - Continue home mteoprolol, entresto - Previously taken of spironolactone due to renal dysfunction and potassium abnormalities History of Present Illness: Megan Nascimento is an 84 year old man presenting to the hospital with fluid overload. Mr. Nascimento reports exertional dyspnea, and progressive swelling over the past several weeks. This has been going for some time he reports, and he did try to ignore it for awhile but this kept building up. This progressed to the point that he was having more orthopnea, significant bilateral lower extremity swelling. He called Dr. Lane office and was seen for an urgent visit earlier this week and did increase oral diuretic for a few days, this did not get in front of the problem. CV History: Patient of Dr. Ralph Roth, with cardiovascular history of NICM with EF 20%, increased to 41% following CRTD. He had an urgent visit with Dr. Roth on 01/26 and torsemide increasd from20 to 60mg daily given his symptoms of acute on chronic heart failure--presumed 15-20lbs of volume overloaded. CV Meds (ambulatory): Metoprolol succinate 100mg BID, rosuvastatin 20mg, entresto 24-26mg, trosemide 20mg BID (recently increased to 60) Tests Reviewed: Chest X-Ray: From 01/28 shows vascular congestion, pulmonary edema EKG: Reviewed from 01/28/2025, a-sensed v-paced Telemetry: Sinus rhythm Echo: 02/2022 1. Left ventricle: Systolic function is moderately decreased by the biplane method of disks. The estimated ejection fraction is 41%. However visually it seems to be lower more in the range of 30-35%. Features are consistent with a pseudonormal left ventricular filling pattern, with concomitant abnormal relaxation and increased filling pressure (grade 2 diastolic dysfunction). 2. Right ventricle: The cavity size is mildly dilated. Pacer wire noted in the right ventricle. Systolic function is normal. Right ventricular systolic pressure is at the upper limits of normal. The RV pressure during systole by Doppler is 34 mm Hg. 3. Aortic valve: There is mild-moderate, 1-2+ regurgitation Cath : 2019, nonobstructive Physical Exam: VS: Vitals: 01/28/25 0145 01/28/25 0147 01/28/25 0157 01/28/25 0642 BP: 123/73 132/70 Pulse: 76 60 Resp: 24 17 Temp: 36.6 C (97.9 F) TempSrc: Temporal SpO2: 99% 99% Weight: 195 lb 8 oz (88.7 kg) Height: 5' 7 (1.702 m) No intake or output data in the 24 hours ending 01/28/25 0910 @[id number]@ Gen: Comfortable, pleasant, on room air Neck: JVP up to angle of mandible CV: Regular, soft systolic murmur Pulm: Bilateral crackles Abd: Soft/NT Neuro: Nonfocal Extrem: Bilateral pitting edema up to above the knees Pertinent Labs: ABGs: No results found for: PHART, PO2ART, [id number] INR: No results for input(s): INR in the last 72 hours. Cardiac Injury Profile: No results for input(s): CKTOTAL, CKMB, CKMBINDEX, TROPONINI in thelast 72 hours. Lipid Profile:No results found for: TRIG, HDL, LDLCALC, CHOL Hemoglobin A1C: No results found for: HGBA1C Wm Lund MD Cardiology [facility]. [facility] [place] 9:10 AM 01/28/25 documented in this [facility]07-12-2025 NoteAttending Supervising Physician's Attestation Statement for Progress Note I have discussed the care of Megan Nascimento with the medical student and/or resident. I have personally taken a history, examined the patient, and performed the associated medical decision making activities. I have reviewed & verified the attested documentation. Unless otherwise noted below, this documentation reflects the history, physical exam, and medical decision making that I performed myself. Please see below for my personal highlights or additions to the note in BOLD. Hospitalist Progress Note 01/29/2025 Subjective: Admit Date: 01/28/2025 PCP: Gibson Roth (Inactive) Room#: [id number] B BRIEF HOSPITAL COURSE: 84-year-old male presented worsening lower extremity edema over the last 3 weeks, scrotal edema in the last few days. Failed outpatient trial of increased oral diuretics. Admitted for CHF exacerbation. Seen by cardiology in the ED, received IV diuresis. Of note patient has had issues with urinary retention lately. Past medical history of HFrEF EF 41% 2021, AICD, CKD 3, history of DVT/PE, hypertension, hyperlipidemia, diabetes, hypothyroidism, non-Hodgkin's lymphoma, bladder cancer. Interval History: No overnight issues. Case and plan discussed with patient and bedside nurse. All questions answered. Seen and examined bedside. Awake, alert, oriented x4. Daugther bedside. States he had a trip to [place] couple days ago. Denies any cough, congestion, GI, issues. Cannot tell why he thinks he may be accumulating fluid in the last few weeks. Does tell me that he feels much better. Sob is better, has no more orthopnea, weakess, he feels like he has more energy, and his abdominal pain is gone. Agree. Adult diet Regular; 5 carb choices (75 gm/meal); Low Fat/Low Chol/High Fiber/2 gm Na 24HR INTAKE/OUTPUT: Intake/Output Summary (Last 24 hours) at 01/29/2025 0745 Last data filed at 01/29/2025 0054 Gross per 24 hour Intake 600 ml Output 950 ml Net -350 ml Past Medical History: Medical History[1] LABS: CBC: Recent Labs 01/28/25 0238 01/29/25 0606 WBC 5.9 4.8 RBC 5.27 4.81 HGB 15.2 13.7 HCT 46.0 42.1 MCV 87.3 87.5 RDW 19.5* 19.0* PLT 230 206 BMP: Recent Labs 01/28/25 0238 01/29/25 0606 NA 141 141 K 4.2 2.8* CL 106 109* CO2 21* 22* BUN 40* 36* CREATININE 2.37* 1.84* GLUCOSE 79* 74* CALCIUM 8.7* 8.6* ANIONGAP 14* 10 Objective: Vitals: BP 123/67 (BP Location: Right arm, Patient Position: Lying) Pulse 67 Temp 36 ?C (96.8 ?F) (Temporal) Resp 14 Ht 5' 7 (1.702 m) Wt 192 lb 8 oz (87.3 kg) SpO2 95% BMI 30.15 kg/m? Pulse Ox: SpO2 Av.6 % Min: 95 % Max: 99 % Supplemental O2: Physical Exam Vitals reviewed. Constitutional: General: He is not in acute distress. Appearance: Normal appearance. He is not toxic-appearing. Eyes: Extraocular Movements: Extraocular movements intact. Cardiovascular: Rate and Rhythm: Normal rate and regular rhythm. Heart sounds: No murmur heard. No gallop. Pulmonary: Effort: Pulmonary effort is normal. No respiratory distress. Breath sounds: Normal breath sounds. No wheezing or rales. Comments: Crackles throughout all lung liu No wheezes Abdominal: Palpations: Abdomen is soft. Tenderness: There is no abdominal tenderness. There is no guarding. Musculoskeletal: Right lower leg: Edema present. Left lower leg: Edema present. Comments: Piting edema upto the thighs Skin: General: Skin is warm and dry. Neurological: Mental Status: He is alert and oriented to person, place, and time. Psychiatric: Mood and Affect: Mood normal. Behavior: Behavior normal. Thought Content: Thought content normal. Judgment: Judgment normal. Medications: Scheduled PRN Scheduled Meds[2] PRN Meds[3] Continuous Continuous Meds[4] Assessment Data: (CAT1) Reviewed 3 or more notes from different specialty or health system (each=1). (LOW: 2x CAT1 or independent historian MOD: 3x CAT1 or 1x CAT3 EXTENSIVE: 3x CAT1 and 1x CAT3) Acute, acute on chronic, unstable/uncontrolled chronic problems/diagnoses: Acute exacerbation of HFrEF Metoprolol 100 twice daily Entresto low-dose twice daily IV lasix 80 BID per cards Stable chronic problems affecting care, new non-acute diagnoses: CKD 3, history of DVT/PE, not on anticoagulation hypertension, hyperlipidemia, Diabetes Gabapentin 100 twice daily Glipizide 2.5 oral daily before breakfast Low-dose sliding scale Hypothyroidism -Synthroid 25 mcg daily non-Hodgkin's lymphoma, bladder cancer GERD-on sucralfate 1 g twice daily, Protonix 40 daily BPH-tamsulosin 0.4 mg oral Anxiety/depression-Zoloft 25 daily Plan As a result of the above findings & factors, the following mgmt was pursued: Acute exacerbation of HFrEF HF following Current diuresi (more content not included)...[facility] [id number] Plan of care note* Care Plan - Ana M Flores RN - 01/29/2025 4:19 AM EDT Problem: Knowledge Deficit Goal: Patient/family/caregiver demonstrates understanding of disease process, treatment plan, medications, and discharge instructions Outcome: Progressing Problem: Hemodynamic Status Goal: Patient's vitals signs are stable Outcome: Progressing Problem: Excessive Fluid Volume Goal: Fluid and electrolyte balance are achieved/maintained Outcome: Progressing Problem: Inadequate Gas Exchange Goal: Patient is adequately oxygenated and ventilation is improved Outcome: Progressing Goal: Nutritional status is improving Outcome: Progressing Problem: Activity Intolerance/Impaired Mobility Goal: Mobility/activity is maintained at optimum level for patient Outcome: Progressing Problem: Nutrition Goal: Nutritional status is improving Outcome: Progressing Problem: Pain - Adult Goal: Verbalizes/displays adequate comfort level or baseline comfort level Outcome: Progressing Problem: Safety - Adult Goal: Free from fall injury Outcome: Progressing [facility] [id number] History and physical note* Rogelio Adams MD - 01/28/2025 5:44 PM EDT History and Physical Admit Date: 01/28/2025 PCP: Gibson Roth (Inactive) CHIEF COMPLAINT: sob HISTORY OF PRESENT ILLNESS: Megan Nascimento is a 84 y.o. male medical history of CHF with reduced ejection fraction (41% 2021), AICD, CKD 3, history of DVT/PE, hypertension, hyperlipidemia, diabetes, hypothyroidism, non-Hodgkin's lymphoma, bladder cancer who presents to the emergency department with fluid overload/CHF exacerbation. Endorsing progressively worsening lower extremity edema over the last 3 weeks. Endorses scrotal edema over the last few days. Seen in Ed by cardiology and diuresed-- now somewhat improved Also with some ? Issues with urine retention lately Denies chest pain, Past Medical History: Medical History[1] Past Surgical History: Surgical History[2] Social History: Social History Socioeconomic History Marital status: Spouse name: Not on file Number of children: Not on file Years of education: Not on file Highest education level: Not on file Occupational History Not on file Tobacco Use Smoking status: Former Current packs/day: 0.00 Types: Cigarettes Quit date: 11/08/1999 Years since quittin.2 Smokeless tobacco: Never Substance and Sexual Activity Alcohol use: Yes Comment: occasionally Drug use: No Comment: caffeine:1-2 cups of coffee a day Sexual activity: Not on file Other Topics Concern Not on file Social History Narrative Not on file Social Drivers of Health Financial Resource Strain: Not on file Food Insecurity: Not on file Transportation Needs: Not on file Physical Activity: Not on file Stress: Not on file Social Connections: Not on file Intimate Partner Violence: Not At Risk (01/28/2025) Humiliation, Afraid, Rape, and Kick questionnaire Fear of Current or Ex-Partner: No Emotionally Abused: No Physically Abused: No Sexually Abused: No Housing Stability: Not on file Family History: Family History[3] Medications Prior to Admission: Current Medications[4] Allergies: Atorvastatin, Latanoprost, Lovastatin, and Other REVIEW OF SYSTEMS: Constitutional: Negative for fever, chills, Respiratory: pos for shortness of breath, Cardiovascular: Negative for chest pain. Gastrointestinal: Negative for nausea, vomiting, abdominal pain, diarrhea Genitourinary: Negative for dysuria, frequency and flank pain. Musculoskeletal: Negative for myalgias and joint swelling. Skin: Negative for rash. Neurological: Negative for dizziness, tremors, Psychiatric/Behavioral: Negative for suicidal ideas, , self-injury and dysphoric mood. Vitals: BP 125/77 (BP Location: Right arm, Patient Position: Sitting) Pulse 70 Temp 36.3 C (97.3 F) (Temporal) Resp 20 Ht 5' 7 (1.702 m) Wt 193 lb 9.6 oz (87.8 kg) SpO2 98% BMI 30.32 kg/m Pulse Ox: SpO2 Av.6 % Min: 97 % Max: 99 % Supplemental O2: PHYSICAL EXAM: CONSTITUTIONAL: awake, alert, cooperative, no apparent distress, and appears stated age HEART: RRR, LUNGS: fine crackle at base ABDOMEN: soft/NT/ND, positive BS MUSCULOSKELETAL: pos for edema, +2 pulses SKIN: intact Neuro: No obvious focal deficits DATA: Recent Results (from the past 24 hours) ECG 12 lead (Now) Collection Time: 01/28/25 2:24 AM Result Value Ref Range Heart Rate 70 bpm QRSD Interval 144 ms QT Interval 469 ms QTC Interval 507 ms P [place] 55 degrees QRS [place] 223 degrees T Wave [place] 37 degrees TN Interval 264 ms Basic metabolic panel Collection Time: 01/28/25 2:38 AM Result Value Ref Range SODIUM 141 136 - 145 mmol/L POTASSIUM 4.2 3.5 - 5.1 mmol/L CHLORIDE 106 98 - 107 mmol/L CARBON DIOXIDE 21 (L) 23 - 31 mmol/L UREA NITROGEN 40 (H) 9 - 23 mg/dL CREATININE 2.37 (H) 0.72 - 1.25 mg/dL GLUCOSE 79 (L) 82 - 115 mg/dL CALCIUM 8.7 (L) 8.8 - 10.0 mg/dL ANION GAP 14 (H) 3 - 13 mmol/L eGFR 26.2 (L) >60.0 mL/min/1.73m*2 CBC auto differential Collection Time: 01/28/25 2:38 AM Result Value Ref Range Auto WBC 5.9 3.6 - 10.7 10*3/uL RBC 5.27 4.40 - 5.90 10*6/uL Hemoglobin 15.2 13.0 - 18.0 g/dL Hematocrit 46.0 40.0 - 52.0 % MCV 87.3 77.0 - 99.0 fL MCH 28.8 26.0 - 34.0 pg MCHC 33.0 30.5 - 36.0 % RDW 19.5 (H) 11.5 - 15.0 % Platelets 230 140 - 440 10*3/uL MPV 10.4 9.0 - 12.7 fL nRBC 0.0 0.0 - 2.0 /100 WBCs Neutrophils Relative 63.9 38.0 - 82.0 % Lymphocytes Relative 22.5 15.0 - 45.0 % Monocytes Relative 8.7 5.0 - 13.0 % Eosinophils Relative 2.9 0.0 - 6.0 % Basophils Relative 1.7 0.0 - 2.0 % Immature Grans % 0.3 0.0 - 2.0 % Neutrophils Absolute 3.8 1.8 - 7.5 10*3/uL Lymphocytes Absolute 1.3 1.0 - 4.3 10*3/uL Monocytes Absolute 0.5 0.0 - 0.9 10*3/uL Eosinophils Absolute 0.2 0.0 - 0.5 10*3/uL Basophils Absolute 0.1 0.0 - 0.2 10*3/uL Immature Grans Absolute 0.0 <0.1 10*3/uL Serial Troponin, High Sensitivity Collection Time: 01/28/25 2:38 AM Result Value Ref Range Troponin HS Serial Baseline 32 <=35 ng/L NT PRO BNP Collection Time: 01/28/25 2:38 AM Result Value Ref Range NT PRO BNP 23,300 (H) <450 pg/mL POCT glucose meter Collection Time: 01/28/25 3:49 AM Result Value Ref Range Glucose 124 (H) 70 - 100 mg/dL POCT glucose meter Collection Time: 01/28/25 9:32 AM Result Value Ref Range Glucose 74 70 - 100 mg/dL POCT glucose meter Collection Time: 01/28/25 11:50 AM Result Value Ref Range Glucose 89 70 - 100 mg/dL I reviewed: [x] laboratory results [x] radiographic results At the time of today's encounter. Discussed management with the ED provider and agree with hospitalization. 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) HTN (hypertension) Follicular non-Hodgkin's lymphoma (HCC) CKD 4 Hx PE Following with HF team Diuresis as able Following BMP Will check PVR Cont supportive senior care medications otherwise Due to the review of above complex data and the acute illness and/or undiagnosed new problem which may pose significant morbidity, The complexity of this case is: High Orders Placed This Encounter Procedures XR chest 1 view Basic metabolic panel CBC auto differential Serial Troponin, High Sensitivity NT PRO BNP Basic metabolic panel CBC auto differential Adult diet Regular; 5 carb choices (75 gm/meal); Low Fat/Low Chol/High Fiber/2 gm Na Vital Signs Nursing communication Apple juice > repeat POC glucose HYPOGLYCEMIA TREATMENT: blood glucose less than 50 mg/dL and patient ALERT and TOLERATING PO HYPOGLYCEMIA TREATMENT: blood glucose less than 70 mg/dL and patient NOT ALERT or NPO OK to remove per nurse driven telemetry protocol- Begin review at 48 hours Telemetry monitoring for Other Indication; gi bleed Daily weights Strict intake and output Inpatient consult to Cardiology--[facility]; CHF exacerbation Inpatient consult to Wound Prevention POCT glucose meter POCT glucose meter POCT glucose meter ECG 12 lead (Now) Insert peripheral IV Admit to inpatient Transfer patient to new unit Code status: No Order Please forward a copy of this H&P to the patient's PCP. Thank you. Rogelio Adams MD Medications Reconciliation: Medications were reviewed in chart but unable to verify accurate with patient [1] Past Medical History: Diagnosis Date Acute HFrEF (heart failure with reduced ejection fraction) ([facility]) 09/22/2020 Bladder cancer (HCC) CHF (congestive heart failure) (HCC) Chronic HFrEF (heart failure with reduced ejection fraction) ([facility]) 09/21/2020 Chronic kidney disease DM (diabetes mellitus) (HCC) DM (diabetes mellitus) (HCC) DVT (deep venous thrombosis) (HCC) ED (erectile dysfunction) Follicular non-Hodgkin's lymphoma (HCC) GERD (gastroesophageal reflux disease) GERD (gastroesophageal reflux disease) HTN (hypertension) HTN (hypertension) Hyperlipidemia Left bundle branch block 09/11/2020 Non-ischemic cardiomyopathy (CMS/HCC) ([facility]) Presence of cardiac resynchronization therapy defibrillator (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) 01/17/2022 PUD (peptic ulcer disease) Pulmonary embolism (HCC) Pulmonary fibrosis (HCC) Rosacea Stage 3b chronic kidney disease (HCC) 09/21/2020 Tachycardia [2] Past Surgical History: Procedure Laterality Date BONE MARROW BIOPSY CARDIAC PACEMAKER PLACEMENT COLONOSCOPY COLONOSCOPY COSMETIC SURGERY face lift, rhinoplasty EYE SURGERY cataract removal FACIAL COSMETIC SURGERY LYMPH NODE BIOPSY SEPTOPLASTY SKIN BIOPSY VENTRICULAR CARDIAC PACEMAKER INSERTION 09/11/2020 Bi-V ICD [3] Family History Problem Relation Name Age of Onset High Blood Pressure Father High Blood Pressure Mother [4] Current Facility-Administered Medications: cholecalciferol (Vitamin D-3) tablet 25 mcg, 25 mcg, Oral, Daily, Moises Adan MD, 25 mcg at cyanocobalamin (Vitamin B-12) tablet 1,000 mcg, 1,000 mcg, Oral, Daily, Moises Adan MD dextrose 5 % infusion, 100 mL/hr, IntraVENous, PRN, Moises Adan MD dextrose 50 % solution 12.5 g, 12.5 g, IntraVENous, PRN, Moises Adan MD ferrous sulfate tablet 325 mg, 325 mg, Oral, Daily with breakfast, Moises Adan MD, 325 mg at 01/28/25935 furosemide (Lasix) injection 80 mg, 80 mg, IntraVENous, BID, Wm Lund MD gabapentin (Neurontin) capsule 100 mg, 100 mg, Oral, BID, Moises Adan MD, 100 mg at 01/28/25935 [START ON 01/29/2025] glipiZIDE (Glucotrol) tablet 2.5 mg, 2.5 mg, Oral, qAM AC, Moises Adan MD glucagon (human recombinant) injection 1 mg, 1 mg, IntraMUSCular, PRN, Moises Adan MD glucose oral gel 15 g, 15 g, Oral, PRN, Moises Adan MD Insulin Lispro (Humalog) injection 0-12 Units, 0-12 Units, SubCUTAneous, TID WC AND Insulin Lispro (Humalog) injection 0-12 Units, 0-12 Units, SubCUTAneous, Nightly, Moises Adan MD levothyroxine (Synthroid, Levoxyl) tablet 25 mcg, 25 mcg, Oral, Daily, Moises Adan MD, 25 mcg at 01/28/25935 metoprolol succinate XL (Toprol-XL) 24 hr tablet 100 mg, 100 mg, Oral, Daily, Moises Adan MD, 100 mgat 01/28/25935 [START ON 01/29/2025] pantoprazole (ProtoNix) EC tablet 40 mg, 40 mg, Oral, qAM CAITLIN, Moises Adan MD sacubitril-valsartan (Entresto) 24-26 MG per tablet 1 tablet, 1 tablet, Oral, BID, Moises Adan MD, 1tablet at 01/28/25934 sertraline (Zoloft) tablet 25 mg, 25 mg, Oral, Daily, Moises Adan MD, 25 mg at 01/28/25 1212 sucralfate (Carafate) tablet 1 g, 1 g, Oral, BID AC, Moises Adan MD, 1 g at 01/28/25 1552 tamsulosin (Flomax) 24 hr capsule 0.4 mg, 0.4 mg, Oral, Daily, Moises Adan MD, 0.4 mg at 01/28/2535 therapeutic multivitamin-minerals (Theragran-M) tablet, 1 tablet, Oral, Daily, Moises Adan MD, 1 tablet at 01/28/25935 [Held by provider] torsemide (Demadex) tablet 20 mg, 20 mg, Oral, BID, Moises Adan MD, 20 mg at 01/28/25 0934 [id number] NoteHistory and Physical Admit Date: 01/28/2025 PCP: Gibson Roth (Inactive) CHIEF COMPLAINT: sob HISTORY OF PRESENT ILLNESS: Megan Nascimento is a 84 y.o. male medical history of CHF with reduced ejection fraction (41% 2021), AICD, CKD 3, history of DVT/PE, hypertension, hyperlipidemia, diabetes, hypothyroidism, non-Hodgkin's lymphoma, bladder cancer who presents to the emergency department with fluid overload/CHF exacerbation. Endorsing progressively worsening lower extremity edema over the last 3 weeks. Endorses scrotal edema over the last few days. Seen in Ed by cardiology and diuresed-- now somewhat improved Also with some ? Issues with urine retention lately Denies chest pain, Past Medical History: Medical History[1] Past Surgical History: Surgical History[2] Social History: Social History Socioeconomic History Marital status: Spouse name: Not on file Number of children: Not on file Years of education: Not on file Highest education level: Not on file Occupational History Not on file Tobacco Use Smoking status: Former Current packs/day: 0.00 Types: Cigarettes Quit date: 11/08/1999 Years since quittin.2 Smokeless tobacco: Never Substance and Sexual Activity Alcohol use: Yes Comment: occasionally Drug use: No Comment: caffeine:1-2 cups of coffee a day Sexual activity: Not on file Other Topics Concern Not on file Social History Narrative Not on file Social Drivers of Health Financial Resource Strain: Not on file Food Insecurity: Not on file Transportation Needs: Not on file Physical Activity: Not on file Stress: Not on file Social Connections: Not on file Intimate Partner Violence: Not At Risk (01/28/2025) Humiliation, Afraid, Rape, and Kick questionnaire Fear of Current or Ex-Partner: No Emotionally Abused: No Physically Abused: No Sexually Abused: No Housing Stability: Not on file Family History: Family History[3] Medications Prior to Admission: Current Medications[4] Allergies: Atorvastatin, Latanoprost, Lovastatin, and Other REVIEW OF SYSTEMS: Constitutional: Negative for fever, chills, Respiratory: pos for shortness of breath, Cardiovascular: Negative for chest pain. Gastrointestinal: Negative for nausea, vomiting, abdominal pain, diarrhea Genitourinary: Negative for dysuria, frequency and flank pain. Musculoskeletal: Negative for myalgias and joint swelling. Skin: Negative for rash. Neurological: Negative for dizziness, tremors, Psychiatric/Behavioral: Negative for suicidal ideas, , self-injury and dysphoric mood. Vitals: BP 125/77 (BP Location: Right arm, Patient Position: Sitting) Pulse 70 Temp 36.3 ?C (97.3 ?F) (Temporal) Resp 20 Ht 5' 7 (1.702 m) Wt 193 lb 9.6 oz (87.8 kg) SpO2 98% BMI 30.32 kg/m? Pulse Ox: SpO2 Av.6 % Min: 97 % Max: 99 % Supplemental O2: PHYSICAL EXAM: CONSTITUTIONAL: awake, alert, cooperative, no apparent distress, and appears stated age HEART: RRR, LUNGS: fine crackle at base ABDOMEN: soft/NT/ND, positive BS MUSCULOSKELETAL: pos for edema, +2 pulses SKIN: intact Neuro: No obvious focal deficits DATA: Recent Results (from the past 24 hours) ECG 12 lead (Now) Collection Time: 01/28/25 2:24 AM Result Value Ref Range Heart Rate 70 bpm QRSD Interval 144 ms QT Interval 469 ms QTC Interval 507 ms P [place] 55 degrees QRS [place] 223 degrees T Wave [place] 37 degrees TN Interval 264 ms Basic metabolic panel Collection Time: 01/28/25 2:38 AM Result Value Ref Range SODIUM 141 136 - 145 mmol/L POTASSIUM 4.2 3.5 - 5.1 mmol/L CHLORIDE 106 98 - 107 mmol/L CARBON DIOXIDE 21 (L) 23 - 31 mmol/L UREA NITROGEN 40 (H) 9 - 23 mg/dL CREATININE 2.37 (H) 0.72 - 1.25 mg/dL GLUCOSE 79 (L) 82 - 115 mg/dL CALCIUM 8.7 (L) 8.8 - 10.0 mg/dL ANION GAP 14 (H) 3 - 13 mmol/L eGFR 26.2 (L) >60.0 mL/min/1.73m*2 CBC auto differential Collection Time: 01/28/25 2:38 AM Result Value Ref Range Auto WBC 5.9 3.6 - 10.7 10*3/uL RBC 5.27 4.40 - 5.90 10*6/uL Hemoglobin 15.2 13.0 - 18.0 g/dL Hematocrit 46.0 40.0 - 52.0 % MCV 87.3 77.0 - 99.0 fL MCH 28.8 26.0 - 34.0 pg MCHC 33.0 30.5 - 36.0 % RDW 19.5 (H) 11.5 - 15.0 % Platelets 230 140 - 440 10*3/uL MPV 10.4 9.0 - 12.7 fL nRBC 0.0 0.0 - 2.0 /100 WBCs Neutrophils Relative 63.9 38.0 - 82.0 % Lymphocytes Relative 22.5 15.0 - 45.0 % Monocytes Relative 8.7 5.0 - 13.0 % Eosinophils Relative 2.9 0.0 - 6.0 % Basophils Relative 1.7 0.0 - 2.0 % Immature Grans % 0.3 0.0 - 2.0 % Neutrophils Absolute 3.8 1.8 - 7.5 10*3/uL Lymphocytes Absolute 1.3 1.0 - 4.3 10*3/uL Monocytes Absolute 0.5 0.0 - 0.9 10*3/uL Eosinophils Absolute 0.2 0.0 - 0.5 10*3/uL Basophils Absolute 0.1 0.0 - 0.2 10*3/uL Immature Grans Absolute 0.0 <0.1 10*3/uL Serial Troponin, High Sensitivity Collection Time: 01/28/25 2:38 AM Result Value Ref Range Troponin HS Serial Baseline 32 <=35 ng/L NT PRO BNP Collection T (more content not included)...[facility] [id number] History and physical note* Rogelio Adams MD - 01/28/2025 5:44 PM EDT History and Physical Admit Date: 01/28/2025 PCP: Gibson Roth (Inactive) CHIEF COMPLAINT: sob HISTORY OF PRESENT ILLNESS: Megan Nascimento is a 84 y.o. male medical history of CHF with reduced ejection fraction (41% 2021), AICD, CKD 3, history of DVT/PE, hypertension, hyperlipidemia, diabetes, hypothyroidism, non-Hodgkin's lymphoma, bladder cancer who presents to the emergency department with fluid overload/CHF exacerbation. Endorsing progressively worsening lower extremity edema over the last 3 weeks. Endorses scrotal edema over the last few days. Seen in Ed by cardiology and diuresed-- now somewhat improved Also with some ? Issues with urine retention lately Denies chest pain, Past Medical History: Medical History[1] Past Surgical History: Surgical History[2] Social History: Social History Socioeconomic History Marital status: Spouse name: Not on file Number of children: Not on file Years of education: Not on file Highest education level: Not on file Occupational History Not on file Tobacco Use Smoking status: Former Current packs/day: 0.00 Types: Cigarettes Quit date: 11/08/1999 Years since quittin.2 Smokeless tobacco: Never Substance and Sexual Activity Alcohol use: Yes Comment: occasionally Drug use: No Comment: caffeine:1-2 cups of coffee a day Sexual activity: Not on file Other Topics Concern Not on file Social History Narrative Not on file Social Drivers of Health Financial Resource Strain: Not on file Food Insecurity: Not on file Transportation Needs: Not on file Physical Activity: Not on file Stress: Not on file Social Connections: Not on file Intimate Partner Violence: Not At Risk (01/28/2025) Humiliation, Afraid, Rape, and Kick questionnaire Fear of Current or Ex-Partner: No Emotionally Abused: No Physically Abused: No Sexually Abused: No Housing Stability: Not on file Family History: Family History[3] Medications Prior to Admission: Current Medications[4] Allergies: Atorvastatin, Latanoprost, Lovastatin, and Other REVIEW OF SYSTEMS: Constitutional: Negative for fever, chills, Respiratory: pos for shortness of breath, Cardiovascular: Negative for chest pain. Gastrointestinal: Negative for nausea, vomiting, abdominal pain, diarrhea Genitourinary: Negative for dysuria, frequency and flank pain. Musculoskeletal: Negative for myalgias and joint swelling. Skin: Negative for rash. Neurological: Negative for dizziness, tremors, Psychiatric/Behavioral: Negative for suicidal ideas, , self-injury and dysphoric mood. Vitals: BP 125/77 (BP Location: Right arm, Patient Position: Sitting) Pulse 70 Temp 36.3 C (97.3 F) (Temporal) Resp 20 Ht 5' 7 (1.702 m) Wt 193 lb 9.6 oz (87.8 kg) SpO2 98% BMI 30.32 kg/m Pulse Ox: SpO2 Av.6 % Min: 97 % Max: 99 % Supplemental O2: PHYSICAL EXAM: CONSTITUTIONAL: awake, alert, cooperative, no apparent distress, and appears stated age HEART: RRR, LUNGS: fine crackle at base ABDOMEN: soft/NT/ND, positive BS MUSCULOSKELETAL: pos for edema, +2 pulses SKIN: intact Neuro: No obvious focal deficits DATA: Recent Results (from the past 24 hours) ECG 12 lead (Now) Collection Time: 01/28/25 2:24 AM Result Value Ref Range Heart Rate 70 bpm QRSD Interval 144 ms QT Interval 469 ms QTC Interval 507 ms P [place] 55 degrees QRS [place] 223 degrees T Wave [place] 37 degrees TN Interval 264 ms Basic metabolic panel Collection Time: 01/28/25 2:38 AM Result Value Ref Range SODIUM 141 136 - 145 mmol/L POTASSIUM 4.2 3.5 - 5.1 mmol/L CHLORIDE 106 98 - 107 mmol/L CARBON DIOXIDE 21 (L) 23 - 31 mmol/L UREA NITROGEN 40 (H) 9 - 23 mg/dL CREATININE 2.37 (H) 0.72 - 1.25 mg/dL GLUCOSE 79 (L) 82 - 115 mg/dL CALCIUM 8.7 (L) 8.8 - 10.0 mg/dL ANION GAP 14 (H) 3 - 13 mmol/L eGFR 26.2 (L) >60.0 mL/min/1.73m*2 CBC auto differential Collection Time: 01/28/25 2:38 AM Result Value Ref Range Auto WBC 5.9 3.6 - 10.7 10*3/uL RBC 5.27 4.40 - 5.90 10*6/uL Hemoglobin 15.2 13.0 - 18.0 g/dL Hematocrit 46.0 40.0 - 52.0 % MCV 87.3 77.0 - 99.0 fL MCH 28.8 26.0 - 34.0 pg MCHC 33.0 30.5 - 36.0 % RDW 19.5 (H) 11.5 - 15.0 % Platelets 230 140 - 440 10*3/uL MPV 10.4 9.0 - 12.7 fL nRBC 0.0 0.0 - 2.0 /100 WBCs Neutrophils Relative 63.9 38.0 - 82.0 % Lymphocytes Relative 22.5 15.0 - 45.0 % Monocytes Relative 8.7 5.0 - 13.0 % Eosinophils Relative 2.9 0.0 - 6.0 % Basophils Relative 1.7 0.0 - 2.0 % Immature Grans % 0.3 0.0 - 2.0 % Neutrophils Absolute 3.8 1.8 - 7.5 10*3/uL Lymphocytes Absolute 1.3 1.0 - 4.3 10*3/uL Monocytes Absolute 0.5 0.0 - 0.9 10*3/uL Eosinophils Absolute 0.2 0.0 - 0.5 10*3/uL Basophils Absolute 0.1 0.0 - 0.2 10*3/uL Immature Grans Absolute 0.0 <0.1 10*3/uL Serial Troponin, High Sensitivity Collection Time: 01/28/25 2:38 AM Result Value Ref Range Troponin HS Serial Baseline 32 <=35 ng/L NT PRO BNP Collection Time: 01/28/25 2:38 AM Result Value Ref Range NT PRO BNP 23,300 (H) <450 pg/mL POCT glucose meter Collection Time: 01/28/25 3:49 AM Result Value Ref Range Glucose 124 (H) 70 - 100 mg/dL POCT glucose meter Collection Time: 01/28/25 9:32 AM Result Value Ref Range Glucose 74 70 - 100 mg/dL POCT glucose meter Collection Time: 01/28/25 11:50 AM Result Value Ref Range Glucose 89 70 - 100 mg/dL I reviewed: [x] laboratory results [x] radiographic results At the time of today's encounter. Discussed management with the ED provider and agree with hospitalization. 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) HTN (hypertension) Follicular non-Hodgkin's lymphoma (HCC) CKD 4 Hx PE Following with HF team Diuresis as able Following BMP Will check PVR Cont supportive senior care medications otherwise Due to the review of above complex data and the acute illness and/or undiagnosed new problem which may pose significant morbidity, The complexity of this case is: High Orders Placed This Encounter Procedures XR chest 1 view Basic metabolic panel CBC auto differential Serial Troponin, High Sensitivity NT PRO BNP Basic metabolic panel CBC auto differential Adult diet Regular; 5 carb choices (75 gm/meal); Low Fat/Low Chol/High Fiber/2 gm Na Vital Signs Nursing communication Apple juice > repeat POC glucose HYPOGLYCEMIA TREATMENT: blood glucose less than 50 mg/dL and patient ALERT and TOLERATING PO HYPOGLYCEMIA TREATMENT: blood glucose less than 70 mg/dL and patient NOT ALERT or NPO OK to remove per nurse driven telemetry protocol- Begin review at 48 hours Telemetry monitoring for Other Indication; gi bleed Daily weights Strict intake and output Inpatient consult to Cardiology--[facility]; CHF exacerbation Inpatient consult to Wound Prevention POCT glucose meter POCT glucose meter POCT glucose meter ECG 12 lead (Now) Insert peripheral IV Admit to inpatient Transfer patient to new unit Code status: No Order Please forward a copy of this H&P to the patient's PCP. Thank you. Rogelio Adams MD Medications Reconciliation: Medications were reviewed in chart but unable to verify accurate with patient [1] Past Medical History: Diagnosis Date Acute HFrEF (heart failure with reduced ejection fraction) ([facility]) 09/22/2020 Bladder cancer ([facility]) CHF (congestive heart failure) ([facility]) Chronic HFrEF (heart failure with reduced ejection fraction) ([facility]) 09/21/2020 Chronic kidney disease DM (diabetes mellitus) ([facility]) DM (diabetes mellitus) ([facility]) DVT (deep venous thrombosis) ([facility]) ED (erectile dysfunction) Follicular non-Hodgkin's lymphoma ([facility]) GERD (gastroesophageal reflux disease) GERD (gastroesophageal reflux disease) HTN (hypertension) HTN (hypertension) Hyperlipidemia Left bundle branch block 09/11/2020 Non-ischemic cardiomyopathy (CMS/HCC) ([facility]) Presence of cardiac resynchronization therapy defibrillator (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) 01/17/2022 PUD (peptic ulcer disease) Pulmonary embolism ([facility]) Pulmonary fibrosis ([facility]) Rosacea Stage 3b chronic kidney disease ([facility]) 09/21/2020 Tachycardia [2] Past Surgical History: Procedure Laterality Date BONE MARROW BIOPSY CARDIAC PACEMAKER PLACEMENT COLONOSCOPY COLONOSCOPY COSMETIC SURGERY face lift, rhinoplasty EYE SURGERY cataract removal FACIAL COSMETIC SURGERY LYMPH NODE BIOPSY SEPTOPLASTY SKIN BIOPSY VENTRICULAR CARDIAC PACEMAKER INSERTION 09/11/2020 Bi-V ICD [3] Family History Problem Relation Name Age of Onset High Blood Pressure Father High Blood Pressure Mother [4] Current Facility-Administered Medications: cholecalciferol (Vitamin D-3) tablet 25 mcg, 25 mcg, Oral, Daily, Moises Adan MD, 25 mcg at [id number] cyanocobalamin (Vitamin B-12) tablet 1,000 mcg, 1,000 mcg, Oral, Daily, Moises Adan MD dextrose 5 % infusion, 100 mL/hr, IntraVENous, PRN, Moises Adan MD dextrose 50 % solution 12.5 g, 12.5 g, IntraVENous, PRN, Moises Adan MD ferrous sulfate tablet 325 mg, 325 mg, Oral, Daily with breakfast, Moises Adan MD, 325 mg at 01/28/25935 furosemide (Lasix) injection 80 mg, 80 mg, IntraVENous, BID, Wm Lund MD gabapentin (Neurontin) capsule 100 mg, 100 mg, Oral, BID, Moises Adan MD, 100 mg at 01/28/25935 [START ON 01/29/2025] glipiZIDE (Glucotrol) tablet 2.5 mg, 2.5 mg, Oral, qAM AC, Moises Adan MD glucagon (human recombinant) injection 1 mg, 1 mg, IntraMUSCular, PRN, Moises Adan MD glucose oral gel 15 g, 15 g, Oral, PRN, Moises Adan MD Insulin Lispro (Humalog) injection 0-12 Units, 0-12 Units, SubCUTAneous, TID WC AND Insulin Lispro (Humalog) injection 0-12 Units, 0-12 Units, SubCUTAneous, Nightly, Moises Adan MD levothyroxine (Synthroid, Levoxyl) tablet 25 mcg, 25 mcg, Oral, Daily, Moises Adan MD, 25 mcg at 01/28/25935 metoprolol succinate XL (Toprol-XL) 24 hr tablet 100 mg, 100 mg, Oral, Daily, Moises Adan MD, 100 mgat 01/28/25935 [START ON 01/29/2025] pantoprazole (ProtoNix) EC tablet 40 mg, 40 mg, Oral, [facility] sacubitril-valsartan (Entresto) 24-26 MG per tablet 1 tablet, 1 tablet, Oral, BID, Moises Adan MD, 1tablet at 01/28/25934 sertraline (Zoloft) tablet 25 mg, 25 mg, Oral, Daily, Moises Adan MD, 25 mg at 01/28/25 1212 sucralfate (Carafate) tablet 1 g, 1 g, Oral, BID AC, Moises Adan MD, 1 g at 01/28/25 1552 tamsulosin (Flomax) 24 hr capsule 0.4 mg, 0.4 mg, Oral, Daily, Moises Adan MD, 0.4 mg at 01/28/25 0935 therapeutic multivitamin-minerals (Theragran-M) tablet, 1 tablet, Oral, Daily, Moises Adan MD, 1 tablet at 01/28/25 0936 [Held by provider] torsemide (Demadex) tablet 20 mg, 20 mg, Oral, BID, Moises Adan MD, 20 mg at 01/28/25 0934 documented in this [facility]07-11-2025 Emergency department Note* Aleksandra York RN - 01/28/2025 4:08 PM EDT Report given to [facility] for transfer [facility] [place] [id number] Emergency department Note* Aleksandra York RN - 01/28/2025 4:08 PM EDT Report given to [facility] for transfer to [facility] [place] * Aleksandra York RN - 01/28/2025 4:06 PM EDT Report called to Ca Mojica RN * Aleksandra York RN - 01/28/2025 12:30 PM EDT 250 cc of urine empted this am, pt wheeled to restroom, voided and stooled. * Lucas Fernandez RN - 01/28/2025 2:17 AM EDT No cardiac monitoring available at this time. Provider aware * Latricia Landa DO - 01/28/2025 1:43 AM EDT EMERGENCY DEPARTMENT ENCOUNTER Pt Name: Megan Nascimento Birthdate 1940 Date of evaluation: 01/28/2025 ED Provider: Latricia Landa DO CHIEF COMPLAINT Chief Complaint Patient presents with Congestive Heart Failure Retaining fluid, incomplete urination. Increased lasix yesterday at PMD HISTORY OF PRESENT ILLNESS (Location/Symptom, Timing/Onset, Context/Setting, Quality, Duration, Modifying Factors, Severity) Note limiting factors. I wore appropriate PPE for the entirety of this encounter. HPI Megan Nascimento is a 84 y.o. male medical history of CHF with reduced ejection fraction (41% 2021), AICD, CKD 3, history of DVT/PE, hypertension, hyperlipidemia, diabetes, hypothyroidism, non-Hodgkin's lymphoma, bladder cancer who presents to the emergency department with fluid overload/CHF exacerbation. Endorsing progressively worsening lower extremity edema over the last 3 weeks. Endorses scrotal edema over the last few days. Additionally endorsing 100 foot exertional dyspnea and orthopnea. Asymptomatic while at rest. Denies chest pain. 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 Diuretic dosing increased. Despite increased dosing of diuretic and taking 3 doses of increased diuretic, continuing to gain weight. States that he is up 1 pound from yesterday. Nursing Notes were reviewed. Limitations to history: None Outside historians: Family daughters REVIEW OF SYSTEMS Review of Systems Negative except per HPI PAST MEDICAL HISTORY Medical History[1] SURGICAL HISTORY Surgical History[2] CURRENT MEDICATIONS Previous Medications CHOLECALCIFEROL (VITAMIN D-3) 25 MCG (1000 UT) CAPSULE Take by mouth. CYANOCOBALAMIN (VITAMIN B-12) 1000 MCG TABLET Take 1 tablet by mouth in the morning. FERROUS SULFATE 325 (65 FE) MG TABLET Take 325 mg by mouth. GABAPENTIN (NEURONTIN) 100 MG CAPSULE Take 100 mg by mouth. GLIMEPIRIDE (AMARYL) 1 MG TABLET Take 1 mg by mouth daily (with breakfast). LEVOTHYROXINE (SYNTHROID, LEVOXYL) 25 MCG TABLET Take 25 mcg by mouth in the morning. METOPROLOL SUCCINATE XL (TOPROL-XL) 100 MG 24 HR TABLET Take 100 mg by mouth in the morning. MULTIPLE VITAMIN (MULTIVITAMIN) TABLET Take 1 tablet by mouth daily. PANTOPRAZOLE (PROTONIX) 40 MG EC TABLET daily ROSUVASTATIN (CRESTOR) 20 MG TABLET Take 20 mg by mouth daily. SACUBITRIL-VALSARTAN (ENTRESTO) 24-26 MG TABLET Take 1 tablet by mouth in the morning and 1 tablet before bedtime. SERTRALINE (ZOLOFT) 25 MG TABLET Take 25 mg by mouth in the morning. SUCRALFATE (CARAFATE) 1 G TABLET Take 1 g by mouth. TADALAFIL (CIALIS) 20 MG TABLET Take 1 tablet (20 mg) by mouth Daily as needed for erectile dysfunction. TAMSULOSIN (FLOMAX) 0.4 MG 24 HR CAPSULE Take 0.4 mg by mouth in the morning. TORSEMIDE (DEMADEX) 20 MG TABLET Take 1 tablet (20 mg) by mouth in the morning and 1 tablet (20 mg)in the evening. ALLERGIES Atorvastatin, Latanoprost, Lovastatin, and Other FAMILY HISTORY Family History[3] SOCIAL HISTORY Social History[4] SCREENINGS PHYSICAL EXAM ED Triage Vitals [01/28/25 0145] Temp Heart Rate Resp BP 36.6 C (97.9 F) 76 24 123/73 SpO2 Temp Source Heart Rate Source Patient Position 99 % Temporal Monitor -- BP Location FiO2 (%) -- -- Physical Exam BP 123/73 Pulse 76 Temp 36.6 C (97.9 F) (Temporal) Resp 24 Ht 1.702 m (5' 7) Wt 88.7 kg (195 lb 8 oz) SpO2 99% BMI 30.62 kg/m Constitutional: Alert, awake Lungs: CTABL, no wheezing, no rales. Conversational Heart: RRR , no murmurs, equal distal pulses to extremities, 3+ pitting edema bilateral lower extremities : Nonerythematous nontender edema scrotum. No scrotal or penile lesions. Normal testicular lie. No scrotal, testicular or epididymal tenderness or edema. Bilateral inguinal fold Geovanna infection DIAGNOSTIC RESULTS RADIOLOGY (Per Emergency Physician): Chest x-ray Cardiomegaly with pulmonary edema and small pleural effusions Interpretation per the Radiologist below, if available at the time of this note: XR chest 1 view Final Result See findings. Report Dictated on Electronically Signed By: David Preston MD Electronically Signed Date/Time: 01/28/2025 2:33 AM EDT LABS: Labs Reviewed BASIC METABOLIC PANEL - Abnormal Result Value SODIUM 141 POTASSIUM 4.2 CHLORIDE 106 CARBON DIOXIDE 21 (*) UREA NITROGEN 40 (*) CREATININE 2.37 (*) GLUCOSE 79 (*) CALCIUM 8.7 (*) ANION GAP 14 (*) eGFR 26.2 (*) Narrative: Slightly Hemolyzed CBC WITH AUTO DIFFERENTIAL - Abnormal Auto WBC 5.9 RBC 5.27 Hemoglobin 15.2 Hematocrit 46.0 MCV 87.3 MCH 28.8 MCHC 33.0 RDW 19.5 (*) Platelets 230 MPV 10.4 nRBC 0.0 Neutrophils Relative 63.9 Lymphocytes Relative 22.5 Monocytes Relative 8.7 Eosinophils Relative 2.9 Basophils Relative 1.7 Immature Grans % 0.3 Neutrophils Absolute 3.8 Lymphocytes Absolute 1.3 Monocytes Absolute 0.5 Eosinophils Absolute 0.2 Basophils Absolute 0.1 Immature Grans Absolute 0.0 NT PRO BNP - Abnormal NT PRO BNP 23,300 (*) HIGH SENSITIVITY TROPONIN, SERIAL BASELINE - Normal Troponin HS Serial Baseline 32 HIGH SENSITIVITY TROPONIN, SERIAL, SECOND TEST All other labs were within normal range or not returned as of this dictation. EMERGENCY DEPARTMENT COURSE and DIFFERENTIAL DIAGNOSIS/MDM: Vitals: Vitals: 01/28/25 0145 01/28/25 0147 01/28/25 0157 BP: 123/73 Pulse: 76 Resp: 24 Temp: 36.6 C (97.9 F) TempSrc: Temporal SpO2: 99% Weight: 88.7 kg (195 lb 8 oz) Height: 1.702 m (5' 7) 84 y.o. male medical history of CHF with reduced ejection fraction (41% 2021), AICD, CKD 3, historyof DVT/PE, hypertension, hyperlipidemia, diabetes, hypothyroidism, non-Hodgkin's lymphoma, bladder cancer who presents to the emergency department with fluid overload/CHF exacerbation. Endorsing progr essively worsening lower extremity edema over the last 3 weeks. Endorses scrotal edema over the last few days. Additionally endorsing 100 foot exertional dyspnea and orthopnea. Asymptomatic while at rest. Denies chest pain. 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 Diuretic dosing increased. Despite increased dosing of diuretic and taking 3 doses of increased diuretic, continuing to gain weight. States that he is up 1 pound from yesterday. Considered CHF exacerbation, ACS, GABI on CKD. Exam with nontoxic-appearing patient without respiratory distress. 3+ pitting edema bilateral lowerextremities. Scrotal edema without erythema or lesions. Lungs clear to auscultation. EKG ventricularly paced without ischemic changes by Sgarbossa's criteria Chest x-ray as interpreted by myself with cardiomegaly and pulmonary edema/pleural effusions consistent with volume overload Labs with elevated BNP (23,000), GABI on CKD. Troponin within normal limits. Glucose low (79). Patient asymptomatic. Given apple juice and repeat glucose check improved. Given IV Lasix 40 mg. Admitted medically for continued diuresis. ED Medications managed: Medications furosemide (Lasix) injection 40 mg (40 mg IntraVENous Given 01/28/25 0257) FINAL IMPRESSION 1. Acute systolic congestive heart failure (HCC) 2. Bilateral leg edema 3. Chronic kidney disease, unspecified CKD stage 4. AICD (automatic cardioverter/defibrillator) present DISPOSITION PATIENT REFERRED TO: No follow-up provider specified. DISCHARGE MEDICATIONS: New Prescriptions No medications on file (Comment: Please note this report has been produced using speech recognition software and may contain errors related to that system including errors in grammar, punctuation, and spelling, as well as words and phrases that may be inappropriate. If there are any questions or concerns please feel freeto contact the dictating provider for clarification.) Latrciia Landa DO (electronically signed) Emergency Medicine Provider [1] Past Medical History: Diagnosis Date Acute HFrEF (heart failure with reduced ejection fraction) ([facility]) 09/22/2020 Bladder cancer (HCC) CHF (congestive heart failure) ([facility]) Chronic HFrEF (heart failure with reduced ejection fraction) ([facility]) 09/21/2020 Chronic kidney disease DM (diabetes mellitus) (HCC) DM (diabetes mellitus) (HCC) DVT (deep venous thrombosis) (HCC) ED (erectile dysfunction) Follicular non-Hodgkin's lymphoma (HCC) GERD (gastroesophageal reflux disease) GERD (gastroesophageal reflux disease) HTN (hypertension) HTN (hypertension) Hyperlipidemia Left bundle branch block 09/11/2020 Non-ischemic cardiomyopathy (CMS/HCC) ([facility]) Presence of cardiac resynchronization therapy defibrillator (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) 01/17/2022 PUD (peptic ulcer disease) Pulmonary embolism (HCC) Pulmonary fibrosis (HCC) Rosacea Stage 3b chronic kidney disease (HCC) 09/21/2020 Tachycardia [2] Past Surgical History: Procedure Laterality Date BONE MARROW BIOPSY CARDIAC PACEMAKER PLACEMENT COLONOSCOPY COLONOSCOPY COSMETIC SURGERY face lift, rhinoplasty EYE SURGERY cataract removal FACIAL COSMETIC SURGERY LYMPH NODE BIOPSY SEPTOPLASTY SKIN BIOPSY VENTRICULAR CARDIAC PACEMAKER INSERTION 09/11/2020 Bi-V ICD [3] Family History Problem Relation Name Age of Onset High Blood Pressure Father High Blood Pressure Mother [4] Social History Socioeconomic History Marital status: Tobacco Use Smoking status: Former Current packs/day: 0.00 Types: Cigarettes Quit date: 11/08/1999 Years since quittin.2 Smokeless tobacco: Never Substance and Sexual Activity Alcohol use: Yes Comment: occasionally Drug use: No Comment: caffeine:1-2 cups of coffee a day Latricia Landa DO 01/28/25 0317 documented in this [facility]07-11-2025 Emergency department Note* Aleksandra York RN - 01/28/2025 4:06 PM EDT Report called to Ca Mojica RN [facility] [id number] NoteCARE PROGRESSION NOTE Diet order placed while pending transfer to [facility]. This patient was seen as a hospital courtesy for improved patient care and care progression. Thank you for allowing me to participate in the medical care of your patient. OSCAR INTERVENTIONS [x] Care Coordination & Progression [] Nursing Function [x] Orders Placed [] Symptom Assessment [] Patient Experience [] [facility]* Aleksandra York RN - 01/28/2025 12:30 PM EDT 250 cc of urine empted this am, pt wheeled to restroom, voided and stooled. [facility] [id number] Telephone encounter Note* Telephone Encounter - Dania Mcknight RN - 01/28/2025 9:40 AM EDT ----- Message from Ralph Roth MD sent at 01/26/2025 5:16 PM EDT ----- Please call Friday for update, thank you [facility] [id number] Miscellaneous Notes* Telephone Encounter - Dania Mcknight RN - 01/28/2025 9:40 AM EDT ----- Message from Ralph Roth MD sent at 01/26/2025 5:16 PM EDT ----- Please call Friday for update, thank you documented in this [facility]07-11-2025 Consult note* Wm Lund MD - 01/28/2025 9:09 AM EDTAssociated Order(s): IP CONSULT TO CARDIOLOGY CARDIOLOGY CONSULTATION Assessment/Plan: Cardiovascular Diagnoses # Acute on chronic heart failure with reduced ejection fraction: Nonischemic cardiomyopathy. BNP 23.3k. Dry weight in chart review is roughly 180lbs, presenting at 195lbs, target for diuresis is thus15 lbs. S/p 40mg IV furosemide at 0257. Cath 2018 with no significant disease, thus felt NICM. LastEF 41% from 2021. He is warm and mentating well. # Stage 4 CKD: Renal function is at baseline # History of PE: Not chronically maintained on OAC Recommendations: - IV furosemide 80mg BID - Strict I/O and BID BMP while IV diuresing - Dry weight target is 180lbs - Patient will be transferring to [facility], will put on the follow-up HF list - Continue home mteoprolol, entresto - Previously taken of spironolactone due to renal dysfunction and potassium abnormalities History of Present Illness: eMgan Nascimento is an 84 year old man presenting to the hospital with fluid overload. Mr. Nascimento reports exertional dyspnea, and progressive swelling over the past several weeks. This has been going for some time he reports, and he did try to ignore it for awhile but this kept building up. This progressed to the point that he was having more orthopnea, significant bilateral lower extremity swelling. He called Dr. Lane office and was seen for an urgent visit earlier this week and did increase oral diuretic for a few days, this did not get in front of the problem. CV History: Patient of Dr. Ralph Roth, with cardiovascular history of NICM with EF 20%, increased to 41% following CRTD. He had an urgent visit with Dr. Roth on 01/26 and torsemide increasd from20 to 60mg daily given his symptoms of acute on chronic heart failure--presumed 15-20lbs of volume overloaded. CV Meds (ambulatory): Metoprolol succinate 100mg BID, rosuvastatin 20mg, entresto 24-26mg, trosemide 20mg BID (recently increased to 60) Tests Reviewed: Chest X-Ray: From 01/28 shows vascular congestion, pulmonary edema EKG: Reviewed from 01/28/2025, a-sensed v-paced Telemetry: Sinus rhythm Echo: 02/2022 1. Left ventricle: Systolic function is moderately decreased by the biplane method of disks. The estimated ejection fraction is 41%. However visually it seems to be lower more in the range of 30-35%. Features are consistent with a pseudonormal left ventricular filling pattern, with concomitant abnormal relaxation and increased filling pressure (grade 2 diastolic dysfunction). 2. Right ventricle: The cavity size is mildly dilated. Pacer wire noted in the right ventricle. Systolic function is normal. Right ventricular systolic pressure is at the upper limits of normal. The RV pressure during systole by Doppler is 34 mm Hg. 3. Aortic valve: There is mild-moderate, 1-2+ regurgitation Cath : 2019, nonobstructive Physical Exam: VS: Vitals: 01/28/25 0145 01/28/25 0147 01/28/25 0157 01/28/25 0642 BP: 123/73 132/70 Pulse: 76 60 Resp: 24 17 Temp: 36.6 C (97.9 F) TempSrc: Temporal SpO2: 99% 99% Weight: 195 lb 8 oz (88.7 kg) Height: 5' 7 (1.702 m) No intake or output data in the 24 hours ending 01/28/25 0910 @[id number]@ Gen: Comfortable, pleasant, on room air Neck: JVP up to angle of mandible CV: Regular, soft systolic murmur Pulm: Bilateral crackles Abd: Soft/NT Neuro: Nonfocal Extrem: Bilateral pitting edema up to above the knees Pertinent Labs: ABGs: No results found for: PHART, PO2ART, [id number] INR: No results for input(s): INR in the last 72 hours. Cardiac Injury Profile: No results for input(s): CKTOTAL, CKMB, CKMBINDEX, TROPONINI in thelast 72 hours. Lipid Profile:No results found for: TRIG, HDL, LDLCALC, CHOL Hemoglobin A1C: No results found for: HGBA1C Wm Lund MD Cardiology [facility] [place] 9:10 AM 01/28/25 [employer] Work Phone: [phone] NoteCARDIOLOGY CONSULTATION Assessment/Plan: Cardiovascular Diagnoses # Acute on chronic heart failure with reduced ejection fraction: Nonischemic cardiomyopathy. BNP 23.3k. Dry weight in chart review is roughly 180lbs, presenting at 195lbs, target for diuresis is thus 15 lbs. S/p 40mg IV furosemide at 0257. Cath 2018 with no significant disease, thus felt NICM. Last EF 41% from 2021. He is warm and mentating well. # Stage 4 CKD: Renal function is at baseline # History of PE: Not chronically maintained on OAC Recommendations: - IV furosemide 80mg BID - Strict I/O and BID BMP while IV diuresing - Dry weight target is 180lbs - Patient will be transferring to [facility], will put on the follow-up HF list - Continue home mteoprolol, entresto - Previously taken of spironolactone due to renal dysfunction and potassium abnormalities History of Present Illness: Megan Nascimento is an 84 year old man presenting to the hospital with fluid overload. Mr. Nascimento reports exertional dyspnea, and progressive swelling over the past several weeks. This has been going for some time he reports, and he did try to ignore it for awhile but this kept building up. This progressed to the point that he was having more orthopnea, significant bilateral lower extremity swelling. He called Dr. Lane office and was seen for an urgent visit earlier this week and did increase oral diuretic for a few days, this did not get in front of the problem. CV History: Patient of Dr. Ralph Roth, with cardiovascular history of NICM with EF 20%, increased to 41% following CRTD. He had an urgent visit with Dr. Roth on 01/26 and torsemide increasd from 20 to 60mg daily given his symptoms of acute on chronic heart failure--presumed 15-20lbs of volume overloaded. CV Meds (ambulatory): Metoprolol succinate 100mg BID, rosuvastatin 20mg, entresto 24-26mg, trosemide 20mg BID (recently increased to 60) Tests Reviewed: Chest X-Ray: From 01/28 shows vascular congestion, pulmonary edema EKG: Reviewed from 01/28/2025, a-sensed v-paced Telemetry: Sinus rhythm Echo: 02/2022 1. Left ventricle: Systolic function is moderately decreased by the biplane method of disks. The estimated ejection fraction is 41%. However visually it seems to be lower more in the range of 30-35%. Features are consistent with a pseudonormal left ventricular filling pattern, with concomitant abnormal relaxation and increased filling pressure (grade 2 diastolic dysfunction). 2. Right ventricle: The cavity size is mildly dilated. Pacer wire noted in the right ventricle. Systolic function is normal. Right ventricular systolic pressure is at the upper limits of normal. The RV pressure during systole by Doppler is 34 mm Hg. 3. Aortic valve: There is mild-moderate, 1-2+ regurgitation Cath : 2019, nonobstructive Physical Exam: VS: Vitals: 01/28/25 0145 01/28/25 0147 01/28/25 0157 01/28/25 0642 BP: 123/73 132/70 Pulse: 76 60 Resp: 24 17 Temp: 36.6 ?C (97.9 ?F) TempSrc: Temporal SpO2: 99% 99% Weight: 195 lb 8 oz (88.7 kg) Height: 5' 7 (1.702 m) No intake or output data in the 24 hours ending 01/28/25 0910 @[id number]@ Gen: Comfortable, pleasant, on room air Neck: JVP up to angle of mandible CV: Regular, soft systolic murmur Pulm: Bilateral crackles Abd: Soft/NT Neuro: Nonfocal Extrem: Bilateral pitting edema up to above the knees Pertinent Labs: ABGs: No results found for: PHART, PO2ART, [id number] INR: No results for input(s): INR in the last 72 hours. Cardiac Injury Profile: No results for input(s): CKTOTAL, CKMB, CKMBINDEX, TROPONINI in the last 72 hours. Lipid Profile:No results found for: TRIG, HDL, LDLCALC, CHOL Hemoglobin A1C: No results found for: HGBA1C Wm Lund MD Cardiology [facility] [place] 9:10 AM 01/28/25[facility]07-11-2025 Emergency department Note* Lucas Fernandez RN - 01/28/2025 2:17 AM EDT No cardiac monitoring available at this time. Provider aware [facility] [id number] Physician Emergency department Note* Latricia Landa DO - 01/28/2025 1:43 AM EDT EMERGENCY DEPARTMENT ENCOUNTER Pt Name: Megan Nascimento Birthdate 1940 Date of evaluation: 01/28/2025 ED Provider: Latricia Landa DO CHIEF COMPLAINT Chief Complaint Patient presents with Congestive Heart Failure Retaining fluid, incomplete urination. Increased lasix yesterday at PMD HISTORY OF PRESENT ILLNESS (Location/Symptom, Timing/Onset, Context/Setting, Quality, Duration, Modifying Factors, Severity) Note limiting factors. I wore appropriate PPE for the entirety of this encounter. HPI Megan Nascimento is a 84 y.o. male medical history of CHF with reduced ejection fraction (41% 2021), AICD, CKD 3, history of DVT/PE, hypertension, hyperlipidemia, diabetes, hypothyroidism, non-Hodgkin's lymphoma, bladder cancer who presents to the emergency department with fluid overload/CHF exacerbation. Endorsing progressively worsening lower extremity edema over the last 3 weeks. Endorses scrotal edema over the last few days. Additionally endorsing 100 foot exertional dyspnea and orthopnea. Asymptomatic while at rest. Denies chest pain. 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 Diuretic dosing increased. Despite increased dosing of diuretic and taking 3 doses of increased diuretic, continuing to gain weight. States that he is up 1 pound from yesterday. Nursing Notes were reviewed. Limitations to history: None Outside historians: Family daughters REVIEW OF SYSTEMS Review of Systems Negative except per HPI PAST MEDICAL HISTORY Medical History[1] SURGICAL HISTORY Surgical History[2] CURRENT MEDICATIONS Previous Medications CHOLECALCIFEROL (VITAMIN D-3) 25 MCG (1000 UT) CAPSULE Take by mouth. CYANOCOBALAMIN (VITAMIN B-12) 1000 MCG TABLET Take 1 tablet by mouth in the morning. FERROUS SULFATE 325 (65 FE) MG TABLET Take 325 mg by mouth. GABAPENTIN (NEURONTIN) 100 MG CAPSULE Take 100 mg by mouth. GLIMEPIRIDE (AMARYL) 1 MG TABLET Take 1 mg by mouth daily (with breakfast). LEVOTHYROXINE (SYNTHROID, LEVOXYL) 25 MCG TABLET Take 25 mcg by mouth in the morning. METOPROLOL SUCCINATE XL (TOPROL-XL) 100 MG 24 HR TABLET Take 100 mg by mouth in the morning. MULTIPLE VITAMIN (MULTIVITAMIN) TABLET Take 1 tablet by mouth daily. PANTOPRAZOLE (PROTONIX) 40 MG EC TABLET daily ROSUVASTATIN (CRESTOR) 20 MG TABLET Take 20 mg by mouth daily. SACUBITRIL-VALSARTAN (ENTRESTO) 24-26 MG TABLET Take 1 tablet by mouth in the morning and 1 tablet before bedtime. SERTRALINE (ZOLOFT) 25 MG TABLET Take 25 mg by mouth in the morning. SUCRALFATE (CARAFATE) 1 G TABLET Take 1 g by mouth. TADALAFIL (CIALIS) 20 MG TABLET Take 1 tablet (20 mg) by mouth Daily as needed for erectile dysfunction. TAMSULOSIN (FLOMAX) 0.4 MG 24 HR CAPSULE Take 0.4 mg by mouth in the morning. TORSEMIDE (DEMADEX) 20 MG TABLET Take 1 tablet (20 mg) by mouth in the morning and 1 tablet (20 mg)in the evening. ALLERGIES Atorvastatin, Latanoprost, Lovastatin, and Other FAMILY HISTORY Family History[3] SOCIAL HISTORY Social History[4] SCREENINGS PHYSICAL EXAM ED Triage Vitals [01/28/25 0145] Temp Heart Rate Resp BP 36.6 C (97.9 F) 76 24 123/73 SpO2 Temp Source Heart Rate Source Patient Position 99 % Temporal Monitor -- BP Location FiO2 (%) -- -- Physical Exam BP 123/73 Pulse 76 Temp 36.6 C (97.9 F) (Temporal) Resp 24 Ht 1.702 m (5' 7) Wt 88.7 kg (195 lb 8 oz) SpO2 99% BMI 30.62 kg/m Constitutional: Alert, awake Lungs: CTABL, no wheezing, no rales. Conversational Heart: RRR , no murmurs, equal distal pulses to extremities, 3+ pitting edema bilateral lower extremities : Nonerythematous nontender edema scrotum. No scrotal or penile lesions. Normal testicular lie. No scrotal, testicular or epididymal tenderness or edema. Bilateral inguinal fold Geovanna infection DIAGNOSTIC RESULTS RADIOLOGY (Per Emergency Physician): Chest x-ray Cardiomegaly with pulmonary edema and small pleural effusions Interpretation per the Radiologist below, if available at the time of this note: XR chest 1 view Final Result See findings. Report Dictated on Electronically Signed By: David Preston MD Electronically Signed Date/Time: 01/28/2025 2:33 AM EDT LABS: Labs Reviewed BASIC METABOLIC PANEL - Abnormal Result Value SODIUM 141 POTASSIUM 4.2 CHLORIDE 106 CARBON DIOXIDE 21 (*) UREA NITROGEN 40 (*) CREATININE 2.37 (*) GLUCOSE 79 (*) CALCIUM 8.7 (*) ANION GAP 14 (*) eGFR 26.2 (*) Narrative: Slightly Hemolyzed CBC WITH AUTO DIFFERENTIAL - Abnormal Auto WBC 5.9 RBC 5.27 Hemoglobin 15.2 Hematocrit 46.0 MCV 87.3 MCH 28.8 MCHC 33.0 RDW 19.5 (*) Platelets 230 MPV 10.4 nRBC 0.0 Neutrophils Relative 63.9 Lymphocytes Relative 22.5 Monocytes Relative 8.7 Eosinophils Relative 2.9 Basophils Relative 1.7 Immature Grans % 0.3 Neutrophils Absolute 3.8 Lymphocytes Absolute 1.3 Monocytes Absolute 0.5 Eosinophils Absolute 0.2 Basophils Absolute 0.1 Immature Grans Absolute 0.0 NT PRO BNP - Abnormal NT PRO BNP 23,300 (*) HIGH SENSITIVITY TROPONIN, SERIAL BASELINE - Normal Troponin HS Serial Baseline 32 HIGH SENSITIVITY TROPONIN, SERIAL, SECOND TEST All other labs were within normal range or not returned as of this dictation. EMERGENCY DEPARTMENT COURSE and DIFFERENTIAL DIAGNOSIS/MDM: Vitals: Vitals: 01/28/25 0145 01/28/25 0147 01/28/25 0157 BP: 123/73 Pulse: 76 Resp: 24 Temp: 36.6 C (97.9 F) TempSrc: Temporal SpO2: 99% Weight: 88.7 kg (195 lb 8 oz) Height: 1.702 m (5' 7) 84 y.o. male medical history of CHF with reduced ejection fraction (41% 2021), AICD, CKD 3, historyof DVT/PE, hypertension, hyperlipidemia, diabetes, hypothyroidism, non-Hodgkin's lymphoma, bladder cancer who presents to the emergency department with fluid overload/CHF exacerbation. Endorsing progr essively worsening lower extremity edema over the last 3 weeks. Endorses scrotal edema over the last few days. Additionally endorsing 100 foot exertional dyspnea and orthopnea. Asymptomatic while at rest. Denies chest pain. 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 Diuretic dosing increased. Despite increased dosing of diuretic and taking 3 doses of increased diuretic, continuing to gain weight. States that he is up 1 pound from yesterday. Considered CHF exacerbation, ACS, GABI on CKD. Exam with nontoxic-appearing patient without respiratory distress. 3+ pitting edema bilateral lowerextremities. Scrotal edema without erythema or lesions. Lungs clear to auscultation. EKG ventricularly paced without ischemic changes by Sgarbossa's criteria Chest x-ray as interpreted by myself with cardiomegaly and pulmonary edema/pleural effusions consistent with volume overload Labs with elevated BNP (23,000), GABI on CKD. Troponin within normal limits. Glucose low (79). Patient asymptomatic. Given apple juice and repeat glucose check improved. Given IV Lasix 40 mg. Admitted medically for continued diuresis. ED Medications managed: Medications furosemide (Lasix) injection 40 mg (40 mg IntraVENous Given 01/28/25 0257) FINAL IMPRESSION 1. Acute systolic congestive heart failure (HCC) 2. Bilateral leg edema 3. Chronic kidney disease, unspecified CKD stage 4. AICD (automatic cardioverter/defibrillator) present DISPOSITION PATIENT REFERRED TO: No follow-up provider specified. DISCHARGE MEDICATIONS: New Prescriptions No medications on file (Comment: Please note this report has been produced using speech recognition software and may contain errors related to that system including errors in grammar, punctuation, and spelling, as well as words and phrases that may be inappropriate. If there are any questions or concerns please feel freeto contact the dictating provider for clarification.) Latricia Landa DO (electronically signed) Emergency Medicine Provider [1] Past Medical History: Diagnosis Date Acute HFrEF (heart failure with reduced ejection fraction) (HCC) 09/22/2020 Bladder cancer (HCC) CHF (congestive heart failure) (HCC) Chronic HFrEF (heart failure with reduced ejection fraction) (HCC) 09/21/2020 Chronic kidney disease DM (diabetes mellitus) (HCC) DM (diabetes mellitus) (HCC) DVT (deep venous thrombosis) (HCC) ED (erectile dysfunction) Follicular non-Hodgkin's lymphoma (HCC) GERD (gastroesophageal reflux disease) GERD (gastroesophageal reflux disease) HTN (hypertension) HTN (hypertension) Hyperlipidemia Left bundle branch block 09/11/2020 Non-ischemic cardiomyopathy (CMS/HCC) (HCC) Presence of cardiac resynchronization therapy defibrillator (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) 01/17/2022 PUD (peptic ulcer disease) Pulmonary embolism (HCC) Pulmonary fibrosis (HCC) Rosacea Stage 3b chronic kidney disease (HCC) 09/21/2020 Tachycardia [2] Past Surgical History: Procedure Laterality Date BONE MARROW BIOPSY CARDIAC PACEMAKER PLACEMENT COLONOSCOPY COLONOSCOPY COSMETIC SURGERY face lift, rhinoplasty EYE SURGERY cataract removal FACIAL COSMETIC SURGERY LYMPH NODE BIOPSY SEPTOPLASTY SKIN BIOPSY VENTRICULAR CARDIAC PACEMAKER INSERTION 09/11/2020 Bi-V ICD [3] Family History Problem Relation Name Age of Onset High Blood Pressure Father High Blood Pressure Mother [4] Social History Socioeconomic History Marital status: Tobacco Use Smoking status: Former Current packs/day: 0.00 Types: Cigarettes Quit date: 11/08/1999 Years since quittin.2 Smokeless tobacco: Never Substance and Sexual Activity Alcohol use: Yes Comment: occasionally Drug use: No Comment: caffeine:1-2 cups of coffee a day Latricia Landa DO 01/28/25 0317 [id number] History of Present illness Narrative* Ralph Roth MD - 01/26/2025 3:20 PM EDT Images from the original note were not included. [facility] [place] [address] [place] [address] [facility] [address] Dept: [phone] Dept Loc: [phone] DATE of SERVICE:01/26/25 TIME of SERVICE: 3:59 PM : 1940 Chief Complaint: Chief Complaint Patient presents with Follow-up History of PresentIllness: Megan Nascimento is a 84 y.o. male here for a semiurgent visit. His history includes Nonischemic cardiomyopathy, left ventricular ejection fraction 20% increased to 41% after cardiac resynchronization therapy and defibrillator placement. Heart failure with reduced left ventricular ejection fraction Stage IV chronic kidney disease, glomerular filtration rates in the 20s, last 126, creatinine 2.4 History of gastrointestinal bleeding and venous thromboembolic disease with pulmonary embolism. Cholecystitis, status post tube drainage due to his age and medical problems, did not have a cholecystectomy He was in his usual state of pretty good health until about 6 to 8 weeks ago when he had some epigastric discomfort, orthopnea, weight gain, and edema. He is also developed worsening shortness of breath. He thought he might be having gallbladder problems so he went to the hospital in [place]. Before he might have diverticulitis. His creatinine at that time was 2.4, GFR 26, hemoglobin 12.9. He continued to have symptoms and is here today with worsening edema, dyspnea, orthopnea. Past Medical History: Medical History[1] Past Surgical History Surgical History[2] Family History Family History[3] Social History Social History[4] Allergies: Allergies[5] Medications: Current Medications[6] Review of Systems: Review of Systems Constitutional: Negative for activity change, chills, diaphoresis, fatigue and fever. HENT: Negative for nosebleeds and trouble swallowing. Eyes: Negative for discharge and visual disturbance. Respiratory: Positive for shortness of breath. Negative for apnea, cough, chest tightness and wheezing. Cardiovascular: Positive for leg swelling. Negative for chest pain and palpitations. Gastrointestinal: Negative for abdominal distention, abdominal pain, blood in stool, diarrhea, nausea and vomiting. Endocrine: Negative for cold intolerance and heat intolerance. Genitourinary: Negative for hematuria. Musculoskeletal: Negative for gait problem and myalgias. Skin: Negative for color change and rash. Neurological: Negative for dizziness, seizures, syncope, facial asymmetry, speech difficulty, weakness, light-headedness, numbness and headaches. Hematological: Does not bruise/bleed easily. Psychiatric/Behavioral: Negative for dysphoric mood. Physical Examination: Vitals: Vitals: 01/26/25 1546 BP: 124/80 BP Location: Right arm Patient Position: Sitting BP Cuff Size: Large adult Pulse: 79 SpO2: 100% Weight: 194 lb 9.6 oz (88.3 kg) Height: 5' 7 (1.702 m) Body mass index is 30.48 kg/m . Physical Exam He appears frail but in no acute distress. He has jugular venous distention, soft heart sounds, clear lungs, and severe bilateral pitting pretibial edema. Laboratory Tests: Lab Results Component Value Date WBC 9.4 01/09/2024 HGB 12.6 (L) 01/09/2024 HCT 38.0 (L) 01/09/2024 MCV 88.8 01/09/2024 PLT 258 01/09/2024 Lab Results Component Value Date GLUCOSE 137 (H) 01/09/2024 CALCIUM 9.5 01/09/2024 NA 136 06/05/2022 K 5.1 06/05/2022 CO2 25 01/09/2024 CL 96 (L) 06/05/2022 BUN 51 (H) 01/09/2024 CREATININE 2.34 (H) 01/09/2024 @LASTCMP@ Lab Results Component Value Date CHOL 166 05/14/2021 Lab Results Component Value Date TRIG 109 05/14/2021 Lab Results Component Value Date HDL 34 (L) 05/14/2021 No results found for: LDLCALC NT PRO BNP Date Value Ref Range Status 05/19/2021 25,350 (H) 0 - 450 pg/mL Final Cardiac Tests: ECG: Sinus rhythm, atrial sensing, first-degree AV block, ventricular pacing Focused cardiac ultrasound: Not done Electrophysiology Tech present for focused cardiac ultrasound: Not applicable Assessment and Plan: 1. Primary hypertension Medical decision making My assessment is that he has acute on chronic systolic heart failure in the setting of advanced renal failure. He has had a history of pulmonary embolism and venous thromboembolic disease (probably not active) and advanced renal failure. Diagnostically, I sent a follow-up CBC, comprehensive metabolic panel therapeutically, increased his torsemide from 20 mg twice a day to 60 mg once a day. Educationally, explained this to him, his daughter, and his ex-. We will call him Friday for progress report. He probably has about 15 to 20pounds to lose. If we cannot improve things we will bring him in the hospital for IV diuretics. Will also get him back in a month. I, Ralph Roth MD, furnished ongoing care related to heart failure for their management, a serious and complex condition. I assume responsibility for the patient's ongoing medical care for this condition. [1] Past Medical History: Diagnosis Date Acute HFrEF (heart failure with reduced ejection fraction) ([facility]) 09/22/2020 Bladder cancer ([facility]) CHF (congestive heart failure) ([facility]) Chronic HFrEF (heart failure with reduced ejection fraction) ([facility]) 09/21/2020 Chronic kidney disease DM (diabetes mellitus) ([facility]) DM (diabetes mellitus) ([facility]) DVT (deep venous thrombosis) ([facility]) ED (erectile dysfunction) Follicular non-Hodgkin's lymphoma ([facility]) GERD (gastroesophageal reflux disease) GERD (gastroesophageal reflux disease) HTN (hypertension) HTN (hypertension) Hyperlipidemia Left bundle branch block 09/11/2020 Non-ischemic cardiomyopathy (CMS/HCC) ([facility]) Presence of cardiac resynchronization therapy defibrillator (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) 01/17/2022 PUD (peptic ulcer disease) Pulmonary embolism ([facility]) Pulmonary fibrosis ([facility]) Rosacea Stage 3b chronic kidney disease ([facility]) 09/21/2020 Tachycardia [2] Past Surgical History: Procedure Laterality Date BONE MARROW BIOPSY CARDIAC PACEMAKER PLACEMENT COLONOSCOPY COLONOSCOPY COSMETIC SURGERY face lift, rhinoplasty EYE SURGERY cataract removal FACIAL COSMETIC SURGERY LYMPH NODE BIOPSY SEPTOPLASTY SKIN BIOPSY VENTRICULAR CARDIAC PACEMAKER INSERTION 09/11/2020 Bi-V ICD [3] Family History Problem Relation Name Age of Onset High Blood Pressure Father High Blood Pressure Mother [4] Social History Tobacco Use Smoking status: Former Current packs/day: 0.00 Types: Cigarettes Quit date: 11/08/1999 Years since quittin.2 Smokeless tobacco: Never Substance Use Topics Alcohol use: Yes Comment: occasionally Drug use: No Comment: caffeine:1-2 cups of coffee a day [5] Allergies Allergen Reactions Atorvastatin Other reaction(s): Myalgia Latanoprost Other reaction(s): Blurring of visual image, Excessive tear production, Red eye Lovastatin Other reaction(s): Myalgia Other [6] Current Outpatient Medications: cholecalciferol (Vitamin D-3) 25 MCG (1000 UT) capsule, Take by mouth., Disp: , Rfl: cyanocobalamin (Vitamin B-12) 1000 MCG tablet, Take 1 tablet by mouth in the morning., Disp: , Rfl: ferrous sulfate 325 (65 Fe) MG tablet, Take 325 mg by mouth., Disp: , Rfl: gabapentin (Neurontin) 100 MG capsule, Take 100 mg by mouth., Disp: , Rfl: glimepiride (Amaryl) 1 MG tablet, Take 1 mg by mouth daily (with breakfast)., Disp: , Rfl: levothyroxine (Synthroid, Levoxyl) 25 MCG tablet, Take 25 mcg by mouth in the morning., Disp: , Rfl: metoprolol succinate XL (Toprol-XL) 100 MG 24 hr tablet, Take 100 mg by mouth in the morning., Disp: , Rfl: Multiple Vitamin (multivitamin) tablet, Take 1 tablet by mouth daily., Disp: , Rfl: pantoprazole (ProtoNix) 40 MG EC tablet, daily, Disp: , Rfl: rosuvastatin (Crestor) 20 MG tablet, Take 20 mg by mouth daily., Disp: , Rfl: sacubitril-valsartan (Entresto) 24-26 MG tablet, Take 1 tablet by mouth in the morning and 1 tabletbefore bedtime., Disp: 180 tablet, Rfl: 1 sertraline (Zoloft) 25 MG tablet, Take 25 mg by mouth in the morning., Disp: , Rfl: sucralfate (Carafate) 1 g tablet, Take 1 g by mouth., Disp: , Rfl: tadalafil (Cialis) 20 MG tablet, Take 1 tablet (20 mg) by mouth Daily as needed for erectile dysfunction., Disp: 10 tablet, Rfl: 0 tamsulosin (Flomax) 0.4 MG 24 hr capsule, Take 0.4 mg by mouth in the morning., Disp: , Rfl: torsemide (Demadex) 20 MG tablet, Take 1 tablet (20 mg) by mouth in the morning and 1 tablet (20 mg) in the evening., Disp: 180 tablet, Rfl: 3 documented in this [facility]05-25-2025 Radiology Diagnostic study note [facility] Imaging Services [address] [place] [address] Abdomen/Pelvis without Cont MR#: [id number] Acct: [id number] Name: MEGAN NASCIMENTO Rep #: [id number] : 1940 M 84 From: Pet er Darius MULLINS PCP: Dr. Rigoberto Durand MD Status: REG E R Study:Abdomen/Pelvis without Cont Date of Exa m: 12/12/24 Exam# [id number] Ordering Dr: Rena Lorenz ADDENDUM by Dr. Modesto Mccoy DO on 12/12/24 at 1435 Addendum created to complete C3-4 Bones: L4 compression fracture treated with vertebroplasty. No aggressive lyticor blastic bone lesions Impression Inflammatory process in the right lower quadrant, likely diverticulitis, with small volume free fluid, a bit more than trace, likely in the sigmoid colon which traverses across the pelvis to the right lower quadrant. Reading Location: [facility] 12/12/241434 Date cc: Dr. Rigoberto Durand MD; DASIA Faye ~* Signed PROCEDURE: ABDOMEN/PELVIS WITHOUT CONT 12/12/2024 REASON FOR EXAM: ABDOMINAL PAIN TECHNIQUE: Abdomen and pelvis CT without intravenous contrast. Noncontrast technique limits evaluation of the abdominal and pelvic viscera. Coronal and Sagittal reconstruction series were provided. One or more dose reduction techniques were used (e.g., Automated exposure control, adjustment of the mA and/or kV according to patient size, use of iterative reconstruction technique). PATIENT PREPARATION: Per protocol ORAL CONTRAST TYPE: None. COMPARISON: None FINDINGS: Lung bases: Moderate right pleural effusion and small left pleural effusion. Lungs are clear. Hiatal hernia is present. Liver: Liver, spleen, pancreas, adrenal glands and right kidney are unremarkable. 2 cysts from the left renal cortex appear simple, Bosniak 1, requiring no follow-up. Gallbladder: Several small gallstones are present. No evidence of inflammatory process involving the gallbladder. Bladder, prostate and seminal vesicles: Unremarkable. Bowel: Possible mural thickening in the cecum. Diverticulosis of the descendingand sigmoid colon. Appendix: Trace free fluid adjacent to the cecum. Periappendiceal inflammatory process is not seen,the appendix is not identified Lymph nodes: No lymph nodes that would be considered pathologic by size criteria Vasculature: densely calcified abdominal aorta with normal caliber Peritoneum / Retroperitoneum: Bones: CT/Abdomen/Pelvis without Cont IMPRESSION: OVERALL FINAL ASSESSMENT: . LI-RADS is not meant to be used in patients <18 years or patients with cirrhosisdue to congenital hepatic fibrosis or due to vascular disorders, because these patients have a lower chance of developing HCC. Reading Location[facility] CC: Dr. Rigoberto Durand MD; DASIA Faye ~ Vice President Sales And Marketing: Signed [facility]03-05-2025 History of Present illness Narrative* Ralph Roth MD - 09/22/2024 3:00 PM EST [facility] Telehealth Cardiology Note DATE of SERVICE: 09/22/24 TIME of SERVICE: 3:13 PM Chief Complaint: Chief Complaint Patient presents with 1 Year Follow-up History of Present Illness: Megan Nascimento is a 84 y.o. male called for routine follow-up. Did not come in because of subacute shingles or herpes zoster involving his left cheek, left ear, left forehead. His history includes Nonischemic cardiomyopathy, heart failure with reduced ejection fraction, status post cardiac resynchronization therapy and ICD. His left ventricular ejection fraction is about 35 to 40% Chronic kidney disease, glomerular filtration rate in the 20s as of December 2023. His local physician has done follow-up blood test and he tells me that its about the same. Pulmonary embolism, remote Gastrointestinal bleeding, resolved Cholecystitis, status post tube drainage. Interestingly, he says that he is most limited by arthralgias in his knees. He did put himself on coenzyme every 10 and is noted some improvement in some muscle aches. That is not a problem. He is having no shortness of breath or chest pain or palpitations or edema. He has been getting care througha local physician for his zoster and will be seeing him in follow-up on Friday of this week. I met him in February 2020 when he was in severe decompensated heart failure with a very low left ventricular ejection fraction. His initial left ventricular ejection fraction was about 10 to 20%. I was able to find his cardiac catheterization which was done April 21, 2019 which showed minimal luminal narrowing in the left main, minimal luminal narrowing in the LAD, 90% third diagonal lesion,minimal disease in the circumflex and a mid right coronary lesion that is 80% stenosed. At that time his ejection fraction was 35 to 40%. Participants on telehealth call: Megan Nascimento Past Medical History: Past Medical History: Diagnosis Date Acute HFrEF (heart failure with reduced ejection fraction) ([facility]) 09/22/2020 Bladder cancer ([facility]) CHF (congestive heart failure) ([facility]) Chronic HFrEF (heart failure with reduced ejection fraction) ([facility]) 09/21/2020 Chronic kidney disease DM (diabetes mellitus) ([facility]) DM (diabetes mellitus) ([facility]) DVT (deep venous thrombosis) ([facility]) ED (erectile dysfunction) Follicular non-Hodgkin's lymphoma ([facility]) GERD (gastroesophageal reflux disease) GERD (gastroesophageal reflux disease) HTN (hypertension) HTN (hypertension) Hyperlipidemia Left bundle branch block 09/11/2020 Non-ischemic cardiomyopathy (CMS/HCC) ([facility]) Presence of cardiac resynchronization therapy defibrillator (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) 01/17/2022 PUD (peptic ulcer disease) Pulmonary embolism ([facility]) Pulmonary fibrosis ([facility]) Rosacea Stage 3b chronic kidney disease ([facility]) 09/21/2020 Tachycardia Past Surgical History Past Surgical History: Procedure Laterality Date BONE MARROW BIOPSY CARDIAC PACEMAKER PLACEMENT COLONOSCOPY COLONOSCOPY COSMETIC SURGERY face lift, rhinoplasty EYE SURGERY cataract removal FACIAL COSMETIC SURGERY LYMPH NODE BIOPSY SEPTOPLASTY SKIN BIOPSY VENTRICULAR CARDIAC PACEMAKER INSERTION 09/11/2020 Bi-V ICD Family History Family History Problem Relation Name Age of Onset High Blood Pressure Father High Blood Pressure Mother Social History Social History Tobacco Use Smoking status: Former Current packs/day: 0.00 Types: Cigarettes Quit date: 11/08/1999 Years since quittin.8 Smokeless tobacco: Never Substance Use Topics Alcohol use: Yes Comment: occasionally Drug use: No Comment: caffeine:1-2 cups of coffee a day Allergies: Allergies Allergen Reactions Atorvastatin Other reaction(s): Myalgia Latanoprost Other reaction(s): Blurring of visual image, Excessive tear production, Red eye Lovastatin Other reaction(s): Myalgia Other Medications: Current Outpatient Medications: cholecalciferol (Vitamin D-3) 25 MCG (1000 UT) capsule, Take by mouth., Disp: , Rfl: cyanocobalamin (Vitamin B-12) 1000 MCG tablet, Take 1 tablet by mouth in the morning., Disp: , Rfl: ferrous sulfate 325 (65 Fe) MG tablet, Take 325 mg by mouth., Disp: , Rfl: gabapentin (Neurontin) 100 MG capsule, Take 100 mg by mouth., Disp: , Rfl: glimepiride (Amaryl) 1 MG tablet, Take 1 mg by mouth daily (with breakfast)., Disp: , Rfl: levothyroxine (Synthroid, Levoxyl) 25 MCG tablet, Take 25 mcg by mouth in the morning., Disp: , Rfl: metoprolol succinate XL (Toprol-XL) 100 MG 24 hr tablet, Take 100 mg by mouth in the morning., Disp: , Rfl: Multiple Vitamin (multivitamin) tablet, Take 1 tablet by mouth daily., Disp: , Rfl: pantoprazole (ProtoNix) 40 MG EC tablet, daily, Disp: , Rfl: rosuvastatin (Crestor) 20 MG tablet, Take 20 mg by mouth daily., Disp: , Rfl: sacubitril-valsartan (Entresto) 24-26 MG tablet, Take 1 tablet by mouth in the morning and 1 tabletbefore bedtime., Disp: 180 tablet, Rfl: 1 sertraline (Zoloft) 25 MG tablet, Take 25 mg by mouth in the morning., Disp: , Rfl: sucralfate (Carafate) 1 g tablet, Take 1 g by mouth., Disp: , Rfl: tadalafil (Cialis) 20 MG tablet, Take 1 tablet (20 mg) by mouth Daily as needed for erectile dysfunction., Disp: 10 tablet, Rfl: 0 tamsulosin (Flomax) 0.4 MG 24 hr capsule, Take 0.4 mg by mouth in the morning., Disp: , Rfl: torsemide (Demadex) 20 MG tablet, Take 1 tablet (20 mg) by mouth in the morning and 1 tablet (20 mg) in the evening., Disp: 180 tablet, Rfl: 3 Testosterone 20.25 MG/1.25GM (1.62%) gel, Place on the skin., Disp: , Rfl: Review of Systems: Review of Systems Constitutional: Negative for activity change, chills, diaphoresis, fatigue and fever. HENT: Negative for nosebleeds and trouble swallowing. Eyes: Negative for discharge and visual disturbance. Respiratory: Negative for apnea, cough, chest tightness, shortness of breath and wheezing. Cardiovascular: Negative for chest pain, palpitations and leg swelling. Gastrointestinal: Negative for abdominal distention, abdominal pain, blood in stool, diarrhea, nausea and vomiting. Endocrine: Negative for cold intolerance and heat intolerance. Genitourinary: Negative for hematuria. Musculoskeletal: Positive for arthralgias and gait problem. Negative for myalgias. Skin: Negative for color change and rash. Neurological: Negative for dizziness, seizures, syncope, facial asymmetry, speech difficulty, weakness, light-headedness, numbness and headaches. Hematological: Does not bruise/bleed easily. Psychiatric/Behavioral: Negative for dysphoric mood. Vital Signs (self reported) Failed to redirect to the Timeline version of the [facility]. Limited Telehealth exam Constitutional: [x]Alert []Oriented Appearance: []Healthy []Chronically ill []Acutely ill []Disheveled [x]NA (audio only) Medical Insight: []Good [x]Adequate []Limited []Poor Laboratory Tests: Lab Results Component Value Date WBC 9.4 01/09/2024 HGB 12.6 (L) 01/09/2024 HCT 38.0 (L) 01/09/2024 MCV 88.8 01/09/2024 PLT 258 01/09/2024 Lab Results Component Value Date GLUCOSE 137 (H) 01/09/2024 CALCIUM 9.5 01/09/2024 NA 136 06/05/2022 K 5.1 06/05/2022 CO2 25 01/09/2024 CL 96 (L) 06/05/2022 BUN 51 (H) 01/09/2024 CREATININE 2.34 (H) 01/09/2024 @LASTCMP@ Lab Results Component Value Date CHOL 166 05/14/2021 Lab Results Component Value Date TRIG 109 05/14/2021 Lab Results Component Value Date HDL 34 (L) 05/14/2021 No results found for: LDLCALC Cardiac Tests: ECG: Not able Last Echo: Estimated at 41%, visually estimated at 30 to 35% on echocardiogram February 2022 Last stress test: None Last cardiac catheterization: Mentioned No components found for: LVEF, LVEFMODE Assessment and Plan: @DIAGREFRESH@ My assessment is that his heart failure is compensated, basically asymptomatic. He is doing well. He is getting treatment for his herpes zoster. He is had no ICD shocks. His kidney function is poor but stable and amazingly well-tolerated. Diagnostically, sent no tests. Therapeutically, he will stay on his metoprolol succinate, rosuvastatin, sacubitril/valsartan and, torsemide for his heart failure and coronary disease. Educationally, reviewed all this with him. Will get him in for a [id number] visit in about 3 months. Patient was seen today via Telehealth by agreement and consent. I used the following Telehealth technology: Audio capability only. Total length of call 15 minutes minutes. The patient was offered andadvised video for a more comprehensive evaluation, but the patient declined or was unable to use video. Patient location: Patient Location: Home. This patient encounter is appropriate and reasonable under the circumstances: too sick to leave home . The patient has been advised of the potential risks and limitations of this mode of treatment (including but not limited to the absence of in-person examination) and has agreed to be treated in a remote fashion in spite of them. Any and all of thepatient's/patient's family's questions on this issue have been answered and I have made no promisesor guarantees to the patient. The patient has also been advised to contact this office for worsening conditions or problems, and seek emergency medical treatment and/or call 911 if the patient deems either necessary. The patient stated that they are currently in the state [facility]. If the patient dominick minor, permission has been obtained by the parent or guardian for the patient to receive medical care at this visit. documented in this [place] [id number] Telephone encounter Note* Telephone Encounter - Di Hernández RN - 07/28/2024 9:25 AM EST ----- Message from Gibson Lamb sent at 07/28/2024 8:57 AM EST ----- Regarding: RE: Clinic check Called and spoke with the patient regarding both appointments (dates/time) for 09-22-2024 at the [facility]. ----- Message ----- From: Di Hernández RN Sent: 07/28/2024 8:40 AM EST To: Gibson Moore CMA Subject: RE: Clinic check Thanks Gibson His remote is not due till October . I moved clinic to September 22 at 2:30pm. Before Dr. Roth. If you could let patient know. Thank you ----- Message ----- From: Gibson Moore CMA Sent: 07/28/2024 8:35 AM EST To: Di Hernández RN Subject: Clinic check Hello. Mr. Nascimento called this morning to R/S his in office device check appointment due to the weather, which was scheduled with you this morning. He was also seeing Dr. Roth. He R/S Brenda's appointment for early September 2024. Do you want him to just send a remote? And or I can R/S him with you at the [facility] on 08-04-2024 @ 10:30. [facility] [id number] Miscellaneous Notes* Telephone Encounter - Di Hernández RN - 07/28/2024 9:25 AM EST ----- Message from Gibson Lamb sent at 07/28/2024 8:57 AM EST ----- Regarding: RE: Clinic check Called and spoke with the patient regarding both appointments (dates/time) for 09-22-2024 at the [facility]. ----- Message ----- From: Di Hernández RN Sent: 07/28/2024 8:40 AM EST To: Gibson Moore CMA Subject: RE: Clinic check Thanks Gibson His remote is not due till October . I moved clinic to September 22 at 2:30pm. Before Dr. Roth. If you could let patient know. Thank you ----- Message ----- From: Gibson CHANDNI Moore Sent: 07/28/2024 8:35 AM EST To: Di Hernández RN Subject: Clinic check Marii. Mr. Nascimento called this morning to R/S his in office device check appointment due to the weather, which was scheduled with you this morning. He was also seeing Dr. Roth. He R/S Brenda's appointment for early September 2024. Do you want him to just send a remote? And or I can R/S him with you at the [facility] on 08-04-2024 @ 10:30. documented in this [facility]12-31-2024 Telephone encounter Note* Telephone Encounter - Bhargavi Pena RN - 07/20/2024 10:48 AM EST JAYMIE Renteria [employer] ENG[employer]-MARINE OILER 01/09/24, labs 01/09/24. Rx pended. [facility] [id number] Miscellaneous Notes* Telephone Encounter - Bhargavi Pena RN - 07/20/2024 10:48 AM EST JAYMIE Renteria [employer] ENGINEER-MARINE OILER 01/09/24, labs 01/09/24. Rx pended. documented in this [facility]11-27-2024 Telephone encounter Note* Telephone Encounter - Katie Glass RN - 06/16/2024 8:49 AM EST Last OV with Everton Renteria on 01/09/24 [place] [id number] Miscellaneous Notes* Telephone Encounter - Katie Glass RN - 06/16/2024 8:49 AM EST Last OV with Everton Renteria on 01/09/24 * Telephone Encounter - Shannan Mccartney - 06/15/2024 3:41 PM EST Patient called [facility] and wanted to see if he could fill his cialis through our pharmacy, He does nothave refills at [facility] pharmacy for this and It the last prescription that was sent to [facility] has[facility] refills on it. Patient requested that we ask the cardio provider that prescribed it last time for refills. If appropriate please send prescription to [facility] pharmacy, Rx pended for review, Thank you! documented in this encounterSK[facility] [id number] Telephone encounter Note* Telephone Encounter - Shannan Mccartney - 06/15/2024 3:41 PM EST Patient called [facility] and wanted to see if he could fill his cialis through our pharmacy, He does nothave refills at [facility] pharmacy for this and It the last prescription that was sent to [facility] hasno refills on it. Patient requested that we ask the cardio provider that prescribed it last time for refills. If appropriate please send prescription to [facility] pharmacy, Rx pended for review, Thank you! [place] [id number] Telephone encounter Note* Telephone Encounter - Katie Glass RN - 06/15/2024 12:14 PM EST Last OV with Everton Renteria on 01/09/24 BMP 01/09/24 [id number] Miscellaneous Notes* Telephone Encounter - Katie Glass RN - 06/15/2024 12:14 PM EST Last OV with Everton Renteria on 01/09/24 BMP 01/09/24 documented in this [facility]08-31-2024 Telephone encounter Note* Telephone Encounter - Ralph Roth MD - 03/20/2024 8:43 AM EDT There is very little difference between the vasodilators sildenafil and tadalafil. I will make the switch and discuss it with him at my next visit. [facility] [id number] Miscellaneous Notes* Telephone Encounter - Ralph Roth MD - 03/20/2024 8:43 AM EDT There is very little difference between the vasodilators sildenafil and tadalafil. I will make the switch and discuss it with him at my next visit. * Telephone Encounter - Shannan Mccartney - 03/19/2024 12:44 PM EDT [facility] spoke with patient today; he stated he would like his sildenafil changed to tadalafil. Sildenafil was last prescribed by Dr. Roth in December. I told the patient I would ask the office but I toldhim it was likely that the office would need to speak with him first since he would not tell me whyhe would like it switched. If therapy change appropriate please send prescription to [facility] pharmacy, Thank you so much! documented in this [facility]08-30-2024 Telephone encounter Note* Telephone Encounter - Shannan Mccartney - 03/19/2024 12:44 PM EDT [facility] spoke with patient today; he stated he would like his sildenafil changed to tadalafil. Sildenafil was last prescribed by Dr. Roth in December. I told the patient I would ask the office but I toldhim it was likely that the office would need to speak with him first since he would not tell me whyhe would like it switched. If therapy change appropriate please send prescription to [facility] pharmacy, Thank you so much! [facility] [id number] Telephone encounter Note* Telephone Encounter - Katie Glass RN - 03/18/2024 2:50 PM EDT Last OV with Everton Renteria on 01/09/24 BMP 01/09/24 [id number] Miscellaneous Notes* Telephone Encounter - Katie Glass RN - 03/18/2024 2:50 PM EDT Last OV with Everton Renteria on 01/09/24 BMP 01/09/24 * Telephone Encounter - Inna Kaur - 03/18/2024 12:25 PM EDT Refill requested. RX pended. Thanks! documented in this encounterSKettering Health [facility] So[facility] Medical [id number] Telephone encounter Note* Telephone Encounter - Inna Kaur - 03/18/2024 12:25 PM EDT Refill requested. RX pended. Thanks! [facility] [id number] History of Present illness Narrative* Petra Renteria, CHLOE - MARINE OILER - 01/09/2024 10:30 AM EDT Images from the original note were not included. [facility] Note DATE of SERVICE: 01/09/24 TIME of SERVICE: 11:53 AM Reason for Visit: Chief Complaint Patient presents with Follow-up History ofPresent Illness: Megan Nascimento is a 83 y.o. male who is known to Dr. Roth. He has a history of nonischemic cardiomyopathy, severe LV dysfunction, as low as 10 to 20%, he has had improvement of continue guideline directed therapy, most recent EF measured 41% per transthoracic echo February 2022. He has a 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 in place, monitored regularly by the device clinic with normal function. He has a history of stage IVchronic kidney disease, cholecystitis requiring percutaneous tube drainage, history of pulmonary embolism, GI bleed, and a tendency of chronic anemia. At his last office visit February 2023 he was recommended to remain off all blood thinners and antiplatelet agents. Today in office he states he is feeling well. He tells me he had a recent admission to [facility]. He tells me he had gone to his rug dyer, had toenails clipped, and then developed an infection in his foot requiring IV antibiotic therapy while admitted. I do not have records available, upontalking to him it does not appear he had decompensation in regards to his heart failure. He was then discharged to rehab for a few weeks, he has now been back home for about 2 weeks. He is getting along well, states he is almost completely recovered. He remains very well compensated. I have ordered a BMP and CBC to document stability. On his med list, he states while at rehab, he was given Aldactone and potassium supplementation which she is no longer taking. Aldactone and potassium are not typically on his medication list. I will await results. I advise he does not take potassium and Aldactone unless he has notified by our office. Blood pressure and heart rate are well-controlled. Past Medical History: Past Medical History: Diagnosis Date Acute HFrEF (heart failure with reduced ejection fraction) ([facility]) 09/22/2020 Bladder cancer ([facility]) CHF (congestive heart failure) ([facility]) Chronic HFrEF (heart failure with reduced ejection fraction) ([facility]) 09/21/2020 Chronic kidney disease DM (diabetes mellitus) ([facility]) DM (diabetes mellitus) ([facility]) DVT (deep venous thrombosis) ([facility]) ED (erectile dysfunction) Follicular non-Hodgkin's lymphoma ([facility]) GERD (gastroesophageal reflux disease) GERD (gastroesophageal reflux disease) HTN (hypertension) HTN (hypertension) Hyperlipidemia Left bundle branch block 09/11/2020 Non-ischemic cardiomyopathy (CMS/HCC) (HCC) Presence of cardiac resynchronization therapy defibrillator (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) 01/17/2022 PUD (peptic ulcer disease) Pulmonary embolism (HCC) Pulmonary fibrosis (HCC) Rosacea Stage 3b chronic kidney disease (HCC) 09/21/2020 Tachycardia Past Surgical History Past Surgical History: Procedure Laterality Date BONE MARROW BIOPSY CARDIAC PACEMAKER PLACEMENT COLONOSCOPY COLONOSCOPY COSMETIC SURGERY face lift, rhinoplasty EYE SURGERY cataract removal FACIAL COSMETIC SURGERY LYMPH NODE BIOPSY SEPTOPLASTY SKIN BIOPSY VENTRICULAR CARDIAC PACEMAKER INSERTION 09/11/2020 Bi-V ICD Family History Family History Problem Relation Name Age of Onset High Blood Pressure Father High Blood Pressure Mother Social History Social History Tobacco Use Smoking status: Former Current packs/day: 0.00 Types: Cigarettes Quit date: 11/08/1999 Years since quittin.1 Smokeless tobacco: Never Substance Use Topics Alcohol use: Yes Comment: occasionally Drug use: No Comment: caffeine:1-2 cups of coffee a day Allergies: Allergies Allergen Reactions Atorvastatin Other reaction(s): Myalgia Latanoprost Other reaction(s): Blurring of visual image, Excessive tear production, Red eye Lovastatin Other reaction(s): Myalgia Other Medications: Current Outpatient Medications: cholecalciferol (Vitamin D-3) 25 MCG (1000 UT) capsule, Take by mouth., Disp: , Rfl: cyanocobalamin (Vitamin B-12) 1000 MCG tablet, Take 1 tablet by mouth in the morning., Disp: , Rfl: ferrous sulfate 325 (65 Fe) MG tablet, Take 325 mg by mouth., Disp: , Rfl: gabapentin (Neurontin) 100 MG capsule, Take 100 mg by mouth., Disp: , Rfl: glimepiride (Amaryl) 1 MG tablet, Take 1 mg by mouth daily (with breakfast)., Disp: , Rfl: levothyroxine (Synthroid, Levoxyl) 25 MCG tablet, Take 25 mcg by mouth in the morning., Disp: , Rfl: metoprolol succinate XL (Toprol-XL) 100 MG 24 hr tablet, Take 100 mg by mouth in the morning., Disp: , Rfl: Multiple Vitamin (multivitamin) tablet, Take 1 tablet by mouth daily., Disp: , Rfl: pantoprazole (ProtoNix) 40 MG EC tablet, daily, Disp: , Rfl: sacubitril-valsartan (Entresto) 24-26 MG tablet, Take 1 tablet by mouth in the morning and 1 tabletbefore bedtime., Disp: 180 tablet, Rfl: 1 sertraline (Zoloft) 25 MG tablet, Take 25 mg by mouth in the morning., Disp: , Rfl: sildenafil (Viagra) 100 MG tablet, Take 1 tablet by mouth if needed., Disp: , Rfl: sucralfate (Carafate) 1 g tablet, Take 1 g by mouth., Disp: , Rfl: tamsulosin (Flomax) 0.4 MG 24 hr capsule, Take 0.4 mg by mouth in the morning., Disp: , Rfl: Testosterone 20.25 MG/1.25GM (1.62%) gel, Place on the skin., Disp: , Rfl: torsemide (Demadex) 20 MG tablet, Take 20 mg by mouth in the morning and 20 mg in the evening., Disp: , Rfl: rosuvastatin (Crestor) 20 MG tablet, Take 20 mg by mouth daily., Disp: , Rfl: Review of Systems: Review of Systems Constitutional: Negative for activity change, chills, diaphoresis, fatigue and fever. Pt states feeling well HENT: Negative for nosebleeds and trouble swallowing. Eyes: Negative for discharge and visual disturbance. Respiratory: Negative for apnea, cough, chest tightness, shortness of breath and wheezing. Denies SOB Cardiovascular: Negative for chest pain, palpitations and leg swelling. Denies chest pain or palpitations Gastrointestinal: Negative for abdominal distention, abdominal pain, blood in stool, diarrhea, nausea and vomiting. Endocrine: Negative for cold intolerance and heat intolerance. Genitourinary: Negative for hematuria. Musculoskeletal: Negative for gait problem and myalgias. Skin: Negative for color change and rash. Neurological: Negative for dizziness, seizures, syncope, facial asymmetry, speech difficulty, weakness, light-headedness, numbness and headaches. Denies dizziness or light headedness Hematological: Does not bruise/bleed easily. Psychiatric/Behavioral: Negative for dysphoric mood. Physical Examination: Vitals: BP 120/78 (BP Location: Left arm, Patient Position: Sitting, BP Cuff Size: Adult) Pulse 88 Ht 5' 7 (1.702 m) Wt 179 lb (81.2 kg) SpO2 97% BMI 28.04 kg/m Body mass index is 28.04 kg/m . Physical Exam Constitutional: Appearance: Normal appearance. Comments: Well compensated HENT: Head: Normocephalic. Eyes: General: Right eye: No discharge. Left eye: No discharge. Neck: Comments: No JVD Cardiovascular: Rate and Rhythm: Normal rate and regular rhythm. Heart sounds: No murmur heard. Comments: Regular, rate controlled Pulmonary: Effort: Pulmonary effort is normal. Breath sounds: Normal breath sounds. No wheezing or rales. Comments: Clear t/o Abdominal: General: Bowel sounds are normal. There is no distension. Palpations: Abdomen is soft. Musculoskeletal: Cervical back: Neck supple. Right lower leg: No edema. Left lower leg: No edema. Comments: BLE are nonedematous Skin: General: Skin is warm. Findings: No erythema or rash. Neurological: Mental Status: He is alert and oriented to person, place, and time. Psychiatric: Behavior: Behavior normal. Laboratory Tests: Lab Results Component Value Date GLUCOSE 230 (H) 09/10/2022 CALCIUM 9.4 09/10/2022 NA 136 06/05/2022 K 5.1 06/05/2022 CO2 28 09/10/2022 CL 96 (L) 06/05/2022 BUN 39 (H) 09/10/2022 CREATININE 2.65 (H) 09/10/2022 @LASTCMP@ Lab Results Component Value Date CHOL 166 05/14/2021 Lab Results Component Value Date TRIG 109 05/14/2021 Lab Results Component Value Date HDL 34 (L) 05/14/2021 No results found for: LDLCALC No results found for: VLDL Lab Results Component Value Date CHOLHDLRATIO 5 05/14/2021 Other Testing: Cardiac Tests: Echo (date: 03/20/2022): SUMMARY: 1. Left ventricle: Systolic function is moderately decreased by the biplane method of disks. The estimated ejection fraction is 41%. However visually it seems to be lower more in the range of 30-35%. Features are consistent with a pseudonormal left ventricular filling pattern, with concomitant abnormal relaxation and increased filling pressure (grade 2 diastolic dysfunction). 2. Right ventricle: The cavity size is mildly dilated. Pacer wire noted in the right ventricle. Systolic function is normal. Right ventricular systolic pressure is at the upper limits of normal. The RV pressure during systole by Doppler is 34 mm Hg. 3. Aortic valve: There is mild-moderate, 1-2+ regurgitation. Assessment and Plan: 1. Nonischemic cardiomyopathy with improved EF-last measured 41% per transthoracic echo February 2022-has remained well compensated -Will continue present guideline directed therapy including Toprol-XL 100 mg daily, Entresto 24/26 mg twice daily. He also utilizes Demadex 20 mg twice daily. -I recommended he remain off Aldactone and potassium. I will await results of his BMP and CBC before giving any additional recommendations. -He is presently [place] [employer] functional class II, stage C. 2. 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 D device in place, monitored regularly by the device clinic with normal function 3. History of stage IV chronic kidney disease-followed regularly by his primary care physician and nephrology 4. Prior history of pulmonary embolism-no recent recurrence. At his last office visit February 2023 he was recommended to remain off all blood thinners and antiplatelet agents due to a history of GI bleed and chronic anemia 5. Follow-up-6 months and as needed. Of course we are always available urgent or expedient basis. Petra Renteria APRN/MARIIA documented in this [facility]2024 Telephone encounter Note* Telephone Encounter - Coby Martínez RN - 12/22/2023 3:58 PM EDT OV 03/12/23 [facility] [id number] Miscellaneous Notes* Telephone Encounter - Coby Martínez RN - 12/22/2023 3:58 PM EDT OV 03/12/23 documented in this [facility]05-31-2024 Telephone encounter Note* Telephone Encounter - Dania Mcknight RN - 12/19/2023 1:52 PM EDT RBC 03/12/23 Results Test Name Value Interpretation Reference Range Facility Basic Metabolic Profile (BMP) on 12-02-2023 BUN/CRE 16.8 RATIO Normal 10-20 [facility] Comment on above: Performed By: #### L501.080 #### [facility] [address] [place], [address] CA,Total 8.7 mg/dL Normal 8.5-10.1 [facility] Comment on above: Performed By: #### L501.080 #### [facility] [address] [place], [address] Chloride [Moles/Vol] 111 mmol/L High 98-107 [facility] Comment on above: Performed By: #### L501.080 #### [facility] [address] [place], [address] CO2 [Moles/Vol] 26.0 mmol/L Normal 21.0-32.0 [facility] Comment on above: Performed By: #### L501.080 #### [facility] [address] [place], [address] Creatinine [Mass/Vol] 2.32 mg/dL High 0.70-1.30 [facility] Comment on above: Result Comment: The validity of the calculated GFR GFRAA in patients over 70 years has not been determined. Clinical correlation is essential. Performed By: #### L501.080 #### [facility] [address] [place], [address] ECRCL 25.36 ml/min Normal [facility] Comment on above: Performed By: #### L501.080 #### [facility] [address] [place], [address] EST GFR - AA 35 mL/min Low >60 [facility] Comment on above: Result Comment: GFR Calc Performed By: #### L501.080 #### [facility] [address] [place], [address] GAP 4 Low 5-15 [facility] Comment on above: Performed By: #### L501.080 #### [facility] [address] [place], [address] GFR/1.73 sq M.predicted among non-blacks MDRD (S/P/Bld) [Vol rate/Area] 29 mL/min/ Low >60 [facility] Comment on above: Result Comment: Non- GFR Calc Performed By: #### L501.080 #### [facility] [address] [place], [address] Glucose [Mass/Vol] 56 mg/dL Low 74-106 [facility] Comment on above: Performed By: #### L501.080 #### [facility] [address] [place], [address] Potassium [Moles/Vol] 3.9 mmol/L Normal 3.5-5.1 [facility] Comment on above: Performed By: #### L501.080 #### [facility] [address] [place], [address] Sodium [Moles/Vol] 141 mmol/L Normal 136-145 [facility] Comment on above: Performed By: #### L501.080 #### [facility] [address] [place], [address] Urea nitrogen [Mass/Vol] 39 mg/dL High 7-18 [facility] Comment on above: Performed By: #### [id number] #### [facility] [address] [place], [address] [facility] [id number] Miscellaneous Notes* Telephone Encounter - Dania Mcknight RN - 12/19/2023 1:52 PM EDT RBC 03/12/23 Results Test Name Value Interpretation Reference Range Facility Basic Metabolic Profile (BMP) on 12-02-2023 BUN/CRE 16.8 RATIO Normal 10-20 [facility] Comment on above: Performed By: #### L501.080 #### [facility] [address] [place], [address] CA,Total 8.7 mg/dL Normal 8.5-10.1 [facility] Comment on above: Performed By: #### [id number] #### [facility] [address] [place], [address] Chloride [Moles/Vol] 111 mmol/L High 98-107 [facility] Comment on above: Performed By: #### [id number] #### [facility] [address] [place], [address] CO2 [Moles/Vol] 26.0 mmol/L Normal 21.0-32.0 [facility] Comment on above: Performed By: #### L501.080 #### [facility] [address] [place], [address] Creatinine [Mass/Vol] 2.32 mg/dL High 0.70-1.30 [facility] Comment on above: Result Comment: The validity of the calculated GFR GFRAA in patients over 70 years has not been determined. Clinical correlation is essential. Performed By: #### [id number] #### [facility] [address] [place], [address] ECRCL 25.36 ml/min Normal [facility] Comment on above: Performed By: #### [id number] #### [facility] [address] [place], [address] EST GFR - AA 35 mL/min Low >60 [facility] Comment on above: Result Comment: GFR Calc Performed By: #### [id number] #### [facility] [address] [place], [address] GAP 4 Low 5-15 [facility] Comment on above: Performed By: #### [id number] #### [facility] [address] [place], [address] GFR/1.73 sq M.predicted among non-blacks MDRD (S/P/Bld) [Vol rate/Area] 29 mL/min/ Low >60 [facility] Comment on above: Result Comment: Non- GFR Calc Performed By: #### [id number] #### [facility] [address] [place], [address] Glucose [Mass/Vol] 56 mg/dL Low 74-106 [facility] Comment on above: Performed By: #### [id number] #### [facility] [address] [place], [address] Potassium [Moles/Vol] 3.9 mmol/L Normal 3.5-5.1 [facility] [facility] Comment on above: Performed By: #### L501.080 #### [facility] [address] [place], [address] Sodium [Moles/Vol] 141 mmol/L Normal 136-145 [facility] Comment on above: Performed By: #### L501.080 #### [facility] [address] [place], [address] Urea nitrogen [Mass/Vol] 39 mg/dL High 7-18 [facility] Comment on above: Performed By: #### L501.080 #### [facility] [address] [place], [address] documented in this [facility]11-22-2023 Telephone encounter Note* Telephone Encounter - Dania Mcknight RN - 06/11/2023 3:30 PM EST PC to patient. LMOM with OSCAR recommendations. I asked for a call back to further discuss. [facility] [id number] Miscellaneous Notes* Telephone Encounter - Dania Mcknight RN - 06/11/2023 3:30 PM EST PC to patient. LMOM with OSCAR recommendations. I asked for a call back to further discuss. * Telephone Encounter - Dania Mcknight RN - 06/11/2023 2:35 PM EST RBC 03/12/23 BMP 09/10/22 documented in this encounterSKettering [facility] Medical [id number] Telephone encounter Note* Telephone Encounter - Dania Mcknight RN - 06/11/2023 2:35 PM EST RBC 03/12/23 BMP 09/10/22 [facility] [id number] Miscellaneous Notes* Telephone Encounter - Anali Moore - 05/12/2023 2:49 PM EDT Not our pt please refuse and close. Anali Moore documented in this encounterMary [facility] History of Present illness Narrative* Ralph Roth MD - 03/12/2023 9:00 AM EDT Images from the original note were not included. [facility] [address] [facility] [address] Dept: [phone] Dept Loc: [phone] DATE of SERVICE:03/12/23 TIME of SERVICE: 8:47 AM : 1940 Chief Complaint: Chief Complaint Patient presents with 6 Month Follow-up History of PresentIllness: Megan Nascimento is a 82 y.o. male here for routine follow-up. He has a history of heart failure with reduced ejection fraction, cardiac resynchronization therapy, stage IV chronic kidney disease, cholecystitis requiring percutaneous tube drainage, history of pulmonary embolism, gastrointestinal bleed and a tendency to chronic anemia. His cardiomyopathy is nonischemic. His left ventricular ejection fractions were as low as 10 to 20%. However, with time and guideline directed therapy his left ventricular function has improved. The cardiac resynchronization therapy probably helped as well. His last left ventricular ejection fraction was somewhere between 30 and 40%. Remarkably, he comes in today asymptomatic from a cardiovascular point of view. He has no edema or chest pain or shortness of breath. He is limited mostly by orthopedic problems, right shoulder, leftknee, and back. He was asking what was safe for him to use from a pain point of view. He has had noICD shocks. The last filtration rate that I have was 23, creatinine 2.6, BUN 39, hemoglobin 12.0, pl atelets 290. He says he has had blood test done more recently. He was off rosuvastatin because of some myalgias but is back on it now, trying to take it again. Past Medical History: Past Medical History: Diagnosis Date Acute HFrEF (heart failure with reduced ejection fraction) (CMS/HCC) ([facility]) 09/22/2020 Bladder cancer (HCC) CHF (congestive heart failure) (CMS/HCC) ([facility]) Chronic HFrEF (heart failure with reduced ejection fraction) (CMS/HCC) ([facility]) 09/21/2020 Chronic kidney disease DM (diabetes mellitus) (HCC) DM (diabetes mellitus) ([facility]) DVT (deep venous thrombosis) ([facility]) ED (erectile dysfunction) Follicular non-Hodgkin's lymphoma (HCC) GERD (gastroesophageal reflux disease) GERD (gastroesophageal reflux disease) HTN (hypertension) HTN (hypertension) Hyperlipidemia Left bundle branch block 09/11/2020 Non-ischemic cardiomyopathy (CMS/HCC) (HCC) Presence of cardiac resynchronization therapy defibrillator (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) 01/17/2022 PUD (peptic ulcer disease) Pulmonary embolism (HCC) Pulmonary fibrosis (HCC) Rosacea Stage 3b chronic kidney disease (HCC) 09/21/2020 Tachycardia Past Surgical History Past Surgical History: Procedure Laterality Date BONE MARROW BIOPSY CARDIAC PACEMAKER PLACEMENT COLONOSCOPY COLONOSCOPY COSMETIC SURGERY face lift, rhinoplasty EYE SURGERY cataract removal FACIAL COSMETIC SURGERY LYMPH NODE BIOPSY SEPTOPLASTY SKIN BIOPSY VENTRICULAR CARDIAC PACEMAKER INSERTION 09/11/2020 Bi-V ICD Family History Family History Problem Relation Name Age of Onset High Blood Pressure Father High Blood Pressure Mother Social History Social History Tobacco Use Smoking status: Former Packs/day: 1.00 Types: Cigarettes Quit date: 11/08/1999 Years since quittin.3 Smokeless tobacco: Never Substance Use Topics Alcohol use: Yes Comment: soc Drug use: No Allergies: Allergies Allergen Reactions Atorvastatin Other reaction(s): Myalgia Latanoprost Other reaction(s): Blurring of visual image, Excessive tear production, Red eye Lovastatin Other reaction(s): Myalgia Other Medications: Current Outpatient Medications: cholecalciferol (Vitamin D-3) 25 MCG (1000 UT) capsule, Take by mouth., Disp: , Rfl: cyanocobalamin (Vitamin B-12) 1000 MCG tablet, Take 1 tablet by mouth in the morning., Disp: , Rfl: ferrous sulfate 325 (65 Fe) MG tablet, Take 325 mg by mouth., Disp: , Rfl: gabapentin (Neurontin) 100 MG capsule, Take 100 mg by mouth., Disp: , Rfl: levothyroxine (Synthroid, Levoxyl) 25 MCG tablet, Take 25 mcg by mouth in the morning., Disp: , Rfl: metoprolol succinate XL (Toprol-XL) 100 MG 24 hr tablet, Take 100 mg by mouth in the morning., Disp: , Rfl: Multiple Vitamin (multivitamin) tablet, Take 1 tablet by mouth daily., Disp: , Rfl: pantoprazole (ProtoNix) 40 MG EC tablet, daily, Disp: , Rfl: rosuvastatin (Crestor) 20 MG tablet, Take 20 mg by mouth daily., Disp: , Rfl: sacubitril-valsartan (Entresto) 24-26 MG tablet, Take 1 tablet by mouth in the morning and 1 tabletbefore bedtime., Disp: 180 tablet, Rfl: 3 sertraline (Zoloft) 25 MG tablet, Take 25 mg by mouth in the morning., Disp: , Rfl: sildenafil (Viagra) 100 MG tablet, Take 1 tablet by mouth if needed., Disp: , Rfl: sildenafil (Viagra) 100 MG tablet, TAKE 1 TABLET BY MOUTH NEEDED FOR ERECTILE DYSFUNCTION, Disp:10 tablet, Rfl: 5 sucralfate (Carafate) 1 g tablet, Take 1 g by mouth., Disp: , Rfl: tamsulosin (Flomax) 0.4 MG 24 hr capsule, Take 0.4 mg by mouth in the morning., Disp: , Rfl: torsemide (Demadex) 100 MG tablet, TAKE 1 TABLET BY MOUTH 2 TIMES DAILY, Disp: 180 tablet, Rfl: 3 Testosterone 20.25 MG/1.25GM (1.62%) gel, Place on the skin., Disp: , Rfl: Review of Systems: Review of Systems Constitutional: Negative for activity change, chills, diaphoresis, fatigue and fever. HENT: Negative for nosebleeds and trouble swallowing. Eyes: Negative for discharge and visual disturbance. Respiratory: Negative for apnea, cough, chest tightness, shortness of breath and wheezing. Cardiovascular: Negative for chest pain, palpitations and leg swelling. Gastrointestinal: Negative for abdominal distention, abdominal pain, blood in stool, diarrhea, nausea and vomiting. Endocrine: Negative for cold intolerance and heat intolerance. Genitourinary: Negative for hematuria. Musculoskeletal: Positive for arthralgias and gait problem. Negative for myalgias. Skin: Negative for color change and rash. Neurological: Negative for dizziness, seizures, syncope, facial asymmetry, speech difficulty, weakness, light-headedness, numbness and headaches. Hematological: Does not bruise/bleed easily. Psychiatric/Behavioral: Negative for dysphoric mood. Physical Examination: Vitals: Vitals: 03/12/23 0832 BP: 120/76 BP Location: Left arm Patient Position: Sitting BP Cuff Size: Large adult Pulse: 77 Resp: 16 SpO2: 96% Weight: 183 lb (83 kg) Height: 5' 7 (1.702 m) Body mass index is 28.66 kg/m . Physical Exam He appears well. I have never seen him look this good. His neck veins are normal, lungs clear, heart sounds normal, abdomen soft palpable liver edge. He has trivial pretibial edema. Laboratory Tests: Lab Results Component Value Date WBC 9.6 09/10/2022 HGB 12.0 (L) 09/10/2022 HCT 35.6 (L) 09/10/2022 MCV 89.9 09/10/2022 PLT 290 09/10/2022 Lab Results Component Value Date GLUCOSE 230 (H) 09/10/2022 CALCIUM 9.4 09/10/2022 NA 136 06/05/2022 K 5.1 06/05/2022 CO2 28 09/10/2022 CL 96 (L) 06/05/2022 BUN 39 (H) 09/10/2022 CREATININE 2.65 (H) 09/10/2022 @LASTCMP@ Lab Results Component Value Date CHOL 166 05/14/2021 Lab Results Component Value Date TRIG 109 05/14/2021 Lab Results Component Value Date HDL 34 (L) 05/14/2021 No results found for: LDLCALC, LDLDIRECT No components found for: LVEF, LVEFMODE Focused cardiac ultrasound shows no dyssynchrony, visually estimated left ventricular ejection fraction 35 to 40%, mild aortic regurgitation and no mitral regurgitation. Assessment and Plan: @DIAGREFRESH@ Medical decision making His heart failure is compensated, I would estimate [place] Heart Association class II, stage C, warm and dry clinically. He has had no symptoms of recurrent pulmonary embolism. We have struggled in the past with significant gastrointestinal bleeding and anemia. Given how well he is doing and the lack of coronary disease, I think I will avoid any antiplatelet or anticoagulant therapy. Currently, my biggest concern is his chronic kidney disease. We need to avoid anything that would lower his glomerular filtration rate because that could precipitate the need for renal replacement. His arthralgias are chronic, over a year in duration. We need to be careful to avoid any pain medicine that mightcause some decompensation, particularly anemia or renal dysfunction. Diagnostically, sent no test. He has had recent blood test. Therapeutically, I told him he could use acetaminophen, glucosamine/chondroitin, and topical Voltaren for pain. I also told him that some people do get relief of pain from home care manager rn or acupuncture. If he wants to pursue those, thatis reasonable. We need to avoid opioids and NSAIDs. Educationally, reviewed all this with him and we will see him back in 6 months with one of our nurse practitioners or physician assistants and withme in a year. documented in this encounterSKettering Health – Soin Medical [id number] Miscellaneous Notes* Telephone Encounter - Brinda Bourne APRN.CNP - 03/10/2023 10:19 AM EDT I do not know this patient. Perhaps refill was for PCP Dr. Estevez? Brinda Ravi. CHLOE Bourne.MARIIA * Telephone Encounter - Anali Moore - 03/10/2023 9:29 AM EDT Jaymie None at this time Nov None at this time Pharmacy electronically requesting refills as follows: Requested Prescriptions Pending Prescriptions Disp Refills sucralfate (CARAFATE) 1 gram tablet [Pharmacy Med Name: SUCRALFATE 1 GM TABLET] 180 tablet Sig: take 1 tablet by mouth twice a day Please review and advise. Anali Moore documented in this encounterMary [facility]08-16-2023 Telephone encounter Note * Telephone Encounter - Dania Mcknight RN - 03/05/2023 11:52 AM EDT PC to patient. He states he just had labs drawn through PCP office. PCP would like him to restart statin. Labs below. Could not calculate LDL as Triglycerides over 500. Patient confirms he was fasting for labs. PCP would like him to start rosuvastatin 10 mg instead of 5 mg. Symptoms did not improveoff statin. I told patient ok to resume per PCP receommendations and will FYI RBC. Reminded him of appt next week. He verbalized understanding. Lipid Profile on 03-04-2023 Cholesterol [Mass/Vol] 287 mg/dL High 200 [facility] Comment on above: Result Comment: <200 mg/dL Desirable 200-240 mg/dL Borderline >240 mg/dL High Risk Performed By: #### L500.2500, L500.4100 #### [facility] [address] [place], [address] Cholesterol in HDL [Mass/Vol] 27 mg/dL Low [facility] Comment on above: Result Comment: The drugs N-Acetylcysteine and Metamizole may falsely depress this assay. Reference Range HDL <40 mg/dL Low HDL Cholesterol HDL >or= 60 mg/dL High HDL Cholesterol Performed By: #### L500.2500, L500.4100 #### [facility] [address] [place], [address] LDL TNP Normal 0-130 [facility] Comment on above: Performed By: #### L500.2500, L500.4100 #### [facility] [address] [place], [address] Triglyceride [Mass/Vol] 576 mg/dL High [facility] Comment on above: Result Comment: The drugs N-Acetylcysteine and Metamizole may falsely depress this assay. TRIGLYCERIDE IS GREATER THAN 400 mg/dL. LDL RESULT IS INVALID AND WILL NOT BE REPORTED. Serum Triglycerides Reference Interval Normal <150 mg/dL Borderline high 150 - 199 mg/dL High 200 - 499 mg/dL Very High > or = 500 mg/dL Performed By: #### L500.2500, L500.4100 #### [facility] [address] [place], [address] VLDL TNP Normal 5-40 [facility] Comment on above: Performed By: #### L500.2500, L500.4100 #### [facility] [address] [place], [address] [facility] [id number] Miscellaneous Notes* Telephone Encounter - Dania Mcknight RN - 03/05/2023 11:52 AM EDT PC to patient. He states he just had labs drawn through PCP office. PCP would like him to restart statin. Labs below. Could not calculate LDL as Triglycerides over 500. Patient confirms he was fasting for labs. PCP would like him to start rosuvastatin 10 mg instead of 5 mg. Symptoms did not improveoff statin. I told patient ok to resume per PCP receommendations and will FYI RBC. Reminded him of appt next week. He verbalized understanding. Lipid Profile on 03-04-2023 Cholesterol [Mass/Vol] 287 mg/dL High 200 [facility] Comment on above: Result Comment: <200 mg/dL Desirable 200-240 mg/dL Borderline >240 mg/dL High Risk Performed By: #### L500.2500, L500.4100 #### [facility] [address] [place], [address] Cholesterol in HDL [Mass/Vol] 27 mg/dL Low [facility] Comment on above: Result Comment: The drugs N-Acetylcysteine and Metamizole may falsely depress this assay. Reference Range HDL <40 mg/dL Low HDL Cholesterol HDL >or= 60 mg/dL High HDL Cholesterol Performed By: #### L500.2500, L500.4100 #### [facility] [address] [place], [address] LDL TNP Normal 0-130 [facility] Comment on above: Performed By: #### L500.2500, L500.4100 #### [facility] [address] [place], [address] Triglyceride [Mass/Vol] 576 mg/dL High [facility] Comment on above: Result Comment: The drugs N-Acetylcysteine and Metamizole may falsely depress this assay. TRIGLYCERIDE IS GREATER THAN 400 mg/dL. LDL RESULT IS INVALID AND WILL NOT BE REPORTED. Serum Triglycerides Reference Interval Normal <150 mg/dL Borderline high 150 - 199 mg/dL High 200 - 499 mg/dL Very High > or = 500 mg/dL Performed By: #### L500.2500, L500.4100 #### [facility] [address] [place], [address] VLDL TNP Normal 5-40 [facility] Comment on above: Performed By: #### L500.2500, L500.4100 #### [facility] [address] [place], [address] * Telephone Encounter - Marley Kc - 03/05/2023 11:39 AM EDT PT has questions regarding restarting Rosuvastatin * Telephone Encounter - Dania Mcknight RN - 08/23/2022 1:23 PM EST Images from the original note were not included. Ralph Roth MD You 18 hours ago (7:14 PM) RC Please give trial off statin, thank you; till next visit PC to patient. Reviewed recommendations. He would like me to call back and leave a VM with recommendations. I will do so. He verbalized understanding. I called and LM on VM with recommendations and reminder about f/u appt 09/10. * Telephone Encounter - Dania Mcknight RN - 08/22/2022 9:24 AM EST PC to pt. He has been taking spironolactone but he will stop taking. He called in the end of June asking if any of his medications could be causing leg weakness. He did not return calls to the office. I asked if he still had questions about this and he said yes. He states he rolled out out bed and cracked a disc in his back. He is currently undergoing steroid injections through pain management. He is currently using a walker but trying to build up his strength without one. He states he is having myalgias possibly related to his statin. He also describes aches as maybe sciatic pain. Will D/W RBC about trial off statin. * Telephone Encounter - Ralph Roth MD - 08/21/2022 7:02 PM EST Please call and see if he is still on spironolactone. If he is, please have him stop it, thank you documented in this [facility]08-16-2023 Telephone encounter Note* Telephone Encounter - Marley Kc - 03/05/2023 11:39 AM EDT PT has questions regarding restarting Rosuvastatin [facility] [id number] History of Present illness Narrative* Petra Renteria APRN - MARIIA - 09/10/2022 9:00 AM EST Images from the original note were not included. [facility] Office Note DATE of SERVICE: 09/10/22 TIME of SERVICE: 9:42 AM Reason for Visit: Chief Complaint Patient presents with Congestive Heart Failure History ofPresent Illness: Megan Nascimento is a 82 y.o. male who is known to Dr. Roth. He has a history of heart failure with reduced ejection fraction in the setting of nonischemic cardiomyopathy, his EF has been as low as 10 to 20%, he underwent cardiac resynchronization therapy, most recent EF measured 41%, visually 30 to 35% per echo February 2022. From a heart failure standpoint, he is remained stable. He is in goodspirits today, and remains well compensated. He follows regularly with the device clinic, with normal function. His main limiting symptoms presently are due to chronic back pain. He tells me that he is to start undergoing massage and is optimistic that it will help with his chronic sciatic back pain. He is very cognizant of his daily weights which have remained stable, he continues on twice daily Demadex. Since his last office visit rosuvastatin 5 mg daily was discontinued due to proposed side effects of leg weakness, Aldactone is also been discontinued due to renal dysfunction. He has known history of stage IV chronic kidney disease. I have ordered a repeat BMP and CBC today to document stability. Past Medical History: Past Medical History: Diagnosis Date Acute HFrEF (heart failure with reduced ejection fraction) (CMS/HCC) ([facility]) 09/22/2020 Bladder cancer (CMS/HCC) ([facility]) CHF (congestive heart failure) (CMS/HCC) ([facility]) Chronic HFrEF (heart failure with reduced ejection fraction) (CMS/HCC) ([facility]) 09/21/2020 Chronic kidney disease DM (diabetes mellitus) ([facility]) DM (diabetes mellitus) ([facility]) DVT (deep venous thrombosis) ([facility]) ED (erectile dysfunction) Follicular non-Hodgkin's lymphoma (CMS/HCC) ([facility]) GERD (gastroesophageal reflux disease) GERD (gastroesophageal reflux disease) HTN (hypertension) HTN (hypertension) Hyperlipidemia Left bundle branch block 09/11/2020 Non-ischemic cardiomyopathy (CMS/HCC) ([facility]) Presence of cardiac resynchronization therapy defibrillator (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) 01/17/2022 PUD (peptic ulcer disease) Pulmonary embolism ([facility]) Pulmonary fibrosis ([facility]) Rosacea Stage 3b chronic kidney disease ([facility]) 09/21/2020 Tachycardia Past Surgical History Past Surgical History: Procedure Laterality Date BONE MARROW BIOPSY CARDIAC PACEMAKER PLACEMENT COLONOSCOPY COLONOSCOPY COSMETIC SURGERY face lift, rhinoplasty EYE SURGERY cataract removal FACIAL COSMETIC SURGERY LYMPH NODE BIOPSY SEPTOPLASTY SKIN BIOPSY VENTRICULAR CARDIAC PACEMAKER INSERTION 09/11/2020 Bi-V ICD Family History Family History Problem Relation Name Age of Onset High Blood Pressure Father High Blood Pressure Mother Social History Social History Tobacco Use Smoking status: Former Packs/day: 1.00 Types: Cigarettes Quit date: 11/08/1999 Years since quittin.8 Smokeless tobacco: Never Substance Use Topics Alcohol use: Yes Comment: soc Drug use: No Allergies: Allergies Allergen Reactions Other Medications: Current Outpatient Medications: cholecalciferol (Vitamin D-3) 25 MCG (1000 UT) capsule, Take by mouth., Disp: , Rfl: cyanocobalamin (Vitamin B-12) 1000 MCG tablet, Take 1 tablet by mouth in the morning., Disp: , Rfl: ferrous sulfate 325 (65 Fe) MG tablet, Take 325 mg by mouth., Disp: , Rfl: gabapentin (Neurontin) 100 MG capsule, Take 100 mg by mouth., Disp: , Rfl: levothyroxine (Synthroid, Levoxyl) 25 MCG tablet, Take 25 mcg by mouth in the morning., Disp: , Rfl: metoprolol succinate XL (Toprol-XL) 100 MG 24 hr tablet, Take 100 mg by mouth in the morning., Disp: , Rfl: pantoprazole (ProtoNix) 40 MG EC tablet, daily, Disp: , Rfl: sacubitril-valsartan (Entresto) 24-26 MG tablet, Take 1 tablet by mouth in the morning and 1 tabletbefore bedtime., Disp: 180 tablet, Rfl: 3 sertraline (Zoloft) 25 MG tablet, Take 25 mg by mouth in the morning., Disp: , Rfl: sildenafil (Viagra) 100 MG tablet, Take 1 tablet by mouth if needed., Disp: , Rfl: sucralfate (Carafate) 1 g tablet, Take 1 g by mouth., Disp: , Rfl: tamsulosin (Flomax) 0.4 MG 24 hr capsule, Take 0.4 mg by mouth in the morning., Disp: , Rfl: Testosterone 20.25 MG/1.25GM (1.62%) gel, Place on the skin., Disp: , Rfl: torsemide (Demadex) 100 MG tablet, TAKE 1 TABLET BY MOUTH 2 TIMES DAILY, Disp: 180 tablet, Rfl: 3 rosuvastatin (Crestor) 5 MG tablet, Take 5 mg by mouth in the morning., Disp: , Rfl: Review of Systems: Review of Systems Constitutional: Negative for activity change, chills, diaphoresis, fatigue and fever. Pt appears well compensated HENT: Negative for nosebleeds and trouble swallowing. Eyes: Negative for discharge and visual disturbance. Respiratory: Negative for apnea, cough, chest tightness, shortness of breath and wheezing. Denies SOB, states sleeping well, denies PND/orthopnea Cardiovascular: Negative for chest pain, palpitations and leg swelling. Denies chest pain or palpitations Gastrointestinal: Negative for abdominal distention, abdominal pain, blood in stool, diarrhea, nausea and vomiting. Endocrine: Negative for cold intolerance and heat intolerance. Genitourinary: Negative for hematuria. Musculoskeletal: Negative for gait problem and myalgias. Complains of chronic back pain that limits his mobility, using a rolling walker with a seat Skin: Negative for color change and rash. Neurological: Negative for dizziness, seizures, syncope, facial asymmetry, speech difficulty, weakness, light-headedness, numbness and headaches. Hematological: Does not bruise/bleed easily. Psychiatric/Behavioral: Negative for dysphoric mood. Physical Examination: Vitals: BP 102/52 (BP Location: Left arm, Patient Position: Sitting, BP Cuff Size: Adult) Pulse 91 Resp 16 Ht 5' 7 (1.702 m) Wt 184 lb 3.2 oz (83.6 kg) SpO2 96% BMI 28.85 kg/m Body mass index is 28.85 kg/m . Physical Exam Constitutional: Appearance: Normal appearance. Comments: Appears compensated HENT: Head: Normocephalic. Eyes: General: Right eye: No discharge. Left eye: No discharge. Neck: Comments: No JVD Cardiovascular: Rate and Rhythm: Normal rate and regular rhythm. Heart sounds: No murmur heard. Comments: Regular, rate controlled, soft systolic murmer present Pulmonary: Effort: Pulmonary effort is normal. Breath sounds: Normal breath sounds. No wheezing or rales. Comments: Clear t/o Abdominal: General: Bowel sounds are normal. There is no distension. Palpations: Abdomen is soft. Musculoskeletal: Cervical back: Neck supple. Right lower leg: No edema. Left lower leg: No edema. Comments: Trace non pitting BLE edema Skin: General: Skin is warm. Findings: No erythema or rash. Neurological: Mental Status: He is alert and oriented to person, place, and time. Psychiatric: Behavior: Behavior normal. Laboratory Tests: Lab Results Component Value Date GLUCOSE 144 (H) 06/05/2022 CALCIUM 9.1 06/05/2022 NA 136 06/05/2022 K 5.1 06/05/2022 CO2 25 06/05/2022 CL 96 (L) 06/05/2022 BUN 95 (H) 06/05/2022 CREATININE 3.23 (H) 06/05/2022 @LASTCMP@ Lab Results Component Value Date CHOL 166 05/14/2021 Lab Results Component Value Date TRIG 109 05/14/2021 Lab Results Component Value Date HDL 34 (L) 05/14/2021 No results found for: LDLCALC No results found for: VLDL Lab Results Component Value Date CHOLHDLRATIO 5 05/14/2021 Other Testing: Cardiac Tests: Echo (date: 03/20/2022): CONCLUSIONS SUMMARY: 1. Left ventricle: Systolic function is moderately decreased by the biplane method of disks. The estimated ejection fraction is 41%. However visually it seems to be lower more in the range of 30-35%. Features are consistent with a pseudonormal left ventricular filling pattern, with concomitant abnormal relaxation and increased filling pressure (grade 2 diastolic dysfunction). 2. Right ventricle: The cavity size is mildly dilated. Pacer wire noted in the right ventricle. Systolic function is normal. Right ventricular systolic pressure is at the upper limits of normal. The RV pressure during systole by Doppler is 34 mm Hg. 3. Aortic valve: There is mild-moderate, 1-2+ regurgitation. Assessment and Plan: 1. Nonischemic cardiomyopathy-presently well compensated, [place] [employer] functional class II, stage C -We will continue present doses of metoprolol succinate 100 mg daily, Entresto 24/26 mg 1 tab twicedaily, and Demadex 100 mg twice daily. -Aldactone 25 mg daily discontinued approximately 1 month ago due to stage IV chronic kidney disease -Repeat BMP and CBC ordered today to document stability. 2. ICD-stable, follows regularly in the device clinic with normal function 3. Chronic back pain-under the care of his primary care physician, he is optimistic about starting massage therapy. -He is felt to be a poor surgical candidate and recommended for conservative measures, per last visit with Dr. Roth June 05, 2022 4. History of DVT, anemia, and GI bleeding-he is not felt to be an oral anticoagulation candidate. 5. Follow-up-6 months and as needed. Petra Renteria APRN/MARIIA documented in this [facility]02-03-2023 Telephone encounter Note* Telephone Encounter - Dania Mcknight RN - 08/23/2022 1:23 PM EST Images from the original note were not included. Ralph Roth MD You 18 hours ago (7:14 PM) RC Please give trial off statin, thank you; till next visit PC to patient. Reviewed recommendations. He would like me to call back and leave a VM with recommendations. I will do so. He verbalized understanding. I called and LM on VM with recommendations and reminder about f/u appt 09/10. [email or web address] Telephone encounter Note* Telephone Encounter - Dania Mcknight RN - 08/22/2022 9:24 AM EST PC to pt. He has been taking spironolactone but he will stop taking. He called in the end of June asking if any of his medications could be causing leg weakness. He did not return calls to the office. I asked if he still had questions about this and he said yes. He states he rolled out out bed and cracked a disc in his back. He is currently undergoing steroid injections through pain management. He is currently using a walker but trying to build up his strength without one. He states he is having myalgias possibly related to his statin. He also describes aches as maybe sciatic pain. Will D/W RBC about trial off statin. [email or web address] Telephone encounter Note* Telephone Encounter - Ralph Roth MD - 08/21/2022 7:02 PM EST Please call and see if he is still on spironolactone. If he is, please have him stop it, thank you [email or web address] Telephone encounter Note* Telephone Encounter - Dania Mcknight RN - 07/16/2022 11:04 AM EST PC to patient. LMOM to call office. [email or web address] Miscellaneous Notes* Telephone Encounter - Dania Mcknight RN - 07/16/2022 11:04 AM EST PC to patient. LMOM to call office. * Telephone Encounter - Dania Mcknight RN - 07/11/2022 2:42 PM EST PC to pt. LMOM to call office. * Telephone Encounter - Marley Kc - 07/11/2022 1:03 PM EST Patient asking if any of his medications would cause his legs to be weak? documented in this [facility]SK[facility] [id number] Telephone encounter Note* Telephone Encounter - Dania Mcknight RN - 07/11/2022 2:42 PM EST PC to pt. LMOM to call office. [id number] Telephone encounter Note* Telephone Encounter - Marley Kc - 07/11/2022 1:03 PM EST Patient asking if any of his medications would cause his legs to be weak? [facility] [id number] NoteHospitalist Discharge Summary Megan Nascimento : 1940 Admit date: 05/13/2021 Discharge date: 05/21/2021 Admitting Physician: Gregg Harley MD Primary Care Physician: RIGOBERTO DURAND MD Visit Status: Admission Code Status: Full Code Discharge Diagnoses: 1. Acute HFrEF exacerbation related to HTN 2. Nonischemic cardiomyopathy 3. GABI/CKD stage 4 4. Anemia 5. HTN 6. DM2 with neuropathy 7. Chronic DVT/PE 8. NHL Diagnosis Date ? Bladder cancer (HCC) ? CHF (congestive heart failure) (HCC) ? Chronic kidney disease ? DM (diabetes mellitus) (HCC) ? DM (diabetes mellitus) (HCC) ? DVT (deep venous thrombosis) (HCC) ? ED (erectile dysfunction) ? Follicular non-Hodgkin's lymphoma (HCC) ? GERD (gastroesophageal reflux disease) ? GERD (gastroesophageal reflux disease) ? HTN (hypertension) ? HTN (hypertension) ? Hyperlipidemia ? Non-ischemic cardiomyopathy (HCC) ? PUD (peptic ulcer disease) ? Pulmonary embolism (HCC) ? Pulmonary fibrosis (HCC) ? Rosacea ? Tachycardia Procedures: labs, LE US Hospital Course: See discharge diagnoses list above and medication adjustments below in med rec.The patient is discharged in improved and stable condition. Consults: IP CONSULT TO HEART FAILURE NURSE/COORDINATOR IP CONSULT TO DIETITIAN IP CONSULT TO CARDIOLOGY IP CONSULT TO HOME CARE NEEDS Discharge Instructions: Diet: ADULT DIET; Regular; 4 carb choices (60 gm/meal); Low Sodium (2 gm); 2000 ml ADULT ORAL NUTRITION SUPPLEMENT; Breakfast, Dinner; Standard 4 oz Oral Supplement Activity: as tolerated Recommended Outpatient Tests: BMP in 1 week Disposition: Patient discharged in stable condition to Home. Greater than 30 minutes spent discharging the patient and coming up with patient discharge plan. Vitals: BP (!) 104/57 Pulse 60 Temp 96.2 ?F (35.7 ?C) (Temporal) Resp 16 Ht 5' 7 (1.702 m) Wt 176 lb 9.6 oz (80.1 kg) SpO2 95% BMI 27.66 kg/m? Pulse Ox: SpO2 Av.6 % Min: 92 % Max: 100 % Supplemental O2: O2 Flow Rate (L/min): 2 L/min General appearance: No apparent distress, appears stated age and cooperative with exam HEENT: Normal cephalic, atraumatic without obvious deformity. Pupils equal, round, and reactive to light. Extra ocular muscles intact. Conjunctivae/corneas clear. Neck: Supple, with full range of motion. No jugular venous distention. Trachea midline. No lymphadenopathy. Respiratory: Normal respiratory effort. Clear to auscultation, bilaterally without Rales/Wheezes/Rhonchi. Cardiovascular: Regular rate and rhythm with normal S1/S2 without murmurs, rubs or gallops. Abdomen: Soft, non-tender, non-distended with normal bowel sounds. No rebound or guarding. Musculoskeletal: Bilateral LE pitting edema noted. Skin: Skin color, texture, turgor normal. No rashes or lesions. Neurologic: Neurovascularly intact without any focal sensory/motor deficits. Cranial nerves: II-XII intact, grossly non-focal. Discharge Medications: Azam Megan Higuera Home Medication Instructions APOORVA:[id number] Printed on:05/21/21 8667 Medication Information albuterol (PROVENTIL) (2.5 MG/3ML) 0.083% nebulizer solution INHALE 1 VIAL VIA NEBULIZER 3-4 TIMES DIALY apixaban (ELIQUIS) 2.5 MG TABS tablet Take 1 tablet by mouth 2 times daily Cholecalciferol (VITAMIN D3) 1000 UNITS CAPS Take by mouth ferrous sulfate (IRON 325) 325 (65 Fe) MG tablet Take 1 tablet by mouth 2 times daily gabapentin (NEURONTIN) 600 MG tablet Take 600 mg by mouth 2 times daily. levothyroxine (SYNTHROID) 25 MCG tablet Take 25 mcg by mouth daily metFORMIN (GLUCOPHAGE-XR) 500 MG extended release tablet Take 500 mg by mouth 2 times daily metOLazone (ZAROXOLYN) 5 MG tablet Take 1 tablet by mouth three times a week metoprolol (TOPROL-XL) 100 MG XL tablet Take 100 mg by mouth daily Multiple Vitamins-Minerals (MULTIVITAMIN ADULTS PO) Take by mouth daily OXYGEN Inhale 2 L into the lungs nightly as needed pantoprazole (PROTONIX) 40 MG tablet daily potassium chloride (KLOR-CON M) 20 MEQ extended release tablet Take 1 tablet by mouth 2 times daily rosuvastatin (CRESTOR) 5 MG tablet Take 5 mg by mouth daily sacubitril-valsartan (ENTRESTO) 49-51 MG per tablet Take 1 tablet by mouth 2 times daily sertraline (ZOLOFT) 25 MG tablet Take 25 mg by mouth daily sildenafil (VIAGRA) 100 MG tablet Take 100 mg by mouth as needed for Erectile Dysfunction tamsulosin (FLOMAX) 0.4 MG capsule Take 0.4 mg by mouth daily Testosterone 20.25 MG/1.25GM (1.62%) GEL Place onto the skin. torsemide (DEMADEX) 100 MG tablet Take 1 tablet by mouth daily vitamin B-12 (CYANOCOBALAMIN) 1000 MCG tablet Take 1 tablet by mouth daily Recommended Follow-up: MD [address]la [address] [facility] [address] [facility] [id number] In 1 week post hospital fu appt inside technical sales representative In 2 weeks post hospital fu appt Readmission Risk Risk of Unplanned (more content not included)...[facility]07-15-2021 NoteHospitalist Discharge Summary Megan Nascimento : 1940 Admit date: 01/30/2021 Discharge date: 02/01/2021 Admitting Physician: Dat Angel DO Primary Care Physician: RIGOBERTO DURAND MD Visit Status: Admission Code Status: Full Code Discharge Diagnoses: 1. Acute/chronic cholecystitis 2. Cholelithiasis 3. Right pleural effusion 4. GABI 5. CKD stage 3/4 6. Mildly elevated troponin 7. Hypothyroidism 8. HFrEF-compensated 9. Non-ischemic cardiomyopathy 10. DM2 11. HTN 12. HLD 13. GERD 14. NHL 15. Pulm fibrosis 16. Chronic PE Diagnosis Date ? Bladder cancer (HCC) ? CHF (congestive heart failure) (HCC) ? Chronic kidney disease ? DM (diabetes mellitus) (HCC) ? DM (diabetes mellitus) (HCC) ? DVT (deep venous thrombosis) (HCC) ? ED (erectile dysfunction) ? Follicular non-Hodgkin's lymphoma (HCC) ? GERD (gastroesophageal reflux disease) ? GERD (gastroesophageal reflux disease) ? HTN (hypertension) ? HTN (hypertension) ? Hyperlipidemia ? Non-ischemic cardiomyopathy (HCC) ? PUD (peptic ulcer disease) ? Pulmonary embolism (HCC) ? Pulmonary fibrosis (HCC) ? Rosacea ? Tachycardia Procedures: CT(abd,pelvis) Hospital Course: Presented with abd pain. Admitted for acute/chronic cholecystitis. Seen by gen surgery and inside technical sales representative and not candidate for lap/dinah given cardiac history. Managed conservatively. Abdominal pain resolved and clinically better with IV abx. De-escalated to PO abx to finish course at home. will be managed medically for now. If recurs in future, may need perc drain. See medication adjustments below in med rec.The patient is discharged in improved and stable condition. Consults: IP CONSULT TO GENERAL SURGERY IP CONSULT TO CARDIOLOGY Discharge Instructions: Diet: ADULT DIET; Regular; 3 carb choices (45 gm/meal) Activity: as tolerated Recommended Outpatient Tests: Disposition: Patient discharged in stable condition to Home. Greater than 30 minutes spent discharging the patient and coming up with patient discharge plan. Vitals: BP (!) 142/79 Pulse 66 Temp 97.5 ?F (36.4 ?C) (Temporal) Resp 16 Ht 5' 7 (1.702 m) Wt 173 lb (78.5 kg) SpO2 95% BMI 27.10 kg/m? Pulse Ox: SpO2 Av.6 % Min: 92 % Max: 100 % Supplemental O2: O2 Flow Rate (L/min): 2 L/min General appearance: No apparent distress, appears stated age and cooperative with exam HEENT: Normal cephalic, atraumatic without obvious deformity. Pupils equal, round, and reactive to light. Extra ocular muscles intact. Conjunctivae/corneas clear. Neck: Supple, with full range of motion. +JVD, Trachea midline. No lymphadenopathy. Respiratory: Normal respiratory effort. Clear to auscultation, bilaterally without Rales/Wheezes/Rhonchi. Cardiovascular: Regular rate and rhythm with normal S1/S2 without murmurs, rubs or gallops. Abdomen: Soft, non-tender, non-distended with normal bowel sounds. No rebound or guarding. Musculoskeletal: Bilateral LE edema Skin: Skin color, texture, turgor normal. No rashes or lesions. Neurologic: Neurovascularly intact without any focal sensory/motor deficits. Cranial nerves: II-XII intact, grossly non-focal. Discharge Medications: Megan Nascimento Home Medication Instructions APOORVA:[id number] Printed on:02/01/21 1235 Medication Information albuterol (PROVENTIL) (2.5 MG/3ML) 0.083% nebulizer solution INHALE 1 VIAL VIA NEBULIZER 3-4 TIMES DIALY amoxicillin-clavulanate (AUGMENTIN) 500-125 MG per tablet Take 1 tablet by mouth 2 times daily for 7 days apixaban (ELIQUIS) 2.5 MG TABS tablet Take 1 tablet by mouth 2 times daily Cholecalciferol (VITAMIN D3) 1000 UNITS CAPS Take by mouth ferrous sulfate (IRON 325) 325 (65 Fe) MG tablet Take 1 tablet by mouth 2 times daily gabapentin (NEURONTIN) 600 MG tablet Take 600 mg by mouth 2 times daily. levothyroxine (SYNTHROID) 25 MCG tablet Take 25 mcg by mouth daily metFORMIN (GLUCOPHAGE-XR) 500 MG extended release tablet Take 500 mg by mouth 2 times daily metoprolol (TOPROL-XL) 100 MG XL tablet Take 100 mg by mouth daily Multiple Vitamins-Minerals (MULTIVITAMIN ADULTS PO) Take by mouth daily OXYGEN Inhale 2 L into the lungs nightly as needed pantoprazole (PROTONIX) 40 MG tablet daily potassium chloride (KLOR-CON M) 20 MEQ extended release tablet Take 1 tablet by mouth 2 times daily sacubitril-valsartan (ENTRESTO) 24-26 MG per tablet Take 1 tablet by mouth 2 times daily sertraline (ZOLOFT) 25 MG tablet Take 25 mg by mouth daily sildenafil (VIAGRA) 100 MG tablet Take 100 mg by mouth as needed for Erectile Dysfunction spironolactone (ALDACTONE) 25 MG tablet Take 25 mg by mouth daily (with breakfast) tamsulosin (FLOMAX) 0.4 MG capsule Take 0.4 mg by mouth daily Testosterone 20.25 MG/1.25GM (1.62%) GEL Place onto the skin. torsemide (DEMADEX) 100 MG tablet Take 1 tablet by mouth 2 times daily vitamin B-12 (CYANOCOBALAMIN) 10 (more content not included)...[facility]03-09-2021 NoteName: Megan Nascimento Date of : 1940 Date of Admission: 09/21/2020 Date of Discharge: 09/26/2020 Admitting physician: Mauro Padgett MD Discharge Attending: Marcela Rosado, Primary Care Physician: RIGOBERTO DURAND MD Review of Systems: Review of Systems Constitutional: Negative for chills, diaphoresis and fever. Pt states feeling improved Respiratory: Negative for cough, shortness of breath and wheezing. SOB is improved Cardiovascular: Negative for chest pain, palpitations and leg swelling. Denies CP or palpitations Gastrointestinal: Negative for abdominal distention, abdominal pain, blood in stool, constipation, diarrhea, nausea and vomiting. Genitourinary: Negative for hematuria. Neurological: Negative for dizziness and syncope. Physical Exam: Physical Exam Vitals: 09/26/20 0356 09/26/20 0502 09/26/20 0601 09/26/20 0704 BP: 130/78 128/77 (!) 116/55 Pulse: 92 91 99 Resp: 18 Temp: 98.1 ?F (36.7 ?C) 98 ?F (36.7 ?C) TempSrc: Oral Oral SpO2: (!) 77% 99% 99% Weight: 172 lb 12.8 oz (78.4 kg) Height: Reason for Admission: acute on chronic heart failure with reduced ejection fraction Consultants: Internal Medicine, nephrology HOSPITAL ADMISSION PROBLEM LIST: Patient Active Problem List Diagnosis ? Malignant neoplasm of overlapping sites of bladder (HCC) ? Follicular non-Hodgkin's lymphoma (HCC) ? Pulmonary embolism (HCC) ? DVT (deep venous thrombosis) (HCC) ? HTN (hypertension) ? Hyperlipidemia ? Non-ischemic cardiomyopathy (HCC) ? Iron deficiency anemia, unspecified ? Iron malabsorption ? Left bundle branch block ? Chronic HFrEF (heart failure with reduced ejection fraction) (HCC) ? ICD (implantable cardioverter-defibrillator), biventricular, in situ ? Calculus of gallbladder without cholecystitis without obstruction ? History of peptic ulcer disease ? Epigastric pain ? Stage 3b chronic kidney disease ? Acute on chronic clinical systolic heart failure (HCC) ? Acute HFrEF (heart failure with reduced ejection fraction) (HCC) Personal history of DVT Procedures: HOSPITAL COURSE : Mr. Nascimento was admitted from the office to [facility] for increasing weakness, fatigue, exertional dyspnea and a wet cough. He had 3-4+ bilateral lower extremity edema up to his hips and an 8 lb weight gain since his recent hospital discharge for elective 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. He was IV diuresed and transitioned back to oral diuretic by the time of his discharge (going home on increased Torsemide). His admit weight was 195 lbs and discharge weight is 172 lbs. He is down almost 7.5 L throughout his stay. He was seen today and without much improved and felt stable to discharge to home with close outpatient follow up arranged. He will need close follow up of outpatient labs. Last Labs: Lab Results Component Value Date WBC 6.2 09/26/2020 HGB 11.6 (L) 09/26/2020 HCT 36.4 (L) 09/26/2020 MCV 83.5 09/26/2020 PLT 261 09/26/2020 Lab Results Component Value Date NA 139 09/26/2020 K 4.3 09/26/2020 CL 94 09/26/2020 CO2 35 09/26/2020 BUN 41 09/26/2020 CREATININE 2.14 09/26/2020 GLUCOSE 115 09/26/2020 CALCIUM 9.5 09/26/2020 No results found for: CHOL No results found for: TRIG No results found for: HDL No results found for: LDLCALC, LDLCHOLESTEROL Final Principle Discharge Diagnosis: Acute on chronic heart failure with reduced ejection fraction His cardiomyopathy is thought due to chemotherapy but hypertension is probably also playing a role. Because we did not follow him longitudinally and see where his blood pressures have been, it's impossible for us to determine how much his hypertension contributed to his cardiomyopathy. Secondary Discharge diagnosis: GABI/CKD Discharge Medications: Megan Nascimento Home Medication Instructions APOORVA:[id number] Printed on:09/26/20 1012 Medication Information albuterol (PROVENTIL) (2.5 MG/3ML) 0.083% nebulizer solution INHALE 1 VIAL VIA NEBULIZER 3-4 TIMES DIALY apixaban (ELIQUIS) 2.5 MG TABS tablet Take 1 tablet by mouth 2 times daily Cholecalciferol (VITAMIN D3) 1000 UNITS CAPS Take by mouth Coenzyme Q10 (COQ-10) 30 MG CAPS Take 1 capsule by mouth daily ferrous sulfate (IRON 325) 325 (65 Fe) MG tablet Take 1 tablet by mouth 2 times daily gabapentin (NEURONTIN) 400 MG capsule Take 1 capsule by mouth 2 times daily for 45 days. metoprolol (TOPROL-XL) 100 MG XL tablet Take 100 mg by mouth daily Multiple Vitamins-Minerals (MULTIVITAMIN ADULTS PO) Take by mouth daily pantoprazole (PROTONIX) 40 MG tablet daily potassium chloride (KLOR-CON M) 20 MEQ extended release tablet Take 1 tablet by mouth 3 times daily (with meals) sacubitril-valsartan (ENTRESTO) 24-26 MG per tablet Take 1 tablet by mouth 2 times daily sildenafil (VIAGRA) 100 MG tablet Take 100 mg by mouth as needed for Erectile Dysfunction tamsulosin (FLOMAX) 0.4 MG capsule Take 0.4 mg by mouth ngoc (more content not included)...[facility] Discharge summary Author Shaun Taveras [facility] November 27, 2023 8:41am Note Date/Time November 27, 2023 7:55am [facility] Medical Records Department [address] [place] [address] Emergency Department Summary 11/27/23 MR#: [id number] Acct: [id number] Name: MEGAN NASCIMENTO Rep #:[id number] : 1940 83 From: Shaun Taveras DO PCP: Dr. Rigoberto Durand MD Status:REG E R Location: ED HPI History of Present Illness Chief Complaint: Weakness Informant: patient, family and EMS Narrative Narrative: Patient is an 83-year-old male with past medical history of congestive heart failure chronic kidney disease hypertension and previous GI bleed requiring hospitalization and blood transfusion. He states that over the last 1 to 2 dayshe has had generalized malaise and muscle aches and weakness. He states that last night/this morning around 3 or 4 AM he got up to use the bathroom and as hetried to stand up out of bed felt so weak that he slid down from the bed onto the floor and could not stand. He denies striking his head or any loss of consciousness he denies any history of bleeding disorder or blood thinner use. However he lives with his and based on his severe weakness she could not help him up and therefore EMS was called and he was brought to the hospital for evaluation [facility] Medical History Anticoagulant-induced bleeding Benign positional vertigo Blood transfusion during current hospitalisation CKD (chronic kidney disease), stage IV Diabetes GI bleed HFrEF (heart failure with reduced ejection fraction) Hiatal hernia MIAU (minor aphthous ulceration) Pulmonary embolism Home Medications levothyroxine 75 mcg tablet 75 mcg PO DAILY 06/28/21 [History Last Taken Unknown] mecobalamin (vitamin B12) 1,000 mcg chewable tablet (B12 Active) 1,000 mcg PO DAILY 06/28/21 [History Last Taken Unknown] metoprolol succinate 100 mg tablet,extended release 24 hr 100 mg PO DAILY 06/28/21 [History Last Taken Unknown] fuzzaqcgqeyo-ywa-hilvk acid-vit K-lycop 400 mcg-20 mcg-370 mcg tablet (Men's 50 Plus Multivitamin) 1 tab PO DAILY 06/28/21 [History Last Taken Unknown] potassium chloride 20 mEq tablet,extended release(part/cryst) 20 meq PO BID 06/28/21 [History Last Taken Unknown] sertraline 25 mg tablet 25 mg PO DAILY 06/28/21 [History Last Taken Unknown] spironolactone 25 mg tablet 25 mg PO DAILY 06/28/21 [History Last Taken Unknown] tamsulosin 0.4 mg capsule 0.4 mg PO DAILY 06/28/21 [History Last Taken Unknown] ferrous sulfate 325 mg (65 mg iron) tablet 325 mg PO DAILY #30 tabs 07/01/21 [Rx Last Taken Unknown] sucralfate 1 gram tablet (Carafate) 1 g PO .QID 30 days 07/01/21 [Rx Last Taken Unknown] gabapentin 600 mg tablet 600 mg PO BID #0 tabs 08/22/21 [Rx Last Taken Unknown] torsemide 20 mg tablet 40 mg (2 x 20 mg) PO BID #120 tabs 08/22/21 [Rx Last Taken Unknown] pantoprazole 40 mg tablet,delayed release 40 mg PO BID #120 tabs 09/21/21 [Rx Last Taken Unknown] sucralfate 100 mg/mL oral suspension 10 ml PO BID #1,000 mL 09/21/21 [Rx Last Taken Unknown] colestipol 1 gram tablet 0.5 g (1/2 x 1 gram) PO .every other day 30 days #30 tabs 11/19/21 [Rx Last Taken Unknown] Allergy/AdvReac Type Severity Reaction Status Date / Time No Known Allergies Allergy Verified 11/27/23 04:42 Family History Other Cancer Hypertension Surgical History History of permanent cardiac pacemaker placement Social History household members: spouse Smoking Status: Never smoker alcohol intake: never substance use type: does not use ROS ROS ED Constitutional Constitutional ED: Denies chills or fever(s) Eyes Eyes: Denies blurry vision, change in vision or diplopia ENT ENT ED: Denies rhinorrhea or sore throat Cardiovascular Cardiovascular: Denies chest pain Respiratory/Chest Respiratory/Chest: Denies cough or dyspnea Gastrointestinal Gastrointestinal: Denies abdominal pain, diarrhea, nausea or vomiting Genitourinary Genitourinary ED: Denies dysuria or hematuria Musculoskeletal Musculoskeletal: Reports myalgias Integumentary Denies rash Neurologic Neurologic: Reports weakness; Denies headache(s) or paresthesias Hematologic/Lymphatic Hematologic/Lymphatic: Reports easy bleeding and easy bruising EXAM Physical Exam Const Vital Signs: 11/27/23 04:20 11/27/23 06:20 11/27/23 07:59 Temperature 97.2 F L Temperature Source Temporal Pulse Rate 78 77 70 Respiratory Rate 18 18 14 Blood Pressure 124/49 H 126/60 H 122/56 H Blood Pressure Mean 74 82 78 Pulse Ox 95 99 99 Oxygen Delivery Method Room Air Room Air Room Air Positive well nourished and well developed General Appearance ED: well developed and pallor HEENT Reports dry mucous membranes HEENT Narrative: Mucous membranes are dry and tacky without tongue or lip swelling airway edema or compromise No secondary changes in the posterior pharynx to suggest infection Mouth ED: Yes dry mucous membranes Mouth: dry mucous membranes Eyes PERRL and EOMs intact bilaterally Eyes Narrative: Positive subconjunctival pallor noted General Eye ED: Yes pale conjunctiva; Negative for scleral icterus Neck supple and no JVD Neck Narrative: No bony deformity or step-off of the cervical spine no midline tenderness to palpation No nuchal rigidity or meningeal signs noted Chest Wall palpation of chest normal Chest Narrative: No bony deformity or crepitance Resp normal respiratory effort and clear to auscultation bilaterally Resp Narrative: No nasal flaring retractions tachypnea or accessory muscle use Cardio regular rate and regular rhythm Rate: other Other Details: Heart is regular rate and rhythm Radial and carotid pulses are equal and symmetric GI normal to inspection, nondistended, normoactive bowel sounds, non-tender, non-distended and no masses GI Narrative: No voluntary guarding or rigidity or pulsatile mass Auscultation: normoactive bowel sounds Palpation: soft Back/Spine Back/Spine Narrative: No bony deformity or step-off of the thoracic or lumbar spine no midline tenderness to palpation Extremity normal to inspection Extremity Narrative: Pelvis is stable there is no shortening or external rotation of either lower extremity Patient does have full active range of motion of all extremities Neuro oriented x3, CN's II-XII intact bilaterally and no sensory deficits noted Neuro Narrative: Cranial nerves II through XII are grossly intact there are no focal neurologic deficits NIH stroke scale score of 0 Sensorium / Orientation: alert Psych mental status grossly normal Skin no rashes or lesions noted, no wounds and No skin turgor normal Skin Narrative: Skin turgor is increased Skin is pale in color but capillary refills less than 3 seconds No areas of erythema or warmth No abrasions or ecchymosis noted General Skin Exam: pallor; Negative for jaundice MDM MDM MDM Narrative Medical decision making narrative: Patient arrived to the ER with stable vitals and a nonfocal neurologic exam. Hereported generalized weakness and myalgias and had a stroke scale score of 0 going against the need to activate a acute stroke team. Differential diagnosis is for acute blood loss anemia versus electrolyte abnormality versus infectious process such as septicemia from pneumonia or UTI. There is also concern for potential acute on chronic kidney disease. There is also concern with his myalgias this could be due to a viral infection such as COVID influenza or RSV. Secondary to this basic labs were obtained. The patient's viral swab was negative chest x-ray revealed no obvious pneumonia urine sample revealed no signof infection. However his white blood cell count is elevated approximately 26 and his kidney function has elevated from baseline of approximately 2.2-3.8 indicating acute on chronic kidney disease. At this time I do not have an obvious source of infection as his chest x-ray does not show pneumonia and his urine sample was clear as well as his viral swabs being negative. Therefore CTsof the chest abdomen and pelvis will be obtained. Imaging study revealed no obvious cause of infection. It did document gallstones but he does not have anypericholecystic changes or pain on palpation in the right upper quadrant. His CK level is elevated at 2300 consistent with rhabdomyolysis indicating he has been on the ground longer than reported. Therefore based on his generalized weakness acute on chronic kidney injury and now rhabdomyolysis medicine was contacted and they do agree to accept the patient for further care in the hospital History & Record Review Discussion w/independent historian: Patient and Family Lab Data Attestation: I reviewed the patient's lab results. Labs: Laboratory Results - last 24 hr 11/27/23 11/27/23 11/27/23 05:14 06:00 07:25 WBC 25.7 H RBC 3.82 L Hgb 11.1 L Hct 34.6 L MCV 90.6 MCH 29.1 MCHC 32.1 RDW Std Deviation 45.2 H RDW Coeff of Anuradha 13.7 Plt Count 226 MPV 11.3 Immature Gran % (Auto) 2.800 H Neut % (Auto) 90.4 H Lymph % (Auto) 2.1 L Haskell % (Auto) 4.0 Eos % (Auto) 0.4 Baso % (Auto) 0.3 Absolute Neuts (auto) 23.2 H Absolute Lymphs (auto) 0.54 L Nucleated RBC % 0 Differential Comment SCANNED Sodium 132 L Potassium 3.2 L Chloride 95 L Carbon Dioxide 23.0 Anion Gap 14 BUN 69 H Creatinine 3.86 H Estim Creat Clear Calc 15.27 Est GFR (MDRD) Af Amer 19 L Est GFR (MDRD) Non-Af 16 L BUN/Creatinine Ratio 17.9 Glucose 214 H Lactic Acid 1.2 Calcium 8.7 Magnesium 1.8 Total Creatine Kinase 2351 H TSH 1.10 Urine Color Yellow Urine Clarity Clear Urine pH 5.0 Ur Specific [place] 1.015 Urine Protein Negative Urine Glucose (UA) Normal Urine Ketones Negative Urine Occult Blood Negative Urine Nitrite Negative Urine Bilirubin Negative Urine Urobilinogen Normal Ur Leukocyte Esterase Negative Urine RBC 0 SEEN Urine WBC 0 SEEN Ur Squamous Epith Cells 0 SEEN Urine Bacteria 0 SEEN Urine Mucus 0 SEEN Radiography Diagnostic Testing: Clinical Impression(s) from Imaging Studies Chest X-Ray 11/27/23 05:03 IMPRESSION: Moderate to large hiatal hernia with no acute pulmonary airspace disease. Electronically Signed: Les Sumner MD at 5:58 EDT , Chest/Abdomen/Pelvis CT 11/27/23 07:21 IMPRESSION: 1. Chest: Fibrotic opacity/scar tissue is present in the right middle lobe as well as the lingula. No consolidation or pleural effusion or pulmonary edema is present. No parenchymal nodules or malignant lesions are present. 3.8 mm nodular focus of fibrosis is present in the right middle lobe as seen on image 66/126 series 6. 2. 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 Abdomen and pelvis: Gallstones 4. Colonic diverticulosis Electronically Signed: Alexi Eden MD at 8:32 EDT , Chest x-ray as interpreted by the emergency medicine physician reveals a hiatal hernia which is chronic in nature without acute infiltrate pneumothorax or pleural effusion Management Discussion w/another healthcare provider: Hospitalist Discharge Plan Triage Chief Complaint: Weakness ED Provider: Shaun Taveras Dx/Rx/DC Orders Clinical Impression: Generalized weakness, Leukocytosis, Rhabdomyolysis, [id number] kidney injury Prescriptions: No Action sucralfate 100 mg/mL suspension 10 ml PO BID Qty: 1000 0RF pantoprazole 40 mg tablet,delayed release (DR/EC) 40 mg PO BID Qty: 120 3RF colestipol 1 gram tablet 0.5 g PO .every other day 30 Days Qty: 30 1RF metoprolol succinate 100 mg Tablet Extended Release 24 Hr 100 mg PO DAILY spironolactone 25 mg Tablet 25 mg PO DAILY levothyroxine 75 mcg Tablet 75 mcg PO DAILY potassium chloride 20 mEq Tablet,Er Particles/Crystals 20 meq PO BID tamsulosin 0.4 mg Capsule 0.4 mg PO DAILY sertraline 25 mg Tablet 25 mg PO DAILY Men's 50 Plus Multivitamin 400-20-370 mcg Tablet 1 tab PO DAILY B12 Active 1,000 mcg Tablet,Chewable 1,000 mcg PO DAILY ferrous sulfate 325 mg (65 mg iron) tablet 325 mg PO DAILY Qty: 30 0RF sucralfate [Carafate] 1 gram tablet 1 g PO .QID 30 Days 0RF torsemide 20 mg tablet 40 mg PO BID Qty: 120 0RF gabapentin 600 mg Tablet 600 mg PO BID Qty: 0 0RF Rx Instructions: 1/2 tab twice a day for 5 days, then 600mg twice a day thereafter Primary Care Provider: Rigoberto Durand Referrals: Rigoberto Durand MD [Primary Care Provider] - Disposition Disposition: Acute Care Hospital [facility] What to do if you have Problems For any increased pain, shortness of breath, bleeding, nausea or vomiting, chestpain, or any unexpected problems, contact your Primary Care Provider. Call [facility] ([phone]) or report to the closest Emergency Room. Call 911 if necessary. 11/27/23 0841 <Electronically signed by Shaun Taveras DO> Cosigner Signature (if applicable): CC: Dr. Rigoberto Durand MD ~ Signed [facility] Work Phone: Evaluation note* Diagnosis Onset Date Resolution Status GI bleed acute MIAU (minor aphthous ulceration) acute Congestive heart failure acu te GI bleed acute Orthostatic hypotension reso lved Upper GI bleed resolved Acid reflux acute Constipation acute GI bleed acute [facility] Work Phone: Evaluation note* Diagnosis Onset Date Resolution Status Acid reflux acute Constipation acute [facility] Work Phone: Evaluation note* Diagnosis Onset Date Resolution Status Acid reflux chronic Constipation chronic Acid reflux chronic Constipation chronic GI bleed resolved [facility] Work Phone: Evaluation note* Diagnosis Chronic systolic (congestive) heart failure (HCC) Chronic HFrEF (heart failure with reduced ejection fraction) ([facility]) documented in this encounter [facility] Work Phone: Evaluation note* Diagnosis Onset Date Resolution Status Acid reflux chronic Constipation chronic GI bleed resolved Spinal stenosis of lumbar region with radiculopathy acute [facility] Work Phone: Evaluation noteNo assessment information available [facility] Work Phone: Evaluation note* Diagnosis Hyperlipidemia, unspecified hyperlipidemia type Encounter for adjustment or management of cardiac device documented in this encounter [facility]* Diagnosis Acute HFrEF (heart failure with reduced ejection fraction) ([facility]) Encounter for adjustment or management of cardiac device documented in this encounter [facility]* Diagnosis Acute HFrEF (heart failure with reduced ejection fraction) ([facility]) documented in this encounter [facility]* Diagnosis Erectile dysfunction, unspecified erectile dysfunction type documented in this encounter [facility]* Diagnosis Non-ischemic cardiomyopathy (CMS/HCC) ([facility])- Primary Other primary cardiomyopathies Primary hypertension Unspecified essential hypertension Acute HFrEF (heart failure with reduced ejection fraction) ([facility]) ICD (implantable cardioverter-defibrillator), biventricular, in situ Other iron deficiency anemia documented in this encounter [facility]* Diagnosis Chronic HFrEF (heart failure with reduced ejection fraction) ([facility]) Encounter for adjustment or management of cardiac device Encounter for adjustment or management of cardiac device documented in this encounter [facility]* Diagnosis Acute HFrEF (heart failure with reduced ejection fraction) ([facility]) Encounter for adjustment or management of cardiac device documented in this encounter [facility]* Diagnosis Erectile dysfunction, unspecified erectile dysfunction type Encounter for adjustment or management of cardiac device [facility]* Diagnosis Acute HFrEF (heart failure with reduced ejection fraction) (CMS/HCC) (HCC)- Primary Presence of cardiac resynchronization therapy defibrillator (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) Non-ischemic cardiomyopathy (CMS/HCC) (HCC) Other primary cardiomyopathies Encounter for adjustment or management of cardiac device [facility] Diagnosis Chronic HFrEF (heart failure with reduced ejection fraction) (HCC)- Primary Encounter for adjustment or management of cardiac device [facility]* Diagnosis Acute HFrEF (heart failure with reduced ejection fraction) (HCC) Encounter for adjustment or management of cardiac device [facility] Diagnosis Primary hypertension- Primary Unspecified essential hypertension Acute systolic heart failure (HCC) Acute systolic heart failure Acute on chronic clinical systolic heart failure (HCC) Encounter for adjustment or management of cardiac device [facility]* Diagnosis Acute systolic congestive heart failure (HCC)- Primary Bilateral leg edema Edema Acute systolic congestive heart failure (HCC) Chronic kidney disease, unspecified CKD stage AICD (automatic cardioverter/defibrillator) present Automatic implantable cardiac defibrillator in situ Presence of cardiac resynchronization therapy defibrillator (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) HTN (hypertension) Unspecified essential hypertension Follicular non-Hodgkin's lymphoma (HCC) Encounter for adjustment or management of cardiac device [facility]* Diagnosis Cellulitis- Primary Cellulitis and abscess of unspecified site Cellulitis of lower extremity, unspecified laterality Acute HFrEF (heart failure with reduced ejection fraction) (HCC) Cellulitis of lower extremity, unspecified laterality Encounter for adjustment or management of cardiac device [facility]* Diagnosis Non-ischemic cardiomyopathy (CMS/HCC) (HCC)- Primary Other primary cardiomyopathies Acute HFrEF (heart failure with reduced ejection fraction) (HCC) ICD (implantable cardioverter-defibrillator), biventricular, in situ Encounter for adjustment or management of cardiac device [facility]* Diagnosis Chronic HFrEF (heart failure with reduced ejection fraction) (HCC) Encounter for adjustment or management of cardiac device [facility] Discharge instructions Additional Instructions Follow-up with your PCP and return for any other concerns.[facility] Work Phone: Hospital Discharge instructionsAdditional Instructions Follow-up with your doctors in outpatient setting. Return with worsening symptoms or any other concerns. Have your kota removed in approximately 5 days by your primary care physician. Showed them the CT results that were printed off for your records.[facility] Work Phone: Reason for referral (narrative)No reason for referral information availableW[facility] Work Phone: History of Present Illness * Saira Husain RN - 08/22/2020 11:00 AM EST Arrival Note Patient is here for iron. Labs were not ordered. 1226 Ordered treatment completed. Patient discharged without any issues. Patient has a copy of next infusion appointment and verbalizes understanding. All questions answered. documented in this encounter* Ivy Hooks RN - 08/29/2020 3:00 PM EST Arrival Note Patient is here for iron. Labs were not ordered. 1540-Ordered treatment completed. Patient discharged without any issues. Patient has a copy of nextinfusion appointment and verbalizes understanding. All questions answered. documented in this encounter* Cindy Recinos APRN - CNP - 09/14/2020 7:57 AM EST Heart Failure Daily Progress Note Follow up for: HFrEF, volume overload SUBJECTIVE: Today, Megan Nascimento states he is feeling less bladder pressure after cortés placed as well as improvements in his BLE swelling. He denies chest pain/pressure but does still has some tenderness around 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-P site. Denies dizziness or feeling lightheaded. SCHEDULED MEDICATIONS: magnesium sulfate 2,000 mg Intravenous Once sacubitril-valsartan 1 tablet Oral BID [MAR Hold] sodium chloride flush 10 mL Intravenous 2 times per day sodium chloride flush 10 mL Intravenous 2 times per day Vitamin D 1,000 Units Oral Daily ferrous sulfate 325 mg Oral BID gabapentin 600 mg Oral BID metoprolol succinate 100 mg Oral Daily therapeutic multivitamin-minerals 1 tablet Oral Daily pantoprazole 40 mg Oral Daily tamsulosin 0.4 mg Oral Daily vitamin B-12 1,000 mcg Oral Daily REVIEW OF SYSTEMS: Review of Systems Constitutional: Negative for activity change, appetite change, diaphoresis, fatigue and unexpected weight change. HENT: Negative for facial swelling, hearing loss and trouble swallowing. Eyes: Negative for photophobia, discharge and visual disturbance. Respiratory: Positive for shortness of breath (mild orthopnea). Negative for cough, chest tightness, wheezing and stridor. Denies orthopnea Denies PND Cardiovascular: Positive for leg swelling (improving). Negative for chest pain and palpitations. Gastrointestinal: Negative for abdominal distention, abdominal pain, blood in stool, constipation, diarrhea, nausea and vomiting. Endocrine: Negative for polydipsia, polyphagia and polyuria. Genitourinary: Negative for difficulty urinating, frequency and urgency. Musculoskeletal: Negative for arthralgias, gait problem and myalgias. Skin: Negative for pallor, rash and wound. Neurological: Negative for dizziness, syncope, weakness, light-headedness and numbness. Hematological: Negative for adenopathy. Does not bruise/bleed easily. Psychiatric/Behavioral: Negative for confusion and sleep disturbance. The patient is not nervous/anxious. VITAL SIGNS:BP (!) 146/113 Pulse 88 Temp 97.5 F (36.4 C) (Temporal) Resp 16 Ht 5' 7 (1.702m) Wt 192 lb 8 oz (87.3 kg) SpO2 92% BMI 30.15 kg/m Admission weight: 187 lb (84.8 kg) Patient Vitals for the past 96 hrs (Last 3 readings): Weight 09/14/20 0512 192 lb 8 oz (87.3 kg) 09/13/20 0600 194 lb 12.8 oz (88.4 kg) 09/12/20 1645 187 lb (84.8 kg) PHYSICAL EXAMINATION: Physical Exam Constitutional: Appearance: Normal appearance. He is obese. HENT: Head: Normocephalic and atraumatic. Right Ear: External ear normal. Left Ear: External ear normal. Nose: Nose normal. Mouth/Throat: Mouth: Mucous membranes are moist. Pharynx: Oropharynx is clear. Eyes: Conjunctiva/sclera: Conjunctivae normal. Pupils: Pupils are equal, round, and reactive to light. Neck: Musculoskeletal: Normal range of motion. Vascular: JVD present. Cardiovascular: Rate and Rhythm: Normal rate and regular rhythm. Pulses: Normal pulses. Heart sounds: Normal heart sounds. Comments: BiV paced Pulmonary: Effort: Pulmonary effort is normal. Breath sounds: Normal breath sounds. Abdominal: General: Abdomen is flat. Bowel sounds are normal. Palpations: Abdomen is soft. Musculoskeletal: Normal range of motion. Right lower le+ Edema present. Left lower le+ Edema present. Skin: General: Skin is warm and dry. Capillary Refill: Capillary refill takes less than 2 seconds. Neurological: General: No focal deficit present. Mental Status: He is alert and oriented to person, place, and time. Psychiatric: Mood and Affect: Mood normal. Behavior: Behavior normal. Thought Content: Thought content normal. Data: Scheduled Meds: Reviewed Continuous Infusions: furosemide (LASIX) 1mg/ml infusion 10 mg/hr (09/14/20 0633) Intake/Output Summary (Last 24 hours) at 09/14/2020 0757 Last data filed at 09/14/2020 0452 Gross per 24 hour Intake 617.33 ml Output 2260 ml Net -1642.67 ml CBC: Recent Labs 09/12/20 0030 09/14/20 0020 WBC 3.9 6.0 HGB 10.2* 10.1* HCT 33.1* 32.3* PLT 276 230 BMP: Recent Labs 09/13/20 0351 09/14/20 0020 NA 134* 135 K 4.1 3.3* CL 95* 96* CO2 27 29 BUN 47* 48* CREATININE 3.08* 2.53* Liver: No results for input(s): AST, ALT, ALKPHOS, PROT, LABALBU, BILITOT in the last 72 hours. Invalid input(s): BILDIR ABGs: No results found for: PH, PO2, PCO2 : No results for input(s): INR in the last 72 hours. PRO-BNP: NT Pro-BNP Date Value Ref Range Status 09/12/2020 29,835 (H) 0 - 450 pg/mL Final TROPONIN: No results found for: TROPONINI TSH: No results found for: TSH Cardiac Injury Profile: No results for input(s): CKTOTAL, CKMB, TROPONINI in the last 72 hours. Profile: No results found for: TRIG, HDL, LDLCALC, CHOL Hemoglobin A1C: No components found for: HGBA1C ANATITER: No results for input(s): ANATITER in the last 72 hours. HIV:No results for input(s): HIV1X2 in the last 72 hours. Ferritin:No results for input(s): FERRITIN in the last 72 hours. Digoxin levelNo results for input(s): DIGOXIN in the last 72 hours. EKG: See Report Tele: BiV paced Last Echo: 08/23/2020 1. Left ventricle: Systolic function is by the biplane method of disks. The estimated ejection fraction is 14%. Severe diffuse hypokinesis with regional variations. Unable to assess LV diastolic function due to severe mitral regurgitation 2. Right ventricle: The cavity size is moderately dilated. Systolic function is mildly decreased by visual assessment. 3. Left atrium: The atrium is severely dilated. 4. Right atrium: The atrium is severely dilated. 5. Mitral valve: There is moderate-severe, 3+ regurgitation, directed eccentrically and toward the septum. ERO: 0.06 cm^2. 6. Aortic valve: Mildly thickened, mildly calcified leaflets. There is mild-moderate, 1-2+ regurgitation. 7. Tricuspid valve: There is moderate-severe, 3+ regurgitation. The effective regurgitant orifice (PISA) is 0.2 cm^2. 8. Aorta: The aorta is poorly visualized and moderately dilated. The ascending aorta maximal dimension is 4.2 cm. 9. Pericardium, extracardiac: There is no pericardial effusion. There is a right pleural effusion. 10. Pulmonary arteries: Systolic pressure is moderately increased, estimated to be 55 mm Hg. 11. Inferior vena cava: The vessel is dilated. The IVC collapses by less than 50% with inspiration. Last cardiac catheterization: 04/2019 No significant disease IMPRESSIONS and RECOMMENDATIONS: #Acute on chronic HFrEF 14%, NICM, complicated by mod to severe MR/TR. Stage C - Found to be in ADHF with volume overload after 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 placement - Diuresing with lasix gtt at 10mg/hr and net -500ml in the last 24hrs. On exam he appears warm with elevated JVD. Continue Lasix gtt with hopeful d/c tomorrow. - Continue Entresto low dose (noted to have transient hypotension thought to be d/t higher doses ofEntresto) - Toprol XL 100mg daily - Strict I/Os, daily standing weights, 1.8L fluid restriction, 2gm Na diet #LBBB POD#3 s/p 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 by Dr. Gates - Placed 09/11/20 - Follow up two weeks device clinic and three months with Dr Gates. 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 Since 03/2020 has been 1.0 -2.7 - GABI this admit is likely 2/2 obstructive uropathy vs volume overload now s/p cortés and improvement in cr today. #Urinary retention - Follows with Dr. Anirudh Arshad with [facility] - Continue flomax - Renal u/s to r/o hydro #Iron def anemia - PO iron Attempted to call Zuleyka Nascimento per patient's request to update on plan of care. Left VM and will try again tomorrow. Seen and discussed with Dr. Lindsey [facility] Heart Failure Program [address] [place] [address] Office: [phone] * Mackenzie Bridges MD - 09/14/2020 5:42 AM EST I was called for abdominal itching overnight without obvious rash. That spontaneously improved towards the early hours of the morning. Also got called on abnormal labs (K of 3.3 and Mg of 1.6 in the setting of CKD/Cr 2.3). 2 g of IV Mg sulfate and 40 meq of K chloride given. BMP recheck at noon. Car Unloader, PGY-6 Pager [phone] * Natan Vicente MD - 09/13/2020 2:12 PM EST CARDIOLOGY PROGRESS NOTE Chart and interval events reviewed. Reason for Visit Megan Nascimento is a 80 y.o. male with a PMHx of HFrEF/NI-DCM (EF 14%), non-Hodgkins lymphoma (s/p chemotherapy), PE/DVT (dx in [place], on Eliquis), LBBB, CKD who underwent 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 placement yesterday and heart failure service is consulted for transient hypotension post-op, found to be in decompensated HF. SUBJECTIVE: Megan Nascimento states he feels at baseline, denying SOB, orthopnea, CP, palpitations. Note, IV lasix gtt was stopped from 4am to about 11am. Also with urinary retention overnight with 400cc on bladder scan, no intervention at that time. SCHEDULED MEDICATIONS: sacubitril-valsartan 1 tablet Oral BID [MAR Hold] sodium chloride flush 10 mL Intravenous 2 times per day sodium chloride flush 10 mL Intravenous 2 times per day Vitamin D 1,000 Units Oral Daily ferrous sulfate 325 mg Oral BID gabapentin 600 mg Oral BID metoprolol succinate 100 mg Oral Daily therapeutic multivitamin-minerals 1 tablet Oral Daily pantoprazole 40 mg Oral Daily tamsulosin 0.4 mg Oral Daily vitamin B-12 1,000 mcg Oral Daily Active Problems: Left bundle branch block Chronic systolic heart failure (HCC) Resolved Problems: * No resolved hospital problems. * Review of Systems: Review of Systems 10 point ROS negative except as per subjective VITAL SIGNS: Vitals: 09/13/20 0340 09/13/20 0600 09/13/20 0931 09/13/20 1109 BP: 108/82 108/65 107/71 Pulse: 86 87 81 Resp: 16 14 18 Temp: 96.4 F (35.8 C) 97 F (36.1 C) 97.9 F (36.6 C) TempSrc: Temporal Temporal Temporal SpO2: 93% 90% 95% Weight: 194 lb 12.8 oz (88.4 kg) Height: Intake/Output Summary (Last 24 hours) at 09/13/2020 1420 Last data filed at 09/13/2020 0931 Gross per 24 hour Intake Output 665 ml Net -665 ml Patient Vitals for the past 96 hrs (Last 3 readings): Weight 09/13/20 0600 194 lb 12.8 oz (88.4 kg) 09/12/20 1645 187 lb (84.8 kg) 09/11/20 1121 187 lb (84.8 kg) Physical Exam: Physical Exam Constitutional: No acute distress. Well-nourished. Well hydrated. Psychiatric: A &O x 3. Mood is good. Affect is appropriate. Eyes: Pupils are equal and round; Conjunctiva are not injected; Sclera are non-icteric. ENMT: Ears/nose without external abnormalities. Oral mucosa is pink and moist. Neck: + JVD, markedly elevated still. No carotid bruits; No thyromegaly. Respiratory: Lungs with sparse rhonchi. No rales or wheezes. Respiratory effort is normal and symmetrical bilaterally Heart: RRR ; Normal S1 and S2. no murmur; No rub; no gallop. Vasc: Peripheral pulses 1+. Abdomen: Normal BS, soft, non-tender, non-distended; no hepatomegaly. Extremities/Skin: 2+ LE edema; Skin warm to touch and well perfused Musculoskeletal: Head - normocephalic. Neck - supple Data: Scheduled Meds: Reviewed Continuous Infusions: furosemide (LASIX) 1mg/ml infusion 10 mg/hr (09/13/20 1118) [MAR Hold] sodium chloride CBC: Recent Labs 09/12/20 0030 WBC 3.9 HGB 10.2* HCT 33.1* PLT 276 BMP: Recent Labs 09/12/20 0030 09/13/20 0351 NA 137 134* K 3.6 4.1 CL 97* 95* CO2 26 27 BUN 40* 47* CREATININE 2.56* 3.08* INR:No results for input(s): INR in the last 72 hours. No results for input(s): BNP in the last 72 hours. TSH: No results found for: TSH Cardiac Injury Profile: No results for input(s): CKTOTAL, CKMB, TROPONINI in the last 72 hours. Lipid Profile: No results found for: TRIG, HDL, LDLCALC, CHOL EKG: See Report Telemetry Reviewed: A sensed, V paced Echo: See Report IMPRESSIONS/RECOMMENDATIONS: Megan Nascimento is a 80 y.o. male with a PMHx of HFrEF/NI-DCM (EF 14%), non- Hodgkins lymphoma (s/pchemotherapy), PE/DVT (dx in [place], on [facility]), LBBB, CKD who underwent 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 placement yesterday and heart failure service is consulted for transient hypotension post-op, found to be in decompensated HF. // HFrEF/NI-DCM (EF 14%), Stage C, FC III with decompensation - s/p 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 for LBBB // Transient hypotension - possibly on too high of a dose of Entresto - Will re-bolus with IV lasix 80mg bolus followed by gtt at 10mg/hr (gtt was accidentally held overnight) - GDMT: Decreased home Entresto to low dose yday, continue home Toprol 100mg QD - Strict I/Os, daily weights - Daily BMP, Mg - Keep K>4, Mg>2 // GABI on CKD - likely obstructive uropathy - Creatinine continues to rise with overnight bladder scan showing severe retention - Cortés catheter for now - Continue home Flomax for BPH Natan Vicente Cardiovascular Disease Fellow PGY-IV Electronicallysigned by Natan Vicente MD on 09/13/2020 at 2:20 PM Associated attestation - Lisa Lindsye MD - 09/13/2020 3:53 PM EST I, Dr. Lisa Lindsey, saw and evaluated the patient on 09/13/2020. I personally obtained the velazquez and critical portions of the history and physical exam. I reviewed the chart, the fellow's documentation, and discussed the patient with the fellow. I agree with the fellow's medical decision making and have edited the note to reflect my clinical findings and my assessment and plan. In summary, Megan Nascimento is an 80 yo M s/p 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 for HFrEF (LVEF 14%), LBBB, had transient hypotension with briefly elevated lactate. Unclear precipitant. He does report that he has bene having lower BP since increasing his dose of Entresto. On exam he appears volume up with significant JVP of >15 mmHg and LE edema. - Continue decreased Entresto back to low dose, 24/26 mmHg - Continue Lasix gtt at 10 mg/hr - Strict I/Os --> patient with urinary retention of >500 mL today, placed cortés catheter. Will need voiding trials vs. Going home with cortés and and follow up in clinic. Continue Flomax - Follow up Cr trend tomorrow now that urine is not obstructed HF will follow up response tomorrow. Lisa Lindsey MD Department of Cardiovascular Disease, Division of Heart Failure [facility] [place] 3:48 PM 09/13/20 * Jaylin Irvin DTR - 09/13/2020 10:01 AM EST Nutrition rescreen completed. Chart reviewed. Patient to be monitored and followed by the diet paintless dent repair technician. \ * Gibson Dugan APRN - MARINE OILER - 09/13/2020 7:50 AM EST CARDIOLOGY PROGRESS NOTE Chart and interval events reviewed. Reason for Visit s/p 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 SUBJECTIVE: Megan Nascimento states left shoulder pain and resolved with tylenol. He slept well overnight. Denies chest pain, dizziness, lightheadedness, fevers or chills. SCHEDULED MEDICATIONS: sacubitril-valsartan 1 tablet Oral BID [MAR Hold] sodium chloride flush 10 mL Intravenous 2 times per day sodium chloride flush 10 mL Intravenous 2 times per day Vitamin D 1,000 Units Oral Daily ferrous sulfate 325 mg Oral BID gabapentin 600 mg Oral BID metoprolol succinate 100 mg Oral Daily therapeutic multivitamin-minerals 1 tablet Oral Daily pantoprazole 40 mg Oral Daily tamsulosin 0.4 mg Oral Daily vitamin B-12 1,000 mcg Oral Daily Active Problems: Left bundle branch block Chronic systolic heart failure (HCC) Resolved Problems: * No resolved hospital problems. * Review of Systems: Review of Systems Constitutional: Negative for chills, fatigue and fever. Eyes: Negative for visual disturbance. Respiratory: Negative for shortness of breath. Cardiovascular: Positive for leg swelling. Negative for chest pain and palpitations. Gastrointestinal: Negative for abdominal distention and abdominal pain. Neurological: Negative for dizziness, syncope and light-headedness. Psychiatric/Behavioral: Negative for agitation, confusion and sleep disturbance. VITAL SIGNS: Vitals: 09/12/20 1550 09/12/20 1645 09/12/20 2345 09/13/20 0340 BP: 108/70 (!) 99/51 108/82 Pulse: 94 84 86 Resp: 14 14 16 Temp: 96.9 F (36.1 C) 97.8 F (36.6 C) 96.4 F (35.8 C) TempSrc: Temporal Temporal Temporal SpO2: 97% 94% 93% Weight: 187 lb (84.8 kg) Height: 5' 7 (1.702 m) Intake/Output Summary (Last 24 hours) at 09/13/2020 0750 Last data filed at 09/12/2020 2137 Gross per 24 hour Intake Output 365 ml Net -365 ml Patient Vitals for the past 96 hrs (Last 3 readings): Weight 09/12/20 1645 187 lb (84.8 kg) 09/11/20 1121 187 lb (84.8 kg) Physical Exam: Physical Exam Constitutional: General: He is not in acute distress. Appearance: Normal appearance. He is obese. He is not ill-appearing. Eyes: General: No scleral icterus. Right eye: No discharge. Left eye: No discharge. Neck: Musculoskeletal: Normal range of motion and neck supple. Vascular: JVD present. Cardiovascular: Rate and Rhythm: Normal rate and regular rhythm. Heart sounds: No murmur. Abdominal: General: Bowel sounds are normal. There is no distension. Palpations: Abdomen is soft. Tenderness: There is no abdominal tenderness. Musculoskeletal: Right lower leg: Edema present. Left lower leg: Edema present. Neurological: Mental Status: He is alert and oriented to person, place, and time. Psychiatric: Mood and Affect: Mood normal. Behavior: Behavior normal. Thought Content: Thought content normal. Data: Scheduled Meds: Reviewed Continuous Infusions: furosemide (LASIX) 1mg/ml infusion 10 mg/hr (09/12/201856) [MAR Hold] sodium chloride CBC: Recent Labs 09/12/20 0030 WBC 3.9 HGB 10.2* HCT 33.1* PLT 276 BMP: Recent Labs 09/12/20 0030 09/13/20 0351 NA 137 134* K 3.6 4.1 CL 97* 95* CO2 26 27 BUN 40* 47* CREATININE 2.56* 3.08* INR:No results for input(s): INR in the last 72 hours. No results for input(s): BNP in the last 72 hours. TSH: No results found for: TSH Cardiac Injury Profile: No results for input(s): CKTOTAL, CKMB, TROPONINI in the last 72 hours. Lipid Profile: No results found for: TRIG, HDL, LDLCALC, CHOL EKG: See Report Telemetry Reviewed: V- Paced 80s No events X 24 hours Echo: See Report Last Echo: 08/23/2020 1. Left ventricle: Systolic function is by the biplane method of disks. The estimated ejection fraction is 14%. Severe diffuse hypokinesis with regional variations. Unable to assess LV diastolic function due to severe mitral regurgitation 2. Right ventricle: The cavity size is moderately dilated. Systolic function is mildly decreased by visual assessment. 3. Left atrium: The atrium is severely dilated. 4. Right atrium: The atrium is severely dilated. 5. Mitral valve: There is moderate-severe, 3+ regurgitation, directed eccentrically and toward the septum. ERO: 0.06 cm^2. 6. Aortic valve: Mildly thickened, mildly calcified leaflets. There is mild-moderate, 1-2+ regurgitation. 7. Tricuspid valve: There is moderate-severe, 3+ regurgitation. The effective regurgitant orifice (PISA) is 0.2 cm^2. 8. Aorta: The aorta is poorly visualized and moderately dilated. The ascending aorta maximal dimension is 4.2 cm. 9. Pericardium, extracardiac: There is no pericardial effusion. There is a right pleural effusion. 10. Pulmonary arteries: Systolic pressure is moderately increased, estimated to be 55 mm Hg. 11. Inferior vena cava: The vessel is dilated. The IVC collapses by less than 50% with inspiration. Last cardiac catheterization: 04/2019 No significant disease IMPRESSIONS/RECOMMENDATIONS: Chronic Systolic Heart Failure: LBBB: Status post 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 implant 09/11/[address] Gates[address] HF team following and was on lasix gtt overnight. Continue daily weights and I&Os. I&Os inaccurate. Will discharge once HF team agrees. Appreciate their input. Follow up two weeks device clinic and three months with Dr Gates. Electronicallysigned by CHLOE Cain CNP on 09/13/2020 at 7:50 AM * Gibson Dugan APRN - CNP - 09/12/2020 10:00 AM EST CARDIOLOGY PROGRESS NOTE Chart and interval events reviewed. Reason for Visit s/p 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 SUBJECTIVE: Megan Higuera Azam states soreness at device site, LE edema ongoing for two months and dry cough. Denies chest pain, sob or palpitations. SCHEDULED MEDICATIONS: [SEP Hold] sodium chloride flush 10 mL Intravenous 2 times per day sodium chloride flush 10 mL Intravenous 2 times per day Vitamin D 1,000 Units Oral Daily ferrous sulfate 325 mg Oral BID furosemide 80 mg Oral BID gabapentin 600 mg Oral BID metoprolol succinate 100 mg Oral Daily therapeutic multivitamin-minerals 1 tablet Oral Daily pantoprazole 40 mg Oral Daily sacubitril-valsartan 1 tablet Oral BID tamsulosin 0.4 mg Oral Daily vitamin B-12 1,000 mcg Oral Daily Active Problems: Left bundle branch block Chronic systolic heart failure (HCC) Resolved Problems: * No resolved hospital problems. * Review of Systems: Review of Systems Constitutional: Negative for chills, fatigue and fever. Respiratory: Positive for cough (Dry). Negative for wheezing. Cardiovascular: Positive for leg swelling. Negative for chest pain. Gastrointestinal: Negative for abdominal distention and abdominal pain. Musculoskeletal: Positive for arthralgias. Neurological: Negative for dizziness, syncope and light-headedness. Psychiatric/Behavioral: Negative for agitation and confusion. VITAL SIGNS: Vitals: 09/12/20 0700 09/12/20 0705 09/12/20 0800 09/12/20 0900 BP: 124/85 124/85 102/61 96/60 Pulse: 89 90 82 84 Resp: 19 16 15 19 Temp: 97.2 F (36.2 C) TempSrc: Temporal SpO2: 98% 100% 96% 100% Weight: Height: Intake/Output Summary (Last 24 hours) at 09/12/2020 1001 Last data filed at 09/12/2020 0619 Gross per 24 hour Intake 950 ml Output 50 ml Net 900 ml Patient Vitals for the past 96 hrs (Last 3 readings): Weight 09/11/20 1121 187 lb (84.8 kg) Physical Exam: Physical Exam Constitutional: General: He is not in acute distress. Appearance: Normal appearance. He is not ill-appearing. HENT: Head: Normocephalic. Eyes: General: No scleral icterus. Right eye: No discharge. Left eye: No discharge. Neck: Vascular: JVD present. Cardiovascular: Rate and Rhythm: Normal rate and regular rhythm. Pulmonary: Effort: Pulmonary effort is normal. No respiratory distress. Breath sounds: No wheezing. Abdominal: General: There is no distension. Tenderness: There is no abdominal tenderness. Musculoskeletal: Right lower leg: Edema (+2 Pitting ) present. Left lower leg: Edema (2 Pitting ) present. Skin: Neurological: Mental Status: He is alert and oriented to person, place, and time. Psychiatric: Mood and Affect: Mood normal. Behavior: Behavior normal. Data: Scheduled Meds: Reviewed Continuous Infusions: [MAR Hold] sodium chloride CBC: Recent Labs 09/12/2029 WBC 3.9 HGB 10.2* HCT 33.1* PLT 276 BMP: Recent Labs 09/12/2029 NA 137 K 3.6 CL 97* CO2 26 BUN 40* CREATININE 2.56* INR:No results for input(s): INR in the last 72 hours. No results for input(s): BNP in the last 72 hours. TSH: No results found for: TSH Cardiac Injury Profile: No results for input(s): CKTOTAL, CKMB, TROPONINI in the last 72 hours. Lipid Profile: No results found for: TRIG, HDL, LDLCALC, CHOL EKG: See Report Telemetry Reviewed: V Paced 70-90s Echo: See Report IMPRESSIONS/RECOMMENDATIONS: Chronic Systolic Heart Failure: NYHA Class III. S/p [facility] [employer] Compatible 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 Implant. Device teaching done and booklet given. Device check normal Function. CXR Good lead placement and no pneumothorax. HF Consult today. Electronicallysigned by CHLOE Cain CNP on 09/12/2020 at 10:01 AM * Mackenzie Bridges MD - 09/12/2020 4:29 AM EST I was asked by the nurse to assess Mr. Nascimento for hypotension 76/42 (52) mmHg. I saw and examined the patient at bedside and at that time, his BP had improved to 99/66 mmHg on its own. He denies chest pain, shortness of breath, lighteadedness or palpitations.Physical exam revealed elevated JVD's, bilateral pitting LE edema, intact pacemajer pocket with dressing on top and no hematoma. Patient is warm and wet. Labs obtained showed stable hemoglobin at 10 g/dL, elevated creatinine at 2.5, and elevated lactic acid of 2.8. Bedside echo revealed no pericardial effusion, severely decreased LV function EF < 20%, moderate-severe MR, moderate-severe TR, dilated non-collapsible IVC. Pacer wire in RV. A/P: 80 year old with HFrEF, BiV failure, sp 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 yesterday had transient hypotension overnight. - Patient's blood pressure has normalized. He is asymptomatic. He is warm and well perfused. - Lactic acid has been improving. I suspect this increase is due to transient hypotension and its clearance is affected by poor kidney function. Continue trending until normal - No pericardial effusion to suggest acute procedure complication - Patient is warm and wet. Recommend HF consult for management of volume status and possible IV Lasix. Will hold off IV Lasix tonight in the setting of hypotension. - Will relay these concerns to EP team in AM. Patient was discussed with the attending, Dr. Les Kinney who is in agreement. Car Unloader, PGY-6 Pager [phone] * Rena Lagos RPH - 09/11/2020 5:56 PM EST Megan Nascimento was ordered CoQ-10. Per [facility] Policy #4005, herbals and certain dietary supplements are automatically discontinued for the duration of the hospital stay. The product remains on the Home Medication List for resumption at discharge unless specifically discontinued by the prescriber. If there is a need for acute treatment using this agent, please contact the pharmacy for further assistance. Rena Lagos RPh documented in this encounter* Saira Espinoza, BOOK TRIMMER - 09/26/2020 11:19 AM EST [facility] Respiratory Care Department Progress Note SpO2 at rest on RA = 96 HR at rest = 101 SpO2 with ambulation on RA = 88 Peak HR = 106 Distance Walked = 100 feet Recovery SpO2 with ambulation = 96 Recovery HR = 100 Recovery SpO2 with lpm with ambulation (if needed) = 2 Qualify for home O2 Y/N = Yes Patient mobile at home Y/N = Yes * Saira Mark, ADRIA, LD - 09/25/2020 3:43 PM EST Comprehensive Nutrition Assessment Type and Reason for Visit: Reassess(pt sleeping very soundly- unable to awaken. per nursing records- eatintg well) Nutrition Recommendations/Plan: 1)suggest to continue cardiac diet Per medical condition- pt very fatiqued- was unable to awaken him from sleep to Interview. 2)will review cardiac - low sodium diet upon request as needed. Has written information. 3)Please document PO intakes consistently in the flowsheet to better assess intake adequacy. Intakes appear adequate at this time 4)Monitor labs, status, intakes, weights to reassess. Follow up at least weekly Nutrition Assessment: PER MD-80 y.o. male with a past medical history significant for NICM HFrEF 14%, 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, LBBB, +3 MR/TR, non-Hodgkins lymphoma (s/p chemotherapy), bladder cancer, BPH, [facility] [place] and CKD. PT HAD on [id number]+ BLLE up to his hips. He is up 8lbs s george discharge. He states that he does abide by a low sodium diet, and the 64 ounce fluid restriction. His main concern is getting his gallbladder out as he has a lot of pain and diarrhea(ef 14%) Malnutrition Assessment: Malnutrition Status: Insufficient data Context: Acute Illness Estimated Daily Nutrient Needs: Energy (kcal): 4926-9658; Weight Used for Energy Requirements: [place] Protein (g): 54- 67; Weight Used for Protein Requirements: [place](.8-1) Fluid (ml/day): Per MD recommendations; Method Used for Fluid Requirements: Nutrition Related Findings: on fe, lasix, k, mvi,b12, vit d- neg 6.6 liters since admissionLoss of 19 lbs),+1 pitting edema ble, +1 general edema- gfr 28.3, glu 126, 3.2 being replaced- still with diarrhea- related to gb issue Wounds: None(simon 17) Current Nutrition Therapies: DIET CARDIAC; Low Sodium (2 GM) Anthropometric Measures: Height: 5' 7 (170.2 cm) Current Body Weight: 176 lb (79.8 kg) Admission Body Weight: 195 lb (88.5 kg)(standing scale) Usual Body Weight: [place] Body Weight: 148 lbs; % [place] Body Weight 118.9 % BMI: 27.6 Adjusted Body Weight: ; No Adjustment Adjusted BMI: BMI Categories: Overweight (BMI 25.0-29.9) Nutrition Diagnosis: Altered nutrition-related lab values related to acute injury/trauma, renal dysfunction as evidencedby lab values (Unintentional weight gain) related to cardiac dysfunction as evidenced by (+8 pounds since discharge (09/15/20); +2 BLE pitting edema; increased SOB) Nutrition Interventions: Food and/or Nutrient Delivery: Continue Current Diet Nutrition Education/Counseling: Education initiated(on admission-review as needed- pt very fatigued) Coordination of Nutrition Care: Continue to monitor while inpatient, Feeding Assistance/EnvironmentChange Goals: Pt will meet 80-100% of estimated energy/protein needs through meals. Pt's labs will trend toward baseline Nutrition Monitoring and Evaluation: Behavioral-Environmental Outcomes: None Identified Food/Nutrient Intake Outcomes: Food and Nutrient Intake Physical Signs/Symptoms Outcomes: Biochemical Data, Diarrhea, GI Status, Fluid Status or Edema, Hemodynamic Status, Meal Time Behavior, Nutrition Focused Physical Findings, Skin, Weight Discharge Planning: Continue current diet Contact: [phone] * Renée Moreira OT - 09/25/2020 10:43 AM EST Occupational Therapy Facility/Department: [facility] Daily Treatment Note NAME: Megan Nascimento : 1940 Date of Service: 09/25/2020 Pt's chart reviewed. Per RN, pt ok to see. Pt in bed on arrival, declining to participate in OOB OTtx at this time d/t current upset stomach, requesting to remain in bed but agreeable to participateat a later time once feeling improved. Will continue to follow and re-attempt as schedule permits. Returned back in PM. Pt continues to decline OOB tx at this time d/t just recently ordering lunch, requesting to eat prior to OOB activity. Will continue to follow and re-attempt as schedule permits. Renée Moreira OT * Dat Angel, DO - 09/25/2020 10:36 AM EST Images from the original note were not included. Hospitalist Progress Note 09/25/2020 10:36 AM [phone]: Please page me ([phone]) for patient care issues. [phone]: Please page [facility] night Hospitalist for any issues. Subjective: Admit Date: 09/21/2020 PCP: RIGOBERTO DURAND MD Room#: 232/2324 Interval History: No overnight issues. Feeling better. Denies chest pain, sob, abdominal pain, nausea, vomiting, diarrhea, constipation, fevers, or chills. DIET CARDIAC; Low Sodium (2 GM) Patient Vitals for the past 96 hrs (Last 3 readings): Weight 09/25/20 0515 176 lb (79.8 kg) 09/24/20 0500 182 lb 6.4 oz (82.7 kg) 09/22/20 0700 191 lb (86.6 kg) 24HR INTAKE/OUTPUT: Intake/Output Summary (Last 24 hours) at 09/25/2020 1036 Last data filed at 09/25/2020 0803 Gross per 24 hour Intake 1107 ml Output 3450 ml Net -2343 ml Past Medical History: Diagnosis Date Bladder cancer (HCC) DM (diabetes mellitus) (HCC) DM (diabetes mellitus) (HCC) DVT (deep venous thrombosis) (HCC) ED (erectile dysfunction) Follicular non-Hodgkin's lymphoma (HCC) GERD (gastroesophageal reflux disease) GERD (gastroesophageal reflux disease) HTN (hypertension) HTN (hypertension) Hyperlipidemia Non-ischemic cardiomyopathy (HCC) PUD (peptic ulcer disease) Pulmonary embolism (HCC) Pulmonary fibrosis (HCC) Rosacea Tachycardia Medications: torsemide 100 mg Oral Daily potassium chloride 20 mEq Oral TID WC sacubitril-valsartan 1 tablet Oral BID apixaban 2.5 mg Oral BID ferrous sulfate 325 mg Oral BID WC metoprolol succinate 100 mg Oral Daily gabapentin 400 mg Oral BID tamsulosin 0.4 mg Oral Daily pantoprazole 40 mg Oral QAM AC therapeutic multivitamin-minerals 1 tablet Oral Daily vitamin B-12 1,000 mcg Oral Daily vitamin D3 1,000 Units Oral Daily LABS: CBC: Recent Labs 09/23/2041309/24/2032709/25/20 0340 WBC 5.9 5.7 5.3 RBC 4.14* 3.91* 4.16* HGB 11.0* 10.3* 11.1* HCT 34.2* 32.6* 35.0* MCV 82.6 83.4 84.2 RDW 33.2* 33.7* 33.5* PLT 245 230 223 BMP: Recent Labs 09/23/2041309/24/2032709/25/20 0340 NA 137 136 136 K 3.5 3.2* 3.2* CL 97* 94* 95* CO2 30 34* 34* BUN 42* 42* 38* CREATININE 2.38* 2.23* 2.12* GLUCOSE 110* 111* 126* CALCIUM 9.0 8.9 9.0 ANIONGAP 10 8 7 LIVER PROFILE: Recent Labs 09/23/20413 AST 56* ALT 27 BILITOT 1.9* ALKPHOS 104 LABALBU 3.6 PROT 6.6 PT/INR: No results for input(s): PROTIME, INR in the last 72 hours. CARDIAC ENZYMES: No results for input(s): TROPONINI in the last 72 hours. Procalcitonin: No results found for: PROCAL COVID-19 PCR: No results for input(s): COVID19 in the last 72 hours. Objective: Vitals: BP (!) 126/91 Pulse 99 Temp 97.5 F (36.4 C) (Oral) Resp 16 Ht 5' 7 (1.702 m) Wt 176 lb (79.8 kg) SpO2 100% BMI 27.57 kg/m Pulse Ox: SpO2 Av.9 % Min: 84 % Max: 100 % Supplemental O2: O2 Flow Rate (L/min): 3 L/min General appearance: No apparent distress, appears stated age and cooperative with exam HEENT: Normal cephalic, atraumatic without obvious deformity. Pupils equal, round, and reactive to light. Extra ocular muscles intact. Conjunctivae/corneas clear. Neck: Supple, with full range of motion. No jugular venous distention. Trachea midline. No lymphadenopathy. Respiratory: Normal respiratory effort. Clear to auscultation, bilaterally without Rales/Wheezes/Rhonchi. Cardiovascular: Regular rate and rhythm with normal S1/S2 without murmurs, rubs or gallops. Abdomen: Soft, non-tender, non-distended with normal bowel sounds. No rebound or guarding. Musculoskeletal: Trace bilateral LE edema Skin: Skin color, texture, turgor normal. No rashes or lesions. Neurologic: Neurovascularly intact without any focal sensory/motor deficits. Cranial nerves: II-XIIintact, grossly non-focal. Assessment 1. HFrEF exacerbation 2. S/p 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 placement 09/11/20 3. 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 HTN 5. 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 Hypokalemia 8. BPH 9. Anemia 10. Obesity Plan -telemetry monitoring, daily weights, I&Os, changed to PO diuresis today per cards -nephrology following -dc cortés -am labs, replace lytes prn -increase activity/PT/OT -DVT prophylaxis: [x] Lovenox [] Heparin [] SCDs [x] Encourage ambulation [] Already on Anticoagulation Advance Directive: Prior Discharge planning: TBD Dat Angel DO Division of Hospitalist Medicine Inpatient Medical Services PAGER: [phone] * Ralph Roth MD - 09/25/2020 9:42 AM EST CARDIOLOGY PROGRESS NOTE Chart and interval events reviewed. SUBJECTIVE: Megan Nascimento states that he is much better, no symptoms at rest other than loose stool SCHEDULED MEDICATIONS: potassium chloride 20 mEq Oral TID WC metOLazone 5 mg Oral Daily sacubitril-valsartan 1 tablet Oral BID apixaban 2.5 mg Oral BID ferrous sulfate 325 mg Oral BID WC metoprolol succinate 100 mg Oral Daily gabapentin 400 mg Oral BID tamsulosin 0.4 mg Oral Daily pantoprazole 40 mg Oral QAM AC therapeutic multivitamin-minerals 1 tablet Oral Daily vitamin B-12 1,000 mcg Oral Daily vitamin D3 1,000 Units Oral Daily REVIEW OF SYSTEMS: General ROS:no fever Respiratory ROS: no - shortness of breath Cardiovascular ROS: no chest pain Gastrointestinal ROS: no abdominal pain, loose stool VITAL SIGNS: BP (!) 126/91 Pulse 99 Temp 97.5 F (36.4 C) (Oral) Resp 16 Ht 5' 7 (1.702 m) Wt 176 lb (79.8 kg) SpO2 100% BMI 27.57 kg/m Patient Vitals for the past 96 hrs (Last 3 readings): Weight 09/25/20 0515 176 lb (79.8 kg) 09/24/20 0500 182 lb 6.4 oz (82.7 kg) 09/22/20 0700 191 lb (86.6 kg) PHYSICAL EXAMINATION: General appearance: well nourished, alert, no acute distress HENT: Mucous membranes moist. Neck supple, no bruits, no JVD Lungs: Lungs to auscultation bilaterally. No retractions or use of accessory muscles. No ronchi, rales. Heart: normal S1 and S2, no S3, no murmur, gallop or rub Extremities: mild pretibial edema. No cyanosis or clubbing noted to the nails. Neuro: Alert and oriented to person, place and time. Data: Scheduled Meds: Reviewed Continuous Infusions: furosemide (LASIX) infusion 10 mg/hr (09/24/20 0552) Intake/Output Summary (Last 24 hours) at 09/25/2020 0943 Last data filed at 09/25/2020 0803 Gross per 24 hour Intake 1107 ml Output 3450 ml Net -2343 ml CBC: Recent Labs 09/24/20 0328 09/25/20 0340 WBC 5.7 5.3 HGB 10.3* 11.1* HCT 32.6* 35.0* PLT 230 223 BMP: Recent Labs 09/24/20 0328 09/25/20 0340 NA 136 136 K 3.2* 3.2* CL 94* 95* CO2 34* 34* BUN 42* 38* CREATININE 2.23* 2.12* ABGs: No results found for: PH, PO2, PCO2 INR: No results for input(s): INR in the last 72 hours. TSH: No results found for: TSH Hemoglobin A1C: No components found for: HGBA1C Lipid Profile: No results found for: TRIG, HDL, LDLCALC, CHOL Lab Results Component Value Date NTPROBNP 30,786 (H) 09/24/2020 NTPROBNP 33,240 (H) 09/21/2020 Cardiac Injury Profile: No results found for: CKTOTAL, CKMB, CKMBINDEX TROPONIN: No results found for: TROPONINI EKG: Done , personally reviewed:Sinus, atrial sensing ventricular pacing TELE. Personally reviewed: Echo: See Report IMPRESSIONS: Active Problems: Acute HFrEF (heart failure with reduced ejection fraction) (HCC) Acute on chronic clinical systolic heart failure (HCC) Resolved Problems: * No resolved hospital problems. * RECOMMENDATIONS: His HFrEF is improved, marked diuresis without a significant change in renal failure; hopefully CRTis starting to improve LV function. We will switch to oral diuretics today and home tomorrow or Friday if all goes well. Ralph Roth MD * Kashmir Nunez MD - 09/25/2020 5:24 AM EST [facility] Progress Note Subjective/ 80 y.o. year old male who we are seeing in consultation for GABI on CKD. PO intake okay. BP stable. Good urine output. Breathing stable. Weights declining with diuresis as expected. ROS otherwise negative. No change in pfsh. Objective/ Vitals: 09/25/20 0301 09/25/20 0401 09/25/20 0515 09/25/20 0516 BP: 135/83 130/86 124/77 Pulse: 90 86 95 Resp: 16 Temp: 97.5 F (36.4 C) TempSrc: Oral SpO2: 100% 99% Weight: 176 lb (79.8 kg) Height: 24HR INTAKE/OUTPUT: Intake/Output Summary (Last 24 hours) at 09/25/2020 0524 Last data filed at 09/25/2020 0350 Gross per 24 hour Intake 1817 ml Output 3400 ml Net -1583 ml Constitutional: Alert, awake, no apparent distress Head: AT NC Neck: No JVD, no thyromegaly Cardiovascular: S1, S2 without m/r/g Respiratory: Right side crackles, without w/r/r Abdomen: soft, nt Ext: 1+ B/L pitting LE edema most above knee, no tremor. Current Facility-Administered Medications Medication Dose Route Frequency Provider Last Rate Last Admin potassium bicarbonate (K-LYTE) disintegrating tablet 50 mEq 50 mEq Oral Once Aftab Anna MD potassium chloride (KLOR-CON M) extended release tablet 20 mEq 20 mEq Oral TID Les Jama MD 20 mEq at 09/24/20 1739 acetaminophen (TYLENOL) tablet 650 mg 650 mg Oral Q4H PRN Dat Angel DO 650 mg at 09/24/20 1323 aluminum & magnesium hydroxide-simethicone (MAALOX) 200-200-20 MG/5ML suspension 30 mL 30 mL Oral Q6H PRN Chiquis Camp MD 30 mL at 09/24/20 1542 metOLazone (ZAROXOLYN) tablet 5 mg 5 mg Oral Daily Mauro Padgett MD 5 mg at 09/24/20 0757 furosemide (LASIX) 500 mg in dextrose 5 % 100 mL infusion 10 mg/hr Intravenous Continuous CHLOE Disla CNP 2 mL/hr at 09/24/20 0552 10 mg/hr at 09/24/20 0552 albuterol (PROVENTIL) nebulizer solution 1.25 mg 1.25 mg Nebulization Q6H PRN Mauro Padgett MD 1.25 mg at 09/24/20 0518 sacubitril-valsartan (ENTRESTO) 24-26 MG per tablet 1 tablet 1 tablet Oral BID CHLOE Ch CNP 1 tablet at 09/24/202000 apixaban (ELIQUIS) tablet 2.5 mg 2.5 mg Oral BID CHLOE Ch CNP 2.5 mg at 09/24/202000 ferrous sulfate (IRON 325) tablet 325 mg 325 mg Oral BID CHLOE Ch CNP 325 mg at 09/24/20 1739 metoprolol succinate (TOPROL XL) extended release tablet 100 mg 100 mg Oral Daily CHLOE Ch CNP 100 mg at 09/24/20 0757 gabapentin (NEURONTIN) capsule 400 mg 400 mg Oral BID CHLOE Ch CNP 400 mg at 09/24/202000 tamsulosin (FLOMAX) capsule 0.4 mg 0.4 mg Oral Daily CHLOE Ch CNP 0.4 mg at 09/24/20 075 pantoprazole (PROTONIX) tablet 40 mg 40 mg Oral QAM AC Petra Renteria APRN - MARIIA 40 mg at 09/25/20 0518 therapeutic multivitamin-minerals 1 tablet 1 tablet Oral Daily Petra Renteria APRN - [employer] 1 tablet at 09/24/20 075 vitamin B-12 (CYANOCOBALAMIN) tablet 1,000 mcg 1,000 mcg Oral Daily CHLOE Ch CNP 1,000 mcg at 09/24/20 075 Vitamin D (CHOLECALCIFEROL) tablet 1,000 Units 1,000 Units Oral Daily Petra Renteria APRN - [employer] 1,000 Units at 09/24/20 0758 furosemide (LASIX) infusion 10 mg/hr (09/24/20 0552) Data/ Recent Labs 09/23/20 0414 09/24/20 0328 WBC 5.9 5.7 HGB 11.0* 10.3* HCT 34.2* 32.6* MCV 82.6 83.4 PLT 245 230 Recent Labs 09/23/20 0414 09/24/20 0328 09/25/20 0340 NA 137 136 136 K 3.5 3.2* 3.2* CL 97* 94* 95* CO2 30 34* 34* GLUCOSE 110* 111* 126* MG 2.0 1.8 1.7 BUN 42* 42* 38* CREATININE 2.38* 2.23* 2.12* Assessment/ 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 BPH Plan/ Volume status is improving. Diuresis changed to po per cardiology. Defer diuresis to them. Renal function has tolerated heavy diuresis well. Noted the bicarb level Daily standing weights to continue. Wt is 176# today Hb at goal Can d/c cortés catheter from my side. Avoid I/V contrast. Will follow. D/w RN. * Kashmir Nunez MD - 09/24/2020 5:36 PM EST [facility] Progress Note Subjective/ 80 y.o. year old male who we are seeing in consultation for GABI on CKD. PO intake okay. BP stable. Good urine output. Breathing stable. Weights declining with diuresis as expected. ROS otherwise negative. No change in pfsh. Objective/ Vitals: 09/24/20 1340 09/24/20 1400 09/24/20 1500 09/24/20 1600 BP: 117/68 117/81 112/68 127/80 Pulse: 89 81 84 80 Resp: 18 Temp: 98.1 F (36.7 C) TempSrc: Oral SpO2: 100% 100% Weight: Height: 24HR INTAKE/OUTPUT: Intake/Output Summary (Last 24 hours) at 09/24/2020 1736 Last data filed at 09/24/2020 1400 Gross per 24 hour Intake 2224 ml Output 3765 ml Net -1541 ml Constitutional: Alert, awake, no apparent distress Head: AT NC Neck: No JVD, no thyromegaly Cardiovascular: S1, S2 without m/r/g Respiratory: CTA B without w/r/r Abdomen: soft, nt Ext: 1+ B/L pitting LE edema, no tremor. Current Facility-Administered Medications Medication Dose Route Frequency Provider Last Rate Last Admin potassium chloride (KLOR-CON M) extended release tablet 20 mEq 20 mEq Oral TID WC Les Jama MD acetaminophen (TYLENOL) tablet 650 mg 650 mg Oral Q4H PRN Dat Angel DO 650 mg at 09/24/20 1323 aluminum & magnesium hydroxide-simethicone (MAALOX) 200-200-20 MG/5ML suspension 30 mL 30 mL Oral Q6H PRN Chiquis Camp MD 30 mL at 09/24/20 1542 metOLazone (ZAROXOLYN) tablet 5 mg 5 mg Oral Daily Mauro Padgett MD 5 mg at 09/24/20 075 furosemide (LASIX) 500 mg in dextrose 5 % 100 mL infusion 10 mg/hr Intravenous Continuous CHLOE Disla CNP 2 mL/hr at 09/24/20 0552 10 mg/hr at 09/24/20 0552 albuterol (PROVENTIL) nebulizer solution 1.25 mg 1.25 mg Nebulization Q6H PRN Mauro Padgett MD 1.25 mg at 09/24/20 0518 sacubitril-valsartan (ENTRESTO) 24-26 MG per tablet 1 tablet 1 tablet Oral BID CHLOE Ch CNP 1 tablet at 09/24/20 075 apixaban (ELIQUIS) tablet 2.5 mg 2.5 mg Oral BID CHLOE Ch CNP 2.5 mg at 09/24/20 075 ferrous sulfate (IRON 325) tablet 325 mg 325 mg Oral BID WC CHLOE Ch CNP 325 mg at 09/24/20 075 metoprolol succinate (TOPROL XL) extended release tablet 100 mg 100 mg Oral Daily CHLOE Ch CNP 100 mg at 09/24/20 075 gabapentin (NEURONTIN) capsule 400 mg 400 mg Oral BID CHLOE Ch CNP 400 mg at 09/24/20 075 tamsulosin (FLOMAX) capsule 0.4 mg 0.4 mg Oral Daily CHLOE Ch CNP 0.4 mg at 09/24/20 075 pantoprazole (PROTONIX) tablet 40 mg 40 mg Oral QAM AC CHLOE Ch CNP 40 mg at 09/24/20 0501 therapeutic multivitamin-minerals 1 tablet 1 tablet Oral Daily CHLOE Ch CNP 1 tablet at 09/24/20 075 vitamin B-12 (CYANOCOBALAMIN) tablet 1,000 mcg 1,000 mcg Oral Daily CHLOE Ch CNP 1,000 mcg at 09/24/20 075 Vitamin D (CHOLECALCIFEROL) tablet 1,000 Units 1,000 Units Oral Daily Petra Renteria, [employer] ENGINEER - [employer] 1,000 Units at 09/24/20 0758 furosemide (LASIX) infusion 10 mg/hr (09/24/20 0552) Data/ Recent Labs 09/22/20 0506 09/23/204 09/24/20 0328 WBC 4.8 5.9 5.7 HGB 10.6* 11.0* 10.3* HCT 33.6* 34.2* 32.6* MCV 82.9 82.6 83.4 PLT 207 245 230 Recent Labs 09/22/20 0506 09/23/20 0414 09/24/20 0328 NA 139 137 136 K 3.8 3.5 3.2* CL 102 97* 94* CO2 26 30 34* GLUCOSE 99 110* 111* MG 1.5* 2.0 1.8 BUN 38* 42* 42* CREATININE 2.24* 2.38* 2.23* Assessment/ 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 BPH Plan/ C/W IV diuresis at this point. Some cr spike will have to be tolerated to keep out of CHF. Noted cardiology recs. Volume status is improving. Defer diuresis to cardiology at this point. Daily standing weights to continue. Hb at goal Keep cortés catheter. Avoid I/V contrast. Will follow. D/w RN. Kashmir Nunez MD [facility] * Griselda Villatoro, PT - 09/24/2020 11:57 AM EST Physical Therapy Facility/Department: [facility] Initial Assessment NAME: Megan Nascimento : 1940 Date of Service: 09/24/2020 Discharge Recommendations: Home independently PT Equipment Recommendations Equipment Needed: No Assessment Assessment: Independent for bed mobility transfers and MOD I for sit <-> stand and to ambulate 300' with a FWW. Able to ascend/descend 2 steps holding onto bilat HR. No acute PT needs identified. Pt has no concerns for home going. Prognosis: Excellent Decision Making: Low Complexity History: Pt admitted with weakness, fatigue and SOB, found to have HFrEF exacerbation. 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 Exam: AM-PAC PT Education: PT Role;Plan of Care;General Safety Barriers to Learning: none REQUIRES PT FOLLOW UP: No Activity Tolerance Activity Tolerance: Patient Tolerated treatment well Patient Diagnosis(es): There were no encounter diagnoses. has a past medical history of Bladder cancer (HCC), DM (diabetes mellitus) (HCC), DM (diabetes mellitus) (HCC), DVT (deep venous thrombosis) (HCC), ED (erectile dysfunction), Follicular non-Hodgkin'slymphoma (HCC), GERD (gastroesophageal reflux disease), GERD (gastroesophageal reflux disease), HTN (hypertension), HTN (hypertension), Hyperlipidemia, Non-ischemic cardiomyopathy (HCC), PUD (peptic ulcer disease), Pulmonary embolism (HCC), Pulmonary fibrosis (HCC), Rosacea, and Tachycardia. has a past surgical history that includes Septoplasty; Facial cosmetic surgery; bone marrow biopsy;lymph node biopsy; and Ventricular cardiac pacer insertion (09/11/2020). Restrictions Restrictions/Precautions Restrictions/Precautions: General Precautions Required Braces or Orthoses?: No Vision/Hearing Vision: Within Functional Limits Vision Exceptions: Wears glasses for reading Hearing: Within functional limits Subjective General Chart Reviewed: Yes Patient assessed for rehabilitation services?: Yes Family / Caregiver Present: No Follows Commands: Within Functional Limits General Comment Comments: Per RN pt ok for therapy. Subjective Subjective: Pt found in chair and agreeable to therapy. Pain Screening Patient Currently in Pain: Denies Vital Signs Patient Currently in Pain: Denies Orientation Orientation Overall Orientation Status: Within Normal Limits Social/Functional History Social/Functional History Lives With: (ex-) Type of Home: House Home Layout: One level, Laundry in basement Home Access: Stairs to enter with rails Entrance Stairs - Number of Steps: 2 Bathroom Shower/Tub: Tub/Shower unit, Shower chair with back Bathroom Toilet: Standard Bathroom Equipment: Grab bars in shower, Shower chair Bathroom Accessibility: Walker accessible Home Equipment: Cane, 4 wheeled walker(6-wheeled walker) Receives Help From: Family ADL Assistance: Independent Homemaking Assistance: Independent Homemaking Responsibilities: Yes Ambulation Assistance: Independent(typically with no device, sometimes with cane or walker) Transfer Assistance: Independent Active Manager Cancer: Yes Mode of Transportation: SUV Cognition Cognition Overall Cognitive Status: WNL Objective Observation/Palpation Posture: Good Observation: cortés and IV intact AROM LLE (degrees) LLE AROM : WFL Strength RLE Strength RLE: WFL Strength LLE Strength LLE: WFL Sensation Overall Sensation Status: WNL Bed mobility Supine to Sit: Unable to assess;Independent(lying supine in chair) Sit to Supine: Independent Scooting: Independent Transfers Sit to Stand: Modified independent Stand to sit: Modified independent Comment: with FWW Ambulation More Ambulation?: No Ambulation 1 Surface: level tile Device: Rolling Walker Assistance: Modified Independent Gait Deviations: None Distance: 300' Comments: no acute LOB or unsteadiness Stairs/Curb Stairs?: Yes Stairs # Steps : 2 Stairs Height: 6 Rails: Bilateral Assistance: Modified independent Balance Posture: Good Sitting - Static: Good Sitting - Dynamic: Good Standing - Static: Good;- Standing - Dynamic: Good;- Plan Plan Times per week: eval only Plan Comment: Goals and/or treatment plan established in collaboration with patient Safety Devices Type of devices: All fall risk precautions in place, Left in bed, Call light within reach, Gait belt Restraints Initially in place: No OutComes Score AM-PAC Mobility Inpatient How much difficulty turning over in bed?: None How much difficulty sitting down on / standing up from a chair with arms?: None How much difficulty moving from lying on back to sitting on side of bed?: None How much help from another person moving to and from a bed to a chair?: None How much help from another person needed to walk in hospital room?: None How much help from another person for climbing 3-5 steps with a railing?: Total(not assessed) AM-PAC Inpatient Mobility Raw Score : 21 AM-PAC Inpatient T-Scale Score : 50.25 Mobility Inpatient CMS 0-100% Score: 28.97 Mobility Inpatient CMS G-Code Modifier : CJ AM-PAC Score AM-PAC Inpatient Mobility Raw Score : 21 (09/24/201156) AM-PAC Inpatient T-Scale Score : 50.25 (09/24/201156) Mobility Inpatient CMS 0-100% Score: 28.97 (09/24/201156) Mobility Inpatient CMS G-Code Modifier : CJ (03/07/21 1157) Therapy Time Individual Concurrent Group Co-treatment Time In 1014 Time Out 1037 Minutes 23 Timed Code Treatment Minutes: 8 Minutes(1 gait) Patient's physical therapy plan of care supervision is transferred to Inpatient Therapy Services Department physical therapist. Griselda Villatoro PT * Les Jama MD - 09/24/2020 7:59 AM EST CARDIOLOGY PROGRESS NOTE Chart and interval events reviewed. Reason for Visit CHF f/u SUBJECTIVE: Megan Nascimento states he feels less SOB and his legs feel less swollen this am. Complains that his legs feel itchy this am. Denies chest discomfort or palpitations. SCHEDULED MEDICATIONS: potassium chloride 20 mEq Oral BID WC metOLazone 5 mg Oral Daily sacubitril-valsartan 1 tablet Oral BID apixaban 2.5 mg Oral BID ferrous sulfate 325 mg Oral BID WC metoprolol succinate 100 mg Oral Daily gabapentin 400 mg Oral BID tamsulosin 0.4 mg Oral Daily pantoprazole 40 mg Oral QAM AC therapeutic multivitamin-minerals 1 tablet Oral Daily vitamin B-12 1,000 mcg Oral Daily vitamin D3 1,000 Units Oral Daily Active Problems: Acute HFrEF (heart failure with reduced ejection fraction) (HCC) Acute on chronic clinical systolic heart failure (HCC) Resolved Problems: * No resolved hospital problems. * Review of Systems: Review of Systems Constitutional: Negative for chills, diaphoresis and fever. Pt states feeling improved Respiratory: Negative for cough, shortness of breath and wheezing. SOB is improved Cardiovascular: Negative for chest pain, palpitations and leg swelling. Denies CP or palpitations Gastrointestinal: Negative for abdominal distention, abdominal pain, blood in stool, constipation, diarrhea, nausea and vomiting. Genitourinary: Negative for hematuria. Neurological: Negative for dizziness and syncope. VITAL SIGNS: Vitals: 09/24/20 0502 09/24/20 0518 09/24/20 0700 09/24/20 0745 BP: 113/64 107/73 Pulse: 83 85 89 Resp: 16 21 29 19 Temp: 98.6 F (37 C) TempSrc: Oral SpO2: 96% 98% 95% 96% Weight: Height: Intake/Output Summary (Last 24 hours) at 09/24/2020 0759 Last data filed at 09/24/2020 0748 Gross per 24 hour Intake 2570.57 ml Output 4515 ml Net -1944.43 ml Patient Vitals for the past 96 hrs (Last 3 readings): Weight 09/24/20 0500 182 lb 6.4 oz (82.7 kg) 09/22/20 0700 191 lb (86.6 kg) 09/21/202000 195 lb 6.4 oz (88.6 kg) Physical Exam: Physical Exam Constitutional: General: He is not in acute distress. Appearance: Normal appearance. He is well-developed. He is not diaphoretic. HENT: Mouth/Throat: Pharynx: No oropharyngeal exudate. Eyes: General: No scleral icterus. Right eye: No discharge. Left eye: No discharge. Neck: Thyroid: No thyromegaly. Vascular: No JVD. Cardiovascular: Rate and Rhythm: Normal rate and regular rhythm. Chest Wall: PMI is not displaced. Pulses: Normal pulses. Heart sounds: Normal heart sounds. No murmur. No gallop. Comments: Regular, heart tones distant Pulmonary: Effort: No accessory muscle usage or respiratory distress. Breath sounds: Normal breath sounds. Comments: Scattered rhonchi present Abdominal: General: Bowel sounds are normal. There is no distension or abdominal bruit. Palpations: Abdomen is soft. There is no shifting dullness or hepatomegaly. Tenderness: There is no abdominal tenderness. Musculoskeletal: Normal range of motion. Comments: Trace edema present BLE Skin: General: Skin is warm and dry. Neurological: Mental Status: He is alert and oriented to person, place, and time. Data: Scheduled Meds: Reviewed Continuous Infusions: furosemide (LASIX) infusion 10 mg/hr (09/24/20 0552) CBC: Recent Labs 09/23/20 0414 09/24/20 0328 WBC 5.9 5.7 HGB 11.0* 10.3* HCT 34.2* 32.6* PLT 245 230 BMP: Recent Labs 09/23/20 0414 09/24/20 0328 NA 137 136 K 3.5 3.2* CL 97* 94* CO2 30 34* BUN 42* 42* CREATININE 2.38* 2.23* Telemetry Reviewed: V-pacing 80's Last Echo: 08/23/2020- SUMMARY: 1. Left ventricle: Systolic function is by the biplane method of disks. The estimated ejection fraction is 14%. Severe diffuse hypokinesis with regional variations. Unable to assess LV diastolic function due to severe mitral regurgitation 2. Right ventricle: The cavity size is moderately dilated. Systolic function is mildly decreased byvisual assessment. 3. Left atrium: The atrium is severely dilated. 4. Right atrium: The atrium is severely dilated. 5. Mitral valve: There is moderate-severe, 3+ regurgitation, directed eccentrically and toward the septum. ERO: 0.06 cm^2. 6. Aortic valve: Mildly thickened, mildly calcified leaflets. There is mild- moderate, 1-2+ regurgitation. 7. Tricuspid valve: There is moderate-severe, 3+ regurgitation. The effective regurgitant orifice (PISA) is 0.2 cm^2. 8. Aorta: The aorta is poorly visualized and moderately dilated. The ascending aorta maximal dimension is 4.2 cm. 9. Pericardium, extracardiac: There is no pericardial effusion. There is a right pleural effusion. 10. Pulmonary arteries: Systolic pressure is moderately increased, estimated to be 55 mm Hg. 11. Inferior vena cava: The vessel is dilated. The IVC collapses by less than 50% with inspiration. Last cardiac catheterization: 04/2019 No significant disease 09/11/2020-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 implant IMPRESSIONS/RECOMMENDATIONS: 1. Heart failure with severely reduced EF exacerbation- good diuresis overnight - neg 2 liters last 24 hours and down 13 lbs today since admission - Less SOB and leg swelling improved - Lasix drip continues, metolazone 5 mg daily - Toprol 100 mg daily and Entresto 24/26 mg 1 tab twice daily. Pt has a hx of hypotension with increased doses of Entresto. 2. 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 Hypertension- stable/controlled 4. Renal insuffiencey- stable, will continue to closely monitor during IV diuresis. - also followed by Nephrology Electronicallysigned by Petra Renteria APRN - [employer]INE OILER on 09/24/2020 at 7:59 AM I, Dr. Jama, personally performed a face to face diagnostic evaluation. I have reviewed the PHARMACY AIDE's documentation and edited the clinical findings, assessment, and plan to reflect my own evaluation andmedical decision making. In addition to above, history and exam by me shows pt alert nad rrr lungs clear, edema decreased. The plan is to likely transition off lasix gtt and metolazone in a.m. Replete K+. * Kashmir Nunez MD - 09/23/2020 4:38 PM EST [facility] Progress Note Subjective/ 80 y.o. year old male who we are seeing in consultation for GABI on CKD. PO intake okay. BP stable. Good urine output. Breathing stable. ROS otherwise negative. No change in pfsh. Objective/ Vitals: 09/23/20 1300 09/23/20 1400 09/23/20 1426 09/23/20 1502 BP: 116/74 112/71 121/74 Pulse: 81 91 96 Resp: 16 28 Temp: 97.6 F (36.4 C) TempSrc: Oral SpO2: 100% 94% 98% Weight: Height: 24HR INTAKE/OUTPUT: Intake/Output Summary (Last 24 hours) at 09/23/2020 1638 Last data filed at 09/23/2020 1502 Gross per 24 hour Intake 746.57 ml Output 3000 ml Net -2253.43 ml Constitutional: Alert, awake, no apparent distress Head: AT NC Neck: No JVD, no thyromegaly Cardiovascular: S1, S2 without m/r/g Respiratory: CTA B without w/r/r Abdomen: soft, nt Ext: 2+ B/L pitting LE edema, no tremor. Current Facility-Administered Medications Medication Dose Route Frequency Provider Last Rate Last Admin potassium chloride (KLOR-CON M) extended release tablet 20 mEq 20 mEq Oral BID WC Les Jama MD metOLazone (ZAROXOLYN) tablet 5 mg 5 mg Oral Daily Mauro Padgett MD 5 mg at 09/23/20 0909 furosemide (LASIX) 500 mg in dextrose 5 % 100 mL infusion 10 mg/hr Intravenous Continuous Petra Gong APRN - [facility] 2 mL/hr at 09/22/20 1545 10 mg/hr at 09/22/20 1545 albuterol (PROVENTIL) nebulizer solution 1.25 mg 1.25 mg Nebulization Q6H PRN Mauro Padgett MD 1.25 mg at 09/23/20 1426 sacubitril-valsartan (ENTRESTO) 24-26 MG per tablet 1 tablet 1 tablet Oral BID Petra Renteria APRN - [facility] 1 tablet at 09/23/20 0906 apixaban (ELIQUIS) tablet 2.5 mg 2.5 mg Oral BID Petra Renteria APRN - [facility] 2.5 mg at 09/23/20 0908 ferrous sulfate (IRON 325) tablet 325 mg 325 mg Oral BID WC Petra Renteria APRN - MARIIA 325 mg at 09/23/20 0909 metoprolol succinate (TOPROL XL) extended release tablet 100 mg 100 mg Oral Daily Petra Renteria APRN - [employer] 100 mg at 09/23/20 0906 gabapentin (NEURONTIN) capsule 400 mg 400 mg Oral BID Petra Renteria APRN - [employer] [employer] 400 mg at 09/23/20 0906 tamsulosin (FLOMAX) capsule 0.4 mg 0.4 mg Oral Daily Petra Renteria APRN - [employer] 0.4 mg at 09/23/20 0909 pantoprazole (PROTONIX) tablet 40 mg 40 mg Oral QAM AC Petra Renteria APRN - [employer] [employer] 40 mg at 09/23/20 0909 therapeutic multivitamin-minerals 1 tablet 1 tablet Oral Daily Petra Renteria APRN - [employer] [employer] 1 tablet at 09/23/20 0907 vitamin B-12 (CYANOCOBALAMIN) tablet 1,000 mcg 1,000 mcg Oral Daily Petra Renteria APRN - [employer] [employer] 1,000 mcg at 09/23/20 0907 Vitamin D (CHOLECALCIFEROL) tablet 1,000 Units 1,000 Units Oral Daily Petra Renteria APRN - [employer] 1,000 Units at 09/23/20 0908 furosemide (LASIX) infusion 10 mg/hr (09/22/20 1545) Data/ Recent Labs 09/21/20 2018 09/22/20 0506 09/23/20 0414 WBC 5.5 4.8 5.9 HGB 11.7* 10.6* 11.0* HCT 37.4* 33.6* 34.2* MCV 83.6 82.9 82.6 PLT 237 207 245 Recent Labs 09/21/20201709/22/20 0506 09/23/20 0414 NA 141 139 137 K 3.8 3.8 3.5 CL 97* 102 97* CO2 30 26 30 GLUCOSE 127* 99 110* MG -- 1.5* 2.0 BUN 41* 38* 42* CREATININE 2.57* 2.24* 2.38* Assessment/ 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 BPH Plan/ C/W IV diuresis at this point. Some cr spike will have to be tolerated to keep out of CHF. Daily standing weights to continue. Hb at goal Keep cortés catheter. Avoid I/V contrast. Will follow. Kashmir Nunez MD [facility] * Ana M Iverson, OT - 09/23/2020 1:02 PM EST Occupational Therapy Occupational Therapy Initial Assessment Date: 09/23/2020 Patient Name: Megan Nascimento : 1940 Date of Service: 09/23/2020 Discharge Recommendations: Home with Home health OT, Home with assist PRN Assessment Performance deficits / Impairments: Decreased functional mobility ;Decreased ADL status;Decreased endurance;Decreased balance;Decreased high-level IADLs Assessment: Pt was previously independent in ADLs, functional transfers and mobility; pt now requires min A for LB ADLs, and SBA for functional transfers and mobility. Pt is limited by lines on this date as well as slightly impaired balance/endurance. Pt should benefit from skilled OT services in order to increase safety and independence in occupational participation. Prognosis: Good Decision Making: Medium Complexity History: Pt admitted with weakness, fatigue and SOB, found to have HFrEF exacerbation. 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 Exam: [facility] Assistance / Modification: SBA OT Education: OT Role;Plan of Care;Transfer Training Barriers to Learning: none REQUIRES OT FOLLOW UP: Yes Activity Tolerance Activity Tolerance: Patient Tolerated treatment well Safety Devices Safety Devices in place: Yes Type of devices: All fall risk precautions in place;Call light within reach;Gait belt;Patient at risk for falls;Nurse notified;Left in bed Patient Diagnosis(es): There were no encounter diagnoses. has a past medical history of Bladder cancer (HCC), DM (diabetes mellitus) (HCC), DM (diabetes mellitus) (HCC), DVT (deep venous thrombosis) (HCC), ED (erectile dysfunction), Follicular non-Hodgkin'slymphoma (HCC), GERD (gastroesophageal reflux disease), GERD (gastroesophageal reflux disease), HTN (hypertension), HTN (hypertension), Hyperlipidemia, Non-ischemic cardiomyopathy (HCC), PUD (peptic ulcer disease), Pulmonary embolism (HCC), Pulmonary fibrosis (HCC), Rosacea, and Tachycardia. has a past surgical history that includes Septoplasty; Facial cosmetic surgery; bone marrow biopsy;lymph node biopsy; and Ventricular cardiac pacer insertion (09/11/2020). Restrictions Restrictions/Precautions Restrictions/Precautions: General Precautions, Fall Risk(HICU tele, continuous O2 monitoring, cortés, PIV) Required Braces or Orthoses?: No Subjective General Chart Reviewed: Yes Patient assessed for rehabilitation services?: Yes Family / Caregiver Present: No Subjective Subjective: Pt pleasant and cooperative. General Comment Comments: Per RNesther for pt to participate in OT eval. Patient Currently in Pain: Denies Pain Assessment Pain Assessment: 0-10 Pain Level: 0 Patient's Stated Pain Goal: No pain Vital Signs Pulse: 89 Resp: 23 BP: 120/75 MAP (mmHg): 85 Patient Currently in Pain: Denies Oxygen Therapy SpO2: 98 % Pulse Oximeter Device Mode: Continuous Pulse Oximeter Device Location: Finger O2 Device: None (Room air) Social/Functional History Social/Functional History Lives With: (ex-) Type of Home: House Home Layout: One level, Laundry in basement Home Access: Stairs to enter with rails Entrance Stairs - Number of Steps: 2 Bathroom Shower/Tub: Tub/Shower unit, Shower chair with back Bathroom Toilet: Standard Bathroom Equipment: Grab bars in shower, Shower chair Bathroom Accessibility: Walker accessible Home Equipment: Cane, 4 wheeled walker(6-wheeled walker) Receives Help From: Family ADL Assistance: Independent Homemaking Assistance: Independent Homemaking Responsibilities: Yes Ambulation Assistance: Independent(typically with no device, sometimes with cane or walker) Transfer Assistance: Independent Active Manager Cancer: Yes Mode of Transportation: [facility] Objective Vision: Within Functional Limits Vision Exceptions: Wears glasses for reading Hearing: Exceptions to WFL Hearing Exceptions: Hard of hearing/hearing concerns Observation/Palpation Posture: Good Observation: all lines intact Edema: BLE Balance Sitting Balance: Independent Standing Balance: Stand by assistance(static/dynamic standing at fww) Functional Mobility Functional - Mobility Device: Rolling Walker Activity: Other(functional distance in room) Assist Level: Stand by assistance Functional Mobility Comments: Pt ambulated with SBA with a steady gait and no LOB noted. Pt required assist for line management, distance limited by lines. ADL Feeding: Independent Grooming: Modified independent UE Bathing: Modified independent LE Bathing: Minimal assistance UE Dressing: Modified independent LE Dressing: Minimal assistance Toileting: Stand by assistance Bed mobility Supine to Sit: Supervision Sit to Supine: Supervision Scooting: Supervision Comment: Pt required SUP for line management. Denied dizziness with changes in positioning. Transfers Sit to stand: Stand by assistance Stand to sit: Stand by assistance Transfer Comments: at fww- pt required VC for safe hand placement as pt attempted to hold onto fww during transfers Cognition Overall Cognitive Status: WFL Sensation Overall Sensation Status: WFL LUE AROM (degrees) LUE AROM : WFL RUE AROM (degrees) RUE AROM : WFL LUE Strength Gross LUE Strength: WFL RUE Strength Gross RUE Strength: WFL Plan Plan Times per week: 5 visits Current Treatment Recommendations: Balance Training, Functional Mobility Training, Endurance Training, Safety Education & Training, Self-Care / ADL, Positioning, Equipment Evaluation, Education, & procurement, Patient/Caregiver Education & Training, Home Management Training Plan Comment: POC and goals were made in collaboration with the pt. AM-PAC Score AM-PAC Inpatient Daily Activity Raw Score: 21 (09/23/20 1303) AM-PAC Inpatient ADL T-Scale Score : 44.27 (09/23/20 1303) ADL Inpatient CMS 0-100% Score: 32.79 (09/23/20 1303) ADL Inpatient CMS G-Code Modifier : CJ (09/23/20 1303) Goals Short term goals Time Frame for Short term goals: 5 visits Short term goal 1: Pt will complete functional transfers and mobility with mod I. Short term goal 2: Pt will complete LB ADLs with mod I. Short term goal 3: Pt will complete toileting including toilet transfer with mod I. Short term goal 4: Pt will complete functional standing >3 minutes with mod I in order to increase occupational participation. Therapy Time Individual Concurrent Group Co-treatment Time In 1155 Time Out 1208 Minutes 13 Ana M Iverson OT * Les Jama MD - 09/23/2020 7:47 AM EST CARDIOLOGY PROGRESS NOTE Chart and interval events reviewed. Reason for Visit CHF-f/u SUBJECTIVE: Megan Higuera Azam states feeling OK. Denies any present symptoms of SOB. Denies chest pain or palpitations. Pt had increased urin output overnight. SCHEDULED MEDICATIONS: metOLazone 5 mg Oral Daily sacubitril-valsartan 1 tablet Oral BID apixaban 2.5 mg Oral BID ferrous sulfate 325 mg Oral BID WC metoprolol succinate 100 mg Oral Daily gabapentin 400 mg Oral BID tamsulosin 0.4 mg Oral Daily pantoprazole 40 mg Oral QAM AC therapeutic multivitamin-minerals 1 tablet Oral Daily vitamin B-12 1,000 mcg Oral Daily vitamin D3 1,000 Units Oral Daily Active Problems: Acute HFrEF (heart failure with reduced ejection fraction) (HCC) Acute on chronic clinical systolic heart failure (HCC) Resolved Problems: * No resolved hospital problems. * Review of Systems: Review of Systems Constitutional: Negative for chills, diaphoresis and fever. Pt sleepy, but answers questions appropriately Respiratory: Negative for cough, shortness of breath and wheezing. Denies present symptoms of SOB Cardiovascular: Negative for chest pain, palpitations and leg swelling. Denies CP or palpitations Gastrointestinal: Positive for abdominal distention (softly distended). Negative for abdominal pain, blood in stool, constipation, diarrhea, nausea and vomiting. Genitourinary: Negative for hematuria. Neurological: Negative for dizziness and syncope. VITAL SIGNS: Vitals: 09/23/20 0402 09/23/20 0502 09/23/20 0552 09/23/20 0603 BP: 114/60 123/60 123/60 129/72 Pulse: 82 83 91 Resp: Temp: TempSrc: SpO2: 100% 100% 100% Weight: Height: Intake/Output Summary (Last 24 hours) at 09/23/2020 0747 Last data filed at 09/23/2020 0630 Gross per 24 hour Intake 800 ml Output 2450 ml Net -1650 ml Patient Vitals for the past 96 hrs (Last 3 readings): Weight 09/22/20 07 191 lb (86.6 kg) 09/21/202000 195 lb 6.4 oz (88.6 kg) Physical Exam: Physical Exam Constitutional: General: He is not in acute distress. Appearance: He is well-developed. He is not diaphoretic. Comments: Elderly, frail HENT: Mouth/Throat: Pharynx: No oropharyngeal exudate. Eyes: General: No scleral icterus. Right eye: No discharge. Left eye: No discharge. Neck: Thyroid: No thyromegaly. Vascular: No JVD. Cardiovascular: Rate and Rhythm: Normal rate and regular rhythm. Chest Wall: PMI is not displaced. Pulses: Normal pulses. Heart sounds: Normal heart sounds. No murmur. No gallop. Comments: regular Pulmonary: Effort: No accessory muscle usage or respiratory distress. Breath sounds: Normal breath sounds. Comments: Diminished anteriorly Abdominal: General: Bowel sounds are normal. There is no distension or abdominal bruit. Palpations: Abdomen is soft. There is no shifting dullness or hepatomegaly. Tenderness: There is no abdominal tenderness. Musculoskeletal: Normal range of motion. Comments: Trace edema BLE Skin: General: Skin is warm and dry. Neurological: Mental Status: He is alert and oriented to person, place, and time. Data: Scheduled Meds: Reviewed Continuous Infusions: furosemide (LASIX) infusion 10 mg/hr (09/22/20 1545) CBC: Recent Labs 09/22/20 0506 09/23/20 0414 WBC 4.8 5.9 HGB 10.6* 11.0* HCT 33.6* 34.2* PLT 207 245 BMP: Recent Labs 09/22/20 0506 09/23/20 0414 NA 139 137 K 3.8 3.5 CL 102 97* CO2 26 30 BUN 38* 42* CREATININE 2.24* 2.38* Telemetry Reviewed: V-pacing 84 Last Echo: 08/23/2020- SUMMARY: 1. Left ventricle: Systolic function is by the biplane method of disks. The estimated ejection fraction is 14%. Severe diffuse hypokinesis with regional variations. Unable to assess LV diastolic function due to severe mitral regurgitation 2. Right ventricle: The cavity size is moderately dilated. Systolic function is mildly decreased byvisual assessment. 3. Left atrium: The atrium is severely dilated. 4. Right atrium: The atrium is severely dilated. 5. Mitral valve: There is moderate-severe, 3+ regurgitation, directed eccentrically and toward the septum. ERO: 0.06 cm^2. 6. Aortic valve: Mildly thickened, mildly calcified leaflets. There is mild- moderate, 1-2+ regurgitation. 7. Tricuspid valve: There is moderate-severe, 3+ regurgitation. The effective regurgitant orifice (PISA) is 0.2 cm^2. 8. Aorta: The aorta is poorly visualized and moderately dilated. The ascending aorta maximal dimension is 4.2 cm. 9. Pericardium, extracardiac: There is no pericardial effusion. There is a right pleural effusion. 10. Pulmonary arteries: Systolic pressure is moderately increased, estimated to be 55 mm Hg. 11. Inferior vena cava: The vessel is dilated. The IVC collapses by less than 50% with inspiration. Last cardiac catheterization: 04/2019 No significant disease 09/11/2020-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 implant IMPRESSIONS/RECOMMENDATIONS: 1. Heart failure with reduced EF exacerbation- good diuresis overnight - neg 1,650 overnight - Lasix drip continues, metolazone 5 mg daily - Toprol 100 mg daily and Entresto 24/26 mg 1 tab twice daily. Pt has a hx of hypotension with increased doses of Entresto. 2. 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 Hypertension- stable/controlled 4. Renal insuffiencey- Creatinine is mildly elevated compared to baseline. Continue to monitor during IV diuresis -Nephrology also consulted Electronicallysigned by Petra Renteria APRN - [facility] on 09/23/2020 at 7:47 AM I, Dr. Jama, personally performed a face to face diagnostic evaluation. I have reviewed the PHARMACY AIDE's documentation and edited the clinical findings, assessment, and plan to reflect my own evaluation andmedical decision making. In addition to above, history and exam by me shows pt alert NAD lungs mildly diminished, +JVD, abd soft, 2+ BLE soft pitting edema. The plan is to continue diuresis. Replete lytes, anticipate further drop in K+ with metolazone and lasix. * Bianca Rehman, RD, LD - 09/22/2020 10:12 AM EST Comprehensive Nutrition Assessment Type and Reason for Visit: Initial, Consult(HF Guidelines) Nutrition Recommendations/Plan: 1. Continue Cardiac/ Low Sodium (2gm) diet as ordered. Cardiac includes fat restriction which may aide in gallbladder symptoms - noted pt awaiting surgery. Fluid allowance per MD discretion, per chart review, pt limited to 64 ounces/day PSYCHIATRIC REGISTERED NURSE. 2. RD provided written diet education (Cardiac TLC Diet & Heart Failure Nutrition Therapy). Attempted to verbally review, however, pt very fatigued, falling asleep multiple times during instruction. RD to re-attempt diet education closer to discharge date if appropriate. 3. Please document pt's PO intakes via flowsheet to accurately assess PO intake adequacy. 4. RD to monitor adequacy of oral intake, wt changes, labs, I/O's & overall nutrition status. Will follow up weekly. Nutrition Assessment: Pt resting in bed, sleeping, easily awakened to stated name at time of interview. Pt reports SOB after eating and upon exertion, however, overall he feels this is improving. Pt also reports BLE swelling improving, however, edema still observed. Pt reports he remains with good appetite, reporting heate a good breakfast this AM (grits, [employer], bagel). Pt reports he does attempt to follow a lower sodium diet at home. RD provided written diet education (Cardiac TLC Diet & Heart Failure Nutrition Therapy from [facility]). Attempted to verbally review, however, pt very fatigued, falling asleep multiple times during instruction. RD to re-attempt diet education closer to discharge date if a ppropriate. Malnutrition Assessment: Malnutrition Status: Insufficient data Context: Acute Illness Estimated Daily Nutrient Needs: Energy (kcal): 0867-0004; Weight Used for Energy Requirements: [place] Protein (g): 67-80; Weight Used for Protein Requirements: [place](1.0-1.2 g/kg) Fluid (ml/day): Per MD recommendations Nutrition Related Findings: +BS; Abdomen: WDL; +2 BLE edema; Skin intact Wounds: None(Simon=20 (3/5)) Medications: PPI, Iron, MVI, Vit B12, Vit D, Lasix Labs: BUN 38; Cr 2.24^; BGT - 128, 127, 99 Current Nutrition Therapies: DIET CARDIAC; Low Sodium (2 GM) Anthropometric Measures: Height: 5' 7 (170.2 cm) Current Body Weight: 195 lb (88.5 kg) Usual Body Weight: Appears around 182#-187# [place] Body Weight: 148 lbs; % [place] Body Weight 131.8 % BMI: 30.5 Adjusted Body Weight: ; No Adjustment BMI Categories: Obese Class 1 (BMI 30.0-34.9) Nutrition Diagnosis: Altered nutrition-related lab values related to acute injury/trauma, renal dysfunction as evidencedby lab values (Unintentional weight gain) related to cardiac dysfunction as evidenced by (+8 pounds since discharge (09/15/20); +2 BLE pitting edema; increased SOB) Nutrition Interventions: Food and/or Nutrient Delivery: Continue Current Diet Nutrition Education/Counseling: Education initiated(Written diet education provided; Attempted to review with pt, however, pt frequently falling asleep) Coordination of Nutrition Care: No recommendation at this time Goals: Pt will meet 80-100% of estimated energy/protein needs through meals. Pt's labs will trend toward baseline Nutrition Monitoring and Evaluation: Behavioral-Environmental Outcomes: None Identified Food/Nutrient Intake Outcomes: Diet Advancement/Tolerance, Food and Nutrient Intake Physical Signs/Symptoms Outcomes: Biochemical Data, Nutrition Focused Physical Findings, Skin, Weight, GI Status, Fluid Status or Edema Discharge Planning: Too soon to determine Contact: [phone] * Petra Renteria APRN - [employer] [employer] - 09/22/2020 8:06 AM EST CARDIOLOGY PROGRESS NOTE Chart and interval events reviewed. Reason for Visit HFrEF- exacerbation-f/u SUBJECTIVE: Megan Higuera Bright states feels a little less SOB and legs feel a little less swollen this am. Layingin bed with 30 degrees. Denies PND/orthopnea presently. Denies chest pain or palpitations. SCHEDULED MEDICATIONS: magnesium sulfate 2,000 mg Intravenous Once furosemide 80 mg Intravenous BID sacubitril-valsartan 1 tablet Oral BID apixaban 2.5 mg Oral BID ferrous sulfate 325 mg Oral BID WC metoprolol succinate 100 mg Oral Daily gabapentin 400 mg Oral BID tamsulosin 0.4 mg Oral Daily pantoprazole 40 mg Oral QAM AC therapeutic multivitamin-minerals 1 tablet Oral Daily vitamin B-12 1,000 mcg Oral Daily vitamin D3 1,000 Units Oral Daily Active Problems: Acute HFrEF (heart failure with reduced ejection fraction) (HCC) Acute on chronic clinical systolic heart failure (HCC) Resolved Problems: * No resolved hospital problems. * Review of Systems: Review of Systems Constitutional: Negative for chills, diaphoresis and fever. Pt states feeling OK Respiratory: Negative for cough, shortness of breath and wheezing. Feels his breathing is a little better today compared to yesterday Cardiovascular: Positive for leg swelling (he states his legs a little less swollent his am). Negative for chest pain and palpitations. Denies chest pain or palpitations Gastrointestinal: Positive for abdominal distention (softly). Negative for abdominal pain, blood instool, constipation, diarrhea, nausea and vomiting. Genitourinary: Negative for hematuria. Neurological: Negative for dizziness and syncope. VITAL SIGNS: Vitals: 09/21/20 2100 09/22/20 0301 09/22/20 0402 09/22/20 0501 BP: 130/77 118/89 133/78 Pulse: 96 95 83 Resp: Temp: 97.4 F (36.3 C) TempSrc: Oral SpO2: 97% 96% 100% 100% Weight: Height: Intake/Output Summary (Last 24 hours) at 09/22/2020 0806 Last data filed at 09/22/2020 0517 Gross per 24 hour Intake 450 ml Output 495 ml Net -45 ml Patient Vitals for the past 96 hrs (Last 3 readings): Weight 09/21/202000 195 lb 6.4 oz (88.6 kg) Physical Exam: Physical Exam Constitutional: General: He is not in acute distress. Appearance: He is well-developed. He is not diaphoretic. Comments: Appears volume overloaded HENT: Mouth/Throat: Pharynx: No oropharyngeal exudate. Eyes: General: No scleral icterus. Right eye: No discharge. Left eye: No discharge. Neck: Thyroid: No thyromegaly. Vascular: No JVD. Comments: + JVD Cardiovascular: Rate and Rhythm: Normal rate and regular rhythm. Chest Wall: PMI is not displaced. Pulses: Normal pulses. Heart sounds: Normal heart sounds. No murmur. No gallop. Pulmonary: Effort: No accessory muscle usage or respiratory distress. Breath sounds: Normal breath sounds. Comments: Diminished in bilateral bases Abdominal: General: Bowel sounds are normal. There is no distension or abdominal bruit. Palpations: Abdomen is soft. There is no shifting dullness or hepatomegaly. Tenderness: There is no abdominal tenderness. Musculoskeletal: Normal range of motion. Right lower leg: Edema present. Left lower leg: Edema present. Comments: 2+ pitting edema BLE hips down Skin: General: Skin is warm and dry. Neurological: Mental Status: He is alert and oriented to person, place, and time. Data: Scheduled Meds: Reviewed Continuous Infusions: CBC: Recent Labs 09/21/20201709/22/20 0506 WBC 5.5 4.8 HGB 11.7* 10.6* HCT 37.4* 33.6* PLT 237 207 BMP: Recent Labs 09/21/20 2018 09/22/20 0506 NA 141 139 K 3.8 3.8 CL 97* 102 CO2 30 26 BUN 41* 38* CREATININE 2.57* 2.24* INR:No results for input(s): INR in the last 72 hours. No results for input(s): BNP in the last 72 hours. TSH: No results found for: TSH Cardiac Injury Profile: No results for input(s): CKTOTAL, CKMB, TROPONINI in the last 72 hours. Lipid Profile: No results found for: TRIG, HDL, LDLCALC, CHOL EKG: See Report Telemetry Reviewed: V-pacing 90 bpm Last Echo: 08/23/2020- SUMMARY: 1. Left ventricle: Systolic function is by the biplane method of disks. The estimated ejection fraction is 14%. Severe diffuse hypokinesis with regional variations. Unable to assess LV diastolic function due to severe mitral regurgitation 2. Right ventricle: The cavity size is moderately dilated. Systolic function is mildly decreased by visual assessment. 3. Left atrium: The atrium is severely dilated. 4. Right atrium: The atrium is severely dilated. 5. Mitral valve: There is moderate-severe, 3+ regurgitation, directed eccentrically and toward the septum. ERO: 0.06 cm^2. 6. Aortic valve: Mildly thickened, mildly calcified leaflets. There is mild-moderate, 1-2+ regurgitation. 7. Tricuspid valve: There is moderate-severe, 3+ regurgitation. The effective regurgitant orifice (PISA) is 0.2 cm^2. 8. Aorta: The aorta is poorly visualized and moderately dilated. The ascending aorta maximal dimension is 4.2 cm. 9. Pericardium, extracardiac: There is no pericardial effusion. There is a right pleural effusion. 10. Pulmonary arteries: Systolic pressure is moderately increased, estimated to be 55 mm Hg. 11. Inferior vena cava: The vessel is dilated. The IVC collapses by less than 50% with inspiration. Last cardiac catheterization: 04/2019 No significant disease 09/11/2020-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 implant IMPRESSIONS/RECOMMENDATIONS: 1. Heart failure with reduced EF exacerbation- decompensated - [place] [employer] Functional Class - 3, stage D - IV lasix 80 mg twice daily continues- will monitor daily weights, intake and output - Entresto 24/26 mg 1 tab twice daily and Toprol XL 100 mg daily continues. 2. Recent 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 implant 09/11/2020 -noted first device check scheduled 10/02/2020 3. Hypertension- well controlled 4. Renal insuff- will monitor daily BMP with IV diuresis 5. Hypo magnesium- supplemented Electronicallysigned by CHLOE Ch CNP on 09/22/2020 at 8:06 AM documented in this encounter Assessments Diagnosis Iron deficiency anemia, unspecified iron deficiency anemia type- Primary Iron malabsorption Other specified intestinal malabsorption Chronic systolic (congestive) heart failure (HCC) Other pulmonary embolism without acute cor pulmonale (HCC) Diagnosis Chronic systolic (congestive) heart failure (HCC) Pulmonary embolism, unspecified chronicity, unspecified pulmonary embolism type, unspecified whether acute cor pulmonale present (HCC) Chronic systolic heart failure (HCC) Chronic systolic heart failure Deep venous thrombosis (DVT) of right peroneal vein, unspecified chronicity (HCC) Essential hypertension Unspecified essential hypertension Hyperlipidemia, unspecified hyperlipidemia type Non-ischemic cardiomyopathy (HCC) Other primary cardiomyopathies Diagnosis Chronic systolic heart failure (HCC) Chronic systolic heart failure Diagnosis Iron deficiency anemia, unspecified iron deficiency anemia type- Primary Iron malabsorption Other specified intestinal malabsorption Diagnosis Abdominal pain, right upper quadrant- Primary Diagnosis Chronic systolic heart failure (HCC)- Primary Chronic systolic heart failure Acute on chronic HFrEF (heart failure with reduced ejection fraction) (HCC) Left bundle branch block Other left bundle branch block Diagnosis Acute on chronic HFrEF (heart failure with reduced ejection fraction) (HCC) Diagnosis Acute on chronic clinical systolic heart failure (HCC) Acute HFrEF (heart failure with reduced ejection fraction) (HCC) Advance Directives No Advanced Directives Records FoundDocuments on File Type Date Recorded Patient Software Installer Expl anation ACP-Advance Directive ACP-Power of Ict Project Manager Documents on File Type Date Recorded Patient Software Installer Expl anation ACP-Advance Directive ACP-Power of Ict Project Manager Latest Code Status on File Code Status Date Activated Date Inactivated Comments Full Code 09/11/2020 5:51 PM Full Code 09/11/2020 11:11 AM 09/11/2020 5:51 PM Latest Code Status on File Code Status Date Activated Date Inactivated Comments Full Code 09/11/2020 5:51 PM 09/15/2020 7:16 PM Advance Directive Response Recorded Date/ Time Living Will No August 20 10:36pm Power of Ict Project Manager Yes August 20, 2021 10:36pm Latest Code Status on File Code Status Date Activated Date Inactivated Comments Full Code 05/13/2021 10:55 PM 05/21/2021 5:56 PM Full Code 01/30/2021 4:10 PM 02/01/2021 4:49 PM Full Code 09/11/2020 5:51 PM 09/15/2020 7:16 PM Full Code 09/11/2020 11:11 AM 09/11/2020 5:51 PM Advance Directive Response Recorded Date/ Time Living Will No August 20 9:36pm Power of Ict Project Manager Yes August 20, 2021 9:36pm Advance Directive Response Recorded Date/ Time Living Will No November 27, 2023 4: 43am Power of Ict Project Manager No November 27, 2023 4:43am Advance Directive Response Recorded Date/ Time Do you have a Healthcare Power of Ict Project Manager? Yes December 12, 2024 11:46am Date Activated Date Inactivated Comments 01/29/2025 2:17 PM 02/01/2025 8:33 PM Date Activated Date Inactivated Comments 02/10/2025 6:22 AM 02/15/2025 6:29 PM Date Activated Date Inactivated Comments 01/29/2025 2:17 PM 02/01/2025 8:33 PM Advance Directive Response Recorded Date/ Time Do you have a Healthcare Power of Ict Project Manager? Yes December 12, 2024 11:46am Do you have a Healthcare Power of Ict Project Manager? No April 01, 2025 12:38pm Reason for Referral Status Reason Specialty Diagnoses / Procedures Re ferred By Contact Referred To Contact Closed Cardiology Diagnoses Chronic systolic heart failure (HCC) Pulmonary embolism, unspecified chronicity, unspecified pulmonary embolism type, unspecified whether acute cor pulmonale present (HCC) Deep venous thrombosis (DVT) of right peroneal vein, unspecified chronicity (HCC) Essential hypertension Hyperlipidemia, unspecified hyperlipidemia type Non-ischemic cardiomyopathy (HCC) Procedures Echo 2D Doppler Color Ralph Roth MD [address] [place] [address] Specialty Diagnoses / Procedures Referred By Juan t Referred To Contact Cardiology Diagnoses Chronic HFrEF (heart failure with reduced ejection fraction) (HCC) Procedures Echo 2D Doppler Color Ruddy Gates MD [address] [place] [id number] Referral ID Status Reason Start Date Expiration Date Visits Re quested Visits Authorized [id number] Closed 02/16/2022 07/21/2022 1 1 Discharge Instructions * Instructions* Shamika Glasgow MD - 09/05/2020 Please return to the emergency department if your symptoms change or worsen. There is a chance that you may be early in the course of a disease process that did not reveal itself today. For this reason you should follow up in 24 hours for re-evaluation with either your primary care physician or if necessary, return here to the Emergency Department. You should return to the Emergency Department immediately if your symptoms worsen or new symptoms develop. * Attachments The following attachments cannot be sent through Care Everywhere. * Abdominal Pain (Macedonian) documented in this encounter* Discharge Instr - Lab* Maria Antonia Mcmullen RN - 09/15/2020 1:12 PM EST Your physician has ordered skilled home care services for you. Your home care will be provided by: [facility] [phone] * Additional Instructions* Marcela Henson, CYBER SECURITY SYSTEMS ENGINEER - MARINE OILER - 09/11/2020 Internal Cardioverter Defibrillator May Bath On: 09/13/20 May Remove Bandage On: 09/16/20 Come to the Emergency Room for bleeding that does not stop, increased swelling, or if your arm becomes cold. Call your doctor if you experience redness, swelling or drainage at incision site. Call your doctor if you experience fever or chills. Call your doctor if the incision site becomes increasingly painful to touch. Call your doctor if you experience chest pain, shortness of breath, dizziness, fainting spells, swelling in the ankles, or prolonged hiccoughing. You may take a sponge bath for the next 48 hours then ok to shower. No swimming or tub bathing for 6 weeks. Keep original bandage on until directed. Do NOT remove steri-strips (tape) from incision line if present. Once bandage is removed leave incision open to air. Do not apply lotions, ointments or creamsto incision site. Carry your ID card with you at all times. No driving until your doctor has given you permission to drive. You may resume sexual activity in 3 weeks Keep affected arm below shoulder level for 4 weeks. Do not raise affected arm over your head. Refer to your information booklet for additional information It is recommended that all family members be certified in CPR. Call the Device Clinic at [phone] if you have any questions regarding your incision, defibrillator, or follow-up appointments. Call the Device Clinic at [phone] if you have signs of a rapid heart rhythm, if you hear a beeping tone or vibration from your defibrillator. Call the Device Clinic at [phone] or your physician if you experience a shock. Be calm and liedown if you are alone. If you feel as though you are going to pass out call 911. No lifting, pulling, pushing more than 5 pounds with your affected arm for 4 weeks (a gallon of milk weighs 8 pounds) Keep affected arm below shoulder level for 4 weeks. Do not raise affected arm over your head. Avoid strong magnetic liu such as power plants, arc welding, and large magnets. If someone is touching you when a shock is delivered, they will not be harmed but may experience a sensation similar to a bee sting. Procedure Sedation Instructions 1. If you have received sedation: you must have someone drive you home 2. You should not drive a car, operate machinery, drink alcohol or perform any activity that requires alertness for the rest of the day. The effects of the sedative should be gone by tomorrow. documented in this encounter* Instructions* Tanya Syed RN - 09/26/2020 Images from the original note were not included. [facility]FERENCE TOOL Discharge Date: 09/26/20 Patient Name: Megan Nascimento Support Person/ Primary Emergency Contact: Azam Zuleyka Diagnosis: Acute on chronic clinical systolic heart failure ([facility]) [I50.23] Acute HFrEF (heart failure with reduced ejection fraction) ([facility]) [I50.21] Self monitoring: Weigh yourself daily. Perform after waking and using the toilet. Keep clothing consistent and record. Check Blood Pressure twice a day (morning and late afternoon) and record. Weight Management: If your BMI (Body Mass Index) is greater than 25, you can enroll in a weight management program to improve your health. BMI: Body mass index is 27.06 kg/m . Diet: HEART HEALTHY DIET Low Salt/Sodium 1500 - 2000mg/day No table salt, avoid processed/prepackaged foods (hot dogs, canned soups, salted snacks, pickles, olives.) Low Cholesterol (Saturated fats) Choose Skim and Low Fat dairy products, lean meats - poultry and fish, venison. Look at nutrition labels and serving sizes. Special Instructions or Labwork: Heart Failure: Care Instructions Your Care Instructions Heart failure occurs when your heart does not pump as much blood as the body needs. Failure does not mean that the heart has stopped pumping but rather that it is not pumping as well as it should. Over time, this causes fluid buildup in your lungs and other parts of your body. Fluid buildup can cause shortness of breath, fatigue, swollen ankles, and other problems. By taking medicines regularly, reducing sodium (salt) in your diet, checking your weight every day, and making lifestyle changes, you can feel better and live longer. Follow-up care is a velazquez part of your treatment and safety. Be sure to make and go to all appointments, and call your doctor if you are having problems. It's also a good idea to know your test resultsand keep a list of the medicines you take. How can you care for yourself at home? Medicines Be safe with medicines. Take your medicines exactly as prescribed. Call your doctor if you think you are having a problem with your medicine. Do not take any vitamins, hdam-ecd-oqrxsoi medicine, or herbal products without talking to your doctor first. Do not take ibuprofen (Advil or Motrin) and naproxen (Aleve) without talking to your doctor first. They could make your heart failure worse. You may take some of the following medicine. Angiotensin-converting enzyme inhibitors (ACEIs) or angiotensin II receptor blockers (ARBs) reduce the heart's workload, lower blood pressure, and reduce swelling. Taking an ACEI or ARB may lower your chance of needing to be hospitalized. Beta-blockers can slow heart rate, decrease blood pressure, and improve your condition. Taking a beta-jody may lower your chance of needing to be hospitalized. Diuretics, also called water pills, reduce swelling. You will get more details on the specific medicines your doctor prescribes. Diet Your doctor may suggest that you limit sodium. Your doctor can tell you how much sodium is right for you. An example is less than 2,000 mg a day. This includes all the salt you eat in cooking or in packaged foods. People get most of their sodium from processed foods. Fast food and restaurant meals also tend to be very high in sodium. Ask your doctor how much liquid you can drink each day. You may have to limit liquids. Weight Weigh yourself without clothing at the same time each day. Record your weight. Call your doctor if you have a sudden weight gain, such as more than 2 to 3 pounds in a day or 5 pounds in a week. (Yourdoctor may suggest a different range of weight gain.) A sudden weight gain may mean that your heartfailure is getting worse. Activity level Start light exercise (if your doctor says it is okay). Even if you can only do a small amount, exercise will help you get stronger, have more energy, and manage your weight and your stress. Walking is an easy way to get exercise. Start out by walking a little more than you did before. Bit by bit, increase the amount you walk. When you exercise, watch for signs that your heart is working too hard. You are pushing yourself too hard if you cannot talk while you are exercising. If you become short of breath or dizzy or have chest pain, stop, sit down, and rest. If you feel wiped out the day after you exercise, walk slower or for a shorter distance until youcan work up to a better pace. Get enough rest at night. Sleeping with 1 or 2 pillows under your upper body and head may help you breathe easier. Lifestyle changes Do not smoke. Smoking can make a heart condition worse. If you need help quitting, talk to your doctor about stop-smoking programs and medicines. These can increase your chances of quitting for good.Quitting smoking may be the most important step you can take to protect your heart. Limit alcohol to 2 drinks a day for men and 1 drink a day for women. Too much alcohol can cause health problems. Avoid getting sick from colds and the flu. Get a pneumococcal vaccine shot. If you have had one before, ask your doctor whether you need another dose. Get a flu shot each year. If you must be around people with colds or the flu, wash your hands often. When should you call for help? Call 911 if you have symptoms of sudden heart failure such as: You have severe trouble breathing. You cough up pink, foamy mucus. You have a new irregular or rapid heartbeat. Call your doctor now or seek immediate medical care if: You have new or increased shortness of breath. You are dizzy or lightheaded, or you feel like you may faint. You have sudden weight gain, such as more than 2 to 3 pounds in a day or 5 pounds in a week. (Your doctor may suggest a different range of weight gain.) You have increased swelling in your legs, ankles, or feet. You are suddenly so tired or weak that you cannot do your usual activities. Watch closely for changes in your health, and be sure to contact your doctor if you develop new symptoms. Where can you learn more? Go to https://[employer]pepicewkym.[employer].org and sign in to your [employer] account. Enter E597 in the Search Health Information box to learn more about Heart Failure: Care Instructions. If you do not have an account, please click on the Sign Up Now link. Current as of: July 05, 2019 Content Version: 12.6 [employer]. Care instructions adapted under license by [employer]. If you have questions about a medical condition or this instruction, always ask your healthcare professional. [employer] disclaims any warranty or liability for your use of this information. Activity and Exercise: Walk every day. Start with 5 minutes a day. Slowly increase to a goal (ie. 10-30 minutes a day). Remember to rest when tired. Follow Up Appointments: Please bring Photo ID, Insurance Cards, and a Current List of Medications to your appointments. Rate Clerk: Petra PALMERMARINE OILER @ [address] [place] [address], [address] [address] Appointment: 10/05/2020 9AM Primary Care: RIGOBERTO DURAND MD Appointment: 10/05/2020 @ 10:10 AM Address: [address] , [address] [place] [address] 24 - 72 HR Post Discharge Call: Date and time range: 09/27/2020 - 09/29/2020 between 9am-9pm Patient Pledge: [X} I have or am at risk for developing heart failure and I understand that I need to be aware of the following information: [X] Weigh yourself each morning and record (after emptying bladder but before meal) [X] Limit your salt intake, no more than 2000mg sodium per day [X] Call your doctor if you have: Increase shortness of breath, Swelling of ankles/feet [X] Call your doctor if your pants are fitting tighter [X] Call your doctor if you have a weight gain of 3 lbs overnight or 3-5 lbs over 5-7 days [X] Cannot sleep laying flat or waking up short of breath IF YOU HAVE ANY QUESTIONS, CALL THE UNIT (HICU) AT [phone] documented in this encounter Hospital Course * Lisa Lindsey MD - 09/15/2020 10:56 AM EST [facility] Cardiology Service--Heart Failure Discharge Note Name: Megan Nascimento Date of : 1940 Date of Service: 09/15/20 Time of Service: 2:45 PM Date of Admission: 09/11/2020 Date of Discharge: 09/15/2020 Admitting Physician: Ruddy Gates MD Discharge Attending: Lisa Lindsey MD Primary Care Provider: RIGOBERTO DURAND MD Consultants: RON Reason for Admission 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 placement Hospital Admission ProblemList: Patient Active Problem List Diagnosis Malignant neoplasm of overlapping sites of bladder (HCC) Follicular non-Hodgkin's lymphoma (HCC) Pulmonary embolism (HCC) DVT (deep venous thrombosis) (HCC) HTN (hypertension) Hyperlipidemia Non-ischemic cardiomyopathy (HCC) Iron deficiency anemia, unspecified Iron malabsorption Left bundle branch block Acute on chronic HFrEF (heart failure with reduced ejection fraction) (HCC) ICD (implantable cardioverter-defibrillator), biventricular, in situ Discharge Diagnoses: #Acute on chronic HFrEF 14%, NICM, complicated by mod to severe MR/TR. Stage C - Found to be in ADHF with volume overload after 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 placement - Diuresed well with lasix gtt. loss of 7lbs (standing weight 187lbs at discharge) with improvements in his JVD assessment. Continued to have BLE swelling but again improved compared to admit. Encouraged elevation and compression stockings. Previously on lasix 80mg PO BID but will d/c on torsemide 80mg daily as pt c/o urinating at night with BID dosing. - Continue Entresto low dose (noted to have transient hypotension thought to be d/t higher doses ofEntresto) - Toprol XL 100mg daily - Educated on daily standing weights, 1.8L fluid restriction, 2gm Na diet #LBBB POD#3 s/p 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 by Dr. Gates - Placed 09/11/20 - Follow up two weeks device clinic and three months with Dr Gates. 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 Since 03/2020 has been 1.0 -2.7 - 2.5 on admit with bump to 3.0, now 2.1 on discharge with plan for f/u labs at first f/u appointment with cardiology. - GABI this admit is likely 2/2 obstructive uropathy vs volume overload s/p cortés and improvement incr #Urinary retention/ ?enlarged prostate - Follows with Dr. Anirudh Arshad with [facility] - Continue flomax - Renal u/s negative for hydronephrosis #Iron def anemia - PO iron Hospital Course Megan Nascimento is a 80 y.o. male (Patient of Dr. Roth) with PMH of HFrEF 14%, NICM, LBBB, non-Hodgkins lymphoma (s/p chemotherapy), bladder cancer, BPH, PE/DVT (dx in [place], on Eliquis),and CKD who presented to [facility] for elective 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 placement. After the procedure he was found to be in ADHF with transient hypotension and volume overloaded and Heart failure was consulted. He was aggressively diureised with Lasix gtt and his home Entresto was decreased to low dose with improvement in his BP. During his stay he had a GABI on CKD likely in the setting of volume overload as well as obstructive uropathy. A cortés was placed after he was found to have severe retention on bladder scan. A renal u/s showed no hydronephrosis. His gabapentin was decreased in the setting of his renal dysfunction. On day of discharge his cortés was removed and he was able to void successfully prior to leaving. Procedures: S/p 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 implant on 09/11/[address] Gates Review of Systems: Review of Systems Constitutional: Negative for activity change, appetite change, diaphoresis, fatigue and unexpected weight change. HENT: Negative for facial swelling, hearing loss and trouble swallowing. Eyes: Negative for photophobia, discharge and visual disturbance. Respiratory: Negative for cough, chest tightness, shortness of breath, wheezing and stridor. Denies orthopnea Denies PND Cardiovascular: Positive for leg swelling (improving). Negative for chest pain and palpitations. Gastrointestinal: Negative for abdominal distention, abdominal pain, blood in stool, constipation, diarrhea, nausea and vomiting. Endocrine: Negative for polydipsia, polyphagia and polyuria. Genitourinary: Negative for difficulty urinating, frequency and urgency. Musculoskeletal: Negative for arthralgias, gait problem and myalgias. Skin: Negative for pallor, rash and wound. Neurological: Negative for dizziness, syncope, weakness, light-headedness and numbness. Hematological: Negative for adenopathy. Does not bruise/bleed easily. Psychiatric/Behavioral: Negative for confusion and sleep disturbance. The patient is not nervous/anxious. Physical Exam: Vitals:BP 113/80 Pulse 94 Temp 96.2 F (35.7 C) (Temporal) Resp 16 Ht 5' 7 (1.702 m) Wt 187 lb 6.3 oz (85 kg) SpO2 99% BMI 29.35 kg/m Intake/Output Summary (Last 24 hours) at 09/15/2020 1445 Last data filed at 09/15/2020 0845 Gross per 24 hour Intake 720 ml Output 1425 ml Net -705 ml Admission weight: 187 lb (84.8 kg) Patient Vitals for the past 96 hrs (Last 3 readings): Weight 09/15/20 0600 187 lb 6.3 oz (85 kg) 09/14/20 0512 192 lb 8 oz (87.3 kg) 09/13/20 0600 194 lb 12.8 oz (88.4 kg) Physical Exam Constitutional: Appearance: Normal appearance. He is normal weight. HENT: Head: Normocephalic and atraumatic. Right Ear: External ear normal. Left Ear: External ear normal. Nose: Nose normal. Mouth/Throat: Mouth: Mucous membranes are moist. Pharynx: Oropharynx is clear. Eyes: Extraocular Movements: Extraocular movements intact. Pupils: Pupils are equal, round, and reactive to light. Neck: Musculoskeletal: Normal range of motion. Vascular: JVD (slightly above clavicle at 90 deg) present. Cardiovascular: Rate and Rhythm: Normal rate and regular rhythm. Pulses: Normal pulses. Heart sounds: Normal heart sounds. Comments: BiV paced Pulmonary: Effort: Pulmonary effort is normal. Breath sounds: Normal breath sounds. Abdominal: General: Abdomen is flat. Bowel sounds are normal. Palpations: Abdomen is soft. Musculoskeletal: Normal range of motion. Right lower le+ Edema present. Left lower le+ Edema present. Skin: General: Skin is warm and dry. Capillary Refill: Capillary refill takes less than 2 seconds. Neurological: General: No focal deficit present. Mental Status: He is alert and oriented to person, place, and time. Psychiatric: Behavior: Behavior normal. Thought Content: Thought content normal. Judgment: Judgment normal. Laboratory Tests: Lab Results Component Value Date BNP 4,099 07/04/2020 Lab Results Component Value Date WBC 5.4 09/14/2020 HGB 10.6 (L) 09/14/2020 HCT 33.9 (L) 09/14/2020 MCV 79.8 (L) 09/14/2020 PLT 225 09/14/2020 Lab Results Component Value Date NA 138 09/15/2020 K 3.1 09/15/2020 CL 96 09/15/2020 CO2 29 09/15/2020 BUN 41 09/15/2020 CREATININE 2.21 09/15/2020 GLUCOSE 116 09/15/2020 CALCIUM 8.7 09/15/2020 Lab Results Component Value Date NA 138 09/15/2020 K 3.1 (L) 09/15/2020 CL 96 (L) 09/15/2020 CO2 29 09/15/2020 BUN 41 (H) 09/15/2020 CREATININE 2.21 (H) 09/15/2020 GLUCOSE 116 (H) 09/15/2020 CALCIUM 8.7 09/15/2020 PROT 7.1 09/05/2020 LABALBU 4.3 09/05/2020 BILITOT 1.9 (H) 09/05/2020 ALKPHOS 107 09/05/2020 AST 84 (H) 09/05/2020 ALT 43 09/05/2020 LABGLOM 30 07/12/2020 Discharge Plan Disposition: Home Condition at Discharge: good Programs/services Recommendations following discharge- [facility] Facility/Home Care Agency: [facility] Patient Discharge Instructions Discharge Medications Megan Nascimento Home Medication Instructions APOORVA:[id number] Printed on:09/15/20 3947 Medication Information apixaban (ELIQUIS) 2.5 MG TABS tablet Take 1 tablet by mouth 2 times daily Cholecalciferol (VITAMIN D3) 1000 UNITS CAPS Take by mouth Coenzyme Q10 (COQ-10 PO) Take by mouth daily ferrous sulfate (IRON 325) 325 (65 Fe) MG tablet Take 1 tablet by mouth 2 times daily gabapentin (NEURONTIN) 400 MG capsule Take 1 capsule by mouth 2 times daily for 45 days. metoprolol (TOPROL-XL) 100 MG XL tablet Take 100 mg by mouth daily Multiple Vitamins-Minerals (MULTIVITAMIN ADULTS PO) Take by mouth daily pantoprazole (PROTONIX) 40 MG tablet daily sacubitril-valsartan (ENTRESTO) 24-26 MG per tablet Take 1 tablet by mouth 2 times daily sildenafil (VIAGRA) 100 MG tablet Take 100 mg by mouth as needed for Erectile Dysfunction tamsulosin (FLOMAX) 0.4 MG capsule Take 0.4 mg by mouth daily Testosterone 20.25 MG/1.25GM (1.62%) GEL Place onto the skin torsemide (DEMADEX) 20 MG tablet Take 4 tablets by mouth daily vitamin B-12 (CYANOCOBALAMIN) 1000 MCG tablet Take 1,000 mcg by mouth daily Diet Diet during hospitalization:DIET CARDIAC; Recommended at discharge: 2 gramsodium, cardiac diet was discussed with the patient. Activity No restriction. up with assist Patient and family counseling: Patient was counseled on diet, activity, medications and signs and symptoms of heart failure to report. The patient has been requested to complete daily weights and record. Follow-uphas been arranged and Written discharge instructions were provided by the heart failure clinic. Future Orders include BMP on 09/21 Appointments Future Appointments Date Time Provider Department Center 09/18/2020 9:30 AM Sia Daniels APRN - [facility] 09/21/2020 2:30 PM CHLOE Skinner NP [facility] 10/02/2020 9:00 AM Leslie Gloria RN [facility] 10/24/2020 11:15 AM Ralph Roth MD [facility] 12/21/2020 3:00 PM Ruddy Gates MD [facility] Quality Indicators NYHA Functional Classification: Class II MedicalTherapy Aspirin: No ROLO/ARB: Yes Statin:No Beta Jody:Yes P2Y12 Inhibitors :No Aldosterone inhibitor :No Smoking cessatoin counseling completed :Yes Cardiac Rehab referral completed :Yes If NO reason for omission not indicated Total time spent for Discharge time greater than 35 minutes I have spent more than 35 minutes face to face with Megan Nascimento,and reviewing notes and laboratory data with greater than 51% of this time was associated with education, counseling, support and coordination of care and I have answered all questions as posed tome by Mr. Nascimento. If any questions call [facility] or [phone] CHLOE Palma CNP [facility] Heart Failure Program [address] [place] [address] [phone] [phone] This note was generated using a voice recognition software program. Please excuse any transcriptionerrors that may have occurred. This note was electronically signed by CHLOE Palma CNP on 09/15/20 ATTENDING ADDENDUM: I, Dr. Lisa Lindsey, have personally performed a face to face diagnostic evaluation on this patient on 09/15/2020. I have reviewed and agree with the care plan. My assessment/plan are as follows In summary, Megan Nascimento 80 yo M s/p 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 for HFrEF (LVEF 14%), LBBB, had transient hypotension with briefly elevated lactate. Unclear precipitant. He does report that he has bene having lower BP since increasing his dose of Entresto. On exam he appeared volume up with significant JVP of >15 mmHg and LE edema. He diuresed fairly well for ~2 days after cortés catheter placed due to urinary obstruction. He feels well on day of discharge Continue on DECREASED dose of Entresto - Continue home diuretics - Symptomatically feels well, but unable to completely decongest, hopefully will have some improvement in comoing weeks with 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 Lisa Lindsey MD Department of Cardiovascular Disease, Division of Heart Failure [facility] [place] 4:53 PM 09/15/20 documented in this encounter* Marcela Rosado APRN - CNP - 09/26/2020 9:53 AM EST Name: Megan Nascimento Date of : 1940 Date of Admission: 09/21/2020 Date of Discharge: 09/26/2020 Admitting physician: Mauro Padgett MD Discharge Attending: Marcela Rosado, Primary Care Physician: RIGOBERTO DURAND MD Review of Systems: Review of Systems Constitutional: Negative for chills, diaphoresis and fever. Pt states feeling improved Respiratory: Negative for cough, shortness of breath and wheezing. SOB is improved Cardiovascular: Negative for chest pain, palpitations and leg swelling. Denies CP or palpitations Gastrointestinal: Negative for abdominal distention, abdominal pain, blood in stool, constipation, diarrhea, nausea and vomiting. Genitourinary: Negative for hematuria. Neurological: Negative for dizziness and syncope. Physical Exam: Physical Exam Vitals: 09/26/20 0356 09/26/20 0502 09/26/20 0601 09/26/20 0704 BP: 130/78 128/77 (!) 116/55 Pulse: 92 91 99 Resp: 18 Temp: 98.1 F (36.7 C) 98 F (36.7 C) TempSrc: Oral Oral SpO2: (!) 77% 99% 99% Weight: 172 lb 12.8 oz (78.4 kg) Height: Reason for Admission: acute on chronic heart failure with reduced ejection fraction Consultants: Internal Medicine, nephrology HOSPITAL ADMISSION PROBLEM LIST: Patient Active Problem List Diagnosis Malignant neoplasm of overlapping sites of bladder (HCC) Follicular non-Hodgkin's lymphoma (HCC) Pulmonary embolism (HCC) DVT (deep venous thrombosis) (HCC) HTN (hypertension) Hyperlipidemia Non-ischemic cardiomyopathy (HCC) Iron deficiency anemia, unspecified Iron malabsorption Left bundle branch block Chronic HFrEF (heart failure with reduced ejection fraction) ([facility]) ICD (implantable cardioverter-defibrillator), biventricular, in situ Calculus of gallbladder without cholecystitis without obstruction History of peptic ulcer disease Epigastric pain Stage 3b chronic kidney disease Acute on chronic clinical systolic heart failure (HCC) Acute HFrEF (heart failure with reduced ejection fraction) ([facility]) Procedures: HOSPITAL COURSE : Mr. Nascimento was admitted from the office to [facility] for increasing weakness, fatigue, exertional dyspneaand a wet cough. He had 3-4+ bilateral lower extremity edema up to his hips and an 8 lb weight gainsince his recent hospital discharge for elective 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. He was IV diuresed and transitioned back tooral diuretic by the time of his discharge (going home on increased Torsemide). His admit weight was 195 lbs and discharge weight is 172 lbs. He is down almost 7.5 L throughout his stay. He was seen today and without much improved and felt stable to discharge to home with close outpatient follow uparranged. He will need close follow up of outpatient labs. Last Labs: Lab Results Component Value Date WBC 6.2 09/26/2020 HGB 11.6 (L) 09/26/2020 HCT 36.4 (L) 09/26/2020 MCV 83.5 09/26/2020 PLT 261 09/26/2020 Lab Results Component Value Date NA 139 09/26/2020 K 4.3 09/26/2020 CL 94 09/26/2020 CO2 35 09/26/2020 BUN 41 09/26/2020 CREATININE 2.14 09/26/2020 GLUCOSE 115 09/26/2020 CALCIUM 9.5 09/26/2020 No results found for: CHOL No results found for: TRIG No results found for: HDL No results found for: LDLCALC, LDLCHOLESTEROL Final Principle Discharge Diagnosis: Acute on chronic heart failure with reduced ejection fraction Secondary Discharge diagnosis: GABI/CKD Discharge Medications: Megan Nascimento Home Medication Instructions APOORVA:[id number] Printed on:09/26/20 1012 Medication Information albuterol (PROVENTIL) (2.5 MG/3ML) 0.083% nebulizer solution INHALE 1 VIAL VIA NEBULIZER 3-4 TIMES DIALY apixaban (ELIQUIS) 2.5 MG TABS tablet Take 1 tablet by mouth 2 times daily Cholecalciferol (VITAMIN D3) 1000 UNITS CAPS Take by mouth Coenzyme Q10 (COQ-10) 30 MG CAPS Take 1 capsule by mouth daily ferrous sulfate (IRON 325) 325 (65 Fe) MG tablet Take 1 tablet by mouth 2 times daily gabapentin (NEURONTIN) 400 MG capsule Take 1 capsule by mouth 2 times daily for 45 days. metoprolol (TOPROL-XL) 100 MG XL tablet Take 100 mg by mouth daily Multiple Vitamins-Minerals (MULTIVITAMIN ADULTS PO) Take by mouth daily pantoprazole (PROTONIX) 40 MG tablet daily potassium chloride (KLOR-CON M) 20 MEQ extended release tablet Take 1 tablet by mouth 3 times daily (with meals) sacubitril-valsartan (ENTRESTO) 24-26 MG per tablet Take 1 tablet by mouth 2 times daily sildenafil (VIAGRA) 100 MG tablet Take 100 mg by mouth as needed for Erectile Dysfunction tamsulosin (FLOMAX) 0.4 MG capsule Take 0.4 mg by mouth daily Testosterone 20.25 MG/1.25GM (1.62%) GEL Place onto the skin torsemide (DEMADEX) 100 MG tablet Take 1 tablet by mouth daily vitamin B-12 (CYANOCOBALAMIN) 1000 MCG tablet Take 1 tablet by mouth daily ICD Registry Information/AMI Registry Information NYHA Functional Classification: Class 2-3 Medical Therapy Aspirin: No If NO reason for omission NA ROLO/ARB: Yes If NO reason for omission Statin:No If NO reason for omission NA Beta Jody:Yes If NO reason for omission NA P2Y12 Inhibitors :No If NO reason for omission NA Aldosterone inhibitor :No If NO reason for omission NA, GABI/CKD Cardiac rehab No If NO reason for omission NA BMI Classification: Overweight (BMI 25.0-29.9) DIET: Heart failure diet. Discharge to Home Condition at Discharge: good Follow up with cardiology with Petra Renteria CNP 10/05/2020 @ 9am If any questions call [facility] office [phone] Total time spent for Discharge time greater than 36 minutes Associated attestation - Ralph Roth MD - 09/26/2020 11:36 AM EST The patient was seen and examined with our nurse practitioner. We assessed the patient independently and discussed his care. We made decisions today together. His physical exam reveals jugular venousdistention, trivial edema, lower pulmonary rales, but no S3 gallop. His dry weight is probably 170 to 175 pounds. We at least need to keep his weight below 180 pounds. He has stable chronic kidney disease with a glomerular filtration rate of about 30. Were using a high dose torsemide at 100 mg daily. He is on guideline directed medical therapy with an oral anticoagulant for venous thromboembolic disease, pulmonary embolism, metoprolol succinate, Entresto. He is not on a statin due to heart failure and the lack of significant obstructive coronary disease. He has a nonischemic cardiomyopathy. He had a cardiac catheterization in April 2019 that showed no significant coronary artery disease. His cardiomyopathy may in part be due to his Hodgkin's lymphoma and chemotherapy that he received [id number]. He is not on Farxiga at this time due to his glomerular filtration rate. I've asked him to make sure he is medically compliant, gets 30 minutes a day of physical activity, and weighs himself daily. We are arranging for home oxygen. I will see him in follow-up within a week. In cardiac resynchronization therapy. documented in this encounter Summary Purpose Family History No Family History Records Found Relationship Condition Age at Onset Recorded Date/T wendy Not Specified Hypertension Unknown Relationship Condition Age at Onset Recorded Date/T wendy Not Specified Malignant neoplasm Unknown Hypertension Unknown Chief Complaint and Reason for Visit Chief Complaint 2 WK S/P WC ABLA ABLA ABLA ABLA ABLA ABLA ABLA FU Reason for Visit GI bleed MIAU (minor aphthous ulceration) Congestive heart failure GI bleed Orthostatic hypotension Upper GI bleed Acid reflux Constipation GI bleed Chief Complaint 2 MO Reason for Visit Acid reflux Constipation Chief Complaint 2 MO 3 MO FU Radiculopathy, lumbar region Reason for Visit Acid reflux Constipation Acid reflux Constipation GI bleed Chief Complaint 3 MO FU Radiculopathy, lumbar region LUMBAR SPINE Reason for Visit Acid reflux Constipation GI bleed Spinal stenosis of lumbar region with radiculopathy Chief Complaint ADD KNEE XRAYS Chief Complaint ADD KNEE XRAYS fall Chief Complaint Admit Date abd December 12, 2024 10:31 am Chief Complaint Admit Date December 12, 2024 10:31 am fall April 01, 2025 12:30pm Additional Source Comments Reason for Visit (unrecogniz ed section and content) Status Reason Specialty Diagnoses / Procedures Re ferred By Contact Referred To Contact Authorized Diagnoses Iron deficiency anemia, unspecified iron deficiency anemia type Iron malabsorption Ralph Roth MD [address] [facility] [address] [place] [address] [facility] [address] [place] [address] Reason Comments Fatigue Abdominal Pain Reason Onset Date Comments Med Management 08/21/2022 Reason Comments Refill Request Sucralfate Reason Comments 6 Month Follow-up Reason Comments Refill Request Reason Comments Med Refill Reason Comments Follow-up Reason Onset Date Comments Med Refill 03/18/2024 Reason Onset Date Comments Med Management 03/19/2024 Reason Comments Congestive Heart Failure Reason Onset Date Comments Med Management 07/11/2022 Reason Comments 1 Year Follow-up Reason Comments Congestive Heart Failure Retaining fluid , incomplete urination. Increased lasix yesterday at PMD Specialty Diagnoses / Procedures Referred By Juan t Referred To Contact Diagnoses AICD (automatic cardioverter/defibrillator ) present Bilateral leg edema Acute systolic congestive heart failure (HCC) Chronic kidney disease, unspecified CKD stage Procedures .. Moises Adan MD [address] [place] [address] Phone: tel: fax: [facility] Cardiac Progressive Care Unit PCU [address] [place] [phone] Phone: tel: Referral ID Status Reason Start Date Expiration Date Visits Re quested Visits Authorized 1 Reason Onset Date Comments Other 02/04/2025 HFdEF Reason Comments Leg Swelling Pt coming in for BLE swelling & redness since being discharged from inpatient for CHF exacerbation about 1 week ago Specialty Diagnoses / Procedures Referred By Juan t Referred To Contact Diagnoses Cellulitis Cellulitis of lower extremity, unspecified laterality Procedures .. Moises Adan MD [address] [place] [address] Phone: tel: fax: [facility] Medical Surgical Unit MSU [address] [place] [address] Phone: tel: Referral ID Status Reason Start Date Expiration Date Visits Re quested Visits Authorized 1 1 Reason Onset Date Comments Transitional Care Management Outreach 02/17/2025 Cellulitis 02/17/2025 Congestive Heart Failure 02/17/2025 Reason Comments Hospital Follow-up Reason Onset Date Comments Transitional Care Management Outreach 03/02/2025 Cellulitis 03/02/2025 BLE Congestive Heart Failure 03/02/2025 Ordered Prescriptions (unrec ognized section and content) Prescription Sig Dispensed Refills Start Date End Da te torsemide (DEMADEX) 20 MG tablet Take 4 tablets by mouth daily 30 tablet 3 09/16/2020 sacubitril-valsartan (ENTRESTO) 24-26 MG per tablet Take 1 tablet by mouth 2 times daily 60 tablet 3 09/15/2020 gabapentin (NEURONTIN) 400 MG capsule Take 1 capsule by mouth 2 times daily for 45 days. 90 capsule 0 09/15/2020 10/30/2020 Prescription Sig Dispensed Refills Start Date End Da te potassium chloride (KLOR-CON M) 20 MEQ extended release tablet Take 1 tablet by mouth 3 times daily (with meals) 90 tablet 1 09/26/2020 Coenzyme Q10 (COQ-10) 30 MG CAPS Take 1 capsule by mouth daily 30 capsule 0 09/26/2020 vitamin B-12 (CYANOCOBALAMIN) 1000 MCG tablet Take 1 tablet by mouth daily 30 tablet 3 09/26/2020 torsemide (DEMADEX) 100 MG tablet Take 1 tablet by mouth daily 30 tablet 3 09/27/2020 potassium chloride (KLOR-CON M) 20 MEQ extended release tablet Take 1 tablet by mouth 3 times daily (with meals) 90 tablet 1 09/26/2020 09/26/2020 (unrecognized sect ion and content) No Status Records FoundNo Status Records FoundNo Status Records FoundNo Status Records Found INFORMATION SOURCE (unrecogn ized section and content) DATE CREATED AUTHOR 06/04/2021 [facility] DATE CREATED AUTHOR AUTHOR'S ORGANIZ ATION 03/22/2022 [facility] DATE CREATED AUTHOR AUTHOR'S ORGANIZ ATION 03/16/2025 [facility] DATE CREATED AUTHOR AUTHOR'S ORGANIZ ATION 04/03/2025 [facility] Goals (unrecognized section and content) Goals may be documented in a n alternate sectionGoals may be documented in an alternate sectionGoals may be documented in an alternate sectionGoals may be documented in an alternate sectionGoals may be documented in an alternate sectionGoals may be documented in an alternate sectionGoals may be documented in an alternate sectionGoals may be documented in an alternate sectionGoals may be documented in an alternate sectionGoals may be documented in an alternate sectionGoals may be documented in an alternate sectionGoals may be documented in an alternate section Care Teams (unrecognized sec tion and content) Him Assistant Relationship Specialty Start Date End Date Rigoberto Durand MD PCP - General Family Medicine 04/07/18 Team Status: Active Member Role Status Dates Dr. Rigoberto Durand MD Family Provider Active Dr. Rigoberto Durand MD Primary Care Provider Active Team Status: Inactive Member Role Status Dates Dr. Rigoberto Durand MD Primary Care Provi eder, Attending Provider, Referring Provider Active Team Status: Inactive Member Role Status Dates Dr. Rigoberto Durand MD Primary Care Provider, Attending Provider Active Him Assistant Relationship Specialty Start Date End Date [place] Roth [address] [place] [phone] PCP - General 09/05/20 Him Assistant Relationship Specialty Start Date End Date Rigoberto Durand MD PCP - General Family Medicine 03/11/13 Him Assistant Relationship Specialty Start Date End Date BrendaGibson raygoza [address] [place] [phone] PCP - General 09/05/20 Team Status: Inactive Member Role Status Dates Dr. Rigoberto Durand MD Primary Care Provider Active Dr. Shaun Taveras DO Emergency Provider Active Him Assistant Relationship Specialty Start Date End Date Gibson Roth [address] [place] [address] PCP - General 09/05/20 Him Assistant Relationship Specialty Start Date End Date Gibson Roth [address] [place] [phone] PCP - General 09/05/20 Him Assistant Relationship Specialty Start Date End Date Gibson Roth [address] [place] [phone] PCP - General 09/05/20 Him Assistant Relationship Specialty Start Date End Date Gibson Roth [address] [place] [phone] PCP - General 09/05/20 Him Assistant Relationship Specialty Start Date End Date Gibson Roth [address] [place] [phone] PCP - General 09/05/20 Him Assistant Relationship Specialty Start Date End Date Gibson Roth [address] [place] [phone] PCP - General 09/05/20 Him Assistant Relationship Specialty Start Date End Date Gibson Roth [address] [place] [phone] PCP - General 09/05/20 Team Status: Inactive Member Role Status Dates Dr. Rigoberto Durand MD Primary Care Provider Active Start: September 27, 2024 End: September 27, 2024 Dr. Rigoberto Durand MD Attending Provider Active Start: September 27, 2024 End: September 27, 2024 Team Status: Active Member Role Status Dates Dr. Rigoberto Durand MD Primary Care Provider Active Team Status: Inactive Member Role Status Dates Dr. Rigoberto Durand MD Primary Care Provider Active Start: December 12, 2024 End: December 12, 2024 Dr. Harvinder George DO Emergency Provider Active Start: December 12, 2024 End: December 12, 2024 Him Assistant Relationship Specialty Start Date End Date [place] Roth [address] [place] [phone] PCP - General 09/05/20 Him Assistant Relationship Specialty Start Date End Date [place] Roth [address] [place] [phone] PCP - General 09/05/20 Him Assistant Relationship Specialty Start Date End Date [place] Roth [address] [place] [phone] PCP - General 09/05/20 Jany Bonilla, RN Registered Nurse Manager Port Manager 02/02/25 Him Assistant Relationship Specialty Start Date End Date [place] Roth [address] [place] [phone] PCP - General 09/05/20 Jany Bonilla, RN Registered Nurse Manager Port Manager 02/02/25 Him Assistant Relationship Specialty Start Date End Date Gibson Roth [address] [place] [phone] PCP - General 09/05/20 Jany Bonilla, RN Registered Nurse Manager Port Manager 02/02/25 Him Assistant Relationship Specialty Start Date End Date Brinda Bourne MD [address] [place] [address] [address] [place] [id number] PCP - General Family Medicine 02/17/25 Jany Bonilla, RN Registered Nurse Manager Port Manager 02/02/25 Him Assistant Relationship Specialty Start Date End Date Brinda Borune MD [address] [place] [address] [address] [place] [id number] PCP - General Family Medicine 02/17/25 Jany Bonilla, RN Registered Nurse Manager Port Manager 02/02/25 Him Assistant Relationship Specialty Start Date End Date Brinda Bourne MD [address] [place] [address] [address] [place] [id number] PCP - General Family Medicine 02/17/25 Jany Bonilla, RN Registered Nurse Manager Port Manager 02/02/25 Team Status: Active Member Role/Relationship Status Dates Dr. Rigoberto Durand MD Primary Care Provider Active Team Status: Inactive Member Role/Relationship Status Dates Dr. Rigoberto Durand MD Primary Care Provider Active Start: December 12, 2024 End: December 12, 2024 Dr. Harvinder George DO Attending Provider Active Start: December 12, 2024 End: December 12, 2024 Dr. Harvinder George DO Emergency Provider Active Start: December 12, 2024 End: December 12, 2024 Team Status: Inactive Member Role/Relationship Status Dates Dr. Rigoberto Durand MD Primary Care Provider Active Start: April 01, 2025 End: April 01, 2025 Dr. Dax Romero DO Emergency Provider Active Start: April 01, 2025 End: April 01, 2025 Source Comments (unrecognize d section and content) In the event this informatio n is protected by the Federal Confidentiality of Alcohol and Drug Abuse Patient Records regulations: The Federal rules restrict any use of the information to criminally investigate or prosecute any alcohol or drug abuse patient.[facility] Hospital[facility] the event this information is protected by the Federal Confidentiality of Alcohol and Drug Abuse Patient Records regulations: The Federal rules restrict any use of the information to criminally investigate or prosecute any alcohol or drug abuse patient.[facility] Scheduled Active and Recently Administ ered Medications (unrecognized section and content) Medication Order 01/30/2025 01/31/2025 02/01/2025 calcium gluconate 2000 mg in 100 mL IVPB premix (COMPLETED) 2,000 mg, IntraVENous, at 50 mL/hr, Administer over 2 Hours, Once, On Fri01/31/25 at 1400, For 1 dose, premix bag 1440 (New Bag - Provider: Aleksandra Adams RN)1713 (Stopped - Provider: Aleksandra Adams RN)1729 (Stopped - Provider: Aleksandra Adams RN) cholecalciferol (Vitamin D-3) tablet 25 mcg 25 mcg, Oral, Daily, First dose on Fri01/28/25 at 0900 0837 (Given - Provider: Dania Ledesma RN) 0930 (Given - Provider: Aleksandra Adams RN) 1000 (Given - Provider: Randy Cornelius, JAIMIE) clotrimazole (Lotrimin) 1 % cream Topical, 2 times daily, First dose on Fri01/29/25 at 1430, To inguinal folds in the groin 0843 (Given - Provider: Dania Ledesma RN)2001 (Given - Provider: Charisma Kaminski RN) 931 (Given - Provider: Aleksandra Adams RN)2020 (Given - Provider: Marshall Glez, RN) 100 (Given - Provider: Randy Cornelius, RN) cyanocobalamin (Vitamin B-12) tablet 1,000 mcg 1,000 mcg, Oral, Daily, First dose on Fri01/28/25 at 0900 0838 (Given - Provider: Dania Ledesma RN) 0930 (Given - Provider: Aleksandra Adams RN) 1000 (Given - Provider: Randy Cornelius, RN) ferrous sulfate tablet 325 mg 325 mg, Oral, Daily with breakfast, First dose on Fri01/28/25 at 0835 0837 (Given - Provider: Daina Ledesma RN) 0930 (Given - Provider: Aleksandra Adams RN) 1000 (Given - Provider: Randy Cornelius, JAIMIE) furosemide (Lasix) injection 80 mg (CANCELED) 80 mg, IntraVENous, 2 times daily, First dose (after last modification) on Fri01/28/25 at 2100 0837 (Given - Provider: Dania Ledesma, JAIMIE)2000 (Given - Provider: Charisma Kaminski RN) 930 (Given - Provider: Aleksandra Adams RN)2020 (Given - Provider: Marshall Glez RN) furosemide (Lasix) injection 80 mg (CANCELED) 80 mg, IntraVENous, 2 times daily, First dose (after last modification) on Fri02/01/25 at 0830 0959 (Given - Provider: Randy Cornelius, JAIMIE) gabapentin (Neurontin) capsule 100 mg 100 mg, Oral, 2 times daily, First dose on Fri01/28/25 at 0900 0837 (Given - Provider: Dania Ledesma RN)2000 (Given - Provider: Charisma Kaminski RN) 0930 (Given - Provider: Aleksandra Adams, RN)2020 (Given - Provider: Marshall Glez RN) 1000 (Given - Provider: Randy Cornelius, JAIMIE) glipiZIDE (Glucotrol) tablet 2.5 mg 2.5 mg, Oral, Daily before breakfast, First dose on Fri01/29/25 at 0600, Substituted for glimepiride (Amaryl)., On hold since Fri01/29/2025 at 1333 until manually unheld 0600 (Dose Auto Held - Provider: Jeremy Sanchez DO) 0600 (Dose Auto Held - Provider: Jeremy Sanchez DO) 0600 (Dose Auto Held - Provider: Jeremy Sanchez DO)2021 (Unheld by provider - Provider: Automatic Discharge Provider) heparin injection 5,000 Units 5,000 Units, SubCUTAneous, Every 8 hours scheduled (3 times per day), First dose on Fri01/29/25 at 1400 0838 (Given - Provider: Dania Ledesma RN)1638 (Given - Provider: Dania Ledesma RN) 0000 (Given - Provider: Charisma Kaminski RN)0930 (Given - Provider: Aleksandra Adams, RN)1711 (Given - Provider: Aleksandra Adams, RN)2342 (Given - Provider: Marshall Glez RN) 1000 (Given - Provider: Randy Cornelius, JAIMIE)1600 (Not Given - Provider: Randy Cornelius RN - Reason: Patient/family refused - Comment: d/c home today and would like to not take at this time) Insulin Lispro (Humalog) injection 0-12 Units(Linked Group 1) 0-12 Units, SubCUTAneous, 3 times daily with meals, First dose on Fri01/28/25 at 0835, Medium Dose Correction Algorithm Glucose: Dose: LESS than 150 No Insulin 150-199 2 Units 200-249 4 Units 250-299 6 Units 300-349 8 Units 350-400 10 Units Above 400 12 Units 0840 (Not Given - Provider: Dania Ledesma RN - Reason: Order parameters not met)1200 (Not Given - Provider: Dania Ledesma RN - Reason: Order parameters not met)1715 (Not Given - Provider: Dania Ledesma RN - Reason: Patient/family refused) 0932 (Not Given - Provider: Aleksandra Adams RN - Reason: Order parameters not met)1149 (Not Given - Provider: Aleksandra Adams RN - Reason: Order parameters not met)1654 (Not Given - Provider: Aleksandra Adams RN - Reason: Order parameters not met) 0820 (Not Given - Provider: Randy Cornelius RN - Reason: Order parameters not met)1235 (Not Given - Provider: Randy Cornelius RN - Reason: Order parameters not met)1756 (Not Given - Provider: Randy Cornelius RN - Reason: Other - Comment: pt d/c home want to wait and take at home before dinner) Insulin Lispro (Humalog) injection 0-12 Units(Linked Group 1) 0-12 Units, SubCUTAneous, Nightly, First dose on Fri01/28/25 at 2100, If eating or bolus tube feeding: Medium Dose Correction Algorithm Glucose: Dose: LESS than 150 No Insulin 150-199 2 Units 200-249 4 Units 250-299 6 Units 300-349 8 Units 350-400 10 Units Above 400 12 Units 2001 (Not Given - Provider: Charisma Kaminski RN - Reason: Order parameters not met) 2032 (Not Given - Provider: Marshall Glez RN - Reason: Contraindicated) levothyroxine (Synthroid, Levoxyl) tablet 25 mcg 25 mcg, Oral, Daily, First dose on Fri01/28/25 at 0900, Tube feeding (TF) interaction, obtain physician order to manage, recommend holding TF for 30 minutes before and after dose. 0838 (Given - Provider: Dania Ledesma RN) 0930 (Given - Provider: Aleksandra Bryan, RN) 1000 (Given - Provider: Randy Cornelius RN) magnesium sulfate IVPB premix 2,000 mg (COMPLETED) 2,000 mg, IntraVENous, at 25 mL/hr, Administer over 2 Hours, Once, On Fri01/30/25 at 0730, For 1 dose, Recommended infusion rate not to exceed 1,000 mg (milligrams) per hour. 0837 (New Bag - Provider: Dania Ledesma RN)1144 (Stopped - Provider: Dania Ledesma RN) magnesium sulfate IVPB premix 2,000 mg (COMPLETED) 2,000 mg, IntraVENous, at 25 mL/hr, Administer over 2 Hours, Once, On Fri01/30/25 at 1800, For 1 dose, Recommended infusion rate not to exceed 1,000 mg (milligrams) per hour. 182 (New Bag - Provider: Dania Ledesma RN)2031 (Stopped - Provider: Charisma Kaminski RN) metoprolol succinate XL (Toprol-XL) 24 hr tablet 100 mg 100 mg, Oral, Daily, First dose on Fri01/28/25 at 0900, Do not crush or chew. 0838 (Given - Provider: Dania Ledesma RN) 0930 (Given - Provider: Aleksandra Adams RN) 1000 (Given - Provider: Randy Cornelius RN) pantoprazole (ProtoNix) EC tablet 40 mg 40 mg, Oral, Daily before breakfast, First dose on Fri01/29/25 at 0600, Do not crush, chew, or split. 0838 (Given - Provider: Dania Ledesma RN) 0529 (Given - Provider: Charisma Kaminski RN) 0534 (Given - Provider: Marshall Glez RN) potassium chloride CR (Klor-Con M10) ER tablet 40 mEq (COMPLETED) 40 mEq, Oral, Once, On Fri01/30/25 at 0730, For 1 dose, Best given with food and plenty of water to minimize gastric irritation. Do not crush or chew. 0837 (Given - Provider: Dania Ledesma RN) potassium chloride CR (Klor-Con M10) ER tablet 40 mEq (COMPLETED) 40 mEq, Oral, Once, On 7/14/25 at 1400, For 1 dose, May give alternative linked oral order (ordered as effervescent, packet, or liquid solution) if patient unable to tolerate tablet. K Lab Replacement Action 3.1 to 3.5 40 mEq ORAL x 1 Under 3.1 Refer to IV replacement protocol Recheck K level in AM. Protocol not for use in patients with CrCl less than 30 mL/min. Do not crush or chew. 1442 (Given - Provider: Aleksandra Adams, JAIMIE) sacubitril-valsartan (Entresto) 24-26 MG per tablet 1 tablet 1 tablet, Oral, 2 times daily, First dose on Fri01/28/25 at 0900, Contraindicated in combination with ROLO inhibitors. Ensure a minimum of 36 hours between any ROLO inhibitor dose and sacubitril-valsartan. 0924 (Given - Provider: Dania Ledesma RN)2000 (Given - Provider: Charisma Kaminski, JAIMIE) 09 (Given - Provider: Aleksandra Adams, RN)2020 (Given - Provider: Marshall Glez RN) 100 (Given - Provider: Randy Cornelius, JAIMIE) sertraline (Zoloft) tablet 25 mg 25 mg, Oral, Daily, First dose on Fri01/28/25 at 0900 0838 (Given - Provider: Dania Ledesma RN) 0930 (Given - Provider: Aleksandra Adams RN) 1001 (Given - Provider: Randy Cornelius, JAIMIE) sucralfate (Carafate) tablet 1 g 1 g, Oral, 2 times daily before meals, First dose on Fri01/28/25 at 0835, Give on an empty stomach (1 hr before meals, at bedtime). Separate all other meds by at least 2 hours (exception: antacids may be given only 30 minutes apart). 0843 (Given - Provider: Dania Ledesma RN)1638 (Given - Provider: Dania Ledesma RN) 0529 (Given - Provider: Charisma Kaminski, JAIMIE)1711 (Given - Provider: Aleksandra Adams RN) 1000 (Given - Provider: Randy Cornelius, JAIMIE - Comment: group meds with care)1755 (Not Given - Provider: Randy Cornelius RN - Reason: Other - Comment: pt d/c home want to wait and take at home before dinner) tamsulosin (Flomax) 24 hr capsule 0.4 mg 0.4 mg, Oral, Daily, First dose on Fri01/28/25 at 0900, Do not crush, chew, or split. 0837 (Given - Provider: Dania Ledesma, RN) 0931 (Given - Provider: Aleksandra Adams, RN) 1000 (Given - Provider: Randy Cornelius, RN) therapeutic multivitamin-minerals (Theragran-M) tablet 1 tablet, Oral, Daily, First dose on Fri01/28/25 at 0900 0837 (Given - Provider: Dania Ledesma, JAIMIE) 0930 (Given - Provider: Aleksandra Adams, JAIMIE) 1000 (Given - Provider: Randy Cornelius, JAIMIE) torsemide (Demadex) tablet 40 mg 40 mg, Oral, Daily, First dose (after last modification) on Fri02/02/25 at 0900 PRN Medication Order 01/30/2025 01/31/2025 02/01/2025 carboxymethylcellulose PF (Refresh Plus) 0.5 % ophthalmic solution 1 drop 1 drop, Both Eyes, As needed, dry eyes, Starting on Fri01/31/25 at 1227 1442 (Given - Provider: Aleksandra Adams, JAIMIE) dextrose 5 % infusion 100 mL/hr, IntraVENous, PRN, Blood sugar less than 70mg/dL, Starting on Fri01/28/25 at 0831, Start infusion following administration of dextrose 50% or glucagon. dextrose 50 % solution 12.5 g 12.5 g, IntraVENous, PRN, low blood sugar, Blood glucose less than 70 mg/dL and patient NOT ALERT or NPO., Starting on Fri01/28/25 at 0831, If patient does not respond within 5 minutes, repeat dose x1. Start D5W at 100 mL/hour until ordering provider can be reached. Repeat blood glucose in 15 minutes. If blood glucose is less than 70 mg/dL, repeat treatment and recheck blood glucose in 15 minutes x2. If using Glucostabilizer, dose as instructed per system. glucagon (human recombinant) injection 1 mg 1 mg, IntraMUSCular, PRN, low blood sugar, Blood glucose less than 70 mg/dL and patient NOT ALERT or NPO and does not have IV access., Starting on Fri01/28/25 at 0831, After administration, attempt intravenous access and start D5W at 100 mL/hr. Repeat blood glucose in 15 minutes x2 and notify provider. glucose oral gel 15 g 15 g, Oral, As needed, low blood sugar, Starting on Fri01/28/25 at 0831, If blood glucose less than 50 mg/dL and patient ALERT and NOT NPO, give 2 tubes glucose gel. If blood glucose less than 70 mg/dL and patient ALERT and NOT NPO, give 1 tube glucose gel. Repeat blood glucose in 15 minutes. If blood glucose is less than 70 mg/dL, repeat treatment and recheck blood glucose in 15 minutes x2 and notify provider. loperamide (Imodium) capsule 2 mg 2 mg, Oral, 4 times daily PRN, diarrhea, Starting on Fri01/29/25 at 1610, After each loose stool perflutren protein A microsphere (Optison) 3 mL in sodium chloride (PF) 0.9 % 10 mL IV (COMPLETED) 0-10 mL, IntraVENous, IMG once PRN, other, Suboptimal echo image, Starting on Fri01/31/25 at 1153, For 1 dose, CV Procedural Medications, Administer via slow IVP for suboptimal echocardiogram enhancement. May administer as divided doses to reach optimal image enhancement 1154 (Given - Provider: Adenike Robledo RN) Linked Groups Order Group 1: Insulin Lispro (Humalog) injection 0-12 UnitsJump to med 0-12 Units, SubCUTAneous, 3 times daily with meals, First dose on Fri01/28/25 at 0835, Medium Dose Correction Algorithm Glucose: Dose: LESS than 150 No Insulin 150-199 2 Units 200-249 4 Units 250-299 6 Units 300-349 8 Units 350-400 10 Units Above 400 12 Units And Insulin Lispro (Humalog) injection 0-12 UnitsJump to med 0-12 Units, SubCUTAneous, Nightly, First dose on Fri01/28/25 at 2100, If eating or bolus tube feeding: Medium Dose Correction Algorithm Glucose: Dose: LESS than 150 No Insulin 150-199 2 Units 200-249 4 Units 250-299 6 Units 300-349 8 Units 350- 400 10 Units Above 400 12 Units Scheduled Medication Order 02/13/2025 02/14/2025 02/15/2025 B complex-vitamin C-folic acid (Nephrocaps) capsule 1 capsule 1 capsule, Oral, Daily, First dose on [place] 02/10/25 at 0900 0909 (Given - Provider: Amelia Adams RN) 0833 (Given - Provider: Micah Devries RN) 0936 (Given - Provider: Micah Devries RN) cefepime (Maxipime) 2,000 mg in sodium chloride 0.9 % 50 mL IVPB Mini-Bag Plus 2,000 mg, IntraVENous, at 12.5 mL/hr, Administer over 4 Hours, Every 12 hours, First dose on [place] 02/10/25 at 1600, Dose Optimization BRAD <= 2 mcg/ml Mini-Bag Plus bag, Suspected Indication (Select all that apply): Skin and Soft Tissue Infection 0525 (New Bag - Provider: Irene Abraham RN)0935 (Stopped - Provider: Amelia Adams RN)1601 (New Bag - Provider: Amelia Adams RN)2050 (Stopped - Provider: Shawna Montalvo RN) 0413 (New Bag - Provider: Shawna Montalvo RN)0834 (Stopped - Provider: Micah Devries RN)1542 (New Bag - Provider: Micah Devries RN)1942 (Stopped - Provider: Geri Parson RN) 0349 (New Bag - Provider: Geri Parson RN)0811 (Stopped - Provider: Micah Devries RN)1600 (Canceled Entry - Provider: Automatic Discharge Provider - Comment: Automatically canceled at discontinue of medication order) cholecalciferol (Vitamin D-3) tablet 50 mcg 50 mcg, Oral, Daily, First dose on [place] 02/10/25 at 0900 0910 (Given - Provider: Amelia Adams RN) 0833 (Given - Provider: Micah Devries RN) 0935 (Given - Provider: Micah Devries RN) cyanocobalamin (Vitamin B-12) tablet 1,000 mcg 1,000 mcg, Oral, Daily, First dose on [place] 02/10/25 at 0900 0909 (Given - Provider: Amelia Adams RN) 0833 (Given - Provider: Micah Devries RN) 0939 (Given - Provider: Micah Devries RN) enoxaparin (Lovenox) syringe 40 mg 40 mg, SubCUTAneous, Every 24 hours scheduled (Daily), First dose on Fri02/10/25 at 0900, Indication of Use: Prophylaxis-DVT/PE, Indications: Prophylaxis of Venous Thromboembolism 0910 (Given - Provider: Amelia Adams RN) 0834 (Given - Provider: Micah Devries RN - Comment: abd) 0937 (Given - Provider: Micah Devries RN) ferrous sulfate tablet 325 mg 325 mg, Oral, Daily with breakfast, First dose on Fri02/10/25 at 0800 0909 (Given - Provider: Amelia Adams RN) 0833 (Given - Provider: Micah Devries RN) 0943 (Given - Provider: Micah Devries RN) gabapentin (Neurontin) capsule 100 mg 100 mg, Oral, 2 times daily, First dose on Fri02/10/25 at 0900 0910 (Given - Provider: Amelia Adams RN)210 (Given - Provider: Shawna Montalvo RN) 08 (Given - Provider: Micah Devries RN)204 (Given - Provider: Geri Parson RN) 0937 (Given - Provider: Micah Devries RN) glipiZIDE (Glucotrol) tablet 2.5 mg 2.5 mg, Oral, Daily before breakfast, First dose on Fri02/10/25 at 0700, Substituted for glimepiride (Amaryl). 0534 (Given - Provider: Irene Abraham RN) 0606 (Given - Provider: Shawna Montalvo, JAIMIE) 0624 (Given - Provider: Geri Parson, JAIMIE) Insulin Lispro (Humalog) injection 0-12 Units(Linked Group 1) 0-12 Units, SubCUTAneous, 3 times daily with meals, First dose on Fri02/10/25 at 0800, Medium Dose Correction Algorithm Glucose: Dose: LESS than 150 No Insulin 150-199 2 Units 200-249 4 Units 250-299 6 Units 300-349 8 Units 350-400 10 Units Above 400 12 Units 0807 (Not Given - Provider: Amelia Adams RN - Reason: Order parameters not met)1206 (Not Given - Provider: Amelia Adams RN - Reason: Order parameters not met)1745 (Not Given - Provider: Amelia Adams RN - Reason: Order parameters not met) 0752 (Not Given - Provider: Micah Devries RN - Reason: Other - Comment: bs [phone] (Not Given - Provider: Micah Devries RN - Reason: Other - Comment: bs [phone] (Not Given - Provider: iMcah Devries RN - Reason: Other - Comment: bs 85) 0811 (Not Given - Provider: Micah Devries RN - Reason: Other - Comment: BS 69 no hypoglycemic symtoms noted pt eating will recheck)1136 (Not Given - Provider: Micah Devries RN - Reason: Other - Comment: bs 118)1700 (Canceled Entry - Provider: Automatic Discharge Provider - Comment: Automatically canceled at discontinue of medication order) Insulin Lispro (Humalog) injection 0-12 Units(Linked Group 1) 0-12 Units, SubCUTAneous, Nightly, First dose on [place] 02/10/25 at 2100, If eating or bolus tube feeding: Medium Dose Correction Algorithm Glucose: Dose: LESS than 150 No Insulin 150-199 2 Units 200-249 4 Units 250-299 6 Units 300-349 8 Units 350-400 10 Units Above 400 12 Units 2236 (Not Given - Provider: Shawna Montalvo RN - Reason: Order parameters not met) 2033 (Not Given - Provider: Geri Parson RN - Reason: Order parameters not met) levothyroxine (Synthroid, Levoxyl) tablet 25 mcg 25 mcg, Oral, Daily, First dose on Fri02/10/25 at 0900, Tube feeding (TF) interaction, obtain physician order to manage, recommend holding TF for 30 minutes before and after dose. 0531 (Given - Provider: Irene Abraham RN) 0607 (Given - Provider: Shawna Montalvo RN) 0624 (Given - Provider: Geri Parson RN) metoprolol succinate XL (Toprol-XL) 24 hr tablet 100 mg 100 mg, Oral, Daily, First dose on Fri02/10/25 at 0900, Do not crush or chew. 0909 (Given - Provider: Amelia Adams RN) 0834 (Given - Provider: Micah Devries RN) 0937 (Given - Provider: Micah Devries RN) pantoprazole (ProtoNix) EC tablet 40 mg 40 mg, Oral, Daily before breakfast, First dose on Fri02/10/25 at 0700, Do not crush, chew, or split. 0531 (Given - Provider: Irene Abraham RN) 0607 (Given - Provider: Shawna Montalvo RN) 0624 (Given - Provider: Geri Parson RN) rosuvastatin (Crestor) tablet 20 mg 20 mg, Oral, Daily, First dose on Fri02/10/25 at 0900 0909 (Given - Provider: Amelia Adams RN) 0833 (Given - Provider: Micah Devries RN) 0937 (Given - Provider: Micah Devries RN) sacubitril-valsartan (Entresto) 24-26 MG per tablet 1 tablet 1 tablet, Oral, 2 times daily, First dose on Fri02/10/25 at 0900, Contraindicated in combination with ROLO inhibitors. Ensure a minimum of 36 hours between any ROLO inhibitor dose and sacubitril-valsartan. 0909 (Given - Provider: Amelia Adams RN)2105 (Given - Provider: Shawna Montalvo RN) 0833 (Given - Provider: Micah Devries RN)2041 (Given - Provider: Geri Parson, JAIMIE) 0935 (Given - Provider: Micah Devries RN) sertraline (Zoloft) tablet 25 mg 25 mg, Oral, Daily, First dose on Fri02/10/25 at 0900 0910 (Given - Provider: Amelia Adams RN) 0833 (Given - Provider: Micah Devries RN) 0937 (Given - Provider: Micah Devries RN) sucralfate (Carafate) tablet 1 g 1 g, Oral, 2 times daily before meals, First dose on Fri02/10/25 at 0700, Give on an empty stomach (1 hr before meals, at bedtime). Separate all other meds by at least 2 hours (exception: antacids may be given only 30 minutes apart). 0531 (Given - Provider: Irene Abraham, JAIMIE)1601 (Given - Provider: Amelia Adams RN) 0606 (Given - Provider: Shawna Montalvo, JAIMIE)1542 (Given - Provider: Micah Devries, JAIMIE) 0624 (Given - Provider: Geri Parson RN)1600 (Canceled Entry - Provider: Automatic Discharge Provider - Comment: Automatically canceled at discontinue of medication order) tamsulosin (Flomax) 24 hr capsule 0.4 mg 0.4 mg, Oral, Daily, First dose on [place] 02/10/25 at 0900, Do not crush, chew, or split. 0910 (Given - Provider: Amelia Adams RN) 0834 (Given - Provider: Micah Devries RN) 0937 (Given - Provider: Micah Devries RN) torsemide (Demadex) tablet 40 mg 40 mg, Oral, Daily, First dose on [place] 02/10/25 at 0900, On hold since Fri02/15/2025 at 0814 until manually unheld 0909 (Given - Provider: Amelia Adams RN) 0833 (Given - Provider: Micah Devries, JAIMIE) 0814 (Held by provider - Provider: Lisa Muniz DO - Reason: Fluid imbalance)0900 (Dose Auto Held - Provider: Lisa Muniz DO)1824 (Unheld by provider - Provider: Automatic Discharge Provider) PRN Medication Order 02/13/2025 02/14/2025 02/15/2025 acetaminophen (Tylenol) suppository 650 mg(Linked Group 2) 650 mg, Rectal, Every 6 hours PRN, fever, For temp greater than 100.4 F (38 C), Starting on Tracy 02/10/25 at 0621, Administer if oral route cannot be used. Maximum dose of acetaminophen is 4000 mg from all sources in 24 hours. acetaminophen (Tylenol) tablet 650 mg(Linked Group 2) 650 mg, Oral, Every 6 hours PRN, mild pain (1-3), fever, For temp greater than 100.4 F (38 C), Starting on [place] 02/10/25 at 0621, Maximum dose of acetaminophen is 4000 mg from all sources in 24 hours. dextrose 5 % infusion 100 mL/hr, IntraVENous, PRN, Blood sugar less than 70mg/dL, Starting on [place] 02/10/25 at 0621, Start infusion following administration of dextrose 50% or glucagon. dextrose 50 % solution 12.5 g 12.5 g, IntraVENous, PRN, low blood sugar, Blood glucose less than 70 mg/dL and patient NOT ALERT or NPO., Starting on [place] 02/10/25 at 0621, If patient does not respond within 5 minutes, repeat dose x1. Start D5W at 100 mL/hour until ordering provider can be reached. Repeat blood glucose in 15 minutes. If blood glucose is less than 70 mg/dL, repeat treatment and recheck blood glucose in 15 minutes x2. If using Glucostabilizer, dose as instructed per system. glucagon (human recombinant) injection 1 mg 1 mg, IntraMUSCular, PRN, low blood sugar, Blood glucose less than 70 mg/dL and patient NOT ALERT or NPO and does not have IV access., Starting on [place] 02/10/25 at 0621, After administration, attempt intravenous access and start D5W at 100 mL/hr. Repeat blood glucose in 15 minutes x2 and notify provider. glucose oral gel 15 g 15 g, Oral, As needed, low blood sugar, Starting on [place] 02/10/25 at 0621, If blood glucose less than 50 mg/dL and patient ALERT and NOT NPO, give 2 tubes glucose gel. If blood glucose less than 70 mg/dL and patient ALERT and NOT NPO, give 1 tube glucose gel. Repeat blood glucose in 15 minutes. If blood glucose is less than 70 mg/dL, repeat treatment and recheck blood glucose in 15 minutes x2 and notify provider. loperamide (Imodium) capsule 2 mg 2 mg, Oral, 4 times daily PRN, diarrhea, Starting on 02/12/25 at 1414, After each loose stool 1013 (Given - Provider: Amelia Adams RN) magnesium sulfate IVPB 4,000 mg(Linked Group 3) 4,000 mg, IntraVENous, at 25 mL/hr, Administer over 4 Hours, PRN, Magnesium Replacement, Starting on 02/12/25 at 0615, Mg Lab Replacement Action 1.4-1.6 2 gram IVPB x 1 doses (2 grams total) 1.0-1.3 4 gram IVPB x 1 doses (4 grams total) Less than 1.0 CALL PHYSICIAN and 4 gram IVPB x 1 doses (4 grams total) Infuse at 1 gram/hr. Repeat Mag level next AM. Not for use in Patients with CrCl less than 30 mL/min. magnesium sulfate IVPB premix 2,000 mg(Linked Group 3) 2,000 mg, IntraVENous, at 25 mL/hr, Administer over 2 Hours, PRN, Magnesium Replacement, Starting on 02/12/25 at 0615, Mg Lab Replacement Action 1.4-1.6 2 gram IVPB x 1 doses (2 grams total) 1.0-1.3 4 gram IVPB x 1 doses (4 grams total) Less than 1.0 CALL PHYSICIAN and 4 gram IVPB x 1 doses (4 grams total) Infuse at 1 gram/hr. Repeat Mag level next AM. Not for use in Patients with CrCl less than 30 mL/min. Melatonin disintegrating tablet 10 mg 10 mg, Oral, Nightly PRN, sleep, Starting on Fri02/11/25 at 4 2041 (Given - Provider: Geri Parson RN) ondansetron (Zofran) injection 4 mg(Linked Group 4) 4 mg, IntraVENous, Every 6 hours PRN, nausea, vomiting, Starting on [place] 02/10/25 at 0621, 1st Line. Give IV if patient is unable to take orally. If inadequate response within 60 minutes, proceed to next-line agent or contact provider if no further options ordered. 0943 (See Alternative - Provider: Micah Devries, JAIMIE) ondansetron ODT (Zofran-ODT) disintegrating tablet 4 mg(Linked Group 4) 4 mg, Oral, Every 8 hours PRN, nausea, vomiting, Starting on [place] 02/10/25 at 0621, 1st Line. If inadequate response within 60 minutes, proceed to next-line agent or contact provider if no further options ordered. Patient should allow tablet to dissolve on tongue. Do not remove from blister pack until just before administering. 0943 (Given - Provider: Micah Devries, JAIMIE) potassium chloride (Klor-Con) packet 40 mEq(Linked Group 5) 40 mEq, Oral, PRN, Per Potassium Replacement Protocol, Starting on 02/12/25 at 0615, Administer as alternative if patient unable to tolerate oral tablet. K Lab Replacement Action 3.1 to 3.5 40 mEq ORAL x 1 Under 3.1 Refer to IV replacement protocol Recheck K level in AM. Protocol not for use in patients with CrCl less than 30 mL/min. Dissolve each packet in 4 ounces of water = 5 mEq per 1 oz fluid. potassium chloride 40 mEq in sodium chloride 0.9 % 500 mL IVPB(Linked Group 5) 40 mEq, IntraVENous, at 130 mL/hr, Administer over 4 Hours, PRN, Per Potassium Replacement Protocol, Starting on 02/12/25 at 0615, K Lab Replacement Action 2.7 to 3.0 40 mEq in 500 mL IVPB Under 2.7 CALL PROVIDER and administer 40 mEq in 500 mL IVPB Infuse at 10 mEq/hr. Repeat Potassium lab 1 hour after final administration. Protocol not for use in patients with CrCl less than 30 mL/min. potassium chloride CR (Klor-Con M10) ER tablet 40 mEq(Linked Group 5) 40 mEq, Oral, PRN, Per Potassium Replacement Protocol, Starting on 02/12/25 at 0615, May give alternative linked oral order (ordered as effervescent, packet, or liquid solution) if patient unable to tolerate tablet. K Lab Replacement Action 3.1 to 3.5 40 mEq ORAL x 1 Under 3.1 Refer to IV replacement protocol Recheck K level in AM. Protocol not for use in patients with CrCl less than 30 mL/min. Do not crush or chew. Linked Groups Order Group 1: Insulin Lispro (Humalog) injection 0-12 UnitsJump to med 0-12 Units, SubCUTAneous, 3 times daily with meals, First dose on [place] 02/10/25 at 0800, Medium Dose Correction Algorithm Glucose: Dose: LESS than 150 No Insulin 150-199 2 Units 200-249 4 Units 250-299 6 Units 300-349 8 Units 350-400 10 Units Above 400 12 Units And Insulin Lispro (Humalog) injection 0-12 UnitsJump to med 0-12 Units, SubCUTAneous, Nightly, First dose on Tracy 02/10/25 at 2100, If eating or bolus tube feeding: Medium Dose Correction Algorithm Glucose: Dose: LESS than 150 No Insulin 150-199 2 Units 200-249 4 Units 250-299 6 Units 300-349 8 Units 350- 400 10 Units Above 400 12 Units Group 2: acetaminophen (Tylenol) tablet 650 mgJump to med 650 mg, Oral, Every 6 hours PRN, mild pain (1-3), fever, For temp greater than 100.4 F (38 C), Starting on Tracy 02/10/25 at 0621, Maximum dose of acetaminophen is 4000 mg from all sources in 24 hours. Or acetaminophen (Tylenol) suppository 650 mgJump to med 650 mg, Rectal, Every 6 hours PRN, fever, For temp greater than 100.4 F (38 C), Starting on Tracy 02/10/25 at 0621, Administer if oral route cannot be used. Maximum dose of acetaminophen is 4000 mg from all sources in 24 hours. Group 3: magnesium sulfate IVPB premix 2,000 mgJump to med 2,000 mg, IntraVENous, at 25 mL/hr, Administer over 2 Hours, PRN, Magnesium Replacement, Starting on 02/12/25 at 0615, Mg Lab Replacement Action 1.4-1.6 2 gram IVPB x 1 doses (2 grams total) 1.0-1.3 4 gram IVPB x 1 doses (4 grams total) Less than 1.0 CALL PHYSICIAN and 4 gram IVPB x 1 doses (4 grams total) Infuse at 1 gram/hr. Repeat Mag level next AM. Not for use in Patients with CrCl less than 30 mL/min. Or magnesium sulfate IVPB 4,000 mgJump to med 4,000 mg, IntraVENous, at 25 mL/hr, Administer over 4 Hours, PRN, Magnesium Replacement, Starting on 02/12/25 at 0615, Mg Lab Replacement Action 1.4-1.6 2 gram IVPB x 1 doses (2 grams total) 1.0-1.3 4 gram IVPB x 1 doses (4 grams total) Less than 1.0 CALL PHYSICIAN and 4 gram IVPB x 1 doses (4 grams total) Infuse at 1 gram/hr. Repeat Mag level next AM. Not for use in Patients with CrCl less than 30 mL/min. Group 4: ondansetron ODT (Zofran-ODT) disintegrating tablet 4 mgJump to med 4 mg, Oral, Every 8 hours PRN, nausea, vomiting, Starting on Tracy 02/10/25 at 0621, 1st Line. If inadequate response within 60 minutes, proceed to next-line agent or contact provider if no further options ordered. Patient should allow tablet to dissolve on tongue. Do not remove from blister pack until just before administering. Or ondansetron (Zofran) injection 4 mgJump to med 4 mg, IntraVENous, Every 6 hours PRN, nausea, vomiting, Starting on Tracy 02/10/25 at 0621, 1st Line. Give IV if patient is unable to take orally. If inadequate response within 60 minutes, proceed to next-line agent or contact provider if no further options ordered. Group 5: potassium chloride CR (Klor-Con M10) ER tablet 40 mEqJump to med 40 mEq, Oral, PRN, Per Potassium Replacement Protocol, Starting on 02/12/25 at 0615, May give alternative linked oral order (ordered as effervescent, packet, or liquid solution) if patient unable to tolerate tablet. K Lab Replacement Action 3.1 to 3.5 40 mEq ORAL x 1 Under 3.1 Refer to IV replacement protocol Recheck K level in AM. Protocol not for use in patients with CrCl less than 30 mL/min. Do not crush or chew. Or potassium chloride (Klor-Con) packet 40 mEqJump to med 40 mEq, Oral, PRN, Per Potassium Replacement Protocol, Starting on 02/12/25 at 0615, Administer as alternative if patient unable to tolerate oral tablet. K Lab Replacement Action 3.1 to 3.5 40 mEq ORAL x 1 Under 3.1 Refer to IV replacement protocol Recheck K level in AM. Protocol not for use in patients with CrCl less than 30 mL/min. Dissolve each packet in 4 ounces of water = 5 mEq per 1 oz fluid. Or potassium chloride 40 mEq in sodium chloride 0.9 % 500 mL IVPBJump to med 40 mEq, IntraVENous, at 130 mL/hr, Administer over 4 Hours, PRN, Per Potassium Replacement Protocol, Starting on 02/12/25 at 0615, K Lab Replacement Action 2.7 to 3.0 40 mEq in 500 mL IVPB Under 2.7 CALL PROVIDER and administer 40 mEq in 500 mL IVPB Infuse at 10 mEq/hr. Repeat Potassium lab 1 hour after final administration. Protocol not for use in patients with CrCl less than 30 mL/min. FOR RECORDS PERTAINING TO PATIENTS WHO ARE OR HAVE BEEN ENROLLED IN A CHEMICAL DEPENDENCY/SUBSTANCEABUSE PROGRAM, SOME INFORMATION MAY BE OMITTED. This clinical summary was aggregated from multiple sources. Caution should be exercised in using it in the provision of clinical care. This summary normalizes information from multiple sources, and as a consequence, information in this document may materially change the coding, format and clinical context of patient data. In addition, data may be omitted in some cases. CLINICAL DECISIONS SHOULD BE BASED ON THE PRIMARY CLINICAL RECORDS. [email or web address] [email or web address], [facility]. provides no warranty or guarantee of the accuracy or completeness of information in this document.
--- NOTE | 2025-04-05 00:36 | RAD_ITS ---
PROCEDURE: CHEST 1 VIEW (PORTABLE) 04/05/2025 REASON FOR EXAM: CHF TECHNIQUE: Frontal view of the chest. COMPARISON: CT scan of the chest on 04/01/2025. FINDINGS: Moderate bilateral pleural effusions. Passive atelectatic airspace disease of the lower lobes. Moderate central pulmonary venous congestion. Moderate interstitial pulmonary congestion. AICD is in good position. Enlarged cardiac silhouette. Normal mediastinum and antonio. Normal visualized pulmonary arteries. Atheromatous plaques of the visualized aortic arch and descending thoracic aorta. Diffuse spondylosis of the visualized thoracic spine. Normal visualized ribs, clavicles. Degenerative joint disease. There is no demonstrated abnormality of the visualized soft tissue structures of the upper abdomen. RAD/Chest 1 View (Portable) IMPRESSION: Moderate bilateral pleural effusions. Passive atelectatic airspace disease of the lower lobes. Moderate central pulmonary venous congestion. Moderate interstitial pulmonary congestion. AICD is in good position. Enlarged cardiac silhouette. [facility]
[2025-04-05 00:52] LABS: Hematocrit 46.9 % (40-54); Hemoglobin 16.2 g/dL (13.0-16.5); Immature Granulocytes Count 0.030 X10^3/uL (0.0-0.0); Mean Corp Hgb Conc 34.5 g/dL (32-36); Mean Corpuscular Volume 85.9 fL (80-94); Mean Platelet Vol. 11.2 fl (6.2-12.0); NRBC Flagged by Analyzer 0 % (0-5); POSITIVE MORPHOLOGY YES; Platelet Count 194 K/mm3 (150-450); RBC Distribution Width CV 20.6 % (11.6-14.6); RBC Distribution Width SD 60.8 fl (35.1-43.9); Red Blood Count 5.46 M/mm3 (4.6-6.2); White Blood Count 6.0 K/mm3 (4.4-11.0)
[2025-04-05 00:54] LABS: Differential Indicated SCAN CRITERIA MET
[2025-04-05 01:15] LABS: Magnesium 2.0 mg/dL (1.5-2.2)
[2025-04-05 01:29] LABS: Anion Gap 18 (5-15); BUN 36 mg/dL (4-19); BUN/Creat Ratio 15.0 RATIO (10-20); CPK Total, Creatine Kinase 449 U/L (24-195); Calcium,Total 9.4 mg/dL (7.6-11.0); Carbon Dioxide 19.6 mmol/L (21.0-32.0); Chloride 103 mmol/L (98-108); Estimated Creatinine Clearance 23.30 ml/min (50-250); Glucose 75 mg/dL (70-99); Potassium 3.7 mmol/L (3.3-5.1); Pro- Brain NATRIURETIC PEPTIDE > 70000 pg/mL (<=1800)
[2025-04-05 01:53] LABS: Anisocytosis 1+; Differential Comment SCANNED
--- NOTE | 2025-04-05 02:29 | HP.PCM_ITS ---
HPI - General General Date of Admission: 04/05/25 Date of Service: 04/05/25 Chief Complaint: Fall/generalized weakness HPI Narrative MEGAN SANDHU, is a 84 M who presents to the emergency room by squad after falling at home and remaining on the ground for more than 4 hours. Patient has a significant past medical history of congestive heart failure, insulin- dependent diabetes type 2, hypothyroidism and hypertension and lives at home alone. After using the restroom at home at approximately 2:00 this afternoon the patient remained in the restroom until approximately 6 PM but was unable to get up on his own and use the rollator to slide down to the floor shower area where he remained until help arrived. He states he did not strike his head or lose consciousness. He laid there until he was found and EMS was able to help him up after approximately 5 more hours. He denied any chest pain, shortness of breath, fevers or chills but due to concern for generalized weakness and inability to care for himself adequately there was concern as well for rhabdomyolysis he was brought in for further evaluation. Laboratory studies reveal white blood cell count of 6.0, hemoglobin 16.2, hematocrit 46.9, platelets 194, sodium 141, potassium 3.7, chloride 103, bicarb 19.6, BUN 36, creatinine 2.38, creatinine kinase 449, BN TP 70,000, TSH 13.7, chest x-ray shows moderate pleural effusions and moderate vascular congestion with an enlarged cardiac silhouette. Patient is well-known to me as he has been my patient in the outpatient setting for many years and we did discuss his CODE STATUS at this visit and he wishes to remain full code at present time. He will be admitted for generalized weakness, CHF and likely will need placement in rehab facility for strength and rehab. COUNTS INCLUDE 234 BEDS AT THE [facility] Medical History (Updated 04/05/25 @ 02:[address] Joseph Durand MD) Chronic pain of toe of left foot Displaced fracture of proximal phalanx of left lesser toe(s), initial encounter for closed fracture Diabetes MIAU (minor aphthous ulceration) Hiatal hernia CKD (chronic kidney disease), stage IV Pulmonary embolism HFrEF (heart failure with reduced ejection fraction) Blood transfusion during current hospitalisation Anticoagulant-induced bleeding GI bleed Benign positional vertigo Home Medications ?Medication ?Instructions ?Recorded ?Last Taken ?Type levothyroxine 75 mcg tablet 75 mcg PO DAILY thyroid 12 /09/21 Unknown History mecobalamin (vitamin B12) 1,000 1,000 mcg PO DAILY ane erica 06/28/21 Unknown History mcg chewable tablet (B12 Active) metoprolol succinate 100 mg 100 mg PO DAILY heart 04/10 Unknown History tablet,extended release 24 hr mnbunwpbsfkl-fun-wwqci acid-vit 1 tab PO DAILY not on pcp med list 06/28/21 Unknown History K-lycop 400 mcg-20 mcg-370 mcg tablet (Men's 50 Plus Multivitamin) tamsulosin 0.4 mg capsule 0.4 mg PO DAILY per md offic e list 06/28/21 Unknown History ferrous sulfate 325 mg (65 mg 325 mg PO DAILY #30 tabs 07/01/21 Unknown Rx iron) tablet pantoprazole 40 mg tablet,delayed 40 mg PO BID #120 ta bs 09/21/21 Unknown Rx release sucralfate 100 mg/mL oral 10 ml PO BID md office #1,00 0 mL 09/21/21 Unknown Rx suspension colestipol 1 gram tablet 0.5 g (1/2 x 1 gram) PO .brad ry 11/19/21 Unknown Rx other day 30 days #30 tabs gabapentin 400 mg capsule 400 mg PO TID per md office list 11/27/23 Unknown History glimepiride 1 mg tablet 1 mg PO DAILY per pcp med [facility] 11/27/23 Unknown History rosuvastatin 20 mg tablet 20 mg PO DAILY per pcp 11/26 Unknown History sacubitril 24 mg-valsartan 26 mg 1 tab PO BID per pcp med list 11/27/23 Unknown History tablet (Entresto) Held on 12/02/23. Instructions: Hold for at least 1 week. GABI on CKD. sertraline 50 mg tablet 50 mg PO DAILY per md office 11/27/23 Unknown History sildenafil 100 mg tablet PO per pcp med list 11/27/23 Unknown History sucralfate 1 gram tablet (Carafate) 1 g PO BID per MD office list 11/27/23 Unknown History acetaminophen 325 mg tablet 650 mg (2 x 325 mg) PO Q6H PRN PRN 12/02/23 Unknown Rx Pain 1-10 Or Fever >100.7 #0 tabs doxycycline monohydrate 100 mg 100 mg PO BID 5 days #1 0 caps 12/02/23 Unknown Rx capsule insulin lispro 100 unit/mL See Protocol subcut TIDAC # 0 mL 12/02/23 Unknown Rx subcutaneous pen (Humalog KwikPen (U-100) Insulin) miconazole nitrate 2 % topical 1 applic topical BID #0 grams 12/02/23 Unknown Rx cream oxycodone 5 mg tablet 2.5 - 5 mg (0.5 - 1 x 5 mg) PO Q4H 12/02/23 Unknown Rx PRN PRN Pain Score 4-10 3 days #7 tabs spironolactone 25 mg tablet 25 mg PO DAILY not on pcp list 30 12/02/23 Unknown Rx days #0 tabs torsemide 20 mg tablet 20 mg PO BID per md of 30 da ys #0 12/02/23 Unknown Rx tabs doxycycline hyclate 100 mg tablet 100 mg PO BID Unknown History Allergy/AdvReac Type Severity Reaction Status Date / Time No Known Allergies Allergy Verified 04/05/25 00:00 Family History Other Cancer Hypertension Surgical History History of permanent cardiac pacemaker placement Social History household members: spouse Smoking Status: Never smoker alcohol intake: never substance use type: does not use ROS Constitutional Constitutional: Reports weakness; Denies chills or fever(s) Eyes Eyes: Denies blurry vision ENT HEENT: Denies abnormal hearing Cardiovascular Cardiovascular: Denies chest pain Respiratory/Chest Respiratory/Chest: Reports shortness of breath with exertion; Denies cough Gastrointestinal Gastrointestinal: Denies abdominal pain Genitourinary Genitourinary: Denies dysuria Musculoskeletal Musculoskeletal: Denies back pain Integumentary Integumentary: Reports wounds; Denies dry skin Neurologic Neurologic: Reports weakness Psychiatric Psychiatric: Denies anxiety Vital Signs Vital Signs Vital Signs: 04/04/25 23:54 04/05/25 00:04 04/05/25 00:04 Temperature 97.9 F Temperature Source Oral Pulse Rate 62 61 Respiratory Rate 18 18 Respiratory Effort Normal Non-Labored Respiratory Depth Normal Respiratory Pattern Normal Blood Pressure 114/67 104/72 Blood Pressure Mean 82 82 Pulse Ox 95 92 Oxygen Delivery Method Room Air Room Air Room Air 04/05/25 01:49 Temperature 97.9 F Temperature Source Pulse Rate 62 Respiratory Rate 19 H Respiratory Effort Respiratory Depth Respiratory Pattern Blood Pressure 113/71 Blood Pressure Mean 85 Pulse Ox 97 Oxygen Delivery Method Weight Weight: 189 lb 2.506 oz Body Mass Index (BMI) 29.7 Physical Exam Const alert, oriented x3 and no apparent distress General Appearance: cooperative and well developed HEENT normocephalic and head/scalp atraumatic Eyes PERRL and EOMs intact bilaterally Neck no lymphadenopathy Lymph Lymphatic: no lymphadenopathy noted Resp normal respiratory effort, normal air movement and clear to auscultation bilaterally Cardio regular rate, regular rhythm, S1 normal heart sound and S2 normal heart sound GI normal to inspection, nondistended, normoactive bowel sounds Extremity normal capillary refill Skin Wound Narrative: [place] present Neuro no focal motor deficits and no sensory deficits noted Motor Exam: general weakness Psych thought process normal, cooperative and affect normal Results Lab / Micro Data 04/05/25 00:25 04/05/25 00:25 Labs: Laboratory Results - last 24 hr 04/05/25 00:25: WBC 6.0, RBC 5.46, Hgb 16.2, Hct 46.9, MCV 85.9, MCH 29.7, MCHC 34.5, RDW Std Deviation 60.8 H, RDW Coeff of Anuradha 20.6 H, Plt Count 194, MPV 11.2, Immature Gran % (Auto) 0.500, Neut % (Auto) 70.4 H, Lymph % (Auto) 14.4 L, [place] % (Auto) 11.2 H, Eos % (Auto) 2.2, Baso % (Auto) 1.3 H, Absolute Neuts (auto) 4.2, Absolute Lymphs (auto) 0.86, Nucleated RBC % 0, Differential Comment SCANNED, Plt Morphology Comment LARGE, Anisocytosis 1+, Ovalocytes RARE, Sodium 141, Potassium 3.7, Chloride 103, Carbon Dioxide 19.6 L, Anion Gap 18 H, BUN 36 H, Creatinine 2.38 H, Estim Creat Clear Calc 23.30 L, Est GFR (MDRD) Non-Af 26 L , BUN/Creatinine Ratio 15.0, Glucose 75, Calcium 9.4, Magnesium 2.0, Total Creatine Kinase 449 H, [place] B[place] II > [address]95 H, TSH 13.700 H Imaging Radiology Impression Chest X-Ray 04/05/25 00:36 IMPRESSION: Moderate bilateral pleural effusions. Passive atelectatic airspace disease of the lower lobes. Moderate central pulmonary venous congestion. Moderate interstitial pulmonary congestion. AICD is in good position. Enlarged cardiac silhouette. Reading Location: [place] [id number] Assessment & Plan Assessment/Plan (1) Fall: (2) Rhabdomyolysis: (3) Generalized weakness: (4) Congestive heart failure: (5) Diabetes: PLAN: Plan 1 generalized weakness with gentle fall at home?admit patient to progressive care unit, consult physical therapy for evaluation and treatment, consult case management for discharge planning to possible rehab facility post discharge from hospital setting to help with strength and rehabilitation. 2. Congestive heart failure?monitor oxygen and maintain oxygen saturation greater than 90%, continue routine home medications to manage congestive heart failure will add echocardiogram if 1 has not been done in the calendar year 3. Diabetes?continue routine insulin therapy, get CBC BMP, A1c and FLP in a.m. 4. Abnormal TSH?patient is in the acute care setting will follow-up as outpatient in my office and discuss and retest and decide if necessary to treat with Synthroid 5. DVT prophylaxis?SCDs 6. Chronic kidney disease encourage fluids as tolerated 7. CODE STATUS?full code verified Charges/Coding Visit Charges Inpatient E&M: 65499 Init Hosp L2
--- OUTSIDE RECORDS SUMMARY | 2025-04-05 03:33 | XMS RPT_ITS | CCD ---
Author Organization [facility] CliniSyil Care Team Providers Care Engine Research Engineer Name Role Phone Rigoberto Durand Primary Care Provider [phone] Rigoberto Durand Primary Care Provider Dr. Rigoberto Durand Referring Provider Dr. Saud Merida Attending Provider [phone] Enrico Davenport Emergency Provider Dr. Mauro Gusman Admit Provider Dr. Mauro Gusman Attending Provider Dr. Mauro Gusman Other Provider Dr. Carlos Barrientos Other Provider Dr. Mauro Gusman Referring Provider Dr. Carlos Barrientos Attending Provider Dr. Saud Merida Other Provider Dr. Les Chance Other Provider Dr. Les Chance Attending Provider Dr. Saud Merida Referring Provider [phone] Rigoberto Durand Primary Care Provider Dr. Rigoberto Durand Referring Provider Dr. Saud Merida Attending Provider Rigoberto Durand MD Primary Care Provider Dr. Rigoberto Durand Primary Care Provider Dr. Rigoberto Durand Referring Provider Dr. Saud Merida Attending Provider Dr. Raphael Quispe Attending Provider [phone] [place], [place] Primary Care Provider Rigoberto Durand MD Primary Care Provider [place] Roth Primary Care Provider Dr. Rigoberto Durand MD Primary Care Provider [...] Rigoberto Durand MD Primary Care Provider [phone] Dr. Harvinder George DO Attending Provider [phone] [...] Propensity to adverse reactions to substance 10-24-2015 [facility] [place] (20 sources) Other Propensity to adverse reactions 10-24-2015 [facility] (20 sources) atorvastatin Drug Allergy 09-12-2015 [facility] (20 sources) latanoprost Drug Allergy 05-29-2015 [facility] (20 sources) Lovastatin Propensity to adverse reactions 11-25-2012 [facility] [email or web address] Medications Current Medications Medication Drug Class(es) Dates [...] Start: 09-26-2020 take 1 capsule by mo okh once daily Coenzyme Q10 (COQ-10) 30 MG [...] PO) Take by mouth daily 0 Active Vhbpruop-Drc-Ywtaj-Vit K-Lycop (Men's 50 Plus Multivitamin) 400-20-370 mcg Tablet (12 sources) Start: 06-28-2021 take 50-400 tablets by mouth once daily Apydufpa-Rko-Qlkuo-Vit K-Lycop (Men's 50 Plus Multivitamin) 400-20-370 mcg Tablet Active 1 TABLET PO DAILY June 28, 2021 2:13pm Start: 06-28-2021 take 50-400 tablets by mouth once daily Cidosebh-Rxd-Cufov-Vit K-Lycop (Men's 50 Plus Multivitamin) 400-20-370 mcg Tablet Active 1 {tbl} PO DAILY June 28, 2021 1:00am not on pcp med list Start: 06-28-2021 take 50-400 tablets by mouth once daily Ynrxcmdb-Wmd-Fmqaa-Vit K-Lycop (Men's 50 Plus Multivitamin) 400-20-370 mcg Tablet Active 1 {tbl} PO DAILY June 28, 2021 1:00am Start: 06-28-2021 take 50-400 tablets by mouth once daily Cnncmmhw-Kpp-Nhwbh-Vit K-Lycop (Men's 50 Plus Multivitamin) 400-20-370 mcg Tablet Active 1 TABLET PO DAILY June 28, 2021 12:00am Start: 06-28-2021 take 50-400 tablets by mouth once daily Gslhadya-Ema-Pswjs-Vit K-Lycop (Men's 50 Plus Multivitamin) 400-20-370 mcg [...] HFrEF (heart failure with reduced ejection fraction) ([facility]) Take 1 tablet by mouth in the [...] 0900 Start: 11-27-2023 take 1 capsule by [facility] three times daily Gabapentin 400 mg capsule [...] End: 02-01-2025 0.5 ml heparin sodium, porcine 14065 unt/ml prefilled syringe (2 sources) Unfractionated Heparin, [...] Acute and unspecified renal failure (16 sources) Axidb-qj-tzgeqze renal failure; Translations: [Acute kidney failure, unspecified] [...] Auto (Unsp spec) [#/Vol] 0.92 10*3/uL 0.83-4.51 [facility] Absolute neutrophil countOrd ered By: Dax Romero on 04-01-2025 Neutrophils (Bld) [#/Vol] 3.4 10*3/uL 2.0-7.7 [facility] Activated partial thrombopla stin time (aPTT) in platelet poor plasma by coagulation aOrdered By: Dax Romero on 04-01-2025 aPTT Coag (PPP) [Time] 47.0 s High 24.1-36.2 [facility] Anion gap in Serum or Plasma Ordered By: Dax Romero on 04-01-2025 Anion gap [Moles/Vol] 19 mmol/L High 5-15 [facility] Automated lymphocyte count a s percentage of total leukocytesOrdered By: Dax Romero on 04-01-2025 Lymphocytes/100 WBC Auto (Unsp spec) 18.1 % Low 19-41 [facility] BUN/creatinine ratioOrdered By: Daxwillam Romero on 04-01-2025 Urea nitrogen/Creatinine [Mass ratio] 17.4 mg/mg 05-09 [facility] Basic Metabolic Profile (BMP )on 04-01-2025 BUN/CRE 17.4 RATIO Normal 05-09 [facility] Comment on above: Performed By: #### L 500.2500, L500.3400, L100.0100 #### [facility] Laboratory [facility] [place] [address], [address] Calcium [Mass/Vol] 9.2 mg/dL Normal 7.6-11.0 [facility] Comment on above: Performed By: #### L 500.2500, L500.3400, L100.0100 #### [facility] [address] [place], [address] Chloride [Moles/Vol] 100 mmol/L Normal 98-108 [facility] Comment on above: Performed By: #### L 500.2500, L500.3400, L100.0100 #### [facility] [address] [place], [address] CO2 [Moles/Vol] 19.7 mmol/L Low 21.0-32.0 [facility] Comment on above: Performed By: #### L 500.2500, L500.3400, L100.0100 #### [facility] [address] [place], [address] Creatinine [Mass/Vol] 2.19 mg/dL High 0.70-1.20 [facility] Comment on above: Performed By: #### L 500.2500, L500.3400, L100.0100 #### [facility] [address] [place], [address] ECRCL 26.27 ml/min Low 50-250 [facility] Comment on above: Performed By: #### L 500.2500, L500.3400, L100.0100 #### [facility] [address] [place], [address] GAP 19 High 5-15 [facility] Comment on above: Performed By: #### L 500.2500, L500.3400, L100.0100 #### [facility] [address] [place], [address] GFR/1.73 sq M.predicted among non-blacks MDRD (S/P/Bld) [Vol rate/Area] 29 mL/min/{1.73_m2} Low >60 [facility] Comment on above: Result Comment: mL/m in/1.73m2 CKD-EPI Creatinine Equation (2020) Performed By: #### L 500.2500, L500.3400, L100.0100 #### [facility] [address] [place], [address] Glucose [Mass/Vol] 91 mg/dL Normal 70-99 [facility] Comment on above: Performed By: #### L 500.2500, L500.3400, L100.0100 #### [facility] [address] [place], [address] Potassium [Moles/Vol] 3.9 mmol/L Normal 3.3-5.1 [facility] Comment on above: Result Comment: Hemo lysis present, Results??could be affected. ?? Performed By: #### L 500.2500, L500.3400, L100.0100 #### [facility] [address] [place], [address] Sodium [Moles/Vol] 139 mmol/L Normal 133-145 [facility] Comment on above: Performed By: #### L 500.2500, L500.3400, L100.0100 #### [facility] [address] [place], [address] Urea nitrogen [Mass/Vol] 38 mg/dL High 4-19 [facility] Comment on above: Performed By: #### L 500.2500, L500.3400, L100.0100 #### [facility] [address] [place], [address] Basophil percentageOrdered B y: Dax Romero on 04-01-2025 Basophils/100 WBC (Bld) 2.0 % High 0-1 [facility] Bilirubin directOrdered By: Dax Romero on 04-01-2025 Bilirubin.direct [Mass/Vol] 1.42 mg/dL High 0.00-0.30 [facility] Comment on above: Hemolysis present, R esults could be affected. Bilirubin, totalOrdered By: Dax Romero on 04-01-2025 Bilirubin [Mass/Vol] 2.82 mg/dL High 0.00-1.30 [facility] Brain/Head without Contrasto n 04-01-2025 Brain/Head without Contrast [facility] Imaging Services [address] [place], [place] [address] Brain/Head without Contrast MR#: [id number] Acct: [id number] Name: MEGAN NASCIMENTO Rep #: [id number] : 1940 M 84 From: Kartik de la rosa MD PCP: Dr. Rigoberto Durand MD Status: REG ER Study: Brain/Head without Contrast Date of Exam: 03/21 09/14 Exam# [id number] Ordering Dr: Dax Romero DO PROCEDURE: BRAIN/HEAD [...] CHRONIC CHANGES. NO ACUTE FINDINGS. Reading Location: [id number] CC: Dr. Rigoberto Durand MD; Dr. Dax Romero DO Paint Dipper: Signed Normal [facility] CBC W/Diff, Automatedon 03-21 Anisocytosis Ql (Bld) 1+ Normal [facility] Comment on above: Performed By: #### L 500.2500, L500.3400, L100.0100 #### [facility] [address] [place], [address] PLT EST ADEQUATE Normal ADEQ [facility] Comment on above: Performed By: #### L 500.2500, L500.3400, L100.0100 #### [facility] [address] [place], [address] CT Chest, Abd, Pel w/Contras ton 04-01-2025 CT Chest, Abd, Pel w/Contrast [facility] Imaging Services [address] [facility] [address] CT Chest, Abd, Pel w/Contrast MR#: [id number] Acct: [id number] Name: MEGAN NASCIMENTO Rep #: [id number] : 1940 M 84 From: Kartik de la rosa MD PCP: Dr. Rigoberto Durand MD Status: [facility] ER Study: CT Chest, Abd, Pel w/Contrast Date of Exam: Exam# [id number] Ordering Dr: Dax Romero DO PROCEDURE: CT [...] of the liver. Sigmoid diverticulosis. Reading Location: [facility] CC: Dr. Rigoberto Durand MD; Dr. Dax Romero DO Paint Dipper: Signed Normal [facility] Carbon dioxide, total [Moles /volume] in Central venous bloodOrdered By: Dax Romero on 04-01-2025 CO2 [Moles/Vol] 19.7 mmol/L Low 21.0-32.0 [facility] Chloride assayOrdered By: Presley Romero on 04-01-2025 Chloride [Moles/Vol] 100 mmol/L 98-108 [facility] Emergency Department Summary on 04-01-2025 Emergency Department Summary [facility] Medical Records Department [address] [place] [address] Emergency Department Summary 04/01/25 MR#: [id number] Acct: [id number] Name: AZAMMEGAN VO Rep #: [id number] : 1940 84 From: Dax Romero DO [...] simply lost 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 He states that over the last month he has had approximately 4 falls and states that ever since he had been diagnosed with diverticulitis. He does live alone. [facility] Medical History Chronic pain of toe [...] Unk nown History tablet,extended release 24 hr typvkfdhdksk-slq-luj ic acid-vit 1 tab PO DAILY not [...] PRN P (more content not included)... Normal [facility] Eosinophil percentageOrdered By: Dax Romero on 04-01-2025 Eosinophils/100 WBC (Bld) 2.4 % 0-5 [facility] Erythrocyte distribution wid th ratioOrdered By: Dax Romero on 04-01-2025 Erythrocyte distribution width (RBC) [Ratio] 20.3 % High 11.6-14.6 [facility] Erythrocyte distribution wid th standard deviationOrdered By: Dax Romero on 04-01-2025 Erythrocyte distribution width (RBC) [Ratio] 61.8 fl High 35.1-43.9 [facility] Glomerular filtration rate ( GFR) estimation/1.73 sq m using serum, plasma, or whole bOrdered By: Dax Romero on 04-01-2025 GFR/1.73 sq M.predicted among non-blacks MDRD (S/P/Bld) [Vol rate/Area] 29 mL/min/{1.73_m2} Low >60 [facility] Comment on above: mL/min/1.73m2 CKD-EP I Creatinine Equation (2020) Hematocrit Auto (Bld) [Volum e fraction]Ordered By: Dax Romero on 04-01-2025 Hematocrit (Bld) [Volume fraction] 49.1 % 40-54 [facility] Hemoglobin measurementOrdere d By: Dax Romero on 04-01-2025 Hemoglobin (Bld) [Mass/Vol] 16.3 g/dL 13.0-16.5 [facility] Immature granulocytes/100 WB C Auto (Bld)Ordered By: aDx Romero on 04-01-2025 Immature granulocytes/100 WBC (Bld) 0.800 % 0.0-0.9 [facility] Comment on above: IG% - Immature Granu locytes (promyelocytes, myelocytes and metamyelocytes) > 1% indicates that a LEFT SHIFT is Present. International normalized rat io (INR) calculationOrdered By: Dax Romero on 04-01-2025 INR Coag (Bld) [Relative time] 1.6 {INR} [facility] Laboratory - Chemistry and C hemistry - challengeOrdered By: Dax Romero on 04-01-2025 AST [Catalytic activity/Vol] 40 U/L High <38 [facility] Comment on above: Hemolysis present, R esults could be affected. Laboratory - Hematology and Cell countsOrdered By: Dax Romero on 04-01-2025 Anisocytosis Ql (Bld) 1+ [facility] Liver Profileon 04-01-2025 Albumin [Mass/Vol] 3.8 g/dL Normal 3.4-4.8 [facility] Comment on above: Performed By: #### L 500.2500, L500.3400, L100.0100 #### [facility] [address] [place], [address] ALK PHOS 129 U/L Normal 40-129 [facility] Comment on above: Performed By: #### L 500.2500, L500.3400, L100.0100 #### [facility] [address] [place], [address] ALT [Catalytic activity/Vol] 12 U/L Normal <=46 [facility] Comment on above: Performed By: #### L 500.2500, L500.3400, L100.0100 #### [facility] [address] [place], [address] AST [Catalytic activity/Vol] 40 U/L High <=37 [facility] Comment on above: Result Comment: Hemo lysis present, Results??could be affected. ?? Performed By: #### L 500.2500, L500.3400, L100.0100 #### [facility] [address] [place], [address] Bilirubin [Mass/Vol] 2.82 mg/dL High 0.00-1.30 [facility] Comment on above: Performed By: #### L 500.2500, L500.3400, L100.0100 #### [facility] [address] [place], [address] Bilirubin.direct [Mass/Vol] 1.42 mg/dL High 0.00-0.30 [facility] Comment on above: Result Comment: Hemo lysis present, Results??could be affected. ?? Performed By: #### L 500.2500, L500.3400, L100.0100 #### [facility] [address] [place], [address] Globulin (S) [Mass/Vol] 3.0 g/dL Normal 2.2-4.2 [facility] Comment on above: Performed By: #### L 500.2500, L500.3400, L100.0100 #### [facility] [address] [place], [address] T PROT 6.9 g/dL Normal 5.9-8.4 [facility] Comment on above: Performed By: #### L 500.2500, L500.3400, L100.0100 #### [facility] [address] [place], [address] MCV (mean corpuscular volume ) determinationOrdered By: Dax Romero on 04-01-2025 MCV (RBC) [Entitic vol] 87.5 fL 80-94 [facility] Mean corpuscular hemoglobin (MCH) determinationOrdered By: Dax Romero on 04-01-2025 MCH (RBC) [Entitic mass] 29.1 pg 27.0-32.0 [facility] Mean corpuscular hemoglobin concentration (MCHC) determinationOrdered By: Dax Romero on 04-01-2025 MCHC (RBC) [Mass/Vol] 33.2 g/dL 32-36 [facility] Mean platelet volume determi nationOrdered By: Dax Romero on 04-01-2025 Platelet mean volume (Bld) [Entitic vol] 10.8 fL 6.2-12.0 [facility] Monocyte percentageOrdered B y: Dax Romero on 04-01-2025 Monocytes/100 WBC (Bld) 10.6 % High 0-10 [facility] Neutrophil percentageOrdered By: Dax Romero on 04-01-2025 Neutrophils/100 WBC (Bld) 66.1 % 47-70 [facility] Nucleated red blood cell per centageOrdered By: Dax Romero on 04-01-2025 Nucleated RBC/100 WBC (Bld) [Ratio] 0 % 0-5 [facility] Partial Thromboplast Timeon 04-01-2025 aPTT Coag (Bld) [Time] 47.0 s High 24.1-36.2 [facility] Comment on above: Performed By: #### L 300.3900, L300.4310 ####[facility] [address] [place], [address] Platelet countOrdered By: Presley Romero on 04-01-2025 Platelets (Bld) [#/Vol] 203 10*3/uL 150-450 [facility] Platelet estimateOrdered By: Dax Romero on 04-01-2025 Platelets LM Ql (Bld) ADEQUATE ADEQ [facility] Potassium measurement (mass/ volume)Ordered By: Dax Romero on 04-01-2025 Potassium (Unsp spec) [Mass/Vol] 3.9 mmol/L 3.3-5.1 [facility] Comment on above: Hemolysis present, R esults could be affected. Prothrombin Time w/INRon INR Coag (PPP) [Relative time] 1.6 {INR} Normal [facility] Comment on above: Performed By: #### L 300.3900, L300.4310 ####[facility] [address] [place], [address] PT Coag (PPP) [Time] 19.3 s High 11.7-14.9 [facility] Comment on above: Performed By: #### L 300.3900, L300.4310 ####[facility] [address] [place], [address] INR Normal [facility] Comment on above: Result Comment: JAZZMINE, SPOKE WITH MARK Performed By: #### L 300.3900 ####[facility] [address] [place], [address] PROTIME Normal 11.7-14.9 [facility] Comment on above: Result Comment: JAZZMINE, SPOKE WITH MARK Performed By: #### L 300.3900 ####[facility] [address] [place], [address] Prothrombin timeOrdered By: Dax Romero on 04-01-2025 PT Coag (PPP) [Time] 19.3 s High 11.7-14.9 [facility] RBC Auto (Bld) [#/Vol]Ordere d By: Dax Romero on 04-01-2025 RBC (Bld) [#/Vol] 5.61 10*6/uL 4.6-6.2 [facility] Serum creatinine measurement (mass/volume)Ordered By: Dax Romero on 04-01-2025 Creatinine [Mass/Vol] 2.19 mg/dL High 0.70-1.20 [facility] Serum globulin measurementOr dered By: Dax Romero on 04-01-2025 Globulin (S) [Mass/Vol] 3.0 g/dL 2.2-4.2 [facility] Serum glucose measurement (m ass/volume)Ordered By: Dax Romero on 04-01-2025 Glucose [Mass/Vol] 91 mg/dL 70-99 [facility] Serum or plasma alanine clay otransferase (ALT) measurementOrdered By: Dax Romero on 04-01-2025 ALT [Catalytic activity/Vol] 12 U/L <47 [facility] Serum or plasma albumin geena urement (mass/volume)Ordered By: Dax Romero on 04-01-2025 Albumin [Mass/Vol] 3.8 g/dL 3.4-4.8 [facility] Serum or plasma alkaline camila sphatase measurementOrdered By: Dax Romero on 04-01-2025 ALP [Catalytic activity/Vol] 129 U/L 40-129 [facility] Serum or plasma calcium geena urement (mass/volume)Ordered By: Dax Romero on 04-01-2025 Calcium [Mass/Vol] 9.2 mg/dL 7.6-11.0 [facility] Serum or plasma urea nitroge n measurement (mass/volume)Ordered By: Dax Romero on 04-01-2025 Urea nitrogen [Mass/Vol] 38 mg/dL High 4-19 [facility] Sodium levelOrdered By: Darrin Romero on 04-01-2025 Sodium [Moles/Vol] 139 mmol/L 133-145 [facility] Spine Cervical without Contr ason 04-01-2025 Spine Cervical without Contras [facility] Imaging Services [address] [place], [place] [address] Spine Cervical without Contras MR#: [id number] Acct: [id number] Name: MEGAN NASCIMENTO Rep #: [id number] : 1940 M 84 From: Kartik de la rosa MD PCP: Dr. Rigoberto Durand MD Status: REG ER Study: Spine Cervical without Contras Date of Exam: 0 04/01/25 Exam# [id number] Ordering Dr: Dax Romero DO PROCEDURE: SPINE [...] stenosis and facet joint osteoarthritis. Reading Location: [facility] CC: Dr. Rigoberto Durand MD; Dr. Dax Romero DO Paint Dipper: Signed Normal [facility] Total proteinOrdered By: Aye Romero on 04-01-2025 Protein [Mass/Vol] 6.9 g/dL 5.9-8.4 [facility] White blood cell (WBC) count Ordered By: Dax Romero on 04-01-2025 WBC (Bld) [#/Vol] 5.1 10*3/uL 4.4-11.0 [facility] Progress Noteon 03-16-2025 Progress Note Chart reviewed. Attempted to contact patient for transitional follow up. No answer. Unable to leave a , as box is full. Patient's 30 day transitional period ends tomorrow. Will plan for transitional program closure tomorrow (03/17). [facility] 36on 03-15-2025 36 Noted. In reviewing pts dispense report. He is filling medication through [facility] retail pharmacy. With current dosing of 20 mg BID. [facility] 36 It is per pt's preference if Demadex taken a total of 40 mg once daily, vs 20 mg twice daily. [facility] 36on 03-11-2025 36 Name of caller: Yanna Contact phone number: [phone] Relationship to Patient: [facility] Provider: Petra Renteria Practice: [facility] Chief Complaint/Reason for Call: Delroy is calling [...] should have some medication left. Please advise [facility] 36on 03-04-2025 36 ----- Message from [...] to call Megan. His phone went to [employer]. The Mailbox is full. Will try again [...] an appointment with his PCP on 03/10/25. [facility] Progress Noteon 03-04-2025 Progress Note Pt has continued renal insuffiencey in the setting of severe LV dysfunction. I would recommend he continue his present diuretics, including Demadex 40 mg daily. Please ask he have a repeat BMP in 1 week to document stability. Normal [facility] Office Visiton 03-03-2025 Follow-up visit [id number] Megan Nascimento 1940 M Date Provider Department Center 03/03/2025 29344-AFEHTUPETRA RENTERIA [facility] VARUN [facility] CV Susan Family History Problem Relation Age of Onset High Blood Pressure Father High Blood Pressure Mother Family Status - Relation Status Age at Father Mother Level of Service:29917 [place] OFFICE/OUTPATIENT ESTABLISHED MOD MDM 30 MIN Reason for Visit and Comments: Hospital Follow-up [832] Normal [facility] Progress Noteon 03-03-2025 Progress Note [facility] Cardiology Office Note DATE of SERVICE: 03/03/25 [...] defibrillator placement. He was recently admitted to [facility] 01/28/2025-02/01/2025 and treated for heart failure exacerbation, [...] is 1 (more content not included)... 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 Yes (Will route to CHWJamila, to complete SDOH and follow up with patient next week.) Spoke with patient. Re-introduced myself and my role on [facility]'s transitional team. He reports that the [...] was thrown off this morning since the [facility] nurse was out. He denies any [...] legs looking? Any s/s of cellulitis?). Normal [facility] Progress Noteon 02-24-2025 Progress Note Chart reviewed. Noted that patient is now scheduled to see cardiology (Everton Renteria CNP) on 03/03. Attempted to contact patient for transitional follow up. No answer. Left VM requesting a return call back. Future transitional outreach scheduled. [facility] [phone] [phone] Patient Choice Patient Name: MEGAN NASCIMENTO Date of : 1940 [facility] Progress Noteon 02-17-2025 Progress Note 02/17/25 1332 Transitions Post-Discharge Call - Initial Reviewed patients discharge instructions? Yes (AVS from hospital discharge reviewed.) Was patient able to bead picker new prescriptions? Yes Medication reconciliation complete? Partially [...] HHC ordered? Yes If yes, which agency? [facility] [place] Was [facility] initiated if ordered? 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 To Be Determined At Next Outreach [...] that his PCP was listed incorrectly in [employer]. PCP updated in [employer]. Patient reports that he sees Dr. Bourne. [...] scheduled (Did he see/schedule with cardiology/PCP?). Normal [facility] BASIC METABOLIC PANELon 07-2 Anion gap [Moles/Vol] 12 mmol/L Normal 3-13 [facility] Comment on above: Performed By: #### L AB15 ####[employer] Revenue Officer: DIGNA MORALES ([phone])[facility] [facility] ([facility])[address] Calcium [Mass/Vol] 8.8 mg/dL Normal 8.8-10.0 [facility] Comment on above: Performed By: #### L AB15 ####U.S. Revenue Officer: DIGNA MORALES ([id number])[facility] ([facility])[address] Chloride [Moles/Vol] 107 mmol/L Normal 98-107 [facility] Comment on above: Performed By: #### L AB15 ####U.S. Revenue Officer: DIGNA MORALES ([id number])[facility] (SB[facility])[address] [place] [address] [place] CO2 [Moles/Vol] 22 mmol/L Low 23-31 [facility] Comment on above: Performed By: #### L AB15 ####U.S. Revenue Officer: DIGNA MORALES ([id number])[facility] (SBHLAB)[address] Creatinine [Mass/Vol] 1.94 mg/dL High 0.72-1.25 [facility] Comment on above: Performed By: #### L AB15 ####U.S. Revenue Officer: DIGNA MORALES ([id number])[facility] [place] [address] [place] GLOMERULAR FILTRATION RATE ML/MIN/1.73 SQ M.PREDICTED 33.3 mL/min/1.73m*2 Low >60.0 [facility] Comment on above: Result Comment: Calc ulation based on the Chronic Kidney Disease Epidemiology Collaboration (CKD-EPI) equation refit without adjustment for race Performed By: #### L AB15 ####U.S. Revenue Officer: DIGNA MORALES ([id number])[facility])[address] Glucose [Mass/Vol] 101 mg/dL Normal 82-115 [facility] Comment on above: Performed By: #### L AB15 ####U.S. Revenue Officer: DIGNA MORALES ([id number])[facility] [place] [address] [place] Potassium [Moles/Vol] 3.5 mmol/L Normal 3.5-5.1 [facility] Comment on above: Result Comment: [facility] potassium values may be up to 0.5 mmol/L lower than serum values. Performed By: #### L AB15 ####U.S. Revenue Officer: DIGNA MORALES ([id number])[facility])[address] Sodium [Moles/Vol] 141 mmol/L Normal 136-145 [facility] Comment on above: Performed By: #### L AB15 ####U.S. Revenue Officer: DIGNA MORALES ([id number])[facility] ([facility])[address] Urea nitrogen [Mass/Vol] 24 mg/dL High 9-23 [facility] Comment on above: Performed By: #### L AB15 ####U.S. Revenue Officer: DIGNA MORALES ([id number])[facility] ([facility])[address] Basic metabolic 1998 panelon 02-15-2025 Anion gap [Moles/Vol] 12 mmol/L 3 - 13 mmol/L [facility] Calcium [Mass/Vol] 8.8 mg/dL 8.8 - 10. 0 mg/dL [facility] Chloride [Moles/Vol] 107 mmol/L 98 - 10 7 mmol/L [facility] CO2 [Moles/Vol] 22 mmol/L Low 23 - 31 mmol/L [facility] Creatinine [Mass/Vol] 1.94 mg/dL High 0.72 - 1.25 mg/dL [facility] GFR/1.73 sq M.predicted (S/P/Bld) [Vol rate/Area] 33.3 mL/min Low - PINF [facility] Comment on above: Calculation based on the Chronic Kidney Disease Epidemiology Collaboration (CKD-EPI) equation refit without adjustment for race Glucose [Mass/Vol] 101 mg/dL 82 - 115 mg/dL [facility] Interpretation and review of laboratory results Abnormal [facility] Potassium [Moles/Vol] 3.5 mmol/L 3.5 - 5.1 mmol/L [facility] Comment on above: Plasma potassium erika ues may be up to 0.5 mmol/L lower than serum values. Sodium [Moles/Vol] 141 mmol/L 136 - 145 mmol/L [facility] Urea nitrogen [Mass/Vol] 24 mg/dL High 9 - 23 mg/d L [facility] CBC (HEMOGRAM)on 02-15-2025 Erythrocyte distribution width (RBC) [Ratio] 19.1 % High 11.5-15.0 [facility] Comment on above: Performed By: #### L [id number] ####U.S. Revenue Officer: DIGNA MORALES ([id number])[facility] ([facility])[address] Hematocrit (Bld) [Volume fraction] 45.9 % Normal 40.0-52.0 [facility] Comment on above: Performed By: #### L [id number] ####U.S. Revenue Officer: DIGNA MORALES ([id number])[facility] PILALIAaron (SBHLAB)[address] Hemoglobin (Bld) [Mass/Vol] 15.2 g/dL Normal 13.0-18.0 [facility] Comment on above: Performed By: #### L [id number] ####U.S. Revenue Officer: DIGNA MORALES ([id number])[facility]ITAL[facility] DAVISKENDALL (SBHLAB)[address] MCH (RBC) [Entitic mass] 28.7 pg Normal 26.0-34.0 [facility] Comment on above: Performed By: #### L AB294 ####U.S. Revenue Officer: DIGNA MORALES ([id number])[facility]ITALCarlos PILLAIAaron (SBHLAB)[address] MCHC 33.1 % Normal 30.5-36.0 [facility] Comment on above: Performed By: #### L AB294 ####U.S. Revenue Officer: DIGNA MORALES ([id number])T[facility]U DAVISKENDALL (SBHLAB)[address] MCV (RBC) [Entitic vol] 86.8 fL Normal 77.0-99.0 [facility] Comment on above: Performed By: #### L [id number] ####U.S. Revenue Officer: DIGNA MORALES ([id number])[facility]ITALCarl[facility] DAVISKENDALL (SBHLAB)[address] Platelet mean volume (Bld) [Entitic vol] 11.0 fL Normal 9.0-12.7 [facility] Comment on above: Performed By: #### L [id number] ####U.S. Revenue Officer: DIGNA MORALES ([id number])[facility]ITALA [place] (SBHLAB)[address] Platelets (Bld) [#/Vol] 205 10*3/uL Normal 140-440 [facility] Comment on above: Performed By: #### L [id number] ####U.S. Revenue Officer: DIGNA MORALES ([id number])[facility]ITALCarl[facility] ROMEO (SB[facility]AB)[address] RBC (Bld) [#/Vol] 5.29 10*6/uL Normal 4.40-5.90 [facility] Comment on above: Performed By: #### L AB294 ####U.S. Revenue Officer: DIGNA MORALES ([id number])[facility]ITAL[facility] ROMEO ([facility])[address] [place] [address] WBC (Bld) [#/Vol] 4.0 10*3/uL Normal 3.6-10.7 [facility] Comment on above: Performed By: #### L [id number] ####U.S. Revenue Officer: DIGNA MORALES ([id number])[facility]ITAL[facility] ROMEO ([facility])[address] [place] [address] CBC panel Auto (Bld)on 02-15 Erythrocyte distribution width (RBC) [Ratio] 19.1 % High 11.5 - 15.0 % [facility] Hematocrit (Bld) [Volume fraction] 45.9 % 40.0 - 52.0 % [facility] Hemoglobin (Bld) [Mass/Vol] 15.2 g/dL 13.0 - 18.0 g/dL [facility] Interpretation and review of laboratory results Abnormal [facility] MCH (RBC) [Entitic mass] 28.7 pg 26. 0 - 34.0 pg [facility] MCHC (RBC) [Mass/Vol] 33.1 % 30.5 - 36.0 % [facility] MCV (RBC) [Entitic vol] 86.8 fL 77.0 - 99.0 fL [facility] Platelet mean volume (Bld) [Entitic vol] 11 fL 9.0 - 12.7 fL [facility] Platelets (Bld) [#/Vol] 205 10*3/uL 140 - 440 10*3/uL [facility] RBC (Bld) [#/Vol] 5.29 10*6/uL 4.40 - 5.9 0 10*6/uL [facility] WBC (Bld) [#/Vol] 4 10*3/uL 3.6 - 10.7 10*3/uL [facility] Laboratory - Chemistry and C hemistry - challengeon 02-15-2025 Glucose [Mass/Vol] 118 mg/dL High 70 - 100 mg/dL [facility] Glucose [Mass/Vol] 89 mg/dL 70 - 100 mg/dL [facility] Glucose [Mass/Vol] 69 mg/dL Low 70 - 100 mg/dL [facility] No Panel Informationon 02-15 Interpretation and review of laboratory results Abnormal [facility] Performed by: [facility] Romeo [address] [place] [address] CLIA ID: [id number] [facility] Interpretation and review of laboratory results Normal [facility] Performed by: [facility] Romeo [address] [place] [address] CLIA ID: [id number] [facility] Interpretation and review of laboratory results Abnormal [facility] Performed by: [facility] Romeo, [address] [place] [address] CLIA ID: [id number] [facility] Nursing Noteon 02-15-2025 Nursing Note Pt ok to discharge home per , juan alberto wnrussell. Pt understood discharge instructions. Son to transport pt home. IV removed prior to pt leaving hospital. Pt received meds to bed. [facility] [id number] 02-14-2025 [id number] SRIRAM met with pt at [facility] to complete the 30 day Readmission questionnaire. SW asked for pt's consent and pt agreed. Pt was cooperative and answered all questions. SW will email questionnaire at the end of the week to [email or web address] [facility] BASIC METABOLIC PANELon 01-19 Anion gap [Moles/Vol] 13 mmol/L Normal 3-13 [facility] Comment on above: Performed By: #### L AB15 ####U.S. Revenue Officer: DIGNA MORALES ([id number])[facility]ITALCarlos BARBHARSHN (SBHLAB)[address] Calcium [Mass/Vol] 8.9 mg/dL Normal 8.8-10.0 [facility] Comment on above: Performed By: #### L AB15 ####U.S. Revenue Officer: DIGNA MORALES ([id number])[facility]ITALA [place] (SBHLAB)[address] Chloride [Moles/Vol] 107 mmol/L Normal 98-107 [facility] Comment on above: Performed By: #### L AB15 ####U.S. Revenue Officer: DIGNA MORALES ([id number])[facility]ITALA [place] (SBHLAB)[address] CO2 [Moles/Vol] 21 mmol/L Low 23-31 [facility] Comment on above: Performed By: #### L AB15 ####U.S. Revenue Officer: DIGNA MORALES ([id number])[facility]ITALA [place] (SB[facility]AB)[address] Creatinine [Mass/Vol] 1.77 mg/dL High 0.72-1.25 [facility] Comment on above: Performed By: #### L AB15 ####U.S. Revenue Officer: DIGNA MORALES ([id number])[facility]ITALA BARBHARSHN (SBHLAB)[address] [place] [address] [place] GLOMERULAR FILTRATION RATE ML/MIN/1.73 SQ M.PREDICTED 37.2 mL/min/1.73m*2 Low >60.0 [facility] Comment on above: Result Comment: Calc ulation based on the Chronic Kidney Disease Epidemiology Collaboration (CKD-EPI) equation refit without adjustment for race Performed By: #### L AB15 ####U.S. Revenue Officer: DIGNA MORALES ([id number])[facility]ITALA [place] ([facility])[address] [place] [address] [place] Glucose [Mass/Vol] 96 mg/dL Normal 82-115 [facility] Comment on above: Performed By: #### L AB15 ####U.S. Revenue Officer: DIGNA TAPIACER ([id number])[facility]A [facility]N (SB[facility]AB)[address] Potassium [Moles/Vol] 3.5 mmol/L Normal 3.5-5.1 [facility] Comment on above: Result Comment: [facility] potassium values may be up to 0.5 mmol/L lower than serum values. Performed By: #### L AB15 ####U.S. Revenue Officer: DIGNA MORALES ([id number])[facility]ITALA [facility]PITALN (SBHLAB)[address] Sodium [Moles/Vol] 141 mmol/L Normal 136-145 [facility] Comment on above: Performed By: #### L AB15 ####U.S. Revenue Officer: DIGNA MORALES ([id number])[facility] (SB[facility])[address] [place] [address] Urea nitrogen [Mass/Vol] 22 mg/dL Normal 9-23 [facility] Comment on above: Performed By: #### L AB15 ####U.S. Revenue Officer: DIGNA MORALES ([id number])[facility] ([facility])[address] [place] [address] Basic metabolic 1998 panelon 02-14-2025 Anion gap [Moles/Vol] 13 mmol/L 3 - 13 mmol/L [facility] Calcium [Mass/Vol] 8.9 mg/dL 8.8 - 10. 0 mg/dL [facility] Chloride [Moles/Vol] 107 mmol/L 98 - 10 7 mmol/L [facility] CO2 [Moles/Vol] 21 mmol/L Low 23 - 31 mmol/L [facility] Creatinine [Mass/Vol] 1.77 mg/dL High 0.72 - 1.25 mg/dL [facility] GFR/1.73 sq M.predicted (S/P/Bld) [Vol rate/Area] 37.2 mL/min Low - PINF [facility] Comment on above: Calculation based on the Chronic Kidney Disease Epidemiology Collaboration (CKD-EPI) equation refit without adjustment for race Glucose [Mass/Vol] 96 mg/dL 82 - 115 mg/dL [facility] Interpretation and review of laboratory results Abnormal [facility] Potassium [Moles/Vol] 3.5 mmol/L 3.5 - 5.1 mmol/L [facility] Comment on above: Plasma potassium erika ues may be up to 0.5 mmol/L lower than serum values. Sodium [Moles/Vol] 141 mmol/L 136 - 145 mmol/L [facility] Urea nitrogen [Mass/Vol] 22 mg/dL 9 - 23 mg/d L [facility] CBC (HEMOGRAM)on 02-14-2025 Erythrocyte distribution width (RBC) [Ratio] 19.2 % High 11.5-15.0 [facility] Comment on above: Performed By: #### L [id number] ####U.S. Revenue Officer: DIGNA MORALES ([id number])[facility] ([facility])[address] [place] [address] Hematocrit (Bld) [Volume fraction] 46.2 % Normal 40.0-52.0 [facility] Comment on above: Performed By: #### L [id number] ####U.S. Revenue Officer: DIGNA MORALES ([id number])[facility] ([facility])[address] [place] [address] Hemoglobin (Bld) [Mass/Vol] 15.3 g/dL Normal 13.0-18.0 [facility] Comment on above: Performed By: #### L [id number] ####U.S. Revenue Officer: DIGNA MORALES ([id number])[facility] ([facility])[address] [place] [address] MCH (RBC) [Entitic mass] 28.5 pg Normal 26.0-34.0 [facility] Comment on above: Performed By: #### L [id number] ####U.S. Revenue Officer: DIGNA MORALES ([id number])[facility] ([facility])[address] [place] [address] MCHC 33.1 % Normal 30.5-36.0 [facility] Comment on above: Performed By: #### L [id number] ####U.S. Revenue Officer: DIGNA TAPIACER ([id number])[facility] [place] (SBHLAB)[address] MCV (RBC) [Entitic vol] 86.2 fL Normal 77.0-99.0 [facility] Comment on above: Performed By: #### L [id number] ####U.S. Revenue Officer: DIGNA CARMEN ([id number])[facility]ITALCarlos [facility]N (SB[facility]AB)[address] Platelet mean volume (Bld) [Entitic vol] 10.9 fL Normal 9.0-12.7 [facility] Comment on above: Performed By: #### L [id number] ####U.S. Revenue Officer: DIGNA ARANAILYA ([id number])[facility]PITALCarlos DAVISUNM HOSPITALN (SBHLAB)[address] Platelets (Bld) [#/Vol] 209 10*3/uL Normal 140-440 [facility] Comment on above: Performed By: #### L [id number] ####U.S. Revenue Officer: DIGNA ROJASREX ([id number])[facility] ([facility])[address] RBC (Bld) [#/Vol] 5.36 10*6/uL Normal 4.40-5.90 [facility] Comment on above: Performed By: #### L [id number] ####U.S. Revenue Officer: DIGNA MORALES ([id number])[facility]ITALCarl[facility]OSPITALN (SB[facility]AB)[address] WBC (Bld) [#/Vol] 4.5 10*3/uL Normal 3.6-10.7 [facility] Comment on above: Performed By: #### L [id number] ####U.S. Revenue Officer: DIGNA MORALES ([id number])[facility] ([facility])[address] CBC panel Auto (Bld)on 02-14 Erythrocyte distribution width (RBC) [Ratio] 19.2 % High 11.5 - 15.0 % [facility] Hematocrit (Bld) [Volume fraction] 46.2 % 40.0 - 52.0 % [facility] Hemoglobin (Bld) [Mass/Vol] 15.3 g/dL 13.0 - 18.0 g/dL [facility] Interpretation and review of laboratory results Abnormal [facility] MCH (RBC) [Entitic mass] 28.5 pg 26. 0 - 34.0 pg [facility] MCHC (RBC) [Mass/Vol] 33.1 % 30.5 - 36.0 % [facility] MCV (RBC) [Entitic vol] 86.2 fL 77.0 - 99.0 fL [facility] Platelet mean volume (Bld) [Entitic vol] 10.9 fL 9.0 - 12.7 fL [facility] Platelets (Bld) [#/Vol] 209 10*3/uL 140 - 440 10*3/uL [facility] RBC (Bld) [#/Vol] 5.36 10*6/uL 4.40 - 5.9 0 10*6/uL [facility] WBC (Bld) [#/Vol] 4.5 10*3/uL 3.6 - 10.7 10*3/uL [facility] Laboratory - Chemistry and C hemistry - challengeon 02-14-2025 Glucose [Mass/Vol] 103 mg/dL High 70 - 100 mg/dL [facility] Glucose [Mass/Vol] 85 mg/dL 70 - 100 mg/dL [facility] Glucose [Mass/Vol] 94 mg/dL 70 - 100 mg/dL [facility] Glucose [Mass/Vol] 83 mg/dL 70 - 100 mg/dL [facility] No Panel Informationon 02-14 Interpretation and review of laboratory results Abnormal [facility] Performed by: Jacques Lin [facility], [facility] [address] CLIA ID: [id number] [facility] Interpretation and review of laboratory results Normal [facility] Performed by: Jacques Lin [facility], [facility] [address] CLIA ID: [id number] [facility] Interpretation and review of laboratory results Normal [facility] Performed by: Jacques Lin [facility], [facility] [address] CLIA ID: [id number] [facility] Interpretation and review of laboratory results Normal [facility] Performed by: [facility] DavisHampton, [address] [address] CLIA ID: [id number] [facility] Nursing Noteon 02-14-2025 Nursing Note Wound Care consulted for Pressure Injury Prevention. Pt's Simon score= 18 on 02/14 Pt's pressure points assessed. Pt turned independently in the bed for posterior assessment. Pt's Heels, Buttocks/coccyx, Back, Elbows, Occiput and ears all intact. [place] and blanchable tissues noted to coccyx. Instructed [...] questions or concerns. Lavonne Grace RN Normal [facility] BASIC METABOLIC PANELon 01-19 Anion gap [Moles/Vol] 14 mmol/L High 3-13 [facility] Comment on above: Performed By: #### L AB15 ####U.S. Revenue Officer: DIGNA MORALES ([id number])[facility] (SB[facility])[address] Calcium [Mass/Vol] 8.8 mg/dL Normal 8.8-10.0 [facility] Comment on above: Performed By: #### L AB15 ####U.S. Revenue Officer: DIGNA MORALES ([id number])[facility] ([facility])[address] Chloride [Moles/Vol] 107 mmol/L Normal 98-107 [facility] Comment on above: Performed By: #### L AB15 ####U.S. Revenue Officer: DIGNA MORALES ([id number])[facility] [place] (SB[facility])[address] CO2 [Moles/Vol] 21 mmol/L Low 23-31 [facility] Comment on above: Performed By: #### L AB15 ####U.S. Revenue Officer: DIGNA MORALES ([id number])[facility] (SBHLAB)[address] Creatinine [Mass/Vol] 1.85 mg/dL High 0.72-1.25 [facility] Comment on above: Performed By: #### L AB15 ####U.S. Revenue Officer: DIGNA MORALES ([id number])[facility] (SBHLAB)[address] GLOMERULAR FILTRATION RATE ML/MIN/1.73 SQ M.PREDICTED 35.3 mL/min/1.73m*2 Low >60.0 [facility] Comment on above: Result Comment: Calc ulation based on the Chronic Kidney Disease Epidemiology Collaboration (CKD-EPI) equation refit without adjustment for race Performed By: #### L AB15 ####U.S. Revenue Officer: DIGNA MORALES ([id number])[facility] (SB[facility]AB)[address] Glucose [Mass/Vol] 84 mg/dL Normal 82-115 [facility] Comment on above: Performed By: #### L AB15 ####U.S. Revenue Officer: DIGNA MORALES ([id number])[facility] (SB[facility]AB)[address] Potassium [Moles/Vol] 3.8 mmol/L Normal 3.5-5.1 [facility] Comment on above: Result Comment: [facility] potassium values may be up to 0.5 mmol/L lower than serum values. Performed By: #### L AB15 ####U.S. Revenue Officer: DIGNA MORALES ([id number])[facility] [place] (SBHLAB)[address] Sodium [Moles/Vol] 142 mmol/L Normal 136-145 [facility] Comment on above: Performed By: #### L AB15 ####U.S. Revenue Officer: DIGNAVIRI ARANANicholasREX ([id number])[facility] (SB[facility]AB)[address] Urea nitrogen [Mass/Vol] 21 mg/dL Normal 9-23 [facility] Comment on above: Performed By: #### L AB15 ####U.S. Revenue Officer: DIGNA CARMEN ([id number])[facility] ([facility])[address] Basic metabolic 1998 panelOr dered By: Shaun Topete on 02-13-2025 Anion gap [Moles/Vol] 14 mmol/L High 3 - 13 mmol/L [facility] Calcium [Mass/Vol] 8.8 mg/dL 8.8 - 10. 0 mg/dL [facility] Chloride [Moles/Vol] 107 mmol/L 98 - 10 7 mmol/L [facility] CO2 [Moles/Vol] 21 mmol/L Low 23 - 31 mmol/L [facility] Creatinine [Mass/Vol] 1.85 mg/dL High 0.72 - 1.25 mg/dL [facility] GFR/1.73 sq M.predicted (S/P/Bld) [Vol rate/Area] 35.3 mL/min Low - PINF [facility] Comment on above: Calculation based on the Chronic Kidney Disease Epidemiology Collaboration (CKD-EPI) equation refit without adjustment for race Glucose [Mass/Vol] 84 mg/dL 82 - 115 mg/dL [facility] Interpretation and review of laboratory results Abnormal [facility] Potassium [Moles/Vol] 3.8 mmol/L 3.5 - 5.1 mmol/L [facility] Comment on above: Plasma potassium erika ues may be up to 0.5 mmol/L lower than serum values. Sodium [Moles/Vol] 142 mmol/L 136 - 145 mmol/L [facility] Urea nitrogen [Mass/Vol] 21 mg/dL 9 - 23 mg/d L [facility] CBC (HEMOGRAM)on 02-13-2025 Erythrocyte distribution width (RBC) [Ratio] 19.2 % High 11.5-15.0 [facility] Comment on above: Performed By: #### L [id number] ####U.S. Revenue Officer: DIGNA MORALES ([id number])[facility]OSPITALCarlos DAVISUNM HOSPITALAaron ([facility])[address] [place] [address] Hematocrit (Bld) [Volume fraction] 48.4 % Normal 40.0-52.0 [facility] Comment on above: Performed By: #### L [id number] ####U.S. Revenue Officer: DIGNA MORALES ([id number])[facility] ([facility])[address] [place] [address] Hemoglobin (Bld) [Mass/Vol] 15.6 g/dL Normal 13.0-18.0 [facility] Comment on above: Performed By: #### L AB294 ####U.S. Revenue Officer: DIGNA ROJASREX ([id number])[facility] ([facility])[address] [place] [address] MCH (RBC) [Entitic mass] 28.3 pg Normal 26.0-34.0 [facility] Comment on above: Performed By: #### L AB294 ####U.S. Revenue Officer: DIGNA MORALES ([id number])[facility]ITALCarlos [place] ([facility])[address] [place] [address] MCHC 32.2 % Normal 30.5-36.0 [facility] Comment on above: Performed By: #### L AB294 ####U.S. Revenue Officer: DIGNA MORALES ([id number])[facility]ITALA[facility] ([facility])[address] [place] [address] MCV (RBC) [Entitic vol] 87.7 fL Normal 77.0-99.0 [facility] Comment on above: Performed By: #### L [id number] ####U.S. Revenue Officer: DIGNA MORALES ([id number])[facility] [facility] [place] [address] Platelet mean volume (Bld) [Entitic vol] 10.8 fL Normal 9.0-12.7 [facility] Comment on above: Performed By: #### L [id number] ####U.S. Revenue Officer: DIGNA MORALES ([id number])[facility]ITAL[facility] DAVISUNM HOSPITALAaron (SBHLAB)[address] Platelets (Bld) [#/Vol] 224 10*3/uL Normal 140-440 [facility] Comment on above: Performed By: #### L [id number] ####U.S. Revenue Officer: DIGNA MORALES ([id number])[facility]ITAL[facility] DAVISBANNER (SBHLAB)[address] RBC (Bld) [#/Vol] 5.52 10*6/uL Normal 4.40-5.90 [facility] Comment on above: Performed By: #### L [id number] ####U.S. Revenue Officer: DIGNA MORALES ([id number])[facility] (SBHLAB)[address] WBC (Bld) [#/Vol] 4.4 10*3/uL Normal 3.6-10.7 [facility] Comment on above: Performed By: #### L [id number] ####U.S. Revenue Officer: DIGNA MORALES ([id number])[facility] ([facility])[address] CBC panel Auto (Bld)on 02-13 Erythrocyte distribution width (RBC) [Ratio] 19.2 % High 11.5 - 15.0 % [facility] Hematocrit (Bld) [Volume fraction] 48.4 % 40.0 - 52.0 % [facility] Hemoglobin (Bld) [Mass/Vol] 15.6 g/dL 13.0 - 18.0 g/dL [facility] Interpretation and review of laboratory results Abnormal [facility] MCH (RBC) [Entitic mass] 28.3 pg 26. 0 - 34.0 pg [facility] MCHC (RBC) [Mass/Vol] 32.2 % 30.5 - 36.0 % [facility] MCV (RBC) [Entitic vol] 87.7 fL 77.0 - 99.0 fL [facility] Platelet mean volume (Bld) [Entitic vol] 10.8 fL 9.0 - 12.7 fL [facility] Platelets (Bld) [#/Vol] 224 10*3/uL 140 - 440 10*3/uL [facility] RBC (Bld) [#/Vol] 5.52 10*6/uL 4.40 - 5.9 0 10*6/uL [facility] WBC (Bld) [#/Vol] 4.4 10*3/uL 3.6 - 10.7 10*3/uL [facility] Laboratory - Chemistry and C hemistry - challengeon 02-13-2025 Glucose [Mass/Vol] 100 mg/dL 70 - 100 mg/dL [facility] Glucose [Mass/Vol] 112 mg/dL High 70 - 100 mg/dL [facility] Glucose [Mass/Vol] 133 mg/dL High 70 - 100 mg/dL [facility] Glucose [Mass/Vol] 85 mg/dL 70 - 100 mg/dL [facility] No Panel Informationon 02-13 Interpretation and review of laboratory results Normal [facility] Performed by: Tutu Romeo [address] [place] [address] CLIA ID: [id number] [facility] Interpretation and review of laboratory results Abnormal [facility] Performed by: Tutu Romeo [address] [place] [address] 23484 CLIA ID: [id number] [facility] [place] Interpretation and review of laboratory results Abnormal [facility] Performed by: Tutu Romeo [address] [place] [address] 02014 CLIA ID: [id number] [facility] [place] Interpretation and review of laboratory results Normal [facility] Performed by: Tutu Romeo [address] [place] [address] 13416 CLIA ID: [id number] [facility] [place] [facility] BASIC METABOLIC PANELon 01-19 Anion gap [Moles/Vol] 14 mmol/L High 3-13 [facility] Comment on above: Performed By: #### L AB15, [id number] ####U.S. Revenue Officer: DIGNA MORALES ([id number])TUTU ROMEO (SBHLAB)[address] [place] [address] Calcium [Mass/Vol] 8.4 mg/dL Low 8.8-10.0 [facility] Comment on above: Performed By: #### L AB15, [id number] ####U.S. Revenue Officer: DIGNA MORALES ([id number])[facility] (HLAB)[address] Chloride [Moles/Vol] 106 mmol/L Normal 98-107 [facility] Comment on above: Performed By: #### L AB15, [id number] ####U.S. Revenue Officer: DIGNA MORALES ([id number])[facility] ([facility])[address] CO2 [Moles/Vol] 21 mmol/L Low 23-31 [facility] Comment on above: Performed By: #### L AB15, [id number] ####U.S. Revenue Officer: DIGNA MORALES ([id number])[facility] ([facility])[address] Creatinine [Mass/Vol] 1.73 mg/dL High 0.72-1.25 [facility] Comment on above: Performed By: #### L AB15, [id number] ####U.S. Revenue Officer: DIGNA MORALES ([id number])[facility] ([facility])[address] [place] [address] [place] GLOMERULAR FILTRATION RATE ML/MIN/1.73 SQ M.PREDICTED 38.2 mL/min/1.73m*2 Low >60.0 [facility] Comment on above: Result Comment: Calc ulation based on the Chronic Kidney Disease Epidemiology Collaboration (CKD-EPI) equation refit without adjustment for race Performed By: #### L AB15, [id number] ####U.S. Revenue Officer: DIGNA MORALES ([id number])[facility] ([facility])[address] [place] [address] [place] Glucose [Mass/Vol] 82 mg/dL Normal 82-115 [facility] Comment on above: Performed By: #### L AB15, [id number] ####U.S. Revenue Officer: DIGNA MORALES ([id number])[facility] [place] (SBHLAB)[address] Potassium [Moles/Vol] 2.8 mmol/L Low 3.5-5.1 [facility] Comment on above: Result Comment: [facility] potassium values may be up to 0.5 mmol/L lower than serum values. Performed By: #### L AB15, [id number] ####U.S. Revenue Officer: DIGNA MORALES ([id number])[facility]ITALCarl[facility] BARBUNM HOSPITALN (SBHLAB)[address] Sodium [Moles/Vol] 141 mmol/L Normal 136-145 [facility] Comment on above: Performed By: #### L AB15, [id number] ####U.S. Revenue Officer: DIGNA MORALES ([id number])[facility]ITALCarl[facility] DAVISUNM HOSPITALN (SBHLAB)[address] Urea nitrogen [Mass/Vol] 22 mg/dL Normal 9-23 [facility] Comment on above: Performed By: #### L AB15, [id number] ####U.S. Revenue Officer: DIGNA MORALES ([id number])[facility] (SBHLAB)[address] Basic metabolic 1998 panelOr dered By: Jamila Acosta on 02-12-2025 Anion gap [Moles/Vol] 14 mmol/L High 3 - 13 mmol/L [facility] [email or web address] Calcium [Mass/Vol] 8.4 mg/dL Low 8.8 - 10. 0 mg/dL [facility] [email or web address] Chloride [Moles/Vol] 106 mmol/L 98 - 10 7 mmol/L [facility] CO2 [Moles/Vol] 21 mmol/L Low 23 - 31 mmol/L [facility] Creatinine [Mass/Vol] 1.73 mg/dL High 0.72 - 1.25 mg/dL [facility] GFR/1.73 sq M.predicted (S/P/Bld) [Vol rate/Area] 38.2 mL/min Low - PINF [facility] Comment on above: Calculation based on the Chronic Kidney Disease Epidemiology Collaboration (CKD-EPI) equation refit without adjustment for race Glucose [Mass/Vol] 82 mg/dL 82 - 115 mg/dL [facility] Interpretation and review of laboratory results Abnormal [facility] Potassium [Moles/Vol] 2.8 mmol/L Low 3.5 - 5.1 mmol/L [facility] Comment on above: Plasma potassium erika ues may be up to 0.5 mmol/L lower than serum values. Sodium [Moles/Vol] 141 mmol/L 136 - 145 mmol/L [facility] Urea nitrogen [Mass/Vol] 22 mg/dL 9 - 23 mg/d L [facility] [place] CBC (HEMOGRAM)on 02-12-2025 Erythrocyte distribution width (RBC) [Ratio] 18.5 % High 11.5-15.0 [facility] Comment on above: Performed By: #### L [id number] ####U.S. Revenue Officer: DIGNA MORALES ([id number])[facility] ([facility])[address] [place] [address] Hematocrit (Bld) [Volume fraction] 44.7 % Normal 40.0-52.0 [facility] Comment on above: Performed By: #### L [id number] ####U.S. Revenue Officer: DIGNA MORALES ([id number])[facility] ([facility])[address] [place] [address] Hemoglobin (Bld) [Mass/Vol] 15.1 g/dL Normal 13.0-18.0 [facility] Comment on above: Performed By: #### L [id number] ####U.S. Revenue Officer: DIGNA MORALES ([id number])[facility] (SBHLAB)[address] [place] [address] MCH (RBC) [Entitic mass] 29.3 pg Normal 26.0-34.0 [facility] Comment on above: Performed By: #### L [id number] ####U.S. Revenue Officer: DIGNA MORALES ([id number])[facility] (SBAB)[address] [place] [address] MCHC 33.8 % Normal 30.5-36.0 [facility] Comment on above: Performed By: #### L [id number] ####U.S. Revenue Officer: DIGNA ROJASREX ([id number])[facility]U PILLAIN (SBHLAB)[address] MCV (RBC) [Entitic vol] 86.6 fL Normal 77.0-99.0 [facility] Comment on above: Performed By: #### L [id number] ####U.S. Revenue Officer: DIGNA CARMEN ([id number])[facility]ITALCarl[facility] DAVISUNM HOSPITALN (SBHLAB)[address] Platelet mean volume (Bld) [Entitic vol] 10.6 fL Normal 9.0-12.7 [facility] Comment on above: Performed By: #### L [id number] ####U.S. Revenue Officer: DIGNA CARMEN ([id number])[facility]ITALCarl[facility] DAV[facility]UNM [facility]OSPITALN (SBHLAB)[address] Platelets (Bld) [#/Vol] 205 10*3/uL Normal 140-440 [facility] Comment on above: Performed By: #### L [id number] ####U.S. Revenue Officer: DIGNA ROJASREX ([id number])[facility]ITAL[facility] (SBHLAB)[address] RBC (Bld) [#/Vol] 5.16 10*6/uL Normal 4.40-5.90 [facility] Comment on above: Performed By: #### L [id number] ####U.S. Revenue Officer: DIGNA ROJASREX ([id number])[facility]ITAL[facility]N (SBHLAB)[address] WBC (Bld) [#/Vol] 3.7 10*3/uL Normal 3.6-10.7 [facility] Comment on above: Performed By: #### L [id number] ####U.S. Revenue Officer: DIGNA ROJASREX ([id number])[facility]ITAL[facility]ITALN (SBHLAB)[address] CBC panel Auto (Bld)on 02-12 Erythrocyte distribution width (RBC) [Ratio] 18.5 % High 11.5 - 15.0 % [facility] Hematocrit (Bld) [Volume fraction] 44.7 % 40.0 - 52.0 % [facility] Hemoglobin (Bld) [Mass/Vol] 15.1 g/dL 13.0 - 18.0 g/dL [facility] Interpretation and review of laboratory results Abnormal [facility] MCH (RBC) [Entitic mass] 29.3 pg 26. 0 - 34.0 pg [facility] MCHC (RBC) [Mass/Vol] 33.8 % 30.5 - 36.0 % [facility] MCV (RBC) [Entitic vol] 86.6 fL 77.0 - 99.0 fL [facility] Platelet mean volume (Bld) [Entitic vol] 10.6 fL 9.0 - 12.7 fL [facility] Platelets (Bld) [#/Vol] 205 10*3/uL 140 - 440 10*3/uL [facility] RBC (Bld) [#/Vol] 5.16 10*6/uL 4.40 - 5.9 0 10*6/uL [facility] WBC (Bld) [#/Vol] 3.7 10*3/uL 3.6 - 10.7 10*3/uL [facility] Laboratory - Chemistry and C hemistry - challengeon 02-12-2025 Glucose [Mass/Vol] 155 mg/dL High 70 - 100 mg/dL [facility] Glucose [Mass/Vol] 135 mg/dL High 70 - 100 mg/dL [facility] Glucose [Mass/Vol] 126 mg/dL High 70 - 100 mg/dL [facility] Glucose [Mass/Vol] 92 mg/dL 70 - 100 mg/dL [facility] Glucose [Mass/Vol] 60 mg/dL Low 70 - 100 mg/dL [facility] Procalcitonin [Mass/Vol] 0.08 ng/mL High LISANDRO F - 0.07 ng/mL [facility] No Panel Informationon 02-12 Interpretation and review of laboratory results Abnormal [facility] Performed by: Tutu Romeo [address] [place] [address]007 CLIA ID: [id number] [facility] Interpretation and review of laboratory results Abnormal [facility] Performed by: Jacques Lin [facility] [address] CLIA ID: [id number] [facility] Interpretation and review of laboratory results Abnormal [facility] Performed by: Nelliecarlos Hampton, [address] [place] [address] CLIA ID: [id number] [facility] Interpretation and review of laboratory results Normal [facility] Performed by: Nelliecarlos Romoe, [address] [place] [address], [facility] [address] CLIA ID: [id number] [facility] Interpretation and review of laboratory results Abnormal [facility] Performed by: Nelliecarlos Romeo, [address] [place] [address], [facility] [address] CLIA ID: [id number] [facility] PROCALCITONIN TESTon 025 PROCALCITONIN 0.08 ng/mL High <0.07 [facility] Comment on above: Result Comment: MIO Klein COMMENTS: PCT <0.50 = Low risk of severe sepsis and/or septic shock. PCT >2.00 = High risk of severe sepsis and/or septic shock. Performed By: #### L AB15, [id number] ####U.S. Revenue Officer: DIGNA MORALES ([id number])[facility]ITALCarl[facility] PILLAI (SBHLAB)[address] [place] [address] Procalcitonin [Mass/Vol]on 0 02-12-2025 Interpretation and review of laboratory results Abnormal [facility] PCT <0.50 = Low risk of severe sepsis and/or septic shock. PCT >2.00 = High risk of severe sepsis and/or septic shock. [facility] Progress Noteon 02-12-2025 Progress Note Nutrition Assessment [...] Unable to assess Fluid Accumulation: Severe Extremities Extracorporeal Technician Strength: Not Performed Nutrition Assessment: 84 year old man with PMHx: DMII, CKD stage IIIb, CHF(EF rate ~12% 01/30/25), DVT, bladder cancer, HTN, HLD, PUD. Recent admit 01/28-02/01/25 to [facility] with volume overload and CHF Exacerbation. +scrotal and lower extremity edema for three weeks PVC MONITOR. Treated with IV Lasix and transitioned to 40 mG Torsemide prior to discharge. On day of discharge with weight of 186.6#, and he was discharged home in improved condition. He currently presents to [facility] with worsening swelling, redness, and pain in bilateral lower extremities- presumed cellulitis. Noted weight of 182.4# on evening of 02/09/25. Significant labs on admit: Gap(17), Creatinine(1.94), AST(39), bilirubin(1.8),BNP(> 10865). Negative venous duplex imaging. ID consulted and following with plans to transition form IV cefetpime to PO antibiotics. Pleasant and interactive, resting in bed at time of assessment with bed scale weight of 80.7 kg or 177.9# obtained. Noted patient ate ~75% breakfast tray (observed by this RDN). Cites appetite is ?okay?, +diarrhea and early satiety. Estimates eating two meals daily PVC MONITOR. While he has used ONS in the past- declined a this time due to loose stooling. Requested A brownie and milk, liberlized diet. Estimated Daily Nutrient Needs: Energy Requirements Based On: Kcal/kg Weight Used for Energy Requirements: [place] Weight for Energy Calculation (kg): 67 kg Total Energy Requirements (kcals/day): 9988-9811 (25-30 kcal/kg IBW) Weight Used for Protein Requirements: [place] Weight in Kg Used for Protein Requirements: [...] 186.6# 02/01/25) % Weight Change (Calculated): -4.7 [place] Body Weight (lbs) (Calculated): 148 lbs [place] Body Weight (Kg) (Calculated): 67 kg % [place] Body Weight (Calculated): 120.2 % BMI (kg/m2) (Calculated): 27.9 Weight Adjustment For: No Adjustment BMI Categories: Overweight (BMI 25.0-29.9) Nutrition Diagnosis: Altered nutrition-related lab values related to cardiac dysfunction as evidenced by localized or generalized fluid accumulation, lab values Nutrition Interventions: Nutrition Education/Counseling : Education not indicated Coordination of Nutrition Care: Continue to monitor while inpatient Plan of Care discussed with: patient and RIVER RAFTING GUIDE Goals: Previous Goal Met: Progressing toward Goal(s) Goals: PO intake 50% or greater Nutrition Monitoring and Evaluation: Behavioral-Environme ntal Outcomes: None Identified Food/Nutrient Intake Outcomes: Food and Nutrient Intake Physical Signs/Symptoms Outcomes: Biochemical Data, Chewing or Swallowing, Diarrhea, Nutrition Focused Physical Findings, Skin, Weight, Meal Time Behavior, Hemodynamic Status, Fluid Status or Edema Discharge Planning: Continue current diet Pari Morales, ADRIAN, LDN, Contact: *[phone] Normal [facility] [id number] [phone] Patient is currently active with [email or web address]. The patients current certification period will on 04/04/2025. The patient is currently receiving SN, PT services through the agency. Hospitality Team Member to continue to follow. [facility] Laboratory - Chemistry and C hemistry - challengeon 02-11-2025 Glucose [Mass/Vol] 111 mg/dL High 70 - 100 mg/dL [facility] Glucose [Mass/Vol] 100 mg/dL 70 - 100 mg/dL [facility] [email or web address] Glucose [Mass/Vol] 131 mg/dL High 70 - 100 mg/dL [facility] [email or web address] Glucose [Mass/Vol] 116 mg/dL High 70 - 100 mg/dL [facility] [email or web address] Glucose [Mass/Vol] 67 mg/dL Low 70 - 100 mg/dL [facility] [email or web address] No Panel Informationon 02-11 Interpretation and review of laboratory results Abnormal [facility] [email or web address] Performed by: Tutu Romeo, [address] [place] [address] CLIA ID: [id number] [facility] [email or web address] [facility] Interpretation and review of laboratory results Normal [facility] Performed by: Tutu Romeo [address] [place] [address] CLIA ID: [id number] [facility] Interpretation and review of laboratory results Abnormal [facility] Performed by: Tutu Romeo [address] [place] [address] 21820 CLIA ID: [id number] [facility] Interpretation and review of laboratory results Abnormal [facility] Performed by: [facility] [address] [place] [address] CLIA ID: [id number] [facility] [email or web address] Interpretation and review of laboratory results Abnormal [facility] Performed by: Tutu Romeo [address] [place] [address] CLIA ID: [id number] [facility] Nursing Noteon 02-11-2025 Nursing Note ROLO wrap applied to both feet. Normal [facility] US Lower extremity vein - bi [...] width (RBC) [Ratio] 18.6 % High 11.5-15.0 [facility] Comment on above: Performed By: #### L [id number] ####U.S. Revenue Officer: DIGNA MORALES ([id number])[facility] ([facility])[address] [place] [address] Hematocrit (Bld) [Volume fraction] 45.8 % Normal 40.0-52.0 [facility] Comment on above: Performed By: #### L AB294 ####U.S. Revenue Officer: DIGNA MORALES ([id number])[facility] [place] ([facility])[address] [place] [address] Hemoglobin (Bld) [Mass/Vol] 14.8 g/dL Normal 13.0-18.0 [facility] Comment on above: Performed By: #### L AB294 ####U.S. Revenue Officer: DIGNA MORALES ([id number])[facility] SUSANKENDALL (SBHLAB)[address] MCH (RBC) [Entitic mass] 28.1 pg Normal 26.0-34.0 [facility] Comment on above: Performed By: #### L AB294 ####U.S. Revenue Officer: DIGNA MORALES ([id number])[facility]ITAL[facility] DAVISKENDALL (SBHLAB)[address] MCHC 32.3 % Normal 30.5-36.0 [facility] Comment on above: Performed By: #### L AB294 ####U.S. Revenue Officer: DIGNA MORALES ([id number])[facility]ITAL[facility] SUSANKEND[facility] (SBHLAB)[address] MCV (RBC) [Entitic vol] 87.1 fL Normal 77.0-99.0 [facility] Comment on above: Performed By: #### L AB294 ####U.S. Revenue Officer: DIGNA MORALES ([id number])[facility]ITAL[facility]END[facility] (SBHLAB)[address] Platelet mean volume (Bld) [Entitic vol] 10.7 fL Normal 9.0-12.7 [facility] Comment on above: Performed By: #### L AB294 ####U.S. Revenue Officer: DIGNA MORALES ([id number])[facility]ITAL[facility] SUSANKENDALL (SBHLAB)[address] [place] [address] [place] Platelets (Bld) [#/Vol] 198 10*3/uL Normal 140-440 [facility] Comment on above: Performed By: #### L AB294 ####U.S. Revenue Officer: DIGNA MORALES ([id number])[facility]ITALCarl[facility] BARBKENDALL (SBHLAB)[address] [place] [address] [place] RBC (Bld) [#/Vol] 5.26 10*6/uL Normal 4.40-5.90 [facility] Comment on above: Performed By: #### L AB294 ####U.S. Revenue Officer: DIGNA MORALES ([id number])[facility] SUSANBANNER (SBHLAB)[address] WBC (Bld) [#/Vol] 5.1 10*3/uL Normal 3.6-10.7 [facility] Comment on above: Performed By: #### L AB294 ####U.S. Revenue Officer: DIGNA MORALES ([id number])[facility] (SBHLAB)[address] CBC panel Auto (Bld)on 02-10 Erythrocyte distribution width (RBC) [Ratio] 18.6 % High 11.5 - 15.0 % [facility] Hematocrit (Bld) [Volume fraction] 45.8 % 40.0 - 52.0 % [facility] Hemoglobin (Bld) [Mass/Vol] 14.8 g/dL 13.0 - 18.0 g/dL [facility] Interpretation and review of laboratory results Abnormal [facility] MCH (RBC) [Entitic mass] 28.1 pg 26. 0 - 34.0 pg [facility] MCHC (RBC) [Mass/Vol] 32.3 % 30.5 - 36.0 % [facility] MCV (RBC) [Entitic vol] 87.1 fL 77.0 - 99.0 fL [facility] Platelet mean volume (Bld) [Entitic vol] 10.7 fL 9.0 - 12.7 fL [facility] Platelets (Bld) [#/Vol] 198 10*3/uL 140 - 440 10*3/uL [facility] RBC (Bld) [#/Vol] 5.26 10*6/uL 4.40 - 5.9 0 10*6/uL [facility] WBC (Bld) [#/Vol] 5.1 10*3/uL 3.6 - 10.7 10*3/uL [facility] COMPREHENSIVE METABOLIC PANE Greg 02-10-2025 Albumin [Mass/Vol] 3.4 g/dL Normal 3.4-4.8 [facility] Comment on above: Performed By: #### L AB106, [id number] ####U.S. Revenue Officer: DIGNA MORALES ([id number])[facility] (SBHLAB)[address] ALP [Catalytic activity/Vol] 94 U/L Normal 40-150 [facility] Comment on above: Performed By: #### L AB106, LAB17 ####U.S. Revenue Officer: DIGNA MORALES ([id number])[facility] (SB[facility]AB)[address] ALT [Catalytic activity/Vol] 10 U/L Normal <40 [facility] Comment on above: Performed By: #### L AB106, LAB17 ####U.S. Revenue Officer: DIGNA MORALES ([id number])[facility] (SBHLAB)[address] Anion gap [Moles/Vol] 17 mmol/L High 3-13 [facility] Comment on above: Performed By: #### L AB106, LAB17 ####U.S. Revenue Officer: DIGNA MORALES ([id number])[facility] (SBHLAB)[address] AST [Catalytic activity/Vol] 39 U/L High <34 [facility] Comment on above: Result Comment: TC Potential interference from hemolysis Performed By: #### L AB106, LAB17 ####U.S. Revenue Officer: DIGNA MORLAES ([id number])[facility] (SB[facility]AB)[address] Bilirubin [Mass/Vol] 1.8 mg/dL High <1.2 [facility] Comment on above: Performed By: #### L AB106, LAB17 ####U.S. Revenue Officer: DIGNA MORALES ([id number])[facility] (SBHLAB)[address] Calcium [Mass/Vol] 8.7 mg/dL Low 8.8-10.0 [facility] Comment on above: Performed By: #### L AB106, LAB17 ####U.S. Revenue Officer: DIGNA MORALES ([id number])[facility] [place] (SB[facility]AB)[address] Chloride [Moles/Vol] 102 mmol/L Normal 98-107 [facility] Comment on above: Performed By: #### L AB106, LAB17 ####U.S. Revenue Officer: DIGNA MORALES ([id number])[facility] [place] (SBHLAB)[address] CO2 [Moles/Vol] 22 mmol/L Low 23-31 [facility] Comment on above: Performed By: #### L AB106, LAB17 ####U.S. Revenue Officer: DIGNA MORALES ([id number])[facility] [place] (SBHLAB)[address] Creatinine [Mass/Vol] 1.94 mg/dL High 0.72-1.25 [facility] Comment on above: Performed By: #### L AB106, LAB17 ####U.S. Revenue Officer: DIGNA MORALES ([id number])[facility] [place] (SBHLAB)[address] GLOMERULAR FILTRATION RATE ML/MIN/1.73 SQ M.PREDICTED 33.3 mL/min/1.73m*2 Low >60.0 [facility] Comment on above: Result Comment: Calc ulation based on the Chronic Kidney Disease Epidemiology Collaboration (CKD-EPI) equation refit without adjustment for race Performed By: #### L AB106, LAB17 ####U.S. Revenue Officer: DIGNA MORALES ([id number])[facility] [place] (SBHLAB)155 [place] [address] [place] Glucose [Mass/Vol] 89 mg/dL Normal 82-115 [facility] Comment on above: Performed By: #### L AB106, LAB17 ####U.S. Revenue Officer: DIGNA MORALES ([id number])[facility] [place] (SBHLAB)155 [place] [address] [place] Potassium [Moles/Vol] 3.9 mmol/L Normal 3.5-5.1 [facility] Comment on above: Result Comment: [facility] potassium values may be up to 0.5 mmol/L lower than serum values. Performed By: #### L AB106, LAB17 ####U.S. Revenue Officer: DIGNA MORALES ([id number])[facility] (SBHLAB)[address] Protein [Mass/Vol] 6.6 g/dL Normal 6.4-8.3 [facility] Comment on above: Performed By: #### L AB106, LAB17 ####U.S. Revenue Officer: DIGNA MORALES ([id number])[facility] (SBHLAB)[address] Sodium [Moles/Vol] 141 mmol/L Normal 136-145 [facility] Comment on above: Performed By: #### L AB106, LAB17 ####U.S. Revenue Officer: DIGNA MORALES ([id number])[facility] (SBHLAB)[address] Urea nitrogen [Mass/Vol] 23 mg/dL Normal 9-23 [facility] Comment on above: Performed By: #### L AB106, LAB17 ####U.S. Revenue Officer: DIGNA MORALES ([id number])[facility] (SBHLAB)[address] [place] [address] Comprehensive metabolic 1998 panelon 02-10-2025 Albumin [Mass/Vol] 3.4 g/dL 3.4 - 4.8 g/dL [facility] ALP [Catalytic activity/Vol] 94 U/L 40 - 150 U/L [facility] ALT [Catalytic activity/Vol] 10 U/L NINF - 40 U/L [facility] Anion gap [Moles/Vol] 17 mmol/L High 3 - 13 mmol/L [facility] AST [Catalytic activity/Vol] 39 U/L High NINF - 34 U/L [facility] Comment on above: TC Potential interference from hemolysis Bilirubin [Mass/Vol] 1.8 mg/dL High NINF - 1.2 mg/dL [facility] Calcium [Mass/Vol] 8.7 mg/dL Low 8.8 - 10. 0 mg/dL [facility] Chloride [Moles/Vol] 102 mmol/L 98 - 10 7 mmol/L [facility] CO2 [Moles/Vol] 22 mmol/L Low 23 - 31 mmol/L [facility] Creatinine [Mass/Vol] 1.94 mg/dL High 0.72 - 1.25 mg/dL [facility] GFR/1.73 sq M.predicted (S/P/Bld) [Vol rate/Area] 33.3 mL/min Low - PINF [facility] Comment on above: Calculation based on the Chronic Kidney Disease Epidemiology Collaboration (CKD-EPI) equation refit without adjustment for race Glucose [Mass/Vol] 89 mg/dL 82 - 115 mg/dL [facility] Interpretation and review of laboratory results Abnormal [facility] Potassium [Moles/Vol] 3.9 mmol/L 3.5 - 5.1 mmol/L [facility] Comment on above: Plasma potassium erika ues may be up to 0.5 mmol/L lower than serum values. Protein [Mass/Vol] 6.6 g/dL 6.4 - 8.3 g/dL [facility] Sodium [Moles/Vol] 141 mmol/L 136 - 145 mmol/L [facility] Urea nitrogen [Mass/Vol] 23 mg/dL 9 - 23 mg/d L [facility] Consulton 02-10-2025 Consult [facility] - Infectious Diseases Attending Consult [...] ED (erectile d (more content not included)... [facility] ED Provider Noteon 5 ED Provider [...] mg. Repor (more content not included)... Normal [facility] LACTIC ACID WITH REFLEXon Lactate [Moles/Vol] 2.0 mmol/L Normal 0.5-2.2 [facility] Comment on above: Performed By: #### L [id number] ####U.S. Revenue Officer: DIGNA MORALES ([id number])[facility] ([facility])[address] [place] [address] Laboratory - Chemistry and C hemistry - challengeon 02-10-2025 Glucose [Mass/Vol] 98 mg/dL 70 - 100 mg/dL [facility] Glucose [Mass/Vol] 80 mg/dL 70 - 100 mg/dL [facility] Glucose [Mass/Vol] 83 mg/dL 70 - 100 mg/dL [facility] Lactate [Moles/Vol] 2 mmol/L 0.5 - 2. 2 mmol/L [facility] NT PRO BNPon 02-10-2025 NT PRO BNP >64230 High <450 [facility] Comment on above: Performed By: #### L AB106, LAB17 ####U.S. Revenue Officer: DIGNA MORALES ([id number])[facility] ([facility])[address] [place] [address] Natriuretic peptide B [Mass/ Vol]on 02-10-2025 Interpretation and review of laboratory results Abnormal [facility] Natriuretic peptide B (Bld) [Mass/Vol] pg/mL High NINF - 450 pg/mL [facility] No Panel Informationon 02-10 Interpretation and review of laboratory results Normal [facility] Performed by: Tutu Daviserton, [address] [facility], [facility] [address] CLIA ID: [id number] [facility] Interpretation and review of laboratory results Normal [facility] Performed by: Tutu Romeo, [address] [facility], [facility] [address] CLIA ID: [id number] [facility] Interpretation and review of laboratory results Normal [facility] Performed by: Tutu Pillain, [address] [facility], [facility] [address] CLIA ID: [id number] [facility] Interpretation and review of laboratory results Normal [facility] 36on 02-07-2025 36 TC to Pt No answer LVM [facility] 36 Patient left message saying he had a question about meds [facility] 36 Per Marcela Rosado Pt can continue the Dupixent No answer LVM explaining this as VM states full name [place] [address]on 02-04-2025 36 Heart Failure Clinic Discharge Call [...] again. RP 02/15/25 1430 Pt verbalizes understanding. [facility] 36 Patient called and was returning your phone call [facility] 36 TC to Pt no answer LVM [facility] 36 Discharged with heart failure. Needs 72 hour post discharge phone call. [facility] [phone] 02-01-2025 [id number] Confirmed with Valerie at PCP's office that patient is active with Dr. Durand for PCP and he will follow for home care orders. [facility] [phone] 02-01-2025 [id number] Home Health Care Services - [facility] [address] [place] [phone] Patient/Family Choice [facility] [phone] Next Site of Care Admission Date: 01/28/2025 01:43 AM Patient Name: MEGAN NASCIMENTO Location: [address] [place]ARDIAC [place] [address] Date of : 1940 Placement Information Referral Type:Home Health Care Services - New Referral ID:[id number] Provider Name:[facility] Address 1:Dimit[address] A[address] Address 2: City:[place] Selection Factors:Patient/Fami ly Choice State:[place] Normal [facility] CALCIUM, IONIZEDon CALCIUM IONIZED 4.40 mg/dL Normal 4.30-5.20 [facility] Comment on above: Performed By: #### L AB54 ####U.S. Revenue Officer: JORGE A MALDONADO ([id number])[facility])[address] [place] [address] PH, IONIZED CALCIUM 7.33 Normal 7.31-7.46 [facility] Comment on above: Performed By: #### L AB54 ####U.S. Revenue Officer: JORGE A MALDONADO ([id number])[facility])[address] [place] [address] CBC (HEMOGRAM)on 02-01-2025 Erythrocyte distribution width (RBC) [Ratio] 19.1 % High 11.5-15.0 [facility] Comment on above: Performed By: #### L AB294 #### U.S. Revenue Officer: JORGE A MALDONADO ([id number]) [facility]) [address] [place] [address] Hematocrit (Bld) [Volume fraction] 44.6 % Normal 40.0-52.0 [facility] Comment on above: Performed By: #### L AB294 #### U.S. Revenue Officer: JORGE A MALDONADO ([id number]) [facility]) [address] [place] [address] Hemoglobin (Bld) [Mass/Vol] 14.4 g/dL Normal 13.0-18.0 [facility] Comment on above: Performed By: #### L AB294 #### U.S. Revenue Officer: JORGE A MALDONADO ([id number]) [facility] [address] [place] [address] MCH (RBC) [Entitic mass] 28.2 pg Normal 26.0-34.0 [facility] Comment on above: Performed By: #### L AB294 #### U.S. Revenue Officer: JORGE A MALDONADO ([id number]) [facility] ([facility]) [address] [place] [address] MCHC 32.3 % Normal 30.5-36.0 [facility] Comment on above: Performed By: #### L AB294 #### U.S. Revenue Officer: JORGE A MALDONADO ([id number]) [facility] ([facility]) [address] [place] [address] MCV (RBC) [Entitic vol] 87.5 fL Normal 77.0-99.0 S [facility] Comment on above: Performed By: #### L AB294 #### U.S. Revenue Officer: JORGE A MALDONADO ([id number]) [facility] ([facility]) [address] [place] [address] Platelet mean volume (Bld) [Entitic vol] 10.3 fL Normal 9.0-12.7 [facility] Comment on above: Performed By: #### L AB294 #### U.S. Revenue Officer: JORGE A MALDONADO ([id number]) [facility] ([facility]) [address] [place] [address] Platelets (Bld) [#/Vol] 194 10*3/uL Normal 140-440 [facility] Comment on above: Performed By: #### L AB294 #### U.S. Revenue Officer: JORGE A MALDONADO ([id number]) [facility] ([facility]) [address] [place] [address] RBC (Bld) [#/Vol] 5.10 10*6/uL Normal 4.40-5.90 [facility] Comment on above: Performed By: #### L AB294 #### U.S. Revenue Officer: JORGE A MALDONADO ([id number]) [facility] ([facility]) [address] [place] [address] WBC (Bld) [#/Vol] 4.2 10*3/uL Normal 3.6-10.7 [facility] Comment on above: Performed By: #### L AB294 #### U.S. Revenue Officer: JORGE A MALDONADO ([id number]) [facility] ([facility]) [address] [place] [address] CBC panel Auto (Bld)on 02-01 Erythrocyte distribution width (RBC) [Ratio] 19.1 % High 11.5 - 15.0 % [facility] Hematocrit (Bld) [Volume fraction] 44.6 % 40.0 - 52.0 % [facility] Hemoglobin (Bld) [Mass/Vol] 14.4 g/dL 13.0 - 18.0 g/dL [facility] Interpretation and review of laboratory results Abnormal [facility] MCH (RBC) [Entitic mass] 28.2 pg 26. 0 - 34.0 pg [facility] MCHC (RBC) [Mass/Vol] 32.3 % 30.5 - 36.0 % [facility] MCV (RBC) [Entitic vol] 87.5 fL 77.0 - 99.0 fL [facility] Platelet mean volume (Bld) [Entitic vol] 10.3 fL 9.0 - 12.7 fL [facility] Platelets (Bld) [#/Vol] 194 10*3/uL 140 - 440 10*3/uL [facility] RBC (Bld) [#/Vol] 5.1 10*6/uL 4.40 - 5.9 0 10*6/uL [facility] WBC (Bld) [#/Vol] 4.2 10*3/uL 3.6 - 10.7 10*3/uL [facility] COMPREHENSIVE METABOLIC PANE Greg 02-01-2025 Albumin [Mass/Vol] 3.7 g/dL Normal 3.4-4.8 [facility] Comment on above: Performed By: #### L AB113, LAB17, [id number] ####U.S. Revenue Officer: JORGE A MALDONADO ([id number])[facility] ([facility])[address] [place] [address] ALP [Catalytic activity/Vol] 106 U/L Normal 40-150 [facility] Comment on above: Performed By: #### L AB113, LAB17, [id number] ####U.S. Revenue Officer: JORGE A MALDONADO ([id number])[facility] ([facility])[address] [place] [address] ALT [Catalytic activity/Vol] 14 U/L Normal <40 [facility] Comment on above: Performed By: #### L AB113, LAB17, [id number] ####U.S. Revenue Officer: JORGE A MALDONADO ([id number])[facility] ([facility])[address] [place] [address] Anion gap [Moles/Vol] 10 mmol/L Normal 3-13 [facility] Comment on above: Performed By: #### Russell AB113, LAB17, [id number] ####U.S. Revenue Officer: JORGE A MALDONADO ([id number])[facility] ([facility])[address] [place] [address] AST [Catalytic activity/Vol] 30 U/L Normal <34 [facility] Comment on above: Performed By: #### L AB113, LAB17, [id number] ####U.S. Revenue Officer: JORGE A MALDONADO ([id number])[facility] ([facility])[address] [place] [address] Bilirubin [Mass/Vol] 1.7 mg/dL High <1.2 [facility] Comment on above: Performed By: #### L ABNakul, LAB17, [id number] ####U.S. Revenue Officer: JORGE A MALDONADO ([id number])[facility] ([facility])[address] [place] [address] Calcium [Mass/Vol] 9.6 mg/dL Normal 8.8-10.0 [facility] Comment on above: Performed By: #### L AB113, LAB17, [id number] ####U.S. Revenue Officer: JORGE A MALDONADO ([id number])[facility])[address] [place] [address] Chloride [Moles/Vol] 104 mmol/L Normal 98-107 [facility] Comment on above: Performed By: #### L AB113, LAB17, [id number] ####U.S. Revenue Officer: JORGE A MALDONADO ([id number])[facility] ([facility])[address] [place] [address] [place] CO2 [Moles/Vol] 25 mmol/L Normal 23-31 [facility] Comment on above: Performed By: #### L AB113, LAB17, [id number] ####U.S. Revenue Officer: JORGE A MALDONADO ([id number])[facility] ([facility])[address] [place] [address] Creatinine [Mass/Vol] 1.90 mg/dL High 0.72-1.25 [facility] Comment on above: Performed By: #### L ABNakul, LAB17, [id number] ####U.S. Revenue Officer: JORGE A MALDONADO ([id number])[facility])[address] [place] [address] GLOMERULAR FILTRATION RATE ML/MIN/1.73 SQ M.PREDICTED 34.1 mL/min/1.73m*2 Low >60.0 [facility] Comment on above: Result Comment: Calc ulation based on the Chronic Kidney Disease Epidemiology Collaboration (CKD-EPI) equation refit without adjustment for race Performed By: #### Russell ABNakul, LAB17, [id number] ####U.S. Revenue Officer: JORGE A MALDONADO ([id number])[facility] ([facility])[address] [place] [address] Glucose [Mass/Vol] 121 mg/dL High 82-115 [facility] Comment on above: Performed By: #### L AB113, LAB17, [id number] ####U.S. Revenue Officer: JORGE A MALDONADO ([id number])[facility] ([facility])[address] [place] [address] [place] Potassium [Moles/Vol] 3.7 mmol/L Normal 3.5-5.1 [facility] Comment on above: Result Comment: [facility] potassium values may be up to 0.5 mmol/L lower than serum values. Performed By: #### L AB113, LAB17, [id number] ####U.S. Revenue Officer: JORGE A MALDONADO ([id number])[facility] ([facility])[address] [place] [address] [place] Protein [Mass/Vol] 7.1 g/dL Normal 6.4-8.3 [facility] Comment on above: Performed By: #### L AB113, LAB17, [id number] ####U.S. Revenue Officer: JORGE A MALDONADO ([id number])[facility] ([facility])[address] [place] [address] Sodium [Moles/Vol] 139 mmol/L Normal 136-145 [facility] Comment on above: Performed By: #### L AB113, LAB17, [id number] ####U.S. Revenue Officer: JORGE A MALDONADO ([id number])[facility] ([facility])[address] [place] [address] Urea nitrogen [Mass/Vol] 28 mg/dL High 9-23 [facility] Comment on above: Performed By: #### L AB113, LAB17, [id number] ####U.S. Revenue Officer: JORGE A MALDONADO ([id number])[facility] ([facility])[address] [place] [address] Calcium.ionized [Moles/Vol]O rdered By: Manuel Chow on 02-01-2025 Calcium.ionized (Bld) [Moles/Vol] 4.4 mg/dL 4.30 - 5.20 mg/dL [facility] Interpretation and review of laboratory results Normal [facility] PH, IONIZED CALCIUM 7.33 7.31 - 7.46 [facility] Comprehensive metabolic 1998 panelon 02-01-2025 Albumin [Mass/Vol] 3.7 g/dL 3.4 - 4.8 g/dL [facility] ALP [Catalytic activity/Vol] 106 U/L 40 - 150 U/L [facility] ALT [Catalytic activity/Vol] 14 U/L NINF - 40 U/L [facility] Anion gap [Moles/Vol] 10 mmol/L 3 - 13 mmol/L [facility] AST [Catalytic activity/Vol] 30 U/L NINF - 34 U/L [facility] Bilirubin [Mass/Vol] 1.7 mg/dL High NINF - 1.2 mg/dL [facility] Calcium [Mass/Vol] 9.6 mg/dL 8.8 - 10. 0 mg/dL [facility] Chloride [Moles/Vol] 104 mmol/L 98 - 10 7 mmol/L [facility] CO2 [Moles/Vol] 25 mmol/L 23 - 31 mmol/L [facility] Creatinine [Mass/Vol] 1.9 mg/dL High 0.72 - 1.25 mg/dL [facility] GFR/1.73 sq M.predicted (S/P/Bld) [Vol rate/Area] 34.1 mL/min Low - PINF [facility] Comment on above: Calculation based on the Chronic Kidney Disease Epidemiology Collaboration (CKD-EPI) equation refit without adjustment for race Glucose [Mass/Vol] 121 mg/dL High 82 - 115 mg/dL [facility] Interpretation and review of laboratory results Abnormal [facility] Potassium [Moles/Vol] 3.7 mmol/L 3.5 - 5.1 mmol/L [facility] Comment on above: Plasma potassium erika ues may be up to 0.5 mmol/L lower than serum values. Protein [Mass/Vol] 7.1 g/dL 6.4 - 8.3 g/dL [facility] Sodium [Moles/Vol] 139 mmol/L 136 - 145 mmol/L [facility] Urea nitrogen [Mass/Vol] 28 mg/dL High 9 - 23 mg/d L [facility] Laboratory - Chemistry and C hemistry - challengeon 02-01-2025 Magnesium [Mass/Vol] 2.1 mg/dL 1.6 - 2 .6 mg/dL [facility] Glucose [Mass/Vol] 129 mg/dL High 70 - 100 mg/dL [facility] Glucose [Mass/Vol] 101 mg/dL High 70 - 100 mg/dL [facility] MAGNESIUMon 02-01-2025 Magnesium [Mass/Vol] 2.1 mg/dL Normal 1.6-2.6 [facility] Comment on above: Result Comment: MIO R COMMENTS: Higher values can be expected in females during menses. Performed By: #### L AB113, LAB17, [id number] ####U.S. Revenue Officer: JORGE A MALDONADO ([id number])[facility] ([facility])[address] [place] [address] Magnesium [Mass/Vol]on 02-01 Higher values can be expected in females during menses. [facility] No Panel Informationon 02-01 Interpretation and review of laboratory results Normal [facility] Interpretation and review of laboratory results Abnormal [facility] Performed by: [facility], [address] [place] [address] CLIA ID: [id number] [facility] Interpretation and review of laboratory results Abnormal [facility] Performed by: [facility], [address] [place] [address] CLIA ID: [id number] [facility] Nursing Noteon 02-01-2025 Nursing Note AVS instructions given. Meds to bed delivered. IV's removed. monitor car operator removed, cleaned and placed at corresponding location nurses station. Patient has no questions or concerns at this time. Returning home via family. Normal [facility] PHOSPHORUSon 02-01-2025 Phosphate [Mass/Vol] 2.3 mg/dL Normal 2.3-4.7 [facility] Comment on above: Performed By: #### L AB113, LAB17, [id number] ####U.S. Revenue Officer: JORGE A MALDONADO ([id number])[facility] ([facility])[address] [place] [address] Phosphate [Moles/Vol]on 01-18 Phosphate [Mass/Vol] 2.3 mg/dL 2.3 - 4 .7 mg/dL [facility] 30on 01-31-2025 30 Problem: Knowledge Deficit Goal: [...] Goal: Promote nutritional intake Outcome: Progressing Normal [facility] 30 Problem: Knowledge Deficit Goal: Patient/family/careg [...] Goal: Promote nutritional intake Outcome: Progressing Normal [facility] [id number] 01-31-2025 [id number] Care Managment Initial Assessment Date: 01/31/2025 Patient Name: Megan Nascimento : 1940 Patient Information Source of Information: Patient Cognition/Language: WFL - Within Functional Limits Permission given to speak with patient sales representatives/careg iver as indicated: Yes Confirmation of Payer [...] Alone Support Systems: Children, Family members, Friends/neighbors, investment fund manager/web content & social media manager, Home care staff Activities of Daily Living [...] Walker DME Provider: His daughter is his skin care instructor Patient's Goal/Discharge Plan Patient expects to be [...] for needs. . Nelly Pisano RN Normal [facility] CALCIUM, IONIZEDon CALCIUM IONIZED 4.60 mg/dL Normal 4.30-5.20 [facility] Comment on above: Performed By: #### L AB54 ####U.S. Revenue Officer: JORGE A MALDONADO ([id number])[facility])[address] [place] [address] PH, IONIZED CALCIUM 7.37 Normal 7.31-7.46 [facility] Comment on above: Performed By: #### L AB54 ####U.S. Revenue Officer: JORGE A MALDONADO ([id number])[facility])[address] [place] [address] CALCIUM IONIZED 4.10 mg/dL Low 4.30-5.20 [facility] Comment on above: Performed By: #### L AB54 ####U.S. Revenue Officer: JORGE A MALDONADO ([id number])[facility])[address] [place] [address] PH, IONIZED CALCIUM 7.43 Normal 7.31-7.46 [facility] Comment on above: Performed By: #### L AB54 ####U.S. Revenue Officer: OJRGE A MALDONADO ([id number])[facility])[address] [place] [address] CBC (HEMOGRAM)on 01-31-2025 Erythrocyte distribution width (RBC) [Ratio] 19.4 % High 11.5-15.0 [facility] Comment on above: Performed By: #### L AB294 ####U.S. Revenue Officer: JORGE A MALDONADO ([id number])[address] Hematocrit (Bld) [Volume fraction] 45.5 % Normal 40.0-52.0 [facility] Comment on above: Performed By: #### L AB294 ####U.S. Revenue Officer: JORGE A MALDONADO ([id number])[facility])[address] [place] [address] Hemoglobin (Bld) [Mass/Vol] 14.6 g/dL Normal 13.0-18.0 [facility] Comment on above: Performed By: #### L AB294 ####U.S. Revenue Officer: JORGE A MALDONADO ([id number])[address] MCH (RBC) [Entitic mass] 28.5 pg Normal 26.0-34.0 [facility] Comment on above: Performed By: #### L AB294 ####U.S. Revenue Officer: JORGE A MALDONADO ([id number])[facility])[address] [place] [address] MCHC 32.1 % Normal 30.5-36.0 [facility] Comment on above: Performed By: #### L AB294 ####U.S. Revenue Officer: JORGE A MALDONADO ([id number])[address] MCV (RBC) [Entitic vol] 88.9 fL Normal 77.0-99.0 [facility] Comment on above: Performed By: #### L AB294 ####U.S. Revenue Officer: JORGE A MALDONADO ([id number])[address] Platelet mean volume (Bld) [Entitic vol] 9.8 fL Normal 9.0-12.7 [facility] Comment on above: Performed By: #### L AB294 ####U.S. Revenue Officer: JORGE A MALDONADO ([id number])[facility] ([facility])[address] [place] [address] Platelets (Bld) [#/Vol] 180 10*3/uL Normal 140-440 [facility] Comment on above: Performed By: #### L AB294 ####U.S. Revenue Officer: JORGE A MALDONADO ([id number])[facility])[address] [place] [address] RBC (Bld) [#/Vol] 5.12 10*6/uL Normal 4.40-5.90 [facility] Comment on above: Performed By: #### L AB294 ####U.S. Revenue Officer: JORGE A MALDONADO ([id number])[facility])[address] [place] [address] WBC (Bld) [#/Vol] 4.4 10*3/uL Normal 3.6-10.7 [facility] Comment on above: Performed By: #### L AB294 ####U.S. Revenue Officer: JORGE A MALDONADO ([id number])[facility] ([facility])[address] [place] [address] CBC panel Auto (Bld)on 01-31 Erythrocyte distribution width (RBC) [Ratio] 19.4 % High 11.5 - 15.0 % [facility] Hematocrit (Bld) [Volume fraction] 45.5 % 40.0 - 52.0 % [facility] Hemoglobin (Bld) [Mass/Vol] 14.6 g/dL 13.0 - 18.0 g/dL [facility] Interpretation and review of laboratory results Abnormal [facility] MCH (RBC) [Entitic mass] 28.5 pg 26. 0 - 34.0 pg [facility] MCHC (RBC) [Mass/Vol] 32.1 % 30.5 - 36.0 % [facility] MCV (RBC) [Entitic vol] 88.9 fL 77.0 - 99.0 fL [facility] Platelet mean volume (Bld) [Entitic vol] 9.8 fL 9.0 - 12.7 fL [facility] Platelets (Bld) [#/Vol] 180 10*3/uL 140 - 440 10*3/uL [facility] RBC (Bld) [#/Vol] 5.12 10*6/uL 4.40 - 5.9 0 10*6/uL [facility] WBC (Bld) [#/Vol] 4.4 10*3/uL 3.6 - 10.7 10*3/uL [facility] COMPREHENSIVE METABOLIC PANE Greg 01-31-2025 Albumin [Mass/Vol] 3.5 g/dL Normal 3.4-4.8 [facility] Comment on above: Performed By: #### L AB17, [id number], [id number] ####U.S. Revenue Officer: JORGE A MALDONADO ([id number])[facility] ([facility])[address] [place] [address] ALP [Catalytic activity/Vol] 106 U/L Normal 40-150 [facility] Comment on above: Performed By: #### L AB17, [id number], [id number] ####U.S. Revenue Officer: JORGE A MALDONADO ([id number])[facility] ([facility])[address] [place] [address] ALT [Catalytic activity/Vol] 14 U/L Normal <40 [facility] Comment on above: Performed By: #### Russell AB17, [id number], SIS853 ####U.S. Revenue Officer: JORGE A MALDONADO ([id number])[facility] ([facility])[address] [place] [address] Anion gap [Moles/Vol] 14 mmol/L High 3-13 [facility] Comment on above: Performed By: #### L AB17, [id number], ZNR169 ####U.S. Revenue Officer: JORGE A MALDONADO ([id number])[facility] ([facility])[address] [place] [address] AST [Catalytic activity/Vol] 28 U/L Normal <34 [facility] Comment on above: Performed By: #### L AB17, DGB792, IGR104 ####U.S. Revenue Officer: JORGE A MALDONADO ([id number])[facility] ([facility])[address] [place] [address] Bilirubin [Mass/Vol] 1.6 mg/dL High <1.2 [facility] Comment on above: Performed By: #### L AB17, EYU014, SKR973 ####U.S. Revenue Officer: JORGE A MALDONADO ([id number])[facility])[address] [place] [address] Calcium [Mass/Vol] 9.6 mg/dL Normal 8.8-10.0 [facility] Comment on above: Performed By: #### L AB17, OKI757, LMY773 ####U.S. Revenue Officer: JORGE A MALDONADO ([id number])[facility] ([facility])[address] [place] [address] Chloride [Moles/Vol] 103 mmol/L Normal 98-107 [facility] Comment on above: Performed By: #### Russell AB17, NZY837, LSQ321 ####U.S. Revenue Officer: JORGE A MALDONADO ([id number])[facility])[address] [place] [address] CO2 [Moles/Vol] 23 mmol/L Normal 23-31 [facility] Comment on above: Performed By: #### Russell AB17, HTW195, FAJ874 ####U.S. Revenue Officer: JORGE A MALDONADO ([id number])[facility])[address] [place] [address] Creatinine [Mass/Vol] 1.88 mg/dL High 0.72-1.25 [facility] Comment on above: Performed By: #### Russell AB17, PVO096, IUY255 ####U.S. Revenue Officer: JORGE A MALDONADO ([id number])[facility])[address] [place] [address] [place] GLOMERULAR FILTRATION RATE ML/MIN/1.73 SQ M.PREDICTED 34.6 mL/min/1.73m*2 Low >60.0 [facility] Comment on above: Result Comment: Calc ulation based on the Chronic Kidney Disease Epidemiology Collaboration (CKD-EPI) equation refit without adjustment for race Performed By: #### L AB17, PUB325, RZQ038 ####U.S. Revenue Officer: JORGE A MALDONADO ([id number])[facility])[address] [place] [address] Glucose [Mass/Vol] 121 mg/dL High 82-115 [facility] Comment on above: Performed By: #### L AB17, XPB759, FCL326 ####U.S. Revenue Officer: JORGE A MALDONADO ([id number])[facility])[address] [place] [address] Potassium [Moles/Vol] 4.0 mmol/L Normal 3.5-5.1 [facility] Comment on above: Result Comment: [facility] potassium values may be up to 0.5 mmol/L lower than serum values. Performed By: #### L AB17, KWU082, EPM932 ####U.S. Revenue Officer: JORGE A MALDONADO ([id number])[facility] ([facility])[address] [place] [address] Protein [Mass/Vol] 6.6 g/dL Normal 6.4-8.3 [facility] Comment on above: Performed By: #### L AB17, BXS005, JLX242 ####U.S. Revenue Officer: JORGE A MALDONADO ([id number])[facility])[address] [place] [address] [place] Sodium [Moles/Vol] 140 mmol/L Normal 136-145 [facility] Comment on above: Performed By: #### L AB17, VXS528, HMT050 ####U.S. Revenue Officer: JORGE A MALDONADO ([id number])[facility] [place] [address] [place] Urea nitrogen [Mass/Vol] 31 mg/dL High 9-23 [facility] Comment on above: Performed By: #### L AB17, EIY301, XUW757 ####U.S. Revenue Officer: JORGE A MALDONADO ([id number])[facility] ([facility])[address] [place] [address] [place] Albumin [Mass/Vol] 3.3 g/dL Low 3.4-4.8 [facility] Comment on above: Performed By: #### L AB113, LAB17, JUQ516 ####U.S. Revenue Officer: JORGE A MALDONADO ([id number])[facility])[address] [place] [address] ALP [Catalytic activity/Vol] 97 U/L Normal 40-150 [facility] Comment on above: Performed By: #### Russell ABNakul, LAB17, IBH492 ####U.S. Revenue Officer: JORGE A MALDONADO ([id number])[facility] [place] [address] ALT [Catalytic activity/Vol] 11 U/L Normal <40 [facility] Comment on above: Performed By: #### L AB113, LAB17, RAM454 ####U.S. Revenue Officer: JORGE A MALDONADO ([id number])[facility] ([facility])[address] [place] [address] Anion gap [Moles/Vol] 8 mmol/L Normal 3-13 [facility] Comment on above: Performed By: #### Russell ABNakul, LAB17, [id number] ####U.S. Revenue Officer: JORGE A MALDONADO ([id number])[facility] ([facility])[address] [place] [address] AST [Catalytic activity/Vol] 30 U/L Normal <34 [facility] Comment on above: Performed By: #### Russell ABNakul, LAB17, KUW306 ####U.S. Revenue Officer: JORGE A MALDONADO ([id number])[facility] ([facility])[address] [place] [address] Bilirubin [Mass/Vol] 1.5 mg/dL High <1.2 [facility] Comment on above: Performed By: #### Russell ABNakul, LAB17, QJJ307 ####U.S. Revenue Officer: JORGE A MALDONADO ([id number])[facility] ([facility])[address] [place] [address] [place] Calcium [Mass/Vol] 9.0 mg/dL Normal 8.8-10.0 [facility] Comment on above: Performed By: #### L AB113, LAB17, HHF894 ####U.S. Revenue Officer: JORGE A MALDONADO ([id number])[facility] ([facility])[address] [place] [address] [place] Chloride [Moles/Vol] 105 mmol/L Normal 98-107 [facility] Comment on above: Performed By: #### L AB113, LAB17, SEM456 ####U.S. Revenue Officer: JORGE A MALDONADO ([id number])[facility])[address] [place] [address] CO2 [Moles/Vol] 27 mmol/L Normal 23-31 [facility] Comment on above: Performed By: #### L AB113, LAB17, RWE888 ####U.S. Revenue Officer: JORGE A MALDONADO ([id number])[facility])[address] [place] [address] Creatinine [Mass/Vol] 1.94 mg/dL High 0.72-1.25 [facility] Comment on above: Performed By: #### L AB113, LAB17, HGE588 ####U.S. Revenue Officer: JORGE A MALDONADO ([id number])[facility])[address] [place] [address] GLOMERULAR FILTRATION RATE ML/MIN/1.73 SQ M.PREDICTED 33.3 mL/min/1.73m*2 Low >60.0 [facility] Comment on above: Result Comment: Calc ulation based on the Chronic Kidney Disease Epidemiology Collaboration (CKD-EPI) equation refit without adjustment for race Performed By: #### L AB113, LAB17, WLR944 ####U.S. Revenue Officer: JORGE A MALDONADO ([id number])[facility])[address] [place] [address] Glucose [Mass/Vol] 130 mg/dL High 82-115 [facility] Comment on above: Performed By: #### L AB113, LAB17, HPK095 ####U.S. Revenue Officer: JORGE A MALDONADO ([id number])[facility])[address] [place] [address] Potassium [Moles/Vol] 3.6 mmol/L Normal 3.5-5.1 [facility] Comment on above: Result Comment: [facility] potassium values may be up to 0.5 mmol/L lower than serum values. Performed By: #### L AB113, LAB17, KCP889 ####U.S. Revenue Officer: JORGE A MALDONADO ([id number])[facility] ([facility])[address] [place] [address] Protein [Mass/Vol] 6.5 g/dL Normal 6.4-8.3 [facility] Comment on above: Performed By: #### L AB113, LAB17, KHR721 ####U.S. Revenue Officer: JORGE A MALDONADO ([id number])[facility] ([facility])[address] [place] [address] Sodium [Moles/Vol] 140 mmol/L Normal 136-145 [facility] Comment on above: Performed By: #### L AB113, LAB17, OAT223 ####U.S. Revenue Officer: JORGE A MALDONADO ([id number])[facility] ([facility])[address] [place] [address] Urea nitrogen [Mass/Vol] 30 mg/dL High 9-23 [facility] Comment on above: Performed By: #### L AB113, LAB17, RQS396 ####U.S. Revenue Officer: JORGE A MALDONADO ([id number])[facility] ([facility])[address] [place] [address] Calcium.ionized [Moles/Vol]o n 01-31-2025 Calcium.ionized (Bld) [Moles/Vol] 4.6 mg/dL 4.30 - 5.20 mg/dL [facility] Interpretation and review of laboratory results Normal [facility] PH, IONIZED CALCIUM 7.37 7.31 - 7.46 [facility] Calcium.ionized [Moles/Vol]O rdered By: Lev Milian on 01-31-2025 Calcium.ionized (Bld) [Moles/Vol] 4.1 mg/dL Low 4.30 - 5.20 mg/dL [facility] Interpretation and review of laboratory results Abnormal [facility] PH, IONIZED CALCIUM 7.43 7.31 - 7.46 [facility] Comprehensive metabolic 1998 panelon 01-31-2025 Albumin [Mass/Vol] 3.5 g/dL 3.4 - 4.8 g/dL [facility] ALP [Catalytic activity/Vol] 106 U/L 40 - 150 U/L [facility] ALT [Catalytic activity/Vol] 14 U/L NINF - 40 U/L [facility] Anion gap [Moles/Vol] 14 mmol/L High 3 - 13 mmol/L [facility] AST [Catalytic activity/Vol] 28 U/L NINF - 34 U/L [facility] Bilirubin [Mass/Vol] 1.6 mg/dL High NINF - 1.2 mg/dL [facility] Calcium [Mass/Vol] 9.6 mg/dL 8.8 - 10. 0 mg/dL [facility] Chloride [Moles/Vol] 103 mmol/L 98 - 10 7 mmol/L [facility] CO2 [Moles/Vol] 23 mmol/L 23 - 31 mmol/L [facility] Creatinine [Mass/Vol] 1.88 mg/dL High 0.72 - 1.25 mg/dL [facility] GFR/1.73 sq M.predicted (S/P/Bld) [Vol rate/Area] 34.6 mL/min Low - PINF [facility] Comment on above: Calculation based on the Chronic Kidney Disease Epidemiology Collaboration (CKD-EPI) equation refit without adjustment for race Glucose [Mass/Vol] 121 mg/dL High 82 - 115 mg/dL [facility] Interpretation and review of laboratory results Abnormal [facility] Potassium [Moles/Vol] 4 mmol/L 3.5 - 5.1 mmol/L [facility] Comment on above: Plasma potassium erika ues may be up to 0.5 mmol/L lower than serum values. Protein [Mass/Vol] 6.6 g/dL 6.4 - 8.3 g/dL [facility] Sodium [Moles/Vol] 140 mmol/L 136 - 145 mmol/L [facility] Urea nitrogen [Mass/Vol] 31 mg/dL High 9 - 23 mg/d L [facility] Albumin [Mass/Vol] 3.3 g/dL Low 3.4 - 4.8 g/dL [facility] ALP [Catalytic activity/Vol] 97 U/L 40 - 150 U/L [facility] ALT [Catalytic activity/Vol] 11 U/L NINF - 40 U/L [facility] Anion gap [Moles/Vol] 8 mmol/L 3 - 13 mmol/L [facility] AST [Catalytic activity/Vol] 30 U/L NINF - 34 U/L [facility] Bilirubin [Mass/Vol] 1.5 mg/dL High NINF - 1.2 mg/dL [facility] Calcium [Mass/Vol] 9 mg/dL 8.8 - 10. 0 mg/dL [facility] Chloride [Moles/Vol] 105 mmol/L 98 - 10 7 mmol/L [facility] CO2 [Moles/Vol] 27 mmol/L 23 - 31 mmol/L [facility] Creatinine [Mass/Vol] 1.94 mg/dL High 0.72 - 1.25 mg/dL [facility] GFR/1.73 sq M.predicted (S/P/Bld) [Vol rate/Area] 33.3 mL/min Low - PINF [facility] Comment on above: Calculation based on the Chronic Kidney Disease Epidemiology Collaboration (CKD-EPI) equation refit without adjustment for race Glucose [Mass/Vol] 130 mg/dL High 82 - 115 mg/dL [facility] Potassium [Moles/Vol] 3.6 mmol/L 3.5 - 5.1 mmol/L [facility] Comment on above: Plasma potassium erika ues may be up to 0.5 mmol/L lower than serum values. Protein [Mass/Vol] 6.5 g/dL 6.4 - 8.3 g/dL [facility] Sodium [Moles/Vol] 140 mmol/L 136 - 145 mmol/L [facility] Urea nitrogen [Mass/Vol] 30 mg/dL High 9 - 23 mg/d L [facility] Laboratory - Chemistry and C hemistry - challengeon 01-31-2025 Glucose [Mass/Vol] 114 mg/dL High 70 - 100 mg/dL [facility] Magnesium [Mass/Vol] 2.2 mg/dL 1.6 - 2 .6 mg/dL [facility] Glucose [Mass/Vol] 121 mg/dL High 70 - 100 mg/dL [facility] Magnesium [Mass/Vol] 2.2 mg/dL 1.6 - 2 .6 mg/dL [facility] Glucose [Mass/Vol] 124 mg/dL High 70 - 100 mg/dL [facility] Glucose [Mass/Vol] 141 mg/dL High 70 - 100 mg/dL [facility] MAGNESIUMon 01-31-2025 Magnesium [Mass/Vol] 2.2 mg/dL Normal 1.6-2.6 [facility] Comment on above: Result Comment: MIO R COMMENTS: Higher values can be expected in females during menses. Performed By: #### L AB17, [id number], [id number] ####U.S. Revenue Officer: JORGE A MALDONADO ([id number])[facility] ([facility])[address] [place] [address] Magnesium [Mass/Vol] 2.2 mg/dL Normal 1.6-2.6 [facility] Comment on above: Result Comment: MIO Klein COMMENTS: Higher values can be expected in females during menses. Performed By: #### L AB113, LAB17, EYU452 ####U.S. Revenue Officer: JORGE A MALDONADO ([id number])[facility] ([facility])[address] [place] [address] Magnesium [Mass/Vol]on 01-31 Higher values can be expected in females during menses. [facility] Interpretation and review of laboratory results Normal [facility] Higher values can be expected in females during menses. [facility] [email or web address] No Panel Informationon 01-31 Interpretation and review of laboratory results Abnormal [facility] Performed by: [place] [address] CLIA ID: [id number] [facility] Interpretation and review of laboratory results Normal [facility] Interpretation and review of laboratory results Abnormal [facility] Performed by: [place] [address] CLIA ID: [id number] [facility] Interpretation and review of laboratory results Abnormal [facility] Interpretation and review of laboratory results Abnormal [facility] Performed by: [place] [address] CLIA ID: [id number] [facility] Interpretation and review of laboratory results Abnormal [facility] Performed by: [address] [address] CLIA ID: [id number] [facility] Nursing Noteon 01-31-2025 Nursing Note Wound Care [...] care given). Prevention Measures in place, including: [place] sheet with pillows (in place), Pt declined Bilateral foam heel protectors, off loading heels on pillows, Sacral foam and, Zinc/Moisture Barrier ointment. Moisture absorbant pad (in place), Bed Alarm On. Skin Care precaution order set in place d/t Simon score 18 on 01/28/2025. Dietitian consult in place. PT consult NA Simon > 3. D/W citrus picker skin assessment, preventions, and interventions implemented. Will continue to follow pt. Please Voicera for any questions or concerns. Saundra Vinson, RN, BSN Normal [facility] PHOSPHORUSon 01-31-2025 Phosphate [Mass/Vol] 2.3 mg/dL Normal 2.3-4.7 [facility] Comment on above: Performed By: #### L AB17, [id number], [id number] ####U.S. Revenue Officer: JORGE A MALDONADO ([id number])[address] Phosphate [Mass/Vol] 2.2 mg/dL Low 2.3-4.7 [facility] Comment on above: Performed By: #### L AB113, LAB17, EQS531 ####U.S. Revenue Officer: JORGE A MALDONADO ([id number])[facility])[address] [place] [address] Phosphate [Moles/Vol]on 01-18 Phosphate [Mass/Vol] 2.3 mg/dL 2.3 - 4 .7 mg/dL [facility] Phosphate [Mass/Vol] 2.2 mg/dL Low 2.3 - 4 .7 mg/dL [facility] US Heart TransthoracicOrdere d By: Jarret Weldon on 01-31-2025 Aortic Sinus Valsalva 3.8 cm [facility] Work Phone: Aortic Sinus Valsalva Index 1.93 cm/m2 [facility] Work Phone: Aortic valve Mean systole pressure gradient by US.doppler derived full Bernoulli 3 mmHg [facility] Work Phone: Aortic valve Orifice area by US 4.5 cm2 [facility] Work Phone: Aortic valve Peak systolic flow by US.doppler 0.8 m/s [facility] Work Phone: AR Max Velocity PISA 3.6 m/s [facility] Work Phone: AR PHT 483.6 ms [facility] Work Phone: Ascending Aorta 4.3 cm [facility] Work Phone: Ascending Aorta Index 2.18 cm/m2 [facility] Work Phone: AV Area by Peak Velocity 1.5 cm2 [facility] Work Phone: AV Area by Planimetry 1.7 cm2 [facility] Work Phone: AV Area by VTI 1.4 cm2 [facility] Work Phone: AV Peak Gradient 6 mmHg [facility] Work Phone: AV Peak Velocity 1.2 m/s [facility] Work Phone: AV Velocity Ratio 0.33 [facility] Work Phone: AV VTI 26.1 cm [facility] Work Phone: BRITTA/BSA 0.86 cm2/m2 [facility] Work Phone: BRITTA/BSA Peak Velocity 0.8 cm2/m2 [facility] Work Phone: BRITTA/BSA VTI 0.7 cm2/m2 [facility] Work Phone: E/E' Septal 18.6 [facility] Work Phone: Est. RA Pressure 15 mmHg [facility] Work Phone: [phone] Fractional Shortening 2D 6 % 28 - 44 % [facility] [email or web address] Work Phone: Interpretation and review of laboratory results Abnormal [facility] [email or web address] Work Phone: IVC Diameter 2.7 cm [facility] [email or web address] Work Phone: [phone] IVSd 1.1 cm Abnormal 0.6 - 1.0 cm [facility] [email or web address] Work Phone: [phone] LA Diameter 5.6 cm [facility] [email or web address] Work Phone: [phone] LA Size Index 2.84 cm/m2 [facility] [employer] Work Phone: [phone] LA Volume 2C 97 mL Abnormal 18 - 58 mL [facility] [email or web address] Work Phone: [phone] LA Volume 4C 110 mL Abnormal 18 - 58 mL [facility] [employer] Phone: LA Volume A/L 114 mL [facility] Work Phone: LA Volume BP 109 mL Abnormal 18 - 58 mL [facility] [email or web address] Work Phone: LA Volume Index 2C 49 mL/m2 Abnormal 16 - 34 mL/m2 [facility] [email or web address] Work Phone: [phone] LA Volume Index 4C 56 mL/m2 Abnormal 16 - 34 mL/m2 [facility] [email or web address] Work Phone: LA Volume Index A/L 58 mL/m2 16 - 34 mL/m2 [facility] [employer] Phone: LA Volume Index BP 55 ml/m2 Abnormal 16 - 34 ml/m2 [facility] [email or web address] Work Phone: Left ventricular Ejection fraction by US.2D+Calculated by biplane method of disks 12 % Abnormal 55 - 100 % [facility] Work Phone: [phone] LV E' Septal Velocity 5 cm/s [facility] [email or web address] Work Phone: [phone] LV EDV A2C 212 mL [facility] [email or web address] Work Phone: [phone] LV EDV A4C 181 mL [facility] [email or web address] Work Phone: [phone] LV EDV BP 197 mL Abnormal 67 - 155 mL [facility] [email or web address] Work Phone: LV EDV Index A2C 108 mL/m2 [facility] Work Phone: LV EDV Index A4C 92 mL/m2 [facility] Work Phone: LV EDV Index BP 100 mL/m2 [facility] Work Phone: LV Ejection Fraction A2C 16 % [facility] Work Phone: LV Ejection Fraction A4C 9 % [facility] Work Phone: LV ESV A2C 178 mL [facility] Work Phone: LV ESV A4C 165 mL [facility] Work Phone: LV ESV BP 173 mL Abnormal 22 - 58 mL [facility] Work Phone: LV ESV Index A2C 90 mL/m2 [facility] Work Phone: LV ESV Index A4C 84 mL/m2 [facility] Work Phone: LV ESV Index BP 88 mL/m2 [facility] Work Phone: LV Mass 2D 234.8 g Abnormal 88 - 224 g [facility] Work Phone: LV Mass 2D Index 119.2 g/m2 Abnormal 49 - 115 g/m2 [facility] Work Phone: LV RWT Ratio 0.41 [facility] Work Phone: LVIDd 5.4 cm 4.2 - 5.9 cm [facility] Work Phone: LVIDd Index 2.74 cm/m2 [facility] Work Phone: LVIDs 5.1 cm [facility] Work Phone: LVIDs Index 2.59 cm/m2 [facility] Work Phone: LVOT Cardiac Output 2.7 liter/minute [facility] Work Phone: LVOT Diameter 2.4 cm [facility] Work Phone: LVOT Mean Gradient 0 mmHg [facility] Work Phone: LVOT Peak Gradient 1 mmHg [facility] [email or web address] Work Phone: LVOT Peak Velocity 0.4 m/s [facility] Work Phone: LVOT Stroke Volume Index 19.5 mL/m2 [facility] Work Phone: LVOT SV 38.4 ml [facility] Work Phone: LVOT VTI 8.5 cm [facility] Work Phone: LVOT:AV VTI Index 0.33 [facility] Work Phone: LVPWd 1.1 cm Abnormal 0.6 - 1.0 cm [facility] Work Phone: MV A Velocity 0.36 [facility]: [facility] E Velocity 0.93 [facility] Work Phone: MV E Wave Deceleration Time 185.6 ms [facility] [email or web address] Work Phone: MV E/A 2.58 [facility] [email or web address] Work Phone: RA Area 4C 144.7 mL [facility] [email or web address] Work Phone: RV Basal Dimension 4.9 cm [facility] [email or web address] Work Phone: RV Free Wall Peak S' 11 cm/s [facility] [email or web address] Work Phone: RV Longitudinal Dimension 7.3 cm [facility] Work Phone: RV Mid Dimension 3.2 cm [facility] Work Phone: RVSP 50 mmHg [facility] Work Phone: TAPSE 2 cm 1.7 cm [facility] Work Phone: TR Max Velocity 2.94 [facility] Work Phone: TR Peak Gradient 35 mmHg [facility] Work Phone: TR Peak Velocity PISA 2.5 m/s [facility] Work Phone: TR VTI 82.7 cm [facility] [email or web address] Work Phone: TV EROA 0.4 cm2 [employer] Work Phone: TV Nyquist Velocity 42 cm/s [employer] Work Phone: [employer] Work Phone: [facility] Transthor[employer]icon Left Ventricle: Left ventricle size is [...] anterior, apical septal and apical inferior. [facility]-2025 30 Problem: Hemodynamic Status Goal: Patient's [...] brakes on, call light in reach. Normal [facility] CALCIUM, IONIZEDon CALCIUM IONIZED 4.30 mg/dL Normal 4.30-5.20 [facility] Comment on above: Performed By: #### L AB54 ####U.[employer]. Revenue Officer: JORGE A MALDONADO ([id number])[address] PH, IONIZED CALCIUM 7.39 Normal 7.31-7.46 [facility] Comment on above: Performed By: #### L AB54 ####U.[employer]. Revenue Officer: JORGE A MALDONADO ([id number])[facility])[address] [place] [address] CALCIUM IONIZED 4.50 mg/dL Normal 4.30-5.20 [facility] Comment on above: Performed By: #### L AB54 ####U.[employer]. Revenue Officer: JORGE A MALDONADO ([id number])[address] PH, IONIZED CALCIUM 7.35 Normal 7.31-7.46 [facility] Comment on above: Performed By: #### L AB54 ####U.[employer]. Revenue Officer: JORGE A MALDONADO ([id number])[address] CBC (HEMOGRAM)on 01-30-2025 Erythrocyte distribution width (RBC) [Ratio] 19.5 % High 11.5-15.0 [facility] Comment on above: Performed By: #### L AB294 ####U.[employer]. Revenue Officer: JORGE A MALDONADO ([id number])[place] [address] [place] Hematocrit (Bld) [Volume fraction] 45.8 % Normal 40.0-52.0 [facility] Comment on above: Performed By: #### L AB294 ####U.[employer]. Revenue Officer: JORGE A MALDONADO ([id number])[facility])[address] [place] [address] Hemoglobin (Bld) [Mass/Vol] 14.9 g/dL Normal 13.0-18.0 [facility] Comment on above: Performed By: #### L AB294 ####U.S. Revenue Officer: JORGE A MALDONADO ([id number])[facility])[address] [place] [address] MCH (RBC) [Entitic mass] 28.9 pg Normal 26.0-34.0 [facility] Comment on above: Performed By: #### L AB294 ####U.S. Revenue Officer: JORGE A MALDONADO ([id number])[facility])[address] [place] [address] MCHC 32.5 % Normal 30.5-36.0 [facility] Comment on above: Performed By: #### L AB294 ####U.S. Revenue Officer: JORGE A MALDONADO ([id number])[facility] ([facility])[address] [place] [address] MCV (RBC) [Entitic vol] 88.8 fL Normal 77.0-99.0 [facility] Comment on above: Performed By: #### L AB294 ####U.S. Revenue Officer: JORGE A MALDONADO ([id number])[facility])[address] [place] [address] Platelet mean volume (Bld) [Entitic vol] 10.6 fL Normal 9.0-12.7 [facility] Comment on above: Performed By: #### L AB294 ####U.S. Revenue Officer: JORGE A MALDONADO ([id number])[facility])[address] [place] [address] Platelets (Bld) [#/Vol] 205 10*3/uL Normal 140-440 [facility] Comment on above: Performed By: #### L AB294 ####U.S. Revenue Officer: JORGE A MALDONADO ([id number])[address] RBC (Bld) [#/Vol] 5.16 10*6/uL Normal 4.40-5.90 [facility] Comment on above: Performed By: #### L AB294 ####U.S. Revenue Officer: JORGE A MALDONADO ([id number])[facility])[address] [place] [address] WBC (Bld) [#/Vol] 5.0 10*3/uL Normal 3.6-10.7 [facility] Comment on above: Performed By: #### L AB294 ####U.S. Revenue Officer: JORGE A MALDONADO ([id number])[address] CBC panel Auto (Bld)on 01-30 Erythrocyte distribution width (RBC) [Ratio] 19.5 % High 11.5 - 15.0 % [facility] Hematocrit (Bld) [Volume fraction] 45.8 % 40.0 - 52.0 % [facility] Hemoglobin (Bld) [Mass/Vol] 14.9 g/dL 13.0 - 18.0 g/dL [facility] Interpretation and review of laboratory results Abnormal [facility] MCH (RBC) [Entitic mass] 28.9 pg 26. 0 - 34.0 pg [facility] MCHC (RBC) [Mass/Vol] 32.5 % 30.5 - 36.0 % [facility] MCV (RBC) [Entitic vol] 88.8 fL 77.0 - 99.0 fL [facility] Platelet mean volume (Bld) [Entitic vol] 10.6 fL 9.0 - 12.7 fL [facility] Platelets (Bld) [#/Vol] 205 10*3/uL 140 - 440 10*3/uL [facility] RBC (Bld) [#/Vol] 5.16 10*6/uL 4.40 - 5.9 0 10*6/uL [facility] WBC (Bld) [#/Vol] 5 10*3/uL 3.6 - 10.7 10*3/uL [facility] METABOLIC PANE Greg 01-30-2025 Albumin [Mass/Vol] 3.5 g/dL Normal 3.4-4.8 [facility] Comment on above: Performed By: #### L AB17, [id number], [id number] ####U.S. Revenue Officer: JORGE A MALDONADO ([id number])[facility] ([facility])[address] [place] [address] ALP [Catalytic activity/Vol] 103 U/L Normal 40-150 [facility] Comment on above: Performed By: #### L AB17, [id number], [id number] ####U.S. Revenue Officer: JORGE A MALDONADO ([id number])[facility] ([facility])[address] [place] [address] ALT [Catalytic activity/Vol] 12 U/L Normal <40 [facility] Comment on above: Performed By: #### L AB17, [id number], [id number] ####U.S. Revenue Officer: JORGE A MALDONADO ([id number])[facility] ([facility])[address] [place] [address] Anion gap [Moles/Vol] 14 mmol/L High 3-13 [facility] Comment on above: Performed By: #### L AB17, [id number], [id number] ####U.S. Revenue Officer: JORGE A MALDONADO ([id number])[facility] ([facility])[address] [place] [address] AST [Catalytic activity/Vol] 27 U/L Normal <34 [facility] Comment on above: Performed By: #### L AB17, [id number], ORV545 ####U.[employer]. Revenue Officer: JORGE A MALDONADO ([id number])[facility] ([facility])[address] [place] [address] Bilirubin [Mass/Vol] 1.5 mg/dL High <1.2 [facility] Comment on above: Performed By: #### L AB17, [id number], ZQV606 ####U.[employer]. Revenue Officer: JORGE A MALDONADO ([id number])[facility] ([facility])[address] [place] [address] Calcium [Mass/Vol] 9.1 mg/dL Normal 8.8-10.0 [facility] Comment on above: Performed By: #### L AB17, OGV066, YTH635 ####U.[employer]. Revenue Officer: JORGE A MALDONADO ([id number])[facility] [place] [address] Chloride [Moles/Vol] 106 mmol/L Normal 98-107 [facility] Comment on above: Performed By: #### L AB17, IFA666, PRD109 ####U.S. Revenue Officer: JORGE A MALDONADO ([id number])[facility] ([facility])[address] [place] [address] CO2 [Moles/Vol] 21 mmol/L Low 23-31 [facility] Comment on above: Performed By: #### Russell AB17, SXY901, ZJP686 ####U.[employer]. Revenue Officer: JORGE A MALDONADO ([id number])[facility] ([facility])[address] [place] [address] Creatinine [Mass/Vol] 1.95 mg/dL High 0.72-1.25 [facility] Comment on above: Performed By: #### Russell AB17, ZFO509, [id number] ####U.S. Revenue Officer: JORGE A MALDONADO ([id number])[facility] ([facility])[address] [place] [address] [place] GLOMERULAR FILTRATION RATE ML/MIN/1.73 SQ M.PREDICTED 33.1 mL/min/1.73m*2 Low >60.0 [facility] Comment on above: Result Comment: Calc ulation based on the Chronic Kidney Disease Epidemiology Collaboration (CKD-EPI) equation refit without adjustment for race Performed By: #### L AB17, [id number], NFA527 ####U.[employer]. Revenue Officer: JORGE A MALDONADO ([id number])[facility] ([facility])[address] [place] [address] [place] Glucose [Mass/Vol] 144 mg/dL High 82-115 [facility] Comment on above: Performed By: #### L AB17, [id number], ZZK181 ####U.S. Revenue Officer: JORGE A [id number])[facility] ([facility])[address] [place] [address] Potassium [Moles/Vol] 3.6 mmol/L Normal 3.5-5.1 [facility] Comment on above: Result Comment: [facility] potassium values may be up to 0.5 mmol/L lower than serum values. Performed By: #### L AB17, PLJ079, HLI959 ####U.[employer]. Revenue Officer: JORGE A MALDONADO ([id number])[facility] ([facility])[address] [place] [address] Protein [Mass/Vol] 6.7 g/dL Normal 6.4-8.3 [facility] Comment on above: Performed By: #### L AB17, [id number], TRN792 ####U.[employer]. Revenue Officer: JORGE A MALDONADO ([id number])[facility] ([facility])[address] [place] [address] Sodium [Moles/Vol] 141 mmol/L Normal 136-145 [facility] Comment on above: Performed By: #### L AB17, DMN981, ZED342 ####U.[employer]. Revenue Officer: JORGE A MALDONADO ([id number])[facility] ([facility])[address] [place] [address] Urea nitrogen [Mass/Vol] 32 mg/dL High 9-23 [facility] Comment on above: Performed By: #### L AB17, SJJ066, VEE234 ####U.S. Revenue Officer: JORGE A MALDONADO ([id number])[facility])[address] [place] [address] Albumin [Mass/Vol] 3.6 g/dL Normal 3.4-4.8 [facility] Comment on above: Performed By: #### L AB103, LAB17, YFB572 ####U.S. Revenue Officer: JORGE A MALDONADO ([id number])[facility])[address] [place] [address] ALP [Catalytic activity/Vol] 105 U/L Normal 40-150 [facility] Comment on above: Performed By: #### L AB103, LAB17, DVD499 ####U.S. Revenue Officer: JORGE A MALDONADO ([id number])[facility] ([facility])[address] [place] [address] ALT [Catalytic activity/Vol] 13 U/L Normal <40 [facility] Comment on above: Performed By: #### L AB103, LAB17, EJF427 ####U.[employer]. Revenue Officer: JORGE A MALDONADO ([id number])[facility] ([facility])[address] [place] [address] Anion gap [Moles/Vol] 14 mmol/L High 3-13 [facility] Comment on above: Performed By: #### L AB103, LAB17, NIK439 ####U.[employer]. Revenue Officer: JORGE A MALDONADO ([id number])[facility] ([facility])[address] [place] [address] AST [Catalytic activity/Vol] 26 U/L Normal <34 [facility] Comment on above: Performed By: #### Russell AB103, LAB17, URM230 ####U.[employer]. Revenue Officer: JORGE A MALDONADO ([id number])[facility] ([facility])[address] [place] [address] Bilirubin [Mass/Vol] 1.6 mg/dL High <1.2 [facility] Comment on above: Performed By: #### L AB103, LAB17, EVV429 ####U.[employer]. Revenue Officer: JORGE A MALDONADO ([id number])[facility] ([facility])[address] [place] [address] Calcium [Mass/Vol] 9.4 mg/dL Normal 8.8-10.0 [facility] Comment on above: Performed By: #### L AB103, LAB17, NEZ130 ####U.[employer]. Revenue Officer: JORGE A MALDONADO ([id number])[facility] ([facility])[address] [place] [address] [place] Chloride [Moles/Vol] 106 mmol/L Normal 98-107 [facility] Comment on above: Performed By: #### L AB103, LAB17, TLA799 ####U.S. Revenue Officer: JORGE A MALDONADO ([id number])[facility] ([facility])[address] [place] [address] [place] CO2 [Moles/Vol] 21 mmol/L Low 23-31 [facility] Comment on above: Performed By: #### L AB103, LAB17, HIS499 ####U.S. Revenue Officer: JORGE A MALDONADO ([id number])[facility])[address] [place] [address] Creatinine [Mass/Vol] 1.78 mg/dL High 0.72-1.25 [facility] Comment on above: Performed By: #### L AB103, LAB17, VYG600 ####U.S. Revenue Officer: JORGE A MALDONADO ([id number])[facility])[address] [place] [address] GLOMERULAR FILTRATION RATE ML/MIN/1.73 SQ M.PREDICTED 36.9 mL/min/1.73m*2 Low >60.0 [facility] Comment on above: Result Comment: Calc ulation based on the Chronic Kidney Disease Epidemiology Collaboration (CKD-EPI) equation refit without adjustment for race Performed By: #### L AB103, LAB17, WPK052 ####U.S. Revenue Officer: JORGE A MALDONADO ([id number])[facility])[address] [place] [address] Glucose [Mass/Vol] 128 mg/dL High 82-115 [facility] Comment on above: Performed By: #### L AB103, LAB17, KEN320 ####U.S. Revenue Officer: JORGE A MALDONADO ([id number])[facility])[address] [place] [address] [place] Potassium [Moles/Vol] 3.6 mmol/L Normal 3.5-5.1 [facility] Comment on above: Result Comment: [facility] potassium values may be up to 0.5 mmol/L lower than serum values. Performed By: #### L AB103, LAB17, YAX264 ####U.[employer]. Revenue Officer: JORGE A MALDONADO ([id number])[facility])[address] [place] [address] Protein [Mass/Vol] 6.9 g/dL Normal 6.4-8.3 [facility] Comment on above: Performed By: #### L AB103, LAB17, MTL815 ####U.[employer]. Revenue Officer: JORGE A MALDONADO ([id number])[facility] ([facility])[address] [place] [address] Sodium [Moles/Vol] 141 mmol/L Normal 136-145 [facility] Comment on above: Performed By: #### L AB103, LAB17, [id number] ####U.[employer]. Revenue Officer: JORGE A MALDONADO ([id number])[facility] ([facility])[address] [place] [address] Urea nitrogen [Mass/Vol] 32 mg/dL High 9-23 [facility] Comment on above: Performed By: #### Russell AB103, LAB17, [id number] ####U.[employer]. Revenue Officer: JORGE A MALDONADO ([id number])[facility] ([facility])[address] [place] [address] Calcium.ionized [Moles/Vol]o n 01-30-2025 Calcium.ionized (Bld) [Moles/Vol] 4.3 mg/dL 4.30 - 5.20 mg/dL [facility] Interpretation and review of laboratory results Normal [facility] PH, IONIZED CALCIUM 7.39 7.31 - 7.46 [facility] Calcium.ionized (Bld) [Moles/Vol] 4.5 mg/dL 4.30 - 5.20 mg/dL [facility] Interpretation and review of laboratory results Normal [facility] PH, IONIZED CALCIUM 7.35 7.31 - 7.46 [facility] Comprehensive metabolic 1998 panelon 01-30-2025 Albumin [Mass/Vol] 3.5 g/dL 3.4 - 4.8 g/dL [facility] ALP [Catalytic activity/Vol] 103 U/L 40 - 150 U/L [facility] ALT [Catalytic activity/Vol] 12 U/L NINF - 40 U/L [facility] Anion gap [Moles/Vol] 14 mmol/L High 3 - 13 mmol/L [facility] AST [Catalytic activity/Vol] 27 U/L NINF - 34 U/L [facility] Bilirubin [Mass/Vol] 1.5 mg/dL High NINF - 1.2 mg/dL [facility] Calcium [Mass/Vol] 9.1 mg/dL 8.8 - 10. 0 mg/dL [facility] Chloride [Moles/Vol] 106 mmol/L 98 - 10 7 mmol/L [facility] CO2 [Moles/Vol] 21 mmol/L Low 23 - 31 mmol/L [facility] Creatinine [Mass/Vol] 1.95 mg/dL High 0.72 - 1.25 mg/dL [facility] GFR/1.73 sq M.predicted (S/P/Bld) [Vol rate/Area] 33.1 mL/min Low - PINF [facility] Comment on above: Calculation based on the Chronic Kidney Disease Epidemiology Collaboration (CKD-EPI) equation refit without adjustment for race Glucose [Mass/Vol] 144 mg/dL High 82 - 115 mg/dL [facility] Interpretation and review of laboratory results Abnormal [facility] Potassium [Moles/Vol] 3.6 mmol/L 3.5 - 5.1 mmol/L [facility] Comment on above: Plasma potassium erika ues may be up to 0.5 mmol/L lower than serum values. Protein [Mass/Vol] 6.7 g/dL 6.4 - 8.3 g/dL [facility] Sodium [Moles/Vol] 141 mmol/L 136 - 145 mmol/L [facility] Urea nitrogen [Mass/Vol] 32 mg/dL High 9 - 23 mg/d L [facility] Albumin [Mass/Vol] 3.6 g/dL 3.4 - 4.8 g/dL [facility] ALP [Catalytic activity/Vol] 105 U/L 40 - 150 U/L [facility] ALT [Catalytic activity/Vol] 13 U/L NINF - 40 U/L [facility] Anion gap [Moles/Vol] 14 mmol/L High 3 - 13 mmol/L [facility] AST [Catalytic activity/Vol] 26 U/L NINF - 34 U/L [facility] Bilirubin [Mass/Vol] 1.6 mg/dL High NINF - 1.2 mg/dL [facility] Calcium [Mass/Vol] 9.4 mg/dL 8.8 - 10. 0 mg/dL [facility] Chloride [Moles/Vol] 106 mmol/L 98 - 10 7 mmol/L [facility] CO2 [Moles/Vol] 21 mmol/L Low 23 - 31 mmol/L [facility] Creatinine [Mass/Vol] 1.78 mg/dL High 0.72 - 1.25 mg/dL [facility] GFR/1.73 sq M.predicted (S/P/Bld) [Vol rate/Area] 36.9 mL/min Low - PINF [facility] Comment on above: Calculation based on the Chronic Kidney Disease Epidemiology Collaboration (CKD-EPI) equation refit without adjustment for race Glucose [Mass/Vol] 128 mg/dL High 82 - 115 mg/dL [facility] Interpretation and review of laboratory results Abnormal [facility] Potassium [Moles/Vol] 3.6 mmol/L 3.5 - 5.1 mmol/L [facility] Comment on above: Plasma potassium erika ues may be up to 0.5 mmol/L lower than serum values. Protein [Mass/Vol] 6.9 g/dL 6.4 - 8.3 g/dL [facility] Sodium [Moles/Vol] 141 mmol/L 136 - 145 mmol/L [facility] Urea nitrogen [Mass/Vol] 32 mg/dL High 9 - 23 mg/d L [facility] Laboratory - Chemistry and C hemistry - challengeon 01-30-2025 Glucose [Mass/Vol] 145 mg/dL High 70 - 100 mg/dL [facility] Glucose [Mass/Vol] 156 mg/dL High 70 - 100 mg/dL [facility] Magnesium [Mass/Vol] 2 mg/dL 1.6 - 2 .6 mg/dL [facility] Magnesium [Mass/Vol] 2.1 mg/dL 1.6 - 2 .6 mg/dL [facility] Glucose [Mass/Vol] 119 mg/dL High 70 - 100 mg/dL [facility] Glucose [Mass/Vol] 92 mg/dL 70 - 100 mg/dL [facility] MAGNESIUMon 01-30-2025 Magnesium [Mass/Vol] 2.0 mg/dL Normal 1.6-2.6 [facility] Comment on above: Result Comment: MIO Klein COMMENTS: Higher values can be expected in females during menses. Performed By: #### L AB17, [id number], [id number] ####[employer] Revenue Officer: JORGE A MALDONADO ([id number])[facility] ([address] Magnesium [Mass/Vol] 2.1 mg/dL Normal 1.6-2.6 [facility] Comment on above: Result Comment: ORDE R COMMENTS: Higher values can be expected in females during menses. Performed By: #### L AB103, LAB17, [id number] ####U.[employer]. Revenue Officer: JORGE A MALDONADO ([id number])[facility] [place] [address] Magnesium [Mass/Vol]on 01-30 Higher values can be expected in females during menses. [facility] Higher values can be expected in females during menses. [facility] [email or web address] No Panel Informationon 01-30 Interpretation and review of laboratory results Abnormal [facility] [email or web address] Performed by: [address] [address] CLIA ID: [id number] [facility] Interpretation and review of laboratory results Abnormal [facility] Performed by: [address] [address] CLIA ID: [id number] [facility] Interpretation and review of laboratory results Normal [facility] Interpretation and review of laboratory results Normal [facility] Interpretation and review of laboratory results Abnormal [facility] Performed by: [address] [address] CLIA ID: [id number] [facility] Interpretation and review of laboratory results Normal [facility] Performed by: [address] [address] CLIA ID: [id number] [facility] PHOSPHORUSon 01-30-2025 Phosphate [Mass/Vol] 2.5 mg/dL Normal 2.3-4.7 [facility] Comment on above: Performed By: #### L AB17, EDH130, [id number] ####[employer]. Revenue Officer: JORGE A MALDONADO ([id number])[facility] [place] [address] Phosphate [Mass/Vol] 2.5 mg/dL Normal 2.3-4.7 [facility] Comment on above: Performed By: #### L AB103, LAB17, VHT586 ####[employer]. Revenue Officer: JORGE A MALDONADO ([id number])[facility] ([facility])[address] [place] [address] Phosphate [Moles/Vol]on 01-18 Phosphate [Mass/Vol] 2.5 mg/dL 2.3 - 4 .7 mg/dL [facility] Phosphate [Mass/Vol] 2.5 mg/dL 2.3 - 4 .7 mg/dL [facility] Progress Noteon 01-30-2025 Progress Note Nutrition Assessment [...] On: Kcal/kg Weight Used for Energy Requirements: [place] Weight for Energy Calculation (kg): 67 kg Total Energy Requirements (kcals/day): 25-28 kcal/kg = 5788-8624 kcal Weight Used for Protein Requirements: [place] Weight in Kg Used for Protein Requirements: [...] kg (193 lb 9.6 oz) (standing 01/28) [place] Body Weight (lbs) (Calculated): 148 lbs [place] Body Weight (Kg) (Calculated): 67 kg % [place] Body Weight (Calculated): 127.8 % BMI (kg/m2) [...] soon to determine Aleksandra Pak RD Contact: [employer] chat [place] *[id number] [facility] 30on 01-29-2025 30 Problem: Knowledge Deficit [...] Free from fall injury Outcome: Progressing Normal [facility] 30 Problem: Knowledge Deficit Goal: Patient/family/careg [...] Free from fall injury Outcome: Progressing Normal [facility] [facility] BASIC METABOLIC PANELon 01-18 Anion gap [Moles/Vol] 10 mmol/L Normal 3-13 [facility] Comment on above: Performed By: #### L AB113, [id number], LAB15 ####[employer]. Revenue Officer: JORGE A MALDONADO ([id number])[facility])[address] [place] [address] Calcium [Mass/Vol] 8.6 mg/dL Low 8.8-10.0 [facility] Comment on above: Performed By: #### L AB113, [id number], LAB15 ####U.S. Revenue Officer: JORGE A MALDONADO ([id number])[facility] ([facility])[address] [place] [address] Chloride [Moles/Vol] 109 mmol/L High 98-107 [facility] Comment on above: Performed By: #### L AB113, [id number], LAB15 ####U.S. Revenue Officer: JORGE A MALDONADO ([id number])[facility])[address] [place] [address] CO2 [Moles/Vol] 22 mmol/L Low 23-31 [facility] Comment on above: Performed By: #### L AB113, [id number], LAB15 ####U.S. Revenue Officer: JORGE A MALDONADO ([id number])[facility])[address] [place] [address] Creatinine [Mass/Vol] 1.84 mg/dL High 0.72-1.25 [facility] Comment on above: Performed By: #### L AB113, [id number], LAB15 ####U.[employer]. Revenue Officer: JORGE A MALDONADO ([id number])[facility])[address] [place] [address] GLOMERULAR FILTRATION RATE ML/MIN/1.73 SQ M.PREDICTED 35.5 mL/min/1.73m*2 Low >60.0 [facility] Comment on above: Result Comment: Calc ulation based on the Chronic Kidney Disease Epidemiology Collaboration (CKD-EPI) equation refit without adjustment for race Performed By: #### L AB113, [id number], LAB15 ####U.S. Revenue Officer: JORGE A MALDONADO ([id number])[facility])[address] [place] [address] Glucose [Mass/Vol] 74 mg/dL Low 82-115 [facility] Comment on above: Performed By: #### L AB113, [id number], LAB15 ####U.S. Revenue Officer: JORGE A MALDONADO ([id number])[facility])[address] [place] [address] Potassium [Moles/Vol] 2.8 mmol/L Low 3.5-5.1 [facility] Comment on above: Result Comment: [facility] potassium values may be up to 0.5 mmol/L lower than serum values. Performed By: #### L AB113, [id number], LAB15 ####U.S. Revenue Officer: JORGE A MALDONADO ([id number])[facility])[address] [place] [address] Sodium [Moles/Vol] 141 mmol/L Normal 136-145 [facility] Comment on above: Performed By: #### L AB113, [id number], LAB15 ####U.S. Revenue Officer: JORGE A MALDONADO ([id number])[facility])[address] [place] [address] Urea nitrogen [Mass/Vol] 36 mg/dL High 9-23 [facility] Comment on above: Performed By: #### L AB113, [id number], LAB15 ####U.S. Revenue Officer: JORGE A MALDONADO ([id number])[facility] ([facility])[address] [place] [address] Basic metabolic 1998 panelOr dered By: Sol Adams on 01-29-2025 Anion gap [Moles/Vol] 10 mmol/L 3 - 13 mmol/L [facility] Calcium [Mass/Vol] 8.6 mg/dL Low 8.8 - 10. 0 mg/dL [facility] Chloride [Moles/Vol] 109 mmol/L High 98 - 10 7 mmol/L [facility] CO2 [Moles/Vol] 22 mmol/L Low 23 - 31 mmol/L [facility] Creatinine [Mass/Vol] 1.84 mg/dL High 0.72 - 1.25 mg/dL [facility] GFR/1.73 sq M.predicted (S/P/Bld) [Vol rate/Area] 35.5 mL/min Low - PINF [facility] Comment on above: Calculation based on the Chronic Kidney Disease Epidemiology Collaboration (CKD-EPI) equation refit without adjustment for race Glucose [Mass/Vol] 74 mg/dL Low 82 - 115 mg/dL [facility] Interpretation and review of laboratory results Abnormal [facility] Potassium [Moles/Vol] 2.8 mmol/L Low 3.5 - 5.1 mmol/L [facility] Comment on above: Plasma potassium erika ues may be up to 0.5 mmol/L lower than serum values. Sodium [Moles/Vol] 141 mmol/L 136 - 145 mmol/L [facility] Urea nitrogen [Mass/Vol] 36 mg/dL High 9 - 23 mg/d L [facility] CALCIUM, IONIZEDon CALCIUM IONIZED 4.30 mg/dL Normal 4.30-5.20 [facility] Comment on above: Performed By: #### L AB54 ####U.S. Revenue Officer: JORGE A MALDONADO ([id number])[facility] ([facility])[address] [place] [address] PH, IONIZED CALCIUM 7.38 Normal 7.31-7.46 [facility] Comment on above: Performed By: #### L AB54 ####U.S. Revenue Officer: JORGE A MALDONADO ([id number])[facility])[address] [place] [address] CALCIUM IONIZED 4.20 mg/dL Low 4.30-5.20 [facility] Comment on above: Performed By: #### L AB54 ####U.S. Revenue Officer: JORGE A MALDONADO ([id number])[facility])[address] [place] [address] PH, IONIZED CALCIUM 7.38 Normal 7.31-7.46 [facility] Comment on above: Performed By: #### L AB54 ####U.S. Revenue Officer: JORGE A MALDONADO ([id number])[facility])[address] [place] [address] CBC (HEMOGRAM)on 01-29-2025 Erythrocyte distribution width (RBC) [Ratio] 19.6 % High 11.5-15.0 [facility] Comment on above: Performed By: #### L AB294 ####U.S. Revenue Officer: JORGE A MALDONADO ([id number])[address] Hematocrit (Bld) [Volume fraction] 46.3 % Normal 40.0-52.0 [facility] Comment on above: Performed By: #### L AB294 ####U.S. Revenue Officer: JORGE A MALDONADO ([id number])[address] Hemoglobin (Bld) [Mass/Vol] 15.1 g/dL Normal 13.0-18.0 [facility] Comment on above: Performed By: #### L AB294 ####U.S. Revenue Officer: JORGE A MALDONADO ([id number])[address] MCH (RBC) [Entitic mass] 28.7 pg Normal 26.0-34.0 [facility] Comment on above: Performed By: #### L AB294 ####U.S. Revenue Officer: JORGE A MALDONADO ([id number])[facility] ([facility])[address] [place] [address] MCHC 32.6 % Normal 30.5-36.0 [facility] Comment on above: Performed By: #### L AB294 ####U.S. Revenue Officer: JORGE A MALDONADO ([id number])[facility] ([facility])[address] [place] [address] MCV (RBC) [Entitic vol] 87.9 fL Normal 77.0-99.0 [facility] Comment on above: Performed By: #### L AB294 ####U.S. Revenue Officer: JORGE A MALDONADO ([id number])[facility])[address] [place] [address] Platelet mean volume (Bld) [Entitic vol] 10.3 fL Normal 9.0-12.7 [facility] Comment on above: Performed By: #### L AB294 ####U.S. Revenue Officer: JORGE A MALDONADO ([id number])[facility] ([facility])[address] [place] [address] Platelets (Bld) [#/Vol] 199 10*3/uL Normal 140-440 [facility] Comment on above: Performed By: #### L AB294 ####U.S. Revenue Officer: JORGE A MALDONADO ([id number])[facility])[address] [place] [address] RBC (Bld) [#/Vol] 5.27 10*6/uL Normal 4.40-5.90 [facility] Comment on above: Performed By: #### L AB294 ####U.S. Revenue Officer: JORGE A MALDONADO ([id number])[facility])[address] [place] [address] WBC (Bld) [#/Vol] 5.3 10*3/uL Normal 3.6-10.7 [facility] Comment on above: Performed By: #### L [id number] ####U.S. Revenue Officer: JORGE A MALDONADO ([id number])[facility] ([facility])[address] [place] [address] CBC W Auto Differential pane l (Bld)on 01-29-2025 Basophils (Bld) [#/Vol] 0.1 10*3/uL 0.0 - 0.2 10*3/uL [facility] Basophils/100 WBC (Bld) 1.5 % 0.0 - 2.0 % [facility] Eosinophils (Bld) [#/Vol] 0.2 10*3/uL 0.0 - 0.5 10*3/uL [facility] Eosinophils/100 WBC (Bld) 3.2 % 0.0 - 6.0 % [facility] Erythrocyte distribution width (RBC) [Ratio] 19 % High 11.5 - 15.0 % [facility] Hematocrit (Bld) [Volume fraction] 42.1 % 40.0 - 52.0 % [facility] Hemoglobin (Bld) [Mass/Vol] 13.7 g/dL 13.0 - 18.0 g/dL [facility] Immature granulocytes (Bld) [#/Vol] 0 10*3/uL NINF - 0.1 10*3/uL [facility] Immature granulocytes/100 WBC (Bld) 0.2 % 0.0 - 2.0 % [facility] Interpretation and review of laboratory results Abnormal [facility] Lymphocytes (Bld) [#/Vol] 1 10*3/uL 1.0 - 4.3 10*3/uL [facility] Lymphocytes/100 WBC (Bld) 20.6 % 15.0 - 45.0 % [facility] MCH (RBC) [Entitic mass] 28.5 pg 26. 0 - 34.0 pg [facility] MCHC (RBC) [Mass/Vol] 32.5 % 30.5 - 36.0 % [facility] MCV (RBC) [Entitic vol] 87.5 fL 77.0 - 99.0 fL [facility] Monocytes (Bld) [#/Vol] 0.4 10*3/uL 0.0 - 0.9 10*3/uL [facility] Monocytes/100 WBC (Bld) 8 % 5.0 - 13.0 % [facility] Neutrophils (Bld) [#/Vol] 3.2 10*3/uL 1.8 - 7.5 10*3/uL [facility] Neutrophils/100 WBC (Bld) 66.5 % 38.0 - 82.0 % [facility] Nucleated RBC/100 WBC (Bld) [Ratio] 0 % [facility] Platelet mean volume (Bld) [Entitic vol] 10.8 fL 9.0 - 12.7 fL [facility] Platelets (Bld) [#/Vol] 206 10*3/uL 140 - 440 10*3/uL [facility] RBC (Bld) [#/Vol] 4.81 10*6/uL 4.40 - 5.9 0 10*6/uL [facility] WBC (Bld) [#/Vol] 4.8 10*3/uL 3.6 - 10.7 10*3/uL [facility] CBC WITH AUTO DIFFERENTIALon 01-29-2025 Basophils (Bld) [#/Vol] 0.1 10*3/uL Normal 0.0-0.2 [facility] Comment on above: Performed By: #### L [id number] ####U.[employer]. Revenue Officer: JORGE A MALDONADO ([id number])[facility])[address] [place] [address] Basophils/100 WBC (Bld) 1.5 % Normal 0.0-2.0 [facility] Comment on above: Performed By: #### L [id number] ####U.S. Revenue Officer: JORGE A MALDONADO ([id number])[facility])[address] [place] [address] Eosinophils (Bld) [#/Vol] 0.2 10*3/uL Normal 0.0-0.5 [facility] Comment on above: Performed By: #### L [id number] ####U.S. Revenue Officer: JORGE A MALDONADO ([id number])[facility])[address] [place] [address] Eosinophils/100 WBC (Bld) 3.2 % Normal 0.0-6.0 [facility] Comment on above: Performed By: #### L [id number] ####U.S. Revenue Officer: JORGE A [id number])[facility])[address] [place] [address] Erythrocyte distribution width (RBC) [Ratio] 19.0 % High 11.5-15.0 [facility] Comment on above: Performed By: #### L [id number] ####U.S. Revenue Officer: JORGE A MALDONADO ([id number])[facility])[address] [place] [address] Hematocrit (Bld) [Volume fraction] 42.1 % Normal 40.0-52.0 [facility] Comment on above: Performed By: #### L [id number] ####U.S. Revenue Officer: JORGE A MALDONADO ([id number])[facility])[address] [place] [address] Hemoglobin (Bld) [Mass/Vol] 13.7 g/dL Normal 13.0-18.0 [facility] Comment on above: Performed By: #### L [id number] ####U.S. Revenue Officer: JORGE A MALDONADO ([id number])[facility])[address] [place] [address] IMMATURE GRANS % 0.2 % Normal 0.0-2.0 [facility] Comment on above: Performed By: #### L [id number] ####U.S. Revenue Officer: JORGE A MALDONADO ([id number])[facility])[address] [place] [address] IMMATURE GRANS ABSOLUTE 0.0 10*3/uL Normal <0.1 [facility] Comment on above: Performed By: #### L [id number] ####U.S. Revenue Officer: JORGE A MALDONADO ([id number])[facility])[address] [place] [address] Lymphocytes (Bld) [#/Vol] 1.0 10*3/uL Normal 1.0-4.3 [facility] Comment on above: Performed By: #### L [id number] ####U.S. Revenue Officer: JORGE A MALDONADO ([id number])[facility])[address] [place] [address] Lymphocytes/100 WBC (Bld) 20.6 % Normal 15.0-45.0 [facility] Comment on above: Performed By: #### L [id number] ####U.S. Revenue Officer: JORGE A MALDONADO ([id number])[facility])[address] [place] [address] MCH (RBC) [Entitic mass] 28.5 pg Normal 26.0-34.0 [facility] Comment on above: Performed By: #### L [id number] ####U.S. Revenue Officer: JORGE A MALDONADO ([id number])[facility])[address] [place] [address] MCHC 32.5 % Normal 30.5-36.0 [facility] Comment on above: Performed By: #### L [id number] ####U.S. Revenue Officer: JORGE A MALDONADO ([id number])[address] MCV (RBC) [Entitic vol] 87.5 fL Normal 77.0-99.0 [facility] Comment on above: Performed By: #### L [id number] ####U.S. Revenue Officer: JORGE A MALDONADO ([id number])[address] Monocytes (Bld) [#/Vol] 0.4 10*3/uL Normal 0.0-0.9 [facility] Comment on above: Performed By: #### L [id number] ####U.S. Revenue Officer: JORGE A MALDONADO ([id number])[address] Monocytes/100 WBC (Bld) 8.0 % Normal 5.0-13.0 [facility] Comment on above: Performed By: #### L [id number] ####U.S. Revenue Officer: JORGE A MALDONADO ([id number])[address] NEUTROPHILS ABSOLUTE 3.2 10*3/uL Normal 1.8-7.5 [facility] Comment on above: Performed By: #### L [id number] ####U.S. Revenue Officer: JORGE A MALDONADO ([id number])[facility] [place] [address] Neutrophils/100 WBC (Bld) 66.5 % Normal 38.0-82.0 [facility] Comment on above: Performed By: #### L [id number] ####U.S. Revenue Officer: JORGE A MALDONADO ([id number])[facility] ([facility])[address] [place] [address] NRBC 0.0 /100 WBCs Normal 0.0-2.0 [facility] Comment on above: Performed By: #### L [id number] ####U.S. Revenue Officer: JORGE A MALDONADO ([id number])[facility] ([facility])[address] [place] [address] Platelet mean volume (Bld) [Entitic vol] 10.8 fL Normal 9.0-12.7 [facility] Comment on above: Performed By: #### L [id number] ####U.S. Revenue Officer: JORGE A MALDONADO ([id number])[facility] ([facility])[address] [place] [address] Platelets (Bld) [#/Vol] 206 10*3/uL Normal 140-440 [facility] Comment on above: Performed By: #### L [id number] ####U.S. Revenue Officer: JORGE A MALDONADO ([id number])[facility] ([facility])[address] [place] [address] RBC (Bld) [#/Vol] 4.81 10*6/uL Normal 4.40-5.90 [facility] Comment on above: Performed By: #### L [id number] ####U.[employer]. Revenue Officer: JORGE A MALDONADO ([id number])[facility] ([facility])[address] [place] [address] [place] WBC (Bld) [#/Vol] 4.8 10*3/uL Normal 3.6-10.7 [facility] Comment on above: Performed By: #### L [id number] ####U.S. Revenue Officer: JORGE A MALDONADO ([id number])[facility] ([facility])[address] [place] [address] CBC panel Auto (Bld)on 01-29 Erythrocyte distribution width (RBC) [Ratio] 19.6 % High 11.5 - 15.0 % [facility] Hematocrit (Bld) [Volume fraction] 46.3 % 40.0 - 52.0 % [facility] Hemoglobin (Bld) [Mass/Vol] 15.1 g/dL 13.0 - 18.0 g/dL [facility] Interpretation and review of laboratory results Abnormal [facility] MCH (RBC) [Entitic mass] 28.7 pg 26. 0 - 34.0 pg [facility] MCHC (RBC) [Mass/Vol] 32.6 % 30.5 - 36.0 % [facility] MCV (RBC) [Entitic vol] 87.9 fL 77.0 - 99.0 fL [facility] Platelet mean volume (Bld) [Entitic vol] 10.3 fL 9.0 - 12.7 fL [facility] Platelets (Bld) [#/Vol] 199 10*3/uL 140 - 440 10*3/uL [facility] RBC (Bld) [#/Vol] 5.27 10*6/uL 4.40 - 5.9 0 10*6/uL [facility] WBC (Bld) [#/Vol] 5.3 10*3/uL 3.6 - 10.7 10*3/uL [facility] COMPREHENSIVE METABOLIC PANE Greg 01-29-2025 Albumin [Mass/Vol] 3.6 g/dL Normal 3.4-4.8 [facility] Comment on above: Performed By: #### L AB113, LAB17, [id number] ####[employer]. Revenue Officer: JORGE A MALDONADO ([id number])[facility] [place] [address] ALP [Catalytic activity/Vol] 118 U/L Normal 40-150 [facility] Comment on above: Performed By: #### L AB113, LAB17, [id number] ####U.S. Revenue Officer: JORGE A MALDONADO ([id number])[facility] [place] [address] ALT [Catalytic activity/Vol] 13 U/L Normal <40 [facility] Comment on above: Performed By: #### L AB113, LAB17, ZAR112 ####U.S. Revenue Officer: JORGE A MALDONADO ([id number])[facility] ([facility])[address] [place] [address] Anion gap [Moles/Vol] 11 mmol/L Normal 3-13 [facility] Comment on above: Performed By: #### L ABNakul, LAB17, [id number] ####U.[employer]. Revenue Officer: JORGE A MALDONADO ([id number])[facility] ([facility])[address] [place] [address] AST [Catalytic activity/Vol] 27 U/L Normal <34 [facility] Comment on above: Performed By: #### Russell ABNakul, LAB17, [id number] ####U.S. Revenue Officer: JORGE A MALDONADO ([id number])[facility] ([facility])[address] [place] [address] Bilirubin [Mass/Vol] 1.4 mg/dL High <1.2 [facility] Comment on above: Performed By: #### Russell ABNakul, LAB17, [id number] ####U.[employer]. Revenue Officer: JORGE A MALDONADO ([id number])[facility] ([facility])[address] [place] [address] Calcium [Mass/Vol] 9.6 mg/dL Normal 8.8-10.0 [facility] Comment on above: Performed By: #### Russell ABNakul, LAB17, [id number] ####[employer]. Revenue Officer: JORGE A MALDONADO ([id number])[facility] ([facility])[address] [place] [address] [place] Chloride [Moles/Vol] 106 mmol/L Normal 98-107 [facility] Comment on above: Performed By: #### L AB113, LAB17, [id number] ####U.S. Revenue Officer: JORGE A MALDONADO ([id number])[facility])[address] [place] [address] [place] CO2 [Moles/Vol] 24 mmol/L Normal 23-31 [facility] Comment on above: Performed By: #### L AB113, LAB17, [id number] ####U.[employer]. Revenue Officer: JORGE A MALDONADO ([id number])[facility])[address] [place] [address] Creatinine [Mass/Vol] 2.08 mg/dL High 0.72-1.25 [facility] Comment on above: Performed By: #### L AB113, LAB17, [id number] ####U.S. Revenue Officer: JORGE A MALDONADO ([id number])[facility])[address] [place] [address] GLOMERULAR FILTRATION RATE ML/MIN/1.73 SQ M.PREDICTED 30.6 mL/min/1.73m*2 Low >60.0 [facility] Comment on above: Result Comment: Calc ulation based on the Chronic Kidney Disease Epidemiology Collaboration (CKD-EPI) equation refit without adjustment for race Performed By: #### L AB113, LAB17, [id number] ####U.[employer]. Revenue Officer: JORGE A MALDONADO ([id number])[facility])[address] [place] [address] Glucose [Mass/Vol] 107 mg/dL Normal 82-115 [facility] Comment on above: Performed By: #### L AB113, LAB17, [id number] ####[employer]. Revenue Officer: JORGE A MALDONADO ([id number])[address] Potassium [Moles/Vol] 3.4 mmol/L Low 3.5-5.1 [facility] Comment on above: Result Comment: [facility] potassium values may be up to 0.5 mmol/L lower than serum values. Performed By: #### L AB113, LAB17, [id number] ####U.[employer]. Revenue Officer: JORGE A MALDONADO ([id number])[facility])[address] [place] [address] Protein [Mass/Vol] 7.1 g/dL Normal 6.4-8.3 [facility] Comment on above: Performed By: #### L AB113, LAB17, [id number] ####U.S. Revenue Officer: JORGE A MALDONADO ([id number])[place] [address] [place] Sodium [Moles/Vol] 141 mmol/L Normal 136-145 [facility] Comment on above: Performed By: #### L AB113, LAB17, [id number] ####U.[employer]. Revenue Officer: JORGE A MALDONADO ([id number])[facility] ([facility])[address] [place] [address] Urea nitrogen [Mass/Vol] 36 mg/dL High 9-23 [facility] Comment on above: Performed By: #### L AB113, LAB17, [id number] ####[employer]. Revenue Officer: JORGE A MALDONADO ([id number])[facility] ([facility])[address] [place] [address] Calcium.ionized [Moles/Vol]o n 01-29-2025 Calcium.ionized (Bld) [Moles/Vol] 4.3 mg/dL 4.30 - 5.20 mg/dL [facility] Interpretation and review of laboratory results Normal [facility] PH, IONIZED CALCIUM 7.38 7.31 - 7.46 [facility] Calcium.ionized [Moles/Vol]O rdered By: Katie Huizar on 01-29-2025 Calcium.ionized (Bld) [Moles/Vol] 4.2 mg/dL Low 4.30 - 5.20 mg/dL [facility] Interpretation and review of laboratory results Abnormal [facility] PH, IONIZED CALCIUM 7.38 7.31 - 7.46 [facility] Comprehensive metabolic 1998 panelon 01-29-2025 Albumin [Mass/Vol] 3.6 g/dL 3.4 - 4.8 g/dL [facility] ALP [Catalytic activity/Vol] 118 U/L 40 - 150 U/L [facility] ALT [Catalytic activity/Vol] 13 U/L NINF - 40 U/L [facility] Anion gap [Moles/Vol] 11 mmol/L 3 - 13 mmol/L [facility] AST [Catalytic activity/Vol] 27 U/L NINF - 34 U/L [facility] Bilirubin [Mass/Vol] 1.4 mg/dL High NINF - 1.2 mg/dL [facility] Calcium [Mass/Vol] 9.6 mg/dL 8.8 - 10. 0 mg/dL [facility] Chloride [Moles/Vol] 106 mmol/L 98 - 10 7 mmol/L [facility] [email or web address] CO2 [Moles/Vol] 24 mmol/L 23 - 31 mmol/L [facility] [email or web address] Creatinine [Mass/Vol] 2.08 mg/dL High 0.72 - 1.25 mg/dL [facility] GFR/1.73 sq M.predicted (S/P/Bld) [Vol rate/Area] 30.6 mL/min Low - PINF [facility] Comment on above: Calculation based on the Chronic Kidney Disease Epidemiology Collaboration (CKD-EPI) equation refit without adjustment for race Glucose [Mass/Vol] 107 mg/dL 82 - 115 mg/dL [facility] Interpretation and review of laboratory results Abnormal [facility] Potassium [Moles/Vol] 3.4 mmol/L Low 3.5 - 5.1 mmol/L [facility] Comment on above: Plasma potassium erika ues may be up to 0.5 mmol/L lower than serum values. Protein [Mass/Vol] 7.1 g/dL 6.4 - 8.3 g/dL [facility] [email or web address] Sodium [Moles/Vol] 141 mmol/L 136 - 145 mmol/L [facility] [email or web address] Urea nitrogen [Mass/Vol] 36 mg/dL High 9 - 23 mg/d L [facility] [email or web address] Consulton 01-29-2025 Consult Attestation signed by Donovan [...] ejection fraction, hypertension who who presented to [facility] with a chief complaint of shortness of breath and volume overload. He was seen by Dr. Lund yesterday and transferred here to [facility] due to lack of beds. IV diuresis [...] Hoffman MD, PhD Advanced Heart Failure Cardiology [facility]. [facility] [place] 1:12 PM 01/29/25 [facility] Cardiology /Electrophysiology Consult Note Reason for Consult/Chief Complaint: Dyspnea Referring provider: Dr. Hall Established heel pricker: Dr. Roth History of Present Illness: Megan Nascimento is a 84 y.o. 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 Initially presented at [facility] [facility] but transferred here for further management. 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 Normal [facility] Laboratory - Chemistry and C hemistry - challengeon 01-29-2025 Glucose [Mass/Vol] 138 mg/dL High 70 - 100 mg/dL [facility] Magnesium [Mass/Vol] 1.7 mg/dL 1.6 - 2 .6 mg/dL [facility] Glucose [Mass/Vol] 106 mg/dL High 70 - 100 mg/dL [facility] Glucose [Mass/Vol] 114 mg/dL High 70 - 100 mg/dL [facility] Magnesium [Mass/Vol] 1.7 mg/dL 1.6 - 2 .6 mg/dL [facility] Glucose [Mass/Vol] 139 mg/dL High 70 - 100 mg/dL [facility] MAGNESIUMon 01-29-2025 Magnesium [Mass/Vol] 1.7 mg/dL Normal 1.6-2.6 [facility] Comment on above: Result Comment: MIO Klein COMMENTS: Higher values can be expected in females during menses. Performed By: #### L AB113, LAB17, [id number] ####U.S. Revenue Officer: JORGE A MALDONADO ([id number])[address] Magnesium [Mass/Vol] 1.7 mg/dL Normal 1.6-2.6 [facility] Comment on above: Result Comment: MIO R COMMENTS: Higher values can be expected in females during menses. Performed By: #### L AB113, [id number], LAB15 ####U.S. Revenue Officer: JORGE A MALDONADO ([id number])[facility] ([facility])[address] [place] [address] Magnesium [Mass/Vol]on 01-29 Higher values can be expected in females during menses. [facility] Interpretation and review of laboratory results Normal [facility] Higher values can be expected in females during menses. [facility] No Panel Informationon 01-29 Interpretation and review of laboratory results Abnormal [facility] Performed by: [facility], [address] [place] [address] CLIA ID: [id number] [facility] Interpretation and review of laboratory results Normal [facility] Interpretation and review of laboratory results Abnormal [facility] Performed by: [facility], [address] [place] [address] CLIA ID: [id number] [facility] Interpretation and review of laboratory results Abnormal [facility] Performed by: [facility], [address] [place] [address] CLIA ID: [id number] [facility] Interpretation and review of laboratory results Abnormal [facility] Performed by: [facility], [address] [place] [address] CLIA ID: [id number] [facility] PHOSPHORUSon 01-29-2025 Phosphate [Mass/Vol] 2.4 mg/dL Normal 2.3-4.7 [facility] Comment on above: Performed By: #### L AB113, LAB17, [id number] ####U.S. Revenue Officer: JORGE A MALDONADO ([id number])[facility] ([facility])[address] [place] [address] [place] Phosphate [Mass/Vol] 2.7 mg/dL Normal 2.3-4.7 [facility] Comment on above: Performed By: #### L AB113, [id number], LAB15 ####U.S. Revenue Officer: JORGE A MALDONADO ([id number])[facility] ([facility])[address] [place] [address] [place] Phosphate [Moles/Vol]on 01-18 Phosphate [Mass/Vol] 2.4 mg/dL 2.3 - 4 .7 mg/dL [facility] Interpretation and review of laboratory results Normal [facility] Phosphate [Mass/Vol] 2.7 mg/dL 2.3 - 4 .7 mg/dL [facility] 36on 01-28-2025 36 ----- Message from Ralph Roth MD sent at 01/26/2025 5:16 PM EDT ----- Please call Friday for update, thank you Normal [facility] BASIC METABOLIC PANELon 01-18 Anion gap [Moles/Vol] 14 mmol/L High 3-13 [facility] Comment on above: Performed By: #### L [id number], LAB15, [id number] ####U.S. Revenue Officer: DIGNA MORALES ([id number])[facility] [place] ([facility])[address] Calcium [Mass/Vol] 8.7 mg/dL Low 8.8-10.0 [facility] Comment on above: Performed By: #### L [id number], LAB15, [id number] ####U.S. Revenue Officer: DIGNA MORALES ([id number])[facility] [place] ([facility])[address] Chloride [Moles/Vol] 106 mmol/L Normal 98-107 [facility] Comment on above: Performed By: #### Russell [id number], LAB15, [id number] ####U.S. Revenue Officer: DIGNA MORALES ([id number])[facility] [place] ([facility])[address] CO2 [Moles/Vol] 21 mmol/L Low 23-31 [facility] Comment on above: Performed By: #### Russell [id number], LAB15, [id number] ####U.S. Revenue Officer: DIGNA MORALES ([id number])[facility] [place] ([facility])[address] Creatinine [Mass/Vol] 2.37 mg/dL High 0.72-1.25 [facility] Comment on above: Performed By: #### L [id number], LAB15, [id number] ####U.S. Revenue Officer: DIGNA MORALES ([id number])[facility] [place] ([facility])[address] [place] [address] [place] GLOMERULAR FILTRATION RATE ML/MIN/1.73 SQ M.PREDICTED 26.2 mL/min/1.73m*2 Low >60.0 [facility] Comment on above: Result Comment: Calc ulation based on the Chronic Kidney Disease Epidemiology Collaboration (CKD-EPI) equation refit without adjustment for race ORDER COMMENTS: Slightly Hemolyzed Performed By: #### L [id number], LAB15, [id number] ####U.S. Revenue Officer: DIGNA MORALES ([id number])[facility] Glucose [Mass/Vol] 79 mg/dL Low 82-115 [facility] Comment on above: Performed By: #### L [id number], LAB15, [id number] ####U.S. Revenue Officer: DIGNA MORALES ([id number])[facility] ([facility])[address] [place] [address] Potassium [Moles/Vol] 4.2 mmol/L Normal 3.5-5.1 [facility] Comment on above: Result Comment: TC Significant interference from hemolysis. Result integrity compromised. Interpret with caution. Performed By: #### L [id number], LAB15, [id number] ####U.S. Revenue Officer: DIGNA MORALES ([id number])[facility] ([facility])[address] [place] [address] Sodium [Moles/Vol] 141 mmol/L Normal 136-145 [facility] Comment on above: Performed By: #### L [id number], LAB15, [id number] ####U.S. Revenue Officer: DIGNA MORALES ([id number])[facility])[address] Urea nitrogen [Mass/Vol] 40 mg/dL High 9-23 [facility] Comment on above: Performed By: #### L [id number], LAB15, [id number] ####U.S. Revenue Officer: DIGNA MORALES ([id number])[facility] ([facility])[address] Basic metabolic 1998 panelon 01-28-2025 Anion gap [Moles/Vol] 14 mmol/L High 3 - 13 mmol/L [facility] Calcium [Mass/Vol] 8.7 mg/dL Low 8.8 - 10. 0 mg/dL [facility] Chloride [Moles/Vol] 106 mmol/L 98 - 10 7 mmol/L [facility] CO2 [Moles/Vol] 21 mmol/L Low 23 - 31 mmol/L [facility] Creatinine [Mass/Vol] 2.37 mg/dL High 0.72 - 1.25 mg/dL [facility] GFR/1.73 sq M.predicted (S/P/Bld) [Vol rate/Area] 26.2 mL/min Low - PINF [facility] Comment on above: Calculation based on the Chronic Kidney Disease Epidemiology Collaboration (CKD-EPI) equation refit without adjustment for race Glucose [Mass/Vol] 79 mg/dL Low 82 - 115 mg/dL [facility] Interpretation and review of laboratory results Abnormal [facility] Potassium [Moles/Vol] 4.2 mmol/L 3.5 - 5.1 mmol/L [facility] Comment on above: TC Significant interference from hemolysis. Result integrity compromised. Interpret with caution. Sodium [Moles/Vol] 141 mmol/L 136 - 145 mmol/L [facility] Urea nitrogen [Mass/Vol] 40 mg/dL High 9 - 23 mg/d L [facility] Slightly Hemolyzed [facility] CBC W Auto Differential pane l (Bld)on 01-28-2025 Basophils (Bld) [#/Vol] 0.1 10*3/uL 0.0 - 0.2 10*3/uL [facility] Basophils/100 WBC (Bld) 1.7 % 0.0 - 2.0 % [facility] Eosinophils (Bld) [#/Vol] 0.2 10*3/uL 0.0 - 0.5 10*3/uL [facility] Eosinophils/100 WBC (Bld) 2.9 % 0.0 - 6.0 % [facility] Erythrocyte distribution width (RBC) [Ratio] 19.5 % High 11.5 - 15.0 % [facility] Hematocrit (Bld) [Volume fraction] 46 % 40.0 - 52.0 % [facility] Hemoglobin (Bld) [Mass/Vol] 15.2 g/dL 13.0 - 18.0 g/dL [facility] Immature granulocytes (Bld) [#/Vol] 0 10*3/uL NINF - 0.1 10*3/uL [facility] [email or web address] Immature granulocytes/100 WBC (Bld) 0.3 % 0.0 - 2.0 % [facility] Interpretation and review of laboratory results Abnormal [facility] Lymphocytes (Bld) [#/Vol] 1.3 10*3/uL 1.0 - 4.3 10*3/uL [facility] Lymphocytes/100 WBC (Bld) 22.5 % 15.0 - 45.0 % [facility] MCH (RBC) [Entitic mass] 28.8 pg 26. 0 - 34.0 pg [facility] MCHC (RBC) [Mass/Vol] 33 % 30.5 - 36.0 % [facility] MCV (RBC) [Entitic vol] 87.3 fL 77.0 - 99.0 fL [facility] Monocytes (Bld) [#/Vol] 0.5 10*3/uL 0.0 - 0.9 10*3/uL [facility] Monocytes/100 WBC (Bld) 8.7 % 5.0 - 13.0 % [facility] Neutrophils (Bld) [#/Vol] 3.8 10*3/uL 1.8 - 7.5 10*3/uL [facility] Neutrophils/100 WBC (Bld) 63.9 % 38.0 - 82.0 % [facility] Nucleated RBC/100 WBC (Bld) [Ratio] 0 % [facility] Platelet mean volume (Bld) [Entitic vol] 10.4 fL 9.0 - 12.7 fL [facility] Platelets (Bld) [#/Vol] 230 10*3/uL 140 - 440 10*3/uL [facility] RBC (Bld) [#/Vol] 5.27 10*6/uL 4.40 - 5.9 0 10*6/uL [facility] WBC (Bld) [#/Vol] 5.9 10*3/uL 3.6 - 10.7 10*3/uL [facility] CBC WITH AUTO DIFFERENTIALon 01-28-2025 Basophils (Bld) [#/Vol] 0.1 10*3/uL Normal 0.0-0.2 [facility] Comment on above: Performed By: #### L [id number] ####U.S. Revenue Officer: DIGNA ROJASREX ([id number])[facility] [place] ([facility])[address] Basophils/100 WBC (Bld) 1.7 % Normal 0.0-2.0 [facility] Comment on above: Performed By: #### L [id number] ####U.S. Revenue Officer: DIGNA ROJASREX ([id number])[facility] [place] ([facility])[address] Eosinophils (Bld) [#/Vol] 0.2 10*3/uL Normal 0.0-0.5 [facility] Comment on above: Performed By: #### L [id number] ####U.S. Revenue Officer: DIGNA ARANAILYA ([id number])[facility] [place] ([facility])[address] Eosinophils/100 WBC (Bld) 2.9 % Normal 0.0-6.0 [facility] Comment on above: Performed By: #### L [id number] ####U.S. Revenue Officer: DIGNA ARANAILYA ([id number])[facility] [place] ([facility])[address] Erythrocyte distribution width (RBC) [Ratio] 19.5 % High 11.5-15.0 [facility] Comment on above: Performed By: #### L [id number] ####U.S. Revenue Officer: DIGNA MORALES ([id number])[facility] [place] ([facility])[address] Hematocrit (Bld) [Volume fraction] 46.0 % Normal 40.0-52.0 [facility] Comment on above: Performed By: #### L [id number] ####U.S. Revenue Officer: DIGNA ROJASREX ([id number])[facility] [place] ([facility])[address] Hemoglobin (Bld) [Mass/Vol] 15.2 g/dL Normal 13.0-18.0 [facility] Comment on above: Performed By: #### L [id number] ####U.S. Revenue Officer: DIGNA MORALES ([id number])[facility] ([facility])[address] IMMATURE GRANS % 0.3 % Normal 0.0-2.0 [facility] Comment on above: Performed By: #### L [id number] ####U.S. Revenue Officer: DIGNA MORALES ([id number])[facility] ([facility])[address] IMMATURE GRANS ABSOLUTE 0.0 10*3/uL Normal <0.1 [facility] Comment on above: Performed By: #### L [id number] ####U.S. Revenue Officer: DIGNA MORALES ([id number])[facility] [place] ([facility])[address] [place] [address] Lymphocytes (Bld) [#/Vol] 1.3 10*3/uL Normal 1.0-4.3 [facility] Comment on above: Performed By: #### L [id number] ####U.S. Revenue Officer: DIGNA MORALES ([id number])[facility] ([facility])[address] [place] [address] Lymphocytes/100 WBC (Bld) 22.5 % Normal 15.0-45.0 [facility] Comment on above: Performed By: #### L [id number] ####U.S. Revenue Officer: DIGNA MORALES ([id number])[facility] ([facility])[address] [place] [address] MCH (RBC) [Entitic mass] 28.8 pg Normal 26.0-34.0 [facility] Comment on above: Performed By: #### L [id number] ####U.S. Revenue Officer: DIGNA MORALES ([id number])[facility] ([facility])[address] MCHC 33.0 % Normal 30.5-36.0 [facility] Comment on above: Performed By: #### L [id number] ####U.S. Revenue Officer: DIGNA MORALES ([id number])[facility] [place] ([facility])[address] MCV (RBC) [Entitic vol] 87.3 fL Normal 77.0-99.0 [facility] Comment on above: Performed By: #### L [id number] ####U.S. Revenue Officer: DIGNA MORALES ([id number])[facility] [place] ([facility])[address] Monocytes (Bld) [#/Vol] 0.5 10*3/uL Normal 0.0-0.9 [facility] Comment on above: Performed By: #### L [id number] ####U.S. Revenue Officer: DIGNA MORALES ([id number])[facility] [place] ([facility])[address] Monocytes/100 WBC (Bld) 8.7 % Normal 5.0-13.0 [facility] Comment on above: Performed By: #### L [id number] ####U.S. Revenue Officer: DIGNA MORALES ([id number])[facility] [place] ([facility])[address] NEUTROPHILS ABSOLUTE 3.8 10*3/uL Normal 1.8-7.5 [facility] Comment on above: Performed By: #### L [id number] ####U.S. Revenue Officer: DIGNA MORALES ([id number])[facility] [place] ([facility])[address] Neutrophils/100 WBC (Bld) 63.9 % Normal 38.0-82.0 [facility] Comment on above: Performed By: #### L [id number] ####U.S. Revenue Officer: DIGNA MORALES ([id number])[facility] [place] ([facility])[address] NRBC 0.0 /100 WBCs Normal 0.0-2.0 [facility] Comment on above: Performed By: #### L [id number] ####U.S. Revenue Officer: DIGNA MORALES ([id number])[facility] [place] ([facility])[address] Platelet mean volume (Bld) [Entitic vol] 10.4 fL Normal 9.0-12.7 [facility] Comment on above: Performed By: #### L [id number] ####U.S. Revenue Officer: DIGNA MORALES ([id number])[facility] ([facility])[address] Platelets (Bld) [#/Vol] 230 10*3/uL Normal 140-440 [facility] Comment on above: Performed By: #### L [id number] ####U.S. Revenue Officer: DIGNA MORALES ([id number])[facility] ([facility])[address] RBC (Bld) [#/Vol] 5.27 10*6/uL Normal 4.40-5.90 [facility] Comment on above: Performed By: #### L [id number] ####U.S. Revenue Officer: DIGNA MORALES ([id number])[facility] ([facility])[address] WBC (Bld) [#/Vol] 5.9 10*3/uL Normal 3.6-10.7 [facility] Comment on above: Performed By: #### L [id number] ####U.S. Revenue Officer: DIGNA MORALES ([id number])[facility] ([facility])[address] ECG 12-LEADon 01-28-2025 ECG 12-LEAD IMPRESSION: Ventricular-paced rhythm No further analysis attempted due to paced rhythm Electronically Signed On 01-28-2025 17:24:48 EDT by Eduardo Feliciano [facility] ED Nursing Noteon 01-28-2025 ED Nursing Note Report given to Amos Crooks for transfer to [facility] ED Nursing Note Report called to Ca Mojica RN Normal [facility] ED Nursing Note 250 cc of urine empted this am, pt wheeled to restroom, voided and stooled. Normal [facility] ED Nursing Note No cardiac monitoring available at this time. Provider aware Normal [facility] ED Provider Noteon ED Provider Note [...] at rest. Denies chest pain. Seen at heel pricker office yesterday and was noted to be [...] 1.3 Mon (more content not included)... Normal [facility] HIGH SENSITIVITY TROPONIN, S ERIAL BASELINEon 01-28-2025 TROPONIN HS SERIAL BASELINE 32 ng/L Normal <=35 [facility] Comment on above: Result Comment: In i ndividuals presenting with symptoms > 2h, a baseline troponin <= 5 ng/L suggests acute cardiac injury is unlikely and further serial testing is generally not indicated. Performed By: #### L [id number], LAB15, [id number] ####U.S. Revenue Officer: DIGNA MORALES ([id number])[facility] [place] ([facility])[address] [place] [address] Laboratory - Chemistry and C hemistry - challengeon 01-28-2025 Glucose [Mass/Vol] 167 mg/dL High 70 - 100 mg/dL [facility] [email or web address] Glucose [Mass/Vol] 113 mg/dL High 70 - 100 mg/dL [facility] [email or web address] Glucose [Mass/Vol] 89 mg/dL 70 - 100 mg/dL [facility] [email or web address] Glucose [Mass/Vol] 74 mg/dL 70 - 100 mg/dL [facility] [email or web address] Glucose [Mass/Vol] 124 mg/dL High 70 - 100 mg/dL [facility] [email or web address] NT PRO BNPon 01-28-2025 Natriuretic peptide B (Bld) [Mass/Vol] 57236 pg/mL High <450 [facility] Comment on above: Performed By: #### L [id number], LAB15, [id number] ####U.S. Revenue Officer: DGINA MORALES ([id number])[facility] ([facility])[address] [place] [address] [place] Natriuretic peptide B [Mass/ Vol]on 01-28-2025 Interpretation and review of laboratory results Abnormal [facility] Natriuretic peptide B (Bld) [Mass/Vol] 82157 pg/mL High NINF - 450 pg/mL [facility] No Panel Informationon 01-28 Interpretation and review of laboratory results Abnormal [facility] Performed by: [address] [address] CLIA ID: [id number] [facility] Interpretation and review of laboratory results Abnormal [facility] Performed by: [address] [address] CLIA ID: [id number] [facility] Ventricular-paced rhythm No further analysis attempted due to paced rhythm Electronically Signed On 01-28-2025 17:24:48 EDT by Eduardo Feliciano CV Eduardo Drake MD - 01/28/2025 IMPRESSION: Ventricular-paced rhythm No further analysis attempted due to paced rhythm Electronically Signed On 01-28-2025 17:24:48 EDT by Eduardo Feliciano [facility] Interpretation and review of laboratory results Normal [facility] Performed by: Tutu Romeo [address] [place] [address] CLIA ID: [id number] [facility] Interpretation and review of laboratory results Normal [facility] Performed by: Tutu Romeo [address] [place] [address] CLIA ID: [id number] [facility] Interpretation and review of laboratory results Abnormal [facility] Performed by: Tutu Romeo [address] [place] [address] CLIA ID: [id number] [facility] Interpretation and review of laboratory results Normal [facility] Troponin HS Serial Baseline 32 ng/L NINF - 35 ng/L [employer] Comment on above: In individuals prese nting with symptoms > 2h, a baseline troponin <= 5 ng/L suggests acute cardiac injury is unlikely and further serial testing is generally not indicated. [facility] No Panel InformationOrdered By: Eduardo Feliciano on 01-28-2025 P [place] 55 degrees [employer] Work Phone: [place] Interval 264 ms [employer] Work Phone: QRS [place] 223 degrees [employer] Work Phone: QRSD Interval 144 ms [employer] Work Phone: QT Interval 469 ms [employer] Work Phone: QTC Interval 507 ms [employer] Work Phone: T Wave [place] 37 degrees [employer] Phone: [employer] Work Phone: Vital signsOrdered By: Eduardo Feliciano on 01-28-2025 Heart rate 70 /min bpm [employer] Work Phone: XR Chest Single viewon 01-28 See findings. Report Dictated on Electronically Signed By: David Preston MD Electronically Signed Date/Time: 01/28/2025 2:33 AM [facility] RADIOLOGY SYSTEM Patient Name: MEGAN NASCIMENTO : 1940 [facility]#: [id number] Exam Date/Time: 01/28/2025 02:17 Procedure: XR CHEST [...] change of the thoracic spine is noted. [facility] RADIOLOGY SYSTEM David Preston MD - 01/28/2025 [facility] Name: ME[facility] 1940 [id number] Exam Date/Time: 01/28/2025 02:17 Procedure: XR CHEST [...] Electronically Signed Date/Time: 01/28/2025 2:33 AM EDT [facility] Radiology Study observation (narrative) [facility] alth XR Chest Single viewOrdered By: David Preston on 01-28-2025 [facility] [email or web address] Work Phone: No Panel Informationon 01-26 Sinus Rhythm -First degree A-V block -A sesi, V pacing ABNORMAL [facility] Office Visiton 01-26-2025 Follow-up visit [id number] Megan Nascimento 1940 M Date Provider Department Center 01/26/2025 [id number] [facility]OTH [facility] CV Susan Family History Problem Relation Age of Onset High Blood Pressure Father High Blood Pressure Mother Family Status - Relation Status Age at Father Mother Level of Service:54269 [place] OFFICE/OUTPATIENT ESTABLISHED MOD MDM 30 MIN Reason for Visit and Comments: Follow-up [[id number]] Normal [facility] Progress Noteon 01-26-2025 Progress Note [facility] [place] [address] [place] [address] [facility] [address] Dept: [phone] Dept Loc: [phone] DATE of SERVICE:01/26/25 TIME of SERVICE: 3:59 [...] so he went to the hospital in [place]. Before he might have diverticulitis. His creatinine [...] ventricular pacing Focused cardiac ultrasound: Not done Interior Decorator present for focused cardiac ultrasound: Not applicable [...] I assum (more content not included)... Normal [facility] 01-25-2025 36 PC to patient. Reviewed RBC recommendations. Reminded of appt tomorrow. He verbalized understanding. Normal [facility] 36 PC to patient. LMOM to call office Normal [facility] 36 PC to patient. LMOM he can take an extra torsemide 20 mg today. He is to call me back to confirm he received message. Normal [facility] 3601-24-2025 36 PC to patient. Leg swelling started last week after he went on a road trip to [place]. They did stop and get out of [...] Friday at 3:20. He verbalized understanding. Normal [facility] 36 Pt stating having sob and leg swelling Normal [facility] Abdomen/Pelvis without Conto n 12-12-2024 Abdomen/Pelvis without Cont [facility] Imaging Services [address] [place] [address] Abdomen/Pelvis without Cont MR#: [id number] Acct: [id number] Name: MEGAN NASCIMENTO Rep #: [id number] : 1940 M 84 From: [place]esto Mccoy DO PCP: Dr. Rigoberto Durand MD Status: REG ER Study: Abdomen/Pelvis without Cont Date of Exam: 11/19 12/12 Exam# [id number] Ordering Dr: Rena Franklin ADDENDUM by Dr. [...] to the right lower quadrant. Reading Location: [facility] 12/12/241434 Date cc: Dr. Rigoberto [...] lower chance of developing HCC. [facility] CC: Dr. Rigoberto Durand MD; DASIA [employer]aye [employer]: Signed Normal [facility] Absolute lymphocyte countOrd ered By: Rena Franklin on 12-12-2024 Lymphocytes Auto (Unsp spec) [#/Vol] 1.05 10*3/uL 0.83-4.51 [facility] Absolute neutrophil countOrd ered By: Rena Franklin on 12-12-2024 Neutrophils (Bld) [#/Vol] 4.6 10*3/uL 2.0-7.7 [facility] Anion gap in Serum or Plasma Ordered By: Rena Franklin on 12-12-2024 Anion gap [Moles/Vol] 17 mmol/L High 5-15 [facility] Automated lymphocyte count a s percentage of total leukocytesOrdered By: Rena Franklin on 12-12-2024 Lymphocytes/100 WBC Auto (Unsp spec) 16.7 % Low 19-41 [facility] BUN/creatinine ratioOrdered By: Rena Franklin on 12-12-2024 Urea nitrogen/Creatinine [Mass ratio] 14.4 mg/mg 10-20 [facility] Basophil percentageOrdered B y: Rena Franklin on 12-12-2024 Basophils/100 WBC (Bld) 1.3 % High 0-1 [facility] Bilirubin Test strip Ql (U)O rdered By: Rena Franklin on 12-12-2024 Bilirubin Ql (U) Negative Negative [facility] Bilirubin, totalOrdered By: Rena Franklin on 12-12-2024 Bilirubin [Mass/Vol] 0.83 mg/dL 0.00-1.30 [facility] CBC W/Diff, Automatedon 11-19 Absolute Lymph 1.05 X10 3/uL Normal 0.83-4.51 [facility] Comment on above: Performed By: #### L 501.2450, L500.4050, L100.0100 ####[facility] [address] [place], [address] Absolute Neut 4.6 X10 3/uL Normal 2.0-7.7 [facility] Comment on above: Performed By: #### L 501.2450, L500.4050, L100.0100 ####[facility] [address] [place], [address] Basophils/100 WBC (Bld) 1.3 % High 0-1 [facility] Comment on above: Performed By: #### L 501.2450, L500.4050, L100.0100 ####[facility] [address] [place], [address] Eosinophils/100 WBC (Bld) 2.4 % Normal 0-5 [facility] Comment on above: Performed By: #### L 501.2450, L500.4050, L100.0100 ####[facility] [address] [place], [address] Erythrocyte distribution width (RBC) [Ratio] 16.2 % High 11.6-14.6 [facility] Comment on above: Performed By: #### L 501.2450, L500.4050, L100.0100 ####[facility] [address] [place], [address] Hematocrit (Bld) [Volume fraction] 39.7 % Low 40-54 [facility] Comment on above: Performed By: #### L 501.2450, L500.4050, L100.0100 ####[facility] [address] [place], [address] Hemoglobin (Bld) [Mass/Vol] 12.9 g/dL Low 13.0-16.5 [facility] Comment on above: Performed By: #### L 501.2450, L500.4050, L100.0100 ####[facility] [address] [place], [address] IG% 0.500 Normal 0.0-0.9 [facility] Comment on above: Result Comment: IG% - Immature Granulocytes (promyelocytes, myelocytes and metamyelocytes) > 1% indicates that a LEFT SHIFT is Present. Performed By: #### L 501.2450, L500.4050, L100.0100 ####[facility] [address] [place], [address] Lymphocytes/100 WBC (Bld) 16.7 % Low 19-41 [facility] Comment on above: Performed By: #### L 501.2450, L500.4050, L100.0100 ####[facility] [address] [place], [address] MCH (RBC) [Entitic mass] 28.9 pg Normal 27.0-32.0 [facility] Comment on above: Performed By: #### L 501.2450, L500.4050, L100.0100 ####[facility] [address] [place], [address] MCHC (RBC) [Mass/Vol] 32.5 g/dL Normal 32-36 [facility] Comment on above: Performed By: #### L 501.2450, L500.4050, L100.0100 ####[facility] [address] [place], [address] MCV (RBC) [Entitic vol] 89.0 fL Normal 80-94 [facility] Comment on above: Performed By: #### L 501.2450, L500.4050, L100.0100 ####[facility] [address] [place], [address] Monocytes/100 WBC (Bld) 6.3 % Normal 0-10 [facility] Comment on above: Performed By: #### L 501.2450, L500.4050, L100.0100 ####[facility] [address] [place], [address] Neutrophils/100 WBC (Bld) 72.8 % High 47-70 [facility] Comment on above: Performed By: #### L 501.2450, L500.4050, L100.0100 ####[facility] [address] [place], [address] Nucleated RBC (Bld) [#/Vol] 0 10*3/uL Normal 0-5 [facility] Comment on above: Performed By: #### L 501.2450, L500.4050, L100.0100 ####[facility] [address] [place], [address] Platelet mean volume (Bld) [Entitic vol] 10.7 fL Normal 6.2-12.0 [facility] Comment on above: Performed By: #### L 501.2450, L500.4050, L100.0100 ####[facility] [address] [place], [address] Platelets (Bld) [#/Vol] 210 10*3/uL Normal 150-450 [facility] Comment on above: Performed By: #### L 501.2450, L500.4050, L100.0100 ####[facility] [address] [place], [address] RBC (Bld) [#/Vol] 4.46 10*6/uL Low 4.6-6.2 [facility] Comment on above: Performed By: #### L 501.2450, L500.4050, L100.0100 ####[facility] [address] [place], [address] RDW SD 52.4 fl High 35.1-43.9 [facility] Comment on above: Performed By: #### L 501.2450, L500.4050, L100.0100 ####[facility] [address] [place], [address] WBC (Bld) [#/Vol] 6.3 10*3/uL Normal 4.4-11.0 [facility] Comment on above: Performed By: #### L 501.2450, L500.4050, L100.0100 ####[facility] [address] [place], [address] Carbon dioxide, total [Moles /volume] in Central venous bloodOrdered By: Rena Franklin on 12-12-2024 CO2 [Moles/Vol] 19.6 mmol/L Low 21.0-32.0 [facility] Chloride assayOrdered By: Debbie Franklin on 12-12-2024 Chloride [Moles/Vol] 104 mmol/L 98-108 [facility] Comprehensive Metabolic Prof ilon 12-12-2024 Albumin [Mass/Vol] 4.2 g/dL Normal 3.4-4.8 [facility] Comment on above: Performed By: #### L 501.2450, L500.4050, L100.0100 ####[facility] [address] [place], [address] Albumin/Globulin [Mass ratio] 1.5 {ratio} Normal 0.9-2.4 [facility] Comment on above: Performed By: #### L 501.2450, L500.4050, L100.0100 ####[facility] [address] [place], [address] ALK PHOS 108 U/L Normal 40-129 [facility] Comment on above: Performed By: #### L 501.2450, L500.4050, L100.0100 ####[facility] [address] [place], [address] ALT [Catalytic activity/Vol] 15 U/L Normal <=46 [facility] Comment on above: Performed By: #### L 501.2450, L500.4050, L100.0100 ####[facility] [address] [place], [address] AST [Catalytic activity/Vol] 25 U/L Normal <=37 [facility] Comment on above: Performed By: #### L 501.2450, L500.4050, L100.0100 ####[facility] [address] [place], [address] Bilirubin [Mass/Vol] 0.83 mg/dL Normal 0.00-1.30 [facility] Comment on above: Performed By: #### L 501.2450, L500.4050, L100.0100 ####[facility] [address] [place], [address] BUN/CRE 14.4 RATIO Normal 10-20 [facility] Comment on above: Performed By: #### L 501.2450, L500.4050, L100.0100 ####[facility] [address] [place], [address] Calcium [Mass/Vol] 9.4 mg/dL Normal 7.6-11.0 [facility] Comment on above: Performed By: #### L 501.2450, L500.4050, L100.0100 ####[facility] [address] [place], [address] Chloride [Moles/Vol] 104 mmol/L Normal 98-108 [facility] Comment on above: Performed By: #### L 501.2450, L500.4050, L100.0100 ####[facility] [address] [place], [address] CO2 [Moles/Vol] 19.6 mmol/L Low 21.0-32.0 [facility] Comment on above: Performed By: #### L 501.2450, L500.4050, L100.0100 ####[facility] [address] [place], [address] Creatinine [Mass/Vol] 2.39 mg/dL High 0.70-1.20 [facility] Comment on above: Performed By: #### L 501.2450, L500.4050, L100.0100 ####[facility] [address] [place], [address] GAP 17 High 5-15 [facility] Comment on above: Performed By: #### L 501.2450, L500.4050, L100.0100 ####[facility] [address] [place], [address] GFR/1.73 sq M.predicted among non-blacks MDRD (S/P/Bld) [Vol rate/Area] 26 mL/min/{1.73_m2} Low >60 [facility] Comment on above: Result Comment: mL/m in/1.73m2 CKD-EPI Creatinine Equation (2020) Performed By: #### L 501.2450, L500.4050, L100.0100 ####[facility] [address] [place], [address] Globulin (S) [Mass/Vol] 2.9 g/dL Normal 2.2-4.2 [facility] Comment on above: Performed By: #### L 501.2450, L500.4050, L100.0100 ####[facility] [address] [place], [address] Glucose [Mass/Vol] 144 mg/dL High 70-99 [facility] Comment on above: Performed By: #### L 501.2450, L500.4050, L100.0100 ####[facility] [address] [place], [address] Potassium [Moles/Vol] 3.9 mmol/L Normal 3.3-5.1 [facility] Comment on above: Performed By: #### L 501.2450, L500.4050, L100.0100 ####[facility] [address] [place], [address] Sodium [Moles/Vol] 140 mmol/L Normal 133-145 [facility] Comment on above: Performed By: #### L 501.2450, L500.4050, L100.0100 ####[facility] [address] [place], [address] T PROT 7.1 g/dL Normal 5.9-8.4 [facility] Comment on above: Performed By: #### L 501.2450, L500.4050, L100.0100 ####[facility] [address] [place], [address] Urea nitrogen [Mass/Vol] 34 mg/dL High 4-19 [facility] Comment on above: Performed By: #### L 501.2450, L500.4050, L100.0100 ####[facility] [address] [place], [address] Emergency Department Summary on 12-12-2024 Emergency Department Summary [facility] Medical Records Department [address] [place] [address] Emergency Department Summary 12/12/24 MR#: [id number] Acct: [id number] Name: MEGAN NASCIMENTO Rep #: [id number] : 1940 84 From: Rena FORMAN PCP: [...] of CHF, HTN, CKD, T2DM, and GERD. [facility] Medical History Chronic pain of toe [...] Unk nown History tablet,extended release 24 hr tqkjcvdzgpzg-fii-spg ic acid-vit 1 tab PO DAILY not [...] substance use (more content not included)... Normal [facility] Eosinophil percentageOrdered By: Rena Franklin on 12-12-2024 Eosinophils/100 WBC (Bld) 2.4 % 0-5 [facility] Erythrocyte distribution wid th ratioOrdered By: Rena Franklin on 12-12-2024 Erythrocyte distribution width (RBC) [Ratio] 16.2 % High 11.6-14.6 [facility] Erythrocyte distribution wid th standard deviationOrdered By: Rena Franklin on 12-12-2024 Erythrocyte distribution width (RBC) [Ratio] 52.4 fl High 35.1-43.9 [facility] Glomerular filtration rate ( GFR) estimation/1.73 sq m using serum, plasma, or whole bOrdered By: Rena Franklin on 12-12-2024 GFR/1.73 sq M.predicted among non-blacks MDRD (S/P/Bld) [Vol rate/Area] 26 mL/min/{1.73_m2} Low >60 [facility] Comment on above: mL/min/1.73m2 CKD-EP I Creatinine Equation (2020) Hematocrit Auto (Bld) [Volum e fraction]Ordered By: Rena Franklin on 12-12-2024 Hematocrit (Bld) [Volume fraction] 39.7 % Low 40-54 [facility] Hemoglobin measurementOrdere d By: Rena Franklin on 12-12-2024 Hemoglobin (Bld) [Mass/Vol] 12.9 g/dL Low 13.0-16.5 [facility] Immature granulocytes/100 WB C Auto (Bld)Ordered By: Rena Franklin on 12-12-2024 Immature granulocytes/100 WBC (Bld) 0.500 % 0.0-0.9 [facility] Comment on above: IG% - Immature Granu locytes (promyelocytes, myelocytes and metamyelocytes) > 1% indicates that a LEFT SHIFT is Present. Ketones Test strip Ql (U)Ord ered By: Rnea Franklin on 12-12-2024 Ketones Ql (U) Negative Negative [facility] Laboratory - Chemistry and C hemistry - challengeOrdered By: Rena Franklin on 12-12-2024 AST [Catalytic activity/Vol] 25 U/L <38 [facility] Lipaseon 12-12-2024 Lipase [Catalytic activity/Vol] 36 U/L Normal 13-75 [facility] Comment on above: Result Comment: Plea se note: LIPASE revised reference range effective 22. New Lipase methodology. Expected to produce lower values than the previous assay method. NEW Reference Range: 13 - 75 U/L Performed By: #### L 501.2450, L500.4050, L100.0100 ####[facility] [address] [place], [address] Lipase measurementOrdered By : Rena Franklin on 12-12-2024 Lipase [Catalytic activity/Vol] 36 U/L 13-75 [facility] Comment on above: Please note:LIPASE r evised reference range effective 22. New Lipase methodology. Expected to produce lower values than the previous assay method. NEW Reference Range: 13 - 75 U/L MCV (mean corpuscular volume ) determinationOrdered By: Rena Franklin on 12-12-2024 MCV (RBC) [Entitic vol] 89.0 fL 80-94 [facility] Mean corpuscular hemoglobin (MCH) determinationOrdered By: Rena Franklin on 12-12-2024 MCH (RBC) [Entitic mass] 28.9 pg 27.0-32.0 [facility] Mean corpuscular hemoglobin concentration (MCHC) determinationOrdered By: Rena Franklin on 12-12-2024 MCHC (RBC) [Mass/Vol] 32.5 g/dL 32-36 [facility] Mean platelet volume determi nationOrdered By: Rena Franklin on 12-12-2024 Platelet mean volume (Bld) [Entitic vol] 10.7 fL 6.2-12.0 [facility] Microscopic analysis of urin e for red blood cells (RBC)Ordered By: Rena Franklin on 12-12-2024 Microscopic analysis of urine for red blood cells (RBC) 0 SEEN /hpf 0-5 [facility] Monocyte percentageOrdered B y: Rena Franklin on 12-12-2024 Monocytes/100 WBC (Bld) 6.3 % 0-10 [facility] Mucus LM Ql (Urine sed)Order ed By: Rena Franklin on 12-12-2024 Mucus Ql (Urine sed) 0 SEEN /hpf [facility] Neutrophil percentageOrdered By: Rena Franklin on 12-12-2024 Neutrophils/100 WBC (Bld) 72.8 % High 47-70 [facility] Nitrite Test strip Ql (U)Ord ered By: Rena Franklin on 12-12-2024 Nitrite Ql (U) Negative Negative [facility] Nucleated red blood cell per centageOrdered By: Rena Franklin on 12-12-2024 Nucleated RBC/100 WBC (Bld) [Ratio] 0 % 0-5 [facility] Platelet countOrdered By: Debbie Franklin on 12-12-2024 Platelets (Bld) [#/Vol] 210 10*3/uL 150-450 [facility] Potassium measurement (mass/ volume)Ordered By: Rena Franklin on 12-12-2024 Potassium (Unsp spec) [Mass/Vol] 3.9 mmol/L 3.3-5.1 [facility] Protein Test strip Ql (U)Ord ered By: Rena Franklin on 12-12-2024 Protein Ql (U) 30 mg/dl High Negative [facility] RBC Auto (Bld) [#/Vol]Ordere d By: Rena Franklin on 12-12-2024 RBC (Bld) [#/Vol] 4.46 10*6/uL Low 4.6-6.2 [facility] Serum creatinine measurement (mass/volume)Ordered By: Rena Franklin on 12-12-2024 Creatinine [Mass/Vol] 2.39 mg/dL High 0.70-1.20 [facility] Serum globulin measurementOr dered By: Rena Franklin on 12-12-2024 Globulin (S) [Mass/Vol] 2.9 g/dL 2.2-4.2 [facility] Serum glucose measurement (m ass/volume)Ordered By: Rena Franklin on 12-12-2024 Glucose [Mass/Vol] 144 mg/dL High 70-99 [facility] Serum or plasma alanine clay otransferase (ALT) measurementOrdered By: Rena Franklin on 12-12-2024 ALT [Catalytic activity/Vol] 15 U/L <47 [facility] Serum or plasma albumin geena urement (mass/volume)Ordered By: Rena Franklin on 12-12-2024 Albumin [Mass/Vol] 4.2 g/dL 3.4-4.8 [facility] Serum or plasma albumin/glob ulin mass ratioOrdered By: Rena Franklin on 12-12-2024 Albumin/Globulin [Mass ratio] 1.5 {ratio} 0.9-2.4 [facility] Serum or plasma alkaline camila sphatase measurementOrdered By: Rena Franklin on 12-12-2024 ALP [Catalytic activity/Vol] 108 U/L 40-129 [facility] Serum or plasma calcium geena urement (mass/volume)Ordered By: Rena Franklin on 12-12-2024 Calcium [Mass/Vol] 9.4 mg/dL 7.6-11.0 [facility] Serum or plasma urea nitroge n measurement (mass/volume)Ordered By: Rena Franklin on 12-12-2024 Urea nitrogen [Mass/Vol] 34 mg/dL High 4-19 [facility] Sodium levelOrdered By: Kash Franklin on 12-12-2024 Sodium [Moles/Vol] 140 mmol/L 133-145 [facility] Squamous epithelial cells de tection in urine sediment by light microscopyOrdered By: Rena Franklin on 12-12-2024 Epithelial cells.squamous LM Ql (Urine sed) 0 SEEN /hpf 0-5 [facility] Total proteinOrdered By: Erick Franklin on 12-12-2024 Protein [Mass/Vol] 7.1 g/dL 5.9-8.4 [facility] Urinalysis, Completeon 12-12 BACTERIA 0 SEEN Normal None Seen [facility] Comment on above: Order Comment: CLEAN CATCH Performed By: #### L 400.0001 ####[facility] [address] [place], [address] EPI,SQUAMOUS 0 SEEN Normal 0-5 [facility] Comment on above: Order Comment: CLEAN CATCH Performed By: #### L 400.0001 ####[facility] [address] [place], [address] Mucus Ql (Urine sed) 0 SEEN Normal [facility] Comment on above: Order Comment: CLEAN CATCH Performed By: #### L 400.0001 ####[facility] [address] [place], [address] RBC 0 SEEN Normal 0-5 [facility] Comment on above: Order Comment: CLEAN CATCH Performed By: #### L 400.0001 ####[facility] [address] [place], [address] WBC 0 SEEN Normal 0-5 [facility] Comment on above: Order Comment: CLEAN CATCH Performed By: #### L 400.0001 ####[facility] [address] [place], [address] Urine clarityOrdered By: Erick Franklin on 12-12-2024 Clarity (U) Clear Clear [facility] Urine color determinationOrd ered By: Rena Franklin on 12-12-2024 Color (U) Yellow Yellow [facility] Urine glucose detectionOrder ed By: Rena Franklin on 12-12-2024 Glucose Ql (U) Normal mg/dl Normal [facility] Urine leukocyte esterase det ection by dipstickOrdered By: Rena Franklin on 12-12-2024 Leukocyte esterase Test strip Ql (U) Negative Negative [facility] Urine pHOrdered By: Ranjit Franklin on 12-12-2024 pH (U) 6.0 [pH] 5.0 - 8.0 [facility] Urine sediment bacteria coun t by microscopy (number/high power field)Ordered By: Rena Franklin on 12-12-2024 Bacteria LM.HPF (Urine sed) [#/Area] 0 /[HPF] None Seen [facility] Urine specific gravity measu rementOrdered By: Rena Franklin on 12-12-2024 Specific gravity (U) [Rel density] 1.010 1.002-1.030 [facility] Urine urobilinogen measureme ntOrdered By: Rena Franklin on 12-12-2024 Urobilinogen Ql (U) Normal mg/dl Normal [facility] White blood cell (WBC) count Ordered By: Rena Franklin on 12-12-2024 WBC (Bld) [#/Vol] 6.3 10*3/uL 4.4-11.0 [facility] White blood cell countOrdere d By: Rena Franklin on 12-12-2024 White blood cell count 0 SEEN /hpf 0-5 [facility] Albumin DL <= 20 mg/L (U) [M ass/Vol]Ordered By: Rigoberto Durand on 09-27-2024 Urine Random Microalbumin < 12.0 mg/L NO RANGE EST. [facility] Anion gap in Serum or Plasma Ordered By: Rigoberto Durand on 09-27-2024 Anion gap [Moles/Vol] 17 mmol/L High - [facility] BUN/creatinine ratioOrdered By: Rigoberto Durand on 09-27-2024 Urea nitrogen/Creatinine [Mass ratio] 14.3 mg/mg 05-09 [facility] Basic Metabolic Profile (BMP )on 09-27-2024 BUN/CRE 14.3 RATIO Normal 05-09 [facility] Comment on above: Performed By: #### L 501.9985, L501.9910, L500.2500, L502.0250, L500.4100 ####[facility] [address] [place], [address] Calcium [Mass/Vol] 8.9 mg/dL Normal 7.6-11.0 [facility] Comment on above: Performed By: #### L 501.9985, L501.9910, L500.2500, L502.0250, L500.4100 ####[facility] [address] [place], [address] Chloride [Moles/Vol] 103 mmol/L Normal 98-108 [facility] Comment on above: Performed By: #### L 501.9985, L501.9910, L500.2500, L502.0250, L500.4100 ####[facility] [address] [place], [address] CO2 [Moles/Vol] 19.8 mmol/L Low 21.0-32.0 [facility] Comment on above: Performed By: #### L 501.9985, L501.9910, L500.2500, L502.0250, L500.4100 ####[facility] [address] [place], [address] Creatinine [Mass/Vol] 2.36 mg/dL High 0.70-1.20 [facility] Comment on above: Performed By: #### L 501.9985, L501.9910, L500.2500, L502.0250, L500.4100 ####[facility] [address] [place], [address] GAP 17 High 5-15 [facility] Comment on above: Performed By: #### L 501.9985, L501.9910, L500.2500, L502.0250, L500.4100 ####[facility] [address] [place], [address] GFR/1.73 sq M.predicted among non-blacks MDRD (S/P/Bld) [Vol rate/Area] 26 mL/min/{1.73_m2} Low >60 [facility] Comment on above: Result Comment: mL/m in/1.73m2 CKD-EPI Creatinine Equation (2020) Performed By: #### L 501.9985, L501.9910, L500.2500, L502.0250, L500.4100 ####[facility] [address] [place], [address] Glucose [Mass/Vol] 142 mg/dL High 70-99 [facility] Comment on above: Performed By: #### L 501.9985, L501.9910, L500.2500, L502.0250, L500.4100 ####[facility] [address] [place], [address] Potassium [Moles/Vol] 4.0 mmol/L Normal 3.3-5.1 [facility] Comment on above: Performed By: #### L 501.9985, L501.9910, L500.2500, L502.0250, L500.4100 ####[facility] [address] [place], [address] Sodium [Moles/Vol] 140 mmol/L Normal 133-145 [facility] Comment on above: Performed By: #### L 501.9985, L501.9910, L500.2500, L502.0250, L500.4100 ####[facility] [address] [place], [address] Urea nitrogen [Mass/Vol] 34 mg/dL High 4-19 [facility] Comment on above: Performed By: #### L 501.9985, L501.9910, L500.2500, L502.0250, L500.4100 ####[facility] [address] [place], [address] Calculated very low density lipoprotein (VLDL) cholesterol measurementOrdered By: Rigoberto Durand on 09-27-2024 Calculated very low density lipoprotein (VLDL) cholesterol measurement 36 mg/dL 5-40 [facility] VLDL Cholesterol 36 mg/dL 5-40 [facility] Carbon dioxide, total [Moles /volume] in Central venous bloodOrdered By: Rigoberto Durand on 09-27-2024 CO2 [Moles/Vol] 19.8 mmol/L Low 21.0-32.0 [facility] Chloride assayOrdered By: Dasia Durand on 09-27-2024 Chloride [Moles/Vol] 103 mmol/L 98-108 [facility] Creatinine Unsp time (U) [Ma ss/Vol]Ordered By: Rigoberto Durand on 09-27-2024 Creatinine (U) [Mass/Vol] 42.10 mg/dL 39-259 [facility] GFR/1.73 sq M.predicted [place] g non-blacks MDRD (S/P/Bld) [Vol rate/Area]Ordered By: Rigoberto Durand on 09-27-2024 Estimated GFR (MDRD) Non-Af Amer 26 Low >60 [facility] Comment on above: mL/min/1.73m2 CKD-EP I Creatinine Equation (2020) Glomerular filtration rate ( GFR) estimation/1.73 sq m using serum, plasma, or whole bOrdered By: Rigoberto Durand on 09-27-2024 GFR/1.73 sq M.predicted among non-blacks MDRD (S/P/Bld) [Vol rate/Area] 26 mL/min/{1.73_m2} Low >60 [facility] Comment on above: mL/min/1.73m2 CKD-EP I Creatinine Equation (2020) Hemoglobin A1con 09-27-2024 HbA1c (Bld) [Mass fraction] 6.5 % Normal <=5.6 [facility] Comment on above: Performed By: #### L 501.9985, L501.9910, L500.2500, L502.0250, L500.4100 ####[facility] [address] [place], [address] Hemoglobin A1c percentageOrd ered By: Rigoberto Durand on 09-27-2024 HbA1c (Bld) [Mass fraction] 6.5 % >5.7 [facility] LDL calc ser/plasOrdered By: Rigoberto Durand on 09-27-2024 Cholesterol in LDL [Mass/Vol] 82 mg/dL [facility] Comment on above: Wukwaiznou=341-743 m g/dL & Higher Hvqs=873 mg/dL or greater LDL Cholesterol, Calculated 82 mg/dL [facility] Comment on above: Qeuppbmohc=201-353 m g/dL & Higher Zucv=718 mg/dL or greater Lipid Profileon 09-27-2024 CHOL:HDL 4.51 Normal [facility] Comment on above: Performed By: #### L 501.9985, L501.9910, L500.2500, L502.0250, L500.4100 ####[facility] [address] [place], [address] Cholesterol [Mass/Vol] 152 mg/dL Normal <=200 [facility] Comment on above: Result Comment: Chol esterol level, Desirable <200 mg/dL Borderline high cholesterol 200-239 mg/dL High cholesterol >=240 mg/dL Recommendations of the NCEP Adult Treatment Panel for the following risk-cutoff thresholds for the [place] population. Performed By: #### L 501.9985, L501.9910, L500.2500, L502.0250, L500.4100 ####[facility] [address] [place], [address] Cholesterol in HDL [Mass/Vol] 34 mg/dL Low [facility] Comment on above: Result Comment: Buffy onal Cholesterol Education Program (NCEP) guidelines: <40 mg/dL: Low HDL-cholesterol (major risk factor for CHD) >= 60 mg/dL: High HDL-cholesterol (negative risk factor for CHD) HDL-cholesterol is affected by a number of factors, e.g. smoking, exercise, hormones, sex and age. Performed By: #### L 501.9985, L501.9910, L500.2500, L502.0250, L500.4100 ####[facility] [address] [place], [address] Cholesterol in LDL [Mass/Vol] 82 mg/dL Normal [facility] Comment on above: Result Comment: Bord hftusc=643-398 mg/dL Higher Ozpt=002 mg/dL or greater Performed By: #### L 501.9985, L501.9910, L500.2500, L502.0250, L500.4100 ####[facility] [address] [place], [place], [phone] Cholesterol in VLDL [Mass/Vol] 36 mg/dL Normal 5-40 [facility] Comment on above: Performed By: #### L 501.9985, L501.9910, L500.2500, L502.0250, L500.4100 ####[facility] [address] [place], [address] Triglyceride [Mass/Vol] 182 mg/dL Normal [facility] Comment on above: Result Comment: The drugs N-Acetylcysteine and Metamizole may falsely depress this assay. Normal range: <150 mg/dL Borderline High: 150-199 mg/dL High: 200-499 mg/dL Very High: >500 mg/dL Performed By: #### L 501.9985, L501.9910, L500.2500, L502.0250, L500.4100 ####[facility] [address] [place], [place], [phone] Microalb:Creat Ratio,Random URon 09-27-2024 Creatinine [Mass/Vol] 42.10 mg/dL Normal 39-259 [facility] Comment on above: Performed By: #### L 501.9985, L501.9910, L500.2500, L502.0250, L500.4100 ####[facility] [address] [place], [address] MALB:CREAT UNABLE TO CALCULATE Normal [facility] Comment on above: Performed By: #### L 501.9985, L501.9910, L500.2500, L502.0250, L500.4100 ####[facility] [address] [place], [address] MICROALBUMIN,UR < 12.0 Normal NO RANGE EST. [facility] Comment on above: Performed By: #### L 501.9985, L501.9910, L500.2500, L502.0250, L500.4100 ####[facility] [address] [place], [address] Microalbumin/creat ratio urO rdered By: Rigoberto Durand on 09-27-2024 Urine Microalbumin/Creatinine Ratio UNABLE TO CALCULATE mg/g CRE [facility] Urine microalbumin/creatinine ratio measurement UNABLE TO CALCULATE mg/g CRE [facility] PSA, total screeningOrdered By: Rigoberto Durand on 09-27-2024 Prostate Specific Antigen Screen 0.68 ng/mL 0.02-4.00 [facility] Comment on above: This test [...] 09-27-2024 PSA,TOT SCREEN 0.68 ng/mL Normal 0.02-4.00 [facility] Comment on above: Result Comment: This test was performed using the [employer] tPSA method. Measured values of a patient??sample can vary depending on the testing procedure used. PSA values determined on patient samples by different testing procedures cannot be used interchangeably. If there is a change in PSA assays while monitoring therapy, sequential testing should be performed to confirm baseline values. Performed By: #### L 501.9985, L501.9910, L500.2500, L502.0250, L500.4100 ####[facility] [address] [place], [address] Potassium (Unsp spec) [Mass/ Vol]Ordered By: Rigoberto Durand on 09-27-2024 Potassium [Moles/Vol] 4.0 mmol/L 3.3-5.1 [facility] Potassium measurement (mass/ volume)Ordered By: Rigoberto Durand on 09-27-2024 Potassium (Unsp spec) [Mass/Vol] 4.0 mmol/L 3.3-5.1 [facility] Random urine creatinine geena urement (mass/volume)Ordered By: Rigoberto Durand on 09-27-2024 Creatinine Unsp time (U) [Mass/Vol] 42.10 mg/dL 39-259 [facility] Screening total cholesterol/ high density lipoprotein (HDL) cholesterol ratioOrdered By: Rigoberto Durand on 09-27-2024 Cholesterol.total/Choles terol in HDL [Mass ratio] 4.51 {ratio} [facility] Serum creatinine measurement (mass/volume)Ordered By: Rigoberto Durand on 09-27-2024 Creatinine [Mass/Vol] 2.36 mg/dL High 0.70-1.20 [facility] Serum glucose measurement (m ass/volume)Ordered By: Rigoberto Durand on 09-27-2024 Glucose [Mass/Vol] 142 mg/dL High 70-99 [facility] Serum or plasma calcium geena urement (mass/volume)Ordered By: Rigoberto Durand on 09-27-2024 Calcium [Mass/Vol] 8.9 mg/dL 7.6-11.0 [facility] Serum or plasma cholesterol in HDL measurement (mass/volume)Ordered By: Rigoberto Durand on 09-27-2024 Cholesterol in HDL [Mass/Vol] 34 mg/dL Low >40 [facility] Comment on above: National Cholesterol Education Program (NCEP) guidelines:<40 mg/dL: Low HDL-cholesterol (major risk factor for CHD)>= 60 mg/dL: High HDL-cholesterol (negative risk factor for CHD)HDL-cholesterol is affected by a number of factors, e.g. smoking, exercise, hormones, sex and age. Serum or plasma cholesterol measurement (mass/volume)Ordered By: Rigoberto Durand on 09-27-2024 Cholesterol [Mass/Vol] 152 mg/dL <201 [facility] Comment on above: Cholesterol level, D esirable <200 mg/dLBorderline high cholesterol 200-239 mg/dLHigh cholesterol >=240 mg/dLRecommendations of the NCEP Adult Treatment Panel for the following risk-cutoff thresholds for the [place] population. Serum or plasma urea nitroge n measurement (mass/volume)Ordered By: Rigoberto Durand on 09-27-2024 Urea nitrogen [Mass/Vol] 34 mg/dL High 4-19 [facility] Sodium levelOrdered By: Rigoberto Durand on 09-27-2024 Sodium [Moles/Vol] 140 mmol/L 133-145 [facility] Triglycerides measurementOrd ered By: Rigoberto Durand on 09-27-2024 Triglyceride [Mass/Vol] 182 mg/dL <199 [facility] Comment on above: The drugs N-Acetylcy steine and Metamizole may falsely depress this assay. Normal range: <150 mg/dLBorderline High: 150-199 mg/dLHigh: 200-499 mg/dLVery High: >500 mg/dL Urine albumin measurement wi th detection limit of 20 mg/L or less (mass/volume)Ordered By: Rigoberto Durand on 09-27-2024 Albumin DL <= 20 mg/L (U) [Mass/Vol] < 12.0 mg/L NO RANGE EST. [facility] Progress Noteon 09-22-2024 Progress Note [facility] Telehealth Cardiology Note DATE of [...] HFrEF (heart failure with reduced ejection fraction) ([facility]) 09/22/2020 Bladder cancer ([facility]) CHF (congestive heart failure) ([facility]) Chronic HFrEF (heart failure with reduced ejection fraction) ([facility]) 09/21/2020 Chronic kidney disease DM (diabetes mellitus) ([facility]) DM (diabetes mellitus) ([facility]) DVT (deep venous thrombosis) ([facility]) ED (erectile dysfunction) Follicular non-Hodgkin's lymphoma ([facility]) GERD (gastroesophageal reflux disease) GERD (gastroesophageal reflux disease) HTN (hypertension) HTN (hypertension) Hyperlipidemia Left bundle branch block 09/11/2020 Non-ischemic cardiomyopathy (CMS/HCC) ([facility]) Presence of cardiac resynchronization therapy defibrillator ([employer]) 01/17/2022 PUD (peptic ulcer disease) Pulmonary embolism ([facility]) Pulmonary fibrosis ([facility]) Rosacea Stage 3b chronic kidney disease ([facility]) 09/21/2020 Tachycardia Past Surgical History Past Surgical [...] tablet, Rfl: 1 (more content not included)... [facility] 36on 07-28-2024 36 ----- Message from Gibson Lamb sent at 07/28/2024 8:57 AM EST ----- Regarding: RE: Clinic check Called and spoke with the patient regarding both appointments (dates/time) for 09-22-2024 at the [facility]. ----- Message ----- From: Di Hernández RN [...] can R/S him with you at the [place] office on 08-04-2024 @ 10:30. [place] [address] 07-20-2024 36 JAYMIE Everton Renteria [employer] 01/09/24, labs 01/09/24. Rx pended. [place] [address]on 06-16-2024 36 Last OV with Everton Renteria on 01/09/[address] 06-15-2024 36 Patient called [facility] and wanted to see if he could fill his cialis through our pharmacy, He does not have refills at [facility] pharmacy for this and It the last prescription that was sent to [facility] has no refills on it. Patient requested that we ask the cardio provider that prescribed it last time for refills. If appropriate please send prescription to [facility] pharmacy, Rx pended for review, Thank you! [facility] 36 Last OV with Everton Renteria on 01/09/24 BMP 01/09/24 [facility] Basic Metabolic Profile (BMP )on 04-16-2024 BUN/CRE 16.9 RATIO Normal 10- [facility] Comment on above: Performed By: #### L 501.9520, L500.4100, L500.2500 #### [facility] [address] [place], [place], [id number] [place],Total 8.7 mg/dL Normal 8.5-10.1 [facility] Comment on above: Result Comment: Slig ht Lipemia, Result may be falsely increased. Performed By: #### L 501.9520, L500.4100, L500.2500 #### [facility] [address] [place], [address] Chloride [Moles/Vol] 100 mmol/L Normal 98-107 [facility] Comment on above: Performed By: #### L 501.9520, L500.4100, L500.2500 #### [facility] [address] [place], [address] CO2 [Moles/Vol] 27.0 mmol/L Normal 21.0-32.0 [facility] Comment on above: Result Comment: Slig ht Lipemia, Result may be falsely increased. Performed By: #### L 501.9520, L500.4100, L500.2500 #### [facility] [address] [place], [address] Creatinine [Mass/Vol] 2.61 mg/dL High 0.70-1.30 [facility] Comment on above: Result Comment: Slig ht Lipemia, Result may be falsely increased. The validity of the calculated GFR GFRAA in patients over 70 years has not been determined. Clinical correlation is essential. Performed By: #### L 501.9520, L500.4100, L500.2500 #### [facility] [address] [place], [address] EST GFR - AA 30 mL/min Low >60 [facility] Comment on above: Result Comment: Afri can Samoan GFR Calc Performed By: #### L 501.9520, L500.4100, L500.2500 #### [facility] [address] [place], [address] GAP 10 Normal 5-15 [facility] Comment on above: Performed By: #### L 501.9520, L500.4100, L500.2500 #### [facility] [address] [place], [address] GFR/1.73 sq M.predicted among non-blacks MDRD (S/P/Bld) [Vol rate/Area] 25 mL/min/{1.73_m2} Low >60 [facility] Comment on above: Result Comment: Non- GFR Calc Performed By: #### L 501.9520, L500.4100, L500.2500 #### [facility] [address] [place], [address] Glucose [Mass/Vol] 161 mg/dL High 74-106 [facility] Comment on above: Result Comment: Slig ht Lipemia, Result may be falsely increased. Fasting Glucose result greater than or equal to 126 mg/dL suggests DIABETES MELLITUS per A.D.A. criteria. Performed By: #### L 501.9520, L500.4100, L500.2500 #### [facility] [address] [place], [address] Potassium [Moles/Vol] 3.4 mmol/L Low 3.5-5.1 [facility] Comment on above: Result Comment: Slig ht Lipemia, Result may be falsely increased. Performed By: #### L 501.9520, L500.4100, L500.2500 #### [facility] [address] [place], [address] Sodium [Moles/Vol] 136 mmol/L Normal 136-145 [facility] Comment on above: Performed By: #### L 501.9520, L500.4100, L500.2500 #### [facility] [address] [place], [address] Urea nitrogen [Mass/Vol] 44 mg/dL High 7-18 [facility] Comment on above: Result Comment: Slig ht Lipemia, Result may be falsely increased. Performed By: #### L 501.9520, L500.4100, L500.2500 #### [facility] [address] [place], [address] Lipid Profileon 04-16-2024 Cholesterol [Mass/Vol] 274 mg/dL High 200 [facility] Comment on above: Result Comment: Slig ht Lipemia, Result may be falsely increased. <200 mg/dL Desirable 200-240 mg/dL Borderline >240 mg/dL High Risk Performed By: #### L 501.9520, L500.4100, L500.2500 #### [facility] [address] [place], [address] Cholesterol in HDL [Mass/Vol] 28 mg/dL Low [facility] Comment on above: Result Comment: The drugs N-Acetylcysteine and Metamizole may falsely depress this assay. Reference Range HDL <40 mg/dL Low HDL Cholesterol HDL >or= 60 mg/dL High HDL Cholesterol Performed By: #### L 501.9520, L500.4100, L500.2500 #### [facility] [address] [place], [address] LDL TNP Normal 0-130 [facility] Comment on above: Performed By: #### L 501.9520, L500.4100, L500.2500 #### [facility] [address] [place], [address] Triglyceride [Mass/Vol] 644 mg/dL High [facility] Comment on above: Result Comment: [...] By: #### L 501.9520, L500.4100, L500.2500 #### [facility] [address] [place], [address] VLDL TNP Normal 5-40 [facility] Comment on above: Performed By: #### L 501.9520, L500.4100, L500.2500 #### [facility] [address] [place], [address] Thyroid Stim Hormone (TSH)on 04-16-2024 TSH 1.380 uIU/mL Normal 0.358-3.740 [facility] Comment on above: Performed By: #### L 501.9520, L500.4100, L500.2500 ####[facility] [address] [place], [address] 36on 03-20-2024 36 There is very little difference between the vasodilators sildenafil and tadalafil. I will make the switch and discuss it with him at my next visit. [facility] 36on 03-19-2024 36 [facility] spoke with patient today; he stated he [...] therapy change appropriate please send prescription to [facility] pharmacy, Thank you so much! [facility] 36on 03-18-2024 36 Last OV with Everton Renteria on 01/09/24 BMP 01/09/24 [facility] 36 Refill requested. RX pended. Thanks! [facility] Absolute lymphocyte countOrd ered By: Shaun Taveras on 11-27-2023 Lymphocytes Auto (Unsp spec) [#/Vol] 0.54 10*3/uL 0.83-4.51 [facility] Automated lymphocyte count a s percentage of total leukocytesOrdered By: Shaun Taveras on 11-27-2023 Lymphocytes/100 WBC Auto (Unsp spec) 2.1 % 19-41 [facility] Basophil percentageOrdered B y: Shaun Taveras on 11-27-2023 Lactate [Moles/Vol] 1.2 mmol/L 0.4-2.0 [facility] Basophil percentage 0 SEEN /hpf 0-5 [facility] Basophils/100 WBC (Bld) 0.3 % 0-1 [facility] Chloride [Moles/Vol] 95 mmol/L 98-107 [facility] Eosinophils/100 WBC (Bld) 0.4 % 0-5 [facility] Glucose [Mass/Vol] 214 mg/dL 74-106 [facility] Comment on above: Glucose result great er than or equal to 200 mg/dLsuggests DIABETES MELLITUS per A.D.A. criteria. Hemoglobin (Bld) [Mass/Vol] 11.1 g/dL 13.0-16.5 [facility] Monocytes/100 WBC (Bld) 4.0 % 0-10 [facility] Neutrophils (Bld) [#/Vol] 23.2 10*3/uL 2.0-7.7 [facility] Neutrophils/100 WBC (Bld) 90.4 % 47-70 [facility] Potassium [Moles/Vol] 3.2 mmol/L 3.5-5.1 [facility] Sodium [Moles/Vol] 132 mmol/L 136-145 [facility] WBC (Bld) [#/Vol] 25.7 10*3/uL 4.4-11.0 [facility] Bilirubin Test strip Ql (U)O rdered By: Shaun Taveras on 11-27-2023 Bilirubin Ql (U) Negative Negative [facility] Blood manual differential co mment interpretation (narrative result)Ordered By: Shaun Taveras on 11-27-2023 Manual differential comment Raymond (Bld) [Interp] SCANNED [facility] Determination of erythrocyte mean corpuscular volume (MCV)Ordered By: Shaun Taveras on 11-27-2023 MCV (RBC) [Entitic vol] 90.6 fL 80-94 [facility] Erythrocyte distribution wid th ratioOrdered By: Shaun Taveras on 11-27-2023 Erythrocyte distribution width (RBC) [Ratio] 13.7 % 11.6-14.6 [facility] Erythrocyte distribution wid th standard deviationOrdered By: Shaun Taveras on 11-27-2023 Erythrocyte distribution width (RBC) [Entitic vol] 45.2 fL 35.1-43.9 [facility] Hematocrit Auto (Bld) [Volum e fraction]Ordered By: Shaun Taveras on 11-27-2023 Hematocrit (Bld) [Volume fraction] 34.6 % 40-54 [facility] Immature granulocytes/100 WB C Auto (Bld)Ordered By: Shaun Taveras on 11-27-2023 Immature granulocytes/100 WBC (Bld) 2.800 % 0.0-0.9 [facility] Comment on above: IG% - Immature Granu locytes (promyelocytes, myelocytes and metamyelocytes) > 1% indicates that a LEFT SHIFT is Present. Ketones Test strip Ql (U)Ord ered By: Shaun Taveras on 11-27-2023 Ketones Ql (U) Negative Negative [facility] - Chemistry and C hemistry - challengeOrdered By: Shaun Taveras on 11-27-2023 CK [Catalytic activity/Vol] 2351 U/L 39-308 [facility] CO2 [Moles/Vol] 23.0 mmol/L 21.0-32.0 [facility] Magnesium [Mass/Vol] 1.8 mg/dL 1.6-2.6 [facility] Natriuretic peptide B (Bld) [Mass/Vol] 610.2 pg/mL 0-100 [facility] Urea nitrogen/Creatinine [Mass ratio] 17.9 mg/mg 10-20 [facility] - Hematology and Cell countsOrdered By: Shaun Taveras on 11-27-2023 MCH (RBC) [Entitic mass] 29.1 pg 27.0-32.0 [facility] MCHC (RBC) [Mass/Vol] 32.1 g/dL 32-36 [facility] Nucleated RBC/100 WBC (Bld) [Ratio] 0 % 0-5 [facility] Platelet mean volume (Bld) [Entitic vol] 11.3 fL 6.2-12.0 [facility] Platelets (Bld) [#/Vol] 226 10*3/uL 150-450 [facility] - Microbiology an d Antimicrobial susceptibilityOrdered By: Shaun Taveras on 11-27-2023 SARS-CoV-2 (COVID-19) RNA SUDEEP+probe Ql (Unsp spec) [facility] Mucus LM Ql (Urine sed)Order ed By: Shaun Taveras on 11-27-2023 Mucus Ql (Urine sed) 0 SEEN /hpf [facility] Nitrite Test strip Ql (U)Ord ered By: Shaun Taveras on 11-27-2023 Nitrite Ql (U) Negative Negative [facility] No Panel InformationOrdered By: Shaun Taveras on 11-27-2023 Urine RBC 0 SEEN /hpf 0-5 [facility] Estimated Creatinine Clearance Calc 15.27 ml/min [facility] Estimated GFR (MDRD) Amer 19 mL/min >60 [facility] Comment on above: GFR Calc Estimated GFR (MDRD) Non-Af Amer 16 mL/min >60 [facility] Comment on above: Non- GFR Calc Protein Test strip Ql (U)Ord ered By: Shaun Taveras on 11-27-2023 Protein Ql (U) Negative Negative [facility] RBC Auto (Bld) [#/Vol]Ordere d By: Shaun Taveras on 11-27-2023 RBC (Bld) [#/Vol] 3.82 10*6/uL 4.6-6.2 [facility] Serum or plasma calcium geena urement (mass/volume)Ordered By: Shaun Taveras on 11-27-2023 Calcium [Mass/Vol] 8.7 mg/dL 8.5-10.1 [facility] Serum or plasma creatinine m easurement (mass/volume)Ordered By: Shaun Taveras on 11-27-2023 Creatinine [Mass/Vol] 3.86 mg/dL 0.70-1.30 [facility] Comment on above: The validity of the calculated GFR & GFRAA in patients over 70 years has not been determined. Clinical correlation is essential. Serum or plasma thyroid stim ulating hormone (TSH) measurement (units/volume)Ordered By: Shaun Taveras on 11-27-2023 TSH Qn 1.10 uIU/mL 0.358-3.74 [facility] Serum or plasma urea nitroge n measurement (mass/volume)Ordered By: Shaun Taveras on 11-27-2023 Urea nitrogen [Mass/Vol] 69 mg/dL 7-18 [facility] Squamous epithelial cells de tection in urine sediment by light microscopyOrdered By: Shaun Taveras on 11-27-2023 Epithelial cells.squamous LM Ql (Urine sed) 0 SEEN /hpf 0-5 [facility] Thin prep Papanicolaou smear with manual screeningOrdered By: Shaun Taveras on 11-27-2023 Thin prep Papanicolaou smear with manual screening 14 5-15 [facility] Urine blood detectionOrdered By: Shaun Taveras on 11-27-2023 RBC Ql (U) Negative Negative [facility] Urine clarityOrdered By: Doug Taveras on 11-27-2023 Clarity (U) Clear Clear [facility] Urine color determinationOrd ered By: Shaun Taveras on 11-27-2023 Color (U) Yellow Yellow [facility] Urine glucose detectionOrder ed By: Shaun Taveras on 11-27-2023 Glucose Ql (U) Normal mg/dl Normal [facility] Urine leukocyte esterase det ection by dipstickOrdered By: Shaun Taveras on 11-27-2023 Leukocyte esterase Test strip Ql (U) Negative Negative [facility] Urine pHOrdered By: Shaun gregg on 11-27-2023 pH (U) 5.0 [pH] 5.0 - 8.0 [facility] Urine sediment bacteria coun t by microscopy (number/high power field)Ordered By: Shaun Taveras on 11-27-2023 Bacteria LM.HPF (Urine sed) [#/Area] 0 /[HPF] None Seen [facility] Urine specific gravity measu rementOrdered By: Shaun Taveras on 11-27-2023 Specific gravity (U) [Rel density] 1.015 1.002-1.030 [facility] Urine urobilinogen measureme ntOrdered By: Shaun Taveras on 11-27-2023 Urobilinogen Ql (U) Normal mg/dl Normal [facility] Basophil percentageOrdered B y: Rigoberto Durand on 08-29-2023 Chloride [Moles/Vol] 100 mmol/L 98-107 [facility] Glucose [Mass/Vol] 185 mg/dL 74-106 [facility] Comment on above: Fasting Glucose resu lt greater than or equal to 126 mg/dL suggests DIABETES MELLITUS per A.D.A. criteria. Potassium [Moles/Vol] 3.6 mmol/L 3.5-5.1 [facility] Sodium [Moles/Vol] 136 mmol/L 136-145 [facility] Laboratory - Chemistry and C hemistry - challengeOrdered By: Rigoberto Durand on 08-29-2023 CO2 [Moles/Vol] 30.0 mmol/L 21.0-32.0 [facility] Urea nitrogen/Creatinine [Mass ratio] 16.7 mg/mg 10-20 [facility] No Panel InformationOrdered By: Rigoberto Durand on 08-29-2023 Estimated GFR (MDRD) Amer 36 mL/min >60 [facility] Comment on above: GFR Calc Estimated GFR (MDRD) Non-Af Amer 29 mL/min >60 [facility] Comment on above: Non- GFR Calc Free Triiodothyronine (T3) pg/dL 1.8 pg/mL 2.18-3.98 [facility] Serum or plasma calcium geena urement (mass/volume)Ordered By: Rigoberto Durand on 08-29-2023 Calcium [Mass/Vol] 9.1 mg/dL 8.5-10.1 [facility] Serum or plasma creatinine m easurement (mass/volume)Ordered By: Rigoberto Durand on 08-29-2023 Creatinine [Mass/Vol] 2.27 mg/dL 0.70-1.30 [facility] Comment on above: The validity of the calculated GFR & GFRAA in patients over 70 years has not been determined. Clinical correlation is essential. Serum or plasma thyroid stim ulating hormone (TSH) measurement (units/volume)Ordered By: Rigoberto Durand on 08-29-2023 TSH Qn 2.06 uIU/mL 0.358-3.74 [facility] Serum or plasma urea nitroge n measurement (mass/volume)Ordered By: Rigoberto Durand on 08-29-2023 Urea nitrogen [Mass/Vol] 38 mg/dL 7-18 [facility] Thin prep Papanicolaou smear with manual screeningOrdered By: Rigoberto Durand on 08-29-2023 Thin prep Papanicolaou smear with manual screening 6 5-15 [facility] Thin prep Papanicolaou smear with manual screening 1.12 ng/dL 0.76-1.46 [facility] Basophil percentageOrdered B y: Rigoberto Durand on 06-02-2023 Bilirubin [Mass/Vol] 0.70 mg/dL 0.20-1.00 [facility] Comment on above: For patients on eltr ombopag therapy, use of Dimension [place] TBIL is not recommended. Chloride [Moles/Vol] 101 mmol/L 98-107 [facility] Cholesterol [Mass/Vol] 181 mg/dL <200 [facility] Comment on above: <200 mg/dL Desirable 200-240 mg/dL Borderline >240 mg/dL High Risk Glucose [Mass/Vol] 162 mg/dL 74-106 [facility] Comment on above: Fasting Glucose resu lt greater than or equal to 126 mg/dL suggests DIABETES MELLITUS per A.D.A. criteria. Potassium [Moles/Vol] 3.8 mmol/L 3.5-5.1 [facility] Protein [Mass/Vol] 7.3 g/dL 6.4-8.2 [facility] Sodium [Moles/Vol] 138 mmol/L 136-145 [facility] Triglyceride [Mass/Vol] 265 mg/dL <199 [facility] Comment on above: The drugs N-Acetylcy steine and Metamizole may falsely depress this assay.Serum Triglycerides Reference Interval Normal <150 mg/dL Borderline high 150 - 199 mg/dL High 200 - 499 mg/dL Very High > or = 500 mg/dL Laboratory - Chemistry and C hemistry - challengeOrdered By: Rigoberto Durand on 06-02-2023 ALP [Catalytic activity/Vol] 136 U/L 45-117 [facility] ALT [Catalytic activity/Vol] 30 U/L 16-61 [facility] CO2 [Moles/Vol] 27.0 mmol/L 21.0-32.0 [facility] Globulin (S) [Mass/Vol] 3.5 g/dL 2.2-4.2 [facility] Urea nitrogen/Creatinine [Mass ratio] 19.8 mg/mg 10-20 [facility] No Panel InformationOrdered By: Rigoberto Durand on 06-02-2023 Estimated GFR (MDRD) Amer 31 mL/min >60 [facility] Comment on above: GFR Calc Estimated GFR (MDRD) Non-Af Amer 26 mL/min >60 [facility] Comment on above: Non- GFR Calc Prostate Specific Antigen Screen 0.50 ng/mL 0.00-4.00 [facility] Comment on above: This test was perfor med using the TPSA assay method [facility]. Values obtained with differentassay methods cannot be used interchangably.When changing PSA assays in the course of monitoring apatient, additional sequential testing should be carriedout to confirm baseline values. Serum or plasma albumin geena urement (mass/volume)Ordered By: Rigoberto Durand on 06-02-2023 Albumin [Mass/Vol] 3.8 g/dL 3.2-5.0 [facility] Serum or plasma albumin/glob ulin mass ratioOrdered By: Rigoberto Durand on 06-02-2023 Albumin/Globulin [Mass ratio] 1.1 {ratio} 0.9-2.4 [facility] Serum or plasma calcium geena urement (mass/volume)Ordered By: Rigoberto Durand on 06-02-2023 Calcium [Mass/Vol] 8.3 mg/dL 8.5-10.1 [facility] Serum or plasma cholesterol in HDL measurement (mass/volume)Ordered By: Rigoberto Durand on 06-02-2023 Cholesterol in HDL [Mass/Vol] 37 mg/dL >40 [facility] Comment on above: The drugs N-Acetylcy steine and Metamizole may falsely depress this assay. Reference Range HDL <40 mg/dL Low HDL Cholesterol HDL >or= 60 mg/dL High HDL Cholesterol Serum or plasma cholesterol in VLDL measurement (mass/volume)Ordered By: Rigoberto Durand on 06-02-2023 Cholesterol in VLDL [Mass/Vol] 53 mg/dL 5-40 [facility] Serum or plasma creatinine m easurement (mass/volume)Ordered By: Rigoberto Durand on 06-02-2023 Creatinine [Mass/Vol] 2.53 mg/dL 0.70-1.30 [facility] Comment on above: The validity of the calculated GFR & GFRAA in patients over 70 years has not been determined. Clinical correlation is essential. Serum or plasma low density lipoprotein (LDL) cholesterol measurement (mass/volume)Ordered By: Rigoberto Durand on 06-02-2023 Cholesterol in LDL [Mass/Vol] 91 mg/dL 0-130 [facility] Serum or plasma urea nitroge n measurement (mass/volume)Ordered By: Rigoberto Durand on 06-02-2023 Urea nitrogen [Mass/Vol] 50 mg/dL 7-18 [facility] Thin prep Papanicolaou smear with manual screeningOrdered By: Rigoberto Durand on 06-02-2023 Thin prep Papanicolaou smear with manual screening 17 U/L 15-37 [facility] Thin prep Papanicolaou smear with manual screening 10 5-15 [facility] Basophil percentageOrdered B y: Rigoberto Durand on 03-04-2023 Chloride [Moles/Vol] 101 mmol/L 98-107 [facility] Cholesterol [Mass/Vol] 287 mg/dL <200 [facility] Comment on above: <200 mg/dL Desirable 200-240 mg/dL Borderline >240 mg/dL High Risk Glucose [Mass/Vol] 173 mg/dL 74-106 [facility] Comment on above: Fasting Glucose resu lt greater than or equal to 126 mg/dL suggests DIABETES MELLITUS per A.D.A. criteria. Potassium [Moles/Vol] 3.6 mmol/L 3.5-5.1 [facility] Sodium [Moles/Vol] 137 mmol/L 136-145 [facility] Triglyceride [Mass/Vol] 576 mg/dL <199 [facility] Comment on above: The drugs [...] on 03-04-2023 CO2 [Moles/Vol] 29.0 mmol/L 21.0-32.0 [facility] Urea nitrogen/Creatinine [Mass ratio] 14.5 mg/mg 10-20 [facility] No Panel InformationOrdered By: Rigoberto Durand on 03-04-2023 Estimated GFR (MDRD) Amer 33 mL/min >60 [facility] Comment on above: GFR Calc Estimated GFR (MDRD) Non-Af Amer 27 mL/min >60 [facility] Comment on above: Non- GFR Calc Serum or plasma calcium geena urement (mass/volume)Ordered By: Rigoberto Durand on 03-04-2023 Calcium [Mass/Vol] 8.8 mg/dL 8.5-10.1 [facility] Serum or plasma cholesterol in HDL measurement (mass/volume)Ordered By: Rigoberto Durand on 03-04-2023 Cholesterol in HDL [Mass/Vol] 27 mg/dL >40 [facility] Comment on above: The drugs N-Acetylcy steine and Metamizole may falsely depress this assay. Reference Range HDL <40 mg/dL Low HDL Cholesterol HDL >or= 60 mg/dL High HDL Cholesterol Serum or plasma cholesterol in VLDL measurement (mass/volume)Ordered By: Rigoberto Durand on 03-04-2023 Cholesterol in VLDL [Mass/Vol] [facility] Comment on above: Test not performed Serum or plasma creatinine m easurement (mass/volume)Ordered By: Rigoberto Durand on 03-04-2023 Creatinine [Mass/Vol] 2.41 mg/dL 0.70-1.30 [facility] Comment on above: The validity of the calculated GFR & GFRAA in patients over 70 years has not been determined. Clinical correlation is essential. Serum or plasma low density lipoprotein (LDL) cholesterol measurement (mass/volume)Ordered By: Rigoberto Durand on 03-04-2023 Cholesterol in LDL [Mass/Vol] [facility] Comment on above: Test not performed Serum or plasma urea nitroge n measurement (mass/volume)Ordered By: Rigoberto Durand on 03-04-2023 Urea nitrogen [Mass/Vol] 35 mg/dL 02-04 [facility] Thin prep Papanicolaou smear with manual screeningOrdered By: Rigoberto Durand on 03-04-2023 Thin prep Papanicolaou smear with manual screening 12-02 [facility] Basophil percentageOrdered B y: Dr. Durand on 08-26-2022 Chloride [Moles/Vol] 99 mmol/L 98-107 [facility] Cholesterol [Mass/Vol] 143 mg/dL <200 [facility] Comment on above: <200 mg/dL Desirable 200-240 mg/dL Borderline >240 mg/dL High Risk Glucose [Mass/Vol] 156 mg/dL 74-106 [facility] Comment on above: Fasting Glucose resu lt greater than or equal to 126 mg/dL suggests DIABETES MELLITUS per A.D.A. criteria. Potassium [Moles/Vol] 3.7 mmol/L 3.5-5.1 [facility] Sodium [Moles/Vol] 138 mmol/L 136-145 [facility] Triglyceride [Mass/Vol] 370 mg/dL <199 [facility] Comment on above: The drugs N-Acetylcy steine and Metamizole may falsely depress this assay.Serum Triglycerides Reference Interval Normal <150 mg/dL Borderline high 150 - 199 mg/dL High 200 - 499 mg/dL Very High > or = 500 mg/dL Laboratory - Chemistry and C hemistry - challengeOrdered By: Dr. Durand on 08-26-2022 CO2 [Moles/Vol] 28.0 mmol/L 21.0-32.0 [facility] Free T4 [Mass/Vol] 0.97 ng/dL 0.76-1.46 [facility] Urea nitrogen/Creatinine [Mass ratio] 18.5 mg/mg 10-20 [facility] No Panel InformationOrdered By: Dr. Durand on 08-26-2022 Estimated GFR (MDRD) Amer 26 mL/min >60 [facility] Comment on above: GFR Calc Estimated GFR (MDRD) Non-Af Amer 22 mL/min >60 [facility] Comment on above: Non- GFR Calc Free Triiodothyronine (T3) pg/dL 1.5 pg/mL 2.18-3.98 [facility] Thyroid Stimulating Hormone (TSH) 2.24 uIU/mL 0.358-3.74 [facility] Total Triiodothyronine 0.52 ng/mL 0.6-1.81 [facility] Serum or plasma calcium geena urement (mass/volume)Ordered By: Dr. Durand on 08-26-2022 Calcium [Mass/Vol] 8.9 mg/dL 8.5-10.1 [facility] Serum or plasma cholesterol in HDL measurement (mass/volume)Ordered By: Dr. Durand on 08-26-2022 Cholesterol in HDL [Mass/Vol] 32 mg/dL >40 [facility] Comment on above: The drugs N-Acetylcy steine and Metamizole may falsely depress this assay. Reference Range HDL <40 mg/dL Low HDL Cholesterol HDL >or= 60 mg/dL High HDL Cholesterol Serum or plasma cholesterol in VLDL measurement (mass/volume)Ordered By: Dr. Durand on 08-26-2022 Cholesterol in VLDL [Mass/Vol] 74 mg/dL 5-40 [facility] Serum or plasma creatinine m easurement (mass/volume)Ordered By: Dr. Durand on 08-26-2022 Creatinine [Mass/Vol] 2.98 mg/dL 0.70-1.30 [facility] Comment on above: The validity of the calculated GFR & GFRAA in patients over 70 years has not been determined. Clinical correlation is essential. Serum or plasma low density lipoprotein (LDL) cholesterol measurement (mass/volume)Ordered By: Dr. Durand on 08-26-2022 Cholesterol in LDL [Mass/Vol] 37 mg/dL 0-130 [facility] Serum or plasma urea nitroge n measurement (mass/volume)Ordered By: Dr. Durand on 08-26-2022 Urea nitrogen [Mass/Vol] 55 mg/dL 7-18 [facility] Thin prep Papanicolaou smear with manual screeningOrdered By: Dr. Durand on 08-26-2022 Thin prep Papanicolaou smear with manual screening 11 5-15 [facility] Basophil percentageOrdered B y: Dr. Durand on 05-16-2022 Chloride [Moles/Vol] 98 mmol/L 98-107 [facility] Cholesterol [Mass/Vol] 149 mg/dL <200 [facility] Comment on above: <200 mg/dL Desirable 200-240 mg/dL Borderline >240 mg/dL High Risk Glucose [Mass/Vol] 147 mg/dL 74-106 [facility] Comment on above: Fasting Glucose resu lt greater than or equal to 126 mg/dL suggests DIABETES MELLITUS per A.D.A. criteria. Potassium [Moles/Vol] 3.8 mmol/L 3.5-5.1 [facility] Sodium [Moles/Vol] 135 mmol/L 136-145 [facility] Triglyceride [Mass/Vol] 271 mg/dL <199 [facility] Comment on above: The drugs N-Acetylcy steine and Metamizole may falsely depress this assay.Serum Triglycerides Reference Interval Normal <150 mg/dL Borderline high 150 - 199 mg/dL High 200 - 499 mg/dL Very High > or = 500 mg/dL Laboratory - Chemistry and C hemistry - challengeOrdered By: Dr. Durand on 05-16-2022 CO2 [Moles/Vol] 27.0 mmol/L 21.0-32.0 [facility] Free T4 [Mass/Vol] 0.98 ng/dL 0.76-1.46 [facility] Urea nitrogen/Creatinine [Mass ratio] 22.8 mg/mg 10-20 [facility] No Panel InformationOrdered By: Dr. Durand on 05-16-2022 Estimated GFR (MDRD) Amer 26 mL/min >60 [facility] Comment on above: GFR Calc Estimated GFR (MDRD) Non-Af Amer 21 mL/min >60 [facility] Comment on above: Non- GFR Calc Free Triiodothyronine (T3) pg/dL 1.5 pg/mL 2.18-3.98 [facility] Prostate Specific Antigen Screen 0.33 ng/mL 0.00-4.00 [facility] Comment on above: This test was perfor med using the TPSA assay method for the[employer] chemistry system. Values obtained with differentassay methods cannot be used interchangably.When changing PSA assays in the course of monitoring apatient, additional sequential testing should be carriedout to confirm baseline values. Thyroid Stimulating Hormone (TSH) 1.79 uIU/mL 0.358-3.74 [facility] Urine Microalbumin/Creatinine Ratio 16.7 mg/g CRE <30 [facility] Serum or plasma calcium geena urement (mass/volume)Ordered By: Dr. Durand on 05-16-2022 Calcium [Mass/Vol] 9.0 mg/dL 8.5-10.1 [facility] Serum or plasma cholesterol in HDL measurement (mass/volume)Ordered By: Dr. Durand on 05-16-2022 Cholesterol in HDL [Mass/Vol] 33 mg/dL >40 [facility] Comment on above: The drugs N-Acetylcy steine and Metamizole may falsely depress this assay. Reference Range HDL <40 mg/dL Low HDL Cholesterol HDL >or= 60 mg/dL High HDL Cholesterol Serum or plasma cholesterol in VLDL measurement (mass/volume)Ordered By: Dr. Durand on 05-16-2022 Cholesterol in VLDL [Mass/Vol] 54 mg/dL 5-40 [facility] Serum or plasma creatinine m easurement (mass/volume)Ordered By: Dr. Durand on 05-16-2022 Creatinine [Mass/Vol] 3.03 mg/dL 0.70-1.30 [facility] Comment on above: The validity of the calculated GFR & GFRAA in patients over 70 years has not been determined. Clinical correlation is essential. Serum or plasma low density lipoprotein (LDL) cholesterol measurement (mass/volume)Ordered By: Dr. Durand on 05-16-2022 Cholesterol in LDL [Mass/Vol] 62 mg/dL 0-130 [facility] Serum or plasma urea nitroge n measurement (mass/volume)Ordered By: Dr. Durand on 05-16-2022 Urea nitrogen [Mass/Vol] 69 mg/dL 7-18 [facility] Thin prep Papanicolaou smear with manual screeningOrdered By: Dr. Durand on 05-16-2022 Thin prep Papanicolaou smear with manual screening 10 5-15 [facility] Thin prep Papanicolaou smear with manual screening 11.0 mg/L NO RANGE EST. [facility] Urine creatinine measurement (mass/volume)Ordered By: Dr. Durand on 05-16-2022 Creatinine (U) [Mass/Vol] 65.70 mg/dL NO RANGE EST. [facility] Echo 2D Doppler Coloron 08-3 TRANSTHORACIC ECHOCARDIOGRAM PATIENT: Megan Nascimento STUDY DATE: 03/20/2022 : 1940 AGE: 81 HT/WT: 170.2 cm (67 77.1 kg in) (169.6 lb) GENDER: M BP: 116 / 64 LOCATION: [facility] Outpatient [facility] STATUS: *ORDERING PHYSICIAN: * Ruddy Gates *READING PHYSICIAN: * Cassia, *BACCARAT DEALER: * Tena Russo [facility] INDICATIONS: CHF. CONCLUSIONS SUMMARY: 1. Left [...] 5.4 cm 4.2 (more content not included)... [facility] CARDIOLOGY Karan Antony MD - 03/20/2022 TRANSTHORACIC ECHOCARDIOGRAM PATIENT: Megan Nascimento STUDY DATE: 03/20/2022 : 1940 AGE: 81 HT/WT: 170.2 cm (67 77.1 kg in) (169.6 lb) GENDER: M BP: 116 / 64 LOCATION: [facility] STATUS: *ORDERING PHYSICIAN: * Ruddy Gates *READING PHYSICIAN: * Cassia, *BACCARAT DEALER: * eTna Russo [facility] INDICATIONS: CHF. CONCLUSIONS SUMMARY: 1. Left [...] LV end-diastolic volu (more content not included)... [employer] Work Phone: Echo 2D Doppler ColorOrdered By: Karan Antony on 03-20-2022 [employer] Work Phone: Echo Complete w/wo Contrasto n 03-20-2022 Echo Complete w/wo Contrast Patient Name: MEGAN NASCIMENTO Ultrasound ACCESSION EXAM DATE/TIME PROCEDURE ORDERING PROVIDER [id number] 03/20/2022 11:41 EDT Echo Complete w/wo MD ANNA, RUDDY Gonzalez Contrast Reason For Exam (Echo Complete w/wo Contrast) chf Report TRANSTHORACIC ECHOCARDIOGRAM PATIENT: Megan Nascimento STUDY DATE: 03/20/2022 : 1940 AGE: 81 HT/WT: 170.2 cm (67 77.1 kg in) (169.6 lb) GENDER: M BP: 116 / 64 LOCATION: [facility] PATIENT Outpatient [facility] STATUS: *ORDERING PHYSICIAN: * Ruddy Gates *READING PHYSICIAN: * Cassia, *BACCARAT DEALER: * Tena MAYORGA INDICATIONS: CHF. CONCLUSIONS SUMMARY: [...] PW th (more content not included)... Normal [facility] Basophil percentageon 2021 Bilirubin [Mass/Vol] 0.40 mg/dL 0.20-1.00 [facility] Work Phone: Comment on above: For patients on eltr ombopag therapy, use of Dimension [place] TBIL is not recommended. Chloride [Moles/Vol] 97 mmol/L 98-107 [facility] Work Phone: Cholesterol [Mass/Vol] 219 mg/dL <200 [facility] Work Phone: Comment on above: <200 mg/dL Desirable 200-240 mg/dL Borderline >240 mg/dL High Risk Glucose [Mass/Vol] 140 mg/dL 74-106 [facility] Work Phone: Comment on above: Fasting Glucose resu lt greater than or equal to 126 mg/dL suggests DIABETES MELLITUS per A.D.A. criteria. Potassium [Moles/Vol] 3.8 mmol/L 3.5-5.1 [facility] Work Phone: Protein [Mass/Vol] 7.6 g/dL 6.4-8.2 [facility] Work Phone: Sodium [Moles/Vol] 137 mmol/L 136-145 [facility] Work Phone: Triglyceride [Mass/Vol] 190 mg/dL <199 [facility] Work Phone: Comment on above: The drugs N-Acetylcy steine and Metamizole may falsely depress this assay.Serum Triglycerides Reference Interval Normal <150 mg/dL Borderline high 150 - 199 mg/dL High 200 - 499 mg/dL Very High > or = 500 mg/dL Laboratory - Chemistry and C hemistry - challengeon 10-25-2021 ALP [Catalytic activity/Vol] 108 U/L 45-117 [facility] Work Phone: ALT [Catalytic activity/Vol] 25 U/L 16-61 [facility] Work Phone: CO2 [Moles/Vol] 34.0 mmol/L 21.0-32.0 [facility] Work Phone: Free T4 [Mass/Vol] 0.88 ng/dL 0.76-1.46 [facility] Work Phone: Globulin (S) [Mass/Vol] 4.0 g/dL 2.2-4.2 [facility] Work Phone: Urea nitrogen/Creatinine [Mass ratio] 21.8 mg/mg 10-20 [facility] Work Phone: No Panel Informationon 10-25 Estimated GFR (MDRD) Amer 28 mL/min >60 [facility] Work Phone: Comment on above: GFR Calc Estimated GFR (MDRD) Non-Af Amer 23 mL/min >60 [facility] Work Phone: Comment on above: Non- GFR Calc Free Triiodothyronine (T3) pg/dL 1.6 pg/mL 2.18-3.98 [facility] Work Phone: Thyroid Stimulating Hormone (TSH) 2.36 uIU/mL 0.358-3.74 [facility] Work Phone: Serum or plasma albumin geena urement (mass/volume)on 10-25-2021 Albumin [Mass/Vol] 3.6 g/dL 3.2-5.0 [facility] Work Phone: Serum or plasma albumin/glob ulin mass ratioon 10-25-2021 Albumin/Globulin [Mass ratio] 0.9 {ratio} 0.9-2.4 [facility] Work Phone: Serum or plasma calcium geena urement (mass/volume)on 10-25-2021 Calcium [Mass/Vol] 8.7 mg/dL 8.5-10.1 [facility] Work Phone: Serum or plasma cholesterol in HDL measurement (mass/volume)on 10-25-2021 Cholesterol in HDL [Mass/Vol] 44 mg/dL >40 [facility] Work Phone: Comment on above: The drugs N-Acetylcy steine and Metamizole may falsely depress this assay. Reference Range HDL <40 mg/dL Low HDL Cholesterol HDL >or= 60 mg/dL High HDL Cholesterol Serum or plasma cholesterol in VLDL measurement (mass/volume)on 10-25-2021 Cholesterol in VLDL [Mass/Vol] 38 mg/dL 5-40 [facility] Work Phone: Serum or plasma creatinine m easurement (mass/volume)on 10-25-2021 Creatinine [Mass/Vol] 2.84 mg/dL 0.70-1.30 [facility] Work Phone: Comment on above: The validity of the calculated GFR & GFRAA in patients over 70 years has not been determined. Clinical correlation is essential. Serum or plasma low density lipoprotein (LDL) cholesterol measurement (mass/volume)on 10-25-2021 Cholesterol in LDL [Mass/Vol] 137 mg/dL 0-130 [facility] Work Phone: Serum or plasma urea nitroge n measurement (mass/volume)on 10-25-2021 Urea nitrogen [Mass/Vol] 62 mg/dL 7-18 [facility] Work Phone: Thin prep Papanicolaou smear with manual screeningon 10-25-2021 Thin prep Papanicolaou smear with manual screening 25 U/L 15-37 [facility] Work Phone: Thin prep Papanicolaou smear with manual screening 6 5-15 [facility] Work Phone: Absolute lymphocyte counton 08-31-2021 Lymphocytes Auto (Unsp spec) [#/Vol] 1.08 10*3/uL 0.83-4.51 [facility] Work Phone: Basophil percentageon 2021 Basophils/100 WBC (Bld) 1.4 % 0-1 [facility] Work Phone: Eosinophils/100 WBC (Bld) 8.4 % 0-5 [facility] Work Phone: Neutrophils (Bld) [#/Vol] 3.8 10*3/uL 2.0-7.7 [facility] Work Phone: Neutrophils/100 WBC (Bld) 60.7 % 47-70 [facility] Work Phone: WBC (Bld) [#/Vol] 6.3 10*3/uL 4.4-11.0 [facility] Work Phone: Blood erythrocytes count (nu mber/volume)on 08-31-2021 RBC (Bld) [#/Vol] 3.44 10*6/uL 4.6-6.2 [facility] Work [facility]: Blood hemoglobin measurement (mass/volume)on 08-31-2021 Hemoglobin (Bld) [Mass/Vol] 10.1 g/dL 13.0-16.5 [facility] Work Phone: [phone] Blood lymphocytes/100 leukoc yteson 08-31-2021 Lymphocytes/100 WBC (Bld) 17.2 % 19-41 [facility] Work Phone: Blood monocytes/100 leukocyt eson 08-31-2021 Monocytes/100 WBC (Bld) 11.8 % 0-10 [facility] Work Phone: Blood platelet mean volumeon 08-31-2021 Platelet mean volume (Bld) [Entitic vol] 9.8 fL 6.2-12.0 [facility] Work Phone: Determination of erythrocyte mean corpuscular volume (MCV)on 08-31-2021 MCV (RBC) [Entitic vol] 92.4 fL 80-94 [facility] Work Phone: Hematocrit Auto (Bld) [Volum e fraction]on 08-31-2021 Hematocrit (Bld) [Volume fraction] 31.8 % 40-54 [facility] Work Phone: Laboratory - Hematology and Cell countson 08-31-2021 Erythrocyte distribution width (RBC) [Entitic vol] 49.4 fL 35.1-43.9 [facility] Work Phone: Erythrocyte distribution width (RBC) [Ratio] 14.6 % 11.6-14.6 [facility] Work Phone: Immature granulocytes/100 WBC (Bld) 0.500 % 0.0-0.9 [facility] Work Phone: Comment on above: IG% - Immature Granu locytes (promyelocytes, myelocytes and metamyelocytes) > 1% indicates that a LEFT SHIFT is Present. MCH (RBC) [Entitic mass] 29.4 pg 27.0-32.0 [facility] Work Phone: Nucleated RBC/100 WBC (Bld) [Ratio] 0 % 0-5 [facility] Work Phone: MCHC Auto (RBC) [Mass/Vol]on 08-31-2021 MCHC (RBC) [Mass/Vol] 31.8 g/dL 32-36 [facility] Work Phone: Platelets bldon 08-31-2021 Platelets (Bld) [#/Vol] 320 10*3/uL 150-450 [facility] Work Phone: Absolute lymphocyte counton 08-22-2021 Lymphocytes Auto (Unsp spec) [#/Vol] 1.00 10*3/uL 0.83-4.51 [facility] Work Phone: Basophil percentageon 2021 Basophils/100 WBC (Bld) 0.6 % 0-1 [facility] Work Phone: [phone] Chloride [Moles/Vol] 96 mmol/L 98-107 [facility] Work Phone: Eosinophils/100 WBC (Bld) 2.1 % 0-5 [facility] Work Phone: Glucose [Mass/Vol] 106 mg/dL 74-106 [facility] Work Phone: Comment on above: Fasting Glucose resu lt from 100 to 125 mg/dL suggests IMPAIRED HOMEOSTASIS per A.D.A. criteria. Neutrophils (Bld) [#/Vol] 6.2 10*3/uL 2.0-7.7 [facility] Work Phone: Neutrophils/100 WBC (Bld) 77.2 % 47-70 [facility] Work Phone: Potassium [Moles/Vol] 3.3 mmol/L 3.5-5.1 [facility] Work Phone: Sodium [Moles/Vol] 136 mmol/L 136-145 [facility] Work Phone: WBC (Bld) [#/Vol] 8.0 10*3/uL 4.4-11.0 [facility] Work Phone: Blood erythrocytes count (nu mber/volume)on 08-22-2021 RBC (Bld) [#/Vol] 3.10 10*6/uL 4.6-6.2 [facility] Work Phone: Blood hemoglobin measurement (mass/volume)on 08-22-2021 Hemoglobin (Bld) [Mass/Vol] 9.1 g/dL 13.0-16.5 [facility] Work Phone: Blood lymphocytes/100 leukoc yteson 08-22-2021 Lymphocytes/100 WBC (Bld) 12.5 % 19-41 [facility] Work Phone: Blood monocytes/100 leukocyt eson 08-22-2021 Monocytes/100 WBC (Bld) 7.0 % 0-10 [facility] Work Phone: Blood platelet mean volumeon 08-22-2021 Platelet mean volume (Bld) [Entitic vol] 8.8 fL 6.2-12.0 [facility] Work Phone: Determination of erythrocyte mean corpuscular volume (MCV)on 08-22-2021 MCV (RBC) [Entitic vol] 88.4 fL 80-94 [facility] Work Phone: Glucose Glucometer (BldC) [M ass/Vol]on 08-22-2021 Glucose [Mass/Vol] 119 mg/dL 70-110 [facility] Work Phone: Comment on above: MANAGEMENT OF PATIEN T CARE PER NURSING PROTOCOL Hematocrit Auto (Bld) [Volum e fraction]on 08-22-2021 Hematocrit (Bld) [Volume fraction] 27.4 % 40-54 [facility] Work Phone: Laboratory - Chemistry and C hemistry - challengeon 08-22-2021 CO2 [Moles/Vol] 29.0 mmol/L 21.0-32.0 [facility] Work Phone: Urea nitrogen/Creatinine [Mass ratio] 40.1 mg/mg 10-20 [facility] Work Phone: Laboratory - Hematology and Cell countson 08-22-2021 Erythrocyte distribution width (RBC) [Entitic vol] 52.3 fL 35.1-43.9 [facility] Work Phone: Erythrocyte distribution width (RBC) [Ratio] 16.7 % 11.6-14.6 [facility] Work Phone: Immature granulocytes/100 WBC (Bld) 0.600 % 0.0-0.9 [facility] Work Phone: Comment on above: IG% - Immature Granu locytes (promyelocytes, myelocytes and metamyelocytes) > 1% indicates that a LEFT SHIFT is Present. MCH (RBC) [Entitic mass] 29.4 pg 27.0-32.0 [facility] Work Phone: Nucleated RBC/100 WBC (Bld) [Ratio] 0 % 0-5 [facility] Work Phone: MCHC Auto (RBC) [Mass/Vol]on 08-22-2021 MCHC (RBC) [Mass/Vol] 33.2 g/dL 32-36 [facility] Work Phone: No Panel Informationon 08-22 Estimated Creatinine Clearance Calc 17.52 ml/min [facility] Work Phone: Estimated GFR (MDRD) Amer 26 mL/min >60 [facility] Work Phone: Comment on above: GFR Calc Estimated GFR (MDRD) Non-Af Amer 21 mL/min >60 [facility] Work Phone: Comment on above: Non- GFR Calc Platelets bldon 08-22-2021 Platelets (Bld) [#/Vol] 301 10*3/uL 150-450 [facility] Work Phone: Serum or plasma calcium geena urement (mass/volume)on 08-22-2021 Calcium [Mass/Vol] 8.8 mg/dL 8.5-10.1 [facility] Work Phone: Serum or plasma creatinine m easurement (mass/volume)on 08-22-2021 Creatinine [Mass/Vol] 3.04 mg/dL 0.70-1.30 [facility] Work Phone: Comment on above: The validity of the calculated GFR & GFRAA in patients over 70 years has not been determined. Clinical correlation is essential. Serum or plasma urea nitroge n measurement (mass/volume)on 08-22-2021 Urea nitrogen [Mass/Vol] 122 mg/dL 7-18 [facility] Work Phone: Comment on above: Critical Result(s) C alled at: 04:54:27 08/22/2021 by: Prem Pitt TO Tabatha ISLAS RN (ICU) Results read back by same. Thin prep Papanicolaou smear with manual screeningon 08-22-2021 Thin prep Papanicolaou smear with manual screening 11 5-15 [facility] Work Phone: Blood manual differential co mment interpretation (narrative result)on 08-21-2021 Manual differential comment Raymond (Bld) [Interp] SCANNED [facility] Work Phone: Hypochromatic red blood cell detectionon 08-21-2021 Hypochromia Ql (Bld) 2+ [facility] Work Phone: No Panel Informationon 08-21 SARS-CoV-2 Antigen (Rapid) [facility] Work Phone: Review by pathologiston Pathologist review Raymond (Unsp spec) [Interp] Reviewed [facility] Work Phone: Comment on above: Previous reported re sult: Jossy floyd Edited by: PILLO on 08/22/21:0934Macrocytic anemia.Lymphopenia, relativeClinical correlation suggested.Art Bal D.O. 08/22/21 AMENDED REPORT 08/22/21 0934 PATH REV previously reported as: Jossy floyd Basophil percentageon 2021 Basophil percentage 0-5 SEEN /hpf [facility] Work Phone: Bilirubin [Mass/Vol] 0.40 mg/dL 0.20-1.00 [facility] Work Phone: Comment on above: For patients on eltr ombopag therapy, use of Dimension [place] TBIL is not recommended. Protein [Mass/Vol] 7.0 g/dL 6.4-8.2 [facility] Work Phone: Bilirubin Test strip Ql (U)o n 08-20-2021 Bilirubin Ql (U) Negative Negative [facility] Work Phone: Blood naomi cells detection b y light microscopyon 08-20-2021 Naomi cells LM Ql (Bld) 1+ [facility] Work Phone: Blood platelet adequacy dete ction by light microscopyon 08-20-2021 Platelets LM Ql (Bld) SLT INC ADEQ [facility] Work Phone: Blood polychromasia detectio n by light microscopyon 08-20-2021 Polychromasia LM Ql (Bld) RARE [facility] Work Phone: INR in Blood by Coagulation assayon 08-20-2021 INR Coag (Bld) [Relative time] 1.5 {INR} [facility] Work Phone: Ketones Test strip Ql (U)on 08-20-2021 Ketones Ql (U) Negative Negative [facility] Work Phone: Laboratory - Chemistry and C hemistry - challengeon 08-20-2021 ALP [Catalytic activity/Vol] 118 U/L 45-117 [facility] Work Phone: ALT [Catalytic activity/Vol] 20 U/L 16-61 [facility] Work Phone: Globulin (S) [Mass/Vol] 4.2 g/dL 2.2-4.2 [facility] Work Phone: Laboratory - Coagulationon 0 08-20-2021 PT Coag (PPP) [Time] 17.6 s 11.7-14.9 [facility] Work Phone: Laboratory - Hematology and Cell countson 08-20-2021 Anisocytosis Ql (Bld) 1+ [facility] Work Phone: Lower GI hemoglobin IA Ql (S tl)on 08-20-2021 Stool Occult Blood (BRAD) Positive [facility] Work Phone: Macrocytes detectionon 08-20 Macrocytes Ql (Bld) 1+ [facility] Work Phone: Mucus LM Ql (Urine sed)on Mucus Ql (Urine sed) 0 SEEN /hpf [facility] Work Phone: Nitrite Test strip Ql (U)on 08-20-2021 Nitrite Ql (U) Negative Negative [facility] Work Phone: No Panel Informationon 08-20 Troponin I High Sensitivity 31 pg/mL 3.0-78.0 [facility] Work Phone: Comment on above: Please Note: [place] t Units and Gender Specific Reference Ranges. For more information see Policy Stat Procedure [place] High Sensitivity Troponin (TNIH) and attachments. Ovalocyte detectionon 2021 Ovalocytes LM Ql (Bld) RARE [facility] Work Phone: Protein Test strip Ql (U)on 08-20-2021 Protein Ql (U) Negative Negative [facility] Work Phone: RBC morphologyon 08-20-2021 RBC morphology finding Nom (Bld) N CHROM NORMAL NORM C&C [facility] Work Phone: Serum or plasma albumin geena urement (mass/volume)on 08-20-2021 Albumin [Mass/Vol] 2.8 g/dL 3.2-5.0 [facility] Work Phone: Serum or plasma albumin/glob ulin mass ratioon 08-20-2021 Albumin/Globulin [Mass ratio] 0.7 {ratio} 0.9-2.4 [facility] Work Phone: Squamous epithelial cells de tection in urine sediment by light microscopyon 08-20-2021 Epithelial cells.squamous LM Ql (Urine sed) 0 SEEN /hpf [facility] Work Phone: Target cell detectionon 07-23 Target cells LM Ql (Bld) RARE [facility] Work Phone: Thin prep Papanicolaou smear with manual screeningon 08-20-2021 Thin prep Papanicolaou smear with manual screening 43 U/L 15-37 [facility] Work Phone: Comment on above: Moderate Hemolysis, Result may be falsely increased. Urine blood detectionon 07-23 RBC Ql (U) Negative Negative [facility] Work Phone: RBC Ql (U) 0 SEEN /hpf [facility] Work Phone: Urine clarityon 08-20-2021 Clarity (U) Sl. Cloudy Clear [facility] Work Phone: Urine color determinationon 08-20-2021 Color (U) Yellow Yellow [facility] Work Phone: Urine glucose detectionon Glucose Ql (U) Normal mg/dl Normal [facility] Work Phone: Urine leukocyte esterase det ection by dipstickon 08-20-2021 Leukocyte esterase Test strip Ql (U) 25 /ul Negative [facility] Work Phone: Urine pHon 08-20-2021 pH (U) 5.0 [pH] [facility] Work Phone: Urine sediment bacteria coun t by microscopy (number/high power field)on 08-20-2021 Bacteria LM.HPF (Urine sed) [#/Area] 0 /[HPF] None Seen [facility] Work Phone: Urine specific gravity measu rementon 08-20-2021 Specific gravity (U) [Rel density] 1.010 [facility] Work Phone: Urobilinogen Auto test strip Ql (U)on 08-20-2021 Urobilinogen Ql (U) Normal mg/dl Normal [facility] Work Phone: Basophil percentageon 2021 Chloride [Moles/Vol] 90 mmol/L 98-107 [facility] Work Phone: Glucose [Mass/Vol] 120 mg/dL 74-106 [facility] Work Phone: Comment on above: Fasting Glucose resu lt from 100 to 125 mg/dL suggests IMPAIRED HOMEOSTASIS per A.D.A. criteria. Potassium [Moles/Vol] 4.1 mmol/L 3.5-5.1 [facility] Work Phone: Sodium [Moles/Vol] 131 mmol/L 136-145 [facility] Work Phone: Laboratory - Chemistry and C hemistry - challengeon 08-09-2021 CO2 [Moles/Vol] 31.0 mmol/L 21.0-32.0 [facility] Work Phone: Urea nitrogen/Creatinine [Mass ratio] 36.8 mg/mg 05-09 [facility] Work Phone: No Panel Informationon 08-09 Estimated GFR (MDRD) Amer 25 mL/min >60 [facility] Work Phone: Comment on above: GFR Calc Estimated GFR (MDRD) Non-Af Amer 20 mL/min >60 [facility] Work Phone: Comment on above: Non- GFR Calc Serum or plasma calcium geena urement (mass/volume)on 08-09-2021 Calcium [Mass/Vol] 9.6 mg/dL 8.5-10.1 [facility] Work Phone: Serum or plasma creatinine m easurement (mass/volume)on 08-09-2021 Creatinine [Mass/Vol] 3.15 mg/dL 0.70-1.30 [facility] Work Phone: Comment on above: The validity of the calculated GFR & GFRAA in patients over 70 years has not been determined. Clinical correlation is essential. Serum or plasma urea nitroge n measurement (mass/volume)on 08-09-2021 Urea nitrogen [Mass/Vol] 116 mg/dL 7-18 [facility] Work Phone: Comment on above: Critical Result(s) C alled at: 10:47:15 08/09/2021 by: Claudine King. Results read back by same. Thin prep Papanicolaou smear with manual screeningon 08-09-2021 Thin prep Papanicolaou smear with manual screening 10 5-15 [facility] Work Phone: Absolute lymphocyte counton 07-09-2021 Lymphocytes Auto (Unsp spec) [#/Vol] 1.02 10*3/uL 0.83-4.51 [facility] Work Phone: Basophil percentageon 2020 Eosinophils/100 WBC (Bld) 10.9 % 0-5 [facility] Work Phone: Neutrophils (Bld) [#/Vol] 3.1 10*3/uL 2.0-7.7 [facility] Work Phone: [phone] WBC (Bld) [#/Vol] 5.2 10*3/uL 4.4-11.0 [facility] Work Phone: Blood erythrocytes count (nu mber/volume)on 07-09-2021 RBC (Bld) [#/Vol] 2.75 10*6/uL 4.6-6.2 [facility]: Blood hemoglobin measurement (mass/volume)on 07-09-2021 Hemoglobin (Bld) [Mass/Vol] 8.0 g/dL 13.0-16.5 [facility] Work Phone: Blood lymphocytes/100 leukoc yteson 07-09-2021 Lymphocytes/100 WBC (Bld) 19.8 % 19-41 [facility] Work Phone: [phone] Blood monocytes/100 leukocyt eson 07-09-2021 Monocytes/100 WBC (Bld) 8.2 % 0-10 [facility] Work Phone: Blood platelet mean volumeon 07-09-2021 Platelet mean volume (Bld) [Entitic vol] 10.3 fL 6.2-12.0 [facility] Work Phone: Determination of erythrocyte mean corpuscular volume (MCV)on 07-09-2021 MCV (RBC) [Entitic vol] 92.7 fL 80-94 [facility] Work Phone: Hematocrit Auto (Bld) [Volum e fraction]on 07-09-2021 Hematocrit (Bld) [Volume fraction] 25.5 % 40-54 [facility] Work Phone: Laboratory - Hematology and Cell countson 07-09-2021 Basophils/100 WBC (Unsp spec) 1.0 % 0-1 [facility] Work Phone: Erythrocyte distribution width (RBC) [Entitic vol] 53.7 fL 35.1-43.9 [facility] Work Phone: Erythrocyte distribution width (RBC) [Ratio] 15.8 % 11.6-14.6 [facility] Work Phone: Immature granulocytes/100 WBC (Bld) 0.400 % 0.0-0.9 [facility] Work Phone: Comment on above: IG% - Immature Granu locytes (promyelocytes, myelocytes and metamyelocytes) > 1% indicates that a LEFT SHIFT is Present. MCH (RBC) [Entitic mass] 29.1 pg 27.0-32.0 [facility] Work Phone: Neutrophils/100 WBC (Bld) 59.7 % 47-70 [facility] Work Phone: Nucleated RBC/100 WBC (Bld) [Ratio] 0 % 0-5 [facility] Work Phone: MCHC Auto (RBC) [Mass/Vol]on 07-09-2021 MCHC (RBC) [Mass/Vol] 31.4 g/dL 32-36 [facility] Work Phone: Platelets bldon 07-09-2021 Platelets (Bld) [#/Vol] 276 10*3/uL 150-450 [facility] Work Phone: Basic Metabolic Panelon 11-0 -2020 Anion gap [Moles/Vol] 5 mmol/L Normal 3-13 [facility] Comment on above: Order Comment: SLIGH T HEMOLYSIS Performed By: #### L IPD2, BMP3, MG3 #### [facility] [address] [place] [address] Calcium [Mass/Vol] 9.4 mg/dL Normal 8.4-10.4 [facility] Comment on above: Order Comment: SLIGH T HEMOLYSIS Performed By: #### L IPD2, BMP3, MG3 #### [facility] [address] [place] [address] CO2 [Moles/Vol] 36 mmol/L High 22-30 [facility] Comment on above: Order Comment: SLIGH T HEMOLYSIS Performed By: #### L IPD2, BMP3, MG3 #### [facility] [address] [place] [address] Creatinine [Mass/Vol] 2.03 mg/dL High 0.52-1.25 [facility] Comment on above: Order Comment: SLIGH T HEMOLYSIS Performed By: #### L IPD2, BMP3, MG3 #### [facility] [address] [place] [address] GFR/1.73 sq M.predicted among blacks MDRD (S/P/Bld) [Vol rate/Area] 34.4 mL/min/{1.73_m2} Abnormal >60 [facility] Comment on above: Order Comment: SLIGH T HEMOLYSIS Performed By: #### L IPD2, BMP3, MG3 #### [facility] [address] [place] [address] GFR/1.73 sq M.predicted among non-blacks MDRD (S/P/Bld) [Vol rate/Area] 29.7 mL/min/{1.73_m2} Abnormal >60 [facility] Comment on above: Order Comment: SLIGH [...] By: #### L IPD2, BMP3, MG3 #### [facility] [address] [place] [address] Glucose [Mass/Vol] 97 mg/dL Normal 70-100 [facility] Comment on above: Order Comment: SLIGH T HEMOLYSIS Performed By: #### L IPD2, BMP3, MG3 #### [facility] [address] [place] [address] Urea nitrogen [Mass/Vol] 80 mg/dL High 7-17 [facility] Comment on above: Order Comment: SLIGH T HEMOLYSIS Performed By: #### L IPD2, BMP3, MG3 #### [facility] [address] [place] [address] Chloride [Moles/Vol] 98 mmol/L Normal 98-107 [facility] Comment on above: Order Comment: SLIGH T HEMOLYSIS Performed By: #### L IPD2, BMP3, MG3 #### [facility] [address] [place] [address] Potassium [Moles/Vol] 4.0 mmol/L Normal 3.5-5.1 [facility] Comment on above: Order Comment: SLIGH T HEMOLYSIS Performed By: #### L IPD2, BMP3, MG3 #### [facility] [address] [place] [address] Sodium [Moles/Vol] 139 mmol/L Normal 135-145 [facility] Comment on above: Order Comment: SLIGH T HEMOLYSIS Performed By: #### L IPD2, BMP3, MG3 #### [facility] [address] [place] [address] Glucose,Bedsideon 05-21-2021 Glucose [Mass/Vol] 154 mg/dL High 70-100 [facility] Comment on above: Result Comment: Test performed by glucose meter. Results may be 10%-15% lower than serum/plasma values. (CLIA ID [id number]) Performed By: #### L IPD2, BMP3, MG3 #### [facility] [address] [place] [address] Glucose [Mass/Vol] 96 mg/dL Normal 70-100 [facility] Comment on above: Result Comment: Test performed by glucose meter. Results may be 10%-15% lower than serum/plasma values. (CLIA ID [id number]) Performed By: #### B GLU #### [facility] [address] [place] [address] Hemogram w/ Autodiffon 05-21 Abs Baso Cnt 0.0 10*3/uL Normal 0.0-0.2 [facility] Comment on above: Performed By: #### B NP3, TROPN, BMP3, HEMDF #### [facility] [address] [place] [address] Abs Neutrophile Cnt 2.1 10*3/uL Normal 1.8-7.0 [facility] Comment on above: Performed By: #### B NP3, TROPN, BMP3, HEMDF #### [facility] [address] [place] [address] Basophils/100 WBC (Bld) 0.5 % Normal 0.0-2.0 [facility] Comment on above: Performed By: #### B NP3, TROPN, BMP3, HEMDF #### [facility] [address] [place] [address] Eosinophils (Bld) [#/Vol] 0.4 10*3/uL Normal 0.0-0.5 [facility] Comment on above: Performed By: #### B NP3, TROPN, BMP3, HEMDF #### [facility] [address] [place] [address] Eosinophils/100 WBC (Bld) 11.8 % High 1.0-6.0 [facility] Comment on above: Performed By: #### B NP3, TROPN, BMP3, HEMDF #### [facility] [address] [place] [address] Erythrocyte distribution width (RBC) [Ratio] 18.6 % High 11.5-14.5 [facility] Comment on above: Performed By: #### B NP3, TROPN, BMP3, HEMDF #### [facility] [address] [place] [address] Granulocytes/100 WBC (Bld) 57.5 % Normal 40.0-80.0 [facility] Comment on above: Performed By: #### B NP3, TROPN, BMP3, HEMDF #### [facility] [address] [place] [address] Hematocrit (Bld) [Volume fraction] 32.7 % Low 40.0-52.0 [facility] Comment on above: Performed By: #### B NP3, TROPN, BMP3, HEMDF #### [facility] [address] [place] [address] Hemoglobin (Bld) [Mass/Vol] 10.9 g/dL Low 13.0-18.0 [facility] Comment on above: Performed By: #### B NP3, TROPN, BMP3, HEMDF #### [facility] [address] [place] [address] Lymphocytes (Bld) [#/Vol] 0.7 10*3/uL Low 1.0-4.3 [facility] Comment on above: Performed By: #### B NP3, TROPN, BMP3, HEMDF #### [facility] [address] [place] [address] Lymphocytes/100 WBC (Bld) 19.1 % Low 20.0-40.0 [facility] Comment on above: Performed By: #### B NP3, TROPN, BMP3, HEMDF #### [facility] [address] [place] [address] MCH (RBC) [Entitic mass] 30.0 pg Normal 26.0-34.0 [facility] Comment on above: Performed By: #### B NP3, TROPN, BMP3, HEMDF #### [facility] [address] [place] [address] MCHC 33.2 % Normal 32.0-36.0 [facility] Comment on above: Performed By: #### B NP3, TROPN, BMP3, HEMDF #### [facility] [address] [place] [address] MCV (RBC) [Entitic vol] 90.4 fL Normal 80.0-98.0 [facility] Comment on above: Performed By: #### B NP3, TROPN, BMP3, HEMDF #### [facility] [address] [place] [address] Monocytes (Bld) [#/Vol] 0.4 10*3/uL Normal 0.0-0.8 [facility] Comment on above: Performed By: #### B NP3, TROPN, BMP3, HEMDF #### [facility] [address] [place] [address] Monocytes/100 WBC (Bld) 11.1 % High 2.0-10.0 [facility] Comment on above: Performed By: #### B NP3, TROPN, BMP3, HEMDF #### [facility] [address] [place] [address] Platelet mean volume (Bld) [Entitic vol] 10.0 fL Normal 7.4-10.4 [facility] Comment on above: Performed By: #### B NP3, TROPN, BMP3, HEMDF #### [facility] [address] [place] [address] Platelets (Bld) [#/Vol] 295 10*3/uL Normal 140-440 [facility] Comment on above: Performed By: #### B NP3, TROPN, BMP3, HEMDF #### [facility] [address] [place] [address] RBC (Bld) [#/Vol] 3.62 10*6/uL Low 4.40-5.90 [facility] Comment on above: Performed By: #### B NP3, TROPN, BMP3, HEMDF #### [facility] [address] [place] [address] WBC (Bld) [#/Vol] 3.7 10*3/uL Normal 3.6-10.7 [facility] Comment on above: Performed By: #### B NP3, TROPN, BMP3, HEMDF #### [facility] [address] [place] [address] Basic Metabolic Panelon 10-3 Anion gap [Moles/Vol] 9 mmol/L Normal 3-13 [facility] Comment on above: Performed By: #### B GLU #### [facility] [address] [place] [address] Calcium [Mass/Vol] 9.4 mg/dL Normal 8.4-10.4 [facility] Comment on above: Performed By: #### B GLU #### [facility] [address] [place] [address] CO2 [Moles/Vol] 33 mmol/L High 22-30 [facility] Comment on above: Performed By: #### B GLU #### [facility] [address] [place] [address] Creatinine [Mass/Vol] 2.21 mg/dL High 0.52-1.25 [facility] Comment on above: Performed By: #### B GLU #### [facility] [address] [place] [address] GFR/1.73 sq M.predicted among blacks MDRD (S/P/Bld) [Vol rate/Area] 31.0 mL/min/{1.73_m2} Abnormal >60 [facility] Comment on above: Performed By: #### B GLU #### [facility] [address] [place] [address] GFR/1.73 sq M.predicted among non-blacks MDRD (S/P/Bld) [Vol rate/Area] 26.8 mL/min/{1.73_m2} Abnormal >60 [facility] Comment on above: Result Comment: KDIG [...] secretion. Performed By: #### B GLU #### [facility] [address] [place] [address] Glucose [Mass/Vol] 101 mg/dL High 70-100 [facility] Comment on above: Performed By: #### B GLU #### [facility] [address] [place] [address] Urea nitrogen [Mass/Vol] 72 mg/dL High 7-17 [facility] Comment on above: Performed By: #### B GLU #### [facility] [address] [place] [address] Chloride [Moles/Vol] 97 mmol/L Low 98-107 [facility] Comment on above: Performed By: #### B GLU #### [facility] [address] [place] [address] Potassium [Moles/Vol] 3.9 mmol/L Normal 3.5-5.1 [facility] Comment on above: Performed By: #### B GLU #### [facility] [address] [place] [address] Sodium [Moles/Vol] 140 mmol/L Normal 135-145 [facility] Comment on above: Performed By: #### B GLU #### [facility] [address] [place] [address] Glucose,Bedsideon 05-20-2021 Glucose [Mass/Vol] 153 mg/dL High 70-100 [facility] Comment on above: Result Comment: Test performed by glucose meter. Results may be 10%-15% lower than serum/plasma values. (CLIA ID [id number]) Performed By: #### L IPD2, BMP3, MG3 #### [facility] [address] [place] [address] Glucose [Mass/Vol] 148 mg/dL High 70-100 [facility] Comment on above: Result Comment: Test performed by glucose meter. Results may be 10%-15% lower than serum/plasma values. (CLIA ID [id number]) Performed By: #### B GLU #### [facility] [address] [place] [address] Glucose [Mass/Vol] 125 mg/dL High 70-100 [facility] Comment on above: Result Comment: Test performed by glucose meter. Results may be 10%-15% lower than serum/plasma values. (CLIA ID [id number]) Performed By: #### B GLU #### [facility] [address] [place] [address] Glucose [Mass/Vol] 99 mg/dL Normal 70-100 [facility] Comment on above: Result Comment: Test performed by glucose meter. Results may be 10%-15% lower than serum/plasma values. (CLIA ID [id number]) Performed By: #### L IPD2, BMP3, MG3 #### [facility] [address] [place] [address] Hemogram w/ Autodiffon 05-20 Abs Baso Cnt 0.1 10*3/uL Normal 0.0-0.2 [facility] Comment on above: Performed By: #### B GLU #### [facility] [address] [place] [address] Abs Neutrophile Cnt 2.5 10*3/uL Normal 1.8-7.0 [facility] Comment on above: Performed By: #### B GLU #### [facility] [address] [place] [address] Basophils/100 WBC (Bld) 1.7 % Normal 0.0-2.0 [facility] Comment on above: Performed By: #### B GLU #### [facility] [address] [place] [address] Eosinophils (Bld) [#/Vol] 0.5 10*3/uL Normal 0.0-0.5 [facility] Comment on above: Performed By: #### B GLU #### [facility] [address] [place] [address] Eosinophils/100 WBC (Bld) 11.1 % High 1.0-6.0 [facility] Comment on above: Performed By: #### B GLU #### [facility] [address] [place] [address] Erythrocyte distribution width (RBC) [Ratio] 18.1 % High 11.5-14.5 [facility] Comment on above: Performed By: #### B GLU #### [facility] [address] [place] [address] Granulocytes/100 WBC (Bld) 55.7 % Normal 40.0-80.0 [facility] Comment on above: Performed By: #### B GLU #### [facility] [address] [place] [address] Hematocrit (Bld) [Volume fraction] 35.8 % Low 40.0-52.0 [facility] Comment on above: Performed By: #### B GLU #### [facility] [address] [place] [address] Hemoglobin (Bld) [Mass/Vol] 11.5 g/dL Low 13.0-18.0 [facility] Comment on above: Performed By: #### B GLU #### [facility] [address] [place] [address] Lymphocytes (Bld) [#/Vol] 0.9 10*3/uL Low 1.0-4.3 [facility] Comment on above: Performed By: #### B GLU #### [facility] [address] [place] [address] Lymphocytes/100 WBC (Bld) 19.8 % Low 20.0-40.0 [facility] Comment on above: Performed By: #### B GLU #### [facility] [address] [place] [address] MCH (RBC) [Entitic mass] 29.4 pg Normal 26.0-34.0 [facility] Comment on above: Performed By: #### B GLU #### [facility] [address] [place] [address] MCHC 32.1 % Normal 32.0-36.0 [facility] Comment on above: Performed By: #### B GLU #### [facility] [address] [place] [address] MCV (RBC) [Entitic vol] 91.5 fL Normal 80.0-98.0 [facility] Comment on above: Performed By: #### B GLU #### [facility] [address] [place] [address] Monocytes (Bld) [#/Vol] 0.5 10*3/uL Normal 0.0-0.8 [facility] Comment on above: Performed By: #### B GLU #### [facility] [address] [place] [address] Monocytes/100 WBC (Bld) 11.7 % High 2.0-10.0 [facility] Comment on above: Performed By: #### B GLU #### [facility] [address] [place] [address] Platelet mean volume (Bld) [Entitic vol] 8.5 fL Normal 7.4-10.4 [facility] Comment on above: Performed By: #### B GLU #### [facility] [address] [place] [address] Platelets (Bld) [#/Vol] 221 10*3/uL Normal 140-440 [facility] Comment on above: Performed By: #### B GLU #### [facility] [address] [place] [address] RBC (Bld) [#/Vol] 3.91 10*6/uL Low 4.40-5.90 [facility] Comment on above: Performed By: #### B GLU #### [facility] [address] [place] [address] WBC (Bld) [#/Vol] 4.4 10*3/uL Normal 3.6-10.7 [facility] Comment on above: Performed By: #### B GLU #### [facility] [address] [place] [address] Basic Metabolic Panelon 10-3 0-2020 Calcium [Mass/Vol] 9.6 mg/dL Normal 8.4-10.4 [facility] Comment on above: Performed By: #### B NP3, TROPN, BMP3, HEMDF #### [facility] [address] [place] [address] Glucose [Mass/Vol] 99 mg/dL Normal 70-100 [facility] Comment on above: Performed By: #### B NP3, TROPN, BMP3, HEMDF #### [facility] [address] [place] [address] Anion gap [Moles/Vol] 7 mmol/L Normal 3-13 [facility] Comment on above: Performed By: #### B NP3, TROPN, BMP3, HEMDF #### [facility] [address] [place] [address] CO2 [Moles/Vol] 32 mmol/L High 22-30 [facility] Comment on above: Performed By: #### B NP3, TROPN, BMP3, HEMDF #### [facility] [address] [place] [address] Creatinine [Mass/Vol] 2.35 mg/dL High 0.52-1.25 [facility] Comment on above: Performed By: #### B NP3, TROPN, BMP3, HEMDF #### [facility] [address] [place] [address] GFR/1.73 sq M.predicted among blacks MDRD (S/P/Bld) [Vol rate/Area] 28.8 mL/min/{1.73_m2} Abnormal >60 [facility] Comment on above: Performed By: #### B NP3, TROPN, BMP3, HEMDF #### [facility] [address] [place] [address] GFR/1.73 sq M.predicted among non-blacks MDRD (S/P/Bld) [Vol rate/Area] 24.8 mL/min/{1.73_m2} Abnormal >60 [facility] Comment on above: Result Comment: KDIG [...] #### B NP3, TROPN, BMP3, HEMDF #### [facility] [address] [place] [address] Urea nitrogen [Mass/Vol] 69 mg/dL High 7-17 [facility] Comment on above: Performed By: #### B NP3, TROPN, BMP3, HEMDF #### [facility] [address] [place] [address] Chloride [Moles/Vol] 98 mmol/L Normal 98-107 [facility] Comment on above: Performed By: #### B NP3, TROPN, BMP3, HEMDF #### [facility] [address] [place] [address] Potassium [Moles/Vol] 3.8 mmol/L Normal 3.5-5.1 [facility] Comment on above: Performed By: #### B NP3, TROPN, BMP3, HEMDF #### [facility] [address] [place] [address] Sodium [Moles/Vol] 138 mmol/L Normal 135-145 [facility] Comment on above: Performed By: #### B NP3, TROPN, BMP3, HEMDF #### [facility] [address] [place] [address] Glucose,Bedsideon 05-19-2021 Glucose [Mass/Vol] 124 mg/dL [facility] 70-100 [facility] Comment on above: Result Comment: Test performed by glucose meter. Results may be 10%-15% lower than serum/plasma values. (CLIA ID [id number]) Performed By: #### B GLU #### [facility] [address] [place] [address] Glucose [Mass/Vol] 126 mg/dL High 70-100 [facility] Comment on above: Result Comment: Test performed by glucose meter. Results may be 10%-15% lower than serum/plasma values. (CLIA ID [id number]) Performed By: #### B NP3, TROPN, BMP3, HEMDF #### [facility] [address] [place] [address] Glucose [Mass/Vol] 153 mg/dL [facility] 70-100 [facility] Comment on above: Result Comment: Test performed by glucose meter. Results may be 10%-15% lower than serum/plasma values. (CLIA ID [id number]) Performed By: #### L IPD2, BMP3, MG3 #### [facility] [address] [place] [address] Glucose [Mass/Vol] 87 mg/dL Normal 70-100 [facility] Comment on above: Result Comment: Test performed by glucose meter. Results may be 10%-15% lower than serum/plasma values. (CLIA ID [id number]) Performed By: #### B GLU #### [facility] [address] [place] [address] Hemogram w/ Autodiffon 05-19 Abs Baso Cnt 0.1 10*3/uL Normal 0.0-0.2 [facility] Comment on above: Performed By: #### B NP3, TROPN, BMP3, HEMDF #### [facility] [address] [place] [address] Abs Neutrophile Cnt 2.1 10*3/uL Normal 1.8-7.0 [facility] Comment on above: Performed By: #### B NP3, TROPN, BMP3, HEMDF #### [facility] [address] [place] [address] Basophils/100 WBC (Bld) 1.5 % Normal 0.0-2.0 [facility] Comment on above: Performed By: #### B NP3, TROPN, BMP3, HEMDF #### [facility] [address] [place] [address] Eosinophils (Bld) [#/Vol] 0.4 10*3/uL Normal 0.0-0.5 [facility] Comment on above: Performed By: #### B NP3, TROPN, BMP3, HEMDF #### [facility] [address] [place] [address] Eosinophils/100 WBC (Bld) 10.0 % High 1.0-6.0 [facility] Comment on above: Performed By: #### B NP3, TROPN, BMP3, HEMDF #### [facility] [address] [place] [address] Erythrocyte distribution width (RBC) [Ratio] 18.2 % High 11.5-14.5 [facility] Comment on above: Performed By: #### B NP3, TROPN, BMP3, HEMDF #### [facility] [address] [place] [address] Granulocytes/100 WBC (Bld) 54.0 % Normal 40.0-80.0 [facility] Comment on above: Performed By: #### B NP3, TROPN, BMP3, HEMDF #### [facility] [address] [place] [address] Hematocrit (Bld) [Volume fraction] 34.6 % Low 40.0-52.0 [facility] Comment on above: Performed By: #### B NP3, TROPN, BMP3, HEMDF #### [facility] [address] [place] [address] Hemoglobin (Bld) [Mass/Vol] 11.4 g/dL Low 13.0-18.0 [facility] Comment on above: Performed By: #### B NP3, TROPN, BMP3, HEMDF #### [facility] [address] [place] [address] Lymphocytes (Bld) [#/Vol] 0.9 10*3/uL Low 1.0-4.3 [facility] Comment on above: Performed By: #### B NP3, TROPN, BMP3, HEMDF #### [facility] [address] [place] [address] Lymphocytes/100 WBC (Bld) 23.0 % Normal 20.0-40.0 [facility] Comment on above: Performed By: #### B NP3, TROPN, BMP3, HEMDF #### [facility] [address] [place] [address] MCH (RBC) [Entitic mass] 29.5 pg Normal 26.0-34.0 [facility] Comment on above: Performed By: #### B NP3, TROPN, BMP3, HEMDF #### [facility] [address] [place] [address] MCHC 33.0 % Normal 32.0-36.0 [facility] Comment on above: Performed By: #### B NP3, TROPN, BMP3, HEMDF #### [facility] [address] [place] [address] MCV (RBC) [Entitic vol] 89.5 fL Normal 80.0-98.0 [facility] Comment on above: Performed By: #### B NP3, TROPN, BMP3, HEMDF #### [facility] [address] [place] [address] Monocytes (Bld) [#/Vol] 0.4 10*3/uL Normal 0.0-0.8 [facility] Comment on above: Performed By: #### B NP3, TROPN, BMP3, HEMDF #### [facility] [address] [place] [address] Monocytes/100 WBC (Bld) 11.5 % High 2.0-10.0 [facility] Comment on above: Performed By: #### B NP3, TROPN, BMP3, HEMDF #### [facility] [address] [place] [address] Platelet mean volume (Bld) [Entitic vol] 8.3 fL Normal 7.4-10.4 [facility] Comment on above: Performed By: #### B NP3, TROPN, BMP3, HEMDF #### [facility] [address] [place] [address] Platelets (Bld) [#/Vol] 192 10*3/uL Normal 140-440 [facility] Comment on above: Performed By: #### B NP3, TROPN, BMP3, HEMDF #### [facility] [address] [place] [address] RBC (Bld) [#/Vol] 3.87 10*6/uL Low 4.40-5.90 [facility] Comment on above: Performed By: #### B NP3, TROPN, BMP3, HEMDF #### [facility] [address] [place] [address] WBC (Bld) [#/Vol] 3.8 10*3/uL Normal 3.6-10.7 [facility] Comment on above: Performed By: #### B NP3, TROPN, BMP3, HEMDF #### [facility] [address] [place] [address] Magnesiumon 05-19-2021 Magnesium [Mass/Vol] 1.7 mg/dL Normal 1.6-2.3 [facility] Comment on above: Performed By: #### B NP3, TROPN, BMP3, HEMDF #### [facility] [address] [place] [address] NT pro BNPon 05-19-2021 Natriuretic peptide B (Bld) [Mass/Vol] 03920 pg/mL High 0-450 [facility] Comment on above: Performed By: #### B NP3, TROPN, BMP3, HEMDF #### [facility] [address] [place] [address] Comp Metabolic Panelon 05-18 ALP [Catalytic activity/Vol] 111 U/L Normal 38-126 [facility] Comment on above: Performed By: #### L IPD2, BMP3, MG3 #### [facility] [address] [place] [address] ALT [Catalytic activity/Vol] 19 U/L Normal 0-49 [facility] Comment on above: Result Comment: The ALT test is performed by an updated assay method. Please note that the reference intervals have been changed and are now sex specific. Performed By: #### L IPD2, BMP3, MG3 #### [facility] [address] [place] [address] Anion gap [Moles/Vol] 9 mmol/L Normal 3-13 [facility] Comment on above: Performed By: #### L IPD2, BMP3, MG3 #### [facility] [address] [place] [address] AST [Catalytic activity/Vol] 45 U/L Normal 15-46 [facility] Comment on above: Performed By: #### L IPD2, BMP3, MG3 #### [facility] [address] [place] [address] Bilirubin [Mass/Vol] 1.2 mg/dL Normal 0.2-1.3 [facility] Comment on above: Performed By: #### L IPD2, BMP3, MG3 #### [facility] [address] [place] [address] Calcium [Mass/Vol] 8.8 mg/dL Normal 8.4-10.4 [facility] Comment on above: Performed By: #### L IPD2, BMP3, MG3 #### [facility] [address] [place] [address] CO2 [Moles/Vol] 29 mmol/L Normal 22-30 [facility] Comment on above: Performed By: #### L IPD2, BMP3, MG3 #### [facility] [address] [place] [address] Glucose [Mass/Vol] 100 mg/dL Normal 70-100 [facility] Comment on above: Performed By: #### L IPD2, BMP3, MG3 #### [facility] [address] [place] [address] Protein [Mass/Vol] 6.5 g/dL Normal 6.3-8.2 [facility] Comment on above: Performed By: #### L IPD2, BMP3, MG3 #### [facility] [address] [place] [address] Urea nitrogen [Mass/Vol] 65 mg/dL High 7-17 [facility] Comment on above: Performed By: #### L IPD2, BMP3, MG3 #### [facility] [address] [place] [address] Creatinine [Mass/Vol] 2.34 mg/dL High 0.52-1.25 [facility] Comment on above: Performed By: #### L IPD2, BMP3, MG3 #### [facility] [address] [place] [address] GFR/1.73 sq M.predicted among blacks MDRD (S/P/Bld) [Vol rate/Area] 28.9 mL/min/{1.73_m2} Abnormal >60 [facility] Comment on above: Performed By: #### L IPD2, BMP3, MG3 #### [facility] [address] [place] [address] GFR/1.73 sq M.predicted among non-blacks MDRD (S/P/Bld) [Vol rate/Area] 25.0 mL/min/{1.73_m2} Abnormal >60 [facility] Comment on above: Result Comment: KDIG [...] By: #### L IPD2, BMP3, MG3 #### [facility] [address] [place] [address] Albumin [Mass/Vol] 3.6 g/dL Normal 3.5-5.0 [facility] Comment on above: Performed By: #### L IPD2, BMP3, MG3 #### [facility] [address] [place] [address] Chloride [Moles/Vol] 101 mmol/L Normal 98-107 [facility] Comment on above: Performed By: #### L IPD2, BMP3, MG3 #### [facility] [address] [place] [address] Potassium [Moles/Vol] 3.7 mmol/L Normal 3.5-5.1 [facility] Comment on above: Performed By: #### L IPD2, BMP3, MG3 #### [facility] [address] [place] [address] Sodium [Moles/Vol] 140 mmol/L Normal 135-145 [facility] Comment on above: Performed By: #### L IPD2, BMP3, MG3 #### [facility] [address] [place] [address] Glucose,Bedsideon 05-18-2021 Glucose [Mass/Vol] 145 mg/dL [facility] [address] [facility] Comment on above: Result Comment: Test performed by glucose meter. Results may be 10%-15% lower than serum/plasma values. (CLIA ID [id number]) Performed By: #### L IPD2, BMP3, MG3 #### [facility] [address] [place] [address] Glucose [Mass/Vol] 116 mg/dL [address] [facility] Comment on above: Result Comment: Test performed by glucose meter. Results may be 10%-15% lower than serum/plasma values. (CLIA ID [id number]) Performed By: #### L IPD2, BMP3, MG3 #### [facility] [address] [place] [address] Glucose [Mass/Vol] 165 mg/dL [address] Comment on above: Result Comment: Test performed by glucose meter. Results may be 10%-15% lower than serum/plasma values. (CLIA ID [id number]) Performed By: #### B GLU #### [facility] [address] [place] [address] Glucose [Mass/Vol] 155 mg/dL [address] Comment on above: Result Comment: Test performed by glucose meter. Results may be 10%-15% lower than serum/plasma values. (CLIA ID [id number]) Performed By: #### T ROPN, LACT3 #### [facility] [address] [place] [address] Hemogram w/ Autodiffon 05-18 Abs Baso Cnt 0.1 10*3/uL Normal 0.0-0.2 [facility] Comment on above: Performed By: #### L IPD2, BMP3, MG3 #### [facility] [address] [place] [address] Abs Neutrophile Cnt 2.2 10*3/uL Normal 1.8-7.0 [facility] Comment on above: Performed By: #### L IPD2, BMP3, MG3 #### [facility] [address] [place] [address] Basophils/100 WBC (Bld) 1.4 % Normal 0.0-2.0 [facility] Comment on above: Performed By: #### L IPD2, BMP3, MG3 #### [facility] [address] [place] [address] Eosinophils (Bld) [#/Vol] 0.3 10*3/uL Normal 0.0-0.5 [facility] Comment on above: Performed By: #### L IPD2, BMP3, MG3 #### [facility] [address] [place] [address] Eosinophils/100 WBC (Bld) 7.3 % High 1.0-6.0 [facility] Comment on above: Performed By: #### L IPD2, BMP3, MG3 #### [facility] [address] [place] [address] Erythrocyte distribution width (RBC) [Ratio] 18.4 % High 11.5-14.5 [facility] Comment on above: Performed By: #### L IPD2, BMP3, MG3 #### [facility] [address] [place] [address] Granulocytes/100 WBC (Bld) 57.1 % Normal 40.0-80.0 [facility] Comment on above: Performed By: #### L IPD2, BMP3, MG3 #### [facility] [address] [place] [address] Hematocrit (Bld) [Volume fraction] 34.2 % Low 40.0-52.0 [facility] Comment on above: Performed By: #### L IPD2, BMP3, MG3 #### [facility] [address] [place] [address] Hemoglobin (Bld) [Mass/Vol] 10.9 g/dL Low 13.0-18.0 [facility] Comment on above: Performed By: #### L IPD2, BMP3, MG3 #### [facility] [address] [place] [address] Lymphocytes (Bld) [#/Vol] 0.8 10*3/uL Low 1.0-4.3 [facility] Comment on above: Performed By: #### L IPD2, BMP3, MG3 #### [facility] [facility] [address] [place] [address] Lymphocytes/100 WBC (Bld) 21.4 % Normal 20.0-40.0 [facility] Comment on above: Performed By: #### L IPD2, BMP3, MG3 #### [facility] [address] [place] [address] MCH (RBC) [Entitic mass] 29.6 pg Normal 26.0-34.0 [facility] Comment on above: Performed By: #### L IPD2, BMP3, MG3 #### [facility] [address] [place] [address] MCHC 31.8 % Low 32.0-36.0 [facility] Comment on above: Performed By: #### L IPD2, BMP3, MG3 #### [facility] [address] [place] [address] MCV (RBC) [Entitic vol] 92.9 fL Normal 80.0-98.0 [facility] Comment on above: Performed By: #### L IPD2, BMP3, MG3 #### [facility] [address] [place] [address] Monocytes (Bld) [#/Vol] 0.5 10*3/uL Normal 0.0-0.8 [facility] Comment on above: Performed By: #### L IPD2, BMP3, MG3 #### [facility] [address] [place] [address] Monocytes/100 WBC (Bld) 12.8 % High 2.0-10.0 [facility] Comment on above: Performed By: #### L IPD2, BMP3, MG3 #### [facility] [address] [place] [address] Platelet mean volume (Bld) [Entitic vol] 8.6 fL Normal 7.4-10.4 [facility] Comment on above: Performed By: #### L IPD2, BMP3, MG3 #### [facility] [address] [place] [address] Platelets (Bld) [#/Vol] 189 10*3/uL Normal 140-440 [facility] Comment on above: Performed By: #### L IPD2, BMP3, MG3 #### [facility] [address] [place] [address] RBC (Bld) [#/Vol] 3.68 10*6/uL Low 4.40-5.90 [facility] Comment on above: Performed By: #### L IPD2, BMP3, MG3 #### [facility] [address] [place] [address] WBC (Bld) [#/Vol] 3.8 10*3/uL Normal 3.6-10.7 [facility] Comment on above: Performed By: #### L IPD2, BMP3, MG3 #### [facility] [address] [place] [address] Magnesiumon 05-18-2021 Magnesium [Mass/Vol] 1.6 mg/dL Normal 1.6-2.3 [facility] Comment on above: Performed By: #### L IPD2, BMP3, MG3 #### [facility] [address] [place] [address] Comp Metabolic Panelon 05-17 ALP [Catalytic activity/Vol] 103 U/L Normal 38-126 [facility] Comment on above: Performed By: #### B NP3, TROPN, BMP3, HEMDF #### [facility] [address] [place] [address] ALT [Catalytic activity/Vol] 18 U/L Normal 0-49 [facility] Comment on above: Result Comment: The ALT test is performed by an updated assay method. Please note that the reference intervals have been changed and are now sex specific. Performed By: #### B NP3, TROPN, BMP3, HEMDF #### [facility] [address] [place] [address] Calcium [Mass/Vol] 9.0 mg/dL Normal 8.4-10.4 [facility] Comment on above: Performed By: #### B NP3, TROPN, BMP3, HEMDF #### [facility] [address] [place] [address] Glucose [Mass/Vol] 105 mg/dL High 70-100 [facility] Comment on above: Performed By: #### B NP3, TROPN, BMP3, HEMDF #### [facility] [address] [place] [address] Urea nitrogen [Mass/Vol] 68 mg/dL High 7-17 [facility] Comment on above: Performed By: #### B NP3, TROPN, BMP3, HEMDF #### [facility] [address] [place] [address] Anion gap [Moles/Vol] 8 mmol/L Normal 3-13 [facility] Comment on above: Performed By: #### B NP3, TROPN, BMP3, HEMDF #### [facility] [address] [place] [address] AST [Catalytic activity/Vol] 44 U/L Normal 15-46 [facility] Comment on above: Performed By: #### B NP3, TROPN, BMP3, HEMDF #### [facility] [address] [place] [address] Bilirubin [Mass/Vol] 1.1 mg/dL Normal 0.2-1.3 [facility] Comment on above: Performed By: #### B NP3, TROPN, BMP3, HEMDF #### [facility] [address] [place] [address] CO2 [Moles/Vol] 29 mmol/L Normal 22-30 [facility] Comment on above: Performed By: #### B NP3, TROPN, BMP3, HEMDF #### [facility] [address] [place] [address] Creatinine [Mass/Vol] 2.50 mg/dL High 0.52-1.25 [facility] Comment on above: Performed By: #### B NP3, TROPN, BMP3, HEMDF #### [facility] [address] [place] [address] GFR/1.73 sq M.predicted among blacks MDRD (S/P/Bld) [Vol rate/Area] 26.7 mL/min/{1.73_m2} Abnormal >60 [facility] Comment on above: Performed By: #### B NP3, TROPN, BMP3, HEMDF #### [facility] [address] [place] [address] GFR/1.73 sq M.predicted among non-blacks MDRD (S/P/Bld) [Vol rate/Area] 23.1 mL/min/{1.73_m2} Abnormal >60 [facility] Comment on above: Result Comment: KDIG [...] #### B NP3, TROPN, BMP3, HEMDF #### [facility] [address] [place] [address] Protein [Mass/Vol] 6.3 g/dL Normal 6.3-8.2 [facility] Comment on above: Performed By: #### B NP3, TROPN, BMP3, HEMDF #### [facility] [address] [place] [address] Chloride [Moles/Vol] 101 mmol/L Normal 98-107 [facility] Comment on above: Performed By: #### B NP3, TROPN, BMP3, HEMDF #### [facility] [address] [place] [address] Potassium [Moles/Vol] 4.0 mmol/L Normal 3.5-5.1 [facility] Comment on above: Performed By: #### B NP3, TROPN, BMP3, HEMDF #### [facility] [address] [place] [address] Sodium [Moles/Vol] 138 mmol/L Normal 135-145 [facility] Comment on above: Performed By: #### B NP3, TROPN, BMP3, HEMDF #### [facility] [address] [place] [address] Albumin [Mass/Vol] 3.4 g/dL Low 3.5-5.0 [facility] Comment on above: Performed By: #### B NP3, TROPN, BMP3, HEMDF #### [facility] [address] [place] [address] Glucose,Bedsideon 05-17-2021 Glucose [Mass/Vol] 157 mg/dL High 70-100 [facility] Comment on above: Result Comment: Test performed by glucose meter. Results may be 10%-15% lower than serum/plasma values. (CLIA ID [id number]) Performed By: #### T ROPN, LACT3 #### [facility] [address] [place] [address] Glucose [Mass/Vol] 103 mg/dL High 70-100 [facility] Comment on above: Result Comment: Test performed by glucose meter. Results may be 10%-15% lower than serum/plasma values. (CLIA ID [id number]) Performed By: #### B GLU #### [facility] [address] [place] [address] Glucose [Mass/Vol] 124 mg/dL High 70-100 [facility] Comment on above: Result Comment: Test performed by glucose meter. Results may be 10%-15% lower than serum/plasma values. (CLIA ID [id number]) Performed By: #### L IPD2, BMP3, MG3 #### [facility] [address] [place] [address] Glucose [Mass/Vol] 112 mg/dL High 70-100 [facility] Comment on above: Result Comment: Test performed by glucose meter. Results may be 10%-15% lower than serum/plasma values. (CLIA ID [id number]) Performed By: #### B NP3, TROPN, BMP3, HEMDF #### [facility] [address] [place] [address] Hemogram w/ Autodiffon 05-17 Erythrocyte distribution width (RBC) [Ratio] 18.7 % High 11.5-14.5 [facility] Comment on above: Performed By: #### B NP3, TROPN, BMP3, HEMDF #### [facility] [address] [place] [address] Hematocrit (Bld) [Volume fraction] 33.4 % Low 40.0-52.0 [facility] Comment on above: Performed By: #### B NP3, TROPN, BMP3, HEMDF #### [facility] [address] [place] [address] Hemoglobin (Bld) [Mass/Vol] 10.8 g/dL Low 13.0-18.0 [facility] Comment on above: Performed By: #### B NP3, TROPN, BMP3, HEMDF #### [facility] [address] [place] [address] MCH (RBC) [Entitic mass] 29.8 pg Normal 26.0-34.0 [facility] Comment on above: Performed By: #### B NP3, TROPN, BMP3, HEMDF #### [facility] [address] [place] [address] MCHC 32.5 % Normal 32.0-36.0 [facility] Comment on above: Performed By: #### B NP3, TROPN, BMP3, HEMDF #### [facility] [address] [place] [address] MCV (RBC) [Entitic vol] 91.7 fL Normal 80.0-98.0 [facility] Comment on above: Performed By: #### B NP3, TROPN, BMP3, HEMDF #### [facility] [address] [place] [address] Platelet mean volume (Bld) [Entitic vol] 9.1 fL Normal 7.4-10.4 [facility] Comment on above: Performed By: #### B NP3, TROPN, BMP3, HEMDF #### [facility] [address] [place] [address] Platelets (Bld) [#/Vol] 206 10*3/uL Normal 140-440 [facility] Comment on above: Performed By: #### B NP3, TROPN, BMP3, HEMDF #### [facility] [address] [place] [address] RBC (Bld) [#/Vol] 3.64 10*6/uL Low 4.40-5.90 [facility] Comment on above: Performed By: #### B NP3, TROPN, BMP3, HEMDF #### [facility] [address] [place] [address] WBC (Bld) [#/Vol] 4.0 10*3/uL Normal 3.6-10.7 [facility] Comment on above: Performed By: #### B NP3, TROPN, BMP3, HEMDF #### [facility] [address] [place] [address] Magnesiumon 05-17-2021 Magnesium [Mass/Vol] 1.7 mg/dL Normal 1.6-2.3 [facility] Comment on above: Performed By: #### B NP3, TROPN, BMP3, HEMDF #### [facility] [address] [place] [address] Manual Diffon 05-17-2021 Abs Baso Cnt 0.1 10*3/uL Normal 0.0-0.2 [facility] Comment on above: Performed By: #### B NP3, TROPN, BMP3, HEMDF #### [facility] [address] [place] [address] Abs Eosin Cnt 0.2 10*3/uL Normal 0.0-0.[address] [facility] Comment on above: Performed By: #### B NP3, TROPN, BMP3, HEMDF #### [facility] [address] [place] [address] Abs Lymph Cnt 0.7 10*3/uL Low 1.1-4.[address] [facility] Comment on above: Performed By: #### B NP3, TROPN, BMP3, HEMDF #### [facility] [address] [place] [address] Abs Monocyte Cnt 0.1 10*3/uL Low 0.2-1.1 [facility] Comment on above: Performed By: #### B NP3, TROPN, BMP3, HEMDF #### [facility] [address] [place] [address] Abs Neutrophile Cnt 2.9 10*3/uL Normal 2.2-8.2 [facility] Comment on above: Performed By: #### B NP3, TROPN, BMP3, HEMDF #### [facility] [address] [place] [address] Acanthocytes Slight Normal [facility] Comment on above: Performed By: #### B NP3, TROPN, BMP3, HEMDF #### [facility] [address] [place] [address] Anisocytosis Slight Normal [facility] Comment on above: Performed By: #### B NP3, TROPN, BMP3, HEMDF #### [facility] [address] [place] [address] Bands 0 % Normal 0-3 [facility] Comment on above: Performed By: #### B NP3, TROPN, BMP3, HEMDF #### [facility] [address] [place] [address] Basophils 3 % High 0-2 [facility] Comment on above: Performed By: #### B NP3, TROPN, BMP3, HEMDF #### [facility] [address] [place] [address] Canute Cells Slight Normal [facility] Comment on above: Performed By: #### B NP3, TROPN, BMP3, HEMDF #### [facility] [address] [place] [address] Cells counted 100 Normal [facility] Comment on above: Performed By: #### B NP3, TROPN, BMP3, HEMDF #### [facility] [address] [place] [address] Eosinophils 5 % Normal 1-6 [facility] Comment on above: Performed By: #### B NP3, TROPN, BMP3, HEMDF #### [facility] [address] [place] [address] Hypochromia Slight Normal [facility] Comment on above: Performed By: #### B NP3, TROPN, BMP3, HEMDF #### [facility] [address] [place] [address] Lymphocytes 17 % Low 20-40 [facility] Comment on above: Performed By: #### B NP3, TROPN, BMP3, HEMDF #### [facility] [address] [place] [address] Monocytes 3 % Normal 2-10 [facility] Comment on above: Performed By: #### B NP3, TROPN, BMP3, HEMDF #### [facility] [address] [place] [address] Ovalocytes Slight Normal [facility] Comment on above: Performed By: #### B NP3, TROPN, BMP3, HEMDF #### [facility] [address] [place] [address] Poikilocytosis Slight Normal [facility] Comment on above: Performed By: #### B NP3, TROPN, BMP3, HEMDF #### [facility] [address] [place] [address] Polychromasia Slight Normal [facility] Comment on above: Performed By: #### B NP3, TROPN, BMP3, HEMDF #### [facility] [address] [place] [address] RBC Morphology ABNORMAL Normal [facility] Comment on above: Performed By: #### B NP3, TROPN, BMP3, HEMDF #### [facility] [address] [place] [address] Seg Neutrophils 72 % Normal 40-80 [facility] Comment on above: Performed By: #### B NP3, TROPN, BMP3, HEMDF #### [facility] [address] [place] [address] Tear Drop Forms Slight Normal [facility] Comment on above: Performed By: #### B NP3, TROPN, BMP3, HEMDF #### [facility] [address] [place] [address] Basic Metabolic Panelon 10-2 Calcium [Mass/Vol] 9.8 mg/dL Normal 8.4-10.4 [facility] Comment on above: Performed By: #### T CHELEN, LACT3 #### [facility] [address] [place] [address] Anion gap [Moles/Vol] 12 mmol/L Normal 3-13 [facility] Comment on above: Performed By: #### T ROPN, LACT3 #### [facility] [address] [place] [address] CO2 [Moles/Vol] 27 mmol/L Normal 22-30 [facility] Comment on above: Performed By: #### T CHELEN, LACT3 #### [facility] [address] [place] [address] Creatinine [Mass/Vol] 2.67 mg/dL High 0.52-1.25 [facility] Comment on above: Performed By: #### T CHELEN, LACT3 #### [facility] [address] [place] [address] GFR/1.73 sq M.predicted among blacks MDRD (S/P/Bld) [Vol rate/Area] 24.7 mL/min/{1.73_m2} Abnormal >60 [facility] Comment on above: Performed By: #### T ROPN, LACT3 #### [facility] [address] [place] [address] GFR/1.73 sq M.predicted among non-blacks MDRD (S/P/Bld) [Vol rate/Area] 21.3 mL/min/{1.73_m2} Abnormal >60 [facility] Comment on above: Result Comment: KDIG [...] Performed By: #### T CASSY LACT3 #### [facility] [address] [place] [address] Glucose [Mass/Vol] 91 mg/dL Normal 70-100 [facility] Comment on above: Performed By: #### T CASSY, LACT3 #### [facility] [address] [place] [address] Urea nitrogen [Mass/Vol] 70 mg/dL High 7-17 [facility] Comment on above: Performed By: #### T CASSY, LACT3 #### [facility] [address] [place] [address] Chloride [Moles/Vol] 102 mmol/L Normal 98-107 [facility] Comment on above: Performed By: #### T CASSY LACT3 #### [facility] [address] [place] [address] Potassium [Moles/Vol] 4.4 mmol/L Normal 3.5-5.1 [facility] Comment on above: Performed By: #### T CASSY, LACT3 #### [facility] [address] [place] [address] Sodium [Moles/Vol] 140 mmol/L Normal 135-145 [facility] Comment on above: Performed By: #### T CASSY LACT3 #### [facility] [address] [place] [address] Glucose,Bedsideon 05-16-2021 Glucose [Mass/Vol] 88 mg/dL Normal 70-100 [facility] Comment on above: Result Comment: Test performed by glucose meter. Results may be 10%-15% lower than serum/plasma values. (CLIA ID [id number]) Performed By: #### B GLU #### [facility] [address] [place] [address] Glucose [Mass/Vol] 145 mg/dL High 70-100 [facility] Comment on above: Result Comment: Test performed by glucose meter. Results may be 10%-15% lower than serum/plasma values. (CLIA ID [id number]) Performed By: #### Larissa MADERA LACT3 #### [facility] [address] [place] [address] Glucose [Mass/Vol] 83 mg/dL Normal 70-100 [facility] Comment on above: Result Comment: Test performed by glucose meter. Results may be 10%-15% lower than serum/plasma values. (CLIA ID [id number]) Performed By: #### Larissa MADERA LACT3 #### [facility] [address] [place] [address] Hemogram w/ Autodiffon 05-16 Abs Baso Cnt 0.1 10*3/uL Normal 0.0-0.2 [facility] Comment on above: Performed By: #### Larissa MADERA LACT3 #### [facility] [address] [place] [address] Abs Neutrophile Cnt 2.6 10*3/uL Normal 1.8-7.0 [facility] Comment on above: Performed By: #### Larissa MADERA LACT3 #### [facility] [address] [place] [address] Basophils/100 WBC (Bld) 1.8 % Normal 0.0-2.0 [facility] Comment on above: Performed By: #### Larissa MADERA LACT3 #### [facility] [address] [place] [address] Eosinophils (Bld) [#/Vol] 0.3 10*3/uL Normal 0.0-0.5 [facility] Comment on above: Performed By: #### Larissa MADERA LACT3 #### [facility] [address] [place] [address] Eosinophils/100 WBC (Bld) 6.2 % High 1.0-6.0 [facility] Comment on above: Performed By: #### Larissa MADERA LACT3 #### [facility] [address] [place] [address] Erythrocyte distribution width (RBC) [Ratio] 18.8 % High 11.5-14.5 [facility] Comment on above: Performed By: #### T CASSY LACT3 #### [facility] [address] [place] [address] Granulocytes/100 WBC (Bld) 62.7 % Normal 40.0-80.0 [facility] Comment on above: Performed By: #### T CASSY, LACT3 #### [facility] [address] [place] [address] Hematocrit (Bld) [Volume fraction] 38.4 % Low 40.0-52.0 [facility] Comment on above: Performed By: #### Larissa MADERA LACT3 #### [facility] [address] [place] [address] Hemoglobin (Bld) [Mass/Vol] 12.7 g/dL Low 13.0-18.0 [facility] Comment on above: Performed By: #### Larissa MADERA LACT3 #### [facility] [address] [place] [address] Lymphocytes (Bld) [#/Vol] 0.7 10*3/uL Low 1.0-4.3 [facility] Comment on above: Performed By: #### Larissa MADERA LACT3 #### [facility] [address] [place] [address] Lymphocytes/100 WBC (Bld) 17.9 % Low 20.0-40.0 [facility] Comment on above: Performed By: #### T CASSY LACT3 #### [facility] [address] [place] [address] MCH (RBC) [Entitic mass] 30.3 pg Normal 26.0-34.0 [facility] Comment on above: Performed By: #### T CASSY LACT3 #### [facility] [address] [place] [address] MCHC 33.1 % Normal 32.0-36.0 [facility] Comment on above: Performed By: #### T CASSY, LACT3 #### [facility] [address] [place] [address] MCV (RBC) [Entitic vol] 91.5 fL Normal 80.0-98.0 [facility] Comment on above: Performed By: #### Larissa MADERA, LACT3 #### [facility] [address] [place] [address] Monocytes (Bld) [#/Vol] 0.5 10*3/uL Normal 0.0-0.8 [facility] Comment on above: Performed By: #### Larissa MADERA LACT3 #### [facility] [address] [place] [address] Monocytes/100 WBC (Bld) 11.4 % High 2.0-10.0 [facility] Comment on above: Performed By: #### Larissa MADERA LACT3 #### [facility] [address] [place] [address] Platelet mean volume (Bld) [Entitic vol] 8.6 fL Normal 7.4-10.4 [facility] Comment on above: Performed By: #### Larissa MADERA LACT3 #### [facility] [address] [place] [address] Platelets (Bld) [#/Vol] 204 10*3/uL Normal 140-440 [facility] Comment on above: Performed By: #### Larissa MADERA LACT3 #### [facility] [address] [place] [address] RBC (Bld) [#/Vol] 4.20 10*6/uL Low 4.40-5.90 [facility] Comment on above: Performed By: #### Larissa MADERA LACT3 #### [facility] [address] [place] [address] WBC (Bld) [#/Vol] 4.2 10*3/uL Normal 3.6-10.7 [facility] Comment on above: Performed By: #### Larissa MADERA LACT3 #### [facility] [address] [place] [address] Magnesiumon 05-16-2021 Magnesium [Mass/Vol] 1.7 mg/dL Normal 1.6-2.3 [facility] Comment on above: Performed By: #### Larissa MADERA LACT3 #### [facility] [address] [place] [address] NT pro BNPon 05-16-2021 Natriuretic peptide B (Bld) [Mass/Vol] 080[address] pg/mL High 0-450 [facility] Comment on above: Performed By: #### T ROPN, LACT3 #### [facility] [address] [place] [address] Basic Metabolic Panelon 04-21 Calcium [Mass/Vol] 9.7 mg/dL Normal 8.4-10.4 [facility] Comment on above: Performed By: #### B GLU #### [facility] [address] [place] [address] Glucose [Mass/Vol] 84 mg/dL Normal 70-100 [facility] Comment on above: Performed By: #### B GLU #### [facility] [address] [place] [address] Urea nitrogen [Mass/Vol] 67 mg/dL High 7-17 [facility] Comment on above: Performed By: #### B GLU #### [facility] [address] [place] [address] Anion gap [Moles/Vol] 15 mmol/L High 3-13 [facility] Comment on above: Performed By: #### B GLU #### [facility] [address] [place] [address] CO2 [Moles/Vol] 25 mmol/L Normal 22-30 [facility] Comment on above: Performed By: #### B GLU #### [facility] [address] [place] [address] Creatinine [Mass/Vol] 2.84 mg/dL High 0.52-1.25 [facility] Comment on above: Performed By: #### B GLU #### [facility] [address] [place] [address] GFR/1.73 sq M.predicted among blacks MDRD (S/P/Bld) [Vol rate/Area] 22.9 mL/min/{1.73_m2} Abnormal >60 [facility] Comment on above: Performed By: #### B GLU #### [facility] [address] [place] [address] GFR/1.73 sq M.predicted among non-blacks MDRD (S/P/Bld) [Vol rate/Area] 19.8 mL/min/{1.73_m2} Abnormal >60 [facility] Comment on above: Result Comment: KDIG [...] secretion. Performed By: #### B GLU #### [facility] [address] [place] [address] Potassium [Moles/Vol] 4.6 mmol/L Normal 3.5-5.1 [facility] Comment on above: Performed By: #### B GLU #### [facility] [address] [facility] [place] [address] Chloride [Moles/Vol] 99 mmol/L Normal 98-107 [facility] Comment on above: Performed By: #### B GLU #### [facility] [address] [facility] [place] [address] Sodium [Moles/Vol] 139 mmol/L Normal 135-145 [facility] Comment on above: Performed By: #### B GLU #### [facility] [address] [place] [address] Glucose,Bedsideon 05-15-2021 Glucose [Mass/Vol] 81 mg/dL Normal 70-100 [facility] Comment on above: Result Comment: Test performed by glucose meter. Results may be 10%-15% lower than serum/plasma values. (CLIA ID [id number]) Performed By: #### B GLU #### [facility] [address] [place] [address] Glucose [Mass/Vol] 83 mg/dL Normal 70-100 [facility] Comment on above: Result Comment: Test performed by glucose meter. Results may be 10%-15% lower than serum/plasma values. (CLIA ID [id number]) Performed By: #### L IPD2, BMP3, MG3 #### [facility] [address] [place] [address] Glucose [Mass/Vol] 88 mg/dL Normal 70-100 [facility] Comment on above: Result Comment: Test performed by glucose meter. Results may be 10%-15% lower than serum/plasma values. (CLIA ID [id number]) Performed By: #### T ROPN, LACT3 #### [facility] [address] [place] [address] Glucose [Mass/Vol] 70 mg/dL Normal 70-100 [facility] Comment on above: Result Comment: Test performed by glucose meter. Results may be 10%-15% lower than serum/plasma values. (CLIA ID [id number]) Performed By: #### T ROPN, LACT3 #### [facility] [address] [place] [address] Hemogram w/ Autodiffon 05-15 Abs Baso Cnt 0.1 10*3/uL Normal 0.0-0.2 [facility] Comment on above: Performed By: #### B GLU #### [facility] [address] [place] [address] Abs Neutrophile Cnt 2.7 10*3/uL Normal 1.8-7.0 [facility] Comment on above: Performed By: #### B GLU #### [facility] [address] [place] [address] Basophils/100 WBC (Bld) 1.7 % Normal 0.0-2.0 [facility] Comment on above: Performed By: #### B GLU #### [facility] [address] [place] [address] Eosinophils (Bld) [#/Vol] 0.2 10*3/uL Normal 0.0-0.5 [facility] Comment on above: Performed By: #### B GLU #### [facility] [address] [place] [address] Eosinophils/100 WBC (Bld) 3.5 % Normal 1.0-6.0 [facility] Comment on above: Performed By: #### B GLU #### [facility] [address] [place] [address] Erythrocyte distribution width (RBC) [Ratio] 18.8 % High 11.5-14.5 [facility] Comment on above: Performed By: #### B GLU #### [facility] [address] [place] [address] Granulocytes/100 WBC (Bld) 59.1 % Normal 40.0-80.0 [facility] Comment on above: Performed By: #### B GLU #### [facility] [address] [place] [address] Hematocrit (Bld) [Volume fraction] 40.7 % Normal 40.0-52.0 [facility] Comment on above: Performed By: #### B GLU #### [facility] [address] [place] [address] Hemoglobin (Bld) [Mass/Vol] 13.0 g/dL Normal 13.0-18.0 [facility] Comment on above: Performed By: #### B GLU #### [facility] [address] [place] [address] Lymphocytes (Bld) [#/Vol] 1.0 10*3/uL Normal 1.0-4.3 [facility] Comment on above: Performed By: #### B GLU #### [facility] [address] [place] [address] Lymphocytes/100 WBC (Bld) 21.9 % Normal 20.0-40.0 [facility] Comment on above: Performed By: #### B GLU #### [facility] [address] [place] [address] MCH (RBC) [Entitic mass] 29.8 pg Normal 26.0-34.0 [facility] Comment on above: Performed By: #### B GLU #### [facility] [address] [place] [address] MCHC 31.9 % Low 32.0-36.0 [facility] Comment on above: Performed By: #### B GLU #### [facility] [address] [place] [address] MCV (RBC) [Entitic vol] 93.2 fL Normal 80.0-98.0 [facility] Comment on above: Performed By: #### B GLU #### [facility] [address] [place] [address] Monocytes (Bld) [#/Vol] 0.6 10*3/uL Normal 0.0-0.8 [facility] Comment on above: Performed By: #### B GLU #### [facility] [address] [place] [address] Monocytes/100 WBC (Bld) 13.8 % High 2.0-10.0 [facility] Comment on above: Performed By: #### B GLU #### [facility] [address] [place] [address] Platelet mean volume (Bld) [Entitic vol] 8.7 fL Normal 7.4-10.4 [facility] Comment on above: Performed By: #### B GLU #### [facility] [address] [place] [address] Platelets (Bld) [#/Vol] 227 10*3/uL Normal 140-440 [facility] Comment on above: Performed By: #### B GLU #### [facility] [address] [place] [address] RBC (Bld) [#/Vol] 4.37 10*6/uL Low 4.40-5.90 [facility] Comment on above: Performed By: #### B GLU #### [facility] [address] [place] [address] WBC (Bld) [#/Vol] 4.6 10*3/uL Normal 3.6-10.7 [facility] Comment on above: Performed By: #### B GLU #### [facility] [address] [place] [address] Magnesiumon 05-15-2021 Magnesium [Mass/Vol] 1.6 mg/dL Normal 1.6-2.3 [facility] Comment on above: Performed By: #### B GLU #### [facility] [address] [place] [address] Basic Metabolic Panelon 10-2 Calcium [Mass/Vol] 9.7 mg/dL Normal 8.4-10.4 [facility] Comment on above: Performed By: #### L IPD2, BMP3, MG3 #### [facility] [address] [place] [address] Glucose [Mass/Vol] 111 mg/dL High 70-100 [facility] Comment on above: Performed By: #### L IPD2, BMP3, MG3 #### [facility] [address] [place] [address] Urea nitrogen [Mass/Vol] 64 mg/dL High 7-17 [facility] Comment on above: Performed By: #### L IPD2, BMP3, MG3 #### [facility] [address] [place] [address] Anion gap [Moles/Vol] 14 mmol/L High 3-13 [facility] Comment on above: Performed By: #### L IPD2, BMP3, MG3 #### [facility] [address] [place] [address] CO2 [Moles/Vol] 25 mmol/L Normal 22-30 [facility] Comment on above: Performed By: #### L IPD2, BMP3, MG3 #### [facility] [address] [place] [address] Creatinine [Mass/Vol] 2.95 mg/dL High 0.52-1.25 [facility] Comment on above: Performed By: #### L IPD2, BMP3, MG3 #### [facility] [address] [place] [address] GFR/1.73 sq M.predicted among blacks MDRD (S/P/Bld) [Vol rate/Area] 21.9 mL/min/{1.73_m2} Abnormal >60 [facility] Comment on above: Performed By: #### L IPD2, BMP3, MG3 #### [facility] [address] [place] [address] GFR/1.73 sq M.predicted among non-blacks MDRD (S/P/Bld) [Vol rate/Area] 18.9 mL/min/{1.73_m2} Abnormal >60 [facility] Comment on above: Result Comment: KDIG [...] By: #### L IPD2, BMP3, MG3 #### [facility] [address] [place] [address] Potassium [Moles/Vol] 4.1 mmol/L Normal 3.5-5.1 [facility] Comment on above: Performed By: #### L IPD2, BMP3, MG3 #### [facility] [address] [place] [address] Chloride [Moles/Vol] 103 mmol/L Normal 98-107 [facility] Comment on above: Performed By: #### L IPD2, BMP3, MG3 #### [facility] [address] [place], [place] [address] Sodium [Moles/Vol] 142 mmol/L Normal 135-145 [facility] Comment on above: Performed By: #### L IPD2, BMP3, MG3 #### [facility] [address] [place] [address] Glucose,Bedsideon 05-14-2021 Glucose [Mass/Vol] 115 mg/dL High 70-100 [facility] Comment on above: Result Comment: Test performed by glucose meter. Results may be 10%-15% lower than serum/plasma values. (CLIA ID [id number]) Performed By: #### B GLU #### [facility] [address] [place] [address] Glucose [Mass/Vol] 93 mg/dL Normal 70-100 [facility] Comment on above: Result Comment: Test performed by glucose meter. Results may be 10%-15% lower than serum/plasma values. (CLIA ID [id number]) Performed By: #### L IPD2, BMP3, MG3 #### [facility] [address] [place] [address] Glucose [Mass/Vol] 141 mg/dL High 70-100 [facility] Comment on above: Result Comment: Test performed by glucose meter. Results may be 10%-15% lower than serum/plasma values. (CLIA ID [id number]) Performed By: #### B GLU #### [facility] [address] [place] [address] Glucose [Mass/Vol] 114 mg/dL High 70-100 [facility] Comment on above: Result Comment: Test performed by glucose meter. Results may be 10%-15% lower than serum/plasma values. (CLIA ID [id number]) Performed By: #### B GLU #### [facility] [address] [place] [address] Glucose [Mass/Vol] 96 mg/dL Normal 70-100 [facility] Comment on above: Result Comment: Test performed by glucose meter. Results may be 10%-15% lower than serum/plasma values. (CLIA ID [id number]) Performed By: #### B NP3, TROPN, BMP3, HEMDF #### [facility] [address] [place] [address] Glucose [Mass/Vol] 62 mg/dL Low 70-100 [facility] Comment on above: Result Comment: Test performed by glucose meter. Results may be 10%-15% lower than serum/plasma values. (CLIA ID [id number]) Performed By: #### L IPD2, BMP3, MG3 #### [facility] [address] [place] [address] Lipid Panelon 05-14-2021 Chol/HDL 5 Normal [facility] Comment on above: Result Comment: Ref Range: < 3 Low Risk for CHD 3-6 Mod Risk for CHD > 6 High Risk for CHD Performed By: #### L IPD2, BMP3, MG3 #### [facility] [address] [place] [address] Cholesterol in HDL [Mass/Vol] 34 mg/dL Low 40-60 [facility] Comment on above: Performed By: #### L IPD2, BMP3, MG3 #### [facility] [address] [place] [address] Low Density Lipoprotein 110 mg/dL Abnormal <100 [facility] Comment on above: Performed By: #### L IPD2, BMP3, MG3 #### [facility] [address] [place] [address] Triglyceride [Mass/Vol] 109 mg/dL Normal <150 [facility] Comment on above: Performed By: #### L IPD2, BMP3, MG3 #### [facility] [address] [place] [address] Cholesterol [Mass/Vol] 166 mg/dL Normal < 200 [facility] Comment on above: Performed By: #### L IPD2, BMP3, MG3 #### [facility] [address] [place] [address] Magnesiumon 05-14-2021 Magnesium [Mass/Vol] 1.5 mg/dL Low 1.6-2.3 [facility] Comment on above: Performed By: #### L IPD2, BMP3, MG3 #### [facility] [address] [place] [address] Troponin Ion 05-14-2021 Troponin I.cardiac [Mass/Vol] 0.029 ng/mL Normal 0.000-0.034 [facility] Comment on above: Result Comment: . Performed By: #### B GLU #### [facility] [address] [place] [address] Troponin I.cardiac [Mass/Vol] 0.029 ng/mL Normal 0.000-0.034 [facility] Comment on above: Result Comment: . Performed By: #### L IPD2, BMP3, MG3 #### [facility] [address] [place] [address] Troponin I.cardiac [Mass/Vol] 0.033 ng/mL Normal 0.000-0.034 [facility] Comment on above: Result Comment: . Performed By: #### B NP3, TROPN, BMP3, HEMDF #### [facility] [address] [place] [address] VL Venous Duplex US Lower Ex t Bilateralon 05-14-2021 VL Venous Duplex US Lower Ext Bilateral Patient Name: MEGAN NASCIMENTO Ultrasound ACCESSION EXAM DATE/TIME PROCEDURE ORDERING PROVIDER [id number] 05/14/2021 09:25 EDT VL Venous Duplex US MD HARLEY PRAMOD Lower Ext Bilateral CPT code 75921 Reason For Exam (VL Venous Duplex US Lower Ext Bilateral) LE edema Report [facility] Lower Extremity Venous Duplex Report Patient Azam : 1940 Study 05/14/2021 Name: Megan Higuera (80yrs) Date: Patient [id number] Age: 80 Account: [id number] ID: Gender: M Loc: 444 BP: Ordering Physician: Gregg Harley Organ Assembler: Nohemi Davenport RDMS, RVT Interpreting Physician: Paz Nielson MD Location: [facility] Indications: Edema of the bilateral lower legs. [...] supine position. Images were obtained using a [employer] E9 vascular ultrasound machine. Ultrasound Report Venous [...] + + (more content not included)... Normal [facility] [email or web address] [facility] Basic Metabolic Panelon 10-2 Anion gap [Moles/Vol] 14 mmol/L High 3-13 [facility] Comment on above: Performed By: #### B NP3, TROPN, BMP3, HEMDF #### [facility] [employer] [address] [place] [address] Calcium [Mass/Vol] 9.6 mg/dL Normal 8.4-10.4 [facility] [email or web address] [facility] Comment on above: Performed By: #### B NP3, TROPN, BMP3, HEMDF #### [facility] [address] [place] [address] CO2 [Moles/Vol] 27 mmol/L Normal 22-30 [facility] Comment on above: Performed By: #### B NP3, TROPN, BMP3, HEMDF #### [facility] [address] [place] [address] Glucose [Mass/Vol] 105 mg/dL High 70-100 [facility] Comment on above: Performed By: #### B NP3, TROPN, BMP3, HEMDF #### [facility] [address] [place] [address] Urea nitrogen [Mass/Vol] 65 mg/dL High 7-17 [facility] Comment on above: Performed By: #### B NP3, TROPN, BMP3, HEMDF #### [facility] [address] [place] [address] Creatinine [Mass/Vol] 2.93 mg/dL High 0.52-1.25 [facility] Comment on above: Performed By: #### B NP3, TROPN, BMP3, HEMDF #### [facility] [address] [place] [address] GFR/1.73 sq M.predicted among blacks MDRD (S/P/Bld) [Vol rate/Area] 22.1 mL/min/{1.73_m2} Abnormal >60 [facility] Comment on above: Performed By: #### B NP3, TROPN, BMP3, HEMDF #### [facility] [address] [place] [address] GFR/1.73 sq M.predicted among non-blacks MDRD (S/P/Bld) [Vol rate/Area] 19.0 mL/min/{1.73_m2} Abnormal >60 [facility] Comment on above: Result Comment: KDIG [...] #### B NP3, TROPN, BMP3, HEMDF #### [facility] [address] [place] [address] Potassium [Moles/Vol] 4.2 mmol/L Normal 3.5-5.1 [facility] Comment on above: Performed By: #### B NP3, TROPN, BMP3, HEMDF #### [facility] [address] [place] [address] Chloride [Moles/Vol] 102 mmol/L Normal 98-107 [facility] Comment on above: Performed By: #### B NP3, TROPN, BMP3, HEMDF #### [facility] [address] [place] [address] Sodium [Moles/Vol] 144 mmol/L Normal 135-145 [facility] Comment on above: Performed By: #### B NP3, TROPN, BMP3, HEMDF #### [facility] [address] [place] [address] CR Chest Portableon 05-13-20 21 CR Chest Portable Patient Name: MEGAN NASCIMENTO Diagnostic Radiology ACCESSION EXAM DATE/TIME PROCEDURE ORDERING PROVIDER [id number] 05/13/2021 18:14 EDT CR Chest Portable [id number] PEREZ CPT code 33840 Reason For Exam (CR Chest Portable) SOB [...] Transcribed Date and Time: 05/13/2021 6:42 Normal [facility] Complete Urinalysison 2020 Appearance (U) Clear Normal Clear [facility] Comment on above: Result Comment: . Performed By: #### B NP3, TROPN, BMP3, HEMDF #### [facility] [address] [place] [address] Bilirubin,Urine Negative Normal Negative [facility] Comment on above: Result Comment: . Performed By: #### B NP3, TROPN, BMP3, HEMDF #### [facility] [address] [place] [address] Color (U) Yellow Normal Lt. Yellow [facility] Comment on above: Result Comment: . Performed By: #### B NP3, TROPN, BMP3, HEMDF #### [facility] [address] [place] [address] Glucose Ql (U) Normal Normal Normal (<70) [facility] Comment on above: Result Comment: . Performed By: #### B NP3, TROPN, BMP3, HEMDF #### [facility] [address] [place] [address] Ketone,Urine Negative Normal Negative [facility] Comment on above: Result Comment: . Performed By: #### B NP3, TROPN, BMP3, HEMDF #### [facility] [address] [place] [address] Leukocytes,Urine Negative Normal Negative [facility] Comment on above: Result Comment: . Performed By: #### B NP3, TROPN, BMP3, HEMDF #### [facility] [address] [place] [address] Nitrites,Urine Negative Normal Negative [facility] Comment on above: Result Comment: . Performed By: #### B NP3, TROPN, BMP3, HEMDF #### [facility] [address] [place] [address] Occult Blood,Urine Negative Normal Negative [facility] Comment on above: Result Comment: . Performed By: #### B NP3, TROPN, BMP3, HEMDF #### [facility] [address] [place] [address] pH,Urine 5.0 Normal 5.0-8.0 [facility] Comment on above: Result Comment: . Performed By: #### B NP3, TROPN, BMP3, HEMDF #### [facility] [address] [place] [address] Specific [place],Urine 1.012 Normal 1.005 - 1.030 [facility] Comment on above: Result Comment: . Performed By: #### B NP3, TROPN, BMP3, HEMDF #### [facility] [address] [place] [address] Total Protein,Urine Negative Normal Negative [facility] Comment on above: Result Comment: . Performed By: #### B NP3, TROPN, BMP3, HEMDF #### [facility] [address] [place] [address] Urobilinogen,Urine Normal Normal Normal (0-1) [facility] Comment on above: Result Comment: . Performed By: #### B NP3, TROPN, BMP3, HEMDF #### [facility] [address] [place] [address] ED Provider Noteon 1 ED Provider Note [...] provider's documentation. Jadon Lora DO 05/15/21 0410 [facility] ED Provider Note Emergency Department Encounter [facility] ED Patient: Megan Nascimento : 1940 Date of Evaluation: 05/13/2021 ED Provider: DASIA Dorado EDcare was supervised by Dr. Loar who independently examined and evaluated the patient. Please see their attestation note for further details. Chief Complaint Chief Complaint Patient presents with ? Urinary Retention ? Leg Swelling SITKA (Location/Symptom, Timing/Onset, Context/Setting, Quality, Duration, Modifying Factors, [...] is on a water pill, saw his heel pricker 2 weeks ago, and he was 15 pounds up, but his heel pricker Dr. Lucas was okay with that because [...] otherwise acutely negative except as in the SITKA. Past History Past Medical History: Diagnosis Date [...] Gatherings with Friends and Family: ? Attends Evangelical Services: ? Active Member of Clubs or [...] Inhale 2 (more content not included)... Normal [facility] Hemogram w/ Autodiffon 05-13 Abs Baso Cnt 0.0 10*3/uL Normal 0.0-0.2 [facility] Comment on above: Performed By: #### B NP3, TROPN, BMP3, HEMDF #### [facility] [address] [place] [address] Abs Neutrophile Cnt 3.5 10*3/uL Normal 1.8-7.0 [facility] Comment on above: Performed By: #### B NP3, TROPN, BMP3, HEMDF #### [facility] [address] [place] [address] Basophils/100 WBC (Bld) 0.8 % Normal 0.0-2.0 [facility] Comment on above: Performed By: #### B NP3, TROPN, BMP3, HEMDF #### [facility] [address] [place] [address] Eosinophils (Bld) [#/Vol] 0.3 10*3/uL Normal 0.0-0.5 [facility] Comment on above: Performed By: #### B NP3, TROPN, BMP3, HEMDF #### [facility] [address] [place] [address] Eosinophils/100 WBC (Bld) 5.9 % Normal 1.0-6.0 [facility] Comment on above: Performed By: #### B NP3, TROPN, BMP3, HEMDF #### [facility] [address] [place] [address] Erythrocyte distribution width (RBC) [Ratio] 18.3 % High 11.5-14.5 [facility] Comment on above: Performed By: #### B NP3, TROPN, BMP3, HEMDF #### [facility] [address] [place] [address] Granulocytes/100 WBC (Bld) 69.0 % Normal 40.0-80.0 [facility] Comment on above: Performed By: #### B NP3, TROPN, BMP3, HEMDF #### [facility] [address] [place] [address] Hematocrit (Bld) [Volume fraction] 37.8 % Low 40.0-52.0 [facility] Comment on above: Performed By: #### B NP3, TROPN, BMP3, HEMDF #### [facility] [address] [place] [address] Hemoglobin (Bld) [Mass/Vol] 12.2 g/dL Low 13.0-18.0 [facility] Comment on above: Performed By: #### B NP3, TROPN, BMP3, HEMDF #### [facility] [address] [place] [address] Lymphocytes (Bld) [#/Vol] 0.8 10*3/uL Low 1.0-4.3 [facility] Comment on above: Performed By: #### B NP3, TROPN, BMP3, HEMDF #### [facility] [address] [place] [address] Lymphocytes/100 WBC (Bld) 14.9 % Low 20.0-40.0 [facility] Comment on above: Performed By: #### B NP3, TROPN, BMP3, HEMDF #### [facility] [address] [place] [address] MCH (RBC) [Entitic mass] 29.7 pg Normal 26.0-34.0 [facility] Comment on above: Performed By: #### B NP3, TROPN, BMP3, HEMDF #### [facility] [address] [place] [address] MCHC 32.3 % Normal 32.0-36.0 [facility] Comment on above: Performed By: #### B NP3, TROPN, BMP3, HEMDF #### [facility] [address] [place] [address] MCV (RBC) [Entitic vol] 92.1 fL Normal 80.0-98.0 [facility] Comment on above: Performed By: #### B NP3, TROPN, BMP3, HEMDF #### [facility] [address] [place] [address] Monocytes (Bld) [#/Vol] 0.5 10*3/uL Normal 0.0-0.8 [facility] Comment on above: Performed By: #### B NP3, TROPN, BMP3, HEMDF #### [facility] [address] [place] [address] Monocytes/100 WBC (Bld) 9.4 % Normal 2.0-10.0 [facility] Comment on above: Performed By: #### B NP3, TROPN, BMP3, HEMDF #### [facility] [address] [place] [address] Platelet mean volume (Bld) [Entitic vol] 9.1 fL Normal 7.4-10.4 [facility] Comment on above: Performed By: #### B NP3, TROPN, BMP3, HEMDF #### [facility] [address] [place] [address] Platelets (Bld) [#/Vol] 252 10*3/uL Normal 140-440 [facility] Comment on above: Performed By: #### B NP3, TROPN, BMP3, HEMDF #### [facility] [address] [place] [address] RBC (Bld) [#/Vol] 4.11 10*6/uL Low 4.40-5.90 [facility] Comment on above: Performed By: #### B NP3, TROPN, BMP3, HEMDF #### [facility] [address] [place] [address] WBC (Bld) [#/Vol] 5.1 10*3/uL Normal 3.6-10.7 [facility] Comment on above: Performed By: #### B NP3, TROPN, BMP3, HEMDF #### [facility] [address] [place] [address] NT pro BNPon 05-13-2021 Natriuretic peptide B (Bld) [Mass/Vol] 69953 pg/mL High 0-450 [facility] Comment on above: Performed By: #### B NP3, TROPN, BMP3, HEMDF #### [facility] [address] [place] [address] Troponin Ion 05-13-2021 Troponin I.cardiac [Mass/Vol] 0.035 ng/mL High 0.000-0.034 [facility] Comment on above: Result Comment: . Performed By: #### B NP3, TROPN, BMP3, HEMDF #### [facility] [address] [place] [address] CULTURE BLOODon 02-04-2021 Microscopic examination of blood, culture CULTURE BLOOD --> Status: F No growth at 5 days. Normal [facility] Comment on above: Performed By: #### B NP3, TROPN, BMP3, HEMDF #### [facility] [address] [place] [address] CULTURE BLOOD (Two)on 2020 Microscopic examination of blood, culture CULTURE BLOOD (Two) --> Status: F No growth at 5 days. Normal [facility] Comment on above: Performed By: #### B GLU #### [facility] [address] [place] [address] Basic Metabolic Panelon 01-18 Anion gap [Moles/Vol] 6 mmol/L Normal 3-13 [facility] Comment on above: Performed By: #### B GLU #### [facility] [address] [place] [address] Calcium [Mass/Vol] 9.2 mg/dL Normal 8.4-10.4 [facility] Comment on above: Performed By: #### B GLU #### [facility] [address] [place] [address] CO2 [Moles/Vol] 34 mmol/L High 22-30 [facility] Comment on above: Performed By: #### B GLU #### [facility] [address] [place] [address] Glucose [Mass/Vol] 84 mg/dL Normal 70-100 [facility] Comment on above: Performed By: #### B GLU #### [facility] [address] [place] [address] Urea nitrogen [Mass/Vol] 49 mg/dL High 7-20 [facility] Comment on above: Performed By: #### B GLU #### [facility] [address] [place] [address] Creatinine [Mass/Vol] 2.60 mg/dL High 0.52-1.25 [facility] Comment on above: Performed By: #### B GLU #### [facility] [address] [place] [address] GFR/1.73 sq M.predicted among blacks MDRD (S/P/Bld) [Vol rate/Area] 25.5 mL/min/{1.73_m2} Abnormal >60 [facility] Comment on above: Performed By: #### B GLU #### [facility] [address] [place] [address] GFR/1.73 sq M.predicted among non-blacks MDRD (S/P/Bld) [Vol rate/Area] 22.0 mL/min/{1.73_m2} Abnormal >60 [facility] Comment on above: Result Comment: KDIG [...] secretion. Performed By: #### B GLU #### [facility] [address] [place] [address] Potassium [Moles/Vol] 3.1 mmol/L Low 3.5-5.1 [facility] Comment on above: Performed By: #### B GLU #### [facility] [address] [place] [address] Sodium [Moles/Vol] 135 mmol/L Normal 135-145 [facility] Comment on above: Performed By: #### B GLU #### [facility] [address] [place] [address] Chloride [Moles/Vol] 95 mmol/L Low 98-107 [facility] Comment on above: Performed By: #### B GLU #### [facility] [address] [place] [address] Hemogram w/ Autodiffon 02-01 Abs Baso Cnt 0.1 10*3/uL Normal 0.0-0.2 [facility] Comment on above: Performed By: #### B GLU #### [facility] [address] [place] [address] Abs Neutrophile Cnt 2.8 10*3/uL Normal 1.8-7.0 [facility] Comment on above: Performed By: #### B GLU #### [facility] [address] [place] [address] Basophils/100 WBC (Bld) 2.0 % Normal 0.0-2.0 [facility] Comment on above: Performed By: #### B GLU #### [facility] [address] [place] [address] Eosinophils (Bld) [#/Vol] 0.4 10*3/uL Normal 0.0-0.5 [facility] Comment on above: Performed By: #### B GLU #### [facility] [address] [place] [address] Eosinophils/100 WBC (Bld) 9.1 % High 1.0-6.0 [facility] Comment on above: Performed By: #### B GLU #### [facility] [address] [place] [address] Erythrocyte distribution width (RBC) [Ratio] 17.4 % High 11.5-14.5 [facility] Comment on above: Performed By: #### B GLU #### [facility] [address] [place] [address] Granulocytes/100 WBC (Bld) 61.3 % Normal 40.0-80.0 [facility] Comment on above: Performed By: #### B GLU #### [facility] [address] [place] [address] Hematocrit (Bld) [Volume fraction] 35.8 % Low 40.0-52.0 [facility] Comment on above: Performed By: #### B GLU #### [facility] [address] [place] [address] Hemoglobin (Bld) [Mass/Vol] 12.1 g/dL Low 13.0-18.0 [facility] Comment on above: Performed By: #### B GLU #### [place] [address] [place] [address] Lymphocytes (Bld) [#/Vol] 0.8 10*3/uL Low 1.0-4.3 [facility] Comment on above: Performed By: #### B GLU #### [facility] [address] [place] [address] Lymphocytes/100 WBC (Bld) 18.4 % Low 20.0-40.0 [facility] Comment on above: Performed By: #### B GLU #### [facility] [address] [place] [address] MCH (RBC) [Entitic mass] 30.9 pg Normal 26.0-34.0 [facility] Comment on above: Performed By: #### B GLU #### [facility] [address] [place] [address] MCHC 33.8 % Normal 32.0-36.0 [facility] Comment on above: Performed By: #### B GLU #### [facility] [address] [place] [address] MCV (RBC) [Entitic vol] 91.6 fL Normal 80.0-98.0 [facility] Comment on above: Performed By: #### B GLU #### [facility] [address] [place] [address] Monocytes (Bld) [#/Vol] 0.4 10*3/uL Normal 0.0-0.8 [facility] Comment on above: Performed By: #### B GLU #### [facility] [address] [place] [address] Monocytes/100 WBC (Bld) 9.2 % Normal 2.0-10.0 [facility] Comment on above: Performed By: #### B GLU #### [facility] [address] [place] [address] Platelet mean volume (Bld) [Entitic vol] 8.9 fL Normal 7.4-10.4 [facility] Comment on above: Performed By: #### B GLU #### [facility] [address] [place] [address] Platelets (Bld) [#/Vol] 193 10*3/uL Normal 140-440 [facility] Comment on above: Performed By: #### B GLU #### [facility] [address] [place] [address] RBC (Bld) [#/Vol] 3.91 10*6/uL Low 4.40-5.90 [facility] Comment on above: Performed By: #### B GLU #### [facility] [address] [place] [address] WBC (Bld) [#/Vol] 4.5 10*3/uL Normal 3.6-10.7 [facility] Comment on above: Performed By: #### B GLU #### [facility] [address] [place] [address] Basic Metabolic Panelon 01-18-2020 Calcium [Mass/Vol] 9.4 mg/dL Normal 8.4-10.4 [facility] Comment on above: Performed By: #### B NP3, TROPN, BMP3, HEMDF #### [facility] [address] [place] [address] Glucose [Mass/Vol] 95 mg/dL Normal 70-100 [facility] Comment on above: Performed By: #### B NP3, TROPN, BMP3, HEMDF #### [facility] [address] [place] [address] Urea nitrogen [Mass/Vol] 51 mg/dL High 7-20 [facility] Comment on above: Performed By: #### B NP3, TROPN, BMP3, HEMDF #### [facility] [address] [place] [address] Anion gap [Moles/Vol] 9 mmol/L Normal 3-13 [facility] Comment on above: Performed By: #### B NP3, TROPN, BMP3, HEMDF #### [facility] [address] [place] [address] CO2 [Moles/Vol] 30 mmol/L Normal 22-30 [facility] Comment on above: Performed By: #### B NP3, TROPN, BMP3, HEMDF #### [facility] [address] [place] [address] Creatinine [Mass/Vol] 2.58 mg/dL High 0.52-1.25 [facility] Comment on above: Performed By: #### B NP3, TROPN, BMP3, HEMDF #### [facility] [address] [place] [address] GFR/1.73 sq M.predicted among blacks MDRD (S/P/Bld) [Vol rate/Area] 25.8 mL/min/{1.73_m2} Abnormal >60 [facility] Comment on above: Performed By: #### B NP3, TROPN, BMP3, HEMDF #### [facility] [address] [place] [address] GFR/1.73 sq M.predicted among non-blacks MDRD (S/P/Bld) [Vol rate/Area] 22.2 mL/min/{1.73_m2} Abnormal >60 [facility] Comment on above: Result Comment: KDIG [...] #### B NP3, TROPN, BMP3, HEMDF #### [facility] [address] [place] [address] Chloride [Moles/Vol] 99 mmol/L Normal 98-107 [facility] Comment on above: Performed By: #### B NP3, TROPN, BMP3, HEMDF #### [facility] [address] [place] [address] Potassium [Moles/Vol] 4.0 mmol/L Normal 3.5-5.1 [facility] Comment on above: Performed By: #### B NP3, TROPN, BMP3, HEMDF #### [facility] [address] [place] [address] Sodium [Moles/Vol] 138 mmol/L Normal 135-145 [facility] Comment on above: Performed By: #### B NP3, TROPN, BMP3, HEMDF #### [facility] [address] [place] [address] Hemogram w/ Autodiffon 01-31 Abs Baso Cnt 0.0 10*3/uL Normal 0.0-0.2 [facility] Comment on above: Performed By: #### B NP3, TROPN, BMP3, HEMDF #### [facility] [address] [place] [address] Abs Neutrophile Cnt 2.5 10*3/uL Normal 1.8-7.0 [facility] Comment on above: Performed By: #### B NP3, TROPN, BMP3, HEMDF #### [facility] [address] [place] [address] Basophils/100 WBC (Bld) 0.7 % Normal 0.0-2.0 [facility] Comment on above: Performed By: #### B NP3, TROPN, BMP3, HEMDF #### [facility] [address] [place] [address] Eosinophils (Bld) [#/Vol] 0.3 10*3/uL Normal 0.0-0.5 [facility] Comment on above: Performed By: #### B NP3, TROPN, BMP3, HEMDF #### [facility] [address] [place] [address] Eosinophils/100 WBC (Bld) 6.5 % High 1.0-6.0 [facility] Comment on above: Performed By: #### B NP3, TROPN, BMP3, HEMDF #### [facility] [address] [place] [address] Erythrocyte distribution width (RBC) [Ratio] 17.8 % High 11.5-14.5 [facility] Comment on above: Performed By: #### B NP3, TROPN, BMP3, HEMDF #### [facility] [address] [place] [address] Granulocytes/100 WBC (Bld) 63.7 % Normal 40.0-80.0 [facility] Comment on above: Performed By: #### B NP3, TROPN, BMP3, HEMDF #### [facility] [address] [place] [address] Hematocrit (Bld) [Volume fraction] 37.5 % Low 40.0-52.0 [facility] Comment on above: Performed By: #### B NP3, TROPN, BMP3, HEMDF #### [facility] [address] [place] [address] Hemoglobin (Bld) [Mass/Vol] 12.7 g/dL Low 13.0-18.0 [facility] Comment on above: Performed By: #### B NP3, TROPN, BMP3, HEMDF #### [facility] [address] [place] [address] Lymphocytes (Bld) [#/Vol] 0.7 10*3/uL Low 1.0-4.3 [facility] Comment on above: Performed By: #### B NP3, TROPN, BMP3, HEMDF #### [facility] [address] [place] [address] Lymphocytes/100 WBC (Bld) 18.0 % Low 20.0-40.0 [facility] Comment on above: Performed By: #### B NP3, TROPN, BMP3, HEMDF #### [facility] [address] [place] [address] MCH (RBC) [Entitic mass] 31.3 pg Normal 26.0-34.0 [facility] Comment on above: Performed By: #### B NP3, TROPN, BMP3, HEMDF #### [facility] [address] [place] [address] MCHC 33.8 % Normal 32.0-36.0 [facility] Comment on above: Performed By: #### B NP3, TROPN, BMP3, HEMDF #### [facility] [address] [place] [address] MCV (RBC) [Entitic vol] 92.7 fL Normal 80.0-98.0 [facility] Comment on above: Performed By: #### B NP3, TROPN, BMP3, HEMDF #### [facility] [address] [place] [address] Monocytes (Bld) [#/Vol] 0.4 10*3/uL Normal 0.0-0.8 [facility] Comment on above: Performed By: #### B NP3, TROPN, BMP3, HEMDF #### [facility] [address] [place] [address] Monocytes/100 WBC (Bld) 11.1 % High 2.0-10.0 [facility] Comment on above: Performed By: #### B NP3, TROPN, BMP3, HEMDF #### [facility] [address] [place] [address] Platelet mean volume (Bld) [Entitic vol] 8.9 fL Normal 7.4-10.4 [facility] Comment on above: Performed By: #### B NP3, TROPN, BMP3, HEMDF #### [facility] [address] [place] [address] Platelets (Bld) [#/Vol] 182 10*3/uL Normal 140-440 [facility] Comment on above: Performed By: #### B NP3, TROPN, BMP3, HEMDF #### [facility] [address] [place] [address] RBC (Bld) [#/Vol] 4.04 10*6/uL Low 4.40-5.90 [facility] Comment on above: Performed By: #### B NP3, TROPN, BMP3, HEMDF #### [facility] [address] [place] [address] WBC (Bld) [#/Vol] 3.9 10*3/uL Normal 3.6-10.7 [facility] Comment on above: Performed By: #### B NP3, TROPN, BMP3, HEMDF #### [facility] [address] [place] [address] Hepatic Functionon 1 ALP [Catalytic activity/Vol] 85 U/L Normal 38-126 [facility] Comment on above: Performed By: #### B NP3, TROPN, BMP3, HEMDF #### [facility] [address] [place] [address] ALT [Catalytic activity/Vol] 16 U/L Normal 0-49 [facility] Comment on above: Result Comment: The ALT test is performed by an updated assay method. Please note that the reference intervals have been changed and are now sex specific. Performed By: #### B NP3, TROPN, BMP3, HEMDF #### [facility] [address] [place] [address] AST [Catalytic activity/Vol] 29 U/L Normal 15-46 [facility] Comment on above: Performed By: #### B NP3, TROPN, BMP3, HEMDF #### [facility] [address] [place] [address] Bilirubin [Mass/Vol] 2.0 mg/dL High 0.2-1.3 [facility] Comment on above: Performed By: #### B NP3, TROPN, BMP3, HEMDF #### [facility] [address] [place] [address] Bilirubin.indirect [Mass/Vol] 0.0 mg/dL Normal 0.0-0.3 [facility] Comment on above: Performed By: #### B NP3, TROPN, BMP3, HEMDF #### [facility] [address] [place] [address] Protein [Mass/Vol] 6.9 g/dL Normal 6.3-8.2 [facility] Comment on above: Performed By: #### B NP3, TROPN, BMP3, HEMDF #### [facility] [address] [place] [address] Albumin [Mass/Vol] 3.9 g/dL Normal 3.5-5.0 [facility] Comment on above: Performed By: #### B NP3, TROPN, BMP3, HEMDF #### [facility] [address] [place] [address] Lactic Acidon 01-31-2021 Lactate [Moles/Vol] 2.2 mmol/L Critically high 0.7-2.0 [facility] Comment on above: Performed By: #### T ROPN, LACT3 #### [facility] [address] [place] [address] Troponin Ion 01-31-2021 Troponin I.cardiac [Mass/Vol] 0.027 ng/mL Normal 0.000-0.034 [facility] Comment on above: Result Comment: . Performed By: #### B GLU #### [facility] [address] [place] [address] CR Chest Portableon 01-31-20 CR Chest Portable Patient Name: MEGAN NASCIMENTO Diagnostic Radiology ACCESSION EXAM DATE/TIME PROCEDURE ORDERING PROVIDER [id number] 01/30/2021 07:12 EDT CR Chest Portable MD CHRIS, FRANCI [place] CPT code 59960 Reason For Exam (CR Chest Portable) n/v [...] Transcribed Date and Time: 01/30/2021 7:21 Normal [facility] CT Abdomen/Pelvis w/o Contra ston 01-30-2021 CT Abdomen/Pelvis w/o Contrast Patient Name: MEGAN NASCIMENTO Computed Tomography ACCESSION EXAM DATE/TIME PROCEDURE ORDERING PROVIDER [id number] 01/30/2021 06:[address] Abdomen/Pelvis (Dinora MENDOZA MD, FRANCI [place] PO, No IV) CPT code 81878 Reason For Exam (CT Abdomen/Pelvis (No PO, [...] Vivienne Radiol 2018;15([id number] Report Dictated on Workstation: [id number] Final Dictating Physician: MD JO KEVIN Signed Date and Time: 01/30/2021 6:58 am Signed by: MD JO KEVIN Transcribed Date and Time: 01/30/2021 6:59 Normal [facility] Comp Metabolic Panelon 01-30 Calcium [Mass/Vol] 10.5 mg/dL High 8.4-10.4 [facility] Comment on above: Performed By: #### B GLU #### [facility] [address] [place] [address] ALP [Catalytic activity/Vol] 137 U/L High 38-126 [facility] Comment on above: Performed By: #### B GLU #### [facility] [address] [place] [address] ALT [Catalytic activity/Vol] 21 U/L Normal 0-49 [facility] Comment on above: Result Comment: The ALT test is performed by an updated assay method. Please note that the reference intervals have been changed and are now sex specific. Performed By: #### B GLU #### [facility] [address] [place] [address] Anion gap [Moles/Vol] 16 mmol/L High 3-13 [facility] Comment on above: Performed By: #### B GLU #### [facility] [address] [place] [address] AST [Catalytic activity/Vol] 46 U/L Normal 15-46 [facility] Comment on above: Performed By: #### B GLU #### [facility] [address] [place] [address] Bilirubin [Mass/Vol] 3.1 mg/dL High 0.2-1.3 [facility] Comment on above: Performed By: #### B GLU #### [facility] [address] [place] [address] CO2 [Moles/Vol] 26 mmol/L Normal 22-30 [facility] Comment on above: Performed By: #### B GLU #### [facility] [address] [place] [address] Creatinine [Mass/Vol] 2.52 mg/dL High 0.52-1.25 [facility] Comment on above: Performed By: #### B GLU #### [facility] [address] [place] [address] GFR/1.73 sq M.predicted among blacks MDRD (S/P/Bld) [Vol rate/Area] 26.5 mL/min/{1.73_m2} Abnormal >60 [facility] Comment on above: Performed By: #### B GLU #### [facility] [address] [place] [address] GFR/1.73 sq M.predicted among non-blacks MDRD (S/P/Bld) [Vol rate/Area] 22.9 mL/min/{1.73_m2} Abnormal >60 [facility] Comment on above: Result Comment: KDIG [...] secretion. Performed By: #### B GLU #### [facility] [address] [place] [address] Glucose [Mass/Vol] 99 mg/dL Normal 70-100 [facility] Comment on above: Performed By: #### B GLU #### [facility] [address] [place] [address] Protein [Mass/Vol] 8.9 g/dL High 6.3-8.2 [facility] Comment on above: Performed By: #### B GLU #### [facility] [address] [place] [address] Urea nitrogen [Mass/Vol] 50 mg/dL High 7-20 [facility] Comment on above: Performed By: #### B GLU #### [facility] [address] [place] [address] Albumin [Mass/Vol] 4.9 g/dL Normal 3.5-5.0 [facility] Comment on above: Performed By: #### B GLU #### [facility] [address] [place] [address] Chloride [Moles/Vol] 96 mmol/L Low 98-107 [facility] Comment on above: Performed By: #### B GLU #### [facility] [address] [place] [address] Potassium [Moles/Vol] 4.6 mmol/L Normal 3.5-5.1 [facility] Comment on above: Performed By: #### B GLU #### [facility] [address] [place] [address] Sodium [Moles/Vol] 138 mmol/L Normal 135-145 [facility] Comment on above: Performed By: #### B GLU #### [facility] [address] [place] [address] ED Provider Noteon 1 ED Provider Note [...] Gatherings with Friends and Family: ? Attends Evangelical Services: ? Active Member of Clubs or Organizations: ? Attends Club or Organization Meetings: (more content not included)... Normal [facility] Hemogram w/ Autodiffon 01-30 Abs Baso Cnt 0.1 10*3/uL Normal 0.0-0.2 [facility] Comment on above: Performed By: #### B GLU #### [facility] [address] [place] [address] Abs Neutrophile Cnt 3.6 10*3/uL Normal 1.8-7.0 [facility] Comment on above: Performed By: #### B GLU #### [facility] [address] [place] [address] Basophils/100 WBC (Bld) 1.4 % Normal 0.0-2.0 [facility] Comment on above: Performed By: #### B GLU #### [facility] [address] [place] [address] Eosinophils (Bld) [#/Vol] 0.2 10*3/uL Normal 0.0-0.5 [facility] Comment on above: Performed By: #### B GLU #### [facility] [address] [place] [address] Eosinophils/100 WBC (Bld) 3.7 % Normal 1.0-6.0 [facility] Comment on above: Performed By: #### B GLU #### [facility] [address] [place] [address] Erythrocyte distribution width (RBC) [Ratio] 17.8 % High 11.5-14.5 [facility] Comment on above: Performed By: #### B GLU #### [facility] [address] [place] [address] Granulocytes/100 WBC (Bld) 65.9 % Normal 40.0-80.0 [facility] Comment on above: Performed By: #### B GLU #### [facility] [address] [place] [address] Hematocrit (Bld) [Volume fraction] 43.9 % Normal 40.0-52.0 [facility] Comment on above: Performed By: #### B GLU #### [facility] [address] [place] [address] Hemoglobin (Bld) [Mass/Vol] 14.6 g/dL Normal 13.0-18.0 [facility] Comment on above: Performed By: #### B GLU #### [facility] [address] [place] [address] Lymphocytes (Bld) [#/Vol] 1.0 10*3/uL Normal 1.0-4.3 [facility] Comment on above: Performed By: #### B GLU #### [facility] [address] [place] [address] Lymphocytes/100 WBC (Bld) 19.2 % Low 20.0-40.0 [facility] Comment on above: Performed By: #### B GLU #### [facility] [address] [place] [address] MCH (RBC) [Entitic mass] 30.6 pg Normal 26.0-34.0 [facility] Comment on above: Performed By: #### B GLU #### [facility] [address] [place] [address] MCHC 33.2 % Normal 32.0-36.0 [facility] Comment on above: Performed By: #### B GLU #### [facility] [address] [place] [address] MCV (RBC) [Entitic vol] 92.2 fL Normal 80.0-98.0 [facility] Comment on above: Performed By: #### B GLU #### [facility] [address] [place] [address] Monocytes (Bld) [#/Vol] 0.5 10*3/uL Normal 0.0-0.8 [facility] Comment on above: Performed By: #### B GLU #### [facility] [address] [place] [address] Monocytes/100 WBC (Bld) 9.8 % Normal 2.0-10.0 [facility] Comment on above: Performed By: #### B GLU #### [facility] [address] [place] [address] Platelet mean volume (Bld) [Entitic vol] 9.1 fL Normal 7.4-10.4 [facility] Comment on above: Performed By: #### B GLU #### [facility] [address] [place] [address] Platelets (Bld) [#/Vol] 226 10*3/uL Normal 140-440 [facility] Comment on above: Performed By: #### B GLU #### [facility] [address] [place] [address] RBC (Bld) [#/Vol] 4.77 10*6/uL Normal 4.40-5.90 [facility] Comment on above: Performed By: #### B GLU #### [facility] [address] [place] [address] WBC (Bld) [#/Vol] 5.4 10*3/uL Normal 3.6-10.7 [facility] Comment on above: Performed By: #### B GLU #### [facility] [address] [place] [address] Lactic Acidon 01-30-2021 Lactate [Moles/Vol] 3.3 mmol/L Critically high 0.7-2.0 [facility] Comment on above: Performed By: #### B GLU #### [facility] [address] [place] [address] Lactic Acid, Sepsison 2020 Lactate [Moles/Vol] 2.4 mmol/L Critically high 0.7-2.0 [facility] Comment on above: Performed By: #### L IPD2, BMP3, MG3 #### [facility] [address] [place] [address] Lactate [Moles/Vol] 2.8 mmol/L Critically high 0.7-2.0 [facility] Comment on above: Performed By: #### B GLU #### [facility] [address] [place] [address] Lipaseon 01-30-2021 Lipase [Catalytic activity/Vol] 179 U/L Normal 23-300 [facility] Comment on above: Performed By: #### B GLU #### [facility] [address] [place] [address] Troponin Ion 01-30-2021 Troponin I.cardiac [Mass/Vol] 0.039 ng/mL High 0.000-0.034 [facility] Comment on above: Result Comment: . Performed By: #### B GLU #### [facility] [address] [place] [address] US Abdomen Limitedon 021 US Abdomen Limited Patient Name: MEGAN NASCIMENTO Ultrasound ACCESSION EXAM DATE/TIME PROCEDURE ORDERING PROVIDER [id number] 01/30/2021 07:25 EDT US Abdomen Limited MD MENDOZA KEVIN G CPT code 23132 Reason For Exam (US Abdomen Limited) right [...] Transcribed Date and Time: 01/30/2021 7:38 Normal [facility] Basic Metabolic Panelon 03-0 Calcium [Mass/Vol] 9.5 mg/dL Normal 8.4-10.4 [facility] Comment on above: Performed By: #### L IPD2, BMP3, MG3 #### [facility] [address] [place] [address] Anion gap [Moles/Vol] 11 mmol/L Normal 3-13 [facility] Comment on above: Performed By: #### L IPD2, BMP3, MG3 #### [facility] [address] [place] [address] CO2 [Moles/Vol] 35 mmol/L High 22-30 [facility] Comment on above: Performed By: #### L IPD2, BMP3, MG3 #### [facility] [address] [place] [address] Creatinine [Mass/Vol] 2.14 mg/dL High 0.52-1.25 [facility] Comment on above: Performed By: #### L IPD2, BMP3, MG3 #### [facility] [email or web address] [facility] [address] [place] [address] GFR/1.73 sq M.predicted among blacks MDRD (S/P/Bld) [Vol rate/Area] 32.4 mL/min/{1.73_m2} Abnormal >60 [facility] Comment on above: Performed By: #### L IPD2, BMP3, MG3 #### [facility] [email or web address] [facility] [address] [place] [address] GFR/1.73 sq M.predicted among non-blacks MDRD (S/P/Bld) [Vol rate/Area] 27.9 mL/min/{1.73_m2} Abnormal >60 [facility] Comment on above: Result Comment: KDIG [...] By: #### L IPD2, BMP3, MG3 #### [facility] [email or web address] [facility] [address] [place] [address] Glucose [Mass/Vol] 115 mg/dL High 70-100 [facility] Comment on above: Performed By: #### L IPD2, BMP3, MG3 #### [facility] [address] [place] [address] Urea nitrogen [Mass/Vol] 41 mg/dL High 7-20 [facility] Comment on above: Performed By: #### L IPD2, BMP3, MG3 #### [facility] [email or web address] [facility] [address] [place] [address] Chloride [Moles/Vol] 94 mmol/L Low 98-107 [facility] Comment on above: Performed By: #### L IPD2, BMP3, MG3 #### [facility] [address] [place] [address] Potassium [Moles/Vol] 4.3 mmol/L Normal 3.5-5.1 [facility] Comment on above: Performed By: #### L IPD2, BMP3, MG3 #### [facility] [address] [place] [address] Sodium [Moles/Vol] 139 mmol/L Normal 135-145 [facility] Comment on above: Performed By: #### L IPD2, BMP3, MG3 #### [facility] [address] [place] [address] Anion gap [Moles/Vol] 11 mmol/L 3 - 13 mmol/L [facility] Work Phone: Calcium [Mass/Vol] 9.5 mg/dL 8.4 - 10. 4 mg/dL [facility] Work Phone: Chloride [Moles/Vol] 94 mmol/L Low 98 - 10 7 mmol/L [facility] Work Phone: CO2 [Moles/Vol] 35 mmol/L High 22 - 30 mmol/L [facility] Work Phone: Creatinine [Mass/Vol] 2.14 mg/dL High 0.52 - 1.25 mg/dL [facility] Work Phone: EGFR IF NonAfrican [place]oan 27.9 mL/min Abnormal >60 [facility] Work Phone: Comment on above: KDIGO guidelines [...] (Bld) 67.3 % 40.0 - 80.0 % [employer] Work Phone: Hematocrit (Bld) [Volume fraction] 36.4 % Low 40.0 - 52.0 % [employer] Work Phone: Hemoglobin (Bld) [Mass/Vol] 11.6 g/dL Low 13.0 - 18.0 g/dL [employer] Work Phone: Interpretation and review of laboratory results Abnormal [employer] Work Phone: Lymphocytes (Bld) [#/Vol] 1.2 10*3/uL 1.0 - 4.3 10*3/uL [employer] Work Phone: Lymphocytes/100 WBC (Bld) 19.9 % Low 20.0 - 40.0 % [employer] Work Phone: MCH (RBC) [Entitic mass] 26.7 pg 26. 0 - 34.0 pg [employer] Work Phone: MCHC (RBC) [Mass/Vol] 31.9 % Low 32.0 - 36.0 % [employer] Work Phone: MCV (RBC) [Entitic vol] 83.5 fL 80.0 - 98.0 fL [employer] Work Phone: Monocytes (Bld) [#/Vol] 0.4 10*3/uL 0.0 - 0.8 10*3/uL [employer] Work Phone: Monocytes/100 WBC (Bld) 6.5 % 2.0 - 10.0 % [employer] Work Phone: Platelet mean volume (Bld) [Entitic vol] 8.6 fL 7.4 - 10.4 fL [employer] Work Phone: Platelets (Bld) [#/Vol] 261 10*3/uL 140 - 440 10*3/uL [employer] Work Phone: RBC (Bld) [#/Vol] 4.36 10*6/uL Low 4.40 - 5.9 0 10*6/uL [employer] Work Phone: WBC (Bld) [#/Vol] 6.2 10*3/uL 3.6 - 10.7 10*3/uL [facility] Work Phone: Test Performed by [facility] [employer], [address] [place] [address] [facility] Work Phone: Hemogram w/ Autodiffon 09-26 Abs Baso Cnt 0.1 10*3/uL Normal 0.0-0.2 [facility] Comment on above: Performed By: #### L IPD2, BMP3, MG3 #### [facility] [employer] [address] [place] [address] Abs Neutrophile Cnt 4.2 10*3/uL Normal 1.8-7.0 [facility] Comment on above: Performed By: #### L IPD2, BMP3, MG3 #### [facility] [employer] [address] [place] [address] Basophils/100 WBC (Bld) 0.8 % Normal 0.0-2.0 [facility] Comment on above: Performed By: #### L IPD2, BMP3, MG3 #### [facility] [employer] [address] [place] [address] Eosinophils (Bld) [#/Vol] 0.3 10*3/uL Normal 0.0-0.5 [facility] Comment on above: Performed By: #### L IPD2, BMP3, MG3 #### [facility] [employer] [address] [place] [address] Eosinophils/100 WBC (Bld) 5.5 % Normal 1.0-6.0 [facility] Comment on above: Performed By: #### L IPD2, BMP3, MG3 #### [facility] [employer] [address] [place] [address] Erythrocyte distribution width (RBC) [Ratio] 33.6 % High 11.5-14.5 [facility] Comment on above: Performed By: #### L IPD2, BMP3, MG3 #### [facility] [email or web address] [facility] [address] [place] [address] Granulocytes/100 WBC (Bld) 67.3 % Normal 40.0-80.0 [facility] Comment on above: Performed By: #### L IPD2, BMP3, MG3 #### [facility] [address] [place] [address] Hematocrit (Bld) [Volume fraction] 36.4 % Low 40.0-52.0 [facility] Comment on above: Performed By: #### L IPD2, BMP3, MG3 #### [facility] [address] [place] [address] Hemoglobin (Bld) [Mass/Vol] 11.6 g/dL Low 13.0-18.0 [facility] Comment on above: Performed By: #### L IPD2, BMP3, MG3 #### [facility] [address] [place] [address] Lymphocytes (Bld) [#/Vol] 1.2 10*3/uL Normal 1.0-4.3 [facility] Comment on above: Performed By: #### L IPD2, BMP3, MG3 #### [facility] [address] [place] [address] Lymphocytes/100 WBC (Bld) 19.9 % Low 20.0-40.0 [facility] Comment on above: Performed By: #### L IPD2, BMP3, MG3 #### [facility] [address] [place] [address] MCH (RBC) [Entitic mass] 26.7 pg Normal 26.0-34.0 [facility] Comment on above: Performed By: #### L IPD2, BMP3, MG3 #### [facility] [address] [place] [address] MCHC 31.9 % Low 32.0-36.0 [facility] Comment on above: Performed By: #### L IPD2, BMP3, MG3 #### [facility] [address] [place] [address] MCV (RBC) [Entitic vol] 83.5 fL Normal 80.0-98.0 [facility] Comment on above: Performed By: #### L IPD2, BMP3, MG3 #### [facility] [address] [place] [address] Monocytes (Bld) [#/Vol] 0.4 10*3/uL Normal 0.0-0.8 [facility] Comment on above: Performed By: #### L IPD2, BMP3, MG3 #### [facility] [address] [place] [address] Monocytes/100 WBC (Bld) 6.5 % Normal 2.0-10.0 [facility] Comment on above: Performed By: #### L IPD2, BMP3, MG3 #### [facility] [address] [place] [address] Platelet mean volume (Bld) [Entitic vol] 8.6 fL Normal 7.4-10.4 [facility] Comment on above: Performed By: #### L IPD2, BMP3, MG3 #### [facility] [address] [place] [address] Platelets (Bld) [#/Vol] 261 10*3/uL Normal 140-440 [facility] Comment on above: Performed By: #### L IPD2, BMP3, MG3 #### [facility] [address] [place] [address] RBC (Bld) [#/Vol] 4.36 10*6/uL Low 4.40-5.90 [facility] Comment on above: Performed By: #### L IPD2, BMP3, MG3 #### [facility] [address] [place] [address] WBC (Bld) [#/Vol] 6.2 10*3/uL Normal 3.6-10.7 [facility] Comment on above: Performed By: #### L IPD2, BMP3, MG3 #### [facility] [address] [place] [address] Magnesiumon 09-26-2020 Magnesium [Mass/Vol] 1.9 mg/dL Normal 1.6-2.3 [facility] Comment on above: Performed By: #### L IPD2, BMP3, MG3 #### [facility] [address] [place] [address] Magnesium [Mass/Vol] 1.9 mg/dL 1.6 - 2 .3 mg/dL [facility] Work Phone: Metabolic Panelon 09-26-2020 Sodium [Moles/Vol] Slight [facility] Work Phone: Otheron 09-26-2020 Test Performed by [employer], [address] [place] [address] [facility] Work Phone: RBC MORPHOLOGYon 09-26-2020 Anisocytosis Ql (Bld) Marked [facility] Work Phone: RBC morphology finding Nom (Bld) ABNORMAL [facility] Work Phone: Sodium [Moles/Vol] Moderate [facility] Work Phone: Test Performed by [employer], [address] [place], [place] [address] [facility] Work Phone: RBC Morphologyon 09-26-2020 Anisocytosis Ql (Bld) Marked Normal [facility] Comment on above: Performed By: #### L IPD2, BMP3, MG3 #### [employer] [address] [place] [address] Elliptocytes Slight Normal [facility] Comment on above: Performed By: #### L IPD2, BMP3, MG3 #### [employer] [facility] [address] [place] [address] Hypochromia Slight Normal [facility] Comment on above: Performed By: #### L IPD2, BMP3, MG3 #### [employer] [facility] [address] [place] [address] Ovalocytes Slight Normal [facility] Comment on above: Performed By: #### L IPD2, BMP3, MG3 #### [employer] [facility] [address] [place] [address] Poikilocytosis Moderate [facility] Comment on above: Performed By: #### L IPD2, BMP3, MG3 #### [employer] [facility] [address] [place] [address] Polychromasia Slight Normal [facility] Comment on above: Performed By: #### L IPD2, BMP3, MG3 #### [facility] [address] [place] [address] RBC morphology finding Nom (Bld) ABNORMAL Normal [facility] Comment on above: Performed By: #### L IPD2, BMP3, MG3 #### [facility] [address] [place] [address] Schistocytes Slight Normal [facility] Comment on above: Performed By: #### L IPD2, BMP3, MG3 #### [facility] [address] [place] [address] Target Cells Slight Normal [facility] Comment on above: Performed By: #### L IPD2, BMP3, MG3 #### [facility] [address] [place] [address] Basic Metabolic Panelon 03-0 -2020 Calcium [Mass/Vol] 9.0 mg/dL Normal 8.4-10.4 [facility] Comment on above: Performed By: #### L IPD2, BMP3, MG3 #### [facility] [address] [place] [address] Anion gap [Moles/Vol] 7 mmol/L Normal 3-13 [facility] Comment on above: Performed By: #### L IPD2, BMP3, MG3 #### [facility] [address] [place] [address] CO2 [Moles/Vol] 34 mmol/L High 22-30 [facility] Comment on above: Performed By: #### L IPD2, BMP3, MG3 #### [facility] [address] [place] [address] Creatinine [Mass/Vol] 2.12 mg/dL High 0.52-1.25 [facility] Comment on above: Performed By: #### L IPD2, BMP3, MG3 #### [facility] [address] [place] [address] GFR/1.73 sq M.predicted among blacks MDRD (S/P/Bld) [Vol rate/Area] 32.8 mL/min/{1.73_m2} Abnormal >60 [facility] Comment on above: Performed By: #### L IPD2, BMP3, MG3 #### [facility] [address] [place] [address] GFR/1.73 sq M.predicted among non-blacks MDRD (S/P/Bld) [Vol rate/Area] 28.3 mL/min/{1.73_m2} Abnormal >60 [facility] Comment on above: Result Comment: KDIG [...] By: #### L IPD2, BMP3, MG3 #### [facility] [address] [place] [address] Glucose [Mass/Vol] 126 mg/dL High 70-100 [facility] Comment on above: Performed By: #### L IPD2, BMP3, MG3 #### [facility] [address] [place] [address] Urea nitrogen [Mass/Vol] 38 mg/dL High 7-20 [facility] Comment on above: Performed By: #### L IPD2, BMP3, MG3 #### [facility] [address] [place] [address] Chloride [Moles/Vol] 95 mmol/L Low 98-107 [facility] Comment on above: Performed By: #### L IPD2, BMP3, MG3 #### [facility] [address] [place] [address] Potassium [Moles/Vol] 3.2 mmol/L Low 3.5-5.1 [facility] Comment on above: Performed By: #### L IPD2, BMP3, MG3 #### [facility] [address] [place] [address] Sodium [Moles/Vol] 136 mmol/L Normal 135-145 [facility] Comment on above: Performed By: #### L IPD2, BMP3, MG3 #### [facility] [address] [place] [address] Anion gap [Moles/Vol] 7 mmol/L 3 - 13 mmol/L [facility] Work Phone: Calcium [Mass/Vol] 9.0 mg/dL 8.4 - 10. 4 mg/dL [facility] Work Phone: Chloride [Moles/Vol] 95 mmol/L Low 98 - 10 7 mmol/L [facility] Work Phone: CO2 [Moles/Vol] 34 mmol/L High 22 - 30 mmol/L [facility] Work Phone: Creatinine [Mass/Vol] 2.12 mg/dL High 0.52 - 1.25 mg/dL [facility] Work Phone: EGFR IF NonAfrican [place]oan 28.3 mL/min Abnormal >60 [facility] Work Phone: Comment on above: KDIGO [...] 126 mg/dL High 70 - 100 mg/dL [employer] Work Phone: Interpretation and review of laboratory results Abnormal [employer] Work Phone: Potassium [Moles/Vol] 3.2 mmol/L Low 3.5 - 5.1 mmol/L [facility] Work Phone: Sodium [Moles/Vol] 136 mmol/L 135 - 145 mmol/L [facility] Work Phone: Urea nitrogen [Mass/Vol] 38 mg/dL High 7 - 20 mg/d L [employer] Work Phone: CBC Auto Differentialon 03-0 Absolute Baso # 0.1 10*3/uL 0.0 - 0.2 10*3/uL [employer] Work Phone: Absolute Neut # 3.6 10*3/uL 1.8 - 7.0 10*3/uL [employer] Work Phone: Basophils/100 WBC (Bld) 2.4 % High 0.0 - 2.0 % [employer] Work Phone: Eosinophils (Bld) [#/Vol] 0.3 10*3/uL 0.0 - 0.5 10*3/uL [employer] Work Phone: Eosinophils/100 WBC (Bld) 4.9 % 1.0 - 6.0 % [employer] Work Phone: Erythrocyte distribution width (RBC) [Ratio] 33.5 % High 11.5 - 14.5 % [employer] Work Phone: Granulocytes/100 WBC (Bld) 67.9 % 40.0 - 80.0 % [employer] Work Phone: Hematocrit (Bld) [Volume fraction] 35.0 % Low 40.0 - 52.0 % [employer] Work Phone: Hemoglobin (Bld) [Mass/Vol] 11.1 g/dL Low 13.0 - 18.0 g/dL [employer] Work Phone: Interpretation and review of laboratory results Abnormal [employer] Work Phone: [phone] Lymphocytes (Bld) [#/Vol] 1.0 10*3/uL 1.0 - 4.3 10*3/uL [employer] Work Phone: [phone] Lymphocytes/100 WBC (Bld) 18.0 % Low 20.0 - 40.0 % [employer] Work Phone: MCH (RBC) [Entitic mass] 26.7 pg 26. 0 - 34.0 pg [employer] Work Phone: MCHC (RBC) [Mass/Vol] 31.7 % Low 32.0 - 36.0 % [employer] Work Phone: MCV (RBC) [Entitic vol] 84.2 fL 80.0 - 98.0 fL [employer] Work Phone: [phone] Monocytes (Bld) [#/Vol] 0.4 10*3/uL 0.0 - 0.8 10*3/uL [employer] Work Phone: Monocytes/100 WBC (Bld) 6.8 % 2.0 - 10.0 % [employer] Work Phone: Platelet mean volume (Bld) [Entitic vol] 8.9 fL 7.4 - 10.4 fL [employer] Work Phone: [phone] Platelets (Bld) [#/Vol] 223 10*3/uL 140 - 440 10*3/uL [employer] Work Phone: RBC (Bld) [#/Vol] 4.16 10*6/uL Low 4.40 - 5.9 0 10*6/uL [employer] Work Phone: WBC (Bld) [#/Vol] 5.3 10*3/uL 3.6 - 10.7 10*3/uL [employer] Work Phone: Test Performed by [employer] [facility], [address] [place] [id number] [facility] Work Phone: Hemogram w/ Autodiffon 09-25 Abs Baso Cnt 0.1 10*3/uL Normal 0.0-0.2 [facility] Comment on above: Performed By: #### L IPD2, BMP3, MG3 #### [facility] [address] [place] [address] Abs Neutrophile Cnt 3.6 10*3/uL Normal 1.8-7.0 [facility] Comment on above: Performed By: #### L IPD2, BMP3, MG3 #### [facility] [address] [place] [address] Basophils/100 WBC (Bld) 2.4 % High 0.0-2.0 [facility] Comment on above: Performed By: #### L IPD2, BMP3, MG3 #### [facility] [address] [place] [address] Eosinophils (Bld) [#/Vol] 0.3 10*3/uL Normal 0.0-0.5 [facility] Comment on above: Performed By: #### L IPD2, BMP3, MG3 #### [facility] [email or web address] [facility] [address] [place] [address] Eosinophils/100 WBC (Bld) 4.9 % Normal 1.0-6.0 [facility] Comment on above: Performed By: #### L IPD2, BMP3, MG3 #### [facility] [address] [place] [address] Erythrocyte distribution width (RBC) [Ratio] 33.5 % High 11.5-14.5 [facility] Comment on above: Performed By: #### L IPD2, BMP3, MG3 #### [facility] [email or web address] [facility] [address] [place] [address] Granulocytes/100 WBC (Bld) 67.9 % Normal 40.0-80.0 [facility] Comment on above: Performed By: #### L IPD2, BMP3, MG3 #### [facility] [email or web address] [facility] [address] [place] [address] Hematocrit (Bld) [Volume fraction] 35.0 % Low 40.0-52.0 [facility] Comment on above: Performed By: #### L IPD2, BMP3, MG3 #### [facility] [address] [place] [address] Hemoglobin (Bld) [Mass/Vol] 11.1 g/dL Low 13.0-18.0 [facility] Comment on above: Performed By: #### L IPD2, BMP3, MG3 #### [facility] [address] [place] [address] Lymphocytes (Bld) [#/Vol] 1.0 10*3/uL Normal 1.0-4.3 [facility] Comment on above: Performed By: #### L IPD2, BMP3, MG3 #### [facility] [address] [place] [address] Lymphocytes/100 WBC (Bld) 18.0 % Low 20.0-40.0 [facility] Comment on above: Performed By: #### L IPD2, BMP3, MG3 #### [facility] [address] [place] [address] MCH (RBC) [Entitic mass] 26.7 pg Normal 26.0-34.0 [facility] Comment on above: Performed By: #### L IPD2, BMP3, MG3 #### [facility] [address] [place] [address] MCHC 31.7 % Low 32.0-36.0 [facility] Comment on above: Performed By: #### L IPD2, BMP3, MG3 #### [facility] [address] [place] [address] MCV (RBC) [Entitic vol] 84.2 fL Normal 80.0-98.0 [facility] Comment on above: Performed By: #### L IPD2, BMP3, MG3 #### [facility] [address] [place] [address] Monocytes (Bld) [#/Vol] 0.4 10*3/uL Normal 0.0-0.8 [facility] Comment on above: Performed By: #### L IPD2, BMP3, MG3 #### [facility] [address] [place] [address] Monocytes/100 WBC (Bld) 6.8 % Normal 2.0-10.0 [facility] Comment on above: Performed By: #### L IPD2, BMP3, MG3 #### [facility] [address] [place] [address] Platelet mean volume (Bld) [Entitic vol] 8.9 fL Normal 7.4-10.4 [facility] Comment on above: Performed By: #### L IPD2, BMP3, MG3 #### [facility] [address] [place] [address] Platelets (Bld) [#/Vol] 223 10*3/uL Normal 140-440 [facility] Comment on above: Performed By: #### L IPD2, BMP3, MG3 #### [facility] [address] [place] [address] RBC (Bld) [#/Vol] 4.16 10*6/uL Low 4.40-5.90 [facility] Comment on above: Performed By: #### L IPD2, BMP3, MG3 #### [facility] [address] [place] [address] WBC (Bld) [#/Vol] 5.3 10*3/uL Normal 3.6-10.7 [facility] Comment on above: Performed By: #### L IPD2, BMP3, MG3 #### [facility] [address] [place] [address] Magnesiumon 09-25-2020 Magnesium [Mass/Vol] 1.7 mg/dL Normal 1.6-2.3 [facility] Comment on above: Performed By: #### L IPD2, BMP3, MG3 #### [facility] [address] [place] [address] Magnesium [Mass/Vol] 1.7 mg/dL 1.6 - 2 .3 mg/dL [facility] Work Phone: Metabolic Panelon 09-25-2020 Sodium [Moles/Vol] Slight [facility] Work Phone: Sodium [Moles/Vol] Moderate [facility] Work Phone: Otheron 09-25-2020 Test Performed by [facility], [address] [place], [place] [address] [facility] Work Phone: RBC MORPHOLOGYon 09-25-2020 Anisocytosis Ql (Bld) Marked [facility] Work Phone: RBC morphology finding Nom (Bld) ABNORMAL [facility] Work Phone: Test Performed by [facility], [address] [place], [place] [address] [facility] Work Phone: RBC Morphologyon 09-25-2020 Anisocytosis Ql (Bld) Marked Normal [facility] Comment on above: Performed By: #### L IPD2, BMP3, MG3 #### [email or web address] [facility] [address] [place] [address] Elliptocytes Slight Normal [facility] Comment on above: Performed By: #### L IPD2, BMP3, MG3 #### [email or web address] [facility] [address] [place] [address] Hypochromia Moderate Normal [facility] Comment on above: Performed By: #### L IPD2, BMP3, MG3 #### [email or web address] [facility] [address] [place] [address] Microcytosis Slight Normal [facility] Comment on above: Performed By: #### L IPD2, BMP3, MG3 #### [email or web address] [facility] [address] [place] [address] Ovalocytes Slight Normal [facility] Comment on above: Performed By: #### L IPD2, BMP3, MG3 #### [email or web address] [facility] [address] [place] [address] Poikilocytosis Moderate Normal [facility] [place] [facility] Comment on above: Performed By: #### L IPD2, BMP3, MG3 #### [email or web address] [facility] [address] [place] [address] Polychromasia Slight Normal [facility] Comment on above: Performed By: #### L IPD2, BMP3, MG3 #### [facility] [address] [place] [address] RBC morphology finding Nom (Bld) ABNORMAL Normal [facility] Comment on above: Performed By: #### L IPD2, BMP3, MG3 #### [facility] [address] [place] [address] Target Cells Slight Normal [facility] Comment on above: Performed By: #### L IPD2, BMP3, MG3 #### [facility] [address] [place] [address] Tear Drop Forms Slight Normal [facility] Comment on above: Performed By: #### L IPD2, BMP3, MG3 #### [facility] [address] [place] [address] Basic Metabolic Panelon 03-0 -2020 Anion gap [Moles/Vol] 8 mmol/L Normal 3-13 [facility] Comment on above: Performed By: #### B GLU #### [facility] [address] [place] [address] Calcium [Mass/Vol] 8.9 mg/dL Normal 8.4-10.4 [facility] Comment on above: Performed By: #### B GLU #### [facility] [address] [place] [address] CO2 [Moles/Vol] 34 mmol/L High 22-30 [facility] Comment on above: Performed By: #### B GLU #### [facility] [address] [place] [address] Glucose [Mass/Vol] 111 mg/dL High 70-100 [facility] Comment on above: Performed By: #### B GLU #### [facility] [address] [place] [address] Urea nitrogen [Mass/Vol] 42 mg/dL High 7-20 [facility] Comment on above: Performed By: #### B GLU #### [facility] [address] [place] [address] Creatinine [Mass/Vol] 2.23 mg/dL High 0.52-1.25 [facility] Comment on above: Performed By: #### B GLU #### [facility] [address] [place] [address] GFR/1.73 sq M.predicted among blacks MDRD (S/P/Bld) [Vol rate/Area] 30.8 mL/min/{1.73_m2} Abnormal >60 [facility] Comment on above: Performed By: #### B GLU #### [facility] [address] [place] [address] GFR/1.73 sq M.predicted among non-blacks MDRD (S/P/Bld) [Vol rate/Area] 26.6 mL/min/{1.73_m2} Abnormal >60 [facility] Comment on above: Result Comment: KDIG [...] secretion. Performed By: #### B GLU #### [facility] [address] [place] [address] Chloride [Moles/Vol] 94 mmol/L Low 98-107 [facility] Comment on above: Performed By: #### B GLU #### [facility] [address] [place] [address] Potassium [Moles/Vol] 3.2 mmol/L Low 3.5-5.1 [facility] Comment on above: Performed By: #### B GLU #### [facility] [address] [place] [address] Sodium [Moles/Vol] 136 mmol/L Normal 135-145 [facility] Comment on above: Performed By: #### B GLU #### [facility] [address] [place] [address] Anion gap [Moles/Vol] 8 mmol/L 3 - [...] mg/dL [facility] Work Phone: EGFR IF NonAfrican [place] 26.6 mL/min Abnormal >60 [facility] Work Phone: [...] 3.2 mmol/L Low 3.5 - 5.1 mmol/L [employer] Work Phone: Sodium [Moles/Vol] 136 mmol/L 135 - 145 mmol/L [employer] Work Phone: Urea nitrogen [Mass/Vol] 42 mg/dL High 7 - 20 mg/d L [employer] Work Phone: Brain Natriuretic Peptideon 09-24-2020 Interpretation and review of laboratory results Abnormal [employer] Work Phone: Natriuretic peptide B (Bld) [Mass/Vol] [address] pg/mL High 0 - 450 pg/mL [employer] Work Phone: Test Performed by [facility], [address] [place] [address] [employer] Work Phone: CBC Auto Differentialon 03-0 Absolute Baso # 0.2 10*3/uL 0.0 - 0.2 10*3/uL [employer] Work Phone: Absolute Neut # 3.9 10*3/uL 1.8 - 7.0 10*3/uL [employer] Work Phone: Basophils/100 WBC (Bld) 3.1 % High 0.0 - 2.0 % [employer] Work Phone: Eosinophils (Bld) [#/Vol] 0.3 10*3/uL 0.0 - 0.5 10*3/uL [employer] Work Phone: Eosinophils/100 WBC (Bld) 4.9 % 1.0 - 6.0 % [employer] Work Phone: Erythrocyte distribution width (RBC) [Ratio] 33.7 % High 11.5 - 14.5 % [employer] Work Phone: Granulocytes/100 WBC (Bld) 68.1 % 40.0 - 80.0 % [employer] Work Phone: Hematocrit (Bld) [Volume fraction] 32.6 % Low 40.0 - 52.0 % [employer] Work Phone: Hemoglobin (Bld) [Mass/Vol] 10.3 g/dL Low 13.0 - 18.0 g/dL [employer] Work Phone: Interpretation and review of laboratory results Abnormal [employer] Work Phone: Lymphocytes (Bld) [#/Vol] 1.0 10*3/uL 1.0 - 4.3 10*3/uL [employer] Work Phone: Lymphocytes/100 WBC (Bld) 17.7 % Low 20.0 - 40.0 % [employer] Work Phone: MCH (RBC) [Entitic mass] 26.4 pg 26. 0 - 34.0 pg [employer] Work Phone: MCHC (RBC) [Mass/Vol] 31.7 % Low 32.0 - 36.0 % [employer] Work Phone: MCV (RBC) [Entitic vol] 83.4 fL 80.0 - 98.0 fL [employer] Work Phone: Monocytes (Bld) [#/Vol] 0.4 10*3/uL 0.0 - 0.8 10*3/uL [employer] Work Phone: Monocytes/100 WBC (Bld) 6.2 % 2.0 - 10.0 % [employer] Work Phone: Platelet mean volume (Bld) [Entitic vol] 9.0 fL 7.4 - 10.4 fL [employer] Work Phone: Platelets (Bld) [#/Vol] 230 10*3/uL 140 - 440 10*3/uL [employer] Work Phone: RBC (Bld) [#/Vol] 3.91 10*6/uL Low 4.40 - 5.9 0 10*6/uL [employer] Work Phone: WBC (Bld) [#/Vol] 5.7 10*3/uL 3.6 - 10.7 10*3/uL [employer] Work Phone: Test Performed by [facility], [address] [place] [address] [facility] Work Phone: Hemogram w/ Autodiffon 09-24 Abs Baso Cnt 0.2 10*3/uL Normal 0.0-0.2 [facility] Comment on above: Performed By: #### B GLU #### [facility] [address] [place] [address] Abs Neutrophile Cnt 3.9 10*3/uL Normal 1.8-7.0 [facility] Comment on above: Performed By: #### B GLU #### [facility] [address] [place] [address] Basophils/100 WBC (Bld) 3.1 % High 0.0-2.0 [facility] Comment on above: Performed By: #### B GLU #### [facility] [address] [place] [address] Eosinophils (Bld) [#/Vol] 0.3 10*3/uL Normal 0.0-0.5 [facility] Comment on above: Performed By: #### B GLU #### [facility] [address] [place] [address] Eosinophils/100 WBC (Bld) 4.9 % Normal 1.0-6.0 [facility] Comment on above: Performed By: #### B GLU #### [facility] [address] [place] [address] Erythrocyte distribution width (RBC) [Ratio] 33.7 % High 11.5-14.5 [facility] Comment on above: Performed By: #### B GLU #### [facility] [address] [place] [address] Granulocytes/100 WBC (Bld) 68.1 % Normal 40.0-80.0 [facility] Comment on above: Performed By: #### B GLU #### [facility] [address] [place] [address] Hematocrit (Bld) [Volume fraction] 32.6 % Low 40.0-52.0 [facility] Comment on above: Performed By: #### B GLU #### [facility] [address] [place] [address] Hemoglobin (Bld) [Mass/Vol] 10.3 g/dL Low 13.0-18.0 [facility] Comment on above: Performed By: #### B GLU #### [facility] [address] [place] [address] Lymphocytes (Bld) [#/Vol] 1.0 10*3/uL Normal 1.0-4.3 [facility] Comment on above: Performed By: #### B GLU #### [facility] [address] [place] [address] Lymphocytes/100 WBC (Bld) 17.7 % Low 20.0-40.0 [facility] Comment on above: Performed By: #### B GLU #### [facility] [address] [place] [address] MCH (RBC) [Entitic mass] 26.4 pg Normal 26.0-34.0 [facility] Comment on above: Performed By: #### B GLU #### [facility] [address] [place] [address] MCHC 31.7 % Low 32.0-36.0 [facility] Comment on above: Performed By: #### B GLU #### [facility] [address] [place] [address] MCV (RBC) [Entitic vol] 83.4 fL Normal 80.0-98.0 [facility] Comment on above: Performed By: #### B GLU #### [facility] [address] [place] [address] Monocytes (Bld) [#/Vol] 0.4 10*3/uL Normal 0.0-0.8 [facility] Comment on above: Performed By: #### B GLU #### [facility] [address] [place] [address] Monocytes/100 WBC (Bld) 6.2 % Normal 2.0-10.0 [facility] Comment on above: Performed By: #### B GLU #### [facility] [address] [place] [address] Platelet mean volume (Bld) [Entitic vol] 9.0 fL Normal 7.4-10.4 [facility] Comment on above: Performed By: #### B GLU #### [facility] [address] [place] [address] Platelets (Bld) [#/Vol] 230 10*3/uL Normal 140-440 [facility] Comment on above: Performed By: #### B GLU #### [facility] [address] [place] [address] RBC (Bld) [#/Vol] 3.91 10*6/uL Low 4.40-5.90 [facility] Comment on above: Performed By: #### B GLU #### [facility] [address] [place] [address] WBC (Bld) [#/Vol] 5.7 10*3/uL Normal 3.6-10.7 [facility] Comment on above: Performed By: #### B GLU #### [facility] [address] [place] [address] Magnesiumon 09-24-2020 Magnesium [Mass/Vol] 1.8 mg/dL Normal 1.6-2.3 [facility] Comment on above: Performed By: #### B GLU #### [facility] [address] [place] [address] Magnesium [Mass/Vol] 1.8 mg/dL 1.6 - 2 .3 mg/dL [facility] Work Phone: Metabolic Panelon 09-24-2020 Sodium [Moles/Vol] Slight [facility] Work Phone: NT pro BNPon 09-24-2020 Natriuretic peptide B (Bld) [Mass/Vol] 21994 pg/mL High 0-450 [facility] Comment on above: Performed By: #### B GLU #### [facility] [address] [place] [address] Otheron 09-24-2020 Test Performed by [facility], [address] [place] [address] [facility] Work Phone: RBC MORPHOLOGYon 09-24-2020 Anisocytosis Ql (Bld) Slight [facility] Work Phone: RBC morphology finding Nom (Bld) ABNORMAL [facility] Work Phone: Sodium [Moles/Vol] Moderate [facility] Work Phone: Test Performed by [facility] [email or web address] [facility], [address] [place] [address] [facility] Work Phone: RBC Morphologyon 09-24-2020 Acanthocytes Slight Normal [facility] Comment on above: Performed By: #### B GLU #### [facility] [address] [place] [address] Anisocytosis Ql (Bld) Slight Normal [facility] Comment on above: Performed By: #### B GLU #### [facility] [address] [place] [address] Elliptocytes Slight Normal [facility] Comment on above: Performed By: #### B GLU #### [facility] [address] [place] [address] Hypochromia Moderate Normal [facility] Comment on above: Performed By: #### B GLU #### [facility] [address] [place] [address] Macrocytosis Slight Normal [facility] Comment on above: Performed By: #### B GLU #### [facility] [address] [place] [address] Poikilocytosis Slight Normal [facility] [place] [facility] Comment on above: Performed By: #### B GLU #### [facility] [address] [place] [address] Polychromasia Slight Normal [facility] Comment on above: Performed By: #### B GLU #### [facility] [address] [place] [address] RBC morphology finding Nom (Bld) ABNORMAL Normal [facility] Comment on above: Performed By: #### B GLU #### [facility] [address] [place] [address] Basic Metabolic Panelon Anion gap [Moles/Vol] 10 mmol/L Normal 3-13 [facility] Comment on above: Performed By: #### L IPD2, BMP3, MG3 #### [facility] [address] [place] [address] Calcium [Mass/Vol] 9.0 mg/dL Normal 8.4-10.4 [facility] Comment on above: Performed By: #### L IPD2, BMP3, MG3 #### [facility] [address] [place] [address] CO2 [Moles/Vol] 30 mmol/L Normal 22-30 [facility] Comment on above: Performed By: #### L IPD2, BMP3, MG3 #### [facility] [address] [place] [address] Glucose [Mass/Vol] 110 mg/dL High 70-100 [facility] Comment on above: Performed By: #### L IPD2, BMP3, MG3 #### [facility] [address] [place] [address] Urea nitrogen [Mass/Vol] 42 mg/dL High 7-20 [facility] Comment on above: Performed By: #### L IPD2, BMP3, MG3 #### [facility] [address] [place] [address] Creatinine [Mass/Vol] 2.38 mg/dL High 0.52-1.25 [facility] Comment on above: Performed By: #### L IPD2, BMP3, MG3 #### [facility] [address] [place] [address] GFR/1.73 sq M.predicted among blacks MDRD (S/P/Bld) [Vol rate/Area] 28.5 mL/min/{1.73_m2} Abnormal >60 [facility] Comment on above: Performed By: #### L IPD2, BMP3, MG3 #### [facility] [address] [place] [address] GFR/1.73 sq M.predicted among non-blacks MDRD (S/P/Bld) [Vol rate/Area] 24.6 mL/min/{1.73_m2} Abnormal >60 [facility] Comment on above: Result Comment: KDIG [...] By: #### L IPD2, BMP3, MG3 #### [facility] [address] [place] [address] Potassium [Moles/Vol] 3.5 mmol/L Normal 3.5-5.1 [facility] Comment on above: Result Comment: Slig htly hemolysed, interpret with caution. Performed By: #### L IPD2, BMP3, MG3 #### [facility] [address] [place] [address] Sodium [Moles/Vol] 137 mmol/L Normal 135-145 [facility] Comment on above: Performed By: #### L IPD2, BMP3, MG3 #### [facility] [address] [place] [address] Chloride [Moles/Vol] 97 mmol/L Low 98-107 [facility] Comment on above: Performed By: #### L IPD2, BMP3, MG3 #### [facility] [address] [place] [address] Anion gap [Moles/Vol] 10 mmol/L 3 - 13 mmol/L [facility] Work Phone: Calcium [Mass/Vol] 9.0 mg/dL 8.4 - 10. 4 mg/dL [employer] Work Phone: Chloride [Moles/Vol] 97 mmol/L Low 98 - 10 7 mmol/L [facility] Work Phone: CO2 [Moles/Vol] 30 mmol/L 22 - 30 mmol/L [facility] Work Phone: Creatinine [Mass/Vol] 2.38 mg/dL High 0.52 - 1.25 mg/dL [employer] Work Phone: EGFR IF NonAfrican [place] 24.6 mL/min Abnormal >60 [employer] Work Phone: Comment on above: KDIGO guidelines [...] 110 mg/dL High 70 - 100 mg/dL [employer] Work Phone: Interpretation and review of laboratory results Abnormal [employer] Work Phone: Potassium [Moles/Vol] 3.5 mmol/L 3.5 - 5.1 mmol/L [employer] Work Phone: Comment on above: Slightly hemolysed, interpret with caution. Sodium [Moles/Vol] 137 mmol/L 135 - 145 mmol/L [employer] Work Phone: Urea nitrogen [Mass/Vol] 42 mg/dL High 7 - 20 mg/d L [employer] Work Phone: CBC Auto Differentialon 03-0 Absolute Baso # 0.2 10*3/uL 0.0 - 0.2 10*3/uL [employer] Work Phone: Absolute Neut # 4.0 10*3/uL 1.8 - 7.0 10*3/uL [facility] Work Phone: Basophils/100 WBC (Bld) 2.6 % High 0.0 - 2.0 % [employer] Work Phone: Eosinophils (Bld) [#/Vol] 0.2 10*3/uL 0.0 - 0.5 10*3/uL [facility] Work Phone: Eosinophils/100 WBC (Bld) 3.5 % 1.0 - 6.0 % [employer] Work Phone: Erythrocyte distribution width (RBC) [Ratio] 33.2 % High 11.5 - 14.5 % [employer] Work Phone: Granulocytes/100 WBC (Bld) 67.9 % 40.0 - 80.0 % [employer] Work Phone: Hematocrit (Bld) [Volume fraction] 34.2 % Low 40.0 - 52.0 % [employer] Work Phone: Hemoglobin (Bld) [Mass/Vol] 11.0 g/dL Low 13.0 - 18.0 g/dL [employer] Work Phone: Interpretation and review of laboratory results Abnormal [employer] Work Phone: Lymphocytes (Bld) [#/Vol] 1.2 10*3/uL 1.0 - 4.3 10*3/uL [facility] Work Phone: Lymphocytes/100 WBC (Bld) 19.7 % Low 20.0 - 40.0 % [employer] Work Phone: MCH (RBC) [Entitic mass] 26.6 pg 26. 0 - 34.0 pg [facility] Work Phone: MCHC (RBC) [Mass/Vol] 32.1 % 32.0 - 36.0 % [employer] Work Phone: MCV (RBC) [Entitic vol] 82.6 fL 80.0 - 98.0 fL [facility] Work Phone: Monocytes (Bld) [#/Vol] 0.4 10*3/uL 0.0 - 0.8 10*3/uL [employer] Work Phone: Monocytes/100 WBC (Bld) 6.3 % 2.0 - 10.0 % [employer] Work Phone: Platelet mean volume (Bld) [Entitic vol] 8.5 fL 7.4 - 10.4 fL [employer] Work Phone: Platelets (Bld) [#/Vol] 245 10*3/uL 140 - 440 10*3/uL [employer] Work Phone: Comment on above: Clumped Platelets Revised: Comment was added, verified by TNM at 05:20 on 09/23/20 RBC (Bld) [#/Vol] 4.14 10*6/uL Low 4.40 - 5.9 0 10*6/uL [employer] Work Phone: WBC (Bld) [#/Vol] 5.9 10*3/uL 3.6 - 10.7 10*3/uL [employer] Work Phone: Test Performed by [facility], [address] [place], [place] [address] [employer] Work Phone: Hemogram w/ [employer]od[employer] 09-23 Platelets (Bld) [#/Vol] 245 10*3/uL Normal 140-440 [facility] Comment on above: Result Comment: Clum ped Platelets Revised: Comment was added, verified by TNM at 05:20 on 09/23/20 Performed By: #### B NP3, TROPN, BMP3, HEMDF #### [facility] [address] [place] [address] Abs Baso Cnt 0.2 10*3/uL Normal 0.0-0.2 [facility] Comment on above: Performed By: #### B NP3, TROPN, BMP3, HEMDF #### [facility] [address] [place] [address] Abs Neutrophile Cnt 4.0 10*3/uL Normal 1.8-7.0 [facility] Comment on above: Performed By: #### B NP3, TROPN, BMP3, HEMDF #### [facility] [address] [place] [address] Basophils/100 WBC (Bld) 2.6 % High 0.0-2.0 [facility] Comment on above: Performed By: #### B NP3, TROPN, BMP3, HEMDF #### [facility] [address] [place] [address] Eosinophils (Bld) [#/Vol] 0.2 10*3/uL Normal 0.0-0.5 [facility] Comment on above: Performed By: #### B NP3, TROPN, BMP3, HEMDF #### [facility] [address] [place] [address] Eosinophils/100 WBC (Bld) 3.5 % Normal 1.0-6.0 [facility] Comment on above: Performed By: #### B NP3, TROPN, BMP3, HEMDF #### [facility] [address] [place] [address] Erythrocyte distribution width (RBC) [Ratio] 33.2 % High 11.5-14.5 [facility] Comment on above: Performed By: #### B NP3, TROPN, BMP3, HEMDF #### [facility] [address] [place] [address] Granulocytes/100 WBC (Bld) 67.9 % Normal 40.0-80.0 [facility] Comment on above: Performed By: #### B NP3, TROPN, BMP3, HEMDF #### [facility] [address] [place] [address] Hematocrit (Bld) [Volume fraction] 34.2 % Low 40.0-52.0 [facility] Comment on above: Performed By: #### B NP3, TROPN, BMP3, HEMDF #### [facility] [address] [place] [address] Hemoglobin (Bld) [Mass/Vol] 11.0 g/dL Low 13.0-18.0 [facility] Comment on above: Performed By: #### B NP3, TROPN, BMP3, HEMDF #### [facility] [address] [place] [address] Lymphocytes (Bld) [#/Vol] 1.2 10*3/uL Normal 1.0-4.3 [facility] Comment on above: Performed By: #### B NP3, TROPN, BMP3, HEMDF #### [facility] [address] [place] [address] Lymphocytes/100 WBC (Bld) 19.7 % Low 20.0-40.0 [facility] Comment on above: Performed By: #### B NP3, TROPN, BMP3, HEMDF #### [facility] [address] [place] [address] MCH (RBC) [Entitic mass] 26.6 pg Normal 26.0-34.0 [facility] Comment on above: Performed By: #### B NP3, TROPN, BMP3, HEMDF #### [facility] [address] [place] [address] MCHC 32.1 % Normal 32.0-36.0 [facility] Comment on above: Performed By: #### B NP3, TROPN, BMP3, HEMDF #### [facility] [address] [place] [address] MCV (RBC) [Entitic vol] 82.6 fL Normal 80.0-98.0 [facility] Comment on above: Performed By: #### B NP3, TROPN, BMP3, HEMDF #### [facility] [address] [place] [address] Monocytes (Bld) [#/Vol] 0.4 10*3/uL Normal 0.0-0.8 [facility] Comment on above: Performed By: #### B NP3, TROPN, BMP3, HEMDF #### [facility] [address] [place] [address] Monocytes/100 WBC (Bld) 6.3 % Normal 2.0-10.0 [facility] Comment on above: Performed By: #### B NP3, TROPN, BMP3, HEMDF #### [facility] [address] [place] [address] Platelet mean volume (Bld) [Entitic vol] 8.5 fL Normal 7.4-10.4 [facility] Comment on above: Performed By: #### B NP3, TROPN, BMP3, HEMDF #### [facility] [address] [place] [address] RBC (Bld) [#/Vol] 4.14 10*6/uL Low 4.40-5.90 [facility] Comment on above: Performed By: #### B NP3, TROPN, BMP3, HEMDF #### [facility] [address] [place] [address] WBC (Bld) [#/Vol] 5.9 10*3/uL Normal 3.6-10.7 [facility] Comment on above: Performed By: #### B NP3, TROPN, BMP3, HEMDF #### [facility] [address] [place] [address] Hepatic Functionon 1 ALP [Catalytic activity/Vol] 104 U/L Normal 38-126 [facility] Comment on above: Result Comment: Slig htly hemolysed, interpret with caution. Performed By: #### B NP3, TROPN, BMP3, HEMDF #### [facility] [address] [place] [address] ALT [Catalytic activity/Vol] 27 U/L Normal 0-49 [facility] Comment on above: Result Comment: The ALT test is performed by an updated assay method. Please note that the reference intervals have been changed and are now sex specific. Performed By: #### B NP3, TROPN, BMP3, HEMDF #### [facility] [address] [place] [address] AST [Catalytic activity/Vol] 56 U/L High 15-46 [facility] Comment on above: Performed By: #### B NP3, TROPN, BMP3, HEMDF #### [facility] [address] [place] [address] Bilirubin [Mass/Vol] 1.9 mg/dL High 0.2-1.3 [facility] Comment on above: Performed By: #### B NP3, TROPN, BMP3, HEMDF #### [facility] [address] [place] [address] Bilirubin.indirect [Mass/Vol] 0.0 mg/dL Normal 0.0-0.3 [facility] Comment on above: Performed By: #### B NP3, TROPN, BMP3, HEMDF #### [facility] [address] [place] [address] Protein [Mass/Vol] 6.6 g/dL Normal 6.3-8.2 [facility] Comment on above: Performed By: #### B NP3, TROPN, BMP3, HEMDF #### [facility] [address] [place] [address] Albumin [Mass/Vol] 3.6 g/dL Normal 3.5-5.0 [facility] Comment on above: Performed By: #### B NP3, TROPN, BMP3, HEMDF #### [facility] [address] [place] [address] Hepatic Function Panelon Albumin [Mass/Vol] 3.6 g/dL 3.5 - 5.0 g/dL [facility] Work Phone: ALP [Catalytic activity/Vol] 104 U/L 38 - 126 U/L [facility] Work Phone: Comment on above: Slightly hemolysed, interpret with caution. ALT [Catalytic activity/Vol] 27 U/L 0 - 49 U/L [facility] Work Phone: Comment on above: The ALT test is perf ormed by an updated assay method. Please note that the reference intervals have been changed and are now sex specific. AST [Catalytic activity/Vol] 56 U/L High 15 - 46 U/L [facility] Work Phone: Bilirubin Ql (U) 1.9 mg/dL High 0.2 - 1.3 mg/dL [facility] Work Phone: Bilirubin.direct [Mass/Vol] 0.0 mg/dL 0.0 - 0.3 mg/dL [facility] Work Phone: Interpretation and review of laboratory results Abnormal [facility] Work Phone: [phone] Protein [Mass/Vol] 6.6 g/dL 6.3 - 8.2 g/dL [facility] Work Phone: [phone] Test Performed by [facility], [address] [place], [place] [address] [facility] Work Phone: [phone] Magnesiumon 09-23-2020 Magnesium [Mass/Vol] 2.0 mg/dL Normal 1.6-2.3 [facility] [employer] Comment on above: Performed By: #### L IPD2, BMP3, MG3 #### [facility] [address] [place] [address] Magnesium [Mass/Vol] 2.0 mg/dL 1.6 - 2 .3 mg/dL [facility] Work Phone: [phone] Metabolic Panelon 09-23-2020 Sodium [Moles/Vol] Slight [facility] Work Phone: [phone] Sodium [Moles/Vol] Moderate [facility] Work Phone: [phone] Otheron 09-23-2020 Test Performed by [facility], [address] [place], [place] [address] [facility] Work Phone: [phone] RBC MORPHOLOGYon 09-23-2020 Anisocytosis Ql (Bld) Marked [facility] Work Phone: [phone] RBC morphology finding Nom (Bld) ABNORMAL [facility] Work Phone: [phone] Sodium [Moles/Vol] Present [facility] Work Phone: [phone] Test Performed by [facility], [address] [place], [place] [address] [facility] Work Phone: [phone] RBC Morphologyon 09-23-2020 Acanthocytes Slight Normal [facility] [employer] Comment on above: Performed By: #### B NP3, TROPN, BMP3, HEMDF #### [facility] [address] [place] [address] Anisocytosis Ql (Bld) Marked Normal [facility] Comment on above: Performed By: #### B NP3, TROPN, BMP3, HEMDF #### [facility] [address] [place] [address] Canute Cells Slight Normal [facility] Comment on above: Performed By: #### B NP3, TROPN, BMP3, HEMDF #### [facility] [address] [place] [address] Dimorphic RBCs Present Normal [facility] Comment on above: Performed By: #### B NP3, TROPN, BMP3, HEMDF #### [facility] [address] [place] [address] Elliptocytes Slight Normal [facility] Comment on above: Performed By: #### B NP3, TROPN, BMP3, HEMDF #### [facility] [address] [place] [address] Hypochromia Moderate Normal [facility] Comment on above: Performed By: #### B NP3, TROPN, BMP3, HEMDF #### [facility] [address] [place] [address] Ovalocytes Slight Normal [facility] Comment on above: Performed By: #### B NP3, TROPN, BMP3, HEMDF #### [facility] [address] [place] [address] Poikilocytosis Moderate Normal [facility] Comment on above: Performed By: #### B NP3, TROPN, BMP3, HEMDF #### [facility] [address] [place] [address] Polychromasia Slight Normal [facility] Comment on above: Performed By: #### B NP3, TROPN, BMP3, HEMDF #### [facility] [address] [place] [address] RBC morphology finding Nom (Bld) ABNORMAL Normal [facility] Comment on above: Performed By: #### B NP3, TROPN, BMP3, HEMDF #### [facility] [address] [place] [address] Schistocytes Slight Normal [facility] Comment on above: Performed By: #### B NP3, TROPN, BMP3, HEMDF #### [facility] [address] [place] [address] Target Cells Slight Normal [facility] Comment on above: Performed By: #### B NP3, TROPN, BMP3, HEMDF #### [facility] [address] [place] [address] Add On Lab Teston 09-22-2020 Sodium [Moles/Vol] Accepted [facility] Work Phone: Comment on above: Specimen available & acceptable for analysis. Test Performed by [facility], [address] [place] [address] [facility] Work Phone: Add on test from HISon 09-22 Add on test from HIS Accepted Normal [facility] Comment on above: Result Comment: Spec imen available & acceptable for analysis. Performed By: #### B NP3, TROPN, BMP3, HEMDF #### [facility] [address] [place] [address] Basic Metabolic Panelon Anion gap [Moles/Vol] 10 mmol/L Normal 3-13 [facility] Comment on above: Order Comment: SLIGH T HEMOLYSIS Performed By: #### B GLU #### [facility] [address] [place] [address] Calcium [Mass/Vol] 8.1 mg/dL Low 8.4-10.4 [facility] Comment on above: Order Comment: SLIGH T HEMOLYSIS Performed By: #### B GLU #### [facility] [address] [place] [address] CO2 [Moles/Vol] 26 mmol/L Normal 22-30 [facility] Comment on above: Order Comment: SLIGH T HEMOLYSIS Performed By: #### B GLU #### [facility] [address] [place] [address] Glucose [Mass/Vol] 99 mg/dL Normal 70-100 [facility] Comment on above: Order Comment: SLIGH T HEMOLYSIS Performed By: #### B GLU #### [facility] [address] [place] [address] Urea nitrogen [Mass/Vol] 38 mg/dL High 7-20 [facility] Comment on above: Order Comment: SLIGH T HEMOLYSIS Performed By: #### B GLU #### [facility] [email or web address] [facility] [address] [place] [address] Creatinine [Mass/Vol] 2.24 mg/dL High 0.52-1.25 [facility] Comment on above: Order Comment: SLIGH T HEMOLYSIS Performed By: #### B GLU #### [facility] [address] [place] [address] GFR/1.73 sq M.predicted among blacks MDRD (S/P/Bld) [Vol rate/Area] 30.7 mL/min/{1.73_m2} Abnormal >60 [facility] Comment on above: Order Comment: SLIGH T HEMOLYSIS Performed By: #### B GLU #### [facility] [address] [place] [address] GFR/1.73 sq M.predicted among non-blacks MDRD (S/P/Bld) [Vol rate/Area] 26.4 mL/min/{1.73_m2} Abnormal >60 [facility] Comment on above: Order Comment: SLIGH [...] secretion. Performed By: #### B GLU #### [facility] [email or web address] [facility] [address] [place] [address] Potassium [Moles/Vol] 3.8 mmol/L Normal 3.5-5.1 [facility] Comment on above: Order Comment: SLIGH T HEMOLYSIS Performed By: #### B GLU #### [facility] [address] [place] [address] Chloride [Moles/Vol] 102 mmol/L Normal 98-107 [facility] Comment on above: Order Comment: SLIGH T HEMOLYSIS Performed By: #### B GLU #### [facility] [address] [place] [address] Sodium [Moles/Vol] 139 mmol/L Normal 135-145 [facility] Comment on above: Order Comment: SLIGH T HEMOLYSIS Performed By: #### B GLU #### [facility] [address] [place] [address] Anion gap [Moles/Vol] 10 mmol/L 3 - 13 mmol/L [facility] Work Phone: Calcium [Mass/Vol] 8.1 mg/dL Low 8.4 - 10. 4 mg/dL [facility] Work Phone: Chloride [Moles/Vol] 102 mmol/L 98 - 10 7 mmol/L [facility] Work Phone: CO2 [Moles/Vol] 26 mmol/L 22 - 30 mmol/L [facility] Work Phone: Creatinine [Mass/Vol] 2.24 mg/dL High 0.52 - 1.25 mg/dL [facility] Work Phone: EGFR IF NonAfrican [place] 26.4 mL/min Abnormal >60 [facility] Work Phone: Comment on above: KDIGO [...] (S/P/Bld) [Vol rate/Area] 30.7 mL/min/{1.73_m2} Abnormal >60 [employer] Work Phone: Glucose [Mass/Vol] 99 mg/dL 70 - 100 mg/dL [employer] Work Phone: Potassium [Moles/Vol] 3.8 mmol/L 3.5 - 5.1 mmol/L [employer] Work Phone: Sodium [Moles/Vol] 139 mmol/L 135 - 145 mmol/L [employer] Work Phone: Urea nitrogen [Mass/Vol] 38 mg/dL High 7 - 20 mg/d L [employer] Work Phone: CBCon 09-22-2020 Erythrocyte distribution width (RBC) [Ratio] 34.1 % High 11.5 - 14.5 % [employer] Work Phone: Hematocrit (Bld) [Volume fraction] 33.6 % Low 40.0 - 52.0 % [employer] Work Phone: Hemoglobin (Bld) [Mass/Vol] 10.6 g/dL Low 13.0 - 18.0 g/dL [employer] Work Phone: Interpretation and review of laboratory results Abnormal [employer] Work Phone: MCH (RBC) [Entitic mass] 26.2 pg 26. 0 - 34.0 pg [employer] Work Phone: MCHC (RBC) [Mass/Vol] 31.6 % Low 32.0 - 36.0 % [employer] Work Phone: MCV (RBC) [Entitic vol] 82.9 fL 80.0 - 98.0 fL [employer] Work Phone: Platelet mean volume (Bld) [Entitic vol] 8.5 fL 7.4 - 10.4 fL [employer] Work Phone: Platelets (Bld) [#/Vol] 207 10*3/uL 140 - 440 10*3/uL [employer] Work Phone: RBC (Bld) [#/Vol] 4.05 10*6/uL Low 4.40 - 5.9 0 10*6/uL [employer] Work Phone: WBC (Bld) [#/Vol] 4.8 10*3/uL 3.6 - 10.7 10*3/uL [employer] Work Phone: Test Performed by [facility], [address] [place] [address] [employer] Work Phone: CR Chest Portableon 09-23-19 21 CR Chest Portable Patient Name: MEGAN NASCIMENTO Diagnostic Radiology ACCESSION EXAM DATE/TIME PROCEDURE ORDERING PROVIDER [id number] 09/22/2020 09:20 EST CR Chest Portable MAURO PADGETT CPT code 97525 Reason For Exam (CR Chest Portable) chf [...] Transcribed Date and Time: 09/22/2020 9:31 Normal [facility] [email or web address] [facility] EKG 12 Leadon 09-22-2020 Chaim, [facility] Incoming Cardiology Results From [facility] - 09/22/2020 10:24 AM EST [facility] Test Date: 2020-09-21 Pat Name: Megan Nascimento Department: 2AHICU Room: 232 Gender: M Mems Engineer: DONATO : 1940 Requested By: MAURO PADGETT Order Number: [id number] Reading MD: Camden Pepper Measurements Intervals [place] Rate: 109 P: 0 [place]: QRS: -72 QRSD: 122 T: 124 QT: [...] On 09-22-2020 10:23:20 EST by Camden Pepper [facility] Work Phone: [facility] Test Date: 2020-09-21 Pat Name: Megan Nascimento Department: [facility] Room: [facility] Gender: M Mems Engineer: DONATO : 1940 Requested By: MAURO PADGETT Order Number: [id number] Reading MD: Camden Pepper Measurements Intervals [place] Rate: 109 P: 0 [place]: QRS: -72 QRSD: 122 T: 124 QT: [...] width (RBC) [Ratio] 34.1 % High 11.5-14.5 [facility] Comment on above: Performed By: #### B GLU #### [facility] [address] [place] [address] Hematocrit (Bld) [Volume fraction] 33.6 % Low 40.0-52.0 [facility] Comment on above: Performed By: #### B GLU #### [facility] [address] [place] [address] Hemoglobin (Bld) [Mass/Vol] 10.6 g/dL Low 13.0-18.0 [facility] Comment on above: Performed By: #### B GLU #### [facility] [address] [place] [address] MCH (RBC) [Entitic mass] 26.2 pg Normal 26.0-34.0 [facility] Comment on above: Performed By: #### B GLU #### [facility] [address] [place] [address] MCHC 31.6 % Low 32.0-36.0 [facility] Comment on above: Performed By: #### B GLU #### [facility] [address] [place] [address] MCV (RBC) [Entitic vol] 82.9 fL Normal 80.0-98.0 [facility] Comment on above: Performed By: #### B GLU #### [facility] [address] [place] [address] Platelet mean volume (Bld) [Entitic vol] 8.5 fL Normal 7.4-10.4 [facility] Comment on above: Performed By: #### B GLU #### [facility] [address] [place] [address] Platelets (Bld) [#/Vol] 207 10*3/uL Normal 140-440 [facility] Comment on above: Performed By: #### B GLU #### [facility] [address] [place] [address] RBC (Bld) [#/Vol] 4.05 10*6/uL Low 4.40-5.90 [facility] Comment on above: Performed By: #### B GLU #### [facility] [address] [place] [address] WBC (Bld) [#/Vol] 4.8 10*3/uL Normal 3.6-10.7 [facility] Comment on above: Performed By: #### B GLU #### [facility] [address] [place] [address] Hepatic Functionon 1 ALP [Catalytic activity/Vol] 100 U/L Normal 38-126 [facility] Comment on above: Order Comment: SLIGH T HEMOLYSIS Performed By: #### B GLU #### [facility] [address] [place] [address] ALT [Catalytic activity/Vol] 25 U/L Normal 0-49 [facility] Comment on above: Order Comment: SLIGH T HEMOLYSIS Result Comment: The ALT test is performed by an updated assay method. Please note that the reference intervals have been changed and are now sex specific. Performed By: #### B GLU #### [facility] [address] [place] [address] AST [Catalytic activity/Vol] 66 U/L High 15-46 [facility] Comment on above: Order Comment: SLIGH T HEMOLYSIS Performed By: #### B GLU #### [facility] [address] [place] [address] Bilirubin [Mass/Vol] 1.9 mg/dL High 0.2-1.3 [facility] Comment on above: Order Comment: SLIGH T HEMOLYSIS Performed By: #### B GLU #### [facility] [address] [place] [address] Protein [Mass/Vol] 6.0 g/dL Low 6.3-8.2 [facility] Comment on above: Order Comment: SLIGH T HEMOLYSIS Performed By: #### B GLU #### [facility] [address] [place] [address] Bilirubin.indirect [Mass/Vol] 0.0 mg/dL Normal 0.0-0.3 [facility] Comment on above: Order Comment: SLIGH T HEMOLYSIS Performed By: #### B GLU #### [facility] [address] [place] [address] Albumin [Mass/Vol] 3.2 g/dL Low 3.5-5.0 [facility] Comment on above: Order Comment: SLIGH T HEMOLYSIS Performed By: #### B GLU #### [facility] [email or web address] [facility] [address] [place] [address] Hepatic Function Panelon Albumin [Mass/Vol] 3.2 g/dL Low 3.5 - 5.0 g/dL [facility] Work Phone: ALP [Catalytic activity/Vol] 100 U/L 38 - 126 U/L [facility] Work Phone: ALT [Catalytic activity/Vol] 25 U/L 0 - 49 U/L [employer] Work Phone: Comment on above: The ALT [...] g/dL [facility] Work Phone: Test Performed by [facility], [address] [place], [place] [address] SLIGHT HEMOLYSIS [facility] Work Phone: Magnesiumon 09-22-2020 Magnesium [Mass/Vol] 1.5 mg/dL Low 1.6-2.3 [facility] [employer] Comment on above: Order Comment: SLIGH T HEMOLYSIS Performed By: #### B GLU #### [facility] [address] [place] [address] Magnesium [Mass/Vol] 1.5 mg/dL Low 1.6 - 2 .3 mg/dL [facility] Work Phone: Otheron 09-22-2020 Interpretation and review of laboratory results Abnormal [facility] Work Phone: Test Performed by [facility], [address] [place], [place] [address] SLIGHT HEMOLYSIS [facility] Work Phone: XR CHEST PORTABLEon 09-23-19 21 [place], [facility] Incoming [facility] - 09/22/2020 9:32 AM EST Patient Name: MEGAN NASCIMENTO Diagnostic Radiology ACCESSION EXAM DATE/TIME PROCEDURE ORDERING PROVIDER [id number] 09/22/2020 09:20 EST CR Chest Portable MAURO PADGETT CPT code 94477 Reason For Exam (CR Chest Portable) chf [...] AHMAD Transcribed Date and Time: 09/22/2020 9:31 [employer] Work Phone: Patient Name: MEGAN NASCIMENTO Diagnostic Radiology ACCESSION EXAM DATE/TIME PROCEDURE ORDERING PROVIDER [id number] 09/22/2020 09:20 EST CR Chest Portable MAURO PADGETT CPT code 45225 Reason For Exam (CR Chest Portable) chf [...] AHMAD Transcribed Date and Time: 09/22/2020 9:31 [employer] Work Phone: Basic Metabolic Panelon -0 Calcium [Mass/Vol] 9.3 mg/dL Normal 8.4-10.4 [facility] [email or web address] [facility] Comment on above: Performed By: #### L IPD2, BMP3, MG3 #### [facility] [address] [place] [address] Anion gap [Moles/Vol] 13 mmol/L Normal 3-13 [facility] Comment on above: Performed By: #### L IPD2, BMP3, MG3 #### [facility] [address] [place] [address] CO2 [Moles/Vol] 30 mmol/L Normal 22-30 [facility] Comment on above: Performed By: #### L IPD2, BMP3, MG3 #### [facility] [address] [place] [address] Glucose [Mass/Vol] 127 mg/dL High 70-100 [facility] Comment on above: Performed By: #### L IPD2, BMP3, MG3 #### [facility] [address] [place] [address] Urea nitrogen [Mass/Vol] 41 mg/dL High 7-20 [facility] Comment on above: Performed By: #### L IPD2, BMP3, MG3 #### [facility] [address] [place] [address] Creatinine [Mass/Vol] 2.57 mg/dL High 0.52-1.25 [facility] Comment on above: Performed By: #### L IPD2, BMP3, MG3 #### [facility] [address] [place] [address] GFR/1.73 sq M.predicted among blacks MDRD (S/P/Bld) [Vol rate/Area] 26.0 mL/min/{1.73_m2} Abnormal >60 [facility] Comment on above: Performed By: #### L IPD2, BMP3, MG3 #### [facility] [address] [place] [address] GFR/1.73 sq M.predicted among non-blacks MDRD (S/P/Bld) [Vol rate/Area] 22.4 mL/min/{1.73_m2} Abnormal >60 [facility] Comment on above: Result Comment: KDIG [...] By: #### L IPD2, BMP3, MG3 #### [facility] [address] [place] [address] Chloride [Moles/Vol] 97 mmol/L Low 98-107 [facility] Comment on above: Performed By: #### L IPD2, BMP3, MG3 #### [facility] [address] [place] [address] Potassium [Moles/Vol] 3.8 mmol/L Normal 3.5-5.1 [facility] Comment on above: Performed By: #### L IPD2, BMP3, MG3 #### [facility] [address] [place] [address] Sodium [Moles/Vol] 141 mmol/L Normal 135-145 [facility] Comment on above: Performed By: #### L IPD2, BMP3, MG3 #### [facility] [address] [place] [address] Anion gap [Moles/Vol] 13 mmol/L 3 - 13 mmol/L [facility] Work Phone: Calcium [Mass/Vol] 9.3 mg/dL 8.4 - 10. 4 mg/dL [facility] Work Phone: Chloride [Moles/Vol] 97 mmol/L Low 98 - 10 7 mmol/L [facility] Work Phone: CO2 [Moles/Vol] 30 mmol/L 22 - 30 mmol/L [facility] Work Phone: Creatinine [Mass/Vol] 2.57 mg/dL High 0.52 - 1.25 mg/dL [employer] Work Phone: EGFR IF NonAfrican Samoan 22.4 mL/min Abnormal >60 [employer] Work Phone: Comment on above: KDIGO guidelines [...] (S/P/Bld) [Vol rate/Area] 26.0 mL/min/{1.73_m2} Abnormal >60 [employer] Work Phone: Glucose [Mass/Vol] 127 mg/dL High 70 - 100 mg/dL [employer] Work Phone: Interpretation and review of laboratory results Abnormal [employer] Work Phone: Potassium [Moles/Vol] 3.8 mmol/L 3.5 - 5.1 mmol/L [employer] Work Phone: Sodium [Moles/Vol] 141 mmol/L 135 - 145 mmol/L [employer] Work Phone: Urea nitrogen [Mass/Vol] 41 mg/dL High 7 - 20 mg/d L [employer] Work Phone: Test Performed by [facility], [address] [place] [address] [employer] Work Phone: Anion gap [Moles/Vol] 15 mmol/L [...] mg/dL [facility] Work Phone: EGFR IF NonAfrican Samoan 23.4 mL/min Abnormal >60 [facility] Work Phone: [...] [Moles/Vol] 140 mmol/L 135 - 145 mmol/L [facility] Work Phone: Urea nitrogen [Mass/Vol] 38 mg/dL High 7 - 20 mg/d L [facility] Work Phone: Test Performed by [facility], [facility] [place] [address] [employer] Work Phone: Brain Natriuretic Peptideon 09-21-2020 Interpretation and review of laboratory results Abnormal [facility] Work Phone: Natriuretic peptide B (Bld) [Mass/Vol] 19149 pg/mL High 0 - 450 pg/mL [facility] Work Phone: Test Performed by [facility], [address] [place] [address] [employer] Work Phone: Interpretation and review of laboratory results Abnormal [employer] Work Phone: Natriuretic peptide B (Bld) [Mass/Vol] 96775 pg/mL High 0 - 450 pg/mL [facility] Work Phone: Test Performed by [facility], [facility] [employer] [place] [address] [employer] Work Phone: CBC Auto Differentialon 03-0 Absolute Baso # 0.1 10*3/uL 0.0 - 0.2 10*3/uL [facility] Work Phone: Absolute Neut # 3.9 10*3/uL 1.8 - 7.0 10*3/uL [facility] Work Phone: Basophils/100 WBC (Bld) 1.7 % 0.0 - 2.0 % [employer] Work Phone: Eosinophils (Bld) [#/Vol] 0.1 10*3/uL 0.0 - 0.5 10*3/uL [employer] Work Phone: Eosinophils/100 WBC (Bld) 2.0 % 1.0 - 6.0 % [employer] Work Phone: Erythrocyte distribution width (RBC) [Ratio] 34.0 % High 11.5 - 14.5 % [employer] Work Phone: Granulocytes/100 WBC (Bld) 71.9 % 40.0 - 80.0 % [employer] Work Phone: Hematocrit (Bld) [Volume fraction] 37.4 % Low 40.0 - 52.0 % [employer] Work Phone: Hemoglobin (Bld) [Mass/Vol] 11.7 g/dL Low 13.0 - 18.0 g/dL [employer] Work Phone: Interpretation and review of laboratory results Abnormal [employer] Work Phone: Lymphocytes (Bld) [#/Vol] 1.0 10*3/uL 1.0 - 4.3 10*3/uL [employer] Work Phone: Lymphocytes/100 WBC (Bld) 17.5 % Low 20.0 - 40.0 % [employer] Work Phone: MCH (RBC) [Entitic mass] 26.2 pg 26. 0 - 34.0 pg [facility] Work Phone: MCHC (RBC) [Mass/Vol] 31.4 % Low 32.0 - 36.0 % [employer] Work Phone: MCV (RBC) [Entitic vol] 83.6 fL 80.0 - 98.0 fL [employer] Work Phone: Monocytes (Bld) [#/Vol] 0.4 10*3/uL 0.0 - 0.8 10*3/uL [employer] Work Phone: Monocytes/100 WBC (Bld) 6.9 % 2.0 - 10.0 % [employer] Work Phone: Platelet mean volume (Bld) [Entitic vol] 8.9 fL 7.4 - 10.4 fL [employer] Work Phone: Platelets (Bld) [#/Vol] 237 10*3/uL 140 - 440 10*3/uL [facility] Work Phone: RBC (Bld) [#/Vol] 4.48 10*6/uL 4.40 - 5.9 0 10*6/uL [employer] Work Phone: WBC (Bld) [#/Vol] 5.5 10*3/uL 3.6 - 10.7 10*3/uL [facility] Work Phone: [facility], [address] [place] [address] [facility] Work Phone: Hemogram w/ Autodiffon 09-21 Abs Baso Cnt 0.1 10*3/uL Normal 0.0-0.2 [facility] Comment on above: Performed By: #### L IPD2, BMP3, MG3 #### [facility] [address] [place] [address] Abs Neutrophile Cnt 3.9 10*3/uL Normal 1.8-7.0 [facility] [employer] Comment on above: Performed By: #### L IPD2, BMP3, MG3 #### [facility] [address] [place] [address] Basophils/100 WBC (Bld) 1.7 % Normal 0.0-2.0 [facility] Comment on above: Performed By: #### L IPD2, BMP3, MG3 #### [facility] [address] [place] [address] Eosinophils (Bld) [#/Vol] 0.1 10*3/uL Normal 0.0-0.5 [facility] Comment on above: Performed By: #### L IPD2, BMP3, MG3 #### [facility] [address] [place] [address] Eosinophils/100 WBC (Bld) 2.0 % Normal 1.0-6.0 [facility] Comment on above: Performed By: #### L IPD2, BMP3, MG3 #### [facility] [address] [place] [address] Erythrocyte distribution width (RBC) [Ratio] 34.0 % High 11.5-14.5 [facility] Comment on above: Performed By: #### L IPD2, BMP3, MG3 #### [facility] [address] [place] [address] Granulocytes/100 WBC (Bld) 71.9 % Normal 40.0-80.0 [facility] Comment on above: Performed By: #### L IPD2, BMP3, MG3 #### [facility] [address] [place] [address] Hematocrit (Bld) [Volume fraction] 37.4 % Low 40.0-52.0 [facility] Comment on above: Performed By: #### L IPD2, BMP3, MG3 #### [facility] [address] [place] [address] Hemoglobin (Bld) [Mass/Vol] 11.7 g/dL Low 13.0-18.0 [facility] Comment on above: Performed By: #### L IPD2, BMP3, MG3 #### [facility] [address] [place] [address] Lymphocytes (Bld) [#/Vol] 1.0 10*3/uL Normal 1.0-4.3 [facility] Comment on above: Performed By: #### L IPD2, BMP3, MG3 #### [facility] [address] [place] [address] Lymphocytes/100 WBC (Bld) 17.5 % Low 20.0-40.0 [facility] Comment on above: Performed By: #### L IPD2, BMP3, MG3 #### [facility] [address] [place] [address] MCH (RBC) [Entitic mass] 26.2 pg Normal 26.0-34.0 [facility] Comment on above: Performed By: #### L IPD2, BMP3, MG3 #### [facility] [address] [place] [address] MCHC 31.4 % Low 32.0-36.0 [facility] Comment on above: Performed By: #### L IPD2, BMP3, MG3 #### [facility] [address] [place] [address] MCV (RBC) [Entitic vol] 83.6 fL Normal 80.0-98.0 [facility] Comment on above: Performed By: #### L IPD2, BMP3, MG3 #### [facility] [address] [place] [address] Monocytes (Bld) [#/Vol] 0.4 10*3/uL Normal 0.0-0.8 [facility] Comment on above: Performed By: #### L IPD2, BMP3, MG3 #### [facility] [address] [place] [address] Monocytes/100 WBC (Bld) 6.9 % Normal 2.0-10.0 [facility] Comment on above: Performed By: #### L IPD2, BMP3, MG3 #### [facility] [address] [place] [address] Platelet mean volume (Bld) [Entitic vol] 8.9 fL Normal 7.4-10.4 [facility] Comment on above: Performed By: #### L IPD2, BMP3, MG3 #### [facility] [address] [place] [address] Platelets (Bld) [#/Vol] 237 10*3/uL Normal 140-440 [facility] Comment on above: Performed By: #### L IPD2, BMP3, MG3 #### [facility] [address] [place] [address] RBC (Bld) [#/Vol] 4.48 10*6/uL Normal 4.40-5.90 [facility] Comment on above: Performed By: #### L IPD2, BMP3, MG3 #### [facility] [address] [place] [address] WBC (Bld) [#/Vol] 5.5 10*3/uL Normal 3.6-10.7 [facility] Comment on above: Performed By: #### L IPD2, BMP3, MG3 #### [facility] [address] [place] [address] Metabolic Panelon 09-21-2020 Sodium [Moles/Vol] Slight [facility] Work Phone: NT pro BNPon 09-21-2020 Natriuretic peptide B (Bld) [Mass/Vol] 64004 pg/mL High 0-450 [facility] Comment on above: Performed By: #### L IPD2, BMP3, MG3 #### [facility] [address] [place] [address] RBC MORPHOLOGYon 09-21-2020 Anisocytosis Ql (Bld) Moderate [facility] Work Phone: RBC morphology finding Nom (Bld) ABNORMAL [facility] Work Phone: Test Performed by [facility], [address] [place] [address] [facility] Work Phone: RBC Morphologyon 09-21-2020 Acanthocytes Slight Normal [facility] Comment on above: Performed By: #### L IPD2, BMP3, MG3 #### [facility] [address] [place] [address] Anisocytosis Ql (Bld) Moderate Normal [facility] Comment on above: Performed By: #### L IPD2, BMP3, MG3 #### [facility] [address] [place] [address] Canute Cells Slight Normal [facility] Comment on above: Performed By: #### L IPD2, BMP3, MG3 #### [facility] [address] [place] [address] Hypochromia Slight Normal [facility] Comment on above: Performed By: #### L IPD2, BMP3, MG3 #### [facility] [address] [place] [address] Poikilocytosis Slight Normal [facility] Comment on above: Performed By: #### L IPD2, BMP3, MG3 #### [facility] [address] [place] [address] RBC morphology finding Nom (Bld) ABNORMAL Normal [facility] Comment on above: Performed By: #### L IPD2, BMP3, MG3 #### [facility] [address] [place] [address] Schistocytes Slight Normal [facility] Comment on above: Performed By: #### L IPD2, BMP3, MG3 #### [facility] [address] [place] [address] Basic Metabolic Panel w/ Ref taz to MG 09-15-2020 Anion gap [Moles/Vol] 12 mmol/L 3 - 13 mmol/L [employer] Work Phone: Calcium [Mass/Vol] 8.7 mg/dL 8.4 - 10. 4 mg/dL [facility] Work Phone: Chloride [Moles/Vol] 96 mmol/L Low 98 - 10 7 mmol/L [facility] Work Phone: CO2 [Moles/Vol] 29 mmol/L 22 - 30 mmol/L [facility] Work Phone: Creatinine [Mass/Vol] 2.21 mg/dL High 0.52 - 1.25 mg/dL [employer] Work Phone: EGFR IF NonAfrican Samoan 26.9 mL/min Abnormal >60 [facility] Work Phone: [...] L [facility] Work Phone: Test Performed by [facility], [facility] [place] [address] [facility] Work Phone: Magnesiumon 09-15-2020 Magnesium [Mass/Vol] 1.7 mg/dL 1.6 - 2 .3 mg/dL [employer] Work Phone: Test Performed by [facility], [facility] [place] [address] [facility] Work Phone: Basic Metabolic Panel w/ [...] mg/dL [facility] Work Phone: EGFR IF NonAfrican Samoan 28.3 mL/min Abnormal >60 [facility] Work Phone: [...] (S/P/Bld) [Vol rate/Area] 32.8 mL/min/{1.73_m2} Abnormal >60 [employer] Work Phone: Glucose [Mass/Vol] 120 mg/dL High 70 - 100 mg/dL [employer] Work Phone: Interpretation and review of laboratory results Abnormal [employer] Work Phone: Potassium [Moles/Vol] 5.0 mmol/L 3.5 - 5.1 mmol/L [employer] Work Phone: Comment on above: Moderately hemolysed , interpret with caution. Sodium [Moles/Vol] 135 mmol/L 135 - 145 mmol/L [employer] Work Phone: Urea nitrogen [Mass/Vol] 43 mg/dL High 7 - 20 mg/d L [employer] Work Phone: Test Performed by [facility], [address] [place] [address] [employer] Work Phone: Anion gap [Moles/Vol] 9 mmol/L 3 - 13 mmol/L [employer] Work Phone: Calcium [Mass/Vol] 8.6 mg/dL 8.4 - 10. 4 mg/dL [employer] Work Phone: Chloride [Moles/Vol] 96 mmol/L Low 98 - 10 7 mmol/L [employer] Work Phone: CO2 [Moles/Vol] 29 mmol/L 22 - 30 mmol/L [employer] Work Phone: Creatinine [Mass/Vol] 2.53 mg/dL High 0.52 - 1.25 mg/dL [employer] Work Phone: EGFR IF NonAfrican Samoan 22.8 mL/min Abnormal >60 [employer] Work Phone: Comment on above: KDIGO guidelines [...] (S/P/Bld) [Vol rate/Area] 26.5 mL/min/{1.73_m2} Abnormal >60 [employer] Work Phone: Glucose [Mass/Vol] 130 mg/dL High 70 - 100 mg/dL [employer] Work Phone: Interpretation and review of laboratory results Abnormal [employer] Work Phone: Potassium [Moles/Vol] 3.3 mmol/L Low 3.5 - 5.1 mmol/L [employer] Work Phone: Sodium [Moles/Vol] 135 mmol/L 135 - 145 mmol/L [employer] Work Phone: Urea nitrogen [Mass/Vol] 48 mg/dL High 7 - 20 mg/d L [employer] Work Phone: Test Performed by [facility], [address] [place] [address] [employer] Work Phone: CBCon 09-14-2020 Erythrocyte distribution width (RBC) [Ratio] 34.1 % High 11.5 - 14.5 % [facility] Work Phone: Hematocrit (Bld) [Volume fraction] 33.9 % Low 40 - 52 % [facility] Work Phone: Hemoglobin (Bld) [Mass/Vol] 10.6 g/dL Low 13 - 18 g/dL [facility] Work Phone: Interpretation and review of laboratory results Abnormal [facility] Work Phone: MCH (RBC) [Entitic mass] 25.0 pg Low 26 - 34 pg [facility] Work Phone: MCHC (RBC) [Mass/Vol] 31.4 % Low 32 - 36 % [facility] Work Phone: MCV (RBC) [Entitic vol] 79.8 fL Low 80 - 98 fL [facility] Work Phone: Platelet mean volume (Bld) [Entitic vol] 8.3 fL 7.4 - 10.4 fL [facility] Work Phone: Platelets (Bld) [#/Vol] 225 10*3/uL 140 - 440 10*3/uL [facility] Work Phone: RBC (Bld) [#/Vol] 4.24 10*6/uL Low 4.4 - 5.9 10*6/uL [facility] Work Phone: WBC (Bld) [#/Vol] 5.4 10*3/uL 3.6 - 10.7 10*3/uL [facility] Work Phone: Test Performed by [facility] [address] [facility] Work Phone: Erythrocyte distribution width (RBC) [Ratio] 34.2 % High 11.5 - 14.5 % [facility] Work Phone: Hematocrit (Bld) [Volume fraction] 32.3 % Low 40 - 52 % [facility] Work Phone: Hemoglobin (Bld) [Mass/Vol] 10.1 g/dL Low 13 - 18 g/dL [facility] Work Phone: Interpretation and review of laboratory results Abnormal [facility] Work Phone: MCH (RBC) [Entitic mass] 25.1 pg Low 26 - 34 pg [facility] Work Phone: MCHC (RBC) [Mass/Vol] 31.1 % Low 32 - 36 % [facility] Work Phone: MCV (RBC) [Entitic vol] 80.7 fL 80 - 98 fL S [facility] Work Phone: Platelet mean volume (Bld) [Entitic vol] 8.8 fL 7.4 - 10.4 fL [facility] Work Phone: Platelets (Bld) [#/Vol] 230 10*3/uL 140 - 440 10*3/uL [facility] Work Phone: RBC (Bld) [#/Vol] 4.00 10*6/uL Low 4.4 - 5.9 10*6/uL [facility] Work Phone: WBC (Bld) [#/Vol] 6.0 10*3/uL 3.6 - 10.7 10*3/uL [facility] Work Phone: Test Performed by [facility], [facility] [place] [address] [facility] Work Phone: Magnesiumon 09-14-2020 Magnesium [Mass/Vol] 1.9 mg/dL 1.6 - 2 .3 mg/dL [facility] Work Phone: Comment on above: Moderately hemolysed , interpret with caution. Test Performed by [facility], [place] [address] [facility] Work Phone: Magnesium [Mass/Vol] 1.6 mg/dL 1.6 - 2 .3 mg/dL [facility] Work Phone: Test Performed by [facility], [address] [place] [address] [facility] Work Phone: US RETROPERITONEAL COMPLETEo n 09-14-2020 Chaim, [facility] Incoming Radiology Results From [employer] - 09/14/2020 2:49 PM EST Patient Name: MEGAN NASCIMENTO Ultrasound ACCESSION EXAM DATE/TIME PROCEDURE ORDERING PROVIDER [id number] 09/14/2020 12:50 EST US Retroperitoneal LENKA, BUTTON SEWER HAND, CINDY LEIJA CPT code 34330 Reason For Exam (US Retroperitoneal Complete) r/o [...] RISA Transcribed Date and Time: 09/14/2020 2:45 [facility] Work Phone: Patient Name: MEGAN NASCIMENTO Ultrasound ACCESSION EXAM DATE/TIME PROCEDURE ORDERING PROVIDER [id number] 09/14/2020 12:50 EST US Retroperitoneal LENKA, DIANA, CINDY LEIJA CPT code 21646 Reason For Exam (US Retroperitoneal Complete) r/o [...] RISA Transcribed Date and Time: 09/14/2020 2:45 [facility] Work Phone: BASIC METABOLIC PANELon - Anion gap [Moles/Vol] 13 mmol/L 3 - 13 mmol/L [facility] Work Phone: Calcium [Mass/Vol] 8.7 mg/dL 8.4 - 10. 4 mg/dL [facility] Work Phone: Chloride [Moles/Vol] 95 mmol/L Low 98 - 10 7 mmol/L [facility] Work Phone: CO2 [Moles/Vol] 27 mmol/L 22 - 30 mmol/L [facility] Work Phone: Creatinine [Mass/Vol] 3.08 mg/dL High 0.52 - 1.25 mg/dL [facility] Work Phone: EGFR IF NonAfrican Samoan 18.0 mL/min Abnormal >60 [facility] Work Phone: [...] (S/P/Bld) [Vol rate/Area] 20.9 mL/min/{1.73_m2} Abnormal >60 [facility] Work Phone: Glucose [Mass/Vol] 146 mg/dL High 70 - 100 mg/dL [facility] Work Phone: Interpretation and review of laboratory results Abnormal [facility] Work Phone: Potassium [Moles/Vol] 4.1 mmol/L 3.5 - 5.1 mmol/L [facility] Work Phone: Sodium [Moles/Vol] 134 mmol/L Low 135 - 145 mmol/L [facility] Work Phone: Urea nitrogen [Mass/Vol] 47 mg/dL High 7 - 20 mg/d L [employer] Work Phone: EKG 12 Leadon 09-13-2020 Chaim, [facility] Incoming Cardiology Results From [employer] - 09/13/2020 10:50 AM EST [facility] Test Date: 2020-09-12 Pat Name: Megan Nascimento Department: 1A1C Room: [facility] Gender: M 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 : 1940 Requested By: GIBSON DUGAN Order Number: [id number] Reading MD: Judith Diaz Measurements Intervals [place] Rate: 79 P: 18 [place]: 167 QRS: 171 QRSD: 130 T: -23 QT: 470 QTc: 539 Interpretive Statements Atrial-sensed ventricular-paced rhythm Electronically Signed On 09-13-2020 10:49:15 EST by Judith Diaz [facility] Work Phone: [facility] Test Date: 2020-09-12 Pat Name: Megan Nascimento Department: [facility] Room: [facility] Gender: M 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 : 1940 Requested By: GIBSON DUGAN Order Number: [id number] Reading MD: Judith Diaz Measurements Intervals [place] Rate: 79 P: 18 [place]: 167 QRS: 171 QRSD: 130 T: -23 QT: 470 QTc: 539 Interpretive Statements Atrial-sensed ventricular-paced rhythm Electronically Signed On 09-13-2020 10:49:15 EST by Judith Emily [facility] Work Phone: Magnesiumon 09-13-2020 Magnesium [Mass/Vol] 1.6 mg/dL 1.6 - 2 .3 mg/dL [facility] Work Phone: Otheron 09-13-2020 Test Performed [place] [address] [employer] Work Phone: Add On Lab Teston 09-12-2020 Sodium [Moles/Vol] Accepted [facility] Work Phone: Comment on above: Specimen available & acceptable for analysis. Test Performed by [facility], [place] [address] [employer] Work Phone: BASIC METABOLIC PANELon 08-22 Anion gap [Moles/Vol] 14 mmol/L High 3 - 13 mmol/L [facility] Work Phone: Calcium [Mass/Vol] 8.4 mg/dL 8.4 - 10. 4 mg/dL [facility] Work Phone: Chloride [Moles/Vol] 97 mmol/L Low 98 - 10 7 mmol/L [facility] Work Phone: CO2 [Moles/Vol] 26 mmol/L 22 - 30 mmol/L [facility] Work Phone: Creatinine [Mass/Vol] 2.56 mg/dL High 0.52 - 1.25 mg/dL [facility] Work Phone: EGFR IF NonAfrican Samoan 22.5 mL/min Abnormal >60 [facility] Work Phone: Comment on above: KDIGO guidelines [...] (S/P/Bld) [Vol rate/Area] 26.1 mL/min/{1.73_m2} Abnormal >60 [facility] Work Phone: Glucose [Mass/Vol] 160 mg/dL High 70 - 100 mg/dL [facility] Work Phone: Interpretation and review of laboratory results Abnormal [employer] Work Phone: Potassium [Moles/Vol] 3.6 mmol/L 3.5 - 5.1 mmol/L [employer] Work Phone: Sodium [Moles/Vol] 137 mmol/L 135 - 145 mmol/L [facility] Work Phone: Urea nitrogen [Mass/Vol] 40 mg/dL High 7 - 20 mg/d L [facility] Work Phone: Test Performed by [facility] [address] [employer] Work Phone: Brain Natriuretic Peptideon 09-12-2020 Interpretation and review of laboratory results Abnormal [facility] Work Phone: Natriuretic peptide B (Bld) [Mass/Vol] 14827 pg/mL High 0 - 450 pg/mL [facility] Work Phone: Test Performed by [facility], [facility] [place] [address] [employer] Work Phone: CBC Auto Differentialon 08-22 Absolute Baso # 0.0 10*3/uL 0 - 0.2 10*3/uL [facility] Work Phone: Absolute Neut # 3.0 10*3/uL 1.8 - 7 10*3/uL [employer] Work Phone: Basophils/100 WBC (Bld) 0.5 % 0 - 2 % [facility] Work Phone: Eosinophils (Bld) [#/Vol] 0.0 10*3/uL 0 - 0.5 10*3/uL [employer] Work Phone: Eosinophils/100 WBC (Bld) 0.0 % Low 1 - 6 % [employer] Work Phone: Erythrocyte distribution width (RBC) [Ratio] 34.0 % High 11.5 - 14.5 % [employer] Work Phone: Granulocytes/100 WBC (Bld) 77.3 % 40 - 80 % [employer] Work Phone: Hematocrit (Bld) [Volume fraction] 33.1 % Low 40 - 52 % [employer] Work Phone: Hemoglobin (Bld) [Mass/Vol] 10.2 g/dL Low 13 - 18 g/dL [employer] Work Phone: Interpretation and review of laboratory results Abnormal [employer] Work Phone: Lymphocytes (Bld) [#/Vol] 0.7 10*3/uL Low 1 - 4.3 10*3/uL [facility] Work Phone: Lymphocytes/100 WBC (Bld) 17.3 % Low 20 - 40 % [facility] Work Phone: [phone] MCH (RBC) [Entitic mass] 24.8 pg Low 26 - 34 pg [facility] Work Phone: [phone] MCHC (RBC) [Mass/Vol] 30.8 % Low 32 - 36 % [facility] Work Phone: [phone] MCV (RBC) [Entitic vol] 80.5 fL 80 - 98 fL [facility] Work Phone: [phone] Monocytes (Bld) [#/Vol] 0.2 10*3/uL 0 - 0.8 10*3/uL [facility] Work Phone: [phone] Monocytes/100 WBC (Bld) 4.9 % 2 - 10 % [facility] Work Phone: [phone] Platelet mean volume (Bld) [Entitic vol] 8.9 fL 7.4 - 10.4 fL [facility] Work Phone: [phone] Platelets (Bld) [#/Vol] 276 10*3/uL 140 - 440 10*3/uL [facility] Work Phone: [phone] RBC (Bld) [#/Vol] 4.11 10*6/uL Low 4.4 - 5.9 10*6/uL [facility] Work Phone: [phone] WBC (Bld) [#/Vol] 3.9 10*3/uL 3.6 - 10.7 10*3/uL [facility] Work Phone: [phone] Test Performed by [facility], [facility] [place] [address] [facility] Work Phone: [phone] Lactic Acid, Plasmaon 2020 Lactate [Moles/Vol] 1.8 mmol/L 0.7 - 2 mmol/L [facility] Work Phone: Test Performed by [facility], [facility] [place] [address] [facility] Work Phone: [phone] Interpretation and review of laboratory results Abnormal [facility] Work Phone: Lactate [Moles/Vol] 2.6 mmol/L Critically high 0.7 - 2 mmol/L [facility] Work Phone: Test Performed by [facility], [facility] [place] [address] [facility] Work Phone: Interpretation and review of laboratory results Abnormal [facility] Work Phone: Lactate [Moles/Vol] 2.8 mmol/L Critically high 0.7 - 2 mmol/L [facility] Work Phone: Test Performed by [facility], [facility] [place] [address] [facility] Work Phone: Metabolic Panelon 09-12-2020 Sodium [Moles/Vol] Slight [facility] Work Phone: RBC MORPHOLOGYon 09-12-2020 Anisocytosis Ql (Bld) Slight [facility] Work Phone: RBC morphology finding Nom (Bld) ABNORMAL [facility] Work Phone: Test Performed by [facility], [facility] [place] [address] [facility] Work Phone: XR CHEST (2 VW)on 09-12-2020 Patient Name: MEGAN NASCIMENTO Diagnostic Radiology ACCESSION EXAM DATE/TIME PROCEDURE ORDERING PROVIDER [id number] 09/12/2020 09:53 EST CR Chest PA & LAT MD LUIS, MARCELA CPT code 82517 Reason For Exam (CR Chest PA & [...] LAURA Transcribed Date and Time: 09/12/2020 10:00 [employer] Work Phone: Chaim, [facility] Incoming [facility] - 09/12/2020 10:03 AM EST Patient Name: MEGAN NASCIMENTO Diagnostic Radiology ACCESSION EXAM DATE/TIME PROCEDURE ORDERING PROVIDER [id number] 09/12/2020 09:53 EST CR Chest PA & LAT MD LUIS, MARCELA CPT code 01829 Reason For Exam (CR Chest PA & [...] LAURA Transcribed Date and Time: 09/12/2020 10:00 [employer] Work Phone: CT Abdomen Pelvis Wo Contras ton 09-05-2020 Patient Name: MEGAN NASCIMENTO Computed Tomography ACCESSION EXAM DATE/TIME PROCEDURE ORDERING PROVIDER [id number] 09/05/2020 22:[address] Abdomen/Pelvis (No [id number] -MORAH, J PO, No IV) CPT code 34141 Reason For Exam (CT Abdomen/Pelvis (No PO, [...] Phone: [facility], [facility] - 09/05/2020 10:43 PM EST Patient Name: [id number] Tomography ACCESSION EXAM DATE/TIME PROCEDURE ORDERING PROVIDER [id number] 09/05/2020 22:[address] Abdomen/Pelvis (No [id number] -Shamika GLASGOW PO, No IV) CPT code 89501 Reason For Exam (CT Abdomen/Pelvis (No PO, [...] Tomography ACCESSION EXAM DATE/TIME PROCEDURE ORDERING PROVIDER [id number] 09/05/2020 22:[address] Abdomen/Pelvis (No [id number] -Shamika GLASGOW PO, No IV) CPT code 95843 Reason For Exam (CT Abdomen/Pelvis (No PO, [...] Transcribed Date and Time: 09/05/2020 10:43 Normal [facility] Comp Metabolic Panelon 09-05 ALP [Catalytic activity/Vol] 107 U/L Normal 38-126 [facility] Comment on above: Performed By: #### B NP3, TROPN, BMP3, HEMDF #### [facility] [address] [place] [address] ALT [Catalytic activity/Vol] 43 U/L Normal 0-49 [facility] Comment on above: Result Comment: The ALT test is performed by an updated assay method. Please note that the reference intervals have been changed and are now sex specific. Performed By: #### B NP3, TROPN, BMP3, HEMDF #### [facility] [address] [place] [address] Calcium [Mass/Vol] 8.9 mg/dL Normal 8.4-10.4 [facility] Comment on above: Performed By: #### B NP3, TROPN, BMP3, HEMDF #### [facility] [address] [place] [address] Glucose [Mass/Vol] 130 mg/dL High 70-100 [facility] Comment on above: Performed By: #### B NP3, TROPN, BMP3, HEMDF #### [facility] [address] [place] [address] Protein [Mass/Vol] 7.1 g/dL Normal 6.3-8.2 [facility] Comment on above: Performed By: #### B NP3, TROPN, BMP3, HEMDF #### [facility] [address] [place] [address] Urea nitrogen [Mass/Vol] 39 mg/dL High 7-20 [facility] Comment on above: Performed By: #### B NP3, TROPN, BMP3, HEMDF #### [facility] [address] [place] [address] Anion gap [Moles/Vol] 15 mmol/L High 3-13 [facility] Comment on above: Performed By: #### B NP3, TROPN, BMP3, HEMDF #### [facility] [address] [place] [address] AST [Catalytic activity/Vol] 84 U/L High 15-46 [facility] Comment on above: Performed By: #### B NP3, TROPN, BMP3, HEMDF #### [facility] [address] [place] [address] Bilirubin [Mass/Vol] 1.9 mg/dL High 0.2-1.3 [facility] Comment on above: Performed By: #### B NP3, TROPN, BMP3, HEMDF #### [facility] [address] [place] [address] CO2 [Moles/Vol] 30 mmol/L Normal 22-30 [facility] Comment on above: Performed By: #### B NP3, TROPN, BMP3, HEMDF #### [facility] [address] [place] [address] Creatinine [Mass/Vol] 2.73 mg/dL High 0.52-1.25 [facility] Comment on above: Performed By: #### B NP3, TROPN, BMP3, HEMDF #### [facility] [address] [place] [address] GFR/1.73 sq M.predicted among blacks MDRD (S/P/Bld) [Vol rate/Area] 24.1 mL/min/{1.73_m2} Abnormal >60 [facility] Comment on above: Performed By: #### B NP3, TROPN, BMP3, HEMDF #### [facility] [address] [place] [address] GFR/1.73 sq M.predicted among non-blacks MDRD (S/P/Bld) [Vol rate/Area] 20.8 mL/min/{1.73_m2} Abnormal >60 [facility] Comment on above: Result Comment: KDIG [...] #### B NP3, TROPN, BMP3, HEMDF #### [facility] [address] [place] [address] Chloride [Moles/Vol] 97 mmol/L Low 98-107 [facility] Comment on above: Performed By: #### B NP3, TROPN, BMP3, HEMDF #### [facility] [address] [place] [address] Potassium [Moles/Vol] 3.9 mmol/L Normal 3.5-5.1 [facility] Comment on above: Performed By: #### B NP3, TROPN, BMP3, HEMDF #### [facility] [address] [place] [address] Sodium [Moles/Vol] 141 mmol/L Normal 135-145 [facility] Comment on above: Performed By: #### B NP3, TROPN, BMP3, HEMDF #### [facility] [address] [place] [address] Albumin [Mass/Vol] 4.3 g/dL Normal 3.5-5.0 [facility] Comment on above: Performed By: #### B NP3, TROPN, BMP3, HEMDF #### [facility] [address] [place] [address] Complete Urinalysison 2020 Appearance (U) Clear Normal Clear [facility] Comment on above: Result Comment: . Performed By: #### B NP3, TROPN, BMP3, HEMDF #### [facility] [address] [place] [address] Bacteria Few Abnormal Negative [facility] Comment on above: Result Comment: . Performed By: #### B NP3, TROPN, BMP3, HEMDF #### [facility] [address] [place] [address] Bilirubin,Urine Negative Normal Negative [facility] Comment on above: Result Comment: . Performed By: #### B NP3, TROPN, BMP3, HEMDF #### [facility] [address] [place] [address] Cast, Hyaline 26 - 50 Abnormal Negative [facility] Comment on above: Result Comment: . Performed By: #### B NP3, TROPN, BMP3, HEMDF #### [facility] [address] [place] [address] Color (U) Dark-Yellow Abnormal Lt. Yellow [facility] Comment on above: Result Comment: . Performed By: #### B NP3, TROPN, BMP3, HEMDF #### [facility] [address] [place] [address] Glucose Ql (U) Normal Normal Normal (<70) [facility] Comment on above: Result Comment: . Performed By: #### B NP3, TROPN, BMP3, HEMDF #### [facility] [address] [place] [address] Ketone,Urine Negative Normal Negative [facility] Comment on above: Result Comment: . Performed By: #### B NP3, TROPN, BMP3, HEMDF #### [facility] [address] [place] [address] Leukocytes,Urine Negative Normal Negative [facility] Comment on above: Result Comment: . Performed By: #### B NP3, TROPN, BMP3, HEMDF #### [facility] [address] [place] [address] Mucous Threads Few Normal Negative [facility] Comment on above: Result Comment: . Performed By: #### B NP3, TROPN, BMP3, HEMDF #### [facility] [address] [place] [address] Nitrites,Urine Negative Normal Negative [facility] Comment on above: Result Comment: . Performed By: #### B NP3, TROPN, BMP3, HEMDF #### [facility] [address] [place] [address] Non-Squamous Epithelial < 1 Abnormal Negative [facility] Comment on above: Result Comment: . Performed By: #### B NP3, TROPN, BMP3, HEMDF #### [facility] [address] [place] [address] Occult Blood,Urine Negative Normal Negative [facility] Comment on above: Result Comment: . Performed By: #### B NP3, TROPN, BMP3, HEMDF #### [facility] [address] [place] [address] pH,Urine 5.0 Normal 5.0-8.0 [facility] Comment on above: Result Comment: . Performed By: #### B NP3, TROPN, BMP3, HEMDF #### [facility] [address] [place] [address] Protein (U) [Mass/Vol] 30 mg/dL Abnormal Negative [facility] Comment on above: Result Comment: . Performed By: #### B NP3, TROPN, BMP3, HEMDF #### [facility] [address] [place] [address] RBC, Urine 0 - 2 Normal 0-2 [facility] Comment on above: Result Comment: . Performed By: #### B NP3, TROPN, BMP3, HEMDF #### [facility] [address] [place] [address] Specific [place],Urine 1.018 Normal 1.005 - 1.030 [facility] Comment on above: Result Comment: . Performed By: #### B NP3, TROPN, BMP3, HEMDF #### [facility] [address] [place] [address] Squamous Epithelial 0 - 2 Normal 3-5 [facility] Comment on above: Result Comment: . Performed By: #### B NP3, TROPN, BMP3, HEMDF #### [facility] [address] [place] [address] Urobilinogen,Urine 2 mg/dL Abnormal Normal (0-1) [facility] Comment on above: Result Comment: . Performed By: #### B NP3, TROPN, BMP3, HEMDF #### [facility] [address] [place] [address] WBC, Urine 3 - 5 Normal 0-5 [facility] Comment on above: Result Comment: Conf irmed by light microscopy. . Performed By: #### B NP3, TROPN, BMP3, HEMDF #### [facility] [address] [place] [address] Comprehensive Metabolic Pane greg 09-05-2020 Albumin [Mass/Vol] 4.3 g/dL 3.5 - 5 g/dL [facility] Work Phone: ALP [Catalytic activity/Vol] 107 U/L 38 - 126 U/L [facility] Work Phone: ALT [Catalytic activity/Vol] 43 U/L 0 - 49 U/L [facility] Work Phone: Comment on above: The ALT test is perf ormed by an updated assay method. Please note that the reference intervals have been changed and are now sex specific. Anion gap [Moles/Vol] 15 mmol/L High 3 - 13 mmol/L [facility] Work Phone: AST [Catalytic activity/Vol] 84 U/L High 15 - 46 U/L [facility] Work Phone: Bilirubin Ql (U) 1.9 mg/dL High 0.2 - 1.3 mg/dL [facility] Work Phone: Calcium [Mass/Vol] 8.9 mg/dL 8.4 - 10. 4 mg/dL [facility] Work Phone: Chloride [Moles/Vol] 97 mmol/L Low 98 - 10 7 mmol/L [facility] Work Phone: CO2 [Moles/Vol] 30 mmol/L 22 - 30 mmol/L [facility] Work Phone: Creatinine [Mass/Vol] 2.73 mg/dL High 0.52 - 1.25 mg/dL [facility] Work Phone: EGFR IF NonAfrican [place] 20.8 mL/min Abnormal >60 [facility] Work Phone: [...] Interpretation and review of laboratory results Abnormal [employer] Work Phone: Potassium [Moles/Vol] 3.9 mmol/L 3.5 - 5.1 mmol/L [facility] Work Phone: Protein [Mass/Vol] 7.1 g/dL 6.3 - 8.2 g/dL [facility] Work Phone: Sodium [Moles/Vol] 141 mmol/L 135 - 145 mmol/L [facility] Work Phone: Urea nitrogen [Mass/Vol] 39 mg/dL High 7 - 20 mg/d L [facility] Work Phone: ED Provider Noteon 1 ED [...] patient come from an ECF, SNF, Rehab, Half-Way or other Congregate setting: no (If yes [...] on phone: None Gets together: None Attends sabianist service: None Active member of club or [...] 114/75 97.3 (more content not included)... Normal [facility] Hemogramon 09-05-2020 Erythrocyte distribution width (RBC) [Ratio] 32.9 % High 11.5-14.5 [facility] Comment on above: Performed By: #### B NP3, TROPN, BMP3, HEMDF #### [facility] [address] [place] [address] Hematocrit (Bld) [Volume fraction] 34.6 % Low 40.0-52.0 [facility] Comment on above: Performed By: #### B NP3, TROPN, BMP3, HEMDF #### [facility] [address] [place] [address] Hemoglobin (Bld) [Mass/Vol] 10.8 g/dL Low 13.0-18.0 [facility] Comment on above: Performed By: #### B NP3, TROPN, BMP3, HEMDF #### [facility] [address] [place] [address] MCH (RBC) [Entitic mass] 23.7 pg Low 26.0-34.0 [facility] Comment on above: Performed By: #### B NP3, TROPN, BMP3, HEMDF #### [facility] [address] [place] [address] MCHC 31.1 % Low 32.0-36.0 [facility] Comment on above: Performed By: #### B NP3, TROPN, BMP3, HEMDF #### [facility] [address] [place] [address] MCV (RBC) [Entitic vol] 76.2 fL Low 80.0-98.0 [facility] Comment on above: Performed By: #### B NP3, TROPN, BMP3, HEMDF #### [facility] [address] [place] [address] Platelet mean volume (Bld) [Entitic vol] 8.5 fL Normal 7.4-10.4 [facility] Comment on above: Performed By: #### B NP3, TROPN, BMP3, HEMDF #### [facility] [address] [place] [address] Platelets (Bld) [#/Vol] 359 10*3/uL Normal 140-440 [facility] Comment on above: Performed By: #### B NP3, TROPN, BMP3, HEMDF #### [facility] [address] [place] [address] RBC (Bld) [#/Vol] 4.54 10*6/uL Normal 4.40-5.90 [facility] Comment on above: Performed By: #### B NP3, TROPN, BMP3, HEMDF #### [facility] [address] [place] [address] WBC (Bld) [#/Vol] 6.5 10*3/uL Normal 3.6-10.7 [facility] Comment on above: Performed By: #### B NP3, TROPN, BMP3, HEMDF #### [facility] [address] [place] [address] Hemogram (CBC)on 09-05-2020 Erythrocyte distribution width (RBC) [Ratio] 32.9 % High 11.5 - 14.5 % [facility] Work Phone: Hematocrit (Bld) [Volume fraction] 34.6 % Low 40 - 52 % [facility] Work Phone: Hemoglobin (Bld) [Mass/Vol] 10.8 g/dL Low 13 - 18 g/dL [facility] Work Phone: Interpretation and review of laboratory results Abnormal [facility] Work Phone: MCH (RBC) [Entitic mass] 23.7 pg Low 26 - 34 pg [facility] Work Phone: MCHC (RBC) [Mass/Vol] 31.1 % Low 32 - 36 % [facility] Work Phone: MCV (RBC) [Entitic vol] 76.2 fL Low 80 - 98 fL [facility] Work Phone: Platelet mean volume (Bld) [Entitic vol] 8.5 fL 7.4 - 10.4 fL [facility] Work Phone: Platelets (Bld) [#/Vol] 359 10*3/uL 140 - 440 10*3/uL [facility] Work Phone: RBC (Bld) [#/Vol] 4.54 10*6/uL 4.4 - 5.9 10*6/uL [facility] Work Phone: WBC (Bld) [#/Vol] 6.5 10*3/uL 3.6 - 10.7 10*3/uL [facility] Work Phone: Test Performed by [facility], [address] [place], [place] [address] [facility] Work Phone: Lipaseon 09-05-2020 Lipase [Catalytic activity/Vol] 117 U/L Normal 23-300 [facility] Comment on above: Performed By: #### B NP3, TROPN, BMP3, HEMDF #### [facility] [address] [place] [address] Lipase [Catalytic activity/Vol] 117 U/L 23 - 300 U/L [facility] Work Phone: Otheron 09-05-2020 Test Performed by [facility], [address] [place], [place] [address] [facility] Work Phone: US ABDOMEN LIMITED Specify o rgan? GALLBLADDERon 09-05-2020 Patient Name: MEGAN NASCIMENTO Ultrasound ACCESSION EXAM DATE/TIME PROCEDURE ORDERING PROVIDER [id number] 09/05/2020 22:05 EST US Abdomen Limited [id number] SANDOVAL CPT code 84559 Reason For Exam (US Abdomen Limited) RUQ [...] Time: 09/05/2020 10:46 [facility] Work Phone: [facility], [facility] - 09/05/2020 10:46 PM EST Patient Name: [id number] Ultrasound ACCESSION EXAM DATE/TIME PROCEDURE ORDERING PROVIDER [id number] 09/05/2020 22:05 EST US Abdomen Limited [id number] -Shamika GLASGOW CPT code 26374 Reason For Exam (US Abdomen Limited) RUQ [...] Ultrasound ACCESSION EXAM DATE/TIME PROCEDURE ORDERING PROVIDER [id number] 09/05/2020 22:05 EST US Abdomen Limited [id number] Shamika NAGY CPT code 60870 Reason For Exam (US Abdomen Limited) RUQ [...] Transcribed Date and Time: 09/05/2020 10:46 Normal [facility] [email or web address] [facility] Urinalysison 09-05-2020 Appearance (U) Clear Clear NA [employer] Work Phone: Comment on above: . Bacteria, UA Few Abnormal Negative /[HPF] [facility] Work Phone: Comment on above: . Bilirubin Urine Negative Negative mg/dL [facility] Work Phone: Comment on above: . Color (U) Dark-Yellow Abnormal Lt. Yellow NA [facility] Work Phone: Comment on above: . Glucose, Ur Normal Normal (<70) mg/dL [employer] Work Phone: Comment on above: . Hyaline Casts, UA 26-50 Abnormal Negative /[LPF] [facility] Work Phone: Comment on above: . Interpretation and review of laboratory results Abnormal [facility] Work Phone: Ketones Ql (U) Negative Negative mg/dL [facility] Work Phone: Comment on above: . LEUKOCYTES, UA Negative Negative Sp/uL [facility] Work Phone: Comment on above: . Mucous Threads Few Negative /[LPF] [facility] Work Phone: Comment on above: . Nitrite, Urine Negative Negative NA [facility] Work Phone: Comment on above: . Non-Squamous Epithelial <1 Abnormal Nega tive /[HPF] [employer] Work Phone: Comment on above: . Occult Blood,Urine Negative Negative mg/dL [facility] Work Phone: Comment on above: . pH (U) 5.0 [pH] [facility] Work Phone: Comment on above: . Protein (U) [Mass/Vol] 30 mg/dL Abnormal Negative [facility] Work Phone: Comment on above: . RBC (U) [#/Vol] 0-2 0 - 2 /[HPF] [facility] Work Phone: Comment on above: . Specific [place], Urine 1.018 [facility] Work Phone: Comment on above: . Squam Epithel, UA 0-2 3 - 5 /[HPF] [facility] Work Phone: Comment on above: . Urobilinogen, Urine 2 mg/dL Abnormal Normal (0-1) [facility] Work Phone: Comment on above: . WBC, UA 3-5 0 - 5 /[HPF] [facility] Work Phone: Comment on above: Confirmed by light m icroscopy. . Test Performed by [facility], [address] [place] [id number] [place] [address] Work Phone: Echo 2D Doppler Coloron 02-0 TRANSTHORACIC ECHOCARDIOGRAM PATIENT: Megan Nascimento STUDY DATE: 08/23/2020 : 1940 AGE: 80 HT/WT: 172.7 cm (68 85.7 kg in) (188.6 lb) GENDER: M BP: 103 / 48 LOCATION: [facility] PATIENT Outpatient [facility] STATUS: *ORDERING PHYSICIAN: * Ralph Roth MD *READING PHYSICIAN: * Zoë, *BACCARAT DEALER: * Shirin Sim RDCS,AE, PE, RVT INDICATIONS: [...] by Chiquis Camp 08/23/2020 17:30 Prior Signatures: [facility] Incoming Cardiology Results From [facility] - 08/23/2020 5:31 PM EST TRANSTHORACIC ECHOCARDIOGRAM PATIENT: Megan Nascimento STUDY DATE: 08/23/2020 : 1940 AGE: 80 HT/WT: 172.7 cm (68 85.7 kg in) (188.6 lb) GENDER: M BP: 103 / 48 LOCATION: [facility] PATIENT Outpatient [facility] STATUS: *ORDERING PHYSICIAN: * Ralph Roth MD *READING PHYSICIAN: * Zoë, *BACCARAT DEALER: * Shirin Sim RDCS,AE, PE, RVT INDICATIONS: [...] by Chiquis Camp 08/23/2020 17:30 Prior Signatures: [facility] [employer] [facility] Echo Complete w/wo Contrasto n 08-23-2020 Echo Complete w/wo Contrast Patient Name: MEGAN NASCIMENTO Ultrasound ACCESSION EXAM DATE/TIME PROCEDURE ORDERING PROVIDER [id number] 08/23/2020 15:09 EST Echo Complete w/wo RALPH ROTH Reason For Exam (Echo Complete w/wo Contrast) sob Report TRANSTHORACIC ECHOCARDIOGRAM PATIENT: Megan Nascimento STUDY DATE: 08/23/2020 : 1940 AGE: 80 HT/WT: 172.7 cm (68 85.7 kg in) (188.6 lb) GENDER: M BP: 103 / 48 LOCATION: [facility] PATIENT Outpatient [facility] STATUS: *ORDERING PHYSICIAN: * Ralph Roth MD *READING PHYSICIAN: * Zoë, *BACCARAT DEALER: * Shirin Sim RDCS,AE, PE, RVT INDICATIONS: [...] [address] St (more content not included)... Normal [facility] [email or web address] [facility] Basic Metabolic Panelon 12-0 Anion gap [Moles/Vol] 10 mmol/L [place], [place] Calcium [Mass/Vol] 8.9 mg/dL 8.4 - 10. 4 mg/dL [place] Chloride [Moles/Vol] 96 mmol/L Low 98 - 10 7 mmol/L [place] CO2 [Moles/Vol] 30 mmol/L 22 - 30 mmol/L [place] Creatinine [Mass/Vol] 1.51 mg/dL High 0.52 - 1.25 mg/dL [place] EGFR IF NonAfrican Samoan 42.7 mL/min Abnormal >60 [place] Comment on above: KDIGO guidelines pro [...] (S/P/Bld) [Vol rate/Area] 49.5 mL/min/{1.73_m2} Abnormal >60 [place] Glucose [Mass/Vol] 111 mg/dL High 70 - 100 mg/dL [place] Interpretation and review of laboratory results Abnormal [place] Potassium [Moles/Vol] 3.7 mmol/L 3.5 - 5.1 mmol/L [place] Sodium [Moles/Vol] 136 mmol/L 135 - 145 mmol/L [place] Urea nitrogen [Mass/Vol] 39 mg/dL High 7 - 20 mg/d L [place] Test Performed by [facility], [address] [place] [id number] [place], [place] CBCon 06-27-2020 Erythrocyte distribution width (RBC) [Ratio] 18.5 % High 11.5 - 14.5 % [place] Hematocrit (Bld) [Volume fraction] 31.1 % Low 40 - 52 % [place] Hemoglobin (Bld) [Mass/Vol] 9.6 g/dL Low 13 - 18 g/dL [place] Interpretation and review of laboratory results Abnormal [place] MCH (RBC) [Entitic mass] 23.2 pg Low 26 - 34 pg [place] MCHC (RBC) [Mass/Vol] 30.7 % Low 32 - 36 % [place] MCV (RBC) [Entitic vol] 75.4 fL Low 80 - 98 fL M [place], [place] Platelet mean volume (Bld) [Entitic vol] 8.1 fL 7.4 - 10.4 fL [place] Platelets (Bld) [#/Vol] 317 10*3/uL 140 - 440 10*3/uL [place] RBC (Bld) [#/Vol] 4.13 10*6/uL Low 4.4 - 5.9 10*6/uL [place] WBC (Bld) [#/Vol] 8.0 10*3/uL 3.6 - 10.7 10*3/uL [place] Test Performed by [address] [address] [place] Vital Signs Date Time Vital Sign Value Performing Clinician Facility 04-01-2025 16:00-0400 Diastolic blood pressure 81 mm[Hg] Dr. Rigoberto Durand MD Work Phone: [facility] 04-01-2025 16:00-0400 Heart rate 60 /min Dr. Rigoberto Durand MD Work Phone: [phone])[phone] [address] 04-01-2025 16:00-0400 SaO2% (BldA) [Mass fraction] 95 % Dr. Rigoberto Durand MD Work Phone: 5(503)[phone] [address] 04-01-2025 16:00-0400 Systolic blood pressure 128 mm[Hg] Dr. Rigoberto Durand MD Work Phone: [facility] 04-01-2025 15:53-0400 Body temperature 97.5 [degF] Dr. Rigoberto Durand MD Work Phone: 8(759)[phone] [address] 04-01-2025 15:53-0400 Respiratory rate 21 /min Dr. Rigoberto Durand MD Work Phone: 2(860)[phone] [address] 04-01-2025 12:34-0400 Body height 170.[address] Rigoberto Durand MD Work Phone: 1(510)[phone] [address] 04-01-2025 12:34-0400 Body mass index (BMI) [Ratio] 30.7 kg/m2 Dr. Rigoberto Durand MD Work Phone: 0(074)[phone] [place] [address] 04-01-2025 12:34-0400 Body weight 89.[address] Rigoberto Durand MD Work Phone: [facility] 03-03-2025 14:19-0400 Body height 170.2 cm Petra Peterson CNP Work Phone: [facility] 03-03-2025 14:19-0400 Body mass index (BMI) [Ratio] 28.66 kg/m2 Petra Renteria FORESTRY AND WILDLIFE MANAGER [employer] Work Phone: [facility] [email or web address] 03-03-2025 14:19-0400 Body weight 83.01 kg Petra Renteria [employer]ESTRY AND WILDLIFE MANAGER [employer] Work Phone: [facility] [email or web address] 03-03-2025 14:19-0400 Diastolic blood pressure 64 mm[Hg] Petra Renteria [employer] WILDLIFE MANAGER [employer] Work Phone: [facility] [email or web address] 03-03-2025 14:19-0400 Heart rate 60 /min Petra Renteria [employer]ESTRY AND WILDLIFE MANAGER [employer] Work Phone: [facility] [email or web address] 03-03-2025 14:19-0400 SaO2% (BldA) [Mass fraction] 100 % Petra Renteria [employer] AND WILDLIFE MANAGER [employer] Work Phone: [facility] [email or web address] 03-03-2025 14:19-0400 Systolic blood pressure 92 mm[Hg] Petra Renteria APRN - [employer] Work Phone: [facility] [email or web address] 02-15-2025 08:08-0400 Body temperature 96.3 [degF] Latricia Landa DO Work Phone: [facility] [email or web address] 02-15-2025 08:08-0400 Diastolic blood pressure 76 mm[Hg] Latricia Landa DO Work Phone: [facility] [email or web address] 02-15-2025 08:08-0400 Heart rate 83 /min Latricia Ladna DO Work Phone: [facility] [email or web address] 02-15-2025 08:08-0400 Respiratory rate 18 /min Latricia Landa DO Work Phone: [facility] [email or web address] 02-15-2025 08:08-0400 SaO2% (BldA) [Mass fraction] 97 % Latricia Landa DO Work Phone: [facility] [email or web address] 02-15-2025 08:08-0400 Systolic blood pressure 137 mm[Hg] Latricia Landa DO Work Phone: [facility] [email or web address] 02-12-2025 08:18-0400 Body height 170.2 cm Latricia Landa DO Work Phone: [facility] [email or web address] 02-10-2025 12:06-0400 Body mass index (BMI) [Ratio] 28.51 kg/m2 Latricia Landa DO Work Phone: [facility] [email or web address] 02-10-2025 12:06-0400 Body weight 82.56 kg Latricia Landa DO Work Phone: [facility] [email or web address] 02-01-2025 15:24-0400 Body temperature 97 [degF] Latricia Landa DO Work Phone: [facility] [email or web address] 02-01-2025 15:24-0400 Diastolic blood pressure 75 mm[Hg] Latricia Landa DO Work Phone: [facility] [email or web address] 02-01-2025 15:24-0400 Heart rate 79 /min Latricia Landa DO Work Phone: [facility] [email or web address] 02-01-2025 15:24-0400 Respiratory rate 18 /min Latricia Landa DO Work Phone: [facility] [email or web address] 02-01-2025 15:24-0400 SaO2% (BldA) [Mass fraction] 97 % Latricia Landa DO Work Phone: [facility] [email or web address] 02-01-2025 15:24-0400 Systolic blood pressure 122 mm[Hg] Latricia Landa DO Work Phone: [facility] [email or web address] 02-01-2025 02:16-0400 Body mass index (BMI) [Ratio] 29.23 kg/m2 Latricia Landa DO Work Phone: [facility] [email or web address] 02-01-2025 02:16-0400 Body weight 84.64 kg Latricia Landa DO Work Phone: [facility] [email or web address] 01-31-2025 11:14-0400 Body height 170.2 cm Latricia Landa DO Work Phone: [facility] [email or web address] 01-26-2025 15:46-0400 Body height 170.2 cm Ralph Roth MD Work Phone: [facility] 01-26-2025 15:46-0400 Body mass index (BMI) [Ratio] 30.48 kg/m2 Ralph Roth MD Work Phone: [facility] 01-26-2025 15:46-0400 Body weight 88.27 kg Ralph Roth MD Work Phone: [facility] 01-26-2025 15:46-0400 Diastolic blood pressure 80 mm[Hg] Ralph Roth MD Work Phone: [facility] 01-26-2025 15:46-0400 Heart rate 79 /min Ralph Roth MD Work Phone: [facility] 01-26-2025 15:46-0400 SaO2% (BldA) [Mass fraction] 100 % Ralph Roth MD Work Phone: [facility] 01-26-2025 15:46-0400 Systolic blood pressure 124 mm[Hg] Ralph Roth MD Work Phone: [facility] 12-12-2024 15:03-0400 Body temperature 98 [degF] Dr. Rigoberto Durand MD Work Phone: [facility] 12-12-2024 15:03-0400 Diastolic blood pressure 77 mm[Hg] Dr. Rigoberto Durand MD Work Phone: [facility] 12-12-2024 15:03-0400 Heart rate 71 /min Dr. Rigoberto Durand MD Work Phone: [facility] 12-12-2024 15:03-0400 Respiratory rate 19 /min Dr. Rigoberto Durand MD Work Phone: [facility] 12-12-2024 15:03-0400 SaO2% (BldA) [Mass fraction] 95 % Dr. Rigoberto Durand MD Work Phone: [facility] 12-12-2024 15:03-0400 Systolic blood pressure 138 mm[Hg] Dr. Rigoberto Durand MD Work Phone: [facility] 12-12-2024 10:32-0400 Body height 170.[address] Rigoberto Durand MD Work Phone: [facility] 09-22-2024 15:10-0500 Body height 170.2 cm Ralph Roth MD Work Phone: [facility] 09-22-2024 15:10-0500 Body mass index (BMI) [Ratio] 28.19 kg/m2 Ralph Roth MD Work Phone: [facility] 09-22-2024 15:10-0500 Body weight 81.65 kg Ralph Roth MD Work Phone: [facility] 09-22-2024 15:10-0500 Diastolic blood pressure 68 mm[Hg] Ralph Roth MD Work Phone: [facility] 09-22-2024 15:10-0500 Systolic blood pressure 136 mm[Hg] Ralph Roth MD Work Phone: [facility] 01-09-2024 11:03-0400 Body height 170.2 cm Petra Dexter FORESTRY AND WILDLIFE MANAGER [employer] Work Phone: [facility] [email or web address] 01-09-2024 11:03-0400 Body mass index (BMI) [Ratio] 28.04 kg/m2 Petra Dexter [employer]ESTR[employer] WILDLIFE MANAGER [employer] Work Phone: [facility] [email or web address] 01-09-2024 11:03-0400 Body weight 81.19 kg Petra Dexter [employer] WILDLIFE MANAGER [employer] Work Phone: [facility] [email or web address] 01-09-2024 11:03-0400 Diastolic blood pressure 78 mm[Hg] Petra Dexter [employer] WILDLIFE MANAGER [employer] Work Phone: [facility] [email or web address] 01-09-2024 11:03-0400 Heart rate 88 /min Petra Friedmanlak [employer]ESTRY AND WILDLIFE MANAGER [employer] Work Phone: [facility] [email or web address] 01-09-2024 11:03-0400 SaO2% (BldA) [Mass fraction] 97 % Petra Renteria [employer] AND WILDLIFE MANAGER [employer] Work Phone: [facility] 01-09-2024 11:03-0400 Systolic blood pressure 120 mm[Hg] Petra Renteria [employer] AND WILDLIFE MANAGER [employer] Work Phone: [facility] 11-27-2023 09:23-0400 Body temperature 97 [degF] [facility] 11-27-2023 09:23-0400 Diastolic blood pressure 59 mm[Hg] [facility] 11-27-2023 09:23-0400 Heart rate 66 /min [facility] 11-27-2023 09:23-0400 Respiratory rate 12 /min [facility] 11-27-2023 09:23-0400 SaO2% (BldA) [Mass fraction] 98 % [facility] 11-27-2023 09:23-0400 Systolic blood pressure 133 mm[Hg] [facility] 11-27-2023 04:20-0400 Body height 170.18 cm [facility] 11-27-2023 04:20-0400 Body mass index (BMI) [Ratio] 31.1 kg/m2 [facility] 11-27-2023 04:20-0400 Body weight 90.3 kg [facility] 03-12-2023 08:32-0400 Body height 170.2 cm Ralph Roth MD Work Phone: [facility] 03-12-2023 08:32-0400 Body mass index (BMI) [Ratio] 28.66 kg/m2 Ralph Roth MD Work Phone: [facility] 03-12-2023 08:32-0400 Body weight 83.01 kg Ralph Roth MD Work Phone: [facility] 03-12-2023 08:32-0400 Diastolic blood pressure 76 mm[Hg] Ralph Roth MD Work Phone: [facility] 03-12-2023 08:32-0400 Heart rate 77 /min Ralph Roth MD Work Phone: [facility] 03-12-2023 08:32-0400 Respiratory rate 16 /min Ralph Roth MD Work Phone: [facility] [email or web address] 03-12-2023 08:32-0400 SaO2% (BldA) [Mass fraction] 96 % Ralph Roth MD Work Phone: [facility] [email or web address] 03-12-2023 08:32-0400 Systolic blood pressure 120 mm[Hg] Ralph Roth MD Work Phone: [facility] [email or web address] 09-10-2022 09:10-0500 Body height 170.2 cm Petra Dexter FORESTRY AND WILDLIFE MANAGER - [employer] Work Phone: [email or web address] 09-10-2022 09:10-0500 Body mass index (BMI) [Ratio] 28.85 kg/m2 Petra Dexter FORESTRY [employer] WILDLIFE MANAGER [employer] Work Phone: [email or web address] 09-10-2022 09:10-0500 Body weight 83.55 kg Petra Dexter FORESTR[employer] WILDLIFE MANAGER [employer] Work Phone: [email or web address] 09-10-2022 09:10-0500 Diastolic blood pressure 52 mm[Hg] Petra Dexter [employer] WILDLIFE MANAGER [employer] Work Phone: [email or web address] 09-10-2022 09:10-0500 Heart rate 91 /min Petra Dexter FORE[employer] AND WILDLIFE MANAGER [employer] Work Phone: [email or web address] 09-10-2022 09:10-0500 Respiratory rate 16 /min Petra Dexter FORESTRY AND WILDLIFE MANAGER [employer] Work Phone: [email or web address] 09-10-2022 09:10-0500 SaO2% (BldA) [Mass fraction] 96 % Petra Dexter [employer] WILDLIFE MANAGER [employer] Work Phone: [email or web address] 09-10-2022 09:10-0500 Systolic blood pressure 102 mm[Hg] Petra Dexter FORESTRY AND WILDLIFE MANAGER [employer] Work Phone: [facility] [email or web address] 03-27-2022 13:36-0400 Body height 170.[address] Rigoberto Durand Work Phone: [facility] Work Phone: 03-27-2022 13:36-0400 Body mass index (BMI) [Ratio] 26.6 kg/m2 Dr. Rigoberto Durand Work Phone: [facility] Work Phone: 03-27-2022 13:36-0400 Body weight 77.[address] Rigoberto Durand Work Phone: [facility] Work Phone: 03-05-2022 11:55-0400 Diastolic blood pressure 62 mm[Hg] Dr. Rigoberto Durand Work Phone: [facility] Work Phone: 03-05-2022 11:55-0400 Heart rate 85 /min Dr. Rigoberto Durand Work Phone: [facility] Work Phone: 03-05-2022 11:55-0400 Respiratory rate 14 /min Dr. Rigoberto Durand Work Phone: [facility] Work Phone: 03-05-2022 11:55-0400 SaO2% (BldA) [Mass fraction] 98 % Dr. Rigoberto Durand Work Phone: [facility] Work Phone: 03-05-2022 11:55-0400 Systolic blood pressure 117 mm[Hg] Dr. Rigoberto Durand Work Phone: [facility] Work Phone: 08-22-2021 13:00-0500 Body temperature 97.8 [degF] Dr. Rigoberto Durand Work Phone: [facility] Work Phone: 08-22-2021 13:00-0500 Diastolic blood pressure 62 mm[Hg] Dr. Rigoberto Durand Work Phone: [facility] Work Phone: 08-22-2021 13:00-0500 Heart rate 76 /min Dr. Rigoberto Durand Work Phone: [facility] Work Phone: 08-22-2021 13:00-0500 Respiratory rate 20 /min Dr. Rigoberto Durand Work Phone: [facility] Work Phone: 08-22-2021 13:00-0500 SaO2% (BldA) [Mass fraction] 97 % Dr. Rigoberto Durand Work Phone: [facility] Work Phone: 08-22-2021 13:00-0500 Systolic blood pressure 120 mm[Hg] Dr. Rigoberto Durand Work Phone: [facility] Work Phone: 08-22-2021 09:02-0500 Body height 170.[address] Rigoberto Durand Work Phone: [facility] Work Phone: 08-22-2021 09:02-0500 Body weight 70.[address] Rigobetro Durand Work Phone: [facility] Work Phone: 08-21-2021 03:00-0500 Inhaled oxygen concentration 100 % Dr. Rigoberto Durand Work Phone: [facility] Work Phone: 08-20-2021 20:36-0500 Body mass index (BMI) [Ratio] 24.4 kg/m2 Dr. Rigoberto Durand Work Phone: [facility] Work Phone: 09-26-2020 07:04-0500 Body [...] BMI (Body Mass Index) 29.49 kg/m2 [facility] [place] 08-29-2020 14:51-0500 Body Temperature 97.2 [degF] [facility] [place] 08-29-2020 14:51-0500 Body weight 85.41 kg [facility] [place] 08-29-2020 14:51-0500 BP Diastolic 72 mm[Hg] Ralph [facility] , [place] 08-29-2020 14:51-0500 BP Systolic 115 mm[Hg] [facility] [place] 08-29-2020 14:51-0500 Height 170.2 cm Ralph [facility] , [place] 08-29-2020 14:51-0500 Pulse (Heart Rate) 98 /min Ralph Roth [facility], [place] 08-29-2020 14:51-0500 Respiratory Rate 18 /min [facility] [place] 08-22-2020 12:24-0500 BP Diastolic 78 mm[Hg] Ralph Roth [facility] , [place] 08-22-2020 12:24-0500 BP Systolic 122 mm[Hg] Ralph Roth [facility] , [place] 08-22-2020 12:24-0500 Pulse (Heart Rate) 86 /min Ralph Roth [facility], [place] 08-22-2020 10:53-0500 BMI (Body Mass Index) 28.98 kg/m2 Ralph Cabrera [facility], [place] 08-22-2020 10:53-0500 Body Temperature 97.11 [degF] Ralph Roth [facility], [place] 08-22-2020 10:53-0500 Body weight 83.92 kg Ralph Roth [facility] , [place] 08-22-2020 10:53-0500 Respiratory Rate 18 /min Ralph Roth [place], [place] Encounters Encounter Date Encounter Type Care Provider Facility Start: 04-01-2025 End: 04-01-2025 Emergency department patient visit Dr. Rigoberto Durand MD Work Phone: -Emergency Department Work Phone: Start: 03-07-2025 End: 03-07-2025 Refill Petra Renteria APRN [employer] Work Phone: [facility] Comment on above: Chronic HFrEF (heart failure with reduced ejection fraction) (HCC) Start: 03-03-2025 End: 03-03-2025 Office outpatient visit 25 minutes Petra Renteria APRN - [employer] Work Phone: [facility] Comment on above: Non-ischemic cardiom yopathy (CMS/HCC) (HCC) (Primary Dx); Acute HFrEF (heart failure with reduced ejection fraction) (HCC); ICD (implantable cardioverter-defibrillator), biventricular, in situ Start: 03-03-2025 End: 03-03-2025 ambulatory PETRA RENTERIA [facility] Start: 03-02-2025 End: 03-02-2025 ambulatory Jany Bonilla RN [facility] Start: 02-17-2025 End: 02-17-2025 amb[facility] Start: 02-10-2025 End: 02-15-2025 ambulatory GIBSON ROTH [facility] Start: 02-10-2025 End: 02-15-2025 Evaluation and management of inpatient Latricia Landa DO Work Phone: [facility] Medical Surgical Unit MSU 4S Comment on above: Cellulitis of lower extremity, unspecified laterality (Primary Dx); Acute HFrEF (heart failure with reduced ejection fraction) (HCC) Start: 02-04-2025 End: 02-04-2025 Telephone encounter Cindy Peterson CNP Work Phone: [facility] Comment on above: Other (HFdEF) Start: 01-28-2025 End: 01-28-2025 Telephone encounter Ralph Roth MD Work Phone: [facility] [employer] [facility] Start: 01-28-2025 End: 02-01-2025 Evaluation and management of inpatient Latricia Landa DO Work Phone: [facility] Cardiac Progressive Care Unit PCU 5W Comment on above: Acute systolic conge stive heart failure (HCC) (Primary Dx); Bilateral leg edema; Chronic kidney disease, unspecified CKD stage; AICD (automatic cardioverter/defibrillator) present Start: 01-26-2025 End: 01-26-2025 ambulatory RALPH ROTH [facility] Start: 01-26-2025 End: 01-26-2025 Office outpatient visit 25 minutes [facility] MD [facility] Comment on above: Primary hypertension (Primary Dx); Acute systolic heart failure (HCC); Acute on chronic clinical systolic heart failure (HCC) Start: 01-12-2025 End: 01-12-2025 ambulatory GIBSON [facility] Start: 12-12-2024 End: 12-12-2024 Emergency department patient visit Dr. Rigoberto Durand MD Work Phone: -Emergency Department Work Phone: Start: 12-08-2024 End: 12-08-2024 Refill Petra Renteria [employer] WILDLIFE MANAGER [employer] Work Phone: [facility] Comment on above: Acute HFrEF (heart f ailure with reduced ejection fraction) (HCC) Start: 10-06-2024 End: 10-06-2024 [facility] Start: 09-27-2024 End: 09-27-[address] Rigoberto Durand MD Work Phone: [facility] Work Phone: Start: 09-27-2024 End: 09-27-[address] Rigoberto Durand MD -Laboratory, [facility] Start: 09-27-2024 End: 09-27-2024 ambulatory Rigoberto Durand Facility:[facility] Start: 09-22-2024 End: 09-22-2024 Office outpatient visit 15 minutes Ralph Roth MD Work Phone: [facility] Comment on above: Chronic HFrEF (heart failure with reduced ejection fraction) (HCC) (Primary Dx) Start: 09-22-2024 End: 09-22-2024 ambulatory RALPH ROTH [facility] Start: 07-28-2024 End: 07-28-2024 Telephone encounter Di Hernández RN [facility] Start: 07-20-2024 End: 07-20-2024 Refmonica Roth MD Work Phone: [facility] Start: 06-15-2024 End: 06-16-2024 Refill Radha Delgado FORESTRY AND WILDLIFE MANAGER - [employer] Work Phone: [facility] Comment on above: Acute HFrEF (heart f ailure with reduced ejection fraction) ([facility]) Start: 05-26-2024 End: 05-26-2024 ambulatory GIBSONJACOB ROTH [facility] Start: 05-10-2024 Encounter for vanesa l adult medical examination without abnormal findings Rigoberto Durand [facility] Start: 04-16-2024 End: 04-16-2024 ambulatory [facility] Facility:[facility] Start: 03-19-2024 End: 04-21-2024 Telephone encounter Ralph Roth MD Work Phone: [facility] Comment on above: Med Management Start: 03-18-2024 End: 03-18-2024 Refill Petra Renteria FORESTRY AND WILDLIFE MANAGER - [employer] Work Phone: [facility] Comment on above: Chronic HFrEF (heart failure with reduced ejection fraction) ([facility]) Start: 01-09-2024 End: 01-09-2024 Office outpatient visit 25 minutes Petra Renteria FORESTRY AND WILDLIFE MANAGER [employer] Work Phone: [facility] Comment on above: Non-ischemic cardiom yopathy (CMS/HCC) ([facility]) (Primary Dx); Primary hypertension; Acute HFrEF (heart failure with reduced ejection fraction) ([facility]); ICD (implantable cardioverter-defibrillator), biventricular, in situ; Other iron deficiency anemia Start: 12-22-2023 Refill Ralph ravi MD Work Phone: [facility] Comment on above: Erectile dysfunction , unspecified erectile dysfunction type Start: 12-18-2023 Refill Lance martinez FORESTRY AND WILDLIFE MANAGER - [employer] Work Phone: [facility] Comment on above: Acute HFrEF (heart f ailure with reduced ejection fraction) ([facility]) Start: 11-27-2023 End: 11-27-2023 Emergency department patient visit [facility]-Emergency Department Work Phone: Start: 08-29-2023 End: 08-29-2023 ambulatory [facility] Work Phone: Start: 08-29-2023 End: 08-29-2023 Patient encounter procedure [facility] Start: 06-11-2023 Refill Ralph ravi MD Work Phone: [facility] Comment on above: Acute HFrEF (heart f ailure with reduced ejection fraction) (HCC) Start: 06-02-2023 End: 06-02-2023 ambulatory [facility] Work Phone: Start: 06-02-2023 End: 06-02-2023 Patient encounter procedure [facility] Start: 05-12-2023 Refill Brinda Bourne APRN.[employer] Work Phone: [facility] Comment on above: Refill Request Start: 03-12-2023 End: 03-12-2023 Office outpatient visit 25 minutes Ralph Roth MD Work Phone: [facility] Comment on above: Hyperlipidemia, unsp ecified hyperlipidemia type Start: 03-08-2023 Refill Brinda Bourne FORESTRY AND WILDLIFE MANAGER.[employer] Work Phone: [facility] Comment on above: Refill Request (Sucr alfate ) Start: 03-04-2023 End: 03-04-2023 [facility] Work Phone: Start: 03-04-2023 End: 03-04-2023 Patient encounter procedure [facility] Start: 09-10-2022 End: 09-10-2022 Office outpatient visit 25 minutes Petra Renteria FORESTRY AND WILDLIFE MANAGER [employer] Work Phone: [facility] Comment on above: Acute HFrEF (heart f ailure with reduced ejection fraction) (CMS/HCC) (HCC) (Primary Dx); Presence of cardiac resynchronization therapy defibrillator ([employer]END[employer]-D); Non-ischemic cardiomyopathy (CMS/HCC) (HCC) Start: 08-26-2022 End: 08-26-2022 [facility] Work Phone: Start: 08-26-2022 End: 08-26-2022 Patient encounter procedure [facility] Start: 08-21-2022 Telephone encounter Ralph lloyd MD Work Phone: [facility] Comment on above: Med Management Erectile dysfunction , unspecified erectile dysfunction type Start: 07-11-2022 Telephone encounter Ralph lloyd MD Work Phone: [facility] Comment on above: Med Management Start: 05-16-2022 End: 05-16-[address] Rigoberto Durand Work Phone: [facility] Work Phone: Start: 05-16-2022 End: 05-16-[address] Rigoberto Durand Work Phone: [facility] Start: 03-27-2022 End: 03-27-[address] Rigoberto Durand Work Phone: [facility] Start: 03-20-2022 End: 03-20-2022 Subsequent hospital visit by physician Ruddy Gates MD Work Phone: [facility] 1 [facility] Comment on above: Chronic systolic (co ngestive) heart failure (HCC); Chronic HFrEF (heart failure with reduced ejection fraction) (HCC) Start: 03-05-2022 End: 03-05-[address] Rigoberto Durand Work Phone: [facility]-MRI - [facility] Start: 02-18-2022 End: 02-18-[address] Rigoberto Durand Work Phone: [facility] Gastroenterology Start: 01-30-2022 End: 01-30-[address] Rigoberto Durand Work Phone: [facility]-Radiology, [facility] Start: 11-19-2021 End: 11-19-[address] Rigoberto Durand Work Phone: [facility] Start: 10-25-2021 End: 10-25-[address] Rigoberto Durand Work Phone: [facility] Start: 09-21-2021 End: 09-21-[address] Rigoberto Durand Work Phone: [facility]enter[facility] Start: 08-31-2021 End: 08-31-[address] Rigoberto Durand Work Phone: [facility] Start: 08-22-2021 Non-patient / Non-visit Dr. Dasia Durand Work Phone: [facility] Inpatient Physicians Start: 08-22-2021 Non-patient / Non-visit Dr. Dasia Durand Work Phone: [facility] Start: 08-22-2021 Non-patient / Non-visit Dr. Dasia Durand Work Phone: [facility] Start: 08-21-2021 Non-patient / Non-visit Dr. Dasia Durand Work Phone: [facility] Start: 08-21-2021 Non-patient / Non-visit Dr. Dasia Durand Work Phone: [facility] Start: 08-21-2021 Non-patient / Non-[facility] Start: 08-20-2021 Non-patient / Non-visit Dr. Dasia Durand Work Phone: [facility] Start: 08-20-2021 End: 08-22-2021 Evaluation and management of inpatient Dr. Rigoberto Durand Work Phone: [facility]-Intensive Care Unit Start: 08-09-[address] Rigoberto Durand Work Phone: [facility] Start: 07-23-2021 End: 07-23-[address] Rigoberto Durand Work Phone: [facility] Gastroenterology Start: 07-09-[address] Rigoberto Durand Work Phone: [facility] Start: 09-21-2020 End: 09-26-2020 Evaluation and management of inpatient Mauro Padgett Work Phone: [facility] H[facility] Start: 09-21-2020 End: 09-21-2020 Subsequent hospital visit by physician Cindy Recinos Work Phone: [address] Laboratory Comment on above: Acute on chronic HFr EF (heart failure with reduced ejection fraction) (HCC) Start: 09-11-2020 End: 09-15-2020 Evaluation and management of inpatient Ruddy Gates Work Phone: [facility] 3W TELEMETRY Comment on above: Acute on chronic HFr EF (heart failure with reduced ejection fraction) (HCC) (Primary Dx) Start: 09-05-2020 End: 09-05-2020 Emergency department patient visit Shamika Glasgow Work Phone: [facility] ED Comment on above: Abdominal pain, righ t upper quadrant (Primary Dx) Start: 08-29-2020 End: 08-29-2020 Subsequent hospital visit by physician Ralph Roth Work Phone: [facility] Comment on above: Iron deficiency anem ia, unspecified iron deficiency anemia type (Primary Dx); Iron malabsorption Start: 08-23-2020 End: 08-23-2020 Subsequent hospital visit by physician Ralph Roth Work Phone: [facility] ECHO Comment on above: Chronic systolic (co [...] visit by physician Ralph Roth Work Phone: [facility] Comment on above: Iron deficiency anem ia, unspecified iron deficiency anemia type (Primary Dx); Iron malabsorption Start: 06-27-2020 End: 06-27-2020 Subsequent hospital visit by physician Ralph Roth Work Phone: [facility] [address] [facility] Comment on above: Chronic [...] 02-01-2025 Comprehensive metabo lic panel Dena Curtis [employer] Work Phone: Start: 02-01-2025 Glucose quantitative blood xcpt reagent strip Dee Jones MD Work Phone: Start: 02-01-2025 Glucose quantitative blood xcpt reagent strip Dee Jones MD Work Phone: Start: 02-01-2025 Blood count complete automated Reeya Laura DO Work Phone: Start: 01-31-2025 Glucose quantitative blood xcpt reagent strip Marco Antonio Hall DO Work Phone: Start: 01-31-2025 End: 01-31-2025 Comprehensive metabolic panel Dena Curtis [employer] Work Phone: Start: 01-31-2025 End: 01-31-2025 Comprehensive [...] 09-26-2020 Blood count complete auto&auto difrntl wbc Dat [employer]. Work Phone: Start: 09-26-2020 RBC morphology findi [...] Phone: Start: 09-23-2020 Assay of magnesium Tram neyl Shamika Renteria Work Phone: Start: 09-23-2020 Basic metabolic pane l calcium total ePtra Renteria Work Phone: Start: 09-23-2020 Blood count complete auto&auto difrntl wbc Dat Angel Work Phone: Start: 09-23-2020 Hepatic function panel Petra Renteria Work Phone: Start: 09-23-2020 RBC morphology [...] Basic metabolic pane l calcium total Mauro Padgett Work Phone: Start: 09-21-2020 Blood count complete [...] Phone: Start: 09-14-2020 Blood count complete automated Mcakenzie Verorossi Work Phone: Start: 09-14-2020 Us retroperitoneal r eal time w/image complete Cindy Recinos Work Phone: Start: 09-14-2020 Assay of magnesium Sema an Verorossi Work Phone: Start: 09-14-2020 BASIC METABOLIC PANE L W/ REFLEX TO MG FOR LOW K Mackenzie Kobrossi Work Phone: Start: 09-14-2020 Blood count complete automated Mackenzie Verorossi Work Phone: Start: 09-13-2020 Assay of magnesium [...] et rgnt auto w/o microscopy J Tammi Glasogw Work Phone: Start: 09-05-2020 Ecg routine ecg w/le ast 12 lds w/i&r J Tammi Glasgow Work Phone: Start: 08-23-2020 Echo tthrc r-t 2d w/ wom-mode compl spec&colr d Ralph Roth Work Phone: Start: 06-27-2020 Basic metabolic pane l calcium total Ralph Roth Work Phone: Start: 06-27-2020 Blood count complete automated Ralph Roth Work Phone: Start: 03-16-2013 Colonoscopy Brinda Santoyo on [employer] Work Phone: Plan of Treatment Date Care Activity Detail Author Start: 08-24-2030 DTaP/Tdap/Td vaccine (2 - Td or Tdap) DTaP/Tdap/Td vaccine (2 - Td or Tdap) [facility] Start: 08-24-2030 DTaP/Tdap/Td vaccine (2 - Td) DTaP/Tdap/Td vaccine (2 - Td) [place] Start: 08-24-2030 DTaP/Tdap/Td Vaccines (2 - Td or Tdap) DTaP/Tdap/Td Vaccines (2 - Td or Tdap) [facility] Start: 03-03-2026 Creatinine measurement Creatinine Level [facility] Start: 03-03-2026 Diabetes: Estimated Glomerular Filtration Rate for Kidney Health Diabetes: Estimated Glomerular Filtration Rate for Kidney Health [facility] Start: 03-03-2026 Potassium measurement Potassium Level [facility] Start: 02-15-2026 Creatinine measurement Creatinine Level [facility] Start: 02-15-2026 Diabetes: Estimated Glomerular Filtration Rate for Kidney Health Diabetes: Estimated Glomerular Filtration Rate for Kidney Health [facility] Start: 02-15-2026 Potassium measurement Potassium Level [facility] Start: 02-01-2026 Creatinine measurement Creatinine Level [facility] Start: 02-01-2026 Diabetes: Estimated Glomerular Filtration Rate for Kidney Health Diabetes: Estimated Glomerular Filtration Rate for Kidney Health [facility] Start: 02-01-2026 Potassium measurement Potassium Level [facility] Start: 01-31-2026 Echocardiography Echocardiogram [facility] Start: 2025 End: 2025 Patient encounter procedure 2025 3:00 PM EST Office Visit [facility] [address] [facility] [address] [place] [phone] Petra Renteria, [employer]NAGER [employer] [address] [facility], [address] [place] [address] [facility] Start: 05-04-2025 End: 05-04-2025 Professional / ancillary services management 05/04/2025 2:30 PM EDT Ancillary Procedure [facility] [address] [facility] [address] [place] [id number] [facility] Start: 04-01-2025 [facility] Start: 03-21-2025 Influenza vaccination [facility] Start: 03-10-2025 End: 03-03-2026 CBC panel - Blood by Automated count CBC Lab Routine Non-ischemic cardiomyopathy (CMS/HCC) (HCC) Expected: 03/10/2025 (Approximate), Expires: 03/03/2026 [facility] Comment on above: Expected: 03/10/2025 (Approximate), Expi res: 03/03/2026 Start: 03-04-2025 End: 03-04-2025 Patient encounter procedure 03/04/2025 8:00 AM EDT Office Visit [facility] [address] [facility] [address] [place] [phone] Petra Renteria, [employer] WILDL[employer] MANAGER [employer] [address], [address] [place] [address] [facility] Start: 03-03-2025 End: 03-03-2026 Basic metabolic 1998 panel - Serum or Plasma Basic metabolic panel Lab Routine Non-ischemic cardiomyopathy (CMS/HCC) (HCC) Expected: 03/03/2025 (Approximate), Expires: 03/03/2026 [facility] Work Phone: Comment on above: Expected: 03/03/2025 (Approximate), Expi res: 03/03/2026 Start: 02-17-2025 End: 02-17-2025 Patient encounter procedure 02/17/2025 9:00 AM EDT Office Visit [facility] [address] [phone] Petra Renteria, [employer] WILDL[employer] MANAGER [employer] [address] [facility], [address] [id number] [facility] Start: 02-15-2025 End: 02-15-2025 Patient encounter procedure 02/15/2025 2:30 PM EDT Office Visit [facility] [address] [phone] Petra Renteria, [employer] WILDLIFE MANAGER [employer] [address] [facility], [address] [place] [phone] [facility] Start: 01-26-2025 End: 01-26-2026 CBC panel - Blood by Automated count CBC Lab Routine Primary hypertension Acute systolic heart failure (HCC) Expected: 01/26/2025 (Approximate), Expires: 01/26/2026 [facility] Comment on above: Expected: 01/26/2025 (Approximate), Expi res: 01/26/2026 Start: 01-26-2025 End: 01-26-2026 Comprehensive metabolic 1998 panel - Serum or Plasma Comprehensive metabolic panel Lab Routine Primary hypertension Acute systolic heart failure (HCC) Expected: 01/26/2025 (Approximate), Expires: 01/26/2026 [facility] Work Phone: Comment on above: Expected: 01/26/2025 (Approximate), Expi res: 01/26/2026 Start: 01-12-2025 End: 01-12-2025 Professional / ancillary services management 01/12/2025 3:00 PM EDT Ancillary Procedure [facility] [address] [place] [address] [facility] Start: 01-08-2025 Creatinine measurement Creatinine Level [facility] Start: 01-08-2025 Diabetes: Estimated Glomerular Filtration Rate for Kidney Health Diabetes: Estimated Glomerular Filtration Rate for Kidney Health [facility] Start: 01-08-2025 Potassium measurement Potassium Level [facility] Start: 12-12-2024 [facility] Start: 12-12-2024 [facility] Start: 10-06-2024 End: 10-06-2024 Professional / ancillary services management 10/06/2024 7:30 AM EDT Ancillary Procedure [facility] [address] [place] [address] [facility] Start: 09-22-2024 End: 09-22-2024 Patient encounter procedure 09/22/2024 3:00 PM EST Office Visit [facility] [address] [place] [address] Ralph Roth MD [address] [place] [id number] [facility] Start: 09-22-2024 End: 09-22-2024 Professional / ancillary services management 09/22/2024 2:30 PM EST Ancillary Procedure [facility] [address] [place] [address] [facility] Start: 07-28-2024 End: 07-28-2024 Patient encounter procedure [facility] Start: 07-28-2024 End: 07-28-2024 Professional / ancillary services management [facility] Start: 07-21-2024 Medicare Advantage Annual Wellness Visit Medicare Advantage Annual Wellness Visit [facility] Start: 05-26-2024 End: 05-26-2024 Professional / ancillary services management [facility] Start: 03-21-2024 COVID-19 Vaccine () COVID-19 Vaccine () [facility] Start: 03-21-2024 COVID-19 Vaccine () COVID-19 Vaccine () [facility] Start: 03-21-2024 Influenza vaccination [facility] Start: 02-11-2024 End: 02-11-2024 Professional / ancillary services management [facility] Start: 01-09-2024 End: 01-08-2025 Basic metabolic 1998 panel - Serum or Plasma Basic metabolic panel Lab Routine Non-ischemic cardiomyopathy (CMS/HCC) (HCC) Primary hypertension Expected: 01/09/2024 (Approximate), Expires: 01/08/2025 [facility] Work Phone: Comment on above: Expected: 01/09/2024 (Approximate), Expi res: 01/08/2025 Start: 01-09-2024 End: 01-08-2025 CBC panel - Blood by Automated count CBC Lab Routine Non-ischemic cardiomyopathy (CMS/HCC) (HCC) Primary hypertension Expected: 01/09/2024 (Approximate), Expires: 01/08/2025 [facility] Comment on above: Expected: 01/09/2024 (Approximate), Expi res: 01/08/2025 Start: 01-09-2024 End: 01-09-2024 Patient encounter procedure 01/09/2024 10:30 AM EDT Office Visit [facility] [address] [facility] [address] [place] [id number] Petra Renteria, [employer] WILDLIFE MANAGER - [employer] [address] [facility], [address] [place] [address] [facility] Start: 11-27-2023 Bacteria identified in Blood by Culture Blood Culture [facility] Start: 11-27-2023 Hospital admission, emergency, from emergency room, medical nature [facility] Start: 11-27-2023 Admission procedure [facility] Start: 11-27-2023 US scan of gallbladder Gallbladder [facility] Start: 11-27-2023 End: 11-27-2023 Blood culture [facility] Start: 09-10-2023 Creatinine measurement Creatinine Level [facility] Start: 09-10-2023 Potassium measurement Potassium Level [facility] Start: 06-25-2023 End: 06-25-2023 Professional / ancillary services management 06/25/2023 7:00 AM EST Ancillary Procedure [facility] [address] [place] [phone] [facility] Start: 06-05-2023 Creatinine measurement Creatinine Level [facility] Start: 06-05-2023 Potassium measurement Potassium Level [facility] Start: 03-21-2023 COVID-19 Vaccine () COVID-19 Vaccine () [facility] Start: 03-21-2023 Influenza vaccination [facility] Start: 03-12-2023 End: 03-12-2023 Patient encounter procedure [facility] Start: 03-12-2023 End: 03-12-2023 Professional / ancillary services management 03/12/2023 8:30 AM EDT Ancillary Procedure [facility] [address] [place] [address] [facility] Start: 11-20-2022 End: 11-20-2022 Professional / ancillary services management 11/20/2022 Ancillary Procedure Cardiology [facility] Start: 09-10-2022 End: 09-10-2023 Basic metabolic 1998 panel - Serum or Plasma Basic metabolic panel Lab Routine Acute HFrEF (heart failure with reduced ejection fraction) (CMS/HCC) (HCC) Expected: 09/10/2022 (Approximate), Expires: 09/10/2023 [facility] [employer] Work Phone: Comment on above: Expected: 09/10/2022 (Approximate), Expi res: 09/10/2023 Start: 09-10-2022 End: 09-10-2023 CBC panel - Blood by Automated count CBC Lab Routine Acute HFrEF (heart failure with reduced ejection fraction) (CMS/HCC) (HCC) Expected: 09/10/2022 (Approximate), Expires: 09/10/2023 [facility] [email or web address] Comment on above: Expected: 09/10/2022 (Approximate), Expi res: 09/10/2023 Start: 09-10-2022 End: 09-10-2022 Patient encounter procedure 09/10/2022 Office Visit Cardiology Petra Renteria, [employer] WILDLIFE MANAGER - [employer] [address] [facility], [address] [place], [place] [id number] [facility] Start: 07-21-2022 ADVANCE DIRECTIVE DISCUSSION ADVANCE DIRECTIVE DISCUSSION [facility] Start: 07-21-2022 DEPRESSION ASSESSMENT DEPRESSION ASSESSMENT [facility] Start: 05-14-2022 Lipid panel [facility] Start: 05-08-2022 End: 05-08-2022 Nursing evaluation of patient and report 05/08/2022 Nurse Only Cardiology Leslie Gloria RN [facility] Start: 03-21-2022 Influenza vaccination Flu vaccine (#1) [facility] Start: 09-26-2021 Creatinine measurement Creatinine monitoring [employer] Work Phone: Start: 09-26-2021 Potassium monitoring Potassium monitoring [employer] Work Phone: Start: 09-21-2021 Creatinine measurement Creatinine monitoring [employer] Work Phone: Start: 09-21-2021 Potassium monitoring Potassium monitoring [employer] Work Phone: Start: 09-15-2021 Creatinine measurement Creatinine monitoring [employer] Work Phone: Start: 09-15-2021 Potassium monitoring Potassium monitoring [employer] Work Phone: Start: 09-05-2021 Creatinine measurement Creatinine monitoring [employer] Work Phone: Start: 09-05-2021 Potassium monitoring [facility] Work Phone: Start: 08-01-2021 Creatinine measurement Creatinine monitoring [facility] [place] Start: 08-01-2021 Potassium monitoring Potassium monitoring [facility] [place] Start: 05-01-2021 Creatinine measurement Creatinine monitoring [facility] [place] Start: 05-01-2021 Potassium monitoring Potassium monitoring [facility] [place] Start: 04-21-2021 Medicare Annual Wellness (AWV) Medicare Annual Wellness (AWV) [facility] [email or web address] Start: 12-21-2020 End: 12-21-2020 Office Visit 12/21/2020 Office Visit Cardiology Ruddy Gates MD [address] [place] [address] [phone] [facility] Start: 10-24-2020 End: 10-24-2020 Office Visit 10/24/2020 Office Visit Cardiology Ralph Roth MD [address] [place], [place] [id number] [facility] Start: 10-05-2020 End: 10-05-2020 Office Visit 10/05/2020 Office Visit Cardiology Petra Renteria [employer]GER [employer] [address] [facility], [address] [place] [address] [phone] [facility] Start: 10-02-2020 End: 10-02-2020 Nurse Only 10/02/2020 Nurse Only Cardiology Leslie Gloria, JAIMIE [facility] Start: 09-21-2020 End: 09-21-2020 Office Visit 09/21/2020 Office Visit Cardiology Shawna Sethi APRN - NP [address] [facility] [address] [place] [address] [phone] [facility] Start: 09-21-2020 End: 09-15-2021 Basic metabolic 2000 panel Basic Metabolic Panel Lab Routine Acute on chronic HFrEF (heart failure with reduced ejection fraction) ([facility]) Expected: 09/21/2020, Expires: 09/15/2021 [facility] Work Phone: Comment on above: Expected: 09/21/2020, Expires: Start: 09-18-2020 End: 09-18-2020 Virtual Visit 09/18/2020 Virtual Visit Gastroenterology Sia Daniels [employer] [address] [place] [address] [phone] [facility] Start: 09-11-2020 End: 09-11-2020 Appointment 09/11/2020 Appointment Stress Lab Ruddy Gates MD [address] [place] [address] [phone] [facility] Start: 08-29-2020 End: 08-29-2020 Appointment 08/29/2020 Appointment Infusion Therapy [facility] Start: 08-24-2020 End: 08-24-2020 Office Visit 08/24/2020 Office Visit Cardiology Ruddy Gates MD [address] [place] [address] [phone] [facility] Start: 08-23-2020 End: 08-23-2020 Appointment 08/23/2020 Appointment Echocardiography Ralph Roth MD [address] [place] [address] [phone] [facility] Start: 08-01-2020 End: 08-01-2020 Office Visit 08/01/2020 Office Visit Cardiology Ralph Roth MD [address] [place] [address] [phone] [facility] Start: 03-21-2020 Influenza vaccination Flu vaccine (#1) [place] Start: 01-10-2019 Annual Wellness Visit (AWV) Annual Wellness Visit (AWV) [place] Start: 2014 RSV Immunization for Adults (1 - 1-dose 75+ series) RSV Immunization for Adults (1 - 1-dose 75+ series) [facility] Start: 03-16-2014 Colonoscopy COLONOSCOPY [facility] Start: 06-08-2013 Pneumococcal Vaccine: 65+ Years (2 - PCV) Pneumococcal Vaccine: 65+ Years (2 - PCV) [facility] Start: 2004 Pneumococcal Vaccine: 65+ (1 - PCV) Pneumococcal Vaccine: 65+ (1 - PCV) [facility] Start: 2004 PNEUMOCOCCAL: 65+ (1 - PCV) PNEUMOCOCCAL: 65+ (1 - PCV) [facility] Start: 1999 RSV Immunization aged 60 or older (1 - 1-dose 60+ series) RSV Immunization aged 60 or older (1 - 1-dose 60+ series) [facility] Start: 1999 RSV Vaccine (1 - 1-dose 60+ series) RSV Vaccine (1 - 1-dose 60+ series) [facility] Start: 1989 Shingles Vaccine (1 of 2) Shingles Vaccine (1 of 2) [place] Start: 1989 SHINGRIX VACCINE (1 of 2) SHINGRIX VACCINE (1 of 2) [facility] Start: 1984 DIABETES SCREEN DIABETES SCREEN [facility] Start: 1984 Diabetes Screening Diabetes Screening [facility] Start: 1958 DTaP/Tdap/Td vaccine (1 - Tdap) DTaP/Tdap/Td vaccine (1 - Tdap) [place] Start: 1958 Shingles vaccine (1 of 2) Shingles vaccine (1 of 2) [facility] Start: 1958 Urine microalbumin profile [facility] Start: 1958 Urine screening for protein Diabetes: Urine Protein Screening [facility] Start: 1958 Zoster Vaccines (1 of 2) Zoster Vaccines (1 of 2) [facility] Start: 1957 Diabetes: Urine Albumin-Creatinine Ratio for Kidney Health Diabetes: Urine Albumin-Creatinine Ratio for Kidney Health [facility] Start: 1955 COVID-19 Vaccine (1 of 2) COVID-19 Vaccine (1 of 2) [place] Start: 1951 Depression Screen Depression Screen [facility] Start: 1951 Depression Screening Depression Screening [facility] Start: 1949 Diabetic foot examination Diabetes: Foot Exam [facility] Start: 1949 Glaucoma screening Diabetes: Retinopathy Screening [facility] Start: 1949 Preventive dental service Diabetes: Dental Exam [facility] Start: 1940 COVID-19 VACCINE (#1) COVID-19 VACCINE (#1) [facility] Start: 1940 Annual Wellness Visit (AWV) Annual Wellness Visit (AWV) [facility] Start: 1940 Echocardiography Echocardiogram [facility] [email or web address] Start: 1940 Hemoglobin A1c measurement Diabetes: Hemoglobin A1C [facility] [email or web address] Start: 1940 Hepatitis B Vaccines (1 of 3 - 3-dose series) Hepatitis B Vaccines (1 of 3 - 3-dose series) [facility] [email or web address] Start: 1940 Medicare Annual Wellness (AWV) Medicare Annual Wellness (AWV) [facility] [email or web address] Start: 1940 Thyroid stimulating hormone measurement TSH Level [facility] [email or web address] Basic Metabolic Pane l w/ Reflex to MG [employer] Work Phone: Comment on above: Daily until discontinued starting 2020, 2 completed End: 09-30-2020 Brain Natriuretic Peptide Brain Natriuretic Peptide Lab Routine Every Third Day for 3 Occurrences starting 09/24/2020 until 09/30/2020, 1 completed [employer] Work Phone: Comment on above: Every Third Day for 3 Occurrences starti ng 09/24/2020 until 09/30/2020, 1 completed End: 09-11-2020 Catheterization and angiography procedure details panel Diagnostic Cardiac Information Technology Specialist Procedure Cardiac Cath Routine One Time for 1 Occurrences starting 09/11/2020 until 09/11/2020 [employer] Work Phone: Comment on above: One Time for 1 Occurrences starting 08/22 until 09/11/2020 CBC Auto Differential CBC Auto D ifferential Lab Routine Daily until discontinued starting 09/23/2020, 4 completed [employer] Work Phone: Comment on above: Daily until discontinued starting 2020, 4 completed EKG 12 Lead EKG 12 Lead ECG Routine 09/05/2020 7:19 PM EST [employer] Work Phone: End: 09-26-2020 Home O2 eval (desaturation screen) Home O2 eval (desaturation screen) Respiratory Care Routine One Time for 1 Occurrences starting 09/26/2020 until 09/26/2020 [employer] Phone: Comment on above: One Time for 1 Occurrences starting 03/2021 until 09/26/2020 End: 09-14-2020 Magnesium [Mass/Vol] Magnesium Lab Add-On One Time for 1 Occurrences starting 09/14/2020 until 09/14/2020 [facility] Work Phone: Comment on above: One Time for 1 Occurrences starting 08/22 until 09/14/2020 Oxygen therapy [[facility] Data Set] Initiate Oxygen Therapy Protocol Respiratory Care Routine Daily until discontinued starting 09/11/2020 [facility] Work Phone: Comment on above: Daily until discontinued starting 2020 Patient Education ED Diverticulitis [facility] Work Phone: Patient referral [facility] Work Phone: Procalcitonin [Mass/volume] in Serum or Plasma [facility] Immunizations Immunization Date Immunization Notes Care Provider [facility] 05-16-2022 influenza virus vaccine, unspecified formulation Ralph Roth MD Work Phone: [facility] [email or web address] 06-22-[address] Rigoberto Durand Work Phone: [facility] 11-10-2020 Covid (Moderna) Dr. Rigoberto shaver Work Phone: [facility] 10-13-2020 Covid (Moderna) Dr. Rigoberto shaver Work Phone: [facility] 08-24-2020 tetanus toxoid, redu fernando diphtheria toxoid, and acellular pertussis vaccine, adsorbed Ralph Roth [facility] Work Phone: Payers Date Payer Category Payer Self-pay [id number] 2024 Unknown [id number] 2024 Medicare HMO [employer] MEDICARE [id number] 2024 Private Health Insurance [id number] 2024 Self-pay [id number] 2021 Medicare supplementa l policy (as second payer) AARP [id number] 2021 Unknown AARP AARP xxxxxx [id number]-Present [address] [place] [address] Supplement [id number] 2015 Private Health Insurance [facility] [id number] 2004 Medicare [id number] 2004 Medicare [id number] Unknown [id number] Unknown [id number] Unknown [id number] Unknown [id number] Social History Date Type Detail Facility Start: 08-01-2020 End: 02-11-2025 Tobacco smoking status NHIS Former smoker [place] End: 11-08-1999 History of tobacco use Current smoker [place] Start: 08-01-2020 End: 02-15-2025 Cigarettes smoked current (pack per day) - Reported [facility] Start: 08-01-2020 End: 02-11-2025 Tobacco use and exposure Never used [place] Start: 08-01-2020 End: 02-11-2025 Alcohol intake Current drinker of alcohol (finding) [place] Start: 1940 Sex Assigned At Not on file M [place], [place] Start: 08-31-2022 End: 03-12-2023 Exposure to SARS-CoV-2 (event) Not sure [place] Start: 09-05-2020 Alcohol Comment occationally [employer] Work Phone: Start: 09-21-2020 Alcohol Comment occasional [employer] Work Phone: Start: 09-21-2021 End: 11-27-2023 Tobacco smoking status NHIS Unknown if ever smoked [facility] Start: 1940 Sex Assigned At Male [facility] End: 11-08-1999 History of tobacco use Cigarette Smoker [employer] Work Phone: Start: 12-19-2021 History SDOH Alcohol Comment occasional wine [employer] Work Phone: Start: 09-10-2022 End: 02-15-2025 Tobacco use panel [facility] Start: 06-08-2011 End: 04-01-2025 Tobacco smoking status NHIS Never smoked tobacco [facility] Work Phone: Start: 03-16-2013 Alcohol intake 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 No [facility] How often to you hav e a drink containing alcohol? Monthly or less [facility] How many standard drinks containing alcohol do you have on a typical day? 1 or 2 [facility] How often do you hav e 6 or more drinks on 1 occasion? Never [facility] History of tobacco use Passive smoker [facility] How many standard drinks containing alcohol do you have on a typical day? Patient does not drink [facility] The food that (I/we) bought just didn't last, and (I/we) didn't have money to get more. Never true [facility] Start: 02-11-2025 Tobacco Comment Patient states he quit smoking in 1999, no history of vaping or smokeless tobacco. Smoking cessation counseling no indicated. [facility] Medical Equipment Procedure Code Equipment Code Equipment [...] ST MATT/NGUYEN Q UADRA ASSURA MP DEFIBRILLATOR (VALET PARKING ATTENDANT-D) FDA Start: 09-11-2020 ST MATT/NGUEYN Q UADRA ASSURA MP DEFIBRILLATOR (VALET PARKING ATTENDANT-D) FDA Start: 09-11-2020 ST MATT/NGUYEN Q UADRA ASSURA MP DEFIBRILLATOR (VALET PARKING ATTENDANT-D) FDA Start: 09-11-2020 ST MATT/NGUYEN Q UADRA ASSURA MP DEFIBRILLATOR (VALET PARKING ATTENDANT-D) FDA Start: 09-11-2020 ST MATT/NGUYEN Q UADRA ASSURA MP DEFIBRILLATOR (VALET PARKING ATTENDANT-D) FDA Start: 09-11-2020 ST MATT/NGUYEN Q UADRA ASSURA MP DEFIBRILLATOR (VALET PARKING ATTENDANT-D) FDA Start: 09-11-2020 ST MATT/NGUYEN Q UADRA ASSURA MP DEFIBRILLATOR (VALET PARKING ATTENDANT-D) FDA Start: 09-11-2020 ST MATT/NGUYEN Q UADRA ASSURA MP DEFIBRILLATOR (VALET PARKING ATTENDANT-D) FDA Start: 09-11-2020 ST MATT/NGUYEN Q UADRA ASSURA MP DEFIBRILLATOR (VALET PARKING ATTENDANT-D) FDA Start: 09-11-2020 ST MATT/NGUYEN Q UADRA ASSURA MP DEFIBRILLATOR (VALET PARKING ATTENDANT-D) FDA Start: 09-11-2020 ST MATT/NGUYEN Q UADRA ASSURA MP DEFIBRILLATOR (VALET PARKING ATTENDANT-D) FDA Start: 09-11-2020 ST MATT/NGUYEN Q UADRA ASSURA MP DEFIBRILLATOR (VALET PARKING ATTENDANT-D) FDA Start: 09-11-2020 [facility] 3369-4 0q Quadra Assura Mp [id number] Start: 09-10-2020 [employer] 7122 D urata [id number] Start: 09-10-2020 ST MATT/NGUYEN Q UADRA ASSURA MP DEFIBRILLATOR (VALET PARKING ATTENDANT-D) FDA Start: 09-11-2020 ST MATT/NGUYEN Q UADRA ASSURA MP DEFIBRILLATOR (VALET PARKING ATTENDANT-D) FDA Start: 09-11-2020 ST MATT/NGUYEN Q UADRA ASSURA MP DEFIBRILLATOR (VALET PARKING ATTENDANT-D) FDA Start: 09-11-2020 ST MATT/NGUYEN Q UADRA ASSURA MP DEFIBRILLATOR (VALET PARKING ATTENDANT-D) FDA Start: 09-11-2020 ST MATT/NGUYEN Q UADRA ASSURA MP DEFIBRILLATOR (VALET PARKING ATTENDANT-D) FDA Start: 09-11-2020 ST MATT/NGUYEN Q UADRA ASSURA MP DEFIBRILLATOR (VALET PARKING ATTENDANT-D) FDA Start: 09-11-2020 ST MATT/NGUYEN Q UADRA ASSURA MP DEFIBRILLATOR (VALET PARKING ATTENDANT-D) FDA Start: 09-11-2020 ST MATT/NGUYEN Q UADRA ASSURA MP DEFIBRILLATOR (VALET PARKING ATTENDANT-D) FDA Start: 09-11-2020 ST MATT/NGUYEN Q UADRA ASSURA MP DEFIBRILLATOR (VALET PARKING ATTENDANT-D) FDA Start: 09-11-2020 ST MATT/NGUYEN Q UADRA ASSURA MP DEFIBRILLATOR (VALET PARKING ATTENDANT-D) FDA Start: 09-11-2020 ST MATT/NGUYEN Q UADRA ASSURA MP DEFIBRILLATOR (VALET PARKING ATTENDANT-D) FDA Start: 09-11-2020 ST MATT/NGUYEN Q UADRA ASSURA MP DEFIBRILLATOR (VALET PARKING ATTENDANT-D) FDA Start: 09-11-2020 ST MATT/NGUYEN Q UADRA ASSURA MP DEFIBRILLATOR (VALET PARKING ATTENDANT-D) FDA Start: 09-11-2020 ST MATT/NGUYEN Q UADRA ASSURA MP DEFIBRILLATOR (VALET PARKING ATTENDANT-D) FDA Start: 09-11-2020 ST MATT/NGUYEN Q UADRA ASSURA MP DEFIBRILLATOR (VALET PARKING ATTENDANT-D) FDA Start: 09-11-2020 ST MATT/NGUYEN Q UADRA ASSURA MP DEFIBRILLATOR (VALET PARKING ATTENDANT-D) FDA Start: 09-11-2020 [employer] 1457q Quartet [id number] Start: 09-10-2020 [employer] [id number] Tendril Sts [id number] Start: 09-10-2020 ST MATT/NGUYEN Q UADRA ASSURA MP DEFIBRILLATOR (VALET PARKING ATTENDANT-D) FDA Start: 09-11-2020 ST MATT/NGUYEN Q UADRA ASSURA MP DEFIBRILLATOR (VALET PARKING ATTENDANT-D) FDA Start: 09-11-2020 ST MATT/NGUYEN Q UADRA ASSURA MP DEFIBRILLATOR (VALET PARKING ATTENDANT-D) FDA Start: 09-11-2020 ST MATT/NGUYEN Q UADRA ASSURA MP DEFIBRILLATOR (VALET PARKING ATTENDANT-D) FDA Start: 09-11-2020 ST MATT/NGUYEN Q UADRA ASSURA MP DEFIBRILLATOR (VALET PARKING ATTENDANT-D) FDA Start: 09-11-2020 ST MATT/NGUYEN Q UADRA ASSURA MP DEFIBRILLATOR (VALET PARKING ATTENDANT-D) FDA Start: 09-11-2020 ST MATT/NGUYEN Q UADRA ASSURA MP DEFIBRILLATOR (VALET PARKING ATTENDANT-D) FDA Start: 09-11-2020 ST MATT/NGUYEN Q UADRA ASSURA MP DEFIBRILLATOR (VALET PARKING ATTENDANT-D) FDA Start: 09-11-2020 ST MATT/NGUYEN Q UADRA ASSURA MP DEFIBRILLATOR (VALET PARKING ATTENDANT-D) FDA Start: 09-11-2020 ST MATT/NGUYEN Q UADRA ASSURA MP DEFIBRILLATOR (VALET PARKING ATTENDANT-D) FDA Start: 09-11-2020 ST MATT/NGUYEN Q UADRA ASSURA MP DEFIBRILLATOR (VALET PARKING ATTENDANT-D) FDA Start: 09-11-2020 ST MATT/NGUYEN Q UADRA ASSURA MP DEFIBRILLATOR (VALET PARKING ATTENDANT-D) FDA Start: 09-11-2020 Functional Status Date Assessment Result Facility 02-15-2025 Are you deaf, or do you have serious difficulty hearing Yes 02/15/2025 3:03 PM EDT Micah Devries, JAIMIE Yes [facility] 02-15-2025 Are you blind, or do you have serious difficulty seeing, even when wearing glasses No 02/15/2025 3:03 PM EDT Micah Devries, JAIMIE No [facility] 02-15-2025 Do you have serious difficulty walking or climbing stairs Yes 02/15/2025 3:03 PM EDT Micah Devries, JAIMIE Yes [facility] 02-15-2025 Do you have difficul ty dressing or bathing No 02/15/2025 3:03 PM EDT Micah Devries, JAIMIE No [facility] 02-15-2025 Because of a physica l, mental, or emotional condition, do you have difficulty doing errands alone such as visiting a physician's office or shopping Yes 02/15/2025 3:03 PM EDT Micah Devries, JAIMIE Yes [facility] 02-10-2025 Total score [AUDIT-C] 0 02/11/20 25 6:44 PM EDT Katie Hernández RN [facility] 08-22-2021 Functional status Dangle Feet;Chair [facility] Work Phone: [facility] Mental Status Date Assessment Result Facility 02-15-2025 Because of a physica l, mental, or emotional condition, do you have serious difficulty concentrating, remembering, or making decisions No 02/15/2025 3:03 PM EDT Micah Devries, JAIMIE No [facility] 11-27-2023 Cognitive function Level Of Cons ciousness Awake;Alert;Appropriate [facility] Work Phone: 08-22-2021 Cognitive function Voice/Name [facility] Work Phone: Clinical Notes 09-26-2020 to 04-01-2025 Note Date & Type Note Facility 04-01-2025 Discharge summary [facility] 04-01-2025 Radiology Diagnostic study note [facility] Imaging Services [address] [place] [address] CT Chest, Abd, Pel w/Contrast MR#: [id number] Acct: [id number] Name: MEGAN NASCIMENTO Rep #: [id number] : 1940 M 84 From: Can Gerber MD PCP: Dr. Rigoberto Durand MD Status: REG E R Study:CT Chest, Abd, Pel w/Contrast Date of E xam: 04/01/25 Exam# [id number] Ordering Dr: Larissa Romero DO PROCEDURE: CT [...] of the liver. Sigmoid diverticulosis. Reading Location: [id number] CC: Dr. Rigoberto Durand MD; Dr. Dax Romero DO ~ Paint Dipper: Signed [facility] 04-01-2025 Discharge summary Note Date/Time April 01, 2025 3:55pm [facility] Records Department [address] [place] [address] Emergency Department Summary 04/01/25 MR#: [id number] Acct: [id number] Name: MEGAN NASCIMENTO Rep #:[id number] : [...] simply lost 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 He states that over the last month he has had approximately 4 falls and states that ever since he had been diagnosed with diverticulitis. He does live alone. [facility] Medical History Chronic pain of toe [...] 04/10 Unknown History tablet,extended release 24 hr vkppwzejuhvl-vmv-ijxsf acid-vit 1 tab PO DAILY not on [...] (Auto) 66.1 Lymph % (Auto) 18.1 L Hudson % (Auto) 10.6 H Eos % (Auto) [...] CHRONIC CHANGES. NO ACUTE FINDINGS. Reading Location: [id number] Cervical Spine CT 04/01/25 12:45 IMPRESSION: Multilevel disc space narrowing and degeneration with the multilevel neural foraminal stenosis and facet joint osteoarthritis. Reading Location: [id number] Chest/Abdomen/Pelvis CT 04/01/25 12:45 IMPRESSION: Bilateral pleural effusions right greater than left with bibasilar atelectasis. Ascites. Stable bilateral renal cysts more prominent on the left side. Fatty infiltration of the liver. Sigmoid diverticulosis. Reading Location: [facility] Discharge Plan Triage Chief Complaint: Fall ED [...] printed off for your records. Print Language: Georgian Disposition Disposition: Home, Self Care What to do if you have Problems For any increased pain, shortness of breath, bleeding, nausea or vomiting, chestpain, or any unexpected problems, contact your Primary Care Provider. Call [facility] ([phone]) or report to the closest Emergency Room. Call 911 if necessary. 04/01/25 9242 <Electronically signed by Dax Romero DO> Cosigner Signature (if applicable): CC: Dr. Rigoberto Durand MD ~ Signed [facility] Work Phone: [phone] Radiology Diagnostic study note [facility] Imaging Services [address] [place] [address] [id number] Spine Cervical without Contras MR#: [id number] Acct: [id number] Name: MEGAN NASCIMENTO Rep #: [id number] : 1940 M 84 From: Can Gerber MD PCP: Dr. Rigoberto Durand MD Status: REG E R Study:Spine Cervical without Contras Date of Exam: 04/01/25 Exam# [id number] Ordering Dr: Larissa Romero DO PROCEDURE: SPINE [...] Durand MD; Dr. Dax Romero DO ~ Paint Dipper: Signed [facility]09-12-2025 Radiology Diagnostic study note [facility] Imaging Services [address] [place] [address] Brain/Head without Contrast MR#: [id number] Acct: [id number] Name: MEGAN NASCIMENTO Rep #: [id number] : 1940 M 84 From: Can Gerber MD PCP: Dr. Rigoberto Durand MD Status: REG E R Study:Brain/Head without Contrast Date of Exa m: 04/01/25 Exam# [id number] Ordering Dr: Larissa Romero DO PROCEDURE: BRAIN/HEAD [...] Durand MD; Dr. Dax Romero DO ~ Paint Dipper: Signed [facility]08-20-2025 Note03/09/25 CHW Transitions Outreach in [...] were you homeless or living in a fpc (including now)? N Transportation Needs In the [...] than 3 How often do you attend pentecostalism or sabianist services? Pt Declined Do you belong to any clubs or organizations such as pentecostalism groups, unions, fraternal or athletic groups, or [...] In the past 12 months has the [employer], [employer], [employer], or [employer] threatened to shut off services in your home? No Health Literacy How often do you need to have someone help you when you read instructions, pamphlets, or other written material from your doctor or pharmacy? Patient declines to respond --- -Feeling very good. -[facility] PT/OT was supposed to be out a day or so ago but hasn't come. -Weight is good, down to 177 lb. Reports on leg swelling or SOB. -Aware of upcoming [facility] appointments. -Taking all medications as prescribed. -Does not need any financial, transportation, or food assistance, he's doing just fine. -Community health worker assistance is not needed at this time. Transitions Follow-up: -CHW avail for follow up calls. -RN continue to follow. -#3 transition outreach call complete. [facility] upcoming appointments: -05/04 Cardiology -06/03 Cardiology JANKI Tian [phone]08-14-2025 History of Present illness Narrative* Petra Renteria, CHLOE - PEARLER - 03/03/2025 2:30 PM EDT Images from the original note were not included. [facility] Cardiology Office Note DATE of SERVICE: 03/03/25 [...] defibrillator placement. He was recently admitted to [facility] 01/28/2025-02/01/2025 and treated for heart failure exacerbation, [...] is important to call the office. 2. VALET PARKING ATTENDANT D-monitored regularly by the device clinic 3. [...] incontact with Megan once available. Petra Renteria FORESTRY AND WILDLIFE MANAGER/PEARLER [1] Past Medical History: Diagnosis Date Acute HFrEF (heart failure with reduced ejection fraction) ([facility]) 09/22/2020 Bladder cancer (HCC) CHF (congestive heart failure) (HCC) Chronic HFrEF (heart failure with reduced ejection fraction) ([facility]) 09/21/2020 Chronic kidney disease DM (diabetes mellitus) (HCC) DM (diabetes mellitus) (HCC) DVT (deep venous thrombosis) (HCC) ED (erectile dysfunction) Follicular non-Hodgkin's lymphoma (HCC) GERD (gastroesophageal reflux disease) GERD (gastroesophageal reflux disease) HTN (hypertension) HTN (hypertension) Hyperlipidemia Left bundle branch block 09/11/2020 Non-ischemic cardiomyopathy (CMS/HCC) ([facility]) Presence of cardiac resynchronization therapy defibrillator (VALET PARKING ATTENDANT-D) 01/17/2022 PUD (peptic ulcer disease) Pulmonary embolism (HCC) Pulmonary fibrosis (HCC) Rosacea Stage 3b chronic kidney disease ([facility]) 09/21/2020 Tachycardia [2] Past Surgical History: Procedure [...] 200 tablet, Rfl: 1 documented in this [facility]08-13-2025 History of Present illness Narrative* Jany Bonilla [...] to see (Everton Renteria CNP) tomorrow.) Was [facility] initiated if ordered? Yes (MIRI-/PT) Does [...] this patient been identified for ongoing CM/SW/Health agile scrum coach needs? Yes (Will route to CHWJamila, to complete SDOH and follow up with patient next week.) Spoke with patient. Re-introduced myself and my role on [facility]'s transitional team. He reports that the [...] was thrown off this morning since the [facility] nurse was out. He denies any [...] looking?Any s/s of cellulitis?). documented in this [facility]07-31-2025 History of Present illness Narrative* Jany Bonilla RN - 02/17/2025 1:44 PM EDT 02/17/25 1332 Transitions Post-Discharge Call - Initial Reviewed patients discharge instructions? Yes (AVS from hospital discharge reviewed.) Was patient able to bead picker new prescriptions? Yes Medication reconciliation complete? Partially [...] HHC ordered? Yes If yes, which agency? [facility] Was HHC initiated if ordered? Yes (Patient [...] this patient been identified for ongoing CM/SW/Health agile scrum coach needs? To Be Determined At Next Outreach [...] listed incorrectly in Epic. PCP updated in [facility]. Patient reports that he sees Dr. [...] he see/schedule with cardiology/PCP?). documented in this [facility]07-29-2025 NoteStart PACC Note Home Health Referral Educated patient and son on Home Care and services available. Patient offered choice of available HHC and agreeable to SN, PT services with [facility] at Home - Home Care. Care Types: [...] is noted as yes - consider a SUPERVISOR MARBLE evaluation once the patient returns home. START PATIENT REGISTRATION INFORMATION Order Information Order Signing Physician: Lisa Muniz, DO Service Ordered RN ?: Yes Service Ordered PT ?: Yes Service Ordered OT ?: No Service Ordered ST ?: No Service Ordered SUPERVISOR MARBLE?:No Service Ordered DATA WAREHOUSE SPECIALIST?: No Following Physician: Dr Rigoberto Durand Following Physician Overseeing Physician: Dr Rigoberto Durand (Required for Residents only) Agreeable to Follow? Yes Date/Time of Call 02/15/25 4:05 PM, Spoke with: GONZALO Care Coordination Same Day SOC?: No Primary Care Physician: Dr Rigoberto Durand Primary Care Physician Primary Care Physician Address: [address] [place] [address] Visit Instructions: N/A Service Discharge Location Type: Home with Home Care Service Facility Name: N/A Service Floor Facility: N/A Service Room No: N/A Demographics Patient Last Name: Azam Patient First Name: Megan Language/Communication Barrier: NA Service Address: [address] [place] [address] Service City: [facility] ST: [place] Service ZIP: [address] [facility] (home) Other phone numbers: Telephone Information: Emergency Contact: Extended Emergency Contact Information Primary Emergency Contact: AzamZuleyka Mobile Relation: Program Assistant Secondary Emergency Contact: Negrito Nascimentosa Relation: Child [...] GONZALO Discharge Date: 02/15/25 Referral Source-PACC: (Hospital/Unit): [facility] / [id number] B End PACC [facility]07-29-2025 Patient's home Note* Home Care - Maria Antonia Mcmullen RN - 02/15/2025 4:05 PM EDT Start PACC Note Home Health Referral Educated patient and son on Home Care and services available. Patient offered choice of available HHC and agreeable to SN, PT services with [facility] at [facility] - Home Care. Care Types: [...] is noted as yes - consider a SUPERVISOR MARBLE evaluation once the patient returns home. START PATIENT REGISTRATION INFORMATION Order Information Order Signing Physician: Lisa Muniz, DO Service Ordered RN ?: Yes Service Ordered PT ?: Yes Service Ordered OT ?: No Service Ordered ST ?: No Service Ordered SUPERVISOR MARBLE?:No Service Ordered DATA WAREHOUSE SPECIALIST?: No Following Physician: Dr Rigoberto Durand Following Physician Overseeing Physician: Dr Rigoberto Durand (Required for Residents only) Agreeable to Follow? Yes Date/Time of Call 02/15/25 4:05 PM, Spoke with: GONZALO Care Coordination Same Day SOC?: No Primary Care Physician: Dr Rigoberto Durand Primary Care Physician Primary Care Physician Address: [address] [place], [place] [id number] Visit Instructions: N/A Service Discharge Location Type: Home with Home Care Service Facility Name: N/A Service Floor Facility: N/A Service Room No: N/A Demographics Patient Last Name: Azam Patient First Name: Megan Language/Communication Barrier: RON Service Address: [address] Service City: [facility] ST: [place] Service ZIP: [address] Service (home) Other phone numbers: Telephone Information: Emergency Contact: Extended Emergency Contact Information Primary Emergency Contact: Zuleyka Nascimento Mobile Relation: Program Assistant Secondary Emergency Contact: Shaylee Nascmiento Relation: Child Admission Information Admit Date: 02/10/2025 Patient status at discharge: Observation Admitting Diagnosis: Cellulitis [L03.90] Cellulitis of lower extremity, unspecified laterality [L03.119] Caregiver Information Caregiver First Name: Zuleyka Caregiver Last Name: Azam Caregiver Relationship to Patient CG Caregiver Caregiver Notes: N/A [employer] List No END PATIENT REGISTRATION INFORMATION Pt [...] GONZALO Discharge Date: 02/15/25 Referral Source-PACC: (Hospital/Unit): [facility] / B4-454/B4-454 B [id number] Misc[facility] Notes* Home Care - Maria Antonia Mcmullen RN - 02/15/2025 4:05 PM EDT Start PACC Note Home Health Referral Educated patient and son on Home Care and services available. Patient offered choice of available HHC and agreeable to SN, PT services with [facility]. Care Types: [...] is noted as yes - consider a SUPERVISOR MARBLE evaluation once the patient returns home. START PATIENT REGISTRATION INFORMATION Order Information Order Signing Physician: Lisa Muniz, DO Service Ordered RN ?: Yes Service Ordered PT ?: Yes Service Ordered OT ?: No Service Ordered ST ?: No Service Ordered SUPERVISOR MARBLE?:No Service Ordered DATA WAREHOUSE SPECIALIST?: No Following Physician: Dr Rigoberto Durand Following Physician Overseeing Physician: Dr Rigoberto Durand (Required for Residents only) Agreeable to Follow? Yes Date/Time of Call 02/15/25 4:05 PM, Spoke with: GONZALO Care Coordination Same Day SOC?: No Primary Care Physician: Dr Rigoberto Durand Primary Care Physician Primary Care Physician Address: [address] [place] [id number] Visit Instructions: N/A Service Discharge Location Type: Home with Home Care Service Facility Name: N/A Service Floor Facility: N/A Service Room No: N/A Demographics Patient Last Name: Azam Patient First Name: Megan Language/Communication Barrier: NA Service Address: [address] [place] [address] Apt Service City: [facility] ST: [place] Service ZIP: [address] Service (home) Other phone numbers: Telephone Information: Emergency Contact: Extended Emergency Contact Information Primary Emergency Contact: AzamZuleyka Mobile Relation: Program Assistant Secondary Emergency Contact: AzamShaylee Relation: Child Admission Information Admit Date: 02/10/2025 Patient status at discharge: Observation Admitting Diagnosis: Cellulitis [L03.90] Cellulitis of lower extremity, unspecified laterality [L03.119] Caregiver Information Caregiver First Name: Zuleyka Caregiver Last Name: Azam Caregiver Relationship to Patient CG Caregiver Caregiver Notes: N/A [employer] List No END PATIENT REGISTRATION INFORMATION Pt [...] GONZALO Discharge Date: 02/15/25 Referral Source-PACC: (Hospital/Unit): [facility] / B4-454/B4-454 B End PACC Note * Care Coordination - NATALYA Petersen - 02/14/2025 4:08 PM EDT SRIRAM met with pt at [facility] to complete the 30 day Readmission questionnaire. SW asked for pt's consent and pt agreed. Pt was cooperative and answered all questions. SRIRAM will email questionnaire at the end of the week to [email or web address] Free * Care Coordination - Jewels Ortiz RN [...] 04/04. Barriers/Today we still Wait: Clinical stability, Emergency Technician recommendations (ID), Symptomatic control Length of Stay [...] home, possible need for therapy to eval. [facility] to follow. Barriers/Today we still Wait: IV ATBX, ID final recs. Clinical stability. Length of Stay (Days): 1 GMLOS: No GMLOS Documented * Home Care - Maria Antonia Mcmullen RN - 02/11/2025 8:39 AM EDT Patient is currently active with [facility]. The patients current certification period will on 04/04/2025. The patient is currently receiving SN, PT services through the agency. Hospitality Team Member to continue to follow. documented in this [facility]07-29-2025 Nurse Note* Micah Devries RN - 02/15/2025 3:25 PM EDT Pt ok to discharge home per , vs wnl. Pt understood discharge instructions. Son to transport pt home. IV removed prior to pt leaving hospital. Pt received meds to bed. [id number] Nurse Note* Micah Devries RN - 02/15/2025 [...] Back, Elbows, Occiput and ears all intact. [place] and blanchable tissues noted to coccyx. Instructed [...] applied to both feet. documented in this [facility]07-29-2025 NoteHospitalist Discharge Summary Megan Nascimento : 1940 [...] Your Medications These medications were sent to [facility] [address] [place] [address] Hours: Friday to Friday 10 am to 6 pm amoxicillin-clavulanate 875-125 MG tablet Recommended Follow-up: PCP outpatient in 1-2 weeks. @READMISSIONRISK@ Complexity of Follow up: [] Moderate Complexity: follow up within 7-14 calendar days (75979) [x] Severe Complexity: follow up within 7 calendar days (16411) Follow up Testing, Pending results or Referrals at Transitional Care Visit: [x] yes [] no Instructions to MA: Please call patient on day after discharge (must document patient contacted within 2 business days of discharge). Follow up questions for MA: 1. Did you get medications filled and taking them as instructed from discharge? 2. Are you following your d (more content not included)...[facility]07-29-2025 Hospital course Narrative* Lisa Muniz DO [...] Your Medications These medications were sent to [facility] [address] [place] [id number] Hours: Friday to Friday 10 am to 6 pm amoxicillin-clavulanate 875-125 MG tablet Recommended Follow-up: PCP outpatient in 1-2 weeks. @READMISSIONRISK@ Complexity of Follow up: [] Moderate Complexity: follow up within 7-14 calendar days (56201) [x] Severe Complexity: follow up within 7 calendar days (17728) Follow up Testing, Pending results or Referrals [...] DO Division of Hospitalist Medicine Inpatient Medical Services/[facility] 02/15/2025, 2:51 PM Total time Spent on Discharge: 32 minutes documented in this [facility]07-28-2025 Progress note* Care Coordination - NATALYA Petersen - 02/14/2025 4:08 PM EDT SRIRAM met with pt at [facility] to complete the 30 day Readmission questionnaire. SW asked for pt's consent and pt agreed. Pt was cooperative and answered all questions. SRIRAM will email questionnaire at the end of the week to [email or web address] [facility] [id number] NoteCare Management Progress Note Short Medical why still here: Patient remains on 4S today for BLE cellulitis. IV ATBX coverage continued. Complaints of continued lower extremity pain/erythema. Pain control prn. CHF, diuresis continued po. ID following. Monitoring labs/lytes. VSS, on RA. Planned Discharge Disposition: Home Health Services, active with [facility] through 04/04. Barriers/Today we still Wait: Clinical stability, Emergency Technician recommendations (ID), Symptomatic control Length of Stay (Days): 4 GMLOS: 3.1 [facility]07-28-2025 Progress note* Care Coordination - Jewels Ortiz [...] 04/04. Barriers/Today we still Wait: Clinical stability, Emergency Technician recommendations (ID), Symptomatic control Length of Stay (Days): 4 GMLOS: 3.1 [facility] [id number] [facility] - Infectious Diseases Attending Progress Note [...] Compression hose. Podiatry in outpt for nail care.[facility]07-28-2025 History of Present illness Narrative* Mannie Samuel MD - 02/14/2025 11:14 AM EDT [facility] - Infectious Diseases Attending Progress Note Subjective: [...] were not included. Hospitalist Progress Note 02/14/2025 [phone]: Please page me ([phone]) for patient care issues. [phone]: Please page IMS night Hospitalist for any issues. Subjective: Admit Date: 02/10/2025 PCP: Gibson Roth (Inactive) Room#: L7-459/J4-566 B Interval History: Patient is sitting on the bed, lower extremity pain improving. Denies any chest pain shortness of breath or palpitations. Adult diet Regular; No Added Salt (3-4 gm); 5 carb choices (75 gm/meal) @[id number]@ 24HR INTAKE/OUTPUT: Intake/Output Summary (Last 24 hours) [...] ejection fraction of 41% on echocardiogram 01/31/2025-s/p VALET PARKING ATTENDANT-D Follicular non-Hodgkin's lymphoma. Hypothyroidism. Bladder cancer Gastroesophageal [...] MD Division of Hospitalist Medicine Inpatient Medical Services/[facility] PAGER: [phone] [1] Past Medical History: Diagnosis Date Acute HFrEF (heart failure with reduced ejection fraction) ([facility]) 09/22/2020 Bladder cancer (HCC) CHF (congestive heart failure) ([facility]) Chronic HFrEF (heart failure with reduced ejection fraction) ([facility]) 09/21/2020 Chronic kidney disease DM (diabetes mellitus) (HCC) DM (diabetes mellitus) (HCC) DVT (deep venous thrombosis) (HCC) ED (erectile dysfunction) Follicular non-Hodgkin's lymphoma (HCC) GERD (gastroesophageal reflux disease) GERD (gastroesophageal reflux disease) HTN (hypertension) HTN (hypertension) Hyperlipidemia Left bundle branch block 09/11/2020 Non-ischemic cardiomyopathy (CMS/HCC) (HCC) Presence of cardiac resynchronization therapy defibrillator (VALET PARKING ATTENDANT-D) 01/17/2022 PUD (peptic ulcer disease) Pulmonary embolism [...] note were not included. Hospitalist Progress Note 02/13/[id number]: Please page me ([phone]) for patient care issues. [phone]: Please page IMS night Hospitalist for any issues. Subjective: Admit Date: 02/10/2025 PCP: Gibson Roth (Inactive) Room#: B4-454/B4454 B Interval History: Patient is lying on the bed, complaining of pain in the lower extremities Denies any chest pain shortness of breath or palpitations No other significant overnight issues. Adult diet Regular; No Added Salt (3-4 gm); 5 carb choices (75 gm/meal) @[id number]@ 24HR INTAKE/OUTPUT: Intake/Output Summary (Last 24 hours) [...] ejection fraction of 41% on echocardiogram 01/31/2025-s/p VALET PARKING ATTENDANT-D Follicular non-Hodgkin's lymphoma. Hypothyroidism. Bladder cancer Gastroesophageal [...] MD Division of Hospitalist Medicine Inpatient Medical Services/[facility] PAGER: [phone] [1] Past Medical History: Diagnosis Date Acute HFrEF (heart failure with reduced ejection fraction) ([facility]) 09/22/2020 Bladder cancer (HCC) CHF (congestive heart [...] (HCC) Presence of cardiac resynchronization therapy defibrillator (VALET PARKING ATTENDANT-D) 01/17/2022 PUD (peptic ulcer disease) Pulmonary embolism [...] Unable to assess Fluid Accumulation: Severe Extremities Extracorporeal Technician Strength: Not Performed Nutrition Assessment: 84 year old man with PMHx: DMII, CKD stage IIIb, CHF(EF rate ~12% 01/30/25), DVT, bladder cancer, HTN, HLD, PUD. Recent admit 01/28-02/01/25 to [facility] with volume overload and CHF Exacerbation. +scrotal and lower extremity edema for three weeks PVC MONITOR. Treated with IV Lasix and transitioned to 40 mG Torsemide prior to discharge. On day of discharge with weight of 186.6#, and he was discharged home in improved condition. He currently presents to [facility] with worsening swelling, redness, and pain in bilaterallower extremities- presumed cellulitis. Noted weight of 182.4# on evening of 02/09/25. Significant labs on admit: Gap(17), Creatinine(1.94), AST(39), bilirubin(1.8),BNP(>46385). Negative venous duplex imaging. ID consulted and following with plans to transition form IV cefetpime to PO antibiotics. Pleasant and interactive, resting in bed at time of assessment with bed scale weight of 80.7 kg or177.9# obtained. Noted patient ate ~75% breakfast tray (observed by this RDN). Cites appetite is okay , +diarrhea and early satiety. Estimates eating two meals daily PVC MONITOR. While he has used ONS in thepast- declined a this time due to loose stooling. Requested A brownie and milk, liberlized diet. Estimated Daily Nutrient Needs: Energy Requirements Based On: Kcal/kg Weight Used for Energy Requirements: [place] Weight for Energy Calculation (kg): 67 kg Total Energy Requirements (kcals/day): 4495-7109 (25-30 kcal/kg IBW) Weight Used for Protein Requirements: [place] Weight in Kg Used for Protein Requirements: [...] 01/26/25;186.6# 02/01/25) % Weight Change (Calculated): -4.7 [place] Body Weight (lbs) (Calculated): 148 lbs [place] Body Weight (Kg) (Calculated): 67 kg % [place] Body Weight (Calculated): 120.2 % BMI (kg/m2) (Calculated): 27.9 Weight Adjustment For: No Adjustment BMI Categories: Overweight (BMI 25.0-29.9) Nutrition Diagnosis: Altered nutrition-related lab values related to cardiac dysfunction as evidenced by localized or generalized fluid accumulation, lab values Nutrition Interventions: Nutrition Education/Counseling: Education not indicated Coordination of Nutrition Care: Continue to monitor while inpatient Plan of Care discussed with: patient and RIVER RAFTING GUIDE Goals: Previous Goal Met: Progressing toward Goal(s) Goals: PO intake 50% or greater Nutrition Monitoring and Evaluation: Behavioral-Environmental Outcomes: None Identified Food/Nutrient Intake Outcomes: Food and Nutrient Intake Physical Signs/Symptoms Outcomes: Biochemical Data, Chewing or Swallowing, Diarrhea, Nutrition Focused Physical Findings, Skin, Weight, Meal Time Behavior, Hemodynamic Status, Fluid Status or Edema Discharge Planning: Continue current diet Pari Morales RDN, LDN, Contact: *[phone] * Melvin Mei MD - 02/12/2025 10:20 AM EDT Images from the original note were not included. Hospitalist Progress Note 02/12/20256990798-3637: Please page me ([phone]) for patient care issues. [phone]: Please page IMS night Hospitalist for any issues. Subjective: Admit Date: 02/10/2025 PCP: Gibson Roth (Inactive) Room#: B4-039/B4-987 B Interval History: Patient is lying on the bed, complaining of pain in the lower extremities Denies any chest pain shortness of breath or palpitations No other significant overnight issues. Adult diet Regular; 4 carb choices (60 gm/meal); Low Fat/Low Chol/High Fiber/2 gm Na @[id number]@ 24HR INTAKE/OUTPUT: Intake/Output Summary (Last 24 hours) [...] ejection fraction of 41% on echocardiogram 01/31/2025-s/p VALET PARKING ATTENDANT-D Follicular non-Hodgkin's lymphoma. Hypothyroidism. Bladder cancer Gastroesophageal [...] MD Division of Hospitalist Medicine Inpatient Medical Services/[facility] PAGER: [phone] [1] Past Medical History: Diagnosis Date Acute HFrEF (heart failure with reduced ejection fraction) ([facility]) 09/22/2020 Bladder cancer ([facility]) CHF (congestive heart failure) ([facility]) Chronic HFrEF (heart failure with reduced ejection fraction) ([facility]) 09/21/2020 Chronic kidney disease DM (diabetes mellitus) (HCC) DM (diabetes mellitus) (HCC) DVT (deep venous thrombosis) ([facility]) ED (erectile dysfunction) Follicular non-Hodgkin's lymphoma (HCC) GERD (gastroesophageal reflux disease) GERD (gastroesophageal reflux disease) HTN (hypertension) HTN (hypertension) Hyperlipidemia Left bundle branch block 09/11/2020 Non-ischemic cardiomyopathy (CMS/HCC) ([facility]) Presence of cardiac resynchronization therapy defibrillator (VALET PARKING ATTENDANT-D) 01/17/2022 PUD (peptic ulcer disease) Pulmonary embolism (HCC) Pulmonary fibrosis ([facility]) Rosacea Stage 3b chronic kidney disease ([facility]) 09/21/2020 Tachycardia [2] [3] B complex-vitamin C-folic [...] note were not included. Hospitalist Progress Note 02/11/[id number]: Please page me ([phone]) for patient care issues. [phone]: Please page [facility] night Hospitalist for any issues. Subjective: Admit Date: 02/10/2025 PCP: Gibson Roth (Inactive) Room#: Q1-388/L5-063 B Interval History: Patient is lying on the bed, complaining of pain in the lower extremities Denies any chest pain shortness of breath or palpitations No other significant overnight issues. Adult diet Regular; 4 carb choices (60 gm/meal); Low Fat/Low Chol/High Fiber/2 gm Na @[id number]@ 24HR INTAKE/OUTPUT: Intake/Output Summary (Last 24 hours) [...] ejection fraction of 41% on echocardiogram 01/31/2025-s/p VALET PARKING ATTENDANT-D Follicular non-Hodgkin's lymphoma. Hypothyroidism. Bladder cancer Gastroesophageal [...] MD Division of Hospitalist Medicine Inpatient Medical Services/[facility] P[facility]ER: [phone] [1] Past Medical History: Diagnosis Date Acute [...] (HCC) Presence of cardiac resynchronization therapy defibrillator (VALET PARKING ATTENDANT-D) 01/17/2022 PUD (peptic ulcer disease) Pulmonary embolism [...] from the original note were not included. [facility] - Infectious Diseases Attending Progress [...] HFrEF (heart failure with reduced ejection fraction) ([facility]) 09/22/2020 Bladder cancer (HCC) CHF (congestive heart failure) (HCC) Chronic HFrEF (heart failure with reduced ejection fraction) ([facility]) 09/21/2020 Chronic kidney disease DM (diabetes mellitus) (HCC) DM (diabetes mellitus) (HCC) DVT (deep venous thrombosis) ([facility]) ED (erectile dysfunction) Follicular non-Hodgkin's lymphoma (HCC) GERD (gastroesophageal reflux disease) GERD (gastroesophageal reflux disease) HTN (hypertension) HTN (hypertension) Hyperlipidemia Left bundle branch block 09/11/2020 Non-ischemic cardiomyopathy (CMS/HCC) ([facility]) Presence of cardiac resynchronization therapy defibrillator (VALET PARKING ATTENDANT-D) 01/17/2022 PUD (peptic ulcer disease) Pulmonary embolism ([facility]) Pulmonary fibrosis ([facility]) Rosacea Stage 3b chronic kidney disease ([facility]) 09/21/2020 Tachycardia [2] Past Surgical History: Procedure [...] 50 mL IVPB Mini-Bag Plus 2,000 mg [id number] Moises Adan MD Stopped at 02/11/25 0937 [...] High Blood Pressure Mother documented in this [facility]07-28-2025 NoteHospitalist Progress Note 02/14/2025 [phone]: Please page wv ([phone]) for patient care issues. [phone]: Please page [facility] night Hospitalist for any issues. Subjective: Admit Date: 02/10/2025 PCP: Gibson Roth (Inactive) Room#: P6-101/L8-273 B Interval History: Patient is sitting on the bed, lower extremity pain improving. Denies any chest pain shortness of breath or palpitations. Adult diet Regular; No Added Salt (3-4 gm); 5 carb choices (75 gm/meal) @[id number]@ 24HR INTAKE/OUTPUT: Intake/Output Summary (Last 24 hours) [...] ejection fraction of 41% on echocardiogram 01/31/2025-s/p VALET PARKING ATTENDANT-D Follicular non-Hodgkin's lymphoma. Hypothyroidism. Bladder cancer Gastroesophageal [...] MD Division of Hospitalist Medicine Inpatient Medical Services/[facility] PAGER: [phone] [1] Past Medical History: Diagnosis Date Acute HFrEF (heart failure with reduced ejection fraction) ([facility]) 09/22/2020 Bladder cancer (HCC) CHF (congestive heart [...] branch block 09/11/2020 No (more content not included)...[facility]07-28-2025 Nurse Note* Lavonne Grace RN - 02/14/2025 8:45 AM EDT Wound Care consulted for Pressure Injury Prevention. Pt's Simon score= 18 on 02/14 Pt's pressure points assessed. Pt turned independently in the bed for posterior assessment. Pt's Heels, Buttocks/coccyx, Back, Elbows, Occiput and ears all intact. [place] and blanchable tissues noted to coccyx. Instructed [...] any questions or concerns. Lavonne Grace RN [facility] [id number] NoteHospitalist Progress Note 02/13/2025 [phone]: Please page me ([phone]) for patient care issues. [phone]: Please page [facility] night Hospitalist for any issues. Subjective: Admit Date: 02/10/2025 PCP: Gibson Roth (Inactive) Room#: T3-138/B7-496 B Interval History: Patient is lying on the bed, complaining of pain in the lower extremities Denies any chest pain shortness of breath or palpitations No other significant overnight issues. Adult diet Regular; No Added Salt (3-4 gm); 5 carb choices (75 gm/meal) @[id number]@ 24HR INTAKE/OUTPUT: Intake/Output Summary (Last 24 hours) [...] ejection fraction of 41% on echocardiogram 01/31/2025-s/p VALET PARKING ATTENDANT-D Follicular non-Hodgkin's lymphoma. Hypothyroidism. Bladder cancer Gastroesophageal [...] MD Division of Hospitalist Medicine Inpatient Medical Services/[facility] PAGER: [phone] [1] Past Medical History: Diagnosis Date Acute HFrEF (heart failure with reduced ejection fraction) ([facility]) 09/22/2020 Bladder cancer (HCC) CHF (congestive heart [...] cardiomyopathy (CMS/HCC) (HCC) Prese (more content not included)...[facility]07-26-2025 Note Hospitalist Progress Note 02/12/20256996011-9863: Please page me ([phone]) for patient care issues. [phone]: Please page I[facility] night Hospitalist for any issues. Subjective: Admit Date: 02/10/2025 PCP: Gibson Roth (Inactive) Room#: B4-454/B4454 B Interval History: Patient is lying on the bed, complaining of pain in the lower extremities Denies any chest pain shortness of breath or palpitations No other significant overnight issues. Adult diet Regular; 4 carb choices (60 gm/meal); Low Fat/Low Chol/High Fiber/2 gm Na @[id number]@ 24HR INTAKE/OUTPUT: Intake/Output Summary (Last 24 hours) [...] ejection fraction of 41% on echocardiogram 01/31/2025-s/p VALET PARKING ATTENDANT-D Follicular non-Hodgkin's lymphoma. Hypothyroidism. Bladder cancer Gastroesophageal [...] MD Division of Hospitalist Medicine Inpatient Medical Services/[facility] PAGER: [phone] [1] Past Medical History: Diagnosis Date Acute [...] Presence of cardiac resynchronizatio (more content not included)...[facility]07-25-2025 Nurse Note* Carmen Kraft RN - 02/11/2025 7:45 PM EDT ROLO wrap applied to both feet. [facility] [id number] NoteHospitalist Progress Note 02/11/2025 [phone]: Please page me ([phone]) for patient care issues. [phone]: Please page [facility] night Hospitalist for any issues. Subjective: Admit Date: 02/10/2025 PCP: Gibson Roth (Inactive) Room#: I8-231/W2-492 B Interval History: Patient is lying on the bed, complaining of pain in the lower extremities Denies any chest pain shortness of breath or palpitations No other significant overnight issues. Adult diet Regular; 4 carb choices (60 gm/meal); Low Fat/Low Chol/High Fiber/2 gm Na @[id number]@ 24HR INTAKE/OUTPUT: Intake/Output Summary (Last 24 hours) [...] ejection fraction of 41% on echocardiogram 01/31/2025-s/p VALET PARKING ATTENDANT-D Follicular non-Hodgkin's lymphoma. Hypothyroidism. Bladder cancer Gastroesophageal [...] MD Division of Hospitalist Medicine Inpatient Medical Services/[facility] PAGER: [phone] [1] Past Medical History: Diagnosis Date Acute HFrEF (heart failure with reduced ejection fraction) ([facility]) 09/22/2020 Bladder cancer (HCC) CHF (congestive heart failure) (HCC) Chronic HFrEF (heart failure with reduced ejection fraction) ([facility]) 09/21/2020 Chronic kidney disease DM (diabetes mellitus) (HCC) DM (diabetes mellitus) (HCC) DVT (deep venous thrombosis) (HCC) ED (erectile dysfunction) Follicular non-Hodgkin's lymphoma (HCC) GERD (gastroesophageal reflux disease) GERD (gastroesophageal reflux disease) HTN (hypertension) HTN (hypertension) Hyperlipidemia Left bundle branch block 09/11/2020 Non-ischemic cardiomyopathy (CMS/HCC) (HCC) Presence of cardiac resynchronization therapy defibrillator (VALET PARKING ATTENDANT-D) 01/17/2022 PUD (peptic ulcer disease) Pulmonary embolism (HCC) Pulmonary fibrosis (HCC) Rosacea Stage 3b chronic kidney di (more content not included)...[facility] 02-11-2025 NoteCare Management Progress Note Short Medical why still here: Patient remains on 4S today for BLE cellulitis, IV ATBX through the weekend. CHF, diuresis continued. ID consulted and seen. Wound following. Monitoring labs/lytes. No indications for therapy at this time. Planned Discharge Disposition: From home, possible need for therapy to eval. [facility] to follow. Barriers/Today we still Wait: IV ATBX, ID final recs. Clinical stability. Length of Stay (Days): 1 GMLOS: No GMLOS Documented [facility]07-25-2025 Progress note* Care Coordination - Jewels Ortiz [...] home, possible need for therapy to eval. [facility] to follow. Barriers/Today we still Wait: IV ATBX, ID final recs. Clinical stability. Length of Stay (Days): 1 GMLOS: No GMLOS Documented [id number] [facility] Discharge instructions* Discharge Instr - MICHELE* [...] Primary Emergency Contact: Zuleyka Nascimento Mobile Relation: Program Assistant Secondary Emergency Contact: Shaylee Nascimento Relation: Child [...] (HCC) Presence of cardiac resynchronization therapy defibrillator (VALET PARKING ATTENDANT-D) Acute systolic congestive heart failure (HCC) Cellulitis [...] (182 lb) Mental Status: {MICHELE Patient Mental Status:94540} IV Access: {MICHELE IV Access:11328} Nursing Mobility/ADLs: Walking {SUDHAKAR ADL:81264::Independent} Transfer {SUDHAKAR ADL:25064::Independent} Bathing {SUDHAKAR ADL:00813::Independent} Dressing {SUDHAKAR ADL:::Independent} Toileting {SUDHAKAR ADL:::Independent} Feeding {SUDHAKAR ADL:::Independent} Gravity Meter Observer {SUDHAKAR ADL:::Independent} Med Delivery {yes/no:48208} Wound Care Documentation and Therapy: Elimination: Continence: Bowel: {yes/no:09952} Bladder: {yes/no:26286} Urinary Catheter: {MICHELE Urinary Catheter:04876} Colostomy/Ileostomy/Ileal Conduit: {YES / NO:} Date of Last BM: Intake/Output Summary (Last 24 hours) at 02/11/2025 1356 Last data filed at 02/11/2025 0840 Gross per 24 hour Intake 240 ml Output 300 ml Net -60 ml I/O last 3 completed shifts: In: 50 (0.6 mL/kg) [IV Piggyback:50] Out: - (0 mL/kg) Weight: 82.6 kg Safety Concerns: {MICHELE Safety Concerns:98070} Impairments/Disabilities: {MICHELE Impairments/Disabilities:08674} Nutrition Therapy: Current Nutrition Therapy: {MICHELE Diet List:93135} Routes of Feeding: {routes of feedin} Liquids: {liquid consistency:90429} Daily Fluid Restriction: {daily fluid restriction:71563} Last Modified Barium Swallow with Video (Video Swallowing Test): {done not done:03364} Treatments at the Time of Hospital Discharge: Respiratory Treatments: Oxygen Therapy: {Therapy; copd oxygen:41811} Ventilator: {MICHELE Ventilator:74236} Rehab Therapies: {GEN THERAPY DISCIPLINE SCAL:7569370} Weight Bearing Status/Restrictions: {POD WEIGHT BEARIN} Other Medical Equipment (for information only, NOT a DME order): {Assistive Devices DME:77184} Other Treatments: Patient's personal belongings (please select all that are sent with patient): {MICHELE Patient Belongings:71339} RN SIGNATURE: {E-signature:12042} CASE MANAGEMENT/SOCIAL WORK SECTION Inpatient Status Date: Discharging to Facility/ Agency Name: [facility] Address: [address] [place] [address] Dialysis Facility (if applicable) Name: Address: Dialysis Schedule: Phone: Fax: Dynamics Ax Solution Architect/Rn Circulating signature: {E-signature:50336} PHYSICIAN SECTION Name: Megan Nascimento Prognosis: {Rehab Prognosis:98109} Condition at Discharge: {Patient Condition:72952} Rehab Potential (if transferring to Rehab): {Rehab Prognosis:24521} Recommended Labs or Other Treatments After Discharge: The individual is being admitted to a nursing facility directly from an [facility] or a unit of a [facility] that is not operated by or licensed by [facility] under section 5119.14 or 5160-3-15.1 5 The individual requires the level of services provided by a nursing facility for the condition for which he or she was treated in the hospital and, Physician Certification: I certify the above information and transfer of Megan Nascimento is necessary for the continuing treatment of the diagnosis listed and that he requires {MICHELE Level of Care:07670} for {greater less than:87273} 30 days. Update Admission H&P: {MICHELE Changes in H&P:56759} PHYSICIAN SIGNATURE: {E-signature:17806} documented in this [facility]07-25-2025 NotePatient states he quit smoking in 1999, no history of vaping or smokeless tobacco. Smoking cessation counseling no indicated.[facility] 02-11-2025 [facility] - Infectious Diseases Attending [...] HFrEF (heart failure with reduced ejection fraction) ([facility]) 09/22/2020 Bladder cancer ([facility]) CHF (congestive heart failure) ([facility]) Chronic HFrEF (heart failure with reduced ejection fraction) ([facility]) 09/21/2020 Chronic kidney disease DM (diabetes mellitus) (HCC) DM (diabetes mellitus) (HCC) DVT (deep venous thrombosis) ([facility]) ED (erectile dysfunction) Follicular non-Hodgkin's lymphoma (HCC) GERD (gastroesophageal reflux disease) GERD (gastroesophageal reflux disease) HTN (hypertension) HTN (hypertension) Hyperlipidemia Left bundle branch block 09/11/2020 Non-ischemic cardiomyopathy (CMS/HCC) ([facility]) Presence of cardiac resynchronization therapy defibrillator (VALET PARKING ATTENDANT-D) 01/17/2022 PUD (peptic ulcer disease) Pulmonary embolism (HCC) Pulmonary fibrosis ([facility]) Rosacea Stage 3b chronic kidney disease ([facility]) 09/21/2020 Tachycardia [2] Past Surgical History: Procedure Laterality Date BONE MARROW BIOPSY CARDIAC PACEMAKER PLACEMENT COLONOSCOPY COLONOSCOPY COSMETIC SURGERY face lift, rhinoplasty EYE SURGERY cataract removal FACIAL COSMETIC SURGERY LYMPH NODE BIOPSY SEPTOPLASTY SKIN BIOPSY VENTRICULA (more content not included)...[facility] [id number] Patient's home Note* Home Care - Maria Antonia Mcmullen RN - 02/11/2025 8:39 AM EDT Patient is currently active with [facility]. The patients current certification period will on 04/04/2025. The patient is currently receiving SN, PT services through the agency. Hospitality Team Member to continue to follow. [facility] [id number] Consult note* Mannie Samuel MD - 02/10/2025 2:43 PM EDT Associated Order(s): IP CONSULT TO INFECTIOUS DISEASES Images from the original note were not included. [facility] - Infectious Diseases Attending Consult [...] HFrEF (heart failure with reduced ejection fraction) ([facility]) 09/22/2020 Bladder cancer ([facility]) CHF (congestive heart failure) ([facility]) Chronic HFrEF (heart failure with reduced ejection fraction) ([facility]) 09/21/2020 Chronic kidney disease DM (diabetes mellitus) (HCC) DM (diabetes mellitus) (HCC) DVT (deep venous thrombosis) ([facility]) ED (erectile dysfunction) Follicular non-Hodgkin's lymphoma (HCC) GERD (gastroesophageal reflux disease) GERD (gastroesophageal reflux disease) HTN (hypertension) HTN (hypertension) Hyperlipidemia Left bundle branch block 09/11/2020 Non-ischemic cardiomyopathy (CMS/HCC) ([facility]) Presence of cardiac resynchronization therapy defibrillator (VALET PARKING ATTENDANT-D) 01/17/2022 PUD (peptic ulcer disease) Pulmonary embolism ([facility]) Pulmonary fibrosis ([facility]) Rosacea Stage 3b chronic kidney disease ([facility]) 09/21/2020 Tachycardia [2] Past Surgical History: Procedure [...] 50 mL IVPB Mini-Bag Plus 2,000 mg [id number] Moises Adan MD cholecalciferol (Vitamin D-3) tablet [...] Blood Pressure Father High Blood Pressure Mother [facility] [id number] Consult note* Mannie Samuel MD - 02/10/2025 2:43 PM EDT Associated Order(s): IP CONSULT TO INFECTIOUS DISEASES Images from the original note were not included. [facility] - Infectious Diseases Attending Consult [...] HFrEF (heart failure with reduced ejection fraction) ([facility]) 09/22/2020 Bladder cancer (HCC) CHF (congestive heart failure) ([facility]) Chronic HFrEF (heart failure with reduced ejection fraction) ([facility]) 09/21/2020 Chronic kidney disease DM (diabetes mellitus) (HCC) DM (diabetes mellitus) (HCC) DVT (deep venous thrombosis) ([facility]) ED (erectile dysfunction) Follicular non-Hodgkin's lymphoma (HCC) GERD (gastroesophageal reflux disease) GERD (gastroesophageal reflux disease) HTN (hypertension) HTN (hypertension) Hyperlipidemia Left bundle branch block 09/11/2020 Non-ischemic cardiomyopathy (CMS/HCC) ([facility]) Presence of cardiac resynchronization therapy defibrillator (VALET PARKING ATTENDANT-D) 01/17/2022 PUD (peptic ulcer disease) Pulmonary embolism (HCC) Pulmonary fibrosis (HCC) Rosacea Stage 3b chronic kidney disease ([facility]) 09/21/2020 Tachycardia [2] Past Surgical History: Procedure [...] 50 mL IVPB Mini-Bag Plus 2,000 mg [id number] Moises Adan MD cholecalciferol (Vitamin D-3) tablet [...] High Blood Pressure Mother documented in this [facility]07-24-2025 History and physical note* Moises Adan [...] Information Primary Emergency Contact: AzamZuleyka Mobile Relation: Program Assistant Secondary Emergency Contact: Shaylee Nascimento Relation: Child ADVANCED CARE PLANNING Megan Nascimento : 1940 Primary Care Physician: Gibson Roth (Inactive) The patient and/or family/surrogate voluntarily agreed to participate in ACP services. Patient s cognitive capacity: Alert, Orientedx3 Code Status: [x_] [FULL CODE - Continue all advanced life support: CPR,intubation,invasive procedures] [_] [DNR-CCA - DO NOT do CPR, intubation] [_] [DNR-BUTADIENE CONVERTER HELPER - Comfort care only] [_] DNR form [was/was not] signed Moises Adan MD Division of Hospitalist Medicine [employer] [facility] [1] Past Medical History: Diagnosis Date Acute HFrEF (heart failure with reduced ejection fraction) ([facility]) 09/22/2020 Bladder cancer (HCC) CHF (congestive heart failure) ([facility]) Chronic HFrEF (heart failure with reduced ejection fraction) ([facility]) 09/21/2020 Chronic kidney disease DM (diabetes mellitus) ([facility]) DM (diabetes mellitus) ([facility]) DVT (deep venous thrombosis) (HCC) ED (erectile dysfunction) Follicular non-Hodgkin's lymphoma (HCC) GERD (gastroesophageal reflux disease) GERD (gastroesophageal reflux disease) HTN (hypertension) HTN (hypertension) Hyperlipidemia Left bundle branch block 09/11/2020 Non-ischemic cardiomyopathy (CMS/HCC) (HCC) Presence of cardiac resynchronization therapy defibrillator (VALET PARKING ATTENDANT-D) 01/17/2022 PUD (peptic ulcer disease) Pulmonary embolism [...] eye Lovastatin Other reaction(s): Myalgia Other T [facility] HospitalNmvmrm09-08-0838 NoteAttending History and Physical Admit Date: 02/10/2025 [...] edema bilateral lower extremit (more content not included)...[facility]07-24-2025 History and physical note* Moises Adan [...] Information Primary Emergency Contact: AzamZuleyka Mobile Relation: Program Assistant Secondary Emergency Contact: Shaylee Nascimento Relation: Child ADVANCED CARE PLANNING Megan Nascimento : 1940 Primary Care Physician: Gibson Roth (Inactive) The patient and/or family/surrogate voluntarily agreed to participate in ACP services. Patient s cognitive capacity: Alert, Orientedx3 Code Status: [x_] [FULL CODE - Continue all advanced life support: CPR,intubation,invasive procedures] [_] [DNR-CCA - DO NOT do CPR, intubation] [_] [DNR-BUTADIENE CONVERTER HELPER - Comfort care only] [_] DNR form [was/was not] signed Moises Adan MD [facility] [1] Past Medical History: Diagnosis Date Acute HFrEF (heart failure with reduced ejection fraction) (HCC) 09/22/2020 Bladder cancer (HCC) CHF (congestive heart failure) (HCC) Chronic HFrEF (heart failure with reduced ejection fraction) ([facility]) 09/21/2020 Chronic kidney disease DM (diabetes mellitus) (HCC) DM (diabetes mellitus) (HCC) DVT (deep venous thrombosis) (HCC) ED (erectile dysfunction) Follicular non-Hodgkin's lymphoma (HCC) GERD (gastroesophageal reflux disease) GERD (gastroesophageal reflux disease) HTN (hypertension) HTN (hypertension) Hyperlipidemia Left bundle branch block 09/11/2020 Non-ischemic cardiomyopathy (CMS/HCC) (HCC) Presence of cardiac resynchronization therapy defibrillator (VALET PARKING ATTENDANT-D) 01/17/2022 PUD (peptic ulcer disease) Pulmonary embolism [...] Other reaction(s): Myalgia Other documented in this [facility]07-24-2025 Emergency department Note* Latricia Landa DO - [...] (premix) (1,500 mg IntraVENous New Bag 02/10/25 6312) cefepime (Maxipime) 2,000 mg in sodium chloride [...] HFrEF (heart failure with reduced ejection fraction) ([facility]) 09/22/2020 Bladder cancer ([facility]) CHF (congestive heart failure) ([facility]) Chronic HFrEF (heart failure with reduced ejection fraction) ([facility]) 09/21/2020 Chronic kidney disease DM (diabetes mellitus) ([facility]) DM (diabetes mellitus) ([facility]) DVT (deep venous thrombosis) ([facility]) ED (erectile dysfunction) Follicular non-Hodgkin's lymphoma ([facility]) GERD (gastroesophageal reflux disease) GERD (gastroesophageal reflux disease) HTN (hypertension) HTN (hypertension) Hyperlipidemia Left bundle branch block 09/11/2020 Non-ischemic cardiomyopathy (CMS/HCC) ([facility]) Presence of cardiac resynchronization therapy defibrillator (VALET PARKING ATTENDANT-D) 01/17/2022 PUD (peptic ulcer disease) Pulmonary embolism ([facility]) Pulmonary fibrosis ([facility]) Rosacea Stage 3b chronic kidney disease ([facility]) 09/21/2020 Tachycardia [2] Past Surgical History: Procedure [...] Landa DO 02/10/25 0551 documented in this [facility]07-24-2025 Physician Emergency department Note* Latricia Landa DO [...] for the entirety of this encounter. HPI Megna Nascimento is a 84 y.o. male CHF [...] (premix) (1,500 mg IntraVENous New Bag 02/10/25 1322) cefepime (Maxipime) 2,000 mg in sodium chloride [...] HFrEF (heart failure with reduced ejection fraction) ([facility]) 09/22/2020 Bladder cancer ([facility]) CHF (congestive heart failure) ([facility]) Chronic HFrEF (heart failure with reduced ejection fraction) ([facility]) 09/21/2020 Chronic kidney disease DM (diabetes mellitus) (HCC) DM (diabetes mellitus) ([facility]) DVT (deep venous thrombosis) ([facility]) ED (erectile dysfunction) Follicular non-Hodgkin's lymphoma ([facility]) GERD (gastroesophageal reflux disease) GERD (gastroesophageal reflux disease) HTN (hypertension) HTN (hypertension) Hyperlipidemia Left bundle branch block 09/11/2020 Non-ischemic cardiomyopathy (CMS/HCC) ([facility]) Presence of cardiac resynchronization therapy defibrillator (VALET PARKING ATTENDANT-D) 01/17/2022 PUD (peptic ulcer disease) Pulmonary embolism ([facility]) Pulmonary fibrosis ([facility]) Rosacea Stage 3b chronic kidney disease ([facility]) 09/21/2020 Tachycardia [2] Past Surgical History: Procedure [...] Abused: No Latricia Landa DO 02/10/25 0551 [facility] [id number] Telephone encounter Note* Telephone Encounter - Bipin Givens RN - 02/07/2025 1:50 PM EDT TC to Pt No answer LVM [facility] [id number] Miscellaneous Notes* Telephone Encounter - Bipin Givens [...] post discharge phone call. documented in this [facility]07-21-2025 Telephone encounter Note* Telephone Encounter - Marisol Kim - 02/07/2025 1:32 PM EDT Patient left message saying he had a question about meds [facility] HospitalEomwuh13-47-2299 Telephone encounter Note* Telephone Encounter - Bipin Givens RN - 02/07/2025 8:35 AM EDT Per Marcela Rosado Pt can continue the Dupixent No answer LVM explaining this as VM states full name [facility] [id number] Telephone encounter Note* Telephone Encounter - Bipin [...] call again. 02/15/25 1430 Pt verbalizes understanding. [place] [id number] Miscellaneous Notes* Telephone Encounter - Bipin Givens [...] post discharge phone call. documented in this [facility]SMer[facility] HospitalNfhosm25-33-2587 Telephone encounter Note* Telephone Encounter - Nidia Garcia - 02/04/2025 2:14 PM EDT Patient called and was returning your phone call [id number] Telephone encounter Note* Telephone Encounter - Bipin Givens RN - 02/04/2025 2:02 PM EDT TC to Pt no answer LVM [address]Zipwgm93-03-1984 NoteChart reviewed. Attempted to contact patient for transitional outreach. No answer. Left VM requesting a return call back. Future outreach scheduled.[facility]07-18-2025 Telephone encounter Note* Telephone Encounter - CHLOE Manuel CNP - 02/04/2025 8:35 AM EDT Discharged with heart failure. Needs 72 hour post discharge phone call. [facility] [email or web address] Work Phone: [phone] 463-545107-16-2025 NoteFollowing patient for transitions. Received notification of patient's discharge home on 02/01 with MIRI via discharge report in [facility]. Future transitional outreach scheduled.[facility]07-15-2025 Nurse Note* Randy Cornelius RN - 02/01/2025 6:15 PM EDT AVS instructions given. Meds to bed delivered. IV's removed. monitor car operator removed, cleaned and placed at corresponding location nurses station. Patient has no questions or concerns at this time. Returning home via family. [address]Giqidp80-12-2022 Nurse Note* Randy Cornelius RN - 02/01/2025 6:15 PM EDT AVS instructions given. Meds to bed delivered. IV's removed. monitor car operator removed, cleaned and placed at corresponding location [...] care given). Prevention Measures in place, including: [place] sheet with pillows (in place), Pt declined Bilateralfoam heel protectors, off loading heels on pillows, Sacral foam and, Zinc/Moisture Barrier ointment. Moisture absorbant pad (in place), Bed Alarm On. Skin Care precaution order set in place d/t Simon score 18 on 01/28/2025. Dietitian consult in place. PT consult NA Simon > 3. D/W citrus picker skin assessment, preventions, and interventions implemented. Will continue to follow pt. Please Voicera for any questions or concerns. Saundra Vinson RN, BSN documented in this [facility]07-15-2025 Miscellaneous Notes* Care Coordination - Unknown Case Management - 02/01/2025 4:05 PM EDT Patient Choice Patient Name: MEGAN NASCIMENTO Date of : 1940 All Providers Sent Referral Name: [facility] Phone: [phone] Address: [address] [place] [address] * Home Care - Rachid Mc RN [...] HHC and agreeable to SN services with [facility] - Home Care. Care Types: [...] is noted as yes - consider a SUPERVISOR MARBLE evaluation once the patient returns home. START PATIENT REGISTRATION INFORMATION Order Information Order Signing Physician: Dee Jones MD Service Ordered RN ?: Yes Service Ordered PT ?: No Service Ordered OT ?: No Service Ordered ST ?: No Service Ordered SUPERVISOR MARBLE?:No Service Ordered DATA WAREHOUSE SPECIALIST?: No Following Physician: Dr. Rigoberto Durand Following Physician Overseeing Physician: Dr. Durand (Required for Residents only) Agreeable to Follow? Yes Date/Time of Call 02/01/25 10:23 AM, Spoke with: pending response from PCP Care Coordination Same Day SOC?: No Primary Care Physician: Dr. Rigoberto Durand Primary Care Physician Primary Care Physician Address: [address] [place] [address] [address], [place] [address] Visit Instructions: N/A Service Discharge Location Type: Home with Home Care Service Facility Name: N/A Service Floor Facility: N/A Service Room No: N/A Demographics Patient Last Name: Azam Patient First Name: Megan Language/Communication Barrier: none Service Address: [address] [place] [address] [address] Service City: [facility] ST: [place] Service ZIP: [address] Service (home) Other phone numbers: Telephone Information: Emergency Contact: Extended Emergency Contact Information Primary Emergency Contact: AzamZuleyka Mobile Relation: Program Assistant Secondary Emergency Contact: Negrito Nascimentosa Relation: Child [...] Caregiver Phone Number: na Caregiver Notes: N/A [employer] HIGHTECH: HI TECH - NEXT DAY [...] PMH significant for chronic HFrEF, NICM, s/p VALET PARKING ATTENDANT-D, CKD IV, HTN, DVT/PE, diabetes who presented to [facility] on 01/28/25 secondary to concern for ADHF. NT Pro BNP 23,300, troponin negative, CXR with pulmonary vascular congestion, bilateral pleural effusions, EKG paced. Cardiology consulted and Pt found to be massively hypervolemic, started on IV diuresis. Discharge Date: pending Referral Source-PACC: (Hospital/Unit): [facility] / [id number] B End PACC Note [...] Limits Permission given to speak with patient sales representatives/caregiver as indicated: Yes Confirmation of Payer with patient/family: Yes Payer Name: [employer] Medicare advantage : No Confirmation of Primary [...] Alone Support Systems: Children, Family members, Friends/neighbors, investment fund manager/web content & social media manager, Home carestaff Activities of Daily Living Ambulation: [...] Walker DME Provider: His daughter is his skin care instructor Patient's Goal/Discharge Plan Patient expects to be [...] fall injury Outcome: Progressing documented in this [facility]07-15-2025 Note* Care Coordination - Unknown Case Management - 02/01/2025 4:05 PM EDT Patient Choice Patient Name: MEGAN NASCIMENTO Date of : 1940 All Providers Sent Referral Name: [facility] Phone: [phone] Address: [address] [place] [address] [facility] HospitalImzfhw21-39-3968 Note* Care Coordination - Unknown Case Management - 02/01/2025 4:05 PM EDT Patient Choice Patient Name: MEGAN NASCIMENTO Date of : 1940 All Providers Sent Referral Name: [facility] Phone: [phone] Address: [address] [place] [address] [facility] HospitalDegrng71-15-6456 Note* Home Care - Rachid Mc RN - 02/01/2025 2:05 PM EDT Confirmed with Valerie at PCP's office that patient is active with Dr. Durand for PCP and he will follow for home care orders. [facility] HospitalJwifhr17-28-7566 Note* Home Care - Rachid Mc RN - 02/01/2025 2:05 PM EDT Confirmed with Valerie at PCP's office that patient is active with Dr. Durand for PCP and he will follow for home care orders. [facility] HospitalTbxbvb06-70-3625 NoteDischarge Summary Megan Nascimento : 1940 ADMIT DATE: 01/28/2025 DISCHARGE DATE: 02/01/2025 PRIMARY CARE PHYSICIAN: Gibson Roth (Inactive) VISIT STATUS: Admission CODE STATUS: Full Code DISCHARGE DIAGNOSES: Principal Problem: Acute systolic congestive heart failure (HCC) Active Problems: Presence of cardiac resynchronization therapy defibrillator (VALET PARKING ATTENDANT-D) HTN (hypertension) Follicular non-Hodgkin's lymphoma (HCC) HOSPITAL [...] his diagnosis/management during his stay here at [facility]: Acute, acute on chronic, unstable/uncontrolled chronic problems/diagnoses: Acute on chronic HFrEF EF now 12% 2/2 NICM. S/p VALET PARKING ATTENDANT-D. Stage C - Presented decompensated with volume [...] acute on chronic HFrEF 2/2 NICM, Per [facility], echo done 01-31-25 shows left ventricle with [...] Your Medications These medications were sent to [facility] [address] [place] [address] [place] [address] Hours: Friday to Friday 10 am to 6 pm tamsulosin 0.4 MG 24 hr capsule Torsemide 40 MG tablet DIET: Adult diet Regular; Low Sodium (2 gm); 5 carb choices (75 gm/meal) ACTIVITY: No restriction. (more content not included)...[facility]07-15-2025 Hospital course Narrative* Dee Jones MD - 02/01/2025 11:58 AM EDT Discharge Summary Megan Nascimento : 1940 ADMIT DATE: 01/28/2025 DISCHARGE DATE: 02/01/2025 PRIMARY CARE PHYSICIAN: Gibson Roth (Inactive) VISIT STATUS: Admission CODE STATUS: Full Code DISCHARGE DIAGNOSES: Principal Problem: Acute systolic congestive heart failure (HCC) Active Problems: Presence of cardiac resynchronization therapy defibrillator (VALET PARKING ATTENDANT-D) HTN (hypertension) Follicular non-Hodgkin's lymphoma (HCC) HOSPITAL [...] his diagnosis/management during his stay here at [facility]: Acute, acute on chronic, unstable/uncontrolled chronic problems/diagnoses: Acute on chronic HFrEF EF now 12% 2/2 NICM. S/p VALET PARKING ATTENDANT-D. Stage C - Presented decompensated with volume [...] Your Medications These medications were sent to [facility] [address] [place] [address] Hours: Friday to Friday 10 am to 6 pm tamsulosin 0.4 MG 24 hr capsule Torsemide 40 MG tablet DIET: Adult diet Regular; Low Sodium (2 gm); 5 carb choices (75 gm/meal) ACTIVITY: No restriction. COMPLEXITY OF FOLLOW UP: [] Moderate Complexity: follow up within 7-14 calendar days (82512) [] Severe Complexity: follow up within 7 calendar days (56135) FOLLOW UP TESTING, PENDING RESULTS OR REFERRALS AT TRANSITIONAL CARE VISIT: [] Yes [] No PENDING STUDIES: DISPOSITION: Home with Home Health Care FACILITY/HOME CARE AGENCY NAME: Follow up with Petra Renteria APRN - [address], [address] [facility] [address] Go on 02/15/2025 appointment time 2:30pm INSTRUCTIONS [...] MD 02/01/2025, 11:58 AM documented in this [facility]07-15-2025 Note* Care Coordination - Nelly Pisano RN - 02/01/2025 10:59 AM EDT Care Management Progress Note Short Medical why still here: Echo complete, EF 12%. Cardiology following, going to treat medically. Meds being changed Planned Discharge Disposition: Home or Self Care Barriers/Today we still Wait: Administering IV medications, Clinical stability Length of Stay (Days): 4 GMLOS: 3.9 [id number] [facility]* Care Coordination - Nelly Pisano RN - 02/01/2025 10:59 AM EDT Care Management Progress Note Short Medical why still here: Echo complete, EF 12%. Cardiology following, going to treat medically. Meds being changed Planned Discharge Disposition: Home or Self Care Barriers/Today we still Wait: Administering IV medications, Clinical stability Length of Stay (Days): 4 GMLOS: 3.9 [place] [id number] NoteCare Management Progress Note Short Medical why still here: Echo complete, EF 12%. Cardiology following, going to treat medically. Meds being changed Planned Discharge Disposition: Home or Self Care Barriers/Today we still Wait: Administering IV medications, Clinical stability Length of Stay (Days): 4 GMLOS: 3.9 [facility] [id number] Note* Home Care - Rachid Mc RN - 02/01/2025 10:21 AM EDT Start PACC Note Home Health Referral Educated patient on Home Care and services available. Patient offered choice of available HHC and agreeable to SN services with [facility]. Care Types: [...] is noted as yes - consider a SUPERVISOR MARBLE evaluation once the patient returns home. START PATIENT REGISTRATION INFORMATION Order Information Order Signing Physician: Dee Jones MD Service Ordered RN ?: Yes Service Ordered PT ?: No Service Ordered OT ?: No Service Ordered ST ?: No Service Ordered SUPERVISOR MARBLE?:No Service Ordered DATA WAREHOUSE SPECIALIST?: No Following Physician: Dr. Rigoberto Durand Following Physician Overseeing Physician: Dr. Durand (Required for Residents only) Agreeable to Follow? Yes Date/Time of Call 02/01/25 10:23 AM, Spoke with: pending response from PCP Care Coordination Same Day SOC?: No Primary Care Physician: Dr. Rigoberto Durand Primary Care Physician Primary Care Physician Address: [address] [place] [address] [address], [place] [address] Visit Instructions: N/A Service Discharge Location Type: Home with Home Care Service Facility Name: N/A Service Floor Facility: N/A Service Room No: N/A Demographics Patient Last Name: Azam Patient First Name: Megan Language/Communication Barrier: none Service Address: [address] [place] [address] [address] Service City: [place] Service ST: [place] Service ZIP: [address] Service (home) Other phone numbers: Telephone Information: Emergency Contact: Extended Emergency Contact Information Primary Emergency Contact: Zuleyka Nascimento Mobile Relation: Program Assistant Secondary Emergency Contact: Shaylee Nascimento Relation: Child [...] Caregiver Phone Number: na Caregiver Notes: N/A [employer]-Se[employer] Games List HIGHTECH: PlaySpan - NEXT DAY REQUEST Requests Next Available [...] PMH significant for chronic HFrEF, NICM, s/p VALET PARKING ATTENDANT-D, CKD IV, HTN, DVT/PE, diabetes who presented to [facility] on 01/28/25 secondary to concern for ADHF. NT Pro BNP 23,300, troponin negative, CXR with pulmonary vascular congestion, bilateral pleural effusions, EKG paced. Cardiology consulted and Pt found to be massively hypervolemic, started on IV diuresis. Discharge Date: pending Referral Source-PACC: (Hospital/Unit): [facility] / W5-541/W5-541 B End PACC Note [id number] [facility]* Home Care - Rachid Mc RN - 02/01/2025 10:21 AM EDT Start PACC Note Home Health Referral Educated patient on Home Care and services available. Patient offered choice of available HHC and agreeable to SN services with [facility]. Care Types: [...] is noted as yes - consider a SUPERVISOR MARBLE evaluation once the patient returns home. [place] PATIENT REGISTRATION INFORMATION Order Information Order Signing Physician: Dee Jones MD Service Ordered RN ?: Yes Service Ordered PT ?: No Service Ordered OT ?: No Service Ordered ST ?: No Service Ordered SUPERVISOR MARBLE?:No Service Ordered DATA WAREHOUSE SPECIALIST?: No Following Physician: Dr. Rigoberto Durand Following Physician Overseeing Physician: Dr. Durand (Required for Residents only) Agreeable to Follow? Yes Date/Time of Call 02/01/25 10:23 AM, Spoke with: pending response from PCP Care Coordination Same Day SOC?: No Primary Care Physician: Dr. Rigoberto Durand Primary Care Physician Primary Care Physician Address: [address] [place] [address] [address], [place] [address] Visit Instructions: N/A Service Discharge Location Type: Home with Home Care Service Facility Name: N/A Service Floor Facility: N/A Service Room No: N/A Demographics Patient Last Name: Azam Patient First Name: Megan Language/Communication Barrier: none Service Address: [address] [place] [address] [address] Service City: [facility] ST: [place] Service ZIP: [address] Service (home) Other phone numbers: Telephone Information: Emergency Contact: Extended Emergency Contact Information Primary Emergency Contact: AzamZuleyka Mobile Relation: Program Assistant Secondary Emergency Contact: Shaylee Nascimento Relation: Child [...] Caregiver Phone Number: na Caregiver Notes: N/A PhoRent List HIGHTECH: 1Rebel TECH - NEXT DAY REQUEST Requests Next [...] PMH significant for chronic HFrEF, NICM, s/p VALET PARKING ATTENDANT-D, CKD IV, HTN, DVT/PE, diabetes who presented to [facility] on 01/28/25 secondary to concern for ADHF. NT Pro BNP 23,300, troponin negative, CXR with pulmonary vascular congestion, bilateral pleural effusions, EKG paced. Cardiology consulted and Pt found to be massively hypervolemic, started on IV diuresis. Discharge Date: pending Referral Source-PACC: (Hospital/Unit): [facility] / W5-541/W5-541 B End PACC Note [facility] [id number] NoteStart PACC Note Home Health Referral Educated patient on Home Care and services available. Patient offered choice of available HHC and agreeable to SN services with [facility]. Care Types: [...] is noted as yes - consider a SUPERVISOR MARBLE evaluation once the patient returns home. START PATIENT REGISTRATION INFORMATION Order Information Order Signing Physician: Dee Jones MD Service Ordered RN ?: Yes Service Ordered PT ?: No Service Ordered OT ?: No Service Ordered ST ?: No Service Ordered SUPERVISOR MARBLE?:No Service Ordered DATA WAREHOUSE SPECIALIST?: No Following Physician: Dr. Rigoberto Durand Following Physician Overseeing Physician: Dr. Durand (Required for Residents only) Agreeable to Follow? Yes Date/Time of Call 02/01/25 10:23 AM, Spoke with: pending response from PCP Care Coordination Same Day SOC?: No Primary Care Physician: Dr. Rigoberto Durand Primary Care Physician Primary Care Physician Address: [address] [place] [address] [address], [place] [address] Visit Instructions: N/A Service Discharge Location Type: Home with Home Care Service Facility Name: N/A Service Floor Facility: N/A Service Room No: N/A Demographics Patient Last Name: Azam Patient First Name: Megan Language/Communication Barrier: none Service Address: [address] [place] [address] [address] Service City: [facility] ST: [place] Service ZIP: [phone] Service (home) Other phone numbers: Telephone Information: Emergency Contact: Extended Emergency Contact Information Primary Emergency Contact: AzamZuleyka Mobile Relation: Program Assistant Secondary Emergency Contact: AzamShaylee Relation: Child Admission Information Admit Date: 01/28/2025 Patient status at discharge: Inpatient Admitting Diagnosis: AICD (automatic cardioverter/defibrillator) present [Z95.810] Bilateral leg edema [R60.0] Acute systolic congestive heart failure (HCC) [I50.21] Chronic kidney disease, unspecified CKD stage [N18.9] Caregiver Information Caregiver First Name: ron Caregiver Last Name: na Caregiver Relationship to Patient na Caregiver Phone Number: na Caregiver Notes: N/A Qu[employer]De[employer]-Seast[employer] Games List HIGHTECH: HI TECH - NEXT DAY [...] PMH significant for chronic HFrEF, NICM, s/p VALET PARKING ATTENDANT-D, CKD IV, HTN, DVT/PE, diabetes who presented to [facility] on 01/28/25 secondary to concern for ADHF. NT Pro BNP 23,300, troponin negative, CXR with pulmonary vascular congestion, bilateral pleural effusions, EKG paced. Cardiology consulted and Pt found to be massively hypervolemic, started on IV diuresis. Discharge Date: pending Referral Source-PACC: (Hospital/Unit): [facility] / W5-541/W5-541 B End PACC [facility]07-15-2025 Hospital Discharge instructions* Discharge Instr - Other Orders* Rachid Mc RN - 02/01/2025 10:18 AM EDT Discharging to Facility/ Agency Name: [facility] Address: [address] [place] [address] * Attachments The following attachments cannot be sent through Care Everywhere. * [facility] HEART MANAGEMENT ZONES documented in this [facility]07-15-2025 [facility] [place] [facility] Cardiology /Electrophysiology Progress Note HPI / Interval History: Megan Nascimento is a 84 year old male with a PMH of chronic HFrEF, NICM, s/p VALET PARKING ATTENDANT-D, CKD IV, HTN, DVT/PE, diabetes who presented to [facility] on 01/28/25 secondary to concern for ADHF. [...] HFrEF EF now 12% 2/2 NICM. S/p VALET PARKING ATTENDANT-D. Stage C - Presented decompensated with volume [...] - It would be appropriate to review [facility] at first follow up considering worsening LVEF. [...] the cardiology office to obtain appropriate covering ASSISTANT MERCHANDISER/physician. Medications: Scheduled Meds[1] Infusion Medications: Continuous Meds[2] [...] 140 140 K 3 (more content not included)...[facility]07-15-2025 History of Present illness Narrative* Cindy Recinos, CHLOE - PEARLER - 02/01/2025 8:15 AM EDT [facility] [place] [facility] Cardiology /Electrophysiology Progress Note HPI / Interval History: Megan Nascimento is a 84 year old male with a PMH of chronic HFrEF, NICM, s/p VALET PARKING ATTENDANT-D, CKD IV, HTN, DVT/PE, diabetes who presented to [facility] on 01/28/25 secondary to concern for ADHF. [...] HFrEF EF now 12% 2/2 NICM. S/p VALET PARKING ATTENDANT-D. Stage C - Presented decompensated with volume [...] the cardiology office to obtain appropriate covering ASSISTANT MERCHANDISER/physician. Medications: Scheduled Meds[1] Infusion Medications: Continuous Meds[2] [...] 40 mg, Oral, Daily [2] * CHLOE Hdz CNP - 01/31/2025 9:34 AM EDT [facility] [place] [facility] Cardiology /Electrophysiology Progress Note HPI / Interval History: Pt is a 84 year old male with a PMH significant for chronic HFrEF, NICM, s/p VALET PARKING ATTENDANT-D, CKD IV, HTN, DVT/PE, diabetes who presented to [facility] on 01/28/25 secondary to concern for ADHF. [...] restriction #HTN -SBP 120-130s. Continue GDMT #S/p VALET PARKING ATTENDANT-D -Following in our device clinic, last cardiac device check with STEAM TRAIN DRIVER=98%, no events Addendum 1350: labs [...] LVEFPHYS, LVEF2D, EF Dena Curtis APRN - [facility] Date Of Service 01/31/2025 [1] cholecalciferol, [...] Primary Emergency Contact: Zuleyka Nascimento Mobile Relation: Program Assistant Secondary Emergency Contact: Shaylee Nascimento Relation: Child Elarl Sanchez DO Division of Hospitalist Medicine [facility] [1] Past Medical History: Diagnosis Date Acute HFrEF (heart failure with reduced ejection fraction) ([facility]) 09/22/2020 Bladder cancer ([facility]) CHF (congestive heart failure) ([facility]) Chronic HFrEF (heart failure with reduced ejection fraction) ([facility]) 09/21/2020 Chronic kidney disease DM (diabetes mellitus) (HCC) DM (diabetes mellitus) ([facility]) DVT (deep venous thrombosis) ([facility]) ED (erectile dysfunction) Follicular non-Hodgkin's lymphoma ([facility]) GERD (gastroesophageal reflux disease) GERD (gastroesophageal reflux disease) HTN (hypertension) HTN (hypertension) Hyperlipidemia Left bundle branch block 09/11/2020 Non-ischemic cardiomyopathy (CMS/HCC) ([facility]) Presence of cardiac resynchronization therapy defibrillator (VALET PARKING ATTENDANT-D) 01/17/2022 PUD (peptic ulcer disease) Pulmonary embolism ([facility]) Pulmonary fibrosis ([facility]) Rosacea Stage 3b chronic kidney disease ([facility]) 09/21/2020 Tachycardia [2] cholecalciferol, 25 mcg, Oral, [...] On: Kcal/kg Weight Used for Energy Requirements: [place] Weight for Energy Calculation (kg): 67 kg Total Energy Requirements (kcals/day): 25-28 kcal/kg = 3435-2378 kcal Weight Used for Protein Requirements: [place] Weight in Kg Used for Protein Requirements: [...] kg (193 lb 9.6 oz) (standing 01/28) [place] Body Weight (lbs) (Calculated): 148 lbs [place] Body Weight (Kg) (Calculated): 67 kg % [place] Body Weight (Calculated): 127.8 % BMI (kg/m2) [...] soon to determine Aleksandra Pak RD Contact: [employer] Mobile chat or *[phone] * Jabari Osman PA-C - 01/30/2025 8:05 AM EDT [facility] [place] [facility] Cardiology /Electrophysiology Progress Note HPI / Interval History: Pt is a 84 year old male with a PMH significant for chronic HFrEF, NICM, s/p VALET PARKING ATTENDANT-D, CKD IV, HTN, DVT/PE, diabetes who presented to [facility] on 01/28/25 secondary to concern for ADHF. [...] electrolytes consider increase in dose tomorrow #S/p VALET PARKING ATTENDANT-D -Following in our device clinic, last cardiac device check with STEAM TRAIN DRIVER=98%, no events Cardiology will continue [...] Date: 01/28/2025 PCP: Gibson Roth (Inactive) Room#: W5-961/W5-187 B BRIEF HOSPITAL COURSE: 84-year-old male presented [...] Primary Emergency Contact: Zuleyka Nascimento Mobile Relation: Program Assistant Secondary Emergency Contact: Shaylee Nascimento Relation: Child Jeremy Sanchez DO Division of Hospitalist Medicine [facility] [1] Past Medical History: Diagnosis Date Acute HFrEF (heart failure with reduced ejection fraction) ([facility]) 09/22/2020 Bladder cancer (HCC) CHF (congestive heart failure) (HCC) Chronic HFrEF (heart failure with reduced ejection fraction) ([facility]) 09/21/2020 Chronic kidney disease DM (diabetes mellitus) (HCC) DM (diabetes mellitus) (HCC) DVT (deep venous thrombosis) ([facility]) ED (erectile dysfunction) Follicular non-Hodgkin's lymphoma (HCC) GERD (gastroesophageal reflux disease) GERD (gastroesophageal reflux disease) HTN (hypertension) HTN (hypertension) Hyperlipidemia Left bundle branch block 09/11/2020 Non-ischemic cardiomyopathy (CMS/HCC) ([facility]) Presence of cardiac resynchronization therapy defibrillator (VALET PARKING ATTENDANT-D) 01/17/2022 PUD (peptic ulcer disease) Pulmonary embolism (HCC) Pulmonary fibrosis ([facility]) Rosacea Stage 3b chronic kidney disease ([facility]) 09/21/2020 Tachycardia [2] cholecalciferol, 25 mcg, Oral, [...] Date: 01/28/2025 PCP: Gibson Roth (Inactive) Room#: W5-871/W5-618 B BRIEF HOSPITAL COURSE: 84-year-old male presented [...] bedside. States he had a trip to [place] couple days ago. Denies any cough, congestion, [...] Primary Emergency Contact: Zuleyka Nascimento Mobile Relation: Program Assistant Secondary Emergency Contact: Shaylee Nascimento Relation: Child Jeremy Sanchez DO Division of Hospitalist Medicine [facility] [1] Past Medical History: Diagnosis Date Acute HFrEF (heart failure with reduced ejection fraction) ([facility]) 09/22/2020 Bladder cancer (HCC) CHF (congestive heart failure) (HCC) Chronic HFrEF (heart failure with reduced ejection fraction) ([facility]) 09/21/2020 Chronic kidney disease DM (diabetes mellitus) (HCC) DM (diabetes mellitus) (HCC) DVT (deep venous thrombosis) (HCC) ED (erectile dysfunction) Follicular non-Hodgkin's lymphoma (HCC) GERD (gastroesophageal reflux disease) GERD (gastroesophageal reflux disease) HTN (hypertension) HTN (hypertension) Hyperlipidemia Left bundle branch block 09/11/2020 Non-ischemic cardiomyopathy (CMS/HCC) ([facility]) Presence of cardiac resynchronization therapy defibrillator (VALET PARKING ATTENDANT-D) 01/17/2022 PUD (peptic ulcer disease) Pulmonary embolism (HCC) Pulmonary fibrosis (HCC) Rosacea Stage 3b chronic kidney disease ([facility]) 09/21/2020 Tachycardia [2] cholecalciferol, 25 mcg, Oral, [...] Diet order placed while pending transfer to [facility]. This patient was seen as a hospital courtesy for improved patient care and care progression. Thank you for allowing me to participate in the medical care of your patient. OSCAR INTERVENTIONS [x] Care Coordination & Progression [] Nursing Function [x] Orders Placed [] Symptom Assessment [] Patient Experience [] Patient / Caregiver Conversation documented in this [facility]07-14-2025 Plan of care note* Care Plan [...] Interventions Goal: Promote nutritional intake Outcome: Progressing [id number] Note* Care Coordination - Nelly Pisano RN - 01/31/2025 11:55 AM EDT Care Managment Initial Assessment Date: 01/31/2025 Patient Name: Megan Nascimento : 1940 Patient Information Source of Information: Patient Cognition/Language: WFL - Within Functional Limits Permission given to speak with patient sales representatives/caregiver as indicated: Yes Confirmation of Payer with patient/family: Yes Payer Name: [facility] Medicare advantage : No Confirmation of Primary Care Physician: Confirmed PCP Name: Dr Adonis oRth Seen in last 2 years?: Yes Primary Caregiver: Self If assistance needed, confirmed caregiver ready, willing and able to care for patient at discharge: Confirmed with: Living Arrangements Current Residence: Apartment Number of Floors 1 Number of Entry Steps: Bed/Bath Levels: Both first floor Facility: Facility Name: Plan to Return: Lives with: Alone Support Systems: Children, Family members, Friends/neighbors, investment fund manager/web content & social media manager, Home carestaff Activities of Daily Living Ambulation: [...] Walker DME Provider: His daughter is his skin care instructor Patient's Goal/Discharge Plan Patient expects to be [...] follow for needs. . Nelly Pisano RN [facility]07-14-2025 Note* Care Coordination - Nelly Pisano RN - 01/31/2025 11:55 AM EDT Care Managment Initial Assessment Date: 01/31/2025 Patient Name: Megan Nascimento : 1940 Patient Information Source of Information: Patient Cognition/Language: WFL - Within Functional Limits Permission given to speak with patient sales representatives/caregiver as indicated: Yes Confirmation of Payer with patient/family: Yes Payer Name: [employer] Medicare advantage [place]: No Confirmation of Primary Care Physician: Confirmed [...] Alone Support Systems: Children, Family members, Friends/neighbors, investment fund manager/web content & social media manager, Home carestaff Activities of Daily Living Ambulation: [...] Walker DME Provider: His daughter is his skin care instructor Patient's Goal/Discharge Plan Patient expects to be [...] follow for needs. . Nelly Pisano RN [facility] [id number] Nurse Note* Saundra Vinson RN - 01/31/2025 [...] care given). Prevention Measures in place, including: [place] sheet with pillows (in place), Pt declined Bilateralfoam heel protectors, off loading heels on pillows, Sacral foam and, Zinc/Moisture Barrier ointment. Moisture absorbant pad (in place), Bed Alarm On. Skin Care precaution order set in place d/t Simon score 18 on 01/28/2025. Dietitian consult in place. PT consult NA Simon > 3. D/W citrus picker skin assessment, preventions, and interventions implemented. Will continue to follow pt. Please Voicera for any questions or concerns. Saundra Vinson RN, BSN [facility] [id number] [facility] [place] [facility] Cardiology /Electrophysiology Progress Note HPI / Interval History: Pt is a 84 year old male with a PMH significant for chronic HFrEF, NICM, s/p VALET PARKING ATTENDANT-D, CKD IV, HTN, DVT/PE, diabetes who presented to [facility] on 01/28/25 secondary to concern for ADHF. [...] restriction #HTN -SBP 120-130s. Continue GDMT #S/p VALET PARKING ATTENDANT-D -Following in our device clinic, last cardiac device check with STEAM TRAIN DRIVER=98%, no events Addendum 1350: labs [...] EFBP, PLVEF, LVEFPHYS, LVEF2D, EF Dena Curtis, FORESTRY AND WILDLIFE MANAGER - [employer] Date Of Service 01/31/2025 [1] cholecalciferol, 25 mcg, Oral, Ngoc (more content not included)...[facility] [id number] NoteAttending Supervising Physician's Attestation Statement for Progress [...] due to renal dysfun (more content not included)...[facility]07-14-2025 Plan of care note* Care Plan [...] Goal: Promote nutritional intake Outcome: Progressing T [facility] HospitalKkggmr24-29-1022 Plan of care note* Care Plan - [...] low, brakes on, call light in reach. [facility] HospitalUiacjd06-23-1560 [facility] and [facility] Cardiology /Electrophysiology Progress Note HPI / Interval History: Pt is a 84 year old male with a PMH significant for chronic HFrEF, NICM, s/p VALET PARKING ATTENDANT-D, CKD IV, HTN, DVT/PE, diabetes who presented to [facility] on 01/28/25 secondary to concern for ADHF. [...] electrolytes consider increase in dose tomorrow #S/p VALET PARKING ATTENDANT-D -Following in our device clinic, last cardiac device check with STEAM TRAIN DRIVER=98%, no events Cardiology will continue [...] Of Service 01/30/2025 [1 (more content not included)...[facility] [id number] NoteAttending Supervising Physician's Attestation Statement for Progress [...] Date: 01/28/2025 PCP: Gibson Roth (Inactive) Room#: W5-541/W5-600 B BRIEF HOSPITAL COURSE: 84-year-old male presented [...] taken off Spirolactone d (more content not included)...[facility]07-12-2025 Plan of care note* Care Plan [...] Goal: Free from fall injury Outcome: Progressing [facility] [id number] Consult note* Triston Garduno MD - 01/29/2025 8:15 AM EDTAssociated Order(s): IP CONSULT TO CARDIOLOGY [facility] Cardiology /Electrophysiology Consult Note Reason for Consult/Chief Complaint: Dyspnea Referring provider: Dr. Hall Established heel pricker: Dr. Roth History of Present Illness: Megan Nascimento is a 84 y.o. 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 Initially presented at [facility] but transferred here for further management. This [...] NICM HFimpEF (EF 20%--41% 2021), status post VALET PARKING ATTENDANT-D placement - Continue diuresis with IV furosemide [...] ejection fraction, hypertension who who presented to [facility] with a chief complaint of shortness of breath and volume overload. He was seen by Dr. Lund yesterday and transferred here to [facility] due to lack of beds. IV diuresis [...] Hoffman MD, PhD Advanced Heart Failure Cardiology [facility]. [facility] [place] 1:12 PM 01/29/25 [facility] [email or web address] Work Phone: 1(474) 992-425007-12-2025 Consult note* Triston Garduno MD - 01/29/2025 8:15 AM EDTAssociated Order(s): IP CONSULT TO CARDIOLOGY [facility] Cardiology /Electrophysiology Consult Note Reason for Consult/Chief Complaint: Dyspnea Referring provider: Dr. Hall Established heel pricker: Dr. Roth History of Present Illness: Megan Nascimento is a 84 y.o. 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 Initially presented at [facility] but transferred here for further management. This [...] NICM HFimpEF (EF 20%--41% 2021), status post VALET PARKING ATTENDANT-D placement - Continue diuresis with IV furosemide [...] ejection fraction, hypertension who who presented to [facility] with a chief complaint of shortness of breath and volume overload. He was seen by Dr. Lund yesterday and transferred here to [facility] due to lack of beds. IV diuresis [...] Hoffman MD, PhD Advanced Heart Failure Cardiology [facility]. [facility] [place] 1:12 PM 01/29/25 * Wm Lund MD [...] 180lbs - Patient will be transferring to [facility], will put on the follow-up HF list [...] in the 24 hours ending 01/28/25 0910 @[id number]@ Gen: Comfortable, pleasant, on room air Neck: JVP up to angle of mandible CV: Regular, soft systolic murmur Pulm: Bilateral crackles Abd: Soft/NT Neuro: Nonfocal Extrem: Bilateral pitting edema up to above the knees Pertinent Labs: ABGs: No results found for: PHART, PO2ART, YFV2TBD INR: No results for input(s): INR in the last 72 hours. Cardiac Injury Profile: No results for input(s): CKTOTAL, CKMB, CKMBINDEX, TROPONINI in thelast 72 hours. Lipid Profile:No results found for: TRIG, HDL, LDLCALC, CHOL Hemoglobin A1C: No results found for: HGBA1C Wm Lund MD Cardiology [facility]. [facility] [place] 9:10 AM 01/28/25 documented in this [facility]07-12-2025 NoteAttending Supervising Physician's Attestation Statement for Progress [...] Date: 01/28/2025 PCP: Gibson Roth (Inactive) Room#: W5-541/W5-545 B BRIEF HOSPITAL COURSE: 84-year-old male presented [...] bedside. States he had a trip to [place] couple days ago. Denies any cough, congestion, [...] HF following Current diuresi (more content not included)...[facility] [id number] Plan of care note* Care Plan - [...] Goal: Free from fall injury Outcome: Progressing [facility] [id number] History and physical note* Rogelio Adams MD [...] 469 ms QTC Interval 507 ms P [place] 55 degrees QRS [place] 223 degrees T Wave [place] 37 degrees [place] Interval 264 ms Basic metabolic panel Collection [...] Problems: Presence of cardiac resynchronization therapy defibrillator (VALET PARKING ATTENDANT-D) HTN (hypertension) Follicular non-Hodgkin's lymphoma (HCC) CKD 4 Hx PE Following with HF team Diuresis as able Following BMP Will check PVR Cont supportive snf medications otherwise Due to the review of [...] Strict intake and output Inpatient consult to Cardiology--[facility]; CHF exacerbation Inpatient consult to Wound [...] HFrEF (heart failure with reduced ejection fraction) ([facility]) 09/22/2020 Bladder cancer (HCC) CHF (congestive heart failure) (HCC) Chronic HFrEF (heart failure with reduced ejection fraction) ([facility]) 09/21/2020 Chronic kidney disease DM (diabetes mellitus) (HCC) DM (diabetes mellitus) (HCC) DVT (deep venous thrombosis) (HCC) ED (erectile dysfunction) Follicular non-Hodgkin's lymphoma (HCC) GERD (gastroesophageal reflux disease) GERD (gastroesophageal reflux disease) HTN (hypertension) HTN (hypertension) Hyperlipidemia Left bundle branch block 09/11/2020 Non-ischemic cardiomyopathy (CMS/HCC) ([facility]) Presence of cardiac resynchronization therapy defibrillator (VALET PARKING ATTENDANT-D) 01/17/2022 PUD (peptic ulcer disease) Pulmonary embolism [...] tablet 25 mcg, 25 mcg, Oral, Daily, Moiess Adan MD, 25 mcg at cyanocobalamin (Vitamin [...] Adan MD, 20 mg at 01/28/25 0934 [facility] [id number] NoteHistory and Physical Admit Date: 01/28/2025 PCP: [...] 469 ms QTC Interval 507 ms P [place] 55 degrees QRS [place] 223 degrees T Wave [place] 37 degrees [place] Interval 264 ms Basic metabolic panel Collection [...] PRO BNP Collection T (more content not included)...[facility] [id number] History and physical note* Rogelio Adams MD [...] 469 ms QTC Interval 507 ms P [place] 55 degrees QRS [place] 223 degrees T Wave [place] 37 degrees [place] Interval 264 ms Basic metabolic panel Collection [...] Problems: Presence of cardiac resynchronization therapy defibrillator (VALET PARKING ATTENDANT-D) HTN (hypertension) Follicular non-Hodgkin's lymphoma (HCC) CKD 4 Hx PE Following with HF team Diuresis as able Following BMP Will check PVR Cont supportive snf medications otherwise Due to the review of [...] Strict intake and output Inpatient consult to Cardiology--[facility]; CHF exacerbation Inpatient consult to Wound [...] HFrEF (heart failure with reduced ejection fraction) ([facility]) 09/22/2020 Bladder cancer ([facility]) CHF (congestive heart failure) ([facility]) Chronic HFrEF (heart failure with reduced ejection fraction) ([facility]) 09/21/2020 Chronic kidney disease DM (diabetes mellitus) ([facility]) DM (diabetes mellitus) ([facility]) DVT (deep venous thrombosis) ([facility]) ED (erectile dysfunction) Follicular non-Hodgkin's lymphoma ([facility]) GERD (gastroesophageal reflux disease) GERD (gastroesophageal reflux disease) HTN (hypertension) HTN (hypertension) Hyperlipidemia Left bundle branch block 09/11/2020 Non-ischemic cardiomyopathy (CMS/HCC) ([facility]) Presence of cardiac resynchronization therapy defibrillator (VALET PARKING ATTENDANT-D) 01/17/2022 PUD (peptic ulcer disease) Pulmonary embolism ([facility]) Pulmonary fibrosis ([facility]) Rosacea Stage 3b chronic kidney disease ([facility]) 09/21/2020 Tachycardia [2] Past Surgical History: Procedure [...] Daily, Moises Adan MD, 25 mcg at [id number] cyanocobalamin (Vitamin B-12) tablet 1,000 mcg, 1,000 [...] EC tablet 40 mg, 40 mg, Oral, [facility] Hospital[facility] sacubitril-valsartan (Entresto) 24-26 MG per tablet [...] mg at 01/28/25 0934 documented in this [facility]07-11-2025 Emergency department Note* Aleksandra York RN - 01/28/2025 4:08 PM EDT Report given to [facility] for transfer to [facility] [id number] Emergency department Note* Aleksandra York RN - 01/28/2025 4:08 PM EDT Report given to [facility] for transfer to [facility] * Aleksandra York RN - 01/28/2025 4:06 [...] at rest. Denies chest pain. Seen at heel pricker office yesterday and was noted to be [...] at rest. Denies chest pain. Seen at heel pricker office yesterday and was noted to be [...] HFrEF (heart failure with reduced ejection fraction) ([facility]) 09/22/2020 Bladder cancer (HCC) CHF (congestive heart failure) ([facility]) Chronic HFrEF (heart failure with reduced ejection fraction) ([facility]) 09/21/2020 Chronic kidney disease DM (diabetes mellitus) (HCC) DM (diabetes mellitus) (HCC) DVT (deep venous thrombosis) (HCC) ED (erectile dysfunction) Follicular non-Hodgkin's lymphoma (HCC) GERD (gastroesophageal reflux disease) GERD (gastroesophageal reflux disease) HTN (hypertension) HTN (hypertension) Hyperlipidemia Left bundle branch block 09/11/2020 Non-ischemic cardiomyopathy (CMS/HCC) ([facility]) Presence of cardiac resynchronization therapy defibrillator (VALET PARKING ATTENDANT-D) 01/17/2022 PUD (peptic ulcer disease) Pulmonary embolism [...] Landa DO 01/28/25 0317 documented in this [facility]07-11-2025 Emergency department Note* Aleksandra York RN - 01/28/2025 4:06 PM EDT Report called to Ca Mojica RN [facility] [id number] NoteCARE PROGRESSION NOTE Diet order placed while pending transfer to [facility]. This patient was seen as a hospital courtesy for improved patient care and care progression. Thank you for allowing me to participate in the medical care of your patient. OSCAR INTERVENTIONS [x] Care Coordination & Progression [] Nursing Function [x] Orders Placed [] Symptom Assessment [] Patient Experience [] [facility] / Caregiver [facility] Emergency department Note* Aleksandra York RN - 01/28/2025 12:30 PM EDT 250 cc of urine empted this am, pt wheeled to restroom, voided and stooled. [facility] [id number] Telephone encounter Note* Telephone Encounter - Dania Mcknight RN - 01/28/2025 9:40 AM EDT ----- Message from Ralph Roth MD sent at 01/26/2025 5:16 PM EDT ----- Please call Friday for update, thank you [facility] [id number] Miscellaneous Notes* Telephone Encounter - Dania Mcknight RN - 01/28/2025 9:40 AM EDT ----- Message from Ralph Roth MD sent at 01/26/2025 5:16 PM EDT ----- Please call Friday for update, thank you documented in this [facility]07-11-2025 Consult note* Wm Lund MD - 01/28/2025 [...] 180lbs - Patient will be transferring to [facility], will put on the follow-up HF list [...] in the 24 hours ending 01/28/25 0910 @[id number]@ Gen: Comfortable, pleasant, on room air Neck: JVP up to angle of mandible CV: Regular, soft systolic murmur Pulm: Bilateral crackles Abd: Soft/NT Neuro: Nonfocal Extrem: Bilateral pitting edema up to above the knees Pertinent Labs: ABGs: No results found for: PHART, PO2ART, MRC4TTY INR: No results for input(s): INR in the last 72 hours. Cardiac Injury Profile: No results for input(s): CKTOTAL, CKMB, CKMBINDEX, TROPONINI in thelast 72 hours. Lipid Profile:No results found for: TRIG, HDL, LDLCALC, CHOL Hemoglobin A1C: No results found for: HGBA1C Wm Lund MD Cardiology [employer]. Heart [facility] [place] 9:10 AM 01/28/25 [employer] Work Phone: [phone]) 959-773907-11-2025 NoteCARDIOLOGY CONSULTATION Assessment/Plan: Cardiovascular Diagnoses # Acute [...] 180lbs - Patient will be transferring to [facility], will put on the follow-up HF list [...] in the 24 hours ending 01/28/25 0910 @[id number]@ Gen: Comfortable, pleasant, on room air Neck: JVP up to angle of mandible CV: Regular, soft systolic murmur Pulm: Bilateral crackles Abd: Soft/NT Neuro: Nonfocal Extrem: Bilateral pitting edema up to above the knees Pertinent Labs: ABGs: No results found for: PHART, PO2ART, GSD4MIY INR: No results for input(s): INR in the last 72 hours. Cardiac Injury Profile: No results for input(s): CKTOTAL, CKMB, CKMBINDEX, TROPONINI in the last 72 hours. Lipid Profile:No results found for: TRIG, HDL, LDLCALC, CHOL Hemoglobin A1C: No results found for: HGBA1C Wm Lund MD Cardiology [facility]. Heart [facility] [place] 9:10 AM 01/28/25[facility]07-11-2025 Emergency department Note* Lucas Fernandez RN - 01/28/2025 2:17 AM EDT No cardiac monitoring available at this time. Provider aware [facility] HospitalAwgagc07-94-1270 Physician Emergency department Note* Latricia Landa DO [...] at rest. Denies chest pain. Seen at heel pricker office yesterday and was noted to be [...] at rest. Denies chest pain. Seen at heel pricker office yesterday and was noted to be [...] (HCC) Presence of cardiac resynchronization therapy defibrillator (VALET PARKING ATTENDANT-D) 01/17/2022 PUD (peptic ulcer disease) Pulmonary embolism [...] a day Latricia Landa DO 01/28/25 0317 [facility] [id number] History of Present illness Narrative* Ralph Roth MD - 01/26/2025 3:20 PM EDT Images from the original note were not included. [facility] [place] [address] [place] [address] [facility] [address] Dept: [phone] Dept Loc: [phone] DATE of SERVICE:01/26/25 TIME of SERVICE: 3:59 [...] so he went to the hospital in [place]. Before he might have diverticulitis. His creatinine [...] ventricular pacing Focused cardiac ultrasound: Not done Interior Decorator present for focused cardiac ultrasound: Not applicable [...] HFrEF (heart failure with reduced ejection fraction) ([facility]) 09/22/2020 Bladder cancer ([facility]) CHF (congestive heart failure) ([facility]) Chronic HFrEF (heart failure with reduced ejection fraction) ([facility]) 09/21/2020 Chronic kidney disease DM (diabetes mellitus) ([facility]) DM (diabetes mellitus) ([facility]) DVT (deep venous thrombosis) ([facility]) ED (erectile dysfunction) Follicular non-Hodgkin's lymphoma ([facility]) GERD (gastroesophageal reflux disease) GERD (gastroesophageal reflux disease) HTN (hypertension) HTN (hypertension) Hyperlipidemia Left bundle branch block 09/11/2020 Non-ischemic cardiomyopathy (CMS/HCC) ([facility]) Presence of cardiac resynchronization therapy defibrillator (VALET PARKING ATTENDANT-D) 01/17/2022 PUD (peptic ulcer disease) Pulmonary embolism ([facility]) Pulmonary fibrosis ([facility]) Rosacea Stage 3b chronic kidney disease ([facility]) 09/21/2020 Tachycardia [2] Past Surgical History: Procedure [...] 180 tablet, Rfl: 3 documented in this [facility]05-25-2025 Radiology Diagnostic study note [facility] Imaging Services [address] [address] Abdomen/Pelvis without Cont MR#: [id number] Acct: [id number] Name: MEGAN NASCIMENTO Rep #: [id number] : 1940 M 84 From: Pet er Darius MULLINS PCP: Dr. Rigoberto Durand MD Status: REG E R Study:Abdomen/Pelvis without Cont Date of Exa m: 12/12/24 Exam# [id number] Ordering Dr: Rena Lorenz ADDENDUM by Dr. [...] to the right lower quadrant. Reading Location: [facility] 12/12/241434 Date cc: Dr. Rigoberto [...] lower chance of developing HCC. Reading [facility] CC: Dr. Rigoberto Durand MD; DASIA Faye ~ Paint Dipper: Signed [facility]03-05-2025 History of Present illness Narrative* Ralph Roth MD - 09/22/2024 3:00 PM EST [facility] Telehealth Cardiology Note DATE of [...] HFrEF (heart failure with reduced ejection fraction) ([facility]) 09/22/2020 Bladder cancer ([facility]) CHF (congestive heart failure) ([facility]) Chronic HFrEF (heart failure with reduced ejection fraction) ([facility]) 09/21/2020 Chronic kidney disease DM (diabetes mellitus) ([facility]) DM (diabetes mellitus) ([facility]) DVT (deep venous thrombosis) ([facility]) ED (erectile dysfunction) Follicular non-Hodgkin's lymphoma ([facility]) GERD (gastroesophageal reflux disease) GERD (gastroesophageal reflux disease) HTN (hypertension) HTN (hypertension) Hyperlipidemia Left bundle branch block 09/11/2020 Non-ischemic cardiomyopathy (CMS/HCC) ([facility]) Presence of cardiac resynchronization therapy defibrillator (VALET PARKING ATTENDANT-D) 01/17/2022 PUD (peptic ulcer disease) Pulmonary embolism ([facility]) Pulmonary fibrosis ([facility]) Rosacea Stage 3b chronic kidney disease ([facility]) 09/21/2020 Tachycardia Past Surgical History Past Surgical [...] redirect to the Timeline version of the [facility]ITAL[facility] [employer]. Limited Telehealth exam Constitutional: [x]Alert []Oriented [...] him. Will get him in for a tmac-ql-gtgs visit in about 3 months. Patient was [...] that they are currently in the state [facility]. If the patient dominick minor, permission has been obtained by the parent or guardian for the patient to receive medical care at this visit. documented in this [place] [address]-08-2025 Telephone encounter Note* Telephone Encounter - Di Hernández RN - 07/28/2024 9:25 AM EST ----- Message from Gibson Lamb sent at 07/28/2024 8:57 AM EST ----- Regarding: RE: Clinic check Called and spoke with the patient regarding both appointments (dates/time) for 09-22-2024 at the [facility]. ----- Message ----- From: Di Hernández RN [...] can R/S him with you at the [facility] on 08-04-2024 @ 10:30. [facility] HospitalBqprej80-49-1188 Miscellaneous Notes* Telephone Encounter - Di Hernández RN - 07/28/2024 9:25 AM EST ----- Message from Gibson Lamb sent at 07/28/2024 8:57 AM EST ----- Regarding: RE: Clinic check Called and spoke with the patient regarding both appointments (dates/time) for 09-22-2024 at the [facility]. ----- Message ----- From: Di Hernández RN Sent: 07/28/2024 8:40 AM EST To: Gibson Moore CMA Subject: RE: Clinic check Thanks Gibson His remote is not due till October . I moved clinic to September 22 at 2:30pm. Before Dr. Roth. If you could let patient know. Thank you ----- Message ----- From: Gbison CHANDNI Moore Sent: 07/28/2024 8:35 AM EST [...] can R/S him with you at the [facility] on 08-04-2024 @ 10:30. documented in this [facility]12-31-2024 Telephone encounter Note* Telephone Encounter - Bhargavi Pena RN - 07/20/2024 10:48 AM EST JAYMIE Renteria FORESTRY AND WILDLIFE MANAGER-PEARLER 01/09/24, labs 01/09/24. Rx pended. [facility] [id number] Miscellaneous Notes* Telephone Encounter - Bhargavi Pena RN - 07/20/2024 10:48 AM EST JAYMIE Renteria FORESTRY AND WILDLIFE MANAGER-PEARLER 01/09/24, labs 01/09/24. Rx pended. documented in this [facility]11-27-2024 Telephone encounter Note* Telephone Encounter - Katie Glass RN - 06/16/2024 8:49 AM EST Last OV with Everton Renteria on 01/09/24 [place] [id number] Miscellaneous Notes* Telephone Encounter - Katie Glass RN - 06/16/2024 8:49 AM EST Last OV with Everton Renteria on 01/09/24 * Telephone Encounter - Shannan Mccartney - 06/15/2024 3:41 PM EST Patient called [facility] and wanted to see if he could fill his cialis through our pharmacy, He does nothave refills at [facility] pharmacy for this and It the last prescription that was sent to [facility] refills on it. Patient requested that we ask the cardio provider that prescribed it last time for refills. If appropriate please send prescription to [facility] pharmacy, Rx pended for review, Thank you! documented in this encounterSMercy Health [facility]sburg HospitalRbusxz52-01-6297 Telephone encounter Note* Telephone Encounter - Shannan Mccartney - 06/15/2024 3:41 PM EST Patient called [facility] and wanted to see if he could fill his cialis through our pharmacy, He does nothave refills at [facility] pharmacy for this and It the last prescription that was sent to [facility] refills on it. Patient requested that we ask the cardio provider that prescribed it last time for refills. If appropriate please send prescription to [facility] pharmacy, Rx pended for review, Thank you! [place] [id number] Telephone encounter Note* Telephone Encounter - Katie Glass RN - 06/15/2024 12:14 PM EST Last OV with Everton Renteria on 01/09/24 BMP 01/09/[id number] Miscellaneous Notes* Telephone Encounter - Katie Glass RN - 06/15/2024 12:14 PM EST Last OV with Everton Renteria on 01/09/24 BMP 01/09/24 documented in this [facility]08-31-2024 Telephone encounter Note* Telephone Encounter - Ralph Roth MD - 03/20/2024 8:43 AM EDT There is very little difference between the vasodilators sildenafil and tadalafil. I will make the switch and discuss it with him at my next visit. [facility] HospitalDfmvbk69-85-9200 Miscellaneous Notes* Telephone Encounter - Ralph Roth MD - 03/20/2024 8:43 AM EDT There is very little difference between the vasodilators sildenafil and tadalafil. I will make the switch and discuss it with him at my next visit. * Telephone Encounter - Shannan Mccartney - 03/19/2024 12:44 PM EDT [facility] spoke with patient today; he stated he [...] therapy change appropriate please send prescription to [facility] pharmacy, Thank you so much! documented in this [facility]08-30-2024 Telephone encounter Note* Telephone Encounter - Shannan Mccartney - 03/19/2024 12:44 PM EDT [facility] spoke with patient today; he stated he [...] therapy change appropriate please send prescription to [facility] pharmacy, Thank you so much! [facility] [id number] Telephone encounter Note* Telephone Encounter - Katie Glass RN - 03/18/2024 2:50 PM EDT Last OV with Everton Renteria on 01/09/24 BMP 01/09/24 [id number] Miscellaneous Notes* Telephone Encounter - Katie Glass RN - 03/18/2024 2:50 PM EDT Last OV with Everton Renteria on 01/09/24 BMP 01/09/24 * Telephone Encounter - Inna Kaur - 03/18/2024 12:25 PM EDT Refill requested. RX pended. Thanks! documented in this encounterSMercy [facility] [id number] Telephone encounter Note* Telephone Encounter - Inna Kaur - 03/18/2024 12:25 PM EDT Refill requested. RX pended. Thanks! [facility] [id number] History of Present illness Narrative* Petra Renteria, CHLOE - PEARLER - 01/09/2024 10:30 AM EDT Images from the original note were not included. [facility] Cardiology Office Note DATE of SERVICE: 01/09/24 [...] transthoracic echo February 2022. 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, had toenails clipped, and then developed an [...] HFrEF (heart failure with reduced ejection fraction) ([facility]) 09/22/2020 Bladder cancer ([facility]) CHF (congestive heart failure) ([facility]) Chronic HFrEF (heart failure with reduced ejection fraction) ([facility]) 09/21/2020 Chronic kidney disease DM (diabetes mellitus) ([facility]) DM (diabetes mellitus) ([facility]) DVT (deep venous thrombosis) ([facility]) ED (erectile dysfunction) Follicular non-Hodgkin's lymphoma ([facility]) GERD (gastroesophageal reflux disease) GERD (gastroesophageal reflux disease) HTN (hypertension) HTN (hypertension) Hyperlipidemia Left bundle branch block 09/11/2020 Non-ischemic cardiomyopathy (CMS/HCC) (HCC) Presence of cardiac resynchronization therapy defibrillator (VALET PARKING ATTENDANT-D) 01/17/2022 PUD (peptic ulcer disease) Pulmonary embolism [...] giving any additional recommendations. -He is presently [place] Heart Association functional class II, stage C. 2. VALET PARKING ATTENDANT D device in place, monitored regularly by [...] always available urgent or expedient basis. Petra Renetria APRN/MARIIA documented in this [facility]2024 Telephone encounter Note* Telephone Encounter - Coby Martínez RN - 12/22/2023 3:58 PM EDT OV 03/12/23 [facility] [id number] Miscellaneous Notes* Telephone Encounter - Coby Martínez RN - 12/22/2023 3:58 PM EDT OV 03/12/23 documented in this [facility]05-31-2024 Telephone encounter Note* Telephone Encounter - Dnaia Mcknight RN - 12/19/2023 1:52 PM EDT RBC 03/12/23 Results Test Name Value Interpretation Reference Range Facility Basic Metabolic Profile (BMP) on 12-02-2023 BUN/CRE 16.8 RATIO Normal 10-20 [facility] Comment on above: Performed By: #### L501.080 #### [facility] [address] [place], [address] CA,Total 8.7 mg/dL Normal 8.5-10.1 [facility] Comment on above: Performed By: #### L501.080 #### [facility] [address] [place], [address] Chloride [Moles/Vol] 111 mmol/L High 98-107 [facility] Comment on above: Performed By: #### L501.080 #### [facility] [address] [place], [address] CO2 [Moles/Vol] 26.0 mmol/L Normal 21.0-32.0 [facility] Comment on above: Performed By: #### L501.080 #### [facility] [address] [place], [address] Creatinine [Mass/Vol] 2.32 mg/dL High 0.70-1.30 [facility] Comment on above: Result Comment: The validity of the calculated GFR GFRAA in patients over 70 years has not been determined. Clinical correlation is essential. Performed By: #### L501.080 #### [facility] [address] [place], [address] ECRCL 25.36 ml/min Normal [facility] Comment on above: Performed By: #### L501.080 #### [facility] [address] [place], [address] EST GFR - AA 35 mL/min Low >60 [facility] Comment on above: Result Comment: GFR Calc Performed By: #### L501.080 #### [facility] [address] [place], [address] GAP 4 Low 5-15 [facility] Comment on above: Performed By: #### L501.080 #### [facility] [address] [place], [address] GFR/1.73 sq M.predicted among non-blacks MDRD (S/P/Bld) [Vol rate/Area] 29 mL/min/ Low >60 [facility] Comment on above: Result Comment: Non- GFR Calc Performed By: #### L501.080 #### [facility] [address] [place], [address] Glucose [Mass/Vol] 56 mg/dL Low 74-106 [facility] Comment on above: Performed By: #### L501.080 #### [facility] [address] [place], [address] Potassium [Moles/Vol] 3.9 mmol/L Normal 3.5-5.1 [facility] Comment on above: Performed By: #### L501.080 #### [facility] [address] [place], [address] Sodium [Moles/Vol] 141 mmol/L Normal 136-145 [facility] Comment on above: Performed By: #### L501.080 #### [facility] [address] [place], [address] Urea nitrogen [Mass/Vol] 39 mg/dL High 7-18 [facility] Comment on above: Performed By: #### L501.080 #### [facility] [address] [place], [address] [facility] [id number] Miscellaneous Notes* Telephone Encounter - Dania Mcknight RN - 12/19/2023 1:52 PM EDT RBC 03/12/23 Results Test Name Value Interpretation Reference Range Facility Basic Metabolic Profile (BMP) on 12-02-2023 BUN/CRE 16.8 RATIO Normal 10-20 [facility] Comment on above: Performed By: #### L501.080 #### [facility] [address] [place], [address] CA,Total 8.7 mg/dL Normal 8.5-10.1 [facility] Comment on above: Performed By: #### L501.080 #### [facility] [address] [place], [address] Chloride [Moles/Vol] 111 mmol/L High 98-107 [facility] Comment on above: Performed By: #### L501.080 #### [facility] [address] [place], [address] CO2 [Moles/Vol] 26.0 mmol/L Normal 21.0-32.0 [facility] Comment on above: Performed By: #### L501.080 #### [facility] [address] [place], [address] Creatinine [Mass/Vol] 2.32 mg/dL High 0.70-1.30 [facility] Comment on above: Result Comment: The validity of the calculated GFR GFRAA in patients over 70 years has not been determined. Clinical correlation is essential. Performed By: #### L501.080 #### [facility] [address] [place], [address] ECRCL 25.36 ml/min Normal [facility] Comment on above: Performed By: #### L501.080 #### [facility] [address] [place], [address] EST GFR - AA 35 mL/min Low >60 [facility] Comment on above: Result Comment: GFR Calc Performed By: #### L501.080 #### [facility] [address] [place], [address] GAP 4 Low 5-15 [facility] Comment on above: Performed By: #### L501.080 #### [facility] [address] [place], [address] GFR/1.73 sq M.predicted among non-blacks MDRD (S/P/Bld) [Vol rate/Area] 29 mL/min/ Low >60 [facility] Comment on above: Result Comment: Non- GFR Calc Performed By: #### L501.080 #### [facility] [address] [place], [address] Glucose [Mass/Vol] 56 mg/dL Low 74-106 [facility] Comment on above: Performed By: #### L501.080 #### [facility] [address] [place], [address] Potassium [Moles/Vol] 3.9 mmol/L Normal 3.5-5.1 [facility] Comment on above: Performed By: #### L501.080 #### [facility] [address] [place], [address] Sodium [Moles/Vol] 141 mmol/L Normal 136-145 [facility] Comment on above: Performed By: #### L501.080 #### [facility] [address] [place], [address] Urea nitrogen [Mass/Vol] 39 mg/dL High 7-18 [facility] Comment on above: Performed By: #### L501.080 #### [facility] [address] [place], [address] documented in this [facility]11-22-2023 Telephone encounter Note* Telephone Encounter - Dania Mcknight RN - 06/11/2023 3:30 PM EST PC to patient. LMOM with OSCAR recommendations. I asked for a call back to further discuss. [facility] [id number] Miscellaneous Notes* Telephone Encounter - Dania Mcknight RN - 06/11/2023 3:30 PM EST PC to patient. LMOM with OSCAR recommendations. I asked for a call back to further discuss. * Telephone Encounter - Dania Mcknight RN - 06/11/2023 2:35 PM EST RBC 03/12/23 BMP 09/10/22 documented in this encounterSMercy Health [facility] [id number] Telephone encounter Note* Telephone Encounter - Dania Mcknight RN - 06/11/2023 2:35 PM EST RBC 03/12/23 BMP 09/10/22 [facility] [id number] Miscellaneous Notes* Telephone Encounter - Anali Moore - 05/12/2023 2:49 PM EDT Not our pt please refuse and close. Anali Moore documented in [facility]Prem[facility] History of Present illness Narrative* Ralph Roth MD - 03/12/2023 9:00 AM EDT Images from the original note were not included. [facility] [address] [facility] [address] Dept: [phone] Dept Loc: [phone] DATE of SERVICE:03/12/23 TIME of SERVICE: 8:47 [...] (heart failure with reduced ejection fraction) (CMS/HCC) ([facility]) 09/22/2020 Bladder cancer (HCC) CHF (congestive heart failure) (CMS/HCC) ([facility]) Chronic HFrEF (heart failure with reduced ejection fraction) (CMS/HCC) ([facility]) 09/21/2020 Chronic kidney disease DM (diabetes mellitus) (HCC) DM (diabetes mellitus) ([facility]) DVT (deep venous thrombosis) ([facility]) ED (erectile dysfunction) Follicular non-Hodgkin's lymphoma (HCC) GERD (gastroesophageal reflux disease) GERD (gastroesophageal reflux disease) HTN (hypertension) HTN (hypertension) Hyperlipidemia Left bundle branch block 09/11/2020 Non-ischemic cardiomyopathy (CMS/HCC) (HCC) Presence of cardiac resynchronization therapy defibrillator ([employer]ARKING ATTENDANT-D) 01/17/2022 PUD (peptic ulcer disease) Pulmonary embolism [...] heart failure is compensated, I would estimate [place] Heart Association class II, stage C, warm [...] get relief of pain from home care physical therapist or acupuncture. If he wants to pursue those, thatis reasonable. We need to avoid opioids and NSAIDs. Educationally, reviewed all this with him and we will see him back in 6 months with one of our nurse practitioners or physician assistants and withme in a year. documented in this encounterSMercy Health [facility] HospitalKwkxff01-27-0108 Miscellaneous Notes* Telephone Encounter - Brinda Bourne [...] and advise. Anali Moore documented in this [facility]Prem[facility]08-16-2023 Telephone encounter Note * Telephone Encounter - [...] 03-04-2023 Cholesterol [Mass/Vol] 287 mg/dL High 200 [facility] Comment on above: Result Comment: <200 mg/dL Desirable 200-240 mg/dL Borderline >240 mg/dL High Risk Performed By: #### L500.2500, L500.4100 #### [facility] [address] [place], [address] Cholesterol in HDL [Mass/Vol] 27 mg/dL Low [facility] Comment on above: Result Comment: The drugs N-Acetylcysteine and Metamizole may falsely depress this assay. Reference Range HDL <40 mg/dL Low HDL Cholesterol HDL >or= 60 mg/dL High HDL Cholesterol Performed By: #### L500.2500, L500.4100 #### [facility] [address] [place], [address] LDL TNP Normal 0-130 [facility] Comment on above: Performed By: #### L500.2500, L500.4100 #### [facility] [address] [place], [address] Triglyceride [Mass/Vol] 576 mg/dL High [facility] Comment on above: Result Comment: The drugs N-Acetylcysteine and Metamizole may falsely depress this assay. TRIGLYCERIDE IS GREATER THAN 400 mg/dL. LDL RESULT IS INVALID AND WILL NOT BE REPORTED. Serum Triglycerides Reference Interval Normal <150 mg/dL Borderline high 150 - 199 mg/dL High 200 - 499 mg/dL Very High > or = 500 mg/dL Performed By: #### L500.2500, L500.4100 #### [facility] [address] [place], [address] VLDL TNP Normal 5-40 [facility] Comment on above: Performed By: #### L500.2500, L500.4100 #### [facility] [address] [place], [address] [facility] [id number] Miscellaneous Notes* Telephone Encounter - Dania Mcknight [...] 03-04-2023 Cholesterol [Mass/Vol] 287 mg/dL High 200 [facility] Comment on above: Result Comment: <200 mg/dL Desirable 200-240 mg/dL Borderline >240 mg/dL High Risk Performed By: #### L500.2500, L500.4100 #### [facility] [address] [place], [address] Cholesterol in HDL [Mass/Vol] 27 mg/dL Low [facility] Comment on above: Result Comment: The drugs N-Acetylcysteine and Metamizole may falsely depress this assay. Reference Range HDL <40 mg/dL Low HDL Cholesterol HDL >or= 60 mg/dL High HDL Cholesterol Performed By: #### L500.2500, L500.4100 #### [facility] [address] [place], [address] LDL TNP Normal 0-130 [facility] Comment on above: Performed By: #### L500.2500, L500.4100 #### [facility] [address] [place], [address] Triglyceride [Mass/Vol] 576 mg/dL High [facility] Comment on above: Result Comment: The drugs N-Acetylcysteine and Metamizole may falsely depress this assay. TRIGLYCERIDE IS GREATER THAN 400 mg/dL. LDL RESULT IS INVALID AND WILL NOT BE REPORTED. Serum Triglycerides Reference Interval Normal <150 mg/dL Borderline high 150 - 199 mg/dL High 200 - 499 mg/dL Very High > or = 500 mg/dL Performed By: #### L500.2500, L500.4100 #### [facility] [address] [facility] [place], [address] VLDL TNP Normal 5-40 [facility] Comment on above: Performed By: #### L500.2500, L500.4100 #### [facility] [address] [place], [address] * Telephone Encounter - Marley Kc - [...] stop it, thank you documented in this [facility]08-16-2023 Telephone encounter Note* Telephone Encounter - Marley Kc - 03/05/2023 11:39 AM EDT PT has questions regarding restarting Rosuvastatin [facility] [id number] History of Present illness Narrative* Petra Renteria APRN - MARIIA - 09/10/2022 9:00 AM EST Images from the original note were not included. [facility] Cardiology Office Note DATE of SERVICE: 09/10/22 [...] (heart failure with reduced ejection fraction) (CMS/HCC) ([facility]) 09/22/2020 Bladder cancer (CMS/HCC) ([facility]) CHF (congestive heart failure) (CMS/HCC) ([facility]) Chronic HFrEF (heart failure with reduced ejection fraction) (CMS/HCC) ([facility]) 09/21/2020 Chronic kidney disease DM (diabetes mellitus) ([facility]) DM (diabetes mellitus) ([facility]) DVT (deep venous thrombosis) ([facility]) ED (erectile dysfunction) Follicular non-Hodgkin's lymphoma (CMS/HCC) ([facility]) GERD (gastroesophageal reflux disease) GERD (gastroesophageal reflux disease) HTN (hypertension) HTN (hypertension) Hyperlipidemia Left bundle branch block 09/11/2020 Non-ischemic cardiomyopathy (CMS/HCC) ([facility]) Presence of cardiac resynchronization therapy defibrillator ([employer]ARKING ATTENDANT-D) 01/17/2022 PUD (peptic ulcer disease) Pulmonary embolism ([facility]) Pulmonary fibrosis ([facility]) Rosacea Stage 3b chronic kidney disease ([facility]) 09/21/2020 Tachycardia Past Surgical History Past Surgical [...] and Plan: 1. Nonischemic cardiomyopathy-presently well compensated, [place] Heart Association functional class II, stage C [...] needed. Petra Renteria APRN/MARIIA documented in this [facility]02-03-2023 Telephone encounter Note* Telephone Encounter - Dania [...] recommendations and reminder about f/u appt 09/10. [facility]02-02-2023 Telephone encounter Note* Telephone Encounter - Dania [...] Will D/W RBC about trial off statin. [facility]02-01-2023 Telephone encounter Note* Telephone Encounter - Ralph Roth MD - 08/21/2022 7:02 PM EST Please call and see if he is still on spironolactone. If he is, please have him stop it, thank you [facility]12-27-2022 Telephone encounter Note* Telephone Encounter - Dania Mcknight RN - 07/16/2022 11:04 AM EST PC to patient. LMOM to call office. [facility]12-27-2022 Miscellaneous Notes* Telephone Encounter - Dania Mcknight [...] legs to be weak? documented in this encounterSMercy [facility] HospitalJegavn91-45-0403 Telephone encounter Note* Telephone Encounter - Dania Mcknight RN - 07/11/2022 2:42 PM EST PC to pt. LMOM to call office. [facility] HospitalBevgbs70-68-1599 Telephone encounter Note* Telephone Encounter - Marley Kc - 07/11/2022 1:03 PM EST Patient asking if any of his medications would cause his legs to be weak? [facility] HospitalAldbxs62-02-1027 NoteHospitalist Discharge Summary Megan Nascimento : 1940 [...] Medications: Azam Megan Higuera Home Medication Instructions APOORVA:[id number] Printed on:05/21/21 2503 Medication Information albuterol (PROVENTIL) (2.5 MG/3ML) 0.083% [...] daily Recommended Follow-up: MD [address] [facility] [address] [facility] [id number] In 1 week post hospital fu appt heel pricker In 2 weeks post hospital fu appt Readmission Risk Risk of Unplanned (more content not included)...[facility]07-15-2021 NoteHospitalist Discharge Summary Megan Nascimento : [...] acute/chronic cholecystitis. Seen by gen surgery and heel pricker and not candidate for lap/dinah given cardiac [...] Discharge Medications: Megan Nascimento Home Medication Instructions APOORVA:[id number] Printed on:02/01/21 1235 Medication Information albuterol (PROVENTIL) [...] vitamin B-12 (CYANOCOBALAMIN) 10 (more content not included)...[facility]03-09-2021 NoteName: Megan Nascimento Date of : [...] Nascimento was admitted from the office to [facility] for increasing weakness, fatigue, exertional dyspnea and a wet cough. He had 3-4+ bilateral lower extremity edema up to his hips and an 8 lb weight gain since his recent hospital discharge for elective [employer] PARKING ATTENDANT-D. He was IV diuresed and transitioned back [...] Discharge Medications: Megan Nascimento Home Medication Instructions APOORVA:[id number] Printed on:09/26/20 1012 Medication Information albuterol (PROVENTIL) [...] mg by mouth ngoc (more content not included)...[facility] Discharge summary Author Shaun Taveras [facility] November 27, 2023 8:41am Note Date/Time November 27, 2023 7:55am [facility] Department [address] [place] [address] Emergency Department Summary 11/27/23 MR#: [id number] Acct: [id number] Name: MEGAN NASCIMENTO Rep #:[id number] : [...] was brought to the hospital for evaluation [facility] Medical History Anticoagulant-induced bleeding Benign positional [...] PO DAILY 06/28/21 [History Last Taken Unknown] gbjfzhpsnidk-imm-cvdrd acid-vit K-lycop 400 mcg-20 mcg-370 mcg tablet [...] 90.4 H Lymph % (Auto) 2.1 L [place] % (Auto) 4.0 Eos % (Auto) 0.4 [...] Clarity Clear Urine pH 5.0 Ur Specific [place] 1.015 Urine Protein Negative Urine Glucose (UA) [...] Orders Clinical Impression: Generalized weakness, Leukocytosis, Rhabdomyolysis, Iyhca-tw-lijgiag kidney injury Prescriptions: No Action sucralfate 100 [...] Provider] - Disposition Disposition: Acute Care Hospital [facility] What to do if you have Problems For any increased pain, shortness of breath, bleeding, nausea or vomiting, chestpain, or any unexpected problems, contact your Primary Care Provider. Call [facility] ([phone]) or report to the closest Emergency Room. Call 911 if necessary. 11/27/23 0841 <Electronically signed by Shaun Taveras DO> Cosigner Signature (if applicable): CC: Dr. Rigoberto Durand MD ~ Signed [facility] Work Phone: Evaluation note* Diagnosis Onset Date Resolution Status GI bleed acute MIAU (minor aphthous ulceration) acute Congestive heart failure acu te GI bleed acute Orthostatic hypotension reso lved Upper GI bleed resolved Acid reflux acute Constipation acute GI bleed acute [facility] Work Phone: Evaluation note* Diagnosis Onset Date Resolution Status Acid reflux acute Constipation acute [facility] Work Phone: Evaluation note* Diagnosis Onset Date Resolution Status Acid reflux chronic Constipation chronic Acid reflux chronic Constipation chronic GI bleed resolved [facility] Work Phone: Evaluation note* Diagnosis Chronic systolic (congestive) heart failure (HCC) Chronic HFrEF (heart failure with reduced ejection fraction) ([facility]) documented in this encounter [facility] Work Phone: Evaluation note* Diagnosis Onset Date Resolution Status Acid reflux chronic Constipation chronic GI bleed resolved Spinal stenosis of lumbar region with radiculopathy acute [facility] Work Phone: Evaluation noteNo assessment information available [facility] Work Phone: Evaluation note* Diagnosis Hyperlipidemia, unspecified hyperlipidemia type Encounter for adjustment or management of cardiac device documented in this encounter [facility] [employer] note* Diagnosis Acute HFrEF (heart failure with reduced ejection fraction) ([facility]) Encounter for adjustment or management of cardiac device documented in this encounter [facility] [employer] note* Diagnosis Acute HFrEF (heart failure with reduced ejection fraction) ([facility]) documented in this encounter [facility] [employer] note* Diagnosis Erectile dysfunction, unspecified erectile dysfunction type documented in this encounter [facility] [employer] note* Diagnosis Non-ischemic cardiomyopathy (CMS/HCC) ([facility])- Primary Other primary cardiomyopathies Primary hypertension Unspecified essential hypertension Acute HFrEF (heart failure with reduced ejection fraction) ([facility]) ICD (implantable cardioverter-defibrillator), biventricular, in situ Other iron deficiency anemia documented in this encounter [facility] [employer] note* Diagnosis Chronic HFrEF (heart failure with reduced ejection fraction) ([facility]) Encounter for adjustment or management of cardiac device Encounter for adjustment or management of cardiac device documented in this encounter [facility] note* Diagnosis Acute HFrEF (heart failure with reduced ejection fraction) ([facility]) Encounter for adjustment or management of cardiac device documented in this encounter [facility] note* Diagnosis Erectile dysfunction, unspecified erectile dysfunction type Encounter for adjustment or management of cardiac device [facility] Diagnosis Acute HFrEF (heart failure with reduced ejection fraction) (CMS/HCC) (HCC)- Primary Presence of cardiac resynchronization therapy defibrillator (VALET PARKING ATTENDANT-D) Non-ischemic cardiomyopathy (CMS/HCC) (HCC) Other primary cardiomyopathies Encounter for adjustment or management of cardiac device [facility] Diagnosis Chronic HFrEF (heart failure with reduced ejection fraction) (HCC)- Primary Encounter for adjustment or management of cardiac device [facility] Diagnosis Acute HFrEF (heart failure with reduced ejection fraction) (HCC) Encounter for adjustment or management of cardiac device [facility] Diagnosis Primary hypertension- Primary Unspecified essential hypertension Acute systolic heart failure (HCC) Acute systolic heart failure Acute on chronic clinical systolic heart failure (HCC) Encounter for adjustment or management of cardiac device [facility]* Diagnosis Acute systolic congestive heart failure (HCC)- Primary Bilateral leg edema Edema Acute systolic congestive heart failure (HCC) Chronic kidney disease, unspecified CKD stage AICD (automatic cardioverter/defibrillator) present Automatic implantable cardiac defibrillator in situ Presence of cardiac resynchronization therapy defibrillator (VALET PARKING ATTENDANT-D) HTN (hypertension) Unspecified essential hypertension Follicular non-Hodgkin's lymphoma (HCC) Encounter for adjustment or management of cardiac device [facility]* Diagnosis Cellulitis- Primary Cellulitis and abscess of unspecified site Cellulitis of lower extremity, unspecified laterality Acute HFrEF (heart failure with reduced ejection fraction) (HCC) Cellulitis of lower extremity, unspecified laterality Encounter for adjustment or management of cardiac device [facility]* Diagnosis Non-ischemic cardiomyopathy (CMS/HCC) (HCC)- Primary Other primary cardiomyopathies Acute HFrEF (heart failure with reduced ejection fraction) (HCC) ICD (implantable cardioverter-defibrillator), biventricular, in situ Encounter for adjustment or management of cardiac device [facility]* Diagnosis Chronic HFrEF (heart failure with reduced ejection fraction) (HCC) Encounter for adjustment or management of cardiac device documented in this encounter [facility] Discharge instructions Additional Instructions Follow-up with your PCP and return for any other concerns.[facility] Work Phone: Hospital Discharge instructionsAdditional Instructions Follow-up with your doctors in outpatient setting. Return with worsening symptoms or any other concerns. Have your kota removed in approximately 5 days by your primary care physician. Showed them the CT results that were printed off for your records.[facility] Work Phone: Reason for referral (narrative)No reason for referral information availableWCrystal Clinic [facility] Work Phone: History of Present Illness * [...] but does still has some tenderness around VALET PARKING ATTENDANT-P site. Denies dizziness or feeling lightheaded. SCHEDULED [...] be in ADHF with volume overload after VALET PARKING ATTENDANT-D placement - Diuresing with lasix gtt at [...] restriction, 2gm Na diet #LBBB POD#3 s/p VALET PARKING ATTENDANT-D by Dr. Gates - Placed 09/11/20 - [...] - Follows with Dr. Anirudh Arshad with [facility] - Continue flomax - Renal u/s to r/o hydro #Iron def anemia - PO iron Attempted to call Zuleyka Nascimento per patient's request to update on plan of care. Left VM and will try again tomorrow. Seen and discussed with Dr. Lindsey [facility] Heart Failure Program [address] [place] [address] Office: [phone] * Mackenzie Bridges MD - 09/14/2020 5:42 [...] K chloride given. BMP recheck at noon. Inter Com Installer, PGY-6 Pager [phone] * Natan Vicente MD - 09/13/2020 2:12 PM EST CARDIOLOGY PROGRESS NOTE Chart and interval events reviewed. Reason for Visit Megan Nascimento is a 80 y.o. 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 // HFrEF/NI-DCM (EF 14%), Stage C, FC III with decompensation - s/p VALET PARKING ATTENDANT-D for LBBB // Transient hypotension - possibly [...] at 2:20 PM Associated attestation - Lisa Lindsey MD - 09/13/2020 3:53 PM EST I, [...] Nascimento is an 80 yo M s/p VALET PARKING ATTENDANT-D for HFrEF (LVEF 14%), LBBB, had transient [...] of Cardiovascular Disease, Division of Heart Failure [facility] [place] 3:48 PM 09/13/20 * Jaylin Irvin DTR - 09/13/2020 10:01 AM EST Nutrition rescreen completed. Chart reviewed. Patient to be monitored and followed by the diet hvac maintenance technician. \ * Gibson Dugan APRN - PEARLER - 09/13/2020 7:50 AM EST CARDIOLOGY PROGRESS NOTE Chart and interval events reviewed. Reason for Visit s/p VALET PARKING ATTENDANT-D SUBJECTIVE: Megan Nascimento states left shoulder pain [...] Chronic Systolic Heart Failure: LBBB: Status post VALET PARKING ATTENDANT-D implant 09/11/[address] Gates. HF team [...] interval events reviewed. Reason for Visit s/p VALET PARKING ATTENDANT-D SUBJECTIVE: Megan Higuera Azam states soreness at [...] Class III. S/p [facility] Compatible VALET PARKING ATTENDANT-D Implant. Device teaching done and booklet given. [...] year old with HFrEF, BiV failure, sp VALET PARKING ATTENDANT-D yesterday had transient hypotension overnight. - Patient's [...] Dr. Les Kinney who is in agreement. Inter Com Installer, PGY-6 Pager [phone] * Rena Lagos RPH - 09/11/2020 5:56 PM EST Megan Nascimento was ordered CoQ-10. Per [facility] Policy #4005, herbals and certain dietary supplements are automatically discontinued for the duration of the hospital stay. The product remains on the Home Medication List for resumption at discharge unless specifically discontinued by the prescriber. If there is a need for acute treatment using this agent, please contact the pharmacy for further assistance. Rena Lagos RPh documented in this encounter* Saira Espinoza, LABORER YARD - 09/26/2020 11:19 AM EST [facility] Respiratory Care Department Progress Note SpO2 [...] medical history significant for NICM HFrEF 14%, VALET PARKING ATTENDANT-D, LBBB, +3 MR/TR, non-Hodgkins lymphoma (s/p chemotherapy), bladder cancer, BPH, PE[facility] ([facility] [place] and CKD. PT HAD on ahtmqdzlo-1-8+ BLLE up to his hips. He is up 8lbs s george discharge. He states that he does abide by a low sodium diet, and the 64 ounce fluid restriction. His main concern is getting his gallbladder out as he has a lot of pain and diarrhea(ef 14%) Malnutrition Assessment: Malnutrition Status: Insufficient data Context: Acute Illness Estimated Daily Nutrient Needs: Energy (kcal): 9904-2115; Weight Used for Energy Requirements: [place] Protein (g): 54- 67; Weight Used for Protein Requirements: [place](.8-1) Fluid (ml/day): Per MD recommendations; Method Used [...] lb (88.5 kg)(standing scale) Usual Body Weight: [place] Body Weight: 148 lbs; % [place] Body Weight 118.9 % BMI: 27.6 Adjusted [...] 10:43 AM EST Occupational Therapy Facility/Department: [facility] Daily Treatment Note NAME: Megan Nascimento [...] included. Hospitalist Progress Note 09/25/2020 10:36 AM [phone]: Please page me ([phone]) for patient care issues. [phone]: Please page IMS night Hospitalist for any [...] non-focal. Assessment 1. HFrEF exacerbation 2. S/p VALET PARKING ATTENDANT-D placement 09/11/20 3. 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 HTN [...] of Hospitalist Medicine Inpatient Medical Services PAGER: [phone] * Ralph Roth MD - 09/25/2020 9:42 [...] Nunez MD - 09/25/2020 5:24 AM EST [facility] Progress Note Subjective/ 80 [...] tablet Oral Daily Petra Renteria APRN - PEARLER 1 tablet at 09/24/20 075 vitamin B-12 (CYANOCOBALAMIN) tablet 1,000 mcg 1,000 mcg Oral Daily CHLOE Ch CNP 1,000 mcg at 09/24/20 075 Vitamin D (CHOLECALCIFEROL) tablet 1,000 Units 1,000 Units Oral Daily Petra Renteria APRN - PEARLER 1,000 Units at 09/24/20 0758 furosemide (LASIX) [...] Nunez MD - 09/24/2020 5:36 PM EST [facility] Progress Note Subjective/ 80 [...] Units 1,000 Units Oral Daily Petra Renteria, FORESTRY AND WILDLIFE MANAGER - [place]ER 1,000 Units at 09/24/20 0758 furosemide (LASIX) [...] 11:57 AM EST Physical Therapy Facility/Department: [facility] Initial Assessment NAME: Megan Nascimento : [...] lymphoma and bladder CA as well as VALET PARKING ATTENDANT-D placement 09/11. Exam: AM-PAC PT Education: PT [...] cane or walker) Transfer Assistance: Independent Active Care Coordination Manager: Yes Mode of Transportation: SUV Cognition Cognition [...] Last cardiac catheterization: 04/2019 No significant disease 09/11/2020-VALET PARKING ATTENDANT-D implant IMPRESSIONS/RECOMMENDATIONS: 1. Heart failure with severely [...] with increased doses of Entresto. 2. Recent VALET PARKING ATTENDANT-D implant 09/11/2020- stable, V-pacing 3. Hypertension- stable/controlled 4. Renal insuffiencey- stable, will continue to closely monitor during IV diuresis. - also followed by Nephrology Electronicallysigned by Petra Renteria APRN - PEARLER on 09/24/2020 at 7:59 AM I, Dr. Jama, personally performed a face to face diagnostic evaluation. I have reviewed the ASSISTANT MERCHANDISER's documentation and edited the clinical findings, assessment, and plan to reflect my own evaluation andmedical decision making. In addition to above, history and exam by me shows pt alert nad rrr lungs clear, edema decreased. The plan is to likely transition off lasix gtt and metolazone in a.m. Replete K+. * Kashmir Nunez MD - 09/23/2020 4:38 PM EST [facility] Progress Note Subjective/ 80 [...] mg/hr Intravenous Continuous Petra Gong APRN - PEARLER 2 mL/hr at 09/22/20 1545 10 mg/hr at 09/22/20 1545 albuterol (PROVENTIL) nebulizer solution 1.25 mg 1.25 mg Nebulization Q6H PRN Mauro Padgett MD 1.25 mg at 09/23/20 1426 sacubitril-valsartan (ENTRESTO) 24-26 MG per tablet 1 tablet 1 tablet Oral BID Petra Renteria APRN - PEARLER 1 tablet at 09/23/20 0906 apixaban (ELIQUIS) tablet 2.5 mg 2.5 mg Oral BID Petra Renteria APRN - PEARLER 2.5 mg at 09/23/20 0908 ferrous sulfate (IRON 325) tablet 325 mg 325 mg Oral BID WC Petra Renteria APRN - MARIIA 325 mg at 09/23/20 0909 metoprolol succinate (TOPROL XL) extended release tablet 100 mg 100 mg Oral Daily Petra Renteria APRN - PEARLER 100 mg at 09/23/20 0906 gabapentin (NEURONTIN) capsule 400 mg 400 mg Oral BID Petra Renteria APRN - PEARLER 400 mg at 09/23/20 0906 tamsulosin (FLOMAX) capsule 0.4 mg 0.4 mg Oral Daily Petra Renteria APRN - PEARLER 0.4 mg at 09/23/20 0909 pantoprazole (PROTONIX) tablet 40 mg 40 mg Oral QAM AC Petra Renteria APRN - PEARLER 40 mg at 09/23/20 0909 therapeutic multivitamin-minerals 1 tablet 1 tablet Oral Daily Petra Renteria APRN - PEARLER 1 tablet at 09/23/20 0907 vitamin B-12 (CYANOCOBALAMIN) tablet 1,000 mcg 1,000 mcg Oral Daily Petra Renteria APRN - PEARLER 1,000 mcg at 09/23/20 0907 Vitamin D (CHOLECALCIFEROL) tablet 1,000 Units 1,000 Units Oral Daily Petra Renteria APRN - PEARLER 1,000 Units at 09/23/20 0908 furosemide (LASIX) [...] lymphoma and bladder CA as well as VALET PARKING ATTENDANT-D placement 09/11. Exam: [facility] Assistance / Modification: SBA OT Education: OT [...] cane or walker) Transfer Assistance: Independent Active Care Coordination Manager: Yes Mode of Transportation: [facility] Objective Vision: Within Functional Limits Vision Exceptions: [...] Last cardiac catheterization: 04/2019 No significant disease 09/11/2020-VALET PARKING ATTENDANT-D implant IMPRESSIONS/RECOMMENDATIONS: 1. Heart failure with reduced EF exacerbation- good diuresis overnight - neg 1,650 overnight - Lasix drip continues, metolazone 5 mg daily - Toprol 100 mg daily and Entresto 24/26 mg 1 tab twice daily. Pt has a hx of hypotension with increased doses of Entresto. 2. Recent VALET PARKING ATTENDANT-D implant 09/11/2020- stable, V-pacing 3. Hypertension- stable/controlled 4. Renal insuffiencey- Creatinine is mildly elevated compared to baseline. Continue to monitor during IV diuresis -Nephrology also consulted Electronicallysigned by Petra Renteria APRN - PEAR[place]ER on 09/23/2020 at 7:47 AM I, Dr. Jama, personally performed a face to face diagnostic evaluation. I have reviewed the ASSISTANT MERCHANDISER's documentation and edited the clinical findings, assessment, [...] chart review, pt limited to 64 ounces/day PVC MONITOR. 2. RD provided written diet education (Cardiac [...] Diet & Heart Failure Nutrition Therapy from [facility]). Attempted to verbally review, however, pt very fatigued, falling asleep multiple times during instruction. RD to re-attempt diet education closer to discharge date if a ppropriate. Malnutrition Assessment: Malnutrition Status: Insufficient data Context: Acute Illness Estimated Daily Nutrient Needs: Energy (kcal): 4410-7368; Weight Used for Energy Requirements: [place] Protein (g): 67-80; Weight Used for Protein Requirements: [place](1.0-1.2 g/kg) Fluid (ml/day): Per MD recommendations Nutrition [...] kg) Usual Body Weight: Appears around 182#-187# [place] Body Weight: 148 lbs; % [place] Body Weight 131.8 % BMI: 30.5 Adjusted [...] Contact: [phone] * Petra Renteria APRN - PEARLER - 09/22/2020 8:06 AM EST CARDIOLOGY PROGRESS [...] Last cardiac catheterization: 04/2019 No significant disease 09/11/2020-VALET PARKING ATTENDANT-D implant IMPRESSIONS/RECOMMENDATIONS: 1. Heart failure with reduced EF exacerbation- decompensated - [place] [employer] Functional Class - 3, stage D - IV lasix 80 mg twice daily continues- will monitor daily weights, intake and output - Entresto 24/26 mg 1 tab twice daily and Toprol XL 100 mg daily continues. 2. Recent VALET PARKING ATTENDANT-D implant 09/11/2020 -noted first device check scheduled [...] FoundDocuments on File Type Date Recorded Patient Oxyhydrogen Welder Expl anation ACP-Advance Directive ACP-Power of Life Scientist Documents on File Type Date Recorded Patient Oxyhydrogen Welder Expl anation ACP-Advance Directive ACP-Power of Life Scientist Latest Code Status on File Code Status Date Activated Date Inactivated Comments Full Code 09/11/2020 5:51 PM Full Code 09/11/2020 11:11 AM 09/11/2020 5:51 PM Latest Code Status on File Code Status Date Activated Date Inactivated Comments Full Code 09/11/2020 5:51 PM 09/15/2020 7:16 PM Advance Directive Response Recorded Date/ Time Living Will No August 20 10:36pm Power of Life Scientist Yes August 20, 2021 10:36pm Latest Code Status on File Code Status Date Activated Date Inactivated Comments Full Code 05/13/2021 10:55 PM 05/21/2021 5:56 PM Full Code 01/30/2021 4:10 PM 02/01/2021 4:49 PM Full Code 09/11/2020 5:51 PM 09/15/2020 7:16 PM Full Code 09/11/2020 11:11 AM 09/11/2020 5:51 PM Advance Directive Response Recorded Date/ Time Living Will No August 20 9:36pm Power of Life Scientist Yes August 20, 2021 9:36pm Advance Directive Response Recorded Date/ Time Living Will No November 27, 2023 4: 43am Power of Life Scientist No November 27, 2023 4:43am Advance Directive Response Recorded Date/ Time Do you have a Healthcare Power of Life Scientist? Yes December 12, 2024 11:46am Date Activated Date Inactivated Comments 01/29/2025 2:17 PM 02/01/2025 8:33 PM Date Activated Date Inactivated Comments 02/10/2025 6:22 AM 02/15/2025 6:29 PM Date Activated Date Inactivated Comments 01/29/2025 2:17 PM 02/01/2025 8:33 PM Advance Directive Response Recorded Date/ Time Do you have a Healthcare Power of Life Scientist? Yes December 12, 2024 11:46am Do you have a Healthcare Power of Life Scientist? No April 01, 2025 12:38pm Reason for [...] Echo 2D Doppler Color Ralph Roth MD [address] [place] [id number] Specialty Diagnoses / Procedures Referred By Juan t Referred To Contact Cardiology Diagnoses Chronic HFrEF (heart failure with reduced ejection fraction) (HCC) Procedures Echo 2D Doppler Color Ruddy Gates MD [address] [place] [id number] Referral ID Status Reason Start Date Expiration Date Visits Re quested Visits Authorized [id number] Closed 02/16/2022 07/21/2022 1 1 Discharge Instructions [...] sent through Care Everywhere. * Abdominal Pain (Georgian) documented in this encounter* Discharge Instr - Lab* Maria Antonia Mcmullen RN - 09/15/2020 1:12 PM EST Your physician has ordered skilled home care services for you. Your home care will be provided by: [facility] [phone] * Additional Instructions* Marcela Henson, FORESTRY AND WILDLIFE MANAGER - PEARLER - 09/11/2020 Internal Cardioverter Defibrillator [place] [...] in CPR. Call the Device Clinic at [phone] if you have any questions regarding your incision, defibrillator, or follow-up appointments. Call the Device Clinic at [phone] if you have signs of a rapid heart rhythm, if you hear a beeping tone or vibration from your defibrillator. Call the Device Clinic at [phone] or your physician if you experience a [...] from the original note were not included. [facility]FERENCE TOOL Discharge Date: 09/26/20 Patient Name: Megan Nascimento Support Person/ Primary Emergency Contact: Azam Zuleyka Diagnosis: Acute on chronic clinical systolic heart failure ([facility]) [I50.23] Acute HFrEF (heart failure with reduced ejection fraction) ([facility]) [I50.21] Self monitoring: Weigh yourself daily. Perform [...] your medicine. Do not take any vitamins, ggec-vpr-fyroqkb medicine, or herbal products without talking to [...] Where can you learn more? Go to [email or web address] and sign in to your Bluenote account. Enter E597 in the Search Health Information box to learn more about Heart Failure: Care Instructions. If you do not have an account, please click on the Sign Up Now link. Current as of: July 05, 2019 Content Version: 12.6 [employer]. Care instructions adapted under license by [employer]. If you have questions about a medical condition or this instruction, always ask your healthcare professional. [employer] disclaims any warranty or liability for your use of this information. Activity and Exercise: Walk every day. Start with 5 minutes a day. Slowly increase to a goal (ie. 10-30 minutes a day). Remember to rest when tired. Follow Up Appointments: Please bring Photo ID, Insurance Cards, and a Current List of Medications to your appointments. Wood Engraver: Petra PALMERPEARLER @ [address] [place] [address], [address], [place] [address] Appointment: 10/05/2020 9AM Primary Care: RIGOBERTO DURAND MD Appointment: 10/05/2020 @ 10:10 AM Address: [address] , [address] [place] [address] 24 - 72 HR Post Discharge Call: [...] ANY QUESTIONS, CALL THE UNIT (HICU) AT [phone] documented in this encounter Hospital Course * Lisa Lindsey MD - 09/15/2020 10:56 AM EST [facility] Cardiology Service--Heart Failure Discharge Note Name: Megan Nascimento Date of : 1940 Date of Service: 09/15/20 Time of Service: 2:45 PM Date of Admission: 09/11/2020 Date of Discharge: 09/15/2020 Admitting Physician: Ruddy Gates MD Discharge Attending: Lisa Lindsey MD Primary Care Provider: RIGOBERTO DURAND MD Consultants: RON Reason for Admission VALET PARKING ATTENDANT-D placement Hospital Admission ProblemList: Patient Active Problem [...] be in ADHF with volume overload after VALET PARKING ATTENDANT-D placement - Diuresed well with lasix gtt. [...] restriction, 2gm Na diet #LBBB POD#3 s/p VALET PARKING ATTENDANT-D by Dr. Gates - Placed 09/11/20 - [...] - Follows with Dr. Anirudh Arshad with [facility] - Continue flomax - Renal u/s negative for hydronephrosis #Iron def anemia - PO iron Hospital Course Megan Nascimento is a 80 y.o. male (Patient of Dr. 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 After the procedure he was found [...] void successfully prior to leaving. Procedures: S/p VALET PARKING ATTENDANT-D implant on 09/11/[address] Gates Review [...] Discharge Medications Megan Nascimento Home Medication Instructions APOORVA:[id number] Printed on:09/15/20 5704 Medication Information apixaban (ELIQUIS) 2.5 MG TABS [...] 9:30 AM Sia Daniels APRN - MARIIA [facility] 09/21/2020 2:30 PM CHLOE Skinnre NP [facility] 10/02/2020 9:00 AM Leslie Gloria RN [facility] 10/24/2020 11:15 AM Ralph Roth MD [facility] 12/21/2020 3:00 PM Ruddy Gates MD [facility] Quality Indicators NYHA Functional Classification: Class [...] by Mr. Nascimento. If any questions call [facility] Heart Failure Program Clinic or [phone] CHLOE Palma CNP [facility] Heart Failure Program [address] [place] [address] [phone] This note was generated using a voice [...] summary, Megan Nascimento 80 yo M s/p VALET PARKING ATTENDANT-D for HFrEF (LVEF 14%), LBBB, had transient [...] have some improvement in comoing weeks with VALET PARKING ATTENDANT Lisa Lindsey MD Department of Cardiovascular Disease, Division of Heart Failure [facility] [place] 4:53 PM 09/15/20 documented in this encounter* [...] HFrEF (heart failure with reduced ejection fraction) ([facility]) ICD (implantable cardioverter-defibrillator), biventricular, in situ Calculus of gallbladder without cholecystitis without obstruction History of peptic ulcer disease Epigastric pain Stage 3b chronic kidney disease Acute on chronic clinical systolic heart failure (HCC) Acute HFrEF (heart failure with reduced ejection fraction) ([facility]) Procedures: HOSPITAL COURSE : Mr. Nascimento was admitted from the office to [facility] for increasing weakness, fatigue, exertional dyspneaand a wet cough. 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 He was IV diuresed and transitioned back [...] Discharge Medications: Megan Nascimento Home Medication Instructions APOORVA:[id number] Printed on:09/26/20 1012 Medication Information albuterol (PROVENTIL) [...] 10/05/2020 @ 9am If any questions call [facility] office [phone] Total time spent for Discharge time greater [...] Hodgkin's lymphoma and chemotherapy that he received [id number]. He is not on Farxiga at this [...] type Iron malabsorption Ralph Roth MD [address] [facility] [address] [facility] [address] [place] [address] [facility] [address] [place] [address] Reason Comments Fatigue Abdominal Pain Reason Onset [...] .. Moises Adan MD [address] [place] [address] Phone: tel: fax: [facility] Cardiac Progressive Care Unit PCU [address] [place] [phone] Phone: tel: Referral ID Status Reason Start [...] .. Moises Adan MD [address] [place] [address] Phone: tel: fax: [facility] Medical Surgical Unit MSU [address] [place] [address] Phone: tel: Referral ID Status Reason Start [...] section and content) DATE CREATED AUTHOR 06/04/2021 [employer] DATE CREATED AUTHOR AUTHOR'S ORGANIZ ATION 03/22/2022 [facility] [email or web address] DATE CREATED AUTHOR AUTHOR'S ORGANIZ ATION 03/16/2025 [facility] [email or web address] SHS DATE CREATED AUTHOR AUTHOR'S ORGANIZ ATION 04/03/2025 [facility] Goals (unrecognized section and content) Goals [...] Care Teams (unrecognized sec tion and content) Engine Research Engineer Relationship Specialty Start Date End Date Rigoberto [...] MD Primary Care Provider, Attending Provider Active Engine Research Engineer Relationship Specialty Start Date End Date Gibson Roth [address] [place] [phone] PCP - General 09/05/20 Engine Research Engineer Relationship Specialty Start Date End Date Rigoberto Durand MD PCP - General Family Medicine 03/11/13 Engine Research Engineer Relationship Specialty Start Date End Date BrendaGibson raygoza [address] [place] [phone] PCP - General 09/05/20 Team Status: Inactive Member Role Status Dates Dr. Rigoberto Durand MD Primary Care Provider Active Dr. Shaun Taveras DO Emergency Provider Active Engine Research Engineer Relationship Specialty Start Date End Date Gibson Roth [address] [place] [phone] PCP - General 09/05/20 Engine Research Engineer Relationship Specialty Start Date End Date Gibson Roth [address] [place] [address] PCP - General 09/05/20 Engine Research Engineer Relationship Specialty Start Date End Date Gibson Roth [address] [place] [address] PCP - General 09/05/20 Engine Research Engineer Relationship Specialty Start Date End Date Gibson Roth [address] [place] [phone] PCP - General 09/05/20 Engine Research Engineer Relationship Specialty Start Date End Date Gibson Roth [address] [place] [phone] PCP - General 09/05/20 Engine Research Engineer Relationship Specialty Start Date End Date Gibson Roth [address] [place] [phone] PCP - General 09/05/20 Engine Research Engineer Relationship Specialty Start Date End Date Gibson Roth [address] [place] [phone] PCP - General 09/05/20 Team Status: Inactive [...] December 12, 2024 End: December 12, 2024 Engine Research Engineer Relationship Specialty Start Date End Date Gibson Roth [address] [place] [phone] PCP - General 09/05/20 Engine Research Engineer Relationship Specialty Start Date End Date Gibson Roth [address] [place] [phone] PCP - General 09/05/20 Engine Research Engineer Relationship Specialty Start Date End Date Gibson Roth [address] [place] [phone] PCP - General 09/05/20 Jany Bonilla, RN Registered Nurse Sql Server Developer Manager 02/02/25 Engine Research Engineer Relationship Specialty Start Date End Date Gibson Roth [address] [place] [phone] PCP - General 09/05/20 Jany Bonilla, RN Registered Nurse Sql Server Developer Manager 02/02/25 Engine Research Engineer Relationship Specialty Start Date End Date Gibson Roth [address] [place] [phone] PCP - General 09/05/20 Jany Bonilla, RN Registered Nurse Sql Server Developer Manager 02/02/25 Engine Research Engineer Relationship Specialty Start Date End Date Brinda Bourne MD [address] [place] [address] [address] [place] [address] PCP - General Family Medicine 02/17/25 Jany Bonilla, RN Registered Nurse Sql Server Developer Manager 02/02/25 Engine Research Engineer Relationship Specialty Start Date End Date Brinda Bourne MD [address] [place] [address] [address] [place] [address] PCP - General Family Medicine 02/17/25 Jany Bonilla, RN Registered Nurse Sql Server Developer Manager 02/02/25 Engine Research Engineer Relationship Specialty Start Date End Date Brinda Bourne MD [address] [place] [address] [address] [place] [address] PCP - General Family Medicine 02/17/25 Jany Bonilla, RN Registered Nurse Sql Server Developer Manager 02/02/25 Team Status: Active Member Role/Relationship [...] or prosecute any alcohol or drug abuse patient.[facility] the event this information is protected by the Federal Confidentiality of Alcohol and Drug Abuse Patient Records regulations: The Federal rules restrict any use of the information to criminally investigate or prosecute any alcohol or drug abuse patient.[facility] Scheduled Active and Recently Administ ered Medications [...] Fri01/28/25 at 0835 0837 (Given - Provider: Dania Ledesma RN) 0930 (Given - Provider: Aleksandra Adams RN) 1000 (Given - Provider: Randy Cornelius, JAIMIE) furosemide (Lasix) injection 80 mg (CANCELED) 80 mg, IntraVENous, 2 times daily, First dose (after last modification) on Fri01/28/25 at 2100 0837 (Given - Provider: Daina Ledesma, JAIMIE)2000 (Given - Provider: Charisma Kaminski [...] Fri01/28/25 at 0900 0838 (Given - Provider: Danai Ledesma RN) 0930 (Given - Provider: Aleksandra [...] Comment: [phone] (Not Given - Provider: Micah Devries RN [...] Amelia Adams RN)2105 (Given - Provider: Shawna Monatlvo RN) 0833 (Given - Provider: Micah Devries [...] BE BASED ON THE PRIMARY CLINICAL RECORDS. [facility] [email or web address], [facility]. provides no warranty or guarantee of the accuracy or completeness of information in this document.
--- NOTE | 2025-04-05 05:55 | ECHOD_ITS ---
Reason For Study Reason For Study: CHF Procedure This was a 2D Doppler, Color Flow transthoracic echocardiogram. Exam performed portable in patient room. Left Ventricle Normal size and thickness. Severe global LV systolic dysfunction. Estimated LVEF 10%. Stage I diastolic dysfunction. Right Ventricle Normal right ventricle. ICD or pacer leads identified within the right ventricle. Atria There is severe biatrial dilatation. Mitral Valve Mild (1+) mitral valve insufficiency. Tricuspid Valve Severe (4+) tricuspid valve insufficiency. 35. Aortic Valve Mildly calcified aortic valve. Mild aortic valve stenosis. Mild aortic valve regurgitation. Pulmonic Valve The pulmonic valve is not well visualized. Trivial pulmonic valve insufficiency. Great Vessels Mildly dilated aortic root. Pericardium/Pleural No pericardial effusion. Moderate left pleural effusion. MMode/2D Measurements & Calculations LVIDd: 5.3 cm IVSd: 1.1 cm LVOT diam: 2.1 cm LVIDs: 4.8 cm LVPWd: 0.88 cm LVOT area: 3.3 cm2 RVDd: 5.2 cm FS: 10.0 % Ao root diam: 4.2 cm LAV(MOD-bp): 62.4 ml LVAd ap4: 39.3 cm2 LA dimension: 4.9 cm LAV(MOD-bp) Indexed: 32.4 ml/m2 LVLd ap4: 8.4 cm LAV(MOD-sp2): 65.4 ml EDV(MOD-sp4): 148.0 ml LAV(MOD-sp4): 61.1 ml EDV(sp4-el): 155.6 ml LVAs ap4: 33.2 cm2 LVLs ap4: 7.7 cm ESV(MOD-sp4): 117.0 ml ESV(sp4-el): 121.2 ml EF(MOD-sp4): 20.9 % EF(sp4-el): 22.1 % SV(MOD-sp4): 30.9 ml SV(sp4-el): 34.4 ml LA A4 area: 22.6 cm2 SI(MOD-sp4): 16.1 ml/m2 LA dimension(2D): 4.8 cm RA A4 area: 32.0 cm2 TAPSE: 1.3 cm Time Measurements MV dec time: 0.27 sec Doppler Measurements & Calculations MV E max martin: 51.1 cm/sec Lat Peak E' Martin: 7.2 cm/sec Med Peak E' Martin: 2.9 cm/sec MV A max martin: 63.7 cm/sec E/E' lat: 7.1 E/E' med: 17.5 MV E/A: 0.80 Ao V2 max: 139.6 cm/sec AI max martin: 296.8 cm/sec MV dec slope: 192.3 cm/sec2 Ao max P.8 mmHg AI max P.2 mmHg Ao V2 mean: 92.7 cm/sec Ao mean P.1 mmHg AI dec slope: 155.3 cm/sec2 Ao V2 VTI: 30.5 cm AI P1/2t: 559.6 msec AV (velocity ratio): 0.69 BRITTA(I,D): 2.3 cm2 BRITTA(V,D): 2.4 cm2 LV V1 max: 100.3 cm/sec SV(LVOT): 70.3 ml PA V2 max: 60.8 cm/sec LV V1 max P.0 mmHg LV V1 mean P.5 mmHg LV V1 mean: 76.0 cm/sec LV V1 VTI: 21.1 cm PI end-d martin: 70.1 cm/sec TR max martin: 221.8 cm/sec TR max P.0 mmHg ECHO/Echo Complete Interpretation Summary Severe global LV systolic dysfunction. Estimated LVEF 10%. Stage I diastolic dy sfunction. There is severe biatrial dilatation. Mild (1+) mitral valve insufficiency. Severe (4+) tricuspid valve insufficiency. Mildly calcified aortic valve. Mild aortic valve stenosis. Mild aortic valve re gurgitation. Mildly dilated aortic root. Moderate left pleural effusion. Ordering Physician: Joseph Durand Referring Physician: Joseph Brandt Performed By: Julia Cordova RDCS, RVT
[2025-04-05 07:12] LABS: Hematocrit 46.3 % (40-54); Hemoglobin 15.5 g/dL (13.0-16.5); Immature Granulocytes Count 0.020 X10^3/uL (0.0-0.0); Mean Corp Hgb Conc 33.5 g/dL (32-36); Mean Corpuscular Volume 86.7 fL (80-94); Mean Platelet Vol. 10.6 fl (6.2-12.0); NRBC Flagged by Analyzer 0 % (0-5); POSITIVE MORPHOLOGY YES; Platelet Count 159 K/mm3 (150-450); RBC Distribution Width CV 20.6 % (11.6-14.6); RBC Distribution Width SD 62.0 fl (35.1-43.9); Red Blood Count 5.34 M/mm3 (4.6-6.2); White Blood Count 5.8 K/mm3 (4.4-11.0)
--- NOTE | 2025-04-05 07:33 | PN.HOSP_ITS ---
Reason for Visit Chief Complaint: Fall/generalized weakness Objective Data Objective Data Vital Signs: Vital Signs Temp Pulse Resp BP Pulse Ox O2 Del Method 97.5 F L 60 16 111/67 98 Room Air 04/05/25 03:40 04/05/25 04:50 04/05/25 03:40 04/05/25 03:40 04/05/25 05:00 04/05/25 05:00 Oxygen Delivery Method Room Air Weight: 183 lb 13.848 oz Body Mass Index (BMI) 28.8 Intake & Output: Intake and Output for Last 24 Hours 04/03/25 04/04/25 04/05/25 23:59 23:59 23:59 Intake Total 120 / 120 Balance 120 / 120 Lab / Micro Data 04/05/25 06:07 04/05/25 06:07 Labs: Laboratory Results - last 24 hr 04/05/25 00:25: WBC 6.0, RBC 5.46, Hgb 16.2, Hct 46.9, MCV 85.9, MCH 29.7, MCHC 34.5, RDW Std Deviation 60.8 H, RDW Coeff of Anuradha 20.6 H, Plt Count 194, MPV 11.2, Immature Gran % (Auto) 0.500, Neut % (Auto) 70.4 H, Lymph % (Auto) 14.4 L, [place] % (Auto) 11.2 H, Eos % (Auto) 2.2, Baso % (Auto) 1.3 H, Absolute Neuts (auto) 4.2, Absolute Lymphs (auto) 0.86, Nucleated RBC % 0, Differential Comment SCANNED, Plt Morphology Comment LARGE, Anisocytosis 1+, Ovalocytes RARE, Sodium 141, Potassium 3.7, Chloride 103, Carbon Dioxide 19.6 L, Anion Gap 18 H, BUN 36 H, Creatinine 2.38 H, Estim Creat Clear Calc 23.30 L, Est GFR (MDRD) Non- Af 26 L, BUN/Creatinine Ratio 15.0, Glucose 75, Calcium 9.4, Magnesium 2.0, T otal Creatine Kinase 449 H, [place] II > [address] H, TSH 13.700 H 04/05/25 06:59: POC Glucose 91 Radiography Diagnostic Testing: Radiology Impression Chest X-Ray 04/05/25 00:36 IMPRESSION: Moderate bilateral pleural effusions. Passive atelectatic airspace disease of the lower lobes. Moderate central pulmonary venous congestion. Moderate interstitial pulmonary congestion. AICD is in good position. Enlarged cardiac silhouette. Reading Location: [place] [address] Physical Exam Narrative Seen and examined Patient is getting edematous and dyspnea on exertion for 1-1/2 weeks. Denies chest pain. Physical exam General: Alert, Oriented x3, Cooperative. BMI 28.8 kg/m? HEENT: Atraumatic, PERRLA, EOMI, Normocephalic. Oral: Oral mucosa dry. No Gingival or Mucosal Lesions/ Ulcerations Neck: Supple, No JVD, Negative Carotid Bruits Chest wall/Lungs: Air entry diminished in bilateral lung bases. Bilateral fine crepitations Cardiovascular: systolic murmur. Paced rhythm. AICD present. Abdomen: Bowel Sounds Present, Soft, Non Tender, Non-Distended. No ascites : No dysuria. No renal angle tenderness. No suprapubic tenderness. Extremities: 3+ pedal edema. Capillary Refill Less than 3 Seconds Skin: No rashes, No breakdown Musculoskeletal: No Tenderness to Palpation of Joints or Extremities Neurological: Cranial nerves II-XII grossly intact, DTR 2+/4. No acute focal neurological deficit. Psych/Mental Status: Flat affect Assessment & Plan Assessment/Plan (1) Fall: (2) Rhabdomyolysis: (3) Generalized weakness: (4) Congestive heart failure: (5) Diabetes: PLAN: Plan 84-year-old gentleman was admitted with generalized weakness, slid down from rollator to the floor while using bathroom. Denies hitting head or LOC. Patient has a long laying on the floor for approximately more than 5 hours. Inability to take care of himself. 1. Generalized weakness with gentle fall at home?patient is being admitted in PCU. PT and OT. Probably, patient fell due to CHF exacerbation feeling weak and dyspnea on exertion consult case management for discharge planning. 2. Acute on chronic HFrEF:. BNP very high. Chest x-ray individually reviewed shows moderate bilateral effusion with bibasilar atelectasis. Central pulmonary congestion and interstitial congestion. Change furosemide 40 mg p.o. twice daily to IV. Heart failure core measures including intake and output, fluid restriction less than 1500 mL, daily weight monitoring, kidney and electrolytes monitoring. 3. Diabetes mellitus type 2: Discontinue Amaryl. Serum glucose is in 80s. Continue routine insulin therapy, 4. Hypothyroidism: TSH is elevated 13.7. Levothyroxine dose increased to 100 mcg daily. Free T4 thyroxine ordered tomorrow a.m. 5. DVT prophylaxis, high risk?heparin 5000 subcutaneous every 12 hourly. Bilateral SCDs. Patient also high risk of bleeding due to CKD stage IV 6. Chronic kidney disease stage IV: Baseline creatinine clearance about 20- 25 mL/min. Creatinine around 2.3. UA benign., No significant proteinuria. CT abdomen with IV contrast on 04/01 without any hydronephrosis. Bilateral renal atrophy. Bladder unremarkable sink maker consulted. Consult reviewed and appreciated 7. CODE STATUS?full code verified Charges/Coding Visit Charges Inpatient E&M: 78249 Subs Hosp L2
[2025-04-05 07:37] LABS: Anion Gap 19 (5-15); BUN 36 mg/dL (4-19); BUN/Creat Ratio 15.1 RATIO (10-20); CPK Total, Creatine Kinase 491 U/L (24-195); Calcium,Total 9.3 mg/dL (7.6-11.0); Carbon Dioxide 17.4 mmol/L (21.0-32.0); Chloride 103 mmol/L (98-108); Estimated Creatinine Clearance 23.64 ml/min (50-250); Glucose 86 mg/dL (70-99); Potassium 3.9 mmol/L (3.3-5.1)
[2025-04-05 07:48] LABS: Differential Indicated SCAN CRITERIA MET
[2025-04-05 09:01] LABS: AST(SGOT) 54 U/L (<=37); Alanine Aminotransfer ALT/SGPT 15 U/L (<=46); Albumin, Serum 3.4 g/dL (3.4-4.8); Alkaline Phosphatase 118 U/L (40-129); Bilirubin, Direct 1.03 mg/dL (0.00-0.30); Globulin 2.9 g/dL (2.2-4.2)
--- NOTE | 2025-04-05 10:35 | CASEMGMT ---
JAIMIE CRENSHAW Face to Face with patient for initial transition planning/care coordination assessment. JAIMIE CRENSHAW introduced self and role at [facility]. Patient lying in bed, alert and oriented. Patient willing to participate in assessment and is able to answer all questions appropriately. Care providers, pharmacy, and demographics verified. Strata: 3 PCP: [place] Specialists: none Preferred Pharmacy: [facility] Insurance: [employer], [employer] [facility] Prescription Benefit: yes Living Will/HPOA: yes, daughter Shaylee Bundy LNOK: daughters, son, ex Living Arrangements: Patient lives alone in first floor apartment with one step to enter. Patient states he is independent at home. Transportation: self, children DME/HHC: Patient has shower chair, cane, walker, grab bars. Patient has been to [facility] in the past. Patient has had [facility] in the past. Patient wishes to [facility] for additional rehab, denied SNF list at this time. Patient states he thinks his daughter may have already talked with [facility]. Patient gave permission to speak with daughter Shaylee. Patient states he has no further needs or concerns at this time. CM to follow for discharge planning needs that may arise. JAIMIE CRENSHAW called daughter Shaylee and confirmed that they do want their father to go to [facility] for additional rehab. JAIMIE CRENSHAW updated Shaylee that CM will send referral [facility] to inquire if they are able to accept patient. Daughter had no further questions or concerns. JAIMIE CRENSHAW update DC sales planning analyst to send referral to [facility] Disposition Plan: Patient to discharge to SNF pending acceptance and precert. Marsha MAYER, RN, CM
[2025-04-05] MEDS: Metoprolol(XL)Succ 100 MG Tablet PO (10:59)
[2025-04-05] MEDS: 0.9% Saline Lock 10 ML Syringe IV ×2 (10:59→17:19)
--- NOTE | 2025-04-05 11:57 | CASEMGMT ---
Discharge Planning A list of?SNF providers including quality and resource use data and consistent with the patient's preferred geographic region, medical needs, and insurance network was created in [employer] Guide.? This list was provided to pts daughter () via text msg. Marcela Huffman, Discharge Planning Asst.
--- NOTE | 2025-04-05 12:06 | CASEMGMT ---
Addendum entered by Quinton Troy 04/05/25 12:30: This typewriter repairer to the pts room now and provided the pt with the SNF list. Pt denies further questions or concerns at this time. Addendum entered by Quinton Troy 04/05/25 12:14: [facility]'s #: [phone] Original Note: OK calls this RN FLOWER for pt status update. OK also states that the pt is not VA service connected and that the VA will not help pay for a SNF stay and the pt will have to use his secondary insurance. Update and plan of care provided to the [facility] at this time. JAIMIE CM to the pt's room at this time to provide the pt with the list of SNF's provided by the [facility]. Pt is currently working with therapy. FLOWER to follow.
--- NOTE | 2025-04-05 12:08 | PCM.CONS.R ---
Assessment & Plan Assessment/Plan (1) CKD (chronic kidney disease), stage IV: PLAN: Reviewed prior records, his creatinine has fluctuated between 2.1-2.3 over the last several months. Urine analysis was fairly benign, no significant proteinuria. CT abdomen without any hydronephrosis. Clinically volume overloaded. Lasix IV 40 mg twice daily for now. HPI Consult Data Date of Consult: 04/05/25 HPI Narrative Reason for Consultation: CKD 4 HPI Narrative: MEGAN SANDHU, is a 84 M who presents To the hospital with fall, dizziness. Nephrology on consultation in view of CKD, CHF. He has no history of congestive heart failure with low ejection fraction. Imaging consistent with pulmonary edema. [facility] Medical History (Updated 04/05/25 @ 12:[address] Bushra Woodall MD) Hypothyroidism Chronic pain of toe of left foot Displaced fracture of proximal phalanx of left lesser toe(s), initial encounter for closed fracture Diabetes MIAU (minor aphthous ulceration) Hiatal hernia CKD (chronic kidney disease), stage IV Pulmonary embolism HFrEF (heart failure with reduced ejection fraction) Blood transfusion during current hospitalisation Anticoagulant-induced bleeding GI bleed Benign positional vertigo Home Medications ?Medication ?Instructions ?Recorded ?Last Taken ?Type levothyroxine 75 mcg tablet 75 mcg PO DAILY thyroid 06/28/21 Unknown History mecobalamin (vitamin B12) 1,000 1,000 mcg PO DAILY anemia 06/28/21 Unknown History mcg chewable tablet (B12 Active) metoprolol succinate 100 mg 100 mg PO DAILY heart 06/28/21 Unknown History tablet,extended release 24 hr vszgavcleula-atr-ljpdc acid-vit 1 tab PO DAILY not on pcp med list 06/28/21 Unknown History K-lycop 400 mcg-20 mcg-370 mcg tablet (Men's 50 Plus Multivitamin) tamsulosin 0.4 mg capsule 0.4 mg PO DAILY per md office list 06/28/21 Unknown History ferrous sulfate 325 mg (65 mg 325 mg PO DAILY #30 tabs 07/01/21 Unknown Rx iron) tablet pantoprazole 40 mg tablet,delayed 40 mg PO BID #120 tabs 09/21/21 Unknown Rx release sucralfate 100 mg/mL oral 10 ml PO BID md office #1,000 mL 09/21/21 Unknown Rx suspension colestipol 1 gram tablet 0.5 g (1/2 x 1 gram) PO .every 11/19/21 Unknown Rx other day 30 days #30 tabs gabapentin 400 mg capsule 400 mg PO TID per md office list 11/27/23 Unknown History glimepiride 1 mg tablet 1 mg PO DAILY per pcp med list 11/27/23 Unknown History rosuvastatin 20 mg tablet 20 mg PO DAILY per pcp 11/27/23 Unknown History sacubitril 24 mg-valsartan 26 mg 1 tab PO BID per pcp med list 11/27/23 Unknown History tablet (Entresto) Held on 12/02/23. Instructions: Hold for at least 1 week. GABI on CKD. sertraline 50 mg tablet 50 mg PO DAILY per md office 11/27/23 Unknown History sildenafil 100 mg tablet PO per pcp med list 11/27/23 Unknown History sucralfate 1 gram tablet (Carafate) 1 g PO BID per MD office list 11/27/23 Unknown History acetaminophen 325 mg tablet 650 mg (2 x 325 mg) PO Q6H PRN PRN 12/02/23 Unknown Rx Pain 1-10 Or Fever >100.7 #0 tabs doxycycline monohydrate 100 mg 100 mg PO BID 5 days #10 caps 12/02/23 Unknown Rx capsule insulin lispro 100 unit/mL See Protocol subcut TIDAC #0 mL 12/02/23 Unknown Rx subcutaneous pen (Humalog KwikPen (U-100) Insulin) miconazole nitrate 2 % topical 1 applic topical BID #0 grams 12/02/23 Unknown Rx cream oxycodone 5 mg tablet 2.5 - 5 mg (0.5 - 1 x 5 mg) PO Q4H 12/02/23 Unknown Rx PRN PRN Pain Score 4-10 3 days #7 tabs spironolactone 25 mg tablet 25 mg PO DAILY not on pcp list 30 12/02/23 Unknown Rx days #0 tabs torsemide 20 mg tablet 20 mg PO BID per md of 30 days #0 12/02/23 Unknown Rx tabs doxycycline hyclate 100 mg tablet 100 mg PO BID 04/05/25 Unknown History Allergy/AdvReac Type Severity Reaction Status Date / Time No Known Allergies Allergy Verified 04/05/25 00:00 Family History Other Cancer Hypertension Surgical History History of permanent cardiac pacemaker placement Social History household members: spouse Smoking Status: Never smoker alcohol intake: never substance use type: does not use ROS ROS Narrative negative except above Physical Exam Narrative Alert awake oriented x 3 no obvious distress no pallor no icterus no JVD s1s2 no murmurs lungs clear abdomen soft no organomegaly ++ edema Lab / Micro Data 04/05/25 06:07 04/05/25 06:07 Labs: Laboratory Results - last 24 hr 04/05/25 00:25: WBC 6.0, RBC 5.46, Hgb 16.2, Hct 46.9, MCV 85.9, MCH 29.7, MCHC 34.5, RDW Std Deviation 60.8 H, RDW Coeff of Anuradha 20.6 H, Plt Count 194, MPV 11.2, Immature Gran % (Auto) 0.500, Neut % (Auto) 70.4 H, Lymph % (Auto) 14.4 L, [place] % (Auto) 11.2 H, Eos % (Auto) 2.2, Baso % (Auto) 1.3 H, Absolute Neuts (auto) 4.2, Absolute Lymphs (auto) 0.86, Nucleated RBC % 0, Differential Comment SCANNED, Plt Morphology Comment LARGE, Anisocytosis 1+, Ovalocytes RARE, Sodium 141, Potassium 3.7, Chloride 103, Carbon Dioxide 19.6 L, Anion Gap 18 H, BUN 36 H, Creatinine 2.38 H, Estim Creat Clear Calc 23.30 L, Est GFR (MDRD) Non-Af 26 L, BUN/Creatinine Ratio 15.0, Glucose 75, Calcium 9.4, Magnesium 2.0, Total Creatine Kinase 449 H, [place]NP II > [address]6827 H, TSH 13.700 H 04/05/25 06:07: WBC 5.8, RBC 5.34, Hgb 15.5, Hct 46.3, MCV 86.7, MCH 29.0, MCHC 33.5, RDW Std Deviation 62.0 H, RDW Coeff of Anuradha 20.6 H, Plt Count 159, MPV 10.6, Immature Gran % (Auto) 0.300, Neut % (Auto) 62.1, Lymph % (Auto) 21.0, [place] % (Auto) 13.6 H, Eos % (Auto) 1.4, Baso % (Auto) 1.6 H, Absolute Neuts (auto) 3.6, Absolute Lymphs (auto) 1.22, Nucleated RBC % 0, Sodium 139, Potassium 3.9, Chloride 103, Carbon Dioxide 17.4 L, Anion Gap 19 H, BUN 36 H, Creatinine 2.36 H, Estim Creat Clear Calc 23.64 L, Est GFR (MDRD) Non-Af 26 L, BUN/Creatinine Ratio 15.1, Glucose 86, Calcium 9.3, Total Bilirubin 2.01 H, Direct Bilirubin 1.03 H, AST 54 H, ALT 15, Alkaline Phosphatase 118, Total Creatine Kinase 491 H, Total Protein 6.3, Albumin 3.4, Globulin 2.9 04/05/25 06:59: POC Glucose 91 Imaging Radiology Impression Chest X-Ray 04/05/25 00:36 IMPRESSION: Moderate bilateral pleural effusions. Passive atelectatic airspace disease of the lower lobes. Moderate central pulmonary venous congestion. Moderate interstitial pulmonary congestion. AICD is in good position. Enlarged cardiac silhouette. Reading Location: [place] [address] Echocardiogram 04/05/25 05:55 Interpretation Summary Severe global LV systolic dysfunction. Estimated LVEF 10%. Stage I diastolic dysfunction. There is severe biatrial dilatation. Mild (1+) mitral valve insufficiency. Severe (4+) tricuspid valve insufficiency. Mildly calcified aortic valve. Mild aortic valve stenosis. Mild aortic valve regurgitation. Mildly dilated aortic root. Moderate left pleural effusion. Ordering Physician: Joseph Durand Referring Physician: Joseph Brandt Performed By: Julia Cordova, RDCS, RVT
--- NOTE | 2025-04-05 13:38 | CASEMGMT ---
Discharge Planning Pts daughters requested snf referral to [place]. [facility] is not in network with pts [employer] O plan. Daughters and RN CM updated. Marcela Huffman DC Planning Asst.
[2025-04-05] MEDS: Heparin Injection (Vial) 5,000 UNIT/ML VIAL 5000 UNIT SC (22:14)
[2025-04-06] VITALS (8 sets, daily range): BP systolic 97–109; BP diastolic 60–66; PULSE 60–65; RESP 16; TEMP 36.4; O2SAT 95–99
[2025-04-06 05:19] LABS: Mucous, Urine 0 SEEN /hpf (<or=2+); Red Blood Cells-Urine 0 SEEN /hpf (0-5); Squamous Epithelial Cells - UA 0 SEEN /hpf (0-5)
[2025-04-06 05:24] LABS: Color, Urine Yellow (Yellow); Glucose, Dipstick Normal (Normal); Ketone-Dipstick Negative (Negative); Leukocyte Esterase-Dipstick Negative /ul (Negative); Nitrite-Dipstick Negative (Negative); Occult Blood-Urine Negative /ul (Negative); Protein-Dipstick 15 mg/dl (Negative); Specific Gravity, Urine 1.015 (1.002-1.030); Urine Bilirubin Dipstick Negative (Negative)
[2025-04-06 05:54] LABS: AST(SGOT) 40 U/L (<=37); Alanine Aminotransfer ALT/SGPT 12 U/L (<=46); Albumin, Serum 3.1 g/dL (3.4-4.8); Alkaline Phosphatase 104 U/L (40-129); Anion Gap 15 (5-15); BUN 34 mg/dL (4-19); BUN/Creat Ratio 16.3 RATIO (10-20); Bilirubin, Direct 1.13 mg/dL (0.00-0.30); Calcium,Total 8.6 mg/dL (7.6-11.0); Carbon Dioxide 19.4 mmol/L (21.0-32.0); Chloride 106 mmol/L (98-108); Estimated Creatinine Clearance 26.44 ml/min (50-250); Globulin 2.2 g/dL (2.2-4.2); Glucose 77 mg/dL (70-99); Potassium 2.9 mmol/L (3.3-5.1)
[2025-04-06 05:57] LABS: Hematocrit 42.9 % (40-54); Hemoglobin 14.6 g/dL (13.0-16.5); Immature Granulocytes Count 0.020 X10^3/uL (0.0-0.0); Mean Corp Hgb Conc 34.0 g/dL (32-36); Mean Corpuscular Volume 85.8 fL (80-94); Mean Platelet Vol. 10.4 fl (6.2-12.0); NRBC Flagged by Analyzer 0 % (0-5); Platelet Count 155 K/mm3 (150-450); RBC Distribution Width CV 19.9 % (11.6-14.6); RBC Distribution Width SD 60.6 fl (35.1-43.9); Red Blood Count 5.00 M/mm3 (4.6-6.2); White Blood Count 3.8 K/mm3 (4.4-11.0)
--- NOTE | 2025-04-06 08:34 | PN.HOSP_ITS ---
Reason for Visit Chief Complaint: Fall/generalized weakness Objective Data Objective Data Vital Signs: Vital Signs Temp Pulse Resp BP Pulse Ox O2 Del Method 97.6 F L 60 16 100/60 97 Room Air 04/06/25 04:00 04/06/25 04:00 04/06/25 04:00 04/06/25 04:00 04/06/25 04:00 04/06/25 04:00 Oxygen Delivery Method Room Air Weight: 183 lb 13.848 oz Body Mass Index (BMI) 28.8 Intake & Output: Intake and Output for Last 24 Hours 04/04/25 04/05/25 04/06/25 23:59 23:59 23:59 Intake Total 895 / 895 Output Total 300 / 300 Balance 895 / 895 -300 / -300 Lab / Micro Data 04/06/25 04:44 04/06/25 04:44 Labs: Laboratory Results - last 24 hr 04/05/25 06:07: Total Bilirubin 2.01 H, Direct Bilirubin 1.03 H, AST 54 H, ALT 15, Alkaline Phosphatase 118, Total Protein 6.3, Albumin 3.4, Globulin 2.9 04/05/25 11:09: POC Glucose 99 04/05/25 17:18: POC Glucose 113 H 04/06/25 02:20: Urine Color Yellow, Urine Clarity Clear, Urine pH 6.0, Ur Specific [place] 1.015, Urine Protein 15 H, Urine Glucose (UA) Normal, Urine Ketones Negative, Urine Occult Blood Negative, Urine Nitrite Negative, Urine Bilirubin Negative, Urine Urobilinogen Normal, Ur Leukocyte Esterase Negative, Urine RBC 0 SEEN, Urine WBC 0 SEEN, Ur Squamous Epith Cells 0 SEEN, Urine Bacteria 0 SEEN, Urine Mucus 0 SEEN 04/06/25 04:44: WBC 3.8 L, RBC 5.00, Hgb 14.6, Hct 42.9, MCV 85.8, MCH 29.2, MCHC 34.0, RDW Std Deviation 60.6 H, RDW Coeff of Anuradha 19.9 H, Plt Count 155, MPV 10.4, Immature Gran % (Auto) 0.500, Neut % (Auto) 56.4, Lymph % (Auto) 21.7, M reg % (Auto) 12.8 H, Eos % (Auto) 6.8 H, Baso % (Auto) 1.8 H, Absolute Neuts (auto) 2.2, Absolute Lymphs (auto) 0.83, Nucleated RBC % 0, Sodium 141, P otassium 2.9 L, Chloride 106, Carbon Dioxide 19.4 L, Anion Gap 15, BUN 34 H, C reatinine 2.11 H, Estim Creat Clear Calc 26.44 L, Est GFR (MDRD) Non-Af 30 L, BUN/Creatinine Ratio 16.3, Glucose 77, Calcium 8.6, Total Bilirubin 1.81 H, D irect Bilirubin 1.13 H, AST 40 H, ALT 12, Alkaline Phosphatase 104, Total Protein 5.3 L, Albumin 3.1 L, Globulin 2.2, Free T4 1.20 04/06/25 06:51: POC Glucose 71 L Radiography Diagnostic Testing: Radiology Impression Echocardiogram 04/05/25 05:55 Interpretation Summary Severe global LV systolic dysfunction. Estimated LVEF 10%. Stage I diastolic dysfunction. There is severe biatrial dilatation. Mild (1+) mitral valve insufficiency. Severe (4+) tricuspid valve insufficiency. Mildly calcified aortic valve. Mild aortic valve stenosis. Mild aortic valve regurgitation. Mildly dilated aortic root. Moderate left pleural effusion. Ordering Physician: Joseph Durand Referring Physician: Joseph Brandt Performed By: Julia Cordova, DONTA, RVT Physical Exam Narrative Seen and examined Shortness of breath is better. Patient was admitted with generalized edema and dyspnea on exertion for 1-1/2 weeks. Denies chest pain. Physical exam General: Alert, Oriented x3, Cooperative. BMI 28.8 kg/m? HEENT: Atraumatic, PERRLA, EOMI, Normocephalic. Oral: Oral mucosa dry. No Gingival or Mucosal Lesions/ Ulcerations Neck: Supple, No JVD, Negative Carotid Bruits Chest wall/Lungs: Air entry diminished in bilateral lung bases. Mild bilateral crepitations Cardiovascular: systolic murmur. Paced rhythm. AICD present. Abdomen: Bowel Sounds Present, Soft, Non Tender, Non-Distended. No ascites : No dysuria. No renal angle tenderness. No suprapubic tenderness. Extremities: 2+ pedal edema. Capillary Refill Less than 3 Seconds Skin: No rashes, No breakdown Musculoskeletal: No Tenderness to Palpation of Joints or Extremities Neurological: Cranial nerves II-XII grossly intact, DTR 2+/4. No acute focal neurological deficit. Psych/Mental Status: Flat affect Assessment & Plan Assessment/Plan (1) Fall: (2) Rhabdomyolysis: (3) Generalized weakness: (4) Congestive heart failure: (5) Diabetes: PLAN: Plan 84-year-old gentleman was admitted with generalized weakness, slid down from rollator to the floor while using bathroom. Denies hitting head or LOC. Patient has a long laying on the floor for approximately more than 5 hours. Inability to take care of himself. 1. Generalized weakness with gentle fall at home?patient is being admitted in PCU. PT and OT. Probably, patient fell due to CHF exacerbation feeling weak and dyspnea on exertion consult case management for discharge planning. 04/06: Patient is too weak. Probably will need SNF. 2. Acute on chronic HFrEF:. BNP very high. Chest x-ray individually reviewed shows moderate bilateral effusion with bibasilar atelectasis. Central pulmonary congestion and interstitial congestion. Change furosemide 40 mg p.o. twice daily to IV. Heart failure core measures including intake and output, fluid restriction less than 1500 mL, daily weight monitoring, kidney and electrolytes monitoring. 04/06 patient pulse ox 99% on room air. Continue furosemide 3. Diabetes mellitus type 2: Discontinue Amaryl. Serum glucose is in 80s. Continue routine insulin therapy, 04/06 glucose 71, 123 and 113 4. Hypothyroidism: TSH is elevated 13.7. Levothyroxine dose increased to 100 mcg daily. Free T4 thyroxine 1.20. 5. DVT prophylaxis, high risk?heparin 5000 subcutaneous every 12 hourly. Bilateral SCDs. Patient also high risk of bleeding due to CKD stage IV 6. Chronic kidney disease stage IV: Baseline creatinine clearance about 20- 25 mL/min. Creatinine around 2.3. UA benign., No significant proteinuria. CT abdomen with IV contrast on 04/01 without any hydronephrosis. Bilateral renal atrophy. Bladder unremarkable storm window installer consulted. Consult reviewed and appreciated 04/06: Creatinine improving, 2.11 at baseline. 7. CODE STATUS?full code verified. Laboratory Results 04/05/25 17:18: POC Glucose 113 H 04/06/25 02:20: Urine Color Yellow, Urine Clarity Clear, Urine pH 6.0, Ur Specific [place] 1.015, Urine Protein 15 H, Urine Glucose (UA) Normal, Urine Ketones Negative, Urine Occult Blood Negative, Urine Nitrite Negative, Urine Bilirubin Negative, Urine Urobilinogen Normal, Ur Leukocyte Esterase Negative, Urine RBC 0 SEEN, Urine WBC 0 SEEN, Ur Squamous Epith Cells 0 SEEN, Urine Bacteria 0 SEEN, Urine Mucus 0 SEEN 04/06/25 04:44: WBC 3.8 L, RBC 5.00, Hgb 14.6, Hct 42.9, MCV 85.8, MCH 29.2, MCHC 34.0, RDW Std Deviation 60.6 H, RDW Coeff of Anuradha 19.9 H, Plt Count 155, MPV 10.4, Immature Gran % (Auto) 0.500, Neut % (Auto) 56.4, Lymph % (Auto) 21.7, M reg % (Auto) 12.8 H, Eos % (Auto) 6.8 H, Baso % (Auto) 1.8 H, Absolute Neuts (auto) 2.2, Absolute Lymphs (auto) 0.83, Nucleated RBC % 0, Sodium 141, P otassium 2.9 L, Chloride 106, Carbon Dioxide 19.4 L, Anion Gap 15, BUN 34 H, C reatinine 2.11 H, Estim Creat Clear Calc 26.44 L, Est GFR (MDRD) Non-Af 30 L, BUN/Creatinine Ratio 16.3, Glucose 77, Calcium 8.6, Total Bilirubin 1.81 H, D irect Bilirubin 1.13 H, AST 40 H, ALT 12, Alkaline Phosphatase 104, Total Protein 5.3 L, Albumin 3.1 L, Globulin 2.2, Free T4 1.20 04/06/25 06:51: POC Glucose 71 L 04/06/25 11:32: POC Glucose 123 H Clinical Impression(s) from Imaging Studies Chest X-Ray 04/05/25 00:36 IMPRESSION: Moderate bilateral pleural effusions. Passive atelectatic airspace disease of the lower lobes. Moderate central pulmonary venous congestion. Moderate interstitial pulmonary congestion. AICD is in good position. Enlarged cardiac silhouette. Echocardiogram 04/05/25 05:55 Interpretation Summary Severe global LV systolic dysfunction. Estimated LVEF 10%. Stage I diastolic dysfunction. There is severe biatrial dilatation. Mild (1+) mitral valve insufficiency. Severe (4+) tricuspid valve insufficiency. Mildly calcified aortic valve. Mild aortic valve stenosis. Mild aortic valve regurgitation. Mildly dilated aortic root. Moderate left pleural effusion. Charges/Coding Visit Charges Inpatient E&M: 42013 Subs Hosp L2
--- NOTE | 2025-04-06 11:23 | PCM.PN.REN ---
Subjective Subjective Following for GABI on CKD Patient sitting in chair. Denies any complaints. No overnight events. States feeling better, breathing better. Objective Data Objective Data Vital Signs: Vital Signs Temp Pulse Resp BP Pulse Ox O2 Del Method 97.6 F L 60 16 109/66 95 Room Air 04/06/25 09:00 04/06/25 09:00 04/06/25 09:00 04/06/25 09:00 04/06/25 09:00 04/06/25 09:35 Oxygen Delivery Method Room Air Weight: 83.4 kg Body Mass Index (BMI) 28.8 Intake & Output: Intake and Output for Last 24 Hours 04/04/25 04/05/25 04/06/25 23:59 23:59 23:59 Intake Total 895 / 895 Output Total 300 / 300 Balance 895 / 895 -300 / -300 Lab / Micro Data 04/06/25 04:44 04/06/25 04:44 Labs: Laboratory Results - last 24 hr 04/05/25 11:09: POC Glucose 99 04/05/25 17:18: POC Glucose 113 H 04/06/25 02:20: Urine Color Yellow, Urine Clarity Clear, Urine pH 6.0, Ur Specific [place] 1.015, Urine Protein 15 H, Urine Glucose (UA) Normal, Urine Ketones Negative, Urine Occult Blood Negative, Urine Nitrite Negative, Urine Bilirubin Negative, Urine Urobilinogen Normal, Ur Leukocyte Esterase Negative, Urine RBC 0 SEEN, Urine WBC 0 SEEN, Ur Squamous Epith Cells 0 SEEN, Urine Bacteria 0 SEEN, Urine Mucus 0 SEEN 04/06/25 04:44: WBC 3.8 L, RBC 5.00, Hgb 14.6, Hct 42.9, MCV 85.8, MCH 29.2, MCHC 34.0, RDW Std Deviation 60.6 H, RDW Coeff of Anuradha 19.9 H, Plt Count 155, MPV 10.4, Immature Gran % (Auto) 0.500, Neut % (Auto) 56.4, Lymph % (Auto) 21.7, [place] % (Auto) 12.8 H, Eos % (Auto) 6.8 H, Baso % (Auto) 1.8 H, Absolute Neuts (auto) 2.2, Absolute Lymphs (auto) 0.83, Nucleated RBC % 0, Sodium 141, Potassium 2.9 L, Chloride 106, Carbon Dioxide 19.4 L, Anion Gap 15, BUN 34 H, Creatinine 2.11 H, Estim Creat Clear Calc 26.44 L, Est GFR (MDRD) Non-Af 30 L, BUN/Creatinine Ratio 16.3, Glucose 77, Calcium 8.6, Total Bilirubin 1.81 H, Direct Bilirubin 1.13 H, AST 40 H, ALT 12, Alkaline Phosphatase 104, Total Protein 5.3 L, Albumin 3.1 L, Globulin 2.2, Free T4 1.20 04/06/25 06:51: POC Glucose 71 L Physical Exam Narrative Alert awake oriented x 3 no obvious distress no JVD s1s2 no murmurs lungs clear abdomen soft ++ edema lower legs External Cortés catheter with straw-colored urine in canister Assessment & Plan Assessment/Plan (1) CKD (chronic kidney disease), stage IV: PLAN: - GABI superimposed on CKD stage IV; reviewed prior records, his creatinine has fluctuated between 2.1-2.3 over the last several months. Urine analysis was fairly benign, no significant proteinuria. CT abdomen without any hydronephrosis. Clinically volume overloaded, on Lasix 40 mg IV twice daily. Echo: EF 10%, stage I diastolic dysfunction, severe tricuspid valve insufficiency, severe biatrial dilatation, severe global LV systolic dysfunction. Today patient is on room air. Has urine output. SCr 2.36 yesterday --> 2.11 mg/dL today. Will continue Lasix again for today. Potassium 2.9 today, replace potassium. Discharge plans in progress possibly to rehab facility. Assessment and plan reviewed with Dr. Woodall.
[2025-04-06] MEDS: Metoprolol(XL)Succ 100 MG Tablet PO (11:27)
[2025-04-06] MEDS: Heparin Injection (Vial) 5,000 UNIT/ML VIAL 5000 UNIT SC ×2 (11:28→22:06)
[2025-04-06] MEDS: SACUBITRIL/VALSARTAN 24/26 MG TABLET 0.5 EACH PO ×2 (11:39→22:06)
[2025-04-06] MEDS: Potassium Chloride Oral Tablet 20 MEQ 60 MEQ PO (11:41)
--- NOTE | 2025-04-06 12:39 | CASEMGMT ---
Addendum entered by Marcela Huffman 04/07/25 08:43: Call placed to pts daughter () to confirm that she had rec'd vm. VM was rec'd and she is pleased that her dad is able to discharge to TCU. Marcela Huffman DC Planning Asst. 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 JAIMIE CRENSHAW updated. VM left for pts daughter () with this information and that a referral has been made to TCU. Marcela Huffman DC Planning Asst. Original Note: Discharge Planning This manual writer followed up with pt on snf choices. He asked me to call his daughter (). Per , she would like referral to TCU if [facility] can confirm that pt has no out of network benefits. CONCHITA left for Dasia @ [facility] and JAIMIE CRENSHAW updated. Marcela Huffman DC Planning Asst.
[2025-04-06] MEDS: 0.9% Saline Lock 10 ML Syringe IV (22:08)
[2025-04-07 03:00] VITALS: PULSE 62
[2025-04-07 04:04] VITALS: BP 94/51; PULSE 62; RESP 16; TEMP 36.5; O2SAT 97
[2025-04-07 05:50] LABS: Hematocrit 44.2 % (40-54); Hemoglobin 15.0 g/dL (13.0-16.5); Immature Granulocytes Count 0.020 X10^3/uL (0.0-0.0); Mean Corp Hgb Conc 33.9 g/dL (32-36); Mean Corpuscular Volume 86.3 fL (80-94); Mean Platelet Vol. 11.5 fl (6.2-12.0); NRBC Flagged by Analyzer 0 % (0-5); POSITIVE MORPHOLOGY YES; Platelet Count 164 K/mm3 (150-450); RBC Distribution Width CV 20.3 % (11.6-14.6); RBC Distribution Width SD 61.7 fl (35.1-43.9); Red Blood Count 5.12 M/mm3 (4.6-6.2); White Blood Count 4.8 K/mm3 (4.4-11.0)
[2025-04-07 05:52] LABS: Differential Indicated SCAN CRITERIA MET
[2025-04-07 06:10] LABS: Anion Gap 15 (5-15); BUN 34 mg/dL (4-19); BUN/Creat Ratio 16.3 RATIO (10-20); Calcium,Total 8.8 mg/dL (7.6-11.0); Carbon Dioxide 22.1 mmol/L (21.0-32.0); Chloride 103 mmol/L (98-108); Estimated Creatinine Clearance 26.44 ml/min (50-250); Glucose 93 mg/dL (70-99); Potassium 3.7 mmol/L (3.3-5.1)
[2025-04-07 06:41] LABS: Acanthocytes 1+; Anisocytosis 2+; Differential Comment SCANNED; Schistocytes RARE
--- NOTE | 2025-04-07 08:12 | PN.HOSP_ITS ---
Reason for Visit Chief Complaint: Fall/generalized weakness Objective Data Objective Data Vital Signs: Vital Signs Temp Pulse Resp BP Pulse Ox O2 Del Method 97.7 F L 62 16 94/51 L 97 Room Air 04/07/25 04:04 04/07/25 04:04 04/07/25 04:04 04/07/25 04:04 04/07/25 04:04 04/07/25 04:05 Oxygen Delivery Method Room Air Weight: 183 lb 13.848 oz Body Mass Index (BMI) 28.8 Intake & Output: Intake and Output for Last 24 Hours 04/05/25 04/06/25 04/07/25 23:59 23:59 23:59 Intake Total 895 / 895 150 / 150 Output Total 800 / 800 Balance 895 / 895 -650 / -650 Lab / Micro Data 04/07/25 04:49 04/07/25 04:49 Labs: Laboratory Results - last 24 hr 04/06/25 11:32: POC Glucose 123 H 04/06/25 16:34: POC Glucose 139 H 04/06/25 22:00: POC Glucose 128 H 04/07/25 04:49: WBC 4.8, RBC 5.12, Hgb 15.0, Hct 44.2, MCV 86.3, MCH 29.3, MCHC 33.9, RDW Std Deviation 61.7 H, RDW Coeff of Anuradha 20.3 H, Plt Count 164, MPV 11.5, Immature Gran % (Auto) 0.400, Neut % (Auto) 63.5, Lymph % (Auto) 18.1 L, M reg % (Auto) 11.2 H, Eos % (Auto) 5.8 H, Baso % (Auto) 1.0, Absolute Neuts (auto) 3.1, Absolute Lymphs (auto) 0.87, Nucleated RBC % 0, Differential Comment SCANNED, Platelet Estimate ADEQUATE, Anisocytosis 2+, Ovalocytes 1+, Acanthocytes (Spur) 1+, Schistocytes RARE, Sodium 140, Potassium 3.7, Chloride 103, Carbon Dioxide 22.1, Anion Gap 15, BUN 34 H, Creatinine 2.11 H, Estim Creat Clear Calc 26.44 L, Est GFR (MDRD) Non-Af 30 L, BUN/Creatinine Ratio 16.3, Glucose 93, Calcium 8.8 04/07/25 05:59: POC Glucose 92 Physical Exam Narrative Seen and examined Shortness of breath is better. Patient was admitted with generalized edema and dyspnea on exertion for 1-1/2 weeks. Denies chest pain. Physical exam General: Alert, Oriented x3, Cooperative. BMI 28.8 kg/m? HEENT: Atraumatic, PERRLA, EOMI, Normocephalic. Oral: Oral mucosa dry. No Gingival or Mucosal Lesions/ Ulcerations Neck: Supple, No JVD, Negative Carotid Bruits Chest wall/Lungs: Air entry diminished in bilateral lung bases. Mild bilateral crepitations Cardiovascular: systolic murmur. Paced rhythm. AICD present. Abdomen: Bowel Sounds Present, Soft, Non Tender, Non-Distended. No ascites : No dysuria. No renal angle tenderness. No suprapubic tenderness. Extremities: 2+ pedal edema. Capillary Refill Less than 3 Seconds Skin: No rashes, No breakdown Musculoskeletal: No Tenderness to Palpation of Joints or Extremities Neurological: Cranial nerves II-XII grossly intact, DTR 2+/4. No acute focal neurological deficit. Psych/Mental Status: Flat affect Assessment & Plan Assessment/Plan (1) Fall: (2) Rhabdomyolysis: (3) Generalized weakness: (4) Congestive heart failure: (5) Diabetes: PLAN: Plan 84-year-old gentleman was admitted with generalized weakness, slid down from rollator to the floor while using bathroom. Denies hitting head or LOC. Patient has a long laying on the floor for approximately more than 5 hours. Inability to take care of himself. 1. Generalized weakness with gentle fall at home?patient is being admitted in PCU. PT and OT. Probably, patient fell due to CHF exacerbation feeling weak and dyspnea on exertion consult case management for discharge planning. 04/06: Patient is too weak. Probably will need SNF. 2. Acute on chronic HFrEF:. BNP very high. Chest x-ray individually reviewed shows moderate bilateral effusion with bibasilar atelectasis. Central pulmonary congestion and interstitial congestion. Change furosemide 40 mg p.o. twice daily to IV. Heart failure core measures including intake and output, fluid restriction less than 1500 mL, daily weight monitoring, kidney and electrolytes monitoring. 04/06 patient pulse ox 99% on room air. Continue furosemide 3. Diabetes mellitus type 2: Discontinue Amaryl. Serum glucose is in 80s. Continue routine insulin therapy, 04/06 glucose 71, 123 and 113 4. Hypothyroidism: TSH is elevated 13.7. Levothyroxine dose increased to 100 mcg daily. Free T4 thyroxine 1.20. 5. DVT prophylaxis, high risk?heparin 5000 subcutaneous every 12 hourly. Bilateral SCDs. Patient also high risk of bleeding due to CKD stage IV 6. Chronic kidney disease stage IV: Baseline creatinine clearance about 20- 25 mL/min. Creatinine around 2.3. UA benign., No significant proteinuria. CT abdomen with IV contrast on 04/01 without any hydronephrosis. Bilateral renal atrophy. Bladder unremarkable industrial retrofit designer consulted. Consult reviewed and appreciated 04/06: Creatinine improving, 2.11 at baseline. 7. CODE STATUS?full code verified. Laboratory Results 04/05/25 17:18: POC Glucose 113 H 04/06/25 02:20: Urine Color Yellow, Urine Clarity Clear, Urine pH 6.0, Ur Specific [place] 1.015, Urine Protein 15 H, Urine Glucose (UA) Normal, Urine Ketones Negative, Urine Occult Blood Negative, Urine Nitrite Negative, Urine Bilirubin Negative, Urine Urobilinogen Normal, Ur Leukocyte Esterase Negative, Urine RBC 0 SEEN, Urine WBC 0 SEEN, Ur Squamous Epith Cells 0 SEEN, Urine Bacteria 0 SEEN, Urine Mucus 0 SEEN 04/06/25 04:44: WBC 3.8 L, RBC 5.00, Hgb 14.6, Hct 42.9, MCV 85.8, MCH 29.2, MCHC 34.0, RDW Std Deviation 60.6 H, RDW Coeff of Anuradha 19.9 H, Plt Count 155, MPV 10.4, Immature Gran % (Auto) 0.500, Neut % (Auto) 56.4, Lymph % (Auto) 21.7, M reg % (Auto) 12.8 H, Eos % (Auto) 6.8 H, Baso % (Auto) 1.8 H, Absolute Neuts (auto) 2.2, Absolute Lymphs (auto) 0.83, Nucleated RBC % 0, Sodium 141, P otassium 2.9 L, Chloride 106, Carbon Dioxide 19.4 L, Anion Gap 15, BUN 34 H, C reatinine 2.11 H, Estim Creat Clear Calc 26.44 L, Est GFR (MDRD) Non-Af 30 L, BUN/Creatinine Ratio 16.3, Glucose 77, Calcium 8.6, Total Bilirubin 1.81 H, D irect Bilirubin 1.13 H, AST 40 H, ALT 12, Alkaline Phosphatase 104, Total Protein 5.3 L, Albumin 3.1 L, Globulin 2.2, Free T4 1.20 04/06/25 06:51: POC Glucose 71 L 04/06/25 11:32: POC Glucose 123 H Clinical Impression(s) from Imaging Studies Chest X-Ray 04/05/25 00:36 IMPRESSION: Moderate bilateral pleural effusions. Passive atelectatic airspace disease of the lower lobes. Moderate central pulmonary venous congestion. Moderate interstitial pulmonary congestion. AICD is in good position. Enlarged cardiac silhouette. Echocardiogram 04/05/25 05:55 Interpretation Summary Severe global LV systolic dysfunction. Estimated LVEF 10%. Stage I diastolic dysfunction. There is severe biatrial dilatation. Mild (1+) mitral valve insufficiency. Severe (4+) tricuspid valve insufficiency. Mildly calcified aortic valve. Mild aortic valve stenosis. Mild aortic valve regurgitation. Mildly dilated aortic root. Moderate left pleural effusion.
--- NOTE | 2025-04-07 09:55 | PCM.PN.REN ---
Subjective Subjective Sitting in chair. No overnight events. States feeling well today. States breathing is good. Objective Data Objective Data Vital Signs: Vital Signs Temp Pulse Resp BP Pulse Ox O2 Del Method 97.7 F L 62 16 94/51 L 97 Room Air 04/07/25 04:04 04/07/25 04:04 04/07/25 04:04 04/07/25 04:04 04/07/25 04:04 04/07/25 09:02 Oxygen Delivery Method Room Air Weight: 83.4 kg Body Mass Index (BMI) 28.8 Intake & Output: Intake and Output for Last 24 Hours 04/05/25 04/06/25 04/07/25 23:59 23:59 23:59 Intake Total 895 / 895 150 / 150 Output Total 800 / 800 Balance 895 / 895 -650 / -650 Lab / Micro Data 04/07/25 04:49 04/07/25 04:49 Labs: Laboratory Results - last 24 hr 04/06/25 11:32: POC Glucose 123 H 04/06/25 16:34: POC Glucose 139 H 04/06/25 22:00: POC Glucose 128 H 04/07/25 04:49: WBC 4.8, RBC 5.12, Hgb 15.0, Hct 44.2, MCV 86.3, MCH 29.3, MCHC 33.9, RDW Std Deviation 61.7 H, RDW Coeff of Anuradha 20.3 H, Plt Count 164, MPV 11.5, Immature Gran % (Auto) 0.400, Neut % (Auto) 63.5, Lymph % (Auto) 18.1 L, [place] % (Auto) 11.2 H, Eos % (Auto) 5.8 H, Baso % (Auto) 1.0, Absolute Neuts (auto) 3.1, Absolute Lymphs (auto) 0.87, Nucleated RBC % 0, Differential Comment SCANNED, Platelet Estimate ADEQUATE, Anisocytosis 2+, Ovalocytes 1+, Acanthocytes (Spur) 1+, Schistocytes RARE, Sodium 140, Potassium 3.7, Chloride 103, Carbon Dioxide 22.1, Anion Gap 15, BUN 34 H, Creatinine 2.11 H, Estim Creat Clear Calc 26.44 L, Est GFR (MDRD) Non-Af 30 L, BUN/Creatinine Ratio 16.3, Glucose 93, Calcium 8.8 04/07/25 05:59: POC Glucose 92 Physical Exam Narrative Alert awake oriented x 3 no obvious distress no JVD s1s2 no murmurs lungs clear, no wheezes, rhonchi or rales. On room air abdomen soft +edema lower legs Assessment & Plan Assessment/Plan (1) CKD (chronic kidney disease), stage IV: PLAN: - GABI superimposed on CKD stage IV; reviewed prior records, his creatinine has fluctuated between 2.1-2.3 over the last several months. Urine analysis was fairly benign, no significant proteinuria. CT abdomen without any hydronephrosis. Clinically volume overloaded, was on Lasix 40 mg IV twice daily with good response, now on oral Lasix. Echo: EF 10%, stage I diastolic dysfunction, severe tricuspid valve insufficiency, severe biatrial dilatation, severe global LV systolic dysfunction. Patient is on room air. Has good urine output. 04/05 SCr 2.36 --> 2.11 mg/dL --> SCr 2.11mg/dL again today. Potassium normal today. Discharge plans in progress possibly to rehab facility. Discussed with Dr. Cedillo. Assessment and plan reviewed with Dr. Woodall.
--- NOTE | 2025-04-07 10:04 | CASEMGMT ---
Addendum entered by Quinton Troy 04/07/25 11:53: Hospitalist requests this RN CM to set up P2P discussion. TC to the number mentioned below and TC appt established for [id number] Cedillo notified. Addendum entered by Quinton Troy 04/07/25 10:51: TCU coordinator of library services reports that a Peer to Peer has been offered & needs to be completed by 240pm. [phone] option 1. Notified hospitalist. Addendum entered by Quinton Troy 04/07/25 10:20: Pt's daughter () calls this RN CM requesting update on pt status. Updated the pt's daughter on pt's status and plan of care. Pt's daughter thanks this RN CM and denies further questions, concerns, or needs now. Original Note: TCU athletic coordinator reports that TCU has accepted the pt and that precert is currently pending. CM to follow.
[2025-04-07 10:36] VITALS: BP 98/62; PULSE 62; RESP 16; TEMP 36.4; O2SAT 97
[2025-04-07] MEDS: Heparin Injection (Vial) 5,000 UNIT/ML VIAL 5000 UNIT SC (10:37)
[2025-04-07 11:40] VITALS: PULSE 62
[2025-04-07] MEDS: Metoprolol(XL)Succ 100 MG Tablet PO (11:40)
--- NOTE | 2025-04-07 13:14 | PCM.TXEXTCAR ---
Diet Diet Order/Speech Therapy: INPATIENT Hospital Diet / Speech Therapy Order(s) 04/05/25 04:03 Diet: Regular - General Food consistency:: Regular Liquid Consistency:: Regular/Thin Routine Orders/Code Status Suppository Type: Dulcolax 10mg Suppository Frequency: Daily PRN Routine Lab Work: BMP (BMP in 3 days, CKD stage IV) DC O2, CPAP, BIPAP needs Home O2 Discharge instructions: No Wound(s) top of right head: Wound Type: Laceration Therapies Extremity Affected:: Bilateral Lower Physical Therapy: Eval and Treat Occupational Therapy: Eval and Treat Speech Therapy: Eval and Treat Problem/Diagnosis (1) CKD (chronic kidney disease), stage IV: Status: Chronic Code(s): N18.4 - Chronic kidney disease, stage 4 (severe) Plan 84-year-old gentleman was admitted with generalized weakness, slid down from rollator to the floor while using bathroom. Denies hitting head or LOC. Patient has a long laying on the floor for approximately more than 5 hours. Inability to take care of himself. 1. Generalized weakness with gentle fall at home?patient is being admitted in PCU. PT and OT. Probably, patient fell due to CHF exacerbation feeling weak and dyspnea on exertion consult case management for discharge planning. 04/06: Patient is too weak. Probably will need SNF. 2. Acute on chronic HFrEF:. BNP very high. Chest x-ray individually reviewed shows moderate bilateral effusion with bibasilar atelectasis. Central pulmonary congestion and interstitial congestion. Change furosemide 40 mg p.o. twice daily to IV. Heart failure core measures including intake and output, fluid restriction less than 1500 mL, daily weight monitoring, kidney and electrolytes monitoring. 04/06 patient pulse ox 99% on room air. Continue furosemide 3. Diabetes mellitus type 2: Discontinue Amaryl. Serum glucose is in 80s. Continue routine insulin therapy, 04/06 glucose 71, 123 and 113 4. Hypothyroidism: TSH is elevated 13.7. Levothyroxine dose increased to 100 mcg daily. Free T4 thyroxine 1.20. 5. DVT prophylaxis, high risk?heparin 5000 subcutaneous every 12 hourly. Bilateral SCDs. Patient also high risk of bleeding due to CKD stage IV 6. Chronic kidney disease stage IV: Baseline creatinine clearance about 20- 25 mL/min. Creatinine around 2.3. UA benign., No significant proteinuria. CT abdomen with IV contrast on 04/01 without any hydronephrosis. Bilateral renal atrophy. Bladder unremarkable factory hand consulted. Consult reviewed and appreciated 04/06: Creatinine improving, 2.11 at baseline. 7. CODE STATUS?full code verified. Laboratory Results 04/05/25 17:18: POC Glucose 113 H 04/06/25 02:20: Urine Color Yellow, Urine Clarity Clear, Urine pH 6.0, Ur Specific [place] 1.015, Urine Protein 15 H, Urine Glucose (UA) Normal, Urine Ketones Negative, Urine Occult Blood Negative, Urine Nitrite Negative, Urine Bilirubin Negative, Urine Urobilinogen Normal, Ur Leukocyte Esterase Negative, Urine RBC 0 SEEN, Urine WBC 0 SEEN, Ur Squamous Epith Cells 0 SEEN, Urine Bacteria 0 SEEN, Urine Mucus 0 SEEN 04/06/25 04:44: WBC 3.8 L, RBC 5.00, Hgb 14.6, Hct 42.9, MCV 85.8, MCH 29.2, MCHC 34.0, RDW Std Deviation 60.6 H, RDW Coeff of Anuradha 19.9 H, Plt Count 155, MPV 10.4, Immature Gran % (Auto) 0.500, Neut % (Auto) 56.4, Lymph % (Auto) 21.7, [place] % (Auto) 12.8 H, Eos % (Auto) 6.8 H, Baso % (Auto) 1.8 H, Absolute Neuts (auto) 2.2, Absolute Lymphs (auto) 0.83, Nucleated RBC % 0, Sodium 141, Potassium 2.9 L, Chloride 106, Carbon Dioxide 19.4 L, Anion Gap 15, BUN 34 H, Creatinine 2.11 H, Estim Creat Clear Calc 26.44 L, Est GFR (MDRD) Non-Af 30 L, BUN/Creatinine Ratio 16.3, Glucose 77, Calcium 8.6, Total Bilirubin 1.81 H, Direct Bilirubin 1.13 H, AST 40 H, ALT 12, Alkaline Phosphatase 104, Total Protein 5.3 L, Albumin 3.1 L, Globulin 2.2, Free T4 1.20 04/06/25 06:51: POC Glucose 71 L 04/06/25 11:32: POC Glucose 123 H Clinical Impression(s) from Imaging Studies Chest X-Ray 04/05/25 00:36 IMPRESSION: Moderate bilateral pleural effusions. Passive atelectatic airspace disease of the lower lobes. Moderate central pulmonary venous congestion. Moderate interstitial pulmonary congestion. AICD is in good position. Enlarged cardiac silhouette. Echocardiogram 04/05/25 05:55 Interpretation Summary Severe global LV systolic dysfunction. Estimated LVEF 10%. Stage I diastolic dysfunction. There is severe biatrial dilatation. Mild (1+) mitral valve insufficiency. Severe (4+) tricuspid valve insufficiency. Mildly calcified aortic valve. Mild aortic valve stenosis. Mild aortic valve regurgitation. Mildly dilated aortic root. Moderate left pleural effusion. Allergies/Procedures Done in Hospital Allergies No Known Allergies Allergy (Verified 04/05/25 00:00) Type of Care/Length of Stay Estimated LOS: Convalescent Care Less Than 30 days Type of Care Needed: Skilled Rehab Potential: Good Prognosis: Good Additional Orders/Day of Discharge Day of Discharge: 04/07/25 Dietary and Speech Recommendations Dietitian Recommendations/Changes: Will adjust diet to Regular - no added salt to manage medical conditions. Will continue to monitor blood sugars and will adjusted diet if they become elevated. Discharge Plan Admission Admit Date/Time: 04/05/25 02:38 Primary Reason for Your Visit: CHF exacerbation Attending Provider: Jaden Cedillo Primary Care Provider: Joseph Durand Consulting Providers: Joseph Durand; Bushra Woodall Discharge Orders/Prescriptions Prescriptions: New spironolactone 25 mg Tablet 12.5 mg PO DAILY Qty: 0 0RF Rx Instructions: Hold for serum potassium more than 5.0 sertraline 50 mg Tablet 50 mg PO DAILY Qty: 0 0RF sacubitril-valsartan 24-26 mg Tablet 0.5 tab PO BID Qty: 0 0RF Rx Instructions: Hold for SBP less than 110 mmHg furosemide 40 mg Tablet 40 mg PO BIDLX Qty: 0 0RF insulin lispro [Humalog KwikPen Insulin] 100 unit/mL Insulin Pen See Protocol subcut TIDAC Qty: 0 0RF Protocol: 3. Sliding Scale Insulin Med Dosing Condition: 150-189 mg/dl = 1 unit Condition: 190-229 mg/dl = 2 units Condition: 230-269 mg/dl = 3 units Condition: 270-309 mg/dl = 4 units Condition: 310-349 mg/dl = 5 units Condition: 350-399 mg/dl = 6 units Condition: 400-449 mg/dl = 7 units Condition: Greater than 449 call physician Protocol Text: - Use for Total Daily Dose of Insulin 37-55 units - Obsese, infected, or steroid patients MEDIUM DOSING ALGORITHIM Continued pantoprazole 40 mg tablet,delayed release (DR/EC) 40 mg PO BID Qty: 120 3RF metoprolol succinate 100 mg Tablet Extended Release 24 Hr 100 mg PO DAILY levothyroxine 75 mcg Tablet 75 mcg PO DAILY tamsulosin 0.4 mg Capsule 0.4 mg PO DAILY Men's 50 Plus Multivitamin 400-20-370 mcg Tablet 1 tab PO DAILY mecobalamin (vitamin B12) [B12 Active] 1,000 mcg Tablet,Chewable 1,000 mcg PO DAILY gabapentin 400 mg capsule 400 mg PO TID glimepiride 1 mg tablet 1 mg PO DAILY rosuvastatin 20 mg tablet 20 mg PO DAILY Rx Instructions: source is per pcp med list acetaminophen 325 mg Tablet 650 mg PO Q6H PRN PRN (Reason: Pain 1-10 Or Fever >100.7) Qty: 0 0RF Changed ferrous sulfate 325 mg (65 mg iron) tablet 325 mg PO QODAY Qty: 30 0RF Discontinued sacubitril-valsartan [Entresto] 24-26 mg tablet 1 tab PO BID Patient Comments: Currently taking sucralfate [Carafate] 1 gram tablet 1 g PO BID doxycycline hyclate 100 mg tablet 100 mg PO BID sertraline 100 mg tablet 100 mg PO DAILY torsemide 20 mg tablet 40 mg PO .Daily Referrals / Follow Up: Bushra Woodall MD [Med Staff - Consulting, Nephrology] - Within 1 Week Referral Note: On Lasix spironolactone and Entresto for heart failure Fausto White MD [Med Staff - Active Staff, Cardiology] - Within 2 Weeks Joseph Durand MD [Primary Care Provider, Family Practice] - Within 2 Weeks Disposition Disposition (needs filled in before D/C Order can be placed): Assisted Facility
--- NOTE | 2025-04-07 13:21 | CASEMGMT ---
[facility] notified [facility] to [facility] under pt's secondary insurance
--- NOTE | 2025-04-07 13:26 | DS.PCM_ITS ---
Providers Date of Admission: 04/05/25 Date of Discharge: 04/07/25 Primary Care Physician: Dr. Joseph Durand MD Consultations 04/05/25 07:42 Consult: Nephrology Routine Consulting Provider: Bushra Woodall Reason for Consult: CKD4, HF exa, incr CPK EMERGENT Consult: No MD Notified: Yes Date Notified: 04/05/25 Time Notified: 07:42 Method of Notification: Text Reason For Visit: GENERALIZED WEAKNESS, FALL, RHABDOMYOLYSIS Diagnosis Discharge Diagnosis (1) CKD (chronic kidney disease), stage IV: Status: Chronic Code(s): N18.4 - Chronic kidney disease, stage 4 (severe) Plan 84-year-old gentleman was admitted with generalized weakness, slid down from rollator to the floor while using bathroom. Denies hitting head or LOC. Patient has a long laying on the floor for approximately more than 5 hours. Inability to take care of himself. 1. Generalized weakness with gentle fall at home?patient is being admitted in PCU. PT and OT. Probably, patient fell due to CHF exacerbation feeling weak and dyspnea on exertion consult case management for discharge planning. 04/06: Patient is too weak. Probably will need SNF. 04/07: [id number] prior authorization for SNF was done. Patient approved for SNF/TCU. 2. Acute on chronic HFrEF:. BNP very high. Chest x-ray individually reviewed shows moderate bilateral effusion with bibasilar atelectasis. Central pulmonary congestion and interstitial congestion. Change furosemide 40 mg p.o. twice daily to IV. Heart failure core measures including intake and output, fluid restriction less than 1500 mL, daily weight monitoring, kidney and electrolytes monitoring. 04/06 patient pulse ox 99% on room air. Continue furosemide 04/07: Nurse asked me to see leg. There is venous hypertension with chronic congestion of lower legs probably from chronic scarring of lower legs from bound. Patient might have damage of lymphatics and superficial veins. He is a diabetic. No pain tenderness or induration therefore does not seem cellulitis. Patient was also on doxycycline. Patient discharged on furosemide 40 mg p.o. twice daily, spironolactone 12.5 mg twice daily, Entresto, metoprolol succinate and atorvastatin. Follow-up in cardiology office. 3. Diabetes mellitus type 2: Discontinue Amaryl. Serum glucose is in 80s. Continue routine insulin therapy, 04/06 glucose 71, 123 and 113 4. Hypothyroidism: TSH is elevated 13.7. Levothyroxine dose increased to 100 mcg daily. Free T4 thyroxine 1.20. 5. DVT prophylaxis, high risk?heparin 5000 subcutaneous every 12 hourly. Bilateral SCDs. Patient also high risk of bleeding due to CKD stage IV 6. Chronic kidney disease stage IV: Baseline creatinine clearance about 20- 25 mL/min. Creatinine around 2.3. UA benign., No significant proteinuria. CT abdomen with IV contrast on 04/01 without any hydronephrosis. Bilateral renal atrophy. Bladder unremarkable grain origination specialist consulted. Consult reviewed and appreciated 04/06: Creatinine improving, 2.11 at baseline. 04/07: Creatinine is same 2.11. Follow-up with nephrology. Patient might be benefited by SGL 2 inhibitor empagliflozin to reduce the risk of sustained eGFR decline/ESKD/CV in view of HFrEF 7. CODE STATUS?full code verified. Discharge medication reconciliation done. Discharge follow-up instructions completed. Discharge process discussed with the patient and all questions were answered to patient's satisfaction. Follow with PCP in 1 to 2 weeks Total time spent, exact 35 minutes on discharge meds reconciliation, examination, coordination of care with nurses and ancillary staff, review of imaging and blood test and discussion with the patient on follow-up instructions. Laboratory Results 04/06/25 02:20: Urine Color Yellow, Urine Clarity Clear, Urine pH 6.0, Ur Specific [place] 1.015, Urine Protein 15 H, Urine Glucose (UA) Normal, Urine Ketones Negative, Urine Occult Blood Negative, Urine Nitrite Negative, Urine Bilirubin Negative, Urine Urobilinogen Normal, Ur Leukocyte Esterase Negative, Urine RBC 0 SEEN, Urine WBC 0 SEEN, Ur Squamous Epith Cells 0 SEEN, Urine Bacteria 0 SEEN, Urine Mucus 0 SEEN 04/06/25 04:44: WBC 3.8 L, RBC 5.00, Hgb 14.6, Hct 42.9, MCV 85.8, MCH 29.2, MCHC 34.0, RDW Std Deviation 60.6 H, RDW Coeff of Anuradha 19.9 H, Plt Count 155, MPV 10.4, Immature Gran % (Auto) 0.500, Neut % (Auto) 56.4, Lymph % (Auto) 21.7, M reg % (Auto) 12.8 H, Eos % (Auto) 6.8 H, Baso % (Auto) 1.8 H, Absolute Neuts (auto) 2.2, Absolute Lymphs (auto) 0.83, Nucleated RBC % 0, Sodium 141, P otassium 2.9 L, Chloride 106, Carbon Dioxide 19.4 L, Anion Gap 15, BUN 34 H, C reatinine 2.11 H, Estim Creat Clear Calc 26.44 L, Est GFR (MDRD) Non-Af 30 L, BUN/Creatinine Ratio 16.3, Glucose 77, Calcium 8.6, Total Bilirubin 1.81 H, D irect Bilirubin 1.13 H, AST 40 H, ALT 12, Alkaline Phosphatase 104, Total Protein 5.3 L, Albumin 3.1 L, Globulin 2.2, Free T4 1.20 04/06/25 16:34: POC Glucose 139 H 04/06/25 22:00: POC Glucose 128 H 04/07/25 04:49: WBC 4.8, RBC 5.12, Hgb 15.0, Hct 44.2, MCV 86.3, MCH 29.3, MCHC 33.9, RDW Std Deviation 61.7 H, RDW Coeff of Anuradha 20.3 H, Plt Count 164, MPV 11.5, Immature Gran % (Auto) 0.400, Neut % (Auto) 63.5, Lymph % (Auto) 18.1 L, M reg % (Auto) 11.2 H, Eos % (Auto) 5.8 H, Baso % (Auto) 1.0, Absolute Neuts (auto) 3.1, Absolute Lymphs (auto) 0.87, Nucleated RBC % 0, Differential Comment SCANNED, Platelet Estimate ADEQUATE, Anisocytosis 2+, Ovalocytes 1+, Acanthocytes (Spur) 1+, Schistocytes RARE, Sodium 140, Potassium 3.7, Chloride 103, Carbon Dioxide 22.1, Anion Gap 15, BUN 34 H, Creatinine 2.11 H, Estim Creat Clear Calc 26.44 L, Est GFR (MDRD) Non-Af 30 L, BUN/Creatinine Ratio 16.3, Glucose 93, Calcium 8.8 04/07/25 05:59: POC Glucose 92 04/07/25 11:28: POC Glucose 144 H Clinical Impression(s) from Imaging Studies Chest X-Ray 04/05/25 00:36 IMPRESSION: Moderate bilateral pleural effusions. Passive atelectatic airspace disease of the lower lobes. Moderate central pulmonary venous congestion. Moderate interstitial pulmonary congestion. AICD is in good position. Enlarged cardiac silhouette. Echocardiogram 04/05/25 05:55 Interpretation Summary Severe global LV systolic dysfunction. Estimated LVEF 10%. Stage I diastolic dysfunction. There is severe biatrial dilatation. Mild (1+) mitral valve insufficiency. Severe (4+) tricuspid valve insufficiency. Mildly calcified aortic valve. Mild aortic valve stenosis. Mild aortic valve regurgitation. Mildly dilated aortic root. Moderate left pleural effusion. Medications at Discharge Home Medications levothyroxine 75 mcg tablet 75 mcg PO DAILY thyroid 06/28/21 mecobalamin (vitamin B12) 1,000 mcg chewable tablet (B12 Active) 1,000 mcg PO DAILY anemia 06/28/21 metoprolol succinate 100 mg tablet,extended release 24 hr 100 mg PO DAILY heart 06/28/21 [id number] acid-vit K-lycop 400 mcg-20 mcg-370 mcg tablet (Men's 50 Plus Multivitamin) 1 tab PO DAILY not on pcp med list 06/28/21 tamsulosin 0.4 mg capsule 0.4 mg PO DAILY . 06/28/21 pantoprazole 40 mg tablet,delayed release 40 mg PO BID #120 tabs 09/21/21 gabapentin 400 mg capsule 400 mg PO TID per md office list 11/27/23 glimepiride 1 mg tablet 1 mg PO DAILY . 11/27/23 rosuvastatin 20 mg tablet 20 mg PO DAILY per pcp 11/27/23 acetaminophen 325 mg tablet 650 mg (2 x 325 mg) PO Q6H PRN PRN Pain 1-10 Or Fever >100.7 #0 tabs 12/02/23 ferrous sulfate 325 mg (65 mg iron) tablet 325 mg PO QODAY #30 tabs 04/07/25 furosemide 40 mg tablet 40 mg PO BIDLX #0 tabs 04/07/25 insulin lispro 100 unit/mL subcutaneous pen (Humalog KwikPen (U-100) Insulin) See Protocol subcut TIDAC #0 mL 04/07/25 sacubitril 24 mg-valsartan 26 mg tablet 0.5 tab PO BID #0 tabs 04/07/25 sertraline 50 mg tablet 50 mg PO DAILY #0 tabs 04/07/25 spironolactone 25 mg tablet 12.5 mg (1/2 x 25 mg) PO DAILY #0 tabs 04/07/25 Physical Exam Narrative Seen and examined Shortness of breath is better. Lower legs, no tenderness or no pain Patient was admitted with generalized edema and dyspnea on exertion for 1-1/2 weeks. Denies chest pain. Physical exam General: Alert, Oriented x3, Cooperative. BMI 28.8 kg/m? HEENT: Atraumatic, PERRLA, EOMI, Normocephalic. Oral: Oral mucosa dry. No Gingival or Mucosal Lesions/ Ulcerations Neck: Supple, No JVD, Negative Carotid Bruits Chest wall/Lungs: Air entry diminished in bilateral lung bases. Lungs clear. Cardiovascular: systolic murmur. Paced rhythm. AICD present. Abdomen: Bowel Sounds Present, Soft, Non Tender, Non-Distended. No ascites : No dysuria. No renal angle tenderness. No suprapubic tenderness. Extremities: 2+ pedal edema. Capillary Refill Less than 3 Seconds Skin: Mild redness in both lower legs., Chronic venous congestion. No acute tenderness or induration. Not consistent with cellulitis Musculoskeletal: No Tenderness to Palpation of Joints or Extremities Neurological: Cranial nerves II-XII grossly intact, DTR 2+/4. No acute focal neurological deficit. Psych/Mental Status: Flat affect Weight / BMI Weight Weight: 183 lb 13.848 oz Body Mass Index (BMI) 28.8 ABG / Lab / Microbiology Data 04/07/25 04:49 04/07/25 04:49 Laboratory: Laboratory Results - last 24 hr 04/06/25 16:34: POC Glucose 139 H 04/06/25 22:00: POC Glucose 128 H 04/07/25 04:49: WBC 4.8, RBC 5.12, Hgb 15.0, Hct 44.2, MCV 86.3, MCH 29.3, MCHC 33.9, RDW Std Deviation 61.7 H, RDW Coeff of Anuradha 20.3 H, Plt Count 164, MPV 11.5, Immature Gran % (Auto) 0.400, Neut % (Auto) 63.5, Lymph % (Auto) 18.1 L, M reg % (Auto) 11.2 H, Eos % (Auto) 5.8 H, Baso % (Auto) 1.0, Absolute Neuts (auto) 3.1, Absolute Lymphs (auto) 0.87, Nucleated RBC % 0, Differential Comment SCANNED, Platelet Estimate ADEQUATE, Anisocytosis 2+, Ovalocytes 1+, Acanthocytes (Spur) 1+, Schistocytes RARE, Sodium 140, Potassium 3.7, Chloride 103, Carbon Dioxide 22.1, Anion Gap 15, BUN 34 H, Creatinine 2.11 H, Estim Creat Clear Calc 26.44 L, Est GFR (MDRD) Non-Af 30 L, BUN/Creatinine Ratio 16.3, Glucose 93, Calcium 8.8 04/07/25 05:59: POC Glucose 92 04/07/25 11:28: POC Glucose 144 H D/C Instructions DC O2, CPAP, BIPAP Needs Home O2 Discharge instructions: No Meaningful Use Info Meaningful Use Meaningful Use Diagnoses (Choose all that apply): None applicable Discharge Plan Admission Admit Date/Time: 04/05/25 02:38 Primary Reason for Your Visit: CHF exacerbation Attending Provider: Jaden Cedillo Primary Care Provider: Joseph Durand Consulting Providers: Joseph Durand; Bushra Woodall Discharge Orders/Prescriptions Prescriptions: New spironolactone 25 mg Tablet 12.5 mg PO DAILY Qty: 0 0RF Rx Instructions: Hold for serum potassium more than 5.0 sertraline 50 mg Tablet 50 mg PO DAILY Qty: 0 0RF sacubitril-valsartan 24-26 mg Tablet 0.5 tab PO BID Qty: 0 0RF Rx Instructions: Hold for SBP less than 110 mmHg furosemide 40 mg Tablet 40 mg PO BIDLX Qty: 0 0RF insulin lispro [Humalog KwikPen Insulin] 100 unit/mL Insulin Pen See Protocol subcut TIDAC Qty: 0 0RF Protocol: 3. Sliding Scale Insulin Med Dosing Condition: 150-189 mg/dl = 1 unit Condition: 190-229 mg/dl = 2 units Condition: 230-269 mg/dl = 3 units Condition: 270-309 mg/dl = 4 units Condition: 310-349 mg/dl = 5 units Condition: 350-399 mg/dl = 6 units Condition: 400-449 mg/dl = 7 units Condition: Greater than 449 call physician Protocol Text: - Use for Total Daily Dose of Insulin 37-55 units - Obsese, infected, or steroid patients MEDIUM DOSING ALGORITHIM Continued pantoprazole 40 mg tablet,delayed release (DR/EC) 40 mg PO BID Qty: 120 3RF metoprolol succinate 100 mg Tablet Extended Release 24 Hr 100 mg PO DAILY levothyroxine 75 mcg Tablet 75 mcg PO DAILY tamsulosin 0.4 mg Capsule 0.4 mg PO DAILY Men's 50 Plus Multivitamin 400-20-370 mcg Tablet 1 tab PO DAILY mecobalamin (vitamin B12) [B12 Active] 1,000 mcg Tablet,Chewable 1,000 mcg PO DAILY gabapentin 400 mg capsule 400 mg PO TID glimepiride 1 mg tablet 1 mg PO DAILY rosuvastatin 20 mg tablet 20 mg PO DAILY Rx Instructions: source is per pcp med list acetaminophen 325 mg Tablet 650 mg PO Q6H PRN PRN (Reason: Pain 1-10 Or Fever >100.7) Qty: 0 0RF Changed ferrous sulfate 325 mg (65 mg iron) tablet 325 mg PO QODAY Qty: 30 0RF Discontinued sacubitril-valsartan [Entresto] 24-26 mg tablet 1 tab PO BID Patient Comments: Currently taking sucralfate [Carafate] 1 gram tablet 1 g PO BID doxycycline hyclate 100 mg tablet 100 mg PO BID sertraline 100 mg tablet 100 mg PO DAILY torsemide 20 mg tablet 40 mg PO .Daily Referrals / Follow Up: Bushra Woodall MD [Med Staff - Consulting, Nephrology] - Within 1 Week Referral Note: On Lasix spironolactone and Entresto for heart failure Fausto White MD [Med Staff - Active Staff, Cardiology] - Within 2 Weeks Joseph Durand MD [Primary Care Provider, Family Practice] - Within 2 Weeks Disposition Disposition (needs filled in before D/C Order can be placed): [facility] Facility Charges/Coding Visit Charges Inpatient E&M: 11359 Disch Hosp >30min
--- NOTE | 2025-04-07 13:39 | PHA.DC.MR.R ---
Pharmacy [place] Med Reconciliation Pharmacy Service has performed discharge medication reconciliation for this patient. The patient's discharge medication list was reviewed for discrepancies and discrepancies were resolved. Medications at Discharge Home Medications levothyroxine 75 mcg tablet 75 mcg PO DAILY thyroid 06/28/21 mecobalamin (vitamin B12) 1,000 mcg chewable tablet (B12 Active) 1,000 mcg PO DAILY anemia 06/28/21 metoprolol succinate 100 mg tablet,extended release 24 hr 100 mg PO DAILY heart 06/28/21 [id number] acid-vit K-lycop 400 mcg-20 mcg-370 mcg tablet (Men's 50 Plus Multivitamin) 1 tab PO DAILY not on pcp med list 06/28/21 tamsulosin 0.4 mg capsule 0.4 mg PO DAILY . 06/28/21 pantoprazole 40 mg tablet,delayed release 40 mg PO BID #120 tabs 09/21/21 gabapentin 400 mg capsule 400 mg PO TID per md office list 11/27/23 glimepiride 1 mg tablet 1 mg PO DAILY . 11/27/23 rosuvastatin 20 mg tablet 20 mg PO DAILY per pcp 11/27/23 acetaminophen 325 mg tablet 650 mg (2 x 325 mg) PO Q6H PRN PRN Pain 1-10 Or Fever >100.7 #0 tabs 12/02/23 ferrous sulfate 325 mg (65 mg iron) tablet 325 mg PO QODAY #30 tabs 04/07/25 furosemide 40 mg tablet 40 mg PO BIDLX #0 tabs 04/07/25 insulin lispro 100 unit/mL subcutaneous pen (Humalog KwikPen (U-100) Insulin) See Protocol subcut TIDAC #0 mL 04/07/25 sacubitril 24 mg-valsartan 26 mg tablet 0.5 tab PO BID #0 tabs 04/07/25 sertraline 50 mg tablet 50 mg PO DAILY #0 tabs 04/07/25 spironolactone 25 mg tablet 12.5 mg (1/2 x 25 mg) PO DAILY #0 tabs 04/07/25
--- NOTE | 2025-04-07 14:04 | CASEMGMT ---
Addendum entered by Quinton Troy 04/07/25 14:39: TCU production coordinator reports that precert has been approved and finalized. Pt notified. Copies of med list and transfer orders placed in chart. This RN CM sent the original signed med list and transfer orders to TCU via the tube system at this time and notified TCU production coordinator. TC to pt's daughters, and , to notify pt will be transferring to the TCU today. Notified pt's RN that N2N can be called. No further needs identified at this time. Original Note: Dr Cedillo reports that p2p has been accepted and that the pt is approved for SNF placement. Hospitalist provides this creative services writer with transfer orders and signed med list. Notified TCU production coordinator who states that precert has not processed on their end. Pt cannot DC to TCU until they have precert finalized. TCU community coordinator for [employer] school states that she is working on this. CM to follow.
[2025-04-07 14:50] VITALS: BP 103/64; PULSE 60; RESP 16; TEMP 36.6; O2SAT 94
== END 2025-04-07 15:53 | disposition skilled nursing facility (03) | DRG 291 ==
LOC: ED 04-05 02:31 → PCU 04-05 03:09
PROVIDERS: Admitting Provider Family Medicine; Emergency Provider Emergency Medicine; PCP Family Medicine; Visit Provider Internal Medicine
DX: I13.0 Hypertensive heart and chronic kidney disease with heart failure and stage 1 through stage 4 chronic kidney disease, or unspecified chronic kidney disease (principal); I50.23 Acute on chronic systolic (congestive) heart failure; M62.82 Rhabdomyolysis; N18.4 Chronic kidney disease, stage 4 (severe); N17.9 Acute kidney failure, unspecified; E11.22 Type 2 diabetes mellitus with diabetic chronic kidney disease; E03.9 Hypothyroidism, unspecified; Z79.4 Long term (current) use of insulin; W18.39XA Other fall on same level, initial encounter; R53.1 Weakness; Z79.84 Long term (current) use of oral hypoglycemic drugs; Z79.890 Hormone replacement therapy; Z79.899 Other long term (current) drug therapy; Z95.0 Presence of cardiac pacemaker; R94.6 Abnormal results of thyroid function studies; Y92.002 Bathroom of unspecified non-institutional (private) residence as the place of occurrence of the external cause
CPT/HCPCS: 36415; 71045; 80048; 80076; 81001; 82550; 82962; 83735; 83880; 84439; 84443; 85025; 93306; 97162; 97166; 97530; 97535; 99285; A4216; J1938

== ENCOUNTER 2025-04-07 16:05 | Inpatient (IN) | payer MEDICARE, SELFPAY ==
[2025-04-07 16:23] VITALS: BP 110/65; PULSE 61; RESP 18; TEMP 35.7; O2SAT 100; BMI 29.0
--- NOTE | 2025-04-07 20:27 | HP.PCM_ITS ---
HPI - General General Date of Admission: 04/07/25 Date of Service: 04/07/25 Chief Complaint: Here for rehabilitation. HPI Narrative MEGAN SANDHU, is a 84 Male who presents with followin04/05/2025 [facility] ED fall. Sat on toilet for 4 hours, stood up, slid down. No head injury, no loss of consciousness, EMS found him 5 hours later. Weak, CPK 450, Chest x-ray bilateral pleural effusions. Too weak to walk, admit for placement. 04/05/2025 Admit [facility]. PT/OT/CM for weakness/discharge planning. Treat CHF. 04/05/2025 Echo severe global LV dysfunction. LVEF 10%. 04/06/2025 Shortness of breath better. PT/OT SNF. BNP high, Furosemide 40mg iv bid, fluid restriction, daily weights for acute on chronic HFrEF. Nephrology for acute kidney injury. 04/07/2025 Peer to Peer done for TCU. Furosemide 40mg po bid, Aldactone 12.5mg bid, Entresto 24/26mg 1/2 tablet bid, Metoprolol for acute on chronic HFrEF. Levothyroxine increased to 100mcg daily, for TSH 13.7. Creatinine 2.11. 04/07/2025 Admit to TCU with debility, here for rehabilitation, strengthening prior to discharge home alone. [facility] Medical History (Updated 04/07/25 @ 20:[address] Lv Moreno MD) Hypothyroidism Chronic pain of toe of left foot Displaced fracture of proximal phalanx of left lesser toe(s), initial encounter for closed fracture Diabetes MIAU (minor aphthous ulceration) Hiatal hernia CKD (chronic kidney disease), stage IV Pulmonary embolism HFrEF (heart failure with reduced ejection fraction) Blood transfusion during current hospitalisation Anticoagulant-induced bleeding GI bleed Benign positional vertigo Home Medications ?Medication ?Instructions ?Recorded ?Last Taken ?Type levothyroxine 75 mcg tablet 75 mcg PO DAILY thyroid Unknown History mecobalamin (vitamin B12) 1,000 1,000 mcg PO DAILY ane erica 06/28/21 Unknown History mcg chewable tablet (B12 Active) metoprolol succinate 100 mg 100 mg PO DAILY heart 04/10 Unknown History tablet,extended release 24 hr xtjteoxclfoa-[id number] acid-vit 1 tab PO DAILY not on pcp med list 06/28/21 Unknown History K-lycop 400 mcg-20 mcg-370 mcg tablet (Men's 50 Plus Multivitamin) tamsulosin 0.4 mg capsule 0.4 mg PO DAILY . 06/28/21 U nknown History pantoprazole 40 mg tablet,delayed 40 mg PO BID #120 ta bs 09/21/21 Unknown Rx release gabapentin 400 mg capsule 400 mg PO TID per md office list 11/27/23 Unknown History glimepiride 1 mg tablet 1 mg PO DAILY . 11/27/23 Unk nown History rosuvastatin 20 mg tablet 20 mg PO DAILY per pcp 11/26 Unknown History acetaminophen 325 mg tablet 650 mg (2 x 325 mg) PO Q6H PRN PRN 12/02/23 Unknown Rx Pain 1-10 Or Fever >100.7 #0 tabs ferrous sulfate 325 mg (65 mg 325 mg PO QODAY #30 tabs 04/07/25 Unknown Rx iron) tablet furosemide 40 mg tablet 40 mg PO BIDLX #0 tabs 04/07 Unknown Rx insulin lispro 100 unit/mL See Protocol subcut TIDAC # 0 mL 04/07/25 Unknown Rx subcutaneous pen (Humalog KwikPen (U-100) Insulin) sacubitril 24 mg-valsartan 26 mg 0.5 tab PO BID #0 tab s 04/07/25 Unknown Rx tablet sertraline 50 mg tablet 50 mg PO DAILY #0 tabs 04/07 Unknown Rx spironolactone 25 mg tablet 12.5 mg (1/2 x 25 mg) PO D AILY #0 04/07/25 Unknown Rx tabs Allergy/AdvReac Type Severity Reaction Status Date / Time No Known Allergies Allergy Verified 04/05/25 00:00 Family History Other Cancer Hypertension Surgical History History of permanent cardiac pacemaker placement Social History (Updated 04/07/25 @ 20:[address] Lv Moreno MD) household members: none and other details: Ex lives next door, she has back door entrance into his house. Smoking Status: Never smoker alcohol intake: never substance use type: does not use ROS Constitutional Constitutional: Reports weakness; Denies chills, fever(s) or weight gain ENT HEENT: Denies headache(s), nasal congestion or nasal discharge Cardiovascular Cardiovascular: Denies chest pain or palpitations Respiratory/Chest Respiratory/Chest: Denies cough, excessive phlegm production or shortness of breath with exertion Gastrointestinal Gastrointestinal: Denies abdominal pain, nausea or vomiting Genitourinary Genitourinary: Denies dysuria Musculoskeletal Musculoskeletal: Denies joint pain or joint swelling Integumentary Integumentary: Denies rash or wounds Neurologic Neurologic: Denies focal weakness, numbness or tingling Psychiatric Psychiatric: Denies anxiety, auditory hallucinations, depression, homicidal ideation or suicidal ideation Vital Signs Vital Signs Vital Signs: 04/07/25 16:23 04/07/25 16:23 Temperature 96.3 F L Temperature Source Temporal Pulse Rate 61 Pulse Rhythm Regular Pulse Strength Weak (1+) Respiratory Rate 18 Respiratory Effort Normal Non-Labored Respiratory Depth Normal Respiratory Pattern Normal Blood Pressure 110/65 Blood Pressure Mean 80 Blood Pressure Source Monitor Blood Pressure Position Semi-Fowlers Blood Pressure Location Left Arm Pulse Ox 100 Oxygen Delivery Method Room Air Room Air Weight Weight: 84.141 kg Body Mass Index (BMI) 29.0 Physical Exam Const alert General Appearance: cooperative HEENT normocephalic Eyes PERRL and EOMs intact bilaterally Neck supple, no JVD and no carotid bruits Resp normal respiratory effort, normal air movement and clear to auscultation bilaterally Cardio regular rate and regular rhythm GI normal to inspection, nondistended, normoactive bowel sounds, non-tender and non-distended Extremity normal capillary refill Extremity Narrative: Redness/tenderness bilateral lower extremities. General Extremity: edema bilateral lower extremity Details: moderate Skin no rashes or lesions noted General Skin Exam: no breakdown Psych affect normal Appearance: appropriate Results Lab / Micro Data Labs: Laboratory Results - last 24 hr 04/07/25 16:21: POC Glucose 108 H Assessment & Plan Assessment/Plan (1) Debility: (2) Acute on chronic HFrEF (heart failure with reduced ejection fraction): (3) Acute kidney injury: (4) Rhabdomyolysis: (5) Type 2 diabetes mellitus with hyperglycemia: (6) Essential (primary) hypertension: (7) Hypothyroidism: (8) BPH (benign prostatic hyperplasia): (9) Iron deficiency anemia: (10) Acid reflux: (11) Diabetic polyneuropathy: PLAN: Plan 84 year old male with below past medical history hospitalized for weakness 2/2 acute on chronic HFrEF, acute kidney injury, rhabdomyolysis, complicated by bilateral lower extremity cellulitis, admitted to TCU with debility, here for rehabilitation, strengthening, prior to discharge home alone. * Debility - PT/OT. * Pain - Tylenol 1000mg q6 prn pain (1-10). * Bowel - senna/colace 1 tablet bid, Magnesium citrate 300mL daily prn. * Adult immunization - Administer pneumonia vaccine, covid vaccine, flu vaccine as appropriate. * DVT prophylaxis - Lovenox 30mg sc daily. * Hyperlipidemia - Atorvastatin 40mg qhs. * Bilateral lower extremity cellulitis - Keflex 250mg q8 x 7 days, Doxycycilne 100mg bid x 7 days. * Vitamin B12 deficiency - B12 1000mcg daily. * Iron deficiency anemia - Ferrous sulfate 325mg every other day. * Chronic HFrEF - Metoprolol XL 100m daily, Entresto 24/26mg 1/2 tablet bid, Aldactone 12.5mg daily, Furosemide 40mg bidlx. * Diabetic polyneuropathy - Gabapentin 400mg tid. * Diabetes Mellitus II - Glimepiride 1mg daily. * Hypothyroidism - Levothyroxine 75mcg daily. * Nutrition - MVI 1 tablet daily. * GERD - Pantoprazole 40mg bid. * BPH - Tamsulosin 0.4mg daily. The following psychotropic medication was present on admission: Sertraline 50mg daily. Psychotropic medication therapy is indicated for a diagnosis of: Major Depression. Based on my clinical evaluation, continuation of the medication is necessary at this time. Gradual dose reduction plan (select one): ____ GDR will be attempted. Will monitor patient symptoms and behaviors in response to GDR. __x__ GRD contraindicated. Reason contraindicated: stable chronic custodial use.
[2025-04-07] MEDS: SACUBITRIL/VALSARTAN 24/26 MG TABLET 0.5 EACH PO (20:37)
[2025-04-08 07:05] LABS: Hematocrit 44.5 % (40-54); Hemoglobin 15.1 g/dL (13.0-16.5); Immature Granulocytes Count 0.030 X10^3/uL (0.0-0.0); Mean Corp Hgb Conc 33.9 g/dL (32-36); Mean Corpuscular Volume 85.9 fL (80-94); Mean Platelet Vol. 10.8 fl (6.2-12.0); NRBC Flagged by Analyzer 0 % (0-5); POSITIVE MORPHOLOGY YES; Platelet Count 170 K/mm3 (150-450); RBC Distribution Width CV 20.1 % (11.6-14.6); RBC Distribution Width SD 60.8 fl (35.1-43.9); Red Blood Count 5.18 M/mm3 (4.6-6.2); White Blood Count 4.5 K/mm3 (4.4-11.0)
[2025-04-08 07:18] LABS: Differential Indicated SCAN CRITERIA MET
[2025-04-08 07:26] LABS: Anion Gap 15 (5-15); BUN 36 mg/dL (4-19); BUN/Creat Ratio 16.5 RATIO (10-20); Calcium,Total 8.7 mg/dL (7.6-11.0); Carbon Dioxide 18.6 mmol/L (21.0-32.0); Chloride 102 mmol/L (98-108); Estimated Creatinine Clearance 26.05 ml/min (50-250); Glucose 74 mg/dL (70-99); Potassium 4.0 mmol/L (3.3-5.1)
[2025-04-08 08:11] LABS: Anisocytosis 1+
[2025-04-08 08:57] VITALS: BP 99/54; PULSE 60; RESP 17; TEMP 36.4; O2SAT 94
[2025-04-08] MEDS: 0.9% Saline Lock 10 ML Syringe IV (09:00)
[2025-04-08] MEDS: SACUBITRIL/VALSARTAN 24/26 MG TABLET 0.5 EACH PO ×2 (09:01→20:19)
[2025-04-08 09:02] VITALS: BP 99/54; PULSE 60
--- NOTE | 2025-04-08 10:20 | PHA.CONS_ITS ---
Documented by User: Peterson Fuentes 04/08/25 10:53 TCU RX Drug Regimen Review Subjective/Objective Subjective/Objective Subjective: TCU admission note. 84 year old male with below past medical history hospitalized for weakness 2/2 acute on chronic HFrEF, acute kidney injury, rhabdomyolysis, complicated by bilateral lower extremity cellulitis, admitted to TCU with debility, here for rehabilitation, strengthening, prior to discharge home alone. Objective: Allergies No Known Allergies Allergy (Verified 04/05/25 00:00) Current Medications Generic Name Dose Route Start Last Admin Trade Name Freq PRN Reason Stop Dose Admin Acetaminophen 1,000 mg 04/07/25 20:26 Acetaminophen 500 Mg Tablet PO Q6H PRN PRN Pain Score 1-10 Atorvastatin Calcium 40 mg 04/07/25 22:00 04/07/25 20:38 Atorvastatin Calcium 40 Mg Tablet PO 40 mg QHS MARINE Administration Cephalexin 250 mg 04/07/25 22:00 04/08/25 05:14 Cephalexin 250 Mg Capsule PO 04/14/25 22:01 250 mg Q8 MARINE Administration Cyanocobalamin 1,000 mcg 04/08/25 08:00 04/08/25 09:00 Cyanocobalamin 500 Mcg Tablet PO 1,000 mcg DAILYCM MARINE Administration Doxycycline Monohydrate 100 mg 04/07/25 22:00 04/08/25 09:01 Doxycycline 100 Mg Capsule PO 04/14/25 22:01 100 mg BID MARINE Administration Enoxaparin Sodium 30 mg 04/08/25 06:00 04/08/25 05:10 Enoxaparin 30 Mg/0.3 Ml Syringe SC 30 mg DAILY@0600 MARINE Administration Ferrous Sulfate 325 mg 04/09/25 08:00 Ferrous Sulfate 325 Mg Tablet PO QODAY@0800 MARINE Furosemide 40 mg 04/08/25 06:00 04/08/25 05:14 Furosemide 40 Mg Tablet PO 40 mg BIDLX MARINE Administration Protocol Gabapentin 400 mg 04/07/25 22:00 04/08/25 05:13 Gabapentin 400 Mg Capsule PO 400 mg TID MARINE Administration Glimepiride 1 mg 04/08/25 08:00 04/08/25 09:00 Glimepiride 1 Mg Tablet PO 1 mg DAILYCM MARINE Administration Levothyroxine Sodium 75 mcg 04/08/25 06:00 04/08/25 05:14 Levothyroxine 75 Mcg Tablet PO 75 mcg DAILY@0600 MARINE Administration Magnesium Citrate 300 ml 04/07/25 20:25 Magnesium Citrate 300 Ml PO DAILY PRN Constipation Metoprolol Succinate 100 mg 04/08/25 10:00 04/08/25 09:02 Metoprolol(Xl)Succ 100 Mg Tablet PO Not Given DAILY MARINE Protocol Multivitamins/Minerals 1 tablet 04/08/25 08:00 04/08/25 09:00 Multivitamins,Ther W-Minerals Tablet PO 1 tablet DAILYCM MARINE Administration Pantoprazole Sodium 40 mg 04/07/25 22:00 04/08/25 09:01 Pantoprazole Sodium 40 Mg Tablet PO 40 mg BID MARINE Administration Sacubitril/Valsartan 0.5 each 04/07/25 22:00 04/08/25 09:01 Sacubitril/Valsartan 24/26 Mg Tablet PO 0.5 each BID MARINE Administration Senna/Docusate Sodium 1 tablet 04/07/25 22:00 04/08/25 09:02 Senna/Docusate Sodium 1 Tablet PO Not Given BID MARINE Sertraline HCl 50 mg 04/08/25 10:00 04/08/25 09:02 Sertraline 50 Mg Tablet PO 50 mg DAILY MARINE Administration Sodium Chloride 10 - 40 ml 04/07/25 16:35 04/08/25 09:00 0.9% Saline Lock 10 Ml Syringe IV 10 ml UD PRN Administration SALINE FLUSH Spironolactone 12.5 mg 04/08/25 10:00 04/08/25 09:01 Spironolactone 25 Mg Tablet PO 12.5 mg DAILY MARINE Administration Protocol Tamsulosin HCl 0.4 mg 04/08/25 10:00 04/08/25 09:01 Tamsulosin Hcl 0.4 Mg Capsule PO 0.4 mg DAILY MARINE Administration Tuberculin PPD 0.1 ml 04/15/25 10:00 Tuberculin,Purif.Prot.Deriv. 50 Tu/Ml Vial ID 04/15/25 10:01 X1 ONE Problem List Diabetic polyneuropathy (Acute) Iron deficiency anemia (Acute) BPH (benign prostatic hyperplasia) (Acute) Hypothyroidism (Acute) Essential (primary) hypertension (Acute) Type 2 diabetes mellitus with hyperglycemia (Acute) Acute kidney injury (Acute) Acute on chronic HFrEF (heart failure with reduced ejection fraction) (Chronic) Debility (Acute) Rhabdomyolysis (Acute) Acid reflux (Chronic) Vital Signs Temp Pulse Resp BP Pulse Ox O2 Del Method 97.6 F L 60 17 99/54 L 94 Room Air 04/08/25 08:57 04/08/25 09:02 04/08/25 08:57 04/08/25 09:02 04/08/25 08:57 04/08/25 08:57 Oxygen Delivery Method Room Air Weight: 84.141 kg Body Mass Index (BMI) 29.0 Sodium 136 mmol/L (133-145) 04/08/25 06:40 Potassium 4.0 mmol/L (3.3-5.1) 04/08/25 06:40 Chloride 102 mmol/L (98-108) 04/08/25 06:40 Carbon Dioxide 18.6 mmol/L (21.0-32.0) L 04/08/25 06:40 Anion Gap 15 (5-15) 04/08/25 06:40 BUN 36 mg/dL (4-19) H 04/08/25 06:40 Creatinine 2.15 mg/dL (0.70-1.20) H 04/08/25 06:40 Est GFR (MDRD) Non-Af 29 (>60) L 04/08/25 06:40 BUN/Creatinine Ratio 16.5 RATIO (10-20) 04/08/25 06:40 Glucose 74 mg/dL (70-99) 04/08/25 06:40 Assessment/Plan: 1. Pain: acetaminophen 1000 mg PO Q6H PRN pain (1-10). The patient has not required any PRN doses of acetaminophen so far this admission. Please continue to monitor pain levels, PRN medication usage, and LFTs (AST/ALT = 40/12 U/L on 04/06/25). 2. Bowel: senna/docusate 1 tablet Po BID, magnesium citrate 300 mL PO daily PRN constipation. The patient has not required any PRN doses of magnesium citrate so far this admission, and the patient's last documented bowel movement was on 04/07/25. Please continue to monitor for bowel movements, PRN medication usage, constipation and diarrhea. 3. DVT prophylaxis: enoxaparin 30 mg SC daily. Please continue to monitor for s/s of a DVT such as pain/erythema/swelling in an extremity, for s/s of bleeding/excessive bruising, hemoglobin (Hgb = 15.1 g/dL on 04/08/25), platelet counts (Plt = 170 K/mm3 on 04/08/25), and renal function (serum creatinine = 2.15 mg/dL with creatinine clearance ~ 26 mL/min on 04/08/25). 4. Bilateral lower extremity cellulitis: cephalexin 250 mg PO Q8 through 04/14/25, doxycycline 100 mg PO BID through 04/14/25. Please continue to monitor for s/s of lower extremity infection including redness, purulent discharge, fever (Temp = 97.6 F on 04/08/25), chills, WBC counts (WBC = 4.5 K/mm3 on 04/08/25), as well as renal function (serum creatinine = 2.15 mg/dL with creatinine clearance ~ 26 mL/min on 04/08/25), for diarrhea, and for photosensitivity as well as for GI distress with doxycycline administration. 5. Diabetic polyneuropathy: gabapentin 400 mg PO TID. Please continue to monitor for nerve pain, renal function (serum creatinine = 2.15 mg/dL with creatinine clearance ~ 26 mL/min on 04/08/25), for lower extremity edema, for drowsiness/dizziness, and for syncope/ataxia/falls. 6. Hyperlipidemia: atorvastatin 40 mg PO QHS. Please continue to monitor lipid levels (cholesterol = 152 mg/dL with LDL = 82 mg/dL on 09/27/24), LFTs (AST/ALT = 40/12 U/L on 04/06/25), and for myalgias. 7. Chronic HFrEF: metoprolol succinate 100 mg PO daily, furosemide 40 mg PO BID, Entresto 0.5 tablets PO BID, spironolactone 12.5 mg PO daily. Please continue to monitor for s/s of heart failures such as shortness of breath, pulmonary congestion, JVD, lower extremity edema, as well as heart rates (recent range = 60-65 beats/min), blood pressures (recent range = 94-117/51-72 mmHg), for fatigue, for s/s of dehydration, sodium levels (Na = 136 mmol/L on 04/08/25), potassium levels (K = 4.0 mmol/L on 04/08/25), calcium levels (Ca = 8.7 mg/dL on 04/08/25), for s/s of angioedema, and renal function (serum creatinine = 2.15 mg/dL with creatinine clearance ~ 26 mL/min on 04/08/25). 8. Diabetes Mellitus II: glimepiride 1 mg PO daily with meals. Please continue to monitor blood glucose levels (BG = 69-144 mg/dL), hemoglobin A1C levels (A1C = 6.5% on 09/27/24), for s/s of hypoglycemia, and renal function (serum creatinine = 2.15 mg/dL with creatinine clearance ~ 26 mL/min on 04/08/25). With the patient's current level of renal impairment it would be reasonable to consider avoiding sulfonylureas/glimepiride (recent hypoglycemic event with BG = 69) as well as metformin, and placing the patient on an alternate glycemic lowering regimen. Due to his risk of heart failure would avoid DPP-4 inhibitors, and would recommend perhaps 5-10 units of insulin glargine daily, and titrate to lowest effective dose. 9. Hypothyroidism: levothyroxine 75 mcg PO daily. Please continue to monitor thyroid hormone levels (TSH = 13.7 uIU/mL on 04/05/25), free T4 (T4 = 1.20 ng/dL on 04/06/25), as well as for s/s of hypo/hyperthyroidism. 10. GERD: pantoprazole 40 mg PO BID. Please continue to monitor for s/s of GERD, diarrhea that could indicate clostridium difficile infection, and for s/s of bone resorption such as fractures. 11. BPH: tamsulosin 0.4 mg PO daily. Please continue to monitor for urinary retention and for s/s of orthostasis. 12. Iron deficiency anemia: ferrous sulfate 325 mg PO daily with a meal. Please continue to monitor hemoglobin levels (Hgb = 15.1 g/dL on 04/08/25), as well as iron levels (no recent iron level documented), and for GI distress with iron administration. 13. Vitamin B12 deficiency: cyanocobalamin 1000 mcg PO daily with a meal. Please continue to monitor vitamin B12 levels (B12 = 1777 pg/mL on 12/04/23), and for s/s of vitamin B12 deficiency. 14. Nutrition: multivitamin 1 tablet PO daily. Please continue to monitor overall nutritional status. Assessment/Plan for indications treated with psychotropic medications: 1. Major depression: sertraline 50 mg PO daily. Please see provider note regarding stable chronic long-term therapy GDR not recommended. Monitor for efficacy including resident symptoms, behaviors and indications of distress. Monitor for s/s of depression and for SI. Monitor for tolerability including mental status, cognition, excessive sleepiness, withdrawal or decreased participation in activities and decline in physical functioning. Maximize use of nonpharmacologic/behavioral interventions to facilitate dose reduction or discontinuation as appropriate. Please evaluate the appropriateness of GDR unless contraindicated. If appropriate, GDR should be attempted in 2 separate quarters within the first year of use or admission to TCU. If GDR attempted, monitor resident symptoms/behaviors. Monitor for diarrhea, nausea, headache, anxiety or drowsiness, suicidal thoughts or behaviors (Boxed Warning), symptoms of bleeding, symptoms of serotonin syndrome (including agitation, confusion, hyperreflexia, rigidity/myoclonus, tremor, tachycardia, tachypnea), sodium levels (last Na = 136 mmol/L on 04/08/25). Medical chart and medication regimen reviewed. The following medication irregularities or issues were identified: 1. Diabetes Mellitus II: glimepiride 1 mg PO daily with meals. With the patient's current level of renal impairment it would be reasonable to consider avoiding sulfonylureas/glimepiride (recent hypoglycemic event with BG = 69) as well as metformin, and placing the patient on an alternate glycemic lowering regimen. Due to his risk of heart failure would avoid DPP-4 inhibitors, and would recommend perhaps 5-10 units of insulin glargine daily, and titrate to lowest effective dose. Date Date of Note: 04/08/25 Documented by User: Dr. Lv Moreno MD 04/08/25 13:10 TCU RX Drug Regimen Review Provider Comments Provider responsibility Provider Comments to Recommendations by Pharmacy Disagree: Define (Continue senior living diabetic regimen, defer to PCP.)
--- NOTE | 2025-04-08 10:53 | NURSING ---
Insurance Counsel Note; Activity Asset: Sulaiman Hanna is independent in his choice of daily activities. He prefers to be called Bill. Josh has a smartphone to talk w/family and friends on. watches tv, welcomes visits from others, furnace converter and therapy dog. His family will visits daily and bring him items hey may need. At this time he prefers independent activities over group. Staff will remind him of weekly activities and respect his right to say no.
--- NOTE | 2025-04-08 12:19 | CASEMGMT ---
Social Work Met with pt to complete initial assessment. Introduced self and role. Verified contacts. Discussed code status and pt confirms full code. Educated to [facility] insurance with [employer] 04/11 and continued stay is not guaranteed with each review. Pt's goal is to return home alone in apartment with family support. SW will continue to follow for DC planning. Jayleen Briscoe MENTAL HEALTH PROGRAM MANAGER [employer]
[2025-04-08] MEDS: Tuberculin,Purif.prot.deriv. 50 TU/ML Vial 0.1 ML ID (14:54)
--- NOTE | 2025-04-08 17:40 | NURSING ---
3 kota removed from scalp without incident
[2025-04-08 22:00] VITALS: BP 105/61; PULSE 60
--- NOTE | 2025-04-09 06:45 | NURSING ---
Patient's blood sugar 54 this AM. Patient asymptomatic. Peanut butter, leyla crackers, orange juice given. Rechecked after 15 minutes, blood sugar at 73. Will continue to monitor.
[2025-04-09 06:57] VITALS: BP 117/56; PULSE 62
[2025-04-09 08:20] VITALS: BP 109/63; PULSE 68
[2025-04-09] MEDS: SACUBITRIL/VALSARTAN 24/26 MG TABLET 0.5 EACH PO (08:20)
[2025-04-09] MEDS: Metoprolol(XL)Succ 100 MG Tablet PO (08:20)
[2025-04-09 08:28] VITALS: BP 110/63; PULSE 68; RESP 16; TEMP 36.2; O2SAT 98
[2025-04-09] MEDS: 0.9% Saline Lock 10 ML Syringe IV ×2 (11:48→21:11)
[2025-04-09 14:14] VITALS: BP 104/59; PULSE 64
--- NOTE | 2025-04-09 17:23 | NURSING ---
Addendum entered by Earl Marrero 04/09/25 17:50: PT Nabila.S NOW 77 AND HAS HIS SUPPER. WILL CONTINUE TO MONITOR AND RECHECK. Original Note: PT BLOOD SUGAR 71, OJ GIVEN, WILL RECHECK.
--- NOTE | 2025-04-09 18:40 | NURSING ---
AFTER PT ATE SUPPER BLOOD SUGAR 82. D/C AMARYL. TOLD CLIENT COORDINATOR TO OFFER A SNACK AT BED TIME. CONTINUE TO MONITOR. RN AWARE
[2025-04-09 21:00] VITALS: PULSE 60; RESP 18; O2SAT 98
[2025-04-09] MEDS: Senna/Docusate Sodium 1 Tablet PO (21:10)
[2025-04-09 21:17] VITALS: BP 101/54; PULSE 65
[2025-04-10 04:14] VITALS: PULSE 59; RESP 18; O2SAT 100
[2025-04-10 05:20] VITALS: BP 106/58; PULSE 60
[2025-04-10 09:17] VITALS: BP 105/55; PULSE 61
[2025-04-10] MEDS: Metoprolol(XL)Succ 100 MG Tablet PO (09:17)
[2025-04-10 09:29] VITALS: BP 105/55; PULSE 61; RESP 18; TEMP 36.2; O2SAT 95
[2025-04-10] MEDS: 0.9% Saline Lock 10 ML Syringe IV ×2 (13:37→22:09)
[2025-04-10 13:57] VITALS: BP 100/60; PULSE 58
--- NOTE | 2025-04-10 18:47 | NURSING ---
PT CONTINUES TO HAVE LOW BLOOD SUGARS AND LOW BP. NOTIFIED AND NEW ORDERS TO D/C 100 MG METOPROLOL AND START 50 MG OF METOPROLOL AND D/C ENTRESTO. JAIMIE AWARE
--- NOTE | 2025-04-10 23:59 | NURSING ---
Zuleyka Nascimento, person to notify, called the nurses station wanting updates on patient's plan of care. This nurse provided her with patient updates and answered her questions/concerns regarding changes to medications.
[2025-04-11 05:24] VITALS: BP 121/58; PULSE 69
[2025-04-11 07:42] LABS: Anion Gap 13 (5-15); BUN 40 mg/dL (4-19); BUN/Creat Ratio 18.2 RATIO (10-20); Calcium,Total 8.8 mg/dL (7.6-11.0); Carbon Dioxide 23.2 mmol/L (21.0-32.0); Chloride 101 mmol/L (98-108); Estimated Creatinine Clearance 25.66 ml/min (50-250); Glucose 68 mg/dL (70-99); Potassium 4.1 mmol/L (3.3-5.1)
[2025-04-11 09:27] VITALS: BP 105/64; PULSE 70
[2025-04-11] MEDS: Metoprolol(XL)Succ 50 MG Tablet PO (09:27)
[2025-04-11 15:13] VITALS: BP 107/63; PULSE 66; RESP 16; TEMP 36; O2SAT 97
--- NOTE | 2025-04-11 15:31 | PCA ---
pt told two human relations manager's he was cleaned up this morning but unsure if its true
--- NOTE | 2025-04-11 16:07 | NURSING ---
Daughter spoke with this nurse concerned that patient is no longer on Entresto. This nurse sees that medication was stopped for low BP's and made daughter aware. Daughter stated she would like it to be restarted if possible or that we speak with instant potato processor to make sure it is okay to stop. This nurse provided reassurance that I would talk to Dr. Moreno about matter and daughter denied further needs. Patient also expressed concern about increased swelling to left arm and and wanted to talk to Dr. Moreno about it. Dr. Moreno made aware and Entresto was restarted and Doppler ordered for left arm. Patient is aware.
--- NOTE | 2025-04-11 16:31 | CHAPLAIN ---
Type of Pastoral Visit _x__ Initial Visit ___ Follow-up Visit ___ On-call Visit ___ General Patient Visit ___ Spiritual Assessment ___ Family Conference ___ Bereavement ___ Rapid Response ___ Code Blue ___ Other (describe below) Pastoral Care Referral From ___ Patient _x__ Family ___ Nurse ___ Physician ___ Aoc Plans Intelligence Officer ___ Home Mortgage Disclosure Act Specialist ___ Other (describe below) Sacrament/Intervention _x__ Active listening ___ Anointing ___ Roman Catholic ___ Bereavement ___ Communion ___ Nisa exploration ___ ___ Life review _x__ Prayer ___ Reconciliation ___ Sacrament of Sick _x__ Supportive presence ___ Wedding ___ Other (describe below) Pastoral Comments patient is resting but willing to have a visit; pt says that his back hurts but that is being attended to by the medical people; pt is pleased with TCU and hopeful; pt declares that he has no concerns at this time; pt does engage in some casual conversation; pt willing to have prayers given for his healing
[2025-04-11] MEDS: SACUBITRIL/VALSARTAN 24/26 MG TABLET 0.5 EACH PO ×2 (17:03→21:56)
[2025-04-11] MEDS: 0.9% Saline Lock 10 ML Syringe IV (17:11)
--- NOTE | 2025-04-11 18:23 | NURSING ---
BGL 43 before dinner. Patient requested ice cream and Vera-dunes. 15 min recheck 47. Peanut butter crackers provided and recheck 55. Patient denies more snacks and states he will wait for dinner. 15 min check before dinner 63. After dinner BGL 72. Patient encouraged to have snack before bed.
[2025-04-11 21:50] VITALS: PULSE 68
[2025-04-12 00:18] VITALS: BMI 29.0
[2025-04-12 06:50] VITALS: BP 121/65
[2025-04-12] MEDS: SACUBITRIL/VALSARTAN 24/26 MG TABLET 0.5 EACH PO ×2 (08:18→21:06)
[2025-04-12 08:19] VITALS: BP 100/56; PULSE 61
[2025-04-12] MEDS: Metoprolol(XL)Succ 50 MG Tablet PO (08:19)
--- NOTE | 2025-04-12 08:30 | NURSING ---
TALKED TO ABOUT PT BLOOD SUGARS STAYING TO LOW. NEW ORDER FOR GLUCAGON 1MG PRN. UPDATED PT ON NEW MED ORDER AND PT STATED HE WAS GETTING SOME THING FOR LOW BLOOD SUGARS AT OTHER HOSPITAL. ALSO ASKED PT ABOUT SCD MAKING HIS LEGS HURT PER PURCHASE ANALYST. PT STATED THEY WERE ITCHING HIM. ASKED PT IF WE COULD TRY ROLO WRAPS DURING THE DAY FOR HIS SWELLING,PT STATED WE COULD GIVE THEM A TRY. RN AWARE
[2025-04-12 08:41] VITALS: BP 100/56; PULSE 61; RESP 18; TEMP 36.4; O2SAT 96
[2025-04-12] MEDS: 0.9% Saline Lock 10 ML Syringe IV ×2 (14:04→21:07)
[2025-04-12 14:09] VITALS: BP 102/56; PULSE 59
--- NOTE | 2025-04-12 17:56 | NURSING ---
PT AND DAUGHTER UPDATED ON NEW ORDERS AND DOPPLERS.
[2025-04-12 21:05] VITALS: BP 133/66; PULSE 67
[2025-04-12] MEDS: Lactobacillis Acidophilus 1 CAP PO (21:06)
[2025-04-13] VITALS (7 sets, daily range): BP systolic 94–130; BP diastolic 57–73; PULSE 61–76; RESP 18; TEMP 36.3–36.4; O2SAT 93–98
[2025-04-13] MEDS: Glucagon 1 MG/ML Syringe SC (03:31)
--- NOTE | 2025-04-13 03:47 | NURSING ---
At 0259 patient observed laying face down on floor in front of bed in his room. Last rounded on patient around 0240. Patient observed with bleeding from right eyelid and right hand, hematoma to right cheek. Change in mental status post-fall. Patient normally A/O x3, currently A/O x1 to self. Asked patient what he was trying to do before the fall. Patient answered, I was going to the bathroom. Vitals stable- BP 130/73 Left arm supine, HR 76 bpm, 97% on RA, temp 97.4 temporal, RR 18. Sugar 54, patient is diabetic. New injuries include hematoma to right cheek, cut to right eyelid, skin tears to right hand and right knee. No other new injuries observed. PRN glucagon administered at 0334 in left arm. Patient returned back to bed by TCU staff using Juan lift. Alarms placed to bed and chair, on and functioning. Consulted Dr. Moreno via telephone, send patient ER. Telephone order read-back and verified. Attempted to contact, Zuleyka, person to notify, went to voicemail. Called report to Joce in ER.
--- NOTE | 2025-04-13 03:57 | NURSING ---
Patient off floor to be evaluated in ER, left at 0340 with TCU staff assistance.
--- NOTE | 2025-04-13 04:00 | NURSING ---
Able to contact Sunde, primary contact and daughter of patient, and updated her of patient's fall and transfer to ER to be evaluated d/t injuries.
--- NOTE | 2025-04-13 05:18 | NURSING ---
Spoke with Zuleyka, ex , and updated her on patient's status postfall.
--- NOTE | 2025-04-13 06:33 | NURSING ---
Patient returned to floor around 0600.
[2025-04-13] MEDS: Lactobacillis Acidophilus 1 CAP PO ×2 (08:01→22:19)
[2025-04-13] MEDS: SACUBITRIL/VALSARTAN 24/26 MG TABLET 0.5 EACH PO ×2 (08:03→22:22)
[2025-04-13] MEDS: Metoprolol(XL)Succ 50 MG Tablet PO (08:06)
--- NOTE | 2025-04-13 09:06 | CASEMGMT ---
Addendum entered by Jayleen Briscoe 04/13/25 14:43: SW also discussed in the meeting pt being a candidate for palliative care. SW educated to palliative care services. Family interested. SW provided written explanation of palliative care and list of agencies. SW offered to make referral to [facility] prior to DC. Original Note: Social Work IDT met with dtrShaylee, son in person, and dtr, Sully, participated via conference call. Pt was in the ED until about 0200 and pt sleeping. Family opted not to wake pt for meeting. Discussed patient's progress in PT/OT/SN/RDN. Pt has fluctuated with level of assistance and progress. Family aware. Educated to [facility] insurance with NRD 04/14 and continued stay is not guaranteed with each review. Educated that insurance issues LCD when the pt does not meet criteria to remain on the unit, not when pt returns to PLOF or when pt is ready to DC home alone. Family expressed understanding. SW provided medical alert resources, per SW and pt discussion upon admission. Family also inquired about home delivered meals. SW provided resources. Therapy noted currently, pt is unable to return home alone, but the goal is to improve with therapy and nursing prior to DC. SW discussed having additional support daily if pt returns home. Briefly explained the options are for hiring DIRECTOR OF APPLICATION DEVELOPMENT or AL/SNF, if needed. Family agreed and Shaylee myrick, stated she and Sully has offered for pt to stay with them. Sully spoke directly to this worker with a goldberg tone stating that any DC decisions are to be made with the family prior and this worker is to not be making any DC decisions, and referenced an experience with a past pt that was not a favorable outcome. Sully stated, I want to make that clear, Jayleen. SRIRAM replied with appreciation for clarity, but this worker does not make decisions regarding DC date - the insurance does; this worker does not make DC decisions. The pt is able to make his own decisions and he will be the one making those decisions. Family is also involved in those conversations and decisions. SRIRAM stated this worker's role is to advocate for the pt, share IDT recommendations, and coordinate DC plans even if pt does not follow IDT's recommendations. Sully continued with noting past experience, though stated that's neither here nor there. SW agreed as the focus is on this pt. SW asked family if there were additional questions - family denied. After terminated the phone call, dtr and son apologized for ee's tone and behavior but commended this worker for professionally handling that situation. SW appreciative and offered ongoing assistance with pt's DC planning. Jayleen Briscoe MSW PATIENT RELATIONS MANAGER
--- NOTE | 2025-04-13 16:14 | CASEMGMT ---
Social Work SW completed BIMS () and PHQ-2 () for MDS assessment. Pt also inquiring about the contents of POC meeting since he was asleep. Dtr, , presented to room. SW explained therapy report summary and explained [employer] and review process. Explained the goal is for pt to return home, but additional supports may be needed, such as meals, EMR, or ENVIRONMENTAL ADVISOR/family. Pt expressed understanding. SW will continue to follow. Jayleen Briscoe CPHT WHITE SHOE RAGGER
[2025-04-13] MEDS: Ensure Plus High Protein 120 ML LIQUID PO ×2 (16:41→22:21)
[2025-04-13] MEDS: 0.9% Saline Lock 10 ML Syringe IV ×2 (16:41→22:30)
[2025-04-14 06:15] VITALS: BP 96/52; PULSE 71; RESP 17; O2SAT 91
[2025-04-14] MEDS: Ensure Plus High Protein 120 ML LIQUID PO ×3 (06:15→22:03)
[2025-04-14] MEDS: Lactobacillis Acidophilus 1 CAP PO ×2 (07:33→22:05)
[2025-04-14 07:34] VITALS: BP 103/60; PULSE 70
[2025-04-14] MEDS: Metoprolol(XL)Succ 50 MG Tablet PO (07:34)
[2025-04-14] MEDS: SACUBITRIL/VALSARTAN 24/26 MG TABLET 0.5 EACH PO ×2 (07:34→22:06)
[2025-04-14 08:53] VITALS: PULSE 70; RESP 18; O2SAT 95
[2025-04-14 16:00] VITALS: BP 103/60; PULSE 70; RESP 17; TEMP 36.4; O2SAT 95
[2025-04-14] MEDS: 0.9% Saline Lock 10 ML Syringe IV (22:12)
--- NOTE | 2025-04-14 22:53 | NURSING ---
This HS, pt's BG 84. Pt has order for scheduled glucagon 1 mg/1mL SQ. Ordered clarified with Dr. Moreno via phone. Per Dr. Moreno, glucagon to be given QHS as ordered d/t pt having consistently low BG in mornings.
[2025-04-14] MEDS: Glucagon 1 MG/ML Syringe SC (23:24)
[2025-04-15] MEDS: Cosyntropin 0.25 MG in 0.9% Normal Saline (Pres. free 4 ML 150 MG IV (05:38)
[2025-04-15] MEDS: 0.9% Saline Lock 10 ML Syringe IV (05:39)
[2025-04-15 05:44] LABS: Hematocrit 39.4 % (40-54); Hemoglobin 14.0 g/dL (13.0-16.5); Immature Granulocytes Count 0.020 X10^3/uL (0.0-0.0); Mean Corp Hgb Conc 35.5 g/dL (32-36); Mean Corpuscular Volume 85.7 fL (80-94); Mean Platelet Vol. 10.1 fl (6.2-12.0); NRBC Flagged by Analyzer 0 % (0-5); Platelet Count 143 K/mm3 (150-450); RBC Distribution Width CV 19.0 % (11.6-14.6); RBC Distribution Width SD 58.2 fl (35.1-43.9); Red Blood Count 4.60 M/mm3 (4.6-6.2); White Blood Count 4.1 K/mm3 (4.4-11.0)
[2025-04-15 05:55] VITALS: BP 98/56; PULSE 62; RESP 16; O2SAT 94
[2025-04-15] MEDS: Ensure Plus High Protein 120 ML LIQUID PO ×3 (05:55→17:51)
[2025-04-15 06:14] LABS: Anion Gap 13 (5-15); BUN 45 mg/dL (4-19); BUN/Creat Ratio 21.2 RATIO (10-20); Calcium,Total 8.5 mg/dL (7.6-11.0); Carbon Dioxide 22.0 mmol/L (21.0-32.0); Chloride 103 mmol/L (98-108); Estimated Creatinine Clearance 26.52 ml/min (50-250); Glucose 103 mg/dL (70-99); Potassium 3.5 mmol/L (3.3-5.1)
[2025-04-15 06:24] LABS: CORTISOL AM 8.86 ug/dL (6.02-18.40)
[2025-04-15 08:02] LABS: CORTISOL AM 19.20 ug/dL (6.02-18.40)
--- NOTE | 2025-04-15 08:52 | NURSING ---
Hvac Commercial Salesperson Note; MDS for 09/15/2024 Complete
[2025-04-15] MEDS: SACUBITRIL/VALSARTAN 24/26 MG TABLET 0.5 EACH PO ×2 (09:16→20:22)
[2025-04-15] MEDS: Lactobacillis Acidophilus 1 CAP PO ×2 (09:17→20:22)
[2025-04-15 09:36] VITALS: BP 107/60; PULSE 80
[2025-04-15] MEDS: Metoprolol(XL)Succ 50 MG Tablet PO (09:36)
[2025-04-15 10:25] VITALS: PULSE 79; RESP 16; O2SAT 95
[2025-04-15] MEDS: Tuberculin,Purif.prot.deriv. 50 TU/ML Vial 0.1 ML ID (11:47)
[2025-04-15 13:32] VITALS: BP 107/60; PULSE 79; RESP 16; TEMP 36.4; O2SAT 95
[2025-04-16] MEDS: Ensure Plus High Protein 120 ML LIQUID PO ×3 (05:17→17:09)
[2025-04-16 09:14] VITALS: BP 115/62; PULSE 71; RESP 18; TEMP 36.4; O2SAT 96
[2025-04-16] MEDS: Lactobacillis Acidophilus 1 CAP PO ×2 (09:18→19:38)
[2025-04-16] MEDS: SACUBITRIL/VALSARTAN 24/26 MG TABLET 0.5 EACH PO ×2 (09:19→19:38)
[2025-04-16 09:20] VITALS: BP 115/62; PULSE 71
[2025-04-16] MEDS: Metoprolol(XL)Succ 50 MG Tablet PO (09:20)
[2025-04-16] MEDS: 0.9% Saline Lock 10 ML Syringe IV (12:20)
[2025-04-17 07:57] VITALS: BP 108/68; PULSE 79; RESP 18; TEMP 36.3; O2SAT 97
[2025-04-17] MEDS: Lactobacillis Acidophilus 1 CAP PO ×2 (07:59→19:57)
[2025-04-17 08:00] VITALS: BP 108/68; PULSE 79
[2025-04-17] MEDS: Metoprolol(XL)Succ 50 MG Tablet PO (08:00)
[2025-04-17] MEDS: SACUBITRIL/VALSARTAN 24/26 MG TABLET 0.5 EACH PO ×2 (08:01→19:58)
[2025-04-17 10:00] VITALS: PULSE 75; RESP 17; O2SAT 97
[2025-04-17] MEDS: CARBOXYMETHYLCELLULOSE SODIUM 1 DRP DROPS 2 DRP OPHTHALMIC (14:17)
[2025-04-17] MEDS: 0.9% Saline Lock 10 ML Syringe IV ×2 (14:18→20:02)
[2025-04-17] MEDS: Ensure Plus High Protein 120 ML LIQUID PO ×2 (16:52→19:57)
[2025-04-18 05:35] VITALS: BP 111/56; PULSE 78; RESP 16; O2SAT 95
[2025-04-18] MEDS: Ensure Plus High Protein 120 ML LIQUID PO (05:36)
[2025-04-18 05:53] VITALS: PULSE 78; RESP 16; O2SAT 95
[2025-04-18] MEDS: Lactobacillis Acidophilus 1 CAP PO ×2 (07:56→19:54)
[2025-04-18] MEDS: SACUBITRIL/VALSARTAN 24/26 MG TABLET 0.5 EACH PO ×2 (07:57→19:53)
[2025-04-18 07:59] VITALS: BP 102/58; PULSE 70
[2025-04-18] MEDS: Metoprolol(XL)Succ 50 MG Tablet PO (07:59)
[2025-04-18 08:06] VITALS: BP 102/58; PULSE 70; RESP 18; TEMP 36.4; O2SAT 95
--- NOTE | 2025-04-18 08:07 | NURSING ---
PT STATED TO THIS NURSE THAT HES NOT HUNGRY IN MORNING AFTER HE GETS HIS ENSURE. PT ALSO GETS ENSURE ON HIS TRAYS. WILL NOTIFY DIETARY.
[2025-04-18] MEDS: 0.9% Saline Lock 10 ML Syringe IV (13:56)
[2025-04-18 14:00] VITALS: BP 104/57; PULSE 76; O2SAT 95
--- NOTE | 2025-04-18 14:27 | MDS.RN ---
Information for the MDS was obtained from review of the clinical record, interview of resident, staff, and direct observation of resident?s care.
[2025-04-19] MEDS: Lactobacillis Acidophilus 1 CAP PO ×2 (08:13→19:32)
[2025-04-19 08:48] VITALS: BP 99/56; PULSE 62; RESP 17; TEMP 36.5
--- NOTE | 2025-04-19 14:20 | RAD_ITS ---
PROCEDURE: CHEST PA AND LATERAL 04/19/2025 REASON FOR EXAM: PRODUCTIVE COUGH, SOB TECHNIQUE: Procedure Code: RADCXR Modality: DX Procedure: CHEST PA AND LATERAL COMPARISON: April 01, 2025 FINDINGS: Hardware: A biventricular AICD is in place with leads over the right atrium, right ventricular apex as well as a pacing lead overlying the coronary sinus. Heart: Enlarged. Mediastinum: Aorta is atherosclerotic. Lungs: Central congestion is present. Small volume pleural fluid or pleural thickening left lung base. Bones: The bones are unremarkable. RAD/Chest PA and Lateral IMPRESSION: Cardiac enlargement, congestion. Small volume left pleural fluid. Reading Location: [id number]
--- NOTE | 2025-04-19 14:20 | RAD_ITS ---
PROCEDURE: ABDOMEN SINGLE VIEW 04/19/2025 REASON FOR EXAM: NAUSEA TECHNIQUE: Procedure Code: RADABD Modality: DX Procedure: ABDOMEN SINGLE VIEW COMPARISON: None FINDINGS: Bowel gas: Nondistended air-filled loops of bowel throughout all 4 quadrants of the abdomen suggest ileus. Calcifications: Peripheral calcifications in the abdominal aorta without aneurysm. There is a 3 mm calcification overlying the left renal shadow. Bones: Degenerative bony changes Other: RAD/Abdomen Single View IMPRESSION: Ileus Likely left nephrolithiasis Peripheral calcifications in the abdominal aorta without aneurysm Reading Location: [id number]
--- NOTE | 2025-04-19 15:16 | NURSING ---
Addendum entered by Sonia Troy 04/19/25 15:20: Dr. Moreno updated on chest x-ray and KUB. N.O. received for Soap Suds Enema. Okay to hold Lasix d/t low BP. Orders read back. Original Note: Pt C/O of nausea/vomiting, SOB, and a new productive cough Vitals BP 88/37 SpO2 91% RA Temp 98.[address] Moreno updated. N.O. for Chest X-ray and KUB. Orders read back
[2025-04-19 15:44] VITALS: O2SAT 92
--- NOTE | 2025-04-19 15:44 | CASEMGMT ---
Social Work Insurance issued LCD 04/22, DC 04/23 SW phoned dtr, Gema, to notify of DC date. Educated to IDT's recommendation for not home alone - pt needs CGA for ambulating, CGA-Adrian for tx, min-max for ADLs, thus pt needs physical assistance and cannot be home alone. Family does not want SNF. SW educated to options of hiring KELLER MACHINE OPERATOR in the home, having family assist in his home or pt DC to family's home. Discussed toileting is the biggest barrier for needing assistance. SW explained appeal rights. Dtr electing to appeal and will talk with pt and siblings after appeal for DC planning. - SW spoke with pt at bedside to notify of DC date. Provided NOMNC. Pt agreeable to appeal. Pt is understanding of needing assistance and remaining for further therapy and medical care is most beneficial. - SW received return call from dtr with appeal Updated IDT and HIM. Plan: DC 04/23, pending appeal, destination and needs GRADY HOANG
[2025-04-19] MEDS: 0.9% Saline Lock 10 ML Syringe IV (16:01)
--- NOTE | 2025-04-19 17:00 | DS.PCM_ITS ---
Providers Date of Admission: 04/07/25 Primary Care Physician: Dr. Joseph Durand MD Reason For Visit: FALLS, RHABDO Diagnosis Discharge Diagnosis (1) Debility: Status: Acute Code(s): R53.81 - Other malaise (2) Acute on chronic HFrEF (heart failure with reduced ejection fraction): Status: Chronic Code(s): I50.23 - Acute on chronic systolic (congestive) heart failure (3) Acute kidney injury: Status: Acute Code(s): N17.9 - Acute kidney failure, unspecified (4) Rhabdomyolysis: Status: Acute Code(s): M62.82 - Rhabdomyolysis (5) Type 2 diabetes mellitus with hyperglycemia: Status: Acute Code(s): E11.65 - Type 2 diabetes mellitus with hyperglycemia (6) Essential (primary) hypertension: Status: Acute Code(s): I10 - Essential (primary) hypertension (7) Hypothyroidism: Status: Acute Code(s): E03.9 - Hypothyroidism, unspecified (8) BPH (benign prostatic hyperplasia): Status: Acute Code(s): N40.0 - Benign prostatic hyperplasia without lower urinary tract symptoms (9) Iron deficiency anemia: Status: Acute Code(s): D50.9 - Iron deficiency anemia, unspecified (10) Acid reflux: Status: Chronic Code(s): K21.9 - Gastro-esophageal reflux disease without esophagitis (11) Diabetic polyneuropathy: Status: Acute Code(s): E11.42 - Type 2 diabetes mellitus with diabetic polyneuropathy Plan 84 year old male with below past medical history hospitalized for weakness 2/2 acute on chronic HFrEF, acute kidney injury, rhabdomyolysis, complicated by bilateral lower extremity cellulitis, admitted to TCU with debility, here for rehabilitation, strengthening, prior to discharge home alone. * Debility - PT/OT. * Pain - Tylenol 1000mg q6 prn pain (1-10). * Bowel - senna/colace 1 tablet bid, Magnesium citrate 300mL daily prn. * Adult immunization - Administer pneumonia vaccine, covid vaccine, flu vaccine as appropriate. * DVT prophylaxis - Lovenox 30mg sc daily. * Hyperlipidemia - Atorvastatin 40mg qhs. * Bilateral lower extremity cellulitis - Keflex 250mg q8 x 7 days, Doxycycilne 100mg bid x 7 days. * Vitamin B12 deficiency - B12 1000mcg daily. * Iron deficiency anemia - Ferrous sulfate 325mg every other day. * Chronic HFrEF - Metoprolol XL 100m daily, Entresto 24/26mg 1/2 tablet bid, Aldactone 12.5mg daily, Furosemide 40mg bidlx. * Diabetic polyneuropathy - Gabapentin 400mg tid. * Diabetes Mellitus II - Glimepiride 1mg daily. * Hypothyroidism - Levothyroxine 75mcg daily. * Nutrition - MVI 1 tablet daily. * GERD - Pantoprazole 40mg bid. * BPH - Tamsulosin 0.4mg daily. The following psychotropic medication was present on admission: Sertraline 50mg daily. Psychotropic medication therapy is indicated for a diagnosis of: Major Depression. Based on my clinical evaluation, continuation of the medication is necessary at this time. Gradual dose reduction plan (select one): ____ GDR will be attempted. Will monitor patient symptoms and behaviors in response to GDR. __x__ GRD contraindicated. 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 Medications at Discharge Home Medications levothyroxine 75 mcg tablet 75 mcg PO DAILY thyroid 06/28/21 mecobalamin (vitamin B12) 1,000 mcg chewable tablet (B12 Active) 1,000 mcg PO DAILY anemia 06/28/21 mvwszvhhytzt-ias-msump acid-vit K-lycop 400 mcg-20 mcg-370 mcg tablet (Men's 50 Plus Multivitamin) 1 tab PO DAILY not on pcp med list 06/28/21 tamsulosin 0.4 mg capsule 0.4 mg PO DAILY . 06/28/21 pantoprazole 40 mg tablet,delayed release 40 mg PO BID #120 tabs 09/21/21 gabapentin 400 mg capsule 400 mg PO TID per md office list 11/27/23 ferrous sulfate 325 mg (65 mg iron) tablet 325 mg PO QODAY #30 tabs 04/07/25 sacubitril 24 mg-valsartan 26 mg tablet 0.5 tab PO BID #0 tabs 04/07/25 sertraline 50 mg tablet 50 mg PO DAILY #0 tabs 04/07/25 spironolactone 25 mg tablet 12.5 mg (1/2 x 25 mg) PO DAILY #0 tabs 04/07/25 acetaminophen 500 mg tablet 1,000 mg (2 x 500 mg) PO Q6H PRN PRN Pain Score 1-3 #0 tabs 04/19/25 furosemide 40 mg tablet 40 mg PO BIDLX 30 days #60 tabs 04/19/25 metoprolol succinate 50 mg tablet,extended release 24 hr 50 mg PO DAILY 30 days #30 tabs 04/19/25 tramadol 50 mg tablet 50 mg PO Q6H PRN PRN Pain Score 4-10 Or Pre Pt/Ot 7 days #28 tabs 04/19/25 Hospital Course Operations None Procedures None Summary of Care Provided Minutes Spent on Discharge: 35 Hospital Course: 84 year old male with below past medical history hospitalized for weakness 2/2 acute on chronic HFrEF, acute kidney injury, rhabdomyolysis, complicated by bilateral lower extremity cellulitis, admitted to TCU with debility, here for rehabilitation, strengthening, prior to discharge home alone. Discharge 04/23/2025, pending appeal, destination and needs TBD. Physical Exam Const alert General Appearance: cooperative HEENT normocephalic Eyes PERRL and EOMs intact bilaterally Neck supple, no JVD and no carotid bruits Resp normal respiratory effort, normal air movement and clear to auscultation bilaterally Cardio regular rate and regular rhythm GI normal to inspection, nondistended, normoactive bowel sounds, non-tender and non-distended Extremity normal capillary refill General Extremity: Negative for edema Skin no rashes or lesions noted General Skin Exam: no breakdown Psych affect normal Appearance: appropriate Weight / BMI Weight Weight: 84 kg Body Mass Index (BMI) 29.0 ABG / Lab / Microbiology Data 04/15/25 05:36 04/15/25 05:36 Laboratory: Laboratory Results - last 24 hr 04/18/25 16:48: POC Glucose 148 H 04/18/25 21:26: POC Glucose 145 H 04/19/25 06:11: POC Glucose 87 04/19/25 11:41: POC Glucose 90 04/19/25 16:29: POC Glucose 77 Radiography Diagnostic Testing: Radiology Impression Chest X-Ray 04/19/25 14:20 IMPRESSION: Cardiac enlargement, congestion. Small volume left pleural fluid. Reading Location: [id number] X-Ray 04/19/25 14:20 IMPRESSION: Ileus Likely left nephrolithiasis Peripheral calcifications in the abdominal aorta without aneurysm Reading Location: [id number] D/C Instructions Weight Bearing Status: Weight bearing as tolerated Call your doctor if you observe: Fever of 101 or Higher, Inability to urinate, Inability to have a bowel movement, Shortness of breath, Dizziness, Fainting spells, Swelling in the ankles, Chest pain and Uncontrolled pain DC O2, CPAP, BIPAP Needs Home O2 Discharge instructions: No Additional Instructions: Discharge 04/23/2025, pending appeal, destination and needs TBD. Please Follow Up With: Bushra Woodall MD Meaningful Use Info Meaningful Use Meaningful Use Diagnoses (Choose all that apply): None applicable Discharge Plan Admission Admit Date/Time: 04/07/25 16:05 Primary Reason for Your Visit: Debility. Attending Provider: Lv Moreno Chi Primary Care Provider: Joseph Durand Instructions Additional Instructions / Restrictions: Discharge 04/23/2025, pending appeal, destination and needs TBD. Discharge Orders/Prescriptions Prescriptions: New furosemide 40 mg Tablet 40 mg PO BIDLX 30 Days Qty: 60 0RF metoprolol succinate 50 mg Tablet Extended Release 24 Hr 50 mg PO DAILY 30 Days Qty: 30 0RF tramadol 50 mg Tablet 50 mg PO Q6H PRN PRN (Reason: Pain Score 4-10 Or Pre Pt/Ot) 7 Days Qty: 28 0RF acetaminophen 500 mg Tablet 1,000 mg PO Q6H PRN PRN (Reason: Pain Score 1-3) Qty: 0 0RF Continued pantoprazole 40 mg tablet,delayed release (DR/EC) 40 mg PO BID Qty: 120 3RF levothyroxine 75 mcg Tablet 75 mcg PO DAILY tamsulosin 0.4 mg Capsule 0.4 mg PO DAILY Men's 50 Plus Multivitamin 400-20-370 mcg Tablet 1 tab PO DAILY mecobalamin (vitamin B12) [B12 Active] 1,000 mcg Tablet,Chewable 1,000 mcg PO DAILY gabapentin 400 mg capsule 400 mg PO TID spironolactone 25 mg Tablet 12.5 mg PO DAILY Qty: 0 0RF Rx Instructions: Hold for serum potassium more than 5.0 sertraline 50 mg Tablet 50 mg PO DAILY Qty: 0 0RF sacubitril-valsartan 24-26 mg Tablet 0.5 tab PO BID Qty: 0 0RF Rx Instructions: Hold for SBP less than 110 mmHg ferrous sulfate 325 mg (65 mg iron) tablet 325 mg PO QODAY Qty: 30 0RF Discontinued metoprolol succinate 100 mg Tablet Extended Release 24 Hr 100 mg PO DAILY glimepiride 1 mg tablet 1 mg PO DAILY rosuvastatin 20 mg tablet 20 mg PO DAILY Rx Instructions: source is per pcp med list acetaminophen 325 mg Tablet 650 mg PO Q6H PRN PRN (Reason: Pain 1-10 Or Fever >100.7) Qty: 0 0RF furosemide 40 mg Tablet 40 mg PO BIDLX Qty: 0 0RF insulin lispro [Humalog KwikPen Insulin] 100 unit/mL Insulin Pen See Protocol subcut TIDAC Qty: 0 0RF Protocol: 3. Sliding Scale Insulin Med Dosing Condition: 150-189 mg/dl = 1 unit Condition: 190-229 mg/dl = 2 units Condition: 230-269 mg/dl = 3 units Condition: 270-309 mg/dl = 4 units Condition: 310-349 mg/dl = 5 units Condition: 350-399 mg/dl = 6 units Condition: 400-449 mg/dl = 7 units Condition: Greater than 449 call physician Protocol Text: - Use for Total Daily Dose of Insulin 37-55 units - Obsese, infected, or steroid patients MEDIUM DOSING ALGORITHIM Referrals / Follow Up: Joseph Durand MD [Primary Care Provider, Family Practice] Disposition Disposition (needs filled in before D/C Order can be placed): Home, Self Care
[2025-04-19 19:15] VITALS: BP 94/60; PULSE 64
[2025-04-20 05:30] VITALS: BP 100/61; PULSE 74; RESP 24; TEMP 37.6; O2SAT 87
[2025-04-20 05:32] VITALS: RESP 20; O2SAT 95
[2025-04-20 06:51] LABS: Hematocrit 41.9 % (40-54); Hemoglobin 14.1 g/dL (13.0-16.5); Immature Granulocytes Count 0.050 X10^3/uL (0.0-0.0); Mean Corp Hgb Conc 33.7 g/dL (32-36); Mean Corpuscular Volume 86.7 fL (80-94); Mean Platelet Vol. 10.3 fl (6.2-12.0); NRBC Flagged by Analyzer 0 % (0-5); Platelet Count 155 K/mm3 (150-450); RBC Distribution Width CV 19.9 % (11.6-14.6); RBC Distribution Width SD 59.5 fl (35.1-43.9); Red Blood Count 4.83 M/mm3 (4.6-6.2); White Blood Count 4.8 K/mm3 (4.4-11.0)
[2025-04-20 07:10] LABS: Anion Gap 13 (5-15); BUN 44 mg/dL (4-19); BUN/Creat Ratio 21.3 RATIO (10-20); Calcium,Total 8.8 mg/dL (7.6-11.0); Carbon Dioxide 23.8 mmol/L (21.0-32.0); Chloride 103 mmol/L (98-108); Estimated Creatinine Clearance 26.91 ml/min (50-250); Glucose 95 mg/dL (70-99); Potassium 4.4 mmol/L (3.3-5.1)
[2025-04-20] MEDS: levoFLOXacin IV 750 MG/150 ML BAG 100 MG IV (07:16)
--- NOTE | 2025-04-20 08:24 | CASEMGMT ---
Social Work HIM processed the medical records and [facility], along with updated labs and med list d/t new dx of COVID and start of IV ATB. - SW phoned dtr to ensure she was aware. Dtr tearful and emotional but voiced being realistic to understanding pt's comorbidities may alter his prognosis. SW offered at any time pt wants to elect comfort measures, this worker can assist with coordination. Until then, therapy will treat pt in his room, and family can visit with proper PPE. SW provided support. Dtr appreciative. SW noted pt's code status is full code and this worker will speak with pt about his wishes. Dtr stated if he doesn't change it, and something happens, she will stop treatment as HCPOA. SW voiced understanding. SW will continue to follow. Jayleen Briscoe MSW BELT MACHINE OPERATOR
[2025-04-20] MEDS: Lactobacillis Acidophilus 1 CAP PO ×2 (09:22→21:57)
[2025-04-20] MEDS: Remdesivir 200 MG in 0.9% Normal Saline (250mL Bag) 210 ML 250 MG IV (09:25)
[2025-04-20 09:39] VITALS: BP 97/53; PULSE 64
[2025-04-20 13:37] VITALS: BP 95/51
--- NOTE | 2025-04-20 15:16 | CASEMGMT ---
Social Work SW completed advance directives with patient. original and copies for each child provided to pt. Copies placed on chart and for HIM Jayleen Briscoe MSW RN SOCIAL SERVICES
[2025-04-20 15:31] VITALS: O2SAT 94
[2025-04-20] MEDS: SACUBITRIL/VALSARTAN 24/26 MG TABLET 0.5 EACH PO (21:57)
[2025-04-20] MEDS: 0.9% Saline Lock 10 ML Syringe IV (21:59)
[2025-04-20] MEDS: Senna/Docusate Sodium 1 Tablet PO (21:59)
[2025-04-21 06:00] VITALS: BP 112/70; PULSE 85; RESP 16; O2SAT 95
[2025-04-21 07:41] LABS: Hematocrit 44.7 % (40-54); Hemoglobin 15.1 g/dL (13.0-16.5); Mean Corp Hgb Conc 33.8 g/dL (32-36); Mean Corpuscular Volume 87.5 fL (80-94); Mean Platelet Vol. 11.1 fl (6.2-12.0); POSITIVE MORPHOLOGY YES; Platelet Count 169 K/mm3 (150-450); RBC Distribution Width CV 20.3 % (11.6-14.6); RBC Distribution Width SD 62.3 fl (35.1-43.9); Red Blood Count 5.11 M/mm3 (4.6-6.2); White Blood Count 5.7 K/mm3 (4.4-11.0)
[2025-04-21 07:52] LABS: AST(SGOT) 59 U/L (<=37); Alanine Aminotransfer ALT/SGPT 33 U/L (<=46); Albumin, Serum 3.5 g/dL (3.4-4.8); Alkaline Phosphatase 246 U/L (40-129); Anion Gap 15 (5-15); BUN 46 mg/dL (4-19); BUN/Creat Ratio 22.1 RATIO (10-20); Calcium,Total 8.8 mg/dL (7.6-11.0); Carbon Dioxide 23.4 mmol/L (21.0-32.0); Chloride 99 mmol/L (98-108); Estimated Creatinine Clearance 26.91 ml/min (50-250); Globulin 3.0 g/dL (2.2-4.2); Glucose 96 mg/dL (70-99); Potassium 4.3 mmol/L (3.3-5.1)
[2025-04-21 07:58] LABS: Scan Indicated on CBC? Y/N YES- FLAGS NOTED
--- NOTE | 2025-04-21 08:46 | MDS.RN ---
Information for the MDS was obtained from review of the clinical record, interview of resident, staff, and direct observation of resident?s care.
[2025-04-21] MEDS: SACUBITRIL/VALSARTAN 24/26 MG TABLET 0.5 EACH PO ×2 (08:56→22:12)
[2025-04-21] MEDS: Lactobacillis Acidophilus 1 CAP PO ×2 (08:58→22:13)
[2025-04-21] MEDS: Remdesivir 100 MG in 0.9% Normal Saline (250mL Bag) 230 ML 250 MG IV (09:04)
[2025-04-21] MEDS: 0.9% Normal Saline (250mL Bag) 250 ML 15 ML IV (09:04)
[2025-04-21 09:12] VITALS: BP 105/51; PULSE 68; RESP 18; TEMP 36.5; O2SAT 95
[2025-04-21] MEDS: Metoprolol(XL)Succ 50 MG Tablet PO (09:12)
[2025-04-21 14:49] VITALS: BP 102/62; PULSE 66
--- NOTE | 2025-04-21 15:27 | CASEMGMT ---
Social Work SW received fax notification that pt won his appeal. SW phoned dtr to ensure she was aware. Dtr confirmed. Dtr stated well does that even matter? SW explained insurance still is the one deciding his coverage/DC date, and COVID is not necessarily a reason for insurance to approve the stay. Pt has to still present skilled need - which was the IV ATB. SW stressed family still needs to be planning for DC because the outcome will not be changing that pt cannot return home alone. Dtr expressed understanding and will update the family. SW will continue to follow. Jayleen Briscoe GENERAL CONTRACTOR RAIL TECHNICIAN
[2025-04-21] MEDS: 0.9% Saline Lock 10 ML Syringe IV (22:10)
[2025-04-22 06:06] LABS: Hematocrit 38.4 % (40-54); Hemoglobin 13.4 g/dL (13.0-16.5); Immature Granulocytes Count 0.020 X10^3/uL (0.0-0.0); Mean Corp Hgb Conc 34.9 g/dL (32-36); Mean Corpuscular Volume 85.1 fL (80-94); Mean Platelet Vol. 10.6 fl (6.2-12.0); NRBC Flagged by Analyzer 0 % (0-5); Platelet Count 144 K/mm3 (150-450); RBC Distribution Width CV 19.9 % (11.6-14.6); RBC Distribution Width SD 60.4 fl (35.1-43.9); Red Blood Count 4.51 M/mm3 (4.6-6.2); White Blood Count 3.4 K/mm3 (4.4-11.0)
[2025-04-22 06:24] LABS: Anion Gap 14 (5-15); BUN 47 mg/dL (4-19); BUN/Creat Ratio 24.0 RATIO (10-20); Calcium,Total 7.9 mg/dL (7.6-11.0); Carbon Dioxide 20.5 mmol/L (21.0-32.0); Chloride 100 mmol/L (98-108); Estimated Creatinine Clearance 28.85 ml/min (50-250); Glucose 85 mg/dL (70-99); Potassium 3.9 mmol/L (3.3-5.1)
[2025-04-22 06:44] VITALS: BP 112/56; PULSE 61; RESP 18; O2SAT 97
[2025-04-22] MEDS: Lactobacillis Acidophilus 1 CAP PO ×2 (10:13→20:58)
[2025-04-22] MEDS: SACUBITRIL/VALSARTAN 24/26 MG TABLET 0.5 EACH PO ×2 (10:16→20:57)
[2025-04-22] MEDS: Remdesivir 100 MG in 0.9% Normal Saline (250mL Bag) 230 ML 250 MG IV (10:17)
[2025-04-22 10:18] VITALS: PULSE 61
[2025-04-22] MEDS: Metoprolol(XL)Succ 50 MG Tablet PO (10:18)
[2025-04-22 16:30] VITALS: BP 108/58; PULSE 68; RESP 17; TEMP 36.4; O2SAT 97
[2025-04-23 10:45] VITALS: BP 112/65; PULSE 63; RESP 17; TEMP 36.5
[2025-04-23] MEDS: Lactobacillis Acidophilus 1 CAP PO ×2 (10:51→22:47)
[2025-04-23] MEDS: SACUBITRIL/VALSARTAN 24/26 MG TABLET 0.5 EACH PO ×2 (10:52→22:45)
[2025-04-23] MEDS: Senna/Docusate Sodium 1 Tablet PO ×2 (10:53→22:46)
[2025-04-23] MEDS: Remdesivir 100 MG in 0.9% Normal Saline (250mL Bag) 230 ML 250 MG IV (10:53)
[2025-04-23 11:12] VITALS: BP 112/65; PULSE 63
[2025-04-23] MEDS: Metoprolol(XL)Succ 50 MG Tablet PO (11:12)
[2025-04-23] MEDS: 0.9% Saline Lock 10 ML Syringe IV (22:48)
[2025-04-23 22:54] VITALS: PULSE 72; RESP 18; O2SAT 97
[2025-04-24 05:58] VITALS: PULSE 64; RESP 18; O2SAT 95
[2025-04-24] MEDS: Lactobacillis Acidophilus 1 CAP PO ×2 (10:29→21:36)
[2025-04-24] MEDS: Remdesivir 100 MG in 0.9% Normal Saline (250mL Bag) 230 ML 250 MG IV (10:32)
[2025-04-24] MEDS: SACUBITRIL/VALSARTAN 24/26 MG TABLET 0.5 EACH PO ×2 (10:32→21:37)
[2025-04-24] MEDS: Senna/Docusate Sodium 1 Tablet PO ×2 (10:33→21:37)
[2025-04-24 11:01] VITALS: BP 108/68; PULSE 60
[2025-04-24] MEDS: Metoprolol(XL)Succ 50 MG Tablet PO (11:01)
[2025-04-24 11:55] VITALS: BP 108/68; PULSE 60; RESP 17; TEMP 36.3; O2SAT 94
[2025-04-24] MEDS: 0.9% Saline Lock 10 ML Syringe IV (21:38)
[2025-04-25] MEDS: SACUBITRIL/VALSARTAN 24/26 MG TABLET 0.5 EACH PO ×2 (11:08→20:49)
[2025-04-25] MEDS: Lactobacillis Acidophilus 1 CAP PO ×2 (11:09→20:48)
[2025-04-25] MEDS: Senna/Docusate Sodium 1 Tablet PO (11:10)
[2025-04-25 11:26] VITALS: PULSE 61
[2025-04-25] MEDS: Metoprolol(XL)Succ 50 MG Tablet PO (11:26)
[2025-04-25 11:27] VITALS: BP 109/64; PULSE 61; RESP 18; TEMP 36.3; O2SAT 96
[2025-04-25 11:44] VITALS: BP 105/69; BP 111/66; BP 115/66; PULSE 56; PULSE 59; PULSE 66
[2025-04-25 12:20] VITALS: BMI 29.0
[2025-04-25 13:01] LABS: Anion Gap 15 (5-15); BUN 48 mg/dL (4-19); BUN/Creat Ratio 22.0 RATIO (10-20); Calcium,Total 8.7 mg/dL (7.6-11.0); Carbon Dioxide 21.5 mmol/L (21.0-32.0); Chloride 100 mmol/L (98-108); Estimated Creatinine Clearance 25.69 ml/min (50-250); Glucose 117 mg/dL (70-99); Potassium 4.3 mmol/L (3.3-5.1)
[2025-04-25] MEDS: CARBOXYMETHYLCELLULOSE SODIUM 1 DRP DROPS 2 DRP OPHTHALMIC (14:46)
[2025-04-25] MEDS: 0.9% Saline Lock 10 ML Syringe IV (20:51)
[2025-04-26] MEDS: SACUBITRIL/VALSARTAN 24/26 MG TABLET 0.5 EACH PO ×2 (09:46→20:53)
[2025-04-26 09:50] VITALS: PULSE 64
[2025-04-26] MEDS: Lactobacillis Acidophilus 1 CAP PO ×2 (09:50→20:53)
[2025-04-26] MEDS: Metoprolol(XL)Succ 50 MG Tablet PO (09:50)
[2025-04-26] MEDS: Senna/Docusate Sodium 1 Tablet PO (09:51)
[2025-04-26 12:00] VITALS: BMI 29.1
[2025-04-26 16:00] VITALS: BP 109/57; PULSE 65; RESP 18; TEMP 36.4; O2SAT 96
--- NOTE | 2025-04-26 18:00 | NURSING ---
Patient remains in isolation precautions due to covid and all treatment is provided in room.
[2025-04-26] MEDS: 0.9% Saline Lock 10 ML Syringe IV (20:54)
[2025-04-26 21:10] VITALS: BP 142/82; PULSE 60; O2SAT 99
--- NOTE | 2025-04-26 22:27 | NURSING ---
All patient care completed in patient's room per COVID precautions.
[2025-04-27 05:31] VITALS: PULSE 60; RESP 18; O2SAT 99
[2025-04-27] MEDS: Lactobacillis Acidophilus 1 CAP PO ×2 (09:24→21:56)
[2025-04-27] MEDS: SACUBITRIL/VALSARTAN 24/26 MG TABLET 0.5 EACH PO ×2 (09:24→21:57)
[2025-04-27 09:25] VITALS: PULSE 65
[2025-04-27] MEDS: Metoprolol(XL)Succ 50 MG Tablet PO (09:25)
[2025-04-27] MEDS: CARBOXYMETHYLCELLULOSE SODIUM 1 DRP DROPS 2 DRP OPHTHALMIC (09:30)
[2025-04-27 09:37] VITALS: BP 117/65; PULSE 60; RESP 18; TEMP 36.4; O2SAT 91
--- NOTE | 2025-04-27 09:47 | NURSING ---
All care provided in room due to isolation for Covid.
--- NOTE | 2025-04-27 10:03 | CASEMGMT ---
Addendum entered by Jayleen Briscoe 04/27/25 13:39: Received faxed medical records request and sent to HIM to process. - DENC provided to pt. Sent to HIM. Addendum entered by Jayleen Briscoe 04/27/25 11:24: SW received call from other dtr, , stating she is going to file the appeal. SW will await notification from [facility]. Original Note: Social Work Insurance issued LCD /, DC / SW phoned Gema dtr, to inform of NOMNC. Explained appeal rights. Dtr was in the middle of a work meeting and unsure of appealing or DC plans. SW provided appeal information again in case she decides to appeal after speaking with pt and siblings. Dtr to notify this worker of plan. - SRIRAM donned proper PPE and spoke with pt at bedside. Provided NOMNC and explained conversation with dtr. SRIRAM discussed pt DC to a dtr's house for care temporarily before being able to return home with ongoing therapy. Pt agreeable if that is the plan. SW will notify of plans. Plan: DC 04/30, appeal and destination/needs TBD Jayleen Briscoe TRAVERSE ROD ASSEMBLER MIXER LEVER OPERATOR
[2025-04-27] MEDS: 0.9% Saline Lock 10 ML Syringe IV ×2 (14:12→21:55)
--- NOTE | 2025-04-27 17:01 | NURSING ---
Records faxed to [facility], plan is to meet with family at 330 pm tomorrow
--- NOTE | 2025-04-27 19:42 | DS.PCM_ITS ---
Providers Date of Admission: 04/07/25 Primary Care Physician: Dr. Joseph Durand MD Reason For Visit: FALLS, RHABDO Diagnosis Discharge Diagnosis (1) Debility: Status: Acute Code(s): R53.81 - Other malaise (2) Acute on chronic HFrEF (heart failure with reduced ejection fraction): Status: Resolved Code(s): I50.23 - Acute on chronic systolic (congestive) heart failure (3) Acute kidney injury: Status: Resolved Code(s): N17.9 - Acute kidney failure, unspecified (4) Rhabdomyolysis: Status: Resolved Code(s): M62.82 - Rhabdomyolysis (5) Type 2 diabetes mellitus with hyperglycemia: Status: Acute Code(s): E11.65 - Type 2 diabetes mellitus with hyperglycemia (6) Essential (primary) hypertension: Status: Acute Code(s): I10 - Essential (primary) hypertension (7) Hypothyroidism: Status: Acute Code(s): E03.9 - Hypothyroidism, unspecified (8) BPH (benign prostatic hyperplasia): Status: Acute Code(s): N40.0 - Benign prostatic hyperplasia without lower urinary tract symptoms (9) Iron deficiency anemia: Status: Acute Code(s): D50.9 - Iron deficiency anemia, unspecified (10) Acid reflux: Status: Chronic Code(s): K21.9 - Gastro-esophageal reflux disease without esophagitis (11) Diabetic polyneuropathy: Status: Acute Code(s): E11.42 - Type 2 diabetes mellitus with diabetic polyneuropathy Plan 84 year old male with below past medical history hospitalized for weakness 2/2 acute on chronic HFrEF, acute kidney injury, rhabdomyolysis, complicated by bilateral lower extremity cellulitis, admitted to TCU with debility, here for rehabilitation, strengthening, prior to discharge home alone. * Debility - PT/OT. * Pain - Tylenol 1000mg q6 prn pain (1-10). * Bowel - senna/colace 1 tablet bid, Magnesium citrate 300mL daily prn. * Adult immunization - Administer pneumonia vaccine, covid vaccine, flu vaccine as appropriate. * DVT prophylaxis - Lovenox 30mg sc daily. * Hyperlipidemia - Atorvastatin 40mg qhs. * Bilateral lower extremity cellulitis - Keflex 250mg q8 x 7 days, Doxycycilne 100mg bid x 7 days. * Vitamin B12 deficiency - B12 1000mcg daily. * Iron deficiency anemia - Ferrous sulfate 325mg every other day. * Chronic HFrEF - Metoprolol XL 100m daily, Entresto 24/26mg 1/2 tablet bid, Aldactone 12.5mg daily, Furosemide 40mg bidlx. * Diabetic polyneuropathy - Gabapentin 400mg tid. * Diabetes Mellitus II - Glimepiride 1mg daily. * Hypothyroidism - Levothyroxine 75mcg daily. * Nutrition - MVI 1 tablet daily. * GERD - Pantoprazole 40mg bid. * BPH - Tamsulosin 0.4mg daily. The following psychotropic medication was present on admission: Sertraline 50mg daily. Psychotropic medication therapy is indicated for a diagnosis of: Major Depression. Based on my clinical evaluation, continuation of the medication is necessary at this time. Gradual dose reduction plan (select one): ____ GDR will be attempted. Will monitor patient symptoms and behaviors in response to GDR. __x__ GRD contraindicated. Reason contraindicated: stable chronic senior living use. Medications at Discharge Home Medications levothyroxine 75 mcg tablet 75 mcg PO DAILY thyroid 06/28/21 mecobalamin (vitamin B12) 1,000 mcg chewable tablet (B12 Active) 1,000 mcg PO DAILY anemia 06/28/21 ufxjgraxnyth-oqi-ilxlk acid-vit K-lycop 400 mcg-20 mcg-370 mcg tablet (Men's 50 Plus Multivitamin) 1 tab PO DAILY not on pcp med list 06/28/21 tamsulosin 0.4 mg capsule 0.4 mg PO DAILY . 06/28/21 pantoprazole 40 mg tablet,delayed release 40 mg PO BID #120 tabs 09/21/21 gabapentin 400 mg capsule 400 mg PO TID per md office list 11/27/23 ferrous sulfate 325 mg (65 mg iron) tablet 325 mg PO QODAY #30 tabs 04/07/25 sacubitril 24 mg-valsartan 26 mg tablet 0.5 tab PO BID #0 tabs 04/07/25 sertraline 50 mg tablet 50 mg PO DAILY #0 tabs 04/07/25 spironolactone 25 mg tablet 12.5 mg (1/2 x 25 mg) PO DAILY #0 tabs 04/07/25 acetaminophen 500 mg tablet 1,000 mg (2 x 500 mg) PO Q6H PRN PRN Pain Score 1-3 #0 tabs 04/19/25 furosemide 40 mg tablet 40 mg PO BIDLX 30 days #60 tabs 04/19/25 metoprolol succinate 50 mg tablet,extended release 24 hr 50 mg PO DAILY 30 days #30 tabs 04/19/25 tramadol 50 mg tablet 50 mg PO Q6H PRN PRN Pain Score 4-10 Or Pre Pt/Ot 7 days #28 tabs 04/19/25 Hospital Course Operations None Procedures None Summary of Care Provided Minutes Spent on Discharge: 35 Hospital Course: 84 year old male with below past medical history hospitalized for weakness 2/2 acute on chronic HFrEF, acute kidney injury, rhabdomyolysis, complicated by bilateral lower extremity cellulitis, admitted to TCU with debility, here for rehabilitation, strengthening, prior to discharge home alone. 04/20/2025 covid19 - Treated with Remdesivir, Dexamethasone, resolved. 04/28/2025 Patient/family meeting with [facility]. Plan: DC 04/30, appeal and destination/needs TBD Physical Exam Const alert General Appearance: cooperative HEENT normocephalic Eyes PERRL and EOMs intact bilaterally Neck supple, no JVD and no carotid bruits Resp normal respiratory effort, normal air movement and clear to auscultation bilaterally Cardio regular rate and regular rhythm GI normal to inspection, nondistended, normoactive bowel sounds, non-tender and non-distended Extremity normal capillary refill General Extremity: Negative for edema Skin no rashes or lesions noted General Skin Exam: no breakdown Psych affect normal Appearance: appropriate Weight / BMI Weight Weight: 84.323 kg Body Mass Index (BMI) 29.1 ABG / Lab / Microbiology Data 04/22/25 05:27 04/25/25 12:22 Laboratory: Laboratory Results - last 24 hr 04/26/25 21:11: POC Glucose 179 H 04/27/25 06:19: POC Glucose 120 H 04/27/25 12:00: POC Glucose 129 H 04/27/25 16:20: POC Glucose 209 H Microbiology: Microbiology 04/20/25 09:30 Mucosa - Nasopharyngeal Respiratory Panel (PCR) - Final 04/20/25 04:00 Nasal Secretion SARS-CoV-2 Antigen (Rapid) - Final SARS-CoV-2 (COVID 19) D/C Instructions Discharge Activity: Return to Normal Activity, May Shower and Use Walker Weight Bearing Status: Weight bearing as tolerated Call your doctor if you observe: Fever of 101 or Higher, Inability to urinate, Inability to have a bowel movement, Shortness of breath, Dizziness, Fainting spells, Swelling in the ankles, Chest pain and Uncontrolled pain DC O2, CPAP, BIPAP Needs Home O2 Discharge instructions: No Additional Instructions: Plan: DC 04/30, appeal and destination/needs TBD Please Follow Up With: Bushra Woodall MD When: TBD. Meaningful Use Info Meaningful Use Meaningful Use Diagnoses (Choose all that apply): None applicable Discharge Plan Admission Admit Date/Time: 04/07/25 16:05 Primary Reason for Your Visit: Debility. Attending Provider: Lv Moreno Chi Primary Care Provider: Joseph Durand Instructions Additional Instructions / Restrictions: Plan: DC 04/30, appeal and destination/needs TBD Discharge Orders/Prescriptions Prescriptions: New furosemide 40 mg Tablet 40 mg PO BIDLX 30 Days Qty: 60 0RF metoprolol succinate 50 mg Tablet Extended Release 24 Hr 50 mg PO DAILY 30 Days Qty: 30 0RF tramadol 50 mg Tablet 50 mg PO Q6H PRN PRN (Reason: Pain Score 4-10 Or Pre Pt/Ot) 7 Days Qty: 28 0RF acetaminophen 500 mg Tablet 1,000 mg PO Q6H PRN PRN (Reason: Pain Score 1-3) Qty: 0 0RF Continued pantoprazole 40 mg tablet,delayed release (DR/EC) 40 mg PO BID Qty: 120 3RF levothyroxine 75 mcg Tablet 75 mcg PO DAILY tamsulosin 0.4 mg Capsule 0.4 mg PO DAILY Men's 50 Plus Multivitamin 400-20-370 mcg Tablet 1 tab PO DAILY mecobalamin (vitamin B12) [B12 Active] 1,000 mcg Tablet,Chewable 1,000 mcg PO DAILY gabapentin 400 mg capsule 400 mg PO TID spironolactone 25 mg Tablet 12.5 mg PO DAILY Qty: 0 0RF Rx Instructions: Hold for serum potassium more than 5.0 sertraline 50 mg Tablet 50 mg PO DAILY Qty: 0 0RF sacubitril-valsartan 24-26 mg Tablet 0.5 tab PO BID Qty: 0 0RF Rx Instructions: Hold for SBP less than 110 mmHg ferrous sulfate 325 mg (65 mg iron) tablet 325 mg PO QODAY Qty: 30 0RF Discontinued metoprolol succinate 100 mg Tablet Extended Release 24 Hr 100 mg PO DAILY glimepiride 1 mg tablet 1 mg PO DAILY rosuvastatin 20 mg tablet 20 mg PO DAILY Rx Instructions: source is per pcp med list acetaminophen 325 mg Tablet 650 mg PO Q6H PRN PRN (Reason: Pain 1-10 Or Fever >100.7) Qty: 0 0RF furosemide 40 mg Tablet 40 mg PO BIDLX Qty: 0 0RF insulin lispro [Humalog KwikPen Insulin] 100 unit/mL Insulin Pen See Protocol subcut TIDAC Qty: 0 0RF Protocol: 3. Sliding Scale Insulin Med Dosing Condition: 150-189 mg/dl = 1 unit Condition: 190-229 mg/dl = 2 units Condition: 230-269 mg/dl = 3 units Condition: 270-309 mg/dl = 4 units Condition: 310-349 mg/dl = 5 units Condition: 350-399 mg/dl = 6 units Condition: 400-449 mg/dl = 7 units Condition: Greater than 449 call physician Protocol Text: - Use for Total Daily Dose of Insulin 37-55 units - Obsese, infected, or steroid patients MEDIUM DOSING ALGORITHIM Referrals / Follow Up: Joseph Durand MD [Primary Care Provider, Family Practice] Disposition Disposition (needs filled in before D/C Order can be placed): Home, Self Care
[2025-04-27] MEDS: Senna/Docusate Sodium 1 Tablet PO (21:55)
[2025-04-27 22:17] VITALS: BP 124/73; PULSE 60
--- NOTE | 2025-04-28 02:10 | NURSING ---
All patient care provided in patient's room d/t COVID precautions.
[2025-04-28 05:15] VITALS: PULSE 65; RESP 18; O2SAT 97
[2025-04-28 07:14] VITALS: O2SAT 97
[2025-04-28] MEDS: Lactobacillis Acidophilus 1 CAP PO ×2 (10:04→21:06)
[2025-04-28] MEDS: SACUBITRIL/VALSARTAN 24/26 MG TABLET 0.5 EACH PO ×2 (10:05→21:06)
[2025-04-28] MEDS: Senna/Docusate Sodium 1 Tablet PO (10:06)
[2025-04-28 10:20] VITALS: BP 114/84; PULSE 63; RESP 17; TEMP 36.3; O2SAT 99
[2025-04-28 10:30] VITALS: BP 114/84; PULSE 63
[2025-04-28] MEDS: Metoprolol(XL)Succ 50 MG Tablet PO (10:30)
--- NOTE | 2025-04-28 11:01 | CASEMGMT ---
Social Work SW received fax notification from [facility] that pt lost his appeal. SW phoned dtr, Gema, to inform her. Gema had not received notification yet. SW inquired if family has discussed the DC plan. Gema replied, yes, but we aren't ready to share it with you. Sorry. But we are just besides ourselves right now. We feel a bit short-changed with [pt] falling under the hospital's watch, getting COVID under the hospital's watch and we feel he would be much better off right now if he hadn't had those setbacks. We are taking him home, let's just put it that way, that's all you need to know. SRIRAM replied that once dtr is ready to share, this worker can assist with coordinating HHC and will need to know the address where pt is discharging to, and if he needs any DME. Gema replied, well we [referring to and ] are both trying to work right now because we had to take off a lot of work for [the pt] and we had the flu, so I will get you an answer when we have time. SRIRAM thanked dtr. Plan: DC 04/30 to community, needs and location to be shared by family Jayleen Briscoe SOFTWARE MAINTENANCE ENGINEER ULTRASOUND SUPERVISOR
--- NOTE | 2025-04-28 14:00 | NURSING ---
continued isolation for covid- all care performed in room
[2025-04-28] MEDS: 0.9% Saline Lock 10 ML Syringe IV (21:09)
[2025-04-29 04:58] LABS: Hematocrit 41.9 % (40-54); Hemoglobin 14.4 g/dL (13.0-16.5); Immature Granulocytes Count 0.050 X10^3/uL (0.0-0.0); Mean Corp Hgb Conc 34.4 g/dL (32-36); Mean Corpuscular Volume 86.2 fL (80-94); Mean Platelet Vol. 11.1 fl (6.2-12.0); NRBC Flagged by Analyzer 0 % (0-5); POSITIVE DIFFERENTIAL YES; Platelet Count 171 K/mm3 (150-450); RBC Distribution Width CV 19.9 % (11.6-14.6); RBC Distribution Width SD 60.5 fl (35.1-43.9); Red Blood Count 4.86 M/mm3 (4.6-6.2); White Blood Count 4.4 K/mm3 (4.4-11.0)
[2025-04-29 05:35] LABS: Anion Gap 11 (5-15); BUN 46 mg/dL (4-19); BUN/Creat Ratio 23.5 RATIO (10-20); Calcium,Total 8.2 mg/dL (7.6-11.0); Carbon Dioxide 22.5 mmol/L (21.0-32.0); Chloride 100 mmol/L (98-108); Estimated Creatinine Clearance 28.90 ml/min (50-250); Glucose 126 mg/dL (70-99); Potassium 3.8 mmol/L (3.3-5.1)
--- NOTE | 2025-04-29 05:41 | NURSING ---
Continued isolation precautions for COVID this shift. All care performed in room.
[2025-04-29 07:15] VITALS: O2SAT 95
[2025-04-29] MEDS: SACUBITRIL/VALSARTAN 24/26 MG TABLET 0.5 EACH PO ×2 (07:51→21:20)
[2025-04-29] MEDS: Lactobacillis Acidophilus 1 CAP PO ×2 (07:52→21:19)
[2025-04-29 08:13] VITALS: PULSE 60
[2025-04-29] MEDS: Metoprolol(XL)Succ 50 MG Tablet PO (08:13)
--- NOTE | 2025-04-29 10:06 | NURSING ---
All pt care being provided in room due to Covid isolation precautions.
--- NOTE | 2025-04-29 12:27 | CASEMGMT ---
Social Work SRIRAM received an email from dtr, , requesting a call from this worker to discuss DC plans, along with a list of DME. In the email, the dtr stated the family has spoken to [facility] and they suggested the list of DME. SW phoned dtr and inquired about [facility] involvement - palliative or hospice, the list of DME and what insurance will cover, and the DC plan. Dtr stated the family declined using [facility]' services, as palliative care only comes once a month and we need more than that. Reviewed the DME list and concluded this worker will coordinate through [employer] a BSC, hospital bed and FWW. SW also emailed list of medical alert resources. Dtr stated pt will return to his home and the dtr's will take turns staying with him. was explicit about not having pt in a SNF, but if home is not successful, the only option would be [facility]. Dtr stated she spoke with [facility] insurance and they stated pt is eligible for 4-5 hours a week, 3-4 times a week of home health care. SW asked clarifying questions to what 'home health care' insurance was reporting to. was not certain. SW educated that skilled HHC is an insurance covered service, which is therapy, nurse, SRIRAM, but not the personal care aides dtr was alluding to. SW explained the insurance rep is reading the plan coverage, not applying the information. SW educated this worker will make the referral to a skilled HHC agency, as a Drs order and clinical information is needed. Dtr expressed understanding but that changes the plan. Dtr stated she will plan to contact the [facility] for any assistance as well. SW offered list of skilled HHC agencies within geographical area, INN with insurance, that include quality and resource data via CarePort guide. Dtr declined stating insurance provided her with 3 agencies. SW requested for dtr to share the names of the agencies to ensure it was skilled. Dtr stated [facility] (uncertain), [facility], [facility]. SRIRAM stated [facility] and [facility] are skilled agencies. Dtr requested referral to [facility]. SW agreed and will complete. SW inquired who [employer] should contact for DME delivery and dtr stated either dtr - SW will list as she initiated the DC plans. SRIRAM educated HHC agency will contact the pt for SOC date date, but typically 2-3 days after DC, pending PCP signing orders. Dtr stated the children are continuing to work at the pt's house today to clean out the spare bedroom and will grain picker the pt tomorrow afternoon. Dtr appreciative. - SRIRAM phoned referral to [facility] PT/OT/SN/GAMBOA/SW SRIRAM sent referral to [facility] via [employer]Port for FWW, BSC, hospital bed. Plan: DC home 04/30, [facility] PT/OT/SN/GAMBOA/SW, FWW, BSC, hospital bed. Jayleen BUSTOS SOCK MENDER
--- NOTE | 2025-04-29 16:42 | NURSING ---
[facility] worker dropped off FWW and bsc to unit for pt, states he will notify family.
--- NOTE | 2025-04-29 17:02 | CASEMGMT ---
Social Work SW received notification from [facility] that dtr, Gema, called in very upset and requested to speak with this worker. [facility] Liaison also notified this worker that when he spoke with Gema she too was expressing extreme frustration with [facility]. [employer] is unable to deliver hospital bed until 05/02, but the BSC and FWW were delivered to the pt's room. - SW phoned Gema to inquire. Gema stated that pt lost his appeal because TCU is stating the pt walked 50ft. SW inquired further with the issue. Gema stated, well he's been locked up for 8 days so I don't know how he's been able to walk 50 ft. SW offered to review PT notes - explained on 04/28 it was documented that pt was walking 90 ft, but noted the decline from 120 ft; 04/29 documented pt walked 90 ft again. SW explained pt is walking around in his room and that is totaling the 90 ft. Gema replied sarcastically, well I am excited to see him do that. Thank you, and terminated the phone call. Jayleen Briscoe ANIMAL ASSISTANT ASSISTANT EDUCATION DIRECTOR
--- NOTE | 2025-04-29 17:37 | CASEMGMT ---
Social Work SW completed BIMS () and PHQ-9 (03/16) for MDS assessment in room d/t COVID isolation. Jayleen Briscoe IMPREGNATING HELPER OUTREACH ANALYST
[2025-04-29 21:37] VITALS: PULSE 60; RESP 16; O2SAT 97
--- NOTE | 2025-04-29 22:08 | NURSING ---
Patient's IV in left hand removed. Patient tolerated well.
[2025-04-30 06:39] VITALS: PULSE 68; RESP 16; O2SAT 95
[2025-04-30] MEDS: Lactobacillis Acidophilus 1 CAP PO (09:19)
[2025-04-30] MEDS: SACUBITRIL/VALSARTAN 24/26 MG TABLET 0.5 EACH PO (09:22)
[2025-04-30 09:29] VITALS: BP 126/63; PULSE 59
[2025-04-30] MEDS: Metoprolol(XL)Succ 50 MG Tablet PO (09:29)
[2025-04-30 09:45] VITALS: BP 126/63; PULSE 59; RESP 18; TEMP 36.1; O2SAT 96
--- NOTE | 2025-04-30 11:21 | NURSING ---
ALL CARE GIVEN IN ROOM DUE TO PT IN PRECAUTIONS FOR COVID.
--- NOTE | 2025-04-30 16:23 | NURSING ---
HOME MEDS/BELONGINGS AND D/C INSTRUCTIONS GAVE TO ,DAUGHTER AND ,DAUGHTER. PT TRANSPORTED BY WHEELCHAIR BY AID TO CAR. AT 1610. NO PROBLEMS OR CONCERNS. RN AWARE
== END 2025-04-30 16:10 | disposition home health service (06) | DRG 291 ==
PROVIDERS: Internal Medicine; Admitting Provider Family Medicine Geriatric Medicine; PCP Family Medicine; Referring Provider Family Medicine Geriatric Medicine; Visit Provider Family Medicine Geriatric Medicine
DX: I13.0 Hypertensive heart and chronic kidney disease with heart failure and stage 1 through stage 4 chronic kidney disease, or unspecified chronic kidney disease (principal); U07.1 COVID-19; J12.82 Pneumonia due to coronavirus disease 2019; I50.23 Acute on chronic systolic (congestive) heart failure; L03.115 Cellulitis of right lower limb; L03.116 Cellulitis of left lower limb; N18.4 Chronic kidney disease, stage 4 (severe); E11.22 Type 2 diabetes mellitus with diabetic chronic kidney disease; D50.9 Iron deficiency anemia, unspecified; E03.9 Hypothyroidism, unspecified; F32.9 Major depressive disorder, single episode, unspecified; E11.42 Type 2 diabetes mellitus with diabetic polyneuropathy; E53.8 Deficiency of other specified B group vitamins; E11.65 Type 2 diabetes mellitus with hyperglycemia; K21.9 Gastro-esophageal reflux disease without esophagitis; E78.5 Hyperlipidemia, unspecified; Z79.4 Long term (current) use of insulin; W19.XXXD Unspecified fall, subsequent encounter; Z86.711 Personal history of pulmonary embolism; Z79.899 Other long term (current) drug therapy; N40.0 Benign prostatic hyperplasia without lower urinary tract symptoms; Z79.890 Hormone replacement therapy; Z79.84 Long term (current) use of oral hypoglycemic drugs; Z95.0 Presence of cardiac pacemaker; T79.6XXD Traumatic ischemia of muscle, subsequent encounter
CPT/HCPCS: 36415; 71046; 74018; 80048; 80053; 82533; 82962; 85025; 85027; 87633; 87811; 97110; 97116; 97162; 97166; 97530; 97535; 97802; A4216; J0248; J0834; J1610

== ENCOUNTER → 2025-04-12 | Outpatient (CLI) | payer MEDICARE, SELFPAY ==
--- NOTE | 2025-04-12 08:35 | VDLE_ITS ---
Reason For Study Reason For Study: Bilateral leg swelling RIGHT LEFT GSV is normal. GSV is normal. CFV is compressible, spontaneous, competent and CFV is compressible, spontaneous, competent, and demonstrates pulsatile venous flow. demonstrates pulsatile venous flow. FV is compressible, spontaneous, competent and FV is compressible, spontaneous, competent and demonstrates pulsatile venous flow. demonstrates pulsatile venous flow. POP V is compressible, spontaneous, competent and POP V is compressible, spontaneous, competent and demonstrates pulsatile venous flow. demonstrates pulsatile venous flow. T/P Trunk is compressible. T/P Trunk is compressible. PTV is compressible. PTV is compressible. RT PerV is compressible. LT PerV is compressible. Procedure This is a venous duplex using B-mode, color flow and spectral Doppler. Exam performed portable in patient room. The study was technically difficult. A preliminary report was called and/or faxed to TCU RN. VL/Venous Duplex US - Eleno Extrem Interpretation Summary Deep veins of the lower extremities are bilaterally patent and compressible seg mentally. There is no evidence of deep vein thrombosis on either side. Valvular competence appears intact within the p roximal deep venous systems bilaterally. The great saphenous veins appear bilaterally patent and compressible segmentall y. Pulsatile flow is noted in the deep venous system bilaterally, which may be indicative of elevated central venous p ressure (i.e. congestive heart failure, pulmonary hypertension, etc.). Clinical correlation is advised. Ordering Physician: Lv Moreno Chi Referring Physician: Joseph Durand Performed By: Catrachito Pedraza RVT
--- NOTE | 2025-04-12 08:36 | VDUE_ITS ---
Reason For Study Reason For Study: Left arm swelling Left Proximal Left jugular vein is spontaneous, widely patent, phasic, with no intraluminal echogenicity noted. Left subclavian vein is spontaneous, widely patent, phasic, with no intraluminal echogenicity noted. Left Arm Left axillary vein is spontaneous, patent, phasic, competent, compressible and demonstrates augmentation. Left brachial vein is compressible. Left cephalic vein is compressible. Left basilic vein is compressible. Left Lower Arm Left radial vein is compressible. Left ulnar vein is compressible. Procedure This was a unilateral left upper extremity venous doppler examination. Exam performed portable in patient room. A preliminary report was called and/or faxed to TCU RN. VL/Venous Duplex US, Unilateral Interpretation Summary Deep veins of the left upper extremity are patent and compressible segmentally. There is no evidence of deep vein thrombosis. The superficial veins of the left upper extremity, the basilic and cephalic veins, are patent and compressible. There is no evidence of left upper extremity superficial thrombop hlebitis involving the veins imaged. Ordering Physician: Lv Moreno Chi Referring Physician: Joseph Durand Performed By: Catrachito Pedraza RVT ???
== END | disposition home or self-care (01) ==
LOC: CVS 08:35
PROVIDERS: PCP Family Medicine; Referring Provider Family Medicine Geriatric Medicine; Visit Provider Family Medicine Geriatric Medicine
DX: M79.89 Other specified soft tissue disorders (principal)
CPT/HCPCS: 93970; 93971

== ENCOUNTER 2025-04-13 03:53 | Emergency (ER) | payer MEDICARE, SELFPAY ==
[2025-04-13 03:54] VITALS: BP 105/78; PULSE 67; RESP 16; TEMP 36.4; O2SAT 97; BMI 30.3
--- NOTE | 2025-04-13 03:58 | EDS_ITS ---
HPI HPI - Fall History of Present Illness Chief Complaint: Fall PFSH PFSH Medical History Hypothyroidism Chronic pain of toe of left foot Displaced fracture of proximal phalanx of left lesser toe(s), initial encounter for closed fracture Diabetes MIAU (minor aphthous ulceration) Hiatal hernia CKD (chronic kidney disease), stage IV Pulmonary embolism HFrEF (heart failure with reduced ejection fraction) Blood transfusion during current hospitalisation Anticoagulant-induced bleeding GI bleed Benign positional vertigo Home Medications ?Medication ?Instructions ?Recorded ?Last Taken ?Type levothyroxine 75 mcg tablet 75 mcg PO DAILY thyroid Unknown History mecobalamin (vitamin B12) 1,000 1,000 mcg PO DAILY ane erica 06/28/21 Unknown History mcg chewable tablet (B12 Active) metoprolol succinate 100 mg 100 mg PO DAILY heart 04/10 Unknown History tablet,extended release 24 hr [id number] acid-vit 1 tab PO DAILY not on pcp med list 06/28/21 Unknown History K-lycop 400 mcg-20 mcg-370 mcg tablet (Men's 50 Plus Multivitamin) tamsulosin 0.4 mg capsule 0.4 mg PO DAILY . 06/28/21 U nknown History pantoprazole 40 mg tablet,delayed 40 mg PO BID #120 ta bs 09/21/21 Unknown Rx release gabapentin 400 mg capsule 400 mg PO TID per md office list 11/27/23 Unknown History glimepiride 1 mg tablet 1 mg PO DAILY . 11/27/23 Unk nown History rosuvastatin 20 mg tablet 20 mg PO DAILY per pcp 11/26 Unknown History acetaminophen 325 mg tablet 650 mg (2 x 325 mg) PO Q6H PRN PRN 12/02/23 Unknown Rx Pain 1-10 Or Fever >100.7 #0 tabs ferrous sulfate 325 mg (65 mg 325 mg PO QODAY #30 tabs 04/07/25 Unknown Rx iron) tablet furosemide 40 mg tablet 40 mg PO BIDLX #0 tabs 04/07 Unknown Rx insulin lispro 100 unit/mL See Protocol subcut TIDAC # 0 mL 04/07/25 Unknown Rx subcutaneous pen (Humalog KwikPen (U-100) Insulin) sacubitril 24 mg-valsartan 26 mg 0.5 tab PO BID #0 tab s 04/07/25 Unknown Rx tablet sertraline 50 mg tablet 50 mg PO DAILY #0 tabs 04/07 Unknown Rx spironolactone 25 mg tablet 12.5 mg (1/2 x 25 mg) PO D AILY #0 04/07/25 Unknown Rx tabs Allergy/AdvReac Type Severity Reaction Status Date / Time No Known Allergies Allergy Verified 04/13/25 03:54 Family History Other Cancer Hypertension Surgical History History of permanent cardiac pacemaker placement Social History (Updated 04/07/25 @ 20:[address] Lv Moreno MD) household members: none and other details: Ex lives next door, she has back door entrance into his house. Smoking Status: Never smoker alcohol intake: never substance use type: does not use EXAM Physical Exam Const Vital Signs: 04/13/25 03:54 Temperature 97.6 F L Temperature Source Oral Pulse Rate 67 Respiratory Rate 16 Blood Pressure 105/78 Blood Pressure Mean 87 Pulse Ox 97 MDM [facility] MDM Narrative Medical decision making narrative: HISTORY OF PRESENT ILLNESS: Chief complaint: Fall, head trauma 84-year-old male history of type 2 diabetes, diabetic polyneuropathy, BPH, thyroidism, hypertension, heart failure, GI bleed presents with unwitnessed fall. There is a contusion noted to the right cheek and a skin tear noted to right hand. Per the transitional care unit patient also had hypoglycemia with a glucose in the 60s. REVIEW OF SYSTEMS: Pertinent positives: Fall, head trauma, hypoglycemia, shoulder pain Pertinent negatives: Chest pain, abdominal pain hip pain PHYSICAL EXAM: Nursing triage notes reviewed, Vital signs reviewed Constitutional: please see mdm Primary Survey Airway: Intact Breathing: Bilateral breath sounds Circulation: Palpable bilateral femorals, Palpable bilateral radial, Palpable bilateral DP and Palpable bilateral PT Disability / Spine precautions GCS Score: Eye Openin Verbal Response: 5 Motor Response: 6 Secondary Survey Constitutional: Please see MDM Head: Atraumatic, Midface stable, NO jaw malocclusion, No Cephalohematoma, and No Lacerations noted Eye: Pupils equal round and reactive to light, Extraocular muscles intact and No periorbital ecchymosis or stepoff, no evidence of entrapment ENT: Oropharynx clear, no lacerations, no hemotympanum, no raccoon eyes or stafford sign Cervical spine / Neck: No cervical spine bony tenderness, crepitance, or stepoff deformity Trachea midline Lungs: Clear to auscultation, No asymmetric rise and No crepitus, no flail chest Cardiac: Regular rate and rhythm and No murmurs Abdomen: Soft, Nontender and No rebound Pelvis: Pelvis stable to compression : No evidence of genital injury Back: No midline bony tenderness to thoracic/lumbar/sacral spines Neuro: At baseline, intact strength and sensation in bilateral upper and lower extremities. 2+ patellar reflexes bilaterally. Extremities: NO gross Deformities. TTP of right shoulder. Otherwise no obvious abnormalities to the left upper extremity or bilateral lower extremities. Psych: Normal affect Skin: Small skin tear noted to the dorsum of the right hand near the first metacarpal phalangeal junction. No obvious laceration noted. No obvious bleeding or foreign bodies noted Nursing triage notes reviewed, Vital signs reviewed MEDICAL DECISION MAKING: Chief Complaint: please see HPI External records reviewed: Reviewed recent admission. Patient was just admitted to a [facility] secondary to need for rehabilitation after a fall being found to have mild rhabdomyolysis. Factors affecting care: as per HPI Social determinants of health: none History obtained from others: none Consults: none [facility] Narrative: Patient was initially hemodynamically stable, afebrile and nontoxic-appearing. Primary secondary surveys concerning for the following differential I considered the following differential diagnosis: ICH, cervical spine injury, facial bone injury, right shoulder injury I obtained CT scans of the head, face and cervical spine as well as x-ray of the right shoulder to further determine if the patient was suffering from a life- threatening etiology. Gave Tylenol for initial pain control ALL IMAGES (IF OBTAINED) HAVE BEEN PERSONALLY REVIEWED AND INTERPRETED BY MYSELF. X-ray of the right shoulder was read to me personally myself showed no evidence of obvious bony abnormality. Radiology agreed my to interpretation CT scan of the head, cervical spine and face were negative for acute traumatic injury The patient and/or family, caregivers express understanding. The patient and/or family, caregivers agrees with the plan. Shared decision making: I will have a discussion with the patient and or visitors regarding risk/benefits of further testing or admission. They will be made aware of of the risk/benefits inherent in this decision they will be given the opportunity to voice understanding. Total critical care time today provided was at least 0 minutes. This excludes separately billable procedures. Critical care time (if documented) is secondary to the patient having high probability of clinically significant/life threatening deterioration in the patient's condition which required my urgent intervention. Impression: 1. Fall 2. Acute face contusion 3. Acute right shoulder contusion Dispo: Discharge home This note was generated with [employer] dictation software. It may contain incorrect words, spelling, and punctuation that were not noted in review of the chart prior to signing. Lab Data Labs: Laboratory Results - last 24 hr 04/13/25 04/13/25 04:00 05:24 POC Glucose 70 L 117 H Radiography Diagnostic Testing: Clinical Impression(s) from Imaging Studies Brain CT 04/13/25 04:18 IMPRESSION: No CT evidence for acute brain abnormality. [facility] Cervical Spine CT 04/13/25 04:18 IMPRESSION: No CT evidence of an acute abnormality. Reading [facility] Facial/Sinus 04/13/25 04:18 IMPRESSION: Right preseptal/anterior facial soft tissue hematoma extending to the right cheek. No associated acute fracture. Reading [facility] Shoulder X-Ray 04/13/25 04:40 IMPRESSION: No radiographic evidence for acute abnormality. Reading [facility] Discharge Plan Triage Chief Complaint: Fall ED Provider: Kian Simons Dx/Rx/DC Orders Instructions: ED Skin Tear (Skin Avulsion) Prescriptions: No Action pantoprazole 40 mg tablet,delayed release (DR/EC) 40 mg PO BID Qty: 120 3RF metoprolol succinate 100 mg Tablet Extended Release 24 Hr 100 mg PO DAILY levothyroxine 75 mcg Tablet 75 mcg PO DAILY tamsulosin 0.4 mg Capsule 0.4 mg PO DAILY Men's 50 Plus Multivitamin 400-20-370 mcg Tablet 1 tab PO DAILY mecobalamin (vitamin B12) [B12 Active] 1,000 mcg Tablet,Chewable 1,000 mcg PO DAILY gabapentin 400 mg capsule 400 mg PO TID glimepiride 1 mg tablet 1 mg PO DAILY rosuvastatin 20 mg tablet 20 mg PO DAILY Rx Instructions: source is per pcp med list acetaminophen 325 mg Tablet 650 mg PO Q6H PRN PRN (Reason: Pain 1-10 Or Fever >100.7) Qty: 0 0RF spironolactone 25 mg Tablet 12.5 mg PO DAILY Qty: 0 0RF Rx Instructions: Hold for serum potassium more than 5.0 sertraline 50 mg Tablet 50 mg PO DAILY Qty: 0 0RF sacubitril-valsartan 24-26 mg Tablet 0.5 tab PO BID Qty: 0 0RF Rx Instructions: Hold for SBP less than 110 mmHg furosemide 40 mg Tablet 40 mg PO BIDLX Qty: 0 0RF insulin lispro [Humalog KwikPen Insulin] 100 unit/mL Insulin Pen See Protocol subcut TIDAC Qty: 0 0RF Protocol: 3. Sliding Scale Insulin Med Dosing Condition: 150-189 mg/dl = 1 unit Condition: 190-229 mg/dl = 2 units Condition: 230-269 mg/dl = 3 units Condition: 270-309 mg/dl = 4 units Condition: 310-349 mg/dl = 5 units Condition: 350-399 mg/dl = 6 units Condition: 400-449 mg/dl = 7 units Condition: Greater than 449 call physician Protocol Text: - Use for Total Daily Dose of Insulin 37-55 units - Obsese, infected, or steroid patients MEDIUM DOSING ALGORITHIM ferrous sulfate 325 mg (65 mg iron) tablet 325 mg PO QODAY Qty: 30 0RF Primary Care Provider: Joseph Durand Referrals: Joseph Durand MD [Primary Care Provider, Family Practice] Activity Restrictions/Additional Instructions: Thank you for trusting us with your care today! Imaging of your brain, cervical spine and face were negative for acute traumatic injuries. X-ray of your right shoulder was negative as well. To TCU: Patient would need frequent blood sugar monitoring given initial complaint of hypoglycemia. Please take Tylenol (2 pills, 650 mg), ibuprofen (2 pills, 400 mg) every 6 hours as needed for pain and fever control. Please return to the emergency department if your symptoms change or worsen. Please follow with your primary care physician for further outpatient evaluation and management. Print Language: Argentine Disposition Disposition: Home, Self Care
--- OUTSIDE RECORDS SUMMARY | 2025-04-13 04:08 | XMS RPT_ITS | CCD ---
Author Organization [facility] CliniSyny Care Team Providers Care Inspector And Sorter Name Role Phone Rigoberto Durand Primary Care Provider [phone] Rigoberto Durand Primary Care Provider Dr. Rigoberto Durand Referring Provider Dr. Saud Merida Attending Provider [phone] Enrico Davenport Emergency Provider Dr. Mauro Gusman Admit Provider Dr. Mauro Gusman Attending Provider Dr. Mauro Gusman Other Provider Dr. Carlos Barrientos Other Provider Dr. Mauro Gusman Referring Provider Dr. Carlos Barrientos Attending Provider Dr. Saud Merida Other Provider Dr. Les Chance Other Provider Dr. Les Chance Attending Provider Dr. Saud Merida Referring Provider Dr. Rigoberto Durand Primary Care Provider Dr. Rigoberto Durand Referring Provider Dr. Saud Merida Attending Provider Rigoberto Durand MD Primary Care Provider Dr. Rigoberto Durand Primary Care Provider Dr. Rigoberto Durand Referring Provider Dr. Saud Merida Attending Provider Dr. Raphael Quispe Attending Provider Brenda, Gibson Primary Care Provider Ladarius BRYANT, Rigoberto Klein Primary Care Provider BrendaKvngon Primary Care Provider [phone] Ladarius BRYANT, Dr. Ruiz Primary Care Provider [phone] Dr. Rigoberto Durand MD Attending Provider Dr. Harvinder George DO Emergency Provider Chad ETIENNE, Jany Unavailable Unavailable Pawel BRYANT, Brinda Klein Primary Care Provider Chad ETIENNE, Jany Unavailable Unavailable BRENDA, GIBSON Primary Care Unavailable LISA MUNIZ Attending Unavailable LISA MUNIZ Admitting Unavailable BRENDA, GIBSON Primary Care Unavailable ELIAN, MOISES Admitting Unavailable DEE JONES Attending Unavailable PETRA RENTERIA Attending Unavailable BRINDA BOURNE Primary Care Unavailable RALPH ROTH Attending Unavailable BRENDA, GIBSON Primary Care Unavailable BRENDARALPH Attending Unavailable BRENDA, GIBSON Primary Care Unavailable BRENDA, GIBSON Primary Care Unavailable BRENDA, GIBSON Primary Care Unavailable BRENDA, GIBSON Primary Care Unavailable Ladarius BRYANT, Dr. Ruiz Primary Care Provider [phone] Dr. Harvinder George DO Attending Provider Dr. Dax Romero DO Emergency Provider Dr. Dax Roemro DO Attending Provider Dr. Rigoberto Durand MD Attending Provider Dr. Shaun Taveras DO Emergency Provider Ladarius BRYANT, Dr. Ruiz Admit Provider Rigoberto Durand Primary Care Unavailable Josh, Lv Chi Attending Unavailable Josh, Lv Chi Referring Unavailable Rigoberto Durand Attending Unavailable Ladarius, Rigoberto Primary Care Unavailable Ladarius, Rigoberto Attending Unavailable Ladarius, Rigoberto Primary Care Unavailable Ladarius, Rigoberto Primary Care Unavailable Harvinder George Attending Unavailable Ladarius, Rigoberto Consulting Unavailable Jaden Cedillo Attending Unavailable Ladarius, Rigoberto Admitting Unavailable Rigoberto Durand Primary Care Unavailable Bushra Woodall Consulting Unavailable Rigoberto Durand Primary Care Unavailable Josh, Lv Chi Admitting Unavailable Josh, Lv Chi Attending Unavailable Josh, Lv Chi Referring Unavailable Rigoberto Durand Primary Care Unavailable Dax Romero Attending Unavailable Rigoberto Durand Primary Care Unavailable Esther Hutchins Attending Unavailable Rigoberto Durand Consulting Unavailable Jaden Cedillo Attending Unavailable Rigoberto Durand Admitting Unavailable Rigoberto Durand Primary Care Unavailable Bushra Woodall Consulting Unavailable Jaden Cedillo Consulting Unavailable Rigoberto Durand Attending Unavailable Ladarius, Rigoberto Primary Care Unavailable Allergies Allergy Classification Reported Allergen(s) Allergy Type Date of Onset Reaction(s) Facility (9 sources) Seasonal allergy Propensity to adverse reactions to substance 10-24-2015 [place], [place] (20 sources) Other Propensity to adverse reactions 10-24-2015 [facility] (20 sources) atorvastatin Drug Allergy 09-12-2015 [facility] (20 sources) latanoprost Drug Allergy 05-29-2015 [facility] (20 sources) Lovastatin Propensity to adverse reactions 11-25-2012 [facility] Medications Current Medications Medication Drug Class(es) Dates Sig (Normalized) Sig (Original) albuterol 0.83 mg/ml inhalant solution (2 sources) beta2-Adrenergic Agonist Start: 09-22-2020 albuterol (PROVENTIL) nebulizer solution 1.25 mg Start: 08-15-2020 albuterol (PRO VENTIL) (2.5 MG/3ML) 0.083% nebulizer solution INHALE 1 VIAL VIA NEBULIZER 3-4 TIMES DIALY 0 08/15/2020 Active aluminum hydroxide 40 mg/ml / magnesium hydroxide 40 mg/ml / simethicone 4 mg/ml oral suspension (1 source) Start: 09-23-2020 aluminum & mag nesium hydroxide-simethicone (MAALOX) 200-200-20 MG/5ML suspension 30 mL ascorbic acid 60 mg / beta carotene 5000 unt / copper sulfate 40 mg / dl-alpha tocopheryl acetate 30 unt / sodium selenite 0.04 mg / zinc oxide 40 mg oral tablet (2 sources) Vitamin C Start: 09-21-2020 therapeutic multivitamin-minerals 1 tablet Start: 09-11-2020 take 1 tablet [...] Active Start: 09-26-2020 take 1 capsule by [facility] once daily Coenzyme Q10 (COQ-10) 30 MG CAPS Take 1 capsule by mouth daily 30 capsule 0 09/26/2020 Active colestipol hydrochloride 1000 mg oral tablet (12 sources) Bile Acid Sequestrant Start: 11-19-2021 Colestip ol 1 gram tablet Active 0.5 g PO .every other day November 19, 2021 12:00am Start: 11-19-2021 take 0.5 g by mouth every other day Colestipol Active 0.5 GM PO .every other day November 19, 2021 12:00am doxycycline hyclate 100 mg oral tablet (5 sources) Tetracycline-class Drug Start: 04-05-2025 take 1 tablet by mouth twice daily Doxycycline Hyclate 100 mg tablet Active 100 mg PO TWICE A DAY April 05, 2025 12:00am Start: 12-02-2023 take [address] [facility] twice daily Doxycycline Monohydrate 100 mg Capsule Active 100 mg PO TWICE A DAY 10 5 December 02, 2023 12:00am ferrous sulfate 325 mg oral tablet (20 sources) Start: 07-01-2021 End: 02-15-2025 take 1 tablet by mouth once daily Ferrous Sulfate 325 mg (65 mg iron) tablet Active 325 mg PO DAILY 30 July 01, 2021 1:00am Start: 06-28-2020 ferrous sulfat e (IRON 325) tablet 325 mg glimepiride 1 mg oral tablet (20 sources) Sulfonylurea Start: 11-27-2023 take 1 tablet by mouth once daily Glimepiride 1 mg tablet Active 1 mg PO DAILY November 27, 2023 12:00am per pcp med list source is per pt PCP med list 3 ml insulin lispro 100 unt/ml pen injector (4 sources) Insulin Analog Start: 12-02-2023 Insulin Lispro (Humalog Kwikpen Insulin) 100 unit/mL Insulin Pen Active 0 U SC THREE TIMES DAILY BEFORE MEALS 0 0 December 02, 2023 12:00am Please contact the information source for Protocol details. iopamidol (ISOVUE-370) 76 % injection 75 mL (1 source) Start: 09-05-2020 iopamidol (ISOVUE-370) 76 % injection 75 mL mecobalamin 1 mg chewable tablet (13 sources) Start: 06-28-2021 Mecobalamin (Vitamin B12) (B12 Active) 1,000 mcg Tablet,Chewable Active 1000 ug PO DAILY June 28, 2021 1:00am anemia miconazole nitrate 20 mg/ml topical cream (4 sources) Azole Antifungal Start: 12-02-2023 Miconazole Ni trate 2 % Cream Active 1 NMA TOPICAL [...] PO) Take by mouth daily 0 Active Okxhexxv-Abd-Sykef-Vit K-Lycop (Men's 50 Plus Multivitamin) 400-20-370 mcg Tablet (13 sources) Start: 06-28-2021 take 50-400 tablets by mouth once daily Qguhycvy-Xur-Pprrf-Vit K-Lycop (Men's 50 Plus Multivitamin) 400-20-370 mcg Tablet Active 1 TABLET PO DAILY June 28, 2021 2:13pm Start: 06-28-2021 take 50-400 tablets by mouth once daily Llvwwejx-Rkz-Xtgvl-Vit K-Lycop (Men's 50 Plus Multivitamin) 400-20-370 mcg Tablet Active 1 {tbl} PO DAILY June 28, 2021 1:00am not on pcp med list Start: 06-28-2021 take 50-400 tablets by mouth once daily Dxhjcxkh-Kmf-Rbdps-Vit K-Lycop (Men's 50 Plus Multivitamin) 400-20-370 mcg Tablet Active 1 {tbl} PO DAILY June 28, 2021 1:00am Start: 06-28-2021 take 50-400 tablets by mouth once daily Engjgjqq-Prk-Gygea-Vit K-Lycop (Men's 50 Plus Multivitamin) 400-20-370 mcg Tablet Active 1 TABLET PO DAILY June 28, 2021 12:00am Start: 06-28-2021 take 50-400 tablets by mouth once daily Szsalcqt-Bvt-Fddzn-Vit K-Lycop (Men's 50 Plus Multivitamin) 400-20-370 mcg Tablet Active 1 TABLET PO DAILY June 28, 2021 1:00am oxyCODONE hydrochloride 5 mg oral tablet (4 sources) Opioid Agonist Start: 12-02-2023 take 2.5-5 [...] Oral, 2 times daily, First dose on [place] 02/10/25 at 0900, Contraindicated in combination with ROLO inhibitors. Ensure a minimum of 36 hours between any ROLO inhibitor dose and sacubitril-valsartan. Start: 11-27-2023 Sacubitril-Erika sartan (Entresto) 24-26 mg tablet Active 1 {tbl} PO TWICE A DAY November 27, 2023 12:00am per pcp med list On Hold: Hold for at least 1 week. GABI on CKD. source is from pcp office Start: 11-27-2023 End: 02-01-2025 1 tablet, Oral, [...] reduced ejection fraction) (HCC) Take 1 tablet by mouth in the [...] 02, 2023 1:30pm not on pcp list sucralfate 1000 mg oral tablet (20 sources) Aluminum Complex Start: 11-27-2023 End: 02-15-2025 take 1 tablet by mouth twice daily Sucralfate (Carafate) 1 gram tablet Active 1 g PO TWICE A DAY November 27, 2023 12:00am per MD office list per md office list: #60 starting 11/04/23 with no refills. (source is not daughter in law however, it wont let me change the source) Start: 09-21-2021 take 1 mL by mouth twice daily Sucralfate 100 mg/mL suspension Active 10 mL PO TWICE A DAY 1000 0 September 21, 2021 1:00am md office Start: 07-01-2021 End: 11-27-2023 take 1 tablet by mouth four times daily Sucralfate (Carafate) 1 gram tablet Discontinued 1 g PO .QID 30 0 July 01, 2021 1:00am November 27, 2023 11:03am tamsulosin hydrochloride 0.4 mg oral capsule (20 sources) alpha-Adrenergic Jody Start: 09-11-2020 End: 02-15-2025 take 1 capsule by mouth once daily Tamsulosin 0.4 mg Capsule Active 0.4 mg PO DAILY June 28, 2021 1:00am per md office list source is MD office not daughter in law End: 02-01-2025 take 1 capsule by mouth [...] Start: 09-27-2020 take 1 tablet by jm th once daily torsemide (DEMADEX) 100 MG tablet [...] Class(es) Dates Sig (Normalized) Sig (Original) Acetaminophen (8 sources) Start: 02-10-2025 End: 02-15-2025 take 1 [...] Start: 09-12-2020 acetaminophen (TYLENOL) tablet 650 mg acetaminophen 325 mg / HYDROcodone bitartrate 5 mg oral tablet (3 sources) Opioid Agonist Start: 12-12-2024 End: 04-05-2025 Hydrocodone-Acetaminophen 5-325 mg tablet Discontinued 1 {tbl} PO EVERY 6 HOURS NEEDED as needed for Pain 8 2 0 December 12, 2024 April 05, 2025 12:01am Diverticulitis amLODIPine 10 mg / benazepril hydrochloride 40 mg oral capsule (2 sources) Dihydropyridine Calcium Channel Jody, Angiotensin Converting Enzyme Inhibitor Start: 03-23-2008 amlodipine besylate/benazepril(LOTREL 10 MG-40 MG CAP) Take one(1) tablet daily. 0 03/23/2008 Active Comment on above: Take one(1) tablet d aily. amoxicillin 875 mg / clavulanate 125 mg oral tablet (9 sources) Penicillin-class Antibacterial Start: 12-12-2024 End: 04-05-2025 Amoxicillin-Pot Clavulanate 875-125 mg tablet Discontinued 1 {tbl} PO TWICE A DAY 19 10 0 December 12, 2024 12:00am April 05, 2025 12:00am Start: 12-02-2023 End: 04-05-2025 Amoxicillin-Pot Clavulanate 500-125 mg Tablet Discontinued 1 {tbl} PO TWICE DAILY WITH MEALS 10 5 0 December 02, 2023 12:00am April 05, 2025 12:00am apixaban 2.5 mg oral tablet (20 sources) [...] mL/hr, Administer over 2 Hours, Once, On Fri01/29/25 at 1430, For 1 dose, premix bag [...] Topical, 2 times daily, First dose on 01/29/25 at 1430, To inguinal folds in the [...] sodium chloride 0.9 % 250 mL IVPB 2 ml furosemide 10 mg/ml injection (17 [...] 0900 Start: 11-27-2023 take [address] [facility] three times daily Gabapentin 400 mg capsule Active 400 mg PO THREE TIMES A DAY November 27, 2023 12:00am per md office list Start: 06-28-2021 End: 12-02-2023 take 1 tablet by mouth twice daily Gabapentin 600 mg Tablet Discontinued 600 mg PO TWICE A DAY 0 August 22, 2021 2:48pm December 02, [...] End: 02-01-2025 0.5 ml heparin sodium, porcine 66623 unt/ml prefilled syringe (2 sources) Unfractionated Heparin, Anti-coagulant Start: 01-29-2025 End: 02-01-2025 inject 1 dose by subcutaneous injection three times daily 5,000 Units, SubCUTAneous, Every 8 hours scheduled (3 times per day), First dose on Fri01/29/25 at 1400 Insulin Lispro (Humalog) injection 0-12 [...] mL/hr, Administer over 2 Hours, Once, On 01/30/25 at 1800, For 1 dose, Recommended infusion [...] hydrochloride 500 mg extended release oral tablet (15 sources) Biguanide Start: 08-20-2021 End: 08-22-2021 take [...] wice daily. metOLazone 5 mg oral tablet (14 sources) Thiazide-like Diuretic Start: 06-28-2021 End: 08-22-2021 Metolazone 5 mg Tablet Discontinued 5 mg PO MOWEFR June 28, 2021 1:00am August 22, 2021 2:26pm Start: 09-22-2020 End: 09-25-2020 metOLazone (ZAROXOLYN) table t 5 mg 24 hr metoprolol succinate 100 mg extended release oral tablet (20 sources) beta-Adrenergic Jody Start: 08-21-2015 take 1 tablet by mouth every twenty-four hours in the morning metoprolol succinate XL (Toprol-XL) 100 MG 24 hr tablet Take 100 mg by mouth in the morning. 08/21/2015 Active Start: 03-23-2008 End: 02-15-2025 take 100 mg by mouth once daily 100 mg, Oral, Daily, F irst dose on [facility] 02/10/25 at 0900, Do not crush or chew. Comment on above: Take one(1) tablet d aily. multivitamins(DAILY VITAMIN TAB) (2 sources) Start: 03-23-20 08 multivitamins(DAILY VITAMIN TAB) Take one(1) tablet daily. [...] End: 01-30-2025 20 mEq, Oral, Once, On Fri at 1100, For 1 dose, Best given with food and plenty of water to minimize gastric irritation. Do not crush or chew. Start: 09-26-2020 take 1 tablet by jm th three times daily at mealtime potassium chloride [...] 2021 1:00am December 02, 2023 2:03pm mdoffice tadalafil 20 mg oral tablet (18 sources) Phosphodiesterase 5 Inhibitor Start: 03-20-2024 End: [...] mL/hr, Administer over 120 Minutes, Once, On Fri02/10/25 at 0345, For 1 dose, premix bag, [...] te Episodic/Chronic Acute and unspecified renal failure (18 sources) Ijmui-hr-gznvjng renal failure; Translations: [Acute kidney failure, unspecified] [...] 1 08-24-2020 Chronic Diabetes mellitus without complication (4 sources) Diabetes mellitus; Translations: [Type 2 diabetes mellitus without complications] Onset: 5 04-05-2025 Chronic Diseases of mouth; excluding dental (14 sources) Minor oral aphthous ulceration; Translations: [Recurrent oral aphthae] Episodic Diseases of white blood cells (5 sources) Leukocytosis; Translations: [Elevated white blood cell count, unspecified] 11-27-2023 Chronic Disorders of lipid metabolism (20 sources) Hyperlipidemia; Translations: [Hyperlipidemia, unspecified] Onset: 1 08-01-2020 Chronic Diverticulosis and diverticulitis (3 sources) Diverticulitis; Translations: [Diverticulitis of intestine, part unspecified, without perforation or abscess without bleeding] 12-12-2024 Chronic E Codes: Fall (5 sources) Fall; Translations: [Unspecified fall, initial encounter] Onset: 5 04-01-2025 Episodic Esophageal disorders (20 sources) Gastroesophageal reflux disease; Translations: [Gastro-esophageal reflux disease without esophagitis] Onset: 3 Chronic Essential hypertension (20 sources) Hypertensive disorder; Translations: [Essential hypertension] Onset: 1 08-01-2020 Chronic Fluid and electrolyte disorders (13 sources) Hypokalemia; Translations: [Hypokalemia] 07-09-2021 Episodic Fracture of lower limb (4 sources) Closed fracture proximal phalanx, toe ; Translations: [Displaced fracture of proximal phalanx of left lesser toe(s), initial encounter for closed fracture] 12-10-2023 Episodic Gastrointestinal hemorrhage (20 sources) Gastrointestinal hemorrhage; Translations: [Gastrointestinal hemorrhage, unspecified] Episodic Hypertension with complications and secondary hypertension (1 source) Hypertensive heart and chronic kidney disease with heart failure and stage 1 through stage 4 chronic kidney disease, or unspecified chronic kidney disease; Translations: [Hypertensive heart and chronic kidney disease with heart failure and stage 1 through stage 4 chronic kidney disease, or unspecified chronic kidney disease] Onset: 5 Chronic Malaise and fatigue (8 sources) Asthenia; Translations: [Weakness] Onset: 5 11-27-2023 Episodic Non-Hodgkin`s lymphoma (20 sources) Follicular non-Hodgkin's lymphoma; Translations: [Follicular lymphoma, unspecified, unspecified site] Onset: 8 10-20-2015 Chronic Open wounds of head; neck; and trunk (2 sources) Laceration of head; Translations: [Laceration without foreign body of unspecified part of head, initial encounter] 04-01-2025 Episodic Other circulatory disease (13 sources) Low blood pressure; Translations: [Hypotension, unspecified] 07-09-2021 Episodic Other circulatory disease (13 sources) Orthostatic hypotension; Translations: [Orthostatic hypotension] 08-30-2021 Episodic Other circulatory disease (1 source) Orthostatic hypotension; Translations: [Orthostatic hypotension] Episodic Other connective tissue disease (6 sources) Rhabdomyolysis; Translations: [Rhabdomyolysis] 11-27-2023 Episodic Other connective tissue disease (4 sources) Chronic pain of left foot; Translations: [Pain in left toe(s)] 12-10-2023 Episodic Other connective tissue disease (2 sources) Rhabdomyolysis; Translations: [Rhabdomyolysis] Onset: 5 Episodic Other gastrointestinal disorders (20 sources) Malabsorption - iron; Translations: [Intestinal malabsorption, unspecified] Onset: 1 08-15-2020 Chronic Other gastrointestinal disorders (13 sources) Constipation; Translations: [Constipation, unspecified] 02-18-2022 Episodic Other gastrointestinal disorders (5 sources) Constipation, unspecified; Translations: [Constipation, unspecified] Episodic Other injuries and conditions due to external causes (2 sources) Closed injury of head; Translations: [Unspecified injury of head, initial encounter] 04-01-2025 Episodic Other lower respiratory disease (1 source) Pleurodynia; Translations: [Pleurodynia] Onset: 5 Episodic Other male genital disorders (2 sources) Male erectile dysfunction, unspecified; Translations: [Impotence of organic origin] 12-22-2023 Chronic Other nutritional; endocrine; and metabolic disorders (13 sources) Hyperuricemia; Translations: [Hyperuricemia without signs of inflammatory arthritis and tophaceous disease] 07-09-2021 Episodic Other skin disorders (1 source) Localized swelling, mass and lump, left upper limb; Translations: [Localized swelling, mass and lump, left upper limb] Onset: 5 Episodic Belen-; endo-; and myocarditis; cardiomyopathy (except that caused by tuberculosis or sexually transmitted disease) (20 sources) Cardiomyopathy; Translations: [Other cardiomyopathies] Onset: 1 08-01-2020 Chronic Residual codes; unclassified (2 sources) Bilateral lower limb edema; Translations: [Localized edema] 01-28-2025 Episodic Residual codes; unclassified (3 sources) Localized edema; Translations: [Localized edema] Onset: 5 Episodic Skin and subcutaneous tissue infections (20 sources) Cellulitis of lower limb; Translations: [Cellulitis of unspecified part of limb] Onset: 5 02-10-2025 Episodic Spondylosis; intervertebral disc disorders; other back problems (11 sources) Spinal stenosis of lumbar region; Translations: [...] Test Name Value Interpretation Reference Range Facility Bedside Glucoseon 04-12-2025 FINGERSTICK GLU 72 mg/dL Low 74-106 [facility] Comment on above: Result Comment: JOHNNY GEMENT OF PATIENT CARE PER NURSING PROTOCOL Performed By: #### L [id number], L500.4050, L100.0100 #### [facility] [address] [place], [address] FINGERSTICK GLU 81 mg/dL Normal 74-106 [facility] Comment on above: Result Comment: JOHNNY GEMENT OF PATIENT CARE PER NURSING PROTOCOL Performed By: #### L 501.2450, L500.4050, L100.0100 #### [facility] [address] [place], [address] FINGERSTICK GLU 96 mg/dL Normal 74-106 [facility] Comment on above: Result Comment: JOHNNY GEMENT OF PATIENT CARE PER NURSING PROTOCOL Performed By: #### L 501.2450, L500.4050, L100.0100 #### [facility] [address] [place], [address] FINGERSTICK GLU 85 mg/dL Normal 74-106 [facility] Comment on above: Result Comment: JOHNNY GEMENT OF PATIENT CARE PER NURSING PROTOCOL Performed By: #### L 501.080 #### [facility] [address] [place], [address] FINGERSTICK GLU 58 mg/dL Low 74-106 [facility] Comment on above: Result Comment: JOHNNY GEMENT OF PATIENT CARE PER NURSING PROTOCOL Performed By: #### L 501.080 #### [facility] [address] [place], [address] Venous Duplex US - Alessio Extre [facility] 04-12-2025 Venous Duplex US - Alessio Extrem [facility] [address] [place] [address] Venous Duplex US - Alessio Extrem 04/12/25 1126 MR#: [id number] Acct: [id number] Name: MEGAN NASCIMENTO Rep #: [id number] : 1940 [id number] From: Stephon Ferguson MD Attending Dr: Dr. Lv Moreno MD Status: REG CLI Ordering Dr: Lv Moreno MD Date: 04/12/25 Location: CVS Sex: M C Admitted: Reason For Study Reason For Study: Bilateral leg swelling RIGHT LEFT GSV is normal. GSV is normal. CFV is compressible, spontaneous, competent and CFV is compressible, spontaneous, competent, and demonstrates pulsatile venous flow. demonstrates pulsatile venous flow. FV is compressible, spontaneous, competent and FV is compressible, spontaneous, competent and demonstrates pulsatile venous flow. demonstrates pulsatile venous flow. POP V is compressible, spontaneous, competent and POP V is compressible, spontaneous, competent and demonstrates pulsatile venous flow. demonstrates pulsatile venous flow. T/P Trunk is compressible. T/P Trunk is compressible. PTV is compressible. PTV is compressible. RT PerV is compressible. LT PerV is compressible. Procedure This is a venous duplex using B-mode, color flow and spectral Doppler. Exam performed portable in patient room. The study was technically difficult. A preliminary report was called and/or faxed to TCU RN. VL/Venous Duplex US - Alessio Extrem Interpretation Summary Deep veins of the lower extremities are bilaterally patent and compressible segmentally. There is no evidence of deep vein thrombosis on either side. Valvular competence appears intact within the proximal deep venous systems bilaterally. The great saphenous veins appear bilaterally patent and compressible segmentally. Pulsatile flow is noted in the deep venous system bilaterally, which may be indicative of elevated central venous pressure (i.e. congestive heart failure, pulmonary hypertension, etc.). Clinical correlation is advised. Ordering Physician: Lv Moreno Chi Referring Physician: Rigoberto Durand Performed By: Catrachito Pedraza, T 04/12/25 1455 Date Stephon Ferguson MD CC: Dr. Rigoberto Durand MD; Dr. Lv Moreno MD Date Dictated: 04/12/25 1126 Date Transcribed: 04/12/251454 Stockroom Clerk: Signed Normal [facility] Venous Duplex US, Unilateral on 04-12-2025 Venous Duplex US, Unilateral [facility] [address] [place] [address] Venous Duplex US, Unilateral 04/12/25 1111 MR#: [id number] Acct: [id number] Name: MEGAN NASCIMENTO Rep #: [id number] : 1940 84 From: Stephon Ferguson MD Attending Dr: Dr. Lv Moreno MD Status: REG CLI Ordering Dr: Lv Moreno MD Date: 04/12/25 Location: CVS Sex: M C Admitted: Reason For Study Reason For Study: Left arm swelling Left Proximal Left jugular vein is spontaneous, widely patent, phasic, with no intraluminal echogenicity noted. Left subclavian vein is spontaneous, widely patent, phasic, with no intraluminal echogenicity noted. Left Arm Left axillary vein is spontaneous, patent, phasic, competent, compressible and demonstrates augmentation. Left brachial vein is compressible. Left cephalic vein is compressible. Left basilic vein is compressible. Left Lower Arm Left radial vein is compressible. Left ulnar vein is compressible. Procedure This was a unilateral left upper extremity venous doppler examination. Exam performed portable in patient room. A preliminary report was called and/or faxed to TCU RN. VL/Venous Duplex US, Unilateral Interpretation Summary Deep veins of the left upper extremity are patent and compressible segmentally. There is no evidence of deep vein thrombosis. The superficial veins of the left upper extremity, the basilic and cephalic veins, are patent and compressible. There is no evidence of left upper extremity superficial thrombophlebitis involving the veins imaged. Ordering Physician: Lv Moreno Chi Referring Physician: Rigoberto Durand Performed By: Catrachito Pedraza, Larissa ??? 04/12/25 1451 Date Stephon Ferguson MD CC: Dr. Rigoberto Durand MD; Dr. Lv Moreno MD Date Dictated: 04/12/25 1111 Date Transcribed: 04/12/251450 Stockroom Clerk: Signed Normal [facility] Basic Metabolic Profile (BMP )on 04-11-2025 BUN/CRE 18.2 RATIO Normal 10-20 [facility] Comment on above: Performed By: #### L 501.080 #### [facility] [address] [place], [place], [address] Calcium [Mass/Vol] 8.8 mg/dL Normal 7.6-11.0 [facility] Comment on above: Performed By: #### L 501.080 #### [facility] [address] [place], [address] Chloride [Moles/Vol] 101 mmol/L Normal 98-108 [facility] Comment on above: Performed By: #### L 501.080 #### [facility] [address] [place], [address] CO2 [Moles/Vol] 23.2 mmol/L Normal 21.0-32.0 [facility] Comment on above: Performed By: #### L 501.080 #### [facility] [address] [place], [address] Creatinine [Mass/Vol] 2.18 mg/dL High 0.70-1.20 [facility] Comment on above: Performed By: #### L 501.080 #### [facility] [address] [place], [address] ECRCL 25.66 ml/min Low 50-250 [facility] Comment on above: Performed By: #### L 501.080 #### [facility] [address] [place], [address] GAP 13 Normal 5-15 [facility] Comment on above: Performed By: #### L 501.080 #### [facility] [address] [place], [address] GFR/1.73 sq M.predicted among non-blacks MDRD (S/P/Bld) [Vol rate/Area] 29 mL/min/{1.73_m2} Low >60 [facility] Comment on above: Result Comment: mL/m in/1.73m2 CKD-EPI Creatinine Equation (2020) Performed By: #### L 501.080 #### [facility] [address] [place], [address] Glucose [Mass/Vol] 68 mg/dL Low 70-99 [facility] Comment on above: Performed By: #### L 501.080 #### [facility] [address] [place], [address] Potassium [Moles/Vol] 4.1 mmol/L Normal 3.3-5.1 [facility] Comment on above: Performed By: #### L 501.080 #### [facility] [address] [place], [address] Sodium [Moles/Vol] 138 mmol/L Normal 133-145 [facility] Comment on above: Performed By: #### L 501.080 #### [facility] [address] [place], [address] Urea nitrogen [Mass/Vol] 40 mg/dL High 4-19 [facility] Comment on above: Performed By: #### L 501.080 #### [facility] [address] [place], [address] Bedside Glucoseon 04-11-2025 FINGERSTICK GLU 88 mg/dL Normal 74-106 [facility] Comment on above: Result Comment: JOHNNY GEMENT OF PATIENT CARE PER NURSING PROTOCOL Performed By: #### L 501.080 #### [facility] [address] [place], [address] FINGERSTICK GLU 43 mg/dL Invalid Interpretation Code 74-106 [facility] Comment on above: Result Comment: [facility] k Given MANAGEMENT OF PATIENT CARE PER NURSING PROTOCOL Performed By: #### L 501.2450, L500.4050, L100.0100 #### [facility] [address] [place], [address] FINGERSTICK GLU 72 mg/dL Low 74-106 [facility] Comment on above: Result Comment: JOHNNY GEMENT OF PATIENT CARE PER NURSING PROTOCOL Performed By: #### L 501.080 #### [facility] [address] [place], [address] FINGERSTICK GLU 63 mg/dL Low 74-106 [facility] Comment on above: Result Comment: JOHNNY GEMENT OF PATIENT CARE PER NURSING PROTOCOL Performed By: #### L 501.080 #### [facility] [address] [place], [address] FINGERSTICK GLU 55 mg/dL Low 74-106 [facility] Comment on above: Result Comment: JOHNNY GEMENT OF PATIENT CARE PER NURSING PROTOCOL Performed By: #### L 501.080 #### [facility] [address] [place], [address] FINGERSTICK GLU 47 mg/dL Low 74-106 [facility] Comment on above: Result Comment: JOHNNY GEMENT OF PATIENT CARE PER NURSING PROTOCOL Performed By: #### L 501.080 #### [facility] [address] [place], [address] FINGERSTICK GLU 86 mg/dL Normal 74-106 [facility] Comment on above: Result Comment: JOHNNY GEMENT OF PATIENT CARE PER NURSING PROTOCOL Performed By: #### L 501.080 #### [facility] [address] [place], [address] FINGERSTICK GLU 71 mg/dL Low 74-106 [facility] Comment on above: Result Comment: JOHNNY GEMENT OF PATIENT CARE PER NURSING PROTOCOL Performed By: #### L 501.080 #### [facility] [address] [place], [address] Bedside Glucoseon 04-10-2025 FINGERSTICK GLU 105 mg/dL Normal 74-106 [facility] Comment on above: Result Comment: JOHNNY GEMENT OF PATIENT CARE PER NURSING PROTOCOL Performed By: #### L 501.080 #### [facility] [address] [place], [address] FINGERSTICK GLU 68 mg/dL Low 74-106 [facility] Comment on above: Result Comment: JOHNNY GEMENT OF PATIENT CARE PER NURSING PROTOCOL Performed By: #### L 501.2450, L500.4050, L100.0100 #### [facility] [address] [place], [address] FINGERSTICK GLU 56 mg/dL Low 74-106 [facility] Comment on above: Result Comment: JOHNNY GEMENT OF PATIENT CARE PER NURSING PROTOCOL Performed By: #### L 501.2450, L500.4050, L100.0100 #### [facility] [address] [place], [address] FINGERSTICK GLU 81 mg/dL Normal 74-106 [facility] Comment on above: Result Comment: JOHNNY GEMENT OF PATIENT CARE PER NURSING PROTOCOL Performed By: #### L 501.080 #### [facility] [address] [place], [address] FINGERSTICK GLU 72 mg/dL Low 74-106 [facility] Comment on above: Result Comment: JOHNNY GEMENT OF PATIENT CARE PER NURSING PROTOCOL Performed By: #### L 501.080 #### [facility] [address] [place], [address] Bedside Glucoseon 04-09-2025 FINGERSTICK GLU 79 mg/dL Normal 74-106 [facility] Comment on above: Result Comment: JOHNNY GEMENT OF PATIENT CARE PER NURSING PROTOCOL Performed By: #### L 501.2450, L500.4050, L100.0100 #### [facility] [address] [place], [address] FINGERSTICK GLU 69 mg/dL Low 74-106 [facility] Comment on above: Result Comment: JOHNNY GEMENT OF PATIENT CARE PER NURSING PROTOCOL Performed By: #### L 501.080 #### [facility] [address] [place], [address] FINGERSTICK GLU 78 mg/dL Normal 74-106 [facility] Comment on above: Result Comment: JOHNNY GEMENT OF PATIENT CARE PER NURSING PROTOCOL Performed By: #### L 501.080 #### [facility] [address] [place], [address] FINGERSTICK GLU 82 mg/dL Normal 74-106 [facility] Comment on above: Result Comment: JOHNNY GEMENT OF PATIENT CARE PER NURSING PROTOCOL Performed By: #### L 501.080 #### [facility] [address] [place], [address] FINGERSTICK GLU 71 mg/dL Low 74-106 [facility] Comment on above: Result Comment: JOHNNY GEMENT OF PATIENT CARE PER NURSING PROTOCOL Performed By: #### L 501.080 #### [facility] [address] [place], [address] FINGERSTICK GLU 106 mg/dL Normal 74-106 [facility] Comment on above: Result Comment: JOHNNY GEMENT OF PATIENT CARE PER NURSING PROTOCOL Performed By: #### L 501.080 #### [facility] [address] [place], [address] FINGERSTICK GLU 73 mg/dL Low 74-106 [facility] Comment on above: Result Comment: JOHNNY GEMENT OF PATIENT CARE PER NURSING PROTOCOL Performed By: #### L 501.2450, L500.4050, L100.0100 #### [facility] [address] [place], [address] FINGERSTICK GLU 54 mg/dL Low 74-106 [facility] Comment on above: Result Comment: JOHNNY GEMENT OF PATIENT CARE PER NURSING PROTOCOL Performed By: #### L 501.2450, L500.4050, L100.0100 #### [facility] [address] [place], [address] Basic Metabolic Profile (BMP )on 04-08-2025 BUN/CRE 16.5 RATIO Normal -20 [facility] Comment on above: Performed By: #### L 501.2450, L500.4050, L100.0100 #### [facility] [address] [place], [address] Calcium [Mass/Vol] 8.7 mg/dL Normal 7.6-11.0 [facility] Comment on above: Performed By: #### L 501.2450, L500.4050, L100.0100 #### [facility] [address] [place], [address] Chloride [Moles/Vol] 102 mmol/L Normal 98-108 [facility] Comment on above: Performed By: #### L 501.2450, L500.4050, L100.0100 #### [facility] [address] [place], [address] CO2 [Moles/Vol] 18.6 mmol/L Low 21.0-32.0 [facility] Comment on above: Performed By: #### L 501.2450, L500.4050, L100.0100 #### [facility] [address] [place], [address] Creatinine [Mass/Vol] 2.15 mg/dL High 0.70-1.20 [facility] Comment on above: Performed By: #### L 501.2450, L500.4050, L100.0100 #### [facility] [address] [place], [address] ECRCL 26.05 ml/min Low 50-250 [facility] Comment on above: Performed By: #### L 501.2450, L500.4050, L100.0100 #### [facility] [address] [place], [address] GAP 15 Normal 5-15 [facility] Comment on above: Performed By: #### L 501.2450, L500.4050, L100.0100 #### [facility] [address] [place], [address] GFR/1.73 sq M.predicted among non-blacks MDRD (S/P/Bld) [Vol rate/Area] 29 mL/min/{1.73_m2} Low >60 [facility] Comment on above: Result Comment: mL/m in/1.73m2 CKD-EPI Creatinine Equation (2020) Performed By: #### L 501.2450, L500.4050, L100.0100 #### [facility] [address] [place], [address] Glucose [Mass/Vol] 74 mg/dL Normal 70-99 [facility] Comment on above: Performed By: #### L 501.2450, L500.4050, L100.0100 #### [facility] [address] [place], [address] Potassium [Moles/Vol] 4.0 mmol/L Normal 3.3-5.1 [facility] Comment on above: Result Comment: Hemo lysis present, Results??could be affected. ?? Performed By: #### L 501.2450, L500.4050, L100.0100 #### [facility] [address] [place], [address] Sodium [Moles/Vol] 136 mmol/L Normal 133-145 [facility] Comment on above: Performed By: #### L 501.2450, L500.4050, L100.0100 #### [facility] [address] [place], [address] Urea nitrogen [Mass/Vol] 36 mg/dL High -19 [facility] Comment on above: Performed By: #### L 501.2450, L500.4050, L100.0100 #### [facility] [address] [place], [address] Bedside Glucoseon 04-08-2025 FINGERSTICK GLU 107 mg/dL High 74-106 [facility] Comment on above: Result Comment: JOHNNY GEMENT OF PATIENT CARE PER NURSING PROTOCOL Performed By: #### L 501.2450, L500.4050, L100.0100 #### [facility] [address] [place], [address] FINGERSTICK GLU 92 mg/dL Normal 74-106 [facility] Comment on above: Result Comment: JOHNNY GEMENT OF PATIENT CARE PER NURSING PROTOCOL Performed By: #### L 501.080 #### [facility] [address] [place], [address] FINGERSTICK GLU 101 mg/dL Normal 74-106 [facility] Comment on above: Result Comment: JOHNNY GEMENT OF PATIENT CARE PER NURSING PROTOCOL Performed By: #### L 501.080 #### [facility] [address] [place], [address] FINGERSTICK GLU 69 mg/dL Low 74-106 [facility] Comment on above: Result Comment: JOHNNY GEMENT OF PATIENT CARE PER NURSING PROTOCOL Performed By: #### L 501.2450, L500.4050, L100.0100 #### [facility] [address] [place], [address] CBC W/Diff, Automatedon 03-21 Anisocytosis Ql (Bld) 1+ Normal [facility] Comment on above: Performed By: #### L 501.2450, L500.4050, L100.0100 #### [facility] [address] [place], [address] Basic Metabolic Profile (BMP )on 04-07-2025 BUN/CRE 16.3 RATIO Normal 10-20 [facility] Comment on above: Performed By: #### L 501.080 #### [facility] [address] [place], [address] Calcium [Mass/Vol] 8.8 mg/dL Normal 7.6-11.0 [facility] Comment on above: Performed By: #### L 501.080 #### [facility] [address] [place], [address] Chloride [Moles/Vol] 103 mmol/L Normal 98-108 [facility] Comment on above: Performed By: #### L 501.080 #### [facility] [address] [place], [address] CO2 [Moles/Vol] 22.1 mmol/L Normal 21.0-32.0 [facility] Comment on above: Performed By: #### L 501.080 #### [facility] [address] [place], [address] Creatinine [Mass/Vol] 2.11 mg/dL High 0.70-1.20 [facility] Comment on above: Performed By: #### L 501.080 #### [facility] [address] [place], [address] ECRCL 26.44 ml/min Low 50-250 [facility] Comment on above: Performed By: #### L 501.080 #### [facility] [address] [place], [address] GAP 15 Normal 5-15 [facility] Comment on above: Performed By: #### L 501.080 #### [facility] [address] [place], [address] GFR/1.73 sq M.predicted among non-blacks MDRD (S/P/Bld) [Vol rate/Area] 30 mL/min/{1.73_m2} Low >60 [facility] Comment on above: Result Comment: mL/m in/1.73m2 CKD-EPI Creatinine Equation (2020) Performed By: #### L 501.080 #### [facility] [address] [place], [address] Glucose [Mass/Vol] 93 mg/dL Normal 70-99 [facility] Comment on above: Performed By: #### L 501.080 #### [facility] [address] [place], [address] Potassium [Moles/Vol] 3.7 mmol/L Normal 3.3-5.1 [facility] Comment on above: Performed By: #### L 501.080 #### [facility] [address] [place], [address] Sodium [Moles/Vol] 140 mmol/L Normal 133-145 [facility] Comment on above: Performed By: #### L 501.080 #### [facility] [address] [place], [address] Urea nitrogen [Mass/Vol] 34 mg/dL High 4-19 [facility] Comment on above: Performed By: #### L 501.080 #### [facility] [address] [place], [address] Bedside Glucoseon 04-07-2025 FINGERSTICK GLU 144 mg/dL High 74-106 [facility] Comment on above: Result Comment: JOHNNY GEMENT OF PATIENT CARE PER NURSING PROTOCOL Performed By: #### L 501.080 #### [facility] [address] [place], [address] FINGERSTICK GLU 108 mg/dL High 74-106 [facility] Comment on above: Result Comment: JOHNNY GEMENT OF PATIENT CARE PER NURSING PROTOCOL Performed By: #### L 501.080 #### [facility] [address] [place], [address] FINGERSTICK GLU 144 mg/dL High 74-106 [facility] Comment on above: Result Comment: JOHNNY GEMENT OF PATIENT CARE PER NURSING PROTOCOL Performed By: #### L 501.080 #### [facility] [address] [place], [address] FINGERSTICK GLU 92 mg/dL Normal 74-106 [facility] Comment on above: Result Comment: JOHNNY GEMENT OF PATIENT CARE PER NURSING PROTOCOL Performed By: #### L 501.080 #### [facility] [address] [place], [address] CBC W/Diff, Automatedon 03-21 ACANTHOCYTE 1+ Normal [facility] Comment on above: Performed By: #### L 501.080 #### [facility] [address] [place], [address] Anisocytosis Ql (Bld) 2+ Normal [facility] Comment on above: Performed By: #### L 501.080 #### [facility] [address] [place], [address] OVALOCYTE 1+ Normal [facility] Comment on above: Performed By: #### L 501.080 #### [facility] [address] [place], [address] PLT EST ADEQUATE Normal ADEQ [facility] Comment on above: Performed By: #### L 501.080 #### [facility] [address] [place], [address] SCHISTOCYTES RARE Normal [facility] Comment on above: Performed By: #### L 501.080 #### [facility] [address] [place], [address] SMEAR COMMENT SCANNED Normal [facility] Comment on above: Performed By: #### L 501.080 #### [facility] [address] [place], [address] Basic Metabolic Profile (BMP )on 04-06-2025 BUN/CRE 16.3 RATIO Normal 10-20 [facility] Comment on above: Performed By: #### L 501.2450, L500.4050, L100.0100 #### [facility] [address] [place], [address] Calcium [Mass/Vol] 8.6 mg/dL Normal 7.6-11.0 [facility] Comment on above: Performed By: #### L 501.2450, L500.4050, L100.0100 #### [facility] [address] [place], [address] Chloride [Moles/Vol] 106 mmol/L Normal 98-108 [facility] Comment on above: Performed By: #### L 501.2450, L500.4050, L100.0100 #### [facility] [address] [place], [address] CO2 [Moles/Vol] 19.4 mmol/L Low 21.0-32.0 [facility] Comment on above: Performed By: #### L 501.2450, L500.4050, L100.0100 #### [facility] [address] [place], [address] Creatinine [Mass/Vol] 2.11 mg/dL High 0.70-1.20 [facility] Comment on above: Performed By: #### L 501.2450, L500.4050, L100.0100 #### [facility] [address] [place], [address] ECRCL 26.44 ml/min Low 50-250 [facility] Comment on above: Performed By: #### L 501.2450, L500.4050, L100.0100 #### [facility] [address] [place], [address] GAP 15 Normal 5-15 [facility] Comment on above: Performed By: #### L 501.2450, L500.4050, L100.0100 #### [facility] [address] [place], [address] GFR/1.73 sq M.predicted among non-blacks MDRD (S/P/Bld) [Vol rate/Area] 30 mL/min/{1.73_m2} Low >60 [facility] Comment on above: Result Comment: mL/m in/1.73m2 CKD-EPI Creatinine Equation (2020) Performed By: #### L 501.2450, L500.4050, L100.0100 #### [facility] [address] [place], [address] Glucose [Mass/Vol] 77 mg/dL Normal 70-99 [facility] Comment on above: Performed By: #### L 501.2450, L500.4050, L100.0100 #### [facility] [address] [place], [address] Potassium [Moles/Vol] 2.9 mmol/L Low 3.3-5.1 [facility] Comment on above: Performed By: #### L 501.2450, L500.4050, L100.0100 #### [facility] [address] [place], [address] Sodium [Moles/Vol] 141 mmol/L Normal 133-145 [facility] Comment on above: Performed By: #### L 501.2450, L500.4050, L100.0100 #### [facility] [address] [place], [address] Urea nitrogen [Mass/Vol] 34 mg/dL High 4-19 [facility] Comment on above: Performed By: #### L 501.2450, L500.4050, L100.0100 #### [facility] [address] [place], [address] Bedside Glucoseon 04-06-2025 FINGERSTICK GLU 128 mg/dL High 74-106 [facility] Comment on above: Result Comment: JOHNNY JAUREGUI OF PATIENT CARE PER NURSING PROTOCOL Performed By: #### L 501.080 #### [facility] [address] [place], [address] FINGERSTICK GLU 139 mg/dL High 74-106 [facility] Comment on above: Result Comment: JOHNNY GEMENT OF PATIENT CARE PER NURSING PROTOCOL Performed By: #### L 501.080 #### [facility] [address] [place], [address] FINGERSTICK GLU 123 mg/dL High 74-106 [facility] Comment on above: Result Comment: JOHNNY GEMENT OF PATIENT CARE PER NURSING PROTOCOL Performed By: #### L 501.080 #### [facility] [address] [place], [address] FINGERSTICK GLU 71 mg/dL Low 74-106 [facility] Comment on above: Result Comment: JOHNNY GEMENT OF PATIENT CARE PER NURSING PROTOCOL Performed By: #### L 501.080 #### [facility] [address] [place], [address] CBC W/Diff, Automatedon 09 Absolute Lymph 0.83 X10 3/uL Normal 0.83-4.51 [facility] Comment on above: Performed By: #### L 501.2450, L500.4050, L100.0100 #### [facility] [address] [place], [address] Absolute Neut 2.2 X10 3/uL Normal 2.0-7.7 [facility] Comment on above: Performed By: #### L 501.2450, L500.4050, L100.0100 #### [facility] [address] [place], [address] Basophils/100 WBC (Bld) 1.8 % High 0-1 [facility] Comment on above: Performed By: #### L 501.2450, L500.4050, L100.0100 #### [facility] [address] [place], [address] Eosinophils/100 WBC (Bld) 6.8 % High 0-5 [facility] Comment on above: Performed By: #### L 501.2450, L500.4050, L100.0100 #### [facility] [address] [place], [address] Erythrocyte distribution width (RBC) [Ratio] 19.9 % High 11.6-14.6 [facility] Comment on above: Performed By: #### L 501.2450, L500.4050, L100.0100 #### [facility] [address] [place], [address] Hematocrit (Bld) [Volume fraction] 42.9 % Normal 40-54 [facility] Comment on above: Performed By: #### L 501.2450, L500.4050, L100.0100 #### [facility] [address] [place], [address] Hemoglobin (Bld) [Mass/Vol] 14.6 g/dL Normal 13.0-16.5 [facility] Comment on above: Performed By: #### L 501.2450, L500.4050, L100.0100 #### [facility] [address] [place], [address] IG% 0.500 Normal 0.0-0.9 [facility] Comment on above: Result Comment: IG% - Immature Granulocytes (promyelocytes, myelocytes and metamyelocytes) > 1% indicates that a LEFT SHIFT is Present. Performed By: #### L 501.2450, L500.4050, L100.0100 #### [facility] [address] [place], [address] Lymphocytes/100 WBC (Bld) 21.7 % Normal 19-41 [facility] Comment on above: Performed By: #### L 501.2450, L500.4050, L100.0100 #### [facility] [address] [place], [address] MCH (RBC) [Entitic mass] 29.2 pg Normal 27.0-32.0 [facility] Comment on above: Performed By: #### L 501.2450, L500.4050, L100.0100 #### [facility] [address] [place], [address] MCHC (RBC) [Mass/Vol] 34.0 g/dL Normal 32-36 [facility] Comment on above: Performed By: #### L 501.2450, L500.4050, L100.0100 #### [facility] [address] [place], [address] MCV (RBC) [Entitic vol] 85.8 fL Normal 80-94 [facility] Comment on above: Performed By: #### L 501.2450, L500.4050, L100.0100 #### [facility] [address] [place], [address] Monocytes/100 WBC (Bld) 12.8 % High 0-10 [facility] Comment on above: Performed By: #### L 501.2450, L500.4050, L100.0100 #### [facility] [address] [place], [address] Neutrophils/100 WBC (Bld) 56.4 % Normal 47-70 [facility] Comment on above: Performed By: #### L 501.2450, L500.4050, L100.0100 #### [facility] [address] [place], [address] Nucleated RBC (Bld) [#/Vol] 0 10*3/uL Normal 0-5 [facility] Comment on above: Performed By: #### L 501.2450, L500.4050, L100.0100 #### [facility] [address] [place], [address] Platelet mean volume (Bld) [Entitic vol] 10.4 fL Normal 6.2-12.0 [facility] Comment on above: Performed By: #### L 501.2450, L500.4050, L100.0100 #### [facility] [address] [place], [address] Platelets (Bld) [#/Vol] 155 10*3/uL Normal 150-450 [facility] Comment on above: Performed By: #### L 501.2450, L500.4050, L100.0100 #### [facility] [address] [place], [address] RBC (Bld) [#/Vol] 5.00 10*6/uL Normal 4.6-6.[address] [facility] Comment on above: Performed By: #### L 501.2450, L500.4050, L100.0100 #### [facility] [address] [place], [address] RDW SD 60.6 fl High 35.1-43.9 [facility] Comment on above: Performed By: #### L 501.2450, L500.4050, L100.0100 #### [facility] [address] [place], [address] WBC (Bld) [#/Vol] 3.8 10*3/uL Low 4.4-11.0 [facility] Comment on above: Performed By: #### L 501.2450, L500.4050, L100.0100 #### [facility] [address] [place], [address] Liver Profileon 04-06-2025 Albumin [Mass/Vol] 3.1 g/dL Low 3.4-4.8 [facility] Comment on above: Performed By: #### L 501.2450, L500.4050, L100.0100 #### [facility] [address] [place], [address] ALK PHOS 104 U/L Normal 40-129 [facility] Comment on above: Performed By: #### L 501.2450, L500.4050, L100.0100 #### [facility] [address] [place], [address] ALT [Catalytic activity/Vol] 12 U/L Normal <=46 [facility] Comment on above: Performed By: #### L 501.2450, L500.4050, L100.0100 #### [facility] [address] [place], [address] AST [Catalytic activity/Vol] 40 U/L High <=37 [facility] Comment on above: Performed By: #### L 501.2450, L500.4050, L100.0100 #### [facility] [address] [place], [address] Bilirubin [Mass/Vol] 1.81 mg/dL High 0.00-1.30 [facility] Comment on above: Performed By: #### L 501.2450, L500.4050, L100.0100 #### [facility] [address] [place], [address] Bilirubin.direct [Mass/Vol] 1.13 mg/dL High 0.00-0.30 [facility] Comment on above: Performed By: #### L 501.2450, L500.4050, L100.0100 #### [facility] [address] [place], [address] Globulin (S) [Mass/Vol] 2.2 g/dL Normal 2.2-4.2 [facility] Comment on above: Performed By: #### L 501.2450, L500.4050, L100.0100 #### [facility] [address] [place], [address] T PROT 5.3 g/dL Low 5.9-8.4 [facility] Comment on above: Performed By: #### L 501.2450, L500.4050, L100.0100 #### [facility] [address] [place], [address] T4 Free Directon 04-06-2025 T4 FREE DIRECT 1.20 ng/dL Normal 0.76-1.46 [facility] Comment on above: Performed By: #### L 501.2450, L500.4050, L100.0100 #### [facility] [address] [place], [address] Urinalysis, Completeon 04-06 BACTERIA 0 SEEN Normal None Seen [facility] Comment on above: Order Comment: need of a specimen 04-05-25 07:46CLEAN CATCH Performed By: #### L 501.080 #### [facility] [address] [place], [address] EPI,SQUAMOUS 0 SEEN Normal 0-[address] [place] [address] Comment on above: Order Comment: need of a specimen 04-05-25 07:46CLEAN CATCH Performed By: #### L 501.080 #### [facility] [address] [place], [address] Mucus Ql (Urine sed) 0 SEEN Normal [facility] Comment on above: Order Comment: need of a specimen 04-05-25 07:46CLEAN CATCH Performed By: #### L 501.080 #### [facility] [address] [place], [address] RBC 0 SEEN Normal 0-[address] [place] [address] Comment on above: Order Comment: need of a specimen 04-05-25 07:46CLEAN CATCH Performed By: #### L 501.080 #### [facility] [address] [place], [address] WBC 0 SEEN Normal 0-[address] [place] [address] Comment on above: Order Comment: need of a specimen 04-05-25 07:46CLEAN CATCH Performed By: #### L 501.080 #### [facility] [address] [place], [address] Absolute lymphocyte countOrd ered By: Shaun Taveras on 04-05-2025 Lymphocytes Auto (Unsp spec) [#/Vol] 0.86 10*3/uL 0.83-4.51 [facility] Absolute neutrophil countOrd ered By: Shaun Taveras on 04-05-2025 Neutrophils (Bld) [#/Vol] 4.2 10*3/uL 2.0-7.7 [facility] Anion gap in Serum or Plasma Ordered By: Shaun Taveras on 04-05-2025 Anion gap [Moles/Vol] 18 mmol/L High 5-15 [facility] Automated lymphocyte count a s percentage of total leukocytesOrdered By: Shaun Taveras on 04-05-2025 Lymphocytes/100 WBC Auto (Unsp spec) 14.4 % Low 19-41 [facility] BUN/creatinine ratioOrdered By: Shaun Taveras on 04-05-2025 Urea nitrogen/Creatinine [Mass ratio] 15.0 mg/mg 10- [facility] Basic Metabolic Profile (BMP )on 04-05-2025 BUN/CRE 15.1 RATIO Normal -20 [facility] Comment on above: Performed By: #### L 501.2450, L500.4050, L100.0100 #### [facility] [address] [place], [address] Calcium [Mass/Vol] 9.3 mg/dL Normal 7.6-11.0 [facility] Comment on above: Performed By: #### L 501.2450, L500.4050, L100.0100 #### [facility] [address] [place], [address] Chloride [Moles/Vol] 103 mmol/L Normal 98-108 [facility] Comment on above: Performed By: #### L 501.2450, L500.4050, L100.0100 #### [facility] [address] [place], [address] CO2 [Moles/Vol] 17.4 mmol/L Low 21.0-32.0 [facility] Comment on above: Performed By: #### L 501.2450, L500.4050, L100.0100 #### [facility] [address] [place], [address] Creatinine [Mass/Vol] 2.36 mg/dL High 0.70-1.20 [facility] Comment on above: Performed By: #### L 501.2450, L500.4050, L100.0100 #### [facility] [address] [place], [address] ECRCL 23.64 ml/min Low 50-250 [facility] Comment on above: Performed By: #### L 501.2450, L500.4050, L100.0100 #### [facility] [address] [place], [address] GAP 19 High 5-15 [facility] Comment on above: Performed By: #### L 501.2450, L500.4050, L100.0100 #### [facility] [address] [place], [address] GFR/1.73 sq M.predicted among non-blacks MDRD (S/P/Bld) [Vol rate/Area] 26 mL/min/{1.73_m2} Low >60 [facility] Comment on above: Result Comment: mL/m in/1.73m2 CKD-EPI Creatinine Equation (2020) Performed By: #### L 501.2450, L500.4050, L100.0100 #### [facility] [address] [place], [address] Glucose [Mass/Vol] 86 mg/dL Normal 70-99 [facility] Comment on above: Performed By: #### L 501.2450, L500.4050, L100.0100 #### [facility] [address] [place], [address] Potassium [Moles/Vol] 3.9 mmol/L Normal 3.3-5.1 [facility] Comment on above: Result Comment: Hemo lysis present, Results??could be affected. ?? Performed By: #### L 501.2450, L500.4050, L100.0100 #### [facility] [address] [place], [address] Sodium [Moles/Vol] 139 mmol/L Normal 133-145 [facility] Comment on above: Performed By: #### L 501.2450, L500.4050, L100.0100 #### [facility] [address] [place], [address] Urea nitrogen [Mass/Vol] 36 mg/dL High 4-19 [facility] Comment on above: Performed By: #### L 501.2450, L500.4050, L100.0100 #### [facility] [address] [place], [address] BUN/CRE 15.0 RATIO Normal 10-20 [facility] Comment on above: Performed By: #### L 501.080 #### [facility] [address] [place], [address] Calcium [Mass/Vol] 9.4 mg/dL Normal 7.6-11.0 [facility] Comment on above: Performed By: #### L 501.080 #### [facility] [address] [place], [address] Chloride [Moles/Vol] 103 mmol/L Normal 98-108 [facility] Comment on above: Performed By: #### L 501.080 #### [facility] [address] [place], [address] CO2 [Moles/Vol] 19.6 mmol/L Low 21.0-32.0 [facility] Comment on above: Performed By: #### L 501.080 #### [facility] [address] [place], [address] Creatinine [Mass/Vol] 2.38 mg/dL High 0.70-1.20 [facility] Comment on above: Performed By: #### L 501.080 #### [facility] [address] [place], [address] ECRCL 23.30 ml/min Low 50-250 [facility] Comment on above: Performed By: #### L 501.080 #### [facility] [address] [place], [address] GAP 18 High 5-15 [facility] Comment on above: Performed By: #### L 501.080 #### [facility] [address] [place], [address] GFR/1.73 sq M.predicted among non-blacks MDRD (S/P/Bld) [Vol rate/Area] 26 mL/min/{1.73_m2} Low >60 [facility] Comment on above: Result Comment: mL/m in/1.73m2 CKD-EPI Creatinine Equation (2020) Performed By: #### L 501.080 #### [facility] [address] [place], [address] Glucose [Mass/Vol] 75 mg/dL Normal 70-99 [facility] Comment on above: Performed By: #### L 501.080 #### [facility] [address] [place], [address] Potassium [Moles/Vol] 3.7 mmol/L Normal 3.3-5.1 [facility] Comment on above: Result Comment: Hemo lysis present, Results??could be affected. ?? Performed By: #### L 501.080 #### [facility] [address] [place], [address] Sodium [Moles/Vol] 141 mmol/L Normal 133-145 [facility] Comment on above: Performed By: #### L 501.080 #### [facility] [address] [place], [address] Urea nitrogen [Mass/Vol] 36 mg/dL High 4-19 [facility] Comment on above: Performed By: #### L 501.080 #### [facility] [address] [place], [address] Basophil percentageOrdered B y: Shaun Taveras on 04-05-2025 Basophils/100 WBC (Bld) 1.3 % High 0-1 [facility] Bedside Glucoseon 04-05-2025 FINGERSTICK GLU 113 mg/dL High 74-106 [facility] Comment on above: Result Comment: JOHNNY GEMENT OF PATIENT CARE PER NURSING PROTOCOL Performed By: #### L 501.080 #### [facility] [address] [place], [address] FINGERSTICK GLU 99 mg/dL Normal 74-106 [facility] Comment on above: Result Comment: JOHNNY GEMENT OF PATIENT CARE PER NURSING PROTOCOL Performed By: #### L 501.2450, L500.4050, L100.0100 #### [facility] [address] [place], [address] FINGERSTICK GLU 91 mg/dL Normal 74-106 [facility] Comment on above: Result Comment: JOHNNY GEMENT OF PATIENT CARE PER NURSING PROTOCOL Performed By: #### L 501.080 #### [facility] [address] [place], [address] Blood manual differential co mment interpretation (narrative result)Ordered By: Shaun Taveras on 04-05-2025 Manual differential comment Raymond (Bld) [Interp] SCANNED [facility] Comment on above: ANISOCYTOSIS 1+ CBC W/Diff, Automatedon 09-1 -2024 Absolute Lymph 1.22 X10 3/uL Normal 0.83-4.51 [facility] Comment on above: Performed By: #### L 501.2450, L500.4050, L100.0100 #### [facility] [address] [place], [address] Absolute Neut 3.6 X10 3/uL Normal 2.0-7.7 [facility] Comment on above: Performed By: #### L 501.2450, L500.4050, L100.0100 #### [facility] [address] [place], [address] Basophils/100 WBC (Bld) 1.6 % High 0-1 [facility] Comment on above: Performed By: #### L 501.2450, L500.4050, L100.0100 #### [facility] [address] [place], [address] Eosinophils/100 WBC (Bld) 1.4 % Normal 0-5 [facility] Comment on above: Performed By: #### L 501.2450, L500.4050, L100.0100 #### [facility] [address] [place], [address] Erythrocyte distribution width (RBC) [Ratio] 20.6 % High 11.6-14.6 [facility] Comment on above: Performed By: #### L 501.2450, L500.4050, L100.0100 #### [facility] [address] [place], [address] Hematocrit (Bld) [Volume fraction] 46.3 % Normal 40-54 [facility] Comment on above: Performed By: #### L 501.2450, L500.4050, L100.0100 #### [facility] [address] [place], [address] Hemoglobin (Bld) [Mass/Vol] 15.5 g/dL Normal 13.0-16.5 [facility] Comment on above: Performed By: #### L 501.2450, L500.4050, L100.0100 #### [facility] [address] [place], [address] IG% 0.300 Normal 0.0-0.9 [facility] Comment on above: Result Comment: IG% - Immature Granulocytes (promyelocytes, myelocytes and metamyelocytes) > 1% indicates that a LEFT SHIFT is Present. Performed By: #### L 501.2450, L500.4050, L100.0100 #### [facility] [address] [place], [address] Lymphocytes/100 WBC (Bld) 21.0 % Normal 19-41 [facility] Comment on above: Performed By: #### L 501.2450, L500.4050, L100.0100 #### [facility] [address] [place], [address] MCH (RBC) [Entitic mass] 29.0 pg Normal 27.0-32.0 [facility] Comment on above: Performed By: #### L 501.2450, L500.4050, L100.0100 #### [facility] [address] [place], [address] MCHC (RBC) [Mass/Vol] 33.5 g/dL Normal 32-36 [facility] Comment on above: Performed By: #### L 501.2450, L500.4050, L100.0100 #### [facility] [address] [place], [address] MCV (RBC) [Entitic vol] 86.7 fL Normal 80-94 [facility] Comment on above: Performed By: #### L 501.2450, L500.4050, L100.0100 #### [facility] [address] [place], [address] Monocytes/100 WBC (Bld) 13.6 % High 0-10 [facility] Comment on above: Performed By: #### L 501.2450, L500.4050, L100.0100 #### [facility] [address] [place], [address] Neutrophils/100 WBC (Bld) 62.1 % Normal 47-70 [facility] Comment on above: Performed By: #### L 501.2450, L500.4050, L100.0100 #### [facility] [address] [place], [address] Nucleated RBC (Bld) [#/Vol] 0 10*3/uL Normal 0-5 [facility] Comment on above: Performed By: #### L 501.2450, L500.4050, L100.0100 #### [facility] [address] [place], [address] Platelet mean volume (Bld) [Entitic vol] 10.6 fL Normal 6.2-12.0 [facility] Comment on above: Performed By: #### L 501.2450, L500.4050, L100.0100 #### [facility] [address] [place], [address] Platelets (Bld) [#/Vol] 159 10*3/uL Normal 150-450 [facility] Comment on above: Performed By: #### L 501.2450, L500.4050, L100.0100 #### [facility] [address] [place], [address] RBC (Bld) [#/Vol] 5.34 10*6/uL Normal 4.6-6.[address] [facility] Comment on above: Performed By: #### L 501.2450, L500.4050, L100.0100 #### [facility] [address] [place], [address] RDW SD 62.0 fl High 35.1-43.9 [facility] Comment on above: Performed By: #### L 501.2450, L500.4050, L100.0100 #### [facility] [address] [place], [address] WBC (Bld) [#/Vol] 5.8 10*3/uL Normal 4.4-11.0 [facility] Comment on above: Performed By: #### L 501.2450, L500.4050, L100.0100 #### [facility] [address] [place], [address] OVALOCYTE RARE Normal [facility] Comment on above: Performed By: #### L 501.080 #### [facility] [address] [place], [address] Anisocytosis Ql (Bld) 1+ Normal [facility] Comment on above: Performed By: #### L 501.080 #### [facility] [address] [place], [address] PLT MORPH LARGE Normal [facility] Comment on above: Performed By: #### L 501.080 #### [facility] [address] [place], [address] SMEAR COMMENT SCANNED Normal [facility] Comment on above: Result Comment: ANIS OCYTOSIS 1+ Performed By: #### L 501.080 #### [facility] [address] [place], [address] CPK Total, Creatine Kinaseon 04-05-2025 CPK TOTAL 491 U/L High 24-195 [facility] Comment on above: Performed By: #### L 501.2450, L500.4050, L100.0100 #### [facility] [address] [place], [place], [address] CPK TOTAL 449 U/L High 24-195 [facility] Comment on above: Performed By: #### L 501.080 #### [facility] [address] [place], [place], [address] Carbon dioxide, total [Moles /volume] in Central venous bloodOrdered By: Shaun Taveras on 04-05-2025 CO2 [Moles/Vol] 19.6 mmol/L Low 21.0-32.0 [facility] Chest 1 View (Portable)on Chest 1 View (Portable) [facility] Imaging Services [address] [place], [place] [address] Chest 1 View (Portable) MR#: [id number] Acct: [id number] Name: MEGAN NASCIMENTO Rep #: [id number] : 1940 M 84 From: Rossi walker MD PCP: Dr. Rigoberto Durand MD Status: REG ER Study: Chest 1 View (Portable) Date of Exam: 04/05/25 Exam# [id number] Ordering Dr: Shaun Taveras DO PROCEDURE: CHEST 1 VIEW (PORTABLE) 04/05/2025 REASON FOR EXAM: CHF TECHNIQUE: Frontal view of the chest. COMPARISON: CT scan of the chest on 04/01/2025. FINDINGS: Moderate bilateral pleural effusions. Passive atelectatic airspace disease of the lower lobes. Moderate central pulmonary venous congestion. Moderate interstitial pulmonary congestion. AICD is in good position. Enlarged cardiac silhouette. Normal mediastinum and antonio. Normal visualized pulmonary arteries. Atheromatous plaques of the visualized aortic arch and descending thoracic aorta. Diffuse spondylosis of the visualized thoracic spine. Normal visualized ribs, clavicles. Degenerative joint disease. There is no demonstrated abnormality of the visualized soft tissue structures of the upper abdomen. RAD/Chest 1 View (Portable) IMPRESSION: Moderate bilateral pleural effusions. Passive atelectatic airspace disease of the lower lobes. Moderate central pulmonary venous congestion. Moderate interstitial pulmonary congestion. AICD is in good position. Enlarged cardiac silhouette. Reading Location: [place] [address] CC: Dr. Rigoberto Durand MD; Shaun Taveras DO Stockroom Clerk: Signed Normal [facility] Chloride assayOrdered By: Emily Taveras on 04-05-2025 Chloride [Moles/Vol] 103 mmol/L 98-108 [facility] Consultation - Nephrologyon 04-05-2025 Consultation - Nephrology [facility] Medical Records Department [address] [place] [address] Consultation - Nephrology 04/05/25 1208 MR#: [id number] Acct: [id number] Name: MEGAN NASCIMENTO Rep #: [id number] : 1940 84 From: Bushra Woodall MD PCP: Dr. Rigoberto Durand MD Status:ADM IN Location: [place] [address] Assessment Plan Assessment/Plan (1) CKD (chronic kidney disease), stage IV: PLAN: Reviewed prior records, his creatinine has fluctuated between 2.1-2.3 over the last several months. Urine analysis was fairly benign, no significant proteinuria. CT abdomen without any hydronephrosis. Clinically volume overloaded. Lasix IV 40 mg twice daily for now. HPI Consult Data Date of Consult: 04/05/25 HPI Narrative Reason for Consultation: CKD 4 HPI Narrative: MEGAN NASCIMENTO, is a 84 M who presents To the hospital with fall, dizziness. Nephrology on consultation in view of CKD, CHF. He has no history of congestive heart failure with low ejection fraction. Imaging consistent with pulmonary edema. [facility] Medical History (Updated 04/05/25 @ 12:[address] Bushra Woodall MD) Hypothyroidism Chronic pain of toe of left foot [...] Unk nown History tablet,extended release 24 hr [id number] ic acid-vit 1 tab PO DAILY not [...] Pain 1-10 Or Fever >100.7 #0 tabs doxycycline monohydrate 100 mg 100 mg PO [...] 30 days #0 12/02/23 Unknown Rx tabs doxycycline hyclate 100 mg tablet 100 mg PO BID 04/05/25 Unknown Hi story Allergy/AdvReac Type Severity Reaction Status Date / Time No Known Allergies Allergy Verified 04/05/25 00:00 Family History Other Cancer Hypertension Surgical History History of permanent cardiac pacemaker placement Social History household members: spouse Smoking Status: Never smoker alcohol intake: never substance use type: does not use ROS ROS Narrative negative except above Physical Exam Narrative Alert awake oriented x 3 no obvious distress no p (more content not included)... Normal [facility] Echo Completeon 04-05-2025 Echo [facility] Cardiovascular Services [address] [place] [address] Echo Complete 04/05/25 0843 MR#: [id number] Acct: [id number] Name: MEGAN NASCIMENTO Rep #: [id number] : 1940 84 From: Esther Hutchins MD Attending Dr: Dr. Jaden Cedillo MD Status: ADM IN Ordering Dr: Rigoberto Durand MD Date: 04/05/25 Location: U Sex: M C Admitted: 04/05/25 Reason For Study Reason For Study: CHF Procedure This was a 2D Doppler, Color Flow transthoracic echocardiogram. Exam performed portable in patient room. Left Ventricle Normal size and thickness. Severe global LV systolic dysfunction. Estimated LVEF 10%. Stage I diastolic dysfunction. Right Ventricle Normal right ventricle. ICD or pacer leads identified within the right ventricle. Atria There is severe biatrial dilatation. Mitral Valve Mild (1+) mitral valve insufficiency. Tricuspid Valve Severe (4+) tricuspid valve insufficiency. 35. Aortic Valve Mildly calcified aortic valve. Mild aortic valve stenosis. Mild aortic valve regurgitation. Pulmonic Valve The pulmonic valve is not well visualized. Trivial pulmonic valve insufficiency. Great Vessels Mildly dilated aortic root. Pericardium/Pleural No pericardial effusion. Moderate left pleural effusion. MMode/2D Measurements Calculations LVIDd: 5.3 cm IVSd: 1.1 cm LVOT diam: 2.1 cm LVIDs: 4.8 cm LVPWd: 0.88 cm LVOT area: 3.3 cm2 RVDd: 5.2 cm FS: 10.0 % Ao root diam: 4.2 cm LAV(MOD-bp): 62.4 ml LVAd ap4: 39.3 cm2 LA dimension: 4.9 cm LAV(MOD-bp) Indexed: 32.4 ml/m2 LVLd ap4: 8.4 cm LAV(MOD-sp2): 65.4 ml EDV(MOD-sp4): 148.0 ml LAV(MOD-sp4): 61.1 ml EDV(sp4-el): 155.6 ml LVAs ap4: 33.2 cm2 LVLs ap4: 7.7 cm ESV(MOD-sp4): 117.0 ml ESV(sp4-el): 121.2 ml EF(MOD-sp4): 20.9 % EF(sp4-el): 22.1 % SV(MOD-sp4): 30.9 ml SV(sp4-el): 34.4 ml LA A4 area: 22.6 cm2 SI(MOD-sp4): 16.1 ml/m2 LA dimension(2D): 4.8 cm RA A4 area: 32.0 cm2 TAPSE: 1.3 cm Time Measurements MV dec time: 0.27 sec Doppler Measurements Calculations MV E max jaswant: 51.1 cm/sec Lat Peak E' Jaswant: 7.2 cm/sec Med Peak E' Jaswant: 2.9 cm/sec MV A max jaswant: 63.7 cm/sec E/E' lat: 7.1 E/E' med: 17.5 MV E/A: 0.80 Ao V2 max: 139.6 cm/sec AI max jaswant: 296.8 cm/sec MV dec slope: 192.3 cm/sec2 Ao max P.8 mmHg AI max P.2 mmHg Ao V2 mean: 92.7 cm/sec Ao mean P.1 mmHg AI dec slope: 155.3 cm/sec2 Ao V2 VTI: 30.5 cm AI P1/2t: 559.6 msec AV (velocity ratio): 0.69 BRITTA(I,D): 2.3 cm2 BRITTA(V,D): 2.4 cm2 LV V1 max: 100.3 cm/sec SV(LVOT): 70.3 ml PA V2 max: 60.8 cm/sec LV V1 max P.0 mmHg LV V1 mean P.5 mmHg LV V1 mean: 76.0 cm/sec LV V1 VTI: 21.1 cm PI end-d jaswant: 70.1 cm/sec TR max jaswant: 221.8 cm/sec TR max P.0 mmHg ECHO/Echo Complete Interpretation Summary Severe global LV systolic dysfunction. Estimated LVEF 10%. Stage I diastolic dysfunction. There is severe biatrial dilatation. Mild (1+) mitral valve insufficiency. Severe (4+) tricuspid valve insufficiency. Mildly calcified aortic valve. Mild aortic valve stenosis. Mild aortic valve regurgitation. Mildly dilated aortic root. Moderate left pleural effusion. Ordering Physician: Rigoberto Durand Referring Physician: Rigoberto Brandt Performed By: Julia Cordova, RDCS, RVT 04/05/25 1111 Date Esther Hutchins MD CC: Dr. Rigoberto Durand MD; Dr. Jaden Cedillo MD Date Dictated: 04/05/25 0843 Date Transcribed: 04/05/25 1111 Stockroom Clerk: Signed Normal [facility] Emergency Department Summary on 04-05-2025 Emergency Department Summary [facility] Medical Records Department [address] [place] [address] Emergency Department Summary 04/05/25 MR#: [id number] Acct: [id number] Name: MEGAN NASCIMENTO Rep #: [id number] : 1940 84 From: Shaun Taveras DO PCP: Dr. Rigoberto Durand MD Status:REG ER Location: ED HPI History of Present Illness Chief Complaint: Fall Informant: patient, family and EMS Narrative Narrative: Patient is an 84-year-old male with past medical history of congestive heart failure insulin- dependent type 2 diabetes hypothyroidism and hypertension. He lives at home alone. He states that today he fell like he had to use the restroom and therefore he went and sat on the toilet. He states he was there between 2 and 6 PM. He states he finally decided that he should get up and therefore he grabbed his rollator and stood up but then felt extremely weak once again and reportedly slid down onto the floor/shower. He states he did not strike his head or have loss of consciousness. He states he laid there until he was found and EMS was able to help him up and this was approximately another 5 hours or so. He denies any pain at this time but secondary to his persistent weakness inability to care for himself and concern for rhabdomyolysis based on his prolonged downtime he was brought in for evaluation [facility] Medical History Chronic pain of toe of [...] Unk nown History tablet,extended release 24 hr vxepkluwfuuu-oay-eev ic acid-vit 1 tab PO DAILY not [...] Pain 1-10 Or Fever >100.7 #0 tabs doxycycline monohydrate 100 mg 100 mg PO [...] 30 days #0 12/02/23 Unknown Rx tabs doxycycline hyclate 100 mg tablet 100 mg PO BID 04/05/25 Unknown Hi story Allergy/AdvReac Type Severity Reaction Status Date / Time No Known Allergies Allergy Verified 04/05/25 00:00 Family History Other Cancer Hypertension Surgical History History of permanent cardiac pacemaker placement Social History (Revi (more content not included)... Normal [facility] Eosinophil percentageOrdered By: Sahun Taveras on 04-05-2025 Eosinophils/100 WBC (Bld) 2.2 % 0-5 [facility] Erythrocyte distribution wid th ratioOrdered By: Shaun Taveras on 04-05-2025 Erythrocyte distribution width (RBC) [Ratio] 20.6 % High 11.6-14.6 [facility] Erythrocyte distribution wid th standard deviationOrdered By: Shaun Taveras on 04-05-2025 Erythrocyte distribution width (RBC) [Ratio] 60.8 fl High 35.1-43.9 [facility] Glomerular filtration rate ( GFR) estimation/1.73 sq m using serum, plasma, or whole bOrdered By: Shaun Taveras on 04-05-2025 GFR/1.73 sq M.predicted among non-blacks MDRD (S/P/Bld) [Vol rate/Area] 26 mL/min/{1.73_m2} Low >60 [facility] Comment on above: mL/min/1.73m2 CKD-EP I Creatinine Equation (2020) Hematocrit Auto (Bld) [Volum e fraction]Ordered By: Shaun Taveras on 04-05-2025 Hematocrit (Bld) [Volume fraction] 46.9 % 40-54 [facility] Hemoglobin measurementOrdere d By: Shaun Taveras on 04-05-2025 Hemoglobin (Bld) [Mass/Vol] 16.2 g/dL 13.0-16.5 [facility] Immature granulocytes/100 WB C Auto (Bld)Ordered By: Shaun Taveras on 04-05-2025 Immature granulocytes/100 WBC (Bld) 0.500 % 0.0-0.9 [facility] Comment on above: IG% - Immature Granu locytes (promyelocytes, myelocytes and metamyelocytes) > 1% indicates that a LEFT SHIFT is Present. Laboratory - Hematology and Cell countsOrdered By: Shaun Taveras on 04-05-2025 Anisocytosis Ql (Bld) 1+ [facility] Liver Profileon 04-05-2025 Albumin [Mass/Vol] 3.4 g/dL Normal 3.4-4.8 [facility] Comment on above: Performed By: #### L 501.080 #### [facility] Laboratory [address] [place], [place], [id number] ALK PHOS 118 U/L Normal 40-129 [facility] Comment on above: Performed By: #### L 501.080 #### [facility] Laboratory [address] [place], [address] ALT [Catalytic activity/Vol] 15 U/L Normal <=46 [facility] Comment on above: Performed By: #### L 501.080 #### [facility] Laboratory [address] [place], [address] AST [Catalytic activity/Vol] 54 U/L High <=37 [facility] Comment on above: Result Comment: Hemo lysis present, Results??could be affected. ?? Performed By: #### L 501.080 #### [facility] Laboratory [address] [place], [address] Bilirubin [Mass/Vol] 2.01 mg/dL High 0.00-1.30 [facility] Comment on above: Performed By: #### L 501.080 #### [facility] Laboratory [address] [place], [address] Bilirubin.direct [Mass/Vol] 1.03 mg/dL High 0.00-0.30 [facility] Comment on above: Result Comment: Hemo lysis present, Results??could be affected. ?? Performed By: #### L 501.080 #### [facility] Laboratory [address] [place], [address] Globulin (S) [Mass/Vol] 2.9 g/dL Normal 2.2-4.2 [facility] Comment on above: Performed By: #### L 501.080 #### [facility] Laboratory [address] [place], [address] T PROT 6.3 g/dL Normal 5.9-8.4 [facility] Comment on above: Performed By: #### L 501.080 #### [facility] Laboratory [address] [place], [address] MCV (mean corpuscular volume ) determinationOrdered By: Shaun Taveras on 04-05-2025 MCV (RBC) [Entitic vol] 85.9 fL 80-94 [facility] Magnesiumon 04-05-2025 Magnesium [Mass/Vol] 2.0 mg/dL Normal 1.5-2.2 [facility] Comment on above: Performed By: #### L 501.080 #### [facility] Laboratory [address] [place], [address] Magnesium measurement (mass/ volume)Ordered By: Shaun Taveras on 04-05-2025 Magnesium (Unsp spec) [Mass/Vol] 2.0 mg/dL 1.5-2.2 [facility] Mean corpuscular hemoglobin (MCH) determinationOrdered By: Shaun Taveras on 04-05-2025 MCH (RBC) [Entitic mass] 29.7 pg 27.0-32.0 [facility] Mean corpuscular hemoglobin concentration (MCHC) determinationOrdered By: Shaun Taveras on 04-05-2025 MCHC (RBC) [Mass/Vol] 34.5 g/dL 32-36 [facility] Mean platelet volume determi nationOrdered By: Shaun Taveras on 04-05-2025 Platelet mean volume (Bld) [Entitic vol] 11.2 fL 6.2-12.0 [facility] Monocyte percentageOrdered B y: Shaun Taveras on 04-05-2025 Monocytes/100 WBC (Bld) 11.2 % High 0-10 [facility] Natriuretic peptide.B prohor nancy N-Terminal [Mass/volume] in Serum or PlasmaOrdered By: Shaun Taveras on 04-05-2025 Natriuretic peptide.B prohormone N-Terminal [Mass/Vol] > 13584 pg/mL High <1800 [facility] Comment on above: Heart Failure Unlike ly: < 300 pg/mLHeart Failure Likely< 50 Years: > 450 pg/mL50-75 Years: > 900 pg/mL>75 Years: > 1800 pg/mL Neutrophil percentageOrdered By: Shaun Taveras on 04-05-2025 Neutrophils/100 WBC (Bld) 70.4 % High 47-70 [facility] Nucleated red blood cell per centageOrdered By: Shaun Taveras on 04-05-2025 Nucleated RBC/100 WBC (Bld) [Ratio] 0 % 0-5 [facility] Ovalocyte detectionOrdered B y: Shaun Taveras on 04-05-2025 Ovalocytes LM Ql (Bld) RARE [facility] Platelet countOrdered By: Emily Taveras on 04-05-2025 Platelets (Bld) [#/Vol] 194 10*3/uL 150-450 [facility] Platelet morphologyOrdered B y: Shaun Taveras on 04-05-2025 Platelet morphology finding Nom (Bld) LARGE [facility] Potassium measurement (mass/ volume)Ordered By: Shaun Taveras on 04-05-2025 Potassium (Unsp spec) [Mass/Vol] 3.7 mmol/L 3.3-5.1 [facility] Comment on above: Hemolysis present, R esults could be affected. Pro- Brain NATRIURETIC PEPTI Davis 04-05-2025 proBNP > 67910 High <=1800 [facility] Comment on above: Result Comment: Hear t Failure Unlikely: < 300 pg/mL Heart Failure Likely < 50 Years: > 450 pg/mL 50-75 Years: > 900 pg/mL >75 Years: > 1800 pg/mL Performed By: #### L 501.080 #### [facility] Laboratory [address] [place], [place], [id number] RBC Auto (Bld) [#/Vol]Ordere d By: Shaun Taveras on 04-05-2025 RBC (Bld) [#/Vol] 5.46 10*6/uL 4.6-6.[address] [facility] Serum creatinine measurement (mass/volume)Ordered By: Shaun Taveras on 04-05-2025 Creatinine [Mass/Vol] 2.38 mg/dL High 0.70-1.20 [facility] Serum glucose measurement (m ass/volume)Ordered By: Shaun Taveras on 04-05-2025 Glucose [Mass/Vol] 75 mg/dL 70-99 [facility] Serum or plasma calcium geena urement (mass/volume)Ordered By: Shaun Taveras on 04-05-2025 Calcium [Mass/Vol] 9.4 mg/dL 7.6-11.0 [facility] Serum or plasma creatine kin ase activityOrdered By: Shaun Taveras on 04-05-2025 CK [Catalytic activity/Vol] 449 U/L High 24-195 [facility] Serum or plasma urea nitroge n measurement (mass/volume)Ordered By: Shaun Taveras on 04-05-2025 Urea nitrogen [Mass/Vol] 36 mg/dL High 4-19 [facility] Sodium levelOrdered By: Naren Taveras on 04-05-2025 Sodium [Moles/Vol] 141 mmol/L 133-145 [facility] TSH DL <= 0.005 mIU/L QnOrde red By: Shaun Taveras on 04-05-2025 TSH Qn 13.700 uIU/mL High 0.300-4.200 [facility] Thyroid Stim Hormone (TSH)on 04-05-2025 TSH 13.700 uIU/mL High 0.300-4.200 [facility] Comment on above: Performed By: #### L 501.080 #### [facility] Laboratory [address] [place], [place], [address] White blood cell (WBC) count Ordered By: Shaun Taveras on 04-05-2025 WBC (Bld) [#/Vol] 6.0 10*3/uL 4.4-11.0 [facility] 12 Lead EKGon 04-01-2025 12 Lead EKG [facility] Cardiovascular Services [address] [place] [address] 12 Lead EKG 04/01/25 1257 MR#: [id number] Acct: [id number] Name: MEGAN NASCIMENTO Rep #: [id number] : 1940 84 From: Ruddy White MD Attending Dr: Status: DEP ER Ordering Dr: Dax Romero DO Date: 04/01/25 Location: ED Sex: M C Admitted: Test Reason : Blood Pressure : */* mmHG Vent. Rate : 70 BPM Atrial Rate : 70 BPM P-R Int : * ms QRS Dur : 116 ms QT Int : 494 ms P-R-T Axes : 88 161 63 degrees QTcB Int : 533 ms Ventricular-paced rhythm Biventricular pacemaker detected Abnormal ECG Confirmed by Ruddy White ([id number]), editorial intern HALLE VILLEGAS ([id number]) on 04/04/2025 1:09:22 PM Referred By: LUCILLE Confirmed By: Ruddy White 04/04/25 1309 Date Ruddy White MD CC: Dr. Rigoberto Durand MD; Dr. Dax Romero, DO Signed Normal [facility] Absolute lymphocyte countOrd ered By: Dax Romero on 04-01-2025 Lymphocytes Auto (Unsp spec) [#/Vol] 0.92 10*3/uL 0.83-4.51 [facility] Absolute neutrophil countOrd ered By: Dax Romero on 04-01-2025 Neutrophils (Bld) [#/Vol] 3.4 10*3/uL 2.0-7.7 [facility] Activated partial thrombopla stin time (aPTT) in platelet poor plasma by coagulation aOrdered By: Dax Romero on 04-01-2025 aPTT Coag (PPP) [Time] 47.0 s High 24.1-36.2 [facility] Anion gap in Serum or Plasma Ordered By: Dax Romero on 04-01-2025 Anion gap [Moles/Vol] 19 mmol/L High 5-15 [facility] Automated lymphocyte count a s percentage of total leukocytesOrdered By: Dax Romero on 04-01-2025 Lymphocytes/100 WBC Auto (Unsp spec) 18.1 % Low 19-41 [facility] BUN/creatinine ratioOrdered By: Dax Romero on 04-01-2025 Urea nitrogen/Creatinine [Mass ratio] 17.4 mg/mg 10-20 [facility] Basic Metabolic Profile (BMP )on 04-01-2025 BUN/CRE 17.4 RATIO Normal - [facility] Comment on above: Performed By: #### L 501.2450, L500.4050, L100.0100 #### [facility] Laboratory [address] [place], [address] Calcium [Mass/Vol] 9.2 mg/dL Normal 7.6-11.0 [facility] Comment on above: Performed By: #### L 501.2450, L500.4050, L100.0100 #### [facility] Laboratory [address] [place], [address] Chloride [Moles/Vol] 100 mmol/L Normal 98-108 [facility] Comment on above: Performed By: #### L 501.2450, L500.4050, L100.0100 #### [facility] Laboratory [address] [place], [address] CO2 [Moles/Vol] 19.7 mmol/L Low 21.0-32.0 [facility] Comment on above: Performed By: #### L 501.2450, L500.4050, L100.0100 #### [facility] Laboratory [address] [place], [address] Creatinine [Mass/Vol] 2.19 mg/dL High 0.70-1.20 [facility] Comment on above: Performed By: #### L 501.2450, L500.4050, L100.0100 #### [facility] Laboratory [address] [place], [address] ECRCL 26.27 ml/min Low 50-250 [facility] Comment on above: Performed By: #### L 501.2450, L500.4050, L100.0100 #### [facility] Laboratory [address] [place], [address] GAP 19 High 5-15 [facility] Comment on above: Performed By: #### L 501.2450, L500.4050, L100.0100 #### [facility] Laboratory [address] [place], [address] GFR/1.73 sq M.predicted among non-blacks MDRD (S/P/Bld) [Vol rate/Area] 29 mL/min/{1.73_m2} Low >60 [facility] Comment on above: Result Comment: mL/m in/1.73m2 CKD-EPI Creatinine Equation (2020) Performed By: #### L 501.2450, L500.4050, L100.0100 #### [facility] Laboratory [address] [place], [address] Glucose [Mass/Vol] 91 mg/dL Normal 70-99 [facility] Comment on above: Performed By: #### L 501.2450, L500.4050, L100.0100 #### [facility] Laboratory [address] [place], [address] Potassium [Moles/Vol] 3.9 mmol/L Normal 3.3-5.1 [facility] Comment on above: Result Comment: Hemo lysis present, Results??could be affected. ?? Performed By: #### L 501.2450, L500.4050, L100.0100 #### [facility] Laboratory [address] [place], [address] Sodium [Moles/Vol] 139 mmol/L Normal 133-145 [facility] Comment on above: Performed By: #### L 501.2450, L500.4050, L100.0100 #### [facility] Laboratory [address] [place], [address] Urea nitrogen [Mass/Vol] 38 mg/dL High 4-19 [facility] Comment on above: Performed By: #### L 501.2450, L500.4050, L100.0100 #### [facility] Laboratory [address] [place], [address] Basophil percentageOrdered B y: Dax Romero on 04-01-2025 Basophils/100 WBC (Bld) 2.0 % High 0-1 [facility] Bilirubin directOrdered By: Dax Romero on 04-01-2025 Bilirubin.direct [Mass/Vol] 1.42 mg/dL High 0.00-0.30 [facility] Comment on above: Hemolysis present, R esults could be affected. Bilirubin, totalOrdered By: Dax Romero on 04-01-2025 Bilirubin [Mass/Vol] 2.82 mg/dL High 0.00-1.30 [facility] Brain/Head without Contrasto n 04-01-2025 Brain/Head without Contrast [facility] Imaging Services [address] [place] [address] Brain/Head without Contrast MR#: [id number] Acct: [id number] Name: MEGAN NASCIMENTO Rep #: [id number] : 1940 M 84 From: Kartik de la rosa MD PCP: Dr. Rigoberto Durand MD Status: REG ER Study: Brain/Head without Contrast Date of Exam: 03/21 09/14 Exam# [id number] Ordering Dr: Dax Romero DO PROCEDURE: BRAIN/HEAD [...] CHRONIC CHANGES. NO ACUTE FINDINGS. Reading Location: [id number] CC: Dr. Rigoberto Durand MD; Dr. Dax Romero DO Stockroom Clerk: Signed Normal [facility] CBC W/Diff, Automatedon 03-21 Anisocytosis Ql (Bld) 1+ Normal [facility] Comment on above: Performed By: #### L 501.2450, L500.4050, L100.0100 #### [facility] Laboratory [address] [place], [address] PLT EST ADEQUATE Normal ADEQ [facility] Comment on above: Performed By: #### L 501.2450, L500.4050, L100.0100 #### [facility] Laboratory [address] [place], [address] CT Chest, Abd, Pel w/Contras ton 04-01-2025 CT Chest, Abd, Pel w/Contrast [facility] Imaging Services [address] [place] [address] CT Chest, Abd, Pel w/Contrast MR#: [id number] Acct: [id number] Name: MEGAN NASCIMENTO Rep #: [id number] : 1940 M 84 From: Kartik de la rosa MD PCP: Dr. Rigoberto Durand MD Status: REG ER Study: CT Chest, Abd, Pel w/Contrast Date of Exam: Exam# [id number] Ordering Dr: Dax Romero DO PROCEDURE: CT [...] of the liver. Sigmoid diverticulosis. Reading Location: [id number] CC: Dr. Rigoberto Durand MD; Dr. Dax Romero DO Stockroom Clerk: Signed Normal [facility] Carbon dioxide, total [Moles /volume] in Central venous bloodOrdered By: Dax Romero on 04-01-2025 CO2 [Moles/Vol] 19.7 mmol/L Low 21.0-32.0 [facility] Chloride assayOrdered By: Presley Romero on 04-01-2025 Chloride [Moles/Vol] 100 mmol/L 98-108 [facility] Emergency Department Summary on 04-01-2025 Emergency Department Summary [facility] Medical Records Department [address] [place] [address] Emergency Department Summary 04/01/25 MR#: [id number] Acct: [id number] Name: AZAMMEGAN VO Rep #: [id number] : 1940 84 From: Dax Romero DO [...] 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 He states that over the last month he has had approximately 4 falls and states that ever since he had been diagnosed with diverticulitis. He does live alone. [facility] Medical History Chronic pain of toe of [...] Unk nown History tablet,extended release 24 hr pcbrychsgsot-xdt-vdc ic acid-vit 1 tab PO DAILY not [...] PRN P (more content not included)... Normal [facility] Eosinophil percentageOrdered By: Dax Romero on 04-01-2025 Eosinophils/100 WBC (Bld) 2.4 % 0-5 [facility] Erythrocyte distribution wid th ratioOrdered By: Dax Romero on 04-01-2025 Erythrocyte distribution width (RBC) [Ratio] 20.3 % High 11.6-14.6 [facility] Erythrocyte distribution wid th standard deviationOrdered By: Dax Romero on 04-01-2025 Erythrocyte distribution width (RBC) [Ratio] 61.8 fl High 35.1-43.9 [facility] Glomerular filtration rate ( GFR) estimation/1.73 sq m using serum, plasma, or whole bOrdered By: Dax Romero on 04-01-2025 GFR/1.73 sq M.predicted among non-blacks MDRD (S/P/Bld) [Vol rate/Area] 29 mL/min/{1.73_m2} Low >60 [facility] Comment on above: mL/min/1.73m2 CKD-EP I Creatinine Equation (2020) Hematocrit Auto (Bld) [Volum e fraction]Ordered By: Dax Romero on 04-01-2025 Hematocrit (Bld) [Volume fraction] 49.1 % 40-54 [facility] Hemoglobin measurementOrdere d By: Dax Romero on 04-01-2025 Hemoglobin (Bld) [Mass/Vol] 16.3 g/dL 13.0-16.5 [facility] Immature granulocytes/100 WB C Auto (Bld)Ordered By: Dax Romero on 04-01-2025 Immature granulocytes/100 WBC (Bld) 0.800 % 0.0-0.9 [facility] Comment on above: IG% - Immature Granu locytes (promyelocytes, myelocytes and metamyelocytes) > 1% indicates that a LEFT SHIFT is Present. International normalized rat io (INR) calculationOrdered By: Dax Romero on 04-01-2025 INR Coag (Bld) [Relative time] 1.6 {INR} [facility] Laboratory - Chemistry and C hemistry - challengeOrdered By: Dax Romero on 04-01-2025 AST [Catalytic activity/Vol] 40 U/L High <38 [facility] Comment on above: Hemolysis present, R esults could be affected. Laboratory - Hematology and Cell countsOrdered By: Dax Romero on 04-01-2025 Anisocytosis Ql (Bld) 1+ [facility] Liver Profileon 04-01-2025 Albumin [Mass/Vol] 3.8 g/dL Normal 3.4-4.8 [facility] Comment on above: Performed By: #### L 501.2450, L500.4050, L100.0100 #### [facility] Laboratory [address] [place], [address] ALK PHOS 129 U/L Normal 40-129 [facility] Comment on above: Performed By: #### L 501.2450, L500.4050, L100.0100 #### [facility] [address] [place], [address] ALT [Catalytic activity/Vol] 12 U/L Normal <=46 [facility] Comment on above: Performed By: #### L 501.2450, L500.4050, L100.0100 #### [facility] [address] [place], [address] AST [Catalytic activity/Vol] 40 U/L High <=37 [facility] Comment on above: Result Comment: Hemo lysis present, Results??could be affected. ?? Performed By: #### L 501.2450, L500.4050, L100.0100 #### [facility] [address] [place], [address] Bilirubin [Mass/Vol] 2.82 mg/dL High 0.00-1.30 [facility] Comment on above: Performed By: #### L 501.2450, L500.4050, L100.0100 #### [facility] [address] [place], [address] Bilirubin.direct [Mass/Vol] 1.42 mg/dL High 0.00-0.30 [facility] Comment on above: Result Comment: Hemo lysis present, Results??could be affected. ?? Performed By: #### L 501.2450, L500.4050, L100.0100 #### [facility] [address] [place], [address] Globulin (S) [Mass/Vol] 3.0 g/dL Normal 2.2-4.2 [facility] Comment on above: Performed By: #### L 501.2450, L500.4050, L100.0100 #### [facility] [address] [place], [address] T PROT 6.9 g/dL Normal 5.9-8.4 [facility] Comment on above: Performed By: #### L 501.2450, L500.4050, L100.0100 #### [facility] [address] [place], [address] MCV (mean corpuscular volume ) determinationOrdered By: Dax Romero on 04-01-2025 MCV (RBC) [Entitic vol] 87.5 fL 80-94 [facility] Mean corpuscular hemoglobin (MCH) determinationOrdered By: Dax Romero on 04-01-2025 MCH (RBC) [Entitic mass] 29.1 pg 27.0-32.0 [facility] Mean corpuscular hemoglobin concentration (MCHC) determinationOrdered By: Dax Romero on 04-01-2025 MCHC (RBC) [Mass/Vol] 33.2 g/dL 32-36 [facility] Mean platelet volume determi nationOrdered By: Dax Romero on 04-01-2025 Platelet mean volume (Bld) [Entitic vol] 10.8 fL 6.2-12.0 [facility] Monocyte percentageOrdered B y: Dax Romero on 04-01-2025 Monocytes/100 WBC (Bld) 10.6 % High 0-10 [facility] Neutrophil percentageOrdered By: Dax Romero on 04-01-2025 Neutrophils/100 WBC (Bld) 66.1 % 47-70 [facility] Nucleated red blood cell per centageOrdered By: Dax Romero on 04-01-2025 Nucleated RBC/100 WBC (Bld) [Ratio] 0 % 0-5 [facility] Partial Thromboplast Timeon 04-01-2025 aPTT Coag (Bld) [Time] 47.0 s High 24.1-36.2 [facility] Comment on above: Performed By: #### L 501.080 #### [facility] [address] [place], [place] [address], [address] Platelet countOrdered By: Presley Romero on 04-01-2025 Platelets (Bld) [#/Vol] 203 10*3/uL 150-450 [facility] Platelet estimateOrdered By: Dax Romero on 04-01-2025 Platelets LM Ql (Bld) ADEQUATE ADEQ [facility] Potassium measurement (mass/ volume)Ordered By: Dax Romero on 04-01-2025 Potassium (Unsp spec) [Mass/Vol] 3.9 mmol/L 3.3-5.1 [facility] Comment on above: Hemolysis present, R esults could be affected. Prothrombin Time w/INRon INR Coag (PPP) [Relative time] 1.6 {INR} Normal [facility] Comment on above: Performed By: #### L 501.080 #### [facility] [address] [place], [address] PT Coag (PPP) [Time] 19.3 s High 11.7-14.9 [facility] Comment on above: Performed By: #### L 501.080 #### [facility] [address] [place], [address] INR Normal [facility] Comment on above: Result Comment: QNS, SPOKE WITH MARK Performed By: #### L 501.2450, L500.4050, L100.0100 #### [facility] [address] [place], [address] PROTIME Normal 11.7-14.9 [facility] Comment on above: Result Comment: QNS, SPOKE WITH MARK Performed By: #### L 501.2450, L500.4050, L100.0100 #### [facility] [address] [place], [address] Prothrombin timeOrdered By: Dax Romero on 04-01-2025 PT Coag (PPP) [Time] 19.3 s High 11.7-14.9 [facility] RBC Auto (Bld) [#/Vol]Ordere d By: Dax Romero on 04-01-2025 RBC (Bld) [#/Vol] 5.61 10*6/uL 4.6-6.[address] [facility] Serum creatinine measurement (mass/volume)Ordered By: Dax Romero on 04-01-2025 Creatinine [Mass/Vol] 2.19 mg/dL High 0.70-1.20 [facility] Serum globulin measurementOr dered By: Dax Romero on 04-01-2025 Globulin (S) [Mass/Vol] 3.0 g/dL 2.2-4.2 [facility] Serum glucose measurement (m ass/volume)Ordered By: Dax Romero on 04-01-2025 Glucose [Mass/Vol] 91 mg/dL 70-99 [facility] Serum or plasma alanine clay otransferase (ALT) measurementOrdered By: Dax Romero on 04-01-2025 ALT [Catalytic activity/Vol] 12 U/L <47 [facility] Serum or plasma albumin geena urement (mass/volume)Ordered By: Dax Romero on 04-01-2025 Albumin [Mass/Vol] 3.8 g/dL 3.4-4.8 [facility] Serum or plasma alkaline camila sphatase measurementOrdered By: Dax Romero on 04-01-2025 ALP [Catalytic activity/Vol] 129 U/L 40-129 [facility] Serum or plasma calcium geena urement (mass/volume)Ordered By: Dax Romero on 04-01-2025 Calcium [Mass/Vol] 9.2 mg/dL 7.6-11.0 [facility] Serum or plasma urea nitroge n measurement (mass/volume)Ordered By: Dax Romero on 04-01-2025 Urea nitrogen [Mass/Vol] 38 mg/dL High 4-19 [facility] Sodium levelOrdered By: Darrin Romero on 04-01-2025 Sodium [Moles/Vol] 139 mmol/L 133-145 [facility] Spine Cervical without Contr ason 04-01-2025 Spine Cervical without Contras [facility] [address] [place], [place] [address] Spine Cervical without Contras MR#: [id number] Acct: [id number] Name: MEGAN NASCIMENTO Rep #: [id number] : 1940 M 84 From: Kartik de la rosa MD PCP: Dr. Rigoberto Durand MD Status: REG ER Study: Spine Cervical without Contras Date of Exam: 0 04/01/25 Exam# [id number] Ordering Dr: Dax Romero DO PROCEDURE: SPINE [...] stenosis and facet joint osteoarthritis. Reading Location: [facility] CC: Dr. Rigoberto Durand MD; Dr. Dax Romero DO Stockroom Clerk: Signed Normal [facility] Total proteinOrdered By: Aye Romero on 04-01-2025 Protein [Mass/Vol] 6.9 g/dL 5.9-8.4 [facility] White blood cell (WBC) count Ordered By: Dax Romero on 04-01-2025 WBC (Bld) [#/Vol] 5.1 10*3/uL 4.4-11.0 [facility] Progress Noteon 03-16-2025 Progress Note Chart reviewed. Attempted to contact patient for transitional follow up. No answer. Unable to leave a , as box is full. Patient's 30 day transitional period ends tomorrow. Will plan for transitional program closure tomorrow (03/17). [facility] 36on 03-15-2025 36 Noted. In reviewing pts dispense report. He is filling medication through [facility] retail pharmacy. With current dosing of 20 mg BID. [facility] 36 It is per pt's preference if Demadex taken a total of 40 mg once daily, vs 20 mg twice daily. [facility] 36on 03-11-2025 36 Name of caller: Yanna Contact phone number: [phone] Relationship to Patient: [facility] Provider: Petra Renteria Practice: [facility] Chief Complaint/Reason for Call: Delroy is calling [...] should have some medication left. Please advise [facility] 36on 03-04-2025 36 ----- Message from CHLOE [...] to call Megan. His phone went to [email or web address]. The Mailbox is full. Will try again [...] an appointment with his PCP on 03/10/25. [facility] Progress Noteon 03-04-2025 Progress Note Pt has continued renal insuffiencey in the setting of severe LV dysfunction. I would recommend he continue his present diuretics, including Demadex 40 mg daily. Please ask he have a repeat BMP in 1 week to document stability. Normal [facility] Office Visiton 03-03-2025 Follow-up visit [id number] Megan Nascimento 1940 M Date Provider Department Center 03/03/2025 [id number] RENTERIA SH[facility] VARUN [facility] CV Susan Family History Problem Relation Age of Onset High Blood Pressure Father High Blood Pressure Mother Family Status - Relation Status Age at Father Mother Level of Service:09986 NC OFFICE/OUTPATIENT ESTABLISHED MOD MDM 30 MIN Reason for Visit and Comments: Hospital Follow-up [832] Normal [facility] Progress Noteon 03-03-2025 Progress Note [facility] Cardiology Office Note DATE of SERVICE: 03/03/25 [...] defibrillator placement. He was recently admitted to [facility] 01/28/2025-02/01/2025 and treated for heart failure [...] is 1 (more content not included)... Normal [facility] Progress Noteon 03-02-2025 Progress Note 03/02/25 1204 [...] patient. Re-introduced myself and my role on [facility]'s transitional team. He reports that the [...] was thrown off this morning since the [facility] nurse was out. He denies any swelling [...] legs looking? Any s/s of cellulitis?). Normal [facility] Progress Noteon 02-24-2025 Progress Note Chart reviewed. Noted that patient is now scheduled to see cardiology (Everton Renteria CNP) on 03/03. Attempted to contact patient for transitional follow up. No answer. Left VM requesting a return call back. Future transitional outreach scheduled. [facility] [id number] 02-22-2025 [id number] Patient Choice Patient Name: MEGAN NASCIMENTO Date of : 1940 [facility] Progress Noteon 02-17-2025 Progress Note 02/17/25 1332 Transitions Post-Discharge Call - Initial Reviewed patients discharge instructions? 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 Yes Medication reconciliation complete? Partially [...] HHC ordered? Yes If yes, which agency? [facility] [place] Was [facility] initiated if ordered? Yes (Patient reports that [...] that his PCP was listed incorrectly in [employer]. PCP updated in [employer]. Patient reports that he sees Dr. Bourne. [...] scheduled (Did he see/schedule with cardiology/PCP?). Normal [facility] BASIC METABOLIC PANELon 07-2 Anion gap [Moles/Vol] 12 mmol/L Normal 3-13 [facility] Comment on above: Performed By: #### L AB15 ####Diving Supervisor: DIGNA MORALES ([phone])[facility] ([facility])[address] Calcium [Mass/Vol] 8.8 mg/dL Normal 8.8-10.0 [facility] Comment on above: Performed By: #### L AB15 ####Diving Supervisor: DIGNA MORALES ([phone])[facility] ([facility])[address] Chloride [Moles/Vol] 107 mmol/L Normal 98-107 [facility] Comment on above: Performed By: #### L AB15 ####Diving Supervisor: DIGNA MORALES ([phone])[facility] ([facility])[address] [place] [address] [place] CO2 [Moles/Vol] 22 mmol/L Low 23-31 [facility] Comment on above: Performed By: #### L AB15 ####Diving Supervisor: DIGNA MORALES ([phone])[facility]ENTERCarl[facility]ISBAN[facility] ([facility])[address] Creatinine [Mass/Vol] 1.94 mg/dL High 0.72-1.25 [facility] Comment on above: Performed By: #### L AB15 ####Diving Supervisor: DIGNA MORALES ([phone])[facility] ([facility])[address] [place] [address] [place] GLOMERULAR FILTRATION RATE ML/MIN/1.73 SQ M.PREDICTED 33.3 mL/min/1.73m*2 Low >60.0 [facility] Comment on above: Result Comment: Calc ulation based on the Chronic Kidney Disease Epidemiology Collaboration (CKD-EPI) equation refit without adjustment for race Performed By: #### L AB15 ####Diving Supervisor: DIGNA MORALES ([phone])[facility] ([facility])[address] Glucose [Mass/Vol] 101 mg/dL Normal 82-115 [facility] Comment on above: Performed By: #### L AB15 ####Diving Supervisor: DIGNA MORALES ([phone])[facility] ([facility])[address] [place] [address] [place] Potassium [Moles/Vol] 3.5 mmol/L Normal 3.5-5.1 [facility] Comment on above: Result Comment: [facility] potassium values may be up to 0.5 mmol/L lower than serum values. Performed By: #### L AB15 ####Diving Supervisor: DIGNA MORALES ([phone])[facility] ([facility])[address] Sodium [Moles/Vol] 141 mmol/L Normal 136-145 [facility] Comment on above: Performed By: #### L AB15 ####Diving Supervisor: DIGNA MORALES ([phone])[facility] ([facility])[address] Urea nitrogen [Mass/Vol] 24 mg/dL High 9-23 [facility] Comment on above: Performed By: #### L AB15 ####Diving Supervisor: DIGNA MORALES ([phone])[facility] ([facility])[address] Basic metabolic 1998 panelon 02-15-2025 Anion gap [Moles/Vol] 12 mmol/L 3 - 13 mmol/L [facility] Calcium [Mass/Vol] 8.8 mg/dL 8.8 - 10. 0 mg/dL [facility] Chloride [Moles/Vol] 107 mmol/L 98 - 10 7 mmol/L [facility] CO2 [Moles/Vol] 22 mmol/L Low 23 - 31 mmol/L [facility] Creatinine [Mass/Vol] 1.94 mg/dL High 0.72 - 1.25 mg/dL [facility] GFR/1.73 sq M.predicted (S/P/Bld) [Vol rate/Area] 33.3 mL/min Low - PINF [facility] Comment on above: Calculation based on the Chronic Kidney Disease Epidemiology Collaboration (CKD-EPI) equation refit without adjustment for race Glucose [Mass/Vol] 101 mg/dL 82 - 115 mg/dL [facility] Interpretation and review of laboratory results Abnormal [facility] Potassium [Moles/Vol] 3.5 mmol/L 3.5 - 5.1 mmol/L [facility] Comment on above: Plasma potassium erika ues may be up to 0.5 mmol/L lower than serum values. Sodium [Moles/Vol] 141 mmol/L 136 - 145 mmol/L [facility] Urea nitrogen [Mass/Vol] 24 mg/dL High 9 - 23 mg/d L [facility] CBC (HEMOGRAM)on 02-15-2025 Erythrocyte distribution width (RBC) [Ratio] 19.1 % High 11.5-15.0 [facility] Comment on above: Performed By: #### L AB294 ####Diving Supervisor: DIGNA MORALES ([phone])[facility] ([facility])[address] Hematocrit (Bld) [Volume fraction] 45.9 % Normal 40.0-52.0 [facility] Comment on above: Performed By: #### L AB294 ####Diving Supervisor: DIGNA MORALES ([phone])[facility]ILLAIAaron ([facility])[address] Hemoglobin (Bld) [Mass/Vol] 15.2 g/dL Normal 13.0-18.0 [facility] Comment on above: Performed By: #### L AB294 ####Diving Supervisor: DIGNA MORALES ([phone])[facility]ENTERCarlos DAVISKENDALL ([facility])[address] MCH (RBC) [Entitic mass] 28.7 pg Normal 26.0-34.0 [facility] Comment on above: Performed By: #### L AB294 ####Diving Supervisor: DIGNA MORALES ([phone])[facility]ENTERCarlos PILLAIAaron ([facility])[address] MCHC 33.1 % Normal 30.5-36.0 [facility] Comment on above: Performed By: #### L AB294 ####Diving Supervisor: DIGNA MORALES ([phone])T[facility]U DAVISKENDALL ([facility])[address] MCV (RBC) [Entitic vol] 86.8 fL Normal 77.0-99.0 [facility] Comment on above: Performed By: #### L AB294 ####Diving Supervisor: DIGNA MORALES ([phone])[facility]ENTERCarl[facility] DAVISKENDALL ([facility])[address] Platelet mean volume (Bld) [Entitic vol] 11.0 fL Normal 9.0-12.7 [facility] Comment on above: Performed By: #### L AB294 ####Diving Supervisor: DIGNA MORALES ([phone])[facility] [place] ([facility])[address] Platelets (Bld) [#/Vol] 205 10*3/uL Normal 140-440 [facility] Comment on above: Performed By: #### L AB294 ####Diving Supervisor: DIGNA MORALES ([phone])[facility]ENTERCarl[facility] ROMEO ([facility])[address] RBC (Bld) [#/Vol] 5.29 10*6/uL Normal 4.40-5.90 [facility] Comment on above: Performed By: #### L AB294 ####Diving Supervisor: DIGNA MORALES ([phone])[facility]ENTERCarl[facility] ROMEO ([facility])[address] [place] [address] WBC (Bld) [#/Vol] 4.0 10*3/uL Normal 3.6-10.7 [facility] Comment on above: Performed By: #### L AB294 ####Diving Supervisor: DIGNA MORALES ([phone])[facility]ENTERCarl[facility] ROMEO ([facility])[address] [place] [address] CBC panel Auto (Bld)on 02-15 Erythrocyte distribution width (RBC) [Ratio] 19.1 % High 11.5 - 15.0 % [facility] Hematocrit (Bld) [Volume fraction] 45.9 % 40.0 - 52.0 % [facility] Hemoglobin (Bld) [Mass/Vol] 15.2 g/dL 13.0 - 18.0 g/dL [facility] Interpretation and review of laboratory results Abnormal [facility] MCH (RBC) [Entitic mass] 28.7 pg 26. 0 - 34.0 pg [facility] MCHC (RBC) [Mass/Vol] 33.1 % 30.5 - 36.0 % [facility] MCV (RBC) [Entitic vol] 86.8 fL 77.0 - 99.0 fL [facility] Platelet mean volume (Bld) [Entitic vol] 11 fL 9.0 - 12.7 fL [facility] Platelets (Bld) [#/Vol] 205 10*3/uL 140 - 440 10*3/uL [facility] RBC (Bld) [#/Vol] 5.29 10*6/uL 4.40 - 5.9 0 10*6/uL [facility] WBC (Bld) [#/Vol] 4 10*3/uL 3.6 - 10.7 10*3/uL [facility] Laboratory - Chemistry and C hemistry - challengeon 02-15-2025 Glucose [Mass/Vol] 118 mg/dL High 70 - 100 mg/dL [facility] Glucose [Mass/Vol] 89 mg/dL 70 - 100 mg/dL [facility] Glucose [Mass/Vol] 69 mg/dL Low 70 - 100 mg/dL [facility] No Panel Informationon 02-15 Interpretation and review of laboratory results Abnormal [facility] Performed by: [facility] Rome[facility] [address] [place] [address] CLIA ID: [id number] [facility] Interpretation and review of laboratory results Normal [facility] Performed by: [facility] Romeo [address] [place] [address] CLIA ID: [id number] [facility] Interpretation and review of laboratory results Abnormal [facility] Performed by: [facility] Romeo, [address] [place] [address] CLIA ID: [id number] [facility] Nursing Noteon 02-15-2025 Nursing Note Pt ok to discharge home per , juan alberto wnrussell. Pt understood discharge instructions. Son to transport pt home. IV removed prior to pt leaving hospital. Pt received meds to bed. [facility] [id number] 02-14-2025 [id number] SRIRAM met with pt at [facility] to complete the 30 day Readmission questionnaire. SW asked for pt's consent and pt agreed. Pt was cooperative and answered all questions. SW will email questionnaire at the end of the week to [email or web address] [facility] BASIC METABOLIC PANELon 01-19 Anion gap [Moles/Vol] 13 mmol/L Normal 3-13 [facility] Comment on above: Performed By: #### L AB15 ####Diving Supervisor: DIGNA MORALES ([phone])[facility]ENTERCarlos BARBHARSHN ([facility])[address] Calcium [Mass/Vol] 8.9 mg/dL Normal 8.8-10.0 [facility] Comment on above: Performed By: #### L AB15 ####Diving Supervisor: DIGNA MORALES ([phone])[facility] [place] ([facility])[address] Chloride [Moles/Vol] 107 mmol/L Normal 98-107 [facility] Comment on above: Performed By: #### L AB15 ####Diving Supervisor: DIGNA MORALES ([phone])[facility] [place] ([facility])[address] CO2 [Moles/Vol] 21 mmol/L Low 23-31 [facility] Comment on above: Performed By: #### L AB15 ####Diving Supervisor: DIGNA MORALES ([phone])[facility] [place] ([facility])[address] Creatinine [Mass/Vol] 1.77 mg/dL High 0.72-1.25 [facility] Comment on above: Performed By: #### L AB15 ####Diving Supervisor: DIGNA MORALES ([phone])[facility]A BARBHARSHN ([facility])[address] [place] [address] [place] GLOMERULAR FILTRATION RATE ML/MIN/1.73 SQ M.PREDICTED 37.2 mL/min/1.73m*2 Low >60.0 [facility] Comment on above: Result Comment: Calc ulation based on the Chronic Kidney Disease Epidemiology Collaboration (CKD-EPI) equation refit without adjustment for race Performed By: #### L AB15 ####Diving Supervisor: DIGNA MORALES ([phone])[facility] [place] ([facility])[address] [place] [address] [place] Glucose [Mass/Vol] 96 mg/dL Normal 82-115 [facility] Comment on above: Performed By: #### L AB15 ####Diving Supervisor: DIGNA TAPIACER ([phone])[facility] ([facility])[address] Potassium [Moles/Vol] 3.5 mmol/L Normal 3.5-5.1 [facility] Comment on above: Result Comment: [facility] potassium values may be up to 0.5 mmol/L lower than serum values. Performed By: #### L AB15 ####Diving Supervisor: DIGNA MORALES ([phone])[facility]BL[facility]ACE [facility] HOSPITALN ([facility])[address] Sodium [Moles/Vol] 141 mmol/L Normal 136-145 [facility] Comment on above: Performed By: #### L AB15 ####Diving Supervisor: DIGNA MORALES ([phone])[facility] ([facility])[address] [place] [address] Urea nitrogen [Mass/Vol] 22 mg/dL Normal 9-23 [facility] Comment on above: Performed By: #### L AB15 ####Diving Supervisor: DIGNA MORALES ([phone])[facility] ([facility])[address] [place] [address] Basic metabolic 1998 panelon 02-14-2025 Anion gap [Moles/Vol] 13 mmol/L 3 - 13 mmol/L [facility] Calcium [Mass/Vol] 8.9 mg/dL 8.8 - 10. 0 mg/dL [facility] Chloride [Moles/Vol] 107 mmol/L 98 - 10 7 mmol/L [facility] CO2 [Moles/Vol] 21 mmol/L Low 23 - 31 mmol/L [facility] Creatinine [Mass/Vol] 1.77 mg/dL High 0.72 - 1.25 mg/dL [facility] GFR/1.73 sq M.predicted (S/P/Bld) [Vol rate/Area] 37.2 mL/min Low - PINF [facility] Comment on above: Calculation based on the Chronic Kidney Disease Epidemiology Collaboration (CKD-EPI) equation refit without adjustment for race Glucose [Mass/Vol] 96 mg/dL 82 - 115 mg/dL [facility] Interpretation and review of laboratory results Abnormal [facility] Potassium [Moles/Vol] 3.5 mmol/L 3.5 - 5.1 mmol/L [facility] Comment on above: Plasma potassium erika ues may be up to 0.5 mmol/L lower than serum values. Sodium [Moles/Vol] 141 mmol/L 136 - 145 mmol/L [facility] Urea nitrogen [Mass/Vol] 22 mg/dL 9 - 23 mg/d L [facility] CBC (HEMOGRAM)on 02-14-2025 Erythrocyte distribution width (RBC) [Ratio] 19.2 % High 11.5-15.0 [facility] Comment on above: Performed By: #### L [id number] ####Diving Supervisor: DIGNA MORALES ([phone])[facility] ([facility])[address] [place] [address] Hematocrit (Bld) [Volume fraction] 46.2 % Normal 40.0-52.0 [facility] Comment on above: Performed By: #### L [id number] ####Diving Supervisor: DIGNA MORALES ([phone])[facility] ([facility])[address] [place] [address] Hemoglobin (Bld) [Mass/Vol] 15.3 g/dL Normal 13.0-18.0 [facility] Comment on above: Performed By: #### L [id number] ####Diving Supervisor: DIGNA MORALES ([phone])[facility] ([facility])[address] [place] [address] MCH (RBC) [Entitic mass] 28.5 pg Normal 26.0-34.0 [facility] Comment on above: Performed By: #### L [id number] ####Diving Supervisor: DIGNA MORALES ([phone])[facility] ([facility])[address] [place] [address] MCHC 33.1 % Normal 30.5-36.0 [facility] Comment on above: Performed By: #### L [id number] ####Diving Supervisor: DIGNA TAPIACER ([phone])[facility] [place] ([facility])[address] MCV (RBC) [Entitic vol] 86.2 fL Normal 77.0-99.0 [facility] Comment on above: Performed By: #### L [id number] ####Diving Supervisor: DIGNA CARMEN ([phone])[facility] ([facility])[address] Platelet mean volume (Bld) [Entitic vol] 10.9 fL Normal 9.0-12.7 [facility] Comment on above: Performed By: #### L [id number] ####Diving Supervisor: DIGNA ARANAILYA ([phone])[facility]Carl[facility]LOVELACE [facility]N ([facility])[address] Platelets (Bld) [#/Vol] 209 10*3/uL Normal 140-440 [facility] Comment on above: Performed By: #### L [id number] ####Diving Supervisor: DIGNA ROJASREX ([phone])[facility] ([facility])[address] RBC (Bld) [#/Vol] 5.36 10*6/uL Normal 4.40-5.90 [facility] Comment on above: Performed By: #### L [id number] ####Diving Supervisor: DIGNA MORALES ([phone])[facility] ([facility])[address] WBC (Bld) [#/Vol] 4.5 10*3/uL Normal 3.6-10.7 [facility] Comment on above: Performed By: #### L AB294 ####Diving Supervisor: DIGNA MORALES ([phone])[facility] ([facility])[address] CBC panel Auto (Bld)on 02-14 Erythrocyte distribution width (RBC) [Ratio] 19.2 % High 11.5 - 15.0 % [facility] Hematocrit (Bld) [Volume fraction] 46.2 % 40.0 - 52.0 % [facility] Hemoglobin (Bld) [Mass/Vol] 15.3 g/dL 13.0 - 18.0 g/dL [facility] Interpretation and review of laboratory results Abnormal [facility] MCH (RBC) [Entitic mass] 28.5 pg 26. 0 - 34.0 pg [facility] MCHC (RBC) [Mass/Vol] 33.1 % 30.5 - 36.0 % [facility] MCV (RBC) [Entitic vol] 86.2 fL 77.0 - 99.0 fL [facility] Platelet mean volume (Bld) [Entitic vol] 10.9 fL 9.0 - 12.7 fL [facility] Platelets (Bld) [#/Vol] 209 10*3/uL 140 - 440 10*3/uL [facility] RBC (Bld) [#/Vol] 5.36 10*6/uL 4.40 - 5.9 0 10*6/uL [facility] WBC (Bld) [#/Vol] 4.5 10*3/uL 3.6 - 10.7 10*3/uL [facility] Laboratory - Chemistry and C hemistry - challengeon 02-14-2025 Glucose [Mass/Vol] 103 mg/dL High 70 - 100 mg/dL [facility] Glucose [Mass/Vol] 85 mg/dL 70 - 100 mg/dL [facility] Glucose [Mass/Vol] 94 mg/dL 70 - 100 mg/dL [facility] Glucose [Mass/Vol] 83 mg/dL 70 - 100 mg/dL [facility] No Panel Informationon 02-14 Interpretation and review of laboratory results Abnormal [facility] Performed by: Jacques Lin [facility], [facility] [address] CLIA ID: [id number] [facility] Interpretation and review of laboratory results Normal [facility] Performed by: Jacques Lin [facility], [facility] [address] CLIA ID: [id number] [facility] Interpretation and review of laboratory results Normal [facility] Performed by: Jacques Lin [facility], [facility] [address] CLIA ID: [id number] [facility] Interpretation and review of laboratory results Normal [facility] Performed by: [facility] [place]Atl[place], [address] [address] CLIA ID: [id number] [facility] Nursing Noteon 02-14-2025 Nursing Note Wound Care consulted for Pressure Injury Prevention. Pt's Simon score= 18 on 02/14 Pt's pressure points assessed. Pt turned independently in the bed for posterior assessment. Pt's Heels, Buttocks/coccyx, Back, Elbows, Occiput and ears all intact. [place] and blanchable tissues noted to coccyx. Instructed [...] questions or concerns. Lavonne Grace RN Normal [facility] BASIC METABOLIC PANELon 01-19 Anion gap [Moles/Vol] 14 mmol/L High 3-13 [facility] Comment on above: Performed By: #### L AB15 ####Diving Supervisor: DIGNA MORALES ([phone])[facility] ([facility])[address] Calcium [Mass/Vol] 8.8 mg/dL Normal 8.8-10.0 [facility] Comment on above: Performed By: #### L AB15 ####Diving Supervisor: DIGNA MORALES ([phone])[facility] ([facility])[address] Chloride [Moles/Vol] 107 mmol/L Normal 98-107 [facility] Comment on above: Performed By: #### L AB15 ####Diving Supervisor: DIGNA MORALES ([phone])[facility] [place] ([facility])[address] CO2 [Moles/Vol] 21 mmol/L Low 23-31 [facility] Comment on above: Performed By: #### L AB15 ####Diving Supervisor: DIGNA MORALES ([phone])[facility]A [facility]N ([facility])[address] Creatinine [Mass/Vol] 1.85 mg/dL High 0.72-1.25 [facility] Comment on above: Performed By: #### L AB15 ####Diving Supervisor: DIGNA MORALES ([phone])[facility]A [facility]N ([facility])[address] GLOMERULAR FILTRATION RATE ML/MIN/1.73 SQ M.PREDICTED 35.3 mL/min/1.73m*2 Low >60.0 [facility] Comment on above: Result Comment: Calc ulation based on the Chronic Kidney Disease Epidemiology Collaboration (CKD-EPI) equation refit without adjustment for race Performed By: #### L AB15 ####Diving Supervisor: DIGNA MORALES ([phone])[facility] ([facility])[address] Glucose [Mass/Vol] 84 mg/dL Normal 82-115 [facility] Comment on above: Performed By: #### L AB15 ####Diving Supervisor: DIGNA MORALES ([phone])[facility]A [facility] ([facility])[address] Potassium [Moles/Vol] 3.8 mmol/L Normal 3.5-5.1 [facility] Comment on above: Result Comment: [facility] potassium values may be up to 0.5 mmol/L lower than serum values. Performed By: #### L AB15 ####Diving Supervisor: DIGNA MORALES ([phone])[facility]A [facility] ([facility])[address] Sodium [Moles/Vol] 142 mmol/L Normal 136-145 [facility] Comment on above: Performed By: #### L AB15 ####Diving Supervisor: DIGNAVIRI ARANANicholasREX ([phone])[facility] ([facility])[address] Urea nitrogen [Mass/Vol] 21 mg/dL Normal 9-23 [facility] Comment on above: Performed By: #### L AB15 ####Diving Supervisor: DIGNA CARMEN ([phone])[facility] ([facility])[address] Basic metabolic 1998 panelOr dered By: Shaun Topete on 02-13-2025 Anion gap [Moles/Vol] 14 mmol/L High 3 - 13 mmol/L [facility] Calcium [Mass/Vol] 8.8 mg/dL 8.8 - 10. 0 mg/dL [facility] Chloride [Moles/Vol] 107 mmol/L 98 - 10 7 mmol/L [facility] CO2 [Moles/Vol] 21 mmol/L Low 23 - 31 mmol/L [facility] Creatinine [Mass/Vol] 1.85 mg/dL High 0.72 - 1.25 mg/dL [facility] GFR/1.73 sq M.predicted (S/P/Bld) [Vol rate/Area] 35.3 mL/min Low - PINF [facility] Comment on above: Calculation based on the Chronic Kidney Disease Epidemiology Collaboration (CKD-EPI) equation refit without adjustment for race Glucose [Mass/Vol] 84 mg/dL 82 - 115 mg/dL [facility] Interpretation and review of laboratory results Abnormal [facility] Potassium [Moles/Vol] 3.8 mmol/L 3.5 - 5.1 mmol/L [facility] Comment on above: Plasma potassium erika ues may be up to 0.5 mmol/L lower than serum values. Sodium [Moles/Vol] 142 mmol/L 136 - 145 mmol/L [facility] Urea nitrogen [Mass/Vol] 21 mg/dL 9 - 23 mg/d L [facility] CBC (HEMOGRAM)on 02-13-2025 Erythrocyte distribution width (RBC) [Ratio] 19.2 % High 11.5-15.0 [facility] Comment on above: Performed By: #### L [id number] ####Diving Supervisor: DIGNA MORALES ([phone])[facility]ENTERCarlos DAVISLOVELACE WOMEN'S HOSPITALAaron ([facility])[address] [place] [address] Hematocrit (Bld) [Volume fraction] 48.4 % Normal 40.0-52.0 [facility] Comment on above: Performed By: #### L AB294 ####Diving Supervisor: DIGNA MORALES ([phone])[facility] ([facility])[address] [place] [address] Hemoglobin (Bld) [Mass/Vol] 15.6 g/dL Normal 13.0-18.0 [facility] Comment on above: Performed By: #### L AB294 ####Diving Supervisor: DIGNA ROJASREX ([phone])[facility] ([facility])[address] [place] [address] MCH (RBC) [Entitic mass] 28.3 pg Normal 26.0-34.0 [facility] Comment on above: Performed By: #### L AB294 ####Diving Supervisor: DIGNA MORALES ([phone])[facility]ENTERCarlos [place] ([facility])[address] [place] [address] MCHC 32.2 % Normal 30.5-36.0 [facility] Comment on above: Performed By: #### L AB294 ####Diving Supervisor: DIGNA MORALES ([phone])[facility] ([facility])[address] [place] [address] MCV (RBC) [Entitic vol] 87.7 fL Normal 77.0-99.0 [facility] Comment on above: Performed By: #### L AB294 ####Diving Supervisor: DIGNA MORALES ([phone])[facility] ([facility])[address] [place] [address] Platelet mean volume (Bld) [Entitic vol] 10.8 fL Normal 9.0-12.7 [facility] Comment on above: Performed By: #### L AB294 ####Diving Supervisor: DIGNA MORALES ([phone])[facility]ENTERCarlos DAVISLOVELACE WOM[facility] HOSPITALAaron ([facility])[address] Platelets (Bld) [#/Vol] 224 10*3/uL Normal 140-440 [facility] Comment on above: Performed By: #### L AB294 ####Diving Supervisor: DIGNA MORALES ([phone])[facility]ENTERCarlos [facility]BAN[facility] ([facility])[address] RBC (Bld) [#/Vol] 5.52 10*6/uL Normal 4.40-5.90 [facility] Comment on above: Performed By: #### L [id number] ####Diving Supervisor: DIGNA MORALES ([phone])[facility] ([facility])[address] WBC (Bld) [#/Vol] 4.4 10*3/uL Normal 3.6-10.7 [facility] Comment on above: Performed By: #### L [id number] ####Diving Supervisor: DIGNA MORALES ([phone])[facility] ([facility])[address] CBC panel Auto (Bld)on 02-13 Erythrocyte distribution width (RBC) [Ratio] 19.2 % High 11.5 - 15.0 % [facility] Hematocrit (Bld) [Volume fraction] 48.4 % 40.0 - 52.0 % [facility] Hemoglobin (Bld) [Mass/Vol] 15.6 g/dL 13.0 - 18.0 g/dL [facility] Interpretation and review of laboratory results Abnormal [facility] MCH (RBC) [Entitic mass] 28.3 pg 26. 0 - 34.0 pg [facility] MCHC (RBC) [Mass/Vol] 32.2 % 30.5 - 36.0 % [facility] MCV (RBC) [Entitic vol] 87.7 fL 77.0 - 99.0 fL [facility] Platelet mean volume (Bld) [Entitic vol] 10.8 fL 9.0 - 12.7 fL [facility] Platelets (Bld) [#/Vol] 224 10*3/uL 140 - 440 10*3/uL [facility] RBC (Bld) [#/Vol] 5.52 10*6/uL 4.40 - 5.9 0 10*6/uL [facility] WBC (Bld) [#/Vol] 4.4 10*3/uL 3.6 - 10.7 10*3/uL [facility] Laboratory - Chemistry and C hemistry - challengeon 02-13-2025 Glucose [Mass/Vol] 100 mg/dL 70 - 100 mg/dL [facility] Glucose [Mass/Vol] 112 mg/dL High 70 - 100 mg/dL [facility] Glucose [Mass/Vol] 133 mg/dL High 70 - 100 mg/dL [facility] Glucose [Mass/Vol] 85 mg/dL 70 - 100 mg/dL [facility] No Panel Informationon 02-13 Interpretation and review of laboratory results Normal [facility] Performed by: Tutu Romeo [address] [place] [address] CLIA ID: [id number] [facility] Interpretation and review of laboratory results Abnormal [facility] Performed by: Tutu Romeo [address] [place] [address] CLIA ID: [id number] [facility] Interpretation and review of laboratory results Abnormal [facility] Performed by: Tutu Romeo [address] [place] [address] CLIA ID: [id number] [facility] Interpretation and review of laboratory results Normal [facility] Performed by: Tutu Romeo [address] [place] [address] CLIA ID: [id number] [facility] BASIC METABOLIC PANELon 01-19 Anion gap [Moles/Vol] 14 mmol/L High 3-13 [facility] Comment on above: Performed By: #### L AB15, [id number] ####Diving Supervisor: DIGNA MORALES ([phone])[facility] ([facility])[address] [place] [address] Calcium [Mass/Vol] 8.4 mg/dL Low 8.8-10.0 [facility] Comment on above: Performed By: #### L AB15, [id number] ####Diving Supervisor: DIGNA MORALES ([phone])[facility] (HLAB)[address] Chloride [Moles/Vol] 106 mmol/L Normal 98-107 [facility] Comment on above: Performed By: #### L AB15, [id number] ####Diving Supervisor: DIGNA MORALES ([phone])[facility] ([facility])[address] CO2 [Moles/Vol] 21 mmol/L Low 23-31 [facility] Comment on above: Performed By: #### L AB15, [id number] ####Diving Supervisor: DIGNA MORALES ([phone])[facility] ([facility])[address] Creatinine [Mass/Vol] 1.73 mg/dL High 0.72-1.25 [facility] Comment on above: Performed By: #### L AB15, [id number] ####Diving Supervisor: DIGNA MORALES ([phone])[facility] ([facility])[address] [place] [address] [place] GLOMERULAR FILTRATION RATE ML/MIN/1.73 SQ M.PREDICTED 38.2 mL/min/1.73m*2 Low >60.0 [facility] Comment on above: Result Comment: Calc ulation based on the Chronic Kidney Disease Epidemiology Collaboration (CKD-EPI) equation refit without adjustment for race Performed By: #### L AB15, [id number] ####Diving Supervisor: DIGNA MORALES ([phone])[facility] ([facility])[address] [place] [address] [place] Glucose [Mass/Vol] 82 mg/dL Normal 82-115 [facility] Comment on above: Performed By: #### L AB15, [id number] ####Diving Supervisor: DIGNA MORALES ([phone])[facility] [place] ([facility])[address] Potassium [Moles/Vol] 2.8 mmol/L Low 3.5-5.1 [facility] Comment on above: Result Comment: [facility] potassium values may be up to 0.5 mmol/L lower than serum values. Performed By: #### L AB15, [id number] ####Diving Supervisor: DIGNA MORALES ([phone])[facility]ENTERCarlos [facility]N ([facility])[address] Sodium [Moles/Vol] 141 mmol/L Normal 136-145 [facility] Comment on above: Performed By: #### L AB15, [id number] ####Diving Supervisor: DIGNA MORALES ([phone])[facility]ENTERCarlos DAV[facility]LOVELACE [facility]OS[facility]ITALN ([facility])[address] Urea nitrogen [Mass/Vol] 22 mg/dL Normal 9-23 [facility] Comment on above: Performed By: #### L AB15, [id number] ####Diving Supervisor: DIGNA MORALES ([phone])[facility] ([facility])[address] Basic metabolic 1998 panelOr dered By: Jamila Acosta on 02-12-2025 Anion gap [Moles/Vol] 14 mmol/L High 3 - 13 mmol/L [facility] Calcium [Mass/Vol] 8.4 mg/dL Low 8.8 - 10. 0 mg/dL [facility] Chloride [Moles/Vol] 106 mmol/L 98 - 10 7 mmol/L [facility] CO2 [Moles/Vol] 21 mmol/L Low 23 - 31 mmol/L [facility] Creatinine [Mass/Vol] 1.73 mg/dL High 0.72 - 1.25 mg/dL [facility] GFR/1.73 sq M.predicted (S/P/Bld) [Vol rate/Area] 38.2 mL/min Low - PINF [facility] Comment on above: Calculation based on the Chronic Kidney Disease Epidemiology Collaboration (CKD-EPI) equation refit without adjustment for race Glucose [Mass/Vol] 82 mg/dL 82 - 115 mg/dL [facility] Interpretation and review of laboratory results Abnormal [facility] Potassium [Moles/Vol] 2.8 mmol/L Low 3.5 - 5.1 mmol/L [facility] Comment on above: Plasma potassium erika ues may be up to 0.5 mmol/L lower than serum values. Sodium [Moles/Vol] 141 mmol/L 136 - 145 mmol/L [facility] Urea nitrogen [Mass/Vol] 22 mg/dL 9 - 23 mg/d L [facility] CBC (HEMOGRAM)on 02-12-2025 Erythrocyte distribution width (RBC) [Ratio] 18.5 % High 11.5-15.0 [facility] Comment on above: Performed By: #### L [id number] ####Diving Supervisor: DIGNA MORALES ([phone])[facility] ([facility])[address] [place] [address] Hematocrit (Bld) [Volume fraction] 44.7 % Normal 40.0-52.0 [facility] Comment on above: Performed By: #### L AB294 ####Diving Supervisor: DIGNA MORALES ([phone])[facility] ([facility])[address] [place] [address] Hemoglobin (Bld) [Mass/Vol] 15.1 g/dL Normal 13.0-18.0 [facility] Comment on above: Performed By: #### L AB294 ####Diving Supervisor: DIGNA MORALES ([phone])[facility] ([facility])[address] [place] [address] MCH (RBC) [Entitic mass] 29.3 pg Normal 26.0-34.0 [facility] Comment on above: Performed By: #### L AB294 ####Diving Supervisor: DIGNA MORALES ([phone])[facility] (SB[facility])[address] [place] [address] MCHC 33.8 % Normal 30.5-36.0 [facility] Comment on above: Performed By: #### L AB294 ####Diving Supervisor: DIGNA ROJASREX ([phone])[facility] [place] ([facility])[address] MCV (RBC) [Entitic vol] 86.6 fL Normal 77.0-99.0 [facility] Comment on above: Performed By: #### L [id number] ####Diving Supervisor: DIGNA CARMEN ([phone])[facility]ENTERCarlos DAV[facility]LOVELACE [facility]OSPITALN ([facility])[address] Platelet mean volume (Bld) [Entitic vol] 10.6 fL Normal 9.0-12.7 [facility] Comment on above: Performed By: #### L [id number] ####Diving Supervisor: DIGNA CARMEN ([phone])[facility]ENTERCarlos [facility]LOVELACE [facility]ITALN ([facility])[address] Platelets (Bld) [#/Vol] 205 10*3/uL Normal 140-440 [facility] Comment on above: Performed By: #### L [id number] ####Diving Supervisor: DIGNA ROJASREX ([phone])[facility]ENTERCarlos [facility] ([facility])[address] RBC (Bld) [#/Vol] 5.16 10*6/uL Normal 4.40-5.90 [facility] Comment on above: Performed By: #### L [id number] ####Diving Supervisor: DIGNA ROJASREX ([phone])[facility]ENTERCarlos [facility]ITALN ([facility])[address] WBC (Bld) [#/Vol] 3.7 10*3/uL Normal 3.6-10.7 [facility] Comment on above: Performed By: #### L [id number] ####Diving Supervisor: DIGNA ROJASREX ([phone])[facility]A [facility]N ([facility])[address] CBC panel Auto (Bld)on 02-12 Erythrocyte distribution width (RBC) [Ratio] 18.5 % High 11.5 - 15.0 % [facility] Hematocrit (Bld) [Volume fraction] 44.7 % 40.0 - 52.0 % [facility] Hemoglobin (Bld) [Mass/Vol] 15.1 g/dL 13.0 - 18.0 g/dL [facility] Interpretation and review of laboratory results Abnormal [facility] MCH (RBC) [Entitic mass] 29.3 pg 26. 0 - 34.0 pg [facility] MCHC (RBC) [Mass/Vol] 33.8 % 30.5 - 36.0 % [facility] MCV (RBC) [Entitic vol] 86.6 fL 77.0 - 99.0 fL [facility] Platelet mean volume (Bld) [Entitic vol] 10.6 fL 9.0 - 12.7 fL [facility] Platelets (Bld) [#/Vol] 205 10*3/uL 140 - 440 10*3/uL [facility] RBC (Bld) [#/Vol] 5.16 10*6/uL 4.40 - 5.9 0 10*6/uL [facility] WBC (Bld) [#/Vol] 3.7 10*3/uL 3.6 - 10.7 10*3/uL [facility] - Chemistry and C hemistry - challengeon 02-12-2025 Glucose [Mass/Vol] 155 mg/dL High 70 - 100 mg/dL [facility] Glucose [Mass/Vol] 135 mg/dL High 70 - 100 mg/dL [facility] Glucose [Mass/Vol] 126 mg/dL High 70 - 100 mg/dL [facility] Glucose [Mass/Vol] 92 mg/dL 70 - 100 mg/dL [facility] Glucose [Mass/Vol] 60 mg/dL Low 70 - 100 mg/dL [facility] Procalcitonin [Mass/Vol] 0.08 ng/mL High LISANDRO F - 0.07 ng/mL [facility] No Panel Informationon 02-12 Interpretation and review of laboratory results Abnormal [facility] Performed by: Tutu Romeo [address] [place] [address] CLIA ID: [id number] [facility] Interpretation and review of laboratory results Abnormal [facility] Performed by: Jacques Lin [facility] [address] CLIA ID: [id number] [facility] Interpretation and review of laboratory results Abnormal [facility] Performed by: Nelliecarlos [place], [address] [place] [address] CLIA ID: [id number] [facility] Interpretation and review of laboratory results Normal [facility] Performed by: Nelliecarlos Romeo, [address] [place] [address], [facility] [address] CLIA ID: [id number] [facility] Interpretation and review of laboratory results Abnormal [facility] Performed by: Nelliecarlos Romeo, [address] [place] [address], [facility] [address] CLIA ID: [id number] [facility] PROCALCITONIN TESTon 025 PROCALCITONIN 0.08 ng/mL High <0.07 [facility] h System [facility] Comment on above: Result Comment: MIO Klein COMMENTS: PCT <0.50 = Low risk of severe sepsis and/or septic shock. PCT >2.00 = High risk of severe sepsis and/or septic shock. Performed By: #### L AB15, [id number] ####Diving Supervisor: DIGNA MORALES ([phone])[facility] PILLAI (SB[facility])[address] [place] [address] Procalcitonin [Mass/Vol]on 0 02-12-2025 Interpretation and review of laboratory results Abnormal [facility] PCT <0.50 = Low risk of severe sepsis and/or septic shock. PCT >2.00 = High risk of severe sepsis and/or septic shock. 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 Recent admit 01/28-02/01/[address] [facility] with volume overload and CHF Exacerbation. 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 Treated with IV Lasix and transitioned to [...] labs on admit: Gap(17), Creatinine(1.94), AST(39), bilirubin(1.8),BNP(> 54133). Negative venous duplex imaging. ID consulted and following with plans to transition form IV cefetpime to PO antibiotics. Pleasant and interactive, resting in bed at time of assessment with bed scale weight of 80.7 kg or 177.9# obtained. Noted patient ate ~75% breakfast tray (observed by this RDN). Cites appetite is ?okay?, +diarrhea and early satiety. 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 While he has used ONS in the past- declined a this time due to loose stooling. Requested A brownie and milk, liberlized diet. Estimated Daily Nutrient Needs: Energy Requirements Based On: Kcal/kg Weight Used for Energy Requirements: Yolyn Weight for Energy Calculation (kg): 67 kg Total Energy Requirements (kcals/day): 0239-0084 (25-30 kcal/kg IBW) Weight Used for Protein Requirements: Yolyn Weight in Kg Used for Protein Requirements: [...] 186.6# 02/01/25) % Weight Change (Calculated): -4.7 Yolyn Body Weight (lbs) (Calculated): 148 lbs Yolyn Body Weight (Kg) (Calculated): 67 kg % Yolyn Body Weight (Calculated): 120.2 % BMI (kg/m2) (Calculated): 27.9 Weight Adjustment For: No Adjustment BMI Categories: Overweight (BMI 25.0-29.9) Nutrition Diagnosis: Altered nutrition-related lab values related to cardiac dysfunction as evidenced by localized or generalized fluid accumulation, lab values Nutrition Interventions: Nutrition Education/Counseling : Education not indicated Coordination of Nutrition Care: Continue to monitor while inpatient Plan of Care discussed with: patient and INFORMATION SYSTEMS PROJECT MANAGER Goals: Previous Goal Met: Progressing toward Goal(s) Goals: PO intake 50% or greater Nutrition Monitoring and Evaluation: Behavioral-Environme ntal Outcomes: None Identified Food/Nutrient Intake Outcomes: Food and Nutrient Intake Physical Signs/Symptoms Outcomes: Biochemical Data, Chewing or Swallowing, Diarrhea, Nutrition Focused Physical Findings, Skin, Weight, Meal Time Behavior, Hemodynamic Status, Fluid Status or Edema Discharge Planning: Continue current diet Pari Morales, ADRIAN, LDN, Contact: *[phone] Normal [facility] [id number] 02-11-2025 [id number] Patient is currently active with [facility]. The patients current certification period will on 04/04/2025. The patient is currently receiving SN, PT services through the agency. Safety Physician to continue to follow. [facility] - Chemistry and C hemistry - challengeon 02-11-2025 Glucose [Mass/Vol] 111 mg/dL High 70 - 100 mg/dL [facility] Glucose [Mass/Vol] 100 mg/dL 70 - 100 mg/dL [facility] Glucose [Mass/Vol] 131 mg/dL High 70 - 100 mg/dL [facility] Glucose [Mass/Vol] 116 mg/dL High 70 - 100 mg/dL [facility] Glucose [Mass/Vol] 67 mg/dL Low 70 - 100 mg/dL [facility] No Panel Informationon 02-11 Interpretation and review of laboratory results Abnormal [facility] Performed by: Tutu Romeo, [address] [place] [address] CLIA ID: [id number] [facility] Interpretation and review of laboratory results Normal [facility] Performed by: Tutu Romeo [address] [place] [address] CLIA ID: [id number] [facility] Interpretation and review of laboratory results Abnormal [facility] Performed by: Tutu Romeo [address] [place] [address] CLIA ID: [id number] [facility] Interpretation and review of laboratory results Abnormal [facility] Performed by: [facility] [address] [place] [address] CLIA ID: [id number] [facility] Interpretation and review of laboratory results Abnormal [facility] Performed by: Tutu Romeo [address] [place] [address] CLIA ID: [id number] [facility] Nursing Noteon 02-11-2025 Nursing Note ROLO wrap applied to both feet. Normal [facility] US Lower extremity vein - bi lateralon [...] width (RBC) [Ratio] 18.6 % High 11.5-15.0 [facility] Comment on above: Performed By: #### L AB294 ####Diving Supervisor: DIGNA MORALES ([phone])[facility] ([facility])[address] [place] [address] Hematocrit (Bld) [Volume fraction] 45.8 % Normal 40.0-52.0 [facility] Comment on above: Performed By: #### L AB294 ####Diving Supervisor: DIGNA MORALES ([phone])[facility] NESHANIC STATION ([facility])[address] [place] [address] Hemoglobin (Bld) [Mass/Vol] 14.8 g/dL Normal 13.0-18.0 [facility] Comment on above: Performed By: #### L AB294 ####Diving Supervisor: DIGNA MORALES ([phone])[place]USANKENDALL (SB[facility])[address] MCH (RBC) [Entitic mass] 28.1 pg Normal 26.0-34.0 [facility] Comment on above: Performed By: #### L AB294 ####Diving Supervisor: DIGNA MORALES ([phone])[facility] DAVISKENDALL (SBHLAB)[address] MCHC 32.3 % Normal 30.5-36.0 [facility] Comment on above: Performed By: #### L AB294 ####Diving Supervisor: DIGNA MORALES ([phone])[facility]Carl[facility] SUSANKENDALL (SBHLAB)[address] MCV (RBC) [Entitic vol] 87.1 fL Normal 77.0-99.0 [facility] Comment on above: Performed By: #### L AB294 ####Diving Supervisor: DIGNA MORALES ([phone])[facility] DAVISKENDALL (SBHLAB)[address] Platelet mean volume (Bld) [Entitic vol] 10.7 fL Normal 9.0-12.7 [facility] Comment on above: Performed By: #### L AB294 ####Diving Supervisor: DIGNA MORAELS ([phone])[facility]Carlos SUSANKENDALL (SBHLAB)[address] [place] [address] [place] Platelets (Bld) [#/Vol] 198 10*3/uL Normal 140-440 [facility] Comment on above: Performed By: #### L AB294 ####Diving Supervisor: DIGNA MORALES ([phone])[facility]ENTERCarlos BARBKENDALL (SBHLAB)[address] [place] [address] [place] RBC (Bld) [#/Vol] 5.26 10*6/uL Normal 4.40-5.90 [facility] Comment on above: Performed By: #### L AB294 ####Diving Supervisor: DIGNA MORALES ([phone])[facility] (SBHLAB)[address] WBC (Bld) [#/Vol] 5.1 10*3/uL Normal 3.6-10.7 [facility] Comment on above: Performed By: #### L AB294 ####Diving Supervisor: DIGNA MORALES ([phone])[facility] ([facility])[address] CBC panel Auto (Bld)on 02-10 Erythrocyte distribution width (RBC) [Ratio] 18.6 % High 11.5 - 15.0 % [facility] Hematocrit (Bld) [Volume fraction] 45.8 % 40.0 - 52.0 % [facility] Hemoglobin (Bld) [Mass/Vol] 14.8 g/dL 13.0 - 18.0 g/dL [facility] Interpretation and review of laboratory results Abnormal [facility] MCH (RBC) [Entitic mass] 28.1 pg 26. 0 - 34.0 pg [facility] MCHC (RBC) [Mass/Vol] 32.3 % 30.5 - 36.0 % [facility] MCV (RBC) [Entitic vol] 87.1 fL 77.0 - 99.0 fL [facility] Platelet mean volume (Bld) [Entitic vol] 10.7 fL 9.0 - 12.7 fL [facility] Platelets (Bld) [#/Vol] 198 10*3/uL 140 - 440 10*3/uL [facility] RBC (Bld) [#/Vol] 5.26 10*6/uL 4.40 - 5.9 0 10*6/uL [facility] WBC (Bld) [#/Vol] 5.1 10*3/uL 3.6 - 10.7 10*3/uL [facility] COMPREHENSIVE METABOLIC PANE Greg 02-10-2025 Albumin [Mass/Vol] 3.4 g/dL Normal 3.4-4.8 [facility] Comment on above: Performed By: #### L AB106, LAB17 ####Diving Supervisor: DIGNA MORALES ([phone])[facility]ENTERA [facility] (SB[facility])[address] ALP [Catalytic activity/Vol] 94 U/L Normal 40-150 [facility] Comment on above: Performed By: #### L AB106, LAB17 ####Diving Supervisor: DIGNA MORALES ([phone])[facility] ([facility])[address] ALT [Catalytic activity/Vol] 10 U/L Normal <40 [facility] Comment on above: Performed By: #### L AB106, LAB17 ####Diving Supervisor: DIGNA MORALES ([phone])[facility] ([facility])[address] Anion gap [Moles/Vol] 17 mmol/L High 3-13 [facility] Comment on above: Performed By: #### L AB106, LAB17 ####Diving Supervisor: DIGNA MORALES ([phone])[facility] ([facility])[address] AST [Catalytic activity/Vol] 39 U/L High <34 [facility] Comment on above: Result Comment: TC Potential interference from hemolysis Performed By: #### L AB106, LAB17 ####Diving Supervisor: DIGNA MORALES ([phone])[facility]A [facility] ([facility])[address] Bilirubin [Mass/Vol] 1.8 mg/dL High <1.2 [facility] Comment on above: Performed By: #### L AB106, LAB17 ####Diving Supervisor: DIGNA MORALES ([phone])[facility] ([facility])[address] Calcium [Mass/Vol] 8.7 mg/dL Low 8.8-10.0 [facility] Comment on above: Performed By: #### L AB106, LAB17 ####Diving Supervisor: DIGNA MORALES ([phone])[facility]A BARBHARSHN (SBHLAB)[address] Chloride [Moles/Vol] 102 mmol/L Normal 98-107 [facility] Comment on above: Performed By: #### L AB106, LAB17 ####Diving Supervisor: DIGNA MORALES ([phone])[facility] [place] (SB[facility]AB)[address] CO2 [Moles/Vol] 22 mmol/L Low 23-31 [facility] Comment on above: Performed By: #### L AB106, LAB17 ####Diving Supervisor: DIGNA MORALES ([phone])[facility]ENTERCarlos DAVISERTON (SBHLAB)[address] Creatinine [Mass/Vol] 1.94 mg/dL High 0.72-1.25 [facility] Comment on above: Performed By: #### L AB106, LAB17 ####Diving Supervisor: DIGNA MORALES ([phone])[facility]A [place] (SB[facility]AB)[address] GLOMERULAR FILTRATION RATE ML/MIN/1.73 SQ M.PREDICTED 33.3 mL/min/1.73m*2 Low >60.0 [facility] Comment on above: Result Comment: Calc ulation based on the Chronic Kidney Disease Epidemiology Collaboration (CKD-EPI) equation refit without adjustment for race Performed By: #### L AB106, LAB17 ####Diving Supervisor: DIGNA MORALES ([phone])[facility] [place] (SB[facility])[address] [place] [address] [place] Glucose [Mass/Vol] 89 mg/dL Normal 82-115 [facility] Comment on above: Performed By: #### L AB106, LAB17 ####Diving Supervisor: DIGNA MORALES ([phone])[facility] [place] (SB[facility])[address] [place] [address] [place] Potassium [Moles/Vol] 3.9 mmol/L Normal 3.5-5.1 [facility] Comment on above: Result Comment: [facility] potassium values may be up to 0.5 mmol/L lower than serum values. Performed By: #### L AB106, LAB17 ####Diving Supervisor: DIGNA MORALES ([phone])[facility] ([facility])[address] Protein [Mass/Vol] 6.6 g/dL Normal 6.4-8.3 [facility] Comment on above: Performed By: #### L AB106, LAB17 ####Diving Supervisor: DIGNA MORALES ([phone])[facility] ([facility])[address] Sodium [Moles/Vol] 141 mmol/L Normal 136-145 [facility] Comment on above: Performed By: #### L AB106, LAB17 ####Diving Supervisor: DIGNA MORALES ([phone])[facility] ([facility])[address] Urea nitrogen [Mass/Vol] 23 mg/dL Normal 9-23 [facility] Comment on above: Performed By: #### L AB106, LAB17 ####Diving Supervisor: DIGNA MORALES ([phone])[facility] ([facility])[address] [place] [address] Comprehensive metabolic 1998 panelon 02-10-2025 Albumin [Mass/Vol] 3.4 g/dL 3.4 - 4.8 g/dL [facility] ALP [Catalytic activity/Vol] 94 U/L 40 - 150 U/L [facility] ALT [Catalytic activity/Vol] 10 U/L NINF - 40 U/L [facility] Anion gap [Moles/Vol] 17 mmol/L High 3 - 13 mmol/L [facility] AST [Catalytic activity/Vol] 39 U/L High NINF - 34 U/L [facility] Comment on above: TC Potential interference from hemolysis Bilirubin [Mass/Vol] 1.8 mg/dL High NINF - 1.2 mg/dL [facility] Calcium [Mass/Vol] 8.7 mg/dL Low 8.8 - 10. 0 mg/dL [facility] Chloride [Moles/Vol] 102 mmol/L 98 - 10 7 mmol/L [facility] CO2 [Moles/Vol] 22 mmol/L Low 23 - 31 mmol/L [facility] Creatinine [Mass/Vol] 1.94 mg/dL High 0.72 - 1.25 mg/dL [facility] GFR/1.73 sq M.predicted (S/P/Bld) [Vol rate/Area] 33.3 mL/min Low - PINF [facility] Comment on above: Calculation based on the Chronic Kidney Disease Epidemiology Collaboration (CKD-EPI) equation refit without adjustment for race Glucose [Mass/Vol] 89 mg/dL 82 - 115 mg/dL [facility] Interpretation and review of laboratory results Abnormal [facility] Potassium [Moles/Vol] 3.9 mmol/L 3.5 - 5.1 mmol/L [facility] Comment on above: Plasma potassium erika ues may be up to 0.5 mmol/L lower than serum values. Protein [Mass/Vol] 6.6 g/dL 6.4 - 8.3 g/dL [facility] Sodium [Moles/Vol] 141 mmol/L 136 - 145 mmol/L [facility] Urea nitrogen [Mass/Vol] 23 mg/dL 9 - 23 mg/d L [facility] Consulton 02-10-2025 Consult [facility] - Infectious Diseases Attending Consult [...] ED (erectile d (more content not included)... [facility] ED Provider Noteon 5 ED Provider Note [...] mg. Repor (more content not included)... Normal [facility] LACTIC ACID WITH REFLEXon Lactate [Moles/Vol] 2.0 mmol/L Normal 0.5-2.2 [facility] Comment on above: Performed By: #### L [id number] ####Diving Supervisor: DIGNA MORALES ([phone])[facility] ([facility])[address] [place] [address] Laboratory - Chemistry and C hemistry - challengeon 02-10-2025 Glucose [Mass/Vol] 98 mg/dL 70 - 100 mg/dL [facility] Glucose [Mass/Vol] 80 mg/dL 70 - 100 mg/dL [facility] Glucose [Mass/Vol] 83 mg/dL 70 - 100 mg/dL [facility] Lactate [Moles/Vol] 2 mmol/L 0.5 - 2. 2 mmol/L [facility] NT PRO BNPon 02-10-2025 NT PRO BNP >82145 High <450 [facility] Comment on above: Performed By: #### L AB106, LAB17 ####Diving Supervisor: DIGNA MORALES ([phone])[facility] ([facility])[address] [place] [address] Natriuretic peptide B [Mass/ Vol]on 02-10-2025 Interpretation and review of laboratory results Abnormal [facility] Natriuretic peptide B (Bld) [Mass/Vol] pg/mL High NINF - 450 pg/mL [facility] No Panel Informationon 02-10 Interpretation and review of laboratory results Normal [facility] Performed by: Tutu Daviserton, [address] [facility], [facility] [address] CLIA ID: [id number] [facility] Interpretation and review of laboratory results Normal [facility] Performed by: Tutu Romeo, [address] [facility], [facility] [address] CLIA ID: [id number] [facility] Interpretation and review of laboratory results Normal [facility] Performed by: Tutu Pillain, [address] [facility], [facility] [address] CLIA ID: [id number] [facility] Interpretation and review of laboratory results Normal [facility] 36on 02-07-2025 36 TC to Pt No answer LVM [facility] 36 Patient left message saying he had a question about meds [facility] 36 Per Marcela Rosado Pt can continue the Dupixent No answer LVM explaining this as VM states full name [place] [address]on 02-04-2025 36 Heart Failure Clinic Discharge Call [...] again. RP 02/15/25 1430 Pt verbalizes understanding. [facility] 36 Patient called and was returning your phone call [facility] 36 TC to Pt no answer LVM [facility] 36 Discharged with heart failure. Needs 72 hour post discharge phone call. [facility] [id number] 02-01-2025 [id number] Confirmed with Valerie at PCP's office that patient is active with Dr. Durand for PCP and he will follow for home care orders. [facility] [id number] 02-01-2025 [id number] Home Health Care Services - [facility] [address] [place] [place] [id number] Patient/Family Choice [facility] [id number] Next Site of Care Admission Date: 01/28/2025 01:43 AM Patient Name: MEGAN NASCIMENTO Location: [address] CARDIAC [place] [address] Date of : 1940 Placement Information Referral Type:Home Health Care Services - New Referral ID:[id number] Provider Name:[facility] Address 1:Dimitris Mitchell A[address] Address 2: City:[place] Selection Factors:Patient/Fami ly Choice State:[place] Normal [facility] CALCIUM, IONIZEDon CALCIUM IONIZED 4.40 mg/dL Normal 4.30-5.20 [facility] Comment on above: Performed By: #### L AB54 ####Diving Supervisor: JORGE A MALDONADO ([phone])[facility])[address] [place] [address] PH, IONIZED CALCIUM 7.33 Normal 7.31-7.46 [facility] Comment on above: Performed By: #### L AB54 ####Diving Supervisor: JORGE A MALDONADO ([phone])[facility])[address] [place] [address] CBC (HEMOGRAM)on 02-01-2025 Erythrocyte distribution width (RBC) [Ratio] 19.1 % High 11.5-15.0 [facility] Comment on above: Performed By: #### L AB294 #### Diving Supervisor: JORGE A MALDONADO ([phone]) [facility]) [address] [place] [address] Hematocrit (Bld) [Volume fraction] 44.6 % Normal 40.0-52.0 [facility] Comment on above: Performed By: #### L AB294 #### Diving Supervisor: JORGE A MALDONADO ([phone]) [facility]) [address] [place] [address] Hemoglobin (Bld) [Mass/Vol] 14.4 g/dL Normal 13.0-18.0 [facility] Comment on above: Performed By: #### L AB294 #### Diving Supervisor: JORGE A MALDONADO ([phone]) [facility] [address] [place] [address] MCH (RBC) [Entitic mass] 28.2 pg Normal 26.0-34.0 [facility] Comment on above: Performed By: #### L AB294 #### Diving Supervisor: JORGE A MALDONADO ([phone]) [facility] ([facility]) [address] [place] [address] MCHC 32.3 % Normal 30.5-36.0 [facility] Comment on above: Performed By: #### L AB294 #### Diving Supervisor: JORGE A MALDONADO ([phone]) [facility] ([facility]) [address] [place] [address] MCV (RBC) [Entitic vol] 87.5 fL Normal 77.0-99.0 S [facility] Comment on above: Performed By: #### L AB294 #### Diving Supervisor: JORGE A MALDONADO ([phone]) [facility] ([facility]) [address] [place] [address] Platelet mean volume (Bld) [Entitic vol] 10.3 fL Normal 9.0-12.7 [facility] Comment on above: Performed By: #### L AB294 #### Diving Supervisor: JORGE A MALDONADO ([phone]) [facility] ([facility]) [address] [place] [address] Platelets (Bld) [#/Vol] 194 10*3/uL Normal 140-440 [facility] Comment on above: Performed By: #### L AB294 #### Diving Supervisor: JORGE A MALDONADO ([phone]) [facility] ([facility]) [address] [place] [address] RBC (Bld) [#/Vol] 5.10 10*6/uL Normal 4.40-5.90 [facility] Comment on above: Performed By: #### L AB294 #### Diving Supervisor: JORGE A MALDONADO ([phone]) [facility] ([facility]) [address] [place] [address] WBC (Bld) [#/Vol] 4.2 10*3/uL Normal 3.6-10.7 [facility] Comment on above: Performed By: #### L AB294 #### Diving Supervisor: JORGE A MALDONADO ([phone]) [facility] ([facility]) [address] [place] [address] CBC panel Auto (Bld)on 02-01 Erythrocyte distribution width (RBC) [Ratio] 19.1 % High 11.5 - 15.0 % [facility] Hematocrit (Bld) [Volume fraction] 44.6 % 40.0 - 52.0 % [facility] Hemoglobin (Bld) [Mass/Vol] 14.4 g/dL 13.0 - 18.0 g/dL [facility] Interpretation and review of laboratory results Abnormal [facility] MCH (RBC) [Entitic mass] 28.2 pg 26. 0 - 34.0 pg [facility] MCHC (RBC) [Mass/Vol] 32.3 % 30.5 - 36.0 % [facility] MCV (RBC) [Entitic vol] 87.5 fL 77.0 - 99.0 fL [facility] Platelet mean volume (Bld) [Entitic vol] 10.3 fL 9.0 - 12.7 fL [facility] Platelets (Bld) [#/Vol] 194 10*3/uL 140 - 440 10*3/uL [facility] RBC (Bld) [#/Vol] 5.1 10*6/uL 4.40 - 5.9 0 10*6/uL [facility] WBC (Bld) [#/Vol] 4.2 10*3/uL 3.6 - 10.7 10*3/uL [facility] COMPREHENSIVE METABOLIC PANE Greg 02-01-2025 Albumin [Mass/Vol] 3.7 g/dL Normal 3.4-4.8 [facility] Comment on above: Performed By: #### L AB113, LAB17, [id number] ####Diving Supervisor: JORGE A MALDONADO ([phone])[facility] ([facility])[address] [place] [address] ALP [Catalytic activity/Vol] 106 U/L Normal 40-150 [facility] Comment on above: Performed By: #### L AB113, LAB17, [id number] ####Diving Supervisor: JORGE A MALDONADO ([phone])[facility] ([facility])[address] [place] [address] ALT [Catalytic activity/Vol] 14 U/L Normal <40 [facility] Comment on above: Performed By: #### L AB113, LAB17, [id number] ####Diving Supervisor: JORGE A MALDONADO ([phone])[facility] ([facility])[address] [place] [address] Anion gap [Moles/Vol] 10 mmol/L Normal 3-13 [facility] Comment on above: Performed By: #### Russell AB113, LAB17, [id number] ####Diving Supervisor: JORGE A MALDONADO ([phone])[facility] ([facility])[address] [place] [address] AST [Catalytic activity/Vol] 30 U/L Normal <34 [facility] Comment on above: Performed By: #### L AB113, LAB17, [id number] ####Diving Supervisor: JORGE A MALDONADO ([phone])[facility] ([facility])[address] [place] [address] Bilirubin [Mass/Vol] 1.7 mg/dL High <1.2 [facility] Comment on above: Performed By: #### L ABNakul, LAB17, [id number] ####Diving Supervisor: JORGE A MALDONADO ([phone])[facility] ([facility])[address] [place] [address] Calcium [Mass/Vol] 9.6 mg/dL Normal 8.8-10.0 [facility] Comment on above: Performed By: #### L AB113, LAB17, [id number] ####Diving Supervisor: JORGE A MALDONADO ([phone])[facility])[address] [place] [address] Chloride [Moles/Vol] 104 mmol/L Normal 98-107 [facility] Comment on above: Performed By: #### L AB113, LAB17, [id number] ####Diving Supervisor: JORGE A MALDONADO ([phone])[facility] ([facility])[address] [place] [address] [place] CO2 [Moles/Vol] 25 mmol/L Normal 23-31 [facility] Comment on above: Performed By: #### L AB113, LAB17, [id number] ####Diving Supervisor: JORGE A MALDONADO ([phone])[facility] ([facility])[address] [place] [address] Creatinine [Mass/Vol] 1.90 mg/dL High 0.72-1.25 [facility] Comment on above: Performed By: #### L ABNakul, LAB17, [id number] ####Diving Supervisor: JORGE A MALDONADO ([phone])[facility])[address] [place] [address] GLOMERULAR FILTRATION RATE ML/MIN/1.73 SQ M.PREDICTED 34.1 mL/min/1.73m*2 Low >60.0 [facility] Comment on above: Result Comment: Calc ulation based on the Chronic Kidney Disease Epidemiology Collaboration (CKD-EPI) equation refit without adjustment for race Performed By: #### Russell ABNakul, LAB17, [id number] ####Diving Supervisor: JORGE A MALDONADO ([phone])[facility] ([facility])[address] [place] [address] Glucose [Mass/Vol] 121 mg/dL High 82-115 [facility] Comment on above: Performed By: #### L AB113, LAB17, VFT666 ####Diving Supervisor: JORGE A MALDONADO ([phone])[facility] ([facility])[address] [place] [address] [place] Potassium [Moles/Vol] 3.7 mmol/L Normal 3.5-5.1 [facility] Comment on above: Result Comment: [facility] potassium values may be up to 0.5 mmol/L lower than serum values. Performed By: #### L AB113, LAB17, [id number] ####Diving Supervisor: JORGE A MALDONADO ([phone])[facility] ([facility])[address] [place] [address] [place] Protein [Mass/Vol] 7.1 g/dL Normal 6.4-8.3 [facility] Comment on above: Performed By: #### L AB113, LAB17, [id number] ####Diving Supervisor: JORGE A MALDONADO ([phone])[facility] ([facility])[address] [place] [address] Sodium [Moles/Vol] 139 mmol/L Normal 136-145 [facility] Comment on above: Performed By: #### L AB113, LAB17, [id number] ####Diving Supervisor: JORGE A MALDONADO ([phone])[facility] ([facility])[address] [place] [address] Urea nitrogen [Mass/Vol] 28 mg/dL High 9-23 [facility] Comment on above: Performed By: #### L AB113, LAB17, ITQ174 ####Diving Supervisor: JORGE A MALDONADO ([phone])[facility] ([facility])[address] [place] [address] Calcium.ionized [Moles/Vol]O rdered By: Manuel Chow on 02-01-2025 Calcium.ionized (Bld) [Moles/Vol] 4.4 mg/dL 4.30 - 5.20 mg/dL [facility] Interpretation and review of laboratory results Normal [facility] PH, IONIZED CALCIUM 7.33 7.31 - 7.46 [facility] Comprehensive metabolic 1998 panelon 02-01-2025 Albumin [Mass/Vol] 3.7 g/dL 3.4 - 4.8 g/dL [facility] ALP [Catalytic activity/Vol] 106 U/L 40 - 150 U/L [facility] ALT [Catalytic activity/Vol] 14 U/L NINF - 40 U/L [facility] Anion gap [Moles/Vol] 10 mmol/L 3 - 13 mmol/L [facility] AST [Catalytic activity/Vol] 30 U/L NINF - 34 U/L [facility] Bilirubin [Mass/Vol] 1.7 mg/dL High NINF - 1.2 mg/dL [facility] Calcium [Mass/Vol] 9.6 mg/dL 8.8 - 10. 0 mg/dL [facility] Chloride [Moles/Vol] 104 mmol/L 98 - 10 7 mmol/L [facility] CO2 [Moles/Vol] 25 mmol/L 23 - 31 mmol/L [facility] Creatinine [Mass/Vol] 1.9 mg/dL High 0.72 - 1.25 mg/dL [facility] GFR/1.73 sq M.predicted (S/P/Bld) [Vol rate/Area] 34.1 mL/min Low - PINF [facility] Comment on above: Calculation based on the Chronic Kidney Disease Epidemiology Collaboration (CKD-EPI) equation refit without adjustment for race Glucose [Mass/Vol] 121 mg/dL High 82 - 115 mg/dL [facility] Interpretation and review of laboratory results Abnormal [facility] Potassium [Moles/Vol] 3.7 mmol/L 3.5 - 5.1 mmol/L [facility] Comment on above: Plasma potassium erika ues may be up to 0.5 mmol/L lower than serum values. Protein [Mass/Vol] 7.1 g/dL 6.4 - 8.3 g/dL [facility] Sodium [Moles/Vol] 139 mmol/L 136 - 145 mmol/L [facility] Urea nitrogen [Mass/Vol] 28 mg/dL High 9 - 23 mg/d L [facility] Laboratory - Chemistry and C hemistry - challengeon 02-01-2025 Magnesium [Mass/Vol] 2.1 mg/dL 1.6 - 2 .6 mg/dL [facility] Glucose [Mass/Vol] 129 mg/dL High 70 - 100 mg/dL [facility] Glucose [Mass/Vol] 101 mg/dL High 70 - 100 mg/dL [facility] MAGNESIUMon 02-01-2025 Magnesium [Mass/Vol] 2.1 mg/dL Normal 1.6-2.6 [facility] Comment on above: Result Comment: MIO R COMMENTS: Higher values can be expected in females during menses. Performed By: #### L AB113, LAB17, [id number] ####Diving Supervisor: JORGE A MALDONADO ([phone])[facility] ([facility])[address] [place] [address] Magnesium [Mass/Vol]on 02-01 Higher values can be expected in females during menses. [facility] No Panel Informationon 02-01 Interpretation and review of laboratory results Normal [facility] Interpretation and review of laboratory results Abnormal [facility] Performed by: [facility], [address] [place] [address] CLIA ID: [id number] [facility] Interpretation and review of laboratory results Abnormal [facility] Performed by: [facility], [address] [place] [address] CLIA ID: [id number] [facility] Nursing Noteon 02-01-2025 Nursing Note AVS instructions given. Meds to bed delivered. IV's removed. residential monitor removed, cleaned and placed at corresponding location nurses station. Patient has no questions or concerns at this time. Returning home via family. Normal [facility] PHOSPHORUSon 02-01-2025 Phosphate [Mass/Vol] 2.3 mg/dL Normal 2.3-4.7 [facility] Comment on above: Performed By: #### L AB113, LAB17, [id number] ####Diving Supervisor: JORGE A MALDONADO ([phone])[facility] ([facility])[address] [place] [address] Phosphate [Moles/Vol]on 01-18 Phosphate [Mass/Vol] 2.3 mg/dL 2.3 - 4 .7 mg/dL [facility] 30on 01-31-2025 30 Problem: Knowledge Deficit Goal: [...] Goal: Promote nutritional intake Outcome: Progressing Normal [facility] 30 Problem: Knowledge Deficit Goal: Patient/family/careg iver [...] Goal: Promote nutritional intake Outcome: Progressing Normal [facility] [id number] 01-31-2025 [id number] Care Managment Initial Assessment Date: 01/31/2025 Patient Name: Megan Nascimento : 1940 Patient Information Source of Information: Patient Cognition/Language: WFL - Within Functional Limits Permission given to speak with patient sales promotion representative/careg iver as indicated: Yes Confirmation of Payer with patient/family: Yes Payer Name: [employer] Medicare advantage [place]: No Confirmation of Primary Care Physician: Confirmed [...] Alone Support Systems: Children, Family members, Friends/neighbors, international trade manager/social studies teacher, Home care staff Activities of Daily [...] Walker DME Provider: His daughter is his career services officer Patient's Goal/Discharge Plan Patient expects to be [...] for needs. . Nelly Pisano RN Normal [facility] CALCIUM, IONIZEDon CALCIUM IONIZED 4.60 mg/dL Normal 4.30-5.20 [facility] Comment on above: Performed By: #### L AB54 ####Diving Supervisor: JORGE A MALDONADO ([phone])[facility])[address] [place] [address] PH, IONIZED CALCIUM 7.37 Normal 7.31-7.46 [facility] Comment on above: Performed By: #### L AB54 ####Diving Supervisor: JORGE A MALDONADO ([phone])[facility])[address] [place] [address] CALCIUM IONIZED 4.10 mg/dL Low 4.30-5.20 [facility] Comment on above: Performed By: #### L AB54 ####Diving Supervisor: JORGE A MALDONADO ([phone])[facility])[address] [place] [address] PH, IONIZED CALCIUM 7.43 Normal 7.31-7.46 [facility] Comment on above: Performed By: #### L AB54 ####Diving Supervisor: JORGE A MALDONADO ([phone])[facility])[address] [place] [address] CBC (HEMOGRAM)on 01-31-2025 Erythrocyte distribution width (RBC) [Ratio] 19.4 % High 11.5-15.0 [facility] Comment on above: Performed By: #### L AB294 ####Diving Supervisor: JORGE A MALDONADO ([phone])[address] Hematocrit (Bld) [Volume fraction] 45.5 % Normal 40.0-52.0 [facility] Comment on above: Performed By: #### L AB294 ####Diving Supervisor: JORGE A MALDONADO ([phone])[facility])[address] [place] [address] Hemoglobin (Bld) [Mass/Vol] 14.6 g/dL Normal 13.0-18.0 [facility] Comment on above: Performed By: #### L AB294 ####Diving Supervisor: JORGE A MALDONADO ([phone])[address] MCH (RBC) [Entitic mass] 28.5 pg Normal 26.0-34.0 [facility] Comment on above: Performed By: #### L AB294 ####Diving Supervisor: JORGE A MALDONADO ([phone])[facility])[address] [place] [address] MCHC 32.1 % Normal 30.5-36.0 [facility] Comment on above: Performed By: #### L AB294 ####Diving Supervisor: JORGE A MALDONADO ([phone])[address] MCV (RBC) [Entitic vol] 88.9 fL Normal 77.0-99.0 S [facility] Comment on above: Performed By: #### L AB294 ####Diving Supervisor: JORGE A MALDONADO ([phone])[address] Platelet mean volume (Bld) [Entitic vol] 9.8 fL Normal 9.0-12.7 [facility] Comment on above: Performed By: #### L AB294 ####Diving Supervisor: JORGE A MALDONADO ([phone])[facility] ([facility])[address] [place] [address] Platelets (Bld) [#/Vol] 180 10*3/uL Normal 140-440 [facility] Comment on above: Performed By: #### L AB294 ####Diving Supervisor: JORGE A MALDONADO ([phone])[facility])[address] [place] [address] RBC (Bld) [#/Vol] 5.12 10*6/uL Normal 4.40-5.90 [facility] Comment on above: Performed By: #### L AB294 ####Diving Supervisor: JORGE A MALDONADO ([phone])[facility])[address] [place] [address] WBC (Bld) [#/Vol] 4.4 10*3/uL Normal 3.6-10.7 [facility] Comment on above: Performed By: #### L AB294 ####Diving Supervisor: JORGE A MALDONADO ([phone])[facility] ([facility])[address] [place] [address] CBC panel Auto (Bld)on 01-31 Erythrocyte distribution width (RBC) [Ratio] 19.4 % High 11.5 - 15.0 % [facility] Hematocrit (Bld) [Volume fraction] 45.5 % 40.0 - 52.0 % [facility] Hemoglobin (Bld) [Mass/Vol] 14.6 g/dL 13.0 - 18.0 g/dL [facility] Interpretation and review of laboratory results Abnormal [facility] MCH (RBC) [Entitic mass] 28.5 pg 26. 0 - 34.0 pg [facility] MCHC (RBC) [Mass/Vol] 32.1 % 30.5 - 36.0 % [facility] MCV (RBC) [Entitic vol] 88.9 fL 77.0 - 99.0 fL [facility] Platelet mean volume (Bld) [Entitic vol] 9.8 fL 9.0 - 12.7 fL [facility] Platelets (Bld) [#/Vol] 180 10*3/uL 140 - 440 10*3/uL [facility] RBC (Bld) [#/Vol] 5.12 10*6/uL 4.40 - 5.9 0 10*6/uL [facility] WBC (Bld) [#/Vol] 4.4 10*3/uL 3.6 - 10.7 10*3/uL [facility] COMPREHENSIVE METABOLIC PANE Greg 01-31-2025 Albumin [Mass/Vol] 3.5 g/dL Normal 3.4-4.8 [facility] Comment on above: Performed By: #### L AB17, YIZ891, IAA967 ####Diving Supervisor: JORGE A MALDONADO ([phone])[facility] ([facility])[address] [place] [address] ALP [Catalytic activity/Vol] 106 U/L Normal 40-150 [facility] Comment on above: Performed By: #### L AB17, ZRG606, [id number] ####Diving Supervisor: JORGE A MALDONADO ([phone])[facility] ([facility])[address] [place] [address] ALT [Catalytic activity/Vol] 14 U/L Normal <40 [facility] Comment on above: Performed By: #### Russell AB17, JJX922, FSA707 ####Diving Supervisor: JORGE A MALDONADO ([phone])[facility] ([facility])[address] [place] [address] Anion gap [Moles/Vol] 14 mmol/L High 3-13 [facility] Comment on above: Performed By: #### L AB17, [id number], [id number] ####Diving Supervisor: JORGE A MALDONADO ([phone])[facility] ([facility])[address] [place] [address] AST [Catalytic activity/Vol] 28 U/L Normal <34 [facility] Comment on above: Performed By: #### L AB17, FCX728, HAA932 ####Diving Supervisor: JORGE A MALDONADO ([phone])[facility] ([facility])[address] [place] [address] Bilirubin [Mass/Vol] 1.6 mg/dL High <1.2 [facility] Comment on above: Performed By: #### L AB17, MUZ874, IUR885 ####Diving Supervisor: JORGE A MALDONADO ([phone])[facility])[address] [place] [address] Calcium [Mass/Vol] 9.6 mg/dL Normal 8.8-10.0 [facility] Comment on above: Performed By: #### L AB17, GPU613, MLI333 ####Diving Supervisor: JORGE A MALDONADO ([phone])[facility] ([facility])[address] [place] [address] Chloride [Moles/Vol] 103 mmol/L Normal 98-107 [facility] Comment on above: Performed By: #### Russell AB17, HCI348, KTP748 ####Diving Supervisor: JORGE A MALDONADO ([phone])[facility])[address] [place] [address] CO2 [Moles/Vol] 23 mmol/L Normal 23-31 [facility] Comment on above: Performed By: #### Russell AB17, BHT434, APE825 ####Diving Supervisor: JORGE A MALDONADO ([phone])[facility])[address] [place] [address] Creatinine [Mass/Vol] 1.88 mg/dL High 0.72-1.25 [facility] Comment on above: Performed By: #### Russell AB17, PTK168, GOI723 ####Diving Supervisor: JORGE A MALDONADO ([phone])[facility])[address] [place] [address] [place] GLOMERULAR FILTRATION RATE ML/MIN/1.73 SQ M.PREDICTED 34.6 mL/min/1.73m*2 Low >60.0 [facility] Comment on above: Result Comment: Calc ulation based on the Chronic Kidney Disease Epidemiology Collaboration (CKD-EPI) equation refit without adjustment for race Performed By: #### L AB17, PVD524, ZMQ909 ####Diving Supervisor: JORGE A MALDONADO ([phone])[facility])[address] [place] [address] Glucose [Mass/Vol] 121 mg/dL High 82-115 [facility] Comment on above: Performed By: #### L AB17, DAE116, DKI823 ####Diving Supervisor: JORGE A MALDONADO ([phone])[facility] [place] [address] Potassium [Moles/Vol] 4.0 mmol/L Normal 3.5-5.1 [facility] Comment on above: Result Comment: [facility] potassium values may be up to 0.5 mmol/L lower than serum values. Performed By: #### L AB17, TQT769, NIA835 ####Diving Supervisor: JORGE A MALDONADO ([phone])[facility] ([facility])[address] [place] [address] Protein [Mass/Vol] 6.6 g/dL Normal 6.4-8.3 [facility] Comment on above: Performed By: #### L AB17, LOB312, [id number] ####Diving Supervisor: JORGE A MALDONADO ([phone])[facility] [place] [address] [place] Sodium [Moles/Vol] 140 mmol/L Normal 136-145 [facility] Comment on above: Performed By: #### L AB17, ZVX577, DUQ617 ####Diving Supervisor: JORGE A MALDONADO ([phone])[facility] [place] [address] [place] Urea nitrogen [Mass/Vol] 31 mg/dL High 9-23 [facility] Comment on above: Performed By: #### L AB17, SLY751, [id number] ####Diving Supervisor: JORGE A MALDONADO ([phone])[facility] ([facility])[address] [place] [address] [place] Albumin [Mass/Vol] 3.3 g/dL Low 3.4-4.8 [facility] Comment on above: Performed By: #### L AB113, LAB17, PGF150 ####Diving Supervisor: JORGE A MALDONADO ([phone])[facility])[address] [place] [address] ALP [Catalytic activity/Vol] 97 U/L Normal 40-150 [facility] Comment on above: Performed By: #### Russell ABNakul, LAB17, MPH055 ####Diving Supervisor: JORGE A MALDONADO ([phone])[facility] [place] [address] ALT [Catalytic activity/Vol] 11 U/L Normal <40 [facility] Comment on above: Performed By: #### L AB113, LAB17, UPV109 ####Diving Supervisor: JORGE A MALDONADO ([phone])[facility] ([facility])[address] [place] [address] Anion gap [Moles/Vol] 8 mmol/L Normal 3-13 [facility] Comment on above: Performed By: #### Russell ABNakul, LAB17, QAA144 ####Diving Supervisor: JORGE A MALDONADO ([phone])[facility] ([facility])[address] [place] [address] AST [Catalytic activity/Vol] 30 U/L Normal <34 [facility] Comment on above: Performed By: #### Russell ABNakul, LAB17, FFE961 ####Diving Supervisor: JORGE A MALDONADO ([phone])[facility] ([facility])[address] [place] [address] Bilirubin [Mass/Vol] 1.5 mg/dL High <1.2 [facility] Comment on above: Performed By: #### Russell ABNakul, LAB17, CHU546 ####Diving Supervisor: JORGE A MALDONADO ([phone])[facility] ([facility])[address] [place] [address] [place] Calcium [Mass/Vol] 9.0 mg/dL Normal 8.8-10.0 [facility] Comment on above: Performed By: #### L AB113, LAB17, [id number] ####Diving Supervisor: JORGE A MALDONADO ([phone])[facility] ([facility])[address] [place] [address] [place] Chloride [Moles/Vol] 105 mmol/L Normal 98-107 [facility] Comment on above: Performed By: #### L AB113, LAB17, YED971 ####Diving Supervisor: JORGE A MALDONADO ([phone])[facility])[address] [place] [address] CO2 [Moles/Vol] 27 mmol/L Normal 23-31 [facility] Comment on above: Performed By: #### L AB113, LAB17, LMC882 ####Diving Supervisor: JORGE A MALDONADO ([phone])[facility])[address] [place] [address] Creatinine [Mass/Vol] 1.94 mg/dL High 0.72-1.25 [facility] Comment on above: Performed By: #### L AB113, LAB17, ASY930 ####Diving Supervisor: JORGE A MALDONADO ([phone])[facility])[address] [place] [address] GLOMERULAR FILTRATION RATE ML/MIN/1.73 SQ M.PREDICTED 33.3 mL/min/1.73m*2 Low >60.0 [facility] Comment on above: Result Comment: Calc ulation based on the Chronic Kidney Disease Epidemiology Collaboration (CKD-EPI) equation refit without adjustment for race Performed By: #### L AB113, LAB17, AMX954 ####Diving Supervisor: JORGE A MALDONADO ([phone])[facility])[address] [place] [address] Glucose [Mass/Vol] 130 mg/dL High 82-115 [facility] Comment on above: Performed By: #### L AB113, LAB17, [id number] ####Diving Supervisor: JORGE A MALDONADO ([phone])[facility])[address] [place] [address] Potassium [Moles/Vol] 3.6 mmol/L Normal 3.5-5.1 [facility] Comment on above: Result Comment: [facility] potassium values may be up to 0.5 mmol/L lower than serum values. Performed By: #### L AB113, LAB17, [id number] ####Diving Supervisor: JORGE A MALDONADO ([phone])[facility] ([facility])[address] [place] [address] Protein [Mass/Vol] 6.5 g/dL Normal 6.4-8.3 [facility] Comment on above: Performed By: #### L AB113, LAB17, [id number] ####Diving Supervisor: JORGE A MALDONADO ([phone])[facility] ([facility])[address] [place] [address] Sodium [Moles/Vol] 140 mmol/L Normal 136-145 [facility] Comment on above: Performed By: #### L AB113, LAB17, [id number] ####Diving Supervisor: JORGE A MALDONADO ([phone])[facility] ([facility])[address] [place] [address] Urea nitrogen [Mass/Vol] 30 mg/dL High 9-23 [facility] Comment on above: Performed By: #### L AB113, LAB17, [id number] ####Diving Supervisor: JORGE A MALDONADO ([phone])[facility] ([facility])[address] [place] [address] Calcium.ionized [Moles/Vol]o n 01-31-2025 Calcium.ionized (Bld) [Moles/Vol] 4.6 mg/dL 4.30 - 5.20 mg/dL [facility] Interpretation and review of laboratory results Normal [facility] PH, IONIZED CALCIUM 7.37 7.31 - 7.46 [facility] Calcium.ionized [Moles/Vol]O rdered By: Lev Milian on 01-31-2025 Calcium.ionized (Bld) [Moles/Vol] 4.1 mg/dL Low 4.30 - 5.20 mg/dL [facility] Interpretation and review of laboratory results Abnormal [facility] PH, IONIZED CALCIUM 7.43 7.31 - 7.46 [facility] Comprehensive metabolic 1998 panelon 01-31-2025 Albumin [Mass/Vol] 3.5 g/dL 3.4 - 4.8 g/dL [facility] ALP [Catalytic activity/Vol] 106 U/L 40 - 150 U/L [facility] ALT [Catalytic activity/Vol] 14 U/L NINF - 40 U/L [facility] Anion gap [Moles/Vol] 14 mmol/L High 3 - 13 mmol/L [facility] AST [Catalytic activity/Vol] 28 U/L NINF - 34 U/L [facility] Bilirubin [Mass/Vol] 1.6 mg/dL High NINF - 1.2 mg/dL [facility] Calcium [Mass/Vol] 9.6 mg/dL 8.8 - 10. 0 mg/dL [facility] Chloride [Moles/Vol] 103 mmol/L 98 - 10 7 mmol/L [facility] CO2 [Moles/Vol] 23 mmol/L 23 - 31 mmol/L [facility] Creatinine [Mass/Vol] 1.88 mg/dL High 0.72 - 1.25 mg/dL [facility] GFR/1.73 sq M.predicted (S/P/Bld) [Vol rate/Area] 34.6 mL/min Low - PINF [facility] Comment on above: Calculation based on the Chronic Kidney Disease Epidemiology Collaboration (CKD-EPI) equation refit without adjustment for race Glucose [Mass/Vol] 121 mg/dL High 82 - 115 mg/dL [facility] Interpretation and review of laboratory results Abnormal [facility] Potassium [Moles/Vol] 4 mmol/L 3.5 - 5.1 mmol/L [facility] Comment on above: Plasma potassium erika ues may be up to 0.5 mmol/L lower than serum values. Protein [Mass/Vol] 6.6 g/dL 6.4 - 8.3 g/dL [facility] Sodium [Moles/Vol] 140 mmol/L 136 - 145 mmol/L [facility] Urea nitrogen [Mass/Vol] 31 mg/dL High 9 - 23 mg/d L [facility] Albumin [Mass/Vol] 3.3 g/dL Low 3.4 - 4.8 g/dL [facility] ALP [Catalytic activity/Vol] 97 U/L 40 - 150 U/L [facility] ALT [Catalytic activity/Vol] 11 U/L NINF - 40 U/L [facility] Anion gap [Moles/Vol] 8 mmol/L 3 - 13 mmol/L [facility] AST [Catalytic activity/Vol] 30 U/L NINF - 34 U/L [facility] Bilirubin [Mass/Vol] 1.5 mg/dL High NINF - 1.2 mg/dL [facility] Calcium [Mass/Vol] 9 mg/dL 8.8 - 10. 0 mg/dL [facility] Chloride [Moles/Vol] 105 mmol/L 98 - 10 7 mmol/L [facility] CO2 [Moles/Vol] 27 mmol/L 23 - 31 mmol/L [facility] Creatinine [Mass/Vol] 1.94 mg/dL High 0.72 - 1.25 mg/dL [facility] GFR/1.73 sq M.predicted (S/P/Bld) [Vol rate/Area] 33.3 mL/min Low - PINF [facility] Comment on above: Calculation based on the Chronic Kidney Disease Epidemiology Collaboration (CKD-EPI) equation refit without adjustment for race Glucose [Mass/Vol] 130 mg/dL High 82 - 115 mg/dL [facility] Potassium [Moles/Vol] 3.6 mmol/L 3.5 - 5.1 mmol/L [facility] Comment on above: Plasma potassium erika ues may be up to 0.5 mmol/L lower than serum values. Protein [Mass/Vol] 6.5 g/dL 6.4 - 8.3 g/dL [facility] Sodium [Moles/Vol] 140 mmol/L 136 - 145 mmol/L [facility] Urea nitrogen [Mass/Vol] 30 mg/dL High 9 - 23 mg/d L [facility] Laboratory - Chemistry and C hemistry - challengeon 01-31-2025 Glucose [Mass/Vol] 114 mg/dL High 70 - 100 mg/dL [facility] Magnesium [Mass/Vol] 2.2 mg/dL 1.6 - 2 .6 mg/dL [facility] Glucose [Mass/Vol] 121 mg/dL High 70 - 100 mg/dL [facility] Magnesium [Mass/Vol] 2.2 mg/dL 1.6 - 2 .6 mg/dL [facility] Glucose [Mass/Vol] 124 mg/dL High 70 - 100 mg/dL [facility] Glucose [Mass/Vol] 141 mg/dL High 70 - 100 mg/dL [facility] MAGNESIUMon 01-31-2025 Magnesium [Mass/Vol] 2.2 mg/dL Normal 1.6-2.6 [facility] Comment on above: Result Comment: MIO R COMMENTS: Higher values can be expected in females during menses. Performed By: #### L AB17, [id number], [id number] ####Diving Supervisor: JORGE A MALDONADO ([phone])[facility] ([facility])[address] [place] [address] Magnesium [Mass/Vol] 2.2 mg/dL Normal 1.6-2.6 [facility] Comment on above: Result Comment: MIO Klein COMMENTS: Higher values can be expected in females during menses. Performed By: #### L AB113, LAB17, [id number] ####Diving Supervisor: JORGE A MALDONADO ([phone])[facility] ([facility])[address] [place] [address] Magnesium [Mass/Vol]on 01-31 Higher values can be expected in females during menses. [facility] Interpretation and review of laboratory results Normal [facility] Higher values can be expected in females during menses. [facility] No Panel Informationon 01-31 Interpretation and review of laboratory results Abnormal [facility] Performed by: [place] [address] CLIA ID: [id number] [facility] Interpretation and review of laboratory results Normal [facility] Interpretation and review of laboratory results Abnormal [facility] Performed by: [place] [address] CLIA ID: [id number] [facility] Interpretation and review of laboratory results Abnormal [facility] Interpretation and review of laboratory results Abnormal [facility] Performed by: [place] [address] CLIA ID: [id number] [facility] Interpretation and review of laboratory results Abnormal [facility] Performed by: [address] [address] CLIA ID: [id number] [facility] Nursing Noteon 01-31-2025 Nursing Note Wound Care [...] care given). Prevention Measures in place, including: Apex sheet with pillows (in place), Pt declined Bilateral foam heel protectors, off loading heels on pillows, Sacral foam and, Zinc/Moisture Barrier ointment. Moisture absorbant pad (in place), Bed Alarm On. Skin Care precaution order set in place d/t Simon score 18 on 01/28/2025. Dietitian consult in place. PT consult NA Simon > 3. D/W sandwich peddler skin assessment, preventions, and interventions implemented. Will continue to follow pt. Please Voicera for any questions or concerns. Saundra Vinson, RN, BSN Normal [facility] PHOSPHORUSon 01-31-2025 Phosphate [Mass/Vol] 2.3 mg/dL Normal 2.3-4.7 [facility] Comment on above: Performed By: #### L AB17, [id number], [id number] ####Diving Supervisor: JORGE A MALDONADO ([phone])[address] Phosphate [Mass/Vol] 2.2 mg/dL Low 2.3-4.7 [facility] Comment on above: Performed By: #### L AB113, LAB17, [id number] ####Diving Supervisor: JORGE A MALDONADO ([phone])[facility])[address] [place] [address] Phosphate [Moles/Vol]on 01-18 Phosphate [Mass/Vol] 2.3 mg/dL 2.3 - 4 .7 mg/dL [facility] Phosphate [Mass/Vol] 2.2 mg/dL Low 2.3 - 4 .7 mg/dL [facility] US Heart TransthoracicOrdere d By: Jarret Weldon on 01-31-2025 Aortic Sinus Valsalva 3.8 cm [facility] Work Phone: [phone] Aortic Sinus Valsalva Index 1.93 cm/m2 [facility] Work Phone: Aortic valve Mean systole pressure gradient by US.doppler derived full Bernoulli 3 mmHg [facility] Work Phone: Aortic valve Orifice area by US 4.5 cm2 [facility] Work Phone: Aortic valve Peak systolic flow by US.doppler 0.8 m/s [facility] Work Phone: AR Max Velocity PISA 3.6 m/s [facility] Work Phone: [phone] AR PHT 483.6 ms [facility] Work Phone: Ascending Aorta 4.3 cm [facility] Work Phone: Ascending Aorta Index 2.18 cm/m2 [facility] Work Phone: AV Area by Peak Velocity 1.5 cm2 [facility] Work Phone: AV Area by Planimetry 1.7 cm2 [facility] Work Phone: [phone] AV Area by VTI 1.4 cm2 [facility] Work Phone: AV Peak Gradient 6 mmHg [facility] Work Phone: AV Peak Velocity 1.2 m/s [facility] Work Phone: AV Velocity Ratio 0.33 [facility] Work Phone: AV VTI 26.1 cm [facility] Work Phone: BRITTA/BSA 0.86 cm2/m2 [facility] Work Phone: BRITTA/BSA Peak Velocity 0.8 cm2/m2 [facility] Work Phone: BRITTA/BSA VTI 0.7 cm2/m2 [facility] Work Phone: E/E' Septal 18.6 [facility] Work Phone: Est. RA Pressure 15 mmHg [facility] Work Phone: [phone] Fractional Shortening 2D 6 % 28 - 44 % [facility] Work Phone: [phone] Interpretation and review of laboratory results Abnormal [facility] Work Phone: [phone] IVC Diameter 2.7 cm [facility] [employer] Phone: [phone] IVSd 1.1 cm Abnormal 0.6 - 1.0 cm [facility] Work Phone: [phone] LA Diameter 5.6 cm [facility] Work Phone: [phone] LA Size Index 2.84 cm/m2 [facility] Work Phone: [phone] LA Volume 2C 97 mL Abnormal 18 - 58 mL [facility] [employer] Phone: LA Volume 4C 110 mL Abnormal 18 - 58 mL [facility] [employer] Phone: [phone] LA Volume A/L [address] [facility] Work Phone: [phone] LA Volume BP 109 mL Abnormal 18 - 58 mL [facility] [employer] Phone: [phone] LA Volume Index 2C 49 mL/m2 Abnormal 16 - 34 mL/m2 [facility] [employer] Phone: [phone] LA Volume Index 4C 56 mL/m2 Abnormal 16 - 34 mL/m2 [facility] [employer] Phone: [phone] LA Volume Index A/L 58 mL/m2 16 - 34 mL/m2 [facility] [employer] Phone: [phone] LA Volume Index BP 55 ml/m2 Abnormal 16 - 34 ml/m2 [facility] [employer] Phone: [phone] Left ventricular Ejection fraction by US.2D+Calculated by biplane method of disks 12 % Abnormal 55 - 100 % [facility] Work Phone: [phone] LV E' Septal Velocity 5 cm/s [facility] Work Phone: [phone] LV EDV A2C 212 mL [facility] Work Phone: [phone] LV EDV A4C 181 mL [facility] [employer] Phone: [phone] LV EDV BP 197 mL Abnormal 67 - 155 mL [facility] Work Phone: LV EDV Index A2C 108 mL/m2 [facility] Work Phone: LV EDV Index A4C 92 mL/m2 [facility] Work Phone: LV EDV Index BP 100 mL/m2 [facility] Work Phone: LV Ejection Fraction A2C 16 % [facility] Work Phone: LV Ejection Fraction A4C 9 % [facility] Work Phone: LV ESV A2C 178 mL [facility] Work Phone: LV ESV A4C 165 mL [facility] Work Phone: LV ESV BP 173 mL Abnormal 22 - 58 mL [facility] Work Phone: LV ESV Index A2C 90 mL/m2 [facility] Work Phone: LV ESV Index A4C 84 mL/m2 [facility] Work Phone: LV ESV Index BP 88 mL/m2 [facility] Work Phone: LV Mass 2D 234.8 g Abnormal 88 - 224 g [facility] Work Phone: LV Mass 2D Index 119.2 g/m2 Abnormal 49 - 115 g/m2 [facility] Work Phone: LV RWT Ratio 0.41 [facility] Work Phone: LVIDd 5.4 cm 4.2 - 5.9 cm [facility] Work Phone: LVIDd Index 2.74 cm/m2 [facility] Work Phone: LVIDs 5.1 cm [facility] Work Phone: LVIDs Index 2.59 cm/m2 [facility] Work Phone: LVOT Cardiac Output 2.7 liter/minute [facility] Work Phone: LVOT Diameter 2.[address] [facility] Work Phone: LVOT Mean Gradient 0 mmHg [facility] Work Phone: LVOT Peak Gradient 1 mmHg [facility] Work Phone: LVOT Peak Velocity 0.4 m/s [facility] Work Phone: LVOT Stroke Volume Index 19.5 mL/m2 [facility] Work Phone: LVOT SV 38.4 ml [facility] Work Phone: LVOT VTI 8.5 cm [facility] Work Phone: LVOT:AV VTI Index 0.33 [facility] ealth Work Phone: LVPWd 1.1 cm Abnormal 0.6 - 1.0 cm [facility] Work Phone: MV A Velocity 0.36 m/s [facility] Work Phone: MV E Velocity 0.93 m[facility]s [facility] Work Phone: MV E Wave Deceleration Time 185.6 ms [facility] Work Phone: MV E/A 2.58 [facility] Work Phone: RA Area 4C 144.7 mL [facility] Work Phone: RV Basal Dimension 4.9 cm [facility] Work Phone: RV Free Wall Peak S' 11 cm/s [facility] Work Phone: RV Longitudinal Dimension 7.3 cm [facility] Work Phone: RV Mid Dimension 3.2 cm [facility] Work Phone: RVSP 50 mmHg [facility] Work Phone: TAPSE 2 cm 1.7 cm [facility] Work Phone: TR Max Velocity 2.94 m/s [facility] Work Phone: TR Peak Gradient 35 mmHg [facility] Work Phone: TR Peak Velocity PISA 2.5 m/s [facility] Work Phone: TR VTI 82.7 cm [facility] Work Phone: TV EROA 0.4 cm2 [email or web address] Work Phone: TV Nyquist Velocity 42 cm/s [email or web address] Work Phone: [employer] Work Phone: [facility] Transthoracicon Left Ventricle: Left ventricle size is [...] brakes on, call light in reach. Normal [facility] CALCIUM, IONIZEDon CALCIUM IONIZED 4.30 mg/dL Normal 4.30-5.20 [facility] Comment on above: Performed By: #### L AB54 ####Diving Supervisor: JORGE A MALDONADO ([phone])[address] PH, IONIZED CALCIUM 7.39 Normal 7.31-7.46 [facility] Comment on above: Performed By: #### L AB54 ####Diving Supervisor: JORGE A MALDONADO ([phone])[facility])[address] [place] [address] CALCIUM IONIZED 4.50 mg/dL Normal 4.30-5.20 [facility] Comment on above: Performed By: #### L AB54 ####Diving Supervisor: JORGE A MALDONADO ([phone])[address] PH, IONIZED CALCIUM 7.35 Normal 7.31-7.46 [facility] Comment on above: Performed By: #### L AB54 ####Diving Supervisor: JORGE A MALDONADO ([phone])[address] CBC (HEMOGRAM)on 01-30-2025 Erythrocyte distribution width (RBC) [Ratio] 19.5 % High 11.5-15.0 [facility] Comment on above: Performed By: #### L AB294 ####Diving Supervisor: JORGE A MALDONADO ([phone])[place] [address] [place] Hematocrit (Bld) [Volume fraction] 45.8 % Normal 40.0-52.0 [facility] Comment on above: Performed By: #### L AB294 ####Diving Supervisor: JORGE A MALDONADO ([phone])[facility])[address] [place] [address] Hemoglobin (Bld) [Mass/Vol] 14.9 g/dL Normal 13.0-18.0 [facility] Comment on above: Performed By: #### L AB294 ####Diving Supervisor: JORGE A MALDONADO ([phone])[facility])[address] [place] [address] MCH (RBC) [Entitic mass] 28.9 pg Normal 26.0-34.0 [facility] Comment on above: Performed By: #### L AB294 ####Diving Supervisor: JORGE A MALDONADO ([phone])[facility])[address] [place] [address] MCHC 32.5 % Normal 30.5-36.0 [facility] Comment on above: Performed By: #### L AB294 ####Diving Supervisor: JORGE A MALDONADO ([phone])[facility] ([facility])[address] [place] [address] MCV (RBC) [Entitic vol] 88.8 fL Normal 77.0-99.0 [facility] Comment on above: Performed By: #### L AB294 ####Diving Supervisor: JORGE A MALDONADO ([phone])[facility])[address] [place] [address] Platelet mean volume (Bld) [Entitic vol] 10.6 fL Normal 9.0-12.7 [facility] Comment on above: Performed By: #### L AB294 ####Diving Supervisor: JORGE A MALDONADO ([phone])[facility])[address] [place] [address] Platelets (Bld) [#/Vol] 205 10*3/uL Normal 140-440 [facility] Comment on above: Performed By: #### L AB294 ####Diving Supervisor: JORGE A MALDONADO ([phone])[address] RBC (Bld) [#/Vol] 5.16 10*6/uL Normal 4.40-5.90 [facility] Comment on above: Performed By: #### L AB294 ####Diving Supervisor: JORGE A MALDONADO ([phone])[facility])[address] [place] [address] WBC (Bld) [#/Vol] 5.0 10*3/uL Normal 3.6-10.7 [facility] Comment on above: Performed By: #### L AB294 ####Diving Supervisor: JORGE A MALDONADO ([phone])[address] CBC panel Auto (Bld)on 01-30 Erythrocyte distribution width (RBC) [Ratio] 19.5 % High 11.5 - 15.0 % [facility] Hematocrit (Bld) [Volume fraction] 45.8 % 40.0 - 52.0 % [facility] Hemoglobin (Bld) [Mass/Vol] 14.9 g/dL 13.0 - 18.0 g/dL [facility] Interpretation and review of laboratory results Abnormal [facility] MCH (RBC) [Entitic mass] 28.9 pg 26. 0 - 34.0 pg [facility] MCHC (RBC) [Mass/Vol] 32.5 % 30.5 - 36.0 % [facility] MCV (RBC) [Entitic vol] 88.8 fL 77.0 - 99.0 fL [facility] Platelet mean volume (Bld) [Entitic vol] 10.6 fL 9.0 - 12.7 fL [facility] Platelets (Bld) [#/Vol] 205 10*3/uL 140 - 440 10*3/uL [facility] RBC (Bld) [#/Vol] 5.16 10*6/uL 4.40 - 5.9 0 10*6/uL [facility] WBC (Bld) [#/Vol] 5 10*3/uL 3.6 - 10.7 10*3/uL [facility] METABOLIC PANE Greg 01-30-2025 Albumin [Mass/Vol] 3.5 g/dL Normal 3.4-4.8 [facility] Comment on above: Performed By: #### L AB17, [id number], [id number] ####Diving Supervisor: JORGE A MALDONADO ([phone])[facility] ([facility])[address] [place] [address] ALP [Catalytic activity/Vol] 103 U/L Normal 40-150 [facility] Comment on above: Performed By: #### L AB17, [id number], [id number] ####Diving Supervisor: JORGE A MALDONADO ([phone])[facility] ([facility])[address] [place] [address] ALT [Catalytic activity/Vol] 12 U/L Normal <40 [facility] Comment on above: Performed By: #### L AB17, [id number], [id number] ####Diving Supervisor: JORGE A MALDONADO ([phone])[facility] ([facility])[address] [place] [address] Anion gap [Moles/Vol] 14 mmol/L High 3-13 [facility] Comment on above: Performed By: #### L AB17, [id number], [id number] ####Diving Supervisor: JORGE A MALDONADO ([phone])[facility] ([facility])[address] [place] [address] AST [Catalytic activity/Vol] 27 U/L Normal <34 [facility] Comment on above: Performed By: #### L AB17, [id number], [id number] ####Diving Supervisor: JORGE A MALDONADO ([phone])[facility] ([facility])[address] [place] [address] Bilirubin [Mass/Vol] 1.5 mg/dL High <1.2 [facility] Comment on above: Performed By: #### L AB17, [id number], [id number] ####Diving Supervisor: JORGE A MALDONADO ([phone])[facility] ([facility])[address] [place] [address] Calcium [Mass/Vol] 9.1 mg/dL Normal 8.8-10.0 [facility] Comment on above: Performed By: #### L AB17, [id number], [id number] ####Diving Supervisor: JORGE A MALDONADO ([phone])[facility] ([facility])[address] [place] [address] Chloride [Moles/Vol] 106 mmol/L Normal 98-107 [facility] Comment on above: Performed By: #### L AB17, [id number], [id number] ####Diving Supervisor: JORGE A MALDONADO ([phone])[facility] ([facility])[address] [place] [address] CO2 [Moles/Vol] 21 mmol/L Low 23-31 [facility] Comment on above: Performed By: #### Russell AB17, [id number], [id number] ####Diving Supervisor: JORGE A MALDONADO ([phone])[facility] ([facility])[address] [place] [address] Creatinine [Mass/Vol] 1.95 mg/dL High 0.72-1.25 [facility] Comment on above: Performed By: #### Russell AB17, [id number], [id number] ####Diving Supervisor: JORGE A MALDONADO ([phone])[facility] ([facility])[address] [place] [address] [place] GLOMERULAR FILTRATION RATE ML/MIN/1.73 SQ M.PREDICTED 33.1 mL/min/1.73m*2 Low >60.0 [facility] Comment on above: Result Comment: Calc ulation based on the Chronic Kidney Disease Epidemiology Collaboration (CKD-EPI) equation refit without adjustment for race Performed By: #### L AB17, [id number], [id number] ####Diving Supervisor: JORGE A MALDONADO ([phone])[facility] ([facility])[address] [place] [address] [place] Glucose [Mass/Vol] 144 mg/dL High 82-115 [facility] Comment on above: Performed By: #### L AB17, VCL067, [id number] ####Diving Supervisor: JORGE A [phone])[facility] ([facility])[address] [place] [address] Potassium [Moles/Vol] 3.6 mmol/L Normal 3.5-5.1 [facility] Comment on above: Result Comment: [facility] potassium values may be up to 0.5 mmol/L lower than serum values. Performed By: #### L AB17, YVD611, [id number] ####Diving Supervisor: JORGE A MALDONADO ([phone])[facility] ([facility])[address] [place] [address] Protein [Mass/Vol] 6.7 g/dL Normal 6.4-8.3 [facility] Comment on above: Performed By: #### L AB17, [id number], [id number] ####Diving Supervisor: JORGE A MALDONADO ([phone])[facility] ([facility])[address] [place] [address] Sodium [Moles/Vol] 141 mmol/L Normal 136-145 [facility] Comment on above: Performed By: #### L AB17, [id number], CIV679 ####Diving Supervisor: JORGE A MALDONADO ([phone])[facility] ([facility])[address] [place] [address] Urea nitrogen [Mass/Vol] 32 mg/dL High 9-23 [facility] Comment on above: Performed By: #### L AB17, [id number], [id number] ####Diving Supervisor: JORGE A MALDONADO ([phone])[facility])[address] [place] [address] Albumin [Mass/Vol] 3.6 g/dL Normal 3.4-4.8 [facility] Comment on above: Performed By: #### L AB103, LAB17, NST101 ####Diving Supervisor: JORGE A MALDONADO ([phone])[facility])[address] [place] [address] ALP [Catalytic activity/Vol] 105 U/L Normal 40-150 [facility] Comment on above: Performed By: #### L AB103, LAB17, [id number] ####Diving Supervisor: JORGE A MALDONADO ([phone])[facility] ([facility])[address] [place] [address] ALT [Catalytic activity/Vol] 13 U/L Normal <40 [facility] Comment on above: Performed By: #### L AB103, LAB17, XSS176 ####Diving Supervisor: JORGE A MALDONADO ([phone])[facility] ([facility])[address] [place] [address] Anion gap [Moles/Vol] 14 mmol/L High 3-13 [facility] Comment on above: Performed By: #### L AB103, LAB17, [id number] ####Diving Supervisor: JORGE A MALDONADO ([phone])[facility] ([facility])[address] [place] [address] AST [Catalytic activity/Vol] 26 U/L Normal <34 [facility] Comment on above: Performed By: #### Russell AB103, LAB17, [id number] ####Diving Supervisor: JORGE A MALDONADO ([phone])[facility] ([facility])[address] [place] [address] Bilirubin [Mass/Vol] 1.6 mg/dL High <1.2 [facility] Comment on above: Performed By: #### L AB103, LAB17, TOP443 ####Diving Supervisor: JORGE A MALDONADO ([phone])[facility] ([facility])[address] [place] [address] Calcium [Mass/Vol] 9.4 mg/dL Normal 8.8-10.0 [facility] Comment on above: Performed By: #### L AB103, LAB17, [id number] ####Diving Supervisor: JORGE A MALDONADO ([phone])[facility] ([facility])[address] [place] [address] [place] Chloride [Moles/Vol] 106 mmol/L Normal 98-107 [facility] Comment on above: Performed By: #### L AB103, LAB17, SED764 ####Diving Supervisor: JORGE A MALDONADO ([phone])[facility] ([facility])[address] [place] [address] [place] CO2 [Moles/Vol] 21 mmol/L Low 23-31 [facility] Comment on above: Performed By: #### L AB103, LAB17, TUG459 ####Diving Supervisor: JORGE A MALDONADO ([phone])[facility])[address] [place] [address] Creatinine [Mass/Vol] 1.78 mg/dL High 0.72-1.25 [facility] Comment on above: Performed By: #### L AB103, LAB17, DST093 ####Diving Supervisor: JORGE A MALDONADO ([phone])[facility])[address] [place] [address] GLOMERULAR FILTRATION RATE ML/MIN/1.73 SQ M.PREDICTED 36.9 mL/min/1.73m*2 Low >60.0 [facility] Comment on above: Result Comment: Calc ulation based on the Chronic Kidney Disease Epidemiology Collaboration (CKD-EPI) equation refit without adjustment for race Performed By: #### L AB103, LAB17, YKQ114 ####Diving Supervisor: JORGE A MALDONADO ([phone])[facility])[address] [place] [address] Glucose [Mass/Vol] 128 mg/dL High 82-115 [facility] Comment on above: Performed By: #### L AB103, LAB17, MFQ756 ####Diving Supervisor: JORGE A MALDONADO ([phone])[facility])[address] [place] [address] [place] Potassium [Moles/Vol] 3.6 mmol/L Normal 3.5-5.1 [facility] Comment on above: Result Comment: [facility] potassium values may be up to 0.5 mmol/L lower than serum values. Performed By: #### L AB103, LAB17, [id number] ####Diving Supervisor: JORGE A MALDONADO ([phone])[facility])[address] [place] [address] Protein [Mass/Vol] 6.9 g/dL Normal 6.4-8.3 [facility] Comment on above: Performed By: #### L AB103, LAB17, FRO707 ####Diving Supervisor: JORGE A MALDONADO ([phone])[facility] ([facility])[address] [place] [address] Sodium [Moles/Vol] 141 mmol/L Normal 136-145 [facility] Comment on above: Performed By: #### L AB103, LAB17, ODK251 ####Diving Supervisor: JORGE A MALDONADO ([phone])[facility] ([facility])[address] [place] [address] Urea nitrogen [Mass/Vol] 32 mg/dL High 9-23 [facility] Comment on above: Performed By: #### Russell AB103, LAB17, JKC720 ####Diving Supervisor: JORGE A MALDONADO ([phone])[facility] ([facility])[address] [place] [address] Calcium.ionized [Moles/Vol]o n 01-30-2025 Calcium.ionized (Bld) [Moles/Vol] 4.3 mg/dL 4.30 - 5.20 mg/dL [facility] Interpretation and review of laboratory results Normal [facility] PH, IONIZED CALCIUM 7.39 7.31 - 7.46 [facility] Calcium.ionized (Bld) [Moles/Vol] 4.5 mg/dL 4.30 - 5.20 mg/dL [facility] Interpretation and review of laboratory results Normal [facility] PH, IONIZED CALCIUM 7.35 7.31 - 7.46 [facility] Comprehensive metabolic 1998 panelon 01-30-2025 Albumin [Mass/Vol] 3.5 g/dL 3.4 - 4.8 g/dL [facility] ALP [Catalytic activity/Vol] 103 U/L 40 - 150 U/L [facility] ALT [Catalytic activity/Vol] 12 U/L NINF - 40 U/L [facility] Anion gap [Moles/Vol] 14 mmol/L High 3 - 13 mmol/L [facility] AST [Catalytic activity/Vol] 27 U/L NINF - 34 U/L [facility] Bilirubin [Mass/Vol] 1.5 mg/dL High NINF - 1.2 mg/dL [facility] Calcium [Mass/Vol] 9.1 mg/dL 8.8 - 10. 0 mg/dL [facility] Chloride [Moles/Vol] 106 mmol/L 98 - 10 7 mmol/L [facility] CO2 [Moles/Vol] 21 mmol/L Low 23 - 31 mmol/L [facility] Creatinine [Mass/Vol] 1.95 mg/dL High 0.72 - 1.25 mg/dL [facility] GFR/1.73 sq M.predicted (S/P/Bld) [Vol rate/Area] 33.1 mL/min Low - PINF [facility] Comment on above: Calculation based on the Chronic Kidney Disease Epidemiology Collaboration (CKD-EPI) equation refit without adjustment for race Glucose [Mass/Vol] 144 mg/dL High 82 - 115 mg/dL [facility] Interpretation and review of laboratory results Abnormal [facility] Potassium [Moles/Vol] 3.6 mmol/L 3.5 - 5.1 mmol/L [facility] Comment on above: Plasma potassium erika ues may be up to 0.5 mmol/L lower than serum values. Protein [Mass/Vol] 6.7 g/dL 6.4 - 8.3 g/dL [facility] Sodium [Moles/Vol] 141 mmol/L 136 - 145 mmol/L [facility] Urea nitrogen [Mass/Vol] 32 mg/dL High 9 - 23 mg/d L [facility] Albumin [Mass/Vol] 3.6 g/dL 3.4 - 4.8 g/dL [facility] ALP [Catalytic activity/Vol] 105 U/L 40 - 150 U/L [facility] ALT [Catalytic activity/Vol] 13 U/L NINF - 40 U/L [facility] Anion gap [Moles/Vol] 14 mmol/L High 3 - 13 mmol/L [facility] AST [Catalytic activity/Vol] 26 U/L NINF - 34 U/L [facility] Bilirubin [Mass/Vol] 1.6 mg/dL High NINF - 1.2 mg/dL [facility] Calcium [Mass/Vol] 9.4 mg/dL 8.8 - 10. 0 mg/dL [facility] Chloride [Moles/Vol] 106 mmol/L 98 - 10 7 mmol/L [facility] CO2 [Moles/Vol] 21 mmol/L Low 23 - 31 mmol/L [facility] Creatinine [Mass/Vol] 1.78 mg/dL High 0.72 - 1.25 mg/dL [facility] GFR/1.73 sq M.predicted (S/P/Bld) [Vol rate/Area] 36.9 mL/min Low - PINF [facility] Comment on above: Calculation based on the Chronic Kidney Disease Epidemiology Collaboration (CKD-EPI) equation refit without adjustment for race Glucose [Mass/Vol] 128 mg/dL High 82 - 115 mg/dL [facility] Interpretation and review of laboratory results Abnormal [facility] Potassium [Moles/Vol] 3.6 mmol/L 3.5 - 5.1 mmol/L [facility] Comment on above: Plasma potassium erika ues may be up to 0.5 mmol/L lower than serum values. Protein [Mass/Vol] 6.9 g/dL 6.4 - 8.3 g/dL [facility] Sodium [Moles/Vol] 141 mmol/L 136 - 145 mmol/L [facility] Urea nitrogen [Mass/Vol] 32 mg/dL High 9 - 23 mg/d L [facility] Laboratory - Chemistry and C hemistry - challengeon 01-30-2025 Glucose [Mass/Vol] 145 mg/dL High 70 - 100 mg/dL [facility] Glucose [Mass/Vol] 156 mg/dL High 70 - 100 mg/dL [facility] Magnesium [Mass/Vol] 2 mg/dL 1.6 - 2 .6 mg/dL [facility] Magnesium [Mass/Vol] 2.1 mg/dL 1.6 - 2 .6 mg/dL [facility] Glucose [Mass/Vol] 119 mg/dL High 70 - 100 mg/dL [facility] Glucose [Mass/Vol] 92 mg/dL 70 - 100 mg/dL [facility] MAGNESIUMon 01-30-2025 Magnesium [Mass/Vol] 2.0 mg/dL Normal 1.6-2.6 [facility] Comment on above: Result Comment: MIO Klein COMMENTS: Higher values can be expected in females during menses. Performed By: #### L AB17, APK146, CQH127 ####Diving Supervisor: JORGE A MALDONADO ([phone])[facility] ([address] Magnesium [Mass/Vol] 2.1 mg/dL Normal 1.6-2.6 [facility] Comment on above: Result Comment: ORDE R COMMENTS: Higher values can be expected in females during menses. Performed By: #### L AB103, LAB17, [id number] ####Diving Supervisor: JORGE A MALDONADO ([phone])[facility] ([facility])[address] [place] [address] Magnesium [Mass/Vol]on 01-30 Higher values can be expected in females during menses. [facility] Higher values can be expected in females during menses. [facility] No Panel Informationon 01-30 Interpretation and review of laboratory results Abnormal [facility] Performed by: [address] [address] CLIA ID: [id number] [facility] Interpretation and review of laboratory results Abnormal [facility] Performed by: [address] [address] CLIA ID: [id number] [facility] Interpretation and review of laboratory results Normal [facility] Interpretation and review of laboratory results Normal [facility] Interpretation and review of laboratory results Abnormal [facility] Performed by: [address] [address] CLIA ID: [id number] [facility] Interpretation and review of laboratory results Normal [facility] Performed by: [address] [address] CLIA ID: [id number] [facility] PHOSPHORUSon 01-30-2025 Phosphate [Mass/Vol] 2.5 mg/dL Normal 2.3-4.7 [facility] Comment on above: Performed By: #### L AB17, BBU171, BOQ927 ####Diving Supervisor: JORGE A MALDONADO ([phone])[facility] ([facility])[address] [place] [address] Phosphate [Mass/Vol] 2.5 mg/dL Normal 2.3-4.7 [facility] Comment on above: Performed By: #### L AB103, LAB17, HCR761 ####Diving Supervisor: JORGE A MALDONADO ([phone])[facility] ([facility])[address] [place] [address] Phosphate [Moles/Vol]on 01-18 Phosphate [Mass/Vol] 2.5 mg/dL 2.3 - 4 .7 mg/dL [facility] Phosphate [Mass/Vol] 2.5 mg/dL 2.3 - 4 .7 mg/dL [facility] Progress Noteon 01-30-2025 Progress Note Nutrition Assessment [...] On: Kcal/kg Weight Used for Energy Requirements: Yolyn Weight for Energy Calculation (kg): 67 kg Total Energy Requirements (kcals/day): 25-28 kcal/kg = 9273-7052 kcal Weight Used for Protein Requirements: Yolyn Weight in Kg Used for Protein Requirements: [...] kg (193 lb 9.6 oz) (standing 01/28) Yolyn Body Weight (lbs) (Calculated): 148 lbs Yolyn Body Weight (Kg) (Calculated): 67 kg % Yolyn Body Weight (Calculated): 127.8 % BMI (kg/m2) [...] soon to determine Aleksandra Pak RD Contact: [employer] chat or *[phone] [facility] 30on 01-29-2025 30 Problem: Knowledge Deficit Goal: [...] Free from fall injury Outcome: Progressing Normal [facility] 30 Problem: Knowledge Deficit Goal: Patient/family/careg iver [...] Free from fall injury Outcome: Progressing Normal [facility] BASIC METABOLIC PANELon 01-18 Anion gap [Moles/Vol] 10 mmol/L Normal 3-13 [facility] Comment on above: Performed By: #### L AB113, PIC150, LAB15 ####Diving Supervisor: JORGE A MALDONADO ([phone])[facility])[address] [place] [address] Calcium [Mass/Vol] 8.6 mg/dL Low 8.8-10.0 [facility] Comment on above: Performed By: #### L AB113, SKF391, LAB15 ####Diving Supervisor: JORGE A MALDONADO ([phone])[facility] ([facility])[address] [place] [address] Chloride [Moles/Vol] 109 mmol/L High 98-107 [facility] Comment on above: Performed By: #### L AB113, PGC638, LAB15 ####Diving Supervisor: JORGE A MALDONADO ([phone])[facility])[address] [place] [address] CO2 [Moles/Vol] 22 mmol/L Low 23-31 [facility] Comment on above: Performed By: #### L AB113, ZAE837, LAB15 ####Diving Supervisor: JORGE A MALDONADO ([phone])[facility])[address] [place] [address] Creatinine [Mass/Vol] 1.84 mg/dL High 0.72-1.25 [facility] Comment on above: Performed By: #### L AB113, CQL302, LAB15 ####Diving Supervisor: JORGE A MALDONADO ([phone])[facility])[address] [place] [address] GLOMERULAR FILTRATION RATE ML/MIN/1.73 SQ M.PREDICTED 35.5 mL/min/1.73m*2 Low >60.0 [facility] Comment on above: Result Comment: Calc ulation based on the Chronic Kidney Disease Epidemiology Collaboration (CKD-EPI) equation refit without adjustment for race Performed By: #### L AB113, UBF117, LAB15 ####Diving Supervisor: JORGE A MALDONADO ([phone])[facility])[address] [place] [address] Glucose [Mass/Vol] 74 mg/dL Low 82-115 [facility] Comment on above: Performed By: #### L AB113, [id number], LAB15 ####Diving Supervisor: JORGE A MALDONADO ([phone])[facility])[address] [place] [address] Potassium [Moles/Vol] 2.8 mmol/L Low 3.5-5.1 [facility] Comment on above: Result Comment: [facility] potassium values may be up to 0.5 mmol/L lower than serum values. Performed By: #### L AB113, [id number], LAB15 ####Diving Supervisor: JORGE A MALDONADO ([phone])[facility])[address] [place] [address] Sodium [Moles/Vol] 141 mmol/L Normal 136-145 [facility] Comment on above: Performed By: #### L AB113, PRC368, LAB15 ####Diving Supervisor: JORGE A MALDONADO ([phone])[facility])[address] [place] [address] Urea nitrogen [Mass/Vol] 36 mg/dL High 9-23 [facility] Comment on above: Performed By: #### L AB113, [id number], LAB15 ####Diving Supervisor: JORGE A MALDONADO ([phone])[facility] ([facility])[address] [place] [address] Basic metabolic 1998 panelOr dered By: Sol Adams on 01-29-2025 Anion gap [Moles/Vol] 10 mmol/L 3 - 13 mmol/L [facility] Calcium [Mass/Vol] 8.6 mg/dL Low 8.8 - 10. 0 mg/dL [facility] Chloride [Moles/Vol] 109 mmol/L High 98 - 10 7 mmol/L [facility] CO2 [Moles/Vol] 22 mmol/L Low 23 - 31 mmol/L [facility] Creatinine [Mass/Vol] 1.84 mg/dL High 0.72 - 1.25 mg/dL [facility] GFR/1.73 sq M.predicted (S/P/Bld) [Vol rate/Area] 35.5 mL/min Low - PINF [facility] Comment on above: Calculation based on the Chronic Kidney Disease Epidemiology Collaboration (CKD-EPI) equation refit without adjustment for race Glucose [Mass/Vol] 74 mg/dL Low 82 - 115 mg/dL [facility] Interpretation and review of laboratory results Abnormal [facility] Potassium [Moles/Vol] 2.8 mmol/L Low 3.5 - 5.1 mmol/L [facility] Comment on above: Plasma potassium erika ues may be up to 0.5 mmol/L lower than serum values. Sodium [Moles/Vol] 141 mmol/L 136 - 145 mmol/L [facility] Urea nitrogen [Mass/Vol] 36 mg/dL High 9 - 23 mg/d L [facility] CALCIUM, IONIZEDon CALCIUM IONIZED 4.30 mg/dL Normal 4.30-5.20 [facility] Comment on above: Performed By: #### L AB54 ####Diving Supervisor: JORGE A MALDONADO ([phone])[facility] ([facility])[address] [place] [address] PH, IONIZED CALCIUM 7.38 Normal 7.31-7.46 [facility] Comment on above: Performed By: #### L AB54 ####Diving Supervisor: JORGE A MALDONADO ([phone])[facility])[address] [place] [address] CALCIUM IONIZED 4.20 mg/dL Low 4.30-5.20 [facility] Comment on above: Performed By: #### L AB54 ####Diving Supervisor: JORGE A MALDONADO ([phone])[facility])[address] [place] [address] PH, IONIZED CALCIUM 7.38 Normal 7.31-7.46 [facility] Comment on above: Performed By: #### L AB54 ####Diving Supervisor: JORGE A MALDONADO ([phone])[facility])[address] [place] [address] CBC (HEMOGRAM)on 01-29-2025 Erythrocyte distribution width (RBC) [Ratio] 19.6 % High 11.5-15.0 [facility] Comment on above: Performed By: #### L AB294 ####Diving Supervisor: JORGE A MALDONADO ([phone])[address] Hematocrit (Bld) [Volume fraction] 46.3 % Normal 40.0-52.0 [facility] Comment on above: Performed By: #### L AB294 ####Diving Supervisor: JORGE A MALDONADO ([phone])[address] Hemoglobin (Bld) [Mass/Vol] 15.1 g/dL Normal 13.0-18.0 [facility] Comment on above: Performed By: #### L AB294 ####Diving Supervisor: JORGE A MALDONADO ([phone])[address] MCH (RBC) [Entitic mass] 28.7 pg Normal 26.0-34.0 [facility] Comment on above: Performed By: #### L AB294 ####Diving Supervisor: JORGE A MALDONADO ([phone])[facility] ([facility])[address] [place] [address] MCHC 32.6 % Normal 30.5-36.0 [facility] Comment on above: Performed By: #### L AB294 ####Diving Supervisor: JORGE A MALDONADO ([phone])[facility] ([facility])[address] [place] [address] MCV (RBC) [Entitic vol] 87.9 fL Normal 77.0-99.0 S [facility] Comment on above: Performed By: #### L AB294 ####Diving Supervisor: JORGE A MALDONADO ([phone])[facility])[address] [place] [address] Platelet mean volume (Bld) [Entitic vol] 10.3 fL Normal 9.0-12.7 [facility] Comment on above: Performed By: #### L AB294 ####Diving Supervisor: JORGE A MALDONADO ([phone])[facility] ([facility])[address] [place] [address] Platelets (Bld) [#/Vol] 199 10*3/uL Normal 140-440 [facility] Comment on above: Performed By: #### L AB294 ####Diving Supervisor: JORGE A MALDONADO ([phone])[facility])[address] [place] [address] RBC (Bld) [#/Vol] 5.27 10*6/uL Normal 4.40-5.90 [facility] Comment on above: Performed By: #### L AB294 ####Diving Supervisor: JORGE A MALDONADO ([phone])[facility])[address] [place] [address] WBC (Bld) [#/Vol] 5.3 10*3/uL Normal 3.6-10.7 [facility] Comment on above: Performed By: #### L AB294 ####Diving Supervisor: JORGE A MALDONADO ([phone])[facility] ([facility])[address] [place] [address] CBC W Auto Differential pane l (Bld)on 01-29-2025 Basophils (Bld) [#/Vol] 0.1 10*3/uL 0.0 - 0.2 10*3/uL [facility] Basophils/100 WBC (Bld) 1.5 % 0.0 - 2.0 % [facility] Eosinophils (Bld) [#/Vol] 0.2 10*3/uL 0.0 - 0.5 10*3/uL [facility] Eosinophils/100 WBC (Bld) 3.2 % 0.0 - 6.0 % [facility] Erythrocyte distribution width (RBC) [Ratio] 19 % High 11.5 - 15.0 % [facility] Hematocrit (Bld) [Volume fraction] 42.1 % 40.0 - 52.0 % [facility] Hemoglobin (Bld) [Mass/Vol] 13.7 g/dL 13.0 - 18.0 g/dL [facility] Immature granulocytes (Bld) [#/Vol] 0 10*3/uL NINF - 0.1 10*3/uL [facility] Immature granulocytes/100 WBC (Bld) 0.2 % 0.0 - 2.0 % [facility] Interpretation and review of laboratory results Abnormal [facility] Lymphocytes (Bld) [#/Vol] 1 10*3/uL 1.0 - 4.3 10*3/uL [facility] Lymphocytes/100 WBC (Bld) 20.6 % 15.0 - 45.0 % [facility] MCH (RBC) [Entitic mass] 28.5 pg 26. 0 - 34.0 pg [facility] MCHC (RBC) [Mass/Vol] 32.5 % 30.5 - 36.0 % [facility] MCV (RBC) [Entitic vol] 87.5 fL 77.0 - 99.0 fL [facility] Monocytes (Bld) [#/Vol] 0.4 10*3/uL 0.0 - 0.9 10*3/uL [facility] Monocytes/100 WBC (Bld) 8 % 5.0 - 13.0 % [facility] Neutrophils (Bld) [#/Vol] 3.2 10*3/uL 1.8 - 7.5 10*3/uL [facility] Neutrophils/100 WBC (Bld) 66.5 % 38.0 - 82.0 % [facility] Nucleated RBC/100 WBC (Bld) [Ratio] 0 % [facility] Platelet mean volume (Bld) [Entitic vol] 10.8 fL 9.0 - 12.7 fL [facility] Platelets (Bld) [#/Vol] 206 10*3/uL 140 - 440 10*3/uL [facility] RBC (Bld) [#/Vol] 4.81 10*6/uL 4.40 - 5.9 0 10*6/uL [facility] WBC (Bld) [#/Vol] 4.8 10*3/uL 3.6 - 10.7 10*3/uL [facility] CBC WITH AUTO DIFFERENTIALon 01-29-2025 Basophils (Bld) [#/Vol] 0.1 10*3/uL Normal 0.0-0.2 [facility] Comment on above: Performed By: #### L [id number] ####Diving Supervisor: JORGE A MALDONADO ([phone])[facility])[address] [place] [address] Basophils/100 WBC (Bld) 1.5 % Normal 0.0-2.0 [facility] [facility] Comment on above: Performed By: #### L [id number] ####Diving Supervisor: JORGE A MALDONADO ([phone])[facility])[address] [place] [address] Eosinophils (Bld) [#/Vol] 0.2 10*3/uL Normal 0.0-0.5 [facility] Comment on above: Performed By: #### L [id number] ####Diving Supervisor: JORGE A MALDONADO ([phone])[facility])[address] [place] [address] Eosinophils/100 WBC (Bld) 3.2 % Normal 0.0-6.0 [facility] Comment on above: Performed By: #### L [id number] ####Diving Supervisor: JORGE A [phone])[facility])[address] [place] [address] Erythrocyte distribution width (RBC) [Ratio] 19.0 % High 11.5-15.0 [facility] Comment on above: Performed By: #### L [id number] ####Diving Supervisor: JORGE A MALDONADO ([phone])[facility])[address] [place] [address] Hematocrit (Bld) [Volume fraction] 42.1 % Normal 40.0-52.0 [facility] Comment on above: Performed By: #### L [id number] ####Diving Supervisor: JORGE A MALDONADO ([phone])[facility])[address] [place] [address] Hemoglobin (Bld) [Mass/Vol] 13.7 g/dL Normal 13.0-18.0 [facility] Comment on above: Performed By: #### L [id number] ####Diving Supervisor: JORGE A MALDONADO ([phone])[facility])[address] [place] [address] IMMATURE GRANS % 0.2 % Normal 0.0-2.0 [facility] Comment on above: Performed By: #### L [id number] ####Diving Supervisor: JORGE A MALDONADO ([phone])[facility])[address] [place] [address] IMMATURE GRANS ABSOLUTE 0.0 10*3/uL Normal <0.1 [facility] Comment on above: Performed By: #### L [id number] ####Diving Supervisor: JORGE A MALDONADO ([phone])[facility])[address] [place] [address] Lymphocytes (Bld) [#/Vol] 1.0 10*3/uL Normal 1.0-4.3 [facility] Comment on above: Performed By: #### L [id number] ####Diving Supervisor: JORGE A MALDONADO ([phone])[facility])[address] [place] [address] Lymphocytes/100 WBC (Bld) 20.6 % Normal 15.0-45.0 [facility] Comment on above: Performed By: #### L [id number] ####Diving Supervisor: JORGE A MALDONADO ([phone])[facility])[address] [place] [address] MCH (RBC) [Entitic mass] 28.5 pg Normal 26.0-34.0 [facility] Comment on above: Performed By: #### L [id number] ####Diving Supervisor: JORGE A MALDONADO ([phone])[facility])[address] [place] [address] MCHC 32.5 % Normal 30.5-36.0 [facility] Comment on above: Performed By: #### L [id number] ####Diving Supervisor: JORGE A MALDONADO ([phone])[address] MCV (RBC) [Entitic vol] 87.5 fL Normal 77.0-99.0 [facility] Comment on above: Performed By: #### L [id number] ####Diving Supervisor: JORGE A MALDONADO ([phone])[address] Monocytes (Bld) [#/Vol] 0.4 10*3/uL Normal 0.0-0.9 [facility] Comment on above: Performed By: #### L [id number] ####Diving Supervisor: JORGE A MALDONADO ([phone])[address] Monocytes/100 WBC (Bld) 8.0 % Normal 5.0-13.0 [facility] Comment on above: Performed By: #### L [id number] ####Diving Supervisor: JORGE A MALDONADO ([phone])[address] NEUTROPHILS ABSOLUTE 3.2 10*3/uL Normal 1.8-7.5 [facility] Comment on above: Performed By: #### L [id number] ####Diving Supervisor: JORGE A MALDONADO ([phone])[facility])[address] [place] [address] Neutrophils/100 WBC (Bld) 66.5 % Normal 38.0-82.0 [facility] Comment on above: Performed By: #### L [id number] ####Diving Supervisor: JORGE A MALDONADO ([phone])[facility] ([facility])[address] [place] [address] NRBC 0.0 /100 WBCs Normal 0.0-2.0 [facility] Comment on above: Performed By: #### L [id number] ####Diving Supervisor: JORGE A MALDONADO ([phone])[facility] ([facility])[address] [place] [address] Platelet mean volume (Bld) [Entitic vol] 10.8 fL Normal 9.0-12.7 [facility] Comment on above: Performed By: #### L [id number] ####Diving Supervisor: JORGE A MALDONADO ([phone])[facility] ([facility])[address] [place] [address] Platelets (Bld) [#/Vol] 206 10*3/uL Normal 140-440 [facility] Comment on above: Performed By: #### L [id number] ####Diving Supervisor: JORGE A MALDONADO ([phone])[facility] ([facility])[address] [place] [address] RBC (Bld) [#/Vol] 4.81 10*6/uL Normal 4.40-5.90 [facility] Comment on above: Performed By: #### L [id number] ####Diving Supervisor: JORGE A MALDONADO ([phone])[facility] ([facility])[address] [place] [address] [place] WBC (Bld) [#/Vol] 4.8 10*3/uL Normal 3.6-10.7 [facility] Comment on above: Performed By: #### L [id number] ####Diving Supervisor: JORGE A MALDONADO ([phone])[facility] ([facility])[address] [place] [address] CBC panel Auto (Bld)on 01-29 Erythrocyte distribution width (RBC) [Ratio] 19.6 % High 11.5 - 15.0 % [facility] Hematocrit (Bld) [Volume fraction] 46.3 % 40.0 - 52.0 % [facility] Hemoglobin (Bld) [Mass/Vol] 15.1 g/dL 13.0 - 18.0 g/dL [facility] Interpretation and review of laboratory results Abnormal [facility] MCH (RBC) [Entitic mass] 28.7 pg 26. 0 - 34.0 pg [facility] MCHC (RBC) [Mass/Vol] 32.6 % 30.5 - 36.0 % [facility] MCV (RBC) [Entitic vol] 87.9 fL 77.0 - 99.0 fL [facility] Platelet mean volume (Bld) [Entitic vol] 10.3 fL 9.0 - 12.7 fL [facility] Platelets (Bld) [#/Vol] 199 10*3/uL 140 - 440 10*3/uL [facility] RBC (Bld) [#/Vol] 5.27 10*6/uL 4.40 - 5.9 0 10*6/uL [facility] WBC (Bld) [#/Vol] 5.3 10*3/uL 3.6 - 10.7 10*3/uL [facility] COMPREHENSIVE METABOLIC PANE Greg 01-29-2025 Albumin [Mass/Vol] 3.6 g/dL Normal 3.4-4.8 [facility] Comment on above: Performed By: #### L AB113, LAB17, [id number] ####Diving Supervisor: JORGE A MALDONADO ([phone])[facility])[address] [place] [address] ALP [Catalytic activity/Vol] 118 U/L Normal 40-150 [facility] Comment on above: Performed By: #### L AB113, LAB17, [id number] ####Diving Supervisor: JORGE A MALDONADO ([phone])[facility])[address] [place] [address] ALT [Catalytic activity/Vol] 13 U/L Normal <40 [facility] Comment on above: Performed By: #### L AB113, LAB17, [id number] ####Diving Supervisor: JORGE A MALDONADO ([phone])[facility] ([facility])[address] [place] [address] Anion gap [Moles/Vol] 11 mmol/L Normal 3-13 [facility] Comment on above: Performed By: #### L ABNakul, LAB17, [id number] ####Diving Supervisor: JORGE A MALDONADO ([phone])[facility] ([facility])[address] [place] [address] AST [Catalytic activity/Vol] 27 U/L Normal <34 [facility] Comment on above: Performed By: #### Russell ABNakul, LAB17, [id number] ####Diving Supervisor: JORGE A MALDONADO ([phone])[facility] ([facility])[address] [place] [address] Bilirubin [Mass/Vol] 1.4 mg/dL High <1.2 [facility] Comment on above: Performed By: #### Russell ABNakul, LAB17, [id number] ####Diving Supervisor: JORGE A MALDONADO ([phone])[facility] ([facility])[address] [place] [address] Calcium [Mass/Vol] 9.6 mg/dL Normal 8.8-10.0 [facility] Comment on above: Performed By: #### Russell ABNakul, LAB17, [id number] ####Diving Supervisor: JORGE A MALDONADO ([phone])[facility] ([facility])[address] [place] [address] [place] Chloride [Moles/Vol] 106 mmol/L Normal 98-107 [facility] Comment on above: Performed By: #### L AB113, LAB17, [id number] ####Diving Supervisor: JORGE A MALDONADO ([phone])[facility])[address] [place] [address] [place] CO2 [Moles/Vol] 24 mmol/L Normal 23-31 [facility] Comment on above: Performed By: #### L AB113, LAB17, [id number] ####Diving Supervisor: JORGE A MALDONADO ([phone])[facility])[address] [place] [address] Creatinine [Mass/Vol] 2.08 mg/dL High 0.72-1.25 [facility] Comment on above: Performed By: #### L AB113, LAB17, [id number] ####Diving Supervisor: JORGE A MALDONADO ([phone])[facility])[address] [place] [address] GLOMERULAR FILTRATION RATE ML/MIN/1.73 SQ M.PREDICTED 30.6 mL/min/1.73m*2 Low >60.0 [facility] Comment on above: Result Comment: Calc ulation based on the Chronic Kidney Disease Epidemiology Collaboration (CKD-EPI) equation refit without adjustment for race Performed By: #### L AB113, LAB17, [id number] ####Diving Supervisor: JORGE A MALDONADO ([phone])[facility])[address] [place] [address] Glucose [Mass/Vol] 107 mg/dL Normal 82-115 [facility] Comment on above: Performed By: #### L AB113, LAB17, [id number] ####Diving Supervisor: JORGE A MALDONADO ([phone])[address] Potassium [Moles/Vol] 3.4 mmol/L Low 3.5-5.1 [facility] Comment on above: Result Comment: [facility] potassium values may be up to 0.5 mmol/L lower than serum values. Performed By: #### L AB113, LAB17, DVB104 ####Diving Supervisor: JORGE A MALDONADO ([phone])[facility])[address] [place] [address] Protein [Mass/Vol] 7.1 g/dL Normal 6.4-8.3 [facility] Comment on above: Performed By: #### L AB113, LAB17, [id number] ####Diving Supervisor: JORGE A MALDONADO ([phone])[place] [address] [place] Sodium [Moles/Vol] 141 mmol/L Normal 136-145 [facility] Comment on above: Performed By: #### L AB113, LAB17, [id number] ####Diving Supervisor: JORGE A MALDONADO ([phone])[facility] ([facility])[address] [place] [address] Urea nitrogen [Mass/Vol] 36 mg/dL High 9-23 [facility] Comment on above: Performed By: #### L AB113, LAB17, [id number] ####Diving Supervisor: JORGE A MALDONADO ([phone])[facility] ([facility])[address] [place] [address] Calcium.ionized [Moles/Vol]o n 01-29-2025 Calcium.ionized (Bld) [Moles/Vol] 4.3 mg/dL 4.30 - 5.20 mg/dL [facility] Interpretation and review of laboratory results Normal [facility] PH, IONIZED CALCIUM 7.38 7.31 - 7.46 [facility] Calcium.ionized [Moles/Vol]O rdered By: Katie Huizar on 01-29-2025 Calcium.ionized (Bld) [Moles/Vol] 4.2 mg/dL Low 4.30 - 5.20 mg/dL [facility] Interpretation and review of laboratory results Abnormal [facility] PH, IONIZED CALCIUM 7.38 7.31 - 7.46 [facility] Comprehensive metabolic 1998 panelon 01-29-2025 Albumin [Mass/Vol] 3.6 g/dL 3.4 - 4.8 g/dL [facility] ALP [Catalytic activity/Vol] 118 U/L 40 - 150 U/L [facility] ALT [Catalytic activity/Vol] 13 U/L NINF - 40 U/L [facility] Anion gap [Moles/Vol] 11 mmol/L 3 - 13 mmol/L [facility] AST [Catalytic activity/Vol] 27 U/L NINF - 34 U/L [facility] Bilirubin [Mass/Vol] 1.4 mg/dL High NINF - 1.2 mg/dL [facility] Calcium [Mass/Vol] 9.6 mg/dL 8.8 - 10. 0 mg/dL [facility] Chloride [Moles/Vol] 106 mmol/L 98 - 10 7 mmol/L [facility] CO2 [Moles/Vol] 24 mmol/L 23 - 31 mmol/L [facility] Creatinine [Mass/Vol] 2.08 mg/dL High 0.72 - 1.25 mg/dL [facility] GFR/1.73 sq M.predicted (S/P/Bld) [Vol rate/Area] 30.6 mL/min Low - PINF [facility] Comment on above: Calculation based on the Chronic Kidney Disease Epidemiology Collaboration (CKD-EPI) equation refit without adjustment for race Glucose [Mass/Vol] 107 mg/dL 82 - 115 mg/dL [facility] Interpretation and review of laboratory results Abnormal [facility] Potassium [Moles/Vol] 3.4 mmol/L Low 3.5 - 5.1 mmol/L [facility] Comment on above: Plasma potassium erika ues may be up to 0.5 mmol/L lower than serum values. Protein [Mass/Vol] 7.1 g/dL 6.4 - 8.3 g/dL [facility] Sodium [Moles/Vol] 141 mmol/L 136 - 145 mmol/L [facility] Urea nitrogen [Mass/Vol] 36 mg/dL High 9 - 23 mg/d L [facility] Consulton 01-29-2025 Consult Attestation signed by Donovan [...] ejection fraction, hypertension who who presented to [facility] with a chief complaint of shortness of breath and volume overload. He was seen by Dr. Lund yesterday and transferred here to [facility] due to lack of beds. IV diuresis [...] diuresis and we will continue to monitor. oDnovan Hoffman MD, PhD Advanced Heart Failure Cardiology [facility]. Heart and Vascular [place] 1:12 PM 01/29/25 [facility] Heart & Vascular [facility] Cardiology /Electrophysiology Consult Note Reason for Consult/Chief Complaint: Dyspnea Referring provider: Dr. Hall Established sanitor: Dr. Roth History of Present Illness: Megan Nascimento is a 84 y.o. 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 Initially presented at [facility] but transferred here for further management. 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 Normal [facility] Laboratory - Chemistry and C hemistry - challengeon 01-29-2025 Glucose [Mass/Vol] 138 mg/dL High 70 - 100 mg/dL [facility] Magnesium [Mass/Vol] 1.7 mg/dL 1.6 - 2 .6 mg/dL [facility] Glucose [Mass/Vol] 106 mg/dL High 70 - 100 mg/dL [facility] Glucose [Mass/Vol] 114 mg/dL High 70 - 100 mg/dL [facility] Magnesium [Mass/Vol] 1.7 mg/dL 1.6 - 2 .6 mg/dL [facility] Glucose [Mass/Vol] 139 mg/dL High 70 - 100 mg/dL [facility] MAGNESIUMon 01-29-2025 Magnesium [Mass/Vol] 1.7 mg/dL Normal 1.6-2.6 [facility] Comment on above: Result Comment: MIO Klein COMMENTS: Higher values can be expected in females during menses. Performed By: #### L AB113, LAB17, [id number] ####Diving Supervisor: JORGE A MALDONADO ([phone])[address] Magnesium [Mass/Vol] 1.7 mg/dL Normal 1.6-2.6 [facility] Comment on above: Result Comment: MIO R COMMENTS: Higher values can be expected in females during menses. Performed By: #### L AB113, [id number], LAB15 ####Diving Supervisor: JORGE A MALDONADO ([phone])[facility] ([facility])[address] [place] [address] Magnesium [Mass/Vol]on 01-29 Higher values can be expected in females during menses. [facility] Interpretation and review of laboratory results Normal [facility] Higher values can be expected in females during menses. [facility] No Panel Informationon 01-29 Interpretation and review of laboratory results Abnormal [facility] Performed by: [facility], [address] [place] [id number] CLIA ID: [id number] [facility] Interpretation and review of laboratory results Normal [facility] Interpretation and review of laboratory results Abnormal [facility] Performed by: [facility], [address] [place] [address] CLIA ID: [id number] [facility] Interpretation and review of laboratory results Abnormal [facility] Performed by: [facility], [address] [place] [address] CLIA ID: [id number] [facility] Interpretation and review of laboratory results Abnormal [facility] Performed by: [facility], [address] [place] [address] CLIA ID: [id number] [facility] PHOSPHORUSon 01-29-2025 Phosphate [Mass/Vol] 2.4 mg/dL Normal 2.3-4.7 [facility] Comment on above: Performed By: #### L AB113, LAB17, [id number] ####Diving Supervisor: JORGE A MALDONADO ([phone])[facility] ([facility])[address] [place] [address] [place] Phosphate [Mass/Vol] 2.7 mg/dL Normal 2.3-4.7 [facility] Comment on above: Performed By: #### L AB113, VYS651, LAB15 ####Diving Supervisor: JORGE A MALDONADO ([phone])[facility] ([facility])[address] [place] [address] [place] Phosphate [Moles/Vol]on 01-18 Phosphate [Mass/Vol] 2.4 mg/dL 2.3 - 4 .7 mg/dL [facility] Interpretation and review of laboratory results Normal [facility] Phosphate [Mass/Vol] 2.7 mg/dL 2.3 - 4 .7 mg/dL [facility] 36on 01-28-2025 36 ----- Message from Ralph Roth MD sent at 01/26/2025 5:16 PM EDT ----- Please call Friday for update, thank you Normal [facility] BASIC METABOLIC PANELon 01-18 Anion gap [Moles/Vol] 14 mmol/L High 3-13 [facility] Comment on above: Performed By: #### L [id number], LAB15, [id number] ####Diving Supervisor: DIGNA MORALES ([phone])[facility] [place] ([facility])[address] Calcium [Mass/Vol] 8.7 mg/dL Low 8.8-10.0 [facility] Comment on above: Performed By: #### L [id number], LAB15, [id number] ####Diving Supervisor: DIGNA MORALES ([phone])[facility] [place] ([facility])[address] Chloride [Moles/Vol] 106 mmol/L Normal 98-107 [facility] Comment on above: Performed By: #### Russell [id number], LAB15, [id number] ####Diving Supervisor: DIGNA MORALES ([phone])[facility] [place] ([facility])[address] CO2 [Moles/Vol] 21 mmol/L Low 23-31 [facility] Comment on above: Performed By: #### Russell [id number], LAB15, [id number] ####Diving Supervisor: DIGNA MORALES ([phone])[facility] [place] ([facility])[address] Creatinine [Mass/Vol] 2.37 mg/dL High 0.72-1.25 [facility] Comment on above: Performed By: #### L [id number], LAB15, [id number] ####Diving Supervisor: DIGNA MORALES ([phone])[facility] [place] ([facility])[address] [place] [address] [place] GLOMERULAR FILTRATION RATE ML/MIN/1.73 SQ M.PREDICTED 26.2 mL/min/1.73m*2 Low >60.0 [facility] Comment on above: Result Comment: Calc ulation based on the Chronic Kidney Disease Epidemiology Collaboration (CKD-EPI) equation refit without adjustment for race ORDER COMMENTS: Slightly Hemolyzed Performed By: #### L [id number], LAB15, [id number] ####Diving Supervisor: DIGNA MORALES ([phone])[facility])[address] Glucose [Mass/Vol] 79 mg/dL Low 82-115 [facility] Comment on above: Performed By: #### L [id number], LAB15, [id number] ####Diving Supervisor: DIGNA MORALES ([phone])[facility] ([facility])[address] [place] [address] Potassium [Moles/Vol] 4.2 mmol/L Normal 3.5-5.1 [facility] Comment on above: Result Comment: TC Significant interference from hemolysis. Result integrity compromised. Interpret with caution. Performed By: #### L [id number], LAB15, [id number] ####Diving Supervisor: DIGNA MORALES ([phone])[facility] ([facility])[address] [place] [address] Sodium [Moles/Vol] 141 mmol/L Normal 136-145 [facility] Comment on above: Performed By: #### L [id number], LAB15, [id number] ####Diving Supervisor: DIGNA MORALES ([phone])[facility] ([facility])[address] Urea nitrogen [Mass/Vol] 40 mg/dL High 9-23 [facility] Comment on above: Performed By: #### L [id number], LAB15, [id number] ####Diving Supervisor: DIGNA MORALES ([phone])[facility] ([facility])[address] Basic metabolic 1998 panelon 01-28-2025 Anion gap [Moles/Vol] 14 mmol/L High 3 - 13 mmol/L [facility] Calcium [Mass/Vol] 8.7 mg/dL Low 8.8 - 10. 0 mg/dL [facility] Chloride [Moles/Vol] 106 mmol/L 98 - 10 7 mmol/L [facility] CO2 [Moles/Vol] 21 mmol/L Low 23 - 31 mmol/L [facility] Creatinine [Mass/Vol] 2.37 mg/dL High 0.72 - 1.25 mg/dL [facility] GFR/1.73 sq M.predicted (S/P/Bld) [Vol rate/Area] 26.2 mL/min Low - PINF [facility] Comment on above: Calculation based on the Chronic Kidney Disease Epidemiology Collaboration (CKD-EPI) equation refit without adjustment for race Glucose [Mass/Vol] 79 mg/dL Low 82 - 115 mg/dL [facility] Interpretation and review of laboratory results Abnormal [facility] Potassium [Moles/Vol] 4.2 mmol/L 3.5 - 5.1 mmol/L [facility] Comment on above: TC Significant interference from hemolysis. Result integrity compromised. Interpret with caution. Sodium [Moles/Vol] 141 mmol/L 136 - 145 mmol/L [facility] Urea nitrogen [Mass/Vol] 40 mg/dL High 9 - 23 mg/d L [facility] Slightly Hemolyzed [facility] CBC W Auto Differential pane l (Bld)on 01-28-2025 Basophils (Bld) [#/Vol] 0.1 10*3/uL 0.0 - 0.2 10*3/uL [facility] Basophils/100 WBC (Bld) 1.7 % 0.0 - 2.0 % [facility] Eosinophils (Bld) [#/Vol] 0.2 10*3/uL 0.0 - 0.5 10*3/uL [facility] Eosinophils/100 WBC (Bld) 2.9 % 0.0 - 6.0 % [facility] Erythrocyte distribution width (RBC) [Ratio] 19.5 % High 11.5 - 15.0 % [facility] Hematocrit (Bld) [Volume fraction] 46 % 40.0 - 52.0 % [facility] Hemoglobin (Bld) [Mass/Vol] 15.2 g/dL 13.0 - 18.0 g/dL [facility] Immature granulocytes (Bld) [#/Vol] 0 10*3/uL NINF - 0.1 10*3/uL [facility] Immature granulocytes/100 WBC (Bld) 0.3 % 0.0 - 2.0 % [facility] Interpretation and review of laboratory results Abnormal [facility] Lymphocytes (Bld) [#/Vol] 1.3 10*3/uL 1.0 - 4.3 10*3/uL [facility] Lymphocytes/100 WBC (Bld) 22.5 % 15.0 - 45.0 % [facility] MCH (RBC) [Entitic mass] 28.8 pg 26. 0 - 34.0 pg [facility] MCHC (RBC) [Mass/Vol] 33 % 30.5 - 36.0 % [facility] MCV (RBC) [Entitic vol] 87.3 fL 77.0 - 99.0 fL [facility] Monocytes (Bld) [#/Vol] 0.5 10*3/uL 0.0 - 0.9 10*3/uL [facility] Monocytes/100 WBC (Bld) 8.7 % 5.0 - 13.0 % [facility] Neutrophils (Bld) [#/Vol] 3.8 10*3/uL 1.8 - 7.5 10*3/uL [facility] Neutrophils/100 WBC (Bld) 63.9 % 38.0 - 82.0 % [facility] Nucleated RBC/100 WBC (Bld) [Ratio] 0 % [facility] Platelet mean volume (Bld) [Entitic vol] 10.4 fL 9.0 - 12.7 fL [facility] Platelets (Bld) [#/Vol] 230 10*3/uL 140 - 440 10*3/uL [facility] RBC (Bld) [#/Vol] 5.27 10*6/uL 4.40 - 5.9 0 10*6/uL [facility] WBC (Bld) [#/Vol] 5.9 10*3/uL 3.6 - 10.7 10*3/uL [facility] CBC WITH AUTO DIFFERENTIALon 01-28-2025 Basophils (Bld) [#/Vol] 0.1 10*3/uL Normal 0.0-0.2 [facility] Comment on above: Performed By: #### L [id number] ####Diving Supervisor: DIGNA ROJASREX ([phone])[facility] [place] (SBHLAB)[address] Basophils/100 WBC (Bld) 1.7 % Normal 0.0-2.0 [facility] Comment on above: Performed By: #### L [id number] ####Diving Supervisor: DIGNA ROJASREX ([phone])[facility] (SBHLAB)[address] Eosinophils (Bld) [#/Vol] 0.2 10*3/uL Normal 0.0-0.5 [facility] Comment on above: Performed By: #### L [id number] ####Diving Supervisor: DIGNA ARANAILYA ([phone])[facility] [place] (SBHLAB)[address] Eosinophils/100 WBC (Bld) 2.9 % Normal 0.0-6.0 [facility] Comment on above: Performed By: #### L [id number] ####Diving Supervisor: DIGNA ARANAILYA ([phone])[facility] (SBHLAB)[address] Erythrocyte distribution width (RBC) [Ratio] 19.5 % High 11.5-15.0 [facility] Comment on above: Performed By: #### L [id number] ####Diving Supervisor: DIGNA MORALES ([phone])[facility] (SBHLAB)[address] Hematocrit (Bld) [Volume fraction] 46.0 % Normal 40.0-52.0 [facility] Comment on above: Performed By: #### L [id number] ####Diving Supervisor: DIGNA ROJASREX ([phone])[facility] [place] (SBHLAB)[address] Hemoglobin (Bld) [Mass/Vol] 15.2 g/dL Normal 13.0-18.0 [facility] Comment on above: Performed By: #### L [id number] ####Diving Supervisor: DIGNA MORALES ([phone])[facility] (SB[facility])[address] IMMATURE GRANS % 0.3 % Normal 0.0-2.0 [facility] Comment on above: Performed By: #### L [id number] ####Diving Supervisor: DIGNA MORALES ([phone])[facility] (SB[facility])[address] IMMATURE GRANS ABSOLUTE 0.0 10*3/uL Normal <0.1 [facility] Comment on above: Performed By: #### L [id number] ####Diving Supervisor: DIGNA MORALES ([phone])[facility] [place] (SBAB)[address] [place] [address] Lymphocytes (Bld) [#/Vol] 1.3 10*3/uL Normal 1.0-4.3 [facility] Comment on above: Performed By: #### L [id number] ####Diving Supervisor: DIGNA MORALES ([phone])[facility] (SBAB)[address] [place] [address] Lymphocytes/100 WBC (Bld) 22.5 % Normal 15.0-45.0 [facility] Comment on above: Performed By: #### L [id number] ####Diving Supervisor: DIGNA MORALES ([phone])[facility] (SBHLAB)[address] [place] [address] MCH (RBC) [Entitic mass] 28.8 pg Normal 26.0-34.0 [facility] Comment on above: Performed By: #### L [id number] ####Diving Supervisor: DIGNA MORALES ([phone])[facility] (SB[facility])[address] MCHC 33.0 % Normal 30.5-36.0 [facility] Comment on above: Performed By: #### L [id number] ####Diving Supervisor: DIGNA MORALES ([phone])[facility] (SBHLAB)[address] MCV (RBC) [Entitic vol] 87.3 fL Normal 77.0-99.0 [facility] Comment on above: Performed By: #### L [id number] ####Diving Supervisor: DIGNA MORALES ([phone])[facility] [place] (SBHLAB)[address] Monocytes (Bld) [#/Vol] 0.5 10*3/uL Normal 0.0-0.9 [facility] Comment on above: Performed By: #### L [id number] ####Diving Supervisor: DIGNA MORALES ([phone])[facility] [place] (SBHLAB)[address] Monocytes/100 WBC (Bld) 8.7 % Normal 5.0-13.0 [facility] Comment on above: Performed By: #### L [id number] ####Diving Supervisor: DIGNA MORALES ([phone])[facility] [place] (SBHLAB)[address] NEUTROPHILS ABSOLUTE 3.8 10*3/uL Normal 1.8-7.5 [facility] Comment on above: Performed By: #### L [id number] ####Diving Supervisor: DIGNA MORALES ([phone])[facility] [place] (SBHLAB)[address] Neutrophils/100 WBC (Bld) 63.9 % Normal 38.0-82.0 [facility] Comment on above: Performed By: #### L [id number] ####Diving Supervisor: DIGNA MORALES ([phone])[facility] [place] (SBHLAB)[address] NRBC 0.0 /100 WBCs Normal 0.0-2.0 [facility] Comment on above: Performed By: #### L [id number] ####Diving Supervisor: DIGNA OMRALES ([phone])[facility] [place] (SBHLAB)[address] Platelet mean volume (Bld) [Entitic vol] 10.4 fL Normal 9.0-12.7 [facility] Comment on above: Performed By: #### L [id number] ####Diving Supervisor: DIGNA MORALES ([phone])[facility]ENTERCarlos [facility] (SBHL[facility])[address] Platelets (Bld) [#/Vol] 230 10*3/uL Normal 140-440 [facility] Comment on above: Performed By: #### L [id number] ####Diving Supervisor: DIGNA MORALES ([phone])[facility]ENTERCarlos [facility] (SBHLAB)[address] RBC (Bld) [#/Vol] 5.27 10*6/uL Normal 4.40-5.90 [facility] Comment on above: Performed By: #### L [id number] ####Diving Supervisor: DIGNA MORALES ([phone])[facility]ENTERCarlos [facility] (SBHLAB)[address] WBC (Bld) [#/Vol] 5.9 10*3/uL Normal 3.6-10.7 [facility] Comment on above: Performed By: #### L [id number] ####Diving Supervisor: DIGNA MORALES ([phone])[facility] ([facility])[address] ECG 12-LEADon 01-28-2025 ECG 12-LEAD IMPRESSION: Ventricular-paced rhythm No further analysis attempted due to paced rhythm Electronically Signed On 01-28-2025 17:24:48 EDT by Eduardo Feliciano [facility] ED Nursing Noteon 01-28-2025 ED Nursing Note Report given to Amos Crooks for transfer to [facility] ED Nursing Note Report called to Ca Mojica RN Normal [facility] ED Nursing Note 250 cc of urine empted this am, pt wheeled to restroom, voided and stooled. Normal [facility] ED Nursing Note No cardiac monitoring available at this time. Provider aware Normal [facility] ED Provider Noteon ED Provider Note EMERGENCY [...] at rest. Denies chest pain. Seen at sanitor office yesterday and was noted to be [...] 1.3 Mon (more content not included)... Normal [facility] HIGH SENSITIVITY TROPONIN, S ERIAL BASELINEon 01-28-2025 TROPONIN HS SERIAL BASELINE 32 ng/L Normal <=35 [facility] Comment on above: Result Comment: In i ndividuals presenting with symptoms > 2h, a baseline troponin <= 5 ng/L suggests acute cardiac injury is unlikely and further serial testing is generally not indicated. Performed By: #### L [id number], [id number], [id number] ####Diving Supervisor: DIGNA MORALES ([phone])[facility] ([facility])[address] [place] [address] Laboratory - Chemistry and C hemistry - challengeon 01-28-2025 Glucose [Mass/Vol] 167 mg/dL High 70 - 100 mg/dL [facility] Seer Glucose [Mass/Vol] 113 mg/dL High 70 - 100 mg/dL [facility] Glucose [Mass/Vol] 89 mg/dL 70 - 100 mg/dL [facility] Glucose [Mass/Vol] 74 mg/dL 70 - 100 mg/dL [facility] Glucose [Mass/Vol] 124 mg/dL High 70 - 100 mg/dL [facility] NT PRO BNPon 01-28-2025 Natriuretic peptide B (Bld) [Mass/Vol] 53932 pg/mL High <450 [facility] Comment on above: Performed By: #### L [id number], LAB15, [id number] ####Diving Supervisor: DIGNA MORALES ([phone])[facility] (SBHLAB)[address] [place] [address] [place] Natriuretic peptide B [Mass/ Vol]on 01-28-2025 Interpretation and review of laboratory results Abnormal [facility] Natriuretic peptide B (Bld) [Mass/Vol] 66199 pg/mL High NINF - 450 pg/mL [facility] No Panel Informationon 01-28 Interpretation and review of laboratory results Abnormal [facility] Performed by: [address] [address] CLIA ID: [id number] [facility] Interpretation and review of laboratory results Abnormal [facility] Performed by: [address] [address] CLIA ID: [id number] [facility] Ventricular-paced rhythm No further analysis attempted due to paced rhythm Electronically Signed On 01-28-2025 17:24:48 EDT by Eduardo Feliciano CV Eduardo Drake MD - 01/28/2025 IMPRESSION: Ventricular-paced rhythm No further analysis attempted due to paced rhythm Electronically Signed On 01-28-2025 17:24:48 EDT by Eduardo Feliciano [facility] Interpretation and review of laboratory results Normal [facility] Performed by: Tutu Romeo [address] [place] [address] CLIA ID: [id number] [facility] Interpretation and review of laboratory results Normal [facility] Performed by: [facility] Rome[facility] [address] [place] [address] CLIA ID: [id number] [facility] Interpretation and review of laboratory results Abnormal [facility] Performed by: [facility] Rome[facility] [address] [place] [address] CLIA ID: [id number] [facility] Interpretation and review of laboratory results Normal [facility] Troponin HS Serial Baseline 32 ng/L NINF - 35 ng/L [email or web address] Comment on above: In individuals prese nting with symptoms > 2h, a baseline troponin <= 5 ng/L suggests acute cardiac injury is unlikely and further serial testing is generally not indicated. [email or web address] No Panel InformationOrdered By: Eduardokassidy Feliciano on 01-28-2025 P Woodruff 55 degrees [email or web address] Work Phone: NC Interval 264 ms [email or web address] Work Phone: QRS Woodruff 223 degrees [email or web address] Work Phone: QRSD Interval 144 ms [employer] Work Phone: QT Interval 469 ms [email or web address] Work Phone: QTC Interval 507 ms [email or web address] Work Phone: T Wave Woodruff 37 degrees [email or web address] Work Phone: [email or web address] Work Phone: Vital signsOrdered By: Eduardo Feliciano on 01-28-2025 Heart rate 70 /min bpm [email or web address] Work Phone: XR Chest Single viewon 01-28 See findings. Report Dictated on Electronically Signed By: David Preston MD Electronically Signed Date/Time: 01/28/2025 2:33 AM [facility] 1940 [id number] Exam Date/Time: 01/28/2025 02:17 Procedure: XR CHEST [...] change of the thoracic spine is noted. [facility] David Preston MD - 01/28/2025 Patient Name: MEGAN NAS[facility]IMENTO [facility] 1940 [id number] Exam Date/Time: 01/28/2025 02:17 Procedure: XR CHEST [...] Electronically Signed Date/Time: 01/28/2025 2:33 AM EDT [facility] Radiology Study observation (narrative) [facility] alth XR Chest Single viewOrdered By: David Preston on 01-28-2025 [facility] Work Phone: No Panel Informationon 01-26 Sinus Rhythm -First degree A-V block -A sesi, V pacing ABNORMAL [facility] Office Visiton 01-26-2025 Follow-up visit [id number] Megan Nascimento 1940 M Date Provider Department Center 01/26/2025 42099-FEBIZHLRALPH ROTH [facility] CV Susan Family History Problem Relation Age of Onset High Blood Pressure Father High Blood Pressure Mother Family Status - Relation Status Age at Father Mother Level of Service:90576 NC OFFICE/OUTPATIENT ESTABLISHED MOD MDM 30 MIN Reason for Visit and Comments: Follow-up [891327] Normal [facility] Progress Noteon 01-26-2025 Progress Note [facility] - [place] [address] [facility] [address] Dept: [phone] Dept Loc: [phone] DATE of SERVICE:01/26/25 TIME of SERVICE: 3:59 [...] so he went to the hospital in [place]. Before he might have diverticulitis. His creatinine [...] ventricular pacing Focused cardiac ultrasound: Not done Kick Plate Installer present for focused cardiac ultrasound: Not applicable [...] I assum (more content not included)... Normal [facility] 36on 01-25-2025 36 PC to patient. Reviewed RBC recommendations. Reminded of appt tomorrow. He verbalized understanding. Normal [facility] 36 PC to patient. LMOM to call office [facility] 36 PC to patient. LMOM he can take an extra torsemide 20 mg today. He is to call me back to confirm he received message. Normal [facility] 36on 01-24-2025 36 PC to patient. Leg swelling started last week after he went on a road trip to [place]. They did stop and get out of [...] this Friday at 3:20. He verbalized understanding. [facility] 36 Pt stating having sob and leg swelling Normal [facility] Abdomen/Pelvis without Conto n 12-12-2024 Abdomen/Pelvis without Cont [facility] Services [address] [place] [address] Abdomen/Pelvis without Cont MR#: [id number] Acct: [id number] Name: MEGAN NASCIMENTO Rep #: [id number] : 1940 M 84 From: [place] Mccoy DO PCP: Dr. Rigoberto Durand MD Status: REG ER Study: Abdomen/Pelvis without Cont Date of Exam: 11/19 12/12 Exam# [id number] Ordering Dr: Rena Franklin ADDENDUM by Dr. [...] right lower quadrant. Reading Location: [facility] 12/12/241434 Date cc: Dr. Rigoberto Durand MD; [...] lower chance of developing HCC. Reading [facility] CC: Dr. Rigoberto Durand MD; DASIA Faye Stockroom Clerk: Signed Normal [facility] Absolute lymphocyte countOrd ered By: Rena Franklin on 12-12-2024 Lymphocytes Auto (Unsp spec) [#/Vol] 1.05 10*3/uL 0.83-4.51 [facility] Absolute neutrophil countOrd ered By: Rena Franklin on 12-12-2024 Neutrophils (Bld) [#/Vol] 4.6 10*3/uL 2.0-7.7 [facility] Anion gap in Serum or Plasma Ordered By: Rena Franklin on 12-12-2024 Anion gap [Moles/Vol] 17 mmol/L High 5-15 [facility] Automated lymphocyte count a s percentage of total leukocytesOrdered By: Rena Franklin on 12-12-2024 Lymphocytes/100 WBC Auto (Unsp spec) 16.7 % Low 19-41 [facility] BUN/creatinine ratioOrdered By: Rena Franklin on 12-12-2024 Urea nitrogen/Creatinine [Mass ratio] 14.4 mg/mg 10-20 [facility] Basophil percentageOrdered B y: Rena Franklin on 12-12-2024 Basophils/100 WBC (Bld) 1.3 % High 0-1 [facility] Bilirubin Test strip Ql (U)O rdered By: Rena Franklin on 12-12-2024 Bilirubin Ql (U) Negative Negative [facility] Bilirubin, totalOrdered By: Rena Franklin on 12-12-2024 Bilirubin [Mass/Vol] 0.83 mg/dL 0.00-1.30 [facility] CBC W/Diff, Automatedon 05-2 5-2024 Absolute Lymph 1.05 X10 3/uL Normal 0.83-4.51 [facility] Comment on above: Performed By: #### L 501.2450, L500.4050, L100.0100 #### [facility] Laboratory [address] [place], [address] Absolute Neut 4.6 X10 3/uL Normal 2.0-7.7 [facility] Comment on above: Performed By: #### L 501.2450, L500.4050, L100.0100 #### [facility] [address] [place], [address] Basophils/100 WBC (Bld) 1.3 % High 0-1 [facility] Comment on above: Performed By: #### L 501.2450, L500.4050, L100.0100 #### [facility] [address] [place], [address] Eosinophils/100 WBC (Bld) 2.4 % Normal 0-5 [facility] Comment on above: Performed By: #### L 501.2450, L500.4050, L100.0100 #### [facility] [address] [place], [address] Erythrocyte distribution width (RBC) [Ratio] 16.2 % High 11.6-14.6 [facility] Comment on above: Performed By: #### L 501.2450, L500.4050, L100.0100 #### [facility] [address] [place], [address] Hematocrit (Bld) [Volume fraction] 39.7 % Low 40-54 [facility] Comment on above: Performed By: #### L 501.2450, L500.4050, L100.0100 #### [facility] [address] [place], [address] Hemoglobin (Bld) [Mass/Vol] 12.9 g/dL Low 13.0-16.5 [facility] Comment on above: Performed By: #### L 501.2450, L500.4050, L100.0100 #### [facility] [address] [place], [address] IG% 0.500 Normal 0.0-0.9 [facility] Comment on above: Result Comment: IG% - Immature Granulocytes (promyelocytes, myelocytes and metamyelocytes) > 1% indicates that a LEFT SHIFT is Present. Performed By: #### L 501.2450, L500.4050, L100.0100 #### [facility] [address] [place], [address] Lymphocytes/100 WBC (Bld) 16.7 % Low 19-41 [facility] Comment on above: Performed By: #### L 501.2450, L500.4050, L100.0100 #### [facility] [address] [place], [address] MCH (RBC) [Entitic mass] 28.9 pg Normal 27.0-32.0 [facility] Comment on above: Performed By: #### L 501.2450, L500.4050, L100.0100 #### [facility] [address] [place], [address] MCHC (RBC) [Mass/Vol] 32.5 g/dL Normal 32-36 [facility] Comment on above: Performed By: #### L 501.2450, L500.4050, L100.0100 #### [facility] [address] [place], [address] MCV (RBC) [Entitic vol] 89.0 fL Normal 80-94 [facility] Comment on above: Performed By: #### L 501.2450, L500.4050, L100.0100 #### [facility] [address] [place], [address] Monocytes/100 WBC (Bld) 6.3 % Normal 0-10 [facility] Comment on above: Performed By: #### L 501.2450, L500.4050, L100.0100 #### [facility] [address] [place], [address] Neutrophils/100 WBC (Bld) 72.8 % High 47-70 [facility] Comment on above: Performed By: #### L 501.2450, L500.4050, L100.0100 #### [facility] [address] [place], [address] Nucleated RBC (Bld) [#/Vol] 0 10*3/uL Normal 0-5 [facility] Comment on above: Performed By: #### L 501.2450, L500.4050, L100.0100 #### [facility] [address] [place], [address] Platelet mean volume (Bld) [Entitic vol] 10.7 fL Normal 6.2-12.0 [facility] Comment on above: Performed By: #### L 501.2450, L500.4050, L100.0100 #### [facility] [address] [place], [address] Platelets (Bld) [#/Vol] 210 10*3/uL Normal 150-450 [facility] Comment on above: Performed By: #### L 501.2450, L500.4050, L100.0100 #### [facility] [address] [place], [address] RBC (Bld) [#/Vol] 4.46 10*6/uL Low 4.6-6.[address] [facility] Comment on above: Performed By: #### L 501.2450, L500.4050, L100.0100 #### [facility] [address] [place], [address] RDW SD 52.4 fl High 35.1-43.9 [facility] Comment on above: Performed By: #### L 501.2450, L500.4050, L100.0100 #### [facility] [address] [place], [address] WBC (Bld) [#/Vol] 6.3 10*3/uL Normal 4.4-11.0 [facility] Comment on above: Performed By: #### L 501.2450, L500.4050, L100.0100 #### [facility] [address] [place], [address] Carbon dioxide, total [Moles /volume] in Central venous bloodOrdered By: Rena Franklin on 12-12-2024 CO2 [Moles/Vol] 19.6 mmol/L Low 21.0-32.0 [facility] Chloride assayOrdered By: Debbie Franklin on 12-12-2024 Chloride [Moles/Vol] 104 mmol/L 98-108 [facility] Comprehensive Metabolic Prof ilon 12-12-2024 Albumin [Mass/Vol] 4.2 g/dL Normal 3.4-4.8 [facility] Comment on above: Performed By: #### L 501.2450, L500.4050, L100.0100 #### [facility] [address] [place], [address] Albumin/Globulin [Mass ratio] 1.5 {ratio} Normal 0.9-2.4 [facility] Comment on above: Performed By: #### L 501.2450, L500.4050, L100.0100 #### [facility] [address] [place], [address] ALK PHOS 108 U/L Normal 40-129 [facility] Comment on above: Performed By: #### L 501.2450, L500.4050, L100.0100 #### [facility] [address] [place], [address] ALT [Catalytic activity/Vol] 15 U/L Normal <=46 [facility] Comment on above: Performed By: #### L 501.2450, L500.4050, L100.0100 #### [facility] [address] [place], [address] AST [Catalytic activity/Vol] 25 U/L Normal <=37 [facility] Comment on above: Performed By: #### L 501.2450, L500.4050, L100.0100 #### [facility] [address] [place], [address] Bilirubin [Mass/Vol] 0.83 mg/dL Normal 0.00-1.30 [facility] Comment on above: Performed By: #### L 501.2450, L500.4050, L100.0100 #### [facility] [address] [place], [address] BUN/CRE 14.4 RATIO Normal 10-20 [facility] Comment on above: Performed By: #### L 501.2450, L500.4050, L100.0100 #### [facility] [address] [place], [address] Calcium [Mass/Vol] 9.4 mg/dL Normal 7.6-11.0 [facility] Comment on above: Performed By: #### L 501.2450, L500.4050, L100.0100 #### [facility] [address] [place], [address] Chloride [Moles/Vol] 104 mmol/L Normal 98-108 [facility] Comment on above: Performed By: #### L 501.2450, L500.4050, L100.0100 #### [facility] [address] [place], [address] CO2 [Moles/Vol] 19.6 mmol/L Low 21.0-32.0 [facility] Comment on above: Performed By: #### L 501.2450, L500.4050, L100.0100 #### [facility] [address] [place], [address] Creatinine [Mass/Vol] 2.39 mg/dL High 0.70-1.20 [facility] Comment on above: Performed By: #### L 501.2450, L500.4050, L100.0100 #### [facility] [address] [place], [address] GAP 17 High 5-15 [facility] Comment on above: Performed By: #### L 501.2450, L500.4050, L100.0100 #### [facility] [address] [place], [address] GFR/1.73 sq M.predicted among non-blacks MDRD (S/P/Bld) [Vol rate/Area] 26 mL/min/{1.73_m2} Low >60 [facility] Comment on above: Result Comment: mL/m in/1.73m2 CKD-EPI Creatinine Equation (2020) Performed By: #### L 501.2450, L500.4050, L100.0100 #### [facility] [address] [place], [address] Globulin (S) [Mass/Vol] 2.9 g/dL Normal 2.2-4.2 [facility] Comment on above: Performed By: #### L 501.2450, L500.4050, L100.0100 #### [facility] [address] [place], [address] Glucose [Mass/Vol] 144 mg/dL High 70-99 [facility] Comment on above: Performed By: #### L 501.2450, L500.4050, L100.0100 #### [facility] [address] [place], [address] Potassium [Moles/Vol] 3.9 mmol/L Normal 3.3-5.1 [facility] Comment on above: Performed By: #### L 501.2450, L500.4050, L100.0100 #### [facility] [address] [place], [address] Sodium [Moles/Vol] 140 mmol/L Normal 133-145 [facility] Comment on above: Performed By: #### L 501.2450, L500.4050, L100.0100 #### [facility] [address] [place], [address] T PROT 7.1 g/dL Normal 5.9-8.4 [facility] Comment on above: Performed By: #### L 501.2450, L500.4050, L100.0100 #### [facility] [address] [place], [address] Urea nitrogen [Mass/Vol] 34 mg/dL High 4-19 [facility] Comment on above: Performed By: #### L 501.2450, L500.4050, L100.0100 #### [facility] [address] [place], [address] Emergency Department Summary on 12-12-2024 Emergency Department Summary [facility] Medical Records Department [address] [place] [address] Emergency Department Summary 12/12/24 MR#: [id number] Acct: [id number] Name: MEGAN NASCIMENTO Rep #: [id number] : 1940 84 From: Rena FORMAN PCP: [...] of CHF, HTN, CKD, T2DM, and GERD. [facility] Medical History Chronic pain of toe of [...] Unk nown History tablet,extended release 24 hr neodpflqhxtk-ior-gwt ic acid-vit 1 tab PO DAILY not [...] substance use (more content not included)... Normal [facility] Eosinophil percentageOrdered By: Rena Franklin on 12-12-2024 Eosinophils/100 WBC (Bld) 2.4 % 0-5 [facility] Erythrocyte distribution wid th ratioOrdered By: Rena Franklin on 12-12-2024 Erythrocyte distribution width (RBC) [Ratio] 16.2 % High 11.6-14.6 [facility] Erythrocyte distribution wid th standard deviationOrdered By: Rena Franklin on 12-12-2024 Erythrocyte distribution width (RBC) [Ratio] 52.4 fl High 35.1-43.9 [facility] Glomerular filtration rate ( GFR) estimation/1.73 sq m using serum, plasma, or whole bOrdered By: Rena Franklin on 12-12-2024 GFR/1.73 sq M.predicted among non-blacks MDRD (S/P/Bld) [Vol rate/Area] 26 mL/min/{1.73_m2} Low >60 [facility] Comment on above: mL/min/1.73m2 CKD-EP I Creatinine Equation (2020) Hematocrit Auto (Bld) [Volum e fraction]Ordered By: Rena Franklin on 12-12-2024 Hematocrit (Bld) [Volume fraction] 39.7 % Low 40-54 [facility] Hemoglobin measurementOrdere d By: Rena Franklin on 12-12-2024 Hemoglobin (Bld) [Mass/Vol] 12.9 g/dL Low 13.0-16.5 [facility] Immature granulocytes/100 WB C Auto (Bld)Ordered By: Rean Franklin on 12-12-2024 Immature granulocytes/100 WBC (Bld) 0.500 % 0.0-0.9 [facility] Comment on above: IG% - Immature Granu locytes (promyelocytes, myelocytes and metamyelocytes) > 1% indicates that a LEFT SHIFT is Present. Ketones Test strip Ql (U)Ord ered By: Rena Franklin on 12-12-2024 Ketones Ql (U) Negative Negative [facility] - Chemistry and C hemistry - challengeOrdered By: Rena Franklin on 12-12-2024 AST [Catalytic activity/Vol] 25 U/L <38 [facility] Lipaseon 12-12-2024 Lipase [Catalytic activity/Vol] 36 U/L Normal 13-75 [facility] Comment on above: Result Comment: Plea se note: LIPASE revised reference range effective 22. New Lipase methodology. Expected to produce lower values than the previous assay method. NEW Reference Range: 13 - 75 U/L Performed By: #### L 501.2450, L500.4050, L100.0100 #### [facility] [address] [place], [address] Lipase measurementOrdered By : Rena Franklin on 12-12-2024 Lipase [Catalytic activity/Vol] 36 U/L 13-75 [facility] Comment on above: Please note:LIPASE r evised reference range effective 22. New Lipase methodology. Expected to produce lower values than the previous assay method. NEW Reference Range: 13 - 75 U/L MCV (mean corpuscular volume ) determinationOrdered By: Rena Franklin on 12-12-2024 MCV (RBC) [Entitic vol] 89.0 fL 80-94 [facility] Mean corpuscular hemoglobin (MCH) determinationOrdered By: Rena Franklin on 12-12-2024 MCH (RBC) [Entitic mass] 28.9 pg 27.0-32.0 [facility] Mean corpuscular hemoglobin concentration (MCHC) determinationOrdered By: Rena Franklin on 12-12-2024 MCHC (RBC) [Mass/Vol] 32.5 g/dL 32-36 [facility] Mean platelet volume determi nationOrdered By: Rena Franklin on 12-12-2024 Platelet mean volume (Bld) [Entitic vol] 10.7 fL 6.2-12.0 [facility] Microscopic analysis of urin e for red blood cells (RBC)Ordered By: Rena Franklin on 12-12-2024 Microscopic analysis of urine for red blood cells (RBC) 0 SEEN /hpf 0-5 [facility] Monocyte percentageOrdered B y: Rena Franklin on 12-12-2024 Monocytes/100 WBC (Bld) 6.3 % 0-10 [facility] Mucus LM Ql (Urine sed)Order ed By: Rena Franklin on 12-12-2024 Mucus Ql (Urine sed) 0 SEEN /hpf [facility] Neutrophil percentageOrdered By: Rena Franklin on 12-12-2024 Neutrophils/100 WBC (Bld) 72.8 % High 47-70 [facility] Nitrite Test strip Ql (U)Ord ered By: Rena Franklin on 12-12-2024 Nitrite Ql (U) Negative Negative [facility] Nucleated red blood cell per centageOrdered By: Rena Franklin on 12-12-2024 Nucleated RBC/100 WBC (Bld) [Ratio] 0 % 0-5 [facility] Platelet countOrdered By: Debbie Franklin on 12-12-2024 Platelets (Bld) [#/Vol] 210 10*3/uL 150-450 [facility] Potassium measurement (mass/ volume)Ordered By: Rena Franklin on 12-12-2024 Potassium (Unsp spec) [Mass/Vol] 3.9 mmol/L 3.3-5.1 [facility] Protein Test strip Ql (U)Ord ered By: Rena Franklin on 12-12-2024 Protein Ql (U) 30 mg/dl High Negative [facility] RBC Auto (Bld) [#/Vol]Ordere d By: Rena Franklin on 12-12-2024 RBC (Bld) [#/Vol] 4.46 10*6/uL Low 4.6-6.[address] [facility] Serum creatinine measurement (mass/volume)Ordered By: Rena Franklin on 12-12-2024 Creatinine [Mass/Vol] 2.39 mg/dL High 0.70-1.20 [facility] Serum globulin measurementOr dered By: Rena Franklin on 12-12-2024 Globulin (S) [Mass/Vol] 2.9 g/dL 2.2-4.2 [facility] Serum glucose measurement (m ass/volume)Ordered By: Rena Franklin on 12-12-2024 Glucose [Mass/Vol] 144 mg/dL High 70-99 [facility] Serum or plasma alanine clay otransferase (ALT) measurementOrdered By: Rena Franklin on 12-12-2024 ALT [Catalytic activity/Vol] 15 U/L <47 [facility] Serum or plasma albumin geena urement (mass/volume)Ordered By: Rena Franklin on 12-12-2024 Albumin [Mass/Vol] 4.2 g/dL 3.4-4.8 [facility] Serum or plasma albumin/glob ulin mass ratioOrdered By: Rena Franklin on 12-12-2024 Albumin/Globulin [Mass ratio] 1.5 {ratio} 0.9-2.4 [facility] Serum or plasma alkaline camila sphatase measurementOrdered By: Rena Franklin on 12-12-2024 ALP [Catalytic activity/Vol] 108 U/L 40-129 [facility] Serum or plasma calcium geena urement (mass/volume)Ordered By: Rena Franklin on 12-12-2024 Calcium [Mass/Vol] 9.4 mg/dL 7.6-11.0 [facility] Serum or plasma urea nitroge n measurement (mass/volume)Ordered By: Rena Franklin on 12-12-2024 Urea nitrogen [Mass/Vol] 34 mg/dL High 4-19 [facility] Sodium levelOrdered By: Kash Franklin on 12-12-2024 Sodium [Moles/Vol] 140 mmol/L 133-145 [facility] Squamous epithelial cells de tection in urine sediment by light microscopyOrdered By: Rena Franklin on 05-25-2025 Epithelial cells.squamous LM Ql (Urine sed) 0 SEEN /hpf 0-5 [facility] Total proteinOrdered By: Erick Franklin on 12-12-2024 Protein [Mass/Vol] 7.1 g/dL 5.9-8.4 [facility] Urinalysis, Completeon 12-12 BACTERIA 0 SEEN Normal None Seen [facility] Comment on above: Order Comment: CLEAN CATCH Performed By: #### L 501.080 #### [facility] [address] [place], [address] EPI,SQUAMOUS 0 SEEN Normal 0-5 [facility] Comment on above: Order Comment: CLEAN CATCH Performed By: #### L 501.080 #### [facility] [address] [place], [address] Mucus Ql (Urine sed) 0 SEEN Normal [facility] Comment on above: Order Comment: CLEAN CATCH Performed By: #### L 501.080 #### [facility] [address] [place], [address] RBC 0 SEEN Normal 0-5 [facility] Comment on above: Order Comment: CLEAN CATCH Performed By: #### L 501.080 #### [facility] [address] [place], [address] WBC 0 SEEN Normal 0-[address] [place] [address] Comment on above: Order Comment: CLEAN CATCH Performed By: #### L 501.080 #### [facility] [address] [place], [address] Urine clarityOrdered By: Erick Franklin on 12-12-2024 Clarity (U) Clear Clear [facility] Urine color determinationOrd ered By: Rena Franklin on 12-12-2024 Color (U) Yellow Yellow [facility] Urine glucose detectionOrder ed By: Rena Franklin on 12-12-2024 Glucose Ql (U) Normal mg/dl Normal [facility] Urine leukocyte esterase det ection by dipstickOrdered By: Rena Franklin on 12-12-2024 Leukocyte esterase Test strip Ql (U) Negative Negative [facility] Urine pHOrdered By: Ranjit Franklin on 12-12-2024 pH (U) 6.0 [pH] 5.0 - 8.0 [facility] Urine sediment bacteria coun t by microscopy (number/high power field)Ordered By: Rena Franklin on 12-12-2024 Bacteria LM.HPF (Urine sed) [#/Area] 0 /[HPF] None Seen [facility] Urine specific gravity measu rementOrdered By: Rena Franklin on 12-12-2024 Specific gravity (U) [Rel density] 1.010 1.002-1.030 [facility] Urine urobilinogen measureme ntOrdered By: Rena Franklin on 12-12-2024 Urobilinogen Ql (U) Normal mg/dl Normal [facility] White blood cell (WBC) count Ordered By: Rena Franklin on 12-12-2024 WBC (Bld) [#/Vol] 6.3 10*3/uL 4.4-11.0 [facility] White blood cell countOrdere d By: Rena Franklin on 12-12-2024 White blood cell count 0 SEEN /hpf 0-5 [facility] Albumin DL <= 20 mg/L (U) [M ass/Vol]Ordered By: Rigoberto Durand on 09-27-2024 Urine Random Microalbumin < 12.0 mg/L NO RANGE EST. [facility] Anion gap in Serum or Plasma Ordered By: Rigoberto Durand on 09-27-2024 Anion gap [Moles/Vol] 17 mmol/L High - [facility] BUN/creatinine ratioOrdered By: Rigoberto Durand on 09-27-2024 Urea nitrogen/Creatinine [Mass ratio] 14.3 mg/mg 05-09 [facility] Basic Metabolic Profile (BMP )on 09-27-2024 BUN/CRE 14.3 RATIO Normal 05-09 [facility] Comment on above: Performed By: #### L 501.080 #### [facility] [place], [address] Calcium [Mass/Vol] 8.9 mg/dL Normal 7.6-11.0 [facility] Comment on above: Performed By: #### L 501.080 #### [facility] [address] [place], [address] Chloride [Moles/Vol] 103 mmol/L Normal 98-108 [facility] Comment on above: Performed By: #### L 501.080 #### [facility] [address] [place], [address] CO2 [Moles/Vol] 19.8 mmol/L Low 21.0-32.0 [facility] Comment on above: Performed By: #### L 501.080 #### [facility] [address] [place], [address] Creatinine [Mass/Vol] 2.36 mg/dL High 0.70-1.20 [facility] Comment on above: Performed By: #### L 501.080 #### [facility] [address] [place], [address] GAP 17 High 5-15 [facility] Comment on above: Performed By: #### L 501.080 #### [facility] [address] [place], [address] GFR/1.73 sq M.predicted among non-blacks MDRD (S/P/Bld) [Vol rate/Area] 26 mL/min/{1.73_m2} Low >60 [facility] Comment on above: Result Comment: mL/m in/1.73m2 CKD-EPI Creatinine Equation (2020) Performed By: #### L 501.080 #### [facility] [address] [place], [address] Glucose [Mass/Vol] 142 mg/dL High 70-99 [facility] Comment on above: Performed By: #### L 501.080 #### [facility] [address] [place], [address] Potassium [Moles/Vol] 4.0 mmol/L Normal 3.3-5.1 [facility] Comment on above: Performed By: #### L 501.080 #### [facility] [address] [place], [address] Sodium [Moles/Vol] 140 mmol/L Normal 133-145 [facility] Comment on above: Performed By: #### L 501.080 #### [facility] [address] [place], [address] Urea nitrogen [Mass/Vol] 34 mg/dL High 4-19 [facility] Comment on above: Performed By: #### L 501.080 #### [facility] [address] [place], [address] Calculated very low density lipoprotein (VLDL) cholesterol measurementOrdered By: Rigoberto Durand on 09-27-2024 Calculated very low density lipoprotein (VLDL) cholesterol measurement 36 mg/dL 5-40 [facility] VLDL Cholesterol 36 mg/dL 5-40 [facility] Carbon dioxide, total [Moles /volume] in Central venous bloodOrdered By: Rigoberto Durand on 09-27-2024 CO2 [Moles/Vol] 19.8 mmol/L Low 21.0-32.0 [facility] Chloride assayOrdered By: Dasia Durand on 09-27-2024 Chloride [Moles/Vol] 103 mmol/L 98-108 [facility] Creatinine Unsp time (U) [Ma ss/Vol]Ordered By: Rigoberto Durand on 09-27-2024 Creatinine (U) [Mass/Vol] 42.10 mg/dL 39-259 [facility] GFR/1.73 sq M.predicted [place] g non-blacks MDRD (S/P/Bld) [Vol rate/Area]Ordered By: Rigoberto Durand on 09-27-2024 Estimated GFR (MDRD) Non-Af Amer 26 Low >60 [facility] Comment on above: mL/min/1.73m2 CKD-EP I Creatinine Equation (2020) Glomerular filtration rate ( GFR) estimation/1.73 sq m using serum, plasma, or whole bOrdered By: Rigoberto Durand on 09-27-2024 GFR/1.73 sq M.predicted among non-blacks MDRD (S/P/Bld) [Vol rate/Area] 26 mL/min/{1.73_m2} Low >60 [facility] Comment on above: mL/min/1.73m2 CKD-EP I Creatinine Equation (2020) Hemoglobin A1con 09-27-2024 HbA1c (Bld) [Mass fraction] 6.5 % Normal <=5.6 [facility] Comment on above: Performed By: #### L 501.080 #### [facility] [address] [place], [address] Hemoglobin A1c percentageOrd ered By: Rigoberto Durand on 09-27-2024 HbA1c (Bld) [Mass fraction] 6.5 % >5.7 [facility] LDL calc ser/plasOrdered By: Rigoberto Durand on 09-27-2024 Cholesterol in LDL [Mass/Vol] 82 mg/dL [facility] Comment on above: Rgzdvwjuzd=761-769 m g/dL & Higher Eisy=594 mg/dL or greater LDL Cholesterol, Calculated 82 mg/dL [facility] Comment on above: Kxvslrlhxb=532-768 m g/dL & Higher Ojbt=949 mg/dL or greater Lipid Profileon 09-27-2024 CHOL:HDL 4.51 Normal [facility] Comment on above: Performed By: #### L 501.080 #### [facility] [address] [place], [place], [id number] Cholesterol [Mass/Vol] 152 mg/dL Normal <=200 [facility] Comment on above: Result Comment: Chol esterol level, Desirable <200 mg/dL Borderline high cholesterol 200-239 mg/dL High cholesterol >=240 mg/dL Recommendations of the NCEP Adult Treatment Panel for the following risk-cutoff thresholds for the [place] population. Performed By: #### L 501.080 #### [facility] [address] [place], [address] Cholesterol in HDL [Mass/Vol] 34 mg/dL Low [facility] Comment on above: Result Comment: [place]y onal Cholesterol Education Program (NCEP) guidelines: <40 mg/dL: Low HDL-cholesterol (major risk factor for CHD) >= 60 mg/dL: High HDL-cholesterol (negative risk factor for CHD) HDL-cholesterol is affected by a number of factors, e.g. smoking, exercise, hormones, sex and age. Performed By: #### L 501.080 #### [facility] [address] [place], [address] Cholesterol in LDL [Mass/Vol] 82 mg/dL Normal [facility] Comment on above: Result Comment: Bord onpxci=550-728 mg/dL Higher Qoln=722 mg/dL or greater Performed By: #### L 501.080 #### [facility] [address] [place], [address] Cholesterol in VLDL [Mass/Vol] 36 mg/dL Normal 5-40 [facility] Comment on above: Performed By: #### L 501.080 #### [facility] [address] [place], [address] Triglyceride [Mass/Vol] 182 mg/dL Normal [facility] Comment on above: Result Comment: The drugs N-Acetylcysteine and Metamizole may falsely depress this assay. Normal range: <150 mg/dL Borderline High: 150-199 mg/dL High: 200-499 mg/dL Very High: >500 mg/dL Performed By: #### L 501.080 #### [facility] [address] [place], [address] Microalb:Creat Ratio,Random URon 09-27-2024 Creatinine [Mass/Vol] 42.10 mg/dL Normal 39-259 [facility] Comment on above: Performed By: #### L 501.080 #### [facility] [address] [place], [address] MALB:CREAT UNABLE TO CALCULATE Normal [facility] Comment on above: Performed By: #### L 501.080 #### [facility] [address] [place], [place], [id number] MICROALBUMIN,UR < 12.0 Normal NO RANGE EST. [facility] Comment on above: Performed By: #### L 501.080 #### [facility] [address] [place], [place], [address] Microalbumin/creat ratio urO rdered By: Rigoberto Durand on 09-27-2024 Urine Microalbumin/Creatinine Ratio UNABLE TO CALCULATE mg/g CRE [facility] Urine microalbumin/creatinine ratio measurement UNABLE TO CALCULATE mg/g CRE [facility] PSA, total screeningOrdered By: Rigoberto Durand on 09-27-2024 Prostate Specific Antigen Screen 0.68 ng/mL 0.02-4.00 [facility] Comment on above: This test [...] 09-27-2024 PSA,TOT SCREEN 0.68 ng/mL Normal 0.02-4.00 [facility] Comment on above: Result Comment: This test was performed using the [employer] tPSA method. Measured values of a patient??sample can vary depending on the testing procedure used. PSA values determined on patient samples by different testing procedures cannot be used interchangeably. If there is a change in PSA assays while monitoring therapy, sequential testing should be performed to confirm baseline values. Performed By: #### L 501.080 #### [facility] [address] [place], [place], [id number] Potassium (Unsp spec) [Mass/ Vol]Ordered By: Rigoberto Durand on 09-27-2024 Potassium [Moles/Vol] 4.0 mmol/L 3.3-5.1 [facility] Potassium measurement (mass/ volume)Ordered By: Rigoberto Durand on 09-27-2024 Potassium (Unsp spec) [Mass/Vol] 4.0 mmol/L 3.3-5.1 [facility] Random urine creatinine geena urement (mass/volume)Ordered By: Rigoberto Durand on 09-27-2024 Creatinine Unsp time (U) [Mass/Vol] 42.10 mg/dL 39-259 [facility] Screening total cholesterol/ high density lipoprotein (HDL) cholesterol ratioOrdered By: Rigoberto Durand on 09-27-2024 Cholesterol.total/Choles terol in HDL [Mass ratio] 4.51 {ratio} [facility] Serum creatinine measurement (mass/volume)Ordered By: Rigoberto Durand on 09-27-2024 Creatinine [Mass/Vol] 2.36 mg/dL High 0.70-1.20 [facility] Serum glucose measurement (m ass/volume)Ordered By: Rigoberto Durand on 09-27-2024 Glucose [Mass/Vol] 142 mg/dL High 70-99 [facility] Serum or plasma calcium geena urement (mass/volume)Ordered By: Rigoberto Durand on 09-27-2024 Calcium [Mass/Vol] 8.9 mg/dL 7.6-11.0 [facility] Serum or plasma cholesterol in HDL measurement (mass/volume)Ordered By: Rigoberto Durand on 09-27-2024 Cholesterol in HDL [Mass/Vol] 34 mg/dL Low >40 [facility] Comment on above: National Cholesterol Education Program (NCEP) guidelines:<40 mg/dL: Low HDL-cholesterol (major risk factor for CHD)>= 60 mg/dL: High HDL-cholesterol (negative risk factor for CHD)HDL-cholesterol is affected by a number of factors, e.g. smoking, exercise, hormones, sex and age. Serum or plasma cholesterol measurement (mass/volume)Ordered By: Rigoberto Durand on 09-27-2024 Cholesterol [Mass/Vol] 152 mg/dL <201 [facility] Comment on above: Cholesterol level, D esirable <200 mg/dLBorderline high cholesterol 200-239 mg/dLHigh cholesterol >=240 mg/dLRecommendations of the NCEP Adult Treatment Panel for the following risk-cutoff thresholds for the [place] population. Serum or plasma urea nitroge n measurement (mass/volume)Ordered By: Rigoberto Durand on 09-27-2024 Urea nitrogen [Mass/Vol] 34 mg/dL High 4-19 [facility] Sodium levelOrdered By: Rigoberto Durand on 09-27-2024 Sodium [Moles/Vol] 140 mmol/L 133-145 [facility] Triglycerides measurementOrd ered By: Rigoberto Durand on 09-27-2024 Triglyceride [Mass/Vol] 182 mg/dL <199 [facility] Comment on above: The drugs N-Acetylcy steine and Metamizole may falsely depress this assay. Normal range: <150 mg/dLBorderline High: 150-199 mg/dLHigh: 200-499 mg/dLVery High: >500 mg/dL Urine albumin measurement wi th detection limit of 20 mg/L or less (mass/volume)Ordered By: Rigoberto Durand on 09-27-2024 Albumin DL <= 20 mg/L (U) [Mass/Vol] < 12.0 mg/L NO RANGE EST. [facility] Progress Noteon 09-22-2024 Progress Note [facility] Telehealth Cardiology Note DATE of [...] HFrEF (heart failure with reduced ejection fraction) ([facility]) 09/22/2020 Bladder cancer ([facility]) CHF (congestive heart failure) ([facility]) Chronic HFrEF (heart failure with reduced ejection fraction) ([facility]) 09/21/2020 Chronic kidney disease DM (diabetes mellitus) [facility] [facility]ITAL) DM (diabetes mellitus) ([facility]) DVT (deep venous thrombosis) ([facility]) ED (erectile dysfunction) Follicular non-Hodgkin's lymphoma ([facility]) GERD (gastroesophageal reflux disease) GERD (gastroesophageal reflux disease) HTN (hypertension) HTN (hypertension) Hyperlipidemia Left bundle branch block 09/11/2020 Non-ischemic cardiomyopathy (CMS/HCC) ([facility]) Presence of cardiac resynchronization therapy defibrillator (DISCHARGE COORDINATOR-D) 01/17/2022 PUD (peptic ulcer disease) Pulmonary embolism ([facility]) Pulmonary fibrosis ([facility]) Rosacea Stage 3b chronic kidney disease ([facility]) 09/21/2020 Tachycardia Past Surgical History Past Surgical [...] tablet, Rfl: 1 (more content not included)... [facility] 36on 07-28-2024 36 ----- Message from Gibson Lamb sent at 07/28/2024 8:57 AM EST ----- Regarding: RE: Clinic check Called and spoke with the patient regarding both appointments (dates/time) for 09-22-2024 at the [facility]. ----- Message ----- From: iD Hernández RN Sent: 07/28/2024 8:40 AM EST [...] can R/S him with you at the [place] office on 08-04-2024 @ 10:30. [facility] 36on 07-20-2024 36 JAYMEI Everton Renteria OFFICE RN-TUBE DRAW HELPER 01/09/24, labs 01/09/24. Rx pended. [place] [id number] 06-16-2024 36 Last OV with Everton Renteria on 01/09/[address] 06-15-2024 36 Patient called [facility] and wanted to see if he could fill his cialis through our pharmacy, He does not have refills at [facility] pharmacy for this and It the last prescription that was sent to [facility] has no refills on it. Patient requested that we ask the cardio provider that prescribed it last time for refills. If appropriate please send prescription to [facility] pharmacy, Rx pended for review, Thank you! [facility] 36 Last OV with Everton Renteria on 01/09/24 BMP 01/09/24 [facility] Basic Metabolic Profile (BMP )on 04-16-2024 BUN/CRE 16.9 RATIO Normal 10-20 [facility] Comment on above: Performed By: #### L 501.2450, L500.4050, L100.0100 #### [facility] [address] [place], [place], [id number] [place],Total 8.7 mg/dL Normal 8.5-10.1 [facility] Comment on above: Result Comment: Slig ht Lipemia, Result may be falsely increased. Performed By: #### L 501.2450, [id number], L100.0100 #### [facility] [address] [place], [address] Chloride [Moles/Vol] 100 mmol/L Normal 98-107 [facility] Comment on above: Performed By: #### L 501.2450, [id number], L100.0100 #### [facility] [address] [place], [address] CO2 [Moles/Vol] 27.0 mmol/L Normal 21.0-32.0 [facility] Comment on above: Result Comment: Slig ht Lipemia, Result may be falsely increased. Performed By: #### L [id number], [id number], L100.0100 #### [facility] [address] [place], [address] Creatinine [Mass/Vol] 2.61 mg/dL High 0.70-1.30 [facility] Comment on above: Result Comment: Slig ht Lipemia, Result may be falsely increased. The validity of the calculated GFR GFRAA in patients over 70 years has not been determined. Clinical correlation is essential. Performed By: #### L 501.2450, [id number], L100.0100 #### [facility] [address] [place], [address] EST GFR - AA 30 mL/min Low >60 [facility] Comment on above: Result Comment: Afri can Indian GFR Calc Performed By: #### L [id number], [id number], L100.0100 #### [facility] [address] [place], [address] GAP 10 Normal 5-15 [facility] Comment on above: Performed By: #### L 501.2450, [id number], L100.0100 #### [facility] [address] [place], [address] GFR/1.73 sq M.predicted among non-blacks MDRD (S/P/Bld) [Vol rate/Area] 25 mL/min/{1.73_m2} Low >60 [facility] Comment on above: Result Comment: Non- GFR Calc Performed By: #### L 501.2450, [id number], L100.0100 #### [facility] [address] [place], [address] Glucose [Mass/Vol] 161 mg/dL High 74-106 [facility] Comment on above: Result Comment: Slig ht Lipemia, Result may be falsely increased. Fasting Glucose result greater than or equal to 126 mg/dL suggests DIABETES MELLITUS per A.D.A. criteria. Performed By: #### L 501.2450, [id number], L100.0100 #### [facility] [address] [place], [address] Potassium [Moles/Vol] 3.4 mmol/L Low 3.5-5.1 [facility] Comment on above: Result Comment: Slig ht Lipemia, Result may be falsely increased. Performed By: #### L [id number], [id number], L100.0100 #### [facility] [address] [place], [address] Sodium [Moles/Vol] 136 mmol/L Normal 136-145 [facility] Comment on above: Performed By: #### L 501.2450, [id number], L100.0100 #### [facility] [address] [place], [address] Urea nitrogen [Mass/Vol] 44 mg/dL High 7-18 [facility] Comment on above: Result Comment: Slig ht Lipemia, Result may be falsely increased. Performed By: #### L [id number], [id number], L100.0100 #### [facility] [address] [place], [address] Lipid Profileon 04-16-2024 Cholesterol [Mass/Vol] 274 mg/dL High 200 [facility] Comment on above: Result Comment: Slig ht Lipemia, Result may be falsely increased. <200 mg/dL Desirable 200-240 mg/dL Borderline >240 mg/dL High Risk Performed By: #### L 501.2450, [id number], L100.0100 #### [facility] [address] [place], [address] Cholesterol in HDL [Mass/Vol] 28 mg/dL Low [facility] Comment on above: Result Comment: The drugs N-Acetylcysteine and Metamizole may falsely depress this assay. Reference Range HDL <40 mg/dL Low HDL Cholesterol HDL >or= 60 mg/dL High HDL Cholesterol Performed By: #### L 501.2450, [id number], L100.0100 #### [facility] [address] [place], [address] LDL TNP Normal 0-130 [facility] Comment on above: Performed By: #### L 501.2450, [id number], L100.0100 #### [facility] [address] [place], [address] Triglyceride [Mass/Vol] 644 mg/dL High [facility] Comment on above: Result Comment: The drugs [...] = 500 mg/dL Performed By: #### L 501.2450, [id number], L100.0100 #### [facility] [address] [place], [address] VLDL TNP Normal 5-40 [facility] Comment on above: Performed By: #### L [id number], [id number], L100.0100 #### [facility] [address] [place], [address] Thyroid Stim Hormone (TSH)on 04-16-2024 TSH 1.380 uIU/mL Normal 0.358-3.740 [facility] Comment on above: Performed By: #### L 501.2450, [id number], L100.0100 #### [facility] [address] [place], [address] 36on 03-20-2024 36 There is very little difference between the vasodilators sildenafil and tadalafil. I will make the switch and discuss it with him at my next visit. [facility] 36on 03-19-2024 36 [facility] spoke with patient today; he [...] therapy change appropriate please send prescription to [facility] pharmacy, Thank you so much! [facility] 36on 03-18-2024 36 Last OV with Everton Renteria on 01/09/24 BMP 01/09/24 [facility] 36 Refill requested. RX pended. Thanks! [facility] Absolute lymphocyte countOrd ered By: Shaun Taveras on 11-27-2023 Lymphocytes Auto (Unsp spec) [#/Vol] 0.54 10*3/uL 0.83-4.51 [facility] Automated lymphocyte count a s percentage of total leukocytesOrdered By: Shaun Taveras on 11-27-2023 Lymphocytes/100 WBC Auto (Unsp spec) 2.1 % 19-41 [facility] Basophil percentageOrdered B y: Shaun Taveras on 11-27-2023 Lactate [Moles/Vol] 1.2 mmol/L 0.4-2.[address] [facility] Basophil percentage 0 SEEN /hpf 0-5 [facility] Basophils/100 WBC (Bld) 0.3 % 0-1 [facility] Chloride [Moles/Vol] 95 mmol/L 98-107 [facility] Eosinophils/100 WBC (Bld) 0.4 % 0-5 [facility] Glucose [Mass/Vol] 214 mg/dL 74-106 [facility] Comment on above: Glucose result great er than or equal to 200 mg/dLsuggests DIABETES MELLITUS per A.D.A. criteria. Hemoglobin (Bld) [Mass/Vol] 11.1 g/dL 13.0-16.5 [facility] Monocytes/100 WBC (Bld) 4.0 % 0-10 [facility] Neutrophils (Bld) [#/Vol] 23.2 10*3/uL 2.0-7.7 [facility] Neutrophils/100 WBC (Bld) 90.4 % 47-70 [facility] Potassium [Moles/Vol] 3.2 mmol/L 3.5-5.1 [facility] Sodium [Moles/Vol] 132 mmol/L 136-145 [facility] WBC (Bld) [#/Vol] 25.7 10*3/uL 4.4-11.[address] [facility] Bilirubin Test strip Ql (U)O rdered By: Shaun Taveras on 11-27-2023 Bilirubin Ql (U) Negative Negative [facility] Blood manual differential co mment interpretation (narrative result)Ordered By: Shaun Taveras on 11-27-2023 Manual differential comment Raymond (Bld) [Interp] SCANNED [facility] Determination of erythrocyte mean corpuscular volume (MCV)Ordered By: Shaun Taveras on 11-27-2023 MCV (RBC) [Entitic vol] 90.6 fL 80-94 [facility] Erythrocyte distribution wid th ratioOrdered By: Shaun Taveras on 11-27-2023 Erythrocyte distribution width (RBC) [Ratio] 13.7 % 11.6-14.6 [facility] Erythrocyte distribution wid th standard deviationOrdered By: Shaun Taveras on 11-27-2023 Erythrocyte distribution width (RBC) [Entitic vol] 45.2 fL 35.1-43.9 [facility] Hematocrit Auto (Bld) [Volum e fraction]Ordered By: Shaun Taveras on 11-27-2023 Hematocrit (Bld) [Volume fraction] 34.6 % 40-54 [facility] Immature granulocytes/100 WB C Auto (Bld)Ordered By: Shaun Taveras on 11-27-2023 Immature granulocytes/100 WBC (Bld) 2.800 % 0.0-0.9 [facility] Comment on above: IG% - Immature Granu locytes (promyelocytes, myelocytes and metamyelocytes) > 1% indicates that a LEFT SHIFT is Present. Ketones Test strip Ql (U)Ord ered By: Shaun Taveras on 11-27-2023 Ketones Ql (U) Negative Negative [facility] Laboratory - Chemistry and C hemistry - challengeOrdered By: Shaun Taveras on 11-27-2023 CK [Catalytic activity/Vol] 2351 U/L 39-308 [facility] CO2 [Moles/Vol] 23.0 mmol/L 21.0-32.0 [facility] Magnesium [Mass/Vol] 1.8 mg/dL 1.6-2.6 [facility] Natriuretic peptide B (Bld) [Mass/Vol] 610.2 pg/mL 0-100 [facility] Urea nitrogen/Creatinine [Mass ratio] 17.9 mg/mg 10-20 [facility] Laboratory - Hematology and Cell countsOrdered By: Shaun Taveras on 11-27-2023 MCH (RBC) [Entitic mass] 29.1 pg 27.0-32.0 [facility] MCHC (RBC) [Mass/Vol] 32.1 g/dL 32-36 [facility] Nucleated RBC/100 WBC (Bld) [Ratio] 0 % 0-5 [facility] Platelet mean volume (Bld) [Entitic vol] 11.3 fL 6.2-12.0 [facility] Platelets (Bld) [#/Vol] 226 10*3/uL 150-450 [facility] - Microbiology an d Antimicrobial susceptibilityOrdered By: Shaun Taveras on 11-27-2023 SARS-CoV-2 (COVID-19) RNA SUDEEP+probe Ql (Unsp spec) [facility] Mucus LM Ql (Urine sed)Order ed By: Shaun Taveras on 11-27-2023 Mucus Ql (Urine sed) 0 SEEN /hpf [facility] Nitrite Test strip Ql (U)Ord ered By: Shaun Taveras on 11-27-2023 Nitrite Ql (U) Negative Negative [facility] No Panel InformationOrdered By: Shaun Taveras on 11-27-2023 Urine RBC 0 SEEN /hpf 0-5 [facility] Estimated Creatinine Clearance Calc 15.27 ml/min [facility] Estimated GFR (MDRD) Amer 19 mL/min >60 [facility] Comment on above: GFR Calc Estimated GFR (MDRD) Non-Af Amer 16 mL/min >60 [facility] Comment on above: Non- GFR Calc Protein Test strip Ql (U)Ord ered By: Shaun Taveras on 11-27-2023 Protein Ql (U) Negative Negative [facility] RBC Auto (Bld) [#/Vol]Ordere d By: Shaun Taveras on 11-27-2023 RBC (Bld) [#/Vol] 3.82 10*6/uL 4.6-6.[address] [facility] Serum or plasma calcium geena urement (mass/volume)Ordered By: Shaun Taveras on 11-27-2023 Calcium [Mass/Vol] 8.7 mg/dL 8.5-10.1 [facility] Serum or plasma creatinine m easurement (mass/volume)Ordered By: Shaun Taveras on 11-27-2023 Creatinine [Mass/Vol] 3.86 mg/dL 0.70-1.30 [facility] Comment on above: The validity of the calculated GFR & GFRAA in patients over 70 years has not been determined. Clinical correlation is essential. Serum or plasma thyroid stim ulating hormone (TSH) measurement (units/volume)Ordered By: Shaun Taveras on 11-27-2023 TSH Qn 1.10 uIU/mL 0.358-3.74 [facility] Serum or plasma urea nitroge n measurement (mass/volume)Ordered By: Shaun Taveras on 11-27-2023 Urea nitrogen [Mass/Vol] 69 mg/dL 7-18 [facility] Squamous epithelial cells de tection in urine sediment by light microscopyOrdered By: Shaun Taveras on 11-27-2023 Epithelial cells.squamous LM Ql (Urine sed) 0 SEEN /hpf 0-5 [facility] Thin prep Papanicolaou smear with manual screeningOrdered By: Shaun Taveras on 11-27-2023 Thin prep Papanicolaou smear with manual screening 14 5-15 [facility] Urine blood detectionOrdered By: Shaun Taveras on 11-27-2023 RBC Ql (U) Negative Negative [facility] Urine clarityOrdered By: Doug Taveras on 11-27-2023 Clarity (U) Clear Clear [facility] Urine color determinationOrd ered By: Shaun Taveras on 11-27-2023 Color (U) Yellow Yellow [facility] Urine glucose detectionOrder ed By: Shaun Taveras on 11-27-2023 Glucose Ql (U) Normal mg/dl Normal [facility] Urine leukocyte esterase det ection by dipstickOrdered By: Shaun Taveras on 11-27-2023 Leukocyte esterase Test strip Ql (U) Negative Negative [facility] Urine pHOrdered By: Shaun gregg on 11-27-2023 pH (U) 5.0 [pH] 5.0 - 8.0 [facility] Urine sediment bacteria coun t by microscopy (number/high power field)Ordered By: Shaun Taveras on 11-27-2023 Bacteria LM.HPF (Urine sed) [#/Area] 0 /[HPF] None Seen [facility] Urine specific gravity measu rementOrdered By: Shaun Taveras on 11-27-2023 Specific gravity (U) [Rel density] 1.015 1.002-1.030 [facility] Urine urobilinogen measureme ntOrdered By: Shaun Taveras on 11-27-2023 Urobilinogen Ql (U) Normal mg/dl Normal [facility] Basophil percentageOrdered B y: Rigoberto Durand on 08-29-2023 Chloride [Moles/Vol] 100 mmol/L 98-107 [facility] Glucose [Mass/Vol] 185 mg/dL 74-106 [facility] Comment on above: Fasting Glucose resu lt greater than or equal to 126 mg/dL suggests DIABETES MELLITUS per A.D.A. criteria. Potassium [Moles/Vol] 3.6 mmol/L 3.5-5.1 [facility] Sodium [Moles/Vol] 136 mmol/L 136-145 [facility] Laboratory - Chemistry and C hemistry - challengeOrdered By: Rigoberto Durand on 08-29-2023 CO2 [Moles/Vol] 30.0 mmol/L 21.0-32.0 [facility] Urea nitrogen/Creatinine [Mass ratio] 16.7 mg/mg 10-20 [facility] No Panel InformationOrdered By: Rigoberto Durand on 08-29-2023 Estimated GFR (MDRD) Amer 36 mL/min >60 [facility] Comment on above: GFR Calc Estimated GFR (MDRD) Non-Af Amer 29 mL/min >60 [facility] Comment on above: Non- GFR Calc Free Triiodothyronine (T3) pg/dL 1.8 pg/mL 2.18-3.98 [facility] Serum or plasma calcium geena urement (mass/volume)Ordered By: Rigoberto Durand on 08-29-2023 Calcium [Mass/Vol] 9.1 mg/dL 8.5-10.1 [facility] Serum or plasma creatinine m easurement (mass/volume)Ordered By: Rigoberto Durand on 08-29-2023 Creatinine [Mass/Vol] 2.27 mg/dL 0.70-1.30 [facility] Comment on above: The validity of the calculated GFR & GFRAA in patients over 70 years has not been determined. Clinical correlation is essential. Serum or plasma thyroid stim ulating hormone (TSH) measurement (units/volume)Ordered By: Rigoberto Durand on 08-29-2023 TSH Qn 2.06 uIU/mL 0.358-3.74 [facility] Serum or plasma urea nitroge n measurement (mass/volume)Ordered By: Rigoberto Durand on 08-29-2023 Urea nitrogen [Mass/Vol] 38 mg/dL 7-18 [facility] Thin prep Papanicolaou smear with manual screeningOrdered By: Rigoberto Durand on 08-29-2023 Thin prep Papanicolaou smear with manual screening 6 5-15 [facility] Thin prep Papanicolaou smear with manual screening 1.12 ng/dL 0.76-1.46 [facility] Basophil percentageOrdered B y: Rigoberto Durand on 06-02-2023 Bilirubin [Mass/Vol] 0.70 mg/dL 0.20-1.00 [facility] Comment on above: For patients on eltr ombopag therapy, use of Dimension [place] TBIL is not recommended. Chloride [Moles/Vol] 101 mmol/L 98-107 [facility] Cholesterol [Mass/Vol] 181 mg/dL <200 [facility] Comment on above: <200 mg/dL Desirable 200-240 mg/dL Borderline >240 mg/dL High Risk Glucose [Mass/Vol] 162 mg/dL 74-106 [facility] Comment on above: Fasting Glucose resu lt greater than or equal to 126 mg/dL suggests DIABETES MELLITUS per A.D.A. criteria. Potassium [Moles/Vol] 3.8 mmol/L 3.5-5.1 [facility] Protein [Mass/Vol] 7.3 g/dL 6.4-8.2 [facility] Sodium [Moles/Vol] 138 mmol/L 136-145 [facility] Triglyceride [Mass/Vol] 265 mg/dL <199 [facility] Comment on above: The drugs N-Acetylcy steine and Metamizole may falsely depress this assay.Serum Triglycerides Reference Interval Normal <150 mg/dL Borderline high 150 - 199 mg/dL High 200 - 499 mg/dL Very High > or = 500 mg/dL Laboratory - Chemistry and C hemistry - challengeOrdered By: Rigoberto Durand on 06-02-2023 ALP [Catalytic activity/Vol] 136 U/L 45-117 [facility] ALT [Catalytic activity/Vol] 30 U/L 16-61 [facility] CO2 [Moles/Vol] 27.0 mmol/L 21.0-32.0 [facility] Globulin (S) [Mass/Vol] 3.5 g/dL 2.2-4.2 [facility] Urea nitrogen/Creatinine [Mass ratio] 19.8 mg/mg 10-20 [facility] No Panel InformationOrdered By: Rigoberto Durand on 06-02-2023 Estimated GFR (MDRD) Amer 31 mL/min >60 [facility] Comment on above: GFR Calc Estimated GFR (MDRD) Non-Af Amer 26 mL/min >60 [facility] Comment on above: Non- GFR Calc Prostate Specific Antigen Screen 0.50 ng/mL 0.00-4.00 [facility] Comment on above: This test was perfor med using the TPSA assay method for the[employer] chemistry system. Values obtained with differentassay methods cannot be used interchangably.When changing PSA assays in the course of monitoring apatient, additional sequential testing should be carriedout to confirm baseline values. Serum or plasma albumin geena urement (mass/volume)Ordered By: Rigoberto Durand on 06-02-2023 Albumin [Mass/Vol] 3.8 g/dL 3.2-5.0 [facility] Serum or plasma albumin/glob ulin mass ratioOrdered By: Rigoberto Durand on 06-02-2023 Albumin/Globulin [Mass ratio] 1.1 {ratio} 0.9-2.4 [facility] Serum or plasma calcium geena urement (mass/volume)Ordered By: Rigoberto Durand on 06-02-2023 Calcium [Mass/Vol] 8.3 mg/dL 8.5-10.1 [facility] Serum or plasma cholesterol in HDL measurement (mass/volume)Ordered By: Rigoberto Durand on 06-02-2023 Cholesterol in HDL [Mass/Vol] 37 mg/dL >40 [facility] Comment on above: The drugs N-Acetylcy steine and Metamizole may falsely depress this assay. Reference Range HDL <40 mg/dL Low HDL Cholesterol HDL >or= 60 mg/dL High HDL Cholesterol Serum or plasma cholesterol in VLDL measurement (mass/volume)Ordered By: Rigoberto Durand on 06-02-2023 Cholesterol in VLDL [Mass/Vol] 53 mg/dL 5-40 [facility] Serum or plasma creatinine m easurement (mass/volume)Ordered By: Rigoberto Durand on 06-02-2023 Creatinine [Mass/Vol] 2.53 mg/dL 0.70-1.30 [facility] Comment on above: The validity of the calculated GFR & GFRAA in patients over 70 years has not been determined. Clinical correlation is essential. Serum or plasma low density lipoprotein (LDL) cholesterol measurement (mass/volume)Ordered By: Rigoberto Durand on 06-02-2023 Cholesterol in LDL [Mass/Vol] 91 mg/dL 0-130 [facility] Serum or plasma urea nitroge n measurement (mass/volume)Ordered By: Rigoberto Durand 06-02-2023 Urea nitrogen [Mass/Vol] 50 mg/dL 7-18 [facility] Thin prep Papanicolaou smear with manual screeningOrdered By: Rigoberto Durand on 06-02-2023 Thin prep Papanicolaou smear with manual screening 17 U/L 15-37 [facility] Thin prep Papanicolaou smear with manual screening 10 -15 [facility] Basophil percentageOrdered B y: Rigoberto Durand on 03-04-2023 Chloride [Moles/Vol] 101 mmol/L 98-107 [facility] Cholesterol [Mass/Vol] 287 mg/dL <200 [facility] Comment on above: <200 mg/dL Desirable 200-240 mg/dL Borderline >240 mg/dL High Risk Glucose [Mass/Vol] 173 mg/dL 74-106 [facility] Comment on above: Fasting Glucose resu lt greater than or equal to 126 mg/dL suggests DIABETES MELLITUS per A.D.A. criteria. Potassium [Moles/Vol] 3.6 mmol/L 3.5-5.1 [facility] Sodium [Moles/Vol] 137 mmol/L 136-145 [facility] Triglyceride [Mass/Vol] 576 mg/dL <199 [facility] Comment on above: The drugs N-Acetylcy steine and Metamizole may falsely depress this assay. TRIGLYCERIDE IS GREATER THAN 400 mg/dL. LDL RESULT IS INVALID AND WILL NOT BE REPORTED.Serum Triglycerides Reference Interval Normal <150 mg/dL Borderline high 150 - 199 mg/dL High 200 - 499 mg/dL Very High > or = 500 mg/dL Laboratory - Chemistry and C hemistry - challengeOrdered By: Rgioberto Durand on 03-04-2023 CO2 [Moles/Vol] 29.0 mmol/L 21.0-32.0 [facility] Urea nitrogen/Creatinine [Mass ratio] 14.5 mg/mg 10- [facility] No Panel InformationOrdered By: Rigoberto Durand on 03-04-2023 Estimated GFR (MDRD) Amer 33 mL/min >60 [facility] Comment on above: GFR Calc Estimated GFR (MDRD) Non-Af Amer 27 mL/min >60 [facility] Comment on above: Non- GFR Calc Serum or plasma calcium geena urement (mass/volume)Ordered By: Rigoberto Durand on 08-15-2023 Calcium [Mass/Vol] 8.8 mg/dL 8.5-10.1 [facility] Serum or plasma cholesterol in HDL measurement (mass/volume)Ordered By: Rigoberto Durand on 03-04-2023 Cholesterol in HDL [Mass/Vol] 27 mg/dL >40 [facility] Comment on above: The drugs N-Acetylcy steine and Metamizole may falsely depress this assay. Reference Range HDL <40 mg/dL Low HDL Cholesterol HDL >or= 60 mg/dL High HDL Cholesterol Serum or plasma cholesterol in VLDL measurement (mass/volume)Ordered By: Rigoberto Durand on 03-04-2023 Cholesterol in VLDL [Mass/Vol] TNP [facility] Comment on above: Test not performed Serum or plasma creatinine m easurement (mass/volume)Ordered By: Rigoberto Durand on 03-04-2023 Creatinine [Mass/Vol] 2.41 mg/dL 0.70-1.30 [facility] Comment on above: The validity of the calculated GFR & GFRAA in patients over 70 years has not been determined. Clinical correlation is essential. Serum or plasma low density lipoprotein (LDL) cholesterol measurement (mass/volume)Ordered By: Rigoberto Durand on 03-04-2023 Cholesterol in LDL [facility]Mass[facility]] [facility] on above: Test not performed Serum or plasma urea nitroge n measurement (mass/volume)Ordered By: Rigoberto Durand on 03-04-2023 Urea nitrogen [Mass/Vol] 35 mg/dL 02-04 [facility] Thin prep Papanicolaou smear with manual screeningOrdered By: Rigoberto Durand on 03-04-2023 Thin prep Papanicolaou smear with manual screening 12-02 [facility] Basophil percentageOrdered B y: Dr. Durand on 08-26-2022 Chloride [Moles/Vol] 99 mmol/L 98-107 [facility] Cholesterol [Mass/Vol] 143 mg/dL <200 [facility] Comment on above: <200 mg/dL Desirable 200-240 mg/dL Borderline >240 mg/dL High Risk Glucose [Mass/Vol] 156 mg/dL 74-106 [facility] Comment on above: Fasting Glucose resu lt greater than or equal to 126 mg/dL suggests DIABETES MELLITUS per A.D.A. criteria. Potassium [Moles/Vol] 3.7 mmol/L 3.5-5.1 [facility] Sodium [Moles/Vol] 138 mmol/L 136-145 [facility] Triglyceride [Mass/Vol] 370 mg/dL <199 [facility] Comment on above: The drugs N-Acetylcy steine and Metamizole may falsely depress this assay.Serum Triglycerides Reference Interval Normal <150 mg/dL Borderline high 150 - 199 mg/dL High 200 - 499 mg/dL Very High > or = 500 mg/dL Laboratory - Chemistry and C hemistry - challengeOrdered By: Dr. Durand on 08-26-2022 CO2 [Moles/Vol] 28.0 mmol/L 21.0-32.0 [facility] Free T4 [Mass/Vol] 0.97 ng/dL 0.76-1.46 [facility] Urea nitrogen/Creatinine [Mass ratio] 18.5 mg/mg 10-20 [facility] No Panel InformationOrdered By: Dr. Durand on 08-26-2022 Estimated GFR (MDRD) Amer 26 mL/min >60 [facility] Comment on above: GFR Calc Estimated GFR (MDRD) Non-Af Amer 22 mL/min >60 [facility] Comment on above: Non- GFR Calc Free Triiodothyronine (T3) pg/dL 1.5 pg/mL 2.18-3.98 [facility] Thyroid Stimulating Hormone (TSH) 2.24 uIU/mL 0.358-3.74 [facility] Total Triiodothyronine 0.52 ng/mL 0.6-1.81 [facility] Serum or plasma calcium geena urement (mass/volume)Ordered By: Dr. Durand on 08-26-2022 Calcium [Mass/Vol] 8.9 mg/dL 8.5-10.1 [facility] Serum or plasma cholesterol in HDL measurement (mass/volume)Ordered By: Dr. Durand on 08-26-2022 Cholesterol in HDL [Mass/Vol] 32 mg/dL >40 [facility] Comment on above: The drugs N-Acetylcy steine and Metamizole may falsely depress this assay. Reference Range HDL <40 mg/dL Low HDL Cholesterol HDL >or= 60 mg/dL High HDL Cholesterol Serum or plasma cholesterol in VLDL measurement (mass/volume)Ordered By: Dr. Durand on 08-26-2022 Cholesterol in VLDL [Mass/Vol] 74 mg/dL 5-40 [facility] Serum or plasma creatinine m easurement (mass/volume)Ordered By: Dr. Durand on 08-26-2022 Creatinine [Mass/Vol] 2.98 mg/dL 0.70-1.30 [facility] Comment on above: The validity of the calculated GFR & GFRAA in patients over 70 years has not been determined. Clinical correlation is essential. Serum or plasma low density lipoprotein (LDL) cholesterol measurement (mass/volume)Ordered By: Dr. Durand on 08-26-2022 Cholesterol in LDL [Mass/Vol] 37 mg/dL 0-130 [facility] Serum or plasma urea nitroge n measurement (mass/volume)Ordered By: Dr. Durand on 08-26-2022 Urea nitrogen [Mass/Vol] 55 mg/dL 7-18 [facility] Thin prep Papanicolaou smear with manual screeningOrdered By: Dr. Durand on 08-26-2022 Thin prep Papanicolaou smear with manual screening 11 5-15 [facility] Basophil percentageOrdered B y: Dr. Durand on 05-16-2022 Chloride [Moles/Vol] 98 mmol/L 98-107 [facility] Cholesterol [Mass/Vol] 149 mg/dL <200 [facility] Comment on above: <200 mg/dL Desirable 200-240 mg/dL Borderline >240 mg/dL High Risk Glucose [Mass/Vol] 147 mg/dL 74-106 [facility] Comment on above: Fasting Glucose resu lt greater than or equal to 126 mg/dL suggests DIABETES MELLITUS per A.D.A. criteria. Potassium [Moles/Vol] 3.8 mmol/L 3.5-5.1 [facility] Sodium [Moles/Vol] 135 mmol/L 136-145 [facility] Triglyceride [Mass/Vol] 271 mg/dL <199 [facility] Comment on above: The drugs N-Acetylcy steine and Metamizole may falsely depress this assay.Serum Triglycerides Reference Interval Normal <150 mg/dL Borderline high 150 - 199 mg/dL High 200 - 499 mg/dL Very High > or = 500 mg/dL Laboratory - Chemistry and C hemistry - challengeOrdered By: Dr. Durand on 05-16-2022 CO2 [Moles/Vol] 27.0 mmol/L 21.0-32.0 [facility] Free T4 [Mass/Vol] 0.98 ng/dL 0.76-1.46 [facility] Urea nitrogen/Creatinine [Mass ratio] 22.8 mg/mg 10-20 [facility] No Panel InformationOrdered By: Dr. Durand on 05-16-2022 Estimated GFR (MDRD) Amer 26 mL/min >60 [facility] Comment on above: GFR Calc Estimated GFR (MDRD) Non-Af Amer 21 mL/min >60 [facility] Comment on above: Non- GFR Calc Free Triiodothyronine (T3) pg/dL 1.5 pg/mL 2.18-3.98 [facility] Prostate Specific Antigen Screen 0.33 ng/mL 0.00-4.00 [facility] Comment on above: This test was perfor med using the TPSA assay method for [employer] chemistry system. Values obtained with differentassay methods cannot be used interchangably.When changing PSA assays in the course of monitoring apatient, additional sequential testing should be carriedout to confirm baseline values. Thyroid Stimulating Hormone (TSH) 1.79 uIU/mL 0.358-3.74 [facility] Urine Microalbumin/Creatinine Ratio 16.7 mg/g CRE <30 [facility] Serum or plasma calcium geena urement (mass/volume)Ordered By: Dr. Durand on 05-16-2022 Calcium [Mass/Vol] 9.0 mg/dL 8.5-10.1 [facility] Serum or plasma cholesterol in HDL measurement (mass/volume)Ordered By: Dr. Durand on 05-16-2022 Cholesterol in HDL [Mass/Vol] 33 mg/dL >40 [facility] Comment on above: The drugs N-Acetylcy steine and Metamizole may falsely depress this assay. Reference Range HDL <40 mg/dL Low HDL Cholesterol HDL >or= 60 mg/dL High HDL Cholesterol Serum or plasma cholesterol in VLDL measurement (mass/volume)Ordered By: Dr. Durand on 05-16-2022 Cholesterol in VLDL [Mass/Vol] 54 mg/dL 5-40 [facility] Serum or plasma creatinine m easurement (mass/volume)Ordered By: Dr. Durand on 05-16-2022 Creatinine [Mass/Vol] 3.03 mg/dL 0.70-1.30 [facility] Comment on above: The validity of the calculated GFR & GFRAA in patients over 70 years has not been determined. Clinical correlation is essential. Serum or plasma low density lipoprotein (LDL) cholesterol measurement (mass/volume)Ordered By: Dr. Durand on 05-16-2022 Cholesterol in LDL [Mass/Vol] 62 mg/dL 0-130 [facility] Serum or plasma urea nitroge n measurement (mass/volume)Ordered By: Dr. Durand on 05-16-2022 Urea nitrogen [Mass/Vol] 69 mg/dL 7-18 [facility] Thin prep Papanicolaou smear with manual screeningOrdered By: Dr. Durand on 05-16-2022 Thin prep Papanicolaou smear with manual screening 10 5-15 [facility] Thin prep Papanicolaou smear with manual screening 11.0 mg/L NO RANGE EST. [facility] Urine creatinine measurement (mass/volume)Ordered By: Dr. Durand on 05-16-2022 Creatinine (U) [Mass/Vol] 65.70 mg/dL NO RANGE EST. [facility] Echo 2D Doppler Coloron 08-3 TRANSTHORACIC ECHOCARDIOGRAM PATIENT: Megan Nascimento STUDY DATE: 03/20/2022 : 1940 AGE: 81 HT/WT: 170.2 cm (67 77.1 kg in) (169.6 lb) GENDER: M BP: 116 / 64 LOCATION: [facility] STATUS: *ORDERING PHYSICIAN: * Ruddy Gates *READING PHYSICIAN: * Cassia, FarhadGAS STATION CASHIER: * Tena Russo [facility] INDICATIONS: CHF. CONCLUSIONS SUMMARY: 1. Left [...] 5.4 cm 4.2 (more content not included)... [facility] Karan Antony MD - 03/20/2022 TRANSTHORACIC ECHOCARDIOGRAM PATIENT: Megan Nascimento STUDY DATE: 03/20/2022 : 1940 AGE: 81 HT/WT: 170.2 cm (67 77.1 kg in) (169.6 lb) GENDER: M BP: 116 / 64 LOCATION: [facility] STATUS: *ORDERING PHYSICIAN: * Ruddy Gates *READING PHYSICIAN: * Cassia, *GAS STATION CASHIER: * Tena Russo [facility] INDICATIONS: CHF. CONCLUSIONS SUMMARY: 1. Left [...] LV end-diastolic volu (more content not included)... [employer] Work Phone: Echo 2D Doppler ColorOrdered By: Karan Antony on 03-20-2022 [employer] Work Phone: Echo Complete w/wo Contrasto n 03-20-2022 Echo Complete w/wo Contrast Patient Name: MEGAN NASCIMENTO Ultrasound ACCESSION EXAM DATE/TIME PROCEDURE ORDERING PROVIDER [id number] 03/20/2022 11:41 EDT Echo Complete w/wo MD ANNA, RUDDY Gonzalez Contrast Reason For Exam (Echo Complete w/wo Contrast) chf Report TRANSTHORACIC ECHOCARDIOGRAM PATIENT: Megan Nascimento STUDY DATE: 03/20/2022 : 1940 AGE: 81 HT/WT: 170.2 cm (67 77.1 kg in) (169.6 lb) GENDER: M BP: 116 / 64 LOCATION: [facility] PATIENT Outpatient [facility] STATUS: *ORDERING PHYSICIAN: * Ruddy Gates *READING PHYSICIAN: * Cassia, *GAS STATION CASHIER: * Tena MAYORGA INDICATIONS: CHF. CONCLUSIONS SUMMARY: [...] PW th (more content not included)... Normal [facility] Basophil percentageon 2021 Bilirubin [Mass/Vol] 0.40 mg/dL 0.20-1.00 [facility] Work Phone: Comment on above: For patients on eltr ombopag therapy, use of Dimension [place] TBIL is not recommended. Chloride [Moles/Vol] 97 mmol/L 98-107 [facility] Work Phone: Cholesterol [Mass/Vol] 219 mg/dL <200 [facility] Work Phone: Comment on above: <200 mg/dL Desirable 200-240 mg/dL Borderline >240 mg/dL High Risk Glucose [Mass/Vol] 140 mg/dL 74-106 [facility] Work Phone: Comment on above: Fasting Glucose resu lt greater than or equal to 126 mg/dL suggests DIABETES MELLITUS per A.D.A. criteria. Potassium [Moles/Vol] 3.8 mmol/L 3.5-5.1 [facility] Work Phone: Protein [Mass/Vol] 7.6 g/dL 6.4-8.2 [facility] Work Phone: Sodium [Moles/Vol] 137 mmol/L 136-145 [facility] Work Phone: Triglyceride [Mass/Vol] 190 mg/dL <199 [facility] Work Phone: Comment on above: The drugs N-Acetylcy steine and Metamizole may falsely depress this assay.Serum Triglycerides Reference Interval Normal <150 mg/dL Borderline high 150 - 199 mg/dL High 200 - 499 mg/dL Very High > or = 500 mg/dL Laboratory - Chemistry and C hemistry - challengeon 10-25-2021 ALP [Catalytic activity/Vol] 108 U/L 45-117 [facility] Work Phone: ALT [Catalytic activity/Vol] 25 U/L 16-61 [facility] Work Phone: [phone] CO2 [Moles/Vol] 34.0 mmol/L 21.0-32.0 [facility] Work Phone: [phone] Free T4 [Mass/Vol] 0.88 ng/dL 0.76-1.46 [facility] Work Phone: [phone] Globulin (S) [Mass/Vol] 4.0 g/dL 2.2-4.2 [facility] Work Phone: [phone] Urea nitrogen/Creatinine [Mass ratio] 21.8 mg/mg 10-20 [facility] Work Phone: No Panel Informationon 10-25 Estimated GFR (MDRD) Amer 28 mL/min >60 [facility] Work Phone: [phone] Comment on above: GFR Calc Estimated GFR (MDRD) Non-Af Amer 23 mL/min >60 [facility] Work Phone: Comment on above: Non- GFR Calc Free Triiodothyronine (T3) pg/dL 1.6 pg/mL 2.18-3.98 [facility] Work Phone: Thyroid Stimulating Hormone (TSH) 2.36 uIU/mL 0.358-3.74 [facility] Work Phone: [phone] Serum or plasma albumin geena urement (mass/volume)on 10-25-2021 Albumin [Mass/Vol] 3.6 g/dL 3.2-5.0 [facility] Work Phone: [phone] Serum or plasma albumin/glob ulin mass ratioon 10-25-2021 Albumin/Globulin [Mass ratio] 0.9 {ratio} 0.9-2.4 [facility] Work Phone: [phone] Serum or plasma calcium geena urement (mass/volume)on 10-25-2021 Calcium [Mass/Vol] 8.7 mg/dL 8.5-10.1 [facility] Work Phone: Serum or plasma cholesterol in HDL measurement (mass/volume)on 10-25-2021 Cholesterol in HDL [Mass/Vol] 44 mg/dL >40 [facility] Work Phone: Comment on above: The drugs N-Acetylcy steine and Metamizole may falsely depress this assay. Reference Range HDL <40 mg/dL Low HDL Cholesterol HDL >or= 60 mg/dL High HDL Cholesterol Serum or plasma cholesterol in VLDL measurement (mass/volume)on 10-25-2021 Cholesterol in VLDL [Mass/Vol] 38 mg/dL 5-40 [facility] Work Phone: Serum or plasma creatinine m easurement (mass/volume)on 10-25-2021 Creatinine [Mass/Vol] 2.84 mg/dL 0.70-1.30 [facility] Work Phone: Comment on above: The validity of the calculated GFR & GFRAA in patients over 70 years has not been determined. Clinical correlation is essential. Serum or plasma low density lipoprotein (LDL) cholesterol measurement (mass/volume)on 10-25-2021 Cholesterol in LDL [Mass/Vol] 137 mg/dL 0-130 [facility] Work Phone: Serum or plasma urea nitroge n measurement (mass/volume)on 10-25-2021 Urea nitrogen [Mass/Vol] 62 mg/dL 7-18 [facility] Work Phone: [phone] Thin prep Papanicolaou smear with manual screeningon 10-25-2021 Thin prep Papanicolaou smear with manual screening 25 U/L 15-37 [facility] Work Phone: [phone] Thin prep Papanicolaou smear with manual screening 6 5-15 [facility] Work Phone: [phone] Absolute lymphocyte counton 08-31-2021 Lymphocytes Auto (Unsp spec) [#/Vol] 1.08 10*3/uL 0.83-4.51 [facility] Work Phone: [phone] Basophil percentageon 2021 Basophils/100 WBC (Bld) 1.4 % 0-1 [facility] Work Phone: Eosinophils/100 WBC (Bld) 8.4 % 0-5 [facility] Work Phone: Neutrophils (Bld) [#/Vol] 3.8 10*3/uL 2.0-7.7 [facility] Work Phone: Neutrophils/100 WBC (Bld) 60.7 % 47-70 [facility] Work Phone: WBC (Bld) [#/Vol] 6.3 10*3/uL 4.4-11.0 [facility] Work Phone: Blood erythrocytes count (nu mber/volume)on 08-31-2021 RBC (Bld) [#/Vol] 3.44 10*6/uL 4.6-6.2 [facility] Work [facility]: Blood hemoglobin measurement (mass/volume)on 08-31-2021 Hemoglobin (Bld) [Mass/Vol] 10.1 g/dL 13.0-16.5 [facility] Work Phone: Blood lymphocytes/100 leukoc yteson 08-31-2021 Lymphocytes/100 WBC (Bld) 17.2 % 19-41 [facility] Work Phone: Blood monocytes/100 leukocyt eson 08-31-2021 Monocytes/100 WBC (Bld) 11.8 % 0-10 [facility] Work Phone: Blood platelet mean volumeon 08-31-2021 Platelet mean volume (Bld) [Entitic vol] 9.8 fL 6.2-12.0 [facility] Work Phone: Determination of erythrocyte mean corpuscular volume (MCV)on 08-31-2021 MCV (RBC) [Entitic vol] 92.4 fL 80-94 [facility] Work Phone: Hematocrit Auto (Bld) [Volum e fraction]on 08-31-2021 Hematocrit (Bld) [Volume fraction] 31.8 % 40-54 [facility] Work Phone: Laboratory - Hematology and Cell countson 08-31-2021 Erythrocyte distribution width (RBC) [Entitic vol] 49.4 fL 35.1-43.9 [facility] Work Phone: Erythrocyte distribution width (RBC) [Ratio] 14.6 % 11.6-14.6 [facility] Work Phone: Immature granulocytes/100 WBC (Bld) 0.500 % 0.0-0.9 [facility] Work Phone: Comment on above: IG% - Immature Granu locytes (promyelocytes, myelocytes and metamyelocytes) > 1% indicates that a LEFT SHIFT is Present. MCH (RBC) [Entitic mass] 29.4 pg 27.0-32.0 [facility] Work Phone: Nucleated RBC/100 WBC (Bld) [Ratio] 0 % 0-5 [facility] Work Phone: MCHC Auto (RBC) [Mass/Vol]on 08-31-2021 MCHC (RBC) [Mass/Vol] 31.8 g/dL 32-36 [facility] Work Phone: Platelets bldon 08-31-2021 Platelets (Bld) [#/Vol] 320 10*3/uL 150-450 [facility] Work Phone: Absolute lymphocyte counton 08-22-2021 Lymphocytes Auto (Unsp spec) [#/Vol] 1.00 10*3/uL 0.83-4.51 [facility] Work Phone: Basophil percentageon 2021 Basophils/100 WBC (Bld) 0.6 % 0-1 [facility] Work Phone: Chloride [Moles/Vol] 96 mmol/L 98-107 [facility] Work Phone: Eosinophils/100 WBC (Bld) 2.1 % 0-5 [facility] Work Phone: Glucose [Mass/Vol] 106 mg/dL 74-106 [facility] Work Phone: Comment on above: Fasting Glucose resu lt from 100 to 125 mg/dL suggests IMPAIRED HOMEOSTASIS per A.D.A. criteria. Neutrophils (Bld) [#/Vol] 6.2 10*3/uL 2.0-7.7 [facility] Work Phone: Neutrophils/100 WBC (Bld) 77.2 % 47-70 [facility] Work Phone: Potassium [Moles/Vol] 3.3 mmol/L 3.5-5.1 [facility] Work Phone: Sodium [Moles/Vol] 136 mmol/L 136-145 [facility] Work Phone: WBC (Bld) [#/Vol] 8.0 10*3/uL 4.4-11.0 [facility] Work Phone: Blood erythrocytes count (nu mber/volume)on 08-22-2021 RBC (Bld) [#/Vol] 3.10 10*6/uL 4.6-6.[address] [facility] Work Phone: Blood hemoglobin measurement (mass/volume)on 08-22-2021 Hemoglobin (Bld) [Mass/Vol] 9.1 g/dL 13.0-16.5 [facility] Work Phone: Blood lymphocytes/100 leukoc yteson 08-22-2021 Lymphocytes/100 WBC (Bld) 12.5 % 19-41 [facility] Work Phone: Blood monocytes/100 leukocyt eson 08-22-2021 Monocytes/100 WBC (Bld) 7.0 % 0-10 [facility] Work Phone: Blood platelet mean volumeon 08-22-2021 Platelet mean volume (Bld) [Entitic vol] 8.8 fL 6.2-12.0 [facility] Work Phone: Determination of erythrocyte mean corpuscular volume (MCV)on 08-22-2021 MCV (RBC) [Entitic vol] 88.4 fL 80-94 [facility] Work Phone: Glucose Glucometer (BldC) [M ass/Vol]on 08-22-2021 Glucose [Mass/Vol] 119 mg/dL 70-110 [facility] Work Phone: Comment on above: MANAGEMENT OF PATIEN T CARE PER NURSING PROTOCOL Hematocrit Auto (Bld) [Volum e fraction]on 08-22-2021 Hematocrit (Bld) [Volume fraction] 27.4 % 40-54 [facility] Work Phone: Laboratory - Chemistry and C hemistry - challengeon 08-22-2021 CO2 [Moles/Vol] 29.0 mmol/L 21.0-32.0 [facility] Work Phone: [phone] Urea nitrogen/Creatinine [Mass ratio] 40.1 mg/mg 10-20 [facility] Work Phone: [phone] Laboratory - Hematology and Cell countson 08-22-2021 Erythrocyte distribution width (RBC) [Entitic vol] 52.3 fL 35.1-43.9 [facility] Work Phone: [phone] Erythrocyte distribution width (RBC) [Ratio] 16.7 % 11.6-14.6 [facility] Work Phone: [phone] Immature granulocytes/100 WBC (Bld) 0.600 % 0.0-0.9 [facility] Work Phone: Comment on above: IG% - Immature Granu locytes (promyelocytes, myelocytes and metamyelocytes) > 1% indicates that a LEFT SHIFT is Present. MCH (RBC) [Entitic mass] 29.4 pg 27.0-32.0 [facility] Work Phone: [phone] Nucleated RBC/100 WBC (Bld) [Ratio] 0 % 0-5 [facility] Work Phone: [phone] MCHC Auto (RBC) [Mass/Vol]on 08-22-2021 MCHC (RBC) [Mass/Vol] 33.2 g/dL 32-[address] [facility] Work Phone: [phone] No Panel Informationon 08-22 Estimated Creatinine Clearance Calc 17.52 ml/min [facility] Work Phone: Estimated GFR (MDRD) Amer 26 mL/min >60 [facility] Work Phone: Comment on above: GFR Calc Estimated GFR (MDRD) Non-Af Amer 21 mL/min >60 [facility] Work Phone: Comment on above: Non- GFR Calc Platelets bldon 08-22-2021 Platelets (Bld) [#/Vol] 301 10*3/uL 150-450 [facility] Work Phone: Serum or plasma calcium geena urement (mass/volume)on 08-22-2021 Calcium [Mass/Vol] 8.8 mg/dL 8.5-10.1 [facility] Work Phone: Serum or plasma creatinine m easurement (mass/volume)on 08-22-2021 Creatinine [Mass/Vol] 3.04 mg/dL 0.70-1.30 [facility] Work Phone: Comment on above: The validity of the calculated GFR & GFRAA in patients over 70 years has not been determined. Clinical correlation is essential. Serum or plasma urea nitroge n measurement (mass/volume)on 08-22-2021 Urea nitrogen [Mass/Vol] 122 mg/dL 7-18 [facility] Work Phone: Comment on above: Critical Result(s) C alled at: 04:54:27 08/22/2021 by: Prem ISLAS RN (ICU) Results read back by same. Thin prep Papanicolaou smear with manual screeningon 08-22-2021 Thin prep Papanicolaou smear with manual screening 11 5-15 [facility] Work Phone: Blood manual differential co mment interpretation (narrative result)on 08-21-2021 Manual differential comment Raymond (Bld) [Interp] SCANNED [facility] Work Phone: Hypochromatic red blood cell detectionon 08-21-2021 Hypochromia Ql (Bld) 2+ [facility] Work Phone: No Panel Informationon 08-21 SARS-CoV-2 Antigen (Rapid) [facility] Work Phone: Review by pathologiston Pathologist review Raymond (Unsp spec) [Interp] Reviewed [facility] Work Phone: Comment on above: Previous reported re sult: Jossy floyd Edited by: RGOOD on 08/22/21:0934Macrocytic anemia.Lymphopenia, relativeClinical correlation suggested.Art Bal D.O. 08/22/21 AMENDED REPORT 08/22/21 0934 PATH REV previously reported as: Jossy floyd Basophil percentageon 2021 Basophil percentage 0-5 SEEN /hpf [facility] Work Phone: Bilirubin [Mass/Vol] 0.40 mg/dL 0.20-1.00 [facility] Work Phone: Comment on above: For patients on eltr ombopag therapy, use of Dimension [place] TBIL is not recommended. Protein [Mass/Vol] 7.0 g/dL 6.4-8.2 [facility] Work Phone: Bilirubin Test strip Ql (U)o n 08-20-2021 Bilirubin Ql (U) Negative Negative [facility] Work Phone: Blood naomi cells detection b y light microscopyon 08-20-2021 [place] cells LM Ql (Bld) 1+ [facility] Work Phone: Blood platelet adequacy dete ction by light microscopyon 08-20-2021 Platelets LM Ql (Bld) SLT INC ADEQ [facility] Work Phone: Blood polychromasia detectio n by light microscopyon 08-20-2021 Polychromasia LM Ql (Bld) RARE [facility] Work Phone: INR in Blood by Coagulation assayon 08-20-2021 INR Coag (Bld) [Relative time] 1.5 {INR} [facility] Work Phone: Ketones Test strip Ql (U)on 08-20-2021 Ketones Ql (U) Negative Negative [facility] Work Phone: Laboratory - Chemistry and C hemistry - challengeon 08-20-2021 ALP [Catalytic activity/Vol] 118 U/L 45-117 [facility] Work Phone: ALT [Catalytic activity/Vol] 20 U/L 16-61 [facility] Work Phone: Globulin (S) [Mass/Vol] 4.2 g/dL 2.2-4.2 [facility] Work Phone: Laboratory - Coagulationon 0 08-20-2021 PT Coag (PPP) [Time] 17.6 s 11.7-14.9 [facility] Work Phone: Laboratory - Hematology and Cell countson 08-20-2021 Anisocytosis Ql (Bld) 1+ [facility] Work Phone: Lower GI hemoglobin IA Ql (S tl)on 08-20-2021 Stool Occult Blood (BRAD) Positive [facility] Work Phone: Macrocytes detectionon 08-20 Macrocytes Ql (Bld) 1+ [facility] Work Phone: Mucus LM Ql (Urine sed)on Mucus Ql (Urine sed) 0 SEEN /hpf [facility] Work Phone: Nitrite Test strip Ql (U)on 08-20-2021 Nitrite Ql (U) Negative Negative [facility] Work Phone: No Panel Informationon 08-20 Troponin I High Sensitivity 31 pg/mL 3.0-78.0 [facility] Work Phone: Comment on above: Please Note: [place] t Units and Gender Specific Reference Ranges. For more information see Policy Stat Procedure [place] High Sensitivity Troponin (TNIH) and attachments. Ovalocyte detectionon 2021 Ovalocytes LM Ql (Bld) RARE [facility] Work Phone: Protein Test strip Ql (U)on 08-20-2021 Protein Ql (U) Negative Negative [facility] Work Phone: RBC morphologyon 08-20-2021 RBC morphology finding Nom (Bld) N CHROM NORMAL NORM C&C [facility] Work Phone: Serum or plasma albumin geena urement (mass/volume)on 08-20-2021 Albumin [Mass/Vol] 2.8 g/dL 3.2-5.0 [facility] Work Phone: [phone] Serum or plasma albumin/glob ulin mass ratioon 08-20-2021 Albumin/Globulin [Mass ratio] 0.7 {ratio} 0.9-2.4 [facility] Work Phone: [phone] Squamous epithelial cells de tection in urine sediment by light microscopyon 08-20-2021 Epithelial cells.squamous LM Ql (Urine sed) 0 SEEN /hpf [facility] Work Phone: Target cell detectionon 07-23 Target cells LM Ql (Bld) RARE [facility] Work Phone: Thin prep Papanicolaou smear with manual screeningon 08-20-2021 Thin prep Papanicolaou smear with manual screening 43 U/L 15-37 [facility] Work Phone: Comment on above: Moderate Hemolysis, Result may be falsely increased. Urine blood detectionon 07-23 RBC Ql (U) Negative Negative [facility] Work Phone: RBC Ql (U) 0 SEEN /hpf [facility] Work Phone: Urine clarityon 08-20-2021 Clarity (U) Sl. Cloudy Clear [facility] Work Phone: Urine color determinationon 08-20-2021 Color (U) Yellow Yellow [facility] Work Phone: Urine glucose detectionon Glucose Ql (U) Normal mg/dl Normal [facility] Work Phone: [phone] Urine leukocyte esterase det ection by dipstickon 08-20-2021 Leukocyte esterase Test strip Ql (U) 25 /ul Negative [facility] Work Phone: Urine pHon 08-20-2021 pH (U) 5.0 [pH] [facility] Work Phone: Urine sediment bacteria coun t by microscopy (number/high power field)on 08-20-2021 Bacteria LM.HPF (Urine sed) [#/Area] 0 /[HPF] None Seen [facility] Work Phone: Urine specific gravity measu rementon 08-20-2021 Specific gravity (U) [Rel density] 1.010 [facility] Work Phone: Urobilinogen Auto test strip Ql (U)on 08-20-2021 Urobilinogen Ql (U) Normal mg/dl Normal [facility] Work Phone: Basophil percentageon 2021 Chloride [Moles/Vol] 90 mmol/L 98-107 [facility] Work Phone: Glucose [Mass/Vol] 120 mg/dL 74-106 [facility] Work Phone: Comment on above: Fasting Glucose resu lt from 100 to 125 mg/dL suggests IMPAIRED HOMEOSTASIS per A.D.A. criteria. Potassium [Moles/Vol] 4.1 mmol/L 3.5-5.1 [facility] Work Phone: Sodium [Moles/Vol] 131 mmol/L 136-145 [facility] Work Phone: Laboratory - Chemistry and C hemistry - challengeon 08-09-2021 CO2 [Moles/Vol] 31.0 mmol/L 21.0-32.0 [facility] Work Phone: Urea nitrogen/Creatinine [Mass ratio] 36.8 mg/mg 10- [facility] Work Phone: No Panel Informationon 08-09 Estimated GFR (MDRD) Amer 25 mL/min >60 [facility] Work Phone: Comment on above: GFR Calc Estimated GFR (MDRD) Non-Af Amer 20 mL/min >60 [facility] Work Phone: Comment on above: Non- GFR Calc Serum or plasma calcium geena urement (mass/volume)on 08-09-2021 Calcium [Mass/Vol] 9.6 mg/dL 8.5-10.1 [facility] Work Phone: Serum or plasma creatinine m easurement (mass/volume)on 08-09-2021 Creatinine [Mass/Vol] 3.15 mg/dL 0.70-1.30 [facility] Work Phone: Comment on above: The validity of the calculated GFR & GFRAA in patients over 70 years has not been determined. Clinical correlation is essential. Serum or plasma urea nitroge n measurement (mass/volume)on 08-09-2021 Urea nitrogen [Mass/Vol] 116 mg/dL 7-18 [facility] Work Phone: Comment on above: Critical Result(s) C alled at: 10:47:15 08/09/2021 by: Clauidne King. Results read back by same. Thin prep Papanicolaou smear with manual screeningon 08-09-2021 Thin prep Papanicolaou smear with manual screening 10 5-15 [facility] Work Phone: Absolute lymphocyte counton 07-09-2021 Lymphocytes Auto (Unsp spec) [#/Vol] 1.02 10*3/uL 0.83-4.51 [facility] Work Phone: [phone] Basophil percentageon 2020 Eosinophils/100 WBC (Bld) 10.9 % 0-5 [facility] Work Phone: Neutrophils (Bld) [#/Vol] 3.1 10*3/uL 2.0-7.7 [facility] Work Phone: [phone] WBC (Bld) [#/Vol] 5.2 10*3/uL 4.4-11.0 [facility] Work Phone: [phone] Blood erythrocytes count (nu mber/volume)on 07-09-2021 RBC (Bld) [#/Vol] 2.75 10*6/uL 4.6-6.2 [facility] Work [facility]: [phone] Blood hemoglobin measurement (mass/volume)on 07-09-2021 Hemoglobin (Bld) [Mass/Vol] 8.0 g/dL 13.0-16.5 [facility] Work Phone: Blood lymphocytes/100 leukoc yteson 07-09-2021 Lymphocytes/100 WBC (Bld) 19.8 % 19-41 [facility] Work Phone: [phone] Blood monocytes/100 leukocyt eson 07-09-2021 Monocytes/100 WBC (Bld) 8.2 % 0-10 [facility] Work Phone: Blood platelet mean volumeon 07-09-2021 Platelet mean volume (Bld) [Entitic vol] 10.3 fL 6.2-12.0 [facility] Work Phone: Determination of erythrocyte mean corpuscular volume (MCV)on 07-09-2021 MCV (RBC) [Entitic vol] 92.7 fL 80-94 [facility] Work Phone: Hematocrit Auto (Bld) [Volum e fraction]on 07-09-2021 Hematocrit (Bld) [Volume fraction] 25.5 % 40-54 [facility] Work Phone: [phone] Laboratory - Hematology and Cell countson 07-09-2021 Basophils/100 WBC (Unsp spec) 1.0 % 0-1 [facility] Work Phone: Erythrocyte distribution width (RBC) [Entitic vol] 53.7 fL 35.1-43.9 [facility] Work Phone: Erythrocyte distribution width (RBC) [Ratio] 15.8 % 11.6-14.6 [facility] Work Phone: Immature granulocytes/100 WBC (Bld) 0.400 % 0.0-0.9 [facility] Work Phone: Comment on above: IG% - Immature Granu locytes (promyelocytes, myelocytes and metamyelocytes) > 1% indicates that a LEFT SHIFT is Present. MCH (RBC) [Entitic mass] 29.1 pg 27.0-32.0 [facility] Work Phone: Neutrophils/100 WBC (Bld) 59.7 % 47-70 [facility] Work Phone: Nucleated RBC/100 WBC (Bld) [Ratio] 0 % 0-5 [facility] Work Phone: MCHC Auto (RBC) [Mass/Vol]on 07-09-2021 MCHC (RBC) [Mass/Vol] 31.4 g/dL 32-36 [facility] Work Phone: Platelets bldon 07-09-2021 Platelets (Bld) [#/Vol] 276 10*3/uL 150-450 [facility] Work Phone: Basic Metabolic Panelon 11-0 Anion gap [Moles/Vol] 5 mmol/L Normal 3-13 [facility] Comment on above: Order Comment: SLIGH T HEMOLYSIS Performed By: #### L IPD2, BMP3, MG3 #### [facility] [address] [place] [address] Calcium [Mass/Vol] 9.4 mg/dL Normal 8.4-10.4 [facility] Comment on above: Order Comment: SLIGH T HEMOLYSIS Performed By: #### L IPD2, BMP3, MG3 #### [facility] [address] [place] [address] CO2 [Moles/Vol] 36 mmol/L High 22-30 [facility] Comment on above: Order Comment: SLIGH T HEMOLYSIS Performed By: #### L IPD2, BMP3, MG3 #### [facility] [address] [place] [address] Creatinine [Mass/Vol] 2.03 mg/dL High 0.52-1.25 [facility] Comment on above: Order Comment: SLIGH T HEMOLYSIS Performed By: #### L IPD2, BMP3, MG3 #### [facility] [address] [place] [address] GFR/1.73 sq M.predicted among blacks MDRD (S/P/Bld) [Vol rate/Area] 34.4 mL/min/{1.73_m2} Abnormal >60 [facility] Comment on above: Order Comment: SLIGH T HEMOLYSIS Performed By: #### L IPD2, BMP3, MG3 #### [employer] [address] [place] [address] GFR/1.73 sq M.predicted among non-blacks MDRD (S/P/Bld) [Vol rate/Area] 29.7 mL/min/{1.73_m2} Abnormal >60 [facility] Comment on above: Order Comment: SLIGH [...] By: #### L IPD2, BMP3, MG3 #### [employer] [address] [place] [address] Glucose [Mass/Vol] 97 mg/dL Normal 70-100 [facility] Comment on above: Order Comment: SLIGH T HEMOLYSIS Performed By: #### L IPD2, BMP3, MG3 #### [employer] [address] [place] [address] Urea nitrogen [Mass/Vol] 80 mg/dL High 7-17 [facility] Comment on above: Order Comment: SLIGH T HEMOLYSIS Performed By: #### L IPD2, BMP3, MG3 #### [email or web address] [facility] [address] [place] [address] Chloride [Moles/Vol] 98 mmol/L Normal 98-107 [facility] Comment on above: Order Comment: SLIGH T HEMOLYSIS Performed By: #### L IPD2, BMP3, MG3 #### [facility] [address] [place] [address] Potassium [Moles/Vol] 4.0 mmol/L Normal 3.5-5.1 [facility] Comment on above: Order Comment: SLIGH T HEMOLYSIS Performed By: #### L IPD2, BMP3, MG3 #### [facility] [address] [place] [address] Sodium [Moles/Vol] 139 mmol/L Normal 135-145 [facility] Comment on above: Order Comment: SLIGH T HEMOLYSIS Performed By: #### L IPD2, BMP3, MG3 #### [facility] [address] [place] [address] Glucose,Bedsideon 05-21-2021 Glucose [Mass/Vol] 154 mg/dL High 70-100 [facility] Comment on above: Result Comment: Test performed by glucose meter. Results may be 10%-15% lower than serum/plasma values. (CLIA ID [id number]) Performed By: #### L IPD2, BMP3, MG3 #### [facility] [address] [place] [address] Glucose [Mass/Vol] 96 mg/dL Normal 70-100 [facility] Comment on above: Result Comment: Test performed by glucose meter. Results may be 10%-15% lower than serum/plasma values. (CLIA ID [id number]) Performed By: #### B GLU #### [facility] [address] [place] [address] Hemogram w/ Autodiffon 05-21 Abs Baso Cnt 0.0 10*3/uL Normal 0.0-0.2 [facility] Comment on above: Performed By: #### B NP3, TROPN, BMP3, HEMDF #### [facility] [address] [place] [address] Abs Neutrophile Cnt 2.1 10*3/uL Normal 1.8-7.0 [facility] Comment on above: Performed By: #### B NP3, TROPN, BMP3, HEMDF #### [facility] [address] [place] [address] Basophils/100 WBC (Bld) 0.5 % Normal 0.0-2.0 [facility] Comment on above: Performed By: #### B NP3, TROPN, BMP3, HEMDF #### [facility] [address] [place] [address] Eosinophils (Bld) [#/Vol] 0.4 10*3/uL Normal 0.0-0.5 [facility] Comment on above: Performed By: #### B NP3, TROPN, BMP3, HEMDF #### [facility] [address] [place] [address] Eosinophils/100 WBC (Bld) 11.8 % High 1.0-6.0 [facility] Comment on above: Performed By: #### B NP3, TROPN, BMP3, HEMDF #### [facility] [address] [place] [address] Erythrocyte distribution width (RBC) [Ratio] 18.6 % High 11.5-14.5 [facility] Comment on above: Performed By: #### B NP3, TROPN, BMP3, HEMDF #### [facility] [address] [place] [address] Granulocytes/100 WBC (Bld) 57.5 % Normal 40.0-80.0 [facility] Comment on above: Performed By: #### B NP3, TROPN, BMP3, HEMDF #### [facility] [address] [place] [address] Hematocrit (Bld) [Volume fraction] 32.7 % Low 40.0-52.0 [facility] Comment on above: Performed By: #### B NP3, TROPN, BMP3, HEMDF #### [facility] [address] [place] [address] Hemoglobin (Bld) [Mass/Vol] 10.9 g/dL Low 13.0-18.0 [facility] Comment on above: Performed By: #### B NP3, TROPN, BMP3, HEMDF #### [facility] [address] [place] [address] Lymphocytes (Bld) [#/Vol] 0.7 10*3/uL Low 1.0-4.3 [facility] Comment on above: Performed By: #### B NP3, TROPN, BMP3, HEMDF #### [facility] [address] [place] [address] Lymphocytes/100 WBC (Bld) 19.1 % Low 20.0-40.0 [facility] Comment on above: Performed By: #### B NP3, TROPN, BMP3, HEMDF #### [facility] [address] [place] [address] MCH (RBC) [Entitic mass] 30.0 pg Normal 26.0-34.0 [facility] Comment on above: Performed By: #### B NP3, TROPN, BMP3, HEMDF #### [facility] [address] [place] [address] MCHC 33.2 % Normal 32.0-36.0 [facility] Comment on above: Performed By: #### B NP3, TROPN, BMP3, HEMDF #### [facility] [address] [place] [address] MCV (RBC) [Entitic vol] 90.4 fL Normal 80.0-98.0 [facility] Comment on above: Performed By: #### B NP3, TROPN, BMP3, HEMDF #### [facility] [address] [place] [address] Monocytes (Bld) [#/Vol] 0.4 10*3/uL Normal 0.0-0.8 [facility] Comment on above: Performed By: #### B NP3, TROPN, BMP3, HEMDF #### [facility] [address] [place] [address] Monocytes/100 WBC (Bld) 11.1 % High 2.0-10.0 [facility] Comment on above: Performed By: #### B NP3, TROPN, BMP3, HEMDF #### [facility] [address] [place] [address] Platelet mean volume (Bld) [Entitic vol] 10.0 fL Normal 7.4-10.4 [facility] Comment on above: Performed By: #### B NP3, TROPN, BMP3, HEMDF #### [facility] [address] [place] [address] Platelets (Bld) [#/Vol] 295 10*3/uL Normal 140-440 [facility] Comment on above: Performed By: #### B NP3, TROPN, BMP3, HEMDF #### [facility] [address] [place] [address] RBC (Bld) [#/Vol] 3.62 10*6/uL Low 4.40-5.90 [facility] Comment on above: Performed By: #### B NP3, TROPN, BMP3, HEMDF #### [facility] [address] [place] [address] WBC (Bld) [#/Vol] 3.7 10*3/uL Normal 3.6-10.7 [facility] Comment on above: Performed By: #### B NP3, TROPN, BMP3, HEMDF #### [facility] [address] [place] [address] Basic Metabolic Panelon 10-3 -2020 Anion gap [Moles/Vol] 9 mmol/L Normal 3-13 [facility] Comment on above: Performed By: #### B GLU #### [facility] [address] [place] [address] Calcium [Mass/Vol] 9.4 mg/dL Normal 8.4-10.4 [facility] Comment on above: Performed By: #### B GLU #### [facility] [address] [place] [address] CO2 [Moles/Vol] 33 mmol/L High 22-30 [facility] Comment on above: Performed By: #### B GLU #### [facility] [address] [place] [address] Creatinine [Mass/Vol] 2.21 mg/dL High 0.52-1.25 [facility] Comment on above: Performed By: #### B GLU #### [facility] [address] [place] [address] GFR/1.73 sq M.predicted among blacks MDRD (S/P/Bld) [Vol rate/Area] 31.0 mL/min/{1.73_m2} Abnormal >60 [facility] Comment on above: Performed By: #### B GLU #### [facility] [address] [place] [address] GFR/1.73 sq M.predicted among non-blacks MDRD (S/P/Bld) [Vol rate/Area] 26.8 mL/min/{1.73_m2} Abnormal >60 [facility] Comment on above: Result Comment: KDIG [...] secretion. Performed By: #### B GLU #### [facility] [address] [place] [address] Glucose [Mass/Vol] 101 mg/dL High 70-100 [facility] Comment on above: Performed By: #### B GLU #### [facility] [address] [place] [address] Urea nitrogen [Mass/Vol] 72 mg/dL High 7-17 [facility] Comment on above: Performed By: #### B GLU #### [facility] [address] [place] [address] Chloride [Moles/Vol] 97 mmol/L Low 98-107 [facility] Comment on above: Performed By: #### B GLU #### [facility] [address] [place] [address] Potassium [Moles/Vol] 3.9 mmol/L Normal 3.5-5.1 [facility] Comment on above: Performed By: #### B GLU #### [facility] [address] [place] [address] Sodium [Moles/Vol] 140 mmol/L Normal 135-145 [facility] Comment on above: Performed By: #### B GLU #### [facility] [address] [place] [address] Glucose,Bedsideon 05-20-2021 Glucose [Mass/Vol] 153 mg/dL High 70-100 [facility] Comment on above: Result Comment: Test performed by glucose meter. Results may be 10%-15% lower than serum/plasma values. (CLIA ID [id number]) Performed By: #### L IPD2, BMP3, MG3 #### [facility] [address] [place] [address] Glucose [Mass/Vol] 148 mg/dL High 70-100 [facility] Comment on above: Result Comment: Test performed by glucose meter. Results may be 10%-15% lower than serum/plasma values. (CLIA ID [id number]) Performed By: #### B GLU #### [facility] [address] [place] [address] Glucose [Mass/Vol] 125 mg/dL High 70-100 [facility] Comment on above: Result Comment: Test performed by glucose meter. Results may be 10%-15% lower than serum/plasma values. (CLIA ID [id number]) Performed By: #### B GLU #### [facility] [address] [place] [address] Glucose [Mass/Vol] 99 mg/dL Normal 70-100 [facility] Comment on above: Result Comment: Test performed by glucose meter. Results may be 10%-15% lower than serum/plasma values. (CLIA ID [id number]) Performed By: #### L IPD2, BMP3, MG3 #### [facility] [address] [place] [address] Hemogram w/ Autodiffon 05-20 Abs Baso Cnt 0.1 10*3/uL Normal 0.0-0.[address] [facility] Comment on above: Performed By: #### B GLU #### [facility] [address] [place] [address] Abs Neutrophile Cnt 2.5 10*3/uL Normal 1.8-7.0 [facility] Comment on above: Performed By: #### B GLU #### [facility] [address] [place] [address] Basophils/100 WBC (Bld) 1.7 % Normal 0.0-2.0 [facility] Comment on above: Performed By: #### B GLU #### [facility] [address] [place] [address] Eosinophils (Bld) [#/Vol] 0.5 10*3/uL Normal 0.0-0.5 [facility] Comment on above: Performed By: #### B GLU #### [facility] [address] [place] [address] Eosinophils/100 WBC (Bld) 11.1 % High 1.0-6.0 [facility] Comment on above: Performed By: #### B GLU #### [facility] [address] [place] [address] Erythrocyte distribution width (RBC) [Ratio] 18.1 % High 11.5-14.5 [facility] Comment on above: Performed By: #### B GLU #### [facility] [address] [place] [address] Granulocytes/100 WBC (Bld) 55.7 % Normal 40.0-80.0 [facility] Comment on above: Performed By: #### B GLU #### [facility] [address] [place] [address] Hematocrit (Bld) [Volume fraction] 35.8 % Low 40.0-52.0 [facility] Comment on above: Performed By: #### B GLU #### [facility] [address] [place] [address] Hemoglobin (Bld) [Mass/Vol] 11.5 g/dL Low 13.0-18.0 [facility] Comment on above: Performed By: #### B GLU #### [facility] [address] [place] [address] Lymphocytes (Bld) [#/Vol] 0.9 10*3/uL Low 1.0-4.3 [facility] Comment on above: Performed By: #### B GLU #### [facility] [address] [place] [address] Lymphocytes/100 WBC (Bld) 19.8 % Low 20.0-40.0 [facility] Comment on above: Performed By: #### B GLU #### [facility] [address] [place] [address] MCH (RBC) [Entitic mass] 29.4 pg Normal 26.0-34.0 [facility] Comment on above: Performed By: #### B GLU #### [facility] [address] [place] [address] MCHC 32.1 % Normal 32.0-36.0 [facility] Comment on above: Performed By: #### B GLU #### [facility] [address] [place] [address] MCV (RBC) [Entitic vol] 91.5 fL Normal 80.0-98.0 [facility] Comment on above: Performed By: #### B GLU #### [facility] [address] [place] [address] Monocytes (Bld) [#/Vol] 0.5 10*3/uL Normal 0.0-0.8 [facility] Comment on above: Performed By: #### B GLU #### [facility] [address] [place] [address] Monocytes/100 WBC (Bld) 11.7 % High 2.0-10.0 [facility] Comment on above: Performed By: #### B GLU #### [facility] [address] [place] [address] Platelet mean volume (Bld) [Entitic vol] 8.5 fL Normal 7.4-10.4 [facility] Comment on above: Performed By: #### B GLU #### [facility] [address] [place] [address] Platelets (Bld) [#/Vol] 221 10*3/uL Normal 140-440 [facility] Comment on above: Performed By: #### B GLU #### [facility] [address] [place] [address] RBC (Bld) [#/Vol] 3.91 10*6/uL Low 4.40-5.90 [facility] Comment on above: Performed By: #### B GLU #### [facility] [address] [place] [address] WBC (Bld) [#/Vol] 4.4 10*3/uL Normal 3.6-10.7 [facility] Comment on above: Performed By: #### B GLU #### [facility] [address] [place] [address] Basic Metabolic Panelon 10-3 0-2020 Calcium [Mass/Vol] 9.6 mg/dL Normal 8.4-10.4 [facility] Comment on above: Performed By: #### B NP3, TROPN, BMP3, HEMDF #### [facility] [address] [place] [address] Glucose [Mass/Vol] 99 mg/dL Normal 70-100 [facility] Comment on above: Performed By: #### B NP3, TROPN, BMP3, HEMDF #### [facility] [address] [place] [address] Anion gap [Moles/Vol] 7 mmol/L Normal 3-13 [facility] Comment on above: Performed By: #### B NP3, TROPN, BMP3, HEMDF #### [facility] [address] [place] [address] CO2 [Moles/Vol] 32 mmol/L High 22-30 [facility] Comment on above: Performed By: #### B NP3, TROPN, BMP3, HEMDF #### [facility] [address] [place] [address] Creatinine [Mass/Vol] 2.35 mg/dL High 0.52-1.25 [facility] Comment on above: Performed By: #### B NP3, TROPN, BMP3, HEMDF #### [facility] [address] [place] [address] GFR/1.73 sq M.predicted among blacks MDRD (S/P/Bld) [Vol rate/Area] 28.8 mL/min/{1.73_m2} Abnormal >60 [facility] Comment on above: Performed By: #### B NP3, TROPN, BMP3, HEMDF #### [facility] [address] [place] [address] GFR/1.73 sq M.predicted among non-blacks MDRD (S/P/Bld) [Vol rate/Area] 24.8 mL/min/{1.73_m2} Abnormal >60 [facility] Comment on above: Result Comment: KDIG [...] #### B NP3, TROPN, BMP3, HEMDF #### [facility] [address] [place] [address] Urea nitrogen [Mass/Vol] 69 mg/dL High 7-17 [facility] Comment on above: Performed By: #### B NP3, TROPN, BMP3, HEMDF #### [facility] [address] [place] [address] Chloride [Moles/Vol] 98 mmol/L Normal 98-107 [facility] Comment on above: Performed By: #### B NP3, TROPN, BMP3, HEMDF #### [facility] [address] [place] [address] Potassium [Moles/Vol] 3.8 mmol/L Normal 3.5-5.1 [facility] Comment on above: Performed By: #### B NP3, TROPN, BMP3, HEMDF #### [facility] [address] [place] [address] Sodium [Moles/Vol] 138 mmol/L Normal 135-145 [facility] Comment on above: Performed By: #### B NP3, TROPN, BMP3, HEMDF #### [facility] [address] [place] [address] Glucose,Bedsideon 05-19-2021 Glucose [Mass/Vol] 124 mg/dL High 70-100 [facility] Comment on above: Result Comment: Test performed by glucose meter. Results may be 10%-15% lower than serum/plasma values. (CLIA ID [id number]) Performed By: #### B GLU #### [facility] [address] [place] [address] Glucose [Mass/Vol] 126 mg/dL High 70-100 [facility] Comment on above: Result Comment: Test performed by glucose meter. Results may be 10%-15% lower than serum/plasma values. (CLIA ID [id number]) Performed By: #### B NP3, TROPN, BMP3, HEMDF #### [facility] [address] [place] [address] Glucose [Mass/Vol] 153 mg/dL High 70-100 [facility] Comment on above: Result Comment: Test performed by glucose meter. Results may be 10%-15% lower than serum/plasma values. (CLIA ID [id number]) Performed By: #### L IPD2, BMP3, MG3 #### [facility] [address] [place] [address] Glucose [Mass/Vol] 87 mg/dL Normal 70-100 [facility] Comment on above: Result Comment: Test performed by glucose meter. Results may be 10%-15% lower than serum/plasma values. (CLIA ID [id number]) Performed By: #### B GLU #### [facility] [address] [place] [address] Hemogram w/ Autodiffon 05-19 Abs Baso Cnt 0.1 10*3/uL Normal 0.0-0.2 [facility] Comment on above: Performed By: #### B NP3, TROPN, BMP3, HEMDF #### [facility] [address] [place] [address] Abs Neutrophile Cnt 2.1 10*3/uL Normal 1.8-7.0 [facility] Comment on above: Performed By: #### B NP3, TROPN, BMP3, HEMDF #### [facility] [address] [place] [address] Basophils/100 WBC (Bld) 1.5 % Normal 0.0-2.0 [facility] Comment on above: Performed By: #### B NP3, TROPN, BMP3, HEMDF #### [facility] [address] [place] [address] Eosinophils (Bld) [#/Vol] 0.4 10*3/uL Normal 0.0-0.5 [facility] Comment on above: Performed By: #### B NP3, TROPN, BMP3, HEMDF #### [facility] [address] [place] [address] Eosinophils/100 WBC (Bld) 10.0 % High 1.0-6.0 [facility] Comment on above: Performed By: #### B NP3, TROPN, BMP3, HEMDF #### [facility] [address] [place] [address] Erythrocyte distribution width (RBC) [Ratio] 18.2 % High 11.5-14.5 [facility] Comment on above: Performed By: #### B NP3, TROPN, BMP3, HEMDF #### [facility] [address] [place] [address] Granulocytes/100 WBC (Bld) 54.0 % Normal 40.0-80.0 [facility] Comment on above: Performed By: #### B NP3, TROPN, BMP3, HEMDF #### [facility] [address] [place] [address] Hematocrit (Bld) [Volume fraction] 34.6 % Low 40.0-52.0 [facility] Comment on above: Performed By: #### B NP3, TROPN, BMP3, HEMDF #### [facility] [address] [place] [address] Hemoglobin (Bld) [Mass/Vol] 11.4 g/dL Low 13.0-18.0 [facility] Comment on above: Performed By: #### B NP3, TROPN, BMP3, HEMDF #### [facility] [address] [place] [address] Lymphocytes (Bld) [#/Vol] 0.9 10*3/uL Low 1.0-4.3 [facility] Comment on above: Performed By: #### B NP3, TROPN, BMP3, HEMDF #### [facility] [address] [place] [address] Lymphocytes/100 WBC (Bld) 23.0 % Normal 20.0-40.0 [facility] Comment on above: Performed By: #### B NP3, TROPN, BMP3, HEMDF #### [facility] [address] [place] [address] MCH (RBC) [Entitic mass] 29.5 pg Normal 26.0-34.0 [facility] Comment on above: Performed By: #### B NP3, TROPN, BMP3, HEMDF #### [facility] [address] [place] [address] MCHC 33.0 % Normal 32.0-36.0 [facility] Comment on above: Performed By: #### B NP3, TROPN, BMP3, HEMDF #### [facility] [address] [place] [address] MCV (RBC) [Entitic vol] 89.5 fL Normal 80.0-98.0 [facility] Comment on above: Performed By: #### B NP3, TROPN, BMP3, HEMDF #### [facility] [address] [place] [address] Monocytes (Bld) [#/Vol] 0.4 10*3/uL Normal 0.0-0.8 [facility] Comment on above: Performed By: #### B NP3, TROPN, BMP3, HEMDF #### [facility] [address] [place] [address] Monocytes/100 WBC (Bld) 11.5 % High 2.0-10.0 [facility] Comment on above: Performed By: #### B NP3, TROPN, BMP3, HEMDF #### [facility] [address] [place] [address] Platelet mean volume (Bld) [Entitic vol] 8.3 fL Normal 7.4-10.4 [facility] Comment on above: Performed By: #### B NP3, TROPN, BMP3, HEMDF #### [facility] [address] [place] [address] Platelets (Bld) [#/Vol] 192 10*3/uL Normal 140-440 [facility] Comment on above: Performed By: #### B NP3, TROPN, BMP3, HEMDF #### [facility] [address] [place] [address] RBC (Bld) [#/Vol] 3.87 10*6/uL Low 4.40-5.90 [facility] Comment on above: Performed By: #### B NP3, TROPN, BMP3, HEMDF #### [facility] [address] [place] [address] WBC (Bld) [#/Vol] 3.8 10*3/uL Normal 3.6-10.7 [facility] Comment on above: Performed By: #### B NP3, TROPN, BMP3, HEMDF #### [facility] [address] [place] [address] Magnesiumon 05-19-2021 Magnesium [Mass/Vol] 1.7 mg/dL Normal 1.6-2.3 [facility] Comment on above: Performed By: #### B NP3, TROPN, BMP3, HEMDF #### [facility] [address] [place] [address] NT pro BNPon 05-19-2021 Natriuretic peptide B (Bld) [Mass/Vol] 51712 pg/mL High 0-450 [facility] Comment on above: Performed By: #### B NP3, TROPN, BMP3, HEMDF #### [facility] [address] [place] [address] Comp Metabolic Panelon 05-18 ALP [Catalytic activity/Vol] 111 U/L Normal 38-126 [facility] Comment on above: Performed By: #### L IPD2, BMP3, MG3 #### [facility] [address] [place] [address] ALT [Catalytic activity/Vol] 19 U/L Normal 0-49 [facility] Comment on above: Result Comment: The ALT test is performed by an updated assay method. Please note that the reference intervals have been changed and are now sex specific. Performed By: #### L IPD2, BMP3, MG3 #### [facility] [address] [place] [address] Anion gap [Moles/Vol] 9 mmol/L Normal 3-13 [facility] Comment on above: Performed By: #### L IPD2, BMP3, MG3 #### [facility] [address] [place] [address] AST [Catalytic activity/Vol] 45 U/L Normal 15-46 [facility] Comment on above: Performed By: #### L IPD2, BMP3, MG3 #### [facility] [address] [place] [address] Bilirubin [Mass/Vol] 1.2 mg/dL Normal 0.2-1.3 [facility] Comment on above: Performed By: #### L IPD2, BMP3, MG3 #### [facility] [address] [place] [address] Calcium [Mass/Vol] 8.8 mg/dL Normal 8.4-10.4 [facility] Comment on above: Performed By: #### L IPD2, BMP3, MG3 #### [facility] [address] [place] [address] CO2 [Moles/Vol] 29 mmol/L Normal 22-30 [facility] Comment on above: Performed By: #### L IPD2, BMP3, MG3 #### [facility] [address] [place] [address] Glucose [Mass/Vol] 100 mg/dL Normal 70-100 [facility] Comment on above: Performed By: #### L IPD2, BMP3, MG3 #### [facility] [address] [place] [address] Protein [Mass/Vol] 6.5 g/dL Normal 6.3-8.2 [facility] Comment on above: Performed By: #### L IPD2, BMP3, MG3 #### [facility] [address] [place] [address] Urea nitrogen [Mass/Vol] 65 mg/dL High 7-17 [facility] Comment on above: Performed By: #### L IPD2, BMP3, MG3 #### [facility] [address] [place] [address] Creatinine [Mass/Vol] 2.34 mg/dL High 0.52-1.25 [facility] Comment on above: Performed By: #### L IPD2, BMP3, MG3 #### [facility] [address] [place] [address] GFR/1.73 sq M.predicted among blacks MDRD (S/P/Bld) [Vol rate/Area] 28.9 mL/min/{1.73_m2} Abnormal >60 [facility] Comment on above: Performed By: #### L IPD2, BMP3, MG3 #### [facility] [address] [place] [address] GFR/1.73 sq M.predicted among non-blacks MDRD (S/P/Bld) [Vol rate/Area] 25.0 mL/min/{1.73_m2} Abnormal >60 [facility] Comment on above: Result Comment: KDIG [...] By: #### L IPD2, BMP3, MG3 #### [facility] [address] [place] [address] Albumin [Mass/Vol] 3.6 g/dL Normal 3.5-5.0 [facility] Comment on above: Performed By: #### L IPD2, BMP3, MG3 #### [facility] [address] [place] [address] Chloride [Moles/Vol] 101 mmol/L Normal 98-107 [facility] Comment on above: Performed By: #### L IPD2, BMP3, MG3 #### [facility] [address] [place] [address] Potassium [Moles/Vol] 3.7 mmol/L Normal 3.5-5.1 [facility] Comment on above: Performed By: #### L IPD2, BMP3, MG3 #### [facility] [address] [place] [address] Sodium [Moles/Vol] 140 mmol/L Normal 135-145 [facility] Comment on above: Performed By: #### L IPD2, BMP3, MG3 #### [facility] [address] [place] [address] Glucose,Bedsideon 05-18-2021 Glucose [Mass/Vol] 145 mg/dL High 70-100 [facility] Comment on above: Result Comment: Test performed by glucose meter. Results may be 10%-15% lower than serum/plasma values. (CLIA ID [id number]) Performed By: #### L IPD2, BMP3, MG3 #### [facility] [address] [place] [address] Glucose [Mass/Vol] 116 mg/dL High 70-100 [facility] Comment on above: Result Comment: Test performed by glucose meter. Results may be 10%-15% lower than serum/plasma values. (CLIA ID [id number]) Performed By: #### L IPD2, BMP3, MG3 #### [facility] [address] [place] [address] Glucose [Mass/Vol] 165 mg/dL High 70-100 [facility] Comment on above: Result Comment: Test performed by glucose meter. Results may be 10%-15% lower than serum/plasma values. (CLIA ID [id number]) Performed By: #### B GLU #### [facility] [address] [place] [address] Glucose [Mass/Vol] 155 mg/dL High 70-100 [facility] Comment on above: Result Comment: Test performed by glucose meter. Results may be 10%-15% lower than serum/plasma values. (CLIA ID [id number]) Performed By: #### T ROPN, LACT3 #### [place] [address] [place] [address] Hemogram w/ Autodiffon 05-18 Abs Baso Cnt 0.1 10*3/uL Normal 0.0-0.2 [facility] Comment on above: Performed By: #### L IPD2, BMP3, MG3 #### [facility] [address] [place] [address] Abs Neutrophile Cnt 2.2 10*3/uL Normal 1.8-7.0 [facility] Comment on above: Performed By: #### L IPD2, BMP3, MG3 #### [facility] [address] [place] [address] Basophils/100 WBC (Bld) 1.4 % Normal 0.0-2.0 [facility] Comment on above: Performed By: #### L IPD2, BMP3, MG3 #### [facility] [address] [place] [address] Eosinophils (Bld) [#/Vol] 0.3 10*3/uL Normal 0.0-0.5 [facility] Comment on above: Performed By: #### L IPD2, BMP3, MG3 #### [facility] [address] [place] [address] Eosinophils/100 WBC (Bld) 7.3 % High 1.0-6.0 [facility] Comment on above: Performed By: #### L IPD2, BMP3, MG3 #### [facility] [address] [place] [address] Erythrocyte distribution width (RBC) [Ratio] 18.4 % High 11.5-14.5 [facility] Comment on above: Performed By: #### L IPD2, BMP3, MG3 #### [facility] [address] [place] [address] Granulocytes/100 WBC (Bld) 57.1 % Normal 40.0-80.0 [facility] Comment on above: Performed By: #### L IPD2, BMP3, MG3 #### [facility] [address] [place] [address] Hematocrit (Bld) [Volume fraction] 34.2 % Low 40.0-52.0 [facility] Comment on above: Performed By: #### L IPD2, BMP3, MG3 #### [facility] [address] [place] [address] Hemoglobin (Bld) [Mass/Vol] 10.9 g/dL Low 13.0-18.0 [facility] Comment on above: Performed By: #### L IPD2, BMP3, MG3 #### [facility] [address] [place] [address] Lymphocytes (Bld) [#/Vol] 0.8 10*3/uL Low 1.0-4.3 [facility] Comment on above: Performed By: #### L IPD2, BMP3, MG3 #### [facility] [address] [place] [address] Lymphocytes/100 WBC (Bld) 21.4 % Normal 20.0-40.0 [facility] Comment on above: Performed By: #### L IPD2, BMP3, MG3 #### [facility] [address] [place] [address] MCH (RBC) [Entitic mass] 29.6 pg Normal 26.0-34.0 [facility] Comment on above: Performed By: #### L IPD2, BMP3, MG3 #### [facility] [address] [place] [address] MCHC 31.8 % Low 32.0-36.0 [facility] Comment on above: Performed By: #### L IPD2, BMP3, MG3 #### [facility] [address] [place] [address] MCV (RBC) [Entitic vol] 92.9 fL Normal 80.0-98.0 [facility] Comment on above: Performed By: #### L IPD2, BMP3, MG3 #### [facility] [address] [place] [address] Monocytes (Bld) [#/Vol] 0.5 10*3/uL Normal 0.0-0.8 [facility] Comment on above: Performed By: #### L IPD2, BMP3, MG3 #### [facility] [address] [place] [address] Monocytes/100 WBC (Bld) 12.8 % High 2.0-10.0 [facility] Comment on above: Performed By: #### L IPD2, BMP3, MG3 #### [facility] [address] [place] [address] Platelet mean volume (Bld) [Entitic vol] 8.6 fL Normal 7.4-10.4 [facility] Comment on above: Performed By: #### L IPD2, BMP3, MG3 #### [facility] [address] [place] [address] Platelets (Bld) [#/Vol] 189 10*3/uL Normal 140-440 [facility] Comment on above: Performed By: #### L IPD2, BMP3, MG3 #### [facility] [address] [place] [address] RBC (Bld) [#/Vol] 3.68 10*6/uL Low 4.40-5.90 [facility] Comment on above: Performed By: #### L IPD2, BMP3, MG3 #### [facility] [address] [place] [address] WBC (Bld) [#/Vol] 3.8 10*3/uL Normal 3.6-10.7 [facility] Comment on above: Performed By: #### L IPD2, BMP3, MG3 #### [facility] [address] [place] [address] Magnesiumon 05-18-2021 Magnesium [Mass/Vol] 1.6 mg/dL Normal 1.6-2.3 [facility] Comment on above: Performed By: #### L IPD2, BMP3, MG3 #### [facility] [address] [place] [address] Comp Metabolic Panelon 05-17 ALP [Catalytic activity/Vol] 103 U/L Normal 38-126 [facility] Comment on above: Performed By: #### B NP3, TROPN, BMP3, HEMDF #### [facility] [address] [place] [address] ALT [Catalytic activity/Vol] 18 U/L Normal 0-49 [facility] Comment on above: Result Comment: The ALT test is performed by an updated assay method. Please note that the reference intervals have been changed and are now sex specific. Performed By: #### B NP3, TROPN, BMP3, HEMDF #### [facility] [address] [place] [address] Calcium [Mass/Vol] 9.0 mg/dL Normal 8.4-10.4 [facility] Comment on above: Performed By: #### B NP3, TROPN, BMP3, HEMDF #### [facility] [address] [place] [address] Glucose [Mass/Vol] 105 mg/dL High 70-100 [facility] Comment on above: Performed By: #### B NP3, TROPN, BMP3, HEMDF #### [facility] [address] [place] [address] Urea nitrogen [Mass/Vol] 68 mg/dL High 7-17 [facility] Comment on above: Performed By: #### B NP3, TROPN, BMP3, HEMDF #### [facility] [address] [place] [address] Anion gap [Moles/Vol] 8 mmol/L Normal 3-13 [facility] Comment on above: Performed By: #### B NP3, TROPN, BMP3, HEMDF #### [facility] [address] [place] [address] AST [Catalytic activity/Vol] 44 U/L Normal 15-46 [facility] Comment on above: Performed By: #### B NP3, TROPN, BMP3, HEMDF #### [facility] [address] [place] [address] Bilirubin [Mass/Vol] 1.1 mg/dL Normal 0.2-1.3 [facility] Comment on above: Performed By: #### B NP3, TROPN, BMP3, HEMDF #### [facility] [address] [place] [address] CO2 [Moles/Vol] 29 mmol/L Normal 22-30 [facility] Comment on above: Performed By: #### B NP3, TROPN, BMP3, HEMDF #### [facility] [address] [place] [address] Creatinine [Mass/Vol] 2.50 mg/dL High 0.52-1.25 [facility] Comment on above: Performed By: #### B NP3, TROPN, BMP3, HEMDF #### [facility] [address] [place] [address] GFR/1.73 sq M.predicted among blacks MDRD (S/P/Bld) [Vol rate/Area] 26.7 mL/min/{1.73_m2} Abnormal >60 [facility] Comment on above: Performed By: #### B NP3, TROPN, BMP3, HEMDF #### [facility] [address] [place] [address] GFR/1.73 sq M.predicted among non-blacks MDRD (S/P/Bld) [Vol rate/Area] 23.1 mL/min/{1.73_m2} Abnormal >60 [facility] Comment on above: Result Comment: KDIG [...] #### B NP3, TROPN, BMP3, HEMDF #### [facility] [address] [place] [address] Protein [Mass/Vol] 6.3 g/dL Normal 6.3-8.2 [facility] Comment on above: Performed By: #### B NP3, TROPN, BMP3, HEMDF #### [facility] [address] [place] [address] Chloride [Moles/Vol] 101 mmol/L Normal 98-107 [facility] Comment on above: Performed By: #### B NP3, TROPN, BMP3, HEMDF #### [facility] [address] [place] [address] Potassium [Moles/Vol] 4.0 mmol/L Normal 3.5-5.1 [facility] Comment on above: Performed By: #### B NP3, TROPN, BMP3, HEMDF #### [facility] [address] [place] [address] Sodium [Moles/Vol] 138 mmol/L Normal 135-145 [facility] Comment on above: Performed By: #### B NP3, TROPN, BMP3, HEMDF #### [facility] [address] [place] [address] Albumin [Mass/Vol] 3.4 g/dL Low 3.5-5.0 [facility] Comment on above: Performed By: #### B NP3, TROPN, BMP3, HEMDF #### [facility] [address] [place] [address] Glucose,Bedsideon 05-17-2021 Glucose [Mass/Vol] 157 mg/dL High 70-100 [facility] Comment on above: Result Comment: Test performed by glucose meter. Results may be 10%-15% lower than serum/plasma values. (CLIA ID [id number]) Performed By: #### T ROPN, LACT3 #### [facility] [address] [place] [address] Glucose [Mass/Vol] 103 mg/dL High 70-100 [facility] Comment on above: Result Comment: Test performed by glucose meter. Results may be 10%-15% lower than serum/plasma values. (CLIA ID [id number]) Performed By: #### B GLU #### [facility] [address] [place] [address] Glucose [Mass/Vol] 124 mg/dL High 70-100 [facility] Comment on above: Result Comment: Test performed by glucose meter. Results may be 10%-15% lower than serum/plasma values. (CLIA ID [id number]) Performed By: #### L IPD2, BMP3, MG3 #### [facility] [address] [place] [address] Glucose [Mass/Vol] 112 mg/dL High 70-100 [facility] [facility] Comment on above: Result Comment: Test performed by glucose meter. Results may be 10%-15% lower than serum/plasma values. (CLIA ID [id number]) Performed By: #### B NP3, TROPN, BMP3, HEMDF #### [facility] [address] [place] [address] Hemogram w/ Autodiffon 05-17 Erythrocyte distribution width (RBC) [Ratio] 18.7 % High 11.5-14.5 [facility] Comment on above: Performed By: #### B NP3, TROPN, BMP3, HEMDF #### [facility] [address] [place] [address] Hematocrit (Bld) [Volume fraction] 33.4 % Low 40.0-52.0 [facility] Comment on above: Performed By: #### B NP3, TROPN, BMP3, HEMDF #### [facility] [address] [place] [address] Hemoglobin (Bld) [Mass/Vol] 10.8 g/dL Low 13.0-18.0 [facility] Comment on above: Performed By: #### B NP3, TROPN, BMP3, HEMDF #### [facility] [address] [place] [address] MCH (RBC) [Entitic mass] 29.8 pg Normal 26.0-34.0 [facility] Comment on above: Performed By: #### B NP3, TROPN, BMP3, HEMDF #### [facility] [address] [place] [address] MCHC 32.5 % Normal 32.0-36.0 [facility] Comment on above: Performed By: #### B NP3, TROPN, BMP3, HEMDF #### [facility] [address] [place] [address] MCV (RBC) [Entitic vol] 91.7 fL Normal 80.0-98.0 [facility] Comment on above: Performed By: #### B NP3, TROPN, BMP3, HEMDF #### [facility] [address] [place] [address] Platelet mean volume (Bld) [Entitic vol] 9.1 fL Normal 7.4-10.4 [facility] Comment on above: Performed By: #### B NP3, TROPN, BMP3, HEMDF #### [facility] [address] [place] [address] Platelets (Bld) [#/Vol] 206 10*3/uL Normal 140-440 [facility] Comment on above: Performed By: #### B NP3, TROPN, BMP3, HEMDF #### [facility] [address] [place] [address] RBC (Bld) [#/Vol] 3.64 10*6/uL Low 4.40-5.90 [facility] Comment on above: Performed By: #### B NP3, TROPN, BMP3, HEMDF #### [facility] [address] [place] [address] WBC (Bld) [#/Vol] 4.0 10*3/uL Normal 3.6-10.7 [facility] Comment on above: Performed By: #### B NP3, TROPN, BMP3, HEMDF #### [facility] [address] [place] [address] Magnesiumon 05-17-2021 Magnesium [Mass/Vol] 1.7 mg/dL Normal 1.6-2.3 [facility] Comment on above: Performed By: #### B NP3, TROPN, BMP3, HEMDF #### [facility] [address] [place] [address] Manual Diffon 05-17-2021 Abs Baso Cnt 0.1 10*3/uL Normal 0.0-0.[address] [facility] Comment on above: Performed By: #### B NP3, TROPN, BMP3, HEMDF #### [facility] [address] [place] [address] Abs Eosin Cnt 0.2 10*3/uL Normal 0.0-0.5 [facility] Comment on above: Performed By: #### B NP3, TROPN, BMP3, HEMDF #### [facility] [address] [place] [address] Abs Lymph Cnt 0.7 10*3/uL Low 1.1-4.5 [facility] Comment on above: Performed By: #### B NP3, TROPN, BMP3, HEMDF #### [facility] [address] [place] [address] Abs Monocyte Cnt 0.1 10*3/uL Low 0.2-1.1 [facility] Comment on above: Performed By: #### B NP3, TROPN, BMP3, HEMDF #### [facility] [address] [place] [address] Abs Neutrophile Cnt 2.9 10*3/uL Normal 2.2-8.2 [facility] Comment on above: Performed By: #### B NP3, TROPN, BMP3, HEMDF #### [facility] [address] [place] [address] Acanthocytes Slight Normal [facility] Comment on above: Performed By: #### B NP3, TROPN, BMP3, HEMDF #### [facility] [address] [place] [address] Anisocytosis Slight Normal [facility] Comment on above: Performed By: #### B NP3, TROPN, BMP3, HEMDF #### [facility] [address] [place] [address] Bands 0 % Normal 0-3 [facility] Comment on above: Performed By: #### B NP3, TROPN, BMP3, HEMDF #### [facility] [address] [place] [address] Basophils 3 % High 0-2 [facility] Comment on above: Performed By: #### B NP3, TROPN, BMP3, HEMDF #### [facility] [address] [place] [address] [place] Cells Slight Normal [facility] Comment on above: Performed By: #### B NP3, TROPN, BMP3, HEMDF #### [facility] [address] [place] [address] Cells counted [address] [facility] Comment on above: Performed By: #### B NP3, TROPN, BMP3, HEMDF #### [facility] [address] [place] [address] Eosinophils 5 % Normal 1-6 [facility] Comment on above: Performed By: #### B NP3, TROPN, BMP3, HEMDF #### [facility] [address] [place] [address] Hypochromia Slight Normal [facility] Comment on above: Performed By: #### B NP3, TROPN, BMP3, HEMDF #### [facility] [address] [place] [address] Lymphocytes 17 % Low 20-40 [facility] Comment on above: Performed By: #### B NP3, TROPN, BMP3, HEMDF #### [facility] [address] [place] [address] Monocytes 3 % Normal 2-10 [facility] Comment on above: Performed By: #### B NP3, TROPN, BMP3, HEMDF #### [facility] [address] [place] [address] Ovalocytes Slight Normal [facility] Comment on above: Performed By: #### B NP3, TROPN, BMP3, HEMDF #### [facility] [address] [place] [address] Poikilocytosis Slight Normal [facility] Comment on above: Performed By: #### B NP3, TROPN, BMP3, HEMDF #### [facility] [address] [place] [address] Polychromasia Slight Normal [facility] Comment on above: Performed By: #### B NP3, TROPN, BMP3, HEMDF #### [facility] [address] [place] [address] RBC Morphology ABNORMAL Normal [facility] Comment on above: Performed By: #### B NP3, TROPN, BMP3, HEMDF #### [facility] [address] [place] [address] Seg Neutrophils 72 % Normal 40-80 [facility] Comment on above: Performed By: #### B NP3, TROPN, BMP3, HEMDF #### [facility] [address] [place] [address] Tear Drop Forms Slight Normal [facility] Comment on above: Performed By: #### B NP3, TROPN, BMP3, HEMDF #### [facility] [address] [place] [address] Basic Metabolic Panelon 10-2 -2020 Calcium [Mass/Vol] 9.8 mg/dL Normal 8.4-10.4 [facility] Comment on above: Performed By: #### T ROPN, LACT3 #### [facility] [address] [place] [address] Anion gap [Moles/Vol] 12 mmol/L Normal 3-13 [facility] Comment on above: Performed By: #### T ROPN, LACT3 #### [facility] [address] [place] [address] CO2 [Moles/Vol] 27 mmol/L Normal 22-30 [facility] Comment on above: Performed By: #### T CASSY, LACT3 #### [facility] [address] [place] [address] Creatinine [Mass/Vol] 2.67 mg/dL High 0.52-1.25 [facility] Comment on above: Performed By: #### T CHELEN, LACT3 #### [facility] [address] [place] [address] GFR/1.73 sq M.predicted among blacks MDRD (S/P/Bld) [Vol rate/Area] 24.7 mL/min/{1.73_m2} Abnormal >60 [facility] Comment on above: Performed By: #### T CASSY LACT3 #### [facility] [address] [place] [address] GFR/1.73 sq M.predicted among non-blacks MDRD (S/P/Bld) [Vol rate/Area] 21.3 mL/min/{1.73_m2} Abnormal >60 [facility] Comment on above: Result Comment: KDIG [...] tubular creatinine secretion. Performed By: #### T CASSY, LACT3 #### [facility] [address] [place] [address] Glucose [Mass/Vol] 91 mg/dL Normal 70-100 [facility] Comment on above: Performed By: #### T CASSY, LACT3 #### [facility] [address] [place] [address] Urea nitrogen [Mass/Vol] 70 mg/dL High 7-17 [facility] Comment on above: Performed By: #### T ROPN, LACT3 #### [facility] [address] [place] [address] Chloride [Moles/Vol] 102 mmol/L Normal 98-107 [facility] Comment on above: Performed By: #### T ROPN, LACT3 #### [facility] [address] [place] [address] Potassium [Moles/Vol] 4.4 mmol/L Normal 3.5-5.1 [facility] Comment on above: Performed By: #### T CASSY, LACT3 #### [facility] [address] [place] [address] Sodium [Moles/Vol] 140 mmol/L Normal 135-145 [facility] Comment on above: Performed By: #### T CASSY, LACT3 #### [facility] [address] [place] [address] Glucose,Bedsideon 05-16-2021 Glucose [Mass/Vol] 88 mg/dL Normal 70-100 [facility] Comment on above: Result Comment: Test performed by glucose meter. Results may be 10%-15% lower than serum/plasma values. (CLIA ID [id number]) Performed By: #### B GLU #### [facility] [address] [place] [address] Glucose [Mass/Vol] 145 mg/dL High 70-100 [facility] Comment on above: Result Comment: Test performed by glucose meter. Results may be 10%-15% lower than serum/plasma values. (CLIA ID [id number]) Performed By: #### T ROPN, LACT3 #### [facility] [address] [place] [address] Glucose [Mass/Vol] 83 mg/dL Normal 70-100 [facility] Comment on above: Result Comment: Test performed by glucose meter. Results may be 10%-15% lower than serum/plasma values. (CLIA ID [id number]) Performed By: #### T ROPN, LACT3 #### [facility] [address] [place] [address] Hemogram w/ Autodiffon 05-16 Abs Baso Cnt 0.1 10*3/uL Normal 0.0-0.2 [facility] Comment on above: Performed By: #### T ROPN, LACT3 #### [facility] [address] [place] [address] Abs Neutrophile Cnt 2.6 10*3/uL Normal 1.8-7.0 [facility] Comment on above: Performed By: #### T ROPN, LACT3 #### [facility] [address] [place] [address] Basophils/100 WBC (Bld) 1.8 % Normal 0.0-2.0 [facility] Comment on above: Performed By: #### T ROPN, LACT3 #### [facility] [address] [place] [address] Eosinophils (Bld) [#/Vol] 0.3 10*3/uL Normal 0.0-0.5 [facility] Comment on above: Performed By: #### T ROPN, LACT3 #### [facility] [address] [place] [address] Eosinophils/100 WBC (Bld) 6.2 % High 1.0-6.0 [facility] Comment on above: Performed By: #### T ROPN, LACT3 #### [facility] [address] [place] [address] Erythrocyte distribution width (RBC) [Ratio] 18.8 % High 11.5-14.5 [facility] Comment on above: Performed By: #### T ROPN, LACT3 #### [facility] [address] [place] [address] Granulocytes/100 WBC (Bld) 62.7 % Normal 40.0-80.0 [facility] Comment on above: Performed By: #### T ROPN, LACT3 #### [facility] [address] [place] [address] Hematocrit (Bld) [Volume fraction] 38.4 % Low 40.0-52.0 [facility] Comment on above: Performed By: #### T ROPN, LACT3 #### [facility] [address] [place] [address] Hemoglobin (Bld) [Mass/Vol] 12.7 g/dL Low 13.0-18.0 [facility] Comment on above: Performed By: #### T ROPN, LACT3 #### [facility] [address] [place] [address] Lymphocytes (Bld) [#/Vol] 0.7 10*3/uL Low 1.0-4.3 [facility] Comment on above: Performed By: #### T ROPN, LACT3 #### [facility] [address] [place] [address] Lymphocytes/100 WBC (Bld) 17.9 % Low 20.0-40.0 [facility] Comment on above: Performed By: #### T ROPN, LACT3 #### [facility] [address] [place] [address] MCH (RBC) [Entitic mass] 30.3 pg Normal 26.0-34.0 [facility] Comment on above: Performed By: #### T ROPN, LACT3 #### [facility] [address] [place] [address] MCHC 33.1 % Normal 32.0-36.0 [facility] Comment on above: Performed By: #### T ROPN, LACT3 #### [facility] [address] [place] [address] MCV (RBC) [Entitic vol] 91.5 fL Normal 80.0-98.0 [facility] Comment on above: Performed By: #### T ROPN, LACT3 #### [facility] [address] [place] [address] Monocytes (Bld) [#/Vol] 0.5 10*3/uL Normal 0.0-0.8 [facility] Comment on above: Performed By: #### T ROPN, LACT3 #### [facility] [address] [place] [address] Monocytes/100 WBC (Bld) 11.4 % High 2.0-10.0 [facility] Comment on above: Performed By: #### T ROPN, LACT3 #### [facility] [address] [place] [address] Platelet mean volume (Bld) [Entitic vol] 8.6 fL Normal 7.4-10.4 [facility] Comment on above: Performed By: #### T CASSY, LACT3 #### [facility] [address] [place] [address] Platelets (Bld) [#/Vol] 204 10*3/uL Normal 140-440 [facility] Comment on above: Performed By: #### T CASSY, LACT3 #### [facility] [address] [place] [address] RBC (Bld) [#/Vol] 4.20 10*6/uL Low 4.40-5.90 [facility] Comment on above: Performed By: #### T CASSY, LACT3 #### [facility] [address] [place] [address] WBC (Bld) [#/Vol] 4.2 10*3/uL Normal 3.6-10.7 [facility] Comment on above: Performed By: #### T CASSY, LACT3 #### [facility] [address] [place] [address] Magnesiumon 05-16-2021 Magnesium [Mass/Vol] 1.7 mg/dL Normal 1.6-2.3 [facility] Comment on above: Performed By: #### T CASSY, LACT3 #### [facility] [address] [place] [address] NT pro BNPon 05-16-2021 Natriuretic peptide B (Bld) [Mass/Vol] 28[address] pg/mL High 0-450 [facility] Comment on above: Performed By: #### T CASSY, LACT3 #### [facility] [address] [place] [address] Basic Metabolic Panelon 04-21 Calcium [Mass/Vol] 9.7 mg/dL Normal 8.4-10.4 [facility] Comment on above: Performed By: #### B GLU #### [facility] [address] [place] [address] Glucose [Mass/Vol] 84 mg/dL Normal 70-100 [facility] Comment on above: Performed By: #### B GLU #### [facility] [address] [place] [address] Urea nitrogen [Mass/Vol] 67 mg/dL High 7-17 [facility] Comment on above: Performed By: #### B GLU #### [facility] [address] [place] [address] Anion gap [Moles/Vol] 15 mmol/L High 3-13 [facility] Comment on above: Performed By: #### B GLU #### [facility] [address] [place] [address] CO2 [Moles/Vol] 25 mmol/L Normal 22-30 [facility] Comment on above: Performed By: #### B GLU #### [facility] [address] [place] [address] Creatinine [Mass/Vol] 2.84 mg/dL High 0.52-1.25 [facility] Comment on above: Performed By: #### B GLU #### [facility] [address] [place] [address] GFR/1.73 sq M.predicted among blacks MDRD (S/P/Bld) [Vol rate/Area] 22.9 mL/min/{1.73_m2} Abnormal >60 [facility] Comment on above: Performed By: #### B GLU #### [facility] [address] [place] [address] GFR/1.73 sq M.predicted among non-blacks MDRD (S/P/Bld) [Vol rate/Area] 19.8 mL/min/{1.73_m2} Abnormal >60 [facility] Comment on above: Result Comment: KDIG [...] secretion. Performed By: #### B GLU #### [facility] [address] [place] [address] Potassium [Moles/Vol] 4.6 mmol/L Normal 3.5-5.1 [facility] Comment on above: Performed By: #### B GLU #### [facility] [address] [place] [address] Chloride [Moles/Vol] 99 mmol/L Normal 98-107 [facility] Comment on above: Performed By: #### B GLU #### [facility] [address] [place] [address] Sodium [Moles/Vol] 139 mmol/L Normal 135-145 [facility] Comment on above: Performed By: #### B GLU #### [facility] [address] [place] [address] Glucose,Bedsideon 05-15-2021 Glucose [Mass/Vol] 81 mg/dL Normal 70-100 [facility] Comment on above: Result Comment: Test performed by glucose meter. Results may be 10%-15% lower than serum/plasma values. (CLIA ID [id number]) Performed By: #### B GLU #### [facility] [address] [place] [address] Glucose [Mass/Vol] 83 mg/dL Normal 70-100 [facility] Comment on above: Result Comment: Test performed by glucose meter. Results may be 10%-15% lower than serum/plasma values. (CLIA ID [id number]) Performed By: #### L IPD2, BMP3, MG3 #### [facility] [address] [place] [address] Glucose [Mass/Vol] 88 mg/dL Normal 70-100 [facility] Comment on above: Result Comment: Test performed by glucose meter. Results may be 10%-15% lower than serum/plasma values. (CLIA ID [id number]) Performed By: #### Larissa MADERA LACT3 #### [facility] [address] [place] [address] Glucose [Mass/Vol] 70 mg/dL Normal 70-100 [facility] Comment on above: Result Comment: Test performed by glucose meter. Results may be 10%-15% lower than serum/plasma values. (CLIA ID [id number]) Performed By: #### Larissa MADERA LACT3 #### [facility] [address] [place] [address] Hemogram w/ Autodiffon 05-15 Abs Baso Cnt 0.1 10*3/uL Normal 0.0-0.2 [facility] Comment on above: Performed By: #### B GLU #### [facility] [address] [place] [address] Abs Neutrophile Cnt 2.7 10*3/uL Normal 1.8-7.0 [facility] Comment on above: Performed By: #### B GLU #### [facility] [address] [place] [address] Basophils/100 WBC (Bld) 1.7 % Normal 0.0-2.0 [facility] Comment on above: Performed By: #### B GLU #### [facility] [address] [place] [address] Eosinophils (Bld) [#/Vol] 0.2 10*3/uL Normal 0.0-0.5 [facility] Comment on above: Performed By: #### B GLU #### [facility] [address] [place] [address] Eosinophils/100 WBC (Bld) 3.5 % Normal 1.0-6.0 [facility] Comment on above: Performed By: #### B GLU #### [facility] [address] [place] [address] Erythrocyte distribution width (RBC) [Ratio] 18.8 % High 11.5-14.5 [facility] Comment on above: Performed By: #### B GLU #### [facility] [address] [place] [address] Granulocytes/100 WBC (Bld) 59.1 % Normal 40.0-80.0 [facility] Comment on above: Performed By: #### B GLU #### [facility] [address] [place] [address] Hematocrit (Bld) [Volume fraction] 40.7 % Normal 40.0-52.0 [facility] Comment on above: Performed By: #### B GLU #### [facility] [address] [place] [address] Hemoglobin (Bld) [Mass/Vol] 13.0 g/dL Normal 13.0-18.0 [facility] Comment on above: Performed By: #### B GLU #### [facility] [address] [place] [address] Lymphocytes (Bld) [#/Vol] 1.0 10*3/uL Normal 1.0-4.3 [facility] Comment on above: Performed By: #### B GLU #### [facility] [address] [place] [address] Lymphocytes/100 WBC (Bld) 21.9 % Normal 20.0-40.0 [facility] Comment on above: Performed By: #### B GLU #### [facility] [address] [place] [address] MCH (RBC) [Entitic mass] 29.8 pg Normal 26.0-34.0 [facility] Comment on above: Performed By: #### B GLU #### [facility] [address] [place] [address] MCHC 31.9 % Low 32.0-36.0 [facility] Comment on above: Performed By: #### B GLU #### [facility] [address] [place] [address] MCV (RBC) [Entitic vol] 93.2 fL Normal 80.0-98.0 [facility] Comment on above: Performed By: #### B GLU #### [facility] [address] [place] [address] Monocytes (Bld) [#/Vol] 0.6 10*3/uL Normal 0.0-0.8 [facility] Comment on above: Performed By: #### B GLU #### [facility] [address] [place] [address] Monocytes/100 WBC (Bld) 13.8 % High 2.0-10.0 [facility] Comment on above: Performed By: #### B GLU #### [facility] [address] [place] [address] Platelet mean volume (Bld) [Entitic vol] 8.7 fL Normal 7.4-10.4 [facility] Comment on above: Performed By: #### B GLU #### [facility] [address] [place] [address] Platelets (Bld) [#/Vol] 227 10*3/uL Normal 140-440 [facility] Comment on above: Performed By: #### B GLU #### [facility] [address] [place] [address] RBC (Bld) [#/Vol] 4.37 10*6/uL Low 4.40-5.90 [facility] Comment on above: Performed By: #### B GLU #### [facility] [address] [place] [address] WBC (Bld) [#/Vol] 4.6 10*3/uL Normal 3.6-10.7 [facility] Comment on above: Performed By: #### B GLU #### [facility] [address] [place] [address] Magnesiumon 05-15-2021 Magnesium [Mass/Vol] 1.6 mg/dL Normal 1.6-2.3 [facility] Comment on above: Performed By: #### B GLU #### [facility] [address] [place] [address] Basic Metabolic Panelon 04-21 Calcium [Mass/Vol] 9.7 mg/dL Normal 8.4-10.4 [facility] Comment on above: Performed By: #### L IPD2, BMP3, MG3 #### [facility] [address] [place] [address] Glucose [Mass/Vol] 111 mg/dL High 70-100 [facility] Comment on above: Performed By: #### L IPD2, BMP3, MG3 #### [facility] [address] [place] [address] Urea nitrogen [Mass/Vol] 64 mg/dL High 7-17 [facility] Comment on above: Performed By: #### L IPD2, BMP3, MG3 #### [facility] [address] [place] [address] Anion gap [Moles/Vol] 14 mmol/L High 3-13 [facility] Comment on above: Performed By: #### L IPD2, BMP3, MG3 #### [facility] [address] [place] [address] CO2 [Moles/Vol] 25 mmol/L Normal 22-30 [facility] Comment on above: Performed By: #### L IPD2, BMP3, MG3 #### [facility] [address] [place] [address] Creatinine [Mass/Vol] 2.95 mg/dL High 0.52-1.25 [facility] Comment on above: Performed By: #### L IPD2, BMP3, MG3 #### [facility] [address] [place] [address] GFR/1.73 sq M.predicted among blacks MDRD (S/P/Bld) [Vol rate/Area] 21.9 mL/min/{1.73_m2} Abnormal >60 [facility] Comment on above: Performed By: #### L IPD2, BMP3, MG3 #### [facility] [address] [place] [address] GFR/1.73 sq M.predicted among non-blacks MDRD (S/P/Bld) [Vol rate/Area] 18.9 mL/min/{1.73_m2} Abnormal >60 [facility] Comment on above: Result Comment: KDIG [...] By: #### L IPD2, BMP3, MG3 #### [facility] [address] [place] [address] Potassium [Moles/Vol] 4.1 mmol/L Normal 3.5-5.1 [facility] Comment on above: Performed By: #### L IPD2, BMP3, MG3 #### [facility] [address] [place] [address] Chloride [Moles/Vol] 103 mmol/L Normal 98-107 [facility] Comment on above: Performed By: #### L IPD2, BMP3, MG3 #### [facility] [address] [place] [address] Sodium [Moles/Vol] 142 mmol/L Normal 135-145 [facility] Comment on above: Performed By: #### L IPD2, BMP3, MG3 #### [facility] [address] [place] [address] Glucose,Bedsideon 05-14-2021 Glucose [Mass/Vol] 115 mg/dL High 70-100 [facility] Comment on above: Result Comment: Test performed by glucose meter. Results may be 10%-15% lower than serum/plasma values. (CLIA ID [id number]) Performed By: #### B GLU #### [facility] [address] [place] [address] Glucose [Mass/Vol] 93 mg/dL Normal 70-100 [facility] Comment on above: Result Comment: Test performed by glucose meter. Results may be 10%-15% lower than serum/plasma values. (CLIA ID [id number]) Performed By: #### L IPD2, BMP3, MG3 #### [facility] [address] [place] [address] Glucose [Mass/Vol] 141 mg/dL High 70-100 [facility] Comment on above: Result Comment: Test performed by glucose meter. Results may be 10%-15% lower than serum/plasma values. (CLIA ID [id number]) Performed By: #### B GLU #### [facility] [address] [place] [address] Glucose [Mass/Vol] 114 mg/dL High 70-100 [facility] Comment on above: Result Comment: Test performed by glucose meter. Results may be 10%-15% lower than serum/plasma values. (CLIA ID [id number]) Performed By: #### B GLU #### [facility] [address] [place] [address] Glucose [Mass/Vol] 96 mg/dL Normal 70-100 [facility] Comment on above: Result Comment: Test performed by glucose meter. Results may be 10%-15% lower than serum/plasma values. (CLIA ID [id number]) Performed By: #### B NP3, TROPN, BMP3, HEMDF #### [facility] [address] [place] [address] Glucose [Mass/Vol] 62 mg/dL Low 70-100 [facility] Comment on above: Result Comment: Test performed by glucose meter. Results may be 10%-15% lower than serum/plasma values. (CLIA ID [id number]) Performed By: #### L IPD2, BMP3, MG3 #### [facility] [address] [place] [address] Lipid Panelon 05-14-2021 Chol/HDL 5 Normal [facility] Comment on above: Result Comment: Ref Range: < 3 Low Risk for CHD 3-6 Mod Risk for CHD > 6 High Risk for CHD Performed By: #### L IPD2, BMP3, MG3 #### [facility] [address] [place] [address] Cholesterol in HDL [Mass/Vol] 34 mg/dL Low 40-60 [facility] Comment on above: Performed By: #### L IPD2, BMP3, MG3 #### [facility] [address] [place] [address] Low Density Lipoprotein 110 mg/dL Abnormal <100 [facility] Comment on above: Performed By: #### L IPD2, BMP3, MG3 #### [facility] [address] [place] [address] Triglyceride [Mass/Vol] 109 mg/dL Normal <150 [facility] Comment on above: Performed By: #### L IPD2, BMP3, MG3 #### [facility] [address] [place] [address] Cholesterol [Mass/Vol] 166 mg/dL Normal < 200 [facility] Comment on above: Performed By: #### L IPD2, BMP3, MG3 #### [facility] [address] [place] [address] Magnesiumon 05-14-2021 Magnesium [Mass/Vol] 1.5 mg/dL Low 1.6-2.3 [facility] Comment on above: Performed By: #### L IPD2, BMP3, MG3 #### [facility] [address] [place] [address] Troponin Ion 05-14-2021 Troponin I.cardiac [Mass/Vol] 0.029 ng/mL Normal 0.000-0.034 [facility] Comment on above: Result Comment: . Performed By: #### B GLU #### [facility] [address] [place] [address] Troponin I.cardiac [Mass/Vol] 0.029 ng/mL Normal 0.000-0.034 [facility] Comment on above: Result Comment: . Performed By: #### L IPD2, BMP3, MG3 #### [facility] [address] [place] [address] Troponin I.cardiac [Mass/Vol] 0.033 ng/mL Normal 0.000-0.034 [facility] Comment on above: Result Comment: . Performed By: #### B NP3, TROPN, BMP3, HEMDF #### [facility] [address] [place] [address] VL Venous Duplex US Lower Ex t Bilateralon 05-14-2021 VL Venous Duplex US Lower Ext Bilateral Patient Name: MEGAN NASCIMENTO Ultrasound ACCESSION EXAM DATE/TIME PROCEDURE ORDERING PROVIDER [id number] 05/14/2021 09:25 EDT VL Venous Duplex US MD HARLEY PRAMOD Lower Ext Bilateral CPT code 94963 Reason For Exam (VL Venous Duplex US Lower Ext Bilateral) LE edema Report [facility] Lower Extremity Venous Duplex Report Patient Azam, : 1940 Study 05/14/2021 Name: Megan Higuera (80yrs) Date: Patient [id number] Age: 80 Account: [id number] ID: Gender: [id number] Loc: 444 BP: Ordering Physician: Gregg Harley Bioanalyst: Nohemi Davenport RDMS, T Interpreting Physician: Paz Nielson MD Location: [facility] Indications: Edema of the bilateral lower legs. [...] supine position. Images were obtained using a Mashable E9 vascular ultrasound machine. Ultrasound Report Venous [...] + + (more content not included)... Normal [facility] Basic Metabolic Panelon 10-2 Anion gap [Moles/Vol] 14 mmol/L High 3-13 [facility] Comment on above: Performed By: #### B NP3, TROPN, BMP3, HEMDF #### [facility] [address] [place] [address] Calcium [Mass/Vol] 9.6 mg/dL Normal 8.4-10.4 [facility] Comment on above: Performed By: #### B NP3, TROPN, BMP3, HEMDF #### [facility] [address] [place] [address] CO2 [Moles/Vol] 27 mmol/L Normal 22-30 [facility] Comment on above: Performed By: #### B NP3, TROPN, BMP3, HEMDF #### [facility] [address] [place] [address] Glucose [Mass/Vol] 105 mg/dL High 70-100 [facility] Comment on above: Performed By: #### B NP3, TROPN, BMP3, HEMDF #### [facility] [address] [place] [address] Urea nitrogen [Mass/Vol] 65 mg/dL High 7-17 [facility] Comment on above: Performed By: #### B NP3, TROPN, BMP3, HEMDF #### [facility] [address] [place] [address] Creatinine [Mass/Vol] 2.93 mg/dL High 0.52-1.25 [facility] Comment on above: Performed By: #### B NP3, TROPN, BMP3, HEMDF #### [facility] [address] [place] [address] GFR/1.73 sq M.predicted among blacks MDRD (S/P/Bld) [Vol rate/Area] 22.1 mL/min/{1.73_m2} Abnormal >60 [facility] Comment on above: Performed By: #### B NP3, TROPN, BMP3, HEMDF #### [facility] [address] [place] [address] GFR/1.73 sq M.predicted among non-blacks MDRD (S/P/Bld) [Vol rate/Area] 19.0 mL/min/{1.73_m2} Abnormal >60 [facility] Comment on above: Result Comment: KDIG [...] #### B NP3, TROPN, BMP3, HEMDF #### [facility] [address] [place] [address] Potassium [Moles/Vol] 4.2 mmol/L Normal 3.5-5.1 [facility] Comment on above: Performed By: #### B NP3, TROPN, BMP3, HEMDF #### [facility] [address] [place] [address] Chloride [Moles/Vol] 102 mmol/L Normal 98-107 [facility] Comment on above: Performed By: #### B NP3, TROPN, BMP3, HEMDF #### [facility] [address] [place] [address] Sodium [Moles/Vol] 144 mmol/L Normal 135-145 [facility] Comment on above: Performed By: #### B NP3, TROPN, BMP3, HEMDF #### [facility] [address] [place] [address] CR Chest Portableon 05-13-20 21 CR Chest Portable Patient Name: MEGAN NASCIMENTO Diagnostic Radiology ACCESSION EXAM DATE/TIME PROCEDURE ORDERING PROVIDER [id number] 05/13/2021 18:14 EDT CR Chest Portable [id number] NATALY VEGA CPT code 38692 Reason For Exam (CR Chest Portable) SOB [...] Transcribed Date and Time: 05/13/2021 6:42 Normal [facility] Complete Urinalysison 2020 Appearance (U) Clear Normal Clear [facility] Comment on above: Result Comment: . Performed By: #### B NP3, TROPN, BMP3, HEMDF #### [facility] [address] [place] [address] Bilirubin,Urine Negative Normal Negative [facility] Comment on above: Result Comment: . Performed By: #### B NP3, TROPN, BMP3, HEMDF #### [facility] [address] [place] [address] Color (U) Yellow Normal Lt. Yellow [facility] Comment on above: Result Comment: . Performed By: #### B NP3, TROPN, BMP3, HEMDF #### [facility] [address] [place] [address] Glucose Ql (U) Normal Normal Normal (<70) [facility] Comment on above: Result Comment: . Performed By: #### B NP3, TROPN, BMP3, HEMDF #### [facility] [address] [place] [address] Ketone,Urine Negative Normal Negative [facility] Comment on above: Result Comment: . Performed By: #### B NP3, TROPN, BMP3, HEMDF #### [facility] [address] [place] [address] Leukocytes,Urine Negative Normal Negative [facility] Comment on above: Result Comment: . Performed By: #### B NP3, TROPN, BMP3, HEMDF #### [facility] [address] [place] [address] Nitrites,Urine Negative Normal Negative [facility] Comment on above: Result Comment: . Performed By: #### B NP3, TROPN, BMP3, HEMDF #### [facility] [address] [place] [address] Occult Blood,Urine Negative Normal Negative [facility] Comment on above: Result Comment: . Performed By: #### B NP3, TROPN, BMP3, HEMDF #### [facility] [address] [place] [address] pH,Urine 5.0 Normal 5.0-8.0 [facility] Comment on above: Result Comment: . Performed By: #### B NP3, TROPN, BMP3, HEMDF #### [facility] [address] [place] [address] Specific Clarks,Urine 1.012 Normal 1.005 - 1.030 [facility] Comment on above: Result Comment: . Performed By: #### B NP3, TROPN, BMP3, HEMDF #### [facility] [address] [place] [address] Total Protein,Urine Negative Normal Negative [facility] Comment on above: Result Comment: . Performed By: #### B NP3, TROPN, BMP3, HEMDF #### [facility] [address] [place] [address] Urobilinogen,Urine Normal Normal Normal (0-1) [facility] Comment on above: Result Comment: . Performed By: #### B NP3, TROPN, BMP3, HEMDF #### [facility] [address] [place] [address] ED Provider Noteon 1 ED Provider Note [...] patient's emergency department visit, please see the [facility] provider's documentation. Jadon Lora DO 05/15/21 0410 [facility] ED Provider Note Emergency Department Encounter [facility] ED Patient: Megan Nascimento : 1940 Date of Evaluation: 05/13/2021 ED Provider: DASIA Dorado EDcare was supervised by Dr. Lora who independently examined and evaluated the patient. Please see their attestation note for further details. Chief Complaint Chief Complaint Patient presents with ? Urinary Retention ? Leg Swelling [facility] (Location/Symptom, Timing/Onset, Context/Setting, Quality, Duration, Modifying Factors, [...] is on a water pill, saw his sanitor 2 weeks ago, and he was 15 pounds up, but his sanitor Dr. Lucas was okay with that because [...] otherwise acutely negative except as in the [facility]. Past History Past Medical History: Diagnosis Date [...] Gatherings with Friends and Family: ? Attends [employer]: ? Active Member of Clubs or [...] Inhale 2 (more content not included)... Normal [facility] Hemogram w/ Autodiffon 05-13 Abs Baso Cnt 0.0 10*3/uL Normal 0.0-0.2 [facility] Comment on above: Performed By: #### B NP3, TROPN, BMP3, HEMDF #### [facility] [address] [place] [address] Abs Neutrophile Cnt 3.5 10*3/uL Normal 1.8-7.0 [facility] Comment on above: Performed By: #### B NP3, TROPN, BMP3, HEMDF #### [facility] [address] [place] [address] Basophils/100 WBC (Bld) 0.8 % Normal 0.0-2.0 [facility] Comment on above: Performed By: #### B NP3, TROPN, BMP3, HEMDF #### [facility] [address] [place] [address] Eosinophils (Bld) [#/Vol] 0.3 10*3/uL Normal 0.0-0.5 [facility] Comment on above: Performed By: #### B NP3, TROPN, BMP3, HEMDF #### [facility] [address] [place] [address] Eosinophils/100 WBC (Bld) 5.9 % Normal 1.0-6.0 [facility] Comment on above: Performed By: #### B NP3, TROPN, BMP3, HEMDF #### [facility] [address] [place] [address] Erythrocyte distribution width (RBC) [Ratio] 18.3 % High 11.5-14.5 [facility] Comment on above: Performed By: #### B NP3, TROPN, BMP3, HEMDF #### [facility] [address] [place] [address] Granulocytes/100 WBC (Bld) 69.0 % Normal 40.0-80.0 [facility] Comment on above: Performed By: #### B NP3, TROPN, BMP3, HEMDF #### [facility] [address] [place] [address] Hematocrit (Bld) [Volume fraction] 37.8 % Low 40.0-52.0 [facility] Comment on above: Performed By: #### B NP3, TROPN, BMP3, HEMDF #### [facility] [address] [place] [address] Hemoglobin (Bld) [Mass/Vol] 12.2 g/dL Low 13.0-18.0 [facility] Comment on above: Performed By: #### B NP3, TROPN, BMP3, HEMDF #### [facility] [address] [place] [address] Lymphocytes (Bld) [#/Vol] 0.8 10*3/uL Low 1.0-4.3 [facility] Comment on above: Performed By: #### B NP3, TROPN, BMP3, HEMDF #### [facility] [address] [place] [address] Lymphocytes/100 WBC (Bld) 14.9 % Low 20.0-40.0 [facility] Comment on above: Performed By: #### B NP3, TROPN, BMP3, HEMDF #### [facility] [address] [place] [address] MCH (RBC) [Entitic mass] 29.7 pg Normal 26.0-34.0 [facility] Comment on above: Performed By: #### B NP3, TROPN, BMP3, HEMDF #### [facility] [address] [place] [address] MCHC 32.3 % Normal 32.0-36.0 [facility] Comment on above: Performed By: #### B NP3, TROPN, BMP3, HEMDF #### [facility] [address] [place] [address] MCV (RBC) [Entitic vol] 92.1 fL Normal 80.0-98.0 [facility] Comment on above: Performed By: #### B NP3, TROPN, BMP3, HEMDF #### [facility] [address] [place] [address] Monocytes (Bld) [#/Vol] 0.5 10*3/uL Normal 0.0-0.8 [facility] Comment on above: Performed By: #### B NP3, TROPN, BMP3, HEMDF #### [facility] [address] [place] [address] Monocytes/100 WBC (Bld) 9.4 % Normal 2.0-10.0 [facility] Comment on above: Performed By: #### B NP3, TROPN, BMP3, HEMDF #### [facility] [address] [place] [address] Platelet mean volume (Bld) [Entitic vol] 9.1 fL Normal 7.4-10.4 [facility] Comment on above: Performed By: #### B NP3, TROPN, BMP3, HEMDF #### [facility] [address] [place] [address] Platelets (Bld) [#/Vol] 252 10*3/uL Normal 140-440 [facility] Comment on above: Performed By: #### B NP3, TROPN, BMP3, HEMDF #### [facility] [address] [place] [address] RBC (Bld) [#/Vol] 4.11 10*6/uL Low 4.40-5.90 [facility] Comment on above: Performed By: #### B NP3, TROPN, BMP3, HEMDF #### [facility] [address] [place] [address] WBC (Bld) [#/Vol] 5.1 10*3/uL Normal 3.6-10.7 [facility] Comment on above: Performed By: #### B NP3, TROPN, BMP3, HEMDF #### [facility] [address] [place] [address] NT pro BNPon 05-13-2021 Natriuretic peptide B (Bld) [Mass/Vol] 77257 pg/mL High 0-450 [facility] Comment on above: Performed By: #### B NP3, TROPN, BMP3, HEMDF #### [facility] [address] [place] [address] Troponin Ion 05-13-2021 Troponin I.cardiac [Mass/Vol] 0.035 ng/mL High 0.000-0.034 [facility] Comment on above: Result Comment: . Performed By: #### B NP3, TROPN, BMP3, HEMDF #### [facility] [address] [place] [address] CULTURE BLOODon 02-04-2021 Microscopic examination of blood, culture CULTURE BLOOD --> Status: F No growth at 5 days. Normal [facility] Comment on above: Performed By: #### B NP3, TROPN, BMP3, HEMDF #### [facility] [address] [place] [address] CULTURE BLOOD (Two)on 2020 Microscopic examination of blood, culture CULTURE BLOOD (Two) --> Status: F No growth at 5 days. Normal [facility] Comment on above: Performed By: #### B GLU #### [facility] [address] [place] [address] Basic Metabolic Panelon 07-1 Anion gap [Moles/Vol] 6 mmol/L Normal 3-13 [facility] Comment on above: Performed By: #### B GLU #### [facility] [address] [place] [address] Calcium [Mass/Vol] 9.2 mg/dL Normal 8.4-10.4 [facility] Comment on above: Performed By: #### B GLU #### [facility] [address] [place] [address] CO2 [Moles/Vol] 34 mmol/L High 22-30 [facility] Comment on above: Performed By: #### B GLU #### [facility] [address] [place] [address] Glucose [Mass/Vol] 84 mg/dL Normal 70-100 [facility] Comment on above: Performed By: #### B GLU #### [facility] [address] [place] [address] Urea nitrogen [Mass/Vol] 49 mg/dL High 7-20 [facility] Comment on above: Performed By: #### B GLU #### [facility] [address] [place] [address] Creatinine [Mass/Vol] 2.60 mg/dL High 0.52-1.25 [facility] Comment on above: Performed By: #### B GLU #### [facility] [address] [place] [address] GFR/1.73 sq M.predicted among blacks MDRD (S/P/Bld) [Vol rate/Area] 25.5 mL/min/{1.73_m2} Abnormal >60 [facility] Comment on above: Performed By: #### B GLU #### [facility] [address] [place] [address] GFR/1.73 sq M.predicted among non-blacks MDRD (S/P/Bld) [Vol rate/Area] 22.0 mL/min/{1.73_m2} Abnormal >60 [facility] Comment on above: Result Comment: KDIG [...] secretion. Performed By: #### B GLU #### [facility] [address] [place] [address] Potassium [Moles/Vol] 3.1 mmol/L Low 3.5-5.1 [facility] Comment on above: Performed By: #### B GLU #### [address] [place] [address] Sodium [Moles/Vol] 135 mmol/L Normal 135-145 [facility] Comment on above: Performed By: #### B GLU #### [place] [address] [place] [address] Chloride [Moles/Vol] 95 mmol/L Low 98-107 [facility] Comment on above: Performed By: #### B GLU #### [address] [place] [address] Hemogram w/ Autodiffon 02-01 Abs Baso Cnt 0.1 10*3/uL Normal 0.0-0.2 [facility] Comment on above: Performed By: #### B GLU #### [facility] [address] [place] [address] Abs Neutrophile Cnt 2.8 10*3/uL Normal 1.8-7.0 [facility] Comment on above: Performed By: #### B GLU #### [address] [place] [address] Basophils/100 WBC (Bld) 2.0 % Normal 0.0-2.0 [facility] Comment on above: Performed By: #### B GLU #### [address] [place] [address] Eosinophils (Bld) [#/Vol] 0.4 10*3/uL Normal 0.0-0.5 [facility] Comment on above: Performed By: #### B GLU #### [facility] [address] [place] [address] Eosinophils/100 WBC (Bld) 9.1 % High 1.0-6.0 [facility] Comment on above: Performed By: #### B GLU #### [facility] [address] [place] [address] Erythrocyte distribution width (RBC) [Ratio] 17.4 % High 11.5-14.5 [facility] Comment on above: Performed By: #### B GLU #### [facility] [address] [place] [address] Granulocytes/100 WBC (Bld) 61.3 % Normal 40.0-80.0 [facility] Comment on above: Performed By: #### B GLU #### [facility] [address] [place] [address] Hematocrit (Bld) [Volume fraction] 35.8 % Low 40.0-52.0 [facility] Comment on above: Performed By: #### B GLU #### [facility] [address] [place] [address] Hemoglobin (Bld) [Mass/Vol] 12.1 g/dL Low 13.0-18.0 [facility] Comment on above: Performed By: #### B GLU #### [facility] [address] [place] [address] Lymphocytes (Bld) [#/Vol] 0.8 10*3/uL Low 1.0-4.3 [facility] Comment on above: Performed By: #### B GLU #### [facility] [address] [place] [address] Lymphocytes/100 WBC (Bld) 18.4 % Low 20.0-40.0 [facility] Comment on above: Performed By: #### B GLU #### [facility] [address] [place] [address] MCH (RBC) [Entitic mass] 30.9 pg Normal 26.0-34.0 [facility] Comment on above: Performed By: #### B GLU #### [facility] [address] [place] [address] MCHC 33.8 % Normal 32.0-36.0 [facility] Comment on above: Performed By: #### B GLU #### [facility] [address] [place] [address] MCV (RBC) [Entitic vol] 91.6 fL Normal 80.0-98.0 [facility] Comment on above: Performed By: #### B GLU #### [facility] [address] [place] [address] Monocytes (Bld) [#/Vol] 0.4 10*3/uL Normal 0.0-0.8 [facility] Comment on above: Performed By: #### B GLU #### [facility] [address] [place] [address] Monocytes/100 WBC (Bld) 9.2 % Normal 2.0-10.0 [facility] Comment on above: Performed By: #### B GLU #### [facility] [address] [place] [address] Platelet mean volume (Bld) [Entitic vol] 8.9 fL Normal 7.4-10.4 [facility] Comment on above: Performed By: #### B GLU #### [facility] [address] [place] [address] Platelets (Bld) [#/Vol] 193 10*3/uL Normal 140-440 [facility] Comment on above: Performed By: #### B GLU #### [facility] [address] [place] [address] RBC (Bld) [#/Vol] 3.91 10*6/uL Low 4.40-5.90 [facility] Comment on above: Performed By: #### B GLU #### [facility] [address] [place] [address] WBC (Bld) [#/Vol] 4.5 10*3/uL Normal 3.6-10.7 [facility] Comment on above: Performed By: #### B GLU #### [facility] [address] [place] [address] Basic Metabolic Panelon 07-1 Calcium [Mass/Vol] 9.4 mg/dL Normal 8.4-10.4 [facility] Comment on above: Performed By: #### B NP3, TROPN, BMP3, HEMDF #### [facility] [address] [place] [address] Glucose [Mass/Vol] 95 mg/dL Normal 70-100 [facility] Comment on above: Performed By: #### B NP3, TROPN, BMP3, HEMDF #### [facility] [address] [place] [address] Urea nitrogen [Mass/Vol] 51 mg/dL High 7-20 [facility] Comment on above: Performed By: #### B NP3, TROPN, BMP3, HEMDF #### [facility] [address] [place] [address] Anion gap [Moles/Vol] 9 mmol/L Normal 3-13 [facility] Comment on above: Performed By: #### B NP3, TROPN, BMP3, HEMDF #### [facility] [address] [place] [address] CO2 [Moles/Vol] 30 mmol/L Normal 22-30 [facility] Comment on above: Performed By: #### B NP3, TROPN, BMP3, HEMDF #### [facility] [address] [place] [address] Creatinine [Mass/Vol] 2.58 mg/dL High 0.52-1.25 [facility] Comment on above: Performed By: #### B NP3, TROPN, BMP3, HEMDF #### [facility] [address] [place] [address] GFR/1.73 sq M.predicted among blacks MDRD (S/P/Bld) [Vol rate/Area] 25.8 mL/min/{1.73_m2} Abnormal >60 [facility] Comment on above: Performed By: #### B NP3, TROPN, BMP3, HEMDF #### [facility] [address] [place] [address] GFR/1.73 sq M.predicted among non-blacks MDRD (S/P/Bld) [Vol rate/Area] 22.2 mL/min/{1.73_m2} Abnormal >60 [facility] Comment on above: Result Comment: KDIG [...] #### B NP3, TROPN, BMP3, HEMDF #### [facility] [address] [place] [address] Chloride [Moles/Vol] 99 mmol/L Normal 98-107 [facility] Comment on above: Performed By: #### B NP3, TROPN, BMP3, HEMDF #### [facility] [address] [place] [address] Potassium [Moles/Vol] 4.0 mmol/L Normal 3.5-5.1 [facility] Comment on above: Performed By: #### B NP3, TROPN, BMP3, HEMDF #### [facility] [address] [place] [address] Sodium [Moles/Vol] 138 mmol/L Normal 135-145 [facility] Comment on above: Performed By: #### B NP3, TROPN, BMP3, HEMDF #### [facility] [address] [place] [address] Hemogram w/ Autodiffon 01-31 Abs Baso Cnt 0.0 10*3/uL Normal 0.0-0.2 [facility] Comment on above: Performed By: #### B NP3, TROPN, BMP3, HEMDF #### [facility] [address] [place] [address] Abs Neutrophile Cnt 2.5 10*3/uL Normal 1.8-7.0 [facility] Comment on above: Performed By: #### B NP3, TROPN, BMP3, HEMDF #### [facility] [address] [place] [address] Basophils/100 WBC (Bld) 0.7 % Normal 0.0-2.0 [facility] Comment on above: Performed By: #### B NP3, TROPN, BMP3, HEMDF #### [facility] [address] [place] [address] Eosinophils (Bld) [#/Vol] 0.3 10*3/uL Normal 0.0-0.5 [facility] Comment on above: Performed By: #### B NP3, TROPN, BMP3, HEMDF #### [facility] [address] [place] [address] Eosinophils/100 WBC (Bld) 6.5 % High 1.0-6.0 [facility] Comment on above: Performed By: #### B NP3, TROPN, BMP3, HEMDF #### [facility] [address] [place] [address] Erythrocyte distribution width (RBC) [Ratio] 17.8 % High 11.5-14.5 [facility] Comment on above: Performed By: #### B NP3, TROPN, BMP3, HEMDF #### [facility] [address] [place] [address] Granulocytes/100 WBC (Bld) 63.7 % Normal 40.0-80.0 [facility] Comment on above: Performed By: #### B NP3, TROPN, BMP3, HEMDF #### [facility] [address] [place] [address] Hematocrit (Bld) [Volume fraction] 37.5 % Low 40.0-52.0 [facility] Comment on above: Performed By: #### B NP3, TROPN, BMP3, HEMDF #### [facility] [address] [place] [address] Hemoglobin (Bld) [Mass/Vol] 12.7 g/dL Low 13.0-18.0 [facility] Comment on above: Performed By: #### B NP3, TROPN, BMP3, HEMDF #### [facility] [address] [place] [address] Lymphocytes (Bld) [#/Vol] 0.7 10*3/uL Low 1.0-4.3 [facility] Comment on above: Performed By: #### B NP3, TROPN, BMP3, HEMDF #### [facility] [address] [place] [address] Lymphocytes/100 WBC (Bld) 18.0 % Low 20.0-40.0 [facility] Comment on above: Performed By: #### B NP3, TROPN, BMP3, HEMDF #### [facility] [address] [place] [address] MCH (RBC) [Entitic mass] 31.3 pg Normal 26.0-34.0 [facility] Comment on above: Performed By: #### B NP3, TROPN, BMP3, HEMDF #### [facility] [address] [place] [address] MCHC 33.8 % Normal 32.0-36.0 [facility] Comment on above: Performed By: #### B NP3, TROPN, BMP3, HEMDF #### [facility] [address] [place] [address] MCV (RBC) [Entitic vol] 92.7 fL Normal 80.0-98.0 [facility] Comment on above: Performed By: #### B NP3, TROPN, BMP3, HEMDF #### [facility] [address] [place] [address] Monocytes (Bld) [#/Vol] 0.4 10*3/uL Normal 0.0-0.8 [facility] Comment on above: Performed By: #### B NP3, TROPN, BMP3, HEMDF #### [facility] [address] [place] [address] Monocytes/100 WBC (Bld) 11.1 % High 2.0-10.0 [facility] Comment on above: Performed By: #### B NP3, TROPN, BMP3, HEMDF #### [facility] [address] [place] [address] Platelet mean volume (Bld) [Entitic vol] 8.9 fL Normal 7.4-10.4 [facility] Comment on above: Performed By: #### B NP3, TROPN, BMP3, HEMDF #### [facility] [address] [place] [address] Platelets (Bld) [#/Vol] 182 10*3/uL Normal 140-440 [facility] Comment on above: Performed By: #### B NP3, TROPN, BMP3, HEMDF #### [facility] [address] [place] [address] RBC (Bld) [#/Vol] 4.04 10*6/uL Low 4.40-5.90 [facility] Comment on above: Performed By: #### B NP3, TROPN, BMP3, HEMDF #### [facility] [address] [place] [address] WBC (Bld) [#/Vol] 3.9 10*3/uL Normal 3.6-10.7 [facility] Comment on above: Performed By: #### B NP3, TROPN, BMP3, HEMDF #### [facility] [address] [place] [address] Hepatic Functionon 1 ALP [Catalytic activity/Vol] 85 U/L Normal 38-126 [facility] Comment on above: Performed By: #### B NP3, TROPN, BMP3, HEMDF #### [facility] [address] [place] [address] ALT [Catalytic activity/Vol] 16 U/L Normal 0-49 [facility] Comment on above: Result Comment: The ALT test is performed by an updated assay method. Please note that the reference intervals have been changed and are now sex specific. Performed By: #### B NP3, TROPN, BMP3, HEMDF #### [facility] [address] [place] [address] AST [Catalytic activity/Vol] 29 U/L Normal 15-46 [facility] Comment on above: Performed By: #### B NP3, TROPN, BMP3, HEMDF #### [facility] [address] [place] [address] Bilirubin [Mass/Vol] 2.0 mg/dL High 0.2-1.3 [facility] Comment on above: Performed By: #### B NP3, TROPN, BMP3, HEMDF #### [facility] [address] [place] [address] Bilirubin.indirect [Mass/Vol] 0.0 mg/dL Normal 0.0-0.3 [facility] Comment on above: Performed By: #### B NP3, TROPN, BMP3, HEMDF #### [facility] [address] [place] [address] Protein [Mass/Vol] 6.9 g/dL Normal 6.3-8.2 [facility] Comment on above: Performed By: #### B NP3, TROPN, BMP3, HEMDF #### [facility] [address] [place] [address] Albumin [Mass/Vol] 3.9 g/dL Normal 3.5-5.0 [facility] Comment on above: Performed By: #### B NP3, TROPN, BMP3, HEMDF #### [facility] [address] [place] [address] Lactic Acidon 01-31-2021 Lactate [Moles/Vol] 2.2 mmol/L Critically high 0.7-2.0 [facility] Comment on above: Performed By: #### T ROPN, LACT3 #### [facility] [address] [place] [address] Troponin Ion 01-31-2021 Troponin I.cardiac [Mass/Vol] 0.027 ng/mL Normal 0.000-0.034 [facility] Comment on above: Result Comment: . Performed By: #### B GLU #### [facility] [address] [place] [address] CR Chest Portableon 01-31-20 21 CR Chest Portable Patient Name: MEGAN NASCIMENTO Diagnostic Radiology ACCESSION EXAM DATE/TIME PROCEDURE ORDERING PROVIDER [id number] 01/30/2021 07:12 EDT CR Chest Portable MD MENDOZA KEVIN G CPT code 58715 Reason For Exam (CR Chest Portable) n/v Report Indication: Nausea and vomiting. A frontal view of the chest timed 0658 is compared to the study dated 09/22/2020. [...] Transcribed Date and Time: 01/30/2021 7:21 Normal [facility] CT Abdomen/Pelvis w/o Contra huang 01-30-2021 CT Abdomen/Pelvis w/o Contrast Patient Name: MEGAN NASCIMENTO Computed Tomography ACCESSION EXAM DATE/TIME PROCEDURE ORDERING PROVIDER [id number] 01/30/2021 06:[address] Abdomen/Pelvis (No MD MENDOZA KEVIN G PO, No IV) CPT code 49904 Reason For Exam (CT Abdomen/Pelvis (No PO, [...] Vivienne Radiol 2018;15(2):[id number] Report Dictated on Workstation: [id number] Final Dictating Physician: MD JO KEVIN Signed Date and Time: 01/30/2021 6:58 am Signed by: MD JO KEVIN Transcribed Date and Time: 01/30/2021 6:59 Normal [facility] Comp Metabolic Panelon 01-30 Calcium [Mass/Vol] 10.5 mg/dL High 8.4-10.4 [facility] Comment on above: Performed By: #### B GLU #### [facility] [address] [place] [address] ALP [Catalytic activity/Vol] 137 U/L High 38-126 [facility] Comment on above: Performed By: #### B GLU #### [facility] [address] [place] [address] ALT [Catalytic activity/Vol] 21 U/L Normal 0-49 [facility] Comment on above: Result Comment: The ALT test is performed by an updated assay method. Please note that the reference intervals have been changed and are now sex specific. Performed By: #### B GLU #### [facility] [address] [place] [address] Anion gap [Moles/Vol] 16 mmol/L High 3-13 [facility] Comment on above: Performed By: #### B GLU #### [facility] [address] [place] [address] AST [Catalytic activity/Vol] 46 U/L Normal 15-46 [facility] Comment on above: Performed By: #### B GLU #### [facility] [address] [place] [address] Bilirubin [Mass/Vol] 3.1 mg/dL High 0.2-1.3 [facility] Comment on above: Performed By: #### B GLU #### [facility] [address] [place] [address] CO2 [Moles/Vol] 26 mmol/L Normal 22-30 [facility] Comment on above: Performed By: #### B GLU #### [facility] [address] [place] [address] Creatinine [Mass/Vol] 2.52 mg/dL High 0.52-1.25 [facility] Comment on above: Performed By: #### B GLU #### [facility] [address] [place] [address] GFR/1.73 sq M.predicted among blacks MDRD (S/P/Bld) [Vol rate/Area] 26.5 mL/min/{1.73_m2} Abnormal >60 [facility] Comment on above: Performed By: #### B GLU #### [facility] [address] [place] [address] GFR/1.73 sq M.predicted among non-blacks MDRD (S/P/Bld) [Vol rate/Area] 22.9 mL/min/{1.73_m2} Abnormal >60 [facility] Comment on above: Result Comment: KDIG [...] secretion. Performed By: #### B GLU #### [facility] [address] [place] [address] Glucose [Mass/Vol] 99 mg/dL Normal 70-100 [facility] Comment on above: Performed By: #### B GLU #### [facility] [address] [place] [address] Protein [Mass/Vol] 8.9 g/dL High 6.3-8.2 [facility] Comment on above: Performed By: #### B GLU #### [facility] [address] [place] [address] Urea nitrogen [Mass/Vol] 50 mg/dL High 7-20 [facility] Comment on above: Performed By: #### B GLU #### [facility] [address] [place] [address] Albumin [Mass/Vol] 4.9 g/dL Normal 3.5-5.0 [facility] Comment on above: Performed By: #### B GLU #### [facility] [address] [place] [address] Chloride [Moles/Vol] 96 mmol/L Low 98-107 [facility] Comment on above: Performed By: #### B GLU #### [facility] [address] [place] [address] Potassium [Moles/Vol] 4.6 mmol/L Normal 3.5-5.1 [facility] Comment on above: Performed By: #### B GLU #### [facility] [address] [place] [address] Sodium [Moles/Vol] 138 mmol/L Normal 135-145 [facility] Comment on above: Performed By: #### B GLU #### [facility] [address] [place] [address] ED Provider Noteon 1 ED Provider Note Emergency Department Encounter [facility] [place] [facility] Patient Identification Pt Name: Megan Nascimento Birthdate: 1940 Age: 80 y.o. Sex: male Date of evaluation: 01/30/2021 Provider: Vaibhav Mendoza MD PCP: RIGOBERTO DURAND MD Chief [...] Gatherings with Friends and Family: ? Attends [employer]: ? Active Member of Clubs or Organizations: ? Attends Club or Organization Meetings: (more content not included)... Normal [facility] Hemogram w/ Autodiffon 01-30 Abs Baso Cnt 0.1 10*3/uL Normal 0.0-0.2 [facility] Comment on above: Performed By: #### B GLU #### [facility] [address] [place] [address] Abs Neutrophile Cnt 3.6 10*3/uL Normal 1.8-7.0 [facility] Comment on above: Performed By: #### B GLU #### [facility] [address] [place] [address] Basophils/100 WBC (Bld) 1.4 % Normal 0.0-2.0 [facility] Comment on above: Performed By: #### B GLU #### [facility] [address] [place] [address] Eosinophils (Bld) [#/Vol] 0.2 10*3/uL Normal 0.0-0.5 [facility] Comment on above: Performed By: #### B GLU #### [facility] [address] [place] [address] Eosinophils/100 WBC (Bld) 3.7 % Normal 1.0-6.0 [facility] Comment on above: Performed By: #### B GLU #### [facility] [address] [place] [address] Erythrocyte distribution width (RBC) [Ratio] 17.8 % High 11.5-14.5 [facility] Comment on above: Performed By: #### B GLU #### [facility] [address] [place] [address] Granulocytes/100 WBC (Bld) 65.9 % Normal 40.0-80.0 [facility] Comment on above: Performed By: #### B GLU #### [facility] [address] [place] [address] Hematocrit (Bld) [Volume fraction] 43.9 % Normal 40.0-52.0 [facility] Comment on above: Performed By: #### B GLU #### [facility] [address] [place] [address] Hemoglobin (Bld) [Mass/Vol] 14.6 g/dL Normal 13.0-18.0 [facility] Comment on above: Performed By: #### B GLU #### [facility] [address] [place] [address] Lymphocytes (Bld) [#/Vol] 1.0 10*3/uL Normal 1.0-4.3 [facility] Comment on above: Performed By: #### B GLU #### [facility] [address] [place] [address] Lymphocytes/100 WBC (Bld) 19.2 % Low 20.0-40.0 [facility] Comment on above: Performed By: #### B GLU #### [facility] [address] [place] [address] MCH (RBC) [Entitic mass] 30.6 pg Normal 26.0-34.0 [facility] Comment on above: Performed By: #### B GLU #### [facility] [address] [place] [address] MCHC 33.2 % Normal 32.0-36.0 [facility] Comment on above: Performed By: #### B GLU #### [facility] [address] [place] [address] MCV (RBC) [Entitic vol] 92.2 fL Normal 80.0-98.0 [facility] Comment on above: Performed By: #### B GLU #### [facility] [address] [place] [address] Monocytes (Bld) [#/Vol] 0.5 10*3/uL Normal 0.0-0.8 [facility] Comment on above: Performed By: #### B GLU #### [facility] [address] [place] [address] Monocytes/100 WBC (Bld) 9.8 % Normal 2.0-10.0 [facility] Comment on above: Performed By: #### B GLU #### [facility] [address] [place] [address] Platelet mean volume (Bld) [Entitic vol] 9.1 fL Normal 7.4-10.4 [facility] Comment on above: Performed By: #### B GLU #### [facility] [address] [place] [address] Platelets (Bld) [#/Vol] 226 10*3/uL Normal 140-440 [facility] Comment on above: Performed By: #### B GLU #### [facility] [address] [place] [address] RBC (Bld) [#/Vol] 4.77 10*6/uL Normal 4.40-5.90 [facility] Comment on above: Performed By: #### B GLU #### [facility] [address] [place] [address] WBC (Bld) [#/Vol] 5.4 10*3/uL Normal 3.6-10.7 [facility] Comment on above: Performed By: #### B GLU #### [facility] [address] [place] [address] Lactic Acidon 01-30-2021 Lactate [Moles/Vol] 3.3 mmol/L Critically high 0.7-2.0 [facility] Comment on above: Performed By: #### B GLU #### [facility] [address] [place] [address] Lactic Acid, Sepsison 2020 Lactate [Moles/Vol] 2.4 mmol/L Critically high 0.7-2.0 [facility] Comment on above: Performed By: #### L IPD2, BMP3, MG3 #### [facility] [address] [place] [address] Lactate [Moles/Vol] 2.8 mmol/L Critically high 0.7-2.0 [facility] Comment on above: Performed By: #### B GLU #### [facility] [address] [place] [address] Lipaseon 01-30-2021 Lipase [Catalytic activity/Vol] 179 U/L Normal 23-300 [facility] Comment on above: Performed By: #### B GLU #### [facility] [address] [place] [address] Troponin Ion 01-30-2021 Troponin I.cardiac [Mass/Vol] 0.039 ng/mL High 0.000-0.034 [facility] Comment on above: Result Comment: . Performed By: #### B GLU #### [facility] [address] [place] [address] US Abdomen Limitedon 021 US Abdomen Limited Patient Name: MEGAN NASCIMENTO Ultrasound ACCESSION EXAM DATE/TIME PROCEDURE ORDERING PROVIDER [id number] 01/30/2021 07:25 EDT US Abdomen Limited MD MENDOZA KEVIN G CPT code 83778 Reason For Exam (US Abdomen Limited) right [...] Transcribed Date and Time: 01/30/2021 7:38 Normal [facility] Basic Metabolic Panelon 03-0 Calcium [Mass/Vol] 9.5 mg/dL Normal 8.4-10.4 [facility] Comment on above: Performed By: #### L IPD2, BMP3, MG3 #### [facility] [address] [place] [address] Anion gap [Moles/Vol] 11 mmol/L Normal 3-13 [facility] Comment on above: Performed By: #### L IPD2, BMP3, MG3 #### [facility] [address] [place] [address] CO2 [Moles/Vol] 35 mmol/L High 22-30 [facility] Comment on above: Performed By: #### L IPD2, BMP3, MG3 #### [facility] [address] [place] [address] Creatinine [Mass/Vol] 2.14 mg/dL High 0.52-1.25 [facility] Comment on above: Performed By: #### L IPD2, BMP3, MG3 #### [facility] [facility] [address] [place] [address] GFR/1.73 sq M.predicted among blacks MDRD (S/P/Bld) [Vol rate/Area] 32.4 mL/min/{1.73_m2} Abnormal >60 [facility] Comment on above: Performed By: #### L IPD2, BMP3, MG3 #### [facility] [address] [place] [address] GFR/1.73 sq M.predicted among non-blacks MDRD (S/P/Bld) [Vol rate/Area] 27.9 mL/min/{1.73_m2} Abnormal >60 [facility] Comment on above: Result Comment: KDIG [...] By: #### L IPD2, BMP3, MG3 #### [facility] [address] [place] [address] Glucose [Mass/Vol] 115 mg/dL High 70-100 [facility] Comment on above: Performed By: #### L IPD2, BMP3, MG3 #### [facility] [address] [place] [address] Urea nitrogen [Mass/Vol] 41 mg/dL High 7-20 [facility] Comment on above: Performed By: #### L IPD2, BMP3, MG3 #### [facility] [address] [place] [address] Chloride [Moles/Vol] 94 mmol/L Low 98-107 [facility] Comment on above: Performed By: #### L IPD2, BMP3, MG3 #### [facility] [address] [place] [address] Potassium [Moles/Vol] 4.3 mmol/L Normal 3.5-5.1 [facility] Comment on above: Performed By: #### L IPD2, BMP3, MG3 #### [facility] [address] [place] [address] Sodium [Moles/Vol] 139 mmol/L Normal 135-145 [facility] Comment on above: Performed By: #### L IPD2, BMP3, MG3 #### [facility] [address] [place] [address] Anion gap [Moles/Vol] 11 mmol/L 3 - 13 mmol/L [facility] Work Phone: [phone] Calcium [Mass/Vol] 9.5 mg/dL 8.4 - 10. 4 mg/dL [facility] Work Phone: 1 Chloride [Moles/Vol] 94 mmol/L Low 98 - 10 7 mmol/L [facility] Work Phone: 1 CO2 [Moles/Vol] 35 mmol/L High 22 - 30 mmol/L [facility] Work Phone: 1 Creatinine [Mass/Vol] 2.14 mg/dL High 0.52 - 1.25 mg/dL [facility] Work Phone: [phone] IF NonAfrican Indian 27.9 mL/min Abnormal >60 [facility] Work Phone: [phone] Comment on above: KDIGO guidelines pro vide [...] (S/P/Bld) [Vol rate/Area] 32.4 mL/min/{1.73_m2} Abnormal >60 [facility] Work Phone: [phone] Glucose [Mass/Vol] 115 mg/dL High 70 - 100 mg/dL [facility] Work Phone: [phone] Interpretation and review of laboratory results Abnormal [facility] Work Phone: Potassium [Moles/Vol] 4.3 mmol/L 3.5 - 5.1 mmol/L [facility] Work Phone: 1 Sodium [Moles/Vol] 139 mmol/L 135 - 145 mmol/L [facility] Work Phone: 1 Urea nitrogen [Mass/Vol] 41 mg/dL High 7 - 20 mg/d L [facility] Work Phone: [phone] CBC Auto Differentialon 030 Absolute Baso # 0.1 10*3/uL 0.0 - 0.2 10*3/uL [facility] Work Phone: 1 Absolute Neut # 4.2 10*3/uL 1.8 - 7.0 10*3/uL [facility] Work Phone: 1 Basophils/100 WBC (Bld) 0.8 % 0.0 - 2.0 % [facility] Work Phone: 1 Eosinophils (Bld) [#/Vol] 0.3 10*3/uL 0.0 - 0.5 10*3/uL [facility] Work Phone: 1 Eosinophils/100 WBC (Bld) 5.5 % 1.0 - 6.0 % [facility] Work Phone: 1 Erythrocyte distribution width (RBC) [Ratio] 33.6 % High 11.5 - 14.5 % [facility] Work Phone: Granulocytes/100 WBC (Bld) 67.3 % 40.0 - 80.0 % [facility] Work Phone: 1 Hematocrit (Bld) [Volume fraction] 36.4 % Low 40.0 - 52.0 % [facility] Work Phone: 1 Hemoglobin (Bld) [Mass/Vol] 11.6 g/dL Low 13.0 - 18.0 g/dL [facility] Work Phone: 1 Interpretation and review of laboratory results Abnormal [facility] Work Phone: 1 Lymphocytes (Bld) [#/Vol] 1.2 10*3/uL 1.0 - 4.3 10*3/uL [facility] Work Phone: [phone] Lymphocytes/100 WBC (Bld) 19.9 % Low 20.0 - 40.0 % [facility] Work Phone: 1() MCH (RBC) [Entitic mass] 26.7 pg 26. 0 - 34.0 pg [facility] Work Phone: 1() MCHC (RBC) [Mass/Vol] 31.9 % Low 32.0 - 36.0 % [facility] Work Phone: 1() MCV (RBC) [Entitic vol] 83.5 fL 80.0 - 98.0 fL [facility] Work Phone: 1() Monocytes (Bld) [#/Vol] 0.4 10*3/uL 0.0 - 0.8 10*3/uL [employer] Work Phone: 1() Monocytes/100 WBC (Bld) 6.5 % 2.0 - 10.0 % [employer] Work Phone: 1() Platelet mean volume (Bld) [Entitic vol] 8.6 fL 7.4 - 10.4 fL [facility] Work Phone: 1() Platelets (Bld) [#/Vol] 261 10*3/uL 140 - 440 10*3/uL [facility] Work Phone: 1() RBC (Bld) [#/Vol] 4.36 10*6/uL Low 4.40 - 5.9 0 10*6/uL [employer] Work Phone: 1() WBC (Bld) [#/Vol] 6.2 10*3/uL 3.6 - 10.7 10*3/uL [employer] Work Phone: 1() Test Performed by [facility] [employer] [facility], [address], [place], [place] [address] [employer] Work Phone: 1() Hemogram w/ Autodiffon 09-26 Abs Baso Cnt 0.1 10*3/uL Normal 0.0-0.2 [facility] Comment on above: Performed By: #### L IPD2, BMP3, MG3 #### [facility] [address] [place] [address] Abs Neutrophile Cnt 4.2 10*3/uL Normal 1.8-7.0 [facility] Comment on above: Performed By: #### L IPD2, BMP3, MG3 #### [facility] [address] [place] [address] Basophils/100 WBC (Bld) 0.8 % Normal 0.0-2.0 S [facility] Comment on above: Performed By: #### L IPD2, BMP3, MG3 #### [facility] [address] [place] [address] Eosinophils (Bld) [#/Vol] 0.3 10*3/uL Normal 0.0-0.5 [facility] Comment on above: Performed By: #### L IPD2, BMP3, MG3 #### [facility] [address] [place] [address] Eosinophils/100 WBC (Bld) 5.5 % Normal 1.0-6.0 [facility] Comment on above: Performed By: #### L IPD2, BMP3, MG3 #### [facility] [address] [place] [address] Erythrocyte distribution width (RBC) [Ratio] 33.6 % High 11.5-14.5 [facility] Comment on above: Performed By: #### L IPD2, BMP3, MG3 #### [facility] [address] [place] [address] Granulocytes/100 WBC (Bld) 67.3 % Normal 40.0-80.0 [facility] Comment on above: Performed By: #### L IPD2, BMP3, MG3 #### [facility] [address] [place] [address] Hematocrit (Bld) [Volume fraction] 36.4 % Low 40.0-52.0 [facility] Comment on above: Performed By: #### L IPD2, BMP3, MG3 #### [facility] [address] [place] [address] Hemoglobin (Bld) [Mass/Vol] 11.6 g/dL Low 13.0-18.0 [facility] Comment on above: Performed By: #### L IPD2, BMP3, MG3 #### [facility] [address] [place] [address] Lymphocytes (Bld) [#/Vol] 1.2 10*3/uL Normal 1.0-4.3 [facility] Comment on above: Performed By: #### L IPD2, BMP3, MG3 #### [facility] [address] [place] [address] Lymphocytes/100 WBC (Bld) 19.9 % Low 20.0-40.0 [facility] Comment on above: Performed By: #### L IPD2, BMP3, MG3 #### [facility] [address] [place] [address] MCH (RBC) [Entitic mass] 26.7 pg Normal 26.0-34.0 [facility] Comment on above: Performed By: #### L IPD2, BMP3, MG3 #### [facility] [address] [place] [address] MCHC 31.9 % Low 32.0-36.0 [facility] Comment on above: Performed By: #### L IPD2, BMP3, MG3 #### [facility] [address] [place] [address] MCV (RBC) [Entitic vol] 83.5 fL Normal 80.0-98.0 S [facility] Comment on above: Performed By: #### L IPD2, BMP3, MG3 #### [facility] [address] [place] [address] Monocytes (Bld) [#/Vol] 0.4 10*3/uL Normal 0.0-0.8 [facility] Comment on above: Performed By: #### L IPD2, BMP3, MG3 #### [facility] [address] [place] [address] Monocytes/100 WBC (Bld) 6.5 % Normal 2.0-10.0 [facility] Comment on above: Performed By: #### L IPD2, BMP3, MG3 #### [facility] [address] [place] [address] Platelet mean volume (Bld) [Entitic vol] 8.6 fL Normal 7.4-10.4 [facility] Comment on above: Performed By: #### L IPD2, BMP3, MG3 #### [facility] [address] [place] [address] Platelets (Bld) [#/Vol] 261 10*3/uL Normal 140-440 [facility] Comment on above: Performed By: #### L IPD2, BMP3, MG3 #### [facility] [address] [place] [address] RBC (Bld) [#/Vol] 4.36 10*6/uL Low 4.40-5.90 [facility] Comment on above: Performed By: #### L IPD2, BMP3, MG3 #### [facility] [address] [place] [address] WBC (Bld) [#/Vol] 6.2 10*3/uL Normal 3.6-10.7 [facility] Comment on above: Performed By: #### L IPD2, BMP3, MG3 #### [facility] [address] [place] [address] Magnesiumon 09-26-2020 Magnesium [Mass/Vol] 1.9 mg/dL Normal 1.6-2.3 [facility] Comment on above: Performed By: #### L IPD2, BMP3, MG3 #### [facility] [address] [place] [address] Magnesium [Mass/Vol] 1.9 mg/dL 1.6 - 2 .3 mg/dL [facility] Work Phone: Metabolic Panelon 09-26-2020 Sodium [Moles/Vol] Slight [facility] Work Phone: Otheron 09-26-2020 Test Performed by [facility], [address] [place] [address] [facility] Work Phone: RBC MORPHOLOGYon 09-26-2020 Anisocytosis Ql (Bld) Marked [facility] Work Phone: RBC morphology finding Nom (Bld) ABNORMAL [facility] Work Phone: Sodium [Moles/Vol] Moderate [facility] Work Phone: Test Performed by [facility], [address] [place] [address] [facility] Work Phone: RBC Morphologyon 09-26-2020 Anisocytosis Ql (Bld) Marked Normal [facility] Comment on above: Performed By: #### L IPD2, BMP3, MG3 #### [facility] [address] [place] [address] Elliptocytes Slight Normal [facility] Comment on above: Performed By: #### L IPD2, BMP3, MG3 #### [facility] [address] [place] [address] Hypochromia Slight Normal [facility] Comment on above: Performed By: #### L IPD2, BMP3, MG3 #### [facility] [address] [place] [address] Ovalocytes Slight Normal [facility] Comment on above: Performed By: #### L IPD2, BMP3, MG3 #### [facility] [address] [place] [address] Poikilocytosis Moderate Normal [facility] Comment on above: Performed By: #### L IPD2, BMP3, MG3 #### [facility] [address] [place] [address] Polychromasia Slight Normal [facility] Comment on above: Performed By: #### L IPD2, BMP3, MG3 #### [facility] [address] [place] [address] RBC morphology finding Nom (Bld) ABNORMAL Normal [facility] Comment on above: Performed By: #### L IPD2, BMP3, MG3 #### [facility] [address] [place] [address] Schistocytes Slight Normal [facility] Comment on above: Performed By: #### L IPD2, BMP3, MG3 #### [facility] [address] [place] [address] Target Cells Slight Normal [facility] Comment on above: Performed By: #### L IPD2, BMP3, MG3 #### [facility] [address] [place] [address] Basic Metabolic Panelon 03-0 8-2021 Calcium [Mass/Vol] 9.0 mg/dL Normal 8.4-10.4 [facility] Comment on above: Performed By: #### L IPD2, BMP3, MG3 #### [facility] [address] [place] [address] Anion gap [Moles/Vol] 7 mmol/L Normal 3-13 [facility] Comment on above: Performed By: #### L IPD2, BMP3, MG3 #### [facility] [address] [place] [address] CO2 [Moles/Vol] 34 mmol/L High 22-30 [facility] Comment on above: Performed By: #### L IPD2, BMP3, MG3 #### [facility] [address] [place] [address] Creatinine [Mass/Vol] 2.12 mg/dL High 0.52-1.25 [facility] Comment on above: Performed By: #### L IPD2, BMP3, MG3 #### [facility] [address] [place] [address] GFR/1.73 sq M.predicted among blacks MDRD (S/P/Bld) [Vol rate/Area] 32.8 mL/min/{1.73_m2} Abnormal >60 [facility] Comment on above: Performed By: #### L IPD2, BMP3, MG3 #### [facility] [address] [place] [address] GFR/1.73 sq M.predicted among non-blacks MDRD (S/P/Bld) [Vol rate/Area] 28.3 mL/min/{1.73_m2} Abnormal >60 [facility] Comment on above: Result Comment: KDIG [...] By: #### L IPD2, BMP3, MG3 #### [facility] [address] [place] [address] Glucose [Mass/Vol] 126 mg/dL High 70-100 [facility] Comment on above: Performed By: #### L IPD2, BMP3, MG3 #### [facility] [address] [place] [address] Urea nitrogen [Mass/Vol] 38 mg/dL High 7-20 [facility] Comment on above: Performed By: #### L IPD2, BMP3, MG3 #### [facility] [address] [place] [address] Chloride [Moles/Vol] 95 mmol/L Low 98-107 [facility] Comment on above: Performed By: #### L IPD2, BMP3, MG3 #### [facility] [address] [place] [address] Potassium [Moles/Vol] 3.2 mmol/L Low 3.5-5.1 [facility] Comment on above: Performed By: #### L IPD2, BMP3, MG3 #### [facility] [address] [place] [address] Sodium [Moles/Vol] 136 mmol/L Normal 135-145 [facility] Comment on above: Performed By: #### L IPD2, BMP3, MG3 #### [facility] [address] [place] [address] Anion gap [Moles/Vol] 7 mmol/L 3 - 13 mmol/L [facility] Work Phone: Calcium [Mass/Vol] 9.0 mg/dL 8.4 - 10. 4 mg/dL [facility] Work Phone: Chloride [Moles/Vol] 95 mmol/L Low 98 - 10 7 mmol/L [facility] Work Phone: [phone] CO2 [Moles/Vol] 34 mmol/L High 22 - 30 mmol/L [facility] Work Phone: [phone] Creatinine [Mass/Vol] 2.12 mg/dL High 0.52 - 1.25 mg/dL [facility] Work Phone: [phone] EGFR IF NonAfrican Indian 28.3 mL/min Abnormal >60 [facility] Work Phone: [phone] Comment on above: KDIGO guidelines pro vide [...] (S/P/Bld) [Vol rate/Area] 32.8 mL/min/{1.73_m2} Abnormal >60 [facility] Work Phone: [phone] Glucose [Mass/Vol] 126 mg/dL High 70 - 100 mg/dL [facility] Work Phone: [phone] Interpretation and review of laboratory results Abnormal [facility] Work Phone: [phone] Potassium [Moles/Vol] 3.2 mmol/L Low 3.5 - 5.1 mmol/L [facility] Work Phone: [phone] Sodium [Moles/Vol] 136 mmol/L 135 - 145 mmol/L [facility] Work Phone: [phone] Urea nitrogen [Mass/Vol] 38 mg/dL High 7 - 20 mg/d L [facility] Work Phone: [phone] CBC Auto Differentialon 03-0 Absolute Baso # 0.1 10*3/uL 0.0 - 0.2 10*3/uL [facility] Work Phone: 1 Absolute Neut # 3.6 10*3/uL 1.8 - 7.0 10*3/uL [facility] Work Phone: [phone] Basophils/100 WBC (Bld) 2.4 % High 0.0 - 2.0 % [facility] Work Phone: 1 Eosinophils (Bld) [#/Vol] 0.3 10*3/uL 0.0 - 0.5 10*3/uL [facility] Work Phone: 1 Eosinophils/100 WBC (Bld) 4.9 % 1.0 - 6.0 % [facility] Work Phone: 1 Erythrocyte distribution width (RBC) [Ratio] 33.5 % High 11.5 - 14.5 % [facility] Work Phone: 1 Granulocytes/100 WBC (Bld) 67.9 % 40.0 - 80.0 % [facility] Work Phone: Hematocrit (Bld) [Volume fraction] 35.0 % Low 40.0 - 52.0 % [facility] Work Phone: Hemoglobin (Bld) [Mass/Vol] 11.1 g/dL Low 13.0 - 18.0 g/dL [facility] Work Phone: 1 Interpretation and review of laboratory results Abnormal [employer] Work Phone: Lymphocytes (Bld) [#/Vol] 1.0 10*3/uL 1.0 - 4.3 10*3/uL [facility] Work Phone: 1 22 Lymphocytes/100 WBC (Bld) 18.0 % Low 20.0 - 40.0 % [facility] Work Phone: MCH (RBC) [Entitic mass] 26.7 pg 26. 0 - 34.0 pg [facility] Work Phone: 1 MCHC (RBC) [Mass/Vol] 31.7 % Low 32.0 - 36.0 % [facility] Work Phone: MCV (RBC) [Entitic vol] 84.2 fL 80.0 - 98.0 fL [facility] Work Phone: [phone] Monocytes (Bld) [#/Vol] 0.4 10*3/uL 0.0 - 0.8 10*3/uL [facility] Work Phone: [phone] Monocytes/100 WBC (Bld) 6.8 % 2.0 - 10.0 % [facility] Work Phone: [phone] Platelet mean volume (Bld) [Entitic vol] 8.9 fL 7.4 - 10.4 fL [facility] Work Phone: 1 22 Platelets (Bld) [#/Vol] 223 10*3/uL 140 - 440 10*3/uL [facility] Work Phone: 1 22 RBC (Bld) [#/Vol] 4.16 10*6/uL Low 4.40 - 5.9 0 10*6/uL [facility] Work Phone: [phone] WBC (Bld) [#/Vol] 5.3 10*3/uL 3.6 - 10.7 10*3/uL [facility] Work Phone: [phone] Test Performed by [facility], [address] [place], [place] [address] [facility] Work Phone: Hemogram w/ Autodiffon 09-25 Abs Baso Cnt 0.1 10*3/uL Normal 0.0-0.[address] [facility] Comment on above: Performed By: #### L IPD2, BMP3, MG3 #### [facility] [address] [place] [address] Abs Neutrophile Cnt 3.6 10*3/uL Normal 1.8-7.0 [facility] Comment on above: Performed By: #### L IPD2, BMP3, MG3 #### [facility] [address] [place] [place] [address] Basophils/100 WBC (Bld) 2.4 % High 0.0-2.0 S [facility] Comment on above: Performed By: #### L IPD2, BMP3, MG3 #### [facility] [address] [place] [address] Eosinophils (Bld) [#/Vol] 0.3 10*3/uL Normal 0.0-0.5 [facility] Comment on above: Performed By: #### L IPD2, BMP3, MG3 #### [facility] [address] [place] [address] Eosinophils/100 WBC (Bld) 4.9 % Normal 1.0-6.0 [facility] Comment on above: Performed By: #### L IPD2, BMP3, MG3 #### [facility] [address] [place] [address] Erythrocyte distribution width (RBC) [Ratio] 33.5 % High 11.5-14.5 [facility] Comment on above: Performed By: #### L IPD2, BMP3, MG3 #### [facility] [address] [place] [address] Granulocytes/100 WBC (Bld) 67.9 % Normal 40.0-80.0 [facility] Comment on above: Performed By: #### L IPD2, BMP3, MG3 #### [facility] [address] [place] [address] Hematocrit (Bld) [Volume fraction] 35.0 % Low 40.0-52.0 [facility] Comment on above: Performed By: #### L IPD2, BMP3, MG3 #### [facility] [address] [place] [address] Hemoglobin (Bld) [Mass/Vol] 11.1 g/dL Low 13.0-18.0 [facility] Comment on above: Performed By: #### L IPD2, BMP3, MG3 #### [facility] [address] [place] [address] Lymphocytes (Bld) [#/Vol] 1.0 10*3/uL Normal 1.0-4.3 [facility] Comment on above: Performed By: #### L IPD2, BMP3, MG3 #### [facility] [address] [place] [address] Lymphocytes/100 WBC (Bld) 18.0 % Low 20.0-40.0 [facility] Comment on above: Performed By: #### L IPD2, BMP3, MG3 #### [facility] [address] [place] [address] MCH (RBC) [Entitic mass] 26.7 pg Normal 26.0-34.0 [facility] Comment on above: Performed By: #### L IPD2, BMP3, MG3 #### [facility] [address] [place] [address] MCHC 31.7 % Low 32.0-36.0 [facility] Comment on above: Performed By: #### L IPD2, BMP3, MG3 #### [facility] [address] [place] [address] MCV (RBC) [Entitic vol] 84.2 fL Normal 80.0-98.0 [facility] Comment on above: Performed By: #### L IPD2, BMP3, MG3 #### [facility] [address] [place] [address] Monocytes (Bld) [#/Vol] 0.4 10*3/uL Normal 0.0-0.8 [facility] Comment on above: Performed By: #### L IPD2, BMP3, MG3 #### [facility] [address] [place] [address] Monocytes/100 WBC (Bld) 6.8 % Normal 2.0-10.0 [facility] Comment on above: Performed By: #### L IPD2, BMP3, MG3 #### [facility] [address] [place] [address] Platelet mean volume (Bld) [Entitic vol] 8.9 fL Normal 7.4-10.4 [facility] Comment on above: Performed By: #### L IPD2, BMP3, MG3 #### [facility] [address] [place] [address] Platelets (Bld) [#/Vol] 223 10*3/uL Normal 140-440 [facility] Comment on above: Performed By: #### L IPD2, BMP3, MG3 #### [facility] [address] [place] [address] RBC (Bld) [#/Vol] 4.16 10*6/uL Low 4.40-5.90 [facility] Comment on above: Performed By: #### L IPD2, BMP3, MG3 #### [facility] [address] [place] [address] WBC (Bld) [#/Vol] 5.3 10*3/uL Normal 3.6-10.7 [facility] Comment on above: Performed By: #### L IPD2, BMP3, MG3 #### [facility] [address] [place] [address] Magnesiumon 09-25-2020 Magnesium [Mass/Vol] 1.7 mg/dL Normal 1.6-2.3 [facility] Comment on above: Performed By: #### L IPD2, BMP3, MG3 #### [facility] [address] [place] [address] Magnesium [Mass/Vol] 1.7 mg/dL 1.6 - 2 .3 mg/dL [facility] Work Phone: Metabolic Panelon 09-25-2020 Sodium [Moles/Vol] Slight [facility] Work Phone: Sodium [Moles/Vol] Moderate [facility] Work Phone: Otheron 09-25-2020 Test Performed by [facility], [facility] [address] Work Phone: RBC MORPHOLOGYon 09-25-2020 Anisocytosis Ql (Bld) Marked [facility] Work Phone: RBC morphology finding Nom (Bld) ABNORMAL [facility] Work Phone: Test Performed by [facility], [facility] [address] [place], [place] [id number] [place], [place] [address]A Work Phone: RBC Morphologyon 09-25-2020 Anisocytosis Ql (Bld) Marked Normal [facility] Comment on above: Performed By: #### L IPD2, BMP3, MG3 #### [facility] [address] [place] [address] Elliptocytes Slight Normal [facility] Comment on above: Performed By: #### L IPD2, BMP3, MG3 #### [facility] [address] [place] [address] Hypochromia Moderate Normal [facility] Comment on above: Performed By: #### L IPD2, BMP3, MG3 #### [facility] [address] [place] [address] Microcytosis Slight Normal [facility] Comment on above: Performed By: #### L IPD2, BMP3, MG3 #### [facility] [address] [place] [address] Ovalocytes Slight Normal [facility] Comment on above: Performed By: #### L IPD2, BMP3, MG3 #### [facility] [address] [place] [address] Poikilocytosis Moderate [facility] Comment on above: Performed By: #### L IPD2, BMP3, MG3 #### [facility] [address] [place] [address] Polychromasia Slight Normal [facility] Comment on above: Performed By: #### L IPD2, BMP3, MG3 #### [facility] [address] [place] [address] RBC morphology finding Nom (Bld) ABNORMAL Normal [facility] Comment on above: Performed By: #### L IPD2, BMP3, MG3 #### [facility] [address] [place] [address] Target Cells Slight Normal [facility] Comment on above: Performed By: #### L IPD2, BMP3, MG3 #### [facility] [address] [place] [address] Tear Drop Forms Slight Normal [facility] Comment on above: Performed By: #### L IPD2, BMP3, MG3 #### [facility] [address] [place] [address] Basic Metabolic Panelon 03-0 Anion gap [Moles/Vol] 8 mmol/L Normal 3-13 [facility] Comment on above: Performed By: #### B GLU #### [facility] [address] [place] [address] Calcium [Mass/Vol] 8.9 mg/dL Normal 8.4-10.4 [facility] Comment on above: Performed By: #### B GLU #### [facility] [address] [place] [address] CO2 [Moles/Vol] 34 mmol/L High 22-30 [facility] Comment on above: Performed By: #### B GLU #### [facility] [address] [place] [address] Glucose [Mass/Vol] 111 mg/dL High 70-100 [facility] Comment on above: Performed By: #### B GLU #### [facility] [address] [place] [address] Urea nitrogen [Mass/Vol] 42 mg/dL High 7-20 [facility] Comment on above: Performed By: #### B GLU #### [facility] [address] [place] [address] Creatinine [Mass/Vol] 2.23 mg/dL High 0.52-1.25 [facility] Comment on above: Performed By: #### B GLU #### [facility] [address] [place] [address] GFR/1.73 sq M.predicted among blacks MDRD (S/P/Bld) [Vol rate/Area] 30.8 mL/min/{1.73_m2} Abnormal >60 [facility] Comment on above: Performed By: #### B GLU #### [facility] [address] [place] [address] GFR/1.73 sq M.predicted among non-blacks MDRD (S/P/Bld) [Vol rate/Area] 26.6 mL/min/{1.73_m2} Abnormal >60 [facility] Comment on above: Result Comment: KDIG [...] secretion. Performed By: #### B GLU #### [facility] [address] [place] [address] Chloride [Moles/Vol] 94 mmol/L Low 98-107 [facility] Comment on above: Performed By: #### B GLU #### [facility] [address] [place] [address] Potassium [Moles/Vol] 3.2 mmol/L Low 3.5-5.1 [facility] Comment on above: Performed By: #### B GLU #### [facility] [address] [place] [address] Sodium [Moles/Vol] 136 mmol/L Normal 135-145 [facility] Comment on above: Performed By: #### B GLU #### [facility] [address] [place] [address] Anion gap [Moles/Vol] 8 mmol/L 3 - 13 mmol/L [facility] Work Phone: Calcium [Mass/Vol] 8.9 mg/dL 8.4 - 10. 4 mg/dL [facility] Work Phone: Chloride [Moles/Vol] 94 mmol/L Low 98 - 10 7 mmol/L [facility] Work Phone: CO2 [Moles/Vol] 34 mmol/L High 22 - 30 mmol/L [facility] Work Phone: Creatinine [Mass/Vol] 2.23 mg/dL High 0.52 - 1.25 mg/dL [facility] Work Phone: EGFR IF NonAfrican Indian 26.6 mL/min Abnormal >60 [facility] Work Phone: Comment on above: KDIGO guidelines [...] (S/P/Bld) [Vol rate/Area] 30.8 mL/min/{1.73_m2} Abnormal >60 [employer] Work Phone: [phone] Glucose [Mass/Vol] 111 mg/dL High 70 - 100 mg/dL [employer] Work Phone: [phone] Interpretation and review of laboratory results Abnormal [employer] Work Phone: [phone] Potassium [Moles/Vol] 3.2 mmol/L Low 3.5 - 5.1 mmol/L [employer] Work Phone: [phone] Sodium [Moles/Vol] 136 mmol/L 135 - 145 mmol/L [employer] Work Phone: [phone] Urea nitrogen [Mass/Vol] 42 mg/dL High 7 - 20 mg/d L [employer] Work Phone: [phone] Brain Natriuretic Peptideon 09-24-2020 Interpretation and review of laboratory results Abnormal [employer] Work Phone: [phone] Natriuretic peptide B (Bld) [Mass/Vol] 69806 pg/mL High 0 - 450 pg/mL [employer] Work Phone: [phone] Test Performed by [employer], [address] [place] [address] [employer] Work Phone: [phone] CBC Auto Differentialon 03-0 Absolute Baso # 0.2 10*3/uL 0.0 - 0.2 10*3/uL [employer] Work Phone: [phone] Absolute Neut # 3.9 10*3/uL 1.8 - 7.0 10*3/uL [employer] Work Phone: [phone] Basophils/100 WBC (Bld) 3.1 % High 0.0 - 2.0 % [employer] Work Phone: Eosinophils (Bld) [#/Vol] 0.3 10*3/uL 0.0 - 0.5 10*3/uL [employer] Work Phone: Eosinophils/100 WBC (Bld) 4.9 % 1.0 - 6.0 % [employer] Work Phone: Erythrocyte distribution width (RBC) [Ratio] 33.7 % High 11.5 - 14.5 % [employer] Work Phone: Granulocytes/100 WBC (Bld) 68.1 % 40.0 - 80.0 % [employer] Work Phone: Hematocrit (Bld) [Volume fraction] 32.6 % Low 40.0 - 52.0 % [employer] Phone: Hemoglobin (Bld) [Mass/Vol] 10.3 g/dL Low 13.0 - 18.0 g/dL [employer] Work Phone: Interpretation and review of laboratory results Abnormal [employer] Work Phone: Lymphocytes (Bld) [#/Vol] 1.0 10*3/uL 1.0 - 4.3 10*3/uL [employer] Work Phone: 22 Lymphocytes/100 WBC (Bld) 17.7 % Low 20.0 - 40.0 % [employer] Work Phone: MCH (RBC) [Entitic mass] 26.4 pg 26. 0 - 34.0 pg [employer] Work Phone: MCHC (RBC) [Mass/Vol] 31.7 % Low 32.0 - 36.0 % [employer] Work Phone: MCV (RBC) [Entitic vol] 83.4 fL 80.0 - 98.0 fL [employer] Work Phone: Monocytes (Bld) [#/Vol] 0.4 10*3/uL 0.0 - 0.8 10*3/uL [employer] Work Phone: [phone] Monocytes/100 WBC (Bld) 6.2 % 2.0 - 10.0 % [employer] Work Phone: [phone] Platelet mean volume (Bld) [Entitic vol] 9.0 fL 7.4 - 10.4 fL [employer] Work Phone: [phone] Platelets (Bld) [#/Vol] 230 10*3/uL 140 - 440 10*3/uL [employer] Work Phone: [phone] RBC (Bld) [#/Vol] 3.91 10*6/uL Low 4.40 - 5.9 0 10*6/uL [employer] Work Phone: [phone] WBC (Bld) [#/Vol] 5.7 10*3/uL 3.6 - 10.7 10*3/uL [employer] Work Phone: [phone] Test Performed by [facility], [address] [place] [address] [facility] Work Phone: Hemogram w/ Autodiffon 09-24 Abs Baso Cnt 0.2 10*3/uL Normal 0.0-0.[address] [facility] Comment on above: Performed By: #### B GLU #### [facility] [address] [place] [address] Abs Neutrophile Cnt 3.9 10*3/uL Normal 1.8-7.0 [facility] Comment on above: Performed By: #### B GLU #### [facility] [address] [place] [address] Basophils/100 WBC (Bld) 3.1 % High 0.0-2.0 [facility] Comment on above: Performed By: #### B GLU #### [facility] [address] [place] [address] Eosinophils (Bld) [#/Vol] 0.3 10*3/uL Normal 0.0-0.5 [facility] Comment on above: Performed By: #### B GLU #### [facility] [address] [place] [address] Eosinophils/100 WBC (Bld) 4.9 % Normal 1.0-6.0 [facility] Comment on above: Performed By: #### B GLU #### [facility] [address] [place] [address] Erythrocyte distribution width (RBC) [Ratio] 33.7 % High 11.5-14.5 [facility] Comment on above: Performed By: #### B GLU #### [facility] [address] [place] [address] Granulocytes/100 WBC (Bld) 68.1 % Normal 40.0-80.0 [facility] Comment on above: Performed By: #### B GLU #### [facility] [address] [place] [address] Hematocrit (Bld) [Volume fraction] 32.6 % Low 40.0-52.0 [facility] Comment on above: Performed By: #### B GLU #### [facility] [address] [place] [address] Hemoglobin (Bld) [Mass/Vol] 10.3 g/dL Low 13.0-18.0 [facility] Comment on above: Performed By: #### B GLU #### [facility] [address] [place] [address] Lymphocytes (Bld) [#/Vol] 1.0 10*3/uL Normal 1.0-4.3 [facility] Comment on above: Performed By: #### B GLU #### [facility] [address] [place] [address] Lymphocytes/100 WBC (Bld) 17.7 % Low 20.0-40.0 [facility] Comment on above: Performed By: #### B GLU #### [facility] [address] [place] [address] MCH (RBC) [Entitic mass] 26.4 pg Normal 26.0-34.0 [facility] Comment on above: Performed By: #### B GLU #### [facility] [address] [place] [address] MCHC 31.7 % Low 32.0-36.0 [facility] Comment on above: Performed By: #### B GLU #### [facility] [address] [place] [address] MCV (RBC) [Entitic vol] 83.4 fL Normal 80.0-98.0 [facility] Comment on above: Performed By: #### B GLU #### [facility] [address] [place] [address] Monocytes (Bld) [#/Vol] 0.4 10*3/uL Normal 0.0-0.8 [facility] Comment on above: Performed By: #### B GLU #### [facility] [address] [place] [address] Monocytes/100 WBC (Bld) 6.2 % Normal 2.0-10.0 [facility] Comment on above: Performed By: #### B GLU #### [facility] [address] [place] [address] Platelet mean volume (Bld) [Entitic vol] 9.0 fL Normal 7.4-10.4 [facility] Comment on above: Performed By: #### B GLU #### [facility] [address] [place] [address] Platelets (Bld) [#/Vol] 230 10*3/uL Normal 140-440 [facility] Comment on above: Performed By: #### B GLU #### [facility] [address] [place] [address] RBC (Bld) [#/Vol] 3.91 10*6/uL Low 4.40-5.90 [facility] Comment on above: Performed By: #### B GLU #### [facility] [address] [place] [address] WBC (Bld) [#/Vol] 5.7 10*3/uL Normal 3.6-10.7 [facility] Comment on above: Performed By: #### B GLU #### [facility] [address] [place] [address] Magnesiumon 09-24-2020 Magnesium [Mass/Vol] 1.8 mg/dL Normal 1.6-2.3 [facility] Comment on above: Performed By: #### B GLU #### [facility] [address] [place] [address] Magnesium [Mass/Vol] 1.8 mg/dL 1.6 - 2 .3 mg/dL [facility] Work Phone: Metabolic Panelon 09-24-2020 Sodium [Moles/Vol] Slight [facility] Work Phone: NT pro BNPon 09-24-2020 Natriuretic peptide B (Bld) [Mass/Vol] 78653 pg/mL High 0-450 [facility] Comment on above: Performed By: #### B GLU #### [facility] [address] [place] [address] Otheron 09-24-2020 Test Performed by [facility], [facility] [place] [facility] [address] Work Phone: RBC MORPHOLOGYon 09-24-2020 Anisocytosis Ql (Bld) Slight [facility] [place] Work Phone: RBC morphology finding Nom (Bld) ABNORMAL [facility] Work Phone: Sodium [Moles/Vol] Moderate [facility] Work Phone: Test Performed by [facility], [facility] [place] [facility] [address] Work Phone: RBC Morphologyon 09-24-2020 Acanthocytes Slight Normal [facility] Comment on above: Performed By: #### B GLU #### [facility] [address] [place] [address] Anisocytosis Ql (Bld) Slight Normal [facility] Comment on above: Performed By: #### B GLU #### [facility] [address] [place] [address] Elliptocytes Slight Normal [facility] Comment on above: Performed By: #### B GLU #### [facility] [address] [place] [address] Hypochromia Moderate Normal [facility] Comment on above: Performed By: #### B GLU #### [facility] [address] [place] [address] Macrocytosis Slight Normal [facility] Comment on above: Performed By: #### B GLU #### [facility] [address] [place] [address] Poikilocytosis Slight Normal [facility] Comment on above: Performed By: #### B GLU #### [facility] [address] [place] [address] Polychromasia Slight Normal [facility] Comment on above: Performed By: #### B GLU #### [facility] [address] [place] [address] RBC morphology finding Nom (Bld) ABNORMAL Normal [facility] Comment on above: Performed By: #### B GLU #### [facility] [address] [place] [address] Basic Metabolic Panelon 03-0 Anion gap [Moles/Vol] 10 mmol/L Normal 3-13 [facility] Comment on above: Performed By: #### L IPD2, BMP3, MG3 #### [facility] [address] [place] [address] Calcium [Mass/Vol] 9.0 mg/dL Normal 8.4-10.4 [facility] Comment on above: Performed By: #### L IPD2, BMP3, MG3 #### [facility] [address] [place] [address] CO2 [Moles/Vol] 30 mmol/L Normal 22-30 [facility] Comment on above: Performed By: #### L IPD2, BMP3, MG3 #### [facility] [address] [place] [address] Glucose [Mass/Vol] 110 mg/dL High 70-100 [facility] Comment on above: Performed By: #### L IPD2, BMP3, MG3 #### [facility] [address] [place] [address] Urea nitrogen [Mass/Vol] 42 mg/dL High 7-20 [facility] Comment on above: Performed By: #### L IPD2, BMP3, MG3 #### [facility] [address] [place] [address] Creatinine [Mass/Vol] 2.38 mg/dL High 0.52-1.25 [facility] Comment on above: Performed By: #### L IPD2, BMP3, MG3 #### [facility] [address] [place] [address] GFR/1.73 sq M.predicted among blacks MDRD (S/P/Bld) [Vol rate/Area] 28.5 mL/min/{1.73_m2} Abnormal >60 [facility] Comment on above: Performed By: #### L IPD2, BMP3, MG3 #### [facility] [address] [place] [address] GFR/1.73 sq M.predicted among non-blacks MDRD (S/P/Bld) [Vol rate/Area] 24.6 mL/min/{1.73_m2} Abnormal >60 [facility] Comment on above: Result Comment: KDIG [...] #### L IPD2, BMP3, MG3 #### [facility] [address] [place] [address] Potassium [Moles/Vol] 3.5 mmol/L Normal 3.5-5.1 [facility] Comment on above: Result Comment: Slig htly hemolysed, interpret with caution. Performed By: #### L IPD2, BMP3, MG3 #### [facility] [address] [place] [address] Sodium [Moles/Vol] 137 mmol/L Normal 135-145 [facility] Comment on above: Performed By: #### L IPD2, BMP3, MG3 #### [facility] [address] [place] [address] Chloride [Moles/Vol] 97 mmol/L Low 98-107 [facility] Comment on above: Performed By: #### L IPD2, BMP3, MG3 #### [facility] [address] [place] [address] Anion gap [Moles/Vol] 10 mmol/L 3 - 13 mmol/L [facility] Work Phone: Calcium [Mass/Vol] 9.0 mg/dL 8.4 - 10. 4 mg/dL [facility] Work Phone: Chloride [Moles/Vol] 97 mmol/L Low 98 - 10 7 mmol/L [facility] Work Phone: CO2 [Moles/Vol] 30 mmol/L 22 - 30 mmol/L [facility] Work Phone: Creatinine [Mass/Vol] 2.38 mg/dL High 0.52 - 1.25 mg/dL [facility] Work Phone: EGFR IF NonAfrican Indian 24.6 mL/min Abnormal >60 [facility] Work Phone: Comment [...] 28.5 mL/min/{1.73_m2} Abnormal >60 [facility] Work Phone: [phone] Glucose [Mass/Vol] 110 mg/dL High 70 - 100 mg/dL [facility] Work Phone: [phone] Interpretation and review of laboratory results Abnormal [employer] Work Phone: [phone] Potassium [Moles/Vol] 3.5 mmol/L 3.5 - 5.1 mmol/L [facility] Work Phone: [phone] Comment on above: Slightly hemolysed, interpret with caution. Sodium [Moles/Vol] 137 mmol/L 135 - 145 mmol/L [facility] Work Phone: [phone] Urea nitrogen [Mass/Vol] 42 mg/dL High 7 - 20 mg/d L [employer] Work Phone: [phone] CBC Auto Differentialon 03-0 Absolute Baso # 0.2 10*3/uL 0.0 - 0.2 10*3/uL [employer] Work Phone: [phone] Absolute Neut # 4.0 10*3/uL 1.8 - 7.0 10*3/uL [employer] Work Phone: [phone] Basophils/100 WBC (Bld) 2.6 % High 0.0 - 2.0 % [employer] Work Phone: [phone] Eosinophils (Bld) [#/Vol] 0.2 10*3/uL 0.0 - 0.5 10*3/uL [employer] Work Phone: [phone] Eosinophils/100 WBC (Bld) 3.5 % 1.0 - 6.0 % [employer] Work Phone: [phone] Erythrocyte distribution width (RBC) [Ratio] 33.2 % High 11.5 - 14.5 % [employer] Work Phone: [phone] Granulocytes/100 WBC (Bld) 67.9 % 40.0 - 80.0 % [employer] Work Phone: [phone] Hematocrit (Bld) [Volume fraction] 34.2 % Low 40.0 - 52.0 % [employer] Work Phone: [phone] Hemoglobin (Bld) [Mass/Vol] 11.0 g/dL Low 13.0 - 18.0 g/dL [facility] Work Phone: [phone] Interpretation and review of laboratory results Abnormal [employer] Work Phone: 1 Lymphocytes (Bld) [#/Vol] 1.2 10*3/uL 1.0 - 4.3 10*3/uL [employer] Work Phone: 1 Lymphocytes/100 WBC (Bld) 19.7 % Low 20.0 - 40.0 % [employer] Work Phone: MCH (RBC) [Entitic mass] 26.6 pg 26. 0 - 34.0 pg [employer] Work Phone: 1 MCHC (RBC) [Mass/Vol] 32.1 % 32.0 - 36.0 % [employer] Work Phone: 1 MCV (RBC) [Entitic vol] 82.6 fL 80.0 - 98.0 fL [employer] Work Phone: Monocytes (Bld) [#/Vol] 0.4 10*3/uL 0.0 - 0.8 10*3/uL [employer] Work Phone: 1 Monocytes/100 WBC (Bld) 6.3 % 2.0 - 10.0 % [employer] Work Phone: 1 Platelet mean volume (Bld) [Entitic vol] 8.5 fL 7.4 - 10.4 fL [employer] Work Phone: Platelets (Bld) [#/Vol] 245 10*3/uL 140 - 440 10*3/uL [employer] Work Phone: Comment on above: Clumped Platelets Revised: Comment was added, verified by TNM at 05:20 on 09/23/20 RBC (Bld) [#/Vol] 4.14 10*6/uL Low 4.40 - 5.9 0 10*6/uL [employer] Work Phone: WBC (Bld) [#/Vol] 5.9 10*3/uL 3.6 - 10.7 10*3/uL [employer] Work Phone: [phone] Performed by [email or web address] [facility], [address] [place] [address] [facility] Work Phone: Hemogram w/ Autodiffon 09-23 Platelets (Bld) [#/Vol] 245 10*3/uL Normal 140-440 [facility] Comment on above: Result Comment: Clum ped Platelets Revised: Comment was added, verified by TNM at 05:20 on 09/23/20 Performed By: #### B NP3, TROPN, BMP3, HEMDF #### [facility] [address] [place] [address] Abs Baso Cnt 0.2 10*3/uL Normal 0.0-0.2 [facility] Comment on above: Performed By: #### B NP3, TROPN, BMP3, HEMDF #### [facility] [address] [place] [address] Abs Neutrophile Cnt 4.0 10*3/uL Normal 1.8-7.0 [facility] Comment on above: Performed By: #### B NP3, TROPN, BMP3, HEMDF #### [facility] [address] [place] [address] Basophils/100 WBC (Bld) 2.6 % High 0.0-2.0 S [facility] Comment on above: Performed By: #### B NP3, TROPN, BMP3, HEMDF #### [facility] [address] [place] [address] Eosinophils (Bld) [#/Vol] 0.2 10*3/uL Normal 0.0-0.5 [facility] Comment on above: Performed By: #### B NP3, TROPN, BMP3, HEMDF #### [facility] [address] [place] [address] Eosinophils/100 WBC (Bld) 3.5 % Normal 1.0-6.0 [facility] Comment on above: Performed By: #### B NP3, TROPN, BMP3, HEMDF #### [facility] [address] [place] [address] Erythrocyte distribution width (RBC) [Ratio] 33.2 % High 11.5-14.5 [facility] Comment on above: Performed By: #### B NP3, TROPN, BMP3, HEMDF #### [facility] [address] [place] [address] Granulocytes/100 WBC (Bld) 67.9 % Normal 40.0-80.0 [facility] Comment on above: Performed By: #### B NP3, TROPN, BMP3, HEMDF #### [facility] [address] [place] [address] Hematocrit (Bld) [Volume fraction] 34.2 % Low 40.0-52.0 [facility] Comment on above: Performed By: #### B NP3, TROPN, BMP3, HEMDF #### [facility] [address] [place] [address] Hemoglobin (Bld) [Mass/Vol] 11.0 g/dL Low 13.0-18.0 [facility] Comment on above: Performed By: #### B NP3, TROPN, BMP3, HEMDF #### [facility] [address] [place] [address] Lymphocytes (Bld) [#/Vol] 1.2 10*3/uL Normal 1.0-4.3 [facility] Comment on above: Performed By: #### B NP3, TROPN, BMP3, HEMDF #### [facility] [address] [place] [address] Lymphocytes/100 WBC (Bld) 19.7 % Low 20.0-40.0 [facility] Comment on above: Performed By: #### B NP3, TROPN, BMP3, HEMDF #### [facility] [address] [place] [address] MCH (RBC) [Entitic mass] 26.6 pg Normal 26.0-34.0 [facility] Comment on above: Performed By: #### B NP3, TROPN, BMP3, HEMDF #### [facility] [address] [place] [address] MCHC 32.1 % Normal 32.0-36.0 [facility] Comment on above: Performed By: #### B NP3, TROPN, BMP3, HEMDF #### [facility] [address] [place] [address] MCV (RBC) [Entitic vol] 82.6 fL Normal 80.0-98.0 [facility] Comment on above: Performed By: #### B NP3, TROPN, BMP3, HEMDF #### [facility] [address] [place] [address] Monocytes (Bld) [#/Vol] 0.4 10*3/uL Normal 0.0-0.8 [facility] Comment on above: Performed By: #### B NP3, TROPN, BMP3, HEMDF #### [facility] [address] [place] [address] Monocytes/100 WBC (Bld) 6.3 % Normal 2.0-10.0 [facility] Comment on above: Performed By: #### B NP3, TROPN, BMP3, HEMDF #### [facility] [address] [place] [address] Platelet mean volume (Bld) [Entitic vol] 8.5 fL Normal 7.4-10.4 [facility] Comment on above: Performed By: #### B NP3, TROPN, BMP3, HEMDF #### [facility] [address] [place] [address] RBC (Bld) [#/Vol] 4.14 10*6/uL Low 4.40-5.90 [facility] Comment on above: Performed By: #### B NP3, TROPN, BMP3, HEMDF #### [facility] [address] [place] [address] WBC (Bld) [#/Vol] 5.9 10*3/uL Normal 3.6-10.7 [facility] Comment on above: Performed By: #### B NP3, TROPN, BMP3, HEMDF #### [facility] [address] [place] [address] Hepatic Functionon 1 ALP [Catalytic activity/Vol] 104 U/L Normal 38-126 [facility] Comment on above: Result Comment: Slig htly hemolysed, interpret with caution. Performed By: #### B NP3, TROPN, BMP3, HEMDF #### [facility] [address] [place] [address] ALT [Catalytic activity/Vol] 27 U/L Normal 0-49 [facility] Comment on above: Result Comment: The ALT test is performed by an updated assay method. Please note that the reference intervals have been changed and are now sex specific. Performed By: #### B NP3, TROPN, BMP3, HEMDF #### [facility] [address] [place] [address] AST [Catalytic activity/Vol] 56 U/L High 15-46 [facility] Comment on above: Performed By: #### B NP3, TROPN, BMP3, HEMDF #### [facility] [address] [place] [address] Bilirubin [Mass/Vol] 1.9 mg/dL High 0.2-1.3 [facility] Comment on above: Performed By: #### B NP3, TROPN, BMP3, HEMDF #### [facility] [address] [place] [address] Bilirubin.indirect [Mass/Vol] 0.0 mg/dL Normal 0.0-0.3 [facility] Comment on above: Performed By: #### B NP3, TROPN, BMP3, HEMDF #### [facility] [address] [place] [address] Protein [Mass/Vol] 6.6 g/dL Normal 6.3-8.2 [facility] Comment on above: Performed By: #### B NP3, TROPN, BMP3, HEMDF #### [facility] [address] [place] [address] Albumin [Mass/Vol] 3.6 g/dL Normal 3.5-5.0 [facility] Comment on above: Performed By: #### B NP3, TROPN, BMP3, HEMDF #### [facility] [address] [place] [address] Hepatic Function Panelon Albumin [Mass/Vol] 3.6 g/dL 3.5 - 5.0 g/dL [facility] Work Phone: ALP [Catalytic activity/Vol] 104 U/L 38 - 126 U/L [facility] Work Phone: 1 Comment on above: Slightly hemolysed, interpret with caution. ALT [Catalytic activity/Vol] 27 U/L 0 - 49 U/L [facility] Work Phone: 1 Comment on above: The ALT test is perf ormed by an updated assay method. Please note that the reference intervals have been changed and are now sex specific. AST [Catalytic activity/Vol] 56 U/L High 15 - 46 U/L [facility] Work Phone: 1 Bilirubin Ql (U) 1.9 mg/dL High 0.2 - 1.3 mg/dL [facility] Work Phone: 1 Bilirubin.direct [Mass/Vol] 0.0 mg/dL 0.0 - 0.3 mg/dL [facility] Work Phone: 1 Interpretation and review of laboratory results Abnormal [facility] Work Phone: 1 Protein [Mass/Vol] 6.6 g/dL 6.3 - 8.2 g/dL [facility] Work Phone: 1 Test Performed by [facility], [address] [place], [place] [address] [facility] Work Phone: 1 Magnesiumon 09-23-2020 Magnesium [Mass/Vol] 2.0 mg/dL Normal 1.6-2.3 [facility] Comment on above: Performed By: #### L IPD2, BMP3, MG3 #### [facility] [address] [place] [address] Magnesium [Mass/Vol] 2.0 mg/dL 1.6 - 2 .3 mg/dL [facility] Work Phone: 1 Metabolic Panelon 09-23-2020 Sodium [Moles/Vol] Slight [facility] Work Phone: 1 Sodium [Moles/Vol] Moderate [facility] Work Phone: 1 Otheron 09-23-2020 Test Performed by [facility], [address] [place], [place] [address] [facility] Work Phone: 1 RBC MORPHOLOGYon 09-23-2020 Anisocytosis Ql (Bld) Marked [facility] Work Phone: RBC morphology finding Nom (Bld) ABNORMAL [facility] Work Phone: [phone] Sodium [Moles/Vol] Present [facility] Work Phone: Test Performed by [facility], [address] [place] [address] [facility] Work Phone: RBC Morphologyon 09-23-2020 Acanthocytes Slight Normal [facility] Comment on above: Performed By: #### B NP3, TROPN, BMP3, HEMDF #### [facility] [address] [place] [address] Anisocytosis Ql (Bld) Marked Normal [facility] Comment on above: Performed By: #### B NP3, TROPN, BMP3, HEMDF #### [facility] [address] [place] [address] [place] Cells Slight Normal [facility] Comment on above: Performed By: #### B NP3, TROPN, BMP3, HEMDF #### [facility] [address] [place] [address] Dimorphic RBCs Present Normal [facility] Comment on above: Performed By: #### B NP3, TROPN, BMP3, HEMDF #### [facility] [address] [place] [address] Elliptocytes Slight Normal [facility] Comment on above: Performed By: #### B NP3, TROPN, BMP3, HEMDF #### [facility] [address] [place] [address] Hypochromia Moderate Normal [facility] Comment on above: Performed By: #### B NP3, TROPN, BMP3, HEMDF #### [facility] [address] [place] [address] Ovalocytes Slight Normal [facility] Comment on above: Performed By: #### B NP3, TROPN, BMP3, HEMDF #### [facility] [address] [place] [address] Poikilocytosis Moderate Normal [facility] Comment on above: Performed By: #### B NP3, TROPN, BMP3, HEMDF #### [facility] [address] [place] [address] Polychromasia Slight Normal [facility] Comment on above: Performed By: #### B NP3, TROPN, BMP3, HEMDF #### [facility] [address] [place] [address] RBC morphology finding Nom (Bld) ABNORMAL Normal [facility] Comment on above: Performed By: #### B NP3, TROPN, BMP3, HEMDF #### [facility] [address] [place] [address] Schistocytes Slight Normal [facility] Comment on above: Performed By: #### B NP3, TROPN, BMP3, HEMDF #### [facility] [address] [place] [address] Target Cells Slight Normal [facility] Comment on above: Performed By: #### B NP3, TROPN, BMP3, HEMDF #### [facility] [address] [place] [address] Add On Lab Teston 09-22-2020 Sodium [Moles/Vol] Accepted [facility] Work Phone: Comment on above: Specimen available & acceptable for analysis. Test Performed by [facility], [address] [place], [place] [address] [place] [address] Work Phone: Add on test from HISon 09-22 Add on test from HIS Accepted Normal [facility] Comment on above: Result Comment: Spec imen available & acceptable for analysis. Performed By: #### B NP3, TROPN, BMP3, HEMDF #### [facility] [address] [place] [address] Basic Metabolic Panelon 0 Anion gap [Moles/Vol] 10 mmol/L Normal 3-13 [facility] Comment on above: Order Comment: SLIGH T HEMOLYSIS Performed By: #### B GLU #### [facility] [address] [place] [address] Calcium [Mass/Vol] 8.1 mg/dL Low 8.4-10.4 [facility] Comment on above: Order Comment: SLIGH T HEMOLYSIS Performed By: #### B GLU #### [facility] [address] [place] [address] CO2 [Moles/Vol] 26 mmol/L Normal 22-30 [facility] Comment on above: Order Comment: SLIGH T HEMOLYSIS Performed By: #### B GLU #### [facility] [address] [place] [address] Glucose [Mass/Vol] 99 mg/dL Normal 70-100 [facility] Comment on above: Order Comment: SLIGH T HEMOLYSIS Performed By: #### B GLU #### [facility] [address] [place] [address] Urea nitrogen [Mass/Vol] 38 mg/dL High 7-20 [facility] Comment on above: Order Comment: SLIGH T HEMOLYSIS Performed By: #### B GLU #### [facility] [address] [place] [address] Creatinine [Mass/Vol] 2.24 mg/dL High 0.52-1.25 [facility] Comment on above: Order Comment: SLIGH T HEMOLYSIS Performed By: #### B GLU #### [facility] [address] [place] [address] GFR/1.73 sq M.predicted among blacks MDRD (S/P/Bld) [Vol rate/Area] 30.7 mL/min/{1.73_m2} Abnormal >60 [facility] Comment on above: Order Comment: SLIGH T HEMOLYSIS Performed By: #### B GLU #### [facility] [address] [place] [address] GFR/1.73 sq M.predicted among non-blacks MDRD (S/P/Bld) [Vol rate/Area] 26.4 mL/min/{1.73_m2} Abnormal >60 [facility] Comment on above: Order Comment: SLIGH [...] secretion. Performed By: #### B GLU #### [facility] [address] [place] [address] Potassium [Moles/Vol] 3.8 mmol/L Normal 3.5-5.1 [facility] Comment on above: Order Comment: SLIGH T HEMOLYSIS Performed By: #### B GLU #### [facility] [address] [place] [address] Chloride [Moles/Vol] 102 mmol/L Normal 98-107 [facility] Comment on above: Order Comment: SLIGH T HEMOLYSIS Performed By: #### B GLU #### [facility] [address] [place] [address] Sodium [Moles/Vol] 139 mmol/L Normal 135-145 [facility] Comment on above: Order Comment: SLIGH T HEMOLYSIS Performed By: #### B GLU #### [facility] [address] [place] [address] Anion gap [Moles/Vol] 10 mmol/L 3 - 13 mmol/L [facility] Work Phone: Calcium [Mass/Vol] 8.1 mg/dL Low 8.4 - 10. 4 mg/dL [facility] Work Phone: Chloride [Moles/Vol] 102 mmol/L 98 - 10 7 mmol/L [facility] Work Phone: CO2 [Moles/Vol] 26 mmol/L 22 - 30 mmol/L [facility] Work Phone: Creatinine [Mass/Vol] 2.24 mg/dL High 0.52 - 1.25 mg/dL [facility] Work Phone: EGFR IF NonAfrican Indian 26.4 mL/min Abnormal >60 [facility] Work Phone: Comment [...] (S/P/Bld) [Vol rate/Area] 30.7 mL/min/{1.73_m2} Abnormal >60 [facility] Work Phone: [phone] Glucose [Mass/Vol] 99 mg/dL 70 - 100 mg/dL [facility] Work Phone: [phone] Potassium [Moles/Vol] 3.8 mmol/L 3.5 - 5.1 mmol/L [facility] Work Phone: [phone] Sodium [Moles/Vol] 139 mmol/L 135 - 145 mmol/L [facility] Work Phone: [phone] Urea nitrogen [Mass/Vol] 38 mg/dL High 7 - 20 mg/d L [facility] Work Phone: [phone] CBCon 09-22-2020 Erythrocyte distribution width (RBC) [Ratio] 34.1 % High 11.5 - 14.5 % [employer] Work Phone: [phone] Hematocrit (Bld) [Volume fraction] 33.6 % Low 40.0 - 52.0 % [facility] Work Phone: [phone] Hemoglobin (Bld) [Mass/Vol] 10.6 g/dL Low 13.0 - 18.0 g/dL [employer] Work Phone: [phone] Interpretation and review of laboratory results Abnormal [facility] Work Phone: [phone] MCH (RBC) [Entitic mass] 26.2 pg 26. 0 - 34.0 pg [employer] Work Phone: [phone] MCHC (RBC) [Mass/Vol] 31.6 % Low 32.0 - 36.0 % [employer] Work Phone: [phone] MCV (RBC) [Entitic vol] 82.9 fL 80.0 - 98.0 fL [employer] Work Phone: [phone] Platelet mean volume (Bld) [Entitic vol] 8.5 fL 7.4 - 10.4 fL [employer] Work Phone: [phone] Platelets (Bld) [#/Vol] 207 10*3/uL 140 - 440 10*3/uL [employer] Work Phone: [phone] RBC (Bld) [#/Vol] 4.05 10*6/uL Low 4.40 - 5.9 0 10*6/uL [employer] Work Phone: [phone] WBC (Bld) [#/Vol] 4.8 10*3/uL 3.6 - 10.7 10*3/uL [employer] Work Phone: [phone] Test Performed by [facility], [address] [place] [address] [employer] Work Phone: [phone] CR Chest Portableon 09-23-19 21 CR Chest Portable Patient Name: MEGAN NASCIMENTO Diagnostic Radiology ACCESSION EXAM DATE/TIME PROCEDURE ORDERING PROVIDER [id number] 09/22/2020 09:20 EST CR Chest Portable MAURO PADGETT CPT code 76660 Reason For Exam (CR Chest Portable) chf [...] Report Dictated on Final Dictating Physician: MD JEAN, ESTEBAN Signed Date and Time: 09/22/2020 9:30 am Signed by: MD JEAN, AHMAAnson Transcribed Date and Time: 09/22/2020 9:31 Normal [facility] EKG 12 Leadon 09-22-2020 Chaim, [facility] Incoming Cardiology Results From [facility] - 09/22/2020 10:24 AM EST [facility] Test Date: 2020-09-21 Pat Name: Megan Nascimento Department: [facility] Room: 232 Gender: M Training Technician: : 1940 Requested By: MAURO PADGETT Order Number: [id number] Reading MD: Camden Pepper Measurements Intervals [place] Rate: 109 P: 0 NC: QRS: -72 QRSD: 122 T: 124 QT: [...] Electronically Signed On 09-22-2020 10:23:20 EST by Camdenaaron Pepper CommissionerCarlos Work Phone: [facility] Test Date: 2020-09-21 Pat Name: Megan Nascimento Department: [facility] Room: 232 Gender: M Training Technician: : 1940 Requested By: MAURO PADGETT Order Number: [id number] Reading MD: Camden Pepper Measurements Intervals [place] Rate: 109 P: 0 NC: QRS: -72 QRSD: 122 T: 124 QT: [...] Electronically Signed On 09-22-2020 10:23:20 EST by Camdenaaron Pepper CommissionerCarlos Work Phone: Hemogramon 09-22-2020 Erythrocyte distribution width (RBC) [Ratio] 34.1 % High 11.5-14.5 [facility] Comment on above: Performed By: #### B GLU #### [facility] [address] [place] [address] Hematocrit (Bld) [Volume fraction] 33.6 % Low 40.0-52.0 [facility] Comment on above: Performed By: #### B GLU #### [facility] [address] [place] [address] Hemoglobin (Bld) [Mass/Vol] 10.6 g/dL Low 13.0-18.0 [facility] Comment on above: Performed By: #### B GLU #### [facility] [address] [place] [address] MCH (RBC) [Entitic mass] 26.2 pg Normal 26.0-34.0 [facility] Comment on above: Performed By: #### B GLU #### [facility] [address] [place] [address] MCHC 31.6 % Low 32.0-36.0 [facility] Comment on above: Performed By: #### B GLU #### [facility] [address] [place] [address] MCV (RBC) [Entitic vol] 82.9 fL Normal 80.0-98.0 S [facility] Comment on above: Performed By: #### B GLU #### [facility] [address] [place] [address] Platelet mean volume (Bld) [Entitic vol] 8.5 fL Normal 7.4-10.4 [facility] Comment on above: Performed By: #### B GLU #### [facility] [address] [place] [address] Platelets (Bld) [#/Vol] 207 10*3/uL Normal 140-440 [facility] Comment on above: Performed By: #### B GLU #### [facility] [address] [place] [address] RBC (Bld) [#/Vol] 4.05 10*6/uL Low 4.40-5.90 [facility] Comment on above: Performed By: #### B GLU #### [facility] [address] [place] [address] WBC (Bld) [#/Vol] 4.8 10*3/uL Normal 3.6-10.7 [facility] Comment on above: Performed By: #### B GLU #### [facility] [address] [place] [address] Hepatic Functionon 1 ALP [Catalytic activity/Vol] 100 U/L Normal 38-126 [facility] Comment on above: Order Comment: SLIGH T HEMOLYSIS Performed By: #### B GLU #### [facility] [address] [place] [address] ALT [Catalytic activity/Vol] 25 U/L Normal 0-49 [facility] Comment on above: Order Comment: SLIGH T HEMOLYSIS Result Comment: The ALT test is performed by an updated assay method. Please note that the reference intervals have been changed and are now sex specific. Performed By: #### B GLU #### [facility] [address] [place] [address] AST [Catalytic activity/Vol] 66 U/L High 15-46 [facility] Comment on above: Order Comment: SLIGH T HEMOLYSIS Performed By: #### B GLU #### [facility] [address] [place] [address] Bilirubin [Mass/Vol] 1.9 mg/dL High 0.2-1.3 [facility] Comment on above: Order Comment: SLIGH T HEMOLYSIS Performed By: #### B GLU #### [facility] [address] [place] [address] Protein [Mass/Vol] 6.0 g/dL Low 6.3-8.2 [facility] Comment on above: Order Comment: SLIGH T HEMOLYSIS Performed By: #### B GLU #### [facility] [address] [place] [address] Bilirubin.indirect [Mass/Vol] 0.0 mg/dL Normal 0.0-0.3 [facility] Comment on above: Order Comment: SLIGH T HEMOLYSIS Performed By: #### B GLU #### [facility] [address] [place] [address] Albumin [Mass/Vol] 3.2 g/dL Low 3.5-5.0 [facility] Comment on above: Order Comment: SLIGH T HEMOLYSIS Performed By: #### B GLU #### [facility] [address] [place] [address] Hepatic Function Panelon Albumin [Mass/Vol] 3.2 g/dL Low 3.5 - 5.0 g/dL [facility] Work Phone: 1 ALP [Catalytic activity/Vol] 100 U/L 38 - 126 U/L [facility] Work Phone: 1 ALT [Catalytic activity/Vol] 25 U/L 0 - 49 U/L [facility] Work Phone: [phone] Comment on above: The ALT test is perf ormed by an updated assay method. Please note that the reference intervals have been changed and are now sex specific. AST [Catalytic activity/Vol] 66 U/L High 15 - 46 U/L [facility] Work Phone: 1 Bilirubin Ql (U) 1.9 mg/dL High 0.2 - 1.3 mg/dL [facility] Work Phone: 1 Bilirubin.direct [Mass/Vol] 0.0 mg/dL 0.0 - 0.3 mg/dL [facility] Work Phone: [phone] Interpretation and review of laboratory results Abnormal [facility] Work Phone: 1 Protein [Mass/Vol] 6.0 g/dL Low 6.3 - 8.2 g/dL [facility] Work Phone: Test Performed by [facility], [address] [place], [place] [address] SLIGHT HEMOLYSIS [facility] Work Phone: [phone] Magnesiumon 09-22-2020 Magnesium [Mass/Vol] 1.5 mg/dL Low 1.6-2.3 [facility] Comment on above: Order Comment: SLIGH T HEMOLYSIS Performed By: #### B GLU #### [facility] [address] [place] [address] Magnesium [Mass/Vol] 1.5 mg/dL Low 1.6 - 2 .3 mg/dL [facility] Work Phone: [phone] Otheron 09-22-2020 Interpretation and review of laboratory results Abnormal [facility] Work Phone: Test Performed by [facility], [address], [place], [place] [address] [facility] Work Phone: XR CHEST PORTABLEon 09-23-19 21 Chaim, [facility] 09/22/2020 9:32 AM EST Patient Name: MEGAN NASCIMENTO Diagnostic Radiology ACCESSION EXAM DATE/TIME PROCEDURE ORDERING PROVIDER [phone] 09/22/2020 09:20 EST CR Chest Portable LORIN MAURO Anson CPT code 32647 Reason For Exam (CR Chest Portable) chf [...] AHMAD Transcribed Date and Time: 09/22/2020 9:31 [facility] Work Phone: Patient Name: MEGAN NASCIMENTO Diagnostic Radiology ACCESSION EXAM DATE/TIME PROCEDURE ORDERING PROVIDER [id number] 09/22/2020 09:20 EST CR Chest Portable MAURO PADGETT CPT code 00564 Reason For Exam (CR Chest Portable) chf [...] AHMAD Transcribed Date and Time: 09/22/2020 9:31 [facility] Work Phone: Basic Metabolic Panelon 0 Calcium [Mass/Vol] 9.3 mg/dL Normal 8.4-10.4 [facility] Comment on above: Performed By: #### L IPD2, BMP3, MG3 #### [facility] [address] [place] [address] Anion gap [Moles/Vol] 13 mmol/L Normal 3-13 [facility] Comment on above: Performed By: #### L IPD2, BMP3, MG3 #### [facility] [address] [place] [address] CO2 [Moles/Vol] 30 mmol/L Normal 22-30 [facility] Comment on above: Performed By: #### L IPD2, BMP3, MG3 #### [facility] [address] [place] [address] Glucose [Mass/Vol] 127 mg/dL High 70-100 [facility] Comment on above: Performed By: #### L IPD2, BMP3, MG3 #### [facility] [address] [place] [address] Urea nitrogen [Mass/Vol] 41 mg/dL High 7-20 [facility] Comment on above: Performed By: #### L IPD2, BMP3, MG3 #### [facility] [address] [place] [address] Creatinine [Mass/Vol] 2.57 mg/dL High 0.52-1.25 [facility] Comment on above: Performed By: #### L IPD2, BMP3, MG3 #### [facility] [address] [place] [address] GFR/1.73 sq M.predicted among blacks MDRD (S/P/Bld) [Vol rate/Area] 26.0 mL/min/{1.73_m2} Abnormal >60 [facility] Comment on above: Performed By: #### L IPD2, BMP3, MG3 #### [facility] [address] [place] [address] GFR/1.73 sq M.predicted among non-blacks MDRD (S/P/Bld) [Vol rate/Area] 22.4 mL/min/{1.73_m2} Abnormal >60 [facility] Comment on above: Result Comment: KDIG [...] By: #### L IPD2, BMP3, MG3 #### [facility] [address] [place] [address] Chloride [Moles/Vol] 97 mmol/L Low 98-107 [facility] Comment on above: Performed By: #### L IPD2, BMP3, MG3 #### [facility] [address] [place] [address] Potassium [Moles/Vol] 3.8 mmol/L Normal 3.5-5.1 [facility] Comment on above: Performed By: #### L IPD2, BMP3, MG3 #### [facility] [address] [place] [address] Sodium [Moles/Vol] 141 mmol/L Normal 135-145 [facility] Comment on above: Performed By: #### L IPD2, BMP3, MG3 #### [facility] [address] [place] [address] Anion gap [Moles/Vol] 13 mmol/L 3 - 13 mmol/L [facility] Work Phone: [phone] Calcium [Mass/Vol] 9.3 mg/dL 8.4 - 10. 4 mg/dL [facility] Work Phone: Chloride [Moles/Vol] 97 mmol/L Low 98 - 10 7 mmol/L [facility] Work Phone: CO2 [Moles/Vol] 30 mmol/L 22 - 30 mmol/L [facility] Work Phone: Creatinine [Mass/Vol] 2.57 mg/dL High 0.52 - 1.25 mg/dL [facility] Work Phone: [phone] IF NonAfrican Indian 22.4 mL/min Abnormal >60 [facility] Work Phone: [phone] Comment on above: KDIGO guidelines pro vide [...] (S/P/Bld) [Vol rate/Area] 26.0 mL/min/{1.73_m2} Abnormal >60 [facility] Work Phone: [phone] Glucose [Mass/Vol] 127 mg/dL High 70 - 100 mg/dL [facility] Work Phone: [phone] Interpretation and review of laboratory results Abnormal [facility] Work Phone: [phone] Potassium [Moles/Vol] 3.8 mmol/L 3.5 - 5.1 mmol/L [facility] Work Phone: Sodium [Moles/Vol] 141 mmol/L 135 - 145 mmol/L [facility] Work Phone: Urea nitrogen [Mass/Vol] 41 mg/dL High 7 - 20 mg/d L [facility] Work Phone: Test Performed by [employer], [address] [place], [place] [address] [facility] Work Phone: [phone] Anion gap [Moles/Vol] 15 mmol/L High 3 - 13 mmol/L [facility] Work Phone: Calcium [Mass/Vol] 9.2 mg/dL 8.4 - 10. 4 mg/dL [facility] Work Phone: [phone] Chloride [Moles/Vol] 96 mmol/L Low 98 - 10 7 mmol/L [facility] Work Phone: [phone] CO2 [Moles/Vol] 29 mmol/L 22 - 30 mmol/L [facility] Work Phone: [phone] Creatinine [Mass/Vol] 2.48 mg/dL High 0.52 - 1.25 mg/dL [facility] Work Phone: [phone] EGFR IF NonAfrican Indian 23.4 mL/min Abnormal >60 [facility] Work Phone: [phone] Comment on above: KDIGO guidelines pro vide [...] (S/P/Bld) [Vol rate/Area] 27.1 mL/min/{1.73_m2} Abnormal >60 [facility] Work Phone: 1 Glucose [Mass/Vol] 128 mg/dL High 70 - 100 mg/dL [facility] Work Phone: [phone] Interpretation and review of laboratory results Abnormal [employer] Work Phone: 1 Potassium [Moles/Vol] 4.1 mmol/L 3.5 - 5.1 mmol/L [facility] Work Phone: 1 Sodium [Moles/Vol] 140 mmol/L 135 - 145 mmol/L [facility] Work Phone: 1 Urea nitrogen [Mass/Vol] 38 mg/dL High 7 - 20 mg/d L [facility] Work Phone: 1 Test Performed by [employer], [facility] [place] [address] [employer] Work Phone: Brain Natriuretic Peptideon 09-21-2020 Interpretation and review of laboratory results Abnormal [employer] Work Phone: 1 Natriuretic peptide B (Bld) [Mass/Vol] 66684 pg/mL High 0 - 450 pg/mL [facility] Work Phone: 1 Test Performed by [employer] [address] [facility] Work Phone: Interpretation and review of laboratory results Abnormal [employer] Work Phone: 1 Natriuretic peptide B (Bld) [Mass/Vol] 21151 pg/mL High 0 - 450 pg/mL [facility] Work Phone: Test Performed by [employer], [facility] [place] [address] [facility] Work Phone: 1 CBC Auto Differentialon 03-0 Absolute Baso # 0.1 10*3/uL 0.0 - 0.2 10*3/uL [facility] Work Phone: 1 Absolute Neut # 3.9 10*3/uL 1.8 - 7.0 10*3/uL [facility] Work Phone: Basophils/100 WBC (Bld) 1.7 % 0.0 - 2.0 % [facility] Work Phone: 1 Eosinophils (Bld) [#/Vol] 0.1 10*3/uL 0.0 - 0.5 10*3/uL [facility] Work Phone: Eosinophils/100 WBC (Bld) 2.0 % 1.0 - 6.0 % [facility] Work Phone: Erythrocyte distribution width (RBC) [Ratio] 34.0 % High 11.5 - 14.5 % [facility] Work Phone: 1 Granulocytes/100 WBC (Bld) 71.9 % 40.0 - 80.0 % [facility] Work Phone: Hematocrit (Bld) [Volume fraction] 37.4 % Low 40.0 - 52.0 % [employer] Work Phone: Hemoglobin (Bld) [Mass/Vol] 11.7 g/dL Low 13.0 - 18.0 g/dL [employer] Work Phone: Interpretation and review of laboratory results Abnormal [employer] Work Phone: Lymphocytes (Bld) [#/Vol] 1.0 10*3/uL 1.0 - 4.3 10*3/uL [employer] Work Phone: Lymphocytes/100 WBC (Bld) 17.5 % Low 20.0 - 40.0 % [employer] Work Phone: MCH (RBC) [Entitic mass] 26.2 pg 26. 0 - 34.0 pg [facility] Work Phone: MCHC (RBC) [Mass/Vol] 31.4 % Low 32.0 - 36.0 % [facility] Work Phone: MCV (RBC) [Entitic vol] 83.6 fL 80.0 - 98.0 fL [facility] Work Phone: Monocytes (Bld) [#/Vol] 0.4 10*3/uL 0.0 - 0.8 10*3/uL [facility] Work Phone: Monocytes/100 WBC (Bld) 6.9 % 2.0 - 10.0 % [employer] Work Phone: Platelet mean volume (Bld) [Entitic vol] 8.9 fL 7.4 - 10.4 fL [employer] Work Phone: Platelets (Bld) [#/Vol] 237 10*3/uL 140 - 440 10*3/uL [employer] Work Phone: [phone] RBC (Bld) [#/Vol] 4.48 10*6/uL 4.40 - 5.9 0 10*6/uL [employer] Work Phone: [phone] WBC (Bld) [#/Vol] 5.5 10*3/uL 3.6 - 10.7 10*3/uL [employer] Work Phone: [facility] by [facility], [address] [place], [place] [address] [facility] Work Phone: Hemogram w/ [employer] 09-21 Abs Baso Cnt 0.1 10*3/uL Normal 0.0-0.2 [facility] Comment on above: Performed By: #### L IPD2, BMP3, MG3 #### [facility] [address] [place] [address] Abs Neutrophile Cnt 3.9 10*3/uL Normal 1.8-7.0 [facility] Comment on above: Performed By: #### L IPD2, BMP3, MG3 #### [facility] [address] [place] [address] Basophils/100 WBC (Bld) 1.7 % Normal 0.0-2.0 S [facility] Comment on above: Performed By: #### L IPD2, BMP3, MG3 #### [facility] [address] [place] [address] Eosinophils (Bld) [#/Vol] 0.1 10*3/uL Normal 0.0-0.5 [facility] [employer] Comment on above: Performed By: #### L IPD2, BMP3, MG3 #### [facility] [address] [place] [address] Eosinophils/100 WBC (Bld) 2.0 % Normal 1.0-6.0 [facility] Comment on above: Performed By: #### L IPD2, BMP3, MG3 #### [facility] [address] [place] [address] Erythrocyte distribution width (RBC) [Ratio] 34.0 % High 11.5-14.5 [facility] Comment on above: Performed By: #### L IPD2, BMP3, MG3 #### [facility] [address] [place] [address] Granulocytes/100 WBC (Bld) 71.9 % Normal 40.0-80.0 [facility] Comment on above: Performed By: #### L IPD2, BMP3, MG3 #### [facility] [address] [place] [address] Hematocrit (Bld) [Volume fraction] 37.4 % Low 40.0-52.0 [facility] Comment on above: Performed By: #### L IPD2, BMP3, MG3 #### [facility] [address] [place] [address] Hemoglobin (Bld) [Mass/Vol] 11.7 g/dL Low 13.0-18.0 [facility] Comment on above: Performed By: #### L IPD2, BMP3, MG3 #### [facility] [address] [place] [address] Lymphocytes (Bld) [#/Vol] 1.0 10*3/uL Normal 1.0-4.3 [facility] Comment on above: Performed By: #### L IPD2, BMP3, MG3 #### [facility] [address] [place] [address] Lymphocytes/100 WBC (Bld) 17.5 % Low 20.0-40.0 [facility] Comment on above: Performed By: #### L IPD2, BMP3, MG3 #### [facility] [address] [place] [address] MCH (RBC) [Entitic mass] 26.2 pg Normal 26.0-34.0 [facility] Comment on above: Performed By: #### L IPD2, BMP3, MG3 #### [facility] [address] [place] [address] MCHC 31.4 % Low 32.0-36.0 [facility] Comment on above: Performed By: #### L IPD2, BMP3, MG3 #### [facility] [address] [place] [address] MCV (RBC) [Entitic vol] 83.6 fL Normal 80.0-98.0 [facility] Comment on above: Performed By: #### L IPD2, BMP3, MG3 #### [facility] [address] [place] [address] Monocytes (Bld) [#/Vol] 0.4 10*3/uL Normal 0.0-0.8 [facility] Comment on above: Performed By: #### L IPD2, BMP3, MG3 #### [facility] [address] [place] [address] Monocytes/100 WBC (Bld) 6.9 % Normal 2.0-10.0 [facility] Comment on above: Performed By: #### L IPD2, BMP3, MG3 #### [facility] [address] [place] [address] Platelet mean volume (Bld) [Entitic vol] 8.9 fL Normal 7.4-10.4 [facility] Comment on above: Performed By: #### L IPD2, BMP3, MG3 #### [facility] [address] [place] [address] Platelets (Bld) [#/Vol] 237 10*3/uL Normal 140-440 [facility] Comment on above: Performed By: #### L IPD2, BMP3, MG3 #### [facility] [address] [place] [address] RBC (Bld) [#/Vol] 4.48 10*6/uL Normal 4.40-5.90 [facility] Comment on above: Performed By: #### L IPD2, BMP3, MG3 #### [facility] [address] [place] [address] WBC (Bld) [#/Vol] 5.5 10*3/uL Normal 3.6-10.7 [facility] Comment on above: Performed By: #### L IPD2, BMP3, MG3 #### [facility] [address] [place] [address] Metabolic Panelon 09-21-2020 Sodium [Moles/Vol] Slight [facility] Work Phone: NT pro BNPon 09-21-2020 Natriuretic peptide B (Bld) [Mass/Vol] 08512 pg/mL High 0-450 [facility] Comment on above: Performed By: #### L IPD2, BMP3, MG3 #### [facility] [address] [place] [address] RBC MORPHOLOGYon 09-21-2020 Anisocytosis Ql (Bld) Moderate [facility] Work Phone: RBC morphology finding Nom (Bld) ABNORMAL [facility] Work Phone: Test Performed by [facility], [facility] [address] [place], [place] [id number] [place] [address] Work Phone: RBC Morphologyon 09-21-2020 Acanthocytes Slight Normal [facility] Comment on above: Performed By: #### L IPD2, BMP3, MG3 #### [facility] [address] [place] [address] Anisocytosis Ql (Bld) Moderate Normal [facility] Comment on above: Performed By: #### L IPD2, BMP3, MG3 #### [facility] [address] [place] [address] Naomi Cells Slight Normal [facility] Comment on above: Performed By: #### L IPD2, BMP3, MG3 #### [facility] [address] [place] [address] Hypochromia Slight Normal [facility] Comment on above: Performed By: #### L IPD2, BMP3, MG3 #### [facility] [address] [place] [address] Poikilocytosis Slight Normal [facility] Comment on above: Performed By: #### L IPD2, BMP3, MG3 #### [facility] [address] [place] [address] RBC morphology finding Nom (Bld) ABNORMAL Normal [facility] Comment on above: Performed By: #### L IPD2, BMP3, MG3 #### [facility] [address] [place] [address] Schistocytes Slight Normal [facility] Comment on above: Performed By: #### L IPD2, BMP3, MG3 #### [facility] [address] [place] [address] Basic Metabolic Panel w/ Ref taz to MGon 09-15-2020 Anion gap [Moles/Vol] 12 mmol/L 3 - 13 mmol/L [facility] Work Phone: Calcium [Mass/Vol] 8.7 mg/dL 8.4 - 10. 4 mg/dL [facility] Work Phone: Chloride [Moles/Vol] 96 mmol/L Low 98 - 10 7 mmol/L [facility] Work Phone: CO2 [Moles/Vol] 29 mmol/L 22 - 30 mmol/L [facility] Work Phone: Creatinine [Mass/Vol] 2.21 mg/dL High 0.52 - 1.25 mg/dL [facility] Work Phone: EGFR IF NonAfrican Indian 26.9 mL/min Abnormal >60 [facility] Work Phone: Comment on above: KDIGO guidelines [...] 31.2 mL/min/{1.73_m2} Abnormal >60 [facility] Work Phone: [phone] Glucose [Mass/Vol] 116 mg/dL High 70 - 100 mg/dL [facility] Work Phone: [phone] Interpretation and review of laboratory results Abnormal [facility] Work Phone: [phone] Potassium [Moles/Vol] 3.1 mmol/L Low 3.5 - 5.1 mmol/L [facility] Work Phone: [phone] Sodium [Moles/Vol] 138 mmol/L 135 - 145 mmol/L [facility] Work Phone: [phone] Urea nitrogen [Mass/Vol] 41 mg/dL High 7 - 20 mg/d L [facility] Work Phone: [phone] Test Performed by [employer], [facility] [place] [address] [facility] Work Phone: [phone] Magnesiumon 09-15-2020 Magnesium [Mass/Vol] 1.7 mg/dL 1.6 - 2 .3 mg/dL [facility] Work Phone: [phone] Test Performed by [employer], [facility] [place] [address] [facility] Work Phone: [phone] Basic Metabolic Panel w/ Ref taz to MGon 09-14-2020 Anion gap [Moles/Vol] 11 mmol/L 3 - 13 mmol/L [facility] Work Phone: [phone] Calcium [Mass/Vol] 8.5 mg/dL 8.4 - 10. 4 mg/dL [facility] Work Phone: [phone] Chloride [Moles/Vol] 95 mmol/L Low 98 - 10 7 mmol/L [facility] Work Phone: [phone] CO2 [Moles/Vol] 29 mmol/L 22 - 30 mmol/L [facility] Work Phone: [phone] Creatinine [Mass/Vol] 2.12 mg/dL High 0.52 - 1.25 mg/dL [facility] Work Phone: [phone] EGFR IF NonAfrican Indian 28.3 mL/min Abnormal >60 [facility] Work Phone: [phone] Comment on above: KDIGO guidelines pro vide [...] (S/P/Bld) [Vol rate/Area] 32.8 mL/min/{1.73_m2} Abnormal >60 [employer] Work Phone: [phone] Glucose [Mass/Vol] 120 mg/dL High 70 - 100 mg/dL [employer] Work Phone: [phone] Interpretation and review of laboratory results Abnormal [employer] Work Phone: [phone] Potassium [Moles/Vol] 5.0 mmol/L 3.5 - 5.1 mmol/L [employer] Work Phone: [phone] Comment on above: Moderately hemolysed , interpret with caution. Sodium [Moles/Vol] 135 mmol/L 135 - 145 mmol/L [employer] Work Phone: [phone] Urea nitrogen [Mass/Vol] 43 mg/dL High 7 - 20 mg/d L [employer] Work Phone: [phone] Test Performed by [employer] [address] [employer] Work Phone: [phone] Anion gap [Moles/Vol] 9 mmol/L 3 - 13 mmol/L [employer] Work Phone: [phone] Calcium [Mass/Vol] 8.6 mg/dL 8.4 - 10. 4 mg/dL [employer] Work Phone: [phone] Chloride [Moles/Vol] 96 mmol/L Low 98 - 10 7 mmol/L [facility] Work Phone: [phone] CO2 [Moles/Vol] 29 mmol/L 22 - 30 mmol/L [facility] Work Phone: [phone] Creatinine [Mass/Vol] 2.53 mg/dL High 0.52 - 1.25 mg/dL [facility] Work Phone: [phone] EGFR IF NonAfrican Indian 22.8 mL/min Abnormal >60 [facility] Work Phone: [phone] Comment on above: KDIGO guidelines pro vide [...] (S/P/Bld) [Vol rate/Area] 26.5 mL/min/{1.73_m2} Abnormal >60 [facility] Work Phone: [phone] Glucose [Mass/Vol] 130 mg/dL High 70 - 100 mg/dL [facility] Work Phone: [phone] Interpretation and review of laboratory results Abnormal [facility] Work Phone: [phone] Potassium [Moles/Vol] 3.3 mmol/L Low 3.5 - 5.1 mmol/L [facility] Work Phone: [phone] Sodium [Moles/Vol] 135 mmol/L 135 - 145 mmol/L [facility] Work Phone: [phone] Urea nitrogen [Mass/Vol] 48 mg/dL High 7 - 20 mg/d L [facility] Work Phone: 1 Test Performed by [employer], [place] [address] [facility] Work Phone: CBCon 09-14-2020 Erythrocyte distribution width (RBC) [Ratio] 34.1 % High 11.5 - 14.5 % [facility] Work Phone: Hematocrit (Bld) [Volume fraction] 33.9 % Low 40 - 52 % [facility] Work Phone: Hemoglobin (Bld) [Mass/Vol] 10.6 g/dL Low 13 - 18 g/dL [facility] Work Phone: Interpretation and review of laboratory results Abnormal [facility] Work Phone: MCH (RBC) [Entitic mass] 25.0 pg Low 26 - [address] [facility] Work Phone: MCHC (RBC) [Mass/Vol] 31.4 % Low 32 - 36 % [facility] Work Phone: MCV (RBC) [Entitic vol] 79.8 fL Low 80 - 98 fL [facility] Work Phone: Platelet mean volume (Bld) [Entitic vol] 8.3 fL 7.4 - 10.[address] [facility] Work Phone: Platelets (Bld) [#/Vol] 225 10*3/uL 140 - 440 10*3/uL [facility] Work Phone: RBC (Bld) [#/Vol] 4.24 10*6/uL Low 4.4 - 5.9 10*6/uL [facility] Work Phone: WBC (Bld) [#/Vol] 5.4 10*3/uL 3.6 - 10.7 10*3/uL [facility] Work Phone: Test Performed by [employer], [place] [address] [facility] Work Phone: Erythrocyte distribution width (RBC) [Ratio] 34.2 % High 11.5 - 14.5 % [facility] Work Phone: Hematocrit (Bld) [Volume fraction] 32.3 % Low 40 - 52 % [facility] Work Phone: 1 Hemoglobin (Bld) [Mass/Vol] 10.1 g/dL Low 13 - 18 g/dL [facility] Work Phone: Interpretation and review of laboratory results Abnormal [facility] Work Phone: MCH (RBC) [Entitic mass] 25.1 pg Low 26 - 34 pg [facility] Work Phone: MCHC (RBC) [Mass/Vol] 31.1 % Low 32 - 36 % [facility] Work Phone: MCV (RBC) [Entitic vol] 80.7 fL 80 - 98 fL [facility] Work Phone: Platelet mean volume (Bld) [Entitic vol] 8.8 fL 7.4 - 10.[address] [facility] Work Phone: Platelets (Bld) [#/Vol] 230 10*3/uL 140 - 440 10*3/uL [facility] Work Phone: RBC (Bld) [#/Vol] 4.00 10*6/uL Low 4.4 - 5.9 10*6/uL [facility] Work Phone: WBC (Bld) [#/Vol] 6.0 10*3/uL 3.6 - 10.7 10*3/uL [facility] Work Phone: Test Performed by [employer], [facility] [place] [address] [facility] Work Phone: Magnesiumon 09-14-2020 Magnesium [Mass/Vol] 1.9 mg/dL 1.6 - 2 .3 mg/dL [facility] Work Phone: Comment on above: Moderately hemolysed , interpret with caution. Test Performed by [employer], [facility] [place] [address] [facility] Work Phone: Magnesium [Mass/Vol] 1.6 mg/dL 1.6 - 2 .3 mg/dL [facility] Work Phone: Test Performed by [facility], [address] [place] [address] [address] [facility] Work Phone: US RETROPERITONEAL COMPLETEo n 09-14-2020 Ch[place], [facility] Incoming Radiology Results From [facility] - 09/14/2020 2:49 PM EST Patient Name: MEGAN NASCIMENTO Ultrasound ACCESSION EXAM DATE/TIME PROCEDURE ORDERING PROVIDER [id number] 09/14/2020 12:50 EST US Retroperitoneal DIANA GO, CINDY LEIJA CPT code 51312 Reason For Exam (US Retroperitoneal Complete) r/o [...] RISA Transcribed Date and Time: 09/14/2020 2:45 [facility] Work Phone: Patient Name: MEGAN NASCIMENTO Ultrasound ACCESSION EXAM DATE/TIME PROCEDURE ORDERING PROVIDER [id number] 09/14/2020 12:50 EST US Retroperitoneal DIANA OG, CINDY LEIJA CPT code 55461 Reason For Exam (US Retroperitoneal Complete) r/o [...] RISA Transcribed Date and Time: 09/14/2020 2:45 [facility] Work Phone: BASIC METABOLIC PANELon 08-22 Anion gap [Moles/Vol] 13 mmol/L 3 - 13 mmol/L [facility] Work Phone: Calcium [Mass/Vol] 8.7 mg/dL 8.4 - 10. 4 mg/dL [facility] Work Phone: Chloride [Moles/Vol] 95 mmol/L Low 98 - 10 7 mmol/L [facility] Work Phone: CO2 [Moles/Vol] 27 mmol/L 22 - 30 mmol/L [facility] Work Phone: [phone] Creatinine [Mass/Vol] 3.08 mg/dL High 0.52 - 1.25 mg/dL [facility] Work Phone: EGFR IF NonAfrican Indian 18.0 mL/min Abnormal >60 [facility] Work Phone: [...] (S/P/Bld) [Vol rate/Area] 20.9 mL/min/{1.73_m2} Abnormal >60 [employer] Work Phone: Glucose [Mass/Vol] 146 mg/dL High 70 - 100 mg/dL [employer] Work Phone: Interpretation and review of laboratory results Abnormal [employer] Work Phone: Potassium [Moles/Vol] 4.1 mmol/L 3.5 - 5.1 mmol/L [employer] Work Phone: Sodium [Moles/Vol] 134 mmol/L Low 135 - 145 mmol/L [facility] Work Phone: Urea nitrogen [Mass/Vol] 47 mg/dL High 7 - 20 mg/d L [employer] Work Phone: EKG 12 Leadon 09-13-2020 [place]iam, [facility] Incoming Cardiology Results From [facility] - 09/13/2020 10:50 AM EST [facility] Test Date: 2020-09-12 Pat Name: eMgan Nascimento Department: 1A1C Room: 1323 Gender: M 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 : 1940 Requested By: GIBSON DUGAN Order Number: [id number] Catarino MD: Judith Diaz Measurements Intervals [place] Rate: 79 P: 18 NC: 167 QRS: 171 QRSD: 130 T: -23 QT: 470 QTc: 539 Interpretive Statements Atrial-sensed ventricular-paced rhythm Electronically Signed On 09-13-2020 10:49:15 EST by Judith Diaz [employer] Work Phone: [employer] Test Date: 2020-09-12 Pat Name: Megan Nascimento Department: [facility] Room: [facility] Gender: M 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 : 1940 Requested By: GIBSON DUGAN Order Number: [id number] Reading MD: Judith Diaz Measurements Intervals [place] Rate: 79 P: 18 NC: 167 QRS: 171 QRSD: 130 T: -23 QT: 470 QTc: 539 Interpretive Statements Atrial-sensed ventricular-paced rhythm Electronically Signed On 09-13-2020 10:49:15 EST by Judithrebeca Diaz [employer] Work Phone: Magnesiumon 09-13-2020 Magnesium [Mass/Vol] 1.6 mg/dL 1.6 - 2 .3 mg/dL [employer] Work Phone: Otheron 09-13-2020 Test Performed by [employer], [place] [address] [employer] Work Phone: Add On Lab Teston 09-12-2020 Sodium [Moles/Vol] Accepted [employer] Work Phone: Comment on above: Specimen available & acceptable for analysis. Test Performed by [employer], [place] [address] [employer] Work Phone: BASIC METABOLIC PANELon 08-22 Anion gap [Moles/Vol] 14 mmol/L High 3 - 13 mmol/L [facility] Work Phone: Calcium [Mass/Vol] 8.4 mg/dL 8.4 - 10. 4 mg/dL [facility] Work Phone: Chloride [Moles/Vol] 97 mmol/L Low 98 - 10 7 mmol/L [facility] Work Phone: CO2 [Moles/Vol] 26 mmol/L 22 - 30 mmol/L [facility] Work Phone: [phone] Creatinine [Mass/Vol] 2.56 mg/dL High 0.52 - 1.25 mg/dL [employer] Work Phone: [phone] EGFR IF NonAfrican Indian 22.5 mL/min Abnormal >60 [employer] Work Phone: [phone] Comment on above: KDIGO guidelines pro vide [...] (S/P/Bld) [Vol rate/Area] 26.1 mL/min/{1.73_m2} Abnormal >60 [employer] Work Phone: [phone] Glucose [Mass/Vol] 160 mg/dL High 70 - 100 mg/dL [employer] Work Phone: [phone] Interpretation and review of laboratory results Abnormal [employer] Work Phone: [phone] Potassium [Moles/Vol] 3.6 mmol/L 3.5 - 5.1 mmol/L [employer] Work Phone: [phone] Sodium [Moles/Vol] 137 mmol/L 135 - 145 mmol/L [employer] Work Phone: [phone] Urea nitrogen [Mass/Vol] 40 mg/dL High 7 - 20 mg/d L [employer] Work Phone: [phone] Test Performed by [employer], [address] [place] [address] [employer] Work Phone: [phone] Brain Natriuretic Peptideon 09-12-2020 Interpretation and review of laboratory results Abnormal [employer] Work Phone: 1 Natriuretic peptide B (Bld) [Mass/Vol] 21543 pg/mL High 0 - 450 pg/mL [employer] Work Phone: 1 Test Performed by [employer], [address] [place] [address] [employer] Work Phone: CBC Auto Differentialon 08-22 Absolute Baso # 0.0 10*3/uL 0 - 0.2 10*3/uL [facility] Work Phone: 1 Absolute Neut # 3.0 10*3/uL 1.8 - 7 10*3/uL [employer] Work Phone: Basophils/100 WBC (Bld) 0.5 % 0 - 2 % S [facility] Work Phone: Eosinophils (Bld) [#/Vol] 0.0 10*3/uL 0 - 0.5 10*3/uL [employer] Work Phone: 1 Eosinophils/100 WBC (Bld) 0.0 % Low 1 - 6 % [employer] Work Phone: Erythrocyte distribution width (RBC) [Ratio] 34.0 % High 11.5 - 14.5 % [employer] Work Phone: Granulocytes/100 WBC (Bld) 77.3 % 40 - 80 % [employer] Work Phone: Hematocrit (Bld) [Volume fraction] 33.1 % Low 40 - 52 % [employer] Work Phone: Hemoglobin (Bld) [Mass/Vol] 10.2 g/dL Low 13 - 18 g/dL [employer] Work Phone: Interpretation and review of laboratory results Abnormal [employer] Work Phone: Lymphocytes (Bld) [#/Vol] 0.7 10*3/uL Low 1 - 4.3 10*3/uL [facility] Work Phone: Lymphocytes/100 WBC (Bld) 17.3 % Low 20 - 40 % [employer] Work Phone: MCH (RBC) [Entitic mass] 24.8 pg Low 26 - 34 pg [facility] Work Phone: 1 MCHC (RBC) [Mass/Vol] 30.8 % Low 32 - 36 % [facility] Work Phone: 1 MCV (RBC) [Entitic vol] 80.5 fL 80 - 98 fL S [facility] Work Phone: Monocytes (Bld) [#/Vol] 0.2 10*3/uL 0 - 0.8 10*3/uL [facility] Work Phone: Monocytes/100 WBC (Bld) 4.9 % 2 - 10 % [facility] Work Phone: Platelet mean volume (Bld) [Entitic vol] 8.9 fL 7.4 - 10.[address] [facility] Work Phone: 1 Platelets (Bld) [#/Vol] 276 10*3/uL 140 - 440 10*3/uL [facility] Work Phone: RBC (Bld) [#/Vol] 4.11 10*6/uL Low 4.4 - 5.9 10*6/uL [facility] Work Phone: WBC (Bld) [#/Vol] 3.9 10*3/uL 3.6 - 10.7 10*3/uL [facility] Work Phone: 1 Test [place] [address] [facility] Work Phone: Lactic Acid, Plasmaon 2020 Lactate [Moles/Vol] 1.8 mmol/L 0.7 - 2 mmol/L [facility] Work Phone: Test Performed by [employer] [facility] [place] [address] [facility] Work Phone: Interpretation and review of laboratory results Abnormal [facility] Work Phone: 1 Lactate [Moles/Vol] 2.6 mmol/L Critically high 0.7 - 2 mmol/L [facility] Work Phone: Test Performed by [employer] [address] [place] [id number] [facility] Work Phone: [phone] Interpretation and review of laboratory results Abnormal [facility] Work Phone: [phone] Lactate [Moles/Vol] 2.8 mmol/L Critically high 0.7 - 2 mmol/L [facility] Work Phone: [phone] Test Performed by [employer], [address] [place] [address] [facility] Work Phone: [phone] Metabolic Panelon 09-12-2020 Sodium [Moles/Vol] Slight [facility] Work Phone: [phone] MORPHOLOGYon 09-12-2020 Anisocytosis Ql (Bld) Slight [facility] Work Phone: [phone] RBC morphology finding Nom (Bld) ABNORMAL [facility] Work Phone: [phone] Test Performed by [employer], [address] [place] [address] [facility] Work Phone: [phone] XR CHEST (2 VW)on 09-12-2020 Patient Name: MEGAN NASCIMENTO Diagnostic Radiology ACCESSION EXAM DATE/TIME PROCEDURE ORDERING PROVIDER [id number] 09/12/2020 09:53 EST CR Chest PA & LAT MD SMITH LORI CPT code 59909 Reason For Exam (CR Chest PA & [...] LAURA Transcribed Date and Time: 09/12/2020 10:00 [facility] Work Phone: [place]aim, [facility] Incoming Radiology Results From [facility] - 09/12/2020 10:03 AM EST Patient Name: MEGAN NASCIMENTO Diagnostic Radiology ACCESSION EXAM DATE/TIME PROCEDURE ORDERING PROVIDER [id number] 09/12/2020 09:53 EST CR Chest PA & LAT MD LUIS, MARCELA CPT code 84082 Reason For Exam (CR Chest PA & [...] LAURA Transcribed Date and Time: 09/12/2020 10:00 [facility] Work Phone: CT Abdomen Pelvis Wo Contras ton 09-05-2020 Patient Name: MEGAN NASCIMENTO Computed Tomography ACCESSION EXAM DATE/TIME PROCEDURE ORDERING PROVIDER [id number] 09/05/2020 22:[address] Abdomen/Pelvis (No [id number] -LENCHO, J PO, No IV) CPT code 14591 Reason For Exam (CT Abdomen/Pelvis (No PO, [...] Phone: [facility], [facility] Incoming Radiology Results From [facility] - 09/05/2020 10:43 PM EST Patient Name: MEGAN NASCIMENTO Computed Tomography ACCESSION EXAM DATE/TIME PROCEDURE ORDERING PROVIDER [id number] 09/05/2020 22:[address] Abdomen/Pelvis (No [id number] -Shamika GLASGOW PO, No IV) CPT code 76011 Reason For Exam (CT Abdomen/Pelvis (No PO, [...] Tomography ACCESSION EXAM DATE/TIME PROCEDURE ORDERING PROVIDER [id number] 09/05/2020 22:[address] Abdomen/Pelvis (No [id number] -Shamika GLASGOW PO, No IV) CPT code 75630 Reason For Exam (CT Abdomen/Pelvis (No PO, [...] Transcribed Date and Time: 09/05/2020 10:43 Normal [facility] Comp Metabolic Panelon 09-05 ALP [Catalytic activity/Vol] 107 U/L Normal 38-126 [facility] Comment on above: Performed By: #### B NP3, TROPN, BMP3, HEMDF #### [facility] [address] [place] [address] ALT [Catalytic activity/Vol] 43 U/L Normal 0-49 [facility] Comment on above: Result Comment: The ALT test is performed by an updated assay method. Please note that the reference intervals have been changed and are now sex specific. Performed By: #### B NP3, TROPN, BMP3, HEMDF #### [facility] Seer [facility] [address] [place] [address] Calcium [Mass/Vol] 8.9 mg/dL Normal 8.4-10.4 [facility] Comment on above: Performed By: #### B NP3, TROPN, BMP3, HEMDF #### [facility] [address] [place] [address] Glucose [Mass/Vol] 130 mg/dL High 70-100 [facility] Comment on above: Performed By: #### B NP3, TROPN, BMP3, HEMDF #### [facility] [address] [place] [address] Protein [Mass/Vol] 7.1 g/dL Normal 6.3-8.2 [facility] Comment on above: Performed By: #### B NP3, TROPN, BMP3, HEMDF #### [facility] [address] [place] [address] Urea nitrogen [Mass/Vol] 39 mg/dL High 7-20 [facility] Comment on above: Performed By: #### B NP3, TROPN, BMP3, HEMDF #### [facility] [address] [place] [address] Anion gap [Moles/Vol] 15 mmol/L High 3-13 [facility] Comment on above: Performed By: #### B NP3, TROPN, BMP3, HEMDF #### [facility] [address] [place] [address] AST [Catalytic activity/Vol] 84 U/L High 15-46 [facility] Comment on above: Performed By: #### B NP3, TROPN, BMP3, HEMDF #### [facility] [address] [place] [address] Bilirubin [Mass/Vol] 1.9 mg/dL High 0.2-1.3 [facility] Comment on above: Performed By: #### B NP3, TROPN, BMP3, HEMDF #### [facility] [address] [place] [address] CO2 [Moles/Vol] 30 mmol/L Normal 22-30 [facility] Comment on above: Performed By: #### B NP3, TROPN, BMP3, HEMDF #### [facility] [address] [place] [address] Creatinine [Mass/Vol] 2.73 mg/dL High 0.52-1.25 [facility] Comment on above: Performed By: #### B NP3, TROPN, BMP3, HEMDF #### [facility] [address] [place] [address] GFR/1.73 sq M.predicted among blacks MDRD (S/P/Bld) [Vol rate/Area] 24.1 mL/min/{1.73_m2} Abnormal >60 [facility] Comment on above: Performed By: #### B NP3, TROPN, BMP3, HEMDF #### [facility] [address] [place] [address] GFR/1.73 sq M.predicted among non-blacks MDRD (S/P/Bld) [Vol rate/Area] 20.8 mL/min/{1.73_m2} Abnormal >60 [facility] Comment on above: Result Comment: KDIG [...] #### B NP3, TROPN, BMP3, HEMDF #### [facility] [address] [place] [address] Chloride [Moles/Vol] 97 mmol/L Low 98-107 [facility] Comment on above: Performed By: #### B NP3, TROPN, BMP3, HEMDF #### [facility] [address] [place] [address] Potassium [Moles/Vol] 3.9 mmol/L Normal 3.5-5.1 [facility] Comment on above: Performed By: #### B NP3, TROPN, BMP3, HEMDF #### [facility] [address] [place] [address] Sodium [Moles/Vol] 141 mmol/L Normal 135-145 [facility] Comment on above: Performed By: #### B NP3, TROPN, BMP3, HEMDF #### [facility] [address] [place] [address] Albumin [Mass/Vol] 4.3 g/dL Normal 3.5-5.0 [facility] Comment on above: Performed By: #### B NP3, TROPN, BMP3, HEMDF #### [facility] [address] [place] [address] Complete Urinalysison 2020 Appearance (U) Clear Normal Clear [facility] Comment on above: Result Comment: . Performed By: #### B NP3, TROPN, BMP3, HEMDF #### [facility] [address] [place] [address] Bacteria Few Abnormal Negative [facility] Comment on above: Result Comment: . Performed By: #### B NP3, TROPN, BMP3, HEMDF #### [facility] [address] [place] [address] Bilirubin,Urine Negative Normal Negative [facility] Comment on above: Result Comment: . Performed By: #### B NP3, TROPN, BMP3, HEMDF #### [facility] [address] [place] [address] Cast, Hyaline 26 - 50 Abnormal Negative [facility] Comment on above: Result Comment: . Performed By: #### B NP3, TROPN, BMP3, HEMDF #### [facility] [address] [place] [address] Color (U) Dark-Yellow Abnormal Lt. Yellow [facility] Comment on above: Result Comment: . Performed By: #### B NP3, TROPN, BMP3, HEMDF #### [facility] [address] [place] [address] Glucose Ql (U) Normal Normal Normal (<70) [facility] Comment on above: Result Comment: . Performed By: #### B NP3, TROPN, BMP3, HEMDF #### [facility] [address] [place] [address] Ketone,Urine Negative Normal Negative [facility] Comment on above: Result Comment: . Performed By: #### B NP3, TROPN, BMP3, HEMDF #### [facility] [address] [place] [address] Leukocytes,Urine Negative Normal Negative [facility] Comment on above: Result Comment: . Performed By: #### B NP3, TROPN, BMP3, HEMDF #### [facility] [address] [place] [address] Mucous Threads Few Normal Negative [facility] Comment on above: Result Comment: . Performed By: #### B NP3, TROPN, BMP3, HEMDF #### [facility] [address] [place] [address] Nitrites,Urine Negative Normal Negative [facility] Comment on above: Result Comment: . Performed By: #### B NP3, TROPN, BMP3, HEMDF #### [facility] [address] [place] [address] Non-Squamous Epithelial < 1 Abnormal Negative S [facility] Comment on above: Result Comment: . Performed By: #### B NP3, TROPN, BMP3, HEMDF #### [facility] [address] [place] [address] Occult Blood,Urine Negative Normal Negative [facility] Comment on above: Result Comment: . Performed By: #### B NP3, TROPN, BMP3, HEMDF #### [facility] [address] [place] [address] pH,Urine 5.0 Normal 5.0-8.0 [facility] Comment on above: Result Comment: . Performed By: #### B NP3, TROPN, BMP3, HEMDF #### [facility] [address] [place] [address] Protein (U) [Mass/Vol] 30 mg/dL Abnormal Negative [facility] Comment on above: Result Comment: . Performed By: #### B NP3, TROPN, BMP3, HEMDF #### [facility] [address] [place] [address] RBC, Urine 0 - 2 Normal 0-2 [facility] Comment on above: Result Comment: . Performed By: #### B NP3, TROPN, BMP3, HEMDF #### [facility] [address] [place] [address] Specific Clarks,Urine 1.018 Normal 1.005 - 1.030 [facility] Comment on above: Result Comment: . Performed By: #### B NP3, TROPN, BMP3, HEMDF #### [facility] [address] [place] [address] Squamous Epithelial 0 - 2 Normal 3-5 [facility] Comment on above: Result Comment: . Performed By: #### B NP3, TROPN, BMP3, HEMDF #### [facility] [address] [place] [address] Urobilinogen,Urine 2 mg/dL Abnormal Normal (0-1) [facility] Comment on above: Result Comment: . Performed By: #### B NP3, TROPN, BMP3, HEMDF #### [facility] [address] [place] [address] WBC, Urine 3 - 5 Normal 0-5 [facility] Comment on above: Result Comment: Conf irmed by light microscopy. . Performed By: #### B NP3, TROPN, BMP3, HEMDF #### [facility] [address] [place] [address] Comprehensive Metabolic Pane greg 09-05-2020 Albumin [Mass/Vol] 4.3 g/dL 3.5 - 5 g/dL [facility] Work Phone: [phone] ALP [Catalytic activity/Vol] 107 U/L 38 - 126 U/L [facility] Work Phone: ALT [Catalytic activity/Vol] 43 U/L 0 - 49 U/L [facility] Work Phone: [phone] Comment on above: The ALT test is perf ormed by an updated assay method. Please note that the reference intervals have been changed and are now sex specific. Anion gap [Moles/Vol] 15 mmol/L High 3 - 13 mmol/L [facility] Work Phone: [phone] AST [Catalytic activity/Vol] 84 U/L High 15 - 46 U/L [facility] Work Phone: [phone] Bilirubin Ql (U) 1.9 mg/dL High 0.2 - 1.3 mg/dL [facility] Work Phone: Calcium [Mass/Vol] 8.9 mg/dL 8.4 - 10. 4 mg/dL [facility] Work Phone: Chloride [Moles/Vol] 97 mmol/L Low 98 - 10 7 mmol/L [facility] Work Phone: CO2 [Moles/Vol] 30 mmol/L 22 - 30 mmol/L [facility] Work Phone: [phone] Creatinine [Mass/Vol] 2.73 mg/dL High 0.52 - 1.25 mg/dL [facility] Work Phone: EGFR IF NonAfrican Indian 20.8 mL/min Abnormal >60 [facility] Work Phone: [...] results Abnormal [facility] Work Phone: Potassium [Moles/Vol] 3.9 mmol/L 3.5 - 5.1 mmol/L [facility] Work Phone: [phone] Protein [Mass/Vol] 7.1 g/dL 6.3 - 8.2 g/dL [facility] Work Phone: Sodium [Moles/Vol] 141 mmol/L 135 - 145 mmol/L [facility] Work Phone: [phone] Urea nitrogen [Mass/Vol] 39 mg/dL High 7 - 20 mg/d L [facility] Work Phone: ED Provider Noteon 1 ED [...] patient come from an ECF, SNF, Rehab, Snf or other Congregate setting: no (If yes [...] on phone: None Gets together: None Attends islam service: None Active member of club or [...] 114/75 97.3 (more content not included)... Normal [facility] Hemogramon 09-05-2020 Erythrocyte distribution width (RBC) [Ratio] 32.9 % High 11.5-14.5 [facility] Comment on above: Performed By: #### B NP3, TROPN, BMP3, HEMDF #### [facility] [address] [place] [address] Hematocrit (Bld) [Volume fraction] 34.6 % Low 40.0-52.0 [facility] Comment on above: Performed By: #### B NP3, TROPN, BMP3, HEMDF #### [facility] [address] [place] [address] Hemoglobin (Bld) [Mass/Vol] 10.8 g/dL Low 13.0-18.0 [facility] Comment on above: Performed By: #### B NP3, TROPN, BMP3, HEMDF #### [facility] [address] [place] [address] MCH (RBC) [Entitic mass] 23.7 pg Low 26.0-34.0 [facility] Comment on above: Performed By: #### B NP3, TROPN, BMP3, HEMDF #### [facility] [address] [place] [address] MCHC 31.1 % Low 32.0-36.0 [facility] Comment on above: Performed By: #### B NP3, TROPN, BMP3, HEMDF #### [facility] [address] [place] [address] MCV (RBC) [Entitic vol] 76.2 fL Low 80.0-98.0 S [facility] Comment on above: Performed By: #### B NP3, TROPN, BMP3, HEMDF #### [facility] [address] [place] [address] Platelet mean volume (Bld) [Entitic vol] 8.5 fL Normal 7.4-10.4 [facility] Comment on above: Performed By: #### B NP3, TROPN, BMP3, HEMDF #### [facility] [address] [place] [address] Platelets (Bld) [#/Vol] 359 10*3/uL Normal 140-440 [facility] Comment on above: Performed By: #### B NP3, TROPN, BMP3, HEMDF #### [facility] [address] [place] [address] RBC (Bld) [#/Vol] 4.54 10*6/uL Normal 4.40-5.90 [facility] Comment on above: Performed By: #### B NP3, TROPN, BMP3, HEMDF #### [facility] [address] [place] [address] WBC (Bld) [#/Vol] 6.5 10*3/uL Normal 3.6-10.7 [facility] Comment on above: Performed By: #### B NP3, TROPN, BMP3, HEMDF #### [facility] [address] [place] [address] Hemogram (CBC)on 09-05-2020 Erythrocyte distribution width (RBC) [Ratio] 32.9 % High 11.5 - 14.5 % [facility] Work Phone: [phone] Hematocrit (Bld) [Volume fraction] 34.6 % Low 40 - 52 % [facility] Work Phone: [phone] Hemoglobin (Bld) [Mass/Vol] 10.8 g/dL Low 13 - 18 g/dL [facility] Work Phone: [phone] Interpretation and review of laboratory results Abnormal [facility] Work Phone: [phone] MCH (RBC) [Entitic mass] 23.7 pg Low 26 - [address] [facility] Work Phone: [phone] MCHC (RBC) [Mass/Vol] 31.1 % Low 32 - 36 % [facility] Work Phone: [phone] MCV (RBC) [Entitic vol] 76.2 fL Low 80 - 98 fL S [facility] Work Phone: [phone] Platelet mean volume (Bld) [Entitic vol] 8.5 fL 7.4 - 10.4 fL [facility] Work Phone: [phone] Platelets (Bld) [#/Vol] 359 10*3/uL 140 - 440 10*3/uL [facility] Work Phone: [phone] RBC (Bld) [#/Vol] 4.54 10*6/uL 4.4 - 5.9 10*6/uL [facility] Work Phone: [phone] WBC (Bld) [#/Vol] 6.5 10*3/uL 3.6 - 10.7 10*3/uL [facility] Work Phone: [phone] Test Performed by [employer], [address] [place], [place] [address] [employer] Work Phone: [phone] Lipaseon 09-05-2020 Lipase [Catalytic activity/Vol] 117 U/L Normal 23-300 [employer] [facility] Comment on above: Performed By: #### B NP3, TROPN, BMP3, HEMDF #### [employer] [address] [place] [address] Lipase [Catalytic activity/Vol] 117 U/L 23 - 300 U/L [employer] Work Phone: [phone] Otheron 09-05-2020 Test Performed by [employer], [address] [place], [place] [address] [employer] Work Phone: [phone] US ABDOMEN LIMITED Specify o rgan? GALLBLADDERon 09-05-2020 Patient Name: MEGAN NASCIMENTO Ultrasound ACCESSION EXAM DATE/TIME PROCEDURE ORDERING PROVIDER [id number] 09/05/2020 22:05 EST US Abdomen Limited [id number] Shamika NAGY CPT code 46509 Reason For Exam (US Abdomen Limited) RUQ [...] Time: 09/05/2020 10:46 [facility] Work Phone: [facility], [facility] Incoming Radiology Results From [facility] - 09/05/2020 10:46 PM EST Patient Name: MEGAN NASCIMENTO Ultrasound ACCESSION EXAM DATE/TIME PROCEDURE ORDERING PROVIDER [id number] 09/05/2020 22:05 EST US Abdomen Limited [id number] Shamika NAGY CPT code 69055 Reason For Exam (US Abdomen Limited) RUQ [...] Ultrasound ACCESSION EXAM DATE/TIME PROCEDURE ORDERING PROVIDER [id number] 09/05/2020 22:05 EST US Abdomen Limited [id number] -TANVIKEILAShamika CPT code 62633 Reason For Exam (US Abdomen Limited) RUQ [...] Time: 09/05/2020 10:45 pm Signed by: MD JAMES, DAGMAR Klein Transcribed Date and Time: 09/05/2020 10:46 Normal [facility] Urinalysison 09-05-2020 Appearance (U) Clear Clear NA [facility] Work Phone: [phone] Comment on above: . Bacteria, UA Few Abnormal Negative /[HPF] [facility] Work Phone: [phone] Comment on above: . Bilirubin Urine Negative Negative mg/dL [facility] Work Phone: [phone] Comment on above: . Color (U) Dark-Yellow Abnormal Lt. Yellow NA [facility] Work Phone: [phone] Comment on above: . Glucose, Ur Normal Normal (<70) mg/dL [facility] Work Phone: [phone] Comment on above: . Hyaline Casts, UA 26-50 Abnormal Negative /[LPF] [facility] Work Phone: [phone] Comment on above: . Interpretation and review of laboratory results Abnormal [facility] Work Phone: [phone] Ketones Ql (U) Negative Negative mg/dL [facility] Work Phone: [phone] Comment on above: . LEUKOCYTES, UA Negative Negative Sp/uL [facility] Work Phone: [phone] Comment on above: . Mucous Threads Few Negative /[LPF] [facility] Work Phone: [phone] Comment on above: . Nitrite, Urine Negative Negative NA [facility] Work Phone: [phone] Comment on above: . Non-Squamous Epithelial <1 Abnormal Nega tive /[HPF] [facility] Work Phone: [phone] Comment on above: . Occult Blood,Urine Negative Negative mg/dL [facility] Work Phone: [phone] Comment on above: . pH (U) 5.0 [pH] [facility] Work Phone: [phone] Comment on above: . Protein (U) [Mass/Vol] 30 mg/dL Abnormal Negative [facility] Work Phone: [phone] Comment on above: . RBC (U) [#/Vol] 0-2 0 - 2 /[HPF] [facility] Work Phone: [phone] Comment on above: . Specific Clarks, Urine 1.018 S [facility] Work Phone: Comment on above: . Squam Epithel, UA 0-2 3 - 5 /[HPF] [employer] Work Phone: [phone] Comment on above: . Urobilinogen, Urine 2 mg/dL Abnormal Normal (0-1) [employer] Work Phone: Comment on above: . WBC, UA 3-5 0 - 5 /[HPF] [employer] Work Phone: Comment on above: Confirmed by light m icroscopy. . Test Performed by [employer] [facility], [address] [place], [place] [address] [employer] Work Phone: Echo 2D Doppler Coloron TRANSTHORACIC ECHOCARDIOGRAM PATIENT: Megan Nascimento STUDY DATE: 08/23/2020 : 1940 AGE: 80 HT/WT: 172.7 cm (68 85.7 kg in) (188.6 lb) GENDER: M BP: 103 / 48 LOCATION: [facility] PATIENT Outpatient [facility] STATUS: *ORDERING PHYSICIAN: * Ralph Roth MD *READING PHYSICIAN: * Zoë, *GAS STATION CASHIER: * Shirin Sim CS,AE, PE, RVT INDICATIONS: SOB. CONCLUSIONS SUMMARY: 1. [...] by Chiquis Camp 08/23/2020 17:30 Prior Signatures: [facility], [place] Chaim, [facility] Incoming Cardiology Results From [facility] - 08/23/2020 5:31 PM EST TRANSTHORACIC ECHOCARDIOGRAM PATIENT: Megan Nascimento STUDY DATE: 08/23/2020 : 1940 AGE: 80 HT/WT: 172.7 cm (68 85.7 kg in) (188.6 lb) GENDER: M BP: 103 / 48 LOCATION: [facility] PATIENT Outpatient [facility] STATUS: *ORDERING PHYSICIAN: * Ralph Roth MD *READING PHYSICIAN: * Zoë, *GAS STATION CASHIER: * Shirin Sim RDCS,AE, PE, RVT INDICATIONS: [...] by Chiquis Camp 08/23/2020 17:30 [facility] Signatures[facility] Echo Complete w/wo Contrasto n 08-23-2020 Echo Complete w/wo Contrast Patient Name: MEGAN NASCIMENTO Ultrasound ACCESSION EXAM DATE/TIME PROCEDURE ORDERING PROVIDER [id number] 08/23/2020 15:09 EST Echo Complete w/wo RALPH ROTH Contrast Reason For Exam (Echo Complete w/wo Contrast) sob Report TRANSTHORACIC ECHOCARDIOGRAM PATIENT: Megan Nascimento STUDY DATE: 08/23/2020 : 1940 AGE: 80 HT/WT: 172.7 cm (68 85.7 kg in) (188.6 lb) GENDER: M BP: 103 / 48 LOCATION: [facility] PATIENT Outpatient [facility] STATUS: *ORDERING PHYSICIAN: * Ralph Roth MD *READING PHYSICIAN: * Zoë, *GAS STATION CASHIER: * Shirin Sim RDCS,AE, PE, RVT INDICATIONS: [...] [address] St (more content not included)... Normal [facility] Basic Metabolic Panelon 12-0 Anion gap [Moles/Vol] 10 mmol/L [place] Calcium [Mass/Vol] 8.9 mg/dL 8.4 - 10. 4 mg/dL [place], [place] Chloride [Moles/Vol] 96 mmol/L Low 98 - 10 7 mmol/L [place] CO2 [Moles/Vol] 30 mmol/L 22 - 30 mmol/L [place] Creatinine [Mass/Vol] 1.51 mg/dL High 0.52 - 1.25 mg/dL [place] EGFR IF NonAfrican Indian 42.7 mL/min Abnormal >60 [place] Comment on above: KDIGO guidelines pro [...] (S/P/Bld) [Vol rate/Area] 49.5 mL/min/{1.73_m2} Abnormal >60 [place] Glucose [Mass/Vol] 111 mg/dL High 70 - 100 mg/dL [place] Interpretation and review of laboratory results Abnormal [place] Potassium [Moles/Vol] 3.7 mmol/L 3.5 - 5.1 mmol/L [place] Sodium [Moles/Vol] 136 mmol/L 135 - 145 mmol/L [place] Urea nitrogen [Mass/Vol] 39 mg/dL High 7 - 20 mg/d L [place] Test Performed by [facility], [address] [place] [id number] [place], [place] CBCon 06-27-2020 Erythrocyte distribution width (RBC) [Ratio] 18.5 % High 11.5 - 14.5 % [place] Hematocrit (Bld) [Volume fraction] 31.1 % Low 40 - 52 % [place] Hemoglobin (Bld) [Mass/Vol] 9.6 g/dL Low 13 - 18 g/dL [place] Interpretation and review of laboratory results Abnormal [place] MCH (RBC) [Entitic mass] 23.2 pg Low 26 - 34 pg [place] MCHC (RBC) [Mass/Vol] 30.7 % Low 32 - 36 % [place] MCV (RBC) [Entitic vol] 75.4 fL Low 80 - 98 fL [place] Platelet mean volume (Bld) [Entitic vol] 8.1 fL 7.4 - 10.4 fL [place] Platelets (Bld) [#/Vol] 317 10*3/uL 140 - 440 10*3/uL [place] RBC (Bld) [#/Vol] 4.13 10*6/uL Low 4.4 - 5.9 10*6/uL [place] WBC (Bld) [#/Vol] 8.0 10*3/uL 3.6 - 10.7 10*3/uL [place] Test Performed by [facility] [address] [address] [place], [place] Vital Signs Date Time Vital Sign Value Performing Clinician Facility 04-05-2025 14:00-0400 Diastolic blood pressure 66 mm[Hg] Dr. Rigoberto Durand MD Work Phone: [facility] 04-05-2025 14:00-0400 Heart rate 68 /min Dr. Rigoberto Durand MD Work Phone: [facility] 04-05-2025 14:00-0400 Respiratory rate 16 /min Dr. Rigoberto Durand MD Work Phone: [facility] 04-05-2025 14:00-0400 SaO2% (BldA) [Mass fraction] 97 % Dr. Rigoberto Durand MD Work Phone: [facility] 04-05-2025 14:00-0400 Systolic blood pressure 121 mm[Hg] Dr. Rigoberto Durand MD Work Phone: [phone] [address] 04-05-2025 01:49-0400 Body temperature 97.9 [degF] Dr. Rigoberto Durand MD Work Phone: [phone] [address] 04-04-2025 23:54-0400 Body height [address] Rigoberto Durand MD Work Phone: [phone] [address] 04-04-2025 23:54-0400 Body mass index (BMI) [Ratio] 29.7 kg/m2 Dr. Rigoberto Durand MD Work Phone: [phone] [address] 04-04-2025 23:54-0400 Body weight 85.[address] Rigoberto Durand MD Work Phone: [facility] 04-01-2025 16:00-0400 Diastolic blood pressure 81 mm[Hg] Dr. Rigoberto Durand MD Work Phone: [facility] 04-01-2025 16:00-0400 Heart rate 60 /min Dr. Rigoberto Duarnd MD Work Phone: [facility] 04-01-2025 16:00-0400 SaO2% (BldA) [Mass fraction] 95 % Dr. Rigoberto Durand MD Work Phone: [facility] 04-01-2025 16:00-0400 Systolic blood pressure 128 mm[Hg] Dr. Rigoberto Durand MD Work Phone: [facility] 04-01-2025 15:53-0400 Body temperature 97.5 [degF] Dr. Rigoberto Durand MD Work Phone: [facility] 04-01-2025 15:53-0400 Respiratory rate 21 /min Dr. Rigoberto Durand MD Work Phone: [facility] 04-01-2025 12:34-0400 Body height 170.[address] Rigoberto Durand MD Work Phone: [facility] 04-01-2025 12:34-0400 Body mass index (BMI) [Ratio] 30.7 kg/m2 Dr. Rigoberto Durand MD Work Phone: [facility] 04-01-2025 12:34-0400 Body weight 89.[address] Rigoberto Durand MD Work Phone: [facility] 03-03-2025 14:19-0400 Body height 170.2 cm Petra Renteria OFFICE RN - TUBE DRAW HELPER Work Phone: [facility] 03-03-2025 14:19-0400 Body mass index (BMI) [Ratio] 28.66 kg/m2 Petra Dexter OFFICE RN - TUBE D[employer]PER Work Phone: [facility] 03-03-2025 14:19-0400 Body weight 83.01 kg Petra Durank OFFICE RN - TUBE DRAW HELPER Work Phone: [facility] 03-03-2025 14:19-0400 Diastolic blood pressure 64 mm[Hg] Petra Dexter OFFICE RN - TUBE D[employer]PER Work Phone: [facility] 03-03-2025 14:19-0400 Heart rate 60 /min Petra Dexter OFFICE RN - TUBE D[employer]PER Work Phone: [facility] 03-03-2025 14:19-0400 SaO2% (BldA) [Mass fraction] 100 % Petra Dexter OFFICE RN - TUBE DRAW HELPER Work Phone: [facility] 03-03-2025 14:19-0400 Systolic blood pressure 92 mm[Hg] Petra Dexter OFFICE RN - TUBE DRAW HELPER Work Phone: [facility] 02-15-2025 08:08-0400 Body temperature 96.3 [degF] Latricia Landa DO Work Phone: [facility] 02-15-2025 08:08-0400 Diastolic blood pressure 76 mm[Hg] Latricia Landa DO Work Phone: [facility] 02-15-2025 08:08-0400 Heart rate 83 /min Latricia Landa DO Work Phone: [facility] 02-15-2025 08:08-0400 Respiratory rate 18 /min Latricia Landa DO Work Phone: [facility] 02-15-2025 08:08-0400 SaO2% (BldA) [Mass fraction] 97 % Latricia Landa DO Work Phone: [facility] 02-15-2025 08:08-0400 Systolic blood pressure 137 mm[Hg] Latricia Landa DO Work Phone: [facility] 02-12-2025 08:18-0400 Body height 170.2 cm Latricia Landa DO Work Phone: [facility] 02-10-2025 12:06-0400 Body mass index (BMI) [Ratio] 28.51 kg/m2 Latricia Landa DO Work Phone: [facility] 02-10-2025 12:06-0400 Body weight 82.56 kg Latricia Landa DO Work Phone: [facility] 02-01-2025 15:24-0400 Body temperature 97 [degF] Latricia Landa DO Work Phone: [facility] 02-01-2025 15:24-0400 Diastolic blood pressure 75 mm[Hg] Latricia Landa DO Work Phone: [facility] 02-01-2025 15:24-0400 Heart rate 79 /min Latricia Landa DO Work Phone: [facility] 02-01-2025 15:24-0400 Respiratory rate 18 /min Latricia Landa DO Work Phone: [facility] 02-01-2025 15:24-0400 SaO2% (BldA) [Mass fraction] 97 % Latricia Landa DO Work Phone: [facility] 02-01-2025 15:24-0400 Systolic blood pressure 122 mm[Hg] Latricia Landa DO Work Phone: [facility] 02-01-2025 02:16-0400 Body mass index (BMI) [Ratio] 29.23 kg/m2 Latricia Landa DO Work Phone: [facility] 02-01-2025 02:16-0400 Body weight 84.64 kg Latricia Landa DO Work Phone: [facility] 01-31-2025 11:14-0400 Body height 170.2 cm Latricia Landa DO Work Phone: [facility] 01-26-2025 15:46-0400 Body height 170.2 cm Ralph Roth MD Work Phone: [facility] 01-26-2025 15:46-0400 Body mass index (BMI) [Ratio] 30.48 kg/m2 Ralph Roth MD Work Phone: [facility] 01-26-2025 15:46-0400 Body weight 88.27 kg Ralph Roth MD Work Phone: [facility] 01-26-2025 15:46-0400 Diastolic blood pressure 80 mm[Hg] Ralph Roth MD Work Phone: [facility] 01-26-2025 15:46-0400 Heart rate 79 /min Ralph Roth MD Work Phone: [facility] 01-26-2025 15:46-0400 SaO2% (BldA) [Mass fraction] 100 % Ralph Roth MD Work Phone: [facility] 01-26-2025 15:46-0400 Systolic blood pressure 124 mm[Hg] Ralph Roth MD Work Phone: [facility] 12-12-2024 15:03-0400 Body temperature 98 [degF] Dr. Rigoberto Durand MD Work Phone: [facility] 12-12-2024 15:03-0400 Diastolic blood pressure 77 mm[Hg] Dr. Rigoberto Durand MD Work Phone: [facility] 12-12-2024 15:03-0400 Heart rate 71 /min Dr. Rigoberto Durand MD Work Phone: [facility] 12-12-2024 15:03-0400 Respiratory rate 19 /min Dr. Rigoberto Durand MD Work Phone: [facility] 12-12-2024 15:03-0400 SaO2% (BldA) [Mass fraction] 95 % Dr. Rigoberto Durand MD Work Phone: [facility] 12-12-2024 15:03-0400 Systolic blood pressure 138 mm[Hg] Dr. Rigoberto Durand MD Work Phone: [facility] 12-12-2024 10:32-0400 Body height 170.[address] Rigoberto Durand MD Work Phone: [facility] 09-22-2024 15:10-0500 Body height 170.2 cm Ralph Roth MD Work Phone: [facility] 09-22-2024 15:10-0500 Body mass index (BMI) [Ratio] 28.19 kg/m2 Ralph Roth MD Work Phone: [facility] 09-22-2024 15:10-0500 Body weight 81.65 kg Ralph Roth MD Work Phone: [facility] 09-22-2024 15:10-0500 Diastolic blood pressure 68 mm[Hg] Ralph Roth MD Work Phone: [facility] 09-22-2024 15:10-0500 Systolic blood pressure 136 mm[Hg] Ralph Roth MD Work Phone: [facility] 01-09-2024 11:03-0400 Body height 170.2 cm Petra Renteria OFFICE RN - TUBE DRAW HELPER Work Phone: [facility] 01-09-2024 11:03-0400 Body mass index (BMI) [Ratio] 28.04 kg/m2 Petra Renteria OFFICE RN - TUBE DRAW HELPER Work Phone: [facility] 01-09-2024 11:03-0400 Body weight 81.19 kg Petra Renteria OFFICE RN - TUBE DRAW HELPER Work Phone: [facility] 01-09-2024 11:03-0400 Diastolic blood pressure 78 mm[Hg] Petra Renteria OFFICE RN - TUBE DRAW HELPER Work Phone: [facility] 01-09-2024 11:03-0400 Heart rate 88 /min Petra Renteria OFFICE RN - TUBE DRAW HELPER Work Phone: [facility] 01-09-2024 11:03-0400 SaO2% (BldA) [Mass fraction] 97 % Petra Renteria OFFICE RN - TUBE DRAW HELPER Work Phone: [facility] 01-09-2024 11:03-0400 Systolic blood pressure 120 mm[Hg] Petra Renteria OFFICE RN - TUBE DRAW HELPER Work Phone: [facility] 11-27-2023 09:23-0400 Body temperature 97 [degF] [facility] 11-27-2023 09:23-0400 Diastolic blood pressure 59 mm[Hg] [facility] 11-27-2023 09:23-0400 Heart rate 66 /min [facility] 11-27-2023 09:23-0400 Respiratory rate 12 /min [facility] 11-27-2023 09:23-0400 SaO2% (BldA) [Mass fraction] 98 % [facility] 11-27-2023 09:23-0400 Systolic blood pressure 133 mm[Hg] [facility] 11-27-2023 04:20-0400 Body height 170.18 cm [facility] 11-27-2023 04:20-0400 Body mass index (BMI) [Ratio] 31.1 kg/m2 [facility] 11-27-2023 04:20-0400 Body weight 90.3 kg [facility] 03-12-2023 08:32-0400 Body height 170.2 cm Ralph Roth MD Work Phone: [facility] 03-12-2023 08:32-0400 Body mass index (BMI) [Ratio] 28.66 kg/m2 Ralph Roth MD Work Phone: [facility] 03-12-2023 08:32-0400 Body weight 83.01 kg Ralph Roth MD Work Phone: [facility] 03-12-2023 08:32-0400 Diastolic blood pressure 76 mm[Hg] Ralph Roth MD Work Phone: [facility] 03-12-2023 08:32-0400 Heart rate 77 /min Ralph Roth MD Work Phone: [facility] 03-12-2023 08:32-0400 Respiratory rate 16 /min Ralph Roth MD Work Phone: [facility] 03-12-2023 08:32-0400 SaO2% (BldA) [Mass fraction] 96 % Ralph Roth MD Work Phone: [facility] 03-12-2023 08:32-0400 Systolic blood pressure 120 mm[Hg] Ralph Roth MD Work Phone: [facility] 09-10-2022 09:10-0500 Body height 170.2 cm Petra Renteria OFFICE RN - TUBE DRAW HELPER Work Phone: [facility] 09-10-2022 09:10-0500 Body mass index (BMI) [Ratio] 28.85 kg/m2 Petra Renteria OFFICE RN - TUBE DRAW HELPER Work Phone: [facility] 09-10-2022 09:10-0500 Body weight 83.55 kg Petra Renteria OFFICE RN - TUBE DRAW HELPER Work Phone: [facility] 09-10-2022 09:10-0500 Diastolic blood pressure 52 mm[Hg] Petra Renteria OFFICE RN - TUBE DRAW HELPER Work Phone: [facility] 09-10-2022 09:10-0500 Heart rate 91 /min Petra Renteria OFFICE RN - TUBE D[employer] HELPER Work Phone: [facility] 09-10-2022 09:10-0500 Respiratory rate 16 /min Petra Renteria OFFICE RN - TUBE D[employer] HELPER Work Phone: [facility] 09-10-2022 09:10-0500 SaO2% (BldA) [Mass fraction] 96 % Petra Renteria OFFICE RN - TUBE DRAW HELPER Work Phone: [facility] 09-10-2022 09:10-0500 Systolic blood pressure 102 mm[Hg] Petra Renteria OFFICE RN - TUBE DRAW HELPER Work Phone: [facility] 03-27-2022 13:36-0400 Body height 170.[address] Rigoberto Durand Work Phone: [facility] Work Phone: 03-27-2022 13:36-0400 Body mass index (BMI) [Ratio] 26.6 kg/m2 Dr. Rigoberto Durand Work Phone: [facility] Work Phone: 03-27-2022 13:36-0400 Body weight 77.[address] Rigoberto Durand Work Phone: [facility] Work Phone: 03-05-2022 11:55-0400 Diastolic blood pressure 62 mm[Hg] Dr. Rigoberto Durand Work Phone: [facility] Work Phone: 03-05-2022 11:55-0400 Heart rate 85 /min Dr. Rigoberto Durand Work Phone: [facility] Work Phone: 03-05-2022 11:55-0400 Respiratory rate 14 /min Dr. Rigoberto Durand Work Phone: [facility] Work Phone: 03-05-2022 11:55-0400 SaO2% (BldA) [Mass fraction] 98 % Dr. Rigoberto Durand Work Phone: [facility] Work Phone: 03-05-2022 11:55-0400 Systolic blood pressure 117 mm[Hg] Dr. Rigoberto Durand Work Phone: [facility] Work Phone: 08-22-2021 13:00-0500 Body temperature 97.8 [degF] Dr. Rigoberto Durand Work Phone: [facility] Work Phone: 08-22-2021 13:00-0500 Diastolic blood pressure 62 mm[Hg] Dr. Rigoberto Durand Work Phone: [facility] Work Phone: 08-22-2021 13:00-0500 Heart rate 76 /min Dr. Rigoberto Durand Work Phone: [facility] Work Phone: 08-22-2021 13:00-0500 Respiratory rate 20 /min Dr. Rigoberto Durand Work Phone: [facility] Work Phone: 08-22-2021 13:00-0500 SaO2% (BldA) [Mass fraction] 97 % Dr. Rigoberto Durand Work Phone: [facility] Work Phone: 08-22-2021 13:00-0500 Systolic blood pressure 120 mm[Hg] Dr. Rigoberto Durand Work Phone: [facility] Work Phone: 08-22-2021 09:02-0500 Body height 170.[address] Rigoberto Durand Work Phone: [facility] Work Phone: 08-22-2021 09:02-0500 Body weight 70.[address] Rigoberto Durand Work Phone: [facility] Work Phone: 08-21-2021 03:00-0500 Inhaled oxygen concentration 100 % Dr. Rigoberto Durand Work Phone: [facility] Work Phone: 08-20-2021 20:36-0500 Body mass index (BMI) [Ratio] 24.4 kg/m2 Dr. Rigoberto Durand Work Phone: [facility] Work Phone: 09-26-2020 07:04-0500 Body Temperature 98.01 [degF] Mauro CAM Work Phone: 09-26-2020 07:04-0500 BP Diastolic 55 mm[Hg] Mauro CAM Work Phone: 09-26-2020 07:04-0500 BP Systolic 116 mm[Hg] Mauro CAM Work Phone: 09-26-2020 07:04-0500 Pulse (Heart Rate) [...] 09-15-2020 11:45-0500 Body Temperature 96.21 [degF] Ruddy Yepezedson CAM Work Phone: 09-15-2020 11:45-0500 BP Diastolic [...] 09-05-2020 22:30-0500 BP Systolic 119 mm[Hg] RON TAYLORA Work Phone: 09-05-2020 22:30-0500 Pulse (Heart Rate) 105 /min RNO TAYLORA Work Phone: 09-05-2020 22:30-0500 Pulse Oximetry 100 % RON TAYLORA Work Phone: 09-05-2020 22:30-0500 Respiratory Rate 18 /min RON TAYLORA Work Phone: 09-05-2020 19:05-0500 BMI (Body Mass Index) 29.29 kg/m2 RON TAYLORA Work Phone: 09-05-2020 19:05-0500 Body Temperature 97.3 [degF] RON CAM Work Phone: 09-05-2020 19:05-0500 Body weight 84.82 kg RON CAM Work Phone: 08-29-2020 14:51-0500 BMI (Body Mass Index) 29.49 kg/m2 Ralph Cabrera [facility], [place] 08-29-2020 14:51-0500 Body Temperature 97.2 [degF] Ralph Roth [facility], [place] 08-29-2020 14:51-0500 Body weight 85.41 kg Ralph Roth [facility] , [place] 08-29-2020 14:51-0500 BP Diastolic 72 mm[Hg] [facility] [place] 08-29-2020 14:51-0500 BP Systolic 115 mm[Hg] [facility] [place] 08-29-2020 14:51-0500 Height 170.2 cm [facility] [place] 08-29-2020 14:51-0500 Pulse (Heart Rate) 98 /min Ralph Roth [facility], [place] 08-29-2020 14:51-0500 Respiratory Rate 18 /min Ralph Roth [facility], [place] 08-22-2020 12:24-0500 BP Diastolic 78 mm[Hg] [facility] [place] 08-22-2020 12:24-0500 BP Systolic 122 mm[Hg] [facility] [place] 08-22-2020 12:24-0500 Pulse (Heart Rate) 86 /min [facility] [place] 08-22-2020 10:53-0500 BMI (Body Mass Index) 28.98 kg/m2 Ralph Cabrera [facility], [place] 08-22-2020 10:53-0500 Body Temperature 97.11 [degF] Ralph Roth [facility], [place] 08-22-2020 10:53-0500 Body weight 83.92 kg Ralph [facility] [place] [facility] [place] 08-22-2020 10:53-0500 Respiratory Rate 18 /min [facility] [place] [place] Encounters Encounter Date Encounter Type Care Provider Facility Start: 04-12-2025 ambulatory Rigoberto Durand Facility:[facility] Start: 04-07-2025 Evaluation and manag ement of inpatient Rigoberto Durand Facility:[facility] Start: 04-05-2025 ambulatory Rigoberto Durand Facility:[facility] Start: 04-05-2025 End: 04-07-2025 Evaluation and management of inpatient Dr. Rigoberto Durand MD -Progressive Care Unit Work Phone: Start: 04-05-2025 ambulatory Rigoberto Durand Facility:[facility] Start: 04-05-2025 Non-patient / Non-visit Dr. Dasia Durand MD -[facility] Work Phone: Start: 04-01-2025 End: 04-01-2025 Emergency department patient visit Dr. Rigoberto Durand MD Work Phone: -Emergency Department Work Phone: Start: 03-07-2025 End: 03-07-2025 Refill Petra Renteria APRN [employer] Work Phone: [facility] Comment on above: Chronic HFrEF (heart failure with reduced ejection fraction) (HCC) Start: 03-03-2025 End: 03-03-2025 Office outpatient visit 25 minutes Petra Renteria APRN - TUBE D[employer] HELPER Work Phone: [facility] Comment on above: Non-ischemic cardiom yopathy (CMS/HCC) (HCC) (Primary Dx); Acute HFrEF (heart failure with reduced ejection fraction) (HCC); ICD (implantable cardioverter-defibrillator), biventricular, in situ Start: 03-03-2025 End: 03-03-2025 ambulatory PETRA RENTERIA [facility] Start: 03-02-2025 End: 03-02-2025 ambulatory Jany Bonilla RN [facility] Start: 02-17-2025 End: 02-17-2025 ambulatory Jany Bonilla RN [facility] Start: 02-10-2025 End: 02-15-2025 ambulatory GIBSON ROTH [facility] Start: 02-10-2025 End: 02-15-2025 Evaluation and management of inpatient Latricia Landa DO Work Phone: [facility] MSU 4S Comment on above: Cellulitis of lower extremity, unspecified laterality (Primary Dx); Acute HFrEF (heart failure with reduced ejection fraction) (HCC) Start: 02-04-2025 End: 02-04-2025 Telephone encounter Cindy Peterson CNP Work Phone: [facility] Comment on above: Other (HFdEF) Start: 01-28-2025 End: 01-28-2025 Telephone encounter Ralph Roth MD Work Phone: [facility] Start: 01-28-2025 End: 02-01-2025 Evaluation and management of inpatient Latricia Landa DO Work Phone: [facility] Cardiac Progressive Care Unit PCU 5W Comment on above: Acute systolic conge stive heart failure (HCC) (Primary Dx); Bilateral leg edema; Chronic kidney disease, unspecified CKD stage; AICD (automatic cardioverter/defibrillator) present Start: 01-26-2025 End: 01-26-2025 ambulatory RALPH ROTH [facility] Start: 01-26-2025 End: 01-26-2025 Office outpatient visit 25 minutes Ralph Roth MD Work Phone: [facility] Comment on above: Primary hypertension (Primary Dx); Acute systolic heart failure (HCC); Acute on chronic clinical systolic heart failure (HCC) Start: 01-12-2025 End: 01-12-2025 ambulatory GIBSON BRENDA [facility] Start: 12-12-2024 End: 12-12-2024 Emergency department patient visit Dr. Rigoberto Durand MD Work Phone: -Emergency Department Work Phone: Start: 12-08-2024 End: 12-08-2024 Refill ePtra Renteria OFFICE RN - TUBE DRAW HELPER Work Phone: [facility] Comment on above: Acute HFrEF (heart f ailure with reduced ejection fraction) (HCC) Start: 10-06-2024 End: 10-06-2024 ambulatory GIBSON [facility] Start: 09-27-2024 End: 09-27-[address] Rigoberto Durand MD Work Phone: [facility] Work Phone: Start: 09-27-2024 End: 09-27-[address] Rigoberto Durand MD -Laboratory, [facility] Start: 09-27-2024 End: 09-27-2024 [facility] Start: 09-22-2024 End: 09-22-2024 Office outpatient visit 15 minutes Ralph Roth MD Work Phone: [facility] Comment on above: Chronic HFrEF (heart failure with reduced ejection fraction) (HCC) (Primary Dx) Start: 09-22-2024 End: 09-22-2024 ambulatory RALPH BRENDA [facility] Start: 07-28-2024 End: 07-28-2024 Telephone encounter Di Hernández RN [facility] Start: 07-20-2024 End: 07-20-2024 Refill Ralph Roth MD Work Phone: [facility] Start: 06-15-2024 End: 06-16-2024 Refill Radha Delgado APRN - TUBE DRAW HELPER Work Phone: [facility] Comment on above: Acute HFrEF (heart f ailure with reduced ejection fraction) (HCC) Start: 05-26-2024 End: 05-26-2024 ambulatory GIBSON [facility] Start: 05-10-2024 Encounter for genera l adult medical examination without abnormal findings Rigoberto Durand [facility] Start: 04-16-2024 End: 04-16-2024 ambulatory [facility] Start: 03-19-2024 End: 04-21-2024 Telephone encounter Ralph Roth MD Work Phone: [facility] [place] Comment on above: Med Management Start: 03-18-2024 End: 03-18-2024 Refill Petra Renteria OFFICE RN - TUBE DRAW HELPER Work Phone: [facility] Comment on above: Chronic HFrEF (heart failure with reduced ejection fraction) (HCC) Start: 01-09-2024 End: 01-09-2024 Office outpatient visit 25 minutes Petra Renteria OFFICE RN - [employer] Work Phone: [facility] Comment on above: Non-ischemic cardiom yopathy (CMS/HCC) (HCC) (Primary Dx); Primary hypertension; Acute HFrEF (heart failure with reduced ejection fraction) (HCC); ICD (implantable cardioverter-defibrillator), biventricular, in situ; Other iron deficiency anemia Start: 12-22-2023 Refill Ralph yi MD Work Phone: [facility] Comment on above: Erectile dysfunction , unspecified erectile dysfunction type Start: 12-18-2023 Refill Lance martinez OFFICE RN - TUBE DRAW HELPER Work Phone: [facility] Comment on above: Acute HFrEF (heart f ailure with reduced ejection fraction) (HCC) Start: 11-27-2023 End: 11-27-2023 Emergency department patient visit [facility]-Emergency Department Work Phone: Start: 08-29-2023 End: 08-29-2023 ambulatory [facility] Work Phone: Start: 08-29-2023 End: 08-29-2023 Patient encounter procedure [facility] Start: 06-11-2023 Refill Ralph yi MD Work Phone: [facility] Comment on above: Acute HFrEF (heart f ailure with reduced ejection fraction) (HCC) Start: 06-02-2023 End: 06-02-2023 ambulatory [facility] Work Phone: Start: 06-02-2023 End: 06-02-2023 Patient encounter procedure [facility] Start: 05-12-2023 Refill Brinda Bourne APRN.TUBE DRAW HELPER Work Phone: [facility] Comment on above: Refill Request Start: 03-12-2023 End: 03-12-2023 Office outpatient visit 25 minutes Ralph Roth MD Work Phone: [facility] Comment on above: Hyperlipidemia, unsp ecified hyperlipidemia type Start: 03-08-2023 Refill Brinda Bourne APRN.TUBE DRAW HELPER Work Phone: [facility] Comment on above: Refill Request (Sucr alfate ) Start: 03-04-2023 End: 03-04-2023 [facility] Work Phone: Start: 03-04-2023 End: 03-04-2023 Patient encounter procedure [facility] Start: 09-10-2022 End: 09-10-2022 Office outpatient visit 25 minutes Petra Renteria APRN - TUBE DRAW HELPER Work Phone: [facility] Comment on above: Acute HFrEF (heart f ailure with reduced ejection fraction) (CMS/HCC) (HCC) (Primary Dx); Presence of cardiac resynchronization therapy defibrillator (DISCHARGE COORDINATOR-D); Non-ischemic cardiomyopathy (CMS/HCC) (HCC) Start: 08-26-2022 End: 08-26-2022 ambulatory [facility] Work Phone: Start: 08-26-2022 End: 08-26-2022 Patient encounter procedure [facility] Start: 08-21-2022 Telephone encounter Ralph lloyd MD Work Phone: [facility] Comment on above: Med Management Erectile dysfunction , unspecified erectile dysfunction type Start: 07-11-2022 Telephone encounter Ralph lloyd MD Work Phone: [facility] Comment on above: Med Management Start: 05-16-2022 End: 05-16-[address] Rigoberto Durand Work Phone: [facility] Work Phone: Start: 05-16-2022 End: 05-16-[address] Rigoberto Durand Work Phone: [facility] Start: 03-27-2022 End: 03-27-[address] Rigoberto Durand Work Phone: [facility] Start: 03-20-2022 End: 03-20-2022 Subsequent hospital visit by physician Ruddy Gates MD Work Phone: [facility] Comment on above: Chronic systolic (co ngestive) heart failure (HCC); Chronic HFrEF (heart failure with reduced ejection fraction) (HCC) Start: 03-05-2022 End: 03-05-[address] Rigoberto Durand Work Phone: [facility] Start: 02-18-2022 End: 02-18-[address] Rigoberto Durand Work Phone: [facility] Gastroenter[facility] Start: 01-30-2022 End: 01-30-[address] Rigoberto Durand Work Phone: [facility] Start: 11-19-2021 End: 11-19-[address] Rigoberto Durand Work Phone: [facility] Start: 10-25-2021 End: 10-25-[address] Rigoberto Durnad Work Phone: [facility] Start: 09-21-2021 End: 09-21-[address] Rigoberto Durand Work Phone: [facility] Start: 08-31-2021 End: 08-31-[address] Rigoberto Durand Work Phone: [facility] Start: 08-22-2021 Non-patient / Non-visit Dr. Dasia Durand Work Phone: [facility] Start: 08-22-2021 Non-patient / [facility] Start: 08-22-2021 Non-patient / Non-visit Dr. Dasia Durand Work Phone: [facility] Start: 08-21-2021 Non-patient / Non-visit Dr. Dasia Durand Work Phone: [facility] Start: 08-21-2021 Non-patient / Non-visit Dr. Dasia Durand Work Phone: [facility] Start: 08-21-2021 Non-patient / Non-visit Dr. Dasia Durand Work Phone: [facility] Start: 08-20-2021 Non-patient / Non-visit Dr. Dasia Durand Work Phone: [facility] Start: 08-20-2021 End: 08-22-2021 Evaluation and management of inpatient Dr. Rigoberto Durand Work Phone: [facility]-Intensive Care Unit Start: 08-09-[address] Rigoberto Durand Work Phone: [facility] Start: 07-23-2021 End: 07-23-[address] Rigoberto Durand Work Phone: [facility] Start: 07-09-[address] Rigoberto Durand Work Phone: [facility] Start: 09-21-2020 End: 09-26-2020 Evaluation and management of inpatient Mauro Padgett Work Phone: [facility] Start: 09-21-2020 End: 09-21-2020 Subsequent hospital visit by physician Cindy Og Work Phone: 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) (Primary Dx) Start: 09-05-2020 End: 09-05-2020 Emergency department patient visit Shamika Glasgow Work Phone: [facility] ED Comment on above: Abdominal pain, righ t upper quadrant (Primary Dx) Start: 08-29-2020 End: 08-29-2020 Subsequent hospital visit by physician Ralph Roth Work Phone: [facility] Comment on above: Iron deficiency anem ia, unspecified iron deficiency anemia type (Primary Dx); Iron malabsorption Start: 08-23-2020 End: 08-23-2020 Subsequent hospital visit by physician Ralph Roth Work Phone: [facility] Comment on above: Chronic systolic (co [...] visit by physician Ralph Roth Work Phone: [facility] Comment on above: Iron deficiency anem ia, unspecified iron deficiency anemia type (Primary Dx); Iron malabsorption Start: 06-27-2020 End: 06-27-2020 Subsequent hospital visit by physician Ralph Roth Work Phone: [facility] [address] Comment on above: Chronic systolic hea rt failure (HCC) Procedures Date Procedure Procedure Detail Performing Clinician Start: 04-05-2025 Plain chest X-ray Dr. Fabiana Durand MD Work Phone: Start: 04-05-[address] Rigoberto Durand MD Work Phone: Start: 04-01-[address] Rigoberto [...] Glucose quantitative blood xcpt reagent strip Lisa Vlad DO Work Phone: Start: 02-15-2025 End: 02-15-2025 [...] 02-01-2025 Comprehensive metabo lic panel Dena Curtis OFFICE RN [employer] Work Phone: Start: 02-01-2025 Glucose quantitative blood xcpt reagent strip Dee Jones MD Work Phone: Start: 02-01-2025 Glucose quantitative blood xcpt reagent strip Dee Jones MD Work Phone: Start: 02-01-2025 Blood count complete automated Reeya Laura DO Work Phone: Start: 01-31-2025 Glucose quantitative blood xcpt reagent strip Marco Antonio Hall DO Work Phone: Start: 01-31-2025 End: 01-31-2025 Comprehensive metabolic panel Dena Curtis OFFICE RN [employer] Work Phone: Start: 01-31-2025 End: 01-31-2025 Comprehensive metabolic panel Reeya Laura DO Work Phone: Start: 01-31-2025 TTE w or wo fol wcon,Doppler Jabari Osman PA-C Work Phone: Start: 01-31-2025 Glucose quantitative [...] Blood count complete auto&auto difrntl wbc Dat [employer] Work Phone: Start: 09-26-2020 RBC morphology findi ng Nom (Bld) Petra J Dexter Work Phone: Start: 09-25-2020 Assay of magnesium Tram nely J Dexter Work Phone: Start: 09-25-2020 Basic metabolic pane l calcium total Petra J Dexter Work Phone: Start: 09-25-2020 Blood count complete auto&auto difrntl wbc Dat [employer] Work Phone: Start: 09-25-2020 RBC morphology findi ng Nom (Bld) Petra J Dexter Work Phone: Start: 09-24-2020 PULSE OXIMETRY, NOCT URNAL SATURATION STUDY Aftab Anna Work Phone: Start: 09-24-2020 Assay of magnesium Tram nely J Dexter Work Phone: Start: 09-24-2020 Basic metabolic pane l calcium total Petra J Dexter Work Phone: Start: 09-24-2020 Blood count complete auto&auto difrntl wbc Dat [employer] Work Phone: Start: 09-24-2020 Natriuretic peptide Ros vasiliy Renteria Work Phone: Start: 09-24-2020 RBC morphology findi ng Nom (Bld) Petra Renteria Work Phone: Start: 09-23-2020 Assay of magnesium Tram Renteria Work Phone: Start: 09-23-2020 Basic metabolic pane l calcium total Petra Renteria Work Phone: Start: 09-23-2020 Blood count complete auto&auto difrntl wbc Dat Angel Work Phone: Start: 09-23-2020 Hepatic function panel Petra Renteria Work Phone: Start: 09-23-2020 RBC morphology findi ng Nom (Bld) Petra Renteria Work Phone: Start: 09-22-2020 ADD ON LAB TEST Mauro Griggs Redtommy Work Phone: Start: 09-22-2020 Radiologic exam ches t single view Mauro Anson Redle Work Phone: Start: 09-22-2020 Assay of magnesium Tram Renteria Work Phone: Start: 09-22-2020 Basic metabolic pane l calcium total Petra Renteria Work Phone: Start: 09-22-2020 Blood count complete automated Petra Renteria Work Phone: Start: 09-22-2020 Hepatic function panel Petra Renteria Work Phone: Start: 09-21-2020 Ecg routine ecg w/le ast 12 lds w/i&r Mauro Anson Redle Work Phone: Start: 09-21-2020 Basic metabolic pane l calcium total Mauro D Redle Work Phone: Start: 09-21-2020 Blood count complete auto&auto difrntl wbc Mauro D Redle Work Phone: Start: 09-21-2020 Natriuretic peptide Héctor sarwat Padgett Work Phone: Start: 09-21-2020 RBC morphology findi ng Nom (Bld) Mauro Padgett Work Phone: Start: 09-21-2020 Basic metabolic pane l calcium total Cindy Og Work Phone: Start: 09-21-2020 Natriuretic peptide Bentley Og Work Phone: Start: 09-15-2020 Assay of magnesium Sema an Cyrus Work Phone: Start: 09-15-2020 BASIC METABOLIC PANE L W/ REFLEX TO MG FOR LOW K Mackenzie Cyrus Work Phone: Start: 09-14-2020 Assay of magnesium Jimmie Bridges Work Phone: Start: 09-14-2020 BASIC METABOLIC PANE L W/ REFLEX TO MG FOR LOW K Mackenzie Gregoryi Work Phone: Start: 09-14-2020 Blood count complete automated Mackenzie Cyrus Work Phone: Start: 09-14-2020 Us retroperitoneal r eal time w/image complete Cindy Og Work Phone: Start: 09-14-2020 Assay of magnesium Jimmie Bridges Work Phone: Start: 09-14-2020 BASIC METABOLIC PANE L W/ REFLEX TO MG FOR LOW K Mackenzie Gregoryi Work Phone: Start: 09-14-2020 Blood count complete automated Mackenzie Cyrus Work Phone: Start: 09-13-2020 Assay of magnesium Violette v Gura Work Phone: Start: 09-13-2020 Basic metabolic pane l calcium total Natan Gura Work Phone: Start: 09-12-2020 Ecg routine ecg w/le ast 12 lds w/i&r Gibson Dugan Work Phone: Start: 09-12-2020 ADD ON LAB TEST Natan rodriguez Work Phone: Start: 09-12-2020 Radiologic exam ches t 2 views Marcela O'Shell Work Phone: Start: 09-12-2020 Assay of lactate Mackenzie Bridges Work Phone: Start: 09-12-2020 Assay of lactate Mackenzei Bridges Work Phone: Start: 09-12-2020 Assay of [...] Phone: Start: 09-05-2020 Comprehensive metabo lic panel Shamika Glasgow Work Phone: Start: 09-05-2020 Urnls dip stick/tabl et rgnt auto w/o microscopy J Tammi Darshan Sebastiankeila Work Phone: Start: 09-05-2020 Ecg routine ecg w/le ast 12 lds w/i&r J Tammi Darshan Lencho Work Phone: Start: 08-23-2020 Echo tthrc r-t 2d w/ wom-mode compl spec&colr d Ralph Dahl [place] Work Phone: Start: 06-27-2020 Basic metabolic pane l calcium total Ralph Dahl [place] Work Phone: Start: 06-27-2020 Blood count complete automated Ralph Dahl Brenda Work Phone: Start: 03-16-2013 Colonoscopy Brinda Santoyo on .TUBE DRAW HELPER Work Phone: Plan of Treatment Date Care Activity Detail Author Start: 08-24-2030 DTaP/Tdap/Td vaccine (2 - Td or Tdap) DTaP/Tdap/Td vaccine (2 - Td or Tdap) [facility] Start: 08-24-2030 DTaP/Tdap/Td vaccine (2 - Td) DTaP/Tdap/Td vaccine (2 - Td) [place], [place] Start: 08-24-2030 DTaP/Tdap/Td Vaccines (2 - Td or Tdap) DTaP/Tdap/Td Vaccines (2 - Td or Tdap) [facility] Start: 03-03-2026 Creatinine measurement Creatinine Level [facility] Start: 03-03-2026 Diabetes: Estimated Glomerular Filtration Rate for Kidney Health Diabetes: Estimated Glomerular Filtration Rate for Kidney Health [facility] Start: 03-03-2026 Potassium measurement Potassium Level [facility] Start: 02-15-2026 Creatinine measurement Creatinine Level [facility] Start: 02-15-2026 Diabetes: Estimated Glomerular Filtration Rate for Kidney Health Diabetes: Estimated Glomerular Filtration Rate for Kidney Health [facility] Start: 02-15-2026 Potassium measurement Potassium Level [facility] Start: 02-01-2026 Creatinine measurement Creatinine Level [facility] Start: 02-01-2026 Diabetes: Estimated Glomerular Filtration Rate for Kidney Health Diabetes: Estimated Glomerular Filtration Rate for Kidney Health [facility] Start: 02-01-2026 Potassium measurement Potassium Level [facility] Start: 01-31-2026 Echocardiography Echocardiogram [facility] Start: 2025 End: 2025 Patient encounter procedure 2025 3:00 PM EST Office Visit [facility] [address] [place] [address] Petra Renteria APRN - TUBE DRAW HELPER [address], [address] [place] [address] [facility] Start: 05-04-2025 End: 05-04-2025 Professional / ancillary services management 05/04/2025 2:30 PM EDT Ancillary Procedure [facility] [address] [place] [address] [facility] Start: 04-05-2025 Verification routine [facility] Start: 04-05-2025 Admission procedure [facility] Start: 04-05-2025 Hospital admission, emergency, from emergency room, medical nature [facility] Start: 04-01-2025 [facility] Start: 04-01-2025 Simple repair f/e/e/n/l/m 2.5cm/< RPR F/E/E/N/L/M 2.5 CM/< [facility] Start: 03-21-2025 Influenza vaccination [facility] Start: 03-10-2025 End: 03-03-2026 CBC panel - Blood by Automated count CBC Lab Routine Non-ischemic cardiomyopathy (CMS/HCC) (HCC) Expected: 03/10/2025 (Approximate), Expires: 03/03/2026 [facility] Comment on above: Expected: 03/10/2025 (Approximate), Expi res: 03/03/2026 Start: 03-04-2025 End: 03-04-2025 Patient encounter procedure 03/04/2025 8:00 AM EDT Office Visit [facility] [address] [place] [address] Petra Renteria, OFFICE RN - TUBE DRAW HELPER [address], [address] [address] [facility] Start: 03-03-2025 End: 03-03-2026 Basic metabolic 1998 panel - Serum or Plasma Basic metabolic panel Lab Routine Non-ischemic cardiomyopathy (CMS/HCC) (HCC) Expected: 03/03/2025 (Approximate), Expires: 03/03/2026 [facility] Work Phone: Comment on above: Expected: 03/03/2025 (Approximate), Expi res: 03/03/2026 Start: 02-17-2025 End: 02-17-2025 Patient encounter procedure 02/17/2025 9:00 AM EDT Office Visit [address] [address] Petra Renteria OFFICE RN - TUBE DRAW HELPER [address] [place] [address], [address] [address] [facility] Start: 02-15-2025 End: 02-15-2025 Patient encounter procedure 02/15/2025 2:30 PM EDT Office Visit [address] [address] Petra Renteria OFFICE RN - TUBE DRAW HELPER [address] [place] [address], [address] [address] [facility] Start: 01-26-2025 End: 01-26-2026 CBC panel - Blood by Automated count CBC Lab Routine Primary hypertension Acute systolic heart failure (HCC) Expected: 01/26/2025 (Approximate), Expires: 01/26/2026 [facility] Comment on above: Expected: 01/26/2025 (Approximate), Expi res: 01/26/2026 Start: 01-26-2025 End: 01-26-2026 Comprehensive metabolic 1998 panel - Serum or Plasma Comprehensive metabolic panel Lab Routine Primary hypertension Acute systolic heart failure (HCC) Expected: 01/26/2025 (Approximate), Expires: 01/26/2026 [facility] Work Phone: Comment on above: Expected: 01/26/2025 (Approximate), Expi res: 01/26/2026 Start: 01-12-2025 End: 01-12-2025 Professional / ancillary services management 01/12/2025 3:00 PM EDT Ancillary Procedure [facility] [address] [place] [address] [facility] Start: 01-08-2025 Creatinine measurement Creatinine Level [facility] Start: 01-08-2025 Diabetes: Estimated Glomerular Filtration Rate for Kidney Health Diabetes: Estimated Glomerular Filtration Rate for Kidney Health [facility] Start: 01-08-2025 Potassium measurement Potassium Level [facility] Start: 12-12-2024 [facility] Start: 12-12-2024 [facility] Start: 10-06-2024 End: 10-06-2024 Professional / ancillary services management 10/06/2024 7:30 AM EDT Ancillary Procedure [facility] [address] [place] [address] [facility] Start: 09-22-2024 End: 09-22-2024 Patient encounter procedure 09/22/2024 3:00 PM EST Office Visit [facility] [address] [place] [address] Ralph Roth MD [address] [place] [id number] [facility] Start: 09-22-2024 End: 09-22-2024 Professional / ancillary services management 09/22/2024 2:30 PM EST Ancillary Procedure [facility] [address] [place] [address] [facility] Start: 07-28-2024 End: 07-28-2024 Patient encounter procedure [facility] Start: 07-28-2024 End: 07-28-2024 Professional / ancillary services management [facility] Start: 07-21-2024 Medicare Advantage Annual Wellness Visit Medicare Advantage Annual Wellness Visit [facility] Start: 05-26-2024 End: 05-26-2024 Professional / ancillary services management [facility] Start: 03-21-2024 COVID-19 Vaccine () COVID-19 Vaccine () [facility] Start: 03-21-2024 COVID-19 Vaccine () COVID-19 Vaccine () [facility] Start: 03-21-2024 Influenza vaccination [facility] Start: 02-11-2024 End: 02-11-2024 Professional / ancillary services management [facility] Start: 01-09-2024 End: 01-08-2025 Basic metabolic 1998 panel - Serum or Plasma Basic metabolic panel Lab Routine Non-ischemic cardiomyopathy (CMS/HCC) (HCC) Primary hypertension Expected: 01/09/2024 (Approximate), Expires: 01/08/2025 [facility] Work Phone: Comment on above: Expected: 01/09/2024 (Approximate), Expi res: 01/08/2025 Start: 01-09-2024 End: 01-08-2025 CBC panel - Blood by Automated count CBC Lab Routine Non-ischemic cardiomyopathy (CMS/HCC) (HCC) Primary hypertension Expected: 01/09/2024 (Approximate), Expires: 01/08/2025 [facility] Comment on above: Expected: 01/09/2024 (Approximate), Expi res: 01/08/2025 Start: 01-09-2024 End: 01-09-2024 Patient encounter procedure 01/09/2024 10:30 AM EDT Office Visit [facility] [address] [place] [id number] Petra Renteria, OFFICE RN - TUBE DRAW HELPER [address], [address] [place] [address] [facility] Start: 11-27-2023 Bacteria identified in Blood by Culture Blood Culture [facility] Start: 11-27-2023 Hospital admission, emergency, from emergency room, medical nature [facility] Start: 11-27-2023 Admission procedure [facility] Start: 11-27-2023 US scan of gallbladder Gallbladder [facility] Start: 11-27-2023 End: 11-27-2023 Blood culture [facility] Start: 09-10-2023 Creatinine measurement Creatinine Level [facility] Start: 09-10-2023 Potassium measurement Potassium Level [facility] Start: 06-25-2023 End: 06-25-2023 Professional / ancillary services management 06/25/2023 7:00 AM EST Ancillary Procedure [facility] [address] [place] [id number] [facility] Start: 06-05-2023 Creatinine measurement Creatinine Level [facility] Start: 06-05-2023 Potassium measurement Potassium Level [facility] Start: 03-21-2023 COVID-19 Vaccine ( season) COVID-19 Vaccine ( season) [facility] Start: 03-21-2023 Influenza vaccination [facility] Start: 03-12-2023 End: 03-12-2023 Patient encounter procedure [facility] Start: 03-12-2023 End: 03-12-2023 Professional / ancillary services management 03/12/2023 8:30 AM EDT Ancillary Procedure [facility] [address] [place] [address] [facility] Start: 11-20-2022 End: 11-20-2022 Professional / ancillary services management 11/20/2022 Ancillary Procedure Cardiology [facility] Start: 09-10-2022 End: 09-10-2023 Basic metabolic 1998 panel - Serum or Plasma Basic metabolic panel Lab Routine Acute HFrEF (heart failure with reduced ejection fraction) (CMS/HCC) (HCC) Expected: 09/10/2022 (Approximate), Expires: 09/10/2023 [facility] Work Phone: Comment on above: Expected: 09/10/2022 (Approximate), Expi res: 09/10/2023 Start: 09-10-2022 End: 09-10-2023 CBC panel - Blood by Automated count CBC Lab Routine Acute HFrEF (heart failure with reduced ejection fraction) (CMS/HCC) (HCC) Expected: 09/10/2022 (Approximate), Expires: 09/10/2023 [facility] Comment on above: Expected: 09/10/2022 (Approximate), Expi res: 09/10/2023 Start: 09-10-2022 End: 09-10-2022 Patient encounter procedure 09/10/2022 Office Visit Cardiology Petra Renteria, OFFICE RN - TUBE DRAW HELPER [address] [facility], [address] [place] [address] [facility] Start: 07-21-2022 ADVANCE DIRECTIVE DISCUSSION ADVANCE DIRECTIVE DISCUSSION [facility] Start: 07-21-2022 DEPRESSION ASSESSMENT DEPRESSION ASSESSMENT [facility] Start: 05-14-[address] [facility] Start: 05-08-2022 End: 05-08-2022 Nursing evaluation of patient and report 05/08/2022 Nurse Only Cardiology Leslie Gloria RN [facility] Start: 03-21-2022 Influenza vaccination Flu vaccine (#1) [facility] Start: 09-26-2021 Creatinine measurement Creatinine monitoring [facility] Work Phone: Start: 09-26-2021 Potassium monitoring Potassium monitoring [facility] Work Phone: Start: 09-21-2021 Creatinine measurement Creatinine monitoring [facility] Work Phone: Start: 09-21-2021 Potassium monitoring Potassium monitoring [facility] Work Phone: Start: 09-15-2021 Creatinine measurement Creatinine monitoring [facility] Work Phone: Start: 09-15-2021 Potassium monitoring Potassium monitoring [facility] Work Phone: Start: 09-05-2021 Creatinine measurement Creatinine monitoring [facility] Work Phone: Start: 09-05-2021 Potassium monitoring Potassium monitoring [facility] Work Phone: Start: 08-01-2021 Creatinine measurement Creatinine monitoring [facility] [place] Start: 08-01-2021 Potassium monitoring Potassium monitoring [facility] [place] [place] Start: 05-01-2021 Creatinine measurement Creatinine monitoring [facility] [place] Start: 05-01-2021 Potassium monitoring Potassium monitoring [facility] [place] [place] Start: 04-21-2021 Medicare Annual Wellness (AWV) Medicare Annual Wellness (AWV) [facility] Start: 12-21-2020 End: 12-21-2020 Office Visit 12/21/2020 Office Visit Cardiology Ruddy Gates MD [address] [place] [address] [phone] [facility] Start: 10-24-2020 End: 10-24-2020 Office Visit 10/24/2020 Office Visit Cardiology Ralph Roth MD [address] [place], [place] [id number] [facility] Start: 10-05-2020 End: 10-05-2020 Office Visit 10/05/2020 Office Visit Cardiology Petra Renteria OFFICE RN - TUBE DRAW HELPER [address] [facility], [address] [place] [address] [phone] [facility] Start: 10-02-2020 End: 10-02-2020 Nurse Only 10/02/2020 Nurse Only Cardiology Leslie Gloria, JAIMIE [facility] Start: 09-21-2020 End: 09-21-2020 Office Visit 09/21/2020 Office Visit Cardiology Shawna Sethi APRN - ANDROID SOFTWARE ENGINEER [address] [facility] [address] [place] [address] [phone] [facility] Start: 09-21-2020 End: 09-15-2021 Basic metabolic 2000 panel Basic Metabolic Panel Lab Routine Acute on chronic HFrEF (heart failure with reduced ejection fraction) ([facility]) Expected: 09/21/2020, Expires: 09/15/2021 [facility] Work Phone: Comment on above: Expected: 09/21/2020, Expires: 2 Start: 09-18-2020 End: 09-18-2020 Virtual Visit 09/18/2020 Virtual Visit Gastroenterology Sia Daniels, OFFICE RN - TUBE DRAW HELPER [address] [place] [address] [phone] Gastroenterology [facility] Start: 09-11-2020 End: 09-11-2020 Appointment 09/11/2020 Appointment Stress Lab Ruddy Gates MD [address] [place] [address] [phone] [facility] 1A Card Start: 08-29-2020 End: 08-29-2020 Appointment 08/29/2020 Appointment Infusion Therapy [facility] Start: 08-24-2020 End: 08-24-2020 Office Visit 08/24/2020 Office Visit Cardiology Ruddy Gates MD [address] [place] [address] [phone] [facility] Start: 08-23-2020 End: 08-23-2020 Appointment 08/23/2020 Appointment Echocardiography Ralph Roth MD [address] [place] [address] [phone] [facility] Start: 08-01-2020 End: 08-01-2020 Office Visit 08/01/2020 Office Visit Cardiology Ralph Roth MD [address] [place] [address] [phone] [facility] Start: 03-21-2020 Influenza vaccination Flu vaccine (#1) [place], [place] Start: 01-10-2019 Annual Wellness Visit (AWV) Annual Wellness Visit (AWV) [place] Start: 2014 RSV Immunization for Adults (1 - 1-dose 75+ series) RSV Immunization for Adults (1 - 1-dose 75+ series) [facility] Start: 03-16-2014 Colonoscopy COLONOSCOPY [facility] Start: 06-08-2013 Pneumococcal Vaccine: 65+ Years (2 - PCV) Pneumococcal Vaccine: 65+ Years (2 - PCV) [facility] Start: 2004 Pneumococcal Vaccine: 65+ (1 - PCV) Pneumococcal Vaccine: 65+ (1 - PCV) [facility] Start: 2004 PNEUMOCOCCAL: 65+ (1 - PCV) PNEUMOCOCCAL: 65+ (1 - PCV) [facility] Start: 1999 RSV Immunization aged 60 or older (1 - 1-dose 60+ series) RSV Immunization aged 60 or older (1 - 1-dose 60+ series) [facility] Start: 1999 RSV Vaccine (1 - 1-dose 60+ series) RSV Vaccine (1 - 1-dose 60+ series) [facility] Start: 1989 Shingles Vaccine (1 of 2) Shingles Vaccine (1 of 2) [place] Start: 1989 SHINGRIX VACCINE (1 of 2) SHINGRIX VACCINE (1 of 2) [facility] Start: 1984 DIABETES SCREEN DIABETES SCREEN [facility] Start: 1984 Diabetes Screening Diabetes Screening [facility] Start: 1958 DTaP/Tdap/Td vaccine (1 - Tdap) DTaP/Tdap/Td vaccine (1 - Tdap) [place] Start: 1958 Shingles vaccine (1 of 2) Shingles vaccine (1 of 2) [facility] Start: 1958 Urine microalbumin profile [facility] Start: 1958 Urine screening for protein Diabetes: Urine Protein Screening [facility] Start: 1958 Zoster Vaccines (1 of 2) Zoster Vaccines (1 of 2) [facility] Start: 1957 Diabetes: Urine Albumin-Creatinine Ratio for Kidney Health Diabetes: Urine Albumin-Creatinine Ratio for Kidney Health [facility] Start: 1955 COVID-19 Vaccine (1 of 2) COVID-19 Vaccine (1 of 2) [place] Start: 1951 [address] Depression Screen [facility] Start: 1951 Depression Screening Depression Screening [facility] Start: 1949 Diabetic foot examination Diabetes: Foot Exam [facility] Start: 1949 Glaucoma screening Diabetes: Retinopathy Screening [facility] Start: 1949 Preventive dental service Diabetes: Dental Exam [facility] Start: 1939 COVID-19 VACCINE (#1) COVID-19 VACCINE (#1) [facility] Start: 1939 Annual Wellness Visit (AWV) Annual Wellness Visit (AWV) [facility] Start: 1939 Echocardiography Echocardiogram [facility] Start: 1939 Hemoglobin A1c measurement Diabetes: Hemoglobin A1C [facility] Start: 1939 Hepatitis B Vaccines (1 of 3 - 3-dose series) Hepatitis B Vaccines (1 of 3 - 3-dose series) [facility] Start: 1939 Medicare Annual Wellness (AWV) Medicare Annual Wellness (AWV) [facility] Start: 1939 Thyroid stimulating hormone measurement TSH Level [facility] Basic Metabolic Pane l w/ Reflex to MG [facility] Work Phone: Comment on above: Daily until discontinued starting 2020, 2 completed Bilirubin measuremen t, urine [facility] End: 09-30-2020 Brain Natriuretic Peptide Brain Natriuretic Peptide Lab Routine Every Third Day for 3 Occurrences starting 09/24/2020 until 09/30/2020, 1 completed [facility] Work Phone: Comment on above: Every Third Day for 3 Occurrences starti ng 09/24/2020 until 09/30/2020, 1 completed End: 09-11-2020 Catheterization and angiography procedure details panel Diagnostic Cardiac Tetryl Nitrator Operator Procedure Cardiac Cath Routine One Time for 1 Occurrences starting 09/11/2020 until 09/11/2020 [facility] Work Phone: Comment on above: One Time for 1 Occurrences starting 08/22 until 09/11/2020 CBC Auto Differential CBC Auto D ifferential Lab Routine Daily until discontinued starting 09/23/2020, 4 completed [facility] Work Phone: Comment on above: Daily until discontinued starting 2020, 4 completed Creatine kinase [Enzymatic activity/volume] in Serum or Plasma [facility] EKG 12 Lead EKG 12 Lead ECG Routine 09/05/2020 7:19 PM EST [facility] Work Phone: Hemoglobin [Presence ] in Urine [facility] End: 09-26-2020 Home O2 eval (desaturation screen) Home O2 eval (desaturation screen) Respiratory Care Routine One Time for 1 Occurrences starting 09/26/2020 until 09/26/2020 [facility] Work Phone: Comment on above: One Time for 1 Occurrences starting 0 03/2021 until 09/26/2020 End: 09-14-2020 Magnesium [Mass/Vol] Magnesium Lab Add-On One Time for 1 Occurrences starting 09/14/2020 until 09/14/2020 [facility] Work Phone: Comment on above: One Time for 1 Occurrences starting 08/22 until 09/14/2020 Measurement of keton es in urine using dipstick [facility] Microscopic urinalysis [facility] Oxygen therapy [[facility]] Initiate Oxygen Therapy Protocol Respiratory Care Routine Daily until discontinued starting 09/11/2020 [facility] Work Phone: Comment on above: Daily until discontinued starting 2020 Patient Education ED Diverticulitis [facility] Work Phone: Patient referral [facility] Work Phone: pH of Urine [facility] Procalcitonin [Mass/volume] in Serum or Plasma [facility] Specific gravity of Urine [facility] Urine blood test [facility] Urine dipstick for glucose [facility] Urine dipstick for leukocyte esterase [facility] Urine dipstick for nitrite [facility] Urine dipstick for protein [facility] Urine examination [facility] Urine microscopy: epithelial cells [facility] Urine Microscopy: wh ite cells [facility] Urobilinogen [Presen ce] in Urine [facility] Immunizations Immunization Date Immunization Notes Care Provider Fa [facility] 05-16-2022 influenza virus vaccine, unspecified formulation Ralph Roth MD Work Phone: [facility] 06-22-[address] Rigoberto Durand Work Phone: [facility] 11-10-2020 Covid (Moderna) Dr. Rigoberto shaver Work Phone: [facility] 10-13-2020 Covid (Moderna) Dr. Rigoberto shaver Work Phone: [facility] 08-24-2020 tetanus toxoid, redu fernando diphtheria toxoid, and acellular pertussis vaccine, adsorbed Ralph Brenda TUTU Work Phone: Payers Date Payer Category Payer Self-pay [id number] 2024 Unknown [id number] 2024 Medicare HMO [employer] MEDICARE [id number] 2024 Private Health Insurance [id number] 2024 Self-pay [id number] 2021 Medicare supplementa l policy (as second payer) AARP [id number] 2022 Unknown AARP AARP [id number] 2021-Present [address] [place] [address] Supplement [id number] 2015 Private Health Insurance [id number] 2004 Medicare [id number] 2004 Medicare [id number] Unknown [id number] [id number] Unknown [id number]. 2.462 Unknown [id number]. 2.462 Unknown [id number] [id number] Unknown [id number]. 2.462 Unknown [id number]. 2.462 Unknown [id number]. 2.462 Unknown [id number]. 2.462 Unknown [id number]. 2.462 Unknown [id number] [id number] Unknown [id number] [id number] Social History Date Type Detail Facility Start: 08-01-2020 End: 02-11-2025 Tobacco smoking status NHIS Former smoker [place] End: 11-08-1999 History of tobacco use Current smoker [place] Start: 08-01-2020 End: 02-15-2025 Cigarettes smoked current (pack per day) - Reported [facility] Start: 08-01-2020 End: 02-11-2025 Tobacco use and exposure Never used [place] Start: 08-01-2020 End: 02-11-2025 Alcohol intake Current drinker of alcohol (finding) [place] Start: 1940 Sex Assigned At Not on file [place] Start: 08-31-2022 End: 03-12-2023 Exposure to SARS-CoV-2 (event) Not sure [place] Start: 09-05-2020 Alcohol Comment occationally [employer] Work Phone: Start: 09-21-2020 Alcohol Comment occasional [facility] Work Phone: Start: 09-21-2021 End: 11-27-2023 Tobacco smoking status WVIS Unknown if ever smoked [facility] Start: 1940 Sex Assigned At Male [facility] End: 11-08-1999 History of tobacco use Cigarette Smoker [facility] Work Phone: Start: 12-19-2021 History SDOH Alcohol Comment occasional wine [facility] Work Phone: Start: 09-10-2022 End: 02-15-2025 Tobacco use panel [facility] Start: 06-08-2011 End: 04-05-2025 Tobacco smoking status NHIS Never smoked tobacco [facility] Work Phone: Start: 03-16-2013 Alcohol intake Current non-dr melter caster of alcohol (finding) [facility] Start: 09-10-2022 Alcohol [facility] Start: 01-09-2024 Alcohol Comment occasionally [facility] Start: 02-18-2022 End: 10-07-2024 Sex Male (finding) [facility] Within the last year , have you been afraid of your partner or ex-partner? No [facility] How often to you hav e a drink containing alcohol? Monthly or less [facility] How many standard drinks containing alcohol do you have on a typical day? 1 or 2 [facility] How often do you hav e 6 or more drinks on 1 occasion? Never [facility] History of tobacco use Passive smoker [facility] How many standard drinks containing alcohol do you have on a typical day? Patient does not drink [facility] The food that (I/we) bought just didn't last, and (I/we) didn't have money to get more. Never true [facility] Start: 02-11-2025 Tobacco Comment Patient states he quit smoking in 1999, no history of vaping or smokeless tobacco. Smoking cessation counseling no indicated. [facility] Medical Equipment Procedure Code Equipment Code Equipment [...] ST MATT/NGUYEN Q UADRA ASSURA MP DEFIBRILLATOR (DISCHARGE COORDINATOR-D) FDA Start: 09-11-2020 ST MATT/NGUYEN Q UADRA ASSURA MP DEFIBRILLATOR (DISCHARGE COORDINATOR-D) FDA Start: 09-11-2020 ST MATT/NGUYEN Q UADRA ASSURA MP DEFIBRILLATOR (DISCHARGE COORDINATOR-D) FDA Start: 09-11-2020 ST MATT/NGUYEN Q UADRA ASSURA MP DEFIBRILLATOR (DISCHARGE COORDINATOR-D) FDA Start: 09-11-2020 ST MATT/NGUYEN Q UADRA ASSURA MP DEFIBRILLATOR (DISCHARGE COORDINATOR-D) FDA Start: 09-11-2020 ST MATT/NGUYEN Q UADRA ASSURA MP DEFIBRILLATOR (DISCHARGE COORDINATOR-D) FDA Start: 09-11-2020 ST MATT/NGUYEN Q UADRA ASSURA MP DEFIBRILLATOR (DISCHARGE COORDINATOR-D) FDA Start: 09-11-2020 ST MATT/NGUYEN Q UADRA ASSURA MP DEFIBRILLATOR (DISCHARGE COORDINATOR-D) FDA Start: 09-11-2020 ST MATT/NGUYEN Q UADRA ASSURA MP DEFIBRILLATOR (DISCHARGE COORDINATOR-D) FDA Start: 09-11-2020 ST MATT/NGUYEN Q UADRA ASSURA MP DEFIBRILLATOR (DISCHARGE COORDINATOR-D) FDA Start: 09-11-2020 ST MATT/NGUYEN Q UADRA ASSURA MP DEFIBRILLATOR (DISCHARGE COORDINATOR-D) FDA Start: 09-11-2020 ST MATT/NGUYEN Q UADRA ASSURA MP DEFIBRILLATOR (DISCHARGE COORDINATOR-D) FDA Start: 09-11-2020 t-Art 3369-4 0q Quadra Assura Mp [id number] Start: 09-10-2020 Ondot Systemso-Card 7122 D urata [id number] Start: 09-10-2020 ST MATT/NGUYEN Q UADRA ASSURA MP DEFIBRILLATOR (DISCHARGE COORDINATOR-D) FDA Start: 09-11-2020 ST MATT/NGUYEN Q UADRA ASSURA MP DEFIBRILLATOR (DISCHARGE COORDINATOR-D) FDA Start: 09-11-2020 ST MATT/NGUYEN Q UADRA ASSURA MP DEFIBRILLATOR (DISCHARGE COORDINATOR-D) FDA Start: 09-11-2020 ST MATT/NGUYEN Q UADRA ASSURA MP DEFIBRILLATOR (DISCHARGE COORDINATOR-D) FDA Start: 09-11-2020 ST MATT/NGUYEN Q UADRA ASSURA MP DEFIBRILLATOR (DISCHARGE COORDINATOR-D) FDA Start: 09-11-2020 ST MATT/NGUYEN Q UADRA ASSURA MP DEFIBRILLATOR (DISCHARGE COORDINATOR-D) FDA Start: 09-11-2020 ST MATT/NGUYEN Q UADRA ASSURA MP DEFIBRILLATOR (DISCHARGE COORDINATOR-D) FDA Start: 09-11-2020 ST MATT/NGUYEN Q UADRA ASSURA MP DEFIBRILLATOR (DISCHARGE COORDINATOR-D) FDA Start: 09-11-2020 ST MATT/NGUYEN Q UADRA ASSURA MP DEFIBRILLATOR (DISCHARGE COORDINATOR-D) FDA Start: 09-11-2020 ST MATT/NGUYEN Q UADRA ASSURA MP DEFIBRILLATOR (DISCHARGE COORDINATOR-D) FDA Start: 09-11-2020 ST MATT/NGUYEN Q UADRA ASSURA MP DEFIBRILLATOR (DISCHARGE COORDINATOR-D) FDA Start: 09-11-2020 ST MATT/NGUYEN Q UADRA ASSURA MP DEFIBRILLATOR (DISCHARGE COORDINATOR-D) FDA Start: 09-11-2020 ST MATT/NGUYEN Q UADRA ASSURA MP DEFIBRILLATOR (DISCHARGE COORDINATOR-D) FDA Start: 09-11-2020 ST MATT/NGUYNE Q UADRA ASSURA MP DEFIBRILLATOR (DISCHARGE COORDINATOR-D) FDA Start: 09-11-2020 ST MATT/NGUYEN Q UADRA ASSURA MP DEFIBRILLATOR (DISCHARGE COORDINATOR-D) FDA Start: 09-11-2020 ST MATT/NGUYEN Q UADRA ASSURA MP DEFIBRILLATOR (DISCHARGE COORDINATOR-D) FDA Start: 09-11-2020 Abbo-Card [id number] Quartet [id number] Start: 09-10-2020 Abbo-Card [id number] Tendril Sts [id number] Start: 09-10-2020 ST MATT/NGUYEN Q UADRA ASSURA MP DEFIBRILLATOR (DISCHARGE COORDINATOR-D) FDA Start: 09-11-2020 ST MATT/NGUYEN Q UADRA ASSURA MP DEFIBRILLATOR (DISCHARGE COORDINATOR-D) FDA Start: 09-11-2020 ST MATT/NGUYEN Q UADRA ASSURA MP DEFIBRILLATOR (DISCHARGE COORDINATOR-D) FDA Start: 09-11-2020 ST MATT/NGUYEN Q UADRA ASSURA MP DEFIBRILLATOR (DISCHARGE COORDINATOR-D) FDA Start: 09-11-2020 ST MATT/NGUYEN Q UADRA ASSURA MP DEFIBRILLATOR (DISCHARGE COORDINATOR-D) FDA Start: 09-11-2020 ST MATT/NGUYEN Q UADRA ASSURA MP DEFIBRILLATOR (DISCHARGE COORDINATOR-D) FDA Start: 09-11-2020 ST MATT/NGUYEN Q UADRA ASSURA MP DEFIBRILLATOR (DISCHARGE COORDINATOR-D) FDA Start: 09-11-2020 ST MATT/NGUYEN Q UADRA ASSURA MP DEFIBRILLATOR (DISCHARGE COORDINATOR-D) FDA Start: 09-11-2020 ST MATT/NGUYEN Q UADRA ASSURA MP DEFIBRILLATOR (DISCHARGE COORDINATOR-D) FDA Start: 09-11-2020 ST MATT/NGUYEN Q UADRA ASSURA MP DEFIBRILLATOR (DISCHARGE COORDINATOR-D) FDA Start: 09-11-2020 ST MATT/NGUYEN Q UADRA ASSURA MP DEFIBRILLATOR (DISCHARGE COORDINATOR-D) FDA Start: 09-11-2020 ST MATT/NGUYEN Q UADRA ASSURA MP DEFIBRILLATOR (DISCHARGE COORDINATOR-D) FDA Start: 09-11-2020 ST MATT/NGUYEN Q UADRA ASSURA MP DEFIBRILLATOR (DISCHARGE COORDINATOR-D) FDA Start: 09-11-2020 ST MATT/NGUYEN Q UADRA ASSURA MP DEFIBRILLATOR (DISCHARGE COORDINATOR-D) FDA Start: 09-11-2020 ST MATT/NGUYEN Q UADRA ASSURA MP DEFIBRILLATOR (DISCHARGE COORDINATOR-D) FDA Start: 09-11-2020 ST MATT/NGUYEN Q UADRA ASSURA MP DEFIBRILLATOR (DISCHARGE COORDINATOR-D) FDA Start: 09-11-2020 Functional Status Date Assessment Result Facility 02-15-2025 Are you deaf, or do you have serious difficulty hearing Yes 02/15/2025 3:03 PM EDT Micah Devries, JAIMIE Yes [facility] 02-15-2025 Are you blind, or do you have serious difficulty seeing, even when wearing glasses No 02/15/2025 3:03 PM EDT Micah Devries, JAIMIE No [facility] 02-15-2025 Do you have serious difficulty walking or climbing stairs Yes 02/15/2025 3:03 PM EDT Micah Devries RN Yes [facility] 02-15-2025 Do you have difficul ty dressing or bathing No 02/15/2025 3:03 PM EDT Micah Devries, JAIMIE No [facility] 02-15-2025 Because of a physica l, mental, or emotional condition, do you have difficulty doing errands alone such as visiting a physician's office or shopping Yes 02/15/2025 3:03 PM EDT Micah Devries, JAIMIE Yes [facility] 02-10-2025 Total score [AUDIT-C] 0 02/11/20 25 6:44 PM EDT Katie Hernández RN [facility] 08-22-2021 Functional status Dangle Feet;Chair [facility] Work Phone: [facility] Mental Status Date Assessment Result Facility 02-15-2025 Because of a physica l, mental, or emotional condition, do you have serious difficulty concentrating, remembering, or making decisions No 02/15/2025 3:03 PM EDT Micah Devries RN No [facility] 11-27-2023 Cognitive function Level Of Cons ciousness Awake;Alert;Appropriate [facility] Work Phone: 08-22-2021 Cognitive function Voice/Name [facility] Work Phone: Clinical Notes 09-26-2020 to 04-07-2025 Note Date & Type Note Facility 04-07-2025 Note [facility] Medical Records Department [address] [place] [address] History Physical Exam 04/07/252026 MR#: [id number] Acct: [id number] Name: MEGAN NASCIMENTO Rep #: [id number] : 1940 84 From: Lv Moreno MD PCP: Dr. Rigoberto Durand MD Status:ADM IN Location: [place] [address] HPI - General General Date of Admission: 04/07/25 Date of Service: 04/07/25 Chief Complaint: Here for rehabilitation. HPI Narrative MGEAN NASCIMENTO, is a 84 Male who presents with followin04/05/2025 [facility] ED fall. Sat on toilet for 4 hours, stood up, slid down. No head injury, no loss of consciousness, EMS found him 5 hours later. Weak, CPK 450, Chest x-ray bilateral pleural effusions. Too weak to walk, admit for placement. 04/05/2025 Admit [facility]. PT/OT/CM for weakness/discharge planning. Treat CHF. 04/05/2025 Echo severe global LV dysfunction. LVEF 10%. 04/06/2025 Shortness of breath better. PT/OT SNF. BNP high, Furosemide 40mg iv bid, fluid restriction, daily weights for acute on chronic HFrEF. Nephrology for acute kidney injury. 04/07/2025 Peer to Peer done for TCU. Furosemide 40mg po bid, Aldactone 12.5mg bid, Entresto 24/26mg 1/2 tablet bid, Metoprolol for acute on chronic HFrEF. Levothyroxine increased to 100mcg daily, for TSH 13.7. Creatinine 2.11. 04/07/2025 Admit to TCU with debility, here for rehabilitation, strengthening prior to discharge home alone. [facility] Medical History (Updated 04/07/25 @ 20:[address] Lv Moreno MD) Hypothyroidism Chronic pain of toe of left foot [...] Unk nown History tablet,extended release 24 hr ioobfhthxghj-hcw-rbtwk acid-vit 1 tab PO DAILY not on pcp med list 06/28/21 Unknown History K-lycop 400 mcg-20 mcg-370 mcg tablet (Men's 50 Plus Multivitamin) tamsulosin 0.4 mg capsule 0.4 mg PO DAILY . 06/28/21 Unknown History pantoprazole 40 mg tablet,delayed 40 mg PO BID #120 tabs 09/21/21 U nknown Rx release gabapentin 400 mg capsule 400 mg PO TID per md office list 0 11/27/23 Unknown History glimepiride 1 mg tablet 1 mg PO DAILY . 11/27/23 Unknown H istory rosuvastatin 20 mg tablet 20 mg PO DAILY per pcp 11/27/23 Un known History acetaminophen 325 mg tablet 650 mg (2 x 325 mg) PO Q6H PRN PRN 12/02/23 Unknown Rx Pain 1-10 Or Fever >100.7 #0 tabs ferrous sulfate 325 mg (65 mg 325 mg PO QODAY #30 tabs 04/07/25 Unknown Rx iron) tablet furosemide 40 mg tablet 40 mg PO BIDLX #0 tabs 04/07/25 Un known Rx insulin lispro 100 unit/mL See Protocol subcut TIDAC #0 mL Unknown Rx subcutaneous pen (Humalog KwikPen (U-100) Insulin) sacubitril 24 mg-valsartan 26 mg 0.5 tab PO BID #0 tabs 04/07/25 Un known Rx tablet sertraline 50 mg tablet 50 mg PO DAILY #0 tabs 04/07/25 Un known Rx spironolactone 25 mg tablet 12.5 mg (1/2 x 25 mg) PO DAILY #0 04/07/25 Unknown Rx tabs Allergy/AdvReac Type Severity Reaction Status Date / Time No Known Allergies Allergy Verified 04/05/25 00:00 Family History Other Cancer Hypertension Surgical History History of permanent cardiac pacemaker placement Social History (Updated 04/07/25 @ 20:[address] Lv Moreno MD) household members: none and other details: Ex lives next door, she has back door entrance into his house. Smoking Status: Never smoker alcohol intake: never substance use type: does not use ROS Constitutional Constitutional: Reports weakness; Denies chills, fever(s) or weight gain ENT HEENT: Denies headache(s), nasal congestion or nasal discharge Cardiovascular Cardiovascular: Denies chest pain or palpitations Respiratory/Chest Respiratory/Chest: Denies cough, excessive phlegm production or shortness of breath with exertion Gastrointestinal Gastrointestinal: Denies abdominal pain, nausea or vomiting Genitourinary Genitourinary: Denies dysuria Musculoskeletal Musculoskeletal: Denies joint pain or joint swelling Integumentary Integumentary: Denies rash or wounds Shahida (more content not included)... [facility] 04-07-2025 Note [facility] Medical Records Department [address] [place] [address] Discharge Summary 04/07/25 1326 MR#: [id number] Acct: [id number] Name: MEGAN NASCIMENTO Rep #: [id number] : 1940 84 From: Jaden Cedillo MD PCP: Dr. Rigoberto Durand MD Status:DIS IN Location: [facility] [id number] Providers Date of Admission: 04/05/25 Date of Discharge: 04/07/25 Primary Care Physician: Dr. Rigoberto Durand MD Consultations 04/05/25 07:42 Consult: Nephrology Routine Consulting Provider: Bushra Woodall Reason for Consult: CKD4, HF exa, incr CPK EMERGENT Consult: No MD Notified: Yes Date Notified: 04/05/25 Time Notified: 07:42 Method of Notification: Text Reason For Visit: GENERALIZED WEAKNESS, FALL, RHABDOMYOLYSIS Diagnosis Discharge Diagnosis (1) CKD (chronic kidney disease), stage IV: Status: Chronic Code(s): N18.4 - Chronic kidney disease, stage 4 (severe) Plan 84-year-old gentleman was admitted with generalized weakness, slid down from rollator to the floor while using bathroom. Denies hitting head or LOC. Patient has a long laying on the floor for approximately more than 5 hours. Inability to take care of himself. 1. Generalized weakness with gentle fall at home???patient is being admitted in PCU. PT and OT. Probably, patient fell due to CHF exacerbation feeling weak and dyspnea on exertion consult case management for discharge planning. 04/06: Patient is too weak. Probably will need SNF. 04/07: [id number] prior authorization for SNF was done. Patient approved for SNF/TCU. 2. Acute on chronic HFrEF:. BNP very high. Chest x-ray individually reviewed shows moderate bilateral effusion with bibasilar atelectasis. Central pulmonary congestion and interstitial congestion. Change furosemide 40 mg p.o. twice daily to IV. Heart failure core measures including intake and output, fluid restriction less than 1500 mL, daily weight monitoring, kidney and electrolytes monitoring. 04/06 patient pulse ox 99% on room air. Continue furosemide 04/07: Nurse asked me to see leg. There is venous hypertension with chronic congestion of lower legs probably from chronic scarring of lower legs from bound. Patient might have damage of lymphatics and superficial veins. He is a diabetic. No pain tenderness or induration therefore does not seem cellulitis. Patient was also on doxycycline. Patient discharged on furosemide 40 mg p.o. twice daily, spironolactone 12.5 mg twice daily, Entresto, metoprolol succinate and atorvastatin. Follow-up in cardiology office. 3. Diabetes mellitus type 2: Discontinue Amaryl. Serum glucose is in 80s. Continue routine insulin therapy, 04/06 glucose 71, 123 and 113 4. Hypothyroidism: TSH is elevated 13.7. Levothyroxine dose increased to 100 mcg daily. Free T4 thyroxine 1.20. 5. DVT prophylaxis, high risk???heparin 5000 subcutaneous every 12 hourly. Bilateral SCDs. Patient also high risk of bleeding due to CKD stage IV 6. Chronic kidney disease stage IV: Baseline creatinine clearance about 20- 25 mL/min. Creatinine around 2.3. UA benign., No significant proteinuria. CT abdomen with IV contrast on 04/01 without any hydronephrosis. Bilateral renal atrophy. Bladder unremarkable marketing planning manager consulted. Consult reviewed and appreciated 04/06: Creatinine improving, 2.11 at baseline. 04/07: Creatinine is same 2.11. Follow-up with nephrology. Patient might be benefited by SGL 2 inhibitor empagliflozin to reduce the risk of sustained eGFR decline/ESKD/CV in view of HFrEF 7. CODE STATUS???full code verified. Discharge medication reconciliation done. Discharge follow-up instructions completed. Discharge process discussed with the patient and all questions were answered to patient's satisfaction. Follow with PCP in 1 to 2 weeks Total time spent, exact 35 minutes on discharge meds reconciliation, examination, coordination of care with nurses and ancillary staff, review of imaging and blood test and discussion with the patient on follow-up instructions. Laboratory Results 04/06/25 02:20: Urine Color Yellow, Urine Clarity Clear, Urine pH 6.0, Ur Specific Clarks 1.015, U rine Protein 15 H, Urine Glucose (UA) Normal, Urine Ketones Negative, Urine Occult Blood Negative, Urine Nitrite Negative, Urine Bilirubin Negative, Urine Urobilinogen Normal, Ur Leukocyte Esterase Negative, Urine RBC 0 SEEN, Urine WBC 0 SEEN, Ur Squamous Epith Cells 0 SEEN, Urine Bacteria 0 SEEN, Urine Mucus 0 SEEN 04/06/25 04:44: WBC 3.8 L, RBC 5.00, Hgb 14.6, Hct 42.9, MCV 85.8, MCH 29.2, MCHC 34.0, RDW Std Deviation 60.6 H, RDW Coeff of Anuradha 19.9 H, Plt Count 155, MPV 10.4, Immature Gran % (Auto) 0.500, Neut % (Auto) 56.4, Lymph % (Auto) 21.7, Catawba % (Auto) 12.8 H, Eos % (Auto) 6.8 H, Baso % (Auto) 1.8 H, Absolute Neuts (auto) 2.2, Absolute Lymphs (auto) 0.83, Nucleated RBC % 0, Sodium 141, Potassium 2.9 L, Chloride (more content not included)... [facility] 04-05-2025 History and physi shauna note [facility] 04-05-2025 Discharge summary [facility] 04-05-2025 Note [facility] Medical Records Department [address] [place] [address] History Physical Exam 04/05/25 0229 MR#: [id number] Acct: [id number] Name: MEGAN NASCIMENTO Rep #: [id number] : 1940 84 From: Rigoberto Durand MD PCP: Dr. Rigoberto Durand MD Status:REG ER Location: ED HPI - General General Date of Admission: 04/05/25 Date of Service: 04/05/25 Chief Complaint: Fall/generalized weakness HPI Narrative MEGAN NASCIMENTO, is a 84 M who presents to the emergency room by squad after falling at home and remaining on the ground for more than 4 hours. Patient has a significant past medical history of congestive heart failure, insulin-dependent diabetes type 2, hypothyroidism and hypertension and lives at home alone. After using the restroom at home at approximately 2:00 this afternoon the patient remained in the restroom until approximately 6 PM but was unable to get up on his own and use the rollator to slide down to the floor shower area where he remained until help arrived. He states he did not strike his head or lose consciousness. He laid there until he was found and EMS was able to help him up after approximately 5 more hours. He denied any chest pain, shortness of breath, fevers or chills but due to concern for generalized weakness and inability to care for himself adequately there was concern as well for rhabdomyolysis he was brought in for further evaluation. Laboratory studies reveal white blood cell count of 6.0, hemoglobin 16.2, hematocrit 46.9, platelets 194, sodium 141, potassium 3.7, chloride 103, bicarb 19.6, BUN 36, creatinine 2.38, creatinine kinase 449, BN TP 70,000, TSH 13.7, chest x-ray shows moderate pleural effusions and moderate vascular congestion with an enlarged cardiac silhouette. Patient is well-known to me as he has been my patient in the outpatient setting for many years and we did discuss his CODE STATUS at this visit and he wishes to remain full code at present time. He will be admitted for generalized weakness, CHF and likely will need placement in rehab facility for strength and rehab. [facility] Medical History (Updated 04/05/25 @ 02:[address] Rigoberto Durand MD) Chronic pain of toe of left foot [...] Unk nown History tablet,extended release 24 hr zgzdwmbvzkqe-mmr-ufztb acid-vit 1 tab PO DAILY not on [...] Pain 1-10 Or Fever >100.7 #0 tabs doxycycline monohydrate 100 mg 100 mg PO BID 5 days #10 caps 11/18 11/11 Unknown Rx capsule insulin lispro 100 unit/mL See Protocol subcut TIDAC #0 mL Unknown Rx subcutaneous pen (Humalog KwikPen (U-100) Insulin) miconazole nitrate 2 % topical 1 applic topical BID #0 grams 11/18 11/11 Unknown Rx cream oxycodone 5 mg tablet 2.5 - (more content not included)... [facility] 04-05-2025 Radiology Diagnostic study note [facility] Imaging Services [address] [place] [address] Chest 1 View (Portable) MR#: [id number] Acct: [id number] Name: MEGAN NASCIMENTO Rep #: [id number] : 1940 M 84 From: Oswaldo Lu MD PCP: Dr. Rigoberto Durand MD Status: REG E R Study:Chest 1 View (Portable) Date of Exam: 04/05/25 Exam# [id number] Ordering Dr: Emily Taveras DO PROCEDURE: CHEST 1 VIEW (PORTABLE) 04/05/2025 REASON FOR EXAM: CHF TECHNIQUE: Frontal view of the chest. COMPARISON: CT scan of the chest on 04/01/2025. FINDINGS: Moderate bilateral pleural effusions. Passive atelectatic airspace disease of the lower lobes. Moderate central pulmonary venous congestion. Moderate interstitial pulmonary congestion. AICD is in good position. Enlarged cardiac silhouette. Normal mediastinum and antonio. Normal visualized pulmonary arteries. Atheromatous plaques of the visualized aortic arch and descending thoracic aorta. Diffuse spondylosis of the visualized thoracic spine. Normal visualized ribs, clavicles. Degenerative joint disease. There is no demonstrated abnormality of the visualized soft tissue structures ofthe upper abdomen. RAD/Chest 1 View (Portable) IMPRESSION: Moderate bilateral pleural effusions. Passive atelectatic airspace disease of the lower lobes. Moderate central pulmonary venous congestion. Moderate interstitial pulmonary congestion. AICD is in good position. Enlarged cardiac silhouette. Reading Location: [place] [address] CC: Dr. Rigoberto Durand MD; Shaun Taveras DO ~ Stockroom Clerk: Signed [facility] 04-01-2025 Discharge summary [facility] 04-01-2025 Radiology Diagnostic study note [facility] Imaging Services [address] [place] [address] CT Chest, Abd, Pel w/Contrast MR#: [id number] Acct: [id number] Name: MEGAN NASCIMENTO Rep #: [id number] : 1940 M 84 From: Can Gerber MD PCP: Dr. Rigoberto Durand MD Status: REG E R Study:CT Chest, Abd, Pel w/Contrast Date of E xam: 04/01/25 Exam# [id number] Ordering Dr: Larissa Romero DO PROCEDURE: CT [...] of the liver. Sigmoid diverticulosis. Reading Location: [id number] CC: Dr. Rigoberto Durand MD; Dr. 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 He states that over the last month he has had approximately 4 falls and states that ever since he had been diagnosed with diverticulitis. He does live alone. [facility] Medical History Chronic pain of toe of [...] 04/10 Unknown History tablet,extended release 24 hr gzxgzultcrdh-oql-nxrfj acid-vit 1 tab PO DAILY not on [...] following commands and that he [facility] at [facility] theyear is 2024 Skin: Warm, dry, see [...] (Auto) 66.1 Lymph % (Auto) 18.1 L Catawba % (Auto) 10.6 H Eos % (Auto) [...] CHRONIC CHANGES. NO ACUTE FINDINGS. Reading Location: [id number] Cervical Spine CT 04/01/25 12:45 IMPRESSION: Multilevel disc space narrowing and degeneration with the multilevel neural foraminal stenosis and facet joint osteoarthritis. Reading Location: [id number] Chest/Abdomen/Pelvis CT 04/01/25 12:45 IMPRESSION: Bilateral pleural effusions right greater than left with bibasilar atelectasis. Ascites. Stable bilateral renal cysts more prominent on the left side. Fatty infiltration of the liver. Sigmoid diverticulosis. Reading Location: [id number] Discharge Plan Triage Chief Complaint: Fall ED [...] printed off for your records. Print Language: Mauritanian Disposition Disposition: Home, Self Care What to do if you have Problems For any increased pain, shortness of breath, bleeding, nausea or vomiting, chestpain, or any unexpected problems, contact your Primary Care Provider. Call [facility] ([phone]) or report to the closest Emergency Room. Call 911 if necessary. 04/01/25 8534 <Electronically signed by Dax Romero DO> Cosigner Signature (if applicable): CC: Dr. Rigoberto Durand MD ~ Signed [facility] Work Phone: 1(295) 190-499009-12-2025 Radiology Diagnostic study note [facility] Imaging Services [address] [place] [address] Spine Cervical without Contras MR#: [id number] Acct: [id number] Name: MEGAN NASCIMENTO Rep #: [id number] : 1940 M 84 From: Can Gerber MD PCP: Dr. Rigoberto Durand MD Status: REG E R Study:Spine Cervical without Contras Date of Exam: 04/01/25 Exam# [id number] Ordering Dr: Larissa Romero DO PROCEDURE: SPINE [...] stenosis and facet joint osteoarthritis. Reading Location: [id number] CC: Dr. Rigoberto Durand MD; Dr. Dax Romero DO ~ Stockroom Clerk: Signed [facility]09-12-2025 Radiology Diagnostic study note [facility] Imaging Services [address] [place] [id number] Brain/Head without Contrast MR#: [id number] Acct: [id number] Name: MEGAN NASCIMENTO Rep #: [id number] : 1940 M 84 From: Can Gerber MD PCP: Dr. Rigoberto Durand MD Status: REG E R Study:Brain/Head without Contrast Date of Exa m: 04/01/25 Exam# [id number] Ordering Dr: Larissa Romero DO PROCEDURE: BRAIN/HEAD [...] CHRONIC CHANGES. NO ACUTE FINDINGS. Reading Location: [id number] CC: Dr. Rigoberto Durand MD; Dr. Dax Romero DO ~ Stockroom Clerk: Signed [facility]09-01-2025 Evaluation note* Diagnosis Onset Date Resolution Status Admit Date Congestive heart failure acute April 05, 2025 2:38am Diabetes acute March 2:38am Fall acute March 2:38am Generalized weakness acute Mar emb2024 2:38am Rhabdomyolysis acute April 05, 2025 2:38am [facility] Work Phone: 1(371) 327-974508-20-2025 Note03/09/25 CHW Transitions Outreach in regards to [...] were you homeless or living in a chcf (including now)? N Transportation Needs In the [...] than 3 How often do you attend lutheran or islam services? Pt Declined Do you belong to any clubs or organizations such as lutheran groups, unions, fraternal or athletic groups, or [...] In the past 12 months has the [employer], gas, oil, or water crossvertise threatened to shut off services in your home? No Health Literacy How often do you need to have someone help you when you read instructions, pamphlets, or other written material from your doctor or pharmacy? Patient declines to respond --- -Feeling very good. -[facility] PT/OT was supposed to be out a day or so ago but hasn't come. -Weight is good, down to 177 lb. Reports on leg swelling or SOB. -Aware of upcoming [facility] appointments. -Taking all medications as prescribed. -Does not need any financial, transportation, or food assistance, he's doing just fine. -Community health worker assistance is not needed at this time. Transitions Follow-up: -CHW avail for follow up calls. -RN continue to follow. -#3 transition outreach call complete. [facility] upcoming appointments: -05/04 Cardiology -06/03 Cardiology Jamila Diazs, [place] [phone]08-14-2025 History of Present illness Narrative* Petra Renteria APRN - TUBE DRAW HELPER - 03/03/2025 2:30 PM EDT Images from the original note were not included. [facility] Cardiology Office Note DATE of SERVICE: 03/03/25 [...] defibrillator placement. He was recently admitted to [facility] 01/28/2025-02/01/2025 and treated for heart failure [...] is important to call the office. 2. DISCHARGE COORDINATOR D-monitored regularly by the device clinic 3. [...] incontact with Megan once available. Petra Renteria OFFICE RN/TUBE DRAW HELPER [1] Past Medical History: Diagnosis Date Acute HFrEF (heart failure with reduced ejection fraction) ([facility]) 09/22/2020 Bladder cancer (HCC) CHF (congestive heart failure) ([facility]) Chronic HFrEF (heart failure with reduced ejection fraction) ([facility]) 09/21/2020 Chronic kidney disease DM (diabetes mellitus) (HCC) DM (diabetes mellitus) (HCC) DVT (deep venous thrombosis) ([facility]) ED (erectile dysfunction) Follicular non-Hodgkin's lymphoma (HCC) GERD (gastroesophageal reflux disease) GERD (gastroesophageal reflux disease) HTN (hypertension) HTN (hypertension) Hyperlipidemia Left bundle branch block 09/11/2020 Non-ischemic cardiomyopathy (CMS/HCC) ([facility]) Presence of cardiac resynchronization therapy defibrillator (DISCHARGE COORDINATOR-D) 01/17/2022 PUD (peptic ulcer disease) Pulmonary embolism [...] 200 tablet, Rfl: 1 documented in this [facility]08-13-2025 History of Present illness Narrative* Jany [...] to see (Everton Renteria CNP) tomorrow.) Was C initiated if ordered? Yes (JULIO/PT) Does patient have all necessary follow up [...] scrum coach needs? Yes (Will route to Jamila SHEARER, to complete SDOH and follow up with patient next week.) Spoke with patient. Re-introduced myself and my role on [facility]'s transitional team. He reports that the [...] was thrown off this morning since the [facility] nurse was out. He denies any swelling [...] looking?Any s/s of cellulitis?). documented in this [facility]07-31-2025 History of Present illness Narrative* Jany Bonilla RN - 02/17/2025 1:44 PM EDT 02/17/25 1332 Transitions Post-Discharge Call - Initial Reviewed patients discharge instructions? 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 Yes Medication reconciliation complete? Partially [...] HHC ordered? Yes If yes, which agency? [facility] [place] Was HHC initiated if ordered? Yes (Patient [...] that his PCP was listed incorrectly in [facility]. PCP updated in [facility]. Patient reports that he sees Dr. Bourne. [...] he see/schedule with cardiology/PCP?). documented in this [facility]07-29-2025 NoteStart PACC Note Home Health Referral Educated patient and son on Home Care and services available. Patient offered choice of available HHC and agreeable to SN, PT services with [facility] - [facility]. Care Types: [...] is noted as yes - consider a DIRECTOR OF GLOBAL SALES evaluation once the patient returns home. START PATIENT REGISTRATION INFORMATION Order Information Order Signing Physician: Lisa Muniz, DO Service Ordered RN ?: Yes Service Ordered PT ?: Yes Service Ordered OT ?: No Service Ordered ST ?: No Service Ordered DIRECTOR OF GLOBAL SALES?:No Service Ordered BUSINESS MACHINE MECHANIC?: No Following Physician: Dr Rigoberto Durand Following Physician Overseeing Physician: Dr Rigoberto Durand (Required for Residents only) Agreeable to Follow? Yes Date/Time of Call 02/15/25 4:05 PM, Spoke with: GONZALO Care Coordination Same Day SOC?: No Primary Care Physician: Dr Rigoberto Durand Primary Care Physician Primary Care Physician Address: [address] [place] [address], [place] [address] Visit Instructions: N/A Service Discharge Location Type: Home with Home Care Service Facility Name: N/A Service Floor Facility: N/A Service Room No: N/A Demographics Patient Last Name: Azam Patient First Name: Megan Language/Communication Barrier: NA Service Address: [address] [place] [address] [address] Service City: [place] Service ST: [place] Service ZIP: [address] Service (home) Other phone numbers: Telephone Information: Emergency Contact: Extended Emergency Contact Information Primary Emergency Contact: AzamZuleyka Mobile Relation: Adult Basic Education Instructor Secondary Emergency Contact: Negrito Nascimentosa Relation: Child Admission Information Admit Date: 02/10/2025 Patient status at discharge: Observation Admitting Diagnosis: Cellulitis [L03.90] Cellulitis of lower extremity, unspecified laterality [L03.119] Caregiver Information Caregiver First Name: Zuleyka Caregiver Last Name: Azam Caregiver Relationship to Patient CG Caregiver Caregiver Notes: N/A Pinevio-Tech List No END PATIENT REGISTRATION INFORMATION Pt [...] GONZALO Discharge Date: 02/15/25 Referral Source-PACC: (Hospital/Unit): [facility] / [id number] B End PACC [facility]07-29-2025 Patient's home Note* Home Care - Maria Antonia Mcmullen RN - 02/15/2025 4:05 PM EDT Start PACC Note Home Health Referral Educated patient and son on Home Care and services available. Patient offered choice of available HHC and agreeable to SN, PT services with [facility] - [facility] Care. Care Types: [...] is noted as yes - consider a DIRECTOR OF GLOBAL SALES evaluation once the patient returns home. START PATIENT REGISTRATION INFORMATION Order Information Order Signing Physician: Lisa Muniz, DO Service Ordered RN ?: Yes Service Ordered PT ?: Yes Service Ordered OT ?: No Service Ordered ST ?: No Service Ordered DIRECTOR OF GLOBAL SALES?:No Service Ordered BUSINESS MACHINE MECHANIC?: No Following Physician: Dr Rigoberto Durand Following Physician Overseeing Physician: Dr Rigoberto Durand (Required for Residents only) Agreeable to Follow? Yes Date/Time of Call 02/15/25 4:05 PM, Spoke with: GONZALO Care Coordination Same Day SOC?: No Primary Care Physician: Dr Rigoberto Durand Primary Care Physician Primary Care Physician Address: [address] [place] [address] Visit Instructions: N/A Service Discharge Location Type: Home with Home Care Service Facility Name: N/A Service Floor Facility: N/A Service Room No: N/A Demographics Patient Last Name: Azam Patient First Name: Megan Language/Communication Barrier: NA Service Address: [address] [place] [address] [address] Service City: [facility] ST: [place] Service ZIP: [address] Service (home) Other phone numbers: Telephone Information: Emergency Contact: Extended Emergency Contact Information Primary Emergency Contact: Zuleyka Nascimento Mobile Relation: Adult Basic Education Instructor Secondary Emergency Contact: Shaylee Nascimento Relation: Child [...] GONZALO Discharge Date: 02/15/25 Referral Source-PACC: (Hospital/Unit): [facility] / [id number] B End PACC Note [id number] M[facility]* Home Care - Maria Antonia Mcmullen RN - 02/15/2025 4:05 PM EDT Start PACC Note Home Health Referral Educated patient and son on Home Care and services available. Patient offered choice of available HHC and agreeable to SN, PT services with [facility] - Home Care. Care Types: [...] is noted as yes - consider a DIRECTOR OF GLOBAL SALES evaluation once the patient returns home. START PATIENT REGISTRATION INFORMATION Order Information Order Signing Physician: Lisa Muniz, DO Service Ordered RN ?: Yes Service Ordered PT ?: Yes Service Ordered OT ?: No Service Ordered ST ?: No Service Ordered DIRECTOR OF GLOBAL SALES?:No Service Ordered BUSINESS MACHINE MECHANIC?: No Following Physician: Dr Rigoberto Durand Following Physician Overseeing Physician: Dr Rigoberto Durand (Required for Residents only) Agreeable to Follow? Yes Date/Time of Call 02/15/25 4:05 PM, Spoke with: GONZALO Care Coordination Same Day SOC?: No Primary Care Physician: Dr Rigoberto Durand Primary Care Physician Primary Care Physician Address: [address] [place] [address], [place] [address] Visit Instructions: N/A Service Discharge Location Type: Home with Home Care Service Facility Name: N/A Service Floor Facility: N/A Service Room No: N/A Demographics Patient Last Name: Azam Patient First Name: Megan Language/Communication Barrier: NA Service Address: [address] [place] [address] Service City: [facility] ST: [place] Service ZIP: [address] Service (home) Other phone numbers: Telephone Information: Emergency Contact: Extended Emergency Contact Information Primary Emergency Contact: AzamZuleyka Mobile Relation: Adult Basic Education Instructor Secondary Emergency Contact: Negrito Nascimentosa Relation: Child Admission Information Admit Date: 02/10/2025 Patient status at discharge: Observation Admitting Diagnosis: Cellulitis [L03.90] Cellulitis of lower extremity, unspecified laterality [L03.119] Caregiver Information Caregiver First Name: Zuleyka Caregiver Last Name: Azam Caregiver Relationship to Patient CG Caregiver Caregiver Notes: N/A Pinevio-Huiyuan List No END PATIENT REGISTRATION INFORMATION Pt [...] GONZALO Discharge Date: 02/15/25 Referral Source-PACC: (Hospital/Unit): [facility] / [id number] B End PACC Note * Care Coordination - NATALYA Petersen - 02/14/2025 4:08 PM EDT SRIRAM met with pt at [facility] to complete the 30 day Readmission questionnaire. SW asked for pt's consent and pt agreed. Pt was cooperative and answered all questions. SW will email questionnaire at the end of the week to [email or web address] * Care Coordination - Jewels Ortiz RN [...] 04/04. Barriers/Today we still Wait: Clinical stability, Sales Merchandise Associate recommendations (ID), Symptomatic control Length of Stay [...] home, possible need for therapy to eval. [facility] to follow. Barriers/Today we still Wait: IV ATBX, ID final recs. Clinical stability. Length of Stay (Days): 1 GMLOS: No GMLOS Documented * Home Care - Maria Antonia Mcmullen RN - 02/11/2025 8:39 AM EDT Patient is currently active with [facility]. The patients current certification period will on 04/04/2025. The patient is currently receiving SN, PT services through the agency. Safety Physician to continue to follow. documented in this [facility]07-29-2025 Nurse Note* Micah Devries RN - 02/15/2025 3:25 PM EDT Pt ok to discharge home per , vs wnl. Pt understood discharge instructions. Son to transport pt home. IV removed prior to pt leaving hospital. Pt received meds to bed. [facility] [id number] Nurse Note* Micah Devries RN - 02/15/2025 [...] Back, Elbows, Occiput and ears all intact. [place] and blanchable tissues noted to coccyx. Instructed [...] applied to both feet. documented in this [facility]07-29-2025 NoteHospitalist Discharge Summary Megan Kalen Nascimento : 1940 Admit date: 02/10/2025 Discharge [...] to home. LABS: CBC: Recent Labs 02/13/25 0502/14/2521902/15/25 0018 WBC 4.4 4.5 4.0 RBC 5.52 5.36 5.29 HGB 15.6 15.3 15.2 HCT 48.4 46.2 45.9 MCV 87.7 86.2 86.8 RDW 19.2* 19.2* 19.1* PLT 224 209 205 BMP: Recent Labs 02/13/25 0502/14/2521902/15/25 0018 NA 142 141 141 K 3.8 [...] to [facility] [address] [facility] [address] Hours: Friday to Friday 10 am to 6 pm amoxicillin-clavulanate 875-125 MG tablet Recommended Follow-up: PCP outpatient in 1-2 weeks. @[email or web address]@ Complexity of Follow up: [] Moderate Complexity: follow up within 7-14 calendar days (48688) [x] Severe Complexity: follow up within 7 calendar days (31407) Follow up Testing, Pending results or Referrals at Transitional Care Visit: [x] yes [] no Instructions to MA: Please call patient on day after discharge (must document patient contacted within 2 business days of discharge). Follow up questions for MA: 1. Did you get medications filled and taking them as instructed from discharge? 2. Are you following your d (more content not included)...[facility]07-29-2025 Hospital course Narrative* Lisa Muniz DO - [...] home. LABS: CBC: Recent Labs 02/13/25 0531 02/14/25 0220 02/15/25 0018 WBC 4.4 4.5 4.0 RBC [...] to [facility] [address] [place] [address] Hours: Friday to Friday 10 am to 6 pm amoxicillin-clavulanate 875-125 MG tablet Recommended Follow-up: PCP outpatient in 1-2 weeks. @READMISSIONRISK@ Complexity of Follow up: [] Moderate Complexity: follow up within 7-14 calendar days (81508) [x] Severe Complexity: follow up within 7 calendar days (83271) Follow up Testing, Pending results or Referrals [...] DO Division of Hospitalist Medicine Inpatient Medical Services/[facility] 02/15/2025, 2:51 PM Total time Spent on Discharge: 32 minutes documented in this [facility]07-28-2025 Progress note* Care Coordination - NATALYA Petersen - 02/14/2025 4:08 PM EDT SRIRAM met with pt at [facility] to complete the 30 day Readmission questionnaire. SW asked for pt's consent and pt agreed. Pt was cooperative and answered all questions. SRIRAM will email questionnaire at the end of the week to [email or web address] [id number] NoteCare Management Progress Note Short Medical why still here: Patient remains on 4S today for BLE cellulitis. IV ATBX coverage continued. Complaints of continued lower extremity pain/erythema. Pain control prn. CHF, diuresis continued po. ID following. Monitoring labs/lytes. VSS, on RA. Planned Discharge Disposition: Home Health Services, active with [facility] through 04/04. Barriers/Today we still Wait: Clinical stability, Sales Merchandise Associate recommendations (ID), Symptomatic control Length of Stay (Days): 4 GMLOS: 3.[address] [facility]07-28-2025 Progress note* Care Coordination - Jewels Ortiz RN - 02/14/2025 2:16 PM EDT Care Management Progress Note Short Medical why still here: Patient remains on 4S today for BLE cellulitis. IV ATBX coverage continued. Complaints of continued lower extremity pain/erythema. Pain control prn. CHF, diuresis continued po. ID following. Monitoring labs/lytes. VSS, on RA. Planned Discharge Disposition: [facility], active with [facility] through 04/04. Barriers/Today we still Wait: Clinical stability, Sales Merchandise Associate recommendations (ID), Symptomatic control Length of Stay (Days): 4 GMLOS: 3.1 [facility] [id number] [facility] - Infectious Diseases Attending Progress Note [...] Lab Results Component Value Date/Time WBC 4.5 02/14/2025219 WBC 9.4 01/09/2024 1206 HGB 15.3 02/14/2025 [...] Compression hose. Podiatry in outpt for nail care.[facility] [id number] History of Present illness Narrative* Mannie Samuel MD - 02/14/2025 11:14 AM EDT [facility] - [facility]ious Diseases Attending Progress [...] 02/14/2025219 CL 107 02/14/2025219 CO2 21 (L) 02/14/2025219 CO2 25 01/09/2024 1206 BUN 22 02/14/2025219 [...] Lab Results Component Value Date/Time WBC 4.5 02/14/2025219 WBC 9.4 01/09/2024 1206 HGB 15.3 02/14/2025219 HGB 12.6 (L) 01/09/2024 1206 HCT 46.2 02/14/20250 HCT 38.0 (L) 01/09/2024 1206 PLT 209 02/14/20250 GRANULOCYTES 57.5 05/21/2021 0523 LYMPHOPCT 20.6 01/29/2025 06 MONOPCT 8.0 01/29/2025 06 LABEOS 11.8 (H) 05/21/2021 0523 BASOPCT 1.5 [...] were not included. Hospitalist Progress Note 02/14/2025 [phone]: Please page me ([phone]) for patient care issues. [phone]: Please page [facility] night Hospitalist for any issues. Subjective: Admit Date: 02/10/2025 PCP: Gibson Roth (Inactive) Room#: B4-029/B4-854 B Interval History: Patient is sitting on the bed, lower extremity pain improving. Denies any chest pain shortness of breath or palpitations. Adult diet Regular; No Added Salt (3-4 gm); 5 carb choices (75 gm/meal) @[id number]@ 24HR INTAKE/OUTPUT: Intake/Output Summary (Last 24 hours) [...] ejection fraction of 41% on echocardiogram 01/31/2025-s/p DISCHARGE COORDINATOR-D Follicular non-Hodgkin's lymphoma. Hypothyroidism. Bladder cancer Gastroesophageal [...] MD Division of Hospitalist Medicine Inpatient Medical Services/[facility] [place] PAGER: [phone] [1] Past Medical History: Diagnosis Date Acute HFrEF (heart failure with reduced ejection fraction) (HCC) 09/22/2020 Bladder cancer (HCC) CHF (congestive heart failure) (HCC) Chronic HFrEF (heart failure with reduced ejection fraction) ([facility]) 09/21/2020 Chronic kidney disease DM (diabetes mellitus) (HCC) DM (diabetes mellitus) (HCC) DVT (deep venous thrombosis) (HCC) ED (erectile dysfunction) Follicular non-Hodgkin's lymphoma (HCC) GERD (gastroesophageal reflux disease) GERD (gastroesophageal reflux disease) HTN (hypertension) HTN (hypertension) Hyperlipidemia Left bundle branch block 09/11/2020 Non-ischemic cardiomyopathy (CMS/HCC) (HCC) Presence of cardiac resynchronization therapy defibrillator (DISCHARGE COORDINATOR-D) 01/17/2022 PUD (peptic ulcer disease) Pulmonary embolism [...] note were not included. Hospitalist Progress Note 02/13/2025 [phone]: Please page me ([phone]) for patient care issues. [phone]: Please page [facility] night Hospitalist for any issues. Subjective: Admit Date: 02/10/2025 PCP: Gibson Roth (Inactive) Room#: D5-049/I7-038 B Interval History: Patient is lying on the bed, complaining of pain in the lower extremities Denies any chest pain shortness of breath or palpitations No other significant overnight issues. Adult diet Regular; No Added Salt (3-4 gm); 5 carb choices (75 gm/meal) @[id number]@ 24HR INTAKE/OUTPUT: Intake/Output Summary (Last 24 hours) at 02/13/2025 1510 Last data filed at 02/12/2025 1958 Gross per 24 hour Intake 240 ml Output 600 ml Net -360 ml Past Medical History: Medical History[1] LABS: CBC: Recent Labs 02/12/25 0519 02/13/25 0531 WBC 3.7 4.4 RBC 5.16 5.52 HGB 15.1 15.6 HCT 44.7 48.4 MCV 86.6 87.7 RDW 18.5* 19.2* PLT 205 224 BMP: Recent Labs 02/12/25 0519 02/13/25 0531 NA 141 142 K 2.8* 3.8 [...] ejection fraction of 41% on echocardiogram 01/31/2025-s/p DISCHARGE COORDINATOR-D Follicular non-Hodgkin's lymphoma. Hypothyroidism. Bladder cancer Gastroesophageal [...] MD Division of Hospitalist Medicine Inpatient Medical Services/[facility] [place] PAGER: [phone] [1] Past Medical History: Diagnosis Date Acute HFrEF (heart failure with reduced ejection fraction) ([facility]) 09/22/2020 Bladder cancer (HCC) CHF (congestive heart failure) (HCC) Chronic HFrEF (heart failure with reduced ejection fraction) ([facility]) 09/21/2020 Chronic kidney disease DM (diabetes mellitus) (HCC) DM (diabetes mellitus) (HCC) DVT (deep venous thrombosis) (HCC) ED (erectile dysfunction) Follicular non-Hodgkin's lymphoma (HCC) GERD (gastroesophageal reflux disease) GERD (gastroesophageal reflux disease) HTN (hypertension) HTN (hypertension) Hyperlipidemia Left bundle branch block 09/11/2020 Non-ischemic cardiomyopathy (CMS/HCC) ([facility]) Presence of cardiac resynchronization therapy defibrillator (DISCHARGE COORDINATOR-D) 01/17/2022 PUD (peptic ulcer disease) Pulmonary embolism [...] Unable to assess Fluid Accumulation: Severe Extremities 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 Recent admit 01/28-02/01/[address] [facility] with volume overload and CHF Exacerbation. 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 Treated with IV Lasix and transitioned to 40 mG Torsemide prior to discharge. On day of discharge with weight of 186.6#, and he was discharged home in improved condition. He currently presents to [facility] with worsening swelling, redness, and pain in bilaterallower extremities- presumed cellulitis. Noted weight of 182.4# on evening of 02/09/25. Significant labs on admit: Gap(17), Creatinine(1.94), AST(39), bilirubin(1.8),BNP(>26221). Negative venous duplex imaging. ID consulted and following with plans to transition form IV cefetpime to PO antibiotics. Pleasant and interactive, resting in bed at time of assessment with bed scale weight of 80.7 kg or177.9# obtained. Noted patient ate ~75% breakfast tray (observed by this RDN). Cites appetite is okay , +diarrhea and early satiety. 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 While he has used ONS in thepast- declined a this time due to loose stooling. Requested A brownie and milk, liberlized diet. Estimated Daily Nutrient Needs: Energy Requirements Based On: Kcal/kg Weight Used for Energy Requirements: Yolyn Weight for Energy Calculation (kg): 67 kg Total Energy Requirements (kcals/day): 5450-4445 (25-30 kcal/kg IBW) Weight Used for Protein Requirements: Yolyn Weight in Kg Used for Protein Requirements: [...] 01/26/25;186.6# 02/01/25) % Weight Change (Calculated): -4.7 Yolyn Body Weight (lbs) (Calculated): 148 lbs Yolyn Body Weight (Kg) (Calculated): 67 kg % Yolyn Body Weight (Calculated): 120.2 % BMI (kg/m2) (Calculated): 27.9 Weight Adjustment For: No Adjustment BMI Categories: Overweight (BMI 25.0-29.9) Nutrition Diagnosis: Altered nutrition-related lab values related to cardiac dysfunction as evidenced by localized or generalized fluid accumulation, lab values Nutrition Interventions: Nutrition Education/Counseling: Education not indicated Coordination of Nutrition Care: Continue to monitor while inpatient Plan of Care discussed with: patient and INFORMATION SYSTEMS PROJECT MANAGER Goals: Previous Goal Met: Progressing toward Goal(s) Goals: PO intake 50% or greater Nutrition Monitoring and Evaluation: Behavioral-Environmental Outcomes: None Identified Food/Nutrient Intake Outcomes: Food and Nutrient Intake Physical Signs/Symptoms Outcomes: Biochemical Data, Chewing or Swallowing, Diarrhea, Nutrition Focused Physical Findings, Skin, Weight, Meal Time Behavior, Hemodynamic Status, Fluid Status or Edema Discharge Planning: Continue current diet Pari Morales RDN, LDN, Contact: *[phone] * Melvin Mei MD - 02/12/2025 10:20 AM EDT Images from the original note were not included. Hospitalist Progress Note 02/12/[id number]: Please page me ([phone]) for patient care issues. [phone]: Please page [facility] night Hospitalist for any issues. Subjective: Admit Date: 02/10/2025 PCP: Gibson Roth (Inactive) Room#: B4-454/B4454 B Interval History: Patient is lying on the bed, complaining of pain in the lower extremities Denies any chest pain shortness of breath or palpitations No other significant overnight issues. Adult diet Regular; 4 carb choices (60 gm/meal); Low Fat/Low Chol/High Fiber/2 gm Na @[id number]@ 24HR INTAKE/OUTPUT: Intake/Output Summary (Last 24 hours) at 02/12/2025 1020 Last data filed at 02/11/2025 1747 Gross per 24 hour Intake -- Output 500 ml Net -500 ml Past Medical History: Medical History[1] LABS: CBC: Recent Labs 02/10/2522302/12/25 0519 WBC 5.1 3.7 RBC 5.26 5.16 HGB 14.8 15.1 HCT 45.8 44.7 MCV 87.1 86.6 RDW 18.6* 18.5* PLT 198 205 BMP: Recent Labs 02/10/2522302/12/25 05 NA 141 141 K 3.9 2.8* CL 102 106 CO2 22* 21* BUN 23 22 CREATININE 1.94* 1.73* GLUCOSE 89 82 CALCIUM 8.7* 8.4* ANIONGAP 17* 14* LIVER PROFILE: Recent Labs 02/10/25223 AST 39* [...] ejection fraction of 41% on echocardiogram 01/31/2025-s/p DISCHARGE COORDINATOR-D Follicular non-Hodgkin's lymphoma. Hypothyroidism. Bladder cancer Gastroesophageal [...] MD Division of Hospitalist Medicine Inpatient Medical Services/[facility] [place] PAGER: [phone] [1] Past Medical History: Diagnosis Date Acute [...] (HCC) Presence of cardiac resynchronization therapy defibrillator (DISCHARGE COORDINATOR-D) 01/17/2022 PUD (peptic ulcer disease) Pulmonary embolism [...] note were not included. Hospitalist Progress Note 02/11/20256992420-0128: Please page me ([phone]) for patient care issues. [phone]: Please page [facility] night Hospitalist for any issues. Subjective: Admit Date: 02/10/2025 PCP: Gibson Roth (Inactive) Room#: B4454/B4454 B Interval History: Patient is lying on the bed, complaining of pain in the lower extremities Denies any chest pain shortness of breath or palpitations No other significant overnight issues. Adult diet Regular; 4 carb choices (60 gm/meal); Low Fat/Low Chol/High Fiber/2 gm Na @[id number]@ 24HR INTAKE/OUTPUT: Intake/Output Summary (Last 24 hours) [...] ejection fraction of 41% on echocardiogram 01/31/2025-s/p DISCHARGE COORDINATOR-D Follicular non-Hodgkin's lymphoma. Hypothyroidism. Bladder cancer Gastroesophageal [...] MD Division of Hospitalist Medicine Inpatient Medical Services/[facility] [place] PAGER: [phone] [1] Past Medical History: Diagnosis Date Acute [...] (HCC) Presence of cardiac resynchronization therapy defibrillator (DISCHARGE COORDINATOR-D) 01/17/2022 PUD (peptic ulcer disease) Pulmonary embolism [...] from the original note were not included. [facility] - Infectious Diseases Attending Progress Note Patient [...] HFrEF (heart failure with reduced ejection fraction) ([facility]) 09/22/2020 Bladder cancer ([facility]) CHF (congestive heart failure) ([facility]) Chronic HFrEF (heart failure with reduced ejection fraction) ([facility]) 09/21/2020 Chronic kidney disease DM (diabetes mellitus) (HCC) DM (diabetes mellitus) (HCC) DVT (deep venous thrombosis) (HCC) ED (erectile dysfunction) Follicular non-Hodgkin's lymphoma (HCC) GERD (gastroesophageal reflux disease) GERD (gastroesophageal reflux disease) HTN (hypertension) HTN (hypertension) Hyperlipidemia Left bundle branch block 09/11/2020 Non-ischemic cardiomyopathy (CMS/HCC) (HCC) Presence of cardiac resynchronization therapy defibrillator (DISCHARGE COORDINATOR-D) 01/17/2022 PUD (peptic ulcer disease) Pulmonary embolism [...] 50 mL IVPB Mini-Bag Plus 2,000 mg [id number] Moises Adan MD Stopped at 02/11/25 0937 cholecalciferol (Vitamin D-3) tablet 50 mcg 50 mcg Oral Daily Moises Adan MD 50 mcg at 02/11/25 0935 cyanocobalamin (Vitamin B-12) tablet 1,000 mcg 1,000 mcg Oral Daily Moiess Adan MD 1,000 mcg at 02/11/25 0934 dextrose 5 % infusion 100 mL/hr IntraVENous PRN Moises Adan MD dextrose 50 % solution 12.5 g 12.5 g IntraVENous PRN Moises Adan MD enoxaparin (Lovenox) syringe 40 mg 40 mg SubCUTAneous Daily Moises Adan MD 40 mg at 02/11/25 0935 ferrous sulfate tablet 325 mg 325 mg Oral Daily with breakfast Moises Adan MD 325 mg at 02/11/25 0934 gabapentin (Neurontin) capsule 100 mg 100 mg Oral BID Moises Adan MD 100 mg at 02/11/25 0935 glipiZIDE (Glucotrol) tablet 2.5 mg 2.5 mg [...] Daily Moises Adan MD 25 mcg at 522 loperamide (Imodium) capsule 2 mg 2 mg Oral 4x daily PRN Melvin Mei MD 2 mg at 02/10/25 1541 Melatonin disintegrating tablet 5 mg 5 mg Oral Nightly PRN Moises Adan MD 5 mg at 02/10/252103 metoprolol succinate XL (Toprol-XL) 24 hr tablet 100 mg 100 mg Oral Daily Moises Adan MD 100 mg at 02/11/25 0935 ondansetron ODT (Zofran-ODT) disintegrating tablet 4 mg [...] Moises Adan MD 1 g at 02/11/25 05 tamsulosin (Flomax) 24 hr capsule 0.4 mg 0.4 mg Oral Daily Moises Adan MD 0.4 mg at 02/11/25934 torsemide (Demadex) tablet 40 mg 40 mg Oral Daily Moises Adan MD 40 mg at 02/11/25 0935 [4] Allergies Allergen Reactions Atorvastatin Other reaction(s): Myalgia Latanoprost Other reaction(s): Blurring of visual image, Excessive tear production, Red eye Lovastatin Other reaction(s): Myalgia Other [5] Family History Problem Relation Name Age of Onset High Blood Pressure Father High Blood Pressure Mother documented in this [facility]07-28-2025 NoteHospitalist Progress Note 02/14/2025 [phone]: Please page me ([phone]) for patient care issues. [phone]: Please page [facility] night Hospitalist for any issues. Subjective: Admit Date: 02/10/2025 PCP: Gibson Roth (Inactive) Room#: B4-454/B4-454 B Interval History: Patient is sitting on the bed, lower extremity pain improving. Denies any chest pain shortness of breath or palpitations. Adult diet Regular; No Added Salt (3-4 gm); 5 carb choices (75 gm/meal) @[id number]@ 24HR INTAKE/OUTPUT: Intake/Output Summary (Last 24 hours) at 02/14/2025 1039 Last data filed at 02/14/2025 0500 Gross per 24 hour Intake 480 ml Output 1100 ml Net -620 ml Past Medical History: Medical History[1] LABS: CBC: Recent Labs 02/12/25 0502/13/25 0531 02/14/25 0220 WBC 3.7 4.4 4.5 RBC 5.16 5.52 5.36 HGB 15.1 15.6 15.3 HCT 44.7 48.4 46.2 MCV 86.6 87.7 86.2 RDW 18.5* 19.2* 19.2* PLT 205 224 209 BMP: Recent Labs 02/12/25 0502/13/25 0531 02/14/25 022 NA 141 142 141 K 2.8* 3.8 [...] ejection fraction of 41% on echocardiogram 01/31/2025-s/p DISCHARGE COORDINATOR-D Follicular non-Hodgkin's lymphoma. Hypothyroidism. Bladder cancer Gastroesophageal [...] MD Division of Hospitalist Medicine Inpatient Medical Services/[facility] [facility] PAGER: [phone] [1] Past Medical History: Diagnosis Date Acute [...] branch block 09/11/2020 No (more content not included)...[facility] [id number] Nurse Note* Lavonne Grace RN - 02/14/2025 8:45 AM EDT Wound Care consulted for Pressure Injury Prevention. Pt's Simon score= 18 on 02/14 Pt's pressure points assessed. Pt turned independently in the bed for posterior assessment. Pt's Heels, Buttocks/coccyx, Back, Elbows, Occiput and ears all intact. [place] and blanchable tissues noted to coccyx. Instructed [...] any questions or concerns. Lavonne Grace RN [facility] [id number] NoteHospitalist Progress Note 02/13/2025 [phone]: Please page me ([phone]) for patient care issues. [phone]: Please page [facility] night Hospitalist for any issues. Subjective: Admit Date: 02/10/2025 PCP: Gibson Roth (Inactive) Room#: W1-054/P8-289 B Interval History: Patient is lying on the bed, complaining of pain in the lower extremities Denies any chest pain shortness of breath or palpitations No other significant overnight issues. Adult diet Regular; No Added Salt (3-4 gm); 5 carb choices (75 gm/meal) @[id number]@ 24HR INTAKE/OUTPUT: Intake/Output Summary (Last 24 hours) at 02/13/2025 1510 Last data filed at 02/12/2025 1958 Gross per 24 hour Intake 240 ml Output 600 ml Net -360 ml Past Medical History: Medical History[1] LABS: CBC: Recent Labs 02/12/25 0519 02/13/25 0531 WBC 3.7 4.4 RBC 5.16 5.52 HGB 15.1 15.6 HCT 44.7 48.4 MCV 86.6 87.7 RDW 18.5* 19.2* PLT 205 224 BMP: Recent Labs 02/12/25 0519 02/13/25 0531 NA 141 142 K 2.8* 3.8 [...] ejection fraction of 41% on echocardiogram 01/31/2025-s/p DISCHARGE COORDINATOR-D Follicular non-Hodgkin's lymphoma. Hypothyroidism. Bladder cancer Gastroesophageal [...] MD Division of Hospitalist Medicine Inpatient Medical Services/[facility] [facility] PAGER: [phone] [1] Past Medical History: Diagnosis Date Acute [...] cardiomyopathy (CMS/HCC) (HCC) Prese (more content not included)...[facility] [id number] Note Hospitalist Progress Note 02/12/2025 [phone]: Please page me ([phone]) for patient care issues. [phone]: Please page [facility] night Hospitalist for any issues. Subjective: Admit Date: 02/10/2025 PCP: Gibson Roth (Inactive) Room#: R5-382/M0-933 B Interval History: Patient is lying on the bed, complaining of pain in the lower extremities Denies any chest pain shortness of breath or palpitations No other significant overnight issues. Adult diet Regular; 4 carb choices (60 gm/meal); Low Fat/Low Chol/High Fiber/2 gm Na @[id number]@ 24HR INTAKE/OUTPUT: Intake/Output Summary (Last 24 hours) at 02/12/2025 1020 Last data filed at 02/11/2025 1747 Gross per 24 hour Intake -- Output 500 ml Net -500 ml Past Medical History: Medical History[1] LABS: CBC: Recent Labs 02/10/2522302/12/25518 WBC 5.1 3.7 RBC 5.26 5.16 HGB 14.8 15.1 HCT 45.8 44.7 MCV 87.1 86.6 RDW 18.6* 18.5* PLT 198 205 BMP: Recent Labs 02/10/2522302/12/25518 NA 141 141 K 3.9 2.8* CL 102 106 CO2 22* 21* BUN 23 22 CREATININE 1.94* 1.73* GLUCOSE 89 82 CALCIUM 8.7* 8.4* ANIONGAP 17* 14* LIVER PROFILE: Recent Labs 02/10/25223 AST 39* [...] ejection fraction of 41% on echocardiogram 01/31/2025-s/p DISCHARGE COORDINATOR-D Follicular non-Hodgkin's lymphoma. Hypothyroidism. Bladder cancer Gastroesophageal [...] MD Division of Hospitalist Medicine Inpatient Medical Services/[facility] [place] PAGER: [phone] [1] Past Medical History: Diagnosis Date Acute HFrEF (heart failure with reduced ejection fraction) ([facility]) 09/22/2020 Bladder cancer (HCC) CHF (congestive heart failure) (HCC) Chronic HFrEF (heart failure with reduced ejection fraction) ([facility]) 09/21/2020 Chronic kidney disease DM (diabetes mellitus) (HCC) DM (diabetes mellitus) ([facility]) DVT (deep venous thrombosis) (HCC) ED (erectile dysfunction) Follicular non-Hodgkin's lymphoma (HCC) GERD (gastroesophageal reflux disease) GERD (gastroesophageal reflux disease) HTN (hypertension) HTN (hypertension) Hyperlipidemia Left bundle branch block 09/11/2020 Non-ischemic cardiomyopathy (CMS/HCC) (HCC) Presence of cardiac resynchronizatio (more content not included)...[facility]07-25-2025 Nurse Note* Carmen Kraft RN - 02/11/2025 7:45 PM EDT ROLO wrap applied to both feet. [facility] [id number] NoteHospitalist Progress Note 02/11/2025 [phone]: Please page me ([phone]) for patient care issues. [phone]: Please page [facility] night Hospitalist for any issues. Subjective: Admit Date: 02/10/2025 PCP: Gibson Roth (Inactive) Room#: B4454/B4454 B Interval History: Patient is lying on the bed, complaining of pain in the lower extremities Denies any chest pain shortness of breath or palpitations No other significant overnight issues. Adult diet Regular; 4 carb choices (60 gm/meal); Low Fat/Low Chol/High Fiber/2 gm Na @[id number]@ 24HR INTAKE/OUTPUT: Intake/Output Summary (Last 24 hours) [...] ejection fraction of 41% on echocardiogram 01/31/2025-s/p DISCHARGE COORDINATOR-D Follicular non-Hodgkin's lymphoma. Hypothyroidism. Bladder cancer Gastroesophageal [...] MD Division of Hospitalist Medicine Inpatient Medical Services/[facility] [place] PAGER: [phone] [1] Past Medical History: Diagnosis Date Acute [...] (HCC) Presence of cardiac resynchronization therapy defibrillator (DISCHARGE COORDINATOR-D) 01/17/2022 PUD (peptic ulcer disease) Pulmonary embolism (HCC) Pulmonary fibrosis (HCC) Rosacea Stage 3b chronic kidney di (more content not included)...[facility] 02-11-2025 NoteCare Management Progress Note Short Medical why still here: Patient remains on 4S today for BLE cellulitis, IV ATBX through the weekend. CHF, diuresis continued. ID consulted and seen. Wound following. Monitoring labs/lytes. No indications for therapy at this time. Planned Discharge Disposition: From home, possible need for therapy to al. [facility] to follow. Barriers/Today we still Wait: IV ATBX, ID final recs. Clinical stability. Length of Stay (Days): 1 GMLOS: No GMLOS [facility]* Care Coordination - Jewels Ortiz RN - 02/11/2025 2:51 PM EDT Care Management Progress Note Short Medical why still here: Patient remains on 4S today for BLE cellulitis, IV ATBX through the weekend. CHF, diuresis continued. ID consulted and seen. Wound following. Monitoring labs/lytes. No indications for therapy at this time. Planned Discharge Disposition: From home, possible need for therapy to al. [facility] to follow. Barriers/Today we still Wait: IV ATBX, ID final recs. Clinical stability. Length of Stay (Days): 1 GMLOS: No GMLOS Documented [id number] Discharge [facility]* Discharge Instr - MICHELE* [...] Information Primary Emergency Contact: AzamZuleyka Mobile Relation: Adult Basic Education Instructor Secondary Emergency Contact: Shaylee Nascimento Relation: Child [...] (HCC) Presence of cardiac resynchronization therapy defibrillator (DISCHARGE COORDINATOR-D) Acute systolic congestive heart failure (HCC) Cellulitis [...] (182 lb) Mental Status: {MICHELE Patient Mental Status:84393} IV Access: {MICHELE IV Access:39270} Nursing Mobility/ADLs: Walking {SUDHAKAR ADL:59313::Independent} Transfer {SUDHAKAR ADL:28881::Independent} Bathing {SUDHAKAR ADL:81050::Independent} Dressing {SUDHAKAR ADL:16060::Independent} Toileting {SUDHAKAR ADL:00736::Independent} Feeding {SUDHAKAR ADL:84611::Independent} Tanker Truck Driver {SUDHAKAR ADL:60085::Independent} Med Delivery {yes/no:35604} Wound Care Documentation and Therapy: Elimination: Continence: Bowel: {yes/no:22617} Bladder: {yes/no:60679} Urinary Catheter: {MICHELE Urinary Catheter:63710} Colostomy/Ileostomy/Ileal Conduit: {YES / NO:} Date of Last BM: Intake/Output Summary (Last 24 hours) at 02/11/2025 1356 Last data filed at 02/11/2025 0840 Gross per 24 hour Intake 240 ml Output 300 ml Net -60 ml I/O last 3 completed shifts: In: 50 (0.6 mL/kg) [IV Piggyback:50] Out: - (0 mL/kg) Weight: 82.6 kg Safety Concerns: {MICHELE Safety Concerns:69987} Impairments/Disabilities: {MICHELE Impairments/Disabilities:78387} Nutrition Therapy: Current Nutrition Therapy: {MICHELE Diet List:06959} Routes of Feeding: {routes of feedin} Liquids: {liquid consistency:08721} Daily Fluid Restriction: {daily fluid restriction:21591} Last Modified Barium Swallow with Video (Video Swallowing Test): {done not done:69711} Treatments at the Time of Hospital Discharge: Respiratory Treatments: Oxygen Therapy: {Therapy; copd oxygen:22000} Ventilator: {MICHELE Ventilator:78881} Rehab Therapies: {GEN THERAPY DISCIPLINE SCAL:0515839} Weight Bearing Status/Restrictions: {POD WEIGHT BEARIN} Other Medical Equipment (for information only, NOT a DME order): {Assistive Devices DME:07179} Other Treatments: Patient's personal belongings (please select all that are sent with patient): {MICHELE Patient Belongings:44707} RN SIGNATURE: {E-signature:02905} CASE MANAGEMENT/SOCIAL WORK SECTION Inpatient Status Date: Discharging to Facility/ Agency Name: [facility] Address: [address] [place] [address] Dialysis Facility (if applicable) Name: Address: Dialysis Schedule: Phone: Fax: Geodetic Technician/Extrusion Die Repair Manager signature: {E-signature:34203} PHYSICIAN SECTION Name: Megan Nascimento Prognosis: {Rehab Prognosis:75210} Condition at Discharge: {Patient Condition:26210} Rehab Potential (if transferring to Rehab): {Rehab Prognosis:42647} Recommended Labs or Other Treatments After Discharge: The individual is being admitted to a nursing facility directly from an [facility] or a unit of a [facility] that is not operated by or licensed by [facility] under section 5119.14 or 5160-3-15.1 5 The individual requires the level of services provided by a nursing facility for the condition for which he or she was treated in the hospital and, Physician Certification: I certify the above information and transfer of Megan Nascimento is necessary for the continuing treatment of the diagnosis listed and that he requires {MICHELE Level of Care:49049} for {greater less than:77993} 30 days. Update Admission H&P: {MICHELE Changes in H&P:23514} PHYSICIAN SIGNATURE: {E-signature:59370} documented in this [facility]07-25-2025 NotePatient states he quit smoking in 1999, no history of vaping or smokeless tobacco. Smoking cessation counseling no indicated.[facility] 02-11-2025 [facility] - Infectious Diseases Attending [...] HFrEF (heart failure with reduced ejection fraction) ([facility]) 09/22/2020 Bladder cancer (HCC) CHF (congestive heart failure) (HCC) Chronic HFrEF (heart failure with reduced ejection fraction) ([facility]) 09/21/2020 Chronic kidney disease DM (diabetes mellitus) (HCC) DM (diabetes mellitus) (HCC) DVT (deep venous thrombosis) (HCC) ED (erectile dysfunction) Follicular non-Hodgkin's lymphoma (HCC) GERD (gastroesophageal reflux disease) GERD (gastroesophageal reflux disease) HTN (hypertension) HTN (hypertension) Hyperlipidemia Left bundle branch block 09/11/2020 Non-ischemic cardiomyopathy (CMS/HCC) ([facility]) Presence of cardiac resynchronization therapy defibrillator (DISCHARGE COORDINATOR-D) 01/17/2022 PUD (peptic ulcer disease) Pulmonary embolism (HCC) Pulmonary fibrosis (HCC) Rosacea Stage 3b chronic kidney disease (HCC) 09/21/2020 Tachycardia [2] Past Surgical History: Procedure Laterality Date BONE MARROW BIOPSY CARDIAC PACEMAKER PLACEMENT COLONOSCOPY COLONOSCOPY COSMETIC SURGERY face lift, rhinoplasty EYE SURGERY cataract removal FACIAL COSMETIC SURGERY LYMPH NODE BIOPSY SEPTOPLASTY SKIN BIOPSY VENTRICULA (more content not included)...[facility]07-25-2025 Patient's home Note* Home Care - Maria Antonia Mcmullen RN - 02/11/2025 8:39 AM EDT Patient is currently active with [facility]. The patients current certification period will on 04/04/2025. The patient is currently receiving SN, PT services through the agency. Safety Physician to continue to follow. [facility] [id number] Consult note* Mannie Samuel MD - 02/10/2025 2:43 PM EDT Associated Order(s): IP CONSULT TO INFECTIOUS DISEASES Images from the original note were not included. [facility] - Infectious Diseases Attending Consult [...] Physical Exam: Physical Exam Labs: Recent Labs 02/10/25 0224 NA 141 [...] HFrEF (heart failure with reduced ejection fraction) ([facility]) 09/22/2020 Bladder cancer (HCC) CHF (congestive heart failure) (HCC) Chronic HFrEF (heart failure with reduced ejection fraction) ([facility]) 09/21/2020 Chronic kidney disease DM (diabetes mellitus) (HCC) DM (diabetes mellitus) (HCC) DVT (deep venous thrombosis) (HCC) ED (erectile dysfunction) Follicular non-Hodgkin's lymphoma (HCC) GERD (gastroesophageal reflux disease) GERD (gastroesophageal reflux disease) HTN (hypertension) HTN (hypertension) Hyperlipidemia Left bundle branch block 09/11/2020 Non-ischemic cardiomyopathy (CMS/HCC) (HCC) Presence of cardiac resynchronization therapy defibrillator (DISCHARGE COORDINATOR-D) 01/17/2022 PUD (peptic ulcer disease) Pulmonary embolism [...] 50 mL IVPB Mini-Bag Plus 2,000 mg [id number] Moises Adan MD cholecalciferol (Vitamin D-3) tablet [...] Blood Pressure Father High Blood Pressure Mother [facility] [id number] Consult note* Mannie Samuel MD - 02/10/2025 2:43 PM EDT Associated Order(s): IP CONSULT TO INFECTIOUS DISEASES Images from the original note were not included. [facility] - Infectious Diseases Attending Consult [...] HFrEF (heart failure with reduced ejection fraction) ([facility]) 09/22/2020 Bladder cancer (HCC) CHF (congestive heart failure) (HCC) Chronic HFrEF (heart failure with reduced ejection fraction) ([facility]) 09/21/2020 Chronic kidney disease DM (diabetes mellitus) (HCC) DM (diabetes mellitus) (HCC) DVT (deep venous thrombosis) (HCC) ED (erectile dysfunction) Follicular non-Hodgkin's lymphoma (HCC) GERD (gastroesophageal reflux disease) GERD (gastroesophageal reflux disease) HTN (hypertension) HTN (hypertension) Hyperlipidemia Left bundle branch block 09/11/2020 Non-ischemic cardiomyopathy (CMS/HCC) (HCC) Presence of cardiac resynchronization therapy defibrillator (DISCHARGE COORDINATOR-D) 01/17/2022 PUD (peptic ulcer disease) Pulmonary embolism [...] 50 mL IVPB Mini-Bag Plus 2,000 mg [id number] Moises Adan MD cholecalciferol (Vitamin D-3) tablet [...] High Blood Pressure Mother documented in this [facility]07-24-2025 History and physical note* Moises Adan [...] Primary Emergency Contact: Zuleyka Nascimento Mobile Relation: Adult Basic Education Instructor Secondary Emergency Contact: Shaylee Nascimento Relation: Child ADVANCED CARE PLANNING Megan Nascimento : 1940 Primary Care Physician: Gibson Roth (Inactive) The patient and/or family/surrogate voluntarily agreed to participate in ACP services. Patient s cognitive capacity: Alert, Orientedx3 Code Status: [x_] [FULL CODE - Continue all advanced life support: CPR,intubation,invasive procedures] [_] [DNR-CCA - DO NOT do CPR, intubation] [_] [DNR-DOOR TO DOOR SELLING DISTRIBUTOR - Comfort care only] [_] DNR form [was/was not] signed Moises Adan MD Division of Hospitalist Medicine [employer] [1] Past Medical History: Diagnosis Date Acute HFrEF (heart failure with reduced ejection fraction) ([facility]) 09/22/2020 Bladder cancer (HCC) CHF (congestive heart failure) (HCC) Chronic HFrEF (heart failure with reduced ejection fraction) ([facility]) 09/21/2020 Chronic kidney disease DM (diabetes mellitus) (HCC) DM (diabetes mellitus) (HCC) DVT (deep venous thrombosis) (HCC) ED (erectile dysfunction) Follicular non-Hodgkin's lymphoma (HCC) GERD (gastroesophageal reflux disease) GERD (gastroesophageal reflux disease) HTN (hypertension) HTN (hypertension) Hyperlipidemia Left bundle branch block 09/11/2020 Non-ischemic cardiomyopathy (CMS/HCC) (HCC) Presence of cardiac resynchronization therapy defibrillator (DISCHARGE COORDINATOR-D) 01/17/2022 PUD (peptic ulcer disease) Pulmonary embolism [...] Red eye Lovastatin Other reaction(s): Myalgia Other [facility] [id number] NoteAttending History and Physical Admit Date: 02/10/2025 [...] edema bilateral lower extremit (more content not included)...[facility]07-24-2025 History and physical note* Moises Adan MD [...] specialist Resume medications from home Will do Orlo bandage wrap to the lower extremity which [...] Primary Emergency Contact: Zuleyka Nascimento Mobile Relation: Adult Basic Education Instructor Secondary Emergency Contact: Shaylee Nascimento Relation: Child ADVANCED CARE PLANNING Megan Nascimento : 1940 Primary Care Physician: Gibson Roth (Inactive) The patient and/or family/surrogate voluntarily agreed to participate in ACP services. Patient s cognitive capacity: Alert, Orientedx3 Code Status: [x_] [FULL CODE - Continue all advanced life support: CPR,intubation,invasive procedures] [_] [DNR-CCA - DO NOT do CPR, intubation] [_] [DNR-DOOR TO DOOR SELLING DISTRIBUTOR - Comfort care only] [_] DNR form [was/was not] signed Moises Adan MD Division of Hospitalist Medicine [facility] [1] Past Medical History: Diagnosis Date Acute HFrEF (heart failure with reduced ejection fraction) ([facility]) 09/22/2020 Bladder cancer (HCC) CHF (congestive heart failure) (HCC) Chronic HFrEF (heart failure with reduced ejection fraction) ([facility]) 09/21/2020 Chronic kidney disease DM (diabetes mellitus) (HCC) DM (diabetes mellitus) (HCC) DVT (deep venous thrombosis) (HCC) ED (erectile dysfunction) Follicular non-Hodgkin's lymphoma (HCC) GERD (gastroesophageal reflux disease) GERD (gastroesophageal reflux disease) HTN (hypertension) HTN (hypertension) Hyperlipidemia Left bundle branch block 09/11/2020 Non-ischemic cardiomyopathy (CMS/HCC) ([facility]) Presence of cardiac resynchronization therapy defibrillator (DISCHARGE COORDINATOR-D) 01/17/2022 PUD (peptic ulcer disease) Pulmonary embolism (HCC) Pulmonary fibrosis (HCC) Rosacea Stage 3b chronic kidney disease ([facility]) 09/21/2020 Tachycardia [2] Past Surgical History: Procedure [...] Other reaction(s): Myalgia Other documented in this [facility]07-24-2025 Emergency department Note* Latricia Landa DO - 02/10/2025 1:31 AM EDT EMERGENCY DEPARTMENT ENCOUNTER Pt Name: eMgan Nascimento Birthdate 1940 Date of evaluation: 02/10/2025 [...] NS (premix) (1,500 mg IntraVENous New Bag 02/10/25441) cefepime (Maxipime) 2,000 mg in sodium chloride [...] (HCC) Presence of cardiac resynchronization therapy defibrillator (DISCHARGE COORDINATOR-D) 01/17/2022 PUD (peptic ulcer disease) Pulmonary embolism [...] Landa DO 02/10/25 0551 documented in this [facility]07-24-2025 Physician Emergency department Note* Latricia Landa [...] (premix) (1,500 mg IntraVENous New Bag 02/10/25 525) cefepime (Maxipime) 2,000 mg in sodium chloride 0.9 % 50 mL IVPB Mini-Bag Plus (0 mg IntraVENous Stopped 02/10/25 831) FINAL IMPRESSION 1. Cellulitis of lower extremity, [...] (HCC) Presence of cardiac resynchronization therapy defibrillator (DISCHARGE COORDINATOR-D) 01/17/2022 PUD (peptic ulcer disease) Pulmonary embolism [...] Abused: No Latricia Landa DO 02/10/25 0551 T [facility] [id number] Telephone encounter Note* Telephone Encounter - Bipin Givens RN - 02/07/2025 1:50 PM EDT TC to Pt No answer LVM [facility] [id number] Miscellaneous Notes* Telephone Encounter - Bipin Givens [...] post discharge phone call. documented in this [facility]SMetro[facility] CenterGqwckc10-53-5654 Telephone encounter Note* Telephone Encounter - Marisol Kim - 02/07/2025 1:32 PM EDT Patient left message saying he had a question about meds [facility] [id number] Telephone encounter Note* Telephone Encounter - Bipin Givens RN - 02/07/2025 8:35 AM EDT Per Marcela Rosado Pt can continue the Dupixent No answer LVM explaining this as VM states full name [facility] [id number] Telephone encounter Note* Telephone Encounter - Bipin [...] again. RP 02/15/25 1430 Pt verbalizes understanding. [facility] [id number] Miscellaneous Notes* Telephone Encounter - Bipin Givens [...] post discharge phone call. documented in this encounterSMetroHealth Parma Medical CenterUokjvp82-38-1851 Telephone encounter Note* Telephone Encounter - Nidia Garcia - 02/04/2025 2:14 PM EDT Patient called and was returning your phone call [facility] [id number] Telephone encounter Note* Telephone Encounter - Bipin Givens RN - 02/04/2025 2:02 PM EDT TC to Pt no answer LVM [place] [id number] NoteChart reviewed. Attempted to contact patient for transitional outreach. No answer. Left VM requesting a return call back. Future outreach scheduled.[facility]07-18-2025 Telephone encounter Note* Telephone Encounter - CHLOE Manuel CNP - 02/04/2025 8:35 AM EDT Discharged with heart failure. Needs 72 hour post discharge phone call. [facility] Seer Work Phone: [phone] 872-351007-16-2025 NoteFollowing patient for transitions. Received notification of patient's discharge home on 02/01 with MIRI via discharge report in [employer]. Future transitional outreach scheduled.[place] [id number] Nurse Note* Randy Cornelius RN - 02/01/2025 6:15 PM EDT AVS instructions given. Meds to bed delivered. IV's removed. residential monitor removed, cleaned and placed at corresponding location nurses station. Patient has no questions or concerns at this time. Returning home via family. [place] [id number] Nurse Note* Randy Cornelius RN - 02/01/2025 6:15 PM EDT AVS instructions given. Meds to bed delivered. IV's removed. residential monitor removed, cleaned and placed at corresponding [...] care given). Prevention Measures in place, including: Apex sheet with pillows (in place), Pt declined Bilateralfoam heel protectors, off loading heels on pillows, Sacral foam and, Zinc/Moisture Barrier ointment. Moisture absorbant pad (in place), Bed Alarm On. Skin Care precaution order set in place d/t Simon score 18 on 01/28/2025. Dietitian consult in place. PT consult NA Simon > 3. D/W sandwich peddler skin assessment, preventions, and interventions implemented. Will continue to follow pt. Please Voicera for any questions or concerns. Saundra Vinson RN, BSN documented in this [facility]07-15-2025 Miscellaneous Notes* Care Coordination - Unknown Case Management - 02/01/2025 4:05 PM EDT Patient Choice Patient Name: MEGAN NASCIMENTO Date of : 1940 All Providers Sent Referral Name: [facility] Phone: [phone] Address: [address] [place] [address] * Home Care - Rachid Mc RN [...] HHC and agreeable to SN services with [facility] - Home Care. Care Types: [...] is noted as yes - consider a DIRECTOR OF GLOBAL SALES evaluation once the patient returns home. START PATIENT REGISTRATION INFORMATION Order Information Order Signing Physician: Dee Jones MD Service Ordered RN ?: Yes Service Ordered PT ?: No Service Ordered OT ?: No Service Ordered ST ?: No Service Ordered DIRECTOR OF GLOBAL SALES?:No Service Ordered BUSINESS MACHINE MECHANIC?: No Following Physician: Dr. Rigoberto Durand Following Physician Overseeing Physician: Dr. Durand (Required for Residents only) Agreeable to Follow? Yes Date/Time of Call 02/01/25 10:23 AM, Spoke with: pending response from PCP Care Coordination Same Day SOC?: No Primary Care Physician: Dr. Rigoberto Durand Primary Care Physician Primary Care Physician Address: [address] [place] [address] [address], [place] [address] Visit Instructions: N/A Service Discharge Location Type: Home with Home Care Service Facility Name: N/A Service Floor Facility: N/A Service Room No: N/A Demographics Patient Last Name: Azam Patient First Name: Megan Language/Communication Barrier: none Service Address: [address] [place] [address] [address] Service City: [place] Service ST: [place] Service ZIP: [address] Service (home) Other phone numbers: Telephone Information: Emergency Contact: Extended Emergency Contact Information Primary Emergency Contact: AzamZuleyka Mobile Relation: Adult Basic Education Instructor Secondary Emergency Contact: Negrito Nascimentosa Relation: Child Admission Information Admit Date: 01/28/2025 Patient status at discharge: Inpatient Admitting Diagnosis: AICD (automatic cardioverter/defibrillator) present [Z95.810] Bilateral leg edema [R60.0] Acute systolic congestive heart failure (HCC) [I50.21] Chronic kidney disease, unspecified CKD stage [N18.9] Caregiver Information Caregiver First Name: na Caregiver Last Name: ron Caregiver Relationship to Patient na Caregiver Phone Number: na Caregiver Notes: N/A [employer]: [employer] TECH - NEXT DAY REQUEST Requests Next [...] PMH significant for chronic HFrEF, NICM, s/p DISCHARGE COORDINATOR-D, CKD IV, HTN, DVT/PE, diabetes who presented to [facility] on 01/28/25 secondary to concern for ADHF. NT Pro BNP 23,300, troponin negative, CXR with pulmonary vascular congestion, bilateral pleural effusions, EKG paced. Cardiology consulted and Pt found to be massively hypervolemic, started on IV diuresis. Discharge Date: pending Referral Source-PACC: (Hospital/Unit): [facility] / [id number]/[id number] B End PACC [...] Permission given to speak with patient sales promotion representative/caregiver as indicated: Yes Confirmation of Payer [...] Alone Support Systems: Children, Family members, Friends/neighbors, international trade manager/social studies teacher, Home carestaff Activities of Daily Living [...] Walker DME Provider: His daughter is his career services officer Patient's Goal/Discharge Plan Patient expects to be [...] fall injury Outcome: Progressing documented in this [facility]07-15-2025 Note* Care Coordination - Unknown Case Management - 02/01/2025 4:05 PM EDT Patient Choice Patient Name: MEGAN NASCIMENTO Date of : 1940 All Providers Sent Referral Name: [facility] Phone: [phone] Address: [address] [place] [address] [facility] [id number] Note* Care Coordination - Unknown Case Management - 02/01/2025 4:05 PM EDT Patient Choice Patient Name: MEGAN NASCIMENTO Date of : 1940 All Providers Sent Referral Name: [facility] Phone: [phone] Address: [address] [place] [address] [facility] [id number] Note* Home Care - Rachid Mc RN - 02/01/2025 2:05 PM EDT Confirmed with Valerie at PCP's office that patient is active with Dr. Durand for PCP and he will follow for home care orders. [facility] [id number] Note* Home Care - Rachid Mc RN - 02/01/2025 2:05 PM EDT Confirmed with Valerie at PCP's office that patient is active with Dr. Durand for PCP and he will follow for home care orders. [facility] [id number] NoteDischarge Summary Megan Nascimento : 1940 ADMIT DATE: 01/28/2025 DISCHARGE DATE: 02/01/2025 PRIMARY CARE PHYSICIAN: Gibson Roth (Inactive) VISIT STATUS: Admission CODE STATUS: Full Code DISCHARGE DIAGNOSES: Principal Problem: Acute systolic congestive heart failure (HCC) Active Problems: Presence of cardiac resynchronization therapy defibrillator (DISCHARGE COORDINATOR-D) HTN (hypertension) Follicular non-Hodgkin's lymphoma (HCC) HOSPITAL [...] his diagnosis/management during his stay here at [facility]: Acute, acute on chronic, unstable/uncontrolled chronic problems/diagnoses: Acute on chronic HFrEF EF now 12% 2/2 NICM. S/p DISCHARGE COORDINATOR-D. Stage C - Presented decompensated with volume [...] acute on chronic HFrEF 2/2 NICM, Per [facility], echo done 01-31-25 shows left ventricle [...] Your Medications These medications were sent to [facility] [address] [place] [address] Hours: Friday to Friday 10 am to 6 pm tamsulosin 0.4 MG 24 hr capsule Torsemide 40 MG tablet DIET: Adult diet Regular; Low Sodium (2 gm); 5 carb choices (75 gm/meal) ACTIVITY: No restriction. (more content not included)...[facility] [id number] Hospital course Narrative* Dee Jones MD - 02/01/2025 11:58 AM EDT Discharge Summary Megan Nascimento : 1940 ADMIT DATE: 01/28/2025 DISCHARGE DATE: 02/01/2025 PRIMARY CARE PHYSICIAN: Gibson Roth (Inactive) VISIT STATUS: Admission CODE STATUS: Full Code DISCHARGE DIAGNOSES: Principal Problem: Acute systolic congestive heart failure (HCC) Active Problems: Presence of cardiac resynchronization therapy defibrillator (DISCHARGE COORDINATOR-D) HTN (hypertension) Follicular non-Hodgkin's lymphoma (HCC) HOSPITAL [...] his diagnosis/management during his stay here at [facility]: Acute, acute on chronic, unstable/uncontrolled chronic problems/diagnoses: Acute on chronic HFrEF EF now 12% 2/2 NICM. S/p DISCHARGE COORDINATOR-D. Stage C - Presented decompensated with volume [...] tadalafil 20 MG tablet Commonly known as: [facility] Where to Get Your Medications These medications were sent to [facility] [address] [place] [address] Hours: Friday to Friday 10 am to 6 pm tamsulosin 0.4 MG 24 hr capsule Torsemide 40 MG tablet DIET: Adult diet Regular; Low Sodium (2 gm); 5 carb choices (75 gm/meal) ACTIVITY: No restriction. COMPLEXITY OF FOLLOW UP: [] Moderate Complexity: follow up within 7-14 calendar days (82090) [] Severe Complexity: follow up within 7 calendar days (77334) FOLLOW UP TESTING, PENDING RESULTS OR REFERRALS AT TRANSITIONAL CARE VISIT: [] Yes [] No PENDING STUDIES: DISPOSITION: Home with Home Health Care FACILITY/HOME CARE AGENCY NAME: Follow up with Petra Renteria, OFFICE RN - [address], [address] [facility] [phone] Go on 02/15/2025 appointment time 2:30pm INSTRUCTIONS [...] MD 02/01/2025, 11:58 AM documented in this [facility]07-15-2025 Note* Care Coordination - Nelly Pisano, RN - 02/01/2025 10:59 AM EDT Care Management Progress Note Short Medical why still here: Echo complete, EF 12%. Cardiology following, going to treat medically. Meds being changed Planned Discharge Disposition: Home or Self Care Barriers/Today we still Wait: Administering IV medications, Clinical stability Length of Stay (Days): 4 GMLOS: 3.9 [id number]* Care Coordination - Nelly Pisano RN - 02/01/2025 10:59 AM EDT Care Management Progress Note Short Medical why still here: Echo complete, EF 12%. Cardiology following, going to treat medically. Meds being changed Planned Discharge Disposition: Home or Self Care Barriers/Today we still Wait: Administering IV medications, Clinical stability Length of Stay (Days): 4 GMLOS: 3.9 [facility] [id number] NoteCare Management Progress Note Short Medical why still here: Echo complete, EF 12%. Cardiology following, going to treat medically. Meds being changed Planned Discharge Disposition: Home or Self Care Barriers/Today we still Wait: Administering IV medications, Clinical stability Length of Stay (Days): 4 GMLOS: 3.9 [facility]07-15-2025 Note* Home Care - Rachid Mc RN - 02/01/2025 10:21 AM EDT Start PACC Note Home Health Referral Educated patient on Home Care and services available. Patient offered choice of available C and agreeable to SN services with [facility]. Care Types: [...] is noted as yes - consider a DIRECTOR OF GLOBAL SALES evaluation once the patient returns home. START PATIENT REGISTRATION INFORMATION Order Information Order Signing Physician: Dee Jones MD Service Ordered RN ?: Yes Service Ordered PT ?: No Service Ordered OT ?: No Service Ordered ST ?: No Service Ordered DIRECTOR OF GLOBAL SALES?:No Service Ordered BUSINESS MACHINE MECHANIC?: No Following Physician: Dr. Rigoberto Durand Following Physician Overseeing Physician: Dr. Durand (Required for Residents only) Agreeable to Follow? Yes Date/Time of Call 02/01/25 10:23 AM, Spoke with: pending response from PCP Care Coordination Same Day SOC?: No Primary Care Physician: Dr. Rigoberto Durand Primary Care Physician Primary Care Physician Address: [address] [place] [address] [address] [address] Visit Instructions: N/A Service Discharge Location Type: Home with Home Care Service Facility Name: N/A Service Floor Facility: N/A Service Room No: N/A Demographics Patient Last Name: Azam Patient First Name: Megan Language/Communication Barrier: none Service Address: [address] [place] [address] [address] Service City: [facility] ST: [place] Service ZIP: [address] Service (home) Other phone numbers: Telephone Information: Emergency Contact: Extended Emergency Contact Information Primary Emergency Contact: AzamZuleyka Mobile Relation: Adult Basic Education Instructor Secondary Emergency Contact: AzamShaylee Relation: Child Admission Information Admit Date: 01/28/2025 Patient status at discharge: Inpatient Admitting Diagnosis: AICD (automatic cardioverter/defibrillator) present [Z95.810] Bilateral leg edema [R60.0] Acute systolic congestive heart failure (HCC) [I50.21] Chronic kidney disease, unspecified CKD stage [N18.9] Caregiver Information Caregiver First Name: ron Caregiver Last Name: ron Caregiver Relationship to Patient na Caregiver Phone Number: na Caregiver Notes: N/A [employer] [facility]: [employer] TECH - NEXT DAY REQUEST Requests Next [...] PMH significant for chronic HFrEF, NICM, s/p DISCHARGE COORDINATOR-D, CKD IV, HTN, DVT/PE, diabetes who presented to [facility] on 01/28/25 secondary to concern for ADHF. NT Pro BNP 23,300, troponin negative, CXR with pulmonary vascular congestion, bilateral pleural effusions, EKG paced. Cardiology consulted and Pt found to be massively hypervolemic, started on IV diuresis. Discharge Date: pending Referral Source-PACC: (Hospital/Unit): [facility] / [id number]/[id number] B End PACC Note [id number] [facility]* Home Care - Rachid Mc RN - 02/01/2025 10:21 AM EDT Start PACC Note Home Health Referral Educated patient on Home Care and services available. Patient offered choice of available HHC and agreeable to SN services with [facility]. Care Types: [...] is noted as yes - consider a DIRECTOR OF GLOBAL SALES evaluation once the patient returns home. START PATIENT REGISTRATION INFORMATION Order Information Order Signing Physician: Dee Jones MD Service Ordered RN ?: Yes Service Ordered PT ?: No Service Ordered OT ?: No Service Ordered ST ?: No Service Ordered DIRECTOR OF GLOBAL SALES?:No Service Ordered BUSINESS MACHINE MECHANIC?: No Following Physician: Dr. Rigoberto Durand Following Physician Overseeing Physician: Dr. Durand (Required for Residents only) Agreeable to Follow? Yes Date/Time of Call 02/01/25 10:23 AM, Spoke with: pending response from PCP Care Coordination Same Day SOC?: No Primary Care Physician: Dr. Rigoberto Durand Primary Care Physician Primary Care Physician Address: [address] [place] [address] [address], [place] [address] Visit Instructions: N/A Service Discharge Location Type: Home with Home Care Service Facility Name: N/A Service Floor Facility: N/A Service Room No: N/A Demographics Patient Last Name: Azam Patient First Name: Megan Language/Communication Barrier: none Service Address: [address] [place] [address] [address] Service City: [place] Service ST: [place] Service ZIP: [address] Service (home) Other phone numbers: Telephone Information: Emergency Contact: Extended Emergency Contact Information Primary Emergency Contact: Zuleyka Nascimento Mobile Relation: Adult Basic Education Instructor Secondary Emergency Contact: Shaylee Nascimento Relation: Child Admission Information Admit Date: 01/28/2025 Patient status at discharge: Inpatient Admitting Diagnosis: AICD (automatic cardioverter/defibrillator) present [Z95.810] Bilateral leg edema [R60.0] Acute systolic congestive heart failure (HCC) [I50.21] Chronic kidney disease, unspecified CKD stage [N18.9] Caregiver Information Caregiver First Name: ron Caregiver Last Name: ron Caregiver Relationship to Patient na Caregiver Phone Number: na Caregiver Notes: N/A [employer] [facility]: [place] TECH - NEXT DAY [...] PMH significant for chronic HFrEF, NICM, s/p DISCHARGE COORDINATOR-D, CKD IV, HTN, DVT/PE, diabetes who presented to [facility] on 01/28/25 secondary to concern for ADHF. NT Pro BNP 23,300, troponin negative, CXR with pulmonary vascular congestion, bilateral pleural effusions, EKG paced. Cardiology consulted and Pt found to be massively hypervolemic, started on IV diuresis. Discharge Date: pending Referral Source-PACC: (Hospital/Unit): [facility] / W5-541/[id number] B End PACC Note [facility] [id number] NoteStart PACC Note Home Health Referral Educated patient on Home Care and services available. Patient offered choice of available HHC and agreeable to SN services with [facility]. Care Types: [...] is noted as yes - consider a DIRECTOR OF GLOBAL SALES evaluation once the patient returns home. START PATIENT REGISTRATION INFORMATION Order Information Order Signing Physician: Dee Jones MD Service Ordered RN ?: Yes Service Ordered PT ?: No Service Ordered OT ?: No Service Ordered ST ?: No Service Ordered DIRECTOR OF GLOBAL SALES?:No Service Ordered BUSINESS MACHINE MECHANIC?: No Following Physician: Dr. Rigoberto Durand Following Physician Overseeing Physician: Dr. Durand (Required for Residents only) Agreeable to Follow? Yes Date/Time of Call 02/01/25 10:23 AM, Spoke with: pending response from PCP Care Coordination Same Day SOC?: No Primary Care Physician: Dr. Rigoberto Durand Primary Care Physician Primary Care Physician Address: [address] [place] [address] [address], [place] [address] Visit Instructions: N/A Service Discharge Location Type: Home with Home Care Service Facility Name: N/A Service Floor Facility: N/A Service Room No: N/A Demographics Patient Last Name: Azam Patient First Name: Megan Language/Communication Barrier: none Service Address: [address] [place] [address] [address] Service City: [facility] ST: [place] Service ZIP: [address] Service (home) Other phone numbers: Telephone Information: Emergency Contact: Extended Emergency Contact Information Primary Emergency Contact: Zuleyka Nascimento Mobile Relation: Adult Basic Education Instructor Secondary Emergency Contact: Negrito Nascimentosa Relation: Child Admission Information Admit Date: 01/28/2025 Patient status at discharge: Inpatient Admitting Diagnosis: AICD (automatic cardioverter/defibrillator) present [Z95.810] Bilateral leg edema [R60.0] Acute systolic congestive heart failure (HCC) [I50.21] Chronic kidney disease, unspecified CKD stage [N18.9] Caregiver Information Caregiver First Name: ron Caregiver Last Name: ron Caregiver Relationship to Patient na Caregiver Phone Number: na Caregiver Notes: N/A [employer]: [employer] TECH - NEXT DAY REQUEST Requests Next [...] PMH significant for chronic HFrEF, NICM, s/p DISCHARGE COORDINATOR-D, CKD IV, HTN, DVT/PE, diabetes who presented to [facility] on 01/28/25 secondary to concern for ADHF. NT Pro BNP 23,300, troponin negative, CXR with pulmonary vascular congestion, bilateral pleural effusions, EKG paced. Cardiology consulted and Pt found to be massively hypervolemic, started on IV diuresis. Discharge Date: pending Referral Source-PACC: (Hospital/Unit): [facility] / W5-541/[id number] B End PACC [facility]07-15-2025 Hospital Discharge instructions* Discharge Instr - Other Orders* Rachid Mc RN - 02/01/2025 10:18 AM EDT Discharging to Facility/ Agency Name: [facility] Address: [address] [place] [address] * Attachments The following attachments cannot be sent through Care Everywhere. * [facility]ON[facility] documented in this [facility]07-15-2025 [facility] Cardiology /Electrophysiology Progress Note HPI / Interval History: Megan Nascimento is a 84 year old male with a PMH of chronic HFrEF, NICM, s/p DISCHARGE COORDINATOR-D, CKD IV, HTN, DVT/PE, diabetes who presented to [facility] on 01/28/25 secondary to concern for ADHF. [...] HFrEF EF now 12% 2/2 NICM. S/p DISCHARGE COORDINATOR-D. Stage C - Presented decompensated with volume [...] the cardiology office to obtain appropriate covering PLANT ASSIGNER/physician. Medications: Scheduled Meds[1] Infusion Medications: Continuous Meds[2] [...] 140 140 K 3 (more content not included)...[facility]07-15-2025 History of Present illness Narrative* Cindy Og, CHLOE - TUBE DRAW HELPER - 02/01/2025 8:15 AM EDT [facility] Cardiology /Electrophysiology Progress Note HPI / Interval History: Megan Nascimento is a 84 year old male with a PMH of chronic HFrEF, NICM, s/p DISCHARGE COORDINATOR-D, CKD IV, HTN, DVT/PE, diabetes who presented to [facility] on 01/28/25 secondary to concern for ADHF. [...] HFrEF EF now 12% 2/2 NICM. S/p DISCHARGE COORDINATOR-D. Stage C - Presented decompensated with volume [...] the cardiology office to obtain appropriate covering PLANT ASSIGNER/physician. Medications: Scheduled Meds[1] Infusion Medications: Continuous Meds[2] [...] 01/29/25 1710 01/30/25 1130 01/30/25 1539 01/31/25 12101/31/25 1728 NA 141 141 141 140 140 K 3.4* 3.6 3.6 3.6 4.0 CL 106 106 106 105 103 CO2 24 21* 21* 27 23 BUN 36* 32* 32* 30* 31* CREATININE 2.08* 1.78* 1.95* 1.94* 1.88* Recent Labs 01/29/25 1710 01/30/25 1539 01/31/25 1211 02/01/25 0326 WBC 5.3 5.0 4.4 4.2 HGB [...] Hdz CNP - 01/31/2025 9:34 AM EDT [facility] Cardiology /Electrophysiology Progress Note HPI / Interval History: Pt is a 84 year old male with a PMH significant for chronic HFrEF, NICM, s/p DISCHARGE COORDINATOR-D, CKD IV, HTN, DVT/PE, diabetes who presented to [facility] on 01/28/25 secondary to concern for ADHF. [...] restriction #HTN -SBP 120-130s. Continue GDMT #S/p DISCHARGE COORDINATOR-D -Following in our device clinic, last cardiac device check with EDUCATIONAL PARAPROFESSIONAL=98%, no events Addendum 1350: labs reviewed for [...] found for: EFBP, PLVEF, LVEFPHYS, LVEF2D, EF CHLOE Leiva CNP Date Of Service 01/31/2025 [1] cholecalciferol, 25 [...] Date: 01/28/2025 PCP: Gibson Roth (Inactive) Room#: W5541/W554 B BRIEF HOSPITAL COURSE: 84-year-old male presented [...] Information Primary Emergency Contact: AzamZuleyka Mobile Relation: Adult Basic Education Instructor Secondary Emergency Contact: AzamShaylee Relation: Child Jeremy Sanchez DO Division of Hospitalist Medicine [employer] [1] Past Medical History: Diagnosis Date Acute HFrEF (heart failure with reduced ejection fraction) ([facility]) 09/22/2020 Bladder cancer (HCC) CHF (congestive heart [...] (HCC) Presence of cardiac resynchronization therapy defibrillator (DISCHARGE COORDINATOR-D) 01/17/2022 PUD (peptic ulcer disease) Pulmonary embolism (HCC) Pulmonary fibrosis (HCC) Rosacea Stage 3b chronic kidney disease (HCC) 09/21/2020 Tachycardia [2] cholecalciferol, 25 mcg, Oral, [...] On: Kcal/kg Weight Used for Energy Requirements: Yolyn Weight for Energy Calculation (kg): 67 kg Total Energy Requirements (kcals/day): 25-28 kcal/kg = 3440-3755 kcal Weight Used for Protein Requirements: Yolyn Weight in Kg Used for Protein Requirements: [...] kg (193 lb 9.6 oz) (standing 01/28) Yolyn Body Weight (lbs) (Calculated): 148 lbs Yolyn Body Weight (Kg) (Calculated): 67 kg % Yolyn Body Weight (Calculated): 127.8 % BMI (kg/m2) [...] soon to determine Aleksandra Pak RD Contact: MediaV or *[phone] * Jabari Osman PA-C - 01/30/2025 8:05 AM EDT [facility] Cardiology /Electrophysiology Progress Note HPI / Interval History: Pt is a 84 year old male with a PMH significant for chronic HFrEF, NICM, s/p DISCHARGE COORDINATOR-D, CKD IV, HTN, DVT/PE, diabetes who presented to [facility] on 01/28/25 secondary to concern for ADHF. [...] electrolytes consider increase in dose tomorrow #S/p DISCHARGE COORDINATOR-D -Following in our device clinic, last cardiac device check with EDUCATIONAL PARAPROFESSIONAL=98%, no events Cardiology will continue to follow. [...] 1.84* 2.08* Recent Labs 01/28/25 0238 01/29/25 0606 01/29/25 1710 WBC 5.9 4.8 5.3 HGB 15.2 13.7 15.1 HCT 46.0 42.1 46.3 MCV 87.3 87.5 87.9 PLT 230 206 199 Recent Labs 01/28/25 0238 BNP 23,300* No results for input(s): TRIG, [...] mg, Oral, BID [2] * Marco Antonio Hlal Jr., DO - 01/30/2025 7:14 AM EDT [...] Primary Emergency Contact: Zuleyka Nascimento Mobile Relation: Adult Basic Education Instructor Secondary Emergency Contact: Negrito Nascimentosa Relation: Child Jeremy Sanchez DO Division of Hospitalist Medicine [facility] [1] Past Medical History: Diagnosis Date Acute HFrEF (heart failure with reduced ejection fraction) ([facility]) 09/22/2020 Bladder cancer (HCC) CHF (congestive heart failure) (HCC) Chronic HFrEF (heart failure with reduced ejection fraction) ([facility]) 09/21/2020 Chronic kidney disease DM (diabetes mellitus) (HCC) DM (diabetes mellitus) (HCC) DVT (deep venous thrombosis) (HCC) ED (erectile dysfunction) Follicular non-Hodgkin's lymphoma (HCC) GERD (gastroesophageal reflux disease) GERD (gastroesophageal reflux disease) HTN (hypertension) HTN (hypertension) Hyperlipidemia Left bundle branch block 09/11/2020 Non-ischemic cardiomyopathy (CMS/HCC) (HCC) Presence of cardiac resynchronization therapy defibrillator (DISCHARGE COORDINATOR-D) 01/17/2022 PUD (peptic ulcer disease) Pulmonary embolism (HCC) Pulmonary fibrosis (HCC) Rosacea Stage 3b chronic kidney disease (HCC) 09/21/2020 Tachycardia [2] cholecalciferol, 25 mcg, Oral, [...] bedside. States he had a trip to [place] couple days ago. Denies any cough, congestion, [...] Primary Emergency Contact: Zuleyka Nascimento Mobile Relation: Adult Basic Education Instructor Secondary Emergency Contact: Shaylee Nascimento Relation: Child Jeremy Sanchez DO Division of Hospitalist Medicine [employer] [facility] [1] Past Medical History: Diagnosis Date [...] (HCC) Presence of cardiac resynchronization therapy defibrillator (DISCHARGE COORDINATOR-D) 01/17/2022 PUD (peptic ulcer disease) Pulmonary embolism (HCC) Pulmonary fibrosis (HCC) Rosacea Stage 3b chronic kidney disease (HCC) 09/21/2020 Tachycardia [2] cholecalciferol, 25 mcg, Oral, [...] dextrose, dextrose, glucagon (rDNA), glucose [4] * Sia Lui, CHLOE - TUBE DRAW HELPER - 01/28/2025 12:50 PM EDT CARE PROGRESSION NOTE Diet order placed while pending transfer to [facility]. This patient was seen as a hospital courtesy for improved patient care and care progression. Thank you for allowing me to participate in the medical care of your patient. OSCAR INTERVENTIONS [x] Care Coordination & Progression [] Nursing Function [x] Orders Placed [] Symptom Assessment [] Patient Experience [] Patient / Caregiver Conversation documented in this [facility]07-14-2025 Plan of care note* Care Plan [...] Interventions Goal: Promote nutritional intake Outcome: Progressing [id number] Note* Care Coordination - Nelly Pisano RN - 01/31/2025 11:55 AM EDT Care Managment Initial Assessment Date: 01/31/2025 Patient Name: Megan Nascimento : 1940 Patient Information Source of Information: Patient Cognition/Language: WFL - Within Functional Limits Permission given to speak with patient sales promotion representative/caregiver as indicated: Yes Confirmation of Payer [...] Alone Support Systems: Children, Family members, Friends/neighbors, international trade manager/social studies teacher, Home carestaff Activities of Daily Living [...] Walker DME Provider: His daughter is his career services officer Patient's Goal/Discharge Plan Patient expects to be [...] follow for needs. . Nelly Pisano RN [facility] [id number] Note* Care Coordination - Nelly Pisano RN - 01/31/2025 11:55 AM EDT Care Managment Initial Assessment Date: 01/31/2025 Patient Name: Megan Nascimento : 1940 Patient Information Source of Information: Patient Cognition/Language: WFL - Within Functional Limits Permission given to speak with patient sales promotion representative/caregiver as indicated: Yes Confirmation of Payer with patient/family: Yes Payer Name: [employer] Medicare advantage [place]: No Confirmation of Primary Care Physician: Confirmed [...] Alone Support Systems: Children, Family members, Friends/neighbors, international trade manager/social studies teacher, Home carestaff Activities of Daily Living [...] Walker DME Provider: His daughter is his career services officer Patient's Goal/Discharge Plan Patient expects to be [...] follow for needs. . Nelly Pisano RN [facility] [id number] Nurse Note* Saundra Vinson RN - 01/31/2025 [...] care given). Prevention Measures in place, including: Apex sheet with pillows (in place), Pt declined Bilateralfoam heel protectors, off loading heels on pillows, Sacral foam and, Zinc/Moisture Barrier ointment. Moisture absorbant pad (in place), Bed Alarm On. Skin Care precaution order set in place d/t Simon score 18 on 01/28/2025. Dietitian consult in place. PT consult NA Simon > 3. D/W sandwich peddler skin assessment, preventions, and interventions implemented. Will continue to follow pt. Please Voicera for any questions or concerns. Saundra Vinson RN, BSN [facility] FoundationBvfczs29-46-4253 [facility] Cardiology /Electrophysiology Progress Note HPI / Interval History: Pt is a 84 year old male with a PMH significant for chronic HFrEF, NICM, s/p DISCHARGE COORDINATOR-D, CKD IV, HTN, DVT/PE, diabetes who presented to [facility] on 01/28/25 secondary to concern for ADHF. [...] restriction #HTN -SBP 120-130s. Continue GDMT #S/p DISCHARGE COORDINATOR-D -Following in our device clinic, last cardiac device check with EDUCATIONAL PARAPROFESSIONAL=98%, no events Addendum 1350: labs reviewed for [...] EFBP, PLVEF, LVEFPHYS, LVEF2D, EF Dena Curtis, OFFICE RN - TUBE DRAW HELPER Date Of Service 01/31/2025 [1] cholecalciferol, 25 mcg, Oral, Ngoc (more content not included)...[facility] [id number] NoteAttending Supervising Physician's Attestation Statement for Progress [...] Date: 01/28/2025 PCP: Gibson Roth (Inactive) Room#: [id number] B BRIEF HOSPITAL COURSE: 84-year-old male presented [...] due to renal dysfun (more content not included)...[facility] [id number] Plan of care note* Care Plan - [...] Interventions Goal: Promote nutritional intake Outcome: Progressing [facility] [id number] Plan of care note* Care Plan - [...] low, brakes on, call light in reach. T [facility] [id number] [facility] Cardiology /Electrophysiology Progress Note HPI / Interval History: Pt is a 84 year old male with a PMH significant for chronic HFrEF, NICM, s/p DISCHARGE COORDINATOR-D, CKD IV, HTN, DVT/PE, diabetes who presented to [facility] on 01/28/25 secondary to concern for ADHF. [...] electrolytes consider increase in dose tomorrow #S/p DISCHARGE COORDINATOR-D -Following in our device clinic, last cardiac device check with EDUCATIONAL PARAPROFESSIONAL=98%, no events Cardiology will continue to follow. [...] for: TROPDELTSEC Recent Labs 01/28/25 0238 01/29/25 0601/29/25 1710 NA 141 141 141 K 4.2 2.8* 3.4* CL 106 109* 106 CO2 21* 22* 24 BUN 40* 36* 36* CREATININE 2.37* 1.84* 2.08* Recent Labs 01/28/25 0238 01/29/2560501/29/25 1710 WBC 5.9 4.8 5.3 HGB 15.2 [...] Of Service 01/30/2025 [1 (more content not included)...[facility] [id number] NoteAttending Supervising Physician's Attestation Statement for Progress [...] History: Medical History[1] LABS: CBC: Recent Labs 01/28/258 01/29/25 0606 01/29/25 1710 WBC 5.9 4.8 [...] taken off Spirolactone d (more content not included)...[facility]07-12-2025 Plan of care note* Care Plan - [...] Goal: Free from fall injury Outcome: Progressing [facility] [id number] Consult note* Triston Garduno MD - 01/29/2025 8:15 AM EDTAssociated Order(s): IP CONSULT TO CARDIOLOGY [facility] Cardiology /Electrophysiology Consult Note Reason for Consult/Chief Complaint: Dyspnea Referring provider: Dr. Hall Established sanitor: Dr. Roth History of Present Illness: Megan Nascimento is a 84 y.o. 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 Initially presented at [facility] but transferred here for further management. [...] NICM HFimpEF (EF 20%--41% 2021), status post DISCHARGE COORDINATOR-D placement - Continue diuresis with IV furosemide [...] Hoffman, saw and evaluated the patient in W5-1/W B. I personally obtained the velazquez and [...] ejection fraction, hypertension who who presented to [facility] with a chief complaint of shortness of breath and volume overload. He was seen by Dr. Lund yesterday and transferred here to [facility] due to lack of beds. IV diuresis [...] Hoffman MD, PhD Advanced Heart Failure Cardiology [facility] [employer] [facility] [place] 1:12 PM 01/29/25 [facility] Work Phone: 1(519) 126-707707-12-2025 Consult note* Triston Garduno MD - 01/29/2025 8:15 AM EDTAssociated Order(s): IP CONSULT TO CARDIOLOGY [facility] Cardiology /Electrophysiology Consult Note Reason for Consult/Chief Complaint: Dyspnea Referring provider: Dr. Hall Established sanitor: Dr. Roth History of Present Illness: Megan Nascimento is a 84 y.o. 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 Initially presented at [facility] but transferred here for further management. [...] NICM HFimpEF (EF 20%--41% 2021), status post DISCHARGE COORDINATOR-D placement - Continue diuresis with IV furosemide [...] results found for: TROPDELTSEC Recent Labs 01/28/25 02301/29/25 06 NA 141 141 K 4.2 2.8* CL 106 109* CO2 21* 22* BUN 40* 36* CREATININE 2.37* 1.84* EGFR 26.2* 35.5* Recent Labs 01/28/25 02301/29/25 06 WBC 5.9 4.8 HGB 15.2 13.7 HCT [...] Hoffman, saw and evaluated the patient in W5-1/W5 B. I personally obtained the velazquez and [...] ejection fraction, hypertension who who presented to [facility] with a chief complaint of shortness of breath and volume overload. He was seen by Dr. Lund yesterday and transferred here to [facility] due to lack of beds. IV diuresis [...] Hoffman MD, PhD Advanced Heart Failure Cardiology [facility]. [facility] [place] 1:12 PM 01/29/25 * Wm Lund MD [...] 180lbs - Patient will be transferring to [facility], will put on the follow-up HF list [...] in the 24 hours ending 01/28/25 0910 @[id number]@ Gen: Comfortable, pleasant, on room air Neck: JVP up to angle of mandible CV: Regular, soft systolic murmur Pulm: Bilateral crackles Abd: Soft/NT Neuro: Nonfocal Extrem: Bilateral pitting edema up to above the knees Pertinent Labs: ABGs: No results found for: PHART, PO2ART, QJC5FAR INR: No results for input(s): INR in the last 72 hours. Cardiac Injury Profile: No results for input(s): CKTOTAL, CKMB, CKMBINDEX, TROPONINI in thelast 72 hours. Lipid Profile:No results found for: TRIG, HDL, LDLCALC, CHOL Hemoglobin A1C: No results found for: HGBA1C Wm Lund MD Cardiology [facility]. [facility] [place] 9:10 AM 01/28/25 documented in this [facility]07-12-2025 NoteAttending Supervising Physician's Attestation Statement for [...] bedside. States he had a trip to [place] couple days ago. Denies any cough, congestion, [...] LABS: CBC: Recent Labs 01/28/25 0238 01/29/25 06 WBC 5.9 4.8 RBC 5.27 4.81 HGB 15.2 13.7 HCT 46.0 42.1 MCV 87.3 87.5 RDW 19.5* 19.0* PLT 230 206 BMP: Recent Labs 01/28/258 01/29/2506 NA 141 141 K 4.2 2.8* CL [...] HF following Current diuresi (more content not included)...[facility] [id number] Plan of care note* Care Plan - [...] Goal: Free from fall injury Outcome: Progressing [facility] [id number] History and physical note* Rogelio Adams MD [...] 469 ms QTC Interval 507 ms P Woodruff 55 degrees QRS Woodruff 223 degrees T Wave Woodruff 37 degrees NC Interval 264 ms Basic metabolic panel Collection [...] Problems: Presence of cardiac resynchronization therapy defibrillator (DISCHARGE COORDINATOR-D) HTN (hypertension) Follicular non-Hodgkin's lymphoma (HCC) CKD 4 Hx PE Following with HF team Diuresis as able Following BMP Will check PVR Cont supportive jail medications otherwise Due to the review of [...] Strict intake and output Inpatient consult to Cardiology--[facility]; CHF exacerbation Inpatient consult to Wound [...] HFrEF (heart failure with reduced ejection fraction) ([facility]) 09/21/2020 Chronic kidney disease DM (diabetes mellitus) (HCC) DM (diabetes mellitus) (HCC) DVT (deep venous thrombosis) (HCC) ED (erectile dysfunction) Follicular non-Hodgkin's lymphoma (HCC) GERD (gastroesophageal reflux disease) GERD (gastroesophageal reflux disease) HTN (hypertension) HTN (hypertension) Hyperlipidemia Left bundle branch block 09/11/2020 Non-ischemic cardiomyopathy (CMS/HCC) ([facility]) Presence of cardiac resynchronization therapy defibrillator (DISCHARGE COORDINATOR-D) 01/17/2022 PUD (peptic ulcer disease) Pulmonary embolism [...] Daily, Moises Adan MD, 25 mcg at 07/11/25 0936 metoprolol succinate XL (Toprol-XL) 24 hr tablet 100 mg, 100 mg, Oral, Daily, Moises Adan MD, 100 mgat 01/28/25 09 [START ON 01/29/2025] pantoprazole (ProtoNix) EC tablet 40 mg, 40 mg, Oral, qAM AC, Moises Adan MD sacubitril-valsartan (Entresto) 24-26 MG per tablet 1 tablet, 1 tablet, Oral, BID, Moises Adan MD, 1tablet at 01/28/25 0935 sertraline (Zoloft) tablet 25 mg, 25 mg, [...] Adan MD, 20 mg at 01/28/25 0934 [facility] [id number] NoteHistory and Physical Admit Date: 01/28/2025 PCP: Gibson Roth (Inactive) CHIEF COMPLAINT: sob HISTORY OF PRESENT ILLNESS: Megan Nascimenot is a 84 y.o. male medical history [...] 469 ms QTC Interval 507 ms P Woodruff 55 degrees QRS Woodruff 223 degrees T Wave Woodruff 37 degrees NC Interval 264 ms Basic metabolic panel Collection [...] PRO BNP Collection T (more content not included)...[facility]07-11-2025 History and physical note* Rogelio Adams MD [...] 469 ms QTC Interval 507 ms P Woodruff 55 degrees QRS Woodruff 223 degrees T Wave Woodruff 37 degrees NC Interval 264 ms Basic metabolic panel Collection [...] Problems: Presence of cardiac resynchronization therapy defibrillator (DISCHARGE COORDINATOR-D) HTN (hypertension) Follicular non-Hodgkin's lymphoma (HCC) CKD 4 Hx PE Following with HF team Diuresis as able Following BMP Will check PVR Cont supportive jail medications otherwise Due to the review of [...] Strict intake and output Inpatient consult to Cardiology--[facility] CARDIOLOGY; CHF exacerbation Inpatient consult to Wound [...] HFrEF (heart failure with reduced ejection fraction) ([facility]) 09/22/2020 Bladder cancer (HCC) CHF (congestive heart [...] (HCC) Presence of cardiac resynchronization therapy defibrillator (DISCHARGE COORDINATOR-D) 01/17/2022 PUD (peptic ulcer disease) Pulmonary embolism [...] tablet 40 mg, 40 mg, Oral, qAM AC, Moises Adan MD sacubitril-valsartan (Entresto) 24-26 MG [...] Daily, Moises Adan MD, 0.4 mg at 01/28/25934 therapeutic multivitamin-minerals (Theragran-M) tablet, 1 tablet, Oral, Daily, Moises Adan MD, 1 tablet at 01/28/25935 [Held by provider] torsemide (Demadex) tablet 20 mg, 20 mg, Oral, BID, Moises Adan MD, 20 mg at 01/28/25 0934 documented in this [facility]07-11-2025 Emergency department Note* Aleksandra York RN - 01/28/2025 4:08 PM EDT Report given to Amos Crooks for transfer to [facility] [id number] Emergency department Note* Aleksandra York RN - 01/28/2025 4:08 PM EDT Report given to Amos Crooks for transfer to [facility] * Aleksandra York RN - 01/28/2025 4:06 [...] at rest. Denies chest pain. Seen at sanitor office yesterday and was noted to be [...] at rest. Denies chest pain. Seen at sanitor office yesterday and was noted to be [...] (HCC) Presence of cardiac resynchronization therapy defibrillator (DISCHARGE COORDINATOR-D) 01/17/2022 PUD (peptic ulcer disease) Pulmonary embolism [...] of coffee a day Latricia Landa DO 01/28/257 documented in this [place] [address]-11-2025 Emergency department Note* Aleksandra York RN - 01/28/2025 4:06 PM EDT Report called to 5 Marc Mojica RN [place] [id number] NoteCARE PROGRESSION NOTE Diet order placed while pending transfer to [facility]. This patient was seen as a hospital courtesy for improved patient care and care progression. Thank you for allowing me to participate in the medical care of your patient. OSCAR INTERVENTIONS [x] Care Coordination & Progression [] Nursing Function [x] Orders Placed [] Symptom Assessment [] Patient Experience [] [facility] Emergency department Note* Aleksandra York RN - 01/28/2025 12:30 PM EDT 250 cc of urine empted this am, pt wheeled to restroom, voided and stooled. [address] [id number] Telephone encounter Note* Telephone Encounter - Dania Mcknight RN - 01/28/2025 9:40 AM EDT ----- Message from Ralph Roth MD sent at 01/26/2025 5:16 PM EDT ----- Please call Friday for update, thank you [place] [id number] Miscellaneous Notes* Telephone Encounter - Dania Mcknight RN - 01/28/2025 9:40 AM EDT ----- Message from Ralph Roth MD sent at 01/26/2025 5:16 PM EDT ----- Please call Friday for update, thank you documented in this [facility]07-11-2025 Consult note* Wm Lund MD - [...] 180lbs - Patient will be transferring to [facility], will put on the follow-up HF list [...] in the 24 hours ending 01/28/25 0910 @[id number]@ Gen: Comfortable, pleasant, on room air Neck: JVP up to angle of mandible CV: Regular, soft systolic murmur Pulm: Bilateral crackles Abd: Soft/NT Neuro: Nonfocal Extrem: Bilateral pitting edema up to above the knees Pertinent Labs: ABGs: No results found for: PHART, PO2ART, FUE2MET INR: No results for input(s): INR in the last 72 hours. Cardiac Injury Profile: No results for input(s): CKTOTAL, CKMB, CKMBINDEX, TROPONINI in thelast 72 hours. Lipid Profile:No results found for: TRIG, HDL, LDLCALC, CHOL Hemoglobin A1C: No results found for: HGBA1C Wm Lund MD Cardiology [facility] [place] 9:10 AM 01/28/25 [email or web address] Work Phone: 1(569) 248-710307-11-2025 NoteCARDIOLOGY CONSULTATION Assessment/Plan: Cardiovascular Diagnoses # Acute [...] 180lbs - Patient will be transferring to [facility], will put on the follow-up HF list [...] in the 24 hours ending 01/28/25 0910 @[id number]@ Gen: Comfortable, pleasant, on room air Neck: JVP up to angle of mandible CV: Regular, soft systolic murmur Pulm: Bilateral crackles Abd: Soft/NT Neuro: Nonfocal Extrem: Bilateral pitting edema up to above the knees Pertinent Labs: ABGs: No results found for: PHART, PO2ART, EBY7SPR INR: No results for input(s): INR in the last 72 hours. Cardiac Injury Profile: No results for input(s): CKTOTAL, CKMB, CKMBINDEX, TROPONINI in the last 72 hours. Lipid Profile:No results found for: TRIG, HDL, LDLCALC, CHOL Hemoglobin A1C: No results found for: HGBA1C Wm Lund MD Cardiology [facility]. [facility] [place] 9:10 AM 01/28/25[facility]07-11-2025 Emergency department Note* Lucas Fernandez RN - 01/28/2025 2:17 AM EDT No cardiac monitoring available at this time. Provider aware [facility] [id number] Physician Emergency department Note* Latricia Landa DO [...] at rest. Denies chest pain. Seen at sanitor office yesterday and was noted to be [...] at rest. Denies chest pain. Seen at sanitor office yesterday and was noted to be [...] (HCC) Presence of cardiac resynchronization therapy defibrillator (DISCHARGE COORDINATOR-D) 01/17/2022 PUD (peptic ulcer disease) Pulmonary embolism [...] a day Latricia Landa DO 01/28/25 0317 [facility] [id number] History of Present illness Narrative* Ralph Roth MD - 01/26/2025 3:20 PM EDT Images from the original note were not included. [facility] CARDIOLOGY - [address] [facility] [address] Dept: [phone] Dept Loc: [phone] DATE of SERVICE:01/26/25 TIME of SERVICE: 3:59 [...] so he went to the hospital in [place]. Before he might have diverticulitis. His creatinine [...] ventricular pacing Focused cardiac ultrasound: Not done Kick Plate Installer present for focused cardiac ultrasound: Not applicable [...] HFrEF (heart failure with reduced ejection fraction) ([facility]) 09/22/2020 Bladder cancer ([facility]) CHF (congestive heart failure) ([facility]) Chronic HFrEF (heart failure with reduced ejection fraction) ([facility]) 09/21/2020 Chronic kidney disease DM (diabetes mellitus) ([facility]) DM (diabetes mellitus) ([facility]) DVT (deep venous thrombosis) ([facility]) ED (erectile dysfunction) Follicular non-Hodgkin's lymphoma ([facility]) GERD (gastroesophageal reflux disease) GERD (gastroesophageal reflux disease) HTN (hypertension) HTN (hypertension) Hyperlipidemia Left bundle branch block 09/11/2020 Non-ischemic cardiomyopathy (CMS/HCC) ([facility]) Presence of cardiac resynchronization therapy defibrillator (DISCHARGE COORDINATOR-D) 01/17/2022 PUD (peptic ulcer disease) Pulmonary embolism ([facility]) Pulmonary fibrosis ([facility]) Rosacea Stage 3b chronic kidney disease ([facility]) 09/21/2020 Tachycardia [2] Past Surgical History: Procedure [...] 180 tablet, Rfl: 3 documented in this [facility]05-25-2025 Radiology Diagnostic study note [facility] Imaging Services [address] [place], [place] [id number] Abdomen/Pelvis without Cont MR#: [id number] Acct: [id number] Name: AZAMMEGAN TAVO Rep #: [id number] : 1940 M 84 From: Pet er Darius MULLINS PCP: Dr. Rigoberto Durand MD Status: REG E R Study:Abdomen/Pelvis without Cont Date of Exa m: 12/12/24 Exam# [id number] Ordering Dr: Rena Lorenz ADDENDUM by Dr. [...] right lower quadrant. Reading Location: [facility] 12/12/241434 Date cc: Dr. Rigoberto Durand MD; [...] lower chance of developing HCC. Reading [facility] CC: Dr. Rigoberto Durand MD; DASIA Faye ~ Stockroom Clerk: Signed [facility]03-05-2025 History of Present illness Narrative* Ralph Roth MD - 09/22/2024 3:00 PM EST [facility] Telehealth Cardiology Note DATE of SERVICE: 09/22/24 TIME of SERVICE: 3:13 PM Chief Complaint: Chief Complaint Patient presents with 1 Year Follow-up History of Present Illness: Megan Nascmiento is a 84 y.o. male called for [...] HFrEF (heart failure with reduced ejection fraction) ([facility]) 09/22/2020 Bladder cancer (HCC) CHF (congestive heart failure) ([facility]) Chronic HFrEF (heart failure with reduced ejection fraction) ([facility]) 09/21/2020 Chronic kidney disease DM (diabetes mellitus) (HCC) DM (diabetes mellitus) ([facility]) DVT (deep venous thrombosis) ([facility]) ED (erectile dysfunction) Follicular non-Hodgkin's lymphoma (HCC) GERD (gastroesophageal reflux disease) GERD (gastroesophageal reflux disease) HTN (hypertension) HTN (hypertension) Hyperlipidemia Left bundle branch block 09/11/2020 Non-ischemic cardiomyopathy (CMS/HCC) ([facility]) Presence of cardiac resynchronization therapy defibrillator (DISCHARGE COORDINATOR-D) 01/17/2022 PUD (peptic ulcer disease) Pulmonary embolism ([facility]) Pulmonary fibrosis ([facility]) Rosacea Stage 3b chronic kidney disease ([facility]) 09/21/2020 Tachycardia Past Surgical History Past Surgical [...] redirect to the Timeline version of the [employer] Smart[employer]. Limited Telehealth exam Constitutional: [x]Alert []Oriented [...] 51 (H) 01/09/2024 CREATININE 2.34 (H) 01/09/2024 @[facility]@ Lab Results Component Value Date CHOL 166 [...] him. Will get him in for a qahz-od-ulod visit in about 3 months. Patient was [...] stated that they are currently in the [facility]. If the patient dominick minor, permission has been obtained by the parent or guardian for the patient to receive medical care at this visit. documented in this [facility]01-08-2025 Telephone encounter Note* Telephone Encounter - Di Hernández RN - 07/28/2024 9:25 AM EST ----- Message from Gibson Lamb sent at 07/28/2024 8:57 AM EST ----- Regarding: RE: Clinic check Called and spoke with the patient regarding both appointments (dates/time) for 09-22-2024 at the [facility]. ----- Message ----- From: Di Hernández [...] can R/S him with you at the [facility] on 08-04-2024 @ 10:30. [facility] [id number] Miscellaneous Notes* Telephone Encounter - Di Hernández RN - 07/28/2024 9:25 AM EST ----- Message from Gibson Lamb sent at 07/28/2024 8:57 AM EST ----- Regarding: RE: Clinic check Called and spoke with the patient regarding both appointments (dates/time) for 09-22-2024 at the [facility]. ----- Message ----- From: Di Hernández [...] can R/S him with you at the [place] office on 08-04-2024 @ 10:30. documented in this [facility]12-31-2024 Telephone encounter Note* Telephone Encounter - Bhargavi Pena RN - 07/20/2024 10:48 AM EST JAYMIE Renteria OFFICE RN-TUBE DRAW HELPER 01/09/24, labs 01/09/24. Rx pended. [facility] [id number] Miscellaneous Notes* Telephone Encounter - Bhargavi Pena RN - 07/20/2024 10:48 AM EST JAYMIE Renteria APRN-TUBE DRAW HELPER 01/09/24, labs 01/09/24. Rx pended. documented in this [facility]11-27-2024 Telephone encounter Note* Telephone Encounter - Katie Glass RN - 06/16/2024 8:49 AM EST Last OV with ErnieLeo Dexter on 01/09/24 [facility] [id number] Miscellaneous Notes* Telephone Encounter - Katie Glass RN - 06/16/2024 8:49 AM EST Last OV with ErnieLeo Dexter on 01/09/24 * Telephone Encounter - Shannan Mccartney - 06/15/2024 3:41 PM EST Patient called [facility] and wanted to see if he could fill his cialis through our pharmacy, He does nothave refills at [facility] pharmacy for this and It the last prescription that was sent to [facility] refills on it. Patient requested that we ask the cardio provider that prescribed it last time for refills. If appropriate please send prescription to [facility] pharmacy, Rx pended for review, Thank you! documented in this [facility]11-26-2024 Telephone encounter Note* Telephone Encounter - Shannan Mccartney - 06/15/2024 3:41 PM EST Patient called [facility] and wanted to see if he could fill his cialis through our pharmacy, He does nothave refills at [facility] pharmacy for this and It the last prescription that was sent to [facility] refills on it. Patient requested that we ask the cardio provider that prescribed it last time for refills. If appropriate please send prescription to [facility] pharmacy, Rx pended for review, Thank you! [facility] [id number] Telephone encounter Note* Telephone Encounter - Katie Glass RN - 06/15/2024 12:14 PM EST Last OV with Everton Renteria on 01/09/24 BMP 01/09/24 [facility] [id number] Miscellaneous Notes* Telephone Encounter - Katie Glass RN - 06/15/2024 12:14 PM EST Last OV with Everton Renteria on 01/09/24 BMP 01/09/24 documented in this [facility]08-31-2024 Telephone encounter Note* Telephone Encounter - Ralph Roth MD - 03/20/2024 8:43 AM EDT There is very little difference between the vasodilators sildenafil and tadalafil. I will make the switch and discuss it with him at my next visit. [facility] [id number] Miscellaneous Notes* Telephone Encounter - Ralph Roth MD - 03/20/2024 8:43 AM EDT There is very little difference between the vasodilators sildenafil and tadalafil. I will make the switch and discuss it with him at my next visit. * Telephone Encounter - Shannan Mccartney - 03/19/2024 12:44 PM EDT [facility]; he stated he [...] therapy change appropriate please send prescription to [facility] pharmacy, Thank you so much! documented in this encounterSMetroHealth Parma Medical CenterLjbldz44-48-9391 Telephone encounter Note* Telephone Encounter - Shannan Mccartney - 03/19/2024 12:44 PM EDT [facility] spoke with patient today; he [...] therapy change appropriate please send prescription to [facility] pharmacy, Thank you so much! [facility] [id number] Telephone encounter Note* Telephone Encounter - Katie Glass RN - 03/18/2024 2:50 PM EDT Last OV with Everton Renteria on 01/09/24 BMP 01/09/24 [facility] [id number] Miscellaneous Notes* Telephone Encounter - Katie Glass RN - 03/18/2024 2:50 PM EDT Last OV with Everton Renteria on 01/09/24 BMP 01/09/24 * Telephone Encounter - Inna Kaur - 03/18/2024 12:25 PM EDT Refill requested. RX pended. Thanks! documented in this encounterSMetroHealth Parma Medical [id number] Telephone encounter Note* Telephone Encounter - Inna Kaur - 03/18/2024 12:25 PM EDT Refill requested. RX pended. Thanks! [facility] [id number] History of Present illness Narrative* Petra Renteria, CHLOE - TUBE DRAW HELPER - 01/09/2024 10:30 AM EDT Images from the original note were not included. [facility] Cardiology Office Note DATE of SERVICE: 01/09/24 [...] transthoracic echo February 2022. He has a DISCHARGE COORDINATOR-D in place, monitored regularly by the device [...] me he had a recent admission to [facility]. 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, had toenails clipped, and then developed an [...] HFrEF (heart failure with reduced ejection fraction) ([facility]) 09/22/2020 Bladder cancer ([facility]) CHF (congestive heart failure) ([facility]) Chronic HFrEF (heart failure with reduced ejection fraction) ([facility]) 09/21/2020 Chronic kidney disease DM (diabetes mellitus) ([facility]) DM (diabetes mellitus) ([facility]) DVT (deep venous thrombosis) ([facility]) ED (erectile dysfunction) Follicular non-Hodgkin's lymphoma ([facility]) GERD (gastroesophageal reflux disease) GERD (gastroesophageal reflux disease) HTN (hypertension) HTN (hypertension) Hyperlipidemia Left bundle branch block 09/11/2020 Non-ischemic cardiomyopathy (CMS/HCC) ([facility]) Presence of cardiac resynchronization therapy defibrillator (DISCHARGE COORDINATOR-D) 01/17/2022 PUD (peptic ulcer disease) Pulmonary embolism ([facility]) Pulmonary fibrosis ([facility]) Rosacea Stage 3b chronic kidney disease ([facility]) 09/21/2020 Tachycardia Past Surgical History Past Surgical [...] giving any additional recommendations. -He is presently [place] [employer] functional class II, stage C. 2. DISCHARGE COORDINATOR D device in place, monitored regularly by [...] available urgent or expedient basis. Petra Renteria OFFICE RN/TUBE DRAW HELPER documented in this [facility]2024 Telephone encounter Note* Telephone Encounter - Coby Martínez RN - 12/22/2023 3:58 PM EDT OV 03/12/23 [facility] [id number] Miscellaneous Notes* Telephone Encounter - Coby Martínez RN - 12/22/2023 3:58 PM EDT OV 03/12/23 documented in this [facility]05-31-2024 Telephone encounter Note* Telephone Encounter - Dania Mcknight RN - 12/19/2023 1:52 PM EDT RBC 03/12/23 Results Test Name Value Interpretation Reference Range Facility Basic Metabolic Profile (BMP) on 12-02-2023 BUN/CRE 16.8 RATIO Normal 10-20 [facility] Comment on above: Performed By: #### L501.080 #### [facility] [address] [place], [address] CA,Total 8.7 mg/dL Normal 8.5-10.1 [facility] Comment on above: Performed By: #### L501.080 #### [facility] [address] [place], [address] Chloride [Moles/Vol] 111 mmol/L High 98-107 [facility] Comment on above: Performed By: #### L501.080 #### [facility] [address] [place], [address] CO2 [Moles/Vol] 26.0 mmol/L Normal 21.0-32.0 [facility] Comment on above: Performed By: #### L501.080 #### [facility] [address] [place], [address] Creatinine [Mass/Vol] 2.32 mg/dL High 0.70-1.30 [facility] Comment on above: Result Comment: The validity of the calculated GFR GFRAA in patients over 70 years has not been determined. Clinical correlation is essential. Performed By: #### L501.080 #### [facility] [address] [place], [address] ECRCL 25.36 ml/min Normal [facility] Comment on above: Performed By: #### L501.080 #### [facility] [address] [place], [address] EST GFR - AA 35 mL/min Low >60 [facility] Comment on above: Result Comment: GFR Calc Performed By: #### L501.080 #### [facility] [address] [place], [address] GAP 4 Low 5-15 [facility] Comment on above: Performed By: #### L501.080 #### [facility] [address] [place], [address] GFR/1.73 sq M.predicted among non-blacks MDRD (S/P/Bld) [Vol rate/Area] 29 mL/min/ Low >60 [facility] Comment on above: Result Comment: Non- GFR Calc Performed By: #### L501.080 #### [facility] [address] [place], [address] Glucose [Mass/Vol] 56 mg/dL Low 74-106 [facility] Comment on above: Performed By: #### L501.080 #### [facility] [address] [place], [address] Potassium [Moles/Vol] 3.9 mmol/L Normal 3.5-5.1 [facility] Comment on above: Performed By: #### L501.080 #### [facility] [address] [place], [address] Sodium [Moles/Vol] 141 mmol/L Normal 136-145 [facility] Comment on above: Performed By: #### L501.080 #### [facility] [address] [place], [address] Urea nitrogen [Mass/Vol] 39 mg/dL High 7-18 [facility] Comment on above: Performed By: #### L501.080 #### [facility] [address] [place], [address] [facility] [id number] Miscellaneous Notes* Telephone Encounter - Dania Mcknight RN - 12/19/2023 1:52 PM EDT RBC 03/12/23 Results Test Name Value Interpretation Reference Range Facility Basic Metabolic Profile (BMP) on 12-02-2023 BUN/CRE 16.8 RATIO Normal 10-20 [facility] Comment on above: Performed By: #### L501.080 #### [facility] [address] [place], [address] CA,Total 8.7 mg/dL Normal 8.5-10.1 [facility] Comment on above: Performed By: #### L501.080 #### [facility] [address] [place], [address] Chloride [Moles/Vol] 111 mmol/L High 98-107 [facility] Comment on above: Performed By: #### L501.080 #### [facility] [address] [place], [address] CO2 [Moles/Vol] 26.0 mmol/L Normal 21.0-32.0 [facility] Comment on above: Performed By: #### L501.080 #### [facility] [address] [place], [address] Creatinine [Mass/Vol] 2.32 mg/dL High 0.70-1.30 [facility] Comment on above: Result Comment: The validity of the calculated GFR GFRAA in patients over 70 years has not been determined. Clinical correlation is essential. Performed By: #### L501.080 #### [facility] [address] [place], [address] ECRCL 25.36 ml/min Normal [facility] Comment on above: Performed By: #### L501.080 #### [facility] [address] [place], [address] EST GFR - AA 35 mL/min Low >60 [facility] Comment on above: Result Comment: GFR Calc Performed By: #### L501.080 #### [facility] [address] [place], [address] GAP 4 Low 5-15 [facility] Comment on above: Performed By: #### L501.080 #### [facility] [address] [place], [address] GFR/1.73 sq M.predicted among non-blacks MDRD (S/P/Bld) [Vol rate/Area] 29 mL/min/ Low >60 [facility] Comment on above: Result Comment: Non- GFR Calc Performed By: #### L501.080 #### [facility] [address] [place], [address] Glucose [Mass/Vol] 56 mg/dL Low 74-106 [facility] Comment on above: Performed By: #### L501.080 #### [facility] [address] [place], [address] Potassium [Moles/Vol] 3.9 mmol/L Normal 3.5-5.1 [facility] Comment on above: Performed By: #### L501.080 #### [facility] [address] [place], [address] Sodium [Moles/Vol] 141 mmol/L Normal 136-145 [facility] Comment on above: Performed By: #### L501.080 #### [facility] [address] [place], [address] Urea nitrogen [Mass/Vol] 39 mg/dL High 7-18 [facility] Comment on above: Performed By: #### L501.080 #### [facility] [address] [place], [address] documented in this [facility]11-22-2023 Telephone encounter Note* Telephone Encounter - Dania Mcknight RN - 06/11/2023 3:30 PM EST PC to patient. LMOM with OSCAR recommendations. I asked for a call back to further discuss. [facility] [id number] Miscellaneous Notes* Telephone Encounter - Dania Mcknight RN - 06/11/2023 3:30 PM EST PC to patient. LMOM with OSCAR recommendations. I asked for a call back to further discuss. * Telephone Encounter - Dania Mcknight RN - 06/11/2023 2:35 PM EST RBC 03/12/23 BMP 09/10/22 documented in this [facility] [id number] Telephone encounter Note* Telephone Encounter - Dania Mcknight RN - 06/11/2023 2:35 PM EST RBC 03/12/23 BMP 09/10/22 [facility] [id number] Miscellaneous Notes* Telephone Encounter - Anali Moore - 05/12/2023 2:49 PM EDT Not our pt please refuse and close. Anali Moore documented [facility] this [facility] History of Present illness Narrative* Ralph Roth MD - 03/12/2023 9:00 AM EDT Images from the original note were not included. [facility] [address] [facility] [address] Dept: [phone] Dept Loc: [phone] DATE of SERVICE:03/12/23 TIME of SERVICE: 8:47 [...] HFrEF (heart failure with reduced ejection fraction) ([facility]) ([facility]) 09/22/2020 Bladder cancer ([facility]) CHF (congestive heart failure) ([facility]) ([facility]) Chronic HFrEF (heart failure with reduced ejection fraction) ([facility]) ([facility]) 09/21/2020 Chronic kidney disease DM (diabetes mellitus) ([facility]) DM (diabetes mellitus) ([facility]) DVT (deep venous thrombosis) ([facility]) ED (erectile dysfunction) Follicular non-Hodgkin's lymphoma ([facility]) GERD (gastroesophageal reflux disease) GERD (gastroesophageal reflux disease) HTN (hypertension) HTN (hypertension) Hyperlipidemia Left bundle branch block 09/11/2020 Non-ischemic cardiomyopathy ([facility]) ([facility]) Presence of cardiac resynchronization therapy defibrillator (DISCHARGE COORDINATOR-D) 01/17/2022 PUD (peptic ulcer disease) Pulmonary embolism ([facility]) Pulmonary fibrosis ([facility]) Rosacea Stage 3b chronic kidney disease ([facility]) 09/21/2020 Tachycardia Past Surgical History Past Surgical [...] heart failure is compensated, I would estimate [place] Heart [employer] class II, stage C, warm [...] people do get relief of pain from pet caregiver or acupuncture. If he wants to pursue those, thatis reasonable. We need to avoid opioids and NSAIDs. Educationally, reviewed all this with him and we will see him back in 6 months with one of our nurse practitioners or physician assistants and withme in a year. documented in this [facility]08-21-2023 Miscellaneous Notes* Telephone Encounter - Brinda Bourne APRN.CNP - 03/10/2023 10:19 AM EDT I do not know this patient. Perhaps refill was for PCP Dr. Estevez? Brinda Bourne APRN.CNP * Telephone Encounter - Anali Moore - [...] and advise. Anali Moore documented in this [facility]Mer[facility]08-16-2023 Telephone encounter Note * Telephone Encounter [...] 03-04-2023 Cholesterol [Mass/Vol] 287 mg/dL High 200 [facility] Comment on above: Result Comment: <200 mg/dL Desirable 200-240 mg/dL Borderline >240 mg/dL High Risk Performed By: #### L500.2500, L500.4100 #### [facility] [address] [place], [address] Cholesterol in HDL [Mass/Vol] 27 mg/dL Low [facility] Comment on above: Result Comment: The drugs N-Acetylcysteine and Metamizole may falsely depress this assay. Reference Range HDL <40 mg/dL Low HDL Cholesterol HDL >or= 60 mg/dL High HDL Cholesterol Performed By: #### L500.2500, L500.4100 #### [facility] [address] [place], [address] LDL TNP Normal 0-130 [facility] Comment on above: Performed By: #### L500.2500, L500.4100 #### [facility] [address] [place], [place], [address] Triglyceride [Mass/Vol] 576 mg/dL High [facility] Comment on above: Result Comment: The drugs N-Acetylcysteine and Metamizole may falsely depress this assay. TRIGLYCERIDE IS GREATER THAN 400 mg/dL. LDL RESULT IS INVALID AND WILL NOT BE REPORTED. Serum Triglycerides Reference Interval Normal <150 mg/dL Borderline high 150 - 199 mg/dL High 200 - 499 mg/dL Very High > or = 500 mg/dL Performed By: #### L500.2500, L500.4100 #### [facility] [address] [place], [place], [address] VLDL TNP Normal 5-40 [facility] Comment on above: Performed By: #### L500.2500, L500.4100 #### [facility] [address] [place], [place], [address] [facility] [id number] Miscellaneous Notes* Telephone Encounter - Dania Mcknight [...] to resume per PCP receommendations and will NICHOLAS LEAL. Reminded him of appt next week. He verbalized understanding. Lipid Profile on 03-04-2023 Cholesterol [Mass/Vol] 287 mg/dL High 200 [facility] Comment on above: Result Comment: <200 mg/dL Desirable 200-240 mg/dL Borderline >240 mg/dL High Risk Performed By: #### L500.2500, L500.4100 #### [facility] [address] [place], [address] Cholesterol in HDL [Mass/Vol] 27 mg/dL Low [facility] Comment on above: Result Comment: The drugs N-Acetylcysteine and Metamizole may falsely depress this assay. Reference Range HDL <40 mg/dL Low HDL Cholesterol HDL >or= 60 mg/dL High HDL Cholesterol Performed By: #### L500.2500, L500.4100 #### [facility] [address] [place], [address] LDL TNP Normal 0-130 [facility] Comment on above: Performed By: #### L500.2500, L500.4100 #### [facility] [address] [place], [address] Triglyceride [Mass/Vol] 576 mg/dL High [facility] Comment on above: Result Comment: The drugs N-Acetylcysteine and Metamizole may falsely depress this assay. TRIGLYCERIDE IS GREATER THAN 400 mg/dL. LDL RESULT IS INVALID AND WILL NOT BE REPORTED. Serum Triglycerides Reference Interval Normal <150 mg/dL Borderline high 150 - 199 mg/dL High 200 - 499 mg/dL Very High > or = 500 mg/dL Performed By: #### L500.2500, L500.4100 #### [facility] [address] [place], [address] VLDL TNP Normal 5-40 [facility] Comment on above: Performed By: #### L500.2500, L500.4100 #### [facility] [address] [place], [address] * Telephone Encounter - Marley Kc - [...] stop it, thank you documented in this [facility]08-16-2023 Telephone encounter Note* Telephone Encounter - Marley Kc - 03/05/2023 11:39 AM EDT PT has questions regarding restarting Rosuvastatin [facility] [id number] History of Present illness Narrative* Petra Renteria, OFFICE RN - TUBE DRAW HELPER - 09/10/2022 9:00 AM EST Images from the original note were not included. [facility] Note DATE of SERVICE: 09/10/22 [...] (heart failure with reduced ejection fraction) (CMS/HCC) ([facility]) 09/22/2020 Bladder cancer (CMS/HCC) ([facility]) CHF (congestive heart failure) (CMS/HCC) ([facility]) Chronic HFrEF (heart failure with reduced ejection fraction) (CMS/HCC) ([facility]) 09/21/2020 Chronic kidney disease DM (diabetes mellitus) (HCC) DM (diabetes mellitus) (HCC) DVT (deep venous thrombosis) ([facility]) ED (erectile dysfunction) Follicular non-Hodgkin's lymphoma (CMS/HCC) (HCC) GERD (gastroesophageal reflux disease) GERD (gastroesophageal reflux disease) HTN (hypertension) HTN (hypertension) Hyperlipidemia Left bundle branch block 09/11/2020 Non-ischemic cardiomyopathy (CMS/HCC) (HCC) Presence of cardiac resynchronization therapy defibrillator (DISCHARGE COORDINATOR-D) 01/17/2022 PUD (peptic ulcer disease) Pulmonary embolism [...] and Plan: 1. Nonischemic cardiomyopathy-presently well compensated, [place] [employer] functional class II, stage C [...] Follow-up-6 months and as needed. Petra Renteria APRN/TUBE DRAW HELPER documented in this encounterSMetroHealth [facility] Medical [id number] Telephone encounter Note* Telephone Encounter - Dania Mcknight RN - 08/23/2022 1:23 PM EST Images from the original note were not included. Ralph Roth MD You 18 hours ago (7:14 PM) RC Please give trial off statin, thank you; till next visit PC to patient. Reviewed recommendations. He would like me to call back and leave a with recommendations. I will do so. He verbalized understanding. I called and LM on with recommendations and reminder about f/u appt 09/10. [facility] [id number] Telephone encounter Note* Telephone Encounter - Dania [...] Will D/W RBC about trial off statin. [facility] [id number] Telephone encounter Note* Telephone Encounter - Ralph Roth MD - 08/21/2022 7:02 PM EST Please call and see if he is still on spironolactone. If he is, please have him stop it, thank you [facility] [id number] Telephone encounter Note* Telephone Encounter - Dania Mcknight RN - 07/16/2022 11:04 AM EST PC to patient. LMOM to call office. [facility] [id number] Miscellaneous Notes* Telephone Encounter - Dania Mcknight [...] legs to be weak? documented in this encounterSLisa [place]ille [id number] Telephone encounter Note* Telephone Encounter - Dania Mcknight RN - 07/11/2022 2:42 PM EST PC to pt. LMOM to call office. [facility]12-22-2022 Telephone encounter Note* Telephone Encounter - Marley Kc - 07/11/2022 1:03 PM EST Patient asking if any of his medications would cause his legs to be weak? [facility]11-01-2021 NoteHospitalist Discharge Summary Megan Nascimento : 1940 [...] Discharge Medications: Megan Nascimento Home Medication Instructions APOORVA:[id number] Printed on:05/21/21 5457 Medication Information albuterol (PROVENTIL) (2.5 MG/3ML) 0.083% [...] 1 tablet by mouth daily Recommended Follow-up: Rigoberto Durand MD [address] [place] [address] [address] [facility] [address] In 1 week post hospital fu appt sanitor In 2 weeks post hospital fu appt Readmission Risk Risk of Unplanned (more content not included)...[facility]07-15-2021 NoteHospitalist Discharge Summary Megan Nascimento : [...] acute/chronic cholecystitis. Seen by gen surgery and sanitor and not candidate for lap/dinah given cardiac [...] Discharge Medications: Megan Nascimento Home Medication Instructions APOORVA:[id number] Printed on:02/01/21 0663 Medication Information albuterol (PROVENTIL) (2.5 MG/3ML) 0.083% [...] vitamin B-12 (CYANOCOBALAMIN) 10 (more content not included)...[facility]03-09-2021 NoteName: Megan Nascimento Date of : [...] HFrEF (heart failure with reduced ejection fraction) ([facility]) Personal history of DVT Procedures: HOSPITAL COURSE : Mr. Nascimento was admitted from the office to [facility] for increasing weakness, fatigue, exertional dyspnea and a wet cough. He had 3-4+ bilateral lower extremity edema up to his hips and an 8 lb weight gain since his recent hospital discharge for elective DISCHARGE COORDINATOR-D. He was IV diuresed and transitioned back [...] cardiomyopathy. Secondary Discharge diagnosis: GABI/CKD Discharge Medications: AzamMegan Home Medication Instructions APOORVA:[id number] Printed on:09/26/20 1012 Medication Information albuterol (PROVENTIL) [...] mg by mouth ngoc (more content not included)...[facility] Discharge summary Author Shaun Taveras [facility] November 27, 2023 8:41am Note Date/Time November 27, 2023 7:55am [facility] Medical Records Department [address] [place] [address] Emergency Department Summary 11/27/23 MR#: [id number] Acct: [id number] Name: MEGAN NASCIMENTO Rep #:[id number] : [...] was brought to the hospital for evaluation [facility] Medical History Anticoagulant-induced bleeding Benign positional vertigo [...] PO DAILY 06/28/21 [History Last Taken Unknown] dflaoljpzytx-fjj-clnhs acid-vit K-lycop 400 mcg-20 mcg-370 mcg tablet [...] 90.4 H Lymph % (Auto) 2.1 L [place] % (Auto) 4.0 Eos % (Auto) 0.4 [...] Clarity Clear Urine pH 5.0 Ur Specific Clarks 1.015 Urine Protein Negative Urine Glucose (UA) [...] Orders Clinical Impression: Generalized weakness, Leukocytosis, Rhabdomyolysis, Aqunf-og-tblaqkw kidney injury Prescriptions: No Action sucralfate 100 [...] Provider] - Disposition Disposition: Acute Care Hospital [facility] What to do if you have Problems For any increased pain, shortness of breath, bleeding, nausea or vomiting, chestpain, or any unexpected problems, contact your Primary Care Provider. Call [facility] ([phone]) or report to the closest Emergency Room. Call 911 if necessary. 11/27/23 0841 <Electronically signed by Shaun Taveras DO> Cosigner Signature (if applicable): CC: Dr. Rigoberto Durand MD ~ Signed [facility] Work Phone: Discharge summary Author [facility] Note Date/Time April 05, 2025 2:31am [facility] Medical Records Department [address] [place] [address] Emergency Department Summary 04/05/25 MR#: [id number] Acct: [id number] Name: MEGAN NASCIMENTO Rep #:[id number] : 1940 84 From: Shaun Taveras DO PCP: Dr. Riogberto Durand MD Status:REG E R Location: ED HPI History of Present Illness Chief Complaint: Fall Informant: patient, family and EMS Narrative Narrative: Patient is an 84-year-old male with past medical history of congestive heart failure insulin-dependent type 2 diabetes hypothyroidism and hypertension. He lives at home alone. He states that today he fell like he had to use the restroom and therefore he went and sat on the toilet. He states he was there between 2 and 6 PM. He states he finally decided that he should get up and therefore he grabbed his rollator and stood up but then felt extremely weak onceagain and reportedly slid down onto the floor/shower. He states he did not strike his head or have loss of consciousness. He states he laid there until hewas found and EMS was able to help him up and this was approximately another 5 hours or so. He denies any pain at this time but secondary to his persistent weakness inability to care for himself and concern for rhabdomyolysis based on his prolonged downtime he was brought in for evaluation [facility] Medical History Chronic pain of toe of [...] 04/10 Unknown History tablet,extended release 24 hr iwewxjukftya-dio-zyrbz acid-vit 1 tab PO DAILY not on [...] Pain 1-10 Or Fever >100.7 #0 tabs doxycycline monohydrate 100 mg 100 mg PO [...] da ys #0 12/02/23 Unknown Rx tabs doxycycline hyclate 100 mg tablet 100 mg PO BID Unknown History Allergy/AdvReac Type Severity Reaction Status Date / Time No Known Allergies Allergy Verified 04/05/25 00:00 Family History Other Cancer Hypertension Surgical History History of permanent cardiac pacemaker placement Social History household members: spouse Smoking Status: Never smoker alcohol intake: never substance use type: does not use ROS ROS ED Constitutional Constitutional ED: Denies chills or fever(s) Eyes Eyes: Denies blurry vision or change in vision ENT ENT ED: Denies sore throat Cardiovascular Cardiovascular: Reports other Details: Negative syncope ; Denies chest pain, palpitations or racing heartbeat Respiratory/Chest Respiratory/Chest: Denies cough or dyspnea Gastrointestinal Gastrointestinal: Denies abdominal pain, diarrhea, nausea or vomiting Genitourinary Genitourinary ED: Denies dysuria Musculoskeletal Musculoskeletal: Reports other Details: Positive leg swelling which is chronic in nature per patient ; Denies arthralgias, back pain or neck pain Integumentary Denies rash Neurologic Neurologic: Reports weakness; Denies headache(s) Hematologic/Lymphatic Hematologic/Lymphatic: Denies easy bleeding or easy bruising EXAM Physical Exam Const Vital Signs: 04/04/25 23:54 04/05/25 00:04 04/05/25 00:04 Temperature 97.9 F Temperature Source Oral Pulse Rate 62 61 Respiratory Rate 18 18 Respiratory Effort Normal Non-Labored Respiratory Depth Normal Respiratory Pattern Normal Blood Pressure 114/67 104/72 Blood Pressure Mean 82 82 Pulse Ox 95 92 Oxygen Delivery Method Room Air Room Air Room Air 04/05/25 01:49 Temperature 97.9 F Temperature Source Pulse Rate 62 Respiratory Rate 19 H Respiratory Effort Respiratory Depth Respiratory Pattern Blood Pressure 113/71 Blood Pressure Mean 85 Pulse Ox 97 Oxygen Delivery Method Positive well nourished and well developed General Appearance ED: well developed HEENT Reports dry mucous membranes HEENT Narrative: No signs of depressed or basilar skull fracture Mouth ED: Yes dry mucous membranes Mouth: dry mucous membranes Eyes PERRL and EOMs intact bilaterally General Eye ED: Negative for scleral icterus Neck supple Neck Narrative: No bony deformity or step-off of the cervical spine; no midline tenderness to palpation Mild JVD noted on the right Chest Wall palpation of chest normal Chest Narrative: No bony deformity or subcutaneous emphysema; no pain with palpation Resp normal respiratory effort Resp Narrative: Breath sounds are diminished throughout with crackles in the bilateral bases Cardio regular rate and regular rhythm GI non-tender, non-distended and no masses GI Narrative: Abdomen soft nontender nondistended with hypoactive bowel sounds. No voluntary guarding or rigidity or pulsatile mass. Auscultation: hypoactive bowel sounds Palpation: soft Back/Spine Back/Spine Narrative: No bony deformity or step-off of the thoracic or lumbar spine; no midline tenderness to palpation Extremity Extremity Narrative: There is +2 pitting edema to the bilateral lower extremities which is equal and symmetric Pelvis is stable there is no shortening or external rotation of either lower extremity No signs of long bone injury such as bony deformity or joint effusion Compartments are soft and compressible going against compartment syndrome Neuro oriented x3 and CN's II-XII intact bilaterally Neuro Narrative: Patient is awake and alert to person place and time Cranial nerves II through XII are grossly intact without focal neurologic deficit Patient is overall generalized weakness but no focal deficit is noted Sensorium / Orientation: alert Psych mental status grossly normal Skin No skin turgor normal Skin Narrative: Chronic stasis changes to the bilateral lower legs No secondary findings to suggest cellulitis or abscess No abrasions or ecchymosis noted Skin turgor is increased MDM MDM MDM Narrative Medical decision making narrative: Patient arrived to the ER with stable vitals. He reported he was sitting on thetoilet for multiple hours and then he stood and did not have dizziness or syncope but simply felt too weak to hold himself up and slid down. There is no report of loss of consciousness and there is no signs of head injury or injury to other parts of the body. Therefore I have low concern for internal trauma ora subarachnoid or subdural hemorrhage and do not feel the need for head CT or long bone imaging. With the reported downtime there is high likelihood for rhabdomyolysis so CPK level was obtained. This was elevated at approximately 450 indicating mild rhabdomyolysis. Patient does have chronic kidney disease and his creatinine is at baseline. His TSH is elevated which could be contributing to his swelling and weakness but there is no alteration to his mental status and the value does not correlate with myxedema coma. The chest x-ray shows bilateral pleural effusions but based on patient's history and chart review this is most likely chronic in nature and as he is not in respiratory distress or hypoxic there is no need for BiPAP. At this time the patient is tooweak to ambulate. He may need gentle fluid hydration based on his rhabdomyolysis and with his chronic kidney disease and congestive heart failure hewould need to be monitored and to in order ensure he does not go into volume overload. Moreover as he is too weak to ambulate and he lives alone he is not able to care for himself. I do feel that his safest option will be admission [facility] for continued monitoring as well as PT/OT evaluation with potentialplacement in rehab or [facility]. The family states the patient was in a rehab center roughly a year ago and did well. The patient states that he would prefer a rehab placement based on his progressive/recurrent weakness. Secondaryto his I contacted the hospitalist who agrees to accept the patient for continued treatment and care with potential [facility]/rehab placement regarding his weakness and inability to care for self. History & Record Review Discussion w/independent historian: Patient and Family Lab Data Attestation: I reviewed the patient's lab results. Labs: Laboratory Results - last 24 hr 04/05/25 00:25 WBC 6.0 RBC 5.46 Hgb 16.2 Hct 46.9 MCV 85.9 MCH 29.7 MCHC 34.5 RDW Std Deviation 60.8 H RDW Coeff of Anuradha 20.6 H Plt Count 194 MPV 11.2 Immature Gran % (Auto) 0.500 Neut % (Auto) 70.4 H Lymph % (Auto) 14.4 L [place] % (Auto) 11.2 H Eos % (Auto) 2.2 Baso % (Auto) 1.3 H Absolute Neuts (auto) 4.2 Absolute Lymphs (auto) 0.86 Nucleated RBC % 0 Differential Comment SCANNED Plt Morphology Comment LARGE Anisocytosis 1+ Ovalocytes RARE Sodium 141 Potassium 3.7 Chloride 103 Carbon Dioxide 19.6 L Anion Gap 18 H BUN 36 H Creatinine 2.38 H Estim Creat Clear Calc 23.30 L Est GFR (MDRD) Non-Af 26 L BUN/Creatinine Ratio 15.0 Glucose 75 Calcium 9.4 Magnesium 2.0 Total Creatine Kinase 449 H NT pro BNP II > 47347 H TSH 13.700 H Radiography Diagnostic Testing: Clinical Impression(s) from Imaging Studies Chest X-Ray 04/05/25 00:36 IMPRESSION: Moderate bilateral pleural effusions. Passive atelectatic airspace disease of the lower lobes. Moderate central pulmonary venous congestion. Moderate interstitial pulmonary congestion. AICD is in good position. Enlarged cardiac silhouette. Reading Location: [place] [address] Chest x-ray as interpreted by the emergency medicine physician reveals moderate bilateral pleural effusions with atelectasis without obvious infiltrate or pneumothorax Management Discussion w/another healthcare provider: Hospitalist Discharge Plan Triage Chief Complaint: Fall ED Provider: Shaun Taveras Dx/Rx/DC Orders Clinical Impression: Congestive heart failure, Generalized weakness, Rhabdomyolysis, Hypertension, Chronic kidney disease Prescriptions: No Action sucralfate 100 mg/mL suspension [...] 325 mg PO DAILY Qty: 30 0RF sertraline 50 mg tablet 50 mg PO DAILY gabapentin 400 mg capsule 400 mg PO TID glimepiride 1 mg tablet 1 mg PO DAILY Rx Instructions: source is per pt PCP med list rosuvastatin 20 mg tablet 20 mg PO DAILY Rx Instructions: source is per pcp med list sacubitril-valsartan [Entresto] 24-26 mg tablet 1 tab PO BID [...] PO BID 5 Days Qty: 10 0RF oxycodone 5 [...] PO DAILY 30 Days Qty: 0 0RF doxycycline hyclate 100 mg tablet 100 mg PO BID Primary Care Provider: Rigoberto Durand Referrals: Rigoberto Durand MD [Primary Care Provider] - Print Language: Mauritanian Disposition Disposition: Acute Care Hospital [facility] What to do if you have Problems For any increased pain, shortness of breath, bleeding, nausea or vomiting, chestpain, or any unexpected problems, contact your Primary Care Provider. Call [facility] ([phone]) or report to the closest Emergency Room. Call 911 if necessary. 04/05/25 0231 <Electronically signed by Shaun Taveras DO> Cosigner Signature (if applicable): CC: Dr. Rigoberto Durand MD ~ Signed [facility] Work Phone: Evaluation note* Diagnosis Onset Date Resolution Status GI bleed acute MIAU (minor aphthous ulceration) acute Congestive heart failure acu te GI bleed acute Orthostatic hypotension reso lved Upper GI bleed resolved Acid reflux acute Constipation acute GI bleed acute [facility] Work Phone: Evaluation note* Diagnosis Onset Date Resolution Status Acid reflux acute Constipation acute [facility] Work Phone: Evaluation note* Diagnosis Onset Date Resolution Status Acid reflux chronic Constipation chronic Acid reflux chronic Constipation chronic GI bleed resolved [facility] Work Phone: Evaluation note* Diagnosis Chronic systolic (congestive) heart failure (HCC) Chronic HFrEF (heart failure with reduced ejection fraction) ([facility]) documented in this encounter [facility] Work Phone: Evaluation note* Diagnosis Onset Date Resolution Status Acid reflux chronic Constipation chronic GI bleed resolved Spinal stenosis of lumbar region with radiculopathy acute [facility] Work Phone: Evaluation noteNo assessment information available [facility] Work Phone: Evaluation note* Diagnosis Hyperlipidemia, unspecified hyperlipidemia type Encounter for adjustment or management of cardiac device documented in this encounter [facility]* Diagnosis Acute HFrEF (heart failure with reduced ejection fraction) ([facility]) Encounter for adjustment or management of cardiac device documented in this encounter [facility]* Diagnosis Acute HFrEF (heart failure with reduced ejection fraction) ([facility]) documented in this encounter [facility]* Diagnosis Erectile dysfunction, unspecified erectile dysfunction type documented in this encounter [facility] [place]* Diagnosis Non-ischemic cardiomyopathy (CMS/HCC) ([facility])- Primary Other primary cardiomyopathies Primary hypertension Unspecified essential hypertension Acute HFrEF (heart failure with reduced ejection fraction) ([facility]) ICD (implantable cardioverter-defibrillator), biventricular, in situ Other iron deficiency anemia documented in this encounter [facility] [place] [facility]* Diagnosis Chronic HFrEF (heart failure with reduced ejection fraction) ([facility]) Encounter for adjustment or management of cardiac device Encounter for adjustment or management of cardiac device documented in this encounter [facility] [place] [facility]* Diagnosis Acute HFrEF (heart failure with reduced ejection fraction) ([facility]) Encounter for adjustment or management of cardiac device documented in this encounter [facility]* Diagnosis Erectile dysfunction, unspecified erectile dysfunction type Encounter for adjustment or management of cardiac device documented in this encounter [facility]* Diagnosis Acute HFrEF (heart failure with reduced ejection fraction) (CMS/HCC) (HCC)- Primary Presence of cardiac resynchronization therapy defibrillator (DISCHARGE COORDINATOR-D) Non-ischemic cardiomyopathy (CMS/HCC) (HCC) Other primary cardiomyopathies Encounter for adjustment or management of cardiac device [facility] Chronic HFrEF (heart failure with reduced ejection fraction) (HCC)- Primary Encounter for adjustment or management of cardiac device [facility] Diagnosis Acute HFrEF (heart failure with reduced ejection fraction) (HCC) Encounter for adjustment or management of cardiac device [facility]* Diagnosis Primary hypertension- Primary Unspecified essential hypertension Acute systolic heart failure (HCC) Acute systolic heart failure Acute on chronic clinical systolic heart failure (HCC) Encounter for adjustment or management of cardiac device [facility]* Diagnosis Acute systolic congestive heart failure (HCC)- Primary Bilateral leg edema Edema Acute systolic congestive heart failure (HCC) Chronic kidney disease, unspecified CKD stage AICD (automatic cardioverter/defibrillator) present Automatic implantable cardiac defibrillator in situ Presence of cardiac resynchronization therapy defibrillator (DISCHARGE COORDINATOR-D) HTN (hypertension) Unspecified essential hypertension Follicular non-Hodgkin's lymphoma (HCC) Encounter for adjustment or management of cardiac device [facility]* Diagnosis Cellulitis- Primary Cellulitis and abscess of unspecified site Cellulitis of lower extremity, unspecified laterality Acute HFrEF (heart failure with reduced ejection fraction) (HCC) Cellulitis of lower extremity, unspecified laterality Encounter for adjustment or management of cardiac device [facility]* Diagnosis Non-ischemic cardiomyopathy (CMS/HCC) (HCC)- Primary Other primary cardiomyopathies Acute HFrEF (heart failure with reduced ejection fraction) (HCC) ICD (implantable cardioverter-defibrillator), biventricular, in situ Encounter for adjustment or management of cardiac device [facility] Diagnosis Chronic HFrEF (heart failure with reduced ejection fraction) (HCC) Encounter for adjustment or management of cardiac device documented in this encounter [facility] Author Rigoberto Durand [facility] Note Date/Time April 05, 2025 2:38am [facility] Medical Records Department [address] [place] [address] History & Physical Exam 04/05/25 0229 MR#: [id number] Acct: [id number] Name: MEGAN NASCIMENTO Rep #:[id number] : 1940 84 From: Rigoberto Durand MD PCP: Dr. Rigoberto Durand MD Status:REG E R Location: ED HPI - General General Date of Admission: 04/05/25 Date of Service: 04/05/25 Chief Complaint: Fall/generalized weakness HPI Narrative MEGAN NASCIMENTO, is a 84 M who presents to the emergency room by squad after falling at home and remaining on the ground for more than 4 hours. Patient has a significant past medical history of congestive heart failure, insulin-dependent diabetes type 2, hypothyroidism and hypertension and lives at home alone. After using the restroom at home at approximately 2:00 this afternoon the patient remained in the restroom until approximately 6 PM but was unable to get up on his own and use the rollator to slide down to the floor shower area where he remained until help arrived. He states he did not strike his head or lose consciousness. He laid there until he was found and EMS was able to help him up after approximately 5 more hours. He denied any chest pain, shortness ofbreath, fevers or chills but due to concern for generalized weakness and inability to care for himself adequately there was concern as well for rhabdomyolysis he was brought in for further evaluation. Laboratory studies reveal white blood cell count of 6.0, hemoglobin 16.2, hematocrit 46.9, platelets 194, sodium 141, potassium 3.7, chloride 103, bicarb 19.6, BUN 36, creatinine 2.38, creatinine kinase 449, BN TP 70,000, TSH 13.7, chest x-ray shows moderate pleural effusions and moderate vascular congestion with an enlarged cardiac silhouette. Patient is well-known to me as he has beenmy patient in the outpatient setting for many years and we did discuss his CODE STATUS at this visit and he wishes to remain full code at present time. He willbe admitted for generalized weakness, CHF and likely will need placement in rehab facility for strength and rehab. [facility] Medical History (Updated 04/05/25 @ 02:[address] Rigoberto Durand MD) Chronic pain of toe of left foot [...] 04/10 Unknown History tablet,extended release 24 hr zphlrlydxvpw-[id number]-[id number] acid-vit 1 tab PO DAILY not on [...] Pain 1-10 Or Fever >100.7 #0 tabs doxycycline monohydrate 100 mg 100 mg PO [...] da ys #0 12/02/23 Unknown Rx tabs doxycycline hyclate 100 mg tablet 100 mg PO BID Unknown History Allergy/AdvReac Type Severity Reaction Status Date / Time No Known Allergies Allergy Verified 04/05/25 00:00 Family History Other Cancer Hypertension Surgical History History of permanent cardiac pacemaker placement Social History household members: spouse Smoking Status: Never smoker alcohol intake: never substance use type: does not use ROS Constitutional Constitutional: Reports weakness; Denies chills or fever(s) Eyes Eyes: Denies blurry vision ENT HEENT: Denies abnormal hearing Cardiovascular Cardiovascular: Denies chest pain Respiratory/Chest Respiratory/Chest: Reports shortness of breath with exertion; Denies cough Gastrointestinal Gastrointestinal: Denies abdominal pain Genitourinary Genitourinary: Denies dysuria Musculoskeletal Musculoskeletal: Denies back pain Integumentary Integumentary: Reports wounds; Denies dry skin Neurologic Neurologic: Reports weakness Psychiatric Psychiatric: Denies anxiety Vital Signs Vital Signs Vital Signs: 04/04/25 23:54 04/05/25 00:04 04/05/25 00:04 Temperature 97.9 F Temperature Source Oral Pulse Rate 62 61 Respiratory Rate 18 18 Respiratory Effort Normal Non-Labored Respiratory Depth Normal Respiratory Pattern Normal Blood Pressure 114/67 104/72 Blood Pressure Mean 82 82 Pulse Ox 95 92 Oxygen Delivery Method Room Air Room Air Room Air 04/05/25 01:49 Temperature 97.9 F Temperature Source Pulse Rate 62 Respiratory Rate 19 H Respiratory Effort Respiratory Depth Respiratory Pattern Blood Pressure 113/71 Blood Pressure Mean 85 Pulse Ox 97 Oxygen Delivery Method Weight Weight: 189 lb 2.506 oz Body Mass Index (BMI) 29.7 Physical Exam Const alert, oriented x3 and no apparent distress General Appearance: cooperative and well developed HEENT normocephalic and head/scalp atraumatic Eyes PERRL and EOMs intact bilaterally Neck no lymphadenopathy Lymph Lymphatic: no lymphadenopathy noted Resp normal respiratory effort, normal air movement and clear to auscultation bilaterally Cardio regular rate, regular rhythm, S1 normal heart sound and S2 normal heart sound GI normal to inspection, nondistended, normoactive bowel sounds Extremity normal capillary refill Skin Wound Narrative: Bedsore present Neuro no focal motor deficits and no sensory deficits noted Motor Exam: general weakness Psych thought process normal, cooperative and affect normal Results Lab / Micro Data 04/05/25 00:25 04/05/25 00:25 Labs: Laboratory Results - last 24 hr 04/05/25 00:25: WBC 6.0, RBC 5.46, Hgb 16.2, Hct 46.9, MCV 85.9, MCH 29.7, MCHC 34.5, RDW Std Deviation 60.8 H, RDW Coeff of Anuradha 20.6 H, Plt Count 194, MPV 11.2, Immature Gran % (Auto) 0.500, Neut % (Auto) 70.4 H, Lymph % (Auto) 14.4 L,[place] % (Auto) 11.2 H, Eos % (Auto) 2.2, Baso % (Auto) 1.3 H, Absolute Neuts (auto) 4.2, Absolute Lymphs (auto) 0.86, Nucleated RBC % 0, Differential CommentSCANNED, Plt Morphology Comment LARGE, Anisocytosis 1+, Ovalocytes RARE, Sodium 141, Potassium 3.7, Chloride 103, Carbon Dioxide 19.6 L, Anion Gap 18 H, BUN 36 H, Creatinine 2.38 H, Estim Creat Clear Calc 23.30 L, Est GFR (MDRD) Non-Af 26 L, BUN/Creatinine Ratio 15.0, Glucose 75, Calcium 9.4, Magnesium 2.0, Total Creatine Kinase 449 H, NT pro BNP II > 00922 H, TSH 13.700 H Imaging Radiology Impression Chest X-Ray 04/05/25 00:36 IMPRESSION: Moderate bilateral pleural effusions. Passive atelectatic airspace disease of the lower lobes. Moderate central pulmonary venous congestion. Moderate interstitial pulmonary congestion. AICD is in good position. Enlarged cardiac silhouette. Reading Location: [place] [address] Assessment & Plan Assessment/Plan (1) Fall: (2) Rhabdomyolysis: (3) Generalized weakness: (4) Congestive heart failure: (5) Diabetes: PLAN: Plan 1 generalized weakness with gentle fall at home?admit patient to progressive care unit, consult physical therapy for evaluation and treatment, consult case management for discharge planning to possible rehab facility post discharge fromhospital setting to help with strength and rehabilitation. 2. Congestive heart failure?monitor oxygen and maintain oxygen saturation greater than 90%, continue routine home medications to manage congestive heart failure will add echocardiogram if 1 has not been done in the calendar year 3. Diabetes?continue routine insulin therapy, get CBC BMP, A1c and FLP in a.m. 4. Abnormal TSH?patient is in the acute care setting will follow-up as outpatient in my office and discuss and retest and decide if necessary to treat with Synthroid 5. DVT prophylaxis?SCDs 6. Chronic kidney disease encourage fluids as tolerated 7. CODE STATUS?full code verified Charges/Coding Visit Charges Inpatient E&M: 99547 Init Hosp L2 04/05/25 0238 <Electronically signed by Rigoberto Durand MD> Cosigner Signature (if applicable): CC: Dr. Rigoberto Durand MD~ Signed [facility] Work Phone: Hospital Discharge instructions Additional Instructions Follow-up with your PCP and return for any other concerns.[facility] Work Phone: Hospital Discharge instructionsAdditional Instructions Follow-up with your doctors in outpatient setting. Return with worsening symptoms or any other concerns. Have your kota removed in approximately 5 days by your primary care physician. Showed them the CT results that were printed off for your records.[facility] Work Phone: Reason for referral (narrative)No reason for referral information availableWWilson Health Work Phone: History of Present Illness * [...] questions answered. documented in this encounter* Cindy Og APRN - MARIIA - 09/14/2020 7:57 AM EST Heart Failure Daily Progress Note Follow up for: HFrEF, volume overload SUBJECTIVE: Today, Megan Higuera Azam states he is feeling less bladder pressure after cortés placed as well as improvements in his BLE swelling. He denies chest pain/pressure but does still has some tenderness around DISCHARGE COORDINATOR-P site. Denies dizziness or feeling lightheaded. SCHEDULED [...] be in ADHF with volume overload after DISCHARGE COORDINATOR-D placement - Diuresing with lasix gtt at [...] restriction, 2gm Na diet #LBBB POD#3 s/p DISCHARGE COORDINATOR-D by Dr. Gates - Placed 09/11/20 - [...] - Follows with Dr. Anirudh Arshad with [facility] - Continue flomax - Renal u/s to r/o hydro #Iron def anemia - PO iron Attempted to call Zuleyka Nascimento per patient's request to update on plan of care. Left VM and will try again tomorrow. Seen and discussed with Dr. Lindsey [facility] Heart Failure Program [address] [place] [address] Office: [phone] * Mackenzie Bridges MD - 09/14/2020 5:42 [...] K chloride given. BMP recheck at noon. Quality Improvement Consultant, PGY-6 Pager [phone] * Natan Vicente MD - 09/13/2020 2:12 PM EST CARDIOLOGY PROGRESS NOTE Chart and interval events reviewed. Reason for Visit Megan Nascimento is a 80 y.o. 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 // HFrEF/NI-DCM (EF 14%), Stage C, FC III with decompensation - s/p DISCHARGE COORDINATOR-D for LBBB // Transient hypotension - possibly [...] Nascimento is an 80 yo M s/p DISCHARGE COORDINATOR-D for HFrEF (LVEF 14%), LBBB, had transient [...] of Cardiovascular Disease, Division of Heart Failure [facility] 3:48 PM 09/13/20 * Jaylin Irvin DTR - 09/13/2020 10:01 AM EST Nutrition rescreen completed. Chart reviewed. Patient to be monitored and followed by the diet clinical dietetic technician. \ * Gibson Dugan APRN - TUBE DRAW HELPER - 09/13/2020 7:50 AM EST CARDIOLOGY PROGRESS NOTE Chart and interval events reviewed. Reason for Visit s/p DISCHARGE COORDINATOR-D SUBJECTIVE: Megan Nascimento states left shoulder pain [...] Infusions: furosemide (LASIX) 1mg/ml infusion 10 mg/hr (09/12/20 185) [MAR Hold] sodium chloride CBC: Recent Labs [...] Chronic Systolic Heart Failure: LBBB: Status post DISCHARGE COORDINATOR-D implant 09/11/[address] Gates. HF team [...] interval events reviewed. Reason for Visit s/p DISCHARGE COORDINATOR-D SUBJECTIVE: Megan Higuera Azam states soreness at [...] normal. Data: Scheduled Meds: Reviewed Continuous Infusions: [SEP Hold] sodium chloride CBC: Recent Labs 09/12/2029 [...] Class III. S/p [facility] Compatible DISCHARGE COORDINATOR-D Implant. Device teaching done and booklet given. [...] year old with HFrEF, BiV failure, sp DISCHARGE COORDINATOR-D yesterday had transient hypotension overnight. - Patient's [...] Dr. Les Kinney who is in agreement. Quality Improvement Consultant, PGY-6 Pager [phone] * Rena Lagos RPH - 09/11/2020 5:56 PM EST Megan Nascimento was ordered CoQ-10. Per [facility] Policy #4005, herbals and certain dietary supplements are automatically discontinued for the duration of the hospital stay. The product remains on the Home Medication List for resumption at discharge unless specifically discontinued by the prescriber. If there is a need for acute treatment using this agent, please contact the pharmacy for further assistance. Rena Lagos RPh documented in this encounter* Saira Espinoza, [employer] REPAIRER - 09/26/2020 11:19 AM EST [facility] Respiratory Care Department Progress Note SpO2 [...] home Y/N = Yes * Saira Mark, RD, LD - 09/25/2020 3:43 PM EST Comprehensive [...] medical history significant for NICM HFrEF 14%, DISCHARGE COORDINATOR-D, LBBB, +3 MR/TR, non-Hodgkins lymphoma (s/p chemotherapy), bladder cancer, BPH, PE/DVT (dx in [place], on [facility]), and CKD. PT HAD on namclvmje-2-9+ BLLE up to his hips. He is up 8lbs s george discharge. He states that he does abide by a low sodium diet, and the 64 ounce fluid restriction. His main concern is getting his gallbladder out as he has a lot of pain and diarrhea(ef 14%) Malnutrition Assessment: Malnutrition Status: Insufficient data Context: Acute Illness Estimated Daily Nutrient Needs: Energy (kcal): 6645-6586; Weight Used for Energy Requirements: Yolyn Protein (g): 54- 67; Weight Used for Protein Requirements: Yolyn(.8-1) Fluid (ml/day): Per MD recommendations; Method Used [...] lb (88.5 kg)(standing scale) Usual Body Weight: Yolyn Body Weight: 148 lbs; % Yolyn Body Weight 118.9 % BMI: 27.6 Adjusted [...] 09/25/2020 10:43 AM EST Occupational Therapy Facility/Department: [facility] Daily Treatment Note NAME: Megan Nascimento [...] as schedule permits. Renée Moreira OT * Jeanne Dat, DO - 09/25/2020 10:36 AM EST Images from the original note were not included. Hospitalist Progress Note 09/25/2020 10:36 AM [phone]: Please page me ([phone]) for patient care issues. [phone]: Please page IMS night Hospitalist for any [...] Daily potassium chloride 20 mEq Oral TID sacubitril-valsartan 1 tablet Oral BID apixaban 2.5 mg Oral BID ferrous sulfate 325 mg Oral BID metoprolol succinate 100 mg Oral Daily gabapentin 400 mg Oral BID tamsulosin 0.4 mg Oral Daily pantoprazole 40 mg Oral QAM AC therapeutic multivitamin-minerals 1 tablet Oral Daily vitamin B-12 1,000 mcg Oral Daily vitamin D3 1,000 Units Oral Daily LABS: CBC: Recent Labs 09/23/2041309/24/2032709/25/20339 WBC 5.9 5.7 5.3 RBC 4.14* 3.91* 4.16* HGB 11.0* 10.3* 11.1* HCT 34.2* 32.6* 35.0* MCV 82.6 83.4 84.2 RDW 33.2* 33.7* 33.5* PLT 245 230 223 BMP: Recent Labs 09/23/2041309/24/2032709/25/20339 NA 137 136 136 K 3.5 3.2* [...] Resp 16 Ht 5' 7 (1.702 m) Wt176 lb (79.8 kg) SpO2 100% BMI 27.57 [...] non-focal. Assessment 1. HFrEF exacerbation 2. S/p DISCHARGE COORDINATOR-D placement 09/11/20 3. 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 HTN [...] of Hospitalist Medicine Inpatient Medical Services PAGER: [phone] * Ralph Roth MD - 09/25/2020 9:42 [...] HFrEF (heart failure with reduced ejection fraction) ([facility]) Acute on chronic clinical systolic heart failure ([facility]) Resolved Problems: * No resolved hospital problems. * RECOMMENDATIONS: His HFrEF is improved, marked diuresis without a significant change in renal failure; hopefully CRTis starting to improve LV function. We will switch to oral diuretics today and home tomorrow or Friday if all goes well. Ralph Roth MD * Kashmir Nunez MD - 09/25/2020 5:24 AM EST [facility] Progress Note Subjective/ 80 [...] mg 325 mg Oral BID CHLOE Ch TUBE DRAW HELPER 325 mg at 09/24/20 1739 metoprolol succinate (TOPROL XL) extended release tablet 100 mg 100 mg Oral Daily Petra Renteria APRN - TUBE DRAW HELPER 100 mg at 09/24/20 0757 gabapentin (NEURONTIN) capsule 400 mg 400 mg Oral BID CHLOE Ch CNP 400 mg at 09/24/202000 tamsulosin (FLOMAX) capsule 0.4 mg 0.4 mg Oral Daily CHLOE Ch TUBE DRAW HELPER 0.4 mg at 09/24/20 075 pantoprazole (PROTONIX) tablet 40 mg 40 mg Oral QAM AC Petra Renteria APRN - MARIIA 40 mg at 09/25/20 0518 therapeutic multivitamin-minerals 1 tablet 1 tablet Oral Daily Petra Renteria APRN - TUBE DRAW HELPER 1 tablet at 09/24/20 075 vitamin B-12 (CYANOCOBALAMIN) tablet 1,000 mcg 1,000 mcg Oral Daily Petra Renteria APRN - TUBE DRAW HELPER 1,000 mcg at 09/24/20 0757 Vitamin D (CHOLECALCIFEROL) tablet 1,000 Units 1,000 Units Oral Daily Petra Renteria APRN - TUBE DRAW HELPER 1,000 Units at 09/24/20 0758 furosemide (LASIX) [...] Nunez MD - 09/24/2020 5:36 PM EST [facility] Progress Note Subjective/ 80 [...] CHLOE Ch CNP 0.4 mg at 09/24/20 0757 pantoprazole (PROTONIX) tablet 40 mg 40 mg Oral QAM AC CHLOE Ch CNP 40 mg at 09/24/20 0501 therapeutic multivitamin-minerals 1 tablet 1 tablet Oral Daily CHLOE Ch CNP 1 tablet at 09/24/20 075 vitamin B-12 (CYANOCOBALAMIN) tablet 1,000 mcg 1,000 mcg Oral Daily CHLOE Ch CNP 1,000 mcg at 09/24/20 075 Vitamin D (CHOLECALCIFEROL) tablet 1,000 Units 1,000 Units Oral Daily Petra J Dexter, OFFICE RN - TUBE DRAW HELPER 1,000 Units at 09/24/20 0758 furosemide (LASIX) infusion 10 mg/hr (09/24/20 0552) Data/ Recent Labs 09/22/20 0506 09/23/20 0414 09/24/20 0328 WBC 4.8 5.9 5.7 HGB [...] 09/24/2020 11:57 AM EST Physical Therapy Facility/Department: [facility] Initial Assessment NAME: Megan Nascimento : [...] lymphoma and bladder CA as well as DISCHARGE COORDINATOR-D placement 09/11. Exam: AM-PAC PT Education: PT [...] cane or walker) Transfer Assistance: Independent Active Mushroom Farmer: Yes Mode of Transportation: SUV Cognition Cognition [...] Mobility Inpatient CMS G-Code Modifier : CJ (09/24/20 1157) Therapy Time Individual Concurrent Group Co-treatment [...] 182 lb 6.4 oz (82.7 kg) 09/22/20 07 191 lb (86.6 kg) 09/21/202000 [...] 10 mg/hr (09/24/20 0552) CBC: Recent Labs 09/23/2041309/24/20327 WBC 5.9 5.7 HGB 11.0* 10.3* HCT 34.2* 32.6* PLT 245 230 BMP: Recent Labs 09/23/204 09/24/20327 NA 137 136 K 3.5 3.2* CL [...] Last cardiac catheterization: 04/2019 No significant disease 09/11/2020-DISCHARGE COORDINATOR-D implant IMPRESSIONS/RECOMMENDATIONS: 1. Heart failure with severely [...] with increased doses of Entresto. 2. Recent DISCHARGE COORDINATOR-D implant 09/11/2020- stable, V-pacing 3. Hypertension- stable/controlled 4. Renal insuffiencey- stable, will continue to closely monitor during IV diuresis. - also followed by Nephrology Electronicallysigned by Petra Renteria APRN - TUBE DRAW HELPER on 09/24/2020 at 7:59 AM I, Dr. Jama, personally performed a face to face diagnostic evaluation. I have reviewed the PLANT ASSIGNER's documentation and edited the clinical findings, assessment, and plan to reflect my own evaluation andmedical decision making. In addition to above, history and exam by me shows pt alert nad rrr lungs clear, edema decreased. The plan is to likely transition off lasix gtt and metolazone in a.m. Replete K+. * Kashmir Nunez MD - 09/23/2020 4:38 PM EST [facility] Progress Note Subjective/ 80 y.o. year old male who we are seeing in consultation for GABI on CKD. PO intake okay. BP stable. Good urine output. Breathing stable. ROS otherwise negative. No change in pfsh. Objective/ Vitals: 09/23/20 1300 09/23/20 1400 09/23/20 1426 09/23/20 1502 BP: 116/74 112/71 121/74 Pulse: 81 91 96 Resp: 16 18 28 Temp: 97.6 F (36.4 C) TempSrc: [...] mg/hr Intravenous Continuous Petra Gong APRN - TUBE DRAW HELPER 2 mL/hr at 09/22/20 1545 10 mg/hr at 09/22/20 1545 albuterol (PROVENTIL) nebulizer solution 1.25 mg 1.25 mg Nebulization Q6H PRN Mauro Padgett MD 1.25 mg at 09/23/20 1426 sacubitril-valsartan (ENTRESTO) 24-26 MG per tablet 1 tablet 1 tablet Oral BID Petra Renteria APRN - TUBE DRAW HELPER 1 tablet at 09/23/20 0906 apixaban (ELIQUIS) tablet 2.5 mg 2.5 mg Oral BID Petra Renteria APRN - TUBE DRAW HELPER 2.5 mg at 09/23/20 0908 ferrous sulfate (IRON 325) tablet 325 mg 325 mg Oral BID WC Petra Renteria APRN - MARIIA 325 mg at 09/23/20 0909 metoprolol succinate (TOPROL XL) extended release tablet 100 mg 100 mg Oral Daily Petra Renteria APRN - TUBE DRAW HELPER 100 mg at 09/23/20 0906 gabapentin (NEURONTIN) capsule 400 mg 400 mg Oral BID Petra Renteria APRN - TUBE DRAW HELPER 400 mg at 09/23/20 0906 tamsulosin (FLOMAX) capsule 0.4 mg 0.4 mg Oral Daily Petra Renteria APRN - TUBE DRAW HELPER 0.4 mg at 09/23/20 0909 pantoprazole (PROTONIX) tablet 40 mg 40 mg Oral QAM AC Petra Renteria APRN - TUBE DRAW HELPER 40 mg at 09/23/20 0909 therapeutic multivitamin-minerals 1 tablet 1 tablet Oral Daily Petra Renteria APRN - TUBE DRAW HELPER 1 tablet at 09/23/20 0907 vitamin B-12 (CYANOCOBALAMIN) tablet 1,000 mcg 1,000 mcg Oral Daily Petra Renteria APRN - TUBE DRAW HELPER 1,000 mcg at 09/23/20 0907 Vitamin D (CHOLECALCIFEROL) tablet 1,000 Units 1,000 Units Oral Daily Petra Renteria APRN - TUBE DRAW HELPER 1,000 Units at 09/23/20 0908 furosemide (LASIX) [...] lymphoma and bladder CA as well as DISCHARGE COORDINATOR-D placement 09/11. Exam: [facility] Assistance / Modification: SBA OT Education: [...] cane or walker) Transfer Assistance: Independent Active Mushroom Farmer: Yes Mode of Transportation: [facility] Objective Vision: Within Functional Limits [...] reviewed. Reason for Visit CHF-f/u SUBJECTIVE: Megan Nascimento states feeling OK. Denies any present symptoms [...] Last cardiac catheterization: 04/2019 No significant disease 09/11/2020-DISCHARGE COORDINATOR-D implant IMPRESSIONS/RECOMMENDATIONS: 1. Heart failure with reduced EF exacerbation- good diuresis overnight - neg 1,650 overnight - Lasix drip continues, metolazone 5 mg daily - Toprol 100 mg daily and Entresto 24/26 mg 1 tab twice daily. Pt has a hx of hypotension with increased doses of Entresto. 2. Recent DISCHARGE COORDINATOR-D implant 09/11/2020- stable, V-pacing 3. Hypertension- stable/controlled 4. Renal insuffiencey- Creatinine is mildly elevated compared to baseline. Continue to monitor during IV diuresis -Nephrology also consulted Electronicallysigned by Petra Renteria APRN - TUBE DRAW HELPER on 09/23/2020 at 7:47 AM I, Dr. Jama, personally performed a face to face diagnostic evaluation. I have reviewed the PLANT ASSIGNER's documentation and edited the clinical findings, assessment, [...] chart review, pt limited to 64 ounces/day FOOD SERVICE DRIVER. 2. RD provided written diet education (Cardiac [...] Diet & Heart Failure Nutrition Therapy from [facility] Attempted to verbally review, however, pt very fatigued, falling asleep multiple times during instruction. RD to re-attempt diet education closer to discharge date if a ppropriate. Malnutrition Assessment: Malnutrition Status: Insufficient data Context: Acute Illness Estimated Daily Nutrient Needs: Energy (kcal): 6525-7525; Weight Used for Energy Requirements: Yolyn Protein (g): 67-80; Weight Used for Protein Requirements: Yolyn(1.0-1.2 g/kg) Fluid (ml/day): Per MD recommendations Nutrition [...] kg) Usual Body Weight: Appears around 182#-187# Yolyn Body Weight: 148 lbs; % Yolyn Body Weight 131.8 % BMI: 30.5 Adjusted [...] Contact: [phone] * Petra Renteria APRN - TUBE DRAW HELPER - 09/22/2020 8:06 AM EST CARDIOLOGY PROGRESS NOTE Chart and interval events reviewed. Reason for Visit HFrEF- exacerbation-f/u SUBJECTIVE: Megan C Bright states feels a little less SOB [...] Meds: Reviewed Continuous Infusions: CBC: Recent Labs 09/21/20 2018 09/22/20 0506 WBC 5.5 4.8 HGB 11.7* 10.6* [...] Last cardiac catheterization: 04/2019 No significant disease 09/11/2020-DISCHARGE COORDINATOR-D implant IMPRESSIONS/RECOMMENDATIONS: 1. Heart failure with reduced EF exacerbation- decompensated - [place] [employer] Functional Class - 3, stage D - IV lasix 80 mg twice daily continues- will monitor daily weights, intake and output - Entresto 24/26 mg 1 tab twice daily and Toprol XL 100 mg daily continues. 2. 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 ACP-Advance Directive ACP-Power of Corner Former Latest Code Status on File Code Status Date Activated Date Inactivated Comments Full Code 09/11/2020 5:51 PM Full Code 09/11/2020 11:11 AM 09/11/2020 5:51 PM Latest Code Status on File Code Status Date Activated Date Inactivated Comments Full Code 09/11/2020 5:51 PM 09/15/2020 7:16 PM Advance Directive Response Recorded Date/ Time Living Will No August 20 10:36pm Power of Corner Former Yes August 20, 2021 10:36pm Latest Code Status on File Code Status Date Activated Date Inactivated Comments Full Code 05/13/2021 10:55 PM 05/21/2021 5:56 PM Full Code 01/30/2021 4:10 PM 02/01/2021 4:49 PM Full Code 09/11/2020 5:51 PM 09/15/2020 7:16 PM Full Code 09/11/2020 11:11 AM 09/11/2020 5:51 PM Advance Directive Response Recorded Date/ Time Living Will No August 20 9:36pm Power of Corner Former Yes August 20, 2021 9:36pm Advance Directive Response Recorded Date/ Time Living Will No November 27, 2023 4: 43am Power of Corner Former No November 27, 2023 4:43am Advance Directive Response Recorded Date/ Time Do you have a Healthcare Power of Corner Former? Yes December 12, 2024 11:46am Date Activated Date Inactivated Comments 01/29/2025 2:17 PM 02/01/2025 8:33 PM Date Activated Date Inactivated Comments 02/10/2025 6:22 AM 02/15/2025 6:29 PM Date Activated Date Inactivated Comments 01/29/2025 2:17 PM 02/01/2025 8:33 PM Advance Directive Response Recorded Date/ Time Do you have a Healthcare Power of Corner Former? Yes December 12, 2024 11:46am Do you have a Healthcare Power of Corner Former? No April 01, 2025 12:38pm Advance Directive Response Recorded Date/ Time Do you have a Healthcare Power of Corner Former? Yes December 12, 2024 11:46am Do you have a Healthcare Power of Corner Former? No April 01, 2025 12:38pm Do you have a Healthcare Power of Corner Former? Yes April 05, 2025 12:04am Name of Medical Power of Corner Former tommy April 05, 2025 12:04am Reason for Referral Status Reason Specialty Diagnoses [...] Echo 2D Doppler Color Ralph Roth MD [address] [place] [address] Specialty Diagnoses / Procedures Referred By Contac t Referred To Contact Cardiology Diagnoses Chronic HFrEF (heart failure with reduced ejection fraction) (HCC) Procedures Echo 2D Doppler Color Ruddy Gates MD [address] [address] Referral ID Status Reason Start Date Expiration Date Visits Re quested Visits Authorized [id number] Closed 02/16/2022 07/21/2022 1 1 Discharge Instructions [...] sent through Care Everywhere. * Abdominal Pain (Mauritanian) documented in this encounter* Discharge Instr - Lab* Maria Antonia Mcmullen RN - 09/15/2020 1:12 PM EST Your physician has ordered skilled home care services for you. Your home care will be provided by: [facility] [phone] * Additional Instructions* Marcela Smith APRN - MARIIA - 09/11/2020 Internal Cardioverter Defibrillator [place] [...] in CPR. Call the Device Clinic at [phone] if you have any questions regarding your incision, defibrillator, or follow-up appointments. Call the Device Clinic at [phone] if you have signs of a rapid heart rhythm, if you hear a beeping tone or vibration from your defibrillator. Call the Device Clinic at [phone] or your physician if you experience a [...] from the original note were not included. HICU NURSING DISCHARGE QUICK REFERENCE TOOL Discharge Date: 09/26/20 Patient Name: Megan Nascimento Support Person/ Primary Emergency Contact: Zuleyka Nascimento Diagnosis: Acute on chronic clinical systolic heart failure (HCC) [I50.23] Acute HFrEF (heart failure with reduced ejection fraction) (HCC) [I50.21] Self monitoring: Weigh yourself daily. Perform [...] your medicine. Do not take any vitamins, pohd-bne-sumiusz medicine, or herbal products without talking to [...] Where can you learn more? Go to [email or web address] and sign in to your Wakie/Budist account. Enter E597 in the Search Health Information box to learn more about Heart Failure: Care Instructions. If you do not have an account, please click on the Sign Up Now link. Current as of: July 05, 2019 Content Version: 12.6 [employer]. Care instructions adapted under license by [employer]. If you have questions about a medical condition or this instruction, always ask your healthcare professional. orderTalk, [facility] disclaims any warranty or liability for your use of this information. Activity and Exercise: Walk every day. Start with 5 minutes a day. Slowly increase to a goal (ie. 10-30 minutes a day). Remember to rest when tired. Follow Up Appointments: Please bring Photo ID, Insurance Cards, and a Current List of Medications to your appointments. Payroll Benefits Clerk: Petra DELGADO @ [address] [place] [address], [address], [place] [address] Appointment: 10/05/2020 9AM Primary Care: RIGOBERTO DURAND MD Appointment: 10/05/2020 @ 10:10 AM Address: [facility] , [address] [place] [address] 24 - 72 HR Post Discharge Call: [...] ANY QUESTIONS, CALL THE UNIT (HICU) AT [phone] documented in this encounter Hospital Course * Lisa Lindsey MD - 09/15/2020 10:56 AM EST [facility] Cardiology Service--Heart Failure Discharge Note Name: Megan Nascimento Date of : 1940 Date of Service: 09/15/20 Time of Service: 2:45 PM Date of Admission: 09/11/2020 Date of Discharge: 09/15/2020 Admitting Physician: Ruddy Gates MD Discharge Attending: Lisa Lindsey MD Primary Care Provider: RIGOBERTO DURAND MD Consultants: NA Reason for Admission DISCHARGE COORDINATOR-D placement Hospital Admission ProblemList: Patient Active Problem [...] be in ADHF with volume overload after DISCHARGE COORDINATOR-D placement - Diuresed well with lasix gtt. [...] restriction, 2gm Na diet #LBBB POD#3 s/p DISCHARGE COORDINATOR-D by Dr. Gates - Placed 09/11/20 - [...] - Follows with Dr. Anirudh Arshad with [facility] - Continue flomax - Renal u/s negative for hydronephrosis #Iron def anemia - PO iron Hospital Course Megan Nascimento is a 80 y.o. male (Patient of Dr. 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 After the procedure he was found [...] void successfully prior to leaving. Procedures: S/p DISCHARGE COORDINATOR-D implant on 09/11/[address] Gates Review [...] at Discharge: good Programs/services Recommendations following discharge- [facility] Facility/Home Care Agency: [facility] Patient Discharge Instructions Discharge Medications Megan Nascimento Home Medication Instructions APOORVA:[id number] Printed on:09/15/20 9057 Medication Information apixaban (ELIQUIS) 2.5 MG TABS [...] Time Provider Department Center 09/18/2020 9:30 AM CHLOE Gill CNP [facility] 09/21/2020 2:30 PM CHLOE Skinner NP [facility] 10/02/2020 9:00 AM [address] RN [facility] 10/24/2020 11:15 AM Ralph Roth MD [facility] 12/21/2020 3:00 PM Ruddy Gates MD [facility] Quality Indicators NYHA Functional Classification: Class II [...] by Mr. Nascimento. If any questions call [facility] Heart Failure Program Clinic or [phone] CHLOE Palma CNP [facility] Heart Failure Program [address] [place], [place] [id number] [phone] This note was generated using a voice [...] summary, Megan Nascimento 80 yo M s/p DISCHARGE COORDINATOR-D for HFrEF (LVEF 14%), LBBB, had transient [...] have some improvement in comoing weeks with DISCHARGE COORDINATOR Lisa Lindsey MD Department of Cardiovascular Disease, Division of Heart Failure [facility] 4:53 PM 09/15/20 documented in this encounter* Marcela Rosado, OFFICE RN - TUBE DRAW HELPER - 09/26/2020 9:53 AM EST Name: Megan [...] (HCC) ICD (implantable cardioverter-defibrillator), biventricular, in situ Calculus of gallbladder without cholecystitis without obstruction History of peptic ulcer disease Epigastric pain Stage 3b chronic kidney disease Acute on chronic clinical systolic heart failure (HCC) Acute HFrEF (heart failure with reduced ejection fraction) ([facility]) Procedures: HOSPITAL COURSE : Mr. Nascimento was admitted from the office to [facility] for increasing weakness, fatigue, exertional dyspneaand a wet cough. He had 3-4+ bilateral lower extremity edema up to his hips and an 8 lb weight gainsince his recent hospital discharge for elective DISCHARGE COORDINATOR-D. He was IV diuresed and transitioned back [...] Discharge Medications: Megan Nascimento Home Medication Instructions APOORVA:[id number] Printed on:09/26/20 1012 Medication Information albuterol (PROVENTIL) [...] 10/05/2020 @ 9am If any questions call [facility] office [phone] Total time spent for Discharge time greater [...] Hodgkin's lymphoma and chemotherapy that he received [id number]. He is not on Farxiga at this [...] for Visit Chief Complaint 2 WK S/P [facility] ABLA ABLA ABLA ABLA ABLA ABLA ABLA [...] 2024 10:31 am Chief [facility] 10[facility] am fall April 01, 2025 12:30pm Chief Complaint Admit [facility] 10:31 am fall April 01, 2025 12:30pm fall April 05, 2025 2:29am GENERALIZED WEAKNESS, FALL, RHABDOMYOLYS IS April 05, 2025 2:38am Reason for Visit Admit Date Congestive heart failure April 05, 2025 2:38am Diabetes April 05, 2025 2:38am Fall April 05, 2025 2:38am Generalized weakness April 05 2:38am Rhabdomyolysis April 05, 2025 2:38am Additional Source Comments Reason for Visit (unrecogniz ed section and content) Status Reason Specialty Diagnoses / Procedures Re ferred By Contact Referred To Contact Authorized Diagnoses Iron deficiency anemia, unspecified iron deficiency anemia type Iron malabsorption Ralph Roth MD [address] [place] [id number] [facility] Op Inf [address] [place] [address] Reason Comments Fatigue Abdominal Pain Reason Onset [...] CKD stage Procedures .. Moises Adan MD [address] [place] [address] Phone: tel: fax: [facility] Cardiac Progressive Care Unit PCU [address] [place] [address] Phone: tel: Referral ID Status Reason Start Date Expiration Date Visits Re quested Visits Authorized 1 1 Reason Onset Date Comments Other 02/04/2025 HFdEF Reason Comments Leg Swelling Pt coming in for BLE swelling & redness since being discharged from inpatient for CHF exacerbation about 1 week ago Specialty Diagnoses / Procedures Referred By Juan t Referred To Contact Diagnoses Cellulitis Cellulitis of lower extremity, unspecified laterality Procedures .. Moises Adan MD [address] [place] [address] Phone: tel: fax: [facility] MSU [address] [place] [address] Phone: tel: Referral ID Status Reason Start Date Expiration Date Visits Re quested Visits Authorized Reason Onset Date Comments Transitional Care Management [...] section and content) DATE CREATED AUTHOR 06/04/2021 [email or web address] DATE CREATED AUTHOR AUTHOR'S ORGANIZ ATION 03/22/2022 [facility] DATE CREATED AUTHOR AUTHOR'S ORGANIZ ATION 03/16/2025 [facility] DATE CREATED AUTHOR AUTHOR'S ORGANIZ ATION 04/13/2025 [facility] Goals (unrecognized section and content) Goals may [...] Care Teams (unrecognized sec tion and content) Inspector And Sorter Relationship Specialty Start Date End Date Rigoberto [...] MD Primary Care Provider, Attending Provider Active Inspector And Sorter Relationship Specialty Start Date End Date Gibson Roth [address] [place] [address] PCP - General 09/05/20 Inspector And Sorter Relationship Specialty Start Date End Date Rigoberto Durand MD PCP - General Family Medicine 03/11/13 Inspector And Sorter Relationship Specialty Start Date End Date Gibson Roth [address] [place] [phone] PCP - General 09/05/20 Team Status: Inactive Member Role Status Dates Dr. Rigoberto Durand MD Primary Care Provider Active Dr. Shaun Taveras DO Emergency Provider Active Inspector And Sorter Relationship Specialty Start Date End Date Gibson Roth [address] [place] [phone] PCP - General 09/05/20 Inspector And Sorter Relationship Specialty Start Date End Date Gibson Roth [address] [place] [phone] PCP - General 09/05/20 Inspector And Sorter Relationship Specialty Start Date End Date Gibson Roth [address] [place] [phone] PCP - General 09/05/20 Inspector And Sorter Relationship Specialty Start Date End Date Gibson Roth [address] [place] [phone] PCP - General 09/05/20 Inspector And Sorter Relationship Specialty Start Date [place] [address] PCP - General 09/05/20 Inspector And Sorter Relationship Specialty Start Date End Date Gibson Roth [address] [place] [phone] PCP - General 09/05/20 Inspector And Sorter Relationship Specialty Start Date End Date Gibson Roth [address] [place] [phone] PCP - General 09/05/20 Team Status: Inactive [...] December 12, 2024 End: December 12, 2024 Inspector And Sorter Relationship Specialty Start Date End Date [place], Gibson [address] [place] [phone] PCP - General 09/05/20 Inspector And Sorter Relationship Specialty Start Date End Date [place], Gibson [address] [place] [phone] PCP - General 09/05/20 Inspector And Sorter Relationship Specialty Start Date End Date BrendaGibson yi [address] [place] [phone] PCP - General 09/05/20 Jany Bonilla, JAIMIE Registered Nurse Bridge [employer] Inspector Manager 02/02/25 Inspector And Sorter Relationship Specialty Start Date End Date BrendaGibson yi [address] [place] [phone] PCP - General 09/05/20 Jany Bonilla, RN Registered Nurse [employer] Inspector Manager 02/02/25 Inspector And Sorter Relationship Specialty Start Date End Date [place] Gibson [address] [place] [phone] PCP - General 09/05/20 Jany Bonilla, RN Registered Nurse [employer] Inspector Manager 02/02/25 Inspector And Sorter Relationship Specialty Start Date End Date Brinda Bourne MD [address] [place] [address] [address] [place] [address] PCP - General Family Medicine 02/17/25 Jany Bonilla, JAIMIE Registered Nurse Bridge Construction Inspector Manager 02/02/25 Inspector And Sorter Relationship Specialty Start Date End Date Brinda Bourne MD [address] [place] [address] [address] [place] [address] PCP - General Family Medicine 02/17/25 Jany Bonilla, JAIMIE Registered Nurse Bridge Construction Inspector Manager 02/02/25 Inspector And Sorter Relationship Specialty Start Date End Date Brinda Bourne MD [address] [place] [address] [address] [place] [address] PCP - General Family Medicine 02/17/25 Jany Bonilla, RN Registered Nurse Bridge Construction Inspector Manager 02/02/25 Team Status: Active Member Role/Relationship [...] April 01, 2025 End: April 01, 2025 Team Status: Inactive Member Role/Relationship Status Dates Dr. Rigoberto Durand MD Primary Care Provider Active Start: April 01, 2025 End: April 01, 2025 Dr. Dax Romero DO Attending Provider Active Start: April 01, 2025 End: April 01, 2025 Dr. Dax Romero DO Emergency Provider Active Start: April 01, 2025 End: April 01, 2025 Team Status: Active Member Role/Relationship Status Dates Dr. Rigoberto Durand MD Primary Care Provider Active Start: April 05, 2025 Dr. Rigoberto Durand MD Attending Provider Active Start: April 05, 2025 Dr. Shaun Taveras , DO Emergency Provider Active Start: April 05, 2025 Team Status: Active Member Role/Relationship Status Dates Dr. Rigoberto Durand MD Primary Care Provider Active Start: April 05, 2025 Dr. Rigoberto Durand MD Admit Provider Active Star t: April 05, 2025 Dr. Rigoberto Durand MD Attending Provider Active Start: April 05, 2025 Dr. Shaun Taveras DO Emergency Provider Active Start: April 05, 2025 Source Comments (unrecognize d section and content) In the event this informatio n is protected by the Federal Confidentiality of Alcohol and Drug Abuse Patient Records regulations: The Federal rules restrict any use of the information to criminally investigate or prosecute any alcohol or drug abuse patient.[facility] the event this information is protected by the Federal Confidentiality of Alcohol and Drug Abuse Patient Records regulations: The Federal rules restrict any use of the information to criminally investigate or prosecute any alcohol or drug abuse patient.[facility] Scheduled Active and Recently Administ ered [...] 1000 (Given - Provider: Randy Cornelius RN) clotrimazole (Lotrimin) 1 % cream Topical, 2 times daily, First dose on Fri01/29/25 at 1430, To inguinal folds in the groin 0843 (Given - Provider: Dania Ledesma RN)2001 (Given - Provider: Charisma Kaminski, JAIMIE) 931 (Given - Provider: Aleksandra Adams RN)2020 (Given - Provider: Marshall Glez, RN) 100 (Given - Provider: Randy Cornelius, JAIMIE) cyanocobalamin (Vitamin B-12) tablet 1,000 mcg 1,000 mcg, Oral, Daily, First dose on Fri01/28/25 at 0900 0838 (Given - Provider: Dania Ledesma RN) 0930 (Given - Provider: Aleksandra Adams RN) 1000 (Given - Provider: Randy Cornelius, JAIMIE) ferrous sulfate tablet 325 mg 325 mg, Oral, Daily with breakfast, First dose on Fri01/28/25 at 0835 0837 (Given - Provider: Dania Ledesma RN) 0930 (Given - Provider: Aleksandra Adams RN) 1000 (Given - Provider: Randy Cornelius RN) furosemide (Lasix) injection 80 mg (CANCELED) 80 mg, IntraVENous, 2 times daily, First dose (after last modification) on Fri01/28/25 at 2100 0837 (Given - Provider: Dania Ledesma RN)2000 (Given - Provider: Charisma Kaminski RN) 930 (Given - Provider: Aleksandra Adams RN)2020 (Given - Provider: Marshall Glez RN) furosemide (Lasix) injection 80 mg (CANCELED) 80 mg, IntraVENous, 2 times daily, First dose (after last modification) on Fri02/01/25 at 0830 0959 (Given - Provider: Randy Cornelius, RN) gabapentin (Neurontin) capsule 100 mg 100 mg, Oral, 2 times daily, First dose on Fri01/28/25 at 0900 0837 (Given - Provider: Dania Ledesma RN)2001 (Given - Provider: Charisma Kaminski, JAIMIE) 0930 (Given - Provider: Aleksandra Adams RN)2020 (Given [...] Charisma Kaminski RN)0930 (Given - Provider: Aleksandra dAams RN)1711 (Given - Provider: Aleksandra Adams RN)2342 (Given - Provider: Marshall Glez, RN) 1000 (Given - Provider: Randy Cornelius, RN)1600 (Not Given - Provider: Randy Cornelius, JAIMIE - Reason: Patient/family refused - Comment: d/c [...] mL/hr, Administer over 2 Hours, Once, On 01/30/25 at 0730, For 1 dose, Recommended infusion [...] Dania Ledesma RN)2031 (Stopped - Provider: Charisma Kaminski, JAIIME) metoprolol succinate XL (Toprol-XL) 24 hr tablet 100 mg 100 mg, Oral, Daily, First dose on Fri01/28/25 at 0900, Do not crush or chew. 0838 (Given - Provider: Dania Ledesma RN) 0930 (Given - Provider: Aleksandra Adams, JAIMIE) 1000 (Given - Provider: Randy Cornelius, JAIMIE) pantoprazole (ProtoNix) EC tablet 40 mg 40 mg, Oral, Daily before breakfast, First dose on Fri01/29/25 at 0600, Do not crush, chew, or split. 0838 (Given - Provider: Dania Ledesma RN) 0529 (Given - Provider: Charisma Kaminski, JAIMIE) 0534 (Given - Provider: Marshall Glez RN) [...] mEq (COMPLETED) 40 mEq, Oral, Once, On Fri01/31/25 at 1400, For 1 dose, May give [...] chew. 1442 (Given - Provider: Aleksandra Adams, RN) sacubitril-valsartan (Entresto) 24-26 MG per tablet 1 tablet 1 tablet, Oral, 2 times daily, First dose on Fri01/28/25 at 0900, Contraindicated in combination with ROLO inhibitors. Ensure a minimum of 36 hours between any ROLO inhibitor dose and sacubitril-valsartan. 0924 (Given - Provider: Dania Ledesma, JAIMIE)2000 (Given - Provider: Charisma Kaminski, JAIMIE) 09 (Given - Provider: Aleksandra Adams, RN)2020 (Given - Provider: Marshall Glez RN) 1003 (Given - Provider: Randy Cornelius, JAIMIE) sertraline (Zoloft) tablet 25 mg 25 mg, Oral, Daily, First dose on Fri01/28/25 at 0900 0838 (Given - Provider: Dania Ledesma RN) 0930 (Given - Provider: Aleksandra Adams, JAIMIE) 1001 (Given - Provider: Randy Cornelius, JAIMIE) [...] Dania Ledesma RN)1638 (Given - Provider: Dania Ledesma, JAIMIE) 0529 (Given - Provider: Charisma Kaminski, JAIMIE)1711 (Given - Provider: Aleksandra Adams, JAIMIE) 1000 (Given - Provider: Randy Cornelius, JAIMIE - Comment: group meds with care)1755 (Not Given - Provider: Randy Cornelius, JAIMIE - Reason: Other - Comment: pt d/c home want to wait and take at home before dinner) tamsulosin (Flomax) 24 hr capsule 0.4 mg 0.4 mg, Oral, Daily, First dose on Fri01/28/25 at 0900, Do not crush, chew, or split. 0837 (Given - Provider: Dania Ledesma RN) 0931 (Given - Provider: Aleksandra Adams, RN) 1000 (Given - Provider: Randy Cornelius, RN) therapeutic multivitamin-minerals (Theragran-M) tablet 1 tablet, Oral, Daily, First dose on Fri01/28/25 at 0900 0837 (Given - Provider: Dania Ledesma RN) 0930 (Given - Provider: Aleksandra Adams, RN) 1000 (Given - Provider: Randy Cornelius, RN) torsemide (Demadex) tablet 40 mg 40 [...] 01/29/25 at 1610, After each loose stool perflutren protein A microsphere (Optison) 3 mL in sodium chloride (PF) 0.9 % 10 mL IV (COMPLETED) 0-10 mL, IntraVENous, IMG once PRN, other, Suboptimal echo image, Starting on 01/31/25 at 1153, For 1 dose, CV Procedural [...] Amelia Adams RN) 0833 (Given - Provider: iMcah Devries RN) 0935 (Given - Provider: Micah Devries RN) cyanocobalamin (Vitamin B-12) tablet 1,000 mcg 1,000 mcg, Oral, Daily, First dose on Fri02/10/25 at 0900 0909 (Given - Provider: Amelia Adams RN) 0833 (Given - Provider: Micah Devries RN) 0939 (Given - Provider: Micah Devries, JAIMIE) enoxaparin (Lovenox) syringe 40 mg 40 mg, [...] Amelia Adams RN)210 (Given - Provider: Shawna Montalvo, JAIMIE) 08 (Given - Provider: Micah Devries RN)2041 (Given - Provider: Geri Parson RN) 0937 (Given - Provider: Micah Devries RN) glipiZIDE (Glucotrol) tablet 2.5 mg 2.5 mg, Oral, Daily before breakfast, First dose on Fri02/10/25 at 0700, Substituted for glimepiride (Amaryl). 0534 (Given - Provider: Irene Abraham RN) 0606 (Given - Provider: Shawna Montalvo, JAIMIE) 0624 (Given - Provider: Geri Parson RN) Insulin Lispro (Humalog) injection 0-12 Units(Linked Group [...] 25 mcg, Oral, Daily, First dose on Tracy 02/10/25 at 0900, Tube feeding (TF) interaction, obtain [...] First dose on Tracy 02/10/25 at 0700, Do not crush, chew, or split. 0531 (Given - Provider: Irene Abraham RN) 0607 (Given - Provider: Shawna Montalvo RN) 0624 (Given - Provider: Geri Parson, JAIMIE) rosuvastatin (Crestor) tablet 20 mg 20 mg, Oral, Daily, First dose on Fri02/10/25 at 0900 0909 (Given - Provider: Amelia Adams RN) 0833 (Given - Provider: Micah Devries RN) 0937 (Given - Provider: Micah Devries RN) sacubitril-valsartan (Entresto) 24-26 MG per tablet 1 tablet 1 tablet, Oral, 2 times daily, First dose on Tracy 02/10/25 at 0900, Contraindicated in combination with ROLO inhibitors. Ensure a minimum of 36 hours between any ROLO inhibitor dose and sacubitril-valsartan. 0909 (Given - Provider: Amelia Adams RN)2105 (Given - Provider: Shawna Montalvo RN) 0833 (Given - Provider: Micah Devries RN)2041 (Given - Provider: Geri Parson RN) 0935 (Given - Provider: Micah Devries [...] minutes apart). 0531 (Given - Provider: Irene Abraham RN)1601 (Given - Provider: Amelia Adams RN) 0606 (Given - Provider: Shawna Montalvo RN)1542 (Given - Provider: Micah Devries RN) 0624 (Given - Provider: Geri Parson RN)1600 (Canceled Entry - Provider: Automatic Discharge Provider - Comment: Automatically canceled at discontinue of medication order) tamsulosin (Flomax) 24 hr capsule 0.4 mg 0.4 mg, Oral, Daily, First dose on Fri02/10/25 at 0900, Do not crush, chew, or [...] 0833 (Given - Provider: Micah Devries RN) 0814 (Held by provider - Provider: Lisa Muniz DO - Reason: Fluid imbalance)0900 (Dose Auto Held - Provider: Lisa Muniz DO)1824 (Unheld by provider - Provider: Automatic Discharge Provider) PRN Medication Order 02/13/2025 02/14/2025 02/15/2025 acetaminophen (Tylenol) suppository 650 mg(Linked Group 2) 650 mg, Rectal, Every 6 hours PRN, fever, For temp greater than 100.4 F (38 C), Starting on Fri02/10/25 at 0621, Administer if oral route cannot [...] Blood sugar less than 70mg/dL, Starting on Fri02/10/25 at 0621, Start infusion following administration of [...] PRN, sleep, Starting on Fri02/11/25 at 2124 2041 (Given - Provider: Geri Parson, JAIMIE) ondansetron (Zofran) injection 4 mg(Linked Group 4) 4 mg, IntraVENous, Every 6 hours PRN, nausea, vomiting, Starting on Tracy 02/10/25 at 0621, 1st Line. Give IV if patient is unable to take orally. If inadequate response within 60 minutes, proceed to next-line agent or contact provider if no further options ordered. 0943 (See Alternative - Provider: Micah Devries RN) ondansetron ODT (Zofran-ODT) disintegrating tablet 4 mg(Linked [...] before administering. 0943 (Given - Provider: Micah Devries RN) potassium chloride (Klor-Con) packet 40 mEq(Linked Group [...] BE BASED ON THE PRIMARY CLINICAL RECORDS. [email or web address] provides no warranty or guarantee of the accuracy or completeness of information in this document.
--- NOTE | 2025-04-13 04:18 | CT_ITS ---
PROCEDURE: SPINE CERVICAL WITHOUT CONTRAS 04/13/2025 REASON FOR EXAM: NECK PAIN. TECHNIQUE: Procedure Code: CTS Modality: CT Procedure: SPINE CERVICAL WITHOUT CONTRAS Coronal and Sagittal reconstruction series were provided. One or more dose reduction techniques were used (e.g., Automated exposure control, adjustment of the mA and/or kV according to patient size, use of iterative reconstruction technique. RADIATION DOSE SUMMARY: CTDlvol: 29.38 mGy DLP: 613 mGycm COMPARISON: CT scan on 04/01/2025. FINDINGS: Moderate osteopenia. Grade 1 retrolisthesis of C3 on C4. Grade 1 anterolisthesis of C7 on T1. Moderate diffuse spondylosis. Multilevel degenerative disc disease. There are diffuse spondylotic changes. Findings are demonstrated to by diffuse disc space narrowing, osteophyte formation and degenerative endplate sclerosis. There is diffuse facet joint arthropathy with secondary bilateral neural foramina narrowing. No fracture or dislocation is seen. No aggressive lytic or blastic bony lesion is noted. Mild bilateral pleural effusions. Passive atelectatic airspace disease of the lungs. CT/Spine Cervical without Contras IMPRESSION: No CT evidence of an acute abnormality. Reading Location[facility]
--- NOTE | 2025-04-13 04:18 | CT_ITS ---
PROCEDURE: SINUS/FACIAL BONE 04/13/2025 REASON FOR EXAM: FALL, FACIAL TRAUMA RIGHT MAXILLARY TTP TECHNIQUE: Procedure Code: CTSI Modality: CT Procedure: SINUS/FACIAL BONE Coronal and Sagittal reconstruction series were provided. One or more dose reduction techniques were used (e.g., Automated exposure control, adjustment of the mA and/or kV according to patient size, use of iterative reconstruction technique). RADIATION DOSE SUMMARY: CTDlvol: 29.38 mGy DLP: 613 mGycm COMPARISON: None. FINDINGS: Right preseptal/anterior facial soft tissue hematoma. Secretions in the right maxillary sinus. Chronic deformity of the right nasal bone. Normal bilateral orbital contents. Normal bilateral medial and inferior orbital pool. Normal bilateral maxillary bones. Normal bilateral frontozygomatic arches. Normal bilateral zygomatic temporal arches. Normal nasal bones. Normal anterior nasal spine. There is no demonstrated fracture. Normal visualized frontal, ethmoidal and sphenoid sinuses. CT/Sinus/Facial Bone IMPRESSION: Right preseptal/anterior facial soft tissue hematoma extending to the right tee ek. No associated acute fracture. Reading Location: [facility] [address]
--- NOTE | 2025-04-13 04:18 | CT_ITS ---
PROCEDURE: BRAIN/HEAD WITHOUT CONTRAST 04/13/2025 REASON FOR EXAM: FALL, HEAD TRAUMA TECHNIQUE: Procedure Code: CTBR Modality: CT Procedure: BRAIN/HEAD WITHOUT CONTRAST Coronal and Sagittal reconstruction series were provided. One or more dose reduction techniques were used (e.g., Automated exposure control, adjustment of the mA and/or kV according to patient size, use of iterative reconstruction technique. RADIATION DOSE SUMMARY: CTDlvol: 29.38 mGy DLP: 1953 mGycm COMPARISON: 04/01/2025. FINDINGS: Right anterior facial soft tissue hematoma/contusion. Secretions in the right maxillary sinus. Mild diffuse cortical atrophy, commensurate with the patient's age. Scattered hypodense foci in the periventricular and subcortical white matter suggestive of chronic ischemic white matter disease. Normal size of the ventricles and extra-axial spaces for the patient's age. Normal basal ganglia and thalami. Normal brainstem. Normal cerebellum. There is no demonstrated extra-axial, intraparenchymal, or intraventricular hemorrhage. There are no findings of an acute ischemic infarction. Normal calvarium. There is no demonstrated fracture. CT/Brain/Head without Contrast IMPRESSION: No CT evidence for acute brain abnormality. Reading Location: [facility]
--- NOTE | 2025-04-13 04:40 | RAD_ITS ---
PROCEDURE: SHOULDER MIN 2 VIEWS 04/13/2025 REASON FOR EXAM: RIGHT SHOULDER PAIN TECHNIQUE: Procedure Code: RADSH Modality: DX Procedure: SHOULDER MIN 2 VIEWS Laterality: Right COMPARISON: None. FINDINGS: Elevation of the humeral head which is probably secondary to chronic rotator cuff tendons tear/muscular atrophy. Mild osteopenia of the visualized bones. Degenerative joint disease. No fracture or dislocation is seen. No lytic or blastic bone lesion is noted. RAD/Shoulder min 2 Views IMPRESSION: No radiographic evidence for acute abnormality. Reading Location: [facility] [address]
[2025-04-13 05:52] VITALS: BP 108/67; PULSE 61; RESP 16; TEMP 36.6; O2SAT 95
[2025-04-13 05:54] VITALS: PULSE 64; RESP 16; O2SAT 98
== END 2025-04-13 06:07 | disposition home or self-care (01) ==
PROVIDERS: Emergency Provider Emergency Medicine; PCP Family Medicine; Visit Provider Emergency Medicine
DX: S00.83XA Contusion of other part of head, initial encounter (principal); E11.22 Type 2 diabetes mellitus with diabetic chronic kidney disease; E11.42 Type 2 diabetes mellitus with diabetic polyneuropathy; W19.XXXA Unspecified fall, initial encounter; S40.011A Contusion of right shoulder, initial encounter; S61.411A Laceration without foreign body of right hand, initial encounter; E03.9 Hypothyroidism, unspecified; Z95.0 Presence of cardiac pacemaker; Z86.711 Personal history of pulmonary embolism; N40.0 Benign prostatic hyperplasia without lower urinary tract symptoms
CPT/HCPCS: 70450; 70486; 72125; 73030; 82962; 99282

== ENCOUNTER 2025-05-05 01:14 | Emergency (ER) | payer OTHER, SELFPAY ==
[2025-05-05] VITALS (8 sets, daily range): BP systolic 97–128; BP diastolic 49–62; PULSE 60–74; RESP 15–26; TEMP 36.1–36.8; O2SAT 85–93; BMI 31.9
--- NOTE | 2025-05-05 01:33 | EX.ED.DYSGE1 ---
HPI History of Present Illness Chief Complaint: Unresponsive Narrative Narrative: Patient is a 84-year-old male with past medical history of BPV, heart failure, pulmonary embolism, chronic kidney disease, diabetes who presented to the emergency department via EMS with concern that family wants his defibrillator shut off. According to family they were trying to enroll him in hospice and they had an appointment tomorrow however they feel that he is actively dying tonight as he is making gurgling sounds and would like his defibrillator shut off. They state that they want to use to keep him comfortable and let him peacefully they do not want any CPR as they note the last few months have been very rough for him. [facility] Medical History Hypothyroidism Chronic pain of toe of left foot Displaced fracture of proximal phalanx of left lesser toe(s), initial encounter for closed fracture Diabetes MIAU (minor aphthous ulceration) Hiatal hernia CKD (chronic kidney disease), stage IV Pulmonary embolism HFrEF (heart failure with reduced ejection fraction) Blood transfusion during current hospitalisation Anticoagulant-induced bleeding GI bleed Benign positional vertigo Home Medications ?Medication ?Instructions ?Recorded ?Last Taken ?Type levothyroxine 75 mcg tablet 75 mcg PO DAILY thyroid 06/28/21 Unknown History mecobalamin (vitamin B12) 1,000 1,000 mcg PO DAILY anemia 06/28/21 Unknown History mcg chewable tablet (B12 Active) ysbgdfwzzvex-qlr-mapee acid-vit 1 tab PO DAILY not on pcp med list 06/28/21 Unknown History K-lycop 400 mcg-20 mcg-370 mcg tablet (Men's 50 Plus Multivitamin) tamsulosin 0.4 mg capsule 0.4 mg PO DAILY . 06/28/21 Unknown History pantoprazole 40 mg tablet,delayed 40 mg PO BID #120 tabs 09/21/21 Unknown Rx release gabapentin 400 mg capsule 400 mg PO TID per md office list 11/27/23 Unknown History ferrous sulfate 325 mg (65 mg 325 mg PO QODAY #30 tabs 04/07/25 Unknown Rx iron) tablet sacubitril 24 mg-valsartan 26 mg 0.5 tab PO BID #0 tabs 04/07/25 Unknown Rx tablet sertraline 50 mg tablet 50 mg PO DAILY #0 tabs 04/07/25 Unknown Rx spironolactone 25 mg tablet 12.5 mg (1/2 x 25 mg) PO DAILY #0 04/07/25 Unknown Rx tabs acetaminophen 500 mg tablet 1,000 mg (2 x 500 mg) PO Q6H PRN 04/19/25 Unknown Rx PRN Pain Score 1-3 #0 tabs furosemide 40 mg tablet 40 mg PO BIDLX 30 days #60 tabs 04/19/25 Unknown Rx metoprolol succinate 50 mg 50 mg PO DAILY 30 days #30 tabs 04/19/25 Unknown Rx tablet,extended release 24 hr tramadol 50 mg tablet 50 mg PO Q6H PRN PRN Pain Score 04/19/25 Unknown Rx 4-10 Or Pre Pt/Ot 7 days #28 tabs Allergy/AdvReac Type Severity Reaction Status Date / Time No Known Allergies Allergy Verified 05/05/25 01:15 Family History Other Cancer Hypertension Surgical History History of permanent cardiac pacemaker placement Social History household members: none and other details: Ex lives next door, she has back door entrance into his house. Smoking Status: Never smoker alcohol intake: never substance use type: does not use ROS ROS ED ROS Narrative Review of systems is unobtainable from the patient secondary to his altered mental status therefore acute care caveat applies EXAM Physical Exam Narrative Exam Narrative: General: Patient lying in bed resting comfortably Head: Atraumatic Eyes: PERRL bilaterally, EOMI bilaterally Neck: Soft trachea midline Cardiovascular: Regular rate Respiratory: Clear to auscultation bilaterally Neurological: Patient is minimally responsive Skin: Patient has ecchymosis over the right side of his face family states that is from a fall Const Vital Signs: 05/05/25 01:14 05/05/25 01:21 05/05/25 01:30 Temperature 98.3 F Temperature Source Axillary Pulse Rate 74 66 Respiratory Rate 26 H 19 H Respiratory Effort Labored Respiratory Pattern Tachypnea Blood Pressure 128/62 H 119/59 L Blood Pressure Mean 84 78 Pulse Ox 88 90 Oxygen Delivery Method Nasal Cannula Nasal Cannula Oxygen Flow Rate (L/min) 5 4 05/05/25 02:14 05/05/25 02:30 05/05/25 03:00 Temperature Temperature Source Pulse Rate 64 60 61 Respiratory Rate 23 H 15 19 H Respiratory Effort Respiratory Pattern Blood Pressure 106/56 L 97/49 L 104/51 L Blood Pressure Mean 72 65 68 Pulse Ox 85 93 93 Oxygen Delivery Method Nasal Cannula Nasal Cannula Nasal Cannula Oxygen Flow Rate (L/min) 4 3 3 05/05/25 03:30 Temperature Temperature Source Pulse Rate 61 Respiratory Rate 18 Respiratory Effort Respiratory Pattern Blood Pressure 103/56 L Blood Pressure Mean 71 Pulse Ox 93 Oxygen Delivery Method Nasal Cannula Oxygen Flow Rate (L/min) 3 MDM MDM MDM Narrative Medical decision making narrative: Patient is a 84-year-old male who presented to the emergency department with the request of having his defibrillator shut off by family and keeping him comfortable as they want him enrolled in hospice. On the differential diagnose includes but not limited to actively dying, intracranial hemorrhage. We did not have a comfort care form on record here therefore I discussed with the patient's daughter at bedside who is the POA about the options of CODE STATUS and she would like to sign a DNR comfort care form which was done here in the emergency department. Magnet was placed over his defibrillator. Patient will be given IV morphine and Ativan as well as Zofran. Hospice came and evaluated the patient bedside and they will have home health hospice this morning. Patient will be taken back to his home where home hospice will take over. Family is agreeable this plan all question concerns answered. Discharge Plan Triage Chief Complaint: Unresponsive ED Provider: Dax Romero Dx/Rx/DC Orders Clinical Impression: Congestive heart failure, Diabetes, Fefuv-fh-risvbcp kidney injury, Essential (primary) hypertension, Encounter for medical screening examination Prescriptions: No Action pantoprazole 40 mg tablet,delayed release (DR/EC) 40 mg PO BID Qty: 120 3RF levothyroxine 75 mcg Tablet 75 mcg PO DAILY tamsulosin 0.4 mg Capsule 0.4 mg PO DAILY Men's 50 Plus Multivitamin 400-20-370 mcg Tablet 1 tab PO DAILY mecobalamin (vitamin B12) [B12 Active] 1,000 mcg Tablet,Chewable 1,000 mcg PO DAILY furosemide 40 mg Tablet 40 mg PO BIDLX 30 Days Qty: 60 0RF metoprolol succinate 50 mg Tablet Extended Release 24 Hr 50 mg PO DAILY 30 Days Qty: 30 0RF tramadol 50 mg Tablet 50 mg PO Q6H PRN PRN (Reason: Pain Score 4-10 Or Pre Pt/Ot) 7 Days Qty: 28 0RF acetaminophen 500 mg Tablet 1,000 mg PO Q6H PRN PRN (Reason: Pain Score 1-3) Qty: 0 0RF gabapentin 400 mg capsule 400 mg PO TID spironolactone 25 mg Tablet 12.5 mg PO DAILY Qty: 0 0RF Rx Instructions: Hold for serum potassium more than 5.0 sertraline 50 mg Tablet 50 mg PO DAILY Qty: 0 0RF sacubitril-valsartan 24-26 mg Tablet 0.5 tab PO BID Qty: 0 0RF Rx Instructions: Hold for SBP less than 110 mmHg ferrous sulfate 325 mg (65 mg iron) tablet 325 mg PO QODAY Qty: 30 0RF Primary Care Provider: Joseph Durand Referrals: Joseph Durand MD [Primary Care Provider, Family Practice] Print Language: Romanian Disposition Disposition: Home, Self Care
--- OUTSIDE RECORDS SUMMARY | 2025-05-05 01:41 | XMS RPT_ITS | CCD ---
Author Organization [facility] Care Team Providers Care Claims Collector Name Role Phone Rigoberto Durand Primary Care Provider [phone] Rigoberto Durand Primary Care Provider Dr. Rigoberto Durand Referring Provider Dr. Saud Merida Attending Provider [phone] Enrico Davenport Emergency Provider Dr. Mauro [...] Attending Provider Dr. Raphael Quispe Attending Provider Gibson Roth Primary Care Provider Ladarius BRYANT, Rigoberto Klein Primary Care Provider Gibson Roth Primary Care Provider Ladarius BRYANT, Dr. Ruiz Primary Care Provider Ladarius BRYANT, Dr. Ruiz Attending Provider Dr. Harvinder George DO Emergency Provider Chad RN, Jany Bourne MD, Brinda Klein Primary Care Provider Chad RN, Jany Durand MD, Dr. Ruiz Primary Care Provider Dr. Harvinder George DO Attending Provider Nick MULLINS, Dr. Verduzco Emergency Provider Dr. Dax Romero DO Attending Provider Ladarius BRYANT, Dr. Ruiz Attending Provider Dr. Shaun Taveras DO Emergency Provider Ladarius BRYANT, Dr. Ruiz Admit Provider Ladarius BRYANT, Dr. Ruiz Primary Care Physician Nick MULLINS, Dr. Verduzco Attending Physician Dr. Dax Romero DO Emergency Department Physic dominga Dr. Rigoberto Durand MD Attending Physician Dr. Shaun Taveras DO Emergency Department Physic dominga Ladarius BRYANT, Dr. Ruiz Admitting Physician Ladarius BRYANT, Dr. Ruiz Nurse Practitioner Mamadou BRYANT, Dr. Stanley Attending Physician Talisha BRYANT, Dr. Tomlinson Nurse Practitioner Cuong BRYANT, Dr. Santana Attending Physician Mamadou BRYANT, Dr. Stanley Nurse Practitioner Josh BRYANT, Dr. Lv Lucia Admitting Physician Josh BRYANT, Dr. Lv Lucia Attending Physician Josh BRYANT, Dr. Lv Lucia Referring Provider Dr. Kian Simons DO Emergency Department Physi sarah Dr. Kian Simons DO Attending Physician Durand, Rigoberto Primary Care Unavailable Dax Romero Attending Unavailable Durand, Rigoberto Primary Care Unavailable Josh, Lv Chi Attending Unavailable Josh, Lv Chi Referring Unavailable Durand, Rigoberto Primary Care Unavailable Durand, Rigoberto Attending Unavailable Durand, Rigoberto Primary Care Unavailable Kian Simons Attending Unavailable Mamadou, Jaden Attending Unavailable Durand, Rigoberto Consulting Unavailable Durand, Rigoberto Admitting Unavailable Durand, Rigoberto Primary Care Unavailable Talisha, Jayaprakas Consulting Unavailable Durand, Rigoberto Primary Care Unavailable Josh, Lv Chi Admitting Unavailable Josh, Lv Chi Attending Unavailable Josh, Lv Chi Referring Unavailable Durand, Rigoberto Primary Care Unavailable Harvinder George Attending Unavailable Durand, Rigoberto Primary Care Unavailable Esther Hutchins Attending Unavailable Durand, Rigoberto Consulting Unavailable Mamadou, Jaden Attending Unavailable Durand, Rigoberto Admitting Unavailable Durand, Rigoberto Primary Care Unavailable Talisha, Jayaprakas Consulting Unavailable Mamadou, Jaden Consulting Unavailable Durand, Rigoberto Attending Unavailable Durand, Rigoberto Primary Care Unavailable BRENDA, GIBSON Primary Care Unavailable LISA MUNIZ Attending Unavailable LISA MUNIZ Admitting Unavailable BRENDA, GIBSON Primary Care Unavailable ELIAN, MOISES Admitting Unavailable DEE JONES Attending Unavailable PETRA RENTERIA Attending Unavailable BRINDA BOURNE Primary Care Unavailable BRINDA BOURNE Primary Care Unavailable BRENDA, GIBSON Primary Care Unavailable RALPH ROTH Attending Unavailable BRENDA, GIBSON Primary Care Unavailable BRENDA, GIBSON Primary Care Unavailable BRENDA, GIBSON Primary Care Unavailable BRENDA, GIBSON Primary Care Unavailable RALPH ROTH Attending Unavailable Allergies Allergy Classification Reported Allergen(s) Allergy Type Date of Onset Reaction(s) Facility (9 sources) Seasonal allergy Propensity to adverse reactions to substance 10-24-2015 [place] (20 sources) Other Propensity to adverse reactions 10-24-2015 [employer] (20 sources) atorvastatin Drug Allergy 09-12-2015 [employer] (20 sources) latanoprost Drug Allergy 05-29-2015 [employer] (20 sources) Lovastatin Propensity to adverse reactions 11-25-2012 [employer] Medications Current Medications Medication Drug Class(es) Dates Sig (Normalized) Sig (Original) acetaminophen 500 mg oral tablet (13 sources) Start: 04-19-2025 take 2 tablets by mouth every six hours as needed for pain Start: 04-19-2025 take 2 tablets by mo uth every six hours as needed for pain Start: 02-10-2025 End: 02-15-2025 take 1 tablet by mouth every six hours as needed for pain and fever acetaminophen (Tylenol) tablet 650 mg Start: 12-02-2023 End: 04-19-2025 Acetaminophen 325 mg Tablet Discontinued 650 mg PO EVERY 6 HOURS NEEDED as needed for Pain 1-10 Or Fever >100.7 0 0 December 02, 2023 12:00am April 19, 2025 5:04pm Start: 09-24-2020 acetaminophen (TYLENOL) tablet 650 mg Start: 09-12-2020 acetaminophen (TYLENOL) tablet 650 mg albuterol 0.83 mg/ml inhalant solution (2 sources) beta2-Adrenergic Agonist Start: 09-22-2020 albut ana (PROVENTIL) nebulizer solution 1.25 mg Start: 08-15-2020 [...] Start: 09-26-2020 take 1 capsule by mo [facility] once daily Coenzyme Q10 (COQ-10) 30 MG CAPS Take 1 capsule by mouth daily 30 capsule 0 09/26/2020 Active ferrous sulfate 325 mg oral tablet (20 sources) Start: 04-07-2025 take 1 tablet by jm every other day Start: 07-01-2021 End: 04-07-2025 take 1 tablet by mouth once daily Ferrous Sulfate 325 mg (65 mg iron) tablet Discontinued 325 mg PO DAILY 30 0 July 01, 2021 1:00am April 07, 2025 1:22pm Start: 06-28-2020 ferrous sulfat e (IRON 325) tablet 325 mg furosemide 40 mg oral tablet (20 sources) Loop Diuretic Start: 05-02-2025 End: 05-02-2026 take 1 tablet by mouth once daily furosemide (Lasix) 40 MG tablet Indications: Acute HFrEF (heart failure with reduced ejection fraction) ([facility]) Take 1 tablet (40 mg) by mouth daily. 30 tablet 11 05/02/2025 05/02/2026 Active Start: 04-19-2025 take 1 tablet by jm twice daily Start: 04-19-2025 take 1 tablet by jm twice daily Start: 04-07-2025 End: 04-19-2025 take 1 tablet by mouth twice daily Furosemide 40 mg Tablet Discontinued 40 mg PO TWICE DAILY 0 0 April 07, 2025 12:00am April 19, 2025 5:04pm Start: 01-28-2025 End: 02-01-2025 80 mg, IntraVENous, [...] twice daily 80 mg, Oral, 2 TIMES D AILY, First dose on Fri09/11/20 at 1800 iopamidol (ISOVUE-370) 76 % injection 75 mL (1 source) Start: 09-05-2020 iopamidol (ISOVUE-370) 76 % injection 75 mL mecobalamin 1 mg chewable tablet (16 sources) Start: 06-28-2021 24 hr metoprolol succinate 50 mg extended release oral tablet (20 sources) beta-Adrenergic Jody Start: 04-19-2025 take 1 tablet by mouth once daily Start: 04-19-2025 take 1 tablet by jm th once daily Start: 08-21-2015 take 1 tablet by jm th every twenty-four hours in the morning metoprolol succinate XL (Toprol-XL) 100 MG 24 hr tablet Take 100 mg by mouth in the morning. 08/21/2015 Active Start: 03-23-2008 End: 04-19-2025 take 1 tablet by mouth once daily Metoprolol Succinate 100 mg Tablet Extended Release 24 Hr Discontinued 100 mg PO DAILY June 28, 2021 1:00am April 19, 2025 5:05pm heart Comment on above: Take one(1) tablet d aily. Multiple Vitamin (multivitamin) tablet (20 sources) take [...] PO) Take by mouth daily 0 Active Hhdokabd-Eys-Scole-Vit K-Lycop (Men's 50 Plus Multivitamin) 400-20-370 mcg Tablet (16 sources) Start: 06-28-2021 take 50-400 tablets by mouth once daily Gdoexwqc-Pbr-Bcnza-Vit K-Lycop (Men's 50 Plus Multivitamin) 400-20-370 mcg Tablet Active 1 TABLET PO DAILY June 28, 2021 2:13pm Start: 06-28-2021 take 50-400 tablets by mouth once daily Start: 06-28-2021 take 50-400 tablets by mouth once daily Oieebbbg-Ypr-Skqda-Vit K-Lycop (Men's 50 Plus Multivitamin) 400-20-370 mcg Tablet Active 1 {tbl} PO DAILY June 28, 2021 1:00am not on pcp med list Start: 06-28-2021 take 50-400 tablets by mouth once daily Zdyxzmiw-Lmi-Jmuoc-Vit K-Lycop (Men's 50 Plus Multivitamin) 400-20-370 mcg Tablet Active 1 {tbl} PO DAILY June 28, 2021 1:00am Start: 06-28-2021 take 50-400 tablets by mouth once daily Xflsgeru-Oxf-Bddkr-Vit K-Lycop (Men's 50 Plus Multivitamin) 400-20-370 mcg Tablet Active 1 TABLET PO DAILY June 28, 2021 12:00am Start: 06-28-2021 take 50-400 tablets by mouth once daily Aakrmfxm-Ifd-Ccqrj-Vit K-Lycop (Men's 50 Plus Multivitamin) 400-20-370 mcg Tablet Active 1 TABLET PO DAILY June 28, 2021 1:00am pantoprazole 40 mg delayed release oral tablet (20 sources) Proton Pump Inhibitor Start: 08-22-2021 End: 09-21-2021 take 1 tablet by mouth twice daily Pantoprazole (Protonix) 40 mg tablet,delayed release (DR/EC) Discontinued 40 mg PO TWICE A DAY 60 0 September 21, 2021 11:42am September 21, 2021 11:44am Start: 02-03-2017 End: 03-03-2025 take 1 tablet by mouth once daily before breakfast pantoprazole (ProtoNix) 40 MG EC tablet Take 1 tablet (40 mg) by mouth every morning (before breakfast). Do not crush, chew, or split. 90 tablet 3 03/03/2025 Active Start: 03-18-2013 take 1 dose by mouth once daily before breakfast pantoprazole 40 mg GrPS Take 1 Packet by mouth daily before breakfast. 0 03/18/2013 Active Comment on above: Take 1 Packet by jm th daily before breakfast. rosuvastatin calcium 20 mg oral tablet (20 sources) HMG-CoA Reductase Inhibitor Start: End: take 1 tablet by mouth once daily rosuvastatin (Crestor) 20 MG tablet Take 1 tablet (20 mg) by mouth daily. 90 tablet 3 03/03/2025 Active End: 03-12-2023 take 1 tablet by mouth in the morning rosuvastatin (Crestor) 5 MG tablet Take 5 mg by mouth in the morning. 0 03/12/2023 Discontinued (Ineffective) sacubitril 24 mg / valsartan 26 mg oral tablet (20 sources) Angiotensin 2 Receptor Jody Start: 11-27-2023 End: 04-07-2025 Start: 11-27-2023 Sacubitril-Erika sartan (Entresto) 24-26 mg tablet Active 1 {tbl} PO TWICE A DAY November 27, 2023 12:00am per pcp med list On Hold: Hold for at least 1 week. GABI on CKD. source is from pcp office Start: 06-05-2022 End: 03-03-2025 take 1 tablet by mouth in the morning sacubitril-valsartan (Entresto) 24-26 MG tablet Indications: Acute HFrEF (heart failure with reduced ejection fraction) (HCC) Take 1 tablet by mouth in the morning and 1 tablet before bedtime. 180 tablet 1 03/11/2025 4:17 PM EDT 03/03/2025 Active Start: 02-26-2022 take 1 tablet [...] chloride infusi on spironolactone 25 mg oral ta blet (20 sources) Aldosterone Antagonist Start: 04-07-2025 Start: 06-28-2021 End: 01-09-2024 take 1 tablet by mouth once daily Spironolactone 25 mg Tablet Discontinued 25 mg PO DAILY June 28, 2021 1:00am December 02, 2023 1:30pm not on pcp [...] by mouth in the morning. 02/01/2025 Discontinued traMADol hydrochloride 50 mg oral tablet (2 sources) Opioid Agonist Start: 04-19-2025 take 1 tablet by mouth every six hours as needed for pain Start: 04-19-2025 take 1 tablet by mouth every s ix hours as needed for pain vitamin b12 1 mg oral tablet (20 [...] / HYDROcodone bitartrate 5 mg oral tablet (6 sources) Opioid Agonist Start: 12-12-2024 End: 04-05-2025 Hydrocodone-Acetami nophen 5-325 mg tablet Discontinued 1 {tbl} PO EVERY 6 HOURS NEEDED as needed for Pain 8 2 December 12, 2024 April 05, 2025 12:01am Diverticulitis amLODIPine 10 mg / benazepril hydrochloride 40 mg oral capsule (2 sources) Dihydropyridine Calcium Channel Jody, Angiotensin Converting Enzyme Inhibitor Start: 03-23-2008 amlodipine besylate/benazepril (LOTREL 10 MG-40 MG CAP) Take one(1) tablet daily. 0 03/23/2008 Active Comment on above: Take one(1) tablet d aily. amoxicillin 875 mg / clavulanate 125 mg oral tablet (15 sources) Penicillin-class Antibacterial Start: 12-12-2024 End: 04-05-2025 [...] Comment on above: Take 1 tablet by [facility] once daily. ascorbic acid 100 mg / [...] First dose on [place] 02/10/25 at 0900 Start: 01-28-2025 End: 02-01-2025 take [...] PO) Take by mouth daily 0 Active colestipol hydrochloride 1000 mg oral tablet (15 sources) Bile Acid Sequestrant Start: 11-19-2021 End: 04-06-2025 Colestipol 1 gram tablet Discontinued 0.5 g PO .every other day 30 30 1 November 19, 2021 12:00am April 06, 2025 10:40am Start: 11-19-2021 take 0.5 g by mouth every other day Colestipol Active 0.5 GM PO .every other day November 19, 2021 12:00am COMPOUNDED PRESCRIPTION (2 sources) Start: 11-10-2008 COMPOUNDED PRESCRIPTION Resveratrol Antioxidant Support Take one(1) tablet daily. 0 11/10/2008 Active Comment on above: Resveratrol Antioxid ant Support Take one(1) tablet daily. doxycycline hyclate 100 mg oral tablet (8 sources) Tetracycline-class Drug Start: 04-05-2025 End: 04-07-2025 take 1 tablet by mouth twice daily Doxycycline Hyclate 100 mg tablet Discontinued 100 mg PO TWICE A DAY April 05, 2025 12:00am April 07, 2025 1:20pm Cellulitis Start: 12-02-2023 take 1 capsule by [facility] twice daily Doxycycline Monohydrate 100 mg Capsule Active 100 mg PO TWICE A DAY 10 5 0 December 02, 2023 12:00am 0.4 ml enoxaparin sodium 100 mg/ml prefilled syringe (2 sources) Low Molecular Weight Heparin Start: 02-10-2025 End: 02-15-2025 inject 40 mg by subcutaneous injection every twenty-four hours 40 mg, SubCUTAneous, Every 24 hours scheduled (Daily), First dose on [facility] 02/10/25 at 0900, Indication of Use: Prophylaxis-DVT/PE, Indications: Prophylaxis of Venous Thromboembolism ferric carboxymaltose (INJECTAFER) 750 mg in sodium chloride 0.9 % 250 mL IVPB (2 sources) Start: 08-29-2020 End: 08-29-2020 ferric carboxymaltose (INJECTAFER) 750 mg in sodium chloride 0.9 % 250 mL IVPB Start: 08-22-2020 End: 08-22-2020 ferric carboxymaltose (INJEC TAFER) 750 mg in sodium chloride 0.9 % 250 mL IVPB furosemide (LASIX) 100 mg in dextrose 5 [...] daily, First dose on [place] 02/10/25 at 0900 Start: 01-28-2025 End: 02-01-2025 take 100 mg by mouth twice daily 100 mg, Oral, 2 times daily, First dose on Fri01/28/25 at 0900 Start: 11-27-2023 take 1 capsule by mo [facility] three times daily Start: 06-28-2021 End: 12-02-2023 take 1 tablet [...] DAILY, First dose on Fri09/11/20 at 2100 take [address] tablets [address] [facility] once daily at bedtime Gabapentin 300 mg Tab Take 600 mg by mouth daily at bedtime. 0 Active take 2 tablets [address] [facility] twice daily gabapentin (NEURONTIN) 100 MG capsule Take 100 mg by mouth. 2 tabs twice daily 0 Active End: 09-15-2020 take 1 tablet by mouth twice daily gabapentin (NEURONTIN) 600 MG tablet Take 600 mg by mouth 2 times daily. 0 09/15/2020 Discontinued (Stop Taking at Discharge) Comment on above: Take 600 mg by mouth daily at bedtime. glimepiride 1 mg oral tablet (20 sources) Sulfonylurea Start: End: take 1 tablet by mouth once daily Glimepiride 1 mg tablet Discontinued 1 mg PO DAILY November 27, 2023 12:00am April 19, 2025 5:05pm . glipiZIDE 5 mg oral tablet (4 sources) Sulfonylurea Start: End: 2.5 mg, Oral, Daily before breakfast, First [...] End: 02-01-2025 0.5 ml heparin sodium, porcine 54974 unt/ml prefilled syringe (2 sources) Unfractionated Heparin, Anti-coagulant Start: 01-29-2025 End: 02-01-2025 inject 1 dose by subcutaneous injection three times daily 5,000 Units, SubCUTAneous, Every 8 hours scheduled (3 times per day), First dose on 01/29/25 at 1400 3 ml insulin lispro 100 unt/ml pen injector (10 sources) Insulin Analog Start: 12-02-2023 End: 04-19-2025 Insulin Lispro (Humalog Kwikpen Insulin) 100 unit/mL Insulin Pen Discontinued 0 U SC THREE TIMES DAILY BEFORE MEALS Protocol: - Use for Total Daily Dose of Insulin 37-55 units- Obsese, infected, or steroid patientsMEDIUM DOSING ALGORITHIM Condition: 150-189 mg/dl = 1 unit Condition: 190-229 mg/dl = 2 units Condition: 230-269 mg/dl = 3 units Condition: 270-309 mg/dl = 4 units Condition: 310-349 mg/dl = 5 units Condition: 350-399 mg/dl = 6 units Condition: 400-449 mg/dl = 7 units Condition: Greater than 449 call physician 0 0 April 07, 2025 12:00am April 19, 2025 5:05pm Please contact the information source for Protocol details. Start: 12-02-2023 Insulin Lispro (Humalog Kwikpen Insulin) 100 unit/mL Insulin Pen Active 0 U SC THREE TIMES DAILY BEFORE MEALS 0 0 December 02, 2023 12:00am Please contact the information source for Protocol details. Insulin Lispro (Humalog) injection 0-12 Units (4 [...] 1 tablet by jm th once daily Start: 12-07-2020 End: 02-15-2025 take 1 tablet [...] mg, Oral, Nightly PRN, sleep, Starting on Tracy 02/10/25 at 1951 Start: 09-15-2020 melatonin tabl et 3 mg 24 hr metFORMIN hydrochloride 500 mg extended release oral tablet (18 sources) Biguanide Start: 08-20-2021 End: 08-22-2021 take [...] wice daily. metOLazone 5 mg oral tablet (17 sources) Thiazide-like Diuretic Start: 06-28-2021 End: 08-22-2021 Metolazone 5 mg Tablet Discontinued 5 mg PO MOWEFR June 28, 2021 1:00am August 22, 2021 2:26pm Start: 09-22-2020 End: 09-25-2020 metOLazone (ZAROXOLYN) table t 5 mg miconazole nitrate 20 mg/ml topical cream (7 sources) Azole Antifungal Start: 12-02-2023 End: 04-06-2025 Miconazole Nitrate 2 % Cream Discontinued 1 NMA TOPICAL TWICE A DAY 0 0 December 02, 2023 12:00am April 06, 2025 10:41am In the interdigital webspace in toes Please contact the information source for Protocol details. multivitamins(DAILY VITAMIN TAB) (2 sources) Start: 03-23-2008 multivitamins(DAILY VITAMIN TAB) Take one(1) tablet daily. 0 03/23/2008 Active Comment on above: Take one(1) tablet d aily. omeprazole 20 mg delayed release oral capsule (2 sources) Proton Pump Inhibitor Start: 03-29-2013 take 2 capsules by mouth twice daily omeprazole 20 mg capsule Take 2 capsules by mouth twice daily. 180 capsule 2 03/29/2013 Active Comment on above: Take 2 capsules by out twice daily. ondansetron ODT (Zofran-ODT) disintegrating tablet 4 mg (2 sources) Start: 02-10-2025 End: 02-15-2025 take 1 tablet by mouth every eight hours as needed for nausea and vomiting ondansetron ODT (Zofran-ODT) disintegrating tablet 4 mg oxyCODONE hydrochloride 5 mg oral tablet (7 sources) Opioid Agonist Start: 12-02-2023 End: 04-06-2025 take 2.5-5 mg by mouth every four hours as needed for pain Oxycodone 5 mg Tablet Discontinued 2.5 - 5 mg PO EVERY 4 HOURS NEEDED as needed for Pain Score 4-10 7 3 0 December 02, 2023 April 06, 2025 10:41am Chronic pain of toe of left foot Pain in left toe(s) Other chronic pain perflutren lipid microspheres (DEFINITY) injection 1.65 mg [...] End: 01-31-2025 40 mEq, Oral, Once, On Fri at 1400, For 1 dose, May give [...] promethazine (PHENERGAN) tab let 12.5 mg sertraline 100 mg oral tablet (20 sources) Serotonin Reuptake Inhibitor Start: 04-06-2025 End: 04-07-2025 take 1 tablet by mouth once daily Sertraline 100 mg tablet Discontinued 100 mg PO DAILY April 06, 2025 12:00am April 07, 2025 1:18pm Depression Start: 02-10-2025 End: 02-15-2025 take 25 mg by mouth once daily 25 mg, Oral, Daily, [facility] dose on Tracy 02/10/25 at 0900 Start: 01-28-2025 End: 02-01-2025 take 25 mg by mouth once daily 25 mg, Oral, Daily, [facility] dose on Fri01/28/25 at 0900 Start: 11-27-2023 End: 04-06-2025 take 1 tablet by mouth once daily Start: 06-28-2021 End: 12-02-2023 take 1 tablet by mouth once daily Sertraline 25 mg Tablet Discontinued 25 mg PO DAILY June 28, 2021 1:00am December 02, 2023 2:03pm mdoffice sucralfate 1000 mg oral tablet (20 sources) Aluminum Complex Start: 11-27-2023 End: 04-07-2025 take 1 tablet by mouth twice daily Sucralfate (Carafate) 1 gram tablet Discontinued 1 g PO TWICE A DAY November 27, 2023 12:00am April 07, 2025 1:21pm . Start: 09-21-2021 End: 04-06-2025 take 1 mL by mouth twice daily Sucralfate 100 mg/mL bravo spension Discontinued 10 mL PO TWICE A DAY 1000 0 September 21, 2021 1:00am April 06, 2025 10:31am md office Start: 07-01-2021 End: 11-27-2023 take 1 tablet by mouth four times daily Sucralfate (Carafate) 1 gram tablet Discontinued 1 g PO .QID 30 0 July 01, 2021 1:00am November 27, 2023 11:03am tadalafil 20 mg oral tablet (20 sources) Phosphodiesterase 5 Inhibitor Start: 03-20-2024 End: [...] skin. 09/22/2024 Discontinued (Med list cleanup) therapeutic multivitamin-mineral s (Theragran-M) tablet (2 sources) Start: 01-28-2025 End: 02-01-2025 take 1 tablet by mouth once daily 1 tablet, Oral, Daily, First dose on Fri01/28/25 at 0900 torsemide 20 mg oral tablet (20 sources) [...] (morning and evening). 200 tablet 1 03/03/2025 05/02/2025 Discontinued Start: 02-02-2025 End: 02-01-2025 take 40 mg by mouth once daily 40 mg, Oral, Daily, [facility] dose (after last modification) on Fri02/02/25 at 0900 Start: 02-02-2025 End: 02-01-2025 take 40 mg by mouth once daily 40 mg, Oral, Daily, [facility] dose (after last modification) on Fri02/02/25 at 0900 Start: 03-18-2024 End: 05-02-2025 take 1 tablet by mouth in the morning torsemide (Demadex) 20 MG tablet Indications: Chronic HFrEF (heart failure with reduced ejection fraction) ([facility]) Take 1 tablet (20 mg) by mouth in the morning and 1 tablet (20 mg) in the evening. 180 tablet 1 03/11/2025 4:17 PM EDT 03/07/2025 05/02/2025 Discontinued Start: 06-05-2022 End: 12-18-2024 take 1 tablet by mouth twice daily torsemide (Demadex) 100 MG tablet Indications: Acute HFrEF (heart failure with reduced ejection fraction) ([facility]) TAKE 1 TABLET BY MOUTH 2 TIMES DAILY 180 tablet 1 12/19/2023 01/09/2024 Discontinued (Dose adjustment) Start: 08-22-2021 End: 04-06-2025 take 2 tablets by mouth twice daily Torsemide 20 mg tablet Discontinued 20 mg PO TWICE A DAY 0 30 0 December 02, 2023 1:30pm April 06, 2025 10:40am per md of pt takes 40mg po BID Start: 08-22-2021 take 40 mg by mouth twice leticia y Torsemide Active 40 MG PO TWICE A DAY 120 August 22, 2021 1:00am Start: 05-25-2021 End: [...] 09-16-2020 torsemide (DEM ADEX) tablet 80 mg Vancomycin (2 sources) Glycopeptide Antibacterial Start: 02-10-2025 [...] oral tablet (2 sources) Start: 11-10-2008 pyridoxine hcl (VITAMIN B-6 100 MG TAB) Take one(1) tablet two(2) times daily. 0 11/10/2008 Active Comment on above: Take one(1) tablet t wo(2) times daily. Problems Active Problems Problem Classification Problem Date Documented Da te Episodic/Chronic Acute and unspecified renal failure (20 sources) [id number] renal failure; Translations: [Acute kidney failure, unspecified] [...] systolic heart failure] Onset: 1 08-24-2020 Chronic Congestive heart failure; nonhypertensive (3 sources) Congestive heart failure; nonhypertensive Diabetes mellitus with complications (12 sources) Hyperglycemia due to type 2 diabetes mellitus; Translations: [Type 2 diabetes mellitus with hyperglycemia] 04-07-2025 Chronic Diabetes mellitus without complication (10 sources) Diabetes mellitus; Translations: [Type 2 diabetes mellitus without complications] Onset: 5 04-05-2025 Chronic Diseases of mouth; excluding dental (17 sources) Minor oral aphthous ulceration; Translations: [Recurrent oral aphthae] Episodic Diseases of white blood cells (8 sources) Leukocytosis; Translations: [Elevated white blood cell count, unspecified] 11-27-2023 Chronic Disorders of lipid metabolism (20 sources) Hyperlipidemia; Translations: [Hyperlipidemia, unspecified] Onset: 1 08-01-2020 Chronic Diverticulosis and diverticulitis (6 sources) Diverticulitis; Translations: [Diverticulitis of intestine, part unspecified, without perforation or abscess without bleeding] 12-12-2024 Chronic E Codes: Fall (10 sources) Fall; Translations: [Unspecified fall, initial encounter] Onset: 5 04-01-2025 Episodic Esophageal disorders (20 sources) Gastroesophageal reflux disease; Translations: [Gastro-esophageal reflux disease without esophagitis] Onset: 3 Chronic Essential hypertension (20 sources) Hypertensive disorder; Translations: [Essential hypertension] Onset: 1 08-01-2020 Chronic Fluid and electrolyte disorders (16 sources) Hypokalemia; Translations: [Hypokalemia] 07-09-2021 Episodic Fracture of lower limb (7 sources) Closed fracture proximal phalanx, toe ; Translations: [Displaced fracture of proximal phalanx of left lesser toe(s), initial encounter for closed fracture] 12-10-2023 Episodic Gastrointestinal hemorrhage (20 sources) Gastrointestinal hemorrhage; Translations: [Gastrointestinal hemorrhage, unspecified] Episodic Hyperplasia of prostate (6 sources) Benign prostatic hyperplasia; Translations: [Benign prostatic hyperplasia without lower urinary tract symptoms] 04-07-2025 Chronic Hypertension with complications and secondary hypertension (1 source) Hypertensive heart and chronic kidney disease with heart failure and stage 1 through stage 4 chronic kidney disease, or unspecified chronic kidney disease; Translations: [Hypertensive heart and chronic kidney disease with heart failure and stage 1 through stage 4 chronic kidney disease, or unspecified chronic kidney disease] Onset: 5 Chronic Malaise and fatigue (19 sources) Asthenia; Translations: [Weakness] Onset: 5 11-27-2023 Episodic Non-Hodgkin`s lymphoma (20 sources) Follicular non-Hodgkin's lymphoma; Translations: [Follicular lymphoma, unspecified, unspecified site] Onset: 8 10-20-2015 Chronic Open wounds of head; neck; and trunk (5 sources) Laceration of head; Translations: [Laceration without foreign body of unspecified part of head, initial encounter] 04-01-2025 Episodic Other circulatory disease (16 sources) Low blood pressure; Translations: [Hypotension, unspecified] 07-09-2021 Episodic Other circulatory disease (16 sources) Orthostatic hypotension; Translations: [Orthostatic hypotension] 08-30-2021 Episodic Other circulatory disease (1 source) Orthostatic hypotension; Translations: [Orthostatic hypotension] Episodic Other connective tissue disease (15 sources) Rhabdomyolysis; Translations: [Rhabdomyolysis] 11-27-2023 Episodic Other connective tissue disease (7 sources) Chronic pain of left foot; Translations: [Pain in left toe(s)] 12-10-2023 Episodic Other connective tissue disease (1 source) Other specified soft tissue disorders; Translations: [Other specified soft tissue disorders] Onset: 5 Episodic Other connective tissue disease (1 source) Rhabdomyolysis; Translations: [Rhabdomyolysis] Onset: 5 Episodic Other gastrointestinal disorders (20 sources) Malabsorption - iron; Translations: [Intestinal malabsorption, unspecified] Onset: 1 08-15-2020 Chronic Other gastrointestinal disorders (16 sources) Constipation; Translations: [Constipation, unspecified] 02-18-2022 Episodic Other gastrointestinal disorders (5 sources) Constipation, unspecified; Translations: [Constipation, unspecified] Episodic Other injuries and conditions due to external causes (5 sources) Closed injury of head; Translations: [Unspecified injury of head, initial encounter] 04-01-2025 Episodic Other lower respiratory disease (1 source) Pleurodynia; Translations: [Pleurodynia] Onset: 5 Episodic Other male genital disorders (2 sources) Male erectile dysfunction, unspecified; Translations: [Impotence of organic origin] 12-22-2023 Chronic Other nutritional; endocrine; and metabolic disorders (16 sources) Hyperuricemia; Translations: [Hyperuricemia without signs of inflammatory arthritis and tophaceous disease] 07-09-2021 Episodic Belen-; endo-; and myocarditis; cardiomyopathy (except that caused by tuberculosis or sexually transmitted disease) (20 sources) Cardiomyopathy; Translations: [Other cardiomyopathies] Onset: 1 08-01-2020 Chronic Residual codes; unclassified (2 sources) Bilateral lower limb edema; Translations: [Localized edema] 01-28-2025 Episodic Skin and subcutaneous tissue infections (20 sources) Cellulitis of lower limb; Translations: [Cellulitis of unspecified part of limb] Onset: 5 02-10-2025 Episodic Spondylosis; intervertebral disc disorders; other back problems (14 sources) Spinal stenosis of lumbar region; Translations: [Spinal stenosis, lumbar region without neurogenic claudication] Episodic Superficial injury; contusion (1 source) Contusion of other part of head, initial encounter; Translations: [Contusion of other part of head, initial encounter] Onset: 5 Episodic Thyroid disorders (6 sources) Hypothyroidism; Translations: [Hypothyroidism, unspecified] 04-07-2025 Chronic Unclassified (2 sources) 1 Year Follow-up; Translations: [...] acute cor pulmonale] Onset: 08-01-2020 08-01-2020 Episodic Residual codes; unclassified (2 sources) Localized edema; Translations: [Localized edema] Onset: 01-28-2025 Episodic Results Test Name Value Interpretation Reference Range Facility Basic Metabolic Profile (BMP )on 05-13-2025 BUN Normal 4-19 [facility] Comment on above: Result Comment: Canc elled via OM: Order cancelled - Patient discharged Performed By: #### L 500.2500, L100.0100 ####[facility] [address] [facility] [address] BUN/CRE Normal 10- [facility] Comment on above: Result Comment: Canc elled via OM: Order cancelled - Patient discharged Performed By: #### L 500.2500, L100.0100 ####[facility] [address] [place], [address] Calcium Normal 7.6-11.0 [facility] Comment on above: Result Comment: Canc elled via OM: Order cancelled - Patient discharged Performed By: #### L 500.2500, L100.0100 ####[facility] [address] [place], [address] CL Normal 98-108 [facility] Comment on above: Result Comment: Canc elled via OM: Order cancelled - Patient discharged Performed By: #### L 500.2500, L100.0100 ####[facility] [address] [place], [address] CO2 Normal 21.0-32.0 [facility] Comment on above: Result Comment: Canc elled via OM: Order cancelled - Patient discharged Performed By: #### L 500.2500, L100.0100 ####[facility] [address] [place], [address] CREAT,SERUM Normal 0.70-1.20 [facility] Comment on above: Result Comment: Canc elled via OM: Order cancelled - Patient discharged Performed By: #### L 500.2500, L100.0100 ####[facility] [address] [place], [address] eGFR Normal >60 [facility] Comment on above: Result Comment: Canc elled via OM: Order cancelled - Patient discharged Performed By: #### L 500.2500, L100.0100 ####[facility] [address] [place], [address] GAP Normal 5-15 [facility] Comment on above: Result Comment: Canc elled via OM: Order cancelled - Patient discharged Performed By: #### L 500.2500, L100.0100 ####[facility] [address] [place], [address] GLU Normal 70-99 [facility] Comment on above: Result Comment: Canc elled via OM: Order cancelled - Patient discharged Performed By: #### L 500.2500, L100.0100 ####[facility] [address] [place], [address] Potassium Normal 3.3-5.1 [facility] Comment on above: Result Comment: Canc elled via OM: Order cancelled - Patient discharged Performed By: #### L 500.2500, L100.0100 ####[facility] [address] [place], [address] Basic Metabolic Profile (BMP) Normal 133-145 [facility] Comment on above: Result Comment: Canc elled via OM: Order cancelled - Patient discharged Performed By: #### L 500.2500, L100.0100 ####[facility] [address] [place], [address] CBC W/Diff, Automatedon 10-2 Absolute Neut Normal 2.0-7.7 [facility] Comment on above: Result Comment: Canc elled via OM: Order cancelled - Patient discharged Performed By: #### L 500.2500, L100.0100 ####[facility] [address] [place], [address] HCT Normal 40-54 [facility] Comment on above: Result Comment: Canc elled via OM: Order cancelled - Patient discharged Performed By: #### L 500.2500, L100.0100 ####[facility] [address] [place], [address] HGB Normal 13.0-16.5 [facility] Comment on above: Result Comment: Canc elled via OM: Order cancelled - Patient discharged Performed By: #### L 500.2500, L100.0100 ####[facility] [address] [place], [address] MCH Normal 27.0-32.0 [facility] Comment on above: Result Comment: Canc elled via OM: Order cancelled - Patient discharged Performed By: #### L 500.2500, L100.0100 ####[facility] [address] [place], [address] MCHC Normal 32-36 [facility] Comment on above: Result Comment: Canc elled via OM: Order cancelled - Patient discharged Performed By: #### L 500.2500, L100.0100 ####[facility] [address] [place], [address] MCV Normal 80-94 [facility] Comment on above: Result Comment: Canc elled via OM: Order cancelled - Patient discharged Performed By: #### L 500.2500, L100.0100 ####[facility] [address] [place], [address] NEUT% Normal 47-70 [facility] Comment on above: Result Comment: Canc elled via OM: Order cancelled - Patient discharged Performed By: #### L 500.2500, L100.0100 ####[facility] [address] [place], [address] PLT Normal 150-450 [facility] Comment on above: Result Comment: Canc elled via OM: Order cancelled - Patient discharged Performed By: #### L 500.2500, L100.0100 ####[facility] [address] [place], [address] RBC Normal 4.6-6.2 [facility] Comment on above: Result Comment: Canc elled via OM: Order cancelled - Patient discharged Performed By: #### L 500.2500, L100.0100 ####[facility] [address] [place], [address] RDW CV Normal 11.6-14.6 [facility] Comment on above: Result Comment: Canc elled via OM: Order cancelled - Patient discharged Performed By: #### L 500.2500, L100.0100 ####[facility] [address] [place], [address] RDW SD Normal 35.1-43.9 [facility] Comment on above: Result Comment: Canc elled via OM: Order cancelled - Patient discharged Performed By: #### L 500.2500, L100.0100 ####[facility] [address] [place], [address] WBC Normal 4.4-11.0 [facility] Comment on above: Result Comment: Canc elled via OM: Order cancelled - Patient discharged Performed By: #### L 500.2500, L100.0100 ####[facility] [address] [place], [address] Basic Metabolic Profile (BMP )on 05-06-2025 BUN Normal 4-19 [facility] Comment on above: Result Comment: Canc elled via OM: Order cancelled - Patient discharged Performed By: #### L 500.2500, L100.0100 ####[facility] [address] [place], [address] BUN/CRE Normal 10-20 [facility] Comment on above: Result Comment: Canc elled via OM: Order cancelled - Patient discharged Performed By: #### L 500.2500, L100.0100 ####[facility] [address] [place], [address] Calcium Normal 7.6-11.0 [facility] Comment on above: Result Comment: Canc elled via OM: Order cancelled - Patient discharged Performed By: #### L 500.2500, L100.0100 ####[facility] [address] [place], [address] CL Normal 98-108 [facility] Comment on above: Result Comment: Canc elled via OM: Order cancelled - Patient discharged Performed By: #### L 500.2500, L100.0100 ####[facility] [address] [place], [address] CO2 Normal 21.0-32.0 [facility] Comment on above: Result Comment: Canc elled via OM: Order cancelled - Patient discharged Performed By: #### L 500.2500, L100.0100 ####[facility] [address] [place], [address] CREAT,SERUM Normal 0.70-1.20 [facility] Comment on above: Result Comment: Canc elled via OM: Order cancelled - Patient discharged Performed By: #### L 500.2500, L100.0100 ####[facility] [address] [place], [address] eGFR Normal >60 [facility] Comment on above: Result Comment: Canc elled via OM: Order cancelled - Patient discharged Performed By: #### L 500.2500, L100.0100 ####[facility] [address] [place], [address] GAP Normal 5-15 [facility] Comment on above: Result Comment: Canc elled via OM: Order cancelled - Patient discharged Performed By: #### L 500.2500, L100.0100 ####[facility] [address] [place], [address] GLU Normal 70-99 [facility] Comment on above: Result Comment: Canc elled via OM: Order cancelled - Patient discharged Performed By: #### L 500.2500, L100.0100 ####[facility] [address] [place], [address] Potassium Normal 3.3-5.1 [facility] Comment on above: Result Comment: Canc elled via OM: Order cancelled - Patient discharged Performed By: #### L 500.2500, L100.0100 ####[facility] [address] [place], [address] Basic Metabolic Profile (BMP) Normal 133-145 [facility] Comment on above: Result Comment: Canc elled via OM: Order cancelled - Patient discharged Performed By: #### L 500.2500, L100.0100 ####[facility] [address] [place], [address] CBC W/Diff, Automatedon 10- Absolute Neut Normal 2.0-7.7 [facility] Comment on above: Result Comment: Canc elled via OM: Order cancelled - Patient discharged Performed By: #### L 500.2500, L100.0100 ####[facility] [address] [place], [address] HCT Normal 40-54 [facility] Comment on above: Result Comment: Canc elled via OM: Order cancelled - Patient discharged Performed By: #### L 500.2500, L100.0100 ####[facility] [address] [place], [address] HGB Normal 13.0-16.5 [facility] Comment on above: Result Comment: Canc elled via OM: Order cancelled - Patient discharged Performed By: #### L 500.2500, L100.0100 ####[facility] [address] [place], [address] MCH Normal 27.0-32.0 [facility] Comment on above: Result Comment: Canc elled via OM: Order cancelled - Patient discharged Performed By: #### L 500.2500, L100.0100 ####[facility] [address] [place], [address] MCHC Normal 32-36 [facility] Comment on above: Result Comment: Canc elled via OM: Order cancelled - Patient discharged Performed By: #### L 500.2500, L100.0100 ####[facility] [address] [place], [address] MCV Normal 80-94 [facility] Comment on above: Result Comment: Canc elled via OM: Order cancelled - Patient discharged Performed By: #### L 500.2500, L100.0100 ####[facility] [address] [place], [address] NEUT% Normal 47-70 [facility] Comment on above: Result Comment: Canc elled via OM: Order cancelled - Patient discharged Performed By: #### L 500.2500, L100.0100 ####[facility] [address] [place], [address] PLT Normal 150-450 [facility] Comment on above: Result Comment: Canc elled via OM: Order cancelled - Patient discharged Performed By: #### L 500.2500, L100.0100 ####[facility] [address] [place], [address] RBC Normal 4.6-6.2 [facility] Comment on above: Result Comment: Canc elled via OM: Order cancelled - Patient discharged Performed By: #### L 500.2500, L100.0100 ####[facility] [address] [place], [address] RDW CV Normal 11.6-14.6 [facility] Comment on above: Result Comment: Canc elled via OM: Order cancelled - Patient discharged Performed By: #### L 500.2500, L100.0100 ####[facility] [address] [place], [address] RDW SD Normal 35.1-43.9 [facility] Comment on above: Result Comment: Canc elled via OM: Order cancelled - Patient discharged Performed By: #### L 500.2500, L100.0100 ####[facility] [address] [place], [address] WBC Normal 4.4-11.0 [facility] Comment on above: Result Comment: Canc elled via OM: Order cancelled - Patient discharged Performed By: #### L 500.2500, L100.0100 ####[facility] [address] [place], [address] 36on 05-02-2025 36 PC to patient. I spoke with him and . His feet are not blue. His feet are purple close to his toes. States worse with colder weather. His feet are cold but this is not new for him. He has normal function of his feet and toes. 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 He has been out of lasix since he got home on Friday. He has started to retain some fluid in his legs and belly. Recommend to elevate legs as much as possible, follow low sodium diet. Daughter states he is not eating much. He has not been weighing himself since he got home as it has been a lot Will talk with RBC about him being out of diuretic. Do not want him to end up in the hospital again. They verbalized understanding. R/W RBC he would like patient to take 80 mg lasix for 3 days then go back to normal dose. PC to pts daughter. Reviewed RBC recommendations. Will f/u later this week for update. Reviewed to start weighing him daily. Will call sooner if he is not improving. She verbalized understanding. Normal [facility] 36 PC to Rachel at [facility]. Patient was in the hospital 04/05 he had falen at home and was on the floor for 5 hours. When he can into the hospital he was treated for rhabdo and heart failure exacerbation. Patient was d/c on Sharon but does not have any at home. Asking if he should continue med? Family mentioned that he has been on medication in the past. I was able to review chart while she was on the phone, his sharon was stopped d/t kidney function. He was taken off torsemide and put on furosemide 40 mg daily. Metoprolol was cut down to 50 mg daily. Will request hospital records. I see CMP from earlier this month but do not know if he has had anything more recent or if he was on sharon at the time. Has appt currently scheduled with [facility] next month. Will move up appt to thenext 1-2 weeks for hosp f/u. Will r/w RBC she verbalized understanding. Normal [facility] [address]andi from [facility] [phone] requesting return call regarding medications, Aldactone? Should still be taking? Normal [facility] Bedside Glucoseon 04-30-2025 FINGERSTICK GLU 130 mg/dL High 74-106 [facility] Comment on above: Result Comment: JOHNNY GEMENT OF PATIENT CARE PER NURSING PROTOCOL Performed By: #### L 501.080 ####[facility] [address] [place], [place], [address] FINGERSTICK GLU 117 mg/dL High 74-106 [facility] Comment on above: Result Comment: JOHNNY GEMENT OF PATIENT CARE PER NURSING PROTOCOL Performed By: #### L 501.080 ####[facility] [address] [place], [place], [address] Basic Metabolic Profile (BMP )on 04-29-2025 BUN/CRE 23.5 RATIO High 10-20 [facility] Comment on above: Performed By: #### L 500.2500, L100.0100 ####[facility] [address] [place], [address] Calcium [Mass/Vol] 8.2 mg/dL Normal 7.6-11.0 [facility] Comment on above: Performed By: #### L 500.2500, L100.0100 ####[facility] [address] [place], [address] Chloride [Moles/Vol] 100 mmol/L Normal 98-108 [facility] Comment on above: Performed By: #### L 500.2500, L100.0100 ####[facility] [address] [place], [address] CO2 [Moles/Vol] 22.5 mmol/L Normal 21.0-32.0 [facility] Comment on above: Performed By: #### L 500.2500, L100.0100 ####[facility] [address] [place], [address] Creatinine [Mass/Vol] 1.94 mg/dL High 0.70-1.[address] [facility] Comment on above: Performed By: #### L 500.2500, L100.0100 ####[facility] [address] [place], [address] ECRCL 28.90 ml/min Low 50-250 [facility] Comment on above: Performed By: #### L 500.2500, L100.0100 ####[facility] [address] [place], [address] GAP 11 Normal 5-15 [facility] Comment on above: Performed By: #### L 500.2500, L100.0100 ####[facility] [address] [place], [address] GFR/1.73 sq M.predicted among non-blacks MDRD (S/P/Bld) [Vol rate/Area] 33 mL/min/{1.73_m2} Low >60 [facility] Comment on above: Result Comment: mL/m in/1.73m2 CKD-EPI Creatinine Equation (2020) Performed By: #### L 500.2500, L100.0100 ####[facility] [address] [place], [address] Glucose [Mass/Vol] 126 mg/dL High 70-99 [facility] Comment on above: Performed By: #### L 500.2500, L100.0100 ####[facility] [address] [place], [address] Potassium [Moles/Vol] 3.8 mmol/L Normal 3.3-5.[address] [facility] Comment on above: Result Comment: Hemo lysis present, Results??could be affected.?? Performed By: #### L 500.2500, L100.0100 ####[facility] [address] [place], [address] Sodium [Moles/Vol] 134 mmol/L Normal 133-145 [facility] Comment on above: Performed By: #### L 500.2500, L100.0100 ####[facility] [address] [place], [address] Urea nitrogen [Mass/Vol] 46 mg/dL High 4-19 [facility] Comment on above: Performed By: #### L 500.2500, L100.0100 ####[facility] [address] [place], [address] Bedside Glucoseon 04-29-2025 FINGERSTICK GLU 181 mg/dL High 74-106 [facility] Comment on above: Result Comment: JOHNNY SEEMAENT OF PATIENT CARE PER NURSING PROTOCOL Performed By: #### L 501.080 ####[facility] [address] [place], [address] FINGERSTICK GLU 164 mg/dL High 74-106 [facility] Comment on above: Result Comment: JOHNNY GEMENT OF PATIENT CARE PER NURSING PROTOCOL Performed By: #### L 501.080 ####[facility] [address] [place], [address] FINGERSTICK GLU 149 mg/dL High 74-106 [facility] Comment on above: Result Comment: JOHNNY GEMENT OF PATIENT CARE PER NURSING PROTOCOL Performed By: #### L 501.080 ####[facility] [address] [place], [address] FINGERSTICK GLU 123 mg/dL High 74-106 [facility] Comment on above: Result Comment: JOHNNY GEMENT OF PATIENT CARE PER NURSING PROTOCOL Performed By: #### L 501.080 ####[facility] [address] [place], [address] CBC W/Diff, Automatedon 10-1 0-2025 Absolute Lymph 0.58 X10 3/uL Low 0.83-4.51 [facility] Comment on above: Performed By: #### L 500.2500, L100.0100 ####[facility] [address] [place], [address] Absolute Neut 3.5 X10 3/uL Normal 2.0-7.7 [facility] Comment on above: Performed By: #### L 500.2500, L100.0100 ####[facility] [address] [place], [address] Basophils/100 WBC (Bld) 0.0 % Normal 0-1 [facility] Comment on above: Performed By: #### L 500.2500, L100.0100 ####[facility] [address] [place], [address] Eosinophils/100 WBC (Bld) 0.2 % Normal 0-5 [facility] Comment on above: Performed By: #### L 500.2500, L100.0100 ####[facility] [address] [place], [address] Erythrocyte distribution width (RBC) [Ratio] 19.9 % High 11.6-14.6 [facility] Comment on above: Performed By: #### L 500.2500, L100.0100 ####[facility] [address] [place], [address] Hematocrit (Bld) [Volume fraction] 41.9 % Normal 40-54 [facility] Comment on above: Performed By: #### L 500.2500, L100.0100 ####[facility] [address] [place], [address] Hemoglobin (Bld) [Mass/Vol] 14.4 g/dL Normal 13.0-16.5 [facility] Comment on above: Performed By: #### L 500.2500, L100.0100 ####[facility] [address] [place], [address] IG% 1.100 High 0.0-0.9 [facility] Comment on above: Result Comment: IG% - Immature Granulocytes (promyelocytes, myelocytes andmetamyelocytes) > 1% indicates that a LEFT SHIFT is Present. Performed By: #### L 500.2500, L100.0100 ####[facility] [address] [place], [address] Lymphocytes/100 WBC (Bld) 13.1 % Low 19-41 [facility] Comment on above: Performed By: #### L 500.2500, L100.0100 ####[facility] [address] [place], [address] MCH (RBC) [Entitic mass] 29.6 pg Normal 27.0-32.0 [facility] Comment on above: Performed By: #### L 500.2500, L100.0100 ####[facility] [address] [place], [address] MCHC (RBC) [Mass/Vol] 34.4 g/dL Normal 32-[address] [facility] Comment on above: Performed By: #### L 500.2500, L100.0100 ####[facility] [address] [place], [address] MCV (RBC) [Entitic vol] 86.2 fL Normal 80-94 [facility] Comment on above: Performed By: #### L 500.2500, L100.0100 ####[facility] [address] [place], [address] Monocytes/100 WBC (Bld) 6.1 % Normal 0-10 [facility] Comment on above: Performed By: #### L 500.2500, L100.0100 ####[facility] [address] [place], [address] Neutrophils/100 WBC (Bld) 79.5 % High 47-70 [facility] Comment on above: Performed By: #### L 500.2500, L100.0100 ####[facility] [address] [place], [address] Nucleated RBC (Bld) [#/Vol] 0 10*3/uL Normal 0-5 [facility] Comment on above: Performed By: #### L 500.2500, L100.0100 ####[facility] [address] [place], [address] Platelet mean volume (Bld) [Entitic vol] 11.1 fL Normal 6.2-12.0 [facility] Comment on above: Performed By: #### L 500.2500, L100.0100 ####[facility] [address] [place], [address] Platelets (Bld) [#/Vol] 171 10*3/uL Normal 150-450 [facility] Comment on above: Performed By: #### L 500.2500, L100.0100 ####[facility] [address] [place], [address] RBC (Bld) [#/Vol] 4.86 10*6/uL Normal 4.6-6.2 [facility] Comment on above: Performed By: #### L 500.2500, L100.0100 ####[facility] [address] [place], [address] RDW SD 60.5 fl High 35.1-43.9 [facility] Comment on above: Performed By: #### L 500.2500, L100.0100 ####[facility] [address] [place], [address] WBC (Bld) [#/Vol] 4.4 10*3/uL Normal 4.4-11.0 [facility] Comment on above: Performed By: #### L 500.2500, L100.0100 ####[facility] [address] [place], [address] Bedside Glucoseon 04-28-2025 FINGERSTICK GLU 213 mg/dL High 74-106 [facility] Comment on above: Result Comment: JOHNNY GEMENT OF PATIENT CARE PER NURSING PROTOCOL Performed By: #### L 501.080 ####[facility] [address] [place], [address] FINGERSTICK GLU 190 mg/dL High 74-106 [facility] Comment on above: Result Comment: JOHNNY GEMENT OF PATIENT CARE PER NURSING PROTOCOL Performed By: #### L 501.080 ####[facility] [address] [place], [address] FINGERSTICK GLU 170 mg/dL High 74-106 [facility] Comment on above: Result Comment: JOHNNY GEMENT OF PATIENT CARE PER NURSING PROTOCOL Performed By: #### L 501.080 ####[facility] [address] [place], [address] FINGERSTICK GLU 106 mg/dL Normal 74-106 [facility] Comment on above: Result Comment: JOHNNY GEMENT OF PATIENT CARE PER NURSING PROTOCOL Performed By: #### L 501.080 ####[facility] [address] [place], [address] 36on 04-27-2025 36 Called and spoke with the patient on 04-27-2025 due to not receiving his transmission. Per patient, he is currently admitted in the hospital ( [facility] ). Will reschedule his auto remote for a different day. Normal [facility] Bedside Glucoseon 04-27-2025 FINGERSTICK GLU 187 mg/dL High 74-106 [facility] Comment on above: Result Comment: JOHNNY GEMENT OF PATIENT CARE PER NURSING PROTOCOL Performed By: #### L 501.080 ####[facility] [address] [facility] [address] FINGERSTICK GLU 209 mg/dL High 74-106 [facility] Comment on above: Result Comment: JOHNNY GEMENT OF PATIENT CARE PER NURSING PROTOCOL Performed By: #### L 501.080 ####[facility] [address] [place], [address] FINGERSTICK GLU 129 mg/dL High 74-106 [facility] Comment on above: Result Comment: JOHNNY GEMENT OF PATIENT CARE PER NURSING PROTOCOL Performed By: #### L 501.080 ####[facility] [address] [facility] [address] FINGERSTICK GLU 120 mg/dL High 74-106 [facility] Comment on above: Result Comment: JOHNNY GEMENT OF PATIENT CARE PER NURSING PROTOCOL Performed By: #### L 501.080 ####[facility] [address] [place], [address] Bedside Glucoseon 04-26-2025 FINGERSTICK GLU 179 mg/dL High 74-106 [facility] Comment on above: Result Comment: JOHNNY GEMENT OF PATIENT CARE PER NURSING PROTOCOL Performed By: #### L 501.080 ####[facility] [address] [place], [address] FINGERSTICK GLU 165 mg/dL High 74-106 [facility] Comment on above: Result Comment: JOHNNY GEMENT OF PATIENT CARE PER NURSING PROTOCOL Performed By: #### L 501.080 ####[facility] [address] [place], [address] FINGERSTICK GLU 131 mg/dL High 74-106 [facility] Comment on above: Result Comment: JOHNNY GEMENT OF PATIENT CARE PER NURSING PROTOCOL Performed By: #### L 501.080 ####[facility] [address] [place], [address] FINGERSTICK GLU 99 mg/dL Normal 74-106 [facility] Comment on above: Result Comment: JOHNNY GEMENT OF PATIENT CARE PER NURSING PROTOCOL Performed By: #### L 501.080 ####[facility] [address] [place], [address] Basic Metabolic Profile (BMP )on 04-25-2025 BUN/CRE 22.0 RATIO High 10-20 [facility] Comment on above: Performed By: #### L 500.2500 ####[facility] [address] [place], [address] Calcium [Mass/Vol] 8.7 mg/dL Normal 7.6-11.0 [facility] Comment on above: Performed By: #### L 500.2500 ####[facility] [address] [place], [address] Chloride [Moles/Vol] 100 mmol/L Normal 98-108 [facility] Comment on above: Performed By: #### L 500.2500 ####[facility] [address] [place], [address] CO2 [Moles/Vol] 21.5 mmol/L Normal 21.0-32.0 [facility] Comment on above: Performed By: #### L 500.2500 ####[facility] [address] [place], [address] Creatinine [Mass/Vol] 2.18 mg/dL High 0.70-1.[address] [facility] Comment on above: Performed By: #### L 500.2500 ####[facility] [address] [place], [address] ECRCL 25.69 ml/min Low 50-250 [facility] Comment on above: Performed By: #### L 500.2500 ####[facility] [address] [place], [address] GAP 15 Normal 5-15 [facility] Comment on above: Performed By: #### L 500.2500 ####[facility] [address] [place], [address] GFR/1.73 sq M.predicted among non-blacks MDRD (S/P/Bld) [Vol rate/Area] 29 mL/min/{1.73_m2} Low >60 [facility] Comment on above: Result Comment: mL/m in/1.73m2 CKD-EPI Creatinine Equation (2020) Performed By: #### L 500.2500 ####[facility] [address] [place], [address] Glucose [Mass/Vol] 117 mg/dL High 70-99 [facility] Comment on above: Performed By: #### L 500.2500 ####[facility] [address] [place], [address] Potassium [Moles/Vol] 4.3 mmol/L Normal 3.3-5.[address] [facility] Comment on above: Performed By: #### L 500.2500 ####[facility] [address] [place], [address] Sodium [Moles/Vol] 136 mmol/L Normal 133-145 [facility] Comment on above: Performed By: #### L 500.2500 ####[facility] [address] [place], [address] Urea nitrogen [Mass/Vol] 48 mg/dL High 4-19 [facility] Comment on above: Performed By: #### L 500.2500 ####[facility] [address] [place], [address] Bedside Glucoseon 04-25-2025 FINGERSTICK GLU 140 mg/dL High 74-106 [facility] Comment on above: Result Comment: JOHNNY GEMENT OF PATIENT CARE PER NURSING PROTOCOL Performed By: #### L 501.080 ####[facility] [address] [place], [address] FINGERSTICK GLU 223 mg/dL High 74-106 [facility] Comment on above: Result Comment: JOHNNY GEMENT OF PATIENT CARE PER NURSING PROTOCOL Performed By: #### L 501.080 ####[facility] [address] [place], [address] FINGERSTICK GLU 135 mg/dL High 74-106 [facility] Comment on above: Result Comment: JOHNNY GEMENT OF PATIENT CARE PER NURSING PROTOCOL Performed By: #### L 501.080 ####[facility] [address] [place], [address] FINGERSTICK GLU 123 mg/dL High 74-106 [facility] Comment on above: Result Comment: JOHNNY GEMENT OF PATIENT CARE PER NURSING PROTOCOL Performed By: #### L 501.080 ####[facility] [address] [place], [address] Bedside Glucoseon 04-24-2025 FINGERSTICK GLU 206 mg/dL High 74-106 [facility] Comment on above: Result Comment: JOHNNY GEMENT OF PATIENT CARE PER NURSING PROTOCOL Performed By: #### L 501.080 ####[facility] [address] [place], [address] FINGERSTICK GLU 181 mg/dL High 74-106 [facility] Comment on above: Result Comment: JOHNNY GEMENT OF PATIENT CARE PER NURSING PROTOCOL Performed By: #### L 501.080 ####[facility] [address] [place], [address] FINGERSTICK GLU 136 mg/dL High -106 [facility] Comment on above: Result Comment: JOHNNY GEMENT OF PATIENT CARE PER NURSING PROTOCOL Performed By: #### L 501.080 ####[facility] [address] [place], [address] FINGERSTICK GLU 114 mg/dL High [address] [place] [address] Comment on above: Result Comment: JOHNNY GEMENT OF PATIENT CARE PER NURSING PROTOCOL Performed By: #### L 501.080 ####[facility] [address] [place], [address] Bedside Glucoseon 04-23-2025 FINGERSTICK GLU 182 mg/dL High -[address] [place] [address] Comment on above: Result Comment: JOHNNY GEMENT OF PATIENT CARE PER NURSING PROTOCOL Performed By: #### L 501.080 ####[facility] [address] [place], [address] FINGERSTICK GLU 179 mg/dL High [address] [place] [address] Comment on above: Result Comment: JOHNNY GEMENT OF PATIENT CARE PER NURSING PROTOCOL Performed By: #### L 501.080 ####[facility] [address] [place], [address] FINGERSTICK GLU 132 mg/dL High [address] [place] [address] Comment on above: Result Comment: JOHNNY GEMENT OF PATIENT CARE PER NURSING PROTOCOL Performed By: #### L 501.080 ####[facility] [address] [place], [address] FINGERSTICK GLU 95 mg/dL Normal 74-106 [facility] Comment on above: Result Comment: JOHNNY JAUREGUI OF PATIENT CARE PER NURSING PROTOCOL Performed By: #### L 501.080 ####[facility] [address] [place], [address] Absolute lymphocyte countOrd ered By: Lv Moreno on 04-22-2025 Lymphocytes Auto (Unsp spec) [#/Vol] 0.81 10*3/uL Low 0.83-4.51 [facility] Absolute neutrophil countOrd ered By: Lv Moreno on 04-22-2025 Neutrophils (Bld) [#/Vol] 2.2 10*3/uL 2.0-7.7 [facility] Anion gap in Serum or Plasma Ordered By: Lv Moreno on 04-22-2025 Anion gap [Moles/Vol] 14 mmol/L 5-[address] [facility] Automated lymphocyte count a s percentage of total leukocytesOrdered By: Lv Moreno on 04-22-2025 Lymphocytes/100 WBC Auto (Unsp spec) 24.1 % 19-41 [facility] BUN/creatinine ratioOrdered By: Lv Moreno on 04-22-2025 Urea nitrogen/Creatinine [Mass ratio] 24.0 mg/mg High 05-09 [facility] Basic Metabolic Profile (BMP )on 04-22-2025 BUN/CRE 24.0 RATIO High 05-09 [facility] Comment on above: Performed By: #### L 100.0100, L500.2500 ####[facility] [address] [place], [address] Calcium [Mass/Vol] 7.9 mg/dL Normal 7.6-11.0 [facility] Comment on above: Performed By: #### L 100.0100, L500.2500 ####[facility] [address] [place], [address] Chloride [Moles/Vol] 100 mmol/L Normal 98-108 [facility] Comment on above: Performed By: #### L 100.0100, L500.2500 ####[facility] [address] [place], [address] CO2 [Moles/Vol] 20.5 mmol/L Low 21.0-32.0 [facility] Comment on above: Performed By: #### L 100.0100, L500.2500 ####[facility] [address] [place], [address] Creatinine [Mass/Vol] 1.94 mg/dL High 0.70-1.[address] [facility] Comment on above: Performed By: #### L 100.0100, L500.2500 ####[facility] [address] [place], [address] ECRCL 28.85 ml/min Low 50-250 [facility] Comment on above: Performed By: #### L 100.0100, L500.2500 ####[facility] [address] [place], [address] GAP 14 Normal 5-15 [facility] Comment on above: Performed By: #### L 100.0100, L500.2500 ####[facility] [address] [place], [address] GFR/1.73 sq M.predicted among non-blacks MDRD (S/P/Bld) [Vol rate/Area] 33 mL/min/{1.73_m2} Low >60 [facility] Comment on above: Result Comment: mL/m in/1.73m2 CKD-EPI Creatinine Equation (2020) Performed By: #### L 100.0100, L500.2500 ####[facility] [address] [place], [address] Glucose [Mass/Vol] 85 mg/dL Normal 70-99 [facility] Comment on above: Performed By: #### L 100.0100, L500.2500 ####[facility] [address] [place], [address] Potassium [Moles/Vol] 3.9 mmol/L Normal 3.3-5.[address] [facility] Comment on above: Result Comment: Hemo lysis present, Results??could be affected.?? Performed By: #### L 100.0100, L500.2500 ####[facility] [address] [place], [address] Sodium [Moles/Vol] 134 mmol/L Normal 133-145 [facility] Comment on above: Performed By: #### L 100.0100, L500.2500 ####[facility] [address] [place], [address] Urea nitrogen [Mass/Vol] 47 mg/dL High 4-19 [facility] Comment on above: Performed By: #### L 100.0100, L500.2500 ####[facility] [address] [place], [address] Basophil percentageOrdered B y: Lv Josh on 04-22-2025 Basophils/100 WBC (Bld) 0.6 % 0-1 [facility] Bedside Glucoseon 04-22-2025 FINGERSTICK GLU 164 mg/dL High 74-106 [facility] Comment on above: Result Comment: JOHNNY GEMENT OF PATIENT CARE PER NURSING PROTOCOL Performed By: #### L 501.080 ####[facility] [address] [place], [address] FINGERSTICK GLU 249 mg/dL High 74-106 [facility] Comment on above: Result Comment: JOHNNY GEMENT OF PATIENT CARE PER NURSING PROTOCOL Performed By: #### L 501.080 ####[facility] [address] [place], [address] FINGERSTICK GLU 141 mg/dL High 74-106 [facility] Comment on above: Result Comment: JOHNNY GEMENT OF PATIENT CARE PER NURSING PROTOCOL Performed By: #### L 501.080 ####[facility] [address] [place], [address] FINGERSTICK GLU 90 mg/dL Normal 74-106 [facility] Comment on above: Result Comment: JOHNNY JAUREGUI OF PATIENT CARE PER NURSING PROTOCOL Performed By: #### L 501.080 ####[facility] [address] [place], [address] CBC W/Diff, Automatedon 10-0 3-2025 Absolute Lymph 0.81 X10 3/uL Low 0.83-4.51 [facility] Comment on above: Performed By: #### L 100.0100, L500.2500 ####[facility] [address] [place], [address] Absolute Neut 2.2 X10 3/uL Normal 2.0-7.7 [facility] Comment on above: Performed By: #### L 100.0100, L500.2500 ####[facility] [address] [place], [address] Basophils/100 WBC (Bld) 0.6 % Normal 0-1 [facility] Comment on above: Performed By: #### L 100.0100, L500.2500 ####[facility] [address] [place], [address] Eosinophils/100 WBC (Bld) 0.0 % Normal 0-5 [facility] Comment on above: Performed By: #### L 100.0100, L500.2500 ####[facility] [address] [place], [address] Erythrocyte distribution width (RBC) [Ratio] 19.9 % High 11.6-14.6 [facility] Comment on above: Performed By: #### L 100.0100, L500.2500 ####[facility] [address] [place], [address] Hematocrit (Bld) [Volume fraction] 38.4 % Low 40-54 [facility] Comment on above: Performed By: #### L 100.0100, L500.2500 ####[facility] [address] [place], [address] Hemoglobin (Bld) [Mass/Vol] 13.4 g/dL Normal 13.0-16.5 [facility] Comment on above: Performed By: #### L 100.0100, L500.2500 ####[facility] [address] [place], [address] IG% 0.600 Normal 0.0-0.9 [facility] Comment on above: Result Comment: IG% - Immature Granulocytes (promyelocytes, myelocytes andmetamyelocytes) > 1% indicates that a LEFT SHIFT is Present. Performed By: #### L 100.0100, L500.2500 ####[facility] [address] [place], [address] Lymphocytes/100 WBC (Bld) 24.1 % Normal 19-41 [facility] Comment on above: Performed By: #### L 100.0100, L500.2500 ####[facility] [address] [place], [address] MCH (RBC) [Entitic mass] 29.7 pg Normal 27.0-32.0 [facility] Comment on above: Performed By: #### L 100.0100, L500.2500 ####[facility] [address] [place], [address] MCHC (RBC) [Mass/Vol] 34.9 g/dL Normal 32-[address] [facility] Comment on above: Performed By: #### L 100.0100, L500.2500 ####[facility] [address] [place], [address] MCV (RBC) [Entitic vol] 85.1 fL Normal 80-94 [facility] Comment on above: Performed By: #### L 100.0100, L500.2500 ####[facility] [address] [place], [address] Monocytes/100 WBC (Bld) 9.5 % Normal 0-10 [facility] Comment on above: Performed By: #### L 100.0100, L500.2500 ####[facility] [address] [place], [address] Neutrophils/100 WBC (Bld) 65.2 % Normal 47-70 [facility] Comment on above: Performed By: #### L 100.0100, L500.2500 ####[facility] [address] [place], [address] Nucleated RBC (Bld) [#/Vol] 0 10*3/uL Normal 0-5 [facility] Comment on above: Performed By: #### L 100.0100, L500.2500 ####[facility] [address] [place], [address] Platelet mean volume (Bld) [Entitic vol] 10.6 fL Normal 6.2-12.0 [facility] Comment on above: Performed By: #### L 100.0100, L500.2500 ####[facility] [address] [place], [address] Platelets (Bld) [#/Vol] 144 10*3/uL Low 150-450 [facility] Comment on above: Performed By: #### L 100.0100, L500.2500 ####[facility] [address] [place], [address] RBC (Bld) [#/Vol] 4.51 10*6/uL Low 4.6-6.2 [facility] Comment on above: Performed By: #### L 100.0100, L500.2500 ####[facility] [address] [place], [address] RDW SD 60.4 fl High 35.1-43.9 [facility] Comment on above: Performed By: #### L 100.0100, L500.2500 ####[facility] [address] [place], [address] WBC (Bld) [#/Vol] 3.4 10*3/uL Low 4.4-11.0 [facility] Comment on above: Performed By: #### L 100.0100, L500.2500 ####[facility] [address] [place], [address] Carbon dioxide, total [Moles /volume] in Central venous bloodOrdered By: Lv Moreno on 04-22-2025 CO2 [Moles/Vol] 20.5 mmol/L Low 21.0-32.0 [facility] Chloride assayOrdered By: Koffi Moreno on 04-22-2025 Chloride [Moles/Vol] 100 mmol/L 98-108 [facility] Eosinophil percentageOrdered By: Lv Moreno on 04-22-2025 Eosinophils/100 WBC (Bld) 0.0 % 0-5 [facility] Erythrocyte distribution wid th ratioOrdered By: Lv Moreno on 04-22-2025 Erythrocyte distribution width (RBC) [Ratio] 19.9 % High 11.6-14.6 [facility] Erythrocyte distribution wid th standard deviationOrdered By: Lv Moreno on 04-22-2025 Erythrocyte distribution width (RBC) [Ratio] 60.4 fl High 35.1-43.9 [facility] Glomerular filtration rate ( GFR) estimation/1.73 sq m using serum, plasma, or whole bOrdered By: Lv Moreno on 04-22-2025 GFR/1.73 sq M.predicted among non-blacks MDRD (S/P/Bld) [Vol rate/Area] 33 mL/min/{1.73_m2} Low >60 [facility] Comment on above: mL/min/1.73m2 CKD-EP I Creatinine Equation (2020) [facility] deOrdered By: Lv Moreno on 04-22-2025 Glucose [Mass/Vol] 90 mg/dL 74-106 [facility] Comment on above: MANAGEMENT OF PATIEN T CARE PER NURSING PROTOCOL Hematocrit Auto (Bld) [Volum e fraction]Ordered By: Lv Moreno on 04-22-2025 Hematocrit (Bld) [Volume fraction] 38.4 % Low 40-54 [facility] Hemoglobin measurementOrdere d By: Lv Moreno on 04-22-2025 Hemoglobin (Bld) [Mass/Vol] 13.4 g/dL 13.0-16.5 [facility] Immature granulocytes/100 WB C Auto (Bld)Ordered By: Lv Moreno on 04-22-2025 Immature granulocytes/100 WBC (Bld) 0.600 % 0.0-0.9 [facility] Comment on above: IG% - Immature Granu locytes (promyelocytes, myelocytes and metamyelocytes) > 1% indicates that a LEFT SHIFT is Present. MCV (mean corpuscular volume ) determinationOrdered By: Lv Moreno on 04-22-2025 MCV (RBC) [Entitic vol] 85.1 fL 80-94 [facility] Mean corpuscular hemoglobin (MCH) determinationOrdered By: Lv Moreno on 04-22-2025 MCH (RBC) [Entitic mass] 29.7 pg 27.0-32.0 [facility] Mean corpuscular hemoglobin concentration (MCHC) determinationOrdered By: Lv Moreno on 04-22-2025 MCHC (RBC) [Mass/Vol] 34.9 g/dL 32-[address] [facility] Mean platelet volume determi nationOrdered By: Lv Moreno on 04-22-2025 Platelet mean volume (Bld) [Entitic vol] 10.6 fL 6.2-12.0 [facility] Monocyte percentageOrdered B y: Lv Moreno on 04-22-2025 Monocytes/100 WBC (Bld) 9.5 % 0-10 [facility] Neutrophil percentageOrdered By: Lv Moreno on 04-22-2025 Neutrophils/100 WBC (Bld) 65.2 % 47-70 [facility] Nucleated red blood cell per centageOrdered By: Lv Moreno on 04-22-2025 Nucleated RBC/100 WBC (Bld) [Ratio] 0 % 0-5 [facility] Platelet countOrdered By: Koffi Moreno on 04-22-2025 Platelets (Bld) [#/Vol] 144 10*3/uL Low 150-450 [facility] Potassium measurement (mass/ volume)Ordered By: Lv Moreno on 04-22-2025 Potassium (Unsp spec) [Mass/Vol] 3.9 mmol/L 3.3-5.1 [facility] Comment on above: Hemolysis present, R esults could be affected. RBC Auto (Bld) [#/Vol]Ordere d By: vL Moreno on 04-22-2025 RBC (Bld) [#/Vol] 4.51 10*6/uL Low 4.6-6.2 [facility] Serum creatinine measurement (mass/volume)Ordered By: Lv Moreno on 04-22-2025 Creatinine [Mass/Vol] 1.94 mg/dL High 0.70-1.[address] [facility] [address] [facility] Serum glucose measurement (m ass/volume)Ordered By: Lv Moreno on 04-22-2025 Glucose [Mass/Vol] 85 mg/dL 70-99 [facility] Serum or plasma calcium geena urement (mass/volume)Ordered By: Lv Moreno on 04-22-2025 Calcium [Mass/Vol] 7.9 mg/dL 7.6-11.0 [facility] Serum or plasma urea nitroge n measurement (mass/volume)Ordered By: Lv Moreno on 04-22-2025 Urea nitrogen [Mass/Vol] 47 mg/dL High 4-19 [facility] Sodium levelOrdered By: Lv Moreno on 04-22-2025 Sodium [Moles/Vol] 134 mmol/L 133-145 [facility] White blood cell (WBC) count Ordered By: Lv Moreno on 04-22-2025 WBC (Bld) [#/Vol] 3.4 10*3/uL Low 4.4-11.0 [facility] Bedside Glucoseon 04-21-2025 FINGERSTICK GLU 155 mg/dL High 74-106 [facility] Comment on above: Result Comment: JOHNNY JAUREGUI OF PATIENT CARE PER NURSING PROTOCOL Performed By: #### L 501.080 ####[facility] [address] [place], [address] FINGERSTICK GLU 167 mg/dL High 74-106 [facility] Comment on above: Result Comment: JOHNNY GEMENT OF PATIENT CARE PER NURSING PROTOCOL Performed By: #### L 501.080 ####[facility] [address] [place], [address] FINGERSTICK GLU 130 mg/dL High 74-106 [facility] Comment on above: Result Comment: JOHNNY GEMENT OF PATIENT CARE PER NURSING PROTOCOL Performed By: #### L 501.080 ####[facility] [address] [place], [address] FINGERSTICK GLU 83 mg/dL Normal 74-106 [facility] Comment on above: Result Comment: JOHNNY GEMENT OF PATIENT CARE PER NURSING PROTOCOL Performed By: #### L 501.080 ####[facility] [address] [place], [address] Bilirubin, totalOrdered By: Lv Moreno on 04-21-2025 Bilirubin [Mass/Vol] 1.15 mg/dL 0.00-1.30 [facility] CBC-Complete Blood Cnt No Geraldine ffon 04-21-2025 Erythrocyte distribution width (RBC) [Ratio] 20.3 % High 11.6-14.6 [facility] Comment on above: Performed By: #### L 500.4050, L100.0500 ####[facility] [address] [place], [address] Hematocrit (Bld) [Volume fraction] 44.7 % Normal 40-54 [facility] Comment on above: Performed By: #### L 500.4050, L100.0500 ####[facility] [address] [place], [address] Hemoglobin (Bld) [Mass/Vol] 15.1 g/dL Normal 13.0-16.5 [facility] Comment on above: Performed By: #### L 500.4050, L100.0500 ####[facility] [address] [place], [address] MCH (RBC) [Entitic mass] 29.5 pg Normal 27.0-32.0 [facility] Comment on above: Performed By: #### L 500.4050, L100.0500 ####[facility] [address] [place], [address] MCHC (RBC) [Mass/Vol] 33.8 g/dL Normal 32-[address] [facility] Comment on above: Performed By: #### L 500.4050, L100.0500 ####[facility] [address] [place], [address] MCV (RBC) [Entitic vol] 87.5 fL Normal 80-94 [facility] Comment on above: Performed By: #### L 500.4050, L100.0500 ####[facility] [address] [place], [address] Platelet mean volume (Bld) [Entitic vol] 11.1 fL Normal 6.2-12.0 [facility] Comment on above: Performed By: #### L 500.4050, L100.0500 ####[facility] [address] [place], [address] Platelets (Bld) [#/Vol] 169 10*3/uL Normal 150-450 [facility] Comment on above: Performed By: #### L 500.4050, L100.0500 ####[facility] [address] [place], [address] RBC (Bld) [#/Vol] 5.11 10*6/uL Normal 4.6-6.2 [facility] Comment on above: Performed By: #### L 500.4050, L100.0500 ####[facility] [address] [place], [address] RDW SD 62.3 fl High 35.1-43.9 [facility] Comment on above: Performed By: #### L 500.4050, L100.0500 ####[facility] [address] [place], [address] WBC (Bld) [#/Vol] 5.7 10*3/uL Normal 4.4-11.0 [facility] Comment on above: Performed By: #### L 500.4050, L100.0500 ####[facility] [address] [place], [address] Comprehensive Metabolic Prof ilon 04-21-2025 Albumin [Mass/Vol] 3.5 g/dL Normal 3.4-4.8 [facility] Comment on above: Performed By: #### L 500.4050, L100.0500 ####[facility] [address] [place], [address] Albumin/Globulin [Mass ratio] 1.2 {ratio} Normal 0.9-2.4 [facility] Comment on above: Performed By: #### L 500.4050, L100.0500 ####[facility] [address] [place], [address] ALK PHOS 246 U/L High 40-129 [facility] Comment on above: Performed By: #### L 500.4050, L100.0500 ####[facility] [address] [place], [address] ALT [Catalytic activity/Vol] 33 U/L Normal <=46 [facility] Comment on above: Performed By: #### L 500.4050, L100.0500 ####[facility] [address] [place], [address] AST [Catalytic activity/Vol] 59 U/L High <=37 [facility] Comment on above: Performed By: #### L 500.4050, L100.0500 ####[facility] [address] [place], [address] Bilirubin [Mass/Vol] 1.15 mg/dL Normal 0.00-1.30 [facility] Comment on above: Performed By: #### L 500.4050, L100.0500 ####[facility] [address] [place], [address] BUN/CRE 22.1 RATIO High 10-20 [facility] Comment on above: Performed By: #### L 500.4050, L100.0500 ####[facility] [address] [place], [address] Calcium [Mass/Vol] 8.8 mg/dL Normal 7.6-11.0 [facility] Comment on above: Performed By: #### L 500.4050, L100.0500 ####[facility] [address] [place], [address] Chloride [Moles/Vol] 99 mmol/L Normal 98-108 [facility] Comment on above: Performed By: #### L 500.4050, L100.0500 ####[facility] [address] [place], [address] CO2 [Moles/Vol] 23.4 mmol/L Normal 21.0-32.0 [facility] Comment on above: Performed By: #### L 500.4050, L100.0500 ####[facility] [address] [place], [address] Creatinine [Mass/Vol] 2.08 mg/dL High 0.70-1.[address] [facility] Comment on above: Performed By: #### L 500.4050, L100.0500 ####[facility] [address] [place], [address] ECRCL 26.91 ml/min Low 50-250 [facility] Comment on above: Performed By: #### L 500.4050, L100.0500 ####[facility] [address] [place], [address] GAP 15 Normal 5-15 [facility] Comment on above: Performed By: #### L 500.4050, L100.0500 ####[facility] [address] [place], [address] GFR/1.73 sq M.predicted among non-blacks MDRD (S/P/Bld) [Vol rate/Area] 31 mL/min/{1.73_m2} Low >60 [facility] Comment on above: Result Comment: mL/m in/1.73m2 CKD-EPI Creatinine Equation (2020) Performed By: #### L 500.4050, L100.0500 ####[facility] [address] [place], [address] Globulin (S) [Mass/Vol] 3.0 g/dL Normal 2.2-4.2 [facility] Comment on above: Performed By: #### L 500.4050, L100.0500 ####[facility] [address] [place], [address] Glucose [Mass/Vol] 96 mg/dL Normal 70-99 [facility] Comment on above: Performed By: #### L 500.4050, L100.0500 ####[facility] [address] [place], [address] Potassium [Moles/Vol] 4.3 mmol/L Normal 3.3-5.[address] [facility] Comment on above: Performed By: #### L 500.4050, L100.0500 ####[facility] [address] [place], [address] Sodium [Moles/Vol] 138 mmol/L Normal 133-145 [facility] Comment on above: Performed By: #### L 500.4050, L100.0500 ####[facility] [address] [place] [place], [address] T PROT 6.5 g/dL Normal 5.9-8.4 [facility] Comment on above: Performed By: #### L 500.4050, L100.0500 ####[facility] [address] [place], [address] Urea nitrogen [Mass/Vol] 46 mg/dL High 4-19 [facility] Comment on above: Performed By: #### L 500.4050, L100.0500 ####[facility] [address] [place], [address] Laboratory - Chemistry and C hemistry - challengeOrdered By: Lv Moreno on 04-21-2025 AST [Catalytic activity/Vol] 59 U/L High <38 [facility] Serum globulin measurementOr dered By: Lv Moreno 04-21-2025 Globulin (S) [Mass/Vol] 3.0 g/dL 2.2-4.2 [facility] Serum or plasma alanine clay otransferase (ALT) measurementOrdered By: Lv Moreno on 04-21-2025 ALT [Catalytic activity/Vol] 33 U/L <47 [facility] Serum or plasma albumin geena urement (mass/volume)Ordered By: Lv Moreno 04-21-2025 Albumin [Mass/Vol] 3.5 g/dL 3.4-4.8 [facility] Serum or plasma albumin/glob ulin mass ratioOrdered By: Lv Moreno 04-21-2025 Albumin/Globulin [Mass ratio] 1.2 {ratio} 0.9-2.4 [facility] Serum or plasma alkaline camila sphatase measurementOrdered By: Lv Moreno 04-21-2025 ALP [Catalytic activity/Vol] 246 U/L High 40-129 [facility] Total proteinOrdered By: Lv Moreno 04-21-2025 Protein [Mass/Vol] 6.5 g/dL 5.9-8.4 [facility] Basic Metabolic Profile (BMP )on 04-20-2025 BUN/CRE 21.3 RATIO High 10-20 [facility] Comment on above: Performed By: #### L 100.0100, L500.2500 ####[facility] [address] [place], [address] Calcium [Mass/Vol] 8.8 mg/dL Normal 7.6-11.0 [facility] Comment on above: Performed By: #### L 100.0100, L500.2500 ####[facility] [address] [place], [address] Chloride [Moles/Vol] 103 mmol/L Normal 98-108 [facility] Comment on above: Performed By: #### L 100.0100, L500.2500 ####[facility] [address] [place], [address] CO2 [Moles/Vol] 23.8 mmol/L Normal 21.0-32.0 [facility] Comment on above: Performed By: #### L 100.0100, L500.2500 ####[facility] [address] [place], [address] Creatinine [Mass/Vol] 2.08 mg/dL High 0.70-1.[address] [facility] Comment on above: Performed By: #### L 100.0100, L500.2500 ####[facility] [address] [place], [address] ECRCL 26.91 ml/min Low 50-250 [facility] Comment on above: Performed By: #### L 100.0100, L500.2500 ####[facility] [address] [place], [address] GAP 13 Normal 5-15 [facility] Comment on above: Performed By: #### L 100.0100, L500.2500 ####[facility] [address] [place], [address] GFR/1.73 sq M.predicted among non-blacks MDRD (S/P/Bld) [Vol rate/Area] 31 mL/min/{1.73_m2} Low >60 [facility] Comment on above: Result Comment: mL/m in/1.73m2 CKD-EPI Creatinine Equation (2020) Performed By: #### L 100.0100, L500.2500 ####[facility] [address] [place], [address] Glucose [Mass/Vol] 95 mg/dL Normal 70-99 [facility] Comment on above: Performed By: #### L 100.0100, L500.2500 ####[facility] [address] [place], [address] Potassium [Moles/Vol] 4.4 mmol/L Normal 3.3-5.[address] [facility] Comment on above: Performed By: #### L 100.0100, L500.2500 ####[facility] [address] [place], [address] Sodium [Moles/Vol] 140 mmol/L Normal 133-145 [facility] Comment on above: Performed By: #### L 100.0100, L500.2500 ####[facility] [address] [place], [address] Urea nitrogen [Mass/Vol] 44 mg/dL High 4-19 [facility] Comment on above: Performed By: #### L 100.0100, L500.2500 ####[facility] [address] [place], [address] Bedside Glucoseon 04-20-2025 FINGERSTICK GLU 145 mg/dL High 74-106 [facility] Comment on above: Result Comment: JOHNNY SEEMAENT OF PATIENT CARE PER NURSING PROTOCOL Performed By: #### L 501.080 ####[facility] [address] [place], [address] FINGERSTICK GLU 128 mg/dL High 74-106 [facility] Comment on above: Result Comment: JOHNNY GEMENT OF PATIENT CARE PER NURSING PROTOCOL Performed By: #### L 501.080 ####[facility] [address] [place], [address] FINGERSTICK GLU 95 mg/dL Normal 74-106 [facility] Comment on above: Result Comment: JOHNNY GEMENT OF PATIENT CARE PER NURSING PROTOCOL Performed By: #### L 501.080 ####[facility] [address] [place], [address] FINGERSTICK GLU 97 mg/dL Normal 74-106 [facility] Comment on above: Result Comment: JOHNNY GEMENT OF PATIENT CARE PER NURSING PROTOCOL Performed By: #### L 501.080 ####[facility] [address] [place], [address] FINGERSTICK GLU 89 mg/dL Normal 74-106 [facility] Comment on above: Result Comment: JOHNNY GEMENT OF PATIENT CARE PER NURSING PROTOCOL Performed By: #### L 501.080 ####[facility] [address] [place], [address] CBC W/Diff, Automatedon 10-0 1-2024 Absolute Lymph 0.72 X10 3/uL Low 0.83-4.51 [facility] Comment on above: Performed By: #### L 100.0100, L500.2500 ####[facility] [address] [place], [address] Absolute Neut 3.5 X10 3/uL Normal 2.0-7.7 [facility] Comment on above: Performed By: #### L 100.0100, L500.2500 ####[facility] [address] [place], [address] Basophils/100 WBC (Bld) 1.2 % High 0-1 [facility] Comment on above: Performed By: #### L 100.0100, L500.2500 ####[facility] [address] [place], [address] Eosinophils/100 WBC (Bld) 0.6 % Normal 0-5 [facility] Comment on above: Performed By: #### L 100.0100, L500.2500 ####[facility] [address] [place], [address] Erythrocyte distribution width (RBC) [Ratio] 19.9 % High 11.6-14.6 [facility] Comment on above: Performed By: #### L 100.0100, L500.2500 ####[facility] [address] [place], [address] Hematocrit (Bld) [Volume fraction] 41.9 % Normal 40-54 [facility] Comment on above: Performed By: #### L 100.0100, L500.2500 ####[facility] [address] [place], [address] Hemoglobin (Bld) [Mass/Vol] 14.1 g/dL Normal 13.0-16.5 [facility] Comment on above: Performed By: #### L 100.0100, L500.2500 ####[facility] [address] [place], [address] IG% 1.000 High 0.0-0.9 [facility] Comment on above: Result Comment: IG% - Immature Granulocytes (promyelocytes, myelocytes andmetamyelocytes) > 1% indicates that a LEFT SHIFT is Present. Performed By: #### L 100.0100, L500.2500 ####[facility] [address] [place], [address] Lymphocytes/100 WBC (Bld) 14.9 % Low 19-41 [facility] Comment on above: Performed By: #### L 100.0100, L500.2500 ####[facility] [address] [place], [address] MCH (RBC) [Entitic mass] 29.2 pg Normal 27.0-32.0 [facility] Comment on above: Performed By: #### L 100.0100, L500.2500 ####[facility] [address] [place], [address] MCHC (RBC) [Mass/Vol] 33.7 g/dL Normal 32-[address] [facility] Comment on above: Performed By: #### L 100.0100, L500.2500 ####[facility] [address] [place], [address] MCV (RBC) [Entitic vol] 86.7 fL Normal 80-94 [facility] Comment on above: Performed By: #### L 100.0100, L500.2500 ####[facility] [address] [place], [address] Monocytes/100 WBC (Bld) 9.3 % Normal 0-10 [facility] Comment on above: Performed By: #### L 100.0100, L500.2500 ####[facility] [address] [place], [address] Neutrophils/100 WBC (Bld) 73.0 % High 47-70 [facility] Comment on above: Performed By: #### L 100.0100, L500.2500 ####[facility] [address] [place], [address] Nucleated RBC (Bld) [#/Vol] 0 10*3/uL Normal 0-5 [facility] Comment on above: Performed By: #### L 100.0100, L500.2500 ####[facility] [address] [place], [address] Platelet mean volume (Bld) [Entitic vol] 10.3 fL Normal 6.2-12.0 [facility] Comment on above: Performed By: #### L 100.0100, L500.2500 ####[facility] [address] [place], [address] Platelets (Bld) [#/Vol] 155 10*3/uL Normal 150-450 [facility] Comment on above: Performed By: #### L 100.0100, L500.2500 ####[facility] [address] [place], [address] RBC (Bld) [#/Vol] 4.83 10*6/uL Normal 4.6-6.2 [facility] Comment on above: Performed By: #### L 100.0100, L500.2500 ####[facility] [address] [place], [address] RDW SD 59.5 fl High 35.1-43.9 [facility] Comment on above: Performed By: #### L 100.0100, L500.2500 ####[facility] [address] [place], [address] WBC (Bld) [#/Vol] 4.8 10*3/uL Normal 4.4-11.0 [facility] Comment on above: Performed By: #### L 100.0100, L500.2500 ####[facility] [address] [place], [address] COVID 19 AG RAPID (RN DENYC T)on 04-20-2025 SARS-CoV-2 (COVID-19) RNA SUDEEP+probe Ql (Unsp spec) Normal [facility] Comment on above: Performed By: #### M 100.505 ####[facility] [address] [place], [address] COVID-19 virus antigen assay Ordered By: Lv Moreno on 04-20-2025 SARS-CoV-2 (COVID-19) Ag IA.rapid Ql (Resp) SARS-CoV-2 (COVID 19) Abnormal [facility] RESPIRATORY PANEL MOLECULARo n 04-20-2025 RP PANEL Normal [facility] Comment on above: Performed By: #### M 100.638 ####[facility] [address] [place], [address] Respiratory pathogens detect ion panel by molecular detection methodOrdered By: Lv Moreno on 04-20-2025 Respiratory pathogens DNA and RNA panel SUDEEP+probe (Resp) [facility] Abdomen Single Viewon 2024 Abdomen Single View Normal [facility] Bedside Glucoseon 04-19-2025 FINGERSTICK GLU 112 mg/dL High 74-106 [facility] Comment on above: Result Comment: JOHNNY GEMENT OF PATIENT CARE PER NURSING PROTOCOL Performed By: #### L 501.080 ####[facility] [address] [place], [address] FINGERSTICK GLU 77 mg/dL Normal 74-106 [facility] Comment on above: Result Comment: JOHNNY GEMENT OF PATIENT CARE PER NURSING PROTOCOL Performed By: #### L 501.080 ####[facility] [address] [place], [address] FINGERSTICK GLU 90 mg/dL Normal 74-106 [facility] Comment on above: Result Comment: JOHNNY GEMENT OF PATIENT CARE PER NURSING PROTOCOL Performed By: #### L 501.080 ####[facility] [address] [place], [address] FINGERSTICK GLU 87 mg/dL Normal 74-106 [facility] Comment on above: Result Comment: JOHNNY GEMENT OF PATIENT CARE PER NURSING PROTOCOL Performed By: #### L 501.080 ####[facility] [address] [place], [address] Chest PA and Lateralon 04-19 Chest PA and Lateral Normal [facility] de[facility]dered By: Lv Moreno on 04-19-2025 Glucose [Mass/Vol] 112 mg/dL High 74-106 [facility] Comment on above: MANAGEMENT OF PATIEN T CARE PER NURSING PROTOCOL Glucose [Mass/Vol] 87 mg/dL 74-106 [facility] Comment on above: MANAGEMENT OF PATIEN T CARE PER NURSING PROTOCOL Bedside Glucoseon 04-18-2025 FINGERSTICK GLU 145 mg/dL High 74-106 [facility] Comment on above: Result Comment: JOHNNY GEMENT OF PATIENT CARE PER NURSING PROTOCOL Performed By: #### L 501.080 ####[facility] [address] [facility] [address] FINGERSTICK GLU 148 mg/dL High -106 [facility] Comment on above: Result Comment: JOHNNY GEMENT OF PATIENT CARE PER NURSING PROTOCOL Performed By: #### L 501.080 ####[facility] [address] [facility] [address] FINGERSTICK GLU 139 mg/dL High -106 [facility] Comment on above: Result Comment: JOHNNY GEMENT OF PATIENT CARE PER NURSING PROTOCOL Performed By: #### L 501.080 ####[facility] [address] [place], [address] FINGERSTICK GLU 95 mg/dL Normal -[address] [place] [address] Comment on above: Result Comment: JOHNNY GEMENT OF PATIENT CARE PER NURSING PROTOCOL Performed By: #### L 501.080 ####[facility] [address] [place], [address] Bedside Glucoseon 04-17-2025 FINGERSTICK GLU 154 mg/dL High 74-106 [facility] Comment on above: Result Comment: JOHNNY GEMENT OF PATIENT CARE PER NURSING PROTOCOL Performed By: #### L 501.080 ####[facility] [address] [facility] [address] FINGERSTICK GLU 114 mg/dL High -106 [facility] Comment on above: Result Comment: JOHNNY GEMENT OF PATIENT CARE PER NURSING PROTOCOL Performed By: #### L 501.080 ####[facility] [address] [place], [address] FINGERSTICK GLU 136 mg/dL High 74-106 [facility] Comment on above: Result Comment: JOHNNY GEMENT OF PATIENT CARE PER NURSING PROTOCOL Performed By: #### L 501.080 ####[facility] [address] [place], [address] FINGERSTICK GLU 128 mg/dL High 74-106 [facility] Comment on above: Result Comment: JOHNNY GEMENT OF PATIENT CARE PER NURSING PROTOCOL Performed By: #### L 501.080 ####[facility] [address] [place], [address] Bedside Glucoseon 04-16-2025 FINGERSTICK GLU 167 mg/dL High -106 [facility] Comment on above: Result Comment: JOHNNY GEMENT OF PATIENT CARE PER NURSING PROTOCOL Performed By: #### L 501.080 ####[facility] [address] [place], [address] FINGERSTICK GLU 127 mg/dL High 74-106 [facility] Comment on above: Result Comment: JOHNNY GEMENT OF PATIENT CARE PER NURSING PROTOCOL Performed By: #### L 501.080 ####[facility] [address] [place], [address] FINGERSTICK GLU 164 mg/dL High 74-106 [facility] Comment on above: Result Comment: JOHNNY GEMENT OF PATIENT CARE PER NURSING PROTOCOL Performed By: #### L 501.080 ####[facility] [address] [place], [address] FINGERSTICK GLU 131 mg/dL High 74-106 [facility] Comment on above: Result Comment: JOHNNY GEMENT OF PATIENT CARE PER NURSING PROTOCOL Performed By: #### L 501.080 ####[facility] [address] [place], [address] Absolute lymphocyte countOrd ered By: Lv Moreno on 04-15-2025 Lymphocytes Auto (Unsp spec) [#/Vol] 0.80 10*3/uL Low 0.83-4.51 [facility] Absolute neutrophil countOrd ered By: Lv Moreno on 04-15-2025 Neutrophils (Bld) [#/Vol] 2.4 10*3/uL 2.0-7.7 [facility] Anion gap in Serum or Plasma Ordered By: Lv Josh on 04-15-2025 Anion gap [Moles/Vol] 13 mmol/L 5-[address] [facility] Automated lymphocyte count a s percentage of total leukocytesOrdered By: Lv Josh on 04-15-2025 Lymphocytes/100 WBC Auto (Unsp spec) 19.4 % - [facility] BUN/creatinine ratioOrdered By: Lv Moreno on 04-15-2025 Urea nitrogen/Creatinine [Mass ratio] 21.2 mg/mg High 10- [facility] Basic Metabolic Profile (BMP )on 04-15-2025 BUN/CRE 21.2 RATIO High 10- [facility] Comment on above: Performed By: #### L 500.2500, L100.0100 ####[facility] [address] [place], [address] Calcium [Mass/Vol] 8.5 mg/dL Normal 7.6-11.0 [facility] Comment on above: Performed By: #### L 500.2500, L100.0100 ####[facility] [address] [place], [address] Chloride [Moles/Vol] 103 mmol/L Normal 98-108 [facility] Comment on above: Performed By: #### L 500.2500, L100.0100 ####[facility] [address] [place], [address] CO2 [Moles/Vol] 22.0 mmol/L Normal 21.0-32.0 [facility] Comment on above: Performed By: #### L 500.2500, L100.0100 ####[facility] [address] [place], [address] Creatinine [Mass/Vol] 2.11 mg/dL High 0.70-1.[address] [facility] Comment on above: Performed By: #### L 500.2500, L100.0100 ####[facility] [address] [place], [address] ECRCL 26.52 ml/min Low 50-250 [facility] Comment on above: Performed By: #### L 500.2500, L100.0100 ####[facility] [address] [place], [address] GAP 13 Normal 5-15 [facility] Comment on above: Performed By: #### L 500.2500, L100.0100 ####[facility] [address] [place], [address] GFR/1.73 sq M.predicted among non-blacks MDRD (S/P/Bld) [Vol rate/Area] 30 mL/min/{1.73_m2} Low >60 [facility] Comment on above: Result Comment: mL/m in/1.73m2 CKD-EPI Creatinine Equation (2020) Performed By: #### L 500.2500, L100.0100 ####[facility] [address] [place], [address] Glucose [Mass/Vol] 103 mg/dL High 70-99 [facility] Comment on above: Performed By: #### L 500.2500, L100.0100 ####[facility] [address] [place], [address] Potassium [Moles/Vol] 3.5 mmol/L Normal 3.3-5.[address] [facility] Comment on above: Performed By: #### L 500.2500, L100.0100 ####[facility] [address] [place], [address] Sodium [Moles/Vol] 139 mmol/L Normal 133-145 [facility] Comment on above: Performed By: #### L 500.2500, L100.0100 ####[facility] [address] [place], [address] Urea nitrogen [Mass/Vol] 45 mg/dL High 4-19 [facility] Comment on above: Performed By: #### L 500.2500, L100.0100 ####[facility] [address] [place], [address] Basophil percentageOrdered B y: Lv Josh on 04-15-2025 Basophils/100 WBC (Bld) 1.7 % High 0-1 [facility] Bedside Glucoseon 04-15-2025 FINGERSTICK GLU 178 mg/dL High 74-106 [facility] Comment on above: Result Comment: JOHNNY GEMENT OF PATIENT CARE PER NURSING PROTOCOL Performed By: #### L 501.080 ####[facility] [address] [place], [address] FINGERSTICK GLU 159 mg/dL High 74-106 [facility] Comment on above: Result Comment: JOHNNY GEMENT OF PATIENT CARE PER NURSING PROTOCOL Performed By: #### L 501.080 ####[facility] [address] [place], [address] FINGERSTICK GLU 169 mg/dL High 74-106 [facility] Comment on above: Result Comment: JOHNNY GEMENT OF PATIENT CARE PER NURSING PROTOCOL Performed By: #### L 501.080 ####[facility] [address] [place], [address] FINGERSTICK GLU 108 mg/dL High 74-106 [facility] Comment on above: Result Comment: JOHNNY GEMENT OF PATIENT CARE PER NURSING PROTOCOL Performed By: #### L 501.080 ####[facility] [address] [place], [address] CBC W/Diff, Automatedon 09- Absolute Lymph 0.80 X10 3/uL Low 0.83-4.51 [facility] Comment on above: Performed By: #### L 500.2500, L100.0100 ####[facility] [address] [place], [address] Absolute Neut 2.4 X10 3/uL Normal 2.0-7.7 [facility] Comment on above: Performed By: #### L 500.2500, L100.0100 ####[facility] [address] [place], [address] Basophils/100 WBC (Bld) 1.7 % High 0-1 [facility] Comment on above: Performed By: #### L 500.2500, L100.0100 ####[facility] [address] [place], [address] Eosinophils/100 WBC (Bld) 7.3 % High 0-5 [facility] Comment on above: Performed By: #### L 500.2500, L100.0100 ####[facility] [address] [place], [address] Erythrocyte distribution width (RBC) [Ratio] 19.0 % High 11.6-14.6 [facility] Comment on above: Performed By: #### L 500.2500, L100.0100 ####[facility] [address] [place], [address] Hematocrit (Bld) [Volume fraction] 39.4 % Low 40-54 [facility] Comment on above: Performed By: #### L 500.2500, L100.0100 ####[facility] [address] [place], [address] Hemoglobin (Bld) [Mass/Vol] 14.0 g/dL Normal 13.0-16.5 [facility] Comment on above: Performed By: #### L 500.2500, L100.0100 ####[facility] [address] [place], [address] IG% 0.500 Normal 0.0-0.9 [facility] Comment on above: Result Comment: IG% - Immature Granulocytes (promyelocytes, myelocytes andmetamyelocytes) > 1% indicates that a LEFT SHIFT is Present. Performed By: #### L 500.2500, L100.0100 ####[facility] [address] [place], [address] Lymphocytes/100 WBC (Bld) 19.4 % Normal 19-41 [facility] Comment on above: Performed By: #### L 500.2500, L100.0100 ####[facility] [address] [place], [address] MCH (RBC) [Entitic mass] 30.4 pg Normal 27.0-32.0 [facility] Comment on above: Performed By: #### L 500.2500, L100.0100 ####[facility] [address] [place], [address] MCHC (RBC) [Mass/Vol] 35.5 g/dL Normal 32-[address] [facility] Comment on above: Performed By: #### L 500.2500, L100.0100 ####[facility] [address] [place], [address] MCV (RBC) [Entitic vol] 85.7 fL Normal 80-94 [facility] Comment on above: Performed By: #### L 500.2500, L100.0100 ####[facility] [address] [place], [address] Monocytes/100 WBC (Bld) 12.1 % High 0-10 [facility] Comment on above: Performed By: #### L 500.2500, L100.0100 ####[facility] [address] [place], [address] Neutrophils/100 WBC (Bld) 59.0 % Normal 47-70 [facility] Comment on above: Performed By: #### L 500.2500, L100.0100 ####[facility] [address] [place], [address] Nucleated RBC (Bld) [#/Vol] 0 10*3/uL Normal 0-5 [facility] Comment on above: Performed By: #### L 500.2500, L100.0100 ####[facility] [address] [place], [address] Platelet mean volume (Bld) [Entitic vol] 10.1 fL Normal 6.2-12.0 [facility] Comment on above: Performed By: #### L 500.2500, L100.0100 ####[facility] [address] [place], [address] Platelets (Bld) [#/Vol] 143 10*3/uL Low 150-450 [facility] Comment on above: Performed By: #### L 500.2500, L100.0100 ####[facility] [address] [place], [address] RBC (Bld) [#/Vol] 4.60 10*6/uL Normal 4.6-6.2 [facility] Comment on above: Performed By: #### L 500.2500, L100.0100 ####[facility] [address] [place], [address] RDW SD 58.2 fl High 35.1-43.9 [facility] Comment on above: Performed By: #### L 500.2500, L100.0100 ####[facility] [address] [place], [address] WBC (Bld) [#/Vol] 4.1 10*3/uL Low 4.4-11.0 [facility] Comment on above: Performed By: #### L 500.2500, L100.0100 ####[facility] [address] [place], [address] Carbon dioxide, total [Moles /volume] in Central venous bloodOrdered By: Lv Moreno on 04-15-2025 CO2 [Moles/Vol] 22.0 mmol/L 21.0-32.0 [facility] Chloride assayOrdered By: Koffi Moreno on 04-15-2025 Chloride [Moles/Vol] 103 mmol/L 98-108 [facility] Eosinophil percentageOrdered By: Lv Moreno on 04-15-2025 Eosinophils/100 WBC (Bld) 7.3 % High 0-5 [facility] Erythrocyte distribution wid th ratioOrdered By: Lv Moreno on 04-15-2025 Erythrocyte distribution width (RBC) [Ratio] 19.0 % High 11.6-14.6 [facility] Erythrocyte distribution wid th standard deviationOrdered By: Lv Moreno 04-15-2025 Erythrocyte distribution width (RBC) [Ratio] 58.2 fl High 35.1-43.9 [facility] Glomerular filtration rate ( GFR) estimation/1.73 sq m using serum, plasma, or whole bOrdered By: Lv Moreno on 04-15-2025 GFR/1.73 sq M.predicted among non-blacks MDRD (S/P/Bld) [Vol rate/Area] 30 mL/min/{1.73_m2} Low >60 [facility] Comment on above: mL/min/1.73m2 CKD-EP I Creatinine Equation (2020) Hematocrit Auto (Bld) [Volum e fraction]Ordered By: Lv Moreno on 04-15-2025 Hematocrit (Bld) [Volume fraction] 39.4 % Low 40-54 [facility] Hemoglobin measurementOrdere d By: Lv Moreno 04-15-2025 Hemoglobin (Bld) [Mass/Vol] 14.0 g/dL 13.0-16.5 [facility] Immature granulocytes/100 WB C Auto (Bld)Ordered By: Lv Moreno 04-15-2025 Immature granulocytes/100 WBC (Bld) 0.500 % 0.0-0.9 [facility] Comment on above: IG% - Immature Granu locytes (promyelocytes, myelocytes and metamyelocytes) > 1% indicates that a LEFT SHIFT is Present. L509.6001on 04-15-2025 CORTISOL 19.20 ug/dL High 6.02-18.40 [facility] Comment on above: Order Comment: Must be drawn 30-60 min AFTER cosyntropin admin. Performed By: #### L 509.6001 ####[facility] [address] [place], [place], [address] CORTISOL 8.86 ug/dL Normal 6.02-18.40 [facility] Comment on above: Order Comment: must be performed shortly BEFORE cosyntropin admin Performed By: #### L 509.6001 ####[facility] [address] [place], [place], [address] MCV (mean corpuscular volume ) determinationOrdered By: Lv Moreno on 04-15-2025 MCV (RBC) [Entitic vol] 85.7 fL 80-94 [facility] Mean corpuscular hemoglobin (MCH) determinationOrdered By: Lv Moreno on 04-15-2025 MCH (RBC) [Entitic mass] 30.4 pg 27.0-32.0 [facility] Mean corpuscular hemoglobin concentration (MCHC) determinationOrdered By: Lv Moreno on 04-15-2025 MCHC (RBC) [Mass/Vol] 35.5 g/dL 32-[address] [facility] Mean platelet volume determi nationOrdered By: Lv Moreno on 04-15-2025 Platelet mean volume (Bld) [Entitic vol] 10.1 fL 6.2-12.0 [facility] Monocyte percentageOrdered B y: Lv Moreno on 04-15-2025 Monocytes/100 WBC (Bld) 12.1 % High 0-10 [facility] Neutrophil percentageOrdered By: Lv Moreno on 04-15-2025 Neutrophils/100 WBC (Bld) 59.0 % 47-70 [facility] Nucleated red blood cell per centageOrdered By: Lv Moreno on 09-26-2025 Nucleated RBC/100 WBC (Bld) [Ratio] 0 % 0-5 [facility] Platelet countOrdered By: Koffi Moreno on 04-15-2025 Platelets (Bld) [#/Vol] 143 10*3/uL Low 150-450 [facility] Potassium measurement (mass/ volume)Ordered By: Lv Moreno on 04-15-2025 Potassium (Unsp spec) [Mass/Vol] 3.5 mmol/L 3.3-5.1 [facility] RBC Auto (Bld) [#/Vol]Ordere d By: Lv Moreno on 04-15-2025 RBC (Bld) [#/Vol] 4.60 10*6/uL 4.6-6.2 [facility] Serum creatinine measurement (mass/volume)Ordered By: Lv Moreno on 04-15-2025 Creatinine [Mass/Vol] 2.11 mg/dL High 0.70-1.[address] [facility] Serum glucose measurement (m ass/volume)Ordered By: Lv Moreno on 04-15-2025 Glucose [Mass/Vol] 103 mg/dL High 70-99 [facility] Serum or plasma calcium geena urement (mass/volume)Ordered By: Lv Moreno on 04-15-2025 Calcium [Mass/Vol] 8.5 mg/dL 7.6-11.0 [facility] Serum or plasma cortisol meenakshi surement (mass/volume)Ordered By: Lv Moreno on 04-15-2025 Cortisol [Mass/Vol] 19.20 ug/dL High 6.02-18.40 [facility] Serum or plasma urea nitroge n measurement (mass/volume)Ordered By: Lv Moreno on 04-15-2025 Urea nitrogen [Mass/Vol] 45 mg/dL High 4-19 [facility] Sodium levelOrdered By: Lv Moreno on 04-15-2025 Sodium [Moles/Vol] 139 mmol/L 133-145 [facility] White blood cell (WBC) count Ordered By: Lv Moreno on 04-15-2025 WBC (Bld) [#/Vol] 4.1 10*3/uL Low 4.4-11.0 [facility] Bedside Glucoseon 04-14-2025 FINGERSTICK GLU 115 mg/dL High 74-106 [facility] Comment on above: Result Comment: JOHNNY GEMENT OF PATIENT CARE PER NURSING PROTOCOL Performed By: #### L 501.080 ####[facility] [address] [place], [address] FINGERSTICK GLU 84 mg/dL Normal 74-106 [facility] Comment on above: Result Comment: JOHNNY GEMENT OF PATIENT CARE PER NURSING PROTOCOL Performed By: #### L 501.080 ####[facility] [address] [place], [address] FINGERSTICK GLU 101 mg/dL Normal 74-106 [facility] Comment on above: Result Comment: JOHNNY GEMENT OF PATIENT CARE PER NURSING PROTOCOL Performed By: #### L 501.080 ####[facility] [address] [place], [address] FINGERSTICK GLU 130 mg/dL High 74-106 [facility] Comment on above: Result Comment: JOHNNY GEMENT OF PATIENT CARE PER NURSING PROTOCOL Performed By: #### L 501.080 ####[facility] [address] [place], [address] FINGERSTICK GLU 80 mg/dL Normal 74-106 [facility] Comment on above: Result Comment: JOHNNY GEMENT OF PATIENT CARE PER NURSING PROTOCOL Performed By: #### L 501.080 ####[facility] [address] [place], [address] FINGERSTICK GLU 72 mg/dL Low 74-106 [facility] Comment on above: Result Comment: JOHNNY GEMENT OF PATIENT CARE PER NURSING PROTOCOL Performed By: #### L 501.080 ####[facility] [address] [place], [address] FINGERSTICK GLU 113 mg/dL High 74-106 [facility] Comment on above: Result Comment: JOHNNY GEMENT OF PATIENT CARE PER NURSING PROTOCOL Performed By: #### L 501.080 ####[facility] [address] [place], [address] Bedside Glucoseon 04-13-2025 FINGERSTICK GLU 114 mg/dL High 74-106 [facility] Comment on above: Result Comment: JOHNNY GEMENT OF PATIENT CARE PER NURSING PROTOCOL Performed By: #### L 501.080 ####[facility] [address] [place], [address] FINGERSTICK GLU 96 mg/dL Normal 74-106 [facility] Comment on above: Result Comment: JOHNNY GEMENT OF PATIENT CARE PER NURSING PROTOCOL Performed By: #### L 501.080 ####[facility] [address] [place], [address] FINGERSTICK GLU 85 mg/dL Normal 74-106 [facility] Comment on above: Result Comment: JOHNNY GEMENT OF PATIENT CARE PER NURSING PROTOCOL Performed By: #### L 501.080 ####[facility] [address] [place], [address] FINGERSTICK GLU 117 mg/dL High 74-106 [facility] Comment on above: Result Comment: JOHNNY GEMENT OF PATIENT CARE PER NURSING PROTOCOL Performed By: #### L 501.080 ####[facility] [address] [place], [address] FINGERSTICK GLU 70 mg/dL Low 74-106 [facility] Comment on above: Result Comment: JOHNNY GEMENT OF PATIENT CARE PER NURSING PROTOCOL Performed By: #### L 501.080 ####[facility] [address] [place], [address] FINGERSTICK GLU 66 mg/dL Low 74-106 [facility] Comment on above: Result Comment: JOHNNY GEMENT OF PATIENT CARE PER NURSING PROTOCOL Performed By: #### L 501.080 ####[facility] [address] [place], [address] FINGERSTICK GLU 54 mg/dL Low 74-106 [facility] Comment on above: Result Comment: JOHNNY GEMENT OF PATIENT CARE PER NURSING PROTOCOL Performed By: #### L 501.080 ####[facility] [address] [facility] [address] Brain/Head without Contrasto n 04-13-2025 Brain/Head without Contrast Normal [facility] Emergency Department Summary on 04-13-2025 Emergency Department Summary Normal [facility] Glucose measurement at [facility] deOrdered By: Kian Simons on 04-13-2025 Glucose [Mass/Vol] 117 mg/dL High 74-106 [facility] Comment on above: MANAGEMENT OF PATIEN T CARE PER NURSING PROTOCOL Shoulder min 2 Viewson 04-13 Shoulder min 2 Views Normal [facility] Sinus/Facial Boneon 04-13-20 Sinus/Facial Bone Normal [facility] Spine Cervical without Contr ason 04-13-2025 Spine Cervical without Contras Normal [facility] Bedside Glucoseon 04-12-2025 FINGERSTICK GLU 72 mg/dL Low 74-106 [facility] Comment on above: Result Comment: JOHNNY GEMENT OF PATIENT CARE PER NURSING PROTOCOL Performed By: #### L 501.080 ####[facility] [address] [facility] [address] FINGERSTICK GLU 81 mg/dL Normal 74-106 [facility] Comment on above: Result Comment: JOHNNY GEMENT OF PATIENT CARE PER NURSING PROTOCOL Performed By: #### L 501.080 ####[facility] [address] [facility] [address] FINGERSTICK GLU 96 mg/dL Normal 74-106 [facility] Comment on above: Result Comment: JOHNNY GEMENT OF PATIENT CARE PER NURSING PROTOCOL Performed By: #### L 501.080 ####[facility] [address] [facility] [address] FINGERSTICK GLU 85 mg/dL Normal 74-106 [facility] Comment on above: Result Comment: JOHNNY GEMENT OF PATIENT CARE PER NURSING PROTOCOL Performed By: #### L 501.080 ####[facility] [address] [place], [address] FINGERSTICK GLU 58 mg/dL Low 74-106 [facility] Comment on above: Result Comment: JOHNNYCarlos STEPHENSONTRENT OF PATIENT CARE PER NURSING PROTOCOL Performed By: #### L 501.080 ####[facility] [address] [place], [address] Venous Duplex US - Alessio Extre mon 04-12-2025 Venous Duplex US - Alessio Extrem Normal [facility] Venous Duplex US, Unilateral on 04-12-2025 Venous Duplex US, Unilateral Normal [facility] Venous duplex ultrasound rep ortOrdered By: Stephon Ferguson on 04-12-2025 US Vein [facility] [address] [place] [address] Venous Duplex US - Alessio Extrem 04/12/25 1126 MR#: [id number] Acct: [id number] Name: MEGAN NASCIMENTO Rep #:[id number] : 1940 84 From: Stephon Ferguson MD Attending Dr: Dr. Lv Moreno MD Status: REG CLI Ordering Dr: Lv Moreno MD Date: Location: [facility] Sex: M C Admitted: Reason [...] Rigoberto Durand Performed By: Catrachito Pedraza, Larissa 04/12/25 1455 Date _ Stephon Ferguson MD CC: Dr. Rigoberto Durand MD; Dr. Lv Moreno MD ~ Date Dictated: 04/12/25 1126 Date Transcribed: 04/12/251454 Tobacco Grower: Signed [facility] Other Phone: US Vein [facility] [address] [place] [address] Venous Duplex US, Unilateral 04/12/25 1111 MR#: [id number] Acct: [id number] Name: MEGAN NASCIMENTO Rep #:[id number] : 1940 84 From: Stephon Ferguson MD Attending Dr: Dr. Lv Moreno MD Status: REG CLI Ordering Dr: Lv Moreno MD Date: Location: CVS Sex: M C Admitted: Reason For Study Reason For Study: Left arm swelling Left Proximal Left jugular vein is spontaneous, widely patent, phasic, with nointraluminal echogenicity noted. Left subclavianvein is spontaneous, widely patent, phasic, with nointraluminal echogenicity noted. Left Arm Left axillary vein is spontaneous, patent, phasic, competent, compressible and demonstrates augmentation. Left brachial vein is compressible. Left cephalic vein is compressible. Left basilic vein is compressible. Left Lower Arm Left radial vein is compressible. Left ulnar veinis compressible. Procedure This was a unilateral left [...] Catrachito Pedraza, Larissa ??? 04/12/25 1451 Date _ Stephon Ferguson MD CC: Dr. Rigoberto Durand MD; Dr. Lv Moreno MD ~ Date Dictated: 04/12/25 1111 Date Transcribed: 04/12/25 1451 Tobacco Grower: Signed [facility] Other Phone: 36on 04-11-2025 36 Spoke with front office secretary. Pts ex- Zuleyka called with some concerns about Megan who is admitted at [facility]. I called Zuleyka [phone]. She asked that I speak with her daughter who is also on pts contact list. Patient was taken by EMS to [facility] for multiple falls and debilitation. Currently doing PT. They are concerned with his recent drop in EF that his entresto being held. States Cr was elevated and he had low BP yesterday. I told her a lot of times they will wait for kidney function to come down prior to restarting med in hospital or leaving it to our cardio team to restart in f/u. Will also want to make sure his BP's are stable. She also notes that he has an IV in his L arm and today it is double the size of his right. Will address with his nurse. Also reviewed they can request cardio consult to help manage his HF and hopefully help alleviate some of their concerns as he is not currently under our care. She was very thankful for the call and verbalized understanding. Normal [facility] Basic Metabolic Profile (BMP )on 04-11-2025 BUN/CRE 18.2 RATIO Normal 10-20 [facility] Comment on above: Performed By: #### L 500.2500 ####[facility] [address] [place], [address] Calcium [Mass/Vol] 8.8 mg/dL Normal 7.6-11.0 [facility] Comment on above: Performed By: #### L 500.2500 ####[facility] [address] [place], [address] Chloride [Moles/Vol] 101 mmol/L Normal 98-108 [facility] Comment on above: Performed By: #### L 500.2500 ####[facility] [address] [place], [address] CO2 [Moles/Vol] 23.2 mmol/L Normal 21.0-32.0 [facility] Comment on above: Performed By: #### L 500.2500 ####[facility] [address] [place], [address] Creatinine [Mass/Vol] 2.18 mg/dL High 0.70-1.[address] [facility] Comment on above: Performed By: #### L 500.2500 ####[facility] [address] [place], [address] ECRCL 25.66 ml/min Low 50-250 [facility] Comment on above: Performed By: #### L 500.2500 ####[facility] [address] [place], [address] GAP 13 Normal 5-15 [facility] Comment on above: Performed By: #### L 500.2500 ####[facility] [address] [place], [address] GFR/1.73 sq M.predicted among non-blacks MDRD (S/P/Bld) [Vol rate/Area] 29 mL/min/{1.73_m2} Low >60 [facility] Comment on above: Result Comment: mL/m in/1.73m2 CKD-EPI Creatinine Equation (2020) Performed By: #### L 500.2500 ####[facility] [address] [place], [address] Glucose [Mass/Vol] 68 mg/dL Low 70-99 [facility] Comment on above: Performed By: #### L 500.2500 ####[facility] [address] [place], [address] Potassium [Moles/Vol] 4.1 mmol/L Normal 3.3-5.[address] [facility] Comment on above: Performed By: #### L 500.2500 ####[facility] [address] [place], [address] Sodium [Moles/Vol] 138 mmol/L Normal 133-145 [facility] Comment on above: Performed By: #### L 500.2500 ####[facility] [address] [place], [address] Urea nitrogen [Mass/Vol] 40 mg/dL High 4-19 [facility] Comment on above: Performed By: #### L 500.2500 ####[facility] [address] [place], [address] Bedside Glucoseon 04-11-2025 FINGERSTICK GLU 88 mg/dL Normal 74-106 [facility] Comment on above: Result Comment: JOHNNY GEMENT OF PATIENT CARE PER NURSING PROTOCOL Performed By: #### L 501.080 ####[facility] [address] [place], [address] FINGERSTICK GLU 43 mg/dL Invalid Interpretation Code 74-106 [facility] Comment on above: Result Comment: [facility] kenan GivenMANAGEMENT OF PATIENT CARE PER NURSING PROTOCOL Performed By: #### L 501.080 ####[facility] [address] [place], [address] FINGERSTICK GLU 72 mg/dL Low 74-106 [facility] Comment on above: Result Comment: JOHNNY GEMENT OF PATIENT CARE PER NURSING PROTOCOL Performed By: #### L 501.080 ####[facility] [address] [place], [address] FINGERSTICK GLU 63 mg/dL Low 74-106 [facility] Comment on above: Result Comment: JOHNNY GEMENT OF PATIENT CARE PER NURSING PROTOCOL Performed By: #### L 501.080 ####[facility] [address] [place], [address] FINGERSTICK GLU 55 mg/dL Low 74-106 [facility] Comment on above: Result Comment: JOHNNY GEMENT OF PATIENT CARE PER NURSING PROTOCOL Performed By: #### L 501.080 ####[facility] [address] [place], [address] FINGERSTICK GLU 47 mg/dL Low 74-106 [facility] Comment on above: Result Comment: JOHNNY GEMENT OF PATIENT CARE PER NURSING PROTOCOL Performed By: #### L 501.080 ####[facility] [address] [place], [address] FINGERSTICK GLU 86 mg/dL Normal 74-106 [facility] Comment on above: Result Comment: JOHNNY GEMENT OF PATIENT CARE PER NURSING PROTOCOL Performed By: #### L 501.080 ####[facility] [address] [place], [address] FINGERSTICK GLU 71 mg/dL Low 74-106 [facility] Comment on above: Result Comment: JOHNNY GEMENT OF PATIENT CARE PER NURSING PROTOCOL Performed By: #### L 501.080 ####[facility] [address] [place], [address] Bedside Glucoseon 04-10-2025 FINGERSTICK GLU 105 mg/dL Normal 74-106 [facility] Comment on above: Result Comment: JOHNNY GEMENT OF PATIENT CARE PER NURSING PROTOCOL Performed By: #### L 501.080 ####[facility] [address] [place], [address] FINGERSTICK GLU 68 mg/dL Low 74-106 [facility] Comment on above: Result Comment: JOHNNY GEMENT OF PATIENT CARE PER NURSING PROTOCOL Performed By: #### L 501.080 ####[facility] [address] [place], [address] FINGERSTICK GLU 56 mg/dL Low 74-106 [facility] Comment on above: Result Comment: JOHNNY GEMENT OF PATIENT CARE PER NURSING PROTOCOL Performed By: #### L 501.080 ####[facility] [address] [place], [address] FINGERSTICK GLU 81 mg/dL Normal 74-106 [facility] Comment on above: Result Comment: JOHNNY GEMENT OF PATIENT CARE PER NURSING PROTOCOL Performed By: #### L 501.080 ####[facility] [address] [place], [address] FINGERSTICK GLU 72 mg/dL Low 74-106 [facility] Comment on above: Result Comment: JOHNNY GEMENT OF PATIENT CARE PER NURSING PROTOCOL Performed By: #### L 501.080 ####[facility] [address] [place], [address] Bedside Glucoseon 04-09-2025 FINGERSTICK GLU 79 mg/dL Normal 74-106 [facility] Comment on above: Result Comment: JOHNNY GEMENT OF PATIENT CARE PER NURSING PROTOCOL Performed By: #### L 501.080 ####[facility] [address] [place], [address] FINGERSTICK GLU 69 mg/dL Low 74-106 [facility] Comment on above: Result Comment: JOHNNY GEMENT OF PATIENT CARE PER NURSING PROTOCOL Performed By: #### L 501.080 ####[facility] [address] [place], [address] FINGERSTICK GLU 78 mg/dL Normal 74-106 [facility] Comment on above: Result Comment: JOHNNY GEMENT OF PATIENT CARE PER NURSING PROTOCOL Performed By: #### L 501.080 ####[facility] [address] [place], [address] FINGERSTICK GLU 82 mg/dL Normal 74-106 [facility] Comment on above: Result Comment: JOHNNY GEMENT OF PATIENT CARE PER NURSING PROTOCOL Performed By: #### L 501.080 ####[facility] [address] [place], [address] FINGERSTICK GLU 71 mg/dL Low 74-106 [facility] Comment on above: Result Comment: JOHNNY GEMENT OF PATIENT CARE PER NURSING PROTOCOL Performed By: #### L 501.080 ####[facility] [address] [place], [address] FINGERSTICK GLU 106 mg/dL Normal 74-106 [facility] Comment on above: Result Comment: JOHNNY GEMENT OF PATIENT CARE PER NURSING PROTOCOL Performed By: #### L 501.080 ####[facility] [address] [place], [address] FINGERSTICK GLU 73 mg/dL Low 74-106 [facility] Comment on above: Result Comment: JOHNNY GEMENT OF PATIENT CARE PER NURSING PROTOCOL Performed By: #### L 501.080 ####[facility] [address] [place], [address] FINGERSTICK GLU 54 mg/dL Low 74-106 [facility] Comment on above: Result Comment: JOHNNY GEMENT OF PATIENT CARE PER NURSING PROTOCOL Performed By: #### L 501.080 ####[facility] [address] [place], [address] Basic Metabolic Profile (BMP )on 04-08-2025 BUN/CRE 16.5 RATIO Normal 10-20 [facility] Comment on above: Performed By: #### L 100.0100, L500.2500 ####[facility] [address] [place], [address] Calcium [Mass/Vol] 8.7 mg/dL Normal 7.6-11.0 [facility] Comment on above: Performed By: #### L 100.0100, L500.2500 ####[facility] [address] [place], [address] Chloride [Moles/Vol] 102 mmol/L Normal 98-108 [facility] Comment on above: Performed By: #### L 100.0100, L500.2500 ####[facility] [address] [place], [address] CO2 [Moles/Vol] 18.6 mmol/L Low 21.0-32.0 [facility] Comment on above: Performed By: #### L 100.0100, L500.2500 ####[facility] [address] [place], [address] Creatinine [Mass/Vol] 2.15 mg/dL High 0.70-1.[address] [facility] Comment on above: Performed By: #### L 100.0100, L500.2500 ####[facility] [address] [place], [address] ECRCL 26.05 ml/min Low 50-250 [facility] Comment on above: Performed By: #### L 100.0100, L500.2500 ####[facility] [address] [place], [address] GAP 15 Normal 5-15 [facility] Comment on above: Performed By: #### L 100.0100, L500.2500 ####[facility] [address] [place], [address] GFR/1.73 sq M.predicted among non-blacks MDRD (S/P/Bld) [Vol rate/Area] 29 mL/min/{1.73_m2} Low >60 [facility] Comment on above: Result Comment: mL/m in/1.73m2 CKD-EPI Creatinine Equation (2020) Performed By: #### L 100.0100, L500.2500 ####[facility] [address] [place], [address] Glucose [Mass/Vol] 74 mg/dL Normal 70-99 [facility] Comment on above: Performed By: #### L 100.0100, L500.2500 ####[facility] [address] [place], [address] Potassium [Moles/Vol] 4.0 mmol/L Normal 3.3-5.[address] [facility] Comment on above: Result Comment: Hemo lysis present, Results??could be affected.?? Performed By: #### L 100.0100, L500.2500 ####[facility] [address] [place], [address] Sodium [Moles/Vol] 136 mmol/L Normal 133-145 [facility] Comment on above: Performed By: #### L 100.0100, L500.2500 ####[facility] [address] [place], [address] Urea nitrogen [Mass/Vol] 36 mg/dL High 4-19 [facility] Comment on above: Performed By: #### L 100.0100, L500.2500 ####[facility] [address] [place], [address] Bedside Glucoseon 04-08-2025 FINGERSTICK GLU 107 mg/dL High 74-106 [facility] Comment on above: Result Comment: JOHNNY GEMENT OF PATIENT CARE PER NURSING PROTOCOL Performed By: #### L 501.080 ####[facility] [address] [place], [address] FINGERSTICK GLU 92 mg/dL Normal 74-106 [facility] Comment on above: Result Comment: JOHNNY GEMENT OF PATIENT CARE PER NURSING PROTOCOL Performed By: #### L 501.080 ####[facility] [address] [place], [address] FINGERSTICK GLU 101 mg/dL Normal 74-106 [facility] Comment on above: Result Comment: JOHNNY GEMENT OF PATIENT CARE PER NURSING PROTOCOL Performed By: #### L 501.080 ####[facility] [address] [place], [address] FINGERSTICK GLU 69 mg/dL Low 74-106 [facility] Comment on above: Result Comment: JOHNNY GEMENT OF PATIENT CARE PER NURSING PROTOCOL Performed By: #### L 501.080 ####[facility] [address] [place], [address] CBC W/Diff, Automatedon - Anisocytosis Ql (Bld) 1+ Normal [facility] Comment on above: Performed By: #### L 100.0100, L500.2500 ####[facility] [address] [place], [address] Laboratory - Hematology and Cell countsOrdered By: Lv Moreno on 04-08-2025 Anisocytosis Ql (Bld) 1+ [facility] Absolute lymphocyte countOrd ered By: Jaden Cedillo on 04-07-2025 Lymphocytes Auto (Unsp spec) [#/Vol] 0.87 10*3/uL 0.83-4.51 [facility] Absolute neutrophil countOrd ered By: Jaden Cedillo on 04-07-2025 Neutrophils (Bld) [#/Vol] 3.1 10*3/uL 2.0-7.7 [facility] Anion gap in Serum or Plasma Ordered By: Jaden Cedillo on 04-07-2025 Anion gap [Moles/Vol] 15 mmol/L 5-[address] [facility] Automated lymphocyte count a s percentage of total leukocytesOrdered By: Jaden Cedillo on 04-07-2025 Lymphocytes/100 WBC Auto (Unsp spec) 18.1 % Low 19-41 [facility] BUN/creatinine ratioOrdered By: Jaden Cedillo on 04-07-2025 Urea nitrogen/Creatinine [Mass ratio] 16.3 mg/mg 10- [facility] Basic Metabolic Profile (BMP )on 04-07-2025 BUN/CRE 16.3 RATIO Normal - [facility] Comment on above: Performed By: #### L 500.2500, L100.0100 ####[facility] [address] [place], [address] Calcium [Mass/Vol] 8.8 mg/dL Normal 7.6-11.0 [facility] Comment on above: Performed By: #### L 500.2500, L100.0100 ####[facility] [address] [place], [address] Chloride [Moles/Vol] 103 mmol/L Normal 98-108 [facility] Comment on above: Performed By: #### L 500.2500, L100.0100 ####[facility] [address] [place], [address] CO2 [Moles/Vol] 22.1 mmol/L Normal 21.0-32.0 [facility] Comment on above: Performed By: #### L 500.2500, L100.0100 ####[facility] [address] [place], [address] Creatinine [Mass/Vol] 2.11 mg/dL High 0.70-1.[address] [facility] Comment on above: Performed By: #### L 500.2500, L100.0100 ####[facility] [address] [place], [address] ECRCL 26.44 ml/min Low 50-250 [facility] Comment on above: Performed By: #### L 500.2500, L100.0100 ####[facility] [address] [place], [address] GAP 15 Normal 5-15 [facility] Comment on above: Performed By: #### L 500.2500, L100.0100 ####[facility] [address] [place], [address] GFR/1.73 sq M.predicted among non-blacks MDRD (S/P/Bld) [Vol rate/Area] 30 mL/min/{1.73_m2} Low >60 [facility] Comment on above: Result Comment: mL/m in/1.73m2 CKD-EPI Creatinine Equation (2020) Performed By: #### L 500.2500, L100.0100 ####[facility] [address] [place], [address] Glucose [Mass/Vol] 93 mg/dL Normal 70-99 [facility] Comment on above: Performed By: #### L 500.2500, L100.0100 ####[facility] [address] [place], [address] Potassium [Moles/Vol] 3.7 mmol/L Normal 3.3-5.[address] [facility] Comment on above: Performed By: #### L 500.2500, L100.0100 ####[facility] [address] [place], [address] Sodium [Moles/Vol] 140 mmol/L Normal 133-145 [facility] Comment on above: Performed By: #### L 500.2500, L100.0100 ####[facility] [address] [place], [address] Urea nitrogen [Mass/Vol] 34 mg/dL High 4-19 [facility] Comment on above: Performed By: #### L 500.2500, L100.0100 ####[facility] [address] [place], [address] Basophil percentageOrdered B y: Jaden Cedillo on 04-07-2025 Basophils/100 WBC (Bld) 1.0 % 0-1 [facility] Bedside Glucoseon 04-07-2025 FINGERSTICK GLU 144 mg/dL High 74-106 [facility] Comment on above: Result Comment: JOHNNY GEMENT OF PATIENT CARE PER NURSING PROTOCOL Performed By: #### L 501.080 ####[facility] [address] [place], [address] FINGERSTICK GLU 108 mg/dL High 74-106 [facility] Comment on above: Result Comment: JOHNNY GEMENT OF PATIENT CARE PER NURSING PROTOCOL Performed By: #### L 501.080 ####[facility] [address] [place], [address] FINGERSTICK GLU 144 mg/dL High 74-106 [facility] Comment on above: Result Comment: JOHNNY GEMENT OF PATIENT CARE PER NURSING PROTOCOL Performed By: #### L 501.080 ####[facility] [address] [place], [address] FINGERSTICK GLU 92 mg/dL Normal 74-106 [facility] Comment on above: Result Comment: JOHNNY GEMENT OF PATIENT CARE PER NURSING PROTOCOL Performed By: #### L 501.080 ####[facility] [address] [place], [address] Blood manual differential co mment interpretation (narrative result)Ordered By: Jaden Cedillo on 04-07-2025 Manual differential comment Raymond (Bld) [Interp] SCANNED [facility] Blood schistocyte detection by light microscopyOrdered By: Jaden Cedillo on 04-07-2025 Schistocytes LM Ql (Bld) RARE [facility] CBC W/Diff, Automatedon 03-21 ACANTHOCYTE 1+ Normal [facility] Comment on above: Performed By: #### L 500.2500, L100.0100 ####[facility] [address] [place], [address] Anisocytosis Ql (Bld) 2+ Normal [facility] Comment on above: Performed By: #### L 500.2500, L100.0100 ####[facility] [address] [place], [address] OVALOCYTE 1+ Normal [facility] Comment on above: Performed By: #### L 500.2500, L100.0100 ####[facility] [address] [place], [address] PLT EST ADEQUATE Normal ADEQ [facility] Comment on above: Performed By: #### L 500.2500, L100.0100 ####[facility] [address] [place], [address] SCHISTOCYTES RARE Normal [facility] Comment on above: Performed By: #### L 500.2500, L100.0100 ####[facility] [address] [place], [address] SMEAR COMMENT SCANNED Normal [facility] Comment on above: Performed By: #### L 500.2500, L100.0100 ####[facility] [address] [place], [address] Carbon dioxide, total [Moles /volume] in Central venous bloodOrdered By: Jaden Cedillo on 04-07-2025 CO2 [Moles/Vol] 22.1 mmol/L 21.0-32.0 [facility] Chloride assayOrdered By: Jacquelin Cedillo on 04-07-2025 Chloride [Moles/Vol] 103 mmol/L 98-108 [facility] Eosinophil percentageOrdered By: Jaden Cedillo on 04-07-2025 Eosinophils/100 WBC (Bld) 5.8 % High 0-5 [facility] Erythrocyte distribution wid th ratioOrdered By: Jaden Cedillo on 04-07-2025 Erythrocyte distribution width (RBC) [Ratio] 20.3 % High 11.6-14.6 [facility] Erythrocyte distribution wid th standard deviationOrdered By: Jaden Cedillo on 04-07-2025 Erythrocyte distribution width (RBC) [Ratio] 61.7 fl High 35.1-43.9 [facility] Glomerular filtration rate ( GFR) estimation/1.73 sq m using serum, plasma, or whole bOrdered By: Jaden Cedillo on 04-07-2025 GFR/1.73 sq M.predicted among non-blacks MDRD (S/P/Bld) [Vol rate/Area] 30 mL/min/{1.73_m2} Low >60 [facility] Comment on above: mL/min/1.73m2 CKD-EP I Creatinine Equation (2020) [facility] deOrdered By: Jaden Cedillo on 04-07-2025 Glucose [Mass/Vol] 144 mg/dL High 74-106 [facility] Comment on above: MANAGEMENT OF PATIEN T CARE PER NURSING PROTOCOL Hematocrit Auto (Bld) [Volum e fraction]Ordered By: Jaden Cedillo on 04-07-2025 Hematocrit (Bld) [Volume fraction] 44.2 % 40-54 [facility] Hemoglobin measurementOrdere d By: Jaden Cedillo on 04-07-2025 Hemoglobin (Bld) [Mass/Vol] 15.0 g/dL 13.0-16.5 [facility] Immature granulocytes/100 WB C Auto (Bld)Ordered By: Jaden Cedillo on 04-07-2025 Immature granulocytes/100 WBC (Bld) 0.400 % 0.0-0.9 [facility] Comment on above: IG% - Immature Granu locytes (promyelocytes, myelocytes and metamyelocytes) > 1% indicates that a LEFT SHIFT is Present. Laboratory - Hematology and Cell countsOrdered By: Jaden Cedillo on 04-07-2025 Anisocytosis Ql (Bld) 2+ [facility] MCV (mean corpuscular volume ) determinationOrdered By: Jaden Cedillo on 04-07-2025 MCV (RBC) [Entitic vol] 86.3 fL 80-94 [facility] Mean corpuscular hemoglobin (MCH) determinationOrdered By: Jaden Cedillo on 04-07-2025 MCH (RBC) [Entitic mass] 29.3 pg 27.0-32.0 [facility] Mean corpuscular hemoglobin concentration (MCHC) determinationOrdered By: Jaden Cedillo on 04-07-2025 MCHC (RBC) [Mass/Vol] 33.9 g/dL 32-[address] [facility] Mean platelet volume determi nationOrdered By: Jaden Cedillo on 04-07-2025 Platelet mean volume (Bld) [Entitic vol] 11.5 fL 6.2-12.0 [facility] Monocyte percentageOrdered B y: Jaden Cedillo on 04-07-2025 Monocytes/100 WBC (Bld) 11.2 % High 0-10 [facility] Neutrophil percentageOrdered By: Jaden Cedillo on 04-07-2025 Neutrophils/100 WBC (Bld) 63.5 % 47-70 [facility] Nucleated red blood cell per centageOrdered By: Jaden Cedillo on 04-07-2025 Nucleated RBC/100 WBC (Bld) [Ratio] 0 % 0-5 [facility] Ovalocyte detectionOrdered B y: Jaden Cedillo on 04-07-2025 Ovalocytes LM Ql (Bld) 1+ [facility] Platelet countOrdered By: Jacquelin Cedillo on 04-07-2025 Platelets (Bld) [#/Vol] 164 10*3/uL 150-450 [facility] Platelet estimateOrdered By: Jaden Cedillo on 04-07-2025 Platelets LM Ql (Bld) ADEQUATE ADEQ [facility] Potassium measurement (mass/ volume)Ordered By: Jaden Cedillo on 04-07-2025 Potassium (Unsp spec) [Mass/Vol] 3.7 mmol/L 3.3-5.1 [facility] RBC Auto (Bld) [#/Vol]Ordere d By: Jaden Cedillo on 04-07-2025 RBC (Bld) [#/Vol] 5.12 10*6/uL 4.6-6.2 [facility] Serum creatinine measurement (mass/volume)Ordered By: Jaden Cedillo on 04-07-2025 Creatinine [Mass/Vol] 2.11 mg/dL High 0.70-1.[address] [facility] Serum glucose measurement (m ass/volume)Ordered By: Jaden Cedillo on 04-07-2025 Glucose [Mass/Vol] 93 mg/dL 70-99 [facility] Serum or plasma calcium geena urement (mass/volume)Ordered By: Jaden Cedillo on 04-07-2025 Calcium [Mass/Vol] 8.8 mg/dL 7.6-11.0 [facility] Serum or plasma urea nitroge n measurement (mass/volume)Ordered By: Jaden Cedillo on 04-07-2025 Urea nitrogen [Mass/Vol] 34 mg/dL High 4-19 [facility] Sodium levelOrdered By: Armen Cedillo on 04-07-2025 Sodium [Moles/Vol] 140 mmol/L 133-145 [facility] White blood cell (WBC) count Ordered By: Jaden Cedillo on 04-07-2025 WBC (Bld) [#/Vol] 4.8 10*3/uL 4.4-11.0 [facility] Basic Metabolic Profile (BMP )on 04-06-2025 BUN/CRE 16.3 RATIO Normal 10-20 [facility] Comment on above: Performed By: #### L 500.2500, L500.3400, L506.0400, L100.0100 ####[facility] [address] [place], [place], [address] Calcium [Mass/Vol] 8.6 mg/dL Normal 7.6-11.0 [facility] Comment on above: Performed By: #### L 500.2500, L500.3400, L506.0400, L100.0100 ####[facility] [address] [place], [address] Chloride [Moles/Vol] 106 mmol/L Normal 98-108 [facility] Comment on above: Performed By: #### L 500.2500, L500.3400, L506.0400, L100.0100 ####[facility] [address] [place], [address] CO2 [Moles/Vol] 19.4 mmol/L Low 21.0-32.0 [facility] Comment on above: Performed By: #### L 500.2500, L500.3400, L506.0400, L100.0100 ####[facility] [address] [place], [address] Creatinine [Mass/Vol] 2.11 mg/dL High 0.70-1.[address] [facility] Comment on above: Performed By: #### L 500.2500, L500.3400, L506.0400, L100.0100 ####[facility] [address] [place], [address] ECRCL 26.44 ml/min Low 50-250 [facility] Comment on above: Performed By: #### L 500.2500, L500.3400, L506.0400, L100.0100 ####[facility] [address] [place], [address] GAP 15 Normal 5-15 [facility] Comment on above: Performed By: #### L 500.2500, L500.3400, L506.0400, L100.0100 ####[facility] [address] [place], [address] GFR/1.73 sq M.predicted among non-blacks MDRD (S/P/Bld) [Vol rate/Area] 30 mL/min/{1.73_m2} Low >60 [facility] Comment on above: Result Comment: mL/m in/1.73m2 CKD-EPI Creatinine Equation (2020) Performed By: #### L 500.2500, L500.3400, L506.0400, L100.0100 ####[facility] [address] [place], [address] Glucose [Mass/Vol] 77 mg/dL Normal 70-99 [facility] Comment on above: Performed By: #### L 500.2500, L500.3400, L506.0400, L100.0100 ####[facility] [address] [place], [address] Potassium [Moles/Vol] 2.9 mmol/L Low 3.3-5.[address] [facility] Comment on above: Performed By: #### L 500.2500, L500.3400, L506.0400, L100.0100 ####[facility] [address] [place], [address] Sodium [Moles/Vol] 141 mmol/L Normal 133-145 [facility] Comment on above: Performed By: #### L 500.2500, L500.3400, L506.0400, L100.0100 ####[facility] [address] [place], [address] Urea nitrogen [Mass/Vol] 34 mg/dL High 4-19 [facility] Comment on above: Performed By: #### L 500.2500, L500.3400, L506.0400, L100.0100 ####[facility] [address] [place], [address] Bedside Glucoseon 04-06-2025 FINGERSTICK GLU 128 mg/dL High 74-106 [facility] Comment on above: Result Comment: JOHNNY GEMENT OF PATIENT CARE PER NURSING PROTOCOL Performed By: #### L 501.080 ####[facility] [address] [place], [address] FINGERSTICK GLU 139 mg/dL High 74-106 [facility] Comment on above: Result Comment: JOHNNY GEMENT OF PATIENT CARE PER NURSING PROTOCOL Performed By: #### L 501.080 ####[facility] [address] [place], [address] FINGERSTICK GLU 123 mg/dL High 74-106 [facility] Comment on above: Result Comment: JOHNNY GEMENT OF PATIENT CARE PER NURSING PROTOCOL Performed By: #### L 501.080 ####[facility] [address] [place], [address] FINGERSTICK GLU 71 mg/dL Low 74-106 [facility] Comment on above: Result Comment: JOHNNY GEMENT OF PATIENT CARE PER NURSING PROTOCOL Performed By: #### L 501.080 ####[facility] [address] [place], [address] Bilirubin Test strip Ql (U)O rdered By: Shaun Taveras on 04-06-2025 Bilirubin Ql (U) Negative Negative [facility] Bilirubin directOrdered By: Jaden Cedillo on 04-06-2025 Bilirubin.direct [Mass/Vol] 1.13 mg/dL High 0.00-0.30 [facility] Bilirubin, totalOrdered By: Jaden Cedillo on 04-06-2025 Bilirubin [Mass/Vol] 1.81 mg/dL High 0.00-1.30 [facility] CBC W/Diff, Automatedon 03-21 Absolute Lymph 0.83 X10 3/uL Normal 0.83-4.51 [facility] Comment on above: Performed By: #### L 500.2500, L500.3400, L506.0400, L100.0100 ####[facility] [address] [place], [address] Absolute Neut 2.2 X10 3/uL Normal 2.0-7.7 [facility] Comment on above: Performed By: #### L 500.2500, L500.3400, L506.0400, L100.0100 ####[facility] [address] [place], [address] Basophils/100 WBC (Bld) 1.8 % High 0-1 [facility] Comment on above: Performed By: #### L 500.2500, L500.3400, L506.0400, L100.0100 ####[facility] [address] [place], [address] Eosinophils/100 WBC (Bld) 6.8 % High 0-5 [facility] Comment on above: Performed By: #### L 500.2500, L500.3400, L506.0400, L100.0100 ####[facility] [address] [place], [address] Erythrocyte distribution width (RBC) [Ratio] 19.9 % High 11.6-14.6 [facility] Comment on above: Performed By: #### L 500.2500, L500.3400, L506.0400, L100.0100 ####[facility] [address] [place], [address] Hematocrit (Bld) [Volume fraction] 42.9 % Normal 40-54 [facility] Comment on above: Performed By: #### L 500.2500, L500.3400, L506.0400, L100.0100 ####[facility] [address] [place], [address] Hemoglobin (Bld) [Mass/Vol] 14.6 g/dL Normal 13.0-16.5 [facility] Comment on above: Performed By: #### L 500.2500, L500.3400, L506.0400, L100.0100 ####[facility] [address] [place], [address] IG% 0.500 Normal 0.0-0.9 [facility] Comment on above: Result Comment: IG% - Immature Granulocytes (promyelocytes, myelocytes andmetamyelocytes) > 1% indicates that a LEFT SHIFT is Present. Performed By: #### L 500.2500, L500.3400, L506.0400, L100.0100 ####[facility] [address] [place], [address] Lymphocytes/100 WBC (Bld) 21.7 % Normal 19-41 [facility] Comment on above: Performed By: #### L 500.2500, L500.3400, L506.0400, L100.0100 ####[facility] [address] [place], [address] MCH (RBC) [Entitic mass] 29.2 pg Normal 27.0-32.0 [facility] Comment on above: Performed By: #### L 500.2500, L500.3400, L506.0400, L100.0100 ####[facility] [address] [place], [address] MCHC (RBC) [Mass/Vol] 34.0 g/dL Normal 32-[address] [facility] Comment on above: Performed By: #### L 500.2500, L500.3400, L506.0400, L100.0100 ####[facility] [address] [place], [address] MCV (RBC) [Entitic vol] 85.8 fL Normal 80-94 [facility] Comment on above: Performed By: #### L 500.2500, L500.3400, L506.0400, L100.0100 ####[facility] [address] [place], [address] Monocytes/100 WBC (Bld) 12.8 % High 0-10 [facility] Comment on above: Performed By: #### L 500.2500, L500.3400, L506.0400, L100.0100 ####[facility] [address] [place], [address] Neutrophils/100 WBC (Bld) 56.4 % Normal 47-70 [facility] Comment on above: Performed By: #### L 500.2500, L500.3400, L506.0400, L100.0100 ####[facility] [address] [place], [address] Nucleated RBC (Bld) [#/Vol] 0 10*3/uL Normal 0-5 [facility] Comment on above: Performed By: #### L 500.2500, L500.3400, L506.0400, L100.0100 ####[facility] [address] [place], [address] Platelet mean volume (Bld) [Entitic vol] 10.4 fL Normal 6.2-12.0 [facility] Comment on above: Performed By: #### L 500.2500, L500.3400, L506.0400, L100.0100 ####[facility] [address] [place], [address] Platelets (Bld) [#/Vol] 155 10*3/uL Normal 150-450 [facility] Comment on above: Performed By: #### L 500.2500, L500.3400, L506.0400, L100.0100 ####[facility] [address] [place], [address] RBC (Bld) [#/Vol] 5.00 10*6/uL Normal 4.6-6.2 [facility] Comment on above: Performed By: #### L 500.2500, L500.3400, L506.0400, L100.0100 ####[facility] [address] [place], [address] RDW SD 60.6 fl High 35.1-43.9 [facility] Comment on above: Performed By: #### L 500.2500, L500.3400, L506.0400, L100.0100 ####[facility] [address] [place], [address] WBC (Bld) [#/Vol] 3.8 10*3/uL Low 4.4-11.0 [facility] Comment on above: Performed By: #### L 500.2500, L500.3400, L506.0400, L100.0100 ####[facility] [address] [place], [address] Ketones Test strip Ql (U)Ord ered By: Shaun Taveras on 04-06-2025 Ketones Ql (U) Negative Negative [facility] Laboratory - Chemistry and C hemistry - challengeOrdered By: Jaden Cedillo on 04-06-2025 AST [Catalytic activity/Vol] 40 U/L High <38 [facility] Liver Profileon 04-06-2025 Albumin [Mass/Vol] 3.1 g/dL Low 3.4-4.8 [facility] Comment on above: Performed By: #### L 500.2500, L500.3400, L506.0400, L100.0100 ####[facility] [address] [place], [address] ALK PHOS 104 U/L Normal 40-129 [facility] Comment on above: Performed By: #### L 500.2500, L500.3400, L506.0400, L100.0100 ####[facility] [address] [place], [address] ALT [Catalytic activity/Vol] 12 U/L Normal <=46 [facility] Comment on above: Performed By: #### L 500.2500, L500.3400, L506.0400, L100.0100 ####[facility] [address] [place], [address] AST [Catalytic activity/Vol] 40 U/L High <=37 [facility] Comment on above: Performed By: #### L 500.2500, L500.3400, L506.0400, L100.0100 ####[facility] [address] [place], [address] Bilirubin [Mass/Vol] 1.81 mg/dL High 0.00-1.30 [facility] Comment on above: Performed By: #### L 500.2500, L500.3400, L506.0400, L100.0100 ####[facility] [address] [place], [address] Bilirubin.direct [Mass/Vol] 1.13 mg/dL High 0.00-0.30 [facility] Comment on above: Performed By: #### L 500.2500, L500.3400, L506.0400, L100.0100 ####[facility] [address] [place], [address] Globulin (S) [Mass/Vol] 2.2 g/dL Normal 2.2-4.2 [facility] Comment on above: Performed By: #### L 500.2500, L500.3400, L506.0400, L100.0100 ####[facility] [address] [place], [address] T PROT 5.3 g/dL Low 5.9-8.4 [facility] Comment on above: Performed By: #### L 500.2500, L500.3400, L506.0400, L100.0100 ####[facility] [address] [place], [address] Microscopic analysis of urin e for red blood cells (RBC)Ordered By: Shaun Taveras on 04-06-2025 Microscopic analysis of urine for red blood cells (RBC) 0 SEEN /hpf 0-5 [facility] Mucus LM Ql (Urine sed)Order ed By: Shaun Taveras on 04-06-2025 Mucus Ql (Urine sed) 0 SEEN /hpf [facility] Nitrite Test strip Ql (U)Ord ered By: Shaun Taveras on 04-06-2025 Nitrite Ql (U) Negative Negative [facility] Protein Test strip Ql (U)Ord ered By: Shaun Taveras on 04-06-2025 Protein Ql (U) 15 mg/dl High Negative [facility] Serum globulin measurementOr dered By: Jaden Cedillo on 04-06-2025 Globulin (S) [Mass/Vol] 2.2 g/dL 2.2-4.2 [facility] Serum or plasma alanine clay otransferase (ALT) measurementOrdered By: Jaden Cedillo on 04-06-2025 ALT [Catalytic activity/Vol] 12 U/L <47 [facility] Serum or plasma albumin geena urement (mass/volume)Ordered By: Jaden Cedillo on 04-06-2025 Albumin [Mass/Vol] 3.1 g/dL Low 3.4-4.8 [facility] Serum or plasma alkaline camila sphatase measurementOrdered By: Jaden Cedillo on 04-06-2025 ALP [Catalytic activity/Vol] 104 U/L 40-129 [facility] Squamous epithelial cells de tection in urine sediment by light microscopyOrdered By: Shaun Taveras on 04-06-2025 Epithelial cells.squamous LM Ql (Urine sed) 0 SEEN /hpf 0-5 [facility] T4 Free Directon 04-06-2025 T4 FREE DIRECT 1.20 ng/dL Normal 0.76-1.46 [facility] Comment on above: Performed By: #### L 500.2500, L500.3400, L506.0400, L100.0100 ####[facility] [address] [place], [address] T4 freeOrdered By: Jaden ortega on 04-06-2025 Free T4 [Mass/Vol] 1.20 ng/dL 0.76-1.46 [facility] Total proteinOrdered By: Melchor Cedillo on 04-06-2025 Protein [Mass/Vol] 5.3 g/dL Low 5.9-8.4 [facility] Urinalysis, Completeon 04-06 BACTERIA 0 SEEN Normal None Seen [facility] Comment on above: Order Comment: need of a specimen 04-05-25 07:46CLEAN CATCH Performed By: #### L 400.0001 ####[facility] [address] [place], [address] EPI,SQUAMOUS 0 SEEN Normal 0-[address] [place] [address] Comment on above: Order Comment: need of a specimen 04-05-25 07:46CLEAN CATCH Performed By: #### L 400.0001 ####[facility] [address] [place], [address] Mucus Ql (Urine sed) 0 SEEN Normal [facility] Comment on above: Order Comment: need of a specimen 04-05-25 07:46CLEAN CATCH Performed By: #### L 400.0001 ####[facility] [address] [place], [address] RBC 0 SEEN Normal [address] Comment on above: Order Comment: need of a specimen 04-05-25 07:46CLEAN CATCH Performed By: #### L 400.0001 ####[facility] [address] [place], [address] WBC 0 SEEN Normal [address] Comment on above: Order Comment: need of a specimen 04-05-25 07:46CLEAN CATCH Performed By: #### L 400.0001 ####[facility] [address] [place], [address] Urine clarityOrdered By: Doug Taveras on 04-06-2025 Clarity (U) Clear Clear [facility] Urine color determinationOrd ered By: Shaun Taveras on 04-06-2025 Color (U) Yellow Yellow [facility] Urine glucose detectionOrder ed By: Shaun Taveras on 04-06-2025 Glucose Ql (U) Normal mg/dl Normal [facility] Urine leukocyte esterase det ection by dipstickOrdered By: Shaun Taveras on 04-06-2025 Leukocyte esterase Test strip Ql (U) Negative Negative [facility] Urine pHOrdered By: Shaun gregg on 04-06-2025 pH (U) 6.0 [pH] 5.0 - 8.0 [facility] Urine sediment bacteria coun t by microscopy (number/high power field)Ordered By: Shaun Taveras on 04-06-2025 Bacteria LM.HPF (Urine sed) [#/Area] 0 /[HPF] None Seen [facility] Urine specific gravity measu rementOrdered By: Shaun Taveras on 04-06-2025 Specific gravity (U) [Rel density] 1.015 1.002-1.030 [facility] Urine urobilinogen measureme ntOrdered By: Shaun Taveras on 04-06-2025 Urobilinogen Ql (U) Normal mg/dl Normal [facility] White blood cell countOrdere d By: Shaun Taveras on 04-06-2025 White blood cell count 0 SEEN /hpf 0-5 [facility] Absolute lymphocyte countOrd ered By: Shaun Taveras on 04-05-2025 Lymphocytes Auto (Unsp spec) [#/Vol] 0.86 10*3/uL 0.83-4.51 [facility] Absolute neutrophil countOrd ered By: Shaun Taveras on 04-05-2025 Neutrophils (Bld) [#/Vol] 4.2 10*3/uL 2.0-7.7 [facility] Anion gap in Serum or Plasma Ordered By: Shaun Taveras on 04-05-2025 Anion gap [Moles/Vol] 18 mmol/L High 5-[address] [facility] Automated lymphocyte count a s percentage of total leukocytesOrdered By: Shaun Taveras on 04-05-2025 Lymphocytes/100 WBC Auto (Unsp spec) 14.4 % Low 19-41 [facility] BUN/creatinine ratioOrdered By: Shaun Taveras on 04-05-2025 Urea nitrogen/Creatinine [Mass ratio] 15.0 mg/mg 10-20 [facility] Basic Metabolic Profile (BMP )on 04-05-2025 BUN/CRE 15.1 RATIO Normal 10-20 [facility] Comment on above: Performed By: #### L 500.2500, L100.0100, L501.3620 ####[facility] [address] [place], [address] Calcium [Mass/Vol] 9.3 mg/dL Normal 7.6-11.0 [facility] Comment on above: Performed By: #### L 500.2500, L100.0100, L501.3620 ####[facility] [address] [place], [address] Chloride [Moles/Vol] 103 mmol/L Normal 98-108 [facility] Comment on above: Performed By: #### L 500.2500, L100.0100, L501.3620 ####[facility] [address] [place], [address] CO2 [Moles/Vol] 17.4 mmol/L Low 21.0-32.0 [facility] Comment on above: Performed By: #### L 500.2500, L100.0100, L501.3620 ####[facility] [address] [place], [address] Creatinine [Mass/Vol] 2.36 mg/dL High 0.70-1.[address] [facility] Comment on above: Performed By: #### L 500.2500, L100.0100, L501.3620 ####[facility] [address] [place], [address] ECRCL 23.64 ml/min Low 50-250 [facility] Comment on above: Performed By: #### L 500.2500, L100.0100, L501.3620 ####[facility] [address] [place], [address] GAP 19 High 5-15 [facility] Comment on above: Performed By: #### L 500.2500, L100.0100, L501.3620 ####[facility] [address] [place], [address] GFR/1.73 sq M.predicted among non-blacks MDRD (S/P/Bld) [Vol rate/Area] 26 mL/min/{1.73_m2} Low >60 [facility] Comment on above: Result Comment: mL/m in/1.73m2 CKD-EPI Creatinine Equation (2020) Performed By: #### L 500.2500, L100.0100, L501.3620 ####[facility] [address] [place], [address] Glucose [Mass/Vol] 86 mg/dL Normal 70-99 [facility] Comment on above: Performed By: #### L 500.2500, L100.0100, L501.3620 ####[facility] [address] [place], [address] Potassium [Moles/Vol] 3.9 mmol/L Normal 3.3-5.[address] [facility] Comment on above: Result Comment: Hemo lysis present, Results??could be affected.?? Performed By: #### L 500.2500, L100.0100, L501.3620 ####[facility] [address] [place], [address] Sodium [Moles/Vol] 139 mmol/L Normal 133-145 [facility] Comment on above: Performed By: #### L 500.2500, L100.0100, L501.3620 ####[facility] [address] [place], [address] Urea nitrogen [Mass/Vol] 36 mg/dL High 4-19 [facility] Comment on above: Performed By: #### L 500.2500, L100.0100, L501.3620 ####[facility] [address] [place], [address] BUN/CRE 15.0 RATIO Normal 10-20 [facility] Comment on above: Performed By: #### L 501.5200, L501.9520, L100.0100, L500.2500, L503.7505, L501.3620 ####[facility] [address] [place], [address] Calcium [Mass/Vol] 9.4 mg/dL Normal 7.6-11.0 [facility] Comment on above: Performed By: #### L 501.5200, L501.9520, L100.0100, L500.2500, L503.7505, L501.3620 ####[facility] [address] [place], [address] Chloride [Moles/Vol] 103 mmol/L Normal 98-108 [facility] Comment on above: Performed By: #### L 501.5200, L501.9520, L100.0100, L500.2500, L503.7505, L501.3620 ####[facility] [address] [place], [address] CO2 [Moles/Vol] 19.6 mmol/L Low 21.0-32.0 [facility] Comment on above: Performed By: #### L 501.5200, L501.9520, L100.0100, L500.2500, L503.7505, L501.3620 ####[facility] [address] [place], [address] Creatinine [Mass/Vol] 2.38 mg/dL High 0.70-1.[address] [facility] Comment on above: Performed By: #### L 501.5200, L501.9520, L100.0100, L500.2500, L503.7505, L501.3620 ####[facility] [address] [place], [address] ECRCL 23.30 ml/min Low 50-250 [facility] Comment on above: Performed By: #### L 501.5200, L501.9520, L100.0100, L500.2500, L503.7505, L501.3620 ####[facility] [address] [place], [address] GAP 18 High 5-15 [facility] Comment on above: Performed By: #### L 501.5200, L501.9520, L100.0100, L500.2500, L503.7505, L501.3620 ####[facility] [address] [place], [address] GFR/1.73 sq M.predicted among non-blacks MDRD (S/P/Bld) [Vol rate/Area] 26 mL/min/{1.73_m2} Low >60 [facility] Comment on above: Result Comment: mL/m in/1.73m2 CKD-EPI Creatinine Equation (2020) Performed By: #### L 501.5200, L501.9520, L100.0100, L500.2500, L503.7505, L501.3620 ####[facility] [address] [place], [address] Glucose [Mass/Vol] 75 mg/dL Normal 70-99 [facility] Comment on above: Performed By: #### L 501.5200, L501.9520, L100.0100, L500.2500, L503.7505, L501.3620 ####[facility] [address] [place], [address] Potassium [Moles/Vol] 3.7 mmol/L Normal 3.3-5.[address] [facility] Comment on above: Result Comment: Hemo lysis present, Results??could be affected.?? Performed By: #### L 501.5200, L501.9520, L100.0100, L500.2500, L503.7505, L501.3620 ####[facility] [address] [place], [address] Sodium [Moles/Vol] 141 mmol/L Normal 133-145 [facility] Comment on above: Performed By: #### L 501.5200, L501.9520, L100.0100, L500.2500, L503.7505, L501.3620 ####[facility] [address] [place], [address] Urea nitrogen [Mass/Vol] 36 mg/dL High 4-19 [facility] Comment on above: Performed By: #### L 501.5200, L501.9520, L100.0100, L500.2500, L503.7505, L501.3620 ####[facility] [address] [place], [address] Basophil percentageOrdered B y: Shaun Taveras on 04-05-2025 Basophils/100 WBC (Bld) 1.3 % High 0-1 [facility] Bedside Glucoseon 04-05-2025 FINGERSTICK GLU 113 mg/dL High 74-106 [facility] Comment on above: Result Comment: JOHNNY GEMENT OF PATIENT CARE PER NURSING PROTOCOL Performed By: #### L 501.080 ####[facility] [address] [place], [address] FINGERSTICK GLU 99 mg/dL Normal 74-106 [facility] Comment on above: Result Comment: JOHNNY GEMENT OF PATIENT CARE PER NURSING PROTOCOL Performed By: #### L 501.080 ####[facility] [address] [place], [address] FINGERSTICK GLU 91 mg/dL Normal 74-106 [facility] Comment on above: Result Comment: JOHNNY GEMENT OF PATIENT CARE PER NURSING PROTOCOL Performed By: #### L 501.080 ####[facility] [address] [place], [address] Blood manual differential co mment interpretation (narrative result)Ordered By: Shaun Taveras on 04-05-2025 Manual differential comment Raymond (Bld) [Interp] SCANNED [facility] Comment on above: ANISOCYTOSIS 1+ CBC W/Diff, Automatedon 03-21 Absolute Lymph 1.22 X10 3/uL Normal 0.83-4.51 [facility] Comment on above: Performed By: #### L 500.2500, L100.0100, L501.3620 ####[facility] [address] [place], [address] Absolute Neut 3.6 X10 3/uL Normal 2.0-7.7 [facility] Comment on above: Performed By: #### L 500.2500, L100.0100, L501.3620 ####[facility] [address] [place], [address] Basophils/100 WBC (Bld) 1.6 % High 0-1 [facility] Comment on above: Performed By: #### L 500.2500, L100.0100, L501.3620 ####[facility] [address] [place], [address] Eosinophils/100 WBC (Bld) 1.4 % Normal 0-5 [facility] Comment on above: Performed By: #### L 500.2500, L100.0100, L501.3620 ####[facility] [address] [place], [address] Erythrocyte distribution width (RBC) [Ratio] 20.6 % High 11.6-14.6 [facility] Comment on above: Performed By: #### L 500.2500, L100.0100, L501.3620 ####[facility] [address] [place], [address] Hematocrit (Bld) [Volume fraction] 46.3 % Normal 40-54 [facility] Comment on above: Performed By: #### L 500.2500, L100.0100, L501.3620 ####[facility] [address] [place], [address] Hemoglobin (Bld) [Mass/Vol] 15.5 g/dL Normal 13.0-16.5 [facility] Comment on above: Performed By: #### L 500.2500, L100.0100, L501.3620 ####[facility] [address] [place], [address] IG% 0.300 Normal 0.0-0.9 [facility] Comment on above: Result Comment: IG% - Immature Granulocytes (promyelocytes, myelocytes andmetamyelocytes) > 1% indicates that a LEFT SHIFT is Present. Performed By: #### L 500.2500, L100.0100, L501.3620 ####[facility] [address] [place], [address] Lymphocytes/100 WBC (Bld) 21.0 % Normal 19-41 [facility] Comment on above: Performed By: #### L 500.2500, L100.0100, L501.3620 ####[facility] [address] [place], [address] MCH (RBC) [Entitic mass] 29.0 pg Normal 27.0-32.0 [facility] Comment on above: Performed By: #### L 500.2500, L100.0100, L501.3620 ####[facility] [address] [place], [address] MCHC (RBC) [Mass/Vol] 33.5 g/dL Normal 32-[address] [facility] Comment on above: Performed By: #### L 500.2500, L100.0100, L501.3620 ####[facility] [address] [place], [address] MCV (RBC) [Entitic vol] 86.7 fL Normal 80-94 [facility] Comment on above: Performed By: #### L 500.2500, L100.0100, L501.3620 ####[facility] [address] [place], [address] Monocytes/100 WBC (Bld) 13.6 % High 0-10 [facility] Comment on above: Performed By: #### L 500.2500, L100.0100, L501.3620 ####[facility] [address] [place], [address] Neutrophils/100 WBC (Bld) 62.1 % Normal 47-70 [facility] Comment on above: Performed By: #### L 500.2500, L100.0100, L501.3620 ####[facility] [address] [place], [address] Nucleated RBC (Bld) [#/Vol] 0 10*3/uL Normal 0-5 [facility] Comment on above: Performed By: #### L 500.2500, L100.0100, L501.3620 ####[facility] [address] [place], [address] Platelet mean volume (Bld) [Entitic vol] 10.6 fL Normal 6.2-12.0 [facility] Comment on above: Performed By: #### L 500.2500, L100.0100, L501.3620 ####[facility] [address] [place], [address] Platelets (Bld) [#/Vol] 159 10*3/uL Normal 150-450 [facility] Comment on above: Performed By: #### L 500.2500, L100.0100, L501.3620 ####[facility] [address] [place], [address] RBC (Bld) [#/Vol] 5.34 10*6/uL Normal 4.6-6.2 [facility] Comment on above: Performed By: #### L 500.2500, L100.0100, L501.3620 ####[facility] [address] [place], [address] RDW SD 62.0 fl High 35.1-43.9 [facility] Comment on above: Performed By: #### L 500.2500, L100.0100, L501.3620 ####[facility] [address] [place], [address] WBC (Bld) [#/Vol] 5.8 10*3/uL Normal 4.4-11.0 [facility] Comment on above: Performed By: #### L 500.2500, L100.0100, L501.3620 ####[facility] [address] [place], [address] OVALOCYTE RARE Normal [facility] Comment on above: Performed By: #### L 501.5200, L501.9520, L100.0100, L500.2500, L503.7505, L501.3620 ####[facility] [address] [place], [address] Anisocytosis Ql (Bld) 1+ Normal [facility] Comment on above: Performed By: #### L 501.5200, L501.9520, L100.0100, L500.2500, L503.7505, L501.3620 ####[facility] [address] [place], [address] PLT MORPH LARGE Normal [facility] Comment on above: Performed By: #### L 501.5200, L501.9520, L100.0100, L500.2500, L503.7505, L501.3620 ####[facility] [address] [place], [address] SMEAR COMMENT SCANNED Normal [facility] Comment on above: Result Comment: ANIS OCYTOSIS 1+ Performed By: #### L 501.5200, L501.9520, L100.0100, L500.2500, L503.7505, L501.3620 ####[facility] [address] [place], [address] CPK Total, Creatine Kinaseon 04-05-2025 CPK TOTAL 491 U/L High 24-195 [facility] Comment on above: Performed By: #### L 500.2500, L100.0100, L501.3620 ####[facility] [address] [place], [address] CPK TOTAL 449 U/L High 24-195 [facility] Comment on above: Performed By: #### L 501.5200, L501.9520, L100.0100, L500.2500, L503.7505, L501.3620 ####[facility] [address] [place], [address] Carbon dioxide, total [Moles /volume] in Central venous bloodOrdered By: Shaun Taveras on 04-05-2025 CO2 [Moles/Vol] 19.6 mmol/L Low 21.0-32.0 [facility] Chest 1 View (Portable)on Chest 1 View (Portable) Normal [facility] Chloride assayOrdered By: Emily Taveras on 04-05-2025 Chloride [Moles/Vol] 103 mmol/L 98-108 [facility] Consultation - Nephrologyon 04-05-2025 Consultation - Nephrology Normal [facility] Echo Completeon 04-05-2025 Echo Complete Normal [facility] Echocardiogram study reportO rdered By: Esther Hutchins on 04-05-2025 Study report [facility] [address] [place] [address] Echo Complete 04/05/25 0843 MR#: [id number] Acct: [id number] Name: AZAMMEGAN TAVO Rep #:[id number] : 1940 84 From: Esther Hutchins MD Attending Dr: Dr. Jaden Cedillo MD Status: ADM IN Ordering Dr: Rigoberto Durand MD Date: Location: [facility] Sex: M C Admitted: 04/05/25 Reason For Study Reason For Study: CHF Procedure This was a 2D Doppler, Color Flow transthoracic echocardiogram. Exam performed portable in patient room. Left Ventricle Normal size and thickness. Severe global LV systolic dysfunction. Estimated LVEF10%. Stage I diastolic dysfunction. Right Ventricle Normal [...] effusion. Moderate left pleural effusion. MMode/2D Measurements & Calculations LVIDd: 5.3 cm IVSd: 1.1 cm [...] MV dec time: 0.27 sec Doppler Measurements & Calculations MV E max jaswant: 51.1 cm/sec [...] Physician: Rigoberto Brandt Performed By: Julia Cordova, DONTA, RVT 04/05/25 1111 Date _ Esther Hutchins MD CC: Dr. Rigoberto Durand MD; Dr. Jaden Cedillo MD ~ Date Dictated: 04/05/25 0843 Date Transcribed: 04/05/25 1111 Tobacco Grower: Signed [facility] Work Phone: Emergency Department Summary on 04-05-2025 Emergency Department Summary Normal [facility] Eosinophil percentageOrdered By: Shaun Taveras on 04-05-2025 Eosinophils/100 WBC (Bld) 2.2 % 0-5 [facility] Erythrocyte distribution wid th ratioOrdered By: Shaun Taveras on 04-05-2025 Erythrocyte distribution width (RBC) [Ratio] 20.6 % High 11.6-14.6 [facility] Erythrocyte distribution wid th standard deviationOrdered By: Shaun Taveras on 04-05-2025 Erythrocyte distribution width (RBC) [Ratio] 60.8 fl High 35.1-43.9 [facility] Glomerular filtration rate ( GFR) estimation/1.73 sq m using serum, plasma, or whole bOrdered By: Shaun Taveras on 04-05-2025 GFR/1.73 sq M.predicted among non-blacks MDRD (S/P/Bld) [Vol rate/Area] 26 mL/min/{1.73_m2} Low >60 [facility] Comment on above: mL/min/1.73m2 CKD-EP I Creatinine Equation (2020) Hematocrit Auto (Bld) [Volum e fraction]Ordered By: Shaun Taveras on 04-05-2025 Hematocrit (Bld) [Volume fraction] 46.9 % 40-54 [facility] Hemoglobin measurementOrdere d By: Shaun Taveras on 04-05-2025 Hemoglobin (Bld) [Mass/Vol] 16.2 g/dL 13.0-16.5 [facility] Immature granulocytes/100 WB C Auto (Bld)Ordered By: Shaun Tvaeras on 04-05-2025 Immature granulocytes/100 WBC (Bld) 0.500 % 0.0-0.9 [facility] Comment on above: IG% - Immature Granu locytes (promyelocytes, myelocytes and metamyelocytes) > 1% indicates that a LEFT SHIFT is Present. Laboratory - Hematology and Cell countsOrdered By: Shaun Taveras on 04-05-2025 Anisocytosis Ql (Bld) 1+ [facility] Liver Profileon 04-05-2025 Albumin [Mass/Vol] 3.4 g/dL Normal 3.4-4.8 [facility] Comment on above: Performed By: #### L 500.3400 ####[facility] [address] [place], [address] ALK PHOS 118 U/L Normal 40-129 [facility] Comment on above: Performed By: #### L 500.3400 ####[facility] [address] [place], [address] ALT [Catalytic activity/Vol] 15 U/L Normal <=46 [facility] Comment on above: Performed By: #### L 500.3400 ####[facility] [address] [place], [address] AST [Catalytic activity/Vol] 54 U/L High <=37 [facility] Comment on above: Result Comment: Hemo lysis present, Results??could be affected.?? Performed By: #### L 500.3400 ####[facility] [address] [place], [address] Bilirubin [Mass/Vol] 2.01 mg/dL High 0.00-1.30 [facility] Comment on above: Performed By: #### L 500.3400 ####[facility] [address] [place], [address] Bilirubin.direct [Mass/Vol] 1.03 mg/dL High 0.00-0.30 [facility] Comment on above: Result Comment: Hemo lysis present, Results??could be affected.?? Performed By: #### L 500.3400 ####[facility] [address] [place], [address] Globulin (S) [Mass/Vol] 2.9 g/dL Normal 2.2-4.2 [facility] Comment on above: Performed By: #### L 500.3400 ####[facility] [address] [place], [address] T PROT 6.3 g/dL Normal 5.9-8.4 [facility] Comment on above: Performed By: #### L 500.3400 ####[facility] [address] [place], [address] MCV (mean corpuscular volume ) determinationOrdered By: Shaun Taveras on 04-05-2025 MCV (RBC) [Entitic vol] 85.9 fL 80-94 [facility] Magnesiumon 04-05-2025 Magnesium [Mass/Vol] 2.0 mg/dL Normal 1.5-2.2 [facility] Comment on above: Performed By: #### L 501.5200, L501.9520, L100.0100, L500.2500, L503.7505, L501.3620 ####[facility] [address] [place], [address] Magnesium measurement (mass/ volume)Ordered By: Shaun Taveras on 04-05-2025 Magnesium (Unsp spec) [Mass/Vol] 2.0 mg/dL 1.5-2.2 [facility] Mean corpuscular hemoglobin (MCH) determinationOrdered By: Shaun Taveras on 04-05-2025 MCH (RBC) [Entitic mass] 29.7 pg 27.0-32.0 [facility] Mean corpuscular hemoglobin concentration (MCHC) determinationOrdered By: Shaun Taveras on 04-05-2025 MCHC (RBC) [Mass/Vol] 34.5 g/dL 32-[address] [facility] Mean platelet volume determi nationOrdered By: Shaun Taveras on 04-05-2025 Platelet mean volume (Bld) [Entitic vol] 11.2 fL 6.2-12.0 [facility] Monocyte percentageOrdered B y: Shaun Taveras on 04-05-2025 Monocytes/100 WBC (Bld) 11.2 % High 0-10 [facility] Natriuretic peptide.B prohor nancy N-Terminal [Mass/volume] in Serum or PlasmaOrdered By: Shaun Taveras on 04-05-2025 Natriuretic peptide.B prohormone N-Terminal [Mass/Vol] > 08904 pg/mL High <1800 [facility] Comment on above: Heart Failure Unlike ly: < 300 pg/mLHeart Failure Likely< 50 Years: > 450 pg/mL50-75 Years: > 900 pg/mL>75 Years: > 1800 pg/mL Neutrophil percentageOrdered By: Shaun Taveras on 04-05-2025 Neutrophils/100 WBC (Bld) 70.4 % High 47-70 [facility] Nucleated red blood cell per centageOrdered By: Shaun Taveras on 04-05-2025 Nucleated RBC/100 WBC (Bld) [Ratio] 0 % 0-5 [facility] Ovalocyte detectionOrdered B y: Shaun Taveras on 04-05-2025 Ovalocytes LM Ql (Bld) RARE [facility] Platelet countOrdered By: Emily Taveras on 04-05-2025 Platelets (Bld) [#/Vol] 194 10*3/uL 150-450 [facility] Platelet morphologyOrdered B y: Shaun Taveras on 04-05-2025 Platelet morphology finding Nom (Bld) LARGE [facility] Potassium measurement (mass/ volume)Ordered By: Shaun Taveras on 04-05-2025 Potassium (Unsp spec) [Mass/Vol] 3.7 mmol/L 3.3-5.1 [facility] Comment on above: Hemolysis present, R esults could be affected. Pro- Brain NATRIURETIC STACEY Cannon 04-05-2025 proBNP > 02590 High <=1800 [facility] Comment on above: Result Comment: Hear t Failure Unlikely: < 300 pg/mLHeart Failure Likely< 50 Years: > 450 pg/mL50-75 Years: > 900 pg/mL>75 Years: > 1800 pg/mL Performed By: #### L 501.5200, L501.9520, L100.0100, L500.2500, L503.7505, L501.3620 ####[facility] [address] [place], [address] RBC Auto (Bld) [#/Vol]Ordere d By: Shaun Taveras on 04-05-2025 RBC (Bld) [#/Vol] 5.46 10*6/uL 4.6-6.2 [facility] Serum creatinine measurement (mass/volume)Ordered By: Shaun Taveras on 04-05-2025 Creatinine [Mass/Vol] 2.38 mg/dL High 0.70-1.[address] [facility] Serum glucose measurement (m ass/volume)Ordered By: Shaun Taveras on 04-05-2025 Glucose [Mass/Vol] 75 mg/dL 70-99 [facility] Serum or plasma calcium geena urement (mass/volume)Ordered By: Shaun Taveras on 04-05-2025 Calcium [Mass/Vol] 9.4 mg/dL 7.6-11.0 [facility] Serum or plasma creatine kin ase activityOrdered By: Rigoberto Durand on 04-05-2025 CK [Catalytic activity/Vol] 491 U/L High - [facility] Serum or plasma creatine kin ase activityOrdered By: Shaun Taveras on 04-05-2025 CK [Catalytic activity/Vol] 449 U/L High - [facility] Serum or plasma urea nitroge n measurement (mass/volume)Ordered By: Shaun Taveras on 04-05-2025 Urea nitrogen [Mass/Vol] 36 mg/dL High 4-19 [facility] Sodium levelOrdered By: Naren Taveras on 04-05-2025 Sodium [Moles/Vol] 141 mmol/L 133-145 [facility] TSH DL <= 0.005 mIU/L QnOrde red By: Shaun Taveras on 04-05-2025 TSH Qn 13.700 uIU/mL High 0.300-4.200 [facility] Thyroid Stim Hormone (TSH)on 04-05-2025 TSH 13.700 uIU/mL High 0.300-4.200 [facility] Comment on above: Performed By: #### L 501.5200, L501.9520, L100.0100, L500.2500, L503.7505, L501.3620 ####[facility] [address] [place], [address] White blood cell (WBC) count Ordered By: Shaun Taveras on 04-05-2025 WBC (Bld) [#/Vol] 6.0 10*3/uL 4.4-11.0 [facility] 12 Lead EKGon 04-01-2025 12 Lead EKG Normal [facility] Absolute lymphocyte countOrd ered By: Dax Romero on 04-01-2025 Lymphocytes Auto (Unsp spec) [#/Vol] 0.92 10*3/uL 0.83-4.51 [facility] Absolute neutrophil countOrd ered By: Dax Romero on 04-01-2025 Neutrophils (Bld) [#/Vol] 3.4 10*3/uL 2.0-7.7 [facility] Activated partial thrombopla stin time (aPTT) in platelet poor plasma by coagulation aOrdered By: Dax Romero on 04-01-2025 aPTT Coag (PPP) [Time] 47.0 s High 24.1-36.2 [facility] Anion gap in Serum or Plasma Ordered By: Dax Romero on 04-01-2025 Anion gap [Moles/Vol] 19 mmol/L High 5-[address] [facility] Automated lymphocyte count a s percentage of total leukocytesOrdered By: Dax Romero on 04-01-2025 Lymphocytes/100 WBC Auto (Unsp spec) 18.1 % Low 19-41 [facility] BUN/creatinine ratioOrdered By: Dax Romero on 04-01-2025 Urea nitrogen/Creatinine [Mass ratio] 17.4 mg/mg 10- [facility] Basic Metabolic Profile (BMP )on 04-01-2025 BUN/CRE 17.4 RATIO Normal - [facility] Comment on above: Performed By: #### L 500.2500, L100.0100, L500.3400 ####[facility] [address] [place], [address] Calcium [Mass/Vol] 9.2 mg/dL Normal 7.6-11.0 [facility] Comment on above: Performed By: #### L 500.2500, L100.0100, L500.3400 ####[facility] [address] [place], [address] Chloride [Moles/Vol] 100 mmol/L Normal 98-108 [facility] Comment on above: Performed By: #### L 500.2500, L100.0100, L500.3400 ####[facility] [address] [place], [address] CO2 [Moles/Vol] 19.7 mmol/L Low 21.0-32.0 [facility] Comment on above: Performed By: #### L 500.2500, L100.0100, L500.3400 ####[facility] [address] [place], [address] Creatinine [Mass/Vol] 2.19 mg/dL High 0.70-1.[address] [facility] Comment on above: Performed By: #### L 500.2500, L100.0100, L500.3400 ####[facility] [address] [place], [address] ECRCL 26.27 ml/min Low 50-250 [facility] Comment on above: Performed By: #### L 500.2500, L100.0100, L500.3400 ####[facility] [address] [place], [address] GAP 19 High 5-15 [facility] Comment on above: Performed By: #### L 500.2500, L100.0100, L500.3400 ####[facility] [address] [place], [address] GFR/1.73 sq M.predicted among non-blacks MDRD (S/P/Bld) [Vol rate/Area] 29 mL/min/{1.73_m2} Low >60 [facility] Comment on above: Result Comment: mL/m in/1.73m2 CKD-EPI Creatinine Equation (2020) Performed By: #### L 500.2500, L100.0100, L500.3400 ####[facility] [address] [place], [address] Glucose [Mass/Vol] 91 mg/dL Normal 70-99 [facility] Comment on above: Performed By: #### L 500.2500, L100.0100, L500.3400 ####[facility] [address] [place], [address] Potassium [Moles/Vol] 3.9 mmol/L Normal 3.3-5.[address] [facility] Comment on above: Result Comment: Hemo lysis present, Results??could be affected.?? Performed By: #### L 500.2500, L100.0100, L500.3400 ####[facility] [address] [place], [address] Sodium [Moles/Vol] 139 mmol/L Normal 133-145 [facility] Comment on above: Performed By: #### L 500.2500, L100.0100, L500.3400 ####[facility] [address] [place], [address] Urea nitrogen [Mass/Vol] 38 mg/dL High 4-19 [facility] Comment on above: Performed By: #### L 500.2500, L100.0100, L500.3400 ####[facility] [address] [place], [address] Basophil percentageOrdered B y: Dax Romero on 04-01-2025 Basophils/100 WBC (Bld) 2.0 % High 0-1 [facility] Bilirubin directOrdered By: Dax Romero on 04-01-2025 Bilirubin.direct [Mass/Vol] 1.42 mg/dL High 0.00-0.30 [facility] Comment on above: Hemolysis present, R esults could be affected. Bilirubin, totalOrdered By: Dax Romero on 04-01-2025 Bilirubin [Mass/Vol] 2.82 mg/dL High 0.00-1.30 [facility] Brain/Head without Contrasto n 04-01-2025 Brain/Head without Contrast Normal [facility] CBC W/Diff, Automatedon 03-21 Anisocytosis Ql (Bld) 1+ Normal [facility] Comment on above: Performed By: #### L 500.2500, L100.0100, L500.3400 ####[facility] [address] [place] [place], [address] PLT EST ADEQUATE Normal ADEQ [facility] Comment on above: Performed By: #### L 500.2500, L100.0100, L500.3400 ####[facility] [address] [place], [address] CT Chest, Abd, Pel w/Contras ton 04-01-2025 CT Chest, Abd, Pel w/Contrast Normal [facility] Carbon dioxide, total [Moles /volume] in Central venous bloodOrdered By: Dax Romero on 04-01-2025 CO2 [Moles/Vol] 19.7 mmol/L Low 21.0-32.0 [facility] Chloride assayOrdered By: Presley Romero on 04-01-2025 Chloride [Moles/Vol] 100 mmol/L 98-108 [facility] Emergency Department Summary on 04-01-2025 Emergency Department Summary Normal [facility] Eosinophil percentageOrdered By: Dax Romero on 04-01-2025 Eosinophils/100 WBC (Bld) 2.4 % 0-5 [facility] Erythrocyte distribution wid th ratioOrdered By: Dax Romero on 04-01-2025 Erythrocyte distribution width (RBC) [Ratio] 20.3 % High 11.6-14.6 [facility] Erythrocyte distribution wid th standard deviationOrdered By: Dax Romero on 04-01-2025 Erythrocyte distribution width (RBC) [Ratio] 61.8 fl High 35.1-43.9 [facility] Glomerular filtration rate ( GFR) estimation/1.73 sq m using serum, plasma, or whole bOrdered By: Dax Romero on 04-01-2025 GFR/1.73 sq M.predicted among non-blacks MDRD (S/P/Bld) [Vol rate/Area] 29 mL/min/{1.73_m2} Low >60 [facility] Comment on above: mL/min/1.73m2 CKD-EP I Creatinine Equation (2020) Hematocrit Auto (Bld) [Volum e fraction]Ordered By: Dax Romero on 04-01-2025 Hematocrit (Bld) [Volume fraction] 49.1 % 40-54 [facility] Hemoglobin measurementOrdere d By: Dax Romero on 04-01-2025 Hemoglobin (Bld) [Mass/Vol] 16.3 g/dL 13.0-16.5 [facility] Immature granulocytes/100 WB C Auto (Bld)Ordered By: Dax Romero on 04-01-2025 Immature granulocytes/100 WBC (Bld) 0.800 % 0.0-0.9 [facility] Comment on above: IG% - Immature Granu locytes (promyelocytes, myelocytes and metamyelocytes) > 1% indicates that a LEFT SHIFT is Present. International normalized rat io (INR) calculationOrdered By: Dax Romero on 04-01-2025 INR Coag (Bld) [Relative time] 1.6 {INR} [facility] Laboratory - Chemistry and C hemistry - challengeOrdered By: Dax Romero on 04-01-2025 AST [Catalytic activity/Vol] 40 U/L High <38 [facility] Comment on above: Hemolysis present, R esults could be affected. Laboratory - Hematology and Cell countsOrdered By: Dax Romero on 04-01-2025 Anisocytosis Ql (Bld) 1+ [facility] Liver Profileon 04-01-2025 Albumin [Mass/Vol] 3.8 g/dL Normal 3.4-4.8 [facility] Comment on above: Performed By: #### L 500.2500, L100.0100, L500.3400 ####[facility] [address] [place], [address] ALK PHOS 129 U/L Normal 40-129 [facility] Comment on above: Performed By: #### L 500.2500, L100.0100, L500.3400 ####[facility] [address] [place], [address] ALT [Catalytic activity/Vol] 12 U/L Normal <=46 [facility] Comment on above: Performed By: #### L 500.2500, L100.0100, L500.3400 ####[facility] [address] [place], [address] AST [Catalytic activity/Vol] 40 U/L High <=37 [facility] Comment on above: Result Comment: Hemo lysis present, Results??could be affected.?? Performed By: #### L 500.2500, L100.0100, L500.3400 ####[facility] [address] [place], [address] Bilirubin [Mass/Vol] 2.82 mg/dL High 0.00-1.30 [facility] Comment on above: Performed By: #### L 500.2500, L100.0100, L500.3400 ####[facility] [address] [place], [address] Bilirubin.direct [Mass/Vol] 1.42 mg/dL High 0.00-0.30 [facility] Comment on above: Result Comment: Hemo lysis present, Results??could be affected.?? Performed By: #### L 500.2500, L100.0100, L500.3400 ####[facility] [address] [place], [address] Globulin (S) [Mass/Vol] 3.0 g/dL Normal 2.2-4.2 [facility] Comment on above: Performed By: #### L 500.2500, L100.0100, L500.3400 ####[facility] [address] [place], [address] T PROT 6.9 g/dL Normal 5.9-8.4 [facility] Comment on above: Performed By: #### L 500.2500, L100.0100, L500.3400 ####[facility] [address] [place], [address] MCV (mean corpuscular volume ) determinationOrdered By: Dax Romero on 04-01-2025 MCV (RBC) [Entitic vol] 87.5 fL 80-94 [facility] Mean corpuscular hemoglobin (MCH) determinationOrdered By: Dax Romero on 04-01-2025 MCH (RBC) [Entitic mass] 29.1 pg 27.0-32.0 [facility] Mean corpuscular hemoglobin concentration (MCHC) determinationOrdered By: Dax Romero on 04-01-2025 MCHC (RBC) [Mass/Vol] 33.2 g/dL 32-[address] [facility] Mean platelet volume determi nationOrdered By: Dax Romero on 04-01-2025 Platelet mean volume (Bld) [Entitic vol] 10.8 fL 6.2-12.0 [facility] Monocyte percentageOrdered B y: Dax Romero on 04-01-2025 Monocytes/100 WBC (Bld) 10.6 % High 0-10 [facility] Neutrophil percentageOrdered By: Dax Romero on 04-01-2025 Neutrophils/100 WBC (Bld) 66.1 % 47-70 [facility] Nucleated red blood cell per centageOrdered By: Dax Romero on 04-01-2025 Nucleated RBC/100 WBC (Bld) [Ratio] 0 % 0-5 [facility] Partial Thromboplast Timeon 04-01-2025 aPTT Coag (Bld) [Time] 47.0 s High 24.1-36.2 [facility] Comment on above: Performed By: #### L 300.4310, L300.3900 ####[facility] [address] [place], [address] Platelet countOrdered By: Presley Romero on 04-01-2025 Platelets (Bld) [#/Vol] 203 10*3/uL 150-450 [facility] Platelet estimateOrdered By: Dax Romero on 04-01-2025 Platelets LM Ql (Bld) ADEQUATE ADEQ [facility] Potassium measurement (mass/ volume)Ordered By: Dax Romero on 04-01-2025 Potassium (Unsp spec) [Mass/Vol] 3.9 mmol/L 3.3-5.1 [facility] Comment on above: Hemolysis present, R esults could be affected. Prothrombin Time w/INRon INR Coag (PPP) [Relative time] 1.6 {INR} Normal [facility] Comment on above: Performed By: #### L 300.4310, L300.3900 ####[facility] [address] [place], [address] PT Coag (PPP) [Time] 19.3 s High 11.7-14.9 [facility] Comment on above: Performed By: #### L 300.4310, L300.3900 ####[facility] [address] [place], [address] INR Normal [facility] Comment on above: Result Comment: JAZZMINE, SPOKE WITH MARK Performed By: #### L 300.3900 ####[facility] [address] [place], [place], [address] PROTIME Normal 11.7-14.9 [facility] Comment on above: Result Comment: JAZZMINE, SPOKE WITH MARK Performed By: #### L 3003900 ####[facility] [address] [place], [place], [id number] Prothrombin timeOrdered By: Dax Romero on 04-01-2025 PT Coag (PPP) [Time] 19.3 s High 11.7-14.9 [facility] RBC Auto (Bld) [#/Vol]Ordere d By: Dax Romero on 04-01-2025 RBC (Bld) [#/Vol] 5.61 10*6/uL 4.6-6.2 [facility] Serum creatinine measurement (mass/volume)Ordered By: Dax Romero on 04-01-2025 Creatinine [Mass/Vol] 2.19 mg/dL High 0.70-1.[address] [facility] Serum globulin measurementOr dered By: Dax Romero on 04-01-2025 Globulin (S) [Mass/Vol] 3.0 g/dL 2.2-4.2 [facility] Serum glucose measurement (m ass/volume)Ordered By: Dax Romero on 04-01-2025 Glucose [Mass/Vol] 91 mg/dL 70-99 [facility] Serum or plasma alanine clay otransferase (ALT) measurementOrdered By: Dax Romero on 04-01-2025 ALT [Catalytic activity/Vol] 12 U/L <47 [facility] Serum or plasma albumin geena urement (mass/volume)Ordered By: Dax Romero on 04-01-2025 Albumin [Mass/Vol] 3.8 g/dL 3.4-4.8 [facility] Serum or plasma alkaline camila sphatase measurementOrdered By: Dax Romero on 04-01-2025 ALP [Catalytic activity/Vol] 129 U/L 40-129 [facility] Serum or plasma calcium geena urement (mass/volume)Ordered By: Dax Romero on 04-01-2025 Calcium [Mass/Vol] 9.2 mg/dL 7.6-11.0 [facility] Serum or plasma urea nitroge n measurement (mass/volume)Ordered By: Dax Nick on 04-01-2025 Urea nitrogen [Mass/Vol] 38 mg/dL High 4-19 [facility] Sodium levelOrdered By: Darrin klein Nick on 04-01-2025 Sodium [Moles/Vol] 139 mmol/L 133-145 [facility] Spine Cervical without Contr ason 04-01-2025 Spine Cervical without Contras Normal [facility] Total proteinOrdered By: Aye quarles Romero on 04-01-2025 Protein [Mass/Vol] 6.9 g/dL 5.9-8.4 [facility] White blood cell (WBC) count Ordered By: Dax Nick on 04-01-2025 WBC (Bld) [#/Vol] 5.1 10*3/uL 4.4-11.0 [facility] Progress Noteon 03-16-2025 Progress Note Chart reviewed. Attempted to contact patient for transitional follow up. No answer. Unable to leave a VM, as VM box is full. Patient's 30 day transitional period ends tomorrow. Will plan for transitional program closure tomorrow (03/17). [facility] 36on 03-15-2025 36 Noted. In reviewing pts dispense report. He is filling medication through [facility] retail pharmacy. With current dosing of [address] [facility] 36 It is per pt's preference if Demadex taken a total of 40 mg once daily, vs 20 mg twice daily. [facility] 36on 03-11-2025 36 Name of caller: Yanna Contact phone number: [phone] Relationship to Patient: [facility] Provider: Petra Renteria Practice: [facility] Chief Complaint/Reason for Call: Delroy is [...] should have some medication left. Please advise Normal [facility] 36on 03-04-2025 36 ----- Message from CHLOE Suarez CNP sent at 03/04/2025 1:06 PM EDT ----- Pt has continued renal insuffiencey in the setting of severe LV dysfunction. I would recommend he continue his present diuretics, including Demadex 40 mg daily. Please ask he have a repeat BMP in 1 week to document stability. ----- Message ----- From: Gena [employer] [facility] Results In Sent: 03/04/2025 2:06 AM EDT To: CHLOE Ch CNP I attempted to call Megan. His phone went to [employer]. The Mailbox is full. Will try again [...] an appointment with his PCP on 03/10/25. Normal [facility] Progress Noteon 03-04-2025 Progress Note Pt has continued renal insuffiencey in the setting of severe LV dysfunction. I would recommend he continue his present diuretics, including Demadex 40 mg daily. Please ask he have a repeat BMP in 1 week to document stability. Normal [facility] Office Visiton 03-03-2025 Follow-up visit [id number] Megan Nascimento 1940 M Date Provider Department Center 03/03/2025 [id number] RENTERIA MG [facility] VARUN SHMG CV Susan Family History Problem Relation Age of Onset High Blood Pressure Father High Blood Pressure Mother Family Status - Relation Status Age at Father Mother Level of Service:95332 OK OFFICE/OUTPATIENT ESTABLISHED MOD MDM 30 MIN Reason for Visit and Comments: Hospital Follow-up [832] Normal [facility] Progress Noteon 03-03-[address] [facility] Cardiology Office Note DATE of SERVICE: [...] defibrillator placement. He was recently admitted to [facility] 01/28/2025-02/01/2025 and treated for heart [...] is 1 (more content not included)... 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 Yes (Will route to Jamila SHEARER, to complete SDOH and follow up with patient next week.) Spoke with patient. Re-introduced myself and my role on [facility]'s transitional team. He reports that the [...] was thrown off this morning since the [facility] nurse was out. He denies any [...] needs at this time. Will route to Jamila SHEARER, to complete transitional follow up call next week, as well as complete SDOH assessment. Future transitional outreach scheduled (Any s/s of CHF exacerbation? Has he seen his PCP yet? How are his legs looking? Any s/s of cellulitis?). [facility] Progress Noteon 02-24-2025 Progress Note Chart reviewed. Noted that patient is now scheduled to see cardiology (Everton Renteria CNP) on 03/03. Attempted to contact patient for transitional follow up. No answer. Left VM requesting a return call back. Future transitional outreach scheduled. Normal [facility] [id number] 02-22-2025 [id number] Patient Choice Patient Name: MEGAN NASCIMENTO Date of : [address] [facility] Progress Noteon 02-17-2025 Progress Note 02/17/25 1332 Transitions Post-Discharge Call - Initial Reviewed patients discharge instructions? 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 [...] HHC ordered? Yes If yes, which agency? [facility] Was HHC initiated if ordered? 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 To Be Determined At Next [...] that his PCP was listed incorrectly in [employer]. PCP updated in [employer]. Patient reports that he sees Dr. Bourne. [...] scheduled (Did he see/schedule with cardiology/PCP?). Normal [facility] BASIC METABOLIC PANELon 07-2 Anion gap [Moles/Vol] 12 mmol/L Normal 3-13 [facility] Comment on above: Performed By: #### L AB15 ####Heel Seater: DIGNA MORALES ([phone])[facility]ENTERCarlos BARBHRASHN (SBHLAB)[address] Calcium [Mass/Vol] 8.8 mg/dL Normal 8.8-10.0 [facility] Comment on above: Performed By: #### L AB15 ####Heel Seater: DIGNA MORALES ([phone])[facility]ENTERA BARBKENDALL (SBHLAB)[address] Chloride [Moles/Vol] 107 mmol/L Normal 98-107 [facility] Comment on above: Performed By: #### L AB15 ####Heel Seater: DIGNA MORALES ([phone])[facility]ENTERA BARBHARSHN (SBHLAB)[address] CO2 [Moles/Vol] 22 mmol/L Low 23-31 [facility] Comment on above: Performed By: #### L AB15 ####Heel Seater: DIGNA MORALES ([phone])[facility] BARBHARSHN (SBHLAB)[address] Creatinine [Mass/Vol] 1.94 mg/dL High 0.72-1.25 [facility] Comment on above: Performed By: #### L AB15 ####Heel Seater: DIGNA MORALES ([phone])[facility] (SBHLAB)[address] GLOMERULAR FILTRATION RATE ML/MIN/1.73 SQ M.PREDICTED 33.3 mL/min/1.73m*2 Low >60.0 [facility] Comment on above: Result Comment: Calc ulation based on the Chronic Kidney Disease Epidemiology Collaboration (CKD-EPI) equation refit without adjustment for race Performed By: #### L AB15 ####Heel Seater: DIGNA MORALES ([id number])[facility] (SBHLAB)[address] Glucose [Mass/Vol] 101 mg/dL Normal 82-115 [facility] Comment on above: Performed By: #### L AB15 ####Heel Seater: DIGNA MORALES ([phone])[facility] (SBHLAB)[address] Potassium [Moles/Vol] 3.5 mmol/L Normal 3.5-5.1 [facility] Comment on above: Result Comment: [facility] potassium values may be up to 0.5 mmol/L lower than serum values. Performed By: #### L AB15 ####Heel Seater: DIGNA MORALES ([phone])[facility] (SBHLAB)[address] [place] [address] Sodium [Moles/Vol] 141 mmol/L Normal 136-145 [facility] Comment on above: Performed By: #### L AB15 ####Heel Seater: DIGNA MORALES ([phone])[facility] (HLAB)[address] Urea nitrogen [Mass/Vol] 24 mg/dL High 9-23 [facility] Comment on above: Performed By: #### L AB15 ####Heel Seater: DIGNA MORALES ([phone])[facility] (SBHLAB)[address] [place] [address] Basic metabolic 1998 panelon 02-15-2025 Anion gap [Moles/Vol] 12 mmol/L 3 - 13 mmol/L [facility] Calcium [Mass/Vol] 8.8 mg/dL 8.8 - 10. 0 mg/dL [facility] Chloride [Moles/Vol] 107 mmol/L 98 - 10 7 mmol/L [facility] CO2 [Moles/Vol] 22 mmol/L Low 23 - 31 mmol/L [facility] Creatinine [Mass/Vol] 1.94 mg/dL High 0.72 - 1.25 mg/dL [facility] GFR/1.73 sq M.predicted (S/P/Bld) [Vol rate/Area] 33.3 mL/min Low - PINF [facility] Comment on above: Calculation based on the Chronic Kidney Disease Epidemiology Collaboration (CKD-EPI) equation refit without adjustment for race Glucose [Mass/Vol] 101 mg/dL 82 - 115 mg/dL [facility] Interpretation and review of laboratory results Abnormal [facility] Potassium [Moles/Vol] 3.5 mmol/L 3.5 - 5.1 mmol/L [facility] Comment on above: Plasma potassium erika ues may be up to 0.5 mmol/L lower than serum values. Sodium [Moles/Vol] 141 mmol/L 136 - 145 mmol/L [facility] Urea nitrogen [Mass/Vol] 24 mg/dL High 9 - 23 mg/d L [facility] CBC (HEMOGRAM)on 02-15-2025 Erythrocyte distribution width (RBC) [Ratio] 19.1 % High 11.5-15.0 [facility] Comment on above: Performed By: #### L AB103, [id number], LAB17 #### Heel Seater: JORGE A MALDONADO ([id number]) [address] Hematocrit (Bld) [Volume fraction] 45.9 % Normal 40.0-52.0 [facility] Comment on above: Performed By: #### L AB103, [id number], LAB17 #### Heel Seater: JORGE A MALDONADO ([id number]) [facility]) [address] [place] [address] Hemoglobin (Bld) [Mass/Vol] 15.2 g/dL Normal 13.0-18.0 [facility] Comment on above: Performed By: #### L AB103, [id number], LAB17 #### Heel Seater: JORGE A MALDONADO ([id number]) [facility]) [address] [place] [address] MCH (RBC) [Entitic mass] 28.7 pg Normal 26.0-34.0 [facility] Comment on above: Performed By: #### Russell AB103, [id number], LAB17 #### Heel Seater: JORGE A MALDONADO ([id number]) [facility]) [address] [place] [address] MCHC 33.1 % Normal 30.5-36.0 [facility] Comment on above: Performed By: #### Russell ABElisa, [id number], LAB17 #### Heel Seater: JORGE A MALDONADO ([id number]) [facility] ([facility]) [address] [place] [address] MCV (RBC) [Entitic vol] 86.8 fL Normal 77.0-99.0 [facility] Comment on above: Performed By: #### Russell AB103, [id number], LAB17 #### Heel Seater: JORGE A MALDONADO ([id number]) [facility]) [address] [place] [address] Platelet mean volume (Bld) [Entitic vol] 11.0 fL Normal 9.0-12.7 [facility] Comment on above: Performed By: #### Russell AB103, [id number], LAB17 #### Heel Seater: JORGE A MALDONADO ([id number]) [facility] ([facility]) [address] [place] [address] Platelets (Bld) [#/Vol] 205 10*3/uL Normal 140-440 [facility] Comment on above: Performed By: #### Russell AB103, [id number], LAB17 #### Heel Seater: JORGE A MALDONADO ([id number]) [facility] ([facility]) [address] [place] [address] RBC (Bld) [#/Vol] 5.29 10*6/uL Normal 4.40-5.90 [facility] Comment on above: Performed By: #### L AB103, [id number], LAB17 #### Heel Seater: JORGE A MALDONADO ([id number]) [facility]) [address] [place] [address] WBC (Bld) [#/Vol] 4.0 10*3/uL Normal 3.6-10.[address] [facility] Comment on above: Performed By: #### L AB103, [id number], LAB17 #### Heel Seater: JORGE A MALDONADO ([id number]) [facility] ([facility]) [address] [place], [place] [id number] [facility] CBC panel Auto (Bld)on 02-15 Erythrocyte distribution width (RBC) [Ratio] 19.1 % High 11.5 - 15.0 % [facility] Hematocrit (Bld) [Volume fraction] 45.9 % 40.0 - 52.0 % [facility] Hemoglobin (Bld) [Mass/Vol] 15.2 g/dL 13.0 - 18.0 g/dL [facility] Interpretation and review of laboratory results Abnormal [facility] MCH (RBC) [Entitic mass] 28.7 pg 26. 0 - 34.[address] [facility] MCHC (RBC) [Mass/Vol] 33.1 % 30.5 - 36.0 % [facility] MCV (RBC) [Entitic vol] 86.8 fL 77.0 - 99.[address] [facility] Platelet mean volume (Bld) [Entitic vol] 11 fL 9.0 - 12.[address] [facility] Platelets (Bld) [#/Vol] 205 10*3/uL 140 - 440 10*3/uL [facility] RBC (Bld) [#/Vol] 5.29 10*6/uL 4.40 - 5.9 0 10*6/uL [facility] WBC (Bld) [#/Vol] 4 10*3/uL 3.6 - 10.7 10*3/uL [facility] Laboratory - Chemistry and C hemistry - challengeon 02-15-2025 Glucose [Mass/Vol] 118 mg/dL High 70 - 100 mg/dL [facility] Glucose [Mass/Vol] 89 mg/dL 70 - 100 mg/dL [facility] Glucose [Mass/Vol] 69 mg/dL Low 70 - 100 mg/dL [facility] No Panel Informationon 02-15 Interpretation and review of laboratory results Abnormal [facility] Performed by: Anay Romeo, [address] [place] [address] [place] [address] CLIA ID: [id number] [facility] Interpretation and review of laboratory results Normal [facility] Performed by: [facility], [address] [facility] [address] CLIA ID: [id number] [facility] Interpretation and review of laboratory results Abnormal [facility] Performed by: Anay Romeo, [address] [facility] [address] CLIA ID: [id number] [facility] Nursing Noteon 02-15-2025 Nursing Note Pt ok to discharge home per , juan alberto wnl. Pt understood discharge instructions. Son to transport pt home. IV removed prior to pt leaving hospital. Pt received meds to bed. Normal [facility] [id number] 02-14-2025 [id number] SW met with pt at [facility] to complete the 30 day Readmission questionnaire. SW asked for pt's consent and pt agreed. Pt was cooperative and answered all questions. SW will email questionnaire at the end of the week to [email or web address] [facility] BASIC METABOLIC PANELon 01-19 Anion gap [Moles/Vol] 13 mmol/L Normal 3-13 [facility] Comment on above: Performed By: #### L AB15 ####Heel Seater: DIGNA MORALES ([phone])[facility] ([facility])[address] [place] [address] Calcium [Mass/Vol] 8.9 mg/dL Normal 8.8-10.0 [facility] Comment on above: Performed By: #### L AB15 ####Heel Seater: DIGNA MORALES ([phone])[facility] (SBHLAB)[address] [place] [address] [place] Chloride [Moles/Vol] 107 mmol/L Normal 98-107 [facility] Comment on above: Performed By: #### L AB15 ####Heel Seater: DIGNA MORALES ([id number])[facility] (SBHLAB)[address] [place] [address] [place] CO2 [Moles/Vol] 21 mmol/L Low 23-31 [facility] Comment on above: Performed By: #### L AB15 ####Heel Seater: DIGNA MORALES ([phone])[facility] ([facility] Creatinine [Mass/Vol] 1.77 mg/dL High 0.72-1.25 [facility] Comment on above: Performed By: #### L AB15 ####Heel Seater: DIGNA MORALES ([phone])[facility] ([facility])[address] [place] [address] [place] GLOMERULAR FILTRATION RATE ML/MIN/1.73 SQ M.PREDICTED 37.2 mL/min/1.73m*2 Low >60.0 [facility] Comment on above: Result Comment: Calc ulation based on the Chronic Kidney Disease Epidemiology Collaboration (CKD-EPI) equation refit without adjustment for race Performed By: #### L AB15 ####Heel Seater: DIGNA MORALES ([id number])[facility] ([facility])[address] Glucose [Mass/Vol] 96 mg/dL Normal 82-115 [facility] Comment on above: Performed By: #### L AB15 ####Heel Seater: DIGNA MORALES ([id number])[facility] ([facility])[address] [place] [address] Potassium [Moles/Vol] 3.5 mmol/L Normal 3.5-5.1 [facility] Comment on above: Result Comment: [facility] potassium values may be up to 0.5 mmol/L lower than serum values. Performed By: #### L AB15 ####Heel Seater: DIGNA MORALES ([phone])[facility] ([facility])[address] Sodium [Moles/Vol] 141 mmol/L Normal 136-145 [facility] Comment on above: Performed By: #### L AB15 ####Heel Seater: DIGNA MORALES ([id number])[facility] ([facility])[address] Urea nitrogen [Mass/Vol] 22 mg/dL Normal 9-23 [facility] Comment on above: Performed By: #### L AB15 ####Heel Seater: DIGNA MORALES ([phone])[facility] ([facility])[address] Basic metabolic 1998 panelon 02-14-2025 Anion gap [Moles/Vol] 13 mmol/L 3 - 13 mmol/L [facility] Calcium [Mass/Vol] 8.9 mg/dL 8.8 - 10. 0 mg/dL [facility] Chloride [Moles/Vol] 107 mmol/L 98 - 10 7 mmol/L [facility] CO2 [Moles/Vol] 21 mmol/L Low 23 - 31 mmol/L [facility] Creatinine [Mass/Vol] 1.77 mg/dL High 0.72 - 1.25 mg/dL [facility] GFR/1.73 sq M.predicted (S/P/Bld) [Vol rate/Area] 37.2 mL/min Low - PINF [facility] Comment on above: Calculation based on the Chronic Kidney Disease Epidemiology Collaboration (CKD-EPI) equation refit without adjustment for race Glucose [Mass/Vol] 96 mg/dL 82 - 115 mg/dL [facility] Interpretation and review of laboratory results Abnormal [facility] Potassium [Moles/Vol] 3.5 mmol/L 3.5 - 5.1 mmol/L [facility] Comment on above: Plasma potassium erika ues may be up to 0.5 mmol/L lower than serum values. Sodium [Moles/Vol] 141 mmol/L 136 - 145 mmol/L [facility] Urea nitrogen [Mass/Vol] 22 mg/dL 9 - 23 mg/d L [facility] CBC (HEMOGRAM)on 02-14-2025 Erythrocyte distribution width (RBC) [Ratio] 19.2 % High 11.5-15.0 [facility] Comment on above: Performed By: #### L AB294 ####Heel Seater: DIGNA MORALES ([phone])[facility] ([facility])[address] Hematocrit (Bld) [Volume fraction] 46.2 % Normal 40.0-52.0 [facility] Comment on above: Performed By: #### L AB294 ####Heel Seater: DIGNA MORALES ([id number])[facility]ENTERCarlos DAVISGALLUP INDIAN MEDICAL CENTERAaron ([facility])[address] Hemoglobin (Bld) [Mass/Vol] 15.3 g/dL Normal 13.0-18.0 [facility] Comment on above: Performed By: #### L AB294 ####Heel Seater: DIGNA MORALES ([phone])[facility] ([facility])[address] MCH (RBC) [Entitic mass] 28.5 pg Normal 26.0-34.0 [facility] Comment on above: Performed By: #### L AB294 ####Heel Seater: DIGNA MORALES ([id number])[facility] ([facility])[address] MCHC 33.1 % Normal 30.5-36.0 [facility] Comment on above: Performed By: #### L AB294 ####Heel Seater: DIGNA MORALES ([phone])[facility] ([facility])[address] MCV (RBC) [Entitic vol] 86.2 fL Normal 77.0-99.0 [facility] Comment on above: Performed By: #### L AB294 ####Heel Seater: DIGNA MORALES ([id number])[facility] ([facility])[address] Platelet mean volume (Bld) [Entitic vol] 10.9 fL Normal 9.0-12.7 [facility] Comment on above: Performed By: #### L AB294 ####Heel Seater: DIGNA MORALES ([id number])[facility] ([facility])[address] Platelets (Bld) [#/Vol] 209 10*3/uL Normal 140-440 [facility] Comment on above: Performed By: #### L AB294 ####Heel Seater: DIGNA TAPIACER ([phone])[facility] CENTERCarlos DAVISGALLUP INDIAN MEDICAL CENTERAaron (SB[facility])[address] [place] [address] RBC (Bld) [#/Vol] 5.36 10*6/uL Normal 4.40-5.90 [facility] Comment on above: Performed By: #### L AB294 ####Heel Seater: DIGNA MORALES ([id number])[facility] (SBAB)[address] [place] [address] WBC (Bld) [#/Vol] 4.5 10*3/uL Normal 3.6-10.7 [facility] Comment on above: Performed By: #### L AB294 ####Heel Seater: DIGNA MORALES ([phone])[facility] ([facility])[address] [place] [address] CBC panel Auto (Bld)on 02-14 Erythrocyte distribution width (RBC) [Ratio] 19.2 % High 11.5 - 15.0 % [facility] Hematocrit (Bld) [Volume fraction] 46.2 % 40.0 - 52.0 % [facility] Hemoglobin (Bld) [Mass/Vol] 15.3 g/dL 13.0 - 18.0 g/dL [facility] Interpretation and review of laboratory results Abnormal [facility] MCH (RBC) [Entitic mass] 28.5 pg 26. 0 - 34.[address] [facility] MCHC (RBC) [Mass/Vol] 33.1 % 30.5 - 36.0 % [facility] MCV (RBC) [Entitic vol] 86.2 fL 77.0 - 99.[address] [facility] Platelet mean volume (Bld) [Entitic vol] 10.9 fL 9.0 - 12.[address] [facility] Platelets (Bld) [#/Vol] 209 10*3/uL 140 - 440 10*3/uL [facility] RBC (Bld) [#/Vol] 5.36 10*6/uL 4.40 - 5.9 0 10*6/uL [facility] WBC (Bld) [#/Vol] 4.5 10*3/uL 3.6 - 10.7 10*3/uL [facility] Laboratory - Chemistry and C hemistry - challengeon 02-14-2025 Glucose [Mass/Vol] 103 mg/dL High 70 - 100 mg/dL [facility] Glucose [Mass/Vol] 85 mg/dL 70 - 100 mg/dL [facility] Glucose [Mass/Vol] 94 mg/dL 70 - 100 mg/dL [facility] Glucose [Mass/Vol] 83 mg/dL 70 - 100 mg/dL [facility] No Panel Informationon 02-14 Interpretation and review of laboratory results Abnormal [facility] Performed by: Anay Romeo [address] [place] [address] CLIA ID: [id number] [facility] Interpretation and review of laboratory results Normal [facility] Performed by: Anay Romeo [address] [place] [address] CLIA ID: [id number] [facility] Interpretation and review of laboratory results Normal [facility] Performed by: Anay Romeo [address] [place] [address] CLIA ID: [id number] [facility] Interpretation and review of laboratory results Normal [facility] Performed by: Anay Romeo [address] [place] [address] CLIA ID: [id number] [facility] Nursing Noteon 02-14-2025 Nursing Note Wound Care consulted for Pressure Injury Prevention. Pt's Simon score= 18 on 02/14 Pt's pressure points assessed. Pt turned independently in the bed for posterior assessment. Pt's Heels, Buttocks/coccyx, Back, Elbows, Occiput and ears all intact. Rosita and blanchable tissues noted to coccyx. Instructed [...] questions or concerns. Lavonne Grace RN Normal [facility] BASIC METABOLIC PANELon 07-2 Anion gap [Moles/Vol] 14 mmol/L High 3-13 [facility] Comment on above: Performed By: #### L AB103, [id number], LAB17 #### Heel Seater: JORGE A MALDONADO ([phone]) [facility] ([facility]) [address] [place] [address] Calcium [Mass/Vol] 8.8 mg/dL Normal 8.8-10.0 [facility] Comment on above: Performed By: #### L AB103, [id number], LAB17 #### Heel Seater: JORGE A MALDONADO ([phone]) [facility] [address] [place] [address] Chloride [Moles/Vol] 107 mmol/L Normal 98-107 [facility] Comment on above: Performed By: #### L AB103, [id number], LAB17 #### Heel Seater: JORGE A MALDONADO ([phone]) [facility] ([facility]) [address] [place] [address] CO2 [Moles/Vol] 21 mmol/L Low 23-31 [facility] Comment on above: Performed By: #### L AB103, [id number], LAB17 #### Heel Seater: JORGE A MALDONADO ([phone]) [facility] ([facility]) [address] [place] [address] Creatinine [Mass/Vol] 1.85 mg/dL High 0.72-1.25 [facility] Comment on above: Performed By: #### L AB103, [id number], LAB17 #### Heel Seater: JORGE A MALDONADO ([phone]) [facility] [address] [place] [address] GLOMERULAR FILTRATION RATE ML/MIN/1.73 SQ M.PREDICTED 35.3 mL/min/1.73m*2 Low >60.0 [facility] Comment on above: Result Comment: Calc ulation based on the Chronic Kidney Disease Epidemiology Collaboration (CKD-EPI) equation refit without adjustment for race Performed By: #### L AB103, [id number], LAB17 #### Heel Seater: JORGE A MALDONADO ([phone]) [facility]) [address] [place] [address] Glucose [Mass/Vol] 84 mg/dL Normal 82-115 [facility] Comment on above: Performed By: #### L AB103, [id number], LAB17 #### Heel Seater: JORGE A MALDONADO ([phone]) [facility]) [address] [place] [address] Potassium [Moles/Vol] 3.8 mmol/L Normal 3.5-5.1 [facility] Comment on above: Result Comment: [facility] potassium values may be up to 0.5 mmol/L lower than serum values. Performed By: #### L AB103, [id number], LAB17 #### Heel Seater: JORGE A MALDONADO ([phone]) [facility]) [address] [place] [address] Sodium [Moles/Vol] 142 mmol/L Normal 136-145 [facility] Comment on above: Performed By: #### L AB103, [id number], LAB17 #### Heel Seater: JORGE A MALDONADO ([phone]) [facility]) [address] [place] [address] Urea nitrogen [Mass/Vol] 21 mg/dL Normal 9-23 [facility] Comment on above: Performed By: #### L AB103, [id number], LAB17 #### Heel Seater: JORGE A MALDONADO ([phone]) [facility]) [address] [place] [address] Basic metabolic 1998 panelOr dered By: Shaun Topete on 02-13-2025 Anion gap [Moles/Vol] 14 mmol/L High 3 - 13 mmol/L [facility] Calcium [Mass/Vol] 8.8 mg/dL 8.8 - 10. 0 mg/dL [facility] Chloride [Moles/Vol] 107 mmol/L 98 - 10 7 mmol/L [facility] CO2 [Moles/Vol] 21 mmol/L Low 23 - 31 mmol/L [facility] Creatinine [Mass/Vol] 1.85 mg/dL High 0.72 - 1.25 mg/dL [facility] GFR/1.73 sq M.predicted (S/P/Bld) [Vol rate/Area] 35.3 mL/min Low - PINF [facility] Comment on above: Calculation based on the Chronic Kidney Disease Epidemiology Collaboration (CKD-EPI) equation refit without adjustment for race Glucose [Mass/Vol] 84 mg/dL 82 - 115 mg/dL [facility] Interpretation and review of laboratory results Abnormal [facility] Potassium [Moles/Vol] 3.8 mmol/L 3.5 - 5.1 mmol/L [facility] Comment on above: Plasma potassium erika ues may be up to 0.5 mmol/L lower than serum values. Sodium [Moles/Vol] 142 mmol/L 136 - 145 mmol/L [facility] Urea nitrogen [Mass/Vol] 21 mg/dL 9 - 23 mg/d L [facility] CBC (HEMOGRAM)on 02-13-2025 Erythrocyte distribution width (RBC) [Ratio] 19.2 % High 11.5-15.0 [facility] Comment on above: Performed By: #### L AB103, [id number], LAB17 #### Heel Seater: JORGE A MALDONADO ([phone]) [address] Hematocrit (Bld) [Volume fraction] 48.4 % Normal 40.0-52.0 [facility] Comment on above: Performed By: #### L AB103, [id number], LAB17 #### Heel Seater: JORGE A MALDONADO ([phone]) [facility]) [address] [place] [address] Hemoglobin (Bld) [Mass/Vol] 15.6 g/dL Normal 13.0-18.0 [facility] Comment on above: Performed By: #### L AB103, [id number], LAB17 #### Heel Seater: JORGE A MALDONADO ([phone]) [facility] ([facility]) [address] [place] [address] MCH (RBC) [Entitic mass] 28.3 pg Normal 26.0-34.0 [facility] Comment on above: Performed By: #### L AB103, [id number], LAB17 #### Heel Seater: JORGE A MALDONADO ([phone]) [facility] ([facility]) [address] [place] [address] MCHC 32.2 % Normal 30.5-36.0 [facility] Comment on above: Performed By: #### L AB103, [id number], LAB17 #### Heel Seater: JORGE A MALDONADO ([phone]) [facility] ([facility]) [address] [place] [address] MCV (RBC) [Entitic vol] 87.7 fL Normal 77.0-99.0 [facility] Comment on above: Performed By: #### L AB103, [id number], LAB17 #### Heel Seater: JORGE A MALDONADO ([phone]) [facility] ([facility]) [address] [place] [address] Platelet mean volume (Bld) [Entitic vol] 10.8 fL Normal 9.0-12.7 [facility] Comment on above: Performed By: #### L AB103, [id number], LAB17 #### Heel Seater: JOGRE A MALDONADO ([phone]) [facility] ([facility]) [address] [place] [address] Platelets (Bld) [#/Vol] 224 10*3/uL Normal 140-440 [facility] Comment on above: Performed By: #### L AB103, [id number], LAB17 #### Heel Seater: JORGE A MALDONADO ([phone]) [facility]) [address] [place] [address] RBC (Bld) [#/Vol] 5.52 10*6/uL Normal 4.40-5.90 [facility] Comment on above: Performed By: #### L AB103, [id number], LAB17 #### Heel Seater: JORGE A MALDONADO ([phone]) [facility] ([facility]) [address] [place] [address] WBC (Bld) [#/Vol] 4.4 10*3/uL Normal 3.6-10.[address] [facility] Comment on above: Performed By: #### L AB103, [id number], LAB17 #### Heel Seater: JORGE A MALDONADO ([phone]) [facility] ([facility]) [address] [place] [address] CBC panel Auto (Bld)on 02-13 Erythrocyte distribution width (RBC) [Ratio] 19.2 % High 11.5 - 15.0 % [facility] Hematocrit (Bld) [Volume fraction] 48.4 % 40.0 - 52.0 % [facility] Hemoglobin (Bld) [Mass/Vol] 15.6 g/dL 13.0 - 18.0 g/dL [facility] Interpretation and review of laboratory results Abnormal [facility] MCH (RBC) [Entitic mass] 28.3 pg 26. 0 - 34.[address] [facility] MCHC (RBC) [Mass/Vol] 32.2 % 30.5 - 36.0 % [facility] MCV (RBC) [Entitic vol] 87.7 fL 77.0 - 99.[address] [facility] Platelet mean volume (Bld) [Entitic vol] 10.8 fL 9.0 - 12.[address] [facility] Platelets (Bld) [#/Vol] 224 10*3/uL 140 - 440 10*3/uL [facility] RBC (Bld) [#/Vol] 5.52 10*6/uL 4.40 - 5.9 0 10*6/uL [facility] WBC (Bld) [#/Vol] 4.4 10*3/uL 3.6 - 10.7 10*3/uL [facility] Laboratory - Chemistry and C hemistry - challengeon 02-13-2025 Glucose [Mass/Vol] 100 mg/dL 70 - 100 mg/dL [facility] Glucose [Mass/Vol] 112 mg/dL High 70 - 100 mg/dL [facility] Glucose [Mass/Vol] 133 mg/dL High 70 - 100 mg/dL [facility] Glucose [Mass/Vol] 85 mg/dL 70 - 100 mg/dL [facility] No Panel Informationon 02-13 Interpretation and review of laboratory results Normal [facility] Performed by: Jacques Lin [facility] [address] CLIA ID: [id number] [facility] Interpretation and review of laboratory results Abnormal [facility] Performed by: Jacques Lin [facility], [facility] [address] CLIA ID: [id number] [facility] Interpretation and review of laboratory results Abnormal [facility] Performed by: Jacques Lin [facility], [facility] [address] CLIA ID: [id number] [facility] Interpretation and review of laboratory results Normal [facility] Performed by: Jacques Lin [facility] [address] CLIA ID: [id number] [facility] BASIC METABOLIC PANELon 01-19 Anion gap [Moles/Vol] 14 mmol/L High 3-13 [facility] Comment on above: Performed By: #### L AB15, [id number] ####Heel Seater: DIGNA MORALES ([phone])[facility] ([facility])[address] [place] [address] Calcium [Mass/Vol] 8.4 mg/dL Low 8.8-10.0 [facility] Comment on above: Performed By: #### L AB15, [id number] ####Heel Seater: DIGNA MORALES ([phone])[facility] ([facility])[address] [place] [address] [place] Chloride [Moles/Vol] 106 mmol/L Normal 98-107 [facility] Comment on above: Performed By: #### L AB15, [id number] ####Heel Seater: DIGNA MORALES ([phone])[facility] ([facility])[address] [place] [address] [place] CO2 [Moles/Vol] 21 mmol/L Low 23-31 [facility] Comment on above: Performed By: #### L AB15, [id number] ####Heel Seater: DIGNA MORALES ([phone])[facility] [place] ([facility])[address] Creatinine [Mass/Vol] 1.73 mg/dL High 0.72-1.25 [facility] Comment on above: Performed By: #### L AB15, [id number] ####Heel Seater: DIGNA MORALES ([phone])[facility] [place] ([facility])[address] GLOMERULAR FILTRATION RATE ML/MIN/1.73 SQ M.PREDICTED 38.2 mL/min/1.73m*2 Low >60.0 [facility] Comment on above: Result Comment: Calc ulation based on the Chronic Kidney Disease Epidemiology Collaboration (CKD-EPI) equation refit without adjustment for race Performed By: #### L AB15, [id number] ####Heel Seater: DIGNA MORALES ([phone])[facility] [place] ([facility])[address] Glucose [Mass/Vol] 82 mg/dL Normal 82-115 [facility] Comment on above: Performed By: #### L AB15, [id number] ####Heel Seater: DIGNA MORALES ([phone])[facility] ([facility])[address] [place] [address] [place] Potassium [Moles/Vol] 2.8 mmol/L Low 3.5-5.1 [facility] Comment on above: Result Comment: [facility] potassium values may be up to 0.5 mmol/L lower than serum values. Performed By: #### L AB15, [id number] ####Heel Seater: DIGNA MORALES ([phone])[facility] ([facility])[address] Sodium [Moles/Vol] 141 mmol/L Normal 136-145 [facility] Comment on above: Performed By: #### L AB15, [id number] ####Heel Seater: DIGNA MORALES ([phone])[facility] ([facility])[address] Urea nitrogen [Mass/Vol] 22 mg/dL Normal 9-23 [facility] Comment on above: Performed By: #### L AB15, [id number] ####Heel Seater: DIGNA MORALES ([phone])[facility] ([facility])[address] Basic metabolic 1998 panelOr dered By: Jamila Acosta on 02-12-2025 Anion gap [Moles/Vol] 14 mmol/L High 3 - 13 mmol/L [facility] [employer] Calcium [Mass/Vol] 8.4 mg/dL Low 8.8 - 10. 0 mg/dL [facility] Chloride [Moles/Vol] 106 mmol/L 98 - 10 7 mmol/L [facility] [employer] CO2 [Moles/Vol] 21 mmol/L Low 23 - 31 mmol/L [facility] Creatinine [Mass/Vol] 1.73 mg/dL High 0.72 - 1.25 mg/dL [facility] GFR/1.73 sq M.predicted (S/P/Bld) [Vol rate/Area] 38.2 mL/min Low - PINF [facility] Comment on above: Calculation based on the Chronic Kidney Disease Epidemiology Collaboration (CKD-EPI) equation refit without adjustment for race Glucose [Mass/Vol] 82 mg/dL 82 - 115 mg/dL [facility] Interpretation and review of laboratory results Abnormal [facility] Potassium [Moles/Vol] 2.8 mmol/L Low 3.5 - 5.1 mmol/L [facility] Comment on above: Plasma potassium erika ues may be up to 0.5 mmol/L lower than serum values. Sodium [Moles/Vol] 141 mmol/L 136 - 145 mmol/L [facility] [employer] Urea nitrogen [Mass/Vol] 22 mg/dL 9 - 23 mg/d L [facility] CBC (HEMOGRAM)on 02-12-2025 Erythrocyte distribution width (RBC) [Ratio] 18.5 % High 11.5-15.0 [facility] Comment on above: Performed By: #### L AB103, WUI161, LAB17 #### Heel Seater: JORGE A MALDONADO ([phone]) [facility] ([facility]) [address] [place] [address] Hematocrit (Bld) [Volume fraction] 44.7 % Normal 40.0-52.0 [facility] Comment on above: Performed By: #### L AB103, [id number], LAB17 #### Heel Seater: JORGE A MALDONADO ([phone]) [facility] ([facility]) [address] [place] [address] Hemoglobin (Bld) [Mass/Vol] 15.1 g/dL Normal 13.0-18.0 [facility] Comment on above: Performed By: #### L AB103, [id number], LAB17 #### Heel Seater: JORGE A MALDONADO ([phone]) [facility]) [address] [place] [address] MCH (RBC) [Entitic mass] 29.3 pg Normal 26.0-34.0 [facility] Comment on above: Performed By: #### L AB103, [id number], LAB17 #### Heel Seater: JORGE A MALDONADO ([phone]) [facility]) [address] [place] [address] MCHC 33.8 % Normal 30.5-36.0 [facility] Comment on above: Performed By: #### L AB103, [id number], LAB17 #### Heel Seater: JORGE A MALDONADO ([phone]) [facility]) [address] [place] [address] MCV (RBC) [Entitic vol] 86.6 fL Normal 77.0-99.0 [facility] Comment on above: Performed By: #### L AB103, [id number], LAB17 #### Heel Seater: JORGE A MALDONADO ([phone]) [facility]) [address] [place] [address] Platelet mean volume (Bld) [Entitic vol] 10.6 fL Normal 9.0-12.7 [facility] Comment on above: Performed By: #### L AB103, [id number], LAB17 #### Heel Seater: JORGE A MALDONADO ([phone]) [facility] ([facility]) [address] [place] [address] Platelets (Bld) [#/Vol] 205 10*3/uL Normal 140-440 [facility] Comment on above: Performed By: #### L AB103, LAT306, LAB17 #### Heel Seater: JORGE A MALDONADO ([phone]) [facility] ([facility]) [address] [place] [address] RBC (Bld) [#/Vol] 5.16 10*6/uL Normal 4.40-5.90 [facility] Comment on above: Performed By: #### L AB103, [id number], LAB17 #### Heel Seater: JORGE A MALDONADO ([phone]) [facility] ([facility]) [address] [place] [address] WBC (Bld) [#/Vol] 3.7 10*3/uL Normal 3.6-10.7 [facility] Comment on above: Performed By: #### L AB103, [id number], LAB17 #### Heel Seater: JORGE A MALDONADO ([phone]) [facility]) [address] [place] [address] CBC panel Auto (Bld)on 02-12 Erythrocyte distribution width (RBC) [Ratio] 18.5 % High 11.5 - 15.0 % [facility] Hematocrit (Bld) [Volume fraction] 44.7 % 40.0 - 52.0 % [facility] Hemoglobin (Bld) [Mass/Vol] 15.1 g/dL 13.0 - 18.0 g/dL [facility] Interpretation and review of laboratory results Abnormal [facility] MCH (RBC) [Entitic mass] 29.3 pg 26. 0 - 34.[address] [facility] MCHC (RBC) [Mass/Vol] 33.8 % 30.5 - 36.0 % [facility] MCV (RBC) [Entitic vol] 86.6 fL 77.0 - 99.[address] [facility] Platelet mean volume (Bld) [Entitic vol] 10.6 fL 9.0 - 12.[address] [facility] Platelets (Bld) [#/Vol] 205 10*3/uL 140 - 440 10*3/uL [facility] RBC (Bld) [#/Vol] 5.16 10*6/uL 4.40 - 5.9 0 10*6/uL [facility] WBC (Bld) [#/Vol] 3.7 10*3/uL 3.6 - 10.7 10*3/uL [facility] Laboratory - Chemistry and C hemistry - challengeon 02-12-2025 Glucose [Mass/Vol] 155 mg/dL High 70 - 100 mg/dL [facility] Glucose [Mass/Vol] 135 mg/dL High 70 - 100 mg/dL [facility] Glucose [Mass/Vol] 126 mg/dL High 70 - 100 mg/dL [facility] Glucose [Mass/Vol] 92 mg/dL 70 - 100 mg/dL [facility] Glucose [Mass/Vol] 60 mg/dL Low 70 - 100 mg/dL [facility] Procalcitonin [Mass/Vol] 0.08 ng/mL High LISANDRO F - 0.07 ng/mL [facility] No Panel Informationon 02-12 Interpretation and review of laboratory results Abnormal [facility] Performed by: Jacques Lin [facility] [address] CLIA ID: [id number] [facility] Interpretation and review of laboratory results Abnormal [facility] Performed by: Jacques Lin [facility] [address] CLIA ID: [id number] [facility] Interpretation and review of laboratory results Abnormal [facility] Performed by: Jacques Lin [facility] [address] CLIA ID: [id number] [facility] Interpretation and review of laboratory results Normal [facility] Performed by: Jacques Lin [facility] [address] CLIA ID: [id number] [facility] Interpretation and review of laboratory results Abnormal [facility] Performed by: Jacques Lin [facility] [address] CLIA ID: [id number] [facility] PROCALCITONIN TESTon 025 PROCALCITONIN 0.08 ng/mL High <0.07 [facility] Comment on above: Result Comment: [facility] COMMENTS: PCT <0.50 = Low risk of severe sepsis and/or septic shock. PCT >2.00 = High risk of severe sepsis and/or septic shock. Performed By: #### L AB15, [id number] ####Heel Seater: DIGNA MORALES ([phone])[facility] ([facility])[address] [place] [address] Procalcitonin [Mass/Vol]on 0 02-12-2025 Interpretation and review of laboratory results Abnormal [facility] PCT <0.50 = Low risk of severe sepsis and/or septic shock. PCT >2.00 = High risk of severe sepsis and/or septic shock. [facility] [employer] Progress Noteon 02-12-2025 Progress Note Nutrition Assessment [...] Unable to assess Fluid Accumulation: Severe Extremities Portrait Consultant Strength: Not Performed Nutrition Assessment: 84 year old man with PMHx: DMII, CKD stage IIIb, CHF(EF rate ~12% 01/30/25), DVT, bladder cancer, HTN, HLD, PUD. Recent admit 01/28-02/01/25 to [facility] with volume overload and CHF Exacerbation. +scrotal and lower extremity edema for three weeks MANAGER DATA. Treated with IV Lasix and transitioned to 40 mG Torsemide prior to discharge. On day of discharge with weight of 186.6#, and he was discharged home in improved condition. He currently presents to [facility] with worsening swelling, redness, and pain in bilateral lower extremities- presumed cellulitis. Noted weight of 182.4# on evening of 02/09/25. Significant labs on admit: Gap(17), Creatinine(1.94), AST(39), bilirubin(1.8),BNP(> 07142). Negative venous duplex imaging. ID consulted and following with plans to transition form IV cefetpime to PO antibiotics. Pleasant and interactive, resting in bed at time of assessment with bed scale weight of 80.7 kg or 177.9# obtained. Noted patient ate ~75% breakfast tray (observed by this RDN). Cites appetite is ?okay?, +diarrhea and early satiety. Estimates eating two meals daily MANAGER DATA. While he has used ONS in the past- declined a this time due to loose stooling. Requested A brownie and milk, liberlized diet. Estimated Daily Nutrient Needs: Energy Requirements Based On: Kcal/kg Weight Used for Energy Requirements: [place] Weight for Energy Calculation (kg): 67 kg Total Energy Requirements (kcals/day): 7026-3438 (25-30 kcal/kg IBW) Weight Used for Protein Requirements: [place] Weight in Kg Used for Protein Requirements: [...] 186.6# 02/01/25) % Weight Change (Calculated): -4.7 [place] Body Weight (lbs) (Calculated): 148 lbs [place] Body Weight (Kg) (Calculated): 67 kg % [place] Body Weight (Calculated): 120.2 % BMI (kg/m2) (Calculated): 27.9 Weight Adjustment For: No Adjustment BMI Categories: Overweight (BMI 25.0-29.9) Nutrition Diagnosis: Altered nutrition-related lab values related to cardiac dysfunction as evidenced by localized or generalized fluid accumulation, lab values Nutrition Interventions: Nutrition Education/Counseling : Education not indicated Coordination of Nutrition Care: Continue to monitor while inpatient Plan of Care discussed with: patient and DONOR PROCESSOR Goals: Previous Goal Met: Progressing toward Goal(s) Goals: PO intake 50% or greater Nutrition Monitoring and Evaluation: Behavioral-Environme ntal Outcomes: None Identified Food/Nutrient Intake Outcomes: Food and Nutrient Intake Physical Signs/Symptoms Outcomes: Biochemical Data, Chewing or Swallowing, Diarrhea, Nutrition Focused Physical Findings, Skin, Weight, Meal Time Behavior, Hemodynamic Status, Fluid Status or Edema Discharge Planning: Continue current diet Pari Morales RDN, LDN, Contact: *[phone] [facility] [id number] 02-11-2025 [phone] Patient is currently active with [facility]. The patients current certification period will on 04/04/2025. The patient is currently receiving SN, PT services through the agency. Technical Illustrations Map Inker to continue to follow. [facility] Laboratory - Chemistry and C hemistry - challengeon 02-11-2025 Glucose [Mass/Vol] 111 mg/dL High 70 - 100 mg/dL [facility] Glucose [Mass/Vol] 100 mg/dL 70 - 100 mg/dL [facility] Glucose [Mass/Vol] 131 mg/dL High 70 - 100 mg/dL [facility] Glucose [Mass/Vol] 116 mg/dL High 70 - 100 mg/dL [facility] Glucose [Mass/Vol] 67 mg/dL Low 70 - 100 mg/dL [facility] No Panel Informationon 02-11 Interpretation and review of laboratory results Abnormal [facility] Performed by: Claudiacarlos Romeo [address] [place] [address], [facility] [address] CLIA ID: [id number] [facility] Interpretation and review of laboratory results Normal [facility] Performed by: Claudiacarlos Romeo [address] [place] [address], [facility] [address] CLIA ID: [id number] [facility] Interpretation and review of laboratory results Abnormal [facility] Performed by: Claudiacarlos Romeo [address] [place] [address], [facility] [address] CLIA ID: [id number] [facility] Interpretation and review of laboratory results Abnormal [facility] Performed by: Anay Romeo [address] [place], [place] [address], [facility] [address] CLIA ID: [id number] [facility] Interpretation and review of laboratory results Abnormal [facility] Performed by: Anay Romeo [address] [place] [address] CLIA ID: [id number] [facility] Nursing Noteon 02-11-2025 Nursing Note ROLO wrap applied to both feet. Normal [facility] US Lower extremity vein - bi lateralon [...] width (RBC) [Ratio] 18.6 % High 11.5-15.0 [facility] Comment on above: Performed By: #### L [id number] ####Heel Seater: DIGNA MORALES ([phone])[facility] ([facility])[address] [place] [address] Hematocrit (Bld) [Volume fraction] 45.8 % Normal 40.0-52.0 [facility] Comment on above: Performed By: #### L AB294 ####Heel Seater: DIGNA MORALES ([phone])[facility] ([facility])[address] [place] [address] Hemoglobin (Bld) [Mass/Vol] 14.8 g/dL Normal 13.0-18.0 [facility] Comment on above: Performed By: #### L AB294 ####Heel Seater: DIGNA MORALES ([phone])[facility] ([facility] [place] [address] MCH (RBC) [Entitic mass] 28.1 pg Normal 26.0-34.0 [facility] Comment on above: Performed By: #### L AB294 ####Heel Seater: DIGNA MORALES ([phone])[facility] ([facility])[address] [place] [address] MCHC 32.3 % Normal 30.5-36.0 [facility] Comment on above: Performed By: #### L AB294 ####Heel Seater: DIGNA MORALES ([id number])[facility] [place] ([facility])[address] MCV (RBC) [Entitic vol] 87.1 fL Normal 77.0-99.0 [facility] Comment on above: Performed By: #### L AB294 ####Heel Seater: DIGNA MORALES ([phone])[facility] [place] ([facility])[address] Platelet mean volume (Bld) [Entitic vol] 10.7 fL Normal 9.0-12.7 [facility] Comment on above: Performed By: #### L AB294 ####Heel Seater: DIGNA MORALES ([phone])[facility] [place] ([facility])[address] Platelets (Bld) [#/Vol] 198 10*3/uL Normal 140-440 [facility] Comment on above: Performed By: #### L AB294 ####Heel Seater: DIGNA MORALES ([phone])[facility] [place] ([facility])[address] RBC (Bld) [#/Vol] 5.26 10*6/uL Normal 4.40-5.90 [facility] Comment on above: Performed By: #### L AB294 ####Heel Seater: DIGNA MORALES ([phone])[facility] [place] ([facility])[address] [place] [address] [place] WBC (Bld) [#/Vol] 5.1 10*3/uL Normal 3.6-10.7 [facility] Comment on above: Performed By: #### L AB294 ####Heel Seater: DIGNA MORALES ([phone])[facility] [place] ([facility])[address] CBC panel Auto (Bld)on 02-10 Erythrocyte distribution width (RBC) [Ratio] 18.6 % High 11.5 - 15.0 % [facility] Hematocrit (Bld) [Volume fraction] 45.8 % 40.0 - 52.0 % [facility] Hemoglobin (Bld) [Mass/Vol] 14.8 g/dL 13.0 - 18.0 g/dL [facility] Interpretation and review of laboratory results Abnormal [facility] MCH (RBC) [Entitic mass] 28.1 pg 26. 0 - 34.[address] [facility] MCHC (RBC) [Mass/Vol] 32.3 % 30.5 - 36.0 % [facility] MCV (RBC) [Entitic vol] 87.1 fL 77.0 - 99.[address] [facility] Platelet mean volume (Bld) [Entitic vol] 10.7 fL 9.0 - 12.[address] [facility] Platelets (Bld) [#/Vol] 198 10*3/uL 140 - 440 10*3/uL [facility] RBC (Bld) [#/Vol] 5.26 10*6/uL 4.40 - 5.9 0 10*6/uL [facility] WBC (Bld) [#/Vol] 5.1 10*3/uL 3.6 - 10.7 10*3/uL [facility] COMPREHENSIVE METABOLIC PANE Greg 02-10-2025 Albumin [Mass/Vol] 3.4 g/dL Normal 3.4-4.8 [facility] Comment on above: Performed By: #### L AB103, [id number], LAB17 #### Heel Seater: JORGE A MALDONADO ([phone]) [facility] [address] [place] [address] ALP [Catalytic activity/Vol] 94 U/L Normal 40-150 [facility] Comment on above: Performed By: #### L AB103, PDA393, LAB17 #### Heel Seater: JORGE A MALDONADO ([phone]) [facility] [address] [place] [address] ALT [Catalytic activity/Vol] 10 U/L Normal <40 [facility] Comment on above: Performed By: #### L AB103, ADV700, LAB17 #### Heel Seater: JORGE A MALDONADO ([phone]) [facility] ([facility]) [address] [place] [address] Anion gap [Moles/Vol] 17 mmol/L High 3-13 [facility] Comment on above: Performed By: #### L AB103, [id number], LAB17 #### Heel Seater: JORGE A MALDONADO ([phone]) [facility] ([facility]) [address] [place] [address] AST [Catalytic activity/Vol] 39 U/L High <34 [facility] Comment on above: Result Comment: TC Potential interference from hemolysis Performed By: #### Russell AB103, SLF692, LAB17 #### Heel Seater: JORGE A MALDONADO ([phone]) [facility] ([facility]) [address] [place] [address] Bilirubin [Mass/Vol] 1.8 mg/dL High <1.2 [facility] Comment on above: Performed By: #### Russell AB103, HLY304, LAB17 #### Heel Seater: JORGE A MALDONADO ([phone]) [facility] ([facility]) [address] [place] [address] Calcium [Mass/Vol] 8.7 mg/dL Low 8.8-10.0 [facility] Comment on above: Performed By: #### Russell AB103, [id number], LAB17 #### Heel Seater: JORGE A MALDONADO ([phone]) [facility] ([facility]) [address] [place] [address] Chloride [Moles/Vol] 102 mmol/L Normal 98-107 [facility] Comment on above: Performed By: #### L AB103, [id number], LAB17 #### Heel Seater: JORGE A MALDONADO ([phone]) [facility]) [address] [place] [address] CO2 [Moles/Vol] 22 mmol/L Low 23-31 [facility] Comment on above: Performed By: #### L AB103, EPZ597, LAB17 #### Heel Seater: JORGE A MALDONADO ([phone]) [facility]) [address] [place] [address] Creatinine [Mass/Vol] 1.94 mg/dL High 0.72-1.25 [facility] Comment on above: Performed By: #### L AB103, YVP447, LAB17 #### Heel Seater: JORGE A MALDONADO ([phone]) [facility]) [address] [place] [address] [place] GLOMERULAR FILTRATION RATE ML/MIN/1.73 SQ M.PREDICTED 33.3 mL/min/1.73m*2 Low >60.0 [facility] Comment on above: Result Comment: Calc ulation based on the Chronic Kidney Disease Epidemiology Collaboration (CKD-EPI) equation refit without adjustment for race Performed By: #### L AB103, UEV994, LAB17 #### Heel Seater: JORGE A MALDONADO ([phone]) [facility]) [address] [place] [address] Glucose [Mass/Vol] 89 mg/dL Normal 82-115 [facility] Comment on above: Performed By: #### L AB103, [id number], LAB17 #### Heel Seater: JORGE A MALDONADO ([phone]) [address] Potassium [Moles/Vol] 3.9 mmol/L Normal 3.5-5.1 [facility] Comment on above: Result Comment: [facility] potassium values may be up to 0.5 mmol/L lower than serum values. Performed By: #### L AB103, [id number], LAB17 #### Heel Seater: JORGE A MALDONADO ([phone]) [facility]) [address] [place] [address] [place] Protein [Mass/Vol] 6.6 g/dL Normal 6.4-8.3 [facility] Comment on above: Performed By: #### L AB103, [id number], LAB17 #### Heel Seater: JORGE A MALDONADO ([phone]) [facility]) [address] [place] [address] Sodium [Moles/Vol] 141 mmol/L Normal 136-145 [facility] Comment on above: Performed By: #### L AB103, KDU532, LAB17 #### Heel Seater: JORGE A MALDONADO ([id number]) [facility] [address] [place] [address] Urea nitrogen [Mass/Vol] 23 mg/dL Normal 9-23 [facility] Comment on above: Performed By: #### L AB103, [id number], LAB17 #### Heel Seater: JORGE A MALDONADO ([phone]) [facility] [address] [place] [address] Comprehensive metabolic 1998 panelon 02-10-2025 Albumin [Mass/Vol] 3.4 g/dL 3.4 - 4.8 g/dL [facility] ALP [Catalytic activity/Vol] 94 U/L 40 - 150 U/L [facility] ALT [Catalytic activity/Vol] 10 U/L NINF - 40 U/L [facility] Anion gap [Moles/Vol] 17 mmol/L High 3 - 13 mmol/L [facility] AST [Catalytic activity/Vol] 39 U/L [facility]/L [facility] Comment on above: TC Potential interference from hemolysis Bilirubin [Mass/Vol] 1.8 mg/dL High NINF - 1.2 mg/dL [facility] Calcium [Mass/Vol] 8.7 mg/dL Low 8.8 - 10. 0 mg/dL [facility] Chloride [Moles/Vol] 102 mmol/L 98 - 10 7 mmol/L [facility] CO2 [Moles/Vol] 22 mmol/L Low 23 - 31 mmol/L [facility] Creatinine [Mass/Vol] 1.94 mg/dL High 0.72 - 1.25 mg/dL [facility] GFR/1.73 sq M.predicted (S/P/Bld) [Vol rate/Area] 33.3 mL/min Low - PINF [facility] Comment on above: Calculation based on the Chronic Kidney Disease Epidemiology Collaboration (CKD-EPI) equation refit without adjustment for race Glucose [Mass/Vol] 89 mg/dL 82 - 115 mg/dL [facility] Interpretation and review of laboratory results Abnormal [facility] Potassium [Moles/Vol] 3.9 mmol/L 3.5 - 5.1 mmol/L [facility] Comment on above: Plasma potassium erika ues may be up to 0.5 mmol/L lower than serum values. Protein [Mass/Vol] 6.6 g/dL 6.4 - 8.3 g/dL [facility] Sodium [Moles/Vol] 141 mmol/L 136 - 145 mmol/L [facility] Urea nitrogen [Mass/Vol] 23 mg/dL 9 - 23 mg/d L [facility] Consulton 02-10-[address] [facility] - Infectious Diseases Attending [...] ([facility]) ED (erectile d (more content not included)... Normal [facility] ED Provider Noteon ED Provider Note EMERGENCY [...] mg. Repor (more content not included)... Normal [facility] LACTIC ACID WITH REFLEXon Lactate [Moles/Vol] 2.0 mmol/L Normal 0.5-2.2 [facility] Comment on above: Performed By: #### L [id number] ####Heel Seater: DIGNA MORALES ([phone])[facility] ([facility])[address] [place] [address] Laboratory - Chemistry and C hemistry - challengeon 02-10-2025 Glucose [Mass/Vol] 98 mg/dL 70 - 100 mg/dL [facility] Glucose [Mass/Vol] 80 mg/dL 70 - 100 mg/dL [facility] Glucose [Mass/Vol] 83 mg/dL 70 - 100 mg/dL [facility] Lactate [Moles/Vol] 2 mmol/L 0.5 - 2. 2 mmol/L [facility] NT PRO BNPon 02-10-2025 NT PRO BNP >04535 High <450 [facility] Comment on above: Performed By: #### L AB103, [id number], LAB17 #### Heel Seater: JORGE A MALDONADO ([phone]) [facility] ([facility]) [address] [place] [address] Natriuretic peptide B [Mass/ Vol]on 02-10-2025 Interpretation and review of laboratory results Abnormal [facility] Natriuretic peptide B (Bld) [Mass/Vol] pg/mL High NINF - 450 pg/mL [facility] No Panel Informationon 02-10 Interpretation and review of laboratory results Normal [facility] Performed by: Anay Romeo, [address] [place] [address] CLIA ID: [id number] [facility] Interpretation and review of laboratory results Normal [facility] Performed by: Anay Romeo, [address] [place] [address] CLIA ID: [id number] [facility] Interpretation and review of laboratory results Normal [facility] Performed by: Anay Romeo, [address] [place] [address] CLIA ID: [id number] [facility] Interpretation and review of laboratory results Normal [facility] 36on 02-07-2025 36 TC to Pt No answer LVM Normal [facility] 36 Patient left message saying he had a question about meds [facility] 36 Per Marcela Rosado Pt can continue the Dupixent No answer LVM explaining this as VM states full name [facility] 36on 02-04-2025 36 Heart Failure Clinic Discharge Call [...] again. RP 02/15/25 1430 Pt verbalizes understanding. [facility] 36 Patient called and was returning your phone call [facility] 36 TC to Pt no answer LVM [place] [address] Discharged with heart failure. Needs 72 hour post discharge phone call. [facility] [id number] 02-01-2025 [id number] Confirmed with Valerie at PCP's office that patient is active with Dr. Durand for PCP and he will follow for home care orders. [facility] [id number] 02-01-2025 [id number] Home Health Care Services - [facility] [facility] Counts include 234 beds at the [facility] [id number] Patient/Family Choice [facility] [phone] Next Site of Care Admission Date: 01/28/2025 01:43 AM Patient Name: MEGAN NASCIMENTON: [id number] Location: [facility] 5W CARDIAC [facility] [id number] B Date of : 1940 Placement Information Referral Type:Home Health Care Services - New Referral ID:[id number] Provider Name:[facility] Address 1:[address] [place] [address] Stephen A2 Address 2: City:[place] Selection Factors:Patient/Fami ly Choice State:[place] Normal [facility] CALCIUM, IONIZEDon 5 CALCIUM IONIZED 4.40 mg/dL Normal 4.30-5.20 [facility] Comment on above: Performed By: #### L AB54 ####Heel Seater: JORGE A MALDONADO ([phone])[facility])[address] [place] [address] PH, IONIZED CALCIUM 7.33 Normal 7.31-7.46 [facility] Comment on above: Performed By: #### L AB54 ####Heel Seater: JORGE A MALDONADO ([phone])[facility])[address] [place] [address] CBC (HEMOGRAM)on 02-01-2025 Erythrocyte distribution width (RBC) [Ratio] 19.1 % High 11.5-15.0 [facility] Comment on above: Performed By: #### L [id number] ####Heel Seater: JORGE A MALDONADO ([phone])[address] Hematocrit (Bld) [Volume fraction] 44.6 % Normal 40.0-52.0 [facility] Comment on above: Performed By: #### L [id number] ####Heel Seater: JORGE A MALDONADO ([phone])[facility])[address] [place] [address] Hemoglobin (Bld) [Mass/Vol] 14.4 g/dL Normal 13.0-18.0 [facility] Comment on above: Performed By: #### L [id number] ####Heel Seater: JORGE A MALDONADO ([phone])[facility])[address] [place] [address] MCH (RBC) [Entitic mass] 28.2 pg Normal 26.0-34.0 [facility] Comment on above: Performed By: #### L AB294 ####Heel Seater: JORGE A MALDONADO ([phone])[facility])[address] [place] [address] MCHC 32.3 % Normal 30.5-36.0 [facility] Comment on above: Performed By: #### L AB294 ####Heel Seater: JORGE A MALDONADO ([phone])[facility])[address] [place] [address] MCV (RBC) [Entitic vol] 87.5 fL Normal 77.0-99.0 [facility] Comment on above: Performed By: #### L AB294 ####Heel Seater: JORGE A MALDONADO ([phone])[facility] ([facility])[address] [place] [address] Platelet mean volume (Bld) [Entitic vol] 10.3 fL Normal 9.0-12.7 [facility] Comment on above: Performed By: #### L AB294 ####Heel Seater: JORGE A MALDONADO ([phone])[facility] ([facility])[address] [place] [address] Platelets (Bld) [#/Vol] 194 10*3/uL Normal 140-440 [facility] Comment on above: Performed By: #### L [id number] ####Heel Seater: JORGE A MALDONADO ([phone])[facility] ([facility])[address] [place] [address] RBC (Bld) [#/Vol] 5.10 10*6/uL Normal 4.40-5.90 [facility] Comment on above: Performed By: #### L [id number] ####Heel Seater: JORGE A MALDONADO ([phone])[facility] ([facility])[address] [place] [address] WBC (Bld) [#/Vol] 4.2 10*3/uL Normal 3.6-10.7 [facility] Comment on above: Performed By: #### L [id number] ####Heel Seater: JORGE A MALDONADO ([phone])[facility] ([facility])[address] [place] [address] CBC panel Auto (Bld)on 02-01 Erythrocyte distribution width (RBC) [Ratio] 19.1 % High 11.5 - 15.0 % [facility] Hematocrit (Bld) [Volume fraction] 44.6 % 40.0 - 52.0 % [facility] Hemoglobin (Bld) [Mass/Vol] 14.4 g/dL 13.0 - 18.0 g/dL [facility] Interpretation and review of laboratory results Abnormal [facility] MCH (RBC) [Entitic mass] 28.2 pg 26. 0 - 34.[address] [facility] MCHC (RBC) [Mass/Vol] 32.3 % 30.5 - 36.0 % [facility] MCV (RBC) [Entitic vol] 87.5 fL 77.0 - 99.[address] [facility] Platelet mean volume (Bld) [Entitic vol] 10.3 fL 9.0 - 12.[address] [facility] Platelets (Bld) [#/Vol] 194 10*3/uL 140 - 440 10*3/uL [facility] RBC (Bld) [#/Vol] 5.1 10*6/uL 4.40 - 5.9 0 10*6/uL [facility] WBC (Bld) [#/Vol] 4.2 10*3/uL 3.6 - 10.7 10*3/uL [facility] COMPREHENSIVE METABOLIC PANE Greg 02-01-2025 Albumin [Mass/Vol] 3.7 g/dL Normal 3.4-4.8 [facility] Comment on above: Performed By: #### L AB103, [id number], LAB17 ####Heel Seater: JORGE A MALDONADO ([phone])[address] ALP [Catalytic activity/Vol] 106 U/L Normal 40-150 [facility] Comment on above: Performed By: #### L AB103, [id number], LAB17 ####Heel Seater: JORGE A MALDONADO ([phone])[facility])[address] [place] [address] ALT [Catalytic activity/Vol] 14 U/L Normal <40 [facility] Comment on above: Performed By: #### L AB103, GLU135, LAB17 ####Heel Seater: JORGE A MALDONADO ([phone])[facility])[address] [place] [address] Anion gap [Moles/Vol] 10 mmol/L Normal 3-13 [facility] Comment on above: Performed By: #### L AB103, [id number], LAB17 ####Heel Seater: JORGE A MALDONADO ([phone])[facility] ([facility])[address] [place] [address] [place] AST [Catalytic activity/Vol] 30 U/L Normal <34 [facility] Comment on above: Performed By: #### L AB103, [id number], LAB17 ####Heel Seater: JORGE A MALDONADO ([phone])[facility] [place] [address] Bilirubin [Mass/Vol] 1.7 mg/dL High <1.2 [facility] Comment on above: Performed By: #### L AB103, [id number], LAB17 ####Heel Seater: JORGE A MALDONADO ([phone])[facility] [place] [address] Calcium [Mass/Vol] 9.6 mg/dL Normal 8.8-10.0 [facility] Comment on above: Performed By: #### L AB103, [id number], LAB17 ####Heel Seater: JORGE A MALDONADO ([phone])[facility] ([facility])[address] [place] [address] [place] Chloride [Moles/Vol] 104 mmol/L Normal 98-107 [facility] Comment on above: Performed By: #### L AB103, BPT746, LAB17 ####Heel Seater: JORGE A MALDONADO ([phone])[facility] [place] [address] [place] CO2 [Moles/Vol] 25 mmol/L Normal 23-31 [facility] Comment on above: Performed By: #### L AB103, MYE048, LAB17 ####Heel Seater: JORGE A MALDONADO ([phone])[facility] [place] [address] [place] Creatinine [Mass/Vol] 1.90 mg/dL High 0.72-1.25 [facility] Comment on above: Performed By: #### L AB103, XOH038, LAB17 ####Heel Seater: JORGE A MALDONADO ([phone])[facility])[address] [place] [address] [place] GLOMERULAR FILTRATION RATE ML/MIN/1.73 SQ M.PREDICTED 34.1 mL/min/1.73m*2 Low >60.0 [facility] Comment on above: Result Comment: Calc ulation based on the Chronic Kidney Disease Epidemiology Collaboration (CKD-EPI) equation refit without adjustment for race Performed By: #### L AB103, PAI022, LAB17 ####Heel Seater: JORGE A MALDONADO ([phone])[facility])[address] [place] [address] [place] Glucose [Mass/Vol] 121 mg/dL High 82-115 [facility] Comment on above: Performed By: #### Russell AB103, [id number], LAB17 ####Heel Seater: JORGE A MALDONADO ([phone])[facility])[address] [place] [address] Potassium [Moles/Vol] 3.7 mmol/L Normal 3.5-5.1 [facility] Comment on above: Result Comment: [facility] potassium values may be up to 0.5 mmol/L lower than serum values. Performed By: #### L AB103, YAK620, LAB17 ####Heel Seater: JORGE A MALDONADO ([phone])[facility])[address] [place] [address] [place] Protein [Mass/Vol] 7.1 g/dL Normal 6.4-8.3 [facility] Comment on above: Performed By: #### L AB103, VZY676, LAB17 ####Heel Seater: JORGE A MALDONADO ([phone])[facility])[address] [place] [address] [place] Sodium [Moles/Vol] 139 mmol/L Normal 136-145 [facility] Comment on above: Performed By: #### L AB103, [id number], LAB17 ####Heel Seater: JORGE A MALDONADO ([phone])[facility])[address] [place] [address] [place] Urea nitrogen [Mass/Vol] 28 mg/dL High 9-23 [facility] Comment on above: Performed By: #### L AB103, IJR422, LAB17 ####Heel Seater: JORGE A MALDONADO ([phone])[facility] ([address] Calcium.ionized [Moles/Vol]O rdered By: Manuel Chow on 02-01-2025 Calcium.ionized (Bld) [Moles/Vol] 4.4 mg/dL 4.30 - 5.20 mg/dL [facility] Interpretation and review of laboratory results Normal [facility] PH, IONIZED CALCIUM 7.33 7.31 - 7.46 [facility] Comprehensive metabolic 1998 panelon 02-01-2025 Albumin [Mass/Vol] 3.7 g/dL 3.4 - 4.8 g/dL [facility] ALP [Catalytic activity/Vol] 106 U/L 40 - 150 U/L [facility] ALT [Catalytic activity/Vol] 14 U/L NINF - 40 U/L [facility] Anion gap [Moles/Vol] 10 mmol/L 3 - 13 mmol/L [facility] AST [Catalytic activity/Vol] 30 U/L NINF - 34 U/L [facility] Bilirubin [Mass/Vol] 1.7 mg/dL High [facility] mg/dL [facility] [facility] Calcium [Mass/Vol] 9.6 mg/dL 8.8 - 10. 0 mg/dL [facility] Chloride [Moles/Vol] 104 mmol/L 98 - 10 7 mmol/L [facility] CO2 [Moles/Vol] 25 mmol/L 23 - 31 mmol/L [facility] Creatinine [Mass/Vol] 1.9 mg/dL High 0.72 - 1.25 mg/dL [facility] GFR/1.73 sq M.predicted (S/P/Bld) [Vol rate/Area] 34.1 mL/min Low - PINF [facility] Comment on above: Calculation based on the Chronic Kidney Disease Epidemiology Collaboration (CKD-EPI) equation refit without adjustment for race Glucose [Mass/Vol] 121 mg/dL High 82 - 115 mg/dL [facility] Interpretation and review of laboratory results Abnormal [facility] Potassium [Moles/Vol] 3.7 mmol/L 3.5 - 5.1 mmol/L [facility] Comment on above: Plasma potassium erika ues may be up to 0.5 mmol/L lower than serum values. Protein [Mass/Vol] 7.1 g/dL 6.4 - 8.3 g/dL [facility] Sodium [Moles/Vol] 139 mmol/L 136 - 145 mmol/L [facility] Urea nitrogen [Mass/Vol] 28 mg/dL High 9 - 23 mg/d L [facility] Laboratory - Chemistry and C hemistry - challengeon 02-01-2025 Magnesium [Mass/Vol] 2.1 mg/dL 1.6 - 2 .6 mg/dL [facility] Glucose [Mass/Vol] 129 mg/dL High 70 - 100 mg/dL [facility] Glucose [Mass/Vol] 101 mg/dL High 70 - 100 mg/dL [facility] MAGNESIUMon 02-01-2025 Magnesium [Mass/Vol] 2.1 mg/dL Normal 1.6-2.6 [facility] Comment on above: Result Comment: MIO Klein COMMENTS: Higher values can be expected in females during menses. Performed By: #### L AB103, [id number], LAB17 ####Heel Seater: JORGE A MALDONADO ([phone])[facility] ([facility])[address] [place] [address] Magnesium [Mass/Vol]on 02-01 Higher values can be expected in females during menses. [facility] No Panel Informationon 02-01 Interpretation and review of laboratory results Normal [facility] Interpretation and review of laboratory results Abnormal [facility] Performed by: [address] [address] CLIA ID: [id number] [facility] Interpretation and review of laboratory results Abnormal [facility] Performed by: [address] [address] CLIA ID: [id number] [facility] Nursing Noteon 02-01-2025 Nursing Note AVS instructions given. Meds to bed delivered. IV's removed. threat monitoring analyst removed, cleaned and placed at corresponding location nurses station. Patient has no questions or concerns at this time. Returning home via family. Normal [facility] PHOSPHORUSon 02-01-2025 Phosphate [Mass/Vol] 2.3 mg/dL Normal 2.3-4.7 [facility] Comment on above: Performed By: #### L AB103, [id number], LAB17 ####Heel Seater: JORGE A MALDONADO ([phone])[facility] [place] [address] Phosphate [Moles/Vol]on 01-18 Phosphate [Mass/Vol] 2.3 mg/dL 2.3 - 4 .7 mg/dL [facility] 30on 01-31-2025 30 Problem: Knowledge Deficit [...] Goal: Promote nutritional intake Outcome: Progressing Normal [facility] 30 Problem: Knowledge Deficit Goal: Patient/family/careg iver [...] Goal: Promote nutritional intake Outcome: Progressing Normal [facility] [id number] 01-31-2025 [id number] Care Managment Initial Assessment Date: 01/31/2025 Patient Name: Megan Nascimento : 1940 Patient Information Source of Information: Patient Cognition/Language: WFL - Within Functional Limits Permission given to speak with patient member services representative/careg iver as indicated: Yes Confirmation of Payer with patient/family: Yes [facility] : No Confirmation of Primary [...] Alone Support Systems: Children, Family members, Friends/neighbors, tour manager/social work faculty member, Home care staff Activities of Daily Living [...] Walker DME Provider: His daughter is his care trainer Patient's Goal/Discharge Plan Patient expects to be [...] for needs. . Nelly Pisano RN Normal [facility] CALCIUM, IONIZEDon 5 CALCIUM IONIZED 4.60 mg/dL Normal 4.30-5.20 [facility] Comment on above: Performed By: #### L AB103, [id number], LAB17 #### Heel Seater: JORGE A MALDONADO ([phone]) [facility]) [address] [place] [address] PH, IONIZED CALCIUM 7.37 Normal 7.31-7.46 [facility] Comment on above: Performed By: #### L AB103, [id number], LAB17 #### Heel Seater: JORGE A MALDONADO ([phone]) [facility] ([facility]) [address] [place] [address] CALCIUM IONIZED 4.10 mg/dL Low 4.30-5.20 [facility] Comment on above: Performed By: #### L AB103, [id number], LAB17 #### Heel Seater: JORGE A MALDONADO ([phone]) [facility] ([facility]) [address] [place] [address] PH, IONIZED CALCIUM 7.43 Normal 7.31-7.46 [facility] Comment on above: Performed By: #### L AB103, [id number], LAB17 #### Heel Seater: JORGE A MALDONADO ([phone]) [facility]) [address] [place] [address] CBC (HEMOGRAM)on 01-31-2025 Erythrocyte distribution width (RBC) [Ratio] 19.4 % High 11.5-15.0 [facility] Comment on above: Performed By: #### L AB294 ####Heel Seater: JORGE A MALDONADO ([phone])[facility] ([facility])[address] [place] [address] Hematocrit (Bld) [Volume fraction] 45.5 % Normal 40.0-52.0 [facility] Comment on above: Performed By: #### L AB294 ####Heel Seater: JORGE A MALDONADO ([phone])[facility])[address] [place] [address] Hemoglobin (Bld) [Mass/Vol] 14.6 g/dL Normal 13.0-18.0 [facility] Comment on above: Performed By: #### L AB294 ####Heel Seater: JORGE A MALDONADO ([phone])[facility])[address] [place] [address] MCH (RBC) [Entitic mass] 28.5 pg Normal 26.0-34.0 [facility] Comment on above: Performed By: #### L AB294 ####Heel Seater: JORGE A MALDONADO ([phone])[facility])[address] [place] [address] MCHC 32.1 % Normal 30.5-36.0 [facility] Comment on above: Performed By: #### L AB294 ####Heel Seater: JORGE A MALDONADO ([phone])[facility])[address] [place] [address] MCV (RBC) [Entitic vol] 88.9 fL Normal 77.0-99.0 S [facility] Comment on above: Performed By: #### L AB294 ####Heel Seater: JORGE A MALDONADO ([phone])[facility])[address] [place] [address] Platelet mean volume (Bld) [Entitic vol] 9.8 fL Normal 9.0-12.7 [facility] Comment on above: Performed By: #### L AB294 ####Heel Seater: JORGE A MALDONADO ([phone])[facility])[address] [place] [address] Platelets (Bld) [#/Vol] 180 10*3/uL Normal 140-440 [facility] Comment on above: Performed By: #### L AB294 ####Heel Seater: JORGE A MALDONADO ([phone])[facility])[address] [place] [address] RBC (Bld) [#/Vol] 5.12 10*6/uL Normal 4.40-5.90 [facility] Comment on above: Performed By: #### L AB294 ####Heel Seater: JORGE A MALDONADO ([phone])[facility] [place] [address] WBC (Bld) [#/Vol] 4.4 10*3/uL Normal 3.6-10.7 [facility] Comment on above: Performed By: #### L AB294 ####Heel Seater: JORGE A MALDONADO ([phone])[facility] ([facility])[address] [place] [address] CBC panel Auto (Bld)on 01-31 Erythrocyte distribution width (RBC) [Ratio] 19.4 % High 11.5 - 15.0 % [facility] Hematocrit (Bld) [Volume fraction] 45.5 % 40.0 - 52.0 % [facility] Hemoglobin (Bld) [Mass/Vol] 14.6 g/dL 13.0 - 18.0 g/dL [facility] Interpretation and review of laboratory results Abnormal [facility] MCH (RBC) [Entitic mass] 28.5 pg 26. 0 - 34.[address] [facility] MCHC (RBC) [Mass/Vol] 32.1 % 30.5 - 36.0 % [facility] MCV (RBC) [Entitic vol] 88.9 fL 77.0 - 99.[address] [facility] Platelet mean volume (Bld) [Entitic vol] 9.8 fL 9.0 - 12.[address] [facility] Platelets (Bld) [#/Vol] 180 10*3/uL 140 - 440 10*3/uL [facility] RBC (Bld) [#/Vol] 5.12 10*6/uL 4.40 - 5.9 0 10*6/uL [facility] WBC (Bld) [#/Vol] 4.4 10*3/uL 3.6 - 10.7 10*3/uL [facility] COMPREHENSIVE METABOLIC PANE Greg 01-31-2025 Albumin [Mass/Vol] 3.5 g/dL Normal 3.4-4.8 [facility] Comment on above: Performed By: #### L AB103, [id number], LAB17 ####Heel Seater: JORGE A MALDONADO ([phone])[facility] [place] [address] [place] ALP [Catalytic activity/Vol] 106 U/L Normal 40-150 [facility] Comment on above: Performed By: #### L AB103, [id number], LAB17 ####Heel Seater: JORGE A MALDONADO ([phone])[facility] [place] [address] [place] ALT [Catalytic activity/Vol] 14 U/L Normal <40 [facility] Comment on above: Performed By: #### L AB103, [id number], LAB17 ####Heel Seater: JORGE A MALDONADO ([phone])[facility] ([facility])[address] [place] [address] Anion gap [Moles/Vol] 14 mmol/L High 3-13 [facility] Comment on above: Performed By: #### Russell AB103, [id number], LAB17 ####Heel Seater: JORGE A MALDONADO ([phone])[facility] ([facility])[address] [place] [address] [place] AST [Catalytic activity/Vol] 28 U/L Normal <34 [facility] Comment on above: Performed By: #### Russell AB103, [id number], LAB17 ####Heel Seater: JORGE A MALDONADO ([phone])[facility] ([facility])[address] [place] [address] [place] Bilirubin [Mass/Vol] 1.6 mg/dL High <1.2 [facility] Comment on above: Performed By: #### L AB103, [id number], LAB17 ####Heel Seater: JORGE A MALDONADO ([phone])[facility] ([facility])[address] [place] [address] [place] Calcium [Mass/Vol] 9.6 mg/dL Normal 8.8-10.0 [facility] Comment on above: Performed By: #### L AB103, [id number], LAB17 ####Heel Seater: JORGE A MALDONADO ([phone])[facility] ([facility])[address] [place] [address] [place] Chloride [Moles/Vol] 103 mmol/L Normal 98-107 [facility] Comment on above: Performed By: #### L AB103, [id number], LAB17 ####Heel Seater: JORGE A MALDONADO ([phone])[facility])[address] [place] [address] CO2 [Moles/Vol] 23 mmol/L Normal 23-31 [facility] Comment on above: Performed By: #### L AB103, [id number], LAB17 ####Heel Seater: JORGE A MALDONADO ([phone])[facility])[address] [place] [address] Creatinine [Mass/Vol] 1.88 mg/dL High 0.72-1.25 [facility] Comment on above: Performed By: #### L AB103, [id number], LAB17 ####Heel Seater: JORGE A MALDONADO ([phone])[facility])[address] [place] [address] GLOMERULAR FILTRATION RATE ML/MIN/1.73 SQ M.PREDICTED 34.6 mL/min/1.73m*2 Low >60.0 [facility] Comment on above: Result Comment: Calc ulation based on the Chronic Kidney Disease Epidemiology Collaboration (CKD-EPI) equation refit without adjustment for race Performed By: #### L AB103, [id number], LAB17 ####Heel Seater: JORGE A MALDONADO ([phone])[facility])[address] [place] [address] Glucose [Mass/Vol] 121 mg/dL High 82-115 [facility] Comment on above: Performed By: #### L AB103, [id number], LAB17 ####Heel Seater: JORGE A MALDONADO ([phone])[facility])[address] [place] [address] Potassium [Moles/Vol] 4.0 mmol/L Normal 3.5-5.1 [facility] Comment on above: Result Comment: [facility] potassium values may be up to 0.5 mmol/L lower than serum values. Performed By: #### L AB103, [id number], LAB17 ####Heel Seater: JORGE A MALDONADO ([phone])[facility] ([facility])[address] [place] [address] Protein [Mass/Vol] 6.6 g/dL Normal 6.4-8.3 [facility] Comment on above: Performed By: #### L AB103, [id number], LAB17 ####Heel Seater: JORGE A MALDONADO ([phone])[facility] ([facility])[address] [place] [address] Sodium [Moles/Vol] 140 mmol/L Normal 136-145 [facility] Comment on above: Performed By: #### L AB103, [id number], LAB17 ####Heel Seater: JORGE A MALDONADO ([phone])[facility])[address] [place] [address] Urea nitrogen [Mass/Vol] 31 mg/dL High 9-23 [facility] Comment on above: Performed By: #### L AB103, [id number], LAB17 ####Heel Seater: JORGE A MALDONADO ([phone])[facility] ([facility])[address] [place] [address] Albumin [Mass/Vol] 3.3 g/dL Low 3.4-4.8 [facility] Comment on above: Performed By: #### L AB103, [id number], LAB17 ####Heel Seater: JORGE A MALDONADO ([phone])[facility] ([facility])[address] [place] [address] ALP [Catalytic activity/Vol] 97 U/L Normal 40-150 [facility] Comment on above: Performed By: #### L AB103, [id number], LAB17 ####Heel Seater: JORGE A MALDONADO ([phone])[facility])[address] [place] [address] ALT [Catalytic activity/Vol] 11 U/L Normal <40 [facility] Comment on above: Performed By: #### L AB103, [id number], LAB17 ####Heel Seater: JORGE A MALDONADO ([phone])[facility])[address] [place] [address] Anion gap [Moles/Vol] 8 mmol/L Normal 3-13 [facility] Comment on above: Performed By: #### Russell AB103, [id number], LAB17 ####Heel Seater: JORGE A MALDONADO ([phone])[facility] ([facility])[address] [place] [address] AST [Catalytic activity/Vol] 30 U/L Normal <34 [facility] Comment on above: Performed By: #### Russell AB103, [id number], LAB17 ####Heel Seater: JORGE A MALDONADO ([phone])[facility] ([facility])[address] [place] [address] Bilirubin [Mass/Vol] 1.5 mg/dL High <1.2 [facility] Comment on above: Performed By: #### Russell ABElisa, [id number], LAB17 ####Heel Seater: JORGE A MALDONADO ([phone])[facility] ([facility])[address] [place] [address] Calcium [Mass/Vol] 9.0 mg/dL Normal 8.8-10.0 [facility] Comment on above: Performed By: #### Russell SMYTH, [id number], LAB17 ####Heel Seater: JORGE A MALDONADO ([phone])[facility] ([facility])[address] [place] [address] [place] Chloride [Moles/Vol] 105 mmol/L Normal 98-107 [facility] Comment on above: Performed By: #### Russell ABElisa, [id number], LAB17 ####Heel Seater: JORGE A MALDONADO ([phone])[facility] ([facility])[address] [place] [address] [place] CO2 [Moles/Vol] 27 mmol/L Normal 23-31 [facility] Comment on above: Performed By: #### Russell AB103, [id number], LAB17 ####Heel Seater: JORGE A MALDONADO ([phone])[facility] ([facility])[address] [place] [address] [place] Creatinine [Mass/Vol] 1.94 mg/dL High 0.72-1.25 [facility] Comment on above: Performed By: #### Russell AB103, [id number], LAB17 ####Heel Seater: JORGE A MALDONADO ([phone])[facility])[address] [place] [address] GLOMERULAR FILTRATION RATE ML/MIN/1.73 SQ M.PREDICTED 33.3 mL/min/1.73m*2 Low >60.0 [facility] Comment on above: Result Comment: Calc ulation based on the Chronic Kidney Disease Epidemiology Collaboration (CKD-EPI) equation refit without adjustment for race Performed By: #### Russell SMYTH, [id number], LAB17 ####Heel Seater: JORGE A MALDONADO ([phone])[facility])[address] [place] [address] Glucose [Mass/Vol] 130 mg/dL High 82-115 [facility] Comment on above: Performed By: #### Russell SMYTH, [id number], LAB17 ####Heel Seater: JORGE A MALDONADO ([phone])[place] [address] [place] Potassium [Moles/Vol] 3.6 mmol/L Normal 3.5-5.1 [facility] Comment on above: Result Comment: [facility] potassium values may be up to 0.5 mmol/L lower than serum values. Performed By: #### Rsusell AB103, [id number], LAB17 ####Heel Seater: JORGE A MALDONADO ([phone])[facility])[address] [place] [address] Protein [Mass/Vol] 6.5 g/dL Normal 6.4-8.3 [facility] Comment on above: Performed By: #### Russell AB103, ADC096, LAB17 ####Heel Seater: JORGE A MALDONADO ([phone])[address] Sodium [Moles/Vol] 140 mmol/L Normal 136-145 [facility] Comment on above: Performed By: #### Russell AB103, [id number], LAB17 ####Heel Seater: JORGE A MALDONADO ([phone])[facility] ([facility])[address] [place] [address] Urea nitrogen [Mass/Vol] 30 mg/dL High 9-[address] [facility] Comment on above: Performed By: #### L AB103, [id number], LAB17 ####Heel Seater: JORGE A MALDONADO ([phone])[facility] [place] [address] Calcium.ionized [Moles/Vol]o n 01-31-2025 Calcium.ionized (Bld) [Moles/Vol] 4.6 mg/dL 4.30 - 5.20 mg/dL [facility] Interpretation and review of laboratory results Normal [facility] PH, IONIZED CALCIUM 7.37 7.31 - 7.46 [facility] Calcium.ionized [Moles/Vol]O rdered By: Lev Milian on 01-31-2025 Calcium.ionized (Bld) [Moles/Vol] 4.1 mg/dL Low 4.30 - 5.20 mg/dL [facility] Interpretation and review of laboratory results Abnormal [facility] PH, IONIZED CALCIUM 7.43 7.31 - 7.46 [facility] Comprehensive metabolic 1998 panelon 01-31-2025 Albumin [Mass/Vol] 3.5 g/dL 3.4 - 4.8 g/dL [facility] ALP [Catalytic activity/Vol] 106 U/L 40 - 150 U/L [facility] ALT [Catalytic activity/Vol] 14 U/L NINF - 40 U/L [facility] Anion gap [Moles/Vol] 14 mmol/L High 3 - 13 mmol/L [facility] AST [Catalytic activity/Vol] 28 U/L NINF - 34 U/L [facility] Bilirubin [Mass/Vol] 1.6 mg/dL High NINF - 1.2 mg/dL [facility] Calcium [Mass/Vol] 9.6 mg/dL 8.8 - 10. 0 mg/dL [facility] Chloride [Moles/Vol] 103 mmol/L 98 - 10 7 mmol/L [facility] CO2 [Moles/Vol] 23 mmol/L 23 - 31 mmol/L [facility] Creatinine [Mass/Vol] 1.88 mg/dL High 0.72 - 1.25 mg/dL [facility] GFR/1.73 sq M.predicted (S/P/Bld) [Vol rate/Area] 34.6 mL/min Low - PINF [facility] Comment on above: Calculation based on the Chronic Kidney Disease Epidemiology Collaboration (CKD-EPI) equation refit without adjustment for race Glucose [Mass/Vol] 121 mg/dL High 82 - 115 mg/dL [facility] Interpretation and review of laboratory results Abnormal [facility] Potassium [Moles/Vol] 4 mmol/L 3.5 - 5.1 mmol/L [facility] Comment on above: Plasma potassium erika ues may be up to 0.5 mmol/L lower than serum values. Protein [Mass/Vol] 6.6 g/dL 6.4 - 8.3 g/dL [facility] Sodium [Moles/Vol] 140 mmol/L 136 - 145 mmol/L [facility] Urea nitrogen [Mass/Vol] 31 mg/dL High 9 - 23 mg/d L [facility] Albumin [Mass/Vol] 3.3 g/dL Low 3.4 - 4.8 g/dL [facility] ALP [Catalytic activity/Vol] 97 U/L 40 - 150 U/L [facility] ALT [Catalytic activity/Vol] 11 [facility] Anion gap [Moles/Vol] 8 mmol/L 3 - 13 mmol/L [facility] AST [Catalytic activity/Vol] 30 U/L NINF - 34 U/L [facility] Bilirubin [Mass/Vol] 1.5 mg/dL High NINF - 1.2 mg/dL [facility] Calcium [Mass/Vol] 9 mg/dL 8.8 - 10. 0 mg/dL [facility] Chloride [Moles/Vol] 105 mmol/L 98 - 10 7 mmol/L [facility] CO2 [Moles/Vol] 27 mmol/L 23 - 31 mmol/L [facility] Creatinine [Mass/Vol] 1.94 mg/dL High 0.72 - 1.25 mg/dL [facility] GFR/1.73 sq M.predicted (S/P/Bld) [Vol rate/Area] 33.3 mL/min Low - PINF [facility] Comment on above: Calculation based on the Chronic Kidney Disease Epidemiology Collaboration (CKD-EPI) equation refit without adjustment for race Glucose [Mass/Vol] 130 mg/dL High 82 - 115 mg/dL [facility] Potassium [Moles/Vol] 3.6 mmol/L 3.5 - 5.1 mmol/L [facility] Comment on above: Plasma potassium erika ues may be up to 0.5 mmol/L lower than serum values. Protein [Mass/Vol] 6.5 g/dL 6.4 - 8.3 g/dL [facility] Sodium [Moles/Vol] 140 mmol/L 136 - 145 mmol/L [facility] Urea nitrogen [Mass/Vol] 30 mg/dL High 9 - 23 mg/d L [facility] Laboratory - Chemistry and C hemistry - challengeon 01-31-2025 Glucose [Mass/Vol] 114 mg/dL High 70 - 100 mg/dL [facility] Magnesium [Mass/Vol] 2.2 mg/dL 1.6 - 2 .6 mg/dL [facility] Glucose [Mass/Vol] 121 mg/dL High 70 - 100 mg/dL [facility] Magnesium [Mass/Vol] 2.2 mg/dL 1.6 - 2 .6 mg/dL [facility] Glucose [Mass/Vol] 124 mg/dL High 70 - 100 mg/dL [facility] Glucose [Mass/Vol] 141 mg/dL High 70 - 100 mg/dL [facility] MAGNESIUMon 01-31-2025 Magnesium [Mass/Vol] 2.2 mg/dL Normal 1.6-2.6 [facility] Comment on above: Result Comment: MIO Klein COMMENTS: Higher values can be expected in females during menses. Performed By: #### L AB103, [id number], LAB17 ####Heel Seater: JORGE A MALDONADO ([phone])[facility] ([facility])[address] [place] [address] Magnesium [Mass/Vol] 2.2 mg/dL Normal 1.6-2.6 [facility] Comment on above: Result Comment: MIO Klein COMMENTS: Higher values can be expected in females during menses. Performed By: #### L AB103, [id number], LAB17 #### Heel Seater: JORGE A MALDONADO ([phone]) [facility] ([facility]) [address] [place], [place] [id number] [facility] Magnesium [Mass/Vol]on 01-31 Higher values can be expected in females during menses. [facility] Interpretation and review of laboratory results Normal [facility] Higher values can be expected in females during menses. [facility] No Panel Informationon 01-31 Interpretation and review of laboratory results Abnormal [facility] [employer] [facility] Performed by: [facility], [address] [place] [address] CLIA ID: [id number] [facility] Interpretation and review of laboratory results Normal [facility] [employer] [facility] Interpretation and review of laboratory results Abnormal [facility] [employer] Performed by: [facility], [address] [place] [address] CLIA ID: [id number] [facility] [employer] [facility] [employer] Interpretation and review of laboratory results Abnormal [facility] [employer] [facility] Interpretation and review of laboratory results Abnormal [facility] [employer] Performed by: [facility], [address] [place] [address] CLIA ID: [id number] [facility] [employer] [facility] [employer] Interpretation and review of laboratory results Abnormal [facility] [employer] Performed by: [facility], [address] [place] [address] CLIA ID: [id number] [facility] Nursing Noteon 01-31-2025 Nursing Note Wound Care [...] care given). Prevention Measures in place, including: Hinton sheet with pillows (in place), Pt declined Bilateral foam heel protectors, off loading heels on pillows, Sacral foam and, Zinc/Moisture Barrier ointment. Moisture absorbant pad (in place), Bed Alarm On. Skin Care precaution order set in place d/t Simon score 18 on 01/28/2025. Dietitian consult in place. PT consult NA Simon > 3. 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 Will continue to follow pt. Please Voicera for any questions or concerns. Saundra Vinson, RN, BSN Normal [facility] PHOSPHORUSon 01-31-2025 Phosphate [Mass/Vol] 2.3 mg/dL Normal 2.3-4.7 [facility] Comment on above: Performed By: #### L [id number], [id number], LAB17 ####Heel Seater: JORGE A MALDONADO ([phone])[facility])[address] [place] [address] Phosphate [Mass/Vol] 2.2 mg/dL Low 2.3-4.7 [facility] Comment on above: Performed By: #### L AB103, [id number], LAB17 ####Heel Seater: JORGE A MALDONADO ([phone])[facility] ([facility])[address] [place] [address] Phosphate [Moles/Vol]on 01-18 Phosphate [Mass/Vol] 2.3 mg/dL 2.3 - 4 .7 mg/dL [facility] Phosphate [Mass/Vol] 2.2 mg/dL Low 2.3 - 4 .7 mg/dL [facility] Heart TransthoracicOrdere d By: Jarret Weldon on 01-31-2025 Aortic Sinus Valsalva 3.8 cm [facility] [employer] Work Phone: Aortic Sinus Valsalva Index 1.93 cm/m2 [facility] [employer] Phone: Aortic valve Mean systole pressure gradient by US.doppler derived full Bernoulli 3 mmHg [facility] Work Phone: Aortic valve Orifice area by US 4.5 cm2 [facility] [employer] Phone: Aortic valve Peak systolic flow by US.doppler 0.8 m/s [facility] [employer] Phone: AR Max Velocity PISA 3.6 m/s [facility] Work Phone: AR PHT 483.6 ms [facility] Work Phone: Ascending Aorta 4.3 cm [facility] Work Phone: Ascending Aorta Index 2.18 cm/m2 [facility] Work Phone: AV Area by Peak Velocity 1.5 cm2 [facility] Work Phone: AV Area by Planimetry 1.7 cm2 [facility] Work Phone: AV Area by VTI 1.4 cm2 [facility] Work Phone: AV Peak Gradient 6 mmHg [facility] Work Phone: AV Peak Velocity 1.2 m/s [facility] Work Phone: [phone] AV Velocity Ratio 0.33 [facility] Work Phone: AV VTI 26.1 cm [facility] Work Phone: BRITTA/BSA 0.86 cm2/m2 [facility] Work Phone: BRITTA/BSA Peak Velocity 0.8 cm2/m2 [facility] Work Phone: BRITTA/BSA VTI 0.7 cm2/m2 [facility] Work Phone: E/E' Septal 18.6 [facility] Work Phone: Est. RA Pressure 15 mmHg [facility] Work Phone: Fractional Shortening 2D 6 % 28 - 44 % [facility] Work Phone: Interpretation and review of laboratory results Abnormal [facility] Work Phone: IVC Diameter 2.7 cm [facility] Work Phone: [phone] IVSd 1.1 cm Abnormal 0.6 - 1.0 cm [facility] Work Phone: LA Diameter 5.6 cm [facility] Work Phone: LA Size Index 2.84 cm/m2 [facility] Work Phone: LA Volume 2C 97 mL Abnormal 18 - 58 mL [facility] Work Phone: LA Volume 4C 110 mL Abnormal 18 - 58 mL [facility] Work Phone: LA Volume A/L 114 mL [facility] Work Phone: LA Volume BP 109 mL Abnormal 18 - 58 mL [facility] Work Phone: LA Volume Index 2C 49 mL/m2 Abnormal 16 - 34 mL/m2 [facility] Work Phone: LA Volume Index 4C 56 mL/m2 Abnormal 16 - 34 mL/m2 [facility] Work Phone: LA Volume Index A/L 58 mL/m2 16 - 34 mL/m2 [facility] Work Phone: LA Volume Index BP 55 ml/m2 Abnormal 16 - 34 ml/m2 [facility] Work Phone: [phone] Left ventricular Ejection fraction by US.2D+Calculated by biplane method of disks 12 % Abnormal 55 - 100 % [facility] Work Phone: LV E' Septal Velocity 5 cm/s [facility] Work Phone: LV EDV A2C 212 mL [facility] Work Phone: LV EDV A4C 181 mL [facility] Work Phone: LV EDV BP 197 mL Abnormal 67 - 155 mL [facility] Work Phone: LV EDV Index A2C 108 mL/m2 [facility] alth Work Phone: LV EDV Index A4C 92 mL/m2 [facility] Work Phone: LV EDV Index BP 100 mL/m2 [facility] Work Phone: LV Ejection Fraction A2C 16 % [facility] Work Phone: LV Ejection Fraction A4C 9 % [facility] Work Phone: LV ESV A2C 178 mL [facility] Work Phone: LV ESV A4C 165 mL [facility] Work Phone: LV ESV BP 173 mL Abnormal 22 - 58 mL [facility] Work Phone: LV ESV Index A2C 90 mL/m2 [facility] Work Phone: LV ESV Index A4C 84 mL/m2 [facility] Work Phone: LV ESV Index BP 88 mL/m2 [facility] Work Phone: LV Mass 2D 234.8 g Abnormal 88 - 224 g [facility] Work Phone: LV Mass 2D Index 119.2 g/m2 Abnormal 49 - 115 g/m2 [facility] Work Phone: LV RWT Ratio 0.41 [facility] Work Phone: LVIDd 5.4 cm 4.2 - 5.9 cm [facility] Work Phone: LVIDd Index 2.74 cm/m2 [facility] Work Phone: LVIDs 5.1 cm [facility] Work Phone: LVIDs Index 2.59 cm/m2 [facility] Work Phone: LVOT Cardiac Output 2.7 liter/minute [facility] Work Phone: LVOT Diameter 2.4 cm [facility] Work Phone: LVOT Mean Gradient 0 mmHg [facility] Work Phone: LVOT Peak Gradient 1 mmHg [facility] Work Phone: LVOT Peak Velocity 0.4 m/s [facility] Work Phone: LVOT Stroke Volume Index 19.5 mL/m2 [facility] Work Phone: LVOT SV 38.4 ml [facility] Work Phone: LVOT VTI 8.5 cm [facility] Work Phone: LVOT:AV VTI Index 0.33 [facility] ealth Work Phone: LVPWd 1.1 cm Abnormal 0.6 - 1.0 cm [facility] Work Phone: MV A Velocity 0.36 m/s [facility] Work Phone: MV E Velocity 0.93 m/s [facility] Work Phone: MV E Wave Deceleration Time 185.6 ms [facility] Work Phone: MV E/A 2.58 [facility] Work Phone: RA Area 4C 144.7 mL [facility] Work Phone: RV Basal Dimension 4.9 cm [facility] Work Phone: RV Free Wall Peak S' 11 cm/s [facility] Work Phone: RV Longitudinal Dimension 7.3 cm [facility] Work Phone: RV Mid Dimension 3.2 cm [facility] Work Phone: RVSP 50 mmHg [facility] Work Phone: TAPSE 2 cm 1.7 cm [facility] Work Phone: TR Max Velocity 2.94 m/s [facility] Work Phone: TR Peak Gradient 35 mmHg [facility] Work Phone: TR Peak Velocity PISA 2.5 m/s [facility] Work Phone: TR VTI 82.7 cm [facility] Work Phone: TV EROA 0.4 cm2 [facility] Work Phone: TV Nyquist Velocity 42 cm/s [facility] Work Phone: [facility] Work Phone: US Heart Transthoracicon Left Ventricle: Left ventricle size is [...] anterior, apical septal and apical inferior. CV CPACS 30on 01-30-2025 30 Problem: Hemodynamic Status Goal: Patient's vitals [...] brakes on, call light in reach. Normal [facility] CALCIUM, IONIZEDon 5 CALCIUM IONIZED 4.30 mg/dL Normal 4.30-5.20 [facility] Comment on above: Performed By: #### L AB103, [id number], LAB17 #### Heel Seater: JORGE A MALDONADO ([phone]) [facility]) [address] [place] [address] PH, IONIZED CALCIUM 7.39 Normal 7.31-7.46 [facility] Comment on above: Performed By: #### L AB103, [id number], LAB17 #### Heel Seater: JORGE A MALDONADO ([phone]) [facility]) [address] [place] [address] CALCIUM IONIZED 4.50 mg/dL Normal 4.30-5.20 [facility] Comment on above: Performed By: #### L AB54 ####Heel Seater: JORGE A MALDONADO ([phone])[facility])[address] [place] [address] PH, IONIZED CALCIUM 7.35 Normal 7.31-7.46 [facility] Comment on above: Performed By: #### L AB54 ####Heel Seater: JORGE A MALDONADO ([phone])[facility])[address] [place] [address] CBC (HEMOGRAM)on 01-30-2025 Erythrocyte distribution width (RBC) [Ratio] 19.5 % High 11.5-15.0 [facility] Comment on above: Performed By: #### L AB294 ####Heel Seater: JORGE A MALDONADO ([phone])[facility])[address] [place] [address] Hematocrit (Bld) [Volume fraction] 45.8 % Normal 40.0-52.0 [facility] Comment on above: Performed By: #### L AB294 ####Heel Seater: JORGE A MALDONADO ([phone])[address] Hemoglobin (Bld) [Mass/Vol] 14.9 g/dL Normal 13.0-18.0 [facility] Comment on above: Performed By: #### L [id number] ####Heel Seater: JORGE A MALDONADO ([phone])[facility] [place] [address] MCH (RBC) [Entitic mass] 28.9 pg Normal 26.0-34.0 [facility] Comment on above: Performed By: #### L AB294 ####Heel Seater: JORGE A MALDONADO ([phone])[facility] ([facility])[address] [place] [address] MCHC 32.5 % Normal 30.5-36.0 [facility] Comment on above: Performed By: #### L AB294 ####Heel Seater: JORGE A MALDONADO ([phone])[facility] ([facility])[address] [place] [address] MCV (RBC) [Entitic vol] 88.8 fL Normal 77.0-99.0 S [facility] Comment on above: Performed By: #### L AB294 ####Heel Seater: JORGE A MALDONADO ([phone])[facility] ([facility])[address] [place] [address] Platelet mean volume (Bld) [Entitic vol] 10.6 fL Normal 9.0-12.7 [facility] Comment on above: Performed By: #### L AB294 ####Heel Seater: JORGE A MALDONADO ([phone])[facility] ([facility])[address] [place] [address] Platelets (Bld) [#/Vol] 205 10*3/uL Normal 140-440 [facility] Comment on above: Performed By: #### L AB294 ####Heel Seater: JORGE A MALDONADO ([phone])[facility] ([facility])[address] [place] [address] RBC (Bld) [#/Vol] 5.16 10*6/uL Normal 4.40-5.90 [facility] Comment on above: Performed By: #### L AB294 ####Heel Seater: JORGE A MALDONADO ([phone])[facility] ([facility])[address] [place] [address] [place] WBC (Bld) [#/Vol] 5.0 10*3/uL Normal 3.6-10.7 [facility] Comment on above: Performed By: #### L AB294 ####Heel Seater: JORGE A MALDONADO ([phone])[facility] ([facility])[address] [place] [address] CBC panel Auto (Bld)on 01-30 Erythrocyte distribution width (RBC) [Ratio] 19.5 % High 11.5 - 15.0 % [facility] Hematocrit (Bld) [Volume fraction] 45.8 % 40.0 - 52.0 % [facility] Hemoglobin (Bld) [Mass/Vol] 14.9 g/dL 13.0 - 18.0 g/dL [facility] Interpretation and review of laboratory results Abnormal [facility] MCH (RBC) [Entitic mass] 28.9 pg 26. 0 - 34.[address] [facility] MCHC (RBC) [Mass/Vol] 32.5 % 30.5 - 36.0 % [facility] MCV (RBC) [Entitic vol] 88.8 fL 77.0 - 99.[address] [facility] Platelet mean volume (Bld) [Entitic vol] 10.6 fL 9.0 - 12.[address] [facility] Platelets (Bld) [#/Vol] 205 10*3/uL 140 - 440 10*3/uL [facility] RBC (Bld) [#/Vol] 5.16 10*6/uL 4.40 - 5.9 0 10*6/uL [facility] WBC (Bld) [#/Vol] 5 10*3/uL 3.6 - 10.7 10*3/uL [facility] COMPREHENSIVE METABOLIC PANE Greg 01-30-2025 Albumin [Mass/Vol] 3.5 g/dL Normal 3.4-4.8 [facility] Comment on above: Performed By: #### L AB103, [id number], LAB17 ####Heel Seater: JORGE A MALDONADO ([phone])[facility] ([facility])[address] [place] [address] ALP [Catalytic activity/Vol] 103 U/L Normal 40-150 [facility] Comment on above: Performed By: #### L AB103, [id number], LAB17 ####Heel Seater: JORGE A MALDONADO ([phone])[facility] ([facility])[address] [place] [address] ALT [Catalytic activity/Vol] 12 U/L Normal <40 [facility] Comment on above: Performed By: #### L AB103, [id number], LAB17 ####Heel Seater: JORGE A MALDONADO ([phone])[facility] ([facility])[address] [place] [address] Anion gap [Moles/Vol] 14 mmol/L High 3-13 [facility] Comment on above: Performed By: #### L AB103, [id number], LAB17 ####Heel Seater: JORGE A MALDONADO ([phone])[facility] ([facility])[address] [place] [address] AST [Catalytic activity/Vol] 27 U/L Normal <34 [facility] Comment on above: Performed By: #### L AB103, [id number], LAB17 ####Heel Seater: JORGE A MALDONADO ([phone])[facility] ([facility])[address] [place] [address] Bilirubin [Mass/Vol] 1.5 mg/dL High <1.2 [facility] Comment on above: Performed By: #### L AB103, [id number], LAB17 ####Heel Seater: JORGE A MALDONADO ([phone])[facility] ([facility])[address] [place] [address] Calcium [Mass/Vol] 9.1 mg/dL Normal 8.8-10.0 [facility] Comment on above: Performed By: #### L AB103, [id number], LAB17 ####Heel Seater: JORGE A MALDONADO ([phone])[facility])[address] [place] [address] Chloride [Moles/Vol] 106 mmol/L Normal 98-107 [facility] Comment on above: Performed By: #### L AB103, [id number], LAB17 ####Heel Seater: JORGE A MALDONADO ([phone])[facility] ([facility])[address] [place] [address] CO2 [Moles/Vol] 21 mmol/L Low 23-31 [facility] Comment on above: Performed By: #### L AB103, [id number], LAB17 ####Heel Seater: JORGE A MALDONADO ([phone])[facility])[address] [place] [address] Creatinine [Mass/Vol] 1.95 mg/dL High 0.72-1.25 [facility] Comment on above: Performed By: #### L AB103, [id number], LAB17 ####Heel Seater: JORGE A MALDONADO ([phone])[facility])[address] [place] [address] GLOMERULAR FILTRATION RATE ML/MIN/1.73 SQ M.PREDICTED 33.1 mL/min/1.73m*2 Low >60.0 [facility] Comment on above: Result Comment: Calc ulation based on the Chronic Kidney Disease Epidemiology Collaboration (CKD-EPI) equation refit without adjustment for race Performed By: #### L AB103, [id number], LAB17 ####Heel Seater: JORGE A MALDONADO ([phone])[facility])[address] [place] [address] Glucose [Mass/Vol] 144 mg/dL High 82-115 [facility] Comment on above: Performed By: #### L AB103, [id number], LAB17 ####Heel Seater: JORGE A MALDONADO ([phone])[facility])[address] [place] [address] Potassium [Moles/Vol] 3.6 mmol/L Normal 3.5-5.1 [facility] Comment on above: Result Comment: [facility] potassium values may be up to 0.5 mmol/L lower than serum values. Performed By: #### L AB103, [id number], LAB17 ####Heel Seater: JORGE A MALDONADO ([phone])[facility])[address] [place] [address] Protein [Mass/Vol] 6.7 g/dL Normal 6.4-8.3 [facility] Comment on above: Performed By: #### L ABElisa, [id number], LAB17 ####Heel Seater: JORGE A MALDONADO ([phone])[facility])[address] [place] [address] Sodium [Moles/Vol] 141 mmol/L Normal 136-145 [facility] Comment on above: Performed By: #### Russell ABElisa, [id number], LAB17 ####Heel Seater: JORGE A MALDONADO ([phone])[facility] ([facility])[address] [place] [address] Urea nitrogen [Mass/Vol] 32 mg/dL High 9-23 [facility] Comment on above: Performed By: #### Russell ABElisa, [id number], LAB17 ####Heel Seater: JORGE A MALDONADO ([phone])[facility])[address] [place] [address] Albumin [Mass/Vol] 3.6 g/dL Normal 3.4-4.8 [facility] Comment on above: Performed By: #### Russell SMYTH, [id number], LAB17 ####Heel Seater: JORGE A MALDONADO ([phone])[facility])[address] [place] [address] ALP [Catalytic activity/Vol] 105 U/L Normal 40-150 [facility] Comment on above: Performed By: #### L AB103, [id number], LAB17 ####Heel Seater: JORGE A MALDONADO ([phone])[facility])[address] [place] [address] ALT [Catalytic activity/Vol] 13 U/L Normal <40 [facility] Comment on above: Performed By: #### L AB103, [id number], LAB17 ####Heel Seater: JORGE A MALDONADO ([phone])[facility])[address] [place] [address] Anion gap [Moles/Vol] 14 mmol/L High 3-13 [facility] Comment on above: Performed By: #### L AB103, [id number], LAB17 ####Heel Seater: JORGE A MALDONADO ([phone])[facility] ([facility])[address] [place] [address] AST [Catalytic activity/Vol] 26 U/L Normal <34 [facility] Comment on above: Performed By: #### L AB103, [id number], LAB17 ####Heel Seater: JORGE A MALDONADO ([phone])[facility] ([facility])[address] [place] [address] Bilirubin [Mass/Vol] 1.6 mg/dL High <1.2 [facility] Comment on above: Performed By: #### L AB103, [id number], LAB17 ####Heel Seater: JORGE A MALDONADO ([phone])[facility] ([facility])[address] [place] [address] Calcium [Mass/Vol] 9.4 mg/dL Normal 8.8-10.0 [facility] Comment on above: Performed By: #### L AB103, [id number], LAB17 ####Heel Seater: JORGE A MALDONADO ([id number])[facility] ([facility])[address] [place] [address] [place] Chloride [Moles/Vol] 106 mmol/L Normal 98-107 [facility] Comment on above: Performed By: #### L AB103, [id number], LAB17 ####Heel Seater: JORGE A MALDONADO ([phone])[facility] ([facility])[address] [place] [address] [place] CO2 [Moles/Vol] 21 mmol/L Low 23-31 [facility] Comment on above: Performed By: #### L AB103, [id number], LAB17 ####Heel Seater: JORGE A MALDONADO ([phone])[facility])[address] [place] [address] Creatinine [Mass/Vol] 1.78 mg/dL High 0.72-1.25 [facility] Comment on above: Performed By: #### L AB103, [id number], LAB17 ####Heel Seater: JORGE A MALDONADO ([phone])[facility])[address] [place] [address] GLOMERULAR FILTRATION RATE ML/MIN/1.73 SQ M.PREDICTED 36.9 mL/min/1.73m*2 Low >60.0 [facility] Comment on above: Result Comment: Calc ulation based on the Chronic Kidney Disease Epidemiology Collaboration (CKD-EPI) equation refit without adjustment for race Performed By: #### L AB103, [id number], LAB17 ####Heel Seater: JORGE A MALDONADO ([phone])[facility])[address] [place] [address] Glucose [Mass/Vol] 128 mg/dL High 82-115 [facility] Comment on above: Performed By: #### L AB103, [id number], LAB17 ####Heel Seater: JORGE A MALDONADO ([phone])[facility])[address] [place] [address] Potassium [Moles/Vol] 3.6 mmol/L Normal 3.5-5.1 [facility] Comment on above: Result Comment: [facility] potassium values may be up to 0.5 mmol/L lower than serum values. Performed By: #### L AB103, [id number], LAB17 ####Heel Seater: JORGE A MALDONADO ([phone])[facility])[address] [place] [address] [place] Protein [Mass/Vol] 6.9 g/dL Normal 6.4-8.3 [facility] Comment on above: Performed By: #### L AB103, [id number], LAB17 ####Heel Seater: JORGE A MALDONADO ([phone])[facility])[address] [place] [address] [place] Sodium [Moles/Vol] 141 mmol/L Normal 136-145 [facility] Comment on above: Performed By: #### L AB103, [id number], LAB17 ####Heel Seater: JORGE A MALDONADO ([phone])[facility])[address] [place] [address] [place] Urea nitrogen [Mass/Vol] 32 mg/dL High 9-[address] [facility] Comment on above: Performed By: #### L AB103, [id number], LAB17 ####Heel Seater: JORGE A MALDONADO ([phone])[facility] ([address] Calcium.ionized [Moles/Vol]o n 01-30-2025 Calcium.ionized (Bld) [Moles/Vol] 4.3 mg/dL 4.30 - 5.20 mg/dL [facility] Interpretation and review of laboratory results Normal [facility] PH, IONIZED CALCIUM 7.39 7.31 - 7.46 [facility] Calcium.ionized (Bld) [Moles/Vol] 4.5 mg/dL 4.30 - 5.20 mg/dL [facility] Interpretation and review of laboratory results Normal [facility] PH, IONIZED CALCIUM 7.35 7.31 - 7.46 [facility] Comprehensive metabolic 1998 panelon 01-30-2025 Albumin [Mass/Vol] 3.5 g/dL 3.4 - 4.8 g/dL [facility] ALP [Catalytic activity/Vol] 103 U/L 40 - 150 U/L [facility] ALT [Catalytic activity/Vol] [facility] Anion gap [Moles/Vol] 14 mmol/L High 3 - 13 mmol/L [facility] AST [Catalytic activity/Vol] 27 U[facility]L [facility] Bilirubin [Mass/Vol] 1.5 mg/dL High NINF - 1.2 mg/dL [facility] Calcium [Mass/Vol] 9.1 mg/dL 8.8 - 10. 0 mg/dL [facility] Chloride [Moles/Vol] 106 mmol/L 98 - 10 7 mmol/L [facility] CO2 [Moles/Vol] 21 mmol/L Low 23 - 31 mmol/L [facility] Creatinine [Mass/Vol] 1.95 mg/dL High 0.72 - 1.25 mg/dL [facility] GFR/1.73 sq M.predicted (S/P/Bld) [Vol rate/Area] 33.1 mL/min Low - PINF [facility] Comment on above: Calculation based on the Chronic Kidney Disease Epidemiology Collaboration (CKD-EPI) equation refit without adjustment for race Glucose [Mass/Vol] 144 mg/dL High 82 - 115 mg/dL [facility] Interpretation and review of laboratory results Abnormal [facility] Potassium [Moles/Vol] 3.6 mmol/L 3.5 - 5.1 mmol/L [facility] Comment on above: Plasma potassium erika ues may be up to 0.5 mmol/L lower than serum values. Protein [Mass/Vol] 6.7 g/dL 6.4 - 8.3 g/dL [facility] Sodium [Moles/Vol] 141 mmol/L 136 - 145 mmol/L [facility] Urea nitrogen [Mass/Vol] 32 mg/dL High 9 - 23 mg/d L [facility] Albumin [Mass/Vol] 3.6 g/dL 3.4 - 4.8 g/dL [facility] ALP [Catalytic activity/Vol] 105 U/L 40 - 150 U/L [facility] ALT [Catalytic activity/Vol] 13 U/L NINF - 40 U/L [facility] Anion gap [Moles/Vol] 14 mmol/L High 3 - 13 mmol/L [facility] AST [Catalytic activity/Vol] 26 U/L NINF - 34 U/L [facility] Bilirubin [Mass/Vol] 1.6 mg/dL High NINF - 1.2 mg/dL [facility] Calcium [Mass/Vol] 9.4 mg/dL 8.8 - 10. 0 mg/dL [facility] Chloride [Moles/Vol] 106 mmol/L 98 - 10 7 mmol/L [facility] CO2 [Moles/Vol] 21 mmol/L Low 23 - 31 mmol/L [facility] Creatinine [Mass/Vol] 1.78 mg/dL High 0.72 - 1.25 mg/dL [facility] GFR/1.73 sq M.predicted (S/P/Bld) [Vol rate/Area] 36.9 mL/min Low - PINF [facility] Comment on above: Calculation based on the Chronic Kidney Disease Epidemiology Collaboration (CKD-EPI) equation refit without adjustment for race Glucose [Mass/Vol] 128 mg/dL High 82 - 115 mg/dL [facility] Interpretation and review of laboratory results Abnormal [facility] Potassium [Moles/Vol] 3.6 mmol/L 3.5 - 5.1 mmol/L [facility] Comment on above: Plasma potassium erika ues may be up to 0.5 mmol/L lower than serum values. Protein [Mass/Vol] 6.9 g/dL 6.4 - 8.3 g/dL [facility] Sodium [Moles/Vol] 141 mmol/L 136 - 145 mmol/L [facility] Urea nitrogen [Mass/Vol] 32 mg/dL High 9 - 23 mg/d L [facility] Laboratory - Chemistry and C hemistry - challengeon 01-30-2025 Glucose [Mass/Vol] 145 mg/dL High 70 - 100 mg/dL [facility] Glucose [Mass/Vol] 156 mg/dL High 70 - 100 mg/dL [facility] Magnesium [Mass/Vol] 2 mg/dL 1.6 - 2 .6 mg/dL [facility] Magnesium [Mass/Vol] 2.1 mg/dL 1.6 - 2 .6 mg/dL [facility] Glucose [Mass/Vol] 119 mg/dL High 70 - 100 mg/dL [facility] Glucose [Mass/Vol] 92 mg/dL 70 - 100 mg/dL [facility] MAGNESIUMon 01-30-2025 Magnesium [Mass/Vol] 2.0 mg/dL Normal 1.6-2.6 [facility] Comment on above: Result Comment: MIO Klein COMMENTS: Higher values can be expected in females during menses. Performed By: #### L AB103, [id number], LAB17 ####Heel Seater: JORGE A MALDONADO ([phone])[address] Magnesium [Mass/Vol] 2.1 mg/dL Normal 1.6-2.6 [facility] Comment on above: Result Comment: MIO Klein COMMENTS: Higher values can be expected in females during menses. Performed By: #### L AB103, [id number], LAB17 ####Heel Seater: JORGE A MALDONADO ([phone])[facility])[address] [place] [address] Magnesium [Mass/Vol]on 01-30 Higher values can be expected in females during menses. [facility] Higher values can be expected in females during menses. [facility] No Panel Informationon 01-30 Interpretation and review of laboratory results Abnormal [facility] Performed by: [facility], [address] [place] [id number] CLIA ID: [id number] [facility] Interpretation and review of laboratory results Abnormal [facility] Performed by: [facility], [address] [place] [address] [id number] CLIA ID: [id number] [facility] Interpretation and review of laboratory results Normal [facility] Interpretation and review of laboratory results Normal [facility] Interpretation and review of laboratory results Abnormal [facility] Performed by: [facility], [address] [place] [id number] CLIA ID: [id number] [facility] Interpretation and review of laboratory results Normal [facility] Performed by: [facility], [address] [place] [id number] CLIA ID: [id number] [facility] PHOSPHORUSon 01-30-2025 Phosphate [Mass/Vol] 2.5 mg/dL Normal 2.3-4.7 [facility] Comment on above: Performed By: #### L AB103, [id number], LAB17 ####Heel Seater: JORGE A MALDONADO ([phone])[facility] [place] [address] [place] Phosphate [Mass/Vol] 2.5 mg/dL Normal 2.3-4.7 [facility] Comment on above: Performed By: #### L AB103, [id number], LAB17 ####Heel Seater: JORGE A MALDONADO ([phone])[facility] [place] [address] [place] Phosphate [Moles/Vol]on 01-18 Phosphate [Mass/Vol] 2.5 mg/dL 2.3 - 4 .7 mg/dL [facility] Phosphate [Mass/Vol] 2.5 mg/dL 2.3 - 4 .7 mg/dL [facility] Progress Noteon 01-30-2025 Progress Note Nutrition [...] On: Kcal/kg Weight Used for Energy Requirements: [place] Weight for Energy Calculation (kg): 67 kg Total Energy Requirements (kcals/day): 25-28 kcal/kg = 7594-9776 kcal Weight Used for Protein Requirements: [place] Weight in Kg Used for Protein Requirements: [...] kg (193 lb 9.6 oz) (standing 01/28) [place] Body Weight (lbs) (Calculated): 148 lbs [place] Body Weight (Kg) (Calculated): 67 kg % [place] Body Weight (Calculated): 127.8 % BMI (kg/m2) [...] soon to determine Aleksandra Pak RD Contact: Quid or [phone] [facility] 30on 01-29-2025 Problem: Knowledge Deficit Goal: Patient/family/careg iver demonstrates [...] Goal: Free from fall injury Outcome: Progressing [facility] 30 Problem: Knowledge Deficit Goal: Patient/family/careg [...] Free from fall injury Outcome: Progressing Normal [facility] BASIC METABOLIC PANELon 07- Anion gap [Moles/Vol] 10 mmol/L Normal 3-13 [facility] Comment on above: Performed By: #### L AB103, LAB15, [id number] ####Heel Seater: JORGE A MALDONADO ([phone])[facility] [place] [address] Calcium [Mass/Vol] 8.6 mg/dL Low 8.8-10.0 [facility] Comment on above: Performed By: #### L AB103, LAB15, [id number] ####Heel Seater: JORGE A MALDONADO ([phone])[facility] [place] [address] Chloride [Moles/Vol] 109 mmol/L High 98-107 [facility] Comment on above: Performed By: #### L AB103, LAB15, [id number] ####Heel Seater: JORGE A MALDONADO ([phone])[facility] [place] [address] CO2 [Moles/Vol] 22 mmol/L Low 23-31 [facility] Comment on above: Performed By: #### L AB103, LAB15, [id number] ####Heel Seater: JORGE A MALDONADO ([phone])[facility] [place] [address] Creatinine [Mass/Vol] 1.84 mg/dL High 0.72-1.25 [facility] Comment on above: Performed By: #### L AB103, LAB15, [id number] ####Heel Seater: JORGE A MALDONADO ([phone])[facility] [place] [address] [place] GLOMERULAR FILTRATION RATE ML/MIN/1.73 SQ M.PREDICTED 35.5 mL/min/1.73m*2 Low >60.0 [facility] Comment on above: Result Comment: Calc ulation based on the Chronic Kidney Disease Epidemiology Collaboration (CKD-EPI) equation refit without adjustment for race Performed By: #### L AB103, LAB15, [id number] ####Heel Seater: JORGE A MALDONADO ([phone])[facility] ([facility])[address] [place] [address] Glucose [Mass/Vol] 74 mg/dL Low 82-115 [facility] Comment on above: Performed By: #### L AB103, LAB15, [id number] ####Heel Seater: JORGE A MALDONADO ([phone])[facility])[address] [place] [address] Potassium [Moles/Vol] 2.8 mmol/L Low 3.5-5.1 [facility] Comment on above: Result Comment: [facility] potassium values may be up to 0.5 mmol/L lower than serum values. Performed By: #### Russell AB103, LAB15, [id number] ####Heel Seater: JORGE A MALDONADO ([phone])[facility] ([facility])[address] [place] [address] Sodium [Moles/Vol] 141 mmol/L Normal 136-145 [facility] Comment on above: Performed By: #### L AB103, LAB15, [id number] ####Heel Seater: JORGE A MALDONADO ([phone])[facility])[address] [place] [address] Urea nitrogen [Mass/Vol] 36 mg/dL High 9-23 [facility] Comment on above: Performed By: #### L AB103, LAB15, [id number] ####Heel Seater: JORGE A MALDONADO ([phone])[facility])[address] [place] [address] Basic metabolic 1998 panelOr dered By: Sol Adams on 01-29-2025 Anion gap [Moles/Vol] 10 mmol/L 3 - 13 mmol/L [facility] Calcium [Mass/Vol] 8.6 mg/dL Low 8.8 - 10. 0 mg/dL [facility] Chloride [Moles/Vol] 109 mmol/L High 98 - 10 7 mmol/L [facility] CO2 [Moles/Vol] 22 mmol/L Low 23 - 31 mmol/L [facility] Creatinine [Mass/Vol] 1.84 mg/dL High 0.72 - 1.25 mg/dL [facility] GFR/1.73 sq M.predicted (S/P/Bld) [Vol rate/Area] 35.5 mL/min Low - PINF [facility] Comment on above: Calculation based on the Chronic Kidney Disease Epidemiology Collaboration (CKD-EPI) equation refit without adjustment for race Glucose [Mass/Vol] 74 mg/dL Low 82 - 115 mg/dL [facility] Interpretation and review of laboratory results Abnormal [facility] Potassium [Moles/Vol] 2.8 mmol/L Low 3.5 - 5.1 mmol/L [facility] Comment on above: Plasma potassium erika ues may be up to 0.5 mmol/L lower than serum values. Sodium [Moles/Vol] 141 mmol/L 136 - 145 mmol/L [facility] [employer] Urea nitrogen [Mass/Vol] 36 mg/dL High 9 - 23 mg/d L [facility] CALCIUM, IONIZEDon 5 CALCIUM IONIZED 4.30 mg/dL Normal 4.30-5.20 [facility] Comment on above: Performed By: #### L AB54 ####Heel Seater: JORGE A MALDONADO ([phone])[address] PH, IONIZED CALCIUM 7.38 Normal 7.31-7.46 [facility] Comment on above: Performed By: #### L AB54 ####Heel Seater: JORGE A MALDONADO ([phone])[facility])[address] [place] [address] CALCIUM IONIZED 4.20 mg/dL Low 4.30-5.20 [facility] Comment on above: Performed By: #### L AB54 ####Heel Seater: JORGE A MALDONADO ([phone])[facility])[address] [place] [address] PH, IONIZED CALCIUM 7.38 Normal 7.31-7.46 [facility] Comment on above: Performed By: #### L AB54 ####Heel Seater: JORGE A MALDONADO ([phone])[facility])[address] [place] [address] CBC (HEMOGRAM)on 01-29-2025 Erythrocyte distribution width (RBC) [Ratio] 19.6 % High 11.5-15.0 [facility] Comment on above: Performed By: #### L [id number] ####Heel Seater: JORGE A MALDONADO ([phone])[facility])[address] [place] [address] Hematocrit (Bld) [Volume fraction] 46.3 % Normal 40.0-52.0 [facility] Comment on above: Performed By: #### L [id number] ####Heel Seater: JORGE A MALDONADO ([phone])[address] Hemoglobin (Bld) [Mass/Vol] 15.1 g/dL Normal 13.0-18.0 [facility] Comment on above: Performed By: #### L [id number] ####Heel Seater: JORGE A MALDONADO ([phone])[facility])[address] [place] [address] MCH (RBC) [Entitic mass] 28.7 pg Normal 26.0-34.0 [facility] Comment on above: Performed By: #### L [id number] ####Heel Seater: JORGE A MALDONADO ([phone])[address] MCHC 32.6 % Normal 30.5-36.0 [facility] Comment on above: Performed By: #### L [id number] ####Heel Seater: JORGE A MALDONADO ([phone])[address] MCV (RBC) [Entitic vol] 87.9 fL Normal 77.0-99.0 [facility] Comment on above: Performed By: #### L [id number] ####Heel Seater: JORGE A MALDONADO ([phone])[facility] ([facility])[address] [place] [address] Platelet mean volume (Bld) [Entitic vol] 10.3 fL Normal 9.0-12.7 [facility] Comment on above: Performed By: #### L [id number] ####Heel Seater: JORGE A MALDONADO ([phone])[facility] ([facility])[address] [place] [address] Platelets (Bld) [#/Vol] 199 10*3/uL Normal 140-440 [facility] Comment on above: Performed By: #### L [id number] ####Heel Seater: JORGE A MALDONADO ([phone])[facility] ([facility])[address] [place] [address] RBC (Bld) [#/Vol] 5.27 10*6/uL Normal 4.40-5.90 [facility] Comment on above: Performed By: #### L [id number] ####Heel Seater: JORGE A MALDONADO ([phone])[facility] ([facility])[address] [place] [address] WBC (Bld) [#/Vol] 5.3 10*3/uL Normal 3.6-10.7 [facility] Comment on above: Performed By: #### L [id number] ####Heel Seater: JORGE A MALDONADO ([phone])[facility] ([facility])[address] [place] [address] CBC W Auto Differential pane l (Bld)on 01-29-2025 Basophils (Bld) [#/Vol] 0.1 10*3/uL 0.0 - 0.2 10*3/uL [facility] Basophils/100 WBC (Bld) 1.5 % 0.0 - 2.0 % [facility] Eosinophils (Bld) [#/Vol] 0.2 10*3/uL 0.0 - 0.5 10*3/uL [facility] Eosinophils/100 WBC (Bld) 3.2 % 0.0 - 6.0 % [facility] Erythrocyte distribution width (RBC) [Ratio] 19 % High 11.5 - 15.0 % [facility] Hematocrit (Bld) [Volume fraction] 42.1 % 40.0 - 52.0 % [facility] Hemoglobin (Bld) [Mass/Vol] 13.7 g/dL 13.0 - 18.0 g/dL [facility] Immature granulocytes (Bld) [#/Vol] 0 10*3/uL NINF - 0.1 10*3/uL [facility] Immature granulocytes/100 WBC (Bld) 0.2 % 0.0 - 2.0 % [facility] Interpretation and review of laboratory results Abnormal [facility] Lymphocytes (Bld) [#/Vol] 1 10*3/uL 1.0 - 4.3 10*3/uL [facility] Lymphocytes/100 WBC (Bld) 20.6 % 15.0 - 45.0 % [facility] MCH (RBC) [Entitic mass] 28.5 pg 26. 0 - 34.[address] [facility] MCHC (RBC) [Mass/Vol] 32.5 % 30.5 - 36.0 % [facility] MCV (RBC) [Entitic vol] 87.5 fL 77.0 - 99.[address] [facility] Monocytes (Bld) [#/Vol] 0.4 10*3/uL 0.0 - 0.9 10*3/uL [facility] Monocytes/100 WBC (Bld) 8 % 5.0 - 13.0 % [facility] Neutrophils (Bld) [#/Vol] 3.2 10*3/uL 1.8 - 7.5 10*3/uL [facility] Neutrophils/100 WBC (Bld) 66.5 % 38.0 - 82.0 % [facility] Nucleated RBC/100 WBC (Bld) [Ratio] 0 % [facility] [employer] Platelet mean volume (Bld) [Entitic vol] 10.8 fL 9.0 - 12.[address] [facility] Platelets (Bld) [#/Vol] 206 10*3/uL 140 - 440 10*3/uL [facility] RBC (Bld) [#/Vol] 4.81 10*6/uL 4.40 - 5.9 0 10*6/uL [facility] WBC (Bld) [#/Vol] 4.8 10*3/uL 3.6 - 10.7 10*3/uL [facility] CBC WITH AUTO DIFFERENTIALon 01-29-2025 Basophils (Bld) [#/Vol] 0.1 10*3/uL Normal 0.0-0.2 [facility] Comment on above: Performed By: #### L [id number] ####Heel Seater: JORGE A MALDONADO ([phone])[facility] ([facility])[address] [place] [address] Basophils/100 WBC (Bld) 1.5 % Normal 0.0-2.0 [facility] Comment on above: Performed By: #### L [id number] ####Heel Seater: JORGE A MALDONADO ([phone])[facility] ([facility])[address] [place] [address] Eosinophils (Bld) [#/Vol] 0.2 10*3/uL Normal 0.0-0.5 [facility] Comment on above: Performed By: #### L [id number] ####Heel Seater: JORGE A MALDONADO ([phone])[facility] ([facility])[address] [place] [address] Eosinophils/100 WBC (Bld) 3.2 % Normal 0.0-6.0 [facility] Comment on above: Performed By: #### L [id number] ####Heel Seater: JORGE A MALDONADO ([phone])[facility])[address] [place] [address] Erythrocyte distribution width (RBC) [Ratio] 19.0 % High 11.5-15.0 [facility] Comment on above: Performed By: #### L [id number] ####Heel Seater: JORGE A MALDONADO ([phone])[facility])[address] [place] [address] Hematocrit (Bld) [Volume fraction] 42.1 % Normal 40.0-52.0 [facility] Comment on above: Performed By: #### L [id number] ####Heel Seater: JORGE A MALDONADO ([phone])[facility])[address] [place] [address] Hemoglobin (Bld) [Mass/Vol] 13.7 g/dL Normal 13.0-18.0 [facility] Comment on above: Performed By: #### L [id number] ####Heel Seater: JORGE A MALDONADO ([phone])[facility])[address] [place] [address] IMMATURE GRANS % 0.2 % Normal 0.0-2.0 [facility] Comment on above: Performed By: #### L [id number] ####Heel Seater: JORGE A MALDONADO ([phone])[facility])[address] [place] [address] IMMATURE GRANS ABSOLUTE 0.0 10*3/uL Normal <0.1 [facility] Comment on above: Performed By: #### L [id number] ####Heel Seater: JORGE A MALDONADO ([phone])[facility])[address] [place] [address] Lymphocytes (Bld) [#/Vol] 1.0 10*3/uL Normal 1.0-4.3 [facility] Comment on above: Performed By: #### L [id number] ####Heel Seater: JORGE A MALDONADO ([phone])[facility])[address] [place] [address] Lymphocytes/100 WBC (Bld) 20.6 % Normal 15.0-45.0 [facility] Comment on above: Performed By: #### L [id number] ####Heel Seater: JORGE A MALDONADO ([phone])[facility])[address] [place] [address] MCH (RBC) [Entitic mass] 28.5 pg Normal 26.0-34.0 [facility] Comment on above: Performed By: #### L [id number] ####Heel Seater: JORGE A MALDONADO ([phone])[facility])[address] [place] [address] MCHC 32.5 % Normal 30.5-36.0 [facility] Comment on above: Performed By: #### L [id number] ####Heel Seater: JORGE A MALDONADO ([phone])[facility])[address] [place] [address] MCV (RBC) [Entitic vol] 87.5 fL Normal 77.0-99.0 [facility] Comment on above: Performed By: #### L [id number] ####Heel Seater: JORGE A MALDONADO ([phone])[facility])[address] [place] [address] Monocytes (Bld) [#/Vol] 0.4 10*3/uL Normal 0.0-0.9 [facility] Comment on above: Performed By: #### L [id number] ####Heel Seater: JORGE A MALDONADO ([phone])[facility])[address] [place] [address] Monocytes/100 WBC (Bld) 8.0 % Normal 5.0-13.0 [facility] Comment on above: Performed By: #### L [id number] ####Heel Seater: JORGE A MALDONADO ([phone])[facility])[address] [place] [address] NEUTROPHILS ABSOLUTE 3.2 10*3/uL Normal 1.8-7.5 [facility] Comment on above: Performed By: #### L [id number] ####Heel Seater: JORGE A MALDONADO ([phone])[facility])[address] [place] [address] Neutrophils/100 WBC (Bld) 66.5 % Normal 38.0-82.0 [facility] Comment on above: Performed By: #### L [id number] ####Heel Seater: JORGE A MALDONADO ([phone])[facility])[address] [place] [address] NRBC 0.0 /100 WBCs Normal 0.0-2.0 [facility] Comment on above: Performed By: #### L [id number] ####Heel Seater: JORGE A MALDONADO ([phone])[facility] ([facility])[address] [place] [address] Platelet mean volume (Bld) [Entitic vol] 10.8 fL Normal 9.0-12.7 [facility] Comment on above: Performed By: #### L [id number] ####Heel Seater: JORGE A MALDONADO ([phone])[facility] ([facility])[address] [place] [address] Platelets (Bld) [#/Vol] 206 10*3/uL Normal 140-440 [facility] Comment on above: Performed By: #### L [id number] ####Heel Seater: JORGE A MALDONADO ([phone])[facility] ([facility])[address] [place] [address] RBC (Bld) [#/Vol] 4.81 10*6/uL Normal 4.40-5.90 [facility] Comment on above: Performed By: #### L [id number] ####Heel Seater: JORGE A MALDONADO ([phone])[facility] ([facility])[address] [place] [address] WBC (Bld) [#/Vol] 4.8 10*3/uL Normal 3.6-10.7 [facility] Comment on above: Performed By: #### L [id number] ####Heel Seater: JORGE A MALDONADO ([phone])[facility] ([facility])[address] [place] [address] CBC panel Auto (Bld)on 01-29 Erythrocyte distribution width (RBC) [Ratio] 19.6 % High 11.5 - 15.0 % [facility] Hematocrit (Bld) [Volume fraction] 46.3 % 40.0 - 52.0 % [facility] Hemoglobin (Bld) [Mass/Vol] 15.1 g/dL 13.0 - 18.0 g/dL [facility] Interpretation and review of laboratory results Abnormal [facility] MCH (RBC) [Entitic mass] 28.7 pg 26. 0 - 34.[address] [facility] MCHC (RBC) [Mass/Vol] 32.6 % 30.5 - 36.0 % [facility] MCV (RBC) [Entitic vol] 87.9 fL 77.0 - 99.[address] [facility] Platelet mean volume (Bld) [Entitic vol] 10.3 fL 9.0 - [address] [facility] Platelets (Bld) [#/Vol] 199 10*3/uL 140 - 440 10*3/uL [facility] RBC (Bld) [#/Vol] 5.27 10*6/uL 4.40 - 5.9 0 10*6/uL [facility] WBC (Bld) [#/Vol] 5.3 10*3/uL 3.6 - 10.7 10*3/uL [facility] COMPREHENSIVE METABOLIC PANE Greg 01-29-2025 Albumin [Mass/Vol] 3.6 g/dL Normal 3.4-4.8 [facility] Comment on above: Performed By: #### Russell AB103, [id number], LAB17 ####Heel Seater: JORGE A MALDONADO ([phone])[facility] ([facility])[address] [place] [address] ALP [Catalytic activity/Vol] 118 U/L Normal 40-150 [facility] Comment on above: Performed By: #### Russell [id number], [id number], LAB17 ####Heel Seater: JORGE A MALDONADO ([phone])[facility] ([facility])[address] [place] [address] ALT [Catalytic activity/Vol] 13 U/L Normal <40 [facility] Comment on above: Performed By: #### Russell AB103, [id number], LAB17 ####Heel Seater: JORGE A MALDONADO ([phone])[facility] ([facility])[address] [place] [address] Anion gap [Moles/Vol] 11 mmol/L Normal 3-13 [facility] Comment on above: Performed By: #### L AB103, [id number], LAB17 ####Heel Seater: JORGE A MALDONADO ([phone])[facility] ([facility])[address] [place] [address] AST [Catalytic activity/Vol] 27 U/L Normal <34 [facility] Comment on above: Performed By: #### L AB103, [id number], LAB17 ####Heel Seater: JORGE A MALDONADO ([phone])[facility] ([facility])[address] [place] [address] Bilirubin [Mass/Vol] 1.4 mg/dL High <1.2 [facility] Comment on above: Performed By: #### L AB103, [id number], LAB17 ####Heel Seater: JORGE A MALDONADO ([phone])[facility] ([facility])[address] [place] [address] Calcium [Mass/Vol] 9.6 mg/dL Normal 8.8-10.0 [facility] Comment on above: Performed By: #### Russell AB103, [id number], LAB17 ####Heel Seater: JORGE A MALDONADO ([phone])[facility] [place] [address] Chloride [Moles/Vol] 106 mmol/L Normal 98-107 [facility] Comment on above: Performed By: #### Russell AB103, [id number], LAB17 ####Heel Seater: JORGE A MALDONADO ([phone])[facility] ([facility])[address] [place] [address] CO2 [Moles/Vol] 24 mmol/L Normal 23-31 [facility] Comment on above: Performed By: #### Russell AB103, [id number], LAB17 ####Heel Seater: JORGE A MALDONADO ([phone])[facility] ([facility])[address] [place] [address] [place] Creatinine [Mass/Vol] 2.08 mg/dL High 0.72-1.25 [facility] Comment on above: Performed By: #### L AB103, [id number], LAB17 ####Heel Seater: JORGE A MALDONADO ([phone])[facility] ([facility])[address] [place] [address] GLOMERULAR FILTRATION RATE ML/MIN/1.73 SQ M.PREDICTED 30.6 mL/min/1.73m*2 Low >60.0 [facility] Comment on above: Result Comment: Calc ulation based on the Chronic Kidney Disease Epidemiology Collaboration (CKD-EPI) equation refit without adjustment for race Performed By: #### L AB103, [id number], LAB17 ####Heel Seater: JORGE A MALDONADO ([phone])[facility] ([facility])[address] [place] [address] Glucose [Mass/Vol] 107 mg/dL Normal 82-115 [facility] Comment on above: Performed By: #### L AB103, [id number], LAB17 ####Heel Seater: JORGE A MALDONADO ([phone])[facility] ([facility])[address] [place] [address] Potassium [Moles/Vol] 3.4 mmol/L Low 3.5-5.1 [facility] Comment on above: Result Comment: [facility] potassium values may be up to 0.5 mmol/L lower than serum values. Performed By: #### Russell AB103, [id number], LAB17 ####Heel Seater: JORGE A MALDONADO ([phone])[facility] ([facility])[address] [place] [address] [place] Protein [Mass/Vol] 7.1 g/dL Normal 6.4-8.3 [facility] Comment on above: Performed By: #### Russell AB103, [id number], LAB17 ####Heel Seater: JORGE A MALDONADO ([phone])[facility] ([facility])[address] [place] [address] [place] Sodium [Moles/Vol] 141 mmol/L Normal 136-145 [facility] Comment on above: Performed By: #### L AB103, [id number], LAB17 ####Heel Seater: JORGE A MALDONADO ([phone])[facility])[address] [place] [address] [place] Urea nitrogen [Mass/Vol] 36 mg/dL High 9-23 [facility] Comment on above: Performed By: #### L AB103, [id number], LAB17 ####Heel Seater: JORGE A MALDONADO ([phone])[facility])[address] [place] [address] Calcium.ionized [Moles/Vol]o n 01-29-2025 Calcium.ionized (Bld) [Moles/Vol] 4.3 mg/dL 4.30 - 5.20 mg/dL [facility] Interpretation and review of laboratory results Normal [facility] PH, IONIZED CALCIUM 7.38 7.31 - 7.46 [facility] Calcium.ionized [Moles/Vol]O rdered By: Katie Huizar on 01-29-2025 Calcium.ionized (Bld) [Moles/Vol] 4.2 mg/dL Low 4.30 - 5.20 mg/dL [facility] Interpretation and review of laboratory results Abnormal [facility] PH, IONIZED CALCIUM 7.38 7.31 - 7.46 [facility] Comprehensive metabolic 1998 panelon 01-29-2025 Albumin [Mass/Vol] 3.6 g/dL 3.4 - 4.8 g/dL [facility] ALP [Catalytic activity/Vol] 118 U/L 40 - 150 U/L [facility] ALT [Catalytic activity/Vol] 13 U/L NINF - 40 U/L [facility] Anion gap [Moles/Vol] 11 mmol/L 3 - 13 mmol/L [facility] AST [Catalytic activity/Vol] 27 [facility]L [facility] Bilirubin [Mass/Vol] 1.4 mg/dL High [facility] 1.2 mg/dL [facility] Calcium [Mass/Vol] 9.6 mg/dL 8.8 - 10. 0 mg/dL [facility] Chloride [Moles/Vol] 106 mmol/L 98 - 10 7 mmol/L [facility] CO2 [Moles/Vol] 24 mmol/L 23 - 31 mmol/L [facility] Creatinine [Mass/Vol] 2.08 mg/dL High 0.72 - 1.25 mg/dL [facility] GFR/1.73 sq M.predicted (S/P/Bld) [Vol rate/Area] 30.6 mL/min Low - PINF [facility] Comment on above: Calculation based on the Chronic Kidney Disease Epidemiology Collaboration (CKD-EPI) equation refit without adjustment for race Glucose [Mass/Vol] 107 mg/dL 82 - 115 mg/dL [facility] Interpretation and review of laboratory results Abnormal [facility] Potassium [Moles/Vol] 3.4 mmol/L Low 3.5 - 5.1 mmol/L [facility] Comment on above: Plasma potassium erika ues may be up to 0.5 mmol/L lower than serum values. Protein [Mass/Vol] 7.1 g/dL 6.4 - 8.3 g/dL [facility] Sodium [Moles/Vol] 141 mmol/L 136 - 145 mmol/L [facility] Urea nitrogen [Mass/Vol] 36 mg/dL High 9 - 23 mg/d L [facility] [employer] Consulton 01-29-2025 Consult Attestation signed by Donovan Hoffman MD at 01/29/2025 1:12 PM I, Dr. Donovan Hoffman, saw and evaluated the patient in W5-541/W5-541 B. I personally obtained the velazquez and [...] ejection fraction, hypertension who who presented to [facility] with a chief complaint of shortness of breath and volume overload. He was seen by Dr. Lund yesterday and transferred here to [facility] due to lack of beds. IV [...] Hoffman MD, PhD Advanced Heart Failure Cardiology [facility] [place] 1:12 PM 01/29/[address] [facility] [place] [facility] Cardiology /Electrophysiology Consult Note Reason for Consult/Chief Complaint: Dyspnea Referring provider: Dr. Hall Established reach truck operator: Dr. Roth History of Present Illness: Megan Nascimento is a 84 y.o. 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 Normal [facility] Laboratory - Chemistry and C hemistry - challengeon 01-29-2025 Glucose [Mass/Vol] 138 mg/dL High 70 - 100 mg/dL [facility] Magnesium [Mass/Vol] 1.7 mg/dL 1.6 - 2 .6 mg/dL [facility] Glucose [Mass/Vol] 106 mg/dL High 70 - 100 mg/dL [facility] Glucose [Mass/Vol] 114 mg/dL High 70 - 100 mg/dL [facility] Magnesium [Mass/Vol] 1.7 mg/dL 1.6 - 2 .6 mg/dL [facility] Glucose [Mass/Vol] 139 mg/dL High 70 - 100 mg/dL [facility] MAGNESIUMon 01-29-2025 Magnesium [Mass/Vol] 1.7 mg/dL Normal 1.6-2.6 [facility] Comment on above: Result Comment: MIO Klein COMMENTS: Higher values can be expected in females during menses. Performed By: #### L AB103, [id number], LAB17 ####Heel Seater: JORGE A MALDONADO ([phone])[facility] ([facility])[address] [place] [address] Magnesium [Mass/Vol] 1.7 mg/dL Normal 1.6-2.6 [facility] Comment on above: Result Comment: MIO Klein COMMENTS: Higher values can be expected in females during menses. Performed By: #### L AB103, [id number], LAB17 #### Heel Seater: JORGE A MALDONADO ([phone]) [facility] ([facility]) [address] [place] [address] Magnesium [Mass/Vol]on 01-29 Higher values can be expected in females during menses. [facility] Interpretation and review of laboratory results Normal [facility] Higher values can be expected in females during menses. [facility] No Panel Informationon 01-29 Interpretation and review of laboratory results Abnormal [facility] Performed by: [address] [address] CLIA ID: [id number] [facility] Interpretation and review of laboratory results Normal [facility] Interpretation and review of laboratory results Abnormal [facility] Performed by: [address] [address] CLIA ID: [id number] [facility] Interpretation and review of laboratory results Abnormal [facility] Performed by: [facility], [address] [place] [address] CLIA ID: [id number] [facility] Interpretation and review of laboratory results Abnormal [facility] Performed by: [facility], [address] [place] [address] CLIA ID: [id number] [facility] PHOSPHORUSon 01-29-2025 Phosphate [Mass/Vol] 2.4 mg/dL Normal 2.3-4.7 [facility] Comment on above: Performed By: #### L AB103, [id number], LAB17 ####Heel Seater: JORGE A MALDONADO ([phone])[facility] [place] [address] Phosphate [Mass/Vol] 2.7 mg/dL Normal 2.3-4.7 [facility] Comment on above: Performed By: #### L AB103, LAB15, [id number] ####Heel Seater: JORGE A MALDONADO ([phone])[facility] ([facility])[address] [place] [address] [place] Phosphate [Moles/Vol]on 01-18 Phosphate [Mass/Vol] 2.4 mg/dL 2.3 - 4 .7 mg/dL [facility] Interpretation and review of laboratory results Normal [facility] Phosphate [Mass/Vol] 2.7 mg/dL 2.3 - 4 .7 mg/dL [facility] 36on 01-28-2025 36 ----- Message from Ralph Roth MD sent at 01/26/2025 5:16 PM EDT ----- Please call Friday for update, thank you Normal [facility] BASIC METABOLIC PANELon 01-18 Anion gap [Moles/Vol] 14 mmol/L High 3-13 [facility] Comment on above: Performed By: #### L AB15, [id number], [id number] ####Heel Seater: DIGNA MORALES ([phone])[facility] ([facility])[address] [place] [address] [place] Calcium [Mass/Vol] 8.7 mg/dL Low 8.8-10.0 [facility] Comment on above: Performed By: #### L AB15, [id number], [id number] ####Heel Seater: DIGNA MORALES ([phone])[facility] [place] ([facility])[address] Chloride [Moles/Vol] 106 mmol/L Normal 98-107 [facility] Comment on above: Performed By: #### L AB15, [id number], [id number] ####Heel Seater: DIGNA MORALES ([phone])[facility] [place] ([facility])[address] CO2 [Moles/Vol] 21 mmol/L Low 23-31 [facility] Comment on above: Performed By: #### L AB15, [id number], [id number] ####Heel Seater: DIGNA MORALES ([phone])[facility] [place] ([facility])[address] Creatinine [Mass/Vol] 2.37 mg/dL High 0.72-1.25 [facility] Comment on above: Performed By: #### L AB15, [id number], [id number] ####Heel Seater: DIGNA MORALES ([phone])[facility] ([facility])[address] GLOMERULAR FILTRATION RATE ML/MIN/1.73 SQ M.PREDICTED 26.2 mL/min/1.73m*2 Low >60.0 [facility] Comment on above: Result Comment: Calc ulation based on the Chronic Kidney Disease Epidemiology Collaboration (CKD-EPI) equation refit without adjustment for race ORDER COMMENTS: Slightly Hemolyzed Performed By: #### L AB15, [id number], [id number] ####Heel Seater: DIGNA MORALES ([phone])[facility] [place] ([facility])[address] Glucose [Mass/Vol] 79 mg/dL Low 82-115 [facility] Comment on above: Performed By: #### L AB15, [id number], [id number] ####Heel Seater: DIGNA MORALES ([phone])[facility] ([facility])[address] Potassium [Moles/Vol] 4.2 mmol/L Normal 3.5-5.1 [facility] Comment on above: Result Comment: TC Significant interference from hemolysis. Result integrity compromised. Interpret with caution. Performed By: #### L AB15, [id number], [id number] ####Heel Seater: DIGNA MORALES ([phone])[facility] ([facility])[address] Sodium [Moles/Vol] 141 mmol/L Normal 136-145 [facility] Comment on above: Performed By: #### Russell AB15, [id number], [id number] ####Heel Seater: DIGNA MORALES ([phone])[facility] ([facility])[address] Urea nitrogen [Mass/Vol] 40 mg/dL High 9-23 [facility] Comment on above: Performed By: #### L AB15, [id number], [id number] ####Heel Seater: DIGNA MORALES ([phone])[facility] [place] [address] Basic metabolic 1998 panelon 01-28-2025 Anion gap [Moles/Vol] 14 mmol/L High 3 - 13 mmol/L [facility] Calcium [Mass/Vol] 8.7 mg/dL Low 8.8 - 10. 0 mg/dL [facility] Chloride [Moles/Vol] 106 mmol/L 98 - 10 7 mmol/L [facility] CO2 [Moles/Vol] 21 mmol/L Low 23 - 31 mmol/L [facility] Creatinine [Mass/Vol] 2.37 mg/dL High 0.72 - 1.25 mg/dL [facility] GFR/1.73 sq M.predicted (S/P/Bld) [Vol rate/Area] 26.2 mL/min Low - PINF [facility] Comment on above: Calculation based on the Chronic Kidney Disease Epidemiology Collaboration (CKD-EPI) equation refit without adjustment for race Glucose [Mass/Vol] 79 mg/dL Low 82 - 115 mg/dL [facility] [employer] Interpretation and review of laboratory results Abnormal [facility] [employer] Potassium [Moles/Vol] 4.2 mmol/L 3.5 - 5.1 mmol/L [facility] [employer] Comment on above: TC Significant interference from hemolysis. Result integrity compromised. Interpret with caution. Sodium [Moles/Vol] 141 mmol/L 136 - 145 mmol/L [facility] [employer] Urea nitrogen [Mass/Vol] 40 mg/dL High 9 - 23 mg/d L [employer] Slightly Hemolyzed [facility] [employer] CBC W Auto Differential pane l (Bld)on 01-28-2025 Basophils (Bld) [#/Vol] 0.1 10*3/uL 0.0 - 0.2 10*3/uL [facility] [employer] Basophils/100 WBC (Bld) 1.7 % 0.0 - 2.0 % [facility] [employer] Eosinophils (Bld) [#/Vol] 0.2 10*3/uL 0.0 - 0.5 10*3/uL [facility] [employer] Eosinophils/100 WBC (Bld) 2.9 % 0.0 - 6.0 % [facility] [employer] Erythrocyte distribution width (RBC) [Ratio] 19.5 % High 11.5 - 15.0 % [facility] [employer] Hematocrit (Bld) [Volume fraction] 46 % 40.0 - 52.0 % [facility] [employer] Hemoglobin (Bld) [Mass/Vol] 15.2 g/dL 13.0 - 18.0 g/dL [facility] [employer] Immature granulocytes (Bld) [#/Vol] 0 10*3/uL NINF - 0.1 10*3/uL [facility] [employer] Immature granulocytes/100 WBC (Bld) 0.3 % 0.0 - 2.0 % [facility] [employer] Interpretation and review of laboratory results Abnormal [facility] [employer] Lymphocytes (Bld) [#/Vol] 1.3 10*3/uL 1.0 - 4.3 10*3/uL [facility] [employer] Lymphocytes/100 WBC (Bld) 22.5 % 15.0 - 45.0 % [facility] [employer] MCH (RBC) [Entitic mass] 28.8 pg 26. 0 - 34.[address] [facility] MCHC (RBC) [Mass/Vol] 33 % 30.5 - 36.0 % [facility] MCV (RBC) [Entitic vol] 87.3 fL 77.0 - 99.[address] [facility] Monocytes (Bld) [#/Vol] 0.5 10*3/uL 0.0 - 0.9 10*3/uL [facility] Monocytes/100 WBC (Bld) 8.7 % 5.0 - 13.0 % [facility] Neutrophils (Bld) [#/Vol] 3.8 10*3/uL 1.8 - 7.5 10*3/uL [facility] Neutrophils/100 WBC (Bld) 63.9 % 38.0 - 82.0 % [facility] Nucleated RBC/100 WBC (Bld) [Ratio] 0 % [facility] Platelet mean volume (Bld) [Entitic vol] 10.4 fL 9.0 - 12.[address] [facility] Platelets (Bld) [#/Vol] 230 10*3/uL 140 - 440 10*3/uL [facility] RBC (Bld) [#/Vol] 5.27 10*6/uL 4.40 - 5.9 0 10*6/uL [facility] WBC (Bld) [#/Vol] 5.9 10*3/uL 3.6 - 10.7 10*3/uL [facility] CBC WITH AUTO DIFFERENTIALon 01-28-2025 Basophils (Bld) [#/Vol] 0.1 10*3/uL Normal 0.0-0.2 [facility] Comment on above: Performed By: #### L [id number] ####Heel Seater: DIGNA MORALES ([phone])[facility] ([facility])[address] Basophils/100 WBC (Bld) 1.7 % Normal 0.0-2.0 [facility] Comment on above: Performed By: #### L [id number] ####Heel Seater: DIGNA MORALES ([phone])[facility] ([facility])[address] Eosinophils (Bld) [#/Vol] 0.2 10*3/uL Normal 0.0-0.5 [facility] Comment on above: Performed By: #### L [id number] ####Heel Seater: DIGNA MORALES ([phone])[facility] [place] [facility] [place] [address] Eosinophils/100 WBC (Bld) 2.9 % Normal 0.0-6.0 [facility] Comment on above: Performed By: #### L [id number] ####Heel Seater: DIGNA MORALES ([phone])[facility] ([facility])[address] [place] [address] Erythrocyte distribution width (RBC) [Ratio] 19.5 % High 11.5-15.0 [facility] Comment on above: Performed By: #### L [id number] ####Heel Seater: DIGNA MORALES ([phone])[facility] ([facility])[address] [place] [address] Hematocrit (Bld) [Volume fraction] 46.0 % Normal 40.0-52.0 [facility] Comment on above: Performed By: #### L [id number] ####Heel Seater: DIGNA MORALES ([phone])[facility] ([facility])[address] [place] [address] Hemoglobin (Bld) [Mass/Vol] 15.2 g/dL Normal 13.0-18.0 [facility] Comment on above: Performed By: #### L [id number] ####Heel Seater: DIGNA MORALES ([phone])[facility] ([facility] [place] [address] IMMATURE GRANS % 0.3 % Normal 0.0-2.0 [facility] Comment on above: Performed By: #### L [id number] ####Heel Seater: DIGNA MORALES ([phone])[facility] ([facility] [place] [address] IMMATURE GRANS ABSOLUTE 0.0 10*3/uL Normal <0.1 [facility] Comment on above: Performed By: #### L [id number] ####Heel Seater: DIGNA MORALES ([phone])[facility] [place] ([facility])[address] Lymphocytes (Bld) [#/Vol] 1.3 10*3/uL Normal 1.0-4.3 [facility] Comment on above: Performed By: #### L [id number] ####Heel Seater: DIGNA MORALES ([phone])[facility] ([facility])[address] Lymphocytes/100 WBC (Bld) 22.5 % Normal 15.0-45.0 [facility] Comment on above: Performed By: #### L [id number] ####Heel Seater: DIGNA MORALES ([phone])[facility] ([facility])[address] MCH (RBC) [Entitic mass] 28.8 pg Normal 26.0-34.0 [facility] Comment on above: Performed By: #### L [id number] ####Heel Seater: DIGNA MORALES ([phone])[facility]ENTER[facility] ([facility])[address] MCHC 33.0 % Normal 30.5-36.0 [facility] Comment on above: Performed By: #### L [id number] ####Heel Seater: DIGNA MORALES ([phone])[facility]ENTER[facility] ([facility])[address] MCV (RBC) [Entitic vol] 87.3 fL Normal 77.0-99.0 [facility] Comment on above: Performed By: #### L [id number] ####Heel Seater: DIGNA MORALES ([phone])[facility]ENTER[facility] ([facility])[address] Monocytes (Bld) [#/Vol] 0.5 10*3/uL Normal 0.0-0.9 [facility] Comment on above: Performed By: #### L [id number] ####Heel Seater: DIGNA MORALES ([phone])[facility] [place] ([facility])[address] Monocytes/100 WBC (Bld) 8.7 % Normal 5.0-13.0 [facility] Comment on above: Performed By: #### L [id number] ####Heel Seater: DIGNA MORALES ([phone])[facility] [place] ([facility])[address] NEUTROPHILS ABSOLUTE 3.8 10*3/uL Normal 1.8-7.5 [facility] Comment on above: Performed By: #### L [id number] ####Heel Seater: DIGNA MORALES ([phone])[facility] [place] ([facility])[address] Neutrophils/100 WBC (Bld) 63.9 % Normal 38.0-82.0 [facility] Comment on above: Performed By: #### L [id number] ####Heel Seater: DIGNA MORALES ([phone])[facility] [place] ([facility])[address] NRBC 0.0 /100 WBCs Normal 0.0-2.0 [facility] Comment on above: Performed By: #### L [id number] ####Heel Seater: DIGNA MORALES ([phone])[facility] [place] ([facility])[address] Platelet mean volume (Bld) [Entitic vol] 10.4 fL Normal 9.0-12.7 [facility] Comment on above: Performed By: #### L [id number] ####Heel Seater: DIGNA MORALES ([phone])[facility] [place] (SB[facility]AB)[address] Platelets (Bld) [#/Vol] 230 10*3/uL Normal 140-440 [facility] Comment on above: Performed By: #### L [id number] ####Heel Seater: DIGNA MORALES ([phone])[facility] (SBHLAB)[address] RBC (Bld) [#/Vol] 5.27 10*6/uL Normal 4.40-5.90 [facility] Comment on above: Performed By: #### L [id number] ####Heel Seater: DIGNA MORALSE ([phone])[facility] (SBHLAB)[address] [place] [address] WBC (Bld) [#/Vol] 5.9 10*3/uL Normal 3.6-10.7 [facility] Comment on above: Performed By: #### L [id number] ####Heel Seater: DIGNA MORALES ([phone])[facility] ([facility] [place] [address] ECG 12-LEADon 01-28-2025 ECG 12-LEAD IMPRESSION: Ventricular-paced rhythm No further analysis attempted due to paced rhythm Electronically Signed On 01-28-2025 17:24:48 EDT by Eduardo Feliciano [facility] ED Nursing Noteon 01-28-2025 ED Nursing Note Report given to Amos Crooks for transfer to [facility] ED Nursing Note Report called to Ca Mojica RN [facility] ED Nursing Note 250 cc of urine empted this am, pt wheeled to restroom, voided and stooled. Normal [facility] ED Nursing Note No cardiac monitoring available at this time. Provider aware [facility] ED Provider Noteon ED Provider Note [...] at rest. Denies chest pain. Seen at [employer] office yesterday and was noted to be [...] 1.3 Mon (more content not included)... Normal [facility] HIGH SENSITIVITY TROPONIN, S ERIAL BASELINEon 01-28-2025 TROPONIN HS SERIAL BASELINE 32 ng/L Normal <=35 [facility] Comment on above: Result Comment: In i ndividuals presenting with symptoms > 2h, a baseline troponin <= 5 ng/L suggests acute cardiac injury is unlikely and further serial testing is generally not indicated. Performed By: #### L AB15, [id number], [id number] ####Heel Seater: DIGNA MORALES ([phone])[facility] ([facility])[address] [place] [address] Laboratory - Chemistry and C hemistry - challengeon 01-28-2025 Glucose [Mass/Vol] 167 mg/dL High 70 - 100 mg/dL [facility] Glucose [Mass/Vol] 113 mg/dL High 70 - 100 mg/dL [facility] Glucose [Mass/Vol] 89 mg/dL 70 - 100 mg/dL [facility] Glucose [Mass/Vol] 74 mg/dL 70 - 100 mg/dL [facility] Glucose [Mass/Vol] 124 mg/dL High 70 - 100 mg/dL [facility] NT PRO BNPon 01-28-2025 Natriuretic peptide B (Bld) [Mass/Vol] 01758 pg/mL High <450 [facility] Comment on above: Performed By: #### L AB15, [id number], [id number] ####Heel Seater: DIGNA MORALES ([phone])[facility] ([facility])[address] [place] [address] Natriuretic peptide B [Mass/ Vol]on 01-28-2025 Interpretation and review of laboratory results Abnormal [facility] Natriuretic peptide B (Bld) [Mass/Vol] 73942 pg/mL High NINF - 450 pg/mL [facility] No Panel Informationon 01-28 Interpretation and review of laboratory results Abnormal [facility] Performed by: [facility], [address] [place] [address] [place] [address] CLIA ID: [id number] [facility] Interpretation and review of laboratory results Abnormal [facility] Performed by: [facility], [address] [facility] [place] [address] CLIA ID: [id number] [facility] Ventricular-paced rhythm No further analysis attempted due to paced rhythm Electronically Signed On 01-28-2025 17:24:48 EDT by Eduardo Feliciano CV Eduardo Drake MD - 01/28/2025 IMPRESSION: Ventricular-paced rhythm No further analysis attempted due to paced rhythm Electronically Signed On 01-28-2025 17:24:48 EDT by Eduardo Feliciano [facility] Interpretation and review of laboratory results Normal [facility]formed by: [facility], [address] [place] [address] CLIA ID: [id number] [facility] Interpretation and review of laboratory results Normal [facility] Performed by: [facility], [address] [place] [address] CLIA ID: [id number] [facility] Interpretation and review of laboratory results Abnormal [facility] Performed by: [facility], [address] [place] [address] CLIA ID: [id number] [facility] Interpretation and review of laboratory results Normal [facility] Troponin HS Serial Baseline 32 ng/L NINF - 35 ng/L [facility] Comment on above: In individuals prese nting with symptoms > 2h, a baseline troponin <= 5 ng/L suggests acute cardiac injury is unlikely and further serial testing is generally not indicated. [facility] No Panel InformationOrdered By: Eduardo Feliciano on 01-28-2025 P [place] 55 degrees [facility] [employer] Work Phone: OK Interval 264 ms [facility] [employer] Work Phone: QRS [place] 223 degrees [facility] [employer] Work Phone: QRSD Interval 144 ms [facility] [employer] Work Phone: QT Interval 469 ms [employer] Phone: QTC Interval 507 ms [employer] Work Phone: T Wave [place] 37 degrees [employer] Phone: [employer] Phone: Vital signsOrdered By: Eduardo Feliciano on 01-28-2025 Heart rate 70 /min bpm [employer] Phone: XR Chest Single viewon 01-28 See findings. Report Dictated on Electronically Signed By: David Preston MD Electronically Signed Date/Time: 01/28/2025 2:33 AM EDT [facility] [employer] Patient Name: MEGAN NASCIMENTO : 1940 Exam Date/Time: 01/28/2025 02:17 Procedure: XR CHEST [...] change of the thoracic spine is noted. [facility] David Preston MD - 01/28/2025 Patient Name: MEGAN NASCIMENTO : 1940 Exam Date/Time: 01/28/2025 02:17 Procedure: XR CHEST [...] Electronically Signed Date/Time: 01/28/2025 2:[address] [facility] Radiology Study observation (narrative) [facility] XR Chest Single viewOrdered By: David Preston on 01-28-[address] [facility] Work Phone: No Panel Informationon 01-26 Sinus Rhythm -First degree A-V block -A sesi, V pacing ABNORMAL [facility] Office Visiton 01-26-2025 Follow-up visit [id number] Megan Nascimento 1940 M Date Provider Department Center 01/26/2025 [id number]-JVURKFWRALPH [facility]OTH [facility] CV Susan Family History Problem Relation Age of Onset High Blood Pressure Father High Blood Pressure Mother Family Status - Relation Status Age at Father Mother Level of Service:52975 OK OFFICE/OUTPATIENT ESTABLISHED MOD MDM 30 MIN Reason for Visit and Comments: Follow-up [690017] Normal [facility] Progress Noteon 01-26-2025 Progress Note [facility] [place] [address] [place] [address] [facility] [address] Dept: [phone] Dept Loc: [phone] DATE of SERVICE:01/26/25 TIME of SERVICE: 3:59 PM : 1940 Chief Complaint: Chief Complaint Patient presents with Follow-up History of PresentIllness: Megna Nascimento is a 84 y.o. male here [...] so he went to the hospital in [place]. Before he might have diverticulitis. His creatinine [...] ventricular pacing Focused cardiac ultrasound: Not done Chemical Laboratory Assistant present for focused cardiac ultrasound: Not applicable [...] I assum (more content not included)... Normal [facility] 36on 01-25-2025 36 PC to patient. Reviewed RBC recommendations. Reminded of appt tomorrow. He verbalized understanding. Normal [facility] 36 PC to patient. LMOM to call office Normal [facility] 36 PC to patient. LMOM he can take an extra torsemide 20 mg today. He is to call me back to confirm he received message. Normal [facility] 36on 01-24-2025 36 PC to patient. Leg swelling started last week after he went on a road trip to [place]. They did stop and get out of [...] done in late November that is [place]. He is asking if he should take extra torsemide. Will send to RBC. He is due for appt. Scheduled him for this Friday at 3:20. He verbalized understanding. Normal [facility] 36 Pt stating having sob and leg swelling Normal [facility] Abdomen/Pelvis without Conto n 12-12-2024 Abdomen/Pelvis without Cont Normal [facility] Absolute lymphocyte countOrd ered By: Rena Franklin on 12-12-2024 Lymphocytes Auto (Unsp spec) [#/Vol] 1.05 10*3/uL 0.83-4.51 [facility] Absolute neutrophil countOrd ered By: Rena Franklin on 12-12-2024 Neutrophils (Bld) [#/Vol] 4.6 10*3/uL 2.0-7.7 [facility] Anion gap in Serum or Plasma Ordered By: Rena Franklin on 12-12-2024 Anion gap [Moles/Vol] 17 mmol/L High 5-[address] [facility] Automated lymphocyte count a s percentage of total leukocytesOrdered By: Rena Franklin on 12-12-2024 Lymphocytes/100 WBC Auto (Unsp spec) 16.7 % Low 19-41 [facility] BUN/creatinine ratioOrdered By: Rena Franklin on 12-12-2024 Urea nitrogen/Creatinine [Mass ratio] 14.4 mg/mg 10-20 [facility] Basophil percentageOrdered B y: Rena Franklin on 12-12-2024 Basophils/100 WBC (Bld) 1.3 % High 0-1 [facility] Bilirubin Test strip Ql (U)O rdered By: Rena Franklin on 12-12-2024 Bilirubin Ql (U) Negative Negative [facility] Bilirubin, totalOrdered By: Rena Franklin on 12-12-2024 Bilirubin [Mass/Vol] 0.83 mg/dL 0.00-1.30 [facility] CBC W/Diff, Automatedon 11-19 Absolute Lymph 1.05 X10 3/uL Normal 0.83-4.51 [facility] Comment on above: Performed By: #### L 501.2450, L500.4050, L100.0100 ####[facility] [address] [place], [address] Absolute Neut 4.6 X10 3/uL Normal 2.0-7.7 [facility] Comment on above: Performed By: #### L 501.2450, L500.4050, L100.0100 ####[facility] [address] [place], [address] Basophils/100 WBC (Bld) 1.3 % High 0-1 [facility] Comment on above: Performed By: #### L 501.2450, L500.4050, L100.0100 ####[facility] [address] [place], [address] Eosinophils/100 WBC (Bld) 2.4 % Normal 0-5 [facility] Comment on above: Performed By: #### L 501.2450, L500.4050, L100.0100 ####[facility] [address] [place], [address] Erythrocyte distribution width (RBC) [Ratio] 16.2 % High 11.6-14.6 [facility] Comment on above: Performed By: #### L 501.2450, L500.4050, L100.0100 ####[facility] [address] [place], [address] Hematocrit (Bld) [Volume fraction] 39.7 % Low 40-54 [facility] Comment on above: Performed By: #### L 501.2450, L500.4050, L100.0100 ####[facility] [address] [place], [address] Hemoglobin (Bld) [Mass/Vol] 12.9 g/dL Low 13.0-16.5 [facility] Comment on above: Performed By: #### L 501.2450, L500.4050, L100.0100 ####[facility] [address] [place], [address] IG% 0.500 Normal 0.0-0.9 [facility] Comment on above: Result Comment: IG% - Immature Granulocytes (promyelocytes, myelocytes andmetamyelocytes) > 1% indicates that a LEFT SHIFT is Present. Performed By: #### L 501.2450, L500.4050, L100.0100 ####[facility] [address] [place], [address] Lymphocytes/100 WBC (Bld) 16.7 % Low 19-41 [facility] Comment on above: Performed By: #### L 501.2450, L500.4050, L100.0100 ####[facility] [address] [place], [address] MCH (RBC) [Entitic mass] 28.9 pg Normal 27.0-32.0 [facility] Comment on above: Performed By: #### L 501.2450, L500.4050, L100.0100 ####[facility] [address] [place], [address] MCHC (RBC) [Mass/Vol] 32.5 g/dL Normal 32-[address] [facility] Comment on above: Performed By: #### L 501.2450, L500.4050, L100.0100 ####[facility] [address] [place], [address] MCV (RBC) [Entitic vol] 89.0 fL Normal 80-94 [facility] Comment on above: Performed By: #### L 501.2450, L500.4050, L100.0100 ####[facility] [address] [place], [address] Monocytes/100 WBC (Bld) 6.3 % Normal 0-10 [facility] Comment on above: Performed By: #### L 501.2450, L500.4050, L100.0100 ####[facility] [address] [place], [address] Neutrophils/100 WBC (Bld) 72.8 % High 47-70 [facility] Comment on above: Performed By: #### L 501.2450, L500.4050, L100.0100 ####[facility] [address] [place], [address] Nucleated RBC (Bld) [#/Vol] 0 10*3/uL Normal 0-5 [facility] Comment on above: Performed By: #### L 501.2450, L500.4050, L100.0100 ####[facility] [address] [place], [address] Platelet mean volume (Bld) [Entitic vol] 10.7 fL Normal 6.2-12.0 [facility] Comment on above: Performed By: #### L 501.2450, L500.4050, L100.0100 ####[facility] [address] [place], [address] Platelets (Bld) [#/Vol] 210 10*3/uL Normal 150-450 [facility] Comment on above: Performed By: #### L 501.2450, L500.4050, L100.0100 ####[facility] [address] [place], [address] RBC (Bld) [#/Vol] 4.46 10*6/uL Low 4.6-6.2 [facility] Comment on above: Performed By: #### L 501.2450, L500.4050, L100.0100 ####[facility] [address] [place], [address] RDW SD 52.4 fl High 35.1-43.9 [facility] Comment on above: Performed By: #### L 501.2450, L500.4050, L100.0100 ####[facility] [address] [place], [address] WBC (Bld) [#/Vol] 6.3 10*3/uL Normal 4.4-11.0 [facility] Comment on above: Performed By: #### L 501.2450, L500.4050, L100.0100 ####[facility] [address] [place], [address] Carbon dioxide, total [Moles /volume] in Central venous bloodOrdered By: Rena Franklin on 12-12-2024 CO2 [Moles/Vol] 19.6 mmol/L Low 21.0-32.0 [facility] Chloride assayOrdered By: Debbie Franklin on 12-12-2024 Chloride [Moles/Vol] 104 mmol/L 98-108 [facility] Metabolic Prof ilon 12-12-2024 Albumin [Mass/Vol] 4.2 g/dL Normal 3.4-4.8 [facility] Comment on above: Performed By: #### L 501.2450, L500.4050, L100.0100 ####[facility] [address] [place], [address] Albumin/Globulin [Mass ratio] 1.5 {ratio} Normal 0.9-2.4 [facility] Comment on above: Performed By: #### L 501.2450, L500.4050, L100.0100 ####[facility] [address] [place], [address] ALK PHOS 108 U/L Normal 40-129 [facility] Comment on above: Performed By: #### L 501.2450, L500.4050, L100.0100 ####[facility] [address] [place], [address] ALT [Catalytic activity/Vol] 15 U/L Normal <=46 [facility] Comment on above: Performed By: #### L 501.2450, L500.4050, L100.0100 ####[facility] [address] [place], [address] AST [Catalytic activity/Vol] 25 U/L Normal <=37 [facility] Comment on above: Performed By: #### L 501.2450, L500.4050, L100.0100 ####[facility] [address] [place], [address] Bilirubin [Mass/Vol] 0.83 mg/dL Normal 0.00-1.30 [facility] Comment on above: Performed By: #### L 501.2450, L500.4050, L100.0100 ####[facility] [address] [place], [address] BUN/CRE 14.4 RATIO Normal 10-20 [facility] Comment on above: Performed By: #### L 501.2450, L500.4050, L100.0100 ####[facility] [address] [place], [address] Calcium [Mass/Vol] 9.4 mg/dL Normal 7.6-11.0 [facility] Comment on above: Performed By: #### L 501.2450, L500.4050, L100.0100 ####[facility] [address] [place], [address] Chloride [Moles/Vol] 104 mmol/L Normal 98-108 [facility] Comment on above: Performed By: #### L 501.2450, L500.4050, L100.0100 ####[facility] [address] [place], [address] CO2 [Moles/Vol] 19.6 mmol/L Low 21.0-32.0 [facility] Comment on above: Performed By: #### L 501.2450, L500.4050, L100.0100 ####[facility] [address] [place], [address] Creatinine [Mass/Vol] 2.39 mg/dL High 0.70-1.[address] [facility] Comment on above: Performed By: #### L 501.2450, L500.4050, L100.0100 ####[facility] [address] [place], [address] GAP 17 High 5-15 [facility] Comment on above: Performed By: #### L 501.2450, L500.4050, L100.0100 ####[facility] [address] [place], [address] GFR/1.73 sq M.predicted among non-blacks MDRD (S/P/Bld) [Vol rate/Area] 26 mL/min/{1.73_m2} Low >60 [facility] Comment on above: Result Comment: mL/m in/1.73m2 CKD-EPI Creatinine Equation (2020) Performed By: #### L 501.2450, L500.4050, L100.0100 ####[facility] [address] [place], [address] Globulin (S) [Mass/Vol] 2.9 g/dL Normal 2.2-4.2 [facility] Comment on above: Performed By: #### L 501.2450, L500.4050, L100.0100 ####[facility] [address] [place], [address] Glucose [Mass/Vol] 144 mg/dL High 70-99 [facility] Comment on above: Performed By: #### L 501.2450, L500.4050, L100.0100 ####[facility] [address] [place], [address] Potassium [Moles/Vol] 3.9 mmol/L Normal 3.3-5.[address] [facility] Comment on above: Performed By: #### L 501.2450, L500.4050, L100.0100 ####[facility] [address] [place], [address] Sodium [Moles/Vol] 140 mmol/L Normal 133-145 [facility] Comment on above: Performed By: #### L 501.2450, L500.4050, L100.0100 ####[facility] [address] [place], [address] T PROT 7.1 g/dL Normal 5.9-8.4 [facility] Comment on above: Performed By: #### L 501.2450, L500.4050, L100.0100 ####[facility] [address] [place], [address] Urea nitrogen [Mass/Vol] 34 mg/dL High 4-19 [facility] Comment on above: Performed By: #### L 501.2450, L500.4050, L100.0100 ####[facility] [address] [place], [place], [address] Emergency Department Summary on 12-12-2024 Emergency Department Summary Normal [facility] Eosinophil percentageOrdered By: Rena Franklin on 12-12-2024 Eosinophils/100 WBC (Bld) 2.4 % 0-5 [facility] Erythrocyte distribution wid th ratioOrdered By: Rena Franklin on 12-12-2024 Erythrocyte distribution width (RBC) [Ratio] 16.2 % High 11.6-14.6 [facility] Erythrocyte distribution wid th standard deviationOrdered By: Rena Franklin on 12-12-2024 Erythrocyte distribution width (RBC) [Ratio] 52.4 fl High 35.1-43.9 [facility] Glomerular filtration rate ( GFR) estimation/1.73 sq m using serum, plasma, or whole bOrdered By: Rena Franklin on 12-12-2024 GFR/1.73 sq M.predicted among non-blacks MDRD (S/P/Bld) [Vol rate/Area] 26 mL/min/{1.73_m2} Low >60 [facility] Comment on above: mL/min/1.73m2 CKD-EP I Creatinine Equation (2020) Hematocrit Auto (Bld) [Volum e fraction]Ordered By: Rena Franklin on 12-12-2024 Hematocrit (Bld) [Volume fraction] 39.7 % Low 40-54 [facility] Hemoglobin measurementOrdere d By: Rena Franklin on 12-12-2024 Hemoglobin (Bld) [Mass/Vol] 12.9 g/dL Low 13.0-16.5 [facility] Immature granulocytes/100 WB C Auto (Bld)Ordered By: Rena Franklin on 12-12-2024 Immature granulocytes/100 WBC (Bld) 0.500 % 0.0-0.9 [facility] Comment on above: IG% - Immature Granu locytes (promyelocytes, myelocytes and metamyelocytes) > 1% indicates that a LEFT SHIFT is Present. Ketones Test strip Ql (U)Ord ered By: Rena Franklin on 12-12-2024 Ketones Ql (U) Negative Negative [facility] Laboratory - Chemistry and C hemistry - challengeOrdered By: Rena Franklin on 12-12-2024 AST [Catalytic activity/Vol] 25 U/L <38 [facility] Lipaseon 12-12-2024 Lipase [Catalytic activity/Vol] 36 U/L Normal 13-75 [facility] Comment on above: Result Comment: César cai note:LIPASE revised reference range effective 22.New Lipase methodology. Expected to produce lower valuesthan the previous assay method.NEW Reference Range: 13 - 75 U/L Performed By: #### L 501.2450, L500.4050, L100.0100 ####[facility] [address] [place], [address] Lipase measurementOrdered By : Rena Franklin on 12-12-2024 Lipase [Catalytic activity/Vol] 36 U/L 13-75 [facility] Comment on above: Please note:LIPASE r evised [...] MCH (RBC) [Entitic mass] 28.9 pg 27.0-32.0 [facility] Mean corpuscular hemoglobin concentration (MCHC) determinationOrdered By: Rena Franklin on 12-12-2024 MCHC (RBC) [Mass/Vol] 32.5 g/dL 32-[address] [facility] Mean platelet volume determi nationOrdered By: Rena Franklin on 12-12-2024 Platelet mean volume (Bld) [Entitic vol] 10.7 fL 6.2-12.0 [facility] Microscopic analysis of urin e for red blood cells (RBC)Ordered By: Rena Franklin on 12-12-2024 Microscopic analysis of urine for red blood cells (RBC) 0 SEEN /hpf 0-5 [facility] Monocyte percentageOrdered B y: Rena Franklin on 12-12-2024 Monocytes/100 WBC (Bld) 6.3 % 0-10 [facility] Mucus LM Ql (Urine sed)Order ed By: Rena Franklin on 12-12-2024 Mucus Ql (Urine sed) 0 SEEN /hpf [facility] Neutrophil percentageOrdered By: Rena Franklin on 12-12-2024 Neutrophils/100 WBC (Bld) 72.8 % High 47-70 [facility] Nitrite Test strip Ql (U)Ord ered By: Rena Franklin on 12-12-2024 Nitrite Ql (U) Negative Negative [facility] Nucleated red blood cell per centageOrdered By: Rena Franklin on 12-12-2024 Nucleated RBC/100 WBC (Bld) [Ratio] 0 % 0-5 [facility] Platelet countOrdered By: Debbie Franklin on 12-12-2024 Platelets (Bld) [#/Vol] 210 10*3/uL 150-450 [facility] Potassium measurement (mass/ volume)Ordered By: Rena Franklin on 12-12-2024 Potassium (Unsp spec) [Mass/Vol] 3.9 mmol/L 3.3-5.1 [facility] Protein Test strip Ql (U)Ord ered By: Rena Franklin on 12-12-2024 Protein Ql (U) 30 mg/dl High Negative [facility] RBC Auto (Bld) [#/Vol]Ordere d By: Rena Franklin on 12-12-2024 RBC (Bld) [#/Vol] 4.46 10*6/uL Low 4.6-6.2 [facility] Serum creatinine measurement (mass/volume)Ordered By: Rena Franklin on 12-12-2024 Creatinine [Mass/Vol] 2.39 mg/dL High 0.70-1.[address] [facility] Serum globulin measurementOr dered By: Rena Franklin on 12-12-2024 Globulin (S) [Mass/Vol] 2.9 g/dL 2.2-4.2 [facility] Serum glucose measurement (m ass/volume)Ordered By: Rena Franklin on 12-12-2024 Glucose [Mass/Vol] 144 mg/dL High 70-99 [facility] Serum or plasma alanine clay otransferase (ALT) measurementOrdered By: Rena Franklin on 12-12-2024 ALT [Catalytic activity/Vol] 15 U/L <47 [facility] Serum or plasma albumin geena urement (mass/volume)Ordered By: Rena Franklin on 12-12-2024 Albumin [Mass/Vol] 4.2 g/dL 3.4-4.8 [facility] Serum or plasma albumin/glob ulin mass ratioOrdered By: Rena Franklin on 12-12-2024 Albumin/Globulin [Mass ratio] 1.5 {ratio} 0.9-2.4 [facility] Serum or plasma alkaline camila sphatase measurementOrdered By: Rena Franklin on 12-12-2024 ALP [Catalytic activity/Vol] 108 U/L 40-129 [facility] Serum or plasma calcium geena urement (mass/volume)Ordered By: Rena Franklin on 12-12-2024 Calcium [Mass/Vol] 9.4 mg/dL 7.6-11.0 [facility] Serum or plasma urea nitroge n measurement (mass/volume)Ordered By: Rena Franklin on 12-12-2024 Urea nitrogen [Mass/Vol] 34 mg/dL High 4-19 [facility] Sodium levelOrdered By: Kash Franklin on 12-12-2024 Sodium [Moles/Vol] 140 mmol/L 133-145 [facility] Squamous epithelial cells de tection in urine sediment by light microscopyOrdered By: Rena Franklin on 12-12-2024 Epithelial cells.squamous LM Ql (Urine sed) 0 SEEN /hpf 0-5 [facility] Total proteinOrdered By: Erick Franklin on 12-12-2024 Protein [Mass/Vol] 7.1 g/dL 5.9-8.4 [facility] Urinalysis, Completeon 12-12 BACTERIA 0 SEEN Normal None Seen [facility] Comment on above: Order Comment: CLEAN CATCH Performed By: #### L 400.0001 ####[facility] [address] [place], [address] EPI,SQUAMOUS 0 SEEN Normal 0-5 [facility] Comment on above: Order Comment: CLEAN CATCH Performed By: #### L 400.0001 ####[facility] [address] [place], [address] Mucus Ql (Urine sed) 0 SEEN Normal [facility] Comment on above: Order Comment: CLEAN CATCH Performed By: #### L 400.0001 ####[facility] [address] [place], [address] RBC 0 SEEN Normal 0-5 [facility] Comment on above: Order Comment: CLEAN CATCH Performed By: #### L 400.0001 ####[facility] [address] [place], [address] WBC 0 SEEN Normal 0-5 [facility] Comment on above: Order Comment: CLEAN CATCH Performed By: #### L 400.0001 ####[facility] [address] [place], [address] Urine clarityOrdered By: Erick Franklin on 12-12-2024 Clarity (U) Clear Clear [facility] Urine color determinationOrd ered By: Rena Franklin on 12-12-2024 Color (U) Yellow Yellow [facility] Urine glucose detectionOrder ed By: Rena Franklin on 12-12-2024 Glucose Ql (U) Normal mg/dl Normal [facility] Urine leukocyte esterase det ection by dipstickOrdered By: Rena Franklin on 12-12-2024 Leukocyte esterase Test strip Ql (U) Negative Negative [facility] Urine pHOrdered By: Ranjit Franklin on 12-12-2024 pH (U) 6.0 [pH] 5.0 - 8.0 [facility] Urine sediment bacteria coun t by microscopy (number/high power field)Ordered By: Rena Franklin on 12-12-2024 Bacteria LM.HPF (Urine sed) [#/Area] 0 /[HPF] None Seen [facility] Urine specific gravity measu rementOrdered By: Rena Franklin on 12-12-2024 Specific gravity (U) [Rel density] 1.010 1.002-1.030 [facility] Urine urobilinogen measureme ntOrdered By: Rena Franklin on 12-12-2024 Urobilinogen Ql (U) Normal mg/dl Normal [facility] White blood cell (WBC) count Ordered By: Rena Franklin on 12-12-2024 WBC (Bld) [#/Vol] 6.3 10*3/uL 4.4-11.0 [facility] White blood cell countOrdere d By: Rena Franklin on 12-12-2024 White blood cell count 0 SEEN /hpf 0-5 [facility] Albumin DL <= 20 mg/L (U) [M ass/Vol]Ordered By: Rigoberto Durand on 09-27-2024 Urine Random Microalbumin < 12.0 mg/L NO RANGE EST. [facility] Anion gap in Serum or Plasma Ordered By: Rigoberto Durand on 09-27-2024 Anion gap [Moles/Vol] 17 mmol/L High 12-[address] [facility] BUN/creatinine ratioOrdered By: Rigoberto Durand on 09-27-2024 Urea nitrogen/Creatinine [Mass ratio] 14.3 mg/mg 05-09 [facility] Basic Metabolic Profile (BMP )on 09-27-2024 BUN/CRE 14.3 RATIO Normal 05-09 [facility] Comment on above: Performed By: #### L 501.9985, L501.9910, L500.2500, L502.0250, L500.4100 ####[facility] [address] [place], [place], [address] Calcium [Mass/Vol] 8.9 mg/dL Normal 7.6-11.0 [facility] Comment on above: Performed By: #### L 501.9985, L501.9910, L500.2500, L502.0250, L500.4100 ####[facility] [address] [place], [address] Chloride [Moles/Vol] 103 mmol/L Normal 98-108 [facility] Comment on above: Performed By: #### L 501.9985, L501.9910, L500.2500, L502.0250, L500.4100 ####[facility] [address] [place], [address] CO2 [Moles/Vol] 19.8 mmol/L Low 21.0-32.0 [facility] Comment on above: Performed By: #### L 501.9985, L501.9910, L500.2500, L502.0250, L500.4100 ####[facility] [address] [place], [address] Creatinine [Mass/Vol] 2.36 mg/dL High 0.70-1.[address] [facility] Comment on above: Performed By: #### L 501.9985, L501.9910, L500.2500, L502.0250, L500.4100 ####[facility] [address] [place], [address] GAP 17 High 5-15 [facility] Comment on above: Performed By: #### L 501.9985, L501.9910, L500.2500, L502.0250, L500.4100 ####[facility] [address] [place], [address] GFR/1.73 sq M.predicted among non-blacks MDRD (S/P/Bld) [Vol rate/Area] 26 mL/min/{1.73_m2} Low >60 [facility] Comment on above: Result Comment: mL/m in/1.73m2 CKD-EPI Creatinine Equation (2020) Performed By: #### L 501.9985, L501.9910, L500.2500, L502.0250, L500.4100 ####[facility] [address] [place], [address] Glucose [Mass/Vol] 142 mg/dL High 70-99 [facility] Comment on above: Performed By: #### L 501.9985, L501.9910, L500.2500, L502.0250, L500.4100 ####[facility] [address] [place], [address] Potassium [Moles/Vol] 4.0 mmol/L Normal 3.3-5.[address] [facility] Comment on above: Performed By: #### L 501.9985, L501.9910, L500.2500, L502.0250, L500.4100 ####[facility] [address] [place], [address] Sodium [Moles/Vol] 140 mmol/L Normal 133-145 [facility] Comment on above: Performed By: #### L 501.9985, L501.9910, L500.2500, L502.0250, L500.4100 ####[facility] [address] [place], [address] Urea nitrogen [Mass/Vol] 34 mg/dL High 4-19 [facility] Comment on above: Performed By: #### L 501.9985, L501.9910, L500.2500, L502.0250, L500.4100 ####[facility] [address] [place], [address] Calculated very low density lipoprotein (VLDL) cholesterol measurementOrdered By: Rigoberto Durand on 09-27-2024 Calculated very low density lipoprotein (VLDL) cholesterol measurement 36 mg/dL 5-40 [facility] VLDL Cholesterol 36 mg/dL -40 [facility] Carbon dioxide, total [Moles /volume] in Central venous bloodOrdered By: Rigoberto Durand on 09-27-2024 CO2 [Moles/Vol] 19.8 mmol/L Low 21.0-32.0 [facility] Chloride assayOrdered By: Dasia Durand on 09-27-2024 Chloride [Moles/Vol] 103 mmol/L 98-108 [facility] Creatinine Unsp time (U) [Ma ss/Vol]Ordered By: Rigoberto Durand on 09-27-2024 Creatinine (U) [Mass/Vol] 42.10 mg/dL 39-259 [facility] GFR/1.73 sq M.predicted den[place] g non-blacks MDRD (S/P/Bld) [Vol rate/Area]Ordered By: Rigoberto Durand on 09-27-2024 Estimated GFR (MDRD) Non-Af Amer 26 Low >60 [facility] Comment on above: mL/min/1.73m2 CKD-EP I Creatinine Equation (2020) Glomerular filtration rate ( GFR) estimation/1.73 sq m using serum, plasma, or whole bOrdered By: Rigoberto Durand on 09-27-2024 GFR/1.73 sq M.predicted among non-blacks MDRD (S/P/Bld) [Vol rate/Area] 26 mL/min/{1.73_m2} Low >60 [facility] Comment on above: mL/min/1.73m2 CKD-EP I Creatinine Equation (2020) Hemoglobin A1con 09-27-2024 HbA1c (Bld) [Mass fraction] 6.5 % Normal <=5.6 [facility] Comment on above: Performed By: #### L 501.9985, L501.9910, L500.2500, L502.0250, L500.4100 ####[facility] [address] [place], [place], [id number] Hemoglobin A1c percentageOrd ered By: Rigoberto Durand on 09-27-2024 HbA1c (Bld) [Mass fraction] 6.5 % >5.7 [facility] LDL calc ser/plasOrdered By: Rigoberto Durand on 09-27-2024 Cholesterol in LDL [Mass/Vol] 82 mg/dL [facility] Comment on above: Egzjdjfhyu=469-924 m g/dL & Higher Ojvx=719 mg/dL or greater LDL Cholesterol, Calculated 82 mg/dL [facility] Comment on above: Lzlkdemopj=127-566 m g/dL & Higher Ltkw=195 mg/dL or greater Lipid Profileon 09-27-2024 CHOL:HDL 4.51 Normal [facility] Comment on above: Performed By: #### L 501.9985, L501.9910, L500.2500, L502.0250, L500.4100 ####[facility] [address] [place], [address] Cholesterol [Mass/Vol] 152 mg/dL Normal <=200 [facility] Comment on above: Result Comment: Chol esterol level, Desirable <200 mg/dLBorderline high cholesterol 200-239 mg/dLHigh cholesterol >=240 mg/dLRecommendations of the NCEP Adult Treatment Panel for thefollowing risk-cutoff thresholds for the [place] Americanpulation. Performed By: #### L 501.9985, L501.9910, L500.2500, L502.0250, L500.4100 ####[facility] [address] [place], [address] Cholesterol in HDL [Mass/Vol] 34 mg/dL Low [facility] Comment on above: Result Comment: Buffy onal Cholesterol Education Program (NCEP) guidelines:<40 mg/dL: Low HDL-cholesterol (major risk factor for CHD)>= 60 mg/dL: High HDL-cholesterol (negative risk factor forCHD)HDL-cholesterol is affected by a number of factors, e.g.smoking, exercise, hormones, sex and age. Performed By: #### L 501.9985, L501.9910, L500.2500, L502.0250, L500.4100 ####[facility] [address] [place], [address] Cholesterol in LDL [Mass/Vol] 82 mg/dL Normal [facility] Comment on above: Result Comment: Bord ndveft=956-858 mg/dL Higher Uyaa=887 mg/dL or greater Performed By: #### L 501.9985, L501.9910, L500.2500, L502.0250, L500.4100 ####[facility] [address] [place], [address] Cholesterol in VLDL [Mass/Vol] 36 mg/dL Normal 5-40 [facility] Comment on above: Performed By: #### L 501.9985, L501.9910, L500.2500, L502.0250, L500.4100 ####[facility] [address] [place], [address] Triglyceride [Mass/Vol] 182 mg/dL Normal [facility] Comment on above: Result Comment: The drugs N-Acetylcysteine and Metamizole may falselydepress this assay.Normal range: <150 mg/dLBorderline High: 150-199 mg/dLHigh: 200-499 mg/dLVery High: >500 mg/dL Performed By: #### L 501.9985, L501.9910, L500.2500, L502.0250, L500.4100 ####[facility] [address] [place], [address] Microalb:Creat Ratio,Random URon 09-27-2024 Creatinine [Mass/Vol] 42.10 mg/dL Normal 39-259 [facility] Comment on above: Performed By: #### L 501.9985, L501.9910, L500.2500, L502.0250, L500.4100 ####[facility] [address] [place], [address] MALB:CREAT UNABLE TO CALCULATE Normal [facility] Comment on above: Performed By: #### L 501.9985, L501.9910, L500.2500, L502.0250, L500.4100 ####[facility] [address] [place], [address] MICROALBUMIN,UR < 12.0 Normal NO RANGE EST. [facility] Comment on above: Performed By: #### L 501.9985, L501.9910, L500.2500, L502.0250, L500.4100 ####[facility] [address] [place], [place], [id number] Microalbumin/creat ratio urO rdered By: Rigoberto Durand on 09-27-2024 Urine Microalbumin/Creatinine Ratio UNABLE TO CALCULATE mg/g CRE [facility] Urine microalbumin/creatinine ratio measurement UNABLE TO CALCULATE mg/g CRE [facility] PSA, total screeningOrdered By: Rigoberto Durand on 09-27-2024 Prostate Specific Antigen Screen 0.68 ng/mL 0.02-4.00 [facility] Comment on above: This test was perfor [...] 09-27-2024 PSA,TOT SCREEN 0.68 ng/mL Normal 0.02-4.00 [facility] Comment on above: Result Comment: This test was performed using the [employer] tPSAmethod. Measured values of a patient??sample can varydepending on the testing procedure used. PSA valuesdetermined on patient samples by different testingprocedures cannot be used interchangeably. If there is achange in PSA assays while monitoring therapy, sequentialtesting should be performed to confirm baseline values. Performed By: #### L 501.9985, L501.9910, L500.2500, L502.0250, L500.4100 ####[facility] [address] [place], [place], [id number] Potassium (Unsp spec) [Mass/ Vol]Ordered By: Rigoberto Durand on 09-27-2024 Potassium [Moles/Vol] 4.0 mmol/L 3.3-5.[address] [facility] Potassium measurement (mass/ volume)Ordered By: Rigoberto Durand on 09-27-2024 Potassium (Unsp spec) [Mass/Vol] 4.0 mmol/L 3.3-5.1 [facility] Random urine creatinine geena urement (mass/volume)Ordered By: Rigoberto Durand on 09-27-2024 Creatinine Unsp time (U) [Mass/Vol] 42.10 mg/dL 39-259 [facility] Screening total cholesterol/ high density lipoprotein (HDL) cholesterol ratioOrdered By: Rigoberto Durand on 09-27-2024 Cholesterol.total/Choles terol in HDL [Mass ratio] 4.51 {ratio} [facility] Serum creatinine measurement (mass/volume)Ordered By: Rigoberto Durand on 09-27-2024 Creatinine [Mass/Vol] 2.36 mg/dL High 0.70-1.[address] [facility] Serum glucose measurement (m ass/volume)Ordered By: Rigoberto Durand on 09-27-2024 Glucose [Mass/Vol] 142 mg/dL High 70-99 [facility] Serum or plasma calcium geena urement (mass/volume)Ordered By: Rigoberto Durand on 09-27-2024 Calcium [Mass/Vol] 8.9 mg/dL 7.6-11.0 [facility] Serum or plasma cholesterol in HDL measurement (mass/volume)Ordered By: Rigoberto Durand on 09-27-2024 Cholesterol in HDL [Mass/Vol] 34 mg/dL Low >40 [facility] Comment on above: National Cholesterol Education Program (NCEP) guidelines:<40 mg/dL: Low HDL-cholesterol (major risk factor for CHD)>= 60 mg/dL: High HDL-cholesterol (negative risk factor for CHD)HDL-cholesterol is affected by a number of factors, e.g. smoking, exercise, hormones, sex and age. Serum or plasma cholesterol measurement (mass/volume)Ordered By: Rigoberto Durand on 09-27-2024 Cholesterol [Mass/Vol] 152 mg/dL <201 [facility] Comment on above: Cholesterol level, D esirable <200 mg/dLBorderline high cholesterol 200-239 mg/dLHigh cholesterol >=240 mg/dLRecommendations of the NCEP Adult Treatment Panel for the following risk-cutoff thresholds for the [place] Vincentian population. Serum or plasma urea nitroge n measurement (mass/volume)Ordered By: Rigoberto Durand on 09-27-2024 Urea nitrogen [Mass/Vol] 34 mg/dL High 4-19 [facility] Sodium levelOrdered By: Rigoberto Durand on 09-27-2024 Sodium [Moles/Vol] 140 mmol/L 133-145 [facility] Triglycerides measurementOrd ered By: Rigoberto Durand on 09-27-2024 Triglyceride [Mass/Vol] 182 mg/dL <199 [facility] Comment on above: The drugs N-Acetylcy steine and Metamizole may falsely depress this assay. Normal range: <150 mg/dLBorderline High: 150-199 mg/dLHigh: 200-499 mg/dLVery High: >500 mg/dL Urine albumin measurement wi detection limit of 20 mg/L or less (mass/volume)Ordered By: Rigoberto Durand on 09-27-2024 Albumin DL <= 20 mg/L (U) [Mass/Vol] < 12.0 mg/L NO RANGE EST. [facility] Progress Noteon 09-22-[address] [facility] Telehealth Cardiology Note DATE [...] HOSPITAL) Presence of cardiac resynchronization therapy defibrillator (ORDER TRACER-D) 01/17/2022 PUD (peptic ulcer disease) Pulmonary embolism [...] tablet, Rfl: 1 (more content not included)... [facility] 36on 07-28-2024 36 ----- Message from Gibson Lamb sent at 07/28/2024 8:57 AM EST ----- Regarding: RE: Clinic check Called and spoke with the patient regarding both appointments (dates/time) for 09-22-2024 at the [facility]. ----- Message ----- From: Di Hernández RN [...] To: Di Hernández RN Subject: Clinic check [facility]. Mr. Nascimento called this morning to R/S his in office device check appointment due to the weather, which was scheduled with you this morning. He was also seeing Dr. Roth. He R/S Brenda's appointment for early September 2024. Do you want him to just send a remote? And or I can R/S him with you at the [place] office on 08-04-2024 @ 10:30. [facility] 36on 07-20-2024 36 JAYMIE ErnieLeo Dexter [employer] 01/09/24, labs 01/09/24. Rx pended. [place] [address] 06-16-2024 36 Last OV with ErnieLeo Dexter on 01/09/[address] 06-15-[address] [facility] and wanted to see if he could fill his cialis through our pharmacy, He does not have refills at [facility] pharmacy for this and It the last prescription that was sent to [facility] has no refills on it. Patient requested that we ask the cardio provider that prescribed it last time for refills. If appropriate please send prescription to [facility] pharmacy, Rx pended for review, Thank you! [facility] 36 Last OV with Everton Renteria on 01/09/24 BMP 01/09/[address] [facility] Absolute lymphocyte countOrd ered By: Shaun Taveras on 11-27-2023 Lymphocytes Auto (Unsp spec) [#/Vol] 0.54 10*3/uL 0.83-4.51 [facility] Automated lymphocyte count a s percentage of total leukocytesOrdered By: Shaun Taveras on 11-27-2023 Lymphocytes/100 WBC Auto (Unsp spec) 2.1 % 19-41 [facility] Basophil percentageOrdered B y: Shaun Taveras on 11-27-2023 Lactate [Moles/Vol] 1.2 mmol/L 0.4-2.0 [facility] Basophil percentage 0 SEEN /hpf 0-5 [facility] Basophils/100 WBC (Bld) 0.3 % 0-1 [facility] Chloride [Moles/Vol] 95 mmol/L 98-107 [facility] Eosinophils/100 WBC (Bld) 0.4 % 0-5 [facility] Glucose [Mass/Vol] 214 mg/dL 74-106 [facility] Comment on above: Glucose result great er than or equal to 200 mg/dLsuggests DIABETES MELLITUS per A.D.A. criteria. Hemoglobin (Bld) [Mass/Vol] 11.1 g/dL 13.0-16.5 [facility] Monocytes/100 WBC (Bld) 4.0 % 0-10 [facility] Neutrophils (Bld) [#/Vol] 23.2 10*3/uL 2.0-7.7 [facility] Neutrophils/100 WBC (Bld) 90.4 % 47-70 [facility] Potassium [Moles/Vol] 3.2 mmol/L 3.5-5.[address] [facility] Sodium [Moles/Vol] 132 mmol/L 136-145 [facility] WBC (Bld) [#/Vol] 25.7 10*3/uL 4.4-11.0 [facility] Bilirubin Test strip Ql (U)O rdered By: Shaun Taveras on 11-27-2023 Bilirubin Ql (U) Negative Negative [facility] Blood manual differential co mment interpretation (narrative result)Ordered By: Shaun Taveras on 11-27-2023 Manual differential comment Raymond (Bld) [Interp] SCANNED [facility] Determination of erythrocyte mean corpuscular volume (MCV)Ordered By: Shaun Taveras on 11-27-2023 MCV (RBC) [Entitic vol] 90.6 fL 80-94 [facility] Erythrocyte distribution wid th ratioOrdered By: Shaun Taveras on 11-27-2023 Erythrocyte distribution width (RBC) [Ratio] 13.7 % 11.6-14.6 [facility] Erythrocyte distribution wid th standard deviationOrdered By: Shaun Taveras on 11-27-2023 Erythrocyte distribution width (RBC) [Entitic vol] 45.2 fL 35.1-43.9 [facility] Hematocrit Auto (Bld) [Volum e fraction]Ordered By: Shaun Taveras on 11-27-2023 Hematocrit (Bld) [Volume fraction] 34.6 % 40-54 [facility] Immature granulocytes/100 WB C Auto (Bld)Ordered By: Shaun Taveras on 11-27-2023 Immature granulocytes/100 WBC (Bld) 2.800 % 0.0-0.9 [facility] Comment on above: IG% - Immature Granu locytes (promyelocytes, myelocytes and metamyelocytes) > 1% indicates that a LEFT SHIFT is Present. Ketones Test strip Ql (U)Ord ered By: Shaun Taveras on 11-27-2023 Ketones Ql (U) Negative Negative [facility] Laboratory - Chemistry and C hemistry - challengeOrdered By: Shaun Taveras on 11-27-2023 CK [Catalytic activity/Vol] 2351 U/L 39-308 [facility] CO2 [Moles/Vol] 23.0 mmol/L 21.0-32.0 [facility] Magnesium [Mass/Vol] 1.8 mg/dL 1.6-2.6 [facility] Natriuretic peptide B (Bld) [Mass/Vol] 610.2 pg/mL 0-100 [facility] Urea nitrogen/Creatinine [Mass ratio] 17.9 mg/mg 10-20 [facility] - Hematology and Cell countsOrdered By: Shaun Taveras on 11-27-2023 MCH (RBC) [Entitic mass] 29.1 pg 27.0-32.0 [facility] MCHC (RBC) [Mass/Vol] 32.1 g/dL 32-[address] [facility] Nucleated RBC/100 WBC (Bld) [Ratio] 0 % 0-5 [facility] Platelet mean volume (Bld) [Entitic vol] 11.3 fL 6.2-12.0 [facility] Platelets (Bld) [#/Vol] 226 10*3/uL 150-450 [facility] - Microbiology an d Antimicrobial susceptibilityOrdered By: Shaun Taveras on 11-27-2023 SARS-CoV-2 (COVID-19) RNA SUDEEP+probe Ql (Unsp spec) [facility] Mucus LM Ql (Urine sed)Order ed By: Shaun Taveras on 11-27-2023 Mucus Ql (Urine sed) 0 SEEN /hpf [facility] Nitrite Test strip Ql (U)Ord ered By: Shaun Taveras on 11-27-2023 Nitrite Ql (U) Negative Negative [facility] No Panel InformationOrdered By: Shaun Taveras on 11-27-2023 Urine RBC 0 SEEN /hpf 0-5 [facility] Estimated Creatinine Clearance Calc 15.27 ml/min [facility] Estimated GFR (MDRD) Amer 19 mL/min >60 [facility] Comment on above: GFR Calc Estimated GFR (MDRD) Non-Af Amer 16 mL/min >60 [facility] Comment on above: Non- GFR Calc Protein Test strip Ql (U)Ord ered By: Shaun Taveras on 11-27-2023 Protein Ql (U) Negative Negative [facility] RBC Auto (Bld) [#/Vol]Ordere d By: Shaun Taveras on 11-27-2023 RBC (Bld) [#/Vol] 3.82 10*6/uL 4.6-6.2 [facility] Serum or plasma calcium geena urement (mass/volume)Ordered By: Shaun Taveras on 11-27-2023 Calcium [Mass/Vol] 8.7 mg/dL 8.5-10.1 [facility] Serum or plasma creatinine m easurement (mass/volume)Ordered By: Shaun Taveras on 11-27-2023 Creatinine [Mass/Vol] 3.86 mg/dL 0.70-1.[address] [facility] Comment on above: The validity of the calculated GFR & GFRAA in patients over 70 years has not been determined. Clinical correlation is essential. Serum or plasma thyroid stim ulating hormone (TSH) measurement (units/volume)Ordered By: Shaun Taveras on 11-27-2023 TSH Qn 1.10 uIU/mL 0.358-3.74 [facility] Serum or plasma urea nitroge n measurement (mass/volume)Ordered By: Shaun Taveras on 11-27-2023 Urea nitrogen [Mass/Vol] 69 mg/dL 7-18 [facility] Squamous epithelial cells de tection in urine sediment by light microscopyOrdered By: Shaun Taveras on 11-27-2023 Epithelial cells.squamous LM Ql (Urine sed) 0 SEEN /hpf 0-5 [facility] Thin prep Papanicolaou smear with manual screeningOrdered By: Shaun Taveras on 11-27-2023 Thin prep Papanicolaou smear with manual screening 14 5-15 [facility] Urine blood detectionOrdered By: Shaun Taveras on 11-27-2023 RBC Ql (U) Negative Negative [facility] Urine clarityOrdered By: Doug Taveras on 11-27-2023 Clarity (U) Clear Clear [facility] Urine color determinationOrd ered By: Shaun Taveras on 11-27-2023 Color (U) Yellow Yellow [facility] Urine glucose detectionOrder ed By: Shaun Taveras on 11-27-2023 Glucose Ql (U) Normal mg/dl Normal [facility] Urine leukocyte esterase det ection by dipstickOrdered By: Shaun Taveras on 11-27-2023 Leukocyte esterase Test strip Ql (U) Negative Negative [facility] Urine pHOrdered By: Shaun grgeg on 11-27-2023 pH (U) 5.0 [pH] 5.0 - 8.0 [facility] Urine sediment bacteria coun t by microscopy (number/high power field)Ordered By: Shaun Taveras on 11-27-2023 Bacteria LM.HPF (Urine sed) [#/Area] 0 /[HPF] None Seen [facility] Urine specific gravity measu rementOrdered By: Shaun Taveras on 11-27-2023 Specific gravity (U) [Rel density] 1.015 1.002-1.030 [facility] Urine urobilinogen measureme ntOrdered By: Shaun Taveras on 11-27-2023 Urobilinogen Ql (U) Normal mg/dl Normal [facility] Basophil percentageOrdered B y: Rigoberto Durand on 08-29-2023 Chloride [Moles/Vol] 100 mmol/L 98-107 [facility] Glucose [Mass/Vol] 185 mg/dL 74-106 [facility] Comment on above: Fasting Glucose resu lt greater than or equal to 126 mg/dL suggests DIABETES MELLITUS per A.D.A. criteria. Potassium [Moles/Vol] 3.6 mmol/L 3.5-5.[address] [facility] Sodium [Moles/Vol] 136 mmol/L 136-145 [facility] Laboratory - Chemistry and C hemistry - challengeOrdered By: Rigoberto Durand on 08-29-2023 CO2 [Moles/Vol] 30.0 mmol/L 21.0-32.0 [facility] Urea nitrogen/Creatinine [Mass ratio] 16.7 mg/mg 10-20 [facility] No Panel InformationOrdered By: Rigoberto Durand on 08-29-2023 Estimated GFR (MDRD) Amer 36 mL/min >60 [facility] Comment on above: GFR Calc Estimated GFR (MDRD) Non-Af Amer 29 mL/min >60 [facility] Comment on above: Non- GFR Calc Free Triiodothyronine (T3) pg/dL 1.8 pg/mL 2.18-3.98 [facility] Serum or plasma calcium geena urement (mass/volume)Ordered By: Rigoberto Durand on 08-29-2023 Calcium [Mass/Vol] 9.1 mg/dL 8.5-10.1 [facility] Serum or plasma creatinine m easurement (mass/volume)Ordered By: Rigoberto Durand on 08-29-2023 Creatinine [Mass/Vol] 2.27 mg/dL 0.70-1.[address] [facility] Comment on above: The validity of the calculated GFR & GFRAA in patients over 70 years has not been determined. Clinical correlation is essential. Serum or plasma thyroid stim ulating hormone (TSH) measurement (units/volume)Ordered By: Rigoberto Durand on 08-29-2023 TSH Qn 2.06 uIU/mL 0.358-3.74 [facility] Serum or plasma urea nitroge n measurement (mass/volume)Ordered By: Rigoberto Durand on 08-29-2023 Urea nitrogen [Mass/Vol] 38 mg/dL 7-18 [facility] Thin prep Papanicolaou smear with manual screeningOrdered By: Rigoberto Durand on 08-29-2023 Thin prep Papanicolaou smear with manual screening 6 5-15 [facility] Thin prep Papanicolaou smear with manual screening 1.12 ng/dL 0.76-1.46 [facility] Basophil percentageOrdered B y: Rigoberto Durand on 06-02-2023 Bilirubin [Mass/Vol] 0.70 mg/dL 0.20-1.00 [facility] Comment on above: For patients on eltr ombopag therapy, use of Dimension [place] TBIL is not recommended. Chloride [Moles/Vol] 101 mmol/L 98-107 [facility] Cholesterol [Mass/Vol] 181 mg/dL <200 [facility] Comment on above: <200 mg/dL Desirable 200-240 mg/dL Borderline >240 mg/dL High Risk Glucose [Mass/Vol] 162 mg/dL 74-106 [facility] Comment on above: Fasting Glucose resu lt greater than or equal to 126 mg/dL suggests DIABETES MELLITUS per A.D.A. criteria. Potassium [Moles/Vol] 3.8 mmol/L 3.5-5.[address] [facility] Protein [Mass/Vol] 7.3 g/dL 6.4-8.2 [facility] Sodium [Moles/Vol] 138 mmol/L 136-145 [facility] Triglyceride [Mass/Vol] 265 mg/dL <199 [facility] Comment on above: The drugs N-Acetylcy steine and Metamizole may falsely depress this assay.Serum Triglycerides Reference Interval Normal <150 mg/dL Borderline high 150 - 199 mg/dL High 200 - 499 mg/dL Very High > or = 500 mg/dL Laboratory - Chemistry and C hemistry - challengeOrdered By: Rigoberto Durand on 06-02-2023 ALP [Catalytic activity/Vol] 136 U/L 45-117 [facility] ALT [Catalytic activity/Vol] 30 U/L 16-61 [facility] CO2 [Moles/Vol] 27.0 mmol/L 21.0-32.0 [facility] Globulin (S) [Mass/Vol] 3.5 g/dL 2.2-4.2 [facility] Urea nitrogen/Creatinine [Mass ratio] 19.8 mg/mg 10-20 [facility] No Panel InformationOrdered By: Rigoberto Durand on 06-02-2023 Estimated GFR (MDRD) Amer 31 mL/min >60 [facility] Comment on above: GFR Calc Estimated GFR (MDRD) Non-Af Amer 26 mL/min >60 [facility] Comment on above: Non- GFR Calc Prostate Specific Antigen Screen 0.50 ng/mL 0.00-4.00 [facility] Comment on above: This test was perfor med using the TPSA assay method for the[employer] chemistry system. Values obtained with differentassay methods cannot be used interchangably.When changing PSA assays in the course of monitoring apatient, additional sequential testing should be carriedout to confirm baseline values. Serum or plasma albumin geena urement (mass/volume)Ordered By: Rigoberto Durand on 06-02-2023 Albumin [Mass/Vol] 3.8 g/dL 3.2-5.0 [facility] Serum or plasma albumin/glob ulin mass ratioOrdered By: Rigoberto Durand on 06-02-2023 Albumin/Globulin [Mass ratio] 1.1 {ratio} 0.9-2.4 [facility] Serum or plasma calcium geena urement (mass/volume)Ordered By: Rigoberto Durand on 06-02-2023 Calcium [Mass/Vol] 8.3 mg/dL 8.5-10.1 [facility] Serum or plasma cholesterol in HDL measurement (mass/volume)Ordered By: Rigoberto Durand on 06-02-2023 Cholesterol in HDL [Mass/Vol] 37 mg/dL >40 [facility] Comment on above: The drugs N-Acetylcy steine and Metamizole may falsely depress this assay. Reference Range HDL <40 mg/dL Low HDL Cholesterol HDL >or= 60 mg/dL High HDL Cholesterol Serum or plasma cholesterol in VLDL measurement (mass/volume)Ordered By: Rigoberto Durand on 06-02-2023 Cholesterol in VLDL [Mass/Vol] 53 mg/dL 5-40 [facility] Serum or plasma creatinine m easurement (mass/volume)Ordered By: Rigoberto Durand on 06-02-2023 Creatinine [Mass/Vol] 2.53 mg/dL 0.70-1.[address] [facility] Comment on above: The validity of the calculated GFR & GFRAA in patients over 70 years has not been determined. Clinical correlation is essential. Serum or plasma low density lipoprotein (LDL) cholesterol measurement (mass/volume)Ordered By: Rigoberto Durand on 06-02-2023 Cholesterol in LDL [Mass/Vol] 91 mg/dL 0-130 [facility] Serum or plasma urea nitroge n measurement (mass/volume)Ordered By: Rigoberto Durand on 06-02-2023 Urea nitrogen [Mass/Vol] 50 mg/dL 7-18 [facility] Thin prep Papanicolaou smear with manual screeningOrdered By: Rigoberto Durand on 06-02-2023 Thin prep Papanicolaou smear with manual screening 17 U/L 15-37 [facility] Thin prep Papanicolaou smear with manual screening 10 5-15 [facility] Basophil percentageOrdered B y: Rigoberto Durand on 03-04-2023 Chloride [Moles/Vol] 101 mmol/L 98-107 [facility] Cholesterol [Mass/Vol] 287 mg/dL <200 [facility] Comment on above: <200 mg/dL Desirable 200-240 mg/dL Borderline >240 mg/dL High Risk Glucose [Mass/Vol] 173 mg/dL 74-106 [facility] Comment on above: Fasting Glucose resu lt greater than or equal to 126 mg/dL suggests DIABETES MELLITUS per A.D.A. criteria. Potassium [Moles/Vol] 3.6 mmol/L 3.5-5.[address] [facility] Sodium [Moles/Vol] 137 mmol/L 136-145 [facility] Triglyceride [Mass/Vol] 576 mg/dL <[address] [...] on 03-04-2023 CO2 [Moles/Vol] 29.0 mmol/L 21.0-32.0 [facility] Urea nitrogen/Creatinine [Mass ratio] 14.5 mg/mg 10-20 [facility] No Panel InformationOrdered By: Rigoberto Durand on 03-04-2023 Estimated GFR (MDRD) Amer 33 mL/min >60 [facility] Comment on above: GFR Calc Estimated GFR (MDRD) Non-Af Amer 27 mL/min >60 [facility] Comment on above: Non- GFR Calc Serum or plasma calcium geena urement (mass/volume)Ordered By: Rigoberto Durand on 03-04-2023 Calcium [Mass/Vol] 8.8 mg/dL 8.5-10.1 [facility] Serum or plasma cholesterol in HDL measurement (mass/volume)Ordered By: Rigoberto Durand on 03-04-2023 Cholesterol in HDL [Mass/Vol] 27 mg/dL >40 [facility] Comment on above: The drugs N-Acetylcy steine and Metamizole may falsely depress this assay. Reference Range HDL <40 mg/dL Low HDL Cholesterol HDL >or= 60 mg/dL High HDL Cholesterol Serum or plasma cholesterol in VLDL measurement (mass/volume)Ordered By: Rigoberto Durand on 03-04-2023 Cholesterol in VLDL [Mass/Vol] [facility] Comment on above: Test not performed Serum or plasma creatinine m easurement (mass/volume)Ordered By: Rigoberto Durand on 03-04-2023 Creatinine [Mass/Vol] 2.41 mg/dL 0.70-1.[address] [facility] Comment on above: The validity of the calculated GFR & GFRAA in patients over 70 years has not been determined. Clinical correlation is essential. Serum or plasma low density lipoprotein (LDL) cholesterol measurement (mass/volume)Ordered By: Rigoberto Durand on 03-04-2023 Cholesterol in LDL [Mass/Vol] [facility] Comment on above: Test not performed Serum or plasma urea nitroge n measurement (mass/volume)Ordered By: Rigoberto Durand on 03-04-2023 Urea nitrogen [Mass/Vol] 35 mg/dL 02-04 [facility] Thin prep Papanicolaou smear with manual screeningOrdered By: Rigoberot Durand on 03-04-2023 Thin prep Papanicolaou smear with manual screening 7 - [facility] Basophil percentageOrdered B y: Dr. Durand on 08-26-2022 Chloride [Moles/Vol] 99 mmol/L 98-107 [facility] Cholesterol [Mass/Vol] 143 mg/dL <200 [facility] Comment on above: <200 mg/dL Desirable 200-240 mg/dL Borderline >240 mg/dL High Risk Glucose [Mass/Vol] 156 mg/dL 74-106 [facility] Comment on above: Fasting Glucose resu lt greater than or equal to 126 mg/dL suggests DIABETES MELLITUS per A.D.A. criteria. Potassium [Moles/Vol] 3.7 mmol/L 3.5-5.[address] [facility] Sodium [Moles/Vol] 138 mmol/L 136-145 [facility] Triglyceride [Mass/Vol] 370 mg/dL <[address] [...] on 08-26-2022 CO2 [Moles/Vol] 28.0 mmol/L 21.0-32.0 [facility] Free T4 [Mass/Vol] 0.97 ng/dL 0.76-1.46 [facility] Urea nitrogen/Creatinine [Mass ratio] 18.5 mg/mg 10-20 [facility] No Panel InformationOrdered By: Dr. Durand on 08-26-2022 Estimated GFR (MDRD) Amer 26 mL/min >60 [facility] Comment on above: GFR Calc Estimated GFR (MDRD) Non-Af Amer 22 mL/min >60 [facility] Comment on above: Non- GFR Calc Free Triiodothyronine (T3) pg/dL 1.5 pg/mL 2.18-3.98 [facility] Thyroid Stimulating Hormone (TSH) 2.24 uIU/mL 0.358-3.74 [facility] Total Triiodothyronine 0.52 ng/mL 0.6-1.81 [facility] Serum or plasma calcium geena urement (mass/volume)Ordered By: Dr. Durand on 08-26-2022 Calcium [Mass/Vol] 8.9 mg/dL 8.5-10.1 [facility] Serum or plasma cholesterol in HDL measurement (mass/volume)Ordered By: Dr. Durand on 08-26-2022 Cholesterol in HDL [Mass/Vol] 32 mg/dL >40 [facility] Comment on above: The drugs N-Acetylcy steine and Metamizole may falsely depress this assay. Reference Range HDL <40 mg/dL Low HDL Cholesterol HDL >or= 60 mg/dL High HDL Cholesterol Serum or plasma cholesterol in VLDL measurement (mass/volume)Ordered By: Dr. Durand on 08-26-2022 Cholesterol in VLDL [Mass/Vol] 74 mg/dL 5-40 [facility] Serum or plasma creatinine m easurement (mass/volume)Ordered By: Dr. Durand on 08-26-2022 Creatinine [Mass/Vol] 2.98 mg/dL 0.70-1.[address] [facility] Comment on above: The validity of the calculated GFR & GFRAA in patients over 70 years has not been determined. Clinical correlation is essential. Serum or plasma low density lipoprotein (LDL) cholesterol measurement (mass/volume)Ordered By: Dr. Durand on 08-26-2022 Cholesterol in LDL [Mass/Vol] 37 mg/dL 0-130 [facility] Serum or plasma urea nitroge n measurement (mass/volume)Ordered By: Dr. Durand on 08-26-2022 Urea nitrogen [Mass/Vol] 55 mg/dL 7-18 [facility] Thin prep Papanicolaou smear with manual screeningOrdered By: Dr. Durand on 08-26-2022 Thin prep Papanicolaou smear with manual screening 11 5-15 [facility] Basophil percentageOrdered B y: Dr. Durand on 05-16-2022 Chloride [Moles/Vol] 98 mmol/L 98-107 [facility] Cholesterol [Mass/Vol] 149 mg/dL <200 [facility] Comment on above: <200 mg/dL Desirable 200-240 mg/dL Borderline >240 mg/dL High Risk Glucose [Mass/Vol] 147 mg/dL 74-106 [facility] Comment on above: Fasting Glucose resu lt greater than or equal to 126 mg/dL suggests DIABETES MELLITUS per A.D.A. criteria. Potassium [Moles/Vol] 3.8 mmol/L 3.5-5.[address] [facility] Sodium [Moles/Vol] 135 mmol/L 136-145 [facility] Triglyceride [Mass/Vol] 271 mg/dL <[address] [...] on 05-16-2022 CO2 [Moles/Vol] 27.0 mmol/L 21.0-32.0 [facility] Free T4 [Mass/Vol] 0.98 ng/dL 0.76-1.46 [facility] Urea nitrogen/Creatinine [Mass ratio] 22.8 mg/mg 10-20 [facility] No Panel InformationOrdered By: Dr. Durand on 05-16-2022 Estimated GFR (MDRD) Amer 26 mL/min >60 [facility] Comment on above: GFR Calc Estimated GFR (MDRD) Non-Af Amer 21 mL/min >60 [facility] Comment on above: Non- GFR Calc Free Triiodothyronine (T3) pg/dL 1.5 pg/mL 2.18-3.98 [facility] Prostate Specific Antigen Screen 0.33 ng/mL 0.00-4.00 [facility] Comment on above: This test was perfor med using the TPSA assay method for [employer] chemistry system. Values obtained with differentassay methods cannot be used interchangably.When changing PSA assays in the course of monitoring apatient, additional sequential testing should be carriedout to confirm baseline values. Thyroid Stimulating Hormone (TSH) 1.79 uIU/mL 0.358-3.74 [facility] Urine Microalbumin/Creatinine Ratio 16.7 mg/g CRE <30 [facility] Serum or plasma calcium geena urement (mass/volume)Ordered By: Dr. Durand on 05-16-2022 Calcium [Mass/Vol] 9.0 mg/dL 8.5-10.1 [facility] Serum or plasma cholesterol in HDL measurement (mass/volume)Ordered By: Dr. Durand on 05-16-2022 Cholesterol in HDL [Mass/Vol] 33 mg/dL >40 [facility] Comment on above: The drugs N-Acetylcy steine and Metamizole may falsely depress this assay. Reference Range HDL <40 mg/dL Low HDL Cholesterol HDL >or= 60 mg/dL High HDL Cholesterol Serum or plasma cholesterol in VLDL measurement (mass/volume)Ordered By: Dr. Durand on 05-16-2022 Cholesterol in VLDL [Mass/Vol] 54 mg/dL 5-40 [facility] Serum or plasma creatinine m easurement (mass/volume)Ordered By: Dr. Durand on 05-16-2022 Creatinine [Mass/Vol] 3.03 mg/dL 0.70-1.[address] [facility] Comment on above: The validity of the calculated GFR & GFRAA in patients over 70 years has not been determined. Clinical correlation is essential. Serum or plasma low density lipoprotein (LDL) cholesterol measurement (mass/volume)Ordered By: Dr. Durand on 05-16-2022 Cholesterol in LDL [Mass/Vol] 62 mg/dL 0-130 [facility] Serum or plasma urea nitroge n measurement (mass/volume)Ordered By: Dr. Durand on 05-16-2022 Urea nitrogen [Mass/Vol] 69 mg/dL 7-18 [facility] Thin prep Papanicolaou smear with manual screeningOrdered By: Dr. Durand on 05-16-2022 Thin prep Papanicolaou smear with manual screening 10 5-15 [facility] Thin prep Papanicolaou smear with manual screening 11.0 mg/L NO RANGE EST. [facility] Urine creatinine measurement (mass/volume)Ordered By: Dr. Durand on 05-16-2022 Creatinine (U) [Mass/Vol] 65.70 mg/dL NO RANGE EST. [facility] Echo 2D Doppler Coloron 08 TRANSTHORACIC ECHOCARDIOGRAM PATIENT: Megan Nascimento STUDY DATE: 03/20/2022 : 1940 AGE: 81 HT/WT: 170.2 cm (67 77.1 kg in) (169.6 lb) GENDER: M BP: 116 / 64 LOCATION: [facility] PATIENT Outpatient [facility] STATUS: *ORDERING PHYSICIAN: * Ruddy Gates *READING PHYSICIAN: * Cassia, *WAYBILL CLERK: * Tena MAYORGA INDICATIONS: CHF. CONCLUSIONS SUMMARY: [...] 5.4 cm 4.2 (more content not included)... [facility] CARDIOLOG[facility] Karan Antony MD - 03/20/2022 TRANSTHORACIC ECHOCARDIOGRAM PATIENT: Megan Nascimento STUDY DATE: 03/20/2022 : 1940 AGE: 81 HT/WT: 170.2 cm (67 77.1 kg in) (169.6 lb) GENDER: M BP: 116 / 64 LOCATION: [facility] STATUS: *ORDERING PHYSICIAN: * Ruddy Gates *READING PHYSICIAN: * Cassia, *WAYBILL CLERK: * Tena Russo RCS INDICATIONS: CHF. CONCLUSIONS SUMMARY: 1. Left ventricle: [...] LV end-diastolic volu (more content not included)... [employer] Work Phone: Echo 2D Doppler ColorOrdered By: Karan Antony on 03-20-2022 [employer] Work Phone: Echo Complete w/wo Contrasto n 03-20-2022 Echo Complete w/wo Contrast Patient Name: MEGAN NASCIMENTO Ultrasound ACCESSION EXAM DATE/TIME PROCEDURE ORDERING PROVIDER [id number] 03/20/2022 11:41 EDT Echo Complete w/wo MD YAJAIRA, RUDDY Gonzalez Contrast Reason For Exam (Echo Complete w/wo Contrast) chf Report TRANSTHORACIC ECHOCARDIOGRAM PATIENT: Megan Nascimento STUDY DATE: 03/20/2022 : 1940 AGE: 81 HT/WT: 170.2 cm (67 77.1 kg in) (169.6 lb) GENDER: M BP: 116 / 64 LOCATION: [facility] PATIENT Outpatient [facility] STATUS: *ORDERING PHYSICIAN: * Ruddy Gates *READING PHYSICIAN: * Cassia, *WAYBILL CLERK: * Tena MAYORGA INDICATIONS: CHF. CONCLUSIONS SUMMARY: [...] PW th (more content not included)... Normal [facility] Basophil percentageon 2021 Bilirubin [Mass/Vol] 0.40 mg/dL 0.20-1.00 [facility] Work Phone: Comment on above: For patients on eltr ombopag therapy, use of Dimension [place] TBIL is not recommended. Chloride [Moles/Vol] 97 mmol/L 98-107 [facility] Work Phone: Cholesterol [Mass/Vol] 219 mg/dL <200 [facility] Work Phone: Comment on above: <200 mg/dL Desirable 200-240 mg/dL Borderline >240 mg/dL High Risk Glucose [Mass/Vol] 140 mg/dL 74-106 [facility] Work Phone: Comment on above: Fasting Glucose resu lt greater than or equal to 126 mg/dL suggests DIABETES MELLITUS per A.D.A. criteria. Potassium [Moles/Vol] 3.8 mmol/L 3.5-5.[address] [facility] Work Phone: Protein [Mass/Vol] 7.6 g/dL 6.4-8.2 [facility] Work Phone: [phone] Sodium [Moles/Vol] 137 mmol/L 136-145 [facility] Work Phone: [phone] Triglyceride [Mass/Vol] 190 mg/dL <199 [facility] Work Phone: Comment on above: The drugs N-Acetylcy steine and Metamizole may falsely depress this assay.Serum Triglycerides Reference Interval Normal <150 mg/dL Borderline high 150 - 199 mg/dL High 200 - 499 mg/dL Very High > or = 500 mg/dL Laboratory - Chemistry and C hemistry - challengeon 10-25-2021 ALP [Catalytic activity/Vol] 108 U/L 45-117 [facility] Work Phone: ALT [Catalytic activity/Vol] 25 U/L 16-61 [facility] Work Phone: [phone] CO2 [Moles/Vol] 34.0 mmol/L 21.0-32.0 [facility] Work Phone: [phone] Free T4 [Mass/Vol] 0.88 ng/dL 0.76-1.46 [facility] Work Phone: [phone] Globulin (S) [Mass/Vol] 4.0 g/dL 2.2-4.2 [facility] Work Phone: [phone] Urea nitrogen/Creatinine [Mass ratio] 21.8 mg/mg 10-20 [facility] Work Phone: [phone] No Panel Informationon 10-25 Estimated GFR (MDRD) Amer 28 mL/min >60 [facility] Work Phone: [phone] Comment on above: GFR Calc Estimated GFR (MDRD) Non-Af Amer 23 mL/min >60 [facility] Work Phone: [phone] Comment on above: Non- GFR Calc Free Triiodothyronine (T3) pg/dL 1.6 pg/mL 2.18-3.98 [facility] Work Phone: [phone] Thyroid Stimulating Hormone (TSH) 2.36 uIU/mL 0.358-3.74 [facility] Work Phone: [phone] Serum or plasma albumin geena urement (mass/volume)on 10-25-2021 Albumin [Mass/Vol] 3.6 g/dL 3.2-5.0 [facility] Work Phone: [phone] Serum or plasma albumin/glob ulin mass ratioon 10-25-2021 Albumin/Globulin [Mass ratio] 0.9 {ratio} 0.9-2.4 [facility] Work Phone: [phone] Serum or plasma calcium geena urement (mass/volume)on 10-25-2021 Calcium [Mass/Vol] 8.7 mg/dL 8.5-10.1 [facility] Work Phone: Serum or plasma cholesterol in HDL measurement (mass/volume)on 10-25-2021 Cholesterol in HDL [Mass/Vol] 44 mg/dL >40 [facility] Work Phone: Comment on above: The drugs N-Acetylcy steine and Metamizole may falsely depress this assay. Reference Range HDL <40 mg/dL Low HDL Cholesterol HDL >or= 60 mg/dL High HDL Cholesterol Serum or plasma cholesterol in VLDL measurement (mass/volume)on 10-25-2021 Cholesterol in VLDL [Mass/Vol] 38 mg/dL 5-40 [facility] Work Phone: Serum or plasma creatinine m easurement (mass/volume)on 10-25-2021 Creatinine [Mass/Vol] 2.84 mg/dL 0.70-1.[address] [facility] Work Phone: Comment on above: The validity of the calculated GFR & GFRAA in patients over 70 years has not been determined. Clinical correlation is essential. Serum or plasma low density lipoprotein (LDL) cholesterol measurement (mass/volume)on 10-25-2021 Cholesterol in LDL [Mass/Vol] 137 mg/dL 0-130 [facility] Work Phone: Serum or plasma urea nitroge n measurement (mass/volume)on 10-25-2021 Urea nitrogen [Mass/Vol] 62 mg/dL 7-18 [facility] Work Phone: Thin prep Papanicolaou smear with manual screeningon 10-25-2021 Thin prep Papanicolaou smear with manual screening 25 U/L 15-37 [facility] Work Phone: [phone] Thin prep Papanicolaou smear with manual screening 6 5-15 [facility] Work Phone: [phone] Absolute lymphocyte counton 08-31-2021 Lymphocytes Auto (Unsp spec) [#/Vol] 1.08 10*3/uL 0.83-4.51 [facility] Work Phone: Basophil percentageon 2021 Basophils/100 WBC (Bld) 1.4 % 0-1 [facility] Work Phone: Eosinophils/100 WBC (Bld) 8.4 % 0-5 [facility] Work Phone: Neutrophils (Bld) [#/Vol] 3.8 10*3/uL 2.0-7.7 [facility] Work Phone: Neutrophils/100 WBC (Bld) 60.7 % 47-70 [facility] Work Phone: WBC (Bld) [#/Vol] 6.3 10*3/uL 4.4-11.0 [facility] Work Phone: Blood erythrocytes count (nu mber/volume)on 08-31-2021 RBC (Bld) [#/Vol] 3.44 10*6/uL 4.6-6.2 [facility] Work Phone: Blood hemoglobin measurement (mass/volume)on 08-31-2021 Hemoglobin (Bld) [Mass/Vol] 10.1 g/dL 13.0-16.5 [facility] Work Phone: Blood lymphocytes/100 leukoc yteson 08-31-2021 Lymphocytes/100 WBC (Bld) 17.2 % 19-41 [facility] Work Phone: Blood monocytes/100 leukocyt eson 08-31-2021 Monocytes/100 WBC (Bld) 11.8 % 0-10 [facility] Work Phone: Blood platelet mean volumeon 08-31-2021 Platelet mean volume (Bld) [Entitic vol] 9.8 fL 6.2-12.0 [facility] Work Phone: Determination of erythrocyte mean corpuscular volume (MCV)on 08-31-2021 MCV (RBC) [Entitic vol] 92.4 fL 80-94 [facility] Work Phone: Hematocrit Auto (Bld) [Volum e fraction]on 08-31-2021 Hematocrit (Bld) [Volume fraction] 31.8 % 40-54 [facility] Work Phone: Laboratory - Hematology and Cell countson 08-31-2021 Erythrocyte distribution width (RBC) [Entitic vol] 49.4 fL 35.1-43.9 [facility] Work Phone: Erythrocyte distribution width (RBC) [Ratio] 14.6 % 11.6-14.6 [facility] Work Phone: Immature granulocytes/100 WBC (Bld) 0.500 % 0.0-0.9 [facility] Work Phone: [phone] Comment on above: IG% - Immature Granu locytes (promyelocytes, myelocytes and metamyelocytes) > 1% indicates that a LEFT SHIFT is Present. MCH (RBC) [Entitic mass] 29.4 pg 27.0-32.0 [facility] Work Phone: Nucleated RBC/100 WBC (Bld) [Ratio] 0 % 0-5 [facility] Work Phone: MCHC Auto (RBC) [Mass/Vol]on 08-31-2021 MCHC (RBC) [Mass/Vol] 31.8 g/dL 32-[address] [facility] Work Phone: Platelets bldon 08-31-2021 Platelets (Bld) [#/Vol] 320 10*3/uL 150-450 [facility] Work Phone: Absolute lymphocyte counton 08-22-2021 Lymphocytes Auto (Unsp spec) [#/Vol] 1.00 10*3/uL 0.83-4.51 [facility] Work Phone: Basophil percentageon 2021 Basophils/100 WBC (Bld) 0.6 % 0-1 [facility] Work Phone: Chloride [Moles/Vol] 96 mmol/L 98-107 [facility] Work Phone: Eosinophils/100 WBC (Bld) 2.1 % 0-5 [facility] Work Phone: Glucose [Mass/Vol] 106 mg/dL 74-106 [facility] Work Phone: Comment on above: Fasting Glucose resu lt from 100 to 125 mg/dL suggests IMPAIRED HOMEOSTASIS per A.D.A. criteria. Neutrophils (Bld) [#/Vol] 6.2 10*3/uL 2.0-7.7 [facility] Work Phone: [phone] Neutrophils/100 WBC (Bld) 77.2 % 47-70 [facility] Work Phone: [phone] Potassium [Moles/Vol] 3.3 mmol/L 3.5-5.[address] [facility] Work Phone: [phone] Sodium [Moles/Vol] 136 mmol/L 136-145 [facility] Work Phone: [phone] WBC (Bld) [#/Vol] 8.0 10*3/uL 4.4-11.0 [facility] Work Phone: [phone] Blood erythrocytes count (nu mber/volume)on 08-22-2021 RBC (Bld) [#/Vol] 3.10 10*6/uL 4.6-6.2 [facility] Work Phone: [phone] Blood hemoglobin measurement (mass/volume)on 08-22-2021 Hemoglobin (Bld) [Mass/Vol] 9.1 g/dL 13.0-16.5 [facility] Work Phone: [phone] Blood lymphocytes/100 leukoc yteson 08-22-2021 Lymphocytes/100 WBC (Bld) 12.5 % 19-41 [facility] Work Phone: [phone] Blood monocytes/100 leukocyt eson 08-22-2021 Monocytes/100 WBC (Bld) 7.0 % 0-10 [facility] Work Phone: [phone] Blood platelet mean volumeon 08-22-2021 Platelet mean volume (Bld) [Entitic vol] 8.8 fL 6.2-12.0 [facility] Work Phone: [phone] Determination of erythrocyte mean corpuscular volume (MCV)on 08-22-2021 MCV (RBC) [Entitic vol] 88.4 fL 80-94 [facility] Work Phone: [phone] Glucose Glucometer (BldC) [M ass/Vol]on 08-22-2021 Glucose [Mass/Vol] 119 mg/dL 70-110 [facility] Work Phone: [phone] Comment on above: MANAGEMENT OF PATIEN T CARE PER NURSING PROTOCOL Hematocrit Auto (Bld) [Volum e fraction]on 08-22-2021 Hematocrit (Bld) [Volume fraction] 27.4 % 40-54 [facility] Work Phone: [phone] Laboratory - Chemistry and C hemistry - challengeon 08-22-2021 CO2 [Moles/Vol] 29.0 mmol/L 21.0-32.0 [facility] Work Phone: [phone] Urea nitrogen/Creatinine [Mass ratio] 40.1 mg/mg 10-20 [facility] Work Phone: [phone] Laboratory - Hematology and Cell countson 08-22-2021 Erythrocyte distribution width (RBC) [Entitic vol] 52.3 fL 35.1-43.9 [facility] Work Phone: [phone] Erythrocyte distribution width (RBC) [Ratio] 16.7 % 11.6-14.6 [facility] Work Phone: [phone] Immature granulocytes/100 WBC (Bld) 0.600 % 0.0-0.9 [facility] Work Phone: [phone] Comment on above: IG% - Immature Granu locytes (promyelocytes, myelocytes and metamyelocytes) > 1% indicates that a LEFT SHIFT is Present. MCH (RBC) [Entitic mass] 29.4 pg 27.0-32.0 [facility] Work Phone: [phone] Nucleated RBC/100 WBC (Bld) [Ratio] 0 % 0-5 [facility] Work Phone: [phone] MCHC Auto (RBC) [Mass/Vol]on 08-22-2021 MCHC (RBC) [Mass/Vol] 33.2 g/dL 32-[address] [facility] Work Phone: [phone] Panel Informationon 08-22 Estimated Creatinine Clearance Calc 17.52 ml/min [facility] Work Phone: Estimated GFR (MDRD) Amer 26 mL/min >60 [facility] Work Phone: Comment on above: GFR Calc Estimated GFR (MDRD) Non-Af Amer 21 mL/min >60 [facility] Work Phone: Comment on above: Non- GFR Calc Platelets bldon 08-22-2021 Platelets (Bld) [#/Vol] 301 10*3/uL 150-450 [facility] Work Phone: Serum or plasma calcium geena urement (mass/volume)on 08-22-2021 Calcium [Mass/Vol] 8.8 mg/dL 8.5-10.1 [facility] Work Phone: Serum or plasma creatinine m easurement (mass/volume)on 08-22-2021 Creatinine [Mass/Vol] 3.04 mg/dL 0.70-1.[address] [facility] Work Phone: Comment on above: The validity of the calculated GFR & GFRAA in patients over 70 years has not been determined. Clinical correlation is essential. Serum or plasma urea nitroge n measurement (mass/volume)on 08-22-2021 Urea nitrogen [Mass/Vol] 122 mg/dL 7-18 [facility] Work Phone: Comment on above: Critical Result(s) C alled at: 04:54:27 08/22/2021 by: Prem Pitt TO Tabatha ISLAS RN (ICU) Results read back by same. Thin prep Papanicolaou smear with manual screeningon 08-22-2021 Thin prep Papanicolaou smear with manual screening 11 5-15 [facility] Work Phone: Blood manual differential co mment interpretation (narrative result)on 08-21-2021 Manual differential comment Raymond (Bld) [Interp] SCANNED [facility] Work Phone: Hypochromatic red blood cell detectionon 08-21-2021 Hypochromia Ql (Bld) 2+ [facility] Work Phone: No Panel Informationon 08-21 SARS-CoV-2 Antigen (Rapid) [facility] Work Phone: Review by pathologiston 0 Pathologist review Raymond (Unsp spec) [Interp] Reviewed [facility] Work Phone: Comment on above: Previous reported re sult: Jossy floyd Edited by: RGOOD on 08/22/21:0934Macrocytic anemia.Lymphopenia, relativeClinical correlation suggested.Art Bal D.O. 08/22/21 AMENDED REPORT 08/22/21 0934 PATH REV previously reported as: Jossy floyd Basophil percentageon 2021 Basophil percentage 0-5 SEEN /hpf [facility] Work Phone: Bilirubin [Mass/Vol] 0.40 mg/dL 0.20-1.00 [facility] Work Phone: Comment on above: For patients on eltr ombopag therapy, use of Dimension [place] TBIL is not recommended. Protein [Mass/Vol] 7.0 g/dL 6.4-8.2 [facility] Work Phone: [phone] Bilirubin Test strip Ql (U)o n 08-20-2021 Bilirubin Ql (U) Negative Negative [facility] Work Phone: Blood naomi cells detection b y light microscopyon 08-20-2021 Winterthur cells LM Ql (Bld) 1+ [facility] Work Phone: Blood platelet adequacy dete ction by light microscopyon 08-20-2021 Platelets LM Ql (Bld) SLT INC ADEQ [facility] Work Phone: Blood polychromasia detectio n by light microscopyon 08-20-2021 Polychromasia LM Ql (Bld) RARE [facility] Work Phone: INR in Blood by Coagulation assayon 08-20-2021 INR Coag (Bld) [Relative time] 1.5 {INR} [facility] Work Phone: [phone] Ketones Test strip Ql (U)on 08-20-2021 Ketones Ql (U) Negative Negative [facility] Work Phone: Laboratory - Chemistry and C hemistry - challengeon 08-20-2021 ALP [Catalytic activity/Vol] 118 U/L 45-117 [facility] Work Phone: ALT [Catalytic activity/Vol] 20 U/L 16-61 [facility] Work Phone: Globulin (S) [Mass/Vol] 4.2 g/dL 2.2-4.2 [facility] Work Phone: Laboratory - Coagulationon 0 08-20-2021 PT Coag (PPP) [Time] 17.6 s 11.7-14.9 [facility] Work Phone: Laboratory - Hematology and Cell countson 08-20-2021 Anisocytosis Ql (Bld) 1+ [facility] Work Phone: Lower GI hemoglobin IA Ql (S tl)on 08-20-2021 Stool Occult Blood (BRAD) Positive [facility] Work Phone: Macrocytes detectionon 08-20 Macrocytes Ql (Bld) 1+ [facility] Work Phone: Mucus LM Ql (Urine sed)on Mucus Ql (Urine sed) 0 SEEN /hpf [facility] Work Phone: Nitrite Test strip Ql (U)on 08-20-2021 Nitrite Ql (U) Negative Negative [facility] Work Phone: No Panel Informationon 08-20 Troponin I High Sensitivity 31 pg/mL 3.0-78.0 [facility] Work Phone: Comment on above: Please Note: [place] t Units and Gender Specific Reference Ranges. For more information see Policy Stat Procedure [place] High Sensitivity Troponin (TNIH) and attachments. Ovalocyte detectionon 2021 Ovalocytes LM Ql (Bld) RARE [facility] Work Phone: Protein Test strip Ql (U)on 08-20-2021 Protein Ql (U) Negative Negative [facility] Work Phone: RBC morphologyon 08-20-2021 RBC morphology finding Nom (Bld) N CHROM NORMAL NORM C&C [facility] Work Phone: Serum or plasma albumin geena urement (mass/volume)on 08-20-2021 Albumin [Mass/Vol] 2.8 g/dL 3.2-5.0 [facility] Work Phone: Serum or plasma albumin/glob ulin mass ratioon 08-20-2021 Albumin/Globulin [Mass ratio] 0.7 {ratio} 0.9-2.4 [facility] Work Phone: [phone] Squamous epithelial cells de tection in urine sediment by light microscopyon 08-20-2021 Epithelial cells.squamous LM Ql (Urine sed) 0 SEEN /hpf [facility] Work Phone: Target cell detectionon 07-23 Target cells LM Ql (Bld) RARE [facility] Work Phone: Thin prep Papanicolaou smear with manual screeningon 08-20-2021 Thin prep Papanicolaou smear with manual screening 43 U/L 15-37 [facility] Work Phone: Comment on above: Moderate Hemolysis, Result may be falsely increased. Urine blood detectionon 07-23 RBC Ql (U) Negative Negative [facility] Work Phone: RBC Ql (U) 0 SEEN /hpf [facility] Work Phone: Urine clarityon 08-20-2021 Clarity (U) Sl. Cloudy Clear [facility] Work Phone: Urine color determinationon 08-20-2021 Color (U) Yellow Yellow [facility] Work Phone: [phone] Urine glucose detectionon Glucose Ql (U) Normal mg/dl Normal [facility] Work Phone: Urine leukocyte esterase det ection by dipstickon 08-20-2021 Leukocyte esterase Test strip Ql (U) 25 /ul Negative [facility] Work Phone: Urine pHon 08-20-2021 pH (U) 5.0 [pH] [facility] Work Phone: [phone] Urine sediment bacteria coun t by microscopy (number/high power field)on 08-20-2021 Bacteria LM.HPF (Urine sed) [#/Area] 0 /[HPF] None Seen [facility] Work Phone: [phone] Urine specific gravity measu rementon 08-20-2021 Specific gravity (U) [Rel density] 1.010 [facility] Work Phone: [phone] Urobilinogen Auto test strip Ql (U)on 08-20-2021 Urobilinogen Ql (U) Normal mg/dl Normal [facility] Work Phone: Basophil percentageon 2021 Chloride [Moles/Vol] 90 mmol/L 98-107 [facility] Work Phone: [phone] Glucose [Mass/Vol] 120 mg/dL 74-106 [facility] Work Phone: [phone] Comment on above: Fasting Glucose resu lt from 100 to 125 mg/dL suggests IMPAIRED HOMEOSTASIS per A.D.A. criteria. Potassium [Moles/Vol] 4.1 mmol/L 3.5-5.[address] [facility] Work Phone: [phone] Sodium [Moles/Vol] 131 mmol/L 136-145 [facility] Work Phone: [phone] Laboratory - Chemistry and C hemistry - challengeon 08-09-2021 CO2 [Moles/Vol] 31.0 mmol/L 21.0-32.0 [facility] Work Phone: [phone] Urea nitrogen/Creatinine [Mass ratio] 36.8 mg/mg - [facility] Work Phone: [phone] Panel Informationon 08-09 Estimated GFR (MDRD) Amer 25 mL/min >60 [facility] Work Phone: [phone] Comment on above: GFR Calc Estimated GFR (MDRD) Non-Af Amer 20 mL/min >60 [facility] Work Phone: Comment on above: Non- GFR Calc Serum or plasma calcium geena urement (mass/volume)on 08-09-2021 Calcium [Mass/Vol] 9.6 mg/dL 8.5-10.1 [facility] Work Phone: Serum or plasma creatinine m easurement (mass/volume)on 08-09-2021 Creatinine [Mass/Vol] 3.15 mg/dL 0.70-1.[address] [facility] Work Phone: Comment on above: The validity of the calculated GFR & GFRAA in patients over 70 years has not been determined. Clinical correlation is essential. Serum or plasma urea nitroge n measurement (mass/volume)on 08-09-2021 Urea nitrogen [Mass/Vol] 116 mg/dL 7-18 [facility] Work Phone: Comment on above: Critical Result(s) C alled at: 10:47:15 08/09/2021 by: Claudine King. Results read back by same. Thin prep Papanicolaou smear with manual screeningon 08-09-2021 Thin prep Papanicolaou smear with manual screening 10 5-15 [facility] Work Phone: Absolute lymphocyte counton 07-09-2021 Lymphocytes Auto (Unsp spec) [#/Vol] 1.02 10*3/uL 0.83-4.51 [facility] Work Phone: [phone] Basophil percentageon 2020 Eosinophils/100 WBC (Bld) 10.9 % 0-5 [facility] Work Phone: [phone] Neutrophils (Bld) [#/Vol] 3.1 10*3/uL 2.0-7.7 [facility] Work Phone: [phone] WBC (Bld) [#/Vol] 5.2 10*3/uL 4.4-11.0 [facility] Work Phone: Blood erythrocytes count (nu mber/volume)on 07-09-2021 RBC (Bld) [#/Vol] 2.75 10*6/uL 4.6-6.2 [facility] Work Phone: Blood hemoglobin measurement (mass/volume)on 07-09-2021 Hemoglobin (Bld) [Mass/Vol] 8.0 g/dL 13.0-16.5 [facility] Work Phone: Blood lymphocytes/100 leukoc yteson 07-09-2021 Lymphocytes/100 WBC (Bld) 19.8 % 19-41 [facility] Work Phone: [phone] Blood monocytes/100 leukocyt eson 07-09-2021 Monocytes/100 WBC (Bld) 8.2 % 0-10 [facility] Work Phone: [phone] Blood platelet mean volumeon 07-09-2021 Platelet mean volume (Bld) [Entitic vol] 10.3 fL 6.2-12.0 [facility] Work Phone: Determination of erythrocyte mean corpuscular volume (MCV)on 07-09-2021 MCV (RBC) [Entitic vol] 92.7 fL 80-94 [facility] Work Phone: [phone] Hematocrit Auto (Bld) [Volum e fraction]on 07-09-2021 Hematocrit (Bld) [Volume fraction] 25.5 % 40-54 [facility] Work Phone: Laboratory - Hematology and Cell countson 07-09-2021 Basophils/100 WBC (Unsp spec) 1.0 % 0-1 [facility] Work Phone: [phone] Erythrocyte distribution width (RBC) [Entitic vol] 53.7 fL 35.1-43.9 [facility] Work Phone: [phone] Erythrocyte distribution width (RBC) [Ratio] 15.8 % 11.6-14.6 [facility] Work Phone: [phone] Immature granulocytes/100 WBC (Bld) 0.400 % 0.0-0.9 [facility] Work Phone: [phone] Comment on above: IG% - Immature Granu locytes (promyelocytes, myelocytes and metamyelocytes) > 1% indicates that a LEFT SHIFT is Present. MCH (RBC) [Entitic mass] 29.1 pg 27.0-32.0 [facility] Work Phone: [phone] Neutrophils/100 WBC (Bld) 59.7 % 47-70 [facility] Work Phone: Nucleated RBC/100 WBC (Bld) [Ratio] 0 % 0-5 [facility] Work Phone: MCHC Auto (RBC) [Mass/Vol]on 07-09-2021 MCHC (RBC) [Mass/Vol] 31.4 g/dL 32-[address] [facility] Work Phone: Platelets bldon 07-09-2021 Platelets (Bld) [#/Vol] 276 10*3/uL 150-450 [facility] Work Phone: [phone] Basic Metabolic Panelon 11-0 Anion gap [Moles/Vol] 5 mmol/L Normal 3-13 [facility] Comment on above: Order Comment: SLIGH T HEMOLYSIS Performed By: #### L IPD2, BMP3, MG3 #### [facility] [address] [place] [address] Calcium [Mass/Vol] 9.4 mg/dL Normal 8.4-10.4 [facility] Comment on above: Order Comment: SLIGH T HEMOLYSIS Performed By: #### L IPD2, BMP3, MG3 #### [facility] [address] [place] [address] CO2 [Moles/Vol] 36 mmol/L High 22-30 [facility] Comment on above: Order Comment: SLIGH T HEMOLYSIS Performed By: #### L IPD2, BMP3, MG3 #### [facility] [address] [place] [address] Creatinine [Mass/Vol] 2.03 mg/dL High 0.52-1.25 [facility] Comment on above: Order Comment: SLIGH T HEMOLYSIS Performed By: #### L IPD2, BMP3, MG3 #### [facility] [address] [place] [address] GFR/1.73 sq M.predicted among blacks MDRD (S/P/Bld) [Vol rate/Area] 34.4 mL/min/{1.73_m2} Abnormal >60 [facility] Comment on above: Order Comment: SLIGH T HEMOLYSIS Performed By: #### L IPD2, BMP3, MG3 #### [facility] [employer] [facility] [address] [place] [address] GFR/1.73 sq M.predicted among non-blacks MDRD (S/P/Bld) [Vol rate/Area] 29.7 mL/min/{1.73_m2} Abnormal >60 [facility] Comment on above: Order Comment: SLIGH [...] By: #### L IPD2, BMP3, MG3 #### [facility] [employer] [facility] [address] [place] [address] Glucose [Mass/Vol] 97 mg/dL Normal 70-100 [facility] Comment on above: Order Comment: SLIGH T HEMOLYSIS Performed By: #### L IPD2, BMP3, MG3 #### [facility] [employer] [facility] [address] [place] [address] Urea nitrogen [Mass/Vol] 80 mg/dL High 7-17 [facility] Comment on above: Order Comment: SLIGH T HEMOLYSIS Performed By: #### L IPD2, BMP3, MG3 #### [facility] [employer] [facility] [address] [place] [address] Chloride [Moles/Vol] 98 mmol/L Normal 98-107 [facility] Comment on above: Order Comment: SLIGH T HEMOLYSIS Performed By: #### L IPD2, BMP3, MG3 #### [facility] [address] [place] [address] Potassium [Moles/Vol] 4.0 mmol/L Normal 3.5-5.1 [facility] Comment on above: Order Comment: SLIGH T HEMOLYSIS Performed By: #### L IPD2, BMP3, MG3 #### [facility] [address] [place] [address] Sodium [Moles/Vol] 139 mmol/L Normal 135-145 [facility] Comment on above: Order Comment: SLIGH T HEMOLYSIS Performed By: #### L IPD2, BMP3, MG3 #### [facility] [address] [place] [address] Glucose,Bedsideon 05-21-2021 Glucose [Mass/Vol] 154 mg/dL High 70-100 [facility] Comment on above: Result Comment: Test performed by glucose meter. Results may be 10%-15% lower than serum/plasma values. (CLIA ID [id number]) Performed By: #### L IPD2, BMP3, MG3 #### [facility] [address] [place] [address] Glucose [Mass/Vol] 96 mg/dL Normal 70-100 [facility] Comment on above: Result Comment: Test performed by glucose meter. Results may be 10%-15% lower than serum/plasma values. (CLIA ID [id number]) Performed By: #### B GLU #### [facility] [address] [place] [address] Hemogram w/ Autodiffon 05-21 Abs Baso Cnt 0.0 10*3/uL Normal 0.0-0.2 [facility] Comment on above: Performed By: #### B NP3, TROPN, BMP3, HEMDF #### [facility] [address] [place] [address] Abs Neutrophile Cnt 2.1 10*3/uL Normal 1.8-7.0 [facility] Comment on above: Performed By: #### B NP3, TROPN, BMP3, HEMDF #### [facility] [address] [place] [address] Basophils/100 WBC (Bld) 0.5 % Normal 0.0-2.0 [facility] Comment on above: Performed By: #### B NP3, TROPN, BMP3, HEMDF #### [facility] [address] [place] [address] Eosinophils (Bld) [#/Vol] 0.4 10*3/uL Normal 0.0-0.5 [facility] Comment on above: Performed By: #### B NP3, TROPN, BMP3, HEMDF #### [facility] [address] [place] [address] Eosinophils/100 WBC (Bld) 11.8 % High 1.0-6.0 [facility] Comment on above: Performed By: #### B NP3, TROPN, BMP3, HEMDF #### [facility] [address] [place] [address] Erythrocyte distribution width (RBC) [Ratio] 18.6 % High 11.5-14.5 [facility] Comment on above: Performed By: #### B NP3, TROPN, BMP3, HEMDF #### [facility] [address] [place] [address] Granulocytes/100 WBC (Bld) 57.5 % Normal 40.0-80.0 [facility] Comment on above: Performed By: #### B NP3, TROPN, BMP3, HEMDF #### [facility] [address] [place] [address] Hematocrit (Bld) [Volume fraction] 32.7 % Low 40.0-52.0 [facility] Comment on above: Performed By: #### B NP3, TROPN, BMP3, HEMDF #### [facility] [address] [place] [address] Hemoglobin (Bld) [Mass/Vol] 10.9 g/dL Low 13.0-18.0 [facility] Comment on above: Performed By: #### B NP3, TROPN, BMP3, HEMDF #### [facility] [address] [place] [address] Lymphocytes (Bld) [#/Vol] 0.7 10*3/uL Low 1.0-4.3 [facility] Comment on above: Performed By: #### B NP3, TROPN, BMP3, HEMDF #### [facility] [address] [place] [address] Lymphocytes/100 WBC (Bld) 19.1 % Low 20.0-40.0 [facility] Comment on above: Performed By: #### B NP3, TROPN, BMP3, HEMDF #### [facility] [address] [place] [address] MCH (RBC) [Entitic mass] 30.0 pg Normal 26.0-34.0 [facility] Comment on above: Performed By: #### B NP3, TROPN, BMP3, HEMDF #### [facility] [address] [place] [address] MCHC 33.2 % Normal 32.0-36.0 [facility] Comment on above: Performed By: #### B NP3, TROPN, BMP3, HEMDF #### [facility] [address] [place] [address] MCV (RBC) [Entitic vol] 90.4 fL Normal 80.0-98.0 [facility] Comment on above: Performed By: #### B NP3, TROPN, BMP3, HEMDF #### [facility] [address] [place] [address] Monocytes (Bld) [#/Vol] 0.4 10*3/uL Normal 0.0-0.8 [facility] Comment on above: Performed By: #### B NP3, TROPN, BMP3, HEMDF #### [facility] [address] [place] [address] Monocytes/100 WBC (Bld) 11.1 % High 2.0-10.0 [facility] Comment on above: Performed By: #### B NP3, TROPN, BMP3, HEMDF #### [facility] [address] [place] [address] Platelet mean volume (Bld) [Entitic vol] 10.0 fL Normal 7.4-10.4 [facility] Comment on above: Performed By: #### B NP3, TROPN, BMP3, HEMDF #### [facility] [address] [place] [address] Platelets (Bld) [#/Vol] 295 10*3/uL Normal 140-440 [facility] Comment on above: Performed By: #### B NP3, TROPN, BMP3, HEMDF #### [facility] [address] [place] [address] RBC (Bld) [#/Vol] 3.62 10*6/uL Low 4.40-5.90 [facility] Comment on above: Performed By: #### B NP3, TROPN, BMP3, HEMDF #### [facility] [address] [place] [address] WBC (Bld) [#/Vol] 3.7 10*3/uL Normal 3.6-10.7 [facility] Comment on above: Performed By: #### B NP3, TROPN, BMP3, HEMDF #### [facility] [address] [place] [address] Basic Metabolic Panelon 10-3 -2020 Anion gap [Moles/Vol] 9 mmol/L Normal 3-13 [facility] Comment on above: Performed By: #### B GLU #### [facility] [address] [place] [address] Calcium [Mass/Vol] 9.4 mg/dL Normal 8.4-10.4 [facility] Comment on above: Performed By: #### B GLU #### [facility] [address] [place] [address] CO2 [Moles/Vol] 33 mmol/L High 22-30 [facility] Comment on above: Performed By: #### B GLU #### [facility] [address] [place] [address] Creatinine [Mass/Vol] 2.21 mg/dL High 0.52-1.25 [facility] Comment on above: Performed By: #### B GLU #### [facility] [address] [place] [address] GFR/1.73 sq M.predicted among blacks MDRD (S/P/Bld) [Vol rate/Area] 31.0 mL/min/{1.73_m2} Abnormal >60 [facility] Comment on above: Performed By: #### B GLU #### [facility] [address] [place] [address] GFR/1.73 sq M.predicted among non-blacks MDRD (S/P/Bld) [Vol rate/Area] 26.8 mL/min/{1.73_m2} Abnormal >60 [facility] Comment on above: Result Comment: KDIG [...] secretion. Performed By: #### B GLU #### [facility] [address] [place] [address] Glucose [Mass/Vol] 101 mg/dL High 70-100 [facility] Comment on above: Performed By: #### B GLU #### [facility] [address] [place] [address] Urea nitrogen [Mass/Vol] 72 mg/dL High 7-17 [facility] Comment on above: Performed By: #### B GLU #### [facility] [address] [place] [address] Chloride [Moles/Vol] 97 mmol/L Low 98-107 [facility] Comment on above: Performed By: #### B GLU #### [facility] [address] [place] [address] Potassium [Moles/Vol] 3.9 mmol/L Normal 3.5-5.1 [facility] Comment on above: Performed By: #### B GLU #### [facility] [address] [place] [address] Sodium [Moles/Vol] 140 mmol/L Normal 135-145 [facility] Comment on above: Performed By: #### B GLU #### [facility] [address] [place] [address] Glucose,Bedsideon 05-20-2021 Glucose [Mass/Vol] 153 mg/dL High 70-100 [facility] Comment on above: Result Comment: Test performed by glucose meter. Results may be 10%-15% lower than serum/plasma values. (CLIA ID [id number]) Performed By: #### L IPD2, BMP3, MG3 #### [facility] [address] [place] [address] Glucose [Mass/Vol] 148 mg/dL High 70-100 [facility] Comment on above: Result Comment: Test performed by glucose meter. Results may be 10%-15% lower than serum/plasma values. (CLIA ID [id number]) Performed By: #### B GLU #### [facility] [address] [place] [address] Glucose [Mass/Vol] 125 mg/dL High 70-100 [facility] Comment on above: Result Comment: Test performed by glucose meter. Results may be 10%-15% lower than serum/plasma values. (CLIA ID [id number]) Performed By: #### B GLU #### [facility] [address] [place] [address] Glucose [Mass/Vol] 99 mg/dL Normal 70-100 [facility] Comment on above: Result Comment: Test performed by glucose meter. Results may be 10%-15% lower than serum/plasma values. (CLIA ID [id number]) Performed By: #### L IPD2, BMP3, MG3 #### [facility] [address] [place] [address] Hemogram w/ Autodiffon 05-20 Abs Baso Cnt 0.1 10*3/uL Normal 0.0-0.2 [facility] Comment on above: Performed By: #### B GLU #### [facility] [address] [place] [address] Abs Neutrophile Cnt 2.5 10*3/uL Normal 1.8-7.0 [facility] Comment on above: Performed By: #### B GLU #### [facility] [address] [place] [address] Basophils/100 WBC (Bld) 1.7 % Normal 0.0-2.0 [facility] Comment on above: Performed By: #### B GLU #### [facility] [address] [place] [address] Eosinophils (Bld) [#/Vol] 0.5 10*3/uL Normal 0.0-0.5 [facility] Comment on above: Performed By: #### B GLU #### [facility] [address] [place] [address] Eosinophils/100 WBC (Bld) 11.1 % High 1.0-6.0 [facility] Comment on above: Performed By: #### B GLU #### [facility] [address] [place] [address] Erythrocyte distribution width (RBC) [Ratio] 18.1 % High 11.5-14.5 [facility] Comment on above: Performed By: #### B GLU #### [facility] [address] [place] [address] Granulocytes/100 WBC (Bld) 55.7 % Normal 40.0-80.0 [facility] Comment on above: Performed By: #### B GLU #### [facility] [address] [place] [address] Hematocrit (Bld) [Volume fraction] 35.8 % Low 40.0-52.0 [facility] Comment on above: Performed By: #### B GLU #### [facility] [address] [place] [address] Hemoglobin (Bld) [Mass/Vol] 11.5 g/dL Low 13.0-18.0 [facility] Comment on above: Performed By: #### B GLU #### [facility] [address] [place] [address] Lymphocytes (Bld) [#/Vol] 0.9 10*3/uL Low 1.0-4.3 [facility] Comment on above: Performed By: #### B GLU #### [facility] [address] [place] [address] Lymphocytes/100 WBC (Bld) 19.8 % Low 20.0-40.0 [facility] Comment on above: Performed By: #### B GLU #### [facility] [address] [place] [address] MCH (RBC) [Entitic mass] 29.4 pg Normal 26.0-34.0 [facility] Comment on above: Performed By: #### B GLU #### [facility] [address] [place] [address] MCHC 32.1 % Normal 32.0-36.0 [facility] Comment on above: Performed By: #### B GLU #### [facility] [address] [place] [address] MCV (RBC) [Entitic vol] 91.5 fL Normal 80.0-98.0 [facility] Comment on above: Performed By: #### B GLU #### [facility] [address] [place] [address] Monocytes (Bld) [#/Vol] 0.5 10*3/uL Normal 0.0-0.8 [facility] Comment on above: Performed By: #### B GLU #### [facility] [address] [place] [address] Monocytes/100 WBC (Bld) 11.7 % High 2.0-10.0 [facility] Comment on above: Performed By: #### B GLU #### [facility] [address] [place] [address] Platelet mean volume (Bld) [Entitic vol] 8.5 fL Normal 7.4-10.4 [facility] Comment on above: Performed By: #### B GLU #### [facility] [address] [place] [address] Platelets (Bld) [#/Vol] 221 10*3/uL Normal 140-440 [facility] Comment on above: Performed By: #### B GLU #### [facility] [address] [place] [address] RBC (Bld) [#/Vol] 3.91 10*6/uL Low 4.40-5.90 [facility] Comment on above: Performed By: #### B GLU #### [facility] [address] [place] [address] WBC (Bld) [#/Vol] 4.4 10*3/uL Normal 3.6-10.7 [facility] Comment on above: Performed By: #### B GLU #### [facility] [address] [place] [address] Basic Metabolic Panelon 103 0-2020 Calcium [Mass/Vol] 9.6 mg/dL Normal 8.4-10.4 [facility] Comment on above: Performed By: #### B NP3, TROPN, BMP3, HEMDF #### [facility] [address] [place] [address] Glucose [Mass/Vol] 99 mg/dL Normal 70-100 [facility] Comment on above: Performed By: #### B NP3, TROPN, BMP3, HEMDF #### [facility] [address] [place] [address] Anion gap [Moles/Vol] 7 mmol/L Normal 3-13 [facility] Comment on above: Performed By: #### B NP3, TROPN, BMP3, HEMDF #### [facility] [address] [place] [address] CO2 [Moles/Vol] 32 mmol/L High 22-30 [facility] Comment on above: Performed By: #### B NP3, TROPN, BMP3, HEMDF #### [facility] [address] [place] [address] Creatinine [Mass/Vol] 2.35 mg/dL High 0.52-1.25 [facility] Comment on above: Performed By: #### B NP3, TROPN, BMP3, HEMDF #### [facility] [address] [place] [address] GFR/1.73 sq M.predicted among blacks MDRD (S/P/Bld) [Vol rate/Area] 28.8 mL/min/{1.73_m2} Abnormal >60 [facility] Comment on above: Performed By: #### B NP3, TROPN, BMP3, HEMDF #### [facility] [address] [place] [address] GFR/1.73 sq M.predicted among non-blacks MDRD (S/P/Bld) [Vol rate/Area] 24.8 mL/min/{1.73_m2} Abnormal >60 [facility] Comment on above: Result Comment: KDIG [...] #### B NP3, TROPN, BMP3, HEMDF #### [facility] [address] [place] [address] Urea nitrogen [Mass/Vol] 69 mg/dL High 7-17 [facility] Comment on above: Performed By: #### B NP3, TROPN, BMP3, HEMDF #### [facility] [address] [place] [address] Chloride [Moles/Vol] 98 mmol/L Normal 98-107 [facility] Comment on above: Performed By: #### B NP3, TROPN, BMP3, HEMDF #### [facility] [address] [place] [address] Potassium [Moles/Vol] 3.8 mmol/L Normal 3.5-5.1 [facility] Comment on above: Performed By: #### B NP3, TROPN, BMP3, HEMDF #### [facility] [address] [place] [address] Sodium [Moles/Vol] 138 mmol/L Normal 135-145 [facility] Comment on above: Performed By: #### B NP3, TROPN, BMP3, HEMDF #### [facility] [address] [place] [address] Glucose,Bedsideon 05-19-2021 Glucose [Mass/Vol] 124 mg/dL High 70-100 [facility] Comment on above: Result Comment: Test performed by glucose meter. Results may be 10%-15% lower than serum/plasma values. (CLIA ID [id number]) Performed By: #### B GLU #### [facility] [address] [place] [address] Glucose [Mass/Vol] 126 mg/dL High 70-100 [facility] Comment on above: Result Comment: Test performed by glucose meter. Results may be 10%-15% lower than serum/plasma values. (CLIA ID [id number]) Performed By: #### B NP3, TROPN, BMP3, HEMDF #### [facility] [address] [place] [address] Glucose [Mass/Vol] 153 mg/dL High 70-100 [facility] Comment on above: Result Comment: Test performed by glucose meter. Results may be 10%-15% lower than serum/plasma values. (CLIA ID [id number]) Performed By: #### L IPD2, BMP3, MG3 #### [facility] [address] [place] [address] Glucose [Mass/Vol] 87 mg/dL Normal 70-100 [facility] Comment on above: Result Comment: Test performed by glucose meter. Results may be 10%-15% lower than serum/plasma values. (CLIA ID [id number]) Performed By: #### B GLU #### [facility] [address] [place] [address] Hemogram w/ Autodiffon 05-19 Abs Baso Cnt 0.1 10*3/uL Normal 0.0-0.2 [facility] Comment on above: Performed By: #### B NP3, TROPN, BMP3, HEMDF #### [facility] [address] [place] [address] Abs Neutrophile Cnt 2.1 10*3/uL Normal 1.8-7.0 [facility] Comment on above: Performed By: #### B NP3, TROPN, BMP3, HEMDF #### [facility] [address] [place] [address] Basophils/100 WBC (Bld) 1.5 % Normal 0.0-2.0 [facility] Comment on above: Performed By: #### B NP3, TROPN, BMP3, HEMDF #### [facility] [address] [place] [address] Eosinophils (Bld) [#/Vol] 0.4 10*3/uL Normal 0.0-0.5 [facility] Comment on above: Performed By: #### B NP3, TROPN, BMP3, HEMDF #### [facility] [address] [place] [address] Eosinophils/100 WBC (Bld) 10.0 % High 1.0-6.0 [facility] Comment on above: Performed By: #### B NP3, TROPN, BMP3, HEMDF #### [facility] [address] [place] [address] Erythrocyte distribution width (RBC) [Ratio] 18.2 % High 11.5-14.5 [facility] Comment on above: Performed By: #### B NP3, TROPN, BMP3, HEMDF #### [facility] [address] [place] [address] Granulocytes/100 WBC (Bld) 54.0 % Normal 40.0-80.0 [facility] Comment on above: Performed By: #### B NP3, TROPN, BMP3, HEMDF #### [facility] [address] [place] [address] Hematocrit (Bld) [Volume fraction] 34.6 % Low 40.0-52.0 [facility] Comment on above: Performed By: #### B NP3, TROPN, BMP3, HEMDF #### [facility] [address] [place] [address] Hemoglobin (Bld) [Mass/Vol] 11.4 g/dL Low 13.0-18.0 [facility] Comment on above: Performed By: #### B NP3, TROPN, BMP3, HEMDF #### [facility] [address] [place] [address] Lymphocytes (Bld) [#/Vol] 0.9 10*3/uL Low 1.0-4.3 [facility] Comment on above: Performed By: #### B NP3, TROPN, BMP3, HEMDF #### [facility] [address] [place] [address] Lymphocytes/100 WBC (Bld) 23.0 % Normal 20.0-40.0 [facility] Comment on above: Performed By: #### B NP3, TROPN, BMP3, HEMDF #### [facility] [address] [place] [address] MCH (RBC) [Entitic mass] 29.5 pg Normal 26.0-34.0 [facility] Comment on above: Performed By: #### B NP3, TROPN, BMP3, HEMDF #### [facility] [address] [place] [address] MCHC 33.0 % Normal 32.0-36.0 [facility] Comment on above: Performed By: #### B NP3, TROPN, BMP3, HEMDF #### [facility] [address] [place] [address] MCV (RBC) [Entitic vol] 89.5 fL Normal 80.0-98.0 [facility] Comment on above: Performed By: #### B NP3, TROPN, BMP3, HEMDF #### [facility] [address] [place] [address] Monocytes (Bld) [#/Vol] 0.4 10*3/uL Normal 0.0-0.8 [facility] Comment on above: Performed By: #### B NP3, TROPN, BMP3, HEMDF #### [facility] [address] [place] [address] Monocytes/100 WBC (Bld) 11.5 % High 2.0-10.0 [facility] Comment on above: Performed By: #### B NP3, TROPN, BMP3, HEMDF #### [facility] [address] [place] [address] Platelet mean volume (Bld) [Entitic vol] 8.3 fL Normal 7.4-10.4 [facility] Comment on above: Performed By: #### B NP3, TROPN, BMP3, HEMDF #### [facility] [address] [place] [address] Platelets (Bld) [#/Vol] 192 10*3/uL Normal 140-440 [facility] Comment on above: Performed By: #### B NP3, TROPN, BMP3, HEMDF #### [facility] [address] [place] [address] RBC (Bld) [#/Vol] 3.87 10*6/uL Low 4.40-5.90 [facility] Comment on above: Performed By: #### B NP3, TROPN, BMP3, HEMDF #### [facility] [address] [place] [address] WBC (Bld) [#/Vol] 3.8 10*3/uL Normal 3.6-10.7 [facility] Comment on above: Performed By: #### B NP3, TROPN, BMP3, HEMDF #### [facility] [address] [place] [address] Magnesiumon 05-19-2021 Magnesium [Mass/Vol] 1.7 mg/dL Normal 1.6-2.3 [facility] Comment on above: Performed By: #### B NP3, TROPN, BMP3, HEMDF #### [facility] [address] [place] [address] NT pro BNPon 05-19-2021 Natriuretic peptide B (Bld) [Mass/Vol] 723[address] pg/mL High 0-450 [facility] Comment on above: Performed By: #### B NP3, TROPN, BMP3, HEMDF #### [facility] [address] [place] [address] Comp Metabolic Panelon 05-18 ALP [Catalytic activity/Vol] 111 U/L Normal 38-126 [facility] Comment on above: Performed By: #### L IPD2, BMP3, MG3 #### [facility] [address] [place] [address] ALT [Catalytic activity/Vol] 19 U/L Normal 0-49 [facility] Comment on above: Result Comment: The ALT test is performed by an updated assay method. Please note that the reference intervals have been changed and are now sex specific. Performed By: #### L IPD2, BMP3, MG3 #### [facility] [address] [place] [address] Anion gap [Moles/Vol] 9 mmol/L Normal 3-13 [facility] Comment on above: Performed By: #### L IPD2, BMP3, MG3 #### [facility] [address] [place] [address] AST [Catalytic activity/Vol] 45 U/L Normal 15-46 [facility] Comment on above: Performed By: #### L IPD2, BMP3, MG3 #### [facility] [address] [place] [address] Bilirubin [Mass/Vol] 1.2 mg/dL Normal 0.2-1.3 [facility] Comment on above: Performed By: #### L IPD2, BMP3, MG3 #### [facility] [address] [place] [address] Calcium [Mass/Vol] 8.8 mg/dL Normal 8.4-10.4 [facility] Comment on above: Performed By: #### L IPD2, BMP3, MG3 #### [facility] [address] [place] [address] CO2 [Moles/Vol] 29 mmol/L Normal 22-30 [facility] Comment on above: Performed By: #### L IPD2, BMP3, MG3 #### [facility] [address] [place] [address] Glucose [Mass/Vol] 100 mg/dL Normal 70-100 [facility] Comment on above: Performed By: #### L IPD2, BMP3, MG3 #### [facility] [address] [place] [address] Protein [Mass/Vol] 6.5 g/dL Normal 6.3-8.2 [facility] Comment on above: Performed By: #### L IPD2, BMP3, MG3 #### [facility] [address] [place] [address] Urea nitrogen [Mass/Vol] 65 mg/dL High 7-17 [facility] Comment on above: Performed By: #### L IPD2, BMP3, MG3 #### [facility] [address] [place] [address] Creatinine [Mass/Vol] 2.34 mg/dL High 0.52-1.25 [facility] Comment on above: Performed By: #### L IPD2, BMP3, MG3 #### [facility] [address] [place] [address] GFR/1.73 sq M.predicted among blacks MDRD (S/P/Bld) [Vol rate/Area] 28.9 mL/min/{1.73_m2} Abnormal >60 [facility] Comment on above: Performed By: #### L IPD2, BMP3, MG3 #### [facility] [address] [place] [address] GFR/1.73 sq M.predicted among non-blacks MDRD (S/P/Bld) [Vol rate/Area] 25.0 mL/min/{1.73_m2} Abnormal >60 [facility] Comment on above: Result Comment: KDIG [...] By: #### L IPD2, BMP3, MG3 #### [facility] [address] [place] [address] Albumin [Mass/Vol] 3.6 g/dL Normal 3.5-5.0 [facility] Comment on above: Performed By: #### L IPD2, BMP3, MG3 #### [facility] [address] [place] [address] Chloride [Moles/Vol] 101 mmol/L Normal 98-107 [facility] Comment on above: Performed By: #### L IPD2, BMP3, MG3 #### [facility] [address] [place] [address] Potassium [Moles/Vol] 3.7 mmol/L Normal 3.5-5.1 [facility] Comment on above: Performed By: #### L IPD2, BMP3, MG3 #### [facility] [address] [place] [address] Sodium [Moles/Vol] 140 mmol/L Normal 135-145 [facility] Comment on above: Performed By: #### L IPD2, BMP3, MG3 #### [facility] [address] [place] [address] Glucose,Bedsideon 05-18-2021 Glucose [Mass/Vol] 145 mg/dL High 70-100 [facility] Comment on above: Result Comment: Test performed by glucose meter. Results may be 10%-15% lower than serum/plasma values. (CLIA ID [id number]) Performed By: #### L IPD2, BMP3, MG3 #### [facility] [address] [place] [address] Glucose [Mass/Vol] 116 mg/dL High 70-100 [facility] Comment on above: Result Comment: Test performed by glucose meter. Results may be 10%-15% lower than serum/plasma values. (CLIA ID [id number]) Performed By: #### L IPD2, BMP3, MG3 #### [facility] [address] [place] [address] Glucose [Mass/Vol] 165 mg/dL High 70-100 [facility] Comment on above: Result Comment: Test performed by glucose meter. Results may be 10%-15% lower than serum/plasma values. (CLIA ID [id number]) Performed By: #### B GLU #### [facility] [address] [place] [address] Glucose [Mass/Vol] 155 mg/dL High 70-100 [facility] Comment on above: Result Comment: Test performed by glucose meter. Results may be 10%-15% lower than serum/plasma values. (CLIA ID [id number]) Performed By: #### T ROPN, LACT3 #### [facility] [address] [place] [address] Hemogram w/ Autodiffon 05-18 Abs Baso Cnt 0.1 10*3/uL Normal 0.0-0.2 [facility] Comment on above: Performed By: #### L IPD2, BMP3, MG3 #### [facility] [address] [place] [address] Abs Neutrophile Cnt 2.2 10*3/uL Normal 1.8-7.0 [facility] Comment on above: Performed By: #### L IPD2, BMP3, MG3 #### [facility] [address] [place] [address] Basophils/100 WBC (Bld) 1.4 % Normal 0.0-2.0 [facility] Comment on above: Performed By: #### L IPD2, BMP3, MG3 #### [facility] [address] [place] [address] Eosinophils (Bld) [#/Vol] 0.3 10*3/uL Normal 0.0-0.5 [facility] Comment on above: Performed By: #### L IPD2, BMP3, MG3 #### [facility] [address] [place] [address] Eosinophils/100 WBC (Bld) 7.3 % High 1.0-6.0 [facility] Comment on above: Performed By: #### L IPD2, BMP3, MG3 #### [facility] [address] [place] [address] Erythrocyte distribution width (RBC) [Ratio] 18.4 % High 11.5-14.5 [facility] Comment on above: Performed By: #### L IPD2, BMP3, MG3 #### [facility] [address] [place] [address] Granulocytes/100 WBC (Bld) 57.1 % Normal 40.0-80.0 [facility] Comment on above: Performed By: #### L IPD2, BMP3, MG3 #### [facility] [address] [place] [address] Hematocrit (Bld) [Volume fraction] 34.2 % Low 40.0-52.0 [facility] Comment on above: Performed By: #### L IPD2, BMP3, MG3 #### [facility] [address] [place] [address] Hemoglobin (Bld) [Mass/Vol] 10.9 g/dL Low 13.0-18.0 [facility] Comment on above: Performed By: #### L IPD2, BMP3, MG3 #### [facility] [address] [place] [address] Lymphocytes (Bld) [#/Vol] 0.8 10*3/uL Low 1.0-4.3 [facility] Comment on above: Performed By: #### L IPD2, BMP3, MG3 #### [facility] [address] [place] [address] Lymphocytes/100 WBC (Bld) 21.4 % Normal 20.0-40.0 [facility] Comment on above: Performed By: #### L IPD2, BMP3, MG3 #### [facility] [address] [place] [address] MCH (RBC) [Entitic mass] 29.6 pg Normal 26.0-34.0 [facility] Comment on above: Performed By: #### L IPD2, BMP3, MG3 #### [facility] [address] [place] [address] MCHC 31.8 % Low 32.0-36.0 [facility] Comment on above: Performed By: #### L IPD2, BMP3, MG3 #### [facility] [address] [place] [address] MCV (RBC) [Entitic vol] 92.9 fL Normal 80.0-98.0 [facility] Comment on above: Performed By: #### L IPD2, BMP3, MG3 #### [facility] [address] [place] [id number] Monocytes (Bld) [#/Vol] 0.5 10*3/uL Normal 0.0-0.8 [facility] Comment on above: Performed By: #### L IPD2, BMP3, MG3 #### [facility] [address] [place] [address] Monocytes/100 WBC (Bld) 12.8 % High 2.0-10.0 [facility] Comment on above: Performed By: #### L IPD2, BMP3, MG3 #### [facility] [address] [place] [address] Platelet mean volume (Bld) [Entitic vol] 8.6 fL Normal 7.4-10.4 [facility] Comment on above: Performed By: #### L IPD2, BMP3, MG3 #### [facility] [address] [place] [address] Platelets (Bld) [#/Vol] 189 10*3/uL Normal 140-440 [facility] Comment on above: Performed By: #### L IPD2, BMP3, MG3 #### [facility] [address] [place] [address] RBC (Bld) [#/Vol] 3.68 10*6/uL Low 4.40-5.90 [facility] Comment on above: Performed By: #### L IPD2, BMP3, MG3 #### [facility] [address] [place] [address] WBC (Bld) [#/Vol] 3.8 10*3/uL Normal 3.6-10.7 [facility] Comment on above: Performed By: #### L IPD2, BMP3, MG3 #### [facility] [address] [place] [address] Magnesiumon 05-18-2021 Magnesium [Mass/Vol] 1.6 mg/dL Normal 1.6-2.3 [facility] Comment on above: Performed By: #### L IPD2, BMP3, MG3 #### [facility] [address] [place] [address] Comp Metabolic Panelon 05-17 ALP [Catalytic activity/Vol] 103 U/L Normal 38-126 [facility] Comment on above: Performed By: #### B NP3, TROPN, BMP3, HEMDF #### [facility] [address] [place] [address] ALT [Catalytic activity/Vol] 18 U/L Normal 0-49 [facility] Comment on above: Result Comment: The ALT test is performed by an updated assay method. Please note that the reference intervals have been changed and are now sex specific. Performed By: #### B NP3, TROPN, BMP3, HEMDF #### [facility] [address] [place] [address] Calcium [Mass/Vol] 9.0 mg/dL Normal 8.4-10.4 [facility] Comment on above: Performed By: #### B NP3, TROPN, BMP3, HEMDF #### [facility] [address] [place] [address] Glucose [Mass/Vol] 105 mg/dL High 70-100 [facility] Comment on above: Performed By: #### B NP3, TROPN, BMP3, HEMDF #### [facility] [address] [place] [address] Urea nitrogen [Mass/Vol] 68 mg/dL High 7-17 [facility] Comment on above: Performed By: #### B NP3, TROPN, BMP3, HEMDF #### [facility] [address] [place] [address] Anion gap [Moles/Vol] 8 mmol/L Normal 3-13 [facility] Comment on above: Performed By: #### B NP3, TROPN, BMP3, HEMDF #### [facility] [address] [place] [address] AST [Catalytic activity/Vol] 44 U/L Normal 15-46 [facility] Comment on above: Performed By: #### B NP3, TROPN, BMP3, HEMDF #### [facility] [address] [place] [address] Bilirubin [Mass/Vol] 1.1 mg/dL Normal 0.2-1.3 [facility] Comment on above: Performed By: #### B NP3, TROPN, BMP3, HEMDF #### [facility] [address] [place] [address] CO2 [Moles/Vol] 29 mmol/L Normal 22-30 [facility] Comment on above: Performed By: #### B NP3, TROPN, BMP3, HEMDF #### [facility] [address] [place] [address] Creatinine [Mass/Vol] 2.50 mg/dL High 0.52-1.25 [facility] Comment on above: Performed By: #### B NP3, TROPN, BMP3, HEMDF #### [facility] [address] [place] [address] GFR/1.73 sq M.predicted among blacks MDRD (S/P/Bld) [Vol rate/Area] 26.7 mL/min/{1.73_m2} Abnormal >60 [facility] Comment on above: Performed By: #### B NP3, TROPN, BMP3, HEMDF #### [facility] [address] [place] [address] GFR/1.73 sq M.predicted among non-blacks MDRD (S/P/Bld) [Vol rate/Area] 23.1 mL/min/{1.73_m2} Abnormal >60 [facility] Comment on above: Result Comment: KDIG [...] #### B NP3, TROPN, BMP3, HEMDF #### [facility] [address] [place] [address] Protein [Mass/Vol] 6.3 g/dL Normal 6.3-8.2 [facility] Comment on above: Performed By: #### B NP3, TROPN, BMP3, HEMDF #### [facility] [address] [place] [address] Chloride [Moles/Vol] 101 mmol/L Normal 98-107 [facility] Comment on above: Performed By: #### B NP3, TROPN, BMP3, HEMDF #### [facility] [address] [place] [address] Potassium [Moles/Vol] 4.0 mmol/L Normal 3.5-5.1 [facility] Comment on above: Performed By: #### B NP3, TROPN, BMP3, HEMDF #### [facility] [address] [place] [address] Sodium [Moles/Vol] 138 mmol/L Normal 135-145 [facility] Comment on above: Performed By: #### B NP3, TROPN, BMP3, HEMDF #### [facility] [address] [place] [address] Albumin [Mass/Vol] 3.4 g/dL Low 3.5-5.0 [facility] Comment on above: Performed By: #### B NP3, TROPN, BMP3, HEMDF #### [facility] [address] [place] [address] Glucose,Bedsideon 05-17-2021 Glucose [Mass/Vol] 157 mg/dL High 70-100 [facility] Comment on above: Result Comment: Test performed by glucose meter. Results may be 10%-15% lower than serum/plasma values. (CLIA ID [id number]) Performed By: #### T ROPN, LACT3 #### [facility] [address] [place] [address] Glucose [Mass/Vol] 103 mg/dL High 70-100 [facility] Comment on above: Result Comment: Test performed by glucose meter. Results may be 10%-15% lower than serum/plasma values. (CLIA ID [id number]) Performed By: #### B GLU #### [facility] [address] [place] [address] Glucose [Mass/Vol] 124 mg/dL High 70-100 [facility] Comment on above: Result Comment: Test performed by glucose meter. Results may be 10%-15% lower than serum/plasma values. (CLIA ID [id number]) Performed By: #### L IPD2, BMP3, MG3 #### [facility] [employer] [facility] [address] [place] [address] Glucose [Mass/Vol] 112 mg/dL High 70-100 [facility] Comment on above: Result Comment: Test performed by glucose meter. Results may be 10%-15% lower than serum/plasma values. (CLIA ID [id number]) Performed By: #### B NP3, TROPN, BMP3, HEMDF #### [facility] [address] [place] [address] Hemogram w/ Autodiffon 05-17 Erythrocyte distribution width (RBC) [Ratio] 18.7 % High 11.5-14.5 [facility] Comment on above: Performed By: #### B NP3, TROPN, BMP3, HEMDF #### [facility] [employer] [facility] [address] [place] [address] Hematocrit (Bld) [Volume fraction] 33.4 % Low 40.0-52.0 [facility] Comment on above: Performed By: #### B NP3, TROPN, BMP3, HEMDF #### [facility] [address] [place] [address] Hemoglobin (Bld) [Mass/Vol] 10.8 g/dL Low 13.0-18.0 [facility] Comment on above: Performed By: #### B NP3, TROPN, BMP3, HEMDF #### [facility] [address] [place] [address] MCH (RBC) [Entitic mass] 29.8 pg Normal 26.0-34.0 [facility] Comment on above: Performed By: #### B NP3, TROPN, BMP3, HEMDF #### [facility] [address] [place] [address] MCHC 32.5 % Normal 32.0-36.0 [facility] Comment on above: Performed By: #### B NP3, TROPN, BMP3, HEMDF #### [facility] [address] [place] [address] MCV (RBC) [Entitic vol] 91.7 fL Normal 80.0-98.0 [facility] Comment on above: Performed By: #### B NP3, TROPN, BMP3, HEMDF #### [facility] [address] [place] [address] Platelet mean volume (Bld) [Entitic vol] 9.1 fL Normal 7.4-10.4 [facility] Comment on above: Performed By: #### B NP3, TROPN, BMP3, HEMDF #### [facility] [address] [place] [address] Platelets (Bld) [#/Vol] 206 10*3/uL Normal 140-440 [facility] Comment on above: Performed By: #### B NP3, TROPN, BMP3, HEMDF #### [facility] [address] [place] [address] RBC (Bld) [#/Vol] 3.64 10*6/uL Low 4.40-5.90 [facility] Comment on above: Performed By: #### B NP3, TROPN, BMP3, HEMDF #### [facility] [address] [place] [address] WBC (Bld) [#/Vol] 4.0 10*3/uL Normal 3.6-10.7 [facility] Comment on above: Performed By: #### B NP3, TROPN, BMP3, HEMDF #### [facility] [address] [place] [address] Magnesiumon 05-17-2021 Magnesium [Mass/Vol] 1.7 mg/dL Normal 1.6-2.3 [facility] Comment on above: Performed By: #### B NP3, TROPN, BMP3, HEMDF #### [facility] [address] [place] [address] Manual Diffon 05-17-2021 Abs Baso Cnt 0.1 10*3/uL Normal 0.0-0.2 [facility] Comment on above: Performed By: #### B NP3, TROPN, BMP3, HEMDF #### [facility] [address] [place] [address] Abs Eosin Cnt 0.2 10*3/uL Normal 0.0-0.5 [facility] Comment on above: Performed By: #### B NP3, TROPN, BMP3, HEMDF #### [facility] [address] [place] [address] Abs Lymph Cnt 0.7 10*3/uL Low 1.1-4.5 [facility] Comment on above: Performed By: #### B NP3, TROPN, BMP3, HEMDF #### [facility] [address] [place] [address] Abs Monocyte Cnt 0.1 10*3/uL Low 0.2-1.1 [facility] Comment on above: Performed By: #### B NP3, TROPN, BMP3, HEMDF #### [facility] [address] [place] [address] Abs Neutrophile Cnt 2.9 10*3/uL Normal 2.2-8.2 [facility] Comment on above: Performed By: #### B NP3, TROPN, BMP3, HEMDF #### [facility] [address] [place] [address] Acanthocytes Slight Normal [facility] Comment on above: Performed By: #### B NP3, TROPN, BMP3, HEMDF #### [facility] [address] [place] [address] Anisocytosis Slight Normal [facility] Comment on above: Performed By: #### B NP3, TROPN, BMP3, HEMDF #### [facility] [address] [place] [address] Bands 0 % Normal 0-3 [facility] Comment on above: Performed By: #### B NP3, TROPN, BMP3, HEMDF #### [facility] [address] [place] [address] Basophils 3 % High 0-2 [facility] Comment on above: Performed By: #### B NP3, TROPN, BMP3, HEMDF #### [facility] [address] [place] [address] [place] Cells Slight Normal [facility] Comment on above: Performed By: #### B NP3, TROPN, BMP3, HEMDF #### [facility] [address] [place] [address] Cells counted 100 Normal [facility] Comment on above: Performed By: #### B NP3, TROPN, BMP3, HEMDF #### [facility] [address] [place] [address] Eosinophils 5 % Normal 1-6 [facility] Comment on above: Performed By: #### B NP3, TROPN, BMP3, HEMDF #### [facility] [address] [place] [address] Hypochromia Slight Normal [facility] Comment on above: Performed By: #### B NP3, TROPN, BMP3, HEMDF #### [facility] [address] [place] [address] Lymphocytes 17 % Low 20-40 [facility] Comment on above: Performed By: #### B NP3, TROPN, BMP3, HEMDF #### [facility] [address] [place] [address] Monocytes 3 % Normal 2-10 [facility] Comment on above: Performed By: #### B NP3, TROPN, BMP3, HEMDF #### [facility] [address] [place] [address] Ovalocytes Slight Normal [facility] Comment on above: Performed By: #### B NP3, TROPN, BMP3, HEMDF #### [facility] [address] [place] [address] Poikilocytosis Slight Normal [facility] Comment on above: Performed By: #### B NP3, TROPN, BMP3, HEMDF #### [facility] [address] [place] [address] Polychromasia Slight Normal [facility] Comment on above: Performed By: #### B NP3, TROPN, BMP3, HEMDF #### [facility] [address] [place] [address] RBC Morphology ABNORMAL Normal [facility] Comment on above: Performed By: #### B NP3, TROPN, BMP3, HEMDF #### [facility] [address] [place] [address] Seg Neutrophils 72 % Normal 40-80 [facility] Comment on above: Performed By: #### B NP3, TROPN, BMP3, HEMDF #### [facility] [address] [place] [address] Tear Drop Forms Slight Normal [facility] Comment on above: Performed By: #### B NP3, TROPN, BMP3, HEMDF #### [facility] [address] [place] [address] Basic Metabolic Panelon 10-2 Calcium [Mass/Vol] 9.8 mg/dL Normal 8.4-10.4 [facility] Comment on above: Performed By: #### T ROPN, LACT3 #### [facility] [address] [place] [address] Anion gap [Moles/Vol] 12 mmol/L Normal 3-13 [facility] Comment on above: Performed By: #### T ROPN, LACT3 #### [facility] [address] [place] [address] CO2 [Moles/Vol] 27 mmol/L Normal 22-30 [facility] Comment on above: Performed By: #### T ROPN, LACT3 #### [facility] [address] [place] [address] Creatinine [Mass/Vol] 2.67 mg/dL High 0.52-1.25 [facility] Comment on above: Performed By: #### T CHELEN, LACT3 #### [facility] [address] [place] [address] GFR/1.73 sq M.predicted among blacks MDRD (S/P/Bld) [Vol rate/Area] 24.7 mL/min/{1.73_m2} Abnormal >60 [facility] Comment on above: Performed By: #### T CASSY, LACT3 #### [facility] [address] [place] [address] GFR/1.73 sq M.predicted among non-blacks MDRD (S/P/Bld) [Vol rate/Area] 21.3 mL/min/{1.73_m2} Abnormal >60 [facility] Comment on above: Result Comment: KDIG [...] Performed By: #### T CASSY LACT3 #### [facility] [address] [place] [address] Glucose [Mass/Vol] 91 mg/dL Normal 70-100 [facility] Comment on above: Performed By: #### T CHELEN, LACT3 #### [facility] [address] [place] [address] Urea nitrogen [Mass/Vol] 70 mg/dL High 7-17 [facility] Comment on above: Performed By: #### T ROPN, LACT3 #### [facility] [address] [place] [address] Chloride [Moles/Vol] 102 mmol/L Normal 98-107 [facility] Comment on above: Performed By: #### T ROPN, LACT3 #### [facility] [address] [place] [address] Potassium [Moles/Vol] 4.4 mmol/L Normal 3.5-5.1 [facility] Comment on above: Performed By: #### T ROPN, LACT3 #### [facility] [address] [place] [address] Sodium [Moles/Vol] 140 mmol/L Normal 135-145 [facility] Comment on above: Performed By: #### T ROPN, LACT3 #### [facility] [address] [place] [address] Glucose,Bedsideon 05-16-2021 Glucose [Mass/Vol] 88 mg/dL Normal 70-100 [facility] Comment on above: Result Comment: Test performed by glucose meter. Results may be 10%-15% lower than serum/plasma values. (CLIA ID [id number]) Performed By: #### B GLU #### [facility] [address] [place] [address] Glucose [Mass/Vol] 145 mg/dL High 70-100 [facility] Comment on above: Result Comment: Test performed by glucose meter. Results may be 10%-15% lower than serum/plasma values. (CLIA ID [id number]) Performed By: #### T ROPN, LACT3 #### [facility] [address] [place] [address] Glucose [Mass/Vol] 83 mg/dL Normal 70-100 [facility] Comment on above: Result Comment: Test performed by glucose meter. Results may be 10%-15% lower than serum/plasma values. (CLIA ID [id number]) Performed By: #### T ROPN, LACT3 #### [facility] [address] [place] [address] Hemogram w/ Autodiffon 05-16 Abs Baso Cnt 0.1 10*3/uL Normal 0.0-0.2 [facility] Comment on above: Performed By: #### Larissa MADERA LACT3 #### [facility] [address] [place] [address] Abs Neutrophile Cnt 2.6 10*3/uL Normal 1.8-7.0 [facility] Comment on above: Performed By: #### Larissa MADERA LACT3 #### [facility] [address] [place] [address] Basophils/100 WBC (Bld) 1.8 % Normal 0.0-2.0 [facility] Comment on above: Performed By: #### Larissa MADERA LACT3 #### [facility] [address] [place] [address] Eosinophils (Bld) [#/Vol] 0.3 10*3/uL Normal 0.0-0.5 [facility] Comment on above: Performed By: #### Larissa MADERA LACT3 #### [facility] [address] [place] [address] Eosinophils/100 WBC (Bld) 6.2 % High 1.0-6.0 [facility] Comment on above: Performed By: #### Larissa MADERA LACT3 #### [facility] [address] [place] [address] Erythrocyte distribution width (RBC) [Ratio] 18.8 % High 11.5-14.5 [facility] Comment on above: Performed By: #### Larissa MADERA LACT3 #### [facility] [address] [place] [address] Granulocytes/100 WBC (Bld) 62.7 % Normal 40.0-80.0 [facility] Comment on above: Performed By: #### Larissa MADERA LACT3 #### [facility] [address] [place] [address] Hematocrit (Bld) [Volume fraction] 38.4 % Low 40.0-52.0 [facility] Comment on above: Performed By: #### Larissa MADERA LACT3 #### [facility] [address] [place] [address] Hemoglobin (Bld) [Mass/Vol] 12.7 g/dL Low 13.0-18.0 [facility] Comment on above: Performed By: #### Larissa MADERA LACT3 #### [facility] [address] [place] [address] Lymphocytes (Bld) [#/Vol] 0.7 10*3/uL Low 1.0-4.3 [facility] Comment on above: Performed By: #### Larissa MADERA LACT3 #### [facility] [address] [place] [address] Lymphocytes/100 WBC (Bld) 17.9 % Low 20.0-40.0 [facility] Comment on above: Performed By: #### Larissa MADERA LACT3 #### [facility] [address] [place] [address] MCH (RBC) [Entitic mass] 30.3 pg Normal 26.0-34.0 [facility] Comment on above: Performed By: #### Larissa MADERA LACT3 #### [facility] [address] [place] [address] MCHC 33.1 % Normal 32.0-36.0 [facility] Comment on above: Performed By: #### Larissa MADERA LACT3 #### [facility] [address] [place] [address] MCV (RBC) [Entitic vol] 91.5 fL Normal 80.0-98.0 [facility] Comment on above: Performed By: #### Larissa MADERA LACT3 #### [facility] [address] [place] [address] Monocytes (Bld) [#/Vol] 0.5 10*3/uL Normal 0.0-0.8 [facility] Comment on above: Performed By: #### Larissa MADERA, LACT3 #### [facility] [address] [place] [address] Monocytes/100 WBC (Bld) 11.4 % High 2.0-10.0 [facility] Comment on above: Performed By: #### Larissa MADERA LACT3 #### [facility] [address] [place] [address] Platelet mean volume (Bld) [Entitic vol] 8.6 fL Normal 7.4-10.4 [facility] Comment on above: Performed By: #### Larissa MADERA LACT3 #### [facility] [address] [place] [address] Platelets (Bld) [#/Vol] 204 10*3/uL Normal 140-440 [facility] Comment on above: Performed By: #### Larissa MADERA LACT3 #### [facility] [address] [place] [address] RBC (Bld) [#/Vol] 4.20 10*6/uL Low 4.40-5.90 [facility] Comment on above: Performed By: #### Larissa MADERA LACT3 #### [facility] [address] [place] [address] WBC (Bld) [#/Vol] 4.2 10*3/uL Normal 3.6-10.7 [facility] Comment on above: Performed By: #### Larissa MADERA LACT3 #### [facility] [address] [place] [address] Magnesiumon 05-16-2021 Magnesium [Mass/Vol] 1.7 mg/dL Normal 1.6-2.3 [facility] Comment on above: Performed By: #### Larissa MADERA LACT3 #### [facility] [address] [place] [address] NT pro BNPon 05-16-2021 Natriuretic peptide B (Bld) [Mass/Vol] 948[address] pg/mL High 0-450 [facility] Comment on above: Performed By: #### Larissa MADERA LACT3 #### [facility] [address] [place] [address] Basic Metabolic Panelon 04-21 Calcium [Mass/Vol] 9.7 mg/dL Normal 8.4-10.4 [facility] Comment on above: Performed By: #### B GLU #### [facility] [address] [place] [address] Glucose [Mass/Vol] 84 mg/dL Normal 70-100 [facility] Comment on above: Performed By: #### B GLU #### [facility] [address] [place] [address] Urea nitrogen [Mass/Vol] 67 mg/dL High 7-17 [facility] Comment on above: Performed By: #### B GLU #### [facility] [address] [place] [address] Anion gap [Moles/Vol] 15 mmol/L High 3-13 [facility] Comment on above: Performed By: #### B GLU #### [facility] [address] [place] [address] CO2 [Moles/Vol] 25 mmol/L Normal 22-30 [facility] Comment on above: Performed By: #### B GLU #### [facility] [address] [place] [address] Creatinine [Mass/Vol] 2.84 mg/dL High 0.52-1.25 [facility] Comment on above: Performed By: #### B GLU #### [facility] [address] [place] [address] GFR/1.73 sq M.predicted among blacks MDRD (S/P/Bld) [Vol rate/Area] 22.9 mL/min/{1.73_m2} Abnormal >60 [facility] Comment on above: Performed By: #### B GLU #### [facility] [address] [place] [address] GFR/1.73 sq M.predicted among non-blacks MDRD (S/P/Bld) [Vol rate/Area] 19.8 mL/min/{1.73_m2} Abnormal >60 [facility] Comment on above: Result Comment: KDIG [...] secretion. Performed By: #### B GLU #### [facility] [address] [place] [address] Potassium [Moles/Vol] 4.6 mmol/L Normal 3.5-5.1 [facility] Comment on above: Performed By: #### B GLU #### [facility] [address] [place] [address] Chloride [Moles/Vol] 99 mmol/L Normal 98-107 [facility] Comment on above: Performed By: #### B GLU #### [facility] [address] [place] [address] Sodium [Moles/Vol] 139 mmol/L Normal 135-145 [facility] Comment on above: Performed By: #### B GLU #### [facility] [address] [place] [address] Glucose,Bedsideon 05-15-2021 Glucose [Mass/Vol] 81 mg/dL Normal 70-100 [facility] Comment on above: Result Comment: Test performed by glucose meter. Results may be 10%-15% lower than serum/plasma values. (CLIA ID [id number]) Performed By: #### B GLU #### [facility] [address] [place] [address] Glucose [Mass/Vol] 83 mg/dL Normal 70-100 [facility] Comment on above: Result Comment: Test performed by glucose meter. Results may be 10%-15% lower than serum/plasma values. (CLIA ID [id number]) Performed By: #### L IPD2, BMP3, MG3 #### [facility] [address] [place] [address] Glucose [Mass/Vol] 88 mg/dL Normal 70-100 [facility] Comment on above: Result Comment: Test performed by glucose meter. Results may be 10%-15% lower than serum/plasma values. (CLIA ID [id number]) Performed By: #### T ROPN, LACT3 #### [facility] [address] [place] [address] Glucose [Mass/Vol] 70 mg/dL Normal 70-100 [facility] Comment on above: Result Comment: Test performed by glucose meter. Results may be 10%-15% lower than serum/plasma values. (CLIA ID [id number]) Performed By: #### T CASSY LACT3 #### [facility] [address] [place] [address] Hemogram w/ Autodiffon 05-15 Abs Baso Cnt 0.1 10*3/uL Normal 0.0-0.2 [facility] Comment on above: Performed By: #### B GLU #### [facility] [address] [place] [address] Abs Neutrophile Cnt 2.7 10*3/uL Normal 1.8-7.0 [facility] Comment on above: Performed By: #### B GLU #### [facility] [address] [place] [address] Basophils/100 WBC (Bld) 1.7 % Normal 0.0-2.0 [facility] Comment on above: Performed By: #### B GLU #### [facility] [address] [place] [address] Eosinophils (Bld) [#/Vol] 0.2 10*3/uL Normal 0.0-0.5 [facility] Comment on above: Performed By: #### B GLU #### [facility] [address] [place] [address] Eosinophils/100 WBC (Bld) 3.5 % Normal 1.0-6.0 [facility] Comment on above: Performed By: #### B GLU #### [facility] [address] [place] [address] Erythrocyte distribution width (RBC) [Ratio] 18.8 % High 11.5-14.5 [facility] Comment on above: Performed By: #### B GLU #### [facility] [address] [place] [address] Granulocytes/100 WBC (Bld) 59.1 % Normal 40.0-80.0 [facility] Comment on above: Performed By: #### B GLU #### [facility] [address] [place] [address] Hematocrit (Bld) [Volume fraction] 40.7 % Normal 40.0-52.0 [facility] Comment on above: Performed By: #### B GLU #### [facility] [address] [place] [address] Hemoglobin (Bld) [Mass/Vol] 13.0 g/dL Normal 13.0-18.0 [facility] Comment on above: Performed By: #### B GLU #### [facility] [address] [place] [address] Lymphocytes (Bld) [#/Vol] 1.0 10*3/uL Normal 1.0-4.3 [facility] Comment on above: Performed By: #### B GLU #### [facility] [address] [place] [address] Lymphocytes/100 WBC (Bld) 21.9 % Normal 20.0-40.0 [facility] Comment on above: Performed By: #### B GLU #### [facility] [address] [place] [address] MCH (RBC) [Entitic mass] 29.8 pg Normal 26.0-34.0 [facility] Comment on above: Performed By: #### B GLU #### [facility] [address] [place] [address] MCHC 31.9 % Low 32.0-36.0 [facility] Comment on above: Performed By: #### B GLU #### [facility] [address] [place] [address] MCV (RBC) [Entitic vol] 93.2 fL Normal 80.0-98.0 [facility] Comment on above: Performed By: #### B GLU #### [facility] [address] [place] [address] Monocytes (Bld) [#/Vol] 0.6 10*3/uL Normal 0.0-0.8 [facility] Comment on above: Performed By: #### B GLU #### [facility] [address] [place] [address] Monocytes/100 WBC (Bld) 13.8 % High 2.0-10.0 [facility] Comment on above: Performed By: #### B GLU #### [facility] [address] [place] [address] Platelet mean volume (Bld) [Entitic vol] 8.7 fL Normal 7.4-10.4 [facility] Comment on above: Performed By: #### B GLU #### [facility] [address] [place] [address] Platelets (Bld) [#/Vol] 227 10*3/uL Normal 140-440 [facility] Comment on above: Performed By: #### B GLU #### [facility] [address] [place] [address] RBC (Bld) [#/Vol] 4.37 10*6/uL Low 4.40-5.90 [facility] Comment on above: Performed By: #### B GLU #### [facility] [address] [place] [address] WBC (Bld) [#/Vol] 4.6 10*3/uL Normal 3.6-10.7 [facility] Comment on above: Performed By: #### B GLU #### [facility] [address] [place] [address] Magnesiumon 05-15-2021 Magnesium [Mass/Vol] 1.6 mg/dL Normal 1.6-2.3 [facility] Comment on above: Performed By: #### B GLU #### [facility] [address] [place] [address] Basic Metabolic Panelon 04-21 Calcium [Mass/Vol] 9.7 mg/dL Normal 8.4-10.4 [facility] Comment on above: Performed By: #### L IPD2, BMP3, MG3 #### [facility] [address] [place] [address] Glucose [Mass/Vol] 111 mg/dL High 70-100 [facility] Comment on above: Performed By: #### L IPD2, BMP3, MG3 #### [facility] [address] [place] [address] Urea nitrogen [Mass/Vol] 64 mg/dL High 7-17 [facility] Comment on above: Performed By: #### L IPD2, BMP3, MG3 #### [facility] [address] [place] [address] Anion gap [Moles/Vol] 14 mmol/L High 3-13 [facility] Comment on above: Performed By: #### L IPD2, BMP3, MG3 #### [facility] [address] [place] [address] CO2 [Moles/Vol] 25 mmol/L Normal 22-30 [facility] Comment on above: Performed By: #### L IPD2, BMP3, MG3 #### [facility] [address] [place] [address] Creatinine [Mass/Vol] 2.95 mg/dL High 0.52-1.25 [facility] Comment on above: Performed By: #### L IPD2, BMP3, MG3 #### [facility] [address] [place] [address] GFR/1.73 sq M.predicted among blacks MDRD (S/P/Bld) [Vol rate/Area] 21.9 mL/min/{1.73_m2} Abnormal >60 [facility] Comment on above: Performed By: #### L IPD2, BMP3, MG3 #### [facility] [address] [place] [address] GFR/1.73 sq M.predicted among non-blacks MDRD (S/P/Bld) [Vol rate/Area] 18.9 mL/min/{1.73_m2} Abnormal >60 [facility] Comment on above: Result Comment: KDIG [...] By: #### L IPD2, BMP3, MG3 #### [facility] [address] [place] [address] Potassium [Moles/Vol] 4.1 mmol/L Normal 3.5-5.1 [facility] Comment on above: Performed By: #### L IPD2, BMP3, MG3 #### [facility] [address] [place] [address] Chloride [Moles/Vol] 103 mmol/L Normal 98-107 [facility] Comment on above: Performed By: #### L IPD2, BMP3, MG3 #### [facility] [address] [place] [address] Sodium [Moles/Vol] 142 mmol/L Normal 135-145 [facility] Comment on above: Performed By: #### L IPD2, BMP3, MG3 #### [facility] [address] [place] [address] Glucose,Bedsideon 05-14-2021 Glucose [Mass/Vol] 115 mg/dL High 70-100 [facility] Comment on above: Result Comment: Test performed by glucose meter. Results may be 10%-15% lower than serum/plasma values. (CLIA ID [id number]) Performed By: #### B GLU #### [facility] [address] [place] [address] Glucose [Mass/Vol] 93 mg/dL Normal 70-100 [facility] Comment on above: Result Comment: Test performed by glucose meter. Results may be 10%-15% lower than serum/plasma values. (CLIA ID [id number]) Performed By: #### L IPD2, BMP3, MG3 #### [facility] [address] [place] [address] Glucose [Mass/Vol] 141 mg/dL High 70-100 [facility] Comment on above: Result Comment: Test performed by glucose meter. Results may be 10%-15% lower than serum/plasma values. (CLIA ID [id number]) Performed By: #### B GLU #### [facility] [address] [place] [address] Glucose [Mass/Vol] 114 mg/dL High 70-100 [facility] Comment on above: Result Comment: Test performed by glucose meter. Results may be 10%-15% lower than serum/plasma values. (CLIA ID [id number]) Performed By: #### B GLU #### [facility] [address] [place] [address] Glucose [Mass/Vol] 96 mg/dL Normal 70-100 [facility] Comment on above: Result Comment: Test performed by glucose meter. Results may be 10%-15% lower than serum/plasma values. (CLIA ID [id number]) Performed By: #### B NP3, TROPN, BMP3, HEMDF #### [facility] [address] [place] [address] Glucose [Mass/Vol] 62 mg/dL Low 70-100 [facility] Comment on above: Result Comment: Test performed by glucose meter. Results may be 10%-15% lower than serum/plasma values. (CLIA ID [id number]) Performed By: #### L IPD2, BMP3, MG3 #### [facility] [address] [place] [address] Lipid Panelon 05-14-2021 Chol/HDL 5 Normal [facility] Comment on above: Result Comment: Ref Range: < 3 Low Risk for CHD 3-6 Mod Risk for CHD > 6 High Risk for CHD Performed By: #### L IPD2, BMP3, MG3 #### [facility] [address] [place] [address] Cholesterol in HDL [Mass/Vol] 34 mg/dL Low 40-60 [facility] Comment on above: Performed By: #### L IPD2, BMP3, MG3 #### [facility] [address] [place] [address] Low Density Lipoprotein 110 mg/dL Abnormal <100 [facility] Comment on above: Performed By: #### L IPD2, BMP3, MG3 #### [facility] [address] [place] [address] Triglyceride [Mass/Vol] 109 mg/dL Normal <150 [facility] Comment on above: Performed By: #### L IPD2, BMP3, MG3 #### [facility] [address] [place] [address] Cholesterol [Mass/Vol] 166 mg/dL Normal < 200 [facility] Comment on above: Performed By: #### L IPD2, BMP3, MG3 #### [facility] [address] [place] [address] Magnesiumon 05-14-2021 Magnesium [Mass/Vol] 1.5 mg/dL Low 1.6-2.3 [facility] Comment on above: Performed By: #### L IPD2, BMP3, MG3 #### [facility] [address] [place] [address] Troponin Ion 05-14-2021 Troponin I.cardiac [Mass/Vol] 0.029 ng/mL Normal 0.000-0.034 [facility] Comment on above: Result Comment: . Performed By: #### B GLU #### [facility] [address] [place] [address] Troponin I.cardiac [Mass/Vol] 0.029 ng/mL Normal 0.000-0.034 [facility] Comment on above: Result Comment: . Performed By: #### L IPD2, BMP3, MG3 #### [facility] [address] [place] [address] Troponin I.cardiac [Mass/Vol] 0.033 ng/mL Normal 0.000-0.034 [facility] Comment on above: Result Comment: . Performed By: #### B NP3, TROPN, BMP3, HEMDF #### [facility] [address] [place] [address] VL Venous Duplex US Lower Ex t Bilateralon 05-14-2021 VL Venous Duplex US Lower Ext Bilateral Patient Name: MEGAN NASCIMENTO Ultrasound ACCESSION EXAM DATE/TIME PROCEDURE ORDERING PROVIDER [id number] 05/14/2021 09:25 EDT VL Venous Duplex US MD HARLEY PRAMOD Lower Ext Bilateral CPT code 80576 Reason For Exam (VL Venous Duplex US Lower Ext Bilateral) LE edema Report [facility] Lower Extremity Venous Duplex Report Patient Azam, : 1940 Study 05/14/2021 Name: Megan Higuera (80yrs) Date: Patient [id number] Age: 80 Account: [id number] ID: Gender: M Loc: 444 BP: Ordering Physician: Gregg Harley Cleaning Machine Operator: Nohemi Davenport RDMS, T Interpreting Physician: Paz Nielson MD Location: [facility] Indications: Edema of the bilateral lower [...] supine position. Images were obtained using a Freedom2 E9 vascular ultrasound machine. Ultrasound Report Venous [...] + + (more content not included)... Normal [facility] Basic Metabolic Panelon 10-2 Anion gap [Moles/Vol] 14 mmol/L High 3-13 [facility] Comment on above: Performed By: #### B NP3, TROPN, BMP3, HEMDF #### [facility] [address] [place] [address] Calcium [Mass/Vol] 9.6 mg/dL Normal 8.4-10.4 [facility] Comment on above: Performed By: #### B NP3, TROPN, BMP3, HEMDF #### [facility] [address] [place] [address] CO2 [Moles/Vol] 27 mmol/L Normal 22-30 [facility] Comment on above: Performed By: #### B NP3, TROPN, BMP3, HEMDF #### [facility] [address] [place] [address] Glucose [Mass/Vol] 105 mg/dL High 70-100 [facility] Comment on above: Performed By: #### B NP3, TROPN, BMP3, HEMDF #### [facility] [address] [place] [address] Urea nitrogen [Mass/Vol] 65 mg/dL High 7-17 [facility] Comment on above: Performed By: #### B NP3, TROPN, BMP3, HEMDF #### [facility] [address] [place] [address] Creatinine [Mass/Vol] 2.93 mg/dL High 0.52-1.25 [facility] Comment on above: Performed By: #### B NP3, TROPN, BMP3, HEMDF #### [facility] [address] [place] [address] GFR/1.73 sq M.predicted among blacks MDRD (S/P/Bld) [Vol rate/Area] 22.1 mL/min/{1.73_m2} Abnormal >60 [facility] Comment on above: Performed By: #### B NP3, TROPN, BMP3, HEMDF #### [facility] [address] [place] [address] GFR/1.73 sq M.predicted among non-blacks MDRD (S/P/Bld) [Vol rate/Area] 19.0 mL/min/{1.73_m2} Abnormal >60 [facility] Comment on above: Result Comment: KDIG [...] #### B NP3, TROPN, BMP3, HEMDF #### [facility] [address] [place] [address] Potassium [Moles/Vol] 4.2 mmol/L Normal 3.5-5.1 [facility] Comment on above: Performed By: #### B NP3, TROPN, BMP3, HEMDF #### [facility] [address] [place] [address] Chloride [Moles/Vol] 102 mmol/L Normal 98-107 [facility] Comment on above: Performed By: #### B NP3, TROPN, BMP3, HEMDF #### [facility] [address] [place] [address] Sodium [Moles/Vol] 144 mmol/L Normal 135-145 [facility] Comment on above: Performed By: #### B NP3, TROPN, BMP3, HEMDF #### [facility] [address] [place] [address] CR Chest Portableon 05-13-20 21 CR Chest Portable Patient Name: MEGAN NASCIMENTO Diagnostic Radiology ACCESSION EXAM DATE/TIME PROCEDURE ORDERING PROVIDER [id number] 05/13/2021 18:14 EDT CR Chest Portable [id number] NATALY VEGA CPT code 17551 Reason For Exam (CR Chest Portable) SOB [...] Transcribed Date and Time: 05/13/2021 6:42 Normal [facility] Complete Urinalysison 2020 Appearance (U) Clear Normal Clear [facility] Comment on above: Result Comment: . Performed By: #### B NP3, TROPN, BMP3, HEMDF #### [facility] [address] [place] [address] Bilirubin,Urine Negative Normal Negative [facility] Comment on above: Result Comment: . Performed By: #### B NP3, TROPN, BMP3, HEMDF #### [facility] [address] [place] [address] Color (U) Yellow Normal Lt. Yellow [facility] Comment on above: Result Comment: . Performed By: #### B NP3, TROPN, BMP3, HEMDF #### [facility] [address] [place] [address] Glucose Ql (U) Normal Normal Normal (<70) [facility] Comment on above: Result Comment: . Performed By: #### B NP3, TROPN, BMP3, HEMDF #### [facility] [address] [place] [address] Ketone,Urine Negative Normal Negative [facility] Comment on above: Result Comment: . Performed By: #### B NP3, TROPN, BMP3, HEMDF #### [facility] [address] [place] [address] Leukocytes,Urine Negative Normal Negative [facility] Comment on above: Result Comment: . Performed By: #### B NP3, TROPN, BMP3, HEMDF #### [facility] [address] [place] [address] Nitrites,Urine Negative Normal Negative [facility] Comment on above: Result Comment: . Performed By: #### B NP3, TROPN, BMP3, HEMDF #### [facility] [address] [place] [address] Occult Blood,Urine Negative Normal Negative [facility] Comment on above: Result Comment: . Performed By: #### B NP3, TROPN, BMP3, HEMDF #### [facility] [address] [place] [address] pH,Urine 5.0 Normal 5.0-8.0 [facility] Comment on above: Result Comment: . Performed By: #### B NP3, TROPN, BMP3, HEMDF #### [facility] [address] [place] [address] Specific [place],Urine 1.012 Normal 1.005 - 1.030 [facility] Comment on above: Result Comment: . Performed By: #### B NP3, TROPN, BMP3, HEMDF #### [facility] [address] [place] [address] Total Protein,Urine Negative Normal Negative [facility] Comment on above: Result Comment: . Performed By: #### B NP3, TROPN, BMP3, HEMDF #### [facility] [address] [place] [address] Urobilinogen,Urine Normal Normal Normal (0-1) [facility] Comment on above: Result Comment: . Performed By: #### B NP3, TROPN, BMP3, HEMDF #### [facility] [address] [place] [address] ED Provider Noteon 1 ED Provider Note [...] patient's emergency department visit, please see the [facility] provider's documentation. Jadon Lora, 05/15/21 0410 [facility] ED Provider Note Emergency Department Encounter [facility] ED Patient: Megan Nascimento : 1940 Date of Evaluation: 05/13/2021 ED Provider: DASIA Dorado EDcare was supervised by Dr. Lora who independently examined and evaluated the patient. Please see their attestation note for further details. Chief Complaint Chief Complaint Patient presents with ? Urinary Retention ? 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 Lucas was okay with that because [...] otherwise acutely negative except as in the [place]. Past History Past Medical History: Diagnosis Date [...] Gatherings with Friends and Family: ? Attends [employer] Services: ? Active Member of Clubs or [...] Inhale 2 (more content not included)... Normal [facility] Hemogram w/ Autodiffon 05-13 Abs Baso Cnt 0.0 10*3/uL Normal 0.0-0.2 [facility] Comment on above: Performed By: #### B NP3, TROPN, BMP3, HEMDF #### [facility] [address] [place] [address] Abs Neutrophile Cnt 3.5 10*3/uL Normal 1.8-7.0 [facility] Comment on above: Performed By: #### B NP3, TROPN, BMP3, HEMDF #### [facility] [address] [place] [address] Basophils/100 WBC (Bld) 0.8 % Normal 0.0-2.0 [facility] Comment on above: Performed By: #### B NP3, TROPN, BMP3, HEMDF #### [facility] [address] [place] [address] Eosinophils (Bld) [#/Vol] 0.3 10*3/uL Normal 0.0-0.5 [facility] Comment on above: Performed By: #### B NP3, TROPN, BMP3, HEMDF #### [facility] [address] [place] [address] Eosinophils/100 WBC (Bld) 5.9 % Normal 1.0-6.0 [facility] Comment on above: Performed By: #### B NP3, TROPN, BMP3, HEMDF #### [facility] [address] [place] [address] Erythrocyte distribution width (RBC) [Ratio] 18.3 % High 11.5-14.5 [facility] Comment on above: Performed By: #### B NP3, TROPN, BMP3, HEMDF #### [facility] [address] [place] [address] Granulocytes/100 WBC (Bld) 69.0 % Normal 40.0-80.0 [facility] Comment on above: Performed By: #### B NP3, TROPN, BMP3, HEMDF #### [facility] [address] [place] [address] Hematocrit (Bld) [Volume fraction] 37.8 % Low 40.0-52.0 [facility] Comment on above: Performed By: #### B NP3, TROPN, BMP3, HEMDF #### [facility] [address] [place] [address] Hemoglobin (Bld) [Mass/Vol] 12.2 g/dL Low 13.0-18.0 [facility] Comment on above: Performed By: #### B NP3, TROPN, BMP3, HEMDF #### [facility] [address] [place] [address] Lymphocytes (Bld) [#/Vol] 0.8 10*3/uL Low 1.0-4.3 [facility] Comment on above: Performed By: #### B NP3, TROPN, BMP3, HEMDF #### [facility] [address] [place] [address] Lymphocytes/100 WBC (Bld) 14.9 % Low 20.0-40.0 [facility] Comment on above: Performed By: #### B NP3, TROPN, BMP3, HEMDF #### [facility] [address] [place] [address] MCH (RBC) [Entitic mass] 29.7 pg Normal 26.0-34.0 [facility] Comment on above: Performed By: #### B NP3, TROPN, BMP3, HEMDF #### [facility] [address] [place] [address] MCHC 32.3 % Normal 32.0-36.0 [facility] Comment on above: Performed By: #### B NP3, TROPN, BMP3, HEMDF #### [facility] [address] [place] [address] MCV (RBC) [Entitic vol] 92.1 fL Normal 80.0-98.0 [facility] Comment on above: Performed By: #### B NP3, TROPN, BMP3, HEMDF #### [facility] [address] [place] [address] Monocytes (Bld) [#/Vol] 0.5 10*3/uL Normal 0.0-0.8 [facility] Comment on above: Performed By: #### B NP3, TROPN, BMP3, HEMDF #### [facility] [address] [place] [address] Monocytes/100 WBC (Bld) 9.4 % Normal 2.0-10.0 [facility] Comment on above: Performed By: #### B NP3, TROPN, BMP3, HEMDF #### [facility] [address] [place] [address] Platelet mean volume (Bld) [Entitic vol] 9.1 fL Normal 7.4-10.4 [facility] Comment on above: Performed By: #### B NP3, TROPN, BMP3, HEMDF #### [facility] [address] [place] [address] Platelets (Bld) [#/Vol] 252 10*3/uL Normal 140-440 [facility] Comment on above: Performed By: #### B NP3, TROPN, BMP3, HEMDF #### [facility] [address] [place] [address] RBC (Bld) [#/Vol] 4.11 10*6/uL Low 4.40-5.90 [facility] Comment on above: Performed By: #### B NP3, TROPN, BMP3, HEMDF #### [facility] [address] [place] [address] WBC (Bld) [#/Vol] 5.1 10*3/uL Normal 3.6-10.7 [facility] Comment on above: Performed By: #### B NP3, TROPN, BMP3, HEMDF #### [facility] [address] [place] [address] NT pro BNPon 05-13-2021 Natriuretic peptide B (Bld) [Mass/Vol] 02355 pg/mL High 0-450 [facility] Comment on above: Performed By: #### B NP3, TROPN, BMP3, HEMDF #### [facility] [address] [place] [address] Troponin Ion 05-13-2021 Troponin I.cardiac [Mass/Vol] 0.035 ng/mL High 0.000-0.034 [facility] Comment on above: Result Comment: . Performed By: #### B NP3, TROPN, BMP3, HEMDF #### [facility] [address] [place] [address] CULTURE BLOODon 02-04-2021 Microscopic examination of blood, culture CULTURE BLOOD --> Status: F No growth at 5 days. Normal [facility] Comment on above: Performed By: #### B NP3, TROPN, BMP3, HEMDF #### [facility] [address] [place] [address] CULTURE BLOOD (Two)on 2020 Microscopic examination of blood, culture CULTURE BLOOD (Two) --> Status: F No growth at 5 days. [facility] Comment on above: Performed By: #### B GLU #### [facility] [address] [place] [address] Basic Metabolic Panelon 01-18 Anion gap [Moles/Vol] 6 mmol/L Normal 3-13 [facility] Comment on above: Performed By: #### B GLU #### [facility] [address] [place] [address] Calcium [Mass/Vol] 9.2 mg/dL Normal 8.4-10.4 [facility] Comment on above: Performed By: #### B GLU #### [facility] [address] [place] [address] CO2 [Moles/Vol] 34 mmol/L High 22-30 [facility] Comment on above: Performed By: #### B GLU #### [facility] [address] [place] [address] Glucose [Mass/Vol] 84 mg/dL Normal 70-100 [facility] Comment on above: Performed By: #### B GLU #### [facility] [address] [place] [address] Urea nitrogen [Mass/Vol] 49 mg/dL High 7-20 [facility] Comment on above: Performed By: #### B GLU #### [facility] [address] [place] [address] Creatinine [Mass/Vol] 2.60 mg/dL High 0.52-1.25 [facility] Comment on above: Performed By: #### B GLU #### [facility] [address] [place] [address] GFR/1.73 sq M.predicted among blacks MDRD (S/P/Bld) [Vol rate/Area] 25.5 mL/min/{1.73_m2} Abnormal >60 [facility] Comment on above: Performed By: #### B GLU #### [facility] [address] [place] [address] GFR/1.73 sq M.predicted among non-blacks MDRD (S/P/Bld) [Vol rate/Area] 22.0 mL/min/{1.73_m2} Abnormal >60 [facility] Comment on above: Result Comment: KDIG [...] secretion. Performed By: #### B GLU #### [facility] [address] [place] [address] Potassium [Moles/Vol] 3.1 mmol/L Low 3.5-5.1 [facility] Comment on above: Performed By: #### B GLU #### [facility] [address] [place] [address] Sodium [Moles/Vol] 135 mmol/L Normal 135-145 [facility] Comment on above: Performed By: #### B GLU #### [facility] [address] [place] [address] Chloride [Moles/Vol] 95 mmol/L Low 98-107 [facility] Comment on above: Performed By: #### B GLU #### [facility] [address] [place] [address] Hemogram w/ Autodiffon 02-01 Abs Baso Cnt 0.1 10*3/uL Normal 0.0-0.2 [facility] Comment on above: Performed By: #### B GLU #### [facility] [address] [place] [address] Abs Neutrophile Cnt 2.8 10*3/uL Normal 1.8-7.0 [facility] Comment on above: Performed By: #### B GLU #### [facility] [address] [place] [address] Basophils/100 WBC (Bld) 2.0 % Normal 0.0-2.0 [facility] Comment on above: Performed By: #### B GLU #### [facility] [address] [place] [address] Eosinophils (Bld) [#/Vol] 0.4 10*3/uL Normal 0.0-0.5 [facility] Comment on above: Performed By: #### B GLU #### [facility] [address] [place] [address] Eosinophils/100 WBC (Bld) 9.1 % High 1.0-6.0 [facility] Comment on above: Performed By: #### B GLU #### [facility] [address] [place] [address] Erythrocyte distribution width (RBC) [Ratio] 17.4 % High 11.5-14.5 [facility] Comment on above: Performed By: #### B GLU #### [facility] [address] [place] [address] Granulocytes/100 WBC (Bld) 61.3 % Normal 40.0-80.0 [facility] Comment on above: Performed By: #### B GLU #### [facility] [address] [place] [address] Hematocrit (Bld) [Volume fraction] 35.8 % Low 40.0-52.0 [facility] Comment on above: Performed By: #### B GLU #### [facility] [address] [place] [address] Hemoglobin (Bld) [Mass/Vol] 12.1 g/dL Low 13.0-18.0 [facility] Comment on above: Performed By: #### B GLU #### [facility] [address] [place] [address] Lymphocytes (Bld) [#/Vol] 0.8 10*3/uL Low 1.0-4.3 [facility] Comment on above: Performed By: #### B GLU #### [facility] [address] [place] [address] Lymphocytes/100 WBC (Bld) 18.4 % Low 20.0-40.0 [facility] Comment on above: Performed By: #### B GLU #### [facility] [address] [place] [address] MCH (RBC) [Entitic mass] 30.9 pg Normal 26.0-34.0 [facility] Comment on above: Performed By: #### B GLU #### [facility] [address] [place] [address] MCHC 33.8 % Normal 32.0-36.0 [facility] Comment on above: Performed By: #### B GLU #### [facility] [address] [place] [address] MCV (RBC) [Entitic vol] 91.6 fL Normal 80.0-98.0 [facility] Comment on above: Performed By: #### B GLU #### [facility] [address] [place] [address] Monocytes (Bld) [#/Vol] 0.4 10*3/uL Normal 0.0-0.8 [facility] Comment on above: Performed By: #### B GLU #### [facility] [address] [place] [address] Monocytes/100 WBC (Bld) 9.2 % Normal 2.0-10.0 [facility] Comment on above: Performed By: #### B GLU #### [facility] [address] [place] [address] Platelet mean volume (Bld) [Entitic vol] 8.9 fL Normal 7.4-10.4 [facility] Comment on above: Performed By: #### B GLU #### [facility] [address] [place] [address] Platelets (Bld) [#/Vol] 193 10*3/uL Normal 140-440 [facility] Comment on above: Performed By: #### B GLU #### [facility] [address] [place] [address] RBC (Bld) [#/Vol] 3.91 10*6/uL Low 4.40-5.90 [facility] Comment on above: Performed By: #### B GLU #### [facility] [address] [place] [address] WBC (Bld) [#/Vol] 4.5 10*3/uL Normal 3.6-10.7 [facility] Comment on above: Performed By: #### B GLU #### [facility] [address] [place] [address] Basic Metabolic Panelon 07-1 Calcium [Mass/Vol] 9.4 mg/dL Normal 8.4-10.4 [facility] Comment on above: Performed By: #### B NP3, TROPN, BMP3, HEMDF #### [facility] [address] [place] [address] Glucose [Mass/Vol] 95 mg/dL Normal 70-100 [facility] Comment on above: Performed By: #### B NP3, TROPN, BMP3, HEMDF #### [facility] [address] [place] [address] Urea nitrogen [Mass/Vol] 51 mg/dL High 7-20 [facility] Comment on above: Performed By: #### B NP3, TROPN, BMP3, HEMDF #### [facility] [address] [place] [address] Anion gap [Moles/Vol] 9 mmol/L Normal 3-13 [facility] Comment on above: Performed By: #### B NP3, TROPN, BMP3, HEMDF #### [facility] [address] [place] [address] CO2 [Moles/Vol] 30 mmol/L Normal 22-30 [facility] Comment on above: Performed By: #### B NP3, TROPN, BMP3, HEMDF #### [facility] [address] [place] [address] Creatinine [Mass/Vol] 2.58 mg/dL High 0.52-1.25 [facility] Comment on above: Performed By: #### B NP3, TROPN, BMP3, HEMDF #### [facility] [address] [place] [address] GFR/1.73 sq M.predicted among blacks MDRD (S/P/Bld) [Vol rate/Area] 25.8 mL/min/{1.73_m2} Abnormal >60 [facility] Comment on above: Performed By: #### B NP3, TROPN, BMP3, HEMDF #### [facility] [address] [place] [address] GFR/1.73 sq M.predicted among non-blacks MDRD (S/P/Bld) [Vol rate/Area] 22.2 mL/min/{1.73_m2} Abnormal >60 [facility] Comment on above: Result Comment: KDIG [...] #### B NP3, TROPN, BMP3, HEMDF #### [facility] [address] [place] [address] Chloride [Moles/Vol] 99 mmol/L Normal 98-107 [facility] Comment on above: Performed By: #### B NP3, TROPN, BMP3, HEMDF #### [facility] [address] [place] [address] Potassium [Moles/Vol] 4.0 mmol/L Normal 3.5-5.1 [facility] Comment on above: Performed By: #### B NP3, TROPN, BMP3, HEMDF #### [facility] [address] [place] [address] Sodium [Moles/Vol] 138 mmol/L Normal 135-145 [facility] Comment on above: Performed By: #### B NP3, TROPN, BMP3, HEMDF #### [facility] [address] [place] [address] Hemogram w/ Autodiffon 01-31 Abs Baso Cnt 0.0 10*3/uL Normal 0.0-0.2 [facility] Comment on above: Performed By: #### B NP3, TROPN, BMP3, HEMDF #### [facility] [address] [place] [address] Abs Neutrophile Cnt 2.5 10*3/uL Normal 1.8-7.0 [facility] Comment on above: Performed By: #### B NP3, TROPN, BMP3, HEMDF #### [facility] [address] [place] [address] Basophils/100 WBC (Bld) 0.7 % Normal 0.0-2.0 [facility] Comment on above: Performed By: #### B NP3, TROPN, BMP3, HEMDF #### [facility] [address] [place] [address] Eosinophils (Bld) [#/Vol] 0.3 10*3/uL Normal 0.0-0.5 [facility] Comment on above: Performed By: #### B NP3, TROPN, BMP3, HEMDF #### [facility] [address] [place] [address] Eosinophils/100 WBC (Bld) 6.5 % High 1.0-6.0 [facility] Comment on above: Performed By: #### B NP3, TROPN, BMP3, HEMDF #### [facility] [address] [place] [address] Erythrocyte distribution width (RBC) [Ratio] 17.8 % High 11.5-14.5 [facility] Comment on above: Performed By: #### B NP3, TROPN, BMP3, HEMDF #### [facility] [address] [place] [address] Granulocytes/100 WBC (Bld) 63.7 % Normal 40.0-80.0 [facility] Comment on above: Performed By: #### B NP3, TROPN, BMP3, HEMDF #### [facility] [address] [place] [address] Hematocrit (Bld) [Volume fraction] 37.5 % Low 40.0-52.0 [facility] Comment on above: Performed By: #### B NP3, TROPN, BMP3, HEMDF #### [facility] [address] [place] [address] Hemoglobin (Bld) [Mass/Vol] 12.7 g/dL Low 13.0-18.0 [facility] Comment on above: Performed By: #### B NP3, TROPN, BMP3, HEMDF #### [facility] [address] [place] [address] Lymphocytes (Bld) [#/Vol] 0.7 10*3/uL Low 1.0-4.3 [facility] Comment on above: Performed By: #### B NP3, TROPN, BMP3, HEMDF #### [facility] [address] [place] [address] Lymphocytes/100 WBC (Bld) 18.0 % Low 20.0-40.0 [facility] Comment on above: Performed By: #### B NP3, TROPN, BMP3, HEMDF #### [facility] [address] [place] [address] MCH (RBC) [Entitic mass] 31.3 pg Normal 26.0-34.0 [facility] Comment on above: Performed By: #### B NP3, TROPN, BMP3, HEMDF #### [facility] [address] [place] [address] MCHC 33.8 % Normal 32.0-36.0 [facility] Comment on above: Performed By: #### B NP3, TROPN, BMP3, HEMDF #### [facility] [address] [place] [address] MCV (RBC) [Entitic vol] 92.7 fL Normal 80.0-98.0 [facility] Comment on above: Performed By: #### B NP3, TROPN, BMP3, HEMDF #### [facility] [address] [place] [address] Monocytes (Bld) [#/Vol] 0.4 10*3/uL Normal 0.0-0.8 [facility] Comment on above: Performed By: #### B NP3, TROPN, BMP3, HEMDF #### [facility] [address] [place] [address] Monocytes/100 WBC (Bld) 11.1 % High 2.0-10.0 [facility] Comment on above: Performed By: #### B NP3, TROPN, BMP3, HEMDF #### [facility] [address] [place] [address] Platelet mean volume (Bld) [Entitic vol] 8.9 fL Normal 7.4-10.4 [facility] Comment on above: Performed By: #### B NP3, TROPN, BMP3, HEMDF #### [facility] [address] [place] [address] Platelets (Bld) [#/Vol] 182 10*3/uL Normal 140-440 [facility] Comment on above: Performed By: #### B NP3, TROPN, BMP3, HEMDF #### [facility] [address] [place] [address] RBC (Bld) [#/Vol] 4.04 10*6/uL Low 4.40-5.90 [facility] Comment on above: Performed By: #### B NP3, TROPN, BMP3, HEMDF #### [facility] [address] [place] [address] WBC (Bld) [#/Vol] 3.9 10*3/uL Normal 3.6-10.7 [facility] Comment on above: Performed By: #### B NP3, TROPN, BMP3, HEMDF #### [facility] [address] [place] [address] Hepatic Functionon 1 ALP [Catalytic activity/Vol] 85 U/L Normal 38-126 [facility] Comment on above: Performed By: #### B NP3, TROPN, BMP3, HEMDF #### [facility] [address] [place] [address] ALT [Catalytic activity/Vol] 16 U/L Normal 0-49 [facility] Comment on above: Result Comment: The ALT test is performed by an updated assay method. Please note that the reference intervals have been changed and are now sex specific. Performed By: #### B NP3, TROPN, BMP3, HEMDF #### [facility] [address] [place] [address] AST [Catalytic activity/Vol] 29 U/L Normal 15-46 [facility] Comment on above: Performed By: #### B NP3, TROPN, BMP3, HEMDF #### [facility] [address] [place] [address] Bilirubin [Mass/Vol] 2.0 mg/dL High 0.2-1.3 [facility] Comment on above: Performed By: #### B NP3, TROPN, BMP3, HEMDF #### [facility] [address] [place] [address] Bilirubin.indirect [Mass/Vol] 0.0 mg/dL Normal 0.0-0.3 [facility] Comment on above: Performed By: #### B NP3, TROPN, BMP3, HEMDF #### [facility] [address] [place] [address] Protein [Mass/Vol] 6.9 g/dL Normal 6.3-8.2 [facility] Comment on above: Performed By: #### B NP3, TROPN, BMP3, HEMDF #### [place] [address] [place] [address] Albumin [Mass/Vol] 3.9 g/dL Normal 3.5-5.0 [facility] Comment on above: Performed By: #### B NP3, TROPN, BMP3, HEMDF #### [facility] [address] [place] [address] Lactic Acidon 01-31-2021 Lactate [Moles/Vol] 2.2 mmol/L Critically high 0.7-2.0 [facility] Comment on above: Performed By: #### T ROPN, LACT3 #### [facility] [address] [place] [address] Troponin Ion 01-31-2021 Troponin I.cardiac [Mass/Vol] 0.027 ng/mL Normal 0.000-0.034 [facility] Comment on above: Result Comment: . Performed By: #### B GLU #### [facility] [address] [place] [address] CR Chest Portableon 01-31-20 21 CR Chest Portable Patient Name: MEGAN NASCIMENTO Diagnostic Radiology ACCESSION EXAM DATE/TIME PROCEDURE ORDERING PROVIDER [id number] 01/30/2021 07:12 EDT CR Chest Portable MD MENDOZA KEVIN G CPT code 93061 Reason For Exam (CR Chest Portable) n/v [...] Transcribed Date and Time: 01/30/2021 7:21 Normal [facility] CT Abdomen/Pelvis w/o Contra ston 01-30-2021 CT Abdomen/Pelvis w/o Contrast Patient Name: MEGAN NASCIMENTO Computed Tomography ACCESSION EXAM DATE/TIME PROCEDURE ORDERING PROVIDER [id number] 01/30/2021 06:[address] Abdomen/Pelvis (No MD MENDOZA KEVIN G PO, No IV) CPT code 55223 Reason For Exam (CT Abdomen/Pelvis (No PO, [...] Transcribed Date and Time: 01/30/2021 6:59 Normal [facility] Comp Metabolic Panelon 01-30 Calcium [Mass/Vol] 10.5 mg/dL High 8.4-10.4 [facility] Comment on above: Performed By: #### B GLU #### [facility] [address] [place] [address] ALP [Catalytic activity/Vol] 137 U/L High 38-126 [facility] Comment on above: Performed By: #### B GLU #### [facility] [address] [place] [address] ALT [Catalytic activity/Vol] 21 U/L Normal 0-49 [facility] Comment on above: Result Comment: The ALT test is performed by an updated assay method. Please note that the reference intervals have been changed and are now sex specific. Performed By: #### B GLU #### [facility] [address] [place] [address] Anion gap [Moles/Vol] 16 mmol/L High 3-13 [facility] Comment on above: Performed By: #### B GLU #### [facility] [address] [place] [address] AST [Catalytic activity/Vol] 46 U/L Normal 15-46 [facility] Comment on above: Performed By: #### B GLU #### [facility] [address] [place] [address] Bilirubin [Mass/Vol] 3.1 mg/dL High 0.2-1.3 [facility] Comment on above: Performed By: #### B GLU #### [facility] [address] [place] [address] CO2 [Moles/Vol] 26 mmol/L Normal 22-30 [facility] Comment on above: Performed By: #### B GLU #### [facility] [address] [place] [address] Creatinine [Mass/Vol] 2.52 mg/dL High 0.52-1.25 [facility] Comment on above: Performed By: #### B GLU #### [facility] [address] [place] [address] GFR/1.73 sq M.predicted among blacks MDRD (S/P/Bld) [Vol rate/Area] 26.5 mL/min/{1.73_m2} Abnormal >60 [facility] Comment on above: Performed By: #### B GLU #### [facility] [address] [place] [address] GFR/1.73 sq M.predicted among non-blacks MDRD (S/P/Bld) [Vol rate/Area] 22.9 mL/min/{1.73_m2} Abnormal >60 [facility] Comment on above: Result Comment: KDIG [...] secretion. Performed By: #### B GLU #### [facility] [address] [place] [address] Glucose [Mass/Vol] 99 mg/dL Normal 70-100 [facility] Comment on above: Performed By: #### B GLU #### [facility] [address] [place] [address] Protein [Mass/Vol] 8.9 g/dL High 6.3-8.2 [facility] Comment on above: Performed By: #### B GLU #### [facility] [address] [place] [address] Urea nitrogen [Mass/Vol] 50 mg/dL High 7-20 [facility] Comment on above: Performed By: #### B GLU #### [facility] [address] [place] [address] Albumin [Mass/Vol] 4.9 g/dL Normal 3.5-5.0 [facility] Comment on above: Performed By: #### B GLU #### [facility] [address] [place] [address] Chloride [Moles/Vol] 96 mmol/L Low 98-107 [facility] Comment on above: Performed By: #### B GLU #### [facility] [address] [place] [address] Potassium [Moles/Vol] 4.6 mmol/L Normal 3.5-5.1 [facility] Comment on above: Performed By: #### B GLU #### [facility] [address] [place] [address] Sodium [Moles/Vol] 138 mmol/L Normal 135-145 [facility] Comment on above: Performed By: #### B GLU #### [facility] [employer] [facility] [address] [place] [address] ED Provider Noteon 1 ED Provider Note Emergency Department Encounter [facility] SUSANKENDALL ED Patient Identification Pt Name: Megan Nascimento [...] Gatherings with Friends and Family: ? Attends [employer] Services: ? Active Member of Clubs or Organizations: ? Attends Club or Organization Meetings: (more content not included)... Normal [facility] Hemogram w/ Autodiffon 01-30 Abs Baso Cnt 0.1 10*3/uL Normal 0.0-0.2 [facility] Comment on above: Performed By: #### B GLU #### [facility] [address] [place] [address] Abs Neutrophile Cnt 3.6 10*3/uL Normal 1.8-7.0 [facility] Comment on above: Performed By: #### B GLU #### [facility] [address] [place] [address] Basophils/100 WBC (Bld) 1.4 % Normal 0.0-2.0 [facility] Comment on above: Performed By: #### B GLU #### [facility] [address] [place] [address] Eosinophils (Bld) [#/Vol] 0.2 10*3/uL Normal 0.0-0.5 [facility] Comment on above: Performed By: #### B GLU #### [facility] [address] [place] [address] Eosinophils/100 WBC (Bld) 3.7 % Normal 1.0-6.0 [facility] Comment on above: Performed By: #### B GLU #### [facility] [address] [place] [address] Erythrocyte distribution width (RBC) [Ratio] 17.8 % High 11.5-14.5 [facility] Comment on above: Performed By: #### B GLU #### [facility] [address] [place] [address] Granulocytes/100 WBC (Bld) 65.9 % Normal 40.0-80.0 [facility] Comment on above: Performed By: #### B GLU #### [facility] [address] [place] [address] Hematocrit (Bld) [Volume fraction] 43.9 % Normal 40.0-52.0 [facility] Comment on above: Performed By: #### B GLU #### [facility] [address] [place] [address] Hemoglobin (Bld) [Mass/Vol] 14.6 g/dL Normal 13.0-18.0 [facility] Comment on above: Performed By: #### B GLU #### [place] [address] [place] [address] Lymphocytes (Bld) [#/Vol] 1.0 10*3/uL Normal 1.0-4.3 [facility] Comment on above: Performed By: #### B GLU #### [place] [address] [place] [address] Lymphocytes/100 WBC (Bld) 19.2 % Low 20.0-40.0 [facility] Comment on above: Performed By: #### B GLU #### [place] [address] [place] [address] MCH (RBC) [Entitic mass] 30.6 pg Normal 26.0-34.0 [facility] Comment on above: Performed By: #### B GLU #### [facility] [address] [place] [address] MCHC 33.2 % Normal 32.0-36.0 [facility] Comment on above: Performed By: #### B GLU #### [place] [address] [place] [address] MCV (RBC) [Entitic vol] 92.2 fL Normal 80.0-98.0 [facility] Comment on above: Performed By: #### B GLU #### [place] [address] [place] [address] Monocytes (Bld) [#/Vol] 0.5 10*3/uL Normal 0.0-0.8 [facility] Comment on above: Performed By: #### B GLU #### [facility] [address] [place] [address] Monocytes/100 WBC (Bld) 9.8 % Normal 2.0-10.0 [facility] Comment on above: Performed By: #### B GLU #### [facility] [address] [place] [address] Platelet mean volume (Bld) [Entitic vol] 9.1 fL Normal 7.4-10.4 [facility] Comment on above: Performed By: #### B GLU #### [facility] [address] [place] [address] Platelets (Bld) [#/Vol] 226 10*3/uL Normal 140-440 [facility] Comment on above: Performed By: #### B GLU #### [facility] [address] [place] [address] RBC (Bld) [#/Vol] 4.77 10*6/uL Normal 4.40-5.90 [facility] Comment on above: Performed By: #### B GLU #### [facility] [address] [place] [address] WBC (Bld) [#/Vol] 5.4 10*3/uL Normal 3.6-10.7 [facility] Comment on above: Performed By: #### B GLU #### [facility] [address] [place] [address] Lactic Acidon 01-30-2021 Lactate [Moles/Vol] 3.3 mmol/L Critically high 0.7-2.0 [facility] Comment on above: Performed By: #### B GLU #### [facility] [address] [place] [address] Lactic Acid, Sepsison 2020 Lactate [Moles/Vol] 2.4 mmol/L Critically high 0.7-2.0 [facility] Comment on above: Performed By: #### L IPD2, BMP3, MG3 #### [facility] [address] [place] [address] Lactate [Moles/Vol] 2.8 mmol/L Critically high 0.7-2.0 [facility] Comment on above: Performed By: #### B GLU #### [facility] [address] [place] [address] Lipaseon 01-30-2021 Lipase [Catalytic activity/Vol] 179 U/L Normal 23-300 [facility] Comment on above: Performed By: #### B GLU #### [facility] [address] [place] [address] Troponin Ion 01-30-2021 Troponin I.cardiac [Mass/Vol] 0.039 ng/mL High 0.000-0.034 [facility] Comment on above: Result Comment: . Performed By: #### B GLU #### [facility] [address] [place] [address] US Abdomen Limitedon 021 US Abdomen Limited Patient Name: MEGAN NASCIMENTO Ultrasound ACCESSION EXAM DATE/TIME PROCEDURE ORDERING PROVIDER [id number] 01/30/2021 07:25 EDT US Abdomen Limited MD MENDOZA KEVIN G CPT code 65340 Reason For Exam (US Abdomen Limited) right [...] Transcribed Date and Time: 01/30/2021 7:38 Normal [facility] Basic Metabolic Panelon 03-0 Calcium [Mass/Vol] 9.5 mg/dL Normal 8.4-10.4 [facility] Comment on above: Performed By: #### L IPD2, BMP3, MG3 #### [facility] [address] [place] [address] Anion gap [Moles/Vol] 11 mmol/L Normal 3-13 [facility] Comment on above: Performed By: #### L IPD2, BMP3, MG3 #### [facility] [address] [place] [address] CO2 [Moles/Vol] 35 mmol/L High 22-30 [facility] Comment on above: Performed By: #### L IPD2, BMP3, MG3 #### [facility] [address] [place] [address] Creatinine [Mass/Vol] 2.14 mg/dL High 0.52-1.25 [facility] Comment on above: Performed By: #### L IPD2, BMP3, MG3 #### [facility] [address] [place] [address] GFR/1.73 sq M.predicted among blacks MDRD (S/P/Bld) [Vol rate/Area] 32.4 mL/min/{1.73_m2} Abnormal >60 [facility] Comment on above: Performed By: #### L IPD2, BMP3, MG3 #### [facility] [address] [place] [address] GFR/1.73 sq M.predicted among non-blacks MDRD (S/P/Bld) [Vol rate/Area] 27.9 mL/min/{1.73_m2} Abnormal >60 [facility] Comment on above: Result Comment: KDIG [...] By: #### L IPD2, BMP3, MG3 #### [facility] [address] [place] [address] Glucose [Mass/Vol] 115 mg/dL High 70-100 [facility] Comment on above: Performed By: #### L IPD2, BMP3, MG3 #### [facility] [address] [place] [address] Urea nitrogen [Mass/Vol] 41 mg/dL High 7-20 [facility] Comment on above: Performed By: #### L IPD2, BMP3, MG3 #### [facility] [address] [place] [address] Chloride [Moles/Vol] 94 mmol/L Low 98-107 [facility] Comment on above: Performed By: #### L IPD2, BMP3, MG3 #### [facility] [address] [place] [address] Potassium [Moles/Vol] 4.3 mmol/L Normal 3.5-5.1 [facility] Comment on above: Performed By: #### L IPD2, BMP3, MG3 #### [facility] [address] [place] [address] Sodium [Moles/Vol] 139 mmol/L Normal 135-145 [facility] Comment on above: Performed By: #### L IPD2, BMP3, MG3 #### [facility] [address] [place] [address] Anion gap [Moles/Vol] 11 mmol/L 3 - 13 mmol/L [facility] Work Phone: [phone] Calcium [Mass/Vol] 9.5 mg/dL 8.4 - 10. 4 mg/dL [facility] Work Phone: 1 Chloride [Moles/Vol] 94 mmol/L Low 98 - 10 7 mmol/L [facility] Work Phone: CO2 [Moles/Vol] 35 mmol/L High 22 - 30 mmol/L [facility] Work Phone: Creatinine [Mass/Vol] 2.14 mg/dL High 0.52 - 1.25 mg/dL [facility] Work Phone: EGFR IF NonAfrican [place] 27.9 mL/min Abnormal >60 [facility] Work Phone: [phone] Comment on above: KDIGO guidelines pro vide [...] 32.4 mL/min/{1.73_m2} Abnormal >60 [facility] Work Phone: [phone] Glucose [Mass/Vol] 115 mg/dL High 70 - 100 mg/dL [facility] Work Phone: [phone] Interpretation and review of laboratory results Abnormal [facility] Work Phone: Potassium [Moles/Vol] 4.3 mmol/L 3.5 - 5.1 mmol/L [facility] Work Phone: 1 Sodium [Moles/Vol] 139 mmol/L 135 - 145 mmol/L [facility] Work Phone: 1 Urea nitrogen [Mass/Vol] 41 mg/dL High 7 - 20 mg/d L [facility] Work Phone: 1 CBC Auto Differentialon 03-0 Absolute Baso # 0.1 10*3/uL 0.0 - 0.2 10*3/uL [facility] Work Phone: Absolute Neut # 4.2 10*3/uL 1.8 - 7.0 10*3/uL [facility] Work Phone: 1 Basophils/100 WBC (Bld) 0.8 % 0.0 - 2.0 % [facility] Work Phone: Eosinophils (Bld) [#/Vol] 0.3 10*3/uL 0.0 - 0.5 10*3/uL [facility] Work Phone: Eosinophils/100 WBC (Bld) 5.5 % 1.0 - 6.0 % [facility] Work Phone: Erythrocyte distribution width (RBC) [Ratio] 33.6 % High 11.5 - 14.5 % [employer] Work Phone: Granulocytes/100 WBC (Bld) 67.3 % 40.0 - 80.0 % [employer] Work Phone: Hematocrit (Bld) [Volume fraction] 36.4 % Low 40.0 - 52.0 % [facility] Work Phone: Hemoglobin (Bld) [Mass/Vol] 11.6 g/dL Low 13.0 - 18.0 g/dL [facility] Work Phone: Interpretation and review of laboratory results Abnormal [employer] Work Phone: Lymphocytes (Bld) [#/Vol] 1.2 10*3/uL 1.0 - 4.3 10*3/uL [facility] Work Phone: Lymphocytes/100 WBC (Bld) 19.9 % Low 20.0 - 40.0 % [employer] Work Phone: 1() MCH (RBC) [Entitic mass] 26.7 pg 26. 0 - 34.0 pg [employer] Work Phone: 1) MCHC (RBC) [Mass/Vol] 31.9 % Low 32.0 - 36.0 % [employer] Work Phone: 1() MCV (RBC) [Entitic vol] 83.5 fL 80.0 - 98.0 fL [employer] Work Phone: 1() Monocytes (Bld) [#/Vol] 0.4 10*3/uL 0.0 - 0.8 10*3/uL [employer] Work Phone: 1() Monocytes/100 WBC (Bld) 6.5 % 2.0 - 10.0 % [employer] Phone: 1) Platelet mean volume (Bld) [Entitic vol] 8.6 fL 7.4 - 10.4 fL [employer] Phone: 1() Platelets (Bld) [#/Vol] 261 10*3/uL 140 - 440 10*3/uL [employer] Work Phone: 1) RBC (Bld) [#/Vol] 4.36 10*6/uL Low 4.40 - 5.9 0 10*6/uL [employer] Work Phone: 1() WBC (Bld) [#/Vol] 6.2 10*3/uL 3.6 - 10.7 10*3/uL [employer] Work Phone: 1) Test Performed by [employer], [address] [place], [place], [place] [address] [facility] Work Phone: [phone] Hemogram w/ Autodiffon 09-26 Abs Baso Cnt 0.1 10*3/uL Normal 0.0-0.2 [facility] Comment on above: Performed By: #### L IPD2, BMP3, MG3 #### [employer] [address] [place] [address] Abs Neutrophile Cnt 4.2 10*3/uL Normal 1.8-7.0 [facility] [employer] Comment on above: Performed By: #### L IPD2, BMP3, MG3 #### [facility] [address] [place] [address] Basophils/100 WBC (Bld) 0.8 % Normal 0.0-2.0 [facility] Comment on above: Performed By: #### L IPD2, BMP3, MG3 #### [facility] [address] [place] [address] Eosinophils (Bld) [#/Vol] 0.3 10*3/uL Normal 0.0-0.5 [facility] Comment on above: Performed By: #### L IPD2, BMP3, MG3 #### [facility] [address] [place] [address] Eosinophils/100 WBC (Bld) 5.5 % Normal 1.0-6.0 [facility] Comment on above: Performed By: #### L IPD2, BMP3, MG3 #### [facility] [address] [place] [address] Erythrocyte distribution width (RBC) [Ratio] 33.6 % High 11.5-14.5 [facility] Comment on above: Performed By: #### L IPD2, BMP3, MG3 #### [facility] [address] [place] [address] Granulocytes/100 WBC (Bld) 67.3 % Normal 40.0-80.0 [facility] Comment on above: Performed By: #### L IPD2, BMP3, MG3 #### [facility] [address] [place] [address] Hematocrit (Bld) [Volume fraction] 36.4 % Low 40.0-52.0 [facility] Comment on above: Performed By: #### L IPD2, BMP3, MG3 #### [facility] [address] [place] [address] Hemoglobin (Bld) [Mass/Vol] 11.6 g/dL Low 13.0-18.0 [facility] Comment on above: Performed By: #### L IPD2, BMP3, MG3 #### [facility] [address] [place] [address] Lymphocytes (Bld) [#/Vol] 1.2 10*3/uL Normal 1.0-4.3 [facility] Comment on above: Performed By: #### L IPD2, BMP3, MG3 #### [facility] [address] [place] [address] Lymphocytes/100 WBC (Bld) 19.9 % Low 20.0-40.0 [facility] Comment on above: Performed By: #### L IPD2, BMP3, MG3 #### [facility] [address] [place] [address] MCH (RBC) [Entitic mass] 26.7 pg Normal 26.0-34.0 [facility] Comment on above: Performed By: #### L IPD2, BMP3, MG3 #### [facility] [address] [place] [address] MCHC 31.9 % Low 32.0-36.0 [facility] Comment on above: Performed By: #### L IPD2, BMP3, MG3 #### [facility] [address] [place] [address] MCV (RBC) [Entitic vol] 83.5 fL Normal 80.0-98.0 [facility] Comment on above: Performed By: #### L IPD2, BMP3, MG3 #### [facility] [address] [place] [address] Monocytes (Bld) [#/Vol] 0.4 10*3/uL Normal 0.0-0.8 [facility] Comment on above: Performed By: #### L IPD2, BMP3, MG3 #### [facility] [address] [place] [address] Monocytes/100 WBC (Bld) 6.5 % Normal 2.0-10.0 [facility] Comment on above: Performed By: #### L IPD2, BMP3, MG3 #### [facility] [address] [place] [address] Platelet mean volume (Bld) [Entitic vol] 8.6 fL Normal 7.4-10.4 [facility] Comment on above: Performed By: #### L IPD2, BMP3, MG3 #### [facility] [address] [place] [address] Platelets (Bld) [#/Vol] 261 10*3/uL Normal 140-440 [facility] Comment on above: Performed By: #### L IPD2, BMP3, MG3 #### [facility] [address] [place] [address] RBC (Bld) [#/Vol] 4.36 10*6/uL Low 4.40-5.90 [facility] Comment on above: Performed By: #### L IPD2, BMP3, MG3 #### [facility] [address] [place] [address] WBC (Bld) [#/Vol] 6.2 10*3/uL Normal 3.6-10.7 [facility] Comment on above: Performed By: #### L IPD2, BMP3, MG3 #### [facility] [address] [place] [address] Magnesiumon 09-26-2020 Magnesium [Mass/Vol] 1.9 mg/dL Normal 1.6-2.3 [facility] Comment on above: Performed By: #### L IPD2, BMP3, MG3 #### [facility] [address] [place] [address] Magnesium [Mass/Vol] 1.9 mg/dL 1.6 - 2 .3 mg/dL [facility] Work Phone: Metabolic Panelon 09-26-2020 Sodium [Moles/Vol] Slight [facility] Work Phone: [phone] Otheron 09-26-2020 Test Performed by [facility], [address] [place] [address] [facility] Work Phone: [phone] RBC MORPHOLOGYon 09-26-2020 Anisocytosis Ql (Bld) Marked [facility] Work Phone: [phone] RBC morphology finding Nom (Bld) ABNORMAL [facility] Work Phone: [phone] Sodium [Moles/Vol] Moderate [facility] Work Phone: [phone] Test Performed by [facility], [address] [place] [address] [facility] Work Phone: RBC Morphologyon 09-26-2020 Anisocytosis Ql (Bld) Marked Normal [facility] Comment on above: Performed By: #### L IPD2, BMP3, MG3 #### [facility] [address] [place] [address] Elliptocytes Slight Normal [facility] Comment on above: Performed By: #### L IPD2, BMP3, MG3 #### [facility] [address] [place] [address] Hypochromia Slight Normal [facility] Comment on above: Performed By: #### L IPD2, BMP3, MG3 #### [facility] [address] [place] [address] Ovalocytes Slight Normal [facility] Comment on above: Performed By: #### L IPD2, BMP3, MG3 #### [facility] [address] [place] [address] Poikilocytosis Moderate Normal [facility] Comment on above: Performed By: #### L IPD2, BMP3, MG3 #### [facility] [address] [place] [address] Polychromasia Slight Normal [facility] Comment on above: Performed By: #### L IPD2, BMP3, MG3 #### [facility] [address] [place] [address] RBC morphology finding Nom (Bld) ABNORMAL Normal [facility] Comment on above: Performed By: #### L IPD2, BMP3, MG3 #### [facility] [address] [place] [address] Schistocytes Slight Normal [facility] Comment on above: Performed By: #### L IPD2, BMP3, MG3 #### [facility] [address] [place] [address] Target Cells Slight Normal [facility] Comment on above: Performed By: #### L IPD2, BMP3, MG3 #### [facility] [address] [place] [address] Basic Metabolic Panelon 03-0 Calcium [Mass/Vol] 9.0 mg/dL Normal 8.4-10.4 [facility] Comment on above: Performed By: #### L IPD2, BMP3, MG3 #### [facility] [address] [place] [address] Anion gap [Moles/Vol] 7 mmol/L Normal 3-13 [facility] Comment on above: Performed By: #### L IPD2, BMP3, MG3 #### [facility] [address] [place] [address] CO2 [Moles/Vol] 34 mmol/L High 22-30 [facility] Comment on above: Performed By: #### L IPD2, BMP3, MG3 #### [facility] [address] [place] [address] Creatinine [Mass/Vol] 2.12 mg/dL High 0.52-1.25 [facility] Comment on above: Performed By: #### L IPD2, BMP3, MG3 #### [facility] [address] [place] [address] GFR/1.73 sq M.predicted among blacks MDRD (S/P/Bld) [Vol rate/Area] 32.8 mL/min/{1.73_m2} Abnormal >60 [facility] Comment on above: Performed By: #### L IPD2, BMP3, MG3 #### [facility] [address] [place] [address] GFR/1.73 sq M.predicted among non-blacks MDRD (S/P/Bld) [Vol rate/Area] 28.3 mL/min/{1.73_m2} Abnormal >60 [facility] Comment on above: Result Comment: KDIG [...] By: #### L IPD2, BMP3, MG3 #### [facility] [address] [place] [address] Glucose [Mass/Vol] 126 mg/dL High 70-100 [facility] Comment on above: Performed By: #### L IPD2, BMP3, MG3 #### [facility] [address] [place] [address] Urea nitrogen [Mass/Vol] 38 mg/dL High 7-20 [facility] Comment on above: Performed By: #### L IPD2, BMP3, MG3 #### [facility] [address] [place] [address] Chloride [Moles/Vol] 95 mmol/L Low 98-107 [facility] Comment on above: Performed By: #### L IPD2, BMP3, MG3 #### [facility] [address] [place] [address] Potassium [Moles/Vol] 3.2 mmol/L Low 3.5-5.1 [facility] Comment on above: Performed By: #### L IPD2, BMP3, MG3 #### [facility] [address] [place] [address] Sodium [Moles/Vol] 136 mmol/L Normal 135-145 [facility] Comment on above: Performed By: #### L IPD2, BMP3, MG3 #### [facility] [address] [place] [address] Anion gap [Moles/Vol] 7 mmol/L 3 - 13 mmol/L [facility] Work Phone: Calcium [Mass/Vol] 9.0 mg/dL 8.4 - 10. 4 mg/dL [facility] Work Phone: Chloride [Moles/Vol] 95 mmol/L Low 98 - 10 7 mmol/L [facility] Work Phone: CO2 [Moles/Vol] 34 mmol/L High 22 - 30 mmol/L [facility] Work Phone: [phone] Creatinine [Mass/Vol] 2.12 mg/dL High 0.52 - 1.25 mg/dL [facility] Work Phone: [phone] EGFR IF NonAfrican [place]ian 28.3 mL/min Abnormal >60 [facility] Work Phone: [phone] Comment on above: KDIGO guidelines pro vide [...] 32.8 mL/min/{1.73_m2} Abnormal >60 [facility] Work Phone: [phone] Glucose [Mass/Vol] 126 mg/dL High 70 - 100 mg/dL [facility] Work Phone: [phone] Interpretation and review of laboratory results Abnormal [facility] Work Phone: [phone] Potassium [Moles/Vol] 3.2 mmol/L Low 3.5 - 5.1 mmol/L [facility] Work Phone: [phone] Sodium [Moles/Vol] 136 mmol/L 135 - 145 mmol/L [facility] Work Phone: [phone] Urea nitrogen [Mass/Vol] 38 mg/dL High 7 - 20 mg/d L [facility] Work Phone: [phone] CBC Auto Differentialon 03-0 Absolute Baso # 0.1 10*3/uL 0.0 - 0.2 10*3/uL [facility] Work Phone: [phone] Absolute Neut # 3.6 10*3/uL 1.8 - 7.0 10*3/uL [facility] Work Phone: [phone] 22 Basophils/100 WBC (Bld) 2.4 % High 0.0 - 2.0 % [facility] Work Phone: 1 Eosinophils (Bld) [#/Vol] 0.3 10*3/uL 0.0 - 0.5 10*3/uL [facility] Work Phone: 1 Eosinophils/100 WBC (Bld) 4.9 % 1.0 - 6.0 % [facility] Work Phone: 1 Erythrocyte distribution width (RBC) [Ratio] 33.5 % High 11.5 - 14.5 % [employer] Work Phone: Granulocytes/100 WBC (Bld) 67.9 % 40.0 - 80.0 % [employer] Phone: Hematocrit (Bld) [Volume fraction] 35.0 % Low 40.0 - 52.0 % [employer] Work Phone: Hemoglobin (Bld) [Mass/Vol] 11.1 g/dL Low 13.0 - 18.0 g/dL [employer] Phone: 1 Interpretation and review of laboratory results Abnormal [employer] Work Phone: Lymphocytes (Bld) [#/Vol] 1.0 10*3/uL 1.0 - 4.3 10*3/uL [employer] Work Phone: 22 Lymphocytes/100 WBC (Bld) 18.0 % Low 20.0 - 40.0 % [employer] Work Phone: MCH (RBC) [Entitic mass] 26.7 pg 26. 0 - 34.0 pg [facility] Work Phone: MCHC (RBC) [Mass/Vol] 31.7 % Low 32.0 - 36.0 % [facility] Work Phone: MCV (RBC) [Entitic vol] 84.2 fL 80.0 - 98.0 fL [facility] Work Phone: 1() 22 Monocytes (Bld) [#/Vol] 0.4 10*3/uL 0.0 - 0.8 10*3/uL [employer] Work Phone: 1 22 Monocytes/100 WBC (Bld) 6.8 % 2.0 - 10.0 % [employer] Work Phone: 1 22 Platelet mean volume (Bld) [Entitic vol] 8.9 fL 7.4 - 10.4 fL [facility] Work Phone: 1) Platelets (Bld) [#/Vol] 223 10*3/uL 140 - 440 10*3/uL [facility] Work Phone: 1) RBC (Bld) [#/Vol] 4.16 10*6/uL Low 4.40 - 5.9 0 10*6/uL [employer] Work Phone: 1) WBC (Bld) [#/Vol] 5.3 10*3/uL 3.6 - 10.7 10*3/uL [employer] Work Phone: 1 Test Performed by [facility], [address] [place] [address] [facility] Work Phone: 1 Hemogram w/ Autodiffon 09-25 Abs Baso Cnt 0.1 10*3/uL Normal 0.0-0.2 [facility] Comment on above: Performed By: #### L IPD2, BMP3, MG3 #### [facility] [employer] [address] [place] [address] Abs Neutrophile Cnt 3.6 10*3/uL Normal 1.8-7.0 [facility] Comment on above: Performed By: #### L IPD2, BMP3, MG3 #### [facility] [address] [place] [address] Basophils/100 WBC (Bld) 2.4 % High 0.0-2.0 [facility] Comment on above: Performed By: #### L IPD2, BMP3, MG3 #### [facility] [address] [place] [address] Eosinophils (Bld) [#/Vol] 0.3 10*3/uL Normal 0.0-0.5 [facility] Comment on above: Performed By: #### L IPD2, BMP3, MG3 #### [facility] [address] [place] [address] Eosinophils/100 WBC (Bld) 4.9 % Normal 1.0-6.0 [facility] Comment on above: Performed By: #### L IPD2, BMP3, MG3 #### [facility] [address] [place] [address] Erythrocyte distribution width (RBC) [Ratio] 33.5 % High 11.5-14.5 [facility] Comment on above: Performed By: #### L IPD2, BMP3, MG3 #### [facility] [address] [place] [address] Granulocytes/100 WBC (Bld) 67.9 % Normal 40.0-80.0 [facility] Comment on above: Performed By: #### L IPD2, BMP3, MG3 #### [facility] [address] [place] [address] Hematocrit (Bld) [Volume fraction] 35.0 % Low 40.0-52.0 [facility] Comment on above: Performed By: #### L IPD2, BMP3, MG3 #### [facility] [address] [place] [address] Hemoglobin (Bld) [Mass/Vol] 11.1 g/dL Low 13.0-18.0 [facility] Comment on above: Performed By: #### L IPD2, BMP3, MG3 #### [facility] [address] [place] [address] Lymphocytes (Bld) [#/Vol] 1.0 10*3/uL Normal 1.0-4.3 [facility] Comment on above: Performed By: #### L IPD2, BMP3, MG3 #### [facility] [address] [place] [address] Lymphocytes/100 WBC (Bld) 18.0 % Low 20.0-40.0 [facility] Comment on above: Performed By: #### L IPD2, BMP3, MG3 #### [facility] [address] [place] [address] MCH (RBC) [Entitic mass] 26.7 pg Normal 26.0-34.0 [facility] Comment on above: Performed By: #### L IPD2, BMP3, MG3 #### [facility] [address] [place] [address] MCHC 31.7 % Low 32.0-36.0 [facility] Comment on above: Performed By: #### L IPD2, BMP3, MG3 #### [facility] [address] [place] [address] MCV (RBC) [Entitic vol] 84.2 fL Normal 80.0-98.0 [facility] Comment on above: Performed By: #### L IPD2, BMP3, MG3 #### [facility] [address] [place] [address] Monocytes (Bld) [#/Vol] 0.4 10*3/uL Normal 0.0-0.8 [facility] Comment on above: Performed By: #### L IPD2, BMP3, MG3 #### [facility] [address] [place] [address] Monocytes/100 WBC (Bld) 6.8 % Normal 2.0-10.0 [facility] Comment on above: Performed By: #### L IPD2, BMP3, MG3 #### [facility] [facility] [address] [place] [address] Platelet mean volume (Bld) [Entitic vol] 8.9 fL Normal 7.4-10.4 [facility] Comment on above: Performed By: #### L IPD2, BMP3, MG3 #### [facility] [address] [place] [address] Platelets (Bld) [#/Vol] 223 10*3/uL Normal 140-440 [facility] Comment on above: Performed By: #### L IPD2, BMP3, MG3 #### [facility] [address] [place] [address] RBC (Bld) [#/Vol] 4.16 10*6/uL Low 4.40-5.90 [facility] Comment on above: Performed By: #### L IPD2, BMP3, MG3 #### [facility] [address] [place] [address] WBC (Bld) [#/Vol] 5.3 10*3/uL Normal 3.6-10.7 [facility] Comment on above: Performed By: #### L IPD2, BMP3, MG3 #### [facility] [address] [place] [address] Magnesiumon 09-25-2020 Magnesium [Mass/Vol] 1.7 mg/dL Normal 1.6-2.3 [facility] Comment on above: Performed By: #### L IPD2, BMP3, MG3 #### [facility] [address] [place] [address] Magnesium [Mass/Vol] 1.7 mg/dL 1.6 - 2 .3 mg/dL [facility] Work Phone: Metabolic Panelon 09-25-2020 Sodium [Moles/Vol] Slight [facility] Work Phone: Sodium [Moles/Vol] Moderate [facility] Work Phone: Otheron 09-25-2020 Test Performed by [facility], [facility] [address] Work Phone: RBC MORPHOLOGYon 09-25-2020 Anisocytosis Ql (Bld) Marked [facility] Work Phone: RBC morphology finding Nom (Bld) ABNORMAL [facility] Work Phone: Test Performed by [facility], [facility] [address] [place], [place] [id number] [place], [place] [address]A Work Phone: RBC Morphologyon 09-25-2020 Anisocytosis Ql (Bld) Marked Normal [facility] Comment on above: Performed By: #### L IPD2, BMP3, MG3 #### [facility] [address] [place] [address] Elliptocytes Slight Normal [facility] Comment on above: Performed By: #### L IPD2, BMP3, MG3 #### [facility] [address] [place] [address] Hypochromia Mod[address] Normal [facility] Comment on above: Performed By: #### L IPD2, BMP3, MG3 #### [facility] [address] [place] [address] Microcytosis Slight Normal [facility] Comment on above: Performed By: #### L IPD2, BMP3, MG3 #### [facility] [address] [place] [address] Ovalocytes Slight Normal [facility] Comment on above: Performed By: #### L IPD2, BMP3, MG3 #### [facility] [address] [place] [address] Poikilocytosis Moderate Normal [facility] Comment on above: Performed By: #### L IPD2, BMP3, MG3 #### [facility] [address] [place] [address] Polychromasia Slight Normal [facility] Comment on above: Performed By: #### L IPD2, BMP3, MG3 #### [facility] [address] [place] [address] RBC morphology finding Nom (Bld) ABNORMAL Normal [facility] Comment on above: Performed By: #### L IPD2, BMP3, MG3 #### [facility] [address] [place] [address] Target Cells Slight Normal [facility] Comment on above: Performed By: #### L IPD2, BMP3, MG3 #### [facility] [address] [place] [address] Tear Drop Forms Slight Normal [facility] Comment on above: Performed By: #### L IPD2, BMP3, MG3 #### [facility] [address] [place] [address] Basic Metabolic Panelon 03-0 Anion gap [Moles/Vol] 8 mmol/L Normal 3-13 [facility] Comment on above: Performed By: #### B GLU #### [facility] [address] [place] [address] Calcium [Mass/Vol] 8.9 mg/dL Normal 8.4-10.4 [facility] Comment on above: Performed By: #### B GLU #### [facility] [address] [place] [address] CO2 [Moles/Vol] 34 mmol/L High 22-30 [facility] Comment on above: Performed By: #### B GLU #### [facility] [address] [place] [address] Glucose [Mass/Vol] 111 mg/dL High 70-100 [facility] Comment on above: Performed By: #### B GLU #### [facility] [address] [place] [address] Urea nitrogen [Mass/Vol] 42 mg/dL High 7-20 [facility] Comment on above: Performed By: #### B GLU #### [facility] [address] [place] [address] Creatinine [Mass/Vol] 2.23 mg/dL High 0.52-1.25 [facility] Comment on above: Performed By: #### B GLU #### [facility] [address] [place] [address] GFR/1.73 sq M.predicted among blacks MDRD (S/P/Bld) [Vol rate/Area] 30.8 mL/min/{1.73_m2} Abnormal >60 [facility] Comment on above: Performed By: #### B GLU #### [facility] [address] [place] [address] GFR/1.73 sq M.predicted among non-blacks MDRD (S/P/Bld) [Vol rate/Area] 26.6 mL/min/{1.73_m2} Abnormal >60 [facility] Comment on above: Result Comment: KDIG [...] secretion. Performed By: #### B GLU #### [facility] [address] [place] [address] Chloride [Moles/Vol] 94 mmol/L Low 98-107 [facility] Comment on above: Performed By: #### B GLU #### [facility] [address] [place] [address] Potassium [Moles/Vol] 3.2 mmol/L Low 3.5-5.1 [facility] Comment on above: Performed By: #### B GLU #### [facility] [address] [place] [address] Sodium [Moles/Vol] 136 mmol/L Normal 135-145 [facility] Comment on above: Performed By: #### B GLU #### [facility] [address] [place] [address] Anion gap [Moles/Vol] 8 mmol/L 3 - 13 mmol/L [facility] Work Phone: Calcium [Mass/Vol] 8.9 mg/dL 8.4 - 10. 4 mg/dL [facility] Work Phone: Chloride [Moles/Vol] 94 mmol/L Low 98 - 10 7 mmol/L [facility] Work Phone: CO2 [Moles/Vol] 34 mmol/L High 22 - 30 mmol/L [facility] Work Phone: Creatinine [Mass/Vol] 2.23 mg/dL High 0.52 - 1.25 mg/dL [facility] Work Phone: EGFR IF NonAfrican [place] 26.6 mL/min Abnormal >60 [facility] Work Phone: Comment on above: [...] (S/P/Bld) [Vol rate/Area] 30.8 mL/min/{1.73_m2} Abnormal >60 [employer] Work Phone: [phone] Glucose [Mass/Vol] 111 mg/dL High 70 - 100 mg/dL [employer] Work Phone: [phone] Interpretation and review of laboratory results Abnormal [employer] Work Phone: [phone] Potassium [Moles/Vol] 3.2 mmol/L Low 3.5 - 5.1 mmol/L [facility] Work Phone: [phone] Sodium [Moles/Vol] 136 mmol/L 135 - 145 mmol/L [facility] Work Phone: [phone] Urea nitrogen [Mass/Vol] 42 mg/dL High 7 - 20 mg/d L [facility] Work Phone: [phone] Brain Natriuretic Peptideon 09-24-2020 Interpretation and review of laboratory results Abnormal [employer] Work Phone: [phone] Natriuretic peptide B (Bld) [Mass/Vol] 089[address] pg/mL High 0 - 450 pg/mL [facility] Work Phone: [phone] Test Performed by [employer], [address] [place] [address] [facility] Work Phone: [phone] CBC Auto Differentialon 03-0 Absolute Baso # 0.2 10*3/uL 0.0 - 0.2 10*3/uL [facility] Work Phone: [phone] Absolute Neut # 3.9 10*3/uL 1.8 - 7.0 10*3/uL [facility] Work Phone: [phone] Basophils/100 WBC (Bld) 3.1 % High 0.0 - 2.0 % [facility] Work Phone: 22 Eosinophils (Bld) [#/Vol] 0.3 10*3/uL 0.0 - 0.5 10*3/uL [facility] Work Phone: Eosinophils/100 WBC (Bld) 4.9 % 1.0 - 6.0 % [facility] Work Phone: 1 Erythrocyte distribution width (RBC) [Ratio] 33.7 % High 11.5 - 14.5 % [facility] Work Phone: Granulocytes/100 WBC (Bld) 68.1 % 40.0 - 80.0 % [facility] Work Phone: Hematocrit (Bld) [Volume fraction] 32.6 % Low 40.0 - 52.0 % [facility] Work Phone: Hemoglobin (Bld) [Mass/Vol] 10.3 g/dL Low 13.0 - 18.0 g/dL [facility] Work Phone: [phone] Interpretation and review of laboratory results Abnormal [employer] Work Phone: Lymphocytes (Bld) [#/Vol] 1.0 10*3/uL 1.0 - 4.3 10*3/uL [facility] Work Phone: 22 Lymphocytes/100 WBC (Bld) 17.7 % Low 20.0 - 40.0 % [facility] Work Phone: MCH (RBC) [Entitic mass] 26.4 pg 26. 0 - 34.0 pg [facility] Work Phone: 22 MCHC (RBC) [Mass/Vol] 31.7 % Low 32.0 - 36.0 % [facility] Work Phone: MCV (RBC) [Entitic vol] 83.4 fL 80.0 - 98.0 fL [facility] Work Phone: Monocytes (Bld) [#/Vol] 0.4 10*3/uL 0.0 - 0.8 10*3/uL [facility] Work Phone: 22 Monocytes/100 WBC (Bld) 6.2 % 2.0 - 10.0 % [employer] Work Phone: [phone] Platelet mean volume (Bld) [Entitic vol] 9.0 fL 7.4 - 10.4 fL [employer] Work Phone: [phone] Platelets (Bld) [#/Vol] 230 10*3/uL 140 - 440 10*3/uL [facility] Work Phone: 1 RBC (Bld) [#/Vol] 3.91 10*6/uL Low 4.40 - 5.9 0 10*6/uL [employer] Work Phone: [phone] WBC (Bld) [#/Vol] 5.7 10*3/uL 3.6 - 10.7 10*3/uL [employer] Work Phone: [phone] Test Performed by [facility] [employer], [address] [place] [address] [facility] Work Phone: [phone] Hemogram w/ Autodiffon 09-24 Abs Baso Cnt 0.2 10*3/uL Normal 0.0-0.2 [facility] Comment on above: Performed By: #### B GLU #### [facility] [employer] [address] [place] [address] Abs Neutrophile Cnt 3.9 10*3/uL Normal 1.8-7.0 [facility] Comment on above: Performed By: #### B GLU #### [facility] [employer] [facility] [address] [place] [address] Basophils/100 WBC (Bld) 3.1 % High 0.0-2.0 [facility] Comment on above: Performed By: #### B GLU #### [facility] [employer] [facility] [address] [place] [address] Eosinophils (Bld) [#/Vol] 0.3 10*3/uL Normal 0.0-0.5 [facility] Comment on above: Performed By: #### B GLU #### [facility] [employer] [facility] [address] [place] [address] Eosinophils/100 WBC (Bld) 4.9 % Normal 1.0-6.0 [facility] Comment on above: Performed By: #### B GLU #### [facility] [address] [place] [address] Erythrocyte distribution width (RBC) [Ratio] 33.7 % High 11.5-14.5 [facility] Comment on above: Performed By: #### B GLU #### [facility] [address] [place] [address] Granulocytes/100 WBC (Bld) 68.1 % Normal 40.0-80.0 [facility] Comment on above: Performed By: #### B GLU #### [facility] [address] [place] [address] Hematocrit (Bld) [Volume fraction] 32.6 % Low 40.0-52.0 [facility] Comment on above: Performed By: #### B GLU #### [facility] [address] [place] [address] Hemoglobin (Bld) [Mass/Vol] 10.3 g/dL Low 13.0-18.0 [facility] Comment on above: Performed By: #### B GLU #### [facility] [address] [place] [address] Lymphocytes (Bld) [#/Vol] 1.0 10*3/uL Normal 1.0-4.3 [facility] Comment on above: Performed By: #### B GLU #### [facility] [address] [place] [address] Lymphocytes/100 WBC (Bld) 17.7 % Low 20.0-40.0 [facility] Comment on above: Performed By: #### B GLU #### [facility] [address] [place] [address] MCH (RBC) [Entitic mass] 26.4 pg Normal 26.0-34.0 [facility] Comment on above: Performed By: #### B GLU #### [facility] [address] [place] [address] MCHC 31.7 % Low 32.0-36.0 [facility] Comment on above: Performed By: #### B GLU #### [facility] [address] [place] [address] MCV (RBC) [Entitic vol] 83.4 fL Normal 80.0-98.0 [facility] Comment on above: Performed By: #### B GLU #### [facility] [address] [place] [address] Monocytes (Bld) [#/Vol] 0.4 10*3/uL Normal 0.0-0.8 [facility] Comment on above: Performed By: #### B GLU #### [facility] [address] [place] [address] Monocytes/100 WBC (Bld) 6.2 % Normal 2.0-10.0 [facility] Comment on above: Performed By: #### B GLU #### [facility] [address] [place] [address] Platelet mean volume (Bld) [Entitic vol] 9.0 fL Normal 7.4-10.4 [facility] Comment on above: Performed By: #### B GLU #### [facility] [address] [place] [address] Platelets (Bld) [#/Vol] 230 10*3/uL Normal 140-440 [facility] Comment on above: Performed By: #### B GLU #### [facility] [address] [place] [address] RBC (Bld) [#/Vol] 3.91 10*6/uL Low 4.40-5.90 [facility] Comment on above: Performed By: #### B GLU #### [facility] [address] [place] [address] WBC (Bld) [#/Vol] 5.7 10*3/uL Normal 3.6-10.7 [facility] Comment on above: Performed By: #### B GLU #### [facility] [address] [place] [address] Magnesiumon 09-24-2020 Magnesium [Mass/Vol] 1.8 mg/dL Normal 1.6-2.3 [facility] Comment on above: Performed By: #### B GLU #### [facility] [address] [place] [address] Magnesium [Mass/Vol] 1.8 mg/dL 1.6 - 2 .3 mg/dL [facility] Work Phone: Metabolic Panelon 09-24-2020 Sodium [Moles/Vol] Slight [facility] Work Phone: NT pro BNPon 09-24-2020 Natriuretic peptide B (Bld) [Mass/Vol] [address] pg/mL High 0-450 [facility] Comment on above: Performed By: #### B GLU #### [facility] [address] [place] [address] Otheron 09-24-2020 Test Performed by [facility], [facility] [address] [place] [address] [facility] Work Phone: RBC MORPHOLOGYon 09-24-2020 Anisocytosis Ql (Bld) Slight [facility] Work Phone: RBC morphology finding Nom (Bld) ABNORMAL [facility] Work Phone: Sodium [Moles/Vol] Moderate [facility] Work Phone: Test Performed by [facility] [employer], [facility] [address] [place], [place] [id number] [place], [place] [address]A Work Phone: RBC Morphologyon 09-24-2020 Acanthocytes Slight Normal [facility] Comment on above: Performed By: #### B GLU #### [facility] [address] [place] [address] Anisocytosis Ql (Bld) Slight Normal [facility] Comment on above: Performed By: #### B GLU #### [facility] [address] [place] [address] Elliptocytes Slight Normal [facility] Comment on above: Performed By: #### B GLU #### [facility] [address] [place] [address] Hypochromia Moderate Normal [facility] Comment on above: Performed By: #### B GLU #### [facility] [address] [place] [address] Macrocytosis Slight Normal [facility] Comment on above: Performed By: #### B GLU #### [facility] [address] [place] [address] Poikilocytosis Slight Normal [facility] Comment on above: Performed By: #### B GLU #### [facility] [address] [place] [address] Polychromasia Slight Normal [facility] Comment on above: Performed By: #### B GLU #### [facility] [address] [place] [address] RBC morphology finding Nom (Bld) ABNORMAL Normal [facility] Comment on above: Performed By: #### B GLU #### [facility] [address] [place] [address] Basic Metabolic Panelon 03-0 Anion gap [Moles/Vol] 10 mmol/L Normal 3-13 [facility] Comment on above: Performed By: #### L IPD2, BMP3, MG3 #### [facility] [address] [place] [address] Calcium [Mass/Vol] 9.0 mg/dL Normal 8.4-10.4 [facility] Comment on above: Performed By: #### L IPD2, BMP3, MG3 #### [facility] [address] [place] [address] CO2 [Moles/Vol] 30 mmol/L Normal 22-30 [facility] Comment on above: Performed By: #### L IPD2, BMP3, MG3 #### [facility] [address] [place] [address] Glucose [Mass/Vol] 110 mg/dL High 70-100 [facility] Comment on above: Performed By: #### L IPD2, BMP3, MG3 #### [facility] [address] [place] [address] Urea nitrogen [Mass/Vol] 42 mg/dL High 7-20 [facility] Comment on above: Performed By: #### L IPD2, BMP3, MG3 #### [facility] [address] [place] [address] Creatinine [Mass/Vol] 2.38 mg/dL High 0.52-1.25 [facility] Comment on above: Performed By: #### L IPD2, BMP3, MG3 #### [facility] [address] [place] [address] GFR/1.73 sq M.predicted among blacks MDRD (S/P/Bld) [Vol rate/Area] 28.5 mL/min/{1.73_m2} Abnormal >60 [facility] Comment on above: Performed By: #### L IPD2, BMP3, MG3 #### [facility] [address] [place] [address] GFR/1.73 sq M.predicted among non-blacks MDRD (S/P/Bld) [Vol rate/Area] 24.6 mL/min/{1.73_m2} Abnormal >60 [facility] Comment on above: Result Comment: KDIG [...] By: #### L IPD2, BMP3, MG3 #### [facility] [address] [facility] [place] [address] Potassium [Moles/Vol] 3.5 mmol/L Normal 3.5-5.1 [facility] Comment on above: Result Comment: Slig htly hemolysed, interpret with caution. Performed By: #### L IPD2, BMP3, MG3 #### [facility] [address] [facility] [place] [address] Sodium [Moles/Vol] 137 mmol/L Normal 135-145 [facility] Comment on above: Performed By: #### L IPD2, BMP3, MG3 #### [facility] [address] [place] [address] Chloride [Moles/Vol] 97 mmol/L Low 98-107 [facility] [employer] [facility] Comment on above: Performed By: #### L IPD2, BMP3, MG3 #### [facility] [address] [place] [address] Anion gap [Moles/Vol] 10 mmol/L 3 - 13 mmol/L [facility] Work Phone: Calcium [Mass/Vol] 9.0 mg/dL 8.4 - 10. 4 mg/dL [facility] Work Phone: Chloride [Moles/Vol] 97 mmol/L Low 98 - 10 7 mmol/L [facility] Work Phone: CO2 [Moles/Vol] 30 mmol/L 22 - 30 mmol/L [facility] Work Phone: Creatinine [Mass/Vol] 2.38 mg/dL High 0.52 - 1.25 mg/dL [facility] Work Phone: EGFR IF NonAfrican [place] 24.6 mL/min Abnormal >60 [facility] Work Phone: Comment on above: [...] (S/P/Bld) [Vol rate/Area] 28.5 mL/min/{1.73_m2} Abnormal >60 [facility] Work Phone: Glucose [Mass/Vol] 110 mg/dL High 70 - 100 mg/dL [facility] Work Phone: [phone] Interpretation and review of laboratory results Abnormal [facility] Work Phone: [phone] Potassium [Moles/Vol] 3.5 mmol/L 3.5 - 5.1 mmol/L [facility] Work Phone: [phone] Comment on above: Slightly hemolysed, interpret with caution. Sodium [Moles/Vol] 137 mmol/L 135 - 145 mmol/L [facility] Work Phone: [phone] Urea nitrogen [Mass/Vol] 42 mg/dL High 7 - 20 mg/d L [facility] Work Phone: [phone] CBC Auto Differentialon 03-0 Absolute Baso # 0.2 10*3/uL 0.0 - 0.2 10*3/uL [facility] Work Phone: [phone] Absolute Neut # 4.0 10*3/uL 1.8 - 7.0 10*3/uL [facility] Work Phone: [phone] Basophils/100 WBC (Bld) 2.6 % High 0.0 - 2.0 % [facility] Work Phone: [phone] Eosinophils (Bld) [#/Vol] 0.2 10*3/uL 0.0 - 0.5 10*3/uL [facility] Work Phone: [phone] Eosinophils/100 WBC (Bld) 3.5 % 1.0 - 6.0 % [facility] Work Phone: [phone] Erythrocyte distribution width (RBC) [Ratio] 33.2 % High 11.5 - 14.5 % [facility] Work Phone: [phone] Granulocytes/100 WBC (Bld) 67.9 % 40.0 - 80.0 % [facility] Work Phone: [phone] Hematocrit (Bld) [Volume fraction] 34.2 % Low 40.0 - 52.0 % [facility] Work Phone: [phone] Hemoglobin (Bld) [Mass/Vol] 11.0 g/dL Low 13.0 - 18.0 g/dL [facility] Work Phone: [phone] Interpretation and review of laboratory results Abnormal [facility] Work Phone: [phone] Lymphocytes (Bld) [#/Vol] 1.2 10*3/uL 1.0 - 4.3 10*3/uL [facility] Work Phone: 1 Lymphocytes/100 WBC (Bld) 19.7 % Low 20.0 - 40.0 % [facility] Work Phone: 1 MCH (RBC) [Entitic mass] 26.6 pg 26. 0 - 34.0 pg [facility] Work Phone: 1 MCHC (RBC) [Mass/Vol] 32.1 % 32.0 - 36.0 % [facility] Work Phone: 1 MCV (RBC) [Entitic vol] 82.6 fL 80.0 - 98.0 fL [employer] Work Phone: Monocytes (Bld) [#/Vol] 0.4 10*3/uL 0.0 - 0.8 10*3/uL [employer] Work Phone: Monocytes/100 WBC (Bld) 6.3 % 2.0 - 10.0 % [employer] Work Phone: 1 Platelet mean volume (Bld) [Entitic vol] 8.5 fL 7.4 - 10.4 fL [employer] Work Phone: Platelets (Bld) [#/Vol] 245 10*3/uL 140 - 440 10*3/uL [employer] Work Phone: Comment on above: Clumped Platelets Revised: Comment was added, verified by TNM at 05:20 on 09/23/20 RBC (Bld) [#/Vol] 4.14 10*6/uL Low 4.40 - 5.9 0 10*6/uL [employer] Work Phone: WBC (Bld) [#/Vol] 5.9 10*3/uL 3.6 - 10.7 10*3/uL [employer] Work Phone: [phone] Performed by [employer] [facility], [address] [place] [id number] [employer] Work Phone: [phone] Hemogram w/ Autodiffon 09-23 Platelets (Bld) [#/Vol] 245 10*3/uL Normal 140-440 [facility] Comment on above: Result Comment: Clum ped Platelets Revised: Comment was added, verified by TNM at 05:20 on 09/23/20 Performed By: #### B NP3, TROPN, BMP3, HEMDF #### [facility] [address] [place] [address] Abs Baso Cnt 0.2 10*3/uL Normal 0.0-0.2 [facility] Comment on above: Performed By: #### B NP3, TROPN, BMP3, HEMDF #### [facility] [address] [place] [address] Abs Neutrophile Cnt 4.0 10*3/uL Normal 1.8-7.0 [facility] Comment on above: Performed By: #### B NP3, TROPN, BMP3, HEMDF #### [facility] [address] [place] [address] Basophils/100 WBC (Bld) 2.6 % High 0.0-2.0 [facility] Comment on above: Performed By: #### B NP3, TROPN, BMP3, HEMDF #### [facility] [address] [place] [address] Eosinophils (Bld) [#/Vol] 0.2 10*3/uL Normal 0.0-0.5 [facility] Comment on above: Performed By: #### B NP3, TROPN, BMP3, HEMDF #### [facility] [address] [place] [address] Eosinophils/100 WBC (Bld) 3.5 % Normal 1.0-6.0 [facility] Comment on above: Performed By: #### B NP3, TROPN, BMP3, HEMDF #### [facility] [address] [place] [address] Erythrocyte distribution width (RBC) [Ratio] 33.2 % High 11.5-14.5 [facility] Comment on above: Performed By: #### B NP3, TROPN, BMP3, HEMDF #### [facility] [address] [place] [address] Granulocytes/100 WBC (Bld) 67.9 % Normal 40.0-80.0 [facility] Comment on above: Performed By: #### B NP3, TROPN, BMP3, HEMDF #### [facility] [address] [place] [address] Hematocrit (Bld) [Volume fraction] 34.2 % Low 40.0-52.0 [facility] Comment on above: Performed By: #### B NP3, TROPN, BMP3, HEMDF #### [facility] [address] [place] [address] Hemoglobin (Bld) [Mass/Vol] 11.0 g/dL Low 13.0-18.0 [facility] Comment on above: Performed By: #### B NP3, TROPN, BMP3, HEMDF #### [facility] [address] [place] [address] Lymphocytes (Bld) [#/Vol] 1.2 10*3/uL Normal 1.0-4.3 [facility] Comment on above: Performed By: #### B NP3, TROPN, BMP3, HEMDF #### [facility] [address] [place] [address] Lymphocytes/100 WBC (Bld) 19.7 % Low 20.0-40.0 [facility] Comment on above: Performed By: #### B NP3, TROPN, BMP3, HEMDF #### [facility] [address] [place] [address] MCH (RBC) [Entitic mass] 26.6 pg Normal 26.0-34.0 [facility] Comment on above: Performed By: #### B NP3, TROPN, BMP3, HEMDF #### [facility] [address] [place] [address] MCHC 32.1 % Normal 32.0-36.0 [facility] Comment on above: Performed By: #### B NP3, TROPN, BMP3, HEMDF #### [facility] [address] [place] [address] MCV (RBC) [Entitic vol] 82.6 fL Normal 80.0-98.0 [facility] Comment on above: Performed By: #### B NP3, TROPN, BMP3, HEMDF #### [facility] [address] [place] [address] Monocytes (Bld) [#/Vol] 0.4 10*3/uL Normal 0.0-0.8 [facility] Comment on above: Performed By: #### B NP3, TROPN, BMP3, HEMDF #### [facility] [address] [place] [address] Monocytes/100 WBC (Bld) 6.3 % Normal 2.0-10.0 [facility] Comment on above: Performed By: #### B NP3, TROPN, BMP3, HEMDF #### [facility] [address] [place] [address] Platelet mean volume (Bld) [Entitic vol] 8.5 fL Normal 7.4-10.4 [facility] Comment on above: Performed By: #### B NP3, TROPN, BMP3, HEMDF #### [facility] [address] [place] [address] RBC (Bld) [#/Vol] 4.14 10*6/uL Low 4.40-5.90 [facility] Comment on above: Performed By: #### B NP3, TROPN, BMP3, HEMDF #### [facility] [address] [place] [address] WBC (Bld) [#/Vol] 5.9 10*3/uL Normal 3.6-10.7 [facility] Comment on above: Performed By: #### B NP3, TROPN, BMP3, HEMDF #### [facility] [address] [place] [address] Hepatic Functionon 1 ALP [Catalytic activity/Vol] 104 U/L Normal 38-126 [facility] Comment on above: Result Comment: Slig htly hemolysed, interpret with caution. Performed By: #### B NP3, TROPN, BMP3, HEMDF #### [facility] [address] [place] [address] ALT [Catalytic activity/Vol] 27 U/L Normal 0-49 [facility] Comment on above: Result Comment: The ALT test is performed by an updated assay method. Please note that the reference intervals have been changed and are now sex specific. Performed By: #### B NP3, TROPN, BMP3, HEMDF #### [facility] [address] [place] [address] AST [Catalytic activity/Vol] 56 U/L High 15-46 [facility] Comment on above: Performed By: #### B NP3, TROPN, BMP3, HEMDF #### [facility] [address] [place] [address] Bilirubin [Mass/Vol] 1.9 mg/dL High 0.2-1.3 [facility] Comment on above: Performed By: #### B NP3, TROPN, BMP3, HEMDF #### [facility] [address] [place] [address] Bilirubin.indirect [Mass/Vol] 0.0 mg/dL Normal 0.0-0.3 [facility] Comment on above: Performed By: #### B NP3, TROPN, BMP3, HEMDF #### [facility] [address] [place] [address] Protein [Mass/Vol] 6.6 g/dL Normal 6.3-8.2 [facility] Comment on above: Performed By: #### B NP3, TROPN, BMP3, HEMDF #### [facility] [address] [place] [address] Albumin [Mass/Vol] 3.6 g/dL Normal 3.5-5.0 [facility] Comment on above: Performed By: #### B NP3, TROPN, BMP3, HEMDF #### [facility] [address] [place] [address] Hepatic Function Panelon Albumin [Mass/Vol] 3.6 g/dL 3.5 - 5.0 g/dL [facility] Work Phone: ALP [Catalytic activity/Vol] 104 U/L 38 - 126 U/L [facility] Work Phone: Comment on above: Slightly hemolysed, interpret with caution. ALT [Catalytic activity/Vol] 27 U/L 0 - 49 U/L [facility] Work Phone: 1 Comment on [...] Interpretation and review of laboratory results Abnormal [facility] Work Phone: Protein [Mass/Vol] 6.6 g/dL 6.3 - 8.2 g/dL [facility] Work Phone: Test Performed by [employer], [address] [place], [place] [address] [facility] Work Phone: 1 Magnesiumon 09-23-2020 Magnesium [Mass/Vol] 2.0 mg/dL Normal 1.6-2.3 [facility] [employer] [facility] Comment on above: Performed By: #### L IPD2, BMP3, MG3 #### [facility] [address] [place] [address] Magnesium [Mass/Vol] 2.0 mg/dL 1.6 - 2 .3 mg/dL [facility] Work Phone: 1 Metabolic Panelon 09-23-2020 Sodium [Moles/Vol] Slight [facility] Work Phone: Sodium [Moles/Vol] Moderate [facility] Work Phone: Otheron 09-23-2020 Test Performed by [employer], [address] [place], [place] [address] [facility] Work Phone: 1 RBC MORPHOLOGYon 09-23-2020 Anisocytosis Ql (Bld) Marked [facility] Work Phone: RBC morphology finding Nom (Bld) ABNORMAL [facility] Work Phone: Sodium [Moles/Vol] Present [facility] Work Phone: Test Performed by [facility], [address] [place] [address] [facility] Work Phone: RBC Morphologyon 09-23-2020 Acanthocytes Slight Normal [facility] Comment on above: Performed By: #### B NP3, TROPN, BMP3, HEMDF #### [facility] [address] [place] [address] Anisocytosis Ql (Bld) Marked Normal [facility] Comment on above: Performed By: #### B NP3, TROPN, BMP3, HEMDF #### [facility] [address] [place] [address] [place] Cells Slight Normal [facility] Comment on above: Performed By: #### B NP3, TROPN, BMP3, HEMDF #### [facility] [address] [place] [address] Dimorphic RBCs Present Normal [facility] Comment on above: Performed By: #### B NP3, TROPN, BMP3, HEMDF #### [facility] [address] [place] [address] Elliptocytes Slight Normal [facility] Comment on above: Performed By: #### B NP3, TROPN, BMP3, HEMDF #### [facility] [address] [place] [address] Hypochromia Moderate Normal [facility] Comment on above: Performed By: #### B NP3, TROPN, BMP3, HEMDF #### [facility] [address] [place] [address] Ovalocytes Slight Normal [facility] Comment on above: Performed By: #### B NP3, TROPN, BMP3, HEMDF #### [facility] [address] [place] [address] Poikilocytosis Moderate Normal [facility] Comment on above: Performed By: #### B NP3, TROPN, BMP3, HEMDF #### [facility] [address] [place] [address] Polychromasia Slight Normal [facility] Comment on above: Performed By: #### B NP3, TROPN, BMP3, HEMDF #### [facility] [address] [place] [address] RBC morphology finding Nom (Bld) ABNORMAL Normal [facility] Comment on above: Performed By: #### B NP3, TROPN, BMP3, HEMDF #### [facility] [address] [place] [address] Schistocytes Slight Normal [facility] Comment on above: Performed By: #### B NP3, TROPN, BMP3, HEMDF #### [facility] [address] [place] [address] Target Cells Slight Normal [facility] Comment on above: Performed By: #### B NP3, TROPN, BMP3, HEMDF #### [facility] [address] [place] [address] Add On Lab Teston 09-22-2020 Sodium [Moles/Vol] Accepted [facility] Work Phone: Comment on above: Specimen available & acceptable for analysis. Test Performed by [facility], [address] [place] [id number] [place] [address] Work Phone: Add on test from HISon 09-22 Add on test from HIS Accepted Normal [facility] Comment on above: Result Comment: Spec imen available & acceptable for analysis. Performed By: #### B NP3, TROPN, BMP3, HEMDF #### [facility] [address] [place] [address] Basic Metabolic Panelon 03-0 Anion gap [Moles/Vol] 10 mmol/L Normal 3-13 [facility] Comment on above: Order Comment: SLIGH T HEMOLYSIS Performed By: #### B GLU #### [facility] [address] [place] [address] Calcium [Mass/Vol] 8.1 mg/dL Low 8.4-10.4 [facility] Comment on above: Order Comment: SLIGH T HEMOLYSIS Performed By: #### B GLU #### [facility] [address] [place] [address] CO2 [Moles/Vol] 26 mmol/L Normal 22-30 [facility] Comment on above: Order Comment: SLIGH T HEMOLYSIS Performed By: #### B GLU #### [facility] [address] [place] [address] Glucose [Mass/Vol] 99 mg/dL Normal 70-100 [facility] Comment on above: Order Comment: SLIGH T HEMOLYSIS Performed By: #### B GLU #### [facility] [address] [place] [address] Urea nitrogen [Mass/Vol] 38 mg/dL High 7-20 [facility] Comment on above: Order Comment: SLIGH T HEMOLYSIS Performed By: #### B GLU #### [facility] [address] [place] [address] Creatinine [Mass/Vol] 2.24 mg/dL High 0.52-1.25 [facility] Comment on above: Order Comment: SLIGH T HEMOLYSIS Performed By: #### B GLU #### [facility] [address] [place] [address] GFR/1.73 sq M.predicted among blacks MDRD (S/P/Bld) [Vol rate/Area] 30.7 mL/min/{1.73_m2} Abnormal >60 [facility] Comment on above: Order Comment: SLIGH T HEMOLYSIS Performed By: #### B GLU #### [facility] [address] [place] [address] GFR/1.73 sq M.predicted among non-blacks MDRD (S/P/Bld) [Vol rate/Area] 26.4 mL/min/{1.73_m2} Abnormal >60 [facility] Comment on above: Order Comment: SLIGH [...] secretion. Performed By: #### B GLU #### [facility] [address] [place] [address] Potassium [Moles/Vol] 3.8 mmol/L Normal 3.5-5.1 [facility] Comment on above: Order Comment: SLIGH T HEMOLYSIS Performed By: #### B GLU #### [facility] [address] [place] [address] Chloride [Moles/Vol] 102 mmol/L Normal 98-107 [facility] Comment on above: Order Comment: SLIGH T HEMOLYSIS Performed By: #### B GLU #### [facility] [address] [place] [address] Sodium [Moles/Vol] 139 mmol/L Normal 135-145 [facility] Comment on above: Order Comment: SLIGH T HEMOLYSIS Performed By: #### B GLU #### [facility] [address] [place] [address] Anion gap [Moles/Vol] 10 mmol/L 3 - 13 mmol/L [facility] Work Phone: Calcium [Mass/Vol] 8.1 mg/dL Low 8.4 - 10. 4 mg/dL [facility] Work Phone: Chloride [Moles/Vol] 102 mmol/L 98 - 10 7 mmol/L [facility] Work Phone: CO2 [Moles/Vol] 26 mmol/L 22 - 30 mmol/L [facility] Work Phone: Creatinine [Mass/Vol] 2.24 mg/dL High 0.52 - 1.25 mg/dL [facility] Work Phone: EGFR IF NonAfrican [place] 26.4 mL/min Abnormal >60 [facility] Work Phone: [...] (S/P/Bld) [Vol rate/Area] 30.7 mL/min/{1.73_m2} Abnormal >60 [employer] Work Phone: [phone] Glucose [Mass/Vol] 99 mg/dL 70 - 100 mg/dL [employer] Work Phone: [phone] Potassium [Moles/Vol] 3.8 mmol/L 3.5 - 5.1 mmol/L [facility] Work Phone: [phone] Sodium [Moles/Vol] 139 mmol/L 135 - 145 mmol/L [employer] Work Phone: [phone] Urea nitrogen [Mass/Vol] 38 mg/dL High 7 - 20 mg/d L [employer] Phone: [phone] [facility]Con 09-22-2020 Erythrocyte distribution width (RBC) [Ratio] 34.1 % High 11.5 - 14.5 % [employer] Work Phone: [phone] Hematocrit (Bld) [Volume fraction] 33.6 % Low 40.0 - 52.0 % [employer] Phone: [phone] Hemoglobin (Bld) [Mass/Vol] 10.6 g/dL Low 13.0 - 18.0 g/dL [employer] Phone: [phone] Interpretation and review of laboratory results Abnormal [employer] Phone: [phone] MCH (RBC) [Entitic mass] 26.2 pg 26. 0 - 34.0 pg [employer] Work Phone: MCHC (RBC) [Mass/Vol] 31.6 % Low 32.0 - 36.0 % [employer] Work Phone: [phone] MCV (RBC) [Entitic vol] 82.9 fL 80.0 - 98.0 fL [employer] Work Phone: [phone] Platelet mean volume (Bld) [Entitic vol] 8.5 fL 7.4 - 10.4 fL [employer] Work Phone: [phone] Platelets (Bld) [#/Vol] 207 10*3/uL 140 - 440 10*3/uL [employer] Work Phone: [phone] RBC (Bld) [#/Vol] 4.05 10*6/uL Low 4.40 - 5.9 0 10*6/uL [employer] Work Phone: [phone] WBC (Bld) [#/Vol] 4.8 10*3/uL 3.6 - 10.7 10*3/uL [employer] Work Phone: [phone] Test Performed by [employer], [address] [place] [address] [employer] Work Phone: [phone] CR Chest Portableon 09-23-19 21 CR Chest Portable Patient Name: MEGAN NASCIMENTO Diagnostic Radiology ACCESSION EXAM DATE/TIME PROCEDURE ORDERING PROVIDER [id number] 09/22/2020 09:20 EST CR Chest Portable MAURO PADGETT CPT code 81224 Reason For Exam (CR Chest Portable) chf [...] and Time: 09/22/2020 9:30 am Signed by: EL-SHAAR, MD, AHMAD Transcribed Date and Time: 09/22/2020 9:31 Normal [facility] EKG 12 Leadon 09-22-2020 Chaim, [facility] Incoming Cardiology Results From [facility] - 09/22/2020 10:24 AM EST [facility] Test Date: 2020-09-21 Pat Name: Megan Nascimento Department: [facility] Room: 232 Gender: Janny Head Porter: DONTAO : 1940 Requested By: MAURO PADGETT Order Number: [id number] Reading MD: Camden Pepper Measurements Intervals [place] Rate: 109 P: 0 OK: QRS: -72 QRSD: 122 T: 124 QT: [...] Signed On 09-22-2020 10:23:20 EST by Camdennargis Pepper [facility] Work Phone: [employer] Test Date: 2020-09-21 Pat Name: Megan Nascimento Department: [facility] Room: 232 Gender: M Head Porter: DONATO : 1940 Requested By: MAURO PADGETT Order Number: [id number] Reading : Camden Pepper Measurements Intervals [place] Rate: 109 P: 0 OK: QRS: -72 QRSD: 122 T: 124 QT: [...] Signed On 09-22-2020 10:23:20 EST by Camdennargis Pepper [facility] Work Phone: Hemogramon 09-22-2020 Erythrocyte distribution width (RBC) [Ratio] 34.1 % High 11.5-14.5 [facility] Comment on above: Performed By: #### B GLU #### [facility] [address] [place] [address] Hematocrit (Bld) [Volume fraction] 33.6 % Low 40.0-52.0 [facility] Comment on above: Performed By: #### B GLU #### [facility] [address] [place] [address] Hemoglobin (Bld) [Mass/Vol] 10.6 g/dL Low 13.0-18.0 [facility] Comment on above: Performed By: #### B GLU #### [facility] [address] [place] [address] MCH (RBC) [Entitic mass] 26.2 pg Normal 26.0-34.0 [facility] Comment on above: Performed By: #### B GLU #### [facility] [address] [place] [address] MCHC 31.6 % Low 32.0-36.0 [facility] Comment on above: Performed By: #### B GLU #### [facility] [address] [place] [address] MCV (RBC) [Entitic vol] 82.9 fL Normal 80.0-98.0 [facility] Comment on above: Performed By: #### B GLU #### [facility] [address] [place] [address] Platelet mean volume (Bld) [Entitic vol] 8.5 fL Normal 7.4-10.4 [facility] Comment on above: Performed By: #### B GLU #### [facility] [address] [place] [address] Platelets (Bld) [#/Vol] 207 10*3/uL Normal 140-440 [facility] Comment on above: Performed By: #### B GLU #### [facility] [address] [place] [address] RBC (Bld) [#/Vol] 4.05 10*6/uL Low 4.40-5.90 [facility] Comment on above: Performed By: #### B GLU #### [facility] [address] [place] [address] WBC (Bld) [#/Vol] 4.8 10*3/uL Normal 3.6-10.7 [facility] Comment on above: Performed By: #### B GLU #### [facility] [address] [place] [address] Hepatic Functionon 1 ALP [Catalytic activity/Vol] 100 U/L Normal 38-126 [facility] Comment on above: Order Comment: SLIGH T HEMOLYSIS Performed By: #### B GLU #### [facility] [address] [place] [address] ALT [Catalytic activity/Vol] 25 U/L Normal 0-49 [facility] Comment on above: Order Comment: SLIGH T HEMOLYSIS Result Comment: The ALT test is performed by an updated assay method. Please note that the reference intervals have been changed and are now sex specific. Performed By: #### B GLU #### [facility] [address] [place] [address] AST [Catalytic activity/Vol] 66 U/L High 15-46 [facility] Comment on above: Order Comment: SLIGH T HEMOLYSIS Performed By: #### B GLU #### [facility] [address] [place] [address] Bilirubin [Mass/Vol] 1.9 mg/dL High 0.2-1.3 [facility] Comment on above: Order Comment: SLIGH T HEMOLYSIS Performed By: #### B GLU #### [facility] [address] [place] [address] Protein [Mass/Vol] 6.0 g/dL Low 6.3-8.2 [facility] Comment on above: Order Comment: SLIGH T HEMOLYSIS Performed By: #### B GLU #### [facility] [address] [place] [address] Bilirubin.indirect [Mass/Vol] 0.0 mg/dL Normal 0.0-0.3 [facility] Comment on above: Order Comment: SLIGH T HEMOLYSIS Performed By: #### B GLU #### [facility] [address] [place] [address] Albumin [Mass/Vol] 3.2 g/dL Low 3.5-5.0 [facility] Comment on above: Order Comment: SLIGH T HEMOLYSIS Performed By: #### B GLU #### [facility] [employer] [facility] [address] [place] [address] Hepatic Function Panelon Albumin [Mass/Vol] 3.2 g/dL Low 3.5 - 5.0 g/dL [facility] Work Phone: 1 ALP [Catalytic activity/Vol] 100 U/L 38 - 126 U/L [facility] Work Phone: 1 ALT [Catalytic activity/Vol] 25 U/L 0 - 49 U/L [facility] Work [...] of laboratory results Abnormal [facility] Work Phone: 1 Protein [Mass/Vol] 6.0 g/dL Low 6.3 - 8.2 g/dL [facility] Work Phone: 1 Test Performed by [facility], [address] [place], [place] [address] SLIGHT HEMOLYSIS [facility] Work Phone: 1 Magnesiumon 09-22-2020 Magnesium [Mass/Vol] 1.5 mg/dL Low 1.6-2.3 [facility] [employer] [facility] Comment on above: Order Comment: SLIGH T HEMOLYSIS Performed By: #### B GLU #### [facility] [employer] [facility] [address] [place] [address] Magnesium [Mass/Vol] 1.5 mg/dL Low 1.6 - 2 .3 mg/dL [facility] Work Phone: 1 Otheron 09-22-2020 Interpretation and review of laboratory results Abnormal [facility] Work Phone: Test Performed by [facility] [employer] [facility], [address], [place], [place] [address] SLIGHT HEMOLYSIS [facility] Work Phone: XR CHEST PORTABLEon 09-23-19 21 Chaim, [facility] Incoming Radiology Results From [employer] - 09/22/2020 9:32 AM EST Patient Name: MEGAN NASCIMENTO Diagnostic Radiology ACCESSION EXAM DATE/TIME PROCEDURE ORDERING PROVIDER [id number] 09/22/2020 09:20 EST CR Chest Portable MAURO PADGETT CPT code 64389 Reason For Exam (CR Chest Portable) chf [...] AHMAD Transcribed Date and Time: 09/22/2020 9:31 [facility] Work Phone: Patient Name: MEGAN NASCIMENTO Diagnostic Radiology ACCESSION EXAM DATE/TIME PROCEDURE ORDERING PROVIDER [id number] 09/22/2020 09:20 EST CR Chest Portable MAURO PADGETT CPT code 14648 Reason For Exam (CR Chest Portable) chf [...] on --- Final --- Dictating Physician: MD JEAN, ESTEBAN Signed Date and Time: 09/22/2020 9:30 am Signed by: MD PENA AHMAD Transcribed Date and Time: 09/22/2020 9:31 [facility] Work Phone: Basic Metabolic Panelon 03-0 Calcium [Mass/Vol] 9.3 mg/dL Normal 8.4-10.4 [facility] Comment on above: Performed By: #### L IPD2, BMP3, MG3 #### [facility] [address] [place] [address] Anion gap [Moles/Vol] 13 mmol/L Normal 3-13 [facility] Comment on above: Performed By: #### L IPD2, BMP3, MG3 #### [facility] [address] [place] [address] CO2 [Moles/Vol] 30 mmol/L Normal 22-30 [facility] Comment on above: Performed By: #### L IPD2, BMP3, MG3 #### [facility] [address] [place] [address] Glucose [Mass/Vol] 127 mg/dL High 70-100 [facility] Comment on above: Performed By: #### L IPD2, BMP3, MG3 #### [facility] [address] [place] [address] Urea nitrogen [Mass/Vol] 41 mg/dL High 7-20 [facility] Comment on above: Performed By: #### L IPD2, BMP3, MG3 #### [facility] [address] [place] [address] Creatinine [Mass/Vol] 2.57 mg/dL High 0.52-1.25 [facility] Comment on above: Performed By: #### L IPD2, BMP3, MG3 #### [facility] [address] [place] [address] GFR/1.73 sq M.predicted among blacks MDRD (S/P/Bld) [Vol rate/Area] 26.0 mL/min/{1.73_m2} Abnormal >60 [facility] Comment on above: Performed By: #### L IPD2, BMP3, MG3 #### [facility] [address] [place] [address] GFR/1.73 sq M.predicted among non-blacks MDRD (S/P/Bld) [Vol rate/Area] 22.4 mL/min/{1.73_m2} Abnormal >60 [facility] Comment on above: Result Comment: KDIG [...] By: #### L IPD2, BMP3, MG3 #### [facility] [address] [place] [address] Chloride [Moles/Vol] 97 mmol/L Low 98-107 [facility] Comment on above: Performed By: #### L IPD2, BMP3, MG3 #### [facility] [address] [place] [address] Potassium [Moles/Vol] 3.8 mmol/L Normal 3.5-5.1 [facility] Comment on above: Performed By: #### L IPD2, BMP3, MG3 #### [facility] [address] [place] [address] Sodium [Moles/Vol] 141 mmol/L Normal 135-145 [facility] Comment on above: Performed By: #### L IPD2, BMP3, MG3 #### [facility] [address] [place] [address] Anion gap [Moles/Vol] 13 mmol/L 3 - 13 mmol/L [facility] Work Phone: [phone] Calcium [Mass/Vol] 9.3 mg/dL 8.4 - 10. 4 mg/dL [facility] Work Phone: [phone] Chloride [Moles/Vol] 97 mmol/L Low 98 - 10 7 mmol/L [facility] Work Phone: [phone] [phone] [Moles/Vol] 30 mmol/L 22 - 30 mmol/L [facility] Work Phone: [phone] Creatinine [Mass/Vol] 2.57 mg/dL High 0.52 - 1.25 mg/dL [facility] Work Phone: [phone] IF NonAfrican Vincentian 22.4 mL/min Abnormal >60 [facility] Work Phone: [phone] Comment on above: KDIGO guidelines pro vide [...] 26.0 mL/min/{1.73_m2} Abnormal >60 [facility] Work Phone: [phone] Glucose [Mass/Vol] 127 mg/dL High 70 - 100 mg/dL [facility] Work Phone: [phone] Interpretation and review of laboratory results Abnormal [facility] Work Phone: [phone] Potassium [Moles/Vol] 3.8 mmol/L 3.5 - 5.1 mmol/L [facility] Work Phone: [phone] Sodium [Moles/Vol] 141 mmol/L 135 - 145 mmol/L [facility] Work Phone: Urea nitrogen [Mass/Vol] 41 mg/dL High 7 - 20 mg/d L [facility] Work Phone: [phone] Test Performed by [employer], [address] [place], [place] [address] [facility] Work Phone: Anion gap [Moles/Vol] 15 mmol/L High 3 - 13 mmol/L [facility] Work Phone: [phone] Calcium [Mass/Vol] 9.2 mg/dL 8.4 - 10. 4 mg/dL [facility] Work Phone: [phone] Chloride [Moles/Vol] 96 mmol/L Low 98 - 10 7 mmol/L [facility] Work Phone: [phone] [phone] [Moles/Vol] 29 mmol/L 22 - 30 mmol/L [facility] Work Phone: [phone] Creatinine [Mass/Vol] 2.48 mg/dL High 0.52 - 1.25 mg/dL [facility] Work Phone: [phone] EGFR IF NonAfrican Vincentian 23.4 mL/min Abnormal >60 [facility] Work Phone: [phone] Comment on above: KDIGO guidelines pro vide [...] (S/P/Bld) [Vol rate/Area] 27.1 mL/min/{1.73_m2} Abnormal >60 [facility] Work Phone: 1 Glucose [Mass/Vol] 128 mg/dL High 70 - 100 mg/dL [facility] Work Phone: [phone] Interpretation and review of laboratory results Abnormal [employer] Work Phone: 1 Potassium [Moles/Vol] 4.1 mmol/L 3.5 - 5.1 mmol/L [facility] Work Phone: 1 Sodium [Moles/Vol] 140 mmol/L 135 - 145 mmol/L [facility] Work Phone: Urea nitrogen [Mass/Vol] 38 mg/dL High 7 - 20 mg/d L [facility] Work Phone: 1 [facility] [place] [address] [employer] Work Phone: Brain Natriuretic Peptideon 09-21-2020 Interpretation and review of laboratory results Abnormal [employer] Work Phone: 1 Natriuretic peptide B (Bld) [Mass/Vol] 59328 pg/mL High 0 - 450 pg/mL [facility] Work Phone: 1 Test Performed by [employer] [address] [employer] Work Phone: Interpretation and review of laboratory results Abnormal [employer] Work Phone: Natriuretic peptide B (Bld) [Mass/Vol] 04624 pg/mL High 0 - 450 pg/mL [facility] Work Phone: Test Performed by [employer], [facility] [employer] [place] [address] [facility] Work Phone: 1 CBC Auto Differentialon 03-0 Absolute Baso # 0.1 10*3/uL 0.0 - 0.2 10*3/uL [facility] Work Phone: Absolute Neut # 3.9 10*3/uL 1.8 - 7.0 10*3/uL [facility] Work Phone: Basophils/100 WBC (Bld) 1.7 % 0.0 - 2.0 % [facility] Work Phone: 1 Eosinophils (Bld) [#/Vol] 0.1 10*3/uL 0.0 - 0.5 10*3/uL [facility] Work Phone: 22 Eosinophils/100 WBC (Bld) 2.0 % 1.0 - 6.0 % [facility] Work Phone: 1 Erythrocyte distribution width (RBC) [Ratio] 34.0 % High 11.5 - 14.5 % [facility] Work Phone: Granulocytes/100 WBC (Bld) 71.9 % 40.0 - 80.0 % [facility] Work Phone: Hematocrit (Bld) [Volume fraction] 37.4 % Low 40.0 - 52.0 % [employer] Work Phone: Hemoglobin (Bld) [Mass/Vol] 11.7 g/dL Low 13.0 - 18.0 g/dL [employer] Work Phone: Interpretation and review of laboratory results Abnormal [employer] Work Phone: Lymphocytes (Bld) [#/Vol] 1.0 10*3/uL 1.0 - 4.3 10*3/uL [facility] Work Phone: Lymphocytes/100 WBC (Bld) 17.5 % Low 20.0 - 40.0 % [employer] Work Phone: MCH (RBC) [Entitic mass] 26.2 pg 26. 0 - 34.0 pg [facility] Work Phone: MCHC (RBC) [Mass/Vol] 31.4 % Low 32.0 - 36.0 % [facility] Work Phone: MCV (RBC) [Entitic vol] 83.6 fL 80.0 - 98.0 fL [facility] Work Phone: Monocytes (Bld) [#/Vol] 0.4 10*3/uL 0.0 - 0.8 10*3/uL [facility] Work Phone: Monocytes/100 WBC (Bld) 6.9 % 2.0 - 10.0 % [facility] Work Phone: ) Platelet mean volume (Bld) [Entitic vol] 8.9 fL 7.4 - 10.4 fL [employer] Work Phone: 1() Platelets (Bld) [#/Vol] 237 10*3/uL 140 - 440 10*3/uL [employer] Work Phone: 1() RBC (Bld) [#/Vol] 4.48 10*6/uL 4.40 - 5.9 0 10*6/uL [employer] Work Phone: 1() WBC (Bld) [#/Vol] 5.5 10*3/uL 3.6 - 10.7 10*3/uL [employer] Work Phone: 1) Test Performed by [facility], [address] [place] [address] [facility] Work Phone: 1) Hemogram w/ Autodiffon 09-21 Abs Baso Cnt 0.1 10*3/uL Normal 0.0-0.2 [facility] Comment on above: Performed By: #### L IPD2, BMP3, MG3 #### [employer] [address] [place] [address] Abs Neutrophile Cnt 3.9 10*3/uL Normal 1.8-7.0 [facility] [employer] Comment on above: Performed By: #### L IPD2, BMP3, MG3 #### [employer] [address] [place] [address] Basophils/100 WBC (Bld) 1.7 % Normal 0.0-2.0 [facility] Comment on above: Performed By: #### L IPD2, BMP3, MG3 #### [employer] [address] [place] [address] Eosinophils (Bld) [#/Vol] 0.1 10*3/uL Normal 0.0-0.5 [facility] [employer] Comment on above: Performed By: #### L IPD2, BMP3, MG3 #### [employer] [address] [place] [address] Eosinophils/100 WBC (Bld) 2.0 % Normal 1.0-6.0 [facility] Comment on above: Performed By: #### L IPD2, BMP3, MG3 #### [facility] [address] [place] [address] Erythrocyte distribution width (RBC) [Ratio] 34.0 % High 11.5-14.5 [facility] Comment on above: Performed By: #### L IPD2, BMP3, MG3 #### [facility] [address] [place] [address] Granulocytes/100 WBC (Bld) 71.9 % Normal 40.0-80.0 [facility] Comment on above: Performed By: #### L IPD2, BMP3, MG3 #### [facility] [address] [place] [address] Hematocrit (Bld) [Volume fraction] 37.4 % Low 40.0-52.0 [facility] Comment on above: Performed By: #### L IPD2, BMP3, MG3 #### [facility] [address] [place] [address] Hemoglobin (Bld) [Mass/Vol] 11.7 g/dL Low 13.0-18.0 [facility] Comment on above: Performed By: #### L IPD2, BMP3, MG3 #### [facility] [address] [place] [address] Lymphocytes (Bld) [#/Vol] 1.0 10*3/uL Normal 1.0-4.3 [facility] Comment on above: Performed By: #### L IPD2, BMP3, MG3 #### [facility] [address] [place] [address] Lymphocytes/100 WBC (Bld) 17.5 % Low 20.0-40.0 [facility] Comment on above: Performed By: #### L IPD2, BMP3, MG3 #### [facility] [address] [place] [address] MCH (RBC) [Entitic mass] 26.2 pg Normal 26.0-34.0 [facility] Comment on above: Performed By: #### L IPD2, BMP3, MG3 #### [facility] [address] [place] [address] MCHC 31.4 % Low 32.0-36.0 [facility] Comment on above: Performed By: #### L IPD2, BMP3, MG3 #### [facility] [address] [place] [address] MCV (RBC) [Entitic vol] 83.6 fL Normal 80.0-98.0 [facility] Comment on above: Performed By: #### L IPD2, BMP3, MG3 #### [facility] [address] [place] [address] Monocytes (Bld) [#/Vol] 0.4 10*3/uL Normal 0.0-0.8 [facility] Comment on above: Performed By: #### L IPD2, BMP3, MG3 #### [facility] [address] [place] [address] Monocytes/100 WBC (Bld) 6.9 % Normal 2.0-10.0 [facility] Comment on above: Performed By: #### L IPD2, BMP3, MG3 #### [facility] [address] [place] [address] Platelet mean volume (Bld) [Entitic vol] 8.9 fL Normal 7.4-10.4 [facility] Comment on above: Performed By: #### L IPD2, BMP3, MG3 #### [facility] [address] [place] [address] Platelets (Bld) [#/Vol] 237 10*3/uL Normal 140-440 [facility] Comment on above: Performed By: #### L IPD2, BMP3, MG3 #### [facility] [address] [place] [address] RBC (Bld) [#/Vol] 4.48 10*6/uL Normal 4.40-5.90 [facility] Comment on above: Performed By: #### L IPD2, BMP3, MG3 #### [facility] [address] [place] [address] WBC (Bld) [#/Vol] 5.5 10*3/uL Normal 3.6-10.7 [facility] Comment on above: Performed By: #### L IPD2, BMP3, MG3 #### [facility] [address] [place] [address] Metabolic Panelon 09-21-2020 Sodium [Moles/Vol] Slight [facility] Work Phone: NT pro BNPon 09-21-2020 Natriuretic peptide B (Bld) [Mass/Vol] 13896 pg/mL High 0-450 [facility] Comment on above: Performed By: #### L IPD2, BMP3, MG3 #### [facility] [address] [place] [address] RBC MORPHOLOGYon 09-21-2020 Anisocytosis Ql (Bld) Moderate [facility] Work Phone: RBC morphology finding Nom (Bld) ABNORMAL [facility] Work Phone: Test Performed by [facility], [facility] [address] [place] [address] [facility] Work Phone: RBC Morphologyon 09-21-2020 Acanthocytes Slight Normal [facility] Comment on above: Performed By: #### L IPD2, BMP3, MG3 #### [facility] [address] [place] [address] Anisocytosis Ql (Bld) Moderate Normal [facility] Comment on above: Performed By: #### L IPD2, BMP3, MG3 #### [facility] [address] [place] [address] Naomi Cells Slight Normal [facility] Comment on above: Performed By: #### L IPD2, BMP3, MG3 #### [facility] [address] [place] [address] Hypochromia Slight Normal [facility] Comment on above: Performed By: #### L IPD2, BMP3, MG3 #### [facility] [address] [place] [address] Poikilocytosis Slight Normal [facility] Comment on above: Performed By: #### L IPD2, BMP3, MG3 #### [facility] [address] [place] [address] RBC morphology finding Nom (Bld) ABNORMAL Normal [facility] Comment on above: Performed By: #### L IPD2, BMP3, MG3 #### [facility] [address] [place] [address] Schistocytes Slight Normal [facility] Comment on above: Performed By: #### L IPD2, BMP3, MG3 #### [facility] [address] [place] [address] Basic Metabolic Panel w/ Ref taz to MGon 09-15-2020 Anion gap [Moles/Vol] 12 mmol/L 3 - 13 mmol/L [facility] Work Phone: Calcium [Mass/Vol] 8.7 mg/dL 8.4 - 10. 4 mg/dL [facility] Work Phone: Chloride [Moles/Vol] 96 mmol/L Low 98 - 10 7 mmol/L [facility] Work Phone: CO2 [Moles/Vol] 29 mmol/L 22 - 30 mmol/L [facility] Work Phone: Creatinine [Mass/Vol] 2.21 mg/dL High 0.52 - 1.25 mg/dL [facility] Work Phone: EGFR IF NonAfrican Vincentian 26.9 mL/min Abnormal >60 [facility] Work Phone: Comment on above: [...] 31.2 mL/min/{1.73_m2} Abnormal >60 [facility] Work Phone: [phone] Glucose [Mass/Vol] 116 mg/dL High 70 - 100 mg/dL [facility] Work Phone: [phone] Interpretation and review of laboratory results Abnormal [facility] Work Phone: [phone] Potassium [Moles/Vol] 3.1 mmol/L Low 3.5 - 5.1 mmol/L [facility] Work Phone: [phone] Sodium [Moles/Vol] 138 mmol/L 135 - 145 mmol/L [facility] Work Phone: [phone] Urea nitrogen [Mass/Vol] 41 mg/dL High 7 - 20 mg/d L [facility] Work Phone: [phone] Test Performed by [employer], [facility] [employer] [place] [address] [facility] Work Phone: [phone] Magnesiumon 09-15-2020 Magnesium [Mass/Vol] 1.7 mg/dL 1.6 - 2 .3 mg/dL [facility] Work Phone: [phone] Test Performed by [employer], [facility] [employer] [place] [address] [facility] Work Phone: [phone] Basic Metabolic Panel w/ Ref taz to MGon 09-14-2020 Anion gap [Moles/Vol] 11 mmol/L 3 - 13 mmol/L [facility] Work Phone: [phone] Calcium [Mass/Vol] 8.5 mg/dL 8.4 - 10. 4 mg/dL [facility] Work Phone: [phone] Chloride [Moles/Vol] 95 mmol/L Low 98 - 10 7 mmol/L [facility] Work Phone: [phone] CO2 [Moles/Vol] 29 mmol/L 22 - 30 mmol/L [facility] Work Phone: [phone] Creatinine [Mass/Vol] 2.12 mg/dL High 0.52 - 1.25 mg/dL [facility] Work Phone: [phone] EGFR IF NonAfrican Vincentian 28.3 mL/min Abnormal >60 [facility] Work Phone: [phone] Comment on above: KDIGO guidelines pro vide [...] (S/P/Bld) [Vol rate/Area] 32.8 mL/min/{1.73_m2} Abnormal >60 [employer] Work Phone: [phone] Glucose [Mass/Vol] 120 mg/dL High 70 - 100 mg/dL [employer] Work Phone: [phone] Interpretation and review of laboratory results Abnormal [facility] Work Phone: [phone] Potassium [Moles/Vol] 5.0 mmol/L 3.5 - 5.1 mmol/L [employer] Work Phone: [phone] Comment on above: Moderately hemolysed , interpret with caution. Sodium [Moles/Vol] 135 mmol/L 135 - 145 mmol/L [employer] Work Phone: [phone] Urea nitrogen [Mass/Vol] 43 mg/dL High 7 - 20 mg/d L [employer] Work Phone: [phone] Test Performed by [employer], [address] [place] [address] [employer] Work Phone: [phone] Anion gap [Moles/Vol] 9 mmol/L 3 - 13 mmol/L [employer] Work Phone: [phone] Calcium [Mass/Vol] 8.6 mg/dL 8.4 - 10. 4 mg/dL [employer] Work Phone: [phone] Chloride [Moles/Vol] 96 mmol/L Low 98 - 10 7 mmol/L [employer] Work Phone: [phone] CO2 [Moles/Vol] 29 mmol/L 22 - 30 mmol/L [employer] Work Phone: [phone] Creatinine [Mass/Vol] 2.53 mg/dL High 0.52 - 1.25 mg/dL [employer] Work Phone: [phone] EGFR IF NonAfrican Vincentian 22.8 mL/min Abnormal >60 [employer] Work Phone: [phone] Comment on above: KDIGO guidelines pro vide [...] (S/P/Bld) [Vol rate/Area] 26.5 mL/min/{1.73_m2} Abnormal >60 [employer] Work Phone: [phone] Glucose [Mass/Vol] 130 mg/dL High 70 - 100 mg/dL [facility] Work Phone: [phone] Interpretation and review of laboratory results Abnormal [employer] Work Phone: [phone] Potassium [Moles/Vol] 3.3 mmol/L Low 3.5 - 5.1 mmol/L [employer] Work Phone: [phone] Sodium [Moles/Vol] 135 mmol/L 135 - 145 mmol/L [employer] Work Phone: [phone] Urea nitrogen [Mass/Vol] 48 mg/dL High 7 - 20 mg/d L [employer] Work Phone: Test Performed by [employer], [place] [address] [facility] Work Phone: [phone] CBCon 09-14-2020 Erythrocyte distribution width (RBC) [Ratio] 34.1 % High 11.5 - 14.5 % [facility] Work Phone: 1 Hematocrit (Bld) [Volume fraction] 33.9 % Low 40 - 52 % [facility] Work Phone: Hemoglobin (Bld) [Mass/Vol] 10.6 g/dL Low 13 - 18 g/dL [facility] Work Phone: Interpretation and review of laboratory results Abnormal [facility] Work Phone: MCH (RBC) [Entitic mass] 25.0 pg Low 26 - 34 pg [facility] Work Phone: MCHC (RBC) [Mass/Vol] 31.4 % Low 32 - 36 % [facility] Work Phone: MCV (RBC) [Entitic vol] 79.8 fL Low 80 - 98 fL [facility] Work Phone: Platelet mean volume (Bld) [Entitic vol] 8.3 fL 7.4 - 10.4 fL [facility] Work Phone: Platelets (Bld) [#/Vol] 225 10*3/uL 140 - 440 10*3/uL [facility] Work Phone: RBC (Bld) [#/Vol] 4.24 10*6/uL Low 4.4 - 5.9 10*6/uL [facility] Work Phone: WBC (Bld) [#/Vol] 5.4 10*3/uL 3.6 - 10.7 10*3/uL [facility] Work Phone: Test Performed by [employer], [facility] [employer] [place] [address] [facility] Work Phone: Erythrocyte distribution width (RBC) [Ratio] 34.2 % High 11.5 - 14.5 % [facility] Work Phone: Hematocrit (Bld) [Volume fraction] 32.3 % Low 40 - 52 % [facility] Work Phone: 1 Hemoglobin (Bld) [Mass/Vol] 10.1 g/dL Low 13 - 18 g/dL [facility] Work Phone: Interpretation and review of laboratory results Abnormal [facility] Work Phone: 1 MCH (RBC) [Entitic mass] 25.1 pg Low 26 - 34 pg [facility] Work Phone: 1 MCHC (RBC) [Mass/Vol] 31.1 % Low 32 - 36 % [facility] Work Phone: 1 MCV (RBC) [Entitic vol] 80.7 fL 80 - 98 fL S [facility] Work Phone: Platelet mean volume (Bld) [Entitic vol] 8.8 fL 7.4 - 10.4 fL [facility] Work Phone: Platelets (Bld) [#/Vol] 230 10*3/uL 140 - 440 10*3/uL [facility] Work Phone: RBC (Bld) [#/Vol] 4.00 10*6/uL Low 4.4 - 5.9 10*6/uL [facility] Work Phone: WBC (Bld) [#/Vol] 6.0 10*3/uL 3.6 - 10.7 10*3/uL [facility] Work Phone: 1 Test Performed by [employer] [facility] [employer] [place] [address] [facility] Work Phone: Magnesiumon 09-14-2020 Magnesium [Mass/Vol] 1.9 mg/dL 1.6 - 2 .3 mg/dL [facility] Work Phone: Comment on above: Moderately hemolysed , interpret with caution. Test Performed by [employer] [facility] [employer] [place] [address] [facility] Work Phone: Magnesium [Mass/Vol] 1.6 mg/dL 1.6 - 2 .3 mg/dL [facility] Work Phone: Test Performed by [employer], [facility] [place] [address] [facility] Work Phone: US RETROPERITONEAL COMPLETEo n 09-14-2020 Chaim, Claudia Incoming Radiology Results From [facility] - 09/14/2020 2:49 PM EST Patient Name: MEGAN NASCIMENTO Ultrasound ACCESSION EXAM DATE/TIME PROCEDURE ORDERING PROVIDER [id number] 09/14/2020 12:50 EST US Retroperitoneal JORJE, VC++ DEVELOPER, CINDY Complete HELADIO CPT code 39581 Reason For Exam (US Retroperitoneal Complete) r/o [...] the bladder to be collapsed around a Barroso catheter. Of incidental note is a moderate amount of ascites. IMPRESSION: No acute process. Ascites. Report Dictated on --- Final --- Dictated: 09/14/2020 2:45 pm Dictating Physician: MD LAN RISA Signed Date and Time: 09/14/2020 2:48 pm Signed by: MD LAN RISA Transcribed Date and Time: 09/14/2020 2:45 [facility] Work Phone: Patient Name: MEGAN NASCIMENTO Ultrasound ACCESSION EXAM DATE/TIME PROCEDURE ORDERING PROVIDER [id number] 09/14/2020 12:50 EST US Retroperitoneal JORJE, VC++ DEVELOPER, CINDY LEIJA CPT code 49252 Reason For Exam (US Retroperitoneal Complete) r/o [...] the bladder to be collapsed around a Barroso catheter. Of incidental note is a moderate amount of ascites. IMPRESSION: No acute process. Ascites. Report Dictated on --- Final --- Dictated: 09/14/2020 2:45 pm Dictating Physician: MD LAN RISA Signed Date and Time: 09/14/2020 2:48 pm Signed by: MD LAN RISA Transcribed Date and Time: 09/14/2020 2:45 [facility] Work Phone: BASIC METABOLIC PANELon 08-22 Anion gap [Moles/Vol] 13 mmol/L 3 - 13 mmol/L [facility] Work Phone: Calcium [Mass/Vol] 8.7 mg/dL 8.4 - 10. 4 mg/dL [facility] Work Phone: Chloride [Moles/Vol] 95 mmol/L Low 98 - 10 7 mmol/L [facility] Work Phone: CO2 [Moles/Vol] 27 mmol/L 22 - 30 mmol/L [facility] Work Phone: Creatinine [Mass/Vol] 3.08 mg/dL High 0.52 - 1.25 mg/dL [facility] Work Phone: EGFR IF NonAfrican Vincentian 18.0 mL/min Abnormal >60 [facility] Work Phone: [...] (S/P/Bld) [Vol rate/Area] 20.9 mL/min/{1.73_m2} Abnormal >60 [facility] Work Phone: Glucose [Mass/Vol] 146 mg/dL High 70 - 100 mg/dL [facility] Work Phone: Interpretation and review of laboratory results Abnormal [employer] Work Phone: Potassium [Moles/Vol] 4.1 mmol/L 3.5 - 5.1 mmol/L [facility] Work Phone: Sodium [Moles/Vol] 134 mmol/L Low 135 - 145 mmol/L [employer] Work Phone: Urea nitrogen [Mass/Vol] 47 mg/dL High 7 - 20 mg/d L [employer] Work Phone: EKG 12 Leadon 09-13-2020 [facility], [facility] Incoming Cardiology Results From [employer] - 09/13/2020 10:50 AM EST [facility] [employer] System Test Date: 2020-09-12 Pat Name: Megan Nascimento Department: [facility] Room: 1323 Gender: M Head Porter: SLAVA : 1940 Requested By: GIBSON DUGAN Order Number: [id number] Reading MD: Judith Diaz Measurements Intervals [place] Rate: 79 P: 18 OK: 167 QRS: 171 QRSD: 130 T: -23 QT: 470 QTc: 539 Interpretive Statements Atrial-sensed ventricular-paced rhythm Electronically Signed On 09-13-2020 10:49:15 EST by Judith Diaz [employer] Work Phone: [employer] Test Date: 2020-09-12 Pat Name: Megan Nascimento Department: 1A1C Room: [facility] Gender: M Head Porter: SLAVA : 1940 Requested By: GIBSON DUGAN Order Number: [id number] Reading MD: Judith Diaz Measurements Intervals [place] Rate: 79 P: 18 OK: 167 QRS: 171 QRSD: 130 T: -23 QT: 470 QTc: 539 Interpretive Statements Atrial-sensed ventricular-paced rhythm Electronically Signed On 09-13-2020 10:49:15 EST by Judith Diaz [employer] Work Phone: [phone] Magnesiumon 09-13-2020 Magnesium [Mass/Vol] 1.6 mg/dL 1.6 - 2 .3 mg/dL [employer] Work Phone: [phone] Otheron 09-13-2020 Test Performed by [employer], [place] [address] [employer] Work Phone: Add On Lab Teston 09-12-2020 Sodium [Moles/Vol] Accepted [employer] Work Phone: Comment on above: Specimen available & acceptable for analysis. Test Performed by [employer], [place] [address] [employer] Work Phone: BASIC METABOLIC PANELon 08-22 Anion gap [Moles/Vol] 14 mmol/L High 3 - 13 mmol/L [employer] Work Phone: [phone] Calcium [Mass/Vol] 8.4 mg/dL 8.4 - 10. 4 mg/dL [employer] Work Phone: [phone] Chloride [Moles/Vol] 97 mmol/L Low 98 - 10 7 mmol/L [employer] Work Phone: [phone] CO2 [Moles/Vol] 26 mmol/L 22 - 30 mmol/L [facility] Work Phone: [phone] Creatinine [Mass/Vol] 2.56 mg/dL High 0.52 - 1.25 mg/dL [employer] Work Phone: [phone] EGFR IF NonAfrican Vincentian 22.5 mL/min Abnormal >60 [employer] Work Phone: [phone] Comment on above: KDIGO guidelines pro vide [...] (S/P/Bld) [Vol rate/Area] 26.1 mL/min/{1.73_m2} Abnormal >60 [facility] Work Phone: [phone] Glucose [Mass/Vol] 160 mg/dL High 70 - 100 mg/dL [facility] Work Phone: [phone] Interpretation and review of laboratory results Abnormal [facility] Work Phone: [phone] Potassium [Moles/Vol] 3.6 mmol/L 3.5 - 5.1 mmol/L [employer] Work Phone: [phone] Sodium [Moles/Vol] 137 mmol/L 135 - 145 mmol/L [employer] Work Phone: [phone] Urea nitrogen [Mass/Vol] 40 mg/dL High 7 - 20 mg/d L [employer] Work Phone: [phone] Test Performed by [employer], [address] [place] [address] [employer] Work Phone: [phone] Brain Natriuretic Peptideon 09-12-2020 Interpretation and review of laboratory results Abnormal [employer] Work Phone: [phone] Natriuretic peptide B (Bld) [Mass/Vol] 30166 pg/mL High 0 - 450 pg/mL [facility] Work Phone: Test Performed by [employer] [address] [employer] Work Phone: CBC Auto Differentialon 08-22 Absolute Baso # 0.0 10*3/uL 0 - 0.2 10*3/uL [facility] Work Phone: 1 Absolute Neut # 3.0 10*3/uL 1.8 - 7 10*3/uL [facility] Work Phone: Basophils/100 WBC (Bld) 0.5 % 0 - 2 % S [facility] Work Phone: Eosinophils (Bld) [#/Vol] 0.0 10*3/uL 0 - 0.5 10*3/uL [employer] Work Phone: Eosinophils/100 WBC (Bld) 0.0 % Low 1 - 6 % [employer] Work Phone: Erythrocyte distribution width (RBC) [Ratio] 34.0 % High 11.5 - 14.5 % [employer] Work Phone: Granulocytes/100 WBC (Bld) 77.3 % 40 - 80 % [employer] Work Phone: Hematocrit (Bld) [Volume fraction] 33.1 % Low 40 - 52 % [employer] Work Phone: Hemoglobin (Bld) [Mass/Vol] 10.2 g/dL Low 13 - 18 g/dL [employer] Work Phone: Interpretation and review of laboratory results Abnormal [employer] Work Phone: Lymphocytes (Bld) [#/Vol] 0.7 10*3/uL Low 1 - 4.3 10*3/uL [employer] Work Phone: Lymphocytes/100 WBC (Bld) 17.3 % Low 20 - 40 % [employer] Work Phone: MCH (RBC) [Entitic mass] 24.8 pg Low 26 - 34 pg [facility] Work Phone: [phone] MCHC (RBC) [Mass/Vol] 30.8 % Low 32 - 36 % [facility] Work Phone: 1 MCV (RBC) [Entitic vol] 80.5 fL 80 - 98 fL S [facility] Work Phone: Monocytes (Bld) [#/Vol] 0.2 10*3/uL 0 - 0.8 10*3/uL [facility] Work Phone: Monocytes/100 WBC (Bld) 4.9 % 2 - 10 % [facility] Work Phone: Platelet mean volume (Bld) [Entitic vol] 8.9 fL 7.4 - 10.4 fL [facility] Work Phone: Platelets (Bld) [#/Vol] 276 10*3/uL 140 - 440 10*3/uL [facility] Work Phone: RBC (Bld) [#/Vol] 4.11 10*6/uL Low 4.4 - 5.9 10*6/uL [facility] Work Phone: WBC (Bld) [#/Vol] 3.9 10*3/uL 3.6 - 10.7 10*3/uL [facility] Work Phone: 1 Test Performed by [employer], [place] [address] [facility] Work Phone: Lactic Acid, Plasmaon 2020 Lactate [Moles/Vol] 1.8 mmol/L 0.7 - 2 mmol/L [facility] Work Phone: Test Performed by [employer], [facility] [place] [address] [facility] Work Phone: Interpretation and review of laboratory results Abnormal [facility] Work Phone: Lactate [Moles/Vol] 2.6 mmol/L Critically high 0.7 - 2 mmol/L [facility] Work Phone: Test Performed by [employer], [facility] [employer] [place] [address] [facility] Work Phone: [phone] Interpretation and review of laboratory results Abnormal [facility] Work Phone: [phone] Lactate [Moles/Vol] 2.8 mmol/L Critically high 0.7 - 2 mmol/L [facility] Work Phone: [phone] Test Performed by [employer], [address] [place] [address] [facility] Work Phone: [phone] Metabolic Panelon 09-12-2020 Sodium [Moles/Vol] Slight [facility] Work Phone: [phone] RBC MORPHOLOGYon 09-12-2020 Anisocytosis Ql (Bld) Slight [facility] Work Phone: [phone] RBC morphology finding Nom (Bld) ABNORMAL [facility] Work Phone: [phone] Test Performed by [employer], [address] [place] [address] [facility] Work Phone: [phone] XR CHEST (2 VW)on 09-12-2020 Patient Name: [id number] Diagnostic Radiology ACCESSION EXAM DATE/TIME PROCEDURE ORDERING PROVIDER [id number] 09/12/2020 09:53 EST CR Chest PA & LAT MD LUIS, MARCELA CPT code 94091 Reason For Exam (CR Chest PA & [...] LAURA Transcribed Date and Time: 09/12/2020 10:00 [facility] Work Phone: [facility], [facility] Incoming Radiology Results From [facility] - 09/12/2020 10:03 AM EST Patient Name: MEGAN NASCIMENTO Diagnostic Radiology ACCESSION EXAM DATE/TIME PROCEDURE ORDERING PROVIDER [id number] 09/12/2020 09:53 EST CR Chest PA & LAT MD LUIS, MARCELA CPT code 13721 Reason For Exam (CR Chest PA & [...] LAURA Transcribed Date and Time: 09/12/2020 10:00 [facility] Work Phone: CT Abdomen Pelvis Wo Contrmarcos ton 09-05-2020 Patient Name: MEGAN NASCIMENTO Computed Tomography ACCESSION EXAM DATE/TIME PROCEDURE ORDERING PROVIDER [id number] 09/05/2020 22:[address] Abdomen/Pelvis (No [id number] -Shamika GLASGOW PO, No IV) CPT code 88439 Reason For Exam (CT Abdomen/Pelvis (No PO, [...] Phone: [facility], [facility] Incoming Radiology Results From [facility] - 09/05/2020 10:43 PM EST Patient Name: MEGAN NASCIMENTO Computed Tomography ACCESSION EXAM DATE/TIME PROCEDURE ORDERING PROVIDER [id number] 09/05/2020 22:[address] Abdomen/Pelvis (No [id number] -Shamika GLASGOW PO, No IV) CPT code 38377 Reason For Exam (CT Abdomen/Pelvis (No PO, [...] Tomography ACCESSION EXAM DATE/TIME PROCEDURE ORDERING PROVIDER [id number] 09/05/2020 22:[address] Abdomen/Pelvis (No [id number] -Shamika GLASGOW PO, No IV) CPT code 49024 Reason For Exam (CT Abdomen/Pelvis (No PO, [...] Transcribed Date and Time: 09/05/2020 10:43 Normal [facility] Comp Metabolic Panelon 09-05 ALP [Catalytic activity/Vol] 107 U/L Normal 38-126 [facility] Comment on above: Performed By: #### B NP3, TROPN, BMP3, HEMDF #### [facility] [address] [place] [address] ALT [Catalytic activity/Vol] 43 U/L Normal 0-49 [facility] Comment on above: Result Comment: The ALT test is performed by an updated assay method. Please note that the reference intervals have been changed and are now sex specific. Performed By: #### B NP3, TROPN, BMP3, HEMDF #### [facility] [address] [place] [address] Calcium [Mass/Vol] 8.9 mg/dL Normal 8.4-10.4 [facility] Comment on above: Performed By: #### B NP3, TROPN, BMP3, HEMDF #### [facility] [address] [place] [address] Glucose [Mass/Vol] 130 mg/dL High 70-100 [facility] Comment on above: Performed By: #### B NP3, TROPN, BMP3, HEMDF #### [facility] [address] [place] [address] Protein [Mass/Vol] 7.1 g/dL Normal 6.3-8.2 [facility] Comment on above: Performed By: #### B NP3, TROPN, BMP3, HEMDF #### [facility] [address] [place] [address] Urea nitrogen [Mass/Vol] 39 mg/dL High 7-20 [facility] Comment on above: Performed By: #### B NP3, TROPN, BMP3, HEMDF #### [facility] [address] [place] [address] Anion gap [Moles/Vol] 15 mmol/L High 3-13 [facility] Comment on above: Performed By: #### B NP3, TROPN, BMP3, HEMDF #### [facility] [address] [place] [address] AST [Catalytic activity/Vol] 84 U/L High 15-46 [facility] Comment on above: Performed By: #### B NP3, TROPN, BMP3, HEMDF #### [facility] [address] [place] [address] Bilirubin [Mass/Vol] 1.9 mg/dL High 0.2-1.3 [facility] Comment on above: Performed By: #### B NP3, TROPN, BMP3, HEMDF #### [facility] [address] [place] [address] CO2 [Moles/Vol] 30 mmol/L Normal 22-30 [facility] Comment on above: Performed By: #### B NP3, TROPN, BMP3, HEMDF #### [facility] [address] [place] [address] Creatinine [Mass/Vol] 2.73 mg/dL High 0.52-1.25 [facility] Comment on above: Performed By: #### B NP3, TROPN, BMP3, HEMDF #### [facility] [address] [place] [address] GFR/1.73 sq M.predicted among blacks MDRD (S/P/Bld) [Vol rate/Area] 24.1 mL/min/{1.73_m2} Abnormal >60 [facility] Comment on above: Performed By: #### B NP3, TROPN, BMP3, HEMDF #### [facility] [address] [place] [address] GFR/1.73 sq M.predicted among non-blacks MDRD (S/P/Bld) [Vol rate/Area] 20.8 mL/min/{1.73_m2} Abnormal >60 [facility] Comment on above: Result Comment: KDIG [...] #### B NP3, TROPN, BMP3, HEMDF #### [facility] [address] [place] [address] Chloride [Moles/Vol] 97 mmol/L Low 98-107 [facility] Comment on above: Performed By: #### B NP3, TROPN, BMP3, HEMDF #### [facility] [address] [place] [address] Potassium [Moles/Vol] 3.9 mmol/L Normal 3.5-5.1 [facility] Comment on above: Performed By: #### B NP3, TROPN, BMP3, HEMDF #### [facility] [address] [place] [address] Sodium [Moles/Vol] 141 mmol/L Normal 135-145 [facility] Comment on above: Performed By: #### B NP3, TROPN, BMP3, HEMDF #### [facility] [address] [place] [address] Albumin [Mass/Vol] 4.3 g/dL Normal 3.5-5.0 [facility] Comment on above: Performed By: #### B NP3, TROPN, BMP3, HEMDF #### [facility] [address] [place] [address] Complete Urinalysison 2020 Appearance (U) Clear Normal Clear [facility] Comment on above: Result Comment: . Performed By: #### B NP3, TROPN, BMP3, HEMDF #### [facility] [address] [place] [address] Bacteria Few Abnormal Negative [facility] Comment on above: Result Comment: . Performed By: #### B NP3, TROPN, BMP3, HEMDF #### [facility] [address] [place] [address] Bilirubin,Urine Negative Normal Negative [facility] Comment on above: Result Comment: . Performed By: #### B NP3, TROPN, BMP3, HEMDF #### [facility] [address] [place] [address] Cast, Hyaline 26 - 50 Abnormal Negative [facility] Comment on above: Result Comment: . Performed By: #### B NP3, TROPN, BMP3, HEMDF #### [facility] [address] [place] [address] Color (U) Dark-Yellow Abnormal Lt. Yellow [facility] Comment on above: Result Comment: . Performed By: #### B NP3, TROPN, BMP3, HEMDF #### [facility] [address] [place] [address] Glucose Ql (U) Normal Normal Normal (<70) [facility] [place] [facility] Comment on above: Result Comment: . Performed By: #### B NP3, TROPN, BMP3, HEMDF #### [facility] [address] [place] [address] Ketone,Urine Negative Normal Negative [facility] Comment on above: Result Comment: . Performed By: #### B NP3, TROPN, BMP3, HEMDF #### [facility] [address] [place] [address] Leukocytes,Urine Negative Normal Negative [facility] [place] [facility] Comment on above: Result Comment: . Performed By: #### B NP3, TROPN, BMP3, HEMDF #### [facility] [address] [place] [address] Mucous Threads Few Normal Negative [facility] Comment on above: Result Comment: . Performed By: #### B NP3, TROPN, BMP3, HEMDF #### [facility] [address] [place] [address] Nitrites,Urine Negative Normal Negative [facility] Comment on above: Result Comment: . Performed By: #### B NP3, TROPN, BMP3, HEMDF #### [facility] [address] [place] [address] Non-Squamous Epithelial < 1 Abnormal Negative [facility] Comment on above: Result Comment: . Performed By: #### B NP3, TROPN, BMP3, HEMDF #### [facility] [address] [place] [address] Occult Blood,Urine Negative Normal Negative [facility] Comment on above: Result Comment: . Performed By: #### B NP3, TROPN, BMP3, HEMDF #### [facility] [address] [place] [address] pH,Urine 5.0 Normal 5.0-8.0 [facility] Comment on above: Result Comment: . Performed By: #### B NP3, TROPN, BMP3, HEMDF #### [facility] [address] [place] [address] Protein (U) [Mass/Vol] 30 mg/dL Abnormal Negative [facility] Comment on above: Result Comment: . Performed By: #### B NP3, TROPN, BMP3, HEMDF #### [facility] [address] [place] [address] RBC, Urine 0 - 2 Normal 0-2 [facility] Comment on above: Result Comment: . Performed By: #### B NP3, TROPN, BMP3, HEMDF #### [facility] [address] [place] [address] Specific [place],Urine 1.018 Normal 1.005 - 1.030 [facility] Comment on above: Result Comment: . Performed By: #### B NP3, TROPN, BMP3, HEMDF #### [facility] [address] [place] [address] Squamous Epithelial 0 - 2 Normal 3-5 [facility] Comment on above: Result Comment: . Performed By: #### B NP3, TROPN, BMP3, HEMDF #### [facility] [address] [place] [address] Urobilinogen,Urine 2 mg/dL Abnormal Normal (0-1) [facility] Comment on above: Result Comment: . Performed By: #### B NP3, TROPN, BMP3, HEMDF #### [facility] [address] [place] [address] WBC, Urine 3 - 5 Normal 0-5 [facility] Comment on above: Result Comment: Conf irmed by light microscopy. . Performed By: #### B NP3, TROPN, BMP3, HEMDF #### [facility] [address] [place] [address] Comprehensive Metabolic Pane greg 09-05-2020 Albumin [Mass/Vol] 4.3 g/dL 3.5 - 5 g/dL [facility] Work Phone: [phone] ALP [Catalytic activity/Vol] 107 U/L 38 - 126 U/L [facility] Work Phone: [phone] [Catalytic activity/Vol] 43 U/L 0 - 49 U/L [facility] Work Phone: [phone] Comment on above: The ALT test is perf ormed by an updated assay method. Please note that the reference intervals have been changed and are now sex specific. Anion gap [Moles/Vol] 15 mmol/L High 3 - 13 mmol/L [facility] Work Phone: [phone] AST [Catalytic activity/Vol] 84 U/L High 15 - 46 U/L [facility] Work Phone: [phone] Bilirubin Ql (U) 1.9 mg/dL High 0.2 - 1.3 mg/dL [facility] Work Phone: [phone] Calcium [Mass/Vol] 8.9 mg/dL 8.4 - 10. 4 mg/dL [facility] Work Phone: [phone] Chloride [Moles/Vol] 97 mmol/L Low 98 - 10 7 mmol/L [facility] Work Phone: CO2 [Moles/Vol] 30 mmol/L 22 - 30 mmol/L [facility] Work Phone: [phone] Creatinine [Mass/Vol] 2.73 mg/dL High 0.52 - 1.25 mg/dL [facility] Work Phone: [phone] EGFR IF NonAfrican Vincentian 20.8 mL/min Abnormal >60 [facility] Work Phone: [phone] Comment on above: KDIGO guidelines pro vide [...] 24.1 mL/min/{1.73_m2} Abnormal >60 [facility] Work Phone: [phone] Glucose [Mass/Vol] 130 mg/dL High 70 - 100 mg/dL [facility] Work Phone: Interpretation and review of laboratory results Abnormal [facility] Work Phone: [phone] Potassium [Moles/Vol] 3.9 mmol/L 3.5 - 5.1 mmol/L [facility] Work Phone: [phone] Protein [Mass/Vol] 7.1 g/dL 6.3 - 8.2 g/dL [facility] Work Phone: [phone] Sodium [Moles/Vol] 141 mmol/L 135 - 145 mmol/L [facility] Work Phone: [phone] Urea nitrogen [Mass/Vol] 39 mg/dL High 7 - 20 mg/d L [facility] Work Phone: ED Provider Noteon ED Provider Note [facility] [...] patient come from an ECF, SNF, Rehab, Halfway or other Congregate setting: no (If yes [...] on phone: None Gets together: None Attends christianity service: None Active member of club or [...] more for level 5) ED Triage Vitals [02/16/21 1905] BP Temp Temp Source Pulse Resp SpO2 Height Weight 114/75 97.3 (more content not included)... Normal [facility] Hemogramon 09-05-2020 Erythrocyte distribution width (RBC) [Ratio] 32.9 % High 11.5-14.5 [facility] Comment on above: Performed By: #### B NP3, TROPN, BMP3, HEMDF #### [facility] [address] [place] [address] Hematocrit (Bld) [Volume fraction] 34.6 % Low 40.0-52.0 [facility] Comment on above: Performed By: #### B NP3, TROPN, BMP3, HEMDF #### [facility] [address] [place] [address] Hemoglobin (Bld) [Mass/Vol] 10.8 g/dL Low 13.0-18.0 [facility] Comment on above: Performed By: #### B NP3, TROPN, BMP3, HEMDF #### [facility] [address] [place] [address] MCH (RBC) [Entitic mass] 23.7 pg Low 26.0-34.0 [facility] Comment on above: Performed By: #### B NP3, TROPN, BMP3, HEMDF #### [facility] [address] [place] [address] MCHC 31.1 % Low 32.0-36.0 [facility] Comment on above: Performed By: #### B NP3, TROPN, BMP3, HEMDF #### [facility] [address] [place] [address] MCV (RBC) [Entitic vol] 76.2 fL Low 80.0-98.0 [facility] Comment on above: Performed By: #### B NP3, TROPN, BMP3, HEMDF #### [facility] [address] [place] [address] Platelet mean volume (Bld) [Entitic vol] 8.5 fL Normal 7.4-10.4 [facility] Comment on above: Performed By: #### B NP3, TROPN, BMP3, HEMDF #### [facility] [employer] [facility] [address] [place] [address] Platelets (Bld) [#/Vol] 359 10*3/uL Normal 140-440 [facility] Comment on above: Performed By: #### B NP3, TROPN, BMP3, HEMDF #### [facility] [address] [place] [address] RBC (Bld) [#/Vol] 4.54 10*6/uL Normal 4.40-5.90 [facility] Comment on above: Performed By: #### B NP3, TROPN, BMP3, HEMDF #### [facility] [employer] [facility] [address] [place] [address] WBC (Bld) [#/Vol] 6.5 10*3/uL Normal 3.6-10.7 [facility] Comment on above: Performed By: #### B NP3, TROPN, BMP3, HEMDF #### [facility] [employer] [facility] [address] [place] [address] Hemogram (CBC)on 09-05-2020 Erythrocyte distribution width (RBC) [Ratio] 32.9 % High 11.5 - 14.5 % [facility] Work Phone: [phone] Hematocrit (Bld) [Volume fraction] 34.6 % Low 40 - 52 % [facility] Work Phone: Hemoglobin (Bld) [Mass/Vol] 10.8 g/dL Low 13 - 18 g/dL [facility] Work Phone: Interpretation and review of laboratory results Abnormal [facility] Work Phone: MCH (RBC) [Entitic mass] 23.7 pg Low 26 - 34 pg [facility] Work Phone: MCHC (RBC) [Mass/Vol] 31.1 % Low 32 - 36 % [facility] Work Phone: [phone] MCV (RBC) [Entitic vol] 76.2 fL Low 80 - 98 fL [facility] Work Phone: Platelet mean volume (Bld) [Entitic vol] 8.5 fL 7.4 - 10.4 fL [facility] Work Phone: Platelets (Bld) [#/Vol] 359 10*3/uL 140 - 440 10*3/uL [facility] Work Phone: [phone] RBC (Bld) [#/Vol] 4.54 10*6/uL 4.4 - 5.9 10*6/uL [facility] Work Phone: [phone] WBC (Bld) [#/Vol] 6.5 10*3/uL 3.6 - 10.7 10*3/uL [facility] Work Phone: [phone] Test Performed by [employer], [address] [place], [place] [address] [facility] Work Phone: [phone] Lipaseon 09-05-2020 Lipase [Catalytic activity/Vol] 117 U/L Normal 23-300 [facility] Comment on above: Performed By: #### B NP3, TROPN, BMP3, HEMDF #### [employer] [address] [place] [address] Lipase [Catalytic activity/Vol] 117 U/L 23 - 300 U/L [facility] Work Phone: [phone] Otheron 09-05-2020 Test Performed by [employer], [address] [place], [place] [address] [facility] Work Phone: [phone] US ABDOMEN LIMITED Specify o rgan? GALLBLADDERon 09-05-2020 Patient Name: MEGAN NASCIMENTO Ultrasound ACCESSION EXAM DATE/TIME PROCEDURE ORDERING PROVIDER [id number] 09/05/2020 22:05 EST US Abdomen Limited [id number] Shamika NAGY CPT code 58280 Reason For Exam (US Abdomen Limited) RUQ [...] Phone: [facility], [facility] Incoming Radiology Results From [facility] - 09/05/2020 10:46 PM EST Patient Name: MEGAN NASCIMENTO Ultrasound ACCESSION EXAM DATE/TIME PROCEDURE ORDERING PROVIDER [id number] 09/05/2020 22:05 EST US Abdomen Limited [id number] SANDOVAL CPT code 29178 Reason For Exam (US Abdomen Limited) RUQ [...] Ultrasound ACCESSION EXAM DATE/TIME PROCEDURE ORDERING PROVIDER [id number] 09/05/2020 22:05 EST US Abdomen Limited [id number] LILOShamika CPT code 28661 Reason For Exam (US Abdomen Limited) RUQ [...] Transcribed Date and Time: 09/05/2020 10:[address] [facility] Urinalysison 09-05-2020 Appearance (U) Clear Clear NA [facility] Work Phone: [phone] Comment on above: . Bacteria, UA Few Abnormal Negative /[HPF] [facility] Work Phone: [phone] Comment on above: . Bilirubin Urine Negative Negative mg/dL [facility] Work Phone: [phone] Comment on above: . Color (U) Dark-Yellow Abnormal Lt. Yellow NA [facility] Work Phone: [phone] Comment on above: . Glucose, Ur Normal Normal (<70) mg/dL [facility] Work Phone: [phone] Comment on above: . Hyaline Casts, UA 26-50 Abnormal Negative /[LPF] [facility] Work Phone: [phone] Comment on above: . Interpretation and review of laboratory results Abnormal [facility] Work Phone: [phone] Ql (U) Negative Negative mg/dL [facility] Work Phone: [phone] Comment on above: . LEUKOCYTES, UA Negative Negative Sp/uL [facility] Work Phone: [phone] Comment on above: . Mucous Threads Few Negative /[LPF] [facility] Work Phone: [phone] Comment on above: . Nitrite, Urine Negative Negative NA [facility] Work Phone: [phone] Comment on above: . Non-Squamous Epithelial <1 Abnormal Nega tive /[HPF] [facility] Work Phone: [phone] Comment on above: . Occult Blood,Urine Negative Negative mg/dL [facility] Work Phone: [phone] Comment on above: . pH (U) 5.0 [pH] [facility] Work Phone: [phone] Comment on above: . Protein (U) [Mass/Vol] 30 mg/dL Abnormal Negative [facility] [facility] Work Phone: [phone] Comment on above: . RBC (U) [#/Vol] 0-2 0 - 2 /[HPF] [facility] Work Phone: [phone] Comment on above: . Specific [place], Urine 1.018 S [facility] Work Phone: [phone] Comment on above: . Squam Epithel, UA 0-2 3 - 5 /[HPF] [employer] Work Phone: [phone] Comment on above: . Urobilinogen, Urine 2 mg/dL Abnormal Normal (0-1) [facility] [employer] Work Phone: [phone] Comment on above: . WBC, UA 3-5 0 - 5 /[HPF] [facility] Work Phone: Comment on above: Confirmed by light m icroscopy. . Test Performed by [employer], [address] [place], [place] [address] [employer] Work Phone: Echo 2D Doppler Coloron 020 TRANSTHORACIC ECHOCARDIOGRAM PATIENT: Megan Nascimento STUDY DATE: 08/23/2020 : 1940 AGE: 80 HT/WT: 172.7 cm (68 85.7 kg in) (188.6 lb) GENDER: M BP: 103 / 48 LOCATION: [employer] PATIENT Outpatient [facility] STATUS: *ORDERING PHYSICIAN: * Ralph Roth MD *READING PHYSICIAN: * Zoë, *WAYBILL CLERK: * Shirin Sim RDCS,AE, PE, RVT INDICATIONS: [...] by Chiquis Camp 08/23/2020 17:30 Prior Signatures: [facility] [place], [place], [facility] Incoming Cardiology Results From [facility] - 08/23/2020 5:31 PM EST TRANSTHORACIC ECHOCARDIOGRAM PATIENT: Megan Nascimento STUDY DATE: 08/23/2020 : 1940 AGE: 80 HT/WT: 172.7 cm (68 85.7 kg in) (188.6 lb) GENDER: M BP: 103 / 48 LOCATION: [facility] PATIENT Outpatient [facility] STATUS: *ORDERING PHYSICIAN: * Ralph Roth MD *READING PHYSICIAN: * Zoë, *WAYBILL CLERK: * Shirin Sim RDCS,AE, PE, RVT INDICATIONS: [...] by Chiquis Camp 08/23/2020 17:30 Prior Signatures: [email or web address] [facility] [place] Echo Complete w/wo Contrasto n 08-23-2020 Echo Complete w/wo Contrast Patient Name: MEGAN NASCIMENTO Ultrasound ACCESSION EXAM DATE/TIME PROCEDURE ORDERING PROVIDER [id number] 08/23/2020 15:09 EST Echo Complete w/wo RALPH ROTH Reason For Exam (Echo Complete w/wo Contrast) sob Report TRANSTHORACIC ECHOCARDIOGRAM PATIENT: Megan Nascimento STUDY DATE: 08/23/2020 : 1940 AGE: 80 HT/WT: 172.7 cm (68 85.7 kg in) (188.6 lb) GENDER: M BP: 103 / 48 LOCATION: [facility] PATIENT Outpatient [facility] STATUS: *ORDERING PHYSICIAN: * Ralph Roth MD *READING PHYSICIAN: * Zoë, *WAYBILL CLERK: * Shirin Sim RDCS,AE, PE, RVT INDICATIONS: [...] [address] St (more content not included)... Normal [facility] Basic Metabolic Panelon 12-0 Anion gap [Moles/Vol] 10 mmol/L [place], [place] Calcium [Mass/Vol] 8.9 mg/dL 8.4 - 10. 4 mg/dL [place] Chloride [Moles/Vol] 96 mmol/L Low 98 - 10 7 mmol/L [place] CO2 [Moles/Vol] 30 mmol/L 22 - 30 mmol/L [place] Creatinine [Mass/Vol] 1.51 mg/dL High 0.52 - 1.25 mg/dL [place] EGFR IF NonAfrican Vincentian 42.7 mL/min Abnormal >60 [place] Comment on above: KDIGO guidelines pro [...] (S/P/Bld) [Vol rate/Area] 49.5 mL/min/{1.73_m2} Abnormal >60 [place] Glucose [Mass/Vol] 111 mg/dL High 70 - 100 mg/dL [place] Interpretation and review of laboratory results Abnormal [place] Potassium [Moles/Vol] 3.7 mmol/L 3.5 - 5.1 mmol/L [place] Sodium [Moles/Vol] 136 mmol/L 135 - 145 mmol/L [place] Urea nitrogen [Mass/Vol] 39 mg/dL High 7 - 20 mg/d L [place] Test Performed by [facility], [address] [place] [id number] [place] CBCon 06-27-2020 Erythrocyte distribution width (RBC) [Ratio] 18.5 % High 11.5 - 14.5 % [place] Hematocrit (Bld) [Volume fraction] 31.1 % Low 40 - 52 % [place] Hemoglobin (Bld) [Mass/Vol] 9.6 g/dL Low 13 - 18 g/dL [place] Interpretation and review of laboratory results Abnormal [place] MCH (RBC) [Entitic mass] 23.2 pg Low 26 - 34 pg [place] MCHC (RBC) [Mass/Vol] 30.7 % Low 32 - 36 % [place] MCV (RBC) [Entitic vol] 75.4 fL Low 80 - 98 fL M [place], [place] Platelet mean volume (Bld) [Entitic vol] 8.1 fL 7.4 - 10.4 fL [place] Platelets (Bld) [#/Vol] 317 10*3/uL 140 - 440 10*3/uL [place] RBC (Bld) [#/Vol] 4.13 10*6/uL Low 4.4 - 5.9 10*6/uL [place] WBC (Bld) [#/Vol] 8.0 10*3/uL 3.6 - 10.7 10*3/uL [place] Test Performed by [facility], [address] [place] [id number] [place] Vital Signs Date Time Vital Sign Value Performing Clinician Facility 04-22-2025 10:43-0400 Inhaled oxygen flow rate 2 L/min Dr. Rigoberto Durand MD Work Phone: [facility] 04-22-2025 10:18-0400 Heart rate 61 /min Dr. Rigoberto Durand MD Work Phone: [facility] 04-22-2025 06:44-0400 Diastolic blood pressure 56 mm[Hg] Dr. Rigoberto Durand MD Work Phone: 5(471)816-894997 [place] [address] 04-22-2025 06:44-0400 Respiratory rate 18 /min Dr. Rigoberto Durand MD Work Phone: 0(540)467-306697 [place] [address] 04-22-2025 06:44-0400 SaO2% (BldA) [Mass fraction] 97 % Dr. Rigoberto Durand MD Work Phone: 0(914)139-174656 [address] 04-22-2025 06:44-0400 Systolic blood pressure 112 mm[Hg] Dr. Rigoberto Durand MD Work Phone: 3(139)670-662744 [place] [address] 04-21-2025 09:12-0400 Body temperature 97.7 [degF] Dr. Rigoberto Durand MD Work Phone: 8(666)248-446444 [place] [address] 04-19-2025 19:15-0400 Diastolic blood pressure 60 mm[Hg] Dr. Rigoberto Durand MD Work Phone: 4(112)376-260756 [address] 04-19-2025 19:15-0400 Heart rate 64 /min Dr. Rigoberto Durand MD Work Phone: 9(721)851-266756 [address] 04-19-2025 19:15-0400 Systolic blood pressure 94 mm[Hg] Dr. Rigoberto Durand MD Work Phone: 2(088)477-994697 [place] [address] 04-19-2025 15:44-0400 SaO2% (BldA) [Mass fraction] 92 % Dr. Rigoberto Durand MD Work Phone: 5(950)527-837897 [place] [address] 04-19-2025 08:48-0400 Body temperature 97.7 [degF] Dr. Rigoberto Durand MD Work Phone: 3(712)367-434297 [place] [address] 04-19-2025 08:48-0400 Respiratory rate 17 /min Dr. Rigoberto Durand MD Work Phone: [facility] 04-18-2025 14:00-0400 Diastolic blood pressure 57 mm[Hg] Dr. Rigoberto Durand MD Work Phone: [facility] 04-18-2025 14:00-0400 Heart rate 76 /min Dr. Rigoberto Durand MD Work Phone: [facility] 04-18-2025 14:00-0400 SaO2% (BldA) [Mass fraction] 95 % Dr. Rigoberto Durand MD Work Phone: [facility] 04-18-2025 14:00-0400 Systolic blood pressure 104 mm[Hg] Dr. Rigoberto Durand MD Work Phone: [facility] 04-18-2025 08:28-0400 Body height 170.[address] Rigoberto Durand MD Work Phone: 7(490)980-713697 [place] [address] 04-18-2025 08:28-0400 Body weight 83.[address] Rigoberto Durand MD Work Phone: 0(452)189-902797 [place] [address] 04-18-2025 08:06-0400 Body temperature 97.5 [degF] Dr. Rigoberto Durand MD Work Phone: [facility] 04-18-2025 08:06-0400 Respiratory rate 18 /min Dr. Rigoberto Durand MD Work Phone: [facility] 04-13-2025 05:54-0400 Heart rate 64 /min Dr. Rigoberto Durand MD Work Phone: [facility] 04-13-2025 05:54-0400 Respiratory rate 16 /min Dr. Rigoberto Durand MD Work Phone: [facility] 04-13-2025 05:54-0400 SaO2% (BldA) [Mass fraction] 98 % Dr. Rigoberto Durand MD Work Phone: [facility] 04-13-2025 05:52-0400 Body temperature 98 [degF] Dr. Rigoberto Durand MD Work Phone: [facility] 04-13-2025 05:52-0400 Diastolic blood pressure 67 mm[Hg] Dr. Rigoberto Durand MD Work Phone: [facility] 04-13-2025 05:52-0400 Systolic blood pressure 108 mm[Hg] Dr. Rigoberto Durand MD Work Phone: [facility] 04-13-2025 03:54-0400 Body mass index (BMI) [Ratio] 30.3 kg/m2 Dr. Rigoberto Durand MD Work Phone: 3(317)807-809497 [place] [address] 04-13-2025 03:54-0400 Body weight 87.[address] Rigoberto Durand MD Work Phone: 2(729)645-019444 [place] [address] 04-12-2025 00:18-0400 Body mass index (BMI) [Ratio] 29 kg/m2 Dr. Rigoberto Durand MD Work Phone: 5(975)275-062044 [place] [address] 04-07-2025 14:50-0400 Body temperature 97.9 [degF] Dr. Rigoberto Durand MD Work Phone: 8(760)788-518244 [place] [address] 04-07-2025 14:50-0400 Diastolic blood pressure 64 mm[Hg] Dr. Rigoberto Durand MD Work Phone: 1(373)024-024556 [address] 04-07-2025 14:50-0400 Heart rate 60 /min Dr. Rigoberto Durand MD Work Phone: 1(336)863-633444 [place] [address] 04-07-2025 14:50-0400 Respiratory rate 16 /min Dr. Rigoberto Durand MD Work Phone: 2(202)379-095044 [place] [address] 04-07-2025 14:50-0400 SaO2% (BldA) [Mass fraction] 94 % Dr. Rigoberto Durand MD Work Phone: 5(805)060-830897 [place] [address] 04-07-2025 14:50-0400 Systolic blood pressure 103 mm[Hg] Dr. Rigoberto Durand MD Work Phone: 9(368)402-907444 [place] [address] 04-06-2025 13:44-0400 Body weight 83.[address] Rigoberto Durand MD Work Phone: 1(398)868-390097 [place] [address] 04-05-2025 14:00-0400 Diastolic blood pressure 66 mm[Hg] Dr. Rigoberto Durand MD Work Phone: 1(455)581-619897 [place] [address] 04-05-2025 14:00-0400 Heart rate 68 /min Dr. Rigoberto Durand MD Work Phone: [facility] 04-05-2025 14:00-0400 Respiratory rate 16 /min Dr. Rigoberto Durand MD Work Phone: [facility] 04-05-2025 14:00-0400 SaO2% (BldA) [Mass fraction] 97 % Dr. Rigoberto Durand MD Work Phone: 1(305)522-655197 [place] [address] 04-05-2025 14:00-0400 Systolic blood pressure 121 mm[Hg] Dr. Rigoberto Durand MD Work Phone: 3(331)437-782144 [place] [address] 04-05-2025 04:11-0400 Body mass index (BMI) [Ratio] 28.8 kg/m2 Dr. Rigoberto Durand MD Work Phone: 3(168)545-057444 [place] [address] 04-05-2025 01:49-0400 Body temperature 97.9 [degF] Dr. Rigoberto Durand MD Work Phone: 3(921)917-647856 [address] 04-04-2025 23:54-0400 Body height [address] Rigoberto Durand MD Work Phone: 8(004)574-243044 [place] [address] 04-04-2025 23:54-0400 Body mass index (BMI) [Ratio] 29.7 kg/m2 Dr. Rigoberto Durand MD Work Phone: 0(434)038-663044 [place] [address] 04-04-2025 23:54-0400 Body weight 85.[address] Rigoberto Durand MD Work Phone: [facility] 04-01-2025 16:00-0400 Diastolic blood pressure 81 mm[Hg] Dr. Rigoberto Durand MD Work Phone: 3(326)280-255797 [place] [address] 04-01-2025 16:00-0400 Heart rate 60 /min Dr. Rigoberto Durand MD Work Phone: [facility] 04-01-2025 16:00-0400 SaO2% (BldA) [Mass fraction] 95 % Dr. Rigoberto Durand MD Work Phone: 8(905)382-953897 [place] [address] 04-01-2025 16:00-0400 Systolic blood pressure 128 mm[Hg] Dr. Rigoberto Durand MD Work Phone: [facility] 04-01-2025 15:53-0400 Body temperature 97.5 [degF] Dr. Rigoberto Durand MD Work Phone: [facility] 04-01-2025 15:53-0400 Respiratory rate 21 /min Dr. Rigoberto Durand MD Work Phone: [facility] 04-01-2025 12:34-0400 Body height 170.[address] Rigoberto Durand MD Work Phone: [facility] 04-01-2025 12:34-0400 Body mass index (BMI) [Ratio] 30.7 kg/m2 Dr. Rigoberto Durand MD Work Phone: [facility] 04-01-2025 12:34-0400 Body weight 89.[address] Rigoberto Durand MD Work Phone: [facility] 03-03-2025 14:19-0400 Body height 170.2 cm Petra Dexter [employer] INS[employer]ANCE [employer] - [employer] Work Phone: [facility] 03-03-2025 14:19-0400 Body mass index (BMI) [Ratio] 28.66 kg/m2 Petra Dexter [employer] INSURANCE [employer] - [employer] Work Phone: [facility] 03-03-2025 14:19-0400 Body weight 83.01 kg Petra Dexter [employer] INSURANCE [employer]ENT - [employer] Work Phone: [facility] 03-03-2025 14:19-0400 Diastolic blood pressure 64 mm[Hg] Petra Dexter [employer] INSURANCE [employer]ENT - [employer] Work Phone: [facility] 03-03-2025 14:19-0400 Heart rate 60 /min Petra Durank [employer] INSURANCE AGENT - [employer] Work Phone: [facility] 03-03-2025 14:19-0400 SaO2% (BldA) [Mass fraction] 100 % Petra Renteria [employer] INSURANCE AGENT - [employer] Work Phone: [facility] [employer] 03-03-2025 14:19-0400 Systolic blood pressure 92 mm[Hg] Petra Renteria [employer] INSURANCE [employer]ENT - [employer] Work Phone: [facility] 02-15-2025 08:08-0400 Body temperature 96.3 [degF] Latricia Landa DO Work Phone: [facility] 02-15-2025 08:08-0400 Diastolic blood pressure 76 mm[Hg] Latricia Landa DO Work Phone: [facility] 02-15-2025 08:08-0400 Heart rate 83 /min Latricia Landa DO Work Phone: [facility] 02-15-2025 08:08-0400 Respiratory rate 18 /min Latricia Landa DO Work Phone: [facility] 02-15-2025 08:08-0400 SaO2% (BldA) [Mass fraction] 97 % Latricia Landa DO Work Phone: [facility] 02-15-2025 08:08-0400 Systolic blood pressure 137 mm[Hg] Latricia Landa DO Work Phone: [facility] 02-12-2025 08:18-0400 Body height 170.2 cm Latricia Landa DO Work Phone: [facility] 02-10-2025 12:06-0400 Body mass index (BMI) [Ratio] 28.51 kg/m2 Latricia Landa DO Work Phone: [facility] 02-10-2025 12:06-0400 Body weight 82.56 kg Latricia Landa DO Work Phone: [facility] 02-01-2025 15:24-0400 Body temperature 97 [degF] Latricia Landa DO Work Phone: [employer] 02-01-2025 15:24-0400 Diastolic blood pressure 75 mm[Hg] Latricia Landa DO Work Phone: [facility] 02-01-2025 15:24-0400 Heart rate 79 /min Latricia Landa DO Work Phone: [facility] 02-01-2025 15:24-0400 Respiratory rate 18 /min Latricia Landa DO Work Phone: [facility] 02-01-2025 15:24-0400 SaO2% (BldA) [Mass fraction] 97 % Latricia Landa DO Work Phone: [facility] 02-01-2025 15:24-0400 Systolic blood pressure 122 mm[Hg] Latricia Landa DO Work Phone: [facility] 02-01-2025 02:16-0400 Body mass index (BMI) [Ratio] 29.23 kg/m2 Latricia Landa DO Work Phone: [facility] 02-01-2025 02:16-0400 Body weight 84.64 kg Latricia Landa DO Work Phone: [facility] 01-31-2025 11:14-0400 Body height 170.2 cm Latricia Landa DO Work Phone: [facility] 01-26-2025 15:46-0400 Body height 170.2 cm Ralph Roth MD Work Phone: [facility] 01-26-2025 15:46-0400 Body mass index (BMI) [Ratio] 30.48 kg/m2 Ralph Roth MD Work Phone: [facility] 01-26-2025 15:46-0400 Body weight 88.27 kg Ralph Roth MD Work Phone: [facility] 01-26-2025 15:46-0400 Diastolic blood pressure 80 mm[Hg] Ralph Roth MD Work Phone: [facility] 01-26-2025 15:46-0400 Heart rate 79 /min Ralph Roth MD Work Phone: [facility] 01-26-2025 15:46-0400 SaO2% (BldA) [Mass fraction] 100 % Ralph Roth MD Work Phone: [facility] 01-26-2025 15:46-0400 Systolic blood pressure 124 mm[Hg] Ralph Roth MD Work Phone: [facility] 12-12-2024 15:03-0400 Body temperature 98 [degF] Dr. Rigoberto Durand MD Work Phone: [facility] 12-12-2024 15:03-0400 Diastolic blood pressure 77 mm[Hg] Dr. Rigoberto Durand MD Work Phone: [facility] 12-12-2024 15:03-0400 Heart rate 71 /min Dr. Rigoberto Durand MD Work Phone: [facility] 12-12-2024 15:03-0400 Respiratory rate 19 /min Dr. Rigoberto Durand MD Work Phone: [facility] 12-12-2024 15:03-0400 SaO2% (BldA) [Mass fraction] 95 % Dr. Rigoberto Durand MD Work Phone: [facility] 12-12-2024 15:03-0400 Systolic blood pressure 138 mm[Hg] Dr. Rigoberto Durand MD Work Phone: [facility] 12-12-2024 10:32-0400 Body height 170.[address] Rigoberto Durand MD Work Phone: [facility] 09-22-2024 15:10-0500 Body height 170.2 cm Ralph Roth MD Work Phone: [facility] 09-22-2024 15:10-0500 Body mass index (BMI) [Ratio] 28.19 kg/m2 Ralph Roth MD Work Phone: [facility] 09-22-2024 15:10-0500 Body weight 81.65 kg Ralph Roth MD Work Phone: [facility] 09-22-2024 15:10-0500 Diastolic blood pressure 68 mm[Hg] Ralph Roth MD Work Phone: [facility] 09-22-2024 15:10-0500 Systolic blood pressure 136 mm[Hg] Ralph Roth MD Work Phone: [facility] 01-09-2024 11:03-0400 Body height 170.2 cm Petra Renteria [employer] INSUR[employer] - [employer] Work Phone: [facility] 01-09-2024 11:03-0400 Body mass index (BMI) [Ratio] 28.04 kg/m2 Petra Renteria [employer] INSURANCE AGENT - [employer] Work Phone: [facility] 01-09-2024 11:03-0400 Body weight 81.19 kg Petra Renteria [employer] INSURANCE AGENT - [employer] Work Phone: [facility] 01-09-2024 11:03-0400 Diastolic blood pressure 78 mm[Hg] Petra Durank [employer] INSURANCE AGENT - [employer] Work Phone: [facility] 01-09-2024 11:03-0400 Heart rate 88 /min Petra Renteria [employer] INSURANCE AGENT - [employer] Work Phone: [facility] 01-09-2024 11:03-0400 SaO2% (BldA) [Mass fraction] 97 % Petra Renteria [employer] INSURANCE [employer]ENT - [employer] Work Phone: [facility] 01-09-2024 11:03-0400 Systolic blood pressure 120 mm[Hg] Petra Renteria [employer] INSURANCE [employer]ENT - [employer] Work Phone: [facility] 11-27-2023 09:23-0400 Body temperature 97 [degF] [facility] 11-27-2023 09:23-0400 Diastolic blood pressure 59 mm[Hg] [facility] 11-27-2023 09:23-0400 Heart rate 66 /min [facility] 11-27-2023 09:23-0400 Respiratory rate 12 /min [facility] 11-27-2023 09:23-0400 SaO2% (BldA) [Mass fraction] 98 % [facility] 11-27-2023 09:23-0400 Systolic blood pressure 133 mm[Hg] [facility] 11-27-2023 04:20-0400 Body height 170.18 cm [facility] 11-27-2023 04:20-0400 Body mass index (BMI) [Ratio] 31.1 kg/m2 [facility] 11-27-2023 04:20-0400 Body weight 90.3 kg [facility] 03-12-2023 08:32-0400 Body height 170.2 cm Ralph Roth MD Work Phone: [facility] 03-12-2023 08:32-0400 Body mass index (BMI) [Ratio] 28.66 kg/m2 Ralph Roth MD Work Phone: [facility] 03-12-2023 08:32-0400 Body weight 83.01 kg Ralph Roth MD Work Phone: [facility] 03-12-2023 08:32-0400 Diastolic blood pressure 76 mm[Hg] Ralph Roth MD Work Phone: [facility] 03-12-2023 08:32-0400 Heart rate 77 /min Ralph Roth MD Work Phone: [facility] 03-12-2023 08:32-0400 Respiratory rate 16 /min Ralph Roth MD Work Phone: [facility] 03-12-2023 08:32-0400 SaO2% (BldA) [Mass fraction] 96 % Ralph Roth MD Work Phone: [facility] 03-12-2023 08:32-0400 Systolic blood pressure 120 mm[Hg] Ralph Roth MD Work Phone: [facility] 09-10-2022 09:10-0500 Body height 170.2 cm Petra Renteria APRN - MACHINE HAND Work Phone: [facility] 09-10-2022 09:10-0500 Body mass index (BMI) [Ratio] 28.85 kg/m2 Petra Renteria [employer] INSURANCE AGENT - [employer] Work Phone: [facility] 09-10-2022 09:10-0500 Body weight 83.55 kg Petra Renteria LIFE INSURANCE AGENT - [employer] Work Phone: [facility] 09-10-2022 09:10-0500 Diastolic blood pressure 52 mm[Hg] Petra Renteria [employer] INSURANCE AGENT - [employer] Work Phone: [facility] 09-10-2022 09:10-0500 Heart rate 91 /min Petra Renteria [employer] INSURANCE AGENT - [employer] Work Phone: [facility] 09-10-2022 09:10-0500 Respiratory rate 16 /min Petra Renteria [employer] INSURANCE AGENT - [employer] Work Phone: [facility] 09-10-2022 09:10-0500 SaO2% (BldA) [Mass fraction] 96 % Petra Renteria [employer] INSURANCE AGENT - [employer]ACH[employer] Work Phone: [facility] 09-10-2022 09:10-0500 Systolic blood pressure 102 mm[Hg] Petra Renteria [employer] INSURANCE AGENT - MACHINE [employer] Work Phone: [facility] 03-27-2022 13:36-0400 Body height 170.[address] Rigoberto Durand Work Phone: [facility] Work Phone: 03-27-2022 13:36-0400 Body mass index (BMI) [Ratio] 26.6 kg/m2 Dr. Rigoberto Durand Work Phone: [facility] Work Phone: 03-27-2022 13:36-0400 Body weight 77.[address] Rigoberto Durand Work Phone: [facility] Work Phone: 03-05-2022 11:55-0400 Diastolic blood pressure 62 mm[Hg] Dr. Rigoberto Durand Work Phone: [facility] Work Phone: 03-05-2022 11:55-0400 Heart rate 85 /min Dr. Rigoberto Durand Work Phone: [facility] Work Phone: 03-05-2022 11:55-0400 Respiratory rate 14 /min Dr. Rigoberto Durand Work Phone: [facility] Work Phone: 03-05-2022 11:55-0400 SaO2% (BldA) [Mass fraction] 98 % Dr. Rigoberto Durand Work Phone: [facility] Work Phone: 03-05-2022 11:55-0400 Systolic blood pressure 117 mm[Hg] Dr. Rigoberto Durand Work Phone: [facility] Work Phone: 08-22-2021 13:00-0500 Body temperature 97.8 [degF] Dr. Rigoberto Durand Work Phone: [facility] Work Phone: 08-22-2021 13:00-0500 Diastolic blood pressure 62 mm[Hg] Dr. Rigoberto Durand Work Phone: [facility] Work Phone: 08-22-2021 13:00-0500 Heart rate 76 /min Dr. Rigoberto Durand Work Phone: [facility] Work Phone: 08-22-2021 13:00-0500 Respiratory rate 20 /min Dr. Rigoberto Durand Work Phone: [facility] Work Phone: 08-22-2021 13:00-0500 SaO2% (BldA) [Mass fraction] 97 % Dr. Rigoberto Durand Work Phone: [facility] Work Phone: 08-22-2021 13:00-0500 Systolic blood pressure 120 mm[Hg] Dr. Rigoberto Durand Work Phone: [facility] Work Phone: 08-22-2021 09:02-0500 Body height 170.[address] Rigoberto Durand Work Phone: [facility] Work Phone: 08-22-2021 09:02-0500 Body weight 70.[address] Rigoberto Durand Work Phone: [facility] Work Phone: 08-21-2021 03:00-0500 Inhaled oxygen concentration 100 % Dr. Rigoberto Durand Work Phone: [facility] Work Phone: 08-20-2021 20:36-0500 Body mass index (BMI) [Ratio] 24.4 kg/m2 Dr. Rigoberto Durand Work Phone: [facility] Work Phone: 09-26-2020 07:04-0500 Body Temperature 98.01 [degF] Mauro TAYLORA Work Phone: 09-26-2020 07:04-0500 BP Diastolic 55 mm[Hg] Mauro Redtommy TAYLORA Work Phone: 09-26-2020 07:04-0500 BP Systolic 116 mm[Hg] Mauro TAYLORA Work Phone: 09-26-2020 07:04-0500 Pulse (Heart Rate) 99 /min Mauro TAYLORA Work Phone: 09-26-2020 07:04-0500 Pulse Oximetry 99 % Mauro Redtommy TAYLORA Work Phone: 09-26-2020 07:04-0500 Respiratory Rate 18 /min Mauro Redtommy TAYLORA Work Phone: 09-26-2020 03:56-0500 BMI (Body Mass Index) 27.06 kg/m2 Mauro Redle CLAUDIAA Work Phone: 09-26-2020 03:56-0500 Body weight 78.38 kg Mauro TAYLORA Work Phone: 09-25-2020 15:26-0500 Height 170.2 cm Mauro TAYLORA Work Phone: 09-15-2020 11:45-0500 Body Temperature 96.21 [...] 09-05-2020 22:30-0500 BP Diastolic 79 mm[Hg] RON TAYLORA Work Phone: 09-05-2020 22:30-0500 BP Systolic 119 mm[Hg] RON Morkeila TAYLORA Work Phone: 09-05-2020 22:30-0500 Pulse (Heart Rate) 105 /min NA Morkeila TAYLORA Work Phone: 09-05-2020 22:30-0500 Pulse Oximetry 100 % NA Morah CLAUDIAA Work Phone: 09-05-2020 22:30-0500 Respiratory Rate 18 /min NA Morah CLAUDIAA Work Phone: 09-05-2020 19:05-0500 BMI (Body Mass Index) 29.29 kg/m2 RON CAM Work Phone: 09-05-2020 19:05-0500 Body Temperature 97.3 [degF] RON CAM Work Phone: 09-05-2020 19:05-0500 Body weight 84.82 kg RON CAM Work Phone: 08-29-2020 14:51-0500 BMI (Body Mass Index) 29.49 kg/m2 Ralph Cabrera [facility], [place] 08-29-2020 14:51-0500 Body Temperature 97.2 [degF] [facility] [place] 08-29-2020 14:51-0500 Body weight 85.41 kg [facility] [place] 08-29-2020 14:51-0500 BP Diastolic 72 mm[Hg] Ralph Roth [facility] , [place] 08-29-2020 14:51-0500 BP Systolic 115 mm[Hg] Ralph Roth [facility] , [place] 08-29-2020 14:51-0500 Height 170.2 cm Ralph Roth [facility] , [place] 08-29-2020 14:51-0500 Pulse (Heart Rate) 98 /min [facility] [place] 08-29-2020 14:51-0500 Respiratory Rate 18 /min [facility] [place] 08-22-2020 12:24-0500 BP Diastolic 78 mm[Hg] [facility] [place] 08-22-2020 12:24-0500 BP Systolic 122 mm[Hg] Ralph Roth [facility] , [place] 08-22-2020 12:24-0500 Pulse (Heart Rate) 86 /min [facility] [place] 08-22-2020 10:53-0500 BMI (Body Mass Index) 28.98 kg/m2 Ralph Cabrera [facility], [place] 08-22-2020 10:53-0500 Body Temperature 97.11 [degF] [facility] [place] 08-22-2020 10:53-0500 Body weight 83.92 kg [facility] [place] 08-22-2020 10:53-0500 Respiratory Rate 18 /min Ralph Cabrera [facility], [place] Encounters Encounter Date Encounter Type Care Provider Facility Start: 05-03-[address] [facility] Start: 05-02-2025 End: 05-02-2025 Refill Ralph Roth MD Work Phone: [facility] [place] Comment on above: Acute HFrEF (heart f ailure with reduced ejection fraction) (HCC) (Primary Dx) Start: 04-13-2025 End: 04-13-2025 Emergency department patient visit Dr. Kian Simons DO -Emergency Department Work Phone: Start: 04-12-2025 End: 04-12-[address] Rigoberto Durand MD Work Phone: -Cardiovascular Services Start: 04-12-2025 End: 04-12-[address] Lv Moreno MD -Cardiovascular Services Work Phone: Start: 04-12-2025 End: 04-12-2025 ambulatory Rigoberto Durand Facility:[facility] Start: 04-07-2025 End: 04-30-2025 Evaluation and management of inpatient Dr. Lv Moreno MD -Transitional Care Unit Start: 04-07-2025 Non-patient / Non-visit Dr. Jacquelin Cedillo MD -[facility] Work Phone: Start: 04-06-2025 Non-patient / Non-visit Dr. Jacquelin Cedillo MD -[facility] Work Phone: Start: 04-05-2025 ambulatory Rigoberto Durand Facility:[facility] Start: 04-05-2025 Non-patient / Non-visit Dr. Osbaldo Hutchins MD -[facility] Start: 04-05-2025 End: 04-07-2025 Evaluation and management of inpatient Dr. Rigoberto Durand MD -Progressive Care Unit Work Phone: Start: 04-05-2025 ambulatory Rigoberto Durand Facility:[facility] Start: 04-05-2025 Non-patient / Non-visit Dr. Dasia Durand MD -[facility] Work Phone: Start: 04-01-2025 End: 04-01-2025 Emergency department patient visit Dr. Rigoberto Durand MD Work Phone: -Emergency Department Work Phone: Start: 03-07-2025 End: 03-07-2025 Refill Petra Renteria LIFE INSURANCE AGENT - MACHINE HAND Work Phone: [facility] Comment on above: Chronic HFrEF (heart failure with reduced ejection fraction) (HCC) Start: 03-03-2025 End: 03-03-2025 Office outpatient visit 25 minutes Petra Wick Dexter LIFE INSURANCE AGENT - MACHINE HAND Work Phone: [facility] Comment on above: Non-ischemic cardiom yopathy (CMS/HCC) (HCC) (Primary Dx); Acute HFrEF (heart failure with reduced ejection fraction) (HCC); ICD (implantable cardioverter-defibrillator), biventricular, in situ Start: 03-03-2025 End: 03-03-2025 ambulatory PETRA RENTERIA [facility] Start: 03-02-2025 End: 03-02-2025 ambulatory Jany Bonilla RN [facility] Start: 02-17-2025 End: 02-17-2025 ambulatory Jany Bonilla RN [facility] Start: 02-10-2025 End: 02-15-2025 ambulatory GIBSON ROTH [facility] Start: 02-10-2025 End: 02-15-2025 Evaluation and management of inpatient Latricia Landa Work Phone: [facility] Medical Surgical Unit MSU 4S Comment on above: Cellulitis of lower extremity, unspecified laterality (Primary Dx); Acute HFrEF (heart failure with reduced ejection fraction) (HCC) Start: 02-04-2025 End: 02-04-2025 Telephone encounter Cindy Jorje SULLIVANN - MACHINE HAND Work Phone: [facility] Comment on above: Other (HFdEF) Start: 01-28-2025 End: 01-28-2025 Telephone encounter Ralph Roth MD Work Phone: [facility] Start: 01-28-2025 End: 02-01-2025 Evaluation and management of inpatient Latricia Landa DO Work Phone: [facility] Cardiac Progressive Care Unit PCU 5W Comment on above: Acute systolic conge stive heart failure (HCC) (Primary Dx); Bilateral leg edema; Chronic kidney disease, unspecified CKD stage; AICD (automatic cardioverter/defibrillator) present Start: 01-26-2025 End: 01-26-2025 ambulatory [facility] Start: 01-26-2025 End: 01-26-2025 Office outpatient visit 25 minutes Ralph Roth MD Work Phone: [facility] Comment on above: Primary hypertension (Primary Dx); Acute systolic heart failure (HCC); Acute on chronic clinical systolic heart failure (HCC) Start: 01-12-2025 End: 01-12-2025 ambulatory [facility] Start: 12-12-2024 End: 12-12-2024 Emergency department patient visit Dr. Rigoberto Durand MD Work Phone: -Emergency Department Work Phone: Start: 12-08-2024 End: 12-08-2024 Refill Petra Renteria LIFE INSURANCE AGENT - MACHINE HAND Work Phone: [facility] Comment on above: Acute HFrEF (heart f ailure with reduced ejection fraction) (HCC) Start: 10-06-2024 End: 10-06-2024 ambulatory [facility] Start: 09-27-2024 End: 09-27-[address] Rigoberto Durand MD Work Phone: [facility] Work Phone: Start: 09-27-2024 End: 09-27-[address] Rigoberto Durand MD -Laboratory, [facility] Start: 09-27-2024 End: 09-27-2024 ambulatory Rigoberto Durand Facility:[facility] Start: 09-22-2024 End: 09-22-2024 Office outpatient visit 15 minutes Ralph Roth MD Work Phone: [facility] Comment on above: Chronic HFrEF (heart failure with reduced ejection fraction) (HCC) (Primary Dx) Start: 09-22-2024 End: 09-22-2024 ambulatory [facility] Start: 07-28-2024 End: 07-28-2024 Telephone encounter Di Hernández RN [facility] Start: 07-20-2024 End: 07-20-2024 Refill Ralph Roth MD Work Phone: [facility] Start: 06-15-2024 End: 06-16-2024 Refill Radha Delgado LIFE INSURANCE AGENT - MACHINE HAND Work Phone: [facility] Comment on above: Acute HFrEF (heart f ailure with reduced ejection fraction) (HCC) Start: 05-26-2024 End: 05-26-2024 [facility] Start: 03-19-2024 End: 04-21-2024 Telephone encounter Ralph Roth MD Work Phone: [facility] Comment on above: Med Management Start: 03-18-2024 End: 03-18-2024 Refill Petra Renteria LIFE INSURANCE AGENT - MACHINE HAND Work Phone: [facility] Cardiology Comment on above: Chronic HFrEF (heart failure with reduced ejection fraction) (HCC) Start: 01-09-2024 End: 01-09-2024 Office outpatient visit 25 minutes Petra Renteria LIFE INSURANCE AGENT - MACHINE HAND Work Phone: [facility] Comment on above: Non-ischemic cardiom yopathy (CMS/HCC) ([facility]) (Primary Dx); Primary hypertension; Acute HFrEF (heart failure with reduced ejection fraction) ([facility]); ICD (implantable cardioverter-defibrillator), biventricular, in situ; Other iron deficiency anemia Start: 12-22-2023 Refill Ralph ravi MD Work Phone: [facility] Comment on above: Erectile dysfunction , unspecified erectile dysfunction type Start: 12-18-2023 Refill Lance martinez LIFE INSURANCE AGENT - MACHINE HAND Work Phone: [facility] Comment on above: Acute HFrEF (heart f ailure with reduced ejection fraction) ([facility]) Start: 11-27-2023 End: 11-27-2023 Emergency department patient visit [facility]-Emergency Department Work Phone: Start: 08-29-2023 End: 08-29-2023 ambulatory [facility] Work Phone: Start: 08-29-2023 End: 08-29-2023 Patient encounter procedure [facility] Start: 06-11-2023 Refill Ralph ravi MD Work Phone: [facility] Comment on above: Acute HFrEF (heart f ailure with reduced ejection fraction) ([facility]) Start: 06-02-2023 End: 06-02-2023 ambulatory [facility] Work Phone: Start: 06-02-2023 End: 06-02-2023 Patient encounter procedure [facility] Start: 05-12-2023 Refill Brinda Bourne APRN.MACHINE HAND Work Phone: [facility] Comment on above: Refill Request Start: 03-12-2023 End: 03-12-2023 Office outpatient visit 25 minutes Ralph Roth MD Work Phone: [facility] Comment on above: Hyperlipidemia, unsp ecified hyperlipidemia type Start: 03-08-2023 Refill Brinda Bourne APRN.MACHINE HAND Work Phone: [facility] Comment on above: Refill Request (Sucr alfate ) Start: 03-04-2023 End: 03-04-2023 ambulatory [facility] Work Phone: Start: 03-04-2023 End: 03-04-2023 Patient encounter procedure [facility] Start: 09-10-2022 End: 09-10-2022 Office outpatient visit 25 minutes Petra Renteria APRN [facility] Work Phone: [facility] Comment on above: Acute HFrEF (heart f ailure with reduced ejection fraction) (CMS/HCC) (HCC) (Primary Dx); Presence of cardiac resynchronization therapy defibrillator (ORDER TRACER-D); Non-ischemic cardiomyopathy (CMS/HCC) (HCC) Start: 08-26-2022 End: 08-26-2022 ambulatory [facility] Work Phone: Start: 08-26-2022 End: 08-26-2022 Patient encounter procedure [facility] Start: 08-21-2022 Telephone encounter Ralph lloyd MD Work Phone: [facility] Comment on above: Med Management Erectile dysfunction , unspecified erectile dysfunction type Start: 07-11-2022 Telephone encounter Ralph lloyd MD Work Phone: [facility] Comment on above: Med Management Start: 05-16-2022 End: 05-16-[address] Rigoberto Durand Work Phone: [facility] Work Phone: Start: 05-16-2022 End: 05-16-[address] Rigoberto Durand Work Phone: [facility] Start: 03-27-2022 End: 03-27-[address] Rigoberto Durand Work Phone: [facility] Start: 03-20-2022 End: 08-31-2022 Subsequent hospital visit by physician Ruddy Gates MD Work Phone: [facility] [place] Comment on above: Chronic systolic (co ngestive) heart failure (HCC); Chronic HFrEF (heart failure with reduced ejection fraction) (HCC) Start: 03-05-2022 End: 03-05-[address] Rigoberto Durand Work Phone: [facility] Start: 02-18-2022 End: 02-18-[address] Rigoberto Durand Work Phone: [facility] Gastroenterology Start: 01-30-2022 End: 01-30-[address] Rigoberto Durand Work Phone: [facility] Start: 11-19-2021 End: 11-19-[address] Rigoberto Durand Work Phone: [facility] Gastroenterology Start: 10-25-2021 End: 10-25-[address] Rigoberto Durand Work Phone: [facility] Start: 09-21-2021 End: 09-21-[address] Rigoberto Durand Work Phone: [facility] Gastroenter[facility] Start: 08-31-2021 End: 08-31-[address] Rigoberto Durand Work Phone: [facility] Start: 08-22-2021 Non-patient / Non-visit Dr. Dasia Durand Work Phone: [facility] Inpatient Physicians Start: 08-22-2021 Non-patient / Non-visit Dr. Dasia Durand Work Phone: [facility] Start: 08-22-2021 Non-patient / Non-visit Dr. Dasia Durand Work Phone: [facility] Start: 08-21-2021 Non-patient / Non-visit Dr. Dasia Durand Work Phone: [facility] Start: 08-21-2021 Non-patient / Non-visit Dr. Dasia Durand Work Phone: [facility] Start: 08-21-2021 Non-patient / Non-visit Dr. Dasia Durand Work Phone: [facility] Start: 08-20-2021 Non-patient / Non-visit Dr. Dasia Durand Work Phone: [facility] Start: 08-20-2021 End: 08-22-2021 Evaluation and management of inpatient Dr. Rigoberto Durand Work Phone: [facility]-Intensive Care Unit Start: 08-09-[address] Rigoberto Durand Work Phone: [facility] Start: 07-23-2021 End: 07-23-[address] Rigoberto Durand Work Phone: [facility] Gastroenterology Start: 07-09-[address] Rigoberto Durand Work Phone: [facility] Start: 09-21-2020 End: 09-26-2020 Evaluation and management of inpatient Mauro Padgett Work Phone: [facility] Start: 09-21-2020 End: 09-21-2020 Subsequent hospital visit by physician Cindy Recinos Work Phone: [facility] [address] [facility] Comment on above: Acute on chronic HFr EF (heart failure with reduced ejection fraction) (HCC) Start: 09-11-2020 End: 09-15-2020 Evaluation and management of inpatient Ruddy Gonzalez Yajaira Work Phone: [facility] Comment on above: Acute on chronic HFr EF (heart failure with reduced ejection fraction) (HCC) (Primary Dx) Start: 09-05-2020 End: 09-05-2020 Emergency department patient visit Shamika Glasgow Work Phone: [facility] ED Comment on above: Abdominal pain, righ t upper quadrant (Primary Dx) Start: 08-29-2020 End: 08-29-2020 Subsequent hospital visit by physician Ralph Roth Work Phone: [facility] Comment on above: Iron deficiency anem ia, unspecified iron deficiency anemia type (Primary Dx); Iron malabsorption Start: 08-23-2020 End: 08-23-2020 Subsequent hospital visit by physician Ralph Roth Work Phone: [facility] ECHO Comment on above: Chronic [...] visit by physician Ralph Roth Work Phone: [facility] Comment on above: Iron deficiency anem ia, unspecified iron deficiency anemia type (Primary Dx); Iron malabsorption Start: 06-27-2020 End: 06-27-2020 Subsequent hospital visit by physician Ralph Roth Work Phone: [address] Laboratory Comment on above: Chronic systolic hea rt failure (HCC) Procedures Date Procedure Procedure Detail Performing Clinician Start: 04-22-[address] Rigoberto Durand MD Work Phone: Start: 04-20-[address] Rigoberto Durand MD Work Phone: Start: 04-20-[address] Rigoberto Durand MD Work Phone: Start: 04-19-2025 Plain X-ray abdomen Dr. Rigoberto Durand MD Work Phone: Start: 04-19-2025 Radiologic exam ches t [address] Rigoberto Durand MD Work Phone: Start: 04-15-[address] Rigoberto Durand MD Work Phone: Start: 04-13-2025 Plain X-ray of shoulder Dr. Rigoberto Durand MD Work Phone: Start: 04-13-2025 CT cervical spine wi thout contrast Dr. Rigoberto Durand MD Work Phone: Start: 04-13-[address] Rigoberto rodriguez MD Work Phone: Start: 04-13-2025 CT of head without contrast Dr. Rigoberto Durand MD Work Phone: Start: 04-07-[address] Rigoberto Durand MD Work Phone: Start: 04-07-2025 Red blood cell morphology Dr. Rigoberto Durand MD Work Phone: Start: 04-06-2025 Urnls dip stick/tabl et reagent auto microscopy Dr. Rigoberto Durand MD Work Phone: Start: 04-05-2025 Plain chest X-ray Dr. Fabiana [...] 02-13-2025 Glucose quantitative blood xcpt reagent strip Mlevin Mei MD Work Phone: Start: 02-13-2025 Basic [...] 02-01-2025 Comprehensive metabo lic panel Dena Curtis LIFE INSURANCE AGENT - MACHINE HAND Work Phone: Start: 02-01-2025 Glucose quantitative blood xcpt reagent strip Dee Jones MD Work Phone: Start: 02-01-2025 Glucose quantitative blood xcpt reagent strip Dee Jones MD Work Phone: Start: 02-01-2025 Blood count complete automated Reeya Laura DO Work Phone: Start: 01-31-2025 Glucose quantitative blood xcpt reagent strip Marco Antonio Hall DO Work Phone: Start: 01-31-2025 End: 01-31-2025 Comprehensive metabolic panel Dena Curtis LIFE INSURANCE AGENT - MACHINE HAND Work Phone: Start: 01-31-2025 End: 01-31-2025 Comprehensive [...] Phone: Start: 09-26-2020 Assay of magnesium Tram Renteria Work Phone: Start: 09-26-2020 Basic metabolic pane l calcium total Petra Renteria Work Phone: Start: 09-26-2020 Blood count complete auto&auto difrntl wbc Dat Agnel Work Phone: Start: 09-26-2020 RBC morphology findi ng Nom (Bld) Petra Renteria Work Phone: Start: 09-25-2020 Assay of magnesium Tram Renteria Work Phone: Start: 09-25-2020 Basic metabolic pane l calcium total Petra Renteria Work Phone: Start: 09-25-2020 Blood count complete auto&auto difrntl wbc Dat Angel Work Phone: Start: 09-25-2020 RBC morphology findi ng Nom (Bld) Petra Friedmanlak Work Phone: Start: 09-24-2020 PULSE OXIMETRY, NOCT URNAL SATURATION STUDY Aftab Wick Wilfrido Work Phone: Start: 09-24-2020 Assay of magnesium Tram nely Shamika FriedmanDexter Work Phone: Start: 09-24-2020 Basic metabolic pane l calcium total Petra Shamika FriedmanDexter Work Phone: Start: 09-24-2020 Blood count complete auto&auto difrntl wbc Dat Angel Work Phone: Start: 09-24-2020 Natriuretic peptide Ros vasiliykathy Renteria Work Phone: Start: 09-24-2020 RBC morphology findi ng Nom (Bld) Petra Renteria Work Phone: Start: 09-23-2020 Assay of magnesium Tram nely Shamika Renteria Work Phone: Start: 09-23-2020 Basic metabolic pane l calcium total Petra Friedmanlak Work Phone: Start: 09-23-2020 Blood count complete auto&auto difrntl wbc Dat Angel Work Phone: Start: 09-23-2020 Hepatic function panel Petranely Renteria Work Phone: Start: 09-23-2020 RBC morphology findi ng Nom (Bld) Petra Shamika FriedmanDexter Work Phone: Start: 09-22-2020 ADD ON LAB TEST Mauro Padgett Work Phone: Start: 09-22-2020 Radiologic exam ches t single view Mauro Padgett Work Phone: Start: 09-22-2020 Assay of magnesium Tarm Renteria Work Phone: Start: 09-22-2020 Basic metabolic pane l calcium total Petra Renteria Work Phone: Start: 09-22-2020 Blood count complete automated Petra Renteria Work Phone: Start: 09-22-2020 Hepatic function panel Petra Renteria Work Phone: Start: 09-21-2020 Ecg routine ecg w/le ast 12 lds w/i&r Mauro Griggs Redtommy Work Phone: Start: 09-21-2020 Basic metabolic pane l calcium total Mauro Griggs Redtommy Work Phone: Start: 09-21-2020 Blood count complete auto&auto difrntl wbc Mauro Griggs Redtommy Work Phone: Start: 09-21-2020 Natriuretic peptide Héctor eph D Redtommy Work Phone: Start: 09-21-2020 RBC morphology findi ng Nom (Bld) Mauro Griggs Redtommy Work Phone: Start: 09-21-2020 Basic metabolic pane l calcium total Cindy Recinos Work Phone: Start: 09-21-2020 Natriuretic peptide Bentley Recinos Work Phone: Start: 09-15-2020 Assay of magnesium Sema an Cyrus Work Phone: Start: 09-15-2020 BASIC METABOLIC PANE L W/ REFLEX TO MG FOR LOW K Mackenzie Kobrossi Work Phone: Start: 09-14-2020 Assay of magnesium Sema an Kobrossi Work Phone: Start: 09-14-2020 BASIC METABOLIC PANE [...] REFLEX TO MG FOR LOW K Mackenzie Bridges Work Phone: Start: 09-14-2020 Blood count complete automated Mackenzie Bridges Work Phone: Start: 09-13-2020 Assay of magnesium Violette Vicente Work Phone: Start: 09-13-2020 Basic metabolic pane l calcium total Natan Vicente Work Phone: Start: 09-12-2020 Ecg routine ecg w/le ast 12 lds w/i&r Gibson Dugan Work Phone: Start: 09-12-2020 ADD ON LAB TEST Natan North reycarlos Work Phone: Start: 09-12-2020 Radiologic exam ches [...] Us abdominal real ti me w/image limited J Tammi Glasgow Work Phone: Start: 09-05-2020 Assay of lipase Shamika Glasgow Work Phone: Start: 09-05-2020 Blood count complete automated Shamika Glasgow Work Phone: Start: 09-05-2020 Comprehensive metabo lic panel Shamika Glasgow Work Phone: Start: 09-05-2020 Urnls dip stick/tabl et rgnt auto w/o microscopy Shamika Glasgow Work Phone: Start: 09-05-2020 Ecg routine ecg w/le ast 12 lds w/i&r J Tammi Glasgow Work Phone: Start: 08-23-2020 Echo tthrc r-t 2d w/ wom-mode compl spec&colr d Ralph Roth Work Phone: Start: 06-27-2020 Basic metabolic pane l calcium total Ralph Roth Work Phone: Start: 06-27-2020 Blood count complete automated Ralph Roth Work Phone: Start: 03-16-2013 Colonoscopy Brinda Santoyo on LIFE INSURANCE AGENT.MACHINE HAND Work Phone: Plan of Treatment Date Care Activity Detail Author Start: 08-24-2030 DTaP/Tdap/Td vaccine (2 - Td or Tdap) DTaP/Tdap/Td vaccine (2 - Td or Tdap) [facility] Start: 08-24-2030 DTaP/Tdap/Td vaccine (2 - Td) DTaP/Tdap/Td vaccine (2 - Td) [place] Start: 08-24-2030 DTaP/Tdap/Td Vaccines (2 - Td or Tdap) DTaP/Tdap/Td Vaccines (2 - Td or Tdap) [facility] Start: 03-03-2026 Creatinine measurement Creatinine Level [facility] Start: 03-03-2026 Diabetes: Estimated Glomerular Filtration Rate for [facility] Diabetes: Estimated Glomerular Filtration Rate for [facility] Start: 03-03-2026 Potassium measurement Potassium Level [facility] Start: 02-15-2026 Creatinine measurement Creatinine Level [facility] Start: 02-15-2026 Diabetes: Estimated Glomerular Filtration Rate for [facility] Diabetes: Estimated Glomerular Filtration Rate for [facility] Start: 02-15-2026 Potassium measurement Potassium Level [facility] Start: 02-01-2026 Creatinine measurement Creatinine Level [facility] Start: 02-01-2026 Diabetes: Estimated Glomerular Filtration Rate for [facility] Diabetes: Estimated Glomerular Filtration Rate for [facility] Start: 02-01-2026 Potassium measurement Potassium Level [facility] Start: 01-31-[address] [facility] Start: 2025 End: 2025 Patient encounter procedure 2025 3:00 PM EST Office Visit [facility] [address] [phone] Petra Renteria APRN - MACHINE HAND [address] [address] [facility] Start: 05-11-2025 End: 05-11-2025 Patient encounter procedure 05/11/2025 11:00 AM EDT Office Visit [facility] [address] [facility] [address] [place] [id number] Petra Renteria LIFE INSURANCE AGENT - MACHINE HAND [address] [facility], [address] [address] [facility] Start: 05-10-2025 End: 05-10-2025 Professional / ancillary services management 05/10/2025 4:00 PM EDT Ancillary Procedure [facility] [address] [facility] [place] [id number] [facility] Start: 05-04-2025 End: 05-04-2025 Professional / ancillary services management 05/04/2025 2:30 PM EDT Ancillary Procedure [facility] [address] [place] [id number] [facility] Start: 04-21-2025 Patient discharge [facility] Start: 04-20-2025 [facility] Start: 04-20-2025 Following clinical pathway protocol [facility] Start: 04-19-2025 Plain X-ray abdomen Abdomen Single View [facility] Start: 04-19-2025 Radiologic exam chest 2 views Chest PA and Lateral [facility] Start: 04-13-2025 End: 04-13-2025 [facility] Start: 04-13-2025 [facility] Start: 04-13-2025 Plain X-ray of shoulder Shoulder min 2 Views [facility] Start: 04-13-2025 CT cervical spine without contrast Spine Cervical without Contras [facility] Start: 04-13-2025 CT of face Sinus/Facial Bone [facility] Start: 04-13-2025 CT of head without contrast Brain/Head without Contrast [facility] Start: 04-13-2025 End: 04-13-2025 Emergency department patient visit Departed Emergency -Emergency Department Work Phone: Start: 04-12-2025 Patient encounter procedure Registered Clinical -Cardiovascular Services Work Phone: Start: 04-12-2025 Application of elastic bandage [facility] Start: 04-11-2025 Application of intermittent pneumatic compression device [facility] Start: 04-11-2025 Verification routine [facility] Start: 04-10-2025 Wound care [facility] Start: 04-08-2025 Development of care plan [facility] Start: 04-08-2025 Developing a treatment plan [facility] Start: 04-07-2025 Following clinical pathway protocol [facility] Start: 04-07-2025 Admission procedure [facility] Start: 04-07-2025 Introduction of urinary catheter [facility] Start: 04-07-2025 Measuring intake and output [facility] Start: 04-07-2025 Patient referral to dietitian [facility] Start: 04-07-2025 Referral for physical therapy [facility] Start: 04-07-2025 Referral to occupational therapist [facility] Start: 04-07-2025 Vital signs measurements [facility] Start: 04-07-2025 [facility] Start: 04-07-2025 Patient discharge [facility] Start: 04-07-2025 Application of elastic bandage [facility] Start: 04-06-2025 Application of intermittent pneumatic compression device [facility] Start: 04-05-2025 Referral to occupational therapist [facility] Start: 04-05-2025 Referral to composite assembler [facility] Start: 04-05-2025 Following clinical pathway protocol [facility] Start: 04-05-2025 Assessment of risk of venous thromboembolism [facility] Start: 04-05-2025 Insertion of catheter into peripheral vein [facility] Start: 04-05-2025 Measuring intake and output [facility] Start: 04-05-2025 Providing care according to standard [facility] Start: 04-05-2025 Provision of activity privileges [facility] Start: 04-05-2025 Referral for physical therapy [facility] Start: 04-05-2025 Referral to service [facility] Start: 04-05-2025 [facility] Start: 04-05-2025 Verification routine [facility] Start: 04-05-2025 Admission procedure [facility] Start: 04-05-2025 Hospital admission, emergency, from emergency room, medical nature [facility] Start: 04-01-2025 [facility] Start: 04-01-2025 Simple repair f/e/e/n/l/m 2.5cm/< RPR F/E/E/N/L/M 2.5 CM/< [facility] Start: 03-21-2025 COVID-19 Vaccine ( season) COVID-19 Vaccine () [facility] Start: 03-21-[address] [facility] Start: 03-10-2025 End: 03-03-2026 CBC panel - Blood by Automated count CBC Lab Routine Non-ischemic cardiomyopathy (CMS/HCC) (HCC) Expected: 03/10/2025 (Approximate), Expires: 03/03/[address] [facility] Comment on above: Expected: 03/10/2025 (Approximate), Expi res: 03/03/2026 Start: 03-04-2025 End: 03-04-2025 Patient encounter procedure 03/04/2025 8:00 AM EDT Office Visit [facility] [address] [place] [address] Petra Renteria, LIFE INSURANCE AGENT - MACHINE HAND [address], [address] [place] [address] [facility] Start: 03-03-2025 End: 03-03-2026 Basic metabolic 1998 panel - Serum or Plasma Basic metabolic panel Lab Routine Non-ischemic cardiomyopathy (CMS/HCC) (HCC) Expected: 03/03/2025 (Approximate), Expires: 03/03/[address] [facility] Work Phone: Comment on above: Expected: 03/03/2025 (Approximate), Expi res: 03/03/2026 Start: 02-17-2025 End: 02-17-2025 Patient encounter procedure 02/17/2025 9:00 AM EDT Office Visit [facility] [address] [place] [address] Petra Renteria LIFE INSURANCE AGENT - MACHINE HAND [address], [address] [place] [address] [facility] Start: 02-15-2025 End: 02-15-2025 Patient encounter procedure 02/15/2025 2:30 PM EDT Office Visit [facility] [address] [place] [address] Petra Renteria, LIFE INSURANCE AGENT - MACHINE HAND [address], [address] [place] [address] [facility] Start: 01-26-2025 End: 01-26-2026 CBC panel - Blood by Automated count CBC Lab Routine Primary hypertension Acute systolic heart failure (HCC) Expected: 01/26/2025 (Approximate), Expires: 01/26/[address] [facility] Comment on above: Expected: 01/26/2025 (Approximate), Expi res: 01/26/2026 Start: 01-26-2025 End: 01-26-2026 Comprehensive metabolic 1998 panel - Serum or Plasma Comprehensive metabolic panel Lab Routine Primary hypertension Acute systolic heart failure (HCC) Expected: 01/26/2025 (Approximate), Expires: 01/26/[address] [facility] Work Phone: Comment on above: Expected: 01/26/2025 (Approximate), Expi res: 01/26/2026 Start: 01-12-2025 End: 01-12-2025 Professional / ancillary services management 01/12/2025 3:00 PM EDT Ancillary Procedure [facility] [address] [id number] [facility] Start: 01-08-2025 Creatinine measurement Creatinine Level [facility] Start: 01-08-2025 Diabetes: Estimated Glomerular Filtration Rate for Kidney Health Diabetes: Estimated Glomerular Filtration Rate for Kidney Health [facility] Start: 01-08-2025 Potassium measurement Potassium Level [facility] Start: 12-12-2024 [facility] Start: 12-12-2024 [facility] Start: 10-06-2024 End: 10-06-2024 Professional / ancillary services management 10/06/2024 7:30 AM EDT Ancillary Procedure [facility] [address] [address] [facility] Start: 09-22-2024 End: 09-22-2024 Patient encounter procedure 09/22/2024 3:00 PM EST Office Visit [facility] [address] [place] [phone] Ralph Roth MD [address] [place] [address] [facility] Start: 09-22-2024 End: 09-22-2024 Professional / ancillary services management 09/22/2024 2:30 PM EST Ancillary Procedure [facility] [address] [place] [address] [facility] Start: 07-28-2024 End: 07-28-2024 Patient encounter procedure [facility] Start: 07-28-2024 End: 07-28-2024 Professional / ancillary services management [facility] Start: 07-21-2024 Medicare [facility] Annual Wellness Visit Medicare [employer]vantage Annual Wellness Visit [facility] Start: 05-26-2024 End: 05-26-2024 Professional / ancillary services management [facility] Start: 03-21-2024 COVID-19 Vaccine ( season) COVID-19 Vaccine ( season) [facility] Start: 03-21-2024 COVID-19 Vaccine ( season) COVID-19 Vaccine ( season) [facility] Start: 03-21-[address] [facility] Start: 02-11-2024 End: 02-11-2024 Professional / ancillary services management [facility] Start: 01-09-2024 End: 01-08-2025 Basic metabolic 1998 panel - Serum or Plasma Basic metabolic panel Lab Routine Non-ischemic cardiomyopathy (CMS/HCC) (HCC) Primary hypertension Expected: 01/09/2024 (Approximate), Expires: 01/08/2025 [facility] Work Phone: Comment on above: Expected: 01/09/2024 (Approximate), Expi res: 01/08/2025 Start: 01-09-2024 End: 01-08-2025 CBC panel - Blood by Automated count CBC Lab Routine Non-ischemic cardiomyopathy (CMS/HCC) (HCC) Primary hypertension Expected: 01/09/2024 (Approximate), Expires: 01/08/[address] [facility] Comment on above: Expected: 01/09/2024 (Approximate), Expi res: 01/08/2025 Start: 01-09-2024 End: 01-09-2024 Patient encounter procedure 01/09/2024 10:30 AM EDT Office Visit [facility] [address] [place] [phone] Petra Renteria, LIFE INSURANCE AGENT - MACHINE HAND [address], [address] [place] [address] [facility] Start: 11-27-2023 Bacteria identified in Blood by Culture Blood Culture [facility] Start: 11-27-2023 Hospital admission, emergency, from emergency room, medical nature [facility] Start: 11-27-2023 Admission procedure [facility] Start: 11-27-2023 US scan of gallbladder Gallbladder [facility] Start: 11-27-2023 End: 11-27-2023 Blood culture [facility] Start: 09-10-2023 Creatinine measurement Creatinine Level [facility] Start: 09-10-2023 Potassium measurement Potassium Level [facility] Start: 06-25-2023 End: 06-25-2023 Professional / ancillary services management 06/25/2023 7:00 AM EST Ancillary Procedure [facility] [address] [place] [phone] [facility] Start: 06-05-2023 Creatinine measurement Creatinine Level [facility] Start: 06-05-2023 Potassium measurement Potassium Level [facility] Start: 03-21-2023 COVID-19 Vaccine ( season) COVID-19 Vaccine ( season) [facility] Start: 03-21-[address] [facility] Start: 03-12-2023 End: 03-12-2023 Patient encounter procedure [facility] Start: 03-12-2023 End: 03-12-2023 Professional / ancillary services management 03/12/2023 8:30 AM EDT Ancillary Procedure [facility] [address] [place] [phone] [facility] Start: 11-20-2022 End: 11-20-2022 Professional / ancillary services management 11/20/2022 Ancillary Procedure Cardiology [facility] Start: 09-10-2022 End: 09-10-2023 Basic metabolic 1998 panel - Serum or Plasma Basic metabolic panel Lab Routine Acute HFrEF (heart failure with reduced ejection fraction) (CMS/HCC) (HCC) Expected: 09/10/2022 (Approximate), Expires: 09/10/2023 [facility] [employer] [facility] Work Phone: Comment on above: Expected: 09/10/2022 (Approximate), Expi res: 09/10/2023 Start: 09-10-2022 End: 09-10-2023 CBC panel - Blood by Automated count CBC Lab Routine Acute HFrEF (heart failure with reduced ejection fraction) (CMS/HCC) (HCC) Expected: 09/10/2022 (Approximate), Expires: 09/10/[address] [facility] Comment on above: Expected: 09/10/2022 (Approximate), Expi res: 09/10/2023 Start: 09-10-2022 End: 09-10-2022 Patient encounter procedure 09/10/2022 Office Visit Cardiology Petra Renteria, LIFE INSURANCE AGENT - MACHINE HAND [address], [address] [place] [address] [facility] Start: 07-21-2022 ADVANCE DIRECTIVE DISCUSSION ADVANCE DIRECTIVE DISCUSSION [facility] Start: 07-21-2022 DEPRESSION ASSESSMENT DEPRESSION ASSESSMENT [facility] Start: 05-14-2022 Lipid panel [facility] Start: 05-08-2022 End: 05-08-2022 Nursing evaluation of patient and report 05/08/2022 Nurse Only Cardiology Leslie Gloria, JAIMIE [facility] Start: 03-21-2022 Influenza vaccination Flu vaccine (#1) [facility] Start: 09-26-2021 Creatinine measurement Creatinine monitoring [facility] Work Phone: Start: 09-26-2021 Potassium monitoring Potassium monitoring [facility] Work Phone: Start: 09-21-2021 Creatinine measurement Creatinine monitoring [facility] Work Phone: Start: 09-21-2021 Potassium monitoring Potassium monitoring [facility] Work Phone: Start: 09-15-2021 Creatinine measurement Creatinine monitoring [facility] Work Phone: Start: 09-15-2021 Potassium monitoring Potassium monitoring [facility] Work Phone: Start: 09-05-2021 Creatinine measurement Creatinine monitoring [facility] Work Phone: Start: 09-05-2021 Potassium monitoring Potassium monitoring [facility] Work Phone: Start: 08-01-2021 Creatinine measurement Creatinine monitoring [facility] [place] Start: 08-01-2021 Potassium monitoring Potassium monitoring [email or web address] [place] [place] Start: 05-01-2021 Creatinine measurement Creatinine monitoring [email or web address] [place] Start: 05-01-2021 Potassium monitoring Potassium monitoring [email or web address] [place] [place] Start: 04-21-2021 Medicare Annual Wellness (AWV) Medicare Annual Wellness (AWV) [employer] Start: 12-21-2020 End: 12-21-2020 Office Visit 12/21/2020 Office Visit Cardiology Ruddy Gates MD [address] [facility] [address] [place] [address] [phone] [facility] Start: 10-24-2020 End: 10-24-2020 Office Visit 10/24/2020 Office Visit Cardiology Ralph Roth MD [address] [facility] [address] [place] [address] [phone] [facility] Start: 10-05-2020 End: 10-05-2020 Office Visit 10/05/2020 Office Visit Cardiology Petra Renteria, LIFE INSURANCE AGENT - MACHINE HAND [address], [address] [place] [address] [phone] [facility] Start: 10-02-2020 End: 10-02-2020 Nurse Only 10/02/2020 Nurse Only Cardiology Leslie Gloria RN [facility] Start: 09-21-2020 End: 09-21-2020 Office Visit 09/21/2020 Office Visit Cardiology Shawna Sethi APRN - [employer] DEVELOPER [address] [place] [address] [phone] [facility] Start: 09-21-2020 End: 09-15-2021 Basic metabolic 2000 panel Basic Metabolic Panel Lab Routine Acute on chronic HFrEF (heart failure with reduced ejection fraction) ([facility]) Expected: 09/21/2020, Expires: 09/15/2021 [facility] Work Phone: Comment on above: Expected: 09/21/2020, Expires: Start: 09-18-2020 End: 09-18-2020 Virtual Visit 09/18/2020 Virtual Visit Gastroenterology Sia Daniels APRN - MACHINE HAND [address] [place] [address] [phone] [facility] Start: 09-11-2020 End: 09-11-2020 Appointment 09/11/2020 Appointment Stress Lab Ruddy Gates MD [address] [place] [address] [phone] [facility] Start: 08-29-2020 End: 08-29-2020 Appointment 08/29/2020 Appointment Infusion Therapy [facility] Start: 08-24-2020 End: 08-24-2020 Office Visit 08/24/2020 Office Visit Cardiology Ruddy Gates MD [address] [place] [address] [phone] [facility] Start: 08-23-2020 End: 08-23-2020 Appointment 08/23/2020 Appointment Echocardiography Ralph Roth MD [address] [place] [address] [phone] [facility] Start: 08-01-2020 End: 08-01-2020 Office Visit 08/01/2020 Office Visit Cardiology Ralph Roth MD [address] [place] [address] [phone] [facility] Start: 03-21-2020 Influenza vaccination Flu vaccine (#1) [place] Start: 01-10-2019 Annual Wellness Visit (AWV) Annual Wellness Visit (AWV) [place] Start: 2014 RSV Immunization for Adults (1 - 1-dose 75+ series) RSV Immunization for Adults (1 - 1-dose 75+ series) [facility] Start: 03-16-2014 Colonoscopy COLONOSCOPY [facility] Start: 06-08-2013 Pneumococcal Vaccine: 65+ Years (2 - PCV) Pneumococcal Vaccine: 65+ Years (2 - PCV) [facility] Start: 2004 Pneumococcal Vaccine: 65+ (1 - PCV) Pneumococcal Vaccine: 65+ (1 - PCV) [facility] Start: 2004 PNEUMOCOCCAL: 65+ (1 - PCV) PNEUMOCOCCAL: 65+ (1 - PCV) [facility] Start: 1999 RSV Immunization aged 60 or older (1 - 1-dose 60+ series) RSV Immunization aged 60 or older (1 - 1-dose 60+ series) [facility] Start: 1999 RSV Vaccine (1 - 1-dose 60+ series) RSV Vaccine (1 - 1-dose 60+ series) [facility] Start: 1989 Shingles Vaccine (1 of 2) Shingles Vaccine (1 of 2) [place] Start: 1989 SHINGRIX VACCINE (1 of 2) SHINGRIX VACCINE (1 of 2) [facility] Start: 1984 DIABETES SCREEN DIABETES SCREEN [facility] Start: 1984 Diabetes Screening Diabetes Screening [facility] Start: 1958 DTaP/Tdap/Td vaccine (1 - Tdap) DTaP/Tdap/Td vaccine (1 - Tdap) [place] Start: 1958 Shingles vaccine (1 of 2) Shingles vaccine (1 of 2) [facility] Start: 1958 Urine microalbumin profile [facility] Start: 1958 Urine screening for protein Diabetes: Urine Protein Screening [facility] Start: 1958 Zoster Vaccines (1 of 2) Zoster Vaccines (1 of 2) [facility] Start: 1957 Diabetes: Urine Albumin-Creatinine Ratio for Kidney Health Diabetes: Urine Albumin-Creatinine Ratio for [facility] Start: 1955 COVID-19 Vaccine (1 of 2) COVID-19 Vaccine (1 of 2) [place] Start: 1951 Depression Screen Depression Screen [facility] Start: 1951 Depression Screening Depression Screening [facility] Start: 1949 Diabetic foot examination Diabetes: Foot Exam [facility] Start: 1949 Glaucoma screening Diabetes: Retinopathy Screening [facility] Start: 1949 Preventive dental service Diabetes: Dental Exam [facility] Start: 1939 COVID-19 VACCINE (#1) COVID-19 VACCINE (#1) [facility] Start: 1939 Annual Wellness Visit (AWV) Annual Wellness Visit (AWV) [facility] Start: 1939 Echocardiography [address] [facility] Start: 1939 Hemoglobin A1c measurement Diabetes: Hemoglobin A1C [facility] Start: 1939 Hepatitis B Vaccines (1 of 3 - 3-dose series) Hepatitis B Vaccines (1 of 3 - 3-dose series) [facility] Start: 1939 Medicare Annual Wellness (AWV) Medicare Annual Wellness (AWV) [facility] Start: 1939 Thyroid stimulating hormone measurement TSH Level [facility] Anion gap in Serum o r Plasma [facility] Anion gap in Serum o r Plasma [facility] Anion gap in Serum o r Plasma [facility] Anion gap in Serum o r Plasma [facility] Basic Metabolic Pane l w/ Reflex to MG [facility] Work Phone: Comment on above: Daily until discontinued starting 2020, 2 completed Bilirubin measuremen t, urine [facility] End: 09-30-2020 Brain Natriuretic Peptide Brain Natriuretic Peptide Lab Routine Every Third Day for 3 Occurrences starting 09/24/2020 until 09/30/2020, 1 completed [facility] Work Phone: Comment on above: Every Third Day for 3 Occurrences starti ng 09/24/2020 until 09/30/2020, 1 completed BUN/Creatinine ratio [facility] BUN/Creatinine ratio [facility] BUN/Creatinine ratio [facility] BUN/Creatinine ratio [facility] Calcium [Mass/volume ] in Serum or Plasma [facility] Calcium [Mass/volume ] in Serum or Plasma [facility] Calcium [Mass/volume ] in Serum or Plasma [facility] Calcium [Mass/volume ] in Serum or Plasma [facility] Carbon dioxide, tota l [Moles/volume] in Central venous blood [facility] Carbon dioxide, tota l [Moles/volume] in Central venous blood [facility] Carbon dioxide, tota l [Moles/volume] in Central venous blood [facility] Carbon dioxide, tota l [Moles/volume] in Central venous blood [facility] End: 09-11-2020 Catheterization and angiography procedure details panel Diagnostic Cardiac Investor Relations Coordinator Procedure Cardiac Cath Routine One Time for 1 Occurrences starting 09/11/2020 until 09/11/2020 [employer] Work Phone: Comment on above: One Time for 1 Occurrences starting 08/22 until 09/11/2020 CBC Auto Differential CBC Auto D ifferential Lab Routine Daily until discontinued starting 09/23/2020, 4 completed [employer] Work Phone: Comment on above: Daily until discontinued starting 2020, 4 completed Creatine kinase [Enzymatic activity/volume] in Serum or Plasma [facility] Creatinine [Mass/vol ume] in Serum or Plasma [facility] Creatinine [Mass/vol ume] in Serum or Plasma [facility] Creatinine [Mass/vol ume] in Serum or Plasma [facility] Creatinine [Mass/vol ume] in Serum or Plasma [facility] EKG 12 Lead EKG 12 Lead ECG Routine 09/05/2020 7:19 PM EST [facility] Work Phone: Erythrocyte mean corpuscular volume determination [facility] Erythrocyte mean corpuscular volume determination [facility] Erythrocyte mean corpuscular volume determination [facility] Erythrocyte mean corpuscular volume determination [facility] Glucose [Mass/volume ] in Serum or Plasma [facility] Glucose [Mass/volume ] in Serum or Plasma [facility] Glucose [Mass/volume ] in Serum or Plasma [facility] Glucose [Mass/volume ] in Serum or Plasma [facility] Hematocrit [Volume Fraction] of Blood [facility] Hematocrit [Volume Fraction] of Blood [facility] Hematocrit [Volume Fraction] of Blood [facility] Hematocrit [Volume Fraction] of Blood [facility] Hemoglobin [Mass/vol ume] in Blood [facility] Hemoglobin [Mass/vol ume] in Blood [facility] Hemoglobin [Mass/vol ume] in Blood [facility] Hemoglobin [Mass/vol ume] in Blood [facility] Hemoglobin [Presence ] in Urine [facility] End: 09-26-2020 Home O2 eval (desaturation screen) Home O2 eval (desaturation screen) Respiratory Care Routine One Time for 1 Occurrences starting 09/26/2020 until 09/26/2020 [facility] Work Phone: Comment on above: One Time for 1 Occurrences starting 03/2021 until 09/26/2020 Leukocytes [#/volume ] in Blood [facility] Leukocytes [#/volume ] in Blood [facility] Leukocytes [#/volume ] in Blood [facility] Leukocytes [#/volume ] in Blood [facility] End: 09-14-2020 Magnesium [Mass/Vol] Magnesium Lab Add-On One Time for 1 Occurrences starting 09/14/2020 until 09/14/2020 [facility] Work Phone: Comment on above: One Time for 1 Occurrences starting 08/22 until 09/14/2020 Mean corpuscular hemoglobin concentration determination [facility] Mean corpuscular hemoglobin concentration determination [facility] Mean corpuscular hemoglobin concentration determination [facility] Mean corpuscular hemoglobin concentration determination [facility] Mean corpuscular hemoglobin determination [facility] Mean corpuscular hemoglobin determination [facility] Mean corpuscular hemoglobin determination [facility] Mean corpuscular hemoglobin determination [facility] Measurement of keton es in urine using dipstick [facility] Measurement of renal function [facility] Measurement of renal function [facility] Measurement of renal function [facility] Measurement of renal function [facility] Microscopic urinalysis [facility] Neutrophil count [facility] Neutrophil count [facility] Neutrophil count [facility] Neutrophil count [facility] Neutrophil percent differential count [facility] Neutrophil percent differential count [facility] Neutrophil percent differential count [facility] Neutrophil percent differential count [facility] Oxygen therapy [[facility] Data Set] Initiate Oxygen Therapy Protocol Respiratory Care Routine Daily until discontinued starting 09/11/2020 [facility] Work Phone: Comment on above: Daily until discontinued starting 2020 Patient Education [facility] Work Phone: Patient referral [facility] Work Phone: pH of Urine [facility] Platelets [#/volume] in Blood [facility] Platelets [#/volume] in Blood [facility] Platelets [#/volume] in Blood [facility] Platelets [#/volume] in Blood [facility] Potassium measurement [facility] Potassium measurement [facility] Potassium measurement [facility] Potassium measurement [facility] Procalcitonin [Mass/volume] in Serum or Plasma [facility] Red blood cell count [facility] Red blood cell count [facility] Red blood cell count [facility] Red blood cell count [facility] Red cell distributio n width determination [facility] Red cell distributio n width determination [facility] Red cell distributio n width determination [facility] Red cell distributio n width determination [facility] Serum chloride measurement [facility] Serum chloride measurement [facility] Serum chloride measurement [facility] Serum chloride measurement [facility] Sodium measurement [facility] Sodium measurement [facility] Sodium measurement [facility] Sodium measurement [facility] Specific gravity of Urine [facility] Urea nitrogen [Mass/volume] in Serum or Plasma [facility] Urea nitrogen [Mass/volume] in Serum or Plasma [facility] Urea nitrogen [Mass/volume] in Serum or Plasma [facility] Urea nitrogen [Mass/volume] in Serum or Plasma [facility] Urine blood test [facility] Urine dipstick for glucose [facility] Urine dipstick for leukocyte esterase [facility] Urine dipstick for nitrite [facility] Urine dipstick for protein [facility] Urine examination [facility] Urine microscopy: epithelial cells [facility] Urine Microscopy: wh ite cells [facility] Urobilinogen [Presen ce] in Urine [facility] Immunizations Immunization Date Immunization Notes Care Provider Fa amyty 05-16-2022 influenza virus vacc ine, unspecified formulation Ralph Roth MD Work Phone: [facility] 06-22-[address] Rigoberto Durand Work Phone: [facility] 11-10-2020 Covid (Moderna) Dr. Rigoberto shaver Work Phone: [facility] 10-13-2020 Covid (Moderna) Dr. Rigoberto shaver Work Phone: [facility] 08-24-2020 tetanus toxoid, redu fernando diphtheria toxoid, and acellular pertussis vaccine, adsorbed Ralph Roth [facility] Work Phone: 05-29-2017 pneumococcal conjuga te vaccine, [address] Rigoberto Durand MD Work Phone: [facility] 06-08-2012 pneumococcal polysaccharide vaccine, [address] Rigoberto Durand MD Work Phone: [facility] Payers Date Payer Category Payer Self-pay [id number] 2024 Unknown [id number] 2024 Self-pay [id number] 2024 Medicare HMO [employer] MEDICARE [id number] 2024 Private Health Insurance [id number] 2021 Medicare supplementa l policy (as second payer) AARP [id number] 2021 Unknown AARP AARP [id number] 2021-Present [address] [place] [address] Supplement [id number] 2015 Private Health Insurance [id number] 2004 Medicare [id number] 2004 Medicare [id number] Unknown [id number]. 2.462 Unknown [id number]. 2.462 Unknown [id number]. 2.462 Unknown [id number]. 2.462 Unknown [id number] 2.462 Unknown [id number]. 2.462 Unknown [id number]. 2.462 Unknown [id number]. 2.462 Unknown [id number] [id number]. 2.462 Unknown [id number]. 2.462 Unknown [id number] 2.462 Social History Date Type Detail Facility Start: 08-01-2020 End: 02-11-2025 Tobacco smoking status NHIS Former smoker [place] End: 11-08-1999 History of tobacco use Current smoker [place] Start: 08-01-2020 End: 03-09-2025 Cigarettes smoked current (pack per day) - Reported [facility] Start: 08-01-2020 End: 02-11-2025 Tobacco use and exposure Never used [place] Start: 08-01-2020 End: 02-11-2025 Alcohol intake Current drinker of alcohol (finding) [place] Start: 1940 Sex Assigned At Not on file M [place], [place] Start: 08-31-2022 End: 03-12-2023 Exposure to SARS-CoV-2 (event) Not sure [place] Start: 09-05-2020 Alcohol Comment occationally [facility] Work Phone: Start: 09-21-2020 Alcohol Comment occasional [facility] Work Phone: Start: 09-21-2021 End: 11-27-2023 Tobacco smoking status WVIS Unknown if ever smoked [facility] Start: 1940 Sex Assigned At Male [facility] End: 11-08-1999 History of tobacco use Cigarette Smoker [facility] Work Phone: Start: 12-19-2021 History SDOH Alcohol Comment occasional wine [facility] Work Phone: Start: 09-10-2022 End: 03-09-20[address] use [address] [facility] Start: 06-08-2011 End: 04-13-2025 Tobacco smoking status NHIS Never smoked tobacco [facility] Work Phone: Start: 03-16-2013 Alcohol intake Current non-dr linker up of alcohol (finding) [facility] Start: 09-10-2022 Alcohol Comment soc [facility] Start: 01-09-2024 Alcohol Comment occasionally [facility] Start: 02-18-2022 End: 10-07-2024 Sex Male (finding) [facility] Within the last year , have you been afraid of your partner or ex-partner? No [facility] How often to you hav e a drink containing alcohol? Monthly or less [facility] How many standard drinks containing alcohol do you have on a typical day? 1 or 2 [facility] How often do you hav e 6 or more drinks on 1 occasion? Never [facility] History of tobacco use Passive smoker [facility] How many standard drinks containing alcohol do you have on a typical day? Patient does not drink [facility] The food that (I/we) bought just didn't last, and (I/we) didn't have money to get more. Never true [facility] Start: 02-11-2025 Tobacco Comment Patient states he quit smoking in 1999, no history of vaping or smokeless tobacco. Smoking cessation counseling no indicated. [facility] Are you now , , , , never or living with a partner? [facility] Do you feel stress - tense, restless, nervous, or anxious, or unable to sleep at night because your mind is troubled all the time - these days [OSQ] Not at all [facility] Medical Equipment Procedure Code Equipment Code Equipment [...] ST MATT/NGUYEN Q UADRA ASSURA MP DEFIBRILLATOR (ORDER TRACER-D) FDA Start: 09-11-2020 ST MATT/NGUYEN Q UADRA ASSURA MP DEFIBRILLATOR (ORDER TRACER-D) FDA Start: 09-11-2020 ST MATT/NGUYEN Q UADRA ASSURA MP DEFIBRILLATOR (ORDER TRACER-D) FDA Start: 09-11-2020 ST MATT/NGUYEN Q UADRA ASSURA MP DEFIBRILLATOR (ORDER TRACER-D) FDA Start: 09-11-2020 ST MATT/NGUYEN Q UADRA ASSURA MP DEFIBRILLATOR (ORDER TRACER-D) FDA Start: 09-11-2020 ST MATT/NGUYEN Q UADRA ASSURA MP DEFIBRILLATOR (ORDER TRACER-D) FDA Start: 09-11-2020 ST MATT/NGUYEN Q UADRA ASSURA MP DEFIBRILLATOR (ORDER TRACER-D) FDA Start: 09-11-2020 ST MATT/NGUYEN Q UADRA ASSURA MP DEFIBRILLATOR (ORDER TRACER-D) FDA Start: 09-11-2020 ST MATT/NGUYEN Q UADRA ASSURA MP DEFIBRILLATOR (ORDER TRACER-D) FDA Start: 09-11-2020 ST MATT/NGUYEN Q UADRA ASSURA MP DEFIBRILLATOR (ORDER TRACER-D) FDA Start: 09-11-2020 ST MATT/NGUYEN Q UADRA ASSURA MP DEFIBRILLATOR (ORDER TRACER-D) FDA Start: 09-11-2020 ST MATT/NGUYEN Q UADRA ASSURA MP DEFIBRILLATOR (ORDER TRACER-D) FDA Start: 09-11-2020 Usentric 3369-4 0q Quadra Assura Mp [id number] Start: 09-10-2020 Usentric 7122 D urata [id number] Start: 09-10-2020 ST MATT/NGUYEN Q UADRA ASSURA MP DEFIBRILLATOR (ORDER TRACER-D) FDA Start: 09-11-2020 ST MATT/NGUYEN Q UADRA ASSURA MP DEFIBRILLATOR (ORDER TRACER-D) FDA Start: 09-11-2020 ST MATT/NGUYEN Q UADRA ASSURA MP DEFIBRILLATOR (ORDER TRACER-D) FDA Start: 09-11-2020 ST MATT/NGUYEN Q UADRA ASSURA MP DEFIBRILLATOR (ORDER TRACER-D) FDA Start: 09-11-2020 ST MATT/NGUYEN Q UADRA ASSURA MP DEFIBRILLATOR (ORDER TRACER-D) FDA Start: 09-11-2020 ST MATT/NGUYEN Q UADRA ASSURA MP DEFIBRILLATOR (ORDER TRACER-D) FDA Start: 09-11-2020 ST MATT/NGUYEN Q UADRA ASSURA MP DEFIBRILLATOR (ORDER TRACER-D) FDA Start: 09-11-2020 ST MATT/NGUYEN Q UADRA ASSURA MP DEFIBRILLATOR (ORDER TRACER-D) FDA Start: 09-11-2020 ST MATT/NGUYEN Q UADRA ASSURA MP DEFIBRILLATOR (ORDER TRACER-D) FDA Start: 09-11-2020 ST MATT/NGUYEN Q UADRA ASSURA MP DEFIBRILLATOR (ORDER TRACER-D) FDA Start: 09-11-2020 ST MATT/NGUYEN Q UADRA ASSURA MP DEFIBRILLATOR (ORDER TRACER-D) FDA Start: 09-11-2020 ST MATT/NGUYEN Q UADRA ASSURA MP DEFIBRILLATOR (ORDER TRACER-D) FDA Start: 09-11-2020 ST MATT/NGUYEN Q UADRA ASSURA MP DEFIBRILLATOR (ORDER TRACER-D) FDA Start: 09-11-2020 ST MATT/NGUYEN Q UADRA ASSURA MP DEFIBRILLATOR (ORDER TRACER-D) FDA Start: 09-11-2020 ST MATT/NGUYEN Q UADRA ASSURA MP DEFIBRILLATOR (ORDER TRACER-D) FDA Start: 09-11-2020 ST MATT/NGUYEN Q UADRA ASSURA MP DEFIBRILLATOR (ORDER TRACER-D) FDA Start: 09-11-2020 Abbo-Card [id number] Quartet [id number] Start: 09-10-2020 Abbo-Card [id number] Tendril Sts [id number] Start: 09-10-2020 ST MATT/NGUYEN Q UADRA ASSURA MP DEFIBRILLATOR (ORDER TRACER-D) FDA Start: 09-11-2020 ST MATT/NGUYEN Q UADRA ASSURA MP DEFIBRILLATOR (ORDER TRACER-D) FDA Start: 09-11-2020 ST MATT/NGUYEN Q UADRA ASSURA MP DEFIBRILLATOR (ORDER TRACER-D) FDA Start: 09-11-2020 ST MATT/NGUYEN Q UADRA ASSURA MP DEFIBRILLATOR (ORDER TRACER-D) FDA Start: 09-11-2020 ST MATT/NGUYEN Q UADRA ASSURA MP DEFIBRILLATOR (ORDER TRACER-D) FDA Start: 09-11-2020 ST MATT/NGUYEN Q UADRA ASSURA MP DEFIBRILLATOR (ORDER TRACER-D) FDA Start: 09-11-2020 ST MATT/NGUYEN Q UADRA ASSURA MP DEFIBRILLATOR (ORDER TRACER-D) FDA Start: 09-11-2020 ST MATT/NGUYEN Q UADRA ASSURA MP DEFIBRILLATOR (ORDER TRACER-D) FDA Start: 09-11-2020 ST MATT/NGUYEN Q UADRA ASSURA MP DEFIBRILLATOR (ORDER TRACER-D) FDA Start: 09-11-2020 ST MATT/NGUYEN Q UADRA ASSURA MP DEFIBRILLATOR (ORDER TRACER-D) FDA Start: 09-11-2020 ST MATT/NGUYEN Q UADRA ASSURA MP DEFIBRILLATOR (ORDER TRACER-D) FDA Start: 09-11-2020 ST MATT/NGUYEN Q UADRA ASSURA MP DEFIBRILLATOR (ORDER TRACER-D) FDA Start: 09-11-2020 ST MATT/NGUYEN Q UADRA ASSURA MP DEFIBRILLATOR (ORDER TRACER-D) FDA Start: 09-11-2020 ST MATT/NGUYEN Q UADRA ASSURA MP DEFIBRILLATOR (ORDER TRACER-D) FDA Start: 09-11-2020 ST MATT/NGUYEN Q UADRA ASSURA MP DEFIBRILLATOR (ORDER TRACER-D) FDA Start: 09-11-2020 ST MATT/NGUYEN Q UADRA ASSURA MP DEFIBRILLATOR (ORDER TRACER-D) FDA Start: 09-11-2020 ST MATT/NGUYEN Q UADRA ASSURA MP DEFIBRILLATOR (ORDER TRACER-D) FDA Start: 09-11-2020 ST MATT/NGUYEN Q UADRA ASSURA MP DEFIBRILLATOR (ORDER TRACER-D) FDA Start: 09-11-2020 ST MATT/NGUYEN Q UADRA ASSURA MP DEFIBRILLATOR (ORDER TRACER-D) FDA Start: 09-11-2020 ST MATT/NGUYEN Q UADRA ASSURA MP DEFIBRILLATOR (ORDER TRACER-D) FDA Start: 09-11-2020 ST MATT/NGUYEN Q UADRA ASSURA MP DEFIBRILLATOR (ORDER TRACER-D) FDA Start: 09-11-2020 ST MATT/NGUYEN Q UADRA ASSURA MP DEFIBRILLATOR (ORDER TRACER-D) FDA Start: 09-11-2020 ST MATT/NGUYEN Q UADRA ASSURA MP DEFIBRILLATOR (ORDER TRACER-D) FDA Start: 09-11-2020 ST MATT/NGUYEN Q UADRA ASSURA MP DEFIBRILLATOR (ORDER TRACER-D) FDA Start: 09-11-2020 ST MATT/NGUYEN Q UADRA ASSURA MP DEFIBRILLATOR (ORDER TRACER-D) FDA Start: 09-11-2020 ST MATT/NGUYEN Q UADRA ASSURA MP DEFIBRILLATOR (ORDER TRACER-D) FDA Start: 09-11-2020 ST MATT/NGUYEN Q UADRA ASSURA MP DEFIBRILLATOR (ORDER TRACER-D) FDA Start: 09-11-2020 ST MATT/NGUYEN Q UADRA ASSURA MP DEFIBRILLATOR (ORDER TRACER-D) FDA Start: 09-11-2020 Goals Date Patient Goal Desired Activity /State Functional Status Date Assessment Result Facility 04-22-2025 Functional status Bedrest [facility] Work Phone: 04-21-2025 Functional status Tolerates Activity Fair [facility] Work Phone: 04-19-2025 Functional status Chair [facility] Work Phone: 04-18-2025 Functional status Chair [facility] Work Phone: 04-14-2025 Functional status Tolerates Activity Fair [facility] Work Phone: 04-07-2025 Functional status Ambulates [facility] Work Phone: 02-15-2025 Are you deaf, or do you have serious difficulty hearing Yes 02/15/2025 3:03 PM EDT Micah Devries, JAIMIE Yes [facility] 02-15-2025 Are you blind, or do you have serious difficulty seeing, even when wearing glasses No 02/15/2025 3:03 PM EDT Micah Devries, JAIMIE No [facility] 02-15-2025 Do you have serious difficulty walking or climbing stairs Yes 02/15/2025 3:03 PM EDT Micah Devries, JAIMIE Yes [facility] 02-15-2025 Do you have difficul ty dressing or bathing No 02/15/2025 3:03 PM EDT Micah Devries, JAIMIE No [facility] 02-15-2025 Because of a physica l, mental, or emotional condition, do you have difficulty doing errands alone such as visiting a physician's office or shopping Yes 02/15/2025 3:03 PM EDT Micah Devries, JAIMIE Yes [facility] 02-10-2025 Total score [AUDIT-C] 0 02/11/20 6:44 PM EDT Katie Hernández RN [facility] 08-22-2021 Functional status Dangle Feet;Chair [facility] Work Phone: [facility] Mental Status Date Assessment Result Facility 04-21-2025 Cognitive function Voice/Name [facility] Work Phone: 04-19-2025 Cognitive function Voice/Name [facility] Work Phone: 04-18-2025 Cognitive function Voice/Name [facility] Work Phone: 04-15-2025 Cognitive function Cooperative [facility] Work Phone: 04-07-2025 Cognitive function Voice/Name [facility] Work Phone: 02-15-2025 Because of a physica l, mental, or emotional condition, do you have serious difficulty concentrating, remembering, or making decisions No 02/15/2025 3:03 PM EDT Micah Devries RN No [facility] 11-27-2023 Cognitive function Level Of Cons ciousness Awake;Alert;Appropriate [facility] Work Phone: 08-22-2021 Cognitive function Voice/Name [facility] Work Phone: Clinical Notes 09-26-2020 to 05-02-2025 Telephone Encounter - Dania Mcknight RN - 05/02/2025 3:11 PM EDTTelephone Encounter - Dania Mcknight RN - 05/02/2025 3:11 PM EDTTelephone Encounter - Dania Mcknight RN - 05/02/2025 12:59 PM EDT Note Date & Type Note Facility 05-02-2025 Telephone encount er Note PC to patient. I spoke with him and . His feet are not blue. His feet are purple close to his toes. States worse with colder weather. His feet are cold but this is not new for him. He has normal function of his feet and toes. 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 He has been out of lasix since he got home on Friday. He has started to retain some fluid in his legs and belly. Recommend to elevate legs as much as possible, follow low sodium diet. Daughter states he is not eating much. He has not been weighing himself since he got home as it has been a lot Will talk with [facility] about him being out of diuretic. Do not want him to end up in the hospital again. They verbalized understanding. R/W RBC he would like patient to take 80 mg lasix for 3 days then go back to normal dose. PC to pts daughter. Reviewed RBC recommendations. Will f/u later this week for update. Reviewed to start weighing him daily. Will call sooner if he is not improving. She verbalized understanding. [facility] 05-02-2025 Miscellaneous Notes Formattin g of this note might be different from the original. PC to patient. I spoke with him and . His feet are not blue. His feet are purple close to his toes. States worse with colder weather. His feet are cold but this is not new for him. He has normal function of his feet and toes. 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 He has been out of lasix since he got home on Friday. He has started to retain some fluid in his legs and belly. Recommend to elevate legs as much as possible, follow low sodium diet. Daughter states he is not eating much. He has not been weighing himself since he got home as it has been a lot Will talk with [facility] about him being out of diuretic. Do not want him to end up in the hospital again. They verbalized understanding. R/W RBC he would like patient to take 80 mg lasix for 3 days then go back to normal dose. PC to pts daughter. Reviewed RBC recommendations. Will f/u later this week for update. Reviewed to start weighing him daily. Will call sooner if he is not improving. She verbalized understanding. PC to Rachel at [facility]. Patient was in the hospital 04/05 he had falen at home and was on the floor for 5 hours. When he can into the hospital he was treated for rhabdo and heart failure exacerbation. Patient was d/c on Sharon but does not have any at home. Asking if he should continue med? Family mentioned that he has been on medication in the past. I was able to review chart while she was on the phone, his sharon was stopped d/t kidney function. He was taken off torsemide and put on furosemide 40 mg daily. Metoprolol was cut down to 50 mg daily. Will request hospital records. I see CMP from earlier this month but do not know if he has had anything more recent or if he was on sharon at the time. Has appt currently scheduled with [facility] next month. Will move up appt to the next 1-2 weeks for hosp f/u. Will r/w RBC she verbalized understanding. Kandi from [facility] [phone] requesting return call regarding medications, Aldactone? Should still be taking? documented in this encounter [facility] 05-02-2025 Telephone encount er Note PC to Rachel at [facility]. Patient was in the hospital 04/05 he had falen at home and was on the floor for 5 hours. When he can into the hospital he was treated for rhabdo and heart failure exacerbation. Patient was d/c on L[place]in but does not have any at home. Asking if he should continue med? Family mentioned that he has been on medication in the past. I was able to review chart while she was on the phone, his sharon was stopped d/t kidney function. He was taken off torsemide and put on furosemide 40 mg daily. Metoprolol was cut down to 50 mg daily. Will request hospital records. I see CMP from earlier this month but do not know if he has had anything more recent or if he was on sharon at the time. Has appt currently scheduled with [facility] next month. Will move up appt to the next 1-2 weeks for hosp f/u. Will r/w RBC she verbalized understanding. [facility] 05-02-2025 Telephone encount er Note Kandi from [facility] [phone] requesting return call regarding medications, Aldactone? Should still be taking? [facility] 04-27-2025 Note [facility] 04-19-2025 Note [facility] 04-13-2025 Discharge summary [facility] 04-13-2025 Radiology Diagnostic study note [facility] [address] [place] [address] Shoulder min 2 Views MR#: [id number] Acct: [id number] Name: MEGAN NASCIMENTO Rep #: [id number] : 1940 M 84 From: Oswaldo Lu MD PCP: Dr. Rigoberto Durand MD Status: REG E R Study:Shoulder min 2 Views Date of Exam: 04/13/25 Exam# [id number] Ordering Dr: Larissa Simons DO PROCEDURE: SHOULDER MIN 2 VIEWS 04/13/2025 REASON FOR EXAM: RIGHT SHOULDER PAIN TECHNIQUE: Procedure Code: RADSH Modality: DX Procedure: SHOULDER MIN 2 VIEWS Laterality: Right COMPARISON: None. FINDINGS: Elevation of the humeral head which is probably secondary to chronic rotator cuff tendons tear/muscular atrophy. Mild osteopenia of the visualized bones. Degenerative joint disease. No fracture or dislocation is seen. No lytic or blastic bone lesion is noted. RAD/Shoulder min 2 Views IMPRESSION: No radiographic evidence for acute abnormality. Reading Location: [place] [address] CC: Dr. Rigoberto Durand MD; Dr. Kian Simons DO ~ Tobacco Grower: Signed [facility] 04-13-2025 Radiology Diagnostic study note [facility] [address], [place] [id number] Spine Cervical without Contras MR#: [id number] Acct: [id number] Name: MEGAN NASCIMENTO Rep #: [id number] : 1940 M 84 From: Oswaldo Lu MD PCP: Dr. Rigoberto Durand MD Status: REG E R Study:Spine Cervical without Contras Date of Exam: 04/13/25 Exam# [id number] Ordering Dr: Larissa Simons DO PROCEDURE: SPINE CERVICAL WITHOUT CONTRAS 04/13/2025 REASON FOR EXAM: NECK PAIN. TECHNIQUE: Procedure Code: CTSPC Modality: CT Procedure: SPINE CERVICAL WITHOUT CONTRAS Coronal and Sagittal reconstruction series were provided. One or more dose reduction techniques were used (e.g., Automated exposure control, adjustment of the mA and/or kV according to patient size, use of iterative reconstruction technique. RADIATION DOSE SUMMARY: CTDlvol: 29.38 mGy DLP: 613 mGycm COMPARISON: CT scan on 04/01/2025. FINDINGS: Moderate osteopenia. Grade 1 retrolisthesis of C3 on C4. Grade 1 anterolisthesis of C7 on T1. Moderate diffuse spondylosis. Multilevel degenerative disc disease. There are diffuse spondylotic changes. Findings are demonstrated to by diffuse disc space narrowing, osteophyte formation and degenerative endplate sclerosis. There is diffuse facet joint arthropathy with secondary bilateral neural foramina narrowing. No fracture or dislocation is seen. No aggressive lytic or blastic bony lesion is noted. Mild bilateral pleural effusions. Passive atelectatic airspace disease of the lungs. CT/Spine Cervical without Contras IMPRESSION: No CT evidence of an acute abnormality. Reading Location: [place] [address] CC: Dr. Rigoberto Durand MD; Dr. Kian Simons DO ~ Tobacco Grower: Signed [facility] 04-13-2025 Radiology Diagnostic study note [facility] [address] [place], [place] [address] Sinus/Facial Bone MR#: [id number] Acct: [id number] Name: MEGAN NASCIMENTO Rep #: [id number] : 1940 M 84 From: Oswaldo Lu MD PCP: Dr. Rigoberto Durand MD Status: REG E R Study:Sinus/Facial Bone Date of Exam: Exam# [id number] Ordering Dr: Larissa Simons DO PROCEDURE: SINUS/FACIAL BONE 04/13/2025 REASON FOR EXAM: FALL, FACIAL TRAUMA RIGHT MAXILLARY TTP TECHNIQUE: Procedure Code: CTSI Modality: CT Procedure: SINUS/FACIAL BONE Coronal and Sagittal reconstruction series were provided. One or more dose reduction techniques were used (e.g., Automated exposure control, adjustment of the mA and/or kV according to patient size, use of iterative reconstruction technique). RADIATION DOSE SUMMARY: CTDlvol: 29.38 mGy DLP: 613 mGycm COMPARISON: None. FINDINGS: Right preseptal/anterior facial soft tissue hematoma. Secretions in the right maxillary sinus. Chronic deformity of the right nasal bone. Normal bilateral orbital contents. Normal bilateral medial and inferior orbitalwalls. Normal bilateral maxillary bones. Normal bilateral frontozygomatic arches. Normal bilateral zygomatic temporal arches. Normal nasal bones. Normal anterior nasal spine. There is no demonstrated fracture. Normal visualized frontal, ethmoidal and sphenoid sinuses. CT/Sinus/Facial Bone IMPRESSION: Right preseptal/anterior facial soft tissue hematoma extending to the right cheek. No associated acute fracture. Reading Location: [place] [address] CC: Dr. Rigoberto Durand MD; Dr. Kian Simons DO ~ Tobacco Grower: Signed [facility] 04-13-2025 Radiology Diagnostic study note [facility] [address] [place] [address] Brain/Head without Contrast MR#: [id number] Acct: [id number] Name: MEGAN NASCIMENTO Rep #: [id number] : 1940 M 84 From: Oswaldo Lu MD PCP: Dr. Rigoberto Durand MD Status: REG E R Study:Brain/Head without Contrast Date of Exa m: 04/13/25 Exam# [id number] Ordering Dr: Larissa Simons DO PROCEDURE: BRAIN/HEAD WITHOUT CONTRAST 04/13/2025 REASON FOR EXAM: FALL, HEAD TRAUMA TECHNIQUE: Procedure Code: CTBR Modality: CT Procedure: BRAIN/HEAD WITHOUT CONTRAST Coronal and Sagittal reconstruction series were provided. One or more dose reduction techniques were used (e.g., Automated exposure control, adjustment of the mA and/or kV according to patient size, use of iterative reconstruction technique. RADIATION DOSE SUMMARY: CTDlvol: 29.38 mGy DLP: 1953 mGycm COMPARISON: 04/01/2025. FINDINGS: Right anterior facial soft tissue hematoma/contusion. Secretions in the right maxillary sinus. Mild diffuse cortical atrophy, commensurate with the patient's age. Scattered hypodense foci in the periventricular and subcortical white matter suggestive of chronic ischemic white matter disease. Normal size of the ventricles and extra-axial spaces for the patient's age. Normal basal ganglia and thalami. Normal brainstem. Normal cerebellum. There is no demonstrated extra-axial, intraparenchymal, or intraventricular hemorrhage. There are no findings of an acute ischemic infarction. Normal calvarium. There is no demonstrated fracture. CT/Brain/Head without Contrast IMPRESSION: No CT evidence for acute brain abnormality. Reading Location: [place] [address] CC: Dr. Rigoberto Durand MD; Dr. Kian Simons DO ~ Tobacco Grower: Signed [facility] 04-07-2025 Note [facility] 04-07-2025 Consult note [facility] 04-07-2025 Discharge summary [facility] 04-07-2025 Progress note [facility] 04-07-2025 Progress note [facility] 04-07-2025 Consult note Note Date/Time April 07, 2025 3:53pm [facility] Medical Records Department [address] [place] [address] Counseling Note - Pharmacy 04/07/25 1334 MR#: [id number] Acct: [id number] Name: MEGAN NASCIMENTO Rep #:[id number] : 1940 84 From: Bert Smith ly PCP: Dr. Rigoberto Durand MD Status:ADM I N Y Location: [place] [address] Pharmacy [place] Med Reconciliation Pharmacy Service has performed discharge medication reconciliation for this patient. The patient's discharge medication list was reviewed for discrepancies and discrepancies were resolved. Medications at Discharge Home Medications levothyroxine 75 mcg tablet 75 mcg PO DAILY thyroid 06/28/21 mecobalamin (vitamin B12) 1,000 mcg chewable tablet (B12 Active) 1,000 mcg PO DAILY anemia 06/28/21 metoprolol succinate 100 mg tablet,extended release 24 hr 100 mg PO DAILY heart 06/28/21 arkyemotsxqj-uus-upvde acid-vit K-lycop 400 mcg-20 mcg-370 mcg tablet (Men's 50 Plus Multivitamin) 1 tab PO DAILY not on pcp med list 06/28/21 tamsulosin 0.4 mg capsule 0.4 mg PO DAILY . 06/28/21 pantoprazole 40 mg tablet,delayed release 40 mg PO BID #120 tabs 09/21/21 gabapentin 400 mg capsule 400 mg PO TID per md office list 11/27/23 glimepiride 1 mg tablet 1 mg PO DAILY . 11/27/23 rosuvastatin 20 mg tablet 20 mg PO DAILY per pcp 11/27/23 acetaminophen 325 mg tablet 650 mg (2 x 325 mg) PO Q6H PRN PRN Pain 1-10 Or Fever >100.7 #0 tabs 12/02/23 ferrous sulfate 325 mg (65 mg iron) tablet 325 mg PO QODAY #30 tabs 04/07/25 furosemide 40 mg tablet 40 mg PO BIDLX #0 tabs 04/07/25 insulin lispro 100 unit/mL subcutaneous pen (Humalog KwikPen (U-100) Insulin) See Protocol subcut TIDAC #0 mL 04/07/25 sacubitril 24 mg-valsartan 26 mg tablet 0.5 tab PO BID #0 tabs 04/07/25 sertraline 50 mg tablet 50 mg PO DAILY #0 tabs 04/07/25 spironolactone 25 mg tablet 12.5 mg (1/2 x 25 mg) PO DAILY #0 tabs 04/07/25 04/07/25 1339 <Electronically signed by Bert Watson> Date _ Bert Dwyer Signature (if applicable): Date CC: ~ Signed [facility] Work Phone: 1(884) 439-378709-18-2025 Discharge summary Author Jaden Cedillo [facility] Note Date/Time April 07, 2025 1:26pm [facility] Medical Records Department [address] [place] [address] Transfer to [facility] MR#: [id number] Acct: [id number] Name: MEGAN NASCIMENTO Rep #:[id number] : 1940 84 From: Jaden Griggs PCP: Dr. Rigoberto Durand MD Status:ADM I N Certification of patient admission REQUIRED AT TIME OF ADMISSION. I CERTIFY THAT POST-HOSPITAL ECF SERVICES ARE REQUIRED TO BE GIVEN ON AN IN-PATIENT BASIS BECAUSE OF THE ABOVE NAMED PATIENT'S NEED FOR FCI CARE ON A CONTINUING BASIS FOR THE CONDITION(S) FOR WHICH HE/SHE WAS RECEIVING IN-PATIENT HOSPITAL SERVICES PRIOR TO HIS/HER TRANSFER TO THE F. 04/07/25 1326<Electronically signed by Jaden Cedillo MD> Diet Diet Order/Speech Therapy: INPATIENT Hospital Diet / Speech Therapy Order(s) 04/05/25 04:03 Diet: Regular - General Food consistency:: Regular Liquid Consistency:: Regular/Thin Routine Orders/Code Status Suppository Type: Dulcolax 10mg Suppository Frequency: Daily PRN Routine Lab Work: BMP (BMP in 3 days, CKD stage IV) DC O2, CPAP, BIPAP needs Home O2 Discharge instructions: No Wound(s) top of right head: Wound Type: Laceration Therapies Extremity Affected:: Bilateral Lower Physical Therapy: Eval and Treat Occupational Therapy: Eval and Treat Speech Therapy: Eval and Treat Problem/Diagnosis (1) CKD (chronic kidney disease), stage IV: [...] 1. Generalized weakness with gentle fall at home?patient is being admitted in PCU. PT and OT. Probably, patient fell due to CHF exacerbation feeling weak and dyspnea on exertion consult case management for discharge planning. 04/06: Patient is too weak. Probably will need SNF. 2. Acute on chronic HFrEF:. BNP very high. Chest x-ray individually reviewed shows moderate bilateral effusion with bibasilar atelectasis. Central pulmonarycongestion and interstitial congestion. Change furosemide 40 mg p.o. twice daily to IV. Heart failure core measures including intake and output, fluid restriction less than 1500 mL, daily weight monitoring, kidney and electrolytes monitoring. 04/06 patient pulse ox 99% on room air. Continue furosemide 3. Diabetes mellitus type 2: Discontinue Amaryl. Serum glucose is in 80s. Continue routine insulin therapy, 04/06 glucose 71, 123 and 113 4. Hypothyroidism: TSH is elevated 13.7. Levothyroxine dose increased to 100 mcg daily. Free T4 thyroxine 1.20. 5. DVT prophylaxis, high risk?heparin 5000 subcutaneous every 12 hourly. Bilateral SCDs. Patient also high risk of bleeding due to CKD stage IV 6. Chronic kidney disease stage IV: Baseline creatinine clearance about 20- 25 mL/min. Creatinine around 2.3. UA benign., No significant proteinuria. CT abdomen with IV contrast on 04/01 without any hydronephrosis. Bilateral renal atrophy. Bladder unremarkable composite assembler consulted. Consult reviewed and appreciated 04/06: Creatinine improving, 2.11 at baseline. 7. CODE STATUS?full code verified. Laboratory Results 04/05/25 17:18: POC Glucose 113 H 04/06/25 02:20: Urine Color Yellow, Urine Clarity Clear, Urine pH 6.0, Ur Specific [place] 1.015, Urine Protein 15 H, Urine Glucose (UA) Normal, [...] of Anuradha 19.9 H, Plt Count 155, MPV10.4, Immature Gran % (Auto) 0.500, Neut % (Auto) 56.4, Lymph % (Auto) 21.7, [place] % (Auto) 12.8 H, Eos % (Auto) 6.8 H, Baso % (Auto) 1.8 H, Absolute Neuts (auto) 2.2, Absolute Lymphs (auto) 0.83, Nucleated RBC % 0, Sodium 141, Potassium 2.9 L, Chloride 106, Carbon Dioxide 19.4 L, Anion Gap 15, BUN 34 H, Creatinine 2.11 H, Estim Creat Clear Calc 26.44 L, Est GFR (MDRD) Non-Af 30 L, BUN/Creatinine Ratio 16.3, Glucose 77, Calcium 8.6, Total Bilirubin 1.81 H, Direct Bilirubin 1.13 H, AST 40 H, ALT 12, Alkaline Phosphatase 104, Total Protein 5.3 L, Albumin 3.1 L, Globulin 2.2, Free T4 1.20 04/06/25 06:51: POC Glucose 71 L 04/06/25 11:32: POC Glucose 123 H Clinical Impression(s) from Imaging Studies Chest X-Ray 04/05/25 00:36 IMPRESSION: Moderate bilateral pleural effusions. Passive atelectatic airspace disease of the lower lobes. Moderate central pulmonary venous congestion. Moderate interstitial pulmonary congestion. AICD is in good position. Enlarged cardiac silhouette. Echocardiogram 04/05/25 05:55 Interpretation Summary Severe global LV systolic dysfunction. Estimated LVEF 10%. Stage I diastolic dysfunction. There is severe biatrial dilatation. Mild (1+) mitral valve insufficiency. Severe (4+) tricuspid valve insufficiency. Mildly calcified aortic valve. Mild aortic valve stenosis. Mild aortic valve regurgitation. Mildly dilated aortic root. Moderate left pleural effusion. Allergies/Procedures Done in Hospital Allergies No Known Allergies Allergy (Verified 04/05/25 00:00) Type of Care/Length of Stay Estimated LOS: Convalescent Care Less Than 30 days Type of Care Needed: Skilled Rehab Potential: Good Prognosis: Good Additional Orders/Day of Discharge Day of Discharge: 04/07/25 Dietary and Speech Recommendations Dietitian Recommendations/Changes: Will adjust diet to Regular - no added salt to manage medical conditions. Will continue to monitor blood sugars and will adjusted diet if they become elevated. Discharge Plan Admission Admit Date/Time: 04/05/25 02:38 Primary Reason for Your Visit: CHF exacerbation Attending Provider: Jaden Cedillo Primary Care Provider: Rigoberto Durand Consulting Providers: Rigoberto Durand; Bushra Woodall Discharge Orders/Prescriptions Prescriptions: New spironolactone 25 mg Tablet 12.5 mg PO DAILY Qty: 0 0RF Rx Instructions: Hold for serum potassium more than 5.0 sertraline 50 mg Tablet 50 mg PO DAILY Qty: 0 0RF sacubitril-valsartan 24-26 mg Tablet 0.5 tab PO BID Qty: 0 0RF Rx Instructions: Hold for SBP less than 110 mmHg furosemide 40 mg Tablet 40 mg PO BIDLX Qty: 0 0RF insulin lispro [Humalog KwikPen Insulin] 100 unit/mL [...] infected, or steroid patients MEDIUM DOSING ALGORITHIM Continued pantoprazole 40 mg tablet,delayed release (DR/EC) 40 mg PO BID Qty: 120 3RF metoprolol succinate 100 mg Tablet Extended Release 24 Hr 100 mg PO DAILY levothyroxine 75 mcg Tablet 75 mcg PO DAILY tamsulosin 0.4 mg Capsule 0.4 mg PO DAILY Men's 50 Plus Multivitamin 400-20-370 mcg Tablet 1 tab PO DAILY mecobalamin (vitamin B12) [B12 Active] 1,000 mcg Tablet,Chewable 1,000 mcg PO DAILY gabapentin 400 mg capsule 400 mg PO TID glimepiride 1 mg tablet 1 mg PO DAILY rosuvastatin 20 mg tablet 20 mg PO DAILY Rx Instructions: source is per pcp med list acetaminophen 325 mg Tablet 650 mg PO Q6H PRN PRN (Reason: Pain 1-10 Or Fever >100.7) Qty: 0 0RF Changed ferrous sulfate 325 mg (65 mg iron) tablet 325 mg PO QODAY Qty: 30 0RF Discontinued sacubitril-valsartan [Entresto] 24-26 mg tablet 1 tab PO BID Patient Comments: Currently taking sucralfate [Carafate] 1 gram tablet 1 g PO BID doxycycline hyclate 100 mg tablet 100 mg PO BID sertraline 100 mg tablet 100 mg PO DAILY torsemide 20 mg tablet 40 mg PO .Daily Referrals / Follow Up: Bsuhra Woodall MD [Med Staff - Consulting, Nephrology] - Within 1 Week Referral Note: On Lasix spironolactone and Entresto for heart failure Ruddy White MD [Med Staff - Active Staff, Cardiology] - Within 2 Weeks Rigoberto Durand MD [Primary Care Provider, Family Practice] - Within 2 Weeks Disposition Disposition (needs filled in before D/C Order can be placed): [facility] 04/07/25 1326 <Electronically signed by Jaden Cedillo MD> Cosigner Signature (if applicable): CC: Dr. Bushra Woodall MD; Dr. Rigoberto Durand MD; Shaun Taveras DO ~ [facility] Work Phone: [phone]) 154-355209-18-2025 Discharge summary Author Jaden Cedillo [facility] Note Date/Time April 07, 2025 3:53pm [facility] Medical Records Department [address] [place] [address] Discharge Summary 04/07/25 1326 MR#: [id number] Acct: [id number] Name: MEGAN NASCIMENTO Rep #:[id number] : 1940 84 From: Jaden Griggs PCP: Dr. Rigoberto Durand MD Status:DIS I N Location: [place] [address] Providers Date of Admission: 04/05/25 Date of [...] 1. Generalized weakness with gentle fall at home?patient is being admitted in PCU. PT and OT. Probably, patient fell due to CHF exacerbation feeling weak and dyspnea on exertion consult case management for discharge planning. 04/06: Patient is too weak. Probably will need SNF. 04/07: [id number] prior authorization for SNF was done. Patient approved for SNF/TCU. 2. Acute on chronic HFrEF:. BNP very high. Chest x-ray individually reviewed shows moderate bilateral effusion with bibasilar atelectasis. Central pulmonarycongestion and interstitial congestion. Change furosemide 40 mg [...] T4 thyroxine 1.20. 5. DVT prophylaxis, high risk?heparin 5000 subcutaneous every 12 hourly. Bilateral SCDs. Patient also high risk of bleeding due to CKD stage IV 6. Chronic kidney disease stage IV: Baseline creatinine clearance about 20- 25 mL/min. Creatinine around 2.3. UA benign., No significant proteinuria. CT abdomen with IV contrast on 04/01 without any hydronephrosis. Bilateral renal atrophy. Bladder unremarkable composite assembler consulted. Consult reviewed and appreciated 04/06: Creatinine improving, 2.11 at baseline. 04/07: Creatinine is same 2.11. Follow-up with nephrology. Patient might be benefited by SGL 2 inhibitor empagliflozin to reduce the risk of sustained eGFR decline/ESKD/CV in view of HFrEF 7. CODE STATUS?full code verified. Discharge medication reconciliation done. Discharge follow-up instructions completed. Discharge process discussed with the patient and all questions wereanswered to patient's satisfaction. Follow with PCP in 1 to 2 weeks Total time spent, exact 35 minutes on discharge meds reconciliation, examination, coordination of care with nurses and ancillary staff, review of imaging and blood test and discussion with the patient on follow-up instructions. Laboratory Results 04/06/25 02:20: Urine Color Yellow, Urine Clarity Clear, Urine pH 6.0, Ur Specific [place] 1.015, Urine Protein 15 H, Urine Glucose (UA) Normal, [...] of Anuradha 19.9 H, Plt Count 155, MPV10.4, Immature Gran % (Auto) 0.500, Neut % (Auto) 56.4, Lymph % (Auto) 21.7, [place] % (Auto) 12.8 H, Eos % (Auto) 6.8 H, Baso % (Auto) 1.8 H, Absolute Neuts (auto) 2.2, Absolute Lymphs (auto) 0.83, Nucleated RBC % 0, Sodium 141, Potassium 2.9 L, Chloride 106, Carbon Dioxide 19.4 L, Anion Gap 15, BUN 34 H, Creatinine 2.11 H, Estim Creat Clear Calc 26.44 L, Est GFR (MDRD) Non-Af 30 L, BUN/Creatinine Ratio 16.3, Glucose 77, Calcium 8.6, Total Bilirubin 1.81 H, Direct Bilirubin 1.13 H, AST 40 H, ALT 12, Alkaline Phosphatase 104, Total Protein 5.3 L, Albumin 3.1 L, Globulin 2.2, Free T4 1.20 04/06/25 16:34: POC Glucose 139 H 04/06/25 22:00: POC Glucose 128 H 04/07/25 04:49: WBC 4.8, RBC 5.12, Hgb 15.0, Hct 44.2, MCV 86.3, MCH 29.3, MCHC 33.9, RDW Std Deviation 61.7 H, RDW Coeff of Anuradha 20.3 H, Plt Count 164, MPV 11.5, Immature Gran % (Auto) 0.400, Neut % (Auto) 63.5, Lymph % (Auto) 18.1 L, [place] % (Auto) 11.2 H, Eos % (Auto) 5.8 H, Baso % (Auto) 1.0, Absolute Neuts (auto) 3.1, Absolute Lymphs (auto) 0.87, Nucleated RBC % 0, Differential CommentSCANNED, Platelet Estimate ADEQUATE, Anisocytosis 2+, Ovalocytes 1+, Acanthocytes (Spur) 1+, Schistocytes RARE, Sodium 140, Potassium 3.7, Chloride 103, Carbon Dioxide 22.1, Anion Gap 15, BUN 34 H, Creatinine 2.11 H, Estim CreatClear Calc 26.44 L, Est GFR (MDRD) Non-Af 30 L, BUN/Creatinine Ratio 16.3, Glucose 93, Calcium 8.8 04/07/25 05:59: POC Glucose 92 04/07/25 11:28: POC Glucose 144 H Clinical Impression(s) from Imaging Studies Chest X-Ray 04/05/25 00:36 IMPRESSION: Moderate bilateral pleural effusions. Passive atelectatic airspace disease of the lower lobes. Moderate central pulmonary venous congestion. Moderate interstitial pulmonary congestion. AICD is in good position. Enlarged cardiac silhouette. Echocardiogram 04/05/25 05:55 Interpretation Summary Severe global LV systolic dysfunction. Estimated LVEF 10%. Stage I diastolic dysfunction. There is severe biatrial dilatation. Mild (1+) mitral valve insufficiency. Severe (4+) tricuspid valve insufficiency. Mildly calcified aortic valve. Mild aortic valve stenosis. Mild aortic valve regurgitation. Mildly dilated aortic root. Moderate left pleural effusion. Medications at Discharge Home Medications levothyroxine 75 mcg tablet 75 mcg PO DAILY thyroid 06/28/21 mecobalamin (vitamin B12) 1,000 mcg chewable tablet (B12 Active) 1,000 mcg PO DAILY anemia 06/28/21 metoprolol succinate 100 mg tablet,extended release 24 hr 100 mg PO DAILY heart 06/28/21 gyzsodyyfire-luz-abhcs acid-vit K-lycop 400 mcg-20 mcg-370 mcg tablet (Men's 50 Plus Multivitamin) 1 tab PO DAILY not on pcp med list 06/28/21 tamsulosin 0.4 mg capsule 0.4 mg PO DAILY . 06/28/21 pantoprazole 40 mg tablet,delayed release 40 mg PO BID #120 tabs 09/21/21 gabapentin 400 mg capsule 400 mg PO TID per md office list 11/27/23 glimepiride 1 mg tablet 1 mg PO DAILY . 11/27/23 rosuvastatin 20 mg tablet 20 mg PO DAILY per pcp 11/27/23 acetaminophen 325 mg tablet 650 mg (2 x 325 mg) PO Q6H PRN PRN Pain 1-10 Or Fever >100.7 #0 tabs 12/02/23 ferrous sulfate 325 mg (65 mg iron) tablet 325 mg PO QODAY #30 tabs 04/07/25 furosemide 40 mg tablet 40 mg PO BIDLX #0 tabs 04/07/25 insulin lispro 100 unit/mL subcutaneous pen (Humalog KwikPen (U-100) Insulin) See Protocol subcut TIDAC #0 mL 04/07/25 sacubitril 24 mg-valsartan 26 mg tablet 0.5 tab PO BID #0 tabs 04/07/25 sertraline 50 mg tablet 50 mg PO DAILY #0 tabs 04/07/25 spironolactone 25 mg tablet 12.5 mg (1/2 x 25 mg) PO DAILY #0 tabs 04/07/25 Physical Exam Narrative Seen and examined Shortness of breath is better. Lower legs, no tenderness or no pain Patient was admitted with generalized edema and dyspnea on exertion for 1-1/2 weeks. Denies chest pain. Physical exam General: Alert, Oriented x3, Cooperative. BMI 28.8 kg/m? HEENT: Atraumatic, PERRLA, EOMI, Normocephalic. Oral: Oral mucosa dry. No Gingival or Mucosal Lesions/ Ulcerations Neck: Supple, No JVD, Negative Carotid Bruits Chest wall/Lungs: Air entry diminished in bilateral lung bases. Lungs clear. Cardiovascular: systolic murmur. Paced rhythm. AICD present. Abdomen: Bowel Sounds Present, Soft, Non Tender, Non-Distended. No ascites : No dysuria. No renal angle tenderness. No suprapubic tenderness. Extremities: 2+ pedal edema. Capillary Refill Less than 3 Seconds Skin: Mild redness in both lower legs., Chronic venous congestion. No acute tenderness or induration. Not consistent with cellulitis Musculoskeletal: No Tenderness to Palpation of Joints or Extremities Neurological: Cranial nerves II-XII grossly intact, DTR 2+/4. No acute focal neurological deficit. Psych/Mental Status: Flat affect Weight / BMI Weight Weight: 183 lb 13.848 oz Body Mass Index (BMI) 28.8 ABG / Lab / Microbiology Data 04/07/25 04:49 04/07/25 04:49 Laboratory: Laboratory Results - last 24 hr 04/06/25 16:34: POC Glucose 139 H 04/06/25 22:00: POC Glucose 128 H 04/07/25 04:49: WBC 4.8, RBC 5.12, Hgb 15.0, Hct 44.2, MCV 86.3, MCH 29.3, MCHC 33.9, RDW Std Deviation 61.7 H, RDW Coeff of Anuradha 20.3 H, Plt Count 164, MPV 11.5, Immature Gran % (Auto) 0.400, Neut % (Auto) 63.5, Lymph % (Auto) 18.1 L, [place] % (Auto) 11.2 H, Eos % (Auto) 5.8 H, Baso % (Auto) 1.0, Absolute Neuts (auto) 3.1, Absolute Lymphs (auto) 0.87, Nucleated RBC % 0, Differential CommentSCANNED, Platelet Estimate ADEQUATE, Anisocytosis 2+, Ovalocytes 1+, Acanthocytes (Spur) 1+, Schistocytes RARE, Sodium 140, Potassium 3.7, Chloride 103, Carbon Dioxide 22.1, Anion Gap 15, BUN 34 H, Creatinine 2.11 H, Estim CreatClear Calc 26.44 L, Est GFR (MDRD) Non-Af 30 L, BUN/Creatinine Ratio 16.3, Glucose 93, Calcium 8.8 04/07/25 05:59: POC Glucose 92 04/07/25 11:28: POC Glucose 144 H D/C Instructions DC O2, CPAP, BIPAP Needs Home O2 Discharge instructions: No Meaningful Use Info Meaningful Use Meaningful Use Diagnoses (Choose all that apply): None applicable Discharge Plan Admission Admit Date/Time: 04/05/25 02:38 Primary Reason for Your Visit: CHF exacerbation Attending Provider: Jaden Cedillo Primary Care Provider: Rigoberto Durand Consulting Providers: Rigoberto Durand; Bushra Woodall Discharge Orders/Prescriptions Prescriptions: New spironolactone 25 mg Tablet 12.5 mg PO DAILY Qty: 0 0RF Rx Instructions: Hold for serum potassium more than 5.0 sertraline 50 mg Tablet 50 mg PO DAILY Qty: 0 0RF sacubitril-valsartan 24-26 mg Tablet 0.5 tab PO BID Qty: 0 0RF Rx Instructions: Hold for SBP less than 110 mmHg furosemide 40 mg Tablet 40 mg PO BIDLX Qty: 0 0RF insulin lispro [Humalog KwikPen Insulin] 100 unit/mL [...] infected, or steroid patients MEDIUM DOSING ALGORITHIM Continued pantoprazole 40 mg tablet,delayed release (DR/EC) 40 mg PO BID Qty: 120 3RF metoprolol succinate 100 mg Tablet Extended Release 24 Hr 100 mg PO DAILY levothyroxine 75 mcg Tablet 75 mcg PO DAILY tamsulosin 0.4 mg Capsule 0.4 mg PO DAILY Men's 50 Plus Multivitamin 400-20-370 mcg Tablet 1 tab PO DAILY mecobalamin (vitamin B12) [B12 Active] 1,000 mcg Tablet,Chewable 1,000 mcg PO DAILY gabapentin 400 mg capsule 400 mg PO TID glimepiride 1 mg tablet 1 mg PO DAILY rosuvastatin 20 mg tablet 20 mg PO DAILY Rx Instructions: source is per pcp med list acetaminophen 325 mg Tablet 650 mg PO Q6H PRN PRN (Reason: Pain 1-10 Or Fever >100.7) Qty: 0 0RF Changed ferrous sulfate 325 mg (65 mg iron) tablet 325 mg PO QODAY Qty: 30 0RF Discontinued sacubitril-valsartan [Entresto] 24-26 mg tablet 1 tab PO BID Patient Comments: Currently taking sucralfate [Carafate] 1 gram tablet 1 g PO BID doxycycline hyclate 100 mg tablet 100 mg PO BID sertraline 100 mg tablet 100 mg PO DAILY torsemide 20 mg tablet 40 mg PO .Daily Referrals / Follow Up: Bushra Woodall MD [Med Staff - Consulting, Nephrology] - Within 1 Week Referral Note: On Lasix spironolactone and Entresto for heart failure Ruddy White MD [Med Staff - Active Staff, Cardiology] - Within 2 Weeks Rigoberto Durand MD [Primary Care Provider, Family Practice] - Within 2 Weeks Disposition Disposition (needs filled in before D/C Order can be placed): [facility] Charges/Coding Visit Charges Inpatient E&M: 89059 Disch Hosp >30min 04/07/25 1604 <Electronically signed by Jaden Cedillo MD> Cosigner Signature (if applicable): CC: Dr. Bushra Woodall MD; Dr. Rigoberto Durand MD; Dr. Jaden Cedillo MD; Shaun Taveras DO~ Signed [facility] Work Phone: 1([phone]) 958-323709-18-2025 Hospital Discharge instructionsAdditional Instructions Date of Dis[facility]: [facility] Work Phone: [phone]) 996-718509-18-2025 Discharge summary [facility] Medical Records Department [address] [place] [address] Transfer to [facility] MR#: [id number] Acct: [id number] Name: MEGAN NASCIMENTO Rep #:[id number] : 1940 84 From: Jaden Griggs PCP: Dr. Rigoberto Durand MD Status:ADM I N Certification of patient admission REQUIRED AT TIME OF ADMISSION. I CERTIFY THAT POST-HOSPITAL ECF SERVICES ARE REQUIRED TO BE GIVEN ON AN IN-PATIENT BASIS BECAUSE OF THE ABOVE NAMED PATIENT'S NEED FOR FCI CARE ON A CONTINUING BASIS FOR THE CONDITION(S) FOR WHICH HE/SHE WAS RECEIVING IN-PATIENT HOSPITAL SERVICES PRIOR TO HIS/HER TRANSFER TO THE F. 04/07/25 1326 Diet Diet Order/Speech Therapy: INPATIENT Hospital Diet / Speech Therapy Order(s) 04/05/25 04:03 Diet: Regular - General Food consistency:: Regular Liquid Consistency:: Regular/Thin Routine Orders/Code Status Suppository Type: Dulcolax 10mg Suppository Frequency: Daily PRN Routine Lab Work: BMP (BMP in 3 days, CKD stage IV) DC O2, CPAP, BIPAP needs Home O2 Discharge instructions: No Wound(s) top of right head: Wound Type: Laceration Therapies Extremity Affected:: Bilateral Lower Physical Therapy: Eval and Treat Occupational Therapy: Eval and Treat Speech Therapy: Eval and Treat Problem/Diagnosis (1) CKD (chronic kidney disease), stage IV: [...] 1. Generalized weakness with gentle fall at home?patient is being admitted in PCU. PT and OT. Probably, patient fell due to CHF exacerbation feeling weak and dyspnea on exertion consult case management for discharge planning. 04/06: Patient is too weak. Probably will need SNF. 2. Acute on chronic HFrEF:. BNP very high. Chest x-ray individually reviewed shows moderate bilateral effusion with bibasilar atelectasis. Central pulmonarycongestion and interstitial congestion. Change furosemide 40 mg p.o. twice daily to IV. Heart failure core measures including intake and output, fluid restriction less than 1500 mL, daily weight monitoring, kidney and electrolytes monitoring. 04/06 patient pulse ox 99% on room air. Continue furosemide 3. Diabetes mellitus type 2: Discontinue Amaryl. Serum glucose is in 80s. Continue routine insulin therapy, 04/06 glucose 71, 123 and 113 4. Hypothyroidism: TSH is elevated 13.7. Levothyroxine dose increased to 100 mcg daily. Free T4 thyroxine 1.20. 5. DVT prophylaxis, high risk?heparin 5000 subcutaneous every 12 hourly. Bilateral SCDs. Patient also high risk of bleeding due to CKD stage IV 6. Chronic kidney disease stage IV: Baseline creatinine clearance about 20- 25 mL/min. Creatinine around 2.3. UA benign., No significant proteinuria. CT abdomen with IV contrast on 04/01 without any hydronephrosis. Bilateral renal atrophy. Bladder unremarkable composite assembler consulted. Consult reviewed and appreciated 04/06: Creatinine improving, 2.11 at baseline. 7. CODE STATUS?full code verified. Laboratory Results 04/05/25 17:18: POC Glucose 113 H 04/06/25 02:20: Urine Color Yellow, Urine Clarity Clear, Urine pH 6.0, Ur Specific [place] 1.015, Urine Protein 15 H, Urine Glucose (UA) Normal, [...] of Anuradha 19.9 H, Plt Count 155, MPV10.4, Immature Gran % (Auto) 0.500, Neut %(Auto) 56.4, Lymph % (Auto) 21.7, [place] % (Auto) 12.8 H, Eos % (Auto) 6.8 H, Baso % (Auto) 1.8 H, Absolute Neuts (auto) 2.2, Absolute Lymphs (auto) 0.83, Nucleated RBC % 0, Sodium 141, Potassium 2.9 L, Chloride 106, Carbon Dioxide 19.4 L, Anion Gap 15, BUN 34 H, Creatinine 2.11 H, Estim Creat Clear Calc 26.44 L, Est GFR (MDRD) Non-Af 30 L, BUN/Creatinine Ratio 16.3, Glucose 77, Calcium 8.6, Total Bilirubin 1.81 H, Direct Bilirubin 1.13 H, AST 40 H, ALT 12, Alkaline Phosphatase 104, Total Protein5.3 L, Albumin 3.1 L, Globulin 2.2, Free T4 1.20 04/06/25 06:51: POC Glucose 71 L 04/06/25 11:32: POC Glucose 123 H Clinical Impression(s) from Imaging Studies Chest X-Ray 04/05/25 00:36 IMPRESSION: Moderate bilateral pleural effusions. Passive atelectatic airspace disease of the lower lobes. Moderate central pulmonary venous congestion. Moderate interstitial pulmonary congestion. AICD is in good position. Enlarged cardiac silhouette. Echocardiogram 04/05/25 05:55 Interpretation Summary Severe global LV systolic dysfunction. Estimated LVEF 10%. Stage I diastolic dysfunction. There is severe biatrial dilatation. Mild (1+) mitral valve insufficiency. Severe (4+) tricuspid valve insufficiency. Mildly calcified aortic valve. Mild aortic valve stenosis. Mild aortic valve regurgitation. Mildly dilated aortic root. Moderate left pleural effusion. Allergies/Procedures Done in Hospital Allergies No Known Allergies Allergy (Verified 04/05/25 00:00) Type of Care/Length of Stay Estimated LOS: Convalescent Care Less Than 30 days Type of Care Needed: Skilled Rehab Potential: Good Prognosis: Good Additional Orders/Day of Discharge Day of Discharge: 04/07/25 Dietary and Speech Recommendations Dietitian Recommendations/Changes: Will adjust diet to Regular - no added salt to manage medical conditions. Will continue to monitor blood sugars and will adjusted diet if they become elevated. Discharge Plan Admission Admit Date/Time: 04/05/25 02:38 Primary Reason for Your Visit: CHF exacerbation Attending Provider: Jaden Cedillo Primary Care Provider: Rigoberto Durand Consulting Providers: Rigoberto Durand; Bushra Woodall Discharge Orders/Prescriptions Prescriptions: New spironolactone 25 mg Tablet 12.5 mg PO DAILY Qty: 0 0RF Rx Instructions: Hold for serum potassium more than 5.0 sertraline 50 mg Tablet 50 mg PO DAILY Qty: 0 0RF sacubitril-valsartan 24-26 mg Tablet 0.5 tab PO BID Qty: 0 0RF Rx Instructions: Hold for SBP less than 110 mmHg furosemide 40 mg Tablet 40 mg PO BIDLX Qty: 0 0RF insulin lispro [Humalog KwikPen Insulin] 100 unit/mL [...] infected, or steroid patients MEDIUM DOSING ALGORITHIM Continued pantoprazole 40 mg tablet,delayed release (DR/EC) 40 mg PO BID Qty: 120 3RF metoprolol succinate 100 mg Tablet Extended Release 24 Hr 100 mg PO DAILY levothyroxine 75 mcg Tablet 75 mcg PO DAILY tamsulosin 0.4 mg Capsule 0.4 mg PO DAILY Men's 50 Plus Multivitamin 400-20-370 mcg Tablet 1 tab PO DAILY mecobalamin (vitamin B12) [B12 Active] 1,000 mcg Tablet,Chewable 1,000 mcg PO DAILY gabapentin 400 mg capsule 400 mg PO TID glimepiride 1 mg tablet 1 mg PO DAILY rosuvastatin 20 mg tablet 20 mg PO DAILY Rx Instructions: source is per pcp med list acetaminophen 325 mg Tablet 650 mg PO Q6H PRN PRN (Reason: Pain 1-10 Or Fever >100.7) Qty: 0 0RF Changed ferrous sulfate 325 mg (65 mg iron) tablet 325 mg PO QODAY Qty: 30 0RF Discontinued sacubitril-valsartan [Entresto] 24-26 mg tablet 1 tab PO BID Patient Comments: Currently taking sucralfate [Carafate] 1 gram tablet 1 g PO BID doxycycline hyclate 100 mg tablet 100 mg PO BID sertraline 100 mg tablet 100 mg PO DAILY torsemide 20 mg tablet 40 mg PO .Daily Referrals / Follow Up: Bushra Woodall MD [Med Staff - Consulting, Nephrology] - Within 1 Week Referral Note: On Lasix spironolactone and Entresto for heart failure Ruddy White MD [Med Staff - Active Staff, Cardiology] - Within 2 Weeks Rigoberto Durand MD [Primary Care Provider, Family Practice] - Within 2 Weeks Disposition Disposition (needs filled in before D/C Order can be placed): [facility] 04/07/25 1326 Cosigner Signature (if applicable): CC: Dr. Bushra Woodall MD; Dr. Rigoberto Durand MD; Shaun Taveras DO [facility]09-18-2025 [facility]09-18-2025 Progress note Author Claudine Castano [facility] Note Date/Time April 07, 2025 3:53pm [facility] Medical Records Department [address] [place] [address] Progress Note - Nephrology 04/07/25954 MR#: [id number] Acct: [id number] Name: MEGAN NASCIMENTO Rep #:[id number] : 1940 84 From: Claudine garcia VC++ DEVELOPER-C PCP: Dr. Rigoberto Durand MD Status:DIS I N Location: [place] [address] Subjective Subjective Sitting in chair. No overnight events. States feeling well today. States breathing is good. Objective Data Objective Data Vital Signs: Vital Signs Temp Pulse Resp BP Pulse Ox O2 Del Method 97.7 F L 62 16 94/51 L 97 Room Air 04/07/25 04:04 04/07/25 04:04 04/07/25 04:04 04/07/25 04:04 04/07/25 04:04 04/07/25 09:02 Oxygen Delivery Method Room Air Weight: 83.4 kg Body Mass Index (BMI) 28.8 Intake & Output: Intake and Output for Last 24 Hours 04/05/25 04/06/25 04/07/25 23:59 23:59 23:59 Intake Total 895 / 895 150 / 150 Output Total 800 / 800 Balance 895 / 895 -650 / -650 Lab / Micro Data 04/07/25 04:49 04/07/25 04:49 Labs: Laboratory Results - last 24 hr 04/06/25 11:32: POC Glucose 123 H 04/06/25 16:34: POC Glucose 139 H 04/06/25 22:00: POC Glucose 128 H 04/07/25 04:49: WBC 4.8, RBC 5.12, Hgb 15.0, Hct 44.2, MCV 86.3, MCH 29.3, MCHC 33.9, RDW Std Deviation 61.7 H, RDW Coeff of Anuradha 20.3 H, Plt Count 164, MPV 11.5, Immature Gran % (Auto) 0.400, Neut % (Auto) 63.5, Lymph % (Auto) 18.1 L, [place] % (Auto) 11.2 H, Eos % (Auto) 5.8 H, Baso % (Auto) 1.0, Absolute Neuts (auto) 3.1, Absolute Lymphs (auto) 0.87, Nucleated RBC % 0, Differential CommentSCANNED, Platelet Estimate ADEQUATE, Anisocytosis 2+, Ovalocytes 1+, Acanthocytes (Spur) 1+, Schistocytes RARE, Sodium 140, Potassium 3.7, Chloride 103, Carbon Dioxide 22.1, Anion Gap 15, BUN 34 H, Creatinine 2.11 H, Estim CreatClear Calc 26.44 L, Est GFR (MDRD) Non-Af 30 L, BUN/Creatinine Ratio 16.3, Glucose 93, Calcium 8.8 04/07/25 05:59: POC Glucose 92 Physical Exam Narrative Alert awake oriented x 3 no obvious distress no JVD s1s2 no murmurs lungs clear, no wheezes, rhonchi or rales. On room air abdomen soft +edema lower legs Assessment & Plan Assessment/Plan (1) CKD (chronic kidney disease), stage IV: PLAN: - GABI superimposed on CKD stage IV; reviewed prior records, his creatininehas fluctuated between 2.1-2.3 over the last several months. Urine analysis wasfairly benign, no significant proteinuria. CT abdomen without any hydronephrosis. Clinically volume overloaded, was on Lasix 40 mg IV twice dailywith good response, now on oral Lasix. Echo: EF 10%, stage I diastolic dysfunction, severe tricuspid valve insufficiency, severe biatrial dilatation, severe global LV systolic dysfunction. Patient is on room air. Has good urine output. 04/05 SCr 2.36 --> 2.11 mg/dL --> SCr 2.11mg/dL again today. Potassium normal today. Discharge plans in progress possibly to rehab facility. Discussed with Dr. Cedillo. Assessment and plan reviewed with Dr. Woodall. 04/07/25 0958 <Electronically signed by Claudine DOVER> Cosigner Signature (if applicable): 04/11/25 1001 <Electronically signed by Bushra Woodall MD> CC: ~ Signed [facility] Work Phone: [phone] 501-657609-17-2025 Progress note Author Jaden Cedillo [facility] Note Date/Time April 06, 2025 3:38pm [facility] Medical Records Department [address] [place] [address] Progress Note - Hospitalist 04/06/25 0834 MR#: [id number] Acct: [id number] Name: MEGAN NASCIMENTO Rep #:[id number] : 1940 84 From: Jaden Griggs PCP: Dr. Rigoberto Durand MD Status:ADM I N Location: [place] [address] Reason for Visit Chief Complaint: Fall/generalized weakness Objective Data Objective Data Vital Signs: Vital Signs Temp Pulse Resp BP Pulse Ox O2 Del Method 97.6 F L 60 16 100/60 97 Room Air 04/06/25 04:00 04/06/25 04:00 04/06/25 04:00 04/06/25 04:00 04/06/25 04:00 04/06/25 04:00 Oxygen Delivery Method Room Air Weight: 183 lb 13.848 oz Body Mass Index (BMI) 28.8 Intake & Output: Intake and Output for Last 24 Hours 04/04/25 04/05/25 04/06/25 23:59 23:59 23:59 Intake Total 895 / 895 Output Total 300 / 300 Balance 895 / 895 -300 / -300 Lab / Micro Data 04/06/25 04:44 04/06/25 04:44 Labs: Laboratory Results - last 24 hr 04/05/25 06:07: Total Bilirubin 2.01 H, Direct Bilirubin 1.03 H, AST 54 H, ALT 15, Alkaline Phosphatase 118, Total Protein 6.3, Albumin 3.4, Globulin 2.9 04/05/25 11:09: POC Glucose 99 04/05/25 17:18: POC Glucose 113 H 04/06/25 02:20: Urine Color Yellow, Urine Clarity Clear, Urine pH 6.0, Ur Specific [place] 1.015, Urine Protein 15 H, Urine Glucose (UA) Normal, [...] of Anuradha 19.9 H, Plt Count 155, MPV10.4, Immature Gran % (Auto) 0.500, Neut % (Auto) 56.4, Lymph % (Auto) 21.7, [place] % (Auto) 12.8 H, Eos % (Auto) 6.8 H, Baso % (Auto) 1.8 H, Absolute Neuts (auto) 2.2, Absolute Lymphs (auto) 0.83, Nucleated RBC % 0, Sodium 141, Potassium 2.9 L, Chloride 106, Carbon Dioxide 19.4 L, Anion Gap 15, BUN 34 H, Creatinine 2.11 H, Estim Creat Clear Calc 26.44 L, Est GFR (MDRD) Non-Af 30 L, BUN/Creatinine Ratio 16.3, Glucose 77, Calcium 8.6, Total Bilirubin 1.81 H, Direct Bilirubin 1.13 H, AST 40 H, ALT 12, Alkaline Phosphatase 104, Total Protein 5.3 L, Albumin 3.1 L, Globulin 2.2, Free T4 1.20 04/06/25 06:51: POC Glucose 71 L Radiography Diagnostic Testing: Radiology Impression Echocardiogram 04/05/25 05:55 Interpretation Summary Severe global LV systolic dysfunction. Estimated LVEF 10%. Stage I diastolic dysfunction. There is severe biatrial dilatation. Mild (1+) mitral valve insufficiency. Severe (4+) tricuspid valve insufficiency. Mildly calcified aortic valve. Mild aortic valve stenosis. Mild aortic valve regurgitation. Mildly dilated aortic root. Moderate left pleural effusion. Ordering Physician: Rigoberto Durand Referring Physician: Rigoberto Brandt Performed By: Julia Cordova, RDCS, RVT Physical Exam Narrative Seen and examined Shortness of breath is better. Patient was admitted with generalized edema and dyspnea on exertion for 1-1/2 weeks. Denies chest pain. Physical exam General: Alert, Oriented x3, Cooperative. BMI 28.8 kg/m? HEENT: Atraumatic, PERRLA, EOMI, Normocephalic. Oral: Oral mucosa dry. No Gingival or Mucosal Lesions/ Ulcerations Neck: Supple, No JVD, Negative Carotid Bruits Chest wall/Lungs: Air entry diminished in bilateral lung bases. Mild bilateralcrepitations Cardiovascular: systolic murmur. Paced rhythm. AICD present. Abdomen: Bowel Sounds Present, Soft, Non Tender, Non-Distended. No ascites : No dysuria. No renal angle tenderness. No suprapubic tenderness. Extremities: 2+ pedal edema. Capillary Refill Less than 3 Seconds Skin: No rashes, No breakdown Musculoskeletal: No Tenderness to Palpation of Joints or Extremities Neurological: Cranial nerves II-XII grossly intact, DTR 2+/4. No acute focal neurological deficit. Psych/Mental Status: Flat affect Assessment & Plan Assessment/Plan (1) Fall: (2) Rhabdomyolysis: (3) Generalized weakness: (4) Congestive heart failure: (5) Diabetes: PLAN: Plan 84-year-old gentleman was admitted with generalized weakness, slid down from rollator to the floor while using bathroom. Denies hitting head or LOC. Patient has a long laying on the floor for approximately more than 5 hours. Inability to take care of himself. 1. Generalized weakness with gentle fall at home?patient is being admitted in PCU. PT and OT. Probably, patient fell due to CHF exacerbation feeling weak and dyspnea on exertion consult case management for discharge planning. 04/06: Patient is too weak. Probably will need SNF. 2. Acute on chronic HFrEF:. BNP very high. Chest x-ray individually reviewed shows moderate bilateral effusion with bibasilar atelectasis. Central pulmonarycongestion and interstitial congestion. Change furosemide 40 mg p.o. twice daily to IV. Heart failure core measures including intake and output, fluid restriction less than 1500 mL, daily weight monitoring, kidney and electrolytes monitoring. 04/06 patient pulse ox 99% on room air. Continue furosemide 3. Diabetes mellitus type 2: Discontinue Amaryl. Serum glucose is in 80s. Continue routine insulin therapy, 04/06 glucose 71, 123 and 113 4. Hypothyroidism: TSH is elevated 13.7. Levothyroxine dose increased to 100 mcg daily. Free T4 thyroxine 1.20. 5. DVT prophylaxis, high risk?heparin 5000 subcutaneous every 12 hourly. Bilateral SCDs. Patient also high risk of bleeding due to CKD stage IV 6. Chronic kidney disease stage IV: Baseline creatinine clearance about 20- 25 mL/min. Creatinine around 2.3. UA benign., No significant proteinuria. CT abdomen with IV contrast on 04/01 without any hydronephrosis. Bilateral renal atrophy. Bladder unremarkable composite assembler consulted. Consult reviewed and appreciated 04/06: Creatinine improving, 2.11 at baseline. 7. CODE STATUS?full code verified. Laboratory Results 04/05/25 17:18: POC Glucose 113 H 04/06/25 02:20: Urine Color Yellow, Urine Clarity Clear, Urine pH 6.0, Ur Specific [place] 1.015, Urine Protein 15 H, Urine Glucose (UA) Normal, [...] of Anuradha 19.9 H, Plt Count 155, MPV10.4, Immature Gran % (Auto) 0.500, Neut % (Auto) 56.4, Lymph % (Auto) 21.7, [place] % (Auto) 12.8 H, Eos % (Auto) 6.8 H, Baso % (Auto) 1.8 H, Absolute Neuts (auto) 2.2, Absolute Lymphs (auto) 0.83, Nucleated RBC % 0, Sodium 141, Potassium 2.9 L, Chloride 106, Carbon Dioxide 19.4 L, Anion Gap 15, BUN 34 H, Creatinine 2.11 H, Estim Creat Clear Calc 26.44 L, Est GFR (MDRD) Non-Af 30 L, BUN/Creatinine Ratio 16.3, Glucose 77, Calcium 8.6, Total Bilirubin 1.81 H, Direct Bilirubin 1.13 H, AST 40 H, ALT 12, Alkaline Phosphatase 104, Total Protein 5.3 L, Albumin 3.1 L, Globulin 2.2, Free T4 1.20 04/06/25 06:51: POC Glucose 71 L 04/06/25 11:32: POC Glucose 123 H Clinical Impression(s) from Imaging Studies Chest X-Ray 04/05/25 00:36 IMPRESSION: Moderate bilateral pleural effusions. Passive atelectatic airspace disease of the lower lobes. Moderate central pulmonary venous congestion. Moderate interstitial pulmonary congestion. AICD is in good position. Enlarged cardiac silhouette. Echocardiogram 04/05/25 05:55 Interpretation Summary Severe global LV systolic dysfunction. Estimated LVEF 10%. Stage I diastolic dysfunction. There is severe biatrial dilatation. Mild (1+) mitral valve insufficiency. Severe (4+) tricuspid valve insufficiency. Mildly calcified aortic valve. Mild aortic valve stenosis. Mild aortic valve regurgitation. Mildly dilated aortic root. Moderate left pleural effusion. Charges/Coding Visit Charges Inpatient E&M: 47285 Subs Hosp L2 04/06/25 1533 <Electronically signed by Jaden Cedillo MD> Cosigner Signature (if applicable): CC: ~ Signed [facility] Work Phone: [phone] 885-583609-17-2025 Progress note [facility] Medical Records Department [facility] [place] [address] Progress Note - Hospitalist 04/06/25 4784 MR#: [id number] Acct: [id number] Name: MEGAN NASCIMENTO Rep #:[id number] : 1940 84 From: Jaden Griggs PCP: Dr. Rigoberto Durand MD Status:ADM I N Location: [place] [address] Reason for Visit Chief Complaint: Fall/generalized weakness Objective Data Objective Data Vital Signs: Vital Signs Temp Pulse Resp BP Pulse Ox O2 Del Method 97.6 F L 60 16 100/60 97 Room Air 04/06/25 04:00 04/06/25 04:00 04/06/25 04:00 04/06/25 04:00 04/06/25 04:00 04/06/25 04:00 Oxygen Delivery Method Room Air Weight: 183 lb 13.848 oz Body Mass Index (BMI) 28.8 Intake & Output: Intake and Output for Last 24 Hours 04/04/25 04/05/25 04/06/25 23:59 23:59 23:59 Intake Total 895 / 895 Output Total 300 / 300 Balance 895 / 895 -300 / -300 Lab / Micro Data 04/06/25 04:44 04/06/25 04:44 Labs: Laboratory Results - last 24 hr 04/05/25 06:07: Total Bilirubin 2.01 H, Direct Bilirubin 1.03 H, AST 54 H, ALT 15, Alkaline Phosphatase 118, Total Protein 6.3, Albumin 3.4, Globulin 2.9 04/05/25 11:09: POC Glucose 99 04/05/25 17:18: POC Glucose 113 H 04/06/25 02:20: Urine Color Yellow, Urine Clarity Clear, Urine pH 6.0, Ur Specific [place] 1.015, Urine Protein 15 H, Urine Glucose (UA) Normal, [...] of Anuradha 19.9 H, Plt Count 155, MPV10.4, Immature Gran % (Auto) 0.500, Neut %(Auto) 56.4, Lymph % (Auto) 21.7, [place] % (Auto) 12.8 H, Eos % (Auto) 6.8 H, Baso % (Auto) 1.8 H, Absolute Neuts (auto) 2.2, Absolute Lymphs (auto) 0.83, Nucleated RBC % 0, Sodium 141, Potassium 2.9 L, Chloride 106, Carbon Dioxide 19.4 L, Anion Gap 15, BUN 34 H, Creatinine 2.11 H, Estim Creat Clear Calc 26.44 L, Est GFR (MDRD) Non-Af 30 L, BUN/Creatinine Ratio 16.3, Glucose 77, Calcium 8.6, Total Bilirubin 1.81 H, Direct Bilirubin 1.13 H, AST 40 H, ALT 12, Alkaline Phosphatase 104, Total Protein5.3 L, Albumin 3.1 L, Globulin 2.2, Free T4 1.20 04/06/25 06:51: POC Glucose 71 L Radiography Diagnostic Testing: Radiology Impression Echocardiogram 04/05/25 05:55 Interpretation Summary Severe global LV systolic dysfunction. Estimated LVEF 10%. Stage I diastolic dysfunction. There is severe biatrial dilatation. Mild (1+) mitral valve insufficiency. Severe (4+) tricuspid valve insufficiency. Mildly calcified aortic valve. Mild aortic valve stenosis. Mild aortic valve regurgitation. Mildly dilated aortic root. Moderate left pleural effusion. Ordering Physician: Rigoberto Durand Referring Physician: Rigoberto Brandt Performed By: Julia Cordova, DONTA, RVT Physical Exam Narrative Seen and examined Shortness of breath is better. Patient was admitted with generalized edema and dyspnea on exertion for 1-1/2 weeks. Denies chest pain. Physical exam General: Alert, Oriented x3, Cooperative. BMI 28.8 kg/m? HEENT: Atraumatic, PERRLA, EOMI, Normocephalic. Oral: Oral mucosa dry. No Gingival or Mucosal Lesions/ Ulcerations Neck: Supple, No JVD, Negative Carotid Bruits Chest wall/Lungs: Air entry diminished in bilateral lung bases. Mild bilateralcrepitations Cardiovascular: systolic murmur. Paced rhythm. AICD present. Abdomen: Bowel Sounds Present, Soft, Non Tender, Non-Distended. No ascites : No dysuria. No renal angle tenderness. No suprapubic tenderness. Extremities: 2+ pedal edema. Capillary Refill Less than 3 Seconds Skin: No rashes, No breakdown Musculoskeletal: No Tenderness to Palpation of Joints or Extremities Neurological: Cranial nerves II-XII grossly intact, DTR 2+/4. No acute focal neurological deficit. Psych/Mental Status: Flat affect Assessment & Plan Assessment/Plan (1) Fall: (2) Rhabdomyolysis: (3) Generalized weakness: (4) Congestive heart failure: (5) Diabetes: PLAN: Plan 84-year-old gentleman was admitted with generalized weakness, slid down from rollator to the floor while using bathroom. Denies hitting head or LOC. Patient has a long laying on the floor for approximately more than 5 hours. Inability to take care of himself. 1. Generalized weakness with gentle fall at home?patient is being admitted in PCU. PT and OT. Probably, patient fell due to CHF exacerbation feeling weak and dyspnea on exertion consult case management for discharge planning. 04/06: Patient is too weak. Probably will need SNF. 2. Acute on chronic HFrEF:. BNP very high. Chest x-ray individually reviewed shows moderate bilateral effusion with bibasilar atelectasis. Central pulmonarycongestion and interstitial congestion. Change furosemide 40 mg p.o. twice daily to IV. Heart failure core measures including intake and output, fluid restriction less than 1500 mL, daily weight monitoring, kidney and electrolytes monitoring. 04/06 patient pulse ox 99% on room air. Continue furosemide 3. Diabetes mellitus type 2: Discontinue Amaryl. Serum glucose is in 80s. Continue routine insulin therapy, 04/06 glucose 71, 123 and 113 4. Hypothyroidism: TSH is elevated 13.7. Levothyroxine dose increased to 100 mcg daily. Free T4 thyroxine 1.20. 5. DVT prophylaxis, high risk?heparin 5000 subcutaneous every 12 hourly. Bilateral SCDs. Patient also high risk of bleeding due to CKD stage IV 6. Chronic kidney disease stage IV: Baseline creatinine clearance about 20- 25 mL/min. Creatinine around 2.3. UA benign., No significant proteinuria. CT abdomen with IV contrast on 04/01 without any hydronephrosis. Bilateral renal atrophy. Bladder unremarkable composite assembler consulted. Consult reviewed and appreciated 04/06: Creatinine improving, 2.11 at baseline. 7. CODE STATUS?full code verified. Laboratory Results 04/05/25 17:18: POC Glucose 113 H 04/06/25 02:20: Urine Color Yellow, Urine Clarity Clear, Urine pH 6.0, Ur Specific [place] 1.015, Urine Protein 15 H, Urine Glucose (UA) Normal, [...] of Anuradha 19.9 H, Plt Count 155, MPV10.4, Immature Gran % (Auto) 0.500, Neut %(Auto) 56.4, Lymph % (Auto) 21.7, [place] % (Auto) 12.8 H, Eos % (Auto) 6.8 H, Baso % (Auto) 1.8 H, Absolute Neuts (auto) 2.2, Absolute Lymphs (auto) 0.83, Nucleated RBC % 0, Sodium 141, Potassium 2.9 L, Chloride 106, Carbon Dioxide 19.4 L, Anion Gap 15, BUN 34 H, Creatinine 2.11 H, Estim Creat Clear Calc 26.44 L, Est GFR (MDRD) Non-Af 30 L, BUN/Creatinine Ratio 16.3, Glucose 77, Calcium 8.6, Total Bilirubin 1.81 H, Direct Bilirubin 1.13 H, AST 40 H, ALT 12, Alkaline Phosphatase 104, Total Protein5.3 L, Albumin 3.1 L, Globulin 2.2, Free T4 1.20 04/06/25 06:51: POC Glucose 71 L 04/06/25 11:32: POC Glucose 123 H Clinical Impression(s) from Imaging Studies Chest X-Ray 04/05/25 00:36 IMPRESSION: Moderate bilateral pleural effusions. Passive atelectatic airspace disease of the lower lobes. Moderate central pulmonary venous congestion. Moderate interstitial pulmonary congestion. AICD is in good position. Enlarged cardiac silhouette. Echocardiogram 04/05/25 05:55 Interpretation Summary Severe global LV systolic dysfunction. Estimated LVEF 10%. Stage I diastolic dysfunction. There is severe biatrial dilatation. Mild (1+) mitral valve insufficiency. Severe (4+) tricuspid valve insufficiency. Mildly calcified aortic valve. Mild aortic valve stenosis. Mild aortic valve regurgitation. Mildly dilated aortic root. Moderate left pleural effusion. Charges/Coding Visit Charges Inpatient E&M: 59009 Subs Hosp L2 04/06/25 5948 Cosigner Signature (if applicable): CC: ~ Signed [facility]09-17-2025 Progress note Author Claudine Castano [facility] Note Date/Time April 07, 2025 3:53pm [facility] Medical Records Department [address] [place] [address] Progress Note - Nephrology 04/06/25 1123 MR#: [id number] Acct: [id number] Name: MEGAN NASCIMENTO Rep #:[id number] : 1940 84 From: Claudine garcia VC++ DEVELOPER-C PCP: Dr. Rigoberto Durand MD Status:DIS I N Location: [place] [address] Subjective Subjective Following for GABI on CKD Patient sitting in chair. Denies any complaints. No overnight events. States feeling better, breathing better. Objective Data Objective Data Vital Signs: Vital Signs Temp Pulse Resp BP Pulse Ox O2 Del Method 97.6 F L 60 16 109/66 95 Room Air 04/06/25 09:00 04/06/25 09:00 04/06/25 09:00 04/06/25 09:00 04/06/25 09:00 04/06/25 09:35 Oxygen Delivery Method Room Air Weight: 83.4 kg Body Mass Index (BMI) 28.8 Intake & Output: Intake and Output for Last 24 Hours 04/04/25 04/05/25 04/06/25 23:59 23:59 23:59 Intake Total 895 / 895 Output Total 300 / 300 Balance 895 / 895 -300 / -300 Lab / Micro Data 04/06/25 04:44 04/06/25 04:44 Labs: Laboratory Results - last 24 hr 04/05/25 11:09: POC Glucose 99 04/05/25 17:18: POC Glucose 113 H 04/06/25 02:20: Urine Color Yellow, Urine Clarity Clear, Urine pH 6.0, Ur Specific [place] 1.015, Urine Protein 15 H, Urine Glucose (UA) Normal, [...] of Anuradha 19.9 H, Plt Count 155, MPV10.4, Immature Gran % (Auto) 0.500, Neut % (Auto) 56.4, Lymph % (Auto) 21.7, [place] % (Auto) 12.8 H, Eos % (Auto) 6.8 H, Baso % (Auto) 1.8 H, Absolute Neuts (auto) 2.2, Absolute Lymphs (auto) 0.83, Nucleated RBC % 0, Sodium 141, Potassium 2.9 L, Chloride 106, Carbon Dioxide 19.4 L, Anion Gap 15, BUN 34 H, Creatinine 2.11 H, Estim Creat Clear Calc 26.44 L, Est GFR (MDRD) Non-Af 30 L, BUN/Creatinine Ratio 16.3, Glucose 77, Calcium 8.6, Total Bilirubin 1.81 H, Direct Bilirubin 1.13 H, AST 40 H, ALT 12, Alkaline Phosphatase 104, Total Protein 5.3 L, Albumin 3.1 L, Globulin 2.2, Free T4 1.20 04/06/25 06:51: POC Glucose 71 L Physical Exam Narrative Alert awake oriented x 3 no obvious distress no JVD s1s2 no murmurs lungs clear abdomen soft ++ edema lower legs External Barroso catheter with straw-colored urine in canister Assessment & Plan Assessment/Plan (1) CKD (chronic kidney disease), stage IV: PLAN: - GABI superimposed on CKD stage IV; reviewed prior records, his creatininehas fluctuated between 2.1-2.3 over the last several months. Urine analysis wasfairly benign, no significant proteinuria. CT abdomen without any hydronephrosis. Clinically volume overloaded, on Lasix 40 mg IV twice daily. Echo: EF 10%, stage I diastolic dysfunction, severe tricuspid valve insufficiency, severe biatrial dilatation, severe global LV systolic dysfunction. Today patient is on room air. Has urine output. SCr 2.36 yesterday --> 2.11 mg/dL today. Will continue Lasix again for today. Potassium2.9 today, replace potassium. Discharge plans in progress possibly to rehab facility. Assessment and plan reviewed with Dr. Woodall. 04/06/25 1132 <Electronically signed by Claudine DOVER> Cosigner Signature (if applicable): 04/11/25 1001 <Electronically signed by Bushra Woodall MD> CC: ~ Signed [facility] Work Phone: 1(188) 984-797309-16-2025 Progress note Author Jaden Cedillo [facility] Note Date/Time April 05, 2025 1:50pm [facility] Medical Records Department [address] [place] [address] Progress Note - Hospitalist 04/05/25 0733 MR#: [id number] Acct: [id number] Name: MEGAN NASCIMENTO Rep #:[id number] : 1940 84 From: Jaden Griggs PCP: Dr. Rigoberto Durand MD Status:ADM I N Location: [place] [address] Reason for Visit Chief Complaint: Fall/generalized weakness Objective Data Objective Data Vital Signs: Vital Signs Temp Pulse Resp BP Pulse Ox O2 Del Method 97.5 F L 60 16 111/67 98 Room Air 04/05/25 03:40 04/05/25 04:50 04/05/25 03:40 04/05/25 03:40 04/05/25 05:00 04/05/25 05:00 Oxygen Delivery Method Room Air Weight: 183 lb 13.848 oz Body Mass Index (BMI) 28.8 Intake & Output: Intake and Output for Last 24 Hours 04/03/25 04/04/25 04/05/25 23:59 23:59 23:59 Intake Total 120 / 120 Balance 120 / 120 Lab / Micro Data 04/05/25 06:07 04/05/25 06:07 Labs: Laboratory Results - last 24 hr 04/05/25 00:25: WBC 6.0, RBC 5.46, Hgb 16.2, Hct 46.9, MCV 85.9, MCH 29.7, MCHC 34.5, RDW Std Deviation 60.8 H, RDW Coeff of Anuradha 20.6 H, Plt Count 194, MPV 11.2, Immature Gran % (Auto) 0.500, Neut % (Auto) 70.4 H, Lymph % (Auto) 14.4 L,[place] % (Auto) 11.2 H, Eos % (Auto) 2.2, Baso % (Auto) 1.3 H, Absolute Neuts (auto) 4.2, Absolute Lymphs (auto) 0.86, Nucleated RBC % 0, Differential CommentSCANNED, Plt Morphology Comment LARGE, Anisocytosis 1+, Ovalocytes RARE, Sodium 141, Potassium 3.7, Chloride 103, Carbon Dioxide 19.6 L, Anion Gap 18 H,BUN 36 H, Creatinine 2.38 H, Estim Creat Clear Calc 23.30 L, Est GFR (MDRD) Non-Af 26 L, BUN/Creatinine Ratio 15.0, Glucose 75, Calcium 9.4, Magnesium 2.0, Total Creatine Kinase 449 H, [place] II > 12840 H, TSH 13.700 H 04/05/25 06:59: POC Glucose 91 Radiography Diagnostic Testing: Radiology Impression Chest X-Ray 04/05/25 00:36 IMPRESSION: Moderate bilateral pleural effusions. Passive atelectatic airspace disease of the lower lobes. Moderate central pulmonary venous congestion. Moderate interstitial pulmonary congestion. AICD is in good position. Enlarged cardiac silhouette. Reading Location: [place] [address] Physical Exam Narrative Seen and examined Patient is getting edematous and dyspnea on exertion for 1-1/2 weeks. Denies chest pain. Physical exam General: Alert, Oriented x3, Cooperative. BMI 28.8 kg/m? HEENT: Atraumatic, PERRLA, EOMI, Normocephalic. Oral: Oral mucosa dry. No Gingival or Mucosal Lesions/ Ulcerations Neck: Supple, No JVD, Negative Carotid Bruits Chest wall/Lungs: Air entry diminished in bilateral lung bases. Bilateral finecrepitations Cardiovascular: systolic murmur. Paced rhythm. AICD present. Abdomen: Bowel Sounds Present, Soft, Non Tender, Non-Distended. No ascites : No dysuria. No renal angle tenderness. No suprapubic tenderness. Extremities: 3+ pedal edema. Capillary Refill Less than 3 Seconds Skin: No rashes, No breakdown Musculoskeletal: No Tenderness to Palpation of Joints or Extremities Neurological: Cranial nerves II-XII grossly intact, DTR 2+/4. No acute focal neurological deficit. Psych/Mental Status: Flat affect Assessment & Plan Assessment/Plan (1) Fall: (2) Rhabdomyolysis: (3) Generalized weakness: (4) Congestive heart failure: (5) Diabetes: PLAN: Plan 84-year-old gentleman was admitted with generalized weakness, slid down from rollator to the floor while using bathroom. Denies hitting head or LOC. Patient has a long laying on the floor for approximately more than 5 hours. Inability to take care of himself. 1. Generalized weakness with gentle fall at home?patient is being admitted in PCU. PT and OT. Probably, patient fell due to CHF exacerbation feeling weak and dyspnea on exertion consult case management for discharge planning. 2. Acute on chronic HFrEF:. BNP very high. Chest x-ray individually reviewed shows moderate bilateral effusion with bibasilar atelectasis. Central pulmonarycongestion and interstitial congestion. Change furosemide 40 mg p.o. twice daily to IV. Heart failure core measures including intake and output, fluid restriction less than 1500 mL, daily weight monitoring, kidney and electrolytes monitoring. 3. Diabetes mellitus type 2: Discontinue Amaryl. Serum glucose is in 80s. Continue routine insulin therapy, 4. Hypothyroidism: TSH is elevated 13.7. Levothyroxine dose increased to 100 mcg daily. Free T4 thyroxine ordered tomorrow a.m. 5. DVT prophylaxis, high risk?heparin 5000 subcutaneous every 12 hourly. Bilateral SCDs. Patient also high risk of bleeding due to CKD stage IV 6. Chronic kidney disease stage IV: Baseline creatinine clearance about 20- 25 mL/min. Creatinine around 2.3. UA benign., No significant proteinuria. CT abdomen with IV contrast on 04/01 without any hydronephrosis. Bilateral renal atrophy. Bladder unremarkable composite assembler consulted. Consult reviewed and appreciated 7. CODE STATUS?full code verified Charges/Coding Visit Charges Inpatient E&M: 46458 Subs Hosp L2 04/05/25 1350 <Electronically signed by Jaden Cedillo MD> Cosigner Signature (if applicable): CC: ~ Signed [facility] Work Phone: [phone] 141-519309-16-2025 Consult note Author Bushra Woodall [facility] Note Date/Time April 05, 2025 12:10pm [facility] Medical Records Department [address] [place] [address] Consultation - Nephrology 04/05/25 1208 MR#: [id number] Acct: [id number] Name: MEGAN NASCIMENTO Rep #:[id number] : 1940 84 From: Bushra lock MD PCP: Dr. Rigoberto Durand MD Status:ADM I N Location: [place] [address] Assessment & Plan Assessment/Plan (1) CKD (chronic kidney disease), stage IV: PLAN: Reviewed prior records, his creatinine has fluctuated between 2.1-2.3 overthe last several months. Urine analysis was fairly [...] CKD, CHF. He has no history of congestiveheart failure with low ejection fraction. Imaging consistent with pulmonary edema. [facility] Medical History (Updated 04/05/25 @ 12:09 by [...] 04/10 Unknown History tablet,extended release 24 hr nzkxqgzaovjp-uaa-xydif acid-vit 1 tab PO DAILY not on [...] oriented x 3 no obvious distress no pallor no icterus no JVD s1s2 no murmurs lungs clear abdomen soft no organomegaly ++ edema Lab / Micro Data 04/05/25 06:07 04/05/25 06:07 Labs: Laboratory Results - last 24 hr 04/05/25 00:25: WBC 6.0, RBC 5.46, Hgb 16.2, Hct 46.9, MCV 85.9, MCH 29.7, MCHC 34.5, RDW Std Deviation 60.8 H, RDW Coeff of Anuradha 20.6 H, Plt Count 194, MPV 11.2, Immature Gran % (Auto) 0.500, Neut % (Auto) 70.4 H, Lymph % (Auto) 14.4 L,[place] % (Auto) 11.2 H, Eos % (Auto) [...] 449 H, [place] > [address]76 H, TSH 13.700 H 04/05/25 06:07: WBC 5.8, RBC 5.34, Hgb 15.5, Hct 46.3, MCV 86.7, MCH 29.0, MCHC 33.5, RDW Std Deviation 62.0 H, RDW Coeff of Anuradha 20.6 H, Plt Count 159, MPV 10.6, Immature Gran % (Auto) 0.300, Neut % (Auto) 62.1, Lymph % (Auto) 21.0, [place] % (Auto) 13.6 H, Eos % (Auto) 1.4, Baso % (Auto) 1.6 H, Absolute Neuts (auto) 3.6, Absolute Lymphs (auto) 1.22, Nucleated RBC % 0, Sodium 139, Potassium 3.9, Chloride 103, Carbon Dioxide 17.4 L, Anion Gap 19 H, BUN 36 H, Creatinine 2.36 H, Estim Creat Clear Calc 23.64 L, Est GFR (MDRD) Non-Af 26 L, BUN/Creatinine Ratio 15.1, Glucose 86, Calcium 9.3, Total Bilirubin 2.01 H, Direct Bilirubin 1.03 H, AST 54 H, ALT 15, Alkaline Phosphatase 118, Total Creatine Kinase 491 H, Total Protein 6.3, Albumin 3.4, Globulin 2.9 04/05/25 06:59: POC Glucose 91 Imaging Radiology Impression Chest X-Ray 04/05/25 00:36 IMPRESSION: Moderate bilateral pleural effusions. Passive atelectatic airspace disease of the lower lobes. Moderate central pulmonary venous congestion. Moderate interstitial pulmonary congestion. AICD is in good position. Enlarged cardiac silhouette. Reading Location: [place] [address] Echocardiogram 04/05/25 05:55 Interpretation Summary Severe global LV systolic dysfunction. Estimated LVEF 10%. Stage I diastolic dysfunction. There is severe biatrial dilatation. Mild (1+) mitral valve insufficiency. Severe (4+) tricuspid valve insufficiency. Mildly calcified aortic valve. Mild aortic valve stenosis. Mild aortic valve regurgitation. Mildly dilated aortic root. Moderate left pleural effusion. Ordering Physician: Rigoberto Durand Referring Physician: Rigoberto Brandt Performed By: Julia Cordova RDCS, RVT 04/05/25 1210 <Electronically signed by Bushra Woodall MD> Cosigner Signature (if applicable): CC: Dr. Rigoberto Durand MD~ Signed [facility] Work Phone: [phone] Progress note [facility] Medical Records Department [address] [place] [address] Progress Note - Hospitalist 04/05/25 0733 MR#: [id number] Acct: [id number] Name: MEGAN NASCIMENTO Rep #:[id number] : 1940 84 From: Jaden Griggs PCP: Dr. Rigoberto Durand MD Status:ADM I N Location: [place] [address] Reason for Visit Chief Complaint: Fall/generalized weakness Objective Data Objective Data Vital Signs: Vital Signs Temp Pulse Resp BP Pulse Ox O2 Del Method 97.5 F L 60 16 111/67 98 Room Air 04/05/25 03:40 04/05/25 04:50 04/05/25 03:40 04/05/25 03:40 04/05/25 05:00 04/05/25 05:00 Oxygen Delivery Method Room Air Weight: 183 lb 13.848 oz Body Mass Index (BMI) 28.8 Intake & Output: Intake and Output for Last 24 Hours 04/03/25 04/04/25 04/05/25 23:59 23:59 23:59 Intake Total 120 / 120 Balance 120 / 120 Lab / Micro Data 04/05/25 06:07 04/05/25 06:07 Labs: Laboratory Results - last 24 hr 04/05/25 00:25: WBC 6.0, RBC 5.46, Hgb 16.2, Hct 46.9, MCV 85.9, MCH 29.7, MCHC 34.5, RDW Std Deviation 60.8 H, RDW Coeff of Anuradha 20.6 H, Plt Count 194, MPV 11.2, Immature Gran % (Auto) 0.500, Neut % (Auto) 70.4 H, Lymph % (Auto) 14.4 L,[place] % (Auto) 11.2 H, Eos % (Auto) 2.2, Baso % (Auto) 1.3 H, Absolute Neuts (auto) 4.2, Absolute Lymphs (auto) 0.86, Nucleated RBC % 0, Differential CommentSCANNED, Plt Morphology Comment LARGE, Anisocytosis 1+, Ovalocytes RARE, Sodium 141, Potassium 3.7, Chloride 103, Carbon Dioxide 19.6 L, Anion Gap 18 H,BUN 36 H, Creatinine2.38 H, Estim Creat Clear Calc 23.30 L, Est GFR (MDRD) Non-Af 26 L, BUN/Creatinine Ratio 15.0, Glucose 75, Calcium 9.4, Magnesium 2.0, Total Creatine Kinase 449 H, [place] > [address] H, TSH 13.700 H 04/05/25 06:59: POC Glucose 91 Radiography Diagnostic Testing: Radiology Impression Chest X-Ray 04/05/25 00:36 IMPRESSION: Moderate bilateral pleural effusions. Passive atelectatic airspace disease of the lower lobes. Moderate central pulmonary venous congestion. Moderate interstitial pulmonary congestion. AICD is in good position. Enlarged cardiac silhouette. Reading Location: [place] [address] Physical Exam Narrative Seen and examined Patient is getting edematous and dyspnea on exertion for 1-1/2 weeks. Denies chest pain. Physical exam General: Alert, Oriented x3, Cooperative. BMI 28.8 kg/m? HEENT: Atraumatic, PERRLA, EOMI, Normocephalic. Oral: Oral mucosa dry. No Gingival or Mucosal Lesions/ Ulcerations Neck: Supple, No JVD, Negative Carotid Bruits Chest wall/Lungs: Air entry diminished in bilateral lung bases. Bilateral finecrepitations Cardiovascular: systolic murmur. Paced rhythm. AICD present. Abdomen: Bowel Sounds Present, Soft, Non Tender, Non-Distended. No ascites : No dysuria. No renal angle tenderness. No suprapubic tenderness. Extremities: 3+ pedal edema. Capillary Refill Less than 3 Seconds Skin: No rashes, No breakdown Musculoskeletal: No Tenderness to Palpation of Joints or Extremities Neurological: Cranial nerves II-XII grossly intact, DTR 2+/4. No acute focal neurological deficit. Psych/Mental Status: Flat affect Assessment & Plan Assessment/Plan (1) Fall: (2) Rhabdomyolysis: (3) Generalized weakness: (4) Congestive heart failure: (5) Diabetes: PLAN: Plan 84-year-old gentleman was admitted with generalized weakness, slid down from rollator to the floor while using bathroom. Denies hitting head or LOC. Patient has a long laying on the floor for approximately more than 5 hours. Inability to take care of himself. 1. Generalized weakness with gentle fall at home?patient is being admitted in PCU. PT and OT. Probably, patient fell due to CHF exacerbation feeling weak and dyspnea on exertion consult case management for discharge planning. 2. Acute on chronic HFrEF:. BNP very high. Chest x-ray individually reviewed shows moderate bilateral effusion with bibasilar atelectasis. Central pulmonarycongestion and interstitial congestion. Change furosemide 40 mg p.o. twice daily to IV. Heart failure core measures including intake and output, fluid restriction less than 1500 mL, daily weight monitoring, kidney and electrolytes monitoring. 3. Diabetes mellitus type 2: Discontinue Amaryl. Serum glucose is in 80s. Continue routine insulin therapy, 4. Hypothyroidism: TSH is elevated 13.7. Levothyroxine dose increased to 100 mcg daily. Free T4 thyroxine ordered tomorrow a.m. 5. DVT prophylaxis, high risk?heparin 5000 subcutaneous every 12 hourly. Bilateral SCDs. Patient also high risk of bleeding due to CKD stage IV 6. Chronic kidney disease stage IV: Baseline creatinine clearance about 20- 25 mL/min. Creatinine around 2.3. UA benign., No significant proteinuria. CT abdomen with IV contrast on 04/01 without any hydronephrosis. Bilateral renal atrophy. Bladder unremarkable composite assembler consulted. Consult reviewed and appreciated 7. CODE STATUS?full code verified Charges/Coding Visit Charges Inpatient E&M: 02454 Subs Hosp L2 04/05/25 4299 Cosigner Signature (if applicable): CC: ~ Signed [facility]09-16-2025 Consult note [facility] Medical Records Department [address] [place] [address] Consultation - Nephrology 04/05/25 1208 MR#: [id number] Acct: [id number] Name: MEGAN NASCIMENTO Rep #:[id number] : 1940 84 From: Bushra lock MD PCP: Dr. Rigoberto Durand MD Status:ADM I N Location: [place] [address] Assessment & Plan Assessment/Plan (1) CKD (chronic kidney disease), stage IV: PLAN: Reviewed prior records, his creatinine has fluctuated between 2.1-2.3 overthe last several months. Urine analysis was fairly [...] CKD, CHF. He has no history of congestiveheart failure with low ejection fraction. Imaging consistent with pulmonary edema. [facility] Medical History (Updated 04/05/25 @ 12:09 by [...] 04/10 Unknown History tablet,extended release 24 hr uvlxmzmyfxjv-qgf-hzpzd acid-vit 1 tab PO DAILY not on [...] oriented x 3 no obvious distress no pallor no icterus no JVD s1s2 no murmurs lungs clear abdomen soft no organomegaly ++ edema Lab / Micro Data 04/05/25 06:07 04/05/25 06:07 Labs: Laboratory Results - last 24 hr 04/05/25 00:25: WBC 6.0, RBC 5.46, Hgb 16.2, Hct 46.9, MCV 85.9, MCH 29.7, MCHC 34.5, RDW Std Deviation 60.8 H, RDW Coeff of Anuradha 20.6 H, Plt Count 194, MPV 11.2, Immature Gran % (Auto) 0.500, Neut % (Auto) 70.4 H, Lymph % (Auto) 14.4 L,[place] % (Auto) 11.2 H, Eos % (Auto) [...] Clear Calc 23.30 L, Est GFR (MDRD) Non- Af 26 L, BUN/Creatinine Ratio 15.0, Glucose 75, Calcium 9.4, Magnesium 2.0, Total Creatine Kinase 449 H, [place] II > [address]96 H, TSH 13.700 H 04/05/25 06:07: WBC 5.8, RBC 5.34, Hgb 15.5, Hct 46.3, MCV 86.7, MCH 29.0, MCHC 33.5, RDW Std Deviation 62.0 H, RDW Coeff of Anuradha 20.6 H, Plt Count 159, MPV 10.6, Immature Gran % (Auto) 0.300, Neut % (Auto) 62.1, Lymph % (Auto) 21.0, [place] % (Auto) 13.6 H, Eos % (Auto) 1.4, Baso % (Auto) 1.6 H, Absolute Neuts (auto) 3.6, Absolute Lymphs (auto) 1.22, Nucleated RBC % 0, Sodium 139, Potassium 3.9, Chloride 103, Carbon Dioxide 17.4 L, Anion Gap 19 H, BUN 36 H, Creatinine 2.36 H, Estim Creat Clear Calc 23.64 L, Est GFR (MDRD) Non-Af 26 L, BUN/Creatinine Ratio 15.1, Glucose 86, Calcium 9.3, Total Bilirubin 2.01 H, Direct Bilirubin 1.03 H, AST 54 H, ALT 15, Alkaline Phosphatase 118, Total Creatine Kinase 491 H, Total Protein 6.3, Albumin 3.4, Globulin 2.9 04/05/25 06:59: POC Glucose 91 Imaging Radiology Impression Chest X-Ray 04/05/25 00:36 IMPRESSION: Moderate bilateral pleural effusions. Passive atelectatic airspace disease of the lower lobes. Moderate central pulmonary venous congestion. Moderate interstitial pulmonary congestion. AICD is in good position. Enlarged cardiac silhouette. [facility] E[facility] 04/05/25 05:55 Interpretation Summary Severe global LV systolic dysfunction. [...] Performed By: Julia Cordova, RDCS, RVT 04/05/25 1210 Cosigner Signature (if applicable): CC: Dr. Rigoberto Durand MD~ Signed [facility]09-16-2025 Evaluation note* Diagnosis Onset Date Resolution Status Admit Date Congestive heart failure acute April 05, 2025 2:38am Diabetes acute March 2:38am Generalized weakness acute Mar 2:38am Rhabdomyolysis acute April 05, 2025 2:38am CKD (chronic kidney disease) , stage IV inactive April 05, 2025 2:38am Fall inactive March 2:38am Acute kidney injury acute 2024 4:05pm BPH (benign prostatic hyperplasia) acute April 07, 2025 4:05pm Debility acute March 4:05pm Diabetic polyneuropathy acute S eptemb2024 4:05pm Essential (primary) hypertension acute April 07, 2025 4:05pm Hypothyroidism acute April 07, 2025 4:05pm Iron deficiency anemia acute Se ptember 2024 4:05pm Rhabdomyolysis acute April 07, 2025 4:05pm Type 2 diabetes mellitus wit h hyperglycemia acute April 07, 2025 4:05pm Acid reflux chronic March 4:05pm Acute on chronic HFrEF (hear t failure with reduced ejection fraction) chronic April 07, 2025 4:05pm [facility] Work Phone: 1(234) 532-981909-16-2025 Evaluation note* Diagnosis Onset Date Resolution Status Admit Date Congestive heart failure acute April 05, 2025 2:38am Diabetes acute March 2:38am Generalized weakness acute Mar 2:38am Rhabdomyolysis resolved April 05, 2025 2:38am CKD (chronic kidney disease) , stage IV inactive April 05, 2025 2:38am Fall inactive March 2:38am BPH (benign prostatic hyperplasia) acute April 07, 2025 4:05pm Debility acute March 4:05pm Diabetic polyneuropathy acute S ep2024 4:05pm Essential (primary) hypertension acute April 07, 2025 4:05pm Hypothyroidism acute April 07, 2025 4:05pm Iron deficiency anemia acute Se ptember 2024 4:05pm Type 2 diabetes mellitus wit h hyperglycemia acute April 07, 2025 4:05pm Acid reflux chronic March 4:05pm Acute kidney injury resolved 2024 4:05pm Acute on chronic HFrEF (hear t failure with reduced ejection fraction) resolved April 07, 2025 4:05pm Rhabdomyolysis resolved April 07, 2025 4:05pm [facility] Work Phone: 1(144) 688-822409-16-2025 History and physical note Author Rigoberto Durand [facility] Note Date/Time April 05, 2025 2:38am [facility] Medical Records Department [address] [place] [address] History & Physical Exam 04/05/25 0229 MR#: [id number] Acct: [id number] Name: MEGAN NASCIMENTO Rep #:[id number] : [...] in rehab facility for strength and rehab. [facility] Medical History (Updated 04/05/25 @ 02:35 by [...] 04/10 Unknown History tablet,extended release 24 hr fnnelcqeoezl-ymi-lbjpk acid-vit 1 tab PO DAILY not on [...] (Auto) 70.4 H, Lymph % (Auto) 14.4 L,[place] % (Auto) 11.2 H, Eos % (Auto) [...] 449 H, [place] > [address]862 H, TSH 13.700 H Imaging Radiology Impression Chest X-Ray 04/05/25 00:36 IMPRESSION: Moderate bilateral pleural effusions. Passive atelectatic airspace disease of the lower lobes. Moderate central pulmonary venous congestion. Moderate interstitial pulmonary congestion. AICD is in good position. Enlarged cardiac silhouette. Reading Location: [place] [address] Assessment & Plan Assessment/Plan (1) Fall: (2) [...] code verified Charges/Coding Visit Charges Inpatient E&M: 26992 Init Hosp L2 04/05/25 0238 <Electronically signed by Rigoberto Durand MD> Cosigner Signature (if applicable): CC: Dr. Rigoberto Durand MD~ Signed [facility] Work Phone: 1(536) 339-311509-16-2025 Discharge summary Author Shaun Taveras [facility] Note Date/Time April 05, 2025 2:31am [facility] Medical Records Department [address] [place] [address] Emergency Department Summary 04/05/25 MR#: [id number] Acct: [id number] Name: MEGAN NASCIMENTO Rep #:[id number] : [...] downtime he was brought in for evaluation [facility] Medical History Chronic pain of toe of [...] 04/10 Unknown History tablet,extended release 24 hr vwycjnqbkxhb-jbd-jcpft acid-vit 1 tab PO DAILY not on [...] that his safest option will be admission [facility] for continued monitoring as well as PT/OT evaluation with potentialplacement in rehab or care home. The family states the patient was in a rehab center roughly a year ago and did well. The patient states that he would prefer a rehab placement based on his progressive/recurrent weakness. Secondaryto his I contacted the hospitalist who agrees to accept the patient for continued treatment and care with potential care home/rehab placement regarding his weakness and inability to [...] 70.4 H Lymph % (Auto) 14.4 L [place] % (Auto) 11.2 H Eos % (Auto) [...] 449 H [place] BNP II > 26095 H TSH 13.700 H Radiography Diagnostic Testing: Clinical Impression(s) from Imaging Studies Chest X-Ray 04/05/25 00:36 IMPRESSION: Moderate bilateral pleural effusions. Passive atelectatic airspace disease of the lower lobes. Moderate central pulmonary venous congestion. Moderate interstitial pulmonary congestion. AICD is in good position. Enlarged cardiac silhouette. Reading Location: [place] [address] Chest x-ray as interpreted by the emergency [...] MD [Primary Care Provider] - Print Language: [place] Disposition Disposition: Acute Care Hospital [facility] What to do if you have Problems For any increased pain, shortness of breath, bleeding, nausea or vomiting, chestpain, or any unexpected problems, contact your Primary Care Provider. Call [facility] ([phone]) or report to the closest Emergency Room. Call 911 if necessary. 04/05/25 0231 <Electronically signed by Shaun Taveras DO> Cosigner Signature (if applicable): CC: Dr. 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 He willbe admitted for generalized weakness, CHF and likely will need placement in rehab facility for strength and rehab. [facility] Medical History (Updated 04/05/25 @ 02:35 by [...] 04/10 Unknown History tablet,extended release 24 hr trnercfohcqk-ceo-aectd acid-vit 1 tab PO DAILY not on [...] (Auto) 70.4 H, Lymph % (Auto) 14.4 L,Solano % (Auto) 11.2 H, Eos % (Auto) [...] Clear Calc 23.30 L, Est GFR (MDRD) Non- Af 26 L, BUN/Creatinine Ratio 15.0, Glucose 75, Calcium 9.4, Magnesium 2.0, Total Creatine Kinase 449 H, [place] BNP II > 59513 H, TSH 13.700 H Imaging Radiology Impression Chest X-Ray 04/05/25 00:36 IMPRESSION: Moderate bilateral pleural effusions. Passive atelectatic airspace disease of the lower lobes. Moderate central pulmonary venous congestion. Moderate interstitial pulmonary congestion. AICD is in good position. Enlarged cardiac silhouette. Reading Location: [place] [address] Assessment & Plan Assessment/Plan (1) Fall: (2) [...] code verified Charges/Coding Visit Charges Inpatient E&M: 74660 Init Hosp L2 04/05/25 0238 Cosigner Signature (if applicable): CC: Dr. Rigoberto Durand MD~ Signed [facility]09-16-2025 Discharge summary [facility] Medical Records Department [address] [place] [address] Emergency Department Summary 04/05/25 MR#: [id number] Acct: [id number] Name: MEGAN NASCIMENTO Rep #:[id number] : [...] at home alone. He states that today hefell like he had to use the restroom [...] downtime he was brought in for evaluation [facility] Medical History Chronic pain of toe of [...] 04/10 Unknown History tablet,extended release 24 hr yslaicpbfeqv-ate-fwgrg acid-vit 1 tab PO DAILY not on [...] x 325 mg) PO Q6H PRN PRN 05/14/24 Unknown Rx Pain 1-10 Or Fever >100.7 [...] hypoactive bowel sounds. No voluntary guarding or rigidityor pulsatile mass. Auscultation: hypoactive bowel sounds Palpation: [...] which could be contributing to his swelling andweakness but there is no alteration to his mental status and the value does not correlate with myxedema coma. The chest x-ray shows bilateral pleural effusions but based on patient's history and chart review this is most likely chronic in nature and as he is not in respiratory distress or hypoxic th ere is no need for BiPAP. At this time the patient is tooweak to ambulate. He may need gentle fluidhydration based on his rhabdomyolysis and with his chronic kidney disease and congestive heart failure hewould need to be monitored and to in order ensure he does not go into volume overload. Moreover as he is too weak to ambulate and he lives alone he is not able to care for himself. I do feel that his safest option will be admission [facility] for continued monitoring as well as PT/OT evaluation with potentialplacement in rehab or care home. The family states the patient was in a rehabcenter roughly a year ago and did well. The patient states that he would prefer a rehab placement based on his progressive/recurrent weakness. Secondaryto his I contacted the hospitalist who agrees to accept the patient for continued treatment and care with potential care home/rehab placement regarding his weakness and inability to [...] 70.4 H Lymph % (Auto) 14.4 L Solano % (Auto) 11.2 H Eos % (Auto) [...] 449 H NT pro BNP II > 64006 H TSH 13.700 H Radiography Diagnostic Testing: Clinical Impression(s) from Imaging Studies Chest X-Ray 04/05/25 00:36 IMPRESSION: Moderate bilateral pleural effusions. Passive atelectatic airspace disease of the lower lobes. Moderate central pulmonary venous congestion. Moderate interstitial pulmonary congestion. AICD is in good position. Enlarged cardiac silhouette. Reading Location: [place] [address] Chest x-ray as interpreted by the emergency [...] MD [Primary Care Provider] - Print Language: Ukrainian Disposition Disposition: Acute Care Hospital [facility] What to do if you have Problems For any increased pain, shortness of breath, bleeding, nausea or vomiting, chestpain, or any unexpected problems, contact your Primary Care Provider. Call [facility] ([phone]) or report tothe closest Emergency Room. Call 911 if necessary. 04/05/25 0231 Cosigner Signature (if applicable): CC: Dr. Rigoberto Durand MD ~ Signed [facility]09-16-2025 [facility]09-16-2025 Radiology Diagnostic study note [facility] Imaging Services [address] [place] [address] Chest 1 View (Portable) MR#: [id number] Acct: [id number] Name: MEGAN NASCIMENTO Rep #: [id number] : 1940 M 84 From: Oswaldo Lu MD PCP: Dr. Rigoberto Durand MD Status: REG E R Study:Chest 1 View (Portable) Date of Exam: 04/05/25 Exam# [id number] Ordering Dr: Emily Taveras DO PROCEDURE: CHEST [...] good position. Enlarged cardiac silhouette. Reading [facility] [address] CC: Dr. Rigoberto Durand MD; Shaun Taveras DO ~ Tobacco Grower: Signed [facility]09-12-2025 Discharge summary [facility] Medical Records Department [address] [place] [address] Emergency Department Summary 04/01/25 MR#: [id number] Acct: [id number] Name: MEGAN NASCIMENTO Rep #:[id number] : [...] he was taking his morning medication and hedropped oneof the pills and bent over to [...] simply lost his balance while trying to pepper picker a pill. He states that over the last month he has had approximately 4 falls and states that ever since he had been diagnosed with diverticulitis. He does live alone. [facility] Medical History Chronic pain of toe of [...] 04/10 Unknown History tablet,extended release 24 hr jfmnodgbxdnm-vyt-edxho acid-vit 1 tab PO DAILY not on [...] hematomas noted bilaterally, no raccoon eyes no Stafford sign Neck: Soft, supple, trachea midline, no [...] following commands and that he was at [facility] is 2024 Skin: Warm, dry, [...] fracture, pneumothorax, head laceration. Once workup is obtai nedreviewed he will be reevaluated. Patient states that [...] findings noted. Patient CT cervical spine showed multileveldisc space narrowing degeneration with multilevel neuroforaminal stenosis and facet joint osteoarthritis. Patient CT chest abdomen pelvis with IV contrast reviewed and showed bilateral pleural effusions right greater than the left with basilar atelectasis. Ascites noted. Stable bilateral renal cystmore prominent in the left side fatty infiltration [...] (Auto) 66.1 Lymph % (Auto) 18.1 L Solano % (Auto) 10.6 H Eos % (Auto) [...] CHRONIC CHANGES. NO ACUTE FINDINGS. Reading Location: [facility] Cervical Spine CT 04/01/25 12:45 IMPRESSION: Multilevel disc space narrowing and degeneration with the multilevel neural foraminal stenosis and facet joint osteoarthritis. Reading Location: [id number] Chest/Abdomen/Pelvis CT 04/01/25 12:45 IMPRESSION: Bilateral pleural effusions right greater than left with bibasilar atelectasis. Ascites. Stable bilateral renal cysts more prominent on the left side. Fatty infiltration of the liver. Sigmoid diverticulosis. Reading Location: [facility] Discharge Plan Triage Chief Complaint: Fall ED Provider: Dax Romero Dx/Rx/DC Orders Clinical Impression: Congestive heart failure, Chronic kidney disease, Closed head injury without loss of consciousness,Laceration of head, Fall Prescriptions: No Action sucralfate [...] printed off for your records. Print Language: Ukrainian Disposition Disposition: Home, Self Care What to do if you have Problems For any increased pain, shortness of breath, bleeding, nausea or vomiting, chestpain, or any unexpected problems, contact your Primary Care Provider. Call [facility] ([phone]) or report tothe closest Emergency Room. Call 911 if necessary. 04/01/25 1554 Cosigner Signature (if applicable): CC: Dr. Rigoberto Durand MD ~ Signed [facility]09-12-2025 Radiology Diagnostic study note [facility] Imaging Services [address] [place], [place] [address] CT Chest, Abd, Pel w/Contrast MR#: [id number] Acct: [id number] Name: MEGAN NASCIMENTO Rep #: [id number] : 1940 M 84 From: Can Gerber MD PCP: Dr. Rigoberto Durand MD Status: REG E R Study:CT Chest, Abd, Pel w/Contrast Date of E xam: 04/01/25 Exam# [id number] Ordering Dr: Larissa Romero DO PROCEDURE: CT [...] and Vasculature: Coronary artery calcification. Cardiomegaly. A dual- chamber pacemaker is seen. Lungs and Airways: Bilateral [...] of the liver. Sigmoid diverticulosis. Reading Location: [id number] CC: Dr. Rigoberto Durand MD; Dr. Dax Romero DO ~ Tobacco Grower: Signed [facility]09-12-2025 Discharge summary Author Dax Romero [facility] Note Date/Time April 01, 2025 3:55pm [facility] Medical Records Department [address] [place] [address] Emergency Department Summary 04/01/25 MR#: [id number] Acct: [id number] Name: MEGAN NASCIMENTO Rep #:[id number] : [...] simply lost his balance while trying to pepper picker a pill. He states that over the last month he has had approximately 4 falls and states that ever since he had been diagnosed with diverticulitis. He does live alone. [facility] Medical History Chronic pain of toe of [...] 04/10 Unknown History tablet,extended release 24 hr kizgacciirvk-uai-oaged acid-vit 1 tab PO DAILY not on [...] hematomas noted bilaterally, no raccoon eyes no Stafford sign Neck: Soft, supple, trachea midline, no [...] following commands and that [facility] Skin: Warm, dry, see head [...] (Auto) 66.1 Lymph % (Auto) 18.1 L Solano % (Auto) 10.6 H Eos % (Auto) [...] CHRONIC CHANGES. NO ACUTE FINDINGS. Reading Location: [id number] Cervical Spine CT 04/01/25 12:45 IMPRESSION: Multilevel disc space narrowing and degeneration with the multilevel neural foraminal stenosis and facet joint osteoarthritis. Reading Location: [facility] Chest/Abdomen/Pelvis CT 04/01/25 12:45 IMPRESSION: Bilateral pleural effusions right greater than left with bibasilar atelectasis. Ascites. Stable bilateral renal cysts more prominent on the left side. Fatty infiltration of the liver. Sigmoid diverticulosis. Reading Location: [facility] Discharge Plan Triage Chief Complaint: Fall ED [...] printed off for your records. Print Language: Ukrainian Disposition Disposition: Home, Self Care What to do if you have Problems For any increased pain, shortness of breath, bleeding, nausea or vomiting, chestpain, or any unexpected problems, contact your Primary Care Provider. Call [facility] ([phone]) or report to the closest Emergency Room. Call 911 if necessary. 04/01/25 6082 <Electronically signed by Dax Romero DO> Cosigner Signature (if applicable): CC: Dr. Rigoberto Durand MD ~ Signed [facility] Work Phone: 1(536) 140-274809-12-2025 Radiology Diagnostic study note [facility] Imaging Services [address] [place] [address] Spine Cervical without Contras MR#: [id number] Acct: [id number] Name: MEGAN NASCIMENTO Rep #: [id number] : 1940 M 84 From: Can Gerber MD PCP: Dr. Rigoberto Durand MD Status: REG E R Study:Spine Cervical without Contras Date of Exam: 04/01/25 Exam# [id number] Ordering Dr: Larissa Romero DO PROCEDURE: SPINE [...] Durand MD; Dr. Dax Romero DO ~ Tobacco Grower: Signed [facility]09-12-2025 Radiology Diagnostic study note [facility] Imaging Services [address] [place] [address] Brain/Head without Contrast MR#: [id number] Acct: [id number] Name: MEGAN NASCIMENTO Rep #: [id number] : 1940 M 84 From: Cna Gerber MD PCP: Dr. Rigoberto Durand MD Status: REG E R Study:Brain/Head without Contrast Date of Exa m: 04/01/25 Exam# [id number] Ordering Dr: Larissa Romero DO PROCEDURE: BRAIN/HEAD [...] Durand MD; Dr. Dax Romero DO ~ Tobacco Grower: Signed [facility]09-01-2025 Evaluation note* Diagnosis Onset Date Resolution Status Admit Date Congestive heart failure acute April 05, 2025 2:38am Diabetes acute March 2:38am Fall acute March 2:38am Generalized weakness acute Sept emb2024 2:38am Rhabdomyolysis acute April 05, 2025 2:38am [facility] Work Phone: 1(982) 134-212008-20-2025 Note03/09/25 CHW Transitions Outreach in regards to [...] were you homeless or living in a usp (including now)? N Transportation Needs In the [...] than 3 How often do you attend holiness or christianity services? Pt Declined Do you belong to any clubs or organizations such as holiness groups, unions, fraternal or athletic groups, or [...] In the past 12 months has the [employer] oil, or water [employer] threatened to shut off services in your home? No Health Literacy How often do you need to have someone help you when you read instructions, pamphlets, or other written material from your doctor or pharmacy? Patient declines to respond --- -Feeling very good. -[facility] PT/OT was supposed to be out a day or so ago but hasn't come. -Weight is good, down to 177 lb. Reports on leg swelling or SOB. -Aware of upcoming [facility] appointments. -Taking all medications as prescribed. -Does not need any financial, transportation, or food assistance, he's doing just fine. -Community health worker assistance is not needed at this time. Transitions Follow-up: -CHW avail for follow up calls. -RN continue to follow. -#3 transition outreach call complete. [facility] upcoming appointments: -05/04 Cardiology -06/03 Cardiology JANKI Tian [phone]08-14-2025 History of Present illness Narrative* Petra Renteria APRN - MACHINE HAND - 03/03/2025 2:30 PM EDT Images from the original note were not included. [facility] Cardiology Office Note DATE of SERVICE: [...] defibrillator placement. He was recently admitted to [facility] 01/28/2025-02/01/2025 and treated for heart [...] for: VLDL Lab Results Component Value Date CHOLMESFIN 5 05/14/2021 Other Testing: Cardiac Tests: Echo [...] is important to call the office. 2. ORDER TRACER D-monitored regularly by the device clinic 3. [...] incontact with Megan once available. Petra Renteria LIFE INSURANCE AGENT/MACHINE HAND [1] Past Medical History: Diagnosis Date Acute [...] (HCC) Presence of cardiac resynchronization therapy defibrillator (ORDER TRACER-D) 01/17/2022 PUD (peptic ulcer disease) Pulmonary embolism [...] 200 tablet, Rfl: 1 documented in this [facility]08-13-2025 History of Present illness Narrative* Jany [...] to see (Everton Renteria CNP) tomorrow.) Was [facility] initiated if ordered? 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 Yes (Will route to WJamila, to complete SDOH and follow up with patient next week.) Spoke with patient. Re-introduced myself and my role on [facility]'s transitional team. He reports that the [...] was thrown off this morning since the [facility] nurse was out. He denies any [...] needs at this time. Will route to Jamila SHEARER, to complete transitional follow up call next week, as well as complete SDOH assessment. Future transitionaloutreach scheduled (Any s/s of CHF exacerbation? Has he seen his PCP yet? How are his legs looking?Any s/s of cellulitis?). documented in this encounterSumma [id number] History of Present illness Narrative* Jany Bonilla RN - 02/17/2025 1:44 PM EDT 02/17/25 1332 Transitions Post-Discharge Call - Initial Reviewed patients discharge instructions? 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 [...] HHC ordered? Yes If yes, which agency? [facility] Was HHC initiated if ordered? 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 To Be Determined At Next [...] that his PCP was listed incorrectly in [employer]. PCP updated in [employer]. Patient reports that he sees Dr. Bourne. [...] he see/schedule with cardiology/PCP?). documented in this [facility]07-29-2025 NoteStart PACC Note Home Health Referral Educated patient and son on Home Care and services available. Patient offered choice of available HHC and agreeable to SN, PT services with [facility] - Home Care. Care [...] is noted as yes - consider a CORPORATE AFFAIRS MANAGER evaluation once the patient returns home. START PATIENT REGISTRATION INFORMATION Order Information Order Signing Physician: Lisa Muniz, DO Service Ordered RN ?: Yes Service Ordered PT ?: Yes Service Ordered OT ?: No Service Ordered ST ?: No Service Ordered CORPORATE AFFAIRS MANAGER?:No Service Ordered JAR CAPPER?: No Following Physician: Dr Rigoberto Durand Following Physician Overseeing Physician: Dr Rigoberto Durand (Required for Residents only) Agreeable to Follow? Yes Date/Time of Call 02/15/25 4:05 PM, Spoke with: GONZALO Care Coordination Same Day SOC?: No Primary Care Physician: Dr Rigoberto Durand Primary Care Physician Primary Care Physician Address: [address] [place] [address] Visit Instructions: N/A Service Discharge Location Type: Home with Home Care Service Facility Name: N/A Service Floor Facility: N/A Service Room No: N/A Demographics Patient Last Name: Azam Patient First Name: Megan Language/Communication Barrier: NA Service Address: [address] [place] [address] [address] Service City: [place] Service ST: [place] Service ZIP: [address] Service (home) Other phone numbers: Telephone Information: Emergency Contact: Extended Emergency Contact Information Primary Emergency Contact: Zuleyka Nascimento Mobile Relation: Certification Officer Secondary Emergency Contact: Shaylee Nascimento Relation: Child Admission Information Admit Date: 02/10/2025 Patient status at discharge: Observation Admitting Diagnosis: Cellulitis [L03.90] Cellulitis of lower extremity, unspecified laterality [L03.119] Caregiver Information Caregiver First Name: Zuleyka Caregiver Last Name: Azam Caregiver Relationship to Patient CG Caregiver Caregiver Notes: N/A [employer] List No END PATIENT REGISTRATION INFORMATION Pt [...] GONZALO Discharge Date: 02/15/25 Referral Source-PACC: (Hospital/Unit): [facility] / [id number] B End PACC [facility]07-29-2025 Patient's home Note* Home Care - Maria Antonia Mcmullen RN - 02/15/2025 4:05 PM EDT Start PACC Note Home Health Referral Educated patient and son on Home Care and services available. Patient offered choice of available HHC and agreeable to SN, PT services with [facility] - Home Care. Care [...] is noted as yes - consider a CORPORATE AFFAIRS MANAGER evaluation once the patient returns home. START PATIENT REGISTRATION INFORMATION Order Information Order Signing Physician: Lisa Muniz, DO Service Ordered RN ?: Yes Service Ordered PT ?: Yes Service Ordered OT ?: No Service Ordered ST ?: No Service Ordered CORPORATE AFFAIRS MANAGER?:No Service Ordered JAR CAPPER?: No Following Physician: Dr Rigoberto Durand Following Physician Overseeing Physician: Dr Rigoberto Durand (Required for Residents only) Agreeable to Follow? Yes Date/Time of Call 02/15/25 4:05 PM, Spoke with: GONZALO Care Coordination Same Day SOC?: No Primary Care Physician: Dr Rigoberto Durand Primary Care Physician Primary Care Physician Address: [address] [place] [address] Visit Instructions: N/A Service Discharge Location Type: Home with Home Care Service Facility Name: N/A Service Floor Facility: N/A Service Room No: N/A Demographics Patient Last Name: Azam Patient First Name: Megan Language/Communication Barrier: NA Service Address: [address] [place] [address] Apt Service City: [place] Service ST: [place] Service ZIP: [address] Service (home) Other phone numbers: Telephone Information: Emergency Contact: Extended Emergency Contact Information Primary Emergency Contact: AzamZuleyka Mobile Relation: Certification Officer Secondary Emergency Contact: AzamShaylee Relation: Child Admission Information Admit Date: 02/10/2025 Patient status at discharge: Observation Admitting Diagnosis: Cellulitis [L03.90] Cellulitis of lower extremity, unspecified laterality [L03.119] Caregiver Information Caregiver First Name: Zuleyka Caregiver Last Name: Azam Caregiver Relationship to Patient CG Caregiver Caregiver Notes: N/A [employer] List No END PATIENT REGISTRATION INFORMATION Pt [...] GONZALO Discharge Date: 02/15/25 Referral Source-PACC: (Hospital/Unit): [facility] / [id number] B End PACC Note [id number] Miscellaneous Notes* Home Care - Maria Antonia Mcmullen RN - 02/15/2025 4:05 PM EDT Start PACC Note Home Health Referral Educated patient and son on Home Care and services available. Patient offered choice of available HHC and agreeable to SN, PT services with [facility] - Home Care. Care Types: [...] is noted as yes - consider a CORPORATE AFFAIRS MANAGER evaluation once the patient returns home. START PATIENT REGISTRATION INFORMATION Order Information Order Signing Physician: Lisa Muniz, DO Service Ordered RN ?: Yes Service Ordered PT ?: Yes Service Ordered OT ?: No Service Ordered ST ?: No Service Ordered CORPORATE AFFAIRS MANAGER?:No Service Ordered JAR CAPPER?: No Following Physician: Dr Rigoberto Durand Following Physician Overseeing Physician: Dr Rigoberto Durand (Required for Residents only) Agreeable to Follow? Yes Date/Time of Call 02/15/25 4:05 PM, Spoke with: GONZALO Care Coordination Same Day SOC?: No Primary Care Physician: Dr Rigoberto Durand Primary Care Physician Primary Care Physician Address: [address] [place] [address] Visit Instructions: N/A Service Discharge Location Type: Home with Home Care Service Facility Name: N/A Service Floor Facility: N/A Service Room No: N/A Demographics Patient Last Name: Azam Patient First Name: Megan Language/Communication Barrier: NA Service Address: [address] [place] [address] [address] Service City: [place] Service ST: [place] Service ZIP: [address] Service (home) Other phone numbers: Telephone Information: Emergency Contact: Extended Emergency Contact Information Primary Emergency Contact: Zuleyka Nascimento Mobile Relation: Certification Officer Secondary Emergency Contact: Shaylee Nascimento Relation: Child Admission Information Admit Date: 02/10/2025 Patient status at discharge: Observation Admitting Diagnosis: Cellulitis [L03.90] Cellulitis of lower extremity, unspecified laterality [L03.119] Caregiver Information Caregiver First Name: Zuleyka Caregiver Last Name: Azam Caregiver Relationship to Patient CG Caregiver Caregiver Notes: N/A [employer] List No END PATIENT REGISTRATION INFORMATION Pt [...] GONZALO Discharge Date: 02/15/25 Referral Source-PACC: (Hospital/Unit): [facility] / [id number] B End PACC Note * Care Coordination - NATALYA Petersen - 02/14/2025 4:08 PM EDT SRIRAM met with pt at [facility] to complete the 30 day Readmission questionnaire. SW asked for pt's consent and pt agreed. Pt was cooperative and answered all questions. SRIRAM will email questionnaire at the end of the week to [email or web address] Direct * Care Coordination - Jewels Ortiz RN - 02/14/2025 2:16 PM EDT Care Management Progress Note Short Medical why still here: Patient remains on 4S today for BLE cellulitis. IV ATBX coverage continued. Complaints of continued lower extremity pain/erythema. Pain control prn. CHF, diuresis continued po. ID following. Monitoring labs/lytes. VSS, on RA. Planned Discharge Disposition: Home Health Services, active with [facility] through 04/04. Barriers/Today we still Wait: Clinical stability, Housefellow recommendations (ID), Symptomatic control Length of Stay [...] From home, possible need for therapy to [facility] for rehab medicine. [facility] to follow. Barriers/Today we still Wait: IV ATBX, ID final recs. Clinical stability. Length of Stay (Days): 1 GMLOS: No GMLOS Documented * Home Care - Maria Antonia Mcmullen RN - 02/11/2025 8:39 AM EDT Patient is currently active with [facility]. The patients current certification period will on 04/04/2025. The patient is currently receiving SN, PT services through the agency. [employer]ker to continue to follow. documented in this [facility]07-29-2025 Nurse Note* Micah Devries RN - 02/15/2025 3:25 PM EDT Pt ok to discharge home per MD, vs wnl. Pt understood discharge instructions. Son to transport pt home. IV removed prior to pt leaving hospital. Pt received meds to bed. [id number] Nurse Note* Micah Devries RN - 02/15/2025 [...] Back, Elbows, Occiput and ears all intact. Rosita and blanchable tissues noted to coccyx. Instructed [...] applied to both feet. documented in this [facility]07-29-2025 NoteHospitalist Discharge Summary Megan Nascimento : [...] Your Medications These medications were sent to [facility] [address] [place] [address] Hours: Friday to Friday 10 am to 6 pm amoxicillin-clavulanate 875-125 MG tablet Recommended Follow-up: PCP outpatient in 1-2 weeks. @[email or web address]@ Complexity of Follow up: [] Moderate Complexity: follow up within 7-14 calendar days (42819) [x] Severe Complexity: follow up within 7 calendar days (40215) Follow up Testing, Pending results or Referrals at Transitional Care Visit: [x] yes [] no Instructions to MA: Please call patient on day after discharge (must document patient contacted within 2 business days of discharge). Follow up questions for MA: 1. Did you get medications filled and taking them as instructed from discharge? 2. Are you following your d (more content not included)...[facility] [id number] Hospital course Narrative* Lisa Muniz DO - [...] Your Medications These medications were sent to [facility] [address] [place] [address] Hours: Friday to Friday 10 am to 6 pm amoxicillin-clavulanate 875-125 MG tablet Recommended Follow-up: PCP outpatient in 1-2 weeks. @[email or web address]@ Complexity of Follow up: [] Moderate Complexity: follow up within 7-14 calendar days (92102) [x] Severe Complexity: follow up within 7 calendar days (57769) Follow up Testing, Pending results or Referrals [...] frame. Signed: Lisa Muniz DO [facility] 02/15/2025, 2:51 PM Total time Spent on Discharge: 32 minutes documented in this [facility]07-28-2025 Progress note* Care Coordination - NATALYA Petersen - 02/14/2025 4:08 PM EDT SRIRAM met with pt at [facility] to complete the 30 day Readmission questionnaire. SW asked for pt's consent and pt agreed. Pt was cooperative and answered all questions. SRIRAM will email questionnaire at the end of the week to [email or web address] Direct [facility] [id number] NoteCare Management Progress Note Short Medical why still here: Patient remains on 4S today for BLE cellulitis. IV ATBX coverage continued. Complaints of continued lower extremity pain/erythema. Pain control prn. CHF, diuresis continued po. ID following. Monitoring labs/lytes. VSS, on RA. Planned Discharge Disposition: Home Health Services, active with [facility] through 04/04. Barriers/Today we still Wait: Clinical stability, Housefellow recommendations (ID), Symptomatic control Length of Stay (Days): 4 GMLOS: 3.1 [facility]07-28-2025 Progress note* Care Coordination - Jewels Ortiz [...] 04/04. Barriers/Today we still Wait: Clinical stability, Housefellow recommendations (ID), Symptomatic control Length of Stay (Days): 4 GMLOS: 3.[address] [id number] [facility] - Infectious Diseases Attending Progress Note Subjective: Alina cute events-a febrile and feels much improved, able to ambulat now and noted redness and pin >50 % better too. Mild diarrhea now. Objective: Vitals: Patient Vitals for the past 24 hrs: BP Temp Temp src Pulse Resp SpO2 02/14/25 0726 144/83 36.5 ?C (97.7 ?F) Temporal 82 [...] Lab Results Component Value Date/Time NA 141 02/14/2025 022 K 3.5 02/14/2025 022 CL 107 02/14/2025 022 CO2 21 (L) 02/14/2025 0220 CO2 25 01/09/2024 1206 BUN 22 02/14/2025 022 BUN 51 (H) 01/09/2024 1206 CREATININE 1.77 (H) 02/14/2025 022 CREATININE 2.34 (H) 01/09/2024 1206 GLUCOSE 96 02/14/2025 022 GLUCOSE 137 (H) 01/09/2024 1206 CALCIUM 8.9 02/14/2025219 CALCIUM 9.5 01/09/2024 1206 PROT 6.6 02/10/2025223 BILITOT 1.8 (H) 02/10/2025223 ALKPHOS 94 02/10/2025223 AST 39 (H) 02/10/2025223 ALT 10 02/10/2025223 PROCAL 0.08 (H) 02/12/2025 05 Lab Results Component Value Date/Time WBC 4.5 02/14/2025 022 WBC 9.4 01/09/2024 1206 HGB 15.3 02/14/2025 022 HGB 12.6 (L) 01/09/2024 1206 HCT 46.2 [...] Compression hose. Podiatry in outpt for nail care.[facility] [id number] History of Present illness Narrative* Mannie Samuel MD - 02/14/2025 11:[address] [facility] - Infectious Diseases Attending [...] Lab Results Component Value Date/Time NA 141 02/14/2025 0220 K 3.5 02/14/2025 0220 CL 107 02/14/2025 0220 CO2 21 (L) 02/14/2025 0220 CO2 25 01/09/2024 1206 BUN 22 02/14/2025 0220 BUN 51 (H) 01/09/2024 1206 CREATININE 1.77 (H) 02/14/2025 0220 CREATININE 2.34 (H) 01/09/2024 1206 GLUCOSE 96 02/14/2025 0220 GLUCOSE 137 (H) 01/09/2024 1206 CALCIUM 8.9 02/14/2025 0220 CALCIUM 9.5 01/09/2024 1206 PROT 6.6 02/10/2025 0224 BILITOT 1.8 (H) 02/10/2025223 ALKPHOS 94 02/10/20254 AST 39 (H) 02/10/2025223 ALT 10 02/10/2025223 [...] were not included. Hospitalist Progress Note 02/14/2025 [phone]: Please page me ([phone]) for patient care issues. [phone]: Please page [facility] night Hospitalist for any issues. Subjective: Admit Date: 02/10/2025 PCP: Gibson Roth (Inactive) Room#: B4454/B4454 B Interval History: Patient is sitting on the bed, lower extremity pain improving. Denies any chest pain shortness of breath or palpitations. Adult diet Regular; No Added Salt (3-4 gm); 5 carb choices (75 gm/meal) @[id number]@ 24HR INTAKE/OUTPUT: Intake/Output Summary (Last 24 hours) at 02/14/2025 1039 Last data filed at 02/14/2025 0500 Gross per 24 hour Intake 480 ml Output 1100 ml Net -620 ml Past Medical History: Medical History[1] LABS: CBC: Recent Labs 02/12/2551802/13/25 0531 02/14/25 0220 WBC 3.7 4.4 4.5 RBC 5.16 5.52 5.36 HGB 15.1 15.6 15.3 HCT 44.7 48.4 46.2 MCV 86.6 87.7 86.2 RDW 18.5* 19.2* 19.2* PLT 205 224 209 BMP: Recent Labs 02/12/2551802/13/25 0531 02/14/25 0220 NA 141 142 141 [...] ejection fraction of 41% on echocardiogram 01/31/2025-s/p ORDER TRACER-D Follicular non-Hodgkin's lymphoma. Hypothyroidism. Bladder cancer Gastroesophageal [...] MD Division of Hospitalist Medicine Inpatient Medical Services[place] [place]: [phone] [1] Past Medical History: Diagnosis Date Acute [...] (HCC) Presence of cardiac resynchronization therapy defibrillator (ORDER TRACER-D) 01/17/2022 PUD (peptic ulcer disease) Pulmonary embolism [...] note were not included. Hospitalist Progress Note 02/13/20256994763-8490: Please page me ([phone]) for patient care issues. [phone]: Please page [facility] night Hospitalist for any issues. Subjective: Admit Date: 02/10/2025 PCP: Gibson Roth (Inactive) Room#: B4-454/B4454 B Interval History: Patient is lying on the bed, complaining of pain in the lower extremities Denies any chest pain shortness of breath or palpitations No other significant overnight issues. Adult diet Regular; No Added Salt (3-4 gm); 5 carb choices (75 gm/meal) @[id number]@ 24HR INTAKE/OUTPUT: Intake/Output Summary (Last 24 hours) [...] ejection fraction of 41% on echocardiogram 01/31/2025-s/p ORDER TRACER-D Follicular non-Hodgkin's lymphoma. Hypothyroidism. Bladder cancer Gastroesophageal [...] MD Division of Hospitalist Medicine Inpatient Medical Services[place]: [phone] [1] Past Medical History: Diagnosis Date Acute [...] (HCC) Presence of cardiac resynchronization therapy defibrillator (ORDER TRACER-D) 01/17/2022 PUD (peptic ulcer disease) Pulmonary embolism [...] torsemide, 40 mg, Oral, Daily * Pari Carmen, RD - 02/12/2025 11:32 AM EDT Nutrition [...] Unable to assess Fluid Accumulation: Severe Extremities Portrait Consultant Strength: Not Performed Nutrition Assessment: 84 year old man with PMHx: DMII, CKD stage IIIb, CHF(EF rate ~12% 01/30/25), DVT, bladder cancer, HTN, HLD, PUD. Recent admit 01/28-02/01/25 to [facility] with volume overload and CHF Exacerbation. +scrotal and lower extremity edema for three weeks MANAGER DATA. Treated with IV Lasix and transitioned to 40 mG Torsemide prior to discharge. On day of discharge with weight of 186.6#, and he was discharged home in improved condition. He currently presents to [facility] with worsening swelling, redness, and pain in bilaterallower extremities- presumed cellulitis. Noted weight of 182.4# on evening of 02/09/25. Significant labs on admit: Gap(17), Creatinine(1.94), AST(39), bilirubin(1.8),BNP(>06198). Negative venous duplex imaging. ID consulted and following with plans to transition form IV cefetpime to PO antibiotics. Pleasant and interactive, resting in bed at time of assessment with bed scale weight of 80.7 kg or177.9# obtained. Noted patient ate ~75% breakfast tray (observed by this RDN). Cites appetite is okay , +diarrhea and early satiety. Estimates eating two meals daily MANAGER DATA. While he has used ONS in thepast- declined a this time due to loose stooling. Requested A brownie and milk, liberlized diet. Estimated Daily Nutrient Needs: Energy Requirements Based On: Kcal/kg Weight Used for Energy Requirements: [place] Weight for Energy Calculation (kg): 67 kg Total Energy Requirements (kcals/day): 4214-6507 (25-30 kcal/kg IBW) Weight Used for Protein Requirements: [place] Weight in Kg Used for Protein Requirements: [...] 01/26/25;186.6# 02/01/25) % Weight Change (Calculated): -4.7 [place] Body Weight (lbs) (Calculated): 148 lbs [place] Body Weight (Kg) (Calculated): 67 kg % [place] Body Weight (Calculated): 120.2 % BMI (kg/m2) (Calculated): 27.9 Weight Adjustment For: No Adjustment BMI Categories: Overweight (BMI 25.0-29.9) Nutrition Diagnosis: Altered nutrition-related lab values related to cardiac dysfunction as evidenced by localized or generalized fluid accumulation, lab values Nutrition Interventions: Nutrition Education/Counseling: Education not indicated Coordination of Nutrition Care: Continue to monitor while inpatient Plan of Care discussed with: patient and DONOR PROCESSOR Goals: Previous Goal Met: Progressing toward Goal(s) Goals: PO intake 50% or greater Nutrition Monitoring and Evaluation: Behavioral-Environmental Outcomes: None Identified Food/Nutrient Intake Outcomes: Food and Nutrient Intake Physical Signs/Symptoms Outcomes: Biochemical Data, Chewing or Swallowing, Diarrhea, Nutrition Focused Physical Findings, Skin, Weight, Meal Time Behavior, Hemodynamic Status, Fluid Status or Edema Discharge Planning: Continue current diet Pari Morales RDN, LDN, Contact: *[phone] * Melvin Mei MD - 02/12/2025 10:20 AM EDT Images from the original note were not included. Hospitalist Progress Note 02/12/2025 [phone]: Please page me ([phone]) for patient care issues. [phone]: Please page [facility] night Hospitalist for any issues. Subjective: Admit Date: 02/10/2025 PCP: Gibson Roth (Inactive) Room#: E9-507/H7-562 B Interval History: Patient is lying on the bed, complaining of pain in the lower extremities Denies any chest pain shortness of breath or palpitations No other significant overnight issues. Adult diet Regular; 4 carb choices (60 gm/meal); Low Fat/Low Chol/High Fiber/2 gm Na @[id number]@ 24HR INTAKE/OUTPUT: Intake/Output Summary (Last 24 hours) [...] ejection fraction of 41% on echocardiogram 01/31/2025-s/p ORDER TRACER-D Follicular non-Hodgkin's lymphoma. Hypothyroidism. Bladder cancer Gastroesophageal [...] MD Division of Hospitalist Medicine Inpatient Medical Services[place]: [phone] [1] Past Medical History: Diagnosis Date Acute [...] HOSPITAL) Presence of cardiac resynchronization therapy defibrillator (ORDER TRACER-D) 01/17/2022 PUD (peptic ulcer disease) Pulmonary embolism [...] note were not included. Hospitalist Progress Note 02/11/2025 [phone]: Please page ut ([phone]) for patient care issues. [phone]: Please page [facility] night Hospitalist for any issues. Subjective: Admit Date: 02/10/2025 PCP: Gibson Roth (Inactive) Room#: G5-925/T4-727 B Interval History: Patient is lying on the bed, complaining of pain in the lower extremities Denies any chest pain shortness of breath or palpitations No other significant overnight issues. Adult diet Regular; 4 carb choices (60 gm/meal); Low Fat/Low Chol/High Fiber/2 gm Na @[id number]@ 24HR INTAKE/OUTPUT: Intake/Output Summary (Last 24 hours) [...] ejection fraction of 41% on echocardiogram 01/31/2025-s/p ORDER TRACER-D Follicular non-Hodgkin's lymphoma. Hypothyroidism. Bladder cancer Gastroesophageal [...] MD Division of Hospitalist Medicine Inpatient Medical Services[place]: [phone] [1] Past Medical History: Diagnosis Date Acute [...] (HCC) Presence of cardiac resynchronization therapy defibrillator (ORDER TRACER-D) 01/17/2022 PUD (peptic ulcer disease) Pulmonary embolism [...] from the original note were not included. [facility] - Infectious Diseases Attending [...] 94 AST 39* ALT 10 Recent Labs 07/24/25 0224 WBC 5.1 HGB 14.8 HCT 45.8 [...] HOSPITAL) Presence of cardiac resynchronization therapy defibrillator (ORDER TRACER-D) 01/17/2022 PUD (peptic ulcer disease) Pulmonary embolism [...] Daily Moises Adan MD 1 capsule at 02/11/25934 cefepime (Maxipime) 2,000 mg in sodium chloride 0.9 % 50 mL IVPB Mini-Bag Plus 2,000 mg EfiscVPZcese79s Moises Adan MD Stopped at 02/11/25 0937 cholecalciferol (Vitamin D-3) tablet 50 mcg 50 mcg Oral Daily Moises Adan MD 50 mcg at 02/11/2535 cyanocobalamin (Vitamin B-12) tablet 1,000 mcg 1,000 mcg Oral Daily Moises Adan MD 1,000 mcg at 02/11/25933 dextrose 5 % infusion 100 mL/hr IntraVENous PRN Moises Adan MD dextrose 50 % solution 12.5 g 12.5 g IntraVENous PRN Moises Adan MD enoxaparin (Lovenox) syringe 40 mg 40 mg SubCUTAneous Daily Moises Adan MD 40 mg at 02/11/2535 ferrous sulfate tablet 325 mg 325 mg [...] High Blood Pressure Mother documented in this [facility]07-28-2025 NoteHospitalist Progress Note 02/14/2025 [phone]: Please page me ([phone]) for patient care issues. [phone]: Please page [facility] night Hospitalist for any issues. Subjective: Admit Date: 02/10/2025 PCP: Gibson Roth (Inactive) Room#: U8-454/H6-282 B Interval History: Patient is sitting on the bed, lower extremity pain improving. Denies any chest pain shortness of breath or palpitations. Adult diet Regular; No Added Salt (3-4 gm); 5 carb choices (75 gm/meal) @[id number]@ 24HR INTAKE/OUTPUT: Intake/Output Summary (Last 24 hours) [...] PLT 205 224 209 BMP: Recent Labs 02/12/2551802/13/2553002/14/25219 NA 141 142 141 K 2.8* 3.8 [...] ejection fraction of 41% on echocardiogram 01/31/2025-s/p ORDER TRACER-D Follicular non-Hodgkin's lymphoma. Hypothyroidism. Bladder cancer Gastroesophageal [...] MD Division of Hospitalist Medicine Inpatient Medical Services[place]: [phone] [1] Past Medical History: Diagnosis Date Acute [...] branch block 09/11/2020 No (more content not included)...[facility]07-28-2025 Nurse Note* Lavonne Grace RN - 02/14/2025 8:45 AM EDT Wound Care consulted for Pressure Injury Prevention. Pt's Simon score= 18 on 02/14 Pt's pressure points assessed. Pt turned independently in the bed for posterior assessment. Pt's Heels, Buttocks/coccyx, Back, Elbows, Occiput and ears all intact. Rosita and blanchable tissues noted to coccyx. Instructed [...] any questions or concerns. Lavonne Grace RN [facility] [id number] NoteHospitalist Progress Note 02/13/2025 [phone]: Please page me ([phone]) for patient care issues. [phone]: Please page [facility] night Hospitalist for any issues. Subjective: Admit Date: 02/10/2025 PCP: Gibson Roth (Inactive) Room#: B4-454/B4-213 B Interval History: Patient is lying on the bed, complaining of pain in the lower extremities Denies any chest pain shortness of breath or palpitations No other significant overnight issues. Adult diet Regular; No Added Salt (3-4 gm); 5 carb choices (75 gm/meal) @[id number]@ 24HR INTAKE/OUTPUT: Intake/Output Summary (Last 24 hours) [...] ejection fraction of 41% on echocardiogram 01/31/2025-s/p ORDER TRACER-D Follicular non-Hodgkin's lymphoma. Hypothyroidism. Bladder cancer Gastroesophageal [...] MD Division of Hospitalist Medicine Inpatient Medical Services[place]: [phone] [1] Past Medical History: Diagnosis Date Acute [...] branch block 09/11/2020 Non-ischemic cardiomyopathy (CMS/HCC) (HCC) e (more content not included)...[facility]07-26-2025 Note Hospitalist Progress Note 02/12/20256996529-5389: Please page me ([phone]) for patient care issues. [phone]: Please page [facility] night Hospitalist for any issues. Subjective: Admit Date: 02/10/2025 PCP: Gibson Roth (Inactive) Room#: [facility] B Interval History: Patient is lying on the bed, complaining of pain in the lower extremities Denies any chest pain shortness of breath or palpitations No other significant overnight issues. Adult diet Regular; 4 carb choices (60 gm/meal); Low Fat/Low Chol/High Fiber/2 gm Na @[id number]@ 24HR INTAKE/OUTPUT: Intake/Output Summary (Last 24 hours) [...] ANIONGAP 17* 14* LIVER PROFILE: Recent Labs 07/24/25 0224 AST [...] ejection fraction of 41% on echocardiogram 01/31/2025-s/p ORDER TRACER-D Follicular non-Hodgkin's lymphoma. Hypothyroidism. Bladder cancer Gastroesophageal [...] MD Division of Hospitalist Medicine Inpatient Medical Services[place]: [phone] [1] Past Medical History: Diagnosis Date Acute [...] Presence of cardiac resynchronizatio (more content not included)...[facility]07-25-2025 Nurse Note* Carmen Kraft RN - 02/11/2025 7:45 PM EDT ROLO wrap applied to both feet. [facility] [id number] NoteHospitalist Progress Note 02/11/20256991489-1576: Please page me ([phone]) for patient care issues. [phone]: Please page [facility] night Hospitalist for any issues. Subjective: Admit Date: 02/10/2025 PCP: Gibson Roth (Inactive) Room#: B4-320/B4-285 B Interval History: Patient is lying on the bed, complaining of pain in the lower extremities Denies any chest pain shortness of breath or palpitations No other significant overnight issues. Adult diet Regular; 4 carb choices (60 gm/meal); Low Fat/Low Chol/High Fiber/2 gm Na @[id number]@ 24HR INTAKE/OUTPUT: Intake/Output Summary (Last 24 hours) [...] ejection fraction of 41% on echocardiogram 01/31/2025-s/p ORDER TRACER-D Follicular non-Hodgkin's lymphoma. Hypothyroidism. Bladder cancer Gastroesophageal [...] Advance Directive: Full Code Discharge planning: GRADY Hopemsi Juan Mei MD Division of Hospitalist Medicine Inpatient Medical Services[place]: [phone] [1] Past Medical History: Diagnosis Date Acute [...] (HCC) Presence of cardiac resynchronization therapy defibrillator (ORDER TRACER-D) 01/17/2022 PUD (peptic ulcer disease) Pulmonary embolism (HCC) Pulmonary fibrosis (HCC) Rosacea Stage 3b chronic kidney di (more content not included)...[facility] 02-11-2025 NoteCare Management Progress Note Short Medical why still here: Patient remains on 4S today for BLE cellulitis, IV ATBX through the weekend. CHF, diuresis continued. ID consulted and seen. Wound following. Monitoring labs/lytes. No indications for therapy at this time. Planned Discharge Disposition: From home, possible need for therapy to eval. C to follow. Barriers/Today we still Wait: IV ATBX, ID final recs. Clinical stability. Length of Stay (Days): 1 GMLOS: No GMLOS Documented [facility]07-25-2025 Progress note* Care Coordination - Jewels Ortzi RN - 02/11/2025 2:51 PM EDT Care Management Progress Note Short Medical why still here: Patient remains on 4S today for BLE cellulitis, IV ATBX through the weekend. CHF, diuresis continued. ID consulted and seen. Wound following. Monitoring labs/lytes. No indications for therapy at this time. Planned Discharge Disposition: From home, possible need for therapy to eval. C to follow. Barriers/Today we still Wait: IV ATBX, ID final recs. Clinical stability. Length of Stay (Days): 1 GMLOS: No GMLOS Documented [facility] [id number] Hospital Discharge instructions* Discharge Instr - MICHELE* [...] Primary Emergency Contact: Zuleyka Nascimento Mobile Relation: Certification Officer Secondary Emergency Contact: Shaylee Nascimento Relation: Child [...] (HCC) Presence of cardiac resynchronization therapy defibrillator (ORDER TRACER-D) Acute systolic congestive heart failure (HCC) Cellulitis [...] (182 lb) Mental Status: {MICHELE Patient Mental Status:03907} IV Access: {MICHELE IV Access:91343} Nursing Mobility/ADLs: Walking {SUDHAKAR ADL:::Independent} Transfer {SUDHAKAR ADL:::Independent} Bathing {SUDHAKAR ADL:::Independent} Dressing {SUDHAKAR ADL:::Independent} Toileting {SUDHAKAR ADL:::Independent} Feeding {SUDHAKAR ADL:::Independent} Counselor Dormitory {SUDHAKAR ADL:::Independent} Med Delivery {yes/no:50901} Wound Care Documentation and Therapy: Elimination: Continence: Bowel: {yes/no:} Bladder: {yes/no:} Urinary Catheter: {MICHELE Urinary Catheter:29341} Colostomy/Ileostomy/Ileal Conduit: {YES / NO:} Date of Last BM: Intake/Output Summary (Last 24 hours) at 02/11/2025 1356 Last data filed at 02/11/2025 0840 Gross per 24 hour Intake 240 ml Output 300 ml Net -60 ml I/O last 3 completed shifts: In: 50 (0.6 mL/kg) [IV Piggyback:50] Out: - (0 mL/kg) Weight: 82.6 kg Safety Concerns: {MICHELE Safety Concerns:63479} Impairments/Disabilities: {MICHELE Impairments/Disabilities:89339} Nutrition Therapy: Current Nutrition Therapy: {MICHELE Diet List:26041} Routes of Feeding: {routes of feedin} Liquids: {liquid consistency:48440} Daily Fluid Restriction: {daily fluid restriction:71774} Last Modified Barium Swallow with Video (Video Swallowing Test): {done not done:26073} Treatments at the Time of Hospital Discharge: Respiratory Treatments: Oxygen Therapy: {Therapy; copd oxygen:87223} Ventilator: {MICHELE Ventilator:26785} Rehab Therapies: {GEN THERAPY DISCIPLINE SCAL:6976006} Weight Bearing Status/Restrictions: {POD WEIGHT BEARIN} Other Medical Equipment (for information only, NOT a DME order): {Assistive Devices DME:10554} Other Treatments: Patient's personal belongings (please select all that are sent with patient): {MICHELE Patient Belongings:25084} RN SIGNATURE: {E-signature:76932} CASE MANAGEMENT/SOCIAL WORK SECTION Inpatient Status Date: Discharging to Facility/ Agency Name: [facility] Address: [address] [place] [address] Dialysis Facility (if applicable) Name: Address: Dialysis Schedule: Phone: Fax: Imaging Clerk/Detonator Assembler signature: {E-signature:84008} PHYSICIAN SECTION Name: Megan Nascimento Prognosis: {Rehab Prognosis:33656} Condition at Discharge: {Patient Condition:51218} Rehab Potential (if transferring to Rehab): {Rehab Prognosis:72289} Recommended Labs or Other Treatments After Discharge: The individual is being admitted to a nursing facility directly from an [facility] or a unit of a [facility] that is not operated by or licensed by [facility] under section 5119.14 or 5160-3-15.1 5 The individual requires the level of services provided by a nursing facility for the condition for which he or she was treated in the hospital and, Physician Certification: I certify the above information and transfer of Megan Nascimento is necessary for the continuing treatment of the diagnosis listed and that he requires {MICHELE Level of Care:84775} for {greater less than:52984} 30 days. Update Admission H&P: {MICHELE Changes in H&P:85351} PHYSICIAN SIGNATURE: {E-signature:93166} documented in this [facility]07-25-2025 NotePatient states he quit smoking in 1999, no history of vaping or smokeless tobacco. Smoking cessation counseling no indicated.[facility] 02-11-2025 [facility] - Infectious Diseases [...] HOSPITAL) Presence of cardiac resynchronization therapy defibrillator (ORDER TRACER-D) 01/17/2022 PUD (peptic ulcer disease) Pulmonary embolism [...] SEPTOPLASTY SKIN BIOPSY VENTRICULA (more content not included)...[facility]07-25-2025 Patient's home Note* Home Care - Maria Antonia Mcmullen RN - 02/11/2025 8:39 AM EDT Patient is currently active with [facility]. The patients current certification period will on 04/04/2025. The patient is currently receiving SN, PT services through the agency. Technical Illustrations Map Inker to continue to follow. [facility] HospitalUqenou36-32-7274 Consult note* Mannie Samuel MD - 02/10/2025 2:43 PM EDT Associated Order(s): IP CONSULT TO INFECTIOUS DISEASES Images from the original note were not included. [facility] - Infectious Diseases Attending [...] HOSPITAL) Presence of cardiac resynchronization therapy defibrillator (ORDER TRACER-D) 01/17/2022 PUD (peptic ulcer disease) Pulmonary embolism [...] 50 mL IVPB Mini-Bag Plus 2,000 mg [id number] Moises Adan MD cholecalciferol (Vitamin D-3) tablet [...] mg 40 mg Oral qAM AC Moises Aadn MD rosuvastatin (Crestor) tablet 20 mg 20 [...] Blood Pressure Father High Blood Pressure Mother [facility] HospitalJdfyce77-65-4619 Consult note* Mannie Samuel MD - 02/10/2025 2:43 PM EDT Associated Order(s): IP CONSULT TO INFECTIOUS DISEASES Images from the original note were not included. [facility] - Infectious Diseases Attending [...] HOSPITAL) Presence of cardiac resynchronization therapy defibrillator (ORDER TRACER-D) 01/17/2022 PUD (peptic ulcer disease) Pulmonary embolism [...] 50 mL IVPB Mini-Bag Plus 2,000 mg [id number] Moises Adan MD cholecalciferol (Vitamin D-3) tablet [...] High Blood Pressure Mother documented in this [facility]07-24-2025 History and physical note* Moises Adan [...] Information Primary Emergency Contact: AzamZuleyka Mobile Relation: Certification Officer Secondary Emergency Contact: Negrito Nascimentosa Relation: Child ADVANCED CARE PLANNING Megan Nascimento : 1940 Primary Care Physician: Gibson Roth (Inactive) The patient and/or family/surrogate voluntarily agreed to participate in ACP services. Patient s cognitive capacity: Alert, Orientedx3 Code Status: [x_] [FULL CODE - Continue all advanced life support: CPR,intubation,invasive procedures] [_] [DNR-CCA - DO NOT do CPR, intubation] [_] [DNR-PATTERN CARRIER - Comfort care only] [_] DNR form [was/was not] signed Moises Elian, MD Division of Hospitalist Medicine [facility] [1] Past Medical History: Diagnosis Date Acute [...] HOSPITAL) Presence of cardiac resynchronization therapy defibrillator (ORDER TRACER-D) 01/17/2022 PUD (peptic ulcer disease) Pulmonary embolism ([facility]) Pulmonary fibrosis (HCC) Rosacea Stage 3b chronic [...] Red eye Lovastatin Other reaction(s): Myalgia Other [facility]07-24-2025 NoteAttending History and Physical Admit Date: 02/10/2025 [...] edema bilateral lower extremit (more content not included)...[facility]07-24-2025 History and physical note* Moises Adan MD [...] Primary Emergency Contact: Zuleyka Nascimento Mobile Relation: Certification Officer Secondary Emergency Contact: Shaylee Nascimento Relation: Child ADVANCED CARE PLANNING Megan Nascimento : 1940 Primary Care Physician: Gibson Roth (Inactive) The patient and/or family/surrogate voluntarily agreed to participate in ACP services. Patient s cognitive capacity: Alert, Orientedx3 Code Status: [x_] [FULL CODE - Continue all advanced life support: CPR,intubation,invasive procedures] [_] [DNR-CCA - DO NOT do CPR, intubation] [_] [DNR-PATTERN CARRIER - Comfort care only] [_] DNR form [was/was not] signed Moises Adan MD Division of Hospitalist Medicine [facility] [1] Past Medical History: Diagnosis Date [...] HOSPITAL) Presence of cardiac resynchronization therapy defibrillator (ORDER TRACER-D) 01/17/2022 PUD (peptic ulcer disease) Pulmonary embolism [...] Landa DO, LastRate: 125 mL/hr at 02/10/25 044, 1,500 mg at 02/10/25 044 Current Outpatient Medications: cholecalciferol (Vitamin D-3) 25 [...] Other reaction(s): Myalgia Other documented in this [facility]07-24-2025 Emergency department Note* Latricia Landa DO [...] (premix) (1,500 mg IntraVENous New Bag 02/10/25 4602) cefepime (Maxipime) 2,000 mg in sodium chloride 0.9 % 50 mL IVPB Mini-Bag Plus (0 mg IntraVENous Stopped 02/10/25 8131) FINAL IMPRESSION 1. Cellulitis of lower extremity, [...] HOSPITAL) Presence of cardiac resynchronization therapy defibrillator (ORDER TRACER-D) 01/17/2022 PUD (peptic ulcer disease) Pulmonary embolism [...] Comment: caffeine:1-2 cups of coffee a day [employer] Intimate Partner Violence: Not At Risk (01/28/2025) Humiliation, Afraid, Rape, and Kick questionnaire Fear of Current or Ex-Partner: No Emotionally Abused: No Physically Abused: No Sexually Abused: No Latricia Landa DO 02/10/25 0551 documented in this [facility]07-24-2025 Physician Emergency department Note* Latricia Landa [...] (premix) (1,500 mg IntraVENous New Bag 02/10/25 2292) cefepime (Maxipime) 2,000 mg in sodium chloride 0.9 % 50 mL IVPB Mini-Bag Plus (0 mg IntraVENous Stopped 02/10/25 7201) FINAL IMPRESSION 1. Cellulitis of lower extremity, [...] HOSPITAL) Presence of cardiac resynchronization therapy defibrillator (ORDER TRACER-D) 01/17/2022 PUD (peptic ulcer disease) Pulmonary embolism [...] Abused: No Latricia Landa DO 02/10/[address] HospitalDepfnw55-03-8203 Telephone encounter Note* Telephone Encounter - Bipin Givens RN - 02/07/2025 1:50 PM EDT TC to Pt No answer LVM [facility] HospitalIxtpgf24-97-2987 Miscellaneous Notes* Telephone Encounter - Bipin Givens [...] phone call. documented in this encounterSK[facility] SpringfieldPcngyd20-79-3295 Telephone encounter Note* Telephone Encounter - Marisol Kim - 02/07/2025 1:32 PM EDT Patient left message saying he had a question about meds [facility] HospitalBsychj99-40-2043 Telephone encounter Note* Telephone Encounter - Bipin Givens RN - 02/07/2025 8:35 AM EDT Per Marcela Rosado Pt can continue the Dupixent No answer LVM explaining this as VM states full name [facility] HospitalYckyst08-61-9310 Telephone encounter Note* Telephone Encounter - Bipin [...] again. RP 02/15/25 1430 Pt verbalizes understanding. [facility] HospitalLahbtw37-53-4232 Miscellaneous Notes* Telephone Encounter - Bipin Givens [...] phone call. documented in this encounterSKettering Health SpringfieldDileqt06-10-3748 Telephone encounter Note* Telephone Encounter - Nidia Garcia - 02/04/2025 2:14 PM EDT Patient called and was returning your phone call [facility] HospitalMvsxhj12-98-8595 Telephone encounter Note* Telephone Encounter - Bipin Givens RN - 02/04/2025 2:02 PM EDT TC to Pt no answer LVM [facility] HospitalAeubvi96-47-6615 NoteChart reviewed. Attempted to contact patient for transitional outreach. No answer. Left VM requesting a return call back. Future outreach scheduled.[facility]07-18-2025 Telephone encounter Note* Telephone Encounter - CHLOE Manuel CNP - 02/04/2025 8:35 AM EDT Discharged with heart failure. Needs 72 hour post discharge phone call. [facility] [place] [employer] Work Phone: [phone] NoteFollowing patient for transitions. Received notification of patient's discharge home on 02/01 with MIRI via discharge report in [employer]. Future transitional outreach scheduled.[facility]07-15-2025 Nurse Note* Randy Cornelius RN - 02/01/2025 6:15 PM EDT AVS instructions given. Meds to bed delivered. IV's removed. threat monitoring analyst removed, cleaned and placed at corresponding location nurses station. Patient has no questions or concerns at this time. Returning home via family. [facility] HospitalYhwvru66-70-9896 Nurse Note* Randy Cornelius RN - 02/01/2025 6:15 PM EDT AVS instructions given. Meds to bed delivered. IV's removed. threat monitoring analyst removed, cleaned and placed at corresponding location [...] care given). Prevention Measures in place, including: Hinton sheet with pillows (in place), Pt declined Bilateralfoam heel protectors, off loading heels on pillows, Sacral foam and, Zinc/Moisture Barrier ointment. Moisture absorbant pad (in place), Bed Alarm On. Skin Care precaution order set in place d/t Simon score 18 on 01/28/2025. Dietitian consult in place. PT consult NA Simon > 3. 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 Will continue to follow pt. Please Voicera for any questions or concerns. Saundra Vinson RN, BSN documented in this [facility]07-15-2025 Miscellaneous Notes* Care Coordination - Unknown Case Management - 02/01/2025 4:05 PM EDT Patient Choice Patient Name: MEGAN NASCIMENTO Date of : 1940 All Providers Sent Referral Name: [facility] Phone: [phone] Address: [address] [place] [address] * Home Care - Rachid Mc RN [...] HHC and agreeable to SN services with [facility] - Home Care. Care [...] is noted as yes - consider a CORPORATE AFFAIRS MANAGER evaluation once the patient returns home. START PATIENT REGISTRATION INFORMATION Order Information Order Signing Physician: Dee Jones MD Service Ordered RN ?: Yes Service Ordered PT ?: No Service Ordered OT ?: No Service Ordered ST ?: No Service Ordered CORPORATE AFFAIRS MANAGER?:No Service Ordered JAR CAPPER?: No Following Physician: Dr. Rigoberto Durand Following Physician Overseeing Physician: Dr. Durand (Required for Residents only) Agreeable to Follow? Yes Date/Time of Call 02/01/25 10:23 AM, Spoke with: pending response from PCP Care Coordination Same Day SOC?: No Primary Care Physician: Dr. Rigoberto Durand Primary Care Physician Primary Care Physician Address: [address] [place] [address] [address], [place] [address] Visit Instructions: N/A Service Discharge Location Type: Home with Home Care Service Facility Name: N/A Service Floor Facility: N/A Service Room No: N/A Demographics Patient Last Name: Azam Patient First Name: Megan Language/Communication Barrier: none Service Address: [address] [place] [address] [address] Service City: [place] Service ST: [place] Service ZIP: [address] Service (home) Other phone numbers: Telephone Information: Emergency Contact: Extended Emergency Contact Information Primary Emergency Contact: Zuleyka Nascimento Mobile Relation: Certification Officer Secondary Emergency Contact: Shaylee Nascimento Relation: Child [...] Caregiver Phone Number: na Caregiver Notes: N/A [employer] List HIGHTECH: [employer] TECH - NEXT DAY REQUEST Requests Next [...] PMH significant for chronic HFrEF, NICM, s/p ORDER TRACER-D, CKD IV, HTN, DVT/PE, diabetes who presented to [facility] on 01/28/25 secondary to concern for ADHF. NT Pro BNP 23,300, troponin negative, CXR with pulmonary vascular congestion, bilateral pleural effusions, EKG paced. Cardiology consulted and Pt found to be massively hypervolemic, started on IV diuresis. Discharge Date: pending Referral Source-PACC: (Hospital/Unit): [facility] / [id number]/[id number] B End PACC [...] Limits Permission given to speak with patient member services representative/caregiver as indicated: Yes Confirmation of Payer with patient/family: Yes Payer Name: [facility] Medicare advantage [place]: No Confirmation of Primary Care Physician: Confirmed [...] Alone Support Systems: Children, Family members, Friends/neighbors, tour manager/social work faculty member, [facility] Activities of Daily Living Ambulation: Independent Bathing/Dressing: [...] Walker DME Provider: His daughter is his care trainer Patient's Goal/Discharge Plan Patient expects to be [...] fall injury Outcome: Progressing documented in this [facility]07-15-2025 Note* Care Coordination - Unknown Case Management - 02/01/2025 4:05 PM EDT Patient Choice Patient Name: MEGAN NASCIMENTO Date of : 1940 All Providers Sent Referral Name: [facility] Phone: [phone] Address: [address] [place] [address] HospitalAbrook53-95-2913 Note* Care Coordination - Unknown Case Management - 02/01/2025 4:05 PM EDT Patient Choice Patient Name: MEGAN NASCIMENTO Date of : 1940 All Providers Sent Referral Name: [employer] [facility] Phone: [phone] Address: [address] [place] [address] HospitalUbwlog23-47-2908 Note* Home Care - Rachid Mc RN - 02/01/2025 2:05 PM EDT Confirmed with Valerie at PCP's office that patient is active with Dr. Durand for PCP and he will follow for home care orders. [facility] HospitalGglakq73-03-3884 Note* Home Care - Rachid Mc RN - 02/01/2025 2:05 PM EDT Confirmed with Valerie at PCP's office that patient is active with Dr. Durand for PCP and he will follow for home care orders. [facility] HospitalYczeil65-07-3832 NoteDischarge Summary Megan Nascimento : 1940 ADMIT DATE: 01/28/2025 DISCHARGE DATE: 02/01/2025 PRIMARY CARE PHYSICIAN: Gibson Roth (Inactive) VISIT STATUS: Admission CODE STATUS: Full Code DISCHARGE DIAGNOSES: Principal Problem: Acute systolic congestive heart failure (HCC) Active Problems: Presence of cardiac resynchronization therapy defibrillator (ORDER TRACER-D) HTN (hypertension) Follicular non-Hodgkin's lymphoma (HCC) HOSPITAL [...] his diagnosis/management during his stay here at [facility]: Acute, acute on chronic, unstable/uncontrolled chronic problems/diagnoses: Acute on chronic HFrEF EF now 12% 2/2 NICM. S/p ORDER TRACER-D. Stage C - Presented decompensated with volume [...] acute on chronic HFrEF 2/2 NICM, Per [facility], echo done 01-31-25 shows left ventricle with [...] Your Medications These medications were sent to [facility] [address] [place] [address] Hours: Friday to Friday 10 am to 6 pm tamsulosin 0.4 MG 24 hr capsule Torsemide 40 MG tablet DIET: Adult diet Regular; Low Sodium (2 gm); 5 carb choices (75 gm/meal) ACTIVITY: No restriction. (more content not included)...[facility]07-15-2025 Hospital course Narrative* Dee Jones MD - 02/01/2025 11:58 AM EDT Discharge Summary Megan Nascimento : 1940 ADMIT DATE: 01/28/2025 DISCHARGE DATE: 02/01/2025 PRIMARY CARE PHYSICIAN: Gibson Roth (Inactive) VISIT STATUS: Admission CODE STATUS: Full Code DISCHARGE DIAGNOSES: Principal Problem: Acute systolic congestive heart failure (HCC) Active Problems: Presence of cardiac resynchronization therapy defibrillator (ORDER TRACER-D) HTN (hypertension) Follicular non-Hodgkin's lymphoma (HCC) HOSPITAL [...] days. Seen in Ed by cardiology and rommel. The following is a summary of his diagnosis/management during his stay here at [facility]: Acute, acute on chronic, unstable/uncontrolled chronic problems/diagnoses: Acute on chronic HFrEF EF now 12% 2/2 NICM. S/p ORDER TRACER-D. Stage C - Presented decompensated with volume [...] Your Medications These medications were sent to [facility] [address] [place] [address] Hours: Friday to Friday 10 am to 6 pm tamsulosin 0.4 MG 24 hr capsule Torsemide 40 MG tablet DIET: Adult diet Regular; Low Sodium (2 gm); 5 carb choices (75 gm/meal) ACTIVITY: No restriction. COMPLEXITY OF FOLLOW UP: [] Moderate Complexity: follow up within 7-14 calendar days (05450) [] Severe Complexity: follow up within 7 calendar days (28604) FOLLOW UP TESTING, PENDING RESULTS OR REFERRALS AT TRANSITIONAL CARE VISIT: [] Yes [] No PENDING STUDIES: DISPOSITION: Home with Home Health Care FACILITY/HOME CARE AGENCY NAME: Follow up with Petra Renteria APRN - [facility]II[facility] [address] [place] [address], [address] [facility] [address] Go on 02/15/2025 appointment time 2:30pm INSTRUCTIONS [...] MD 02/01/2025, 11:58 AM documented in this [facility]07-15-2025 Note* Care Coordination - Nelly Pisano RN - 02/01/2025 10:59 AM EDT Care Management Progress Note Short Medical why still here: Echo complete, EF 12%. Cardiology following, going to treat medically. Meds being changed Planned Discharge Disposition: Home or Self Care Barriers/Today we still Wait: Administering IV medications, Clinical stability Length of Stay (Days): 4 GMLOS: [address] HospitalWmhwmo79-18-2592 Note* Care Coordination - Nelly Pisano RN - 02/01/2025 10:59 AM EDT Care Management Progress Note Short Medical why still here: Echo complete, EF 12%. Cardiology following, going to treat medically. Meds being changed Planned Discharge Disposition: Home or Self Care Barriers/Today we still Wait: Administering IV medications, Clinical stability Length of Stay (Days): 4 GMLOS: 3.[address] HospitalZchcfv12-76-0439 NoteCare Management Progress Note Short Medical why still here: Echo complete, EF 12%. Cardiology following, going to treat medically. Meds being changed Planned Discharge Disposition: Home or Self Care Barriers/Today we still Wait: Administering IV medications, Clinical stability Length of Stay (Days): 4 GMLOS: 3.9 [facility]07-15-2025 Note* Home Care - Rachid Mc RN - 02/01/2025 10:21 AM EDT Start PACC Note Home Health Referral Educated patient on Home Care and services available. Patient offered choice of available HHC and agreeable to SN services with [facility] Home [facility]. Care [...] is noted as yes - consider a CORPORATE AFFAIRS MANAGER evaluation once the patient returns home. START PATIENT REGISTRATION INFORMATION Order Information Order Signing Physician: Dee Jones MD Service Ordered RN ?: Yes Service Ordered PT ?: No Service Ordered OT ?: No Service Ordered ST ?: No Service Ordered CORPORATE AFFAIRS MANAGER?:No Service Ordered JAR CAPPER?: No Following Physician: Dr. Rigoberto Durand Following Physician Overseeing Physician: Dr. Durand (Required for Residents only) Agreeable to Follow? Yes Date/Time of Call 02/01/25 10:23 AM, Spoke with: pending response from PCP Care Coordination Same Day SOC?: No Primary Care Physician: Dr. Rigoberto Durand Primary Care Physician Primary Care Physician Address: [address] [place] [address] [address], [place] [address] Visit Instructions: N/A Service Discharge Location Type: Home with Home Care Service Facility Name: N/A Service Floor Facility: N/A Service Room No: N/A Demographics Patient Last Name: Azam Patient First Name: Megan Language/Communication Barrier: none Service Address: [address] [place] [address] [address] Service City: [place] Service ST: [place] Service ZIP: [address] Service (home) Other phone numbers: Telephone Information: Emergency Contact: Extended Emergency Contact Information Primary Emergency Contact: Zuleyka Nascimento Mobile Relation: Certification Officer Secondary Emergency Contact: Shaylee Nascimento Relation: Child [...] Caregiver Phone Number: na Caregiver Notes: N/A [employer]: [employer] TECH - NEXT DAY REQUEST Requests Next [...] PMH significant for chronic HFrEF, NICM, s/p ORDER TRACER-D, CKD IV, HTN, DVT/PE, diabetes who presented to [facility] on 01/28/25 secondary to concern for ADHF. NT Pro BNP 23,300, troponin negative, CXR with pulmonary vascular congestion, bilateral pleural effusions, EKG paced. Cardiology consulted and Pt found to be massively hypervolemic, started on IV diuresis. Discharge Date: pending Referral Source-PACC: (Hospital/Unit): [facility] / [id number]/[id number] B End PACC Note [facility] HospitalSwrqlx96-49-1749 Note* Home Care - Rachid Mc RN - 02/01/2025 10:21 AM EDT Start PACC Note Home Health Referral Educated patient on Home Care and services available. Patient offered choice of available HHC and agreeable to SN services with [facility] - Home [facility]. Care [...] is noted as yes - consider a CORPORATE AFFAIRS MANAGER evaluation once the patient returns home. START PATIENT REGISTRATION INFORMATION Order Information Order Signing Physician: Dee Jones MD Service Ordered RN ?: Yes Service Ordered PT ?: No Service Ordered OT ?: No Service Ordered ST ?: No Service Ordered CORPORATE AFFAIRS MANAGER?:No Service Ordered JAR CAPPER?: No Following Physician: Dr. Rigoberto Durand Following Physician Overseeing Physician: Dr. Durand (Required for Residents only) Agreeable to Follow? Yes Date/Time of Call 02/01/25 10:23 AM, Spoke with: pending response from PCP Care Coordination Same Day SOC?: No Primary Care Physician: Dr. Rigoberto Durand Primary Care Physician Primary Care Physician [facility] [address] [place] [id number] Visit Instructions: N/A Service Discharge Location Type: Home with Home Care Service Facility Name: N/A Service Floor Facility: N/A Service Room No: N/A Demographics Patient Last Name: Azam Patient First Name: Megan Language/Communication Barrier: none Service Address: [address] [place] [address] [address] Service City: [facility] ST: [place] Service ZIP: [address] Service (home) Other phone numbers: Telephone Information: Emergency Contact: Extended Emergency Contact Information Primary Emergency Contact: Zuleyka Nascimento Mobile Relation: Certification Officer Secondary Emergency Contact: Shaylee Nascimento Relation: Child [...] Caregiver Phone Number: na Caregiver Notes: N/A [employer]: [employer] TECH - NEXT DAY REQUEST Requests Next [...] PMH significant for chronic HFrEF, NICM, s/p ORDER TRACER-D, CKD IV, HTN, DVT/PE, diabetes who presented to [facility] on 01/28/25 secondary to concern for ADHF. NT Pro BNP 23,300, troponin negative, CXR with pulmonary vascular congestion, bilateral pleural effusions, EKG paced. Cardiology consulted and Pt found to be massively hypervolemic, started on IV diuresis. Discharge Date: pending Referral Source-PACC: (Hospital/Unit): [facility] / W5-541/W5-541 B End PACC Note [facility] [id number] NoteStart PACC Note Home Health Referral Educated patient on Home Care and services available. Patient offered choice of available HHC and agreeable to SN services with [facility] [employer] [facility] - Home Care. Care Types: [...] is noted as yes - consider a CORPORATE AFFAIRS MANAGER evaluation once the patient returns home. START PATIENT REGISTRATION INFORMATION Order Information Order Signing Physician: Dee Jones MD Service Ordered RN ?: Yes Service Ordered PT ?: No Service Ordered OT ?: No Service Ordered ST ?: No Service Ordered CORPORATE AFFAIRS MANAGER?:No Service Ordered JAR CAPPER?: No Following Physician: Dr. Rigoberto Durand Following Physician Overseeing Physician: Dr. Durand (Required for Residents only) Agreeable to Follow? Yes Date/Time of Call 02/01/25 10:23 AM, Spoke with: pending response from PCP Care Coordination Same Day SOC?: No Primary Care Physician: Dr. Rigoberto Durand Primary Care Physician Primary Care Physician Address: [address] [place] [address] [address], [place] [address] Visit Instructions: N/A Service Discharge Location Type: Home with Home Care Service Facility Name: N/A Service Floor Facility: N/A Service Room No: N/A Demographics Patient Last Name: Azam Patient First Name: Megan Language/Communication Barrier: none Service Address: [address] [place] [address] [address] Service City: [place] Service ST: [place] Service ZIP: [address] Service (home) Other phone numbers: Telephone Information: Emergency Contact: Extended Emergency Contact Information Primary Emergency Contact: Zuleyka Nascimento Mobile Relation: Certification Officer Secondary Emergency Contact: Shaylee Nascimento Relation: Child [...] Caregiver Phone Number: na Caregiver Notes: N/A [employer] HIGHTECH: [employer] TECH - NEXT DAY REQUEST Requests Next [...] PMH significant for chronic HFrEF, NICM, s/p ORDER TRACER-D, CKD IV, HTN, DVT/PE, diabetes who presented to [facility] on 01/28/25 secondary to concern for ADHF. NT Pro BNP 23,300, troponin negative, CXR with pulmonary vascular congestion, bilateral pleural effusions, EKG paced. Cardiology consulted and Pt found to be massively hypervolemic, started on IV diuresis. Discharge Date: pending Referral Source-PACC: (Hospital/Unit): [facility] / W5-541/W5-541 B End PACC [facility]07-15-2025 Hospital Discharge instructions* Discharge Instr - Other Orders* Rachid Mc RN - 02/01/2025 10:18 AM EDT Discharging to Facility/ Agency Name: [facility] Address: [address] [place] [address] * Attachments The following attachments cannot be sent through Care Everywhere. * [facility] ZONES documented in this [facility]07-15-2025 [facility] Cardiology /Electrophysiology Progress Note HPI / Interval History: Megan Nascimento is a 84 year old male with a PMH of chronic HFrEF, NICM, s/p ORDER TRACER-D, CKD IV, HTN, DVT/PE, diabetes who presented to [facility] on 01/28/25 secondary to concern for [...] HFrEF EF now 12% 2/2 NICM. S/p ORDER TRACER-D. Stage C - Presented decompensated with volume [...] - It would be appropriate to review [facility] at first follow up considering worsening [...] the cardiology office to obtain appropriate covering BUSINESS CONTROL SPECIALIST/physician. Medications: Scheduled Meds[1] Infusion Medications: Continuous Meds[2] [...] 140 140 K 3 (more content not included)...[facility]07-15-2025 History of Present illness Narrative* Cindy Recinos APRN - MACHINE HAND - 02/01/2025 8:[address] [facility] [place] [facility] Cardiology /Electrophysiology Progress Note HPI / Interval History: Megan Nascimento is a 84 year old male with a PMH of chronic HFrEF, NICM, s/p ORDER TRACER-D, CKD IV, HTN, DVT/PE, diabetes who presented to [facility] on 01/28/25 secondary to concern for [...] HFrEF EF now 12% 2/2 NICM. S/p ORDER TRACER-D. Stage C - Presented decompensated with volume [...] the cardiology office to obtain appropriate covering BUSINESS CONTROL SPECIALIST/physician. Medications: Scheduled Meds[1] Infusion Medications: Continuous Meds[2] [...] Recent Labs 01/29/25 1710 01/30/25 1130 01/30/25 15301/31/25 12101/31/25 1728 NA 141 141 141 140 [...] 12 (A) 55 - 100 % Final Cindy Recinos APRN - [facility] Date Of Service 02/01/2025 [1] cholecalciferol, 25 [...] Hdz CNP - 01/31/2025 9:[address] [facility] [place] [facility] Cardiology /Electrophysiology Progress Note HPI / Interval History: Pt is a 84 year old male with a PMH significant for chronic HFrEF, NICM, s/p ORDER TRACER-D, CKD IV, HTN, DVT/PE, diabetes who presented to [facility] on 01/28/25 secondary to concern for [...] restriction #HTN -SBP 120-130s. Continue GDMT #S/p ORDER TRACER-D -Following in our device clinic, last cardiac device check with WELT STITCHER=98%, no events Addendum 1350: labs reviewed for [...] LVEFPHYS, LVEF2D, EF Dena Curtis APRN - MARIIA Date Of Service 01/31/2025 [1] cholecalciferol, 25 [...] Date: 01/28/2025 PCP: Gibson Roth (Inactive) [facility]: 84-year-old male presented [...] Primary Emergency Contact: Zuleyka Nascimento Mobile Relation: Certification Officer Secondary Emergency Contact: AzamShaylee Relation: Child Jeremy Sanchez DO Division of Hospitalist Medicine [facility] [1] Past Medical History: Diagnosis Date Acute [...] HOSPITAL) Presence of cardiac resynchronization therapy defibrillator (ORDER TRACER-D) 01/17/2022 PUD (peptic ulcer disease) Pulmonary embolism (HCC) Pulmonary fibrosis ([facility]) Rosacea Stage 3b chronic kidney disease ([facility]) 09/21/2020 Tachycardia [2] cholecalciferol, 25 mcg, Oral, [...] On: Kcal/kg Weight Used for Energy Requirements: [place] Weight for Energy Calculation (kg): 67 kg Total Energy Requirements (kcals/day): 25-28 kcal/kg = 5432-8386 kcal Weight Used for Protein Requirements: [place] Weight in Kg Used for Protein Requirements: [...] kg (193 lb 9.6 oz) (standing 01/28) [place] Body Weight (lbs) (Calculated): 148 lbs [place] Body Weight (Kg) (Calculated): 67 kg % [place] Body Weight (Calculated): 127.8 % BMI (kg/m2) [...] soon to determine Aleksandra Pak RD Contact: [employer] chat or *[phone] * Jabari Osman PA-C - 01/30/2025 8:[address] [facility] Cardiology /Electrophysiology Progress Note HPI / Interval History: Pt is a 84 year old male with a PMH significant for chronic HFrEF, NICM, s/p ORDER TRACER-D, CKD IV, HTN, DVT/PE, diabetes who presented to [facility] on 01/28/25 secondary to concern for [...] electrolytes consider increase in dose tomorrow #S/p ORDER TRACER-D -Following in our device clinic, last cardiac device check with WELT STITCHER=98%, no events Cardiology will continue to follow. [...] Date: 01/28/2025 PCP: Gibson Roth (Inactive) Room#: W5-541/W5542 B BRIEF HOSPITAL COURSE: 84-year-old male presented [...] Primary Emergency Contact: Zuleyka Nascimento Mobile Relation: Certification Officer Secondary Emergency Contact: Negrito Nascimentosa Relation: Child Jeremy Sanchez DO Division of Hospitalist Medicine [facility] [1] Past Medical History: Diagnosis Date Acute [...] HOSPITAL) Presence of cardiac resynchronization therapy defibrillator (ORDER TRACER-D) 01/17/2022 PUD (peptic ulcer disease) Pulmonary embolism (HCC) Pulmonary fibrosis (HCC) Rosacea Stage 3b chronic kidney disease ([facility]) 09/21/2020 Tachycardia [2] cholecalciferol, 25 mcg, Oral, [...] Date: 01/28/2025 PCP: Gibson Roth (Inactive) Room#: W5-601/W8-590 B BRIEF HOSPITAL COURSE: 84-year-old male presented [...] States he had a trip to [place] couple days ago. Denies any cough, congestion, [...] Primary Emergency Contact: Zuleyka Nascimento Mobile Relation: Certification Officer Secondary Emergency Contact: Shaylee Nascimento Relation: Child Jeremy Sanchez DO Division of Hospitalist Medicine [facility] [1] Past Medical History: Diagnosis Date Acute [...] HOSPITAL) Presence of cardiac resynchronization therapy defibrillator (ORDER TRACER-D) 01/17/2022 PUD (peptic ulcer disease) Pulmonary embolism [...] Diet order placed while pending transfer to [facility]. This patient was seen as a hospital courtesy for improved patient care and care progression. Thank you for allowing me to participate in the medical care of your patient. OSCAR INTERVENTIONS [x] Care Coordination & Progression [] Nursing Function [x] Orders Placed [] Symptom Assessment [] Patient Experience [] Patient / Caregiver Conversation documented in this [facility]07-14-2025 Plan of care note* Care Plan - Marshall lGez RN - 01/31/2025 9:20 PM EDT Problem: [...] Interventions Goal: Promote nutritional intake Outcome: Progressing [facility] [id number] Note* Care Coordination - Nelly Pisano RN - 01/31/2025 11:55 AM EDT Care Managment Initial Assessment Date: 01/31/2025 Patient Name: Megan Nascimento : 1940 Patient Information Source of Information: Patient Cognition/Language: WFL - Within Functional Limits Permission given to speak with patient member services representative/caregiver as indicated: Yes Confirmation of Payer with patient/family: Yes Payer Name: [facility] Medicare advantage [place]: No Confirmation of Primary Care Physician: Confirmed [...] Alone Support Systems: Children, Family members, Friends/neighbors, tour manager/social work faculty member, Home carestaff Activities of Daily Living Ambulation: [...] Walker DME Provider: His daughter is his care trainer Patient's Goal/Discharge Plan Patient expects to be [...] follow for needs. . Nelly Pisano RN [facility] HospitalVhijde01-83-1273 Note* Care Coordination - Nelly Pisano RN - 01/31/2025 11:55 AM EDT Care Managment Initial Assessment Date: 01/31/2025 Patient Name: Megan Nascimento : 1940 Patient Information Source of Information: Patient Cognition/Language: WFL - Within Functional Limits Permission given to speak with patient member services representative/caregiver as indicated: Yes Confirmation of Payer with patient/family: Yes Payer Name: [facility] Medicare advantage [place]: No Confirmation of Primary Care Physician: Confirmed [...] Alone Support Systems: Children, Family members, Friends/neighbors, tour manager/social work faculty member, Home carestaff Activities of Daily Living Ambulation: [...] Walker DME Provider: His daughter is his care trainer Patient's Goal/Discharge Plan Patient expects to be [...] follow for needs. . Nelly Pisano RN [facility] HospitalKnffga21-65-4002 Nurse Note* Saundra Vinson RN - 01/31/2025 [...] care given). Prevention Measures in place, including: Hinton sheet with pillows (in place), Pt declined Bilateralfoam heel protectors, off loading heels on pillows, Sacral foam and, Zinc/Moisture Barrier ointment. Moisture absorbant pad (in place), Bed Alarm On. Skin Care precaution order set in place d/t Simon score 18 on 01/28/2025. Dietitian consult in place. PT consult NA Simon > 3. 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 Will continue to follow pt. Please Voicera for any questions or concerns. Saundra Vinson, RN, BSN [facility] [id number] [facility] Cardiology /Electrophysiology Progress Note HPI / Interval History: Pt is a 84 year old male with a PMH significant for chronic HFrEF, NICM, s/p ORDER TRACER-D, CKD IV, HTN, DVT/PE, diabetes who presented to [facility] on 01/28/25 secondary to concern for [...] restriction #HTN -SBP 120-130s. Continue GDMT #S/p ORDER TRACER-D -Following in our device clinic, last cardiac device check with WELT STITCHER=98%, no events Addendum 1350: labs reviewed for stable renal function (scr 1.9) on IV diuresis. K+ repleted Medications: Scheduled Meds[1] Infusion Medications: Continuous Meds[2] Physical Examination: Vitals: 01/30/25 2325 01/31/25 0348 01/31/25 0522 01/31/25 0816 BP: 118/64 134/80 125/68 BP Location: Left arm Patient Position: Lying Pulse: 74 84 76 Resp: 18 Temp: 36 ?C (96.8 ?F) 36.1 [...] 1.84* 2.08* 1.78* 1.95* Recent Labs 01/29/25 0601/29/25 17101/30/25 1539 WBC 4.8 5.3 5.0 HGB 13.7 [...] EFBP, PLVEF, LVEFPHYS, LVEF2D, EF Dena Curtis, CHLOE - MACHINE HAND Date Of Service 01/31/2025 [1] cholecalciferol, 25 mcg, Oral, Ngoc (more content not included)...[facility] [id number] NoteAttending Supervising Physician's Attestation Statement for Progress [...] due to renal dysfun (more content not included)...[facility]07-14-2025 Plan of care note* Care Plan - [...] Interventions Goal: Promote nutritional intake Outcome: Progressing [facility] [id number] Plan of care note* Care Plan - [...] low, brakes on, call light in reach. [facility]07-13-2025 [facility] Cardiology /Electrophysiology Progress Note HPI / Interval History: Pt is a 84 year old male with a PMH significant for chronic HFrEF, NICM, s/p ORDER TRACER-D, CKD IV, HTN, DVT/PE, diabetes who presented to [facility] on 01/28/25 secondary to concern for [...] electrolytes consider increase in dose tomorrow #S/p ORDER TRACER-D -Following in our device clinic, last cardiac device check with WELT STITCHER=98%, no events Cardiology will continue to follow. [...] Of Service 01/30/2025 [1 (more content not included)...[facility]07-13-2025 NoteAttending Supervising Physician's Attestation Statement for Progress [...] taken off Spirolactone d (more content not included)...[facility]07-12-2025 Plan of care note* Care Plan - [...] Goal: Free from fall injury Outcome: Progressing [facility] [id number] Consult note* Triston Garduno MD - 01/29/2025 8:15 AM EDTAssociated Order(s): IP CONSULT TO CARDIOLOGY [facility] [place] [facility] Cardiology /Electrophysiology Consult Note Reason for Consult/Chief Complaint: Dyspnea Referring provider: Dr. Hall Established reach truck operator: Dr. Roth History of Present Illness: Megan Nascimento is a 84 y.o. 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 Initially presented at [facility] but transferred here for further [...] NICM HFimpEF (EF 20%--41% 2021), status post ORDER TRACER-D placement - Continue diuresis with IV furosemide [...] ejection fraction, hypertension who who presented to [facility] with a chief complaint of shortness of breath and volume overload. He was seen by Dr. Lund yesterday and transferred here to [facility] due to lack of beds. IV [...] Hoffman MD, PhD Advanced Heart Failure Cardiology [facility] [place] 1:12 PM 01/29/25 [facility] [employer] Work Phone: 1(896) 464-278007-12-2025 Consult note* Triston Garduno MD - 01/29/2025 8:15 AM EDTAssociated Order(s): IP CONSULT TO CARDIOLOGY [facility] Cardiology /Electrophysiology Consult Note Reason for Consult/Chief Complaint: Dyspnea Referring provider: Dr. Hall Established reach truck operator: Dr. Roth History of Present Illness: Megan Nascimento is a 84 y.o. 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 Initially presented at [facility] but transferred here for further [...] NICM HFimpEF (EF 20%--41% 2021), status post ORDER TRACER-D placement - Continue diuresis with IV furosemide [...] No results found for: TROPDELTSEC Recent Labs 01/28/2523701/29/25 0606 NA 141 141 K 4.2 2.8* [...] hours. Lab Results Component Value Date FERRITIN 07/25/2020 Radiology: CXR: personally reviewed: Cardiac Tests [...] 01/29/2025 1:12 PM EDT Associated attestation - Donoavn Hoffman MD - 01/29/2025 1:12 PM EDT I, Dr. Donovan Hoffman, saw and evaluated the patient in 5-1/W B. I personally obtained the velazquez and [...] ejection fraction, hypertension who who presented to [facility] with a chief complaint of shortness of breath and volume overload. He was seen by Dr. Lund yesterday and transferred here to [facility] due to lack of beds. IV [...] Hoffman MD, PhD Advanced Heart Failure Cardiology [facility] [place] 1:12 PM 01/29/25 * Wm Lund MD - 01/28/2025 9:09 AM EDTAssociated Order(s): IP CONSULT TO CARDIOLOGY CARDIOLOGY CONSULTATION Assessment/Plan: Cardiovascular Diagnoses # Acute on chronic heart failure with reduced ejection fraction: Nonischemic cardiomyopathy. BNP 23.3k. Dry weight in chart review is roughly 180lbs, presenting at 195lbs, target for diuresis is thus15 lbs. S/p 40mg IV furosemide at 0257. Cath 2019 with no significant disease, thus felt NICM. LastEF 41% from 2021. He is warm and mentating well. # Stage 4 CKD: Renal function is at baseline # History of PE: Not chronically maintained on OAC Recommendations: - IV furosemide 80mg BID - Strict I/O and BID BMP while IV diuresing - Dry weight target is 180lbs - Patient will be transferring to [facility], will put on the follow-up HF [...] in the 24 hours ending 01/28/25 0910 @[id number]@ Gen: Comfortable, pleasant, on room air Neck: JVP up to angle of mandible CV: Regular, soft systolic murmur Pulm: Bilateral crackles Abd: Soft/NT Neuro: Nonfocal Extrem: Bilateral pitting edema up to above the knees Pertinent Labs: ABGs: No results found for: PHART, PO2ART, [id number] INR: No results for input(s): INR in the last 72 hours. Cardiac Injury Profile: No results for input(s): CKTOTAL, CKMB, CKMBINDEX, TROPONINI in thelast 72 hours. Lipid Profile:No results found for: TRIG, HDL, LDLCALC, CHOL Hemoglobin A1C: No results found for: HGBA1C Wm Lund MD Cardiology [facility] [place] 9:10 AM 01/28/25 documented in this [facility]07-12-2025 NoteAttending Supervising Physician's Attestation Statement for [...] States he had a trip to [place] couple days ago. Denies any cough, congestion, [...] HF following Current diuresi (more content not included)...[facility]07-12-2025 Plan of care note* Care Plan - [...] Goal: Free from fall injury Outcome: Progressing [facility] [address] [id number] History and physical note* Rogelio Adams MD [...] 469 ms QTC Interval 507 ms P Low[place] 55 degrees QRS [place] 223 degrees T Wave [place] 37 degrees [place] Interval 264 ms Basic metabolic panel Collection [...] Problems: Presence of cardiac resynchronization therapy defibrillator (ORDER TRACER-D) HTN (hypertension) Follicular non-Hodgkin's lymphoma (HCC) CKD 4 Hx PE Following with HF team Diuresis as able Following BMP Will check PVR Cont supportive custodial medications otherwise Due to the review of [...] Strict intake and output Inpatient consult to Cardiology--[facility]; CHF exacerbation Inpatient consult to Wound [...] HOSPITAL) Presence of cardiac resynchronization therapy defibrillator (ORDER TRACER-D) 01/17/2022 PUD (peptic ulcer disease) Pulmonary embolism [...] Daily, Moises Adan MD, 25 mcg at [id number] cyanocobalamin (Vitamin B-12) tablet 1,000 mcg, 1,000 [...] EC tablet 40 mg, 40 mg, Oral, qACOX WALNUT LAWNMoises MD sacubitril-valsartan (Entresto) 24-26 MG per tablet [...] Adan MD, 20 mg at 01/28/[address] HospitalZzsdky36-72-5687 NoteHistory and Physical Admit Date: 01/28/2025 PCP: [...] 469 ms QTC Interval 507 ms P [place]ell 55 degrees QRS [place] 223 degrees T Wave [place] 37 degrees [place] Interval 264 ms Basic metabolic panel Collection [...] PRO BNP Collection T (more content not included)...[facility]07-11-2025 History and physical note* Rogelio Adams MD [...] 469 ms QTC Interval 507 ms P [place] 55 degrees QRS [place] 223 degrees T Wave [place] 37 degrees [place] Interval 264 ms Basic metabolic panel Collection [...] Problems: Presence of cardiac resynchronization therapy defibrillator (ORDER TRACER-D) HTN (hypertension) Follicular non-Hodgkin's lymphoma (HCC) CKD 4 Hx PE Following with HF team Diuresis as able Following BMP Will check PVR Cont supportive custodial medications otherwise Due to the review of [...] Strict intake and output Inpatient consult to Cardiology--[facility]; CHF exacerbation Inpatient consult to Wound [...] HOSPITAL) Presence of cardiac resynchronization therapy defibrillator (ORDER TRACER-D) 01/17/2022 PUD (peptic ulcer disease) Pulmonary embolism (HCC) Pulmonary fibrosis ([facility]) [...] tablet 2.5 mg, 2.5 mg, Oral, qAM , Moises Adan MD glucagon (human recombinant) injection [...] mg at 01/28/25 0934 documented in this [facility]07-11-2025 Emergency department Note* Aleksandra York RN - 01/28/2025 4:08 PM EDT Report given to [facility] for transfer to [facility] HospitalHjdlxj79-89-3931 Emergency department Note* Aleksandra York RN - 01/28/2025 4:08 PM EDT [facility] * Aleksandra York RN - 01/28/2025 [...] at rest. Denies chest pain. 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 Denies chest pain. 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 This patient was seen as a hospital courtesy for improved patient care and care progression. Thank you for allowing me to participate in the medical care of your patient. OSCAR INTERVENTIONS [x] Care Coordination & Progression [] Nursing Function [x] Orders Placed [] Symptom Assessment [] Patient Experience [] [facility] / [facility]giver [facility] Note* Aleksandra York RN - 01/28/2025 12:30 PM EDT 250 cc of urine empted this am, pt wheeled to restroom, voided and stooled. [facility] [id number] Telephone encounter Note* Telephone Encounter - Dania Mcknight RN - 01/28/2025 9:40 AM EDT ----- Message from Ralph Roth MD sent at 01/26/2025 5:16 PM EDT ----- Please call Friday for update, thank you [place] [id number] Miscellaneous Notes* Telephone Encounter - Dania Mcknight RN - 01/28/2025 9:40 AM EDT ----- Message from Ralph Roth MD sent at 01/26/2025 5:16 PM EDT ----- Please call Friday for update, thank you documented in this [facility]07-11-2025 Consult note* Wm Lund MD - [...] 180lbs - Patient will be transferring to [facility], will put on the follow-up HF [...] in the 24 hours ending 01/28/25 0910 @[id number]@ Gen: Comfortable, pleasant, on room air Neck: JVP up to angle of mandible CV: Regular, soft systolic murmur Pulm: Bilateral crackles Abd: Soft/NT Neuro: Nonfocal Extrem: Bilateral pitting edema up to above the knees Pertinent Labs: ABGs: No results found for: PHART, PO2ART, CEX3AIM INR: No results for input(s): INR in the last 72 hours. Cardiac Injury Profile: No results for input(s): CKTOTAL, CKMB, CKMBINDEX, TROPONINI in thelast 72 hours. Lipid Profile:No results found for: TRIG, HDL, LDLCALC, CHOL Hemoglobin A1C: No results found for: HGBA1C Wm Lund MD [facility] [place] 9:10 AM 01/28/25 [employer] Work Phone: [phone] 505-157607-11-2025 NoteCARDIOLOGY CONSULTATION Assessment/Plan: Cardiovascular Diagnoses # Acute [...] 180lbs - Patient will be transferring to [facility], will put on the follow-up HF [...] in the 24 hours ending 01/28/25 0910 @[id number]@ Gen: Comfortable, pleasant, on room air Neck: JVP up to angle of mandible CV: Regular, soft systolic murmur Pulm: Bilateral crackles Abd: Soft/NT Neuro: Nonfocal Extrem: Bilateral pitting edema up to above the knees Pertinent Labs: ABGs: No results found for: PHART, PO2ART, DRD9XUP INR: No results for input(s): INR in the last 72 hours. Cardiac Injury Profile: No results for input(s): CKTOTAL, CKMB, CKMBINDEX, TROPONINI in the last 72 hours. Lipid Profile:No results found for: TRIG, HDL, LDLCALC, CHOL Hemoglobin A1C: No results found for: HGBA1C Wm Lund MD Cardiology [facility]. [facility] [place] 9:10 AM 01/28/25[facility]07-11-2025 Emergency department Note* Lucas Fernandez RN - 01/28/2025 2:17 AM EDT No cardiac monitoring available at this time. Provider aware [id number] Physician Emergency department Note* Latricia Landa DO [...] at rest. Denies chest pain. 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 Denies chest pain. Seen at [facility] yesterday and was noted to be [...] (HCC) Presence of cardiac resynchronization therapy defibrillator (ORDER TRACER-D) 01/17/2022 PUD (peptic ulcer disease) Pulmonary embolism [...] a day Latricia Landa DO 01/28/[address] HospitalXibxrs50-42-0664 History of Present illness Narrative* Ralph Roth MD - 01/26/2025 3:20 PM EDT Images from the original note were not included. [facility] CARDIOLOGY - [place] [address] [address] [facility] [address] Dept: [phone] Dept Loc: [phone] DATE of SERVICE:01/26/25 TIME of SERVICE: 3:59 [...] so he went to the hospital in [place]. Before he might have diverticulitis. His creatinine [...] ventricular pacing Focused cardiac ultrasound: Not done Chemical Laboratory Assistant present for focused cardiac ultrasound: Not applicable [...] HOSPITAL) Presence of cardiac resynchronization therapy defibrillator (ORDER TRACER-D) 01/17/2022 PUD (peptic ulcer disease) Pulmonary embolism [...] 180 tablet, Rfl: 3 documented in this [facility]05-25-2025 Radiology Diagnostic study note [facility] Imaging Services [address], [place] [id number] Abdomen/Pelvis without Cont MR#: [id number] Acct: [id number] Name: MEGAN NASCIMENTO Rep #: [id number] : 1940 M 84 From: Pet er Darius MULLINS PCP: Dr. Rigoberto Durand MD Status: REG E R Study:Abdomen/Pelvis without Cont Date of Exa m: 12/12/24 Exam# [id number] Ordering Dr: Rena Lorenz ADDENDUM by Dr. [...] to the right lower quadrant. Reading Location: [facility] 12/12/241434 Date cc: Dr. Rigoberto [...] lower chance of developing HCC. [facility] CC: Dr. Rigoberto Durand MD; DASIA Faye ~ Tobacco Grower: Signed [facility]03-05-2025 History of Present illness Narrative* Ralph Roth MD - 09/22/2024 3:00 PM EST [facility] Telehealth Cardiology Note DATE of [...] HOSPITAL) Presence of cardiac resynchronization therapy defibrillator (ORDER TRACER-D) 01/17/2022 PUD (peptic ulcer disease) Pulmonary embolism [...] redirect to the Timeline version of the [facility] SmartLink. Limited Telehealth exam Constitutional: [x]Alert []Oriented [...] him. Will get him in for a uqii-ss-hpgp visit in about 3 months. Patient was seen today via Telehealth by agreement and consent. I used the following Telehealth technology: Audio capability only. Total length of call 15 minutes minutes. The patient was offered andadvised video for a more comprehensive evaluation, but the patient declined or was unable to use video. Patient location: [place] Patient Location: Home. This patient encounter is [...] that they are currently in the state [facility]. If the patient dominick minor, permission has been obtained by the parent or guardian for the patient to receive medical care at this visit. documented in this encounterSKettering Health SpringfieldMsxjbh1939 Telephone encounter Note* Telephone Encounter - Di Hernández RN - 07/28/2024 9:25 AM EST ----- Message from Gibson Lamb sent at 07/28/2024 8:57 AM EST ----- Regarding: RE: Clinic check Called and spoke with the patient regarding both appointments (dates/time) for 09-22-2024 at the [facility]. ----- Message ----- From: Di Hernández RN [...] To: Di Hernández RN Subject: Clinic check [facility]. Mr. Nascimento called this morning to R/S his in office device check appointment due to the weather, which was scheduled with you this morning. He was also seeing Dr. Roth. He R/S Brenda's appointment for early September 2024. Do you want him to just send a remote? And or I can R/S him with you at the [place] office on 08-04-2024 @ 10:30. [address] [id number] Miscellaneous Notes* Telephone Encounter - Di Hernández RN - 07/28/2024 9:25 AM EST ----- Message from Gibson S sent at 07/28/2024 8:57 AM EST ----- Regarding: RE: Clinic check Called and spoke with the patient regarding both appointments (dates/time) for 09-22-2024 at the [facility]. ----- Message ----- From: Di Hernández RN [...] can R/S him with you at the [place] office on 08-04-2024 @ 10:30. documented in this encounterSKettering Health SpringfieldRidfpz25-71-1072 Telephone encounter Note* Telephone Encounter - Bhargavi Pena RN - 07/20/2024 10:48 AM EST JAYMIE Renteria APRN-MACHINE HAND 01/09/24, labs 01/09/24. Rx pended. [facility] [id number] Miscellaneous Notes* Telephone Encounter - Bhargavi Pena RN - 07/20/2024 10:48 AM EST JAYMIE Renteria APRN-MARIIA 01/09/24, labs 01/09/24. Rx pended. documented in this [facility]11-27-2024 Telephone encounter Note* Telephone Encounter - Katie Glass RN - 06/16/2024 8:49 AM EST Last OV with Everton Freidmanlak on 01/09/24 [place] [id number] Miscellaneous Notes* Telephone Encounter - Katie Glass RN - 06/16/2024 8:49 AM EST Last OV with ErnieLeo FriedmanDexter on 01/09/24 * Telephone Encounter - Shannan Mccartney - 06/15/2024 3:41 PM EST Patient called [facility] and wanted to see if he could fill his cialis through our pharmacy, He does nothave refills at [facility] pharmacy for this and It the last prescription that was sent to [facility] [place] has[place] refills on it. Patient requested that we ask the cardio provider that prescribed it last time for refills. If appropriate please send prescription to [facility] pharmacy, Rx pended for review, Thank you! documented in this [facility]11-26-2024 Telephone encounter Note* Telephone Encounter - Shannan Mccartney - 06/15/2024 3:41 PM EST Patient called [facility] and wanted to see if he could fill his cialis through our pharmacy, He does nothave refills at [facility] pharmacy for this and It the last prescription that was sent to [facility] [place] has[place] refills on it. Patient requested that we ask the cardio provider that prescribed it last time for refills. If appropriate please send prescription to [facility] pharmacy, Rx pended for review, Thank you! [place] [id number] Telephone encounter Note* Telephone Encounter - Katie Glass RN - 06/15/2024 12:14 PM EST Last OV with Everton Renteria on 01/09/24 BMP 01/09/[address] HospitalQuzdpf75-30-7204 Miscellaneous Notes* Telephone Encounter - Katie Glass RN - 06/15/2024 12:14 PM EST Last OV with Everton Renteria on 01/09/24 BMP 01/09/24 documented in this encounterSKettering Health SpringfieldGpklxi22-76-5270 Telephone encounter Note* Telephone Encounter - Ralph Roth MD - 03/20/2024 8:43 AM EDT There is very little difference between the vasodilators sildenafil and tadalafil. I will make the switch and discuss it with him at my next visit. [facility] [id number] Miscellaneous Notes* Telephone Encounter - Ralph Roth MD - 03/20/2024 8:43 AM EDT There is very little difference between the vasodilators sildenafil and tadalafil. I will make the switch and discuss it with him at my next visit. * Telephone Encounter - Shannan Mccartney - 03/19/2024 12:44 PM EDT [facility]; he stated he [...] therapy change appropriate please send prescription to [facility] pharmacy, Thank you so much! documented in this [place] [id number] Telephone encounter Note* Telephone Encounter - Shannan Mccartney - 03/19/2024 12:44 PM EDT [facility]; he stated he [...] therapy change appropriate please send prescription to [facility] pharmacy, Thank you so much! [place] [id number] Telephone encounter Note* Telephone Encounter - Katie Glass RN - 03/18/2024 2:50 PM EDT Last OV with Everton Renteria on 01/09/24 BMP 01/09/[address] HospitalXyjidv13-84-2691 Miscellaneous Notes* Telephone Encounter - Katie Glass RN - 03/18/2024 2:50 PM EDT Last OV with Everton Renteria on 01/09/24 BMP 01/09/24 * Telephone Encounter - Inna Kaur - 03/18/2024 12:25 PM EDT Refill requested. RX pended. Thanks! documented in this [place] [id number] Telephone encounter Note* Telephone Encounter - Inna Kaur - 03/18/2024 12:25 PM EDT Refill requested. RX pended. Thanks! [facility] [id number] History of Present illness Narrative* Petra Renteria, LIFE INSURANCE AGENT - MACHINE HAND - 01/09/2024 10:30 AM EDT Images from the original note were not included. [facility] Office Note DATE of SERVICE: [...] transthoracic echo February 2022. He has a ORDER TRACER-D in place, monitored regularly by the device [...] me he had a recent admission to [facility]. He tells me he had gone to his [employer]osiery [employer], had toenails clipped, and then developed an [...] HOSPITAL) Presence of cardiac resynchronization therapy defibrillator (ORDER TRACER-D) 01/17/2022 PUD (peptic ulcer disease) Pulmonary embolism [...] giving any additional recommendations. -He is presently [place] Heart Association functional class II, stage C. 2. ORDER TRACER D device in place, monitored regularly by [...] basis. Petra Renteria APRN/MARIIA documented in this [facility]2024 Telephone encounter Note* Telephone Encounter - Coby Martínez RN - 12/22/2023 3:58 PM EDT OV 03/12/23 [facility] [id number] Miscellaneous Notes* Telephone Encounter - Coby Martínez RN - 12/22/2023 3:58 PM EDT OV 03/12/23 documented in this encounterSKettering Health SpringfieldSnsgft53-30-2352 Telephone encounter Note* Telephone Encounter - Dania Mcknight RN - 12/19/2023 1:52 PM EDT RBC 03/12/23 Results Test Name Value Interpretation Reference Range Facility Basic Metabolic Profile (BMP) on 12-02-2023 BUN/CRE 16.8 RATIO Normal 10-20 [facility] Comment on above: Performed By: #### L501.080 #### [facility] [address] [place], [address] CA,Total 8.7 mg/dL Normal 8.5-10.1 [facility] Comment on above: Performed By: #### L501.080 #### [facility] [address] [place], [address] Chloride [Moles/Vol] 111 mmol/L High 98-107 [facility] Comment on above: Performed By: #### L501.080 #### [facility] [address] [place], [address] CO2 [Moles/Vol] 26.0 mmol/L Normal 21.0-32.0 [facility] Comment on above: Performed By: #### L501.080 #### [facility] [address] [place], [address] Creatinine [Mass/Vol] 2.32 mg/dL High 0.70-1.30 [facility] Comment on above: Result Comment: The validity of the calculated GFR GFRAA in patients over 70 years has not been determined. Clinical correlation is essential. Performed By: #### L501.080 #### [facility] [address] [place], [address] ECRCL 25.36 ml/min Normal [facility] Comment on above: Performed By: #### L501.080 #### [facility] [address] [place], [address] EST GFR - AA 35 mL/min Low >60 [facility] Comment on above: Result Comment: GFR Calc Performed By: #### L501.080 #### [facility] [address] [place], [address] GAP 4 Low 5-15 [facility] Comment on above: Performed By: #### L501.080 #### [facility] [address] [place], [address] GFR/1.73 sq M.predicted among non-blacks MDRD (S/P/Bld) [Vol rate/Area] 29 mL/min/ Low >60 [facility] Comment on above: Result Comment: Non- GFR Calc Performed By: #### L501.080 #### [facility] [address] [place], [address] Glucose [Mass/Vol] 56 mg/dL Low 74-106 [facility] Comment on above: Performed By: #### L501.080 #### [facility] [address] [place], [address] Potassium [Moles/Vol] 3.9 mmol/L Normal 3.5-5.1 [facility] Comment on above: Performed By: #### L501.080 #### [facility] [address] [place], [address] Sodium [Moles/Vol] 141 mmol/L Normal 136-145 [facility] Comment on above: Performed By: #### L501.080 #### [facility] [address] [place], [address] Urea nitrogen [Mass/Vol] 39 mg/dL High 7-18 [facility] Comment on above: Performed By: #### L501.080 #### [facility] [address] [place], [address] HospitalHjbhpv90-22-6801 Miscellaneous Notes* Telephone Encounter - Dania Mcknight RN - 12/19/2023 1:52 PM EDT RBC 03/12/23 Results Test Name Value Interpretation Reference Range Facility Basic Metabolic Profile (BMP) on 12-02-2023 BUN/CRE 16.8 RATIO Normal 10-20 [facility] Comment on above: Performed By: #### L501.080 #### [facility] [address] [place], [address] CA,Total 8.7 mg/dL Normal 8.5-10.1 [facility] Comment on above: Performed By: #### L501.080 #### [facility] [address] [place], [address] Chloride [Moles/Vol] 111 mmol/L High 98-107 [facility] Comment on above: Performed By: #### L501.080 #### [facility] [address] [place], [address] CO2 [Moles/Vol] 26.0 mmol/L Normal 21.0-32.0 [facility] Comment on above: Performed By: #### L501.080 #### [facility] [address] [place], [address] Creatinine [Mass/Vol] 2.32 mg/dL High 0.70-1.30 [facility] Comment on above: Result Comment: The validity of the calculated GFR GFRAA in patients over 70 years has not been determined. Clinical correlation is essential. Performed By: #### L501.080 #### [facility] [address] [place], [address] ECRCL 25.36 ml/min Normal [facility] Comment on above: Performed By: #### L501.080 #### [facility] [address] [place], [address] EST GFR - AA 35 mL/min Low >60 [facility] Comment on above: Result Comment: GFR Calc Performed By: #### L501.080 #### [facility] [address] [place], [address] GAP 4 Low 5-15 [facility] Comment on above: Performed By: #### L501.080 #### [facility] [address] [place], [address] GFR/1.73 sq M.predicted among non-blacks MDRD (S/P/Bld) [Vol rate/Area] 29 mL/min/ Low >60 [facility] Comment on above: Result Comment: Non- GFR Calc Performed By: #### L501.080 #### [facility] [address] [place], [address] Glucose [Mass/Vol] 56 mg/dL Low 74-106 [facility] Comment on above: Performed By: #### L501.080 #### [facility] [address] [place], [address] Potassium [Moles/Vol] 3.9 mmol/L Normal 3.5-5.1 [facility] Comment on above: Performed By: #### L501.080 #### [facility] [address] [place], [address] Sodium [Moles/Vol] 141 mmol/L Normal 136-145 [facility] Comment on above: Performed By: #### L501.080 #### [facility] [address] [place], [address] Urea nitrogen [Mass/Vol] 39 mg/dL High 7-18 [facility] Comment on above: Performed By: #### L501.080 #### [facility] [address] [place], [address] documented in this [facility]11-22-2023 Telephone encounter Note* Telephone Encounter - Dania Mcknight RN - 06/11/2023 3:30 PM EST PC to patient. LMOM with OSCAR recommendations. I asked for a call back to further discuss. [facility] HospitalOhooeo61-04-1552 Miscellaneous Notes* Telephone Encounter - Dania Mcknight RN - 06/11/2023 3:30 PM EST PC to patient. LMOM with OSCAR recommendations. I asked for a call back to further discuss. * Telephone Encounter - Dania Mcknight RN - 06/11/2023 2:35 PM EST RBC 03/12/23 BMP 09/10/22 documented in this [facility]11-22-2023 Telephone encounter Note* Telephone Encounter - Dania Mcknight RN - 06/11/2023 2:35 PM EST RBC 03/12/23 BMP 09/10/[address]Zjzess00-00-1088 Miscellaneous Notes* Telephone Encounter - Anali Moore - 05/12/2023 2:49 PM EDT Not our pt please refuse and close. Anali Moore documented in this encounterTr[facility]08-23-2023 History of Present illness Narrative* Ralph Roth MD - 03/12/2023 9:00 AM EDT Images from the original note were not included. [facility] [address] [place] [address] [facility] [address] Dept: [phone] Dept Loc: [phone] DATE of SERVICE:03/12/23 TIME of SERVICE: 8:47 [...] failure with reduced ejection fraction) (CMS/HCC) (HCC) 09/22/2020 Bladder cancer (HCC) CHF (congestive heart failure) (CMS/HCC) ([facility]) Chronic HFrEF (heart failure with reduced ejection fraction) ([facility]/HCC) ([facility]) 09/21/2020 Chronic kidney disease DM (diabetes mellitus) (HCC) DM (diabetes mellitus) ([facility]) DVT (deep venous thrombosis) ([facility]) ED (erectile dysfunction) Follicular non-Hodgkin's lymphoma (HCC) GERD (gastroesophageal reflux disease) GERD (gastroesophageal reflux disease) HTN (hypertension) HTN (hypertension) Hyperlipidemia Left bundle branch block 09/11/2020 Non-ischemic cardiomyopathy ([facility]/HCC) ([facility]) Presence of cardiac resynchronization therapy defibrillator (ORDER TRACER-D) 01/17/2022 PUD (peptic ulcer disease) Pulmonary embolism [...] heart failure is compensated, I would estimate [place] Heart Association class II, stage C, warm [...] people do get relief of pain from hospice care sales consultant or acupuncture. If he wants to pursue those, thatis reasonable. We need to avoid opioids and NSAIDs. Educationally, reviewed all this with him and we will see him back in 6 months with one of our nurse practitioners or physician assistants and withme in a year. documented in this [facility]08-21-2023 Miscellaneous Notes* Telephone Encounter - Brinda [...] and advise. Anali Moore documented in this encounterTrinity [facility] System08-16-2023 Telephone encounter Note * Telephone Encounter - [...] 03-04-2023 Cholesterol [Mass/Vol] 287 mg/dL High 200 [facility] Comment on above: Result Comment: <200 mg/dL Desirable 200-240 mg/dL Borderline >240 mg/dL High Risk Performed By: #### L500.2500, L500.4100 #### [facility] [address] [facility] [address] Cholesterol in HDL [Mass/Vol] 27 mg/dL Low [facility] Comment on above: Result Comment: The drugs N-Acetylcysteine and Metamizole may falsely depress this assay. Reference Range HDL <40 mg/dL Low HDL Cholesterol HDL >or= 60 mg/dL High HDL Cholesterol Performed By: #### L500.2500, L500.4100 #### [facility] [address] [place], [address] LDL TNP Normal 0-130 [facility] Comment on above: Performed By: #### L500.2500, L500.4100 #### [facility] [address] [place], [address] Triglyceride [Mass/Vol] 576 mg/dL High [facility] Comment on above: Result Comment: The drugs N-Acetylcysteine and Metamizole may falsely depress this assay. TRIGLYCERIDE IS GREATER THAN 400 mg/dL. LDL RESULT IS INVALID AND WILL NOT BE REPORTED. Serum Triglycerides Reference Interval Normal <150 mg/dL Borderline high 150 - 199 mg/dL High 200 - 499 mg/dL Very High > or = 500 mg/dL Performed By: #### L500.2500, L500.4100 #### [facility] [address] [facility] [address] VLDL TNP Normal 5-40 [facility] Comment on above: Performed By: #### L500.2500, L500.4100 #### [facility] [address] [place], [address] [facility] Omtxde35-07-2688 Miscellaneous Notes* Telephone Encounter - Dania Mcknight [...] resume per PCP receommendations and will NICHOLAS RBC. Reminded him of appt next week. He verbalized understanding. Lipid Profile on 03-04-2023 Cholesterol [Mass/Vol] 287 mg/dL High 200 [facility] Comment on above: Result Comment: <200 mg/dL Desirable 200-240 mg/dL Borderline >240 mg/dL High Risk Performed By: #### L500.2500, L500.4100 #### [facility] [address] [place], [address] Cholesterol in HDL [Mass/Vol] 27 mg/dL Low [facility] Comment on above: Result Comment: The drugs N-Acetylcysteine and Metamizole may falsely depress this assay. Reference Range HDL <40 mg/dL Low HDL Cholesterol HDL >or= 60 mg/dL High HDL Cholesterol Performed By: #### L500.2500, L500.4100 #### [facility] [address] [place], [address] LDL TNP Normal 0-130 [facility] Comment on above: Performed By: #### L500.2500, L500.4100 #### [facility] [address] [place], [address] Triglyceride [Mass/Vol] 576 mg/dL High [facility] Comment on above: Result Comment: The drugs N-Acetylcysteine and Metamizole may falsely depress this assay. TRIGLYCERIDE IS GREATER THAN 400 mg/dL. LDL RESULT IS INVALID AND WILL NOT BE REPORTED. Serum Triglycerides Reference Interval Normal <150 mg/dL Borderline high 150 - 199 mg/dL High 200 - 499 mg/dL Very High > or = 500 mg/dL Performed By: #### L500.2500, L500.4100 #### [facility] [address] [place], [address] VLDL TNP Normal 5-40 [facility] Comment on above: Performed By: #### L500.2500, L500.4100 #### [facility] [address] [place], [place], [address] * Telephone Encounter - Marley Kc - [...] stop it, thank you documented in this [facility]08-16-2023 Telephone encounter Note* Telephone Encounter - Marley Kc - 03/05/2023 11:39 AM EDT PT has questions regarding restarting Rosuvastatin [address] [id number] History of Present illness Narrative* Petra Renteria APRN - MACHINE HAND - 09/10/2022 9:00 AM EST Images from the original note were not included. [facility] Cardiology Office Note DATE of SERVICE: [...] HFrEF (heart failure with reduced ejection fraction) ([facility]) ([facility]) 09/22/2020 Bladder cancer ([facility]) ([facility]) CHF (congestive heart failure) ([facility]) ([facility]) Chronic HFrEF (heart failure with reduced ejection fraction) ([facility]) ([facility]) 09/21/2020 Chronic kidney disease DM (diabetes mellitus) ([facility]) DM (diabetes mellitus) ([facility]) DVT (deep venous thrombosis) ([facility]) ED (erectile dysfunction) Follicular non-Hodgkin's lymphoma ([facility]) ([facility]) GERD (gastroesophageal reflux disease) GERD (gastroesophageal reflux disease) HTN (hypertension) HTN (hypertension) Hyperlipidemia Left bundle branch block 09/11/2020 Non-ischemic cardiomyopathy ([facility]) ([facility]) Presence of cardiac resynchronization therapy defibrillator (ORDER TRACER-D) 01/17/2022 PUD (peptic ulcer disease) Pulmonary embolism [...] and Plan: 1. Nonischemic cardiomyopathy-presently well compensated, [place] Heart Association functional class II, stage C [...] Follow-up-6 months and as needed. Petra Renteria APRN/MACHINE HAND documented in this [facility]02-03-2023 Telephone encounter Note* Telephone Encounter - [...] recommendations and reminder about f/u appt 09/10. [facility]02-02-2023 Telephone encounter Note* Telephone Encounter - Dania [...] Will D/W RBC about trial off statin. [facility]02-01-2023 Telephone encounter Note* Telephone Encounter - Ralph Roth MD - 08/21/2022 7:02 PM EST Please call and see if he is still on spironolactone. If he is, please have him stop it, thank you [facility]12-27-2022 Telephone encounter Note* Telephone Encounter - Dania Mcknight RN - 07/16/2022 11:04 AM EST PC to patient. LMOM to call office. [facility] [id number] Miscellaneous Notes* Telephone Encounter - Dania Mcknight [...] be weak? [id number] Telephone encounter Note* Telephone Encounter - Dania Mcknight RN - 07/11/2022 2:42 PM EST PC to pt. LMOM to call office. [facility] [id number] Telephone encounter Note* Telephone Encounter - Marley Kc - 07/11/2022 1:03 PM EST Patient asking if any of his medications would cause his legs to be weak? 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 He had 3-4+ bilateral lower extremity edema up to his hips and an 8 lb weight gain since his recent hospital discharge for elective ORDER TRACER-D. He was IV diuresed and transitioned back [...] Discharge Medications: Megan Nascimento Home Medication Instructions APOORVA:[id number] Printed on:09/26/20 1012 Medication Information albuterol (PROVENTIL) [...] mg by mouth ngoc (more content not included)...[facility] Discharge summary Author Shaun Taveras [facility] November 27, 2023 8:41am Note Date/Time November 27, 2023 7:55am [facility] Medical Records Department [address] [place] [address] Emergency Department Summary 11/27/23 MR#: [id number] Acct: [id number] Name: MEGAN NASCIMENTO Rep #:[id number] : [...] was brought to the hospital for evaluation [facility] Medical History Anticoagulant-induced bleeding Benign positional vertigo [...] PO DAILY 06/28/21 [History Last Taken Unknown] badtyjmwcezs-gdn-frdum acid-vit K-lycop 400 mcg-20 mcg-370 mcg tablet [...] 90.4 H Lymph % (Auto) 2.1 L [place] % (Auto) 4.0 Eos % (Auto) 0.4 [...] Clarity Clear Urine pH 5.0 Ur Specific [place] 1.015 Urine Protein Negative Urine Glucose (UA) [...] Signed: Alexi Eden MD at 8:32 EDT Reading Location ID and State: [facility] / [place] , Service support , Chest x-ray as interpreted by the emergency medicine physician reveals a hiatal hernia which is chronic in nature without acute infiltrate pneumothorax or pleural effusion Management Discussion w/another healthcare provider: Hospitalist Discharge Plan Triage Chief Complaint: Weakness ED Provider: Shaun Taveras Dx/Rx/DC Orders Clinical Impression: Generalized weakness, Leukocytosis, Rhabdomyolysis, Gfmln-sz-uzlhxhs kidney injury Prescriptions: No Action sucralfate 100 [...] Provider] - Disposition Disposition: Acute Care Hospital [facility] What to do if you have Problems For any increased pain, shortness of breath, bleeding, nausea or vomiting, chestpain, or any unexpected problems, contact your Primary Care Provider. Call [facility] ([phone]) or report to the closest Emergency Room. Call 911 if necessary. 11/27/23 0841 <Electronically signed by Shaun Taveras DO> Cosigner Signature (if applicable): CC: Dr. Rigoberto Durand MD ~ Signed [facility] Work Phone: Discharge summary Author Shaun Taveras [facility] Note Date/Time April 05, 2025 2:31am [facility] Medical Records Department [address] [place] [address] Emergency Department Summary 04/05/25 MR#: [id number] Acct: [id number] Name: MEGAN NASCIMENTO Rep #:[id number] : [...] downtime he was brought in for evaluation [facility] Medical History Chronic pain of toe of [...] 04/10 Unknown History tablet,extended release 24 hr wlksdmpdwnsk-dlp-edarh acid-vit 1 tab PO DAILY not on [...] that his safest option will be admission [facility] for continued monitoring as well as PT/OT evaluation with potentialplacement in rehab or care home. The family states the patient was in a rehab center roughly a year ago and did well. The patient states that he would prefer a rehab placement based on his progressive/recurrent weakness. Secondaryto his I contacted the hospitalist who agrees to accept the patient for continued treatment and care with potential care home/rehab placement regarding his weakness and inability to [...] 70.4 H Lymph % (Auto) 14.4 L [place] % (Auto) 11.2 H Eos % (Auto) [...] 449 H NT pro BNP II > 63437 H TSH 13.700 H Radiography Diagnostic Testing: Clinical Impression(s) from Imaging Studies Chest X-Ray 04/05/25 00:36 IMPRESSION: Moderate bilateral pleural effusions. Passive atelectatic airspace disease of the lower lobes. Moderate central pulmonary venous congestion. Moderate interstitial pulmonary congestion. AICD is in good position. Enlarged cardiac silhouette. Reading Location: [place] [address] Chest x-ray as interpreted by the emergency [...] MD [Primary Care Provider] - Print Language: Ukrainian Disposition Disposition: Acute Care Hospital [facility] What to do if you have Problems For any increased pain, shortness of breath, bleeding, nausea or vomiting, chestpain, or any unexpected problems, contact your Primary Care Provider. Call [facility] ([phone]) or report to the closest Emergency Room. Call 911 if necessary. 04/05/25 0231 <Electronically signed by Shaun Taveras DO> Cosigner Signature (if applicable): CC: Dr. Rigoberto Durand MD ~ Signed [facility] Work Phone: Discharge summary Author Kian [facility] Note Date/Time April 13, 2025 5:51am [facility] Medical Records Department [address] [place] [address] Emergency Department Summary 04/13/25 MR#: [id number] Acct: [id number] Name: MEGAN NASCIMENTO Rep #:[id number] : 1940 84 From: Kian Sexton PCP: Dr. Rigoberto Durand MD Status:REG E R Location: ED HPI HPI - Fall History of Present Illness Chief Complaint: Fall [facility] Medical History Hypothyroidism Chronic pain of toe of left [...] 04/10 Unknown History tablet,extended release 24 hr ddwsfgniujsv-ovj-nipuj acid-vit 1 tab PO DAILY not on pcp med list 06/28/21 Unknown History K-lycop 400 mcg-20 mcg-370 mcg tablet (Men's 50 Plus Multivitamin) tamsulosin 0.4 mg capsule 0.4 mg PO DAILY . 06/28/21 U nknown History pantoprazole 40 mg tablet,delayed 40 mg PO BID #120 ta bs 09/21/21 Unknown Rx release gabapentin 400 mg capsule 400 mg PO TID per md office list 11/27/23 Unknown History glimepiride 1 mg tablet 1 mg PO DAILY . 11/27/23 Unk nown History rosuvastatin 20 mg tablet 20 mg PO DAILY per pcp 11/26 Unknown History acetaminophen 325 mg tablet 650 mg (2 x 325 mg) PO Q6H PRN PRN 12/02/23 Unknown Rx Pain 1-10 Or Fever >100.7 #0 tabs ferrous sulfate 325 mg (65 mg 325 mg PO QODAY #30 tabs 04/07/25 Unknown Rx iron) tablet furosemide 40 mg tablet 40 mg PO BIDLX #0 tabs 04/07 Unknown Rx insulin lispro 100 unit/mL See Protocol subcut TIDAC # 0 mL 04/07/25 Unknown Rx subcutaneous pen (Humalog KwikPen (U-100) Insulin) sacubitril 24 mg-valsartan 26 mg 0.5 tab PO BID #0 tab s 04/07/25 Unknown Rx tablet sertraline 50 mg tablet 50 mg PO DAILY #0 tabs 04/07 Unknown Rx spironolactone 25 mg tablet 12.5 mg (1/2 x 25 mg) PO D AILY #0 04/07/25 Unknown Rx tabs Allergy/AdvReac Type Severity Reaction Status Date / Time No Known Allergies Allergy Verified 04/13/25 03:54 Family History Other Cancer Hypertension Surgical History History of permanent cardiac pacemaker placement Social History (Updated 04/07/25 @ 20:[address] Lv Moreno MD) household members: none and other details: Ex lives next door, she has back door entrance into his house. Smoking Status: Never smoker alcohol intake: never substance use type: does not use EXAM Physical Exam Const Vital Signs: 04/13/25 03:54 Temperature 97.6 F L Temperature Source Oral Pulse Rate 67 Respiratory Rate 16 Blood Pressure 105/78 Blood Pressure Mean 87 Pulse Ox 97 [facility] Narrative Medical decision making narrative: HISTORY OF PRESENT ILLNESS: Chief complaint: Fall, head trauma 84-year-old male history of type 2 diabetes, diabetic polyneuropathy, BPH, thyroidism, hypertension, heart failure, GI bleed presents with unwitnessed fall. There is a contusion noted to the right cheek and a skin tear noted to right hand. Per the transitional care unit patient also had hypoglycemia with aglucose in the 60s. REVIEW OF SYSTEMS: Pertinent positives: Fall, head trauma, hypoglycemia, shoulder pain Pertinent negatives: Chest pain, abdominal pain hip pain PHYSICAL EXAM: Nursing triage notes reviewed, Vital signs reviewed Constitutional: please see [facility] Primary Survey Airway: Intact Breathing: Bilateral breath sounds Circulation: Palpable bilateral femorals, Palpable bilateral radial, Palpable bilateral DP and Palpable bilateral PT Disability / Spine precautions GCS Score: Eye Openin Verbal Response: 5 Motor Response: 6 Secondary Survey Constitutional: Please see [facility] Head: Atraumatic, Midface stable, NO jaw malocclusion, No Cephalohematoma, and No Lacerations noted Eye: Pupils equal round and reactive to light, Extraocular muscles intact and Noperiorbital ecchymosis or stepoff, no evidence of entrapment ENT: Oropharynx clear, no lacerations, no hemotympanum, no raccoon eyes or stafford sign Cervical spine / Neck: No cervical spine bony tenderness, crepitance, or stepoffdeformity Trachea midline Lungs: Clear to auscultation, No asymmetric rise and No crepitus, no flail chest Cardiac: Regular rate and rhythm and No murmurs Abdomen: Soft, Nontender and No rebound Pelvis: Pelvis stable to compression : No evidence of genital injury Back: No midline bony tenderness to thoracic/lumbar/sacral spines Neuro: At baseline, intact strength and sensation in bilateral upper and lower extremities. 2+ patellar reflexes bilaterally. Extremities: NO gross Deformities. TTP of right shoulder. Otherwise no obviousabnormalities to the left upper extremity or bilateral lower extremities. Psych: Normal affect Skin: Small skin tear noted to the dorsum of the right hand near the first metacarpal phalangeal junction. No obvious laceration noted. No obvious bleeding or foreign bodies noted Nursing triage notes reviewed, Vital signs reviewed MEDICAL DECISION MAKING: Chief Complaint: please see HPI External records reviewed: Reviewed recent admission. [facility] to need for rehabilitation after a fall being found to have mild rhabdomyolysis. Factors affecting care: as per HPI Social determinants of health: none History obtained from others: none Consults: none [facility] Narrative: Patient was initially hemodynamically stable, afebrile and nontoxic-appearing. Primary secondary surveys concerning for the following differential I considered the following differential diagnosis: ICH, cervical spine injury, facial bone injury, right shoulder injury I obtained CT scans of the head, face and cervical spine as well as x-ray of theright shoulder to further determine if the patient was suffering from a life- threatening etiology. Gave Tylenol for initial pain control ALL IMAGES (IF OBTAINED) HAVE BEEN PERSONALLY REVIEWED AND INTERPRETED BY MYSELF. X-ray of the right shoulder was read to me personally myself showed no evidence of obvious bony abnormality. Radiology agreed my to interpretation CT scan of the head, cervical spine and face were negative for acute traumatic injury The patient and/or family, caregivers express understanding. The patient and/orfamily, caregivers agrees with the plan. Shared decision making: I will have a discussion with the patient and or visitors regarding risk/benefits of further testing or admission. They will be made aware of of the risk/benefits inherent in this decision they will be given the opportunity to voice understanding. Total critical care time today provided was at least 0 minutes. This excludes separately billable procedures. Critical care time (if documented) is secondary to the patient having high probability of clinically significant/life threatening deterioration in the patient's condition which required my urgent intervention. Impression: 1. Fall 2. Acute face contusion 3. Acute right shoulder contusion Dispo: Discharge home This note was generated with [employer] software. It may contain incorrectwords, spelling, and punctuation that were not noted in review of the chart prior to signing. Lab Data Labs: Laboratory Results - last 24 hr 04/13/25 04/13/25 04:00 05:24 POC Glucose 70 L 117 H Radiography Diagnostic Testing: Clinical Impression(s) from Imaging Studies Brain CT 04/13/25 04:18 IMPRESSION: No CT evidence for acute brain abnormality. Reading [facility] Cervical Spine CT 04/13/25 04:18 IMPRESSION: No CT evidence of an acute abnormality. Reading [facility] Facial/Sinus 04/13/25 04:18 IMPRESSION: Right preseptal/anterior facial soft tissue hematoma extending to the right cheek. No associated acute fracture. Reading [facility] Shoulder X-Ray 04/13/25 04:40 IMPRESSION: No radiographic evidence for acute abnormality. Reading [facility] Discharge Plan Triage Chief Complaint: Fall ED Provider: Kian Simons Dx/Rx/DC Orders Instructions: ED Skin Tear (Skin Avulsion) Prescriptions: No Action pantoprazole 40 mg tablet,delayed release (DR/EC) 40 mg PO BID Qty: 120 3RF metoprolol succinate 100 mg Tablet Extended Release 24 Hr 100 mg PO DAILY levothyroxine 75 mcg Tablet 75 mcg PO DAILY tamsulosin 0.4 mg Capsule 0.4 mg PO DAILY Men's 50 Plus Multivitamin 400-20-370 mcg Tablet 1 tab PO DAILY mecobalamin (vitamin B12) [B12 Active] 1,000 mcg Tablet,Chewable 1,000 mcg PO DAILY gabapentin 400 mg capsule 400 mg PO TID glimepiride 1 mg tablet 1 mg PO DAILY rosuvastatin 20 mg tablet 20 mg PO DAILY Rx Instructions: source is per pcp med list acetaminophen 325 mg Tablet 650 mg PO Q6H PRN PRN (Reason: Pain 1-10 Or Fever >100.7) Qty: 0 0RF spironolactone 25 mg Tablet 12.5 mg PO DAILY Qty: 0 0RF Rx Instructions: Hold for serum potassium more than 5.0 sertraline 50 mg Tablet 50 mg PO DAILY Qty: 0 0RF sacubitril-valsartan 24-26 mg Tablet 0.5 tab PO BID Qty: 0 0RF Rx Instructions: Hold for SBP less than 110 mmHg furosemide 40 mg Tablet 40 mg PO BIDLX Qty: 0 0RF insulin lispro [Humalog KwikPen Insulin] 100 unit/mL [...] infected, or steroid patients MEDIUM DOSING ALGORITHIM ferrous sulfate 325 mg (65 mg iron) tablet 325 mg PO QODAY Qty: 30 0RF Primary Care Provider: Rigoberto Durand Referrals: Rigoberto Durand MD [Primary Care Provider, Family Practice] Activity Restrictions/Additional Instructions: Thank you for trusting us with your care today! Imaging of your brain, cervical spine and face were negative for acute traumaticinjuries. X-ray of your right shoulder was negative as well. To TCU: Patient would need frequent blood sugar monitoring given initial complaint of hypoglycemia. Please take Tylenol (2 pills, 650 mg), ibuprofen (2 pills, 400 mg) every 6 hoursas needed for pain and fever control. Please return to the emergency department if your symptoms change or worsen. Please follow with your primary care physician for further outpatient evaluationand management. Print Language: Ukrainian Disposition Disposition: Home, Self Care What to do if you have Problems For any increased pain, shortness of breath, bleeding, nausea or vomiting, chestpain, or any unexpected problems, contact your Primary Care Provider. Call [facility] ([phone]) or report to the closest Emergency Room. Call 911 if necessary. 04/13/25 1727 <Electronically signed by Kian Simons DO> Cosigner Signature (if applicable): CC: Dr. Rigoberto Durand MD ~ Signed [facility] Work Phone: evaluation note* Diagnosis Onset Date Resolution Status GI bleed acute MIAU (minor aphthous ulceration) acute Congestive heart failure acu te GI bleed acute Orthostatic hypotension reso lved Upper GI bleed resolved Acid reflux acute Constipation acute GI bleed acute [facility] Work Phone: Evaluation note* Diagnosis Onset Date Resolution Status Acid reflux acute Constipation acute [facility] Work Phone: Evaluation note* Diagnosis Onset Date Resolution Status Acid reflux chronic Constipation chronic Acid reflux chronic Constipation chronic GI bleed resolved [facility] Work Phone: Evaluation note* Diagnosis Chronic systolic (congestive) heart failure (HCC) Chronic HFrEF (heart failure with reduced ejection fraction) ([facility]) documented in this encounter [facility] Work Phone: Evaluation note* Diagnosis Onset Date Resolution Status Acid reflux chronic Constipation chronic GI bleed resolved Spinal stenosis of lumbar region with radiculopathy acute [facility] Work Phone: Evaluation noteNo assessment information available [facility] Work Phone: evaluation note* Diagnosis Hyperlipidemia, unspecified hyperlipidemia type Encounter for adjustment or management of cardiac device documented in this encounter [facility]* Diagnosis Acute HFrEF (heart failure with reduced ejection fraction) ([facility]) Encounter for adjustment or management of cardiac device documented in this encounter [facility] [employer] [facility]* Diagnosis Acute HFrEF (heart failure with reduced ejection fraction) ([facility]) documented in this encounter [facility] [employer] [facility]* Diagnosis Erectile dysfunction, unspecified erectile dysfunction type documented in this encounter [facility] [employer] [facility]* Diagnosis Non-ischemic cardiomyopathy (CMS/HCC) ([facility])- Primary Other primary cardiomyopathies Primary hypertension Unspecified essential hypertension Acute HFrEF (heart failure with reduced ejection fraction) ([facility]) ICD (implantable cardioverter-defibrillator), biventricular, in situ Other iron deficiency anemia documented in this encounter [facility] [employer] [facility]* Diagnosis Chronic HFrEF (heart failure with reduced ejection fraction) ([facility]) Encounter for adjustment or management of cardiac device Encounter for adjustment or management of cardiac device documented in this encounter [facility] note* Diagnosis Acute HFrEF (heart failure with reduced ejection fraction) ([facility]) Encounter for adjustment or management of cardiac device documented in this encounter [facility] note* Diagnosis Erectile dysfunction, unspecified erectile dysfunction type Encounter for adjustment or management of cardiac device documented in this encounter [facility] note* Diagnosis Acute HFrEF (heart failure with reduced ejection fraction) (CMS/HCC) ([facility])- Primary Presence of cardiac resynchronization therapy defibrillator (ORDER TRACER-D) Non-ischemic cardiomyopathy (CMS/HCC) ([facility]) Other primary cardiomyopathies Encounter for adjustment or management of cardiac device documented in this encounter [facility] note* Diagnosis Chronic HFrEF (heart failure with reduced ejection fraction) ([facility])- Primary Encounter for adjustment or management of cardiac device documented in this encounter [facility] note* Diagnosis Acute HFrEF (heart failure with reduced ejection fraction) ([facility]) Encounter for adjustment or management of cardiac device documented in this encounter [facility] note* Diagnosis Primary hypertension- Primary Unspecified essential hypertension Acute systolic heart failure (HCC) Acute systolic heart failure Acute on chronic clinical systolic heart failure ([facility]) Encounter for adjustment or management of cardiac device documented in this encounter [facility] note* Diagnosis Acute systolic congestive heart failure (HCC)- Primary Bilateral leg edema Edema Acute systolic congestive heart failure (HCC) Chronic kidney disease, unspecified CKD stage AICD (automatic cardioverter/defibrillator) present Automatic implantable cardiac defibrillator in situ Presence of cardiac resynchronization therapy defibrillator (ORDER TRACER-D) HTN (hypertension) Unspecified essential hypertension Follicular non-Hodgkin's lymphoma ([facility]) Encounter for adjustment or management of cardiac device documented in this encounter [facility] note* Diagnosis Cellulitis- Primary Cellulitis and abscess of unspecified site Cellulitis of lower extremity, unspecified laterality Acute HFrEF (heart failure with reduced ejection fraction) ([facility]) Cellulitis of lower extremity, unspecified laterality Encounter for adjustment or management of cardiac device documented in this encounter [facility] note* Diagnosis Non-ischemic cardiomyopathy (CMS/HCC) ([facility])- Primary Other primary cardiomyopathies Acute HFrEF (heart failure with reduced ejection fraction) ([facility]) ICD (implantable cardioverter-defibrillator), biventricular, in situ Encounter for adjustment or management of cardiac device documented [facility]* Diagnosis Chronic HFrEF (heart failure with reduced ejection fraction) (HCC) Encounter for adjustment or management of cardiac device documented [facility]* Diagnosis Acute HFrEF (heart failure with reduced ejection fraction) (HCC)- Primary [facility] Author Rigoberto Durand [facility] Note Date/Time April 05, 2025 2:38am [facility] Medical Records Department [address] [place] [address] History & Physical Exam 04/05/25 0229 MR#: [id number] Acct: [id number] Name: MEGAN NASCIMENTO Rep #:[id number] : [...] in rehab facility for strength and rehab. [facility] Medical History (Updated 04/05/25 @ 02:35 by [...] 04/10 Unknown History tablet,extended release 24 hr gbnzwqgispyu-pgz-ojuxe acid-vit 1 tab PO DAILY not on [...] (Auto) 70.4 H, Lymph % (Auto) 14.4 L,[place] % (Auto) 11.2 H, Eos % (Auto) [...] 449 H, NT [place] BNP II > [address]163 H, TSH 13.700 H Imaging Radiology Impression Chest X-Ray 04/05/25 00:36 IMPRESSION: Moderate bilateral pleural effusions. Passive atelectatic airspace disease of the lower lobes. Moderate central pulmonary venous congestion. Moderate interstitial pulmonary congestion. AICD is in good position. Enlarged cardiac silhouette. Reading Location: [place] [address] Assessment & Plan Assessment/Plan (1) Fall: (2) [...] code verified Charges/Coding Visit Charges Inpatient E&M: 04904 Init Hosp L2 04/05/25 0238 <Electronically signed by Rigoberto Durand MD> Cosigner Signature (if applicable): CC: Dr. Rigoberto Durand MD~ Signed [facility] Work Phone: Hospital Discharge instructions Additional Instructions Follow-up with your PCP and return for any other concerns.[facility] Work Phone: Hospital Discharge instructionsAdditional Instructions Follow-up with your doctors in outpatient setting. Return with worsening symptoms or any other concerns. Have your kota removed in approximately 5 days by your primary care physician. Showed them the CT results that were printed off for your records.[facility] Work Phone: Hospital Discharge instructionsAdditional Instructions Thank you for trusting us with your care today! Imaging of your brain, cervical spine and face were negative for acute traumatic injuries. X-ray of your right shoulder was negative as well. To TCU: Patient would need frequent blood sugar monitoring given initial complaint of hypoglycemia. Please take Tylenol (2 pills, 650 mg), ibuprofen (2 pills, 400 mg) every 6 hours as needed for pain and fever control. Please return to the emergency department if your symptoms change or worsen. Please follow with your primary care physician for further outpatient evaluation and management.[facility] Work Phone: Reason for referral (narrative)No reason for referral information availableWooSalem City [facility] Work Phone: History of Present Illness [...] questions answered. documented in this encounter* Cindy Recinos, CHLOE - MARIIA - 09/14/2020 7:57 AM EST Heart Failure Daily Progress Note Follow up for: HFrEF, volume overload SUBJECTIVE: Today, Megan Nascimento states he is feeling less bladder pressure after barroso placed as well as improvements in his BLE swelling. He denies chest pain/pressure but does still has some tenderness around ORDER TRACER-P site. Denies dizziness or feeling lightheaded. SCHEDULED [...] be in ADHF with volume overload after ORDER TRACER-D placement - Diuresing with lasix gtt at [...] restriction, 2gm Na diet #LBBB POD#3 s/p ORDER TRACER-D by Dr. Gates - Placed 09/11/20 - Follow up two weeks device clinic and three months with Dr Gates. 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 Since 03/2020 has been 1.0 -2.7 - GABI this admit is likely 2/2 obstructive uropathy vs volume overload now s/p barroso and improvement in cr today. #Urinary retention - Follows with Dr. Anirudh Arshad with [facility] - Continue flomax - Renal u/s to r/o hydro #Iron def anemia - PO iron Attempted to call Zuleyka Nascimento per patient's request to update on plan of care. Left VM and will try again tomorrow. Seen and discussed with Dr. Lindsey [facility] Heart Failure Program [address] [place] [address] Office: [phone] * Mackenzie Bridges MD - 09/14/2020 5:42 [...] K chloride given. BMP recheck at noon. Barbering Teacher, PGY-6 Pager [phone] * Natan Vicente MD - 09/13/2020 2:12 PM EST CARDIOLOGY PROGRESS NOTE Chart and interval events reviewed. Reason for Visit Megan Nascimento is a 80 y.o. male with a PMHx of HFrEF/NI-DCM (EF 14%), non-Hodgkins lymphoma (s/p chemotherapy), PE/DVT (dx in [place], on Eliquis), LBBB, CKD who underwent ORDER TRACER-D placement yesterday and heart failure service is [...] lymphoma (s/pchemotherapy), PE/DVT (dx in [place], on [facility]), LBBB, CKD who underwent ORDER TRACER-D placement yesterday and heart failure service is consulted for transient hypotension post-op, found to be in decompensated HF. // HFrEF/NI-DCM (EF 14%), Stage C, FC III with decompensation - s/p ORDER TRACER-D for LBBB // Transient hypotension - possibly [...] overnight bladder scan showing severe retention - Barroso catheter for now - Continue home Flomax [...] Nascimento is an 80 yo M s/p ORDER TRACER-D for HFrEF (LVEF 14%), LBBB, had transient [...] urinary retention of >500 mL today, placed barroso catheter. Will need voiding trials vs. Going home with barroso and and follow up in clinic. Continue Flomax - Follow up Cr trend tomorrow now that urine is not obstructed HF will follow up response tomorrow. Lisa Lindsey MD Department of Cardiovascular Disease, Division of Heart Failure [facility] [place] 3:48 PM 09/13/20 * Jaylin Irvin DTR - 09/13/2020 10:01 AM EST Nutrition rescreen completed. Chart reviewed. Patient to be monitored and followed by the diet business systems technician. \ * Gibson Dugan APRN - MARIIA - 09/13/2020 7:50 AM EST CARDIOLOGY PROGRESS NOTE Chart and interval events reviewed. Reason for Visit s/p ORDER TRACER-D SUBJECTIVE: Megan Nascimento states left shoulder pain [...] Hold] sodium chloride CBC: Recent Labs 09/12/20 003 WBC 3.9 HGB 10.2* HCT 33.1* PLT 276 BMP: Recent Labs 09/12/202909/13/20 0351 NA 137 134* K 3.6 4.1 [...] Chronic Systolic Heart Failure: LBBB: Status post ORDER TRACER-D implant 09/11/[address] Gates. HF team [...] interval events reviewed. Reason for Visit s/p ORDER TRACER-D SUBJECTIVE: Megan Nascimento states soreness at device site, LE edema [...] Hold] sodium chloride CBC: Recent Labs 09/12/20 003 WBC 3.9 HGB 10.2* HCT 33.1* PLT 276 BMP: Recent Labs 09/12/20 003 NA 137 K 3.6 CL 97* CO2 [...] Class III. S/p [facility] MRI Compatible ORDER TRACER-D Implant. Device teaching done and booklet given. [...] year old with HFrEF, BiV failure, sp ORDER TRACER-D yesterday had transient hypotension overnight. - Patient's [...] Dr. Les Kinney who is in agreement. Barbering Teacher, PGY-6 Pager [phone] * Rena Lagos [facility] - 09/11/2020 5:56 PM EST Megan Nascimenot was ordered CoQ-10. Per [facility] Policy #4005, herbals and certain dietary supplements are automatically discontinued for the duration of the hospital stay. The product remains on the Home Medication List for resumption at discharge unless specifically discontinued by the prescriber. If there is a need for acute treatment using this agent, please contact the pharmacy for further assistance. Rena Lagos RP documented in this encounter* Saira Espinoza RCP - 09/26/2020 11:19 AM EST [facility] Respiratory Care Department Progress Note SpO2 [...] at home Y/N = Yes * Saira Mark RD, LD - 09/25/2020 3:43 PM EST [...] medical history significant for NICM HFrEF 14%, ORDER TRACER-D, LBBB, +3 MR/TR, non-Hodgkins lymphoma (s/p chemotherapy), bladder cancer, BPH, PE/DVT (dx in [place], on Eliquis), and CKD. PT HAD on ipeojarkj-1-4+ BLLE up to his hips. He is up 8lbs s george discharge. He states that he does abide by a low sodium diet, and the 64 ounce fluid restriction. His main concern is getting his gallbladder out as he has a lot of pain and diarrhea(ef 14%) Malnutrition Assessment: Malnutrition Status: Insufficient data Context: Acute Illness Estimated Daily Nutrient Needs: Energy (kcal): 7538-1912; Weight Used for Energy Requirements: Truxton Protein (g): 54- 67; Weight Used for Protein Requirements: Truxton(.8-1) Fluid (ml/day): Per MD recommendations; Method Used [...] lb (88.5 kg)(standing scale) Usual Body Weight: Truxton Body Weight: 148 lbs; % Truxton Body Weight 118.9 % BMI: 27.6 Adjusted [...] 09/25/2020 10:43 AM EST Occupational Therapy Facility/Department: [facility] Daily Treatment Note NAME: Megan Nascimento [...] as schedule permits. Renée Moreira OT * aDt Angel DO - 09/25/2020 10:36 AM EST Images from the original note were not included. Hospitalist Progress Note 09/25/2020 10:36 AM [phone]: Please page me ([phone]) for patient care issues. [phone]: Please page IMS night Hospitalist for any [...] [phone] BMP: Recent Labs 09/23/2041309/24/2032709/25/20 034 NA 137 136 136 K 3.5 3.2* 3.2* CL 97* 94* 95* CO2 30 34* 34* BUN 42* 42* 38* CREATININE 2.38* 2.23* 2.12* GLUCOSE 110* 111* 126* CALCIUM 9.0 8.9 9.0 ANIONGAP 10 8 7 LIVER PROFILE: Recent Labs 09/23/20 0414 AST 56* ALT 27 BILITOT 1.9* ALKPHOS [...] non-focal. Assessment 1. HFrEF exacerbation 2. S/p ORDER TRACER-D placement 09/11/20 3. 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 HTN 5. 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 Hypokalemia 8. BPH 9. Anemia 10. Obesity Plan -telemetry monitoring, daily weights, I&Os, changed to PO diuresis today per cards -nephrology following -dc chio -am labs, replace lytes prn -increase activity/PT/OT -DVT prophylaxis: [x] Lovenox [] Heparin [] SCDs [x] Encourage ambulation [] Already on Anticoagulation Advance Directive: Prior Discharge planning: TBD Dat Angel DO Division of Hospitalist Medicine Inpatient Medical Services PAGER: [phone] * Ralph Roth MD - 09/25/2020 9:42 [...] 35.0* PLT 230 223 BMP: Recent Labs 09/24/208 09/25/20 0340 NA 136 136 K 3.2* [...] Nunez MD - 09/25/2020 5:24 AM EST [facility] Nephrology Progress Note Subjective/ 80 [...] mEq Oral TID WC Les Jama MD 20 mEq at 09/24/20 1739 acetaminophen (TYLENOL) tablet 650 mg 650 mg Oral Q4H PRN Dat Angel, DO 650 mg at 09/24/20 1323 aluminum [...] mg 0.4 mg Oral Daily CHLOE Ch MACHINE HAND 0.4 mg at 09/24/20 075 pantoprazole (PROTONIX) tablet 40 mg 40 mg Oral QAM AC CHLOE Ch MACHINE HAND 40 mg at 09/25/20 0518 therapeutic multivitamin-minerals 1 tablet 1 tablet Oral Daily CHLOE Ch CNP 1 tablet at 09/24/20 075 vitamin B-12 (CYANOCOBALAMIN) tablet 1,000 mcg 1,000 mcg Oral Daily CHLOE Ch CNP 1,000 mcg at 09/24/20 075 Vitamin D (CHOLECALCIFEROL) tablet 1,000 Units 1,000 Units Oral Daily Petra Renteria, LIFE INSURANCE AGENT - MACHINE HAND 1,000 Units at 09/24/20 0758 furosemide (LASIX) infusion 10 mg/hr (09/24/20 0552) Data/ Recent Labs 09/23/204 09/24/20 0328 WBC 5.9 5.7 HGB 11.0* [...] 176# today Hb at goal Can d/c barroso catheter from my side. Avoid I/V contrast. Will follow. D/w RN. * Kashmir Nunez MD - 09/24/2020 5:36 PM EST [facility] Nephrology Progress Note Subjective/ 80 [...] 20 mEq Oral TID Les Jama MD acetaminophen (TYLENOL) tablet 650 [...] CHLOE Ch CNP 1 tablet at 09/24/20 0756 apixaban (ELIQUIS) tablet 2.5 mg 2.5 mg Oral BID CHLOE Ch CNP 2.5 mg at 09/24/20 0756 ferrous sulfate (IRON 325) tablet 325 mg 325 mg Oral BID CHLOE Ch CNP 325 mg at 09/24/20 0756 metoprolol succinate (TOPROL XL) extended release tablet 100 mg 100 mg Oral Daily Petra Renteria APRN - MACHINE HAND 100 mg at 09/24/20 075 gabapentin (NEURONTIN) capsule 400 mg 400 mg Oral BID Petra Renteria APRN - MACHINE HAND 400 mg at 09/24/20 0757 tamsulosin (FLOMAX) capsule 0.4 mg 0.4 mg Oral Daily Petra Renteria APRN - MACHINE HAND 0.4 mg at 09/24/20 0757 pantoprazole (PROTONIX) tablet 40 mg 40 mg Oral QAM AC Petra Renteria APRN - MACHINE HAND 40 mg at 09/24/20 0501 therapeutic multivitamin-minerals 1 tablet 1 tablet Oral Daily Petra Renteria APRN - MACHINE HAND 1 tablet at 09/24/20 075 vitamin B-12 (CYANOCOBALAMIN) tablet 1,000 mcg 1,000 mcg Oral Daily Petra Renteria APRN - MACHINE HAND 1,000 mcg at 09/24/20 075 Vitamin D (CHOLECALCIFEROL) tablet 1,000 Units 1,000 Units Oral Daily Petra Renteria LIFE INSURANCE AGENT - MACHINE HAND 1,000 Units at 09/24/20 075 furosemide (LASIX) infusion 10 mg/hr (09/24/20 0552) [...] weights to continue. Hb at goal Keep barroso catheter. Avoid I/V contrast. Will follow. D/w RN. Kashmir Nunez MD [facility] * Griselda Villatoro, PT - 09/24/2020 11:57 AM EST Physical Therapy Facility/Department: [facility] Initial Assessment NAME: Megan Nascimento : [...] lymphoma and bladder CA as well as ORDER TRACER-D placement 09/11. Exam: AM-PAC PT Education: PT [...] cane or walker) Transfer Assistance: Independent Active Tube Builder Airplane: Yes Mode of Transportation: [facility] Cognition Cognition Overall Cognitive Status: WNL Objective Observation/Palpation Posture: Good Observation: barroso and IV intact AROM LLE (degrees) LLE [...] 3-5 steps with a railing?: Total(not assessed) AM-[facility] Inpatient Mobility Raw Score : 21 AM-PAC Inpatient T-Scale Score : 50.25 Mobility Inpatient CMS 0-100% Score: 28.97 Mobility Inpatient CMS G-Code Modifier : AM-PAC Score AM-PAC Inpatient Mobility Raw Score : 21 (09/24/201156) AM-PAC Inpatient T-Scale Score : 50.25 (09/24/201156) Mobility Inpatient CMS 0-100% Score: 28.97 (09/24/201156) Mobility Inpatient CMS G-Code Modifier : (09/24/201156) Therapy Time Individual Concurrent Group Co-treatment Time [...] 107/73 Pulse: 83 85 89 Resp: 16 19 Temp: 98.6 F (37 C) TempSrc: [...] 10 mg/hr (09/24/20 0552) CBC: Recent Labs 09/23/204 09/24/20 0328 WBC 5.9 5.7 HGB 11.0* 10.3* HCT 34.2* 32.6* PLT 245 230 BMP: Recent Labs 09/23/2041309/24/208 NA 137 136 K 3.5 3.2* CL [...] Last cardiac catheterization: 04/2019 No significant disease 09/11/2020-ORDER TRACER-D implant IMPRESSIONS/RECOMMENDATIONS: 1. Heart failure with severely [...] with increased doses of Entresto. 2. Recent ORDER TRACER-D implant 09/11/2020- stable, V-pacing 3. Hypertension- stable/controlled 4. Renal insuffiencey- stable, will continue to closely monitor during IV diuresis. - also followed by Nephrology Electronicallysigned by Petra Renteria APRN - MACHINE HAND on 09/24/2020 at 7:59 AM I, Dr. Jama, personally performed a face to face diagnostic evaluation. I have reviewed the BUSINESS CONTROL SPECIALIST's documentation and edited the clinical findings, assessment, and plan to reflect my own evaluation andmedical decision making. In addition to above, history and exam by me shows pt alert nad rrr lungs clear, edema decreased. The plan is to likely transition off lasix gtt and metolazone in a.m. Replete K+. * Kashmir Nunez MD - 09/23/2020 4:38 PM EST [facility] Progress Note Subjective/ 80 y.o. year old male who we are seeing in consultation for GABI on CKD. PO intake okay. BP stable. Good urine output. Breathing stable. ROS otherwise negative. No change in pfsh. Objective/ Vitals: 09/23/20 1300 09/23/20 1400 09/23/20 1426 09/23/20 1502 BP: 116/74 112/71 121/74 Pulse: 81 91 96 Resp: 16 21 18 28 Temp: 97.6 F (36.4 C) [...] tablet 20 mEq 20 mEq Oral BID Les Jama MD metOLazone (ZAROXOLYN) tablet 5 mg 5 mg Oral Daily Mauro Padgett MD 5 mg at 09/23/20 0909 furosemide (LASIX) 500 mg in dextrose 5 % 100 mL infusion 10 mg/hr Intravenous Continuous CHLOE Disla CNP 2 mL/hr at 09/22/20 1545 10 mg/hr at 09/22/20 1545 albuterol (PROVENTIL) nebulizer solution 1.25 mg 1.25 mg Nebulization Q6H PRN Mauro Padgett MD 1.25 mg at 09/23/20 1426 sacubitril-valsartan (ENTRESTO) 24-26 MG per tablet 1 tablet 1 tablet Oral BID CHLOE Ch MACHINE HAND 1 tablet at 09/23/20 0906 apixaban (ELIQUIS) tablet 2.5 mg 2.5 mg Oral BID CHLOE Ch MACHINE HAND 2.5 mg at 09/23/20 0908 ferrous sulfate (IRON 325) tablet 325 mg 325 mg Oral BID CHLOE Ch CNP 325 mg at 09/23/20 0909 metoprolol succinate (TOPROL XL) extended release tablet 100 mg 100 mg Oral Daily CHLOE Ch CNP 100 mg at 09/23/20 0906 gabapentin (NEURONTIN) capsule 400 mg 400 mg Oral BID CHLOE Ch CNP 400 mg at 09/23/20 0906 tamsulosin (FLOMAX) capsule 0.4 mg 0.4 mg Oral Daily Petra Renteria APRN - MACHINE HAND 0.4 mg at 09/23/20 0909 pantoprazole (PROTONIX) tablet 40 mg 40 mg Oral QAM AC Petra Renteria APRN - MACHINE HAND 40 mg at 09/23/20 0909 therapeutic multivitamin-minerals 1 tablet 1 tablet Oral Daily Petra Renteria APRN - MACHINE HAND 1 tablet at 09/23/20 0907 vitamin B-12 (CYANOCOBALAMIN) tablet 1,000 mcg 1,000 mcg Oral Daily Petra Renteria APRN - MACHINE HAND 1,000 mcg at 09/23/20 0907 Vitamin D (CHOLECALCIFEROL) tablet 1,000 Units 1,000 Units Oral Daily Petra Renteria APRN - MACHINE HAND 1,000 Units at 09/23/20 0908 furosemide (LASIX) infusion 10 mg/hr (09/22/20 1545) Data/ Recent Labs 09/21/20201709/22/20 0506 09/23/20 0414 WBC 5.5 4.8 5.9 [...] weights to continue. Hb at goal Keep barroso catheter. Avoid I/V contrast. Will follow. Kashmir Nunez MD [facility] * Ana M Iverson, OT [...] lymphoma and bladder CA as well as ORDER TRACER-D placement 09/11. Exam: [facility] Assistance / Modification: SBA OT Education: OT [...] Precautions, Fall Risk(HICU tele, continuous O2 monitoring, barroso, PIV) Required Braces or Orthoses?: No Subjective General Chart Reviewed: Yes Patient assessed for rehabilitation services?: Yes Family / Caregiver Present: No Subjective Subjective: Pt pleasant and cooperative. General Comment Comments: Per RN, ok for pt to participate in OT eval. [...] cane or walker) Transfer Assistance: Independent Active Tube Builder Airplane: Yes Mode of Transportation: [facility] Objective Vision: Within Functional Limits Vision Exceptions: [...] 96 hrs (Last 3 readings): Weight 09/22/20 0700 191 lb (86.6 kg) 09/21/202000 [...] Last cardiac catheterization: 04/2019 No significant disease 09/11/2020-ORDER TRACER-D implant IMPRESSIONS/RECOMMENDATIONS: 1. Heart failure with reduced EF exacerbation- good diuresis overnight - neg 1,650 overnight - Lasix drip continues, metolazone 5 mg daily - Toprol 100 mg daily and Entresto 24/26 mg 1 tab twice daily. Pt has a hx of hypotension with increased doses of Entresto. 2. Recent ORDER TRACER-D implant 09/11/2020- stable, V-pacing 3. Hypertension- stable/controlled 4. Renal insuffiencey- Creatinine is mildly elevated compared to baseline. Continue to monitor during IV diuresis -Nephrology also consulted Electronicallysigned by Petra Renteria APRN - MACHINE HAND on 09/23/2020 at 7:47 AM I, Dr. Jama, personally performed a face to face diagnostic evaluation. I have reviewed the BUSINESS CONTROL SPECIALIST's documentation and edited the clinical findings, assessment, and plan to reflect my own evaluation andmedical decision making. In addition to above, history and exam by me shows pt alert NAD lungs mildly diminished, +JVD, abd soft, 2+ BLE soft pitting edema. The plan is to continue diuresis. Replete lytes, anticipate further drop in K+ with metolazone and lasix. * Bianca Rehman, ADRIA, LD - 09/22/2020 10:12 AM EST Comprehensive Nutrition Assessment Type and Reason for Visit: Initial, Consult(HF Guidelines) Nutrition Recommendations/Plan: 1. Continue Cardiac/ Low Sodium (2gm) diet as ordered. Cardiac includes fat restriction which may aide in gallbladder symptoms - noted pt awaiting surgery. Fluid allowance per MD discretion, per chart review, pt limited to 64 ounces/day MANAGER DATA. 2. RD provided written diet education (Cardiac [...] Diet & Heart Failure Nutrition Therapy from [facility]). Attempted to verbally review, however, pt very fatigued, falling asleep multiple times during instruction. RD to re-attempt diet education closer to discharge date if a ppropriate. Malnutrition Assessment: Malnutrition Status: Insufficient data Context: Acute Illness Estimated Daily Nutrient Needs: Energy (kcal): 6586-7643; Weight Used for Energy Requirements: Truxton Protein (g): 67-80; Weight Used for Protein Requirements: Truxton(1.0-1.2 g/kg) Fluid (ml/day): Per MD recommendations Nutrition [...] kg) Usual Body Weight: Appears around 182#-187# Truxton Body Weight: 148 lbs; % Truxton Body Weight 131.8 % BMI: 30.5 Adjusted [...] Contact: [phone] * Petra Renteria APRN - MACHINE HAND - 09/22/2020 8:06 AM EST CARDIOLOGY PROGRESS NOTE Chart and interval events reviewed. Reason for Visit HFrEF- exacerbation-f/u SUBJECTIVE: Megan Nascimento states feels a little less SOB and [...] 33.6* PLT 237 207 BMP: Recent Labs 09/21/20201709/22/20 0506 NA 141 139 K 3.8 3.8 [...] Last cardiac catheterization: 04/2019 No significant disease 09/11/2020-ORDER TRACER-D implant IMPRESSIONS/RECOMMENDATIONS: 1. Heart failure with reduced EF exacerbation- decompensated - [place] [employer] Functional Class - 3, stage D - IV lasix 80 mg twice daily continues- will monitor daily weights, intake and output - Entresto 24/26 mg 1 tab twice daily and Toprol XL 100 mg daily continues. 2. Recent ORDER TRACER-D implant 09/11/2020 -noted first device check scheduled [...] with reduced ejection fraction) (HCC) Advance Directives Documents on File Type Date Recorded Patient Rn Private Duty Expl anation ACP-Advance Directive ACP-Power of Toy Assembly Supervisor Documents on File Type Date Recorded Patient Rn Private Duty Expl anation ACP-Advance Directive ACP-Power of Toy Assembly Supervisor Latest Code Status on File Code Status Date Activated Date Inactivated Comments Full Code 09/11/2020 5:51 PM Full Code 09/11/2020 11:11 AM 09/11/2020 5:51 PM Latest Code Status on File Code Status Date Activated Date Inactivated Comments Full Code 09/11/2020 5:51 PM 09/15/2020 7:16 PM Advance Directive Response Recorded Date/ Time Living Will No August 20 10:36pm Power of Toy Assembly Supervisor Yes August 20, 2021 10:36pm Latest Code Status on File Code Status Date Activated Date Inactivated Comments Full Code 05/13/2021 10:55 PM 05/21/2021 5:56 PM Full Code 01/30/2021 4:10 PM 02/01/2021 4:49 PM Full Code 09/11/2020 5:51 PM 09/15/2020 7:16 PM Full Code 09/11/2020 11:11 AM 09/11/2020 5:51 PM Advance Directive Response Recorded Date/ Time Living Will No August 20 9:36pm Power of Toy Assembly Supervisor Yes August 20, 2021 9:36pm Advance Directive Response Recorded Date/ Time Living Will No November 27, 2023 4: 43am Power of Toy Assembly Supervisor No November 27, 2023 4:43am Advance Directive Response Recorded Date/ Time Do you have a Healthcare Power of Toy Assembly Supervisor? Yes December 12, 2024 11:46am Date Activated Date Inactivated Comments 01/29/2025 2:17 PM 02/01/2025 8:33 PM Date Activated Date Inactivated Comments 02/10/2025 6:22 AM 02/15/2025 6:29 PM Date Activated Date Inactivated Comments 01/29/2025 2:17 PM 02/01/2025 8:33 PM Advance Directive Response Recorded Date/ Time Do you have a Healthcare Power of Toy Assembly Supervisor? Yes December 12, 2024 11:46am Do you have a Healthcare Power of Toy Assembly Supervisor? No April 01, 2025 12:38pm Advance Directive Response Recorded Date/ Time Do you have a Healthcare Power of Toy Assembly Supervisor? Yes December 12, 2024 11:46am Do you have a Healthcare Power of Toy Assembly Supervisor? No April 01, 2025 12:38pm Do you have a Healthcare Power of Toy Assembly Supervisor? Yes April 05, 2025 12:04am Name of Medical Power of Toy Assembly Supervisor tommy April 05, 2025 12:04am Advance Directive Response Recorded Date/ Time Do you have a Healthcare Power of Toy Assembly Supervisor? Yes April 08, 2025 12:10pm Name of Medical Power of Toy Assembly Supervisor daughter April 07, 2025 4:23pm Do you have a Healthcare Power of Toy Assembly Supervisor? No April 01, 2025 12:38pm Do you have a Healthcare Power of Toy Assembly Supervisor? Yes April 05, 2025 4:11am Name of Medical Power of Toy Assembly Supervisor tommy April 05, 2025 12:04am Reason for [...] 2D Doppler Color Ralph Roth MD [address] [place] [address] Specialty Diagnoses / Procedures Referred By Contac t Referred To Contact Cardiology Diagnoses Chronic HFrEF (heart failure with reduced ejection fraction) (HCC) Procedures Echo 2D Doppler Color Ruddy Gates MD [address] [facility] [address] [place] [address] Referral ID Status Reason Start Date Expiration Date Visits Re quested Visits Authorized [id number] Closed 02/16/2022 07/21/2022 1 1 Discharge Instructions [...] sent through Care Everywhere. * Abdominal Pain (Ukrainian) documented in this encounter* Discharge Instr - Lab* Maria Antonia Mcmullen RN - 09/15/2020 1:12 PM EST Your physician has ordered skilled home care services for you. Your home care will be provided by: [facility] [phone] * Additional Instructions* Marcela Henson, LIFE INSURANCE AGENT - MACHINE HAND - 09/11/2020 Internal Cardioverter Defibrillator [place] [...] in CPR. Call the Device Clinic at [phone] if you have any questions regarding your incision, defibrillator, or follow-up appointments. Call the Device Clinic at [phone] if you have signs of a rapid heart rhythm, if you hear a beeping tone or vibration from your defibrillator. Call the Device Clinic at [phone] or your physician if you experience a shock. Be calm and liedown if you are alone. If you feel as though you are going to pass out call [phone]. No lifting, pulling, pushing more than 5 [...] from the original note were not included. [facility] QUICK REFERENCE TOOL Discharge Date: 09/26/20 Patient Name: Megan Higuera Azam Support Person/ Primary Emergency Contact: Zuleyka Nascimento Diagnosis: Acute on chronic clinical systolic heart failure (HCC) [I50.23] Acute HFrEF (heart failure with reduced ejection fraction) ([facility]) [I50.21] Self monitoring: Weigh yourself daily. Perform [...] your medicine. Do not take any vitamins, dabl-akt-lpyeoej medicine, or herbal products without talking to [...] Where can you learn more? Go to [email or web address] and sign in to your Medic[employer] account. Enter E597 in the Search Health Information box to learn more about Heart Failure: Care Instructions. If you do not have an account, please click on the Sign Up Now link. Current as of: July 05, 2019 Content Version: 12.6 [employer] Care instructions adapted under license by [employer]. If you have questions about a medical condition or this instruction, always ask your healthcare professional. [employer] disclaims any warranty or liability for your use of this information. Activity and Exercise: Walk every day. Start with 5 minutes a day. Slowly increase to a goal (ie. 10-30 minutes a day). Remember to rest when tired. Follow Up Appointments: Please bring Photo ID, Insurance Cards, and a Current List of Medications to your appointments. Painter Touch Up: Petra DELGADO @ [address] [place] [address], [address], [place] [address] Appointment: 10/05/2020 9AM Primary Care: RIGOBERTO DURAND MD Appointment: 10/05/2020 @ 10:10 AM Address: [address], [address] [place] [address] 24 - 72 HR Post Discharge Call: [...] ANY QUESTIONS, CALL THE UNIT (HICU) AT [phone] documented in this encounter Hospital Course * Lisa Lindsey MD - 09/15/2020 10:56 AM EST [facility] Cardiology Service--Heart Failure Discharge Note Name: Megan Nascimento Date of : 1940 Date of Service: 09/15/20 Time of Service: 2:45 PM Date of Admission: 09/11/2020 Date of Discharge: 09/15/2020 Admitting Physician: Ruddy Gates MD Discharge Attending: Lisa Lindsey MD Primary Care Provider: RIGOBERTO DURAND MD Consultants: RON Reason for Admission ORDER TRACER-D placement Hospital Admission ProblemList: Patient Active Problem [...] be in ADHF with volume overload after ORDER TRACER-D placement - Diuresed well with lasix gtt. [...] restriction, 2gm Na diet #LBBB POD#3 s/p ORDER TRACER-D by Dr. Gates - Placed 09/11/20 - [...] 2/2 obstructive uropathy vs volume overload s/p barroso and improvement incr #Urinary retention/ ?enlarged prostate - Follows with Dr. Anirudh Arshad with [facility] - Continue flomax - Renal u/s negative for hydronephrosis #Iron def anemia - PO iron Hospital Course Megan Nascimento is a 80 y.o. male (Patient of Dr. 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 After the procedure he was found [...] overload as well as obstructive uropathy. A barroso was placed after he was found to have severe retention on bladder scan. A renal u/s showed no hydronephrosis. His gabapentin was decreased in the setting of his renal dysfunction. On day of discharge his barroso was removed and he was able to void successfully prior to leaving. Procedures: S/p ORDER TRACER-D implant on 09/11/[address] Gates Review [...] Agency: [facility] Patient Discharge Instructions Discharge Medications Megna Nascimento Home Medication Instructions APOORVA:[id number] Printed on:09/15/20 6628 Medication Information apixaban (ELIQUIS) 2.5 MG TABS [...] Center 09/18/2020 9:30 AM CHLOE Gill CNP [facility] 09/21/2020 2:30 PM CHLOE Skinner [facility] 10/02/2020 9:00 AM Leslie Gloria RN [facility] 10/24/2020 11:15 AM Ralph Roth MD [facility] 12/21/2020 3:00 PM Ruddy Gates MD [facility] Quality Indicators NYHA Functional Classification: Class II [...] answered all questions as posed tome by Azam. If any questions call [facility] Heart Failure Program Clinic or [phone] CHLOE Palma CNP [facility] Heart Failure Program [address] [place] [address] [phone] [phone] This note was generated using a voice [...] summary, Megan Nascimento 80 yo M s/p ORDER TRACER-D for HFrEF (LVEF 14%), LBBB, had transient hypotension with briefly elevated lactate. Unclear precipitant. He does report that he has bene having lower BP since increasing his dose of Entresto. On exam he appeared volume up with significant JVP of >15 mmHg and LE edema. He diuresed fairly well for ~2 days after barroso catheter placed due to urinary obstruction. He feels well on day of discharge Continue on DECREASED dose of Entresto - Continue home diuretics - Symptomatically feels well, but unable to completely decongest, hopefully will have some improvement in comoing weeks with ORDER TRACER Lisa Lindsey MD Department of Cardiovascular Disease, Division of Heart Failure [facility] [place] 4:53 PM 09/15/20 documented in this encounter* [...] (heart failure with reduced ejection fraction) (HCC) Procedures: HOSPITAL COURSE : Mr. Nascimento was admitted from the office to [facility] for increasing weakness, fatigue, exertional dyspneaand a wet cough. He had 3-4+ bilateral lower extremity edema up to his hips and an 8 lb weight gainsince his recent hospital discharge for elective ORDER TRACER-D. He was IV diuresed and transitioned back [...] Discharge Medications: Megan Nascimento Home Medication Instructions APOORVA:[id number] Printed on:09/26/20 1012 Medication Information albuterol (PROVENTIL) [...] 10/05/2020 @ 9am If any questions call [facility] office [phone] Total time spent for Discharge time greater [...] Hodgkin's lymphoma and chemotherapy that he received [id number]. He is not on Farxiga at this time due to his glomerular filtration rate. I've asked him to make sure he is medically compliant, gets 30 minutes a day of physical activity, and weighs himself daily. We are arranging for home oxygen. I will see him in follow-up within a week. In cardiac resynchronization therapy. documented in this encounter Summary Purpose Family History Relationship Condition Age at Onset Recorded Date/T wendy Not Specified Hypertension Unknown Relationship Condition Age at Onset Recorded Date/T wendy Not Specified Malignant neoplasm Unknown Hypertension Unknown Chief Complaint and Reason for Visit Chief Complaint 2 WK S[facility]P [facility] ABLA ABLA ABLA ABLA ABLA ABLA [...] XRAYS fall Chief Complaint Admit Date abd pian December 12, 2024 10:31 am Chief Complaint Admit Date abd pian December 12, 2024 10:31 am fall April 01, 2025 12:30pm Chief Complaint Admit Date abd pian December 12, 2024 10:31 am fall April 01, 2025 12:30pm fall April 05, 2025 2:29am GENERALIZED WEAKNESS, FALL, RHABDOMYOLYS IS April 05, 2025 2:38am Reason for Visit Admit Date Congestive heart failure April 05, 2025 2:38am Diabetes April 05, 2025 2:38am Fall April 05, 2025 2:38am Generalized weakness April 05 2:38am Rhabdomyolysis April 05, 2025 2:38am Chief Complaint Admit Date fall April 01, 2025 12:30pm fall April 05, 2025 2:29am GENERALIZED WEAKNESS, FALL, RHABDOMYOLYS IS April 05, 2025 2:38am GENERALIZED WEAKNESS, FALL, RHABDOMYOLYS IS April 06, 2025 8:34am GENERALIZED WEAKNESS, FALL, RHABDOMYOLYS IS April 07, 2025 1:14pm FALLS, RHABDO April 07, 2025 4:05pm SWELLING LEG AND ARM April 12 8:33am fall April 13, 2025 3:53am Reason for Visit Admit Date Congestive heart failure April 05, 2025 2:38am Diabetes April 05, 2025 2:38am Generalized weakness April 05 2:38am Rhabdomyolysis April 05, 2025 2:38am CKD (chronic kidney disease), [facility] 20[facility] 2:38am Fall April 05, 2025 2:38am Acute kidney injury April 07, 2025 4:05pm BPH (benign prostatic hyperplasia) [facility] 2024 4:05pm Debility April 07, 2025 4:05pm Diabetic polyneuropathy April 07, 2025 4:05pm Essential (primary) hypertension [facility] 2024 4:05pm Hypothyroidism April 07, 2025 4:05pm Iron deficiency anemia April 07, 2 025 4:05pm Rhabdomyolysis April 07, 2025 4:05pm Type 2 diabetes mellitus with hyperglyce erica April 07, 2025 4:05pm Acid reflux April 07, 2025 4:05pm Acute on chronic HFrEF (hear t failure with reduced ejection fraction) April 07, 2025 4:05pm Reason for Visit Admit Date Congestive heart failure April 05, 2025 2:38am Diabetes April 05, 2025 2:38am Generalized weakness April 05 2:38am Rhabdomyolysis April 05, 2025 2:38am CKD (chronic kidney disease), stage IV S [facility] 2024 2:38am Fall April 05, 2025 2:38am BPH (benign prostatic hyperplasia) [facility] 2024 4:05pm Debility April 07, 2025 4:05pm Diabetic polyneuropathy April 07, 2025 4:05pm Essential (primary) hypertension [facility] 2024 4:05pm Hypothyroidism April 07, 2025 4:05pm Iron deficiency anemia April 07, 2 025 4:05pm Type 2 diabetes mellitus with hyperglyce erica April 07, 2025 4:05pm Acid reflux April 07, 2025 4:05pm Acute kidney injury April 07, 2025 4:05pm Acute on chronic HFrEF (hear t failure with reduced ejection fraction) April 07, 2025 4:05pm Rhabdomyolysis April 07, 2025 4:05pm Additional Source Comments Reason for Visit (unrecogniz ed section and content) Status Reason Specialty Diagnoses / Procedures Re ferred By Contact Referred To Contact Authorized Diagnoses Iron deficiency anemia, unspecified iron deficiency anemia type Iron malabsorption Ralph Roth MD [address] [place] [id number] [facility] [address] [place] [address] Reason Comments Fatigue Abdominal Pain Reason Onset [...] CKD stage Procedures .. Moises Adan MD [address] [place] [address] Phone: tel: fax: [facility] Cardiac Progressive Care Unit [facility] [address] [address] Phone: tel: Referral ID Status Reason Start Date Expiration Date Visits Re quested Visits Authorized Reason Onset Date Comments Other 02/04/2025 HFdEF Reason Comments Leg Swelling Pt coming in for BLE swelling & redness since being discharged from inpatient for CHF exacerbation about 1 week ago Specialty Diagnoses / Procedures Referred By Juan t Referred To Contact Diagnoses Cellulitis Cellulitis of lower extremity, unspecified laterality Procedures .. Moises Adan MD [address] [place] [address] Phone: tel: fax: [facility] Medical Surgical Unit [facility] [address] [place] [address] Phone: tel: Referral ID Status Reason Start [...] section and content) DATE CREATED AUTHOR 06/04/2021 [employer] DATE CREATED AUTHOR AUTHOR'S ORGANIZ ATION 03/22/2022 [facility] [employer] DATE CREATED AUTHOR AUTHOR'S ORGANIZ ATION 05/01/2025 [facility] DATE CREATED AUTHOR AUTHOR'S ORGANIZ ATION 05/03/[address] [facility] Goals (unrecognized section and content) Goals may [...] Care Teams (unrecognized sec tion and content) Claims Collector Relationship Specialty Start Date End Date Rigoberto [...] MD Primary Care Provider, Attending Provider Active Claims Collector Relationship Specialty Start Date End Date Gibson Roth [address] [place] [address] PCP - General 09/05/20 Claims Collector Relationship Specialty Start Date End Date Rigoberto Durand MD PCP - General Family Medicine 03/11/13 Claims Collector Relationship Specialty Start Date End Date Gibson Roth [address] [place] [address] PCP - General 09/05/20 Team Status: Inactive Member Role Status Dates Dr. Rigoberto Durand MD Primary Care Provider Active Dr. Shaun Taveras DO Emergency Provider Active Claims Collector Relationship Specialty Start Date End Date Gibson Roth [address] [place] [address] PCP - General 09/05/20 Claims Collector Relationship Specialty Start Date End Date Gibson Roth [address] [place] [address] PCP - General 09/05/20 Claims Collector Relationship Specialty Start Date End Date Gibson Roth [address] [place] [address] PCP - General 09/05/20 Claims Collector Relationship Specialty Start Date End Date Gibson Roth [address] [place] [address] PCP - General 09/05/20 Claims Collector Relationship Specialty Start Date End Date Gibson Roth [address] [place] [address] PCP - General 09/05/20 Claims Collector Relationship Specialty Start Date End Date Gibson Roth [address] [place] [address] PCP - General 09/05/20 Claims Collector Relationship Specialty Start Date End Date Gibson Roth [address] [place] [address] PCP - General 09/05/20 Team Status: Inactive [...] December 12, 2024 End: December 12, 2024 Claims Collector Relationship Specialty Start Date End Date Gibson Roth [address] [place] [address] PCP - General 09/05/20 Claims Collector Relationship Specialty Start Date End Date Gibson Rtoh [address] [place] [address] PCP - General 09/05/20 Claims Collector Relationship Specialty Start Date End Date Gibson Roth [address] [place] [address] PCP - General 09/05/20 Jany Bonilla, JAIMIE Registered Nurse Magnetizer Manager 02/02/25 Claims Collector Relationship Specialty Start Date End Date Gibson Roth [address] [place] [phone] PCP - General 09/05/20 Jany Bonilla, RN Registered Nurse Magnetizer Manager 02/02/25 Claims Collector Relationship Specialty Start Date End Date FredoniaGibson raygoza [address] [place] [address] PCP - General 09/05/20 Jany Bonilla, RN Registered Nurse Magnetizer Manager 02/02/25 Claims Collector Relationship Specialty Start Date End Date Brinda Bourne MD [address] [place] [address] [place] [address] PCP - General Family Medicine 02/17/25 Jany Bonilla, RN Registered Nurse Magnetizer Manager 02/02/25 Claims Collector Relationship Specialty Start Date End Date Brinda Bourne MD [address] [place] [address] [address] [place] [address] PCP - General Family Medicine 02/17/25 Jany Bonilla RN Registered Nurse Magnetizer Manager 02/02/25 Claims Collector Relationship Specialty Start Date End Date Brinda Bourne MD [address] [place] [address] [address] [place] [address] PCP - General Family Medicine 02/17/25 Jany Bonilla, RN Registered Nurse Magnetizer Manager 02/02/25 Team Status: Active Member Role/Relationship [...] Status Dates Dr. Rigoberto Durand MD Primary care physician Active Team Status: Inactive Member Role/Relationship Status Dates Dr. Rigoberto Durand MD Primary care physician Active Start: April 01, 2025 End: April 01, 2025 Dr. Dax Romero DO Attending physician Active Start: April 01, 2025 End: April 01, 2025 Dr. Dax Romero DO Emergency Departme nt Physician Active Start: April 01, 2025 End: April 01, 2025 Team Status: Active Member Role/Relationship Status Dates Dr. Rigoberto Durand MD Primary care physician Active Start: April 05, 2025 Dr. Rigoberto Durand MD Attending physician Active Start: April 05, 2025 Dr. Shaun Taveras DO Emergency Departme nt Physician Active Start: April 05, 2025 Team Status: Inactive Member Role/Relationship Status Dates Dr. Rigoberto Durand MD Primary care physician Active Start: April 05, 2025 End: April 07, 2025 Dr. Rigoberto Durand MD Admitting physician Active Start: April 05, 2025 End: April 07, 2025 Dr. Rigoberto Durand MD Nurse Practitioner Active Start: April 05, 2025 End: April 07, 2025 Dr. Shaun Taveras DO Emergency Departme nt Physician Active Start: April 05, 2025 End: April 07, 2025 Dr. Jaden Cedillo MD Attending physician Active Start: April 05, 2025 End: April 07, 2025 Dr. Bushra Woodall MD Nurse Practitioner Active Start: April 05, 2025 End: April 07, 2025 Team Status: Active Member Role/Relationship Status Dates Dr. Rigoberto Durand MD Primary care physician Active Start: April 05, 2025 Dr. Esther Hutchins MD Attending physician Active Start: April 05, 2025 Team Status: Active Member Role/Relationship Status Dates Dr. Rigoberto Durand MD Primary care physician Active Start: April 06, 2025 Dr. Rigoberto Durand MD Admitting physician Active Start: April 06, 2025 Dr. Rigoberto Durand MD Nurse Practitioner Active Start: April 06, 2025 Dr. Shanu Taveras , Emergency Departme nt Physician Active Start: April 06, 2025 Dr. Jaden Cedillo MD Attending physician Active Start: April 06, 2025 Dr. Jaden Cedillo MD Nurse Practitioner Active Start: April 06, 2025 Dr. Bushra Woodall MD Nurse Practitioner Active Start: April 06, 2025 Team Status: Active Member Role/Relationship Status Dates Dr. Rigoberto Durand MD Primary care physician Active Start: April 07, 2025 Dr. Rigoberto Durand MD Admitting physician Active Start: April 07, 2025 Dr. Rigoberto Durand MD Nurse Practitioner Active Start: April 07, 2025 Dr. Shaun Taveras , DO Emergency Departme nt Physician Active Start: April 07, 2025 Dr. Jaden Cedillo MD Attending physician Active Start: April 07, 2025 Dr. Jaden Cedillo MD Nurse Practitioner Active Start: April 07, 2025 Dr. Bushra Woodall MD Nurse Practitioner Active Start: April 07, 2025 Team Status: Active Member Role/Relationship Status Dates Dr. Rigoberto Durand MD Primary care physician Active Start: April 07, 2025 Dr. Lv Moreno MD Admitting physician Active Start: April 07, 2025 Dr. Lv Moreno MD Attending physician Active Start: April 07, 2025 Dr. Lv Moreno MD Referring Provider Active Start: April 07, 2025 Team Status: Active Member Role/Relationship Status Dates Dr. Rigoberto Durand MD Primary care physician Active Start: April 12, 2025 Dr. Lv Moreno MD Attending physician Active Start: April 12, 2025 Dr. Lv Moreno MD Referring Provider Active Start: April 12, 2025 Team Status: Inactive Member Role/Relationship Status Dates Dr. Rigoberto Durand MD Primary care physician Active Start: April 13, 2025 End: April 13, 2025 Dr. Kian Simons , Emergency Departm ent Physician Active Start: April 13, 2025 End: April 13, 2025 Team Status: Inactive Member Role/Relationship Status Dates Dr. Rigoberto Durand MD Primary care physician Active Start: April 13, 2025 End: April 13, 2025 Dr. Kian Simons DO Attending physician Active Start: April 13, 2025 End: April 13, 2025 Dr. Kian Simons DO Emergency Departm ent Physician Active Start: April 13, 2025 End: April 13, 2025 Team Status: Inactive Member Role/Relationship Status Dates Dr. Rigoberto Durand MD Primary care physician Active Start: April 12, 2025 End: April 12, 2025 Dr. Lv Moreno MD Attending physician Active Start: April 12, 2025 End: April 12, 2025 Dr. Lv Moreno MD Referring Provider Active Start: April 12, 2025 End: April 12, 2025 Claims Collector Relationship Specialty Start Date End Date Brinda Bourne MD [address] [place] [address], [place] [address] PCP - General Family Medicine 02/17/25 Source Comments (unrecognize d section and content) In the event this informatio n is protected by the Federal Confidentiality of Alcohol and Drug Abuse Patient Records regulations: The Federal rules restrict any use of the information to criminally investigate or prosecute any alcohol or drug abuse patient.[facility] the event this information is protected by the Federal Confidentiality of Alcohol and Drug Abuse Patient Records regulations: The Federal rules restrict any use of the information to criminally investigate or prosecute any alcohol or drug abuse patient.[facility] Scheduled Active and Recently Administ ered Medications (unrecognized section and content) Medication Order 01/30/2025 01/31/2025 02/01/2025 calcium gluconate 2000 mg in 100 mL IVPB premix (COMPLETED) 2,000 mg, IntraVENous, at 50 mL/hr, Administer over 2 Hours, Once, On Fri01/31/25 at 1400, For 1 dose, premix bag 1440 (New Bag - Provider: Aleksandra Adams, RN)1713 (Stopped - Provider: Aleksandra Adams, RN)1729 (Stopped - Provider: Aleksandra Adams RN) [...] RN)2001 (Given - Provider: Charisma Kaminski RN) 0932 (Given - Provider: Aleksandra Adams, JAIMIE)2020 (Given - Provider: Marshall Glez RN) 100 [...] RN)2000 (Given - Provider: Charisma Kaminski RN) 0931 (Given - Provider: Aleksandra Adams RN)2020 (Given [...] RN)2000 (Given - Provider: Charisma Kaminski RN) 09 (Given - Provider: Aleksandra Adams RN)2020 (Given - Provider: Marshall Glez RN) 1000 (Given - Provider: Randy Cornelius, JAIMIE) glipiZIDE (Glucotrol) tablet 2.5 mg 2.5 mg, Oral, Daily before breakfast, First dose on 01/29/25 at 0600, Substituted for glimepiride (Amaryl)., On hold since Fri01/29/2025 at 1333 until manually unheld 0600 (Dose Auto Held - Provider: Jeremy Sanchez DO) 0600 (Dose Auto Held - Provider: Jeremy Sanchez DO) 06 (Dose Auto Held - Provider: Jeremy Sanchez DO)2021 (Unheld by provider - Provider: Automatic Discharge Provider) heparin injection 5,000 Units 5,000 Units, SubCUTAneous, Every 8 hours scheduled (3 times per day), First dose on Fri01/29/25 at 1400 0838 (Given - Provider: Dania Ledesma RN)1638 (Given - Provider: Dania Ledesma RN) 0000 (Given - Provider: Charisma Kaminski RN)0930 (Given - Provider: Aleksandra Adams RN)1711 (Given - Provider: Aleksandra Adams RN)2342 (Given - Provider: Marshall Glez RN) 1000 (Given - Provider: Randy Cornelius RN)1600 (Not Given - Provider: Randy Cornelius RN [...] 0838 (Given - Provider: Dania Ledesma RN) 929 (Given - Provider: Aleksandra Adams, RN) 1000 (Given - Provider: Randy Cornelius, RN) magnesium sulfate IVPB premix 2,000 mg (COMPLETED) 2,000 mg, IntraVENous, at 25 mL/hr, Administer over 2 Hours, Once, On Fri01/30/25 at 0730, For 1 dose, Recommended infusion rate not to exceed 1,000 mg (milligrams) per hour. 0837 (New Bag - Provider: Dania Ledesma RN)114 (Stopped - Provider: Dania Ledesma RN) magnesium sulfate IVPB premix 2,000 mg (COMPLETED) 2,000 mg, IntraVENous, at 25 mL/hr, Administer over 2 Hours, Once, On Fri01/30/25 at 1800, For 1 dose, Recommended infusion rate not to exceed 1,000 mg (milligrams) per hour. 1821 (New Bag - Provider: Dania Ledesma RN)2031 (Stopped - Provider: Charisma Kaminski, JAIMIE) metoprolol succinate XL (Toprol-XL) 24 hr tablet 100 mg 100 mg, Oral, Daily, First dose on Fri01/28/25 at 0900, Do not crush or chew. 0838 (Given - Provider: Dania Ledesma RN) 929 (Given - Provider: Aleksandra Adams, RN) 1000 (Given - Provider: Randy Cornelius, RN) pantoprazole (ProtoNix) EC tablet 40 mg 40 mg, Oral, Daily before breakfast, First dose on Fri01/29/25 at 0600, Do not crush, chew, or split. 0838 (Given - Provider: Dania Ledesma RN) 0529 (Given - Provider: Charisma Kaminski, RN) 0534 (Given - Provider: Marshall Glez [...] RN)2000 (Given - Provider: Charisma Kaminski RN) 929 (Given - Provider: Aleksandra Adams, RN)2020 (Given - Provider: Marshall Glez RN) 100 (Given - Provider: Randy Cornelius, RN) sertraline (Zoloft) tablet 25 mg 25 mg, Oral, Daily, First dose on Fri01/28/25 at 0900 0838 (Given - Provider: Dania Ledesma RN) 929 (Given - Provider: Aleksandra Adams, RN) 100 (Given - Provider: Randy Cornelius, JAIMIE) sucralfate [...] RN) 0529 (Given - Provider: Charisma Kaminski RN)1711 (Given - Provider: Aleksandra Adams RN) 1000 (Given - Provider: Randy Cornelius RN - Comment: group meds with care)1755 (Not [...] Ledesma RN) 0931 (Given - Provider: Aleksandra Adams RN) 1000 (Given - Provider: Randy Cornelius, JAIMIE) therapeutic multivitamin-minerals (Theragran-M) tablet 1 tablet, Oral, Daily, First dose on Fri01/28/25 at 0900 0837 (Given - Provider: Dania Ledesma RN) 0930 (Given - Provider: Aleksandra Adams, JAIMIE) 1000 (Given - Provider: Randy Cornelius RN) torsemide (Demadex) tablet 40 mg 40 mg, Oral, Daily, First dose (after last modification) on Fri02/02/25 at 0900 PRN Medication Order 01/30/2025 01/31/2025 02/01/2025 carboxymethylcellulose PF (Refresh Plus) 0.5 % ophthalmic solution 1 drop 1 drop, Both Eyes, As needed, dry eyes, Starting on Fri01/31/25 at 1227 1442 (Given - Provider: Aleksandra Adams RN) dextrose 5 % infusion 100 mL/hr, IntraVENous, [...] on Fri02/10/25 at 1600, Dose Optimization BRAD <= 2 mcg/ml Mini-Bag Plus bag, Suspected Indication (Select all that apply): Skin and Soft Tissue Infection 0525 (New Bag - Provider: Irene Abraham RN)0935 (Stopped - Provider: Amelia Adams RN)1601 (New Bag - Provider: Amelia Adams RN)2050 (Stopped - Provider: Shawna Montalvo, JAIMIE) 0413 (New Bag - Provider: Shawna Montalvo RN)0834 (Stopped - Provider: Micah Devries RN)1542 (New Bag - Provider: Micah Devries RN)1942 (Stopped - Provider: Geri Parson, JAIMIE) 0349 (New Bag - Provider: Geri Parson, JAIMIE)0811 (Stopped - Provider: Micah Devries RN)1600 (Canceled [...] 24 hours scheduled (Daily), First dose on Tracy 02/10/25 at 0900, Indication of Use: Prophylaxis-DVT/PE, Indications: Prophylaxis of Venous Thromboembolism 0910 (Given - Provider: Amelia Adams RN) 0834 (Given - Provider: Micah Devries RN - Comment: abd) 0937 (Given - Provider: Micah Devries RN) ferrous sulfate tablet 325 mg 325 mg, Oral, Daily with breakfast, First dose on Tracy 02/10/25 at 0800 0909 (Given - Provider: Amelia Adams RN) 0833 (Given - Provider: Micah Devries RN) 0943 (Given - Provider: Micah Devries RN) gabapentin (Neurontin) capsule 100 mg 100 mg, Oral, 2 times daily, First dose on Tracy 02/10/25 at 0900 0910 (Given - Provider: Amelia Adams RN)2105 (Given - Provider: Shawna Montalvo RN) 0833 (Given - Provider: Micah Devries RN)2041 (Given - Provider: Geri Parson RN) 0937 (Given - Provider: Micah Devries RN) glipiZIDE (Glucotrol) tablet 2.5 mg 2.5 mg, Oral, Daily before breakfast, First dose on Tracy 02/10/25 at 0700, Substituted for glimepiride (Amaryl). 0534 (Given - Provider: Irene Abraham RN) 06 (Given - Provider: Shawna Montalvo RN) 06 (Given - Provider: Geri Parson RN) Insulin [...] 0-12 Units, SubCUTAneous, Nightly, First dose on Fri02/10/25 at 2100, If eating or bolus tube [...] 0531 (Given - Provider: Irene Abraham RN) 06 (Given - Provider: Shawna Montalvo, JAIMIE) 623 (Given - Provider: Geri Parson, JAIMIE) metoprolol succinate XL (Toprol-XL) 24 hr tablet 100 mg 100 mg, Oral, Daily, First dose on Tracy 02/10/25 at 0900, Do not crush or chew. 09 (Given - Provider: Amelia Adams RN) 0834 (Given - Provider: Micah Devries RN) 0937 (Given - Provider: Micah Devries RN) pantoprazole (ProtoNix) EC tablet 40 mg 40 mg, Oral, Daily before breakfast, First dose on Tracy 02/10/25 at 0700, Do not crush, chew, or split. 0531 (Given - Provider: Irene Abraham RN) 606 (Given - Provider: Shawna Montalvo RN) 623 (Given - Provider: Geri Parson, JAIMIE) rosuvastatin (Crestor) tablet 20 mg 20 mg, Oral, Daily, First dose on Tracy 02/10/25 at 0900 09 (Given - Provider: Amelia Adams RN) 0833 (Given - Provider: Micah Devries RN) 0937 (Given - Provider: Micah Devries RN) sacubitril-valsartan (Entresto) 24-26 MG per tablet 1 tablet 1 tablet, Oral, 2 times daily, First dose on Tracy 02/10/25 at 0900, Contraindicated in combination with ROLO inhibitors. Ensure a minimum of 36 hours between any ROLO inhibitor dose and sacubitril-valsartan. 09 (Given - Provider: Amelia Adams RN)2105 (Given - Provider: Shawna Montalvo, JAIMIE) 08 (Given - Provider: Micah Devries RN)2041 (Given - Provider: Geri Parson RN) 0935 (Given - Provider: Micah Devries RN) sertraline (Zoloft) tablet 25 mg 25 mg, Oral, Daily, First dose on Tracy [...] Shawna Montalvo, JAIMIE)1542 (Given - Provider: Micah Devries RN) 0624 [...] loose stool 1013 (Given - Provider: Amelia Adams, RN) magnesium sulfate IVPB 4,000 mg(Linked Group [...] PRN, sleep, Starting on Fri02/11/25 at 2124 2042 (Given - Provider: Geri Parson RN) ondansetron [...] BE BASED ON THE PRIMARY CLINICAL RECORDS. [facility]. provides no warranty or guarantee of the accuracy or completeness of information in this document.
== END 2025-05-05 04:37 | disposition home or self-care (01) ==
PROVIDERS: Emergency Provider Emergency Medicine; PCP Family Medicine; Visit Provider Emergency Medicine
DX: Z51.5 Encounter for palliative care (principal); N18.4 Chronic kidney disease, stage 4 (severe); I50.22 Chronic systolic (congestive) heart failure; I13.0 Hypertensive heart and chronic kidney disease with heart failure and stage 1 through stage 4 chronic kidney disease, or unspecified chronic kidney disease; E11.22 Type 2 diabetes mellitus with diabetic chronic kidney disease; N17.9 Acute kidney failure, unspecified; Z66 Do not resuscitate; Z95.0 Presence of cardiac pacemaker
CPT/HCPCS: 96374; 96375; 96376; 99285; A4216; J2405